=== PATIENT | female | born 1955 | race Caucasian/White ===

== ENCOUNTER → 2019-05-27 23:09 | Outpatient (CLI) | payer MEDICAID, SELFPAY ==
[2019-05-27 18:20] VITALS: BMI 30.1
[2019-05-27 23:15] LABS: Absolute Lymphocyte Count 2.09 X10^3/uL (0.83-4.51); Absolute Neutrophil Count 6.1 X10^3/uL (2.0-7.7); Basophil# 0.07 X10^3/uL; Basophil% 0.8 % (0-1); Eosinophil# 0.16 X10^3/uL; Eosinophils% 1.8 % (0-5); Hematocrit 47.5 % (37-47); Hemoglobin 15.4 g/dL (12.0-15.0); Lymphocyte # 2.09 X10^3/ul (4.0); Lymphocyte % 23.1 % (19-41); Mean Corp Hgb Conc 32.4 g/dL (32-36); Mean Corpuscular Hgb 30.6 pg (27.0-32.0); Mean Corpuscular Volume 94.2 fL (81-99); Mean Platelet Vol. 10.2 fl (6.2-12.0); Monocyte% 6.6 % (0-10); NRBC Flagged by Analyzer 0 % (0-5); Neutrophil % 67.5 % (47-70); Platelet Count 296 K/mm3 (150-450); RBC Distribution Width CV 13.3 % (11.6-14.6); RBC Distribution Width SD 46.5 fl (35.1-43.9); Red Blood Count 5.04 M/mm3 (4.2-5.4)
[2019-05-27 23:35] LABS: ALB/GLOB Ratio 1.3 RATIO (0.9-2.4); AST(SGOT) 14 U/L (15-37); Alanine Aminotransfer ALT/SGPT 27 U/L (13-56); Albumin, Serum 4.2 g/dL (3.2-5.0); Alkaline Phosphatase 104 U/L (45-117); Anion Gap 4 (5-15); BUN 24 mg/dL (7-18); BUN/Creat Ratio 27.1 RATIO (10-20); Calcium,Total 9.3 mg/dL (8.5-10.1); Chloride 108 mmol/L (98-107); Creatinine, Serum 0.89 mg/dL (0.55-1.02); EST Glomerular Filtration Rate 68 mL/min (>60); Est Glom Filt Rate - Afr Amer 82 mL/min (>60); Globulin 3.2 g/dL (2.2-4.2); Glucose 101 mg/dL (74-106); Magnesium 2.2 mg/dL (1.6-2.6); Potassium 4.4 mmol/L (3.5-5.1); Protein, Total 7.4 g/dL (6.4-8.2); Sodium Level 141 mmol/L (136-145); Thyroid Stim Hormone (TSH) 1.23 uIU/mL (0.358-3.74)
== END ==
PROVIDERS: Referring Provider Nurse Practitioner; Visit Provider Nurse Practitioner
DX: I49.8 Other specified cardiac arrhythmias (principal); I10 Essential (primary) hypertension
CPT/HCPCS: 80053; 83735; 84443; 84484; 85025; 86141

== ENCOUNTER → 2020-05-16 | Outpatient (CLI) | payer MEDICARE, SELFPAY ==
[2020-05-16 15:57] VITALS: BMI 31.8
[2020-05-16 21:37] LABS: Absolute Lymphocyte Count 2.28 X10^3/uL (0.83-4.51); Absolute Neutrophil Count 5.1 X10^3/uL (2.0-7.7); Basophil# 0.08 X10^3/uL; Eosinophil# 0.17 X10^3/uL; Eosinophils% 2.1 % (0-5); Hematocrit 46.4 % (37-47); Hemoglobin 15.1 g/dL (12.0-15.0); Lymphocyte # 2.28 X10^3/ul (4.0); Lymphocyte % 27.7 % (19-41); Mean Corp Hgb Conc 32.5 g/dL (32-36); Mean Corpuscular Hgb 30.6 pg (27.0-32.0); Mean Corpuscular Volume 94.1 fL (81-99); Mean Platelet Vol. 10.4 fl (6.2-12.0); Monocyte# 0.55 X10^3/uL; Monocyte% 6.7 % (0-10); NRBC Flagged by Analyzer 0 % (0-5); Neutrophil # 5.13 X10^3/uL (2.7-7.7); Neutrophil % 62.1 % (47-70); Platelet Count 311 K/mm3 (150-450); RBC Distribution Width CV 12.5 % (11.6-14.6); RBC Distribution Width SD 43.3 fl (35.1-43.9); Red Blood Count 4.93 M/mm3 (4.2-5.4); White Blood Count 8.2 K/mm3 (4.4-11.0)
[2020-05-16 22:07] LABS: ALB/GLOB Ratio 1.4 RATIO (0.9-2.4); AST(SGOT) 17 U/L (15-37); Alanine Aminotransfer ALT/SGPT 24 U/L (13-56); Albumin, Serum 4.3 g/dL (3.2-5.0); Alkaline Phosphatase 95 U/L (45-117); Anion Gap 6 (5-15); BUN 12 mg/dL (7-18); BUN/Creat Ratio 13.7 RATIO (10-20); Calcium,Total 9.2 mg/dL (8.5-10.1); Chloride 107 mmol/L (98-107); Cholesterol 149 mg/dL (200); Creatinine, Serum 0.88 mg/dL (0.55-1.02); EST Glomerular Filtration Rate 69 mL/min (>60); Est Glom Filt Rate - Afr Amer 83 mL/min (>60); Globulin 3.1 g/dL (2.2-4.2); Glucose 88 mg/dL (74-106); High Density Lipoprotein 57 mg/dL; Potassium 4.1 mmol/L (3.5-5.1); Protein, Total 7.4 g/dL (6.4-8.2); Sodium Level 140 mmol/L (136-145); Triglycerides 65 mg/dL; Very Low Density Lipoprotein 13 mg/dL (5-40)
== END | disposition home or self-care (01) ==
PROVIDERS: Referring Provider Nurse Practitioner; Visit Provider Nurse Practitioner
DX: I10 Essential (primary) hypertension (principal)
CPT/HCPCS: 80053; 80061; 85025

== ENCOUNTER → 2020-06-07 07:05 | Outpatient (CLI) | payer MEDICARE, SELFPAY ==
[2020-05-16 15:57] VITALS: BMI 31.8
[2020-05-31 12:59] VITALS: BMI 31.8
--- NOTE | 2020-06-07 07:09 | CT_ITS ---
STUDY: CT CHEST WITH CONTRAST REASON FOR EXAM: Female, 64 years old. BREAST CANCER STAGING. RIGHT LUMPECTOMY. RADIATION DOSAGE (If Supplied By Facility): CTDIvol = ( 14.65 ) mGy, DLP = ( 436.51 ) mGycm TECHNIQUE: Transaxial imaging was performed following intravenous administration of IV 100mL Isovue-300. Multiplanar coronal and sagittal images were reformatted. Individualized dose optimization techniques were used for this CT. COMPARISON: None. FINDINGS: Surgical clips are seen in the right axillary region. Postoperative changes are seen within the deep central portion of the right breast including but the history of prior lumpectomy. Small benign-appearing bilateral axillary lymph nodes. Mild degree of emphysematous changes. Minimal increased markings at the right lung base suggestive of past or atelectasis. There is no demonstrated pleural abnormality. Normal heart and pericardium. There are multiple small lymph nodes within the mediastinum, which are normal in size and morphology most compatible with reactive lymph hyperplasia. Normal hilar regions. Normal enhanced pulmonary arteries. Normal aorta arch and descending thoracic aorta. There are multi-level degenerative changes of the thoracic spine. Multiple cysts are seen in the liver of varying sizes. CT/Chest WITH Contrast IMPRESSION: Mild degree of right basilar atelectasis. Status post right lumpectomy and right axillary node dissection. Multiple hepatic cysts. Electronically Signed: Chandu Dean, at 12:59 EDT , Service support ,
[2020-06-07 07:35] LABS: Absolute Lymphocyte Count 1.73 X10^3/uL (0.83-4.51); Absolute Neutrophil Count 3.7 X10^3/uL (2.0-7.7); Basophil# 0.05 X10^3/uL; Basophil% 0.8 % (0-1); Eosinophil# 0.12 X10^3/uL; Hematocrit 48.8 % (37-47); Hemoglobin 15.6 g/dL (12.0-15.0); Lymphocyte # 1.73 X10^3/ul (4.0); Lymphocyte % 28.7 % (19-41); Mean Corpuscular Hgb 30.8 pg (27.0-32.0); Mean Corpuscular Volume 96.3 fL (81-99); Monocyte# 0.43 X10^3/uL; Monocyte% 7.1 % (0-10); NRBC Flagged by Analyzer 0 % (0-5); Neutrophil # 3.67 X10^3/uL (2.7-7.7); Neutrophil % 61.1 % (47-70); Platelet Count 279 K/mm3 (150-450); RBC Distribution Width CV 13.1 % (11.6-14.6); RBC Distribution Width SD 46.3 fl (35.1-43.9); Red Blood Count 5.07 M/mm3 (4.2-5.4)
[2020-06-07 07:49] LABS: ALB/GLOB Ratio 1.3 RATIO (0.9-2.4); AST(SGOT) 17 U/L (15-37); Alanine Aminotransfer ALT/SGPT 25 U/L (13-56); Alkaline Phosphatase 92 U/L (45-117); Anion Gap 4 (5-15); BUN 19 mg/dL (7-18); Calcium,Total 9.8 mg/dL (8.5-10.1); Chloride 109 mmol/L (98-107); Creatinine, Serum 0.95 mg/dL (0.55-1.02); EST Glomerular Filtration Rate 63 mL/min (>60); Est Glom Filt Rate - Afr Amer 76 mL/min (>60); Glucose 98 mg/dL (74-106); Potassium 4.5 mmol/L (3.5-5.1); Sodium Level 143 mmol/L (136-145)
[2020-06-07 15:15] LABS: Xtra Tube EP Lab EXTRA TUBE
== END ==
PROVIDERS: Internal Medicine Hematology & Oncology; PCP Nurse Practitioner; Referring Provider Student in an Organized Health Care Education/Training Program; Visit Provider Student in an Organized Health Care Education/Training Program
DX: C50.211 Malignant neoplasm of upper-inner quadrant of right female breast (principal)
CPT/HCPCS: 36415; 71260; 80053; 85025; Q9967

== ENCOUNTER → 2020-09-01 07:53 | Outpatient (CLI) | payer MEDICARE, MEDICAID, SELFPAY ==
[2020-05-31 12:59] VITALS: BMI 31.8
[2020-08-17 11:40] VITALS: BMI 32.2
[2020-08-31 09:16] VITALS: BMI 32.4
--- NOTE | 2020-09-01 08:02 | ECHODONC_ITS ---
Reason For Study: ARRHYTHMIA Procedure This was a 2D Doppler, Color Flow transthoracic echocardiogram. Myocardial strain analysis was performed in this exam to aid in the assessment of cardiac function. Exam performed in department. Left Ventricle Normal LV size. Left ventricular systolic function is normal. The estimated ejection fraction is 60 %. Stage 1 diastolic dysfunction. No regional wall motion abnormalities noted. Right Ventricle Normal RV size. Normal systolic function. Atria Normal left atrium. Normal right atrium. Mitral Valve Normal mitral valve. Tricuspid Valve Normal tricuspid valve. Mild tricuspid valve insufficiency. Pulmonary artery systolic pressure is 30 mmHg. Aortic Valve Normal aortic valve. Trisinus/trileaflet aortic valve. Pulmonic Valve Normal pulmonic valve. Great Vessels Normal aortic root. Pericardium/Pleural No pericardial effusion. MMode/2D Measurements & Calculations LVIDd: 5.2 cm IVSd: 0.82 cm Ao root diam: 3.5 cm LVIDs: 3.4 cm LVPWd: 0.88 cm RVDd: 2.8 cm FS: 34.0 % LAV(MOD-bp): 78.3 ml LA A4 area: 22.2 cm2 LA dimension(2D): 3.8 cm LAV(MOD-bp) Indexed: 42.2 ml/m2 LAV(MOD-sp2): 70.9 ml LAV(MOD-sp4): 70.2 ml RA A4 area: 15.3 cm2 Time Measurements MV dec time: 0.12 sec Doppler Measurements & Calculations MV E max evelio: 67.0 cm/sec Lat Peak E' Evelio: 10.6 cm/sec Med Peak E' Evelio: 7.3 cm/sec MV A max evelio: 83.4 cm/sec E/E' lat: 6.3 E/E' med: 9.2 MV E/A: 0.80 Ao V2 max: 134.7 cm/sec LV V1 max: 97.0 cm/sec PA V2 max: 122.9 cm/sec Ao max P.3 mmHg LV V1 max P.8 mmHg TR max evelio: 257.9 cm/sec TR max P.6 mmHg Interpretation Summary Normal LV size. Left ventricular systolic function is normal. The estimated ejection fraction is 60 %. Stage 1 diastolic dysfunction. The global longitudinal strain is normal. The global longitudinal strain = -19.7 % (normal). Ordering Physician: Nico Hook Referring Physician: Loan Dias Performed By: Denise Mueller RDCS, RVT
== END ==
PROVIDERS: PCP Nurse Practitioner; Referring Provider Internal Medicine Cardiovascular Disease; Visit Provider Internal Medicine Cardiovascular Disease
DX: I49.8 Other specified cardiac arrhythmias (principal); I49.49 Other premature depolarization; I10 Essential (primary) hypertension; C50.311 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 female breast
CPT/HCPCS: 93306; 93356

== ENCOUNTER 2020-09-07 10:24 | Observation (INO) | payer MEDICARE, MEDICAID, SELFPAY ==
[2020-05-31 12:59] VITALS: BMI 31.8
[2020-08-31 09:16] VITALS: BMI 32.4
[2020-09-07] VITALS (13 sets, daily range): BP systolic 114–183; BP diastolic 60–108; PULSE 82–102; RESP 10–22; TEMP 36.7–36.8; O2SAT 96–100; BMI 33.1; BMI 31.8; BMI 31.9
--- NOTE | 2020-09-07 10:28 | NURSING ---
NO OLD EKGS
--- NOTE | 2020-09-07 10:54 | EKG12_ITS ---
Test Reason : CP Blood Pressure : / mmHG Vent. Rate : 097 BPM Atrial Rate : 097 BPM P-R Int : 134 ms QRS Dur : 090 ms QT Int : 360 ms P-R-T Axes : 051 -37 042 degrees QTc Int : 457 ms Normal sinus rhythm Left axis deviation Abnormal ECG Confirmed by HARRY LEIVA, ROBIN ([id number]), editor city ALONSO VANEGAS ([id number]) on 09/08/2020 2:10:08 PM Referred By: GORGE Confirmed By:ROBIN MCDONALD MD
--- NOTE | 2020-09-07 10:54 | RAD_ITS ---
STUDY: X-RAY CHEST REASON FOR EXAM: Female, 64 years old. CHEST PRESSURE STARTED SATURDAY NIGHT, BREAST CA RIGHT SIDE TECHNIQUE: Single AP portable view of the chest. COMPARISON: None. FINDINGS: A left-sided port catheter is in situ with the tip at the junction of the superior vena cava and right atrium. EKG electrodes are seen. Surgical clips are seen overlying the right breast. The lungs are clear and expanded. There is no demonstrated pleural abnormality. Normal size heart. Normal mediastinum and sydni. Normal visualized pulmonary arteries. Normal visualized aortic arch and descending thoracic aorta. Normal visualized thoracic spine. Normal visualized ribs, clavicles, and shoulders. There is no demonstrated abnormality of the visualized soft tissue structures of the upper abdomen. RAD/Chest 1 View (Portable) IMPRESSION: No acute abnormality is seen. Electronically Signed: Chandu Dean MD at 12:06 EST , Service support ,
--- NOTE | 2020-09-07 10:55 | ED.DCSUM_ITS ---
- ER Visit Summary Date of Service: 09/07/20 Chief Complaint: Chest pain History of Present Illness: The patient is a 64 F who presents with chest pain that has been constant for the past 2 days. Patient states it feels like a pressure over her upper substernal area. Patient states it has been waxing and waning over the past 2 days. Patient states nothing makes it better or worse. Patient denies any nausea or vomiting. Patient does admit to occasional diaphoresis. Patient also admits to some mild cough and shortness of breath. Patient denies any fevers. Patient admits to some lightheadedness and palpitations. Patient states she does have a history of PVCs. Patient has a history of hypertension and right breast cancer. Patient denies any other PE or cardiac risk factors. Physical Examination: Vital signs are stable. Patient is afebrile. Patient is in no acute distress. Oral mucosa is pink and moist. Neck is supple. Trachea is midline. There is no JVD noted. Heart was regular rate and rhythm. Lungs are clear and equal bilaterally. Abdomen is soft. Bowel sounds are normal. There is no tenderness. There is no rebound or guarding noted. Skin is warm dry. Cranial nerves II through XII are intact. There are no focal motor or sensory deficits noted. Extremities are intact. There is no calf tenderness or edema. Test Results: EKG was obtained. On my interpretation, there is a normal sinus rhythm with a rate of 97. There are no acute ST or T wave changes. CBC and basic metabolic profile were obtained and were essentially within normal limits. Troponin was normal. D-dimer was normal. Portable 1 view chest x-ray was obtained. On my interpretation, lung julian are clear. There is normal cardiac silhouette. Bony thorax is normal. There is no acute process noted. Radiologist also interpreted the x-ray and agrees. Emergency Department Course and Treatment: Patient was given aspirin and sublingual nitroglycerin here. Patient had minimal relief with her sublingual n itroglycerin. Patient was given a dose of morphine. Patient has a HEART score of 4. Case was discussed with the hospitalist. Patient will be admitted to PCU for observation. Patient understood and was agreeable with the plan. All questions were answered. Disposition: Admit to hospital for observation Impression: 1. Chest pain This note was generated with MagMeation software. It may contain incorrect words, spelling, and punctuation that were not noted in review of the chart prior to signing ED Disposition - Plan for ED Patient: Disposition: Acute Care Hospital [facility] [place] Diagnosis: Chest pain Referrals: Loan Dias NP, CLOTHING SUPERVISOR-C [Primary Care Provider] -
[2020-09-07] MEDS: Aspirin 81 MG TAB.CHEW 324 MG PO (11:15)
[2020-09-07] MEDS: Nitroglycerin SL (ED/IMG/CATH) 0.4 MG TABLET SUBLINGUAL ×2 (11:28→11:41)
[2020-09-07 11:45] LABS: Hematocrit 35.9 % (37-47); Mean Corp Hgb Conc 33.4 g/dL (32-36); Mean Corpuscular Hgb 32.2 pg (27.0-32.0); Mean Corpuscular Volume 96.2 fL (81-99); Mean Platelet Vol. 9.4 fl (6.2-12.0); POSITIVE COUNT YES; POSITIVE MORPHOLOGY YES; Platelet Count 322 K/mm3 (150-450); RBC Distribution Width CV 14.9 % (11.6-14.6); RBC Distribution Width SD 51.8 fl (35.1-43.9); Red Blood Count 3.73 M/mm3 (4.2-5.4); White Blood Count 7.4 K/mm3 (4.4-11.0)
[2020-09-07 11:49] LABS: Differential Indicated MANUAL DIFF
[2020-09-07 11:53] LABS: D-Dimer Quantitative (DVT/PE) 0.45 FEU/ug/m (0.27-0.49)
[2020-09-07 12:02] LABS: Anion Gap 3 (5-15); BUN 19 mg/dL (7-18); BUN/Creat Ratio 23.1 RATIO (10-20); Chloride 111 mmol/L (98-107); Creatinine, Serum 0.82 mg/dL (0.55-1.02); EST Glomerular Filtration Rate 74 mL/min (>60); Est Glom Filt Rate - Afr Amer 90 mL/min (>60); Estimated Creatinine Clearance 56.58 ml/min; Glucose 90 mg/dL (74-106); Potassium 4.1 mmol/L (3.5-5.1); Sodium Level 142 mmol/L (136-145)
[2020-09-07 12:24] LABS: Eosinophil 1 % (0-5); Lymphocyte 15 % (19-41); Monocyte 6 % (0-10); Myelocyte 1 (0-0); Neutrophil-Segmented 76 % (47-70); Platelet Estimate ADEQUATE (ADEQ); Promyelocyte 1 (0-0); Red Cell Morphology NORM C+C NORMAL (NORM C&C); Total Cells Counted 100 (MANUAL DIFF)
[2020-09-07 12:25] LABS: Absolute Lymphocyte Count 1.11 X10^3/uL (0.83-4.51); Absolute Neutrophil Count 5.6 X10^3/uL (2.0-7.7); Lymphocyte # 1.11 X10^3/ul (4.0)
--- NOTE | 2020-09-07 13:20 | NURSING ---
PCU CP PAINTSIL
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
--- NOTE | 2020-09-07 13:47 | PCS.PANDOC ---
PANDEMIC DOCUMENTATION INITIATED: Date: 09/07/2020 Time: [id number]
[2020-09-07 15:00] LABS: AST(SGOT) 73 U/L (15-37); Alanine Aminotransfer ALT/SGPT 117 U/L (13-56); Albumin, Serum 3.6 g/dL (3.2-5.0); Alkaline Phosphatase 88 U/L (45-117); Bilirubin, Direct 0.09 mg/dL (0.00-0.30); Globulin 2.9 g/dL (2.2-4.2); Protein, Total 6.5 g/dL (6.4-8.2)
[2020-09-07] MEDS: 0.9% Saline Lock 10 ML Syringe IV (15:16)
[2020-09-07] MEDS: 0.9% Normal Saline 1,000 ML 100 ML IV ×2 (15:16→23:34)
--- NOTE | 2020-09-07 16:28 | EKG12_ITS ---
Test Reason : CHEST PAIN Blood Pressure : / mmHG Vent. Rate : 093 BPM Atrial Rate : 093 BPM P-R Int : 134 ms QRS Dur : 090 ms QT Int : 374 ms P-R-T Axes : 041 -37 033 degrees QTc Int : 465 ms Normal sinus rhythm Left axis deviation Abnormal ECG No previous ECGs available Confirmed by SERGIO LEIVA, KIT ([id number]), newspaper editor managing RICHARD HINSON ([id number]) on 09/19/2020 12:59:45 PM Referred By: TERESITA Confirmed By:SARAI HILL MD
[2020-09-07] MEDS: hydrOXYzine PAM 25 MG Capsule 50 MG PO (20:54)
[2020-09-08] VITALS (7 sets, daily range): BP systolic 122–130; BP diastolic 71–84; PULSE 76–106; RESP 17–18; TEMP 36.6–37.3; O2SAT 97–100
--- NOTE | 2020-09-08 05:00 | EKG12_ITS ---
Test Reason : AM Blood Pressure : / mmHG Vent. Rate : 080 BPM Atrial Rate : 080 BPM P-R Int : 150 ms QRS Dur : 092 ms QT Int : 404 ms P-R-T Axes : 041 -34 -09 degrees QTc Int : 465 ms Normal sinus rhythm Left axis deviation Nonspecific T wave abnormality Abnormal ECG When compared with ECG of 07-SEP-2020 10:27, MANUAL COMPARISON REQUIRED, DATA IS UNCONFIRMED Confirmed by HARRY LEIVA, ROBIN ([id number]), digital editor ALONSO VANEGAS ([id number]) on 09/14/2020 11:20:09 AM Referred By: TERESITA Confirmed By:ROBIN MCDONALD MD
[2020-09-08 06:10] LABS: Hematocrit 35.8 % (37-47); Hemoglobin 11.8 g/dL (12.0-15.0); Mean Corpuscular Hgb 32.2 pg (27.0-32.0); Mean Corpuscular Volume 97.8 fL (81-99); Mean Platelet Vol. 9.2 fl (6.2-12.0); POSITIVE COUNT YES; POSITIVE MORPHOLOGY YES; Platelet Count 293 K/mm3 (150-450); RBC Distribution Width CV 14.9 % (11.6-14.6); RBC Distribution Width SD 52.9 fl (35.1-43.9); Red Blood Count 3.66 M/mm3 (4.2-5.4); White Blood Count 5.4 K/mm3 (4.4-11.0)
[2020-09-08 06:16] LABS: Differential Indicated MANUAL DIFF
[2020-09-08 06:33] LABS: Total Cells Counted 100 (MANUAL DIFF)
[2020-09-08 06:37] LABS: Basophil 1 % (0-1); Eosinophil 2 % (0-5); Lymphocyte 18 % (19-41); Metamyelocyte 1 % (0-1); Monocyte 6 % (0-10); Myelocyte 2 (0-0); Neutrophil-Band 1 % (0-5); Neutrophil-Segmented 69 % (47-70); Platelet Estimate ADEQUATE (ADEQ)
[2020-09-08 06:38] LABS: Absolute Neutrophil Count 3.8 X10^3/uL (2.0-7.7); Neutrophil # 3.75 X10^3/uL (2.7-7.7); Red Cell Morphology NORM C+C NORMAL (NORM C&C)
[2020-09-08 06:39] LABS: Absolute Lymphocyte Count 0.96 X10^3/uL (0.83-4.51); Lymphocyte # 0.96 X10^3/ul (4.0)
[2020-09-08 06:43] LABS: ALB/GLOB Ratio 1.1 RATIO (0.9-2.4); AST(SGOT) 54 U/L (15-37); Alanine Aminotransfer ALT/SGPT 101 U/L (13-56); Albumin, Serum 3.1 g/dL (3.2-5.0); Alkaline Phosphatase 81 U/L (45-117); Anion Gap 5 (5-15); BUN 19 mg/dL (7-18); BUN/Creat Ratio 23.5 RATIO (10-20); Calcium,Total 8.5 mg/dL (8.5-10.1); Chloride 112 mmol/L (98-107); Creatinine, Serum 0.81 mg/dL (0.55-1.02); EST Glomerular Filtration Rate 75 mL/min (>60); Est Glom Filt Rate - Afr Amer 91 mL/min (>60); Estimated Creatinine Clearance 57.28 ml/min; Globulin 2.8 g/dL (2.2-4.2); Glucose 85 mg/dL (74-106); Potassium 4.1 mmol/L (3.5-5.1); Protein, Total 5.9 g/dL (6.4-8.2); Sodium Level 142 mmol/L (136-145)
[2020-09-08] MEDS: Lisinopril 10 MG Tablet PO (06:44)
[2020-09-08] MEDS: Pantoprazole Sodium 20 MG Tablet PO (06:44)
[2020-09-08] MEDS: Acetaminophen 325 MG Tablet 650 MG PO (10:00)
[2020-09-08 10:11] LABS: Pathologist Review Reviewed
[2020-09-08 10:14] LABS: Pathologist Review Reviewed
--- NOTE | 2020-09-08 13:25 | STRESSREP ---
Stress Test Report Pharmacologic myocardial perfusion stress test. 64-year-old lady with a history of chest pain. Stress protocol: Resting EKG demonstrates normal sinus rhythm with a rate of 90 bpm normal intervals are noted resting blood pressure is 144/80 mmHg. 0.4 mg of regadenoson was infused per usual protocol followed by rapid intravenous saline flush injection continuous EKG monitoring was performed. The maximum heart rate attained was 142 bpm which was 91% of max impacted heart rate the maximum workload was 1 metabolic equivalent. At rest there were no ST or T wave changes noted suggest ischemia at peak exercise nonspecific ST-T wave changes were noted with no meet the criteria for ischemia. No clinical angina was noted the test was terminated due to end of the protocol. Myocardial perfusion protocol. 11.3 mCi of technetium 99m sestamibi was injected at rest. 0.4 mg of regadenoson was infused per usual protocol. At peak infusion 30.0 mCi of technetium 99m sestamibi was injected stress images were obtained stress and rest images were reconstructed and compared in the short axis vertical long horizontal long axis. Gated images were also obtained Perfusion SPECT analysis: Review of the images demonstrate normal uptake of tracer noted in all areas of the myocardium the resting images similarly demonstrate normal uptake of tracer noted in all areas of the myocardium. No reversibility is noted suggest ischemia no previous infarct is noted. Gated SPECT analysis: The gated ejection fraction is 58%. Conclusion: Normal pharmacologic myocardial perfusion stress test. Preserved ejection fraction.
--- NOTE | 2020-09-08 13:36 | DCINST_ITS ---
- Discharge Diagnoses Current Active Problems: Current Active and Chronic Problems (Last Reviewed 08/31/20 @ 09:14 by Carin Carnes) Chest pain (Acute) Breast cancer of lower-inner quadrant of right female breast (Chronic) Essential (primary) hypertension (Chronic) You will use the following diet at home:: No restrictions Your food should be the consistency of: Regular Your liquids should be the consistency of: Regular/Thin Allergies/Adverse Reactions: Allergies adhesive tape Allergy (Intermediate, Verified 09/07/20 10:25) Hives oxycodone Allergy (Intermediate, Verified 09/07/20 10:25) Rash Medications to take at Discharge Lidocaine/Prilocaine [Lidocaine-Prilocaine Cream] 1 gm TP DAILY PRN PRN 30 Days #1 tube 06/13/20 Multivitamin/Iron/Folic Acid [Centrum Women Tablet] 1 ea PO DAILY 06/13/20 Ondansetron [Ondansetron Odt] 8 mg PO Q8H PRN PRN 10 Days #30 tab.rapdis 06/13/20 lisinopril 10 mg tablet 10 mg PO DAILY #90 tab 07/29/20 omeprazole magnesium 20 mg tablet,delayed release 20 mg PO DAILY 08/08/20 Hydroxyzine HCl 50 mg PO QHS 08/17/20 Triamcinolone 0.1% Ointment [Kenalog] 1 applic TOPICAL BID 08/17/20 Primary Care Physician: Loan Dias POOL MANAGER, POOL MANAGER-C [Primary Care Provider] - Within 2 Weeks Test Results: Test results from this visit will be discussed in further detail at your follow- up appointment, if applicable. Please Follow Up With: Antonia Escalante MD When: 09/13/2020, already scheduled. Proposed Discharge Date: 09/08/20
--- NOTE | 2020-09-08 13:38 | DS.PCM_ITS ---
Discharge Date and Diagnosis - Problem List Patient Problems: Active and Suspected Problems (Last Reviewed 08/31/20 @ 09:14 by Carin Carnes) Chest pain (Acute) Date of Admission: 09/07/20 Date of Discharge: 09/08/20 - Primary Discharge Diagnosis Acute Problems: Active Problems (Last Reviewed 08/31/20 @ 09:14 by Carin Carnes) Chest pain (Acute) - Secondary Discharge Diagnosis Chronic Problems: Chronic Problems (Last Reviewed 08/31/20 @ 09:14 by Carin Carnes) Breast cancer of lower-inner quadrant of right female breast (Chronic) Ventricular trigeminy (Chronic) Essential (primary) hypertension (Chronic) Hospital Course and Treatment Imaging Results: 09/08/20 05:55 Nuclear Stress Test - Chemical [NM] AM (NON MEDS) Operations: None Procedures: None Summary of Care Provided: The patient is a 64 year old F presents with midsternal chest pain that radiates to her back. Just persistent. Did not wax or wane. Presented to the emergency room for evaluation. Patient underwent a cardiac work-up with EKG, troponins and a stress test, all of which were negative. On exam, patient had no reproducible anterior chest wall tenderness but did have some slight back tenderness in the area of her complaints. Discussed with the patient that is not cardiac would not do any additional work-up in the hospital and reassurance provided to her. Though patient was stated that she is does continue to have persistent symptoms or if they do get worse and that may warrant further evaluation but no additional evaluation is needed at this time. [] Patient Problems: Active and Suspected Problems (Last Reviewed 08/31/20 @ 09:14 by Carin Carnes) Chest pain (Acute) - Physical Exam Vitals/I&O's: Vital Signs Temp Pulse Resp BP Pulse Ox 37.3 C 90 18 123/71 H 99 09/08/20 09:45 09/08/20 11:00 09/08/20 09:45 09/08/20 09:45 09/08/20 09:45 Oxygen Delivery Method Room Air Weight: 82.9 kg Body Mass Index (BMI) 31.8 Intake and Output for Last 24 Hours 09/06/20 09/07/20 09/08/20 23:59 23:59 23:59 Intake Total 1190 / 1190 625 / 625 Balance 1190 / 1190 / 625 General: Alert, No apparent distress HEENT: Atraumatic, Normocephalic Oral: Moist Mucosa, No Gingival or Mucosal Lesions/ Ulcerations Neck: No Nodes, Thyroid Normal Size and Texture Lungs: Clear to auscultation, Normal air movement, No rhonchi, No wheeze Cardiovascular: Regular rate, Regular Rhythm, Normal S1, Normal S2 Abdomen: Bowel Sounds Present, Soft, Non Tender, Non-Distended, No Hepato- splenomegaly Extremities: No edema, No Calf Tenderness Laboratory Results 09/07/20 11:25: Diff Path Review Reviewed 09/07/20 14:11: Total Bilirubin 0.40, Direct Bilirubin 0.09, AST 73 H, ALT 117 H , Alkaline Phosphatase 88, Troponin I < 0.015, Total Protein 6.5, Albumin 3.6, Globulin 2.9 09/07/20 18:07: Troponin I < 0.015 09/08/20 05:48: WBC 5.4, RBC 3.66 L, Hgb 11.8 L, Hct 35.8 L, MCV 97.8, MCH 32.2 H, MCHC 33.0, RDW Std Deviation 52.9 H, RDW Coeff of Richelle 14.9 H, Plt Count 293, MPV 9.2, Neut % (Auto) Not Reportable, Absolute Neuts (auto) 3.8, Absolute Lymphs (auto) 0.96, Total Counted 100, Neutrophils % (Manual) 69, Band Neutrophils % 1, Lymphocytes % (Manual) 18 L, Monocytes % (Manual) 6, Eosinophils % (Manual) 2, Basophils % (Manual) 1, Metamyelocytes % 1, Myelocytes % 2 H, Diff Path Review Reviewed, Platelet Estimate ADEQUATE, RBC Morphology NORM C+C 09/08/20 05:48: Sodium 142, Potassium 4.1, Chloride 112 H, Carbon Dioxide 25.0, Anion Gap 5, BUN 19 H, Creatinine 0.81, Estim Creat Clear Calc 57.28, Est GFR (MDRD) Af Amer 91, Est GFR (MDRD) Non-Af 75, BUN/Creatinine Ratio 23.5 H, Glucose 85, Calcium 8.5, Total Bilirubin 0.40, AST 54 H, ALT 101 H, Alkaline Phosphatase 81, Total Protein 5.9 L, Albumin 3.1 L, Globulin 2.8, Albumin/Globulin Ratio 1.1 Current Medications Acetaminophen (Acetaminophen 325 Mg Tablet) 650 mg PO Q4H PRN PRN PRN Reason: Pain 1-10 or Fever Last Admin: 09/08/20 10:00 Dose: 650 mg Documented by: Albuterol Sulfate (Albuterol 2.5 Mg/3 Ml Vial.Neb.) 2.5 mg INHALATION Q2H PRN PRN PRN Reason: SOB/Wheezing Enoxaparin Sodium (Enoxaparin 40 Mg/0.4 Ml Syringe) 40 mg SC DAILY [facility] Hydroxyzine Pamoate (Hydroxyzine Nancy 25 Mg Capsule) 50 mg PO QHS [facility] Last Admin: 09/07/20 20:54 Dose: 50 mg Documented by: Lisinopril (Lisinopril 10 Mg Tablet) 10 mg PO DAILY [facility] Last Admin: 09/08/20 06:44 Dose: 10 mg Documented by: Multivitamins/Minerals (Multivitamins,Ther W-Minerals Tablet) 1 tablet PO DAILY@0800 [facility] Last Admin: 09/08/20 06:48 Dose: Not Given Documented by: Nitroglycerin (Nitroglycerin (Inpatient Use) 0.4 Mg Tab.Subl) 0.4 mg SUBLINGUAL Q5M PRN PRN Reason: CARDIAC/CHEST PAIN Ondansetron HCl (Ondansetron 4 Mg/2 Ml Vial) 4 mg IV Q8H PRN PRN PRN Reason: NAUSEA/VOMITING Pantoprazole Sodium (Pantoprazole Sodium 20 Mg Tablet) 20 mg PO DAILY [facility] Last Admin: 09/08/20 06:44 Dose: 20 mg Documented by: Senna/Docusate Sodium (Senna/Docusate Sodium 1 Tablet) 2 tablet PO BID PRN PRN PRN Reason: Constipation Sodium Chloride (0.9% Saline Lock 10 Ml Syringe) 10 - 40 ml IV UD PRN PRN Reason: SALINE FLUSH Last Admin: 09/07/20 15:16 Dose: 10 ml Documented by: Discharge Diet: No Restrictions Home Medications: Medications to take at Discharge Lidocaine/Prilocaine [Lidocaine-Prilocaine Cream] 1 gm TP DAILY PRN PRN 30 Days #1 tube 06/13/20 Multivitamin/Iron/Folic Acid [Centrum Women Tablet] 1 ea PO DAILY 06/13/20 Ondansetron [Ondansetron Odt] 8 mg PO Q8H PRN PRN 10 Days #30 tab.rapdis 06/13/20 lisinopril 10 mg tablet 10 mg PO DAILY #90 tab 07/29/20 omeprazole magnesium 20 mg tablet,delayed release 20 mg PO DAILY 08/08/20 Hydroxyzine HCl 50 mg PO QHS 08/17/20 Triamcinolone 0.1% Ointment [Kenalog] 1 applic TOPICAL BID 08/17/20 Primary Care Physician: Loan Dias ADDICTIONS COUNSELOR, ADDICTIONS COUNSELOR-C [Primary Care Provider] - Within 2 Weeks Please Follow Up With: Antonia Escalante MD When: 09/13/2020, already scheduled. Disposition: Home Minutes spent on discharge:: 24 Patient Condition:: Good Medical Necessity - Tobacco Use Smoking Status: Former smoker Tobacco Use: Non-smoker Meaningful Use Info Meaningful Use Diagnoses (Choose all that apply): None applicable OBSV E&M: 26496 Observation care discharge
--- NOTE | 2020-09-08 14:10 | CASEMGMT ---
This RN ANNE to room with BARCENAS form at this time, explanation done-pt voices understanding, and signs BARCENAS form at this time. Original to chart and copy to pt at this time. Pt voices no further questions/concerns/needs at this time. SStaten BERNABE RODRÍGUEZ
[2020-09-08] MEDS: 0.9% Saline Lock 10 ML Syringe IV (14:38)
== END 2020-09-08 13:37 | disposition home or self-care (01) ==
LOC: ED 13:18 → PCU 13:27
PROVIDERS: Admitting Provider Internal Medicine; Emergency Provider Emergency Medicine; PCP Nurse Practitioner
DX: R07.89 Other chest pain (principal); R06.02 Shortness of breath; R42 Dizziness and giddiness; R00.2 Palpitations; I10 Essential (primary) hypertension; Z17.0 Estrogen receptor positive status [ER+]; C50.311 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 female breast; K21.9 Gastro-esophageal reflux disease without esophagitis; Z79.899 Other long term (current) drug therapy; E66.9 Obesity, unspecified; Z87.891 Personal history of nicotine dependence; Z68.33 Body mass index [BMI] 33.0-33.9, adult; R00.8 Other abnormalities of heart beat; R94.31 Abnormal electrocardiogram [ECG] [EKG]
CPT/HCPCS: 36415; 36591; 71045; 78452; 80048; 80053; 80076; 84484; 85025; 85379; 93005; 93017; 96360; 96361; 97802; 99218; 99251; 99285; A9500; J7030; A4216; G0378; G0463; J2785

== ENCOUNTER 2020-09-19 08:30 | Day surgery (SDC) | payer MEDICARE, MEDICAID, SELFPAY ==
[2020-09-09 20:01] VITALS: BMI 31.8
[2020-09-15 08:52] VITALS: BMI 32.8
[2020-09-16 11:11] VITALS: BMI 32.8
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
--- NOTE | 2020-09-19 10:20 | CL.D_ITS ---
Patient Name: BO JACOB PAT Study Date: 09/19/2020 Performing: Nico Hook MD Ht: 62.99 inches 160 cm : 1955 Wt: 185.19 lbs 84 kg Age: 64 Gender: female BSA: 1.87 PROCEDURE(S) PERFORMED NJ30-AYF/COR/LV CLINICAL PROFILE AND INDICATIONS Indications: Suspected CAD Heart Failure: None Stress/Imaging Date: 09/08/20ress Test with SPECT MPI: Negative CONCLUSIONS Normal coronary arteries Normal LV size, wall motion,and systolic function RECOMMENDATIONS Medical therapy DESCRIPTION OF PROCEDURE The patient arrived to the procedure lab. The risks and benefits of the procedure as well as a full d escription of our services here and current unavailability of surgical backup were fully explained to the patient and/or their significant other prior to the catheterization. The Timeout was completed, verifying the correct patient and procedure. The patient's procedural site was prepped and draped in the usual fashion. Local anesthetic was given subcutaneously to right radial region with Lidocaine 2% . Using a modified Seldinger technique, arterial access was obtained via the right radial artery, a 6 Fr sheath was inserted. Left Coronary Artery selective angiography was performed in multiple views u sing a 5 Fr. 4.0 [place] catheter. Right Coronary Artery selective angiography was then performed in mu ltiple views using a 5 Fr. 4.0 [place] catheter. Left Ventriculography was performed in CHAMBERLAIN projection using a 5 Fr. [place] catheter. LV to AO pullback pressures were then recorded.The arterial sheath was pulled and a TR Band was applied for hemostasis. 11cc of air CORONARY ANGIOGRAPHY DOMINANCE: Right Dominant LEFT HEART ASSESSMENT Left Ventricular Ejection Fraction: by LV Gram 60 % Normal LV wall motion Normal Left Ventricular systolic function Normal Left Ventricular systolic function LEFT MAIN: Angiographically normal LEFT ANTERIOR DESCENDING ARTERY: Angiographically normal CIRCUMFLEX ARTERY: Angiographically normal RIGHT CORONARY ARTERY: Angiographically normal COMPLICATIONS No Complications PROCEDURE MEDICATIONS Fentanyl 50 mcg IV Versed 1 mg IV Versed 1 mg IV Fentanyl 25 mcg IV Oxygen: 2 L/min via nasal cannula Heparin diluted in 23cc Heparinized saline. Patient given 10cc IA of this solution. 09/19/2020 09:53:1 8 Verapamil 2.5mg, Ntg 100mcgs, 2000 units of Heparin diluted in 23cc Heparinized saline. Patient give n 10cc IA of this solution. 09/19/2020 09:53:18 SUMMARY OF HEMODYNAMIC DATA Time AIR REST ECG 08:53:08 AO 139/88 (111) SA 09:56:34 LV 122/2, 8 10:01:44 LV 119/2, 8 10:01:51 LV 122/2, 11 10:02:35 LVp 118/3, 11 10:02:39 AOp 126/64 (91) 10:02:44 Signed By Nico Hook MD On 09/19/2020 10:19:56 AM Nico Hook MD
== END 2020-09-19 12:00 | disposition home or self-care (01) ==
PROVIDERS: PCP Nurse Practitioner; Referring Provider Internal Medicine Cardiovascular Disease; Visit Provider Internal Medicine Cardiovascular Disease
DX: R07.9 Chest pain, unspecified (principal); R00.8 Other abnormalities of heart beat; I10 Essential (primary) hypertension; C50.311 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 female breast; Z17.0 Estrogen receptor positive status [ER+]; K21.9 Gastro-esophageal reflux disease without esophagitis; E66.9 Obesity, unspecified; Z68.32 Body mass index [BMI] 32.0-32.9, adult; Z90.11 Acquired absence of right breast and nipple; Z79.899 Other long term (current) drug therapy; Z87.891 Personal history of nicotine dependence
CPT/HCPCS: 93458; 99152; 99153; J7040; Q9967; A4216; C1769; C1894

== ENCOUNTER → 2020-09-20 07:52 | Outpatient (CLI) | payer MEDICARE, MEDICAID, SELFPAY ==
[2020-09-09 20:01] VITALS: BMI 31.8
[2020-09-12 20:54] VITALS: BMI 32.4
[2020-09-16 11:11] VITALS: BMI 32.8
--- NOTE | 2020-09-20 08:24 | MRI_ITS ---
STUDY: BILATERAL BREAST MR WITHOUT AND WITH CONTRAST REASON FOR EXAM: Female, 64 years old. rt breast ca, evaluate for lymph node disease in IMN TECHNIQUE: Multi-sequence multi-echo imaging of both breasts was performed with a dedicated breast coil. T1-weighted and T2-weighted images were performed before the administration of contrast. T1-weighted images were also performed after the administration of IV 17 Dotarem without complications. COMPARISON: 04.22.20 Mammogram FINDINGS: RIGHT BREAST: The breast tissue is scattered fibroglandular densities with minimal background enhancement. There is artifact at the level of the 1 oclock position of the right breast correlating to an mack of prior surgery. There is postprocedural architectural distortion and area of scarring. LEFT BREAST: The breast tissue is scattered fibroglandular densities with minimal background enhancement. There are no abnormal enhancing masses or areas of non-mass enhancement in the left breast. There are no enlarged or abnormal lymph nodes. MRI/Breast Bilateral W/O and W IMPRESSION: Right breast post surgical changes. CATEGORY: BIRADS Category 2: Benign. A letter regarding these results will be sent to the patient by the facility within 30 days. Electronically Signed: Willie Love MD at 10:18 EST , Service support ,
[2020-09-20] MEDS: 0.9% Saline Lock 10 ML Syringe IV ×2 (08:45→09:39)
== END ==
PROVIDERS: PCP Nurse Practitioner; Referring Provider Student in an Organized Health Care Education/Training Program; Visit Provider Student in an Organized Health Care Education/Training Program
DX: C50.311 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 female breast (principal)
CPT/HCPCS: 77049; A9575; A4216; C8908

== ENCOUNTER → 2020-09-28 09:42 | Outpatient (CLI) | payer MEDICARE, SELFPAY ==
[2020-05-16 15:57] VITALS: BMI 31.8
[2020-05-31 12:59] VITALS: BMI 31.8
[2020-09-09 20:01] VITALS: BMI 31.8
[2020-09-26 09:01] VITALS: BMI 32.3
--- NOTE | 2020-09-28 09:46 | BD_ITS ---
STUDY: DUAL ENERGY X-RAY ABSORPTIOMETRY / DXA REASON FOR EXAM: Female, 64 years old. 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 COMPARISON: None. FINDINGS: Lumbar Spine (L1-L4): g/cm2 (1.066) / T-score (-0.9) / Z-score (0.7) Findings are suggestive of normal bone density with a low fracture risk. Increased thoracic kyphosis. Left Femur Total: g/cm2 (0.824) / T-score (-1.5) / Z-score (-0.2) Left Femoral Neck: g/cm2 (0.879) / T-score (-1.1) / Z-score (0.4) Right Femur Total: g/cm2 (0.800) / T-score (-1.7) / Z-score (-0.4) Right Femoral Neck: g/cm2 (0.808) / T-score (-1.7) / Z-score (-0.2) BD/Dexa Bone Density Study IMPRESSION: The patient is considered osteopenic as outlined below according to World Ed Organization (WHO) criteria with a moderate fracture risk. Reference Information: The T-score is the number of standard deviations above or below the standard which is normal for young adults at their peak bone mineral density. The World Health Organization (WHO) interprets the T-scores as follows: Above -1 Normal bone density Between -1 and -2.5 Osteopenia Equal to / or below -2.5 Osteoporosis As a practical clinical guideline, osteopenia may be graded as follows: Mild -1 through -1.5 Moderate -1.6 through -2.0 Severe -2.1 through -2.4 The Z-score is the number of standard deviations above or below age-matched controls. A Z-score of less than -1.5 would be considered abnormal. References: 1. NIH Osteoporosis and Related Bone Diseases www osteo.org 2. International Society for Clinical Densitometry www iscd.org 3. National Osteoporosis Foundation www nof.org Electronically Signed: Chandu Dean MD at 12:49 EST , Service support ,
== END ==
PROVIDERS: PCP Nurse Practitioner; Referring Provider Internal Medicine Hematology & Oncology; Visit Provider Internal Medicine Hematology & Oncology
DX: Z13.820 Encounter for screening for osteoporosis (principal); Z79.811 Long term (current) use of aromatase inhibitors
CPT/HCPCS: 77080; 77412

== ENCOUNTER → 2020-12-29 07:43 | Outpatient (CLI) | payer MEDICARE, MEDICAID, SELFPAY ==
[2020-09-09 20:01] VITALS: BMI 31.8
[2020-11-23 09:48] VITALS: BMI 33.1
--- NOTE | 2020-12-29 07:45 | ECHODONC_ITS ---
Reason For Study: Cardiomyopathy Procedure This was a 2D Doppler, Color Flow transthoracic echocardiogram. Myocardial strain analysis was performed in this exam to aid in the assessment of cardiac function. Exam performed in department. Left Ventricle Normal LV size. Left ventricular systolic function is normal. The estimated ejection fraction is 55 %. No regional wall motion abnormalities noted. Right Ventricle Normal RV size. Normal systolic function. Atria Normal left atrium. Normal right atrium. Mitral Valve Normal mitral valve. Mild (1+) eccentric mitral valve insufficiency. Tricuspid Valve Normal tricuspid valve. Mild tricuspid valve insufficiency. Aortic Valve Normal aortic valve. Trisinus/trileaflet aortic valve. Pulmonic Valve Normal pulmonic valve. Great Vessels Normal aortic root. The pulmonary artery is normal size. Normal inferior vena cava. Pericardium/Pleural No pericardial effusion. MMode/2D Measurements & Calculations LVIDd: 4.8 cm IVSd: 1.1 cm Ao root diam: 3.4 cm LVIDs: 2.9 cm LVPWd: 0.92 cm RVDd: 3.1 cm FS: 39.5 % LAV(MOD-bp): 58.5 ml EDV(MOD-sp4): 92.3 ml EDV(MOD-sp2): 63.9 ml LAV(MOD-bp) Indexed: 31.7 ml/m2 ESV(MOD-sp4): 41.7 ml ESV(MOD-sp2): 34.6 ml LAV(MOD-sp2): 49.5 ml EF(MOD-sp4): 54.8 % EF(MOD-sp2): 46.0 % LAV(MOD-sp4): 53.1 ml SV(MOD-sp4): 50.6 ml SV(MOD-sp2): 29.4 ml LA A4 area: 18.7 cm2 LA dimension(2D): 3.6 cm RA A4 area: 13.1 cm2 Doppler Measurements & Calculations MV E max evelio: 57.4 cm/sec Lat Peak E' Evelio: 7.8 cm/sec Med Peak E' Evelio: 5.4 cm/sec MV A max evelio: 68.4 cm/sec E/E' lat: 7.3 E/E' med: 10.6 MV E/A: 0.84 Ao V2 max: 132.5 cm/sec LV V1 max: 90.1 cm/sec PA V2 max: 98.0 cm/sec Ao max P.0 mmHg LV V1 max P.3 mmHg TR max evelio: 242.0 cm/sec TR max P.2 mmHg ECHO/ONC Echo Complete Interpretation Summary Normal LV size. Left ventricular systolic function is normal. The estimated ejection fraction is 55 %. The global longitudinal strain is normal. The global longitudinal strain = -17. 5 % (normal). Ordering Physician: Nico Hook Referring Physician: Loan Dias Performed By: Caridad Wilkins RDCS
== END ==
PROVIDERS: PCP Nurse Practitioner; Referring Provider Internal Medicine Cardiovascular Disease; Visit Provider Internal Medicine Cardiovascular Disease
DX: I49.49 Other premature depolarization (principal); I49.8 Other specified cardiac arrhythmias; I10 Essential (primary) hypertension; C50.311 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 female breast; Z17.0 Estrogen receptor positive status [ER+]; R07.9 Chest pain, unspecified; R06.02 Shortness of breath
CPT/HCPCS: 93306; 93356

== ENCOUNTER → 2021-02-15 13:44 | Outpatient (CLI) | payer MEDICARE, MEDICAID, SELFPAY ==
[2020-09-09 20:01] VITALS: BMI 31.8
[2021-02-15 09:26] VITALS: BMI 34.7
--- NOTE | 2021-02-15 13:47 | VDLE_ITS ---
Reason For Study: pain RIGHT GSV is normal. CFV is compressible, spontaneous, phasic, competent and demonstrates normal augmentation. FV is compressible, spontaneous, phasic, competent and demonstrates normal augmentation. POP V is compressible, spontaneous, phasic, competent and demonstrates normal augmentation. T/P Trunk is compressible. PTV is compressible. RT PerV is compressible. Procedure This is a venous duplex using B-mode, color flow and spectral Doppler. Exam performed in department. A preliminary report was called and/or faxed to Verónica Lopez @ [phone]. VL/Venous Duplex US, Unilateral Interpretation Summary There is no evidence of right lower extremity deep vein thrombosis. Right great saphenous vein appears patent and compressible segmentally. Ordering Physician: Verónica Lopez Referring Physician: Loan Dias Performed By: Denise Mueller RVT, RDCS and Student
== END ==
PROVIDERS: PCP Nurse Practitioner; Referring Provider Nurse Practitioner Family; Visit Provider Nurse Practitioner Family
DX: M79.604 Pain in right leg (principal)
CPT/HCPCS: 93971

== ENCOUNTER → 2021-02-27 13:23 | Outpatient (CLI) | payer MEDICARE, MEDICAID, SELFPAY ==
[2020-09-09 20:01] VITALS: BMI 31.8
[2020-11-23 09:48] VITALS: BMI 33.1
[2021-02-15 10:24] VITALS: BMI 34.7
--- NOTE | 2021-02-27 13:24 | MRI_ITS ---
STUDY: BILATERAL BREAST MR WITHOUT AND WITH CONTRAST REASON FOR EXAM: Female, 65 years old. Treated right breast cancer. Evaluate for internal mammary adenopathy. TECHNIQUE: Multi-sequence multi-echo imaging of both breasts was performed with a dedicated breast coil. T1-weighted and T2-weighted images were performed before the administration of contrast. T1-weighted images were also performed after the administration of 17 ml of Dotarem contrast intravenously without complications. COMPARISON: Prior breast MRI dated 09/20/2020. FINDINGS: RIGHT BREAST: The breast tissue is scattered fibroglandular densities with minimal background enhancement. Postsurgical changes of the medial aspect of the right breast with metallic artifact are noted. Some deformity and skin thickening is present. There are no abnormal enhancing masses or areas of non-mass enhancement in the right breast. LEFT BREAST: The breast tissue is scattered fibroglandular densities with minimal background enhancement. There are no abnormal enhancing masses or areas of non-mass enhancement in the left breast. There are no enlarged or abnormal lymph nodes. Specifically, no internal mammary lymph nodes are identified. There is no abnormality in the visualized regions of the chest or liver. MRI/Breast Bilateral W/O and W IMPRESSION: Postsurgical changes of the right breast. No other abnormality present. CATEGORY: BIRADS Category 2: Benign. A letter regarding these results will be sent to the patient by the facility within 30 days. Electronically Signed: Estevan Bean MD at 10:04 EDT , Service support ,
[2021-02-27] MEDS: 0.9% Saline Lock 10 ML Syringe IV (14:30)
== END ==
PROVIDERS: PCP Nurse Practitioner; Referring Provider Student in an Organized Health Care Education/Training Program; Visit Provider Student in an Organized Health Care Education/Training Program
DX: C50.311 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 female breast (principal)
CPT/HCPCS: 77049; A9575; C8908

== ENCOUNTER → 2021-03-27 13:19 | Outpatient (CLI) | payer MEDICARE, MEDICAID, SELFPAY ==
[2020-09-09 20:01] VITALS: BMI 31.8
[2021-03-08 10:11] VITALS: BMI 35.0
--- NOTE | 2021-03-27 13:25 | ECHOLONC_ITS ---
Reason For Study: HIGH RISK MEDS Procedure This was a limited 2D transthoracic echocardiogram. Exam performed in department. Left Ventricle Normal LV size. Left ventricular systolic function is normal. The estimated ejection fraction is 65 %. The global longitudinal strain = -17% (borderline). Unable to assess diastolic dysfunction. No regional wall motion abnormalities noted. Right Ventricle Normal RV size. Normal systolic function. Atria Normal left atrium. Normal right atrium. No doppler evidence for ASD. Mitral Valve There is no mitral annular calcification. Normal mitral valve. Tricuspid Valve Normal tricuspid valve. Mild tricuspid valve insufficiency. Right ventricular systolic pressure estimated to be 22 mmHg. Aortic Valve Trisinus/trileaflet aortic valve. Normal aortic valve. Pulmonic Valve The pulmonic valve is not well visualized. Great Vessels Normal sized aortic root. Pericardium/Pleural No pericardial effusion. MMode/2D Measurements & Calculations LVIDd: 5.0 cm IVSd: 0.88 cm Ao root diam: 3.6 cm LVIDs: 3.4 cm LVPWd: 0.90 cm FS: 32.4 % LAV(MOD-bp): 33.4 ml LA A4 area: 14.6 cm2 LA dimension(2D): 3.7 cm LAV(MOD-bp) Indexed: 17.7 ml/m2 LAV(MOD-sp2): 32.3 ml LAV(MOD-sp4): 32.9 ml RA A4 area: 11.8 cm2 Doppler Measurements & Calculations Lat Peak E' Evelio: 7.1 cm/sec Med Peak E' Evelio: 5.6 cm/sec TR max evelio: 216.5 cm/sec TR max P.7 mmHg ECHO/ONC Echo, Limited Study Interpretation Summary Left ventricular systolic function is normal. The estimated ejection fraction is 65 %. The global longitudinal strain = -17% (borderline). Mild tricuspid valve insufficiency. Right ventricular systolic pressure estimated to be 22 mmHg. Unable to assess diastolic dysfunction. Ordering Physician: Antonia Escalante Referring Physician: AWAIS RICK Performed By: Justyna Cornejo, RDCS, RVT
== END ==
PROVIDERS: PCP Nurse Practitioner; Referring Provider Internal Medicine Hematology & Oncology; Visit Provider Internal Medicine Hematology & Oncology
DX: Z79.899 Other long term (current) drug therapy (principal)
CPT/HCPCS: 93308; 93356

== ENCOUNTER 2021-04-08 09:06 | Emergency (ER) | payer MEDICARE, MEDICAID, SELFPAY ==
[2020-09-09 20:01] VITALS: BMI 31.8
[2021-04-08 09:09] VITALS: BP 144/84; PULSE 92; RESP 17; TEMP 36.8; O2SAT 96; BMI 37.6
--- NOTE | 2021-04-08 09:24 | RAD_ITS ---
STUDY: X-RAY CHEST REASON FOR EXAM: Female, 65 years old. Cough TECHNIQUE: Single AP portable view of the chest. COMPARISON: September 07, 2020 FINDINGS: Port on the left extends to the superior vena cava. There are monitoring devices. The lungs are clear and expanded. There is no demonstrated pleural abnormality. There is mild cardiac enlargement. Normal mediastinum and sydni. Normal visualized pulmonary arteries. Normal visualized aortic arch and descending thoracic aorta. Normal visualized thoracic spine. Normal visualized ribs, clavicles, and shoulders. There is no demonstrated abnormality of the visualized soft tissue structures of the upper abdomen. RAD/Chest 1 View (Portable) IMPRESSION: No focal infiltrate or edema. Electronically Signed: Rob Alvarado MD at 12:31 EDT , Service support ,
--- NOTE | 2021-04-08 09:24 | EKG12_ITS ---
Test Reason : FATIGUE Blood Pressure : / mmHG Vent. Rate : 086 BPM Atrial Rate : 086 BPM P-R Int : 146 ms QRS Dur : 092 ms QT Int : 404 ms P-R-T Axes : 050 -32 038 degrees QTc Int : 483 ms Normal sinus rhythm Left axis deviation Poor R wave progression Abnormal ECG Confirmed by DEJA LEIVA, JU ([id number]), index editor RICHARD HINSON ([id number]) on 04/12/2021 9:07:16 AM Referred By: TAMARA Confirmed By:JU SHORT MD
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
[2021-04-08 10:27] LABS: Absolute Lymphocyte Count 0.35 X10^3/uL (0.83-4.51); Absolute Neutrophil Count 3.8 X10^3/uL (2.0-7.7); Hematocrit 39.6 % (37-47); Hemoglobin 13.1 g/dL (12.0-15.0); Lymphocyte # 0.35 X10^3/ul (0.83-4.51); Lymphocyte % 7.7 % (19-41); Mean Corp Hgb Conc 33.1 g/dL (32-36); Mean Corpuscular Hgb 30.7 pg (27.0-32.0); Mean Corpuscular Volume 92.7 fL (81-99); Mean Platelet Vol. 9.3 fl (6.2-12.0); Monocyte# 0.41 X10^3/uL; Monocyte% 9.1 % (0-10); NRBC Flagged by Analyzer 0 % (0-5); Neutrophil # 3.75 X10^3/uL (2.7-7.7); Neutrophil % 82.8 % (47-70); POSITIVE DIFFERENTIAL YES; Platelet Count 184 K/mm3 (150-450); RBC Distribution Width CV 12.9 % (11.6-14.6); RBC Distribution Width SD 44.1 fl (35.1-43.9); Red Blood Count 4.27 M/mm3 (4.2-5.4); White Blood Count 4.5 K/mm3 (4.4-11.0)
[2021-04-08] MEDS: dexAMETHasone 10 MG/ML Vial 6 MG IV (10:30)
[2021-04-08 10:40] LABS: AST(SGOT) 17 U/L (15-37); Alanine Aminotransfer ALT/SGPT 25 U/L (13-56); Albumin, Serum 3.5 g/dL (3.2-5.0); Alkaline Phosphatase 96 U/L (45-117); Anion Gap 8 (5-15); BUN 14 mg/dL (7-18); BUN/Creat Ratio 15.5 RATIO (10-20); Calcium,Total 8.4 mg/dL (8.5-10.1); Chloride 104 mmol/L (98-107); EST Glomerular Filtration Rate 66 mL/min (>60); Est Glom Filt Rate - Afr Amer 80 mL/min (>60); Globulin 3.4 g/dL (2.2-4.2); Glucose 82 mg/dL (74-106); Protein, Total 6.9 g/dL (6.4-8.2); Sodium Level 137 mmol/L (136-145)
[2021-04-08 10:41] LABS: D-Dimer Quantitative (DVT/PE) 0.29 FEU/ug/m (0.27-0.49)
[2021-04-08 10:42] VITALS: BP 139/88; PULSE 83; RESP 16; TEMP 36.8; O2SAT 97
[2021-04-08 10:47] LABS: Lactic Acid 0.9 mmol/L (0.4-1.9)
[2021-04-08 10:54] LABS: Differential Indicated SCAN CRITERIA MET
[2021-04-08 10:55] LABS: Differential Comment SCANNED
[2021-04-08 12:56] VITALS: BP 117/70; PULSE 88; RESP 17; O2SAT 99
== END 2021-04-08 13:51 | disposition home or self-care (01) ==
PROVIDERS: Emergency Provider Emergency Medicine; PCP Nurse Practitioner
DX: U07.1 COVID-19 (principal); I10 Essential (primary) hypertension; K21.00 Gastro-esophageal reflux disease with esophagitis, without bleeding; E66.9 Obesity, unspecified; Z68.37 Body mass index [BMI] 37.0-37.9, adult; Z79.899 Other long term (current) drug therapy
CPT/HCPCS: 36591; 71045; 80053; 83605; 85025; 85379; 87040; 87426; 93005; 96374; 99285; A4216

== ENCOUNTER 2021-04-10 16:50 | Outpatient (CLI) | payer MEDICARE, MEDICAID, SELFPAY ==
[2020-09-09 20:01] VITALS: BMI 31.8
[2021-04-10] MEDS: 0.9% Saline Lock 10 ML Syringe IV ×2 (17:16→18:40)
[2021-04-10 17:18] VITALS: BP 135/84; PULSE 90; RESP 20; TEMP 37.1; O2SAT 95; BMI 34.0
[2021-04-10 17:55] VITALS: BP 135/73; PULSE 80; RESP 20; TEMP 36.8; O2SAT 93
[2021-04-10 18:55] VITALS: BP 131/71; PULSE 72; RESP 20; TEMP 36.7; O2SAT 92
== END 2021-04-10 19:05 | disposition home or self-care (01) ==
LOC: ICUOUT 16:51 → MS2 16:51
PROVIDERS: PCP Nurse Practitioner; Referring Provider Nurse Practitioner Acute Care; Visit Provider Nurse Practitioner Acute Care
DX: U07.1 COVID-19 (principal)
CPT/HCPCS: J7050; M0243; A4216; Q0244

== ENCOUNTER → 2021-06-23 07:36 | Outpatient (CLI) | payer MEDICARE, MEDICAID, SELFPAY ==
[2021-05-04 20:04] VITALS: BMI 31.8
[2021-06-23] MEDS: 0.9% Saline Lock 10 ML Syringe IV (08:15)
[2021-06-23 08:16] LABS: CREATININE FINGERSTICK < 0.6 mg/dL (0.55-1.02); EGFR FINGERSTICK > 60.0000 mL/min (>60)
--- NOTE | 2021-06-23 08:20 | CT_ITS ---
STUDY: CT CHEST WITH CONTRAST REASON FOR EXAM: Female, 65 years old. F/U ENLARGED LN AND RIGHT BREAST CANCER RADIATION DOSAGE (If Supplied By Facility): CTDIvol = ( 11.49 ) mGy, DLP = ( 450.43 ) mGycm TECHNIQUE: Transaxial imaging was performed following intravenous administration of IV 100mL Isovue-370. Multiplanar coronal and sagittal images were reformatted. Individualized dose optimization techniques were used for this CT. COMPARISON: Comparison is made with a prior examination in 06/07/2020. FINDINGS: A left-sided alexia catheter is seen with the tip in the superior vena cava. The patient is status post right lumpectomy with postoperative changes. Thickening of the skin of the right breast. Surgical clips are seen in the right axillary region. Stable small benign appearing bilateral axillary lymph nodes. Mild degree of emphysematous changes. No focal consolidation. No mass lesion is seen. Minimal linear scarring in the anterior aspect of the right lower lobe as well as at the lung bases. There is no demonstrated pleural abnormality. Normal heart and pericardium. There are multiple small lymph nodes within the mediastinum, which are normal in size and morphology most compatible with reactive lymph hyperplasia. Normal hilar regions. Normal enhanced pulmonary arteries. Normal aorta arch and descending thoracic aorta. There are multi-level degenerative changes of the thoracic spine. Stable multiple small cysts in the liver. CT/Chest WITH Contrast IMPRESSION: Stable examination. Electronically Signed: Chandu Dean MD at 14:55 EDT , Service support ,
== END ==
PROVIDERS: PCP Nurse Practitioner; Referring Provider Internal Medicine Hematology & Oncology; Visit Provider Internal Medicine Hematology & Oncology
DX: C50.311 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 female breast (principal)
CPT/HCPCS: 71260; Q9967; A4216

== ENCOUNTER 2021-07-20 10:48 | Emergency (ER) | payer MEDICARE, MEDICAID, SELFPAY ==
[2021-06-27 09:32] VITALS: BMI 31.8
[2021-07-20 10:48] VITALS: BP 152/102; PULSE 93; RESP 18; TEMP 36.1; O2SAT 100; BMI 33.8
--- NOTE | 2021-07-20 12:34 | CT_ITS ---
STUDY: CT LUMBAR SPINE WITHOUT CONTRAST REASON FOR EXAM: Female, 65 years old. Back pain. Right-sided sciatica. RADIATION DOSAGE (If Supplied By Facility): CTDIvol = ( 27.29 ) mGy, DLP = ( 854.80 ) mGycm TECHNIQUE: The patient was scanned in a multi detector CT scanner. High resolution transaxial imaging was performed. Images were obtained from L1 to S1 vertebra. Sagittal and coronal images were reconstructed. Individualized dose optimization techniques were used for this CT. COMPARISON: None FINDINGS: Normal lumbar lordosis. There is no substantial scoliosis. Normal vertebrae of the lumbar spine. L1-2: Normal endplates. Normal disc height and morphology. Normal bilateral facet joints. Normal central canal and bilateral lateral recesses. Normal bilateral intervertebral neural foramina. L2-3: Normal endplates. Normal disc height and morphology. Normal bilateral facet joints. Normal central canal and bilateral lateral recesses. Normal bilateral intervertebral neural foramina. L3-4: Normal endplates. Normal disc height and morphology. Normal bilateral facet joints. Normal central canal and bilateral lateral recesses. Normal bilateral intervertebral neural foramina. L4-5: Minimal anterior listhesis of L4 on L5 secondary to facet joint osteoarthritis and hypertrophy. Moderate degree of bilateral neural foraminal stenosis as well as a mild degree of central canal stenosis due to diffuse posterior disc bulge and hypertrophy of the ligamentum flavum. L5-S1: Normal endplates. Normal disc height and morphology. Normal bilateral facet joints. Normal central canal and bilateral lateral recesses. Normal bilateral intervertebral neural foramina. Normal visualized paraspinous soft tissue structures. CT/Spine Lumbar without Contrast IMPRESSION: Central and bilateral neural foraminal stenosis at the L4-L5 level caused by combination of a mild degree of anterior listhesis of L4 on L5 as well as hypertrophy of the facet joints and ligamentum flavum. Electronically Signed: Chandu Dean MD at 13:48 EST , Service support ,
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
[2021-07-20] MEDS: Morphine 4 MG/ML Syringe IV (13:06)
[2021-07-20] MEDS: Lidocaine 5% Patch 1 PATCH TOPICAL (13:09)
[2021-07-20 13:27] LABS: Absolute Lymphocyte Count 0.73 X10^3/uL (0.83-4.51); Absolute Neutrophil Count 6.2 X10^3/uL (2.0-7.7); Basophil# 0.05 X10^3/uL; Basophil% 0.7 % (0-1); Eosinophil# 0.01 X10^3/uL; Eosinophils% 0.1 % (0-5); Hematocrit 45.5 % (37-47); Hemoglobin 14.9 g/dL (12.0-15.0); Lymphocyte # 0.73 X10^3/ul (0.83-4.51); Lymphocyte % 10.1 % (19-41); Mean Corp Hgb Conc 32.7 g/dL (32-36); Mean Corpuscular Hgb 29.8 pg (27.0-32.0); Mean Platelet Vol. 9.4 fl (6.2-12.0); Monocyte# 0.16 X10^3/uL; Monocyte% 2.2 % (0-10); NRBC Flagged by Analyzer 0 % (0-5); Neutrophil # 6.23 X10^3/uL (2.7-7.7); Neutrophil % 86.5 % (47-70); Platelet Count 336 K/mm3 (150-450); RBC Distribution Width SD 43.5 fl (35.1-43.9); White Blood Count 7.2 K/mm3 (4.4-11.0)
[2021-07-20 13:44] LABS: ALB/GLOB Ratio 1.2 RATIO (0.9-2.4); AST(SGOT) 23 U/L (15-37); Alanine Aminotransfer ALT/SGPT 38 U/L (13-56); Albumin, Serum 4.2 g/dL (3.2-5.0); Alkaline Phosphatase 110 U/L (45-117); Anion Gap 8 (5-15); BUN 17 mg/dL (7-18); BUN/Creat Ratio 20.1 RATIO (10-20); Calcium,Total 9.8 mg/dL (8.5-10.1); Chloride 106 mmol/L (98-107); Creatinine, Serum 0.84 mg/dL (0.55-1.02); EST Glomerular Filtration Rate 71 mL/min (>60); Est Glom Filt Rate - Afr Amer 86 mL/min (>60); Estimated Creatinine Clearance 49.71 ml/min; Globulin 3.5 g/dL (2.2-4.2); Glucose 119 mg/dL (74-106); Potassium 4.1 mmol/L (3.5-5.1); Protein, Total 7.7 g/dL (6.4-8.2); Sodium Level 140 mmol/L (136-145)
[2021-07-20 14:15] VITALS: RESP 14
[2021-07-20 14:49] VITALS: BP 143/87; PULSE 86; RESP 16; O2SAT 97
[2021-07-20] MEDS: 0.9% Saline Lock 10 ML Syringe IV (14:58)
== END 2021-07-20 15:02 | disposition home or self-care (01) ==
PROVIDERS: Emergency Provider Emergency Medicine; PCP Nurse Practitioner
DX: M54.31 Sciatica, right side (principal); E66.9 Obesity, unspecified; I10 Essential (primary) hypertension; K21.9 Gastro-esophageal reflux disease without esophagitis; Z79.82 Long term (current) use of aspirin; Z79.899 Other long term (current) drug therapy; Z87.59 Personal history of other complications of pregnancy, childbirth and the puerperium
CPT/HCPCS: 36591; 72131; 80053; 85025; 96374; 96375; 99281; A4216

== ENCOUNTER → 2021-07-26 08:05 | Outpatient (CLI) | payer MEDICARE, MEDICAID, SELFPAY ==
[2021-06-27 09:32] VITALS: BMI 31.8
--- NOTE | 2021-07-26 08:07 | NM_ITS ---
CLINICAL: 65-year-old female with reported history of radiographic abnormalities involving the sacrum, right iliac bone. WHOLE BODY 99m Tc MDP RADIONUCLIDE BONE SCINTIGRAPHY COMPARISON: CT of the lumbar spine report 07/20/2021 FINDINGS: Following the intravenous administration of 24.8 mCi of 99m Tc MDP via the Mediport, whole body bone images reveal: 1. Increased radiopharmaceutical concentration is defined in the patellofemoral compartment of the left knee, left wrist, acromioclavicular compartments of both shoulders, fifth lumbar vertebra posteriorly on the left and right. 2. The remaining skeletal structures are scintigraphically unremarkable with normal-appearing renal images and urinary bladder activity identified. Asymmetric increased radiotracer distribution is defined in the greater trochanteric aspect of the right proximal femur posteriorly consistent with periostitis and/or trochanteric bursitis. NM/Bone Scan Whole Body IMPRESSION: 1. The increase in tracer distribution defined in the left knee, left wrist, bilateral shoulders, fifth lumbar vertebra is most consistent with degenerative arthritis. 2. Meticulous attention paid to the distribution of the sacrum and right iliac bone demonstrate no evidence of abnormal increased tracer uptake on the present examination. No typical scintigraphic evidence of diffuse axial skeletal metastatic disease is identified. Electronically Signed: Jose Rick DO at 12:33 EST Tel , Service support ,
[2021-07-26] MEDS: 0.9% Saline Lock 10 ML Syringe IV (08:29)
--- NOTE | 2021-07-26 12:26 | MRI_ITS ---
STUDY: MR Spine Lumbar W/O Contrast 07/26/2021 4:04 PM REASON FOR EXAM: Female, 65 years old. Back pain OSTEOPOROSIS, , BREAST CA TECHNIQUE: MR Spine Lumbar W/O Contrast Standardized fat and water weighted pulse sequences were obtained. COMPARISON: CT lumbar spine 07/20/2021 FINDINGS: T12-L1: Normal endplates. Normal disc height, hydration and morphology. Normal bilateral facet joints. Normal central canal and bilateral lateral recesses. Normal bilateral intervertebral neural foramina. Normal lumbar lordosis. There is no substantial scoliosis. Normal conus medullaris that terminates at the L1 L1-2: Loss of intervertebral disc height. There is endplate spondylosis of the vertebral body. Normal central canal and intervertebral neuroforamina. There is bilateral facet arthropathy. L2-3: Loss of intervertebral disc height. There is endplate spondylosis of the vertebral body. Normal central canal and intervertebral neuroforamina. There is bilateral facet arthropathy. L3-4: Normal endplates. Loss of intervertebral disc height. There is bilateral ligamentum flavum thickening. Normal bilateral facet joints. Normal central canal and bilateral lateral recesses. Normal bilateral intervertebral neural foramina. L4-5: Loss of intervertebral disc height. There is endplate spondylosis of the vertebral body. Narrowing of the left intervertebral neuroforamina. Compression of the left L4 nerve root. There is bilateral facet arthropathy. There is bilateral ligamentum flavum thickening. Narrowing of the lateral recess. Grade 1 anterolisthesis of L4 on L5. L5-S1: Normal endplates. Normal disc height and morphology. Normal central canal and intervertebral neuroforamina. There is bilateral ligamentum flavum thickening. There is bilateral facet arthropathy. Normal visualized sacral ala. Normal visualized paraspinous soft tissue structures. MRI/Spine Lumbar (Routine) IMPRESSION: Multilevel degenerative changes, as described above. Electronically Signed: Willie Love MD at 16:10 EST , Service support ,
== END ==
PROVIDERS: PCP Nurse Practitioner; Referring Provider Anesthesiology Pain Medicine; Visit Provider Anesthesiology Pain Medicine
DX: M80.08XA Age-related osteoporosis with current pathological fracture, vertebra(e), initial encounter for fracture (principal); C50.919 Malignant neoplasm of unspecified site of unspecified female breast
CPT/HCPCS: 72148; 78306; A9503

== ENCOUNTER → 2021-07-31 21:49 | Outpatient (CLI) | payer MEDICARE, MEDICAID, SELFPAY ==
[2021-06-27 09:32] VITALS: BMI 31.8
[2021-07-31 22:38] LABS: Cholesterol 185 mg/dL (200); High Density Lipoprotein 48 mg/dL; Triglycerides 130 mg/dL; Very Low Density Lipoprotein 26 mg/dL (5-40)
[2021-08-04 16:43] LABS: HPV Reflexed? NOT INDICATED
== END ==
PROVIDERS: PCP Nurse Practitioner; Visit Provider Nurse Practitioner
DX: Z01.419 Encounter for gynecological examination (general) (routine) without abnormal findings (principal); I10 Essential (primary) hypertension
CPT/HCPCS: 80061; 88175; G0145

== ENCOUNTER 2021-08-24 11:42 | Outpatient (CLI) | payer MEDICARE, SELFPAY ==
[2021-06-27 09:32] VITALS: BMI 31.8
--- NOTE | 2021-08-24 11:54 | RAD_ITS ---
STUDY: X-RAY - LUMBAR SPINE REASON FOR EXAM: Female, 65 years old. LOW BACK PAIN M54.59 TECHNIQUE: XR Spine Lumbar 2 or 3 Views COMPARISON: 07.16.21 FINDINGS: Normal lumbar lordosis. There is no substantial scoliosis. There is a grade 1 anterolisthesis of L5 L4 on L5. This measures 3 mm. There is diffuse demineralization with multi-level endplate spondylosis. Normal disc space heights. The soft tissue structures are unremarkable. RAD/Lumbar Spine 2 or 3 Views IMPRESSION: There are no acute findings. There is a grade 1 anterolisthesis of L5 L4 on L5. This measures 3 mm. Electronically Signed: Willie Love MD at 18:35 EST , Service support ,
== END 2021-08-24 23:59 | disposition short-term general hospital (02) ==
LOC: RAD.FUTURE 11:51
PROVIDERS: PCP Nurse Practitioner; Referring Provider Orthopaedic Surgery; Visit Provider Orthopaedic Surgery
DX: M54.59 Other low back pain (principal)
CPT/HCPCS: 72100

== ENCOUNTER 2021-10-26 07:29 | Outpatient (CLI) | payer MEDICARE, MEDICAID, SELFPAY ==
[2021-06-27 09:32] VITALS: BMI 31.8
--- NOTE | 2021-10-26 07:31 | BI_ITS ---
MAMMOGRAPHY - BILATERAL SCREENING REASON FOR EXAM: Female, 66 years old. Routine annual screening examination. PERTINENT HISTORY: Personal history of breast cancer. Prior right lumpectomy with chemotherapy and radiation. TECHNIQUE: Digital bilateral breast doris (3D mammographic acquisition) in the CC and MLO projections. 2-D mediolateral oblique (MLO) and craniocaudad (CC) views of both breasts were obtained. CAD: Full Field Digital Mammography with Computer Added Detection was performed. COMPARISON: Comparison is made with prior outside examination of 04/04/2020. FINDINGS: Breast Composition: There are scattered areas of fibroglandular density. There are no dominant masses or suspicious calcifications. Since prior examination, the previously seen nodular density in the central medial portion of the right breast as been excised. Postsurgical changes are seen. A port is seen in the left axillary region. No other significant abnormalities are identified. BI/SCRN MAMM (CAD)W/DORIS BILAT IMPRESSION: Status post right lumpectomy with postoperative changes. Yearly follow-up mammogram recommended. (A) ASSESSMENT CATEGORY: BIRADS Category 2: Benign. A letter regarding these results will be sent to the patient by the facility within 30 days. Approximately 10% of breast cancers are not detected by mammography. A normal mammogram should not delay biopsy of a clinically suspicious abnormality. [id number] Electronically Signed: Chandu Dean MD at 12:27 EST ,
--- NOTE | 2021-10-26 07:57 | CT_ITS ---
STUDY: CT CHEST WITH CONTRAST REASON FOR EXAM: Female, 66 years old. F/U RIGHT INTERNAL MAMMARY LYMPH NODE RADIATION DOSAGE (If Supplied By Facility): CTDIvol = ( 10.19 ) mGy, DLP = ( 466.86 ) mGycm TECHNIQUE: Transaxial imaging was performed following intravenous administration of IV 100mL [id number]-300. Individualized dose optimization techniques were used for this CT. COMPARISON: 06/23/2021 CT chest FINDINGS: The right breast and right axilla demonstrate surgical clips consistent with previous lumpectomy with parenchyma demonstrating a similar appearance compared to prior CT exam. The lungs are normal. There is no demonstrated pleural abnormality. Normal heart and pericardium. 7 mm minimally scattered paratracheal and aortopulmonary window nodes are present and similar compared to the previous CT exam. Normal hilar regions. Normal enhanced pulmonary arteries. Normal aorta arch and descending thoracic aorta. Normal osseous structures. Similar subcentimeter hypodensity within the right hepatic lobe and peripheral right hepatic lobe 2 cm cyst compared to prior. Subcentimeter scattered hypodensities within the left hepatic lobe are also noted and similar. CT/Chest WITH Contrast IMPRESSION: 1. Similar subcentimeter mediastinal and right axillary nodes compared to prior CT exam with no evidence of new lymphadenopathy. Otherwise no evidence of acute cardiopulmonary process. Recommend continued follow-up imaging to document continued stability given history. 2. Unchanged hypodensities within the liver parenchyma compared to prior. Electronically Signed: Melquiades Lynn DO at 17:28 EST ,
[2021-10-26] MEDS: 0.9% Saline Lock 10 ML Syringe IV (08:23)
== END 2021-10-26 23:59 | disposition home or self-care (01) ==
LOC: OPBI 07:29
PROVIDERS: PCP Nurse Practitioner; Referring Provider Internal Medicine Hematology & Oncology; Visit Provider Internal Medicine Hematology & Oncology
DX: Z12.31 Encounter for screening mammogram for malignant neoplasm of breast (principal); Z85.3 Personal history of malignant neoplasm of breast
CPT/HCPCS: 71260; 77063; 77067; Q9967

== ENCOUNTER → 2022-01-02 | Outpatient (CLI) | payer MEDICARE, MEDICAID, SELFPAY ==
[2021-06-27 09:32] VITALS: BMI 31.8
--- NOTE | 2022-01-02 10:40 | RAD_ITS ---
STUDY: X-RAY - LEFT KNEE REASON FOR EXAM: Female, 66 years old. L knee pain -- left knee only, confirmed over phone with Loan TECHNIQUE: 4 view(s) of the knee. COMPARISON: None. FINDINGS: Normal visualized distal femur. Normal visualized proximal tibia and fibula. Normal proximal tibiofibular articulation. There is mild degenerative arthrosis of the medial femorotibial compartment. There is mild degenerative arthrosis of the lateral femorotibial compartment. There is mild degenerative arthrosis of the patellofemoral articulation. There is a soft tissue prominence in the suprapatellar region suggesting a small volume joint effusion. The soft tissue structures are unremarkable. RAD/Knee 4 or More Views IMPRESSION: Degenerative arthrosis. Electronically Signed: Jose Roland MD at 15:30 EDT ,
== END | disposition home or self-care (01) ==
LOC: RAD 10:03
PROVIDERS: PCP Nurse Practitioner; Visit Provider Nurse Practitioner
DX: M25.562 Pain in left knee (principal)
CPT/HCPCS: 73564

== ENCOUNTER 2022-01-21 10:45 | Emergency (ER) | payer MEDICARE, MEDICAID, SELFPAY ==
[2021-06-27 09:32] VITALS: BMI 31.8
[2022-01-21 10:47] VITALS: BP 179/99; PULSE 95; RESP 18; TEMP 36.4; O2SAT 96; BMI 34.9
--- NOTE | 2022-01-21 11:01 | EKG12_ITS ---
Test Reason : HYPERTENSION Blood Pressure : / mmHG Vent. Rate : 070 BPM Atrial Rate : 070 BPM P-R Int : 154 ms QRS Dur : 086 ms QT Int : 402 ms P-R-T Axes : 035 -42 -01 degrees QTc Int : 434 ms Normal sinus rhythm Left axis deviation Nonspecific ST and T wave abnormality Poor R wave progression Abnormal ECG Confirmed by DEJA LEIVA, JU ([id number]), multimedia editor RICHARD HINSON ([id number]) on 01/25/2022 9:00:42 AM Referred By: SANDIE Confirmed By:JU SHORT MD
--- NOTE | 2022-01-21 11:01 | CT_ITS ---
STUDY: CT BRAIN WITHOUT CONTRAST REASON FOR EXAM: Female, 66 years old. Headache RADIATION DOSAGE (If Supplied By Facility): CTDIvol = ( 44.99 ) mGy, DLP = ( 812.98 ) mGycm TECHNIQUE: Transaxial CT imaging of the brain was performed without administration of intravenous contrast material. Individualized dose optimization techniques were used for this CT. COMPARISON: No relevant priors. FINDINGS: Normal soft tissue structures. Normal calvarium. Normal size ventricles and extra-axial spaces for the patient''s age. Normal white matter tracts of the cerebral hemispheres. Normal basal ganglia and thalami. Normal brainstem. Normal cerebellum. There is no intracranial hemorrhage. There are no findings of an acute ischemic infarction. There is a left maxillary mucosal retention cyst. CT/Brain/Head without Contrast IMPRESSION: Normal unenhanced CT scan of the brain. Electronically Signed: Barbara Krause MD at 12:09 EDT ,
[2022-01-21 11:11] VITALS: BP 165/85; PULSE 82; RESP 16; O2SAT 99
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
[2022-01-21] MEDS: Meclizine HCl 25 MG Tablet PO (11:31)
[2022-01-21 11:32] LABS: Absolute Lymphocyte Count 1.05 X10^3/uL (0.83-4.51); Absolute Neutrophil Count 3.7 X10^3/uL (2.0-7.7); Basophil# 0.05 X10^3/uL; Basophil% 0.9 % (0-1); Eosinophil# 0.11 X10^3/uL; Eosinophils% 2.1 % (0-5); Hematocrit 46.5 % (37-47); Hemoglobin 15.2 g/dL (12.0-15.0); Lymphocyte # 1.05 X10^3/ul (0.83-4.51); Lymphocyte % 19.8 % (19-41); Mean Corp Hgb Conc 32.7 g/dL (32-36); Mean Corpuscular Hgb 30.5 pg (27.0-32.0); Mean Corpuscular Volume 93.2 fL (81-99); Mean Platelet Vol. 9.4 fl (6.2-12.0); Monocyte# 0.41 X10^3/uL; Monocyte% 7.7 % (0-10); NRBC Flagged by Analyzer 0 % (0-5); Neutrophil # 3.67 X10^3/uL (2.7-7.7); Neutrophil % 69.1 % (47-70); Platelet Count 272 K/mm3 (150-450); RBC Distribution Width CV 12.5 % (11.6-14.6); RBC Distribution Width SD 43.1 fl (35.1-43.9); Red Blood Count 4.99 M/mm3 (4.2-5.4); White Blood Count 5.3 K/mm3 (4.4-11.0)
[2022-01-21] MEDS: Acetaminophen 500 MG Tablet 1000 MG PO (11:32)
[2022-01-21] MEDS: proMETHazine 25 MG/ML Syringe 12.5 MG IM (11:32)
--- NOTE | 2022-01-21 11:35 | RAD_ITS ---
STUDY: X-RAY CHEST REASON FOR EXAM: Female, 66 years old. Chest pain TECHNIQUE: Single AP portable view of the chest. COMPARISON: April 08, 2021 chest x-ray FINDINGS: The lungs are clear and expanded. There is no demonstrated pleural abnormality. Normal size heart. Normal mediastinum and sydni. Normal visualized pulmonary arteries. Normal visualized aortic arch and descending thoracic aorta. There are diffuse degenerative changes of the visualized thoracic spine. Normal visualized ribs, clavicles, and shoulders. There is no demonstrated abnormality of the visualized soft tissue structures of the upper abdomen. RAD/Chest 1 View (Portable) IMPRESSION: No demonstrated acute cardiopulmonary process. Electronically Signed: Barbara Krause MD at 11:47 EDT ,
[2022-01-21 11:53] LABS: Anion Gap 6 (5-15); BUN 15 mg/dL (7-18); Calcium,Total 9.6 mg/dL (8.5-10.1); Chloride 111 mmol/L (98-107); EST Glomerular Filtration Rate 59 mL/min (>60); Est Glom Filt Rate - Afr Amer 71 mL/min (>60); Estimated Creatinine Clearance 41.19 ml/min; Glucose 98 mg/dL (74-106); Potassium 3.8 mmol/L (3.5-5.1); Sodium Level 143 mmol/L (136-145); Troponin-I HS (w/2H Reflex) 4 pg/mL (3.0-54.0)
[2022-01-21 13:00] VITALS: BP 167/84; PULSE 74; RESP 21; O2SAT 98
[2022-01-21 13:29] LABS: Reflex Troponin-HS? (from REC) Y
[2022-01-21 14:00] LABS: Troponin-I HS 4 pg/mL (3.0-54.0)
[2022-01-21 14:33] VITALS: BP 168/86
== END 2022-01-21 14:39 | disposition home or self-care (01) ==
PROVIDERS: Emergency Provider Student in an Organized Health Care Education/Training Program; PCP Nurse Practitioner; Visit Provider Student in an Organized Health Care Education/Training Program
DX: I10 Essential (primary) hypertension (principal); R42 Dizziness and giddiness; R51.9 Headache, unspecified; E66.9 Obesity, unspecified; K21.9 Gastro-esophageal reflux disease without esophagitis; Z68.34 Body mass index [BMI] 34.0-34.9, adult; Z79.899 Other long term (current) drug therapy; Z86.16 Personal history of COVID-19
CPT/HCPCS: 70450; 71045; 80048; 84484; 85025; 93005; 96372; 99283; A4216

== ENCOUNTER 2022-05-21 07:34 | Day surgery (SDC) | payer MEDICARE, MEDICAID, SELFPAY ==
[2022-01-25 19:55] VITALS: BMI 31.8
[2022-05-21] VITALS (7 sets, daily range): BP systolic 114–138; BP diastolic 77–89; PULSE 67–84; RESP 16; TEMP 36.4–36.8; O2SAT 98–100; BMI 35.6
[2022-05-21] MEDS: Lactated Ringers 1,000 ML 15 ML IV (07:59)
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
--- NOTE | 2022-05-21 09:00 | COLBX_PTH ---
PATIENT: BO JACOB LOC: EN U#:[id number] AGE/SX: 66/F ROOM: RE05/21/[address]: Dr. Dia Tobin MD : 1955 BED: DIS: 05/21/2022 SPEC #: [id number] RECD: 05/21/22 13:35 STATUS: ISRA[place] RESarah #: [id number] TAQUERIA: 05/21/22 09:[address]: Dia Tobin DEPT: SURGICAL PATHOLOGY RECD BY: Eli Rhodes ENTERED: 05/21/22 13:36 SP TYPE: COLON BX OTHR DR: Loan Dias, LOCOMOTIVE LUBRICATING SYSTEMS CLERK-C Tissues: A - Cecum, NOS B - Ascending colon Procedures: Surgery Specimen Level IV HEADER OPERATION: Colonoscopy ? open access (MAC) PRE-OP DIAGNOSIS: Screening TISSUE SUBMITTED: A ? Cecum polyp, B ? Proximal ascending colon polyp (x2) MICROSCOPIC DIAGNOSIS A. Cecum polyp, biopsy: Tubular adenoma. B. Proximal ascending colon polyp x2, biopsy: Fragments of tubular adenoma. PHILLIP:faye 05/22/2022 MICROSCOPIC DESCRIPTION Slides are reviewed. GROSS DESCRIPTION A - Received in fixative is one container labeled with the patient's name and designated cecum polyp. The specimen consists of one irregular fragment of light soto soft tissue that measures 0.6 x 0.2 x 0.1 cm. The specimen is totally submitted in one cassette. B - Received in fixative is one container labeled with the patient's name and designated proximal ascending colon polyp x2. The specimen consists of multiple irregular fragments of light soto soft tissue that in aggregate measure 0.6 x 0.3 x 0.1 cm. The specimen is totally submitted in one cassette. / PHILLIP:faye 05/21/2022 TC:1 CPT: 27335 x2
--- NOTE | 2022-05-21 09:17 | OP.COLON_ITS ---
Patient Name: Juliet Monteiro Procedure Date: 05/21/2022 8:38 AM Date of : 1955 Age: 66 Procedure: Colonoscopy Indications: Screening for colorectal malignant neoplasm Providers: Dia Tobin MD Medicines: Monitored Anesthesia Care Patient Profile: This is a 66 year old female. Last Colonoscopy: none. The patient's first colonoscopy is today. Complications: No immediate complications. Procedure: Pre-Anesthesia Assessment: - Prior to the procedure, a History and Physical was performed, and patient medications and allergies were reviewed. The patient's tolerance of previous anesthesia was also reviewed. The risks and benefits of the procedure and the sedation options and risks were discussed with the patient. All questions were answered, and informed consent was obtained. Prior Anticoagulants: The patient has taken aspirin, last dose was 2 days prior to procedure. ASA Grade Assessment: Per anesthesia. After reviewing the risks and benefits, the patient was deemed in satisfactory condition to undergo the procedure. After I obtained informed consent, the scope was passed under direct vision. Throughout the procedure, the patient's blood pressure, pulse, and oxygen saturations were monitored continuously. The pediatric colonoscope was introduced through the anus and advanced to the terminal ileum. The colonoscopy was performed without difficulty. The patient tolerated the procedure well. The quality of the bowel preparation was good. Scope In: 8:46:52 AM Scope Withdrawal Time 0 hours 15 minutes 43 seconds Scope Out: 9:11:36 AM Total Procedure Duration Time 0 hours 24 minutes 44 seconds Findings: Hemorrhoids were found on perianal exam. Non-bleeding external and internal hemorrhoids were found. The hemorrhoids were small and Grade I (internal hemorrhoids that do not prolapse). Three sessile polyps were found in the proximal ascending colon and cecum. The polyps were less than 5 mm in size. These polyps were removed with a cold biopsy forceps. Resection and retrieval were complete. The terminal ileum appeared normal. The exam was otherwise without abnormality. Impression: - Hemorrhoids found on perianal exam. - Non-bleeding external and internal hemorrhoids. - Three less than 5 mm polyps in the proximal ascending colon and in the cecum, removed with a cold biopsy forceps. Resected and retrieved. - The examined portion of the ileum was normal. - The examination was otherwise normal. Recommendation: - Discharge patient to home. - Resume previous diet. - Continue present medications. - Await pathology results. - Repeat colonoscopy in 5 years for surveillance based on pathology results. Procedure Code(s): --- Professional --- 21199, PT, Colonoscopy, flexible; with biopsy, single or multiple Diagnosis Code(s): --- Professional --- Z12.11, Encounter for screening for malignant neoplasm of colon K64.0, First degree hemorrhoids D12.2, Benign neoplasm of ascending colon D12.0, Benign neoplasm of cecum CPT copyright 2017 [employer]. All rights reserved. The codes documented in this report are preliminary and upon telecommunications line mechanic review may be revised to meet current compliance requirements. MD Dia Velasco MD 05/21/2022 9:16:47 AM This report has been signed electronically. Number of Addenda: 0 Note Initiated On: 05/21/2022 8:38 AM
--- NOTE | 2022-05-21 09:18 | OP.CCLET_ITS ---
05/21/2022 Loan Dias NP [facility] [address] [place] [id number] Re : Colonoscopy procedure for Juliet Monteiro Dear Ms. Dias This procedure was performed on Saturday, May 21, 2022. My impressions and recommendations are as follows: Impressions : - Hemorrhoids found on perianal exam. - Non-bleeding external and internal hemorrhoids. - Three less than 5 mm polyps in the proximal ascending colon and in the cecum, removed with a cold biopsy forceps. Resected and retrieved. - The examined portion of the ileum was normal. - The examination was otherwise normal. Recommendations : - Discharge patient to home. - Resume previous diet. - Continue present medications. - Await pathology results. - Repeat colonoscopy in 5 years for surveillance based on pathology results. My findings are described in the full procedure note, which is enclosed. If I can be of further assistance, please feel free to contact me at Doctor phone number(s): , Work: . Sincerely, MD Dia Velasco MD 05/21/2022 9:16:47 AM This report has been signed electronically.
== END 2022-05-21 10:23 | disposition home or self-care (01) ==
LOC: EN 07:35 → AC 07:36
PROVIDERS: PCP Nurse Practitioner; Referring Provider Nurse Practitioner; Visit Provider Surgery
PROC: 0DJD8ZZ Inspection of Lower Intestinal Tract, Via Natural or Artificial Opening Endoscopic (ICD-10-PCS; CPT 45378; principal; 2022-05-21 08:55)
DX: Z12.11 Encounter for screening for malignant neoplasm of colon (principal); D12.0 Benign neoplasm of cecum; D12.2 Benign neoplasm of ascending colon; K64.0 First degree hemorrhoids; I10 Essential (primary) hypertension; K21.9 Gastro-esophageal reflux disease without esophagitis; E66.9 Obesity, unspecified; Z68.35 Body mass index [BMI] 35.0-35.9, adult; Z79.82 Long term (current) use of aspirin; Z79.899 Other long term (current) drug therapy; Z86.16 Personal history of COVID-19
CPT/HCPCS: 45380; 88305; J7120; J2405

== ENCOUNTER → 2022-10-31 | Outpatient (CLI) | payer MEDICARE, MEDICAID, SELFPAY ==
[2022-01-25 19:55] VITALS: BMI 31.8
--- NOTE | 2022-10-31 08:51 | BI_ITS ---
MAMMOGRAPHY - BILATERAL SCREENING 3-D TOMOSYNTHESIS REASON FOR EXAM: Female, 67 years old. Personal history of right lumpectomy PERTINENT HISTORY: Personal history of breast cancer.. TECHNIQUE: 2-D mammograms and 3-D Tomosynthesis of the breast (s) were performed. CAD was performed. COMPARISON: 10/26/2021 FINDINGS: The breast composition is composed of scattered fibroglandular density. Stable architectural distortion and postsurgical changes in the right breast. Scattered benign calcifications are seen. No dense spiculated masses or suspicious microcalcifications are identified. No architectural distortion is identified. There is no skin thickening or retraction. There has been no significant change since the prior study. BI/SCRN MAMM (CAD)W/DORIS BILAT IMPRESSION: No mammographic signs of malignancy. Routine yearly mammograms recommended. ASSESSMENT CATEGORY: BIRADS Category 2: Benign. A letter regarding these results will be sent to the patient by the facility within 30 days. FOLLOW UP RECOMMENDATION: Yearly follow up mammogram recommended. (A) Approximately 10% of breast cancers are not detected by mammography. A normal mammogram should not delay biopsy of a clinically suspicious abnormality. Electronically Signed: Phan Garcia MD at 10:01 EDT ,
--- NOTE | 2022-10-31 08:57 | BD_ITS ---
STUDY: DUAL ENERGY X-RAY ABSORPTIOMETRY / DXA REASON FOR EXAM: Female, 67 years old. SCREENING TECHNIQUE: Bone Mineral Density (BMD) measurements of lumbar spine and bilateral hips were obtained. COMPARISON: Comparison is made with prior study dated September 28, 2020. FINDINGS: Lumbar Spine (L1-L4): g/cm2 (0.959) / T-score (-0.8) / Z-score (1.2) Findings are suggestive of normal bone density with a low fracture risk. Left Femur Total: g/cm2 (0.844) / T-score (-0.8) / Z-score (0.6) Left Femoral Neck: g/cm2 (0.716) / T-score (-1.2) / Z-score (0.5) Right Femur Total: g/cm2 (0.791) / T-score (-1.2) / Z-score (0.2) Right Femoral Neck: g/cm2 (0.714) / T-score (-1.2) / Z-score (0.5) The T-Scores on the most recent prior examination were: Lumbar Spine (L1-L4): There has been improvement of bone density since the previous examination. Left Femur Total: which represents an improvement of 10.6%. Right Femur Total: which represents an improvement of 7%. BD/Dexa Bone Density Study IMPRESSION: The patient is considered osteopenic as outlined below according to World Ed Organization (WHO) criteria with a low fracture risk. There has been improvement of bone density since the previous examination. Reference Information: The T-score is the number of standard deviations above or below the standard which is normal for young adults at their peak bone mineral density. The World Health Organization (WHO) interprets the T-scores as follows: Above -1 Normal bone density Between -1 and -2.5 Osteopenia Equal to / or below -2.5 Osteoporosis As a practical clinical guideline, osteopenia may be graded as follows: Mild -1 through -1.5 Moderate -1.6 through -2.0 Severe -2.1 through -2.4 The Z-score is the number of standard deviations above or below age-matched controls. A Z-score of less than -1.5 would be considered abnormal. References: 1. NIH Osteoporosis and Related Bone Diseases www osteo.org 2. International Society for Clinical Densitometry www iscd.org 3. National Osteoporosis Foundation www nof.org Electronically Signed: Chandu Dean MD at 12:54 EDT ,
== END | disposition home or self-care (01) ==
LOC: OPBI 08:48
PROVIDERS: PCP Nurse Practitioner; Visit Provider Student in an Organized Health Care Education/Training Program
DX: Z12.31 Encounter for screening mammogram for malignant neoplasm of breast (principal); M85.851 Other specified disorders of bone density and structure, right thigh
CPT/HCPCS: 77063; 77067; 77080

== ENCOUNTER → 2023-01-15 | Outpatient (CLI) | payer MEDICARE, MEDICAID, SELFPAY ==
[2022-01-25 19:55] VITALS: BMI 31.8
--- NOTE | 2023-01-15 08:30 | ECHODONC_ITS ---
Version 2 Reason For Study: ANTINEOPLASTIC CHEMO Procedure This was a 2D Doppler, Color Flow transthoracic echocardiogram. Myocardial strain analysis was performed in this exam to aid in the assessment of cardiac function. Exam performed in department. Left Ventricle Normal LV size. Left ventricular systolic function is normal. The estimated ejection fraction is 61 %. Stage 1 diastolic dysfunction. No regional wall motion abnormalities noted. Right Ventricle Normal RV size. Normal systolic function. Atria Normal left atrium. Normal right atrium. Mitral Valve Normal mitral valve. Tricuspid Valve Normal tricuspid valve. Aortic Valve Trisinus/trileaflet aortic valve. Pulmonic Valve Normal pulmonic valve. Great Vessels Normal aortic root. The pulmonary artery is normal size. Inferior vena cava collapse with respiration. Pericardium/Pleural No pericardial effusion. MMode/2D Measurements & Calculations LVIDd: 4.7 cm IVSd: 0.92 cm Ao root diam: 3.2 cm LVIDs: 2.7 cm LVPWd: 1.0 cm RVDd: 2.1 cm FS: 42.3 % LAV(MOD-bp): 37.5 ml LA A4 area: 14.4 cm2 LA dimension(2D): 3.7 cm LAV(MOD-bp) Indexed: 20.1 ml/m2 LAV(MOD-sp2): 33.1 ml LAV(MOD-sp4): 40.7 ml RA A4 area: 10.4 cm2 Time Measurements MV dec time: 0.14 sec Doppler Measurements & Calculations MV E max evelio: 70.9 cm/sec Lat Peak E' Evelio: 11.8 cm/sec Med Peak E' Evelio: 5.7 cm/sec MV A max evelio: 74.4 cm/sec E/E' lat: 6.0 E/E' med: 12.4 MV E/A: 0.95 MV dec slope: 540.5 cm/sec2 Ao V2 max: 126.0 cm/sec LV V1 max: 79.2 cm/sec Ao max P.4 mmHg LV V1 max P.5 mmHg Ao V2 mean: 94.0 cm/sec LV V1 mean P.3 mmHg Ao mean P.8 mmHg LV V1 mean: 53.6 cm/sec Ao V2 VTI: 24.3 cm LV V1 VTI: 16.8 cm AV (velocity ratio): 0.69 PA V2 max: 110.0 cm/sec PA V2 mean: 75.7 cm/sec ECHO/ONC Echo Complete Interpretation Summary Normal LV size. Left ventricular systolic function is normal. The estimated ejection fraction is 61 %. Stage 1 diastolic dysfunction. The global longitudinal strain is borderline abnormal. The global longitudinal strain = -16.9% (abnormal). Ordering Physician: Nico Hook Referring Physician: Loan Dias Performed By: Ervin, Denise, RDCS, RVT
== END | disposition home or self-care (01) ==
LOC: CVS 08:29
PROVIDERS: PCP Nurse Practitioner; Referring Provider Internal Medicine Cardiovascular Disease; Visit Provider Internal Medicine Cardiovascular Disease
DX: I34.0 Nonrheumatic mitral (valve) insufficiency (principal)
CPT/HCPCS: 93306; 93356

== ENCOUNTER → 2023-02-26 | Outpatient (CLI) | payer MEDICARE, MEDICAID, SELFPAY ==
[2022-01-25 19:55] VITALS: BMI 31.8
--- NOTE | 2023-02-26 14:11 | US_ITS ---
STUDY: ULTRASOUND BREAST - LEFT REASON FOR EXAM: Female, 67 years old. Palpable lump left breast. TECHNIQUE: Axial and longitudinal images of the LEFT breast were performed with a high resolution ultrasound transducer. # OF IMAGES: 37 COMPARISON: Comparison is made with prior mammogram done earlier today. FINDINGS: LEFT Breast: The upper outer quadrant of the left breast was examined with ultrasound. No sonographic abnormalities seen. Incidental note is made of a cyst measuring 3 mm x 4 mm x 3 mm at the 9:00 position of the breast at 2 cm from the nipple. US/Breast Limited Unilateral IMPRESSION: 3 mm x 4 mm x 3 mm cyst at the 9:00 position of the breast at 2 cm from the nipple. No sonographic abnormality is seen in the upper outer quadrant of the breasts. ASSESSMENT CATEGORY: BIRADS Category 2: Benign. A letter regarding these results will be sent to the patient by the facility within 30 days. Electronically Signed: Chandu Dean MD at 15:42 EDT ,
--- NOTE | 2023-02-26 14:11 | BI_ITS ---
MAMMOGRAPHY - UNILATERAL DIAGNOSTIC: LEFT BREAST REASON FOR EXAM: Female, 67 years old. Left breast lump. PERTINENT HISTORY: Personal history of breast cancer. Prior right lumpectomy and radiation. TECHNIQUE: Digital unilateral breast aquiles (3D mammographic acquisition) in the CC and MLO projections. 2-D mediolateral oblique (MLO) and craniocaudad (CC) views of both breasts were obtained. CAD: Full Field Digital Mammography with Computer Added Detection was performed. COMPARISON: Comparison is made with prior study dated October 31, 2022. FINDINGS: Breast Composition: There are scattered areas of fibroglandular density. There are no dominant masses or suspicious calcifications. Stable small benign-appearing left axillary lymph nodes. No other significant abnormalities are identified. There has been no significant change since the prior study. BI/DIAG MAMM W/CAD, UNILAT IMPRESSION: Stable unilateral diagnostic mammogram. With the patient''s history of a left lower lung, targeted correlation with ultrasound is recommended. ASSESSMENT CATEGORY: BIRADS Category 0: Incomplete. Need additional imaging evaluation. A letter regarding these results will be sent to the patient by the facility within 30 days. Approximately 10% of breast cancers are not detected by mammography. A normal mammogram should not delay biopsy of a clinically suspicious abnormality. Electronically Signed: Chandu Dean MD at 15:37 EDT ,
== END | disposition home or self-care (01) ==
LOC: OPBI 14:10
PROVIDERS: PCP Nurse Practitioner; Referring Provider Nurse Practitioner Family; Visit Provider Nurse Practitioner Family
DX: C50.311 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 female breast (principal); Z17.0 Estrogen receptor positive status [ER+]; N60.02 Solitary cyst of left breast
CPT/HCPCS: 76642; 77061; 77065; G0279

== ENCOUNTER → 2023-03-14 | Outpatient (CLI) | payer MEDICARE, MEDICAID, SELFPAY ==
[2022-01-25 19:55] VITALS: BMI 31.8
--- NOTE | 2023-03-14 12:22 | MRI_ITS ---
STUDY: BILATERAL BREAST MR WITHOUT AND WITH CONTRAST REASON FOR EXAM: Female, 67 years old. Personal history of breast cancer. Breast pain on the left from the 9:00 position to the nipple. TECHNIQUE: Multi-sequence multi-echo imaging of both breasts was performed with a dedicated breast coil. T1-weighted and T2-weighted images were performed before the administration of contrast. T1-weighted images were also performed after the intravenous administration of 19 mL of Clariscan contrast. COMPARISON: Prior breast MR dated February 2021 and September 2020. Bilateral mammogram dated October 31, 2022. FINDINGS: RIGHT BREAST: The breast tissue is scattered fibroglandular densities with minimal background enhancement. Postsurgical changes of the medial aspect of the right breast with metallic artifact are noted. Some deformity and skin thickening is present. There are no abnormal enhancing masses or areas of non-mass enhancement in the right breast. LEFT BREAST: The breast tissue is scattered fibroglandular densities with minimal background enhancement. There are no abnormal enhancing masses or areas of non-mass enhancement in the left breast. No enlarged or abnormal lymph nodes. No abnormality in the visualized regions of the chest or liver. MRI/Breast Bilateral W/O and W IMPRESSION: Postsurgical changes of the right breast. No other abnormality present. CATEGORY: BIRADS Category 2: Benign. A letter regarding these results will be sent to the patient by the facility within 30 days. Electronically Signed: Estevan Bean MD at 15:49 EDT ,
[2023-03-14 12:51] LABS: CREATININE FINGERSTICK 1.2 mg/dL (0.55-1.02)
== END | disposition home or self-care (01) ==
PROVIDERS: PCP Nurse Practitioner; Referring Provider Surgery; Visit Provider Surgery
DX: C50.911 Malignant neoplasm of unspecified site of right female breast (principal); N63.20 Unspecified lump in the left breast, unspecified quadrant
CPT/HCPCS: 77049; A9575; A4216; C8908

== ENCOUNTER → 2023-07-29 | Outpatient (CLI) | payer MEDICARE, MEDICAID, SELFPAY ==
[2022-01-25 19:55] VITALS: BMI 31.8
[2023-07-29 23:06] LABS: Absolute Lymphocyte Count 2.14 X10^3/uL (0.83-4.51); Absolute Neutrophil Count 4.5 X10^3/uL (2.0-7.7); Basophil# 0.08 X10^3/uL; Eosinophil# 0.18 X10^3/uL; Eosinophils% 2.3 % (0-5); Hematocrit 49.5 % (37-47); Hemoglobin 16.2 g/dL (12.0-15.0); Lymphocyte # 2.14 X10^3/ul (0.83-4.51); Lymphocyte % 27.9 % (19-41); Mean Corp Hgb Conc 32.7 g/dL (32-36); Mean Corpuscular Hgb 30.6 pg (27.0-32.0); Mean Corpuscular Volume 93.6 fL (81-99); Mean Platelet Vol. 9.7 fl (6.2-12.0); Monocyte% 9.1 % (0-10); NRBC Flagged by Analyzer 0 % (0-5); Neutrophil # 4.52 X10^3/uL (2.7-7.7); Neutrophil % 59.2 % (47-70); Platelet Count 361 K/mm3 (150-450); RBC Distribution Width CV 13.2 % (11.6-14.6); RBC Distribution Width SD 45.1 fl (35.1-43.9); Red Blood Count 5.29 M/mm3 (4.2-5.4); White Blood Count 7.7 K/mm3 (4.4-11.0)
[2023-07-29 23:27] LABS: ALB/GLOB Ratio 1.3 RATIO (0.9-2.4); AST(SGOT) 33 U/L (15-37); Alanine Aminotransfer ALT/SGPT 60 U/L (13-56); Albumin, Serum 4.3 g/dL (3.2-5.0); Alkaline Phosphatase 131 U/L (45-117); Anion Gap 7 (5-15); BUN 14 mg/dL (7-18); BUN/Creat Ratio 13.9 RATIO (10-20); Calcium,Total 9.9 mg/dL (8.5-10.1); Chloride 105 mmol/L (98-107); Cholesterol 196 mg/dL (200); Creatinine, Serum 1.01 mg/dL (0.55-1.02); EST Glomerular Filtration Rate 58 mL/min (>60); Est Glom Filt Rate - Afr Amer 70 mL/min (>60); Globulin 3.4 g/dL (2.2-4.2); Glucose 98 mg/dL (74-106); High Density Lipoprotein 52 mg/dL; Potassium 3.8 mmol/L (3.5-5.1); Protein, Total 7.7 g/dL (6.4-8.2); Sodium Level 139 mmol/L (136-145); Thyroid Stim Hormone (TSH) 3.71 uIU/mL (0.358-3.74); Triglycerides 128 mg/dL; Very Low Density Lipoprotein 26 mg/dL (5-40)
== END | disposition home or self-care (01) ==
PROVIDERS: PCP Nurse Practitioner; Visit Provider Nurse Practitioner
DX: I49.8 Other specified cardiac arrhythmias (principal); I10 Essential (primary) hypertension; E78.5 Hyperlipidemia, unspecified
CPT/HCPCS: 80053; 80061; 84443; 85025

== ENCOUNTER → 2023-08-26 | Outpatient (CLI) | payer MEDICARE, MEDICAID, SELFPAY ==
[2022-01-25 19:55] VITALS: BMI 31.8
[2023-08-26 10:26] LABS: Anion Gap 5 (5-15); BUN 27 mg/dL (7-18); BUN/Creat Ratio 23.3 RATIO (10-20); Calcium,Total 9.7 mg/dL (8.5-10.1); Chloride 105 mmol/L (98-107); Creatinine, Serum 1.16 mg/dL (0.55-1.02); EST Glomerular Filtration Rate 49 mL/min (>60); Est Glom Filt Rate - Afr Amer 60 mL/min (>60); Glucose 83 mg/dL (74-106); Potassium 3.8 mmol/L (3.5-5.1); Sodium Level 140 mmol/L (136-145)
== END | disposition home or self-care (01) ==
LOC: LAB 08:57
PROVIDERS: PCP Nurse Practitioner; Visit Provider Physician Assistant Medical
DX: I10 Essential (primary) hypertension (principal)
CPT/HCPCS: 36415; 80048

== ENCOUNTER → 2023-09-20 | Outpatient (CLI) | payer MEDICARE, MEDICAID, SELFPAY ==
[2022-01-25 19:55] VITALS: BMI 31.8
--- NOTE | 2023-09-20 07:18 | MRI_ITS ---
STUDY: MRI LEFT KNEE REASON FOR EXAM: Female, 67 years old. Left knee pain, medial patella x 3 months. No known injury No surgery. History of breast cancer. TECHNIQUE: Standardized fat and water weighted pulse sequences were obtained in all 3 orthogonal planes. COMPARISON: Left knee radiographs dated 09/09/2023. FINDINGS: There is a partial radial tear of the posterior horn of the medial meniscus. There is mild degenerative arthrosis of the medial femorotibial compartment with joint space narrowing, tiny marginal osteophyte formation, and low-grade chondromalacia. Normal medial collateral ligamentous complex (MCL). Normal distal semimembranosus, gracilis and semitendinosus tendons. There is a horizontal tear of the lateral meniscus with a 1.9 cm multiseptated paralabral cyst at the lateral joint line. Normal hyaline cartilage of the lateral femorotibial compartment. There is mild osteoarthritic spur formation of the lateral knee compartment. Normal proximal tibiofibular articulation. Normal lateral collateral ( fibular ) ligament. Normal popliteus tendon. Normal biceps femoris tendon. Normal anterior cruciate ligament (ACL). Normal posterior cruciate ligament (PCL). There is a 1.7 cm septated ganglion cyst located between the ACL and PCL (sagittal T2 series 4 image 13). There is focal chondromalacia along the patellar apex with underlying subchondral marrow edema (axial T2 series 2 images 7-8). Congruent patellofemoral articulation. Normal medial and lateral patellar retinaculum. Normal quadriceps tendon. Normal patellar tendon. Normal Hoffa''s fat pad. There is a tiny joint effusion. There is a tiny popliteal cyst. There is mild prepatellar bursitis, with mild adjacent subcutaneous soft tissue edema. The otherwise visualized osseous structures are unremarkable. MRI/Lower Ext Joint Only (Routine) IMPRESSION: Partial radial tear of the posterior horn of the medial meniscus. Horizontal tear of the lateral meniscus with a 1.9 cm multiseptated paralabral cyst at the lateral joint line. Mild tricompartment degenerative arthrosis. 1.7 cm septated ganglion cyst located between the ACL and PCL. Tiny joint effusion with a tiny popliteal cyst. Mild prepatellar bursitis, with mild adjacent subcutaneous soft tissue edema. Electronically Signed: Hugh Hicks MD at 9:24 EST ,
== END | disposition home or self-care (01) ==
LOC: MRI 07:11
PROVIDERS: PCP Nurse Practitioner; Referring Provider Orthopaedic Surgery; Visit Provider Orthopaedic Surgery
DX: M23.007 Cystic meniscus, unspecified meniscus, left knee (principal); X58.XXXA Exposure to other specified factors, initial encounter
CPT/HCPCS: 73721

== ENCOUNTER → 2023-11-04 | Outpatient (CLI) | payer MEDICARE, MEDICAID, SELFPAY ==
[2022-01-25 19:55] VITALS: BMI 31.8
--- NOTE | 2023-11-04 13:13 | BI_ITS ---
MAMMOGRAPHY - BILATERAL SCREENING REASON FOR EXAM: Female, 68 years old. Routine annual screening examination. PERTINENT HISTORY: Personal history of breast cancer. Prior right lumpectomy and radiation treatment. TECHNIQUE: Digital bilateral breast doris (3D mammographic acquisition) in the CC and MLO projections. 2-D mediolateral oblique (MLO) and craniocaudad (CC) views of both breasts were obtained. CAD: Full Field Digital Mammography with Computer Added Detection was performed. COMPARISON: Comparison is made with prior study dated October 31, 2022 and February 26, 2023. FINDINGS: Breast Composition: The breasts are heterogeneously dense, which may obscure small masses. There are no dominant masses or suspicious calcifications. Once again, the patient is status post lumpectomy in the central medial portion of the right breast with postoperative scarring and breast deformity. Surgical clips are seen in the right axilla. No other significant abnormalities are identified. There has been no significant change since the prior study. BI/SCRN MAMM (CAD)W/DORIS BILAT IMPRESSION: Stable bilateral screening mammogram. Yearly follow-up mammogram recommended. (A) ASSESSMENT CATEGORY: BIRADS Category 2: Benign. A letter regarding these results will be sent to the patient by the facility within 30 days. Approximately 10% of breast cancers are not detected by mammography. A normal mammogram should not delay biopsy of a clinically suspicious abnormality. [id number] Electronically Signed: Chandu Dean MD at 14:51 EDT ,
== END | disposition home or self-care (01) ==
LOC: OPBI 13:13
PROVIDERS: PCP Nurse Practitioner; Referring Provider Internal Medicine Hematology & Oncology; Visit Provider Internal Medicine Hematology & Oncology
DX: Z12.31 Encounter for screening mammogram for malignant neoplasm of breast (principal); Z85.3 Personal history of malignant neoplasm of breast
CPT/HCPCS: 77063; 77067

== ENCOUNTER 2023-12-03 09:07 | Day surgery (SDC) | payer MEDICARE, MEDICAID, SELFPAY ==
[2022-01-25 19:55] VITALS: BMI 31.8
[2023-12-03] VITALS (16 sets, daily range): BP systolic 122–137; BP diastolic 67–88; PULSE 69–97; RESP 16–18; TEMP 36.2–36.9; O2SAT 92–100; BMI 34.3
[2023-12-03] MEDS: Lactated Ringers 1,000 ML 15 ML IV ×2 (09:36→13:09)
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
--- NOTE | 2023-12-03 10:45 | CYST_PTH ---
PATIENT: BO JACOB LOC: [facility] [place] U#:[id number] AGE/SX: 68/F ROOM: RE12/03/[address]: Dr. Raymond Lagos DO : 1955 BED: DIS: 12/03/2023 SPEC #: [id number] RECD: 12/03/23 13:12 STATUS: [place] RESarah #: [id number] TAQUERIA: 12/03/23 10:[address]: Raymond Lagos DEPT: SURGICAL PATHOLOGY RECD BY: Eli Rhodes ENTERED: 12/04/23 08:56 SP TYPE: Cyst OTHR DR: Dr. Ashley Luna MD Tissues: CYST Procedures: Surgery Specimen Level III HEADER OPERATION: Left knee partial medial and lateral meniscectomy, excision PRE-OP DIAGNOSIS: Cyst of anterior horn of lateral meniscus, Lateral meniscus tear, Knee joint cyst, left TISSUE SUBMITTED: Left knee synovial cyst MICROSCOPIC DIAGNOSIS Left knee synovial cyst, excision: Fragments of fibrocartilaginous and reactive synovial tissue. / 12/05/2023 MICROSCOPIC DESCRIPTION Slides are reviewed. GROSS DESCRIPTION Received in fixative is one container labeled with the patient's name and designated Left knee synovial cyst. The specimen consists of multiple irregular fragments of light soto soft tissue that in aggregate measure 2.5 x 0.6 x 0.1 cm. The specimen is totally submitted in one cassette. / 12/04/2023 TC:5 CPT:11071
[2023-12-03] MEDS: Cefazolin 2 GM in 0.9% Normal Saline (100mL Bag) 100 ML IV (10:55)
[2023-12-03] MEDS: Epinephrine (1 mg/ml) 1 MG/ML VIAL (11:11)
[2023-12-03] MEDS: Lidocaine 1%/Epi 1:200 (30ml) 30 ML AMPUL (11:30)
[2023-12-03] MEDS: Bupivacaine 0.5% PF 10 ML VIAL (11:30)
[2023-12-03] MEDS: MethylPREDNISolone Acetate 40 MG/ML Vial (11:30)
--- NOTE | 2023-12-03 11:41 | PCM.OP.BLANK ---
Operative Report Date of Procedure: 12/03/23 Preop diagnosis: Left knee medial lateral meniscus tear synovial cyst lateral knee and intercondylar notch Postoperative diagnosis: Same plus grade III chondromalacia throughout the knee worse in the patella and medial compartment Procedure: Left knee arthroscopy partial medial partial lateral meniscectomy excision of intercondylar synovial cyst Specimen: Synovial cyst Anesthesia: General Estimated blood loss: 5 mL Tourniquet time: 25 minutes 300 mmHg Complications: none Indication for procedure: 68-year-old female patient who has had ongoing knee pain despite conservative treatment as well history of breast cancer who had MRI evidence of intercondylar notch synovial cyst and anterior horn lateral meniscus synovial cyst that at times was very prominent however shrunk immediately preoperatively in addition to medial lateral meniscal tears the patient did wish to proceed with an elective arthroscopic surgery to attempt to alleviate the symptoms. Risk benefits and alternatives of the procedure were reviewed including risk of bleeding infection nerve artery tissue damage need for further surgery continued pain and expected postoperative course. Procedure: The patient was met in the preoperative holding area. The operative extremity was identified by both patient and physician and family and marked. Patient was brought back to the operating room on a wheeled cart and transferred to the operating table in the supine position. Anesthesia was started. A well-padded tourniquet was placed on the operative extremity. A lower extremity leg johnson was secured to the operative extremity. The contralateral extremity was well-padded and the end of the bed was flexed to 90 degrees. The patient was prepped and draped in the usual sterile fashion. A timeout was called to ensure the proper patient, procedure, and extremity were being contemplated. Palpation of the lateral cyst was very minimal at this point and not obvious. 0.5% Marcaine with epinephrine was injected into the planned incisional areas under the skin only. An Esmarch was used to exsanguinate the extremity and the tourniquet was inflated. An 11 blade scalpel was used to make a stab incision in the anterior lateral portal. The arthroscope was inserted into the intercondylar notch and inflow and outflow tubes were attached. Arthroscopic visualization began. The medial compartment was entered. An 18-gauge spinal needle was used to establish the placement for anterior medial portal. An 11 blade scalpel was used to make a stab incision. Blunt probe was inserted followed by a meniscal probe. There was an immediate notice of a degenerative appearance of the medial compartment there was grade III chondromalacia throughout as well as a radial tear of the posterior horn of the medial meniscus that was flipped superiorly this was excised there was also degenerative horizontal tearing in the posterior horn and root with use of arthroscopic shaver and a meniscal biting instrument a partial medial meniscectomy was performed the ACL was found to be intact, however adjacent to it was a soft synovial cyst which was excised and sent for pathology. The lateral compartment was entered there was noted to be horizontal tearing in the anterior horn and body of the lateral meniscus with use of arthroscopic shaver a partial lateral meniscectomy was performed The arthroscope was switched to the medial portal to complete the procedure. The medial and lateral gutters were inspected and were free of loose bodies. The patellofemoral joint was inspected had grade 3 cartilage wear throughout the apex and surrounding areas of the patella. There was good patellar tracking. The knee was thoroughly irrigated and drained. An intra-articular injection with 5 cc 0.5% Marcaine plain and 40 mg of Depo-Medrol was injected intra-articularly. The arthroscope was removed the portals were closed with 3-0 nylon arthroscopic stitches. Followed by Xeroform 4 x 4's ABDs web roll and an Tony wrap. The tourniquet was let down and the drapes were removed. All counts were correct. The patient was brought back to the PACU in stable condition.
--- NOTE | 2023-12-03 11:48 | DCINST_ITS ---
Discharge Instructions Diet Discharge Diet: No restrictions Dressing / Incision Call your doctor if you observe: Shortness of breath and Chest pain Additional Dressing/Incision Instructions:: Ice and elevate next 72 hours .keep dressing on clean and dry for 48 hours then may remove begin showering daily but do not submerge in tub or pool. After shower may apply Band-Aids . Encourage knee range of motion weightbearing as tolerated, use crutches until confident in knee then may discontinue. No strenuous activity. When not ambulating keep iced and elevated next 72 hours. Do not mix pain medication with recreational drugs or alcohol only take as prescribed can be addictive and abusive, call with any questions or concerns. Follow Up Care Please Follow Up With: Raymond Lagos DO When: 2 weeks Test Results: Test results from this visit will be discussed in further detail at your follow- up appointment, if applicable. Discharge Plan Admission Primary Reason for Your Visit: Left knee arthroscopy Attending Provider: Raymond Lagos Primary Care Provider: Ashley Luna Discharge Orders/Prescriptions Prescriptions: New hydrocodone-acetaminophen 5-325 mg tablet 1 - 2 tab PO Q4H PRN (Reason: pain) 5 Days Qty: 30 0RF Continued vitamin E 1,000 unit capsule 1,000 unit PO DAILY Qty: 30 5RF Rx Instructions: take 1 tab PO qd aspirin [Corky Low Dose Aspirin] 81 mg tablet,delayed release (DR/EC) 81 mg PO DAILY hydrochlorothiazide 25 mg tablet 25 mg PO DAILY Qty: 30 11RF eaxassqbujmo-mfhz-wyoso acid 1 EACH tablet 1 ea PO DAILY algeaCal 2 cap PO TID cholecalciferol (vitamin D3) [Vitamin D3] 125 mcg (5,000 unit) tablet 250 mcg PO DAILY zinc 50 mg tablet 50 mg PO DAILY mecobalamin (vitamin B12) 1,000 mcg tablet,disintegrating 1,000 mcg sublingual DAILY Rx Instructions: place tablet under tongue and allow to dissolve for at least30 secs before swallowing exemestane 25 mg tablet 25 mg PO DAILY Qty: 90 1RF losartan 100 mg tablet 100 mg PO QDAY Qty: 90 3RF Referrals / Follow Up: Ashley Luna MD [Primary Care Provider] - Disposition Disposition (needs filled in before D/C Order can be placed): Home, Self Care
== END 2023-12-03 16:06 | disposition home or self-care (01) ==
LOC: SDC 09:08 → AC 09:09
PROVIDERS: PCP Family Medicine; Referring Provider Family Medicine; Visit Provider Orthopaedic Surgery
PROC: (CPT 29870; principal; 2023-12-03 10:25)
DX: S83.282A Other tear of lateral meniscus, current injury, left knee, initial encounter (principal); S83.242A Other tear of medial meniscus, current injury, left knee, initial encounter; M23.042 Cystic meniscus, anterior horn of lateral meniscus, left knee; M25.862 Other specified joint disorders, left knee; M70.42 Prepatellar bursitis, left knee; M17.12 Unilateral primary osteoarthritis, left knee; M94.262 Chondromalacia, left knee; X58.XXXA Exposure to other specified factors, initial encounter; I10 Essential (primary) hypertension; E66.9 Obesity, unspecified; Z68.34 Body mass index [BMI] 34.0-34.9, adult; Z79.82 Long term (current) use of aspirin; Z79.899 Other long term (current) drug therapy; Z85.3 Personal history of malignant neoplasm of breast; Z86.16 Personal history of COVID-19
CPT/HCPCS: 29880; 01400; 88304; J7120; J2405

== ENCOUNTER 2023-12-12 12:25 | Emergency (ER) | payer MEDICARE, MEDICAID, SELFPAY ==
[2022-01-25 19:55] VITALS: BMI 31.8
[2023-12-12 12:25] VITALS: BP 147/87; PULSE 98; RESP 16; TEMP 36.6; O2SAT 99; BMI 34.2
--- NOTE | 2023-12-12 13:01 | EKG12_ITS ---
Test Reason : BACK PAIN/DIZZINESS Blood Pressure : / mmHG Vent. Rate : 074 BPM Atrial Rate : 074 BPM P-R Int : 152 ms QRS Dur : 104 ms QT Int : 414 ms P-R-T Axes : 045 -44 016 degrees QTc Int : 459 ms Normal sinus rhythm Left axis deviation Abnormal ECG Confirmed by SERGIO LEIVA, KIT ([id number]), school photograph editor XIANG FAIR ([id number]) on 12/16/2023 10:30:10 AM Referred By: Confirmed By:SARAI HILL MD
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
[2023-12-12] MEDS: 0.9% Normal Saline (1000mL) 1,000 ML 999 ML IV (13:23)
[2023-12-12] MEDS: Mag Hydrox/Al Hydrox/Simeth 30 ML UDC PO (13:23)
[2023-12-12 13:36] LABS: Absolute Lymphocyte Count 1.24 X10^3/uL (0.83-4.51); Absolute Neutrophil Count 4.8 X10^3/uL (2.0-7.7); Basophil# 0.08 X10^3/uL; Basophil% 1.1 % (0-1); Eosinophil# 0.21 X10^3/uL; Hematocrit 43.8 % (37-47); Hemoglobin 14.8 g/dL (12.0-15.0); Lymphocyte # 1.24 X10^3/ul (0.83-4.51); Lymphocyte % 17.5 % (19-41); Mean Corp Hgb Conc 33.8 g/dL (32-36); Mean Corpuscular Hgb 31.2 pg (27.0-32.0); Mean Corpuscular Volume 92.4 fL (81-99); Mean Platelet Vol. 9.5 fl (6.2-12.0); Monocyte% 9.9 % (0-10); NRBC Flagged by Analyzer 0 % (0-5); Neutrophil # 4.81 X10^3/uL (2.7-7.7); Neutrophil % 68.1 % (47-70); Platelet Count 268 K/mm3 (150-450); RBC Distribution Width CV 12.9 % (11.6-14.6); RBC Distribution Width SD 43.8 fl (35.1-43.9); Red Blood Count 4.74 M/mm3 (4.2-5.4); White Blood Count 7.1 K/mm3 (4.4-11.0)
--- NOTE | 2023-12-12 13:45 | RAD_ITS ---
STUDY: X-RAY CHEST REASON FOR EXAM: Female, 68 years old. Cough TECHNIQUE: Single AP portable view of the chest. COMPARISON: Comparison is made with prior study dated January 22, 2020 FINDINGS: EKG electrodes are seen. Surgical clips are seen in the right axilla. There is hyperinflation of the lungs consistent with chronic obstructive lung disease (COPD). Scattered calcified granulomas. There is no demonstrated pleural abnormality. Normal size heart. Normal mediastinum and sydni. Normal visualized pulmonary arteries. Normal visualized aortic arch and descending thoracic aorta. Normal visualized thoracic spine. Normal visualized ribs, clavicles, and shoulders. There is no demonstrated abnormality of the visualized soft tissue structures of the upper abdomen. RAD/Chest 1 View (Portable) IMPRESSION: Hyperinflation. Electronically Signed: Chandu Dean MD at 14:27 EDT ,
[2023-12-12 13:47] LABS: D-Dimer Quantitative (DVT/PE) 0.38 FEU/ug/m (0.27-0.49)
[2023-12-12 13:53] LABS: Anion Gap 8 (5-15); BUN 26 mg/dL (7-18); BUN/Creat Ratio 26.9 RATIO (10-20); Calcium,Total 9.2 mg/dL (8.5-10.1); Chloride 105 mmol/L (98-107); Creatinine, Serum 0.97 mg/dL (0.55-1.02); EST Glomerular Filtration Rate 61 mL/min (>60); Est Glom Filt Rate - Afr Amer 73 mL/min (>60); Estimated Creatinine Clearance 53.23 ml/min; Glucose 90 mg/dL (74-106); Potassium 3.7 mmol/L (3.5-5.1); Sodium Level 141 mmol/L (136-145); Troponin-I HS 4 pg/mL (3.0-54.0)
[2023-12-12 14:25] VITALS: BP 136/82; PULSE 74; RESP 16; O2SAT 98
[2023-12-12 15:09] VITALS: BP 138/74; PULSE 82; RESP 16; TEMP 36.7; O2SAT 99
== END 2023-12-12 15:10 | disposition home or self-care (01) ==
PROVIDERS: Nurse Practitioner; Emergency Provider Emergency Medicine; PCP Nurse Practitioner; Visit Provider Emergency Medicine
DX: M54.9 Dorsalgia, unspecified (principal); B34.9 Viral infection, unspecified; R05.9 Cough, unspecified; Z86.16 Personal history of COVID-19
CPT/HCPCS: 71045; 80048; 84484; 85025; 85379; 87631; 93005; 96360; 99284; J7030

== ENCOUNTER 2023-12-21 10:25 | Emergency (ER) | payer MEDICARE, MEDICAID, SELFPAY ==
[2022-01-25 19:55] VITALS: BMI 31.8
[2023-12-21 10:27] VITALS: BP 107/85; PULSE 60; RESP 14; TEMP 36.1; O2SAT 97; BMI 33.8
--- NOTE | 2023-12-21 10:37 | VDLE_ITS ---
Reason For Study: Left leg pain RIGHT LEFT CFV is compressible, spontaneous, phasic, GSV is normal. competent and demonstrates normal CFV is compressible, spontaneous, phasic, augmentation. competent, and demonstrates normal Procedure augmentation. This is a venous duplex using B-mode, color FV is compressible, spontaneous, phasic, flow and spectral Doppler. competent and demonstrates normal Exam performed portable in ED. augmentation. A preliminary report was called and/or faxed POP V is compressible, spontaneous, phasic, to Marjan KIDD. competent and demonstrates normal augmentation. T/P Trunk is compressible. PTV is compressible. LT PerV is compressible. VL/Venous Duplex US, Unilateral Interpretation Summary There is no evidence of left lower extremity deep vein thrombosis. Left great s aphenous vein appears patent and compressible segmentally. Normal flow patterns right common femoral vein Ordering Physician: Wu Augustine Referring Physician: Loan Dias Performed By: Annabel Garsia RVT
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
== END 2023-12-21 11:22 | disposition home or self-care (01) ==
LOC: ED 11:17
PROVIDERS: Emergency Provider Emergency Medicine; PCP Nurse Practitioner; Visit Provider Emergency Medicine
DX: M79.662 Pain in left lower leg (principal); I10 Essential (primary) hypertension; R60.9 Edema, unspecified; Z86.16 Personal history of COVID-19
CPT/HCPCS: 93971; 99282

== ENCOUNTER → 2024-03-30 | Outpatient (CLI) | payer MEDICARE, MEDICAID, SELFPAY ==
[2022-01-25 19:55] VITALS: BMI 31.8
--- NOTE | 2024-03-30 08:49 | US_ITS ---
STUDY: ULTRASOUND BREAST - RIGHT REASON FOR EXAM: Female, 68 years old. Right breast tenderness. Patient status post right lumpectomy with radiation and chemotherapy. TECHNIQUE: Axial and longitudinal images of the RIGHT breast were performed with a high resolution ultrasound transducer. # OF IMAGES: 41 COMPARISON: Comparison is made with the prior mammogram done earlier today as well as prior ultrasound of the left breast dated February 26, 2023. FINDINGS: RIGHT Breast: The upper medial aspect of the right breast was examined with ultrasound. There is a persistent hypoechoic irregular density at the site of the surgery measuring 1.8 cm x 2 cm x 1.5 cm. Surgical clips are seen adjacent to this finding suggestive of postoperative scarring at the lumpectomy site. US/Breast Limited Unilateral IMPRESSION: The upper inner quadrant of the right breast was examined with ultrasound. Findings suggestive of postoperative changes secondary to the lumpectomy. ASSESSMENT CATEGORY: BIRADS Category 2: Benign. A letter regarding these results will be sent to the patient by the facility within 30 days. Electronically Signed: Chandu Dean MD at 8:48 EDT ,
--- NOTE | 2024-03-30 08:49 | BI_ITS ---
MAMMOGRAPHY - UNILATERAL DIAGNOSTIC: RIGHT BREAST REASON FOR EXAM: Female, 68 years old. Prior right lumpectomy with chemotherapy and radiation therapy. Remote right excisional breast biopsy. Right breast pain. PERTINENT HISTORY: Personal history of breast cancer. TECHNIQUE: Digital unilateral breast aquiles (3D mammographic acquisition) in the CC and MLO projections. 2-D mediolateral oblique (MLO) and craniocaudad (CC) views of both breasts were obtained. CAD: Full Field Digital Mammography with Computer Added Detection was performed. COMPARISON: Comparison is made with prior study dated November 04, 2023. FINDINGS: Breast Composition: The breasts are heterogeneously dense, which may obscure small masses. There are no dominant masses or suspicious calcifications. Once again, the patient is status post lumpectomy in the slightly inferior medial aspect of the right breast with resultant postoperative scarring in the overlying skin thickening and deformity. There has been no change. Surgical clip is seen in the right axilla. No other significant abnormalities are identified. There has been no significant change since the prior study. BI/DIAG MAMM W/CAD, UNILAT IMPRESSION: Stable unilateral diagnostic mammogram. With the patient''s history of right breast pain, correlation with ultrasound is recommended. ASSESSMENT CATEGORY: BIRADS Category 0: Incomplete. Need additional imaging evaluation. A letter regarding these results will be sent to the patient by the facility within 30 days. Approximately 10% of breast cancers are not detected by mammography. A normal mammogram should not delay biopsy of a clinically suspicious abnormality. Electronically Signed: Chandu Dean MD at 9:49 EDT ,
== END | disposition home or self-care (01) ==
LOC: OPBI 08:48
PROVIDERS: PCP Nurse Practitioner; Referring Provider Nurse Practitioner Family; Visit Provider Nurse Practitioner Family
DX: N64.4 Mastodynia (principal)
CPT/HCPCS: 76642; 77061; 77065; G0279

== ENCOUNTER → 2024-04-09 | Outpatient (CLI) | payer MEDICARE, MEDICAID, SELFPAY ==
[2022-01-25 19:55] VITALS: BMI 31.8
--- NOTE | 2024-04-09 | BRBX_PTH ---
PATIENT: BO JACOB LOC: [facility] U#:[id number] AGE/SX: 68/F ROOM: RE04/09/[address]: Dr. Dia Tobin MD : 1955 BED: DIS: 04/09/2024 SPEC #: [id number] RECD: 04/09/24 14:39 STATUS: [place] RESarah #: [id number] TAQUERIA: 04/09/24 00:[address]: Dia Tobin DEPT: SURGICAL PATHOLOGY RECD BY: Cipriano Londono ENTERED: 04/10/24 07:45 SP TYPE: BREAST BX OTHR DR: Loan Dias, HEAD BOYS TENNIS COACH-C Tissues: Right breast, NOS Procedures: Surgery Specimen Level IV HEADER OPERATION: Core needle biopsy of right breast PRE-OP DIAGNOSIS: Right breast TISSUE SUBMITTED: Right breast tissue Ischemic Time: 1 minute Fixation Time: 29.5 hours MICROSCOPIC DIAGNOSIS Right breast, core biopsy: Benign hyalinized tissue with rare benign ductal elements. See comment. ARNOLD/ 04/13/2024 COMMENT Clinical correlation is suggested. Case has been reviewed in consultation with Dr. Foster who concurs with the above diagnosis. IDC:SJ MICROSCOPIC DESCRIPTION Slides are reviewed. GROSS DESCRIPTION Received in fixative is one container labeled with the patient's name and designated Right breast tissue. The specimen consists of multiple fragments of soto-yellow fibroadipose tissue measuring in aggregate 1.0 x 0.5 x 0.1cm. The entire specimen is submitted in one cassette. 04/10/2024 TC:5 CPT:82633
== END | disposition home or self-care (01) ==
PROVIDERS: PCP Nurse Practitioner; Referring Provider Surgery; Visit Provider Surgery
DX: D24.1 Benign neoplasm of right breast (principal)
CPT/HCPCS: 88305

== ENCOUNTER → 2024-06-19 | Outpatient (CLI) | payer MEDICARE, MEDICAID, SELFPAY ==
[2022-01-25 19:55] VITALS: BMI 31.8
--- NOTE | 2024-06-19 09:17 | BI_ITS ---
MAMMOGRAPHY - UNILATERAL DIAGNOSTIC: LEFT BREAST REASON FOR EXAM: Female, 68 years old. Left palpable breast lump. PERTINENT HISTORY: Personal history of breast cancer. Prior right lumpectomy and radiation. TECHNIQUE: Digital unilateral breast aquiles (3D mammographic acquisition) in the CC and MLO projections. 2-D mediolateral oblique (MLO) and craniocaudad (CC) views of both breasts were obtained. CAD: Full Field Digital Mammography with Computer Added Detection was performed. COMPARISON: Comparison is made with prior study dated November 04, 2023. FINDINGS: Breast Composition: There are scattered areas of fibroglandular density. There are no dominant masses or suspicious calcifications. Stable small fat-containing left axillary lymph nodes. No other significant abnormalities are identified. BI/DIAG MAMM W/CAD, UNILAT IMPRESSION: Stable unilateral diagnostic mammogram. With the patient''s history of a palpable lump in the left breast, correlation with ultrasound recommended. ASSESSMENT CATEGORY: BIRADS Category 0: Incomplete. Need additional imaging evaluation. A letter regarding these results will be sent to the patient by the facility within 30 days. Approximately 10% of breast cancers are not detected by mammography. A normal mammogram should not delay biopsy of a clinically suspicious abnormality. Electronically Signed: Chandu Dean MD at 10:15 EDT ,
--- NOTE | 2024-06-19 09:17 | US_ITS ---
STUDY: ULTRASOUND BREAST - LEFT REASON FOR EXAM: Female, 68 years old. Palpable lump at the 9:00 position of the breasts. TECHNIQUE: Axial and longitudinal images of the LEFT breast were performed with a high resolution ultrasound transducer. # OF IMAGES: 12 COMPARISON: Comparison is made with prior mammogram done earlier today as well as prior mammogram of the left breast dated February 26, 2023. FINDINGS: LEFT Breast: The palpable lump corresponds to a 8 mm x 15 mm x 6 mm echogenic nodule just deep to the skin surface. This most likely represents a lipoma. This is located at the 9:00 position of the breast at 6 cm from the nipple. US/Breast Limited Unilateral IMPRESSION: The palpable lump at the 9:00 position of the breast at 6 cm from the nipple corresponds to a 8 mm x 15 mm x 6 mm echogenic nodule most likely representing a lipoma. ASSESSMENT CATEGORY: BIRADS Category 2: Benign. A letter regarding these results will be sent to the patient by the facility within 30 days. Electronically Signed: Chandu Dean MD at 13:04 EDT ,
== END | disposition home or self-care (01) ==
LOC: OPBI 09:15
PROVIDERS: PCP Nurse Practitioner; Referring Provider Nurse Practitioner Family; Visit Provider Nurse Practitioner Family
DX: N63.20 Unspecified lump in the left breast, unspecified quadrant (principal); N64.4 Mastodynia
CPT/HCPCS: 76642; 77061; 77065; G0279

== ENCOUNTER → 2024-10-27 | Outpatient (CLI) | payer MEDICARE, MEDICAID, SELFPAY ==
[2022-01-25 19:55] VITALS: BMI 31.8
--- NOTE | 2024-10-27 12:27 | MRI_ITS ---
PROCEDURE: SPINE LUMBAR (ROUTINE) (MRISPL), 10/27/2024 REASON FOR EXAM: RADIULOPATHY TECHNIQUE: Multisequence multiplanar MR of the lumbar spine was performed without IV contrast. COMPARISON: 08/24/2021 FINDINGS: Vertebral body heights are preserved. T1 bright likely vertebral body hemangiomas within T11, L4 and L5. Few prominent Schmorl's nodes. Similar mild likely degenerative grade 1 anterolisthesis at L4-L5. Conus medullaris terminates normally at the L1 inferior endplate level. Crowding of the nerve roots of the cauda equina related to the below stenoses. L1-2: Mild diffuse disc bulging. Mild facet arthropathy. No significant spinal canal or foraminal stenosis. L2-3: Diffuse disc bulging with suspected tiny annular fissure in the right foraminal region. Ligamentum flavum hypertrophy. Facet arthropathy with a tiny synovial cyst posteriorly on the left. Minimal focal spinal canal stenosis. No significant foraminal stenosis.. L3-4: Diffuse disc bulging. Ligamentum flavum hypertrophy. Facet arthropathy. Moderate focal spinal canal stenosis with incomplete effacement of CSF. Mild bilateral foraminal stenoses. L4-5: Anterolisthesis as above with disc uncovering. Diffuse disc bulging with suspected tiny annular fissure in the left foraminal region. Ligamentum flavum hypertrophy. Facet arthropathy. Rqgpynyv-lb-brtslp focal spinal canal stenosis with virtually complete effacement of CSF. Narrowing of the bilateral lateral recesses. Mild/moderate bilateral foraminal stenoses. L5-S1: Mild diffuse disc bulging. Facet arthropathy. No significant focal spinal canal stenosis. Mild bilateral foraminal stenosis. Other: At least imaged three incompletely imaged right lobe hepatic lesions superiorly and inferiorly on the officer captain up to 2.5 cm, possibly cysts, but not well evaluated. Cervical and thoracic spondylosis not well evaluated. MRI/Spine Lumbar (Routine) IMPRESSION: 1. Multilevel spondylosis as above. Spinal canal stenoses up to rkbibznh-xz-uh megan at L4-L5. No high-grade foraminal stenosis identified. 2. Partially imaged lesions presumably reflect cysts but are incompletely vignesh cterized, up to at least 2.5 cm. Given reported history of malignancy, would recommend confirmation either with ultrasound or m [facility] hepatic protocol CT or MRI. If US is pursued, all three lesions would need to be visualized which may be difficult d ue to small size of the smaller lesions. Comparison with any available outside imaging may also be helpful. 3. Additional description as above. Reading Location: [id number]
== END | disposition home or self-care (01) ==
LOC: MRI 12:16
PROVIDERS: PCP Nurse Practitioner; Referring Provider Anesthesiology Pain Medicine; Visit Provider Anesthesiology Pain Medicine
DX: M54.16 Radiculopathy, lumbar region (principal)
CPT/HCPCS: 72148

== ENCOUNTER → 2024-10-31 | Outpatient (CLI) | payer MEDICARE, MEDICAID, SELFPAY ==
[2022-01-25 19:55] VITALS: BMI 31.8
--- NOTE | 2024-10-31 07:33 | US_ITS ---
PROCEDURE: ABDOMEN LIMITED REASON FOR EXAM: LIVER LESIONS COMPARISON: None FINDINGS: Liver: Grossly normal size and echotexture. 2 small hepatic cysts, largest measuring up to 1.3 cm. Gallbladder: No stones, sludge, wall thickening or tenderness. A couple of small gallbladder polyps, largest measuring up to 4 mm. Common bile duct: Normal measuring 4 mm. Pancreas: Visualized portions are sonographically unremarkable. Visualized portions of the right kidney are unremarkable. No right upper quadrant ascites. US/Abdomen Limited IMPRESSION: 1. 2 small hepatic cysts. 2. Small gallbladder polyps. Reading [facility]
== END | disposition home or self-care (01) ==
LOC: US 07:31
PROVIDERS: PCP Nurse Practitioner; Referring Provider Internal Medicine Hematology & Oncology; Visit Provider Internal Medicine Hematology & Oncology
DX: K76.9 Liver disease, unspecified (principal)
CPT/HCPCS: 76705

== ENCOUNTER → 2024-11-03 | Outpatient (CLI) | payer MEDICARE, MEDICAID, SELFPAY ==
[2022-01-25 19:55] VITALS: BMI 31.8
--- NOTE | 2024-11-03 08:47 | BI_ITS ---
PROCEDURE: SCRN MAMM (CAD)W/DORIS BILAT REASON FOR EXAM: F, Age 69 y/o, presents for annual screening mammogram. TECHNIQUE: Bilateral screening digital breast tomosynthesis with 2D and 3D images. Computer aided detection. COMPARISON: 06/19/2024, 03/30/2024, 10/31/2022, 11/04/2023 FINDINGS: There are scattered areas of fibroglandular density. There are stable postsurgical changes in the lower inner right breast at middle depth. No suspicious masses, areas of developing architectural distortion, or suspicious calcifications. BI/SCRN MAMM (CAD)W/DORIS BILAT IMPRESSION: There is no mammographic evidence of malignancy. BI-RADS 2: BENIGN. RECOMMEND ANNUAL MAMMOGRAPHIC SCREENING. Follow-up code: Routine Follow-up The patient will be notified of the results by letter. Reading Location: [id number]
--- NOTE | 2024-11-03 08:49 | BD_ITS ---
PROCEDURE: DEXA BONE DENSITY STUDY N/A REASON FOR EXAM: SCREENING FOR OSTEOPOROSIS F, age 69 y/o . TECHNIQUE: DEXA scan of the lumbar spine and both hips. COMPARISON: 10/31/2022 FINDINGS: T-SCORES Lumbar spine: 0.2 (BMD 1.074); Previously: -0.8 Left hip: -0.3 (BMD 0.906); Previously: -0.8 Right hip: -0.4 (BMD 0.893); Previously: -1.2 Left forearm: ( ); Previously: Right forearm: ( ); Previously: Right hip FRAX* Results: 10 Year Probability of Fracture: Hip Fracture(1): 0.5% Major Osteoporotic Fracture(2): 7.4% Left hip FRAX* Results: 10 Year Probability of Fracture: Hip Fracture(1): -0.8% Major Osteoporotic Fracture(2): 8.3% *FRAX is a trademark of the [employer]'s [place] for Metabolic Bone Disease, World Health Organization (WHO) Collaborating [place]. 1-The 10-year probability of fracture may be lower than reported if the patient has received treatment. 2-Major Osteoporotic Fracture: Clinical Spine, Forearm, Hip or Shoulder. The T-scores are also available for review on the [facility] PACS or by accessing the [facility] electronic medical record. BD/Dexa Bone Density Study IMPRESSION: Improving BMD of the lumbar spine and bilateral hips. Reading Location: [facility]
== END | disposition home or self-care (01) ==
LOC: OPBI 08:45
PROVIDERS: PCP Nurse Practitioner; Referring Provider Internal Medicine Hematology & Oncology; Visit Provider Internal Medicine Hematology & Oncology
DX: Z12.31 Encounter for screening mammogram for malignant neoplasm of breast (principal); Z78.0 Asymptomatic menopausal state
CPT/HCPCS: 77063; 77067; 77080

== ENCOUNTER 2025-04-04 01:03 | Emergency (ER) | payer MEDICARE, MEDICAID, SELFPAY ==
[2022-01-25 19:55] VITALS: BMI 31.8
[2025-04-04 01:05] VITALS: BP 156/85; PULSE 71; RESP 20; TEMP 36.1; O2SAT 95; BMI 36.1
[2025-04-04 01:31] LABS: Hematocrit 42.9 % (37-47); Hemoglobin 14.8 g/dL (12.0-15.0); Immature Granulocytes Count 0.040 X10^3/uL (0.0-0.0); Mean Corp Hgb Conc 34.5 g/dL (32-36); Mean Corpuscular Volume 93.3 fL (81-99); Mean Platelet Vol. 9.4 fl (6.2-12.0); NRBC Flagged by Analyzer 0 % (0-5); Platelet Count 255 K/mm3 (150-450); RBC Distribution Width CV 12.4 % (11.6-14.6); RBC Distribution Width SD 42.6 fl (35.1-43.9); Red Blood Count 4.60 M/mm3 (4.2-5.4); White Blood Count 7.3 K/mm3 (4.4-11.0)
--- NOTE | 2025-04-04 01:35 | RAD_ITS ---
PROCEDURE: CHEST 1 VIEW (PORTABLE) 04/04/2025 REASON FOR EXAM: CHEST PAIN TECHNIQUE: Frontal view of the chest. COMPARISON: None. FINDINGS: The lungs are expanded. There is no demonstrated parenchymal abnormality. There is no demonstrated pleural abnormality. Enlarged cardiac silhouette. Normal mediastinum and sydni. Normal visualized pulmonary arteries. Atheromatous plaques of the visualized aortic arch and descending thoracic aorta. Diffuse spondylosis of the visualized thoracic spine. Normal visualized ribs, clavicles. Degenerative joint disease. There is no demonstrated abnormality of the visualized soft tissue structures of the upper abdomen. RAD/Chest 1 View (Portable) IMPRESSION: No evidence for acute abnormality. Reading Location[facility]
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
--- OUTSIDE RECORDS SUMMARY | 2025-04-04 01:49 | XMS RPT_ITS | CCD ---
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 IgG IA Qn (S) <9.0 Normal <15.0 [facility] Comment on above: Order Comment: Anthonylizett green Type: BLOOD SPECIMENOrdering Facility: [facility] Address: [address] [place] [address] Result Comment: <15 GPL [id number] GPL Indeterminate>20 GPL PositiveThe following results were obtained with the Inova QUANTA Lite BRIELLE IgG III JHONNY. Cardiolipin IgG values obtained with the different manufacturers' assay methods may not be used interchangeably. The magnitude of the reported IgG levels cannot be correlated to an endpoint titer. Performed By: #### 5 076-5MIKEY CARDIM ####[facility] LABCLIA [id number] [facility] CENTERDESK [id number] [place] [address] [place] CARDIOLIPIN IGM ABSon 2023 Cardiolipin IgM IA Qn (S) <9.0 Normal <12.5 [facility] Comment on above: Order Comment: Speclizett green Type: BLOOD SPECIMENOrdering Facility: [facility] Address: [address] [place] [address] Result Comment: <12. 5 MPL Tdbxnbqt83.5-20 MPL Indeterminate>20 MPL PositiveThe following results were obtained with the Inova QUANTA Lite BRIELLE IgM III JHONNY. Cardiolipin IgM values obtained with the different manufacturers' assay methods may not be used interchangeably. The magnitude of the reported IgM levels cannot be correlated to an endpoint titer.??? Performed By: #### 5 076-5MIKEY CARDIM ####[facility] LABCLIA [id number] [facility]ereza [facility] [id number] STATES [place] CASE MANAGEMon 04-23-[address] [facility] CBC panel Auto (Bld)on 04-23 Erythrocyte distribution width (RBC) [Ratio] 12.7 % Normal 11.5-15.0 [facility] Comment on above: Order Comment: Speci men Type: BLOOD SPECIMENOrdering Facility: [facility] Address: [address] [place] [address] Performed By: #### 5 8410-2 ####[facility] LAB[facility]ATORYCLIA [id number] [address] STATES OF [facility] Hematocrit (Bld) [Volume fraction] 46.1 % High 36.0-46.0 [facility] Comment on above: Order Comment: Speci men Type: BLOOD SPECIMENOrdering Facility: [facility] Address: [address] [place] [address] Performed By: #### 5 8410-2 ####[facility]ATORYCLIA [id number] [address] [place] Hemoglobin (Bld) [Mass/Vol] 15.6 g/dL High 11.5-15.5 [facility] Comment on above: Order Comment: Speci men Type: BLOOD SPECIMENOrdering Facility: [facility] Address: [address] [place] [address] Performed By: #### 5 8410-2 ####[facility]ATORYCLIA [id number] [address] [place] MCH (RBC) [Entitic mass] 31.7 pg Normal 26.0-34.0 [facility] Comment on above: Order Comment: Speci men Type: BLOOD SPECIMENOrdering Facility: [facility] Address: [address] [place] [address] Performed By: #### 5 8410-2 ####[facility] LAB[facility]ATORYCLIA [id number] [address] [place] MCHC (RBC) [Mass/Vol] 33.8 g/dL Normal 30.5-36.0 [facility] Comment on above: Order Comment: Speci men Type: BLOOD SPECIMENOrdering Facility: [facility] Address: [address] [place] [address] Performed By: #### 5 8410-2 ####[facility] LAB[facility]ATORYCLIA [id number] [address] [place] MCV (RBC) [Entitic vol] 93.7 fL Normal 80.0-100.0 [facility] Comment on above: Order Comment: Speci men Type: BLOOD SPECIMENOrdering Facility: [facility] Address: [address] [place] [address] Performed By: #### 5 8410-2 ####[facility]ATORYCLIA [id number] [address] [place] Nucleated RBC (Bld) [#/Vol] 10*3/uL Normal <0.01 [facility] Comment on above: Order Comment: Speci men Type: BLOOD SPECIMENOrdering Facility: [facility] Address: [address] [place] [address] Performed By: #### 5 8410-2 ####[facility] LAB[facility]ATORYCLIA [id number] [address] [place] Platelet mean volume (Bld) [Entitic vol] 9.8 fL Normal 9.0-12.7 [facility] Comment on above: Order Comment: Speci men Type: BLOOD SPECIMENOrdering Facility: [facility] Address: [address] [place] [address] Performed By: #### 5 8410-2 ####[facility]ATORYCLIA [id number] [place] [address] [place] Platelets (Bld) [#/Vol] 307 10*3/uL Normal 150-400 [facility] Comment on above: Order Comment: Speci men Type: BLOOD SPECIMENOrdering Facility: [facility] Address: [address] [place] [address] Performed By: #### 5 8410-2 ####[facility]ATORYCLIA [id number] [place] [address] [place] RBC (Bld) [#/Vol] 4.92 10*6/uL Normal 3.90-5.20 [facility] Comment on above: Order Comment: Speci men Type: BLOOD SPECIMENOrdering Facility: [facility] Address: [address] [place] [address] Performed By: #### 5 8410-2 ####[facility]ATORYCLIA [id number] [address] [place] WBC (Bld) [#/Vol] 7.84 10*3/uL Normal 3.70-11.00 [facility] Comment on above: Order Comment: Speci men Type: BLOOD SPECIMENOrdering Facility: [facility] Address: [address] [place] [address] Performed By: #### 5 8410-2 ####[facility] LAB[facility]ATORYCLIA [id number] [address] [place] CNDSon 04-23-[address] [facility] COAG CORE PANEL BLDon 2023 aPTT Coag (PPP) [Time] 26.5 s Normal 23.0-32.4 [facility] Comment on above: Order Comment: Speci men Type: BLOOD SPECIMENOrdering Facility: [facility] Address: [address] [place] [address] Performed By: #### C ORPNL ####[facility] LABCLIA [id number] [address] [place] Fibrinogen Coag (PPP) [Mass/Vol] 456 mg/dL High 200-400 [facility] Comment on above: Order Comment: Speci men Type: BLOOD SPECIMENOrdering Facility: [facility] Address: [address] [place] [address] Result Comment: Izzy en Plasma AliquotSample checked for clot.Result rechecked. Performed By: #### C ORPNL ####[facility] LABCLIA [id number] [place] [address] [place] INR Coag (PPP) [Relative time] 1.0 {INR} Normal 0.9-1.3 [facility] Comment on above: Order Comment: Prince green Type: BLOOD SPECIMENOrdering Facility: [facility] Address: [address] [place] [address] Result Comment: Savanna min K Antagonist (VKA) Therapeutic Range: INR 2 to 3 (Target INR of 2.5)Note: For patients treated with VKA drugs, such as warfarin, the [place] [employer] 2012 Guideline recommends a therapeutic INR range of 2 to 3 (target INR of 2.5). This recommendation includes high-risk patients with antiphospholipid syndrome with previous arterial or venous thromboembolism, current-generation mechanical or bioprosthetic aortic heart valve replacement.Note: Patients with mechanical aortic valve replacement and additional risk factors for thromboembolic events (atrial fibrillation, previous thromboembolism, LV dysfunction, hypercoagulable conditions) or an older generation mechanical AVR (i.e., ball in-Cage) or any mechanical MVR should have a INR therapeutic range of 2.5 to 3.5 (target INR of 3).Tommy GH, et al. Chest 2012, 141:7S-47SNishimshruthi RA, et al. JAC 2017, 70: 252-289 Performed By: #### C ORPNL ####[facility] LABCLIA [id number] [place] [address] [place] PT Coag (PPP) [Time] 10.4 s Normal 9.7-13.0 [facility] Comment on above: Order Comment: Prince green Type: BLOOD SPECIMENOrdering Facility: [facility] Address: [address] [place] [address] Performed By: #### C ORPNL ####[facility] LABCLIA [id number] [place] [address] [place] CRP [facility] CRP [Mass/Vol] 0.3 mg/dL Normal <0.9 [facility] Comment on above: Order Comment: Prince green Type: BLOOD SPECIMENOrdering Facility: [facility] Address: [address] [place] [address] Performed By: #### 1 988-5 ####[facility] LABCLIA [id number] [place] [address] [place] Cardiolipin IgA Ser IA-aCnco n 04-23-2024 Cardiolipin IgA IA Qn (S) <9.0 Normal <12.0 [facility] Comment on above: Order Comment: Speci men Type: BLOOD SPECIMENOrdering Facility: [facility] Address: [address] [place] [address] Result Comment: <12 APL [id number] APL Indeterminate>20 APL PositiveThe following results were obtained with the Global GrindA Lite BRIELLE IgA III JHONNY. Cardiolipin IgA values obtained with the different manufacturers' assay methods may not be used interchangeably. The magnitude of the reported IgA levels cannot be correlated to an endpoint titer. Performed By: #### 5 076-5, SIENA JENSEN ####[facility] LABCLIA [id number] [address] [place] HYPERCOAG PANELon 04-23-2024 Activated protein C resistance Coag (PPP) [Time ratio] 2.37 Ratio Normal >1.96 [facility] Comment on above: Order Comment: Speci men Type: BLOOD SPECIMENOrdering Facility: [facility] Address: [address] [place] [address] Result Comment: The specimen was treated with ANTI-XA neutralizing reagents to remove heparin, low molecular weight heparin, and DOAC activity from the plasma. Performed By: #### H COAG ####[facility] LABCLIA [id number] [address] [place] ANTI XA HZ + DOAC <0.10 Normal <0.10 [facility] Comment on above: Order Comment: Speci men Type: BLOOD SPECIMENOrdering Facility: [facility] Address: [address] [place] [address] Performed By: #### H COAG ####[facility] LABCLIA [id number] [place] [address] [place] Antithrombin actual/normal Chromogenic method (PPP) [Rel catalytic activity/Vol] 134 % Normal 84-138 [facility] Comment on above: Order Comment: Speci men Type: BLOOD SPECIMENOrdering Facility: [facility] Address: [address] [place] [address] Performed By: #### H COAG ####[facility] LABIA [id number] [place] [address] [place] aPTT Coag (Bld) [Time] 26.6 s Normal 24.0-35.1 [facility] Comment on above: Order Comment: Speci men Type: BLOOD SPECIMENOrdering Facility: [facility] Address: [address] [place] [address] Performed By: #### H COAG ####[facility] [id number] [place] [address] [place] APTT SCRN HZ + DOAC 26.2 Normal 24.0-35.1 [facility] Comment on above: Order Comment: Speci men Type: BLOOD SPECIMENOrdering Facility: [facility] Address: [address] [place] [address] Performed By: #### H COAG ####[facility] [id number] [place] [address] [place] aPTT W excess hexagonal phase phospholipid Coag (PPP) [Time] 40.7 seconds Normal 34.0-51.8 [facility] Comment on above: Order Comment: Speci men Type: BLOOD SPECIMENOrdering Facility: [facility] Address: [address] [place] [address] Result Comment: The specimen was treated with ANTI-XA neutralizing reagents to remove heparin, low molecular weight heparin, and DOAC activity from the plasma. Performed By: #### H COAG ####[facility] LABIA [id number] [place] [address] [place] Coagulation factor VIII activity actual/normal Coag (PPP) [Relative time] 136 % Normal 50-173 [facility] Comment on above: Order Comment: Speci men Type: BLOOD SPECIMENOrdering Facility: [facility] Address: [address] [place] [address] Result Comment: The specimen was treated with ANTI-XA neutralizing reagents to remove heparin, low molecular weight heparin, and DOAC activity from the plasma. Performed By: #### H COAG ####[facility] LABIA [id number] [place] [address] [place] Coagulation factor X activated act Coag Qn (PPP) 0.10 High <0.10 [facility] Comment on above: Order Comment: Speci men Type: BLOOD SPECIMENOrdering Facility: [facility] Address: [address] [place] [address] Result Comment: This test was developed and its performance characteristics determined by [facility] [place] ([facility]). It has not been cleared or approved by the FDA. -[facility] is regulated under CLIA as qualified to perform high-complexity testing. This test is used for clinical purposes. It should not be regarded as investigational or for research. Performed By: #### H COAG ####[facility] CENTERIA [id number] [place] [address] [place] Delta dRVVT Coag (PPP) [Time diff] 0.6 delta seconds Normal <7.1 [facility] Comment on above: Order Comment: Speci men Type: BLOOD SPECIMENOrdering Facility: [facility] Address: [address] [place] [address] Result Comment: The specimen was treated with ANTI-XA neutralizing reagents to remove heparin, low molecular weight heparin, and DOAC activity from the plasma. Performed By: #### H COAG ####[facility] LABIA [id number] [place] [address] [place] dRVVT W excess hexagonal phase phospholipid actual/normal Coag (PPP) [Relative time] 40.0 seconds Normal 34.2-47.9 [facility] Comment on above: Order Comment: Speci men Type: BLOOD SPECIMENOrdering Facility: [facility] Address: [address] [place] [address] Result Comment: The specimen was treated with ANTI-XA neutralizing reagents to remove heparin, low molecular weight heparin, and DOAC activity from the plasma. Performed By: #### H COAG ####[facility] LABBAR[facility] [id number] [address] OF [facility] Protein C actual/normal Coag (PPP) [Relative time] 132 % Normal 76-147 [facility] Comment on above: Order Comment: Speci men Type: BLOOD SPECIMENOrdering Facility: [facility] Address: [address] [place] [address] Performed By: #### H COAG ####[facility] [id number] [address] STATES [facility] Protein S actual/normal Coag (PPP) [Relative time] 105 % Normal 59-152 [facility] Comment on above: Order Comment: Speci men Type: BLOOD SPECIMENOrdering Facility: [facility] Address: [address] [place] [address] Result Comment: The specimen was treated with ANTI-XA neutralizing reagents to remove heparin, low molecular weight heparin, and DOAC activity from the plasma. Performed By: #### H COAG ####[facility] [id number] [address] STATES OF [facility] Thrombin time Coag (PPP) [Time] <16.8 Normal <18.6 [facility] Comment on above: Order Comment: Speci [facility] Type: BLOOD SPECIMENOrdering Facility: [facility] Address: [address] [place] [address] Performed By: #### H COAG ####[facility] LABIA [id number] [address] [place] THROMBIN TIME HZ + DOAC 19.4 High <18.6 [facility] Comment on above: Order Comment: Speci men Type: BLOOD SPECIMENOrdering Facility: [facility] Address: [address] [place] [address] Performed By: #### H COAG ####[facility] LABCLIA [id number] [facility] CENTERDESK [address] [place] Magnesium SerPl-mCncon 04-23 Magnesium [Mass/Vol] 2.2 mg/dL Normal 1.7-2.3 [facility] Comment on above: Order Comment: Speci men Type: BLOOD SPECIMENOrdering Facility: [facility] Address: [address] [place] [address] Performed By: #### 2 4321-2, 80887-0 ####[facility] LABORATORYCLIA [id number] [place] [address] [place] NURSING PROGon 04-23-[address] [facility] PROTHROMBIN GENE PCRon 04-23 PROTHROMBIN GENE MUTATION Normal [facility] Comment on above: Order Comment: Speci men Type: BLOOD SPECIMENOrdering Facility: [facility] Address: [address] [place] [address] Result Comment: Prot hrombin Gene MutationLaboratory Accession Number: [id number]:NORMALInterpretation:The DNA sample is negative for the c.*97G>A variant (legacy nzmz84481U>A) in the 3' untranslated region of the Factor II (F2) gene.This result is not associated with an increased risk of thromboembolicdisease. Thromboembolic disease is a multifactorial disorder and othercauses are not excluded by this result.Methodology:Isolated Genomic DNA from the patient's blood specimen is evaluatedfor the c*97G>A (g.[id number]) variant of the F2 gene [RefSeqNM_[id number];GRCh38/hg38] by multiplex polymerase chain reaction(PCR) followed by melting curve analysis.Limitations:This assay is designed to detect the c.*97G>A (32015X>A) variant inthe F2 gene. Uncommon variants or single nucleotide polymorphisms mayaffect binding of probes and may rarely result in false negative,false positive or indeterminate results. This assay does not detectother disease-associated rare variants in F2 or other causes ofthromboembolic disease.Disclaimer:This test was developed and its performance characteristics determinedby [facility] [place] ([facility]). It has not been cleared or approved bythe FDA. [facility] is regulated under CLIA as certified to perform high-complexity testing. This test is used for clinical purposes. It shouldnot be regarded as investigational or for research.Testing and interpretation performed at [facility], [address] [place] [address]. [place] Number: [id number]:1) Inheritied Thrombophilias in . ACOG Practice Bulletin. No.197. [place] [employer]. ObseteGynecol 2018;132:e18-34.2) Garrett SR, Ivette FR, Anisha PH, and Rukhsana RICO. A commongenetic variation in the 3'-untranslated region of the prothrombingene is associated with elevated plasma prothrombin levels and anincrease in venous thrombosis. Blood 88:3698-703, 1995.3) Megan I, Ariel V, Marlon C, Debbie K. [id number]>T: 16 new cases, association with the 29084P>G polymorphism,and literature review. J Thromb Haemost. 2009;9:1585-7.As reviewed by Fawn Pritchett MD Performed By: #### P TGEN ####[facility] LIMSCLIA [id number] [facility] [id number] [place] [address] [place] Basic metabolic 2000 panelon 04-22-2024 Anion gap [Moles/Vol] 11 mmol/L Normal 8-15 [facility] Comment on above: Order Comment: Speci men Type: BLOOD SPECIMENOrdering Facility: [facility] Address: [address] [place] [address] Performed By: #### 2 4321-2, 39008-5 ####[facility] LABORATORYCLIA [id number] [place] [address] [place] Calcium [Mass/Vol] 8.8 mg/dL Normal 8.5-10.2 [facility] Comment on above: Order Comment: Speci men Type: BLOOD SPECIMENOrdering Facility: [facility] Address: [address] [place] [address] Performed By: #### 2 4321-2, ####[facility] LABORATORYCLIA [id number] [place] [address] [place] Chloride [Moles/Vol] 107 mmol/L Normal 98-107 [facility] Comment on above: Order Comment: Speci men Type: BLOOD SPECIMENOrdering Facility: [facility] Address: [address] [place] [address] Performed By: #### 2 4322, ####[facility] LABORATORYCLIA [id number] [address] STATES [place] CO2 [Moles/Vol] 22 mmol/L Normal 22-30 [facility] Comment on above: Order Comment: Speci men Type: BLOOD SPECIMENOrdering Facility: [facility] Address: [address] [place] [address] Performed By: #### 2 4320-2, ####[facility] LABORATORYCLIA [id number] [place] [address] [place] Creatinine [Mass/Vol] 0.80 mg/dL Normal 0.58-0.96 [facility] Comment on above: Order Comment: Speci men Type: BLOOD SPECIMENOrdering Facility: [facility] Address: [address] [place] [address] Performed By: #### 2 432-2, ####[facility] LABORATORYCLIA [id number] [address] Creatinine and Glomerular filtration rate.predicted panel (S/P/Bld) 80 mL/min/1.73m??? Normal >=60 [facility] Comment on above: Order Comment: Speci men Type: BLOOD SPECIMENOrdering Facility: [facility] Address: [address] [place] [address] Result Comment: Conchita mated Glomerular Filtration Rate (eGFR) is calculated using the 2020 CKD-EPI creatinine equation. This equation utilizes serum creatinine, sex, and age as parameters. The creatinine assay has traceable calibration to isotope dilution-mass spectrometry. Refer to KDIGO guidelines for clinical interpretation. In patients with unstable renal function, e.g. those with acute kidney injury, the eGFR may not accurately reflect actual GFR. Performed By: #### 2 4320-09, ####[facility] LABORATORYCLIA [id number] [place] [address] [place] Glucose [Mass/Vol] 84 mg/dL Normal 74-99 [facility] Comment on above: Order Comment: Prince green Type: BLOOD SPECIMENOrdering Facility: [facility] Address: [address] [place] [address] Result Comment: The [place] [employer] (ADA) provides guidance for cutoff values for fasting glucose and random glucose. The ADA defines fasting as no caloric intake for at least 8 hours. Fasting plasma glucose results between 100 to 125 mg/dL indicate increased risk for diabetes (prediabetes).Fasting plasma glucose results greater than or equal to 126 mg/dL meet the criteria for diagnosis of diabetes. In the absence of unequivocal hyperglycemia, results should be confirmed by repeat testing. In a patient with classic symptoms of hyperglycemia or hyperglycemic crisis, random plasma glucose results greater than or equal to 200 mg/dL meet the criteria for diagnosis of diabetes.Reference: Standards of Medical Care in Diabetes 2016, [place] [employer]. Diabetes Care. 2016.39(Suppl 1). Performed By: #### 2 4320-, ####[facility]ATORYCLIA [id number] [place] [id number] [place] Potassium [Moles/Vol] 3.7 mmol/L Normal 3.7-5.1 [facility] Comment on above: Order Comment: Prince green Type: BLOOD SPECIMENOrdering Facility: [facility] Address: [address] [place] [id number] Performed By: #### 2 4320-09, ####[facility]ATORYCLIA [id number] [place] [address] [place] Sodium [Moles/Vol] 140 mmol/L Normal 136-144 [facility] Comment on above: Order Comment: Speci men Type: BLOOD SPECIMENOrdering Facility: [facility] Address: [address] [place] [address] Performed By: #### 2 4321-2, 04777-0 ####[facility]ATORYCLIA [id number] [place] [id number] [place] Urea nitrogen [Mass/Vol] 17 mg/dL Normal 7-21 [facility] Comment on above: Order Comment: Speci men Type: BLOOD SPECIMENOrdering Facility: [facility] Address: [address] [place] [address] Performed By: #### 2 4321-2, ####[facility]ATORYCLIA [id number] [address] [place] CASE MANAGEMon 04-22-[address] [facility] CBC W Auto Differential pane l (Bld)on 04-22-2024 Basophils (Bld) [#/Vol] 0.05 10*3/uL Normal <0.11 [facility] Comment on above: Order Comment: Speci men Type: BLOOD SPECIMENOrdering Facility: [facility] Address: [address] [place] [address] Performed By: #### 5 7021-8 ####[facility]ATORYCLIA [id number] [address] [place] Basophils/100 WBC (Bld) 0.7 % Normal [facility] Comment on above: Order Comment: Speci men Type: BLOOD SPECIMENOrdering Facility: [facility] Address: [address] [place] [address] Performed By: #### 5 7021-8 ####[facility]ATORYCLIA [id number] [address] [place] Differential cell count method Nom (Bld) Auto Normal [facility] Comment on above: Order Comment: Speci men Type: BLOOD SPECIMENOrdering Facility: [facility] Address: [address] [place] [address] Performed By: #### 5 7021-8 ####[facility]ATORYCLIA [id number] [address] [place] Eosinophils (Bld) [#/Vol] 0.26 10*3/uL Normal <0.46 [facility] Comment on above: Order Comment: Speci men Type: BLOOD SPECIMENOrdering Facility: [facility] Address: [address] [place] [address] Performed By: #### 5 7021-8 ####[facility]ORYCLIA [id number] [address] Eosinophils/100 WBC (Bld) 3.6 % Normal [facility] Comment on above: Order Comment: Speci men Type: BLOOD SPECIMENOrdering Facility: [facility] Address: [address] [place] [address] Performed By: #### 5 7021-8 ####[facility]ATORYCLIA [id number] [address] Erythrocyte distribution width (RBC) [Ratio] 12.4 % Normal 11.5-15.0 [facility] Comment on above: Order Comment: Speci men Type: BLOOD SPECIMENOrdering Facility: [facility] Address: [address] [place] [address] Performed By: #### 5 7021-8 ####[facility]ATORYCLIA [id number] [address] Hematocrit (Bld) [Volume fraction] 42.0 % Normal 36.0-46.0 [facility] Comment on above: Order Comment: Speci men Type: BLOOD SPECIMENOrdering Facility: [facility] Address: [facility] [place] [address] Performed By: #### 5 7021-8 ####[facility]ORYCLIA [id number] [address] [place] Hemoglobin (Bld) [Mass/Vol] 14.3 g/dL Normal 11.5-15.5 [facility] Comment on above: Order Comment: Speci men Type: BLOOD SPECIMENOrdering Facility: [facility] Address: [address] [place] [address] Performed By: #### 5 7021-8 ####[facility]ATORYCLIA [id number] [place] [address] [place] Immature granulocytes (Bld) [#/Vol] 0.03 10*3/uL Normal <0.10 [facility] Comment on above: Order Comment: Speci men Type: BLOOD SPECIMENOrdering Facility: [facility] Address: [address] [place] [address] Performed By: #### 5 7021-8 ####[facility]ORATORYCLIA [id number] [place] [address] [place] Immature granulocytes/100 WBC (Bld) 0.4 % Normal [facility] Comment on above: Order Comment: Speci men Type: BLOOD SPECIMENOrdering Facility: [facility] Address: [address] [place] [address] Performed By: #### 5 7021-8 ####[facility]ORATORYCLIA [id number] [place] [address] [place] Lymphocytes (Bld) [#/Vol] 1.78 10*3/uL Normal 1.00-4.00 [facility] Comment on above: Order Comment: Speci men Type: BLOOD SPECIMENOrdering Facility: [facility] Address: [address] [place] [address] Performed By: #### 5 7021-8 ####[facility]ATORYCLIA [id number] [place] [address] [place] Lymphocytes/100 WBC (Bld) 24.9 % Normal [facility] Comment on above: Order Comment: Speci men Type: BLOOD SPECIMENOrdering Facility: [facility] Address: [address] [place] [address] Performed By: #### 5 7021-8 ####[facility]ATORYCLIA [id number] [address] MCH (RBC) [Entitic mass] 31.4 pg Normal 26.0-34.0 [facility] Comment on above: Order Comment: Speci men Type: BLOOD SPECIMENOrdering Facility: [facility] Address: [address] [place] [address] Performed By: #### 5 7021-8 ####[facility]ATORYCLIA [id number] [address] MCHC (RBC) [Mass/Vol] 34.0 g/dL Normal 30.5-36.0 [facility] Comment on above: Order Comment: Speci men Type: BLOOD SPECIMENOrdering Facility: [facility] Address: [address] [place] [address] Performed By: #### 5 7021-8 ####[facility]ATORYCLIA [id number] [address] MCV (RBC) [Entitic vol] 92.3 fL Normal 80.0-100.0 [facility] Comment on above: Order Comment: Speci men Type: BLOOD SPECIMENOrdering Facility: [facility] Address: [address] [place] [address] Performed By: #### 5 7021-8 ####[facility]ATORYCLIA [id number] [address] Monocytes (Bld) [#/Vol] 0.50 10*3/uL Normal <0.87 [facility] Comment on above: Order Comment: Speci men Type: BLOOD SPECIMENOrdering Facility: [facility] Address: [address] [place] [address] Performed By: #### 5 7021-8 ####[facility]ATORYCLIA [id number] [address] Monocytes/100 WBC (Bld) 7.0 % Normal [facility] Comment on above: Order Comment: Speci men Type: BLOOD SPECIMENOrdering Facility: [facility] Address: [address] [place] [address] Performed By: #### 5 7021-8 ####[facility]ORATORYCLIA [id number] [place] [address] [place] Neutrophils (Bld) [#/Vol] 4.54 10*3/uL Normal 1.45-7.50 [facility] Comment on above: Order Comment: Speci men Type: BLOOD SPECIMENOrdering Facility: [facility] Address: [facility] [place] [address] Performed By: #### 5 7021-8 ####[facility]ORATORYCLIA [id number] [place] [address] [place] Neutrophils/100 WBC (Bld) 63.4 % Normal [facility] Comment on above: Order Comment: Speci men Type: BLOOD SPECIMENOrdering Facility: [facility] Address: [address] [place] [address] Performed By: #### 5 7021-8 ####[facility]ATORYCLIA [id number] [place] [address] [place] Nucleated RBC (Bld) [#/Vol] 10*3/uL Normal <0.01 [facility] Comment on above: Order Comment: Speci men Type: BLOOD SPECIMENOrdering Facility: [facility] Address: [address] [place] [address] Performed By: #### 5 7021-8 ####[facility]ORATORYCLIA [id number] [address] [place] Nucleated RBC/100 WBC (Bld) [Ratio] 0.0 /[address] [facility] Comment on above: Order Comment: Speci men Type: BLOOD SPECIMENOrdering Facility: [facility] Address: [facility] [place] [address] Performed By: #### 5 7021-8 ####[facility]ORATORYCLIA [id number] [address] [place] Platelet mean volume (Bld) [Entitic vol] 9.6 fL Normal 9.0-12.7 [facility] Comment on above: Order Comment: Speci men Type: BLOOD SPECIMENOrdering Facility: [facility] Address: [address] [place] [address] Performed By: #### 5 7021-8 ####[facility]ATORYCLIA [id number] [address] STATES OF [facility] Platelets (Bld) [#/Vol] 274 10*3/uL Normal 150-400 [facility] Comment on above: Order Comment: Speci men Type: BLOOD SPECIMENOrdering Facility: [facility] Address: [address] [place] [address] Performed By: #### 5 7021-8 ####[facility]ATORYCLIA [id number] [place] [address] [place] RBC (Bld) [#/Vol] 4.55 10*6/uL Normal 3.90-5.20 [facility] Comment on above: Order Comment: Speci men Type: BLOOD SPECIMENOrdering Facility: [facility] Address: [address] [place] [address] Performed By: #### 5 7021-8 ####[facility]ATORYCLIA [id number] [address] [place] WBC (Bld) [#/Vol] 7.16 10*3/uL Normal 3.70-11.00 [facility] Comment on above: Order Comment: Speci men Type: BLOOD SPECIMENOrdering Facility: [facility] Address: [address] [place] [address] Performed By: #### 5 7021-8 ####[facility]ATORYCLIA [id number] [address] [place] CONSULT PROGon 04-22-[address] [facility] ECG COMPLETEon 04-22-[address] [facility] ECHO WITH AGITATED SALINE CO NTRASTon 04-22-2024 ECHO WITH AGITATED SALINE CONTRAST Normal [facility] Magnesium SerPl-mCncon 04-22 Magnesium [Mass/Vol] 2.0 mg/dL Normal 1.7-2.3 [facility] Comment on above: Order Comment: Speci men Type: BLOOD SPECIMENOrdering Facility: [facility] Address: [address] [place] [address] Performed By: #### 2 4321-2, 69477-3 ####[facility]ATORYCLIA [id number] [place] [address] [place] THERAPY NTon 04-22-[address] [facility] THERAPY NT Normal [facility] US DVT LOWER BILon US DVT LOWER TRACEE Normal [facility] ALLIED HEALTHon 04-21-[address] [facility] Basic metabolic 2000 panelon 04-21-2024 Anion gap [Moles/Vol] 14 mmol/L Normal 8-15 [facility] Comment on above: Order Comment: Speci men Type: BLOOD SPECIMENOrdering Facility: [facility] Address: [address] [place] [address] Performed By: #### 1 9123-9, 16468-8 ####[facility]ATORYCLIA [id number] [place] [address] [place] Calcium [Mass/Vol] 9.0 mg/dL Normal 8.5-10.2 [facility] Comment on above: Order Comment: Speci men Type: BLOOD SPECIMENOrdering Facility: [facility] Address: [address] [place] [address] Performed By: #### 1 9123-9, 03104-5 ####[facility]ATORYCLIA [id number] [place] [address] [place] Chloride [Moles/Vol] 106 mmol/L Normal 98-107 [facility] Comment on above: Order Comment: Speci men Type: BLOOD SPECIMENOrdering Facility: [facility] Address: [address] [place] [address] Performed By: #### 1 9123-9, 57199-5 ####[facility]ORYCLIA [id number] [place] [address] [place] CO2 [Moles/Vol] 21 mmol/L Low 22-30 [facility] Comment on above: Order Comment: Speci men Type: BLOOD SPECIMENOrdering Facility: [facility] Address: [address] [place] [address] Performed By: #### 1 9123-9, 38359-2 ####[facility]ATORYCLIA [id number] [place] [address] [place] Creatinine [Mass/Vol] 0.77 mg/dL Normal 0.58-0.96 [facility] Comment on above: Order Comment: Speci men Type: BLOOD SPECIMENOrdering Facility: [facility] Address: [address] [place] [address] Performed By: #### 1 9123-9, 54309-5 ####[facility]ATORYCLIA [id number] [address] OF [facility] Creatinine and Glomerular filtration rate.predicted panel (S/P/Bld) 84 mL/min/1.73m??? Normal >=60 [facility] Comment on above: Order Comment: Speci men Type: BLOOD SPECIMENOrdering Facility: [facility] Address: [address] [place] [address] Result Comment: Conchita mated Glomerular Filtration Rate (eGFR) is calculated using the 2020 CKD-EPI creatinine equation. This equation utilizes serum creatinine, sex, and age as parameters. The creatinine assay has traceable calibration to isotope dilution-mass spectrometry. Refer to KDIGO guidelines for clinical interpretation. In patients with unstable renal function, e.g. those with acute kidney injury, the eGFR may not accurately reflect actual GFR. Performed By: #### 1 9123-9, 21622-7 ####[facility]ATORYCLIA [id number] [place] [address] [place] Glucose [Mass/Vol] 91 mg/dL Normal 74-99 [facility] Comment on above: Order Comment: Speci men Type: BLOOD SPECIMENOrdering Facility: [facility] Address: [address] [place] [address] Result Comment: The [place] [employer] (ADA) provides guidance for cutoff values for fasting glucose and random glucose. The ADA defines fasting as no caloric intake for at least 8 hours. Fasting plasma glucose results between 100 to 125 mg/dL indicate increased risk for diabetes (prediabetes).Fasting plasma glucose results greater than or equal to 126 mg/dL meet the criteria for diagnosis of diabetes. In the absence of unequivocal hyperglycemia, results should be confirmed by repeat testing. In a patient with classic symptoms of hyperglycemia or hyperglycemic crisis, random plasma glucose results greater than or equal to 200 mg/dL meet the criteria for diagnosis of diabetes.Reference: Standards of Medical Care in Diabetes 2016, [place] [employer]. Diabetes Care. 2016.39(Suppl 1). Performed By: #### 1 9123-9, 56213-6 ####[facility]ATORYCLIA [id number] [place] [address] [place] Potassium [Moles/Vol] 3.9 mmol/L Normal 3.7-5.1 [facility] Comment on above: Order Comment: Speci men Type: BLOOD SPECIMENOrdering Facility: [facility] Address: [address] [place] [address] Performed By: #### 1 91239, 28987-2 ####[facility]ATORYCLIA [id number] [place] [address] [place] Sodium [Moles/Vol] 141 mmol/L Normal 136-144 [facility] Comment on above: Order Comment: Speci men Type: BLOOD SPECIMENOrdering Facility: [facility] Address: [address] [place] [address] Performed By: #### 1 91239, 74972-8 ####[facility]ATORYCLIA [id number] [place] [address] [place] Urea nitrogen [Mass/Vol] 16 mg/dL Normal 7-21 [facility] Comment on above: Order Comment: Speci men Type: BLOOD SPECIMENOrdering Facility: [facility] Address: [address] [place] [address] Performed By: #### 1 9123-9, 24480-8 ####[facility]ATORYCLIA [id number] [place] [address] [place] CASE MGT INIT SHIRLENEon 2023 CASE MGT INIT ASSES Normal [facility] CBC panel Auto (Bld)on 04-21 Erythrocyte distribution width (RBC) [Ratio] 12.5 % Normal 11.5-15.0 [facility] Comment on above: Order Comment: Speci men Type: BLOOD SPECIMENOrdering Facility: [facility] Address: [address] [place] [address] Performed By: #### 5 8410-2 ####[facility]ATORYCLIA [id number] [address] OF [facility] Hematocrit (Bld) [Volume fraction] 41.5 % Normal 36.0-46.0 [facility] Comment on above: Order Comment: Speci men Type: BLOOD SPECIMENOrdering Facility: [facility] Address: [address] [place] [address] Performed By: #### 5 8410-2 ####[facility]ATORYCLIA [id number] [address] OF [facility] Hemoglobin (Bld) [Mass/Vol] 13.9 g/dL Normal 11.5-15.5 [facility] Comment on above: Order Comment: Speci men Type: BLOOD SPECIMENOrdering Facility: [facility] Address: [address] [place] [address] Performed By: #### 5 8410-2 ####[facility]ORYCLIA [id number] [address] [place] MCH (RBC) [Entitic mass] 31.2 pg Normal 26.0-34.0 [facility] Comment on above: Order Comment: Speci men Type: BLOOD SPECIMENOrdering Facility: [facility] Address: [address] [place] [address] Performed By: #### 5 8410-2 ####[facility]ORYCLIA [id number] [address] [place] MCHC (RBC) [Mass/Vol] 33.5 g/dL Normal 30.5-36.0 [facility] Comment on above: Order Comment: Speci men Type: BLOOD SPECIMENOrdering Facility: [facility] Address: [address] [place] [address] Performed By: #### 5 8410-2 ####[facility]ORYCLIA [id number] [address] MCV (RBC) [Entitic vol] 93.0 fL Normal 80.0-100.0 [facility] Comment on above: Order Comment: Speci men Type: BLOOD SPECIMENOrdering Facility: [facility] Address: [address] [place] [address] Performed By: #### 5 8410-2 ####[facility]ORYCLIA [id number] [address] Nucleated RBC (Bld) [#/Vol] 10*3/uL Normal <0.01 [facility] Comment on above: Order Comment: Speci men Type: BLOOD SPECIMENOrdering Facility: [facility] Address: [address] [place] [address] Performed By: #### 5 8410-2 ####[facility]ATORYCLIA [id number] [address] STATES [facility] Platelet mean volume (Bld) [Entitic vol] 9.5 fL Normal 9.0-12.7 [facility] Comment on above: Order Comment: Speci men Type: BLOOD SPECIMENOrdering Facility: [facility] Address: [address] [place] [address] Performed By: #### 5 8410-2 ####[facility]ORYCLIA [id number] [address] Platelets (Bld) [#/Vol] 246 10*3/uL Normal 150-400 [facility] Comment on above: Order Comment: Speci men Type: BLOOD SPECIMENOrdering Facility: [facility] Address: [address] [place] [address] Performed By: #### 5 8410-2 ####[facility]ORYCLIA [id number] [address] [place] RBC (Bld) [#/Vol] 4.46 10*6/uL Normal 3.90-5.20 [facility] Comment on above: Order Comment: Speci men Type: BLOOD SPECIMENOrdering Facility: [facility] Address: [address] [place] [address] Performed By: #### 5 8410-2 ####[facility]ORYCLIA [id number] [place] [address] [place] [facility] WBC (Bld) [#/Vol] 7.57 10*3/uL Normal 3.70-11.00 [facility] Comment on above: Order Comment: Speci men Type: BLOOD SPECIMENOrdering Facility: [facility] Address: [address] [place] [address] Performed By: #### 5 8410-2 ####[facility]ORYCLIA [id number] [address] STATES OF [facility] CT BRAIN WO IVCONon 04-21-[address] BRAIN WO IVCON Normal [facility] ECG COMPLETEon 04-21-[address] [facility] HIGH SENSITIVITY TROPONIN To n 04-21-2024 Troponin T.cardiac High sensitivity method [Mass/Vol] 9 ng/L Normal <12 [facility] Comment on above: Order Comment: Speci men Type: BLOOD SPECIMENOrdering Facility: [facility] Address: [address] [place] [address] Performed By: #### H STNT ####[facility]ORYCLIA [id number] [address] [place] MRI BRAIN WO/W IVCONon 04-21 MRI BRAIN WO/W IVCON Normal [facility] Magnesium SerPl-mCncon 04-21 Magnesium [Mass/Vol] 2.0 mg/dL Normal 1.7-2.3 [facility] Comment on above: Order Comment: Speci men Type: BLOOD SPECIMENOrdering Facility: [facility] Address: [address] [place] [address] Performed By: #### 1 9123-9, 36654-8 ####[facility]ORYCLIA [id number] [address] [place] THERAPY NTon 04-21-[address] [facility] TSH SerPl-aCncon 04-21-2024 TSH Qn 1.910 m[IU]/L Normal 0.270-4.200 [facility] Comment on above: Order Comment: Speci men Type: BLOOD SPECIMENOrdering Facility: [facility] Address: [address] [place] [address] Performed By: #### 3 016-3 ####[facility]ATORYCLIA [id number] [place] [address] [place] Basic metabolic 2000 panelon 04-20-2024 Anion gap [Moles/Vol] 12 mmol/L Normal 8-15 [facility] Comment on above: Order Comment: Speci men Type: BLOOD SPECIMENOrdering Facility: [facility] Address: [address] [place] [address] Performed By: #### 1 9123-9, 28198-1, 2777-, 02023-9 ####[facility] [id number] [place] [address] [place] Calcium [Mass/Vol] 9.0 mg/dL Normal 8.5-10.2 [facility] Comment on above: Order Comment: Speci men Type: BLOOD SPECIMENOrdering Facility: [facility] Address: [address] [place] [address] Performed By: #### 1 9123-9, 15002-8, 2777-1, 56516-0 ####[facility]ATORYCLIA [id number] [address] [place] Chloride [Moles/Vol] 103 mmol/L Normal 98-107 [facility] Comment on above: Order Comment: Speci men Type: BLOOD SPECIMENOrdering Facility: [facility] Address: [address] [place] [address] Performed By: #### 1 9123-9, 66578-9, 2777-1, 91832-5 ####[facility]ATORYCLIA [id number] [place] [address] [place] CO2 [Moles/Vol] 24 mmol/L Normal 22-30 [facility] Comment on above: Order Comment: Speci peter Type: BLOOD SPECIMENOrdering Facility: [facility] Address: [address] [place] [address] Performed By: #### 1 9123-9, 19841-5, 27702-16, 90202-2 ####[facility]ITALIA [id number] [address] [place] Creatinine [Mass/Vol] 0.92 mg/dL Normal 0.58-0.96 [facility] Comment on above: Order Comment: Speci men Type: BLOOD SPECIMENOrdering Facility: [facility] Address: [address] [place] [address] Performed By: #### 1 9123-9, 97021-7, 2776-08, 44451-3 ####[facility] HOSPITALIA [id number] [address] Creatinine and Glomerular filtration rate.predicted panel (S/P/Bld) 68 mL/min/1.73m??? Normal >=60 [facility] Comment on above: Order Comment: Prince green Type: BLOOD SPECIMENOrdering Facility: [facility] Address: [address] [place] [address] Result Comment: Conchita mated Glomerular Filtration Rate (eGFR) is calculated using the 2020 CKD-EPI creatinine equation. This equation utilizes serum creatinine, sex, and age as parameters. The creatinine assay has traceable calibration to isotope dilution-mass spectrometry. Refer to KDIGO guidelines for clinical interpretation. In patients with unstable renal function, e.g. those with acute kidney injury, the eGFR may not accurately reflect actual GFR. Performed By: #### 1 9123-9, 03419-9, 27702-16, 50151-6 ####[facility]ITALIA [id number] [place] [id number] [place] Glucose [Mass/Vol] 94 mg/dL Normal 74-99 [facility] Comment on above: Order Comment: Speci men Type: BLOOD SPECIMENOrdering Facility: [facility] Address: [address] [place] [address] Result Comment: The [place] Diabetes Association (ADA) provides guidance for cutoff values for fasting glucose and random glucose. The ADA defines fasting as no caloric intake for at least 8 hours. Fasting plasma glucose results between 100 to 125 mg/dL indicate increased risk for diabetes (prediabetes).Fasting plasma glucose results greater than or equal to 126 mg/dL meet the criteria for diagnosis of diabetes. In the absence of unequivocal hyperglycemia, results should be confirmed by repeat testing. In a patient with classic symptoms of hyperglycemia or hyperglycemic crisis, random plasma glucose results greater than or equal to 200 mg/dL meet the criteria for diagnosis of diabetes.Reference: Standards of Medical Care in Diabetes 2016, [place] Diabetes Association. Diabetes Care. 2016.39(Suppl 1). Performed By: #### 1 9123-9, 21937-9, 2777-1, 59778-5 ####[facility]ATORYCLIA [id number] [place] [address] [place] Potassium [Moles/Vol] 3.6 mmol/L Low 3.7-5.1 [facility] Comment on above: Order Comment: Prince peter Type: BLOOD SPECIMENOrdering Facility: [facility] Address: [address] [place] [address] Performed By: #### 1 9123-9, 96856-7, 2777-1, 74085-9 ####[facility]ATORYCLIA [id number] [place] [address] [place] Sodium [Moles/Vol] 139 mmol/L Normal 136-144 [facility] Comment on above: Order Comment: Prince peter Type: BLOOD SPECIMENOrdering Facility: [facility] Address: [address] [place] [address] Performed By: #### 1 9123-9, 22364-6, 2777-1, 40482-1 ####[facility]ATORYCLIA [id number] [place] [address] [place] Urea nitrogen [Mass/Vol] 19 mg/dL Normal 7-21 [facility] Comment on above: Order Comment: Speci men Type: BLOOD SPECIMENOrdering Facility: [facility] Address: [address] [place] [address] Performed By: #### 1 9123-9, 23697-4, 2777-1, 99587-1 ####[facility]ATORYCLIA [id number] [address] STATES OF [facility] CBC panel Auto (Bld)on 04-20 Erythrocyte distribution width (RBC) [Ratio] 12.4 % Normal 11.5-15.0 [facility] Comment on above: Order Comment: Speci men Type: BLOOD SPECIMENOrdering Facility: [facility] Address: [address] [place] [address] Performed By: #### 5 8410-2 ####[facility]ORYCLIA [id number] [address] STATES OF [facility] Hematocrit (Bld) [Volume fraction] 40.2 % Normal 36.0-46.0 [facility] Comment on above: Order Comment: Speci men Type: BLOOD SPECIMENOrdering Facility: [facility] Address: [address] [place] [address] Performed By: #### 5 8410-2 ####[facility]ORYCLIA [id number] [address] [place] Hemoglobin (Bld) [Mass/Vol] 13.6 g/dL Normal 11.5-15.5 [facility] Comment on above: Order Comment: Speci men Type: BLOOD SPECIMENOrdering Facility: [facility] Address: [address] [place] [address] Performed By: #### 5 8410-2 ####[facility]ATORYCLIA [id number] [address] [place] MCH (RBC) [Entitic mass] 31.4 pg Normal 26.0-34.0 [facility] Comment on above: Order Comment: Speci men Type: BLOOD SPECIMENOrdering Facility: [facility] Address: [address] [place] [address] Performed By: #### 5 8410-2 ####[facility]ATORYCLIA [id number] [address] STATES [facility] MCHC (RBC) [Mass/Vol] 33.8 g/dL Normal 30.5-36.0 [facility] Comment on above: Order Comment: Speci men Type: BLOOD SPECIMENOrdering Facility: [facility] Address: [address] [place] [address] Performed By: #### 5 8410-2 ####[facility]ATORYCLIA [id number] [address] [place] MCV (RBC) [Entitic vol] 92.8 fL Normal 80.0-100.0 [facility] Comment on above: Order Comment: Speci men Type: BLOOD SPECIMENOrdering Facility: [facility] Address: [address] [place] [address] Performed By: #### 5 8410-2 ####[facility]ORYCLIA [id number] [address] Nucleated RBC (Bld) [#/Vol] 10*3/uL Normal <0.01 [facility] Comment on above: Order Comment: Speci men Type: BLOOD SPECIMENOrdering Facility: [facility] Address: [address] [place] [address] Performed By: #### 5 8410-2 ####[facility]ATORYCLIA [id number] [address] Platelet mean volume (Bld) [Entitic vol] 9.9 fL Normal 9.0-12.7 [facility] Comment on above: Order Comment: Speci men Type: BLOOD SPECIMENOrdering Facility: [facility] Address: [address] [place] [address] Performed By: #### 5 8410-2 ####[facility]ATORYCLIA [id number] [address] [place] Platelets (Bld) [#/Vol] 278 10*3/uL Normal 150-400 [facility] Comment on above: Order Comment: Speci men Type: BLOOD SPECIMENOrdering Facility: [facility] Address: [address] [place] [address] Performed By: #### 5 8410-2 ####[facility]ATORYCLIA [id number] [address] [place] RBC (Bld) [#/Vol] 4.33 10*6/uL Normal 3.90-5.20 [facility] Comment on above: Order Comment: Speci men Type: BLOOD SPECIMENOrdering Facility: [facility] Address: [address] [place] [address] Performed By: #### 5 8410-2 ####[facility]ATORYCLIA [id number] [address] [place] WBC (Bld) [#/Vol] 7.81 10*3/uL Normal 3.70-11.00 [facility] Comment on above: Order Comment: Speci men Type: BLOOD SPECIMENOrdering Facility: [facility] Address: [address] [place] [address] Performed By: #### 5 8410-2 ####[facility]ATORYCLIA [id number] [address] [place] CONSULTon 04-20-[address] [facility] CT BRAIN WO IVCONon 04-20-[address] BRAIN WO IVCON Normal [facility] HbA1c (Bld)on 04-20-2024 Average glucose Estimated from glycated hemoglobin (Bld) [Mass/Vol] 105 mg/dL Normal [facility] Comment on above: Order Comment: Speci men Type: BLOOD SPECIMENOrdering Facility: [facility] Address: [address] [place] [address] Result Comment: eAG: (Estimated average glucose) is a calculated value from HgbA1c and is operations representative of the average blood glucose level in the last 2-3 month period. Performed By: #### 5 5454-3 ####[facility] LABCLIA [id number] [facility] [id number] [address] [place] HbA1c (Bld) [Mass fraction] 5.3 % Normal 4.3-5.6 [facility] Comment on above: Order Comment: Speci men Type: BLOOD SPECIMENOrdering Facility: [facility] Address: [address] [place] [address] Result Comment: [place] Diabetes Association guidelines indicate that patients with HgbA1c in the range 5.7-6.4% are at increased risk for development of diabetes, and intervention by lifestyle modification may be beneficial. HgbA1c greater or equal to 6.5% is considered diagnostic of diabetes. Performed By: #### 5 5454-3 ####[facility] LABCLIA [id number] [facility] [id number] [place] [address] [place] Lipid 1996 panelon 4 Cholesterol [Mass/Vol] 129 mg/dL Normal <200 [facility] Comment on above: Order Comment: Speci men Type: BLOOD SPECIMENOrdering Facility: [facility] Address: [address] [place] [address] Result Comment: <200 mg/dL, Desirable 200-239 mg/dL, Borderline high>239 mg/dL, High Performed By: #### 1 9123-9, 44911-4, 2777-, 76085-6 ####[facility]ATORYCLIA [id number] [address] Cholesterol in HDL [Mass/Vol] 42 mg/dL Normal >39 [facility] Comment on above: Order Comment: Speci men Type: BLOOD SPECIMENOrdering Facility: [facility] Address: [address] [place] [address] Result Comment: 40-5 9 mg/dL, Acceptable>59 mg/dL, High: Negative risk factor for coronary heart disease<40 mg/dL, Low: Positive risk factor for coronary heart disease Performed By: #### 1 9123-9, 55121-4, 2777-1, 21908-9 ####[facility]ATORYCLIA [id number] [address] Cholesterol in LDL [Mass/Vol] 73 mg/dL Normal <100 [facility] Comment on above: Order Comment: Speci men Type: BLOOD SPECIMENOrdering Facility: [facility] Address: [address] [place] [address] Result Comment: <100 mg/dL, Optimal 100-129 mg/dL, Near optimal/above optimal 130-159 mg/dL, Borderline high 160-189 mg/dL, High>189 mg/dL, Very highSecondary prevention optimal LDL Cholesterol levels are recommended to be < 70 mg/dL Performed By: #### 1 9123-9, 80977-3, 2776-08, 33939-8 ####[facility]ATORYCLIA [id number] [place] [address] [place] Cholesterol in LDL/Cholesterol in HDL [Mass ratio] 1.74 {ratio} Normal <2.54 [facility] Comment on above: Order Comment: Speci men Type: BLOOD SPECIMENOrdering Facility: [facility] Address: [address] [place] [address] Result Comment: Yvette jones:1. National Cholesterol Education Program ATP III Guideline At-A-Glance Quick Desk Reference: National Heart, Lung, and Blood [place]. National Institutes of Health. 2001: NIH Publication No. 01-3305.2. An International Atherosclerosis Society position paper: global recommendations for the management of dyslipidemia: executive summary, Atherosclerosis. 2014: 232(2):410-413. Performed By: #### 1 9123-9, 19365-4, 2776-08, 91742-9 ####[facility]ATORYCLIA [id number] [place] [address] [place] Cholesterol in VLDL [Mass/Vol] 14 mg/dL Normal <30 [facility] Comment on above: Order Comment: Speci men Type: BLOOD SPECIMENOrdering Facility: [facility] Address: [address] [place] [address] Performed By: #### 1 9123-9, 65699-7, 2776-08, 44227-7 ####[facility]ORATORYCLIA [id number] [place] [address] [place] Cholesterol non HDL [Mass/Vol] 87 mg/dL Normal <130 [facility] Comment on above: Order Comment: Speci men Type: BLOOD SPECIMENOrdering Facility: [facility] Address: [address] [place] [address] Result Comment: <130 mg/dL, Optimal 130-159 mg/dL, Near optimal/above optimal 160-189 mg/dL, Borderline high 190-219 mg/dL, High>219 mg/dL, Very highSecondary prevention optimal non HDL Cholesterol levels are recommended to be <100 mg/dL Performed By: #### 1 9123-9, 44047-6, 277-, 01293-9 ####[facility]ATORYCLIA [id number] [address] Cholesterol.total/Chol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 all the way to [place] and then back just prior to 2020. Experienced an acute right lower back pain and right sided sciatica. Although she had similar but less severe episodes in the past, this by far was the worst she ever experienced. She was seen in [facility] emergency room and plain x-rays of the lumbosacral spine showed no acute fracture, mild degenerative changes, and possible right sacrum/iliac bone lesions. July 26, 2021 bone scan: IMPRESSION: 1. The increase in tracer distribution defined in the left knee, left wrist, bilateral shoulders, fifth lumbar vertebra is most consistent with degenerative arthritis. 2. Meticulous attention paid to the distribution of the sacrum and right iliac bone demonstrate no evidence of abnormal increased tracer uptake on the present examination. No typical scintigraphic evidence of diffuse axial skeletal metastatic disease is identified. Treatment summary: April 28, 2020 partial mastectomy with sentinel lymph node biopsy. June 15, 2020 -August 31, 2020: 12 weekly treatments with adjuvant Taxol Herceptin. September 21, 2020 March 29, 2021 adjuvant Herceptin. Treatment was discontinued when the patient became acutely ill with COVID-19 and had a protracted recovery. October-December 2020 adjuvant Arimidex, stopped due to musculoskeletal pains. January 2021 exemestane (better tolerated)- Adjuvant radiation: 4256 cGy of mixed 6 and 10 MV photons in 16 fractions to the right breast with a 3D conformal. A sequential boost consisting of 1000 cGy of mixed 6 and 10 MV photons in 5 fractions was delivered to the lumpectomy cavity with a 3D conformal technique. Date of First Treatment: 09/26/2020 Date of Last Treatment: 10/27/2020 Interval History The patient is presenting to clinic for a one week follow up to review diagnostic mammogram and right breast ultrasound obtained 03/30/2024 to address complaints of new right breast pain. She denies any changes to the pain since her last office visit exam. [facility] Medical History Wears glasses Marijuana use Ambulates with cane Dietary restriction Left breast lump ER+ (estrogen receptor positive status) Alcohol use Arthritis Easy bruising PONV (postoperative nausea and vomiting) Gastric reflux Non-smok (more content not included)... Normal [facility] Breast Limited Unilateralon 03-30-2024 Breast Limited Unilateral [facility] [address] [place], [place] [id number] Breast Limited Unilateral MR#: [id number] Acct: [id number] Name: BO MONTEIRO Rep #: [id number] : 1955 F 68 From: Chandu avery MD PCP: KEYA Reaves Status: [facility] CLI Study: Breast Limited Unilateral Date of Exam: Exam# [id number] Ordering Dr: Verónica Lopez NP [facility] -C [id number] STUDY: ULTRASOUND BREAST - RIGHT REASON FOR EXAM: Female, 68 years old. Right breast tenderness. Patient status post right lumpectomy with radiation and chemotherapy. TECHNIQUE: Axial and longitudinal images of the RIGHT breast were performed with a high resolution ultrasound transducer. # OF IMAGES: 41 COMPARISON: Comparison is made with the prior mammogram done earlier today as well as prior ultrasound of the left breast dated February 26, 2023. FINDINGS: RIGHT Breast: The upper medial aspect of the right breast was examined with ultrasound. There is a persistent hypoechoic irregular density at the site of the surgery measuring 1.8 cm x 2 cm x 1.5 cm. Surgical clips are seen adjacent to this finding suggestive of postoperative scarring at the lumpectomy site. US/Breast Limited Unilateral IMPRESSION: The upper inner quadrant of the right breast was examined with ultrasound. Findings suggestive of postoperative changes secondary to the lumpectomy. ASSESSMENT CATEGORY: BIRADS Category 2: Benign. A letter regarding these results will be sent to the patient by the facility within 30 days. Electronically Signed: Chandu Dean MD at 8:48 EDT , CC: KEYA Dias; KEYA Lopez Glass Melt Operator: Signed Normal [facility] DIAG MAMM W/CAD, UNILATon DIAG MAMM W/CAD, [facility] [address] [place] [address] DIAG MAMM W/CAD, UNIL MR#: [id number] Acct: [id number] Name: BO MONTEIRO Rep #: [id number] : 1955 F 68 From: Chandu avery MD PCP: KEYA Reaves Status: [facility] Study: DIAG MAMM W/CAD, UNILAT Date of Exam: 03/30/24 Exam# [id number] Ordering Dr: Verónica Lopez NP, NP [id number] MAMMOGRAPHY - UNILATERAL DIAGNOSTIC: RIGHT BREAST REASON FOR EXAM: Female, 68 years old. Prior right lumpectomy with chemotherapy and radiation therapy. Remote right excisional breast biopsy. Right breast pain. PERTINENT HISTORY: Personal history of breast cancer. TECHNIQUE: Digital unilateral breast aquiles (3D mammographic acquisition) in the CC and MLO projections. 2-D mediolateral oblique (MLO) and craniocaudad (CC) views of both breasts were obtained. CAD: Full Field Digital Mammography with Computer Added Detection was performed. COMPARISON: Comparison is made with prior study dated November 04, 2023. FINDINGS: Breast Composition: The breasts are heterogeneously dense, which may obscure small masses. There are no dominant masses or suspicious calcifications. Once again, the patient is status post lumpectomy in the slightly inferior medial aspect of the right breast with resultant postoperative scarring in the overlying skin thickening and deformity. There has been no change. Surgical clip is seen in the right axilla. No other significant abnormalities are identified. There has been no significant change since the prior study. BI/DIAG MAMM W/CAD, UNILAT IMPRESSION: Stable unilateral diagnostic mammogram. With the patient''s history of right breast pain, correlation with ultrasound is recommended. ASSESSMENT CATEGORY: BIRADS Category 0: Incomplete. Need additional imaging evaluation. A letter regarding these results will be sent to the patient by the facility within 30 days. Approximately 10% of breast cancers are not detected by mammography. A normal mammogram should not delay biopsy of a clinically suspicious abnormality. Electronically Signed: Chandu Dean MD at 9:49 EDT Reading Location ID and State: [address] [place] [address] , Service support , CC: KEYA Dias; KEYA Lopez Glass Melt Operator: Signed Normal [facility] Oncology Visit Reporton Oncology Visit Report [facility] [address] [place], [place] [address]all [facility] 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 After skipping 2019 screening mammographies she felt a painless lump in the right breast and a diagnostic mammogram followed by a biopsy confirmed malignancy. April 28, 2020 she underwent a partial mastectomy with sentinel lymph node biopsy. Her work-up and surgery were done at [facility], she was then seen by medical oncology at [facility] with the recommendation of an adjuvant course of chemo immune therapy (ACTH/TCH) . She then went for a second opinion at [facility] were adjuvant chemoradiotherapy (TH) again recommended. She eventually made the decision to receive her treatment at [facility] close to home. CT chest June 07, 2020:* FINDINGS: Surgical clips are seen in the right axillary region. Postoperative changes are seen within the deep central portion of the right breast including but the history of prior lumpectomy. Small benign-appearing bilateral axillary lymph nodes. Mild degree of emphysematous changes. Minimal increased markings at the right lung base suggestive of past or atelectasis. There is no demonstrated pleural abnormality. Normal heart and pericardium. There are multiple small lymph nodes within the mediastinum, which are normal in size and morphology most compatible with reactive lymph hyperplasia. Normal hilar regions. Normal enhanced pulmonary arteries. Normal aorta arch and descending thoracic aorta. There are multi-level degenerative changes of the thoracic spine. Multiple cysts are seen in the liver of varying sizes. IMPRESSION: Mild degree of right basilar atelectasis. Status post right lumpectomy and right axillary node dissection. Multiple hepatic cysts. *These images were reviewed with Drs. Kong and Theodore and a mildly subcentimeter right internal mammary lymph node was noted could not be further characterized. This node will be included in the adjuvant radiation field. Patient drove all the way to [place] and then back just prior to 2020. Experienced an acute right lower back pain and right sided sciatica. Although she had similar but less severe episodes in the past, this by far was the worst she ever experienced. She was seen in [facility] emergency room and plain x-rays of the lumbosacral spine showed no acute fracture, mild degenerative changes, and possible right sacrum/iliac bone lesions. July 26, 2021 bone scan: IMPRESSION: 1. The increase in tracer distribution defined in the left knee, left wrist, bilateral shoulders, fifth lumbar vertebra is most consistent with degenerative arthritis. 2. Meticulous attention paid to the distribution of the sacrum and right iliac bone demonstrate no evidence of abnormal increased tracer uptake on the present examination. No typical scintigraphic evidence of diffuse axial skeletal metastatic disease is identified. Treatment summary: April 28, 2020 partial mastectomy with sentinel lymph node biopsy. June 15, 2020 -August 31, 2020: 12 weekly treatments with adjuvant Taxol Herceptin. September 21, 2020 March 29, 2021 adjuvant Herceptin. Treatment was discontinued when the patient became acutely ill with COVID-19 and had a protracted recovery. October-December 2020 adjuvant Arimidex, stopped due to musculoskeletal pains. January 2021 exemestane (better tolerated)- Adjuvant radiation: 4256 cGy of mixed 6 and 10 MV photons in 16 fractions to the right breast with a 3D conformal. A sequential boost consisting of 1000 cGy of mixed 6 and 10 MV photons in 5 fractions was delivered to the lumpectomy cavity with a 3D conformal technique. Date of First Treatment: 09/26/2020 Date of Last Treatment: 10/27/2020 Interval History The patient is presenting to clinic for a planned 6 month follow up. She reports good tolerance and good adherence to exemestane at this time. Takes at HS. Concerns today include right breast pain. Reports tenderness associated with a lump in the right breast pain x several months. She has noted tenderness during bathing/dressing and incidentally when someone hugs me. Pain is not changing and lump has also not changed. + Joint stiffness, generalized and hot flashes. Tolerable. [facility] Medical History Wears glasses Marijuana use Ambulates (more content not included)... Normal [facility] Absolute lymphocyte countOrd ered By: Markos Chacon on 12-12-2023 Lymphocytes Auto (Unsp spec) [#/Vol] 1.24 10*3/uL 0.83-4.51 [facility] Automated lymphocyte count a s percentage of total leukocytesOrdered By: Markos Chacon on 12-12-2023 Lymphocytes/100 WBC Auto (Unsp spec) 17.5 % 19-41 [facility] Basophil percentageOrdered B y: Markos Chacon on 12-12-2023 Basophils/100 WBC (Bld) 1.1 % 0-1 [facility] Chloride [Moles/Vol] 105 mmol/L 98-107 [facility] Eosinophils/100 WBC (Bld) 3.0 % 0-5 [facility] Glucose [Mass/Vol] 90 mg/dL 74-106 [facility] Hemoglobin (Bld) [Mass/Vol] 14.8 g/dL 12.0-15.0 [facility] Monocytes/100 WBC (Bld) 9.9 % 0-10 [facility] Neutrophils (Bld) [#/Vol] 4.8 10*3/uL 2.0-7.7 [facility] Neutrophils/100 WBC (Bld) 68.1 % 47-70 [facility] Potassium [Moles/Vol] 3.7 mmol/L 3.5-5.1 [facility] Sodium [Moles/Vol] 141 mmol/L 136-145 [facility] WBC (Bld) [#/Vol] 7.1 10*3/uL 4.4-11.0 [facility] Determination of erythrocyte mean corpuscular volume (MCV)Ordered By: Markos Chacon on 12-12-2023 MCV (RBC) [Entitic vol] 92.4 fL 81-99 [facility] Erythrocyte distribution wid th ratioOrdered By: Markos Chacon on 12-12-2023 Erythrocyte distribution width (RBC) [Ratio] 12.9 % 11.6-14.6 [facility] Erythrocyte distribution wid th standard deviationOrdered By: Markos Chacon on 12-12-2023 Erythrocyte distribution width (RBC) [Entitic vol] 43.8 fL 35.1-43.9 [facility] Hematocrit Auto (Bld) [Volum e fraction]Ordered By: Markos Chacon on 12-12-2023 Hematocrit (Bld) [Volume fraction] 43.8 % 37-47 [facility] Immature granulocytes/100 WB C Auto (Bld)Ordered By: Markos Chacon on 12-12-2023 Immature granulocytes/100 WBC (Bld) 0.400 % 0.0-0.9 [facility] Comment on above: IG% - Immature Granu locytes (promyelocytes, myelocytes and metamyelocytes) > 1% indicates that a LEFT SHIFT is Present. Laboratory - Chemistry and C hemistry - challengeOrdered By: Markos Chacon on 12-12-2023 CO2 [Moles/Vol] 28.0 mmol/L 21.0-32.0 [facility] Urea nitrogen/Creatinine [Mass ratio] 26.9 mg/mg 10-20 [facility] Laboratory - Hematology and Cell countsOrdered By: Markos Chacon on 12-12-2023 MCH (RBC) [Entitic mass] 31.2 pg 27.0-32.0 [facility] MCHC (RBC) [Mass/Vol] 33.8 g/dL 32-36 [facility] Nucleated RBC/100 WBC (Bld) [Ratio] 0 % 0-5 [facility] Platelet mean volume (Bld) [Entitic vol] 9.5 fL 6.2-12.0 [facility] Platelets (Bld) [#/Vol] 268 10*3/uL 150-450 [facility] Laboratory - Microbiology an d Antimicrobial susceptibilityOrdered By: Markos Chacon on 12-12-2023 SARS-CoV-2 (COVID-19) RNA KRISTOFER+probe Ql (Unsp spec) [facility] No Panel InformationOrdered By: Markos Chacon on 12-12-2023 D-Dimer Quantitative (PE/DVT) 0.38 FEU/ug/m 0.27-0.49 [facility] Comment on above: NORMAL D-Dimer level (<0.50) indicates no DVT or PE. Estimated Creatinine Clearance Calc 53.23 ml/min [facility] Estimated GFR (MDRD) Amer 73 mL/min >60 [facility] Comment on above: GFR Calc Estimated GFR (MDRD) Non-Af Amer 61 mL/min >60 [facility] Comment on above: Non- GFR Calc Troponin I High Sensitivity 4 pg/mL 3.0-54.0 [facility] Comment on above: Please Note: New [place] t Units and Gender Specific Reference Ranges. For more information see Policy Stat Procedure [place] High Sensitivity Troponin (TNIH) and attachments. RBC Auto (Bld) [#/Vol]Ordere d By: Markos Chacon on 12-12-2023 RBC (Bld) [#/Vol] 4.74 10*6/uL 4.2-5.4 [facility] Serum or plasma calcium giovany urement (mass/volume)Ordered By: Markos Chacon on 12-12-2023 Calcium [Mass/Vol] 9.2 mg/dL 8.5-10.1 [facility] Serum or plasma creatinine m easurement (mass/volume)Ordered By: Markos Chacon on 12-12-2023 Creatinine [Mass/Vol] 0.97 mg/dL 0.55-1.02 [facility] Comment on above: The validity of the calculated GFR & GFRAA in patients over 70 years has not been determined. Clinical correlation is essential. Serum or plasma urea nitroge n measurement (mass/volume)Ordered By: Markos Chacon on 12-12-2023 Urea nitrogen [Mass/Vol] 26 mg/dL 7-18 [facility] Thin prep Papanicolaou smear with manual screeningOrdered By: Markos Chacon on 12-12-2023 Thin prep Papanicolaou smear with manual screening 8 5-15 [facility] Absolute lymphocyte countOrd ered By: Verónica Lopez on 09-23-2023 Lymphocytes Auto (Unsp spec) [#/Vol] 1.39 10*3/uL 0.83-4.51 [facility] Automated lymphocyte count a s percentage of total leukocytesOrdered By: Verónica Lopez on 09-23-2023 Lymphocytes/100 WBC Auto (Unsp spec) 20.7 % 19-41 [facility] Basophil percentageOrdered B y: Verónica Lopez on 09-23-2023 Basophils/100 WBC (Bld) 1.2 % 0-1 [facility] Bilirubin [Mass/Vol] 0.70 mg/dL 0.20-1.00 [facility] Comment on above: For patients on eltr ombopag therapy, use of Dimension [place] TBIL is not recommended. Chloride [Moles/Vol] 109 mmol/L 98-107 [facility] Eosinophils/100 WBC (Bld) 3.4 % 0-5 [facility] Glucose [Mass/Vol] 97 mg/dL 74-106 [facility] Hemoglobin (Bld) [Mass/Vol] 14.9 g/dL 12.0-15.0 [facility] Monocytes/100 WBC (Bld) 8.2 % 0-10 [facility] Neutrophils (Bld) [#/Vol] 4.4 10*3/uL 2.0-7.7 [facility] Neutrophils/100 WBC (Bld) 66.1 % 47-70 [facility] Potassium [Moles/Vol] 3.7 mmol/L 3.5-5.1 [facility] Protein [Mass/Vol] 7.5 g/dL 6.4-8.2 [facility] Sodium [Moles/Vol] 140 mmol/L 136-145 [facility] WBC (Bld) [#/Vol] 6.7 10*3/uL 4.4-11.0 [facility] Determination of erythrocyte mean corpuscular volume (MCV)Ordered By: Verónica Lopez on 09-23-2023 MCV (RBC) [Entitic vol] 92.2 fL 81-99 [facility] Erythrocyte distribution wid th ratioOrdered By: Verónica Lopez on 09-23-2023 Erythrocyte distribution width (RBC) [Ratio] 12.4 % 11.6-14.6 [facility] Erythrocyte distribution wid th standard deviationOrdered By: Verónica Lopez on 09-23-2023 Erythrocyte distribution width (RBC) [Entitic vol] 41.4 fL 35.1-43.9 [facility] Hematocrit Auto (Bld) [Volum e fraction]Ordered By: Verónica Lopez on 09-23-2023 Hematocrit (Bld) [Volume fraction] 44.7 % 37-47 [facility] Immature granulocytes/100 WB C Auto (Bld)Ordered By: Verónica Lopez on 09-23-2023 Immature granulocytes/100 WBC (Bld) 0.400 % 0.0-0.9 [facility] Comment on above: IG% - Immature Granu locytes (promyelocytes, myelocytes and metamyelocytes) > 1% indicates that a LEFT SHIFT is Present. Laboratory - Chemistry and C hemistry - challengeOrdered By: Verónica Lopez on 09-23-2023 Albumin/Globulin [Mass ratio] 1.1 {ratio} 0.9-2.4 [facility] ALP [Catalytic activity/Vol] 137 U/L 45-117 [facility] ALT [Catalytic activity/Vol] 29 U/L 13-56 [facility] CO2 [Moles/Vol] 27.0 mmol/L 21.0-32.0 [facility] Globulin (S) [Mass/Vol] 3.5 g/dL 2.2-4.2 [facility] Urea nitrogen/Creatinine [Mass ratio] 13.6 mg/mg 10-20 [facility] Laboratory - Hematology and Cell countsOrdered By: Verónica Lopez on 09-23-2023 MCH (RBC) [Entitic mass] 30.7 pg 27.0-32.0 [facility] MCHC (RBC) [Mass/Vol] 33.3 g/dL 32-36 [facility] Nucleated RBC/100 WBC (Bld) [Ratio] 0 % 0-5 [facility] Platelets (Bld) [#/Vol] 293 10*3/uL 150-450 [facility] No Panel InformationOrdered By: Verónica Lopez on 09-23-2023 Estimated Creatinine Clearance Calc 49.72 ml/min [facility] Estimated GFR (MDRD) Amer 58 mL/min >60 [facility] Comment on above: GFR Calc Estimated GFR (MDRD) Non-Af Amer 48 mL/min >60 [facility] Comment on above: Non- GFR Calc Platelet mean volume Doug-Ec ker (Bld) [Entitic vol]Ordered By: Verónica Lopez on 09-23-2023 Platelet mean volume (Bld) [Entitic vol] 9.7 fL 6.2-12.0 [facility] RBC Auto (Bld) [#/Vol]Ordere d By: Verónica Lopez on 09-23-2023 RBC (Bld) [#/Vol] 4.85 10*6/uL 4.2-5.4 [facility] Serum or plasma calcium giovany urement (mass/volume)Ordered By: Verónica Lopez on 09-23-2023 Calcium [Mass/Vol] 9.8 mg/dL 8.5-10.1 [facility] Serum or plasma creatinine m easurement (mass/volume)Ordered By: Verónica Lopez on 09-23-2023 Creatinine [Mass/Vol] 1.18 mg/dL 0.55-1.02 [facility] Comment on above: The validity of the calculated GFR & GFRAA in patients over 70 years has not been determined. Clinical correlation is essential. Serum or plasma urea nitroge n measurement (mass/volume)Ordered By: Verónica Lopez on 09-23-2023 Urea nitrogen [Mass/Vol] 16 mg/dL 7-18 [facility] Thin prep Papanicolaou smear with manual screeningOrdered By: Verónicaaruna Lopez on 09-23-2023 Thin prep Papanicolaou smear with manual screening 4.0 g/dL 3.2-5.0 [facility] Thin prep Papanicolaou smear with manual screening 16 U/L 15-37 [facility] Thin prep Papanicolaou smear with manual screening 4 5-15 [facility] Basophil percentageOrdered B y: Ashli Rosado on 08-26-2023 Chloride [Moles/Vol] 105 mmol/L 98-107 [facility] Glucose [Mass/Vol] 83 mg/dL 74-106 [facility] Potassium [Moles/Vol] 3.8 mmol/L 3.5-5.1 [facility] Sodium [Moles/Vol] 140 mmol/L 136-145 [facility] Laboratory - Chemistry and C hemistry - challengeOrdered By: Ashli Rosado on 08-26-2023 CO2 [Moles/Vol] 30.0 mmol/L 21.0-32.0 [facility] Urea nitrogen/Creatinine [Mass ratio] 23.3 mg/mg 10-20 [facility] No Panel InformationOrdered By: Ashli Rosado on 08-26-2023 Estimated GFR (MDRD) Amer 60 mL/min >60 [facility] Comment on above: GFR Calc Estimated GFR (MDRD) Non-Af Amer 49 mL/min >60 [facility] Comment on above: Non- GFR Calc Serum or plasma calcium giovany urement (mass/volume)Ordered By: Ashli Rosado on 08-26-2023 Calcium [Mass/Vol] 9.7 mg/dL 8.5-10.1 [facility] Serum or plasma creatinine m easurement (mass/volume)Ordered By: Ashli Rosado on 08-26-2023 Creatinine [Mass/Vol] 1.16 mg/dL 0.55-1.02 [facility] Comment on above: The validity of the calculated GFR & GFRAA in patients over 70 years has not been determined. Clinical correlation is essential. Serum or plasma urea nitroge n measurement (mass/volume)Ordered By: Ashli Rosado on 08-26-2023 Urea nitrogen [Mass/Vol] 27 mg/dL 7-18 [facility] Thin prep Papanicolaou smear with manual screeningOrdered By: Ashli Rosado on 08-26-2023 Thin prep Papanicolaou smear with manual screening 5 5-15 [facility] Absolute lymphocyte countOrd ered By: Loan Dias on 07-29-2023 Lymphocytes Auto (Unsp spec) [#/Vol] 2.14 10*3/uL 0.83-4.51 [facility] Basophil percentageOrdered B y: Loan Dias on 07-29-2023 Basophils/100 WBC (Bld) 1.0 % 0-1 [facility] Bilirubin [Mass/Vol] 0.60 mg/dL 0.20-1.00 [facility] Comment on above: For patients on eltr ombopag therapy, use of Dimension [place] TBIL is not recommended. Chloride [Moles/Vol] 105 mmol/L 98-107 [facility] Cholesterol [Mass/Vol] 196 mg/dL <200 [facility] Comment on above: <200 mg/dL Desirable 200-240 mg/dL Borderline >240 mg/dL High Risk Eosinophils/100 WBC (Bld) 2.3 % 0-5 [facility] Glucose [Mass/Vol] 98 mg/dL 74-106 [facility] Neutrophils (Bld) [#/Vol] 4.5 10*3/uL 2.0-7.7 [facility] Neutrophils/100 WBC (Bld) 59.2 % 47-70 [facility] Potassium [Moles/Vol] 3.8 mmol/L 3.5-5.1 [facility] Protein [Mass/Vol] 7.7 g/dL 6.4-8.2 [facility] Sodium [Moles/Vol] 139 mmol/L 136-145 [facility] Triglyceride [Mass/Vol] 128 mg/dL <199 [facility] Comment on above: The drugs N-Acetylcy steine and Metamizole may falsely depress this assay.Serum Triglycerides Reference Interval Normal <150 mg/dL Borderline high 150 - 199 mg/dL High 200 - 499 mg/dL Very High > or = 500 mg/dL WBC (Bld) [#/Vol] 7.7 10*3/uL 4.4-11.0 [facility] Blood erythrocytes count (nu mber/volume)Ordered By: Loan Dias on 07-29-2023 RBC (Bld) [#/Vol] 5.29 10*6/uL 4.2-5.4 [facility] Blood hemoglobin measurement (mass/volume)Ordered By: Loan Dias on 07-29-2023 Hemoglobin (Bld) [Mass/Vol] 16.2 g/dL 12.0-15.0 [facility] Blood lymphocytes/100 leukoc ytesOrdered By: Loan Dias on 07-29-2023 Lymphocytes/100 WBC (Bld) 27.9 % 19-41 [facility] Blood monocytes/100 leukocyt esOrdered By: Loan Dias on 07-29-2023 Monocytes/100 WBC (Bld) 9.1 % 0-10 [facility] Blood platelet mean volumeOr dered By: Loan Dias on 07-29-2023 Platelet mean volume (Bld) [Entitic vol] 9.7 fL 6.2-12.0 [facility] Determination of erythrocyte mean corpuscular volume (MCV)Ordered By: Loan Dias on 07-29-2023 MCV (RBC) [Entitic vol] 93.6 fL 81-99 [facility] Hematocrit Auto (Bld) [Volum e fraction]Ordered By: Loan Dias on 07-29-2023 Hematocrit (Bld) [Volume fraction] 49.5 % 37-47 [facility] Laboratory - Chemistry and C hemistry - challengeOrdered By: Loan Dias on 07-29-2023 ALP [Catalytic activity/Vol] 131 U/L 45-117 [facility] ALT [Catalytic activity/Vol] 60 U/L 13-56 [facility] CO2 [Moles/Vol] 27.0 mmol/L 21.0-32.0 [facility] Globulin (S) [Mass/Vol] 3.4 g/dL 2.2-4.2 [facility] Urea nitrogen/Creatinine [Mass ratio] 13.9 mg/mg 10-20 [facility] Laboratory - Hematology and Cell countsOrdered By: Loan Dias on 07-29-2023 Erythrocyte distribution width (RBC) [Entitic vol] 45.1 fL 35.1-43.9 [facility] Erythrocyte distribution width (RBC) [Ratio] 13.2 % 11.6-14.6 [facility] Immature granulocytes/100 WBC (Bld) 0.500 % 0.0-0.9 [facility] Comment on above: IG% - Immature Granu locytes (promyelocytes, myelocytes and metamyelocytes) > 1% indicates that a LEFT SHIFT is Present. MCH (RBC) [Entitic mass] 30.6 pg 27.0-32.0 [facility] Nucleated RBC/100 WBC (Bld) [Ratio] 0 % 0-5 [facility] MCHC Auto (RBC) [Mass/Vol]Or dered By: Loan Dias on 07-29-2023 MCHC (RBC) [Mass/Vol] 32.7 g/dL 32-36 [facility] No Panel InformationOrdered By: Loan Dias on 07-29-2023 Estimated GFR (MDRD) Amer 70 mL/min >60 [facility] Comment on above: GFR Calc Estimated GFR (MDRD) Non-Af Amer 58 mL/min >60 [facility] Comment on above: Non- GFR Calc Thyroid Stimulating Hormone (TSH) 3.71 uIU/mL 0.358-3.74 [facility] Platelets bldOrdered By: Cirilo Dias on 07-29-2023 Platelets (Bld) [#/Vol] 361 10*3/uL 150-450 [facility] Serum or plasma albumin giovany urement (mass/volume)Ordered By: Loan Dias on 07-29-2023 Albumin [Mass/Vol] 4.3 g/dL 3.2-5.0 [facility] Serum or plasma albumin/glob ulin mass ratioOrdered By: Loan Dias on 07-29-2023 Albumin/Globulin [Mass ratio] 1.3 {ratio} 0.9-2.4 [facility] Serum or plasma calcium giovany urement (mass/volume)Ordered By: Loan Dias on 07-29-2023 Calcium [Mass/Vol] 9.9 mg/dL 8.5-10.1 [facility] Serum or plasma cholesterol in HDL measurement (mass/volume)Ordered By: Loan Dias on 07-29-2023 Cholesterol in HDL [Mass/Vol] 52 mg/dL >40 [facility] Comment on above: The drugs N-Acetylcy steine and Metamizole may falsely depress this assay. Reference Range HDL <40 mg/dL Low HDL Cholesterol HDL >or= 60 mg/dL High HDL Cholesterol Serum or plasma cholesterol in VLDL measurement (mass/volume)Ordered By: Loan Dias on 07-29-2023 Cholesterol in VLDL [Mass/Vol] 26 mg/dL 5-40 [facility] Serum or plasma creatinine m easurement (mass/volume)Ordered By: Loan Dias on 07-29-2023 Creatinine [Mass/Vol] 1.01 mg/dL 0.55-1.02 [facility] Comment on above: The validity of the calculated GFR & GFRAA in patients over 70 years has not been determined. Clinical correlation is essential. Serum or plasma low density lipoprotein (LDL) cholesterol measurement (mass/volume)Ordered By: Loan Dias on 07-29-2023 Cholesterol in LDL [Mass/Vol] 118 mg/dL 0-130 [facility] Serum or plasma urea nitroge n measurement (mass/volume)Ordered By: Loan Dias on 07-29-2023 Urea nitrogen [Mass/Vol] 14 mg/dL 7-18 [facility] Thin prep Papanicolaou smear with manual screeningOrdered By: Loan Dias on 07-29-2023 Thin prep Papanicolaou smear with manual screening 33 U/L 15-37 [facility] Thin prep Papanicolaou smear with manual screening 7 5-15 [facility] Basophil percentageOrdered B y: Dia Tobin on 03-14-2023 Creatinine [Mass/Vol] 1.2 mg/dL 0.55-1.02 [facility] Laboratory - Chemistry and C hemistry - challengeOrdered By: Dia Tobin on 03-14-2023 GFR/1.73 sq M.predicted among non-blacks MDRD (S/P/Bld) [Vol rate/Area] 49.0000 mL/min/{1.73_m2} >60 [facility] Absolute lymphocyte countOrd ered By: Verónica Lopez on 11-05-2022 Lymphocytes Auto (Unsp spec) [#/Vol] 1.50 10*3/uL 0.83-4.51 [facility] Basophil percentageOrdered B y: Verónica Lopez on 11-05-2022 Basophils/100 WBC (Bld) 0.9 % 0-1 [facility] Bilirubin [Mass/Vol] 0.40 mg/dL 0.20-1.00 [facility] Comment on above: For patients on eltr ombopag therapy, use of Dimension [place] TBIL is not recommended. Chloride [Moles/Vol] 108 mmol/L 98-107 [facility] Eosinophils/100 WBC (Bld) 2.5 % 0-5 [facility] Glucose [Mass/Vol] 104 mg/dL 74-106 [facility] Comment on above: Fasting Glucose resu lt from 100 to 125 mg/dL suggests IMPAIRED HOMEOSTASIS per A.D.A. criteria. Neutrophils (Bld) [#/Vol] 4.5 10*3/uL 2.0-7.7 [facility] Neutrophils/100 WBC (Bld) 66.8 % 47-70 [facility] Potassium [Moles/Vol] 3.8 mmol/L 3.5-5.1 [facility] Protein [Mass/Vol] 7.4 g/dL 6.4-8.2 [facility] Sodium [Moles/Vol] 143 mmol/L 136-145 [facility] WBC (Bld) [#/Vol] 6.8 10*3/uL 4.4-11.0 [facility] Blood erythrocytes count (nu mber/volume)Ordered By: Verónica Lopez on 11-05-2022 RBC (Bld) [#/Vol] 5.04 10*6/uL 4.2-5.4 [facility] Blood hemoglobin measurement (mass/volume)Ordered By: Verónica Lopez on 11-05-2022 Hemoglobin (Bld) [Mass/Vol] 15.5 g/dL 12.0-15.0 [facility] Blood lymphocytes/100 leukoc ytesOrdered By: Verónica John on 11-05-2022 Lymphocytes/100 WBC (Bld) 22.2 % 19-41 [facility] Blood monocytes/100 leukocyt esOrdered By: Verónica Lopez on 11-05-2022 Monocytes/100 WBC (Bld) 7.0 % 0-10 [facility] Blood platelet mean volumeOr dered By: Verónica Lopez on 11-05-2022 Platelet mean volume (Bld) [Entitic vol] 9.3 fL 6.2-12.0 [facility] Determination of erythrocyte mean corpuscular volume (MCV)Ordered By: Verónica Lopez on 11-05-2022 MCV (RBC) [Entitic vol] 93.5 fL 81-99 [facility] Hematocrit Auto (Bld) [Volum e fraction]Ordered By: Verónica Lopez on 11-05-2022 Hematocrit (Bld) [Volume fraction] 47.1 % 37-47 [facility] Laboratory - Chemistry and C hemistry - challengeOrdered By: Verónica Lopez on 11-05-2022 ALP [Catalytic activity/Vol] 108 U/L 45-117 [facility] ALT [Catalytic activity/Vol] 26 U/L 13-56 [facility] CO2 [Moles/Vol] 28.0 mmol/L 21.0-32.0 [facility] Globulin (S) [Mass/Vol] 3.2 g/dL 2.2-4.2 [facility] Urea nitrogen/Creatinine [Mass ratio] 20.2 mg/mg 10-20 [facility] Laboratory - Hematology and Cell countsOrdered By: Verónica Lopez on 11-05-2022 Erythrocyte distribution width (RBC) [Entitic vol] 44.3 fL 35.1-43.9 [facility] Erythrocyte distribution width (RBC) [Ratio] 13.1 % 11.6-14.6 [facility] Immature granulocytes/100 WBC (Bld) 0.600 % 0.0-0.9 [facility] Comment on above: IG% - Immature Granu locytes (promyelocytes, myelocytes and metamyelocytes) > 1% indicates that a LEFT SHIFT is Present. MCH (RBC) [Entitic mass] 30.8 pg 27.0-32.0 [facility] Nucleated RBC/100 WBC (Bld) [Ratio] 0 % 0-5 [facility] MCHC Auto (RBC) [Mass/Vol]Or dered By: Verónica Lopez on 11-05-2022 MCHC (RBC) [Mass/Vol] 32.9 g/dL 32-36 [facility] No Panel InformationOrdered By: Verónica Lopez on 11-05-2022 Estimated Creatinine Clearance Calc 47.38 ml/min [facility] Estimated GFR (MDRD) Amer 76 mL/min >60 [facility] Comment on above: GFR Calc Estimated GFR (MDRD) Non-Af Amer 63 mL/min >60 [facility] Comment on above: Non- GFR Calc Platelets bldOrdered By: Erica Lopez on 11-05-2022 Platelets (Bld) [#/Vol] 318 10*3/uL 150-450 [facility] Serum or plasma albumin giovany urement (mass/volume)Ordered By: Verónica Lopez on 11-05-2022 Albumin [Mass/Vol] 4.2 g/dL 3.2-5.0 [facility] Serum or plasma albumin/glob ulin mass ratioOrdered By: Verónica Lopze on 11-05-2022 Albumin/Globulin [Mass ratio] 1.3 {ratio} 0.9-2.4 [facility] Serum or plasma calcium giovany urement (mass/volume)Ordered By: Verónica Lopez on 11-05-2022 Calcium [Mass/Vol] 9.6 mg/dL 8.5-10.1 [facility] Serum or plasma creatinine m easurement (mass/volume)Ordered By: Verónica Lopez on 11-05-2022 Creatinine [Mass/Vol] 0.94 mg/dL 0.55-1.02 [facility] Comment on above: The validity of the calculated GFR & GFRAA in patients over 70 years has not been determined. Clinical correlation is essential. Serum or plasma urea nitroge n measurement (mass/volume)Ordered By: Verónica Lopez on 11-05-2022 Urea nitrogen [Mass/Vol] 19 mg/dL 7-18 [facility] Thin prep Papanicolaou smear with manual screeningOrdered By: Verónica John on 11-05-2022 Thin prep Papanicolaou smear with manual screening 18 U/L 15-37 [facility] Thin prep Papanicolaou smear with manual screening 7 5-15 [facility] Absolute lymphocyte counton 04-25-2022 Lymphocytes Auto (Unsp spec) [#/Vol] 1.41 10*3/uL 0.83-4.51 [facility] Work Phone: [phone] Basophil percentageon 2021 Basophils/100 WBC (Bld) 1.0 % 0-1 [facility] Work Phone: [phone] Bilirubin [Mass/Vol] 0.40 mg/dL 0.20-1.00 [facility] Work Phone: [phone] Comment on above: For patients on eltr ombopag therapy, use of Dimension [place] TBIL is not recommended. Chloride [Moles/Vol] 110 mmol/L 98-107 [facility] Work Phone: Eosinophils/100 WBC (Bld) 3.6 % 0-5 [facility] Work Phone: Glucose [Mass/Vol] 93 mg/dL 74-106 [facility] Work Phone: Neutrophils (Bld) [#/Vol] 3.6 10*3/uL 2.0-7.7 [facility] Work Phone: Neutrophils/100 WBC (Bld) 62.0 % 47-70 [facility] Work Phone: Potassium [Moles/Vol] 4.0 mmol/L 3.5-5.1 [facility] Work Phone: Protein [Mass/Vol] 6.9 g/dL 6.4-8.2 [facility] Work Phone: Sodium [Moles/Vol] 145 mmol/L 136-145 [place] [facility] Work Phone: WBC (Bld) [#/Vol] 5.8 10*3/uL 4.4-11.0 [facility] Work Phone: Blood erythrocytes count (nu mber/volume)on 04-25-2022 RBC (Bld) [#/Vol] 4.52 10*6/uL 4.2-5.4 [facility] Work Phone: [phone] Blood hemoglobin measurement (mass/volume)on 04-25-2022 Hemoglobin (Bld) [Mass/Vol] 14.2 g/dL 12.0-15.0 [facility] Work Phone: Blood lymphocytes/100 leukoc yteson 04-25-2022 Lymphocytes/100 WBC (Bld) 24.3 % 19-41 [facility] Work Phone: Blood monocytes/100 leukocyt eson 04-25-2022 Monocytes/100 WBC (Bld) 8.1 % 0-10 [facility] Work Phone: Blood platelet mean volumeon 04-25-2022 Platelet mean volume (Bld) [Entitic vol] 9.2 fL 6.2-12.0 [facility] Work Phone: Determination of erythrocyte mean corpuscular volume (MCV)on 04-25-2022 MCV (RBC) [Entitic vol] 96.9 fL 81-99 [facility] Work Phone: Hematocrit Auto (Bld) [Volum e fraction]on 04-25-2022 Hematocrit (Bld) [Volume fraction] 43.8 % 37-47 [facility] Work Phone: Laboratory - Chemistry and C hemistry - challengeon 04-25-2022 ALP [Catalytic activity/Vol] 115 U/L 45-117 [facility] Work Phone: [phone] ALT [Catalytic activity/Vol] 29 U/L 13-56 [facility] Work Phone: [phone] CO2 [Moles/Vol] 31.0 mmol/L 21.0-32.0 [facility] Work Phone: [phone] Globulin (S) [Mass/Vol] 3.2 g/dL 2.2-4.2 [facility] Work Phone: [phone] Urea nitrogen/Creatinine [Mass ratio] 17.5 mg/mg 10-20 [facility] Work Phone: [phone] Laboratory - Hematology and Cell countson 04-25-2022 Erythrocyte distribution width (RBC) [Entitic vol] 47.6 fL 35.1-43.9 [facility] Work Phone: [phone] Erythrocyte distribution width (RBC) [Ratio] 13.3 % 11.6-14.6 [facility] Work Phone: [phone] Immature granulocytes/100 WBC (Bld) 1.000 % 0.0-0.9 [facility] Work Phone: [phone] Comment on above: IG% - Immature Granu locytes (promyelocytes, myelocytes and metamyelocytes) > 1% indicates that a LEFT SHIFT is Present. MCH (RBC) [Entitic mass] 31.4 pg 27.0-32.0 [facility] Work Phone: [phone] Nucleated RBC/100 WBC (Bld) [Ratio] 0 % 0-5 [facility] Work Phone: [phone] MCHC Auto (RBC) [Mass/Vol]on 04-25-2022 MCHC (RBC) [Mass/Vol] 32.4 g/dL 32-36 [facility] Work Phone: [phone] No Panel Informationon 04-25 Estimated Creatinine Clearance Calc 43.84 ml/min [facility] Work Phone: [phone] Estimated GFR (MDRD) Amer 69 mL/min >60 [facility] Work Phone: Comment on above: GFR Calc Estimated GFR (MDRD) Non-Af Amer 57 mL/min >60 [facility] Work Phone: Comment on above: Non- GFR Calc Platelets bldon 04-25-2022 Platelets (Bld) [#/Vol] 250 10*3/uL 150-450 [facility] Work Phone: Serum or plasma albumin giovany urement (mass/volume)on 04-25-2022 Albumin [Mass/Vol] 3.7 g/dL 3.2-5.0 [facility] Work Phone: Serum or plasma albumin/glob ulin mass ratioon 04-25-2022 Albumin/Globulin [Mass ratio] 1.2 {ratio} 0.9-2.4 [facility] Work Phone: Serum or plasma calcium giovany urement (mass/volume)on 04-25-2022 Calcium [Mass/Vol] 9.6 mg/dL 8.5-10.1 [facility] Work Phone: Serum or plasma creatinine m easurement (mass/volume)on 04-25-2022 Creatinine [Mass/Vol] 1.03 mg/dL 0.55-1.02 [facility] Work Phone: Comment on above: The validity of the calculated GFR & GFRAA in patients over 70 years has not been determined. Clinical correlation is essential. Serum or plasma urea nitroge n measurement (mass/volume)on 04-25-2022 Urea nitrogen [Mass/Vol] 18 mg/dL 7-18 [facility] Work Phone: Thin prep Papanicolaou smear with manual screeningon 04-25-2022 Thin prep Papanicolaou smear with manual screening 13 U/L 15-37 [facility] Work Phone: Thin prep Papanicolaou smear with manual screening 4 5-15 [facility] Work Phone: Absolute lymphocyte counton 01-21-2022 Lymphocytes Auto (Unsp spec) [#/Vol] 1.05 10*3/uL 0.83-4.51 [facility] Work Phone: Basophil percentageon 2021 Basophils/100 WBC (Bld) 0.9 % 0-1 [facility] Work Phone: Chloride [Moles/Vol] 111 mmol/L 98-107 [facility] Work [facility]: Eosinophils/100 WBC (Bld) 2.1 % 0-5 [facility] Work Phone: Glucose [Mass/Vol] 98 mg/dL 74-106 [facility] Work Phone: Neutrophils (Bld) [#/Vol] 3.7 10*3/uL 2.0-7.7 [facility] Work Phone: Neutrophils/100 WBC (Bld) 69.1 % 47-70 [facility] Work Phone: Potassium [Moles/Vol] 3.8 mmol/L 3.5-5.1 [facility] Work Phone: Sodium [Moles/Vol] 143 mmol/L 136-145 [facility] Work Phone: WBC (Bld) [#/Vol] 5.3 10*3/uL 4.4-11.0 [facility] Work Phone: Blood erythrocytes count (nu mber/volume)on 01-21-2022 RBC (Bld) [#/Vol] 4.99 10*6/uL 4.2-5.4 [facility] Work Phone: Blood hemoglobin measurement (mass/volume)on 01-21-2022 Hemoglobin (Bld) [Mass/Vol] 15.2 g/dL 12.0-15.0 [facility] Work Phone: Blood lymphocytes/100 leukoc yteson 01-21-2022 Lymphocytes/100 WBC (Bld) 19.8 % 19-41 [facility] Work Phone: Blood monocytes/100 leukocyt eson 01-21-2022 Monocytes/100 WBC (Bld) 7.7 % 0-10 [facility] Work Phone: Blood platelet mean volumeon 01-21-2022 Platelet mean volume (Bld) [Entitic vol] 9.4 fL 6.2-12.0 [facility] Work Phone: [phone] Determination of erythrocyte mean corpuscular volume (MCV)on 01-21-2022 MCV (RBC) [Entitic vol] 93.2 fL 81-99 [facility] Work Phone: Hematocrit Auto (Bld) [Volum e fraction]on 01-21-2022 Hematocrit (Bld) [Volume fraction] 46.5 % 37-47 [facility] Work Phone: [phone] Laboratory - Chemistry and C hemistry - challengeon 01-21-2022 CO2 [Moles/Vol] 26.0 mmol/L 21.0-32.0 [facility] Work Phone: [phone] Urea nitrogen/Creatinine [Mass ratio] 15.0 mg/mg 10-20 [facility] Work Phone: Laboratory - Hematology and Cell countson 01-21-2022 Erythrocyte distribution width (RBC) [Entitic vol] 43.1 fL 35.1-43.9 [facility] Work Phone: Erythrocyte distribution width (RBC) [Ratio] 12.5 % 11.6-14.6 [facility] Work Phone: [phone] Immature granulocytes/100 WBC (Bld) 0.400 % 0.0-0.9 [facility] Work Phone: Comment on above: IG% - Immature Granu locytes (promyelocytes, myelocytes and metamyelocytes) > 1% indicates that a LEFT SHIFT is Present. MCH (RBC) [Entitic mass] 30.5 pg 27.0-32.0 [facility] Work Phone: Nucleated RBC/100 WBC (Bld) [Ratio] 0 % 0-5 [facility] Work Phone: [phone] MCHC Auto (RBC) [Mass/Vol]on 01-21-2022 MCHC (RBC) [Mass/Vol] 32.7 g/dL 32-36 [facility] Work Phone: No Panel Informationon 01-21 Troponin I High Sensitivity 4 pg/mL 3.0-54.0 [facility] Work Phone: Comment on above: Please Note: New [place] t Units and Gender Specific Reference Ranges. For more information see Policy Stat Procedure [place] High Sensitivity Troponin (TNIH) and attachments. Estimated Creatinine Clearance Calc 41.19 ml/min [facility] Work Phone: Estimated GFR (MDRD) Amer 71 mL/min >60 [facility] Work Phone: Comment on above: GFR Calc Estimated GFR (MDRD) Non-Af Amer 59 mL/min >60 [facility] Work Phone: Comment on above: Non- GFR Calc Platelets bldon 01-21-2022 Platelets (Bld) [#/Vol] 272 10*3/uL 150-450 [facility] Work Phone: Serum or plasma calcium giovany urement (mass/volume)on 01-21-2022 Calcium [Mass/Vol] 9.6 mg/dL 8.5-10.1 [facility] Work Phone: Serum or plasma creatinine m easurement (mass/volume)on 01-21-2022 Creatinine [Mass/Vol] 1.00 mg/dL 0.55-1.02 [facility] Work Phone: Comment on above: The validity of the calculated GFR & GFRAA in patients over 70 years has not been determined. Clinical correlation is essential. Serum or plasma urea nitroge n measurement (mass/volume)on 01-21-2022 Urea nitrogen [Mass/Vol] 15 mg/dL 7-18 [facility] Work Phone: Thin prep Papanicolaou smear with manual screeningon 01-21-2022 Thin prep Papanicolaou smear with manual screening 6 5-15 [facility] Work Phone: Absolute lymphocyte counton 10-18-2021 Lymphocytes Auto (Unsp spec) [#/Vol] 1.17 10*3/uL 0.83-4.51 [facility] Work Phone: Basophil percentageon 2021 Basophils/100 WBC (Bld) 1.2 % 0-1 [facility] Work Phone: Bilirubin [Mass/Vol] 0.60 mg/dL 0.20-1.00 [facility] Work Phone: Comment on above: For patients on eltr ombopag therapy, use of Dimension [place] TBIL is not recommended. Chloride [Moles/Vol] 108 mmol/L 98-107 [facility] Work Phone: Eosinophils/100 WBC (Bld) 2.8 % 0-5 [facility] Work Phone: Glucose [Mass/Vol] 93 mg/dL 74-106 [facility] Work Phone: Neutrophils (Bld) [#/Vol] 3.1 10*3/uL 2.0-7.7 [facility] Work Phone: Neutrophils/100 WBC (Bld) 62.0 % 47-70 [facility] Work Phone: Potassium [Moles/Vol] 4.0 mmol/L 3.5-5.1 [facility] Work Phone: Protein [Mass/Vol] 6.7 g/dL 6.4-8.2 [facility] Work Phone: Sodium [Moles/Vol] 142 mmol/L 136-145 [facility] Work Phone: WBC (Bld) [#/Vol] 4.9 10*3/uL 4.4-11.0 [facility] Work Phone: Blood erythrocytes count (nu mber/volume)on 10-18-2021 RBC (Bld) [#/Vol] 4.59 10*6/uL 4.2-5.4 [facility] Work Phone: Blood hemoglobin measurement (mass/volume)on 10-18-2021 Hemoglobin (Bld) [Mass/Vol] 14.1 g/dL 12.0-15.0 [facility] Work Phone: Blood lymphocytes/100 leukoc yteson 10-18-2021 Lymphocytes/100 WBC (Bld) 23.8 % 19-41 [facility] Work Phone: Blood monocytes/100 leukocyt eson 10-18-2021 Monocytes/100 WBC (Bld) 9.8 % 0-10 [facility] Work Phone: Blood platelet mean volumeon 10-18-2021 Platelet mean volume (Bld) [Entitic vol] 9.1 fL 6.2-12.0 [facility] Work Phone: Determination of erythrocyte mean corpuscular volume (MCV)on 10-18-2021 MCV (RBC) [Entitic vol] 91.9 fL 81-99 [facility] Work Phone: [phone] Hematocrit Auto (Bld) [Volum e fraction]on 10-18-2021 Hematocrit (Bld) [Volume fraction] 42.2 % 37-47 [facility] Work Phone: Laboratory - Chemistry and C hemistry - challengeon 10-18-2021 ALP [Catalytic activity/Vol] 109 U/L 45-117 [facility] Work Phone: [phone] ALT [Catalytic activity/Vol] 26 U/L 13-56 [facility] Work Phone: [phone] CO2 [Moles/Vol] 27.0 mmol/L 21.0-32.0 [facility] Work Phone: [phone] Globulin (S) [Mass/Vol] 3.0 g/dL 2.2-4.2 [facility] Work Phone: [phone] Urea nitrogen/Creatinine [Mass ratio] 21.4 mg/mg 10-20 [facility] Work Phone: [phone] Laboratory - Hematology and Cell countson 10-18-2021 Erythrocyte distribution width (RBC) [Entitic vol] 46.1 fL 35.1-43.9 [facility] Work Phone: Erythrocyte distribution width (RBC) [Ratio] 13.6 % 11.6-14.6 [facility] Work Phone: Immature granulocytes/100 WBC (Bld) 0.400 % 0.0-0.9 [facility] Work Phone: Comment on above: IG% - Immature Granu locytes (promyelocytes, myelocytes and metamyelocytes) > 1% indicates that a LEFT SHIFT is Present. MCH (RBC) [Entitic mass] 30.7 pg 27.0-32.0 [facility] Work Phone: Nucleated RBC/100 WBC (Bld) [Ratio] 0 % 0-5 [facility] Work Phone: MCHC Auto (RBC) [Mass/Vol]on 10-18-2021 MCHC (RBC) [Mass/Vol] 33.4 g/dL 32-36 [facility] Work Phone: No Panel Informationon 10-18 Estimated Creatinine Clearance Calc 48.04 ml/min [facility] Work Phone: Estimated GFR (MDRD) Amer 77 mL/min >60 [facility] Work Phone: Comment on above: GFR Calc Estimated GFR (MDRD) Non-Af Amer 63 mL/min >60 [facility] Work Phone: Comment on above: Non- GFR Calc Platelets bldon 10-18-2021 Platelets (Bld) [#/Vol] 247 10*3/uL 150-450 [facility] Work Phone: Serum or plasma albumin giovany urement (mass/volume)on 10-18-2021 Albumin [Mass/Vol] 3.7 g/dL 3.2-5.0 [facility] Work Phone: Serum or plasma albumin/glob ulin mass ratioon 10-18-2021 Albumin/Globulin [Mass ratio] 1.2 {ratio} 0.9-2.4 [facility] Work Phone: Serum or plasma calcium giovany urement (mass/volume)on 10-18-2021 Calcium [Mass/Vol] 9.4 mg/dL 8.5-10.1 [facility] Work Phone: Serum or plasma creatinine m easurement (mass/volume)on 10-18-2021 Creatinine [Mass/Vol] 0.94 mg/dL 0.55-1.02 [facility] Work Phone: Comment on above: The validity of the calculated GFR & GFRAA in patients over 70 years has not been determined. Clinical correlation is essential. Serum or plasma urea nitroge n measurement (mass/volume)on 10-18-2021 Urea nitrogen [Mass/Vol] 20 mg/dL 7-18 [facility] Work Phone: Thin prep Papanicolaou smear with manual screeningon 10-18-2021 Thin prep Papanicolaou smear with manual screening 16 U/L 15-37 [facility] Work Phone: Thin prep Papanicolaou smear with manual screening 7 5-15 [facility] Work Phone: CBCon 04-24-2021 Absolute nRBC <0.01 Normal <0.01 [facility] Comment on above: Performed By: #### C RP, RFP, CBC, FERR #### [facility] [address] [place] [address] Erythrocyte distribution width (RBC) [Ratio] 13.3 % Normal 11.5-15.0 [facility] Comment on above: Performed By: #### C RP, RFP, CBC, FERR #### [facility] [address] [place] [address] Hematocrit (Bld) [Volume fraction] 37.7 % Normal 36.0-46.0 [facility] Comment on above: Performed By: #### C RP, RFP, CBC, FERR #### [facility] [address] [place] [address] Hemoglobin (Bld) [Mass/Vol] 12.5 g/dL Normal 11.5-15.5 [facility] Comment on above: Performed By: #### C RP, RFP, CBC, FERR #### [address] [place] [address] MCH 30.4 pG Normal 26.0-34.0 [facility] Comment on above: Performed By: #### C RP, RFP, CBC, FERR #### [address] [place] [address] MCHC (RBC) [Mass/Vol] 33.2 g/dL Normal 30.5-36.0 [facility] Comment on above: Performed By: #### C RP, RFP, CBC, FERR #### [address] [place] [address] MCV (RBC) [Entitic vol] 91.7 fL Normal 80.0-100.0 [facility] Comment on above: Performed By: #### C RP, RFP, CBC, FERR #### [address] [place] [address] Platelet mean volume (Bld) [Entitic vol] 9.5 fL Normal 9.0-12.7 [facility] Comment on above: Performed By: #### C RP, RFP, CBC, FERR #### [address] [place] [address] Platelets (Bld) [#/Vol] 402 10*3/uL High 150-400 [facility] Comment on above: Performed By: #### C RP, RFP, CBC, FERR #### [address] [place] [address] RBC (Bld) [#/Vol] 4.11 10*6/uL Normal 3.90-5.20 [facility] Comment on above: Performed By: #### C RP, RFP, CBC, FERR #### [facility] [address] [place] [address] WBC (Bld) [#/Vol] 7.66 10*3/uL Normal 3.70-11.00 [facility] Comment on above: Performed By: #### C RP, RFP, CBC, FERR #### [facility] [address] [place] [address] CNDSon 04-24-2021 CNDS HNO ID: [id number] Author: Ty Pulido MD Service: General Internal Medicine Author Type: Physician Type: Discharge Summary Filed: 04/24/2021 10:26 PM Note Text: DISCHARGE SUMMARY PATIENT NAME: Bo Monteiro Code Status: Not on file Highest Readmission Risk Score: 21 The 30 day readmissions risk score is derived from an internally validated risk model which evaluates patient level characteristics, utilization history, medication orders and lab results up until the day of discharge. Patients with a score of 40 or above are considered highest risk for readmission. Specific patient level drivers will be listed at the bottom of the summary. Admission Information Admission Information ADMIT DATE: 04/11/2021 DISCHARGE DATE: 04/24/2021 MY DOCTORS AND MEDICAL TEAM: My Main Hospital Doctor: Ty Pulido MD Primary Care Provider: Loan Dias APRN.[employer] My Medical Team Members: Treatment Team: Attending Provider: Ty Pulido MD Consulting: Rolo Oates MD Consulting: Ty Pulido MD MY CONDITION AT DISCHARGE: Stable REASON I WAS IN THE HOSPITAL: shortness of breath SUMMARY OF WHAT HAPPENED WHILE IN THE HOSPITAL: was admitted for severe viral pneumonia with associated acute respiratory failure with hypoxia, due to COVID. Was treated with dexamethasone and remdesivir and eventually was down to 2l/m, was discharged to 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) Pneumonia due to COVID-19 virus Mild protein-calorie malnutrition (HCC) Obesity, Class II, BMI 35-39.9 Acute respiratory failure with hypoxia (HCC) Resolved Problems: Asymptomatic PVCs OPERATIONS PERFORMED WHILE IN THE HOSPITAL: None IMPORTANT TEST/PROCEDURES: No procedures performed TEST RESULTS NOT AVAILABLE AT THIS TIME: No pending results Discharge Disposition Discharge Disposition: [facility] - Less than 30 Days Activity When You Leave the Hospital Resume pre-hospital activity Diet Instructions Resume your pre-hospital diet Follow Up Appointments Follow-Up Appointment When: In 2 weeks Patient/Parents to call for appointment?: Yes Loan L STEPHANIE Dias.[employer] [phone] [facility] [address] [place] [id number] PCP Requested Referral Additional Provider to Provider Information: Patient was admitted for severe viral pneumonia secondary to COVID-19 infection with resultant severe hypoxic respiratory failure. She was managed in the ICU with Decadron and remdesivir and later transferred to the floor, she was gradually weaned down on the oxygen and she required 2 L of nasal cannula at the time of discharge, eventually discharged [facility] Treatment Team: Attending Provider: Ty Pulido MD Consulting: Rolo Oates MD Consulting: Ty Pulido MD Transitions of Care Critical Issues: Discharged on 2 L nasal cannula oxygen LABS AND PROCEDURES PENDING AT DISCHARGE: No pending results. FOLLOW-UP APPOINTMENTS ALREADY SCHEDULED WITH A [facility] PROVIDER: No future appointments. ALLERGIES Allergen Reactions - Oxycodone-Acetamino* Rash - Tape [Adhesive Tape* Rash DISCHARGE MEDICATION: Discharge Medication List as of 04/24/2021 2:15 PM START taking these medications benzonatate (TESSALON PERLE) 100 mg capsule Take 1 capsule by mouth three times daily. Med Update ALPRAZolam (XANAX) 0.25 mg tablet Take 0.5 tablets by mouth three times daily as needed for anxiety for up to 7 days., Starting 04/24/2021 Med Update albuterol HFA (PROVENTIL HFA, VENTOLIN HFA) 90 mcg/actuation inhaler Inhale 2 Puffs as instructed every 4 hours as needed for wheezing/shortness of breath. Med Update, Long-term Generic or brand: dispense inhaler preferred by patient/insurance unless SINDI flag is selected. enoxaparin (LOVENOX) 40 mg/0.4 mL Inject 0.4 mL subcutaneously q 24 HR for 7 days. Med Update, Disp-2.8 mL, R-0 heparin 100 unit/mL injection Inject 5 mL intravenously as needed (Flush IVAD PRN prior to decannulation or every 30 days if not in use). Med Update traMADol (ULTRAM) 50 mg tablet Take 1 tablet by mouth every 6 hours as needed. Med Update OXYGEN, HOME THERAPY, 2 L/min by Nasal Cannula route continuous. Print RX, Disp-1 Each, R-0 Dx: 1. Pneumonia due to COVID-19 virus Wheel Chair aurelia For personal ambulation Print RX, Disp-1 Each, R-0 Dx: 1. Pneumonia due to COVID-19 virus CONTINUE these medications which have NOT CHANGED exemestane (AROMASIN) 25 mg tablet Take 25 mg by mouth once daily. Historical Med hydrOXYzine HCl (ATARAX) 25 mg tablet Take 25 mg by mouth at bedtime as needed for anxiety. Historical Med vitamin E, dl,tocopheryl acet, (VITAMIN E, DL, ACETATE,) 450 mg (1,000 unit) cap Take 1 Cap-Full by mouth once daily. Historical Med, Long-term pentoxifylline ER (TRENTAL) 400 mg CR tabl (more content not included)... [facility] CONSULT PROGon 04-24-2021 CONSULT PROG HNO ID: [id number] Author: Rosendo Landin V, MD Service: Infectious Disease Author Type: Physician Type: Consult Progress Note Filed: 04/24/2021 12:54 PM Note Text: INFECTIOUS DISEASES PROGRESS NOTE Subjective: mild cough, no sob, no fevers/chills Interval History AND Relevant Results: crp improved to 1.4 yesterday, no fevers, rpt covid-19 test yest still +ve, rmn on 2L NC Temp (24hrs), Av.6 ?C (97.9 ?F), Min:36.3 ?C (97.3 ?F), Max:36.9 ?C (98.4 ?F) WBC Date Value Ref Range Status 04/24/2021 7.66 3.70 - 11.00 k/uL Final 04/23/2021 6.60 3.70 - 11.00 k/uL Final Creatinine Date Value Ref Range Status 04/24/2021 0.76 0.58 - 0.96 mg/dL Final 04/23/2021 0.81 0.58 - 0.96 mg/dL Final VS: BP 100/80 Pulse 88 Temp 36.5 ?C (97.7 ?F) (Oral) Resp 16 Ht 154.9 cm (5' 1) Wt 90.2 kg (198 lb 13.7 oz) SpO2 98% BMI 37.57 kg/m? Answering questions appropriately, No acute distress Anicteric sclera No respiratory distress, clear to auscultation bilaterally on posterior lung exam Abdomen non-distended ASSESSMENT AND PLAN unvaccinated 65 YO lady with severe sepsis (POA) due to COVID infection with viral PNA S/P negative CTA for PE on 04/16 At risk for deterioration given her age AND breast CA Completed 1 wk of zosyn on 04/17 ,procal 04/18 improved Done with 10 days of dexa on 04/20 AND she has completed a 5 day course of remdesivir on 04/15 Ok for d/c from id standpoint on o2 as needed. Planned for rehab tx at 4PM today Will sign off. Please call with questions. Rosendo Landin MD [facility] Office #: Fax #: Date AND Time Signed: April 24, 2021 12:54 PM [facility] NURSING PROGon 04-24-2021 NURSING PROG HNO ID: [id number] Author: Shawnee Barrett RN Service: ? Author Type: Registered Nurse Type: Nursing Progress Note Filed: 04/24/2021 4:20 PM Note Text: Nursing Progress Note Patient Name: Bo Monteiro Patient Location: [id number] 2 Daily Note: 0730: Assuming care of pt. Pt is resting in bed, daughter is at bedside.Pt is AANDOx3, 2L NC in place. Monitor maintained: SR. Port to left chest dressing DANDI, blood return present. Assessment as charted. 1400: Dr. Pulido in to see pt-OK to D/C to [facility] today at 4pm 1500: Port deaccessed. Monitor removed. Pt dressed and belongings packed. 1615: Ambulance here with stretcher to transport pt. Chart copied and sent with pt-report called to [facility]. This note was completed by: Shawnee Barrett [facility] NURSING PROG HNO ID: [id number] Author: Cherelle Howe, RN Service: Nursing Author Type: Registered Nurse Type: Nursing Progress Note Filed: 04/24/2021 3:10 AM Note Text: Nursing Progress Note Patient Name: Bo Monteiro Patient Location: [id number] 2 Daily Note: 1929 Assumed care of patient, she is currently up independently. Aox3, 2L NC. Bed low and locked, side rails up x2, call negron within reach. Will continue to monitor patient. 2124 NPR charted, VSS, L. Chest port patent, flushed with blood return present. SR on telemetry, 95% on 2L NC. Patient given scheduled tessalon perle. PRN xanax given for anxiety and PRN robitussin given for cough. No other patient complaints at this time. 0015 Patient's daughter called stating she'd like to speak with patient and that it was urgent regarding her 's critical condition. I woke patient, and told her to return her daughter's call. This note was completed by: Cherelle Howe [facility] Renal Function Panelon 04-24 Albumin [Mass/Vol] 3.5 g/dL Low 4.0-4.9 [facility] Comment on above: Performed By: #### C RP, RFP, CBC, FERR #### [facility] [address] [place] [address] Anion gap [Moles/Vol] 7 mmol/L Normal 0-15 [facility] Comment on above: Performed By: #### C RP, RFP, CBC, FERR #### [address] [place] [address] Calcium [Mass/Vol] 8.8 mg/dL Normal 8.5-10.2 [facility] Comment on above: Result Comment: Felipe mmended reference range provided for this age range is published by the instrument lower in supervisor. Adult reference ranges have been verified. Performed By: #### C RP, RFP, CBC, FERR #### [address] [place] [address] Chloride [Moles/Vol] 105 mmol/L Normal 97-105 [facility] Comment on above: Performed By: #### C RP, RFP, CBC, FERR #### [address] [place] [address] CO2 [Moles/Vol] 25 mmol/L Normal 22-30 [facility] Comment on above: Performed By: #### C RP, RFP, CBC, FERR #### [address] [place] [address] Creatinine [Mass/Vol] 0.76 mg/dL Normal 0.58-0.96 [facility] Comment on above: Performed By: #### C RP, RFP, CBC, FERR #### [address] [place] [address] eGFR- Amer. >60 Normal >60 [facility] Comment on above: Performed By: #### C RP, RFP, CBC, FERR #### [address] [place] [address] eGFR-All Other Races >60 Normal >60 [facility] Comment on above: Result Comment: eGFR (Estimated GFR) Units of measure: mL/min/1.73 meters squared eGFR is derived from the reexpressed MDRD Study equation using the following parameters: serum creatinine, age, gender and race. The creatinine assay has been calibrated to be traceable to IDMS. An eGFR <60 mL/min/1.73m2 for >3 months is consistent with chronic kidney disease. Refer to KDOQI guidelines for clinical interpretation. In patients with unstable renal function, e.g. those with acute kidney injury, the eGFR may not accurately reflect actual GFR. Performed By: #### C RP, RFP, CBC, FERR #### [facility] [address] [facility] [place] [address] Glucose [Mass/Vol] 95 mg/dL Normal 74-99 [facility] Comment on above: Performed By: #### C RP, RFP, CBC, FERR #### [address] [place] [address] Phosphate [Mass/Vol] 2.6 mg/dL Normal 2.5-4.5 [facility] Comment on above: Performed By: #### C RP, RFP, CBC, FERR #### [address] [place] [address] Potassium [Moles/Vol] 3.6 mmol/L Low 3.7-5.1 [facility] Comment on above: Performed By: #### C RP, RFP, CBC, FERR #### [address] [place] [address] Sodium [Moles/Vol] 137 mmol/L Normal 136-144 [facility] Comment on above: Performed By: #### C RP, RFP, CBC, FERR #### [address] [place] [address] Urea nitrogen [Mass/Vol] 18 mg/dL Normal 7-21 [facility] Comment on above: Result Comment: Felipe mmended reference range provided for this age range is published by the instrument lower in supervisor. Adult reference ranges have been verified. Performed By: #### C RP, RFP, CBC, FERR #### [address] [place] [address] THERAPY NTon 04-24-2021 THERAPY NT HNO ID: [id number] Author: Aj Lara PTA Service: Physical Therapy Author Type: Cable Technician Type: Therapy (PT/OT/Speech/Resp) Filed: 04/24/2021 2:37 PM Note Text: Attestation signed by Ashwini Diallo PT at 04/25/2021 6:33 AM I reviewed and agree with the documentation corresponding to this therapy visit. SIGNATURE: Ashwini Diallo PT DATE: April 25, 2021 TIME: 6:33 AM PHYSICAL THERAPY MISSED VISIT SERVICE DATE: 04/24/2021 SERVICE TIME: 1435 to 1435 ROOM: [place] [address] Attempted Treatment. Patient not seen due to Sleeping. SIGNATURE: Aj Lara PTA PATIENT NAME: Bo Monteiro DATE: April 24, 2021 TIME: 2:35 PM Per RN pt resting, this AM and pt is being DCd today at 1600. [facility] THERAPY NT HNO ID: [id number] Author: Aj Lara PTA Service: Physical Therapy Author Type: Cable Technician Type: Therapy (PT/OT/Speech/Resp) Filed: 04/24/2021 8:12 AM Note Text: Attestation signed by Ashwini Diallo PT at 04/24/2021 9:24 AM I reviewed and agree with the documentation corresponding to this therapy visit. SIGNATURE: Ashwini Diallo PT DATE: April 24, 2021 TIME: 9:24 AM PHYSICAL THERAPY MISSED VISIT SERVICE DATE: 04/24/2021 SERVICE TIME: 0800 to 0800 ROOM: [place] [address] Attempted Treatment. Patient not seen due to Another service at bedside. SIGNATURE: Aj Lara PTA PATIENT NAME: Bo Monteiro DATE: April 24, 2021 TIME: 8:09 AM RN at bed side and asked that pt not be seen for PT at this time due to pts is in hospital and not doing well, pt on phone with Dr del rosario. Will check back in PM. Normal [facility] C-Reactive Proteinon 021 C-Reactive Protein 1.4 mg/dL High <0.9 [facility] Comment on above: Performed By: #### C RP, RFP, CBC, FERR #### [facility] [address] [facility]., [place] [id number] CBCon 04-23-2021 Absolute nRBC <0.01 Normal <0.01 [facility] Comment on above: Performed By: #### C RP, RFP, CBC, FERR #### [facility] [address] [place] [address] Erythrocyte distribution width (RBC) [Ratio] 13.3 % Normal 11.5-15.0 [facility] Comment on above: Performed By: #### C RP, RFP, CBC, FERR #### [facility] [address] [place] [address] Hematocrit (Bld) [Volume fraction] 36.4 % Normal 36.0-46.0 [facility] Comment on above: Performed By: #### C RP, RFP, CBC, FERR #### [address] [place] [address] Hemoglobin (Bld) [Mass/Vol] 12.1 g/dL Normal 11.5-15.5 [facility] Comment on above: Performed By: #### C RP, RFP, CBC, FERR #### [address] [place] [address] MCH 30.3 pG Normal 26.0-34.0 [facility] Comment on above: Performed By: #### C RP, RFP, CBC, FERR #### [address] [place] [address] MCHC (RBC) [Mass/Vol] 33.2 g/dL Normal 30.5-36.0 [facility] Comment on above: Performed By: #### C RP, RFP, CBC, FERR #### [address] [place] [address] MCV (RBC) [Entitic vol] 91.0 fL Normal 80.0-100.0 [facility] Comment on above: Performed By: #### C RP, RFP, CBC, FERR #### [address] [place] [address] Platelet mean volume (Bld) [Entitic vol] 9.3 fL Normal 9.0-12.7 [facility] Comment on above: Performed By: #### C RP, RFP, CBC, FERR #### [address] [place] [address] Platelets (Bld) [#/Vol] 434 10*3/uL High 150-400 [facility] Comment on above: Performed By: #### C RP, RFP, CBC, FERR #### [address] [place] [address] RBC (Bld) [#/Vol] 4.00 10*6/uL Normal 3.90-5.20 [facility] Comment on above: Performed By: #### C RP, RFP, CBC, FERR #### [facility] [address] [facility] [place] [address] WBC (Bld) [#/Vol] 6.60 10*3/uL Normal 3.70-11.00 [facility] Comment on above: Performed By: #### C RP, RFP, CBC, FERR #### [facility] [address] [address] CONSULT PROGon 04-23-2021 CONSULT PROG HNO ID: [id number] Author: Kishan Maharaj V, MD Service: Pulmonary Disease Author Type: Physician Type: Consult Progress Note Filed: 04/25/2021 8:06 AM Note Text: PULMONARY/CRITICAL CARE PROGRESS NOTES PATIENT NAME: Bo Monteiro SERVICE DATE: 04/23/2021 SERVICE TIME: 8:45 AM ASSESSMENT Acute hypoxic respiratory failure COVID-19 pneumonia - Completed 10-day course of Decadron on 04/20 - Completed 5-day course of Remdesivir on 04/17 - Lovenox ppx Suspected superimposed bacterial pneumonia - Completed course of Zosyn on 04/18 History of invasive ductal breast carcinoma - On chemotherapy PLANS - oxygen continues to improve - 96% on 2L NC - complete desaturation eval to assess oxygen need for home - completed decadron, remdesivir and zosyn -supportive care for patient - noted patients is in OSH ICU on vent and not doing well - pulmonary status improving - will see as needed SUBJECTIVE/ Interval HPI Pt is resting in bed, noted she was having a virtual meeting with the hospital where her is. Overall her pulmonary status has been improving. Pertinent negatives and positives were reviewed in HPI. All other systems were negative MAR reviewed for pertinent medications. MEDICATIONS: Current Facility-Administered Medications Medication Dose Route Frequency ondansetron 4 mg tab(s) (ZOFRAN) 4 mg ORAL q 6 H PRN Or ondansetron (PF) 4 mg injection (ZOFRAN) 4 mg INTRAVENOUS q 6 H PRN docusate sodium 100 mg cap(s) (COLACE) 100 mg ORAL BID PRN magnesium hydroxide 400 mg/5 mL 30 mL (MOM) 30 mL ORAL DAILY PRN enoxaparin 40 mg injection (LOVENOX) 40 mg SUBCUTANEOUS q 24 HR NaCl 0.9% iv flush bag 20 mL INTRAVENOUS PRN sodium chloride 0.9 % (flush) 3-5 mL (BD POSIFLUSH) 3-5 mL INTRAVENOUS q 12 H sodium chloride 0.9 % (flush) 10 mL (BD POSIFLUSH) 10 mL INTRAVENOUS q 12 H sodium chloride 0.9 % (flush) 20 mL (BD POSIFLUSH) 20 mL INTRAVENOUS PRN heparin 100 unit/mL 500 Units injection 5 mL INTRAVENOUS PRN exemestane 25 mg tab(s) (AROMASIN) 25 mg ORAL DAILY acetaminophen 1,000 mg tab(s) (TYLENOL) 1,000 mg ORAL q 8 H PRN albuterol HFA 90 mcg/actuation 2 Puff (PROVENTIL HFA, VENTOLIN HFA) 2 Puff INHALATION Q6H WHILE AWAKE albuterol HFA 90 mcg/actuation 2 Puff (PROVENTIL HFA, VENTOLIN HFA) 2 Puff INHALATION q 4 H PRN guaiFENesin-dextromethorpha n 100-10 mg/5 mL 10 mL oral liquid (ROBITUSSIN DM) 10 mL ORAL q 4 H PRN benzonatate 100 mg cap(s) (TESSALON PERLE) 100 mg ORAL TID traMADol 50 mg tab(s) (ULTRAM) 50 mg ORAL q 6 H PRN iv contrast (radiology procedure) INTRAVENOUS DIRECTED PRN calcium carbonate 750 mg chewable tab(s) (TUMS) 750 mg ORAL BID PRN ALPRAZolam 0.125 mg tab(s) (XANAX) 0.125 mg ORAL TID PRN pantoprazole DR 40 mg tab(s) (PROTONIX) 40 mg ORAL DAILY (6 AM) phenol 1 Regina (CHLORASEPTIC) 1 Regina MUCOUS MEMBRANE (TOPICAL MOUTH AND THROAT) q 2 H PRN sodium chloride 0.65 % 2 Regina (AYR, OCEAN) 2 Regina EACH NOSTRIL PRN OBJECTIVE VITAL SIGNS (last 24hrs min/max): Temp Av.7 ?C (98.1 ?F) Min: 36.6 ?C (97.9 ?F) Max: 37 ?C (98.6 ?F) Pulse Av Min: 74 Max: 84 No data recorded Cuff BP Min: 97/58 Max: 119/68 Vitals: BP 97/58 Pulse 82 Temp 36.7 ?C (98.1 ?F) (Oral) Resp 18 Ht 154.9 cm (5' 1) Wt 90.2 kg (198 lb 13.7 oz) SpO2 96% BMI 37.57 kg/m? PHYSICAL EXAM: Body mass index is 37.57 kg/m?. GENERAL: Obese, awake and alert, no distress, cooperative EYES: Negative for Discharge HENT: Atraumatic, no nasal discharge LUNGS: Breath Sounds diminished bilateral to auscultation, Negative chest wall tenderness. CARDIAC: RRR, normal S1 and S2; no LE edema ABDOMEN: Abdomen soft, non-tender NEURO: Alert and Oriented x 3, Ambulatory with Assistance SKIN: normal temperature, no rash on visual exam DATA: Diagnostic tests reviewed for today's visit: -Reviewed most recent radiology report(s). -CXR: see Epic for results Labs/Diagnostic Tests: Most Recent Labs reviewed. CBC, Coags, BMP, Mg, Phos Recent Labs 04/23/21 0610 04/22/21 0604/21/21 0500 WBC 6.60 7.94 9.21 HB 12.1 12.4 12.6 HCT 36.4 37.3 37.9 PLT 434* 452* 472* NA 140 140 139 K 3.7 3.5* 3.8 CHLOR 106* 105 106* CO2 25 25 26 BUN 18 19 20 CREAT 0.81 0.83 0.68 GLUC 91 90 94 CA 8.7 8.8 8.8 P 2.6 2.9 2.7 Liver Function, Amylase, AND Lipase Recent Labs 04/23/21 0610 04/22/21 0630 04/21/21 0500 ALB 3.2* 3.2* 3.4* Plan of care discussed with: Provider, RN, Patient. This note may have been partially generated using the Polar voice recognition system and there may be some incorrect words, spellings or punctuation that were not noted in review before signing. SIGNATURE: Pablo Deutsch PA-C DATE: April 23, 2021 TIME: 8:45 AM Phone/Pager - Supervising Staff Physician: Dr. Maharaj Attending Note I have personally performed a face to face assessment of the patient and have reveived the (more content not included)... Normal [facility] Expedited [id number] 04-23-20 21 SARS-CoV-2 (COVID-19) RNA KRISTOFER+probe Ql (Unsp spec) UPPER RESPIRATORY TRACT SWAB Normal [facility] Comment on above: Result Comment: Call ed to and read back by: Nicolasa Wilder RN [facility] 4 [facility] 04/23/21 1831 T Conn Performed By: #### C RP, RFP, CBC, FERR #### [facility] [address] [facility]., [place] [id number] SARS-CoV-2 (COVID-19) RNA KRISTOFER+probe Ql (Unsp spec) Positive for COVID19 (SARS CoV2) by RT-PCR or equivalent method. Critically abnormal Negative for COVID19 (SARS CoV2) by RT-PCR or equivalent method. [facility] Comment on above: Result Comment: If y our test results are positive, you have tested positive for the presence of the virus associated with COVID-19. This is a stressful time and if you are a [facility] patient, we will support you by closely monitoring your symptoms and providing supportive resources that can ease your recovery. Our team will call you regularly and have you enter your symptoms in MyChart, so that we can provide the best care possible. This test has been authorized by FDA under an Emergency Use Authorization (EUA). Performed By: #### C RP, RFP, CBC, FERR #### [facility] [address] [facility]., [place] [id number] Ferritinon 04-23-2021 Ferritin [Mass/Vol] 327.4 ng/mL High 14.7-205.1 [facility] Comment on above: Performed By: #### C RP, RFP, CBC, FERR #### [facility] [address] [place] [address] NURSING PROGon 04-23-2021 NURSING PROG HNO ID: [id number] Author: Derrek Wilder RN Service: ? Author Type: Registered Nurse Type: Nursing Progress Note Filed: 04/23/2021 6:39 PM Note Text: Nursing Progress Note Patient Name: Bo Monteiro Patient Location: [id number] 2 Daily Note: 0730 Assumed care pt stable will continue to monitor vitals. Bed in low locked position and call light within reach. 1130 Pt 89% on exertion on 2L NC 1150 Pt 90 % at rest on room air, Pt placed back on 2 L NC pt spo2 93% 1400 Pt and aiden request for pt to go to [facility] 1830 auto body technician Conn called lab value covid positive. Pt already known to have covid. This note was completed by: Derrek Wilder Normal [facility] Renal Function Panelon 04-23 Albumin [Mass/Vol] 3.2 g/dL Low 4.0-4.9 [facility] Comment on above: Performed By: #### C RP, RFP, CBC, FERR #### [facility] [address] [facility] [place] [address] Anion gap [Moles/Vol] 9 mmol/L Normal 0-15 [facility] Comment on above: Performed By: #### C RP, RFP, CBC, FERR #### [facility] [address] [facility] [place] [address] Calcium [Mass/Vol] 8.7 mg/dL Normal 8.5-10.2 [facility] Comment on above: Result Comment: Felipe mmended reference range provided for this age range is published by the instrument lower in supervisor. Adult reference ranges have been verified. Performed By: #### C RP, RFP, CBC, FERR #### [facility] [address] [facility] [place] [address] Chloride [Moles/Vol] 106 mmol/L High 97-105 [facility] Comment on above: Performed By: #### C RP, RFP, CBC, FERR #### [facility] [address] [facility] [place] [address] CO2 [Moles/Vol] 25 mmol/L Normal 22-30 [facility] Comment on above: Performed By: #### C RP, RFP, CBC, FERR #### [facility] [id number] [place] [address]., [place] [address] Creatinine [Mass/Vol] 0.81 mg/dL Normal 0.58-0.96 [facility] Comment on above: Performed By: #### C RP, RFP, CBC, FERR #### [facility] [address] [place] [address] eGFR- Amer. >60 Normal >60 [facility] Comment on above: Performed By: #### C RP, RFP, CBC, FERR #### [facility] [id number] [place] [address]., [place] [address] eGFR-All Other Races >60 Normal >60 [facility] Comment on above: Result Comment: eGFR (Estimated GFR) Units of measure: mL/min/1.73 meters squared eGFR is derived from the reexpressed MDRD Study equation using the following parameters: serum creatinine, age, gender and race. The creatinine assay has been calibrated to be traceable to IDMS. An eGFR <60 mL/min/1.73m2 for >3 months is consistent with chronic kidney disease. Refer to KDOQI guidelines for clinical interpretation. In patients with unstable renal function, e.g. those with acute kidney injury, the eGFR may not accurately reflect actual GFR. Performed By: #### C RP, RFP, CBC, FERR #### [facility] [address] [place] [address] Glucose [Mass/Vol] 91 mg/dL Normal 74-99 [facility] Comment on above: Performed By: #### C RP, RFP, CBC, FERR #### [facility] [address] [facility] [place] [address] Phosphate [Mass/Vol] 2.6 mg/dL Normal 2.5-4.5 [facility] Comment on above: Performed By: #### C RP, RFP, CBC, FERR #### [facility] [address] [facility] [place] [address] Potassium [Moles/Vol] 3.7 mmol/L Normal 3.7-5.1 [facility] Comment on above: Performed By: #### C RP, RFP, CBC, FERR #### [address] [place] [address] Sodium [Moles/Vol] 140 mmol/L Normal 136-144 [facility] Comment on above: Performed By: #### C RP, RFP, CBC, FERR #### [address] [place] [address] Urea nitrogen [Mass/Vol] 18 mg/dL Normal 7-21 [facility] Comment on above: Result Comment: Felipe mmended reference range provided for this age range is published by the instrument lower in supervisor. Adult reference ranges have been verified. Performed By: #### C RP, RFP, CBC, FERR #### [address] [place] [address] CBCon 04-22-2021 Absolute nRBC <0.01 Normal <0.01 [facility] Comment on above: Performed By: #### C RP, RFP, CBC, FERR #### [address] [place] [address] Erythrocyte distribution width (RBC) [Ratio] 13.2 % Normal 11.5-15.0 [facility] Comment on above: Performed By: #### C RP, RFP, CBC, FERR #### [address] [place] [address] Hematocrit (Bld) [Volume fraction] 37.3 % Normal 36.0-46.0 [facility] Comment on above: Performed By: #### C RP, RFP, CBC, FERR #### [address] [place] [address] Hemoglobin (Bld) [Mass/Vol] 12.4 g/dL Normal 11.5-15.5 [facility] Comment on above: Performed By: #### C RP, RFP, CBC, FERR #### [address] [place] [address] MCH 29.9 pG Normal 26.0-34.0 [facility] Comment on above: Performed By: #### C RP, RFP, CBC, FERR #### [address] [place] [address] MCHC (RBC) [Mass/Vol] 33.2 g/dL Normal 30.5-36.0 [facility] Comment on above: Performed By: #### C RP, RFP, CBC, FERR #### [address] [place] [address] MCV (RBC) [Entitic vol] 89.9 fL Normal 80.0-100.0 [facility] Comment on above: Performed By: #### C RP, RFP, CBC, FERR #### [address] [place] [address] Platelet mean volume (Bld) [Entitic vol] 9.3 fL Normal 9.0-12.7 [facility] Comment on above: Performed By: #### C RP, RFP, CBC, FERR #### [address] [place] [address] Platelets (Bld) [#/Vol] 452 10*3/uL High 150-400 [facility] Comment on above: Performed By: #### C RP, RFP, CBC, FERR #### [address] [place] [address] RBC (Bld) [#/Vol] 4.15 10*6/uL Normal 3.90-5.20 [facility] Comment on above: Performed By: #### C RP, RFP, CBC, FERR #### [facility] [address] [place] [address] WBC (Bld) [#/Vol] 7.94 10*3/uL Normal 3.70-11.00 [facility] Comment on above: Performed By: #### C RP, RFP, CBC, FERR #### [facility] [address] [place] [address] NURSING PROGon 04-22-2021 NURSING PROG HNO ID: [id number] Author: Ashley Aly RN Service: Nursing Author Type: Registered Nurse Type: Nursing Progress Note Filed: 04/22/2021 2:41 PM Note Text: Nursing Progress Note Patient Name: Bo Monteiro Patient Location: [id number] 2 Daily Note: Received report from date night caregiver RN. Pt laying in bed, awake, and comfortable. Assessment complete as in the NPR.Pt needs met. Possessions and call light in reach. No complaints of pain at this time. 0821: Pt given medication as ordered and tolerated well. Pt needs met. Possessions and call light in reach. 1147: AP on unit and in to see. Made aware patient requesting to be transferred to [facility], for patient hospitalized there. AP called [facility] for transfer. This note was completed by: Ashley Aly Normal [facility] NURSING PROG HNO ID: [id number] Author: Cherelle oHwe RN Service: Nursing Author Type: Registered Nurse Type: Nursing Progress Note Filed: 04/22/2021 4:34 AM Note Text: Nursing Progress Note Patient Name: Bo Monteiro Patient Location: [id number] Daily Note: 1930 Assumed care of patient, she is currently resting in bed. Pt is Aox3, 6L NC. Telemetry on and functioning. Bed low and locked, side rails up x3, call negron within reach. Will continue to monitor. 2100 NPR charted, VSS, IV flushed and patent. SR on telemetry, 98% on 6L NC. Patient given tessalon perle. PRN xanax given for anxiety, PRN robitussin given for cough, and PRN tramadol given for pain. 2300 Patient observed asleep. This note was completed by: Cherelle Howe Normal [facility] Renal Function Panelon 04-22 Albumin [Mass/Vol] 3.2 g/dL Low 4.0-4.9 [facility] Comment on above: Performed By: #### C RP, RFP, CBC, FERR #### [facility] [address] [facility] [place] [address] Anion gap [Moles/Vol] 10 mmol/L Normal 0-15 [facility] Comment on above: Performed By: #### C RP, RFP, CBC, FERR #### [facility] [address] [facility] [place] [address] Calcium [Mass/Vol] 8.8 mg/dL Normal 8.5-10.2 [facility] Comment on above: Result Comment: Felipe mmended reference range provided for this age range is published by the instrument lower in supervisor. Adult reference ranges have been verified. Performed By: #### C RP, RFP, CBC, FERR #### [facility] [address] [facility] [place] [address] Chloride [Moles/Vol] 105 mmol/L Normal 97-105 [facility] Comment on above: Performed By: #### C RP, RFP, CBC, FERR #### [address] [place] [address] CO2 [Moles/Vol] 25 mmol/L Normal 22-30 [facility] Comment on above: Performed By: #### C RP, RFP, CBC, FERR #### [address] [place] [address] Creatinine [Mass/Vol] 0.83 mg/dL Normal 0.58-0.96 [facility] Comment on above: Performed By: #### C RP, RFP, CBC, FERR #### [address] [place] [address] eGFR- Amer. >60 Normal >60 [facility] Comment on above: Performed By: #### C RP, RFP, CBC, FERR #### [address] [place] [address] eGFR-All Other Races >60 Normal >60 [facility] Comment on above: Result Comment: eGFR (Estimated GFR) Units of measure: mL/min/1.73 meters squared eGFR is derived from the reexpressed MDRD Study equation using the following parameters: serum creatinine, age, gender and race. The creatinine assay has been calibrated to be traceable to IDMS. An eGFR <60 mL/min/1.73m2 for >3 months is consistent with chronic kidney disease. Refer to KDOQI guidelines for clinical interpretation. In patients with unstable renal function, e.g. those with acute kidney injury, the eGFR may not accurately reflect actual GFR. Performed By: #### C RP, RFP, CBC, FERR #### [address] [place] [address] Glucose [Mass/Vol] 90 mg/dL Normal 74-99 [facility] Comment on above: Performed By: #### C RP, RFP, CBC, FERR #### [facility] [address] [place] [address] Phosphate [Mass/Vol] 2.9 mg/dL Normal 2.5-4.5 [facility] Comment on above: Performed By: #### C RP, RFP, CBC, FERR #### [facility] [address] [facility] [place] [address] Potassium [Moles/Vol] 3.5 mmol/L Low 3.7-5.1 [facility] Comment on above: Performed By: #### C RP, RFP, CBC, FERR #### [facility] [id number] [place] [address] [place] [address] Sodium [Moles/Vol] 140 mmol/L Normal 136-144 [facility] Comment on above: Performed By: #### C RP, RFP, CBC, FERR #### [address] [place] [address] Urea nitrogen [Mass/Vol] 19 mg/dL Normal 7-21 [facility] Comment on above: Result Comment: Felipe mmended reference range provided for this age range is published by the instrument lower in supervisor. Adult reference ranges have been verified. Performed By: #### C RP, RFP, CBC, FERR #### [address] [place] [address] C-Reactive Proteinon 021 C-Reactive Protein 2.1 mg/dL High <0.9 [facility] Comment on above: Performed By: #### R FP, FERR, CBC, CRP ####[facility] [place] [address] [place] [phone] CBCon 04-21-2021 Absolute nRBC <0.01 Normal <0.01 [facility] Comment on above: Performed By: #### R FP, FERR, CBC, CRP #### [address] [place] [address] Erythrocyte distribution width (RBC) [Ratio] 12.9 % Normal 11.5-15.0 [facility] Comment on above: Performed By: #### R FP, FERR, CBC, CRP #### [address] [place] [address] Hematocrit (Bld) [Volume fraction] 37.9 % Normal 36.0-46.0 [facility] Comment on above: Performed By: #### R FP, FERR, CBC, CRP #### [address] [place] [address] Hemoglobin (Bld) [Mass/Vol] 12.6 g/dL Normal 11.5-15.5 [facility] Comment on above: Performed By: #### R FP, FERR, CBC, CRP #### [address] [place] [address] MCH 30.1 pG Normal 26.0-34.0 [facility] Comment on above: Performed By: #### R FP, FERR, CBC, CRP #### [address] [place] [address] MCHC (RBC) [Mass/Vol] 33.2 g/dL Normal 30.5-36.0 [facility] Comment on above: Performed By: #### R FP, FERR, CBC, CRP #### [address] [place] [address] MCV (RBC) [Entitic vol] 90.7 fL Normal 80.0-100.0 [facility] Comment on above: Performed By: #### R FP, FERR, CBC, CRP #### [address] [place] [address] Platelet mean volume (Bld) [Entitic vol] 9.0 fL Normal 9.0-12.7 [facility] Comment on above: Performed By: #### R FP, FERR, CBC, CRP #### [address] [place] [address] Platelets (Bld) [#/Vol] 472 10*3/uL High 150-400 [facility] Comment on above: Performed By: #### R FP, FERR, CBC, CRP #### [facility] [address] [facility] [place] [address] RBC (Bld) [#/Vol] 4.18 10*6/uL Normal 3.90-5.20 [facility] Comment on above: Performed By: #### R FP, FERR, CBC, CRP #### [facility] [address] [place] [address] WBC (Bld) [#/Vol] 9.21 10*3/uL Normal 3.70-11.00 [facility] Comment on above: Performed By: #### R FP, FERR, CBC, CRP #### [facility] [address] [place] [address] CONSULT PROGon 04-21-2021 CONSULT PROG HNO ID: [id number] Author: Afsaneh Heard MD Service: Infectious Disease Author Type: Physician Type: Consult Progress Note Filed: 04/21/2021 9:23 AM Note Text: CONSULT PROGRESS NOTE Seen for COVID CONSULTING SERVICE: infectious disease ASSESSMENT AND PLAN unvaccinated 65 YO lady with severe sepsis (POA) due to COVID infection with?viral PNA S/P negative CTA for PE on 04/16 At risk for deterioration given her age AND breast CA Completed 1 wk of zosyn on 04/17 ,will improved repeat procal for presumed superimposed bacterial PNA Done with 10 days of ??dexa?on 04/20 AND??she has completed a 5 day course of remdesivir on 04/15 I will be off 04/22 thru 04/25,Dr Landin will be covering? SUBJECTIVE INTERVAL HPI: states feels better overall today OBJECTIVE PHYSICAL EXAM: Afebrile,down to 5 L NC seen from outside the room to help preserve PPE AND decrease risk of exposure in this pandemic Answering questions appropriately, No acute distress Anicteric sclera No respiratory distress abd-protuberant DATA: CRP better AFSANEH HEARD M.D [facility] [phone] [facility] Ferritinon 04-21-2021 Ferritin [Mass/Vol] 393.8 ng/mL High 14.7-205.1 [facility] Comment on above: Performed By: #### R FP, FERR, CBC, CRP ####[facility] [facility], [place] [phone] NURSING PROGon 04-21-2021 NURSING PROG HNO ID: [id number] Author: Radha Clements RN Service: ? Author Type: Registered Nurse Type: Nursing Progress Note Filed: 04/21/2021 3:45 PM Note Text: Nursing Progress Note Patient Name: Bo Monteiro Patient Location: [id number] 2 Daily Note: 0720 Receive bedside report from off going RN. Assumed care of patient. 0845 Patient seen by . will try to wean oxygen to 5L. 0850 Patient AANDO3. Medication given as schedule and assessment complete as chart. Oxygen 5L via NC. No sign of respiratory distress noted. Telemetry maintained in SR. External cathter in place draining yellow urine. Bed rails x3. Call light within reach. Will continue to monitor. 1130 Patient work with PT. Patient is able to sit on the bedside chair for 5 minutes. However, patient getting pain on her right middle upper back, sweat , and sob. PT and this RN put the patient back to bed. Continue to monitor at bedside. 1140 Patient resting in bed and states that I feels better and pain goes away. Patient resting in bed. Pulse ox is 95% on 5L. Will continue to monitor. 1421 Assist patient sit on the edge of the bed. At bedside with patient. Patient is doing good sitting so far. 1429 assist patient back to bed. Will continue to monitor. This note was completed by: Radha Clements [facility] NUTRITIONon 04-21-2021 NUTRITION HNO ID: [id number] Author: Rehana Garcia RD Service: Nutrition Therapy Author Type: Registered Dietitian Type: Nutrition Filed: 04/21/2021 12:10 PM Note Text: NUTRITION THERAPY PROGRESS NOTE SERVICE DATE: 04/21/2021 SERVICE TIME: 1000 Nutrition Assessment: Recommended Malnutrition Diagnosis: Mild Protein-Calorie Malnutrition (04/17/21 0858 : Phyllis Esqueda RD) Estimated kilocalorie needs: [id number] Calorie Calculation Method: 11-14 kcals/kg Estimated protein needs (grams): 96-120 Grams protein determined by: 2.0 - 2.5 g/kg;[place] body weight Care Plan: Continue current diet Supplements: Ensure Clear;Zone Perfect Bar Monitor and Evaluation: Meet greater than 75% of estimated needs;Monitor labs, I/Os, vital signs, weight;Monitor bowel function Interval History: patient appetite and intakes improving >75% past few days. Continue supplements. +bowel function, sometimes watery stools. Anthropometrics: Height: 154.9 cm (5' 1) Weight: 90.2 kg (198 lb 13.7 oz) Dosing Weight: 90.2 kg (198 lb 13.7 oz) Usual Weight: 84 kg (185 lb 3 oz) Body mass index is 37.57 kg/m?. Obese Intake History: Current Intake: Greater than 75% estimated energy needs Over: last few days Diet Orders (From admission, onward) Start Ordered 04/17/21 0830 DIET SUPPLEMENTS START NOW Question Answer Comment Supplement 1 ENSURE CLEAR MIXED MAY Supplement 1 Frequency 3. LUNCH Supplement 2 ZONE BAR OATMEAL CHOCOLATE CHUNK Supplement 2 Frequency 5. DINNER 04/17/21 0826 04/11/21 0600 DIET HEART HEALTHY START NOW Question: Heart Healthy Answer: 4 GM SODIUM (<200 MG CHOL / LOW SAT FAT) 04/11/21 0546 MNT Billing Type: Re-assess/15 min 2 units SIGNATURE: Rehana Garcia RD PATIENT NAME: Bo Monteiro DATE: April 21, 2021 TIME: 12:09 PM PAGER: [phone] [facility] Renal Function Panelon 04-21 Albumin [Mass/Vol] 3.4 g/dL Low 4.0-4.9 [facility] Comment on above: Performed By: #### R FP, FERR, CBC, CRP ####[place] [address] [facility] [facility] [place] [phone] Anion gap [Moles/Vol] 7 mmol/L Normal 0-15 [facility] Comment on above: Performed By: #### R FP, FERR, CBC, CRP ####[address] [place]., [place] [phone] Calcium [Mass/Vol] 8.8 mg/dL Normal 8.5-10.2 [facility] Comment on above: Result Comment: Felipe mmended reference range provided for this age range is published by the instrument lower in supervisor. Adult reference ranges have been verified. Performed By: #### R FP, FERR, CBC, CRP ####[place] [address] [address] [place]., [place] [phone] Chloride [Moles/Vol] 106 mmol/L High 97-105 [facility] Comment on above: Performed By: #### R FP, FERR, CBC, CRP ####[place] [address] [address] [facility] [place] [phone] CO2 [Moles/Vol] 26 mmol/L Normal 22-30 [facility] Comment on above: Performed By: #### R FP, FERR, CBC, CRP ####[place] [address] [address] [place] [phone] Creatinine [Mass/Vol] 0.68 mg/dL Normal 0.58-0.96 [facility] Comment on above: Performed By: #### R FP, FERR, CBC, CRP ####[place] [address] [facility] [place] [phone] eGFR- Amer. >60 Normal >60 [facility] Comment on above: Performed By: #### R FP, FERR, CBC, CRP ####[place] [address] [facility] [facility] [place] [phone] eGFR-All Other Races >60 Normal >60 [facility] Comment on above: Result Comment: eGFR (Estimated GFR) Units of measure: mL/min/1.73 meters squared eGFR is derived from the reexpressed MDRD Study equation using the following parameters: serum creatinine, age, gender and race. The creatinine assay has been calibrated to be traceable to IDMS. An eGFR <60 mL/min/1.73m2 for >3 months is consistent with chronic kidney disease. Refer to KDOQI guidelines for clinical interpretation. In patients with unstable renal function, e.g. those with acute kidney injury, the eGFR may not accurately reflect actual GFR. Performed By: #### R FP, FERR, CBC, CRP ####[address] [place] [phone] Glucose [Mass/Vol] 94 mg/dL Normal 74-99 [facility] Comment on above: Performed By: #### R FP, FERR, CBC, CRP ####[address] [place] [phone] Phosphate [Mass/Vol] 2.7 mg/dL Normal 2.5-4.5 [facility] Comment on above: Performed By: #### R FP, FERR, CBC, CRP ####[address] [place] [phone] Potassium [Moles/Vol] 3.8 mmol/L Normal 3.7-5.1 [facility] Comment on above: Performed By: #### R FP, FERR, CBC, CRP ####[address] [place] [phone] Sodium [Moles/Vol] 139 mmol/L Normal 136-144 [facility] Comment on above: Performed By: #### R FP, FERR, CBC, CRP ####[address] [place]., [place] [phone] Urea nitrogen [Mass/Vol] 20 mg/dL Normal 7-21 [facility] Comment on above: Result Comment: Felipe mmended reference range provided for this age range is published by the instrument lower in supervisor. Adult reference ranges have been verified. Performed By: #### R FP, FERR, CBC, CRP ####[facility] [place], [place] [phone] THERAPY NTon 04-21-2021 THERAPY NT HNO ID: [id number] Author: Stevo Fallon, PT Service: ? Author Type: Physical Therapist Type: Therapy (PT/OT/Speech/Resp) Filed: 04/21/2021 2:33 PM Note Text: Physical Therapy Re-Evaluation SERVICE DATE: 04/21/2021 SERVICE TIME: 1130 to 1215 ROOM: [place] [address] Recommended Discharge Disposition: Subacute/SNF Recommended Discharge Disposition Comments: Pt continues to demonstrate significant decline in functional endurance, strength and activity tolerance limiting patient's ability to perform ADLs and IADLs. Skilled PT in SNF setting to improve patient's functional endurance, strength and ability to perform ADLs and IADLs with increased independence. Potential for home going with Home PT pending improved oxygenation status and improved functional endurance and activity tolerance. Recommended Discharge Disposition Due to: Patient requires daily, facility-based rehabilitation from at least one discipline due to:;ADL impairment resulting in caregiver dependence;decline in functional status requiring daily skilled care Anticipated Discharge Needs: Undetermined Recommended Discharge Equipment: To Be Determined PT 6 Clicks Score: 17 Precautions/Activity Restrictions: Lines/Tubes/Drains;Fall Risk Precaution/Activity Restriction Comments: monitor SpO2 Isolation Type: Contact AND Droplet Precautions-Plus Eyewear Current Hospital Course: A 65 y/o female pt admitted for SOB.+COVID. Reason for Hospital Admission: COVID 19 Relevant Past Medical History: Breast Cancer- lumpectomy, still doing chemotherapy, hypertension, PVCs Response to Therapy Interventions: Good participation in activities, Low activity tolerance, Requires additional time to complete activities Continue skilled needs due to: Functional mobility/skill impairments, Continued monitoring of vital signs during mobility required Physical Therapy Problem List: Education Deficit;Safety Deficits;Decreased Strength;Functional Mobility Impairment;Balance Impaired Treatment Interventions: Education;Self Care / Home Management;Energy Conservation Training;Strengthening;Func tional Mobility Training;Balance Training Plan for next visit: Bed mobility, Gait training, Exercise instruction/handout, Standing Balance, Standing Tolerance, Sitting balance, Walker Training, Sit to Stand Transfers Home Environment Patient Lives With: Significant Other Assistance Available: 24 Hour Entry To Home: No Stairs Tub/Shower Type: accessible walk in shower with grab bar and shower chair Laundry: first floor laundry Equipment Owned: Cane;Standard Walker Prior Functional Level: Within Functional Limits Prior Functional Level Comments: Ind with ADLs, ambulation and IADLs Patient Report: pt pleasant and cooperative with PT this date. Per RN, pt okay to work with PT this date. Per pt, pt's spouse also COVID positive on ventilator at another hospital. My goal is to be able to see my . CURRENT FUNCTIONAL STATUS: Most recent performance Current Functional Mobility Assist Level Additional Information Rolling Supine to Sit Contact Guard Assistance Sit to Supine Contact Guard Assistance Scooting Contact Guard Assistance Sit to Stand Minimal Assistance;Additional Information Light min A for sit to stand with RW use from bedside. Pt reportin initial lightheadedness that resolved with sitting in room chair after bed to chair transfer. Stand to Sit Contact Guard Assistance Bed to Chair Minimal Assistance;Additional Information Bed To Chair Transfer Type: Stepping Bed To Chair Transfer Equipment: Wheeled Walker Min A for transfer and VCs/TCs for RW mangement for safety during bed to/from chair transfer. Pt observed to be diaphoretic after sitting in room chair for 5 minutes with pt reporting increased mid back and RUQ chest pain rated at 6/10. RN notified. Pt assisted from room chair to bed with resolution of symptoms and pain. RN present. Pt O2 sats decreased from 94% on 5 L to 87% after bed to chair transfer with pt reporting 8/10 shortness of breath after transfer using modified RPE scale. Pt education and performance of pursed lipped breathing technqiue throughout session. Toilet/Commode Gait Minimal Assistance (bed to/from chair transfers) Gait Device: Wheeled Walker Gait Distance (feet): 4 ft Stairs Curb Step Car Transfer Blank julian indicate activity not attempted General Deviations/Observations: Celi decreased;Difficulty changing direction/turning;Flexed trunk posture;Step length decreased Vital Signs Pre Assessment: SpO2, O2 Equipment, RPE/Modified Peña Scale Pre SpO2: 94 Pre O2 Equipment: Nasal Cannula Pre Oxygen Requirement: 5 L Pre RPE/Modified PEÑA Scale: 0-Nothing at all Intra Assessment 1: SpO2 Intra 1, Oxygen Equipment Intra 1, RPE/Modified Peña Scale Intra 1 (after bed to chair transfer with RW use) Intra SpO2 1: 87 Intra O2 Equipment 1: Nasal Cannula Intra Oxygen Requirement 1: 5 L (more content not included)... Normal [facility] CBCon 04-20-2021 Absolute nRBC <0.01 Normal <0.01 [facility] Comment on above: Performed By: #### C RP, RFP, CBC, FERR #### [address] [place] [address] Erythrocyte distribution width (RBC) [Ratio] 13.0 % Normal 11.5-15.0 [facility] Comment on above: Performed By: #### C RP, RFP, CBC, FERR #### [address] [place] [address] Hematocrit (Bld) [Volume fraction] 35.8 % Low 36.0-46.0 [facility] Comment on above: Performed By: #### C RP, RFP, CBC, FERR #### [address] [place] [address] Hemoglobin (Bld) [Mass/Vol] 12.0 g/dL Normal 11.5-15.5 [facility] Comment on above: Performed By: #### C RP, RFP, CBC, FERR #### [address] [place] [address] MCH 30.2 pG Normal 26.0-34.0 [facility] Comment on above: Performed By: #### C RP, RFP, CBC, FERR #### [address] [place] [address] MCHC (RBC) [Mass/Vol] 33.5 g/dL Normal 30.5-36.0 [facility] Comment on above: Performed By: #### C RP, RFP, CBC, FERR #### [address] [place] [address] MCV (RBC) [Entitic vol] 90.2 fL Normal 80.0-100.0 [facility] Comment on above: Performed By: #### C RP, RFP, CBC, FERR #### [address] [place] [address] Platelet mean volume (Bld) [Entitic vol] 8.9 fL Low 9.0-12.7 [facility] Comment on above: Performed By: #### C RP, RFP, CBC, FERR #### [address] [place] [address] Platelets (Bld) [#/Vol] 442 10*3/uL High 150-400 [facility] Comment on above: Performed By: #### C RP, RFP, CBC, FERR #### [address] [place] [address] RBC (Bld) [#/Vol] 3.97 10*6/uL Normal 3.90-5.20 [facility] Comment on above: Performed By: #### C RP, RFP, CBC, FERR #### [address] [place] [address] WBC (Bld) [#/Vol] 7.32 10*3/uL Normal 3.70-11.00 [facility] Comment on above: Performed By: #### C RP, RFP, CBC, FERR #### [address] [place] [address] CONSULT PROGon 04-20-2021 CONSULT PROG HNO ID: [id number] Author: Afsaneh Heard MD Service: Infectious Disease Author Type: Physician Type: Consult Progress Note Filed: 04/20/2021 10:33 AM Note Text: CONSULT PROGRESS NOTE Seen for COVID CONSULTING SERVICE: infectious disease ASSESSMENT AND PLAN unvaccinated 65 YO lady with severe sepsis (POA) due to COVID infection with?viral PNA Transferred back to ICU over the weekend with respiratory distress-S/P negative CTA for PE on 8/29 At risk for deterioration given her age AND breast CA Completed 1 wk of zosyn on 04/17 ,will improved repeat procal for presumed superimposed bacterial PNA Last day of ??dexa? AND??she has completed a 5 day course of remdesivir on 04/15 Will trend inflammatory markers AND continue supportive measures SUBJECTIVE INTERVAL HPI: states feels better overall today OBJECTIVE PHYSICAL EXAM: Afebrile,down to 6L NC seen from outside the room to help preserve PPE AND decrease risk of exposure in this pandemic Answering questions appropriately, No acute distress Anicteric sclera No respiratory distress abd-protuberant DATA: CRP better AFSANEH HEARD M.D [facility] [phone] [facility] NURSING PROGon 04-20-2021 NURSING PROG HNO ID: [id number] Author: Alondra Rivas RN Service: Nursing Author Type: Registered Nurse Type: Nursing Progress Note Filed: 04/20/2021 7:51 PM Note Text: Nursing Progress Note Patient Name: Bo Monteiro Patient Location: [id number] 2 Daily Note: 1930 Assumed care of patient. This note was completed by: Alondra Rivas [facility] NURSING PROG HNO ID: [id number] Author: Radha Clements RN Service: ? Author Type: Registered Nurse Type: Nursing Progress Note Filed: 04/20/2021 2:45 PM Note Text: Nursing Progress Note Patient Name: Bo Monteiro Patient Location: [id number] 2 Daily Note: 1350 Patient transfer to room 455-2 from ICU. Patient AANDOx3. Assessment complete as chart. Oxygen 5L via NC. No sing of respiratory distress noted. Telemetry maintained in SR. External catheter in place. No pain or c/o at this time. Bed rails upx3. Call light within reach. Will continue to monitor. [address] Pulido. This note was completed by: Radha Clements Normal [facility] Renal Function Panelon 04-20 Albumin [Mass/Vol] 3.2 g/dL Low 4.0-4.9 [facility] Comment on above: Performed By: #### C RP, RFP, CBC, FERR #### [facility] [address] [facility] [place] [address] Anion gap [Moles/Vol] 9 mmol/L Normal 0-15 [facility] Comment on above: Performed By: #### C RP, RFP, CBC, FERR #### [facility] [address] [facility] [place] [address] Calcium [Mass/Vol] 8.7 mg/dL Normal 8.5-10.2 [facility] Comment on above: Result Comment: Felipe mmended reference range provided for this age range is published by the instrument lower in supervisor. Adult reference ranges have been verified. Performed By: #### C RP, RFP, CBC, FERR #### [facility] [address] [facility] [place] [address] Chloride [Moles/Vol] 105 mmol/L Normal 97-105 [facility] Comment on above: Performed By: #### C RP, RFP, CBC, FERR #### [facility] [address] [facility] [place] [address] CO2 [Moles/Vol] 25 mmol/L Normal 22-30 [facility] Comment on above: Performed By: #### C RP, RFP, CBC, FERR #### [facility] [address] [facility] [place] [address] Creatinine [Mass/Vol] 0.80 mg/dL Normal 0.58-0.96 [facility] Comment on above: Performed By: #### C RP, RFP, CBC, FERR #### [facility] [address] [facility] [place] [address] eGFR- Amer. >60 Normal >60 [facility] Comment on above: Performed By: #### C RP, RFP, CBC, FERR #### [facility] [address] [facility] [place] [address] eGFR-All Other Races >60 Normal >60 [facility] Comment on above: Result Comment: eGFR (Estimated GFR) Units of measure: mL/min/1.73 meters squared eGFR is derived from the reexpressed MDRD Study equation using the following parameters: serum creatinine, age, gender and race. The creatinine assay has been calibrated to be traceable to IDMS. An eGFR <60 mL/min/1.73m2 for >3 months is consistent with chronic kidney disease. Refer to KDOQI guidelines for clinical interpretation. In patients with unstable renal function, e.g. those with acute kidney injury, the eGFR may not accurately reflect actual GFR. Performed By: #### C RP, RFP, CBC, FERR #### [facility] [address] [facility] [place] [address] Glucose [Mass/Vol] 85 mg/dL Normal 74-99 [facility] Comment on above: Performed By: #### C RP, RFP, CBC, FERR #### [facility] [address] [facility] [place] [address] Phosphate [Mass/Vol] 3.0 mg/dL Normal 2.5-4.5 [facility] Comment on above: Performed By: #### C RP, RFP, CBC, FERR #### [facility] [address] [facility] [place] [address] Potassium [Moles/Vol] 3.8 mmol/L Normal 3.7-5.1 [facility] Comment on above: Performed By: #### C RP, RFP, CBC, FERR #### [facility] [address] [facility]., [place] [id number] Sodium [Moles/Vol] 139 mmol/L Normal 136-144 [facility] Comment on above: Performed By: #### C RP, RFP, CBC, FERR #### [facility] [address] [facility] [place]., [place] [id number] Urea nitrogen [Mass/Vol] 18 mg/dL Normal 7-21 [facility] Comment on above: Result Comment: Felipe mmended reference range provided for this age range is published by the instrument lower in supervisor. Adult reference ranges have been verified. Performed By: #### C RP, RFP, CBC, FERR #### [facility] [address] [place] [address] C-Reactive Proteinon 021 C-Reactive Protein 3.7 mg/dL High <0.9 [facility] Comment on above: Performed By: #### C RP, RFP, CBC, FERR #### [facility] [address] [place] [address] CASE MANAGEMon 04-19-2021 CASE MANAGEM HNO ID: [id number] Author: Zehra Jones RN Service: Nursing Author Type: Registered Nurse Type: Care Mgt Progress Note Filed: 04/19/2021 12:37 PM Note Text: CARE MANAGEMENT PROGRESS NOTE SERVICE DATE: 04/19/2021 SERVICE TIME: 1230 LOS: 8 days Needs Prior to Discharge: To Be Determined Chart reviewed. Pt remains in ICU- back down to 6L NC. Provided pt's daughter Travis with list of LTACHs in the event it's appropriate, though at this time appears pt will be appropriate for SNF still. ? Noted DC planning has been for [facility]- sent updates. CM will continue to follow and assist with discharge planning. ? SIGNATURE: Zehra Jones RN PATIENT NAME: Bo Monteiro DATE: April 19, 2021 TIME: 12:35 PM PAGER/CONTACT #: - Normal [facility] CBCon 04-19-2021 Absolute nRBC <0.01 Normal <0.01 [facility] Comment on above: Performed By: #### C RP, RFP, CBC, FERR #### [address] [place] [address] Erythrocyte distribution width (RBC) [Ratio] 13.0 % Normal 11.5-15.0 [facility] Comment on above: Performed By: #### C RP, RFP, CBC, FERR #### [address] [place] [address] Hematocrit (Bld) [Volume fraction] 36.3 % Normal 36.0-46.0 [facility] Comment on above: Performed By: #### C RP, RFP, CBC, FERR #### [address] [place] [address] Hemoglobin (Bld) [Mass/Vol] 12.2 g/dL Normal 11.5-15.5 [facility] Comment on above: Performed By: #### C RP, RFP, CBC, FERR #### [address] [place] [address] MCH 29.9 pG Normal 26.0-34.0 [facility] Comment on above: Performed By: #### C RP, RFP, CBC, FERR #### [address] [place] [address] MCHC (RBC) [Mass/Vol] 33.6 g/dL Normal 30.5-36.0 [facility] Comment on above: Performed By: #### C RP, RFP, CBC, FERR #### [address] [place] [address] MCV (RBC) [Entitic vol] 89.0 fL Normal 80.0-100.0 [facility] Comment on above: Performed By: #### C RP, RFP, CBC, FERR #### [address] [place] [address] Platelet mean volume (Bld) [Entitic vol] 9.2 fL Normal 9.0-12.7 [facility] Comment on above: Performed By: #### C RP, RFP, CBC, FERR #### [facility] [address] [place] [address] Platelets (Bld) [#/Vol] 465 10*3/uL High 150-400 [facility] Comment on above: Performed By: #### C RP, RFP, CBC, FERR #### [address] [place] [address] RBC (Bld) [#/Vol] 4.08 10*6/uL Normal 3.90-5.20 [facility] Comment on above: Performed By: #### C RP, RFP, CBC, FERR #### [address] [place] [address] WBC (Bld) [#/Vol] 9.24 10*3/uL Normal 3.70-11.00 [facility] Comment on above: Performed By: #### C RP, RFP, CBC, FERR #### [address] [place] [address] CONSULTon 04-19-2021 CONSULT HNO ID: [id number] Author: Ty Pulido MD Service: General Internal Medicine Author Type: Physician Type: Consults Filed: 04/19/2021 9:27 PM Note Text: INTERNAL MEDICINE INITIAL CONSULT SERVICE DATE: 04/19/2021 SERVICE TIME: 11:30 AM REASON FOR CONSULT: Post ICU medical management REQUESTING PHYSICIAN: Dr. Moscoso PRIMARY CARE PHYSICIAN: Loan Disa APRN.[employer] Subjective HISTORY OF PRESENT ILLNESS: Ms. Monteiro is a 65 year old female who presents for shortness of breath due to viral pneumonia secondary to COVID-19 infection. Patient is unvaccinated. Initially patient was admitted to the medical floor and because of respiratory distress, was transferred to the ICU. Pulmonary embolism was ruled out. She was treated with 1 week of Zosyn follow-up presumed bacterial pneumonia because of high pro-Cooper Patient is currently much improved, she has finished remdesivir. She is on Decadron. She will finish this tomorrow. She is on 6 L of nasal cannula oxygen Patient is clearly somewhat depressed because her , who is also positive for COVID-19 is on a ventilator and his side of family have decided to make him comfort care PAST MEDICAL HISTORY Diagnosis Date - Arthritis - Breast cancer (HCC) 04/07/2020 - Ectopic fetus tube removed - Hypertension - Irregular heart beat PAST SURGICAL HISTORY Procedure Laterality Date - BREAST BIOPSY Right 04/05/2020 - BREAST LUMPECTOMY HX Right 04/22/2020 - SECTION HX x 3 - EXCISION OF CYST 1994 Right breast - IMPLANT CATH INSERTION (AG) 06/08/2020 FAMILY HISTORY Problem Relation Age of Onset - Hypertension Mother - Stroke Mother - Hypertension Maternal Grandmother - Stroke Maternal Grandmother - Emphysema Father - other (Lung Cancer) Father - Prostate Cancer Brother Social History Tobacco Use - Smoking status: Former Smoker Years: 1.00 Types: Cigarettes - Smokeless tobacco: Never Used - Tobacco comment: Pt smoked one pack weekly x 1 year. Vaping Use - Vaping Use: Never used Substance Use Topics - Alcohol use: Yes Alcohol/week: 12.0 standard drinks Types: 5 Glasses of Wine (5oz), 7 Glasses of wine per week - Drug use: No exemestane (AROMASIN) 25 mg tablet, Take 25 mg by mouth once daily., Disp: , Rfl: hydrOXYzine HCl (ATARAX) 25 mg tablet, Take 25 mg by mouth at bedtime as needed for anxiety., Disp: , Rfl: losartan (COZAAR) 50 mg tablet, Take 50 mg by mouth once daily., Disp: , Rfl: vitamin E, dl,tocopheryl acet, (VITAMIN E, DL, ACETATE,) 450 mg (1,000 unit) cap, Take 1 Cap-Full by mouth once daily., Disp: , Rfl: pentoxifylline ER (TRENTAL) 400 mg CR tablet, Take 400 mg by mouth three times daily with meals., Disp: , Rfl: amLODIPine (NORVASC) 5 mg tablet, Take 1 tablet by mouth once daily. (Patient taking differently: Take 2.5 mg by mouth once daily. ), Disp: 30 tablet, Rfl: 1 calcium carbonate/vitamin D3 (CALCIUM 600 + D ORAL), Take 1 tablet by mouth once daily. , Disp: , Rfl: aspirin 81 mg chewable tablet, aspirin 81 mg chewable tablet, Disp: , Rfl: Current Facility-Administered Medications Medication Dose Route Frequency - ondansetron 4 mg tab(s) (ZOFRAN) 4 mg ORAL q 6 H PRN Or - ondansetron (PF) 4 mg injection (ZOFRAN) 4 mg INTRAVENOUS q 6 H PRN - docusate sodium 100 mg cap(s) (COLACE) 100 mg ORAL BID PRN - magnesium hydroxide 400 mg/5 mL 30 mL (MOM) 30 mL ORAL DAILY PRN - enoxaparin 40 mg injection (LOVENOX) 40 mg SUBCUTANEOUS q 24 HR - NaCl 0.9% iv flush bag 20 mL INTRAVENOUS PRN - sodium chloride 0.9 % (flush) 3-5 mL (BD POSIFLUSH) 3-5 mL INTRAVENOUS q 12 H - sodium chloride 0.9 % (flush) 10 mL (BD POSIFLUSH) 10 mL INTRAVENOUS q 12 H - sodium chloride 0.9 % (flush) 20 mL (BD POSIFLUSH) 20 mL INTRAVENOUS PRN - heparin 100 unit/mL 500 Units injection 5 mL INTRAVENOUS PRN - exemestane 25 mg tab(s) (AROMASIN) 25 mg ORAL DAILY - acetaminophen 1,000 mg tab(s) (TYLENOL) 1,000 mg ORAL q 8 H PRN - albuterol HFA 90 mcg/actuation 2 Puff (PROVENTIL HFA, VENTOLIN HFA) 2 Puff INHALATION Q6H WHILE AWAKE - albuterol HFA 90 mcg/actuation 2 Puff (PROVENTIL HFA, VENTOLIN HFA) 2 Puff INHALATION q 4 H PRN - guaiFENesin-dextromethorpha n 100-10 mg/5 mL 10 mL oral liquid (ROBITUSSIN DM) 10 mL ORAL q 4 H PRN - benzonatate 100 mg cap(s) (TESSALON PERLE) 100 mg ORAL TID - traMADol 50 mg tab(s) (ULTRAM) 50 mg ORAL q 6 H PRN - dexAMETHasone 6 mg (DECADRON) 6 mg ORAL DAILY WITH BREAKFAST - iv contrast (radiology procedure) INTRAVENOUS DIRECTED PRN - calcium carbonate 750 mg chewable tab(s) (TUMS) 750 mg ORAL BID PRN - ALPRAZolam 0.125 mg tab(s) (XANAX) 0.125 mg ORAL TID PRN ALLERGIES Allergen Reactions - Oxycodone-Acetamino* Rash - Tape [Adhesive Tape* Rash COMPLETE REVIEW OF SYSTEMS: Minimal body aches No fever No loss of smell sensation Appetite is better No diarrhea No urinary symptoms Objective PHYSICAL EXAM: Patient Vitals for the past 2 (more content not included)... [facility] CONSULT PROGon 04-19-2021 CONSULT PROG HNO ID: [id number] Author: Afsaneh Heard MD Service: Infectious Disease Author Type: Physician Type: Consult Progress Note Filed: 04/19/2021 9:10 AM Note Text: CONSULT PROGRESS NOTE Seen for COVID CONSULTING SERVICE: infectious disease ASSESSMENT AND PLAN unvaccinated 65 YO lady with severe sepsis (POA) due to COVID infection with?viral PNA Transferred back to ICU over the weekend with respiratory distress-S/P negative CTA for PE on 04/16 At risk for deterioration given her age AND breast CA Completed 1 wk of zosyn on 04/17 ,will improved repeat procal for presumed superimposed bacterial PNA Continue ??dexa? thru 04/20 AND??she has completed a 5 day course of remdesivir on 04/15 Will trend inflammatory markers AND continue supportive measures SUBJECTIVE INTERVAL HPI: somnolent this morning,wanted to be left alone OBJECTIVE PHYSICAL EXAM: Afebrile,on 9L NC seen from outside the room to help preserve PPE AND decrease risk of exposure in this pandemic Answering questions appropriately, No acute distress Anicteric sclera No respiratory distress abd-protuberant DATA: CRP better AFSANEH HEARD M.D [facility] [phone] [facility] Ferritinon 04-19-2021 Ferritin [Mass/Vol] 402.7 ng/mL High 14.7-205.1 [facility] Comment on above: Performed By: #### C RP, RFP, CBC, FERR #### [facility] [address] [place] [address] NURSING PROGon 04-19-2021 NURSING PROG HNO ID: [id number] Author: Radha Gonzalez RN Service: ? Author Type: Registered Nurse Type: Nursing Progress Note Filed: 04/19/2021 7:36 PM Note Text: Nursing Progress Note Patient Name: Bo Monteiro Patient Location: -ICUA16/-ICUA-16 Daily Note: 1900 assumed care of pt This note was completed by: Radha Gonzalez [facility] NURSING PROG HNO ID: [id number] Author: Claudia Salas RN Service: ? Author Type: Registered Nurse Type: Nursing Progress Note Filed: 04/19/2021 11:27 AM Note Text: Nursing Progress Note Patient Name: Bo Monteiro Patient Location: [facility], [id number]/-ICUA-16 Daily Note: 0700 report from jyoti redd. 1130 dr. Moscoso at bedside, pt is transfer to telemetry This note was completed by: Claudia Salas [facility] Renal Function Panelon 04-19 Albumin [Mass/Vol] 3.3 g/dL Low 4.0-4.9 [facility] Comment on above: Performed By: #### C RP, RFP, CBC, FERR #### [facility] [address] [facility] [place] [address] Anion gap [Moles/Vol] 10 mmol/L Normal 0-15 [facility] Comment on above: Performed By: #### C RP, RFP, CBC, FERR #### [facility] [address] [facility] [place] [address] Calcium [Mass/Vol] 8.8 mg/dL Normal 8.5-10.2 [facility] Comment on above: Result Comment: Felipe mmended reference range provided for this age range is published by the instrument lower in supervisor. Adult reference ranges have been verified. Performed By: #### C RP, RFP, CBC, FERR #### [facility] [address] [facility] [place] [address] Chloride [Moles/Vol] 105 mmol/L Normal 97-105 [facility] Comment on above: Performed By: #### C RP, RFP, CBC, FERR #### [address] [place] [address] CO2 [Moles/Vol] 24 mmol/L Normal 22-30 [facility] Comment on above: Performed By: #### C RP, RFP, CBC, FERR #### [address] [place] [address] Creatinine [Mass/Vol] 0.78 mg/dL Normal 0.58-0.96 [facility] Comment on above: Performed By: #### C RP, RFP, CBC, FERR #### [address] [place] [address] eGFR- Amer. >60 Normal >60 [facility] Comment on above: Performed By: #### C RP, RFP, CBC, FERR #### [address] [place] [address] eGFR-All Other Races >60 Normal >60 [facility] Comment on above: Result Comment: eGFR (Estimated GFR) Units of measure: mL/min/1.73 meters squared eGFR is derived from the reexpressed MDRD Study equation using the following parameters: serum creatinine, age, gender and race. The creatinine assay has been calibrated to be traceable to IDMS. An eGFR <60 mL/min/1.73m2 for >3 months is consistent with chronic kidney disease. Refer to KDOQI guidelines for clinical interpretation. In patients with unstable renal function, e.g. those with acute kidney injury, the eGFR may not accurately reflect actual GFR. Performed By: #### C RP, RFP, CBC, FERR #### [address] [place] [address] Glucose [Mass/Vol] 74 mg/dL Normal 74-99 [facility] Comment on above: Performed By: #### C RP, RFP, CBC, FERR #### [address] [place] [address] Phosphate [Mass/Vol] 2.8 mg/dL Normal 2.5-4.5 [facility] Comment on above: Performed By: #### C RP, RFP, CBC, FERR #### [address] [place] [address] Potassium [Moles/Vol] 3.9 mmol/L Normal 3.7-5.1 [facility] Comment on above: Performed By: #### C RP, RFP, CBC, FERR #### [address] [place] [address] Sodium [Moles/Vol] 139 mmol/L Normal 136-144 [facility] Comment on above: Performed By: #### C RP, RFP, CBC, FERR #### [address] [place] [address] Urea nitrogen [Mass/Vol] 17 mg/dL Normal 7-21 [facility] Comment on above: Result Comment: Felipe mmended reference range provided for this age range is published by the instrument lower in supervisor. Adult reference ranges have been verified. Performed By: #### C RP, RFP, CBC, FERR #### [address] [place] [address] CBCon 04-18-2021 Absolute nRBC <0.01 Normal <0.01 [facility] Comment on above: Performed By: #### C RP, RFP, CBC, FERR #### [address] [place] [address] Erythrocyte distribution width (RBC) [Ratio] 12.7 % Normal 11.5-15.0 [facility] Comment on above: Performed By: #### C RP, RFP, CBC, FERR #### [address] [place] [address] Hematocrit (Bld) [Volume fraction] 35.7 % Low 36.0-46.0 [facility] Comment on above: Performed By: #### C RP, RFP, CBC, FERR #### [address] [place] [address] Hemoglobin (Bld) [Mass/Vol] 12.2 g/dL Normal 11.5-15.5 [facility] Comment on above: Performed By: #### C RP, RFP, CBC, FERR #### [address] [place] [address] MCH 30.3 pG Normal 26.0-34.0 [facility] Comment on above: Performed By: #### C RP, RFP, CBC, FERR #### [address] [place] [address] MCHC (RBC) [Mass/Vol] 34.2 g/dL Normal 30.5-36.0 [facility] Comment on above: Performed By: #### C RP, RFP, CBC, FERR #### [address] [place] [address] MCV (RBC) [Entitic vol] 88.6 fL Normal 80.0-100.0 [facility] Comment on above: Performed By: #### C RP, RFP, CBC, FERR #### [address] [place] [address] Platelet mean volume (Bld) [Entitic vol] 9.0 fL Normal 9.0-12.7 [facility] Comment on above: Performed By: #### C RP, RFP, CBC, FERR #### [address] [place] [address] Platelets (Bld) [#/Vol] 451 10*3/uL High 150-400 [facility] Comment on above: Performed By: #### C RP, RFP, CBC, FERR #### [facility] [address] [facility] [place] [address] RBC (Bld) [#/Vol] 4.03 10*6/uL Normal 3.90-5.20 [facility] Comment on above: Performed By: #### C RP, RFP, CBC, FERR #### [facility] [address] [place] [address] WBC (Bld) [#/Vol] 8.40 10*3/uL Normal 3.70-11.00 [facility] Comment on above: Performed By: #### C RP, RFP, CBC, FERR #### [facility] [address] [place] [address] CONSULT PROGon 04-18-2021 CONSULT PROG HNO ID: [id number] Author: Afsaneh Heard MD Service: Infectious Disease Author Type: Physician Type: Consult Progress Note Filed: 04/18/2021 9:59 AM Note Text: CONSULT PROGRESS NOTE Seen for COVID CONSULTING SERVICE: infectious disease ASSESSMENT AND PLAN unvaccinated 65 YO lady with severe sepsis (POA) due to COVID infection with?viral PNA Transferred back to ICU over the weekend with respiratory distress-S/P negative CTA for PE on 04/16 At risk for deterioration given her age AND breast CA Completed 1 wk of zosyn on 04/17 ,will improved repeat procal for presumed superimposed bacterial PNA Continue ??dexa? thru 04/20 AND??she has completed a 5 day course of remdesivir on 04/15 Will trend inflammatory markers AND continue supportive measures SUBJECTIVE INTERVAL HPI: Denies any fever or chills, states feels less SOB this am OBJECTIVE PHYSICAL EXAM: Afebrile,on 12 L NC seen from outside the room to help preserve PPE AND decrease risk of exposure in this pandemic Answering questions appropriately, No acute distress Anicteric sclera No respiratory distress abd-protuberant DATA: WBC NL AFSANEH HEARD M.D [facility] [phone] Normal [facility] Procalcitoninon 04-18-2021 Procalcitonin 0.13 ng/mL High <0.09 [facility] Comment on above: Result Comment: For a guided interpretation of test results, please visit the Change in Procalcitonin Calculator, [email or web address]. Performed By: #### C RP, RFP, CBC, FERR #### [address] [place] [address] Renal Function Panelon 04-18 Albumin [Mass/Vol] 3.3 g/dL Low 4.0-4.9 [facility] Comment on above: Performed By: #### C RP, RFP, CBC, FERR #### [address] [place] [address] Anion gap [Moles/Vol] 9 mmol/L Normal 0-15 [facility] Comment on above: Performed By: #### C RP, RFP, CBC, FERR #### [address] [place] [address] Calcium [Mass/Vol] 8.8 mg/dL Normal 8.5-10.2 [facility] Comment on above: Result Comment: Felipe mmended reference range provided for this age range is published by the instrument lower in supervisor. Adult reference ranges have been verified. Performed By: #### C RP, RFP, CBC, FERR #### [facility] [id number] [place] [address] [place] [address] Chloride [Moles/Vol] 105 mmol/L Normal 97-105 [facility] Comment on above: Performed By: #### C RP, RFP, CBC, FERR #### [address] [place] [address] CO2 [Moles/Vol] 27 mmol/L Normal 22-30 [facility] Comment on above: Performed By: #### C RP, RFP, CBC, FERR #### [address] [place] [address] Creatinine [Mass/Vol] 0.80 mg/dL Normal 0.58-0.96 [facility] Comment on above: Performed By: #### C RP, RFP, CBC, FERR #### [facility] [address] [facility] [place] [address] eGFR- Amer. >60 Normal >60 [facility] Comment on above: Performed By: #### C RP, RFP, CBC, FERR #### [facility] [address] [facility] [place] [address] eGFR-All Other Races >60 Normal >60 [facility] Comment on above: Result Comment: eGFR (Estimated GFR) Units of measure: mL/min/1.73 meters squared eGFR is derived from the reexpressed MDRD Study equation using the following parameters: serum creatinine, age, gender and race. The creatinine assay has been calibrated to be traceable to IDMS. An eGFR <60 mL/min/1.73m2 for >3 months is consistent with chronic kidney disease. Refer to KDOQI guidelines for clinical interpretation. In patients with unstable renal function, e.g. those with acute kidney injury, the eGFR may not accurately reflect actual GFR. Performed By: #### C RP, RFP, CBC, FERR #### [facility] [address] [facility] [place] [address] Glucose [Mass/Vol] 87 mg/dL Normal 74-99 [facility] Comment on above: Performed By: #### C RP, RFP, CBC, FERR #### [facility] [address] [place] [address] Phosphate [Mass/Vol] 2.6 mg/dL Normal 2.5-4.5 [facility] Comment on above: Performed By: #### C RP, RFP, CBC, FERR #### [facility] [address] [facility] [place] [address] Potassium [Moles/Vol] 4.1 mmol/L Normal 3.7-5.1 [facility] Comment on above: Performed By: #### C RP, RFP, CBC, FERR #### [facility] [address] [place] [address] Sodium [Moles/Vol] 141 mmol/L Normal 136-144 [facility] Comment on above: Performed By: #### C RP, RFP, CBC, FERR #### [facility] [address] [facility] [place] [address] Urea nitrogen [Mass/Vol] 17 mg/dL Normal 7-21 [facility] Comment on above: Result Comment: Felipe mmended reference range provided for this age range is published by the instrument lower in supervisor. Adult reference ranges have been verified. Performed By: #### C RP, RFP, CBC, FERR #### [facility] [address] [place] [address] C-Reactive Proteinon 021 C-Reactive Protein 7.0 mg/dL High <0.9 [facility] Comment on above: Performed By: #### C BC, RFP, CRP, FERR ####[facility] [facility]., [place] [phone] CASE MANAGEMon 04-17-2021 CASE MANAGEM HNO ID: [id number] Author: Zehra Jones RN Service: Nursing Author Type: Registered Nurse Type: Care Mgt Progress Note Filed: 04/17/2021 12:54 PM Note Text: CARE MANAGEMENT PROGRESS NOTE SERVICE DATE: 04/17/2021 SERVICE TIME: 1245 LOS: 6 days Needs Prior to Discharge: To Be Determined Chart reviewed. Pt was transferred to ICU on the weekend d/t increasing SOB. She is now in ICU on 13L NC. Noted DC planning has been for [facility]. CM will continue to follow and assist with discharge planning. SIGNATURE: Zehra Jones RN PATIENT NAME: Bo Monteiro DATE: April 17, 2021 TIME: 12:48 PM PAGER/CONTACT #: - Normal [facility] CBCon 04-17-2021 Absolute nRBC <0.01 Normal <0.01 [facility] Comment on above: Performed By: #### C BC, RFP, CRP, FERR ####[address] [place] [phone] Erythrocyte distribution width (RBC) [Ratio] 12.7 % Normal 11.5-15.0 [facility] Comment on above: Performed By: #### C BC, RFP, CRP, FERR ####[address] [phone] Hematocrit (Bld) [Volume fraction] 36.9 % Normal 36.0-46.0 [facility] Comment on above: Performed By: #### C BC, RFP, CRP, FERR ####[address] [place] [phone] Hemoglobin (Bld) [Mass/Vol] 12.2 g/dL Normal 11.5-15.5 [facility] Comment on above: Performed By: #### C BC, RFP, CRP, FERR ####[address] [place] [phone] MCH 30.0 pG Normal 26.0-34.0 [facility] Comment on above: Performed By: #### C BC, RFP, CRP, FERR ####[address] [place] [phone] MCHC (RBC) [Mass/Vol] 33.1 g/dL Normal 30.5-36.0 [facility] Comment on above: Performed By: #### C BC, RFP, CRP, FERR ####[address] [place] [phone] MCV (RBC) [Entitic vol] 90.7 fL Normal 80.0-100.0 [facility] Comment on above: Performed By: #### C BC, RFP, CRP, FERR ####[address] [place] [phone] Platelet mean volume (Bld) [Entitic vol] 9.1 fL Normal 9.0-12.7 [facility] Comment on above: Performed By: #### C BC, RFP, CRP, FERR ####[address] [place] [phone] Platelets (Bld) [#/Vol] 381 10*3/uL Normal 150-400 [facility] Comment on above: Performed By: #### C BC, RFP, CRP, FERR ####[address] [place] [phone] RBC (Bld) [#/Vol] 4.07 10*6/uL Normal 3.90-5.20 [facility] Comment on above: Performed By: #### C BC, RFP, CRP, FERR ####[address] [place] [phone] WBC (Bld) [#/Vol] 7.82 10*3/uL Normal 3.70-11.00 [facility] Comment on above: Performed By: #### C BC, RFP, CRP, FERR ####[address] [place] [phone] CONSULT PROGon 04-17-2021 CONSULT PROG HNO ID: [id number] Author: Afsaneh Heard MD Service: Infectious Disease Author Type: Physician Type: Consult Progress Note Filed: 04/17/2021 9:46 AM Note Text: CONSULT PROGRESS NOTE Seen for COVID CONSULTING SERVICE: infectious disease ASSESSMENT AND PLAN unvaccinated 65 YO lady with severe sepsis (POA) due to COVID infection with?viral PNA Transferred back to ICU over the weekend with respiratory distress-S/P negative CTA for PE on 04/16 At risk for deterioration given her age AND breast CA May have a superimposed bacterial PNA,procal around 7-staph nasal swab with MSSA Day # 7 of 7 of zosyn,will repeat procal in am Continue ??dexa? thru 04/20 AND??she has completed a 5 day course of remdesivir on 04/15 Will trend inflammatory markers AND continue supportive measures SUBJECTIVE INTERVAL HPI: Denies any fever or chills, states feels less SOB this am OBJECTIVE PHYSICAL EXAM: Afebrile,on 12 L NC seen from outside the room to help preserve PPE AND decrease risk of exposure in this pandemic Answering questions appropriately, No acute distress Anicteric sclera No respiratory distress abd-protuberant DATA: CRP higher today AFSANEH HEARD M.D ID consultants [phone] [facility] Ferritinon 04-17-2021 Ferritin [Mass/Vol] 495.8 ng/mL High 14.7-205.1 [facility] Comment on above: Performed By: #### C BC, RFP, CRP, FERR ####[facility] [place], [place] [phone] NURSING PROGon 04-17-2021 NURSING PROG HNO ID: [id number] Author: Claudia Salas RN Service: ? Author Type: Registered Nurse Type: Nursing Progress Note Filed: 04/17/2021 9:01 AM Note Text: Nursing Progress Note Patient Name: Bo Monteiro Patient Location: [place] [address]/[place] [address] Daily Note: 07 report indra redd rn 0830 oxygen to nc 13l This note was completed by: Claudia Salas [facility] NUTRITIONon 04-17-2021 NUTRITION HNO ID: [id number] Author: Phyllis Esqueda RD Service: Nutrition Therapy Author Type: Registered Dietitian Type: Nutrition Filed: 04/17/2021 9:02 AM Note Text: NUTRITION THERAPY INITIAL ASSESSMENT SERVICE DATE: 04/17/2021 SERVICE TIME: 0800 Nutrition Assessment: Recommended Malnutrition Diagnosis: Mild Protein-Calorie Malnutrition In the context of: Acute Illness or Injury Based on: Insufficient Energy Intake Nutrition Diagnosis: Problem: Suboptimal oral intake Related to: Anorexia As evidenced by: Patient/family self-report;Intake records Estimated kilocalorie needs: [id number] Calorie Calculation Method: 11-14 kcals/kg Estimated protein needs (grams): 96-120 Grams protein determined by: 2.0 - 2.5 g/kg;[place] body weight Care Plan: Continue current diet Supplements: Ensure Clear;Zone Perfect Bar Vitamins and Minerals: Multivitamin with minerals Labs: BMP;CBC;Magnesium;Phosphoru s Monitor and Evaluation: Meet greater than 75% of estimated needs;Monitor bowel function;Monitor fluid/electrolyte balance;Monitor labs, I/Os, vital signs, weight Discharge Recommendations: Diet Diet: To be determined HPI: 65 year old F admitted for SOB 2/ COVID PNA. 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 Intake History: Nutrition Intake Prior to Admission: Greater than 75% estimated energy needs greater than or equal to 3 months Current Intake: Less than 75% estimated energy needs Over: 7 days Diet Orders (From admission, onward) Start Ordered 04/17/21 0830 DIET SUPPLEMENTS START NOW Question Answer Comment Supplement 1 ENSURE CLEAR MIXED MAY Supplement 1 Frequency 3. LUNCH Supplement 2 ZONE BAR OATMEAL CHOCOLATE CHUNK Supplement 2 Frequency 5. DINNER 04/17/21 0826 04/11/21 0600 DIET HEART HEALTHY START NOW Question: Heart Healthy Answer: 4 GM SODIUM (<200 MG CHOL / LOW SAT FAT) 04/11/21 0546 Anthropometrics: Height: 154.9 cm (5' 1) Weight: 90.2 kg (198 lb 13.7 oz) Dosing Weight: 90.2 kg (198 lb 13.7 oz) Usual Weight: 84 kg (185 lb 3 oz) Body mass index is 37.57 kg/m?. Obese Physical Exam: Subcutaneous fat loss: No fat loss Muscle loss: No muscle loss Potential micronutrient deficiency: No deficiency identified Edema/Ascites: Generalized GI Symptoms: Anorexia;Diarrhea Functional Status: Unable to assess Potential Signs of Inflammation: Hyperglycemia;High CRP;Hypoalbuminemia;Critica lly ill;Imaging studies;Microbiologic cultures MNT Billing Type: Initial Assess/15 min 3 units SIGNATURE: Phyllis Esqueda RD PATIENT NAME: Bo Monteiro DATE: April 17, 2021 TIME: 9:01 AM PAGER: [phone] Normal [facility] Renal Function Panelon 04-17 Albumin [Mass/Vol] 3.2 g/dL Low 4.0-4.9 [facility] Comment on above: Performed By: #### C BC, RFP, CRP, FERR ####[place] [id number] [place] [place] [phone] Anion gap [Moles/Vol] 8 mmol/L Normal 0-15 [facility] Comment on above: Performed By: #### C BC, RFP, CRP, FERR ####[place] [address] [place] [phone] Calcium [Mass/Vol] 8.8 mg/dL Normal 8.5-10.2 [facility] Comment on above: Result Comment: Felipe mmended reference range provided for this age range is published by the instrument lower in supervisor. Adult reference ranges have been verified. Performed By: #### C BC, RFP, CRP, FERR ####[place] [address] [place]., [place] [phone] Chloride [Moles/Vol] 102 mmol/L Normal 97-105 [facility] Comment on above: Performed By: #### C BC, RFP, CRP, FERR ####[place] [address] [place]., [place] [phone] CO2 [Moles/Vol] 27 mmol/L Normal 22-30 [facility] Comment on above: Performed By: #### C BC, RFP, CRP, FERR ####[place] [address] [place]., [place] [phone] Creatinine [Mass/Vol] 0.89 mg/dL Normal 0.58-0.96 [facility] Comment on above: Performed By: #### C BC, RFP, CRP, FERR ####[place] [address] [place] [phone] eGFR- Amer. >60 Normal >60 [facility] Comment on above: Performed By: #### C BC, RFP, CRP, FERR ####[address] [place] [phone] eGFR-All Other Races >60 Normal >60 [facility] Comment on above: Result Comment: eGFR (Estimated GFR) Units of measure: mL/min/1.73 meters squared eGFR is derived from the reexpressed MDRD Study equation using the following parameters: serum creatinine, age, gender and race. The creatinine assay has been calibrated to be traceable to IDMS. An eGFR <60 mL/min/1.73m2 for >3 months is consistent with chronic kidney disease. Refer to KDOQI guidelines for clinical interpretation. In patients with unstable renal function, e.g. those with acute kidney injury, the eGFR may not accurately reflect actual GFR. Performed By: #### C BC, RFP, CRP, FERR ####[address] [place] [phone] Glucose [Mass/Vol] 83 mg/dL Normal 74-99 [facility] Comment on above: Performed By: #### C BC, RFP, CRP, FERR ####[address] [place] [phone] Phosphate [Mass/Vol] 2.4 mg/dL Low 2.5-4.5 [facility] Comment on above: Performed By: #### C BC, RFP, CRP, FERR ####[address] [place] [phone] Potassium [Moles/Vol] 3.5 mmol/L Low 3.7-5.1 [facility] Comment on above: Performed By: #### C BC, RFP, CRP, FERR ####[address] [place] [phone] Sodium [Moles/Vol] 137 mmol/L Normal 136-144 [facility] Comment on above: Performed By: #### C BC, RFP, CRP, FERR ####[facility] [facility]., [place] [phone] Urea nitrogen [Mass/Vol] 15 mg/dL Normal 7-21 [facility] Comment on above: Result Comment: Felipe mmended reference range provided for this age range is published by the instrument lower in supervisor. Adult reference ranges have been verified. Performed By: #### C BC, RFP, CRP, FERR ####[address] [place] [phone] THERAPY NTon 04-17-2021 THERAPY NT HNO ID: [id number] Author: Ashwini Diallo PT Service: Physical Therapy Author Type: Physical Therapist Type: Therapy (PT/OT/Speech/Resp) Filed: 04/17/2021 6:28 AM Note Text: PHYSICAL THERAPY MISSED VISIT SERVICE DATE: 04/17/2021 SERVICE TIME: 624 to 625 ROOM: [place] [address] Attempted Treatment. Patient not seen due to Illness. ICU transfer 04/15/2021 due to increasing shortness of breath, required venti-mask at 50%, now on hi-flow nasal cannula 12-15L with periods of desaturation noted in MD notes. Will hold PT this date due to deterioration and return for re-assessment as able. SIGNATURE: Ashwini Diallo, PT PATIENT NAME: Bo Monteiro DATE: April 17, 2021 TIME: 6:26 AM Normal [facility] CBCon 04-16-2021 Absolute nRBC <0.01 Normal <0.01 [facility] Comment on above: Performed By: #### C RP, RFP, CBC, FERR #### [facility] [address] [place] [address] Erythrocyte distribution width (RBC) [Ratio] 12.9 % Normal 11.5-15.0 [facility] Comment on above: Performed By: #### C RP, RFP, CBC, FERR #### [facility] [address] [place] [address] Hematocrit (Bld) [Volume fraction] 35.8 % Low 36.0-46.0 [facility] Comment on above: Performed By: #### C RP, RFP, CBC, FERR #### [address] [place] [address] Hemoglobin (Bld) [Mass/Vol] 12.0 g/dL Normal 11.5-15.5 [facility] Comment on above: Performed By: #### C RP, RFP, CBC, FERR #### [address] [place] [address] MCH 30.1 pG Normal 26.0-34.0 [facility] Comment on above: Performed By: #### C RP, RFP, CBC, FERR #### [address] [place] [address] MCHC (RBC) [Mass/Vol] 33.5 g/dL Normal 30.5-36.0 [facility] Comment on above: Performed By: #### C RP, RFP, CBC, FERR #### [address] [place] [address] MCV (RBC) [Entitic vol] 89.7 fL Normal 80.0-100.0 [facility] Comment on above: Performed By: #### C RP, RFP, CBC, FERR #### [address] [place] [address] Platelet mean volume (Bld) [Entitic vol] 9.1 fL Normal 9.0-12.7 [facility] Comment on above: Performed By: #### C RP, RFP, CBC, FERR #### [address] [place] [address] Platelets (Bld) [#/Vol] 363 10*3/uL Normal 150-400 [facility] Comment on above: Performed By: #### C RP, RFP, CBC, FERR #### [address] [place] [address] RBC (Bld) [#/Vol] 3.99 10*6/uL Normal 3.90-5.20 [facility] Comment on above: Performed By: #### C RP, RFP, CBC, FERR #### [facility] [address] [facility] [place] [address] WBC (Bld) [#/Vol] 7.31 10*3/uL Normal 3.70-11.00 [facility] Comment on above: Performed By: #### C RP, RFP, CBC, FERR #### [facility] [address] [facility] [place] [address] CONSULT PROGon 04-16-2021 CONSULT PROG HNO ID: [id number] Author: Monroe Stevens MD Service: Infectious Disease Author Type: Physician Type: Consult Progress Note Filed: 04/16/2021 11:53 AM Note Text: INFECTIOUS DISEASES PROGRESS NOTE Subjective: still with cough and sob, no fevers/chills, feels better. Afebrile Interval History AND Relevant Results: no fevers Temp (24hrs), Av.1 ?C (98.7 ?F), Min:37 ?C (98.6 ?F), Max:37.1 ?C (98.8 ?F) WBC Date Value Ref Range Status 04/16/2021 7.31 3.70 - 11.00 k/uL Final 04/11/2021 11.65 (H) 3.70 - 11.00 k/uL Final Creatinine Date Value Ref Range Status 04/16/2021 0.89 0.58 - 0.96 mg/dL Final 04/14/2021 1.08 (H) 0.58 - 0.96 mg/dL Final CRP down to 5.1 VS: BP 137/75 Pulse (!) 55 Temp 37.1 ?C (98.8 ?F) (Oral) Resp 18 Ht 154.9 cm (5' 1) Wt 90.2 kg (198 lb 13.7 oz) SpO2 93% BMI 37.57 kg/m? Answering questions appropriately, No acute distress, looks tired Anicteric sclera Normal S1+S2, No murmurs/gallops/rubs No respiratory distress, clear to auscultation bilaterally on limited anterior lung exam ASSESSMENT AND PLAN unvaccinated 65 YO lady with severe sepsis (POA) due to?COVID infection with?viral PNA Transferred out of ICU on 04/12 -S/P negative CTA for PE Needing 4 L VM this am-At risk for deterioration given her??age AND?breast CA May have a superimposed bacterial PNA,procal around 7-staph nasal swab with MSSA Will maintain zosyn - day 5 of 7 for now Continue dexa? thru 04/20 AND??day # 5 of 5 of remdesivir (monitor CrCl AND LFTs closely) Will trend inflammatory markers AND continue supportive measures Normal [facility] CT CHEST W IVCON PEon 2020 CT CHEST W IVCON PE * * *Final Report* * * DATE OF EXAM: Apr 16 2021 4:00PM [facility] 0540 - CT CHEST W IVCON PE / PROCEDURE REASON: Shortness of breath * * * * Physician Interpretation * * * * EXAMINATION: CHEST CT WITH CONTRAST (PULMONARY EMBOLISM PROTOCOL) CLINICAL HISTORY: Shortness of breath, PE suspected, intermediate prob, positive D-dimer Technique: Spiral CT acquisition of the chest from the thoracic inlet to the upper abdomen following IV contrast. Axial 1 and 3 mm thick slices plus coronal and sagittal reformatted images. MQ: CTCP_5 Contrast: 80 mL Omnipaque [address] Radiation dose: Integrated Dose-length product (DLP) for this visit = 260 mGy*cm CT Dose Reduction Employed: Automated exposure control(AEC) and iterative recon Comparison: 04/11/21 RESULT: Limitations: None. Evaluation for thromboembolic disease: Nondiagnostic regions of segmental and subsegmental pulmonary arteries - Right heart chambers: No thromboembolic disease. - Main pulmonary arteries: No thromboembolic disease. - Lobar pulmonary arteries: No thromboembolic disease. - Segmental pulmonary arteries: No thromboembolic disease. - Subsegmental pulmonary arteries: No thromboembolic disease. - Additional pulmonary artery findings: The main pulmonary artery is normal in caliber. Lines, tubes, and devices: Left chest port catheter tip at the cavoatrial junction. Lung parenchyma and airways: Persistent bilateral lung opacities, some areas more confluent/consolidative compared to prior. Pleural space: Interval new small left pleural effusion. Lower neck, lymph nodes, and mediastinum: The imaged thyroid gland is normal. Mediastinal and hilar lymph nodes, largest right hilum 1.2 cm short axis image 78 Heart, pericardium, and thoracic vessels: The thoracic aorta is normal in caliber. Right atrial enlargement. No coronary artery atherosclerotic calcifications are noted, although the study is not optimized for coronary assessment. No pericardial effusion or thickening. Bones and soft tissues: No destructive bone lesion. Degenerative changes. Upper abdomen: Hepatic cysts Respiratory Therapist (topogram) images: No additional findings. IMPRESSION: No CT evidence of pulmonary embolism. Nondiagnostic regions of segmental and subsegmental pulmonary arteries Persistent bilateral lung opacities, some areas more confluent/consolidative compared to prior. Interval new small left pleural effusion. Mild mediastinal/hilar adenopathy, likely reactive Glass Melt Operator: RODO Transcribe Date/Time: Apr 16 2021 5:17P Dictated by : GIOVANI HANLEY MD This examination was interpreted and the report reviewed and electronically signed by: GIOVANI HANLEY MD on Apr 16 2021 5:27PM EST [id number] [facility] NURSING PROGon 04-16-2021 NURSING PROG HNO ID: [id number] Author: Claudia Salas RN Service: ? Author Type: Registered Nurse Type: Nursing Progress Note Filed: 04/16/2021 7:53 AM Note Text: Nursing Progress Note Patient Name: [facility] Monteiro [facility] Daily Note: 0700 report from jyoti redd. Pt awake, alert, oriented. States had restful evening. This note was completed by: Claudia Salas [facility] NURSING PROG HNO ID: [id number] Author: Radha Gonzalez RN Service: ? Author Type: Registered Nurse Type: Nursing Progress Note Filed: 04/16/2021 2:50 AM Note Text: Nursing Progress Note Patient Name: Bo Monteiro Patient Location: -[facility]16/-[facility]-16 Daily Note: 0000 assumed care of pt, received report from Norah Baxter RN This note was completed by: Radha Gonzalez Normal [facility] Renal Function Panelon 04-16 Albumin [Mass/Vol] 3.1 g/dL Low 4.0-4.9 [facility] Comment on above: Performed By: #### C RP, RFP, CBC, FERR #### [facility] [address] [facility] [place] [address] Anion gap [Moles/Vol] 9 mmol/L Normal 0-15 [facility] Comment on above: Performed By: #### C RP, RFP, CBC, FERR #### [facility] [address] [facility] [place] [address] Calcium [Mass/Vol] 8.5 mg/dL Normal 8.5-10.2 [facility] Comment on above: Result Comment: Felipe mmended reference range provided for this age range is published by the instrument lower in supervisor. Adult reference ranges have been verified. Performed By: #### C RP, RFP, CBC, FERR #### [facility] [address] [facility] [place] [address] Chloride [Moles/Vol] 104 mmol/L Normal 97-105 [facility] Comment on above: Performed By: #### C RP, RFP, CBC, FERR #### [facility] [address] [facility] [place] [address] CO2 [Moles/Vol] 26 mmol/L Normal 22-30 [facility] Comment on above: Performed By: #### C RP, RFP, CBC, FERR #### [facility] [address] [facility] [place] [address] Creatinine [Mass/Vol] 0.89 mg/dL Normal 0.58-0.96 [facility] Comment on above: Performed By: #### C RP, RFP, CBC, FERR #### [facility] [address] [facility] [place] [address] eGFR- Amer. >60 Normal >60 [facility] Comment on above: Performed By: #### C RP, RFP, CBC, FERR #### [facility] [address] [facility] [place] [address] eGFR-All Other Races >60 Normal >60 [facility] Comment on above: Result Comment: eGFR (Estimated GFR) Units of measure: mL/min/1.73 meters squared eGFR is derived from the reexpressed MDRD Study equation using the following parameters: serum creatinine, age, gender and race. The creatinine assay has been calibrated to be traceable to IDMS. An eGFR <60 mL/min/1.73m2 for >3 months is consistent with chronic kidney disease. Refer to KDOQI guidelines for clinical interpretation. In patients with unstable renal function, e.g. those with acute kidney injury, the eGFR may not accurately reflect actual GFR. Performed By: #### C RP, RFP, CBC, FERR #### [facility] [address] [facility] [place] [address] Glucose [Mass/Vol] 80 mg/dL Normal 74-99 [facility] Comment on above: Performed By: #### C RP, RFP, CBC, FERR #### [facility] [address] [facility] [place] [address] Phosphate [Mass/Vol] 2.9 mg/dL Normal 2.5-4.5 [facility] Comment on above: Performed By: #### C RP, RFP, CBC, FERR #### [facility] [address] [facility] [place] [address] Potassium [Moles/Vol] 4.3 mmol/L Normal 3.7-5.1 [facility] Comment on above: Performed By: #### C RP, RFP, CBC, FERR #### [facility] [address] [place] [address] Sodium [Moles/Vol] 139 mmol/L Normal 136-144 [facility] Comment on above: Performed By: #### C RP, RFP, CBC, FERR #### [facility] [address] [facility] [place] [address] Urea nitrogen [Mass/Vol] 13 mg/dL Normal 7-21 [facility] Comment on above: Result Comment: Felipe mmended reference range provided for this age range is published by the instrument lower in supervisor. Adult reference ranges have been verified. Performed By: #### C RP, RFP, CBC, FERR #### [facility] [address] [place] [address] ALLIED HEALTHon 04-15-2021 [facility] HNO ID: [id number] Author: Megan Blanc RDMS Service: Radiology Author Type: Market Development Director Type: Allied Health Filed: 04/15/2021 5:09 PM Note Text: Radiology Service Progress Note PATIENT NAME: Bo Monteiro DATE OF SERVICE: April 15, 2021 TIME: 5:09 PM PATIENT IDENTITY VERIFICATION COMPLETED USING TWO (2) IDENTIFIERS: Name and Date of confirmed by patient verbally and Name and Date of confirmed by identification band. FALL SCREENING: Has the patient had 2 falls in the last year or 1 fall with injury or currently using an Ambulatory Assistive Device (Walker, Cane, Wheelchair, Crutches, etc.)? Inpatient: Screened on floor PATIENT GENDER DATA: Female. status: : No status: N/A PATIENT RELEVANT IMPLANT DATA REVIEWED: Not Applicable RADIOLOGY DEPARTMENT: Ultrasound PERIPHERAL IV DATA: Not applicable SIGNED BY: Megan Blanc RDMS April 15, 2021 5:09 PM Normal [facility] C-Reactive Proteinon 021 C-Reactive Protein 5.1 mg/dL High <0.9 [facility] Comment on above: Performed By: #### C RP #### [facility] [address] [place] [address] CONSULT PROGon 04-15-2021 CONSULT PROG HNO ID: [id number] Author: Monroe Stevens MD Service: Infectious Disease Author Type: Physician Type: Consult Progress Note Filed: 04/15/2021 10:45 AM Note Text: INFECTIOUS DISEASES PROGRESS NOTE Subjective: still with cough and sob, no fevers/chills, feels marginally Worse . Interval History AND Relevant Results: no fevers Temp (24hrs), Av.8 ?C (98.3 ?F), Min:36.7 ?C (98.1 ?F), Max:37.3 ?C (99.1 ?F) WBC Date Value Ref Range Status 04/11/2021 11.65 (H) 3.70 - 11.00 k/uL Final 04/11/2021 13.37 (H) 3.70 - 11.00 k/uL Final 06/10/2020 7.06 3.70 - 11.00 k/uL Final Creatinine Date Value Ref Range Status 04/14/2021 1.08 (H) 0.58 - 0.96 mg/dL Final 04/13/2021 1.04 (H) 0.58 - 0.96 mg/dL Final CRP down to 5.1 VS: BP 117/59 Pulse 74 Temp 37.3 ?C (99.1 ?F) (Oral) Resp 20 Ht 154.9 cm (5' 1) Wt 90.2 kg (198 lb 13.7 oz) SpO2 90% BMI 37.57 kg/m? Answering questions appropriately, No acute distress, looks tired Anicteric sclera Normal S1+S2, No murmurs/gallops/rubs No respiratory distress, clear to auscultation bilaterally on limited anterior lung exam ASSESSMENT AND PLAN unvaccinated 65 YO lady with severe sepsis (POA) due to?COVID infection with?viral PNA Transferred out of ICU on 04/12 -S/P negative CTA for PE Needing 4 L VM this am-At risk for deterioration given her??age AND?breast CA May have a superimposed bacterial PNA,procal around 7-staph nasal swab with MSSA Will maintain zosyn - day 5 of 7 for now Continue dexa? thru 04/20 AND??day # 5 of 5 of remdesivir (monitor CrCl AND LFTs closely) Will trend inflammatory markers AND continue supportive measures Normal [facility] D dimeron 04-15-2021 D dimer 1540 ng/mL FEU High <500 [facility] Comment on above: Result Comment: 500 ng/mL FEU is the D Dimer cutoff to exclude DVT (deep vein thrombosis) and PE (pulmonary embolism) in patients with a low pre test probability. Supplemental Comment: In patients over 50 years with a low pre test probability for DVT and/or PE, an age adjusted D dimer cutoff can be calculated as [age x 10] ng/mL FEU. For example, a patient of 88 years would have an age adjusted D dimer cutoff of 880 ng/mL FEU. For patients with a suspected DVT, a D dimer level below 500 ng/mL FEU has a negative predictive value of >98.9%, a sensitivity of >96.9% and a specificity of >35.7%. For patients with a suspected PE, a D dimer level below 500 ng/mL FEU has a negative predictive value of >98.5%, and a sensitivity of >96.5% and a specificity of >38.8%. Reference: Raine M, et al. RASHAUN 2014 311:1117 and Van Betty N, et al. Marcia Int Med 2016 165:253. Performed By: #### C RP, RFP, CBC, FERR #### [facility] [address] [place] [address] NURSING PROGon 04-15-2021 NURSING PROG HNO ID: [id number] Author: Claudia Salas, BERNABE Service: ? Author Type: Registered Nurse Type: Nursing Progress Note Filed: 04/15/2021 10:17 AM Note Text: Nursing Progress Note Patient Name: Bo Monteiro Patient [facility] [id number]/-ICUA-16 Daily Note: [place] increasing shortness of breath. Pt on 50 % venti mask, family at bedside. This note was completed by: Claudia Salas [facility] NURSING PROG HNO ID: [id number] Author: Akshat Julien RN Service: Nursing Author Type: Registered Nurse Type: Nursing Progress Note Filed: 04/15/2021 9:06 AM Note Text: AANDOx3 nausea and pain in chest from coughing, IV zofran given. Patient is SOB on exertion. 4L 92% sitting using accessory muscles. Another RN put patient on bed pain, desat in low 80's very SOB. Once patient off bed be 9L 89-90%, physician paged. Per physician venti mask at 50% and transfer patient to ICU. [facility] NURSING PROG HNO ID: [id number] Author: Jessie Martinez RN Service: Nursing Author Type: Registered Nurse Type: Nursing Progress Note Filed: 04/15/2021 7:58 AM Note Text: Nursing Progress Note Patient Name: Bo Monteiro Patient Location: [id number] 2 Daily Note: Patient vitals sustained on 3 liters of oxygen; continues with continent diarrhea. Slept well for majority of the night. No s/s ?Of respiratory distress. Medicated with zofran for nausea per request with effective results. ? This note was completed by: Jessie Martinez [facility] Procalcitoninon 04-15-2021 Procalcitonin 0.42 ng/mL High <0.09 [facility] Comment on above: Result Comment: For a guided interpretation of test results, please visit the Change in Procalcitonin Calculator, [email or web address]. Performed By: #### C RP, RFP, CBC, FERR #### [facility] [address] [place] [address] US DVT LOWER BILon US DVT LOWER TRACEE * * *Final Report* * * DATE OF EXAM: Apr 15 2021 5:08PM MMU 1005 - US DVT LOWER TRACEE / PROCEDURE REASON: Respiratory failure * * * * Physician Interpretation * * * * EXAMINATION: RIGHT AND LEFT LOWER EXTREMITY DEEP VENOUS ULTRASOUND WITH DOPPLER IMAGING CLINICAL HISTORY: Shortness of breath. TECHNIQUE: Grayscale with compression maneuvers, color Doppler and spectral Doppler imaging of the right and left proximal deep veins was performed. Grayscale with compression maneuvers of the right and left peroneal and posterior tibial veins was performed. The right and left great and small saphenous veins were evaluated at their insertion to the deep system. Images were obtained and stored in a permanent archive. MQ: [id number] COMPARISON: None RESULT: RIGHT LOWER EXTREMITY PROXIMAL DEEP VEINS Distal External Iliac, Common Femoral and Proximal Profunda Veins: Compression: Normal Doppler: Normal, spontaneous respirophasic flow. Normal response to augmentation. Femoral vein: Compression: Normal Doppler: Normal, spontaneous respirophasic flow. Normal response to augmentation. Popliteal vein: Compression: Normal Doppler: Normal, spontaneous respirophasic flow. Normal response to augmentation. CALF DEEP VEINS Peroneal veins: Normal compression. Posterior tibial veins: Normal compression. Gastrocnemius and Soleal veins: Not imaged. SUPERFICIAL VEINS Great saphenous: Patent and compressible at insertion into common femoral vein; not otherwise assessed. LEFT LOWER EXTREMITY PROXIMAL DEEP VEINS Distal External Iliac, Common Femoral and Proximal Profunda Veins: Compression: Normal Doppler: Normal, spontaneous respirophasic flow. Normal response to augmentation. Femoral vein: Compression: Normal Doppler: Normal, spontaneous respirophasic flow. Normal response to augmentation. Popliteal vein: Compression: Normal Doppler: Normal, spontaneous respirophasic flow. Normal response to augmentation. CALF DEEP VEINS Peroneal veins: Normal compression. Posterior tibial veins: Normal compression. Gastrocnemius and Soleal veins: Not imaged. SUPERFICIAL VEINS Great saphenous: Patent and compressible at insertion into common femoral vein; not otherwise assessed. IMPRESSION: Negative study for proximal DVT in the left and right lower extremities. Negative study for calf DVT in the left and right lower extremities. Negative study for superficial thrombophlebitis in the imaged segments of the left and right lower extremities. Glass Melt Operator: RODO Transcribe Date/Time: Apr 15 2021 9:15P Dictated by : MARISOL WOMACK MD This examination was interpreted and the report reviewed and electronically signed by: MARISOL WOMACK MD on Apr 15 2021 9:16PM EST [id number]ST 1V FRONTAL PORTon 0 04-15-2021 XR CHEST 1V FRONTAL PORT * * *Final Report* * * DATE OF EXAM: Apr 15 2021 10:09AM MMX 5376 - XR CHEST 1V FRONTAL PORT / PROCEDURE REASON: Acute respiratory illness * * * * Physician Interpretation * * * * EXAMINATION: CHEST RADIOGRAPH (PORTABLE SINGLE VIEW AP) Exam Date/Time: 04/15/2021 10:09 AM Clinical History: Acute respiratory illness Comparison: CT scan dated 04/11/2021, chest x-ray dated 06/08/2020 RESULT: LINES, TUBES, AND DEVICES: Left-sided port in satisfactory position. CARDIOMEDIASTINAL SILHOUETTE: The cardiac and mediastinal silhouettes appear unremarkable. LUNGS AND PLEURA: Bilateral multifocal infiltrates which are most pronounced at the lung bases and peripheral aspects of both lungs. No pleural effusion. No pulmonary vascular congestion. No pneumothorax identified. OTHER: N/A IMPRESSION: Bilateral multifocal infiltrates. Glass Melt Operator: [facility] HOSPITALMark Transcribe Date/Time: Apr 15 2021 10:38A Dictated by : PHYLLIS VASQUEZ MD This examination was interpreted and the report reviewed and electronically signed by: PHYLLIS VASQUEZ MD on Apr 15 2021 10:39AM EST [id number] CONSULT PROGon 04-14-2021 CONSULT PROG HNO ID: [id number] Author: Rosendo Landin V, MD Service: Infectious Disease Author Type: Physician Type: Consult Progress Note Filed: 04/14/2021 11:15 AM Note Text: INFECTIOUS DISEASES PROGRESS NOTE Subjective: still with cough and sob, no fevers/chills, feels marginally better Interval History AND Relevant Results: no fevers Temp (24hrs), Av.9 ?C (98.4 ?F), Min:36.5 ?C (97.7 ?F), Max:37 ?C (98.6 ?F) WBC Date Value Ref Range Status 04/11/2021 11.65 (H) 3.70 - 11.00 k/uL Final 04/11/2021 13.37 (H) 3.70 - 11.00 k/uL Final 06/10/2020 7.06 3.70 - 11.00 k/uL Final Creatinine Date Value Ref Range Status 04/14/2021 1.08 (H) 0.58 - 0.96 mg/dL Final 04/13/2021 1.04 (H) 0.58 - 0.96 mg/dL Final VS: BP 119/52 Pulse 63 Temp 37 ?C (98.6 ?F) (Oral) Resp 18 Ht 154.9 cm (5' 1) Wt 90.6 kg (199 lb 11.8 oz) SpO2 92% BMI 37.74 kg/m? Answering questions appropriately, No acute distress, looks tired Anicteric sclera Normal S1+S2, No murmurs/gallops/rubs No respiratory distress, clear to auscultation bilaterally on limited anterior lung exam ASSESSMENT AND PLAN unvaccinated 65 YO lady with severe sepsis (POA) due to?COVID infection with?viral PNA Transferred out of ICU on 04/12 -S/P negative CTA for PE Needing 3 L NC this am-At risk for deterioration given her??age AND?breast CA May have a superimposed bacterial PNA,procal around 7-staph nasal swab with MSSA Will maintain zosyn - day 4 of 7 for now Continue dexa? thru 04/20 AND??day # 4 of 5 of remdesivir (monitor CrCl AND LFTs closely) Will trend inflammatory markers AND continue supportive measures Dr. Stevens research and evaluation analyst this weekend. This patient will be seen PRN your call. Please call answering service at [phone] should you need to reach the physician research and evaluation analyst. Rosendo Landin MD [employer] Office #: Fax #: Date AND Time Signed: April 14, 2021 11:15 AM Normal [facility] Comp Metabolic Panelon 04-14 Albumin [Mass/Vol] 3.2 g/dL Low 4.0-4.9 [facility] Comment on above: Performed By: #### C RP, RFP, CBC, FERR #### [address] [place] [address] ALP [Catalytic activity/Vol] 62 U/L Normal 34-123 [facility] Comment on above: Performed By: #### C RP, RFP, CBC, FERR #### [address] [place] [address] ALT [Catalytic activity/Vol] 25 U/L Normal 0-33 [facility] Comment on above: Performed By: #### C RP, RFP, CBC, FERR #### [address] [place] [address] Anion gap [Moles/Vol] 8 mmol/L Normal 0-15 [facility] Comment on above: Performed By: #### C RP, RFP, CBC, FERR #### [address] [place] [address] AST [Catalytic activity/Vol] 35 U/L High 0-32 [facility] Comment on above: Performed By: #### C RP, RFP, CBC, FERR #### [address] [place] [address] Bilirubin [Mass/Vol] 0.3 mg/dL Normal 0.2-1.3 [facility] Comment on above: Performed By: #### C RP, RFP, CBC, FERR #### [address] [place] [address] Calcium [Mass/Vol] 8.9 mg/dL Normal 8.5-10.2 [facility] Comment on above: Result Comment: Felipe mmended reference range provided for this age range is published by the instrument lower in supervisor. Adult reference ranges have been verified. Performed By: #### C RP, RFP, CBC, FERR #### [address] [place] [address] Chloride [Moles/Vol] 104 mmol/L Normal 97-105 [facility] Comment on above: Performed By: #### C RP, RFP, CBC, FERR #### [facility] [address] [place] [address] CO2 [Moles/Vol] 28 mmol/L Normal 22-30 [facility] Comment on above: Performed By: #### C RP, RFP, CBC, FERR #### [address] [place] [address] Creatinine [Mass/Vol] 1.08 mg/dL High 0.58-0.96 [facility] Comment on above: Performed By: #### C RP, RFP, CBC, FERR #### [address] [place] [address] eGFR- Amer. >60 Normal >60 [facility] Comment on above: Performed By: #### C RP, RFP, CBC, FERR #### [address] [place] [address] eGFR-All Other Races 51 . Low >60 [facility] Comment on above: Result Comment: eGFR (Estimated GFR) Units of measure: mL/min/1.73 meters squared eGFR is derived from the reexpressed MDRD Study equation using the following parameters: serum creatinine, age, gender and race. The creatinine assay has been calibrated to be traceable to IDMS. An eGFR <60 mL/min/1.73m2 for >3 months is consistent with chronic kidney disease. Refer to KDOQI guidelines for clinical interpretation. In patients with unstable renal function, e.g. those with acute kidney injury, the eGFR may not accurately reflect actual GFR. Performed By: #### C RP, RFP, CBC, FERR #### [place] [id number] [place] [address] Glucose [Mass/Vol] 78 mg/dL Normal 74-99 [facility] Comment on above: Performed By: #### C RP, RFP, CBC, FERR #### [address] [place] [address] Potassium [Moles/Vol] 4.0 mmol/L Normal 3.7-5.1 [facility] Comment on above: Performed By: #### C RP, RFP, CBC, FERR #### [place] [id number] [facility] [place] [address] Protein [Mass/Vol] 6.1 g/dL Low 6.6-8.7 [facility] Comment on above: Performed By: #### C RP, RFP, CBC, FERR #### [address] [place] [address] Sodium [Moles/Vol] 140 mmol/L Normal 136-144 [facility] Comment on above: Performed By: #### C RP, RFP, CBC, FERR #### [address] [place] [address] Urea nitrogen [Mass/Vol] 24 mg/dL High 7-21 [facility] Comment on above: Result Comment: Felipe mmended reference range provided for this age range is published by the instrument lower in supervisor. Adult reference ranges have been verified. Performed By: #### C RP, RFP, CBC, FERR #### [address] [place] [address] Expedited [id number] 04-14-20 21 SARS-CoV-2 (COVID-19) RNA KRISTOFER+probe Ql (Unsp spec) UPPER RESPIRATORY TRACT SWAB Normal [facility] Comment on above: Result Comment: Call ed to and read back by: Mariusz Chandler RN [facility] 4 [facility] 04/14/21 1859 T Conn Performed By: #### E XCOVD ####[address] [place]., [place] [phone] SARS-CoV-2 (COVID-19) RNA KRISTOFER+probe Ql (Unsp spec) Positive for COVID19 (SARS CoV2) by RT-PCR or equivalent method. Critically abnormal Negative for COVID19 (SARS CoV2) by RT-PCR or equivalent method. [facility] Comment on above: Result Comment: If y our test results are positive, you have tested positive for the presence of the virus associated with COVID-19. This is a stressful time and if you are a [facility] patient, we will support you by closely monitoring your symptoms and providing supportive resources that can ease your recovery. Our team will call you regularly and have you enter your symptoms in MyChart, so that we can provide the best care possible. This test has been authorized by FDA under an Emergency Use Authorization (EUA). Performed By: #### E XCOVD ####[facility] [place], [place] [phone] NURSING PROGon 04-14-2021 NURSING PROG HNO ID: [id number] Author: Erika Chandler RN Service: ? Author Type: Registered Nurse Type: Nursing Progress Note Filed: 04/14/2021 3:34 PM Note Text: Nursing Progress Note Patient Name: Bo Monteiro Patient Location: [id number] 2 Daily Note: 0800: AOx3. Non prod cough, 4L NC. Lungs diminished. External cath wnl. SB-SR on telemetry. Call light within reach. 1530: Covid swab sent to lab. This note was completed by: Erika Chandler [facility] NURSING PROG HNO ID: [id number] Author: Jessie Martinez RN Service: Nursing Author Type: Registered Nurse Type: Nursing Progress Note Filed: 04/14/2021 6:58 AM Note Text: Nursing Progress Note Patient Name: Bo Monteiro Patient Location: [id number] 2 Daily Note: Patient vitals sustained on 3 liters of oxygen; continues with continent diarrhea. Slept well for majority of the night. No s/s Of respiratory distress. Medicated with zofran for nausea per request. ? This note was completed by: Jessie Martinez [facility] THERAPY NTon 04-14-2021 THERAPY NT HNO ID: [id number] Author: Destinee Hercules PTA Service: Physical Therapy Author Type: Cable Technician Type: Therapy (PT/OT/Speech/Resp) Filed: 04/14/2021 2:59 PM Note Text: Attestation signed by Radha Buck PT at 04/14/2021 3:40 PM I reviewed and agree with the documentation corresponding to this therapy visit. SIGNATURE: Radha Buck PT DATE: April 14, 2021 TIME: 3:40 PM PHYSICAL THERAPY MISSED VISIT SERVICE DATE: 04/14/2021 SERVICE TIME: 1430 to 1440 ROOM: [place] [address] Attempted Treatment. Patient not seen due to Declined. Fatigued after 2 out of town visitors and now requesting bed be d/t diarrhea from iv antibiotic . Pt placed on bed be with call button in reach. Nursing aware . SIGNATURE: Destinee Hercules PTA PATIENT NAME: Bo Monteiro DATE: April 14, 2021 TIME: 2:56 PM [facility] C-Reactive Proteinon 021 C-Reactive Protein 9.9 mg/dL High <0.9 [facility] Comment on above: Performed By: #### C RP ####[facility] [facility] [place] [phone] C-Reactive Protein 14.0 mg/dL High <0.9 [facility] Comment on above: Performed By: #### C MP, CRP #### [facility] [address] [place] [address] CONSULT PROGon 04-13-2021 CONSULT PROG HNO ID: [id number] Author: Afsaneh Heard MD Service: Infectious Disease Author Type: Physician Type: Consult Progress Note Filed: 04/13/2021 11:09 AM Note Text: CONSULT PROGRESS NOTE Seen for COVID CONSULTING SERVICE: infectious disease ASSESSMENT AND PLAN unvaccinated 65 YO lady with severe sepsis (POA) due to COVID infection with?viral PNA Transferred out of ICU on 04/12 -S/P negative CTA for PE Needing 3 L NC this am-At risk for deterioration given her age AND breast CA May have a superimposed bacterial PNA,procal around 7-staph nasal swab with MSSA Will maintain zosyn for now Continue ??dexa? thru 04/20 AND??day # 3 of 5 of remdesivir (monitor CrCl AND LFTs closely) Will trend inflammatory markers AND continue supportive measures I will be off 04/14 thru 04/16-Melly Stevens/Mushtaq will be covering SUBJECTIVE INTERVAL HPI: Denies any fever or chills, states feels less SOB this am OBJECTIVE PHYSICAL EXAM: Afebrile,on 3 L NC seen from outside the room to help preserve PPE AND decrease risk of exposure in this pandemic Answering questions appropriately, No acute distress Anicteric sclera No respiratory distress abd-protuberant DATA: CRP much improved AFSANEH HEARD M.D [employer] [facility] [phone] [facility] Comp Metabolic Panelon 04-13 Albumin [Mass/Vol] 3.3 g/dL Low 4.0-4.9 [facility] Comment on above: Performed By: #### C MP, CRP #### [facility] [address] [facility] [place] [address] ALP [Catalytic activity/Vol] 76 U/L Normal 34-123 [facility] Comment on above: Performed By: #### C MP, CRP #### [facility] [address] [facility] [place] [address] ALT [Catalytic activity/Vol] 28 U/L Normal 0-33 [facility] Comment on above: Performed By: #### C MP, CRP #### [facility] [address] [facility] [place] [address] Anion gap [Moles/Vol] 12 mmol/L Normal 0-15 [facility] Comment on above: Performed By: #### C MP, CRP #### [facility] [address] [facility] [place] [address] AST [Catalytic activity/Vol] 45 U/L High 0-32 [facility] Comment on above: Performed By: #### C MP, CRP #### [facility] [address] [facility] [place] [address] Bilirubin [Mass/Vol] 0.3 mg/dL Normal 0.2-1.3 [facility] Comment on above: Performed By: #### C MP, CRP #### [facility] [address] [facility] [place] [address] Calcium [Mass/Vol] 9.1 mg/dL Normal 8.5-10.2 [facility] Comment on above: Result Comment: Felipe mmended reference range provided for this age range is published by the instrument lower in supervisor. Adult reference ranges have been verified. Performed By: #### C MP, CRP #### [facility] [address] [facility] [place] [address] Chloride [Moles/Vol] 102 mmol/L Normal 97-105 [facility] Comment on above: Performed By: #### C MP, CRP #### [facility] [address] [facility] [place] [address] CO2 [Moles/Vol] 26 mmol/L Normal 22-30 [facility] Comment on above: Performed By: #### C MP, CRP #### [facility] [address] [facility] [place] [address] Creatinine [Mass/Vol] 1.04 mg/dL High 0.58-0.96 [facility] Comment on above: Performed By: #### C MP, CRP #### [facility] [address] [facility] [place] [address] eGFR- Amer. >60 Normal >60 [facility] Comment on above: Performed By: #### C MP, CRP #### [facility] [id number] [place] [address] [place] [address] eGFR-All Other Races 53 . Low >60 [facility] Comment on above: Result Comment: eGFR (Estimated GFR) Units of measure: mL/min/1.73 meters squared eGFR is derived from the reexpressed MDRD Study equation using the following parameters: serum creatinine, age, gender and race. The creatinine assay has been calibrated to be traceable to IDMS. An eGFR <60 mL/min/1.73m2 for >3 months is consistent with chronic kidney disease. Refer to KDOQI guidelines for clinical interpretation. In patients with unstable renal function, e.g. those with acute kidney injury, the eGFR may not accurately reflect actual GFR. Performed By: #### C MP, CRP #### [facility] [address] [facility] [place] [address] Glucose [Mass/Vol] 89 mg/dL Normal 74-99 [facility] Comment on above: Performed By: #### C MP, CRP #### [facility] [address] [facility] [place] [address] Potassium [Moles/Vol] 4.2 mmol/L Normal 3.7-5.1 [facility] Comment on above: Performed By: #### C MP, CRP #### [facility] [address] [facility] [place] [address] Protein [Mass/Vol] 6.6 g/dL Normal 6.6-8.7 [facility] Comment on above: Performed By: #### C MP, CRP #### [facility] [address] [facility] [place] [address] Sodium [Moles/Vol] 140 mmol/L Normal 136-144 [facility] Comment on above: Performed By: #### C MP, CRP #### [facility] [address] [facility] [place] [address] Urea nitrogen [Mass/Vol] 27 mg/dL High 7-21 [facility] Comment on above: Result Comment: Felipe mmended reference range provided for this age range is published by the instrument lower in supervisor. Adult reference ranges have been verified. Performed By: #### C MP, CRP #### [facility] [address] [facility] [place] [address] NURSING PROGon 04-13-2021 NURSING PROG HNO ID: [id number] Author: Erich Castro RN Service: Nursing Author Type: Registered Nurse Type: Nursing Progress Note Filed: 04/13/2021 4:29 PM Note Text: Nursing Progress Note Patient Name: Bo Monteiro Patient Location: [id number] 2 Daily Note:0730 Report obtained at this time Assessment completed, pt has no c/o at this time This note was completed by: Erich Castro [facility] NURSING PROG HNO ID: [id number] Author: Jessie Martinez RN Service: Nursing Author Type: Registered Nurse Type: Nursing Progress Note Filed: 04/13/2021 8:25 AM Note Text: Nursing Progress Note Patient Name: Bo Monteiro Patient Location: [id number] 2 Daily Note: Patient vitals sustained on 3 liters of oxygen; continues with continent diarrhea. Slept well for majority of the night. No s/s Of respiratory distress. This note was completed by: Jessie Martinez Normal [facility] C-Reactive Proteinon 021 C-Reactive Protein 27.1 mg/dL High <0.9 [facility] Comment on above: Performed By: #### C RP, RFP, CBC, FERR #### [facility] [address] [place] [address] CONSULT PROGon 04-12-2021 CONSULT PROG HNO ID: [id number] Author: Afsaneh Heard MD Service: Infectious Disease Author Type: Physician Type: Consult Progress Note Filed: 04/12/2021 8:31 AM Note Text: CONSULT PROGRESS NOTE Seen for COVID CONSULTING SERVICE: infectious disease ASSESSMENT AND PLAN unvaccinated 65 YO lady with severe sepsis (POA) due to COVID infection with?viral PNA Transferred to ICU with concerns about worsening respiratory failure-S/P negative CTA for PE Needing less Oxygen this am,a good sign,nwill hold off toci for now At risk for deterioration given her age AND breast CA May have a superimposed bacterial PNA-staph nasal swab with MSSA,stopped vanco Will maintain zosyn for now Continue ??dexa? thru 04/20 AND??day # 2 of 5 of remdesivir (monitor CrCl AND LFTs closely) Will trend inflammatory markers AND continue supportive measures SUBJECTIVE INTERVAL HPI: Denies any fever or chills, states feels dizzy this am AND does not feel any better Discussed with daughter @ bedside OBJECTIVE PHYSICAL EXAM: Afebrile,on 2 L NC seen from outside the room to help preserve PPE AND decrease risk of exposure in this pandemic Answering questions appropriately, No acute distress Anicteric sclera No respiratory distress abd-protuberant DATA: WBC 11 K AFSANEH HEARD M.D [facility] [phone] Normal [facility] Comp Metabolic Panelon 04-12 Albumin [Mass/Vol] 3.4 g/dL Low 4.0-4.9 [facility] Comment on above: Performed By: #### C RP, RFP, CBC, FERR #### [facility] [address] [facility] [place] [address] ALP [Catalytic activity/Vol] 69 U/L Normal 34-123 [facility] Comment on above: Performed By: #### C RP, RFP, CBC, FERR #### [facility] [address] [facility] [place] [address] ALT [Catalytic activity/Vol] 25 U/L Normal 0-33 [facility] Comment on above: Performed By: #### C RP, RFP, CBC, FERR #### [facility] [address] [facility] [place] [address] Anion gap [Moles/Vol] 12 mmol/L Normal 0-15 [facility] Comment on above: Performed By: #### C RP, RFP, CBC, FERR #### [facility] [address] [facility] [place] [address] AST [Catalytic activity/Vol] 41 U/L High 0-32 [facility] Comment on above: Performed By: #### C RP, RFP, CBC, FERR #### [facility] [address] [facility] [place] [address] Bilirubin [Mass/Vol] 0.2 mg/dL Normal 0.2-1.3 [facility] Comment on above: Performed By: #### C RP, RFP, CBC, FERR #### [facility] [address] [facility] [place] [address] Calcium [Mass/Vol] 8.6 mg/dL Normal 8.5-10.2 [facility] Comment on above: Result Comment: Felipe mmended reference range provided for this age range is published by the instrument lower in supervisor. Adult reference ranges have been verified. Performed By: #### C RP, RFP, CBC, FERR #### [facility] [address] [facility] [place] [address] Chloride [Moles/Vol] 100 mmol/L Normal 97-105 [facility] Comment on above: Performed By: #### C RP, RFP, CBC, FERR #### [address] [place] [address] CO2 [Moles/Vol] 25 mmol/L Normal 22-30 [facility] Comment on above: Performed By: #### C RP, RFP, CBC, FERR #### [address] [place] [address] Creatinine [Mass/Vol] 1.03 mg/dL High 0.58-0.96 [facility] Comment on above: Performed By: #### C RP, RFP, CBC, FERR #### [address] [place] [address] eGFR- Amer. >60 Normal >60 [facility] Comment on above: Performed By: #### C RP, RFP, CBC, FERR #### [address] [place] [address] eGFR-All Other Races 54 . Low >60 [facility] Comment on above: Result Comment: eGFR (Estimated GFR) Units of measure: mL/min/1.73 meters squared eGFR is derived from the reexpressed MDRD Study equation using the following parameters: serum creatinine, age, gender and race. The creatinine assay has been calibrated to be traceable to IDMS. An eGFR <60 mL/min/1.73m2 for >3 months is consistent with chronic kidney disease. Refer to KDOQI guidelines for clinical interpretation. In patients with unstable renal function, e.g. those with acute kidney injury, the eGFR may not accurately reflect actual GFR. Performed By: #### C RP, RFP, CBC, FERR #### [facility] [id number] [place] [address] [place] [address] Glucose [Mass/Vol] 142 mg/dL High 74-99 [facility] Comment on above: Performed By: #### C RP, RFP, CBC, FERR #### [address] [place] [address] Potassium [Moles/Vol] 4.2 mmol/L Normal 3.7-5.1 [facility] Comment on above: Performed By: #### C RP, RFP, CBC, FERR #### [address] [place] [address] Protein [Mass/Vol] 6.4 g/dL Low 6.6-8.7 [facility] Comment on above: Performed By: #### C RP, RFP, CBC, FERR #### [address] [place] [address] Sodium [Moles/Vol] 137 mmol/L Normal 136-144 [facility] Comment on above: Performed By: #### C RP, RFP, CBC, FERR #### [address] [place] [address] Urea nitrogen [Mass/Vol] 23 mg/dL High 7-21 [facility] Comment on above: Result Comment: Felipe mmended reference range provided for this age range is published by the instrument lower in supervisor. Adult reference ranges have been verified. Performed By: #### C RP, RFP, CBC, FERR #### [address] [place] [address] NURSING PROGon 04-12-2021 NURSING PROG HNO ID: [id number] Author: Ondina Mauricio RN Service: ? Author Type: Registered Nurse Type: Nursing Progress Note Filed: 04/12/2021 11:01 AM Note Text: Nursing Progress Note Patient Name: Bo Monteiro Patient Location: [id number] 2 Transfer Note: Patient transferred into room/unit 455-2 in stable condition. Actions taken: No futher actions taken at this time. Will continue to monitor and check with patient. This note was completed by: Ondina Mauricio [facility] NURSING PROG HNO ID: [id number] Author: Amber Ramirez, BERNABE Service: ? Author Type: Registered Nurse Type: Nursing Progress Note Filed: 04/12/2021 10:20 AM Note Text: Nursing Progress Note Patient Name: Bo Monteiro Patient Location: -[id number] Daily Note: 0715: assumed care of pt 0800: assessment as charted. Resting comfortably in bed. No s/s of distress, will continue to monitor. Daughter at bedside, updates given. 1015: report called to akshat Donnelly This note was completed by: Amber Ramirez [facility] Procalcitoninon 04-12-2021 Procalcitonin 6.99 ng/mL High <0.09 [facility] Comment on above: Result Comment: For a guided interpretation of test results, please visit the Change in Procalcitonin Calculator, [email or web address]. Performed By: #### C RP, RFP, CBC, FERR #### [facility] [address] [place] [address] THERAPY NTon 04-12-2021 THERAPY NT HNO ID: [id number] Author: Geeta Nazario, PT Service: Physical Therapy Author Type: Physical Therapist Type: Therapy (PT/OT/Speech/Resp) Filed: 04/12/2021 11:28 AM Note Text: Physical Therapy Evaluation SERVICE DATE: 04/12/2021 SERVICE TIME: 939 to 1029 ROOM: [place] [address] Recommended Discharge Disposition: Subacute/SNF Recommended Discharge Disposition Comments: Had a significant decline with ability to do ADLs and functional mobility.A high fall risk. Endurance is low and will need skilled therapy to help return close to or to PLOF and level of independence and function. Recommended Discharge Disposition Due to: Patient requires daily, facility-based rehabilitation from at least one discipline due to:;ADL impairment resulting in caregiver dependence;anticipate community discharge/previous community dweller;decline in functional status requiring daily skilled care Anticipated Discharge Needs: Undetermined Recommended Discharge Equipment: No equipment needs anticipated PT 6 Clicks Score: 13 Precautions/Activity Restrictions: Lines/Tubes/Drains;Other: See Comments (Monitor SPO2) Precaution/Activity Restriction Comments: COVID 19+ Isolation Type: Contact AND Droplet Precautions-Plus Eyewear Current Hospital Course: A 65 y/o female pt admitted for SOB.+COVID. Reason for Hospital Admission: COVID 19 Relevant Past Medical History: Breast Cancer- lumpectomy, still doing chemotherapy. Response to Therapy Interventions: Good participation in activities, Low activity tolerance, Requires additional time to complete activities Continue skilled needs due to: Continued monitoring of vital signs during mobility required, Functional mobility/skill impairments Physical Therapy Problem List: Education Deficit;Safety Deficits;Decreased Strength;Functional Mobility Impairment;Balance Impaired Treatment Interventions: Education;Strengthening;Fun ctional Mobility Training;Balance Training Plan for next visit: Bed mobility, Gait training, Exercise instruction/handout, Standing Balance, Standing Tolerance, Sitting balance, Walker Training Home Environment Patient Lives With: Significant Other Assistance Available: 24 Hour Entry To Home: No Stairs Tub/Shower Type: accessible walk in shower with grab bar and shower chair Laundry: first floor laundry Equipment Owned: Cane;Standard Walker Prior Functional Level: Within Functional Limits Prior Functional Level Comments: Ind with ADLs, ambulation and IADLs Patient Report: I have pain on my sides, more when I cough Vital Signs Pre Assessment: Heart Rate, SpO2 Pre Heart Rate: 69 Pre SpO2: 92 Intra Assessment 1: Heart Rate Intra 1, SpO2 Intra 1 Intra Heart Rate 1: 78 Intra SpO2 1: 89 Intra Assessment 2: Heart Rate Intra 2, SpO2 Intra 2 Intra Heart Rate 2: 76 Intra SpO2 2: 91 Post Assessment: Heart Rate Post, SpO2 Post Post Heart Rate: 71 Post SpO2: 90 CURRENT FUNCTIONAL STATUS: Most recent performance Current Functional Mobility Assist Level Additional Information Rolling Minimal Assistance Supine to Sit Minimal Assistance Sit to Supine Minimal Assistance Scooting Minimal Assistance Sit to Stand Moderate Assistance Stand to Sit Moderate Assistance Bed to Chair Toilet/Commode Gait Moderate Assistance Gait Device: Wheeled Walker Gait Distance (feet): 4 Stairs Curb Step Car Transfer Blank julian indicate activity not attempted General Deviations/Observations: Celi decreased;Flexed trunk posture;Step length decreased;UE weight bearing on assistive device excessive Range of Motion: WFL Strength: Strength Limitation Comments Strength Limitation Comments: Grossly 4-/5 Transitions: Need mod assist for the sit<.stand, Mod for ambulation and min assist for supine <>sit Balance: Static Sitting;Dynamic Sitting;Static Standing;Dynamic Standing Static Sitting Balance: Normal Patient able to maintain steady balance without handhold support Dynamic Sitting Balance: Normal Patient accepts maximal challenge and can shift weight easily within full range in all directions Static Standing Balance: Poor Patient requires handhold support and moderate to maximal assistance to maintain position Dynamic Standing Balance: Poor Patient unable to accept challenge or move without loss of balance Activity Tolerance: Sitting Activity;Standing Activity Sitting Activity: EOB sitting for assessment Sitting Activity Tolerance (in minutes): 15 Standing Activity: stood and took a few sidesteps with a RW Standing Activity Tolerance (in minutes): 3 JH-HLM: 5: Standing (1 or more minutes) Learning/Educational Needs: Functional Activities/Mobility;Plan of Care;Rehabilitation Techniques and Procedures;Safety Goals for Plan of Care: Patient /Caregiver Goals: Walk;Care For Self Goals: Patient will demonstrate progress with functional mobility to allow safe discharge to home with available support and/or ph (more content not included)... [facility] THERAPY NT HNO ID: [id number] Author: Alice Nava OT/Elijah Service: Occupational Therapy Author Type: Occupational Therapist Type: Therapy (PT/OT/Speech/Resp) Filed: 04/13/2021 2:12 PM Note Text: Occupational Therapy Evaluation SERVICE DATE: 04/12/2021 SERVICE TIME: 1045 to 1125 ROOM: [id number] Recommended Discharge Disposition: Subacute/SNF Recommended Discharge Disposition Due to: Patient requires daily, facility-based rehabilitation from at least one discipline due to:;decline in functional status requiring daily skilled care Anticipated Discharge Needs: Undetermined OT 6 Clicks Score: 18 Precautions/Activity Restrictions: Lines/Tubes/Drains;Other: See Comments (Monitor SPO2) Precaution/Activity Restriction Comments: COVID 19+ Isolation Type: Contact AND Droplet Precautions-Plus Eyewear Current Hospital Course: A 65 y/o female pt admitted for SOB.+COVID. Reason for Hospital Admission: COVID 19 Relevant Past Medical History: Breast Cancer- lumpectomy, still doing chemotherapy. Response to Therapy Interventions: Good participation in activities Continue skilled needs due to: Coping deficits, Functional impairment, Safety concerns Occupational Therapy Problem List: Education Deficit;Safety Deficits;Impaired Self Care;Decreased Strength;Functional Mobility Impairment;Balance Impaired Treatment Interventions: Education;Self Care / Home Management;Strengthening;Fu nctional Mobility Training;Cognitive Training Plan for next visit: Chair/commode transfer training, Energy conservation, Standing balance, Standing tolerance, Health management of chronic conditions Home Environment Patient Lives With: Significant Other Assistance Available: 24 Hour Entry To Home: No Stairs Tub/Shower Type: accessible walk in shower with grab bar and shower chair Laundry: first floor laundry Equipment Owned: Cane;Standard Walker Prior Functional Level: Within Functional Limits Prior Functional Level Comments: Ind with ADLs, ambulation and IADLs Patient Report: Not feeling well, c/o cough CURRENT FUNCTIONAL STATUS: Most recent performance Current Activities of Daily Living Assist Level Additional Information Feeding Supervision Grooming Set Up Bathing Upper Body Bathing Lower Body Dressing Upper Body Minimal Assistance Dressing Lower Body Moderate Assistance Toileting Functional Mobility Assist Level Additional Information Rolling Supine to Sit Supervision Sit to Supine Supervision Scooting Supervision Sit to Stand Minimal Assistance Stand to Sit Minimal Assistance Bed to Chair Toilet/Commode Shower Functional Mobility Blank julian indicate activity not attempted Balance: Static Sitting;Dynamic Sitting;Static Standing Static Sitting Balance: Good Patient able to maintain balance without handhold support, limited postural sway Dynamic Sitting Balance: Good Patient accepts moderate challenge, able to maintain balance while picking up object off floor Static Standing Balance: Fair Patient able to maintain balance with handhold support, may require occasional minimal assistance Learning/Educational Needs: Discharge Plan;Disease Process;Functional Activities/Mobility;Safety; Self Care Goals for Plan of Care: Patient /Caregiver Goals: Care For Self Goals: Patient will demonstrate progress to optimize self-care activities, cognitive and/or coping to maximize function upon discharge. Rehab Potential: Good Patient will be discontinued from Occupational Therapy when no further skilled needs are identified in this setting. PLAN: OT Frequency: 2 times per week Plan of Care developed with: Patient TREATMENT INTERVENTIONS: Therapy Diagnosis: Decreased activities of daily living (ADL) Interventions Provided: Evaluation;Therapeutic Activity (17299);Self Fci Management (40181) $ Evaluation-Low (66123) Billed Units: 1 unit Therapeutic Activity (01436) Treatment Minutes: 10 $ Therapeutic Activity (73766) Billed Units: 1 unit Self Fci Management (60844) Treatment Minutes: 15 $ Self Fci Management (39497) Billed Units: 1 unit Training AND education provided in: Activity adaption / compensatory strategies, Benefits of in-hospital mobility, Coping skills, Cognitive skills, Expected functional level, Discharge planning, Disease specific education The following therapeutic skills were used: Cues for sequencing/proper technique for activity, Cuing tactile, Cuing verbal, Movement facilitation Total Timed Code Treatment Minutes: 25 Total Treatment Time (minutes): 40 Please see discipline specific clinical documentation flowsheet for complete details for this therapy evaluation/treatment. SIGNATURE: Alice Nava OT/Elijah PATIENT NAME: Bo Monteiro DATE: April 13, 2021 TIME: 2:11 PM [facility] 04-11-2021 [facility] HNO ID: [id number] Author: Leslie Rodriguez Beauty Shop Manager Service: Infection Prevention Author Type: ? Type: Allied Health Filed: 04/11/2021 7:49 AM Note Text: ISOLATION NOTE Admission Date: 04/11/2021 Type of Isolation Recommended: Contact and Droplet Precautions Plus Eyewear (Cranberry Isolation Sign) Indication: COVID-19 ? Maintain Contact/Droplet and Eyewear isolation signage ? Remain in private room or cohort when deemed appropriate ? Don an N95 (or PAPR) prior to entering the patient room ? Avoid entering room during aerosol generating procedure when possible ? Restrict room access to essential personnel only ? Contact Infection Prevention prior to discontinuing precautions when criteria are met ? Limit transport and movement of the patient to medically necessary purposes Date Isolation Initiated: 04/11/2021 Anticipated Duration of Isolation: In consultation with Infection Prevention Type and Date of Positive Test(s): 04/06/2021 SIGNATURE: Leslie Rodriguez Beauty Shop Manager PATIENT NAME: Bo Monteiro DATE: April 11, 2021 TIME: 7:49 AM PAGER/CONTACT #: [phone] Infection Prevention after hours/weekend pager: [phone] Normal [facility] C-Reactive Proteinon 021 C-Reactive Protein 25.0 mg/dL High <0.9 [facility] Comment on above: Performed By: #### C RP, RFP, CBC, FERR #### [address] [place] [address] CBCon 04-11-2021 Absolute nRBC <0.01 Normal <0.01 [facility] Comment on above: Performed By: #### C RP, RFP, CBC, FERR #### [address] [place] [address] Erythrocyte distribution width (RBC) [Ratio] 13.2 % Normal 11.5-15.0 [facility] Comment on above: Performed By: #### C RP, RFP, CBC, FERR #### [address] [place] [address] Hematocrit (Bld) [Volume fraction] 35.6 % Low 36.0-46.0 [facility] Comment on above: Performed By: #### C RP, RFP, CBC, FERR #### [address] [place] [address] Hemoglobin (Bld) [Mass/Vol] 11.7 g/dL Normal 11.5-15.5 [facility] Comment on above: Performed By: #### C RP, RFP, CBC, FERR #### [address] [place] [address] MCH 30.2 pG Normal 26.0-34.0 [facility] Comment on above: Performed By: #### C RP, RFP, CBC, FERR #### [address] [place] [address] MCHC (RBC) [Mass/Vol] 32.9 g/dL Normal 30.5-36.0 [facility] Comment on above: Performed By: #### C RP, RFP, CBC, FERR #### [address] [place] [address] MCV (RBC) [Entitic vol] 91.8 fL Normal 80.0-100.0 [facility] Comment on above: Performed By: #### C RP, RFP, CBC, FERR #### [address] [place] [address] Platelet mean volume (Bld) [Entitic vol] 9.8 fL Normal 9.0-12.7 [facility] Comment on above: Performed By: #### C RP, RFP, CBC, FERR #### [address] [place] [address] Platelets (Bld) [#/Vol] 178 10*3/uL Normal 150-400 [facility] Comment on above: Performed By: #### C RP, RFP, CBC, FERR #### [address] [place] [address] RBC (Bld) [#/Vol] 3.88 10*6/uL Low 3.90-5.20 [facility] Comment on above: Performed By: #### C RP, RFP, CBC, FERR #### [address] [place] [address] WBC (Bld) [#/Vol] 11.65 10*3/uL High 3.70-11.00 [facility] Comment on above: Performed By: #### C RP, RFP, CBC, FERR #### [address] [place] [address] CONSULTon 04-11-2021 CONSULT HNO ID: [id number] Author: Cresencio Wylie RPh Service: Pharmacy Author Type: Pharmacist Type: Consults Filed: 04/11/2021 8:20 PM Note Text: PHARMACY VANCOMYCIN DOSING NOTE Patient Name: Bo Monteiro Admission Date: 04/11/2021 Date of Consult: 04/11/2021 Time of Consult: 8:18 PM Indication: Pneumonia Goal Range: 10-20 mcg/mL RECOMMENDATIONS/PLAN: Pharmacy consulted for vancomycin dosing for Bo Monteiro, a 65 year old, female who is being treated with vancomycin for pneumonia 1. Patient is currently ordered Vancomycin 1.5 g IV q12h. Today is day one of therapy. 2. No vancomycin level has been drawn for this dosing regimen. 3. The present dose of vancomycin is the recommended dosage for this patient at this time. Continue therapy as prescribed. 4. The next vancomycin level will be ordered for 5th day unless clinically indicated sooner. (Pharmacy will order) We will follow patient renal function, vancomycin levels and doses with you during the course of therapy. Additional recommendations will appear in follow up notes. If you have any questions, please contact pharmacy at [phone]. Age: [age] year old Allergies: ALLERGIES Allergen Reactions - Oxycodone-Acetamino* Rash - Tape [Adhesive Tape* Rash Last 3 Encounter Wt Readings: Date: Wt: 04/11/2021 90.6 kg (199 lb 11.8 oz) 04/10/2021 83.9 kg (185 lb) 06/10/2020 81.2 kg (179 lb) Last 1 Encounter Ht Readings: Date: Ht: 04/11/2021 154.9 cm (5' 1) CrCl: 51 mL/min Temp (24hrs), Av.2 ?C (99 ?F), Min:37.1 ?C (98.8 ?F), Max:37.3 ?C (99.1 ?F) - Current Temp: 37.1 ?C (98.8 ?F) Labs BUN (mg/dL) Date Value 04/11/2021 18 04/11/2021 19 06/10/2020 12 03/21/2018 15 Creatinine (mg/dL) Date Value 04/11/2021 1.10 (H) 04/11/2021 1.19 (H) 06/10/2020 0.84 03/21/2018 0.86 WBC (k/uL) Date Value 04/11/2021 11.65 (H) 04/11/2021 13.37 (H) 06/10/2020 7.06 03/21/2018 6.68 Vancomycin Levels: No results found for: GOMEZMAYLIN Cresencio Wylie [facility] Normal [facility] CONSULT HNO ID: [id number] Author: Afsaneh Heard MD Service: Infectious Disease Author Type: Physician Type: Consults Filed: 04/12/2021 7:44 AM Note Text: [facility] Consults ORIGINATOR: Carl Heard MD BO MONTEIRO ACCTNUM: [id number] SERVICE: ICU LOCATION: [place] [address] ATTENDING PHYSICIAN: Rolo Oates MD DATE OF SERVICE: 04/11/2021 TIME OF SERVICE: 10:05 AM REASON FOR REFERRAL: Severe COVID infection. HISTORY: This 65-year-old female with past medical history significant for breast cancer, who is currently on Aromasin, [facility] Center with concerns about worsening respiratory status. She apparently tested positive for COVID as did her , who is being treated for severe COVID. He is in respiratory failure at a local hospital. She was noted as having worsening hypoxia, was transferred to the ICU with concerns about impending respiratory failure. I am asked to see her regarding COVID-19 infection. PAST MEDICAL HISTORY: Significant for invasive ductal carcinoma of right breast, history of hypertension. PAST SURGICAL HISTORY: She has had a section, breast biopsy, and lumpectomy. MEDICATIONS: Medication-ward, currently she is on remdesivir and dexamethasone. SOCIAL HISTORY: She is an ex-smoker. FAMILY HISTORY: Her has severe COVID, in the ICU, intubated, in a local hospital in [place]. REVIEW OF SYSTEMS: As in History of Presenting Illness. Otherwise, all 14-system review is negative. PHYSICAL EXAMINATION: Vital Signs: Temperature of 99.1, pulse is 97, blood pressure 140/69. She went from 2 L to 6 L requirement of nasal cannula since this morning. HEENT: Atraumatic, normocephalic. There is no scleral icterus. Neck: There is no neck stiffness. Lungs: With decreased breath sounds bilaterally. Heart: Regular rate and rhythm. Abdomen: Obese, soft, nontender. She does have her chest wall MediPort. Extremities: There is no evidence for cellulitis in all 4 extremities. Urogenital: Shows no Meier catheter. Skin: There were no rashes. LABORATORY DATA: WBC count is 11,000, BUN 18, creatinine 1.1. IMPRESSION/RECOMMENDATION: The patient is a 65-year-old female with severe sepsis due to COVID-19 viral pneumonia with impending respiratory failure, at risk of deterioration given her age and history of breast cancer. I agree with transfer to the ICU. I will have a low threshold of offering her tocilizumab given her CRP of 25. This was discussed with the ICU attending and Infectious Disease pharmacy. If she winds up needing high-flow oxygen, we will offer her tocilizumab. Meanwhile, we will maintain remdesivir and dexamethasone. We will trend her inflammatory markers and continue to monitor her oxygenation status closely in the ICU. She is critically ill. She is to remain in ICU under close observation. This was discussed with the ICU attending. Thank you very much for the referral. Carl Heard MD HDJ:MedQ /[id number] [facility] CONSULT HNO ID: [id number] Author: Afsaneh Heard MD Service: Infectious Disease Author Type: Physician Type: Consults Filed: 04/11/2021 10:13 AM Note Text: Full consult dictated Unvaccinated 65 YO lady with severe sepsis (POA) due to COVID infection with viral PNA,in ICU with concerns about worsening respiratory failure-S/P negative CTA for PE At risk for deterioration given her age AND breast CA Discussed with ID pharmacy AND ICU attending ,will get a dose of toci if requires high flow Agree with dexa AND remdesivir (monitor CrCl AND LFTs closely) Doubt has superimposed bacterial PNA-check procal Will trend inflammatory markers AND continue supportive measures AFSANEH HEARD M.D [phone] April 11, 2021 10:05 AM Normal [facility] Comp Metabolic Panelon 04-11 Albumin [Mass/Vol] 3.5 g/dL Low 4.0-4.9 [facility] Comment on above: Performed By: #### C RP, RFP, CBC, FERR #### [facility] [address] [facility] [place] [address] ALP [Catalytic activity/Vol] 74 U/L Normal 34-123 [facility] Comment on above: Performed By: #### C RP, RFP, CBC, FERR #### [address] [place] [address] ALT [Catalytic activity/Vol] 24 U/L Normal 0-33 [facility] Comment on above: Performed By: #### C RP, RFP, CBC, FERR #### [address] [place] [address] Anion gap [Moles/Vol] 14 mmol/L Normal 0-15 [facility] Comment on above: Performed By: #### C RP, RFP, CBC, FERR #### [address] [place] [address] AST [Catalytic activity/Vol] 50 U/L High 0-32 [facility] Comment on above: Performed By: #### C RP, RFP, CBC, FERR #### [address] [place] [address] Bilirubin [Mass/Vol] 0.2 mg/dL Normal 0.2-1.3 [facility] Comment on above: Performed By: #### C RP, RFP, CBC, FERR #### [address] [place] [address] Calcium [Mass/Vol] 8.7 mg/dL Normal 8.5-10.2 [facility] Comment on above: Result Comment: Felipe mmended reference range provided for this age range is published by the instrument lower in supervisor. Adult reference ranges have been verified. Performed By: #### C RP, RFP, CBC, FERR #### [facility] [address] [facility] [place] [address] Chloride [Moles/Vol] 102 mmol/L Normal 97-105 [facility] Comment on above: Performed By: #### C RP, RFP, CBC, FERR #### [facility] [address] [facility] [place] [address] CO2 [Moles/Vol] 19 mmol/L Low 22-30 [facility] Comment on above: Performed By: #### C RP, RFP, CBC, FERR #### [place] [id number] [facility] [place] [address] Creatinine [Mass/Vol] 1.10 mg/dL High 0.58-0.96 [facility] Comment on above: Performed By: #### C RP, RFP, CBC, FERR #### [address] [place] [address] eGFR- Amer. >60 Normal >60 [facility] Comment on above: Performed By: #### C RP, RFP, CBC, FERR #### [address] [place] [address] eGFR-All Other Races 50 . Low >60 [facility] Comment on above: Result Comment: eGFR (Estimated GFR) Units of measure: mL/min/1.73 meters squared eGFR is derived from the reexpressed MDRD Study equation using the following parameters: serum creatinine, age, gender and race. The creatinine assay has been calibrated to be traceable to IDMS. An eGFR <60 mL/min/1.73m2 for >3 months is consistent with chronic kidney disease. Refer to KDOQI guidelines for clinical interpretation. In patients with unstable renal function, e.g. those with acute kidney injury, the eGFR may not accurately reflect actual GFR. Performed By: #### C RP, RFP, CBC, FERR #### [facility] [address] [facility] [place] [address] Glucose [Mass/Vol] 110 mg/dL High 74-99 [facility] Comment on above: Performed By: #### C RP, RFP, CBC, FERR #### [facility] [address] [facility] [place] [address] Potassium [Moles/Vol] 4.2 mmol/L Normal 3.7-5.1 [facility] Comment on above: Performed By: #### C RP, RFP, CBC, FERR #### [address] [place] [address] Protein [Mass/Vol] 6.4 g/dL Low 6.6-8.7 [facility] Comment on above: Performed By: #### C RP, RFP, CBC, FERR #### [address] [place] [address] Sodium [Moles/Vol] 135 mmol/L Low 136-144 [facility] Comment on above: Performed By: #### C RP, RFP, CBC, FERR #### [address] [place] [address] Urea nitrogen [Mass/Vol] 18 mg/dL Normal 7-21 [facility] Comment on above: Result Comment: Felipe mmended reference range provided for this age range is published by the instrument lower in supervisor. Adult reference ranges have been verified. Performed By: #### C RP, RFP, CBC, FERR #### [address] [place] [address] Ferritinon 04-11-2021 Ferritin [Mass/Vol] 500.0 ng/mL High 14.7-205.1 [facility] Comment on above: Performed By: #### C RP, RFP, CBC, FERR #### [address] [place] [address] HISTORY PHYSICALon HISTORY PHYSICAL HNO ID: [id number] Author: Gavin Gonzalez MD Service: Hospital Medicine Author Type: Physician Type: HANDP Filed: 04/11/2021 6:33 AM Note Text: DEPARTMENT OF HOSPITAL MEDICINE HISTORY AND PHYSICAL EXAMINATION PATIENT NAME: Bo Monteiro LENGTH OF STAY: 0 HOSPITAL ROOM: [id number] ; AGE: 2 1955; 65 year old ADMITTING PHYSICIAN: Sukumar Castellon MD DATE OF ADMISSION: No admission date for patient encounter. SERVICE - Hospital Medicine Patient admitted to hospitalist team. From 4:30pm-7:00am please page the Hospitalist Cross-cover: [phone] SUBJECTIVE PCP: Loan Dias APRN.[employer] CC: Shortness of breath HPI: Bo Monteiro is a 65 year old FEMALE with PMHx significant for ER/HI positive, HER2 positive invasive ductal carcinoma in 2020 the right breast, hypertension, PVCs. She presented with a chief complaint of shortness of breath and cough reports symptoms have been going on for almost a week and see testing COVID-19 on 04/06/21. Her had similar symptoms and was diagnosed with COVID-19 infection and he is currently admitted at [facility] in the ICU. She was prescribed oral Decadron outpatient she started taking a day prior to admission and also antibody infusion outpatient reports her symptoms continue to worsen and the pulse ox was close to 88% so she came to ED. She also reported chills and some low-grade fevers along with diffuse myalgias and decreased appetite, diarrhea In the ED he kept on 2 L oxygen by nasal cannula with saturation above 90% Labs revealed sodium 135, creatinine 1.19, AST 47 Lactate 1.3 high-sensitivity troponin 10?>11 D-dimer [address] PE: 1. ?Suboptimal timing of contrast bolus administration limits interpretation. ?No central or large vessel pulmonary embolism. 2. ?Bilateral subpleural groundglass opacities, consistent with viral pneumonitis. On arrival to [facility] O2 inc to 4-5 lit to keep her sat >90% Review of Systems GENERAL: ++ malaise , fevers, myalgia HEENT: Negative for frequent or significant headaches., No changes in hearing or vision, no nose bleeds or other nasal problems. NECK: Negative for pain and significant neck swelling RESPIRATORY: ++ cough, shortness of breath. CARDIOVASCULAR: Negative for chest pain, leg swelling or palpitations. GI: Decreased appetite, diarrhea : No history of dysuria, frequency or incontinence MUSCULOSKELETAL: Negative for joint pain or swelling, back pain or muscle pain. SKIN: Negative for rash, and itching. PSYCH: Negative for sleep disturbance, mood disorder and recent psychosocial stressors. HEMATOLOGY/LYMPHOLOGY Negative for prolonged bleeding, bruising easily or swollen nodes. ENDOCRINE: Negative for cold or heat intolerance, polyuria, polydipsia and goiter. NEURO: No history of headaches, syncope, paralysis, seizures or tremors All other reviewed and negative other than HPI. Past Medical History PAST MEDICAL HISTORY Diagnosis Date - Arthritis - Breast cancer (HCC) 04/07/2020 - Ectopic fetus tube removed - Hypertension - Irregular heart beat Past Surgical History PAST SURGICAL HISTORY Procedure Laterality Date - BREAST BIOPSY Right 04/05/2020 - BREAST LUMPECTOMY HX Right 04/22/2020 - SECTION HX x 3 - EXCISION OF CYST 1994 Right breast - IMPLANT CATH INSERTION (AG) 06/08/2020 Prior to Admission Medications amLODIPine (NORVASC) 5 mg tablet, Take 1 tablet by mouth once daily. (Patient taking differently: Take 2.5 mg by mouth once daily. ), Disp: 30 tablet, Rfl: 1 calcium carbonate/vitamin D3 (CALCIUM 600 + D ORAL), Take 1 tablet by mouth once daily. , Disp: , Rfl: aspirin 81 mg chewable tablet, aspirin 81 mg chewable tablet, Disp: , Rfl: Social History Social History Tobacco Use - Smoking status: Former Smoker Years: 1.00 Types: Cigarettes - Smokeless tobacco: Never Used - Tobacco comment: Pt smoked one pack weekly x 1 year. Vaping Use - Vaping Use: Never used Substance Use Topics - Alcohol use: Yes Alcohol/week: 12.0 standard drinks Types: 5 Glasses of Wine (5oz), 7 Glasses of wine per week - Drug use: No Family History FAMILY HISTORY Problem Relation Age of Onset - Hypertension Mother - Stroke Mother - Hypertension Maternal Grandmother - Stroke Maternal Grandmother - Emphysema Father - other (Lung Cancer) Father - Prostate Cancer Brother OBJECTIVE Physical Examination 04/11/21 0520 04/11/21 0558 BP: 128/67 Pulse: 97 Resp: 19 Temp: 37.2 ?C (99 ?F) TempSrc: Oral SpO2: 90% 93% Weight: 90.6 kg (199 lb 11.8 oz) Height: 154.9 cm (5' 1) Body mass index is 37.74 kg/m?. General: AANDOx3 , gets dyspneic w talking Neck: no LAD, no JVD Eyes: PERRLA, EOMI Lungs: decreased breath sounds Heart: RRR, normal S1 and S2, no murmurs, rubs or gallops , left chest mediport in place Abdomen: Soft, non-tender, non-diste (more content not included)... [facility] NURSING PROGon 04-11-2021 NURSING PROG HNO ID: [id number] Author: Jessie Martinez, RN Service: Nursing Author Type: Registered Nurse Type: Nursing Progress Note Filed: 04/11/2021 6:07 AM Note Text: Nursing Progress Note Patient Name: Bo Monteiro Patient Location: [id number] Daily Note: Patient admitted and assessed as charted; noted very short of breath on arrival ; currently on 5 liters of oxygen via NC to sustain POX at 92-93%. MD on site: MD aware of patient's medications she takes at home and will update the record to reflect thus. Patient states she also feels generally very weak at this point. This note was completed by: Jessie Martinez [facility] Procalcitoninon 04-11-2021 Procalcitonin 7.12 ng/mL High <0.09 [facility] Comment on above: Result Comment: For a guided interpretation of test results, please visit the Change in Procalcitonin Calculator, [email or web address]. Performed By: #### C RP, RFP, CBC, FERR #### [facility] [address] [place] [address] Staph aureus PCRon MRSA PCR Negative [facility] Comment on above: Performed By: #### C RP, RFP, CBC, FERR #### [facility] [address] [facility] [place] [address] S aureus Spec Source Nasal Normal [facility] Comment on above: Performed By: #### C RP, RFP, CBC, FERR #### [facility] [address] [facility] [place]., [place] [id number] Staph aureus PCR Positive Critically abnormal [facility] Comment on above: Performed By: #### C RP, RFP, CBC, FERR #### [facility] [address] [facility] [place] [address] Laboratory - Chemistry and C hemistry - challengeon 02-15-2021 Magnesium [Mass/Vol] 2.1 mg/dL 1.6-2.6 [facility] Basophil percentageon 2020 Basophil percentage 4.3 mg/dL 2.5-4.9 [facility] Trichomonas screening teston 01-25-2021 Phosphorus Level 4.3 mg/dL 2.5-4.9 [facility] ALLIED HEALTHon 06-10-2020 ALLIED HEALTH HNO ID: [id number] Author: GAVI Soto (Ct) Service: Radiology Author Type: Clinical Market Development Director Type: Allied Health Filed: 06/10/2020 4:12 PM Note Text: Radiology Service Progress Note DATE OF SERVICE: June 10, 2020 TIME: 4:12 PM PATIENT IDENTITY VERIFICATION COMPLETED USING TWO (2) STANDARD IDENTIFIERS: Name and Date of confirmed by patient verbally and Name and Date of confirmed by identification band. FALL SCREENING: Has the patient had 2 falls in the last year or 1 fall with injury or currently using an Ambulatory Assistive Device (Walker, Cane, Wheelchair, Crutches, etc.)? Emergency Room Patient: Screened in ED PATIENT GENDER DATA: Female. status: : No status: NO. PATIENT RELEVANT IMPLANT DATA REVIEWED: Not Applicable ALLERGIES: Reviewed and unchanged CONTRAST ALLERGY: NO. EXAM: CT -CONTRAST INDUCED NEPHROPATHY RISK FACTORS: Patient age > 60 years CREATININE: Creatinine Date Value Ref Range Status 06/10/2020 0.84 0.58 - 0.96 mg/dL Final 03/21/2018 0.86 0.58 - 0.96 mg/dL Final 03/20/2018 0.87 0.58 - 0.96 mg/dL Final eGFR-All Other Races Date Value Ref Range Status 06/10/2020 >60 . Final Comment: eGFR (Estimated GFR) Units of measure: mL/min/1.73 meters squared eGFR is derived from the reexpressed MDRD Study equation using the following parameters: serum creatinine, age, gender and race. The creatinine assay has been calibrated to be traceable to IDMS. An eGFR <60 mL/min/1.73m2 for >3 months is consistent with chronic kidney disease. Refer to KDOQI guidelines for clinical interpretation. In patients with unstable renal function, e.g. those with acute kidney injury, the eGFR may not accurately reflect actual GFR. eGFR- Date Value Ref Range Status 06/10/2020 >60 Final P.O.C.T. RESULTS: POC done: Yes, See Lab Tab June 10, 2020 TREATMENT: N/A PERIPHERAL IV DATA: Inpatient - refer to LDA documentation RADIOLOGY DEPARTMENT: CT; Exam(s) Completed: Brain , CTA Brain and CTA Neck SIGNATURE: Nicolle Rojas, CT PATIENT NAME: Bo Monteiro DATE: June 10, 2020 TIME: 4:12 PM Normal [facility] CBC and Differentialon 06-10 Abs Baso 0.05 k/uL Normal <0.11 [facility] Comment on above: Performed By: #### C NIURKA CBCDIF ####[facility] Armmbgeobo8423 [address] Abs [place] 0.42 k/uL Normal <0.87 [facility] Comment on above: Performed By: #### C NIURKA CBCDIF ####[facility] Xxjpeitbus5092 [address] Abs Neut 4.78 k/uL Normal 1.45-7.50 [facility] Comment on above: Performed By: #### C NIURKA CBCDIF ####[facility] Agpfuinhax4745 [address] Absolute nRBC <0.01 Normal <0.01 [facility] Comment on above: Performed By: #### C NIURKA CBCDIF ####[facility] [address] [place] [address] Basophils/100 WBC (Bld) 0.7 % [facility] Comment on above: Performed By: #### C MP, CBCDIF ####[facility] [address] [place] [address] DTYPE Auto Diff Normal [facility] Comment on above: Performed By: #### C MP, CBCDIF ####[facility] [address] [place] [address] Eosinophils (Bld) [#/Vol] 0.10 10*3/uL Normal <0.46 [facility] Comment on above: Performed By: #### C MP, CBCDIF ####[facility] [address] [place] [address] Eosinophils/100 WBC (Bld) 1.4 % [facility] Comment on above: Performed By: #### C MP, CBCDIF ####[place] [address] Erythrocyte distribution width (RBC) [Ratio] 13.2 % Normal 11.5-15.0 [facility] Comment on above: Performed By: #### C MP, CBCDIF ####[facility] [address] [place] [address] Hematocrit (Bld) [Volume fraction] 46.2 % High 36.0-46.0 [facility] Comment on above: Performed By: #### C MP, CBCDIF ####[facility] [address] [place] [address] Hemoglobin (Bld) [Mass/Vol] 15.0 g/dL Normal 11.5-15.5 [facility] Comment on above: Performed By: #### C MP, CBCDIF ####[facility] [address] [place] [address] Lymphocytes (Bld) [#/Vol] 1.71 10*3/uL Normal 1.00-4.00 [facility] Comment on above: Performed By: #### C MP, CBCDIF ####[facility] [address] [place] [address] Lymphocytes/100 WBC (Bld) 24.2 % Normal [facility] Comment on above: Performed By: #### C MP, CBCDIF ####[facility] [address] [place] [address] MCH (RBC) [Entitic mass] 30.6 pG Normal 26.0-34.0 [facility] Comment on above: Performed By: #### C MP, CBCDIF ####[facility] [address] [place] [address] MCHC (RBC) [Mass/Vol] 32.5 g/dL Normal 30.5-36.0 [facility] Comment on above: Performed By: #### C MP, CBCDIF ####[facility] [address] [place] [address] MCV (RBC) [Entitic vol] 94.3 fL Normal 80.0-100.0 [facility] Comment on above: Performed By: #### C NIURKA, CBCDIF ####[facility] [address] [place] [address] Monocytes/100 WBC (Bld) 5.9 % Normal [facility] Comment on above: Performed By: #### C NIURKA, CBCDIF ####[facility] [address] [place] [address] Neutrophils/100 WBC (Bld) 67.8 % Normal [facility] Comment on above: Performed By: #### C MP, CBCDIF ####[facility] [address] [place] [address] NRBCs 0.0 /100 WBC Normal 0 [facility] Comment on above: Performed By: #### C NIURKA, CBCDIF ####[facility] [address] [place] [address] Platelet mean volume (Bld) [Entitic vol] 9.8 fL Normal 9.0-12.7 [facility] Comment on above: Performed By: #### C MP, CBCDIF ####[facility] [address] [place] [address] Platelets (Bld) [#/Vol] 260 10*3/uL Normal 150-400 [facility] Comment on above: Performed By: #### C MP, CBCDIF ####[facility] [address] [place] [address] RBC (Bld) [#/Vol] 4.90 10*6/uL Normal 3.90-5.20 [facility] Comment on above: Performed By: #### C MP, CBCDIF ####[facility] Nnpfmewcug0139 [address] WBC (Bld) [#/Vol] 7.06 10*3/uL Normal 3.70-11.00 [facility] Comment on above: Performed By: #### C MP, CBCDIF ####[facility] Algktuxnoo8668 [address] BRAIN WO IVCONon 06-10-[address] BRAIN WO IVCON * * *Final Report* * * DATE OF EXAM: Jun 10 2020 4:11PM [facility] - CT BRAIN WO IVCON / PROCEDURE REASON: Headache, acute, normal neuro exam * * * * Physician Interpretation * * * * EXAMINATION: CTA HEAD W IVCON, CT BRAIN WO IVCON, CTA NECK W IVCON HISTORY: SAH suspected, initial exam HEADACHE TECHNIQUE: Routine CT of the brain without IV contrast. Next, spiral high resolution axial images were obtained through the head, neck and superior mediastinum following bolus administration of intravenous contrast for CT angiography. The data was subsequently post-processed utilizing 3D multi-planar reconstructions, 3D maximum intensity projections, and a tissue segmentation algorithm at a separate workstation under physician supervision. MQ: [id number]_3 Contrast: 80 mL Omnipaque 350 IV Dose-Length Product (DLP): 1475.94 mGy*cm. CT Dose Reduction Employed: Automated exposure control(AEC) and iterative recon COMPARISON: None. RESULT: BRAIN: Acute change: No evidence of an acute infarct or other acute parenchymal process. ASPECT Score = 10 Hemorrhage: No evidence of acute intracranial hemorrhage. ECASS hemorrhagic transformation score = Not Applicable Mass Lesion / Mass Effect: There is no evidence of an intracranial mass or extraaxial fluid collection. No significant mass effect. Chronic change: None apparent. Parenchyma: There is no significant volume loss. The brain parenchyma is otherwise within normal limits for age. Ventricles: The ventricles are within normal limits of size and configuration for age. Other: Small retention cyst the floor the left maxillary sinus. The visualized paranasal sinuses are otherwise grossly clear. The skull and visualized extracranial soft tissues are grossly normal. NECK: Respiratory Therapist (topogram) images: Unremarkable Postop: There is a left-sided Port-A-Cath. Soft tissues: The soft tissue planes are maintained throughout. No evidence of a soft tissue mass in the neck or superior mediastinum. No significant lymphadenopathy is seen. Spine: Alignment is normal. No significant degenerative changes are present. Lung apices: The visualized lung apices are clear. CT ARTERIOGRAM: Extracranial Circulation: Aortic Arch: Left vertebral artery originates directly off the aorta.. There is no significant stenosis in the proximal brachiocephalic vessels. Carotid Stenosis: Right Common: No significant stenosis. Right Internal Carotid Plaque: No significant plaque formation. Right Internal Carotid Stenosis (% by NASCET Criteria): 0 Left Common: No significant stenosis. Left Internal Carotid Plaque: No significant plaque formation. Left Internal Carotid Stenosis (% by NASCET Criteria): 0 Cervical Vertebral Arteries: Patency: Bilateral. Vertebral artery origins are patent bilaterally. Dominance: Bilateral Intracranial Circulation: Spot Sign Presence: Not Applicable Spot Sign Number: Not Applicable Anterior Circulation: Carotid siphons show minimal atherosclerotic calcifications. Caliber of both carotid siphons is normal. No evidence of aneurysm or focal stenosis. The anterior cerebral arteries and middle cerebral arteries are symmetric and normal in appearance without evidence for focal stenosis or aneurysmal dilatation. Vertebrobasilar Circulation: Intracranial vertebral arteries are patent and codominant. Basilar artery and posterior cerebral arteries are normal in caliber bilaterally. IMPRESSION: NORMAL NONCONTRAST CT BRAIN. NORMAL NECK AND INTRACRANIAL CTA. Glass Melt Operator: RODO Transcribe Date/Time: Jun 10 2020 4:16P Dictated by : ANGIE BARCENAS MD This examination was interpreted and the report reviewed and electronically signed by: ANGIE BARCENAS MD on Jun 10 2020 4:22PM EST [id number] [facility] CTA HEAD W IVCONon 0 CTA HEAD W IVCON * * *Final Report* * * DATE OF EXAM: Jun 10 2020 4:11PM [facility] 0022 - CTA HEAD W IVCON / PROCEDURE REASON: SAH suspected, initial exam * * * * Physician Interpretation * * * * EXAMINATION: CTA HEAD W IVCON, CT BRAIN WO IVCON, CTA NECK W IVCON HISTORY: SAH suspected, initial exam HEADACHE TECHNIQUE: Routine CT of the brain without IV contrast. Next, spiral high resolution axial images were obtained through the head, neck and superior mediastinum following bolus administration of intravenous contrast for CT angiography. The data was subsequently post-processed utilizing 3D multi-planar reconstructions, 3D maximum intensity projections, and a tissue segmentation algorithm at a separate workstation under physician supervision. MQ: CTABNPlus_3 Contrast: 80 mL Omnipaque 350 IV Dose-Length Product (DLP): 1475.94 mGy*cm. CT Dose Reduction Employed: Automated exposure control(AEC) and iterative recon COMPARISON: None. RESULT: BRAIN: Acute change: No evidence of an acute infarct or other acute parenchymal process. ASPECT Score = 10 Hemorrhage: No evidence of acute intracranial hemorrhage. ECASS hemorrhagic transformation score = Not Applicable Mass Lesion / Mass Effect: There is no evidence of an intracranial mass or extraaxial fluid collection. No significant mass effect. Chronic change: None apparent. Parenchyma: There is no significant volume loss. The brain parenchyma is otherwise within normal limits for age. Ventricles: The ventricles are within normal limits of size and configuration for age. Other: Small retention cyst the floor the left maxillary sinus. The visualized paranasal sinuses are otherwise grossly clear. The skull and visualized extracranial soft tissues are grossly normal. NECK: Respiratory Therapist (topogram) images: Unremarkable Postop: There is a left-sided Port-A-Cath. Soft tissues: The soft tissue planes are maintained throughout. No evidence of a soft tissue mass in the neck or superior mediastinum. No significant lymphadenopathy is seen. Spine: Alignment is normal. No significant degenerative changes are present. Lung apices: The visualized lung apices are clear. CT ARTERIOGRAM: Extracranial Circulation: Aortic Arch: Left vertebral artery originates directly off the aorta.. There is no significant stenosis in the proximal brachiocephalic vessels. Carotid Stenosis: Right Common: No significant stenosis. Right Internal Carotid Plaque: No significant plaque formation. Right Internal Carotid Stenosis (% by NASCET Criteria): 0 Left Common: No significant stenosis. Left Internal Carotid Plaque: No significant plaque formation. Left Internal Carotid Stenosis (% by NASCET Criteria): 0 Cervical Vertebral Arteries: Patency: Bilateral. Vertebral artery origins are patent bilaterally. Dominance: Bilateral Intracranial Circulation: Spot Sign Presence: Not Applicable Spot Sign Number: Not Applicable Anterior Circulation: Carotid siphons show minimal atherosclerotic calcifications. Caliber of both carotid siphons is normal. No evidence of aneurysm or focal stenosis. The anterior cerebral arteries and middle cerebral arteries are symmetric and normal in appearance without evidence for focal stenosis or aneurysmal dilatation. Vertebrobasilar Circulation: Intracranial vertebral arteries are patent and codominant. Basilar artery and posterior cerebral arteries are normal in caliber bilaterally. IMPRESSION: NORMAL NONCONTRAST CT BRAIN. NORMAL NECK AND INTRACRANIAL CTA. Glass Melt Operator: RODO Transcribe Date/Time: Jun 10 2020 4:16P Dictated by : ANGIE BARCENAS MD This examination was interpreted and the report reviewed and electronically signed by: ANGIE BARCENAS MD on Jun 10 2020 4:22PM EST [id number] [facility] CTA NECK W IVCONon 0 CTA NECK W IVCON * * *Final Report* * * DATE OF EXAM: Jun 10 2020 4:11PM [facility] 0024 - CTA NECK W IVCON / PROCEDURE REASON: SAH suspected, initial exam * * * * Physician Interpretation * * * * EXAMINATION: CTA HEAD W IVCON, CT BRAIN WO IVCON, CTA NECK W IVCON HISTORY: SAH suspected, initial exam HEADACHE TECHNIQUE: Routine CT of the brain without IV contrast. Next, spiral high resolution axial images were obtained through the head, neck and superior mediastinum following bolus administration of intravenous contrast for CT angiography. The data was subsequently post-processed utilizing 3D multi-planar reconstructions, 3D maximum intensity projections, and a tissue segmentation algorithm at a separate workstation under physician supervision. MQ: CTABNPlus_3 Contrast: 80 mL Omnipaque 350 IV Dose-Length Product (DLP): 1475.94 mGy*cm. CT Dose Reduction Employed: Automated exposure control(AEC) and iterative recon COMPARISON: None. RESULT: BRAIN: Acute change: No evidence of an acute infarct or other acute parenchymal process. ASPECT Score = 10 Hemorrhage: No evidence of acute intracranial hemorrhage. ECASS hemorrhagic transformation score = Not Applicable Mass Lesion / Mass Effect: There is no evidence of an intracranial mass or extraaxial fluid collection. No significant mass effect. Chronic change: None apparent. Parenchyma: There is no significant volume loss. The brain parenchyma is otherwise within normal limits for age. Ventricles: The ventricles are within normal limits of size and configuration for age. Other: Small retention cyst the floor the left maxillary sinus. The visualized paranasal sinuses are otherwise grossly clear. The skull and visualized extracranial soft tissues are grossly normal. NECK: Respiratory Therapist (topogram) images: Unremarkable Postop: There is a left-sided Port-A-Cath. Soft tissues: The soft tissue planes are maintained throughout. No evidence of a soft tissue mass in the neck or superior mediastinum. No significant lymphadenopathy is seen. Spine: Alignment is normal. No significant degenerative changes are present. Lung apices: The visualized lung apices are clear. CT ARTERIOGRAM: Extracranial Circulation: Aortic Arch: Left vertebral artery originates directly off the aorta.. There is no significant stenosis in the proximal brachiocephalic vessels. Carotid Stenosis: Right Common: No significant stenosis. Right Internal Carotid Plaque: No significant plaque formation. Right Internal Carotid Stenosis (% by NASCET Criteria): 0 Left Common: No significant stenosis. Left Internal Carotid Plaque: No significant plaque formation. Left Internal Carotid Stenosis (% by NASCET Criteria): 0 Cervical Vertebral Arteries: Patency: Bilateral. Vertebral artery origins are patent bilaterally. Dominance: Bilateral Intracranial Circulation: Spot Sign Presence: Not Applicable Spot Sign Number: Not Applicable Anterior Circulation: Carotid siphons show minimal atherosclerotic calcifications. Caliber of both carotid siphons is normal. No evidence of aneurysm or focal stenosis. The anterior cerebral arteries and middle cerebral arteries are symmetric and normal in appearance without evidence for focal stenosis or aneurysmal dilatation. Vertebrobasilar Circulation: Intracranial vertebral arteries are patent and codominant. Basilar artery and posterior cerebral arteries are normal in caliber bilaterally. IMPRESSION: NORMAL NONCONTRAST CT BRAIN. NORMAL NECK AND INTRACRANIAL CTA. Glass Melt Operator: RODO Transcribe Date/Time: Jun 10 2020 4:16P Dictated by : ANGIE BARCENAS MD This examination was interpreted and the report reviewed and electronically signed by: ANGIE BARCENAS MD on Jun 10 2020 4:22PM EST [id number] Normal [facility] Comp Metabolic Panelon 06-10 Albumin [Mass/Vol] 4.6 g/dL Normal 3.9-4.9 [facility] Comment on above: Performed By: #### C NIURKA CBCDIF ####[facility] Xbr[address]bcnq0840 [phone] ALP [Catalytic activity/Vol] 88 U/L Normal 34-123 [facility] Comment on above: Performed By: #### C NIURKA CBCDIF ####[facility] Rsirxezbpo0584 [phone] ALT [Catalytic activity/Vol] 13 U/L Normal 7-38 [facility] Comment on above: Performed By: #### C MP, CBCDIF ####[facility] [address] [place] [address] Anion gap [Moles/Vol] 12 mmol/L Normal 9-18 [facility] Comment on above: Performed By: #### C MP, CBCDIF ####[facility] [address] [place] [address] AST [Catalytic activity/Vol] 16 U/L Normal 13-35 [facility] Comment on above: Performed By: #### C MP, CBCDIF ####[facility] [address] [place] [address] Bilirubin [Mass/Vol] 0.6 mg/dL Normal 0.2-1.3 [facility] Comment on above: Performed By: #### C MP, CBCDIF ####[facility] [address] [place] [address] Calcium [Mass/Vol] 9.4 mg/dL Normal 8.5-10.2 [facility] Comment on above: Performed By: #### C MP, CBCDIF ####[facility] [address] [place] [address] Chloride [Moles/Vol] 106 mmol/L High 97-105 [facility] Comment on above: Performed By: #### C MP, CBCDIF ####[facility] [address] [place] [address] CO2 [Moles/Vol] 25 mmol/L Normal 22-30 [facility] Comment on above: Performed By: #### C MP, CBCDIF ####[facility] [address] [place] [address] Creatinine [Mass/Vol] 0.84 mg/dL Normal 0.58-0.96 [facility] Comment on above: Performed By: #### C MP, CBCDIF ####[facility] [address] [place] [address] eGFR- Amer. >60 Normal [facility] Comment on above: Performed By: #### C MP, CBCDIF ####[facility] W[address]xkiea3426 [address] GFR/1.73 sq M predicted among non-blacks MDRD (S/P/Bld) [Vol rate/Area] mL/min/{1.73_m2} Normal [facility] Comment on above: Result Comment: eGFR (Estimated GFR) Units of measure: mL/min/1.73 meters squared eGFR is derived from the reexpressed MDRD Study equation using the following parameters: serum creatinine, age, gender and race. The creatinine assay has been calibrated to be traceable to IDMS. An eGFR <60 mL/min/1.73m2 for >3 months is consistent with chronic kidney disease. Refer to KDOQI guidelines for clinical interpretation. In patients with unstable renal function, e.g. those with acute kidney injury, the eGFR may not accurately reflect actual GFR. Performed By: #### C NIURKA, CBCDIF ####[facility] [phone] Glucose [Mass/Vol] 91 mg/dL Normal 74-99 [facility] Comment on above: Result Comment: The [place] Diabetes Association (ADA) provides guidance for cutoff values for fasting glucose and random glucose. The ADA defines fasting as no caloric intake for at least 8 hours. Fasting plasma glucose results between 100 to 125 mg/dL indicate increased risk for diabetes (prediabetes). Fasting plasma glucose results greater than or equal to 126 mg/dL meet the criteria for diagnosis of diabetes. In the absence of unequivocal hyperglycemia, results should be confirmed by repeat testing. In a patient with classic symptoms of hyperglycemia or hyperglycemic crisis, random plasma glucose results greater than or equal to 200 mg/dL meet the criteria for diagnosis of diabetes. Reference: Standards of Medical Care in Diabetes 2016, [place] [employer] Association. Diabetes Care. 2016.39(Suppl 1). Performed By: #### C NIURKA, CBCDIF ####[facility] [address] [place] [phone] Potassium [Moles/Vol] 4.1 mmol/L Normal 3.7-5.1 [facility] Comment on above: Performed By: #### C NIURKA, CBCDIF ####[facility] [address] [place] [phone] Protein [Mass/Vol] 6.7 g/dL Normal 6.3-8.0 [facility] Comment on above: Performed By: #### C MP, CBCDIF ####[facility] Odiummorzl4199 [address]721[address]160 Sodium [Moles/Vol] 143 mmol/L Normal 136-144 [facility] Comment on above: Performed By: #### C MP, CBCDIF ####[facility] Bjc[address]imzmxr6428 [address]721[address]5160 Urea nitrogen [Mass/Vol] 12 mg/dL Normal 7-21 [facility] Comment on above: Performed By: #### C MP, CBCDIF ####[facility] Afke[address]uiwcy9314 [address]721[address]160 ED NOTEon 06-10-2020 ED NOTE HNO ID: [id number] Author: Catrina HendricksonRn) BERNABE [place] Service: ? Author Type: Registered Nurse Type: ED Notes Filed: 06/10/2020 4:46 PM Note Text: Discharged pt. with diagnosis of headache. Discharge and follow up instructions given. Pt. verbalized understanding of discharge instructions. Pt. has no further questions and/or concerns at this time. Heplock d/c'd. Pt. ambulates with steady gait. [facility] ED NOTE HNO ID: [id number] Author: Catrina Zavala) BERNABE [place] Service: ? Author Type: Registered Nurse Type: ED Notes Filed: 06/10/2020 3:42 PM Note Text: Pt placed on 1L NC per verbal order from Abelardo ROY. [facility] ED NOTE HNO ID: [id number] Author: Catrina Zavala) BERNABE [place] Service: ? Author Type: Registered Nurse Type: ED Notes Filed: 06/10/2020 2:31 PM Note Text: Assumed care of patient. Pt. comes to ED for headache. C/O headache x 2 days, occipital headache, does get some relief with stretching neck. Pt reports she was at IR for port placement 2 days ago and has had headache since. Neuro assessment WNL except headache. Speech is clear. Pt. is alert and oriented X 3. ABC's intact, respirations even and unlabored. Skin acyanotic, warm and dry. Denies CP/SOB, numbness/tingling, weak/dizzy, fever/chills, n/v/d. Will notify MD of any acute changes. Call light within reach, ID, allergy band on. Normal [facility] ED NOTE HNO ID: [id number] Author: Ann (Rn) BERNABE [place] Service: Nursing Author Type: Registered Nurse Type: ED Notes Filed: 06/10/2020 1:56 PM Note Text: Pt presents to ED with c/o occipital headache that started two days ago. She had a med port placed two days ago and has the headache since. She called PCP and they told her to take a dose of her norvasc and if it continued to go to the ER. She denies vision changes, balance problem, or weakness Normal [facility] ED PROV NOTEon 06-10-2020 ED PROV NOTE HNO ID: [id number] Author: Hans Reynolds Service: Emergency Medicine Author Type: Physician Type: ED Provider Notes Filed: 06/10/2020 7:31 PM Note Text: ED Provider Note Patient Name: Bo Monteiro SERVICE DATE: 06/10/20 History Patient presents with: Headache: 2 days 64-year-old female with a past medical history of breast cancer, hypertension, status post Port-A-Cath that was placed a couple days ago, presents to the ED today for headache over the last 2 days after having her procedure. Patient describes a dull 7 out of 1018 headache in the right side of her occipital region that has been constant throughout the last 2 days is now resolved despite taking Tylenol. Patient states that she never usually gets headaches. She denies any confusion, blurry vision, neck pain or stiffness, denies any fevers, chest pain or back pain, denies any abdominal pain. Denies any generalized weakness, slurred speech, blurry vision, or numbness in upper or lower extremities. She denies any other complaints. PAST MEDICAL HISTORY Diagnosis Date - Arthritis - Breast cancer (HCC) 04/07/2020 - Ectopic fetus tube removed - Hypertension - Irregular heart beat PAST SURGICAL HISTORY Procedure Laterality Date - BREAST BIOPSY Right 04/05/2020 - BREAST LUMPECTOMY HX Right 04/22/2020 - SECTION HX x 3 - EXCISION OF CYST 1994 Right breast - IMPLANT CATH INSERTION (AG) 06/08/2020 FAMILY HISTORY Problem Relation Age of Onset - Hypertension Mother - Stroke Mother - Hypertension Maternal Grandmother - Stroke Maternal Grandmother - Emphysema Father - other (Lung Cancer) Father - Prostate Cancer Brother Social History Tobacco Use - Smoking status: Former Smoker Years: 1.00 Types: Cigarettes - Smokeless tobacco: Never Used - Tobacco comment: Pt smoked one pack weekly x 1 year. Substance and Sexual Activity - Alcohol use: Yes Alcohol/week: 12.0 standard drinks Types: 5 Glasses of Wine (5oz), 7 Glasses of wine per week Frequency: 2-3 times a week Drinks per session: 3 or 4 - Drug use: No - Sexual activity: Not on file ALLERGIES Allergen Reactions - Oxycodone-Acetamino* Rash - Tape [Adhesive Tape* Rash Review of Systems Constitutional: Negative for chills and fever. HENT: Negative for drooling, ear discharge, hearing loss, mouth sores, postnasal drip, sneezing and voice change. Eyes: Negative for photophobia and visual disturbance. Respiratory: Negative for chest tightness, shortness of breath and wheezing. Cardiovascular: Negative for chest pain and palpitations. Gastrointestinal: Negative for abdominal distention, abdominal pain, anal bleeding, blood in stool, constipation, diarrhea, nausea, rectal pain and vomiting. Genitourinary: Negative for dysuria, flank pain, hematuria, pelvic pain, vaginal bleeding and vaginal discharge. Musculoskeletal: Negative for arthralgias, neck pain and neck stiffness. Skin: Negative for color change. Neurological: Positive for light-headedness and headaches. Negative for dizziness and numbness. Psychiatric/Behavioral: Negative for agitation and confusion. The patient is not hyperactive. Physical Exam BP 160/94 Pulse 81 Temp (Src) 97.7 (Temporal) Resp 18 Wt 179 lb (81.2kg) SpO2 99% O2 Therapy: Room Air, Liters: 1 Physical Exam Constitutional: Appearance: She is well-developed. HENT: Head: Normocephalic and atraumatic. Eyes: Conjunctiva/sclera: Conjunctivae normal. Neck: Musculoskeletal: Normal range of motion and neck supple. Cardiovascular: Rate and Rhythm: Normal rate and regular rhythm. Pulmonary: Effort: Pulmonary effort is normal. No respiratory distress. Breath sounds: Normal breath sounds. No wheezing. Abdominal: General: Bowel sounds are normal. Palpations: Abdomen is soft. Musculoskeletal: Normal range of motion. Skin: General: Skin is warm and dry. Neurological: General: No focal deficit present. Mental Status: She is alert and oriented to person, place, and time. GCS: GCS eye subscore is 4. GCS verbal subscore is 5. GCS motor subscore is 6. Comments: Patient is alert and oriented x 3. There is no focal neuro deficit noted on exam, affect is normal, speech is normal to rate and articulation, short-term and long-term memory are intact, PERRLA intact, no nystagmus, no ataxia or aphasia, sensation intact with upper and lower extremities, there is no weakness with upper and lower extremities bilaterally, 5/5 strength in both upper and lower extremities, [id number] intact, [id number]-[id number]-[id number] intact, rapid alternative movements intact. Psychiatric: Behavior: Behavior normal. Diagnostic Testing ED Labs Ordered and Reviewed COMP METABOLIC PANEL - Abnormal; Notable for the following components: Result Value Ref Range Chloride 106 (*) 97 - 105 mmol/L All other components within normal limits CBC + DIFF - Abnormal; Notable for the following components: Hematocrit 46.2 (*) 36.0 - 46.0 % All other components within normal limits CT BRAIN WO IVCON Final Result IMPRESSION: NORMAL NONCONTRAST CT BRAIN. NORMAL NECK AND INTRACRANIAL CTA. Glass Melt Operator: [facility] Transcribe Date/Time: Jun 10 2020 4:16P Dictated by : ANGIE BARCENAS MD This examination was interpreted and the report reviewed and electronically signed by: ANGIE BARCENAS MD on Jun 10 2020 4:22PM EST CTA HEAD W IVCON Final Result IMPRESSION: NORMAL NONCONTRAST CT BRAIN. NORMAL NECK AND INTRACRANIAL CTA. Glass Melt Operator: [facility] Transcribe Date/Time: Jun 10 2020 4:16P Dictated by : ANGIE BARCENAS MD This examination was interpreted and the report reviewed and electronically signed by: ANGIE BARCENAS MD on Jun 10 2020 4:22PM EST CTA NECK W IVCON Final Result IMPRESSION: NORMAL NONCONTRAST CT BRAIN. NORMAL NECK AND INTRACRANIAL CTA. Glass Melt Operator: [facility] Transcribe Date/Time: Jun 10 2020 4:16P Dictated by : ANGIE BARCENAS MD This examination was interpreted and the report reviewed and electronically signed by: ANGIE BARCENAS MD on Jun 10 2020 4:22PM EST Results for orders placed or performed during the hospital encounter of 06/10/20 COMP METABOLIC PANEL Result Value Ref Range Protein, Total 6.7 6.3 - 8.0 g/dL Albumin 4.6 3.9 - 4.9 g/dL Calcium 9.4 8.5 - 10.2 mg/dL Bilirubin, Total 0.6 0.2 - 1.3 mg/dL Alkaline Phosphatase 88 34 - 123 U/L AST 16 13 - 35 U/L Glucose 91 74 - 99 mg/dL BUN 12 7 - 21 mg/dL Creatinine 0.84 0.58 - 0.96 mg/dL Sodium 143 136 - 144 mmol/L Potassium 4.1 3.7 - 5.1 mmol/L Chloride 106 (H) 97 - 105 mmol/L CO2 25 22 - 30 mmol/L Anion Gap 12 9 - 18 mmol/L ALT 13 7 - 38 U/L eGFR- >60 eGFR-All Other Races >60 . CBC + DIFF Result Value Ref Range WBC 7.06 3.70 - 11.00 k/uL RBC 4.90 3.90 - 5.20 m/uL Hemoglobin 15.0 11.5 - 15.5 g/dL Hematocrit 46.2 (H) 36.0 - 46.0 % MCV 94.3 80.0 - 100.0 fL MCH 30.6 26.0 - 34.0 pG MCHC 32.5 30.5 - 36.0 g/dL RDW-CV 13.2 11.5 - 15.0 % Platelet Count 260 150 - 400 k/uL MPV 9.8 9.0 - 12.7 fL Neut% 67.8 % Abs Neut (ANC) 4.78 1.45 - 7.50 k/uL Lymph% 24.2 % Abs Lymph 1.71 1.00 - 4.00 k/uL Marinette% 5.9 % Abs Marinette 0.42 <0.87 k/uL Eosin% 1.4 % Abs Eosin 0.10 <0.46 k/uL Baso% 0.7 % Abs Baso 0.05 <0.11 k/uL Nucleated Reds 0.0 0 /100 WBC Absolute nRBC <0.01 <0.01 k/uL Diff Type Auto Diff Procedures ED Course / Clinical Impression Clinical Impressions as of Jun 10 1931 Headache disorder Essential hypertension (R51.9) Headache disorder (primary encounter diagnosis) Comment: acute Plan: Rest See pcp Home meds Return to ed if sx worsen (I10) Essential hypertension Comment: acute Plan: Rest See pcp Home meds Return to ed if sx worsen MDM / Disposition / Plan The medical record is reviewed.Triage note is reviewed and incorporated.The nursing note is reviewed and consistent with patient's history and physical exam findings. The vital signs were reviewed and the vital signs are : BP 161/94 Pulse (!) 93 Temp 36.5 ?C (97.7 ?F) (Temporal) Resp 16 Wt 81.2 kg (179 lb) SpO2 100% BMI 31.96 kg/m? This is a 64 year old female with a pmh of breast cancer who presents to the ED with a chief complaint of headache who is, afebrile , hemodynamically stable, in no acute distress patient whose symptoms are controlled in the ED with ivf, compazine and benadryl . The plan is to obtain labs, ct and cta. Based on patient's pmh, chief complaint and physical exam findings, differential diagnoses include but is not limited, stroke vs intracranial process, vs SAH, vs aneurysm vs migraine vs tension headache vs cluster headache. LABS Reveal : cbc and cmp within normal limits CT directly visualized by me and independently interpreted by radiologist showed : No acute process DIFFERENTIAL DIAGNOSES: : Based on patient's physical exam findings, clinical picture, lab results and imaging studies that were performed here today in the ED, at this time, the following differential diagnoses such as infection/anemia/electrolyt e imbalance is less likely due to unremarkable cbc and cmp. The following differential diagnosis such as intracranial process/SAH/aneurysm is less likely due to unremarkable ct and cta.The following differential diagnosis such as meningitis is less likely due to unremarkable exam , no fever, no neck pain or neck stiffness ASSESSMENT AND PLAN: 64-year-old female with a past medical history of hypertension, breast cancer, presents to the ED today for a headache over the last couple days. Vitals here today unremarkable, CBC and CMP unremarkable, headache cocktail given and patient felt slightly better and her headache improved from a 9 out of 10 to a 2 out of [address] and CTA of the brain unremarkable. At this time patient feels comfortable and would like to go home. She will follow-up closely with her PCP. Return if her symptoms worsen. DISCHARGE INSTRUCTIONS The patient has remained hemodynamically stable throughout the entire ED visit and is without objective evidence or laboratory findings for acute process requiring urgent intervention or hospitalization. The patient and/or family had all the tests and diagnosis explained to them and were given both verbal and written discharge instructions. I answered the patient's question as well as family to the best of my ability about the patient's symptoms. The patient is stable for discharge, and patient is instructed to follow up with pcp and educated to return to ed if symptoms worsen or starts to experience any new symptoms. I did educate the patient that at this time there is no indication for urgent intervention or hospitalization, however certain conditions or diagnosis sometimes take time to present, therefore if symptoms worsen, patient should presents back to the ED. Patient and family are agreeable with plan and are comfortable with the disposition. . At this time, based on the patient's history, physical exam findings, lab results and clinical picture , the most likely diagnosis is headache, htn Pt instructed to follow up with PCP in 1-2 days Discharge care instructions, medications, follow up instructions, and reasons to return to the ED immediately, such as worsening of symptoms or any new symptoms, were provided verbally and in writing to patient (patient guardian / operations representative), who verbalized understanding. The attending who evaluated and managed this patient was Dr. Reynolds. This note was partially generated using Polar voice recognition system, and there may be some incorrect words, spellings, and punctuation that were not noted in checking the note before saving SIGNATURE: SHAW Graham 06/10/20 7430 Attending Note: I have personally performed a [id number] assessment of the patient and have reviewed the PA note. My [place] findings include: History: A 64-year-old female who recently had a Port-A-Cath placed states that she woke up from her procedure with a headache in her right occipital region, she rates as a 7 out of 10, light makes it worse denies any numbness or weakness of her arms or legs denies balance or vision difficulty. Denies history of migraine headaches or previous similar headaches Physical exam Patient is sitting in a chair, alert no distress Heart regular rate and rhythm no murmurs rubs or gallops lungs are clear to auscultation bilaterally Cranial nerves are intact grasp equal and symmetric bilaterally strength 5/5 upper and lower extremity muscle groups sensation is intact all 4 extremities light touch gait is normal Romberg sign negative there is no pronator drift finger-nose testing normal bilaterally Assessment and plan: After receiving headache cocktail she is now feeling much better CT and CT angiograms are read by radiology as negative she will be discharged home instructed to follow-up with her primary care doctor return to ED for new or worse symptoms Hans Reynolds 06/10/20 193 [facility] ANES POSTPROC EVALon 020 ANES POSTPROC EVAL HNO ID: [id number] Author: Leo Velasquez Service: ? Author Type: Anesthesiologist Type: Anesthesia Postprocedure Evaluation Filed: 06/08/2020 4:16 PM Note Text: POST ANESTHESIA EVALUATION NOTE : 1955 Procedure Summary Date: 06/08/20 Room / Location: [place] OR06 / ME OR Anesthesia Start: 1024 Anesthesia Stop: 1114 Procedure: INSERTION CATHETER PORT-A-CATH WITH C-ARM (Left ) Diagnosis: History of right breast cancer Surgeons: Jose Haro Responsible Provider: Leo Velasquez Anesthesia Type: MAC ASA Status: 3 Anesthesia Type: MAC Last vitals Vitals Value Taken Time BP 149/80 06/08/20 1145 Temp 37.1 ?C (98.8 ?F) 06/08/20 1145 Pulse 72 06/08/20 1149 Resp 14 06/08/20 1149 SpO2 98 % 06/08/20 1149 Vitals shown include unvalidated device data. Post Anesthesia Patient Status Patient Evaluation: PACU. PACU/ICU Patient Condition: stable. Anticipated Disposition: phase 2 then home. Neurological Status: aware and responsive. Pulmonary Status: breathing comfortably on room air Airway Control: returned to baseline unsupported. Cardiovascular Status: stable. Pain Management: clinically adequate - multimodal analgesia pain management approach Postoperative Hydration: acceptable. Intraoperative Events: no significant anesthesia events Post Operative Nausea/Vomiting Status: Anesthetic Observations: no significant anesthetic observations Recommendation: continue current plan of care. SIGNATURE: Leo Velasquez MD PATIENT NAME: Bo Monteiro DATE: June 08, 2020 TIME: 4:16 PM CSN: [id number] [facility] ANES PRE-OPon 06-08-2020 ANES PRE-OP HNO ID: [id number] Author: Leo Velasquez Service: ? Author Type: Anesthesiologist Type: Anesthesia Preprocedure Evaluation Filed: 06/08/2020 9:21 AM Note Text: ANESTHESIOLOGY DAY OF SURGERY NOTE : 1955 Procedure(s) (LRB): INSERTION CATHETER PORT-A-CATH WITH C-ARM (Left) Surgeon(s): Jose Haro Estimated body mass index is 31.96 kg/m? as calculated from the following: Height as of this encounter: 159.4 cm (5' 2.75). Weight as of this encounter: 81.2 kg (179 lb). Most recent hematocrit and potassium results: Hematocrit 45.1 03/21/2018 Potassium 3.9 03/21/2018 Relevant Problems CARDIO (+) Asymptomatic PVCs (+) HTN (hypertension) I - PHYSICAL EVALUATION AIRWAY Patient intubated: No. Tracheostomy tube not present Mallampati: II. TM distance: >3 FB. Neck ROM: full ROM without neurological symptoms. Mouth opening: adequate. Additional exam findings: no II - ANESTHESIA PLAN ASA Score: 3 Anesthetic Plan: MAC NPO Status: adequate Monitoring plan: standard ASA. Postoperative analgesic plan: parenteral or oral opioids and multimodal analgesia. Anesthetic Risks, Benefits, Alternatives, Personnel Discussed. Consent obtained from: patient. Patient / Surrogate agrees to blood products: blood products not planned Significant changes in the patient condition since the History and Physical, not otherwise documented in primary service progress note: no. Vitals Value Taken Time BP 166/79 06/08/20 0822 Pulse Resp 20 06/08/20821 Temp 36.3 ?C (97.3 ?F) 06/08/20 0822 SpO2 98 % 06/08/20 0822 Facility-Administered Medications as of 06/08/2020 Medication Dose Route Frequency - lactated ringers infusion 30 mL/hr INTRAVENOUS CONTINUOUS - ceFAZolin iv piggyback 2 g in D5W (iso-osmotic) 100 mL (ANCEF) 2 g INTRAVENOUS Pre-Op Once Outpatient Medications as of 06/08/2020 Medication Sig - amLODIPine (NORVASC) 5 mg tablet Take 1 tablet by mouth once daily. (Patient taking differently: Take 2.5 mg by mouth once daily. ) - calcium carbonate/vitamin D3 (CALCIUM 600 + D ORAL) Take 1 tablet by mouth once daily. - aspirin 81 mg chewable tablet aspirin 81 mg chewable tablet I have interviewed and examined the patient. I have reviewed the medical record and/or the pre-anesthesia evaluation, pertinent labs, and test results. This contains updated information obtained within 48 hours of Surgery/Procedure. SIGNATURE: Leo Velasquez MD PATIENT NAME: Bo Monteiro DATE: June 08, 2020 TIME: 9:21 AM CSN: [id number] [facility] BRIEF OP NOTon 06-08-2020 BRIEF OP NOT HNO ID: [id number] Author: Jose Haro Service: General Surgery Author Type: Physician Type: Brief Op Note Filed: 06/08/2020 11:16 AM Note Text: BRIEF OPERATIVE NOTATION FOR SURGICAL PROCEDURE. Bo Monteiro 1955 [id number] female LOG ID: [id number] Surgery/Procedure Date: 06/08/2020 Incision/Procedure Start Time: 10:33 AM Incision Close/Procedure End Time: 11:03 AM Surgeon(s)/Proceduralist(s) and Refrigeration Houseman(s): Surgeon(s) and Role: * Jose Haro - Primary REFERRING PHYSICIAN: Outpatient DEPT: [facility] PROVIDER: Flor POS: [id number] ANESTHESIA: Monitored Anesthesia Care ASA CLASS: 3 - Severe DIAGNOSIS: right breast cancer PROCEDURE: left Subclavian portacath - [id number] and Fluoroscopic for vascular access - 43679-816-37 IVF: 700 EBL: 10 Specimens: ADDITIONAL DIAGNOSES: FINDINGS: COMPLICATIONS: None PMHx - PAST MEDICAL HISTORY Diagnosis Date - Arthritis - Breast cancer (HCC) 04/07/2020 - Ectopic fetus tube removed - Hypertension - Irregular heart beat COMORBIDITIES - Current Cancer Therapy Post Op Occurrences - None Wound Classification - Clean Operative note dictated in the dictation system. - [id number] Jose Haro MD [facility] HISTORY PHYSICALon 0 HISTORY PHYSICAL HNO ID: [id number] Author: Jose Haro Service: General Surgery Author Type: Physician Type: HANDP Filed: 06/08/2020 10:06 AM Note Text: HISTORY AND PHYSICAL ? Bo Monteiro 1955 ? ? REFERRING PHYSICIAN: ? CHIEF COMPLAINT: ? HPI: The patient is a 64 year old female with a diagnosis of right breast cancer. Bo is currently scheduled to undergo chemotherapy and needs vascular access for treatment. The patient denies a prior history of central venous access. ? The patient is left hand dominant. ? PAST MEDICAL HISTORY PAST MEDICAL HISTORY Diagnosis Date - Arthritis ? - Breast cancer (HCC) 04/07/2020 - Ectopic fetus ? ? tube removed - Hypertension ? - Irregular heart beat ? ? ? PAST SURGICAL HISTORY PAST SURGICAL HISTORY Procedure Laterality Date - BREAST BIOPSY Right 04/05/2020 - BREAST LUMPECTOMY HX Right 04/22/2020 - SECTION HX ? ? ? x 3 - EXCISION OF CYST ? 1994 ? Right breast ? ? ? CURRENT MEDICATIONS Current Outpatient Medications Medication Sig Dispense Refill - amLODIPine (NORVASC) 5 mg tablet Take 1 tablet by mouth once daily. (Patient taking differently: Take 2.5 mg by mouth once daily. ) 30 tablet 1 - calcium carbonate/vitamin D3 (CALCIUM 600 + D ORAL) Take 1 tablet by mouth once daily. ? ? ? - aspirin 81 mg chewable tablet aspirin 81 mg chewable tablet ? ? ? No current facility-administered medications for this visit. ? ? ALLERGIES: Oxycodone-Acetaminophen and Tape [Adhesive Tape-Silicones] ? PERSONAL HISTORY: SOCIAL HISTORY Social History ? Tobacco Use - Smoking status: Former Smoker ? ? Years: 1.00 ? ? Types: Cigarettes - Smokeless tobacco: Never Used - Tobacco comment: Pt smoked one pack weekly x 1 year. Substance Use Topics - Alcohol use: Yes ? ? Alcohol/week: 12.0 standard drinks ? ? Types: 5 Glasses of Wine (5oz), 7 Glasses of wine per week ? ? Frequency: 2-3 times a week ? ? Drinks per session: 3 or 4 - Drug use: No ? FAMILY HISTORY: FAMILY HISTORY FAMILY HISTORY Problem Relation Age of Onset - Hypertension Mother ? - Stroke Mother ? - Hypertension Maternal Grandmother ? - Stroke Maternal Grandmother ? - Emphysema Father ? - other (Lung Cancer) Father ? - Prostate Cancer Brother ? ? ? REVIEW OF SYSTEMS: ?General: ??The patient denies?fatigue, denies?weight loss, denies?weight gain, denies?feeling hot, and denies?feelings of cold. ?Eyes: ?The patient denies?glaucoma, NOTES?eye injury/surgery, does not wear?glasses or contacts. ?Ear/Nose/Throat: ?The patient denies?allergies, denies?hayfever, denies?ear infections, and denies?bloody noses. ?Cardiovascular: ?The patient denies?chest pain, denies?heart disease, denies?high blood pressure, denies?high cholesterol, and denies?poor circulation. ?Respiratory: ?The patient denies?tuberculosis, denies?pneumonia, denies?frequent cough, denies?shortness of breath, and denies?coughing up blood. ?Gastrointestinal: ?The patient denies?difficulty swallowing, denies?acid reflux, denies?ulcers, denies?jaundice/hepatitis, denies?gallbladder problems, denies?vomiting, denies?black or tarry stools, denies?hemorrhoids, denies?bleeding from rectum, denies?diverticulitis, denies?constipation, denies?diarrhea, denies?loss of stool control, and denies?hernias. ?Kidney/Bladder: ?The patient denies?kidney stones, denies?urine infections, and denies?bloody urine. ?Skin: ?The patient denies?a history of skin cancer, denies?bleeding/changing moles, and NOTES?a history of skin rash. ?Neurologic: ?The patient denies?a history of epilepsy/convulsions, denies?headaches, denies?head/spinal injuries, and denies?stroke/TIA. ?Psychiatric: ?The patient denies?psychiatric medications, denies?depression, and denies?voices. ?Endocrine: ?The patient denies?thyroid disorders, denies?diabetes, and denies?hormonal problems. ?Hematologic: ?The patient denies?a history of bruising, denies?bleeding, and denies?anemia. ?Infections: ?The patient NOTES?a history of measles and mumps, denies?rheumatic fever, and denies?sexually transmitted diseases. ?Musculoskeletal: ?The patient denies?back pain/injury, denies?back problems, denies?sciatica, denies knee/foot trouble, NOTES?arthritis, or denies?gout PHYSICAL EXAMINATION: ? General: The patient is 64 year old female, well nourished, well hydrated in no acute distress. The patient is oriented to time, place, and person. ? VITALS: Pulse 101, temperature 36.7 ?C (98.1 ?F), weight 81.2 kg (179 lb), SpO2 97 %. Body mass index is 31.96 kg/m?. ? HEENT: Normal cephalic, ataumatic, pupils are equally round, sclera are anicteric, mucous membranes are moist, oropharynx is clear. Neck has no masses, asymmetry or lymphadenopathy. Thyroid is unremarkable. ? Respiratory: Clear to auscultation and percussion. Normal respiratory excursion and pattern. ? Cardiac: Examination is regular rate and rhythm. ? Abdominal exam: Soft, nontender, with no palpable masses. No hepatosplenomegaly. No palpable hernias. ? Rectal exam: exam deferred ? Extremities: no clubbing, cyanosis or edema. No adenopathy. ? Other: ? ? LABORATORY VALUES: As Noted ? RADIOLOGIC STUDIES: As Noted ? Assessment IMPRESSION: Right breast cancer, need for IV access ? PLAN: I plan to perform a left sided port a cath placement. The planned surgical procedure was discussed extensively with the patient. The risks, benefits, anticipated outcomes and possible complications were mentioned. My staff has also explained the procedure in understandable terms and the patient was given the option to take printed material concerning the planned procedure. The patient had the opportunity to ask questions concerning the planned procedure. The patient freely consents to the planned procedure. ? Planned Procedure: left Subclavian portacath - 54382-332 and Fluoroscopic for vascular access - 72190-787-95 ? Patient Weight Last 1 Encounter Wt Readings: Date: Wt: 05/31/2020 81.2 kg (179 lb) ? Antibiotic: Ancef 2gm IVPB research and evaluation analyst to OR ? Planned Anesthetic: MAC with local ? I ??? plan to access the port at the time of surgery. ? The patient was offered a surgery/procedure at a [facility] facility. The surgeon/proceduralist and patient have discussed in detail the risk of exposure to and/or potential harm posed by the COVID-19 virus with having a surgery/procedure at this time versus the risk of? delaying the surgery/procedure. It is not possible to know either the risk of delaying the surgery or procedure or chance of getting an infection with perfect accuracy, but a joint decision was made between the patient and the surgeon/proceduralist ?to proceed at this time with the scheduled surgery/procedure as indicated on the consent form. ? ? ? Diagnoses: (Z85.3) History of right breast cancer (primary encounter diagnosis) ? __ Jose Haro MD [facility] OPERATIVE NOon 06-08-2020 OPERATIVE NO HNO ID: [id number] Author: Jose Haro Service: General Surgery Author Type: Physician Type: Operative Report Filed: 06/08/2020 1:08 PM Note Text: [facility] - Operative Report BO MONTEIRO : 1955 AGE: 64. SEX: F PATIENT TYPE: A HOSP SVC: [facility] LOCATION: [facility] ATTENDING PHYSICIAN: Jose Haro M.D. CSN NUMBER: [id number] DATE OF SURGERY/PROCEDURE: 06/08/2020 INCISION/PROCEDURE START TIME: 10:32 a.m. INCISION CLOSE/PROCEDURE END TIME: 11:03 a.m. PREOPERATIVE DIAGNOSIS: Right breast cancer, need for IV access. POSTOPERATIVE DIAGNOSIS: Left subclavian Port-A-Cath placement with fluoroscopy. SURGEON: Jose Haro M.D. FUR TRAPPER: SURGERY/PROCEDURE: Left subclavian portacath placement with fluoroscopy ANESTHESIA: Local MAC. LOG ID: [id number]. ANESTHESIOLOGIST: Leo Velasquez. ASA: 3. INTRAVENOUS FLUIDS: 700 mL. ESTIMATED BLOOD LOSS: 10 mL. URINE OUTPUT: No catheter. FINDINGS: As described above. SPECIMENS: None. DRAINS: None. COMPLICATIONS: None. DISPOSITION: Patient was taken to PACU in stable condition. IMPLANTS: PowerPort reference #[id number], lot #[id number], expires 06/18/2021. DESCRIPTION OF PROCEDURE: Patient's left chest was marked in the holding area. The patient concurred this with planned insertion site. She was brought to the operative suite. Sign-in was performed verifying patient, site, procedure, position, critical nursing information, VTE, and antibiotic prophylaxis. The patient received 2 g of Ancef and sequential compression devices placed. Following IV sedation, the left neck and chest were prepped and draped in usual fashion. Time- out was performed verifying patient, site, procedure, position. Local anesthetic was injected and a Seldinger was used to access the left subclavian vein on the 1st attempt. A guidewire was inserted to the SVC-RA region under fluoroscopic control. Following this, local anesthetic injected. Incision made a pocket for the port site. Next, the catheter tunneled from the port site to the wire site. Under fluoroscopic control introducer sheath and dilator inserted. Wire and dilator removed. Catheter fed the introducer sheath to the SVC-RA region and the introducer sheath was removed. There was good return of venous blood using flow of saline through the system. Fluoroscopy demonstrated good position of the tip of the catheter. The catheter was cut to length affixed to the port with a locking ring and secured the pocket with two 2-0 Prolene sutures. There was good return of venous blood using flow of saline through the system. Fluoroscopy demonstrated good positioning of system. Subcutaneous fat closed with 3-0 Vicryl sutures. Skin was closed with 4-0 Monocryl running interrupted subcuticular sutures. Steri-Strips were applied. Fluoroscopy demonstrated good positioning of the system. The port was again accessed. Good return of venous blood using flow of saline flushed with 3 mL of 100 unit/mL heparin. Dressing applied. The patient was taken to recovery with plans for postprocedure chest x-ray. Jose Haro M.D. RG:[id number] /[id number] [facility] XR CHEST 1V FRONTAL PORTon 1 XR CHEST 1V FRONTAL PORT * * *Final Report* * * DATE OF EXAM: Jun 08 2020 11:51AM MDX [id number] - XR CHEST 1V FRONTAL PORT / PROCEDURE REASON: Evaluate tube, line or lead position * * * * Physician Interpretation * * * * EXAMINATION: CHEST RADIOGRAPH (PORTABLE SINGLE VIEW AP) Exam Date/Time: 06/08/2020 11:51 AM CLINICAL HISTORY: Evaluate tube, line or lead position MQ: [id number] Comparison: 03/19/2018 RESULT: Lines, tubes, and devices: Right Mediport with distal tip in expected region of the caval atrial junction. Lungs and pleura: No pneumothorax, infiltrate or pleural effusion. Cardiomediastinal silhouette: Stable cardiomediastinal silhouette. IMPRESSION: Status post LEFT Mediport placement Glass Melt Operator: RODO Transcribe Date/Time: Jun 08 2020 12:06P Dictated by : JESSIE LOUIS MD This examination was interpreted and the report reviewed and electronically signed by: JESSIE LOUIS MD on Jun 08 2020 12:07PM EST [id number] [facility] HOSPon 05-31-2020 HOSP Patient:Emmy Monteiro MRN: Height:5' 2.75(1.594 m) Weight:179 lb (81.194 kg) Outpatient Medications as of 06/08/20: amLODIPine (NORVASC) 5 mg tablet calcium carbonate/vitamin D3 (CALCIUM 600 + D ORAL) aspirin 81 mg chewable tablet Admission/Clinic Administered Medications as of 06/08/20: lactated ringers infusion ceFAZolin iv piggyback 2 g in D5W (iso-osmotic) 100 mL (ANCEF) Problem List: HTN (hypertension) [I10] Asymptomatic PVCs [I49.3] Malignant neoplasm of upper-outer quadrant of right female breast (HCC) [C50.411] Allergies: Oxycodone-Acetaminophen Tape [Adhesive Tape-Silicones] Date Verified: 06/08/20 Lab Values No results within the last 30 days for the following basenames: K,HCT Progress Notes ([facility]): Estuardo Chaudhari 05/31/2020 3:48 PM Signed 06-08-2020 Port placement Progress Notes ([facility]): Raymond Byrne LPN 05/31/2020 3:04 PM Signed REVIEW OF SYSTEMS: General: The patient denies fatigue, denies weight loss, denies weight gain, denies feeling hot, and denies feelings of cold. Eyes: The patient denies glaucoma, NOTES eye injury/surgery, does not wear glasses or contacts. Ear/Nose/Throat: The patient denies allergies, denies hayfever, denies ear infections, and denies bloody noses. Cardiovascular: The patient denies chest pain, denies heart disease, denies high blood pressure, denies high cholesterol, and denies poor circulation. Respiratory: The patient denies tuberculosis, denies pneumonia, denies frequent cough, denies shortness of breath, and denies coughing up blood. Gastrointestinal: The patient denies difficulty swallowing, denies acid reflux, denies ulcers, denies jaundice/hepatitis, denies gallbladder problems, denies vomiting, denies black or tarry stools, denies hemorrhoids, denies bleeding from rectum, denies diverticulitis, denies constipation, denies diarrhea, denies loss of stool control, and denies hernias. Kidney/Bladder: The patient denies kidney stones, denies urine infections, and denies bloody urine. Skin: The patient denies a history of skin cancer, denies bleeding/changing moles, and NOTES a history of skin rash. Neurologic: The patient denies a history of epilepsy/convulsions, denies headaches, denies head/spinal injuries, and denies stroke/TIA. Psychiatric: The patient denies psychiatric medications, denies depression, and denies voices. Endocrine: The patient denies thyroid disorders, denies diabetes, and denies hormonal problems. Hematologic: The patient denies a history of bruising, denies bleeding, and denies anemia. Infections: The patient NOTES a history of measles and mumps, denies rheumatic fever, and denies sexually transmitted diseases. Musculoskeletal: The patient denies back pain/injury, denies back problems, denies sciatica, denies knee/foot trouble, NOTES arthritis, or denies gout Jose Haro MD 05/31/2020 6:40 PM Signed HISTORY AND PHYSICAL Bo Monteiro 1955 REFERRING PHYSICIAN: CHIEF COMPLAINT: HPI: The patient is a 64 year old female with a diagnosis of right breast cancer. Bo is currently scheduled to undergo chemotherapy and needs vascular access for treatment. The patient denies a prior history of central venous access. The patient is left hand dominant. PAST MEDICAL HISTORY Diagnosis Date - Arthritis - Breast cancer (HCC) 04/07/2020 - Ectopic fetus tube removed - Hypertension - Irregular heart beat PAST SURGICAL HISTORY Procedure Laterality Date - BREAST BIOPSY Right 04/05/2020 - BREAST LUMPECTOMY HX Right 04/22/2020 - SECTION HX x 3 - EXCISION OF CYST 1995 Right breast Current Outpatient Medications Medication Sig Dispense Refill - amLODIPine (NORVASC) 5 mg tablet Take 1 tablet by mouth once daily. (Patient taking differently: Take 2.5 mg by mouth once daily. ) 30 tablet 1 - calcium carbonate/vitamin D3 (CALCIUM 600 + D ORAL) Take 1 tablet by mouth once daily. - aspirin 81 mg chewable tablet aspirin 81 mg chewable tablet No current facility-administered medications for this visit. ALLERGIES: Oxycodone-Acetaminophen and Tape [Adhesive Tape-Silicones] PERSONAL HISTORY: Social History Tobacco Use - Smoking status: Former Smoker Years: 1.00 Types: Cigarettes - Smokeless tobacco: Never Used - Tobacco comment: Pt smoked one pack weekly x 1 year. Substance Use Topics - Alcohol use: Yes Alcohol/week: 12.0 standard drinks Types: 5 Glasses of Wine (5oz), 7 Glasses of wine per week Frequency: 2-3 times a week Drinks per session: 3 or 4 - Drug use: No FAMILY HISTORY: FAMILY HISTORY Problem Relation Age of Onset - Hypertension Mother - Stroke Mother - Hypertension Maternal Grandmother - Stroke Maternal Grandmother - Emphysema Father - other (Lung Cancer) Father - Prostate Cancer Brother REVIEW OF SYSTEMS: General: The patient denies fatigue, denies weight loss, denies weight gain, denies feeling hot, and denies feelings of cold. Eyes: The patient denies glaucoma, NOTES eye injury/surgery, does not wear glasses or contacts. Ear/Nose/Throat: The patient denies allergies, denies hayfever, denies ear infections, and denies bloody noses. Cardiovascular: The patient denies chest pain, denies heart disease, denies high blood pressure, denies high cholesterol, and denies poor circulation. Respiratory: The patient denies tuberculosis, denies pneumonia, denies frequent cough, denies shortness of breath, and denies coughing up blood. Gastrointestinal: The patient denies difficulty swallowing, denies acid reflux, denies ulcers, denies jaundice/hepatitis, denies gallbladder problems, denies vomiting, denies black or tarry stools, denies hemorrhoids, denies bleeding from rectum, denies diverticulitis, denies constipation, denies diarrhea, denies loss of stool control, and denies hernias. Kidney/Bladder: The patient denies kidney stones, denies urine infections, and denies bloody urine. Skin: The patient denies a history of skin cancer, denies bleeding/changing moles, and NOTES a history of skin rash. Neurologic: The patient denies a history of epilepsy/convulsions, denies headaches, denies head/spinal injuries, and denies stroke/TIA. Psychiatric: The patient denies psychiatric medications, denies depression, and denies voices. Endocrine: The patient denies thyroid disorders, denies diabetes, and denies hormonal problems. Hematologic: The patient denies a history of bruising, denies bleeding, and denies anemia. Infections: The patient NOTES a history of measles and mumps, denies rheumatic fever, and denies sexually transmitted diseases. Musculoskeletal: The patient denies back pain/injury, denies back problems, denies sciatica, denies knee/foot trouble, NOTES arthritis, or denies gout PHYSICAL EXAMINATION: General: The patient is 64 year old female, well nourished, well hydrated in no acute distress. The patient is oriented to time, place, and person. VITALS: Pulse 101, temperature 36.7 ?C (98.1 ?F), weight 81.2 kg (179 lb), SpO2 97 %. Body mass index is 31.96 kg/m?. HEENT: Normal cephalic, ataumatic, pupils are equally round, sclera are anicteric, mucous membranes are moist, oropharynx is clear. Neck has no masses, asymmetry or lymphadenopathy. Thyroid is unremarkable. Respiratory: Clear to auscultation and percussion. Normal respiratory excursion and pattern. Cardiac: Examination is regular rate and rhythm. Abdominal exam: Soft, nontender, with no palpable masses. No hepatosplenomegaly. No palpable hernias. Rectal exam: exam deferred Extremities: no clubbing, cyanosis or edema. No adenopathy. Other: LABORATORY VALUES: As Noted RADIOLOGIC STUDIES: As Noted Assessment IMPRESSION: Right breast cancer, need for IV access PLAN: I plan to perform a left sided port a cath placement. The planned surgical procedure was discussed extensively with the patient. The risks, benefits, anticipated outcomes and possible complications were mentioned. My staff has also explained the procedure in understandable terms and the patient was given the option to take printed material concerning the planned procedure. The patient had the opportunity to ask questions concerning the planned procedure. The patient freely consents to the planned procedure. Planned Procedure: left Subclavian portacath - [id number] and Fluoroscopic for vascular access - [id number] Patient Weight Last 1 Encounter Wt Readings: Date: Wt: 05/31/2020 81.2 kg (179 lb) Antibiotic: Ancef 2gm IVPB research and evaluation analyst to OR Planned Anesthetic: MAC with local I ??? plan to access the port at the time of surgery. The patient was offered a surgery/procedure at a [facility] facility. The surgeon/proceduralist and patient have discussed in detail the risk of exposure to and/or potential harm posed by the COVID-19 virus with having a surgery/procedure at this time versus the risk of delaying the surgery/procedure. It is not possible to know either the risk of delaying the surgery or procedure or chance of getting an infection with perfect accuracy, but a joint decision was made between the patient and the surgeon/proceduralist to proceed at this time with the scheduled surgery/procedure as indicated on the consent form. Diagnoses: (Z85.3) History of right breast cancer (primary encounter diagnosis) __ Jose Haro MD [facility] ALLIED HEALTHon 04-22-2020 ALLIED HEALTH HNO ID: [id number] Author: Basim HendricksonCt) GAVI Archer Service: Nuclear Medicine Author Type: Clinical Market Development Director Type: Allied Health Filed: 04/22/2020 11:06 AM Note Text: RADIOLOGY SERVICE PROGRESS NOTE SERVICE DATE: 04/22/2020 SERVICE TIME: 11:05 AM PATIENT IDENTITY VERIFICATION COMPLETED USING TWO (2) STANDARD IDENTIFIERS: Name and Date of confirmed by patient verbally and Name and Date of confirmed by identification band FALL SCREENING: Has the patient had 2 falls in the last year or 1 fall with injury or currently using an Ambulatory Assistive Device (Walker, Cane, Wheelchair, Crutches, etc.)? Inpatient: Screened on floor PATIENT GENDER DATA: .female : No ALLERGIES: Reviewed and unchanged MEDICATIONS REVIEWED: Not applicable PATIENT RELEVANT IMPLANT DATA REVIEWED: Not Applicable CREATININE: Creatinine Date Value Ref Range Status 03/21/2018 0.86 0.58 - 0.96 mg/dL Final 03/20/2018 0.87 0.58 - 0.96 mg/dL Final 03/19/2018 0.88 0.58 - 0.96 mg/dL Final eGFR-All Other Races Date Value Ref Range Status 03/21/2018 >60 . Final Comment: eGFR (Estimated GFR) Units of measure: mL/min/1.73 meters squared eGFR is derived from the reexpressed MDRD Study equation using the following parameters: serum creatinine, age, gender and race. The creatinine assay has been calibrated to be traceable to IDMS. An eGFR <60 mL/min/1.73m2 for >3 months is consistent with chronic kidney disease. Refer to KDOQI guidelines for clinical interpretation. In patients with unstable renal function, e.g. those with acute kidney injury, the eGFR may not accurately reflect actual GFR. eGFR- Date Value Ref Range Status 03/21/2018 >60 Final P.O.C.T. RESULTS: N/A April 22, [address] PERFORMED: No IV SITE: NM only - not applicable, oral or physician administered agents given to patient POST EXAM PIV STATUS: Not applicable PROCEDURE TYPE: NM INJECT: RT BREAST SENTINEL NODE INJ. 524 microcuries Tc99m SULFUR COLLOID . No other medications given.. ADMINISTRATION TIME: 09:42 PATIENT DISCHARGED TO: Patient taken to IP transport area for return to RNF/ICU/ED. A Diagnostic radioactive procedure has taken place, with no further precautions necessary other than routine body substance precautions. More information regarding radiation safety can be found using this link: [email or web address] SIGNATURE: GAVI Avila PATIENT NAME: Bo Monteiro DATE: April 22, 2020 TIME: 11:05 AM PAGER/CONTACT #: [facility] ANES POSTPROC EVALon 020 ANES POSTPROC EVAL HNO ID: [id number] Author: Raymond Rocha Service: ? Author Type: Anesthesiologist Type: Anesthesia Postprocedure Evaluation Filed: 04/22/2020 4:20 PM Note Text: POST ANESTHESIA EVALUATION NOTE : 1955 Procedure Summary Date: 04/22/20 Room / Location: HI OR / HI OR Anesthesia Start: 1242 Anesthesia Stop: 1419 Procedures: LUMPECTOMY BREAST (Right Breast) BIOPSY NODE SENTINEL AXILLARY (Right Breast) PLACEMENT OF BREAST LOCALIZATION DEVICE(S) PERCUTANEOUS; FIRST LESION, MAMMOGRAPHIC GUIDANCE (Right ) Diagnosis: Malignant neoplasm of upper-outer quadrant of right female breast, unspecified estrogen receptor status (HCC) Surgeons: Jose Haro Responsible Provider: Raymond Rocha Anesthesia Type: general ASA Status: 3 Anesthesia Type: general Last vitals Vitals Value Taken Time BP 131/67 04/22/20 1515 Temp 36.5 ?C (97.7 ?F) 04/22/20 1515 Pulse 76 04/22/20 1530 Resp 11 04/22/20 1530 SpO2 92 % 04/22/20 1530 Post Anesthesia Patient Status Patient Evaluation: PACU. PACU/ICU Patient Condition: stable. Anticipated Disposition: phase 2 then home. Neurological Status: aware and responsive. Pulmonary Status: breathing comfortably on room air Airway Control: returned to baseline unsupported. Cardiovascular Status: stable. Pain Management: clinically adequate - multimodal analgesia pain management approach Postoperative Hydration: acceptable. Intraoperative Events: no significant anesthesia events Post Operative Nausea/Vomiting Status: Anesthetic Observations: no significant anesthetic observations Recommendation: continue current plan of care. SIGNATURE: Raymond Rocha MD PATIENT NAME: Bo Monteiro DATE: April 22, 2020 TIME: 4:20 PM CSN: [id number] [facility] ANES PRE-OPon 04-22-2020 ANES PRE-OP HNO ID: [id number] Author: Raymond Rocha Service: ? Author Type: Anesthesiologist Type: Anesthesia Preprocedure Evaluation Filed: 04/22/2020 12:18 PM Note Text: ANESTHESIOLOGY DAY OF SURGERY NOTE : 1955 Procedure(s) (LRB): LUMPECTOMY BREAST (Right) BIOPSY NODE SENTINEL AXILLARY (Right) PLACEMENT OF BREAST LOCALIZATION DEVICE(S) PERCUTANEOUS; FIRST LESION, MAMMOGRAPHIC GUIDANCE (Right) Surgeon(s): Jose Haro Estimated body mass index is 32.59 kg/m? as calculated from the following: Height as of this encounter: 160 cm (5' 3). Weight as of this encounter: 83.5 kg (184 lb). Most recent hematocrit and potassium results: Hematocrit 45.1 03/21/2018 Potassium 3.9 03/21/2018 Relevant Problems CARDIO (+) Asymptomatic PVCs (+) HTN (hypertension) I - PHYSICAL EVALUATION AIRWAY Patient intubated: No. Mallampati: II. TM distance: >3 FB. Neck ROM: full ROM without neurological symptoms. Mouth opening: adequate. Short neck: no. Thick neck: no DENTAL Dental findings: teeth intact. Additional exam findings: no II - ANESTHESIA PLAN ASA Score: 3 Anesthetic Plan: general Airway type: LMA NPO Status: adequate Monitoring plan: Standard ASA. Postoperative analgesic plan: parenteral or oral opioids and multimodal analgesia. Anesthetic Risks, Benefits, Alternatives, Personnel Discussed. Consent obtained from: patient. Patient / Surrogate agrees to blood products: yes DNR status not reviewed with patient and/or family prior to surgery. Significant changes in the patient condition since the History and Physical, not otherwise documented in primary service progress note: no. Potential Anesthesia issues that may suggest increased risk of complications or contraindication to planned procedure: none. Vitals Value Taken Time BP 141/86 04/22/20 08 Pulse 80 04/22/20 08 Resp 16 04/22/20800 Temp 36.2 ?C (97.2 ?F) 04/22/20800 SpO2 99 % 04/22/20800 Facility-Administered Medications as of 04/22/2020 Medication Dose Route Frequency - lactated ringers infusion 30 mL/hr INTRAVENOUS CONTINUOUS - ceFAZolin iv piggyback 2 g in D5W (iso-osmotic) 100 mL (ANCEF) 2 g INTRAVENOUS Pre-Op Once - [COMPLETED] lidocaine 20 mg/mL (2 %) injection (XYLOCAINE) SUBCUTANEOUS PRN Outpatient Medications as of 04/22/2020 Medication Sig - amLODIPine (NORVASC) 5 mg tablet Take 1 tablet by mouth once daily. - calcium carbonate/vitamin D3 (CALCIUM 600 + D ORAL) Take by mouth. - aspirin 81 mg chewable tablet aspirin 81 mg chewable tablet I have interviewed and examined the patient. I have reviewed the medical record and/or the pre-anesthesia evaluation, pertinent labs, and test results. This contains updated information obtained within 48 hours of Surgery/Procedure. SIGNATURE: Raymond Rocha MD PATIENT NAME: Bo Monteiro DATE: April 22, 2020 TIME: 12:18 PM CSN: [id number] [facility] BRIEF OP NOTon 04-22-2020 BRIEF OP NOT HNO ID: [id number] Author: Jose Haro Service: General Surgery Author Type: Physician Type: Brief Op Note Filed: 04/22/2020 2:31 PM Note Text: BRIEF OPERATIVE NOTATION FOR SURGICAL PROCEDURE. Bo Monteiro 1955 [id number] female LOG ID: [id number] Surgery/Procedure Date: 04/22/2020 Incision/Procedure Start Time: 1:13 PM Incision Close/Procedure End Time: 2:09 PM Surgeon(s)/Proceduralist(s) and Refrigeration Houseman(s): Surgeon(s) and Role: * Jose Haro - Primary Registered Nurse Fiscal Assistant: Marisabel (Rn) BERNABE Cantrell REFERRING PHYSICIAN: Outpatient DEPT: [facility] PROVIDER: Flor POS: [id number] ANESTHESIA: General ASA CLASS: 3 - Severe DIAGNOSIS: right upper inner breast cancer PROCEDURE: right preoperative stereotactic guided needle placement - LUMPECTOMY, WITH SENTINEL LYMPH NODE BIOPSY, Radiotracter identification - [id number], [id number], [id number], [id number], [id number] IVF: 800 EBL: 25 Specimens: right axillary SLNBx, Right lumpectomy ADDITIONAL DIAGNOSES: FINDINGS: good radiographic margins COMPLICATIONS: None PMHx - PAST MEDICAL HISTORY Diagnosis Date - Arthritis - Breast cancer (HCC) 04/07/2020 - Ectopic fetus tube removed - Irregular heart beat COMORBIDITIES - None Post Op Occurrences - None Wound Classification - Clean Operative note dictated in the dictation system. - [id number] Jose Haro MD [facility] HISTORY PHYSICALon 0 HISTORY PHYSICAL HNO ID: [id number] Author: Jose Haro Service: General Surgery Author Type: Physician Type: HANDP Filed: 04/22/2020 12:24 PM Note Text: HISTORY AND PHYSICAL - BREAST CANCER ? Bo Monteiro 1955 April 11, 2020 ? ? REFERRING PHYSICIAN: Marisabel Cummings MD ? 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 HPI: Bo is a 64-year-old female with no family history of breast cancer. The patient had her previous mammogram proximally 2 years prior with no specific abnormalities. The patient is performing self breast exam when she noticed a mass on the inner right breast just superior medial to the nipple. ? The patient was referred for mammogram and ultrasound. She underwent diagnostic mammogram with right ultrasound of the breast on April 04, 2020 which demonstrated: ? IMPRESSION: INCOMPLETE: NEEDS ADDITIONAL IMAGING EVALUATION The new mass in the right breast is indeterminate. ?An ultrasound is recommended. ? LIMITED ULTRASOUND OF RIGHT BREAST AND AXILLA: 04/04/2020 RESULT: Comparison is made to exams dated: ?10/11/2017 mammogram and 10/24/2017 mammogram. Color flow and real-time ultrasound of the right breast 1 o'clock, and axilla regions were performed. ?Malave scale images of the real-time examination were reviewed. There is 1.6 cm x 1.4 cm x 1.6 cm irregular mass in the right breast at 1 o'clock 2 cm from the nipple. ?This irregular mass is hypoechoic. ?This correlates as palpated and with mammography findings. ?Color flow imaging demonstrates that there is no increase in vascularity. ? Normal appearing lymph nodes are seen in the right axilla. IMPRESSION: HIGHLY SUGGESTIVE OF MALIGNANCY - APPROPRIATE ACTION SHOULD BE TAKEN The 1.6 cm x 1.4 cm x 1.6 cm irregular mass in the right breast is highly suggestive of malignancy. ?An ultrasound guided biopsy is recommended. ? ? The patient went ultrasound-guided core biopsy on April 05, 2020 with follow-up diagnostic right mammogram demonstrating good positioning of the postbiopsy clip. Pathology demonstrated: ? FINAL DIAGNOSIS Right breast, 1 o'clock 2 cm FN, mass, ultrasound-guided needle core biopsy with ribbon clip placement: - Invasive ductal carcinoma, provisional Paige grade 3. ? RESULTS Estrogen Receptor (ER) ? ?Positive (>95%) ? ?Average stain intensity: ?strong ? ?Status of internal controls: ?Internal control cells absent ? ?External controls: ?Appropriately reactive Progesterone Receptor (PgR) ? ?Positive (90%) ? ?Average stain intensity: ?moderate to strong ? ?Status of internal controls: Internal control cells absent ? ?External controls: Appropriately reactive HER2 (ERBB2) IMMUNOHISTOCHEMISTRY ASSAY Interpretation: POSITIVE for HER2 (ERBB2) Expression Score: 3+ Percentage of cells with uniform intense complete membrane staining: ?75% (reported for 2+ and 3+ scores only) ? The patient was referred with a given diagnosis of invasive ductal carcinoma for discussion concerning her diagnosis and treatment planning. ? ? The patient is being seen by me today at the request of Loan Dias NP for my opinion and advice regarding right breast invasive adenocarcinoma. ? PAST MEDICAL HISTORY PAST MEDICAL HISTORY Diagnosis Date - Arthritis ? - Breast cancer (HCC) 04/07/2020 - Ectopic fetus ? ? tube removed - Irregular heart beat ? ? ? PAST SURGICAL HISTORY PAST SURGICAL HISTORY Procedure Laterality Date - SECTION HX ? ? ? x 3 - EXCISION OF CYST Right 1994 ? ? ? CURRENT MEDICATIONS Current Outpatient Medications Medication Sig Dispense Refill - amLODIPine (NORVASC) 5 mg tablet Take 1 tablet by mouth once daily. 30 tablet 1 - calcium carbonate/vitamin D3 (CALCIUM 600 + D ORAL) Take by mouth. ? ? - aspirin 81 mg chewable tablet aspirin 81 mg chewable tablet ? ? - prednisoLONE acetate (PRED FORTE, ECONOPRED PLUS) 1 % ophthalmic suspension Use 1 Drop in the left eye four times daily. For one week following surgery then taper as directed 1 Bottle 0 - moxifloxacin (VIGAMOX) 0.5 % ophthalmic solution Use 1 Drop in the right eye four times daily. For one week following surgery beginning the day before 1 Bottle 1 - prednisoLONE acetate (PRED FORTE, ECONOPRED PLUS) 1 % ophthalmic suspension Use 1 Drop in the right eye four times daily. For one week following surgery then taper as directed 1 Bottle 1 - ketorolac (ACULAR) 0.5 % ophthalmic solution Use 1 Drop in the right eye four times daily. For one week following surgery 1 Bottle 1 - meclizine (ANTIVERT) 25 mg tab Take 2 tablets by mouth twice daily. 30 tablet 0 - HYDROcodone-acetaminophen (NORCO) 5-325 mg per tablet Take 1 tablet by mouth every 6 hours as needed. 12 tablet 0 ? No current facility-administered medications for this visit. ? ? ALLERGIES: Tape [Adhesive Tape-Silicones] ? PERSONAL HISTORY: SOCIAL HISTORY Social History ? Tobacco Use - Smoking status: Former Smoker ? ? Types: Cigarettes - Smokeless tobacco: Never Used Substance Use Topics - Alcohol use: Yes ? ? Alcohol/week: 7.0 standard drinks ? ? Types: 7 Glasses of wine per week - Drug use: No ? FAMILY HISTORY: FAMILY HISTORY FAMILY HISTORY Problem Relation Age of Onset - Hypertension Mother ? - Stroke Mother ? - Hypertension Maternal Grandmother ? - Stroke Maternal Grandmother ? REVIEW OF SYSTEMS: General: The patient denies fatigue, denies weight loss, denies weight gain, denies feeling hot, and denies feelings of cold. Eyes: The patient denies glaucoma, NOTES eye injury/surgery, does not wear glasses or contacts. Ear/Nose/Throat: The patient denies allergies, denies hayfever, denies ear infections, and denies bloody noses. Cardiovascular: The patient denies chest pain, denies heart disease, denies high blood pressure, denies high cholesterol, and denies poor circulation. Respiratory: The patient denies tuberculosis, denies pneumonia, denies frequent cough, denies shortness of breath, and denies coughing up blood. Gastrointestinal: The patient denies difficulty swallowing, denies acid reflux, denies ulcers, denies jaundice/hepatitis, denies gallbladder problems, denies vomiting, denies black or tarry stools, denies hemorrhoids, denies bleeding from rectum, denies diverticulitis, denies constipation, denies diarrhea, denies loss of stool control, and denies hernias. Kidney/Bladder: The patient denies kidney stones, denies urine infections, and denies bloody urine. Skin: The patient denies a history of skin cancer, denies bleeding/changing moles, and NOTES a history of skin rash. Neurologic: The patient denies a history of epilepsy/convulsions, denies headaches, denies head/spinal injuries, and denies stroke/TIA. Psychiatric: The patient denies psychiatric medications, denies depression, and denies voices. Endocrine: The patient denies thyroid disorders, denies diabetes, and denies hormonal problems. Hematologic: The patient denies a history of bruising, denies bleeding, and denies anemia. Infections: The patient NOTES a history of measles and mumps, denies rheumatic fever, and denies sexually transmitted diseases. Musculoskeletal: The patient denies back pain/injury, denies back problems, denies sciatica, denies knee/foot trouble, NOTES arthritis, or denies gout PHYSICAL EXAMINATION: ? General: The patient is 64 year old female, well nourished, well hydrated in no acute distress. The patient is oriented to time, place, and person. ? VITALS: Blood pressure 136/85, pulse 97, height 160 cm (5' 3), weight 81.2 kg (179 lb). Body mass index is 31.71 kg/m?. ? HEENT: Normal cephalic, ataumatic, pupils are equally round, sclera are anicteric, mucous membranes are moist, oropharynx is clear. Neck has no masses, asymmetry or lymphadenopathy. Thyroid is unremarkable. ? Respiratory: Clear to auscultation and percussion. Normal respiratory excursion and pattern. ? Cardiac: Examination is regular rate and rhythm. ? Abdominal exam: Soft, nontender, with no palpable masses. No hepatosplenomegaly. No palpable hernias. ? Rectal exam: exam deferred Extremities: no clubbing, cyanosis or edema. No adenopathy. ? Breast: Visual inspection reveals no retractions, nipple inversion, or skin changes. Palpation of the right breast reveals the mass of concern at the 2 oclock position. The mass is partially to send reason size firm and irregular.. Palpation of the left breast reveals no dominant or suspicious masses, but multiple benign-feeling nodules. Axillary exam demonstrates no suspicious masses in either the left or right axilla. There is no nipple discharge expressed from either the left or right breast. ? LABORATORY VALUES: As Noted ? RADIOLOGIC STUDIES: As Noted ? Assessment IMPRESSION: BREAST CANCER - RIGHT - INVASIVE DUCTAL CARCINOMA ? PLAN: I plan to perform a right side needle localization biopsy/lumpectomy with sentinel lymph node biopsy with possible axillary dissection. The planned surgical procedure was discussed extensively with the patient. The risks, benefits, anticipated outcomes and possible complications and alternatives were discussed. My staff has also explained the procedure in understandable terms and the patient was given the option to take printed material concerning the planned procedure. The patient had the opportunity to ask questions concerning the planned procedure. The patient freely consents to the planned procedure. ? The patient was offered a surgery/procedure at a [facility]. The surgeon/proceduralist and patient have discussed in detail the risk of exposure to and/or potential harm posed by the COVID-19 virus with having a surgery/procedure at this time versus the risk of? delaying the surgery/procedure. It is not possible to know either the risk of delaying the surgery or procedure or chance of getting an infection with perfect accuracy, but a joint decision was made between the patient and the surgeon/proceduralist ?to proceed at this time with the scheduled surgery/procedure as indicated on the consent form. ? Anticipated Surgical Procedure/ CPT Code: right preoperative stereotactic guided needle placement - 15294 LUMPECTOMY, WITH SENTINEL LYMPH NODE BIOPSY, Radiotracter identification - [id number], [id number], [id number], [id number], [id number] ? Anticipated Anesthetic: General ? Patient weight: Blood pressure 136/85, pulse 97, height 160 cm (5' 3), weight 81.2 kg (179 lb). BMI: Body mass index is 31.71 kg/m?. ? Planned antibiotic: Ancef 2gm IVPB research and evaluation analyst to OR ? SCDs needed - Yes ? Refrigeration Houseman Needed - Yes ? Diagnoses: (C50.411) Malignant neoplasm of upper-outer quadrant of right female breast, unspecified estrogen receptor status (HCC) (primary encounter diagnosis) ? ? Return to Clinic: The patient is instructed to follow-up with me 1 week post operatively. ? __ Jose Haro MD [facility] DIAGNOSTIC RTon 04-22-20 20 [facility] DIAGNOSTIC RT * * *Final Report* * * DATE OF EXAM: Apr 22 2020 11:26AM [facility] [id number] - [facility] HOSPITAL DIAGNOSTIC RT / PROCEDURE REASON: s/p needle localization * * * * Physician Interpretation * * * * #[id number] - [facility] DIAGNOSTIC RT #[id number] - [facility] SURGICAL BREAST SPECIMEN RT UNILATERAL RIGHT DIGITAL DIAGNOSTIC MAMMOGRAM WITH CAD: 04/22/2020 HISTORY: S/P Needle Localization S/P Lumpectomy. RESULT: TECHNIQUE: The study was acquired using full field digital technology and interpreted from soft copy. Current study was also evaluated with a Computer Aided Detection (CAD). Comparison is made to exams dated: 04/05/2020 mammogram, [facility], 10/24/2017 mammogram, and 10/11/2017 mammogram. There are scattered fibroglandular elements in right breast. Mass and biopsy marker is seen in a mass in the medial right breast inferior to the level of the nipple line. Wire extends through the mass. IMPRESSION: POST PROCEDURE MAMMOGRAM FOR MARKER PLACEMENT Wire localization of a mass in the right breast. SPECIMEN: 04/22/2020 Correlation is made to exams dated: 04/05/2020 mammogram, 04/04/2020 mammogram - [facility], 10/24/2017 mammogram, and 10/11/2017 mammogram. RIGHT BREAST SPECIMEN RADIOGRAPH: Indication: Biopsy-proven carcinoma Result: A specimen submitted for radiography includes the mass noted on the preoperative imaging. IMPRESSION: SPECIMEN IMPRESSION: BIRADS 6 - Known malignancy. Completed excisional breast biopsy. Recommendation: Correlation with pathology result from biopsy specimen. Cindy villalobos/penrad:04/22/2020 16:35:05 Quill Picking Machine Operator(s): RT Yunior(R)(M), [facility] Mammogram BI-RADS: Post-procedure mammogram for marker placement Multiple national specialty organizations have released breast cancer screening guidelines for women at average risk for developing breast cancer - guidelines that are based on both evidence and opinion, yet differ on when to start and how often to screen for breast cancer. With representation from Breast Imaging, Internal Medicine, Women's Health, Family Medicine, and Medical/Surgical Oncology, the [facility] has carefully reviewed the data and reached the following consensus: 1) All women should engage in shared decision-making with their providers to decide when to start and how often to screen; 2) All women should have the opportunity to start screening mammography at age 40; 3) For women ages 45-55, we recommend annual screening mammograms; 4) For women ages 55 and over, we support both the transition from an annual to a biennial interval if this aligns more with patient's values and preferences, or continuation with annual screening; 5) All women should discuss with their providers when to stop screening mammograms. Glass Melt Operator: Charlene Transcribe Date/Time: Apr 22 2020 11:21A Dictated by : CINDY LONDONO MD This examination was interpreted and the report reviewed and electronically signed by: CINDY LONDONO MD on Apr 22 2020 4:35PM EST [id number] Normal [facility] SURGICAL BREAST SPECIMEN RTon 04-22-2020 [facility] SURGICAL BREAST SPECIMEN RT * * *Final Report* * * DATE OF EXAM: Apr 22 2020 1:56PM CHRIS 0639 - [facility] SURGICAL BREAST SPECIMEN RT / PROCEDURE REASON: s/p lumpectomy * * * * Physician Interpretation * * * * #[id number] - [facility] DIAGNOSTIC RT #[id number] - [facility] SURGICAL BREAST SPECIMEN RT UNILATERAL RIGHT DIGITAL DIAGNOSTIC MAMMOGRAM WITH CAD: 04/22/2020 HISTORY: S/P Needle Localization S/P Lumpectomy. RESULT: TECHNIQUE: The study was acquired using full field digital technology and interpreted from soft copy. Current study was also evaluated with a Computer Aided Detection (CAD). Comparison is made to exams dated: 04/05/2020 mammogram, 04/04/2020 mammogram - [facility], 10/24/2017 mammogram, and 10/11/2017 mammogram. There are scattered fibroglandular elements in right breast. Mass and biopsy marker is seen in a mass in the medial right breast inferior to the level of the nipple line. Wire extends through the mass. IMPRESSION: POST PROCEDURE MAMMOGRAM FOR MARKER PLACEMENT Wire localization of a mass in the right breast. SPECIMEN: 04/22/2020 Correlation is made to exams dated: 04/05/2020 mammogram, 04/04/2020 mammogram - [facility], 10/24/2017 mammogram, and 10/11/2017 mammogram. RIGHT BREAST SPECIMEN RADIOGRAPH: Indication: Biopsy-proven carcinoma Result: A specimen submitted for radiography includes the mass noted on the preoperative imaging. IMPRESSION: SPECIMEN IMPRESSION: BIRADS 6 - Known malignancy. Completed excisional breast biopsy. Recommendation: Correlation with pathology result from biopsy specimen. Cindy villalobos/charlene:04/22/2020 16:35:05 Quill Picking Machine Operator(s): RT Yunior(R)(M), [facility] Mammogram BI-RADS: Post-procedure mammogram for marker placement Multiple national specialty organizations have released breast cancer screening guidelines for women at average risk for developing breast cancer - guidelines that are based on both evidence and opinion, yet differ on when to start and how often to screen for breast cancer. With representation from Breast Imaging, Internal Medicine, Women's Health, Family Medicine, and Medical/Surgical Oncology, the [facility] has carefully reviewed the data and reached the following consensus: 1) All women should engage in shared decision-making with their providers to decide when to start and how often to screen; 2) All women should have the opportunity to start screening mammography at age 40; 3) For women ages 45-55, we recommend annual screening mammograms; 4) For women ages 55 and over, we support both the transition from an annual to a biennial interval if this aligns more with patient's values and preferences, or continuation with annual screening; 5) All women should discuss with their providers when to stop screening mammograms. Glass Melt Operator: Charlene Transcribe Date/Time: Apr 22 2020 11:21A Dictated by : CINDY LONDONO MD This examination was interpreted and the report reviewed and electronically signed by: CINDY LONDONO MD on Apr 22 2020 4:35PM EST [id number] [facility] US LOC BREAST RTon 04-22 [facility] US LOC BREAST RT * * *Final Report* * * DATE OF EXAM: Apr 22 2020 11:31AM TONI 0600 - [facility] US LOC BREAST RT / PROCEDURE REASON: RT BREAST LESION * * * * Physician Interpretation * * * * TECHNIQUE: [facility] US LOC BREAST RT COMPARISON: Mammogram from 04/05/2020 CLINICAL INDICATION: RT BREAST LESION PROCEDURE NOTE: After written informed consent for the procedure was obtained, the patient was placed in a supine position and the procedure site was localized with ultrasound. Timeout was then performed. After appropriate cleaning and draping, local lidocaine anesthesia was administered, and using ultrasound guidance needle localization was performed. A wire was placed just through a right breast mass at the 1:00 position approximately 2 cm from the nipple. A biopsy marker is seen just inferior to the wire. There are no immediate complications from the procedure. Patient tolerated the procedure well. On secondary review of the biopsy specimen, the marker is seen overlying the needle localization wire and is present in the post lumpectomy specimen. IMPRESSION: 1. Localization of a mass in the right breast. Glass Melt Operator: PSCB Transcribe Date/Time: Apr 22 2020 4:35P Dictated by : CINDY LONDONO MD This examination was interpreted and the report reviewed and electronically signed by: CINDY LONDONO MD on Apr 22 2020 4:42PM EST [id number] [facility] NM LYMPH NODE IMAGINGon Lymphocytes (Bld) [#/Vol] * * *Final Report* * * DATE OF EXAM: Apr 22 2020 10:30AM SIMON 0033 - [place] LYMPH NODE IMAGING / PROCEDURE REASON: C50.411-Malignant neoplasm of upper-outer quadrant of right female breast, unspe * * * * Physician Interpretation * * * * BREAST LYMPHOSCINTIGRAPHY CLINICAL HISTORY: breast cancer. TECHNIQUE: Patient was identified using two identifiers. Verification of the side of breast cancer was confirmed with the patient and performed in conjunction with the assisting technologist as well as EPIC documentation. Patient medications and drug allergies were reviewed. 524 microcuries of filtered technetium 99m sulfur colloid with lidocaine was injected by the radiologist in three aliquots around the right breast periareolar region. planar static images of the chest and axillae were obtained in multiple views including anterior, lateral and obliques. RESULT: Discrete foci of radiopharmaceutical accumulation are identified in right axillary region. There are a few bright foci of uptake and some milder foci in the right axillary region. The findings are consistent with sentinel lymph nodes right axillary region. IMPRESSION: SENTINEL LYMPH NODES IDENTIFIED, RIGHT AXILLARY REGION. Glass Melt Operator: PSCB Transcribe Date/Time: Apr 22 2020 11:19A Dictated by : PADMA JIMENEZ MD This examination was interpreted and the report reviewed and electronically signed by: PADMA JIMENEZ MD on Apr 22 2020 11:25AM EST [id number] Normal [facility] OPERATIVE NOon 04-22-2020 OPERATIVE NO HNO ID: [id number] Author: Jose Haro Service: General Surgery Author Type: Physician Type: Operative Report Filed: 04/25/2020 8:36 AM Note Text: [facility] - Operative Report CECILBO : 1955 AGE: 64. SEX: F PATIENT TYPE: A HOSP [facility] [place] [facility] LOCATION: [facility] ATTENDING PHYSICIAN: Jose Haro M.D. CSN NUMBER: [id number] DATE OF SURGERY/PROCEDURE: 04/22/2020 INCISION/PROCEDURE START TIME: 1:13 p.m. INCISION CLOSE/PROCEDURE END TIME: 2:09 p.m. PREOPERATIVE DIAGNOSIS: Right upper outer quadrant breast cancer. POSTOPERATIVE DIAGNOSIS: Successful sentinel lymph node biopsy and good radiographic margins at right upper inner quadrant lumpectomy site. SURGEON: Jose Haro M.D. FUR TRAPPER: KOBY House. SURGERY/PROCEDURE: Right preoperative stereotactic-guided needle placement, lumpectomy with sentinel lymph node biopsy using radiotracer and Lymphazurin Blue for node identification. ANESTHESIA: LMA. LOG ID: [id number]. ANESTHESIOLOGIST: Dr. Raymond Rocha. ASA: 3. INTRAVENOUS FLUIDS: 800 mL. ESTIMATED BLOOD LOSS: 25. URINE OUTPUT: No catheter. FINDINGS: As described above. SPECIMEN: [place] lymph nodes x2 nodes sent and lumpectomy specimen with a single tie suture marking the cranial aspect and a double tail suture marking the lateral aspect. DRAINS: None. COMPLICATIONS: None. The patient was taken to PACU in stable condition. DESCRIPTION OF PROCEDURE: Patient had radiotracer injected in the Nuclear Medicine department at the prescribed time and had ultrasound-guided wire localization with followup CC and true lateral mammograms obtained. Sign-in was performed verifying patient, site, procedure, position, critical nursing information, VTE, and antibiotic prophylaxis. Patient received 2 grams of Ancef, had sequential compression devices placed. The right breast was marked by the wire. The patient was brought back to the operative suite and following induction of LMA anesthesia, the right arm, right axilla, and right breast were prepped and draped in usual fashion. Prior to this, the Neoprobe was used to clear the axilla with the expected site of highest counts noted and 5 mL of 50:50 mixture of Lymphazurin blue and normal saline was injected in the stapes plexus and the breast massaged. Following this, the patient was prepped and draped in usual fashion. Time-out was performed verifying the patient, site, procedure, position. The Neoprobe was again used to clear the axilla and the site of highest count activity was marked and a transverse incision approximately 1.5 cm was made. Dissection was carried down to subcutaneous fat into the clavipectoral fascia. A blue lymphatic was identified. Using the Neoprobe, this was traced up and a clearly blue lymph node was identified. As dissection was continued, the area of about 2 x 2 centimeter of axillary tissue was excised. There was an obvious 2nd lymph node in this area. As the lymph node pack was removed, the blue lymph node counted 2000 counts. The 2nd lymph node counted approximately 500 counts. _ the axilla revealed no other counts greater than 150. At this point, we had good hemostasis. Subcutaneous fat closed with 3-0 Vicryl sutures. Skin was closed with 4-0 Monocryl running subcuticular suture. Next, attention was turned to the breast. Prior to prepping the patient, ultrasound was used to evaluate the location of the tumor wire and the tumor was noted to be at the 3 o'clock position. This was marked for the X and Y axis with the ultrasound probe. Given the location of the tumor, a curvilinear incision was marked down along the edge of the nipple-areolar complex. Local anesthetic injected and a curvilinear incision made. At this point, dissection was carried down. This was floated out superficially approximately 4 mm below the skin margin. Dissection carried out lateral to the marked site and dissection was carried out to where the wire entered the skin. The wire was brought up through the periareolar incision. With the mass being able to be palpated, a sphere of breast tissue was taken out medially, laterally, superiorly, and caudally and dissection was carried down almost to the clavipectoral fascia. The mass was mobile and able to be raised off this area with palpable good margin. Once the specimen was fully removed, the wire entered the specimen at approximately the 4 o'clock position. The single tie suture marked the cranial aspect, the double-J suture marked the lateral aspect. The specimen was oriented on the x-ray plate and sent for specimen radiograph. The cavity was irrigated with sterile water and there was good hemostasis. The margin of the cavity was marked with 4 deep medium clips, 4 superficial small clips. Subcutaneous breast closed with 3-0 Vicryl sutures. Skin was closed with 4-0 Monocryl subcu suture. Specimen radiograph returned as good radiographic margin _ was brought to recovery in stable condition. Marisabel Calvo was my EQUIPMENT INSTALLATION PROFESSIONAL. She assisted in retraction, visualization, identification of structures and to perform subcuticular closure. There were no surgeons or qualified residents available. Jose Haro M.D. RG:[id number] /[id number] Normal [facility] OPERATIVE NO HNO ID: [id number] Author: Jose Haro Service: General Surgery Author Type: Physician Type: Operative Report Filed: 04/26/2020 10:37 AM Note Text: [facility] - Operative Report BO MONTEIRO : 1955 AGE: 64. SEX: F PATIENT TYPE: A HOSP [facility] [place] LOCATION: [facility] ATTENDING PHYSICIAN: Jose Haro M.D. CSN NUMBER: [id number] DATE OF SURGERY/PROCEDURE: 04/22/2020 INCISION/PROCEDURE START TIME: 1:13 p.m. INCISION CLOSE/PROCEDURE END TIME: 2:09 p.m. PREOPERATIVE DIAGNOSIS: Right upper outer quadrant breast cancer. POSTOPERATIVE DIAGNOSIS: Successful sentinel lymph node biopsy and good radiographic margins at right upper inner quadrant lumpectomy site. SURGEON: Jose Haro M.D. FUR TRAPPER: Marisabel Cantrell RN SURGERY/PROCEDURE: Right preoperative stereotactic-guided needle placement, lumpectomy with sentinel lymph node biopsy using radiotracer and Lymphazurin Blue for node identification. ANESTHESIA: LMA. LOG ID: [id number]. ANESTHESIOLOGIST: Dr. Raymond Rocha. ASA: 3. INTRAVENOUS FLUIDS: 800 mL. ESTIMATED BLOOD LOSS: 25. URINE OUTPUT: No catheter. FINDINGS: As described above. SPECIMEN: [place] lymph nodes x2 nodes sent and lumpectomy specimen with a single tie suture marking the cranial aspect and a double tail suture marking the lateral aspect. DRAINS: None. COMPLICATIONS: None. The patient was taken to PACU in stable condition. DESCRIPTION OF PROCEDURE: Patient had radiotracer injected in the Nuclear Medicine department at the prescribed time and had ultrasound-guided wire localization with followup CC and true lateral mammograms obtained. Sign-in was performed verifying patient, site, procedure, position, critical nursing information, VTE, and antibiotic prophylaxis. Patient received 2 grams of Ancef, had sequential compression devices placed. The right breast was marked by the wire. The patient was brought back to the operative suite and following induction of LMA anesthesia, the right arm, right axilla, and right breast were prepped and draped in usual fashion. Prior to this, the Neoprobe was used to clear the axilla with the expected site of highest counts noted and 5 mL of 50:50 mixture of Lymphazurin blue and normal saline was injected in the stapes plexus and the breast massaged. Following this, the patient was prepped and draped in usual fashion. Time-out was performed verifying the patient, site, procedure, position. The Neoprobe was again used to clear the axilla and the site of highest count activity was marked and a transverse incision approximately 1.5 cm was made. Dissection was carried down to subcutaneous fat into the clavipectoral fascia. A blue lymphatic was identified. Using the Neoprobe, this was traced up and a clearly blue lymph node was identified. As dissection was continued, the area of about 2 x 2 centimeter of axillary tissue was excised. There was an obvious 2nd lymph node in this area. As the lymph node pack was removed, the blue lymph node counted 2000 counts. The 2nd lymph node counted approximately 500 counts. Evaluation of the axilla revealed no other counts greater than 150. At this point, we had good hemostasis. Subcutaneous fat closed with 3-0 Vicryl sutures. Skin was closed with 4-0 Monocryl running subcuticular suture. Next, attention was turned to the breast. Prior to prepping the patient, ultrasound was used to evaluate the location of the tumor relative to the wire and the tumor was noted to be at the 3 o'clock position. This was marked for the X and Y axis with the ultrasound probe. Given the location of the tumor, a curvilinear incision was marked down along the edge of the nipple-areolar complex. Local anesthetic injected and a curvilinear incision made. At this point, dissection was carried down. This was floated out superficially approximately 4 mm below the skin margin. Dissection carried out lateral to the marked site and dissection was carried out to where the wire entered the skin. The wire was brought up through the periareolar incision. With the mass being able to be palpated, a sphere of breast tissue was taken out medially, laterally, superiorly, and caudally and dissection was carried down almost to the clavipectoral fascia. The mass was mobile and able to be raised off this area with palpable good margin. Once the specimen was fully removed, the wire entered the specimen at approximately the 4 o'clock position. The single tie suture marked the cranial aspect, the double-J suture marked the lateral aspect. The specimen was oriented on the x-ray plate and sent for specimen radiograph. The cavity was irrigated with sterile water and there was good hemostasis. The margin of the cavity was marked with 4 deep medium clips, 4 superficial small clips. Subcutaneous breast closed with 3-0 Vicryl sutures. Skin was closed with 4-0 Monocryl subcu suture. Specimen radiograph returned as good radiographic margins. The patient was brought to recovery in stable condition. Marisabel Calvo was my EQUIPMENT INSTALLATION PROFESSIONAL. She assisted in retraction, visualization, identification of structures and to perform subcuticular closure. There were no surgeons or qualified residents available. Jose Haro M.D. RG:[id number] revised 04/26/2020 [facility] /[id number] [facility] PT EDon 04-22-2020 PT ED HNO ID: [id number] Author: Jocelyn HendricksonRnNoris Anne RN Service: ? Author Type: Registered Nurse Type: Patient Education Filed: 04/22/2020 3:53 PM Note Text: POST OP LEARNING RESPONSE INSTRUCTION PROVIDED TO: Patient and family member METHOD OF INSTRUCTION: Written instruction - handouts PATIENT / FAMILY RESPONSE: Verbalizes understanding of: POST-OPERATIVE INSTRUCTIONS-Correct actions to take to reduce postoperative complications FOLLOW-UP PLAN: Patient instructed to call with any further issues SUPPLEMENTAL MATERIAL: None REFERRAL (RECOMMENDATION): None Electronically Signed By: Jocelyn Anne RN In Department: [facility] SURGERY [facility] PT ED HNO ID: [id number] Author: Didier HendricksonRnNoris Campa RN Service: Nursing Author Type: Registered Nurse Type: Patient Education Filed: 04/22/2020 8:21 AM Note Text: PRE OP LEARNING ASSESSMENT PROCEDURE/SURGERY: SURGERY: READINESS TO LEARN COGNITIVE ABILITY: Alert and oriented MOTIVATION TO LEARN: Interested FAMILY SUPPORT: High - Very involved in pt care PATIENT LEARNS BEST BY: Verbal Instruction FACTORS AFFECTING LEARNING: None PHYSICAL LIMITATIONS AFFECTING LEARNING: None Electronically Signed By: Didier Campa RN In Department: [facility] SURGERY [facility] PT ED HNO ID: [id number] Author: Randa Rodríguez RN Service: Nursing Author Type: Registered Nurse Type: Patient Education Filed: 04/22/2020 7:40 AM Note Text: PRE OP LEARNING ASSESSMENT PROCEDURE/SURGERY: SURGERY: R breast Lumpectomy READINESS TO LEARN COGNITIVE ABILITY: Alert and oriented MOTIVATION TO LEARN: Interested FAMILY SUPPORT: High - Very involved in pt care PATIENT LEARNS BEST BY: Written Instruction - Hand-outs Verbal Instruction FACTORS AFFECTING LEARNING: None PHYSICAL LIMITATIONS AFFECTING LEARNING: None Electronically Signed By: Randa Buca, RN In Department: [facility] SURGERY Normal [facility] SURGICAL PATHOLOGYon 020 SURGICAL PATHOLOGY Specimen originated from [facility] Specimen #: [id number] Submitting Physician: Jose Haro M.D. FINAL DIAGNOSIS 1. Right axillary lymph node #1-2000 and #2-600, sentinel node biopsies (A) - Three lymph nodes, negative for metastatic malignancy (0/3). 2. Right breast mass, needle-localized lumpectomy (B) - Invasive ductal carcinoma, Paige Grade 3, measuring 1.8 cm in greatest dimension (please see synoptic report). - Ductal carcinoma in-situ, nuclear grade 3, solid type with comedonecrosis, microcalcifications and involvement of lobules. - Biopsy clip and biopsy site changes identified. EDK/rw 04/28/2020 [facility]NOPTIC REPORT OF [place] PATHOLOGIC FINDINGS RIGHT BREAST MASS: BREAST INVASIVE CARCINOMA WORKSHEET Part: A and B Procedure: Excision (less than total mastectomy) Specimen Laterality: Right Tumor size: Size of largest invasive carcinoma: Greatest dimension of largest focus of invasion >1 mm: 18 mm Tumor Focality: Single focus of invasive carcinoma Histologic Type of Invasive Carcinoma: Invasive carcinoma of no special type (ductal, not otherwise specified) Histologic Grade: Glandular (Acinar) / Tubular Differentiation: Score 3 Nuclear Pleomorphism: Score 3 Mitotic Rate: Score 3 Overall Grade: Grade III Ductal Carcinoma In Situ: Present Estimated size (extent) of DCIS is at least 20mm Architectural Patterns: Architectural Pattern:Solid DCIS Nuclear Grade: Grade III (high) DCIS Necrosis: Present, central (expansive comedo necrosis) Tumor Extension: Skin: Skin is not present Nipple: Not applicable, no nipple is present Skeletal muscle: No skeletal muscle is present Invasive Carcinoma Margins: Margins uninvolved by invasive carcinoma Distance from closest margin: 0.5 mm Closest margin: Inferior Distance of invasive carcinoma to superior margin: 1.4 mm DCIS Margins: Margins uninvolved by DCIS Specify (if <2mm) closest margin: 0.5 mm Closest margin: Superior Distance of DCIS to inferior margin: 1 mm Lymph Nodes: Uninvolved by tumor cells Total number of lymph nodes examined: 3 Number of sentinel lymph nodes examined: 3 Treatment Effect: No known presurgical therapy Lymph-Vascular Invasion: Present Pathologic Stage Classification (pTNM,AJCC 8th ed) TNM Descriptor(s): Not applicable Primary Tumor (Invasive Carcinoma) (pT): pT1c Regional Lymph Nodes (pN): Modifier: (sn): [place] node(s) evaluated Category (pN): pN0 Distant metastasis: Distant Metastasis (pM) Not applicable/Not confirmed pathologically in this case Estrogen & progesterone receptors: Previously performed and reported as follows: Estrogen receptor: Positive (>95%, strong) Progesterone receptor: Positive (90%, strong) Specimen number #: [id number] (HER2) ERBB2 Status: Previously performed and reported as follows: HER2:Positive (3+) Specimen number #: [id number] Immunology Teacher Tumor Block: Specify: B9 -- Farzana Mejia D.O. (Electronic Signature) SPECIMEN SUBMITTED A: RIGHT AXILLARY LYMPH NODES #1- 2000, #2- 600 B: RIGHT BREAST MASS CLINICAL DATA N.L. RIGHT BREAST LUMPECTOMY WITH SENTINEL NODE BIOPSY; RIGHT BREAST CANCER, LMP: NA GROSS DESCRIPTION A. Received in formalin is a soto-yellow segment of fibroadipose tissue. Upon sectioning, three nodules are identified ranging in size from 0.3 to 1.1 cm. The nodules are totally submitted as follows: A1 one nodule serially sectioned, A2 one nodule serially sectioned, A3 one nodule serially sectioned. Timmy 04/26/2020 B. Received in formalin in a Gio device is a soto-yellow segment of breast tissue measuring 6.0 cm medial laterally, 5.0 cm anteroposteriorly and 1.6 cm superior inferiorly. It weighs 39.9 grams. A needle localization wire is present within the specimen. The specimen is inked as follows: superior margin blue, inferior margin green, lateral margin red, medial margin orange, anterior margin purple, and posterior margin black. The specimen was sectioned to reveal a soto firm irregular shaped mass surrounding a ribbon shaped metal clip with the mass measuring 1.8 x 1.6 x 1.4 cm. The mass extends within 0.1 cm of the both the superior and inferior margins. No other gross lesions are identified. Immunology Teacher sections are submitted as follows: B1 slice 1 lateral margin, B2 slice 3 mass in relation to superior and inferior margin, B3 slice 4 posterior margin, B4 slice 4 mass in relation to superior and inferior margin, B5 slice 4 inferior margin, B6 slice 5 posterior margin, B7 slice 5 mass in relation to superior and inferior margin surrounding metal clip, B8 slice 5 inferior margin, B9 slice 6 mass in relation to superior and inferior margin, B10 slice 7 remainder of mass in relation to superior and inferior margin, B11 slice 11 medial margin. The time the specimen was removed from the patient was 13:50 hours on 04/22/20 and the time it is placed into formalin was 14:15 hours on 04/22/20. NIALL/simone 04/26/2020 [place] [address] Date of Report: 05/02/2020 Date of Procedure: 04/22/2020 Date of Receipt: 04/22/2020 Submitted by: Jose Haro M.D. Location: [facility] Diagnostic interpretation performed at [place] [address]. [place] Number: [id number] [facility] HISTORY PHYSICALon 0 HISTORY PHYSICAL HNO ID: [id number] Author: Lorna Witt Service: ? Author Type: Nurse Practitioner Type: HANDP Filed: 04/20/2020 9:23 AM Note Text: HISTORY AND PHYSICAL EXAMINATION SERVICE DATE: 04/20/2020 SERVICE TIME: 8:48 AM PRIMARY CARE PHYSICIAN: Loan Dias NP REASON FOR VISIT: Bo Monteiro is a 64 year old female who is scheduled for LUMPECTOMY BREAST, BIOPSY NODE SENTINEL AXILLARY,PLACEMENT OF BREAST LOCALIZATION DEVICE(S) PERCUTANEOUS; FIRST LESION, MAMMOGRAPHIC GUIDANCE, right at the request of Dr. Jose Haro for consultation. My final recommendation will be communicated back to the requesting physician by way of shared medical record or letter. The patient has the following: ACTIVE PROBLEM LIST Htn (Hypertension) Asymptomatic Pvcs Malignant Neoplasm of Upper-Outer Quadrant of Right Female Breast (Hcc) Subjective CHIEF COMPLAINT: Pre-Op Exam HPI: 64 year old female patient presents today with malignant neoplasm of upper outer quadrant of right female breast. Patient with palpable right breast mass that was found about a month ago. Since it was found she has experiences localized tenderness. She denies any nipple discharge or pain. She denies the use of any otc pain medication for management. Dx US and biopsy were completed which indicated IDC, provisional paige grade 3. She denies any family history of breast cancer. Denies any other cancer history, history of cancer metastasis, chemotherapy or radiation, change in her appetite or unintentional weight loss. PAST MEDICAL HISTORY Diagnosis Date - Arthritis - Breast cancer (HCC) 04/07/2020 - Ectopic fetus tube removed - Irregular heart beat PAST SURGICAL HISTORY Procedure Laterality Date - SECTION HX x 3 - EXCISION OF CYST Right 1994 FAMILY HISTORY Problem Relation Age of Onset - Hypertension Mother - Stroke Mother - Hypertension Maternal Grandmother - Stroke Maternal Grandmother SOCIAL HISTORY: Social History Tobacco Use - Smoking status: Former Smoker Years: 1.00 Types: Cigarettes - Smokeless tobacco: Never Used Substance Use Topics - Alcohol use: Yes Alcohol/week: 12.0 standard drinks Types: 7 Glasses of wine, 5 Glasses of Wine (5oz) per week Frequency: 2-3 times a week Drinks per session: 3 or 4 - Drug use: No Prior to Admission medications as of 04/20/20 0971 Medication Sig Last Dose Taking amLODIPine (NORVASC) 5 mg tablet Take 1 tablet by mouth once daily. Taking Yes calcium carbonate/vitamin D3 (CALCIUM 600 + D ORAL) Take by mouth. Taking Yes aspirin 81 mg chewable tablet aspirin 81 mg chewable tablet Taking Yes No medication comments found. ALLERGIES Allergen Reactions - Tape [Adhesive Tape* Rash REVIEW OF SYSTEMS: PAIN ASSESSMENT: General: No weight loss, malaise or fevers. Neuro: No history of TIA's, stroke, WAREHOUSE RECORD CLERK tumor, impaired sensorium, hemiplegia, paraplegia or quadraplegia. No neurological symptoms or problems. Respiratory:(+) Former cigarette smoker No history of current cough or dyspnea, or pneumonia in the past 6 weeks. No history of respiratory/pulmonary symptoms or problems. Cardiovascular: (+) Irregular HB- hx of PVC's, asymptomatic (+) HTN-controlled on Rx. No history of HLD, angina, CHF, IA, cardiac surgery or stent. Denies rest pain, gangrene or revascularization/amputatio n for PVD. No history of palpitations, syncope, DVT, PE or murmur. GI: No history of GI symptoms or problems. No history of esophageal varices, recent ascites, or ETOH greater than 2 drinks per day. : No history of dysuria, frequency or incontinence,, stones or chronic kidney disease, No difficulty urinating, nocturia > 1 time per night or hematuria HEDDLER TIER: Negative for abnormal vaginal bleeding, abnormal vaginal discharge. : Denies, No LMP recorded. Patient is postmenopausal. Endocrine: No history of diabetes. Has not taken steroids within the past 30 days. No history of endocrinological symptoms or problems. Hematology: No history of bleeding or clotting disorder. Pt is not taking anti-coagulation or platelet medications. No history of hematological symptoms or problems. Oncology: See HPI Psych: No history of psychiatric symptoms or problems. Musculoskeletal: Negative for joint pain or swelling, back pain or muscle pain. Skin: Negative for lesions, rash and itching. Objective PHYSICAL EXAM: VITALS: BP 144/89[repeat[ Pulse 87 Temp (Src) 97.6 (Tympanic) Resp 16 Ht 5' 3 (1.60m) Wt 184 lb (83.5kg) BMI 32.60 kg/(m2). General: Alert and oriented, No acute distress, Healthy appearance, Obese Skin: Normal color, no rash, no lesions. HEENT: EOM, pupils equal, round and reactive., No carotid bruits Cardiovascular: Normal S1 AND S2, no rubs, murmurs or gallops. No JVD. Pulse regular. Lungs: Normal breath sounds, no wheezes or crackles., No chest deformities or chest wall tenderness. Abdomen: Soft, non-tender, no rigidity., No masses or organomegaly., Positive bowel sounds Extremities: No deformity, no edema or tenderness, no joint swelling or clubbing. Neurological: Normal cognition and motor skills. Gait normal. No weakness or sensory deficit. Pulses: Carotid and radial pulses normal +2. Pedal pulses normal +2. Diagnostic tests reviewed for today's visit: Lab Value Units Date High Low HB No results within date range. HCT No results within date range. WBC No results within date range. PLT No results within date range. NA No results within date range. K No results within date range. GLUC No results within date range. BUN No results within date range. CREAT No results within date range. PTSEC No results within date range. INR No results within date range. APTT No results within date range. ALT No results within date range. AST No results within date range. TBILI No results within date range. TSH No results within date range. Lab Value Units Date High Low HCGQT No results within date range. UHCG No results within date range. HCG, BODY* No results within date range. Lab Value Units Date High Low ABORHD No results within date range. ABSCREEN No results within date range. Hemoglobin A1C (%) Date Value 03/19/2018 5.1 08/17/2015 5.1 Most recent labs- In Care Everywhere Most recent imaging Most recent EKG Assessment/Plan HTN (hypertension) Assessment: Controlled on Rx. Asymptomatic PVCs Assessment: Hx of PVC's, asymptomatic. Malignant neoplasm of upper-outer quadrant of right female breast (HCC) Assessment: Scheduled for lumpectomy 04/22/20. METS: Climb a flight of stairs or walk up a hill (5.50 METs) Patient denies any chest pain or undue shortness of breath with the above physical activity. ASA Class: 2 ANESTHESIA FINDINGS: Intubation History: No history of difficult intubation Significant Anesthesia Considerations: None Airway Exam: General: Normal appearance Mallampati Score is CLASS III ULBT: Class I - Lower incisors can bite the upper lip above the samantha line Neck: Normal appearance and function, Distance from hyoid to mentum during neck extension is at least 3 finger breaths Mouth: Normal tongue size and Mouth opening greater than 2 finger breaths Dentition: Intact Airway History: No history of difficult intubation STOP BANG Score: Criteria: Hypertension Age over 50 (64 year old) Score = 2 PLAN This patient is optimally prepared for surgery pending LABS and EKG. CONSULTS: Patient does not require consults for optimization at this time. The Following Tests/Procedures Have Been Initiated: Labs not indicated per PACC protocol, EKG not indicated per PACC protocol Planned Anesthetic: General Instructions Given to Patient: Instructions located in the after visit summary. Patient given verbal and written preop instructions and voices comprehension and compliance. SIGNATURE: Lorna Witt APRN.CNP PATIENT NAME: Bo Monteiro DATE: April 20, 2020 TIME: 8:48 AM PAGER/CONTACT #: [facility] NURSING PROGon 04-20-2020 NURSING PROG HNO ID: [id number] Author: Consuelo Mullins (Rn) BERNABE Rios Service: ? Author Type: Registered Nurse Type: Nursing Progress Note Filed: 04/20/2020 11:10 AM Note Text: PACC Nurse Progress Note History AND Physical: [facility] Visit Date: 04/20/2020 Original HANDP Date: 04/20/2020 ED visit Date: N/A Outside HANDP Scanned Date: N/A Labs Within Last 6 Months: Covid19 04/19/2020 - NEG Imaging Within Last 12 Months: See Epic for complete list of imaging Cardiac Testing: N/A Last Menstrual Period: LMP Date: not on record Postmenopausal >1yr: Yes S/P Hysterectomy: No Risk Assessment: N/A Anesthesia Review: N/A Narrative: N/A Pre-op Considerations: HTN - Controlled on Rx Hx of PVC's - asymptomatic Alcohol use - 12.0 standard drinks Chart Check: COMPLETED Consuelo Rios RN April 20, 2020 11:07 AM [facility] HOSPon 04-11-2020 HOSP Patient:Emmy Monteiro MRN: Height:5' 3(1.6 m) Weight:184 lb (83.462 kg) Outpatient Medications as of 04/22/20: amLODIPine (NORVASC) 5 mg tablet calcium carbonate/vitamin D3 (CALCIUM 600 + D ORAL) aspirin 81 mg chewable tablet Admission/Clinic Administered Medications as of 04/22/20: lactated ringers infusion ceFAZolin iv piggyback 2 g in D5W (iso-osmotic) 100 mL (ANCEF) Problem List: HTN (hypertension) [I10] Asymptomatic PVCs [I49.3] Malignant neoplasm of upper-outer quadrant of right female breast (HCC) [C50.411] Allergies: Tape [Adhesive Tape-Silicones] Date Verified: 04/22/20 Lab Values No results within the last 30 days for the following basenames: K,HCT Progress Notes ([facility]): Jose Haro MD 04/11/2020 6:06 PM Signed HISTORY AND PHYSICAL - BREAST CANCER Bo Monteiro 1955 April 11, 2020 REFERRING PHYSICIAN: Marisabel Cummings MD CHIEF COMPLAINT: BREAST CANCER - RIGHT - INVASIVE DUCTAL CARCINOMA HPI: Bo is a 64-year-old female with no family history of breast cancer. The patient had her previous mammogram proximally 2 years prior with no specific abnormalities. The patient is performing self breast exam when she noticed a mass on the inner right breast just superior medial to the nipple. The patient was referred for mammogram and ultrasound. She underwent diagnostic mammogram with right ultrasound of the breast on April 04, 2020 which demonstrated: IMPRESSION: INCOMPLETE: NEEDS ADDITIONAL IMAGING EVALUATION The new mass in the right breast is indeterminate. ?An ultrasound is recommended. LIMITED ULTRASOUND OF RIGHT BREAST AND AXILLA: 04/04/2020 RESULT: Comparison is made to exams dated: ?10/11/2017 mammogram and 10/24/2017 mammogram. Color flow and real-time ultrasound of the right breast 1 o'clock, and axilla regions were performed. ?Malave scale images of the real-time examination were reviewed. There is 1.6 cm x 1.4 cm x 1.6 cm irregular mass in the right breast at 1 o'clock 2 cm from the nipple. ?This irregular mass is hypoechoic. ?This correlates as palpated and with mammography findings. ?Color flow imaging demonstrates that there is no increase in vascularity. ? Normal appearing lymph nodes are seen in the right axilla. IMPRESSION: HIGHLY SUGGESTIVE OF MALIGNANCY - APPROPRIATE ACTION SHOULD BE TAKEN The 1.6 cm x 1.4 cm x 1.6 cm irregular mass in the right breast is highly suggestive of malignancy. ?An ultrasound guided biopsy is recommended. The patient went ultrasound-guided core biopsy on April 05, 2020 with follow-up diagnostic right mammogram demonstrating good positioning of the postbiopsy clip. Pathology demonstrated: FINAL DIAGNOSIS Right breast, 1 o'clock 2 cm FN, mass, ultrasound-guided needle core biopsy with ribbon clip placement: - Invasive ductal carcinoma, provisional Paige grade 3. RESULTS Estrogen Receptor (ER) ? ?Positive (>95%) ? ?Average stain intensity: ?strong ? ?Status of internal controls: ?Internal control cells absent ? ?External controls: ?Appropriately reactive Progesterone Receptor (PgR) ? ?Positive (90%) ? ?Average stain intensity: ?moderate to strong ? ?Status of internal controls: Internal control cells absent ? ?External controls: Appropriately reactive HER2 (ERBB2) IMMUNOHISTOCHEMISTRY ASSAY Interpretation: POSITIVE for HER2 (ERBB2) Expression Score: 3+ Percentage of cells with uniform intense complete membrane staining: ?75% (reported for 2+ and 3+ scores only) The patient was referred with a given diagnosis of invasive ductal carcinoma for discussion concerning her diagnosis and treatment planning. The patient is being seen by me today at the request of Loan Dias NP for my opinion and advice regarding right breast invasive adenocarcinoma. PAST MEDICAL HISTORY Diagnosis Date - Arthritis - Breast cancer (HCC) 04/07/2020 - Ectopic fetus tube removed - Irregular heart beat PAST SURGICAL HISTORY Procedure Laterality Date - SECTION HX x 3 - EXCISION OF CYST Right 1994 Current Outpatient Medications Medication Sig Dispense Refill - amLODIPine (NORVASC) 5 mg tablet Take 1 tablet by mouth once daily. 30 tablet 1 - calcium carbonate/vitamin D3 (CALCIUM 600 + D ORAL) Take by mouth. - aspirin 81 mg chewable tablet aspirin 81 mg chewable tablet - prednisoLONE acetate (PRED FORTE, ECONOPRED PLUS) 1 % ophthalmic suspension Use 1 Drop in the left eye four times daily. For one week following surgery then taper as directed 1 Bottle 0 - moxifloxacin (VIGAMOX) 0.5 % ophthalmic solution Use 1 Drop in the right eye four times daily. For one week following surgery beginning the day before 1 Bottle 1 - prednisoLONE acetate (PRED FORTE, ECONOPRED PLUS) 1 % ophthalmic suspension Use 1 Drop in the right eye four times daily. For one week following surgery then taper as directed 1 Bottle 1 - ketorolac (ACULAR) 0.5 % ophthalmic solution Use 1 Drop in the right eye four times daily. For one week following surgery 1 Bottle 1 - meclizine (ANTIVERT) 25 mg tab Take 2 tablets by mouth twice daily. 30 tablet 0 - HYDROcodone-acetaminophen (NORCO) 5-325 mg per tablet Take 1 tablet by mouth every 6 hours as needed. 12 tablet 0 No current facility-administered medications for this visit. ALLERGIES: Tape [Adhesive Tape-Silicones] PERSONAL HISTORY: Social History Tobacco Use - Smoking status: Former Smoker Types: Cigarettes - Smokeless tobacco: Never Used Substance Use Topics - Alcohol use: Yes Alcohol/week: 7.0 standard drinks Types: 7 Glasses of wine per week - Drug use: No FAMILY HISTORY: FAMILY HISTORY Problem Relation Age of Onset - Hypertension Mother - Stroke Mother - Hypertension Maternal Grandmother - Stroke Maternal Grandmother REVIEW OF SYSTEMS: General: The patient denies fatigue, denies weight loss, denies weight gain, denies feeling hot, and denies feelings of cold. Eyes: The patient denies glaucoma, NOTES eye injury/surgery, does not wear glasses or contacts. Ear/Nose/Throat: The patient denies allergies, denies hayfever, denies ear infections, and denies bloody noses. Cardiovascular: The patient denies chest pain, denies heart disease, denies high blood pressure, denies high cholesterol, and denies poor circulation. Respiratory: The patient denies tuberculosis, denies pneumonia, denies frequent cough, denies shortness of breath, and denies coughing up blood. Gastrointestinal: The patient denies difficulty swallowing, denies acid reflux, denies ulcers, denies jaundice/hepatitis, denies gallbladder problems, denies vomiting, denies black or tarry stools, denies hemorrhoids, denies bleeding from rectum, denies diverticulitis, denies constipation, denies diarrhea, denies loss of stool control, and denies hernias. Kidney/Bladder: The patient denies kidney stones, denies urine infections, and denies bloody urine. Skin: The patient denies a history of skin cancer, denies bleeding/changing moles, and NOTES a history of skin rash. Neurologic: The patient denies a history of epilepsy/convulsions, denies headaches, denies head/spinal injuries, and denies stroke/TIA. Psychiatric: The patient denies psychiatric medications, denies depression, and denies voices. Endocrine: The patient denies thyroid disorders, denies diabetes, and denies hormonal problems. Hematologic: The patient denies a history of bruising, denies bleeding, and denies anemia. Infections: The patient NOTES a history of measles and mumps, denies rheumatic fever, and denies sexually transmitted diseases. Musculoskeletal: The patient denies back pain/injury, denies back problems, denies sciatica, denies knee/foot trouble, NOTES arthritis, or denies gout PHYSICAL EXAMINATION: General: The patient is 64 year old female, well nourished, well hydrated in no acute distress. The patient is oriented to time, place, and person. VITALS: Blood pressure 136/85, pulse 97, height 160 cm (5' 3), weight 81.2 kg (179 lb). Body mass index is 31.71 kg/m?. HEENT: Normal cephalic, ataumatic, pupils are equally round, sclera are anicteric, mucous membranes are moist, oropharynx is clear. Neck has no masses, asymmetry or lymphadenopathy. Thyroid is unremarkable. Respiratory: Clear to auscultation and percussion. Normal respiratory excursion and pattern. Cardiac: Examination is regular rate and rhythm. Abdominal exam: Soft, nontender, with no palpable masses. No hepatosplenomegaly. No palpable hernias. Rectal exam: exam deferred Extremities: no clubbing, cyanosis or edema. No adenopathy. Breast: Visual inspection reveals no retractions, nipple inversion, or skin changes. Palpation of the right breast reveals the mass of concern at the 2 oclock position. The mass is partially to send reason size firm and irregular.. Palpation of the left breast reveals no dominant or suspicious masses, but multiple benign-feeling nodules. Axillary exam demonstrates no suspicious masses in either the left or right axilla. There is no nipple discharge expressed from either the left or right breast. LABORATORY VALUES: As Noted RADIOLOGIC STUDIES: As Noted Assessment IMPRESSION: BREAST CANCER - RIGHT - INVASIVE DUCTAL CARCINOMA PLAN: I plan to perform a right side needle localization biopsy/lumpectomy with sentinel lymph node biopsy with possible axillary dissection. The planned surgical procedure was discussed extensively with the patient. The risks, benefits, anticipated outcomes and possible complications and alternatives were discussed. My staff has also explained the procedure in understandable terms and the patient was given the option to take printed material concerning the planned procedure. The patient had the opportunity to ask questions concerning the planned procedure. The patient freely consents to the planned procedure. The patient was offered a surgery/procedure at a [facility]. The surgeon/proceduralist and patient have discussed in detail the risk of exposure to and/or potential harm posed by the COVID-19 virus with having a surgery/procedure at this time versus the risk of delaying the surgery/procedure. It is not possible to know either the risk of delaying the surgery or procedure or chance of getting an infection with perfect accuracy, but a joint decision was made between the patient and the surgeon/proceduralist to proceed at this time with the scheduled surgery/procedure as indicated on the consent form. Anticipated Surgical Procedure/ CPT Code: right preoperative stereotactic guided needle placement - 85443 LUMPECTOMY, WITH SENTINEL LYMPH NODE BIOPSY, Radiotracter identification - [id number], [id number], [id number], [id number], [id number] Anticipated Anesthetic: General Patient weight: Blood pressure 136/85, pulse 97, height 160 cm (5' 3), weight 81.2 kg (179 lb). BMI: Body mass index is 31.71 kg/m?. Planned antibiotic: Ancef 2gm IVPB research and evaluation analyst to OR SCDs needed - Yes Refrigeration Houseman Needed - Yes Diagnoses: (C50.411) Malignant neoplasm of upper-outer quadrant of right female breast, unspecified estrogen receptor status (HCC) (primary encounter diagnosis) Return to Clinic: The patient is instructed to follow-up with me 1 week post operatively. __ Jose Haro MD Previous Version Progress Notes ([facility]): Barbara Shultz RN 04/07/2020 3:10 PM Signed Call from Breast Center Coordinator Ursula Harmon at [facility] to request appointment with Dr Cummings for breast surgery consult. Dr Cummings is out of office from 04/08/20 to 04/27/20. May need to offer anther surgeon due to diagnosis of breast cancer. Message routed to [facility] to assist with calling patient to schedule appointment for Breast Surgery Consult Barbara Shultz RN 04/07/2020 4:19 PM Signed Phyllis Madden; [place] [facility] [address]; [facility] Surg Superintendent Track's Pool; Catrina Reeder 3 minutes ago (4:15 PM) Patient is scheduled for 04/11/[address] Haro Encounter closed. Normal [facility] DIAGNOSTIC RTon 04-05-20 [facility] DIAGNOSTIC RT * * *Final Report* * * * * * SEE BOTTOM OF REPORT FOR ADDENDED TEXT * * * DATE OF EXAM: Apr 05 2020 9:17AM CHRIS [id number] - [facility] DIAGNOSTIC RT / PROCEDURE REASON: RIGHT BREAST BIOPSY * * * * Physician Interpretation * * * * FINAL REPORT #[id number] - [facility] DIAGNOSTIC RT #[id number] - [facility] US BIOPSY BREAST RT ULTRASOUND GUIDED BIOPSY RIGHT BREAST WITH MARKING DEVICE INSERTED AND POST DIGITAL MAMMOGRAPHIC AND ULTRASOUND IMAGIN04/05/2020 HISTORY: R92.8-Abnormal Finding On Radiological Examination Of Breast Right Breast Biopsy. PATIENT CONSENT: A time-out was performed immediately prior to procedure start with the radiology team, correctly identifying the patient name, date of , procedure, anatomy (including marking of site and side), patient position, relevant diagnostic and radiology test results, safety precautions, and procedure-specific equipment needs. The procedure was explained to the patient including the risks, benefits and alternatives. Medications and allergies were also reviewed. The risks, including but not limited to infection and bleeding, were reviewed by the performing physician and the patient agreed to undergo the procedure. The radiologist and technologist were present throughout the entire procedure. Audible Time Out: 0857 Procedure Start: 858 Procedure End: 900 PROCEDURE: Correlation is made to exams dated: 04/04/2020 mammogram and 04/04/2020 ultrasound [facility]. An ultrasound guided biopsy using real-time ultrasound was performed for the concerning 1.6 cm x 1.4 cm x 1.6 cm solid mass located in the right breast at 1 o'clock posterior depth 2 cm from the nipple. This was described on the previous mammography and ultrasound reports. The skin was prepped in the usual manner. Local anesthetic was administered to the access site. A skin nanci was made in the breast. The abnormality was approached from the caudocranial aspect. An 18 gauge biopsy needle was placed adjacent to the abnormality under ultrasound guidance. Once the needle was documented to be in the correct location, a core was obtained using a BARD biopsy device. The patient received additional local anesthetic during the procedure. A ribbon clip was inserted into the biopsy cavity. A sterile dressing was applied to the access site. Post procedure digital mammographic and ultrasound imaging demonstrates the location device at the targeted area. The specimen was sent to the laboratory for pathological analysis. IMPRESSION: ULTRASOUND GUIDED BIOPSY MALIGNANT Ultrasound guided biopsy of the 1.6 cm x 1.4 cm x 1.6 cm solid mass in the right breast at 1 o'clock posterior depth 2 cm from the nipple was successful with no apparent post procedure complications. Pathology indicates malignant invasive ductal carcinoma (ID). Pathology results are concordant with mammography, ultrasound, and biopsy findings. UNILATERAL RIGHT DIGITAL DIAGNOSTIC MAMMOGRAM WITH CAD: 04/05/2020 RESULT: TECHNIQUE: The study was acquired using full field digital technology and interpreted from soft copy. Current study was also evaluated with a Computer Aided Detection (CAD). Comparison is made to exams dated: 04/04/2020 mammogram and 04/04/2020 ultrasound - [facility]. There are scattered fibroglandular elements in right breast. There is a marker clip in the appropriate position in the right breast at 1 o'clock middle depth 2 cm from the nipple. This is seen in additional views. This marker clip placement is at the biopsy site. IMPRESSION: POST PROCEDURE MAMMOGRAM FOR MARKER PLACEMENT There was a successful marker clip placement in the right breast middle depth. SUMMARY: The patient was notified of the pathology results by phone on 04.07.2020. Surgical consultation is recommended. The Breast Imaging Nurse Navigator will contact the patient with her appointment. Guy clifford/charlene:04/07/2020 15:00:42 copy to: GUY ARAYA, ph: [phone] Quill Picking Machine Operator(s): RT Jason(R)(M), [facility]; Caridad Ramey, [facility] Mammogram BI-RADS: Post-procedure mammogram for marker placement Multiple national specialty organizations have released breast cancer screening guidelines for women at average risk for developing breast cancer - guidelines that are based on both evidence and opinion, yet differ on when to start and how often to screen for breast cancer. With representation from Breast Imaging, Internal Medicine, Women's Health, Family Medicine, and Medical/Surgical Oncology, the [facility] has carefully reviewed the data and reached the following consensus: 1) All women should engage in shared decision-making with their providers to decide when to start and how often to screen; 2) All women should have the opportunity to start screening mammography at age 40; 3) For women ages 45-55, we recommend annual screening mammograms; 4) For women ages 55 and over, we support both the transition from an annual to a biennial interval if this aligns more with patient's values and preferences, or continuation with annual screening; 5) All women should discuss with their providers when to stop screening mammograms. Glass Melt Operator: Charlene Transcribe Date/Time: Apr 05 2020 8:39A Dictated by : GUY ARAYA MD This examination was interpreted and the report reviewed and electronically signed by: GUY ARAYA MD on Apr 05 2020 9:29AM EST This document has been addended by: GUY ARAYA MD on Apr 07 2020 3:00PM EST [id number] Normal [facility] US BIOPSY BREAST RTon [facility] US BIOPSY BREAST RT * * *Final Report* * * * * * SEE BOTTOM OF REPORT FOR ADDENDED TEXT * * * DATE OF EXAM: Apr 05 2020 9:09AM U [id number] - [facility] US BIOPSY BREAST RT / PROCEDURE REASON: R92.8-Abnormal finding on radiological examination of breast * * * * Physician Interpretation * * * * FINAL REPORT #[id number] - [facility] DIAGNOSTIC RT #[id number] - [facility] US BIOPSY BREAST RT ULTRASOUND GUIDED BIOPSY RIGHT BREAST WITH MARKING DEVICE INSERTED AND POST DIGITAL MAMMOGRAPHIC AND ULTRASOUND IMAGIN04/05/2020 HISTORY: R92.8-Abnormal Finding On Radiological Examination Of Breast Right Breast Biopsy. PATIENT CONSENT: A time-out was performed immediately prior to procedure start with the radiology team, correctly identifying the patient name, date of , procedure, anatomy (including marking of site and side), patient position, relevant diagnostic and radiology test results, safety precautions, and procedure-specific equipment needs. The procedure was explained to the patient including the risks, benefits and alternatives. Medications and allergies were also reviewed. The risks, including but not limited to infection and bleeding, were reviewed by the performing physician and the patient agreed to undergo the procedure. The radiologist and technologist were present throughout the entire procedure. Audible Time Out: 08 Procedure Start: 858 Procedure End: 900 PROCEDURE: Correlation is made to exams dated: 04/04/2020 mammogram and 04/04/2020 ultrasound - [facility]. An ultrasound guided biopsy using real-time ultrasound was performed for the concerning 1.6 cm x 1.4 cm x 1.6 cm solid mass located in the right breast at 1 o'clock posterior depth 2 cm from the nipple. This was described on the previous mammography and ultrasound reports. The skin was prepped in the usual manner. Local anesthetic was administered to the access site. A skin nanci was made in the breast. The abnormality was approached from the caudocranial aspect. An 18 gauge biopsy needle was placed adjacent to the abnormality under ultrasound guidance. Once the needle was documented to be in the correct location, a core was obtained using a BARD biopsy device. The patient received additional local anesthetic during the procedure. A ribbon clip was inserted into the biopsy cavity. A sterile dressing was applied to the access site. Post procedure digital mammographic and ultrasound imaging demonstrates the location device at the targeted area. The specimen was sent to the laboratory for pathological analysis. IMPRESSION: ULTRASOUND GUIDED BIOPSY MALIGNANT Ultrasound guided biopsy of the 1.6 cm x 1.4 cm x 1.6 cm solid mass in the right breast at 1 o'clock posterior depth 2 cm from the nipple was successful with no apparent post procedure complications. Pathology indicates malignant invasive ductal carcinoma (ID). Pathology results are concordant with mammography, ultrasound, and biopsy findings. UNILATERAL RIGHT DIGITAL DIAGNOSTIC MAMMOGRAM WITH CAD: 04/05/2020 RESULT: TECHNIQUE: The study was acquired using full field digital technology and interpreted from soft copy. Current study was also evaluated with a Computer Aided Detection (CAD). Comparison is made to exams dated: 04/04/2020 mammogram and 04/04/2020 ultrasound - [facility]. There are scattered fibroglandular elements in right breast. There is a marker clip in the appropriate position in the right breast at 1 o'clock middle depth 2 cm from the nipple. This is seen in additional views. This marker clip placement is at the biopsy site. IMPRESSION: POST PROCEDURE MAMMOGRAM FOR MARKER PLACEMENT There was a successful marker clip placement in the right breast middle depth. SUMMARY: The patient was notified of the pathology results by phone on 04.07.2020. Surgical consultation is recommended. The Breast Imaging Nurse Navigator will contact the patient with her appointment. Guy clifford/charlene:04/07/2020 15:00:42 copy to: GUY ARAYA, ph: [phone] Quill Picking Machine Operator(s): RT Jason(R)(M), [facility]; Caridad Ramey, [facility] Mammogram BI-RADS: Post-procedure mammogram for marker placement Multiple national specialty organizations have released breast cancer screening guidelines for women at average risk for developing breast cancer - guidelines that are based on both evidence and opinion, yet differ on when to start and how often to screen for breast cancer. With representation from Breast Imaging, Internal Medicine, Women's Health, Family Medicine, and Medical/Surgical Oncology, the [facility] has carefully reviewed the data and reached the following consensus: 1) All women should engage in shared decision-making with their providers to decide when to start and how often to screen; 2) All women should have the opportunity to start screening mammography at age 40; 3) For women ages 45-55, we recommend annual screening mammograms; 4) For women ages 55 and over, we support both the transition from an annual to a biennial interval if this aligns more with patient's values and preferences, or continuation with annual screening; 5) All women should discuss with their providers when to stop screening mammograms. Glass Melt Operator: Charlene Transcribe Date/Time: Apr 05 2020 8:39A Dictated by : GUY ARAYA MD This examination was interpreted and the report reviewed and electronically signed by: GUY ARAYA MD on Apr 05 2020 9:29AM EST This document has been addended by: GUY ARAYA MD on Apr 07 2020 3:00PM EST [id number] Normal [facility] SURGICAL PATHOLOGYon 020 SURGICAL PATHOLOGY ADDITIONAL PROCEDURES PRESENT Specimen originated from [facility] Specimen #: [id number] Submitting Physician: GUY ARAYA MD FINAL DIAGNOSIS Right breast, 1 o'clock 2 cm FN, mass, ultrasound-guided needle core biopsy with ribbon clip placement: - Invasive ductal carcinoma, provisional Paige grade 3. MKK/td 04/06/2020 COMMENT The invasive carcinoma measures 9 mm in greatest contiguous focus. Immunohistochemical stains p63 and SMMS show an absent myoepithelial cell investiture, supporting invasive carcinoma. Estrogen receptor, progesterone receptor, and HER2 analysis will follow in an addendum. Select pertinent slides reviewed with Dr. Olvin Mejia in concurrence of the presence of invasive carcinoma. Laboratory Developed Test (LDT) Disclaimer: Positive and negative controls stain appropriately. Performance characteristics of immunohistochemical, immunofluorescent and chromogenic in-situ hybridization tests have been determined by [facility]'s [facility] [place] ([facility]) in a manner consistent with CLIA requirements. One or more of these tests have not been cleared or approved by the FDA. [facility] is regulated under CLIA as qualified to perform high-complexity testing.These tests are used for clinical purposes. They should not be regarded as investigational or for research. Juan Rock DO (Electronic Signature) SPECIMEN SUBMITTED A: RIGHT BREAST MASS, 1:00, 2CMFN, RIBBON CLIP, BIOPSY ADDITIONAL PROCEDURE(S) BREAST MARKERS WITH HER2 (ERBB2) IHC Date Ordered: 04/07/2020 Date Reported: 04/07/2020 Procedure Results and Interpretation Breast Biomarkers Template RESULTS Estrogen Receptor (ER) Positive (>95%) Average stain intensity: strong Status of internal controls: Internal control cells absent External controls: Appropriately reactive Progesterone Receptor (PgR) Positive (90%) Average stain intensity: moderate to strong Status of internal controls: Internal control cells absent External controls: Appropriately reactive HER2 (ERBB2) IMMUNOHISTOCHEMISTRY ASSAY Interpretation: POSITIVE for HER2 (ERBB2) Expression Score: 3+ Percentage of cells with uniform intense complete membrane stainin% (reported for 2+ and 3+ scores only) Block Number: A1 Tissue Analyzed: Invasive carcinoma Specimen fixative: 10% neutral buffered formalin Length of fixation: >6 and <72 hours Cold ischemia time: < 1 hour Latest ASCO/CAP guidelines for fixation met: yes These results should be interpreted with caution if the above pre-analytical values do not meet the ASCO/CAP guidelines for tissue fixation and handling. Reference Range for Hormone Receptors: Staining of greater than or equal to 1% of the tumor cells is considered positive. Reference Ranges for HER2 (ERBB2) immunohistochemistry: Positive (3+): Complete, intense circumferential membrane staining in >10% of tumor cells Equivocal (2+): Weak to moderate complete membrane staining observed in >10% of tumor cells Negative (1+): Incomplete, faint membrane staining in >10% of tumor cells Negative (0): No staining or incomplete, faint membrane staining in 10% of tumor cells Consideration of follow-up testing for HER2 (ERBB2) status by fluorescence in situ hybridization (FISH) for all equivocal (2+) results is recommended and will be ordered as a reflex test if FISH was not a testing methodology already employed. METHODS Estrogen Receptor: Food and Drug Administration (FDA) cleared: [employer], [place], [place] Primary Antibody: SP1 Progesterone Receptor: FDA cleared: [employer], [place], [place] Primary Antibody: IE2 HER2 (ERBB2) by IHC: FDA cleared: [employer], [place], [place] Primary Antibody: 4B5 The hormone receptor tests were performed and reported according to Estrogen and Progesterone Receptor Testing in Breast Cancer: [place] Society of Clinical Oncology/College of Nauruan PathologistsGuidelineUpdate . Arch Pathol Lab Med.2020May;144(5):545-563. doi: 10.5858/arpa.[email or web address]-YV. [id number]. The hormone receptor assays have been internally validated on decalcified tissues. Estrogen and progesterone receptor results are valid if tissue was processed according to ASCO/CAP guidelines. Antibody and Detection System: [employer] anti-HER2 rabbit monoclonal antibody (clone 4B5), Ola anti-estrogen receptor rabbit monoclonal antibody (clone SP1) and Ola anti-progesterone receptor rabbit monoclonal antibody (clone IE2) detected with the [employer] iView Detection System (indirect biotin streptavidin detection); [employer], [place], [place]. Control slides: Cell line controls with high, equivocal, low and negative HER2 protein expression, along with known positive control tissue as well as the patient's tissue are evaluated for HER2 expression. A separate slide of the patient's tissue is similarly processed without antibody (negative control); slides were reviewed and showed appropriate staining. The HER2 immunohistochemistry assay was developed, validated, scored, and reported in accordance with the guidelines approved by the [place] Society of Clinical Oncologists and the College of [place] Pathologists. Zafar BERMUDEZ et al. Arch Pathol Lab Med. 2018;137(9) . The HER2 assay has not been validated on decalcified tissues. Results should be interpreted with caution given the possibility of false negative results on decalcified specimens. MKK/mkk 04/07/2020 Procedure Pathologist: Juan Rock DO Electronic Signature CLINICAL DATA R/O MALIGNANCY GROSS DESCRIPTION A. Received in formalin labeled as Right breast is one segment of cylindrical tissue measuring 1.0 x 0.2 x 0.1 cm, yellow-white and of a soft consistency. The specimen is removed from the patient at 9:00 on 04/05/2020. The specimen was placed in formalin at 9:00 on 04/05/2020. Totally submitted in formalin in one cassette. Fixative type: 10% neutral buffered formalin Length of fixation: 12 hours and 47 minutes Cold ischemia time: < 1 minute(s) Gross examination performed at [facility], [address] [place] [address] 04/05/2020 3:18:49 PM Date of Report: 04/07/2020 Date of Procedure: 04/05/2020 Date of Receipt: 04/05/2020 Submitted by: GUY ARAYA MD Location: [facility] Diagnostic interpretation performed at [facility], [address] [place] [address]. CLIA Number: [id number] [facility] DIAGNOSTIC BILon 020 [facility] DIAGNOSTIC TRACEE * * *Final Report* * * DATE OF EXAM: Apr 04 2020 8:29AM CHRIS 06 - [facility] DIAGNOSTIC TRACEE / PROCEDURE REASON: right breast mass * * * * Physician Interpretation * * * * #[id number] - [facility] DIAGNOSTIC TRACEE #[id number] - [facility] US BREAST LTD RT BILATERAL DIGITAL DIAGNOSTIC MAMMOGRAM WITH CAD: 04/04/2020 HISTORY: Right Breast Mass /SEE TECH NOTE /The patient is also due for her annual bilateral mammogram. Breast Mass. RESULT: TECHNIQUE: The study was acquired using full field digital technology and interpreted from soft copy. Current study was also evaluated with a Computer Aided Detection (CAD). Comparison is made to exams dated: 10/11/2017 mammogram and 10/24/2017 mammogram. There are scattered fibroglandular elements in both breasts. There are stable post operative findings in the right breast. There is a new mass in the right breast upper inner aspect. This correlates as palpated. No other significant masses, calcifications, or other findings are seen in either breast. IMPRESSION: INCOMPLETE: NEEDS ADDITIONAL IMAGING EVALUATION The new mass in the right breast is indeterminate. An ultrasound is recommended. LIMITED ULTRASOUND OF RIGHT BREAST AND AXILLA: 04/04/2020 RESULT: Comparison is made to exams dated: 10/11/2017 mammogram and 10/24/2017 mammogram. Color flow and real-time ultrasound of the right breast 1 o'clock, and axilla regions were performed. Malave scale images of the real-time examination were reviewed. There is 1.6 cm x 1.4 cm x 1.6 cm irregular mass in the right breast at 1 o'clock 2 cm from the nipple. This irregular mass is hypoechoic. This correlates as palpated and with mammography findings. Color flow imaging demonstrates that there is no increase in vascularity. Normal appearing lymph nodes are seen in the right axilla. IMPRESSION: HIGHLY SUGGESTIVE OF MALIGNANCY - APPROPRIATE ACTION SHOULD BE TAKEN The 1.6 cm x 1.4 cm x 1.6 cm irregular mass in the right breast is highly suggestive of malignancy. An ultrasound guided biopsy is recommended. SUMMARY: The results, images and biopsy procedure were discussed with the patient. Informed consent was obtained and the patient signed the consent form electronically. The patient made an appointment for the recommended biopsy before leaving the department. Andreia graf/charlene:04/04/2020 10:19:34 copy to: LOAN DIAS, ph: [phone] Multiple national specialty organizations have released breast cancer screening guidelines for women at average risk for developing breast cancer - guidelines that are based on both evidence and opinion, yet differ on when to start and how often to screen for breast cancer. With representation from Breast Imaging, Internal Medicine, Women's Health, Family Medicine, and Medical/Surgical Oncology, the [facility] has carefully reviewed the data and reached the following consensus: 1) All women should engage in shared decision-making with their providers to decide when to start and how often to screen; 2) All women should have the opportunity to start screening mammography at age 40; 3) For women ages 45-55, we recommend annual screening mammograms; 4) For women ages 55 and over, we support both the transition from an annual to a biennial interval if this aligns more with patient's values and preferences, or continuation with annual screening; 5) All women should discuss with their providers when to stop screening mammograms. Quill Picking Machine Operator(s): Shelley Bravo, RT(R)(M), [facility]; Caridad Ramey, [facility] OVERALL STUDY BIRADS: 5 Highly suggestive of malignancy - Appropriate action should be taken Glass Melt Operator: Charlene Transcribe Date/Time: Apr 04 2020 8:17A Dictated by : ANDREIA GREENWOOD MD This examination was interpreted and the report reviewed and electronically signed by: ANDREIA GREENWOOD MD on Apr 04 2020 10:19AM EST [id number] Normal [facility] US BREAST LTD RTon 04-04 [facility] US BREAST LTD RT * * *Final Report* * * DATE OF EXAM: Apr 04 2020 9:39AM MDU [id number] - [facility] US BREAST LTD RT / PROCEDURE REASON: breast mass * * * * Physician Interpretation * * * * #[id number] - [facility] DIAGNOSTIC TRACEE #[id number] - [facility] US BREAST LTD RT BILATERAL DIGITAL DIAGNOSTIC MAMMOGRAM WITH CAD: 04/04/2020 HISTORY: Right Breast Mass /SEE TECH NOTE /The patient is also due for her annual bilateral mammogram. Breast Mass. RESULT: TECHNIQUE: The study was acquired using full field digital technology and interpreted from soft copy. Current study was also evaluated with a Computer Aided Detection (CAD). Comparison is made to exams dated: 10/11/2017 mammogram and 10/24/2017 mammogram. There are scattered fibroglandular elements in both breasts. There are stable post operative findings in the right breast. There is a new mass in the right breast upper inner aspect. This correlates as palpated. No other significant masses, calcifications, or other findings are seen in either breast. IMPRESSION: INCOMPLETE: NEEDS ADDITIONAL IMAGING EVALUATION The new mass in the right breast is indeterminate. An ultrasound is recommended. LIMITED ULTRASOUND OF RIGHT BREAST AND AXILLA: 04/04/2020 RESULT: Comparison is made to exams dated: 10/11/2017 mammogram and 10/24/2017 mammogram. Color flow and real-time ultrasound of the right breast 1 o'clock, and axilla regions were performed. Malave scale images of the real-time examination were reviewed. There is 1.6 cm x 1.4 cm x 1.6 cm irregular mass in the right breast at 1 o'clock 2 cm from the nipple. This irregular mass is hypoechoic. This correlates as palpated and with mammography findings. Color flow imaging demonstrates that there is no increase in vascularity. Normal appearing lymph nodes are seen in the right axilla. IMPRESSION: HIGHLY SUGGESTIVE OF MALIGNANCY - APPROPRIATE ACTION SHOULD BE TAKEN The 1.6 cm x 1.4 cm x 1.6 cm irregular mass in the right breast is highly suggestive of malignancy. An ultrasound guided biopsy is recommended. SUMMARY: The results, images and biopsy procedure were discussed with the patient. Informed consent was obtained and the patient signed the consent form electronically. The patient made an appointment for the recommended biopsy before leaving the department. Andreia graf/charlene:04/04/2020 10:19:34 copy to: LOAN DIAS, ph: [phone] Multiple national specialty organizations have released breast cancer screening guidelines for women at average risk for developing breast cancer - guidelines that are based on both evidence and opinion, yet differ on when to start and how often to screen for breast cancer. With representation from Breast Imaging, Internal Medicine, Women's Health, Family Medicine, and Medical/Surgical Oncology, the [facility] has carefully reviewed the data and reached the following consensus: 1) All women should engage in shared decision-making with their providers to decide when to start and how often to screen; 2) All women should have the opportunity to start screening mammography at age 40; 3) For women ages 45-55, we recommend annual screening mammograms; 4) For women ages 55 and over, we support both the transition from an annual to a biennial interval if this aligns more with patient's values and preferences, or continuation with annual screening; 5) All women should discuss with their providers when to stop screening mammograms. Quill Picking Machine Operator(s): RT Yunior(R)(M)[facility]; Caridad RameyMercy Health Clermont Hospital OVERALL STUDY BIRADS: 5 Highly suggestive of malignancy - Appropriate action should be taken Glass Melt Operator: Charlene Transcribe Date/Time: Apr 04 2020 8:17A Dictated by : ANDREIA GREENWOOD MD This examination was interpreted and the report reviewed and electronically signed by: ANDREIA GREENWOOD MD on Apr 04 2020 10:19AM EST [id number] [facility] PROGRESSon 04-04-2020 PROGRESS HNO ID: [id number] Author: GAVI Mojica (Ct) Service: Radiology Author Type: Clinical Market Development Director Type: Progress Notes Filed: 04/04/2020 8:29 AM Note Text: Radiology Service Progress Note PATIENT NAME: Bo Monteiro DATE OF SERVICE: April 04, 2020 TIME: 8:29 AM PATIENT IDENTITY VERIFICATION COMPLETED USING TWO (2) IDENTIFIERS: Name and Date of confirmed by patient verbally and Name and Date of confirmed by identification band. FALL SCREENING: Has the patient had 2 falls in the last year or 1 fall with injury or currently using an Ambulatory Assistive Device (Walker, Cane, Wheelchair, Crutches, etc.)? No PATIENT GENDER DATA: Female. status: : No status: NO. PATIENT RELEVANT IMPLANT DATA REVIEWED: Not Applicable RADIOLOGY DEPARTMENT: Mammography PERIPHERAL IV DATA: Not applicable SIGNED BY: GAVI Mojica April 04, 2020 8:29 AM [facility] PROGRESS HNO ID: [id number] Author: GAVI De León (Ct) Service: Radiology Author Type: Clinical Market Development Director Type: Progress Notes Filed: 04/04/2020 9:42 AM Note Text: Radiology Service Progress Note PATIENT NAME: Bo Monteiro DATE OF SERVICE: April 04, 2020 TIME: 9:42 AM PATIENT IDENTITY VERIFICATION COMPLETED USING TWO (2) IDENTIFIERS: Name and Date of confirmed by patient verbally and Name and Date of confirmed by identification band. FALL SCREENING: Has the patient had 2 falls in the last year or 1 fall with injury or currently using an Ambulatory Assistive Device (Walker, Cane, Wheelchair, Crutches, etc.)? No PATIENT GENDER DATA: Female. status: : No status: NO. PATIENT RELEVANT IMPLANT DATA REVIEWED: Not Applicable RADIOLOGY DEPARTMENT: Ultrasound PERIPHERAL IV DATA: Not applicable SIGNED BY: Caridad GAVI Ramey April 04, 2020 9:42 AM [facility] CNTHERAPYon 05-03-2018 CNTHERAPY OT/PT/Speech Visit (PTMDRG) -------BO MONTEIRO ([id number]) 1955 FDate Time Provider Department05/03/18 8:45 AM ROSSY WILSON (PT) PTMDRGEncounter Number: [id number] Time Provider Department [place]05/03/2018 8:45 AM [id number] WILSON (P*PTMDRG [facility] for Visit: Physical Therapy [503]Primary Visit Diagnosis:Dizziness [R42]Allergies As of Date: 05/03/2018(No Known Allergies)Date Reviewed: 03/20/2018Reviewed by: Sony HendricksonRn) BERNABE Faulkner - Fully AssessedPrescriptions as of 05/03/2018 Sig: AMLODIPINE 5 MG TABLET Take 1 tablet by mouth once d* CALCIUM 600 + D ORAL Take by mouth. MECLIZINE 25 MG TABLET Take 2 tablets by mouth twice* ASPIRIN 81 MG CHEWABLE TABLET aspirin 81 mg chewable tablet HYDROCODONE 5 MG-ACETAMINOPHE* Take 1 tablet by mouth every *Progress Notes:Rossy Wilson PT 05/03/2018 9:27 AM AddendumEpisode Visit Count: 2Therapist That Will Oversee The Plan Of Care: rossy Spencetart of Care Date: 04/24/18Onset Date: 03/25/18Plan of Care Certification Date: 04/24/18REHABILITATION AND SPORTS THERAPYPHYSICAL THERAPY TREATMENT NOTEASSESSMENT: Pt notes much improved since last session, but still with minorsx's. was negative for re-test under VNG of left PC BPPV, but positive onright. Repositioned with Coral. Tolerated well. Essentially negative re-test.Gave for home if sx's persist. The patient will continue to benefit fromcontinued skilled physical therapy to re-test VNG as appropriate next session,have not cleared HC yet but no indication of involvement at this time. Stillwith undershoot with saccades to right, question if related to continued activeBPPV.PLAN FOR NEXT VISIT:Re-test VNG as appropriate next session. Have not yet assessed HS, but noindicators of involvement thus farSUBJECTIVE: Very little sx's at night when lays down, not like before. Verybrief, 2/10 intensity. Improving each night. Feels like this can be last visitas well is as doing.OBJECTIVE MEASURES WITH LEVEL OF FUNCTION:Special Tests - VestibularSpontaneous Nystagmus: Not presentGaze-hold nystagmus: NegativeSmooth pursuit: (undershoots x 1 to right)Right Norman-Halpike Comments: immediate brief minor R torsion with sx's ++ :retest no sx's, slight L beat tendencyLeft John-Halpike Comments: negative allTREATMENT:Self-Fci Management:1: vestibular anatomy and mechanism of operation, monitor sx's, POC, R Coral ifsx's persistSkilled Intervention: Skilled judgment in the selection of proper modificationfor activity of daily living/home management based on clinical presentation,deficits, and needs.Provided written instruction for activities of daily living techniques tofacilitate proper performance and compliance.Canalith Repositionin: Coral R PC x 1; retest with repeat Coral; issued for home if reoccursSkilled Intervention: Professional judgment was used to determine specifictreatment interventions based on assessment of symptoms. Physically assistedpatient through each step of repositioning. Verbal and tactile cues provided topatient to assist in moving between each position of maneuver in correctsequence. Patient education including handouts provided regarding selfrepostitioning techniques to be performed at home. Instructed patient in postrepositioning procedures including upright 3-4 hours.Billing:[place]: Self Care / Home Management (60226): 1:1 time: 10 minutes (1 unit:8-22 mins)Canalith Repositioning (51409) 1 unit (untimed)Total time: 30 minutesAyesha Luo Version ------ Normal [facility] PROGRESSon 05-03-2018 Protein mass conc HNO ID: [id number] thor: Rossy (Pt) ReuschService: (none)Author Type: Physical TherapistType: Progress NotesFiled: 05/03/2018 9:27 AMNote Text:Episode Visit Count: 2Therapist That Will Oversee The Plan Of Care: rossy velázquezuschStart of Care Date: 04/24/18Onset Date: 03/25/18Plan of Care Certification Date: 04/24/18REHABILITATION AND SPORTS THERAPYPHYSICAL THERAPY TREATMENT NOTEASSESSMENT: Pt notes much improved since last session, but still withminor sx's. was negative for re-test under VNG of left PC BPPV, butpositive on right. Repositioned with Coral. Tolerated well. Essentiallynegative re-test. Gave for home if sx's persist. The patient willcontinue to benefit from continued skilled physical therapy to re-test VNGas appropriate next session, have not cleared HC yet but no indication ofinvolvement at this time. Still with undershoot with saccades to right,question if related to continued active BPPV.PLAN FOR NEXT VISIT:Re-test VNG as appropriate next session. Have not yet assessed HS, but noindicators of involvement thus farSUBJECTIVE: Very little sx's at night when lays down, not like before.Very brief, 2/10 intensity. Improving each night. Feels like this can belast visit as well is as doing.OBJECTIVE MEASURES WITH LEVEL OF FUNCTION:Special Tests - VestibularSpontaneous Nystagmus: Not presentGaze-hold nystagmus: NegativeSmooth pursuit: (undershoots x 1 to right)Right Norman-Halpike Comments: immediate brief minor R torsion with sx's ++: retest no sx's, slight L beat tendencyLeft John-Halpike Comments: negative allTREATMENT:Self-Fci Management:1: vestibular anatomy and mechanism of operation, monitor sx's, POC, REpley if sx's persistSkilled Intervention: Skilled judgment in the selection of propermodification for activity of daily living/home management based onclinical presentation, deficits, and needs.Provided written instruction for activities of daily living techniques tofacilitate proper performance and compliance.Canalith Repositionin: Coral R PC x 1; retest with repeat Coral; issued for home if reoccursSkilled Intervention: Professional judgment was used to determinespecific treatment interventions based on assessment of symptoms.Physically assisted patient through each step of repositioning. Verbal andtactile cues provided to patient to assist in moving between each positionof maneuver in correct sequence. Patient education including handoutsprovided regarding self repostitioning techniques to be performed at home.Instructed patient in post repositioning procedures including upright 3-4hours.Billing:[place]: Self Care / Home Management (24109): 1:1 time: 10 minutes (1unit: 8-22 mins)Canalith Repositioning (34367) 1 unit (untimed)Total time: 30 minutesRossy Wilson PT [facility] CNTHERAPYon 04-24-2018 CNTHERAPY OT/PT/Speech Visit (PTMDRG) -------BO MONTEIRO ([id number]) 1955 FDate Time Provider Department04/24/18 1:45 PM ROSSY WILSON (PT) PTMDRGEncounter Number: [id number] Time Provider Department [place]04/24/2018 1:45 PM [id number] WILSON (P*PTMDRG [facility] for Visit: PT Julissa [467] Patient Education [91]Primary Visit Diagnosis:Dizziness [R42]Allergies As of Date: 04/24/2018(No Known Allergies)Date Reviewed: 03/20/2018Reviewed by: Sony Zavala) BERNABE Faulkner - Fully AssessedPrescriptions as of 04/24/2018 Sig: AMLODIPINE 5 MG TABLET Take 1 tablet by mouth once d* CALCIUM 600 + D ORAL Take by mouth. MECLIZINE 25 MG TABLET Take 2 tablets by mouth twice* ASPIRIN 81 MG CHEWABLE TABLET aspirin 81 mg chewable tablet HYDROCODONE 5 MG-ACETAMINOPHE* Take 1 tablet by mouth every *Progress Notes:Rossy Wilson, KLEBER 04/25/2018 12:57 PM SignedEpisode Visit Count: 1Therapist That Will Oversee The Plan Of Care: rossy Spencetart of Care Date: 04/24/18Onset Date: 03/25/18Plan of Care Certification Date: 04/24/18Patient Identified by Name and Date of : YesREHABILITATION AND SPORTS THERAPYPHYSICAL THERAPY EVALUATIONPLAN OF CARE:Assessment: Bo Monteiro presents with the chief complaint of dizziness.She presents with impairments of decreased positional tolerance. She waspositive for left head thrust, slight spontaneous right beat tendency under VNG,intermittently undershoots with saccades, and was positive for left PC BPPV.Repositioned with left Coral which pt tolerated well. Retest much improved butstill with minor sx's and nystagmus and repeated VIDEO EDITING INTERN and issued for home if sx'spersist. She may benefit from skilled therapy services to resolve dizziness.Prognosis: ExcellentExcellent due to: current objective clinical presentation;good overall healthstatus;good support system/ coping skillsGoals for Episode of Care: created on 04/24/18 through 06/24/18Patient will decrease DHI score to less than 5/100 (evaluation: 26/100).Patient will have negative positional testing for BPPV.Patient will report resolved dizziness and back to 90% or greater function.Planned Interventions, Frequency, and Duration: Current Frequency: 1x/weekDuration: 8 weeksTotal Number of Visits Planned: 8Planned Treatment Interventions: Therapeutic exercise;Neuromuscularre-ed ucation;Manual therapy;Therapeutic activities;Self-care homemanagement;Patient/Fami ly/Caregiver Education;Canalith Repositioning ManeuversPLAN FOR NEXT VISIT: RE-test VNG and clear addtional canals as appropriatePatient demonstrates good understanding of plan of care and treatment. Theabove goals and plan of care were discussed and agreed upon by patient/family.SUBJECTIVE: Bo Monteiro is a 62 year old female seen today for About 1month ago room spinning even at rest and double vision. Went to ED CT scan,diagnosed as vertigo and given valium and antivert. Sx's were getting worse, sawPCP BP incresea with movement.Referred to ED. EKG abnormal in hospital. EKGnormal there but BP high. Did have MRI. PCP did note L inner ear reddness. MRIsinus infection L facial. No dizziness at rest when upright. With head tiltedback L with extn, or lyaing down or turning to left side. Spinning dizzinesslasts 5-10 sec. Did have round of antibiotics with no change. Is being treatedfor HBP. Denies neurologic sx's and ear sx's. Minor KRAFT frontal and suboccipitalsince dizziness.Relevant HistoryMedical Conditions: (HBP)OBJECTIVE MEASURES WITH LEVEL OF FUNCTION:Cervical Spine AROMCervical AROM determined by: (Cervical AROM WNL)Special Tests - VestibularSpecial Tests: Oculomotor;Positional TestingSpontaneous Nystagmus: Present (VNG slight R beat tendency, fixates)Ocular ROM: WNLGaze-hold nystagmus: (VNG:intermit R gaze minor R beat)Smooth pursuit: Horizontal, Vertical and Diagonal all WNLSaccadic eye movements: (consistently undershoots x 1 )Head Thrusts: Left positiveHead Shake: (negative all)Left John-Halpike Comments: ++ L torsional immediate brief upbeating nystagmusEducation:Educatio nLearning Preferences: Demonstration;ExplanationBa rriers: NoneLearning/educational needs: Home exercise program;Plan of CareEducation Provided: Yes, see treatment interventions for education providedEducation Provided To: PatientEducation Mode/Type: Explanation/Discussion;Perf ormanceTREATMENT:Evaluation EvaluationSelf-Fci Management:1: eval findings, POC, HEP and parameters, Home VIDEO EDITING INTERN-writtent hand outs if sx'spersistSkilled Intervention: Skilled judgment in the selection of proper modificationfor activity of daily living/home management based on clinical presentation,deficits, and needs.Canalith Repositionin: Coral for L PC BPPV; retest much improved with sx's and nystagmus but stillslight noted, repeated CRTSkilled Intervention: Professional judgment was used to determine specifictreatment interventions based on assessment of symptoms. Physically assistedpatient through each step of repositioning. Verbal and tactile cues provided topatient to assist in moving between each position of maneuver in correctsequence. Patient education including handouts provided regarding selfrepostitioning techniques to be performed at home. Instructed patient in postrepositioning procedures including upright 3-4 hours.Billing:[place]: Evaluation - Moderate Complexity (92675)Self Care / Home Management (27069): 1:1 time: 8 minutes (1 unit: 8-22 mins)Canalith Repositioning (60181) 1 unit (untimed)Total time: 45 minutesRossy Wilson PT -Letter TextRehabilitation and Sports [address] [place], [place] [address]Jnjmtbpwdeb Line: fax Line: Fao Cover LetterDate: 04/25/2018 Time: 12:55 PMTo: Callie Damon MDFrom: Rossy Wilson, PTNumber of pages (including this page): Comments: Please sign and return to fax number: Conf identiality NoticeThe documents accompanying this telecopy transmission contain confidentialinformation, belonging to the sender, that is legally privileged. Thisinformation is prohibited from disclosing this information to any otherparty.If you are not the intended recipient, you are hereby notified that anydisclosure, copying, distribution, or action taken in reliance of thecontents of these documents is strictly prohibited. If you have receivedthis telecopy in error, please notify the sender immediately and then destroythese copies.Rehabilitation and Sports [address] GonzalesOhio State Health SystemcarlottaJACKSON[place]IL[place], [place] [address]Woeatgmxfdv Line: Fax Line: Date: 04/25/2018 PLAN OF CARE CERTIFICATIONTo: Callie Damon MDFrom: Therapist: Rossy Wlison PTRE: Patient Certification/Recertificati on Patient name: Bo Monteiro [facility] review of the attached rehabilitation plan of care and ORIGINALsignature are required in order to comply with Payor: [employer] [place] [facility] [employer] /Plan: [employer] [place] [employer] / Product Type: Medicaid / regulations.The identified Physical Therapy PLAN OF CARE for Bo Monteiro is asfollows:Dizziness (primary encounter diagnosis)PLAN OF CARE:Assessment: Bo Monteiro presents with the chief complaint of dizziness.She presents with impairments of decreased positional tolerance. She waspositive for left head thrust, slight spontaneous right beat tendency underVNG, intermittently undershoots with saccades, and was positive for left PCBPPV. Repositioned with left Coral which pt tolerated well. Retest muchimproved but still with minor sx's and nystagmus and repeated VIDEO EDITING INTERN and issuedfor home if sx's persist. She may benefit from skilled therapy services toresolve dizziness.Prognosis: ExcellentExcellent due to: current objective clinical presentation;good overall healthstatus;good support system/ coping skillsGoals for Episode of Care: created on 04/24/18 through 06/24/18Patient will decrease DHI score to less than 5/100 (evaluation: 26/100).Patient will have negative positional testing for BPPV.Patient will report resolved dizziness and back to 90% or greater function.Planned Interventions, Frequency, and Duration: Current Frequency: 1x/weekDuration: 8 weeksTotal Number of Visits Planned: 8Planned Treatment Interventions: Therapeutic exercise;Neuromuscularre-ed ucation;Manual therapy;Therapeutic activities;Self-care homemanagement;Patient/Fami ly/Caregiver Education;Canalith RepositioningManeuversPLAN FOR NEXT VISIT: RE-test VNG and clear addtional canals as appropriatePatient demonstrates good understanding of plan of care and treatment. Theabove goals and plan of care were discussed and agreed upon bypatient/family.Provider AttestationI have reviewed the treatment plan for Bo Monteiro, CCF# [id number] for theperiod of 04/25/2018 -- 06/23/18, established on 04/25/2018.Provider signature: ____ Date: Please return only this signature form to:ATTN:[facility] [address] [place] [id number]: [phone]: [phone] [facility] PROGRESSon 04-24-2018 Protein mass conc HNO ID: [id number] thor: Rossy (Kleber) ReuschService: (none)Author Type: Physical TherapistType: Progress NotesFiled: 04/25/2018 12:57 PMNote Text:Episode Visit Count: 1Therapist That Will Oversee The Plan Of Care: rossy sebastianhStart of Care Date: 04/24/18Onset Date: 03/25/18Plan of Care Certification Date: 04/24/18Patient Identified by Name and Date of : YesREHABILITATION AND SPORTS THERAPYPHYSICAL THERAPY EVALUATIONPLAN OF CARE:Assessment: Bo Monteiro presents with the chief complaint ofdizziness. She presents with impairments of decreased positionaltolerance. She was positive for left head thrust, slight spontaneous rightbeat tendency under VNG, intermittently undershoots with saccades, and waspositive for left PC BPPV. Repositioned with left Coral which pt toleratedwell. Retest much improved but still with minor sx's and nystagmus andrepeated VIDEO EDITING INTERN and issued for home if sx's persist. She may benefit fromskilled therapy services to resolve dizziness.Prognosis: ExcellentExcellent due to: current objective clinical presentation;good overallhealth status;good support system/ coping skillsGoals for Episode of Care: created on 04/24/18 through 06/24/18Patient will decrease DHI score to less than 5/100 (evaluation: 26/100).Patient will have negative positional testing for BPPV.Patient will report resolved dizziness and back to 90% or greaterfunction.Planned Interventions, Frequency, and Duration: Current Frequency:1x/weekDuration: 8 weeksTotal Number of Visits Planned: 8Planned Treatment Interventions: Therapeutic exercise;Neuromuscularre-ed ucation;Manual therapy;Therapeutic activities;Self-care homemanagement;Patient/Fami ly/Caregiver Education;Canalith RepositioningManeuversPLAN FOR NEXT VISIT: RE-test VNG and clear addtional canals as appropriatePatient demonstrates good understanding of plan of care and treatment.The above goals and plan of care were discussed and agreed upon bypatient/family.SUBJECTIVE : Bo Monteiro is a 62 year old female seen today for About1 month ago room spinning even at rest and double vision. Went to ED CTscan, diagnosed as vertigo and given valium and antivert. Sx's weregetting worse, saw PCP BP incresea with movement.Referred to ED. EKGabnormal in hospital. EKG normal there but BP high. Did have MRI. PCP didnote L inner ear reddness. MRI sinus infection L facial. No dizziness atrest when upright. With head tilted back L with extn, or lyaing down orturning to left side. Spinning dizziness lasts 5-10 sec. Did have roundof antibiotics with no change. Is being treated for HBP. Denies neurologicsx's and ear sx's. Minor KRAFT frontal and suboccipital since dizziness.Relevant HistoryMedical Conditions: (HBP)OBJECTIVE MEASURES WITH LEVEL OF FUNCTION:Cervical Spine AROMCervical AROM determined by: (Cervical AROM WNL)Special Tests - VestibularSpecial Tests: Oculomotor;Positional TestingSpontaneous Nystagmus: Present (VNG slight R beat tendency, fixates)Ocular ROM: WNLGaze-hold nystagmus: (VNG:intermit R gaze minor R beat)Smooth pursuit: Horizontal, Vertical and Diagonal all WNLSaccadic eye movements: (consistently undershoots x 1 )Head Thrusts: Left positiveHead Shake: (negative all)Left John-Halpike Comments: ++ L torsional immediate brief upbeatingnystagmusEducation :EducationLearning Preferences: Demonstration;ExplanationBa rriers: NoneLearning/educational needs: Home exercise program;Plan of CareEducation Provided: Yes, see treatment interventions for educationprovidedEducation Provided To: PatientEducation Mode/Type: Explanation/Discussion;Perf ormanceTREATMENT:Evaluation EvaluationSelf-Fci Management:1: eval findings, POC, HEP and parameters, Home VIDEO EDITING INTERN-writtent hand outs ifsx's persistSkilled Intervention: Skilled judgment in the selection of propermodification for activity of daily living/home management based onclinical presentation, deficits, and needs.Canalith Repositionin: Coral for L PC BPPV; retest much improved with sx's and nystagmus butstill slight noted, repeated CRTSkilled Intervention: Professional judgment was used to determinespecific treatment interventions based on assessment of symptoms.Physically assisted patient through each step of repositioning. Verbal andtactile cues provided to patient to assist in moving between each positionof maneuver in correct sequence. Patient education including handoutsprovided regarding self repostitioning techniques to be performed at home.Instructed patient in post repositioning procedures including upright 3-4hours.Billing:[place]: Evaluation - Moderate Complexity (33053)Self Care / Home Management (21151): 1:1 time: 8 minutes (1 unit: 8-22mins)Canalith Repositioning (68624) 1 unit (untimed)Total time: 45 minutesAllmyra Wilson, PT Normal [facility] Basic Metabolic Panlon 03-21 Anion gap 3 molar conc 13 mmol/L Normal 9-18 [facility] Comment on above: Performed By: #### C KEYSHA BMP, MG1 ####[facility] [address] [place] [address] Calcium mass conc 8.6 mg/dL Normal 8.5-10.2 [facility] Comment on above: Performed By: #### C BC BMP, MG1 ####[facility] [address] [place] [address] Chloride molar conc 106 mmol/L High 97-105 [facility] Comment on above: Performed By: #### C BC BMP, MG1 ####[facility] [address] [place] [address] CO2 molar conc 24 mmol/L Normal 22-30 [facility] Comment on above: Performed By: #### C BC BMP, MG1 ####[facility] [address] [place] [address] Creatinine mass conc 0.86 mg/dL Normal 0.58-0.96 [facility] Comment on above: Performed By: #### C BC BMP, MG1 ####[facility] [address] [place] [address] eGFR- Amer. >60 Normal [facility] Comment on above: Performed By: #### C BC BMP, MG1 ####[facility] [facility] [address] [place] [address] GFR/1.73 sq M predicted among non-blacks MDRD vol rate/area (S/P/Bld) mL/min/{1.73_m2} Normal [facility] Comment on above: Result Comment: eGFR (Estimated GFR) Units of measure: mL/min/1.73 meters squaredeGFR is derived from the reexpressed MDRD Study equation using the following parameters: serum creatinine, age, gender and race. The creatinine assay has been calibrated to be traceable to IDMS.An eGFR <60 mL/min/1.73m2 for >3 months is consistent with chronic kidney disease. Refer to KDOQI guidelines for clinical interpretation.In patients with unstable renal function, e.g. those with acute kidney injury, the eGFR may not accurately reflect actual GFR. Performed By: #### C ROSAURA CHOPRA MG1 ####[facility] [address] [place] [address] Glucose mass conc 94 mg/dL Normal 74-99 [facility] Comment on above: Result Comment: The [place] Diabetes Association (ADA) provides guidance for cutoff values for fasting glucose and random glucose. The ADA defines fasting as no caloric intake for at least 8 hours. Fasting plasma glucose results between 100 to 125 mg/dL indicate increased risk for diabetes (prediabetes).Fasting plasma glucose results greater than or equal to 126 mg/dL meet the criteria for diagnosis of diabetes. In the absence of unequivocal hyperglycemia, results should be confirmed by repeat testing. In a patient with classic symptoms of hyperglycemia or hyperglycemic crisis, random plasma glucose results greater than or equal to 200 mg/dL meet the criteria for diagnosis of diabetes.Reference: Standards of Medical Care in Diabetes 2016, [place] Diabetes Association. Diabetes Care. 2016.39(Suppl 1). Performed By: #### C ROSAURA CHOPRA, MG1 ####[facility] [address] [place] [id number] Potassium molar conc 3.9 mmol/L Normal 3.7-5.1 [facility] Comment on above: Performed By: #### C ROSAURA CHOPRA MG1 ####[facility] [address] [place] [address] Sodium molar conc 143 mmol/L Normal 136-144 [facility] Comment on above: Performed By: #### C ROSAURA CHOPRA, MG1 ####[facility] [address] [place] [address] Urea nitrogen mass conc 15 mg/dL Normal 7-21 [facility] Comment on above: Performed By: #### C BC, BMP, MG1 ####[facility] [address] [place] [address] CASE MANAGEMon 03-21-2018 CASE MANAGEM HNO ID: [id number] thor: Elisa Varela (Sw)Service: Care ManagementAuthor Type: Social WorkerType: Care Mgt Progress NoteFiled: 03/21/2018 10:15 AMNote Text:CARE MANAGEMENT PROGRESS NOTESERVICE DATE: 03/21/2018SERVICE TIME: 10:10 AM LOS: 0 daysPt remains with no skilled needs. PCP tasked. Family to transport. CM tofollow and support.SIGNATURE: SHAWN Workman PATIENT NAME: Bo MonteiroDATE: March 21, 2018 : 10:10 AM PAGER/CONTACT #: [phone] Normal [facility] CBCon 03-21-2018 Erythrocyte distribution width Auto Ratio (RBC) 13.5 % Normal 11.5-15.0 [facility] Comment on above: Performed By: #### C BC, BMP, MG1 ####[facility] [address] [place] [address] Hematocrit Auto Volume Fraction (Bld) 45.1 % Normal 36.0-46.0 [facility] Comment on above: Performed By: #### C BC, BMP, MG1 ####[facility] [address] [place] [address] Hemoglobin mass conc (Bld) 14.8 g/dL Normal 11.5-15.5 [facility] Comment on above: Performed By: #### C BC, BMP, MG1 ####[facility] [address] [place] [address] MCH Auto Entitic mass (RBC) 30.3 pG Normal 26.0-34.0 [facility] Comment on above: Performed By: #### C BC, BMP, MG1 ####[facility] [address] [place] [address] MCHC Auto mass conc (RBC) 32.8 g/dL Normal 30.5-36.0 [facility] Comment on above: Performed By: #### C BC, BMP, MG1 ####[facility] [address] [place] [address] MCV Auto Entitic volume (RBC) 92.4 fL Normal 80.0-100.0 [facility] Comment on above: Performed By: #### C BC, BMP, MG1 ####[facility] [address] [place] [address] Platelet mean volume Auto Entitic volume (Bld) 9.9 fL Normal 9.0-12.7 [facility] Comment on above: Performed By: #### C KEYSHA, BMP, MG1 ####[facility] [address] [place] [address] Platelets Auto #/vol (Bld) 238 10*3/uL Normal 150-400 [facility] Comment on above: Performed By: #### C KEYSHA, BMP, MG1 ####[facility] [address] [place] [address] RBC Auto #/vol (Bld) 4.88 10*6/uL Normal 3.90-5.20 [facility] Comment on above: Performed By: #### C KEYSHA, BMP, MG1 ####[facility] [address] [place] [address] WBC Auto #/vol (Bld) 6.68 10*3/uL Normal 3.70-11.00 [facility] Comment on above: Performed By: #### C KEYSHA, BMP, MG1 ####[facility] [address] [place] [address] CNCOon 03-21-2018 CNCO Letter TextAugust 2017Therteresa Eyudalo[address]453 [facility] [address]Tzoc Ms. Monteiro,The nurses and staff of [facility] hope this letter finds you feelingwell and progressing in your recovery. Our staff would like to thank you fortrusting and choosing us for your health care needs. It was an honor for usto provide your nursing care. We know that placing our Patients First andmaintaining a culture of continuous improvement each and every day, areessential to the success of our organization.I hope your stay with us has been positive. We want to hear from you. If youhave any comments, questions or concerns about your hospital stay, pleasefeel free to contact me, Jenna Plaza RN ([phone]) or email me at,[email or web address] hamiltony, you will receive a survey in the mail asking you to rate thecare you received while in the hospital. Please take the time to complete andsend back the survey, as it is essential to our continued success. Ipersonally review all the results and would appreciate your feedback.Thank you in advance for your participation and thank you [facility].Sincerely,Nurse Intake Rn: Jenna Plaza RN ([phone])[facility] Unit: [address] [place] [address] 03-21-2018 CN HNO ID: [id number] thor: Callie Jarvise: [facility] MedicineAuthor Type: PhysicianType: Discharge SummariesFiled: 03/21/2018 12:56 PMNote Text:DISCHARGE SUMMARYPATIENT NAME: Bo Monteiro ADMISSION DATE: 03/19/2018MRN: [id number] DISCHARGE DATE: 03/21/2018ATTENDING PHYSICIAN: Callie Byers FOR HOSPITALIZATION: dizzinessDIAGNOSIS: Active Problems: Dizziness Hypertensive urgency Hematuria, undiagnosed causeResolved Problems: * No resolved hospital problems. *OPERATIONS DURING HOSPITALIZATION: NonePROCEDURES DURING HOSPITALIZATION: No procedures performedHOSPITAL COURSE:Active Problems: Dizziness Overview: -ct head and MRI brain were negative. -pt complaining of episodic vertigo. -Norman halpike maneuver performed at bedside was positive. -Pt taught eppley maneuver by PT and given referral for outpatient PT Hypertensive urgency Overview: Will start the patient on amlodipine 5 mg . Follow up with PCP Hematuria, undiagnosed cause Overview: Pt did have one episode of pinkish urine while in thehospital and did have hgb, RBC and wbc and bacteria in her urine. However she was asymptomatic from it without any fevers or chills. Needs outpatient repeat urinalysis.Resolved Problems: * No resolved hospital problems. *LABS AND PROCEDURES PENDING AT DISCHARGE: No pending results.CONSULTING TEAMS DURING HOSPITALIZATION: Neurology: Dr JerniganPATIENT CONDITION AT DISCHARGE: StableDISCHARGE DISPOSITION: Home/Self CareDischarge Physical Exam:VITAL SIGNS: BP 138/71 Pulse 70 Temp 36.9 ?C (98.4 ?F) (Oral) Resp 18 Ht 160 cm (5' 3) Wt 83.7 kg (184 lb 8.4 oz) SpO2 95% BMI 32.69 kg/m?GENERAL: Alert, no distress, cooperativeLUNGS: Lungs clear to auscultation, Good diaphragmatic excursionCARDIAC: Normal S1 and S2; no rubs, murmurs, or gallopsABDOMEN: Abdomen soft, non-tender, BS normal, No masses or organomegalyEXTREMITIES: Extremities normal, no deformities, edema, clubbing or skindiscoloration. Good capillary refill., No ulcersNEURO: Grossly normal cognition, motor function, and cranial nervesIII-XIIINFORMATION PROVIDED TO PATIENT:you were admitted to the hospital with the complaint of Dizziness, you hada ct scan and an MRI with evaluation by a neurologist and no stroke wasfound. Your symptoms were due to high blood pressure and BPPV which is aninner ear problem. You were started on a medication for your BP and seenby physical therapy. You were taught excercises to help with yourDizziness and you were given referral for outpatient physical therapy aswell.You had one episode of pinkish urine which resolved on its own. You needto follow up with your PCP for your BP monitoring and a repeat urinalysis.OPERATIONS PERFORMED WHILE IN THE HOSPITAL: NoneIMPORTANT TEST/PROCEDURES:CT BRAIN:RESULT:?Post-operativ e change: ?None.?Acute change: ? No evidence of an acute infarct or other acute parenchymalprocess.?Hemorrh age: ? ?No evidence of acute intracranial hemorrhage.?Mass Lesion / Mass Effect: ? There is no evidence of an intracranial massorextraaxial fluid collection. ?No significant mass effect.?Chronic change: ? None apparent.?Parenchyma: ?There is no significant volume loss. ?The brain parenchyma isotherwise within normal limits for age.?Ventricles: ? The ventricles are within normal limits of size andconfigurationfor age.?Paranasal sinuses and skull base: ?The visualized paranasal?sinuses aregrosslyclear. ? ?The skull base and imaged soft tissues are unremarkable.???IMPRESSION: ??No acute intracranial abnormality.MRI BRAIN:IMPRESSION:No acute intracranial process. ?Overall unremarkable examinationDISCHARGE MEDICATION:Current Discharge Medication ListSTART taking these medicationsamLODIPine (NORVASC) 5 mgTake 5 mg by mouth once daily.Qty: 30 tablet Refills: 1CONTINUE these medications which have NOT CHANGEDcalcium carbonate/vitamin D3 (CALCIUM 600 + D ORAL)Take by mouth.meclizine (ANTIVERT) 50 mgTake 50 mg by mouth twice daily.Qty: 30 tablet Refills: 0aspirin 81 mg chewable tabletaspirin 81 mg chewable tabletHYDROcodone-acetamino phen (NORCO) 1 tabletTake 1 tablet by mouth every 6 hours as needed.Qty: 12 tablet Refills: 0STOP taking these medicationsdiazePAM (VALIUM) 5 mgComments:Reason for Stopping:FUTURE APPOINTMENTS:Follow Up with PCP: Loan Dias NPDischarge Information Row Name ED to Hosp-Admission (Current) from 03/19/2018 in [facility] Medical Follow-Up Appointment Specialty PCP Provider Name Loan Dias NP Address [address], [place] [address] Additonal Instructions Patient should bring the following to appointment:Picture ID, Insurance Card, Copay (if applicable), Medications/Med List.Please provide a minimum of 24 hours' notice forcancelations/reschedulin g. Please arrive 15 minutes prior to yourappointment.TIME OF CARE (Use first blank if not applicable): TIME OF CARE: DischargeManagement: I personally spent less than 30 minutes involved in thedischarge management of this patient.SIGNATURE: Callie Damon MD PATIENT NAME: Bo MonteiroDATE: March 21, 2018 : 12:35 PM PAGER/CONTACT #: [phone] Normal [facility] Magnesiumon 03-21-2018 Magnesium mass conc 2.1 mg/dL Normal 1.7-2.3 [facility] Comment on above: Performed By: #### C BC, BMP, MG1 ####[facility] [address] [place] [phone] NURSING PROGon 03-21-2018 Protein mass conc HNO ID: [id number] thor: Sony (Rn) THERESA Faulknerervice: (none)Author Type: Registered NurseType: Nursing Progress NoteFiled: 03/21/2018 6:47 AMNote Text: Nursing Progress NotePatient Name: Bo MonteiroMRN: [id number] [facility]0243/[id number]____ Daily Note:1900: Patient is resting in bed talking with family.2100: Pt is resting in bed with family, sinus on tele.2300: pt observed asleep.0100: Pt observed asleep.0300: Pt observed asleep.0500: Pt observed sleeping, sinus on tele.This note was completed by: Sony Faulkner RN [facility] THERAPY NTon 03-21-2018 THERAPY NT HNO ID: [id number] thor: Ruby (Pt) NaplesService: Physical TherapyAuthor Type: Physical TherapistType: Therapy (PT/OT/Speech/Resp)Filed: 03/21/2018 10:32 AMNote Text:Physical Therapy EvaluationSERVICE DATE: 03/21/2018SERVICE TIME: 0855 to 09ROOM: [id number] Discharge Disposition: Outpatient Physical TherapyRecommended Discharge Disposition Comments: vestibular rehab - patientmuch improved however still dizzyRecommended Discharge Equipment: No equipment needs anticipatedPT Recommendations to Nursing: Ambulate without device;To bathroom;Inhalls;Transfer to/from chair;OOB for Meals;With assist of 1 person (w gaitbelt)PT 6 Clicks Score: 24Precautions/Activity Restrictions: Fall RiskPrecaution/Activity Restriction Comments: standard precautionsASSESSMENT :Patient presents with dizziness, decreased activity tolerance anddecreased balance/safety with elevated fall risk. Patient + John HallpikeL and responds well with Coral maneuver however still slight dizziness andheadache. Patient ind with HEP to address at home however would highlyrecommend OP PT for further more detailed assessment and follow up.Patient CGA initially with mobility however much improved after treatmentwith progression to SBA/S. No additional acute PT indicated at this time.Patient Disposition at Start of Session: Supine in Bed;Call Negron in ReachPatient Disposition at End of Session: Supine in Bed;Call Negron in ReachTolerated Full SessionPhysical Therapy Problem List: Safety Deficits;Decreased ActivityTolerance;Decreased Strength;Functional Mobility Impairment;BalanceImpaired; Other: See Comment (dizziness)Patient /Caregiver Goals: Go HomeGoals for Plan of Care:Able to perform HEP with: Modified Independent (ind w HEP for dizzinessand visual scanning w handout)Transfer supine to/from sit with: Independent (to safely sit EOB withoutbed adjustments and w/o dizziness)Transfer sit to/from stand with: SupervisionAmbulate with: SupervisionDistance: 150 x 1Device: No DeviceGoal: Patient demonstrates good balance with functional progressin todecrease risk of fallsProgress Toward Goals: Progressing as expectedRehab Potential: GoodPLAN:Treatment Frequency (times per week): Discontinue Therapy ServicesReasons Therapy Services Discontinued: Goals met Current admissionTreatment Interventions: Education;Self Care / Home Management;EnergyConservati on Training;Strengthening;Func tional Mobility Training;BalanceTraining;Ne uromuscular Re-educationPlan of Care developed with: PatientTREATMENT INTERVENTIONS:Therapy Diagnosis: Reduced mobility-otherInterventions Provided: Evaluation;Therapeutic Activity (93273);CanalithRepositioni ng (50112)$ Evaluation-Low (18975) Billed Units: 1 unitTherapeutic Activity (64025) Treatment Minutes: 232 unitsSkilled Intervention(s): Instructed patient in sit to supine using safe,effective techniqueInstructed patient in supine to and from sit pushing with upperextremities to sit upInstruction in stand to sit technique with lower extremities touchingchair/bed and reaching back for surfaceInstruction in sit to and from stand technique with proper hand placementand body positioning at edge of bed/chairInstruction and review of HEP to address dizziness Coral L with handoutissued and visual exercises VOR 1.Education to continue with functional mobility and avoid restricting headand eye movement. Pause with change of positions with dizziness forsafety.Education of benefit of mobility to prevent decline and work towardsfunctional/home going goals.Education in use of call light to get up 100% of the timeEducation in discharge recommendation and rationale - OP PT, educationregarding current acute PT POC and anticipated OP progression andrationaleCanalith Repositioning (33985)$ Canalith Repositioning (69140) Billed Units: 1 unitSkilled Intervention(s): Professional judgment was used to determinespecific treatment interventions based on assessment of symptoms. Verbaland tactile cues provided to patient to assist in moving between eachposition of maneuver in correct sequence.Total Timed Code Treatment Minutes: 23Total Treatment Time (minutes): 55FUNCTIONAL G CODE:PT 6 Clicks Score: 24 (03/21/18 0855)Mobility: Walking and Moving Around Current Status (G8978): ()Mobility: Walking and Moving Around Goal Status (G8979): ()Mobility: Walking and Moving Around Discharge Status (G8980): ()Based on clinical assessment and the score on the 6 Clicks FunctionalAssessment Tool, the G code and corresponding severity modifiers aredocumented above.SUBJECTIVE:Current Hospital Course: Chart reviewed; Patient is a 62 year old female.Reason for Physical Therapy Consult : Patient presents 03/19/18 withdizziness and HTN. Patient admitted observation with admission Dx-dizziness. Patient referred to PT for progressive mobility protocolBPPV.Relevant Past Medical History: nonePatient Report: Patient agreeable to PT, cleared for mobility by nursing.Noted dizziness at rest and mobility at onset with very slight dizzinessafter treatment however noted KRAFT and patient calling nursing formedication.Home EnvironmentPatient Lives With: Significant OtherAssistance Available: 24 HourEntry To Home: No StairsNumber Of Stairs To Bed/Bath: 0 (first floor set up)Tub/Shower Type: accessible walk in shower with grab bar and shower chairLaundry: first floor laundryEquipment Owned: Standard WalkerPrior Functional Level: Within Functional Limits (ind w amb w/odevice,ADL/IADL,+drives, denies falls)OBJECTIVE: Range Of Motion: Within Functional LimitsStrength: Within Functional Limits ExceptRight Lower Extremity Strength Comments: hip flexion 4-/5, knee flexion 4to 4+/5, knee extension 4/5, ankle DF 4+/5Left Lower Extremity Strength Comments: hip flexion 4-/5, knee flexion 4to 4+/5, knee extension 4/5, ankle DF 4+/5CURRENT FUNCTIONAL STATUS:Current Functional Mobility Assist Level Additional InformationRolling IndependentSupine to Sit Contact Guard Assistance (HOB flat, no rail. reaches forexternal support w dizziness) CGA initially and during Coral (2 trials)however after Coral only required S.Sit to Supine Stand By Assistance (HOB flat, no rail)Scooting SupervisionSit to Stand Stand By Assistance (from lowered EOB without device)Stand to Sit Stand By Assistance (from lowered EOB without device)Bed to ChairToilet/CommodeGait Contact Guard Assistance (1st trial, SBA 2nd trial) Gait Device: None Gait Distance (feet): 150 x 22nd attempt after Coral maneuverStairs Other: See Comment (NA)Curb StepCar TransferGeneral Gait Deviations: Celi decreased;Other: See comment (guardedposture,1st attempt reaches for external support) *Gait belt donned prior to OOB activity and ambulationBalance: Static Sitting;Dynamic Sitting;Static Standing;Dynamic StandingStatic Sitting Balance: Modified IndependentDynamic Sitting Balance: IndependentStatic Standing Balance: SupervisionDynamic Standing Balance: Stand By AssistancePlease see discipline specific clinical documentation flowsheet forcomplete details for this therapy evaluation/treatment.SIGNAT URE: Ruby Leavitt PT PATIENT NAME: Bo TarangoTE: March 21, 2018 : 10:20 AM Normal [facility] Urinalysison 03-21-2018 Bilirubin, Urine Negative Normal Negative [facility] Comment on above: Performed By: #### U A, UAMIC ####[facility] [address] [place] [address] Clarity Clear Normal Clear [facility] Comment on above: Performed By: #### U A, UAMIC ####[facility] [address] [place] [phone] Color Yellow Normal Yellow [facility] Comment on above: Performed By: #### U A, UAMIC ####[facility] [address] Glucose Ql (U) Negative Normal Negative [facility] Comment on above: Performed By: #### U A, UAMIC ####[facility] [address] [place] [address] Hemoglobin/Blood,Ur Trace Critically abnormal Negative [facility] Comment on above: Performed By: #### U A, UAMIC ####[facility] [address] [place] [address] Ketones Ql (U) Negative Normal Negative [facility] Comment on above: Performed By: #### U A, UAMIC ####[facility] [address] [place] [address] Leukest Small Critically abnormal Negative [facility] Comment on above: Performed By: #### U A, UAMIC ####[facility] [address] [place] [address] Nitrites Negative Normal Negative [facility] Comment on above: Performed By: #### U A, UAMIC ####[facility] [address] [place] [address] pH 7.0 Normal 5.0-8.0 [facility] Comment on above: Performed By: #### U A, UAMIC ####[facility] [address] [place] [address] Protein, Urine Negative Normal Negative [facility] Comment on above: Performed By: #### U A, UAMIC ####[facility] [address] [place] [address] Specific Huger, Ur <=1.005 Normal 1.001-1.029 [facility] Comment on above: Performed By: #### U A, UAMIC ####[facility] [address] [place] [address] Urobilinogen 0.2 Normal 0.2-1.0 [facility] Comment on above: Performed By: #### U A, UAMIC ####[facility] [address] [place] [address] Urine Microscopic (FOR LAB U SE ONLY)on 03-21-2018 Bacteria Few Critically abnormal 0 [facility] Comment on above: Performed By: #### U A, UAMIC ####[facility] [address] [place] [address] Cast SEE COMMENT Normal 0 [facility] Comment on above: Result Comment: 0 Performed By: #### U A, UAMIC ####[facility] [address] [place] [address] Epithelial Cells SEE COMMENT Normal [facility] Comment on above: Result Comment: 0-5S quamous Epithelial Cells Performed By: #### U A UAMIC ####[facility] [address] [place] [address] INR Coag RelTime (Bld) 3-5 Criticall y abnormal 0-3 [facility] Comment on above: Performed By: #### U A, UAMIC ####[facility] [address] [place] [address] WBC 5-10 Critically abnormal 0-5 [facility] Comment on above: Performed By: #### U A UAMIC ####[facility] [address] [place] [address] Basic Metabolic Panlon 03-20 Anion gap 3 molar conc 12 mmol/L Normal 9-18 [facility] Comment on above: Performed By: #### C BC BMP, MG1 ####[facility] [address] [place] [address] Calcium mass conc 9.0 mg/dL Normal 8.5-10.2 [facility] Comment on above: Performed By: #### C BC, BMP, MG1 ####[facility] [address] [place] [address] Chloride molar conc 106 mmol/L High 97-105 [facility] Comment on above: Performed By: #### C BC, BMP, MG1 ####[facility] [address] [place] [address] CO2 molar conc 26 mmol/L Normal 22-30 [facility] Comment on above: Performed By: #### C BC, BMP, MG1 ####[facility] [address] [place] [address] Creatinine mass conc 0.87 mg/dL Normal 0.58-0.96 [facility] Comment on above: Performed By: #### C BC, BMP, MG1 ####[facility] [address] [place] [address] eGFR- Amer. >60 Normal [facility] Comment on above: Performed By: #### C BC, BMP, MG1 ####[facility] [address] [place] [address] GFR/1.73 sq M predicted among non-blacks MDRD vol rate/area (S/P/Bld) mL/min/{1.73_m2} Normal [facility] Comment on above: Result Comment: eGFR (Estimated GFR) Units of measure: mL/min/1.73 meters squaredeGFR is derived from the reexpressed MDRD Study equation using the following parameters: serum creatinine, age, gender and race. The creatinine assay has been calibrated to be traceable to IDMS.An eGFR <60 mL/min/1.73m2 for >3 months is consistent with chronic kidney disease. Refer to KDOQI guidelines for clinical interpretation.In patients with unstable renal function, e.g. those with acute kidney injury, the eGFR may not accurately reflect actual GFR. Performed By: #### C ROSAURA CHOPRA MG1 ####[facility] [address] [place] [address] Glucose mass conc 84 mg/dL Normal 74-99 [facility] Comment on above: Result Comment: The [place] Diabetes Association (ADA) provides guidance for cutoff values for fasting glucose and random glucose. The ADA defines fasting as no caloric intake for at least 8 hours. Fasting plasma glucose results between 100 to 125 mg/dL indicate increased risk for diabetes (prediabetes).Fasting plasma glucose results greater than or equal to 126 mg/dL meet the criteria for diagnosis of diabetes. In the absence of unequivocal hyperglycemia, results should be confirmed by repeat testing. In a patient with classic symptoms of hyperglycemia or hyperglycemic crisis, random plasma glucose results greater than or equal to 200 mg/dL meet the criteria for diagnosis of diabetes.Reference: Standards of Medical Care in Diabetes 2016, [place] Diabetes Association. Diabetes Care. 2016.39(Suppl 1). Performed By: #### C ROSAURA CHOPRA, MG1 ####[facility] Bydyktpumo6148 [address] Potassium molar conc 3.9 mmol/L Normal 3.7-5.1 [facility] Comment on above: Performed By: #### C ROSAURA CHOPRA, MG1 ####[facility] Eqcrvpakvm5875 [address] Sodium molar conc 144 mmol/L Normal 136-144 [facility] Comment on above: Performed By: #### C ROSAURA CHOPRA, MG1 ####[facility] [address] [place] [phone] Urea nitrogen mass conc 12 mg/dL Normal 7-21 [facility] Comment on above: Performed By: #### ROSAURA OLMEDO MG1 ####[facility] [address] [place] [address] CBCon 03-20-2018 Erythrocyte distribution width Auto Ratio (RBC) 13.5 % Normal 11.5-15.0 [facility] Comment on above: Performed By: #### ROSAURA OLMEDO MG1 ####[place] [address] Hematocrit Auto Volume Fraction (Bld) 44.6 % Normal 36.0-46.0 [facility] Comment on above: Performed By: #### ROSAURA OLMEDO MG1 ####[place] [address] Hemoglobin mass conc (Bld) 14.8 g/dL Normal 11.5-15.5 [facility] Comment on above: Performed By: #### ROSAURA OLMEDO MG1 ####[place] [address] MCH Auto Entitic mass (RBC) 30.9 pG Normal 26.0-34.0 [facility] Comment on above: Performed By: #### ROSAURA OLMEDO MG1 ####[place] [address] MCHC Auto mass conc (RBC) 33.2 g/dL Normal 30.5-36.0 [facility] Comment on above: Performed By: #### ROSAURA OLMEDO MG1 ####[place] [address] MCV Auto Entitic volume (RBC) 93.1 fL Normal 80.0-100.0 [facility] Comment on above: Performed By: #### ROSAURA OLMEDO MG1 ####[place] [address] Platelet mean volume Auto Entitic volume (Bld) 10.1 fL Normal 9.0-12.7 [facility] Comment on above: Performed By: #### ROSAURA OLMEDO, MG1 ####[place] [address] Platelets Auto #/vol (Bld) 220 10*3/uL Normal 150-400 [facility] Comment on above: Performed By: #### C ROSAURA CHOPRA, MG1 ####[facility] [address]xsf[address]mi[address] [place] [address] RBC Auto #/vol (Bld) 4.79 10*6/uL Normal 3.90-5.20 [facility] Comment on above: Performed By: #### C ROSAURA CHOPRA, MG1 ####[facility] [address] [place] [address] WBC Auto #/vol (Bld) 5.66 10*3/uL Normal 3.70-11.00 [facility] Comment on above: Performed By: #### C ROSAURA CHOPRA, MG1 ####[facility] [address] [place] [address] CONSULTon 03-20-2018 CONSULT HNO ID: [id number] thor: Rio Newmane: NeurologyAuthor Type: PhysicianType: ConsultsFiled: 03/20/2018 2:06 PMNote Text:NEUROLOGY CONSULT NOTEREFERRING PHYSICIAN: Raul ParkAccompanied by: SpouseCC: vertigoHxCC:62 year old otherwise healthy female who presents for evaluation ofvertigo. Patient noticing dizziness for the past 4-5 days. Describes assometimes spinning but other times feels fullness behind her eyes and likethe world is going in and out. Denies lightheadedness and presyncope.Definitely triggered by movement but sometimes happens when still. BPcheck at home was 160 systolic which is high for her. Presented to [facility], treated as vertigo, prescribed Ativert and Valium and sent home whichdid not help her symptoms, made her feel drowsy. Followed up with PCP whoperformed orthostatics that increased going from laying to standing. HadEKG. Send to [place] ED. Strong family history of stroke so concerned. BPin ED was 200s.Currently still with episodes of vertigo that last a few seconds. Nonausea or vomiting associated. Admits to intermittent episodes of diplopiawhich seem to be associated with taking Antivert.On further neurologic questioning, the patient denies new headaches, neckor back pain. No new focal weakness, numbness or paresthesias. Nodysarthria, dysphonia or dysphagia. No new imbalance, frequent falls orincoordination.RECENT LABS:Component Latest Ref Rng AND Units 03/19/2018 03/19/2018 03/19/2018 03/20/2018 4:59 PM 5:00 PM 5:57 PMWBC 3.70 - 11.00 k/uL 8.41 5.66RBC 3.90 - 5.20 m/uL 5.03 4.79Hemoglobin 11.5 - 15.5 g/dL 15.4 14.8Hematocrit 36.0 - 46.0 % 46.4 (H) 44.6MCV 80.0 - 100.0 fL 92.2 93.1MCH 26.0 - 34.0 pG 30.6 30.9MCHC 30.5 - 36.0 g/dL 33.2 33.2RDW-CV 11.5 - 15.0 % 13.5 13.5Platelet Count 150 - 400 k/uL 255 220MPV 9.0 - 12.7 fL 10.0 10.1Neut% % 62.3Abs Neut (ANC) 1.45 - 7.50 k/uL 5.24Lymph% % 25.2Abs Lymph 1.00 - 4.00 k/uL 2.12Mono% % 7.7Abs Marinette <0.87 k/uL 0.65Eosin% % 3.7Abs Eosin <0.46 k/uL 0.31Baso% % 1.1Abs Baso <0.11 k/uL 0.09Protein, Total 6.3 - 8.0 g/dL 7.3Albumin 3.9 - 4.9 g/dL 4.6Calcium 8.5 - 10.2 mg/dL 9.6 9.0Bilirubin, Total 0.2 - 1.3 mg/dL 0.4Alkaline Phosphatase 32 - 117 U/L 91AST 13 - 35 U/L 36 (H)Glucose 74 - 99 mg/dL 96 84BUN 7 - 21 mg/dL 13 12Creatinine 0.58 - 0.96 mg/dL 0.88 0.87Sodium 136 - 144 mmol/L 142 144Potassium 3.7 - 5.1 mmol/L 3.8 3.9Chloride 97 - 105 mmol/L 104 106 (H)CO2 22 - 30 mmol/L 26 26Anion Gap 9 - 18 mmol/L 12 12ALT 7 - 38 U/L 41 (H)eGFR- >60 >60eGFR-All Other Races . >60 >60Color Yellow Straw (A)Appearance (U) Clear ClearGlucose, Urine Negative mg/dL NegativeBilirubin, Urine Negative NegativeKetones, Urine Negative NegativeSpecific Huger, Ur 1.001 - 1.029 1.010Hemoglobin/Blood,Ur Negative NegativepH, Urine 5.0 - 8.0 7.0Protein, Urine Negative mg/dL NegativeUrobilinogen 0.2 - 1.0 0.2Nitrites Negative NegativeLeukest Negative Trace (A)Cholesterol, Total <200 mg/dL 148Triglyceride <150 mg/dL 72HDL Cholesterol >39 mg/dL 49LDL Cholesterol <100 mg/dL 85Non HDL Cholesterol <130 mg/dL 99Fasting Time hrs UnknownVLDL Cholesterol <30 mg/dL 14TC:HDL Ratio <5.10 3.02LDL:HDL Ratio <2.54 1.73WBC, Urine 0 - 5 /HPF 0-5RBC, Urine 0 - 3 /HPF 0-3Cast 0 /LPF SEE COMMENTEpithelial Cells /HPF SEE COMMENTCK 42 - 196 U/L 64MB <4.3 ng/mL 1.8CK MB % 0.0 - 4.0 % CK MB % not reported with CK <100 U/L.Hemoglobin A1C 4.3 - 5.6 % 5.1Estimated Average Glucose mg/dL 100TNT High Sensitivity <12 ng/L <6 <6Magnesium 1.7 - 2.3 mg/dL 2.3 2.2Glucose, Point of Care 74 - 99 mg/dL 88RECENT IMAGING/DIAGNOSTICS:--MRI Brain wo contrast (03/20/2018):negativePMH:PAST MEDICAL HISTORYDiagnosis Date- Ectopic fetus tube removedPSH:PAST SURGICAL HISTORYProcedure Laterality Date- SECTION HX x 4CURRENT MEDS:Current Facility-Administered Medications:amLODIPine 5 mg tab(s) (NORVASC) 5 mg ORAL DAILYaspirin 81 mg chewable tab(s) 81 mg ORAL DAILYmeclizine 25 mg tab(s) (ANTIVERT) 25 mg ORAL TID0.9% NaCl 3-5 mL 3-5 mL INTRAVENOUS q 12 Hondansetron orally disintegrating 4 mg tab(s) (ZOFRAN ODT) 4 mg ORAL q 6 HPRNOrondansetron (PF) 4 mg injection (ZOFRAN) 4 mg INTRAVENOUS q 6 H PRNacetaminophen 650 mg tab(s) (TYLENOL) 650 mg ORAL q 6 H PRNALLERGIES:ALLERGIESNo Known AllergiesFMH:FAMILY HISTORYProblem Relation Age of Onset- Hypertension Mother- Stroke Mother- Hypertension Maternal Grandmother- Stroke Maternal GrandmotherSOCIAL:Social History Marital status: Spouse name: Years of education: Number of children:Social History Main Topics Smoking status: Former Smoker Packs/day: 0.00 Years: 0.00 Types: Cigarettes Smokeless tobacco: Never Used Alcohol use: Yes 4.2 oz/week Glasses of wine: 7 per week Drug use: NoREVIEW OF SYSTEMS (In addition to HPI):GEN: No fever/chills.HEENT: No recent head trauma. No recent URI.NECK: No recent neck trauma.CARDIO: No chest pain. + palpitations.RESP: No SOB or ACOSTA. No cough.GI: No nausea. No vomiting.: No hesitancy. No frequency. No dysuria. No hematuria.MUSCULO: No myalgias. No arthralgias.NEURO: As per HPI.PSYCH: No depression. No anxiety.PHYSICAL EXAM:BP 145/84 Pulse 89 Temp 36.9 ?C (98.4 ?F) (Oral) Resp 20 Ht160 cm (5' 3) Wt 85.5 kg (188 lb 7.9 oz) SpO2 96% BMI 33.39kg/m?GEN: Alert. NAD. Normal affect. Cooperative.HEENT: No icterus. Normal mucosa.NECK/BACK: SuppleCV: RRR. No M/G/R/C. No carotid bruits.RESP: CTA b/l.EXT: No cyanosis. No edema. No erythema.SKIN: No rashes. No lesions.NEUROLOGICAL:MENTAL STATUS:Alert and oriented. Speech is fluent and spontaneous. Follows commandswell.CN:II: PERRLA.III, IV, : EOMI.V: Symmetric facial sensation to LT.VII: Face symmetric.VIII: Hearing symmetric. End gaze nystagmus worse with gaze to right morethan left. Moving to the side of the bed triggered nystagmus. John Hallpikereproduced symptoms but I did not appreciate nystagmus- worse with headturn to right than left. Brief.IX, X: Symmetric palatal rise.XI: Symmetric shoulder shrug.XII: Tongue midline with symmetric movements.MOTOR:RIGHT UE: LEFT UEDeltoid 5/5 Deltoid 5/5Biceps 5/5 Biceps 5/5WE 5/5 WE 5/5RIGHT LE: LEFT LE:HF 5/5 HF 5/5PF 5/5 PF 5/5DF 5/5 DF 5/5REFLEXES:Biceps: Left 2+; Right 2+, Triceps: Left 2+; Right 2+,Brachioradialis: Left 2+; Right 2+, Patellar: Left 2+; Right 2+ andAchilles: Left trace; Right trace.Plantar response flexor b/l. No clonus.SENSATION:LT intact and symmetric.CEREBELLAR:Normal F-N-F. Normal H-S. No dysmetria. No nystagmus.ASSESSMENT:62 year old female admitted with vertigo and elevated BP. Brain MRI isnegative for acute stroke. Clinical picture is most consistent withperipheral vertigo. Continue to gradually control the blood pressure. Willchange vertigo to prn since it does not help her feel better and she doesnot want to take it. May benefit from vestibular PT. No additionalneurological work-up needed.Rio Jernigan M.D.[facility] Neurological InstituteDepartment of NeurologyCenter for Regional NeurologyPager: [id number] 2017 Normal [facility] Lipid Panel, [place] 018 Cholesterol in HDL mass conc 49 mg/dL Normal >39 [facility] Comment on above: Result Comment: 40-5 9 mg/dL, Acceptable>59 mg/dL, High: Negative risk factor for coronary heart disease<40 mg/dL, Low: Positive risk factor for coronary heart disease Performed By: #### L IPB ####[facility] [address] [place], [place] [phone] Cholesterol in LDL mass conc 85 mg/dL Normal <100 [facility] Comment on above: Result Comment: <100 mg/dL, Optimal 100-129 mg/dL, Near optimal/above optimal 130-159 mg/dL, Borderline high 160-189 mg/dL, High>189 mg/dL, Very highSecondary prevention optimal LDL Cholesterol levels are recommended to be < 70 mg/dL Performed By: #### L IPB ####[place] [id number] [place], [place] [phone] Cholesterol mass conc 148 mg/dL Normal <200 [facility] Comment on above: Result Comment: <200 mg/dL, Desirable 200-239 mg/dL, Borderline high>239 mg/dL, High Performed By: #### L IPB ####[address] [phone] Fasting Time Unknown Normal [facility] Comment on above: Performed By: #### L IPB ####[address] [phone] LDL:HDL Ratio 1.73 Normal <2.54 [facility] Comment on above: Result Comment: Refe rence:1. National Cholesterol Education Program ATP III Guideline At-A-Glance Quick Desk Reference: National Heart, Lung, and Blood [place]. National Institutes of Health. 2001: NIH Publication No. 01-3305.2. An International Atherosclerosis Society position paper: global recommendations for the management of dyslipidemia: executive summary, Atherosclerosis. 2014: 232(2):410-413. Performed By: #### L IPB ####[address] [phone] Non HDL Cholesterol 99 mg/dL Normal <130 [facility] Comment on above: Result Comment: <130 mg/dL, Optimal 130-159 mg/dL, Near optimal/above optimal 160-189 mg/dL, Borderline high 190-219 mg/dL, High>219 mg/dL, Very highSecondary prevention optimal non HDL Cholesterol levels are recommended to be < 100 mg/dL Performed By: #### L IPB ####[address] [phone] TC:HDL Ratio 3.02 Normal <5.10 [facility] Comment on above: Performed By: #### L IPB ####[facility] [address] [place], [place] [phone] Triglyceride mass conc 72 mg/dL Normal <150 [facility] Comment on above: Result Comment: <150 mg/dL, Normal 150-199 mg/dL, Borderline high 200-499 mg/dL, High>499 mg/dL, Very high Performed By: #### L IPB ####[facility] [address] [place], [place] [phone] VLDL Cholesterol 14 mg/dL Normal <30 [facility] Comment on above: Performed By: #### L IPB ####[address] [phone] MRI BRAIN WO IVCONon 018 MRI BRAIN WO IVCON * * *Final Report* * *DATE OF EXAM: Mar 20 2018 11:31AM [facility] 0294 - MRI BRAIN WO IVCON / REASON: Headache and focal deficit or papilledema * * * * Physician Interpretation * * * * EXAMINATION: MRI BRAIN WO IVCONCLINICAL HISTORY: Headache and focal deficit or papilledema.TECHNIQUE: Routine noncontrast MRI protocol including diffusion images.MQ: [id number]: None.RESULT:Acute Change: There is no evidence of restricted diffusion to suggest an acute infarct.Hemorrhage: No evidence of prior parenchymal hemorrhage on the gradient echo images.Mass Lesion/ Mass Effect: No evidence of an intracranial mass or extra-axial fluid collection. No significant mass effect.Chronic Change: Single punctate focus of FLAIR hyperintensity present within the white matter of the left frontal lobe which is nonspecific. Brain parenchyma is otherwise normal in signal intensity and morphology.Parenchyma: No significant volume loss for age. The brain parenchyma is otherwise within normal limits of signal intensity and morphology.Ventricles: Normal caliber and morphology.Skull Base: Hypothalamic and pituitary region are grossly normal. Craniocervical junction is normal. No significant marrow replacement process.Vasculature: Major intracranial arterial structures, and dural venous sinuses show typical flow void, suggesting patency by spin echo criteria.Other: Mild mucosal thickening within the left maxillary sinus.IMPRESSION:No acute intracranial process. Overall unremarkable examination.Transcriptionis t: PSCB Transcribe Date/Time: Mar 20 2018 11:45ADictated by : ELOY JAMIL MDThigloria examination was interpreted and the report reviewed and electronically signed by: ELOY JAMIL MD on Mar 20 2018 11:53AM [id number] Normal [facility] Magnesiumon 03-20-2018 Magnesium mass conc 2.2 mg/dL Normal 1.7-2.3 [facility] Comment on above: Performed By: #### C BC, BMP, MG1 ####[facility] [address] [place] [phone] NURSING PROGon 03-20-2018 Protein mass conc HNO ID: [id number] thor: Elza HendricksonRn) Esme Romeroice: (none)Author Type: Registered NurseType: Nursing Progress NoteFiled: 03/20/2018 10:30 AMNote Text: Nursing Progress NotePatient Name: Bo GroveN: [id number] Location: [place] [address]/[id number]____ Daily Note:0735 RN assumed care of patient, patient resting in bed, assessmentcomplete, see NPR. Heart sounds regular, bowel sounds present, lung soundsclear, HR 83 SR on tele. IV patent, c/o dizziness, and a headache, lightsdimmed and repositioned.0856 Patient c/o headache and dizziness, medications given per OCT. HR 79SR on tele.1025 Report called to [employer] RN. Patient transferred in stable condition.This note was completed by: Elza Romero RN [facility] Protein mass conc HNO ID: [id number] thor: Ruth HendricksonRn) Esme Carreroice: (none)Author Type: Registered NurseType: Nursing Progress NoteFiled: 03/20/2018 5:10 AMNote Text: Nursing Progress NotePatient Name: Bo GroveN: [id number] Location: [place] [address]/[id number]____ Daily Note:2000 Pt arrive on unit. Family present with pt. No sign of acute distress.2130 Pt sitting up in bed. SR on tele. No sign of distress. Family hasmultiple family members [id number] Pt laying in bed. No sign of distress. Pt asking when VS will betaken. Explained hospital policies on observation pt's, VS, and plan ofcare. Pt verbalizes understanding.0100 Pt laying in bed on back, sleeping. No sign of acute distress. SR [id number] Pt laying in bed, sleeping. No sign of acute distress. SR on [id number] Pt laying in bed, sleeping. SR on teleThis note was completed by: Ruth Carrero RN [facility] PROGRESSon 03-20-2018 Protein mass conc HNO ID: [id number] thor: Callie Davis: Hospital MedicineAuthor Type: PhysicianType: Progress NotesFiled: 03/20/2018 2:23 PMNote Text:HOSPITAL MEDICINEPROGRESS NOTEName: Bo MonteiroMRN: [id number] DATE: 03/20/2018SERVICE TIME: 2:20 PMLOCATION / ROOM: [place] [address]/[address] ital Medicine/Primary Attending: Callie Damon MDNIGHT COVERAGE BETWEEN 5.30P-7.30APage [id number] AND PLANActive Hospital Problems Diagnosis- Dizziness -ct head and MRI brain were negative.-pt complaining of episodic vertigo.-John halpike maneuver performed at bedside was positive.-Will get physical therapy to see the patient for teaching the eppleymaneuver and further evaluation.-appreciate neurology .-meclizine not working for the patient and she does not want to try ahigher dose as that made her too sleepy.- Hypertensive urgency Will start the patient on amlodipine 5 mg and will titrate up if needed.SUBJECTIVEINTERVAL HPI:Still having episodes of dizziness which last for a few seconds, pt hasoccasional double vision with these episodes, she gets nauseous but novomiting.The episodes are severe enough up to the point where she has troublewalking.MEDICATIONS: ReviewedCurrent Facility-Administered Medications:amLODIPine 5 mg tab(s) (NORVASC) 5 mg ORAL DAILY Callie Hortonurana 5 mg at03/20/18 1257meclizine 25 mg tab(s) (ANTIVERT) 25 mg ORAL TID PRN Rio Ariannebyaspirin 81 mg chewable tab(s) 81 mg ORAL DAILY Breanna ([employer]) Pena 81 mgat 03/20/18 86099.9% NaCl 3-5 mL 3-5 mL INTRAVENOUS q 12 H Breanna ([employer] Acquisition [employer]) Pena 3 mL at03/20/18 0930ondansetron orally disintegrating 4 mg tab(s) (ZOFRAN ODT) 4 mg ORAL q 6 HPRN Breanna ([facility]) ReevesOrondansetron (PF) 4 mg injection (ZOFRAN) 4 mg INTRAVENOUS q 6 H PRNDestinee (Land Acquisition Manager) Reevesacetaminophen 650 mg tab(s) (TYLENOL) 650 mg ORAL q 6 H PRN Breanna ([facility])Pena 650 mg at 03/20/18 0932OBJECTIVEPHYSICAL EXAM: BP 145/84 Pulse 89 Temp (Src) 98.4 (Oral) Resp 20 Ht 5' 3 (1.60m) Wt 188 lb 7.9 oz (85.5kg) SpO2 96% BMI 33.40kg/(m2).GENERAL: Lying in bed and appears comfortable.SKIN: Skin color, texture, turgor normal. No rashes or lesions.EYES: PERRLA, EOMIOROPHARYNX: Lips, mucosa, and tongue normal. Teeth and gums normal.Oropharynx normal.NECK: No jugulovenous distention, No carotid bruits, Carotid pulse normalcontour, SuppleLUNGS: Lungs clear to auscultation, Good diaphragmatic excursionCARDIAC: Normal S1 and S2; no rubs, murmurs, or gallopsABDOMEN: Abdomen soft, non-tender, BS normal, No masses or organomegalyEXTREMITIES: Extremities normal, no deformities, edema, clubbing or skindiscoloration. Good capillary refill., No ulcersNEURO: Gait normal. Reflexes normal and symmetric. Sensation grosslyintact, Cranial nerves II-XII intact. john halpike manneuver performed atbedside and the patient experienced sever diziness along with nystagmus.PULSES: 2+ radial, 2+ carotidDATA:Diagnostic tests reviewed for today's visit:Most recent labsCBC:WBC 5.66 03/20/2018HGB 14.8 03/20/2018Hematocrit 44.6 03/20/2018Platelet Count 220 03/20/2018CMP:Sodium 144 03/20/2018Potassium 3.9 03/20/2018BUN 12 03/20/2018Creatinine 0.87 03/20/2018Glucose 84 03/20/2018Chloride 106 03/20/2018CO2 26 03/20/2018VTE Prophylaxis: Lovenox 40mg Sub Q DailyDisposition:Pending Pt evaluation.Plan of care discussed with: PatientSIGNATURE: Callie Damon, MDDATE: March 20, 2018TIME: 2:20 PM Normal [facility] Urinalysison 03-20-2018 Bilirubin, Urine Negative Normal Negative [facility] Comment on above: Performed By: #### U A, UAMIC ####[facility] [address] [place] [address] Clarity Clear Normal Clear [facility] Comment on above: Performed By: #### U A, UAMIC ####[facility] [address] [place] [address] Color Straw Critically abnormal Yellow [facility] Comment on above: Performed By: #### U A, UAMIC ####[facility] [address] [place] [address] Glucose Ql (U) Negative Normal Negative [facility] Comment on above: Performed By: #### U A, UAMIC ####[facility] [address] [place] [address] Hemoglobin/Blood,Ur Negative Normal Negative [facility] Comment on above: Performed By: #### U A, UAMIC ####[facility] [address] [place] [address] Ketones Ql (U) Negative Normal Negative [facility] Comment on above: Performed By: #### U A, UAMIC ####[facility] [address] [place] [address] Leukest Trace Critically abnormal Negative [facility] Comment on above: Performed By: #### U A, UAMIC ####[facility] [address]27 [place] [address] Nitrites Negative Normal Negative [facility] Comment on above: Performed By: #### U A, UAMIC ####[facility] [address] [place] [address] pH 7.0 Normal 5.0-8.0 [facility] Comment on above: Performed By: #### U A, UAMIC ####[facility] [address] [place] [address] Protein, Urine Negative Normal Negative [facility] Comment on above: Performed By: #### U A UAMIC ####[facility] [address] [place] [address] Specific Huger, Ur 1.010 Normal 1.001-1.029 [facility] Comment on above: Performed By: #### U A UAMIC ####[facility] [address] [place] [address] Urobilinogen 0.2 Normal 0.2-1.0 [facility] Comment on above: Performed By: #### U A, UAMIC ####[facility] [address] [place] [address] Urine Microscopic (FOR LAB U SE ONLY)on 03-20-2018 Cast SEE COMMENT Normal 0 [facility] Comment on above: Result Comment: 0 Performed By: #### U A, UAMIC ####[facility] [address] [place] [address] Epithelial Cells SEE COMMENT Normal [facility] Comment on above: Result Comment: 0-5S quamous Epithelial Cells Performed By: #### U A, UAMIC ####[facility] [address] [place] [address] INR Coag RelTime (Bld) 0-3 Normal 0-3 [facility] Comment on above: Performed By: #### U A, UAMIC ####[facility] [address] [place], [place] [phone] WBC 0-5 Normal 0-5 [facility] Comment on above: Performed By: #### U FRANNIE Valdovinos ####[facility] [address] [place] [phone] CASE MGT INIT Tamara 2017 CASE MGT INIT SHIRLENE HNO ID: [id number] thor: Barbara (Rn) THERESA Arroyoervice: (none)Author Type: Registered NurseType: Care Mgt Initial AssessmentFiled: 03/19/2018 7:03 PMNote Text:CARE MANAGEMENT: ASSESSMENT AND DISCHARGE PLANSERVICE DATE: 03/19/2018SERVICE TIME: 6:56 PMRN Video Games Mechanic met with patient at bedside in the emergency department.Introduction made and role of case management explained.Patient states she is agreeable to assessment questions.Assessment information provided by electronic medical record and patient.PRIMARY CARE PHYSICIAN: Loan Dias NP confirmedPhone: Qijulcn states she does not have any appointment scheduling preferencesADMISSION STATUS: EmergencyNeeds Prior to Discharge: To Be DeterminedMEDICAL:Patient/R epresentative Stated Goals:To have reduction in symptomsTo improve my functional statusTo return home to life as it wasHealth Insurance: [facility] and NoneHealth Issues Impacting Discharge Plan: Dizziness - HTNLast Admission Date: noneIs this Within the Past 30 days? NoAdvance Directive:Current Advance Directive: Health Care Power of Bulb Brander;Living WillIn Chart: NoHCPOA: Spouse Derrek Monteiro [phone] Literacy:1. How often do you need to have someone help you when you readinstructions, pamphlets, or other written material from your doctor orpharmacy? Never - 12. How confident are you filling out medical forms by yourself? Extremely- 1If Patient scores > 3 on either question, the following interventions wereput into place:Use of plain language and active listening with Patient and family, Teachback methods employed to ensure comprehension and Use concrete andspecific phrases, avoid medical jargonFUNCTIONAL AND COGNITIVE/BEHAVIORALPRIOR TO ADMISSION:Baseline Mental Status: Alert AND Oriented, Person, Place , Time andSituationFunctional Status: IndependentDoes Patient Currently Receive Any Community Services or Home Care? NoneEquipment Prior to Admission: NoneHas the Patient Been in a Mcfp Facility in the Past 30 days? NoSOCIAL:Living Arrangement: HomeLives With: SpouseFinancial Resources: N/APrimary Contact:Derrek MonteiroPhone: Puaxawzp: SpouseTravis HensleyPhone: Bjsiltae: DaughterSupportive: YesOther Important Patient Contacts: NoneCaregiver Assessment:Caregiver is ready, willing and able to meet the patient's needs asrecommended by the inter-professional team? No Caregiver NeededPatient's transition needs and plan for meeting these needs: Home/SelfCareDoes the patient have an acute stroke diagnosis, or has the patient had astroke during this admission? NoMedicaiton Adherence: Patient is unable to complete at this time due topatient states she does not take any [place] [facility] [place].Are you interested in bedside delivery of your medications? NoPharmacy Preference: [facility] in [facility] Concerns:In the Last Month, Have You had Trouble Getting Food? No trouble gettingfoodDuring the Last Month, Have You Worried Whether Your Food Would Run OutBefore You Had Enough Money to Buy More? NoIs the Patient Psychosocially Complex? NoASSESSMENT AND PLAN:Medical Needs: Dizziness - HTNPsychosocial Needs: NoneFREEDOM OF CHOICE EXPLAINED:N/APOTENTIAL TRANSITION PLANSDischarge Needs: To Be DeterminedHome/Self CareDischarge Transportation: Family to TransportPatient informed Care Management is available to aid in discharge planningneeds.Primary Care Physician: Loan Dias NP - [facility] Summary of Care to besent at discharge.SIGNATURE: Barbara Arroyo RN PATIENT NAME: Bo MonteiroDATE: March 19, 2018 : 6:56 PM PAGER/CONTACT #: [phone] Normal [facility] CBC and Differentialon 03-19 Abs Baso 0.09 k/uL Normal <0.11 [facility] Comment on above: Performed By: #### C BCDIF, CMP, MG1 ####[facility] [address] [place] [phone] Abs Marinette 0.65 k/uL Normal <0.87 [facility] Comment on above: Performed By: #### C BCDIF, CMP, MG1 ####[facility] [address] [place] [address] Abs Neut 5.24 k/uL Normal 1.45-7.50 [facility] Comment on above: Performed By: #### C BCDIF, CMP, MG1 ####[facility] [address] [place] [address] Basophils/100 WBC Auto (Bld) 1.1 % Normal [facility] Comment on above: Performed By: #### C BCDIF, CMP, MG1 ####[facility] [address] [place] [address] Eosinophils Auto #/vol (Bld) 0.31 10*3/uL Normal <0.46 [facility] Comment on above: Performed By: #### C BCDIF, CMP, MG1 ####[facility] [address] [place] [address] Eosinophils/100 WBC Auto (Bld) 3.7 % Normal [facility] Comment on above: Performed By: #### C BCDIF, CMP, MG1 ####[facility] [address] [place] [address] Erythrocyte distribution width Auto Ratio (RBC) 13.5 % Normal 11.5-15.0 [facility] Comment on above: Performed By: #### C BCDIF, CMP, MG1 ####[facility] [address] [place] [address] Hematocrit Auto Volume Fraction (Bld) 46.4 % High 36.0-46.0 [facility] Comment on above: Performed By: #### C BCDIF, CMP, MG1 ####[facility] [address] [place] [address] Hemoglobin mass conc (Bld) 15.4 g/dL Normal 11.5-15.5 [facility] Comment on above: Performed By: #### C BCDIF, CMP, MG1 ####[facility] [address] [place] [address] Lymphocytes Auto #/vol (Bld) 2.12 10*3/uL Normal 1.00-4.00 [facility] Comment on above: Performed By: #### C BCDIF, CMP, MG1 ####[facility] [address] [place] [address] Lymphocytes/100 WBC Auto (Bld) 25.2 % Normal [facility] Comment on above: Performed By: #### C BCDIF, CMP, MG1 ####[facility] [address] [place] [address] MCH Auto Entitic mass (RBC) 30.6 pG Normal 26.0-34.0 [facility] Comment on above: Performed By: #### C BCDIF, CMP, MG1 ####[facility] [address] [place] [address] MCHC Auto mass conc (RBC) 33.2 g/dL Normal 30.5-36.0 [facility] Comment on above: Performed By: #### C BCDIF, CMP, MG1 ####[place] [address] MCV Auto Entitic volume (RBC) 92.2 fL Normal 80.0-100.0 [facility] Comment on above: Performed By: #### C BCDIF, CMP, MG1 ####[facility] [address] [place] [address] Monocytes/100 WBC Auto (Bld) 7.7 % Normal [facility] Comment on above: Performed By: #### C BCDIF, CMP, MG1 ####[facility] [address] [place] [address] Neutrophils/100 WBC Auto (Bld) 62.3 % Normal [facility] Comment on above: Performed By: #### C BCDIF, CMP, MG1 ####[facility] [address] [place] [address] Platelet mean volume Auto Entitic volume (Bld) 10.0 fL Normal 9.0-12.7 [facility] Comment on above: Performed By: #### C BCDIF, CMP, MG1 ####[facility] [address] [place] [address] Platelets Auto #/vol (Bld) 255 10*3/uL Normal 150-400 [facility] Comment on above: Performed By: #### C BCDIF, CMP, MG1 ####[facility] [address] [place] [address] RBC Auto #/vol (Bld) 5.03 10*6/uL Normal 3.90-5.20 [facility] Comment on above: Performed By: #### C BCDIF, CMP, MG1 ####[facility] [address] [place] [address] WBC Auto #/vol (Bld) 8.41 10*3/uL Normal 3.70-11.00 [facility] Comment on above: Performed By: #### C BCDIF, CMP, MG1 ####[facility] [address] [place] [address] CK, Total and CKMBon 018 CK enzyme act/vol 64 U/L Normal 42-196 [facility] Comment on above: Performed By: #### C LIANA ####[facility] [address] [place] [address] CK MB % CK MB % not reported with CK <100 U/L. Normal 0.0-4.0 [facility] Comment on above: Performed By: #### C KCANNIKA ####[facility] [address] [place] [address] MB 1.8 ng/mL Normal <4.3 [facility] Comment on above: Performed By: #### C KCANNIKA ####[facility] [address] [place] [address] Comp Metabolic Panelon 03-19 Albumin mass conc 4.6 g/dL Normal 3.9-4.9 [facility] Comment on above: Performed By: #### C BCDIF, CMP, MG1 ####[facility] [address] [place] [address] ALP enzyme act/vol 91 U/L Normal 32-117 [facility] Comment on above: Performed By: #### C BCDIF, CMP, MG1 ####[facility] [address] [place] [address] ALT enzyme act/vol 41 U/L High 7-38 [facility] Comment on above: Performed By: #### C BCDIF, CMP, MG1 ####[facility] [address] [place] [address] Anion gap 3 molar conc 12 mmol/L Normal 9-18 [facility] Comment on above: Performed By: #### C BCDIF, CMP, MG1 ####[facility] [address] [place] [address] AST enzyme act/vol 36 U/L High 13-35 [facility] Comment on above: Performed By: #### C BCDIF, CMP, MG1 ####[facility] [address] [place] [address] Bilirubin mass conc 0.4 mg/dL Normal 0.2-1.3 [facility] Comment on above: Performed By: #### C BCDIF, CMP, MG1 ####[facility] [address] [place] [address] Calcium mass conc 9.6 mg/dL Normal 8.5-10.2 [facility] Comment on above: Performed By: #### C BCDIF, CMP, MG1 ####[facility] [address] [place] [address] Chloride molar conc 104 mmol/L Normal 97-105 [facility] Comment on above: Performed By: #### C BCDIF, CMP, MG1 ####[place] [address] CO2 molar conc 26 mmol/L Normal 22-30 [facility] Comment on above: Performed By: #### C BCDIF, CMP, MG1 ####[facility] [address] [place] [address] Creatinine mass conc 0.88 mg/dL Normal 0.58-0.96 [facility] Comment on above: Performed By: #### C BCDIF, CMP, MG1 ####[facility] [address] [place] [address] eGFR- Amer. >60 Normal [facility] Comment on above: Performed By: #### C BCDIF, CMP, MG1 ####[facility] [address] [place] [address] GFR/1.73 sq M predicted among non-blacks MDRD vol rate/area (S/P/Bld) mL/min/{1.73_m2} Normal [facility] Comment on above: Result Comment: eGFR (Estimated GFR) Units of measure: mL/min/1.73 meters squaredeGFR is derived from the reexpressed MDRD Study equation using the following parameters: serum creatinine, age, gender and race. The creatinine assay has been calibrated to be traceable to IDMS.An eGFR <60 mL/min/1.73m2 for >3 months is consistent with chronic kidney disease. Refer to KDOQI guidelines for clinical interpretation.In patients with unstable renal function, e.g. those with acute kidney injury, the eGFR may not accurately reflect actual GFR. Performed By: #### C RICK LOMAX, MG1 ####[facility] [address] [place] [address] Glucose mass conc 96 mg/dL Normal 74-99 [facility] Comment on above: Result Comment: The [place] Diabetes Association (ADA) provides guidance for cutoff values for fasting glucose and random glucose. The ADA defines fasting as no caloric intake for at least 8 hours. Fasting plasma glucose results between 100 to 125 mg/dL indicate increased risk for diabetes (prediabetes).Fasting plasma glucose results greater than or equal to 126 mg/dL meet the criteria for diagnosis of diabetes. In the absence of unequivocal hyperglycemia, results should be confirmed by repeat testing. In a patient with classic symptoms of hyperglycemia or hyperglycemic crisis, random plasma glucose results greater than or equal to 200 mg/dL meet the criteria for diagnosis of diabetes.Reference: Standards of Medical Care in Diabetes 2016, [place] Diabetes Association. Diabetes Care. 2016.39(Suppl 1). Performed By: #### C BCJIMMYFRICK, MG1 ####[facility] [address] [place] [id number] Potassium molar conc 3.8 mmol/L Normal 3.7-5.1 [facility] Comment on above: Performed By: #### C RICK LOMAX, MG1 ####[facility] [address] [place], [place] [address]60 Protein mass conc 7.3 g/dL Normal 6.3-8.0 [facility] Comment on above: Performed By: #### C BCDIFRICK, MG1 ####[facility] [address]pmgm[address]35 [address] Sodium molar conc 142 mmol/L Normal 136-144 [facility] Comment on above: Performed By: #### C BCDIF, CMP, MG1 ####[facility] [address] [place] [phone] Urea nitrogen mass conc 13 mg/dL Normal 7-21 [facility] Comment on above: Performed By: #### C BCDIF, CMP, MG1 ####[facility] S[phone] ED NOTEon 03-19-2018 ED NOTE HNO ID: [id number] Author: Annie HendricksonRn) BERNABE Mcmanus Service: (none) Author Type: Registered Nurse Type: ED Notes Filed: 03/19/2018 7:19 PM Note Text: pt updated on plan of care [facility] ED NOTE HNO ID: [id number] Author: Alondra (Rn) BERNABE Manzo Service: (none) Author Type: Registered Nurse Type: ED Notes Filed: 03/19/2018 6:27 PM Note Text: Ambulated to bathroom with assistance, continues to feel dizzy. [facility] ED NOTE HNO ID: [id number] Author: Alondra (Rn) BERNABE Manzo Service: (none) Author Type: Registered Nurse Type: ED Notes Filed: 03/19/2018 5:00 PM Note Text: XR at bedside [facility] ED NOTE HNO ID: [id number] thor: Alondra Zavala) THERESA Manzoervice: (none)Author Type: Registered NurseType: ED NotesFiled: 03/19/2018 4:59 PMNote Text: Pt to ED c/o dizziness that started past Saturday. Reports that she wasseen by [facility] on Saturday and diagnosed with vertigo, given Antivert andValium. Pt states the medication just makes her sleep. Pt woke up todayand felt a little better, but reports that as the day progressed she feltworse. Pt was seen in PCP office today and was sent to ED. Pt continuesto feel dizzy and needs assistance with ambulation. Pt has intermittentdouble vision, none at this time. [facility] ED NOTE HNO ID: [id number] thor: Basim Zavala) THERESA Gonzaleservice: (none)Author Type: Registered NurseType: ED NotesFiled: 03/19/2018 4:37 PMNote Text:Bed: ED-11Expected date:Expected time:Means of arrival:Comments:Cecil - sent by Loan Dias Dizzy [facility] ED NOTE HNO ID: [id number] Author: Ruby (Rn) BERNABE Walter Service: (none) Author Type: Registered Nurse Type: ED Notes Filed: 03/19/2018 4:36 PM Note Text: Patient presents to the ED from her PCP with positive orthostatics and dizziness. [facility] ED PROV NOTEon 03-19-2018 Protein mass conc HNO ID: [id number] thor: Heriberto Ballard III, MDService: (none)Author Type: PhysicianType: ED Provider NotesFiled: 03/19/2018 10:29 PMNote Text:ED Provider NotePatient Name: Bo MonteiroMRN: [id number] DATE: 03/19/18HistoryPatient presents with:DizzinessHypertension6 2-year-old female, otherwise healthy, presents with dizziness, andtingling to upper lip. She states she's been dizzy for 4 days. Diagnosedwith vertigo at [facility] 2 days ago with a normal scan and labs. She'sbeen on Valium and Antivert without relief. She followed up with hernurse practitioner today who was concerned that her orthostatic vitalswhich positive and a tingling in her lip. However the tingling in hisbilateral upper lip and she has no other neuro deficits. There is afamily history of CVA. The patient's never had a CVA or IA. She takesnothing for hypertension hyperlipidemia or diabetes. No chest pain orshortness of breath currently.History provided by: Patient and spousePAST MEDICAL HISTORYDiagnosis Date- Ectopic fetus tube removedPAST SURGICAL HISTORYProcedure Laterality Date- SECTION HX x 4Social HistorySocial History Main Topics- Smoking status: Former Smoker Types: Cigarettes- Smokeless tobacco: Never Used- Alcohol use 4.2 oz/week 7 Glasses of wine per week- Drug use: No- Sexual activity: Not on fileALLERGIESNo Known AllergiesReview of SystemsConstitutional: Negative for chills and fever.HENT: Negative.Eyes: Positive for visual disturbance (intermittent blurred vision, nonecurrently).Respiratory: Negative for shortness of breath.Cardiovascular: Negative. Negative for chest pain.Gastrointestinal: Negative for abdominal pain, diarrhea, nausea andvomiting.Endocrine: Negative.Genitourinary: Negative for difficulty urinating, dysuria and flank pain.Musculoskeletal: Negative for myalgias and neck pain.Skin: Negative for rash.Neurological: Positive for dizziness. Negative for syncope, weakness,light-headedness, numbness and headaches.Hematological: Negative.Psychiatric/Behavi oral: Negative.Physical ExamBP 180/82 Pulse 72 Temp (Src) 97.8 (Oral) Resp 20 Wt 180 lb(81.6kg)Physical ExamConstitutional: She is oriented to person, place, and time. She appearswell-developed and well-nourished. No distress.Well appearing female in NADHENT:Head: Normocephalic and atraumatic.Eyes: Conjunctivae and EOM are normal. Pupils are equal, round, andreactive to light.Neck: Normal range of motion.Cardiovascular: Normal rate, regular rhythm and normal heart sounds.Pulmonary/Chest: Effort normal and breath sounds normal. No respiratorydistress.Abdomin al: Soft. Bowel sounds are normal. There is no tenderness.Musculoskeletal: Normal range of motion.Neurological: She is alert and oriented to person, place, and time. Shehas normal strength. No cranial nerve deficit or sensory deficit. Shedisplays a negative Romberg sign. Coordination normal. GCS eye subscore is4. GCS verbal subscore is 5. GCS motor subscore is 6.Skin: Skin is warm and dry.Psychiatric: She has a normal mood and affect.Nursing note and vitals reviewed.Chest Pain PathwayHistory of Present Symptoms: Low RiskECG Findings: Non Ischemic ECGNumber of Risk Factors: 2Initial High Sensitivity Troponin: <12 ng/lDelta Troponin: <3 ng/lTotal Heart Score: 3Based on the above information, patient is at very low risk for a MajorAdverse Cardiac Event at 30 daysDiagnostic TestingED Labs Ordered and ReviewedCBC + DIFF - Abnormal; Notable for the following: Result Value Ref Range Hematocrit 46.4 (*) 36.0 - 46.0 % All other components within normal limitsCOMP METABOLIC PANEL - Abnormal; Notable for the following: AST 36 (*) 13 - 35 U/L ALT 41 (*) 7 - 38 U/L All other components within normal limitsHIGH SENSITIVITY TROPONIN THIGH SENSITIVITY TROPONIN TCK TOTAL AND CK-MBMAGNESIUM BLDProceduresED Course / Clinical ImpressionClinical Impressions as of Mar 19 2225DizzinessHypertensive urgencyMDM / Disposition / Plan Patient presents to the ED from her PCPs office for dizziness that's been4 days, seen at [facility] with a normal CT and labs however her dizziness isworsening despite being on Antivert and Valium. No chest pain. She doeshave a family history of CVA. She's having some tingling to her upper lipbilaterally as well as some intermittent blurred/double vision. Thepatient was given IV fluids. Her workup is benign. However she remainshypertensive and when she ambulates around she is still feeling dizzy.Concerned that she needs an MRI. She will be observed overnight.The patient was ADMITTED TO: tele.Case discussed with admitting physician, Dr. Carter.Condition at time of disposition: stableSIGNATURE: KIRILL Wolfe-Maria Elena Hutchinson (Emmanuel Potter03/19/18 1846Attending NoteI have personally performed a face to face assessment of the patient andhave reviewed the PA/LOWER IN SUPERVISOR note. My posada findings include:62-year-old female presents emergency Department with complaint ofdizziness for the past 4 days. She also complains of some tingling of herupper lip. On examination she is awake alert she has no focal numbness orweakness. On ambulation the patient continues to complain of unsteadinessand dizziness she will be placed in observation for further evaluation andtreatment.Other additions or changes: NoneSignature: AWA Snyderate: 03/19/2018Time: 10:28 Violetta Ballard III, MD03/19/182228 Normal [facility] EKGon 03-19-2018 Protein mass conc NAME : MADELINE MONTEIRO SEPID : [id number] : [id number] Gender : FemaleRace : CaucasianORD : [id number] Procedure Date : Mar 19 2018 16:56:37Edit Date : Mar 20 2018 12:54:26 Diagnosis:NORMAL SINUS RHYTHMPOSSIBLE LEFT ATRIAL ENLARGEMENTLEFT AXIS DEVIATIONABNORMAL ECGNO PREVIOUS ECGS AVAILABLEConfirmed by MARIAH DINH M.D. ([id number]) on 03/20/2018 12:54:20 PM Ventricular Rate : 69 BPMAtrial Rate : 69 BPMP-R Interval : 148 msQRS Duration : 86 msQ-T Interval : 416 msQTC Calculation(Bezet) : 445 msP Seaman : 33 degreesR Seaman : -30 degreesT Seaman : 12 degrees Test Reason : Dizziness Location : 1 : ER 11 Overread By : MARIAH DINH M.D.Edited By : ALLEGRA Vargas,MARIAHReferred By : ,Acquired by : Sean GREWAL [facility] HISTORY PHYSICALon HISTORY PHYSICAL HNO ID: [id number] thor: Matti Haqueervice: [facility] MedicineAuthor Type: PhysicianType: HANDPFiled: 03/19/2018 11:06 PMNote Text:HOSPITAL MEDICINEHISTORY AND PHYSICAL EXAMPATIENT NAME: oB MonteiroMRN: [id number] DATE: 03/19/2018SERVICE TIME: 6:54 PMPrimary Care Physician: Loan Dias NPNIGHT COVERAGEPage [phone] for any questions between 5.30p-7.30aASSESSMENT AND PLANActive Hospital Problems Diagnosis- Dizziness -dizziness for 4 days with intermittent blurred vision-continue antivert TID, valium made her drowsy-neuro consulted-tele monitoring-check A1C and lipid panel-BP control carefully-MRI in am-CT done 2 days ago at [facility] with no acute intracranial process- Hypertensive urgency SBP >200 in ED, clonidine given with improvement-tele monitoring-vital signs [id number] COMPLAINT: Dizziness and elevated BPHPI: This is a 62 year old female who presents with no PMH who presentswith dizziness and high blood pressure. She states she started to feeldizzy 4 days ago and her daughter (who is a nurse practitioner) took herBP and found it to be elevated so she went to [facility] to be evaluated andwas sent home on valium and antivert. She starts she didn't have muchrelief but it made her feel drowsy. She had a follow up with PCP bethanie and was found to still be dizzy and have elevated blood pressure.She has no hx of htn and does not take any medications at home except babyaspirin. Her PCP then sent her here for evaluation. Her BP is stillelevating, and she is still reporting dizziness and blurred vision. A CTof her brain was done 2 days ago at [facility] and found to be negative forany acute intracranial process. She states she had a negative stress testjust over 1 year ago for complaints of chest pressure. Denies any chestpain, sob, fever/chills, n/v/d, no lightheadedness just dizzy, no urinarysymptoms or swelling in legs.PAST MEDICAL HISTORY:PAST MEDICAL HISTORYDiagnosis Date- Ectopic fetus tube removedPAST SURGICAL HISTORY:PAST SURGICAL HISTORYProcedure Laterality Date- SECTION HX x 4FAMILY HISTORY:FAMILY HISTORYProblem Relation Age of Onset- Hypertension Mother- Stroke Mother- Hypertension Maternal Grandmother- Stroke Maternal GrandmotherSOCIAL HISTORY:Social HistorySubstance Use Topics- Smoking status: Former Smoker Types: Cigarettes- Smokeless tobacco: Never Used- Alcohol use 4.2 oz/week 7 Glasses of wine per weekMARITAL HISTORY: MarriedMEDICATIONS: ReviewedALLERGIES: ALLERGIESNo Known AllergiesREVIEW OF SYSTEM:PAIN ASSESSMENT: Negative for pain, history of chronic pain, or currenttreatment for a chronic pain condition.GENERAL: No weight loss, malaise or fevers.HEENT: Negative for frequent or significant headaches, No changes inhearing,no nose bleeds or other nasal problems, reports blurred visionNECK: Negative for lumps, goiter, pain and significant neck swellingRESPIRATORY: Negative for cough, hemoptysis, wheezing or shortness ofbreathCARDIOVASCULAR: Negative for chest pain, palpitations or leg swelling.Reports high blood pressure reading at homeGI: No nausea, vomiting, or diarrheaGU: No history of dysuria, frequency or incontinence.MUSCULOSKELETA L: Negative for joint pain or swelling, back pain or musclepain.SKIN: Negative for lesions, rash, and itching.PSYCH: Negative for sleep disturbance, mood disorder and recentpsychosocial stressors.HEMATOLOGY/LYMPHO LOGY: Negative for prolonged bleeding, bruising easily orswollen nodes.ENDOCRINE: Negative for cold or heat intolerance, polyuria, polydipsia andgoiter.NEURO: No history of headaches, syncope, paralysis, seizures or tremors,reports dizzinessOBJECTIVEPHYSICAL EXAM: BP 200/99 Pulse 80 Temp (Src) 97.8 (Oral) Resp 16 Wt 180 lb (81.6kg) SpO2 97%GENERAL: alert, no distress, cooperativeSKIN: Skin color, texture, turgor normal. No rashes or lesions.HEAD/SINUSES: No significant findings.EYES: PERRLA and EOMIOROPHARYNX: Lips, mucosa, and tongue normal. Teeth and gums normal.Oropharynx normal.NECK: no jugulovenous distention, no carotid bruits, carotid pulse normalcontour, suppleBACK: Back symmetric, Normal curvature, ROM normal, No CVAT.LUNGS: Lungs clear to auscultation. Good diaphragmatic excursion.CARDIAC: normal S1 and S2; no rubs, murmurs, or gallopsABDOMEN: Abdomen soft, non-tender. BS normal. No masses or organomegaly.EXTREMITIES: Extremities normal. No deformities, edema, clubbing or skindiscoloration. No ulcersNEURO: Reflexes normal and symmetric. Sensation grossly intact. Cranialnerves II-XII intact. Dizziness and blurred visionPULSES: 2+ radial, 2+ carotidDATA:Diagnostic tests reviewed for today's visit:Most recent labsMost recent imagingMost recent EKGCBC:WBC 8.41 03/19/2018HGB 15.4 03/19/2018Hematocrit 46.4 03/19/2018Platelet Count 255 03/19/2018CMP:Sodium 142 03/19/2018Potassium 3.8 03/19/2018BUN 13 03/19/2018Creatinine 0.88 03/19/2018Glucose 96 03/19/2018Chloride 104 03/19/2018CO2 26 03/19/2018VTE Prophylaxis: Early AmbulationDisposition: HomePlan of care discussed with: PatientSIGNATURE: Breanna Pena APRN.CNPDATE: March 19, 2018TIME: 6:54 PMADDENDUMPatient seen and eval. Reviewed orders and HANDP from [facility].Patient presented with symptoms of vertigo x4 days with diplopia. She alsoreported hypertension and her PCP noticed abnormal rhythm in EKG and askedpatient to go to ER.BP 171/79 Pulse 71 Temp 36.6 ?C (97.9 ?F) (Oral) Resp 18 Ht160 cm (5' 3) Wt 85.5 kg (188 lb 7.9 oz) SpO2 99% BMI 33.39kg/m?Exam was unremarkable, no focal deficits.No Afib in telemetryAssessment and Plan:MRI to r/o strokeIf negative for stroke, vestibular PT evalPermissive HTN for 24 hrs due to suspicion for strokeUse prn hydralazine/labetalol for BP >180/110DATA:Diagnostic tests reviewed for today's visit:Most recent labsCBC:WBC 8.41 03/19/2018HGB 15.4 03/19/2018Hematocrit 46.4 03/19/2018Platelet Count 255 03/19/2018CMP:Sodium 142 03/19/2018Potassium 3.8 03/19/2018BUN 13 03/19/2018Creatinine 0.88 03/19/2018Glucose 96 03/19/2018Chloride 104 03/19/2018CO2 26 03/19/2018Plan of care discussed with: Patient, daughter and sonSIGNATURE: Matti Aden, MDDATE: March 19, 2018TIME: 11:01 PM Normal [facility] Hemoglobin A1con 03-19-2018 Glucose mass conc 100 mg/dL Normal [facility] Comment on above: Result Comment: eAG: (Estimated average glucose) is a calculated value from HgbA1c and is operations representative of the average blood glucose level in the last 2-3 month period. Performed By: #### H BA1C ####[facility] [address] [place], [place] [phone] Hemoglobin A1c/Hemoglobin.total mass fraction (Bld) 5.1 % Normal 4.3-5.6 [facility] Comment on above: Performed By: #### H BA1C ####[facility] [address] [place], [place] [phone] High Sens Troponin Ton 03-19 High Sensitivity KACY <6 Normal <12 [facility] Comment on above: Result Comment: When assessing risk for acute coronary syndromes: In patients undergoing blood draw greater than or equal to 2 hours from symptom onset, with history of very low to moderate risk and non-ischemic ECG, an initial hs-Troponin T less than 12 ng/L AND a 1 hour delta hs-Troponin T less than 3 ng/L should be considered very low risk for 30 day MACE. Performed By: #### H STNT ####[facility] [address] [place] [address] High Sensitivity KACY <6 Normal <12 [facility] Comment on above: Result Comment: When assessing risk for acute coronary syndromes: In patients undergoing blood draw greater than or equal to 2 hours from symptom onset, with history of very low to moderate risk and non-ischemic ECG, an initial hs-Troponin T less than 12 ng/L AND a 1 hour delta hs-Troponin T less than 3 ng/L should be considered very low risk for 30 day MACE. Performed By: #### H STNT ####[facility] [address] [place] [address] Magnesiumon 03-19-2018 Magnesium mass conc 2.3 mg/dL Normal 1.7-2.3 [facility] Comment on above: Performed By: #### C BCDIF, CMP, MG1 ####[facility] [address] [place] [address] XR CHEST 1V FRONTAL PORTon 0 03-19-2018 Protein mass conc * * *Final Report* * *DATE OF EXAM: Mar 19 2018 5:07PM MDX [id number] - XR CHEST 1V FRONTAL PORT / REASON: Dizziness * * * * Physician Interpretation * * * * EXAMINATION: CHEST RADIOGRAPH (PORTABLE SINGLE VIEW AP)Exam Date/Time: 03/19/2018 5:07 PMClinical History: DizzinessMQ: [id number]: NoneRESULT:See impression.IMPRESSION:Lines , tubes, and devices: None.Lungs and pleura: No edema, infiltrates, pulmonary nodules or pleural effusions.Cardiomediastinal silhouette: Within normal limitsOther: .Glass Melt Operator: PSCB Transcribe Date/Time: Mar 19 2018 5:08PDictated by : MARIBEL LINDSEY MDThigloria examination was interpreted and the report reviewed and electronically signed by: MARIBEL LINDSEY MD on Mar 19 2018 5:08PM [id number] Normal [facility] CT HEAD W/O CONTRASTon 03-17 CT HEAD W/O CONTRAST Performed at [facility] APPROVED BY: Caleb Shanks MD EXAMINATION: CT HEAD W/O CONTRAST CLINICAL HISTORY: Vertigo TECHNIQUE: Serial axial images without IV contrast were obtained from the vertex to the foramen magnum.MQ: [id number]_3 CT Dose-Length Product (DLP): 772 mGy*cmCT Dose Reduction Employed: 5-no dose reduction technique was required COMPARISON: None. RESULT: Post-operative change: None. Acute change: No evidence of an acute infarct or other acute parenchymal process. Hemorrhage: No evidence of acute intracranial hemorrhage. Mass Lesion / Mass Effect: There is no evidence of an intracranial mass or extraaxial fluid collection. No significant mass effect. Chronic change: None apparent. Parenchyma: There is no significant volume loss. The brain parenchyma is otherwise within normal limits for age. Ventricles: The ventricles are within normal limits of size and configuration for age. Paranasal sinuses and skull base: The visualized paranasal sinuses are grossly clear. The skull base and imaged soft tissues are unremarkable. IMPRESSION: No acute intracranial abnormality. Normal [facility] Comprehensive Panelon 2017 Albumin mass conc 3.7 g/dL Normal 3.4-5.0 [facility] Comment on above: Performed By: #### L P14 ####[place] [address] ALP enzyme act/vol 99 U/L Normal 46-116 [facility] Comment on above: Performed By: #### L P14 ####[place] [address] ALT-SGPT Blood 47 U/L Normal 14-63 [facility] Comment on above: Performed By: #### L P14 ####[place] [address] Anion gap 3 molar conc 9 mmol/L Normal 8-20 [facility] Comment on above: Performed By: #### L P14 ####[place] [address] AST-SGOT Blood 24 U/L Normal 15-37 [facility] Comment on above: Performed By: #### L P14 ####[place] [address] Bilirubin Ql (U) 0.6 mg/dL Normal 0.2-1.0 [facility] Comment on above: Performed By: #### L P14 ####[facility] [place], [place] [address] Calcium mass conc 8.9 mg/dL Normal 8.5-10.1 [facility] Comment on above: Performed By: #### L P14 ####[facility] [place], [place] [address] Chloride molar conc 110 mmol/L High 98-107 [facility] Comment on above: Performed By: #### L P14 ####[place] [address] CO2 molar conc 28 mmol/L Normal 21-32 [facility] Comment on above: Performed By: #### L P14 ####[place] [address] Creatinine mass conc 0.84 mg/dL Normal 0.51-0.95 [facility] Comment on above: Performed By: #### L P14 ####[place] [address] Glucose mass conc 108 mg/dL High 70-99 [facility] Comment on above: Performed By: #### L P14 ####[place] [address] Potassium molar conc 3.8 mmol/L Normal 3.5-5.1 [facility] Comment on above: Performed By: #### L P14 ####[address] [address] Protein mass conc 6.9 g/dL Normal 6.4-8.2 [facility] Comment on above: Performed By: #### L P14 ####[place] [address] Sodium molar conc 143 mmol/L Normal 136-145 [facility] Comment on above: Performed By: #### L P14 ####[place] [address] Urea nitrogen mass conc (Bld) 19 mg/dL Normal 7-25 [facility] Comment on above: Performed By: #### L P14 ####[facility] [place], [place] [address] Urea nitrogen/Creatinine mass ratio 23 mg/mg High 10- [facility] Comment on above: Performed By: #### L P14 ####[address] [address] ED NOTEon 03-17-2018 ED NOTE HNO ID: [id number] Author: Maria Fernanda HendricksonRn) BERNABE Bolanos Service: (none) Author Type: Registered Nurse Type: ED Notes Filed: 03/17/2018 12:34 PM Note Text: Pt moving all extremities, speech clear No s/s of distress Normal [facility] ED NOTE HNO ID: [id number] thor: Maria Fernanda HendricksonRn) Esme Bolanosice: (none)Author Type: Registered NurseType: ED NotesFiled: 03/17/2018 12:29 PMNote Text:Dr Fong at bedsidePt resting quietlyStates Now I have a headache Reports 02/25Den improvement of dizzinessSpeech clear, moving all extremities, no s/s of distress Normal [facility] ED NOTE HNO ID: [id number] Author: Maria Fernanda HendricksonRn) BERNABE Bolanos Service: (none) Author Type: Registered Nurse Type: ED Notes Filed: 03/17/2018 11:40 AM Note Text: Patient returned to the Emergency Department. Normal [facility] ED NOTE HNO ID: [id number] Author: Maria Fernanda HendricksonRn) BERNABE Bolanos Service: (none) Author Type: Registered Nurse Type: ED Notes Filed: 03/17/2018 11:40 AM Note Text: Patient transported to radiology with Tech. Normal [facility] ED NOTE HNO ID: [id number] thor: Maria Fernanda Zavala) Esme Bolanosice: (none)Author Type: Registered NurseType: ED NotesFiled: 03/17/2018 12:03 PMNote Text: Patient informed: the name of medication, why we are giving it, possibleside effects, what they may expect to feel, and was offered a chance toask questions, prior to the administration of valium and zofran. Normal [facility] ED NOTE HNO ID: [id number] thor: Maria Fernanda Valdovinos (Rn) THERESA Bolanoservice: (none)Author Type: Registered NurseType: ED NotesFiled: 03/17/2018 10:57 AMNote Text:To ED bed 5 via hospital wheelchair, c/o dizziness since SaturdayNo s/s of distress, moving all extremities. Dr Fong at bedside Normal [facility] ED PROV NOTEon 03-17-2018 Protein mass conc HNO ID: [id number] thor: Markos Fong, MDService: Emergency MedicineAuthor Type: PhysicianType: ED Provider NotesFiled: 03/17/2018 12:11 PMNote Text:ED Provider NotePatient Name: Bo MonteiroMRN: [id number] DATE: 03/17/18HistoryPatient presents with:DizzinessHPIPatient presents with 2 days of vertigo. She describes brief paroxysmslasting a few seconds when she moves her head and resolved with nomovement and looking straight forward. This is quite positional innature, there are no vision changes. No chest pain shortness of breath noparesthesias no numbness or tingling.PAST MEDICAL HISTORYDiagnosis Date- Ectopic fetus tube removedPAST SURGICAL HISTORYProcedure Laterality Date- SECTION HX x 4No family history on file.Social HistorySocial History Main Topics- Smoking status: Former Smoker Types: Cigarettes- Smokeless tobacco: Never Used- Alcohol use 4.2 oz/week 7 Glasses of wine per week- Drug use: No- Sexual activity: Not on fileALLERGIESNo Known AllergiesReview of SystemsConstitutional: Negative for fever.HENT: Negative for drooling, postnasal drip, rhinorrhea and sinus pain.Eyes: Negative for visual disturbance.Respiratory: Negative for chest tightness and wheezing.Cardiovascular: Negative for chest pain.Gastrointestinal: Negative for abdominal pain.Genitourinary: Negative for dyspareunia and flank pain.Musculoskeletal: Negative for back pain and gait problem.Skin: Negative for color change and rash.Neurological: Positive for dizziness. Negative for tremors, seizures,syncope, facial asymmetry, weakness, light-headedness, numbness andheadaches.Psychiatric/Be havioral: Negative for confusion and decreasedconcentration.All other systems reviewed and are negative.Physical ExamBP 148/81 Pulse 92 Temp (Src) 98.5 (Temporal Artery) Resp 16 Ht 5'4 (1.63m) Wt 175 lb (79.4kg) SpO2 97% BMI 30.02 kg/(m2).Physical ExamConstitutional: She is oriented to person, place, and time. She appearswell-developed and well-nourished.HENT:Head: Normocephalic.Right Ear: External ear normal.Left Ear: External ear normal.Eyes: Pupils are equal, round, and reactive to light.Neck: Normal range of motion.Cardiovascular: Normal rate and regular rhythm.No murmur heard.Pulmonary/Chest: Effort normal and breath sounds normal. No respiratorydistress. She has no wheezes.Abdominal: Soft. Bowel sounds are normal. She exhibits no distension.Musculoskeletal: Normal range of motion. She exhibits no edema ordeformity.Neurological: She is alert and oriented to person, place, and time. Shedisplays normal reflexes. No cranial nerve deficit or sensory deficit. Sheexhibits normal muscle tone. Coordination normal.Patient has an NIH stroke scale of 0.she has normal cerebellar exam. She does have some horizontal nystagmusespecially to the left, she has compensating saccade especially on theleft.Skin: Skin is warm. Capillary refill takes less than 2 seconds. Noerythema.Psychiatric: She has a normal mood and affect.Diagnostic TestingED Labs Ordered and Reviewed - No data to displayProceduresED Course / Clinical ImpressionClinical Impressions as of Mar 17 1211Benign paroxysmal positional vertigo, unspecified lateralityMDM / Disposition / PlanMDMPatient's symptoms as well as physical exam are indicative of benignparoxysmal positional vertigo, was treated with Valium and Zofran. Herworkup was unremarkable there is no reason for a stroke workup inpatient.She'll be discharged in stable condition.SIGNATURE: Archie Mccracken MD03/17/18 1211 Normal [facility] Hemogram/Diffon 03-17-2018 Abs. Baso 0.05 thou/cmm Normal 0.00-0.08 [facility] Comment on above: Performed By: #### L CBCD ####[facility] [place], [place] [address] Abs. [place] 0.45 thou/cmm Normal 0.20-1.00 [facility] Comment on above: Performed By: #### L CBCD ####[address] [address] Abs. Neut (ANC) 4.06 thou/cmm Normal 3.00-5.67 [facility] Comment on above: Performed By: #### L CBCD ####[address] [address] Basophils/100 WBC Auto (Bld) 0.8 % Normal [facility] Comment on above: Performed By: #### L CBCD ####[address] [address] Eosinophils Auto #/vol (Bld) 0.24 thou/cmm Normal 0.00-0.41 [facility] Comment on above: Performed By: #### L CBCD ####[address] [address] Eosinophils/100 WBC Auto (Bld) 3.9 % Normal [facility] Comment on above: Performed By: #### L CBCD ####[address] [address] Erythrocyte distribution width Auto Ratio (RBC) 13.1 % Normal 11.5-15.9 [facility] Comment on above: Performed By: #### L CBCD ####[address] [address] Hematocrit Auto Volume Fraction (Bld) 45.2 % Normal 37.0-47.0 [facility] Comment on above: Performed By: #### L CBCD ####[address] [address] Hemoglobin mass conc (Bld) 14.9 g/dL Normal 12.0-16.0 [facility] Comment on above: Performed By: #### L CBCD ####[address] [address] Lymphocytes Auto #/vol (Bld) 1.40 thou/cmm Low 1.50-3.65 [facility] Comment on above: Performed By: #### L CBCD ####[address] [address] Lymphocytes/100 WBC Auto (Bld) 22.6 % Normal [facility] Comment on above: Performed By: #### L CBCD ####[address] [address] MCH Auto Entitic mass (RBC) 30.5 pg Normal 27.0-31.0 [facility] Comment on above: Performed By: #### L CBCD ####[address] [address] MCHC Auto mass conc (RBC) 33.0 % Normal 32.0-36.0 [facility] Comment on above: Performed By: #### L CBCD ####[address] [address] MCV Auto Entitic volume (RBC) 92.4 fL Normal 81.0-99.0 [facility] Comment on above: Performed By: #### L CBCD ####[address] [address] Monocytes/100 WBC Auto (Bld) 7.3 % Normal [facility] Comment on above: Performed By: #### L CBCD ####[address] [address] Platelet mean volume Auto Entitic volume (Bld) 10.1 fL Normal 7.1-10.5 [facility] Comment on above: Performed By: #### L CBCD ####[address] [address] Platelets Auto #/vol (Bld) 251 thou/cmm Normal 150-400 [facility] Comment on above: Performed By: #### L CBCD ####[address] [address] RBC Auto #/vol (Bld) 4.89 mil/cmm Normal 4.20-5.40 [facility] Comment on above: Performed By: #### L CBCD ####[facility] [place], [place] [address] Seg Neutrophil 65.4 % Normal [facility] Comment on above: Performed By: #### L CBCD ####[facility] [place], [place] [address] WBC Auto #/vol (Bld) 6.2 thou/cmm Normal 4.8-10.8 [facility] Comment on above: Performed By: #### L CBCD ####[facility] [place] [id number] MDRD eGFRon 03-17-2018 GFR/1.73 sq M predicted among non-blacks MDRD vol rate/area (S/P/Bld) mL/min/{1.73_m2} Normal >60mL/min/1 .73m2 [facility] Comment on above: Result Comment: If t he patient is , multiply the result by 1.210. Performed By: #### L GFR ####[place] [id number] CNCOon 10-24-2017 CNCO HNO ID: [id number] thor: Mammography CoordinatorService: (none)Author Type: PhysicianType: LetterFiled: 10/28/2017 11:32 PMNote Text:October 24, 2017 PID: [id number] [id number] [place], [place] [address]Inio Ms. Monteiro,Your recent breast imaging examination performed on 10/24/2017 showed anarea that we believe is probably benign (not cancer). You must have areferral/prescription from your physician when calling to schedule yourappointment. A six month follow-up is recommended to ensure your breasthealth. Please call to schedule an appointment for thesetests if you have not already done so.Early detection of cancer is very important. We also understandrecommendations regarding breast cancer screening are controversial.Please discuss with your primary care provider which strategy is best foryou and whether a mammogram is right for you.Your breast images and report will be kept on file here as part of yourpermanent medical record and are available for your continuing care.Thank you for allowing us to help in meeting your health care needs.Sincerely,Dr. Gomez [facility] (# mo Follow-up) [facility] CNCO HNO ID: [id number] thor: Mammography CoordinatorService: (none)Author Type: PhysicianType: LetterFiled: 10/28/2017 11:32 PMNote Text:October 24, 2017 PID: [id number] [id number] [place], [place] [address]Gwwo Ms. Monteiro,Your recent breast imaging examination performed on 10/24/2017 showed anarea that we believe is probably benign (not cancer). You must have areferral/prescription from your physician when calling to schedule yourappointment. A six month follow-up is recommended to ensure your breasthealth. Please call to schedule an appointment for thesetests if you have not already done so.Early detection of cancer is very important. We also understandrecommendations regarding breast cancer screening are controversial.Please discuss with your primary care provider which strategy is best foryou and whether a mammogram is right for you.Your breast images and report will be kept on file here as part of yourpermanent medical record and are available for your continuing care.Thank you for allowing us to help in meeting your health care needs.Sincerely,Dr. Gomez [facility] (# mo Follow-up) [facility] DIAGNOSTIC BILon 018 [facility] DIAGNOSTIC TRACEE * * *Final Report* * *DATE OF EXAM: Oct 24 2017 12:56PM CHRIS 0620 - [facility] DIAGNOSTIC TRACEE / REASON: breast mass n63 right * * * * Physician Interpretation * * * * #[id number] - [facility] DIAGNOSTIC BILBILATERAL DIGITAL DIAGNOSTIC MAMMOGRAM WITH CAD: 10/24/2017HISTORY: Breast Mass N63 Right /Bilateral Diagnostic Mammogram;Call Back/Abnormal Mammogram.RESULT:TECHNIQUE: The study was acquired using full field digital technology and interpreted from soft copy.Current study was also evaluated with a Computer Aided Detection (CAD).Comparison is made to exam dated: 10/11/2017 mammogram - [facility].The tissue of both breasts is predominantly fatty.Prior asymmetric density is no longer seen in the left breast.There is an asymmetry in the right breast at 11 o'clock posterior depth. There is a post surgical scar associated with the asymmetry.No other significant masses, calcifications, or other findings are seen in either breast.PROBABLY BENIGN - SHORT TERM INTERVAL FOLLOW-UP RECOMMENDEDThe asymmetry in the right breast is probably benign.#[id number] - [facility] [place] BREAST Talyst RTULTRASOUND OF RIGHT BREAST: 10/24/2017RESULT:Comparison is made to exam dated: 10/11/2017 mammogram - [facility].Ultrasound of the right breast was performed. Malave scale images of the real-time examination were reviewed.There is an area of fibroglandular tissue in the right breast upper outer aspect middle depth. This correlates with mammography findings. There is associated architectural distortion.IMPRESSION: PROBABLY BENIGN - SHORT TERM INTERVAL FOLLOW-UP RECOMMENDED - FOLLOW-UP RECOMMENDEDThe area of fibroglandular tissue in the right breast is probably benign.A follow-up right mammogram in 6 months is recommended to demonstrate stability.SUMMARY:Cannot be certain the mammographic findings and ultrasound finding correspond to same lesion. Therefore, 6 mo follow up recommended.Dimitri España/porfiriorad:10/24/2017 13:35:38Imaging Technologist: Shelley MINA(R)(M), [facility]: # Mo FU OVERALL STUDY BIRADS: 3 Probably benign finding - short term interval follow-up recommendedTranscriptionist : CharleneTranscribjasper Date/Time: Oct 24 2017 12:38PDictated by : Vini STUART examination was interpreted and the report reviewed and electronically signed by: DIMITRI BARRAZA DO on Oct 24 2017 1:35PM [id number] Normal [facility] US BREAST LTD RTon 10-24 [facility] US BREAST LTD RT * * *Final Report* * *DATE OF EXAM: Oct 24 2017 1:31PM TONI 0594 - [facility] [place] BREAST Talyst RT / REASON: ABNORMAL MAMMOGRAM * * * * Physician Interpretation * * * * #[id number] - [facility] DIAGNOSTIC BILBILATERAL DIGITAL DIAGNOSTIC MAMMOGRAM WITH CAD: 10/24/2017HISTORY: Breast Mass N63 Right /Bilateral Diagnostic Mammogram;Call Back/Abnormal Mammogram.RESULT:TECHNIQUE: The study was acquired using full field digital technology and interpreted from soft copy.Current study was also evaluated with a Computer Aided Detection (CAD).Comparison is made to exam dated: 10/11/2017 mammogram - [facility].The tissue of both breasts is predominantly fatty.Prior asymmetric density is no longer seen in the left breast.There is an asymmetry in the right breast at 11 o'clock posterior depth. There is a post surgical scar associated with the asymmetry.No other significant masses, calcifications, or other findings are seen in either breast.PROBABLY BENIGN - SHORT TERM INTERVAL FOLLOW-UP RECOMMENDEDThe asymmetry in the right breast is probably benign.#[id number] - [facility] US BREAST LTD RTULTRASOUND OF RIGHT BREAST: 10/24/2017RESULT:Comparison is made to exam dated: 10/11/2017 mammogram - [facility].Ultrasound of the right breast was performed. Malave scale images of the real-time examination were reviewed.There is an area of fibroglandular tissue in the right breast upper outer aspect middle depth. This correlates with mammography findings. There is associated architectural distortion.IMPRESSION: PROBABLY BENIGN - SHORT TERM INTERVAL FOLLOW-UP RECOMMENDED - FOLLOW-UP RECOMMENDEDThe area of fibroglandular tissue in the right breast is probably benign.A follow-up right mammogram in 6 months is recommended to demonstrate stability.SUMMARY:Cannot be certain the mammographic findings and ultrasound finding correspond to same lesion. Therefore, 6 mo follow up recommended.Dimitri España/charlene:10/24/2017 13:35:38Imaging Technologist: Shelley MINA(Jasbir)(Susanna), [facility]: # Mo FU OVERALL STUDY BIRADS: 3 Probably benign finding - short term interval follow-up recommendedTranscriptionist : CharleneTranscribe Date/Time: Oct 24 2017 12:38PDictated by : Vini STUART examination was interpreted and the report reviewed and electronically signed by: DIMITRI BARRAZA DO on Oct 24 2017 1:35PM [id number] Normal [facility] CNCOon 10-11-2017 CNCO HNO ID: [id number] thor: Mammography CoordinatorService: (none)Author Type: PhysicianType: LetterFiled: 2017 11:33 PMNote Text:October 11, 2017 PID: [id number] [place], [place] [address]Xapk Ms. Monteiro,Your recent breast imaging exam on 10/11/2017 showed a possible findingthat requires additional imaging studies for a complete evaluation. Mostsuch findings are probably benign (not cancer). You must have areferral/prescription from your physician when calling to schedule yourappointment. Please call to schedule an appointment forthese tests if you have not already done so.Your breast images and report will be kept on file here as part of yourpermanent medical record and are available for your continuing care.Thank you for allowing us to help in meeting your health care needs.Sincerely,Dr. BarrazaInterpreting [facility] ([facility]) [facility] SCREENINGon 10-11-2017 [facility] SCREENING * * *Final Report* * *DATE OF EXAM: Oct 11 2017 10:29AM CHRIS [id number] - [facility] SCREENING / REASON: Z12.39 SCREENING * * * * Physician Interpretation * * * * #[id number] - [facility] SCREENINGBILATERAL DIGITAL SCREENING MAMMOGRAM WITH CAD: 10/11/2017HISTORY: Z12.39 Screening /Screening Mammogram - patient reports NO symptoms/NEW BASELINE, LAST ABOUT 13 YRS AGO.RESULT:TECHNIQUE: The study was acquired using full field digital technology and interpreted from soft copy.Current study was also evaluated with a Computer Aided Detection (CAD).No prior exams were available for comparison.The tissue of both breasts is predominantly fatty.There is an asymmetry in the right breast at 11 o'clock middle depth.There is an asymmetry in the left breast posterior depth lateral region seen on the craniocaudal view only.No other significant masses or calcifications are seen in either breast.IMPRESSION: INCOMPLETE: NEEDS ADDITIONAL IMAGING EVALUATIONThe asymmetry in the right breast at 11 o'clock middle depth is indeterminate. Spot compression and lateral views as well as a possible ultrasound are recommended.The asymmetry in the left breast posterior depth lateral region seen on the craniocaudal view only is indeterminate. Exaggerated CC, spot compression, and lateral views as well as a possible ultrasound are recommended.Dimitri España/charlene:10/11/2017 12:57:42Imaging Technologist: Lisa Greco RT(R)(Susanna), [facility]letter sent: Additional Imaging NeededMammogram BI-RADS: 0 Incomplete: needs additional imaging evaluationTranscriptionist: Juan Date/Time: Oct 11 2017 10:18ADictated by : Vini STUART examination was interpreted and the report reviewed and electronically signed by: DIMITRI BARRAZA DO on Oct 11 2017 12:57PM [id number] Normal [facility] CHEST 2 VIEWSon 05-18-2017 Protein mass conc Performed at [facility] APPROVED BY: Tree Hernandez MD EXAMINATION: CHEST RADIOGRAPH (2 VIEW FRONTAL & LATERAL) Clinical History: Chest painM: XC2_3Comparison: 08/17/2015 RESULT: Lines, tubes, and devices: None. Lungs and pleura: Mild hyperinflation. No pneumonia, congestion or pleural effusion. Cardiomediastinal silhouette: Normal cardiomediastinal silhouette. Other: No acute bony abnormality. IMPRESSION: No acute radiographic abnormality. Normal [facility] ED NOTEon 05-18-2017 ED NOTE HNO ID: [id number] thor: Valeria (Rn) THERESA Mnuozervice: Emergency MedicineAuthor Type: Registered NurseType: ED NotesFiled: 05/18/2017 10:41 AMNote Text:Pt was leaning over a fence and felt a pop. Pt now having l rib pain thatis getting worse Normal [facility] ED PROV NOTEon 05-18-2017 Protein mass conc HNO ID: [id number] thor: DION Blairervice: Emergency MedicineAuthor Type: PhysicianType: ED Provider NotesFiled: 05/18/2017 11:53 AMNote Text:ED Provider NotePatient Name: Bo MonteiroMRN: [id number] DATE: 05/18/17HistoryPatient presents with:Rib InjuryPatient is a 61 year old female presenting with chest pain.History provided by: Kyrie PainPain location: L chestPain quality: dull and sharpPain quality: not aching, not burning, not crushing, not hot and nopressurePain quality comment: Bending over a fence 1 wk ago, felt pop still witthpain, no other CO NO CADPain radiates to: Does not radiateContext: movementRelieved by: None triedWorsened by: MovementAssociated symptoms: no abdominal pain, no AICD problem, no altered mentalstatus, no anorexia, no anxiety and no back painROS ALL NEGPAST MEDICAL HISTORYDiagnosis Date- Ectopic fetus tube removedPAST SURGICAL HISTORYProcedure Laterality Date- SECTION HX x 4No family history on file.Social HistorySocial History Main Topics- Smoking status: Former Smoker Types: Cigarettes- Smokeless tobacco: None- Alcohol use 4.2 oz/week 7 Glasses of wine per week- Drug use: No- Sexual activity: Not AskedALLERGIESNo Known AllergiesReview of SystemsCardiovascular: Positive for chest pain.Gastrointestinal: Negative for abdominal pain and anorexia.Musculoskeletal: Negative for back pain.Physical ExamBP 143/87 Pulse 72 Temp 98 Resp 18 Ht 5' 4 (1.63m) Wt 179 lb(81.2kg) SpO2 98% BMI 30.71 kg/(m2).Physical ExamConstitutional: She appears well-developed.HENT:Head: Normocephalic.Eyes: Pupils are equal, round, and reactive to light.Neck: Normal range of motion.Cardiovascular: Normal rate.Pulmonary/Chest: Effort normal. No respiratory distress. She has nowheezes. She has no rales. She exhibits tenderness.Abdominal: Soft.Musculoskeletal: Normal range of motion.Neurological: She is alert.Skin: Skin is warm.To palp left chest under breast no crepDiagnostic TestingED Labs Ordered and Reviewed - No data to displayProceduresMedical Decision Making / ED CourseED CourseXray negDW her possiblity of rib fxWill fu pcp, ED inc sx [place] painNo diagnosis found.PlanThe Patient was DISCHARGED: Counseled patient regarding suspecteddiagnosis AND need for follow-up. Discharged home with verbal and writteninstructions. They were instructed to return as needed for persistent orworsening symptoms or any new concerns.Condition at time of disposition: stableSIGNATURE: Tyrell Franco MD05/18/17 1153 Normal [facility] Vital Signs Date Time Vital Sign Value Performing Clinician Facility 07-25-2025 11:14-0400 Body height 154.94 cm Loan Dias P[employer] Work Phone: [facility] 03-12-2025 11:14-0400 Body mass index (BMI) [Ratio] 35.1 kg/m2 Loan Dias [employer] Work Phone: [facility] 03-12-2025 11:14-0400 Body weight 84.36 kg Loan Dias [employer] Work Phone: [facility] 03-12-2025 11:14-0400 Diastolic blood pressure 79 mm[Hg] Loan Dias [employer] Work Phone: [facility] 03-12-2025 11:14-0400 Heart rate 80 /min Loanaruna Dias [employer] Work Phone: [facility] 03-12-2025 11:14-0400 Respiratory rate 16 /min Loan Dias [employer] Work Phone: [facility] 03-12-2025 11:14-0400 Systolic blood pressure 113 mm[Hg] Loan Dias [employer] Work Phone: [facility] 03-10-2025 13:47-0400 Body height 154.94 cm Loan Dias [employer] Work Phone: [facility] 03-10-2025 13:47-0400 Body mass index (BMI) [Ratio] 34 kg/m2 Loanaruna Dias [employer] Work Phone: [facility] 03-10-2025 13:47-0400 Body weight 81.7 kg Loan Dias [employer] Work Phone: [facility] 03-10-2025 08:54-0400 Body height 154.9 cm Jarred Suh DPM Work Phone: [facility] 03-10-2025 08:54-0400 Body mass index (BMI) [Ratio] 33.63 kg/m2 Jarred Suh DPM Work Phone: [facility] 03-10-2025 08:54-0400 Body weight 80.74 kg Jarred Suh DPM Work Phone: [facility] 03-10-2025 08:54-0400 Respiratory rate 18 /min Jarred Suh DPM Work Phone: [facility] 12-14-2024 15:36-0400 Body mass index (BMI) [Ratio] 33.6 kg/m2 Loan Dias [employer] Work Phone: [facility] 12-14-2024 15:36-0400 Body temperature 96.7 [degF] Loan Dias [employer] Work Phone: [facility] 12-14-2024 15:36-0400 Body weight 80.73 kg Loan Dias [employer] Work Phone: [facility] 12-14-2024 15:36-0400 Diastolic blood pressure 84 mm[Hg] Loan Dias [employer] Work Phone: [facility] 12-14-2024 15:36-0400 Heart rate 63 /min Lona Dias [employer] Work Phone: [facility] 12-14-2024 15:36-0400 Respiratory rate 16 /min Loan Dias [employer] Work Phone: [facility] 12-14-2024 15:36-0400 SaO2% (BldA) [Mass fraction] 100 % Loan Dias [employer] Work Phone: [facility] 12-14-2024 15:36-0400 Systolic blood pressure 144 mm[Hg] Loan Dias [employer] Work Phone: [facility] 12-09-2024 11:01-0400 Body temperature 98.29 [degF] Nurse Pob Work Phone: [facility] 11-04-2024 14:42-0400 Body mass index (BMI) [Ratio] 31.18 kg/m2 Francisco Gorman MD Work Phone: [facility] 11-04-2024 14:42-0400 Body weight 74.84 kg Francisco Gorman MD Work Phone: [facility] 11-04-2024 14:42-0400 Diastolic blood pressure 87 mm[Hg] Francisco Gorman MD Work Phone: [facility] 11-04-2024 14:42-0400 Heart rate 76 /min Francisco Gorman MD Work Phone: [facility] 11-04-2024 14:42-0400 SaO2% (BldA) [Mass fraction] 98 % Francisco Gorman MD Work Phone: [facility] 11-04-2024 14:42-0400 Systolic blood pressure 143 mm[Hg] Francisco Gorman MD Work Phone: [facility] 10-28-2024 10:07-0400 Body mass index (BMI) [Ratio] 31.55 kg/m2 Smith Lopez MD Work Phone: [facility] 10-28-2024 10:07-0400 Body weight 75.75 kg Smith Lopez MD Work Phone: [facility] 10-28-2024 10:07-0400 Diastolic blood pressure 80 mm[Hg] Smith Lopez MD Work Phone: [facility] 10-28-2024 10:07-0400 Heart rate 73 /min Smith Lopez MD Work Phone: [facility] 10-28-2024 10:07-0400 SaO2% (BldA) [Mass fraction] 98 % Smith Lopez MD Work Phone: [facility] 10-28-2024 10:07-0400 Systolic blood pressure 138 mm[Hg] Smith Lopez MD Work Phone: [facility] 10-27-2024 14:34-0400 Body height 154.94 cm Loan Dias [employer] Work Phone: [facility] 10-27-2024 14:34-0400 Body mass index (BMI) [Ratio] 32.7 kg/m2 Loanaruna Dias [employer] Work Phone: [facility] 10-27-2024 14:34-0400 Body temperature 97.8 [degF] Loanaruna GarciaDias P[employer]-C Work Phone: [facility] 10-27-2024 14:34-0400 Body weight 78.52 kg Loanaruna Dias [employer] Work Phone: [facility] 10-27-2024 14:34-0400 Diastolic blood pressure 76 mm[Hg] Loan Dias [employer] Work Phone: [facility] 10-27-2024 14:34-0400 Heart rate 86 /min Loanaruna Dias [employer] Work Phone: [facility] 10-27-2024 14:34-0400 Respiratory rate 18 /min Loan Dias [employer] Work Phone: [facility] 10-27-2024 14:34-0400 SaO2% (BldA) [Mass fraction] 100 % Loanaruna Dias [employer] Work Phone: [facility] 10-27-2024 14:34-0400 Systolic blood pressure 174 mm[Hg] Loanaruna Dias [employer] Work Phone: [facility] 10-08-2024 17:44-0500 Body mass index (BMI) [Ratio] 32.3 kg/m2 Loanaruna Dias [employer] Work Phone: [facility] 10-08-2024 17:44-0500 Body temperature 97.7 [degF] Loan Dias [employer] Work Phone: [facility] 10-08-2024 17:44-0500 Body weight 77.56 kg Loanaruna Dias [employer] Work Phone: [facility] 10-08-2024 17:44-0500 Diastolic blood pressure 60 mm[Hg] Loan Dias [employer] Work Phone: [facility] 10-08-2024 17:44-0500 Heart rate 80 /min Loan Dias [employer] Work Phone: [facility] 10-08-2024 17:44-0500 Respiratory rate 18 /min Loan Dias [employer] Work Phone: [facility] 10-08-2024 17:44-0500 SaO2% (BldA) [Mass fraction] 98 % Loan Dias [employer] Work Phone: [facility] 10-08-2024 17:44-0500 Systolic blood pressure 140 mm[Hg] Loan Dias P[employer]-C Work Phone: [facility] 09-21-2024 10:29-0500 Body mass index (BMI) [Ratio] 32.9 kg/m2 Loan Dias [employer] Work Phone: [facility] 09-21-2024 10:29-0500 Body temperature 98.3 [degF] Loan Dias [employer] Work Phone: [facility] 09-21-2024 10:29-0500 Body weight 79.03 kg Loan Dias [employer] Work Phone: [facility] 09-21-2024 10:29-0500 Diastolic blood pressure 85 mm[Hg] Loan Dias [employer]-C Work Phone: [facility] 09-21-2024 10:29-0500 Heart rate 77 /min Loan Dias [employer] Work Phone: [facility] 09-21-2024 10:29-0500 Respiratory rate 18 /min Loan Dias [employer] Work Phone: [facility] 02-03-2025 10:29-0500 SaO2% (BldA) [Mass fraction] 98 % Loan Dias [employer]C Work Phone: [facility] 09-21-2024 10:29-0500 Systolic blood pressure 124 mm[Hg] Loan Dias P[employer]-C Work Phone: [facility] 09-10-2024 15:00-0500 Diastolic blood pressure 71 mm[Hg] Smith Lopez MD Work Phone: [facility] 09-10-2024 15:00-0500 Systolic blood pressure 121 mm[Hg] Smith Lopez MD Work Phone: [facility] 09-10-2024 14:30-0500 Heart rate 88 /min Smith Lopez MD Work Phone: [facility] 09-10-2024 14:30-0500 Respiratory rate 28 /min Smith Lopez MD Work Phone: [facility] 09-10-2024 14:30-0500 SaO2% (BldA) [Mass fraction] 97 % Smith Lopez MD Work Phone: [facility] 08-31-2024 09:07-0500 Body mass index (BMI) [Ratio] 33.5 kg/m2 Loan Dias [employer] Work Phone: [facility] 08-31-2024 09:07-0500 Body weight 80.45 kg Loan Dias [employer] Work Phone: [facility] 07-27-2024 10:20-0500 Body height 154.9 cm Ling Harding ASSISTANT GENERAL MANAGER.[employer] Work Phone: [facility] 07-27-2024 10:20-0500 Body mass index (BMI) [Ratio] 32.12 kg/m2 Ling Harding ASSISTANT GENERAL MANAGER.[employer] Work Phone: [facility] 07-27-2024 10:20-0500 Body weight 77.11 kg Ling Harding APRN.[employer] Work Phone: [facility] 07-27-2024 10:20-0500 Diastolic blood pressure 72 mm[Hg] Ling Harding ASSISTANT GENERAL MANAGER.[employer] Work Phone: [facility] 07-27-2024 10:20-0500 Heart rate 81 /min Ling Harding ASSISTANT GENERAL MANAGER.[employer] Work Phone: [facility] 07-27-2024 10:20-0500 Systolic blood pressure 125 mm[Hg] Ling Harding ASSISTANT GENERAL MANAGER.[employer] Work Phone: [facility] 06-24-2024 10:09-0500 Body height 154.9 cm Smith Lopez MD Work Phone: [facility] 06-24-2024 10:09-0500 Body mass index (BMI) [Ratio] 32.69 kg/m2 Smith Lopez MD Work Phone: [facility] 06-24-2024 10:09-0500 Body weight 78.47 kg Smith Lopez MD Work Phone: [facility] 06-24-2024 10:09-0500 Diastolic blood pressure 80 mm[Hg] Smith Lopez MD Work Phone: [facility] 06-24-2024 10:09-0500 Heart rate 92 /min Smith Lopez MD Work Phone: [facility] 06-24-2024 10:09-0500 Respiratory rate 18 /min Smith Lopez MD Work Phone: [facility] 06-24-2024 10:09-0500 SaO2% (BldA) [Mass fraction] 98 % Smith Lopez MD Work Phone: [facility] 06-24-2024 10:09-0500 Systolic blood pressure 120 mm[Hg] Smith Lopez MD Work Phone: [facility] 06-09-2024 13:23-0400 Body height 154.9 cm Ling Harding APRN.[employer] Work Phone: [facility] 06-09-2024 13:23-0400 Body mass index (BMI) [Ratio] 31.74 kg/m2 Ling Mikula ASSISTANT GENERAL MANAGER.[employer] Work Phone: [facility] 06-09-2024 13:23-0400 Body weight 76.2 kg Ling Mikula ASSISTANT GENERAL MANAGER.[employer] Work Phone: [facility] 06-09-2024 13:23-0400 Diastolic blood pressure 88 mm[Hg] Ling Mikula ASSISTANT GENERAL MANAGER.[employer] Work Phone: [facility] 06-09-2024 13:23-0400 Heart rate 82 /min Ling Mikula ASSISTANT GENERAL MANAGER.[employer] Work Phone: [facility] 06-09-2024 13:23-0400 Systolic blood pressure 150 mm[Hg] Ling Mikula ASSISTANT GENERAL MANAGER.[employer] Work Phone: [facility] 12-21-2023 10:27-0400 Body height 154.94 cm PULLER [employer]-C Loan Dias PULLER OUT Work Phone: [facility] 12-21-2023 10:27-0400 Body mass index (BMI) [Ratio] 33.8 kg/m2 [employer] Loan Dias P[employer]ER OUT Work Phone: [facility] 12-21-2023 10:27-0400 Body temperature 96.9 [degF] P[employer]ER [employer] Loan Dias PULLER OUT Work Phone: [facility] 12-21-2023 10:27-0400 Body weight 81.19 kg P[employer]ER [employer]-C Loan Dias PULLER OUT Work Phone: [facility] 12-21-2023 10:27-0400 Diastolic blood pressure 85 mm[Hg] PULLER [employer]-C Loan Dias PULLER OUT Work Phone: [facility] 12-21-2023 10:27-0400 Heart rate 60 /min P[employer] Loan Dias P[employer]ER OUT Work Phone: [facility] 12-21-2023 10:27-0400 Respiratory rate 14 /min [employer] Loan Dias P[employer]ER OUT Work Phone: [facility] 12-21-2023 10:27-0400 SaO2% (BldA) [Mass fraction] 97 % [employer] Loan Garciason PULLER OUT Work Phone: [facility] 12-21-2023 10:27-0400 Systolic blood pressure 107 mm[Hg] P[employer] Loan Garciason PULLER OUT Work Phone: [facility] 12-12-2023 15:09-0400 Body temperature 98.1 [degF] P[employer]-C Loan Garciason PULLER OUT Work Phone: [facility] 12-12-2023 15:09-0400 Diastolic blood pressure 74 mm[Hg] P[employer]ER [employer]-C Loan Dias P[employer]ER OUT Work Phone: [facility] 12-12-2023 15:09-0400 Heart rate 82 /min [employer] Loan Dias P[employer]ER OUT Work Phone: [facility] 12-12-2023 15:09-0400 Respiratory rate 16 /min P[employer] Loan Dias P[employer]ER OUT Work Phone: [facility] 12-12-2023 15:09-0400 SaO2% (BldA) [Mass fraction] 99 % P[employer] Loan Dias P[employer]ER OUT Work Phone: [facility] 12-12-2023 15:09-0400 Systolic blood pressure 138 mm[Hg] P[employer]ER [employer]-C Loan Dias PULLER OUT Work Phone: [facility] 12-12-2023 12:25-0400 Body height 154.94 cm P[employer]ER [employer]-C Loan Dias P[employer]ER OUT Work Phone: [facility] 12-12-2023 12:25-0400 Body mass index (BMI) [Ratio] 34.2 kg/m2 [employer] Loan Garciason PULLER OUT Work Phone: [facility] 12-12-2023 12:25-0400 Body weight 82.29 kg P[employer]ER [employer]-C Loan Dias P[employer]ER OUT Work Phone: [facility] 12-03-2023 16:05-0400 Body temperature 98.3 [degF] P[employer]ER [employer] Loan Dias P[employer]ER OUT Work Phone: [facility] 12-03-2023 16:05-0400 Diastolic blood pressure 75 mm[Hg] P[employer]ER [employer]-C Loan Dias P[employer]ER OUT Work Phone: [facility] 12-03-2023 16:05-0400 Heart rate 70 /min [employer] Loan Dias P[employer]ER OUT Work Phone: [facility] 12-03-2023 16:05-0400 Respiratory rate 16 /min P[employer] Loan Dias P[employer]ER OUT Work Phone: [facility] 12-03-2023 16:05-0400 SaO2% (BldA) [Mass fraction] 96 % P[employer] Loan Dias P[employer]ER OUT Work Phone: [facility] 12-03-2023 16:05-0400 Systolic blood pressure 132 mm[Hg] P[employer]ER [employer] Loan Dias P[employer]ER OUT Work Phone: [facility] 12-03-2023 14:30-0400 Inhaled oxygen flow rate 1 L/min [employer] Loan Dias P[employer]ER OUT Work Phone: [facility] 12-03-2023 09:37-0400 Body height 154.94 cm P[employer]ER [employer]-C Loan Dias P[employer]ER OUT Work Phone: [facility] 12-03-2023 09:37-0400 Body mass index (BMI) [Ratio] 34.3 kg/m2 [employer] Loan Dias P[employer]ER OUT Work Phone: [facility] 12-03-2023 09:37-0400 Body weight 82.5 kg P[employer]ER [employer]-C Loan Dias P[employer]ER OUT Work Phone: [facility] 11-04-2023 11:12-0400 Body height 154.94 cm P[employer]ER [employer]-C Loan Dias PULLER OUT Work Phone: [facility] 11-04-2023 11:12-0400 Body mass index (BMI) [Ratio] 35.3 kg/m2 [employer] Loan Dias P[employer]ER OUT Work Phone: [facility] 11-04-2023 11:12-0400 Body weight 84.82 kg P[employer]ER OUT-C Loan Dias P[employer]ER OUT Work Phone: [facility] 11-04-2023 11:12-0400 Diastolic blood pressure 77 mm[Hg] P[employer]ER [employer]-C Loan Dias P[employer]ER OUT Work Phone: [facility] 11-04-2023 11:12-0400 Heart rate 76 /min P[employer] Loan Dias P[employer]ER OUT Work Phone: [facility] 11-04-2023 11:12-0400 Respiratory rate 18 /min P[employer] Loan Dias P[employer]ER OUT Work Phone: [facility] 11-04-2023 11:12-0400 SaO2% (BldA) [Mass fraction] 100 % P[employer]ER [employer]-C Loan Dias P[employer]ER OUT Work Phone: [facility] 11-04-2023 11:12-0400 Systolic blood pressure 115 mm[Hg] P[employer]ER [employer]-C Loan Dias PULLER OUT Work Phone: [facility] 11-04-2023 08:58-0400 Body mass index (BMI) [Ratio] 35.3 kg/m2 [employer] Loan Dias P[employer]ER OUT Work Phone: [facility] 11-04-2023 08:58-0400 Body temperature 97.6 [degF] P[employer]ER [employer]-C Loan Dias PULLER OUT Work Phone: [facility] 11-04-2023 08:58-0400 Body weight 84.85 kg PULLER OUT-C Loan Dias PULLER OUT Work Phone: [facility] 11-04-2023 08:58-0400 Diastolic blood pressure 75 mm[Hg] P[employer]ER [employer]-C Loan Dias PULLER OUT Work Phone: [facility] 11-04-2023 08:58-0400 Heart rate 83 /min P[employer]ER [employer] Loan Dias P[employer]ER OUT Work Phone: [facility] 11-04-2023 08:58-0400 Respiratory rate 16 /min P[employer]ER [employer] Loan Garciason PULLER OUT Work Phone: [facility] 11-04-2023 08:58-0400 SaO2% (BldA) [Mass fraction] 97 % P[employer]ER [employer]-C Loan Dias P[employer]ER OUT Work Phone: [facility] 11-04-2023 08:58-0400 Systolic blood pressure 110 mm[Hg] PULLER [employer]-C Loan Dias P[employer]ER OUT Work Phone: [facility] 10-11-2023 17:46-0500 Body mass index (BMI) [Ratio] 36.2 kg/m2 P[employer] Loan Dias P[employer]ER OUT Work Phone: [facility] 10-11-2023 17:46-0500 Body temperature 97.5 [degF] P[employer]ER [employer]-C Loan Dias P[employer]ER OUT Work Phone: [facility] 10-11-2023 17:46-0500 Body weight 87.08 kg PULLER OUT-C Loan Dias PULLER OUT Work Phone: [facility] 10-11-2023 17:46-0500 Diastolic blood pressure 80 mm[Hg] P[employer]ER [employer]-C [employer] Work Phone: [facility] 10-11-2023 17:46-0500 Heart rate 76 /min [employer] Garciason [employer] Work Phone: [facility] 10-11-2023 17:46-0500 Respiratory rate 18 /min [employer] Work Phone: [facility] 10-11-2023 17:46-0500 SaO2% (BldA) [Mass fraction] 98 % [employer] Work Phone: [facility] 10-11-2023 17:46-0500 Systolic blood pressure 142 mm[Hg] [employer] Work Phone: [facility] 09-23-2023 10:37-0500 Body height 154.94 cm P[employer] Work Phone: [facility] 09-23-2023 10:37-0500 Body mass index (BMI) [Ratio] 36.7 kg/m2 [employer] Work Phone: [facility] 09-23-2023 10:37-0500 Body temperature 99.1 [degF] [employer] Work Phone: [facility] 09-23-2023 10:37-0500 Body weight 88.11 kg [employer] Work Phone: [facility] 09-23-2023 10:37-0500 Diastolic blood pressure 72 mm[Hg] [employer] Work Phone: [facility] 09-23-2023 10:37-0500 Heart rate 75 /min [employer] Work Phone: [facility] 09-23-2023 10:37-0500 Respiratory rate 18 /min P[employer] Work Phone: [facility] 09-23-2023 10:37-0500 SaO2% (BldA) [Mass fraction] 99 % [employer] Work Phone: [facility] 09-23-2023 10:37-0500 Systolic blood pressure 105 mm[Hg] [employer] Work Phone: [facility] 09-09-2023 10:18-0500 Body mass index (BMI) [Ratio] 37.3 kg/m2 [employer] Work Phone: [facility] 09-09-2023 10:18-0500 Body weight 89.58 kg P[employer]-C [employer] Work Phone: [facility] 08-06-2023 13:28-0500 Body height 154.94 cm [employer] Work Phone: [facility] 08-06-2023 13:28-0500 Body mass index (BMI) [Ratio] 38.1 kg/m2 [employer] Work Phone: [facility] 08-06-2023 13:28-0500 Body weight 91.62 kg [employer] Work Phone: [facility] 08-06-2023 13:28-0500 Diastolic blood pressure 82 mm[Hg] [employer] Work Phone: [facility] 08-06-2023 13:28-0500 Heart rate 79 /min [employer] Work Phone: [facility] 08-06-2023 13:28-0500 Respiratory rate 18 /min [employer] Work Phone: [facility] 08-06-2023 13:28-0500 SaO2% (BldA) [Mass fraction] 99 % [employer] Work Phone: [facility] 08-06-2023 13:28-0500 Systolic blood pressure 125 mm[Hg] P[employer] Work Phone: [facility] 07-29-2023 19:57-0500 Body height 154.94 cm [employer] Work Phone: [facility] 07-29-2023 19:57-0500 Body mass index (BMI) [Ratio] 38.5 kg/m2 [employer] Work Phone: [facility] 07-29-2023 19:57-0500 Body temperature 97.9 [degF] [employer] Work Phone: [facility] 07-29-2023 19:57-0500 Body weight 92.53 kg P[employer]-C [employer] Work Phone: [facility] 07-29-2023 19:57-0500 Diastolic blood pressure 90 mm[Hg] [employer] Work Phone: [facility] 07-29-2023 19:57-0500 Heart rate 79 /min [employer] Work Phone: [facility] 07-29-2023 19:57-0500 Respiratory rate 18 /min [employer] Work Phone: [facility] 07-29-2023 19:57-0500 SaO2% (BldA) [Mass fraction] 98 % [employer] Work Phone: [facility] 07-29-2023 19:57-0500 Systolic blood pressure 148 mm[Hg] [employer] Work Phone: [facility] 05-27-2023 10:24-0400 Body mass index (BMI) [Ratio] 39.1 kg/m2 [employer] Work Phone: [facility] 05-27-2023 10:24-0400 Body temperature 98.5 [degF] [employer] Work Phone: [facility] 05-27-2023 10:24-0400 Body weight 93.95 kg P[employer] Work Phone: [facility] 05-27-2023 10:24-0400 Diastolic blood pressure 85 mm[Hg] [employer] Work Phone: [facility] 05-27-2023 10:24-0400 Heart rate 72 /min [employer] Work Phone: [facility] 05-27-2023 10:24-0400 Respiratory rate 18 /min [employer] Work Phone: [facility] 05-27-2023 10:24-0400 SaO2% (BldA) [Mass fraction] 97 % [employer] Work Phone: [facility] 05-27-2023 10:24-0400 Systolic blood pressure 129 mm[Hg] P[employer]-C [employer] Work Phone: [facility] 05-06-2023 08:58-0400 Body mass index (BMI) [Ratio] 38.5 kg/m2 [employer] Work Phone: [phone])[phone] [place] [address] 05-06-2023 08:58-0400 Body temperature 97.4 [degF] [employer] Work Phone: [phone])[phone] [place] [address] 05-06-2023 08:58-0400 Body weight 92.61 kg [employer] Work Phone: [facility] 05-06-2023 08:58-0400 Diastolic blood pressure 89 mm[Hg] P[employer]ER OUT-C Loan Garciason P[employer]ER OUT Work Phone: [facility] 05-06-2023 08:58-0400 Heart rate 72 /min [employer] Work Phone: [facility] 05-06-2023 08:58-0400 Respiratory rate 18 /min P[employer]-C [employer] Garciason P[employer]ER [employer] Work Phone: [facility] 05-06-2023 08:58-0400 SaO2% (BldA) [Mass fraction] 98 % P[employer]-C [employer] Garciason P[employer]ER [employer] Work Phone: [facility] 05-06-2023 08:58-0400 Systolic blood pressure 133 mm[Hg] P[employer]-C [employer] Garciason P[employer]ER OUT Work Phone: [facility] 07-19-2023 10:07-0400 Body height 154.94 cm [employer] Work Phone: [facility] 03-06-2023 10:07-0400 Body mass index (BMI) [Ratio] 38.4 kg/m2 [employer] Work Phone: [facility] 03-06-2023 10:07-0400 Body weight 92.19 kg [employer] Work Phone: [facility] 03-06-2023 10:07-0400 Diastolic blood pressure 91 mm[Hg] [employer] Work Phone: [facility] 03-06-2023 10:07-0400 Heart rate 89 /min [employer] Work Phone: [facility] 03-06-2023 10:07-0400 Respiratory rate 18 /min [employer] Work Phone: [facility] 03-06-2023 10:07-0400 SaO2% (BldA) [Mass fraction] 98 % [employer] Work Phone: [facility] 03-06-2023 10:07-0400 Systolic blood pressure 159 mm[Hg] [employer] Work Phone: [facility] 02-28-2023 09:32-0400 Body height 154.94 cm [employer] Work Phone: [facility] 02-28-2023 09:32-0400 Body mass index (BMI) [Ratio] 38.7 kg/m2 [employer] Work Phone: [facility] 02-28-2023 09:32-0400 Body temperature 97.4 [degF] [employer] Work Phone: [facility] 02-28-2023 09:32-0400 Body weight 92.98 kg [employer] Work Phone: [facility] 02-28-2023 09:32-0400 Diastolic blood pressure 81 mm[Hg] [employer] Work Phone: [facility] 02-28-2023 09:32-0400 Heart rate 84 /min [employer] Work Phone: [facility] 02-28-2023 09:32-0400 Respiratory rate 16 /min [employer] Work Phone: [facility] 02-28-2023 09:32-0400 SaO2% (BldA) [Mass fraction] 98 % [employer] Work Phone: [facility] 02-28-2023 09:32-0400 Systolic blood pressure 124 mm[Hg] [employer] Work Phone: [facility] 02-20-2023 09:32-0400 Body mass index (BMI) [Ratio] 38.7 kg/m2 [employer] Work Phone: [facility] 02-20-2023 09:32-0400 Body temperature 98.1 [degF] [employer] Work Phone: [facility] 02-20-2023 09:32-0400 Body weight 93.04 kg [employer] Work Phone: [facility] 02-20-2023 09:32-0400 Diastolic blood pressure 88 mm[Hg] [employer] Work Phone: [facility] 02-20-2023 09:32-0400 Heart rate 91 /min [employer] Work Phone: [facility] 02-20-2023 09:32-0400 Respiratory rate 16 /min [employer] Work Phone: [facility] 02-20-2023 09:32-0400 SaO2% (BldA) [Mass fraction] 98 % [employer] Work Phone: [facility] 02-20-2023 09:32-0400 Systolic blood pressure 141 mm[Hg] [employer] Work Phone: [facility] 01-28-2023 10:50-0400 Body mass index (BMI) [Ratio] 38.6 kg/m2 [employer] Work Phone: [facility] 01-28-2023 10:50-0400 Body temperature 97.5 [degF] [employer] Work Phone: [facility] 01-28-2023 10:50-0400 Body weight 92.7 kg [employer] Work Phone: [facility] 01-28-2023 10:50-0400 Diastolic blood pressure 85 mm[Hg] [employer] Work Phone: [facility] 01-28-2023 10:50-0400 Heart rate 69 /min P[employer]ER OUT-C Loan Garciason P[employer]ER [employer] Work Phone: [facility] 01-28-2023 10:50-0400 Respiratory rate 18 /min [employer] Work Phone: [facility] 01-28-2023 10:50-0400 SaO2% (BldA) [Mass fraction] 99 % P[employer]-C [employer] Garciason P[employer]ER OUT Work Phone: [facility] 01-28-2023 10:50-0400 Systolic blood pressure 148 mm[Hg] P[employer] OUT-C [employer] Garciason P[employer]ER OUT Work Phone: [facility] 12-28-2022 11:50-0400 Body height 154.94 cm P[employer] Work Phone: [facility] 12-28-2022 11:50-0400 Diastolic blood pressure 90 mm[Hg] [employer] Work Phone: [facility] 12-28-2022 11:50-0400 Systolic blood pressure 130 mm[Hg] [employer] Work Phone: [facility] 12-28-2022 09:41-0400 Body temperature 98.5 [degF] [employer] Work Phone: [facility] 12-28-2022 09:41-0400 Body weight 92.07 kg [employer] Work Phone: [facility] 12-28-2022 09:41-0400 Heart rate 90 /min [employer] Work Phone: [phone] [place] [address] 12-28-2022 09:41-0400 Respiratory rate 18 /min [employer] Work Phone: [facility] 12-28-2022 09:41-0400 SaO2% (BldA) [Mass fraction] 100 % [employer] Work Phone: [facility] 11-05-2022 13:04-0400 Body mass index (BMI) [Ratio] 38 kg/m2 [employer] Work Phone: [facility] 11-05-2022 13:04-0400 Body weight 91.17 kg P[employer]ER OUT-C [employer] Garciason P[employer] OUT Work Phone: [facility] 11-05-2022 13:04-0400 Diastolic blood pressure 83 mm[Hg] P[employer]-C [employer] Garciason P[employer]ER [employer] Work Phone: [facility] 11-05-2022 13:04-0400 Respiratory rate 16 /min P[employer]-C [employer] Garciason P[employer] OUT Work Phone: [facility] 11-05-2022 13:04-0400 SaO2% (BldA) [Mass fraction] 98 % [employer] Work Phone: [facility] 11-05-2022 13:04-0400 Systolic blood pressure 128 mm[Hg] [employer] Work Phone: [facility] 11-01-2022 10:01-0400 Body height 154.94 cm [employer] Work Phone: [facility] 11-01-2022 10:01-0400 Body mass index (BMI) [Ratio] 35.9 kg/m2 [employer] Work Phone: [facility] 11-01-2022 10:01-0400 Body temperature 97.6 [degF] [employer] Work Phone: [facility] 11-01-2022 10:01-0400 Body weight 86.18 kg [employer] Work Phone: [facility] 11-01-2022 10:01-0400 Diastolic blood pressure 84 mm[Hg] [employer] Work Phone: [facility] 11-01-2022 10:01-0400 Heart rate 81 /min [employer] Work Phone: [facility] 11-01-2022 10:01-0400 Respiratory rate 16 /min [employer] Work Phone: [facility] 11-01-2022 10:01-0400 SaO2% (BldA) [Mass fraction] 97 % [employer] Work Phone: [facility] 11-01-2022 10:01-0400 Systolic blood pressure 133 mm[Hg] [employer] Work Phone: [facility] 07-25-2022 10:33-0500 Body mass index (BMI) [Ratio] 37 kg/m2 [employer] Work Phone: [facility] 07-25-2022 10:33-0500 Body temperature 98.3 [degF] [employer] Work Phone: [facility] 07-25-2022 10:33-0500 Body weight 88.9 kg [employer] Work Phone: [facility] 07-25-2022 10:33-0500 Diastolic blood pressure 82 mm[Hg] [employer] Work Phone: [facility] 07-25-2022 10:33-0500 Heart rate 79 /min [employer] Work Phone: [facility] 07-25-2022 10:33-0500 Respiratory rate 16 /min [employer] Work Phone: [facility] 07-25-2022 10:33-0500 SaO2% (BldA) [Mass fraction] 99 % [employer] Work Phone: [facility] 07-25-2022 10:33-0500 Systolic blood pressure 122 mm[Hg] [employer] Work Phone: [facility] 05-21-2022 09:36-0400 Body temperature 97.6 [degF] [employer] Work Phone: [facility] Work Phone: 05-21-2022 09:36-0400 Diastolic blood pressure 83 mm[Hg] [employer] Work Phone: [facility] Work Phone: 05-21-2022 09:36-0400 Heart rate 69 /min [employer] Work Phone: [facility] Work Phone: 05-21-2022 09:36-0400 Respiratory rate 16 /min [employer] Work Phone: [facility] Work Phone: 05-21-2022 09:36-0400 SaO2% (BldA) [Mass fraction] 100 % [employer] Work Phone: [facility] Work Phone: 05-21-2022 09:36-0400 Systolic blood pressure 130 mm[Hg] P[employer] Work Phone: [facility] Work Phone: 05-21-2022 07:49-0400 Body height 154.94 cm P[employer] Work Phone: [facility] Work Phone: 05-21-2022 07:49-0400 Body mass index (BMI) [Ratio] 35.6 kg/m2 [employer] Work Phone: [facility] Work Phone: 05-21-2022 07:49-0400 Body weight 85.54 kg P[employer] Work Phone: [facility] Work Phone: 04-25-2022 11:47-0400 Body mass index (BMI) [Ratio] 34.9 kg/m2 [employer] Work Phone: [facility] Work Phone: 04-25-2022 11:47-0400 Body weight 83.91 kg P[employer] Work Phone: [facility] Work Phone: 04-25-2022 08:30-0400 Body mass index (BMI) [Ratio] 35.6 kg/m2 [employer] Work Phone: [facility] Work Phone: 04-25-2022 08:30-0400 Body temperature 98 [degF] [employer] Work Phone: [facility] Work Phone: 04-25-2022 08:30-0400 Body weight 85.72 kg [employer] Work Phone: [facility] Work Phone: 04-25-2022 08:30-0400 Diastolic blood pressure 93 mm[Hg] [employer] Work Phone: [facility] Work Phone: 04-25-2022 08:30-0400 Heart rate 71 /min [employer] Work Phone: [facility] Work Phone: 04-25-2022 08:30-0400 Respiratory rate 18 /min [employer] Work Phone: [facility] Work Phone: 04-25-2022 08:30-0400 SaO2% (BldA) [Mass fraction] 97 % [employer] Work Phone: [facility] Work Phone: 04-25-2022 08:30-0400 Systolic blood pressure 146 mm[Hg] [employer] Work Phone: [facility] Work Phone: 02-05-2022 08:38-0400 Body mass index (BMI) [Ratio] 36.3 kg/m2 [employer] Work Phone: [facility] Work Phone: 02-05-2022 08:38-0400 Body temperature 97.7 [degF] [employer] Work Phone: [facility] Work Phone: 02-05-2022 08:38-0400 Body weight 87.17 kg P[employer] Work Phone: [facility] Work Phone: 02-05-2022 08:38-0400 Diastolic blood pressure 86 mm[Hg] [employer] Work Phone: [facility] Work Phone: 02-05-2022 08:38-0400 Heart rate 70 /min [employer] Work Phone: [facility] Work Phone: 02-05-2022 08:38-0400 Respiratory rate 16 /min [employer] Work Phone: [facility] Work Phone: 02-05-2022 08:38-0400 SaO2% (BldA) [Mass fraction] 100 % [employer] Work Phone: [facility] Work Phone: 02-05-2022 08:38-0400 Systolic blood pressure 138 mm[Hg] [employer] Work Phone: [facility] Work Phone: 01-29-2022 08:42-0400 Body mass index (BMI) [Ratio] 36.1 kg/m2 [employer] Work Phone: [facility] Work Phone: 01-29-2022 08:42-0400 Body weight 86.63 kg [employer] Work Phone: [facility] Work Phone: 01-25-2022 19:55-0400 Body mass index (BMI) [Ratio] 35.9 kg/m2 [employer] Work Phone: [facility] Work Phone: 01-25-2022 19:55-0400 Body temperature 97.7 [degF] [employer] Work Phone: [facility] Work Phone: 01-25-2022 19:55-0400 Body weight 86.18 kg [employer] Work Phone: [facility] Work Phone: 01-25-2022 19:55-0400 Diastolic blood pressure 70 mm[Hg] [employer] Work Phone: [facility] Work Phone: 01-25-2022 19:55-0400 Heart rate 118 /min [employer] Work Phone: [facility] Work Phone: 01-25-2022 19:55-0400 Respiratory rate 18 /min [employer] Work Phone: [facility] Work Phone: 01-25-2022 19:55-0400 SaO2% (BldA) [Mass fraction] 99 % [employer] Work Phone: [facility] Work Phone: 01-25-2022 19:55-0400 Systolic blood pressure 120 mm[Hg] [employer] Work Phone: [facility] Work Phone: 01-24-2022 12:54-0400 Body mass index (BMI) [Ratio] 35.9 kg/m2 [employer] Work Phone: [facility] Work Phone: 01-24-2022 12:54-0400 Body temperature 97.8 [degF] [employer] Work Phone: [facility] Work Phone: 01-24-2022 12:54-0400 Body weight 86.18 kg [employer] Work Phone: [facility] Work Phone: 01-24-2022 12:54-0400 Diastolic blood pressure 86 mm[Hg] [employer] Work Phone: [facility] Work Phone: 01-24-2022 12:54-0400 Heart rate 81 /min [employer] Work Phone: [facility] Work Phone: 01-24-2022 12:54-0400 Respiratory rate 15 /min [employer] Work Phone: [facility] Work Phone: 01-24-2022 12:54-0400 SaO2% (BldA) [Mass fraction] 96 % [employer] Work Phone: [facility] Work Phone: 01-24-2022 12:54-0400 Systolic blood pressure 122 mm[Hg] [employer] Work Phone: [facility] Work Phone: 01-23-2022 14:42-0400 Body mass index (BMI) [Ratio] 36.6 kg/m2 [employer] Work Phone: [facility] Work Phone: 01-23-2022 14:42-0400 Body temperature 97.7 [degF] [employer] Work Phone: [facility] Work Phone: 01-23-2022 14:42-0400 Body weight 87.99 kg [employer] Work Phone: [facility] Work Phone: 01-23-2022 14:42-0400 Diastolic blood pressure 84 mm[Hg] [employer] Work Phone: [facility] Work Phone: 01-23-2022 14:42-0400 Heart rate 90 /min [employer] Work Phone: [facility] Work Phone: 01-23-2022 14:42-0400 Respiratory rate 18 /min [employer] Work Phone: [facility] Work Phone: 01-23-2022 14:42-0400 SaO2% (BldA) [Mass fraction] 97 % [employer] Work Phone: [facility] Work Phone: 01-23-2022 14:42-0400 Systolic blood pressure 160 mm[Hg] [employer] Work Phone: [facility] Work Phone: 01-21-2022 14:33-0400 Diastolic blood pressure 86 mm[Hg] [employer] Work Phone: [facility] Work Phone: 01-21-2022 14:33-0400 Systolic blood pressure 168 mm[Hg] [employer] Work Phone: [facility] Work Phone: 01-21-2022 13:00-0400 Heart rate 74 /min [employer] Work Phone: [facility] Work Phone: 01-21-2022 13:00-0400 Respiratory rate 21 /min [employer] Work Phone: [facility] Work Phone: 01-21-2022 13:00-0400 SaO2% (BldA) [Mass fraction] 98 % P[employer]ER [employer] Garciason P[employer]ER [employer] Work Phone: [facility] Work Phone: 01-21-2022 10:47-0400 Body height 154.94 cm P[employer]ER OUT-C [employer] Garciason P[employer]ER [employer] Work Phone: [facility] Work Phone: 01-21-2022 10:47-0400 Body mass index (BMI) [Ratio] 34.9 kg/m2 [employer] Loan Arun [employer] Work Phone: [facility] Work Phone: 01-21-2022 10:47-0400 Body temperature 97.6 [degF] P[employer] Arun [employer]ER [employer] Work Phone: [facility] Work Phone: 01-21-2022 10:47-0400 Body weight 83.91 kg P[employer] Work Phone: [facility] Work Phone: 01-12-2022 08:25-0400 Body mass index (BMI) [Ratio] 36.2 kg/m2 P[employer] Garciason P[employer]ER [employer] Work Phone: [facility] Work Phone: 01-12-2022 08:25-0400 Body weight 87.08 kg P[employer] Work Phone: [facility] Work Phone: 01-12-2022 08:25-0400 Diastolic blood pressure 86 mm[Hg] [employer] Work Phone: [facility] Work Phone: 01-12-2022 08:25-0400 Heart rate 98 /min [employer] Work Phone: [facility] Work Phone: 01-12-2022 08:25-0400 Respiratory rate 16 /min [employer] Work Phone: [facility] Work Phone: 01-12-2022 08:25-0400 SaO2% (BldA) [Mass fraction] 99 % [employer] Work Phone: [facility] Work Phone: 01-12-2022 08:25-0400 Systolic blood pressure 125 mm[Hg] P[employer] Work Phone: [facility] Work Phone: 01-01-2022 16:02-0400 Body mass index (BMI) [Ratio] 36.4 kg/m2 PULLER OUT-C Loan iDas PULLER OUT Work Phone: [facility] Work Phone: 01-01-2022 16:02-0400 Body temperature 97.7 [degF] PULLER OUT-C Loan Dias PULLER OUT Work Phone: [facility] Work Phone: 01-01-2022 16:02-0400 Body weight 87.54 kg PULLER OUT-C Loan Dias PULLER OUT Work Phone: [facility] Work Phone: 01-01-2022 16:02-0400 Diastolic blood pressure 60 mm[Hg] PULLER OUT-C Loan Dias PULLER OUT Work Phone: [facility] Work Phone: 01-01-2022 16:02-0400 Heart rate 98 /min PULLER OUT-C Loan Dias PULLER OUT Work Phone: [facility] Work Phone: 01-01-2022 16:02-0400 Respiratory rate 18 /min PULLER OUT-C Loan Dias PULLER OUT Work Phone: [facility] Work Phone: 01-01-2022 16:02-0400 SaO2% (BldA) [Mass fraction] 97 % PULLER OUT-C Loan Dias PULLER OUT Work Phone: [facility] Work Phone: 01-01-2022 16:02-0400 Systolic blood pressure 130 mm[Hg] PULLER OUT-C Loan Dias PULLER OUT Work Phone: [facility] Work Phone: 12-01-2021 08:40-0400 Body mass index (BMI) [Ratio] 36.1 kg/m2 PULLER OUT-C Loan Dias PULLER OUT Work Phone: [facility] Work Phone: 12-01-2021 08:40-0400 Body temperature 97.6 [degF] PULLER OUT-C Loan Dias PULLER OUT Work Phone: [facility] Work Phone: 12-01-2021 08:40-0400 Body weight 86.74 kg PULLER OUT-C Loan Dias PULLER OUT Work Phone: [facility] Work Phone: 12-01-2021 08:40-0400 Diastolic blood pressure 88 mm[Hg] PULLER OUT-C Loan Dias PULLER OUT Work Phone: [facility] Work Phone: 12-01-2021 08:40-0400 Heart rate 83 /min PULLER OUT-C Loan Dias PULLER OUT Work Phone: [facility] Work Phone: 12-01-2021 08:40-0400 Respiratory rate 17 /min PULLER OUT-C Loan Dias PULLER OUT Work Phone: [facility] Work Phone: 12-01-2021 08:40-0400 SaO2% (BldA) [Mass fraction] 98 % PULLER OUT-C Loan Dias PULLER OUT Work Phone: [facility] Work Phone: 12-01-2021 08:40-0400 Systolic blood pressure 150 mm[Hg] PULLER OUT-C Loan Dias PULLER OUT Work Phone: [facility] Work Phone: 10-26-2021 08:23-0500 Body temperature 98.1 [degF] PULLER OUT-C Loan Dias PULLER OUT Work Phone: [facility] Work Phone: 10-26-2021 08:23-0500 Body weight 87.54 kg PULLER OUT-C Loan Dias PULLER OUT Work Phone: [facility] Work Phone: 10-26-2021 08:23-0500 Diastolic blood pressure 85 mm[Hg] PULLER OUT-C oLan Dias PULLER OUT Work Phone: [facility] Work Phone: 10-26-2021 08:23-0500 Heart rate 95 /min PULLER OUT-C Loan Dias PULLER OUT Work Phone: [facility] Work Phone: 10-26-2021 08:23-0500 Respiratory rate 14 /min PULLER OUT-C Loan Dias PULLER OUT Work Phone: [facility] Work Phone: 10-26-2021 08:23-0500 SaO2% (BldA) [Mass fraction] 99 % PULLER OUT-C Loan Dias PULLER OUT Work Phone: [facility] Work Phone: 10-26-2021 08:23-0500 Systolic blood pressure 140 mm[Hg] PULLER OUT-C Loan Dias PULLER OUT Work Phone: [facility] Work Phone: 10-18-2021 09:55-0500 Body mass index (BMI) [Ratio] 36.7 kg/m2 PULLER OUT-C Loan Dias PULLER OUT Work Phone: [facility] Work Phone: 10-18-2021 09:55-0500 Body temperature 98.1 [degF] PULLER OUT-C Loan Dias PULLER OUT Work Phone: [facility] Work Phone: 10-18-2021 09:55-0500 Body weight 88.11 kg PULLER OUT-C Loan Dias PULLER OUT Work Phone: [facility] Work Phone: 10-18-2021 09:55-0500 Diastolic blood pressure 96 mm[Hg] PULLER OUT-C Loan Dias PULLER OUT Work Phone: [facility] Work Phone: 10-18-2021 09:55-0500 Heart rate 80 /min PULLER OUT-C Loan Dias PULLER OUT Work Phone: [facility] Work Phone: 10-18-2021 09:55-0500 Respiratory rate 16 /min PULLER OUT-C Loan Dias PULLER OUT Work Phone: [facility] Work Phone: 10-18-2021 09:55-0500 SaO2% (BldA) [Mass fraction] 98 % PULLER OUT-C Loan Dias PULLER OUT Work Phone: [facility] Work Phone: 10-18-2021 09:55-0500 Systolic blood pressure 144 mm[Hg] PULLER OUT-C Loan Dias PULLER OUT Work Phone: [facility] Work Phone: 03-29-2021 13:14-0400 Diastolic blood pressure 91 mm[Hg] PULLER OUT-C Loan Dias PULLER OUT Work Phone: [facility] 03-29-2021 13:14-0400 Heart rate 82 /min PULLER OUT-C Loan Dias PULLER OUT Work Phone: [facility] 03-29-2021 13:14-0400 Respiratory rate 16 /min PULLER OUT-C Loan Dias PULLER OUT Work Phone: [facility] 03-29-2021 13:14-0400 SaO2% (BldA) [Mass fraction] 94 % PULLER OUT-C Loan Dias PULLER OUT Work Phone: [facility] 03-29-2021 13:14-0400 Systolic blood pressure 141 mm[Hg] PULLER OUT-C Loan Dias PULLER OUT Work Phone: [facility] 03-29-2021 10:04-0400 Body mass index (BMI) [Ratio] 35.1 kg/m2 PULLER OUT-C Loan Dias PULLER OUT Work Phone: [facility] 03-29-2021 10:04-0400 Body weight 89.98 kg PULLER OUT-C Loan Dias PULLER OUT Work Phone: [facility] 03-08-2021 13:07-0400 Body temperature 96.8 [degF] PULLER OUT-C Loan Dias PULLER OUT Work Phone: [facility] Encounters Encounter Date Encounter Type Care Provider Facility Start: 03-12-2025 End: 03-12-[address] Hossein Josue MD -[facility] Work Phone: Start: 03-12-2025 End: 03-12-2025 ambulatory Loan Dias PULLER OUT-C Work Phone: -[facility] Start: 03-10-2025 End: 03-10-[address] Raymond Lagos DO -[facility] Work Phone: Start: 03-10-2025 End: 03-10-2025 ambulatory Loan Dias PULLER OUT-C Work Phone: -[facility] Start: 03-10-2025 End: 03-10-2025 Patient encounter procedure Jarred Suh DPSusanna Work Phone: [facility] Comment on above: Plantar fasciitis of right foot (Primary Dx); Pain in right foot Start: 03-10-2025 End: 03-10-2025 ambulatory LOAN L DISA Facility:[facility] Start: 03-08-2025 End: 03-08-2025 Telephone encounter Ag Orth Work Phone: [facility] Start: 03-06-2025 End: 03-06-2025 Emergency department patient visit LOAN L DIAS Facility:[facility] Start: 12-29-2024 End: 12-29-2024 ambulatory Francisco Gorman MD Work Phone: [facility] Comment on above: temporary stop on [place] Start: 12-18-2024 End: 12-18-2024 Telephone encounter Francisco Gorman MD Work Phone: [facility] Comment on above: Cardiac Clearance Start: 12-14-[address] Donell Escalante MD -[facility] Start: 12-14-2024 End: 12-14-2024 Patient encounter procedure Verónica Lopez PULLER OUT- -[facility] Work Phone: Start: 12-14-2024 End: 12-14-2024 ambulatory Loan Dias PULLER OUT Facility:[facility] Start: 12-10-2024 End: 12-10-2024 ambulatory LOAN L DIAS Facility:[facility] Start: 12-09-2024 End: 12-09-2024 Nursing evaluation of patient and report Nurse Card Ag [facility] Work Phone: [facility] Comment on above: Implantable loop rec order present (Primary Dx) Start: 12-09-2024 End: 12-09-2024 ambulatory LOAN L DIAS Facility:[facility] Start: 11-25-2024 End: 11-25-2024 ambulatory FRANCISCO GORMAN Facility:[facility] Start: 11-06-2024 End: 11-06-2024 Telephone encounter Francisco Gorman MD Work Phone: [facility] Comment on above: Preparations For Pro cedures Start: 11-04-2024 End: 11-04-2024 Patient encounter procedure Francisco Gorman MD Work Phone: [facility] Comment on above: Paroxysmal atrial fi brillation (HCC) (Primary Dx); Sinus bradycardia Start: 11-04-2024 End: 11-04-2024 ambulatory FRANCISCO GORMAN Facility:[facility] Start: 11-03-2024 End: 11-03-2024 ambulatory Loan Dias PULLER OUT-C Work Phone: [facility] Work Phone: Start: 11-03-2024 End: 11-03-[address] Antonia Escalante MD -[facility] Work Phone: Start: 11-03-2024 End: 11-03-2024 ambulatory Loan Arun PULLER OUT Facility:[facility] Start: 10-31-2024 End: 10-31-2024 ambulatory Loan Dias PULLER OUT-C Work Phone: [facility] Work Phone: Start: 10-31-2024 End: 10-31-[address] Antonia Escalante MD -Ultrasound, [facility] Work Phone: Start: 10-31-2024 End: 10-31-2024 ambulatory Loan Arun PULLER OUT Facility:[facility] Start: 10-29-2024 End: 10-29-2024 Patient encounter procedure [facility] Provider [facility] Start: 10-28-2024 End: 10-28-2024 Patient encounter procedure Smith Lopez MD Work Phone: [facility] Comment on above: PFO (patent foramen ovale) (Primary Dx); Paroxysmal atrial fibrillation (HCC) Start: 10-28-2024 End: 10-28-2024 ambulatory SMITH LOPEZ Facility:[facility] Start: 10-27-2024 End: 10-27-[address] João Kong DO -[facility] Work Phone: Start: 10-27-2024 End: 10-27-2024 ambulatory João Kong Facility:[facility] Start: 10-27-2024 End: 10-27-2024 ambulatory Loan Dias PULLER OUT-C Work Phone: [facility] Work Phone: Start: 10-27-2024 End: 10-27-[address] Mariajose Barclay MD -[facility] Work Phone: Start: 10-27-2024 End: 10-27-2024 ambulatory Mariajose Barclay Facility:[facility] Start: 10-26-2024 End: 10-26-2024 Telephone encounter Smith Lopez MD Work Phone: [facility] Comment on above: Office Correspondent - O ther Start: 10-01-2024 End: 10-02-2024 Telephone encounter Christy Luna ASSISTANT GENERAL MANAGER.[employer] Work Phone: [facility] Start: 09-30-2024 End: 09-30-2024 Telephone encounter Vandana Goldstein ASSISTANT GENERAL MANAGER.[employer] Work Phone: [facility] Comment on above: Office Correspondent - O ther Appointment Start: 09-24-2024 End: 09-30-2024 Evaluation and management of inpatient FRANCISCO GORMAN Facility:[facility] Start: 09-23-2024 Emergency department patient visit LOAN Elijah DIAS Facility:[facility] Start: 09-22-2024 End: 09-22-2024 Emergency department patient visit LOANAruna DIAS Facility:[facility] Start: 09-22-2024 End: 09-23-2024 Telephone encounter Smith Lopez MD Work Phone: [facility] Comment on above: Appointment; Care Co ordinator - Other Start: 09-22-2024 End: 09-22-2024 Emergency department patient visit LOAN DIAS Facility:[facility] Start: 09-21-[address] Donell Escalante MD -[facility] Start: 09-21-2024 End: 09-21-2024 Patient encounter procedure Verónica Lopez PULLER OUT- -[facility] Work Phone: Start: 09-21-2024 End: 09-21-2024 ambulatory Loanaruna GarciaDias PULLER OUT Facility:[facility] Start: 09-10-2024 End: 09-10-2024 Orders Only Vandana Goldstein APRN.[employer] Work Phone: [facility] Comment on above: PFO (patent foramen ovale) [Q21.12] Start: 09-08-2024 End: 09-08-2024 ambulatory SMITHVANESSA GILBERT'N Facility:[facility] Start: 08-31-2024 End: 08-31-[address] Raymond Lagos DO [facility] Work Phone: Start: 08-31-2024 End: 08-31-2024 ambulatory Loan Dias NP Facility:[facility] Start: 08-17-2024 End: 09-03-2024 Telephone encounter Kishan Piedra MD Work Phone: [facility] Comment on above: Patient Question Start: 08-05-2024 End: 08-05-2024 ambulatory KISHAN PIEDRA Facility:[facility] Start: 07-28-2024 End: 07-28-2024 Telephone encounter Ag Card Work Phone: [facility] Comment on above: Preparations For Pro cedures Start: 07-27-2024 End: 07-27-2024 Patient encounter procedure Ling Harding APRN.[employer] Work Phone: NEUROLOGY Comment on above: 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); PFO (patent foramen ovale); Essential hypertension; Mixed hyperlipidemia Start: 07-27-2024 End: 07-27-2024 ambulatory LING HARDING Facility:[facility] Start: 07-23-2024 End: 07-23-2024 Orders Only Vandana Goldstein APRN.[employer] Work Phone: [facility] Comment on above: PFO (patent foramen ovale) (Primary Dx) Start: 07-22-2024 End: 07-26-2024 Telephone encounter Cecily Yin MD Work Phone: [facility] Comment on above: Patient Question Start: 07-20-2024 End: 07-20-2024 ambulatory CECILY YIN Facility:[facility] Start: 07-15-2024 End: 07-15-2024 Patient encounter procedure [facility] Provider [facility] Department Start: 07-08-2024 End: 07-08-2024 Telephone encounter Marleny Reyez MD Work Phone: [place] [facility] Comment on above: Modified [place] [facility] Start: 07-03-2024 End: 07-03-2024 ambulatory Dia [facility] Facility:[facility] Start: 06-30-2024 End: 06-30-2024 Patient encounter procedure [facility] Provider [facility] Department Start: 06-30-2024 End: 06-30-2024 Telephone encounter Smith Lopez MD Work Phone: [facility] Comment on above: Cardiac Clearance Start: 06-26-2024 End: 06-26-2024 Telephone encounter Ag Card Work Phone: [facility] Comment on above: Preparations For Pro cedures Start: 06-24-2024 End: 06-24-2024 Patient encounter procedure Smith Lopez MD Work Phone: [facility] Comment on above: PFO (patent foramen ovale) (Primary Dx) Start: 06-24-2024 End: 06-24-2024 ambulatory SMITH LOPEZ Facility[facility] Start: 06-19-2024 End: 06-19-2024 ambulatory Loan Dias PULLER OUT Facility:[facility] Start: 06-17-2024 End: 06-17-2024 ambulatory Verónica Lopez Facility:[facility] Start: 06-10-2024 End: 06-10-2024 Telephone encounter Lorna MIST[facility] CARDIA C TESTING Start: 06-09-2024 End: 06-09-2024 Patient encounter procedure Ling Harding APRN.[employer] Work Phone: Cerebrovascular Comment on above: 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); Essential hypertension; PFO (patent foramen ovale) Start: 06-09-2024 End: 06-09-2024 ambulatory LING HARDING [facility] Start: 05-08-2024 End: 05-08-2024 ambulatory Loan Dias PULLER OUT Facility:[facility] Start: 04-29-2024 End: 04-29-2024 Telephone encounter Marleny Reyez MD Work Phone: [place] [facility] Comment on above: Stroke discharge cooper lback Start: 04-27-2024 ambulatory [facility] Facility:[facility] Start: 04-22-2024 ambulatory [facility] Facilit y:[facility] Start: 04-19-2024 End: 04-23-2024 Evaluation and management of inpatient LOAN DIAS Facility:[facility] Start: 04-19-2024 End: 04-19-2024 Admission to same day surgery center Cruz Wilkins MD Work Phone: Neurosurgery Comment on above: 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) (Primary Dx) Start: 04-19-2024 End: 04-19-2024 Telemedicine consultation with patient Cruz Wilkins MD Work Phone: Neurosurgery Start: 04-09-2024 End: 04-09-2024 ambulatory [facility] Facility:[facility] Start: 04-09-2024 End: 04-09-2024 ambulatory [facility] Facility:[facility] Start: 04-02-2024 End: 04-02-2024 ambulatory Loan Dias PULLER OUT Facility:[facility] Start: 03-30-2024 End: 03-30-2024 ambulatory Loan Dias PULLER OUT Facility:[facility] Start: 03-25-2024 End: 03-25-2024 ambulatory Loan Dias PULLER OUT Facility:[facility] Start: 12-21-2023 End: 12-21-2023 Emergency department patient visit PULLER OUT-Jennifer Dias PULLER OUT Work Phone: [facility]-Emergency Department Work Phone: Start: 12-16-2023 End: 12-16-2023 Patient encounter procedure PULLER OUT-Jennifer Dias PULLER OUT Work Phone: [facility] Work Phone: Start: 12-12-2023 End: 12-12-2023 Emergency department patient visit PULLER OUT-Jennifer Dias PULLER OUT Work Phone: [facility]-Emergency Department Work Phone: Start: 12-03-2023 Non-patient / Non-visit PULLER OUT-Jennifer Dias PULLER OUT Work Phone: [facility] Start: 12-03-2023 End: 12-03-2023 Admission to same day surgery center PULLER OUT-Jennifer Dias PULLER OUT Work Phone: [facility]-Surgical Day Care Start: 12-03-2023 End: 12-03-2023 ambulatory PULLER OUT-Jennifer Dias PULLER OUT Work Phone: [facility] Work Phone: Start: 11-06-2023 End: 11-06-2023 Patient encounter procedure PULLER OUT-Jennifer Dias PULLER OUT Work Phone: [facility] Work Phone: Start: 11-04-2023 End: 11-04-2023 ambulatory PULLER OUT-C Loan Dias PULLER OUT Work Phone: [facility] Work Phone: Start: 11-04-2023 End: 11-04-2023 Patient encounter procedure PULLER OUT-Jennifer Dias PULLER OUT Work Phone: [facility]-Outpatient Breast Imaging Work Phone: Start: 11-04-2023 End: 11-04-2023 Patient encounter procedure PULLER OUT-C Loan Dias PULLER OUT Work Phone: [facility] Work Phone: Start: 11-04-2023 End: 11-04-2023 Patient encounter procedure PULLER OUT-Jennifer Dias PULLER OUT Work Phone: [facility] Work Phone: Start: 10-09-2023 End: 10-09-2023 Patient encounter procedure PULLER OUT-C Loan Dias PULLER OUT Work Phone: [facility] Work Phone: Start: 09-25-2023 End: 09-25-2023 Patient encounter procedure PULLER OUT-C Loan Dias PULLER OUT Work Phone: [facility] Work Phone: Start: 09-23-2023 Registered Recurring PULLER OUT-C Loan Dias PULLER OUT Work Phone: [facility] Oncology Start: 09-23-2023 End: 09-23-2023 Patient encounter procedure PULLER OUT-C Loan Dias PULLER OUT Work Phone: [facility] Work Phone: Start: 09-20-2023 End: 09-20-2023 ambulatory PULLER OUT-C Loan Dias PULLER OUT Work Phone: [facility] Work Phone: Start: 09-20-2023 End: 09-20-2023 Patient encounter procedure PULLER OUT-C Loan Dias PULLER OUT Work Phone: [facility] Work Phone: Start: 09-09-2023 End: 09-09-2023 Patient encounter procedure PULLER OUT-C Loan Dias PULLER OUT Work Phone: [facility] Work Phone: Start: 08-26-2023 End: 08-26-2023 ambulatory PULLER OUT-C Loan Dias PULLER OUT Work Phone: [facility] Work Phone: Start: 08-26-2023 End: 08-26-2023 Patient encounter procedure PULLER OUT-C Loan Dias PULLER OUT Work Phone: [facility]-Laboratory Work Phone: Start: 08-06-2023 End: 08-06-2023 Patient encounter procedure PULLER OUT-C Loan Dias PULLER OUT Work Phone: [facility] Work Phone: Start: 07-29-2023 End: 07-29-2023 ambulatory PULLER OUT-C Loan Dias PULLER OUT Work Phone: [facility] Work Phone: Start: 07-29-2023 End: 07-29-2023 Patient encounter procedure PULLER OUT-C Loan Dias PULLER OUT Work Phone: [facility]-Laboratory, Specimen Work Phone: Start: 05-27-2023 End: 05-27-2023 Patient encounter procedure PULLER OUT-C Loan Dias PULLER OUT Work Phone: [facility] Work Phone: Start: 05-15-2023 End: 05-15-2023 Patient encounter procedure PULLER OUT-C Loan Dias PULLER OUT Work Phone: [facility] Work Phone: Start: 05-06-2023 End: 05-06-2023 Patient encounter procedure PULLER OUT-C Loan Dias PULLER OUT Work Phone: [facility] Work Phone: Start: 03-14-2023 End: 03-14-2023 ambulatory PULLER OUT-C Loan Dias PULLER OUT Work Phone: [facility] Work Phone: Start: 03-14-2023 End: 03-14-2023 Patient encounter procedure PULLER OUT-C Loan Dias PULLER OUT Work Phone: [facility] Work Phone: Start: 03-06-2023 End: 03-06-2023 Patient encounter procedure PULLER OUT-Jennifer Dias PULLER OUT Work Phone: [facility] Work Phone: Start: 03-06-2023 End: 03-06-2023 Patient encounter procedure PULLER OUT-Jennifer Dias PULLER OUT Work Phone: [facility] Work Phone: Start: 02-28-2023 End: 02-28-2023 Patient encounter procedure PULLER OUT-Jennifer Dias PULLER OUT Work Phone: [facility] Work Phone: Start: 02-26-2023 End: 02-26-2023 ambulatory PULLER OUT-C Loan Dias PULLER OUT Work Phone: [facility] Work Phone: Start: 02-26-2023 End: 02-26-2023 Patient encounter procedure PULLER OUT-Jennifer Dias PULLER OUT Work Phone: [facility]-Outpatient Breast Imaging Work Phone: Start: 02-20-2023 End: 02-20-2023 Patient encounter procedure PULLER OUT-C Loan Dias PULLER OUT Work Phone: [facility] Work Phone: Start: 01-28-2023 End: 01-28-2023 Patient encounter procedure PULLER OUT-Jennifer Dias PULLER OUT Work Phone: [facility] Work Phone: Start: 01-15-2023 Non-patient / Non-visit PULLER OUT-C Tereza Dias PULLER OUT Work Phone: [facility] Start: 01-15-2023 End: 01-15-2023 ambulatory PULLER OUT-C Loan Dias PULLER OUT Work Phone: [facility] Work Phone: Start: 01-15-2023 End: 01-15-2023 Patient encounter procedure PULLER OUT-Jennifer Dias PULLER OUT Work Phone: [facility]-Cardiovascular Services Start: 12-28-2022 End: 12-28-2022 Patient encounter procedure PULLER OUT-Jennifer Dias PULLER OUT Work Phone: [facility] Start: 12-04-2022 Non-patient / Non-visit PULLER OUT-C Tereza Dias PULLER OUT Work Phone: [facility] Start: 11-05-2022 Registered Recurring PULLER OUT-Jennifer Dias PULLER OUT Work Phone: [facility] Oncology Start: 11-05-2022 End: 11-05-2022 Patient encounter procedure PULLER OUT-Jennifer Dias PULLER OUT Work Phone: [facility] Care Start: 11-01-2022 End: 11-01-2022 Patient encounter procedure PULLER OUT-Jennifer Dias PULLER OUT Work Phone: [facility] Start: 10-31-2022 End: 10-31-2022 ambulatory PULLER OUT-Jennifer Dias PULLER OUT Work Phone: [facility] Work Phone: Start: 10-31-2022 End: 10-31-2022 Patient encounter procedure PULLER OUT-Jennifer Dias PULLER OUT Work Phone: [facility]-Outpatient Breast Imaging Start: 07-25-2022 End: 07-25-2022 Patient encounter procedure PULLER OUT-Jennifer Dias PULLER OUT Work Phone: [facility] Start: 05-21-2022 Non-patient / Non-visit PULLER OUT-C Tereza Dias PULLER OUT Work Phone: [facility] Start: 05-21-2022 End: 05-21-2022 Admission to same day surgery center PULLER OUT-Jennifer Dias PULLER OUT Work Phone: [facility]-Endoscopy Start: 05-21-2022 End: 05-21-2022 ambulatory PULLER OUT-Jennifer Dias PULLER OUT Work Phone: [facility] Work Phone: Start: 04-26-2022 Non-patient / Non-visit PULLER OUT-C Tereza Dias PULLER OUT Work Phone: [facility] Start: 04-25-2022 Non-patient / Non-visit PULLER OUT-C Tereza Dias PULLER OUT Work Phone: [facility] Start: 04-25-2022 Registered Recurring PULLER OUT-Jennifer Dias PULLER OUT Work Phone: [facility] Start: 04-25-2022 End: 04-25-2022 Patient encounter procedure PULLER OUT-Jennifer Dias PULLER OUT Work Phone: [facility] Start: 02-16-2022 End: 02-16-2022 Patient encounter procedure PULLER OUT-Jennifer Dias PULLER OUT Work Phone: [facility] Start: 02-05-2022 End: 02-05-2022 Patient encounter procedure PULLER OUT-Jennifer Dias PULLER OUT Work Phone: [facility] Start: 01-29-2022 End: 01-29-2022 Patient encounter procedure PULLER OUT-Jennifer Dias PULLER OUT Work Phone: [facility] Start: 01-24-2022 End: 01-24-2022 Patient encounter procedure PULLER OUT-C Loan Dias PULLER OUT Work Phone: [facility] Start: 01-21-2022 End: 01-21-2022 Emergency department patient visit PULLER OUT-Jenniefr Dias PULLER OUT Work Phone: [facility]-Emergency Department Start: 01-12-2022 End: 01-12-2022 Patient encounter procedure PULLER OUT-Jennifer Dias PULLER OUT Work Phone: [facility] Start: 01-02-2022 End: 01-02-2022 Patient encounter procedure PULLER OUT-C Loan Dias PULLER OUT Work Phone: [facility]-Radiology, [facility] Start: 12-01-2021 End: 12-01-2021 Patient encounter procedure PULLER OUT-C Loan Dias PULLER OUT Work Phone: [facility] Start: 10-26-2021 End: 10-26-2021 Patient encounter procedure PULLER OUT-C Loan Dias PULLER OUT Work Phone: [facility] Start: 10-26-2021 End: 10-26-2021 Patient encounter procedure PULLER OUT-C Loan Dias PULLER OUT Work Phone: [facility]-Outpatient Breast Imaging Start: 10-18-2021 Registered Recurring PULLER OUT-C Loan Dias PULLER OUT Work Phone: [facility] Start: 10-18-2021 End: 10-18-2021 Patient encounter procedure PULLER OUT-C Loan Dias PULLER OUT Work Phone: [facility] Start: 07-31-2021 Patient encounter status PULLER OUT-Jennifer Dias PULLER OUT Work Phone: [facility] Start: 05-03-2018 End: 05-03-2018 Patient encounter ROSSY (PT) [facility] Start: 04-24-2018 End: 04-24-2018 Patient encounter ROSSY (PT) [facility] Start: 03-19-2018 End: 03-21-2018 Patient encounter [facility] Start: 10-24-2017 Patient encounter [facility] Start: 10-11-2017 Patient encounter [facility] Procedures Date Procedure Procedure Detail Performing Clinician Start: 12-14-2024 Estimated creatinine clearance Loan Dias PULLER OUT-C Work Phone: Start: 11-03-2024 Dual energy X-ray absorptiometry Loan Dias PULLER OUT-C Work Phone: Start: 11-03-2024 Screening mammography D maylin Dias PULLER OUT-C Work Phone: Start: 10-31-2024 Ultrasonography of abdomen Loan Dias PULLER OUT-C Work Phone: Start: 10-27-2024 MRI of lumbar spine Cirilo Dias PULLER OUT-C Work Phone: Start: 09-22-2024 Electrocardiogram SMITH LOPEZ Start: 09-21-2024 Measurement of renal function Loan Dias PULLER OUT-C Work Phone: Comment on above: GFR Calc Start: 09-10-2024 Echo tthrc r-t 2d w/wom-mode compl spec&colr d Vandana Goldstein ASSISTANT GENERAL MANAGER.[employer] Work Phone: Start: 09-10-2024 Echocardiography SMITH LOPEZ Start: 09-10-2024 LVEF ECHO Vandana Goldstein ASSISTANT GENERAL MANAGER.[employer] Work Phone: Start: 09-10-2024 Radiologic exam ches t single view Vandana Goldstein APRN.[employer] Work Phone: Start: 09-10-2024 Coagulation time activated Smith Lopez MD Work Phone: Start: 08-31-2024 X-ray of knee, four or more views Loan Dias PULLER OUT-C Work Phone: Start: 04-20-2024 Lipid 1996 panel - S wesley or Plasma Marleny Reyez MD Work Phone: Start: 04-19-2024 Electrocardiogram SMITH LOPEZ Start: 12-12-2023 SARS-CoV-2, Influenz a & RSV (PCR) PULLER OUT-C Loan Dias PULLER OUT Work Phone: Start: 12-12-2023 Plain chest X-ray PULLER OUT-C Loan Dias PULLER OUT Work Phone: Start: 12-03-2023 Arthroscopy of knee PULLER OUT- C Loan Dias PULLER OUT Work Phone: Start: 11-04-2023 Screening mammography N P-C Loan Garciason PULLER OUT Work Phone: Start: 09-20-2023 MRI of joint of lowe r extremity PULLER OUT-C Loan Garciason PULLER OUT Work Phone: Start: 09-09-2023 Radiologic examinati on of knee PULLER OUT-C Loanaruna GarciaDias PULLER OUT Work Phone: Start: 05-15-2023 Radiologic examinati on of knee PULLER OUT-C Loan Dias PULLER OUT Work Phone: Start: 03-14-2023 MRI of bilateral shyla asts with contrast PULLER OUT-C Loan Garciason PULLER OUT Work Phone: Start: 03-06-2023 Radiologic examinati on of knee PULLER OUT-C Loan Garciason PULLER OUT Work Phone: Start: 02-26-2023 Mammography PULLER OUT-C Loan Garciason PULLER OUT Work Phone: Start: 02-26-2023 Ultrasonography of breast PULLER OUT-C Loan Garciason PULLER OUT Work Phone: Start: 10-31-2022 Dual energy X-ray absorptiometry PULLER OUT-C Loan Garciason PULLER OUT Work Phone: Start: 10-31-2022 Screening mammography N P-C Loan Garciason PULLER OUT Work Phone: Start: 05-21-2022 Colonoscopy PULLER OUT-C Loan Garciason PULLER OUT Work Phone: Start: 01-21-2022 Plain chest X-ray PULLER OUT-C Loan Garciason PULLER OUT Work Phone: Start: 01-21-2022 CT of head without contrast PULLER OUT-C Loan Garciason PULLER OUT Work Phone: Start: 01-02-2022 Radiologic examinati on of knee PULLER OUT-C Loan Garciason PULLER OUT Work Phone: Start: 10-26-2021 CT of thorax with contrast PULLER OUT-C Loanaruna GarciaDias PULLER OUT Work Phone: Start: 10-26-2021 Screening mammography N P-C Loan Dias PULLER OUT Work Phone: Start: 01-25-2021 Trichomonas screening test Loan Garciason PULLER OUT-C Work Phone: Start: 03-20-2018 Lipid 1996 panel - S wesley or Plasma Cruz Wilkins MD Work Phone: History of operative procedure on knee S/P arthroscopic surgery of left knee PULLER OUT-C Loanaruna GarciaDias PULLER OUT Work Phone: Plan of Treatment Date Care Activity Detail Author Start: 09-26-2029 Urine microalbumin profile DTaP,Tdap,Td Vaccine (3 - Td or Tdap) [facility] Start: 04-20-2029 Lipid panel Lipid Screening [facility] Start: 09-30-2027 Diabetes Screening Diabetes Screening [facility] Start: 09-22-2027 Diabetes Screening Diabetes Screening [facility] Start: 09-08-2027 Diabetes Screening Diabetes Screening [facility] Start: 04-23-2027 Diabetes Screening Diabetes Screening [facility] Start: 04-19-2027 Diabetes Screening Diabetes Screening [facility] Start: 12-10-2025 End: 12-10-2025 Patient encounter procedure 12/10/2025 10:00 AM EDT Office Visit [facility] [address] [place] [address] Francisco Gorman MD [address] [place] [phone] 1 year follow up [facility] Comment on above: 1 year follow up Start: 07-27-2025 BP Controlled (<130/80) BP Controlled (<130/80) [facility] Start: 04-30-2025 End: 04-30-2025 Patient encounter procedure 04/30/2025 9:00 AM EDT Office Visit [facility] [address] [place] [address] Smith Lopez MD [address] [place] [phone] Return in about 6 months. [facility] [place] Comment on above: Return in about 6 months. Start: 04-19-2025 Influenza vaccination [facility] Start: 04-07-2025 End: 04-07-2025 Patient encounter procedure 04/07/2025 9:45 AM EDT Office Visit [facility] [address] [place] [address] Jarred Suh, GISELA [address] [place] [address] Follow up Right foot [facility] Comment on above: Follow up Right foot Start: 03-12-2025 Evaluation of diagnostic study results [facility] Start: 03-10-2025 End: 03-10-2025 Patient encounter procedure 03/10/2025 9:15 AM EDT Office Visit [facility] [address] [place] [address] Jarred Suh, GISELA [address] [place] [address] R foot/poss plantar fasciitis [facility] Comment on above: R foot/poss plantar fasciitis Start: 02-01-2025 End: 02-01-2025 Patient encounter procedure 02/01/2025 9:30 AM EDT Office Visit NEUROLOGY [address] [place], [place] [phone] Ling Harding APRN.[employer] [address] [place] [address] 6 month follow up NEUROLOGY Comment on above: 6 month follow up Start: 12-29-2024 End: 12-29-2024 Patient encounter procedure 12/29/2024 8:00 AM EDT [facility] [address] [place] [address] loop/sv/mdt/naif [facility] Comment on above: loop/sv/mdt/naif Start: 12-25-2024 End: 12-25-2024 Patient encounter procedure 12/25/2024 8:00 AM EDT Procedure [facility] [address] [place] [address] loop/sv/mdt/naif [facility] Comment on above: loop/sv/mdt/naif Start: 12-23-2024 End: 12-23-2024 Patient encounter procedure 12/23/2024 8:20 AM EDT Office Visit [facility] [address] [place] [address] Smith Lopez MD [address] [place] [address] Return in about 6 months (around 12/22/2024). [facility] Comment on above: Return in about 6 months (around ). Start: 12-07-2024 End: 12-07-2024 Patient encounter procedure 12/07/2024 10:00 AM EDT Office Visit [facility] [address] [place] [address] Francisco Gorman MD [address] [place] [phone] Hospital follow up; monitor results [facility] Comment on above: Hospital follow up; monitor results Start: 11-25-2024 End: 11-25-2024 Admission to same day surgery center 11/25/2024 8:00 AM EDT - 11/25/2024 9:40 AM EDT Surgery [facility] [address] [place] [address] Francisco Gorman MD [address] [place] [address] INSERTION SUBCUTANEIOUS CARDIAC RHYTHM MONITOR,INCL PROGRAMMNG [facility] Comment on above: INSERTION SUBCUTANEIOUS CARDIAC RHYTHM M ONITOR,INCL PROGRAMMNG Start: 11-25-2024 End: 11-25-2024 Insertion subq cardiac rhythm monitor w/prgrmg INSERTION SUBCUTANEIOUS CARDIAC RHYTHM MONITOR,INCL PROGRAMMNG Paroxysmal atrial fibrillation (HCC) Sinus bradycardia 11/25/2024 8:00 AM EDT [facility] Start: 11-25-2024 Subsequent hospital visit by physician 11/25/2024 8:00 AM EDT Hospital Encounter [facility] [place] [address] Francisco Gorman MD [address] [place] [phone] Paroxysmal atrial fibrillation (HCC) [I48.0], Sinus bradycardia [R00.1] [facility] Comment on above: Paroxysmal atrial fibrillation (HCC) [I4 8.0], Sinus bradycardia [R00.1] Start: 11-04-2024 End: 11-04-2024 Patient encounter procedure 11/04/2024 2:40 PM EDT Office Visit [facility] [place] [address] [place], [place] [phone] Francisco Gorman MD [address] [place] [address] Discuss montior results/PPM Implant [facility] Comment on above: Discuss montior results/PPM Implant Start: 10-28-2024 End: 10-28-2024 Patient encounter procedure [facility] Comment on above: 1mo PFO Closure follow up 1mo PFO Closure foll ow up/srs Start: 09-10-2024 End: 09-10-2024 Admission to same day surgery center 09/10/2024 12:00 PM EST - 09/10/2024 2:00 PM EST [facility] [address] [place] [address] Smith Lopez MD [address] [place], [place] [phone] PERCUTANEOUS TRANSCATHETER 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 [facility] Comment on above: PERCUTANEOUS TRANSCATHETER CLOSURE OF CO NGENITAL INTERATRIAL COMMUNICATION W/O IMPLANT Start: 09-10-2024 Subsequent hospital visit by physician 09/10/2024 12:00 PM EST Hospital Encounter [facility] [address] [place] [address] Smith Lopez MD [address] [place] [address] PFO (patent foramen ovale) [Q21.12] [facility] Comment on above: PFO (patent foramen ovale) [Q21.12] Start: 09-10-2024 End: 09-10-2024 Intracard echocard w/ther/dx ivntj incl img s&i [facility] Start: 09-10-2024 End: 09-10-2024 Prq tcat clsr cgen intratrl comunicaj w/implt [facility] Start: 08-19-2024 Advance Directive Discussion Advance Directive Discussion [facility] Start: 08-19-2024 Medicare Advantage Annual Wellness Visit Medicare Advantage Annual Wellness Visit [facility] Start: 08-05-2024 End: 08-05-2024 Admission to same day surgery center 08/05/2024 9:50 AM EST - 08/05/2024 10:55 AM EST Surgery [facility] [address] [place] [address] Kishan Piedra MD [address] [place], [place] [id number] ECHOCARDIOGRAM TRANSESOPHOGEAL, REAL TIME W/IMAGE DOCUMENT (2D) [facility] Comment on above: ECHOCARDIOGRAM TRANSESOPHOGEAL, REAL KRISS E W/IMAGE DOCUMENT (2D) Start: 08-05-2024 End: 08-05-2024 Echo transesophag r-t 2d w/prb img acquisj i&r ECHOCARDIOGRAM TRANSESOPHOGEAL, REAL TIME W/IMAGE DOCUMENT (2D) PFO (patent foramen ovale) 08/05/2024 9:50 AM EST [facility] Start: 08-05-2024 Subsequent hospital visit by physician [facility] Comment on above: Atrial fibrillation, unspecified type (H CC) [I48.91] Start: 07-27-2024 End: 07-27-2024 Patient encounter procedure 07/27/2024 10:30 AM EST Office Visit NEUROLOGY [address] [place], [place] [phone] Ling Harding, ASSISTANT GENERAL MANAGER.[employer] [address] [place] [address] 6 week follow up NEUROLOGY Comment on above: 6 week follow up Start: 07-20-2024 End: 07-20-2024 Admission to same day surgery center 07/20/2024 8:30 AM EST - 07/20/2024 9:30 AM EST Surgery [facility] [address] [place] [address] Cecily Yin MD [address] [place] [address] ECHOCARDIOGRAM TRANSESOPHOGEAL [facility] Comment on above: ECHOCARDIOGRAM TRANSESOPHOGEAL Start: 07-20-2024 End: 07-20-2024 Echo transesophag montr cardiac pump functj ECHOCARDIOGRAM TRANSESOPHOGEAL PFO (patent foramen ovale) 07/20/2024 8:30 AM EST [facility] Start: 07-20-2024 Subsequent hospital visit by physician 07/20/2024 8:30 AM EST Hospital Encounter [facility] [address] [place] [address] Cecily Yin MD [address] [place] [address] PFO (patent foramen ovale) [Q21.12] [facility] Comment on above: PFO (patent foramen ovale) [Q21.12] Start: 06-24-2024 End: 06-24-2024 Patient encounter procedure [facility] Comment on above: PFO PFO /sab Start: 06-09-2024 End: 06-09-2024 Patient encounter procedure 06/09/2024 1:30 PM EDT Office Visit [facility] [address] [place], [place] [phone] Ling Harding APRN.[employer] [address] [place] [address] Order [id number] [facility] Comment on above: Order [id number] Start: 04-19-2024 Covid-19 Vaccine ( season) Covid-19 Vaccine ( season) [facility] Start: 04-19-2024 Covid-19 Vaccine ( season) Covid-19 Vaccine () [facility] Start: 04-19-2024 Influenza vaccination Influenza Vaccine (#1) [facility] Start: 12-12-2023 [facility] Start: 12-12-2023 End: 12-12-2023 [facility] Start: 12-03-2023 Anes open/surg arthroscopic proc knee joint nos ANESTH KNEE JOINT SURGERY [facility] Start: 12-03-2023 Arthrs knee w/meniscectomy med&lat w/shaving KNEE ARTHROSCOPY/SURGERY [facility] Start: 12-03-2023 Patient discharge [facility] Start: 12-03-2023 Application of ice collar, cap or bag [facility] Start: 12-03-2023 Catheterization of vein [facility] Start: 12-03-2023 Elevation of affected extremity [facility] Start: 12-03-2023 Following clinical pathway protocol [facility] Start: 12-03-2023 Procedure discontinued [facility] Start: 12-03-2023 Provision of mobility device [facility] Start: 12-03-2023 Taking patient vital signs [facility] Start: 12-03-2023 Vital signs measurements [facility] Start: 12-03-2023 End: 12-03-2023 [facility] Start: 12-03-2023 Medication education [facility] Start: 08-19-2023 Advance Directive Discussion Advance Directive Discussion [facility] Start: 03-20-2023 Lipid panel Lipid Screening [facility] Start: 10-31-2022 Dual energy X-ray absorptiometry Dexa Bone Density Study [facility] Start: 10-31-2022 DXA Bone [Mass/Area] Bone density [facility] Start: 05-21-2022 Patient discharge [facility] Work Phone: Start: 01-24-2022 Patient referral [facility] Work Phone: Start: 01-21-2022 [facility] Work Phone: Start: 01-01-2022 Patient referral [facility] Work Phone: Start: 05-30-2021 Screening for malignant neoplasm of breast Mammogram Screening [facility] Start: 11-16-2020 Venous catheter care management [facility] Start: 09-09-2020 [facility] Start: 06-13-2020 [facility] Start: 2019 Pneumococcal Vaccine: 65+ (1 of 1 - PCV) Pneumococcal Vaccine: 65+ (1 of 1 - PCV) [facility] Start: 2019 Screening for osteoporosis Bone Density Screening [facility] Start: 2014 RSV Vaccine (1 - 1-dose 60+ series) RSV Vaccine (1 - 1-dose 60+ series) [facility] Start: 2014 RSV Vaccine (1 - Risk 60-74 years 1-dose series) RSV Vaccine (1 - Risk 60-74 years 1-dose series) [facility] Start: 2004 Pneumococcal Vaccine: 50+ (1 of 1 - PCV) Pneumococcal Vaccine: 50+ (1 of 1 - PCV) [facility] Start: 2004 Shingrix Vaccine (1 of 2) Shingrix Vaccine (1 of 2) [facility] Start: 1999 Screening for malignant neoplasm of colon [facility] Start: 1972 Annual PCP Team Chronic Disease Visit Annual PCP Team Chronic Disease Visit [facility] Start: 1972 BP Controlled (<130/80) BP Controlled (<130/80) [facility] Start: 1972 Depression Screening Depression Screening [facility] Start: 1972 Hepatitis C screening Hepatitis C Screening [facility] CBC W Auto Different ial panel - Blood [facility] Colonoscopy [facility] Work Phone: Comprehensive metabo lic 2000 panel - Serum or Plasma [facility] ECG B/O W INTERP (ME D OFFICE) ECG B/O W INTERP (MED OFFICE) ECG Routine PFO (patent foramen ovale) Ordered: 06/24/2024 [facility] Work Phone: Comment on above: Ordered: 06/24/2024 ECG B/O W INTERP (ME D OFFICE) ECG B/O W INTERP (MED OFFICE) ECG Routine Ordered: 11/04/2024 [facility] Work Phone: Comment on above: Ordered: 11/04/2024 Echo transesophag r- t 2d w/prb img acquisj i&r ECHOCARDIOGRAM TRANSESOPHOGEAL, REAL TIME W/IMAGE DOCUMENT (2D) PFO (patent foramen ovale) [facility] End: 06-24-2025 ECHO TRANSESOPHAGEAL ECHO TRANSESOPHAGEAL Cardiology Routine PFO (patent foramen ovale) 1 Occurrences starting 06/24/2024 until 06/24/2025 [facility] Comment on above: 1 Occurrences starting 06/24/2024 until 06/24/2025 End: 07-23-2025 ECHO TRANSESOPHAGEAL ECHO TRANSESOPHAGEAL Cardiology Routine PFO (patent foramen ovale) 1 Occurrences starting 07/23/2024 until 07/23/2025 [facility] Work Phone: Comment on above: 1 Occurrences starting 07/23/2024 until 07/23/2025 End: 07-26-2025 ECHO TRANSESOPHAGEAL ECHO TRANSESOPHAGEAL Cardiology Routine PFO (patent foramen ovale) 1 Occurrences starting 07/26/2024 until 07/26/2025 [facility] Work Phone: Comment on above: 1 Occurrences starting 07/26/2024 until 07/26/2025 End: 09-10-2024 ELECTROPHYSIOLOGY US ELECTROPHYSIOLOGY US BIC Routine One Time for 1 Occurrences starting 09/10/2024 until 09/10/2024 [facility] Work Phone: Comment on above: One Time for 1 Occurrences starting 08/20 until 09/10/2024 Insertion subq cardi ac rhythm monitor w/prgrmg INSERTION SUBCUTANEIOUS CARDIAC RHYTHM MONITOR,INCL PROGRAMMNG Paroxysmal atrial fibrillation (HCC) Sinus bradycardia [facility] MG Breast - bilatera l Diagnostic [facility] MG Breast - bilatera l Screening [facility] Patient Education [facility] Work Phone: Patient referral [facility] Work Phone: End: 09-10-2024 RIGHT HEART CATHETERIZATION RIGHT HEART CATHETERIZATION BIC Routine One Time for 1 Occurrences starting 09/10/2024 until 09/10/2024 [facility] Comment on above: One Time for 1 Occurrences starting 08/20 until 09/10/2024 [facility] [place] Immunization Date Immunization Notes Care Provider Tasha burton 08-27-2021 COVID-19 original vaccine, age 12+ yr, monovalent (PFIZER-BIONTECH - PURPLE TOP) Cruz Wilkins MD Work Phone: [facility] 06-19-2021 influenza, injectabl e, quadrivalent, preservative free PULLER OUT-C Loan Dias PULLER OUT Work Phone: [facility] 06-19-2021 influenza, seasonal, injectable PULLER OUT-C Loan Dias PULLER OUT Work Phone: [facility] 06-19-2021 influenza virus vaccine, unspecified formulation Cruz Wilkins MD Work Phone: [facility] 05-26-2020 influenza, injectabl e, quadrivalent, preservative free PULLER OUT-C Loan Dias PULLER OUT Work Phone: [facility] 05-26-2020 influenza, seasonal, injectable PULLER OUT-C Loan Dias PULLER OUT Work Phone: [facility] 05-26-2020 influenza, seasonal, injectable, preservative free Cruz Wilkins MD Work Phone: [facility] 09-26-2019 diphtheria, tetanus toxoids and acellular pertussis vaccine, unspecified formulation PULLER OUT-C Loan Dias PULLER OUT Work Phone: [facility] Work Phone: 09-26-2019 tetanus toxoid, reduced diphtheria toxoid, and acellular pertussis vaccine, adsorbed PULLER OUT-C Loan Dias PULLER OUT Work Phone: [facility] Payers Date Payer Category Payer Medicare (Managed Care) [employer] H[employer] [id number] 2023 Unknown [employer] [facility] S AND BLUE [facility] ANTHEM MEDICARE ADVANTAGE HMO [id number] 2023-Present [phone] [address] [place] [address] O [id number] 2023 Medicaid [id number] 2020 Medicaid [id number] 2020 Medicare [id number] 2020 Self-pay [id number] Medicare [id number] Medicare [employer]M MEDICARE SENIOR ADVANTA [id number] Unknown [id number] Unknown [id number] Unknown [id number]. 462 Unknown [id number] [id number]. 462 Unknown [id number] [id number]. 462 Unknown [id number] [id number]. 462 Unknown [id number] [id number]. 462 Unknown [id number]. 462 Unknown [id number]. 462 Unknown [id number] 2.840.1.295292.3.579.2. 462 Unknown [id number] 2.840.1.107506.3.579.2. 462 Unknown [id number] [id number]. 462 Unknown [id number] [id number]. 462 Unknown [id number]. 462 Unknown [id number] Unknown [id number] 462 Unknown [id number] 462 Unknown [id number] 462 Unknown [id number] 462 Unknown [id number] 462 Unknown [id number] 462 Unknown [id number] 462 Unknown [id number] 462 Social History Date Type Detail Facility Start: 01-21-2022 End: 05-15-2023 Tobacco smoking status MDIS Unknown if ever smoked [facility] Start: 09-07-2020 Occasional [facility] Start: 09-07-2020 None [facility] Start: 09-07-2020 Alone [facility] Start: 11-28-2020 Cigarettes [facility] Start: 1955 Sex Assigned At Female [facility] Start: 05-11-2020 End: 06-09-2024 Tobacco smoking status NHIS Ex-smoker [facility] History of tobacco use Current smoker [facility] History of tobacco use Cigarette Smoker C [facility] Start: 05-11-2020 End: 11-04-2024 Tobacco use and exposure Smokeless tobacco non-user [facility] Start: 07-16-2021 End: 07-27-2024 Alcoholic beverage intake Current drinker of alcohol (finding) [facility] Start: 07-24-2020 End: 07-16-2021 Alcoholic beverage intake [facility] Start: 06-10-2020 End: 07-24-2020 Alcohol Use Disorder Identification Test - Consumption [AUDIT-C] [facility] How often to you hav e a drink containing alcohol? 2-3 time sa week [facility] How many standard dr inks containing alcohol do you have on a typical day? 3 or 4 [facility] Frequency of Binge Drinking Not on file [facility] Start: 05-11-2020 End: 06-09-2024 Tobacco Comment Pt smoked one pack weekly x 1 year. [facility] Start: 04-25-2021 Alcohol Comment glass of wine every couple of days [facility] Start: 03-29-2020 Gender identity Identifies as female gender (finding) [facility] Has the [employer], [employer], oil, or water company threatened to shut off services in your home in past 12Mo No [facility] Work Phone: (I/We) worried ian monreal (my/our) food would run out before (I/we) got money to buy more. Never true [facility] Start: 06-24-2024 Alcohol Comment [facility] Start: 09-22-2024 End: 03-10-2025 Alcoholic beverage intake Ex-drinker (finding) [facility] Start: 12-21-2023 End: 11-04-2024 Tobacco smoking status NHIS Never smoked tobacco [facility] Start: 11-04-2024 Alcohol Comment none [facility] Start: 11-05-2024 End: 11-11-2024 Sex Female (finding) [facility] NEGATED: Highlighted row [facility] Medical Equipment Procedure Code Equipment Code Equipment Origin al Text Equipment Identifier Dates [place] [employer] M ri 8fr Plastic Polyurethane Implantable Infusion - [id number] Start: 06-08-2020 [place] [employer] FDA Start: 09-10-2024 [place] occ[employer] FDA Start: 09-10-2024 [place] occ[employer] FDA Start: 09-10-2024 [id number] Start: 11-25-2024 [place] occ[employer] FDA Start: 09-10-2024 [place] occ[employer] FDA Start: 09-10-2024 Goals Date Patient Goal Desired Activity /State Personal health goal Functional Status Date Assessment Result Facility 09-30-2024 Are you deaf, or do you have serious difficulty hearing No 09/30/2024 4:43 PM Trey Morley RN No [facility] 09-30-2024 Are you blind, or do you have serious difficulty seeing, even when wearing glasses No 09/30/2024 4:43 PM Trey Morley RN No [facility] 09-30-2024 Do you have serious difficulty walking or climbing stairs No 09/30/2024 4:43 PM Trey Morley RN No [facility] 09-30-2024 Do you have difficul ty dressing or bathing No 09/30/2024 4:43 PM Trey Morley RN No [facility] 09-30-2024 Because of a physica l, mental, or emotional condition, do you have difficulty doing errands alone such as visiting a physician's office or shopping No 09/30/2024 4:43 PM Trey Morley RN No [facility] Mental Status Date Assessment Result Facility 09-30-2024 Because of a physica l, mental, or emotional condition, do you have serious difficulty concentrating, remembering, or making decisions No 09/30/2024 4:43 PM Trey Morley RN No [facility] 12-12-2023 Cognitive function Level Of Cons ciousness Awake;Alert;Appropriate [facility] Work Phone: 12-03-2023 Cognitive function Level Of Cons ciousness Awake;Alert [facility] Work Phone: 12-03-2023 Cognitive function Voice/Name [facility] Work Phone: 05-21-2022 Cognitive function Voice/Name [facility] Work Phone: 01-21-2022 Cognitive function Level Of Cons ciousness Awake;Alert;Appropriate;Fol lows Commands [facility] Work Phone: Clinical Notes 04-11-2021 to 03-10-2025 Randa Hansen MA - 03/10/2025 9:53 AM EDJarred Hinkle DPM - 03/10/2025 9:13 AM EDTTelephone Encounter - Annie Johnson - 03/08/2025 10:48 AM EDT Note Date & Type Note Facility 03-10-2025 Note HNO ID: [id number] Author: RANDA HANSEN MA Service: ? Author Type: Sql Developer Dba Type: Progress Notes Filed: 03/11/2025 13:58 Note Text: PT fit for a Med Night Splint. PT advised on application and care of splint. [facility] 03-10-2025 History of Presen t illness Narrative PT fit for a Med Night Splint. PT advised on application and care of splint. CC: Right heel pain HPI: This 69 year old female presents complaining of pain in the right heel x 2 months. Denies trauma. Onset was gradual with worsening course until recently. Admits to increasing activity and her walking recently. Patient denies burning, numbness or tingling. Pain is moderate and rated as 7/10 after getting up in AM without improvement after prolonged WB. Denies any swelling or redness. Patient denies using inserts. Has been taking analgesics with some relief. Denies any other pedal complaints. PMH PAST MEDICAL HISTORY Diagnosis Date Arterial ischemic stroke (HCC) Arthritis Breast cancer (HCC) 04/07/2020 Ectopic fetus (HCC) tube removed HLD (hyperlipidemia) Hypertension Irregular heart beat PFO (patent foramen ovale) (HCC) MEDS Current Outpatient Medications Medication Sig Dispense Refill ascorbic acid, vitamin C, (VITAMIN C) 500 mg tablet Take 500 mg by mouth two times a day. dilTIAZem HCl 360 mg 24 hr capsule Take 1 capsule by mouth once daily. 90 capsule 3 apixaban (ELIQUIS) 5 mg tab(s) Take 1 tablet by mouth two times a day. 60 tablet 11 aspirin, enteric coated (ECOTRIN LOW STRENGTH) 81 mg EC tablet Take 1 tablet by mouth once daily. 90 tablet 3 acetaminophen (TYLENOL) 500 mg tablet Take 1,000 mg by mouth every 6 hours as needed for pain. cholecalciferol (VITAMIN D3) 1,000 unit tab tablet Take 1,000 Units by mouth once daily. exemestane (AROMASIN) 25 mg tablet Take 25 mg by mouth every evening. calcium carbonate/vitamin D3 (CALCIUM 600 + D ORAL) Take 1 tablet by mouth three times a day. colchicine 0.6 mg tablet Take 1 tablet by mouth once daily. [address] (PROTONIX) 20 mg tablet Take 1 tablet by mouth daily at 6 am. 30 tablet 3 prochlorperazine (COMPAZINE) 10 mg tablet Take 1 tablet by mouth every 6 hours as needed. 30 tablet 0 No current facility-administered medications for this visit. Allergies ALLERGIES Allergen Reactions Oxycodone-Acetamino* Rash Tape [Adhesive Tape* Rash Social History Tobacco Use Smoking status: Never Smokeless tobacco: Never Tobacco comments: Pt smoked one pack weekly x 1 year. Vaping Use Vaping status: Never Used Substance Use Topics Alcohol use: Not Currently Alcohol/week: 12.0 standard drinks of alcohol Types: 7 Glasses of wine, 5 Glasses of Wine (5oz) per week Comment: none Drug use: Not Currently Comment: No more gummies FAMILY HISTORY Problem Relation Age of Onset Hypertension Mother Stroke Mother Emphysema Father other (Lung Cancer) Father Prostate Cancer Brother Hypertension Maternal Grandmother Stroke Maternal Grandmother Stroke Maternal Aunt PAST SURGICAL HISTORY Procedure Laterality Date BREAST BIOPSY Right 04/05/2020 BREAST LUMPECTOMY HX Right 04/22/2020 SECTION HX x 3 EXCISION OF CYST 1994 Right breast IMPLANT CATH INSERTION (AG) 06/08/2020 KNEE SURGERY HX Left 11/2023 menicus tear TREAT ECTOPIC PREG,NON REMVAL REVIEW OF SYSTEMS PAIN ASSESSMENT: CURRENTLY HAVING PAIN; see HPI MSK: + as noted in HPI. Physical examination: On General Observation: Patient is a pleasant, cooperative, well developed 69 year old adult female. The patient is alert and oriented to time, place and person. Patient has normal affect and mood. Resp 18 Ht 154.9 cm (5' 1) Wt 80.7 kg (178 lb) BMI 33.63 kg/m Vascular: DP and PT pulses are palpable. CFT less than 3 seconds to all digits bilateral. Skin temperature is warm to warm from proximal to distal bilateral. Hair growth is noted. Mild edema to noted to right heel. No varicosities noted. Neuro: Light touch intact bilateral. Protective sensation intact at all pedal sites via [place] Zee 5.07 monofilament bilateral. Derm: Skin texture and turgor within normal limits. Toenails normal in appearance. Webspaces 1-4 clean, dry, intact bilateral. No rashes, subcutaneous nodules, or open lesions noted. No hyperkeratotic tissue. NO erythema Muscle strength is 5/5 for all instrinsic and extrinsic muscle groups. General foot morphology: ROM of the STJ and MTJ is full without pain or crepitus. Pain with palpation to the plantar medial aspect of the right heel at the insertion site of the central band of the plantar fascia. Positive erythema and effusion to the plantar right heel. Negative Tinel's sign with percussion of the posterior tibial nerve at the proximal and distal tarsal tunnel regions. No pain with palpation/compression to posterior calcaneal tuber. No signs of calcaneal stress fracture. No signs of Johnson's nerve entrapment. Negative straight leg raise test. No evidence of nodularity or fibromatosis. Last XR Foot - Impression Only XR FOOT GENERAL 3V AP/LAT/OBL RIGHT Exam End: 03/06/2025 7:22 PM (Final result) Impression: IMPRESSION: Prominent enthesophyte off the plantar aspect posterior calcaneal tuberosity. 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 ASSESSMENT: This is a 69 year old patient presenting with plantar fasciitis and equinus right foot PLAN: A comprehensive history and physical examination were preformed. The patient was educated on clinical and radiographic findings, diagnosis and treatment plans. Patient state that she understands all that has been explained and all questions were answered to her apparent satisfaction. -We discussed the etiology of the heel complaints as well as the plantar fasciitis treatment protocol. -Pt to to begin stretching, icing, and wearing appropriate shoes. No barefoot walking. -Demonstrated stretching exercises to the pt - dispensed literature. -Recommended using OTC arch supports, specifically purchasing Powersteps orthoses. Discussed usage guidelines. - Plantar fascial night splint was fit and dispensed in office today. Instructed patient on usage. - Continue rest, ice and elevation. - Will hold off on antiinflammatory medication at this time due to history. Will consider oral steroids vs injection if no improvement. Follow up in 4 weeks Evgeny Moscoso DPM, Pgy-3 I personally saw and evaluated the patient. I reviewed the resident's note. I agree with the resident's assessment and plan unless otherwise noted. Jarred Suh DPM, FACFAS documented in this encounter [facility] 03-10-2025 Note Kiko Mistry [facility] 03-08-2025 Telephone encounter Note I spoke with the patient and scheduled an appointment. Annie Johnson [facility] 03-08-2025 Miscellaneous Notes I spoke with the patient and scheduled an appointment. Annie Johnson ----- Message from Eddie Wilkerson sent at 03/08/2025 9:20 AM EDT ----- Regarding: Orthopedics / Foot: Plantar Fasciitis / Recent ED Visit Subject Line Format: Orthopedics / [Provider Name or Open & Body Part] / [Issue] Orthopedics / Foot: Plantar Fasciitis / Recent ED Visit Patient has been identified by name and Date of (Y/N): yes Patient: Bo Monteiro Date of : 1955 Previous Provider Seen: none Body Part(s) Identified: left foot Diagnosis/Reason For Visit: Plantar Fasciitis bone spur Reason for the call/escalation: er follow up If reason for call/escalation is discharge from ED/ER or Hospital, which facility was the patient seen at: [facility] Was an appointment scheduled (Y/N): no Person calling if other than patient: no Return call to if other than patient: no Best contact number: [phone] Thank you, Eddie Fritz March 08, 2025 9:20 AM documented in this encounter [facility] 03-08-2025 Telephone encounter Note ----- Message from Eddie Wilkerson sent at 03/08/2025 9:20 AM EDT ----- Regarding: Orthopedics / Foot: Plantar Fasciitis / Recent ED Visit Subject Line Format: Orthopedics / [Provider Name or Open & Body Part] / [Issue] Orthopedics / Foot: Plantar Fasciitis / Recent ED Visit Patient has been identified by name and Date of (Y/N): yes Patient: Bo Monteiro Date of : 1955 Previous Provider Seen: none Body Part(s) Identified: left foot Diagnosis/Reason For Visit: Plantar Fasciitis bone spur Reason for the call/escalation: er follow up If reason for call/escalation is discharge from ED/ER or Hospital, which facility was the patient seen at: [facility] Was an appointment scheduled (Y/N): no Person calling if other than patient: no Return call to if other than patient: no Best contact number: [phone] Thank you, Eddie Fritz March 08, 2025 9:20 AM [facility] 12-29-2024 Telephone encounter Note Telephone encounter regarding clearance was sent to Dr. Gorman. Mary Boothe RN [facility] 12-29-2024 Miscellaneous Notes Telephone encounter regarding clearance was sent to Dr. Gorman. Mary Boothe RN documented in this encounter [facility] 12-18-2024 Telephone encounter Note Clearance form to hold Eliquis received from Dr Alex ANDREW. Form placed in Dr. Gorman's door box. Yazmin Maravilla RN [facility] 12-18-2024 Miscellaneous Notes Clearance form to hold Eliquis received from Dr Alex ANDREW. Form placed in Dr. Gorman's door box. Yazmin Maravilla RN documented in this encounter [facility] 12-14-2024 Evaluation note Diagnosis Onset Date Resolution Breast cancer of lower-inner quadrant of right female breast chronic December 14, 2024 1:58pm Osteopenia chronic December 14 1:58pm Anxiety as acute reaction to gross stress acute December 14, 2024 2:15pm Encounter for chemotherapy management acute December 142024 2:15pm Encounter for education acute A pril 2024 2:15pm Rash acute December 14 2:15pm Urinary frequency acute November 182024 2:15pm Breast cancer of lower-inner quadrant of right female breast chronic December 14, 2024 2:15pm Osteopenia chronic December 14 2:15pm Chest pressure resolved November 2:15pm Drug rash resolved December 14 2:15pm Left knee DJD acute March 10, 2025 1:40pm [facility] Work Phone: [phone] [facility]04-23-2025 History of Present illness Narrative* Christy Luna APRN.CNP - 12/09/2024 4:02 PM EDT Reviewed, continue with current plan of care. Will have office staff arrange annual follow-up with Dr. Gorman or STEPHANIE. Christy Luna APRN.ARELY * Jeanna Pickens RN - 12/09/2024 10:49 AM EDT Lt breast incision well approximated and healing well. Very small amount of yellow bruising noted near device site. No redness, drainage, or hematoma noted. Pt denies pain, fever, or chills. Pt voices understanding that she may shower but not submerge in water. Pt encouraged to keep incision open to air. Pt discouraged from applying any ointments or lotions to incision. Pt will call our office should incision develop redness or drainage. Pt will call our office with new pain or fever. Jeanna Pickens RN [facility]03-21-2025 Telephone encounter Note* Telephone Encounter - Yazmin Maravilla RN - 11/06/2024 1:12 PM EDT Pt's name has been added to [facility] procedure board. Yazmin Maravilla RN [facility]03-21-2025 Miscellaneous Notes* Telephone Encounter - Yazmin Maravilla RN - 11/06/2024 1:12 PM EDT Pt's name has been added to [facility] procedure board. Yazmin Maravilla, RN * Telephone Encounter - Alondra Hauser - 11/06/2024 1:00 PM EDT Patient is scheduled for an ILR Implant on 11/[address] Gorman The hospital will call the day before between 2-5pm with your arrival time. Patient will go home same day. Local anesthetic only; no food, driving or medication restrictions needed. Spoke with Bo Monteiro on November 06, 2024. Informed of instructions as stated above. Patient verbalized understanding. Alondra Hauser [facility] Telephone encounter Note * Telephone Encounter - Alondra Hauser - 11/06/2024 1:00 PM EDT Patient is scheduled for an ILR Implant on 11/[address] Gorman The hospital will call the day before between 2-5pm with your arrival time. Patient will go home same day. Local anesthetic only; no food, driving or medication restrictions needed. Spoke with Bo Monteiro on November 06, 2024. Informed of instructions as stated above. Patient verbalized understanding. Alondra Hauser [facility]03-19-2025 [facility]03-19-2025 History of Present illness Narrative* Francisco Gorman MD - 11/04/2024 3:29 PM EDT Images from the original note were not included. Heart and Vascular [facility] SECTION OF CARDIAC PACING and ELECTROPHYSIOLOGY OUTPATIENT VISIT DATE November 04, 2024 OUTPATIENT VISIT TYPE ESTABLISHED PRIMARY CARE PHYSICIAN: Loan Dias (Debra) [address] [facility] [address] [place] [id number] HISTORY OF PRESENT ILLNESS: 69 year-old female with history of essential hypertension, cryptogenic CVA, found to have a large PFO, underwent percutaneous closure in August 2023 developed constant nonexertional retrosternal chest pain several days ago, was seen in the ER, was in normal sinus rhythm at the time, was discharged, continued having pain and then developed palpitation, return to the ER, and ECG demonstrated atrial fibrillation with RVR. The patient cardioverted and admitted to telemetry, started on oral anticoagulation. Her presentation was suggestive of pericarditis, and she was treated with oral colchicine.Throughout hospital stay she had several episodes of atrial fibrillation with markedly rapid ventric ular rate exceeding 200 beats a minute with spontaneous termination. She was started on oral amiodarone and eventually discharged with event monitor. Ms. Monteiro presents for an office visit. She continues experiencing sensation of heart jumping, although her Apple Watch does not report any rhythm abnormalities. Her ECG shows sinus rhythm. Eventmonitor demonstrated no recurrence of atrial fibrillation, however she had 32 pauses up to 4 and half seconds during the day and nighttime. She remains on oral anticoagulation and diltiazem. PAST MEDICAL HISTORY Diagnosis Date Arterial ischemic stroke (HCC) Arthritis Breast cancer (HCC) 04/07/2020 Ectopic fetus tube removed HLD (hyperlipidemia) Hypertension Irregular heart beat PFO (patent foramen ovale) MEDICATIONS: ascorbic acid, vitamin C, (VITAMIN C) 500 mg tablet Take 500 mg by mouth two times a day. dilTIAZem HCl 360 mg 24 hr capsule Take 1 capsule by mouth once daily. colchicine 0.6 mg tablet Take 1 tablet by mouth once daily. apixaban (ELIQUIS) 5 mg tab(s) Take 1 tablet by mouth two times a day. pantoprazole DR (PROTONIX) 20 mg tablet Take 1 tablet by mouth daily at 6 am. prochlorperazine (COMPAZINE) 10 mg tablet Take 1 tablet by mouth every 6 hours as needed. aspirin, enteric coated (ECOTRIN LOW STRENGTH) 81 mg EC tablet Take 1 tablet by mouth once daily. acetaminophen (TYLENOL) 500 mg tablet Take 1,000 mg by mouth every 6 hours as needed for pain. cholecalciferol (VITAMIN D3) 1,000 unit tab tablet Take 1,000 Units by mouth once daily. exemestane (AROMASIN) 25 mg tablet Take 25 mg by mouth every evening. calcium carbonate/vitamin D3 (CALCIUM 600 + D ORAL) Take 1 tablet by mouth three times a day. Review of Systems Constitutional: Negative for fatigue. Respiratory: Negative for shortness of breath. Cardiovascular: Positive for palpitations. Negative for chest pain. Neurological: Negative for syncope. Psychiatric/Behavioral: The patient is nervous/anxious. PHYSICAL EXAMINATION: BP 143/87 (BP Site: Left Arm, BP Position: Sitting, BP Cuff Size: Regular Adult) Pulse 76 Wt 165 lb (74.8 kg) SpO2 98% BMI 31.18 kg/m BP w/Orthostatic Vitals Date and Time Orthostatic BP Orthostatic Pulse BP Pulse BP Position BP Site BP Cuff Size 11/04/24 1442 -- -- 143/87 76 Sitting Left Arm Regular Adult Physical Exam Constitutional: Appearance: Normal appearance. HENT: Head: Normocephalic and atraumatic. Eyes: Conjunctiva/sclera: Conjunctivae normal. Cardiovascular: Rate and Rhythm: Normal rate and regular rhythm. Pulmonary: Effort: Pulmonary effort is normal. No respiratory distress. Breath sounds: No stridor. Skin: General: Skin is dry. Coloration: Skin is not pale. Neurological: Mental Status: She is alert and oriented to person, place, and time. Psychiatric: Mood and Affect: Mood normal. I have personally reviewed the Electrocardiogram. Assessment PLAN AND RECOMMENDATIONS: ASSESSMENT/PLAN: 1. Paroxysmal atrial fibrillation (HCC) - ICD9: 427.31, ICD10: I48.0 (primary diagnosis) Symptomatic, diagnosed shortly after percutaneous PFO closure procedure. Currently suppressed with amiodarone. Will discontinue amiodarone and arrange for subcutaneous loop recorder implantation for long-term rhythm monitoring. If atrial fibrillation recurrences continue, may require antiarrhythmictherapy, likely after implantation of a permanent pacemaker, given recurrent pauses noted on the monitor. Loop recorder will also assist in deciding whether [facility] anticoagulation is necessary - SURGICAL REQUEST - ELECTIVE (03/2020) 2. Sinus bradycardia - ICD9: 427.89, ICD10: R00.1 - SURGICAL REQUEST - ELECTIVE (03/2020) Francisco Gorman MD CONTACT INFORMATION: Francisco Gorman MD documented [facility] Radiology Diagnostic study note [facility] Imaging Services [address] [place], [place] [id number] Abdomen Limited MR#: [id number] Acct: [id number] Name: BO MONTEIRO Rep #: [id number] : 1955 F 69 From: Omar Perez DO PCP: KEYA Reaves Status: REG CLI Study:Abdomen Limited Date of Exam: 10/17 01/10 Exam# [id number] Ordering Dr: Antonia Escalante MD PROCEDURE: ABDOMEN LIMITED REASON FOR EXAM: LIVER LESIONS COMPARISON: None FINDINGS: Liver: Grossly normal size and echotexture. 2 small hepatic cysts, largest measuring up to 1.3 cm. Gallbladder: No stones, sludge, wall thickening or tenderness. A couple of small gallbladder polyps, largest measuring up to 4 mm. Common bile duct: Normal measuring 4 mm. Pancreas: Visualized portions are sonographically unremarkable. Visualized portions of the right kidney are unremarkable. No right upper quadrant ascites. US/Abdomen Limited IMPRESSION: 1. 2 small hepatic cysts. 2. Small gallbladder polyps. Reading Location: [facility] CC: KEYA Dias; Dr. Antonia Escalante MD ~ Glass Melt Operator: Signed [facility]03-12-2025 History of Present illness Narrative* Smith Lopez MD - 10/28/2024 10:20 AM EDT Chief Complaint: Patient presents with: CARD Follow Up 1 Month: Follow up to pfo Bo Monteiro is a 68 year old female with a known past medical history of hypertension, hyperlipidemia, questionable irregular heartbeat many years ago which was found to be PVCs, lacunar strokewhich was deemed to be cryptogenic in nature after full workup, PFO status post PFO closure on aspirin and Plavix at this time, now paroxysmal atrial fibrillation who presents for follow-up on her chronic cardiac issues. Since her closure device she has had episodes of atrial fibrillation which were documented and she has been admitted to the hospital multiple times for this. She had 1 complaint of chest discomfort which she states resolved with colchicine. In the hospital she was started on Cardizem and amiodarone with plans for tapering and loop recorder to be placed after for further monitoring. She had 1 syncopal episode since then and she is being seen by EP for this in addition to Nidhi-fib. The patient denies any complaints of chest pain or pressure. He denies any dyspnea, orthopnea, paroxysmal nocturnal dyspnea, denies any or leg swelling. She states she does feel the palpitations every once in a while. PAST MEDICAL HISTORY Diagnosis Date Arterial ischemic stroke (HCC) Arthritis Breast cancer (HCC) 04/07/2020 Ectopic fetus tube removed HLD (hyperlipidemia) Hypertension Irregular heart beat PFO (patent foramen ovale) PAST SURGICAL HISTORY Procedure Laterality Date BREAST BIOPSY Right 04/05/2020 BREAST LUMPECTOMY HX Right 04/22/2020 SECTION HX x 3 EXCISION OF CYST 1994 Right breast IMPLANT CATH INSERTION (AG) 06/08/2020 KNEE SURGERY HX Left 11/2023 menicus tear TREAT ECTOPIC PREG,NON REMVAL FAMILY HISTORY Problem Relation Age of Onset Hypertension Mother Stroke Mother Emphysema Father other (Lung Cancer) Father Prostate Cancer Brother Hypertension Maternal Grandmother Stroke Maternal Grandmother Stroke Maternal Aunt Social History Tobacco Use Smoking status: Former Types: Cigarettes Smokeless tobacco: Never Tobacco comments: Pt smoked one pack weekly x 1 year. Vaping Use Vaping status: Never Used Substance Use Topics Alcohol use: Not Currently Alcohol/week: 12.0 standard drinks of alcohol Types: 7 Glasses of wine, 5 Glasses of Wine (5oz) per week Comment: rately Drug use: Yes Types: Marijuana Comment: gummies as needed Current Outpatient Medications Medication Sig ascorbic acid, vitamin C, (VITAMIN C) 500 mg tablet Take 500 mg by mouth two times a day. dilTIAZem HCl 360 mg 24 hr capsule Take 1 capsule by mouth once daily. colchicine 0.6 mg tablet Take 1 tablet by mouth once daily. apixaban (ELIQUIS) 5 mg tab(s) Take 1 tablet by mouth two times a day. pantoprazole DR (PROTONIX) 20 mg tablet Take 1 tablet by mouth daily at 6 am. Amiodarone HCl 400 mg tablet Take 1 tablet by mouth once daily for 14 days, THEN 1/2 tablet once daily. prochlorperazine (COMPAZINE) 10 mg tablet Take 1 tablet by mouth every 6 hours as needed. aspirin, enteric coated (ECOTRIN LOW STRENGTH) 81 mg EC tablet Take 1 tablet by mouth once daily. acetaminophen (TYLENOL) 500 mg tablet Take 1,000 mg by mouth every 6 hours as needed for pain. cholecalciferol (VITAMIN D3) 1,000 unit tab tablet Take 1,000 Units by mouth once daily. exemestane (AROMASIN) 25 mg tablet Take 25 mg by mouth every evening. calcium carbonate/vitamin D3 (CALCIUM 600 + D ORAL) Take 1 tablet by mouth three times a day. sodium chloride 0.9 %, flush, (BD POSIFLUSH) syringe Inject 2-10 mL intravenously as directed. For Echo procedure (Patient not taking: Reported on 10/28/2024) sodium chloride 0.9 %, flush, (BD POSIFLUSH) syringe Inject 2-10 mL intravenously as directed. For Echo procedure (Patient not taking: Reported on 10/28/2024) sodium chloride 0.9 %, flush, (BD POSIFLUSH) syringe Inject 2-10 mL intravenously as directed. For Echo procedure (Patient not taking: Reported on 10/28/2024) Garlic 500 mg cap Take 1 capsule by mouth once daily. cyanocobalamin (VITAMIN B-12) 1,000 mcg tab Take 1,000 mcg by mouth once daily. (Patient not taking: Reported on 10/28/2024) vitamin E, dl,tocopheryl acet, (VITAMIN E, DL, ACETATE,) 450 mg (1,000 unit) cap Take 1 capsule by mouth once daily. (Patient not taking: Reported on 10/28/2024) No current facility-administered medications for this visit. ALLERGIES Allergen Reactions Oxycodone-Acetamino* Rash Tape [Adhesive Tape* Rash Cardiac Testing MRI brain 04/21/2024: IMPRESSION: 1. Small punctate acute to subacute infarct of RIGHT precentral gyrus. No hemorrhage or hemorrhagic transformation. 2. Chronic changes as detailed above. 3. No intracranial metastatic disease. CTA neck with IV contrast 04/21/2024: IMPRESSION: 1. No evidence of significant carotid or vertebral artery stenosis 2. No evidence of acute large vessel occlusion intracranially. No significant intracranial stenosis. 3. Suggestion of a left cerebellar pontine angle soft tissue lesion (versus artifact). This could be more completely characterized with MRI. Arterial blood flow was measured to detect acute large vessel occlusion by computer aided detection software: Not Performed. Concordance between software and imaging review: Not Applicable. Review of Systems: GENERAL: She has lost about 30 pounds in the past year intentionally HEENT: Negative for frequent or significant headaches NECK: Negative for goiter, pain or significant neck swelling RESPIRATORY: See HPI CARDIOVASCULAR: See HPI MUSCULOSKELETAL: Right sided weakness resolved Physical Examination:: BP 138/80 Pulse 73 Wt 167 lb (75.8kg) SpO2 98% General Appearance: Well appearing, alert, in no acute distress, well-hydrated, well nourished.. Skin: Skin color, texture, turgor normal, no suspicious rashes or lesions. Head: Normocephalic, no masses, lesions, tenderness or abnormalities. Eyes: Anicteric sclera. Pupils are equally round. Extraocular movements are intact. . Neck: Supple, no adenopathy; thyroid symmetric, normal size, no bruits. Lungs: Lungs clear to auscultation. No wheezing, rhonchi, rales.. Heart: regular rate and rhythm, no murmur, gallop or rub, normal, S1, S2, physiologic split Peripheral Pulses: Normal. ASSESSMENT/PLAN: 1. PFO (patent foramen ovale) - ICD9: 745.5, ICD10: Q21.12 (primary diagnosis) Status post 30 mm [place] cribriform septal occluder with good result. This was complicated by paroxysms of atrial fibrillation which somehow has been off and on for the past couple of months. Continue aspirin, Plavix 2. Paroxysmal atrial fibrillation (HCC) - ICD9: 427.31, ICD10: I48.0 I am unsure if this is due to PFO closure device versus de chantel atrial fibrillation. From closure device usually it is self-limiting yet it seems that her A-fib is relatively difficult to control. She is being followed by EP for this at this time. - DILTIAZEM CD 360 MG CAPSULE,EXTENDED RELEASE 24 HR - AMIODARONE 400 MG TABLET Follow-up in 6 months Smith Ayala MD Television Installer of Internal Medicine [facility] Interventional Cardiology [facility] Structural Heart Disease [address], [address] [place] [address] Facsimile: [phone] Email: [email or web address] documented in [facility] encounterCl[facility]25 [facility]03-10-2025 Telephone encounter Note* Telephone Encounter - Jeanna Pickens RN - 10/26/2024 11:51 AM EDT Mayo from {[facility] called in with abnormal Holter alert: Pt experienced fainting on 10/01 at 8:30 am. He will fax report and states it has been uploaded to portal. Jeanna Pickens RN [facility]03-10-2025 Miscellaneous Notes* Telephone Encounter - Jeanna Pickens RN - 10/26/2024 11:51 AM EDT Mayo from {[facility] called in with abnormal Holter alert: Pt experienced fainting on 10/01 at 8:30 am. He will fax report and states it has been uploaded to portal. Jeanna Pickens RN documented in this encounterCl[facility]02-14-2025 Telephone encounter Note * Telephone Encounter - Jeanna Pickens RN - 10/02/2024 10:30 AM EST Called and spoke with Travis to relay Maddison's recommendations. She states pt is taking amiodarone as specified by Maddison until she follows up with Dr. Gorman. She reports Bo is doing better this morning. Jeanna Pickens RN [facility]02-14-2025 Miscellaneous Notes* Telephone Encounter - Jeanna Pickens RN - 10/02/2024 10:30 AM EST Called and spoke with Travsi to relay Maddison's recommendations. She states pt is taking amiodarone as specified by Maddison until she follows up with Dr. Gorman. She reports Bo is doing better this morning. Jeanna Pickens RN * Telephone Encounter - Christy Luna APRN.CNP - 10/02/2024 10:25 AM EST Agree with the recommendations. She should be taking amiodarone 400 mg daily x 14 days (from hospital discharge) with subsequent reduction to 200 mg daily until she follows up with Dr. Gorman. Christy Luna APRN.ARELY * Telephone Encounter - Yazmin Maravilla RN - 10/02/2024 8:43 AM EST Spoke with Travis. She report pt did well all afternoon 10/01/24. She reports pt took her first doseof just the daily amiodarone 200 mg last night. She reports this morning pt reports wooziness, nausea and dizziness. She reports SBP 90s mmHg with HR 50s. She reports she will wait to give daily cardizem until BP and HR are higher. She is agreeable to take pt to ER if needed for syncope. Yazmin Maravilla RN * Telephone Encounter - Yazmin Maravilla RN - 10/02/2024 8:37 AM EST Images from the original note were not included. Shyam Acevedo APRN.[employer] You16 hours ago (4:22 PM) DL Covering for Maddison Luna CNP. Patient was discharged from the hospital 09/30/2024 on amiodarone 400 mg daily x 14 days to be followed by 200 mg daily thereafter in addition to diltiazem CD 360 mg dailyas well as Eliquis 5 mg twice daily. Patient was hooked up to 14-day extended satellite project site monitor. If patient has had syncopal or near syncopal episodes post discharge she should seek further evaluation in ED setting when these occur. She more than likely needs to remain on aforementioned meds as her A-fibwith RVR in hospital was considerably rapid at times greater than 200 bpm. Should she continue to experience episodes like this we would have to consider potentially lowering Cardizem CD dose. Thanks, Shyam Acevedo APRN.ARELY October 01, 2024 4:21 PM * Telephone Encounter - Yazmin Maravilla RN - 10/01/2024 1:30 PM EST Daughter Travis who is a nurse calls to report pt is feeling better. She reports by noon pt's HR back up to 70s bpm and BP 117/70 mmHg. She reports she gave her mother her diltiazem. She reports evenafter diltiazem HR remains in the 70s bpm. Yazmin Maravilla RN * Telephone Encounter - Grace Ag LPN - 10/01/2024 9:21 AM EST Bo C Cecil patient's daughter called i stated as of today at 8 am mom has had diarrhea, syncope with 45 heart rate) (was caught by daughter prior to hitting floor) B/P 94/70, 102/75 ( heart rate running 55-61) Patient's daughter holding Diltiazem until she gets better instruction,and because of mom's syncope. Grace Ag LPN October 01, 2024 9:33 AM documented in this encounterCl[facility]02-[facility]-2025 Telephone encounter Note * Telephone Encounter - Christy Luna APRN.CNP - 10/02/2024 10:25 AM EST Agree with the recommendations. She should be taking amiodarone 400 mg daily x 14 days (from hospital discharge) with subsequent reduction to 200 mg daily until she follows up with Dr. Gorman. Christy Luna APRN.ARELY [facility]02-14-2025 Telephone encounter Note* Telephone Encounter - Yazmin Maravilla RN - 10/02/2024 8:43 AM EST Spoke with Travis. She report pt did well all afternoon 10/01/24. She reports pt took her first doseof just the daily amiodarone 200 mg last night. She reports this morning pt reports wooziness, nausea and dizziness. She reports SBP 90s mmHg with HR 50s. She reports she will wait to give daily cardizem until BP and HR are higher. She is agreeable to take pt to ER if needed for syncope. Yazmin Maravilla RN [facility]02-14-2025 Telephone encounter Note* Telephone Encounter - Yazmin Maravilla RN - 10/02/2024 8:37 AM EST Images from the original note were not included. Shyam Acevedo, STEPHANIE.[employer] You16 hours ago (4:22 PM) DL Covering for Maddison Luna CNP. Patient was discharged from the hospital 09/30/2024 on amiodarone 400 mg daily x 14 days to be followed by 200 mg daily thereafter in addition to diltiazem CD 360 mg dailyas well as Eliquis 5 mg twice daily. Patient was hooked up to 14-day extended satellite project site monitor. If patient has had syncopal or near syncopal episodes post discharge she should seek further evaluation in ED setting when these occur. She more than likely needs to remain on aforementioned meds as her A-fibwith RVR in hospital was considerably rapid at times greater than 200 bpm. Should she continue to experience episodes like this we would have to consider potentially lowering Cardizem CD dose. Thanks, Shyam Acevedo APRN.ARELY October 01, 2024 4:21 PM [facility]02-13-20[facility] Telephone encounter Note* Telephone Encounter - Yazmin Maravilla RN - 10/01/2024 1:30 PM EST Daughter Travis who is a nurse calls to report pt is feeling better. She reports by noon pt's HR back up to 70s bpm and BP 117/70 mmHg. She reports she gave her mother her diltiazem. She reports evenafter diltiazem HR remains in the 70s bpm. Yazmin Maravilla RN [facility]02-13-2025 Telephone encounter Note* Telephone Encounter - Grace Ag LPN - 10/01/2024 9:21 AM EST Bo Jennifer Cecil patient's daughter called i stated as of today at 8 am mom has had diarrhea, syncope with 45 heart rate) (was caught by daughter prior to hitting floor) B/P 94/70, 102/75 ( heart rate running 55-61) Patient's daughter holding Diltiazem until she gets better instruction,and because of mom's syncope. Grace Ag LPN October 01, 2024 9:33 AM [facility]02-12-2025 [facility]02-12-2025 [facility]02-12-2025 [facility]02-12-2025 Telephone encounter Note* Telephone Encounter - Alondra Hauser - 09/30/2024 3:23 PM EST Follow up(s) scheduled. Patient to be notified upon discharge. Alondra Hauser [facility]02-12-2025 Miscellaneous Notes* Telephone Encounter - Alondra Hauser - 09/30/2024 3:23 PM EST Follow up(s) scheduled. Patient to be notified upon discharge. Alondra Hauser * Telephone Encounter - Christy Luna APRN.CNP - 09/30/2024 2:01 PM EST Please arrange follow-up with Dr. Gorman in about 2 months. Patient was seen for paroxysmal atrial fibrillation, placed on amiodarone in the setting of pericarditis, may need to consider loop recorder implantation. She will be discharged with 30-day event monitor will need results available for a ppointment. She may be discharged today. Thank you. Christy Luna APRN.CNP documented in this encounterCl[facility]02-12-2025 Telephone encounter Note * Telephone Encounter - Christy Luna APRN.CNP - 09/30/2024 2:01 PM EST Please arrange follow-up with Dr. Gorman in about 2 months. Patient was seen for paroxysmal atrial fibrillation, placed on amiodarone in the setting of pericarditis, may need to consider loop recorder implantation. She will be discharged with 30-day event monitor will need results available for a ppointment. She may be discharged today. Thank you. Christy Luna APRN.ARELY [facility]02-12-2025 Telephone encounter Note* Telephone Encounter - Lexa Lew - 09/30/2024 1:26 PM EST Spoke to patient and scheduled 1mo PFO Closure follow up for 10/28/24 at 10:20 AM. ThanksLexa [facility]02-12-2025 Miscellaneous Notes* Telephone Encounter - Lexa Lew - 09/30/2024 1:26 PM EST Spoke to patient and scheduled 1mo PFO Closure follow up for 10/28/24 at 10:20 AM. Lexa Alcocer * Telephone Encounter - Vandana Goldstein APRN.CNP - 09/30/2024 1:04 PM EST Please schedule patient to see Dr. Ayala in 1 month for PFO Closure follow up. Vandana Goldstein APRN.CNP documented in this encounterCl[facility]02-12-2025 Telephone encounter Note * Telephone Encounter - Vandana Goldstein APRN.CNP - 09/30/2024 1:04 PM EST Please schedule patient to see Dr. Ayala in 1 month for PFO Closure follow up. Vandana Goldstein APRN.CNP [facility]02[facility]02-10-2025 [facility]02-10-[address] [facility]02-10-2025 [facility] 09-27-2024 [facility]02-09-2025 [facility]02-09-2025 [facility]02-08-2025 [facility]02-08-2025 [facility]02-08-2025 [facility]02-08-2025 [facility]02-08-[address] [facility]02-08-2025 NoteHNO ID: [id number] Author: NOTE, INTERFACE, ? Service: ? Author Type: ? Type: Progress Notes Filed: 09/26/2024 02:48 Note Text: Epic Scheduled Downtime: 09/26/2024 1:00:00 AM to 09/26/2024 2:36:00 [facility]02-05-2025 Telephone encounter Note* Telephone Encounter - Ilda Easton LPN - 09/23/2024 4:21 PM EST Images from the original note were not included. Smith Lopez MD You5 minutes ago (4:16 PM) Talked to patient over the phone and addressed all of her concerns. Smith Alcocer [facility]02-05-2025 Miscellaneous Notes* Telephone Encounter - Ilda Easton LPN - 09/23/2024 4:21 PM EST Images from the original note were not included. Smith Lopez MD You5 minutes ago (4:16 PM) Talked to patient over the phone and addressed all of her concerns. Smith Alcocer * Telephone Encounter - Ilda Easton LPN - 09/23/2024 12:06 PM EST Ms. Monteiro is calling stating she went to the emergency room on 09/22/2024 to be evaluated. Patient was evaluated but is still experiencing chest pain with walking around her house. Patient is planning on going to [place] on 09/24/2024 and wants to make sure she is still able to go. Ilda Easton LPN * Telephone Encounter - Jeanna Pickens RN - 09/22/2024 5:02 PM EST Bo Jennifer Monteiro and daughter called in. She expressed frustration about not receiving a call backand not receiving any discharge paper work when she was discharged from procedure. Pt is in the ER.She would like to know what the activity guidelines are post procedure, and also if this CP is considered normal. Jeanna Pickens RN * Telephone Encounter - Mary Boothe RN - 09/22/2024 2:00 PM EST Pts daughter called the office. Daughter states that they called a squad and went to the ED. Daughter wanted Dr. Lopez to be aware. Mary Boothe, RN * Telephone Encounter - Ilda Easton LPN - 09/22/2024 11:12 AM EST Ms. Monteiro is calling in stating that she went to exercise by walking at a recreation center and made it less then 1/4 mile before her heart started to race and she felt dizziness, light-headedness and racing heart rate of 135 beats per minute. Patient states she did not receive any restriction based discharge paperwork but was curious if she should have at that time. Patient is also concerned this will affect her ability to travel to [place] on 09/24/2024 for 4 days. Patient is asking for instructions at this time based on symptoms. Ilda Easton LPN * Telephone Encounter - Ilda Easton LPN - 09/22/2024 9:25 AM EST Ms. Monteiro is calling in stating she was told to try to follow up with Dr. Lopez after 1 month from her PFO closure. Is patient to be scheduled for this follow up or the 6 month follow up from appointment on 06/24/2024. Ilda Easton LPN documented in this encounterCl[facility]02-[facility]-2025 Telephone encounter Note * Telephone Encounter - Ilda Easton LPN - 09/23/2024 12:06 PM EST Ms. Monteiro is calling stating she went to the emergency room on 09/22/2024 to be evaluated. Patient was evaluated but is still experiencing chest pain with walking around her house. Patient is planning on going to [place] on 09/24/2024 and wants to make sure she is still able to go. Ilda Easton LPN [facility]02-04-2025 Telephone encounter Note* Telephone Encounter - Jeanna Pickens RN - 09/22/2024 5:02 PM EST Bose Jennifer Monteiro and daughter called in. She expressed frustration about not receiving a call backand not receiving any discharge paper work when she was discharged from procedure. Pt is in the ER.She would like to know what the activity guidelines are post procedure, and also if this CP is considered normal. Jeanna Pickens RN [facility]02-04-2025 Telephone encounter Note* Telephone Encounter - Mary Boothe RN - 09/22/2024 2:00 PM EST Pts daughter called the office. Daughter states that they called a squad and went to the ED. Daughter wanted Dr. Lopez to be aware. Mary Boothe RN [facility]02-04-2025 Telephone encounter Note* Telephone Encounter - Ilda Easton LPN - 09/22/2024 11:12 AM EST Ms. Monteiro is calling in stating that she went to exercise by walking at a recreation center and made it less then 1/4 mile before her heart started to race and she felt dizziness, light-headedness and racing heart rate of 135 beats per minute. Patient states she did not receive any restriction based discharge paperwork but was curious if she should have at that time. Patient is also concerned this will affect her ability to travel to [place] on 09/24/2024 for 4 days. Patient is asking for instructions at this time based on symptoms. Ilda Easton LPN [facility]02-04-2025 Telephone encounter Note* Telephone Encounter - Ilda Easton LPN - 09/22/2024 9:25 AM EST Ms. Monteiro is calling in stating she was told to try to follow up with Dr. Lopez after 1 month from her PFO closure. Is patient to be scheduled for this follow up or the 6 month follow up from appointment on 06/24/2024. Ilda Easton LPN [facility]01-23-2025 Progress note* [facility] - Chantel Lynn RT(R) - 09/10/2024 1:20 PM EST Radiology Service Progress Note PATIENT NAME: Bo Monteiro DATE OF SERVICE: September 10, 2024 TIME: 1:21 PM PATIENT IDENTITY VERIFICATION COMPLETED USING TWO (2) IDENTIFIERS: Name and Date of confirmedby patient verbally and Name and Date of confirmed by identification band. FALL SCREENING: Has the patient had 2 falls in the last year or 1 fall with injury or currently using an Ambulatory Assistive Device (Walker, Cane, Wheelchair, Crutches, etc.)? Inpatient: Screened onssm rehab PATIENT GENDER DATA: Assigned female at . status: : No status:NO. PATIENT RELEVANT IMPLANT DATA REVIEWED: Not Applicable PATIENT PRESENTS WITH AN IMPLANTABLE OR ATTACHED WELDER ASSEMBLER: No RADIOLOGY DEPARTMENT: General X-ray: Exam(s) Completed: Chest X-Ray PERIPHERAL IV DATA: Not applicable SIGNED BY: RT Adriana(Jasbir) September 10, 2024 1:21 PM [facility]01-23-2025 Miscellaneous Notes* [facility] - Chantel Lynn RT(R) - 09/10/2024 1:20 PM EST Radiology Service Progress Note PATIENT NAME: Bo Monteiro DATE OF SERVICE: September 10, 2024 TIME: 1:21 PM PATIENT IDENTITY VERIFICATION COMPLETED USING TWO (2) IDENTIFIERS: Name and Date of confirmedby patient verbally and Name and Date of confirmed by identification band. FALL SCREENING: Has the patient had 2 falls in the last year or 1 fall with injury or currently using an Ambulatory Assistive Device (Walker, Cane, Wheelchair, Crutches, etc.)? Inpatient: Screened onssm rehab PATIENT GENDER DATA: Assigned female at . status: : No status:NO. PATIENT RELEVANT IMPLANT DATA REVIEWED: Not Applicable PATIENT PRESENTS WITH AN IMPLANTABLE OR ATTACHED WELDER ASSEMBLER: No RADIOLOGY DEPARTMENT: General X-ray: Exam(s) Completed: Chest X-Ray PERIPHERAL IV DATA: Not applicable SIGNED BY: RT Adriana(R) September 10, 2024 1:21 PM documented in this encounterCl[facility]01-[facility]25 Surgery Surgical operation note* Operative Report - Smith Lopez MD - 09/10/2024 11:06 AM EST PROCEDURE: Intracardiac Echocardiography PFO Closure with a 30mm [place] Cardioform septal occluder Name: Bo Monteiro Date: September 10, 2024 STAFF PHYSICIAN: Dr. Smith Ayala MD ACCESS: 11F RFV superior access, 11F RFV inferior Access DEVICE: 30mm [place] Cardioform septal occluder device DETAILS OF PROCEDURE: After yielding full informed consent including discussion of risks, benefits, and alternatives to this procedure, the patient was brought to the Cardiac Catheterization Lab. The patient was dressed and draped in the usual sterile fashion and 1% lidocaine used for local anesthesia for sheath placement. An 11 Fr long sheath was placed in the right femoral vein after preclosure with perclose x1 and an 11 Fr short sheath was placed in the right femoral vein after preclosure with perclose x1. Through the 11 Fr Long sheath, the AcuNAV ICE probe was advanced to the RA. Images were taken which showing positive PFO. Agitated saline demonstrated quick and brisk crossing into the left atrium. We administered full dose intravenous heparin for anticoagulation to an ACT > 250 sec. The atrial septum was crossed using a J wire and a 6 Fr MPA catheter. We exchanged for an Amplatz Extra stiffJ-tip wire. Images were taken which showing +PFO with long tunnel. A 30mm device was selected and deployed it in the PFO. ICE was used to confirm placement; this did not show any residual leak acrossthe interatrial septum. We confirmed no new pericardial effusion present after device with ICE. Fluoroscopic evaluation of the chest demonstrated no new pleural effusions. We then removed all equipment and closed the femoral vein access with a perclose proglide .The patient tolerated the procedure well. COMPLICATIONS: None HEMOSTASIS: Perclose IMPRESSION: Successful PFO closure PLAN: 1) Three months aspirin 81mg and Plavix 75mg daily 2) Five days Keflex antibiotic prophylaxis 3) TTE w/ bubble and CXR (PA / lateral) today 4) Follow-up one month with TTE w/ bubble and ECG prior 5) Dispo: tentative same-day discharge after echo if no issues with ambulation Smith Ayala MD Television Installer of Internal Medicine [facility] Interventional Cardiology [facility] [address], [address] [place] [address] Facsimile: [phone] Email: [email or web address] [facility]01-23-2025 Surgical operation note* Operative Report - Smith Lopez MD - 09/10/2024 11:06 AM EST PROCEDURE: Intracardiac Echocardiography PFO Closure with a 30mm [place] Cardioform septal occluder Name: Bo Monteiro Date: September 10, 2024 STAFF PHYSICIAN: Dr. Smith Ayala MD ACCESS: 11F RFV superior access, 11F RFV inferior Access DEVICE: 30mm [place] Cardioform septal occluder device DETAILS OF PROCEDURE: After yielding full informed consent including discussion of risks, benefits, and alternatives to this procedure, the patient was brought to the Cardiac Catheterization Lab. The patient was dressed and draped in the usual sterile fashion and 1% lidocaine used for local anesthesia for sheath placement. An 11 Fr long sheath was placed in the right femoral vein after preclosure with perclose x1 and an 11 Fr short sheath was placed in the right femoral vein after preclosure with perclose x1. Through the 11 Fr Long sheath, the AcuNAV ICE probe was advanced to the RA. Images were taken which showing positive PFO. Agitated saline demonstrated quick and brisk crossing into the left atrium. We administered full dose intravenous heparin for anticoagulation to an ACT > 250 sec. The atrial septum was crossed using a J wire and a 6 Fr MPA catheter. We exchanged for an Amplatz Extra stiffJ-tip wire. Images were taken which showing +PFO with long tunnel. A 30mm device was selected and deployed it in the PFO. ICE was used to confirm placement; this did not show any residual leak acrossthe interatrial septum. We confirmed no new pericardial effusion present after device with ICE. Fluoroscopic evaluation of the chest demonstrated no new pleural effusions. We then removed all equipment and closed the femoral vein access with a perclose proglide .The patient tolerated the procedure well. COMPLICATIONS: None HEMOSTASIS: Perclose IMPRESSION: Successful PFO closure PLAN: 1) Three months aspirin 81mg and Plavix 75mg daily 2) Five days Keflex antibiotic prophylaxis 3) TTE w/ bubble and CXR (PA / lateral) today 4) Follow-up one month with TTE w/ bubble and ECG prior 5) Dispo: tentative same-day discharge after echo if no issues with ambulation Smith Ayala MD Television Installer of Internal Medicine [facility] [place] [address] Facsimile: [phone] Email: [email or web address] documented [facility] Telephone encounter Note * Telephone Encounter - Jeanna Pickens RN - 09/01/2024 9:59 AM EST Bo Monteiro called in to inquire about next steps in scheduling the PFO procedure. She recalls from [facility] that she was told she would be a good candidate for procedure. Jeanna Pickens RN [facility]01-14-2025 Miscellaneous Notes* Telephone Encounter - Jeanna Pickens RN - 09/01/2024 9:59 AM EST Bo Monteiro called in to inquire about next steps in scheduling the PFO procedure. She recalls from [facility] that she was told she would be a good candidate for procedure. Jeanna Pickens, RN * Telephone Encounter - Grace Ag MA - 08/17/2024 1:03 PM EST Patient under the understanding she needs another produce, that will close the whole in her heart. She would like a call back with clarification , patient stated she is not clear what the surgery is called due to being sleepy after surgery on 08/05/24. Grace Ag MA documented [facility] Evaluation note* Diagnosis Onset Date Resolution Status Admit Date Left knee DJD acute August 9:02am Elevated alkaline phosphatas e level acute September 21 9:05am Breast cancer of lower-inner quadrant of right female breast chronic September 21 9:05am Osteopenia chronic September 21, 2024 9:05am Anxiety as acute reaction to gross stress acute September 21 9:15am Encounter for chemotherapy management acute September 21 9:15am Encounter for education acute F ebruary 2024 9:15am Rash acute September 21, 2024 9:15am Urinary frequency acute ua y 2024 9:15am Breast cancer of lower-inner quadrant of right female breast chronic September 21 9:15am Osteopenia chronic September 21, 2024 9:15am Chest pressure resolved September 212024 9:15am Drug rash resolved September 21, 2024 9:15am Insomnia acute October 08, 2024 5:06pm Paroxysmal A-fib acute October 08, 2024 5:06pm Multiple premature ventricular complexes suspected September 202024 5:06pm Breast cancer of lower-inner quadrant of right female breast chronic October 27, 2024 1:32pm [facility] Work Phone: [phone] 386-504712-30-2024 Telephone encounter Note* Telephone Encounter - Grace Ag MA - 08/17/2024 1:03 PM EST Patient under the understanding she needs another produce, that will close the whole in her heart. She would like a call back with clarification , patient stated she is not clear what the surgery is called due to being sleepy after surgery on 08/05/24. Grace Ag MA [facility]12-10-2024 Telephone encounter Note* Telephone Encounter - Alondra Hauser - 07/28/2024 8:55 AM EST Patient is scheduled for a BLACK on 08/05. The hospital will call the day before between 2-5pm with your arrival time. You should not eat or drink after midnight the day before the procedure. You will need a motor coach driver when released from the hospital. You should continue to take medications as prescribed the morning of the procedure with just a sip of water unless otherwise instructed. Spoke with Bo Monteiro on July 28, 2024. Informed of instructions as stated above. Patient verbalized understanding. Alondra Hauser [facility]12-10-2024 Miscellaneous Notes* Telephone Encounter - Alondra Hauser - 07/28/2024 8:55 AM EST Patient is scheduled for a BLACK on 08/05. The hospital will call the day before between 2-5pm with your arrival time. You should not eat or drink after midnight the day before the procedure. You will need a motor coach driver when released from the hospital. You should continue to take medications as prescribed the morning of the procedure with just a sip of water unless otherwise instructed. Spoke with oB Monteiro on July 28, 2024. Informed of instructions as stated above. Patient verbalized understanding. Alondra Hauser documented in this encounterCl[facility]12-09-2024 Instructions* Patient Instructions* Ling Harding APRN.ARELY - 07/27/2024 10:55 AM EST Images from the original note were not included. Regarding your visit with Nurse Practitioner Ling Harding today at the [facility] we discussed the following: IMPRESSION Subacute right MCA ischemic stroke status post IV thrombolytic administration with resolution of left hemiplegia 04/19/2024. Etiology unknown with concern for central source. Vessel imaging without evidence of significant intracranial or extracranial atherosclerosis. Echo demonstrates PFO of unclear significant, RoPE score 5. Cardiac event monitor unremarkable without evidence of atrial fibrillation. Patent foramen ovale, RoPE score 5 History of breast cancer Hypertension Blood pressure today: 125/72 Hyperlipidemia Most recent LDL: 73 PLAN Continue clopidogrel 75 mg daily Follow-up with cardiology for consideration of PFO closure. BLACK to be rescheduled with anesthesia. Optimization of stroke risk factors Blood pressure management: goal BP less than 130/80, continue antihypertensives as prescribed. Recommend home blood pressure monitoring twice daily. Notify primary care provider of elevated readings. Cholesterol control: goal LDL less than 70 Regular follow up with primary care doctor for health maintenance Assist ensuring blood pressure and cholesterol are at goal Screen and manage diabetes Lifestyle modification -- Establish goals Diet Regular exercise Establish weight goals with primary care doctor Reviewed signs and symptoms warranting emergent neurologic evaluation. Return to clinic in 6 months Ling Harding [facility] Nurse Practitioner [place], [place] [address] Office: [phone] Appointments: [phone] Stroke Signs and Symptoms: *Stroke is a medical emergency. Know the warning signs of stroke: Sudden numbness or weakness of the face, arm or leg, especially on one side of the body Sudden confusion, trouble speaking, or understanding Sudden trouble seeing in one eye, or both eyes Sudden trouble walking, dizziness, loss of balance, or coordination Sudden severe headache with no known cause *If you, or someone with you, has one or more of these signs, don't delay! Immediately call [phone], orthe emergency medical services (EMS) number so an ambulance can be sent for you. Also, check the time so that you will know when the symptoms first appeared. It is very important to take immediate action, every second counts. Medical treatment may be available if action is taken early enough. ~~~~~~~~~~~~~~~~~~~~~~~~~~~~~~~~~~~~~~~~~~~~~~~~~~~~~~~~~~~~~~~~~~~ General Guidelines to Help Reduce Risk of Recurrent Stroke Blood Pressure Management: Blood Pressure reduction is recommended for both prevention of recurrent stroke and prevention of other vascular events in persons who have had an ischemic stroke or TIA and are beyond the first 24 hours. Several lifestyle modifications have been associated with BP reduction and are a reasonable part of a comprehensive antihypertensive therapy. These modifications include: Salt restriction (less than 2 grams per day) Weight loss Consumption of a diet rich in fruits, vegetables, and low-fat products Regular aerobic physical activity Limited alcohol consumption Goal: Prehypertension (BP less than 130/80 mm Hg): - Perform annual BP screening and lifestyle modifications Hypertension: (BP greater than or equal to 130/80 mm Hg) - Combine medications with above lifestyle modifications to reach your goal blood pressure as defined above. - Monitor your blood pressure at home regularly to ensure you are reaching your goals Diabetes Mellitus: The goal for glycemic control should be individualized based on the risk for adverse events, patient characteristics and preferences, and, for most patients with diabetes, achieving a goal of HbA1c <=7% is recommended to reduce risk for microvascular complications.Treatment of diabetes should include glucose- lowering medications with proven cardiovascular benefit to reduce the risk for future major adverse cardiovascular events (eg, stroke, heart attack) Cholesterol and Lipid Management Statin (rosuvastatin or atorvastatin) therapy with intensive lipid-lowering effects is recommended to reduce risk of stroke and cardiovascular events among patient with ischemic stroke or TIA who have LDL cholesterol > 100 mg/dL, or evidence of atherosclerosis. A goal of LDL cholesterol < 70 mg/dL for stroke or TIA patients on lipid lowering therapy is recommended. Ezetimibe in combination with statin therapy to lower the LDL cholesterol < 70 mg/DL is recommended, if statin therapy alone is insufficient to attain this treatment target. For patients with ischemic stroke at very high risk, already taking maximally tolerated statin and ezetimibe and still have an LDL cholesterol > 70 mg/dL, it is reasonable to treat with a proprotein convertase subtilisin/kexin type 9 (PCSK9) inhibitor to prevent atherosclerotic cardiovascular orcerebrovascular events. In patients with ischemic stroke or TIA, with fasting triglycerides 135 to 499 mg/dL and LDL cholesterol of 41 to 100 mg/dL, on moderate- or high-intensity statin therapy, with HbA1c <10%, and with no history of pancreatitis, atrial fibrillation, or severe heart failure, treatment with icosapentethyl (IPE) 2 g twice a day is reasonable to reduce risk of recurrent stroke Diet: Reduced sodium and increased potassium intake; DASH-style diet rich in fruits and vegetables (https://www.nhlbi.nih.gov/education/aujc-xwswla-irjr) Consider Mediterranean diet supplemented with nuts Smoking and Tobacco Use: Strongly recommend smoking and tobacco use cessation to reduce risk of stroke. Counseling, nicotine products, and oral smoking cessation medications are effective for helping smokers quit and can be provided if needed. Alcohol Consumption: Patients with ischemic stroke or TIA who drink greater than or equal to 2 alcoholic drinks a day, should eliminate alcohol use or reduce their consumption of alcohol to less than equal to 1 alcohol drink per day to reduce stroke risk Exercise: In patients with stroke or TIA who are capable of physical activity, engaging in at least moderate-intensity aerobic activity for a minimum of 10 minutes 4 times a week or vigorous-intensity aerobic activity for a minimum of 20 minutes twice a week is indicated to lower the risk of recurrent stroke In patients with deficits after stroke that impair their ability to exercise, supervision of an exercise program by a health senior care provider such as a physical therapist or cardiac rehabilitation professional, in addition to routine rehabilitation, can be beneficial for secondary stroke prevention In individuals with stroke or TIA who sit for long periods of uninterrupted time during the day, itmay be reasonable to recommend breaking up sedentary time with intervals as short as 3 minutes of standing or light exercise every 30 minutes for their cardiovascular health Adapted from the [place] [employer]/[place] St[employer] Association: 2021 Guideline for the Prevention of Stroke in Patients With Stroke and Transient Ischemic Attack documented in this encounterCl[facility]12[facility]24 [facility]12-09-[facility]24 History of Present illness Narrative* Ling Harding APRN.CNP - 07/27/2024 10:09 AM EST [facility] Established Visit PCP: Loan Dias (Debra) [address] [facility] [address] [place] [address] CEREBROVASCULAR HISTORY oB Monteiro is a 68 year old female who presents for neurologic evaluation following hospitalization for acute ischemic stroke (04/19/2024-04/23/2024). Reason for Visit: ischemic stroke Date of Last Event: 04/19/2024 History of Event: HOSPITAL COURSE Patient was admitted for Acute ischemic stroke. 68 y/o female admitted for left sided weakness and was found to have an acute/subacute infarct of the right precentral gyrus. She was s/p TNK in the EDand admitted to the neuro ICU, she was later transferred to the S ECHO was obtained and she was found to have a PFO. DVT ultrasounds were negative for DVT. Neurology is recommending 21 days of aspirin and plavix, followed by plavix monotherapy. She was monitored on telemetry without evidence of atrial fibrillation. She will be discharge with an event monitor. Plan for follow up with neurology and interventional cardiology for evaluation for PFO closure. Of notes she did have some breast thickening and irritation at her recent biopsy site after TNK administration with concern for possible small hematoma, she will follow up with her outpatient breast surgery team on discharge. Antiplatelets/Anticoagulants: Aspirin and Clopidogrel Statins: Atorvastatin Residual Deficits: No residual deficits Current PT/OT/ST: None Current Living Situation: Home alone Current use of a mobility aid for walking/getting around: None Interval History: Presents to clinic today unaccompanied Left hand numbness noted when picking up her granddaughter, left arm weakness while driving, left leg weak when getting out of the vehicle. Symptoms improved around 4-5 hours after TNK administration. Symptoms recovered without residual effects. Denies focal neurologic symptoms She recently underwent attempted BLACK last week however unsuccessful due to apnea/gag reflex having to reschedule with anesthesia. History of breast cancer, right sided lumpectomy and chemotherapy 1 year. Notes she underwent biopsy of left breast lump that was found to be benign Left handedness PAST MEDICAL HISTORY Diagnosis Date Arterial ischemic stroke (HCC) Arthritis Breast cancer (HCC) 04/07/2020 Ectopic fetus tube removed HLD (hyperlipidemia) Hypertension Irregular heart beat PFO (patent foramen ovale) PAST SURGICAL HISTORY Procedure Laterality Date BREAST BIOPSY Right 04/05/2020 BREAST LUMPECTOMY HX Right 04/22/2020 SECTION HX x 3 EXCISION OF CYST 1994 Right breast IMPLANT CATH INSERTION (AG) 06/08/2020 KNEE SURGERY HX Left 11/2023 menicus tear TREAT ECTOPIC PREG,NON REMVAL FAMILY HISTORY Problem Relation Age of Onset Hypertension Mother Stroke Mother Emphysema Father other (Lung Cancer) Father Prostate Cancer Brother Hypertension Maternal Grandmother Stroke Maternal Grandmother Stroke Maternal Aunt Social History Tobacco Use Smoking status: Former Types: Cigarettes Smokeless tobacco: Never Tobacco comments: Pt smoked one pack weekly x 1 year. Vaping Use Vaping status: Never Used Substance Use Topics Alcohol use: Yes Alcohol/week: 12.0 standard drinks of alcohol Types: 7 Glasses of wine, 5 Glasses of Wine (5oz) per week Comment: rately Drug use: Yes Types: Marijuana Comment: gummies as needed MEDICATIONS Current Outpatient Medications Medication Sig sodium chloride 0.9 %, flush, (BD POSIFLUSH) syringe Inject 2-10 mL intravenously as directed. For Echo procedure sodium chloride 0.9 %, flush, (BD POSIFLUSH) syringe Inject 2-10 mL intravenously as directed. For Echo procedure sodium chloride 0.9 %, flush, (BD POSIFLUSH) syringe Inject 2-10 mL intravenously as directed. For Echo procedure hydroCHLOROthiazide 12.5 mg capsule Take 1 capsule by mouth once daily. clopidogrel (PLAVIX) 75 mg tablet 1 tablet by ORAL/FEEDING TUBE route once daily. acetaminophen (TYLENOL) 500 mg tablet Take 1,000 mg by mouth every 6 hours as needed for pain. Garlic 500 mg cap Take 1 capsule by mouth once daily. cyanocobalamin (VITAMIN B-12) 1,000 mcg tab Take 1,000 mcg by mouth once daily. cholecalciferol (VITAMIN D3) 1,000 unit tab tablet Take 1,000 Units by mouth once daily. exemestane (AROMASIN) 25 mg tablet Take 25 mg by mouth once daily. vitamin E, dl,tocopheryl acet, (VITAMIN E, DL, ACETATE,) 450 mg (1,000 unit) cap Take 1 capsule by mouth once daily. calcium carbonate/vitamin D3 (CALCIUM 600 + D ORAL) Take 1 tablet by mouth three times a day. No current facility-administered medications for this visit. ALLERGIES ALLERGIES Allergen Reactions Oxycodone-Acetamino* Rash Tape [Adhesive Tape* Rash PHYSICAL EXAMINATION BP 125/72 Pulse 81 Ht 154.9 cm (5' 1) Wt 77.1 kg (170 lb) BMI 32.12 kg/m General: Well-developed, well-nourished, in no acute distress. HEENT: Normocephalic, atraumatic. Sclerae anicteric. Lungs: Respirations even and unlabored, on room air. Extremities: No edema, cyanosis, or clubbing. Skin: No rash or ecchymoses. Neurological: Awake, alert, oriented to person, place, and time. Speech fluent, no dysarthria. Goodattention and insight into illness. Cranial Nerves: Pupils equal. Extraocular movements intact without nystagmus. Facial sensation and movements normal and symmetric. Tongue midline. Shoulder shrug symmetric. Motor: Normal bulk and tone. Strength 5/5 throughout. No pronator drift or tremor. Sensation: Grossly intact light touch. Coordination: [id number] without dysmetria bilaterally. Gait: Ambulates easily into the office without assistance. LABS Cholesterol: Cholesterol, Total (mg/dL) Date Value 04/20/2024 129 03/20/2018 148 LDL Cholesterol (mg/dL) Date Value 04/20/2024 73 03/20/2018 85 HDL Cholesterol (mg/dL) Date Value 04/20/2024 42 03/20/2018 49 Triglyceride (mg/dL) Date Value 04/20/2024 71 03/20/2018 72 Diabetes: Hemoglobin A1C (%) Date Value 04/20/2024 5.3 03/19/2018 5.1 IMAGING CARDIAC EVENT MONITOR (04/22/2024-05/23/2024): Sinus rhythm, sinus tachycardiac, PVCs. No evidence of atrial fibrillation/flutter reported. US DVT LOWER BILATERAL (04/23/2024): IMPRESSION: No sonographic evidence of deep venous thrombosis in either lower extremity. TRANSTHORACIC ECHOCARDIOGRAM (04/22/2024): CONCLUSIONS: - Technically difficult exam due to respiratory interference. - Exam indication: Stroke - The left ventricle is normal in size. There is no left ventricular hypertrophy. Left ventricular systolic function is normal. EF = 62 5% (2D biplane) Normal left ventricular diastolic function. - The right ventricle is normal in size. Right ventricular systolic function is normal. - There are no significant valvular abnormalities. - There is a patent foramen ovale as detected by agitated saline contrast. - Exam was compared with the prior CC echocardiographic exam performed on 05/24/2020 ([facility]). Positive agitated saline test on today's exam. MRI BRAIN WITHOUT CONTRAST (04/21/2024): IMPRESSION: 1. Small punctate acute to subacute infarct of RIGHT precentral gyrus. No hemorrhage or hemorrhagictransformation. 2. Chronic changes as detailed above. 3. No intracranial metastatic disease. CTA HEAD/NECK (04/19/2024): IMPRESSION: 1. No evidence of significant carotid or vertebral artery stenosis 2. No evidence of acute large vessel occlusion intracranially. No significant intracranial stenosis. 3. Suggestion of a left cerebellar pontine angle soft tissue lesion (versus artifact). This could be more completely characterized with MRI. Patient Entered Questionnaires 07/20/2024 06/02/2024 Health Status Change Since Last Visit Change No change Not applicable, this is my first visit PROMIS/NeuroQoL Score Percentiles 06/02/2024 09/02/2021 Physical Health Physical Function Percentile 38 10 Sleep Percentile 69 Fatigue Percentile 58 18* Pain Interference Percentile 24* 06/02/2024 09/02/2021 PROMIS SOCIAL ROLE SCORE Social Role Satisfaction Percentile 62 31 06/02/2024 Mental Health NeuroQol Cognitive Function Percentile 34 General Self-Efficacy Percentile 46 06/02/2024 09/02/2021 PROMIS Global Health Scale Physical Health Percentile 41 15 Mental Health Percentile 63 43 Percentiles provide an indication of how a patient's score ranks in relation to the [place] general population. > 31st percentile is within normal limits or better * < 31st percentile is at least SD worse than population, which may be clinically relevant < 16th percentile is at least 1 SD worse than population and warrants attention Descriptive Summary for PROMIS Physical Function T-score = 47 (Percentile 38) Little difficulty - Walk more than a mile (1.6 km). Little difficulty - Do chores such as vacuuming or yard work. Depression Screenin06/02/2024 PHQ-9 Score 7 Self-Harm Response Not at all PHQ-9 Scores: PHQ-9 Self-Harm (Item 9) Response: 0 - 9 No to Mild depression 0 - Not at all 10 - 14 Moderate depression 1 - Several Days > 15 Severe depression 2 - More than half the days 3 - Nearly every day 06/02/2024 Sleep Apnea Probability Score Probability (%) 33 (Sleep study not recommended) Stroke Mechanism and Scales Ischemic or TIA: Ischemic Stroke TOAST Mechanism (CCF-MODIFIED): Embolic Stroke of Unknown Source Modified [place] Score: Score: 0 IMPRESSION Subacute right MCA ischemic stroke status post IV thrombolytic administration with resolution of left hemiplegia 04/19/2024. Etiology unknown with concern for central source. Vessel imaging without evidence of significant intracranial or extracranial atherosclerosis. Echo demonstrates PFO of unclear significant, RoPE score 5. Cardiac event monitor unremarkable without evidence of atrial fibrillation. Patent foramen ovale, RoPE score 5 History of breast cancer Hypertension Blood pressure today: 125/72 Hyperlipidemia Most recent LDL: 73 PLAN Continue clopidogrel 75 mg daily Follow-up with cardiology for consideration of PFO closure. BLACK to be rescheduled with anesthesia. Optimization of stroke risk factors Blood pressure management: goal BP less than 130/80, continue antihypertensives as prescribed. Recommend home blood pressure monitoring twice daily. Notify primary care provider of elevated readings. Cholesterol control: goal LDL less than 70 Regular follow up with primary care doctor for health maintenance Assist ensuring blood pressure and cholesterol are at goal Screen and manage diabetes Lifestyle modification -- Establish goals Diet Regular exercise Establish weight goals with primary care doctor Reviewed signs and symptoms warranting emergent neurologic evaluation. Return to clinic in 6 months I spent a total of 22 minutes on the date of service which included preparing to see the patient, [id number] patient care, completing clinical documentation, obtaining and/or reviewing separately obtained history, performing a medically appropriate examination, counseling and educating the patient/family/caregiver, independently interpreting results (not separately reported), and communicating results to the patient/family/caregiver SIGNATURE Ling Harding APRN.[employer] 07/27/2024 documented [facility] Telephone encounter Note * Telephone Encounter - Yazmin Maravilla RN - 07/24/2024 8:53 AM EST Images from the original note were not included. Alondra Hauser; Cecily Yin MD; Smith Lopez MD; Alexis Porter RN (8:28 AM) EO She was scheduled 07/20. I didn't know that it was cancelled. Dr Ayala will have to reorder the TEEplease Cecily Yin MD You; Smith Lopez MD; Alondra Hauser; Alexis Porter RN2 days ago I have added Alondra and Reid here, they can take it further regarding scheduling BLACK with anesthesiaand will contact her with an available date. Thanks Cecily Yin MD, FACP, [facility] Cardiovascular Assembler TesterGuard Lieutenant411 directory assistance operator [facility] Pager: [phone] [facility]12-06-[facility]24 Miscellaneous Notes* Telephone Encounter - Yazmin Maravilla RN - 07/24/2024 8:53 AM EST Images from the original note were not included. Alondra Hauser; Cecily Yin MD; Smith Lopez MD; Alexis Porter RN (8:28 AM) EO She was scheduled 07/20. I didn't know that it was cancelled. Dr Ayala will have to reorder the TEEplease Cecily Yin MD You; Smith Lopez MD; Alondra Hauser; Alexis Porter RN2 days ago I have added Alondra and Reid here, they can take it further regarding scheduling BLACK with anesthesiaand will contact her with an available date. Thanks Cecily Yin MD, FACP, FAC Cardiovascular Assembler TesterGuard Lieutenant411 directory assistance operator [facility] Pager: [phone] * Telephone Encounter - Yazmin Maravilla RN - 07/22/2024 8:13 AM EST Pt asks if there is anything she should be doing to get BLACK with anesthesia scheduled? Yazmin Maravilla RN documented [facility]12[facility] Telephone encounter Note * Telephone Encounter - Yazmin Maravilla RN - 07/22/2024 8:13 AM EST Pt asks if there is anything she should be doing to get BLACK with anesthesia scheduled? Yazmin Maravilla RN [facility]11-20-2024 Telephone encounter Note* Telephone Encounter - Marjan Acosta RN - 07/08/2024 11:25 AM EST MODIFIED JOSE SCORE POST-DISCHARGE Telephone Visit Patient Name: Bo Monteiro Today's date: July 08, 2024 Date of discharge: April 23, 2024 Person giving information: Bo Monteiro. Relationship to patient: Self. Contact information: [phone] Contact attempt: #1 Patient discharge location: Home Patient current location: Home Presentation to ED or readmission after discharge: No Modified [place] Score: 90 days post discharge: 0 = No symptoms at all. Mortality: No oB states that she has no residual effects from the stroke whatsoever. She is driving and independent with all activities of daily living. Signature: Marjan Acosta RN July 08, 2024 11:25 AM [facility]11-20-[facility] Miscellaneous Notes* Telephone Encounter - Marjan Acosta RN - 07/08/2024 11:25 AM EST MODIFIED JOSE SCORE POST-DISCHARGE Telephone Visit Patient Name: Bo Monteiro Today's date: July 08, 2024 Date of discharge: April 23, 2024 Person giving information: Bo Monteiro. Relationship to patient: Self. Contact information: [phone] Contact attempt: #1 Patient discharge location: Home Patient current location: Home Presentation to ED or readmission after discharge: No Modified [place] Score: 90 days post discharge: 0 = No symptoms at all. Mortality: No Bo states that she has no residual effects from the stroke whatsoever. She is driving and independent with all activities of daily living. Signature: Marjan Acosta RN July 08, 2024 11:25 AM documented in this encounterCl[facility]11-12-2024 Telephone encounter Note * Telephone Encounter - Lisa Chau - 06/30/2024 3:44 PM EST Clearance scanned in from surgical associates placed in Dr. Diann hansen to be reviewed. Lisa Chau June 30, 2024 3:44 PM [facility] Miscellaneous Notes* Telephone Encounter - Lisa Chau - 06/30/2024 3:44 PM EST Clearance scanned in from surgical associates placed in Dr. Diann hansen to be reviewed. Lisa Chau June 30, 2024 3:44 PM documented in this encounterCl[facility]11-08-[facility]24 Telephone encounter Note * Telephone Encounter - Alondra Hauser - 06/26/2024 10:49 AM EST Patient is scheduled for a BLACK on 07/20. The hospital will call the day before between 2-5pm with your arrival time. You should not eat or drink after midnight the day before the procedure. You will need a motor coach driver when released from the hospital. You should continue to take medications as prescribed the morning of the procedure with just a sip of water unless otherwise instructed. Spoke with Bo Monteiro on June 26, 2024. Informed of instructions as stated above. Patientverbalized understanding. Alondra Hauser [facility]11-08-2024 Miscellaneous Notes* Telephone Encounter - Alondra Hauser - 06/26/2024 10:49 AM EST Patient is scheduled for a BLACK on 07/20. The hospital will call the day before between 2-5pm with your arrival time. You should not eat or drink after midnight the day before the procedure. You will need a motor coach driver when released from the hospital. You should continue to take medications as prescribed the morning of the procedure with just a sip of water unless otherwise instructed. Spoke with Bo Monteiro on June 26, 2024. Informed of instructions as stated above. Patientverbalized understanding. Alondra Hauser documented in this encounterCl[facility]11-06-2024 [facility] History of Present illness Narrative* Smith Lopez MD - 06/24/2024 10:51 AM EST Chief Complaint: Patient presents with: CARD New Patient Consult: PULLER OUT REF FOR PFO Bo Monteiro is a 68 year old female with a known past medical history of hypertension, hyperlipidemia, questionable irregular heartbeat many years ago which was found to be PVCs, who presented to the hospital 2 months ago with left-sided weakness and found to have a lacunar stroke. On furtherevaluation she had no carotid artery disease, no cerebrovascular disease, and she was put on a rhythm monitor for 30 days which showed no evidence for A-fib. Echocardiogram revealed an atrial level shunt which was presumed to be a PFO with clear bubbles crossing with no provocation. She is here forfurther evaluation of her PFO. She has been on Plavix therapy since her discharge from the hospital, she was treated with IV thrombolytics which resolved all of her signs and symptoms of stroke. CT scan showed no evidence for CVA but the MRI confirmed it. Angiography of the large head and neckvessels show no evidence for atherosclerosis. The patient denies any complaints of chest pain or pressure. He denies any dyspnea, orthopnea, paroxysmal nocturnal dyspnea, syncope or presyncope denies any palpitations or leg swelling. PAST MEDICAL HISTORY Diagnosis Date Arterial ischemic stroke (HCC) Arthritis Breast cancer (HCC) 04/07/2020 Ectopic fetus tube removed HLD (hyperlipidemia) Hypertension Irregular heart beat PFO (patent foramen ovale) PAST SURGICAL HISTORY Procedure Laterality Date BREAST BIOPSY Right 04/05/2020 BREAST LUMPECTOMY HX Right 04/22/2020 SECTION HX x 3 EXCISION OF CYST 1994 Right breast IMPLANT CATH INSERTION (AG) 06/08/2020 KNEE SURGERY HX Left 11/2023 menicus tear TREAT ECTOPIC PREG,NON REMVAL FAMILY HISTORY Problem Relation Age of Onset Hypertension Mother Stroke Mother Emphysema Father other (Lung Cancer) Father Prostate Cancer Brother Hypertension Maternal Grandmother Stroke Maternal Grandmother Stroke Maternal Aunt Social History Tobacco Use Smoking status: Former Types: Cigarettes Smokeless tobacco: Never Tobacco comments: Pt smoked one pack weekly x 1 year. Vaping Use Vaping status: Never Used Substance Use Topics Alcohol use: Yes Alcohol/week: 12.0 standard drinks of alcohol Types: 7 Glasses of wine, 5 Glasses of Wine (5oz) per week Comment: rately Drug use: Yes Types: Marijuana Comment: gummies as needed Current Outpatient Medications Medication Sig hydroCHLOROthiazide 12.5 mg capsule Take 1 capsule by mouth once daily. clopidogrel (PLAVIX) 75 mg tablet 1 tablet by ORAL/FEEDING TUBE route once daily. acetaminophen (TYLENOL) 500 mg tablet Take 1,000 mg by mouth every 6 hours as needed for pain. Garlic 500 mg cap Take 1 capsule by mouth once daily. cyanocobalamin (VITAMIN B-12) 1,000 mcg tab Take 1,000 mcg by mouth once daily. cholecalciferol (VITAMIN D3) 1,000 unit tab tablet Take 1,000 Units by mouth once daily. exemestane (AROMASIN) 25 mg tablet Take 25 mg by mouth once daily. vitamin E, dl,tocopheryl acet, (VITAMIN E, DL, ACETATE,) 450 mg (1,000 unit) cap Take 1 capsule by mouth once daily. calcium carbonate/vitamin D3 (CALCIUM 600 + D ORAL) Take 1 tablet by mouth three times a day. sodium chloride 0.9 %, flush, (BD POSIFLUSH) syringe Inject 2-10 mL intravenously as directed. For Echo procedure No current facility-administered medications for this visit. ALLERGIES Allergen Reactions Oxycodone-Acetamino* Rash Tape [Adhesive Tape* Rash Cardiac Testing MRI brain 04/21/2024: IMPRESSION: 1. Small punctate acute to subacute infarct of RIGHT precentral gyrus. No hemorrhage or hemorrhagic transformation. 2. Chronic changes as detailed above. 3. No intracranial metastatic disease. CTA neck with IV contrast 04/21/2024: IMPRESSION: 1. No evidence of significant carotid or vertebral artery stenosis 2. No evidence of acute large vessel occlusion intracranially. No significant intracranial stenosis. 3. Suggestion of a left cerebellar pontine angle soft tissue lesion (versus artifact). This could be more completely characterized with MRI. Arterial blood flow was measured to detect acute large vessel occlusion by computer aided detection software: Not Performed. Concordance between software and imaging review: Not Applicable. Review of Systems: GENERAL: She has lost about 30 pounds in the past year intentionally HEENT: Negative for frequent or significant headaches NECK: Negative for goiter, pain or significant neck swelling RESPIRATORY: See HPI CARDIOVASCULAR: See HPI MUSCULOSKELETAL: Right sided weakness resolved Physical Examination:: BP 120/80 Pulse 92 Resp 18 Ht 5' 1 (1.55m) Wt 173 lb (78.5kg) SpO2 98% BMI 32.70 kg/(m^2). General Appearance: Well appearing, alert, in no acute distress, well-hydrated, well nourished.. Skin: Skin color, texture, turgor normal, no suspicious rashes or lesions. Head: Normocephalic, no masses, lesions, tenderness or abnormalities. Eyes: Anicteric sclera. Pupils are equally round. Extraocular movements are intact. . Neck: Supple, no adenopathy; thyroid symmetric, normal size, no bruits. Lungs: Lungs clear to auscultation. No wheezing, rhonchi, rales.. Heart: regular rate and rhythm, no murmur, gallop or rub, normal, S1, S2, physiologic split Peripheral Pulses: Normal. ASSESSMENT/PLAN: 1. PFO (patent foramen ovale) - ICD9: 745.5, ICD10: Q21.12 She has an atrial level shunt which is presumed to be a PFO statistically. There are clear bubbles crossing on transthoracic echocardiogram. She has been evaluated for cerebrovascular disease which she does not have, a 30-day monitor was placed which showed no evidence for atrial fibrillation. At this point her stroke appears to be cryptogenic in nature and likely PFO related. She will need a transesophageal echocardiogram for further anatomical characterization of her PFO. She will need planning for PFO closure percutaneously. We will schedule this once all the results are available. Follow-up in 6 months Smith Ayala MD Television Installer of Internal Medicine [facility] of Interventional Cardiology Pony Trimmer of Structural Heart Disease [facility] [address], [address] [place], [place] [address] Facsimile: [phone] Email: [email or web address] documented in this encounterClinton [facility]11-06-2024 Nurse Note* Lashawn Hilliard MA - 06/24/2024 10:09 AM EST Patient denies any cardiac issues or symptoms. [facility]11-[facility] Nurse Note* Lashawn Hilliard MA - 06/24/2024 10:09 AM EST Patient denies any cardiac issues or symptoms. documented in this encounterCl[facility]10-22-2024 Instructions* Patient Instructions* Ling Harding APRN.CNP - 06/09/2024 2:08 PM EDT Images from the original note were not included. Regarding your visit with Nurse Practitioner Ling Harding today at the [facility] we discussed the following: PLAN Stop aspirin Continue clopidogrel (Plavix) daily. Refills sent to pharmacy Follow up with cardiology as planned. Consider long-term event monitor if PFO closure not indicated. Ling Harding CNP [facility] Nurse Practitioner [place], [place] [address] Office: [phone] Appointments: [phone] Stroke Signs and Symptoms: *Stroke is a medical emergency. Know the warning signs of stroke: Sudden numbness or weakness of the face, arm or leg, especially on one side of the body Sudden confusion, trouble speaking, or understanding Sudden trouble seeing in one eye, or both eyes Sudden trouble walking, dizziness, loss of balance, or coordination Sudden severe headache with no known cause *If you, or someone with you, has one or more of these signs, don't delay! Immediately call 911, [facility] emergency medical services (EMS) number so an ambulance can be sent for you. Also, check the time so that you will know when the symptoms first appeared. It is very important to take immediate action, every second counts. Medical treatment may be available if action is taken early enough. ~~~~~~~~~~~~~~~~~~~~~~~~~~~~~~~~~~~~~~~~~~~~~~~~~~~~~~~~~~~~~~~~~~~ General Guidelines to Help Reduce Risk of Recurrent Stroke Blood Pressure Management: Blood Pressure reduction is recommended for both prevention of recurrent stroke and prevention of other vascular events in persons who have had an ischemic stroke or TIA and are beyond the first 24 hours. Several lifestyle modifications have been associated with BP reduction and are a reasonable part of a comprehensive antihypertensive therapy. These modifications include: Salt restriction (less than 2 grams per day) Weight loss Consumption of a diet rich in fruits, vegetables, and low-fat products Regular aerobic physical activity Limited alcohol consumption Goal: Prehypertension (BP less than 130/80 mm Hg): - Perform annual BP screening and lifestyle modifications Hypertension: (BP greater than or equal to 130/80 mm Hg) - Combine medications with above lifestyle modifications to reach your goal blood pressure as defined above. - Monitor your blood pressure at home regularly to ensure you are reaching your goals Diabetes Mellitus: The goal for glycemic control should be individualized based on the risk for adverse events, patient characteristics and preferences, and, for most patients with diabetes, achieving a goal of HbA1c <=7% is recommended to reduce risk for microvascular complications.Treatment of diabetes should include glucose- lowering medications with proven cardiovascular benefit to reduce the risk for future major adverse cardiovascular events (eg, stroke, heart attack) Cholesterol and Lipid Management Statin (rosuvastatin or atorvastatin) therapy with intensive lipid-lowering effects is recommended to reduce risk of stroke and cardiovascular events among patient with ischemic stroke or TIA who have LDL cholesterol > 100 mg/dL, or evidence of atherosclerosis. A goal of LDL cholesterol < 70 mg/dL for stroke or TIA patients on lipid lowering therapy is recommended. Ezetimibe in combination with statin therapy to lower the LDL cholesterol < 70 mg/DL is recommended, if statin therapy alone is insufficient to attain this treatment target. For patients with ischemic stroke at very high risk, already taking maximally tolerated statin and ezetimibe and still have an LDL cholesterol > 70 mg/dL, it is reasonable to treat with a proprotein convertase subtilisin/kexin type 9 (PCSK9) inhibitor to prevent atherosclerotic cardiovascular orcerebrovascular events. In patients with ischemic stroke or TIA, with fasting triglycerides 135 to 499 mg/dL and LDL cholesterol of 41 to 100 mg/dL, on moderate- or high-intensity statin therapy, with HbA1c <10%, and with no history of pancreatitis, atrial fibrillation, or severe heart failure, treatment with icosapentethyl (IPE) 2 g twice a day is reasonable to reduce risk of recurrent stroke Diet: Reduced sodium and increased potassium intake; DASH-style diet rich in fruits and vegetables (https://www.nhlbi.nih.gov/education/axah-eeujyh-vhbq) Consider Mediterranean diet supplemented with nuts Smoking and Tobacco Use: Strongly recommend smoking and tobacco use cessation to reduce risk of stroke. Counseling, nicotine products, and oral smoking cessation medications are effective for helping smokers quit and can be provided if needed. Alcohol Consumption: Patients with ischemic stroke or TIA who drink greater than or equal to 2 alcoholic drinks a day, should eliminate alcohol use or reduce their consumption of alcohol to less than equal to 1 alcohol drink per day to reduce stroke risk Exercise: In patients with stroke or TIA who are capable of physical activity, engaging in at least moderate-intensity aerobic activity for a minimum of 10 minutes 4 times a week or vigorous-intensity aerobic activity for a minimum of 20 minutes twice a week is indicated to lower the risk of recurrent stroke In patients with deficits after stroke that impair their ability to exercise, supervision of an exercise program by a health senior care provider such as a physical therapist or cardiac rehabilitation professional, in addition to routine rehabilitation, can be beneficial for secondary stroke prevention In individuals with stroke or TIA who sit for long periods of uninterrupted time during the day, itmay be reasonable to recommend breaking up sedentary time with intervals as short as 3 minutes of standing or light exercise every 30 minutes for their cardiovascular health Adapted from the [place] [employer]/[place] Stroke Association: 2021 Guideline for the Prevention of Stroke in Patients With Stroke and Transient Ischemic Attack documented in this encounterClinton [facility]10-22-[facility]24 History of Present illness Narrative* Ling Harding APRN.CNP - 06/09/2024 1:30 PM EDT [facility] Established Visit PCP: Loan Dias (Debra) [address] [address] CEREBROVASCULAR HISTORY Bo Monteiro is a 68 year old female who presents for neurologic evaluation following recent hospitalization for acute ischemic stroke (04/19/2024-04/23/2024). Reason for Visit: ischemic stroke Date of Last Event: 04/19/2024 History of Event: HOSPITAL COURSE Patient was admitted for Acute ischemic stroke. 68 y/o female admitted for left sided weakness and was found to have an acute/subacute infarct of the right precentral gyrus. She was s/p TNK in the EDand admitted to the neuro ICU, she was later transferred to the [facility] ECHO was obtained and she was found to have a PFO. DVT ultrasounds were negative for DVT. Neurology is recommending 21 days of aspirin and plavix, followed by plavix monotherapy. She was monitored on telemetry without evidence of atrial fibrillation. She will be discharge with an event monitor. Plan for follow up with neurology and interventional cardiology for evaluation for PFO closure. Of notes she did have some breast thickening and irritation at her recent biopsy site after TNK administration with concern for possible small hematoma, she will follow up with her outpatient breast surgery team on discharge. Antiplatelets/Anticoagulants: Aspirin and Clopidogrel Statins: Atorvastatin Residual Deficits: No residual deficits Current PT/OT/ST: None Current Living Situation: Home alone Current use of a mobility aid for walking/getting around: None Interval History: Presents to clinic today accompanied by her daughter, Left hand numbness noted when picking up her granddaughter, left arm weakness while driving, left leg weak when getting out of the vehicle. Symptoms improved around 4-5 hours after TNK administration. Symptoms recovered without residual effects. Denies focal neurologic symptoms History of breast cancer, right sided lumpectomy and chemotherapy 1 year. Notes she underwent biopsy of left breast lump that was found to be benign Recent intentional weight loss, continues since discharge attributed to water aerobics. On hydrochlorothiazide for high blood pressure Left handedness PAST MEDICAL HISTORY Diagnosis Date Arterial ischemic stroke (HCC) Arthritis Breast cancer (HCC) 04/07/2020 Ectopic fetus tube removed HLD (hyperlipidemia) Hypertension Irregular heart beat PFO (patent foramen ovale) PAST SURGICAL HISTORY Procedure Laterality Date BREAST BIOPSY Right 04/05/2020 BREAST LUMPECTOMY HX Right 04/22/2020 SECTION HX x 3 EXCISION OF CYST 1994 Right breast IMPLANT CATH INSERTION (AG) 06/08/2020 TREAT ECTOPIC PREG,NON REMVAL FAMILY HISTORY Problem Relation Age of Onset Hypertension Mother Stroke Mother Hypertension Maternal Grandmother Stroke Maternal Grandmother Emphysema Father other (Lung Cancer) Father Prostate Cancer Brother Social History Tobacco Use Smoking status: Former Types: Cigarettes Smokeless tobacco: Never Tobacco comments: Pt smoked one pack weekly x 1 year. Vaping Use Vaping status: Never Used Substance Use Topics Alcohol use: Yes Alcohol/week: 12.0 standard drinks of alcohol Types: 5 Glasses of Wine (5oz), 7 Glasses of wine per week Comment: glass of wine every couple of days Drug use: No MEDICATIONS Current Outpatient Medications Medication Sig aspirin 81 mg chewable tablet 1 tablet by ORAL/FEEDING TUBE route once daily for 20 doses. clopidogrel (PLAVIX) 75 mg tablet 1 tablet by ORAL/FEEDING TUBE route once daily. atorvastatin (LIPITOR) 40 mg tablet 1 tablet by ORAL/FEEDING TUBE route daily at bedtime. acetaminophen (TYLENOL) 500 mg tablet Take 1,000 mg by mouth every 6 hours as needed for pain. Garlic 500 mg cap Take 1 capsule by mouth once daily. cyanocobalamin (VITAMIN B-12) 1,000 mcg tab Take 1,000 mcg by mouth once daily. cholecalciferol (VITAMIN D3) 1,000 unit tab tablet Take 1,000 Units by mouth once daily. exemestane (AROMASIN) 25 mg tablet Take 25 mg by mouth once daily. vitamin E, dl,tocopheryl acet, (VITAMIN E, DL, ACETATE,) 450 mg (1,000 unit) cap Take 1 capsule by mouth once daily. calcium carbonate/vitamin D3 (CALCIUM 600 + D ORAL) Take 1 tablet by mouth three times a day. No current facility-administered medications for this visit. ALLERGIES ALLERGIES Allergen Reactions Oxycodone-Acetamino* Rash Tape [Adhesive Tape* Rash PHYSICAL EXAMINATION BP 150/88 Pulse 82 Ht 154.9 cm (5' 1) Wt 76.2 kg (168 lb) BMI 31.74 kg/m General: Well-developed, well-nourished, in no acute distress. HEENT: Normocephalic, atraumatic. Sclerae anicteric. Lungs: Respirations even and unlabored, on room air. Extremities: No edema, cyanosis, or clubbing. Skin: No rash or ecchymoses. Neurological: Awake, alert, oriented to person, place, and time. Speech fluent, no dysarthria. Goodattention and insight into illness. Cranial Nerves: Pupils equal. Extraocular movements intact without nystagmus. Facial sensation and movements normal and symmetric. Tongue midline. Shoulder shrug symmetric. Motor: Normal bulk and tone. Strength 5/5 throughout. No pronator drift or tremor. Sensation: Grossly intact light touch. Coordination: [id number]-[id number] without dysmetria bilaterally. Gait: Ambulates easily into the office without assistance. LABS Cholesterol: Cholesterol, Total (mg/dL) Date Value 04/20/2024 129 03/20/2018 148 LDL Cholesterol (mg/dL) Date Value 04/20/2024 73 03/20/2018 85 HDL Cholesterol (mg/dL) Date Value 04/20/2024 42 03/20/2018 49 Triglyceride (mg/dL) Date Value 04/20/2024 71 03/20/2018 72 Diabetes: Hemoglobin A1C (%) Date Value 04/20/2024 5.3 03/19/2018 5.1 IMAGING CARDIAC EVENT MONITOR (04/22/2024-05/23/2024): Sinus rhythm, sinus tachycardiac, PVCs. No evidence of atrial fibrillation/flutter reported. US DVT LOWER BILATERAL (04/23/2024): IMPRESSION: No sonographic evidence of deep venous thrombosis in either lower extremity. TRANSTHORACIC ECHOCARDIOGRAM (04/22/2024): CONCLUSIONS: - Technically difficult exam due to respiratory interference. - Exam indication: Stroke - The left ventricle is normal in size. There is no left ventricular hypertrophy. Left ventricular systolic function is normal. EF = 62 5% (2D biplane) Normal left ventricular diastolic function. - The right ventricle is normal in size. Right ventricular systolic function is normal. - There are no significant valvular abnormalities. - There is a patent foramen ovale as detected by agitated saline contrast. - Exam was compared with the prior CC echocardiographic exam performed on 05/24/2020 ([facility]). Positive agitated saline test on today's exam. MRI BRAIN WITHOUT CONTRAST (04/21/2024): IMPRESSION: 1. Small punctate acute to subacute infarct of RIGHT precentral gyrus. No hemorrhage or hemorrhagictransformation. 2. Chronic changes as detailed above. 3. No intracranial metastatic disease. CTA HEAD/NECK (04/19/2024): IMPRESSION: 1. No evidence of significant carotid or vertebral artery stenosis 2. No evidence of acute large vessel occlusion intracranially. No significant intracranial stenosis. 3. Suggestion of a left cerebellar pontine angle soft tissue lesion (versus artifact). This could be more completely characterized with MRI. Patient Entered Questionnaires 06/02/2024 Health Status Change Since Last Visit Change Not applicable, this is my first visit PROMIS/NeuroQoL Score Percentiles 06/02/2024 09/02/2021 Physical Health Physical Function Percentile 38 10 Sleep Percentile 69 Fatigue Percentile 58 18* Pain Interference Percentile 24* 06/02/2024 09/02/2021 PROMIS SOCIAL ROLE SCORE Social Role Satisfaction Percentile 62 31 06/02/2024 Mental Health NeuroQol Cognitive Function Percentile 34 General Self-Efficacy Percentile 46 06/02/2024 09/02/2021 PROMIS Global Health Scale Physical Health Percentile 41 15 Mental Health Percentile 63 43 Percentiles provide an indication of how a patient's score ranks in relation to the [place] general population. > 31st percentile is within normal limits or better * < 31st percentile is at least SD worse than population, which may be clinically relevant < 16th percentile is at least 1 SD worse than population and warrants attention Descriptive Summary for PROMIS Physical Function T-score = 47 (Percentile 38) Little difficulty - Walk more than a mile (1.6 km). Little difficulty - Do chores such as vacuuming or yard work. Depression Screenin06/02/2024 PHQ-9 Score 7 Self-Harm Response Not at all PHQ-9 Scores: PHQ-9 Self-Harm (Item 9) Response: 0 - 9 No to Mild depression 0 - Not at all 10 - 14 Moderate depression 1 - Several Days > 15 Severe depression 2 - More than half the days 3 - Nearly every day 06/02/2024 Sleep Apnea Probability Score Probability (%) 33 (Sleep study not recommended) Stroke Mechanism and Scales Ischemic or TIA: Ischemic Stroke TOAST Mechanism (CCF-MODIFIED): Embolic Stroke of Unknown Source Modified [place] Score: Score: 0 IMPRESSION Subacute right MCA ischemic stroke status post IV thrombolytic administration with resolution of left hemiplegia. Etiology unknown with concern for central source. Vessel imaging without evidence of significant intracranial or extracranial atherosclerosis. Echo demonstrates PFO of unclear significant, RoPE score 5. Cardiac event monitor unremarkable without evidence of atrial fibrillation. Patent foramen ovale, RoPE score 5 History of breast cancer Hypertension Blood pressure today: 150/88 Hyperlipidemia Most recent LDL: 73 PLAN Continue clopidogrel 75 mg daily Follow-up with cardiology for consideration of PFO closure versus possible implanted loop recorder for concern of possible paroxysmal atrial fibrillation Optimization of stroke risk factors Blood pressure management: goal BP less than 130/80, continue antihypertensives as prescribed. Recommend home blood pressure monitoring twice daily. Notify primary care provider of elevated readings. Cholesterol control: goal LDL less than 70 Regular follow up with primary care doctor for health maintenance Assist ensuring blood pressure and cholesterol are at goal Screen and manage diabetes Lifestyle modification -- Establish goals Diet Regular exercise Establish weight goals with primary care doctor Reviewed signs and symptoms warranting emergent neurologic evaluation. Return to clinic in 6 weeks I spent a total of 24 minutes on the date of service which included preparing to see the patient, [id number] patient care, completing clinical documentation, obtaining and/or reviewing separately obtained history, performing a medically appropriate examination, counseling and educating the patient/family/caregiver, independently interpreting results (not separately reported), and communicating results to the patient/family/caregiver SIGNATURE Ling Harding APRN.CNP 06/09/2024 [facility]09-11-2024 Telephone encounter Note* Telephone Encounter - Marjan Acosta RN - 04/29/2024 1:16 PM EDT STROKE POST-DISCHARGE CALLBACK Telephone Visit Patient Name: Bo Monteiro Today's date: April 29, 2024 Date of discharge: April 23, 2024 Person giving information: Bo Monteiro. Relationship to patient: self. Contact information: [phone] Contact attempt: #1 Patient discharge location: home I spoke with Bo regarding her recent hospitalization for stroke. I reviewed the following areas of education: 1.Risk factors. I asked the patient about their stroke risk factors, and she knew about the PFO. I discussed that high blood pressure and obesity also increase stroke risk. I discussed the pathophysiology of ischemic stroke. I emphasized the risk for another stroke and the need to be sure these risk factors are controlled as much as possible. I also talked with her about the satellite project site monitor that she is wearing and how that is used to investigate for stroke etiology. 2.Signs and symptoms of stroke. I asked if the patient remembered being taught the symptoms of stroke. She could not list symptoms for me. I reviewed BE FAST and encouraged the use of 911 if new symptoms occur. 3.Medications. Bo is taking aspirin, Plavix and Lipitor. I discussed with her the actions of antiplatelets in stroke prevention. She is taking the Lipitor but is not sure if she wants to continue this as my cholesterol was good. She plans to continue taking it but will discuss with her primary care provider as well as her recycling coordinator. 4.Follow ups. Bo says she is seeing her primary care provider today, and has an appointment soon with her recycling coordinator. She also has an appointment to see Dr. Ayala about her PFO in June. She was not aware that an appointment had been scheduled for her with stroke neurology clinic. I provided her the details of the appointment, which she appreciated. She denies transportation needs. Signature: Marjan Acosta RN April 29, 2024 1:16 PM [facility] Miscellaneous Notes* Telephone Encounter - Marjan Acosta RN - 04/29/2024 1:16 PM EDT STROKE POST-DISCHARGE CALLBACK Telephone Visit Patient Name: Bo Monteiro Today's date: April 29, 2024 Date of discharge: April 23, 2024 Person giving information: Bo Monteiro. Relationship to patient: self. Contact information: [phone] Contact attempt: #1 Patient discharge location: home I spoke with Bo regarding her recent hospitalization for stroke. I reviewed the following areas of education: 1.Risk factors. I asked the patient about their stroke risk factors, and she knew about the PFO. I discussed that high blood pressure and obesity also increase stroke risk. I discussed the pathophysiology of ischemic stroke. I emphasized the risk for another stroke and the need to be sure these risk factors are controlled as much as possible. I also talked with her about the satellite project site monitor that she is wearing and how that is used to investigate for stroke etiology. 2.Signs and symptoms of stroke. I asked if the patient remembered being taught the symptoms of stroke. She could not list symptoms for me. I reviewed BE FAST and encouraged the use of 911 if new symptoms occur. 3.Medications. Bo is taking aspirin, Plavix and Lipitor. I discussed with her the actions of antiplatelets in stroke prevention. She is taking the Lipitor but is not sure if she wants to continue this as my cholesterol was good. She plans to continue taking it but will discuss with her primary care provider as well as her recycling coordinator. 4.Follow ups. Bo says she is seeing her primary care provider today, and has an appointment soon with her recycling coordinator. She also has an appointment to see Dr. Ayala about her PFO in June. She was not aware that an appointment had been scheduled for her with stroke neurology clinic. I provided her the details of the appointment, which she appreciated. She denies transportation needs. Signature: Marjan Acosta RN April 29, 2024 1:16 PM documented in [facility]09[facility]24 [facility]09-03-2024 [facility]09-03-2024 [facility]09-02-2024 [facility]09-02-2024 [facility]09-02-2024 [facility]09-01-2024 Note HNO ID: [id number] Author: CRUZ WILKINS MD Service: ? Author Type: Physician Type: Progress Notes Filed: 04/19/2024 15:50 Note Text: TELESTROKE DOCUMENTATION Name: Bo Monteiro : 1955 Referring Site: [facility] Referring Provider: Dr Garcia Last Known Well (Date/Time): 04/19/24 135 Neurologist Callback (Date/Time): 04/19/24 1510 Chief Complaint: Left sided weakness. HPI: 68 year old female,h/o HTN, breast CA. Head breast biopsy ~10 days ago that was benign. On aspirin. LKW 150pm, trying to reach for door and sudden L arm and leg weakness. In ED, awake alert, initial BP 165/90. NIHSS 4 for LUE and LLE weakness. On my interview, denies bleeding issues, biopsy ~10 days prior. Stroke Risk Factors Hypertension BP: 157/86 NIHSS Telestroke Type - Patient location (ED or Inpatient): ED - Video Site Reported NIHSS: 4 Neurologist Performed Total Score: 4 Arrival Date Telestroke Site: 04/19/24 Arrival Time Telestroke Site: 150 NIHSS Performed Date: 04/19/24 NIHSS Performed Time: 1512 LOC: 0 LOC Questions: 0 LOC Commands: 0 Best Gaze: 0 Visual: 0 Facial Palsy: 0 Motor Left Arm: 2 Motor Right Arm: 0 Motor Left Le Motor Right Le Limb Ataxia: 0 Sensory: 0 Best Language: 0 Dysarthria: 0 Extinction and Inattention: 0 Labs Glucose: 99 Platelets: 321 WBC: 8.62 Hemoglobin: 14.[address] Imaging reviewed, NO acute infarct/hemorrhage seen CTA Imaging reviewed, NO large vessel occlusion or severe stenosis seen Summary Suspected ACUTE ischemic stroke IV Thrombolysis Candidate Window: Last Known Well between 0-4.5 hours IV Thrombolysis Exclusion Criteria: Negative for ALL Exclusion Criteria IV Thrombolysis Additional Exclusion Criteria: Negative for ALL Additional Exclusion Criteria IV Thrombolysis Recommended: Yes, I have explained the reason(s) why I believe the patient is having an acute stroke that would benefit from IV Thrombolysis. I have explained the risks, benefits, and alternatives with the patient and/or the family members. All questions answered. Agreement to proceed with IV Thrombolysis treatment given by: Patient IV Thrombolysis Medication Given: Tenecteplase IV Thrombolysis Bolus (Date) 04/19/24 IV Thrombolysis Bolus (Time) 1521 LKW to IV Thrombolysis (minutes) 91 DOOR to IV Thrombolysis (minutes) 20 Neuro Callback to IV Thrombolysis (minutes) 11 NIHSS performed to IV Thrombolysis (minutes) 8 Potential Candidate for Endovascular Therapy: No - Negative for evidence of large vessel occlusion Disposition/Billing (Physician is not in the same physical location as the patient) The patient will remain at the referring institution for further evaluation and management Video: Minutes spent directly evaluating the patient via teleconferencing, reviewing pertinent diagnostic data, and coordinating care : 30 Video: Case complexity: Moderate More than 50 percent of the encounter was spent on coordinating care of the patient during a telestroke. Thank you for contacting the [facility]. I appreciate the opportunity for allowing me to participate in Bo Monteiro's care. Please feel free to contact me and/or the [facility] at any time if you have any further questions or need additional assistance. Cruz Wilkins MD April 19, 2024 3:28 [facility]09-01-2024 History of Present illness Narrative* Cruz Wilkins MD - 04/19/2024 3:10 PM EDT TELESTROKE DOCUMENTATION Name: Bo Monteiro : 1955 Referring Site: [facility] Referring Provider: Dr Jose Last Known Well (Date/Time): 04/19/24 1350 Neurologist Callback (Date/Time): 04/19/24 1510 Chief Complaint: Left sided weakness. HPI: 68 year old female,h/o HTN, breast CA. Head breast biopsy ~10 days ago that was benign. On aspirin. LKW 150pm, trying to reach for door and sudden L arm and leg weakness. In ED, awake alert, initial BP 165/90. NIHSS 4 for LUE and LLE weakness. On my interview, denies bleeding issues, biopsy ~10 days prior. Stroke Risk Factors Hypertension BP: 157/86 NIHSS Telestroke Type - Patient location (ED or Inpatient): ED - Video Site Reported NIHSS: 4 Neurologist Performed Total Score: 4 Arrival Date Telestroke Site: 04/19/24 Arrival Time Telestroke Site: 1501 NIHSS Performed Date: 04/19/24 NIHSS Performed Time: 151 LOC: 0 LOC Questions: 0 LOC Commands: 0 Best Gaze: 0 Visual: 0 Facial Palsy: 0 Motor Left Arm: 2 Motor Right Arm: 0 Motor Left Le Motor Right Le Limb Ataxia: 0 Sensory: 0 Best Language: 0 Dysarthria: 0 Extinction and Inattention: 0 Labs Glucose: 99 Platelets: 321 WBC: 8.62 Hemoglobin: 14.[address] Imaging reviewed, NO acute infarct/hemorrhage seen CTA Imaging reviewed, NO large vessel occlusion or severe stenosis seen Summary Suspected ACUTE ischemic stroke IV Thrombolysis Candidate Window: Last Known Well between 0-4.5 hours IV Thrombolysis Exclusion Criteria: Negative for ALL Exclusion Criteria IV Thrombolysis Additional Exclusion Criteria: Negative for ALL Additional Exclusion Criteria IV Thrombolysis Recommended: Yes, I have explained the reason(s) why I believe the patient is having an acute stroke that would benefit from IV Thrombolysis. I have explained the risks, benefits, andalternatives with the patient and/or the family members. All questions answered. Agreement to proceed with IV Thrombolysis treatment given by: Patient IV Thrombolysis Medication Given: Tenecteplase IV Thrombolysis Bolus (Date) 04/19/24 IV Thrombolysis Bolus (Time) 1521 LKW to IV Thrombolysis (minutes) 91 DOOR to IV Thrombolysis (minutes) 20 Neuro Callback to IV Thrombolysis (minutes) 11 NIHSS performed to IV Thrombolysis (minutes) 8 Potential Candidate for Endovascular Therapy: No - Negative for evidence of large vessel occlusion Disposition/Billing (Physician is not in the same physical location as the patient) The patient will remain at the referring institution for further evaluation and management Video: Minutes spent directly evaluating the patient via teleconferencing, reviewing pertinent diagnostic data, and coordinating care : 30 Video: Case complexity: Moderate More than 50 percent of the encounter was spent on coordinating care of the patient during a telestroke. Thank you for contacting the [facility]. I appreciate the opportunity for allowing me to participate in Bo Monteiro's care. Please feel free to contact me and/or the [facility] at any time if you have any further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 Type: Progress Notes Filed: 04/21/2021 5:17 PM Note Text: SUBJECTIVE Patient is still on 6 L of nasal cannula oxygen No chest pain or palpitations Body aches is better Appetite is still not good She has some nasal inflammation due to oxygen No diarrhea OBJECTIVE Blood pressure 115/75, pulse 73, temperature 36.7 ?C (98.1 ?F), temperature source Oral, resp. rate 18, height 154.9 cm (5' 1), weight 90.2 kg (198 lb 13.7 oz), SpO2 97 %. General: No distress lying in bed Mouth: Moist Legs: No peripheral edema Lungs: Reasonably clear anteriorly and posteriorly Cardiovascular: Regular rate and rhythm Abdomen: Soft nontender Neuro: Awake alert well oriented INVESTIGATIONS (most recent) CMP: Glucose 94 04/21/2021 BUN 20 04/21/2021 Creatinine 0.68 04/21/2021 Sodium 139 04/21/2021 Potassium 3.8 04/21/2021 Chloride 106 04/21/2021 CO2 26 04/21/2021 Protein, Total 6.1 04/14/2021 Albumin 3.4 04/21/2021 Calcium, Total 8.8 04/21/2021 Alkaline Phosphatase 62 04/14/2021 Bilirubin, Total 0.3 04/14/2021 AST 35 04/14/2021 ALT 25 04/14/2021 Hemoglobin (g/dL) Date Value 04/21/2021 12.6 Hematocrit (%) Date Value 04/21/2021 37.9 WBC (k/uL) Date Value 04/21/2021 9.21 Platelet Count (k/uL) Date Value 04/21/2021 472 ASSESSMENT 1. ?Viral pneumonia 2. ?Acute respiratory failure with hypoxia 3. ?COVID-19 infection 4. ?Hypertension 5. ?Mild protein calorie malnutrition 6. ?Personal history of breast cancer, diagnosed exactly 1 year ago, on exemestane ? PLAN PT and OT recommend [facility] facility We are waiting to try and see if he can bring down oxygen requirements and subsequently will consider [facility] facility She is finishing her Decadron course Reviewed all her medications Discussed with the nursing staff We will make attempts to wean down oxygen Plan of care discussed with: Provider, RN, Patient. This note was partially generated using a voice recognition software system and there may be some incorrect words, phrases, spellings or punctuation that were not noted in review before signing.[facility] 04-20-2021 NoteHNO ID: [id number] Author: Ty Pulido MD Service: General Internal Medicine Author Type: Physician Type: Progress Notes Filed: 04/20/2021 9:55 PM Note Text: SUBJECTIVE Patient transferred to a regular floor She is still on 6 L nasal cannula oxygen She still has a dry cough Body aches a little better Appetite is a little better She still gets out of breath on minimal exertion OBJECTIVE Blood pressure 112/57, pulse 69, temperature 36.9 ?C (98.5 ?F), temperature source Oral, resp. rate 20, height 154.9 cm (5' 1), weight 90.2 kg (198 lb 13.7 oz), SpO2 94 %. General: Mild obesity, no distress but speaks in relatively short sentences Mouth: Moist Neck: Supple, no clear JVD lymph nodes or thyromegaly Lower extremity: No peripheral edema, no calf tenderness Lungs: Relatively clear anteriorly and posteriorly Cardiovascular: Regular rate and rhythm Abdomen: Soft nontender nondistended Neuro: Awake alert oriented INVESTIGATIONS (most recent) CMP: Glucose 85 04/20/2021 BUN 18 04/20/2021 Creatinine 0.80 04/20/2021 Sodium 139 04/20/2021 Potassium 3.8 04/20/2021 Chloride 105 04/20/2021 CO2 25 04/20/2021 Protein, Total 6.1 04/14/2021 Albumin 3.2 04/20/2021 Calcium, Total 8.7 04/20/2021 Alkaline Phosphatase 62 04/14/2021 Bilirubin, Total 0.3 04/14/2021 AST 35 04/14/2021 ALT 25 04/14/2021 Hemoglobin (g/dL) Date Value 04/20/2021 12.0 Hematocrit (%) Date Value 04/20/2021 35.8 WBC (k/uL) Date Value 04/20/2021 7.32 Platelet Count (k/uL) Date Value 04/20/2021 442 ASSESSMENT 1. Viral pneumonia 2. Acute respiratory failure with hypoxia 3. COVID-19 infection 4. Hypertension 5. Mild protein calorie malnutrition 6. Personal history of breast cancer, diagnosed exactly 1 year ago, on exemestane PLAN We will continue to make attempts to wean down the oxygen PT and OT Reviewed all her medications Very likely patient will need rehab Discussed plans with the patient Plan of care discussed with: Provider, RN, Patient. This note was partially generated using a voice recognition software system and there may be some incorrect words, phrases, spellings or punctuation that were not noted in review before signing.[facility] 04-20-2021 NoteHNO ID: [id number] Author: Raymond Moscoso MD Service: Pulmonary Disease Author Type: Physician Type: Progress Notes Filed: 04/20/2021 9:51 AM Note Text: . Critical Care Consult Follow-up Note Patient Name: Bo Monteiro Date: April 20, 2021 Subjective: No issues overnight. MEDICATIONS: Current Facility-Administered Medications Medication Dose Route Frequency - ondansetron 4 mg tab(s) (ZOFRAN) 4 mg ORAL q 6 H PRN Or - ondansetron (PF) 4 mg injection (ZOFRAN) 4 mg INTRAVENOUS q 6 H PRN - docusate sodium 100 mg cap(s) (COLACE) 100 mg ORAL BID PRN - magnesium hydroxide 400 mg/5 mL 30 mL (MOM) 30 mL ORAL DAILY PRN - enoxaparin 40 mg injection (LOVENOX) 40 mg SUBCUTANEOUS q 24 HR - NaCl 0.9% iv flush bag 20 mL INTRAVENOUS PRN - sodium chloride 0.9 % (flush) 3-5 mL (BD POSIFLUSH) 3-5 mL INTRAVENOUS q 12 H - sodium chloride 0.9 % (flush) 10 mL (BD POSIFLUSH) 10 mL INTRAVENOUS q 12 H - sodium chloride 0.9 % (flush) 20 mL (BD POSIFLUSH) 20 mL INTRAVENOUS PRN - heparin 100 unit/mL 500 Units injection 5 mL INTRAVENOUS PRN - exemestane 25 mg tab(s) (AROMASIN) 25 mg ORAL DAILY - acetaminophen 1,000 mg tab(s) (TYLENOL) 1,000 mg ORAL q 8 H PRN - albuterol HFA 90 mcg/actuation 2 Puff (PROVENTIL HFA, VENTOLIN HFA) 2 Puff INHALATION Q6H WHILE AWAKE - albuterol HFA 90 mcg/actuation 2 Puff (PROVENTIL HFA, VENTOLIN HFA) 2 Puff INHALATION q 4 H PRN - guaiFENesin-dextromethorphan 100-10 mg/5 mL 10 mL oral liquid (ROBITUSSIN DM) 10 mL ORAL q 4 H PRN - benzonatate 100 mg cap(s) (TESSALON PERLE) 100 mg ORAL TID - traMADol 50 mg tab(s) (ULTRAM) 50 mg ORAL q 6 H PRN - iv contrast (radiology procedure) INTRAVENOUS DIRECTED PRN - calcium carbonate 750 mg chewable tab(s) (TUMS) 750 mg ORAL BID PRN - ALPRAZolam 0.125 mg tab(s) (XANAX) 0.125 mg ORAL TID PRN - pantoprazole DR 40 mg tab(s) (PROTONIX) 40 mg ORAL DAILY (6 AM) - phenol 1 Regina (CHLORASEPTIC) 1 Regina MUCOUS MEMBRANE (TOPICAL MOUTH AND THROAT) q 2 H PRN PHYSICAL EXAM: 04/20/21 0500 04/20/21 0600 04/20/21 0728 04/20/21 0800 BP: 119/86 Pulse: (!) 55 60 62 Resp: 16 16 16 Temp: 36.8 ?C (98.2 ?F) TempSrc: Oral SpO2: 97% 95% 95% Weight: Height: on 6L General- nad Eyes- eomi, perrl ENT- mmm, oropharynx clear CV- RRR Resp- clear to auscultation bilaterally anteriorly, shallow breaths Abd- +bs, soft, nt, nd Ext- no clubbing, cyanosis, or edema Neuro- moving all extremities, no focal deficits Psych- appropriate mood and affect I/O: Intake/Output Summary (Last 24 hours) at 04/20/2021 0942 Last data filed at 04/20/2021 0600 Gross per 24 hour Intake 970 ml Output 850 ml Net 120 ml Labs / Imaging / Diagnostic Studies: Recent Labs 04/20/21 0410 04/19/21 0519 04/18/21 0507 WBC 7.32 9.24 8.40 HB 12.0 12.2 12.2 HCT 35.8* 36.3 35.7* PLT 442* 465* 451* NA 139 139 141 K 3.8 3.9 4.1 CHLOR 105 105 105 CO2 25 24 27 CREAT 0.80 0.78 0.80 P 3.0 2.8 2.6 BUN 18 17 17 GLUC 85 74 87 ALB 3.2* 3.3* 3.3* CA 8.7 8.8 8.8 CRP -- 3.7* -- ASSESSMENT ? 1. Acute hypoxic respiratory failure - slowly improving 2. COVID19 pneumonia 3. Possible superimposed bacterial pneumonia - completed zosyn 04/18 4. Hx invasive ductal breast carcinoma (2019) - on chemo 5. Hypertension ? RECOMMENDATIONS ? ? Wean o2 for sats > 88%, will drop to 4L ? remdesivir completed, on decadron through tomorrow ? PT/OT ? Out of bed to chair ? Stable for transfer to [facility], Dr Pulido to assume care on the floor ? Updated daughter Travis on the phone Raymond Moscoso MD April 20, 2021 9:50 [facility]09-01-2021 NoteHNO ID: [id number] Author: Raymond Moscoso MD Service: Pulmonary Disease Author Type: Physician Type: Progress Notes Filed: 04/19/2021 12:06 PM Note Text: . Critical Care Consult Follow-up Note Patient Name: Bo Monteiro Date: April 19, 2021 Subjective: Breathing a little better. MEDICATIONS: Current Facility-Administered Medications Medication Dose Route Frequency - ondansetron 4 mg tab(s) (ZOFRAN) 4 mg ORAL q 6 H PRN Or - ondansetron (PF) 4 mg injection (ZOFRAN) 4 mg INTRAVENOUS q 6 H PRN - docusate sodium 100 mg cap(s) (COLACE) 100 mg ORAL BID PRN - magnesium hydroxide 400 mg/5 mL 30 mL (MOM) 30 mL ORAL DAILY PRN - enoxaparin 40 mg injection (LOVENOX) 40 mg SUBCUTANEOUS q 24 HR - NaCl 0.9% iv flush bag 20 mL INTRAVENOUS PRN - sodium chloride 0.9 % (flush) 3-5 mL (BD POSIFLUSH) 3-5 mL INTRAVENOUS q 12 H - sodium chloride 0.9 % (flush) 10 mL (BD POSIFLUSH) 10 mL INTRAVENOUS q 12 H - sodium chloride 0.9 % (flush) 20 mL (BD POSIFLUSH) 20 mL INTRAVENOUS PRN - heparin 100 unit/mL 500 Units injection 5 mL INTRAVENOUS PRN - exemestane 25 mg tab(s) (AROMASIN) 25 mg ORAL DAILY - acetaminophen 1,000 mg tab(s) (TYLENOL) 1,000 mg ORAL q 8 H PRN - albuterol HFA 90 mcg/actuation 2 Puff (PROVENTIL HFA, VENTOLIN HFA) 2 Puff INHALATION Q6H WHILE AWAKE - albuterol HFA 90 mcg/actuation 2 Puff (PROVENTIL HFA, VENTOLIN HFA) 2 Puff INHALATION q 4 H PRN - guaiFENesin-dextromethorphan 100-10 mg/5 mL 10 mL oral liquid (ROBITUSSIN DM) 10 mL ORAL q 4 H PRN - benzonatate 100 mg cap(s) (TESSALON PERLE) 100 mg ORAL TID - traMADol 50 mg tab(s) (ULTRAM) 50 mg ORAL q 6 H PRN - dexAMETHasone 6 mg (DECADRON) 6 mg ORAL DAILY WITH BREAKFAST - ALPRAZolam 0.125 mg tab(s) (XANAX) 0.125 mg ORAL BID PRN - iv contrast (radiology procedure) INTRAVENOUS DIRECTED PRN - calcium carbonate 750 mg chewable tab(s) (TUMS) 750 mg ORAL BID PRN PHYSICAL EXAM: 04/18/21 2000 04/19/21 0000 04/19/21 0600 04/19/21 0725 BP: 106/69 106/65 134/76 Pulse: 73 (!) 59 67 76 Resp: 13 19 13 18 Temp: 36.7 ?C (98.1 ?F) 36.7 ?C (98 ?F) TempSrc: Oral Oral SpO2: 93% 93% 95% 92% Weight: Height: on 8L General- nad Eyes- eomi, perrl ENT- mmm, oropharynx clear CV- RRR Resp- clear to auscultation bilaterally anteriorly, shallow breaths Abd- +bs, soft, nt, nd Ext- no clubbing, cyanosis, or edema Neuro- moving all extremities, no focal deficits Psych- appropriate mood and affect I/O: Intake/Output Summary (Last 24 hours) at 04/19/2021 1002 Last data filed at 04/18/2021 1826 Gross per 24 hour Intake ? Output 1000 ml Net -1000 ml Labs / Imaging / Diagnostic Studies: Recent Labs 04/19/21 0519 04/18/21 0507 04/17/21 0518 WBC 9.24 8.40 7.82 HB 12.2 12.2 12.2 HCT 36.3 35.7* 36.9 PLT 465* 451* 381 NA 139 141 137 K 3.9 4.1 3.5* CHLOR 105 105 102 CO2 24 27 27 CREAT 0.78 0.80 0.89 P 2.8 2.6 2.4* BUN 17 17 15 GLUC 74 87 83 ALB 3.3* 3.3* 3.2* CA 8.8 8.8 8.8 CRP 3.7* -- 7.0* ASSESSMENT ? 1. Acute hypoxic respiratory failure - improving 2. COVID19 pneumonia 3. Possible superimposed bacterial pneumonia - completed zosyn 04/18 4. Hx invasive ductal breast carcinoma (2019) - on chemo 5. Hypertension ? RECOMMENDATIONS ? ? Wean o2 for sats > 88%, will drop to 6L ? remdesivir completed, on decadron through 04/21 ? To chair, out of bed as able, PT/OT ? Stable for transfer to [facility], will consult Dr Pulido to assume care. We will see her tomorrow on the floor ? Updated daughter Travis on the phone Raymond Moscoso MD April 19, 2021 10:06 [facility]08-31-2021 NoteHNO ID: [id number] Author: Raymond Moscoso MD Service: Pulmonary Disease Author Type: Physician Type: Progress Notes Filed: 04/18/2021 9:20 AM Note Text: . Critical Care Consult Follow-up Note Patient Name: Bo C Mennell Date: April 18, 2021 Subjective: No issues overnight. MEDICATIONS: Current Facility-Administered Medications Medication Dose Route Frequency - ondansetron 4 mg tab(s) (ZOFRAN) 4 mg ORAL q 6 H PRN Or - ondansetron (PF) 4 mg injection (ZOFRAN) 4 mg INTRAVENOUS q 6 H PRN - docusate sodium 100 mg cap(s) (COLACE) 100 mg ORAL BID PRN - magnesium hydroxide 400 mg/5 mL 30 mL (MOM) 30 mL ORAL DAILY PRN - enoxaparin 40 mg injection (LOVENOX) 40 mg SUBCUTANEOUS q 24 HR - NaCl 0.9% iv flush bag 20 mL INTRAVENOUS PRN - sodium chloride 0.9 % (flush) 3-5 mL (BD POSIFLUSH) 3-5 mL INTRAVENOUS q 12 H - sodium chloride 0.9 % (flush) 10 mL (BD POSIFLUSH) 10 mL INTRAVENOUS q 12 H - sodium chloride 0.9 % (flush) 20 mL (BD POSIFLUSH) 20 mL INTRAVENOUS PRN - heparin 100 unit/mL 500 Units injection 5 mL INTRAVENOUS PRN - exemestane 25 mg tab(s) (AROMASIN) 25 mg ORAL DAILY - acetaminophen 1,000 mg tab(s) (TYLENOL) 1,000 mg ORAL q 8 H PRN - albuterol HFA 90 mcg/actuation 2 Puff (PROVENTIL HFA, VENTOLIN HFA) 2 Puff INHALATION Q6H WHILE AWAKE - albuterol HFA 90 mcg/actuation 2 Puff (PROVENTIL HFA, VENTOLIN HFA) 2 Puff INHALATION q 4 H PRN - guaiFENesin-dextromethorphan 100-10 mg/5 mL 10 mL oral liquid (ROBITUSSIN DM) 10 mL ORAL q 4 H PRN - benzonatate 100 mg cap(s) (TESSALON PERLE) 100 mg ORAL TID - traMADol 50 mg tab(s) (ULTRAM) 50 mg ORAL q 6 H PRN - dexAMETHasone 6 mg (DECADRON) 6 mg ORAL DAILY WITH BREAKFAST - ALPRAZolam 0.125 mg tab(s) (XANAX) 0.125 mg ORAL BID PRN - iv contrast (radiology procedure) INTRAVENOUS DIRECTED PRN - calcium carbonate 750 mg chewable tab(s) (TUMS) 750 mg ORAL BID PRN PHYSICAL EXAM: 04/18/21 0400 04/18/21 0500 04/18/21 0600 04/18/21 0746 BP: 116/67 132/82 126/77 Pulse: (!) 53 75 (!) 57 72 Resp: 15 23 16 14 Temp: 36.7 ?C (98 ?F) TempSrc: Oral SpO2: 96% 90% 96% 94% Weight: Height: on 13L General- no distress at rest Eyes- eomi, perrl ENT- mmm, oropharynx clear CV- RRR Resp- clear to auscultation bilaterally anteriorly, shallow breaths Abd- +bs, soft, nt, nd Ext- no clubbing, cyanosis, or edema Neuro- moving all extremities, no focal deficits Psych- appropriate mood and affect I/O: Intake/Output Summary (Last 24 hours) at 04/18/2021 0917 Last data filed at 04/18/2021 0600 Gross per 24 hour Intake 1210 ml Output 700 ml Net 510 ml Labs / Imaging / Diagnostic Studies: Recent Labs 04/18/21 0507 04/17/21 0518 04/16/21 0410 WBC 8.40 7.82 7.31 HB 12.2 12.2 12.0 HCT 35.7* 36.9 35.8* PLT 451* 381 363 NA 141 137 139 K 4.1 3.5* 4.3 CHLOR 105 102 104 CO2 27 27 26 CREAT 0.80 0.89 0.89 P 2.6 2.4* 2.9 BUN 17 15 13 GLUC 87 83 80 ALB 3.3* 3.2* 3.1* CA 8.8 8.8 8.5 CRP -- 7.0* -- ASSESSMENT ? 1. Acute hypoxic respiratory failure - very slowly improving 2. COVID19 pneumonia 3. Possible superimposed bacterial pneumonia - completed zosyn 04/18 4. Hx invasive ductal breast carcinoma (2019) - on chemo 5. Hypertension ? RECOMMENDATIONS ? ? Wean o2 for sats > 88%, will drop to 10L ? remdesivir completed, on decadron through 04/21 ? To chair, out of bed as able ? Continue ICU monitoring ? Updated daughter Travis on the phone Critical Care Time 33 minutes Raymond Moscoso MD April 18, 2021 9:19 [facility] NoteHNO ID: [id number] Author: Dina Manley APRN.[facility] Service: ? Author Type: Nurse Practitioner Type: Progress Notes Filed: 04/17/2021 1:54 PM Note Text: Clinical Indicators: 04/17/21 Nutrition Therapy Notes Nutrition Assessment: Recommended Malnutrition Diagnosis: Mild Protein-Calorie Malnutrition In the context of: Acute Illness or Injury Based on: Insufficient Energy Intake HPI: 65 year old F admitted for SOB 2/2 COVID PNA. 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 Intake History: Nutrition Intake Prior to Admission: Greater than 75% estimated energy needs greater than or equal to 3 months Current Intake: Less than 75% estimated energy needs Over: 7 days Physical Exam: Subcutaneous fat loss: No fat loss Muscle loss: No muscle loss Potential micronutrient deficiency: No deficiency identified Edema/Ascites: Generalized GI Symptoms: Anorexia; Diarrhea Functional Status: Unable to assess Potential Signs of Inflammation: Hyperglycemia; High CRP; Hypoalbuminemia; Critically ill; Imaging studies; Microbiologic cultures 04/11/21 Diet Order: Heart Healthy 04/17/21 Diet Supplement Order: Ensure clear and Zone bar oatmeal chocolate chunck 04/15/21 Nursing Doc Flowsheet IANDO % Meals Taken: 5% to 25% Please clarify the Patient's Nutritional Status Such As: Mild Protein Calorie Malnutrition Present on Admission x Mild Protein Calorie Malnutrition Not Present on Admission Clinically Unable to Determine Other, please specify Dina Manley APRN.[facility]08-30-2021 NoteHNO ID: [id number] Author: Raymond Moscoso MD Service: Pulmonary Disease Author Type: Physician Type: Progress Notes Filed: 04/17/2021 9:43 AM Note Text: . Critical Care Consult Follow-up Note Patient Name: Bo Monteiro Date: April 17, 2021 Subjective: Still anxious but no acute issues overnight. Desaturated on 12L. Feels like she can stake slightly deeper breaths. MEDICATIONS: Current Facility-Administered Medications Medication Dose Route Frequency - ondansetron 4 mg tab(s) (ZOFRAN) 4 mg ORAL q 6 H PRN Or - ondansetron (PF) 4 mg injection (ZOFRAN) 4 mg INTRAVENOUS q 6 H PRN - docusate sodium 100 mg cap(s) (COLACE) 100 mg ORAL BID PRN - magnesium hydroxide 400 mg/5 mL 30 mL (MOM) 30 mL ORAL DAILY PRN - enoxaparin 40 mg injection (LOVENOX) 40 mg SUBCUTANEOUS q 24 HR - NaCl 0.9% iv flush bag 20 mL INTRAVENOUS PRN - sodium chloride 0.9 % (flush) 3-5 mL (BD POSIFLUSH) 3-5 mL INTRAVENOUS q 12 H - sodium chloride 0.9 % (flush) 10 mL (BD POSIFLUSH) 10 mL INTRAVENOUS q 12 H - sodium chloride 0.9 % (flush) 20 mL (BD POSIFLUSH) 20 mL INTRAVENOUS PRN - heparin 100 unit/mL 500 Units injection 5 mL INTRAVENOUS PRN - exemestane 25 mg tab(s) (AROMASIN) 25 mg ORAL DAILY - acetaminophen 1,000 mg tab(s) (TYLENOL) 1,000 mg ORAL q 8 H PRN - piperacillin-tazobactam iv piggyback 3.375 g in dextrose (iso-osmotic) 50 mL (ZOSYN) 3.375 g INTRAVENOUS q 6 H - albuterol HFA 90 mcg/actuation 2 Puff (PROVENTIL HFA, VENTOLIN HFA) 2 Puff INHALATION Q6H WHILE AWAKE - albuterol HFA 90 mcg/actuation 2 Puff (PROVENTIL HFA, VENTOLIN HFA) 2 Puff INHALATION q 4 H PRN - guaiFENesin-dextromethorphan 100-10 mg/5 mL 10 mL oral liquid (ROBITUSSIN DM) 10 mL ORAL q 4 H PRN - benzonatate 100 mg cap(s) (TESSALON PERLE) 100 mg ORAL TID - traMADol 50 mg tab(s) (ULTRAM) 50 mg ORAL q 6 H PRN - dexAMETHasone 6 mg (DECADRON) 6 mg ORAL DAILY WITH BREAKFAST - ALPRAZolam 0.125 mg tab(s) (XANAX) 0.125 mg ORAL BID PRN - iv contrast (radiology procedure) INTRAVENOUS DIRECTED PRN PHYSICAL EXAM: 04/17/21 0500 04/17/21 0600 04/17/21 0800 04/17/21 0841 BP: 130/68 118/68 Pulse: (!) 59 (!) 53 (!) 59 Resp: 18 17 18 Temp: 36.9 ?C (98.4 ?F) TempSrc: Oral SpO2: 98% 98% 98% Weight: Height: on 13L General- nad, comfortable Eyes- eomi, perrl ENT- mmm, oropharynx clear CV- RRR Resp- clear to auscultation bilaterally anteriorly Abd- +bs, soft, nt, nd Ext- no clubbing, cyanosis, or edema Neuro- moving all extremities, no focal deficits Psych- appropriate mood and affect I/O: Intake/Output Summary (Last 24 hours) at 04/17/2021 09 Last data filed at 04/16/20211999 Gross per 24 hour Intake 750 ml Output 1500 ml Net -750 ml Labs / Imaging / Diagnostic Studies: Recent Labs 04/17/21 0518 04/16/21 0410 04/15/21 0635 WBC 7.82 7.31 -- HB 12.2 12.0 -- HCT 36.9 35.8* -- PLT 381 363 -- NA 137 139 -- K 3.5* 4.3 -- CHLOR 102 104 -- CO2 27 26 -- CREAT 0.89 0.89 -- P 2.4* 2.9 -- BUN 15 13 -- GLUC 83 80 -- ALB 3.2* 3.1* -- CA 8.8 8.5 -- CRP 7.0* -- 5.1* ASSESSMENT ? 1. Acute hypoxic respiratory failure 2. COVID19 pneumonia 3. Possible superimposed bacterial pneumonia 4. Hx invasive ductal breast carcinoma (2019) - on chemo 5. Hypertension ? RECOMMENDATIONS ? ? Wean o2 for sats > 88% ? remdesivir completed, on decadron. ? CRP < 7.5, not a candidate for anti IL-6 therapy and not intubtaed ? Zosyn per ID ? Will update daughter Travis on the phone Critical Care Time 30 minutes Raymond Moscoso MD April 17, 2021 9:27 [facility]08-29-2021 NoteHNO ID: [id number] Author: Ramirez Groves MD Service: Critical Care Author Type: Physician Type: Progress Notes Filed: 04/16/2021 12:27 PM Note Text: . Pulmonary AND Critical Care Medicine Follow-up Note Patient Name: Bo Monteiro SERVICE DATE: 04/16/2021 ASSESSMENT 1. Acute hypoxic respiratory failure 2. COVID19 pneumonia 3. Possible superimposed bacterial pneumonia 4. Hx invasive ductal breast carcinoma (2019) 5. Hypertension RECOMMENDATIONS ? Still had periods of significant desaturation; fio2 increased to 15L ? Gets coughing fits then desaturates ? Cough meds (tessalon / robitussin DM) ? Allergy to codeine ? Leg dopplers negative; ? dw pt daughter (Travis) - would go ahead and obtain a CT chest (PE study). She had this on 04/11 but given recent deterioration, worthwhile excluding again. ? On decadron (thru 04/20) ? remdesivir course completed ? Zosyn per ID ? Pt daughter also shared that pt's spouse is critically ill and deteriorating at [facility]. ICU Checklist Last Documented/Reviewed time: 04/16/2021 9:20 AM A= Assess, Prevent, Manage Pain Pain adequately controlled?: Yes C= Choice of Sedation and Analgesia RASS at Goal?: Yes B= Both Spontaneous Awakening and Breathing Trials Ventilator: None D= Delirium: Assess, Prevent and Manage ICU Delirium Status: CAM Negative - no action required Sleep adequate?: Yes Restraint Status: None E= Early Mobility/Excercise ICU Mobility: ICU Mobility-Pt Has Been Out of Bed: No - Specify F= Family Engagement and Empowerment ICU plan of care visit at bedside in last 24 hours: Yes, Provider, RN, Patient/ designee ICU Disposition: ICU Disposition- Is Patient Clinically Ready to Transfer to [facility] or SDU?: No Discharge Planning: To be determined Prevention: Line Status: None Meier Status: None Pressure Injury Status: None GI/Stress Ulcer Prophylaxis: None - not required Nutrition is at Goal: Advancing to goal VTE Prophylaxis: Chemoprophylaxis: Low Molecular Wt Heparin Mechanical Prophylaxis: No mechanical prophylaxis No Mechanical Prophylaxis Reason: Other - Specify Plan of care discussed with: Provider, RN, Patient. This patient has a high probability of sudden, clinically significant deterioration, which requires the highest level of physician preparedness to intervene urgently. I managed/supervised life or organ supporting interventions that required frequent physician assessment. I devoted my full attention to the direct care of this patient for the amount of time indicated below. Time I spent with family or surrogate(s) is included only if the patient was incapable of providing the necessary information or participating in medical decision making. Time devoted to teaching and to any procedures I billed separately is not included. Critical Care Documentation: The patient has the following organ/system impairment(s): Respiratory failure (Acute, with Hypoxemia) Time spent providing critical care services: 35 minutes excluding procedures. Ramirez Groves MD Pulmonary AND Critical Care Medicine [facility] [place] April 16, 2021 9:14 AM SUBJECTIVE INTERVAL HPI: Coughing fits then desats Presently at 15L MEDICATIONS: Current Facility-Administered Medications Medication Dose Route Frequency - ondansetron 4 mg tab(s) (ZOFRAN) 4 mg ORAL q 6 H PRN Or - ondansetron (PF) 4 mg injection (ZOFRAN) 4 mg INTRAVENOUS q 6 H PRN - docusate sodium 100 mg cap(s) (COLACE) 100 mg ORAL BID PRN - magnesium hydroxide 400 mg/5 mL 30 mL (MOM) 30 mL ORAL DAILY PRN - enoxaparin 40 mg injection (LOVENOX) 40 mg SUBCUTANEOUS q 24 HR - NaCl 0.9% iv flush bag 20 mL INTRAVENOUS PRN - sodium chloride 0.9 % (flush) 3-5 mL (BD POSIFLUSH) 3-5 mL INTRAVENOUS q 12 H - sodium chloride 0.9 % (flush) 10 mL (BD POSIFLUSH) 10 mL INTRAVENOUS q 12 H - sodium chloride 0.9 % (flush) 20 mL (BD POSIFLUSH) 20 mL INTRAVENOUS PRN - heparin 100 unit/mL 500 Units injection 5 mL INTRAVENOUS PRN - exemestane 25 mg tab(s) (AROMASIN) 25 mg ORAL DAILY - acetaminophen 1,000 mg tab(s) (TYLENOL) 1,000 mg ORAL q 8 H PRN - piperacillin-tazobactam iv piggyback 3.375 g in dextrose (iso-osmotic) 50 mL (ZOSYN) 3.375 g INTRAVENOUS q 6 H - albuterol HFA 90 mcg/actuation 2 Puff (PROVENTIL HFA, VENTOLIN HFA) 2 Puff INHALATION Q6H WHILE AWAKE - albuterol HFA 90 mcg/actuation 2 Puff (PROVENTIL HFA, VENTOLIN HFA) 2 Puff INHALATION q 4 H PRN - guaiFENesin-dextromethorphan 100-10 mg/5 mL 10 mL oral liquid (ROBITUSSIN DM) 10 mL ORAL q 4 H PRN - benzonatate 100 mg cap(s) (TESSALON PERLE) 100 mg ORAL TID - traMADol 50 mg tab(s) (ULTRAM) 50 mg ORAL q 6 H PRN - dexAMETHasone 6 mg (DECADRON) 6 (more content not included)...[facility]08-28-2021 NoteHNO ID: [id number] Author: Ramirez Groves MD Service: Critical Care Author Type: Physician Type: Progress Notes Filed: 04/15/2021 1:04 PM Note Text: . Pulmonary AND Critical Care Medicine Follow-up Note Patient Name: Bo Monteiro SERVICE DATE: 04/15/2021 ASSESSMENT 1. Acute hypoxic respiratory failure 2. COVID19 pneumonia 3. Possible superimposed bacterial pneumonia 4. Hx invasive ductal breast carcinoma (2020) 5. Hypertension RECOMMENDATIONS ? Stable on VM right now ? Transition to midflow once stable ? On decadron ? On zosyn ? Completed remdesivir ? Reviewed recent imaging ? Given acute change; would check for VTE (leg dopplers for now) ? Updated pt daughter at bedside; also updated other pt daughter (Travis) by phone. Questions answered ICU Checklist Last Documented/Reviewed time: 04/15/2021 1:03 PM A= Assess, Prevent, Manage Pain Pain adequately controlled?: Yes C= Choice of Sedation and Analgesia RASS at Goal?: Yes B= Both Spontaneous Awakening and Breathing Trials Ventilator: None D= Delirium: Assess, Prevent and Manage ICU Delirium Status: CAM Negative - no action required Sleep adequate?: Yes Restraint Status: None E= Early Mobility/Excercise ICU Mobility: ICU Mobility-Pt Has Been Out of Bed: No - Specify F= Family Engagement and Empowerment ICU plan of care visit at bedside in last 24 hours: Yes, Provider, RN, Patient/ designee ICU Disposition: ICU Disposition- Is Patient Clinically Ready to Transfer to RNF or SDU?: No Discharge Planning: To be determined Prevention: Line Status: None Meier Status: None Pressure Injury Status: None GI/Stress Ulcer Prophylaxis: None - not required Nutrition is at Goal: Advancing to goal VTE Prophylaxis: Chemoprophylaxis: Low Molecular Wt Heparin Mechanical Prophylaxis: No mechanical prophylaxis No Mechanical Prophylaxis Reason: Other - Specify Plan of care discussed with: Provider, RN, Patient. Daughter by phone This patient has a high probability of sudden, clinically significant deterioration, which requires the highest level of physician preparedness to intervene urgently. I managed/supervised life or organ supporting interventions that required frequent physician assessment. I devoted my full attention to the direct care of this patient for the amount of time indicated below. Time I spent with family or surrogate(s) is included only if the patient was incapable of providing the necessary information or participating in medical decision making. Time devoted to teaching and to any procedures I billed separately is not included. Critical Care Documentation: The patient has the following organ/system impairment(s): Respiratory failure (Acute) Time spent providing critical care services: 35 minutes excluding procedures. Ramirez Groves MD Pulmonary AND Critical Care Medicine [facility] [place] April 15, 2021 9:53 AM SUBJECTIVE INTERVAL HPI: Transferred to ICU urgently this AM after desaturation Was on bedpan MEDICATIONS: Current Facility-Administered Medications Medication Dose Route Frequency - ondansetron 4 mg tab(s) (ZOFRAN) 4 mg ORAL q 6 H PRN Or - ondansetron (PF) 4 mg injection (ZOFRAN) 4 mg INTRAVENOUS q 6 H PRN - docusate sodium 100 mg cap(s) (COLACE) 100 mg ORAL BID PRN - magnesium hydroxide 400 mg/5 mL 30 mL (MOM) 30 mL ORAL DAILY PRN - enoxaparin 40 mg injection (LOVENOX) 40 mg SUBCUTANEOUS q 24 HR - NaCl 0.9% iv flush bag 20 mL INTRAVENOUS PRN - sodium chloride 0.9 % (flush) 3-5 mL (BD POSIFLUSH) 3-5 mL INTRAVENOUS q 12 H - sodium chloride 0.9 % (flush) 10 mL (BD POSIFLUSH) 10 mL INTRAVENOUS q 12 H - sodium chloride 0.9 % (flush) 20 mL (BD POSIFLUSH) 20 mL INTRAVENOUS PRN - heparin 100 unit/mL 500 Units injection 5 mL INTRAVENOUS PRN - exemestane 25 mg tab(s) (AROMASIN) 25 mg ORAL DAILY - acetaminophen 1,000 mg tab(s) (TYLENOL) 1,000 mg ORAL q 8 H PRN - piperacillin-tazobactam iv piggyback 3.375 g in dextrose (iso-osmotic) 50 mL (ZOSYN) 3.375 g INTRAVENOUS q 6 H - melatonin 6 mg tab(s) 6 mg ORAL DAILY (8 PM) - albuterol HFA 90 mcg/actuation 2 Puff (PROVENTIL HFA, VENTOLIN HFA) 2 Puff INHALATION Q6H WHILE AWAKE - albuterol HFA 90 mcg/actuation 2 Puff (PROVENTIL HFA, VENTOLIN HFA) 2 Puff INHALATION q 4 H PRN - guaiFENesin-dextromethorphan 100-10 mg/5 mL 10 mL oral liquid (ROBITUSSIN DM) 10 mL ORAL q 4 H PRN - benzonatate 100 mg cap(s) (TESSALON PERLE) 100 mg ORAL TID - traMADol 50 mg tab(s) (ULTRAM) 50 mg ORAL q 6 H PRN - [START ON 04/16/2021] dexAMETHasone 6 mg (DECADRON) 6 mg ORAL DAILY WITH BREAKFAST - NaCl 0.9% 500 mL iv bolus 500 mL INTRAVENOUS ONCE OBJECTIVE PHYSICAL EXAM: Vital Sign (more content not included)...[facility]08-28-2021 NoteHNO ID: [id number] Author: Popeye Arzola MD Service: Hospital Medicine Author Type: Physician Type: Progress Notes Filed: 04/15/2021 9:32 AM Note Text: INTERNAL MEDICINE PROGRESS NOTE PATIENT NAME: Bo Monteiro DATE AND TIME OF SERVICE: April 15, 2021, 9:22 AM ATTENDING PHYSICIAN: Popeye Arzola MD INTERVAL HISTORY: Outpatient and hospital charts reviewed. Abrupt increase in O2 requirements this morning after minimal exertion. States she feels dizzy, but denies CP, palpitations, fever, chills. Back pain from cough. Nonbloody diarrhea persists. PHYSICAL EXAM: BP 117/59 Pulse 74 Temp 36.7 ?C (98.1 ?F) (Oral) Resp 20 Ht 154.9 cm (5' 1) Wt 90.6 kg (199 lb 11.8 oz) SpO2 90% BMI 37.74 kg/m? Intake/Output Summary (Last 24 hours) at 04/15/2021 0922 Last data filed at 04/15/2021 0258 Gross per 24 hour Intake ? Output 1600 ml Net -1600 ml Lungs: a few scattered rhonchi bilaterally Heart: regular, no gallop, no murmur Abdomen: normoactive bowel sounds, soft, nontender Extremities: no edema, no tenderness DATA: Recent Labs 04/14/21 0600 04/13/21 0555 NA 140 140 K 4.0 4.2 CHLOR 104 102 CO2 28 26 CREAT 1.08* 1.04* BUN 24* 27* GLUC 78 89 TPROT 6.1* 6.6 ALB 3.2* 3.3* CA 8.9 9.1 ALKPHOS 62 76 TBILI 0.3 0.3 AST 35* 45* ALT 25 28 MEDICATIONS: Current Facility-Administered Medications Medication Dose Route Frequency - ondansetron 4 mg tab(s) (ZOFRAN) 4 mg ORAL q 6 H PRN Or - ondansetron (PF) 4 mg injection (ZOFRAN) 4 mg INTRAVENOUS q 6 H PRN - docusate sodium 100 mg cap(s) (COLACE) 100 mg ORAL BID PRN - magnesium hydroxide 400 mg/5 mL 30 mL (MOM) 30 mL ORAL DAILY PRN - enoxaparin 40 mg injection (LOVENOX) 40 mg SUBCUTANEOUS q 24 HR - NaCl 0.9% iv flush bag 20 mL INTRAVENOUS PRN - sodium chloride 0.9 % (flush) 3-5 mL (BD POSIFLUSH) 3-5 mL INTRAVENOUS q 12 H - sodium chloride 0.9 % (flush) 10 mL (BD POSIFLUSH) 10 mL INTRAVENOUS q 12 H - sodium chloride 0.9 % (flush) 20 mL (BD POSIFLUSH) 20 mL INTRAVENOUS PRN - heparin 100 unit/mL 500 Units injection 5 mL INTRAVENOUS PRN - losartan 25 mg tab(s) (COZAAR) 25 mg ORAL DAILY - exemestane 25 mg tab(s) (AROMASIN) 25 mg ORAL DAILY - dexAMETHasone 6 mg (DECADRON) 6 mg ORAL DAILY - acetaminophen 1,000 mg tab(s) (TYLENOL) 1,000 mg ORAL q 8 H PRN - piperacillin-tazobactam iv piggyback 3.375 g in dextrose (iso-osmotic) 50 mL (ZOSYN) 3.375 g INTRAVENOUS q 6 H - guaiFENesin-dextromethorphan 100-10 mg/5 mL 10 mL oral liquid (ROBITUSSIN DM) 10 mL ORAL q 4 H PRN - melatonin 6 mg tab(s) 6 mg ORAL DAILY (8 PM) - albuterol HFA 90 mcg/actuation 2 Puff (PROVENTIL HFA, VENTOLIN HFA) 2 Puff INHALATION Q6H WHILE AWAKE - albuterol HFA 90 mcg/actuation 2 Puff (PROVENTIL HFA, VENTOLIN HFA) 2 Puff INHALATION q 4 H PRN ASSESSMENT AND PLAN: COVID-19 pneumonia Superimposed bacterial pneumonia Acute respiratory failure IDC right breast on aromasin - transfer to ICU - repeat CXR - no PE on 04/11 CT, consider repeat if no alternative explanation for increased O2 requirements - decadron day 5, remdesivir day 5 - zosyn day 5 - follow fluid status in view of ongoing GI losses; NSB ordered - her also had COVID-19 and is now on ventilator Plan of care discussed with: patient, her son, RN. Popeye Arzola MD April 15, 2021, 9:22 AM For patient issues: - days from 0700 to 1700 please page me at [phone]; - nights from 1700 to 0700 please page the Medical Vortex Operator at [phone] or the night coverage physician at [phone].[facility] 04-14-2021 NoteHNO ID: [id number] Author: Raisa Bueno RN Service: Care Management Author Type: Registered Nurse Type: Care Mgt Progress Note Filed: 04/14/2021 12:22 PM Note Text: CARE MANAGEMENT PROGRESS NOTE SERVICE DATE: 04/14/2021 SERVICE TIME: 0800 LOS: 3 days [place] of Choice Given: Yes Level of Care Discussed: [facility] Facility Provider List: (SNF choices reviewed with patient's daughter) Needs Prior to Discharge: Accepting Facility;To Be Determined;Bed Availability;Discharge Transportation Chart reviewed. Spoke with patient via room phone to discuss pt/ot evaluation: SNF. Patient agrees; aware snf choices limited due to +COVID. Call placed to patient's daughter to review snf choices as patient very sob(bedside RN notified) Preference: [facility]; referral sent. Facility can accept when patient medically stable on 4LNC O2 or less. Covid test within 72 hours of admission. Patient, Dr Castellon, bedside RN informed, VM left for patient's daughter to inform. SIGNATURE: Raisa Bueno RN PATIENT NAME: Bo Monteiro DATE: April 14, 2021 TIME: 12:13 PM PAGER/CONTACT #: [phone] NoteHNO ID: [id number] Author: Sukumar Castellon MD Service: ? Author Type: Physician Type: Progress Notes Filed: 04/14/2021 3:40 PM Note Text: INTERNAL MEDICINE PROGRESS NOTES Patient Name: Bo Monteiro DATE of SERVICE: 04/14/2021 TIME of SERVICE: 8:33 AM Attending Physician: Sukumar Castellon MD Interval HPI: Patient still with shortness of breath. PHYSICAL EXAM: BP 133/68 Pulse (!) 59 Temp 37 ?C (98.6 ?F) (Oral) Resp 18 Ht 154.9 cm (5' 1) Wt 90.6 kg (199 lb 11.8 oz) SpO2 93% BMI 37.74 kg/m? General appearance- alert and in no apparent distress Lungs- decreased basilar breath sounds Cardio- regular rate rhythm s1, s2, no murmur/gallop appreciated Abdomen- soft, non tender, non distended, bowel sounds positive Extremities- no edema, cyanosis, clubbing Neurologic- alert, oriented x3, CN II-XII intact Integument- warm, dry, intact Current Facility-Administered Medications Medication Dose Route Frequency - ondansetron 4 mg tab(s) (ZOFRAN) 4 mg ORAL q 6 H PRN Or - ondansetron (PF) 4 mg injection (ZOFRAN) 4 mg INTRAVENOUS q 6 H PRN - docusate sodium 100 mg cap(s) (COLACE) 100 mg ORAL BID PRN - magnesium hydroxide 400 mg/5 mL 30 mL (MOM) 30 mL ORAL DAILY PRN - enoxaparin 40 mg injection (LOVENOX) 40 mg SUBCUTANEOUS q 24 HR - NaCl 0.9% iv flush bag 20 mL INTRAVENOUS PRN - sodium chloride 0.9 % (flush) 3-5 mL (BD POSIFLUSH) 3-5 mL INTRAVENOUS q 12 H - remdesivir 100 mg in NaCl 0.9% 250 mL Vial-Mate/ADD-Ringling 100 mg INTRAVENOUS q 24 HR - sodium chloride 0.9 % (flush) 10 mL (BD POSIFLUSH) 10 mL INTRAVENOUS q 12 H - sodium chloride 0.9 % (flush) 20 mL (BD POSIFLUSH) 20 mL INTRAVENOUS PRN - heparin 100 unit/mL 500 Units injection 5 mL INTRAVENOUS PRN - losartan 25 mg tab(s) (COZAAR) 25 mg ORAL DAILY - exemestane 25 mg tab(s) (AROMASIN) 25 mg ORAL DAILY - dexAMETHasone 6 mg (DECADRON) 6 mg ORAL DAILY - acetaminophen 1,000 mg tab(s) (TYLENOL) 1,000 mg ORAL q 8 H PRN - piperacillin-tazobactam iv piggyback 3.375 g in dextrose (iso-osmotic) 50 mL (ZOSYN) 3.375 g INTRAVENOUS q 6 H - guaiFENesin-dextromethorphan 100-10 mg/5 mL 10 mL oral liquid (ROBITUSSIN DM) 10 mL ORAL q 4 H PRN - melatonin 6 mg tab(s) 6 mg ORAL DAILY (8 PM) DATA: Recent Labs 04/14/21 0600 04/13/21 1239 04/13/21 0555 04/12/21 0320 NA 140 -- 140 137 K 4.0 -- 4.2 4.2 CHLOR 104 -- 102 100 CO2 28 -- 26 25 CREAT 1.08* -- 1.04* 1.03* BUN 24* -- 27* 23* GLUC 78 -- 89 142* TPROT 6.1* -- 6.6 6.4* ALB 3.2* -- 3.3* 3.4* CA 8.9 -- 9.1 8.6 ALKPHOS 62 -- 76 69 TBILI 0.3 -- 0.3 0.2 AST 35* -- 45* 41* ALT 25 -- 28 25 CRP -- 9.9* 14.0* 27.1* Assessment/Plan: 1. Covid 19 pneumonia/Acute hypoxemic respiratory failure-?increasing oxygen requirements on admission necessitating transfer to ICU. Patient peaked on 6 liters nasal cannula currently on 4. CT chest 04/11/21 with bilateral ground glass opacities. -Decadron/Remdesivir day #4. -ID following. 2. Clinical bacterial pneumonia- elevated presenting procalcitonin. Zosyn day #4/7 per ID. Vancomycin discontinued with negative nasal MRSA screen. ? 3. Hx invasive ductal carcinoma right breast 2019- Aromasin daily. ? 4. Hypertension- cozaar ? 5.?DVT Prophylaxis- low molecular weight heparin. Above reviewed with the patients daughter Travis [phone] Arzola to assume care of patient as Attending physician effective 0700 04/15/21. SIGNATURE: Sukumar Castellon MD Date: 04/14/2021 Time: 8:33 AM Plan of care discussed with: Provider, RN, Patient. Total time caring/evaluating patient was 30 minutes.[place] [id number] NoteHNO ID: [id number] Author: Dina Manley APRN.[facility] Service: ? Author Type: Nurse Practitioner Type: Progress Notes Filed: 04/13/2021 6:38 PM Note Text: Clinical Indicators: 04/13/21 Current BMI: 37.74 kg/m 2 Last Wt: 90.6 kg (199 lb 11.8 oz) as of 04/11/2021 Height: 154.9 cm (5' 1) as of 04/11/2021 04/12/21 Infectious Disease Consult Notes ...obese... 04/11/21 HANDP ...COVID19 pneumonia...HTN...Acute hypoxic resp failure 04/12/21 Physical Therapy Notes Training AND education provided in: Positioning, Role of Physical Therapy, Benefits of in-hospital mobility, Bed mobility, Assistive device use, Patient Exercise/Therapy program support needs... 04/11/21 Diet Order: Heart Healthy 04/12/21 Diet Supplements Order: Ensure Enlive Please clarify if there is a Diagnosis Associated with the Above Clinical Indicators and Treatment Such As: Overweight x Obesity Clinically Unable to Determine Other, please specify Plan: Patient education regarding proper diet Patient education regarding exercise Nutrition consultation as needed Dina Manley APRN.[facility]08-26-2021 NoteHNO ID: [id number] Author: Sukumar Castellon MD Service: ? Author Type: Physician Type: Progress Notes Filed: 04/13/2021 8:02 AM Note Text: INTERNAL MEDICINE PROGRESS NOTES Patient Name: Bo Monteiro DATE of SERVICE: 04/13/2021 TIME of SERVICE: 8:01 AM Attending Physician: Sukumar Castellon MD Interval HPI: Patient with persistent shortness of breath stating my breathing is rough PHYSICAL EXAM: BP 128/66 Pulse (!) 52 Temp 36.9 ?C (98.4 ?F) (Oral) Resp 18 Ht 154.9 cm (5' 1) Wt 90.6 kg (199 lb 11.8 oz) SpO2 93% BMI 37.74 kg/m? General appearance- alert and in no apparent distress Lungs- decreased bilateral breath sounds Cardio- regular rate rhythm s1, s2, no murmur/gallop appreciated Abdomen- soft, non tender, non distended, bowel sounds positive Extremities- no edema, cyanosis, clubbing Neurologic- alert, oriented x3, CN II-XII intact Integument- warm, dry, intact Current Facility-Administered Medications Medication Dose Route Frequency - ondansetron 4 mg tab(s) (ZOFRAN) 4 mg ORAL q 6 H PRN Or - ondansetron (PF) 4 mg injection (ZOFRAN) 4 mg INTRAVENOUS q 6 H PRN - docusate sodium 100 mg cap(s) (COLACE) 100 mg ORAL BID PRN - magnesium hydroxide 400 mg/5 mL 30 mL (MOM) 30 mL ORAL DAILY PRN - enoxaparin 40 mg injection (LOVENOX) 40 mg SUBCUTANEOUS q 24 HR - NaCl 0.9% iv flush bag 20 mL INTRAVENOUS PRN - sodium chloride 0.9 % (flush) 3-5 mL (BD POSIFLUSH) 3-5 mL INTRAVENOUS q 12 H - remdesivir 100 mg in NaCl 0.9% 250 mL Vial-Mate/ADD-Ringling 100 mg INTRAVENOUS q 24 HR - sodium chloride 0.9 % (flush) 10 mL (BD POSIFLUSH) 10 mL INTRAVENOUS q 12 H - sodium chloride 0.9 % (flush) 20 mL (BD POSIFLUSH) 20 mL INTRAVENOUS PRN - heparin 100 unit/mL 500 Units injection 5 mL INTRAVENOUS PRN - losartan 25 mg tab(s) (COZAAR) 25 mg ORAL DAILY - exemestane 25 mg tab(s) (AROMASIN) 25 mg ORAL DAILY - dexAMETHasone 6 mg (DECADRON) 6 mg ORAL DAILY - acetaminophen 1,000 mg tab(s) (TYLENOL) 1,000 mg ORAL q 8 H PRN - piperacillin-tazobactam iv piggyback 3.375 g in dextrose (iso-osmotic) 50 mL (ZOSYN) 3.375 g INTRAVENOUS q 6 H - guaiFENesin-dextromethorphan 100-10 mg/5 mL 10 mL oral liquid (ROBITUSSIN DM) 10 mL ORAL q 4 H PRN - melatonin 6 mg tab(s) 6 mg ORAL DAILY (8 PM) DATA: Recent Labs 04/12/21 0320 04/11/21 0620 04/11/21 0047 WBC -- 11.65* 13.37* HB -- 11.7 12.3 HCT -- 35.6* 36.8 PLT -- 178 209 NA 137 135* 135* K 4.2 4.2 3.9 CHLOR 100 102 99 CO2 25 19* 18* CREAT 1.03* 1.10* 1.19* BUN 23* 18 19 GLUC 142* 110* 102* TPROT 6.4* 6.4* 6.7 ALB 3.4* 3.5* 3.9 MG -- -- 1.7 CA 8.6 8.7 8.8 ALKPHOS 69 74 77 TBILI 0.2 0.2 0.3 AST 41* 50* 47* ALT 25 24 24 CRP 27.1* 25.0* -- Assessment/Plan: 1. Covid 19 pneumonia/Acute hypoxemic respiratory failure- increasing oxygen requirements on admission necessitating transfer to ICU. Patient peaked on 6 liters nasal cannula currently on 3. CT chest 04/11/21 with bilateral ground glass opacities. -Decadron/Remdesivir day #3. -ID following. ? 2. Hx invasive ductal carcinoma right breast 2019- Aromasin daily. ? 3. Hypertension- cozaar ? 4.?DVT Prophylaxis- low molecular weight heparin. SIGNATURE: Sukumar Castellon MD Date: 04/13/2021 Time: 8:01 AM Plan of care discussed with: Provider, RN, Patient. 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 Last discharge within 30 days: No Advance Directive: Current Advance Directive: Health Care Power of Bulb Brander In Chart: No Chief Nurse Executive Attempted to Assist with AD Completion: Yes Action: Education Provided Health LiteracyHow often do you need to have someone help you when you read instructions, pamphlets, or other written material from your doctor or pharmacy? : 1 - Never Baseline Mental Status Prior to this Illness what was the patient's Baseline Mental Status?: Alert AND Oriented Prior to this illness, has anyone described the patient having any of the following behaviors?: Not Applicable Relationship of the informant to the patient:: Daughter Name of Informant: : Travis Functional Status: Independent Does Patient Currently Receive Any Community Services or Home Care?: None Equipment Prior to Admission: None Has the Patient Been in a [facility] Facility in the Past 30 days?: No SOCIAL: Living Arrangements: Home Lives With: Spouse Financial Resources: Retired;Employed Primary Contact: Extended Emergency Contact Information Primary Emergency Contact: Travis Hensley Mobile Relation: Daughter Secondary Emergency Contact: Derrek Monteiro Mobile Relation: Spouse Supportive Patient Contact:: Yes Contact Resources: Family Family Name/Phone: Daughter: Travis Caregiver AssessmentCaregiver is ready, willing and able to meet the patient's needs as recommended by the inter-professional team:: No Caregiver needed Does the patient have an acute stroke diagnosis, or has the patient had a stroke during this admission?: No Patient's transition needs and plan for meeting these needs: Patient will return home Patient's perception of need for this admission: n/a Are you interested in bedside delivery of your medications? Yes Is Patient Psychosocially Complex?: No ASSESSMENT AND PLAN: Medical Needs: Medical Needs: None Psychosocial Needs: Psychosocial Needs: None FREEDOM OF CHOICE EXPLAINED: [place] of Choice Given: No Reason Not Given: Unable to complete with this assessment - revisit POTENTIAL TRANSITION PLANS Home Patient in ICU; awaiting transfer back to [facility]. Spoke with patient's daughter Travis. Patient admitted yesterday from [place] due to SOB. Spouse in ICU on ventilator. 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 Per daughter, patient very independent. CM to follow for discharge needs. SIGNATURE: Raisa Bueno RN PATIENT NAME: Bo Monteiro DATE: April 12, 2021 TIME: 7:55 AM PAGER/CONTACT #: [phone] NoteHNO ID: [id number] Author: Sukumar Castellon MD Service: ? Author Type: Physician Type: Progress Notes Filed: 04/12/2021 6:21 AM Note Text: INTERNAL MEDICINE PROGRESS NOTES Patient Name: Bo Monteiro DATE of SERVICE: 04/12/2021 TIME of SERVICE: 6:19 AM Attending Physician: Rloo Oates MD Interval HPI: Patient feels her breathing is better than yesterday. PHYSICAL EXAM: BP 115/69 Pulse 63 Temp 36.7 ?C (98.1 ?F) (Axillary) Resp 22 Ht 154.9 cm (5' 1) Wt 90.6 kg (199 lb 11.8 oz) SpO2 92% BMI 37.74 kg/m? General appearance- alert and in no apparent distress Lungs- decreased bilateral breath sounds Cardio- regular rate rhythm s1, s2, no murmur/gallop appreciated Abdomen- soft, non tender, non distended, bowel sounds positive Extremities- no edema, cyanosis, clubbing Neurologic- alert, oriented x3, CN II-XII intact Integument- warm, dry, intact Current Facility-Administered Medications Medication Dose Route Frequency - ondansetron 4 mg tab(s) (ZOFRAN) 4 mg ORAL q 6 H PRN Or - ondansetron (PF) 4 mg injection (ZOFRAN) 4 mg INTRAVENOUS q 6 H PRN - docusate sodium 100 mg cap(s) (COLACE) 100 mg ORAL BID PRN - magnesium hydroxide 400 mg/5 mL 30 mL (MOM) 30 mL ORAL DAILY PRN - enoxaparin 40 mg injection (LOVENOX) 40 mg SUBCUTANEOUS q 24 HR - NaCl 0.9% iv flush bag 20 mL INTRAVENOUS PRN - sodium chloride 0.9 % (flush) 3-5 mL (BD POSIFLUSH) 3-5 mL INTRAVENOUS q 12 H - remdesivir 100 mg in NaCl 0.9% 250 mL Vial-Mate/ADD-Ringling 100 mg INTRAVENOUS q 24 HR - sodium chloride 0.9 % (flush) 10 mL (BD POSIFLUSH) 10 mL INTRAVENOUS q 12 H - sodium chloride 0.9 % (flush) 20 mL (BD POSIFLUSH) 20 mL INTRAVENOUS PRN - heparin 100 unit/mL 500 Units injection 5 mL INTRAVENOUS PRN - losartan 25 mg tab(s) (COZAAR) 25 mg ORAL DAILY - exemestane 25 mg tab(s) (AROMASIN) 25 mg ORAL DAILY - dexAMETHasone 6 mg (DECADRON) 6 mg ORAL DAILY - acetaminophen 1,000 mg tab(s) (TYLENOL) 1,000 mg ORAL q 8 H PRN - vancomycin dosing and monitoring per pharmacy OTHER As Directed - piperacillin-tazobactam iv piggyback 3.375 g in dextrose (iso-osmotic) 50 mL (ZOSYN) 3.375 g INTRAVENOUS q 6 H - vancomycin 1.5 g in D5W 250 mL (VANCOCIN) 1.5 g INTRAVENOUS q 12 HR - guaiFENesin-dextromethorphan 100-10 mg/5 mL 10 mL oral liquid (ROBITUSSIN DM) 10 mL ORAL q 4 H PRN - melatonin 6 mg tab(s) 6 mg ORAL DAILY (8 PM) DATA: Recent Labs 04/12/21 0320 04/11/21 0620 04/11/21 0047 WBC -- 11.65* 13.37* HB -- 11.7 12.3 HCT -- 35.6* 36.8 PLT -- 178 209 NA 137 135* 135* K 4.2 4.2 3.9 CHLOR 100 102 99 CO2 25 19* 18* CREAT 1.03* 1.10* 1.19* BUN 23* 18 19 GLUC 142* 110* 102* TPROT 6.4* 6.4* 6.7 ALB 3.4* 3.5* 3.9 MG -- -- 1.7 CA 8.6 8.7 8.8 ALKPHOS 69 74 77 TBILI 0.2 0.2 0.3 AST 41* 50* 47* ALT 25 24 24 CRP 27.1* 25.0* -- Assessment/Plan: 1. Covid 19 pneumonia/Acute hypoxemic respiratory failure- increasing oxygen requirements yesterday morning necessitated transfer to the ICU. Patient since with significant improvement and reduction of requirement to [address] chest 04/11/21 with bilateral ground glass opacities. Patient started on Decadron in the outpatient setting 04/10/21. -unvaccinated -transfer back to floor. ? 2. Hx invasive ductal carcinoma right breast 2019- Aromasin daily. ? 3. Hypertension- cozaar ? 4. DVT Prophylaxis- low molecular weight heparin. SIGNATURE: Sukumar Castellon MD Date: 04/12/2021 Time: 6:19 AM Plan of care discussed with: Provider, RN, Patient. Total time caring/evaluating patient was 30 minutes.[facility]08-24-2021 NoteHNO ID: [id number] Author: Yazmin Greene APRN.CNP Service: Critical Care Author Type: Nurse Practitioner Type: Progress Notes Filed: 04/11/2021 8:13 PM Note Text: INPATIENT PROGRESS NOTE * SERVICE DATE: 04/11/2021 SERVICE TIME: 1999 Patient transferred to ICU today for increasing O2 demands, COVID + procal came back 7, will start Vanc/Zosyn, send MRSA swab. Refer to ID for deescalating of Abx. SIGNATURE: Yazmin Greene APRN.CNP PATIENT NAME: Bo Monteiro DATE: April 11, 2021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 meniscus tear acute Cyst of anterior horn of lateral meniscus acute Lateral meniscus tear acute Breast cancer of lower-inner quadrant of right female breast chronic Essential (primary) hypertension chronic Cyst of anterior horn of lateral meniscus acute Knee joint cyst, left acute Lateral meniscus tear acute [facility] Work Phone: Evaluation note* Diagnosis Onset Date Resolution Status Meniscal cyst noneactive Breast cancer of lower-inner quadrant of right female breast chronic Osteopenia chronic Anxiety as acute reaction to gross stress acute Encounter for chemotherapy management acute Encounter for education acut e Rash acute Urinary frequency acute Breast cancer of lower-inner quadrant of right female breast chronic Osteopenia chronic Chest pressure resolved Drug rash resolved Cyst of anterior horn of lateral meniscus acute Lateral meniscus tear acute Left knee DJD acute Sciatica of left side acute Cyst of anterior horn of lateral meniscus acute History of breast cancer acu te Lateral meniscus tear acute Cyst of anterior horn of lateral meniscus acute Lateral meniscus tear acute Breast cancer of lower-inner quadrant of right female breast chronic Essential (primary) hypertension chronic Cyst of anterior horn of lateral meniscus acute Knee joint cyst, left acute Lateral meniscus tear acute Orthopedic aftercare noneact gemma [facility] Work Phone: Evaluation note* Diagnosis Preoperative examination- Primary Preoperative examination, unspecified Malignant neoplasm of upper-outer quadrant of right female breast, unspecified estrogen receptor status (HCC) Essential hypertension Unspecified essential hypertension Asymptomatic PVCs Other premature beats Stroke-like symptoms- Primary Other symptoms involving nervous and musculoskeletal systems Acute ischemic stroke (HCC) Unspecified cerebral artery occlusion with cerebral infarction Stroke-like symptoms Other symptoms involving nervous and musculoskeletal systems 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 HTN (hypertension) Unspecified essential hypertension Anxiety Anxiety state, unspecified Left-sided weakness Muscle weakness (generalized) Arterial ischemic stroke (HCC)- Primary Unspecified cerebral artery occlusion with cerebral infarction [facility] Preoperative examination- Primary Preoperative examination, unspecified Malignant neoplasm of upper-outer quadrant of right female breast, unspecified estrogen receptor status (HCC) Essential hypertension Unspecified essential hypertension Asymptomatic PVCs Other premature beats Stroke-like symptoms- Primary Other symptoms involving nervous and musculoskeletal systems Acute ischemic stroke (HCC) Unspecified cerebral artery occlusion with cerebral infarction Stroke-like symptoms Other symptoms involving nervous and musculoskeletal systems 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 HTN (hypertension) Unspecified essential hypertension Anxiety Anxiety state, unspecified Left-sided weakness Muscle weakness (generalized) Dizziness Dizziness and giddiness Stroke (cerebrum) (HCC) Unspecified cerebral artery occlusion with cerebral infarction Metabolic acidosis Acidosis Hypokalemia Hypopotassemia Obesity, Class I, BMI 30-34.9 Obesity, unspecified PFO (patent foramen ovale)- Primary Ostium secundum type atrial septal defect [facility] Diagnosis Preoperative examination- Primary Preoperative examination, unspecified Malignant neoplasm of upper-outer quadrant of right female breast, unspecified estrogen receptor status (HCC) Essential hypertension Unspecified essential hypertension Asymptomatic PVCs Other premature beats Stroke-like symptoms- Primary Other symptoms involving nervous and musculoskeletal systems Acute ischemic stroke (HCC) Unspecified cerebral artery occlusion with cerebral infarction Stroke-like symptoms Other symptoms involving nervous and musculoskeletal systems 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 HTN (hypertension) Unspecified essential hypertension Anxiety Anxiety state, unspecified Left-sided weakness Muscle weakness (generalized) Dizziness Dizziness and giddiness Stroke (cerebrum) (HCC) Unspecified cerebral artery occlusion with cerebral infarction Metabolic acidosis Acidosis Hypokalemia Hypopotassemia Obesity, Class I, BMI 30-34.9 Obesity, unspecified Cerebrovascular accident (CVA) due to 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)- Primary Essential hypertension Unspecified essential hypertension PFO (patent foramen ovale) Ostium secundum type atrial septal defect PFO (patent foramen ovale) Ostium secundum type atrial septal defect [facility] Diagnosis Preoperative examination- Primary Preoperative examination, unspecified Malignant neoplasm of upper-outer quadrant of right female breast, unspecified estrogen receptor status (HCC) Essential hypertension Unspecified essential hypertension Asymptomatic PVCs Other premature beats Stroke-like symptoms- Primary Other symptoms involving nervous and musculoskeletal systems Acute ischemic stroke (HCC) Unspecified cerebral artery occlusion with cerebral infarction Stroke-like symptoms Other symptoms involving nervous and musculoskeletal systems 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 HTN (hypertension) Unspecified essential hypertension Anxiety Anxiety state, unspecified Left-sided weakness Muscle weakness (generalized) Dizziness Dizziness and giddiness Stroke (cerebrum) (HCC) Unspecified cerebral artery occlusion with cerebral infarction Metabolic acidosis Acidosis Hypokalemia Hypopotassemia Obesity, Class I, BMI 30-34.9 Obesity, unspecified PFO (patent foramen ovale)- Primary Ostium secundum type atrial septal defect [facility] Diagnosis Preoperative examination- Primary Preoperative examination, unspecified Malignant neoplasm of upper-outer quadrant of right female breast, unspecified estrogen receptor status (HCC) Essential hypertension Unspecified essential hypertension Asymptomatic PVCs Other premature beats Stroke-like symptoms- Primary Other symptoms involving nervous and musculoskeletal systems Acute ischemic stroke (HCC) Unspecified cerebral artery occlusion with cerebral infarction Stroke-like symptoms Other symptoms involving nervous and musculoskeletal systems 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 HTN (hypertension) Unspecified essential hypertension Anxiety Anxiety state, unspecified Left-sided weakness Muscle weakness (generalized) Dizziness Dizziness and giddiness Stroke (cerebrum) (HCC) Unspecified cerebral artery occlusion with cerebral infarction Metabolic acidosis Acidosis Hypokalemia Hypopotassemia Obesity, Class I, BMI 30-34.9 Obesity, unspecified PFO (patent foramen ovale)- Primary Ostium secundum type atrial septal defect documented in this encounter [facility] note* Diagnosis Onset Date Resolution Status Breast cancer of lower-inner quadrant of right female breast chronic Left knee DJD acute Breast cancer of lower-inner quadrant of right female breast chronic Hyperlipidemia acute Essential (primary) hypertension chronic [facility] Work Phone: Evaluation note* Diagnosis Preoperative examination- Primary Preoperative examination, unspecified Malignant neoplasm of upper-outer quadrant of right female breast, unspecified estrogen receptor status (HCC) Essential hypertension Unspecified essential hypertension Asymptomatic PVCs Other premature beats Stroke-like symptoms- Primary Other symptoms involving nervous and musculoskeletal systems Acute ischemic stroke (HCC) Unspecified cerebral artery occlusion with cerebral infarction Stroke-like symptoms Other symptoms involving nervous and musculoskeletal systems 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 HTN (hypertension) Unspecified essential hypertension Anxiety Anxiety state, unspecified Left-sided weakness Muscle weakness (generalized) Dizziness Dizziness and giddiness Stroke (cerebrum) (HCC) Unspecified cerebral artery occlusion with cerebral infarction Metabolic acidosis Acidosis Hypokalemia Hypopotassemia Obesity, Class I, BMI 30-34.9 Obesity, unspecified Cerebrovascular accident (CVA) due to 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)- Primary PFO (patent foramen ovale) Ostium secundum type atrial septal defect Essential hypertension Unspecified essential hypertension Mixed hyperlipidemia PFO (patent foramen ovale) Ostium secundum type atrial septal defect documented in this encounter [facility] note* Diagnosis Preoperative examination- Primary Preoperative examination, unspecified Malignant neoplasm of upper-outer quadrant of right female breast, unspecified estrogen receptor status (HCC) Essential hypertension Unspecified essential hypertension Asymptomatic PVCs Other premature beats Stroke-like symptoms- Primary Other symptoms involving nervous and musculoskeletal systems Acute ischemic stroke (HCC) Unspecified cerebral artery occlusion with cerebral infarction Stroke-like symptoms Other symptoms involving nervous and musculoskeletal systems 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 HTN (hypertension) Unspecified essential hypertension Anxiety Anxiety state, unspecified Left-sided weakness Muscle weakness (generalized) Dizziness Dizziness and giddiness Stroke (cerebrum) (HCC) Unspecified cerebral artery occlusion with cerebral infarction Metabolic acidosis Acidosis Hypokalemia Hypopotassemia Obesity, Class I, BMI 30-34.9 Obesity, unspecified PFO (patent foramen ovale)- Primary Ostium secundum type atrial septal defect PFO (patent foramen ovale) Ostium secundum type atrial septal defect documented in this encounter [facility] note* Diagnosis Preoperative examination- Primary Preoperative examination, unspecified Malignant neoplasm of upper-outer quadrant of right female breast, unspecified estrogen receptor status (HCC) Essential hypertension Unspecified essential hypertension Asymptomatic PVCs Other premature beats Stroke-like symptoms- Primary Other symptoms involving nervous and musculoskeletal systems Acute ischemic stroke (HCC) Unspecified cerebral artery occlusion with cerebral infarction Stroke-like symptoms Other symptoms involving nervous and musculoskeletal systems 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 HTN (hypertension) Unspecified essential hypertension Anxiety Anxiety state, unspecified Left-sided weakness Muscle weakness (generalized) Dizziness Dizziness and giddiness Stroke (cerebrum) (HCC) Unspecified cerebral artery occlusion with cerebral infarction Metabolic acidosis Acidosis Hypokalemia Hypopotassemia Obesity, Class I, BMI 30-34.9 Obesity, unspecified PFO (patent foramen ovale) Ostium secundum type atrial septal defect documented in this encounter [facility] note* Diagnosis Preoperative examination- Primary Preoperative examination, unspecified Malignant neoplasm of upper-outer quadrant of right female breast, unspecified estrogen receptor status (HCC) Essential hypertension Unspecified essential hypertension Asymptomatic PVCs Other premature beats Stroke-like symptoms- Primary Other symptoms involving nervous and musculoskeletal systems Acute ischemic stroke (HCC) Unspecified cerebral artery occlusion with cerebral infarction Stroke-like symptoms Other symptoms involving nervous and musculoskeletal systems 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 HTN (hypertension) Unspecified essential hypertension Anxiety Anxiety state, unspecified Left-sided weakness Muscle weakness (generalized) Dizziness Dizziness and giddiness Stroke (cerebrum) (HCC) Unspecified cerebral artery occlusion with cerebral infarction Metabolic acidosis Acidosis Hypokalemia Hypopotassemia Obesity, Class I, BMI 30-34.9 Obesity, unspecified PFO (patent foramen ovale)- Primary Ostium secundum type atrial septal defect Paroxysmal atrial fibrillation (HCC) Atrial fibrillation documented in this encounter [facility] note* Diagnosis Preoperative examination- Primary Preoperative examination, unspecified Malignant neoplasm of upper-outer quadrant of right female breast, unspecified estrogen receptor status (HCC) Essential hypertension Unspecified essential hypertension Asymptomatic PVCs Other premature beats Stroke-like symptoms- Primary Other symptoms involving nervous and musculoskeletal systems Acute ischemic stroke (HCC) Unspecified cerebral artery occlusion with cerebral infarction Stroke-like symptoms Other symptoms involving nervous and musculoskeletal systems 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 HTN (hypertension) Unspecified essential hypertension Anxiety Anxiety state, unspecified Left-sided weakness Muscle weakness (generalized) Dizziness Dizziness and giddiness Stroke (cerebrum) (HCC) Unspecified cerebral artery occlusion with cerebral infarction Metabolic acidosis Acidosis Hypokalemia Hypopotassemia Obesity, Class I, BMI 30-34.9 Obesity, unspecified Paroxysmal atrial fibrillation (HCC)- Primary Atrial fibrillation Sinus bradycardia Other specified cardiac dysrhythmias documented in this encounter [facility] note* Diagnosis Preoperative examination- Primary Preoperative examination, unspecified Malignant neoplasm of upper-outer quadrant of right female breast, unspecified estrogen receptor status (HCC) Essential hypertension Unspecified essential hypertension Asymptomatic PVCs Other premature beats Stroke-like symptoms- Primary Other symptoms involving nervous and musculoskeletal systems Acute ischemic stroke (HCC) Unspecified cerebral artery occlusion with cerebral infarction Stroke-like symptoms Other symptoms involving nervous and musculoskeletal systems 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 HTN (hypertension) Unspecified essential hypertension Anxiety Anxiety state, unspecified Left-sided weakness Muscle weakness (generalized) Dizziness Dizziness and giddiness Stroke (cerebrum) (HCC) Unspecified cerebral artery occlusion with cerebral infarction Metabolic acidosis Acidosis Hypokalemia Hypopotassemia Obesity, Class I, BMI 30-34.9 Obesity, unspecified Implantable loop recorder present- Primary [facility] Diagnosis Preoperative examination- Primary Preoperative examination, unspecified Malignant neoplasm of upper-outer quadrant of right female breast, unspecified estrogen receptor status (HCC) Essential hypertension Unspecified essential hypertension Asymptomatic PVCs Other premature beats Stroke-like symptoms- Primary Other symptoms involving nervous and musculoskeletal systems Acute ischemic stroke (HCC) Unspecified cerebral artery occlusion with cerebral infarction Stroke-like symptoms Other symptoms involving nervous and musculoskeletal systems 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 HTN (hypertension) Unspecified essential hypertension Anxiety Anxiety state, unspecified Left-sided weakness Muscle weakness (generalized) Dizziness Dizziness and giddiness Stroke (cerebrum) (HCC) Unspecified cerebral artery occlusion with cerebral infarction Metabolic acidosis Acidosis Hypokalemia Hypopotassemia Obesity, Class I, BMI 30-34.9 Obesity, unspecified Plantar fasciitis of right foot- Primary Plantar fascial fibromatosis Pain in right foot Pain in limb [facility] Additional Instructions Please follow-up outpatient.[facility] Work Phone: Reason for referral (narrative)* Outpatient Procedure (Routine) - New Request Specialty Diagnoses / Procedures Referred By Contobey t [facility] Diagnoses PFO (patent foramen ovale) Procedures ECHO TRANSESOPHAGEAL ECHO TRANSESOPHAG R-T 2D W/PRB IMG ACQUSTONEY I&R John, MD Smith [address] [facility] [address] [place] [address] [facility] [place] [address] [place] [id number] Referral ID Status Reason Start Date Expiration Date Visits Requested Visits Authorized [id number] New Request Auto-Generat ed Referral 06/24/2024 06/24/2025 1 1 [facility] for referral (narrative)* Outpatient Procedure (Routine) - New Request Specialty Diagnoses / Procedures Referred By Contac t Referred To Contact [facility] [place] Diagnoses PFO (patent foramen ovale) Procedures ECHO TRANSESOPHAGEAL ECHO TRANSESOPHAG R-T 2D W/PRB IMG ACQUISJ I&R Vandana Goldstein APRN.CNP [address] [place] [address] [facility] [address] [address] Referral ID Status Reason Start Date Expiration Date Visits Requested Visits Authorized [id number] New Request Auto-Generat ed Referral 07/23/2024 07/23/2025 1 1 [facility] for referral (narrative)* Outpatient Procedure (Routine) - New Request Specialty Diagnoses / Procedures Referred By Contac t Referred To Contact [facility] [place] Diagnoses PFO (patent foramen ovale) Procedures ECHO TRANSESOPHAGEAL ECHO TRANSESOPHAG R-T 2D W/PRB IMG ACQUISCyril I&R John, MD Smith [address] [place] [address] [place] [address] [facility] [address] [address] Referral ID Status Reason Start Date Expiration Date Visits Requested Visits Authorized [id number] New Request Auto-Generat ed Referral 07/26/2024 07/26/2025 1 1 [facility] for referral (narrative)No reason for referral information [facility] Work Phone: Summary Purpose Family History No Family History Records Found Relationship Condition Age at Onset Recorded Date/T karla mother Cerebrovascular accident (CVA) Unknown Hypertension Unknown grandmother Cerebrovascular accident (CVA) Unknown aunt Cerebrovascular accident (CVA) Unknown father Chronic obstructive pulmonary disease Unk nown brother Malignant neoplasm of bone Unknown Malignant neoplasm of prostate Unknown Advance Directives No Advanced Directives Records Found Date Activated Date Inactivated Comments 09/24/2024 10:38 PM 09/30/2024 9:25 PM Question Answer Comments Full Code Order Discussed With: Patient Date Activated Date Inactivated Comments 04/19/2024 4:04 PM 04/23/2024 7:23 PM Question Answer Comments Full Code Order Discussed With: Patient Date Activated Date Inactivated Comments 09/24/2024 10:38 PM Date Activated Date Inactivated Comments 04/19/2024 4:04 PM 04/23/2024 7:23 PM Advance Directive Response Recorded Date/ Time Advance Directives on File No Augus 2020 10:33am Name of Medical Power of Bulb Brander Derrek Monteiro March 29, 2021 10:33am Advance Directives Yes June 27, 2021 10:32am Living Will Yes January 21, 2022 1 1:38am Power of Bulb Brander Yes January 21, 2022 11:38am Advance Directive Response Recorded Date/ Time Advance Directives on File No Marus 2020 10:33am Name of Medical Power of Bulb Brander Derrek Monteiro March 29, 2021 10:33am Name of Medical Power of Bulb Brander TRAVIS HENSLEY January 21, 2022 11:38am Name of Medical Power of Bulb Brander IZABELLA DGTR TAIWO TOPETEROSEMARIE May 16, 2022 2:56pm Advance Directives Yes January 25 7:55pm Living Will Yes May 16, 2022 2:56pm Power of Bulb Brander Yes April 2:56pm Advance Directive Response Recorded Date/ Time Advance Directives Yes January 25 7:55pm Living Will Yes May 16, 2022 2:56pm Power of Bulb Brander Yes April 2:56pm Advance Directive Response Recorded Date/ Time Advance Directives on File No Marus 2020 10:33am Name of Medical Power of Bulb Brander Derrek Monteiro March 29, 2021 10:33am Advance Directives Yes January 25 7:55pm Living Will Yes May 16, 2022 2:56pm Power of Bulb Brander Yes April 2:56pm Advance Directive Response Recorded Date/ Time Advance Directives Yes January 25 6:55pm Living Will Yes May 16, 2022 1:56pm Power of Bulb Brander Yes April 1:56pm Advance Directive Response Recorded Date/ Time Advance Directives on File No Augus t 2020 9:33am Name of Medical Power of Bulb Brander Derrek Monteiro March 29, 2021 9:33am Advance Directives Yes January 25 6:55pm Living Will Yes May 16, 2022 1:56pm Power of Bulb Brander Yes April 1:56pm Advance Directive Response Recorded Date/ Time Advance Directives on File No Augus t 2020 10:33am Name of Medical Power of Bulb Brander Derrek Monteiro March 29, 2021 10:33am Name of Medical Power of Bulb Brander IZABELLA DGRIVERA HENSLEY November 18, 2023 1:12pm Advance Directives Yes January 25 7:55pm Living Will Yes November 18, 2023 1:12pm Power of Bulb Brander Yes November 17 1:12pm Advance Directive Response Recorded Date/ Time Advance Directives on File No Augus t 2020 10:33am Name of Medical Power of Bulb Brander Derrek Monteiro March 29, 2021 10:33am Name of Medical Power of Bulb Brander IZABELLA DGRIVERA HENSLEY November 18, 2023 1:12pm Name of Medical Power of Bulb Brander Travis Hensley December 12, 2023 12:44pm Advance Directives Yes January 25 7:55pm Living Will Yes December 12, 2023 12:44pm Power of Bulb Brander Yes December 11 12:44pm Advance Directive Response Recorded Date/ Time Advance Directives on File No Augus t 2020 10:33am Name of Medical Power of Bulb Brander Derrek Monteiro March 29, 2021 10:33am Name of Medical Power of Bulb Brander IZABELLA DGRIVERA CASTAÑEDAI Jasper PELROSEMARIE November 18, 2023 1:12pm Name of Medical Power of Bulb Brander Travis Pelrosemarie December 12, 2023 12:44pm Name of Medical Power of Bulb Brander TRAVIS PELROSEMARIE December 21, 2023 10:32am Advance Directives Yes January 25 7:55pm Living Will Yes December 21, 2023 10 :32am Power of Bulb Brander Yes December 21, 2023 10:32am Date Activated Date Inactivated Comments 04/19/2024 4:04 PM Date Activated Date Inactivated Comments 04/19/2024 4:04 PM 04/23/2024 7:23 PM Question Answer Comments Full Code Order Discussed With: Patient Advance Directive Response Recorded Date/ Time Living Will Yes December 21, 2023 10 :32am Do you have a Healthcare Power of Bulb Brander? Yes December 21, 2023 10:32am Advance Directives on File No Augus 2020 10:33am Living Will Yes March 29 10:33am Do you have a Healthcare Power of Bulb Brander? Yes March 29, 2021 10:33am Name of Medical Power of Bulb Brander Derrek Monteiro March 29, 2021 10:33am Advance Directives Yes January 25 7:55pm Advance Directive Response Recorded Date/ Time Advance Directives on File No Augus t 2020 10:33am Living Will Yes March 29 10:33am Do you have a Healthcare Power of Bulb Brander? Yes March 29, 2021 10:33am Name of Medical Power of Bulb Brander Derrek Monteiro March 29, 2021 10:33am Advance Directives Yes January 25 7:55pm Procedure Findings Note HNO ID: [id number] Author: Cyril Rocha Service: ? Author Type: Anesthesiologist Type: Anesthesia Procedure Notes Filed: 04/22/2020 4:19 PM Note Text: ANESTHESIOLOGY PROCEDURE NOTE Airway General Information Procedure Start Time/Medication Administration: 04/22/2020 12:50 PM Procedure End Time: 04/22/2020 12:51 PM Patient location during procedure: OR Timeout Performed Pre-procedure: timeout performed Consent Obtained: Yes Patient identity confirmed: patient and arm band Staffing Anesthesiologist: Raymond Rocha LEAD GENERATOR: Deng Barlow Performed by: BRITTON Indications and Patient Condition Preoxygenated: yes Patient position: sniffing Manual In-Line Stabilization: Yes Difficult Mask: No Indications for airway management: anesthesia anesthesia circuit Method: asleep Airway Accessory: LMA Final Airway Details Final airway type: supraglottic airway Number of attempts at approach: 1 Final Supraglottic Airway: Size 4 Airway not difficult SIGNATURE: Deng Barlow APRN.LEAD GENERATOR PATIENT NAME: Ther (more content not included)... Chief Complaint and Reason for Visit Chief Complaint 3 MO - LABS ONC/HEM BREAST CANCER followup breast Port Removal Left knee pain 1 Y FU htn Reason for Visit Musculoskeletal pain Osteopenia Breast cancer of lower-inner quadrant of right female breast Anxiety as acute reaction to gross stress Encounter for chemotherapy management Encounter for education Osteopenia Rash Urinary frequency Breast cancer of lower-inner quadrant of right female breast Chest pressure Drug rash Breast cancer of lower-inner quadrant of right female breast Encounter for removal of tunneled central venous catheter (CVC) with port Knee pain, left Swelling of knee joint, left Essential (primary) hypertension Chief Complaint htn F/up hospital vist & medrefills & HTN 3 MO - NO LABS Cat bite/hand LEFT KNEE FLLOWUP BREAST left knee 3MO LABS ONC/HEM Amb Documentation Amb Documentation Reason for Visit Knee pain, left Essential (primary) hypertension Osteopenia Breast cancer of lower-inner quadrant of right female breast Cat bite of hand Infected cat bite Left knee DJD Pes anserinus bursitis of left knee Breast cancer of lower-inner quadrant of right female breast Left knee DJD Osteopenia Breast cancer of lower-inner quadrant of right female breast Anxiety as acute reaction to gross stress Encounter for chemotherapy management Encounter for education Osteopenia Rash Urinary frequency Breast cancer of lower-inner quadrant of right female breast Chest pressure Drug rash Screening for colon cancer Chief Complaint 3MO NO LABS SCREENING 5 month f/u Reason for Visit Breast cancer of low er-inner quadrant of right female breast Musculoskeletal pain Osteopenia Breast cancer of lower-inner quadrant of right female breast Chief Complaint SCREENING 5 month f/u 3 MO - NO LABS - REVIEW MAMM/DEXA ONC/HEM Amb Documentation 1 Y FU ANTINEOPLASTIC CHEMO Reason for Visit Breast cancer of low er-inner quadrant of right female breast Mastitis Breast cancer of lower-inner quadrant of right female breast Osteopenia Anxiety as acute reaction to gross stress Encounter for chemotherapy management Encounter for education Rash Urinary frequency Breast cancer of lower-inner quadrant of right female breast Osteopenia Chest pressure Drug rash Essential (primary) hypertension Chief Complaint 3 MO - NO LABS - REV IEW MAMM/DEXA ONC/HEM Amb Documentation 1 Y FU ANTINEOPLASTIC CHEMO 3MO NO LABS ACUTE-LUMP OM LEFT NIPPLE LEFT BREAST LUMP REVIEW MAMM/US Reason for Visit Mastitis Breast cancer of lower-inner quadrant of right female breast Osteopenia Anxiety as acute reaction to gross stress Encounter for chemotherapy management Encounter for education Rash Urinary frequency Breast cancer of lower-inner quadrant of right female breast Osteopenia Chest pressure Drug rash Essential (primary) hypertension Breast cancer of lower-inner quadrant of right female breast Musculoskeletal pain Osteopenia Breast cancer of lower-inner quadrant of right female breast Breast cancer of lower-inner quadrant of right female breast Chief Complaint Amb Documentation 1 Y FU ANTINEOPLASTIC CHEMO 3MO NO LABS ACUTE-LUMP OM LEFT NIPPLE LEFT BREAST LUMP REVIEW MAMM/US RIGHT KNEE room 2 L BREAST CYST BREAST CA Reason for Visit Essential (primary) hypertension Breast cancer of lower-inner quadrant of right female breast Musculoskeletal pain Osteopenia Breast cancer of lower-inner quadrant of right female breast Breast cancer of lower-inner quadrant of right female breast Right knee pain Left breast lump Chief Complaint 6 month f/u breast LEFT KNEE Room 3 4 MO - NO LABS Hypertension CARDIAC ONC PT HIGH BP OKAY PER MMM Reason for Visit Breast cancer of low er-inner quadrant of right female breast Left knee DJD Breast cancer of lower-inner quadrant of right female breast Hyperlipidemia Essential (primary) hypertension Essential (primary) hypertension Chief Complaint Hypertension CARDIAC ONC PT HIGH BP OKAY PER MMM LEFT KNEE room 3 PAIN LEFT KNEE 4 MO - LABS ONC/HEM LEFT KNEE Reason for Visit Hyperlipidemia Essential (primary) hypertension Essential (primary) hypertension Meniscal cyst Breast cancer of lower-inner quadrant of right female breast Osteopenia Anxiety as acute reaction to gross stress Encounter for chemotherapy management Encounter for education Rash Urinary frequency Breast cancer of lower-inner quadrant of right female breast Osteopenia Chest pressure Drug rash Cyst of anterior horn of lateral meniscus Lateral meniscus tear Left knee DJD Sciatica of left side Chief Complaint Hypertension CARDIAC ONC PT HIGH BP OKAY PER MMM LEFT KNEE room 3 PAIN LEFT KNEE 4 MO - LABS ONC/HEM LEFT KNEE LEFT KNEE L)knee pain 6 MONTH BREAST 3 M FU SCREENING left knee Reason for Visit Hyperlipidemia Essential (primary) hypertension Essential (primary) hypertension Meniscal cyst Breast cancer of lower-inner quadrant of right female breast Osteopenia Anxiety as acute reaction to gross stress Encounter for chemotherapy management Encounter for education Rash Urinary frequency Breast cancer of lower-inner quadrant of right female breast Osteopenia Chest pressure Drug rash Cyst of anterior horn of lateral meniscus Lateral meniscus tear Left knee DJD Sciatica of left side Cyst of anterior horn of lateral meniscus History of breast cancer Lateral meniscus tear Cyst of anterior horn of lateral meniscus Lateral meniscus tear Breast cancer of lower-inner quadrant of right female breast Essential (primary) hypertension Cyst of anterior horn of lateral meniscus Knee joint cyst, left Lateral meniscus tear Chief Complaint CARDIAC ONC PT HIGH BP OKAY PER MMM LEFT KNEE room 3 PAIN LEFT KNEE 4 MO - LABS ONC/HEM LEFT KNEE LEFT KNEE L)knee pain 6 MONTH BREAST 3 M FU SCREENING left knee Left knee partial medial and latera Left knee partial medial and latera Reason for Visit Essential (primary) hypertension Meniscal cyst Breast cancer of lower-inner quadrant of right female breast Osteopenia Anxiety as acute reaction to gross stress Encounter for chemotherapy management Encounter for education Rash Urinary frequency Breast cancer of lower-inner quadrant of right female breast Osteopenia Chest pressure Drug rash Cyst of anterior horn of lateral meniscus Lateral meniscus tear Left knee DJD Sciatica of left side Cyst of anterior horn of lateral meniscus History of breast cancer Lateral meniscus tear Cyst of anterior horn of lateral meniscus Lateral meniscus tear Breast cancer of lower-inner quadrant of right female breast Essential (primary) hypertension Cyst of anterior horn of lateral meniscus Knee joint cyst, left Lateral meniscus tear Chief Complaint LEFT KNEE room 3 PAIN LEFT KNEE 4 MO - LABS ONC/HEM LEFT KNEE LEFT KNEE L)knee pain 6 MONTH BREAST 3 M FU SCREENING left knee Left knee partial medial and latera Left knee partial medial and latera DIZZINESS Reason for Visit Meniscal cyst Breast cancer of lower-inner quadrant of right female breast Osteopenia Anxiety as acute reaction to gross stress Encounter for chemotherapy management Encounter for education Rash Urinary frequency Breast cancer of lower-inner quadrant of right female breast Osteopenia Chest pressure Drug rash Cyst of anterior horn of lateral meniscus Lateral meniscus tear Left knee DJD Sciatica of left side Cyst of anterior horn of lateral meniscus History of breast cancer Lateral meniscus tear Cyst of anterior horn of lateral meniscus Lateral meniscus tear Breast cancer of lower-inner quadrant of right female breast Essential (primary) hypertension Cyst of anterior horn of lateral meniscus Knee joint cyst, left Lateral meniscus tear Chief Complaint LEFT KNEE room 3 PAIN LEFT KNEE 4 MO - LABS ONC/HEM LEFT KNEE LEFT KNEE L)knee pain 6 MONTH BREAST 3 M FU SCREENING left knee Left knee partial medial and latera Left knee partial medial and latera DIZZINESS left knee LLE PAIN Reason for Visit Meniscal cyst Breast cancer of lower-inner quadrant of right female breast Osteopenia Anxiety as acute reaction to gross stress Encounter for chemotherapy management Encounter for education Rash Urinary frequency Breast cancer of lower-inner quadrant of right female breast Osteopenia Chest pressure Drug rash Cyst of anterior horn of lateral meniscus Lateral meniscus tear Left knee DJD Sciatica of left side Cyst of anterior horn of lateral meniscus History of breast cancer Lateral meniscus tear Cyst of anterior horn of lateral meniscus Lateral meniscus tear Breast cancer of lower-inner quadrant of right female breast Essential (primary) hypertension Cyst of anterior horn of lateral meniscus Knee joint cyst, left Lateral meniscus tear Orthopedic aftercare Chief Complaint 6 month f/u breast LEFT KNEE Room 3 4 MO - NO LABS Hypertension Reason for Visit Breast cancer of low er-inner quadrant of right female breast Left knee DJD Breast cancer of lower-inner quadrant of right female breast Hyperlipidemia Essential (primary) hypertension Chief Complaint Admit Date LEFT KNEE August 31, 2024 9 :02am Room 1 August 31, 2024 9 :17am 6MO LABS September 21, 2024 9 :05am ONC/HEM September 21, 2024 9 :15am medication refills & (EKG) September 5:06pm Radiculopathy, lumbar region October 27, 2024 12:15pm MISSED BREAST F/U October 27, 2024 1:3 2pm lesions on liver October 31, 2024 7:3 0am HX OF BREAST CA LEFT BREAST LUMP October [id number] 8:37am Reason for Visit Admit Date Left knee DJD August 31, 2024 9 :02am Elevated alkaline phosphatase level Febr [id number] 9:05am Breast cancer of lower-inner quadrant of right female breast September 21, 2024 9:05am Osteopenia September 21, 2024 9 :05am Anxiety as acute reaction to gross stres s September 21, 2024 9:15am Encounter for chemotherapy management Fe bru2024 9:15am Encounter for education September 21 9:15am Rash September 21, 2024 9 :15am Urinary frequency September 21, 2024 9 :15am Breast cancer of lower-inner quadrant of right female breast September 21, 2024 9:15am Osteopenia September 21, 2024 9 :15am Chest pressure September 21, 2024 9 :15am Drug rash September 21, 2024 9 :15am Insomnia October 08, 2024 5:06pm Paroxysmal A-fib October 08, 2024 5:06pm Multiple premature ventricular complexes October 08, 2024 5:06pm Breast cancer of lower-inner quadrant of right female breast October 27, 2024 1:32pm Chief Complaint Admit Date 12WKS LABS December 14, 2024 1:5 8pm ONC/HEM December 14, 2024 2:1 5pm LEFT KNEE March 10, 2025 1:40 pm Reason for Visit Admit Date Breast cancer of lower-inner quadrant of right female breast December 14, 2024 1:58pm Osteopenia December 14, 2024 1:5 8pm Anxiety as acute reaction to gross stres s December 14, 2024 2:15pm Encounter for chemotherapy management Ap ril 2024 2:15pm Encounter for education December 14, 2024 2:15pm Rash December 14, 2024 2:1 5pm Urinary frequency December 14, 2024 2:1 5pm Breast cancer of lower-inner quadrant of right female breast December 14, 2024 2:15pm Osteopenia December 14, 2024 2:1 5pm Chest pressure December 14, 2024 2:1 5pm Drug rash December 14, 2024 2:1 5pm Left knee DJD March 10, 2025 1:40 pm Chief Complaint Admit Date 12WKS LABS December 14, 2024 1:5 8pm ONC/HEM December 14, 2024 2:1 5pm LEFT KNEE March 10, 2025 1:40 pm ESTABLISH March 12, 2025 11:0 7am Additional Source Comments INFORMATION SOURCE (unrecogn ized section and content) DATE CREATED AUTHOR 03/17/2018 [facility] DATE CREATED AUTHOR AUTHOR'S ORGANIZ ATION 03/17/2018 [facility] DATE CREATED AUTHOR AUTHOR'S ORGANIZ ATION 05/30/2018 [facility] DATE CREATED AUTHOR AUTHOR'S ORGANIZ ATION 06/10/2020 [facility] DATE CREATED AUTHOR AUTHOR'S ORGANIZ ATION 04/25/2021 [facility] DATE CREATED AUTHOR AUTHOR'S ORGANIZ ATION 04/19/2024 [facility] DATE CREATED AUTHOR AUTHOR'S ORGANIZ ATION 03/11/2025 [facility] DATE CREATED AUTHOR AUTHOR'S ORGANIZ ATION 03/13/2025 [facility] Goals (unrecognized section and content) Goals may be documented in a n alternate sectionGoals may be documented in an alternate sectionGoals may be documented in an alternate sectionGoals may be documented in an alternate sectionGoals may be documented in an alternate sectionGoals may be documented in an alternate sectionGoals may be documented in an alternate sectionGoals may be documented in an alternate sectionGoals may be documented in an alternate sectionGoals may be documented in an alternate sectionGoals may be documented in an alternate sectionGoals may be documented in an alternate sectionGoals may be documented in an alternate sectionGoals may be documented in an alternate section Care Teams (unrecognized sec tion and content) Team Status: Active Member Role Status Dates Dr. Ashley Luna MD Primary Care Provider Active Team Status: Inactive Member Role Status Dates Loan Dias PULLER OUT, PULLER OUT-C Primary Care Provider Active Dr. João Kong DO Attending Provider Active Team Status: Inactive Member Role Status Dates [employer] PULLER OUT, PULLER OUT-C Primary Care Provider, Referr ing Provider Active Dr. Antonia Escalante MD Attending Provider Active Team Status: Inactive Member Role Status Dates Loan Di[employer] PULLER OUT, PULLER OUT-C Primary Care Provider, Referr ing Provider Active Ashli Rosado PA, PA Attending Provider Active Team Status: Inactive Member Role Status Dates [employer] Di[employer] PULLER OUT, PULLER OUT-C Primary Care Provider, Referr ing Provider Active Dr. Raymond Lagos DO Attending Provider Active Team Status: Inactive Member Role Status Dates Loan Di[employer] PULLER OUT, PULLER OUT-C Primary Care Provider Active Dr. Nico Hook MD Attending Provider Active Team Status: Active Member Role Status Dates Dr. Raymond Lagos DO Attending Provider, Other Prov ider Active Dr. Ashley Luna MD Primary Care Provider, Referrin g Provider Active Team Status: Inactive Member Role Status Dates Loan Dias NP, PULLER OUT-C Primary Care Pr ovider, Attending Provider, Referring Provider Active Team Status: Active Member Role Status Dates Dr. Antonia Escalante MD Attending Provider Active Dr. Yogesh Haque MD Referring Provider Active Dr. João Kong DO Other Provider Active [employer] PULLER OUT, PULLER OUT-C Primary Care Provider Active Team Status: Inactive Member Role Status Dates [employer] PULLER OUT, PULLER OUT-C Primary Care Provider Active Ashli Rosado PA, PA Attending Provider Active Team Status: Inactive Member Role Status Dates [employer] PULLER OUT, PULLER OUT-C Primary Care Provider Active Dr. Raymond Lagos DO Attending Provider, Referring Provider Active Team Status: Inactive Member Role Status Dates [employer] PULLER OUT, PULLER OUT-C Primary Care Provider Active Dr. Antonia Escalante MD Attending Provider, Referrin g Provider Active Team Status: Inactive Member Role Status Dates Dr. Raymond Lagos DO Attending Provider Active Dr. Ashley Luna MD Primary Care Provider, Referrin g Provider Active Team Status: Active Member Role Status Dates [employer] PULLER OUT, PULLER OUT-C Primary Care Provider Active Team Status: Inactive Member Role Status Dates Loan Di[employer] PULLER OUT, PULLER OUT-C Primary Care Provider, Referr ing Provider Active Dr. João Kong DO Attending Provider Active Team Status: Inactive Member Role Status Dates Loan Di[employer] PULLER OUT, PULLER OUT-C Primary Care Provider, Referr ing Provider Active Verónicaaruna Lopez PULLER OUT, PULLER OUT-C Attending Provider Active Team Status: Inactive Member Role Status Dates Loan Di[employer] PULLER OUT, PULLER OUT-C Primary Care Provider, Referr ing Provider Active Dr. Nico Hook MD Attending Provider Active Team Status: Active Member Role Status Dates Loan Di[employer] PULLER OUT, PULLER OUT-C Primary Care Provider Active Lisa Harper Attending Provider Active Team Status: Active Member Role Status Dates Loan Di[employer] PULLER OUT, PULLER OUT-C Primary Care Provider Active Dr. Nico Hook MD Attending Provider Active Team Status: Inactive Member Role Status Dates [employer] Di[employer] PULLER OUT, PULLER OUT-C Primary Care Provider Active Dr. Nico Hook MD Attending Provider, Referring Pro vider Active Team Status: Inactive Member Role Status Dates Loan Di[employer] PULLER OUT, PULLER OUT-C Primary Care Provider Active Verónica Lopez PULLER OUT, PULLER OUT-C Attending Provider, Referring Provider Active Team Status: Inactive Member Role Status Dates Loan Di[employer] PULLER OUT, PULLER OUT-C Primary Care Provider, Referr ing Provider Active Dr. Dia Tobin MD Attending Provider Active Team Status: Inactive Member Role Status Dates Loan Di[employer] PULLER OUT, PULLER OUT-C Primary Care Provider Active Dr. Dia Tobin MD Attending Provider, Referring Provider Active Team Status: Inactive Member Role Status Dates [employer] Di[employer] PULLER OUT, PULLER OUT-C Primary Care Provider, Attend ing Provider Active Team Status: Inactive Member Role Status Dates Loan Di[employer] PULLER OUT, PULLER OUT-C Primary Care Provider Active Dr. Matthew Fajardo MD Emergency Provider Active Team Status: Inactive Member Role Status Dates [employer] PULLER OUT, PULLER OUT-C Primary Care Provider Active Dr. Matthew Fajardo MD Attending Provider, Emergency Pro vider Active Team Status: Inactive Member Role Status Dates Loan Di[employer] PULLER OUT, PULLER OUT-C Primary Care Provider Active Dr. Wu Augustine MD Emergency Provider Active Supervisor [employer] Relationship Specialty Start Date End Date Loan Dias, ASSISTANT GENERAL MANAGER.[employer] [address] [facility] [phone] PCP - General Family Medicine 05/18/17 Supervisor [employer] Relationship Specialty Start Date End Date Loan Dias, ASSISTANT GENERAL MANAGER.[employer] [address] [place], [place] [phone] PCP - General Family Medicine 05/18/17 Supervisor [employer] Cle[employer] Relationship Specialty Start Date End Date Loan Dias, ASSISTANT GENERAL MANAGER.[employer] [address] [facility], [place] [phone] PCP - General Family Medicine 05/18/17 Supervisor [employer] Cleaning Relationship Specialty Start Date End Date Loan Dias, ASSISTANT GENERAL MANAGER.[employer] [address] [facility] [place] [address] PCP - General Family Medicine 05/18/17 Supervisor [employer] Cleaning Relationship Specialty Start Date End Date Loan Dias, ASSISTANT GENERAL MANAGER.[employer] [address] [place], [place] [phone] PCP - General Family Medicine 05/18/17 Supervisor [employer] Cleaning Relationship Specialty Start Date End Date Loan Dias, ASSISTANT GENERAL MANAGER.[employer] [address] [place], [place] [phone] PCP - General Family Medicine 05/18/17 Supervisor [employer] Cleaning Relationship Specialty Start Date End Date Loan Di[employer], ASSISTANT GENERAL MANAGER.[employer] [address] [place], [place] [phone] PCP - General Family Medicine 05/18/17 Supervisor Tank Cleaning Relationship Specialty Start Date End Date Loan Dias, ASSISTANT GENERAL MANAGER.[employer] [address] [place] [address] PCP - General Family Medicine 05/18/17 Supervisor Tank Cleaning Relationship Specialty Start Date End Date Loan Dias, ASSISTANT GENERAL MANAGER.[employer] [address] [place] [address] PCP - General Family Medicine 05/18/17 Supervisor Tank Cleaning Relationship Specialty Start Date End Date Loan Dias, ASSISTANT GENERAL MANAGER.[employer] [address] [place] [address] PCP - General Family Medicine 05/18/17 Supervisor Tank Cleaning Relationship Specialty Start Date End Date Loan Dias, ASSISTANT GENERAL MANAGER.[employer] [address] [facility] [place] [address] PCP - General Family Medicine 05/18/17 Supervisor Tank Cleaning Relationship Specialty Start Date End Date Loan Dias, ASSISTANT GENERAL MANAGER.[employer] [address] [facility] [place] [address] PCP - General Family Medicine 05/18/17 Supervisor Tank Cleaning Relationship Specialty Start Date End Date Loan Dias, ASSISTANT GENERAL MANAGER.[employer] [address] [place] [address] PCP - General Family Medicine 05/18/17 Supervisor Tank Cleaning Relationship Specialty Start Date End Date Loan Dias, ASSISTANT GENERAL MANAGER.[employer] [address] [place] [address] PCP - General Family Medicine 05/18/17 Supervisor Tank Cleaning Relationship Specialty Start Date End Date Loan Di[employer], ASSISTANT GENERAL MANAGER.[employer] [address] [place] [address] PCP - General Family Medicine 05/18/17 Supervisor Tank Cleaning Relationship Specialty Start Date End Date Loan Di[employer], ASSISTANT GENERAL MANAGER.[employer] [address] [place], [place] [phone] PCP - General Family Medicine 05/18/17 Supervisor [employer] Cleaning Relationship Specialty Start Date End Date Loan Di[employer], ASSISTANT GENERAL MANAGER.[employer] [address] [place], [place] [phone] PCP - General Family Medicine 05/18/17 Team Status: Inactive Member Role Status Dates Loan Di[employer] PULLER OUT, PULLER OUT-C Primary Care Provider Active Start: August 31, 2024 End: August 31, 2024 Loan [employer] PULLER OUT, PULLER OUT-C Referring Provider Active Start: August 31, 2024 End: August 31, 2024 Dr. Raymond Lagos DO Attending Provider Active Start: August 31, 2024 End: August 31, 2024 Team Status: Inactive Member Role Status Dates [employer] PULLER OUT, PULLER OUT-C Primary Care Provider Active Start: August 31, 2024 End: August 31, 2024 Dr. Nico Hook MD Attending Provider Active S tart: August 31, 2024 End: August 31, 2024 Team Status: Inactive Member Role Status Dates [employer] PULLER OUT, PULLER OUT-C Primary Care Provider Active Start: September 21, 2024 End: September 21, 2024 Loan Dias PULLER OUT, PULLER OUT-C Referring Provider Active Start: September 21, 2024 End: September 21, 2024 Verónica Lopez PULLER OUT, PULLER OUT-C Attending Provider Active Start: September 21, 2024 End: September 21, 2024 Team Status: Active Member Role Status Dates Dr. Antonia Escalante MD Attending Provider Active Start: September 21, 2024 Dr. Yogesh Haque MD Referring Provider Active Start: September 21, 2024 Dr. João Kong DO Other Provider Active Sta rt: September 21, 2024 [employer] PULLER OUT, PULLER OUT-C Primary Care Provider Active Start: September 21, 2024 Team Status: Inactive Member Role Status Dates [employer] PULLER OUT, PULLER OUT-C Primary Care Provider Active Start: October 08, 2024 End: October 08, 2024 Loan [employer] PULLER OUT, PULLER OUT-C Attending Provider Active Start: October 08, 2024 End: October 08, 2024 Loan Di[employer] PULLER OUT, PULLER OUT-C Referring Provider Active Start: October 08, 2024 End: October 08, 2024 Team Status: Inactive Member Role Status Dates Loan [employer] PULLER OUT, PULLER OUT-C Primary Care Provider Active Start: October 27, 2024 End: October 27, 2024 Dr. Mariajose Barclay MD Attending Provider Active Start: October 27, 2024 End: October 27, 2024 Dr. Mariajose Barclay MD Referring Provider Active Start: October 27, 2024 End: October 27, 2024 Team Status: Inactive Member Role Status Dates Loan Di[employer] PULLER OUT, PULLER OUT-C Primary Care Provider Active Start: October 27, 2024 End: October 27, 2024 Loan Dias PULLER OUT, PULLER OUT-C Referring Provider Active Start: October 27, 2024 End: October 27, 2024 Dr. João Kong DO Attending Provider Active Start: October 27, 2024 End: October 27, 2024 Team Status: Active Member Role Status Dates Loan Di[employer] PULLER OUT, PULLER OUT-C Primary Care Provider Active Start: October 31, 2024 Dr. Antonia Escalante MD Attending Provider Active Start: October 31, 2024 Dr. Antonia Escalante MD Referring Provider Active Start: October 31, 2024 Team Status: Active Member Role Status Dates Loan Di[employer] PULLER OUT, PULLER OUT-C Primary Care Provider Active Start: November 03, 2024 Dr. Antonia Escalante MD Attending Provider Active Start: November 03, 2024 Dr. Antonia Escalante MD Referring Provider Active Start: November 03, 2024 Team Status: Inactive Member Role Status Dates Loan Di[employer] PULLER OUT, PULLER OUT-C Primary Care Provider Active Start: October 31, 2024 End: October 31, 2024 Dr. Antonia Escalante MD Attending Provider Active Start: October 31, 2024 End: October 31, 2024 Dr. Antonia Escalante MD Referring Provider Active Start: October 31, 2024 End: October 31, 2024 Team Status: Inactive Member Role Status Dates Loan Di[employer] PULLER OUT, PULLER OUT-C Primary Care Provider Active Start: November 03, 2024 End: November 03, 2024 Dr. Antonia Escalante MD Attending Provider Active Start: November 03, 2024 End: November 03, 2024 Dr. Antonia Escalante MD Referring Provider Active Start: November 03, 2024 End: November 03, 2024 Supervisor [employer] Cle[employer] Relationship Specialty Start Date End Date Loan Dias, ASSISTANT GENERAL MANAGER.[employer] [address] [place] [id number] PCP - General Family Medicine 05/18/17 Supervisor [employer] Cle[employer] Relationship Specialty Start Date End Date Loan Dias, ASSISTANT GENERAL MANAGER.[employer] [address] [place] [address] PCP - General Family Medicine 05/18/17 Team Status: Active Member Role/Relationship Status Dates Loan Dias PULLER OUT, PULLER OUT-C Primary Care Provider Active Team Status: Inactive Member Role/Relationship Status Dates Loan Dias PULLER OUT, PULLER OUT-C Primary Care Provider Active Start: December 14, 2024 End: December 14, 2024 Loan Dias PULLER OUT, PULLER OUT-C Referring Provider Active Start: December 14, 2024 End: December 14, 2024 Verónica Lopez PULLER OUT, PULLER OUT-C Attending Provider Active Start: December 14, 2024 End: December 14, 2024 Team Status: Active Member Role/Relationship Status Dates Dr. Antonia Escalante MD Attending Provider Active Start: December 14, 2024 Dr. Yogesh Haque MD Referring Provider Active Start: December 14, 2024 Dr. João Kong DO Other Provider Active Sta rt: December 14, 2024 Loan Di[employer] PULLER OUT, PULLER OUT-C Primary Care Provider Active Start: December 14, 2024 Team Status: Inactive Member Role/Relationship Status Dates Loan Garciason PULLER OUT, PULLER OUT-C Primary Care Provider Active Start: March 10, 2025 End: March 10, 2025 Loan Dias PULLER OUT, PULLER OUT-C Referring Provider Active Start: March 10, 2025 End: March 10, 2025 Dr. Raymond Lagos DO Attending Provider Active Start: March 10, 2025 End: March 10, 2025 Team Status: Inactive Member Role/Relationship Status Dates Loan Di[employer] PULLER OUT, PULLER OUT-C Primary Care Provider Active Start: March 12, 2025 End: March 12, 2025 Loan Di[employer] PULLER OUT, PULLER OUT-C Referring Provider Active Start: March 12, 2025 End: March 12, 2025 Dr. Hossein Josue MD Attending Provider Active Start: March 12, 2025 End: March 12, 2025 Source Comments (unrecognize d section and content) In the event this informatio n is protected by the Federal Confidentiality of Alcohol and Drug Abuse Patient Records regulations: The Federal rules restrict any use of the information to criminally investigate or prosecute any alcohol or drug abuse patient.[facility] the event this information is protected by the Federal Confidentiality of Alcohol and Drug Abuse Patient Records regulations: The Federal rules restrict any use of the information to criminally investigate or prosecute any alcohol or drug abuse patient.[facility] Hospital[facility] the event this information is protected by the Federal Confidentiality of Alcohol and Drug Abuse Patient Records regulations: The Federal rules restrict any use of the information to criminally investigate or prosecute any alcohol or drug abuse patient.[facility] the event this information is protected by the Federal Confidentiality of Alcohol and Drug Abuse Patient Records regulations: The Federal rules restrict any use of the information to criminally investigate or prosecute any alcohol or drug abuse patient.[facility] Hospital[facility] the event this information is protected by the Federal Confidentiality of Alcohol and Drug Abuse Patient Records regulations: The Federal rules restrict any use of the information to criminally investigate or prosecute any alcohol or drug abuse patient.[facility] HospitalIn the event this information is protected by the Federal Confidentiality of Alcohol and Drug Abuse Patient Records regulations: The Federal rules restrict any use of the information to criminally investigate or prosecute any alcohol or drug abuse patient.[facility] HospitalIn the event this information is protected by the Federal Confidentiality of Alcohol and Drug Abuse Patient Records regulations: The Federal rules restrict any use of the information to criminally investigate or prosecute any alcohol or drug abuse patient.[facility] HospitalIn the event this information is protected by the Federal Confidentiality of Alcohol and Drug Abuse Patient Records regulations: The Federal rules restrict any use of the information to criminally investigate or prosecute any alcohol or drug abuse patient.[facility] HospitalIn the event this information is protected by the Federal Confidentiality of Alcohol and Drug Abuse Patient Records regulations: The Federal rules restrict any use of the information to criminally investigate or prosecute any alcohol or drug abuse patient.[facility] HospitalIn the event this information is protected by the Federal Confidentiality of Alcohol and Drug Abuse Patient Records regulations: The Federal rules restrict any use of the information to criminally investigate or prosecute any alcohol or drug abuse patient.[facility] HospitalIn the event this information is protected by the Federal Confidentiality of Alcohol and Drug Abuse Patient Records regulations: The Federal rules restrict any use of the information to criminally investigate or prosecute any alcohol or drug abuse patient.[facility] HospitalIn the event this information is protected by the Federal Confidentiality of Alcohol and Drug Abuse Patient Records regulations: The Federal rules restrict any use of the information to criminally investigate or prosecute any alcohol or drug abuse patient.[facility] HospitalIn the event this information is protected by the Federal Confidentiality of Alcohol and Drug Abuse Patient Records regulations: The Federal rules restrict any use of the information to criminally investigate or prosecute any alcohol or drug abuse patient.[facility] HospitalIn the event this information is protected by the Federal Confidentiality of Alcohol and Drug Abuse Patient Records regulations: The Federal rules restrict any use of the information to criminally investigate or prosecute any alcohol or drug abuse patient.[facility] HospitalIn the event this information is protected by the Federal Confidentiality of Alcohol and Drug Abuse Patient Records regulations: The Federal rules restrict any use of the information to criminally investigate or prosecute any alcohol or drug abuse patient.[facility] HospitalIn the event this information is protected by the Federal Confidentiality of Alcohol and Drug Abuse Patient Records regulations: The Federal rules restrict any use of the information to criminally investigate or prosecute any alcohol or drug abuse patient.[facility] HospitalIn the event this information is protected by the Federal Confidentiality of Alcohol and Drug Abuse Patient Records regulations: The Federal rules restrict any use of the information to criminally investigate or prosecute any alcohol or drug abuse patient.[facility] HospitalIn the event this information is protected by the Federal Confidentiality of Alcohol and Drug Abuse Patient Records regulations: The Federal rules restrict any use of the information to criminally investigate or prosecute any alcohol or drug abuse patient.[facility] HospitalIn the event this information is protected by the Federal Confidentiality of Alcohol and Drug Abuse Patient Records regulations: The Federal rules restrict any use of the information to criminally investigate or prosecute any alcohol or drug abuse patient.[facility] HospitalIn the event this information is protected by the Federal Confidentiality of Alcohol and Drug Abuse Patient Records regulations: The Federal rules restrict any use of the information to criminally investigate or prosecute any alcohol or drug abuse patient.[facility] HospitalIn the event this information is protected by the Federal Confidentiality of Alcohol and Drug Abuse Patient Records regulations: The Federal rules restrict any use of the information to criminally investigate or prosecute any alcohol or drug abuse patient.[facility] HospitalIn the event this information is protected by the Federal Confidentiality of Alcohol and Drug Abuse Patient Records regulations: The Federal rules restrict any use of the information to criminally investigate or prosecute any alcohol or drug abuse patient.[facility] HospitalIn the event this information is protected by the Federal Confidentiality of Alcohol and Drug Abuse Patient Records regulations: The Federal rules restrict any use of the information to criminally investigate or prosecute any alcohol or drug abuse patient.[facility] HospitalIn the event this information is protected by the Federal Confidentiality of Alcohol and Drug Abuse Patient Records regulations: The Federal rules restrict any use of the information to criminally investigate or prosecute any alcohol or drug abuse patient.[facility] HospitalIn the event this information is protected by the Federal Confidentiality of Alcohol and Drug Abuse Patient Records regulations: The Federal rules restrict any use of the information to criminally investigate or prosecute any alcohol or drug abuse patient.[facility] HospitalIn the event this information is protected by the Federal Confidentiality of Alcohol and Drug Abuse Patient Records regulations: The Federal rules restrict any use of the information to criminally investigate or prosecute any alcohol or drug abuse patient.[facility] HospitalIn the event this information is protected by the Federal Confidentiality of Alcohol and Drug Abuse Patient Records regulations: The Federal rules restrict any use of the information to criminally investigate or prosecute any alcohol or drug abuse patient.[facility] HospitalIn the event this information is protected by the Federal Confidentiality of Alcohol and Drug Abuse Patient Records regulations: The Federal rules restrict any use of the information to criminally investigate or prosecute any alcohol or drug abuse patient.[facility] HospitalIn the event this information is protected by the Federal Confidentiality of Alcohol and Drug Abuse Patient Records regulations: The Federal rules restrict any use of the information to criminally investigate or prosecute any alcohol or drug abuse patient.[facility] HospitalIn the event this information is protected by the Federal Confidentiality of Alcohol and Drug Abuse Patient Records regulations: The Federal rules restrict any use of the information to criminally investigate or prosecute any alcohol or drug abuse patient.[facility] HospitalIn the event this information is protected by the Federal Confidentiality of Alcohol and Drug Abuse Patient Records regulations: The Federal rules restrict any use of the information to criminally investigate or prosecute any alcohol or drug abuse patient.[facility] Reason for Visit (unrecogniz ed section and content) Reason Onset Date Comments Stroke discharge callback 04/29/2024 Reason Comments CARD New Patient Consult PULLER OUT REF FOR PFO Reason Comments Preparations For Procedures Reason Comments Hospital Discharge Reason Comments Cardiac Clearance Reason Onset Date Comments Modified [place] Score 07/08/2024 Reason Comments Patient Question Reason Comments Follow Up Specialty Diagnoses / Procedures Referred By Contact Referred To Contact Cerebrovascular / NEUROSURGERY Diagnoses 6 week follow up Procedures EST NI PATIENT Ling Harding APRN.[facility] [address] [place] [address] Ling Harding APRN.[facility] [address] [place] [address] Referral ID Status Reason Start Date Expiration Date Visits Re quested Visits Authorized [id number] Closed 07/27/2024 10/25/2024 1 1 Reason Comments Patient Question Specialty Diagnoses / Procedures Referred By Jennifer t Referred To Contact Diagnoses PFO (patent foramen ovale) PFO (patent foramen ovale) [Q21.12] Procedures PRQ TCAT CLSR CGEN INTRATRL COMUNICAJ W/IMPLT INTRACARD ECHOCARD W/THER/DX IVNTJ INCL IMG S&I PERCUTANEOUS TRANSCATHETER 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 INTRACARDIAC ECHOCARDIOGRAPHY DURING THERAPEUTIC/DIAGNOSTIC INTERVENTION W/ IMAGING SUPERVISION/INTERPRETATION [facility] [employer] [address] [place] [address] Referral ID Status Reason Start Date Expiration Date Visits Re quested Visits Authorized [id number] 1 1 Reason Comments Appointment Office Correspondent - Other Reason Comments Office Correspondent - Other Reason Onset Date Comments Appointment 09/30/2024 Reason Comments CARD Follow Up 1 Month Follow up to pfo Reason Comments Cardiology Follow Up - Generic Discuss m onitor results/ppm implant Reason Comments Wound Check Reason Comments New Pain Scheduled Active and Recently Administ ered Medications (unrecognized section and content) Medication Order 09/08/2024 09/09/2024 09/10/2024 ceFAZolin iv piggyback 1 g in D5W (iso-osmotic) 50 mL (ANCEF) (COMPLETED) 1 g, INTRAVENOUS, at 100 mL/hr, Administer over 30 Minutes, ONCE, 1 dose, On Frida 09/10/24 at 1000, Tube # 315 JOHNSON product = Refrigerate. B. Navarro DUPLEX product = Room Temp., Antimicrobial indication: Prophylaxis, Preprocedure 1100 (New Bag/Syring e/Bottle - Provider: Alice Santos RN) heparin 1,000 Units in D5W 250 mL 1,000 Units, INTRA-ARTERIAL, ONE TIME, 1 dose, Starting on Frida 09/10/24 at 1015, Until Sat09/11/24 at 0302, NOW (EMERGENT PROCEDURE) FOR FITNESS AND WELLNESS DIRECTOR USE ONLY, Intraprocedure heparin 3,000 Units in NaCl 0.9% 500 mL irrigation 3,000 Units, IRRIGATION, ONE TIME, 1 dose, Starting on Frida 09/10/24 at 1015, Until Sat09/11/24 at 0302, NOW (EMERGENT PROCEDURE) FOR FITNESS AND WELLNESS DIRECTOR USE ONLY For Irrigation Use Only, Intraprocedure PRN Medication Order 09/08/2024 09/09/2024 09/10/2024 fentaNYL 50 mcg/mL injection (SUBLIMAZE) (COMPLETED) INTRAVENOUS, X (OR/PROCEDURE) PRN, Starting on Frida 09/10/24 at 1123, Until Frida 09/10/24 at 1150, Intraprocedure 1123 (Given - Provid er: Alice Santos RN)1140 (Given - Provider: Alice Santos RN)1150 (Given - Provider: Alice Santos RN) heparin 1,000 unit/mL injection (COMPLETED) X (OR/PROCEDURE) PRN, Starting on Frida 09/10/24 at 1137, Until Frida 09/10/24 at 1137, Intraprocedure 1137 (Given - Provid er: Alice Santos RN) midazolam (PF) injection (VERSED) (COMPLETED) INTRAVENOUS, X (OR/PROCEDURE) PRN, Starting on Frida 09/10/24 at 1123, Until Frida 09/10/24 at 1150, Intraprocedure 1123 (Given - Provid er: Alice Santos RN)1140 (Given - Provider: Alice Santos RN)1150 (Given - Provider: Alice Santos RN) NaCl 0.9% iv flush bag 20 mL, INTRAVENOUS, NEEDED, Starting on Frida 09/10/24 at 1254, Until Sat09/11/24 at 0302, See admin instructions, If no compatible primary is already running, infuse NaCl 0.9% as primary to flush tubing after non-chemotherapy, non-immunotherapy intermittent infusions. Administer at the same rate as intermittent infusion. Select the Flush Bag file on smart pump. perflutren lipid microspheres 1.1 mg/mL 1.3 mL injection (DEFINITY)(Linked Group 1) 1.3 mL, INTRAVENOUS, DIRECTED NEEDED, 1 dose, Starting on Frida 09/10/24 at 1254, Until Sat09/11/24 at 0302, Per Protocol - for use during ECHO procedure only, Perflutren must be activated prior to administration. Once activated: 1. Diluted IV Bolus: Dilute 1.3 mL of Definity with 8.7 mL of preservative-free saline 2. Undiluted IV Bolus: Administer undiluted Definity followed by a preservative-free 10 mL saline flush. sodium chloride 0.9 % (flush) 2-10 mL (BD POSIFLUSH)(Linked Group 1) 2-10 mL, INTRAVENOUS, DIRECTED NEEDED, 1 dose, Starting on Frida 09/10/24 at 1254, Until Sat09/11/24 at 0302, Per Protocol - for use during ECHO procedure only Linked Groups Order Group 1: ECHO (COMPLETED) ONCE, On Frida 09/10/24 at 1300, For 1 occurrence, Routine And sodium chloride 0.9 % (flush) 2-10 mL (BD POSIFLUSH)Jump to med 2-10 mL, INTRAVENOUS, DIRECTED NEEDED, 1 dose, Starting on Frida 09/10/24 at 1254, Until Sat09/11/24 at 0302, Per Protocol - for use during ECHO procedure only And perflutren lipid microspheres 1.1 mg/mL 1.3 mL injection (DEFINITY)Jump to med 1.3 mL, INTRAVENOUS, DIRECTED NEEDED, 1 dose, Starting on Frida 09/10/24 at 1254, Until 09/11/24 at 0302, Per Protocol - for use during ECHO procedure only, Perflutren must be activated prior to administration. Once activated: 1. Diluted IV Bolus: Dilute 1.3 mL of Definity with 8.7 mL of preservative-free saline 2. Undiluted IV Bolus: Administer undiluted Definity followed by a preservative-free 10 mL saline flush. FOR RECORDS PERTAINING TO PATIENTS WHO ARE OR HAVE BEEN ENROLLED IN A CHEMICAL DEPENDENCY/SUBSTANCEABUSE PROGRAM, SOME INFORMATION MAY BE OMITTED. This clinical summary was aggregated from multiple sources. Caution should be exercised in using it in the provision of clinical care. This summary normalizes information from multiple sources, and as a consequence, information in this document may materially change the coding, format and clinical context of patient data. In addition, data may be omitted in some cases. CLINICAL DECISIONS SHOULD BE BASED ON THE PRIMARY CLINICAL RECORDS. [employer] [facility]. provides no warranty or guarantee of the accuracy or completeness of information in this document.
[2025-04-04 01:52] LABS: Anion Gap 14 (5-15); BUN 18 mg/dL (4-19); BUN/Creat Ratio 20.6 RATIO (10-20); Calcium,Total 9.6 mg/dL (7.6-11.0); Carbon Dioxide 24.3 mmol/L (21.0-32.0); Chloride 105 mmol/L (98-108); Estimated Creatinine Clearance 59.54 ml/min (50-250); Glucose 103 mg/dL (70-99); Potassium 3.7 mmol/L (3.3-5.1); Troponin T High Sensitivity 8 ng/L (<=14)
[2025-04-04 02:00] VITALS: BP 127/90; PULSE 73; RESP 20; O2SAT 95
[2025-04-04 03:00] VITALS: BP 129/90; PULSE 69; RESP 17; O2SAT 98
[2025-04-04 03:51] LABS: Troponin T High Sens 2 HR 8 ng/L (<=14)
[2025-04-04 03:57] VITALS: BP 129/90; PULSE 70; RESP 12; TEMP 36.6; O2SAT 96
== END 2025-04-04 04:12 | disposition home or self-care (01) ==
PROVIDERS: Emergency Provider Emergency Medicine; PCP Nurse Practitioner; Visit Provider Emergency Medicine
DX: R07.89 Other chest pain (principal); I47.9 Paroxysmal tachycardia, unspecified; I48.0 Paroxysmal atrial fibrillation; I10 Essential (primary) hypertension; Z79.01 Long term (current) use of anticoagulants; Z85.3 Personal history of malignant neoplasm of breast; Z79.82 Long term (current) use of aspirin; K21.9 Gastro-esophageal reflux disease without esophagitis; Z79.899 Other long term (current) drug therapy
CPT/HCPCS: 71045; 80048; 84484; 85025; 93005; 99285; A4216

== ENCOUNTER → 2025-05-11 | Outpatient (CLI) | payer MEDICARE, MEDICAID, SELFPAY ==
[2022-01-25 19:55] VITALS: BMI 31.8
--- OUTSIDE RECORDS SUMMARY | 2025-05-11 05:56 | XMS RPT_ITS | CCD ---
Author Organization [facility] Care Team Providers Care Employee Benefits Specialist Name Role Phone DIAS, LOAN L Unavailable Unavailable DIAS, LOAN L Unavailable Unavailable DIAS, LOAN L Unavailable Unavailable KHAYATA, MOHAMED Unavailable Unavailable ANDREA, RAVKIRAN (RES) Unavailable Unavaila ble RIO BARR Unavailable Unavailable REMELANY ROSSY (PT) Unavailable Unavailable ANDREA, RAVKIRAN (RES) Unavailable Unavaila ble RECARMELAH ROSSY (PT) Unavailable Unavailable ANDREA, RAVKIRAN (RES) Unavailable Unavaila ble Dias DRAWING TENDER, DRAWING TENDER-C Loan Primary Care Provider Arun DRAWING TENDER, DRAWING TENDER-C Loan Referring Provider [phone] Dr. Antonia Escalante Attending Provider Dr. João Kong Attending Provider [phone] Dominick Villalpando Attending Provider [phone] Dr. Antonia Escalante Referring Provider Dr. Nico Hook Attending Provider Arun DRAWING TENDER, DRAWING TENDER-C Loan Primary Care Provider Arun DRAWING TENDER, DRAWING TENDER-C Loan Referring Provider [phone] John DRAWING TENDER, DRAWING TENDER-C Verónica Attending Provider [phone] Dr. Raymond Lagos Attending Provider [phone] João Kong Attending Provider Gilma Hickey Attending Provider Unavailable Dr. Dia Tobin Attending Provider Dr. Dia Tobin Other Provider Arun DRAWING TENDER, DRAWING TENDER-C Loan Primary Care Provider Dias DRAWING TENDER, DRAWING TENDER-C Loan Referring Provider Dr. Antonia Escalante Attending Provider Dr. João Kong Attending Provider Dias DRAWING TENDER, DRAWING TENDER-C Loan Primary Care Provider Dias DRAWING TENDER, DRAWING TENDER-C Loan Referring Provider John DRAWING TENDER, DRAWING TENDER-C Verónica Attending Provider Lisa Harper [facility] Attending Provider Dias DRAWING TENDER, DRAWING TENDER-C Lona Primary Care Provider Dias DRAWING TENDER, DRAWING TENDER-C Loan Referring Provider Dr. Antonia Escalante Attending Provider Dias DRAWING TENDER, DRAWING TENDER-C Loan Primary Care Provider Dias DRAWING TENDER, DRAWING TENDER-C Loan Referring Provider John DRAWING TENDER, DRAWING TENDER-C Verónica Attending Provider Dr. Raymond Lagos Attending Provider Dr. Dia Tobin Attending Provider Dias DRAWING TENDER, DRAWING TENDER-C Loan Primary Care Provider Dr. João Kong Attending Provider Dias DRAWING TENDER, DRAWING TENDER-C Loan Referring Provider Dr. Raymond Lagos Attending Provider Dr. Nico Hook Attending Provider John DRAWING TENDER, DRAWING TENDER-C Verónica Attending Provider Ashlee ROY, KIRILL Mullins Attending Provider Dias DRAWING TENDER, DRAWING TENDER-C Loan Primary Care Provider Dias DRAWING TENDER, DRAWING TENDER-C Loan Referring Provider Dr. Raymond Lagos Attending Provider Dr. Nico Hook Attending Provider Dr. Antonia Escalante Attending Provider Arun DRAWING TENDER, DRAWING TENDER-C Loan Primary Care Provider Dias DRAWING TENDER, DRAWING TENDER-C Loan Referring Provider Ashlee ROY, PA Ashli Mullins Attending Provider Dr. Raymond Lagos Attending Provider Dr. Nico Hook Attending Provider Dr. Antonia Escalante Attending Provider Dr. João Kong Attending Provider Dr. Raymond Lagos Other Provider Dr. Ashley Luna Primary Care Provider Dr. Ashley Luna Referring Provider Arun DRAWING TENDER, DRAWING TENDER-C Loan Primary Care Provider Idas DRAWING TENDER, DRAWING TENDER-C Loan Referring Provider Ashlee ROY, PA Ashli Mullins Attending Provider Arun ARTIST BLACKSMITH.SERVICE ORDER TAKER, Loan L Primary Care Provide r Dias DRAWING TENDER-C, Loan Primary Care Provider Arun DRAWING TENDER-C, Loan Referring Provider Dr. Raymond Lagos DO Attending Provider Dr. Nico Hook MD Attending Provider John DRAWING TENDER-C, Verónica Attending Provider Dr. Antonia Escalante MD Attending Provider Dr. Yogesh Haque MD Referring Provider Dr. João Kong DO Other Provider Arun DRAWING TENDER-C, Loan Attending Provider Dr. Mariajose Barclay MD Attending Provider Deny LEIVA, Dr. Billy Referring Provider Luann BRITTON, Dr. Moyer Attending Provider Ava LEIVA, Dr. Knight Referring Provider Dias DRAWING TENDER-C, Loan Primary Care Provider Arun DRAWING TENDER-C, Loan Referring Provider John DRAWING TENDER-C, Verónica Attending Provider Ava LEIVA, Dr. Knight Attending Provider Shabnam LEIVA, Dr. Zuñiga Referring Provider Dr. João Kong DO Other Provider Dr. Raymond Lagos DO Attending Provider Joselo LEIVA, Dr. Catalan Attending Provider Saloni LEIVA, Dr. Rivas Emergency Provider Dominick DRAWING TENDER-C, Radha Attending Provider DIAS, LOAN L Primary Care Unavailable VITEBSKIY, FRANCISCO ALEKSANDROVICH Referring Unavailable VITEBSKLizettY, FRANCISCO ALEKSANDROVICH Attending Unavailable VITEBSKIY, FRANCISCO ALEKSANDROVICH Admitting Unavailable VITEBSKIY, FRANCISCO ALEKSANDROVICH Consulting Unavailable AKIKO CRANE Attending Unavailable DIAS, LOAN L Primary Care Unavailable JESS CAST Referring Unavailable ICKES II, CAMI Admitting Unavailable DIAS, LOAN L Primary Care Unavailable KISHAN PIEDRA Referring Unavailable KISHAN PIEDRA Attending Unavailable CUTKISHAN SARMIENTO Admitting Unavailable DIAS, LOAN L Primary Care Unavailable YOKASTA ALVES Attending Unavailable MARLENY REYEZ Consulting Unavailable DAYANA CUELLAR Admitting Unavailable DIAS, LOAN L Primary Care Unavailable DIAS, LOAN L Primary Care Unavailable ANNAMARIA, YASSAR Referring Unavailable ANNAMARIA, YASSAR Attending Unavailable ANNAMARIA, YASSAR Admitting Unavailable DIAS, LOAN L Primary Care Unavailable MIKULA, LING Referring Unavailable MIKULA, LING Attending Unavailable DIAS, LOAN L Primary Care Unavailable DIAS, LOAN L Primary Care Unavailable JARRED SUH Attending Unavailabl e DIAS, LOAN L Primary Care Unavailable JARRED SUH Attending Unavailabl e CONKLE-LAGROURANDA Alvares Attending Unavaila ble DIAS, LOAN L Primary Care Unavailable DIAS, LOAN L Primary Care Unavailable DIAS, LOAN L Primary Care Unavailable KANAA'N, SMITH Referring Unavailable KANAA'N, SMITH Attending Unavailable KANAA'N, SMITH Admitting Unavailable DIAS, LOAN L Primary Care Unavailable SELF Referring Unavailable KANAA'N, SMITH Attending Unavailable DIAS, LOAN L Primary Care Unavailable FRANCISCO GORMAN Attending Unavailable CONKLE-LAGROUXRANDA Attending Unavaila ble DIAS, LOAN L Primary Care Unavailable DIAS, LOAN L Primary Care Unavailable KANAA'N, SMITH Referring Unavailable DIAS, LOAN L Primary Care Unavailable DIAS, LOAN L Primary Care Unavailable LING HARDING Attending Unavailable DIAS, LOAN L Primary Care Unavailable KANAA'N, SMITH Attending Unavailable Dias DRAWING TENDER-C, Loan Primary Care Provider Dias DRAWING TENDER-C, Loan Referring Provider [phone] Dr. Rob Guallpa MD Attending Provider Dias DRAWING TENDER-C, Loan Attending Provider Dr. Nico Hook MD Attending Provider João Kong Attending Unavailable Dias DRAWING TENDER, Loan Primary Care Unavailable Dias DRAWING TENDER, Loan Referring Unavailable John DRAWING TENDER, Verónica Attending Unavailable Dias DRAWING TENDER, Loan Primary Care Unavailable Dias DRAWING TENDER, Loan Referring Unavailable Dias DRAWING TENDER, Loan Primary Care Unavailable Nico Hook Attending Unavailable Dias DRAWING TENDER, Loan Primary Care Unavailable Dias DRAWING TENDER, Loan Referring Unavailable Ashli Raza Attending Unavail able Dias DRAWING TENDER, Loan Primary Care Unavailable Dias DRAWING TENDER, Loan Referring Unavailable Raymond Lagos Attending Unavailable Hossein Josue Attending Unavailable Dias DRAWING TENDER, Loan Primary Care Unavailable Dias DRAWING TENDER, Loan Referring Unavailable Dias DRAWING TENDER, Loan Primary Care Unavailable John DRAWING TENDER, Verónica Attending Unavailable Dias DRAWING TENDER, Loan Referring Unavailable Dias DRAWING TENDER, Loan Primary Care Unavailable Radha Tan Attending Unavailable John DRAWING TENDER, Verónica Attending Unavailable Dias DRAWING TENDER, Loan Primary Care Unavailable John DRAWING TENDER, Verónica Referring Unavailable Dia Tobin Attending Unavailable Dias DRAWING TENDER, Loan Primary Care Unavailable Dias DRAWING TENDER, Loan Referring Unavailable Dias DRAWING TENDER, Loan Primary Care Unavailable Isckarus, Mansour Referring Unavailable Isckarus, Mansour Attending Unavailable Dias DRAWING TENDER, Loan Primary Care Unavailable Isckarus, Mansour Referring Unavailable Isckarus, Mansour Attending Unavailable Dias DRAWING TENDER, Loan Primary Care Unavailable Deny Ayman Referring Unavailable Basallizett Ayman Attending Unavailable Dias DRAWING TENDER, Loan Primary Care Unavailable Rob Guallpa Attending Unavailable Dias DRAWING TENDER, Loan Primary Care Unavailable Ashlee PA, Ashli M Referring Unavail able Ashlee PA, Ashli M Attending Unavail able Dias DRAWING TENDER, Loan Primary Care Unavailable Ashlee PA, Ashli M Referring Unavail able Ashlee ROY, Ashli M Attending Unavail able João Kong Unavailable Dias DRAWING TENDER, Loan Primary Care Unavailable Isckarus, Mansour Attending Unavailable Yogesh Haque Referring Unavailable Dias DRAWING TENDER, Loan Primary Care Unavailable Dias DRAWING TENDER, Loan Referring Unavailable Raymond Lagos Attending Unavailable Dias DRAWING TENDER, Loan Primary Care Unavailable Nico Hook Attending Unavailable John DRAWING TENDER, Verónica Attending Unavailable Dias DRAWING TENDER, Loan Primary Care Unavailable Dias DRAWING TENDER, Loan Referring Unavailable Allergies Allergy Classification Reported Allergen(s) Allergy Type Date of Onset Reaction(s) Facility (20 sources) Adhesive Tape; Translations: [adhesive tape] Allergy to substance 2 Hives [facility] (20 sources) anastrozole Drug Allergy 2 joint pain, anxiety, hot flashes [facility] (20 sources) oxyCODONE Drug Allergy 2 [facility] (4 sources) Acetaminophen Drug Allergy 4 [facility] (4 sources) HYDROcodone Drug Allergy 4 [facility] (20 sources) Acetaminophen / oxyCODONE; Translations: [OXYCODONE-ACETAM INOPHEN] Drug Allergy 0 [facility] (20 sources) Adhesive Tape-Silicones; Translations: [ADHESIVE TAPE-SILICONES] Drug Allergy 0 [facility] (1 source) Acetaminophen Drug Allergy 5 [facility] (1 source) anastrozole Drug Allergy 5 [facility] (1 source) HYDROcodone Drug Allergy 5 [facility] (1 source) oxyCODONE Drug Allergy 5 [facility] Medications Current Medications Medication Drug Class(es) Dates Sig (Normalized) Sig (Original) apixaban 5 mg oral tablet (20 sources) Factor Xa Inhibitor Start: 09-30-2024 End: 10-23-2025 take 1 tablet by mouth twice daily Apixaban (Eliquis) 5 mg tablet Active 5 mg PO TWICE A DAY October 08, 2024 1:00am ascorbic acid 500 mg oral tablet (10 sources) Vitamin C take 1 tablet by mouth twice daily ascorbic acid, vitamin C, (VITAMIN C) 500 mg tablet Take 500 mg by mouth two times a day. Active aspirin 81 mg delayed release oral tablet (20 sources) Platelet Aggregation Inhibitor, Nonsteroidal Anti-inflammatory Drug Start: 04-24-2024 End: 06-09-2024 take 1 tablet by mouth once daily aspirin 81 mg chewable tablet 1 tablet by ORAL/FEEDING TUBE route once daily for 20 doses. 20 tablet 04/24/2024 06/09/2024 Discontinued (Course of therapy completed) Start: 07-18-2021 End: 04-08-2025 Aspirin (Corky Low Dose Aspi rin) 81 mg tablet,delayed release (DR/EC) Discontinued 81 mg PO DAILY July 18, 2021 1:00am April 08, 2025 9:27am End: 09-10-2024 take 81 mg by mouth once aspirin (ASPIR-81 ORAL) Take 81 mg by mouth one time only. 09/10/2024 Discontinued (Course of therapy completed) aspirin 81 mg ch ewable tablet aspirin 81 mg chewable tablet Suspended calcium acetate 667 mg oral tablet (5 sources) Start: 03-10-2025 take 1 tablet by mouth once Calcium Acetate 667 mg tablet Active 667 mg PO ONCE March 10, 2025 12:00am calcium ascorbate 500 mg oral tablet (5 sources) Start: 03-10-2025 take 1 tablet by mouth once daily Ascorbate Calcium (Vitamin C) 500 mg tablet Active 500 mg PO daily March 10, 2025 12:00am calcium carbonate 1250 mg / cholecalciferol 600 unt oral tablet (10 sources) Vitamin D Start: 09-26-2020 take 1 tablet by mouth once daily Calcium Carbonate-Vitamin D3 Active 1 TABLET PO DAILY September 26, 2020 1:00am Calcium Carbonate / vitamin D3 (20 sources) take 1 tablet by mouth three times daily calcium carbonate/vitamin D3 (CALCIUM 600 + D ORAL) Take 1 tablet by mouth three times a day. Suspended take 1 tablet by jeanine th three times daily calcium carbonate/vitamin D3 (CALCIUM 60 0 + D ORAL) Take 1 tablet by mouth three times a day. Active take 1 tablet by mouth once carl y calcium carbonate/vitamin D3 (CALCIUM 600 + D ORAL) Take 1 tablet by mouth once daily. Suspended cholecalciferol 0.125 mg oral tablet (20 sources) Vitamin D Start: 11-18-2023 take 1 tablet by mouth once daily Cholecalciferol (Vitamin D3) (Vitamin D3) 125 mcg (5,000 unit) tablet Active 250 ug PO DAILY November 18, 2023 12:00am take 1 tablet by mouth once carl y cholecalciferol (VITAMIN D3) 1,000 unit tab tablet Take 1,000 Units by mouth once daily. Active hydrOXYzine hydrochloride 10 mg oral tablet (20 sources) Antihistamine Start: 04-29-2024 take 1 tablet by mouth three to four times daily as needed for anxiety Hydroxyzine Hcl 10 mg tablet Active 10 mg PO 3 to 4 times per day as needed for anxiety 90 3 April 29, 2024 12:00am Start: 01-01-2022 End: 12-03-2023 take 1 tablet by mouth at bedtime as needed for sleep Hydroxyzine Hcl 25 mg tablet Discontinued 25 mg PO AT BEDTIME as needed for Sleep May 16, 2022 2:54pm December 03, 2023 9:34am Start: 08-17-2020 End: 09-30-2020 take 2 tablets by mouth at bedtime Hydroxyzine Hcl 25 MG tablet Discontinued 50 mg PO AT BEDTIME August 17, 2020 1:00am September 30, 2020 9:04pm Rash Start: 08-17-2020 End: 02-12-2021 take 50 mg by mouth at bedtime Hydroxyzine Hcl Discont inued 50 MG PO AT BEDTIME August 17, 2020 1:00am September 30, 2020 9:04pm meclizine hydrochloride 25 mg oral tablet (20 sources) Antiemetic Start: 01-21-2022 take 25 mg by mouth three times daily Meclizine Active 25 MG PO THREE TIMES A DAY January 21, 2022 2:27pm Start: 03-19-2018 End: 05-26-2019 take 2 tablets by mouth three times daily Meclizine 25 mg tablet,chewable Discontinued 50 mg PO THREE TIMES A DAY March 19, 2018 12:00am May 26, 2019 5:47pm Start: 03-19-2018 End: 05-26-2019 take 50 mg by mouth three times daily Meclizine Discontinued 50 MG PO THREE TIMES A DAY March 19, 2018 12:00am May 26, 2019 5:47pm Nibeqiiuoldo-Pwbc-Tnaze Acid (13 sources) Start: 06-13-2020 Multivitamin-I joelle-Folic Acid Active 1 EACH PO DAILY June 13, 2020 11:01am Start: 06-13-2020 Multivitamin-I joelle-Folic Acid Active 1 EACH PO DAILY June 12, 2020 11:00pm Start: 06-13-2020 Multivitamin-I joelle-Folic Acid Active 1 EACH PO DAILY June 13, 2020 12:00am prochlorperazine 10 mg oral tablet (12 sources) Phenothiazine Start: 09-30-2024 take 1 tablet by mouth every six hours as needed prochlorperazine (COMPAZINE) 10 mg tablet Take 1 tablet by mouth every 6 hours as needed. 30 tablet 09/30/2024 5:53 PM EST 09/30/2024 Active Completed/Discontinued Medications Medication Drug Class(es) Dates Sig (Normalized) Sig (Original) acetaminophen 325 mg oral tablet (20 sources) Start: 04-26-2021 take 2 tablets by mouth every six hours as needed acetaminophen (TYLENOL) 325 mg tablet Take 2 tablets by mouth every 6 hours as needed (mild pain (1-3)). 04/26/2021 Suspended take 2 tablets by mo uth every six hours as needed acetaminophen (TYLENOL) 500 mg tablet Ta ke 1,000 mg by mouth every 6 hours as needed for pain. Active acetaminophen 325 mg / HYDROcodone bitartrate 5 mg oral tablet (20 sources) Opioid Agonist Start: 12-03-2023 End: 12-16-2023 Hydrocodone-Acetaminophen 5- 325 mg tablet Discontinued 1 - 2 {tbl} PO Q4H as needed for pain 30 5 0 December 03, 2023 December 16, 2023 7:58am Other acute postprocedural pain Other acute postprocedural pain Start: 12-03-2023 End: 12-16-2023 take 1 tablet by mouth every four hours Hydrocodone-Acetaminophen Discontinued 1 - 2 TABLET PO Q4H 30 5 December 03, 2023 December 16, 2023 7:58am Start: 07-20-2021 End: 10-18-2021 Hydrocodone-Acetaminophen (N orco) 5-325 mg Tablet Discontinued 1 {tbl} PO TWICE A DAY as needed for Pain July 20, 2021 1:00am October 18, 2021 11:54am [id number] 200 actuat albuterol 0.09 mg/actuat metered dose inhaler (1 source) beta2-Adrenergic Agonist Start: 04-24-2021 take 2 puff(s) by inhalation every four hours as needed for wheezing albuterol HFA (PROVENTIL HFA, VENTOLIN HFA) 90 mcg/actuation inhaler Inhale 2 Puffs as instructed every 4 hours as needed for wheezing/shortness of breath. 04/24/2021 Suspended algeaCal (11 sources) Start: 11-18-2023 End: 10-08-2024 algeaCal Discontinued 2 NMA PO THREE TIMES A DAY November 18, 2023 12:00am October 08, 2024 6:49pm Start: 11-18-2023 take 2 capsules by m outh three times daily algeaCal Active 2 CAP PO THREE TIMES A DAY November 18, 2023 12:00am amiodarone hydrochloride 400 mg oral tablet (15 sources) Antiarrhythmic Start: 09-30-2024 End: 02-09-2025 take 1 tablet by mouth once daily Amiodarone 400 mg tablet Discontinued 400 mg PO daily October 08, 2024 1:00am December 14, 2024 3:34pm amLODIPine 2.5 mg oral tablet (20 sources) Dihydropyridine Calcium Channel Lamont Start: 08-30-2023 End: 09-23-2023 take 1 tablet by mouth once daily Amlodipine 2.5 mg tablet Discontinued 2.5 mg PO DAILY 90 3 August 30, 2023 1:00am September 23, 2023 11:42am Start: 07-29-2023 End: 08-30-2023 take 1 tablet by mouth once daily Amlodipine 5 mg tablet Discontinued 5 mg PO DAILY 90 0 July 29, 2023 1:00am August 30, 2023 1:21pm Start: 04-21-2019 End: 07-29-2020 take 1 tablet by mouth once daily Amlodipine 2.5 mg tablet Discontinued 2.5 mg PO DAILY 90 May 16, 2020 3:59pm July 29, 2020 10:46am Start: 03-25-2018 End: 05-26-2019 take 1 tablet by mouth once daily Amlodipine 5 mg tablet Discontinued 5 mg PO daily 30 12 March 25, 2018 8:16pm May 26, 2019 5:46pm amoxicillin 875 mg oral tablet (20 sources) Penicillin-class Antibacterial Start: 03-25-2018 End: 05-26-2019 take 1 tablet by mouth twice daily Amoxicillin 875 mg tablet Discontinued 875 mg PO TWICE A DAY 20 0 March 25, 2018 12:00am May 26, 2019 5:47pm amoxicillin 875 mg / clavulanate 125 mg oral tablet (20 sources) Penicillin-class Antibacterial Start: 01-25-2022 End: 01-29-2022 Amoxicillin-Pot Clavulanate 875-125 mg tablet Discontinued 1 {tbl} PO TWICE A DAY 20 0 January 25, 2022 12:00am January 29, 2022 8:43am Start: 01-25-2022 End: 01-29-2022 take 1 tablet by mouth twice daily Amoxicillin-Pot Clavulanate Discontinued 1 TABLET PO TWICE A DAY January 25, 2022 12:00am January 29, 2022 8:43am anastrozole 1 mg oral tablet (20 sources) Aromatase Inhibitor Start: 09-26-2020 End: 01-13-2021 take 1 tablet by mouth once daily Anastrozole 1 MG tablet Discontinued 1 mg PO DAILY 90 90 October 18, 2020 1:41pm January 13, 2021 9:59am 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 30 tablet 1 04/23/2024 06/09/2024 Discontinued (Course of therapy completed) benzonatate 100 mg oral capsule (1 source) Non-narcotic Antitussive Start: 04-26-2021 take 1 capsule by mouth three times daily benzonatate (TESSALON PERLE) 100 mg capsule Take 1 capsule by mouth three times daily. 42 capsule 04/26/2021 Suspended 30 ml bupivacaine hydrochloride 5 mg/ml injection (2 sources) Amide Local Anesthetic Start: 04-07-2025 End: 04-07-2025 BUPivacaine (PF) 0.5 % (5 mg/mL) 2 mL injection Start: 04-07-2025 End: 04-07-2025 2 mL, Injection - FOR ORTHO USE ONLY, ONCE, 1 dose, Starting on Sat04/07/25 at 1327, Until Sat04/07/25 at 1327 ceFAZolin 1000 mg injection (1 source) Cephalosporin Antibacterial Start: 09-10-2024 End: 09-10-2024 1 g, INTRAVENOUS, at 100 mL/hr, Administer over 30 Minutes, ONCE, 1 dose, On Frida 09/10/24 at 1000, Tube # 315 GIPSON product = Refrigerate. B. Navarro DUPLEX product = Room Temp., Antimicrobial indication: Prophylaxis, Preprocedure cephalexin 500 mg oral capsule (20 sources) Cephalosporin Antibacterial Start: 09-10-2024 End: 09-30-2024 take 1 capsule by mouth twice daily cephALEXin (KEFLEX) 500 mg capsule Take 1 capsule by mouth two times a day. 14 capsule 09/10/2024 09/30/2024 Discontinued Start: 11-01-2022 End: 11-06-2022 take 1 tablet by mouth four times daily Cephalexin 500 mg capsule Discontinued 500 mg PO .qid 20 5 0 November 01, 2022 12:00am November 05, 2022 12:00am November 06, 2022 12:05am Mastitis Mastitis without abscess take one tab PO four times per day clonazePAM 0.5 mg oral tablet (20 sources) Benzodiazepine Start: 10-08-2024 End: 04-13-2025 take 1 tablet by mouth twice daily Clonazepam 0.5 mg tablet Discontinued 0.5 mg PO TWICE A DAY 60 5 October 09, 2024 1:15pm March 10, 2025 1:51pm clopidogrel 75 mg oral tablet (20 sources) [id number] Platelet Inhibitor Start: 04-29-2024 End: 10-08-2024 take 1 tablet by mouth once daily Clopidogrel (Plavix) 75 mg tablet Discontinued 75 mg PO daily April 29, 2024 12:00am October 08, 2024 6:49pm Start: 04-24-2024 End: 06-09-2025 take 1 tablet by mouth once daily clopidogrel (PLAVIX) 75 mg tablet 1 tablet by ORAL/FEEDING TUBE route once daily. 90 tablet 3 06/09/2024 09/30/2024 Discontinued colchicine 0.6 mg oral tablet (20 sources) Start: 10-01-2024 End: 03-10-2025 take 1 tablet by mouth once daily Colchicine 0.6 mg tablet Discontinued 0.6 mg PO daily October 08, 2024 1:00am March 10, 2025 1:50pm cyclobenzaprine hydrochloride 10 mg oral tablet (20 sources) Muscle Relaxant Start: 07-18-2021 End: 10-18-2021 take 1 tablet by mouth three times daily Cyclobenzaprine 10 mg tablet Discontinued 10 mg PO THREE TIMES A DAY July 18, 2021 1:00am October 18, 2021 11:54am Start: 07-16-2021 take 1 tablet by [facility] every eight hours as needed cyclobenzaprine (FLEXERIL) 10 mg tablet Take 1 tablet by mouth every 8 hours as needed for muscle spasm (or pain). 14 tablet 07/16/2021 Suspended dexamethasone 6 mg oral tablet (20 sources) Corticosteroid Start: 04-08-2021 End: 05-05-2021 take 1 tablet by mouth once daily Dexamethasone (Decadron) 6 mg tablet Discontinued 6 mg PO DAILY 9 April 08, 2021 12:00am May 05, 2021 3:49pm dextromethorphan hydrobromide 2 mg/ml / guaiFENesin 20 mg/ml oral solution (1 source) Uncompetitive M-zopuyt-Y-aspartat e Receptor Antagonist, Sigma-1 Agonist Start: 04-26-2021 take 10 mL by mouth every four hours as needed guaiFENesin-dextro methorphan (ROBITUSSIN DM) 100-10 mg/5 mL syrup Take 10 mL by mouth every 4 hours as needed for cough. 236 mL 04/26/2021 Suspended diazePAM 5 mg oral tablet (20 sources) Benzodiazepine Start: 03-19-2018 End: 05-26-2019 Diazepam 5 mg tablet Discontinued 5 mg PO 2 to 3 times per day as needed March 19, 2018 12:00am May 26, 2019 5:47pm 24 hr dilTIAZem hydrochloride 180 mg extended release oral capsule (20 sources) Calcium Channel Lamont Start: 04-09-2025 End: 04-14-2025 take 1 capsule by mouth twice daily, then take 1 capsule by mouth every twenty-four hours Diltiazem Hcl (Cardizem Cd) 180 mg capsule,extended release 24hr Discontinued 180 mg PO TWICE A DAY 90 April 09, 2025 3:14pm April 14, 2025 2:57pm Start: 03-12-2025 End: 04-09-2025 take 1 capsule by mouth once daily, then take 1 capsule by mouth every twenty-four hours Diltiazem Hcl (Cardizem Cd) 180 mg capsule,extended release 24hr Discontinued 180 mg PO daily 90 March 12, 2025 12:00am April 09, 2025 3:14pm Start: 10-01-2024 End: 10-23-2025 take 1 capsule by mouth once daily in the morning, then take 1 capsule by mouth every twenty-four hours Diltiazem Hcl (Cardizem Cd) 360 mg capsule,extended release 24hr Discontinued 360 mg PO EVERY MORNING October 08, 2024 1:00am March 12, 2025 12:19pm docusate sodium 100 mg oral capsule (1 source) Start: 04-26-2021 take 1 capsule by mouth every twelve hours as needed docusate sodium (COLACE) 100 mg capsule Take 1 capsule by mouth twice daily as needed (constipation). 04/26/2021 Suspended exemestane 25 mg oral tablet (20 sources) Aromatase Inhibitor Start: 08-20-2023 End: 12-02-2023 take 1 tablet by mouth once daily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 sources) Acute left otitis media; Translations: [Otitis media, unspecified, left ear] 07-28-2020 Episodic [place]-; endo-; and myocarditis; cardiomyopathy (except that caused by tuberculosis or sexually transmitted disease) (20 sources) Acute pericarditis; Translations: [Acute pericarditis, unspecified] Onset: 09-26-2024 09-26-2024 Episodic Residual codes; unclassified (19 sources) Estrogen receptor positive tumor; Translations: [Estrogen receptor positive status [ER+]] 09-04-2022 Episodic Residual codes; unclassified (9 sources) Dependent edema; Translations: [Edema, unspecified] 12-21-2023 Episodic Residual codes; unclassified (8 sources) Insomnia; Translations: [Insomnia, unspecified] 10-09-2024 Episodic Unclassified (1 source) Hypertensive urgency; Translations: [Hypertensive urgency] Onset: 03-21-2018 Unclassified (1 source) Unspecified lump in unspecified breast; Translations: [Unspecified lump in unspecified breast] Onset: 10-24-2017 Unclassified (8 sources) Radiation-induced disorder; 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] 03-02-2021 Unclassified (5 sources) Radiation injury; 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] 03-02-2021 Unclassified (8 sources) Radiation fibrosis 03-02-2021 Unclassified (1 source) PFO (patent foramen ovale); Translations: [PFO (patent foramen ovale)] Onset: 09-10-2024 Unclassified (1 source) Other pericardial effusion (noninflammatory); Translations: [Other pericardial effusion (noninflammatory)] Onset: 05-05-2025 Urinary tract infections (20 sources) Cystitis; Translations: [Cystitis, unspecified without hematuria] 08-10-2020 Episodic Viral infection (20 sources) Disease caused by 2019-nCoV; Translations: [COVID-19] Onset: 03-19-2021 01-11-2022 Episodic Past or Other Problems Problem Classification Problem Date Documented Da te Episodic/Chronic Cardiac dysrhythmias (3 sources) Sinus bradycardia; Translations: [Bradycardia, unspecified] Onset: 11-25-2024 11-04-2024 Episodic Fluid and electrolyte disorders (20 sources) Metabolic acidosis; Translations: [Metabolic acidosis] Onset: 04-20-2024 04-20-2024 Episodic Hypertension with complications and secondary hypertension (20 sources) Hypertensive urgency ; Translations: [Hypertensive urgency] Onset: 03-19-2018 Resolved: 04-20-2020 04-20-2020 Chronic Malaise and fatigue (20 sources) Asthenia; Translations: [Weakness] Onset: 04-24-2021 04-24-2021 Episodic Nonmalignant breast conditions (20 sources) Mastodynia; Translations: [Pain of right breast] Onset: 07-09-2024 02-15-2021 Episodic Other aftercare (20 sources) Follow-up status; Translations: [Encounter for other specified aftercare] Onset: 04-24-2021 04-24-2021 Episodic Other connective tissue disease (20 sources) Neurological symptom; Translations: [Unspecified symptoms and signs involving the nervous system] Onset: 04-19-2024 04-19-2024 Episodic Other connective tissue disease (1 source) Unspecified symptoms and signs involving the nervous system; Translations: [Stroke-like symptoms] Onset: 04-20-2024 Episodic Other injuries and conditions due to external causes (2 sources) Radiation injury; Translations: [Radiation sickness, unspecified, initial encounter] Onset: 04-26-2021 04-26-2021 Episodic Other injuries and conditions due to external causes (20 sources) Radiation sickness, unspecified, initial encounter; Translations: [Effects of radiation, unspecified] Onset: 04-26-2021 04-26-2021 Episodic Residual codes; unclassified (14 sources) Other specified personal risk factors, not elsewhere classified; Translations: [Other specified personal history presenting hazards to health] Onset: 09-30-2024 09-30-2024 Episodic Residual codes; unclassified (1 source) Estrogen receptor positive status [ER+]; Translations: [Estrogen receptor positive status [ER+]] Onset: 12-14-2024 Episodic Respiratory failure; insufficiency; arrest (adult) (20 sources) Acute respiratory failure; Translations: [Acute respiratory failure with hypoxia] Onset: 04-24-2021 04-24-2021 Episodic Spondylosis; intervertebral disc disorders; other back problems (20 sources) Sciatica; Translations: [Sciatica, right side] Onset: 11-05-2024 07-20-2021 Episodic Unclassified (20 sources) Encounter for other screening for malignant neoplasm of breast; Translations: [Patient encounter status] Onset: 10-11-2017 Episodic Results Test Name Value Interpretation Reference Range Facility Gastroenterology Visit Repor ton 04-08-2025 Gastroenterology Visit Report [facility]enterology [address] [place] [address] OFFICE VISIT Date of Service: 04/08/25 MR#: [id number] Acct: [id number] Name: BO JACOB Rep #: [id number] : 1955 Provider: KEYA caro Age/Sex: 69/F Location: [facility] – [place] Status: Signed Intake Vital Signs 04/04/25 01:05 04/08/25 09:29 Height 5 ft 1 in 5 ft 1 in Weight: 183 lb BMI 34.5 BP 129/83 H Blood Pressure Location Lt brachial Position Sitting Pulse 85 Pulse Oximetry (%) 98 Intake Visit Reasons: Hospital FU Chief Complaint: HFU- chest pain Manager Wireless Required: No Accompanied by: Self Is patient in pain?: No Allergies adhesive tape Allergy (Intermediate, Verified 04/08/25 09:27) Hives oxycodone Allergy (Intermediate, Verified 04/08/25 09:27) Rash anastrozole Adverse Reaction (Severe, Verified 04/08/25 09:27) joint pain, anxiety, hot flashes Medications ???Medication ???Instructions ???Recorded ???Confirmed ???Type cholecalciferol (vitamin D3) 125 250 mcg PO DAILY 11/18/23 04/08/25 History mcg (5,000 unit) tablet (Vitamin D3) hydroxyzine HCl 10 mg tablet 10 mg PO TID-QID PRN anxiety #90 0 04/29/24 04/08/25 Rx tabs apixaban 5 mg tablet (Eliquis) 5 mg PO BID 10/08/24 04/08/25 Hist ory pantoprazole 20 mg tablet,delayed 20 mg PO QDAY #90 tabs 10/28/24 0 04/08/25 Rx release (Protonix) exemestane 25 mg tablet 25 mg PO DAILY #90 TABLETS 5 04/08/25 Rx ascorbate calcium (vitamin C) 500 500 mg PO QDAY 03/10/25 04/04/25 History mg tablet calcium acetate 667 mg tablet 667 mg PO ONCE 03/10/25 04/08/25 H istory clonazepam 0.5 mg tablet 0.5 mg PO BID PRN anxiety 03/10/25 04/08/25 History diltiazem HCl 180 mg 180 mg PO BID #90 caps 04/09/25 R x capsule,extended release 24 hr (Cardizem CD) Have you fallen in the past year?: No PFSH Medical History Pericardial effusion Atrial fibrillation with RVR Acute pericarditis Chest pain Paroxysmal A-fib Use of aromatase inhibitors Screening for osteoporosis Elevated alkaline phosphatase level History of transesophageal echocardiography (BLACK) PFO (patent foramen ovale) Wears glasses Marijuana [...] History of ectopic Esophageal reflux Surgical History History of surgical closure of patent foramen ovale (PFO) S/P lateral meniscus repair of left knee [...] 1-2 times per week duration: 15-30 minutes/day frankie/scientologist: Non-Hinduism/Independ ent seatbelt use: always do you feel safe at home: Yes HPI HPI Chief Complaint: HFU- chest pain Details: BO JACOB, is a 69 F who presents to the office today for - pressure in chest, radiates up into throat and through to her back - seen in ER this past 04/03/2025 - reports [place] was rule-out in ED - h/o CVA 04/19/2024 - PFO repair August 2024 then September 2024 she developed A. Fib and the same chest pressure, pericarditis started on cardizem, ami (more content not included)... Normal [facility] Additional Injections: R casandra ntar fasciaon 04-07-2025 Angeli Jarred Renata mandujano DPSusanna 04/07/2025 2:52 PM Additional Injections: R plantar fascia for plantar fasciitis injection 04/07/2025 1:27 PM The procedure site was prepped in the usual sterile fashion. Site: R plantar fascia Medications: 40 mg methylPREDNISolone acetate 40 mg/mL Anesthetics: 2 mL BUPivacaine (PF) 0.5 % (5 mg/mL) Outcome: tolerated well, no immediate complications Post-injection instructions were reviewed with the patient and the patient voiced understanding of these instructions. Informed Consent Consent Obtained: Verbal [place] Protocol SIGN IN Patient/Surrogate Stated/Verified: Patient name TIME OUT Correct side/site marked and visible. Medications required for procedure verified. SIGN OUT The post-procedure POC has been communicated to the patient or surrogate. [facility] CNOVon 04-07-2025 CNOV Normal [facility] Absolute lymphocyte countOrd ered By: Rob Guallpa on 04-04-2025 Lymphocytes Auto (Unsp spec) [#/Vol] 2.15 10*3/uL 0.83-4.51 [facility] Absolute neutrophil countOrd ered By: Rob Guallpa on 04-04-2025 Neutrophils (Bld) [#/Vol] 4.2 10*3/uL 2.0-7.7 [facility] Anion gap in Serum or Plasma Ordered By: Rob Guallpa on 04-04-2025 Anion gap [Moles/Vol] 14 mmol/L - [facility] Automated lymphocyte count a s percentage of total leukocytesOrdered By: Rob Guallpa on 04-04-2025 Lymphocytes/100 WBC Auto (Unsp spec) 29.4 % - [facility] BUN/creatinine ratioOrdered By: Rob Guallpa on 04-04-2025 Urea nitrogen/Creatinine [Mass ratio] 20.6 mg/mg High 10- [facility] Basic Metabolic Profile (BMP )on 04-04-2025 BUN/CRE 20.6 RATIO High 10-20 [facility] Comment on above: Performed By: #### L 501.4021, L100.0100, L500.2500 ####[facility] [address] [place], [address] Calcium [Mass/Vol] 9.6 mg/dL Normal 7.6-11.0 [facility] Comment on above: Performed By: #### L 501.4021, L100.0100, L500.2500 ####[facility] [address] [place], [address] Chloride [Moles/Vol] 105 mmol/L Normal 98-108 [facility] Comment on above: Performed By: #### L 501.4021, L100.0100, L500.2500 ####[facility] [address] [place], [address] CO2 [Moles/Vol] 24.3 mmol/L Normal 21.0-32.0 [facility] Comment on above: Performed By: #### L 501.4021, L100.0100, L500.2500 ####[facility] [address] [place], [address] Creatinine [Mass/Vol] 0.88 mg/dL Normal 0.70-1.20 [facility] Comment on above: Performed By: #### L 501.4021, L100.0100, L500.2500 ####[facility] [address] [place], [address] ECRCL 59.54 ml/min Normal 50-250 [facility] Comment on above: Performed By: #### L 501.4021, L100.0100, L500.2500 ####[facility] [address] [place], [address] GAP 14 Normal 5-15 [facility] Comment on above: Performed By: #### L 501.4021, L100.0100, L500.2500 ####[facility] [address] [place], [address] GFR/1.73 sq M.predicted among non-blacks MDRD (S/P/Bld) [Vol rate/Area] 71 mL/min/{1.73_m2} Normal >60 [facility] Comment on above: Result Comment: mL/m in/1.73m2 CKD-EPI Creatinine Equation (2020) Performed By: #### L 501.4021, L100.0100, L500.2500 ####[facility] [address] [place], [address] Glucose [Mass/Vol] 103 mg/dL High 70-99 [facility] Comment on above: Performed By: #### L 501.4021, L100.0100, L500.2500 ####[facility] [address] [place], [address] Potassium [Moles/Vol] 3.7 mmol/L Normal 3.3-5.1 [facility] Comment on above: Performed By: #### L 501.4021, L100.0100, L500.2500 ####[facility] [address] [place], [address] Sodium [Moles/Vol] 143 mmol/L Normal 133-145 [facility] Comment on above: Performed By: #### L 501.4021, L100.0100, L500.2500 ####[facility] [address] [place], [address] Urea nitrogen [Mass/Vol] 18 mg/dL Normal 4-19 [facility] Comment on above: Performed By: #### L 501.4021, L100.0100, L500.2500 ####[facility] [address] [place], [address] Basophil percentageOrdered B y: Rob Guallpa on 04-04-2025 Basophils/100 WBC (Bld) 1.1 % High 0-1 [facility] CBC W/Diff, Automatedon 03-19 Absolute Lymph 2.15 X10 3/uL Normal 0.83-4.51 [facility] Comment on above: Performed By: #### L 501.4021, L100.0100, L500.2500 ####[facility] [address] [place], [address] Absolute Neut 4.2 X10 3/uL Normal 2.0-7.7 [facility] Comment on above: Performed By: #### L 501.4021, L100.0100, L500.2500 ####[facility] [address] [place], [address] Basophils/100 WBC (Bld) 1.1 % High 0-1 [facility] Comment on above: Performed By: #### L 501.4021, L100.0100, L500.2500 ####[facility] [address] [place], [address] Eosinophils/100 WBC (Bld) 4.5 % Normal 0-5 [facility] Comment on above: Performed By: #### L 501.4021, L100.0100, L500.2500 ####[facility] [address] [place], [address] Erythrocyte distribution width (RBC) [Ratio] 12.4 % Normal 11.6-14.6 [facility] Comment on above: Performed By: #### L 501.4021, L100.0100, L500.2500 ####[facility] [address] [place], [address] Hematocrit (Bld) [Volume fraction] 42.9 % Normal 37-47 [facility] Comment on above: Performed By: #### L 501.4021, L100.0100, L500.2500 ####[facility] [address] [place], [address] Hemoglobin (Bld) [Mass/Vol] 14.8 g/dL Normal 12.0-15.0 [facility] Comment on above: Performed By: #### L 501.4021, L100.0100, L500.2500 ####[facility] [address] [place], [address] IG% 0.500 Normal 0.0-0.9 [facility] Comment on above: Result Comment: IG% - Immature Granulocytes (promyelocytes, myelocytes and metamyelocytes) > 1% indicates that a LEFT SHIFT is Present. Performed By: #### L 501.4021, L100.0100, L500.2500 ####[facility] [address] [place], [address] Lymphocytes/100 WBC (Bld) 29.4 % Normal 19-41 [facility] Comment on above: Performed By: #### L 501.4021, L100.0100, L500.2500 ####[facility] [address] [place], [address] MCH (RBC) [Entitic mass] 32.2 pg High 27.0-32.0 [facility] Comment on above: Performed By: #### L 501.4021, L100.0100, L500.2500 ####[facility] [address] [place], [address] MCHC (RBC) [Mass/Vol] 34.5 g/dL Normal 32-36 [facility] Comment on above: Performed By: #### L 501.4021, L100.0100, L500.2500 ####[facility] [address] [place], [address] MCV (RBC) [Entitic vol] 93.3 fL Normal 81-99 [facility] Comment on above: Performed By: #### L 501.4021, L100.0100, L500.2500 ####[facility] [address] [place], [address] Monocytes/100 WBC (Bld) 6.6 % Normal 0-10 [facility] Comment on above: Performed By: #### L 501.4021, L100.0100, L500.2500 ####[facility] [address] [place], [address] Neutrophils/100 WBC (Bld) 57.9 % Normal 47-70 [facility] Comment on above: Performed By: #### L 501.4021, L100.0100, L500.2500 ####[facility] [address] [place], [address] Nucleated RBC (Bld) [#/Vol] 0 10*3/uL Normal 0-5 [facility] Comment on above: Performed By: #### L 501.4021, L100.0100, L500.2500 ####[facility] [address] [place], [address] Platelet mean volume (Bld) [Entitic vol] 9.4 fL Normal 6.2-12.0 [facility] Comment on above: Performed By: #### L 501.4021, L100.0100, L500.2500 ####[facility] [address] [place], [address] Platelets (Bld) [#/Vol] 255 10*3/uL Normal 150-450 [facility] Comment on above: Performed By: #### L 501.4021, L100.0100, L500.2500 ####[facility] [address] [place], [address] RBC (Bld) [#/Vol] 4.60 10*6/uL Normal 4.2-5.4 [facility] Comment on above: Performed By: #### L 501.4021, L100.0100, L500.2500 ####[facility] [address] [place], [address] RDW SD 42.6 fl Normal 35.1-43.9 [facility] Comment on above: Performed By: #### L 501.4021, L100.0100, L500.2500 ####[facility] [address] [place], [address] WBC (Bld) [#/Vol] 7.3 10*3/uL Normal 4.4-11.0 [facility] Comment on above: Performed By: #### L 501.4021, L100.0100, L500.2500 ####[facility] [address] [place], [address] Carbon dioxide, total [Moles /volume] in Central venous bloodOrdered By: Rob Guallpa on 04-04-2025 CO2 [Moles/Vol] 24.3 mmol/L 21.0-32.0 [facility] Chest 1 View (Portable)on Chest 1 View (Portable) [facility] Imaging Services [address] [place] [address] Chest 1 View (Portable) MR#: [id number] Acct: [id number] Name: BO JACOB Rep #: [id number] : 1955 F 69 From: Consuelo connell MD PCP: KEYA Reaves Status: DEP ER Study: Chest 1 View (Portable) Date of Exam: 04/04/25 Exam# [id number] Ordering Dr: Rob Guallpa MD PROCEDURE: CHEST 1 VIEW (PORTABLE) 04/04/2025 REASON FOR EXAM: CHEST PAIN TECHNIQUE: Frontal view of the chest. COMPARISON: None. FINDINGS: The lungs are expanded. There is no demonstrated parenchymal abnormality. There is no demonstrated pleural abnormality. Enlarged cardiac silhouette. Normal mediastinum and sydni. Normal visualized pulmonary arteries. Atheromatous plaques of the visualized aortic arch and descending thoracic aorta. Diffuse spondylosis of the visualized thoracic spine. Normal visualized ribs, clavicles. Degenerative joint disease. There is no demonstrated abnormality of the visualized soft tissue structures of the upper abdomen. RAD/Chest 1 View (Portable) IMPRESSION: No evidence for acute abnormality. Reading Location: [place] [address] CC: DRAWING TENDER-C Loan Dias; Dr. Rob Guallpa MD Home Attendant: Signed Normal [facility] Chloride assayOrdered By: Laxmi Guallpa on 04-04-2025 Chloride [Moles/Vol] 105 mmol/L 98-108 [facility] Emergency Department Summary on 04-04-2025 Emergency Department Summary [facility] Medical Records Department [address] [place] [address] Emergency Department Summary 04/04/25 MR#: [id number] Acct: [id number] Name: BO JACOB Rep #: [id number] : 1955 69 From: Rob Guallpa MD PCP: KEYA Reaves Status:REG ER Location: ED HPI History of Present Illness Chief Complaint: Chest Pain Informant: patient and family Narrative Narrative: 69-year-old female presenting with substernal chest pressure that has basically been there all day this past day. Not worse with exertion, nonpleuritic. Leaning forward makes it feel better, so she tries to sleep that way when she gets this. The last time she had it was 3 days ago, she was driving, she felt like her heart was racing and her watch told her that her heart rate was in the 120s, but then it all resolved together after half an hour or more. Today she has felt her heart racing a little bit, but not like it did that day. She does not feel like that right now. She states at times the discomfort has radiated into her upper back or her neck like it is right now the latter. Earlier she tried a clonazepam but it did not help. She also tried drinking some Mylanta but it did not do anything. She denies any nausea, vomiting, abdominal pain. No leg pain or swelling. She is anticoagulated on Eliquis because of having A-fib with RVR earlier in the year which was thought to be due to pericarditis which the patient had about a week after PFO closure in August, which was found because she had a stroke at the end of last year. She had a cardioversion out of A-fib in September, she had a couple of bouts of paroxysmal A-fib after that but no other episodes that she knows of although she does not know the cause of her heart rate going up to the 120s on occasion. She does have a loop recorder device and follows with cardiology here at the [place] [facility]. She states her spearer thinks that the pressure she has been having has been chronic pericarditis. [facility] Medical History Pericardial effusion Atrial fibrillation with RVR Acute pericarditis Chest pain Paroxysmal A-fib Use of aromatase inhibitors Screening for osteoporosis Elevated alkaline phosphatase level History of transesophageal echocardiography (BLACK) PFO (patent foramen ovale) Wears glasses Marijuana [...] Ventricular trigeminy History of ectopic Esophageal reflux Home Medications ???Medication ???Instructions ???Recorded ???Last Taken ???Type aspirin 81 mg tablet,delayed 81 mg PO DAILY 07/18/21 11/28/23 H istory release (Corky Low Dose Aspirin) cholecalciferol (vitamin D3) 125 250 mcg PO DAILY 11/18/23 12/02/23 History mcg (5,000 unit) tablet (Vitamin D3) hydroxyzine HCl 10 mg tablet 10 mg PO TID-QID PRN anxiety #90 0 04/29/24 Unknown Rx tabs apixaban 5 mg tablet (Eliquis) 5 mg PO BID 10/08/24 Unknown Histo ry pantoprazole 20 mg tablet,delayed 20 mg PO QDAY #90 tabs 10/28/24 U nknown Rx release (Protonix) exemestane 25 mg tablet 25 mg PO DAILY #90 TABLETS 5 Unknown Rx ascorbate calcium (vitamin C) 500 500 mg PO QDAY 03/10/25 Unknown H istory mg tablet calcium acetate 667 mg tablet 667 mg PO ONCE 03/10/25 Unknown Hi story clonazepam 0.5 mg tablet 0.5 mg PO BID PRN anxiety 03/10/25 Unknown History diltiazem HCl 180 mg 180 mg PO QDAY #90 caps 03/12/25 U nknown Rx capsule,extended release 24 hr (Cardizem CD) Allergy/AdvReac Type Severity Reaction Status Date / Time adhesive tape Allergy Intermediate Hives Verified 04/04/25 01:04 oxycodone Allergy Intermediate Rash Verified 04/04/25 01:04 anastrozole AdvReac Severe joint Verified 04/04/25 01:04 pain, anxiety, hot flashes Family History Mother CVA (cerebral vascular accident) Hypertension Grandmother CVA (cerebral vascular accident) Aunt CVA (cerebral vascular accident) Father COPD (chronic obstructive pulmonary disease) Bro (more content not included)... Normal [facility] Eosinophil percentageOrdered By: Rob Guallpa on 04-04-2025 Eosinophils/100 WBC (Bld) 4.5 % 0-5 [facility] Erythrocyte distribution wid th ratioOrdered By: Rob Guallpa on 04-04-2025 Erythrocyte distribution width (RBC) [Ratio] 12.4 % 11.6-14.6 [facility] Erythrocyte distribution wid th standard deviationOrdered By: Rob Guallpa on 04-04-2025 Erythrocyte distribution width (RBC) [Ratio] 42.6 fl 35.1-43.9 [facility] Glomerular filtration rate ( GFR) estimation/1.73 sq m using serum, plasma, or whole bOrdered By: Rob Guallpa on 04-04-2025 GFR/1.73 sq M.predicted among non-blacks MDRD (S/P/Bld) [Vol rate/Area] 71 mL/min/{1.73_m2} >60 [facility] Comment on above: mL/min/1.73m2 CKD-EP I Creatinine Equation (2020) Hematocrit Auto (Bld) [Volum e fraction]Ordered By: Rob Guallpa on 04-04-2025 Hematocrit (Bld) [Volume fraction] 42.9 % 37-47 [facility] Hemoglobin measurementOrdere d By: Rob Guallpa on 04-04-2025 Hemoglobin (Bld) [Mass/Vol] 14.8 g/dL 12.0-15.0 [facility] Immature granulocytes/100 WB C Auto (Bld)Ordered By: Rob Guallpa on 04-04-2025 Immature granulocytes/100 WBC (Bld) 0.500 % 0.0-0.9 [facility] [facility] Comment on above: IG% - Immature Granu locytes (promyelocytes, myelocytes and metamyelocytes) > 1% indicates that a LEFT SHIFT is Present. L501.4021on 04-04-2025 Trop T High Sen 8 ng/L Normal <=14 [facility] Comment on above: Performed By: #### L 501.4021, L100.0100, L500.2500 ####[facility] [address] [place], [place], [id number] MCV (mean corpuscular volume ) determinationOrdered By: Rob Guallpa on 04-04-2025 MCV (RBC) [Entitic vol] 93.3 fL 81-99 [facility] Mean corpuscular hemoglobin (MCH) determinationOrdered By: Rob Guallpa on 04-04-2025 MCH (RBC) [Entitic mass] 32.2 pg High 27.0-32.0 [facility] Mean corpuscular hemoglobin concentration (MCHC) determinationOrdered By: Rob Guallpa on 04-04-2025 MCHC (RBC) [Mass/Vol] 34.5 g/dL 32-36 [facility] Mean platelet volume determi nationOrdered By: Rob Guallpa on 04-04-2025 Platelet mean volume (Bld) [Entitic vol] 9.4 fL 6.2-12.0 [facility] Monocyte percentageOrdered B y: Rob Guallpa on 04-04-2025 Monocytes/100 WBC (Bld) 6.6 % 0-10 [facility] Neutrophil percentageOrdered By: Rob Guallpa on 04-04-2025 Neutrophils/100 WBC (Bld) 57.9 % 47-70 [facility] Nucleated red blood cell per centageOrdered By: Rob Guallpa on 04-04-2025 Nucleated RBC/100 WBC (Bld) [Ratio] 0 % 0-5 [facility] Platelet countOrdered By: Laxmi Guallpa on 04-04-2025 Platelets (Bld) [#/Vol] 255 10*3/uL 150-450 [facility] Potassium measurement (mass/ volume)Ordered By: Rob Guallpa on 04-04-2025 Potassium (Unsp spec) [Mass/Vol] 3.7 mmol/L 3.3-5.1 [facility] RBC Auto (Bld) [#/Vol]Ordere d By: Rob Guallpa on 04-04-2025 RBC (Bld) [#/Vol] 4.60 10*6/uL 4.2-5.4 [facility] Serum creatinine measurement (mass/volume)Ordered By: Rob Guallpa on 04-04-2025 Creatinine [Mass/Vol] 0.88 mg/dL 0.70-1.20 [facility] Serum glucose measurement (m ass/volume)Ordered By: Rob Guallpa on 04-04-2025 Glucose [Mass/Vol] 103 mg/dL High 70-99 [facility] Serum or plasma calcium giovany urement (mass/volume)Ordered By: Rob Guallpa on 04-04-2025 Calcium [Mass/Vol] 9.6 mg/dL 7.6-11.0 [facility] Serum or plasma urea nitroge n measurement (mass/volume)Ordered By: Rob Guallpa on 04-04-2025 Urea nitrogen [Mass/Vol] 18 mg/dL 4-19 [facility] Sodium levelOrdered By: Michael Guallpa on 04-04-2025 Sodium [Moles/Vol] 143 mmol/L 133-145 [facility] Troponin T HS 2 HRon 025 Trop T High Sen 8 ng/L Normal <=14 [facility] Comment on above: Performed By: #### L 499.0042 ####[facility] [address] [place], [address] Troponin T HS 4 HRon 025 Trop T High Sen Normal <=14 [facility] Comment on above: Result Comment: Canc elled via OM: Order cancelled - Patient discharged Performed By: #### L 499.0043 ####[facility] [address] [place], [address] Troponin T.cardiac [Mass/vol ume] in Serum or Plasma by High sensitivity methodOrdered By: Rob Guallpa on 04-04-2025 Troponin T.cardiac High sensitivity method [Mass/Vol] 8 ng/L <14 [facility] Troponin T.cardiac High sensitivity method [Mass/Vol] 8 ng/L <14 [facility] White blood cell (WBC) count Ordered By: Rob Guallpa on 04-04-2025 WBC (Bld) [#/Vol] 7.3 10*3/uL 4.4-11.0 [facility] Cardiology Visit Reporton Cardiology Visit Report [facility] [address] [place], [place] [address] OFFICE VISIT Date of Service: 03/12/25 MR#: [id number] Acct: [id number] Name: OB JACOB Rep #: [id number] : 1955 Provider: Dr. Hossein gould MD Age/Sex: 69/F [place] [facility] [place]: Signed HPI HPI History of Present Illness Surgical H P: No Details: # HISTORY OF PRESENT ILLNESS The patient presents for evaluation and ongoing management of paroxysmal atrial fibrillation. She is a 69-year-old female with a history of hypertension, hyperlipidemia, premature ventricular contractions (PVCs), paroxysmal atrial fibrillation, prior cerebrovascular accident (CVA), and right breast cancer (stage Ia), status post right partial mastectomy on April 28, 2020. She underwent patent foramen ovale (PFO) closure at the [facility] on September 10, 2024. Her atrial fibrillation is suspected to be secondary to pericarditis following the PFO closure. The patient reports a history of recurrent atrial fibrillation episodes following her PFO closure, with initial presentation to the emergency department on September 23 for tachycardia with heart rates in the 180s, followed by a repeat presentation on September 24 requiring cardioversion. She was subsequently started on Eliquis, amiodarone, and colchicine for management of atrial fibrillation and pericarditis. She is also maintained on diltiazem. The patient has a loop recorder in place for ongoing rhythm monitoring. She reports being off amiodarone for approximately two months and is currently being monitored for recurrence of atrial fibrillation off antiarrhythmic therapy. She notes some stiffness and orthostatic symptoms upon standing, which may be related to medication adjustments or evolving clinical status. Additional patient data: Echocardiogram performed on September 25, 2024, demonstrated a left ventricular ejection fraction of 62% with normal valve function and no evidence of intracardiac shunting. Problem list: - Paroxysmal atrial fibrillation, possibly secondary to pericarditis following PFO closure on February 08, 2025 - Hypertension - Hyperlipidemia - PVCs - History of CVA - Right breast cancer, status post partial mastectomy (April 28, 2020) Current medications include Eliquis, amiodarone, colchicine, and diltiazem. # REVIEW OF SYSTEMS CARDIOVASCULAR: Chest pain negative, Palpitations negative, Edema negative, Pain while walking negative NEUROLOGICAL: Dizziness positive, Extremity weakness negative, Extremity numbness negative, Headaches negative, Seizures negative, Tremors negative MUSCULOSKELETAL: Joint pain negative, Joint swelling negative, Back pain negative, Neck pain negative INTEGUMENTARY: Breast lump negative, Breast discharge negative, Rash negative, Hives negative, Mole changes negative, Skin lesion negative CONSTITUTIONAL: Fatigue negative, Fever negative, Chills negative, Weight gain negative, Weight loss negative # PHYSICAL EXAMINATION GENERAL APPEARANCE: The patient is alert, oriented, and converses appropriately with normal speech. She is ambulatory and in no acute distress. Physical appearance is consistent with stated age. LUNGS: Respirations are unlabored. No use of accessory muscles is observed. Lungs are clear to auscultation bilaterally without rales, wheezes, or rhonchi. CARDIAC: Regular rate and rhythm on auscultation. No murmurs, rubs, or gallops are appreciated. No peripheral edema is observed. NEUROLOGICAL: Speech is fluent and appropriate. The patient is alert and oriented. No focal neurological deficits are observed during the encounter. PSYCHIATRIC: Mood and affect are appropriate. Behavior is cooperative and engaged throughout the examination. Twelve-lead EKG in the office today shows sinus rhythm at 74 bpm. There is left axis deviation. # ASSESSMENT AND PLAN Problem: Paroxysmal Atrial Fibrillation, status post PFO closure and pericarditis Posada Scores: CHADS-VASc = 5 (age >65 = 1, female = 1, hypertension = 1, prior CVA = 2) Assessment: The patient is a 69-year-old female with paroxysmal atrial fibrillation (AF) that developed following PFO closure and pericarditis in August 2024. Her arrhythmia was initially managed with amiodarone, Eliquis (apixaban), colchicine, and diltiazem. She has been off amiodarone prior and off colchicine for approximately two months and remains in sinus rhythm as monitored by an implantable loop recorder. There have been no documented recurrences of AF since discontinuation of antiarrhythmic therapy. Her CHADS-VASc score is 5, indicating a high risk for thromboembolic events and supporting continued anticoagulation. The etiology of her AF appears to be secondary to post-surgical pericarditis, which may be reversible; however, the risk of recurr (more content not included)... Normal [facility] CNOVon 03-10-2025 CNOV Normal [facility] Orthopedic Visit Reporton Orthopedic Visit Report [facility] [address] [place] [address] OFFICE VISIT Date of Service: 03/10/25 MR#: [id number] Acct: [id number] Name: BO JACOB Rep #: [id number] : 1955 Provider: Dr. Raymond jaimes DO Age/Sex: 69/F Location: [facility] [place] Status: Signed Intake Vital Signs 12/14/24 15:38 03/10/25 13:47 Height 5 ft 1 in 5 ft 1 in Weight: 180 lb 2 oz BMI 34.0 Intake Visit Reasons: LEFT KNEE Chief Complaint: Left Knee Pain Accompanied by: Self Is patient in pain?: Yes Pain scale (1-10): 3 Allergies adhesive tape Allergy (Intermediate, Verified 03/10/25 13:49) Hives oxycodone Allergy (Intermediate, Verified 03/10/25 13:49) Rash anastrozole Adverse Reaction (Severe, Verified 03/10/25 13:49) joint pain, anxiety, hot flashes Medications ???Medication ???Instructions ???Recorded ???Confirmed ???Type aspirin 81 mg tablet,delayed 81 mg PO DAILY 07/18/21 03/10/25 H istory release (Corky Low Dose Aspirin) cholecalciferol (vitamin D3) 125 250 mcg PO DAILY 11/18/23 03/10/25 History mcg (5,000 unit) tablet (Vitamin D3) hydroxyzine HCl 10 mg tablet 10 mg PO TID-QID PRN anxiety #90 0 04/29/24 03/10/25 Rx tabs apixaban 5 mg tablet (Eliquis) 5 mg PO BID 10/08/24 03/10/25 Hist ory diltiazem HCl 360 mg 360 mg PO QAM 10/08/24 03/10/25 Hi story capsule,extended release 24 hr (Cardizem CD) pantoprazole 20 mg tablet,delayed 20 mg PO QDAY #90 tabs 10/28/24 0 03/10/25 Rx release (Protonix) exemestane 25 mg tablet 25 mg PO DAILY #90 TABLETS 5 03/10/25 Rx ascorbate calcium (vitamin C) 500 500 mg PO QDAY 03/10/25 03/10/25 History mg tablet calcium acetate 667 mg tablet 667 mg PO ONCE 03/10/25 03/10/25 H istory clonazepam 0.5 mg tablet 0.5 mg PO BID PRN 03/10/25 Histor y Have you fallen in the past year?: No PFSH Medical History Pericardial effusion Atrial fibrillation with RVR Acute pericarditis Chest pain Paroxysmal A-fib Use of aromatase inhibitors Screening for osteoporosis Elevated alkaline phosphatase level History of transesophageal echocardiography (BLACK) PFO (patent foramen ovale) Wears glasses Marijuana [...] History of ectopic Esophageal reflux Surgical History History of surgical closure of patent foramen ovale (PFO) S/P lateral meniscus repair of left knee [...] 1-2 times per week duration: 15-30 minutes/day 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 Raymond Lagos, DO 03/10/25 0849. Part of today???s visit was documented by Anastacia Martell ATC, acting as scribe. BO JACOB is a 69 year old F here today for left knee pain. Patient states the knee tends to bother her when she is up and moving more. She states it will be achy at night when she is sleeping. S (more content not included)... Normal [facility] 03-08-2025 [facility] 03-06-2025 [facility] Normal [facility] ED NOTEon 03-06-2025 ED NOTE Normal [facility] ED NOTE Normal [facility] ED NOTE HNO ID: [id number] Author: RIO CARRANZA, RN Service: ? Author Type: Registered Nurse Type: ED Notes Filed: 03/06/2025 19:03 Note Text: Report to aruna hernandez rn Normal [facility] ED NOTE HNO ID: [id number] Author: RIO CARRANZA, BERNABE Service: ? Author Type: Registered Nurse Type: ED Notes Filed: 03/06/2025 18:55 Note Text: Dr merida at bedside for exam Normal [facility] ED NOTE HNO ID: [id number] Author: RIO CARRANZA, RN Service: ? Author Type: Registered Nurse Type: ED Notes Filed: 03/06/2025 18:53 Note Text: Pt having pain in her r heel for a few weeks, pt denies any known injury. Pain is worse with weightbearing Normal [facility] ED PROV NOTEon 03-06-2025 ED PROV NOTE Normal [facility] XR CALCANEUS 2V AXIAL/LAT RT on 03-06-2025 XR CALCANEUS 2V AXIAL/LAT RT Normal [facility] XR FOOT 3V AP/LAT/OBL RTon 0 03-06-2025 XR FOOT 3V AP/LAT/OBL RT Normal [facility] CNPNon 12-18-2024 CNPN Normal [facility] Absolute lymphocyte countOrd ered By: Verónica Lopez on 12-14-2024 Lymphocytes Auto (Unsp spec) [#/Vol] 1.73 10*3/uL 0.83-4.51 [facility] Absolute neutrophil countOrd ered By: Verónica Lopez on 12-14-2024 Neutrophils (Bld) [#/Vol] 4.6 10*3/uL 2.0-7.7 [facility] Anion gap in Serum or Plasma Ordered By: Verónica Lopez on 12-14-2024 Anion gap [Moles/Vol] 11 mmol/L 5-15 [facility] Automated lymphocyte count a s percentage of total leukocytesOrdered By: Verónica Lopez on 12-14-2024 Lymphocytes/100 WBC Auto (Unsp spec) 24.7 % 19-41 [facility] BUN/creatinine ratioOrdered By: Verónica Lopez on 12-14-2024 Urea nitrogen/Creatinine [Mass ratio] 17.8 mg/mg 10-20 [facility] Basophil percentageOrdered B y: Verónica Lopez on 12-14-2024 Basophils/100 WBC (Bld) 1.1 % High 0-1 [facility] Bilirubin, totalOrdered By: Verónica Lopez on 12-14-2024 Bilirubin [Mass/Vol] 0.23 mg/dL 0.00-1.30 [facility] CBC W/Diff, Automatedon 11-18 Absolute Lymph 1.73 X10 3/uL Normal 0.83-4.51 [facility] Comment on above: Performed By: #### L 100.0100, L500.4050 ####[facility] [address] [place], [address] Absolute Neut 4.6 X10 3/uL Normal 2.0-7.7 [facility] Comment on above: Performed By: #### L 100.0100, L500.4050 ####[facility] [address] [place], [address] Basophils/100 WBC (Bld) 1.1 % High 0-1 [facility] Comment on above: Performed By: #### L 100.0100, L500.4050 ####[facility] [address] [place], [address] Eosinophils/100 WBC (Bld) 2.4 % Normal 0-5 [facility] Comment on above: Performed By: #### L 100.0100, L500.4050 ####[facility] [address] [place], [address] Erythrocyte distribution width (RBC) [Ratio] 13.1 % Normal 11.6-14.6 [facility] Comment on above: Performed By: #### L 100.0100, L500.4050 ####[facility] [address] [place], [address] Hematocrit (Bld) [Volume fraction] 43.6 % Normal 37-47 [facility] Comment on above: Performed By: #### L 100.0100, L500.4050 ####[facility] [address] [place], [address] Hemoglobin (Bld) [Mass/Vol] 14.7 g/dL Normal 12.0-15.0 [facility] Comment on above: Performed By: #### L 100.0100, L500.4050 ####[facility] [address] [place], [address] IG% 0.300 Normal 0.0-0.9 [facility] Comment on above: Result Comment: IG% - Immature Granulocytes (promyelocytes, myelocytes and metamyelocytes) > 1% indicates that a LEFT SHIFT is Present. Performed By: #### L 100.0100, L500.4050 ####[facility] [address] [place], [address] Lymphocytes/100 WBC (Bld) 24.7 % Normal 19-41 [facility] Comment on above: Performed By: #### L 100.0100, L500.4050 ####[facility] [address] [place], [address] MCH (RBC) [Entitic mass] 31.8 pg Normal 27.0-32.0 [facility] Comment on above: Performed By: #### L 100.0100, L500.4050 ####[facility] [address] [place], [address] MCHC (RBC) [Mass/Vol] 33.7 g/dL Normal 32-36 [facility] Comment on above: Performed By: #### L 100.0100, L500.4050 ####[facility] [address] [place], [address] MCV (RBC) [Entitic vol] 94.4 fL Normal 81-99 [facility] Comment on above: Performed By: #### L 100.0100, L500.4050 ####[facility] [address] [place], [address] Monocytes/100 WBC (Bld) 5.8 % Normal 0-10 [facility] Comment on above: Performed By: #### L 100.0100, L500.4050 ####[facility] [address] [place], [address] Neutrophils/100 WBC (Bld) 65.7 % Normal 47-70 [facility] Comment on above: Performed By: #### L 100.0100, L500.4050 ####[facility] [address] [place], [address] Nucleated RBC (Bld) [#/Vol] 0 10*3/uL Normal 0-5 [facility] Comment on above: Performed By: #### L 100.0100, L500.4050 ####[facility] [address] [place], [address] Platelet mean volume (Bld) [Entitic vol] 9.6 fL Normal 6.2-12.0 [facility] Comment on above: Performed By: #### L 100.0100, L500.4050 ####[facility] [address] [place], [address] Platelets (Bld) [#/Vol] 278 10*3/uL Normal 150-450 [facility] Comment on above: Performed By: #### L 100.0100, L500.4050 ####[facility] [address] [place], [address] RBC (Bld) [#/Vol] 4.62 10*6/uL Normal 4.2-5.4 [facility] Comment on above: Performed By: #### L 100.0100, L500.4050 ####[facility] [address] [place], [address] RDW SD 44.8 fl High 35.1-43.9 [facility] Comment on above: Performed By: #### L 100.0100, L500.4050 ####[facility] [address] [place], [address] WBC (Bld) [#/Vol] 7.0 10*3/uL Normal 4.4-11.0 [facility] Comment on above: Performed By: #### L 100.0100, L500.4050 ####[facility] [address] [place], [address] Carbon dioxide, total [Moles /volume] in Central venous bloodOrdered By: Verónica Lopez on 12-14-2024 CO2 [Moles/Vol] 25.0 mmol/L 21.0-32.0 [facility] Chloride assayOrdered By: Alexx Lopez on 12-14-2024 Chloride [Moles/Vol] 106 mmol/L 98-108 [facility] Comprehensive Metabolic Prof ilon 12-14-2024 Albumin [Mass/Vol] 4.5 g/dL Normal 3.4-4.8 [facility] Comment on above: Performed By: #### L 100.0100, L500.4050 ####[facility] [address] [place], [address] Albumin/Globulin [Mass ratio] 2.2 {ratio} Normal 0.9-2.4 [facility] Comment on above: Performed By: #### L 100.0100, L500.4050 ####[facility] [address] [place], [address] ALK PHOS 115 U/L High 35-104 [facility] Comment on above: Performed By: #### L 100.0100, L500.4050 ####[facility] [address] [place], [address] ALT [Catalytic activity/Vol] 15 U/L Normal <=34 [facility] Comment on above: Performed By: #### L 100.0100, L500.4050 ####[facility] [address] [place], [address] AST [Catalytic activity/Vol] 19 U/L Normal <=31 [facility] Comment on above: Performed By: #### L 100.0100, L500.4050 ####[facility] [address] [place], [address] Bilirubin [Mass/Vol] 0.23 mg/dL Normal 0.00-1.30 [facility] Comment on above: Performed By: #### L 100.0100, L500.4050 ####[facility] [address] [place], [address] BUN/CRE 17.8 RATIO Normal 10-20 [facility] Comment on above: Performed By: #### L 100.0100, L500.4050 ####[facility] [address] [place], [address] Calcium [Mass/Vol] 9.8 mg/dL Normal 7.6-11.0 [facility] Comment on above: Performed By: #### L 100.0100, L500.4050 ####[facility] [address] [place], [address] Chloride [Moles/Vol] 106 mmol/L Normal 98-108 [facility] Comment on above: Performed By: #### L 100.0100, L500.4050 ####[facility] [address] [place], [address] CO2 [Moles/Vol] 25.0 mmol/L Normal 21.0-32.0 [facility] Comment on above: Performed By: #### L 100.0100, L500.4050 ####[facility] [address] [place], [address] Creatinine [Mass/Vol] 1.06 mg/dL Normal 0.70-1.20 [facility] Comment on above: Performed By: #### L 100.0100, L500.4050 ####[facility] [address] [place], [address] ECRCL 49.00 ml/min Low 50-250 [facility] Comment on above: Performed By: #### L 100.0100, L500.4050 ####[facility] [address] [place], [address] GAP 11 Normal 5-15 [facility] Comment on above: Performed By: #### L 100.0100, L500.4050 ####[facility] [address] [place], [address] GFR/1.73 sq M.predicted among non-blacks MDRD (S/P/Bld) [Vol rate/Area] 57 mL/min/{1.73_m2} Low >60 [facility] Comment on above: Result Comment: mL/m in/1.73m2 CKD-EPI Creatinine Equation (2020) Performed By: #### L 100.0100, L500.4050 ####[facility] [address] [place], [address] Globulin (S) [Mass/Vol] 2.1 g/dL Low 2.2-4.2 [facility] Comment on above: Performed By: #### L 100.0100, L500.4050 ####[facility] [address] [place], [address] Glucose [Mass/Vol] 99 mg/dL Normal 70-99 [facility] Comment on above: Performed By: #### L 100.0100, L500.4050 ####[facility] [address] [place], [address] Potassium [Moles/Vol] 3.9 mmol/L Normal 3.3-5.1 [facility] Comment on above: Performed By: #### L 100.0100, L500.4050 ####[facility] [address] [place], [address] Sodium [Moles/Vol] 142 mmol/L Normal 133-145 [facility] Comment on above: Performed By: #### L 100.0100, L500.4050 ####[facility] [address] [place], [address] T PROT 6.6 g/dL Normal 5.9-8.4 [facility] Comment on above: Performed By: #### L 100.0100, L500.4050 ####[facility] [address] [place], [address] Urea nitrogen [Mass/Vol] 19 mg/dL Normal 4-19 [facility] Comment on above: Performed By: #### L 100.0100, L500.4050 ####[facility] [address] [place], [address] Eosinophil percentageOrdered By: Verónica Lopez on 12-14-2024 Eosinophils/100 WBC (Bld) 2.4 % 0-5 [facility] Erythrocyte distribution wid th ratioOrdered By: Verónica Lopez on 12-14-2024 Erythrocyte distribution width (RBC) [Ratio] 13.1 % 11.6-14.6 [facility] Erythrocyte distribution wid th standard deviationOrdered By: Verónica Lopez on 12-14-2024 Erythrocyte distribution width (RBC) [Ratio] 44.8 fl High 35.1-43.9 [facility] Glomerular filtration rate ( GFR) estimation/1.73 sq m using serum, plasma, or whole bOrdered By: Verónica Lopez on 12-14-2024 GFR/1.73 sq M.predicted among non-blacks MDRD (S/P/Bld) [Vol rate/Area] 57 mL/min/{1.73_m2} Low >60 [facility] Comment on above: mL/min/1.73m2 CKD-EP I Creatinine Equation (2020) Hematocrit Auto (Bld) [Volum e fraction]Ordered By: Verónica Lopez on 12-14-2024 Hematocrit (Bld) [Volume fraction] 43.6 % 37-47 [facility] Hemoglobin measurementOrdere d By: Verónica Lopez on 12-14-2024 Hemoglobin (Bld) [Mass/Vol] 14.7 g/dL 12.0-15.0 [facility] Immature granulocytes/100 WB C Auto (Bld)Ordered By: Verónica Lopez on 12-14-2024 Immature granulocytes/100 WBC (Bld) 0.300 % 0.0-0.9 [facility] Comment on above: IG% - Immature Granu locytes (promyelocytes, myelocytes and metamyelocytes) > 1% indicates that a LEFT SHIFT is Present. Laboratory - Chemistry and C hemistry - challengeOrdered By: Verónica Lopez on 12-14-2024 AST [Catalytic activity/Vol] 19 U/L <32 [facility] MCV (mean corpuscular volume ) determinationOrdered By: Verónica Lopez 12-14-2024 MCV (RBC) [Entitic vol] 94.4 fL 81-99 [facility] Mean corpuscular hemoglobin (MCH) determinationOrdered By: Verónica Lopez 12-14-2024 MCH (RBC) [Entitic mass] 31.8 pg 27.0-32.0 [facility] Mean corpuscular hemoglobin concentration (MCHC) determinationOrdered By: Verónica Lopez 12-14-2024 MCHC (RBC) [Mass/Vol] 33.7 g/dL 32-36 [facility] Mean platelet volume determi nationOrdered By: Verónica Lopez 12-14-2024 Platelet mean volume (Bld) [Entitic vol] 9.6 fL 6.2-12.0 [facility] Monocyte percentageOrdered B y: Verónica Lopez on 12-14-2024 Monocytes/100 WBC (Bld) 5.8 % 0-10 [facility] Neutrophil percentageOrdered By: Verónica Lopez on 12-14-2024 Neutrophils/100 WBC (Bld) 65.7 % 47-70 [facility] Nucleated red blood cell per centageOrdered By: Verónica Lopez on 12-14-2024 Nucleated RBC/100 WBC (Bld) [Ratio] 0 % 0-5 [facility] Oncology Visit Reporton 11-18 Oncology Visit Report [facility] [place] [address] [place] [address] OFFICE VISIT Date of Service: 12/14/24 1533 MR#: [id number] Acct: [id number] Name: BO JACOB Rep #: [id number] : 1955 From: Verónica Lopez DRAWING TENDER DRAWING TENDER -C Age/Sex: 69/F Location: [facility] [place] Status: Signed HPI Subjective Date of Service 12/14/24 Chief Complaint h/o breast cancer on endocrine therapy History of Present Illness 69-year-old with stage IA (T1c, N0, M0) G3, ER positive, ME positive, 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 After skipping 2019 screening mammographies she felt a painless lump in the right breast and a diagnostic mammogram followed by a biopsy confirmed malignancy. April 28, 2020 she underwent a partial mastectomy with sentinel lymph node biopsy. Her work-up and surgery were done at [facility], she was then seen by medical oncology at [facility] with the recommendation of an adjuvant course of chemo immune therapy (ACTH/TCH) . She then went for a second opinion at [facility] were adjuvant chemoradiotherapy (TH) again recommended. She eventually made the decision to receive her treatment at [facility] close to home. CT chest June 07, [...] field. Patient drove all the way to [place] and then back just prior to 2020. Experienced an acute right lower back pain and right sided sciatica. Although she had similar but less severe episodes in the past, this by far was the worst she ever experienced. She was seen in [facility] emergency room and plain x-rays of [...] hyalinized tissue with rare benign ductal elements June Diagnostic mammogram US/Breast Limited Unilateral IMPRESSION: The palpable lump at the 9:00 position of the breast at 6 cm from the nipple corresponds to a 8 mm x 15 mm x 6 mm echogenic nodule most likely representing a lipoma. ASSESSMENT CATEGORY: BIRADS Category 2: Benign. Treatment summar (more content not included)... Normal [facility] Platelet countOrdered By: Alexx Lopez on 12-14-2024 Platelets (Bld) [#/Vol] 278 10*3/uL 150-450 [facility] Potassium measurement (mass/ volume)Ordered By: Verónica Lopez on 12-14-2024 Potassium (Unsp spec) [Mass/Vol] 3.9 mmol/L 3.3-5.1 [facility] RBC Auto (Bld) [#/Vol]Ordere d By: Verónica Lopez on 12-14-2024 RBC (Bld) [#/Vol] 4.62 10*6/uL 4.2-5.4 [facility] Serum creatinine measurement (mass/volume)Ordered By: Verónica Lopez on 12-14-2024 Creatinine [Mass/Vol] 1.06 mg/dL 0.70-1.20 [facility] Serum globulin measurementOr dered By: Verónica Lopez on 12-14-2024 Globulin (S) [Mass/Vol] 2.1 g/dL Low 2.2-4.2 [facility] Serum glucose measurement (m ass/volume)Ordered By: Verónica Lopez on 12-14-2024 Glucose [Mass/Vol] 99 mg/dL 70-99 [facility] Serum or plasma alanine torres otransferase (ALT) measurementOrdered By: Verónica Lopez on 12-14-2024 ALT [Catalytic activity/Vol] 15 U/L <35 [facility] Serum or plasma albumin giovany urement (mass/volume)Ordered By: Verónica Lopez on 12-14-2024 Albumin [Mass/Vol] 4.5 g/dL 3.4-4.8 [facility] Serum or plasma albumin/glob ulin mass ratioOrdered By: Verónica Lopez on 12-14-2024 Albumin/Globulin [Mass ratio] 2.2 {ratio} 0.9-2.4 [facility] Serum or plasma alkaline semaj sphatase measurementOrdered By: Verónica Lopez on 12-14-2024 ALP [Catalytic activity/Vol] 115 U/L High 35-104 [facility] Serum or plasma calcium giovany urement (mass/volume)Ordered By: Verónica Lopez on 12-14-2024 Calcium [Mass/Vol] 9.8 mg/dL 7.6-11.0 [facility] Serum or plasma urea nitroge n measurement (mass/volume)Ordered By: Verónica Lopez on 12-14-2024 Urea nitrogen [Mass/Vol] 19 mg/dL 4-19 [facility] Sodium levelOrdered By: Verónica Lopez on 12-14-2024 Sodium [Moles/Vol] 142 mmol/L 133-145 [facility] Total proteinOrdered By: Erica Lopez on 12-14-2024 Protein [Mass/Vol] 6.6 g/dL 5.9-8.4 [facility] White blood cell (WBC) count Ordered By: Verónica Lopez on 12-14-2024 WBC (Bld) [#/Vol] 7.0 10*3/uL 4.4-11.0 [facility] CNNURSEon 12-09-2024 CNNURSE [facility] CNPNon 12-09-2024 CNPN [facility] CNPNon 11-06-2024 CNPN [facility] CNOVon 11-04-2024 CNOV [facility] Bone density reportOrdered B y: Jessie Sara on 11-03-2024 Study report Skeletal system DXA [facility] Imaging Services [address] [place], [place] [address] Dexa Bone Density Study MR#: [id number] Acct: [id number] Name: BO JACOBILE Rep #: [id number] : 1955 F 69 From: Christina Melo MD PCP: KEYA Reaves Status: REG CLI Study:Dexa Bone Density Study Date of Exam: 11/03/24 Exam# [id number] Ordering Dr: Verónica Flores NP PROCEDURE: DEXA BONE DENSITY STUDY N/A REASON FOR EXAM: SCREENING FOR OSTEOPOROSIS F, age 69 y/o . TECHNIQUE: DEXA scan of the lumbar spine and both hips. COMPARISON: 10/31/2022 FINDINGS: T-SCORES Lumbar spine: 0.2 (BMD 1.074); Previously: -0.8 Left hip: -0.3 (BMD 0.906); Previously: -0.8 Right hip: -0.4 (BMD 0.893); Previously: -1.2 Left forearm: ( ); Previously: Right forearm: ( ); Previously: Right hip FRAX* Results: 10 Year Probability of Fracture: Hip Fracture(1): 0.5% Major Osteoporotic Fracture(2): 7.4% Left hip FRAX* Results: 10 Year Probability of Fracture: Hip Fracture(1): -0.8% Major Osteoporotic Fracture(2): 8.3% *FRAX is a trademark of the [employer]'s [place] for Metabolic Bone Disease, World Health Organization (WHO) Collaborating [place]. 1-The 10-year probability of fracture may be lower than reported if the patient has received treatment. 2-Major Osteoporotic Fracture: Clinical Spine, Forearm, Hip or Shoulder. The T-scores are also available for review on the [facility] PACS or by accessing the [facility] electronic medical record. BD/Dexa Bone Density Study IMPRESSION: Improving BMD of the lumbar spine and bilateral hips. Reading Location: [facility] CC: KEYA Dias; KEYA Lopez ~ Home Attendant: Signed [facility] Breast imaging reportOrdered By: Sherine Gómez on 11-03-2024 Study report [facility] Imaging Services [address] [place], [place] [id number] SCRN MAMM (CAD)W/AQUILES BILAT MR#: [id number] Acct: [id number] Name: BO JACOB Rep #: [id number] : 1955 F 69 From: Myesha Gómez MD PCP: KEYA Reaves Status: REG CLI Study:SCRN MAMM (CAD)W/AQUILES BILAT Date of Exa m: 11/03/24 Exam# [id number] Ordering Dr: Verónica Flores NP PROCEDURE: SCRN MAMM (CAD)W/AQUILES BILAT REASON FOR EXAM: F, Age 69 y/o, presents for annual screening mammogram. TECHNIQUE: Bilateral screening digital breast tomosynthesis with 2D and 3D images. Computeraided detection. COMPARISON: 06/19/2024, 03/30/2024, 10/31/2022, 11/04/2023 FINDINGS: There are scattered areas of fibroglandular density. There are stable postsurgical changes in the lower inner right breast at middle depth. No suspicious masses, areas of developing architectural distortion, or suspicious calcifications. BI/SCRN MAMM (CAD)W/AQUILES BILAT IMPRESSION: There is no mammographic evidence of malignancy. BI-RADS 2: BENIGN. RECOMMEND ANNUAL MAMMOGRAPHIC SCREENING. Follow-up code: Routine Follow-up The patient will be notified of the results by letter. Reading Location: [facility] CC: KEYA Dias; KEYA Lopez ~ Home Attendant: Signed [facility] Dexa Bone Density Studyon Dexa Bone Density Study [facility] Imaging Services [address] [place] [address] Dexa Bone Density Study MR#: [id number] Acct: [id number] Name: BO JACOB Rep #: [id number] : 1955 F 69 From: Jessie Melo MD PCP: KEYA Reaves Status: REG CLI Study: Dexa Bone Density Study Date of Exam: 11/03/24 Exam# [id number] Ordering Dr: Verónica Loepz NP, NP PROCEDURE: DEXA BONE DENSITY STUDY N/A REASON FOR EXAM: SCREENING FOR OSTEOPOROSIS F, age 69 y/o . TECHNIQUE: DEXA scan of the lumbar spine and both hips. COMPARISON: 10/31/2022 FINDINGS: T-SCORES Lumbar spine: 0.2 (BMD 1.074); Previously: -0.8 Left hip: -0.3 (BMD 0.906); Previously: -0.8 Right hip: -0.4 (BMD 0.893); Previously: -1.2 Left forearm: ( ); Previously: Right forearm: ( ); Previously: Right hip FRAX* Results: 10 Year Probability of Fracture: Hip Fracture(1): 0.5% Major Osteoporotic Fracture(2): 7.4% Left hip FRAX* Results: 10 Year Probability of Fracture: Hip Fracture(1): -0.8% Major Osteoporotic Fracture(2): 8.3% *FRAX is a trademark of the [employer]'s [place] for Metabolic Bone Disease, World Health Organization (WHO) Collaborating [place]. 1-The 10-year probability of fracture may be lower than reported if the patient has received treatment. 2-Major Osteoporotic Fracture: Clinical Spine, Forearm, Hip or Shoulder. The T-scores are also available for review on the [facility] PACS or by accessing the [facility] electronic medical record. BD/Dexa Bone Density Study IMPRESSION: Improving BMD of the lumbar spine and bilateral hips. Reading Location: [facility] CC: KEYA Dias; KEYA Lopez Home Attendant: Signed Normal [facility] SCRN MAMM (CAD)W/AQUILES BILATo n 11-03-2024 SCRN MAMM (CAD)W/AQUILES BILAT [facility] Imaging Services [address] [place] [address] SCRN MAMM (CAD)W/AQUILES BILAT MR#: [id number] Acct: [id number] Name: BO JACOB Rep #: [id number] : 1955 F 69 From: Sherine Gómez MD PCP: KEYA Reaves Status: REG CLI Study: SCRN MAMM (CAD)W/AQUILES BILAT Date of Exam: 10/17 04/12 Exam# [id number] Ordering Dr: Verónica Lopez NP, NP PROCEDURE: SCRN MAMM (CAD)W/AQUILES BILAT REASON FOR EXAM: F, Age 69 y/o, presents for annual screening mammogram. TECHNIQUE: Bilateral screening digital breast tomosynthesis with 2D and 3D images. Computer aided detection. COMPARISON: 06/19/2024, 03/30/2024, 10/31/2022, 11/04/2023 FINDINGS: There are scattered areas of fibroglandular density. There are stable postsurgical changes in the lower inner right breast at middle depth. No suspicious masses, areas of developing architectural distortion, or suspicious calcifications. BI/SCRN MAMM (CAD)W/AQUILES BILAT IMPRESSION: There is no mammographic evidence of malignancy. BI-RADS 2: BENIGN. RECOMMEND ANNUAL MAMMOGRAPHIC SCREENING. Follow-up code: Routine Follow-up The patient will be notified of the results by letter. Reading Location: [id number] CC: KEYA Dias; KEYA Lopez Home Attendant: Signed Normal [facility] Abdomen Limitedon 10-31-2024 Abdomen Limited [facility] Imaging Services [address] [place], [place] [id number] Abdomen Limited MR#: [id number] Acct: [id number] Name: BO JACOB Rep #: [id number] : 1955 F 69 From: Paulo Wilkerson PCP: KEYA Reaves Status: REG CLI Study: Abdomen Limited Date of Exam: 10/31/24 Exam# [id number] Ordering Dr: Antonia Escalante MD PROCEDURE: ABDOMEN [...] Small gallbladder polyps. Reading Location: [facility] CC: DRAWING TENDER-Jennifer Dias; Dr. Antonia Escalante MD Home Attendant: Signed Normal [facility] CNOVon 10-28-2024 CNOV [facility] Magnetic resonance imaging r eportOrdered By: Jessie Cardenas on 10-28-2024 Study report [facility] Imaging Services [address] [place] [address] Spine Lumbar (Routine) MR#: [id number] Acct: [id number] Name: BO JACOB Rep #: [id number] : 1955 F 69 From: Christina Cardenas MD PCP: KEYA Reaves Status: REG CLI Study:Spine Lumbar (Routine) Date of Exam: 10/27/24 Exam# [id number] Ordering Dr: Aruna Barclay MD PROCEDURE: SPINE LUMBAR (ROUTINE) (MRISPL), 10/27/2024 REASON FOR EXAM: RADIULOPATHY TECHNIQUE: Multisequence multiplanar MR of the lumbar spine was performed without IV contrast. COMPARISON: 08/24/2021 FINDINGS: Vertebral body heights are preserved. T1 bright likely vertebral body hemangiomas within T11, L4 and L5. Few prominent Schmorl's nodes. Similar mild likely degenerative grade 1 anterolisthesis at L4-L5. Conus medullaris terminates normally at the L1 inferior endplate level. Crowdingof the nerve roots of the cauda equina related to the below stenoses. L1-2: Mild diffuse disc bulging. Mild facet arthropathy. No significant spinalcanal or foraminal stenosis. L2-3: Diffuse disc bulging with suspected tiny annular fissure in the right foraminal region. Ligamentum flavum hypertrophy. Facet arthropathy with a tiny synovial cyst posteriorly on the left. Minimal focal spinal canal stenosis. No significant foraminal stenosis.. L3-4: Diffuse disc bulging. Ligamentum flavum hypertrophy. Facet arthropathy. Moderate focal spinal canal stenosis with incomplete effacement of CSF. Mild bilateral foraminal stenoses. L4-5: Anterolisthesis as above with disc uncovering. Diffuse disc bulging with suspected tiny annular fissure in the left foraminal region. Ligamentum flavum hypertrophy. Facet arthropathy. Lmskmexr-kl-dxinjb focal spinal canal stenosis with virtually complete effacement of CSF. Narrowing of the bilateral lateral recesses. Mild/moderate bilateral foraminal stenoses. L5-S1: Mild diffuse disc bulging. Facet arthropathy. No significant focal spinal canal stenosis. Mild bilateral foraminal stenosis. Other: At least imaged three incompletely imaged right lobe hepatic lesions superiorly and inferiorly on the joint special operations up to 2.5 cm, possibly cysts, but not well evaluated. Cervical and thoracic spondylosis not well evaluated. MRI/Spine Lumbar (Routine) IMPRESSION: 1. Multilevel spondylosis as above. Spinal canal stenoses up to [id number]-cf-hdpgyo at L4-L5. No high-grade foraminal stenosis identified. 2. Partially imaged lesions presumably reflect cysts but are incompletely characterized, up to at least 2.5 cm. Given reported history of malignancy, would recommend confirmation either with ultrasound or multiphase hepatic protocol CT or MRI. If US is pursued, all three lesions would need to be visualized which may be difficult due to small size of the smaller lesions. Comparison with any available outside imaging may also be helpful. 3. Additional description as above. Reading Location: [id number] CC: KEYA Dias; Dr. Mariajose Barclay MD ~ Home Attendant: Signed [facility] Radiation Oncology Visiton 0 10-27-2024 Radiation Oncology Visit [facility] [place] [address] OFFICE VISIT Date of Service: 10/27/24 1430 MR#: [id number] Acct: [id number] Name: BO JACOB Rep #: [id number] : 1955 From: João Kong DO Age/Sex: 69/F Location: [facility] [place] [facility] Status: Signed Intake Vital Signs 10/08/24 17:44 10/27/24 14:34 Height 5 ft 1 in 5 ft 1 in Weight: 173 lb 2 oz BMI 32.7 BP 174/76 H Blood Pressure Location Lt brachial Position Sitting Respiration 18 Pulse 86 Pulse Source Monitor Temp 97.8 F Temperature Source Temporal Artery Pulse Oximetry (%) 100 Oxygen Delivery Method room air Intake Visit Reasons: MISSED BREAST F/U Accompanied by: Self Is patient in pain?: No Allergies acetaminophen (From [place]) Allergy (Intermediate, Verified 10/27/24 14:32) Rash adhesive tape Allergy (Intermediate, Verified 10/27/24 14:32) Hives hydrocodone (From [place]) Allergy (Intermediate, Verified 10/27/24 14:32) Rash oxycodone Allergy (Intermediate, Verified 10/27/24 14:32) Rash anastrozole Adverse Reaction (Severe, Verified 10/27/24 14:32) joint pain, anxiety, hot flashes Medications ???Medication ???Instructions ???Recorded ???Confirmed ???Type aspirin 81 mg tablet,delayed 81 mg PO DAILY 07/18/21 10/27/24 H istory release (Corky Low Dose Aspirin) cholecalciferol (vitamin D3) 125 250 mcg PO DAILY 11/18/23 10/27/24 History mcg (5,000 unit) tablet (Vitamin D3) hydroxyzine HCl 10 mg tablet 10 mg PO TID-QID PRN anxiety #90 0 04/29/24 10/27/24 Rx tabs exemestane 25 mg tablet 25 mg PO DAILY #90 TABLETS 5 10/27/24 Rx amiodarone 400 mg tablet 400 mg PO QDAY 10/08/24 10/27/24 H istory apixaban 5 mg tablet (Eliquis) 5 mg PO BID 10/08/24 10/27/24 Hist ory colchicine 0.6 mg tablet 0.6 mg PO QDAY 10/08/24 10/27/24 H istory diltiazem HCl 360 mg 360 mg PO QAM 10/08/24 10/27/24 Hi story capsule,extended release 24 hr (Cardizem CD) pantoprazole 20 mg tablet,delayed 20 mg PO QDAY 10/08/24 10/27/24 H istory release (Protonix) clonazepam 0.5 mg tablet 0.5 mg PO BID #60 tabs 10/09/24 Rx Have you fallen in the past year?: No PFSH PFSH Medical History Paroxysmal A-fib Use of aromatase inhibitors Screening for osteoporosis Elevated alkaline phosphatase level History of transesophageal echocardiography (BLACK) PFO (patent foramen ovale) Wears glasses Marijuana [...] 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6 mg tablet 0.6 mg PO QDAY 10/08/24 Unknown Hi story diltiazem HCl 360 mg 360 mg PO QAM 10/08/24 Unknown His tory capsule,extended release 24 hr (Cardizem CD) pantoprazole 20 mg tablet,delayed 20 mg PO QDAY 10/08/24 Unknown Hi story release (Protonix) clonazepam 0.5 mg tablet 0.5 mg PO BID #60 tabs 10/09/24 Un known Rx Allergy/AdvReac Type Severity Reaction Status Date / Time acetaminophen (From [place]) Allergy Intermediate Rash Verified 10/27/24 14:32 adhesive tape Allergy Intermediate Hives Verified 10/27/24 14:32 hydrocodone (From [place]) Allergy Intermediate Rash Verified 10/27/24 14:32 oxycodone Allergy Intermediate Rash Verified 10/27/24 14:32 anastrozole AdvReac Severe joint Verified 10/27/24 14:32 pain, anxiety, hot flashes Famil (more content not included)... Normal [facility] Spine Lumbar (Routine)on Spine Lumbar (Routine) [facility] Imaging Services [facility] [place] [address] Spine Lumbar (Routine) MR#: [id number] Acct: [id number] Name: BO JACOB Rep #: [id number] : 1955 F 69 From: Jessie Cardenas MD PCP: KEYA Reaves Status: REG CLI Study: Spine Lumbar (Routine) Date of Exam: 10/27/24 Exam# [id number] Ordering Dr: Mariajose Barclay MD PROCEDURE: SPINE LUMBAR (ROUTINE) (MRISPL), 10/27/2024 REASON FOR EXAM: RADIULOPATHY TECHNIQUE: Multisequence multiplanar MR of the lumbar spine was performed without IV contrast. COMPARISON: 08/24/2021 FINDINGS: Vertebral body heights are preserved. T1 bright likely vertebral body hemangiomas within T11, L4 and L5. Few prominent Schmorl's nodes. Similar mild likely degenerative grade 1 anterolisthesis at L4-L5. Conus medullaris terminates normally at the L1 inferior endplate level. Crowding of the nerve roots of the cauda equina related to the below stenoses. L1-2: Mild diffuse disc bulging. Mild facet arthropathy. No significant spinal canal or foraminal stenosis. L2-3: Diffuse disc bulging with suspected tiny annular fissure in the right foraminal region. Ligamentum flavum hypertrophy. Facet arthropathy with a tiny synovial cyst posteriorly on the left. Minimal focal spinal canal stenosis. No significant foraminal stenosis.. L3-4: Diffuse disc bulging. Ligamentum flavum hypertrophy. Facet arthropathy. Moderate focal spinal canal stenosis with incomplete effacement of CSF. Mild bilateral foraminal stenoses. L4-5: Anterolisthesis as above with disc uncovering. Diffuse disc bulging with suspected tiny annular fissure in the left foraminal region. Ligamentum flavum hypertrophy. Facet arthropathy. Kcpmqnvp-xx-zpjvcy focal spinal canal stenosis with virtually complete effacement of CSF. Narrowing of the bilateral lateral recesses. Mild/moderate bilateral foraminal stenoses. L5-S1: Mild diffuse disc bulging. Facet arthropathy. No significant focal spinal canal stenosis. Mild bilateral foraminal stenosis. Other: At least imaged three incompletely imaged right lobe hepatic lesions superiorly and inferiorly on the joint special operations up to 2.5 cm, possibly cysts, but not well evaluated. Cervical and thoracic spondylosis not well evaluated. MRI/Spine Lumbar (Routine) IMPRESSION: 1. Multilevel spondylosis as above. Spinal canal stenoses up to pdwohnuo-zu-kpedtd at L4-L5. No high-grade foraminal stenosis identified. 2. Partially imaged lesions presumably reflect cysts but are incompletely characterized, up to at least 2.5 cm. Given reported history of malignancy, would recommend confirmation either with ultrasound or multiphase hepatic protocol CT or MRI. If US is pursued, all three lesions would need to be visualized which may be difficult due to small size of the smaller lesions. Comparison with any available outside imaging may also be helpful. 3. Additional description as above. Reading Location: [id number] CC: KEYA Dias; Dr. Mariajose Barclay MD Home Attendant: Signed [facility] 10-26-2024 [facility] Normal [facility] 10-01-2024 [facility] Basic metabolic 2000 panelon 09-30-2024 Anion gap [Moles/Vol] 10 mmol/L Normal 8-15 [facility] Comment on above: Order Comment: Speci men Type: BLOOD SPECIMENOrdering Facility: [facility] Address: [address] [place] [address] Performed By: #### 2 [id number] ####[facility] GENERAL LABORATORYCLIA [id number] [place] [address] [place] Calcium [Mass/Vol] 8.1 mg/dL Low 8.5-10.2 [facility] Comment on above: Order Comment: Speci men Type: BLOOD SPECIMENOrdering Facility: [facility] Address: [address] [place] [address] Performed By: #### 2 4321-2 ####[facility] LABORATORYCLIA [id number] [place] [address] [place] Chloride [Moles/Vol] 107 mmol/L Normal 98-107 [facility] Comment on above: Order Comment: Speci men Type: BLOOD SPECIMENOrdering Facility: [facility] Address: [address] [place] [address] Performed By: #### 2 4321-2 ####[facility] LABORATORYCLIA [id number] [address] [place] CO2 [Moles/Vol] 20 mmol/L Low 22-30 [facility] Comment on above: Order Comment: Speci men Type: BLOOD SPECIMENOrdering Facility: [facility] Address: [address] [place] [address] Performed By: #### 2 4321-2 ####[facility] LABORATORYCLIA [id number] [place] [address] [place] Creatinine [Mass/Vol] 0.85 mg/dL Normal 0.58-0.96 [facility] Comment on above: Order Comment: Speci men Type: BLOOD SPECIMENOrdering Facility: [facility] Address: [address] [place] [address] Performed By: #### 2 4321-2 ####[facility] LABORATORYCLIA [id number] [place] [address] [place] Creatinine and Glomerular filtration rate.predicted panel (S/P/Bld) 74 mL/min/1.73m??? Normal >=60 [facility] Comment on above: Order Comment: Prince omer Type: BLOOD SPECIMENOrdering Facility: [facility] Address: [address] [place] [address] Result Comment: Conchita mated Glomerular Filtration Rate [...] reflect actual GFR. Performed By: #### 2 4321-2 ####[facility] LABORATORYCLIA [id number] [place] [address] [place] Glucose [Mass/Vol] 129 mg/dL High 74-99 [facility] Comment on above: Order Comment: Prince omer Type: BLOOD SPECIMENOrdering Facility: [facility] Address: [address] [place] [address] Result Comment: The [employer] (ADA) provides guidance for cutoff [...] Standards of Medical Care in Diabetes 2016, [employer]. Diabetes Care. 2016.39(Suppl 1). Performed By: #### 2 4321-2 ####[facility] LABORATORYCLIA [id number] [place] [id number] [place] Potassium [Moles/Vol] 3.7 mmol/L Normal 3.7-5.1 [facility] Comment on above: Order Comment: Prince omer Type: BLOOD SPECIMENOrdering Facility: [facility] Address: [address] [place] [address] Performed By: #### 2 4321-2 ####[facility] LABORATORYCLIA [id number] [place] [address] [place] Sodium [Moles/Vol] 137 mmol/L Normal 136-144 [facility] Comment on above: Order Comment: Speci men Type: BLOOD SPECIMENOrdering Facility: [facility] Address: [address] [place] [address] Performed By: #### 2 4321-2 ####[facility] LABORATORYCLIA [id number] [place] [address] [place] Urea nitrogen [Mass/Vol] 14 mg/dL Normal 7-21 [facility] Comment on above: Order Comment: Speci men Type: BLOOD SPECIMENOrdering Facility: [facility] Address: [address] [place] [address] Performed By: #### 2 4321-2 ####[facility] LABORATORYCLIA [id number] [place] [address] [place] Anion gap [Moles/Vol] 11 mmol/L Normal 8-15 [facility] Comment on above: Order Comment: Speci men Type: BLOOD SPECIMENOrdering Facility: [facility] Address: [address] [place] [address] Performed By: #### 2 4321-2 ####[facility] LABORATORYCLIA [id number] [place] [address] [place] Calcium [Mass/Vol] 9.2 mg/dL Normal 8.5-10.2 [facility] Comment on above: Order Comment: Speci men Type: BLOOD SPECIMENOrdering Facility: [facility] Address: [address] [place] [address] Performed By: #### 2 4321-2 ####[facility] LABORATORYCLIA [id number] [place] [address] [place] Chloride [Moles/Vol] 97 mmol/L Low 98-107 [facility] Comment on above: Order Comment: Speci men Type: BLOOD SPECIMENOrdering Facility: [facility] Address: [address] [place] [address] Performed By: #### 2 4321-2 ####[facility] LABORATORYCLIA [id number] [place] [id number] [place] CO2 [Moles/Vol] 21 mmol/L Low 22-30 [facility] Comment on above: Order Comment: Speci men Type: BLOOD SPECIMENOrdering Facility: [facility] Address: [address] [place] [address] Performed By: #### 2 4321-2 ####[facility] LABORATORYCLIA [id number] [address] [place] [facility] Creatinine [Mass/Vol] 0.94 mg/dL Normal 0.58-0.96 [facility] Comment on above: Order Comment: Speci men Type: BLOOD SPECIMENOrdering Facility: [facility] Address: [address] [place] [address] Performed By: #### 2 4321-2 ####[facility] LABORATORYCLIA [id number] [address] Creatinine and Glomerular filtration rate.predicted panel (S/P/Bld) 66 mL/min/1.73m??? Normal >=60 [facility] Comment on above: Order Comment: Speci men Type: BLOOD SPECIMENOrdering Facility: [facility] Address: [address] [place] [address] Result Comment: Conchita mated Glomerular Filtration Rate [...] reflect actual GFR. Performed By: #### 2 4321-2 ####[facility] LABORATORYCLIA [id number] [address] [place] Glucose [Mass/Vol] 97 mg/dL Normal 74-99 [facility] Comment on above: Order Comment: Speci men Type: BLOOD SPECIMENOrdering Facility: [facility] Address: [address] [place] [address] Result Comment: The [employer] Diabetes [employer] (ADA) provides guidance for cutoff [...] Standards of Medical Care in Diabetes 2016, [employer]. Diabetes Care. 2016.39(Suppl 1). Performed By: #### 2 4321-2 ####[facility] LABORATORYCLIA [id number] [place] [address] [place] Potassium [Moles/Vol] 3.7 mmol/L Normal 3.7-5.1 [facility] Comment on above: Order Comment: Prince peter Type: BLOOD SPECIMENOrdering Facility: [facility] Address: [address] [place] [address] Performed By: #### 2 4321-2 ####[facility] LABORATORYCLIA [id number] [place] [address] [place] Sodium [Moles/Vol] 129 mmol/L Low 136-144 [facility] Comment on above: Order Comment: Anthonyi men Type: BLOOD SPECIMENOrdering Facility: [facility] Address: [address] [place] [address] Performed By: #### 2 4321-2 ####[facility] LABORATORYCLIA [id number] [place] [address] [place] Urea nitrogen [Mass/Vol] 18 mg/dL Normal 7-21 [facility] Comment on above: Order Comment: Anthonyi men Type: BLOOD SPECIMENOrdering Facility: [facility] Address: [address] [place] [address] Performed By: #### 2 4321-2 ####[facility] LABORATORYCLIA [id number] [place] [address] [place] CASE MANAGEMon 09-30-2024 CASE MANAGEM Normal [facility] CASE MANAGEM Normal [facility] CNDSon 09-30-2024 CNDS Normal [facility] CNPNon 09-30-2024 CNPN Normal [facility] CONSULT PROGon 09-30-2024 CONSULT PROG Normal [facility] CONSULT PROG Normal [facility] THERAPY NTon 09-30-2024 THERAPY NT Normal [facility] THERAPY NT Normal [facility] CBC W Auto Differential pane l (Bld)on 09-29-2024 Basophils (Bld) [#/Vol] 0.05 10*3/uL Normal <0.11 [facility] Comment on above: Order Comment: Speci men Type: BLOOD SPECIMENOrdering Facility: [facility] Address: [address] [place] [address] Performed By: #### 5 7021-8 ####[facility] LABORATORYCLIA [id number] [address] [place] Basophils/100 WBC (Bld) 0.8 % Normal [facility] Comment on above: Order Comment: Speci men Type: BLOOD SPECIMENOrdering Facility: [facility] Address: [address] [place] [address] Performed By: #### 5 7021-8 ####[facility] LABORATORYCLIA [id number] [address] [place] Differential cell count method Nom (Bld) Auto Normal [facility] Comment on above: Order Comment: Speci men Type: BLOOD SPECIMENOrdering Facility: [facility] Address: [address] [place] [address] Performed By: #### 5 7021-8 ####[facility] LABORATORYCLIA [id number] [place] [address] [place] Eosinophils (Bld) [#/Vol] 0.23 10*3/uL Normal <0.46 [facility] Comment on above: Order Comment: Speci men Type: BLOOD SPECIMENOrdering Facility: [facility] Address: [address] [place] [address] Performed By: #### 5 7021-8 ####[facility] LABORATORYCLIA [id number] [address] [place] Eosinophils/100 WBC (Bld) 3.8 % Normal [facility] Comment on above: Order Comment: Speci men Type: BLOOD SPECIMENOrdering Facility: [facility] Address: [address] [place] [address] Performed By: #### 5 7021-8 ####[facility] LABORATORYCLIA [id number] [address] [place] Erythrocyte distribution width (RBC) [Ratio] 12.4 % Normal 11.5-15.0 [facility] Comment on above: Order Comment: Speci men Type: BLOOD SPECIMENOrdering Facility: [facility] Address: [address] [place] [address] Performed By: #### 5 7021-8 ####[facility] LABORATORYCLIA [id number] [address] STATES [facility] Hematocrit (Bld) [Volume fraction] 43.3 % Normal 36.0-46.0 [facility] Comment on above: Order Comment: Speci men Type: BLOOD SPECIMENOrdering Facility: [facility] Address: [address] [place] [address] Performed By: #### 5 7021-8 ####[facility] LABORATORYCLIA [id number] [address] [place] Hemoglobin (Bld) [Mass/Vol] 14.9 g/dL Normal 11.5-15.5 [facility] Comment on above: Order Comment: Speci men Type: BLOOD SPECIMENOrdering Facility: [facility] Address: [address] [place] [address] Performed By: #### 5 7021-8 ####[facility] LABORATORYCLIA [id number] [place] [address] [place] Immature granulocytes (Bld) [#/Vol] 0.04 10*3/uL Normal <0.10 [facility] Comment on above: Order Comment: Speci men Type: BLOOD SPECIMENOrdering Facility: [facility] Address: [address] [place] [address] Performed By: #### 5 7021-8 ####[facility] LABORATORYCLIA [id number] [address] [place] Immature granulocytes/100 WBC (Bld) 0.7 % Normal [facility] Comment on above: Order Comment: Speci men Type: BLOOD SPECIMENOrdering Facility: [facility] Address: [address] [place] [address] Performed By: #### 5 7021-8 ####[facility] LABORATORYCLIA [id number] [address] [place] Lymphocytes (Bld) [#/Vol] 1.10 10*3/uL Normal 1.00-4.00 [facility] Comment on above: Order Comment: Speci men Type: BLOOD SPECIMENOrdering Facility: [facility] Address: [address] [place] [address] Performed By: #### 5 7021-8 ####[facility] LABORATORYCLIA [id number] [address] Lymphocytes/100 WBC (Bld) 18.4 % Normal [facility] Comment on above: Order Comment: Speci men Type: BLOOD SPECIMENOrdering Facility: [facility] Address: [address] [place] [address] Performed By: #### 5 7021-8 ####[facility] LABORATORYCLIA [id number] [place] [address] [place] MCH (RBC) [Entitic mass] 30.9 pg Normal 26.0-34.0 [facility] Comment on above: Order Comment: Speci men Type: BLOOD SPECIMENOrdering Facility: [facility] Address: [address] [place] [address] Performed By: #### 5 7021-8 ####[facility] LABORATORYCLIA [id number] [address] [place] [facility] MCHC (RBC) [Mass/Vol] 34.4 g/dL Normal 30.5-36.0 [facility] Comment on above: Order Comment: Speci men Type: BLOOD SPECIMENOrdering Facility: [facility] Address: [address] [place] [address] Performed By: #### 5 7021-8 ####[facility] LABORATORYCLIA [id number] [address] OF [facility] MCV (RBC) [Entitic vol] 89.8 fL Normal 80.0-100.0 [facility] Comment on above: Order Comment: Speci men Type: BLOOD SPECIMENOrdering Facility: [facility] Address: [address] [place] [address] Performed By: #### 5 7021-8 ####[facility] LABORATORYCLIA [id number] [address] [place] Monocytes (Bld) [#/Vol] 0.56 10*3/uL Normal <0.87 [facility] Comment on above: Order Comment: Speci men Type: BLOOD SPECIMENOrdering Facility: [facility] Address: [address] [place] [address] Performed By: #### 5 7021-8 ####[facility] LABORATORYCLIA [id number] [address] STATES [facility] Monocytes/100 WBC (Bld) 9.4 % Normal [facility] Comment on above: Order Comment: Speci men Type: BLOOD SPECIMENOrdering Facility: [facility] Address: [address] [place] [address] Performed By: #### 5 7021-8 ####[facility] LABORATORYCLIA [id number] [address] [place] Neutrophils (Bld) [#/Vol] 4.00 10*3/uL Normal 1.45-7.50 [facility] Comment on above: Order Comment: Speci men Type: BLOOD SPECIMENOrdering Facility: [facility] Address: [address] [place] [address] Performed By: #### 5 7021-8 ####[facility] LABORATORYCLIA [id number] [address] Neutrophils/100 WBC (Bld) 66.9 % Normal [facility] Comment on above: Order Comment: Speci men Type: BLOOD SPECIMENOrdering Facility: [facility] Address: [address] [place] [address] Performed By: #### 5 7021-8 ####[facility] LABORATORYCLIA [id number] [address] [place] Nucleated RBC (Bld) [#/Vol] 10*3/uL Normal <0.01 [facility] Comment on above: Order Comment: Speci men Type: BLOOD SPECIMENOrdering Facility: [facility] Address: [address] [place] [address] Performed By: #### 5 7021-8 ####[facility] LABORATORYCLIA [id number] [address] [place] Nucleated RBC/100 WBC (Bld) [Ratio] 0.0 /100 WBC Normal [facility] Comment on above: Order Comment: Speci men Type: BLOOD SPECIMENOrdering Facility: [facility] Address: [address] [place] [address] Performed By: #### 5 7021-8 ####[facility] LABORATORYCLIA [id number] [address] [place] Platelet mean volume (Bld) [Entitic vol] 9.6 fL Normal 9.0-12.7 [facility] Comment on above: Order Comment: Speci men Type: BLOOD SPECIMENOrdering Facility: [facility] Address: [address] [place] [address] Performed By: #### 5 7021-8 ####[facility]ORATORYCLIA [id number] [place] [address] [place] Platelets (Bld) [#/Vol] 278 10*3/uL Normal 150-400 [facility] Comment on above: Order Comment: Speci men Type: BLOOD SPECIMENOrdering Facility: [facility] Address: [address] [place] [address] Performed By: #### 5 7021-8 ####[facility] LABORATORYCLIA [id number] [address] OF [facility] RBC (Bld) [#/Vol] 4.82 10*6/uL Normal 3.90-5.20 [facility] Comment on above: Order Comment: Speci men Type: BLOOD SPECIMENOrdering Facility: [facility] Address: [address] [place] [address] Performed By: #### 5 7021-8 ####[facility] LABORATORYCLIA [id number] [address] OF [facility] WBC (Bld) [#/Vol] 5.98 10*3/uL Normal 3.70-11.00 [facility] Comment on above: Order Comment: Speci men Type: BLOOD SPECIMENOrdering Facility: [facility] Address: [address] [place] [address] Performed By: #### 5 7021-8 ####[facility] LABORATORYCLIA [id number] [address] Comprehensive metabolic 2000 panelon 09-29-2024 Albumin [Mass/Vol] 4.0 g/dL Normal 3.9-4.9 [facility] Comment on above: Order Comment: Speci men Type: BLOOD SPECIMENOrdering Facility: [facility] Address: [address] [place] [address] Performed By: #### 2 4323-8 ####[facility] LABORATORYCLIA [id number] [address] [place] [facility] ALP [Catalytic activity/Vol] 127 U/L High 34-123 [facility] Comment on above: Order Comment: Speci men Type: BLOOD SPECIMENOrdering Facility: [facility] Address: [address] [place] [address] Performed By: #### 2 4323-8 ####[facility] LABORATORYCLIA [id number] [place] [address] [place] ALT With P-5'-P [Catalytic activity/Vol] 31 U/L Normal 7-38 [facility] Comment on above: Order Comment: Speci men Type: BLOOD SPECIMENOrdering Facility: [facility] Address: [address] [place] [address] Performed By: #### 2 4323-8 ####[facility] LABORATORYCLIA [id number] [place] [address] [place] Anion gap [Moles/Vol] 11 mmol/L Normal 8-15 [facility] Comment on above: Order Comment: Speci men Type: BLOOD SPECIMENOrdering Facility: [facility] Address: [address] [place] [address] Performed By: #### 2 4323-8 ####[facility] LABORATORYCLIA [id number] [place] [address] [place] AST With P-5'-P [Catalytic activity/Vol] 22 U/L Normal 13-35 [facility] Comment on above: Order Comment: Speci men Type: BLOOD SPECIMENOrdering Facility: [facility] Address: [address] [place] [address] Performed By: #### 2 4323-8 ####[facility] LABORATORYCLIA [id number] [place] [address] [place] Bilirubin [Mass/Vol] 0.6 mg/dL Normal 0.2-1.3 [facility] Comment on above: Order Comment: Speci men Type: BLOOD SPECIMENOrdering Facility: [facility] Address: [address] [place] [address] Performed By: #### 2 4323-8 ####[facility] LABORATORYCLIA [id number] [address] [place] Calcium [Mass/Vol] 9.1 mg/dL Normal 8.5-10.2 [facility] Comment on above: Order Comment: Speci men Type: BLOOD SPECIMENOrdering Facility: [facility] Address: [address] [place] [address] Performed By: #### 2 4323-8 ####[facility] LABORATORYCLIA [id number] [address] [place] Chloride [Moles/Vol] 101 mmol/L Normal 98-107 [facility] Comment on above: Order Comment: Speci men Type: BLOOD SPECIMENOrdering Facility: [facility] Address: [address] [place] [address] Performed By: #### 2 4323-8 ####[facility] LABORATORYCLIA [id number] [address] OF [facility] CO2 [Moles/Vol] 23 mmol/L Normal 22-30 [facility] Comment on above: Order Comment: Speci men Type: BLOOD SPECIMENOrdering Facility: [facility] Address: [address] [place] [address] Performed By: #### 2 4323-8 ####[facility] LABORATORYCLIA [id number] [address] OF [facility] Creatinine [Mass/Vol] 0.93 mg/dL Normal 0.58-0.96 [facility] Comment on above: Order Comment: Speci men Type: BLOOD SPECIMENOrdering Facility: [facility] Address: [address] [place] [address] Performed By: #### 2 4323-8 ####[facility] LABORATORYCLIA [id number] [address] Creatinine and Glomerular filtration rate.predicted panel (S/P/Bld) 67 mL/min/1.73m??? Normal >=60 [facility] Comment on above: Order Comment: Speci men Type: BLOOD SPECIMENOrdering Facility: [facility] Address: [address] [place] [address] Result Comment: Conchita mated Glomerular Filtration Rate [...] reflect actual GFR. Performed By: #### 2 4323-8 ####[facility] LABORATORYCLIA [id number] [place] [address] [place] Glucose [Mass/Vol] 94 mg/dL Normal 74-99 [facility] Comment on above: Order Comment: Prince pteer Type: BLOOD SPECIMENOrdering Facility: [facility] Address: [address] [place] [address] Result Comment: The [employer] (ADA) provides guidance for cutoff [...] Standards of Medical Care in Diabetes 2016, [employer]. Diabetes Care. 2016.39(Suppl 1). Performed By: #### 2 4323-8 ####[facility] LABORATORYCLIA [id number] [place] [address] [place] Potassium [Moles/Vol] 4.3 mmol/L Normal 3.7-5.1 [facility] Comment on above: Order Comment: Prince peter Type: BLOOD SPECIMENOrdering Facility: [facility] Address: [address] [place] [address] Performed By: #### 2 4323-8 ####[facility] LABORATORYCLIA [id number] [place] [id number] [place] Protein [Mass/Vol] 6.1 g/dL Low 6.3-8.0 [facility] Comment on above: Order Comment: Prince peter Type: BLOOD SPECIMENOrdering Facility: [facility] Address: [address] [place] [address] Performed By: #### 2 4323-8 ####[facility] LABORATORYCLIA [id number] [place] [address] [place] Sodium [Moles/Vol] 135 mmol/L Low 136-144 [facility] Comment on above: Order Comment: Speci men Type: BLOOD SPECIMENOrdering Facility: [facility] Address: [address] [place] [address] Performed By: #### 2 4323-8 ####[facility] LABORATORYCLIA [id number] [place] [id number] [place] Urea nitrogen [Mass/Vol] 22 mg/dL High 7-21 [facility] Comment on above: Order Comment: Speci men Type: BLOOD SPECIMENOrdering Facility: [facility] Address: [address] [place] [address] Performed By: #### 2 4323-8 ####[facility] LABORATORYCLIA [id number] [place] [address] [place] Basic metabolic 2000 panelon 09-28-2024 Anion gap [Moles/Vol] 14 mmol/L Normal 8-15 [facility] Comment on above: Order Comment: Speci men Type: BLOOD SPECIMENOrdering Facility: [facility] Address: [address] [place] [address] Performed By: #### 1 9123-9, 49523-3, 2777-1 ####[facility] LABORATORYCLIA [id number] [place] [address] [place] Calcium [Mass/Vol] 9.9 mg/dL Normal 8.5-10.2 [facility] Comment on above: Order Comment: Speci men Type: BLOOD SPECIMENOrdering Facility: [facility] Address: [address] [place] [address] Performed By: #### 1 9123-9, 82809-0, 2777-1 ####[facility] LABORATORYCLIA [id number] [place] [id number] [place] Chloride [Moles/Vol] 96 mmol/L Low 98-107 [facility] Comment on above: Order Comment: Speci men Type: BLOOD SPECIMENOrdering Facility: [facility] Address: [address] [place], [place] [id number] Performed By: #### 1 9123-9, 47938-0, 2776-08 ####[facility]ITALCLIA [id number] [address] CO2 [Moles/Vol] 23 mmol/L Normal 22-30 [facility] Comment on above: Order Comment: Speci men Type: BLOOD SPECIMENOrdering Facility: [facility] Address: [address] [place] [address] Performed By: #### 1 9123-9, 87735-1, 2776-08 ####[facility] [id number] [address] Creatinine [Mass/Vol] 0.90 mg/dL Normal 0.58-0.96 [facility] Comment on above: Order Comment: Speci men Type: BLOOD SPECIMENOrdering Facility: [facility] Address: [address] [place] [address] Performed By: #### 1 9123-9, 15351-6, 2776-08 ####[facility] [id number] [address] Creatinine and Glomerular filtration rate.predicted panel (S/P/Bld) 69 mL/min/1.73m??? Normal >=60 [facility] Comment on above: Order Comment: Speci men Type: BLOOD SPECIMENOrdering Facility: [facility] Address: [address] [place] [address] Result Comment: Conchita mated Glomerular Filtration Rate [...] actual GFR. Performed By: #### 1 9123-9, 02192-3, 2776- ####[facility] [id number] [place] [address] [place] Glucose [Mass/Vol] 121 mg/dL High 74-99 [facility] Comment on above: Order Comment: Speclizett men Type: BLOOD SPECIMENOrdering Facility: [facility] Address: [address] [place] [address] Result Comment: The [employer] Diabetes Association (ADA) provides guidance for cutoff [...] Standards of Medical Care in Diabetes 2016, [employer]. Diabetes Care. 2016.39(Suppl 1). Performed By: #### 1 9123-9, 71679-2, 2776-08 ####[facility] LABORATORYCLIA [id number] [place] [address] [place] Potassium [Moles/Vol] 4.0 mmol/L Normal 3.7-5.1 [facility] Comment on above: Order Comment: Prince omer Type: BLOOD SPECIMENOrdering Facility: [facility] Address: [address] [place] [address] Performed By: #### 1 9123-9, 00099-7, 2776-08 ####[facility] LABORATORYCLIA [id number] [place] [address] [place] Sodium [Moles/Vol] 133 mmol/L Low 136-144 [facility] Comment on above: Order Comment: Prince omer Type: BLOOD SPECIMENOrdering Facility: [facility] Address: [address] [place] [address] Performed By: #### 1 9123-9, 22073-7, 2776-08 ####[facility] LABORATORYCLIA [id number] [place] [address] [place] Urea nitrogen [Mass/Vol] 17 mg/dL Normal 7-21 [facility] Comment on above: Order Comment: Speci men Type: BLOOD SPECIMENOrdering Facility: [facility] Address: [address] [place] [address] Performed By: #### 1 9123-9, 25398-0, 2777-1 ####[facility] LABORATORYCLIA [id number] [address] [place] CASE MANAGEMon 09-28-2024 CASE MANAGEM Normal [facility] CBC W Auto Differential pane l (Bld)on 09-28-2024 Basophils (Bld) [#/Vol] 0.05 10*3/uL Normal <0.11 [facility] Comment on above: Order Comment: Speci men Type: BLOOD SPECIMENOrdering Facility: [facility] Address: [address] [place] [address] Performed By: #### 5 7021-8 ####[facility] LABORATORYCLIA [id number] [address] [place] Basophils/100 WBC (Bld) 0.8 % Normal [facility] Comment on above: Order Comment: Speci men Type: BLOOD SPECIMENOrdering Facility: [facility] Address: [address] [place] [address] Performed By: #### 5 7021-8 ####[facility] LABORATORYCLIA [id number] [address] [place] Differential cell count method Nom (Bld) Auto Normal [facility] Comment on above: Order Comment: Speci men Type: BLOOD SPECIMENOrdering Facility: [facility] Address: [address] [place] [address] Performed By: #### 5 7021-8 ####[facility] LABORATORYCLIA [id number] [place] [address] [place] Eosinophils (Bld) [#/Vol] 0.22 10*3/uL Normal <0.46 [facility] Comment on above: Order Comment: Speci men Type: BLOOD SPECIMENOrdering Facility: [facility] Address: [address] [place] [address] Performed By: #### 5 7021-8 ####[facility] LABORATORYCLIA [id number] [address] [place] Eosinophils/100 WBC (Bld) 3.4 % Normal [facility] Comment on above: Order Comment: Speci men Type: BLOOD SPECIMENOrdering Facility: [facility] Address: [address] [place] [address] Performed By: #### 5 7021-8 ####[facility] LABORATORYCLIA [id number] [address] [place] Erythrocyte distribution width (RBC) [Ratio] 12.1 % Normal 11.5-15.0 [facility] Comment on above: Order Comment: Speci men Type: BLOOD SPECIMENOrdering Facility: [facility] Address: [address] [place] [address] Performed By: #### 5 7021-8 ####[facility] LABORATORYCLIA [id number] [address] [place] Hematocrit (Bld) [Volume fraction] 46.4 % High 36.0-46.0 [facility] Comment on above: Order Comment: Speci men Type: BLOOD SPECIMENOrdering Facility: [facility] Address: [address] [place] [address] Performed By: #### 5 7021-8 ####[facility] LABORATORYCLIA [id number] [address] [place] Hemoglobin (Bld) [Mass/Vol] 16.1 g/dL High 11.5-15.5 [facility] Comment on above: Order Comment: Speci men Type: BLOOD SPECIMENOrdering Facility: [facility] Address: [address] [place] [address] Performed By: #### 5 7021-8 ####[facility] LABORATORYCLIA [id number] [address] [place] Immature granulocytes (Bld) [#/Vol] 0.04 10*3/uL Normal <0.10 [facility] Comment on above: Order Comment: Speci men Type: BLOOD SPECIMENOrdering Facility: [facility] Address: [address] [place] [address] Performed By: #### 5 7021-8 ####[facility] LABORATORYCLIA [id number] [address] [place] Immature granulocytes/100 WBC (Bld) 0.6 % Normal [facility] Comment on above: Order Comment: Speci men Type: BLOOD SPECIMENOrdering Facility: [facility] Address: [address] [place] [address] Performed By: #### 5 7021-8 ####[facility] LABORATORYCLIA [id number] [place] [address] [place] Lymphocytes (Bld) [#/Vol] 1.77 10*3/uL Normal 1.00-4.00 [facility] Comment on above: Order Comment: Speci men Type: BLOOD SPECIMENOrdering Facility: [facility] Address: [address] [place] [address] Performed By: #### 5 7021-8 ####[facility] LABORATORYCLIA [id number] [address] STATES [facility] Lymphocytes/100 WBC (Bld) 27.1 % Normal [facility] Comment on above: Order Comment: Speci men Type: BLOOD SPECIMENOrdering Facility: [facility] Address: [address] [place] [address] Performed By: #### 5 7021-8 ####[facility] LABORATORYCLIA [id number] [place] [address] [place] MCH (RBC) [Entitic mass] 31.6 pg Normal 26.0-34.0 [facility] Comment on above: Order Comment: Speci men Type: BLOOD SPECIMENOrdering Facility: [facility] Address: [address] [place] [address] Performed By: #### 5 7021-8 ####[facility] LABORATORYCLIA [id number] [address] [place] MCHC (RBC) [Mass/Vol] 34.7 g/dL Normal 30.5-36.0 [facility] Comment on above: Order Comment: Speci men Type: BLOOD SPECIMENOrdering Facility: [facility] Address: [address] [place] [address] Performed By: #### 5 7021-8 ####[facility] LABORATORYCLIA [id number] [address] [place] MCV (RBC) [Entitic vol] 91.0 fL Normal 80.0-100.0 [facility] Comment on above: Order Comment: Speci men Type: BLOOD SPECIMENOrdering Facility: [facility] Address: [address] [place] [address] Performed By: #### 5 7021-8 ####[facility] LABORATORYCLIA [id number] [address] [place] Monocytes (Bld) [#/Vol] 0.51 10*3/uL Normal <0.87 [facility] Comment on above: Order Comment: Speci men Type: BLOOD SPECIMENOrdering Facility: [facility] Address: [address] [place] [address] Performed By: #### 5 7021-8 ####[facility] LABORATORYCLIA [id number] [address] Monocytes/100 WBC (Bld) 7.8 % Normal [facility] Comment on above: Order Comment: Speci men Type: BLOOD SPECIMENOrdering Facility: [facility] Address: [address] [place] [address] Performed By: #### 5 7021-8 ####[facility] LABORATORYCLIA [id number] [place] [address] [place] Neutrophils (Bld) [#/Vol] 3.94 10*3/uL Normal 1.45-7.50 [facility] Comment on above: Order Comment: Speci men Type: BLOOD SPECIMENOrdering Facility: [facility] Address: [address] [place] [address] Performed By: #### 5 7021-8 ####[facility]ORATORYCLIA [id number] [address] Neutrophils/100 WBC (Bld) 60.3 % Normal [facility] Comment on above: Order Comment: Speci men Type: BLOOD SPECIMENOrdering Facility: [facility] Address: [address] [place] [address] Performed By: #### 5 7021-8 ####[facility]ORATORYCLIA [id number] [address] [place] Nucleated RBC (Bld) [#/Vol] 10*3/uL Normal <0.01 [facility] Comment on above: Order Comment: Speci men Type: BLOOD SPECIMENOrdering Facility: [facility] Address: [address] [place] [address] Performed By: #### 5 7021-8 ####[facility] LABORATORYCLIA [id number] [address] Nucleated RBC/100 WBC (Bld) [Ratio] 0.0 /100 WBC Normal [facility] Comment on above: Order Comment: Speci men Type: BLOOD SPECIMENOrdering Facility: [facility] Address: [address] [place] [address] Performed By: #### 5 7021-8 ####[facility] LABORATORYCLIA [id number] [address] [place] Platelet mean volume (Bld) [Entitic vol] 9.5 fL Normal 9.0-12.7 [facility] Comment on above: Order Comment: Speci men Type: BLOOD SPECIMENOrdering Facility: [facility] Address: [address] [place] [address] Performed By: #### 5 7021-8 ####[facility] LABORATORYCLIA [id number] [address] [place] Platelets (Bld) [#/Vol] 298 10*3/uL Normal 150-400 [facility] Comment on above: Order Comment: Speci men Type: BLOOD SPECIMENOrdering Facility: [facility] Address: [address] [place], [place] [address] Performed By: #### 5 7021-8 ####[facility] LABORATORYCLIA [id number] [address] OF [facility] RBC (Bld) [#/Vol] 5.10 10*6/uL Normal 3.90-5.20 [facility] Comment on above: Order Comment: Speci men Type: BLOOD SPECIMENOrdering Facility: [facility] Address: [address] [place] [address] Performed By: #### 5 7021-8 ####[facility] LABORATORYCLIA [id number] [address] OF [facility] WBC (Bld) [#/Vol] 6.53 10*3/uL Normal 3.70-11.00 [facility] Comment on above: Order Comment: Speci men Type: BLOOD SPECIMENOrdering Facility: [facility] Address: [address] [place] [address] Performed By: #### 5 7021-8 ####[facility] LABORATORYCLIA [id number] [address] Comprehensive metabolic 2000 panelon 09-28-2024 Albumin [Mass/Vol] 4.3 g/dL Normal 3.9-4.9 [facility] Comment on above: Order Comment: Speci men Type: BLOOD SPECIMENOrdering Facility: [facility] Address: [address] [place] [address] Performed By: #### 2 4323-8, 09415-2 ####[facility] LABORATORYCLIA [id number] [address] ALP [Catalytic activity/Vol] 138 U/L High 34-123 [facility] Comment on above: Order Comment: Speci men Type: BLOOD SPECIMENOrdering Facility: [facility] Address: [address] [place] [address] Performed By: #### 2 4323-8, 16300-3 ####[facility] LABORATORYCLIA [id number] [place] [id number] [place] ALT With P-5'-P [Catalytic activity/Vol] 36 U/L Normal 7-38 [facility] Comment on above: Order Comment: Speci men Type: BLOOD SPECIMENOrdering Facility: [facility] Address: [address] [place] [address] Performed By: #### 2 432-8, ####[facility] LABORATORYCLIA [id number] [place] [id number] [place] Anion gap [Moles/Vol] 11 mmol/L Normal 8-15 [facility] Comment on above: Order Comment: Speci men Type: BLOOD SPECIMENOrdering Facility: [facility] Address: [address] [place] [address] Performed By: #### 2 4323-03, ####[facility] LABORATORYCLIA [id number] [place] [address] [place] AST With P-5'-P [Catalytic activity/Vol] 35 U/L Normal 13-35 [facility] Comment on above: Order Comment: Speci men Type: BLOOD SPECIMENOrdering Facility: [facility] Address: [address] [place] [address] Performed By: #### 2 4323-03, ####[facility] LABORATORYCLIA [id number] [place] [address] [place] Bilirubin [Mass/Vol] 0.7 mg/dL Normal 0.2-1.3 [facility] Comment on above: Order Comment: Speci men Type: BLOOD SPECIMENOrdering Facility: [facility] Address: [address] [place] [address] Performed By: #### 2 4323-8, ####[facility] LABORATORYCLIA [id number] [place] [address] [place] Calcium [Mass/Vol] 9.3 mg/dL Normal 8.5-10.2 [facility] Comment on above: Order Comment: Speci men Type: BLOOD SPECIMENOrdering Facility: [facility] Address: [address] [place] [address] Performed By: #### 2 4323-8, ####[facility] LABORATORYCLIA [id number] [place] [address] [place] Chloride [Moles/Vol] 97 mmol/L Low 98-107 [facility] Comment on above: Order Comment: Speci men Type: BLOOD SPECIMENOrdering Facility: [facility] Address: [address] [place] [address] Performed By: #### 2 4323-8, ####[facility] LABORATORYCLIA [id number] [place] [id number] [place] CO2 [Moles/Vol] 23 mmol/L Normal 22-30 [facility] Comment on above: Order Comment: Speci men Type: BLOOD SPECIMENOrdering Facility: [facility] Address: [address] [place] [address] Performed By: #### 2 4323-8, ####[facility] LABORATORYCLIA [id number] [address] OF [facility] Creatinine [Mass/Vol] 0.84 mg/dL Normal 0.58-0.96 [facility] Comment on above: Order Comment: Speci men Type: BLOOD SPECIMENOrdering Facility: [facility] Address: [address] [place] [address] Performed By: #### 2 4323-8, 55724-1 ####[facility] LABORATORYCLIA [id number] [address] Creatinine and Glomerular filtration rate.predicted panel (S/P/Bld) 75 mL/min/1.73m??? Normal >=60 [facility] Comment on above: Order Comment: Speci men Type: BLOOD SPECIMENOrdering Facility: [facility] Address: [address] [place] [address] Result Comment: Conchita mated Glomerular Filtration Rate [...] reflect actual GFR. Performed By: #### 2 4323-8, ####[facility] LABORATORYCLIA [id number] [place] [address] [place] Glucose [Mass/Vol] 101 mg/dL High 74-99 [facility] Comment on above: Order Comment: Prince omer Type: BLOOD SPECIMENOrdering Facility: [facility] Address: [address] [place] [address] Result Comment: The [employer] Diabetes [employer] (ADA) provides guidance for cutoff [...] Standards of Medical Care in Diabetes 2016, [employer]. Diabetes Care. 2016.39(Suppl 1). Performed By: #### 2 4323-8, ####[facility] LABORATORYCLIA [id number] [place] [address] [place] Potassium [Moles/Vol] 4.0 mmol/L Normal 3.7-5.1 [facility] Comment on above: Order Comment: Prince omer Type: BLOOD SPECIMENOrdering Facility: [facility] Address: [address] [place] [address] Performed By: #### 2 4323-8, ####[facility] LABORATORYCLIA [id number] [place] [address] [place] Protein [Mass/Vol] 6.7 g/dL Normal 6.3-8.0 [facility] Comment on above: Order Comment: Prince omer Type: BLOOD SPECIMENOrdering Facility: [facility] Address: [address] [place] [address] Performed By: #### 2 4323-8, 65503-0 ####[facility] LABORATORYCLIA [id number] [place] [address] [place] Sodium [Moles/Vol] 131 mmol/L Low 136-144 [facility] Comment on above: Order Comment: Speci men Type: BLOOD SPECIMENOrdering Facility: [facility] Address: [address] [place] [address] Performed By: #### 2 4323-8, ####[facility] LABORATORYCLIA [id number] [place] [address] [place] Urea nitrogen [Mass/Vol] 18 mg/dL Normal 7-21 [facility] Comment on above: Order Comment: Speci men Type: BLOOD SPECIMENOrdering Facility: [facility] Address: [address] [place] [address] Performed By: #### 2 4328, ####[facility] LABORATORYCLIA [id number] [place] [address] [place] ECG COMPLETEon 09-28-2024 ECG COMPLETE Normal [facility] ECG COMPLETE Normal [facility] ECHO LIMITEDon 09-28-2024 ECHO LIMITED Normal [facility] HIGH SENSITIVITY TROPONIN To n 09-28-2024 Troponin T.cardiac High sensitivity method [Mass/Vol] 7 ng/L Normal <12 [facility] Comment on above: Order Comment: Speci men Type: BLOOD SPECIMENOrdering Facility: [facility] Address: [address] [place] [address] Performed By: #### H STNT ####[facility] LABORATORYCLIA [id number] [place] [address] [place] Magnesium SerPl-mCncon 09-28 Magnesium [Mass/Vol] 2.1 mg/dL Normal 1.7-2.3 [facility] Comment on above: Order Comment: Speci men Type: BLOOD SPECIMENOrdering Facility: [facility] Address: [address] [place] [address] Performed By: #### 1 9123-9, 91147-7, 277-1 ####[facility] LABORATORYCLIA [id number] [place] [address] [place] Magnesium [Mass/Vol] 2.1 mg/dL Normal 1.7-2.3 [facility] Comment on above: Order Comment: Speci men Type: BLOOD SPECIMENOrdering Facility: [facility] Address: [address] [place], [place] [address] Performed By: #### 2 4323-8, ####[facility] LABORATORYCLIA [id number] [place] [address] [place] NURSING PROGon 09-28-2024 NURSING PROG Normal [facility] PT EDon 09-28-2024 PT ED Normal [facility] Phosphate SerPl-mCncon 09-28 Phosphate [Mass/Vol] 3.0 mg/dL Normal 2.7-4.8 [facility] Comment on above: Order Comment: Speci men Type: BLOOD SPECIMENOrdering Facility: [facility] Address: [address] [place], [place] [address] Performed By: #### 1 9123-9, 35427-0, 2776-08 ####[facility] LABORATORYCLIA [id number] [place] [id number] [place] Basic metabolic 2000 panelon 09-27-2024 Anion gap [Moles/Vol] 11 mmol/L Normal 8-15 [facility] Comment on above: Order Comment: Speci men Type: BLOOD SPECIMENOrdering Facility: [facility] Address: [address] [place], [place] [address] Performed By: #### 2 4321-2, 65174-2, 2776-08 ####[facility] LABORATORYCLIA [id number] [address] [place] Calcium [Mass/Vol] 10.0 mg/dL Normal 8.5-10.2 [facility] Comment on above: Order Comment: Speci men Type: BLOOD SPECIMENOrdering Facility: [facility] Address: [address] [place] [id number] Performed By: #### 2 4321-2, , 2776-08 ####[facility] LABORATORYCLIA [id number] [place] [address] [place] Chloride [Moles/Vol] 100 mmol/L Normal 98-107 [facility] Comment on above: Order Comment: Speci men Type: BLOOD SPECIMENOrdering Facility: [facility] Address: [address] [place] [address] Performed By: #### 2 4321-2, , 2776-08 ####[facility] LABORATORYCLIA [id number] [place] [id number] [place] CO2 [Moles/Vol] 23 mmol/L Normal 22-30 [facility] Comment on above: Order Comment: Speci men Type: BLOOD SPECIMENOrdering Facility: [facility] Address: [address] [place] [address] Performed By: #### 2 4321-2, , 2776-08 ####[facility] LABORATORYCLIA [id number] [place] [id number] [place] Creatinine [Mass/Vol] 0.95 mg/dL Normal 0.58-0.96 [facility] Comment on above: Order Comment: Speci men Type: BLOOD SPECIMENOrdering Facility: [facility] Address: [address] [place] [address] Performed By: #### 2 4321-2, , 2776-08 ####[facility] LABORATORYCLIA [id number] [place] [id number] [facility] Creatinine and Glomerular filtration rate.predicted panel (S/P/Bld) 65 mL/min/1.73m??? Normal >=60 [facility] Comment on above: Order Comment: Speci men Type: BLOOD SPECIMENOrdering Facility: [facility] Address: [address] [place] [address] Result Comment: Conchita mated Glomerular Filtration Rate [...] reflect actual GFR. Performed By: #### 2 4321-2, , 2776-08 ####[facility] LABORATORYCLIA [id number] [place] [address] [place] Glucose [Mass/Vol] 146 mg/dL High 74-99 [facility] Comment on above: Order Comment: Prince omer Type: BLOOD SPECIMENOrdering Facility: [facility] Address: [address] [place] [address] Result Comment: The [employer] (ADA) provides guidance for cutoff [...] Standards of Medical Care in Diabetes 2016, [employer]. Diabetes Care. 2016.39(Suppl 1). Performed By: #### 2 4321-2, , 2776-08 ####[facility] LABORATORYCLIA [id number] [place] [id number] [place] Potassium [Moles/Vol] 3.8 mmol/L Normal 3.7-5.1 [facility] Comment on above: Order Comment: Prince omer Type: BLOOD SPECIMENOrdering Facility: [facility] Address: [address] [place] [id number] Performed By: #### 2 4321-2, , 2776-08 ####[facility] LABORATORYCLIA [id number] [place] [address] [place] Sodium [Moles/Vol] 134 mmol/L Low 136-144 [facility] Comment on above: Order Comment: Speci men Type: BLOOD SPECIMENOrdering Facility: [facility] Address: [address] [place] [address] Performed By: #### 2 4321-2, , 2776-08 ####[facility] LABORATORYCLIA [id number] [address] STATES OF [facility] Urea nitrogen [Mass/Vol] 18 mg/dL Normal 7-21 [facility] Comment on above: Order Comment: Speci men Type: BLOOD SPECIMENOrdering Facility: [facility] Address: [address] [place] [address] Performed By: #### 2 4321-2, , 2776-08 ####[facility] LABORATORYCLIA [id number] [place] CBC panel Auto (Bld)on 09-27 Erythrocyte distribution width (RBC) [Ratio] 12.5 % Normal 11.5-15.0 [facility] Comment on above: Order Comment: Speci men Type: BLOOD SPECIMENOrdering Facility: [facility] Address: [address] [place] [address] Performed By: #### 5 8410-2 ####[facility] LABORATORYCLIA [id number] [address] [place] Hematocrit (Bld) [Volume fraction] 48.6 % High 36.0-46.0 [facility] Comment on above: Order Comment: Speci men Type: BLOOD SPECIMENOrdering Facility: [facility] Address: [address] [place] [address] Performed By: #### 5 8410-2 ####[facility] LABORATORYCLIA [id number] [address] [place] Hemoglobin (Bld) [Mass/Vol] 16.5 g/dL High 11.5-15.5 [facility] Comment on above: Order Comment: Speci men Type: BLOOD SPECIMENOrdering Facility: [facility] Address: [address] [place] [address] Performed By: #### 5 8410-2 ####[facility] LABORATORYCLIA [id number] [address] MCH (RBC) [Entitic mass] 30.8 pg Normal 26.0-34.0 [facility] Comment on above: Order Comment: Speci men Type: BLOOD SPECIMENOrdering Facility: [facility] Address: [address] [place] [address] Performed By: #### 5 8410-2 ####[facility] LABORATORYCLIA [id number] [address] [place] MCHC (RBC) [Mass/Vol] 34.0 g/dL Normal 30.5-36.0 [facility] Comment on above: Order Comment: Speci men Type: BLOOD SPECIMENOrdering Facility: [facility] Address: [address] [place] [address] Performed By: #### 5 8410-2 ####[facility] LABORATORYCLIA [id number] [address] MCV (RBC) [Entitic vol] 90.7 fL Normal 80.0-100.0 [facility] Comment on above: Order Comment: Speci men Type: BLOOD SPECIMENOrdering Facility: [facility] Address: [address] [place] [address] Performed By: #### 5 8410-2 ####[facility] LABORATORYCLIA [id number] [address] Nucleated RBC (Bld) [#/Vol] 10*3/uL Normal <0.01 [facility] Comment on above: Order Comment: Speci men Type: BLOOD SPECIMENOrdering Facility: [facility] Address: [address] [place] [address] Performed By: #### 5 8410-2 ####[facility] LABORATORYCLIA [id number] [address] [place] Platelet mean volume (Bld) [Entitic vol] 9.7 fL Normal 9.0-12.7 [facility] Comment on above: Order Comment: Speci men Type: BLOOD SPECIMENOrdering Facility: [facility] Address: [address] [place] [address] Performed By: #### 5 8410-2 ####[facility] LABORATORYCLIA [id number] [address] OF [facility] Platelets (Bld) [#/Vol] 305 10*3/uL Normal 150-400 [facility] Comment on above: Order Comment: Speci men Type: BLOOD SPECIMENOrdering Facility: [facility] Address: [address] [place] [address] Performed By: #### 5 8410-2 ####[facility] LABORATORYCLIA [id number] [place] [address] [place] RBC (Bld) [#/Vol] 5.36 10*6/uL High 3.90-5.20 [facility] Comment on above: Order Comment: Speci men Type: BLOOD SPECIMENOrdering Facility: [facility] Address: [address] [place] [address] Performed By: #### 5 8410-2 ####[facility] LABORATORYCLIA [id number] [address] OF [facility] WBC (Bld) [#/Vol] 6.03 10*3/uL Normal 3.70-11.00 [facility] Comment on above: Order Comment: Speci men Type: BLOOD SPECIMENOrdering Facility: [facility] Address: [address] [place] [address] Performed By: #### 5 8410-2 ####[facility] LABORATORYCLIA [id number] [address] [place] CONSULTon 09-27-2024 CONSULT Normal [facility] ECG COMPLETEon 09-27-2024 ECG COMPLETE Normal [facility] ECG COMPLETE Normal [facility] HIGH SENSITIVITY TROPONIN To n 09-27-2024 Troponin T.cardiac High sensitivity method [Mass/Vol] 8 ng/L Normal <12 [facility] Comment on above: Order Comment: Speci men Type: BLOOD SPECIMENOrdering Facility: [facility] Address: [address] [place] [address] Performed By: #### H STNT ####[facility] LABORATORYCLIA [id number] [place] [address] [place] [facility] Magnesium SerPl-mCncon 09-27 Magnesium [Mass/Vol] 2.0 mg/dL Normal 1.7-2.3 [facility] Comment on above: Order Comment: Speci men Type: BLOOD SPECIMENOrdering Facility: [facility] Address: [address] [place] [address] Performed By: #### 2 4321-2, , 27702-16 ####[facility] LABORATORYCLIA [id number] [address] [place] [facility] Phosphate SerPl-mCncon 09-27 Phosphate [Mass/Vol] 3.3 mg/dL Normal 2.7-4.8 [facility] Comment on above: Order Comment: Speci men Type: BLOOD SPECIMENOrdering Facility: [facility] Address: [address] [place] [address] Performed By: #### 2 4321-2, , 27702-16 ####[facility] LABORATORYCLIA [id number] [place] [address] [place] XR CHEST 1V FRONTALon 2024 XR CHEST 1V FRONTAL Normal [facility] ECG COMPLETEon 09-26-2024 ECG COMPLETE Normal [facility] HIGH SENSITIVITY TROPONIN To n 09-26-2024 Troponin T.cardiac High sensitivity method [Mass/Vol] 7 ng/L Normal <12 [facility] Comment on above: Order Comment: Speci men Type: BLOOD SPECIMENOrdering Facility: [facility] Address: [address] [place] [address] Performed By: #### H STNT ####[facility] LABORATORYCLIA [id number] [place] [address] [place] Magnesium SerPl-mCncon 09-26 Magnesium [Mass/Vol] 2.1 mg/dL Normal 1.7-2.3 [facility] Comment on above: Order Comment: Speci men Type: BLOOD SPECIMENOrdering Facility: [facility] Address: [address] [place] [address] Performed By: #### 2 4362-6, ####[facility] LABORATORYCLIA [id number] [place] [address] [place] Renal function 2000 panelon 09-26-2024 Albumin [Mass/Vol] 4.0 g/dL Normal 3.9-4.9 [facility] Comment on above: Order Comment: Speci men Type: BLOOD SPECIMENOrdering Facility: [facility] Address: [address] [place] [address] Performed By: #### 2 4362-6, ####[facility] LABORATORYCLIA [id number] [place] [address] [place] Anion gap [Moles/Vol] 11 mmol/L Normal 8-15 [facility] Comment on above: Order Comment: Speci men Type: BLOOD SPECIMENOrdering Facility: [facility] Address: [address] [place] [address] Performed By: #### 2 4362-6, ####[facility] LABORATORYCLIA [id number] [place] [address] [place] Calcium [Mass/Vol] 9.3 mg/dL Normal 8.5-10.2 [facility] Comment on above: Order Comment: Speci men Type: BLOOD SPECIMENOrdering Facility: [facility] Address: [address] [place] [address] Performed By: #### 2 4362-6, ####[facility] LABORATORYCLIA [id number] [place] [address] [place] Chloride [Moles/Vol] 104 mmol/L Normal 98-107 [facility] Comment on above: Order Comment: Speci men Type: BLOOD SPECIMENOrdering Facility: [facility] Address: [address] [place] [address] Performed By: #### 2 4362-6, ####[facility] LABORATORYCLIA [id number] [place] [id number] [place] CO2 [Moles/Vol] 22 mmol/L Normal 22-30 [facility] Comment on above: Order Comment: Speci men Type: BLOOD SPECIMENOrdering Facility: [facility] Address: [address] [place] [address] Performed By: #### 2 4362-6, ####[facility] LABORATORYCLIA [id number] [address] [place] Creatinine [Mass/Vol] 0.85 mg/dL Normal 0.58-0.96 [facility] Comment on above: Order Comment: Speci men Type: BLOOD SPECIMENOrdering Facility: [facility] Address: [address] [place] [address] Performed By: #### 2 436-6, ####[facility]ITALCL[facility] [id number] [address] Creatinine and Glomerular filtration rate.predicted panel (S/P/Bld) 74 mL/min/1.73m??? Normal >=60 [facility] Comment on above: Order Comment: Speci men Type: BLOOD SPECIMENOrdering Facility: [facility] Address: [address] [place] [address] Result Comment: Conchita mated Glomerular Filtration Rate [...] reflect actual GFR. Performed By: #### 2 4362-6, ####[facility] LABORATORYCLIA [id number] [place] [id number] [place] Glucose [Mass/Vol] 92 mg/dL Normal 74-99 [facility] Comment on above: Order Comment: Speci men Type: BLOOD SPECIMENOrdering Facility: [facility] Address: [address] [place] [address] Result Comment: The [employer] (ADA) provides guidance for cutoff [...] Standards of Medical Care in Diabetes 2016, [employer]. Diabetes Care. 2016.39(Suppl 1). Performed By: #### 2 4362-6, ####[facility] LABORATORYCLIA [id number] [place] [address] [place] Phosphate [Mass/Vol] 3.7 mg/dL Normal 2.7-4.8 [facility] Comment on above: Order Comment: [place] Type: BLOOD SPECIMENOrdering Facility: [facility] Address: [address] [place] [address] Performed By: #### 2 436-, ####[facility] LABORATORYCLIA [id number] [place] [address] [place] Potassium [Moles/Vol] 4.1 mmol/L Normal 3.7-5.1 [facility] Comment on above: Order Comment: Speci men Type: BLOOD SPECIMENOrdering Facility: [facility] Address: [address] [place] [address] Performed By: #### 2 436-, ####[facility] LABORATORYCLIA [id number] [place] [address] [place] Sodium [Moles/Vol] 137 mmol/L Normal 136-144 [facility] Comment on above: Order Comment: Speci men Type: BLOOD SPECIMENOrdering Facility: [facility] Address: [address] [place] [address] Performed By: #### 2 4362-6, 16267-0 ####[facility] LABORATORYCLIA [id number] [place] [address] [place] Urea nitrogen [Mass/Vol] 12 mg/dL Normal 7-21 [facility] Comment on above: Order Comment: Speci men Type: BLOOD SPECIMENOrdering Facility: [facility] Address: [address] [place] [address] Performed By: #### 2 4362-6, ####[facility] LABORATORYCLIA [id number] [place] [address] [place] XR CHEST 2V FRONTAL/LATon XR CHEST 2V FRONTAL/LAT Normal [facility] CASE MGT INIT ASSESon 2024 CASE MGT INIT ASSES Normal [facility] CBC panel Auto (Bld)on 09-25 Erythrocyte distribution width (RBC) [Ratio] 12.8 % Normal 11.5-15.0 [facility] Comment on above: Order Comment: Speci men Type: BLOOD SPECIMENOrdering Facility: [facility] Address: [address] [place] [address] Performed By: #### 5 8410-2 ####[facility] LABORATORYCLIA [id number] [address] [place] Hematocrit (Bld) [Volume fraction] 41.9 % Normal 36.0-46.0 [facility] Comment on above: Order Comment: Speci men Type: BLOOD SPECIMENOrdering Facility: [facility] Address: [address] [place] [address] Performed By: #### 5 8410-2 ####[facility] LABORATORYCLIA [id number] [place] [id number] [place] Hemoglobin (Bld) [Mass/Vol] 14.4 g/dL Normal 11.5-15.5 [facility] Comment on above: Order Comment: Speci men Type: BLOOD SPECIMENOrdering Facility: [facility] Address: [address] [place], [place] [id number] Performed By: #### 5 8410-2 ####[facility] LABORATORYCLIA [id number] [address] MCH (RBC) [Entitic mass] 31.9 pg Normal 26.0-34.0 [facility] Comment on above: Order Comment: Speci men Type: BLOOD SPECIMENOrdering Facility: [facility] Address: [address] [place] [address] Performed By: #### 5 8410-2 ####[facility] LABORATORYCLIA [id number] [address] [place] MCHC (RBC) [Mass/Vol] 34.4 g/dL Normal 30.5-36.0 [facility] Comment on above: Order Comment: Speci men Type: BLOOD SPECIMENOrdering Facility: [facility] Address: [address] [place] [address] Performed By: #### 5 8410-2 ####[facility] LABORATORYCLIA [id number] [address] STATES [facility] MCV (RBC) [Entitic vol] 92.9 fL Normal 80.0-100.0 [facility] Comment on above: Order Comment: Speci men Type: BLOOD SPECIMENOrdering Facility: [facility] Address: [address] [place] [address] Performed By: #### 5 8410-2 ####[facility] LABORATORYCLIA [id number] [address] Nucleated RBC (Bld) [#/Vol] 10*3/uL Normal <0.01 [facility] Comment on above: Order Comment: Speci men Type: BLOOD SPECIMENOrdering Facility: [facility] Address: [address] [place] [address] Performed By: #### 5 8410-2 ####[facility] LABORATORYCLIA [id number] [address] [place] Platelet mean volume (Bld) [Entitic vol] 9.8 fL Normal 9.0-12.7 [facility] Comment on above: Order Comment: Speci men Type: BLOOD SPECIMENOrdering Facility: [facility] Address: [address] [place] [address] Performed By: #### 5 8410-2 ####[facility] LABORATORYCLIA [id number] [address] STATES [place] [facility] Platelets (Bld) [#/Vol] 257 10*3/uL Normal 150-400 [facility] Comment on above: Order Comment: Speci men Type: BLOOD SPECIMENOrdering Facility: [facility] Address: [address] [place] [address] Performed By: #### 5 8410-2 ####[facility] LABORATORYCLIA [id number] [place] [address] [place] RBC (Bld) [#/Vol] 4.51 10*6/uL Normal 3.90-5.20 [facility] Comment on above: Order Comment: Speci men Type: BLOOD SPECIMENOrdering Facility: [facility] Address: [address] [place] [address] Performed By: #### 5 8410-2 ####[facility] LABORATORYCLIA [id number] [address] WBC (Bld) [#/Vol] 5.53 10*3/uL Normal 3.70-11.00 [facility] Comment on above: Order Comment: Speci men Type: BLOOD SPECIMENOrdering Facility: [facility] Address: [address] [place] [address] Performed By: #### 5 8410-2 ####[facility] LABORATORYCLIA [id number] [address] [place] CONSULT PROGon 09-25-2024 CONSULT PROG Normal [facility] CRP SerPl-mCncon 09-25-2024 CRP [Mass/Vol] 0.5 mg/dL Normal <0.9 [facility] Comment on above: Order Comment: Speci men Type: BLOOD SPECIMENOrdering Facility: [facility] Address: [address] [place] [address] Performed By: #### 1 988-5, 67814-1, 6-3, 09306-0 ####[facility] LABORATORYCLIA [id number] [place] [id number] [place] ECG COMPLETEon 09-25-2024 ECG COMPLETE Normal [facility] ECHO WITH AGITATED SALINE CO NTRASTon 09-25-2024 ECHO WITH AGITATED SALINE CONTRAST Normal [facility] ESR Westergren method (Bld) [Velocity]on 09-25-2024 ESR (Bld) [Velocity] 8 mm/h Normal 0-20 [facility] Comment on above: Order Comment: Speci men Type: BLOOD SPECIMENOrdering Facility: [facility] Address: [address] [place] [address] Performed By: #### 4 537-7 ####[facility] LABCLIA [id number] [address] [place] HIGH SENSITIVITY TROPONIN To n 09-25-2024 Troponin T.cardiac High sensitivity method [Mass/Vol] 9 ng/L Normal <12 [facility] Comment on above: Order Comment: Speci men Type: BLOOD SPECIMENOrdering Facility: [facility] Address: [address] [place] [address] Performed By: #### H STNT ####[facility] LABORATORYCLIA [id number] [place] [address] [place] Magnesium SerPl-mCncon 09-25 Magnesium [Mass/Vol] 2.2 mg/dL Normal 1.7-2.3 [facility] Comment on above: Order Comment: Speci men Type: BLOOD SPECIMENOrdering Facility: [facility] Address: [address] [place] [address] Performed By: #### 1 988-5, 94918-6, 3015-3, 09153-4 ####[facility] LABORATORYCLIA [id number] [place] [address] [place] NURSING PROGon 09-25-2024 NURSING PROG Normal [facility] Renal function 2000 panelon 09-25-2024 Albumin [Mass/Vol] 4.1 g/dL Normal 3.9-4.9 [facility] Comment on above: Order Comment: Speci men Type: BLOOD SPECIMENOrdering Facility: [facility] Address: [address] [place] [address] Performed By: #### 1 988-5, 21162-3, 3016-3, 46460-5 ####[facility] LABORATORYCLIA [id number] [place] [address] [place] Anion gap [Moles/Vol] 11 mmol/L Normal 8-15 [facility] Comment on above: Order Comment: Speci men Type: BLOOD SPECIMENOrdering Facility: [facility] Address: [address] [place] [address] Performed By: #### 1 988-5, 11275-2, 3016-3, 60832-3 ####[facility] LABORATORYCLIA [id number] [place] [address] [place] Calcium [Mass/Vol] 9.4 mg/dL Normal 8.5-10.2 [facility] Comment on above: Order Comment: Speci men Type: BLOOD SPECIMENOrdering Facility: [facility] Address: [address] [place] [address] Performed By: #### 1 988-5, 02604-5, 3016-3, 52389-5 ####[facility] LABORATORYCLIA [id number] [place] [address] [place] Chloride [Moles/Vol] 107 mmol/L Normal 98-107 [facility] Comment on above: Order Comment: Speci men Type: BLOOD SPECIMENOrdering Facility: [facility] Address: [address] [place] [address] Performed By: #### 1 988-5, 22337-1, 3016-3, 16032-1 ####[facility] LABORATORYCLIA [id number] [place] [address] [place] CO2 [Moles/Vol] 23 mmol/L Normal 22-30 [facility] Comment on above: Order Comment: Speci men Type: BLOOD SPECIMENOrdering Facility: [facility] Address: [address] [place] [address] Performed By: #### 1 988-5, 54428-8, 3016-3, 67747-9 ####[facility] LABORATORYCLIA [id number] [place] [address] [place] Creatinine [Mass/Vol] 0.79 mg/dL Normal 0.58-0.96 [facility] Comment on above: Order Comment: Speci men Type: BLOOD SPECIMENOrdering Facility: [facility] Address: [address] [place] [address] Performed By: #### 1 988-5, 91773-1, 6-3, 49743-1 ####[facility]ITALCL[facility] [id number] [address] STATES [facility] Creatinine and Glomerular filtration rate.predicted panel (S/P/Bld) 81 mL/min/1.73m??? Normal >=60 [facility] Comment on above: Order Comment: Speci men Type: BLOOD SPECIMENOrdering Facility: [facility] Address: [address] [place] [address] Result Comment: Conchita mated Glomerular Filtration Rate [...] reflect actual GFR. Performed By: #### 1 988-5, 81766-3, 6-3, 78092-5 ####[facility] LABORATORYCLIA [id number] [place] [id number] [place] Glucose [Mass/Vol] 94 mg/dL Normal 74-99 [facility] Comment on above: Order Comment: Speci men Type: BLOOD SPECIMENOrdering Facility: [facility] Address: [address] [place] [address] Result Comment: The [place] [employer] (ADA) provides guidance for cutoff [...] Standards of Medical Care in Diabetes 2016, [employer]. Diabetes Care. 2016.39(Suppl 1). Performed By: #### 1 988-5, 89336-7, 6-3, 87311-8 ####[facility] LABORATORYCLIA [id number] [place] [address] [place] Phosphate [Mass/Vol] 3.3 mg/dL Normal 2.7-4.8 [facility] Comment on above: Order Comment: Speci men Type: BLOOD SPECIMENOrdering Facility: [facility] Address: [address] [place] [address] Performed By: #### 1 988-5, 80645-9, 6-3, 22363-0 ####[facility] LABORATORYCLIA [id number] [place] [address] [place] Potassium [Moles/Vol] 3.8 mmol/L Normal 3.7-5.1 [facility] Comment on above: Order Comment: Speci men Type: BLOOD SPECIMENOrdering Facility: [facility] Address: [address] [place] [address] Performed By: #### 1 988-5, 43777-6, 6-3, 69116-8 ####[facility] LABORATORYCLIA [id number] [place] [address] [place] Sodium [Moles/Vol] 141 mmol/L Normal 136-144 [facility] Comment on above: Order Comment: Speci men Type: BLOOD SPECIMENOrdering Facility: [facility] Address: [address] [place] [address] Performed By: #### 1 988-5, 18665-3, 3016-3, 24187-0 ####[facility] LABORATORYCLIA [id number] [address] Urea nitrogen [Mass/Vol] 13 mg/dL Normal 7-21 [facility] Comment on above: Order Comment: Speci men Type: BLOOD SPECIMENOrdering Facility: [facility] Address: [address] [place] [address] Performed By: #### 1 988-5, 40503-5, 3016-3, 54501-7 ####[facility] LABORATORYCLIA [id number] [address] OF [facility] TSH SerPl-aCncon 09-25-2024 TSH Qn 2.230 m[IU]/L Normal 0.270-4.200 [facility] Comment on above: Order Comment: Speci men Type: BLOOD SPECIMENOrdering Facility: [facility] Address: [address] [place] [address] Performed By: #### 1 988-5, 28197-8, 3016-3, 50548-1 ####[facility] LABORATORYCLIA [id number] [address] [place] aPTT PPPon 09-25-2024 aPTT Coag (PPP) [Time] 58.2 s High 23.0-32.4 [facility] Comment on above: Order Comment: Speci men Type: BLOOD SPECIMENOrdering Facility: [facility] Address: [facility] [place] [address] Performed By: #### 1 4979-9 ####[facility] LABORATORYCLIA [id number] [address] aPTT Coag (PPP) [Time] 63.4 s High 23.0-32.4 [facility] Comment on above: Order Comment: Speci men Type: BLOOD SPECIMENOrdering Facility: [facility] Address: [address] [place] [address] Performed By: #### 1 4979-9 ####[facility] LABORATORYCLIA [id number] [address] [place] [facility] CBC panel Auto (Bld)on 09-24 Erythrocyte distribution width (RBC) [Ratio] 12.5 % Normal 11.5-15.0 [facility] Comment on above: Order Comment: Speci men Type: BLOOD SPECIMENOrdering Facility: [facility] Address: [address] [place] [address] Performed By: #### 5 8410-2 ####[facility] LABORATORYCLIA [id number] [address] Hematocrit (Bld) [Volume fraction] 40.1 % Normal 36.0-46.0 [facility] Comment on above: Order Comment: Speci men Type: BLOOD SPECIMENOrdering Facility: [facility] Address: [address] [place] [address] Performed By: #### 5 8410-2 ####[facility] LABORATORYCLIA [id number] [address] Hemoglobin (Bld) [Mass/Vol] 13.6 g/dL Normal 11.5-15.5 [facility] Comment on above: Order Comment: Speci men Type: BLOOD SPECIMENOrdering Facility: [facility] Address: [address] [place] [address] Performed By: #### 5 8410-2 ####[facility] LABORATORYCLIA [id number] [place] [facility] MCH (RBC) [Entitic mass] 31.6 pg Normal 26.0-34.0 [facility] Comment on above: Order Comment: Speci men Type: BLOOD SPECIMENOrdering Facility: [facility] Address: [address] [place] [address] Performed By: #### 5 8410-2 ####[facility] LABORATORYCLIA [id number] [address] [place] MCHC (RBC) [Mass/Vol] 33.9 g/dL Normal 30.5-36.0 [facility] Comment on above: Order Comment: Speci men Type: BLOOD SPECIMENOrdering Facility: [facility] Address: [address] [place] [address] Performed By: #### 5 8410-2 ####[facility] LABORATORYCLIA [id number] [address] [place] [facility] MCV (RBC) [Entitic vol] 93.0 fL Normal 80.0-100.0 [facility] Comment on above: Order Comment: Speci men Type: BLOOD SPECIMENOrdering Facility: [facility] Address: [address] [place] [address] Performed By: #### 5 8410-2 ####[facility] LABORATORYCLIA [id number] [place] Nucleated RBC (Bld) [#/Vol] 10*3/uL Normal <0.01 [facility] Comment on above: Order Comment: Speci men Type: BLOOD SPECIMENOrdering Facility: [facility] Address: [address] [place] [address] Performed By: #### 5 8410-2 ####[facility] LABORATORYCLIA [id number] [address] [place] Platelet mean volume (Bld) [Entitic vol] 9.5 fL Normal 9.0-12.7 [facility] Comment on above: Order Comment: Speci men Type: BLOOD SPECIMENOrdering Facility: [facility] Address: [address] [place] [address] Performed By: #### 5 8410-2 ####[facility] LABORATORYCLIA [id number] [address] [place] Platelets (Bld) [#/Vol] 249 10*3/uL Normal 150-400 [facility] Comment on above: Order Comment: Speci men Type: BLOOD SPECIMENOrdering Facility: [facility] Address: [address] [place] [address] Performed By: #### 5 8410-2 ####[facility] LABORATORYCLIA [id number] [address] [place] RBC (Bld) [#/Vol] 4.31 10*6/uL Normal 3.90-5.20 [facility] Comment on above: Order Comment: Speci men Type: BLOOD SPECIMENOrdering Facility: [facility] Address: [address] [place] [address] Performed By: #### 5 8410-2 ####[facility] LABORATORYCLIA [id number] [place] [address] [place] WBC (Bld) [#/Vol] 6.52 10*3/uL Normal 3.70-11.00 [facility] Comment on above: Order Comment: Speci men Type: BLOOD SPECIMENOrdering Facility: [facility] Address: [address] [place] [address] Performed By: #### 5 8410-2 ####[facility] LABORATORYCLIA [id number] [address] [place] Erythrocyte distribution width (RBC) [Ratio] 12.3 % Normal 11.5-15.0 [facility] Comment on above: Order Comment: Speci men Type: BLOOD SPECIMENOrdering Facility: [facility] Address: [address] [place] [address] Performed By: #### 5 8410-2 ####[facility] [place] LABCLIA [id number] [place], [place] [address] [place] [address] [place] Hematocrit (Bld) [Volume fraction] 45.0 % Normal 36.0-46.0 [facility] Comment on above: Order Comment: Speci men Type: BLOOD SPECIMENOrdering Facility: [facility] Address: [address] [place] [address] Performed By: #### 5 8410-2 ####[facility] [place] LABCLIA [id number] [address] [place] Hemoglobin (Bld) [Mass/Vol] 14.8 g/dL Normal 11.5-15.5 [facility] Comment on above: Order Comment: Speci men Type: BLOOD SPECIMENOrdering Facility: [facility] Address: [address] [place] [address] Performed By: #### 5 8410-2 ####[facility] [place] LABCLIA [id number] [place] [address] [facility] MCH (RBC) [Entitic mass] 30.5 pg Normal 26.0-34.0 [facility] Comment on above: Order Comment: Speci men Type: BLOOD SPECIMENOrdering Facility: [facility] Address: [address] [place] [address] Performed By: #### 5 8410-2 ####[facility] LABCLIA [id number] [place] [address] [facility] MCHC (RBC) [Mass/Vol] 32.9 g/dL Normal 30.5-36.0 [facility] Comment on above: Order Comment: Speci men Type: BLOOD SPECIMENOrdering Facility: [facility] Address: [address] [place] [address] Performed By: #### 5 8410-2 ####[facility] LABCLIA [id number] [place] [address] [place] [facility] MCV (RBC) [Entitic vol] 92.6 fL Normal 80.0-100.0 [facility] Comment on above: Order Comment: Speci men Type: BLOOD SPECIMENOrdering Facility: [facility] Address: [address] [place] [address] Performed By: #### 5 8410-2 ####[facility] LABCLIA [id number] [place] [address] [place] [facility] Platelet mean volume (Bld) [Entitic vol] 9.4 fL Normal 9.0-12.7 [facility] Comment on above: Order Comment: Speci men Type: BLOOD SPECIMENOrdering Facility: [facility] Address: [address] [place] [address] Performed By: #### 5 8410-2 ####[facility] LABCLIA [id number] [place] [address] [facility] Platelets (Bld) [#/Vol] 294 10*3/uL Normal 150-400 [facility] Comment on above: Order Comment: Speci men Type: BLOOD SPECIMENOrdering Facility: [facility] Address: [address] [place] [address] Performed By: #### 5 8410-2 ####[facility] [place] LABCLIA [id number] [place] [address] [place] RBC (Bld) [#/Vol] 4.86 10*6/uL Normal 3.90-5.20 [facility] Comment on above: Order Comment: Speci men Type: BLOOD SPECIMENOrdering Facility: [facility] Address: [address] [place] [address] Performed By: #### 5 8410-2 ####[facility] LABCLIA [id number] [place] [address] [facility] WBC (Bld) [#/Vol] 8.41 10*3/uL Normal 3.70-11.00 [facility] Comment on above: Order Comment: Speci men Type: BLOOD SPECIMENOrdering Facility: [facility] Address: [address] [place] [address] Performed By: #### 5 8410-2 ####[facility] [place] LABCLIA [id number] [place] [address] [facility] ECG COMPLETEon 09-24-2024 ECG COMPLETE Normal [facility] ECG COMPLETE Normal [facility] ED NOTEon 09-24-2024 ED NOTE HNO ID: [id number] Author: DEVANTE HERNANDEZ RN Service: Emergency Medicine Author Type: Registered Nurse Type: ED Notes Filed: 09/24/2024 20:29 Note Text: [facility] present at bedside. Report given to transfer team. Normal [facility] ED NOTE HNO ID: [id number] Author: DEVANTE HERNANDEZ RN Service: Emergency Medicine Author Type: Registered Nurse Type: ED Notes Filed: 09/24/2024 19:24 Note Text: Change of shift report received from Rio O., RN. I assumed patient care at this time. Normal [facility] ED NOTE Normal [facility] ED NOTE HNO ID: [id number] Author: RIO CARRANZA RN Service: ? Author Type: Registered Nurse Type: ED Notes Filed: 09/24/2024 19:08 Note Text: Report to aruna hernandez rn. [facility] ED NOTE HNO ID: [id number] Author: RIO CARRANZA RN Service: ? Author Type: Registered Nurse Type: ED Notes Filed: 09/24/2024 19:01 Note Text: Attempted to call report to [facility], nurses are in report at this time and unable to take report on pt [facility] ED NOTE HNO ID: [id number] Author: RIO CARRANZA RN Service: ? Author Type: Registered Nurse Type: ED Notes Filed: 09/24/2024 18:47 Note Text: Meal tray delivered to pt [facility] ED NOTE HNO ID: [id number] Author: RIO CARRANZA RN Service: ? Author Type: Registered Nurse Type: ED Notes Filed: 09/24/2024 18:35 Note Text: Meal tray ordered for pt [facility] ED NOTE HNO ID: [id number] Author: RIO CARRANZA RN Service: ? Author Type: Registered Nurse Type: ED Notes Filed: 09/24/2024 17:42 Note Text: Pt states pain is better, but is still having chest pressure [facility] ED NOTE Normal [facility] ED NOTE HNO ID: [id number] Author: ?, ?, ? Service: Emergency Medicine Author Type: ? Type: ED Notes Filed: 09/24/2024 17:11 Note Text: Pt states that her pain has not improved after the first nitro was given [facility] ED NOTE HNO ID: [id number] Author: ?, ?, ? Service: Emergency Medicine Author Type: ? Type: ED Notes Filed: 09/24/2024 17:11 Note Text: Patient states her pain is a 4/10. She states that it feels like a pressure in her chest. First nitro given [facility] ED NOTE HNO ID: [id number] Author: ?, ?, ? Service: Emergency Medicine Author Type: ? Type: ED Notes Filed: 09/24/2024 17:03 Note Text: Dr. Almodovar at bedside [facility] ED NOTE HNO ID: [id number] Author: ?, ?, ? Service: Emergency Medicine Author Type: ? Type: ED Notes Filed: 09/24/2024 16:52 Note Text: Pt complains a 4/[address] Almodovar made aware. EKG ordered. [facility] ED NOTE HNO ID: [id number] Author: RIO CARRANZA RN Service: ? Author Type: Registered Nurse Type: ED Notes Filed: 09/24/2024 14:05 Note Text: Per dr almodovar ptt was redrawn [facility] ED NOTE HNO ID: [id number] Author: RIO CARRANZA RN Service: ? Author Type: Registered Nurse Type: ED Notes Filed: 09/24/2024 12:18 Note Text: Meal tray ordered for pt [facility] ED NOTE HNO ID: [id number] Author: RIO CARRANZA RN Service: ? Author Type: Registered Nurse Type: ED Notes Filed: 09/24/2024 07:34 Note Text: Received report from mikala gutierres rn. Pt resting in bed at this time, breakfast tray given to pt. [facility] ED NOTE HNO ID: [id number] Author: RIO ALMEIDA RN Service: Emergency Medicine Author Type: Registered Nurse Type: ED Notes Filed: 09/24/2024 06:13 Note Text: Patient up to bsc. CP gone. Patient states she feels better. [facility] ED NOTE HNO ID: [id number] Author: RIO ALMEIDA RN Service: Emergency Medicine Author Type: Registered Nurse Type: ED Notes Filed: 09/24/2024 00:55 Note Text: Patient converted to NSR with rate of 99 [facility] ED NOTE HNO ID: [id number] Author: RIO ALMEIDA RN Service: Emergency Medicine Author Type: Registered Nurse Type: ED Notes Filed: 09/24/2024 00:52 Note Text: Patient cardioverted at 200 joules Normal [facility] ED NOTE HNO ID: [id number] Author: RIO ALMEIDA, BERNABE Service: Emergency Medicine Author Type: Registered Nurse Type: ED Notes Filed: 09/24/2024 00:45 Note Text: Consent form signed for cardioversion. Respiratory at bedside. Normal [facility] ED PROV NOTEon 09-24-2024 ED PROV NOTE Normal [facility] HIGH SENSITIVITY TROPONIN To n 09-24-2024 Troponin T.cardiac High sensitivity method [Mass/Vol] 12 ng/L High <12 [facility] Comment on above: Order Comment: Prince omer Type: BLOOD SPECIMENOrdering Facility: [facility] Address: [address] [place] [address] Performed By: #### H STNT ####[facility] LABCLIA [id number] [address] Troponin T.cardiac High sensitivity method [Mass/Vol] 19 ng/L High <12 [facility] Comment on above: Order Comment: Prince omer Type: BLOOD SPECIMENOrdering Facility: [facility] Address: [address] [place] [address] Performed By: #### H STNT ####[facility] LOD LABCLIA [id number] [place] [address] [facility] HISTORY PHYSICALon HISTORY PHYSICAL Normal [facility] PT panel Coag (PPP)on 2024 INR Coag (PPP) [Relative time] 1.0 {INR} Normal 0.9-1.3 [facility] Comment on above: Order Comment: Prince omer Type: BLOOD SPECIMENOrdering Facility: [facility] Address: [address] [place] [address] Result Comment: [place] min K Antagonist (VKA) Therapeutic Range: INR 2 to 3 (Target INR of 2.5)Note: For patients treated with VKA drugs, such as warfarin, the [employer] 2012 Guideline recommends [...] al. Chest 2012, 141:7S-47SNishimshruthi RA, et al. [facility] 2017, 70: 252-289 Performed By: #### 3 4528-0, 93085-9 ####[facility]ITAL[facility] [id number] [address] [place] [facility] PT Coag (PPP) [Time] 11.0 s Normal 9.7-13.0 [facility] Comment on above: Order Comment: Prince omer Type: BLOOD SPECIMENOrdering Facility: [facility] Address: [address] [place] [address] Performed By: #### 3 4528-0, 46907-4 ####[facility] LABORATORYCLIA [id number] INR Coag (PPP) [Relative time] 1.0 {INR} Normal 0.9-1.3 [facility] Comment on above: Order Comment: Prince omer Type: BLOOD SPECIMENOrdering Facility: [facility] Address: [address] [place] [address] Result Comment: [place] min K Antagonist (VKA) Therapeutic Range: INR 2 to 3 (Target INR of 2.5)Note: For patients treated with VKA drugs, such as warfarin, the [employer] 2012 Guideline recommends [...] 2.5 to 3.5 (target INR of 3).Tommy ADAME et ronni. Chest 2012, 141:7S-47SFransisca SCHMITZ, et al. [facility] 2017, 70: 252-289 Performed By: #### 3 4528-0, 88630-8 ####[facility] LABCLIA [id number] [place] [address] [facility] PT Coag (PPP) [Time] 10.5 s Normal <13.1 [facility] Comment on above: Order Comment: Prince omer Type: BLOOD SPECIMENOrdering Facility: [facility] Address: [address] [place] [address] Performed By: #### 3 4528-0, 12280-9 ####[facility]PRO[facility] [id number] [place] [address] [facility] INR Coag (PPP) [Relative time] 1.0 {INR} Normal 0.9-1.3 [facility] Comment on above: Order Comment: Prince omer Type: BLOOD SPECIMENOrdering Facility: [facility] Address: [address] [place] [address] Result Comment: [place] min K Antagonist (VKA) Therapeutic Range: INR 2 to 3 (Target INR of 2.5)Note: For patients treated with VKA drugs, such as warfarin, the [employer] 2012 Guideline recommends [...] of 2.5 to 3.5 (target INR of 3).tiffany Doyle. Chest 2012, 141:7S-47SFransisca SCHMITZ et al. [facility] 2017, 70: 252-289 Performed By: #### 1 4979-9, 80765-3 ####[facility] LABCLIA [id number] [place] [address] [facility] PT Coag (PPP) [Time] 10.5 s Normal <13.1 [facility] Comment on above: Order Comment: Speci men Type: BLOOD SPECIMENOrdering Facility: [facility] Address: [address] [place] [address] Performed By: #### 1 4979-9, 02227-7 ####[facility] LABCLIA [id number] [place] [address] [facility] aPTT PPPon 09-24-2024 aPTT Coag (PPP) [Time] 36.1 s High 23.0-32.4 [facility] Comment on above: Order Comment: Speci men Type: BLOOD SPECIMENOrdering Facility: [facility] Address: [address] [place] [address] Performed By: #### 3 4528-0, 25630-3 ####[facility] LABORATORYCLIA [id number] [place], [place] [address] [place] [address] aPTT Coag (PPP) [Time] 39.8 s High 23.0-32.4 [facility] Comment on above: Order Comment: Speci men Type: BLOOD SPECIMENOrdering Facility: [facility] Address: [address] [place] [address] Performed By: #### 1 4979-9 ####[facility] LABCLIA [id number] [place] [address] [facility] aPTT Coag (PPP) [Time] 27.6 s Normal 23.0-32.4 [facility] Comment on above: Order Comment: Speci men Type: BLOOD SPECIMENOrdering Facility: [facility] Address: [address] [place] [address] Performed By: #### 1 4979-9 ####[facility] [place] LABCLIA [id number] [place] [address] [facility] aPTT Coag (PPP) [Time] 93.7 s High 23.0-32.4 [facility] Comment on above: Order Comment: Speci men Type: BLOOD SPECIMENOrdering Facility: [facility] Address: [address] [place], [place] [address] Performed By: #### 3 4528-0, 82341-4 ####[facility] LABCLIA [id number] [place] [address] [facility] aPTT Coag (PPP) [Time] 23.6 s Normal 23.0-32.4 [facility] Comment on above: Order Comment: Speci men Type: BLOOD SPECIMENOrdering Facility: [facility] Address: [address] [place], [place] [address] Performed By: #### 1 4979-9, 02796-3 ####[facility] [id number] [place] [address] [facility] ALK Phos Isoenzymeon 05-2 025 ALK PHOS, S 164 IU/L High 44-121 [facility] Comment on above: Order Comment: PLEAS E ADD TO BLOOD IN THE LAB. THANK YOU!! Performed By: #### L 3250.0100 ####[facility] [address] [place], [place], [address] BONE FRACTION 49 Normal 14-68 [facility] Comment on above: Order Comment: PLEAS E ADD TO BLOOD IN THE LAB. THANK YOU!! Performed By: #### L 3250.0100 ####[facility] [address] [place], [place], [id number] INTESTINAL FRAC 8 Normal 0-18 [facility] Comment on above: Order Comment: PLEAS E ADD TO BLOOD IN THE LAB. THANK YOU!! Result Comment: Perf ormed at: - [facility] [address] [id number] [place] Supervisor: Aj Lopez PhD, Phone: [phone] Performed By: #### L 3250.0100 ####[facility] [address] [place], [place], [address] LIVER FRACTION 43 Normal 18-85 [facility] Comment on above: Order Comment: BRYANNA Hutchinson ADD TO BLOOD IN THE LAB. THANK YOU!! Performed By: #### L 3250.0100 ####[facility] [address] [place], [place], [id number] CBC W Auto Differential pane l (Bld)on 09-23-2024 Basophils (Bld) [#/Vol] 0.06 10*3/uL Normal <0.11 [facility] Comment on above: Order Comment: Speci men Type: BLOOD SPECIMENOrdering Facility: [facility] Address: [address] [place] [address] Performed By: #### 5 7021-8 ####[facility] [place] LABCLIA [id number] [place] [address] [place] Basophils/100 WBC (Bld) 0.8 % Normal [facility] Comment on above: Order Comment: Speci men Type: BLOOD SPECIMENOrdering Facility: [facility] Address: [address] [place] [address] Performed By: #### 5 7021-8 ####[facility] LABCLIA [id number] [place] [address] [place] Differential cell count method Nom (Bld) Auto Normal [facility] Comment on above: Order Comment: Speci men Type: BLOOD SPECIMENOrdering Facility: [facility] Address: [address] [place] [address] Performed By: #### 5 7021-8 ####[facility] LABCLIA [id number] [place] [address] [place] Eosinophils (Bld) [#/Vol] 0.31 10*3/uL Normal <0.46 [facility] Comment on above: Order Comment: Speci men Type: BLOOD SPECIMENOrdering Facility: [facility] Address: [address] [place] [address] Performed By: #### 5 7021-8 ####[facility] LABCLIA [id number] [facility] [place] [address] [place] Eosinophils/100 WBC (Bld) 3.9 % Normal [facility] Comment on above: Order Comment: Speci men Type: BLOOD SPECIMENOrdering Facility: [facility] Address: [address] [place] [address] Performed By: #### 5 7021-8 ####[facility] LABCLIA [id number] [place] [address] [place] Erythrocyte distribution width (RBC) [Ratio] 12.4 % Normal 11.5-15.0 [facility] Comment on above: Order Comment: Speci men Type: BLOOD SPECIMENOrdering Facility: [facility] Address: [address] [place] [address] Performed By: #### 5 7021-8 ####[facility] LABCLIA [id number] [facility] [place] [address] [place] Hematocrit (Bld) [Volume fraction] 48.1 % High 36.0-46.0 [facility] Comment on above: Order Comment: Speci men Type: BLOOD SPECIMENOrdering Facility: [facility] Address: [address] [place] [address] Performed By: #### 5 7021-8 ####[facility] LABCLIA [id number] [facility] [place] [address] [place] Hemoglobin (Bld) [Mass/Vol] 15.7 g/dL High 11.5-15.5 [facility] Comment on above: Order Comment: Speci men Type: BLOOD SPECIMENOrdering Facility: [facility] Address: [address] [place] [address] Performed By: #### 5 7021-8 ####[facility] LABCLIA [id number] [facility] [place] [address] [place] Immature granulocytes (Bld) [#/Vol] 10*3/uL Normal <0.10 [facility] Comment on above: Order Comment: Speci men Type: BLOOD SPECIMENOrdering Facility: [facility] Address: [address] [place] [address] Performed By: #### 5 7021-8 ####[facility] LABCLIA [id number] [place] [address] [place] [facility] Immature granulocytes/100 WBC (Bld) 0.1 % Normal [facility] Comment on above: Order Comment: Speci men Type: BLOOD SPECIMENOrdering Facility: [facility] Address: [address] [place] [address] Performed By: #### 5 7021-8 ####[facility] LABCLIA [id number] [place] [address] [place] Lymphocytes (Bld) [#/Vol] 2.65 10*3/uL Normal 1.00-4.00 [facility] Comment on above: Order Comment: Speci men Type: BLOOD SPECIMENOrdering Facility: [facility] Address: [address] [place] [address] Performed By: #### 5 7021-8 ####[facility] LABCLIA [id number] [place] [id number] [place] [facility] Lymphocytes/100 WBC (Bld) 33.2 % Normal [facility] Comment on above: Order Comment: Speci men Type: BLOOD SPECIMENOrdering Facility: [facility] Address: [address] [place] [address] Performed By: #### 5 7021-8 ####[facility] LABCLIA [id number] [place] [address] [place] MCH (RBC) [Entitic mass] 30.5 pg Normal 26.0-34.0 [facility] Comment on above: Order Comment: Speci men Type: BLOOD SPECIMENOrdering Facility: [facility] Address: [address] [place] [address] Performed By: #### 5 7021-8 ####[facility] LABCLIA [id number] [place] [address] [place] MCHC (RBC) [Mass/Vol] 32.6 g/dL Normal 30.5-36.0 [facility] Comment on above: Order Comment: Speci men Type: BLOOD SPECIMENOrdering Facility: [facility] Address: [address] [place] [address] Performed By: #### 5 7021-8 ####[facility] LABCLIA [id number] [place] [address] [place] MCV (RBC) [Entitic vol] 93.4 fL Normal 80.0-100.0 [facility] Comment on above: Order Comment: Speci men Type: BLOOD SPECIMENOrdering Facility: [facility] Address: [address] [place] [address] Performed By: #### 5 7021-8 ####[facility] LABCLIA [id number] [place] [address] [place] Monocytes (Bld) [#/Vol] 0.73 10*3/uL Normal <0.87 [facility] Comment on above: Order Comment: Speci men Type: BLOOD SPECIMENOrdering Facility: [facility] Address: [address] [place] [address] Performed By: #### 5 7021-8 ####[facility] LABCLIA [id number] [place] [address] [facility] Monocytes/100 WBC (Bld) 9.2 % Normal [facility] Comment on above: Order Comment: Speci men Type: BLOOD SPECIMENOrdering Facility: [facility] Address: [address] [place] [address] Performed By: #### 5 7021-8 ####[facility] LABCLIA [id number] [place] [address] [place] Neutrophils (Bld) [#/Vol] 4.21 10*3/uL Normal 1.45-7.50 [facility] Comment on above: Order Comment: Speci men Type: BLOOD SPECIMENOrdering Facility: [facility] Address: [address] [place] [address] Performed By: #### 5 7021-8 ####[facility] LABCLIA [id number] [place] [address] [place] Neutrophils/100 WBC (Bld) 52.8 % Normal [facility] Comment on above: Order Comment: Speci men Type: BLOOD SPECIMENOrdering Facility: [facility] Address: [address] [place] [address] Performed By: #### 5 7021-8 ####[facility] LABCLIA [id number] [place] [address] [facility] [place] Nucleated RBC (Bld) [#/Vol] Normal [facility] Comment on above: Order Comment: Speci men Type: BLOOD SPECIMENOrdering Facility: [facility] Address: [address] [place] [address] Performed By: #### 5 7021-8 ####[facility] LABCLIA [id number] [place] [address] [place] Nucleated RBC/100 WBC (Bld) [Ratio] Normal [facility] Comment on above: Order Comment: Speci men Type: BLOOD SPECIMENOrdering Facility: [facility] Address: [address] [place] [address] Performed By: #### 5 7021-8 ####[facility] LABCLIA [id number] [place] [address] [place] Platelet mean volume (Bld) [Entitic vol] 9.4 fL Normal 9.0-12.7 [facility] Comment on above: Order Comment: Speci men Type: BLOOD SPECIMENOrdering Facility: [facility] Address: [address] [place] [address] Performed By: #### 5 7021-8 ####[facility] LABCLIA [id number] [place] [address] [place] Platelets (Bld) [#/Vol] 334 10*3/uL Normal 150-400 [facility] Comment on above: Order Comment: Speci men Type: BLOOD SPECIMENOrdering Facility: [facility] Address: [address] [place] [address] Performed By: #### 5 7021-8 ####[facility] LABCLIA [id number] [place] [address] [facility] RBC (Bld) [#/Vol] 5.15 10*6/uL Normal 3.90-5.20 [facility] Comment on above: Order Comment: Speci men Type: BLOOD SPECIMENOrdering Facility: [facility] Address: [address] [place] [address] Performed By: #### 5 7021-8 ####[facility] LABCLIA [id number] [place] [address] [facility] WBC (Bld) [#/Vol] 7.97 10*3/uL Normal 3.70-11.00 [facility] Comment on above: Order Comment: Speci men Type: BLOOD SPECIMENOrdering Facility: [facility] Address: [address] [place] [address] Performed By: #### 5 7021-8 ####[facility] LABCLIA [id number] [place] [address] [facility] Comprehensive metabolic 2000 panelon 09-23-2024 Albumin [Mass/Vol] 4.3 g/dL Normal 3.9-4.9 [facility] Comment on above: Order Comment: Speci men Type: BLOOD SPECIMENOrdering Facility: [facility] Address: [address] [place] [address] Performed By: #### 1 9123-9, 79223-3 ####[facility] LABCLIA [id number] [place] [address] [facility] ALP [Catalytic activity/Vol] 163 U/L High 34-123 [facility] Comment on above: Order Comment: Speci men Type: BLOOD SPECIMENOrdering Facility: [facility] Address: [address] [place] [address] Performed By: #### 1 23-9, 35977-0 ####[facility] LABCLIA [id number] [place] [address] [place] ALT With P-5'-P [Catalytic activity/Vol] 13 U/L Normal 7-38 [facility] Comment on above: Order Comment: Speci men Type: BLOOD SPECIMENOrdering Facility: [facility] Address: [address] [place] [address] Performed By: #### 1 23-9, 10450-4 ####[facility] LABCLIA [id number] [place] [address] [place] Anion gap [Moles/Vol] 13 mmol/L Normal 8-15 [facility] Comment on above: Order Comment: Speci men Type: BLOOD SPECIMENOrdering Facility: [facility] Address: [address] [place], [place] [address] Performed By: #### 1 9, 82110-1 ####[facility] LABCLIA [id number] [place] [address] [place] AST With P-5'-P [Catalytic activity/Vol] 13 U/L Normal 13-35 [facility] Comment on above: Order Comment: Speci men Type: BLOOD SPECIMENOrdering Facility: [facility] Address: [address] [place] [address] Performed By: #### 1 23-9, 95853-0 ####[facility] LABCLIA [id number] [place] [address] [place] Bilirubin [Mass/Vol] 0.3 mg/dL Normal 0.2-1.3 [facility] Comment on above: Order Comment: Speci men Type: BLOOD SPECIMENOrdering Facility: [facility] Address: [address] [place] [address] Performed By: #### 1 23-9, 74915-5 ####[facility] LABCLIA [id number] [place] [address] [place] Calcium [Mass/Vol] 10.3 mg/dL High 8.5-10.2 [facility] Comment on above: Order Comment: Speci men Type: BLOOD SPECIMENOrdering Facility: [facility] Address: [address] [place] [address] Performed By: #### 1 9123-9, 46540-9 ####[facility] LABCLIA [id number] [place] [address] [place] Chloride [Moles/Vol] 100 mmol/L Normal 98-107 [facility] Comment on above: Order Comment: Speci men Type: BLOOD SPECIMENOrdering Facility: [facility] Address: [address] [place] [address] Performed By: #### 1 9123-9, ####[facility] LABCLIA [id number] [place] [address] [place] CO2 [Moles/Vol] 26 mmol/L Normal 22-30 [facility] Comment on above: Order Comment: Speci men Type: BLOOD SPECIMENOrdering Facility: [facility] Address: [address] [place] [address] Performed By: #### 1 9123-9, 62755-1 ####[facility] LABCLIA [id number] [place] [address] [place] Creatinine [Mass/Vol] 0.85 mg/dL Normal 0.58-0.96 [facility] Comment on above: Order Comment: Speci men Type: BLOOD SPECIMENOrdering Facility: [facility] Address: [address] [place] [address] Performed By: #### 1 9123-9, 75046-6 ####[facility] LABCLIA [id number] [place] [address] [facility] [place] Creatinine and Glomerular filtration rate.predicted panel (S/P/Bld) 74 mL/min/1.73m??? Normal >=60 [facility] Comment on above: Order Comment: Speci men Type: BLOOD SPECIMENOrdering Facility: [facility] Address: [address] [place] [address] Result Comment: Conchita mated Glomerular Filtration Rate [...] actual GFR. Performed By: #### 1 9123-9, 58375-3 ####[facility] LABIA [id number] [place] [address] [place] Glucose [Mass/Vol] 124 mg/dL High 74-99 [facility] Comment on above: Order Comment: Prince omer Type: BLOOD SPECIMENOrdering Facility: [facility] Address: [address] [place] [address] Result Comment: The [employer] Diabetes Association (ADA) provides guidance for cutoff [...] Standards of Medical Care in Diabetes 2016, [employer]. Diabetes Care. 2016.39(Suppl 1). Performed By: #### 1 9123-9, 11928-1 ####[facility] LABIA [id number] [place] [address] [place] Potassium [Moles/Vol] 3.6 mmol/L Low 3.7-5.1 [facility] Comment on above: Order Comment: [place] omer Type: BLOOD SPECIMENOrdering Facility: [facility] Address: [address] [place] [place] [id number] Performed By: #### 1 9123-9, 81867-7 ####[facility] LABCLIA [id number] [facility] [place] [address] [place] Protein [Mass/Vol] 6.8 g/dL Normal 6.3-8.0 [facility] Comment on above: Order Comment: Speci men Type: BLOOD SPECIMENOrdering Facility: [facility] Address: [address] [place] [address] Performed By: #### 1 9123-9, 77605-2 ####[facility] LABCLIA [id number] [facility] [place] [address] [place] Sodium [Moles/Vol] 139 mmol/L Normal 136-144 [facility] Comment on above: Order Comment: Speci men Type: BLOOD SPECIMENOrdering Facility: [facility] Address: [address] [place] [address] Performed By: #### 1 9123-9, 26344-0 ####[facility] LABCLIA [id number] [place] [address] [place] Urea nitrogen [Mass/Vol] 20 mg/dL Normal 7-21 [facility] Comment on above: Order Comment: Speci men Type: BLOOD SPECIMENOrdering Facility: [facility] Address: [address] [place] [address] Performed By: #### 1 9123-9, 50034-5 ####[facility] LABCLIA [id number] [place] [address] [place] ECG COMPLETEon 09-23-2024 ECG COMPLETE Normal [facility] ED NOTEon 09-23-2024 ED NOTE HNO ID: [id number] Author: RIO ALMEIDA, BERNABE Service: Emergency Medicine Author Type: Registered Nurse Type: ED Notes Filed: 09/23/2024 22:49 Note Text: Patient c/o unable to catch breath 2liters n/c applied. Daughter at bedside. Normal [facility] ED PROV NOTEon 09-23-2024 ED PROV NOTE Normal [facility] Magnesium SerPl-mCncon 09-23 Magnesium [Mass/Vol] 2.0 mg/dL Normal 1.7-2.3 [facility] Comment on above: Order Comment: Speci men Type: BLOOD SPECIMENOrdering Facility: [facility] Address: [address] [place] [address] Performed By: #### 1 9123-9, 71282-2 ####[facility] LABCLIA [id number] [place] [address] [place] XR CHEST 1V FRONTALon 2024 XR CHEST 1V FRONTAL Normal [facility] Basic metabolic 2000 panelon 09-22-2024 Anion gap [Moles/Vol] 14 mmol/L Normal 8-15 [facility] Comment on above: Order Comment: Speci men Type: BLOOD SPECIMENOrdering Facility: [facility] Address: [address] [place] [address] Performed By: #### 2 4321-2, ####[facility]ORATORYCLIA [id number] [place] [address] [place] Calcium [Mass/Vol] 9.8 mg/dL Normal 8.5-10.2 [facility] Comment on above: Order Comment: Speci men Type: BLOOD SPECIMENOrdering Facility: [facility] Address: [address] [place] [address] Performed By: #### 2 4321-2, ####[facility]OR[facility]ORYCLIA [id number] [place] [address] [place] Chloride [Moles/Vol] 99 mmol/L Normal 98-107 [facility] Comment on above: Order Comment: Speci men Type: BLOOD SPECIMENOrdering Facility: [facility] Address: [address] [place] [address] Performed By: #### 2 4321-2, ####[facility]ORATORYCLIA [id number] [place] [address] [place] CO2 [Moles/Vol] 23 mmol/L Normal 22-30 [facility] Comment on above: Order Comment: Speci men Type: BLOOD SPECIMENOrdering Facility: [facility] Address: [address] [place] [address] Performed By: #### 2 4321-, ####[facility]ITAL[facility] [id number] [place] [id number] [place] [facility] Creatinine [Mass/Vol] 0.85 mg/dL Normal 0.58-0.96 [facility] Comment on above: Order Comment: Speci men Type: BLOOD SPECIMENOrdering Facility: [facility] Address: [address] [place] [address] Performed By: #### 2 432-2, ####[facility] [id number] [address] Creatinine and Glomerular filtration rate.predicted panel (S/P/Bld) 74 mL/min/1.73m??? Normal >=60 [facility] Comment on above: Order Comment: [place] men Type: BLOOD SPECIMENOrdering Facility: [facility] Address: [address] [place] [address] Result Comment: Conchita mated Glomerular Filtration Rate [...] reflect actual GFR. Performed By: #### 2 4321-, ####[facility] LABORATORYIA [id number] [place] [id number] [place] Glucose [Mass/Vol] 97 mg/dL Normal 74-99 [facility] Comment on above: Order Comment: Anthonylizett peter Type: BLOOD SPECIMENOrdering Facility: [facility] Address: [address] [place] [address] Result Comment: The [employer] Diabetes Association (ADA) provides guidance for cutoff [...] Standards of Medical Care in Diabetes 2016, [employer]. Diabetes Care. 2016.39(Suppl 1). Performed By: #### 2 4320-09, ####[facility] LABORATORYCLIA [id number] [place] [address] [place] Potassium [Moles/Vol] 3.6 mmol/L Low 3.7-5.1 [facility] Comment on above: Order Comment: [place] omer Type: BLOOD SPECIMENOrdering Facility: [facility] Address: [address] [place] [address] Performed By: #### 2 4320-09, ####[facility] [id number] [address] [place] [facility] Sodium [Moles/Vol] 136 mmol/L Normal 136-144 [facility] Comment on above: Order Comment: [place] omer Type: BLOOD SPECIMENOrdering Facility: [facility] Address: [address] [place] [address] Performed By: #### 2 4320-09, ####[facility] LABORATORYCLIA [id number] [address] [place] [facility] Urea nitrogen [Mass/Vol] 23 mg/dL High 7-21 [facility] Comment on above: Order Comment: [place] omer Type: BLOOD SPECIMENOrdering Facility: [facility] Address: [address] [place] [address] Performed By: #### 2 4320-09, ####[facility] LABORATORYCLIA [id number] [place] [address] [place] CBC W Auto Differential pane l (Bld)on 09-22-2024 Basophils (Bld) [#/Vol] 0.06 10*3/uL Normal <0.11 [facility] Comment on above: Order Comment: Speci men Type: BLOOD SPECIMENOrdering Facility: [facility] Address: [address] [place] [address] Performed By: #### 5 7021-8 ####[facility]ORYCLIA [id number] [address] STATES [facility] Basophils/100 WBC (Bld) 0.8 % Normal [facility] Comment on above: Order Comment: Speci men Type: BLOOD SPECIMENOrdering Facility: [facility] Address: [address] [place] [address] Performed By: #### 5 7021-8 ####[facility]ORYCLIA [id number] [address] Differential cell count method Nom (Bld) Auto Normal [facility] Comment on above: Order Comment: Speci men Type: BLOOD SPECIMENOrdering Facility: [facility] Address: [address] [place] [address] Performed By: #### 5 7021-8 ####[facility]ORYCLIA [id number] [address] [place] Eosinophils (Bld) [#/Vol] 0.12 10*3/uL Normal <0.46 [facility] Comment on above: Order Comment: Speci men Type: BLOOD SPECIMENOrdering Facility: [facility] Address: [address] [place] [address] Performed By: #### 5 7021-8 ####[facility]ORATORYCLIA [id number] [address] STATES [facility] Eosinophils/100 WBC (Bld) 1.7 % Normal [facility] Comment on above: Order Comment: Speci men Type: BLOOD SPECIMENOrdering Facility: [facility] Address: [address] [place] [address] Performed By: #### 5 7021-8 ####[facility]ORATORYCLIA [id number] [place] [address] [place] Erythrocyte distribution width (RBC) [Ratio] 12.3 % Normal 11.5-15.0 [facility] Comment on above: Order Comment: Speci men Type: BLOOD SPECIMENOrdering Facility: [facility] Address: [address] [place] [address] Performed By: #### 5 7021-8 ####[facility]ORYCLIA [id number] [address] [place] Hematocrit (Bld) [Volume fraction] 44.3 % Normal 36.0-46.0 [facility] Comment on above: Order Comment: Speci men Type: BLOOD SPECIMENOrdering Facility: [facility] Address: [address] [place] [address] Performed By: #### 5 7021-8 ####[facility] LABORATORYCLIA [id number] [address] [place] Hemoglobin (Bld) [Mass/Vol] 14.9 g/dL Normal 11.5-15.5 [facility] Comment on above: Order Comment: Speci men Type: BLOOD SPECIMENOrdering Facility: [facility] Address: [address] [place] [address] Performed By: #### 5 7021-8 ####[facility] LABORATORYCLIA [id number] [address] [place] Immature granulocytes (Bld) [#/Vol] 10*3/uL Normal <0.10 [facility] Comment on above: Order Comment: Speci men Type: BLOOD SPECIMENOrdering Facility: [facility] Address: [address] [place] [address] Performed By: #### 5 7021-8 ####[facility]ORYCLIA [id number] [address] [place] Immature granulocytes/100 WBC (Bld) 0.3 % Normal [facility] Comment on above: Order Comment: Speci men Type: BLOOD SPECIMENOrdering Facility: [facility] Address: [address] [place] [address] Performed By: #### 5 7021-8 ####[facility]ORATORYCLIA [id number] [address] [place] Lymphocytes (Bld) [#/Vol] 1.29 10*3/uL Normal 1.00-4.00 [facility] Comment on above: Order Comment: Speci men Type: BLOOD SPECIMENOrdering Facility: [facility] Address: [address] [place] [address] Performed By: #### 5 7021-8 ####[facility] LABORATORYCLIA [id number] [address] Lymphocytes/100 WBC (Bld) 18.2 % Normal [facility] Comment on above: Order Comment: Speci men Type: BLOOD SPECIMENOrdering Facility: [facility] Address: [address] [place] [address] Performed By: #### 5 7021-8 ####[facility] LABORATORYCLIA [id number] [address] [place] MCH (RBC) [Entitic mass] 31.1 pg Normal 26.0-34.0 [facility] Comment on above: Order Comment: Speci men Type: BLOOD SPECIMENOrdering Facility: [facility] Address: [address] [place] [address] Performed By: #### 5 7021-8 ####[facility] LABORATORYCLIA [id number] [address] [place] MCHC (RBC) [Mass/Vol] 33.6 g/dL Normal 30.5-36.0 [facility] Comment on above: Order Comment: Speci men Type: BLOOD SPECIMENOrdering Facility: [facility] Address: [address] [place] [address] Performed By: #### 5 7021-8 ####[facility] LABORATORYCLIA [id number] [address] MCV (RBC) [Entitic vol] 92.5 fL Normal 80.0-100.0 [facility] Comment on above: Order Comment: Speci men Type: BLOOD SPECIMENOrdering Facility: [facility] Address: [address] [place] [address] Performed By: #### 5 7021-8 ####[facility]ORATORYCLIA [id number] [place] [address] [place] Monocytes (Bld) [#/Vol] 0.41 10*3/uL Normal <0.87 [facility] Comment on above: Order Comment: Speci men Type: BLOOD SPECIMENOrdering Facility: [facility] Address: [address] [place] [address] Performed By: #### 5 7021-8 ####[facility]OR[facility]ORYCLIA [id number] [address] [place] Monocytes/100 WBC (Bld) 5.8 % Normal [facility] Comment on above: Order Comment: Speci men Type: BLOOD SPECIMENOrdering Facility: [facility] Address: [address] [place] [address] Performed By: #### 5 7021-8 ####[facility]ORATORYCLIA [id number] [address] [place] Neutrophils (Bld) [#/Vol] 5.20 10*3/uL Normal 1.45-7.50 [facility] Comment on above: Order Comment: Speci men Type: BLOOD SPECIMENOrdering Facility: [facility] Address: [address] [place] [address] Performed By: #### 5 7021-8 ####[facility]ORATORYCLIA [id number] [address] [place] Neutrophils/100 WBC (Bld) 73.2 % Normal [facility] Comment on above: Order Comment: Speci men Type: BLOOD SPECIMENOrdering Facility: [facility] Address: [address] [place] [address] Performed By: #### 5 7021-8 ####[facility]ORATORYCLIA [id number] [place] [address] [place] Nucleated RBC (Bld) [#/Vol] 10*3/uL Normal <0.01 [facility] Comment on above: Order Comment: Speci men Type: BLOOD SPECIMENOrdering Facility: [facility] Address: [address] [place] [address] Performed By: #### 5 7021-8 ####[facility] LABORATORYCLIA [id number] [address] [place] Nucleated RBC/100 WBC (Bld) [Ratio] 0.0 /100 WBC Normal [facility] Comment on above: Order Comment: Speci men Type: BLOOD SPECIMENOrdering Facility: [facility] Address: [address] [place] [address] Performed By: #### 5 7021-8 ####[facility] LABORATORYCLIA [id number] [place] [address] [place] Platelet mean volume (Bld) [Entitic vol] 9.4 fL Normal 9.0-12.7 [facility] Comment on above: Order Comment: Speci men Type: BLOOD SPECIMENOrdering Facility: [facility] Address: [address] [place] [address] Performed By: #### 5 7021-8 ####[facility] LABORATORYCLIA [id number] [place] [address] [place] Platelets (Bld) [#/Vol] 283 10*3/uL Normal 150-400 [facility] Comment on above: Order Comment: Speci men Type: BLOOD SPECIMENOrdering Facility: [facility] Address: [address] [place] [address] Performed By: #### 5 7021-8 ####[facility] LABORATORYCLIA [id number] [place] [address] [place] RBC (Bld) [#/Vol] 4.79 10*6/uL Normal 3.90-5.20 [facility] Comment on above: Order Comment: Speci men Type: BLOOD SPECIMENOrdering Facility: [facility] Address: [address] [place] [address] Performed By: #### 5 7021-8 ####[facility] LABORATORYCLIA [id number] [address] [place] WBC (Bld) [#/Vol] 7.10 10*3/uL Normal 3.70-11.00 [facility] Comment on above: Order Comment: Speci men Type: BLOOD SPECIMENOrdering Facility: [facility] Address: [address] [place] [address] Performed By: #### 5 7021-8 ####[facility] LABORATORYCLIA [id number] [address] [place] CNPNon 09-22-2024 CNPN Normal [facility] CTA CHEST (NON GATED) W IVCO N PEon 09-22-2024 CTA CHEST (NON GATED) W IVCON PE Normal [facility] D dimer FEU PPP-mCncon 09-22 Fibrin D-dimer FEU (PPP) [Mass/Vol] 530 ng/mL FEU High <500 [facility] Comment on above: Order Comment: Speci men Type: BLOOD SPECIMENOrdering Facility: [facility] Address: [address] [place] [address] Performed By: #### 4 8065-7 ####[facility] LODI LABCLIA [id number] [place], [place] [id number] [place] [address] [place] ECG COMPLETEon 09-22-2024 ECG COMPLETE Normal [facility] ED NOTEon 09-22-2024 ED NOTE Normal [facility] ED NOTE Normal [facility] ED PROV NOTEon 09-22-2024 ED PROV NOTE Normal [facility] ED Triage Noteon 09-22-2024 ED Triage Note Normal [facility] Fibrin D-dimer FEU (PPP) [Ma ss/Vol]on 09-22-2024 D DIMER AGE-RELATED CUTOFF 690 ng/mL FEU Normal [facility] Comment on above: Order Comment: Speci men Type: BLOOD SPECIMENOrdering Facility: [facility] Address: [address] [place] [address] Performed By: #### 4 8065-7 ####[facility] [place] LABCLIA [id number] [place] [address] [place] HIGH SENSITIVITY TROPONIN To n 09-22-2024 Troponin T.cardiac High sensitivity method [Mass/Vol] 6 ng/L Normal <12 [facility] Comment on above: Order Comment: Speci men Type: BLOOD SPECIMENOrdering Facility: [facility] Address: [address] [place] [address] Performed By: #### H STNT ####[facility] LAB[facility] [id number] [address] HIGH SENSITIVITY TROPONIN T (INITIAL)on 09-22-2024 Troponin T.cardiac High sensitivity method [Mass/Vol] <6 Normal <12 [facility] Comment on above: Order Comment: Speci men Type: BLOOD SPECIMENOrdering Facility: [facility] Address: [address] [place] [address] Performed By: #### L [id number] ####[facility] [id number] [address] HIGH SENSITIVITY TROPONIN T (SECOND)on 09-22-2024 Troponin T.cardiac High sensitivity method [Mass/Vol] 7 ng/L Normal <12 [facility] Comment on above: Order Comment: Speci men Type: BLOOD SPECIMENOrdering Facility: [facility] Address: [address] [place] [address] Performed By: #### L [id number] ####[facility] LABORATORYCLIA [id number] [address] Magnesium SerPl-mCncon 09-22 Magnesium [Mass/Vol] 2.1 mg/dL Normal 1.7-2.3 [facility] Comment on above: Order Comment: Speci men Type: BLOOD SPECIMENOrdering Facility: [facility] Address: [address] [place] [address] Performed By: #### 2 4321-2, 54164-8 ####[facility] LABORATORYCLIA [id number] [address] [place] NT-proBNP SerPl-mCncon 09-22 Natriuretic peptide.B prohormone N-Terminal [Mass/Vol] 171 pg/mL High <125 [facility] Comment on above: Order Comment: Speci men Type: BLOOD SPECIMENOrdering Facility: [facility] Address: [place] [address] Performed By: #### 3 3762-6 ####[facility] [place] LABCLIA [id number] [place] [address] [place] XR CHEST 2V FRONTAL/LATon XR CHEST 2V FRONTAL/LAT Normal [facility] ALP Bone [Catalytic fraction ]Ordered By: Verónica Lopez on 09-21-2024 Alkaline Phosphatase Iso-Bone 49 % 14-68 [facility] ALP Intest [Catalytic fracti on]Ordered By: Verónica Lopez on 09-21-2024 Alkaline Phosphatase Iso-Intestine 8 % 0-18 [facility] Comment on above: Performed at: [address] [id number] Director: Aj Lopez PhD, Phone: [phone] ALP Liver [Catalytic fractio n]Ordered By: Verónica Lopez on 09-21-2024 Alkaline Phosphatase Iso-Liver 43 % 18-85 [facility] Absolute neutrophil countOrd ered By: Verónica Lopez on 09-21-2024 Neutrophils (Bld) [#/Vol] 4.8 10*3/uL 2.0-7.7 [facility] Albumin to globulin ratioOrd ered By: Verónica Lopez on 09-21-2024 Albumin/Globulin [Mass ratio] 1.3 {ratio} 0.9-2.4 [facility] Alkaline phosphatase, serumO rdered By: Verónica Lopez on 09-21-2024 Alkaline Phosphatase Isoenzymes 164 IU/L High 44-121 [facility] ALP [Catalytic activity/Vol] 164 U/L High 44-121 [facility] Basophil percentageOrdered B y: Verónica Lopez on 09-21-2024 Basophils/100 WBC (Bld) 0.9 % 0-1 [facility] Bilirubin, totalOrdered By: Verónica Lopez on 09-21-2024 Bilirubin [Mass/Vol] 0.60 mg/dL 0.20-1.00 [facility] Comment on above: For patients on eltr ombopag therapy, use of Dimension Mccammon TBIL is not recommended. Blood urea nitrogen (BUN)/cr eatinine ratioOrdered By: Verónica Lopez on 09-21-2024 Urea nitrogen/Creatinine [Mass ratio] 16.4 mg/mg 10-20 [facility] CBC W/Diff, Automatedon Absolute Lymph 1.32 X10 3/uL Normal 0.83-4.51 [facility] Comment on above: Performed By: #### L 100.0100, L500.4050 ####[facility] [address] [place], [address] Absolute Neut 4.8 X10 3/uL Normal 2.0-7.7 [facility] Comment on above: Performed By: #### L 100.0100, L500.4050 ####[facility] [address] [place], [address] Basophils/100 WBC (Bld) 0.9 % Normal 0-1 [facility] Comment on above: Performed By: #### L 100.0100, L500.4050 ####[facility] [address] [place], [address] Eosinophils/100 WBC (Bld) 2.8 % Normal 0-5 [facility] Comment on above: Performed By: #### L 100.0100, L500.4050 ####[facility] [address] [place], [address] Erythrocyte distribution width (RBC) [Ratio] 12.4 % Normal 11.6-14.6 [facility] Comment on above: Performed By: #### L 100.0100, L500.4050 ####[facility] [address] [place], [address] Hematocrit (Bld) [Volume fraction] 44.5 % Normal 37-47 [facility] Comment on above: Performed By: #### L 100.0100, L500.4050 ####[facility] [address] [place], [address] Hemoglobin (Bld) [Mass/Vol] 14.7 g/dL Normal 12.0-15.0 [facility] Comment on above: Performed By: #### L 100.0100, L500.4050 ####[facility] [address] [place], [address] IG% 0.300 Normal 0.0-0.9 [facility] Comment on above: Result Comment: IG% - Immature Granulocytes (promyelocytes, myelocytes and metamyelocytes) > 1% indicates that a LEFT SHIFT is Present. Performed By: #### L 100.0100, L500.4050 ####[facility] [address] [place], [address] Lymphocytes/100 WBC (Bld) 19.3 % Normal 19-41 [facility] Comment on above: Performed By: #### L 100.0100, L500.4050 ####[facility] [address] [place], [address] MCH (RBC) [Entitic mass] 30.8 pg Normal 27.0-32.0 [facility] Comment on above: Performed By: #### L 100.0100, L500.4050 ####[facility] [address] [place], [address] MCHC (RBC) [Mass/Vol] 33.0 g/dL Normal 32-36 [facility] Comment on above: Performed By: #### L 100.0100, L500.4050 ####[facility] [address] [place], [address] MCV (RBC) [Entitic vol] 93.1 fL Normal 81-99 [facility] Comment on above: Performed By: #### L 100.0100, L500.4050 ####[facility] [address] [place], [address] Monocytes/100 WBC (Bld) 6.3 % Normal 0-10 [facility] Comment on above: Performed By: #### L 100.0100, L500.4050 ####[facility] [address] [place], [address] Neutrophils/100 WBC (Bld) 70.4 % High 47-70 [facility] Comment on above: Performed By: #### L 100.0100, L500.4050 ####[facility] [address] [place], [address] Nucleated RBC (Bld) [#/Vol] 0 10*3/uL Normal 0-5 [facility] Comment on above: Performed By: #### L 100.0100, L500.4050 ####[facility] [address] [place], [address] Platelet mean volume (Bld) [Entitic vol] 9.3 fL Normal 6.2-12.0 [facility] Comment on above: Performed By: #### L 100.0100, L500.4050 ####[facility] [address] [place], [address] Platelets (Bld) [#/Vol] 303 10*3/uL Normal 150-450 [facility] Comment on above: Performed By: #### L 100.0100, L500.4050 ####[facility] [address] [place], [address] RBC (Bld) [#/Vol] 4.78 10*6/uL Normal 4.2-5.4 [facility] Comment on above: Performed By: #### L 100.0100, L500.4050 ####[facility] [address] [place], [address] RDW SD 42.9 fl Normal 35.1-43.9 [facility] Comment on above: Performed By: #### L 100.0100, L500.4050 ####[facility] [address] [place], [address] WBC (Bld) [#/Vol] 6.8 10*3/uL Normal 4.4-11.0 [facility] Comment on above: Performed By: #### L 100.0100, L500.4050 ####[facility] [address] [place], [address] Carbon dioxide measurementOr dered By: Verónica Lopez on 09-21-2024 CO2 [Moles/Vol] 28.0 mmol/L 21.0-32.0 [facility] Chloride measurementOrdered By: Verónica Lopez on 09-21-2024 Chloride [Moles/Vol] 106 mmol/L 98-107 [facility] Comprehensive Metabolic Prof ilon 09-21-2024 Albumin [Mass/Vol] 3.9 g/dL Normal 3.2-5.0 [facility] Comment on above: Performed By: #### L 100.0100, L500.4050 ####[facility] [address] [place], [address] Albumin/Globulin [Mass ratio] 1.3 {ratio} Normal 0.9-2.4 [facility] Comment on above: Performed By: #### L 100.0100, L500.4050 ####[facility] [address] [place], [address] ALK P 152 U/L High 45-117 [facility] Comment on above: Performed By: #### L 100.0100, L500.4050 ####[facility] [address] [place], [address] ALT [Catalytic activity/Vol] 23 U/L Normal 13-56 [facility] Comment on above: Performed By: #### L 100.0100, L500.4050 ####[facility] [address] [place], [address] AST [Catalytic activity/Vol] 13 U/L Low 15-37 [facility] Comment on above: Performed By: #### L 100.0100, L500.4050 ####[facility] [address] [place], [address] Bilirubin [Mass/Vol] 0.60 mg/dL Normal 0.20-1.00 [facility] Comment on above: Result Comment: For patients on eltrombopag therapy, use of Dimension Mccammon TBIL is not recommended. Performed By: #### L 100.0100, L500.4050 ####[facility] [address] [place], [address] BUN/CRE 16.4 RATIO Normal 10-20 [facility] Comment on above: Performed By: #### L 100.0100, L500.4050 ####[facility] [address] [place], [address] CA,Total 9.4 mg/dL Normal 8.5-10.1 [facility] Comment on above: Performed By: #### L 100.0100, L500.4050 ####[facility] [address] [place], [address] Chloride [Moles/Vol] 106 mmol/L Normal 98-107 [facility] Comment on above: Performed By: #### L 100.0100, L500.4050 ####[facility] [address] [place], [address] CO2 [Moles/Vol] 28.0 mmol/L Normal 21.0-32.0 [facility] Comment on above: Performed By: #### L 100.0100, L500.4050 ####[facility] [address] [place], [address] Creatinine [Mass/Vol] 0.91 mg/dL Normal 0.55-1.02 [facility] Comment on above: Result Comment: The validity of the calculated GFR GFRAA in patients over 70 years has not been determined. Clinical correlation is essential. Performed By: #### L 100.0100, L500.4050 ####[facility] [address] [place], [address] ECRCL 58.26 ml/min Normal [facility] Comment on above: Performed By: #### L 100.0100, L500.4050 ####[facility] [address] [place], [address] EST GFR - AA 78 mL/min Normal >60 [facility] Comment on above: Result Comment: Afri can Welsh GFR Calc Performed By: #### L 100.0100, L500.4050 ####[facility] [address] [place], [address] GAP 6 Normal 5-15 [facility] Comment on above: Performed By: #### L 100.0100, L500.4050 ####[facility] [address] [place], [address] GFR/1.73 sq M.predicted among non-blacks MDRD (S/P/Bld) [Vol rate/Area] 65 mL/min/{1.73_m2} Normal >60 [facility] Comment on above: Result Comment: Non- GFR Calc Performed By: #### L 100.0100, L500.4050 ####[facility] [address] [place], [address] Globulin (S) [Mass/Vol] 3.1 g/dL Normal 2.2-4.2 [facility] Comment on above: Performed By: #### L 100.0100, L500.4050 ####[facility] [address] [place], [address] Glucose [Mass/Vol] 65 mg/dL Low 74-106 [facility] Comment on above: Performed By: #### L 100.0100, L500.4050 ####[facility] [address] [place], [address] Potassium [Moles/Vol] 3.4 mmol/L Low 3.5-5.1 [facility] Comment on above: Performed By: #### L 100.0100, L500.4050 ####[facility] [address] [place], [address] Sodium [Moles/Vol] 140 mmol/L Normal 136-145 [facility] Comment on above: Performed By: #### L 100.0100, L500.4050 ####[facility] [address] [place], [address] T PROT 7.0 g/dL Normal 6.4-8.2 [facility] Comment on above: Performed By: #### L 100.0100, L500.4050 ####[facility] [address] [place], [address] Urea nitrogen [Mass/Vol] 15 mg/dL Normal 7-18 [facility] Comment on above: Performed By: #### L 100.0100, L500.4050 ####[facility] [address] [place], [address] Eosinophil percentageOrdered By: Verónica Lopez on 09-21-2024 Eosinophils/100 WBC (Bld) 2.8 % 0-5 [facility] Erythrocyte distribution wid th ratioOrdered By: Verónica John on 09-21-2024 Erythrocyte distribution width (RBC) [Ratio] 12.4 % 11.6-14.6 [facility] Erythrocyte distribution wid th standard deviationOrdered By: Verónica John on 09-21-2024 Erythrocyte distribution width (RBC) [Entitic vol] 42.9 fL 35.1-43.9 [facility] Estimated glomerular filtrat ion rate (GFR) AmericanOrdered By: Verónica Lopez on 09-21-2024 Estimated GFR (MDRD) Amer 78 mL/min >60 [facility] Comment on above: GFR Calc Estimation of creatinine marielena aranceOrdered By: Verónica Lopez on 09-21-2024 Estimated Creatinine Clearance Calc 58.26 ml/min [facility] Glomerular filtration rate ( GFR) estimationOrdered By: Verónica Lopez on 09-21-2024 Estimated GFR (MDRD) Non-Af Amer 65 mL/min >60 [facility] Comment on above: Non- GFR Calc Glucose measurementOrdered B y: Verónica Lopez on 09-21-2024 Glucose [Mass/Vol] 65 mg/dL Low 74-106 [facility] Hematocrit Auto (Bld) [Volum e fraction]Ordered By: Verónica Lopez on 09-21-2024 Hematocrit (Bld) [Volume fraction] 44.5 % 37-47 [facility] Hemoglobin measurementOrdere d By: Verónica Lopez on 09-21-2024 Hemoglobin (Bld) [Mass/Vol] 14.7 g/dL 12.0-15.0 [facility] Immature granulocytes/100 WB C Auto (Bld)Ordered By: Verónica Lopez on 09-21-2024 Immature granulocytes/100 WBC (Bld) 0.300 % 0.0-0.9 [facility] Comment on above: IG% - Immature Granu locytes (promyelocytes, myelocytes and metamyelocytes) > 1% indicates that a LEFT SHIFT is Present. Laboratory - Chemistry and C hemistry - challengeOrdered By: Verónica Lopez on 09-21-2024 AST [Catalytic activity/Vol] 13 U/L Low 15-37 [facility] Lymphocytes Auto (Unsp spec) [#/Vol]Ordered By: Verónica Lopez on 09-21-2024 Lymphocytes (Bld) [#/Vol] 1.32 10*3/uL 0.83-4.51 [facility] Lymphocytes/100 WBC Auto (Un sp spec)Ordered By: Verónica Lopez on 09-21-2024 Lymphocytes/100 WBC (Bld) 19.3 % 19-41 [facility] MCV (mean corpuscular volume ) determinationOrdered By: Verónica Lopez on 09-21-2024 MCV (RBC) [Entitic vol] 93.1 fL 81-99 [facility] Mean corpuscular hemoglobin (MCH) determinationOrdered By: Verónica Lopez on 09-21-2024 MCH (RBC) [Entitic mass] 30.8 pg 27.0-32.0 [facility] Mean corpuscular hemoglobin concentration (MCHC) determinationOrdered By: Verónica Lopez on 09-21-2024 MCHC (RBC) [Mass/Vol] 33.0 g/dL 32-36 [facility] Mean platelet volume determi nationOrdered By: Verónica Lopez on 09-21-2024 Platelet mean volume (Bld) [Entitic vol] 9.3 fL 6.2-12.0 [facility] Monocyte percentageOrdered B y: Verónica Lopez on 09-21-2024 Monocytes/100 WBC (Bld) 6.3 % 0-10 [facility] Neutrophil percentageOrdered By: Verónica Lopez on 09-21-2024 Neutrophils/100 WBC (Bld) 70.4 % High 47-70 [facility] Nucleated red blood cell per centageOrdered By: Verónica Lopez on 09-21-2024 Nucleated RBC/100 WBC (Bld) [Ratio] 0 % 0-5 [facility] Oncology Visit Reporton 02 Oncology Visit Report [facility] [place] [facility] [address] [place] [address] OFFICE VISIT Date of Service: 09/21/24 1029 MR#: [id number] Acct: [id number] Name: BO JACOB Rep #: [id number] : 1955 From: Verónica CohenC Age/Sex: 68/F Location: [facility] [place] [facility] Status: Signed HPI Subjective Date of Service 09/21/24 Chief Complaint h/o breast cancer on endocrine therapy History of Present Illness Patient presented at age 68-year-old with stage IA (T1c, N0, M0) G3, ER positive, ME positive, 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 After skipping 2019 screening mammographies she felt a painless lump in the right breast and a diagnostic mammogram followed by a biopsy confirmed malignancy. April 28, 2020 she underwent a partial mastectomy with sentinel lymph node biopsy. Her work-up and surgery were done at [facility], she was then seen by medical oncology at [facility] with the recommendation of an adjuvant course of chemo immune therapy (ACTH/TCH) . She then went for a second opinion at [facility] were adjuvant chemoradiotherapy (TH) again recommended. She eventually made the decision to receive her treatment at [facility] close to home. CT chest June 07, [...] field. Patient drove all the way to [place] and then back just prior to 2020. Experienced an acute right lower back pain and right sided sciatica. Although she had similar but less severe episodes in the past, this by far was the worst she ever experienced. She was seen in [facility] emergency room and plain x-rays of [...] hyalinized tissue with rare benign ductal elements June Diagnostic mammogram US/Breast Limited Unilateral IMPRESSION: The palpable lump at the 9:00 position of the breast at 6 cm from the nipple corresponds to a 8 mm x 15 mm x 6 mm echogenic nodule most likely representing a lipoma. ASSESSMENT CATEGORY: BIRADS Category 2: Benig (more content not included)... Normal [facility] Platelet countOrdered By: Alexx Lopez on 09-21-2024 Platelets (Bld) [#/Vol] 303 10*3/uL 150-450 [facility] Potassium measurementOrdered By: Verónica Lopez on 09-21-2024 Potassium [Moles/Vol] 3.4 mmol/L Low 3.5-5.1 [facility] RBC Auto (Bld) [#/Vol]Ordere d By: Verónica Lopez on 09-21-2024 RBC (Bld) [#/Vol] 4.78 10*6/uL 4.2-5.4 [facility] Serum anion gap measurementO rdered By: Verónica Lopez on 09-21-2024 Anion gap [Moles/Vol] 6 mmol/L 5-15 [facility] Serum globulin measurementOr dered By: Verónica Lopez on 09-21-2024 Globulin (S) [Mass/Vol] 3.1 g/dL 2.2-4.2 [facility] Serum or plasma alanine torres otransferase (ALT) measurementOrdered By: Verónica Lopez on 09-21-2024 ALT [Catalytic activity/Vol] 23 U/L 13-56 [facility] Serum or plasma albumin giovany urement (mass/volume)Ordered By: Verónica Lopez on 09-21-2024 Albumin [Mass/Vol] 3.9 g/dL 3.2-5.0 [facility] Serum or plasma alkaline semaj sphatase measurementOrdered By: Verónica Lopez on 09-21-2024 ALP [Catalytic activity/Vol] 152 U/L High 45-117 [facility] Serum or plasma bone alkalin e phosphatase/total alkaline phosphatase ratio (catalyticOrdered By: Verónica Lopez on 09-21-2024 ALP Bone [Catalytic fraction] 49 % 14-68 [facility] Serum or plasma calcium giovany urement (mass/volume)Ordered By: Verónica Lopez on 09-21-2024 Calcium [Mass/Vol] 9.4 mg/dL 8.5-10.1 [facility] Serum or plasma creatinine m easurement (mass/volume)Ordered By: Verónica Lopez on 09-21-2024 Creatinine [Mass/Vol] 0.91 mg/dL 0.55-1.02 [facility] Comment on above: The validity of the calculated GFR & GFRAA in patients over 70 years has not been determined. Clinical correlation is essential. Serum or plasma intestinal a lkaline phosphatase/total alkaline phosphatase ratio (catOrdered By: Verónica Lopez on 09-21-2024 ALP Intest [Catalytic fraction] 8 % 0-18 [facility] Comment on above: Performed at: [address] [id number] Director: Aj Lopez PhD, Phone: [phone] Serum or plasma liver alkali ne phosphatase/total alkaline phosphatase ratio (catalytiOrdered By: Verónica Lopez on 09-21-2024 ALP Liver [Catalytic fraction] 43 % 18-85 [facility] Serum or plasma urea nitroge n measurement (mass/volume)Ordered By: Verónica Lopez on 09-21-2024 Urea nitrogen [Mass/Vol] 15 mg/dL 7-18 [facility] Sodium levelOrdered By: Verónica Lopez on 09-21-2024 Sodium [Moles/Vol] 140 mmol/L 136-145 [facility] Total proteinOrdered By: Erica Lopez on 09-21-2024 Protein [Mass/Vol] 7.0 g/dL 6.4-8.2 [facility] White blood cell (WBC) count Ordered By: Verónica Lopez on 09-21-2024 WBC (Bld) [#/Vol] 6.8 10*3/uL 4.4-11.0 [facility] ACTIVATED CLOTTING TIME, POC (AK,MH,MR)on 09-10-2024 Activated Clotting Time (POCT) 262 Abnormal [facility] Interpretation and review of laboratory results Abnormal [facility] Meter ID:[id number] Location:[facility] [employer], [address] [place] [address], [id number] [place] [address] POINT OF CARE [facility] ALLIED HEALTHon 09-10-2024 [facility] Normal [facility] ECHOon 09-10-2024 CONCLUSIONS: - Technically difficult exam due to suboptimal positioning and post op. - Exam indication: Re-evaluation to guide therapy in known adult CHD - The left ventricle is normal in size. Left ventricular systolic function is normal. EF = 63 5% (2D biplane) - Agitated saline study performed on clips# (-23). No obvious shunt seen. - Exam was compared with the prior echocardiographic exam performed on 08/05/2024. (BLACK). No obvious shunt seen. Trivial -1+ TR seen on today's study. * * * Final * * * [facility] Echocardiography Report: Transthoracic Echo [facility] Date of service: 09/10/2024 1:27:26 [facility] Ordering physician: VANDANA GOLDSTEIN Indication: Re-evaluation to guide therapy in known adult CHD Technologist: Kishan Grant Interpreting physician: Festus Morataya MD PATIENT: Name: MRS. BO JACOB : 1955 Age: 68 years Gender: F Height: 154.90 cm BSA: 1.81 m Weight: 76.20 kg BMI: 31.8 kg/m Heart rate 68 bpm Technically difficult exam due to suboptimal positioning and post op. Color Doppler was utilized to interrogate the cardiac valves assessed and spectral Doppler was utilized to determine the flow velocities and pressure gradients reported in this exam. MEASUREMENTS: Value Indexed Normal LV ID (diastole) 4.6 cm (2D) 2.54 cm/m LV ID (systole) 3.0 cm (2D) 1.63 cm/m IVS, leaflet tips 1.0 cm (2D) Posterior wall thickness 1.1 cm (2D) Left ventricular mass 175 g (2D) 96 g/m LV stroke volume 44 ml (2D biplane) LV end diastolic volume 70 ml (2D biplane) 38.9 ml/m 29<=EDVi<62 LV end systolic volume 26 ml (2D biplane) 14.5 ml/m Ejection Fraction 63 % (2D biplane) EF > 54 FINDINGS: LEFT VENTRICLE The left ventricle is normal in size. Left ventricular systolic function is normal. Wall Motion: All scored segments are normal. RIGHT VENTRICLE Estimated right ventricular systolic pressure is 19 mmHg consistent with normal pulmonary artery pressures. Estimated right atrial pressure is 3 mmHg based on IVC assessment. RIGHT ATRIUM Inferior Vena Cava: The inferior vena cava appears normal measuring 1.6 cm. The vessel decreases greater than 50 percent with inspiration. TRICUSPID VALVE There is trace (trace - 1+) tricuspid valve regurgitation. There is no thickening. AORTIC VALVE The aortic valve cusps are structurally normal. Tricuspid aortic valve. PULMONARY ARTERIES The pulmonary arteries are unseen or not interrogated. INTERATRIAL SEPTUM There is no evidence of intracardiac shunting as detected by agitated saline contrast with valsalva and Doppler. PERICARDIUM There is no pericardial effusion. [facility] LVEF ECHOon 09-10-2024 LV Ejection Fraction 63 % [facility] Comment on above: (2D biplane) EF > 54 An LV Ejection Fraction of > 50% is normal No Panel Informationon 09-10 [facility] OPERATIVE NOon 09-10-2024 OPERATIVE NO Normal [facility] XR CHEST 1V FRONTAL PORTon 0 09-10-2024 XR CHEST 1V FRONTAL PORT Normal [facility] XR Chest Single viewon 09-10 IMPRESSION: No acute process. Home Attendant: RODO Transcribe Date/Time: Sep 10 2024 1:25P Dictated by : KATLIN RAHMAN MD This examination was interpreted and the report reviewed and electronically signed by: KATLIN RAHMAN MD on Sep 10 2024 1:27PM EST [email or web address] * * *Final Report* * * DATE OF EXAM: Sep 10 2024 1:22PM [id number] - XR CHEST 1V FRONTAL PORT / PROCEDURE REASON: Post-operative/post-procedu re assessment * * * * Physician Interpretation * * * * EXAMINATION: CHEST RADIOGRAPH (PORTABLE SINGLE VIEW AP) Exam Date/Time: 09/10/2024 1:22 PM CLINICAL HISTORY: Post-operative/post-procedu re assessment MQ: XCPR_5 Comparison: 04/15/2021 RESULT: Lines, tubes, and devices: Atrial septal occlusive device. Lungs and pleura: The lungs are clear of active infiltrates. No visible pneumothorax or pleural effusion. Cardiomediastinal silhouette: Stable cardiomediastinal silhouette. Other: . [facility] Provider, [facility] - 09/10/2024 * * *Final Report* * * DATE OF EXAM: Sep 10 2024 1:22PM [id number] - XR CHEST 1V FRONTAL PORT / PROCEDURE REASON: Post-operative/post-procedu re assessment * * * * Physician Interpretation * * * * EXAMINATION: CHEST RADIOGRAPH (PORTABLE SINGLE VIEW AP) Exam Date/Time: 09/10/2024 1:22 PM CLINICAL HISTORY: Post-operative/post-procedu re assessment MQ: XCPR_5 Comparison: 04/15/2021 RESULT: Lines, tubes, and devices: Atrial septal occlusive device. Lungs and pleura: The lungs are clear of active infiltrates. No visible pneumothorax or pleural effusion. Cardiomediastinal silhouette: Stable cardiomediastinal silhouette. Other: . IMPRESSION IMPRESSION: No acute process. Home Attendant: RODO Transcribe Date/Time: Sep 10 2024 1:25P Dictated by : KATLIN RAHMAN MD This examination was interpreted and the report reviewed and electronically signed by: KATLIN RAHMAN MD on Sep 10 2024 1:27PM EST [facility] Radiology Study observation (narrative) [facility] XR Chest Single viewOrdered By: Ccf Provider on 09-10-2024 [facility] Basic metabolic 2000 panelon 09-08-2024 Anion gap [Moles/Vol] 11 mmol/L Normal 8-15 [facility] Comment on above: Order Comment: Speci men Type: BLOOD SPECIMENOrdering Facility: [facility] Address: [address] [place] [address] Performed By: #### 2 4321-2 ####[facility] LABCLIA [id number] [place] [address] [place] Calcium [Mass/Vol] 10.2 mg/dL Normal 8.5-10.2 [facility] Comment on above: Order Comment: Speci men Type: BLOOD SPECIMENOrdering Facility: [facility] Address: [address] [place] [address] Performed By: #### 2 4321-2 ####[facility] LABCLIA [id number] [place] [address] [place] Chloride [Moles/Vol] 100 mmol/L Normal 98-107 [facility] Comment on above: Order Comment: Speci men Type: BLOOD SPECIMENOrdering Facility: [facility] Address: [address] [place] [address] Performed By: #### 2 4321-2 ####[facility] LABCLIA [id number] [place] [address] [place] CO2 [Moles/Vol] 29 mmol/L Normal 22-30 [facility] Comment on above: Order Comment: Speci men Type: BLOOD SPECIMENOrdering Facility: [facility] Address: [address] [place] [address] Performed By: #### 2 4321-2 ####[facility] LABCLIA [id number] [place] [address] [place] Creatinine [Mass/Vol] 0.95 mg/dL Normal 0.58-0.96 [facility] Comment on above: Order Comment: Prince omer Type: BLOOD SPECIMENOrdering Facility: [facility] Address: [address] [place] [address] Performed By: #### 2 4321-2 ####[facility] LABIA [id number] [place] [address] [facility] Creatinine and Glomerular filtration rate.predicted panel (S/P/Bld) 65 mL/min/1.73m??? Normal >=60 [facility] Comment on above: Order Comment: Prince omer Type: BLOOD SPECIMENOrdering Facility: [facility] Address: [address] [place] [address] Result Comment: Conchita mated Glomerular Filtration Rate [...] reflect actual GFR. Performed By: #### 2 4321-2 ####[facility] LABIA [id number] [place] [address] [place] Glucose [Mass/Vol] 88 mg/dL Normal 74-99 [facility] Comment on above: Order Comment: Prince omer Type: BLOOD SPECIMENOrdering Facility: [facility] Address: [address] [place] [address] Result Comment: The [place] Diabetes Association (ADA) provides guidance for cutoff [...] Standards of Medical Care in Diabetes 2016, [place] Diabetes Association. Diabetes Care. 2016.39(Suppl 1). Performed By: #### 2 4321-2 ####[facility] LABCLIA [id number] [place] [address] [place] Potassium [Moles/Vol] 4.6 mmol/L Normal 3.7-5.1 [facility] Comment on above: Order Comment: Prince omer Type: BLOOD SPECIMENOrdering Facility: [facility] Address: [address] [place] [address] Performed By: #### 2 4321-2 ####[facility] LABCLIA [id number] [place] [address] [place] Sodium [Moles/Vol] 140 mmol/L Normal 136-144 [facility] Comment on above: Order Comment: Prince omer Type: BLOOD SPECIMENOrdering Facility: [facility] Address: [address] [place] [address] Performed By: #### 2 4321-2 ####[facility] LABCLIA [id number] [place] [address] [place] Urea nitrogen [Mass/Vol] 24 mg/dL High - [facility] Comment on above: Order Comment: Prince omer Type: BLOOD SPECIMENOrdering Facility: [facility] Address: [address] [place] [address] Performed By: #### 2 4321-2 ####[facility] LABCLIA [id number] [place] [address] [place] CBC panel Auto (Bld)on 09-08 Erythrocyte distribution width (RBC) [Ratio] 12.1 % Normal 11.5-15.0 [facility] Comment on above: Order Comment: Prince omer Type: BLOOD SPECIMENOrdering Facility: [facility] Address: [address] [place] [address] Performed By: #### 5 8410-2 ####[facility] LABCLIA [id number] [place] [address] [place] [facility] Hematocrit (Bld) [Volume fraction] 49.7 % High 36.0-46.0 [facility] Comment on above: Order Comment: Speci men Type: BLOOD SPECIMENOrdering Facility: [facility] Address: [address] [place] [address] Performed By: #### 5 8410-2 ####[facility] LABCLIA [id number] [place] [address] [facility] Hemoglobin (Bld) [Mass/Vol] 16.2 g/dL High 11.5-15.5 [facility] Comment on above: Order Comment: Speci men Type: BLOOD SPECIMENOrdering Facility: [facility] Address: [address] [place] [address] Performed By: #### 5 8410-2 ####[facility] LABCLIA [id number] [place] [address] [place] MCH (RBC) [Entitic mass] 30.6 pg Normal 26.0-34.0 [facility] Comment on above: Order Comment: Speci men Type: BLOOD SPECIMENOrdering Facility: [facility] Address: [address] [place] [address] Performed By: #### 5 8410-2 ####[facility] LABCLIA [id number] [place] [address] [place] MCHC (RBC) [Mass/Vol] 32.6 g/dL Normal 30.5-36.0 [facility] Comment on above: Order Comment: Speci men Type: BLOOD SPECIMENOrdering Facility: [facility] Address: [address] [place] [address] Performed By: #### 5 8410-2 ####[facility] LABCLIA [id number] [place] [address] [place] MCV (RBC) [Entitic vol] 93.8 fL Normal 80.0-100.0 [facility] Comment on above: Order Comment: Speci men Type: BLOOD SPECIMENOrdering Facility: [facility] Address: [address] [place] [address] Performed By: #### 5 8410-2 ####[facility] LABCLIA [id number] [facility] [place] [address] [place] Platelet mean volume (Bld) [Entitic vol] 9.5 fL Normal 9.0-12.7 [facility] Comment on above: Order Comment: Speci men Type: BLOOD SPECIMENOrdering Facility: [facility] Address: [address] [place] [address] Performed By: #### 5 8410-2 ####[facility] LABCLIA [id number] [place] [address] [place] Platelets (Bld) [#/Vol] 323 10*3/uL Normal 150-400 [facility] Comment on above: Order Comment: Speci men Type: BLOOD SPECIMENOrdering Facility: [facility] Address: [address] [place] [address] Performed By: #### 5 8410-2 ####[facility] LABCLIA [id number] [place] [address] [place] RBC (Bld) [#/Vol] 5.30 10*6/uL High 3.90-5.20 [facility] Comment on above: Order Comment: Speci men Type: BLOOD SPECIMENOrdering Facility: [facility] Address: [address] [place] [address] Performed By: #### 5 8410-2 ####[facility] LABCLIA [id number] [facility] [place] [address] [place] WBC (Bld) [#/Vol] 8.14 10*3/uL Normal 3.70-11.00 [facility] Comment on above: Order Comment: Speci men Type: BLOOD SPECIMENOrdering Facility: [facility] Address: [address] [place] [address] Performed By: #### 5 8410-2 ####[facility] LABCLIA [id number] [place] [address] [facility] Knee 4 or More Viewson 08-31 Knee 4 or More Views [facility] [address] [place] [address] Knee 4 or More Views MR#: [id number] Acct: [id number] Name: BO JACOB Rep #: [id number] : 1955 F 68 From: Hugh Hicks MD PCP: KEYA Reaves Status: DEP AMB Study: Knee 4 or More Views Date of Exam: 08/31/24 Exam# [id number] Ordering Dr: Raymond Lagos DO [id number] STUDY: X-RAY - LEFT KNEE REASON FOR EXAM: Female, 68 years old. Pain. TECHNIQUE: 4 views of the left knee. COMPARISON: Left knee radiographs dated 09/09/2023. FINDINGS: Normal visualized distal femur. Normal visualized proximal tibia and fibula. Normal proximal tibiofibular articulation. There is no demonstrated fracture. There is unchanged mild degenerative arthrosis of the medial femorotibial compartment. There is is unchanged mild degenerative arthrosis of the lateral femorotibial compartment. There is unchanged mild degenerative arthrosis of the patellofemoral articulation. There is a small joint effusion. The soft tissue structures are unremarkable. RAD/Knee 4 or More Views IMPRESSION: Unchanged mild tricompartment degenerative arthrosis. Small joint effusion. Electronically Signed: Hugh Hicks MD at 14:00 EST Reading Location ID and State: [facility] / [place] , Service support , CC: KEYA Dias; Dr. Raymond Lagos DO Home Attendant: Signed Normal [facility] Orthopedic Visit Reporton Orthopedic Visit Report [facility] [address] [place] [address] OFFICE VISIT Date of Service: 08/31/24 MR#: [id number] Acct: [id number] Name: BO JACOB Rep #: [id number] : 1955 Provider: Dr. Raymond jaimes DO Age/Sex: 68/F Location: [facility] Status: Signed Intake Vital Signs 06/17/24 15:54 08/31/24 09:07 Height 5 ft 1 in 5 ft 1 in Weight: 177 lb 6 oz BMI 33.5 Intake Visit Reasons: LEFT KNEE Chief Complaint: Left Knee Pain Accompanied by: Self Is patient in pain?: Yes Pain scale (1-10): 2 Allergies acetaminophen (From [place]) Allergy (Intermediate, Verified 08/31/24 09:08) Rash adhesive tape Allergy (Intermediate, Verified 08/31/24 09:08) Hives hydrocodone (From [place]) Allergy (Intermediate, Verified 08/31/24 09:08) Rash oxycodone Allergy (Intermediate, Verified 08/31/24 09:08) Rash anastrozole Adverse Reaction (Severe, Verified 08/31/24 09:08) joint pain, anxiety, hot flashes Medications ???Medication ???Instructions ???Recorded ???Confirmed ???Type multivitamin-ferrous 1 ea PO DAILY vitamin 06/13/20 08/31/24 History fumarate-folic acid 18 mg-400 mcg tablet vitamin E 670 mg (1,000 unit) 1,000 unit PO DAILY radiation 03/02/21 08/31/24 Rx capsule fibrosis #30 caps aspirin 81 mg tablet,delayed 81 mg PO DAILY 07/18/21 08/31/24 History release (Corky Low Dose Aspirin) algeaCal 2 cap PO TID 11/18/23 08/31/24 History cholecalciferol (vitamin D3) 125 250 mcg PO DAILY 11/18/23 08/31/24 History mcg (5,000 unit) tablet (Vitamin D3) mecobalamin (vitamin B12) 1,000 1,000 mcg sublingual DAILY 11/18/23 08/31/24 History mcg disintegrating tablet,sublingual zinc 50 mg tablet 50 mg PO DAILY 11/18/23 08/31/24 History clopidogrel 75 mg tablet (Plavix) 75 mg PO QDAY 04/29/24 08/31/24 History hydroxyzine HCl 10 mg tablet 10 mg PO TID-QID PRN anxiety #90 04/29/24 08/31/24 Rx tabs hydrochlorothiazide 25 mg tablet 25 mg PO DAILY #90 TABLETS 07/13/24 08/31/24 Rx exemestane 25 mg tablet 25 mg PO DAILY #90 TABLETS 08/26/24 08/31/24 Rx Have you fallen in the past year?: No PFSH Medical History (Updated 08/31/24 @ 09:10 by Anastacia Meneses) History of transesophageal echocardiography (BLACK) PFO (patent foramen ovale) Wears glasses Marijuana [...] 1-2 times per week duration: 15-30 minutes/day 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 Raymond Lagos, DO 08/31/24 0800. Part of today???s visit was documented by Anastacia Martell ATC, acting as scribe. BO JACOB is a 68 year old F here today for left knee. To recall patient was last seen 12/16/2023 which was 2 weeks after her knee arthroscopy (dos 12/03/23 )s/p Left knee arthroscopy partial medial part (more content not included)... Normal [facility] 08-17-2024 CNPN Normal [facility] ANES POSTPROC EVALon 024 ANES POSTPROC EVAL Normal [facility] ANES PRE-OPon 08-05-2024 ANES PRE-OP Normal [facility] BRIEF OP NOTon 08-05-2024 BRIEF OP NOT Normal [facility] ECHO TRANSESOPHAGEALon 08-05 ECHO TRANSESOPHAGEAL Normal [facility] 07-28-2024 CNPN Normal [facility] CNOVon 07-27-2024 CNOV Normal [facility] 07-22-2024 CNPN Normal [facility] BRIEF OP NOTon 07-20-2024 BRIEF OP NOT Normal [facility] 07-08-2024 CNPN Normal [facility] Surgery Visit Reporton 07-03 Surgery Visit Report [facility] [address] [place] [address] OFFICE VISIT Date of Service: 07/03/24 MR#: [id number] Acct: [id number] Name: BO JACOB Rep #: [id number] : 1955 Provider: Dr. Dia shepherd MD Age/Sex: 68/F Location: [facility] Status: Signed Intake Vital Signs 06/17/24 15:54 Height 5 ft 1 in Weight: 175 lb 5 oz BMI 33.1 BP 124/82 H Blood Pressure Location Lt brachial Position Sitting Respiration 16 Pulse 82 Pulse Source Monitor Temp 99.0 F Pulse Oximetry (%) 100 Oxygen Delivery Method room air Intake Visit Reasons: LEFT BREAST MASS Chief Complaint: left breast mass Is patient in pain?: No Allergies acetaminophen (From [place]) Allergy (Intermediate, Verified 07/03/24 14:22) Rash adhesive tape Allergy (Intermediate, Verified 07/03/24 14:22) Hives hydrocodone (From [place]) Allergy (Intermediate, Verified 07/03/24 14:22) Rash oxycodone Allergy (Intermediate, Verified 07/03/24 14:22) Rash anastrozole Adverse Reaction (Severe, Verified 07/03/24 14:22) joint pain, anxiety, hot flashes Medications ???Medication ???Instructions ???Recorded ???Confirmed ???Type multivitamin-ferrous 1 ea PO DAILY vitamin 06/13/20 07/03/24 History fumarate-folic acid 18 mg-400 mcg tablet vitamin E 670 mg (1,000 unit) 1,000 unit PO DAILY radiation 03/02/21 07/03/24 Rx capsule fibrosis #30 caps aspirin 81 mg tablet,delayed 81 mg PO DAILY 07/18/21 07/03/24 History release (Corky Low Dose Aspirin) algeaCal 2 cap PO TID 11/18/23 07/03/24 History cholecalciferol (vitamin D3) 125 250 mcg PO DAILY 11/18/23 07/03/24 History mcg (5,000 unit) tablet (Vitamin D3) mecobalamin (vitamin B12) 1,000 1,000 mcg sublingual DAILY 11/18/23 07/03/24 History mcg disintegrating tablet,sublingual zinc 50 mg tablet 50 mg PO DAILY 11/18/23 07/03/24 History clopidogrel 75 mg tablet (Plavix) 75 mg PO QDAY 04/29/24 07/03/24 History hydroxyzine HCl 10 mg tablet 10 mg PO TID-QID PRN anxiety #90 04/29/24 07/03/24 Rx tabs hydrochlorothiazide 25 mg tablet 12.5 mg PO DAILY PRN 05/08/24 07/03/24 History exemestane 25 mg tablet 25 mg PO DAILY #90 TABLETS 05/18/24 07/03/24 Rx Have you fallen in the past year?: No Subjective Details: 68-year-old female presents due to abnormal breast ultrasound. Patient states that she noticed a breast lump about 3 weeks ago and did see her oncologist and had MRI and ultrasound done. then ultrasound was ordered due to the history of feeling a lump. Patient had a stable unilateral diagnostic mammogram. Ultrasound was ordered which showed a palpable lump at 9 o'clock position of the breast at 6 cm from the nipple corresponds to the 8 mm x 50 mm x 6 mm echogenic nodule most likely representing a lipoma. Given a BI-RADS 2. Patient denies trauma to her breast but does state that since she has been on the Plavix due to her stroke and PFO she has had bruising just from scratching. Objective Details: Left breast 9:00 6 cm from nipple more fullness in this area not obvious discrete nodule, bedside ultrasound does show the echogenic nodule but is less regular with margins on bedside ultrasound patient did also have resolving ecchymosis to her left breast at about 4:00 which also had an echogenic nodule seen. Coding Level of Care Code Off vis,est,level 3 Diagnoses Left breast lump N63.20 [facility] Medical History PFO (patent foramen ovale) Wears [...] removal of cyst Previous section Family History ... Normal [facility] CNPNon 06-30-2024 CNPN Normal [facility] CNPNon 06-26-2024 CNPN Normal [facility] CNOVon 06-24-2024 CNOV Normal [facility] Breast Limited Unilateralon 06-19-2024 Breast Limited Unilateral [facility] Services [address] [place] [address] Breast Limited Unilateral MR#: [id number] Acct: [id number] Name: BO JACOB Rep #: [id number] : 1955 F 68 From: Chandu avery MD PCP: KEYA Reaves Status: [facility] Study: Breast Limited Unilateral Date of Exam: Exam# [id number] Ordering Dr: Verónica Lopez NP DRAWING TENDER -C [id number] STUDY: ULTRASOUND BREAST - LEFT REASON FOR EXAM: Female, 68 years old. Palpable lump at the 9:00 position of the breasts. TECHNIQUE: Axial and longitudinal images of the LEFT breast were performed with a high resolution ultrasound transducer. # OF IMAGES: 12 COMPARISON: Comparison is made with prior mammogram done earlier today as well as prior mammogram of the left breast dated February 26, 2023. FINDINGS: LEFT Breast: The palpable lump corresponds to a 8 mm x 15 mm x 6 mm echogenic nodule just deep to the skin surface. This most likely represents a lipoma. This is located at [...] Signed: Chandu Dean MD at 13:04 EDT Reading Location ID and State: [facility] / [place] , Service support , CC: KEYA Dias; KEYA Lopez Home Attendant: Signed Normal [facility] DIAG MAMM W/CAD, UNILATon DIAG MAMM W/CAD, [facility] Imaging Services [address] [place], [place] [address] DIAG MAMM W/CAD, UNILAT MR#: [id number] Acct: [id number] Name: BO JACOB Rep #: [id number] : 1955 F 68 From: Chandu aveyr MD PCP: KEYA Reaves Status: REG CL Study: DIAG MAMM W/CAD, UNILAT Date of Exam: 06/19/24 Exam# [id number] Ordering Dr: Verónica Lopez NP, NP [id number] MAMMOGRAPHY - UNILATERAL DIAGNOSTIC: LEFT BREAST REASON [...] Signed: Chandu Dean MD at 10:15 EDT Reading Location ID and State: [facility] / [place] , Service support , CC: KEYA Dias; KEYA Lopez Home Attendant: Signed Normal [facility] Oncology Visit Reporton 05-21 Oncology Visit Report [facility] [address] 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 After skipping 2019 screening mammographies she felt a painless lump in the right breast and a diagnostic mammogram followed by a biopsy confirmed malignancy. April 28, 2020 she underwent a partial mastectomy with sentinel lymph node biopsy. Her work-up and surgery were done at [facility], she was then seen by medical oncology at [facility] with the recommendation of an adjuvant course of chemo immune therapy (ACTH/TCH) . She then went for a second opinion at [facility] were adjuvant chemoradiotherapy (TH) again recommended. She eventually made the decision to receive her treatment at [facility] close to home. CT chest June 07, [...] field. Patient drove all the way to [place] and then back just prior to 2020. Experienced an acute right lower back pain and right sided sciatica. Although she had similar but less severe episodes in the past, this by far was the worst she ever experienced. She was seen in [facility] emergency room and plain x-rays of [...] with COV (more content not included)... Normal [facility] CNPNon 06-10-2024 CNPN Normal [facility] CNOVon 06-09-2024 CNOV Normal [facility] Cardiology Visit Reporton Cardiology Visit Report [facility] [address] [place] [address] OFFICE VISIT Date of Service: 05/08/24 MR#: [id number] Acct: [id number] Name: BO JACOB Rep #: [id number] : 1955 Provider: KIRILL Turcios Age/Sex: 68/F Location: [facility] [place] [facility] Status: Signed [facility] History of Present Illness Details: Gisselle Jacob 68 year-old lady with a history of [...] acute ischemic stroke. She was admitted to [facility] with left-sided weakness and was found [...] she has an appointment with neurology at [facility]. She also tells me that she [...] Oximetry (%) 98 Intake Visit Reasons: S/P [facility] 04/23 Manager [employer] Required: No Is patient in pain?: No Allergies acetaminophen (From [place]) Allergy (Intermediate, Verified 05/08/24 09:44) Rash adhesive tape Allergy (Intermediate, Verified 05/08/24 09:44) Hives hydrocodone (From [place]) Allergy (Intermediate, Verified 05/08/24 09:44) Rash oxycodone [...] of ect (more content not included)... Normal [facility] CNPNon 04-29-2024 CNPN Normal [facility] Basic metabolic 2000 panelon 04-23-2024 Anion gap [Moles/Vol] 9 mmol/L Normal 8-15 [facility] Comment on above: Order Comment: Speci men Type: BLOOD SPECIMENOrdering Facility: [facility] Address: [address] [place] [address] Performed By: #### 2 4320-09, ####[facility] LABORATORYCLIA [id number] [place] [address] [place] Calcium [Mass/Vol] 9.5 mg/dL Normal 8.5-10.2 [facility] Comment on above: Order Comment: Speci men Type: BLOOD SPECIMENOrdering Facility: [facility] Address: [address] [place] [address] Performed By: #### 2 4320-09, ####[facility] LABORATORYCLIA [id number] [place] [address] [place] Chloride [Moles/Vol] 104 mmol/L Normal 98-107 [facility] Comment on above: Order Comment: Speci men Type: BLOOD SPECIMENOrdering Facility: [facility] Address: [address] [place] [address] Performed By: #### 2 4320-09, ####[facility] LABORATORYCLIA [id number] STATES OF [facility] CO2 [Moles/Vol] 25 mmol/L Normal 22-30 [facility] Comment on above: Order Comment: Speci men Type: BLOOD SPECIMENOrdering Facility: [facility] Address: [address] [place] [address] Performed By: #### 2 4321-2, ####[facility] LABORATORYCLIA [id number] [address] [place] [facility] Creatinine [Mass/Vol] 0.87 mg/dL Normal 0.58-0.96 [facility] Comment on above: Order Comment: Speci men Type: BLOOD SPECIMENOrdering Facility: [facility] Address: [address] [place] [address] Performed By: #### 2 4321-2, ####[facility] LABORATORYCLIA [id number] [address] Creatinine and Glomerular filtration rate.predicted panel (S/P/Bld) 72 mL/min/1.73m??? Normal >=60 [facility] Comment on above: Order Comment: Speci men Type: BLOOD SPECIMENOrdering Facility: [facility] Address: [address] [place] [address] Result Comment: Conchita mated Glomerular Filtration Rate [...] reflect actual GFR. Performed By: #### 2 4321-2, ####[facility] LABORATORYCLIA [id number] [address] STATES [place] [facility] Glucose [Mass/Vol] 91 mg/dL Normal 74-99 [facility] Comment on above: Order Comment: Speci men Type: BLOOD SPECIMENOrdering Facility: [facility] Address: [address] [place] [address] Result Comment: The [place] Diabetes [employer] (ADA) provides guidance for cutoff [...] Standards of Medical Care in Diabetes 2016, [place] [employer]. Diabetes Care. 2016.39(Suppl 1). Performed By: #### 2 4320-09, ####[facility] LABORATORYCLIA [id number] [place] [address] [place] Potassium [Moles/Vol] Normal [facility] Comment on above: Order Comment: Prince omer Type: BLOOD SPECIMENOrdering Facility: [facility] Address: [address] [place] [address] Result Comment: Unab le to assay due to interference from hemolysis. Suggest reorder as clinically indicated. Performed By: #### 2 4320-09, ####[facility] LABORATORYCLIA [id number] [place] [address] [place] Sodium [Moles/Vol] 138 mmol/L Normal 136-144 [facility] Comment on above: Order Comment: Prince omer Type: BLOOD SPECIMENOrdering Facility: [facility] Address: [address] [place] [address] Performed By: #### 2 4320-09, ####[facility] LABORATORYCLIA [id number] [place] [address] [place] Urea nitrogen [Mass/Vol] 17 mg/dL Normal 7-21 [facility] Comment on above: Order Comment: Prince omer Type: BLOOD SPECIMENOrdering Facility: [facility] Address: [address] [place] [address] Performed By: #### 2 4320-09, ####[facility] LABORATORYCLIA [id number] [place] [address] [place] CARDIOLIPIN IGG ABSon 2023 Cardiolipin IgG IA Qn (S) <9.0 Normal <15.0 [facility] Comment on above: Order Comment: Speci men Type: BLOOD SPECIMENOrdering Facility: [facility] Address: [address] [place] [address] Result Comment: <15 GPL [id number] GPL Indeterminate>20 GPL PositiveThe following results were obtained with the [employer] QUANTA Lite BRIELLE IgG III JHONNY. Cardiolipin IgG values obtained with the different manufacturers' assay methods may not be used interchangeably. The magnitude of the reported IgG levels cannot be correlated to an endpoint titer. Performed By: #### 5 076-5MIKEY CARDIM ####[facility] LABCLIA [id number] [address] CARDIOLIPIN IGM ABSon 2023 Cardiolipin IgM IA Qn (S) <9.0 Normal <12.5 [facility] Comment on above: Order Comment: Speci [facility] Type: BLOOD SPECIMENOrdering Facility: [facility] Address: [address] [place] [address] Result Comment: <12. 5 MPL Evwddral76.5-20 MPL Indeterminate>20 MPL PositiveThe following results were obtained with the [employer] QUANTA Lite BRIELLE IgM III JHONNY. Cardiolipin IgM values obtained with the different manufacturers' assay methods may not be used interchangeably. The magnitude of the reported IgM levels cannot be correlated to an endpoint titer.??? Performed By: #### 5 076-5MIKEY CARDIM ####[facility] LABCLIA [id number] [place] [address] [place] CASE MANAGEMon 04-23-2024 CASE MANAGEM Normal [facility] CBC panel Auto (Bld)on 04-23 Erythrocyte distribution width (RBC) [Ratio] 12.7 % Normal 11.5-15.0 [facility] Comment on above: Order Comment: Speci men Type: BLOOD SPECIMENOrdering Facility: [facility] Address: [address] [place] [address] Performed By: #### 5 8410-2 ####[facility] LABORATORYCLIA [id number] [address] Hematocrit (Bld) [Volume fraction] 46.1 % High 36.0-46.0 [facility] Comment on above: Order Comment: Speci men Type: BLOOD SPECIMENOrdering Facility: [facility] Address: [address] [place] [address] Performed By: #### 5 8410-2 ####[facility] LABORATORYCLIA [id number] [address] OF [facility] Hemoglobin (Bld) [Mass/Vol] 15.6 g/dL High 11.5-15.5 [facility] Comment on above: Order Comment: Speci men Type: BLOOD SPECIMENOrdering Facility: [facility] Address: [address] [place] [address] Performed By: #### 5 8410-2 ####[facility] LABORATORYCLIA [id number] [address] [place] [facility] MCH (RBC) [Entitic mass] 31.7 pg Normal 26.0-34.0 [facility] Comment on above: Order Comment: Speci men Type: BLOOD SPECIMENOrdering Facility: [facility] Address: [address] [place] [address] Performed By: #### 5 8410-2 ####[facility] LABORATORYCLIA [id number] [address] [place] MCHC (RBC) [Mass/Vol] 33.8 g/dL Normal 30.5-36.0 [facility] Comment on above: Order Comment: Speci men Type: BLOOD SPECIMENOrdering Facility: [facility] Address: [address] [place] [address] Performed By: #### 5 8410-2 ####[facility] LABORATORYCLIA [id number] [place] [address] [place] MCV (RBC) [Entitic vol] 93.7 fL Normal 80.0-100.0 [facility] Comment on above: Order Comment: Speci men Type: BLOOD SPECIMENOrdering Facility: [facility] Address: [address] [place] [address] Performed By: #### 5 8410-2 ####[facility] LABORATORYCLIA [id number] [place] [address] [place] Nucleated RBC (Bld) [#/Vol] 10*3/uL Normal <0.01 [facility] Comment on above: Order Comment: Speci men Type: BLOOD SPECIMENOrdering Facility: [facility] Address: [address] [place] [address] Performed By: #### 5 8410-2 ####[facility] LABORATORYCLIA [id number] [address] [place] Platelet mean volume (Bld) [Entitic vol] 9.8 fL Normal 9.0-12.7 [facility] Comment on above: Order Comment: Speci men Type: BLOOD SPECIMENOrdering Facility: [facility] Address: [address] [place] [address] Performed By: #### 5 8410-2 ####[facility] LABORATORYCLIA [id number] [address] [place] Platelets (Bld) [#/Vol] 307 10*3/uL Normal 150-400 [facility] Comment on above: Order Comment: Speci men Type: BLOOD SPECIMENOrdering Facility: [facility] Address: [address] [place] [address] Performed By: #### 5 8410-2 ####[facility] LABORATORYCLIA [id number] [place] [address] [place] RBC (Bld) [#/Vol] 4.92 10*6/uL Normal 3.90-5.20 [facility] Comment on above: Order Comment: Speci men Type: BLOOD SPECIMENOrdering Facility: [facility] Address: [address] [place] [address] Performed By: #### 5 8410-2 ####[facility] LABORATORYCLIA [id number] [place] [address] [place] WBC (Bld) [#/Vol] 7.84 10*3/uL Normal 3.70-11.00 [facility] Comment on above: Order Comment: Speci men Type: BLOOD SPECIMENOrdering Facility: [facility] Address: [address] [place] [address] Performed By: #### 5 8410-2 ####[facility] LABORATORYCLIA [id number] [place] [id number] [place] CNDSon 04-23-2024 CNDS Normal [facility] COAG CORE PANEL BLDon 2023 aPTT Coag (PPP) [Time] 26.5 s Normal 23.0-32.4 [facility] Comment on above: Order Comment: Speci men Type: BLOOD SPECIMENOrdering Facility: [facility] Address: [address] [place] [address] Performed By: #### C ORPNL ####[facility] LABCLIA [id number] [place] [address] [place] Fibrinogen Coag (PPP) [Mass/Vol] 456 mg/dL High 200-400 [facility] Comment on above: Order Comment: Speci men Type: BLOOD SPECIMENOrdering Facility: [facility] Address: [address] [place] [address] Result Comment: Izzy en Plasma AliquotSample checked for clot.Result rechecked. Performed By: #### C ORPNL ####[facility] LABCLIA [id number] [place] [address] [place] INR Coag (PPP) [Relative time] 1.0 {INR} Normal 0.9-1.3 [facility] Comment on above: Order Comment: Speci men Type: BLOOD SPECIMENOrdering Facility: [facility] Address: [address] [place] [address] Result Comment: [place] min K Antagonist (VKA) Therapeutic Range: INR 2 to 3 (Target INR of 2.5)Note: For patients treated with VKA drugs, such as warfarin, the [employer] 2012 Guideline recommends [...] of 3).Tommy GH, et al. Chest 2012, 141:7S-47SNishimura RA, et al. [facility] 2017, 70: 252-289 Performed By: #### C ORPNL ####[facility] LABCLIA [id number] [place] [address] [place] PT Coag (PPP) [Time] 10.4 s Normal 9.7-13.0 [facility] Comment on above: Order Comment: Speci men Type: BLOOD SPECIMENOrdering Facility: [facility] Address: [address] [place] [address] Performed By: #### C ORPNL ####[facility] LABIA [id number] [place] [address] [place] CRP SerPl-mCncon 04-23-2024 CRP [Mass/Vol] 0.3 mg/dL Normal <0.9 [facility] Comment on above: Order Comment: Speci men Type: BLOOD SPECIMENOrdering Facility: [facility] Address: [address] [place] [address] Performed By: #### 1 988-5 ####[facility] LABCLIA [id number] [place] [address] [place] Cardiolipin IgA Ser IA-aCnco n 04-23-2024 Cardiolipin IgA IA Qn (S) <9.0 Normal <12.0 [facility] Comment on above: Order Comment: Speci peter Type: BLOOD SPECIMENOrdering Facility: [facility] Address: [address] [place] [address] Result Comment: <12 APL [id number] APL Indeterminate>20 APL PositiveThe following results were obtained with the [employer]Q QUANTA Lite BRIELLE IgA III JHONNY. Cardiolipin IgA values obtained with the different manufacturers' assay methods may not be used interchangeably. The magnitude of the reported IgA levels cannot be correlated to an endpoint titer. Performed By: #### 5 076-5, SIENA JENSEN ####[facility] LABIA [id number] [place] HYPERCOAG PANELon 04-23-2024 Activated protein C resistance Coag (PPP) [Time ratio] 2.37 Ratio Normal >1.96 [facility] Comment on above: Order Comment: Speci peter Type: BLOOD SPECIMENOrdering Facility: [facility] Address: [address] [place] [address] Result Comment: The specimen was treated with ANTI-XA neutralizing reagents to remove heparin, low molecular weight heparin, and DOAC activity from the plasma. Performed By: #### H COAG ####[facility] LABCLIA [id number] [address] [place] ANTI XA HZ + DOAC <0.10 Normal <0.10 [facility] Comment on above: Order Comment: Speci [facility] Type: BLOOD SPECIMENOrdering Facility: [facility] Address: [address] [place] [address] Performed By: #### H COAG ####[facility] LABIA [id number] [place] [address] [place] Antithrombin actual/normal Chromogenic method (PPP) [Rel catalytic activity/Vol] 134 % Normal 84-138 [facility] Comment on above: Order Comment: Speci peter Type: BLOOD SPECIMENOrdering Facility: [facility] Address: [address] [place] [address] Performed By: #### H COAG ####[facility] LABPRO[facility] [id number] [place] [address] [place] aPTT Coag (Bld) [Time] 26.6 s Normal 24.0-35.1 [facility] Comment on above: Order Comment: Speci men Type: BLOOD SPECIMENOrdering Facility: [facility] Address: [address] [place] [address] Performed By: #### H COAG ####[facility] [id number] [place] [address] [place] APTT SCRN HZ + DOAC 26.2 Normal 24.0-35.1 [facility] Comment on above: Order Comment: Speci men Type: BLOOD SPECIMENOrdering Facility: [facility] Address: [address] [place] [address] Performed By: #### H COAG ####[facility] [id number] [place] [address] [place] aPTT W excess hexagonal phase phospholipid Coag (PPP) [Time] 40.7 seconds Normal 34.0-51.8 [facility] Comment on above: Order Comment: Speci men Type: BLOOD SPECIMENOrdering Facility: [facility] Address: [address] [place] [address] Result Comment: The specimen was treated with ANTI-XA neutralizing reagents to remove heparin, low molecular weight heparin, and DOAC activity from the plasma. Performed By: #### H COAG ####[facility] [id number] [place] [address] [place] Coagulation factor VIII activity actual/normal Coag (PPP) [Relative time] 136 % Normal 50-173 [facility] Comment on above: Order Comment: Speci men Type: BLOOD SPECIMENOrdering Facility: [facility] Address: [address] [place] [address] Result Comment: The specimen was treated with ANTI-XA neutralizing reagents to remove heparin, low molecular weight heparin, and DOAC activity from the plasma. Performed By: #### H COAG ####[facility] LABIA [id number] [place] [address] [place] Coagulation factor X activated act Coag Qn (PPP) 0.10 High <0.10 [facility] Comment on above: Order Comment: Prince omer Type: BLOOD SPECIMENOrdering Facility: [facility] Address: [address] [place] [address] Result Comment: This test was developed and its performance characteristics determined by [facility] [place] ([facility]). It has not been cleared or approved by the FDA. -[facility] is regulated under CLIA as qualified to perform high-complexity testing. This test is used for clinical purposes. It should not be regarded as investigational or for research. Performed By: #### H COAG ####[facility] [id number] [place] [address] [place] Delta dRVVT Coag (PPP) [Time diff] 0.6 delta seconds Normal <7.1 [facility] Comment on above: Order Comment: Prince omer Type: BLOOD SPECIMENOrdering Facility: [facility] Address: [address] [place] [address] Result Comment: The specimen was treated with ANTI-XA neutralizing reagents to remove heparin, low molecular weight heparin, and DOAC activity from the plasma. Performed By: #### H COAG ####[facility] [id number] [place] [address] [place] dRVVT W excess hexagonal phase phospholipid actual/normal Coag (PPP) [Relative time] 40.0 seconds Normal 34.2-47.9 [facility] Comment on above: Order Comment: Prince omer Type: BLOOD SPECIMENOrdering Facility: [facility] Address: [address] [place] [address] Result Comment: The specimen was treated with ANTI-XA neutralizing reagents to remove heparin, low molecular weight heparin, and DOAC activity from the plasma. Performed By: #### H COAG ####[facility] LABIA [id number] [address] [place] Protein C actual/normal Coag (PPP) [Relative time] 132 % Normal 76-147 [facility] Comment on above: Order Comment: Speci men Type: BLOOD SPECIMENOrdering Facility: [facility] Address: [address] [place] [address] Performed By: #### H COAG ####[facility] LABIA [id number] [place] [address] [place] Protein S actual/normal Coag (PPP) [Relative time] 105 % Normal 59-152 [facility] Comment on above: Order Comment: Speci men Type: BLOOD SPECIMENOrdering Facility: [facility] Address: [address] [place] [address] Result Comment: The specimen was treated with ANTI-XA neutralizing reagents to remove heparin, low molecular weight heparin, and DOAC activity from the plasma. Performed By: #### H COAG ####[facility] LABIA [id number] [address] [place] Thrombin time Coag (PPP) [Time] <16.8 Normal <18.6 [facility] Comment on above: Order Comment: Speci men Type: BLOOD SPECIMENOrdering Facility: [facility] Address: [address] [place] [address] Performed By: #### H COAG ####[facility] LABIA [id number] [address] [place] THROMBIN TIME HZ + DOAC 19.4 High <18.6 [facility] Comment on above: Order Comment: Speci men Type: BLOOD SPECIMENOrdering Facility: [facility] Address: [address] [place] [address] Performed By: #### H COAG ####[facility] LABIA [id number] [address] [place] [address] [place] Magnesium SerPl-mCncon 04-23 Magnesium [Mass/Vol] 2.2 mg/dL Normal 1.7-2.3 [facility] Comment on above: Order Comment: Speci men Type: BLOOD SPECIMENOrdering Facility: [facility] Address: [address] [place] [address] Performed By: #### 2 4321-2, 35308-7 ####[facility] LABORATORYCLIA [id number] [place] [address] [place] NURSING PROGon 04-23-2024 NURSING PROG Normal [facility] PROTHROMBIN GENE PCRon 04-23 PROTHROMBIN GENE MUTATION Normal [facility] Comment on above: Order Comment: Speci men Type: BLOOD SPECIMENOrdering Facility: [facility] Address: [address] [place] [address] Result Comment: Prot hrombin Gene MutationLaboratory Accession Number: [id number]:NORMALInterpretation:The DNA sample is negative for the c.*97G>A variant (legacy ypqv99972P>A) in the 3' untranslated region of the Factor II (F2) gene.This result is not associated with an increased risk of thromboembolicdisease. Thromboembolic disease is a multifactorial disorder and othercauses are not excluded by this result.Methodology:Isolated Genomic DNA from the patient's blood specimen is evaluatedfor the c*97G>A (g.34251579) variant of the F2 gene [RefSeqNM_[id number];GRCh38/hg38] by multiplex polymerase chain reaction(PCR) followed by melting curve analysis.Limitations:This assay is designed to detect the c.*97G>A (10325D>A) variant inthe F2 gene. Uncommon variants or single nucleotide polymorphisms mayaffect binding of probes and may rarely result in false negative,false positive or indeterminate results. This assay does not detectother disease-associated rare variants in F2 or other causes ofthromboembolic disease.Disclaimer:This test was developed and its performance characteristics determinedby [facility]'s [facility] [place] ([facility]). It has not been cleared or approved bythe FDA. [facility] is regulated under CLIA as certified to perform high-complexity testing. This test is used for clinical purposes. It shouldnot be regarded as investigational or for research.Testing and interpretation performed at [facility], [address] [place] [address]. CLIA Number: [id number]:1) Inheritied Thrombophilias in . ACOG Practice Bulletin. No.197. [employer]. ObseteGynecol 2018;132:e18-34.2) Garrett SR, Ivette FR, Anisha PH, and Rukhsana RICO. A commongenetic variation in the 3'-untranslated region of the prothrombingene is associated with elevated plasma prothrombin levels and anincrease in venous thrombosis. Blood 88:3698-703, 1995.3) Megan I, Ariel V, Marlon C, Debbie K. [id number]>T: 16 new cases, association with the 48623P>G polymorphism,and literature review. J Thromb Haemost. 2009;9:1585-7.As reviewed by Fawn Pritchett MD Performed By: #### P TGEN ####[facility] [id number] [place] [address] [place] Basic metabolic 2000 panelon 04-22-2024 Anion gap [Moles/Vol] 11 mmol/L Normal 8-15 [facility] Comment on above: Order Comment: Speci men Type: BLOOD SPECIMENOrdering Facility: [facility] [facility] Address: [address] [place] [address] Performed By: #### 2 4321-2, ####[facility] LABORATORYCLIA [id number] [place] [address] [place] Calcium [Mass/Vol] 8.8 mg/dL Normal 8.5-10.2 [facility] Comment on above: Order Comment: Speci men Type: BLOOD SPECIMENOrdering Facility: [facility] Address: [address] [place] [address] Performed By: #### 2 4322, ####[facility] LABORATORYCLIA [id number] [place], [place] [id number] [place] [address] [place] Chloride [Moles/Vol] 107 mmol/L Normal 98-107 [facility] Comment on above: Order Comment: Speci men Type: BLOOD SPECIMENOrdering Facility: [facility] Address: [address] [place] [address] Performed By: #### 2 2, ####[facility] LABORATORYCLIA [id number] [place] [id number] [facility] CO2 [Moles/Vol] 22 mmol/L Normal 22-30 [facility] Comment on above: Order Comment: Speci men Type: BLOOD SPECIMENOrdering Facility: [facility] Address: [address] [place] [address] Performed By: #### 2 4320-09, ####[facility] LABORATORYCLIA [id number] [address] Creatinine [Mass/Vol] 0.80 mg/dL Normal 0.58-0.96 [facility] Comment on above: Order Comment: Speci men Type: BLOOD SPECIMENOrdering Facility: [facility] Address: [address] [place] [address] Performed By: #### 2 4320-09, ####[facility] LABORATORYCLIA [id number] [address] Creatinine and Glomerular filtration rate.predicted panel (S/P/Bld) 80 mL/min/1.73m??? Normal >=60 [facility] Comment on above: Order Comment: Speci men Type: BLOOD SPECIMENOrdering Facility: [facility] Address: [address] [place] [address] Result Comment: Conchita mated Glomerular Filtration Rate [...] reflect actual GFR. Performed By: #### 2 43208-20, ####[facility] LABORATORYCLIA [id number] [place] [address] [place] Glucose [Mass/Vol] 84 mg/dL Normal 74-99 [facility] Comment on above: Order Comment: Speci men Type: BLOOD SPECIMENOrdering Facility: [facility] Address: [address] [place] [address] Result Comment: The [employer] (ADA) provides guidance for cutoff [...] Standards of Medical Care in Diabetes 2016, [employer]. Diabetes Care. 2016.39(Suppl 1). Performed By: #### 2 43208-20, ####[facility] LABORATORYCLIA [id number] [place] [address] [place] Potassium [Moles/Vol] 3.7 mmol/L Normal 3.7-5.1 [facility] Comment on above: Order Comment: Speci men Type: BLOOD SPECIMENOrdering Facility: [facility] Address: [address] [place] [address] Performed By: #### 2 43208-20, ####[facility] LABORATORYCLIA [id number] [place] [id number] [place] Sodium [Moles/Vol] 140 mmol/L Normal 136-144 [facility] Comment on above: Order Comment: Anthonyi men Type: BLOOD SPECIMENOrdering Facility: [facility] Address: [address] [place] [address] Performed By: #### 2 432-2, 82824-9 ####[facility] LABORATORYCLIA [id number] [place] [address] [place] Urea nitrogen [Mass/Vol] 17 mg/dL Normal 7-21 [facility] Comment on above: Order Comment: Speci men Type: BLOOD SPECIMENOrdering Facility: [facility] Address: [address] [place] [address] Performed By: #### 2 432-2, ####[facility] LABORATORYCLIA [id number] [place] [address] [place] CASE MANAGEMon 04-22-2024 CASE MANAGEM Normal [facility] CBC W Auto Differential pane l (Bld)on 04-22-2024 Basophils (Bld) [#/Vol] 0.05 10*3/uL Normal <0.11 [facility] Comment on above: Order Comment: Speci men Type: BLOOD SPECIMENOrdering Facility: [facility] Address: [address] [place] [address] Performed By: #### 5 7021-8 ####[facility] LABORATORYCLIA [id number] [address] [place] Basophils/100 WBC (Bld) 0.7 % Normal [facility] Comment on above: Order Comment: Speci men Type: BLOOD SPECIMENOrdering Facility: [facility] Address: [address] [place] [address] Performed By: #### 5 7021-8 ####[facility] LABORATORYCLIA [id number] [address] [place] Differential cell count method Nom (Bld) Auto Normal [facility] Comment on above: Order Comment: Speci men Type: BLOOD SPECIMENOrdering Facility: [facility] Address: [address] [place] [address] Performed By: #### 5 7021-8 ####[facility] LABORATORYCLIA [id number] [place] [address] [place] Eosinophils (Bld) [#/Vol] 0.26 10*3/uL Normal <0.46 [facility] Comment on above: Order Comment: Speci men Type: BLOOD SPECIMENOrdering Facility: [facility] Address: [address] [place] [address] Performed By: #### 5 7021-8 ####[facility] LABORATORYCLIA [id number] [address] [place] Eosinophils/100 WBC (Bld) 3.6 % Normal [facility] Comment on above: Order Comment: Speci men Type: BLOOD SPECIMENOrdering Facility: [facility] Address: [address] [place] [address] Performed By: #### 5 7021-8 ####[facility] LABORATORYCLIA [id number] [address] [place] Erythrocyte distribution width (RBC) [Ratio] 12.4 % Normal 11.5-15.0 [facility] Comment on above: Order Comment: Speci men Type: BLOOD SPECIMENOrdering Facility: [facility] Address: [address] [place] [address] Performed By: #### 5 7021-8 ####[facility] LABORATORYCLIA [id number] [address] [place] Hematocrit (Bld) [Volume fraction] 42.0 % Normal 36.0-46.0 [facility] Comment on above: Order Comment: Speci men Type: BLOOD SPECIMENOrdering Facility: [facility] Address: [address] [place] [address] Performed By: #### 5 7021-8 ####[facility] LABORATORYCLIA [id number] [address] [place] Hemoglobin (Bld) [Mass/Vol] 14.3 g/dL Normal 11.5-15.5 [facility] Comment on above: Order Comment: Speci men Type: BLOOD SPECIMENOrdering Facility: [facility] Address: [address] [place] [address] Performed By: #### 5 7021-8 ####[facility] LABORATORYCLIA [id number] [address] Immature granulocytes (Bld) [#/Vol] 0.03 10*3/uL Normal <0.10 [facility] Comment on above: Order Comment: Speci men Type: BLOOD SPECIMENOrdering Facility: [facility] Address: [address] [place] [address] Performed By: #### 5 7021-8 ####[facility] LABORATORYCLIA [id number] [address] STATES [facility] Immature granulocytes/100 WBC (Bld) 0.4 % Normal [facility] Comment on above: Order Comment: Speci men Type: BLOOD SPECIMENOrdering Facility: [facility] Address: [address] [place] [address] Performed By: #### 5 7021-8 ####[facility] LABORATORYCLIA [id number] [address] [place] Lymphocytes (Bld) [#/Vol] 1.78 10*3/uL Normal 1.00-4.00 [facility] Comment on above: Order Comment: Speci men Type: BLOOD SPECIMENOrdering Facility: [facility] Address: [address] [place] [address] Performed By: #### 5 7021-8 ####[facility] LABORATORYCLIA [id number] [address] Lymphocytes/100 WBC (Bld) 24.9 % Normal [facility] Comment on above: Order Comment: Speci men Type: BLOOD SPECIMENOrdering Facility: [facility] Address: [address] [place] [address] Performed By: #### 5 7021-8 ####[facility] LABORATORYCLIA [id number] [address] [place] MCH (RBC) [Entitic mass] 31.4 pg Normal 26.0-34.0 [facility] Comment on above: Order Comment: Speci men Type: BLOOD SPECIMENOrdering Facility: [facility] Address: [address] [place] [address] Performed By: #### 5 7021-8 ####[facility] LABORATORYCLIA [id number] [address] [place] MCHC (RBC) [Mass/Vol] 34.0 g/dL Normal 30.5-36.0 [facility] Comment on above: Order Comment: Speci men Type: BLOOD SPECIMENOrdering Facility: [facility] Address: [address] [place] [address] Performed By: #### 5 7021-8 ####[facility] LABORATORYCLIA [id number] [address] [place] MCV (RBC) [Entitic vol] 92.3 fL Normal 80.0-100.0 [facility] Comment on above: Order Comment: Speci men Type: BLOOD SPECIMENOrdering Facility: [facility] Address: [address] [place] [address] Performed By: #### 5 7021-8 ####[facility] LABORATORYCLIA [id number] [address] STATES [facility] Monocytes (Bld) [#/Vol] 0.50 10*3/uL Normal <0.87 [facility] Comment on above: Order Comment: Speci men Type: BLOOD SPECIMENOrdering Facility: [facility] Address: [address] [place] [address] Performed By: #### 5 7021-8 ####[facility] LABORATORYCLIA [id number] [address] Monocytes/100 WBC (Bld) 7.0 % Normal [facility] Comment on above: Order Comment: Speci men Type: BLOOD SPECIMENOrdering Facility: [facility] Address: [address] [place] [address] Performed By: #### 5 7021-8 ####[facility] LABORATORYCLIA [id number] [address] [place] Neutrophils (Bld) [#/Vol] 4.54 10*3/uL Normal 1.45-7.50 [facility] Comment on above: Order Comment: Speci men Type: BLOOD SPECIMENOrdering Facility: [facility] Address: [address] [place] [address] Performed By: #### 5 7021-8 ####[facility] LABORATORYCLIA [id number] [address] Neutrophils/100 WBC (Bld) 63.4 % Normal [facility] Comment on above: Order Comment: Speci men Type: BLOOD SPECIMENOrdering Facility: [facility] Address: [address] [place] [address] Performed By: #### 5 7021-8 ####[facility] LABORATORYCLIA [id number] [address] [place] Nucleated RBC (Bld) [#/Vol] 10*3/uL Normal <0.01 [facility] Comment on above: Order Comment: Speci men Type: BLOOD SPECIMENOrdering Facility: [facility] Address: [address] [place] [address] Performed By: #### 5 7021-8 ####[facility] LABORATORYCLIA [id number] [address] [place] Nucleated RBC/100 WBC (Bld) [Ratio] 0.0 /100 WBC Normal [facility] Comment on above: Order Comment: Speci men Type: BLOOD SPECIMENOrdering Facility: [facility] Address: [address] [place] [address] Performed By: #### 5 7021-8 ####[facility] LABORATORYCLIA [id number] [place] [address] [place] Platelet mean volume (Bld) [Entitic vol] 9.6 fL Normal 9.0-12.7 [facility] Comment on above: Order Comment: Speci men Type: BLOOD SPECIMENOrdering Facility: [facility] Address: [address] [place] [address] Performed By: #### 5 7021-8 ####[facility] LABORATORYCLIA [id number] [place] [address] [place] Platelets (Bld) [#/Vol] 274 10*3/uL Normal 150-400 [facility] Comment on above: Order Comment: Speci men Type: BLOOD SPECIMENOrdering Facility: [facility] Address: [address] [place] [address] Performed By: #### 5 7021-8 ####[facility] LABORATORYCLIA [id number] [address] [place] [facility] RBC (Bld) [#/Vol] 4.55 10*6/uL Normal 3.90-5.20 [facility] Comment on above: Order Comment: Speci men Type: BLOOD SPECIMENOrdering Facility: [facility] Address: [address] [place] [address] Performed By: #### 5 7021-8 ####[facility] LABORATORYCLIA [id number] [address] WBC (Bld) [#/Vol] 7.16 10*3/uL Normal 3.70-11.00 [facility] Comment on above: Order Comment: Speci men Type: BLOOD SPECIMENOrdering Facility: [facility] Address: [address] [place] [address] Performed By: #### 5 7021-8 ####[facility] LABORATORYCLIA [id number] [address] CONSULT PROGon 04-22-2024 CONSULT PROG Normal [facility] ECG COMPLETEon 04-22-2024 ECG COMPLETE Normal [facility] ECHO WITH AGITATED SALINE CO NTRASTon 04-22-2024 ECHO WITH AGITATED SALINE CONTRAST Normal [facility] Magnesium SerPl-mCncon 04-22 Magnesium [Mass/Vol] 2.0 mg/dL Normal 1.7-2.3 [facility] Comment on above: Order Comment: Speci men Type: BLOOD SPECIMENOrdering Facility: [facility] Address: [address] [place] [address] Performed By: #### 2 4321-2, 69377-2 ####[facility] LABORATORYCLIA [id number] [address] [place] THERAPY NTon 04-22-2024 THERAPY NT Normal [facility] THERAPY NT Normal [facility] US DVT LOWER BILon US DVT LOWER TRACEE Normal [facility] ALLIED HEALTHon 04-21-2024 ALLIED HEALTH Normal [facility] Basic metabolic 2000 panelon 04-21-2024 Anion gap [Moles/Vol] 14 mmol/L Normal 8-15 [facility] Comment on above: Order Comment: Speci men Type: BLOOD SPECIMENOrdering Facility: [facility] Address: [address] [place] [address] Performed By: #### 2 432-2, ####[facility] LABORATORYCLIA [id number] [place] [address] [place] Calcium [Mass/Vol] 9.0 mg/dL Normal 8.5-10.2 [facility] Comment on above: Order Comment: Speci men Type: BLOOD SPECIMENOrdering Facility: [facility] Address: [address] [place] [address] Performed By: #### 2 2, ####[facility] LABORATORYCLIA [id number] [place] [address] [place] Chloride [Moles/Vol] 106 mmol/L Normal 98-107 [facility] Comment on above: Order Comment: Speci men Type: BLOOD SPECIMENOrdering Facility: [facility] Address: [address] [place] [address] Performed By: #### 2 4320-09, ####[facility] LABORATORYCLIA [id number] [place] [id number] [place] CO2 [Moles/Vol] 21 mmol/L Low 22-30 [facility] Comment on above: Order Comment: Speci men Type: BLOOD SPECIMENOrdering Facility: [facility] Address: [address] [place] [address] Performed By: #### 2 4320-2, ####[facility] LABORATORYCLIA [id number] [place] [address] [place] Creatinine [Mass/Vol] 0.77 mg/dL Normal 0.58-0.96 [facility] Comment on above: Order Comment: Prince omer Type: BLOOD SPECIMENOrdering Facility: [facility] Address: [address] [place] [address] Performed By: #### 2 4321-2, ####[facility] LABORATORYCLIA [id number] [place] [id number] [facility] Creatinine and Glomerular filtration rate.predicted panel (S/P/Bld) 84 mL/min/1.73m??? Normal >=60 [facility] Comment on above: Order Comment: Prince omer Type: BLOOD SPECIMENOrdering Facility: [facility] Address: [address] [place] [address] Result Comment: Conchita mated Glomerular Filtration Rate [...] reflect actual GFR. Performed By: #### 2 4321-, ####[facility] LABORATORYCLIA [id number] [address] [place] Glucose [Mass/Vol] 91 mg/dL Normal 74-99 [facility] Comment on above: Order Comment: Prince omer Type: BLOOD SPECIMENOrdering Facility: [facility] Address: [address] [place] [address] Result Comment: The [employer] (ADA) provides guidance for cutoff [...] Standards of Medical Care in Diabetes 2016, [employer]. Diabetes Care. 2016.39(Suppl 1). Performed By: #### 2 432-2, ####[facility] LABORATORYCLIA [id number] [place] [address] [place] Potassium [Moles/Vol] 3.9 mmol/L Normal 3.7-5.1 [facility] Comment on above: Order Comment: Speci men Type: BLOOD SPECIMENOrdering Facility: [facility] Address: [address] [place] [address] Performed By: #### 2 4322, ####[facility] LABORATORYCLIA [id number] [address] [place] Sodium [Moles/Vol] 141 mmol/L Normal 136-144 [facility] Comment on above: Order Comment: Speci men Type: BLOOD SPECIMENOrdering Facility: [facility] Address: [address] [place] [address] Performed By: #### 2 43208-20, ####[facility] LABORATORYCLIA [id number] [address] STATES [facility] Urea nitrogen [Mass/Vol] 16 mg/dL Normal 7-21 [facility] Comment on above: Order Comment: Speci men Type: BLOOD SPECIMENOrdering Facility: [facility] Address: [address] [place] [address] Performed By: #### 2 4320-09, ####[facility] LABORATORYCLIA [id number] [place] [address] [place] CASE MGT INIT ASSESon 2023 CASE MGT INIT ASSES Normal [facility] CBC panel Auto (Bld)on 04-21 Erythrocyte distribution width (RBC) [Ratio] 12.5 % Normal 11.5-15.0 [facility] Comment on above: Order Comment: Speci men Type: BLOOD SPECIMENOrdering Facility: [facility] Address: [address] [place] [address] Performed By: #### 5 8410-2 ####[facility] LABORATORYCLIA [id number] [address] Hematocrit (Bld) [Volume fraction] 41.5 % Normal 36.0-46.0 [facility] Comment on above: Order Comment: Speci men Type: BLOOD SPECIMENOrdering Facility: [facility] Address: [address] [place] [address] Performed By: #### 5 8410-2 ####[facility] LABORATORYCLIA [id number] [address] OF [facility] Hemoglobin (Bld) [Mass/Vol] 13.9 g/dL Normal 11.5-15.5 [facility] Comment on above: Order Comment: Speci men Type: BLOOD SPECIMENOrdering Facility: [facility] Address: [address] [place] [address] Performed By: #### 5 8410-2 ####[facility] LABORATORYCLIA [id number] [address] [place] [facility] MCH (RBC) [Entitic mass] 31.2 pg Normal 26.0-34.0 [facility] Comment on above: Order Comment: Speci men Type: BLOOD SPECIMENOrdering Facility: [facility] Address: [address] [place] [address] Performed By: #### 5 8410-2 ####[facility] LABORATORYCLIA [id number] [address] [place] MCHC (RBC) [Mass/Vol] 33.5 g/dL Normal 30.5-36.0 [facility] Comment on above: Order Comment: Speci men Type: BLOOD SPECIMENOrdering Facility: [facility] Address: [address] [place] [address] Performed By: #### 5 8410-2 ####[facility] LABORATORYCLIA [id number] [address] [place] MCV (RBC) [Entitic vol] 93.0 fL Normal 80.0-100.0 [facility] Comment on above: Order Comment: Speci men Type: BLOOD SPECIMENOrdering Facility: [facility] Address: [address] [place] [address] Performed By: #### 5 8410-2 ####[facility] LABORATORYCLIA [id number] [place] [address] [place] Nucleated RBC (Bld) [#/Vol] 10*3/uL Normal <0.01 [facility] Comment on above: Order Comment: Speci men Type: BLOOD SPECIMENOrdering Facility: [facility] Address: [address] [place] [address] Performed By: #### 5 8410-2 ####[facility] LABORATORYCLIA [id number] [place] [address] [place] Platelet mean volume (Bld) [Entitic vol] 9.5 fL Normal 9.0-12.7 [facility] Comment on above: Order Comment: Speci men Type: BLOOD SPECIMENOrdering Facility: [facility] Address: [address] [place] [address] Performed By: #### 5 8410-2 ####[facility] LABORATORYCLIA [id number] [place] [address] [place] Platelets (Bld) [#/Vol] 246 10*3/uL Normal 150-400 [facility] Comment on above: Order Comment: Speci men Type: BLOOD SPECIMENOrdering Facility: [facility] Address: [address] [place] [address] Performed By: #### 5 8410-2 ####[facility] LABORATORYCLIA [id number] [place] [address] [place] RBC (Bld) [#/Vol] 4.46 10*6/uL Normal 3.90-5.20 [facility] Comment on above: Order Comment: Speci men Type: BLOOD SPECIMENOrdering Facility: [facility] Address: [address] [place] [address] Performed By: #### 5 8410-2 ####[facility] LABORATORYCLIA [id number] [address] [place] WBC (Bld) [#/Vol] 7.57 10*3/uL Normal 3.70-11.00 [facility] Comment on above: Order Comment: Speci men Type: BLOOD SPECIMENOrdering Facility: [facility] Address: [address] [place] [address] Performed By: #### 5 8410-2 ####[facility] LABORATORYCLIA [id number] [address] [place] BRAIN WO IVCONon 04-21-[address] BRAIN WO IVCON Normal [facility] ECG COMPLETEon 04-21-2024 ECG COMPLETE Normal [facility] HIGH SENSITIVITY TROPONIN To n 04-21-2024 Troponin T.cardiac High sensitivity method [Mass/Vol] 9 ng/L Normal <12 [facility] Comment on above: Order Comment: Speci men Type: BLOOD SPECIMENOrdering Facility: [facility] Address: [address] [place] [address] Performed By: #### H STNT ####[facility] LABORATORYCLIA [id number] [address] [place] MRI BRAIN WO/W IVCONon 04-21 MRI BRAIN WO/W IVCON Normal [facility] Magnesium SerPl-mCncon 04-21 Magnesium [Mass/Vol] 2.0 mg/dL Normal 1.7-2.3 [facility] Comment on above: Order Comment: Speci men Type: BLOOD SPECIMENOrdering Facility: [facility] Address: [address] [place] [address] Performed By: #### 2 4321-2, 76840-1 ####[facility] LABORATORYCLIA [id number] [address] [place] THERAPY NTon 04-21-2024 THERAPY NT Normal [facility] TSH SerPl-aCncon 04-21-2024 TSH Qn 1.910 m[IU]/L Normal 0.270-4.200 [facility] Comment on above: Order Comment: Speci men Type: BLOOD SPECIMENOrdering Facility: [facility] Address: [address] [place] [address] Performed By: #### 3 016-3 ####[facility] LABORATORYCLIA [id number] [place] [id number] [place] Basic metabolic 2000 panelon 04-20-2024 Anion gap [Moles/Vol] 12 mmol/L Normal 8-15 [facility] Comment on above: Order Comment: Speci men Type: BLOOD SPECIMENOrdering Facility: [facility] Address: [address] [place] [address] Performed By: #### 2 4321-2, 15348-0, 277-1, 46782-6 ####[facility] LABORATORYCLIA [id number] [address] [place] Calcium [Mass/Vol] 9.0 mg/dL Normal 8.5-10.2 [facility] Comment on above: Order Comment: Speci men Type: BLOOD SPECIMENOrdering Facility: [facility] Address: [address] [place] [address] Performed By: #### 2 4321-2, 94307-4, 2776-1, 53397-2 ####[facility] LABORATORYCLIA [id number] [place] [address] [place] Chloride [Moles/Vol] 103 mmol/L Normal 98-107 [facility] Comment on above: Order Comment: Speci men Type: BLOOD SPECIMENOrdering Facility: [facility] Address: [address] [place] [address] Performed By: #### 2 4321-2, 89688-3, 7-1, 72580-1 ####[facility] LABORATORYCLIA [id number] [place] [id number] [place] CO2 [Moles/Vol] 24 mmol/L Normal 22-30 [facility] Comment on above: Order Comment: Speci men Type: BLOOD SPECIMENOrdering Facility: [facility] Address: [address] [place] [address] Performed By: #### 2 4321-2, , 2776-08, ####[facility]ITALIA [id number] [place] [id number] [place] [facility] Creatinine [Mass/Vol] 0.92 mg/dL Normal 0.58-0.96 [facility] Comment on above: Order Comment: Prince omer Type: BLOOD SPECIMENOrdering Facility: [facility] Address: [address] [place] [address] Performed By: #### 2 4321-2, , 2776-08, ####[facility]ITALIA [id number] [place] [id number] [facility] Creatinine and Glomerular filtration rate.predicted panel (S/P/Bld) 68 mL/min/1.73m??? Normal >=60 [facility] Comment on above: Order Comment: Prince omer Type: BLOOD SPECIMENOrdering Facility: [facility] Address: [address] [place] [address] Result Comment: Conchita mated Glomerular Filtration Rate [...] reflect actual GFR. Performed By: #### 2 4321-2, , 2776-08, ####[facility]ITALIA [id number] [place] [id number] [facility] Glucose [Mass/Vol] 94 mg/dL Normal 74-99 [facility] Comment on above: Order Comment: Speci peter Type: BLOOD SPECIMENOrdering Facility: [facility] Address: [address] [place] [address] Result Comment: The [place] Diabetes Association (ADA) provides guidance for cutoff [...] Standards of Medical Care in Diabetes 2016, [place] Diabetes Association. Diabetes Care. 2016.39(Suppl 1). Performed By: #### 2 4321-2, , 2776-08, 18243-5 ####[facility] LABORATORYCLIA [id number] [place] [address] [place] Potassium [Moles/Vol] 3.6 mmol/L Low 3.7-5.1 [facility] Comment on above: Order Comment: Prince omer Type: BLOOD SPECIMENOrdering Facility: [facility] Address: [address] [place] [address] Performed By: #### 2 432-2, , 2776-08, 29459-2 ####[facility]PITALCLIA [id number] [place] [address] [place] Sodium [Moles/Vol] 139 mmol/L Normal 136-144 [facility] Comment on above: Order Comment: Prince omer Type: BLOOD SPECIMENOrdering Facility: [facility] Address: [address] [place] [address] Performed By: #### 2 4321-2, , 2776-08, 26026-0 ####[facility] LABORATORYCLIA [id number] [address] [place] Urea nitrogen [Mass/Vol] 19 mg/dL Normal 7-21 [facility] Comment on above: Order Comment: Prince omer Type: BLOOD SPECIMENOrdering Facility: [facility] Address: [address] [place] [address] Performed By: #### 2 4321-2, , 2776-, 55791-6 ####[facility] LABORATORYCLIA [id number] [place] [address] [place] CBC panel Auto (Bld)on 04-20 Erythrocyte distribution width (RBC) [Ratio] 12.4 % Normal 11.5-15.0 [facility] Comment on above: Order Comment: Speci men Type: BLOOD SPECIMENOrdering Facility: [facility] Address: [address] [place] [address] Performed By: #### 5 8410-2 ####[facility] LABORATORYCLIA [id number] [address] OF [facility] Hematocrit (Bld) [Volume fraction] 40.2 % Normal 36.0-46.0 [facility] Comment on above: Order Comment: Speci men Type: BLOOD SPECIMENOrdering Facility: [facility] Address: [address] [place] [address] Performed By: #### 5 8410-2 ####[facility] LABORATORYCLIA [id number] [address] Hemoglobin (Bld) [Mass/Vol] 13.6 g/dL Normal 11.5-15.5 [facility] Comment on above: Order Comment: Speci men Type: BLOOD SPECIMENOrdering Facility: [facility] Address: [address] [place] [address] Performed By: #### 5 8410-2 ####[facility] LABORATORYCLIA [id number] [address] [place] MCH (RBC) [Entitic mass] 31.4 pg Normal 26.0-34.0 [facility] Comment on above: Order Comment: Speci men Type: BLOOD SPECIMENOrdering Facility: [facility] Address: [address] [place] [address] Performed By: #### 5 8410-2 ####[facility] LABORATORYCLIA [id number] [address] [place] MCHC (RBC) [Mass/Vol] 33.8 g/dL Normal 30.5-36.0 [facility] Comment on above: Order Comment: Speci men Type: BLOOD SPECIMENOrdering Facility: [facility] Address: [address] [place] [address] Performed By: #### 5 8410-2 ####[facility] LABORATORYCLIA [id number] [address] OF [facility] MCV (RBC) [Entitic vol] 92.8 fL Normal 80.0-100.0 [facility] Comment on above: Order Comment: Speci men Type: BLOOD SPECIMENOrdering Facility: [facility] Address: [facility] [place] [address] Performed By: #### 5 8410-2 ####[facility] LABORATORYCLIA [id number] [address] [place] Nucleated RBC (Bld) [#/Vol] 10*3/uL Normal <0.01 [facility] Comment on above: Order Comment: Speci men Type: BLOOD SPECIMENOrdering Facility: [facility] Address: [address] [place] [address] Performed By: #### 5 8410-2 ####[facility] LABORATORYCLIA [id number] [address] [place] Platelet mean volume (Bld) [Entitic vol] 9.9 fL Normal 9.0-12.7 [facility] Comment on above: Order Comment: Speci men Type: BLOOD SPECIMENOrdering Facility: [facility] Address: [address] [place] [address] Performed By: #### 5 8410-2 ####[facility] LABORATORYCLIA [id number] [address] [place] Platelets (Bld) [#/Vol] 278 10*3/uL Normal 150-400 [facility] Comment on above: Order Comment: Speci men Type: BLOOD SPECIMENOrdering Facility: [facility] Address: [facility] [place] [address] Performed By: #### 5 8410-2 ####[facility] LABORATORYCLIA [id number] [address] [place] RBC (Bld) [#/Vol] 4.33 10*6/uL Normal 3.90-5.20 [facility] Comment on above: Order Comment: Speclizett omer Type: BLOOD SPECIMENOrdering Facility: [facility] Address: [address] [place] [address] Performed By: #### 5 8410-2 ####[facility] LABORATORYCLIA [id number] [place] [address] [place] WBC (Bld) [#/Vol] 7.81 10*3/uL Normal 3.70-11.00 [facility] Comment on above: Order Comment: Speci men Type: BLOOD SPECIMENOrdering Facility: [facility] Address: [address] [place] [address] Performed By: #### 5 8410-2 ####[facility] LABORATORYCLIA [id number] [place] [id number] [place] CONSULTon 04-20-2024 CONSULT Normal [facility] CT BRAIN WO IVCONon 04-20-[address] BRAIN WO IVCON Normal [facility] HbA1c (Bld)on 04-20-2024 Average glucose Estimated from glycated hemoglobin (Bld) [Mass/Vol] 105 mg/dL Normal [facility] Comment on above: Order Comment: Anthonylizett [facility] Type: BLOOD SPECIMENOrdering Facility: [facility] Address: [address] [place] [address] Result Comment: eAG: (Estimated average glucose) is a calculated value from HgbA1c and is franchise sales representative of the average blood glucose level in the last 2-3 month period. Performed By: #### 5 5454-3 ####[facility] LABCLIA [id number] [facility] [place]38[place] [address] [place] HbA1c (Bld) [Mass fraction] 5.3 % Normal 4.3-5.6 [facility] Comment on above: Order Comment: Prince [facility] Type: BLOOD SPECIMENOrdering Facility: [facility] Address: [address] [place] [address] Result Comment: Amer ican Diabetes Association guidelines indicate that patients with HgbA1c in the range 5.7-6.4% are at increased risk for development of diabetes, and intervention by lifestyle modification may be beneficial. HgbA1c greater or equal to 6.5% is considered diagnostic of diabetes. Performed By: #### 5 5454-3 ####[facility] LABCLIA [id number] [facility] Y87QHINRIZMZ[place] [address] [place] Lipid 1996 panelon 4 Cholesterol [Mass/Vol] 129 mg/dL Normal <200 [facility] Comment on above: Order Comment: Speci men Type: BLOOD SPECIMENOrdering Facility: [facility] Address: [address] [place] [address] Result Comment: <200 mg/dL, Desirable 200-239 mg/dL, Borderline high>239 mg/dL, High Performed By: #### 2 4321-2, 67270-7, 2776-08, 00937-6 ####[facility] LABORATORYCLIA [id number] [address] [place] Cholesterol in HDL [Mass/Vol] 42 mg/dL Normal >39 [facility] Comment on above: Order Comment: Speci men Type: BLOOD SPECIMENOrdering Facility: [facility] Address: [address] [place] [address] Result Comment: 40-5 9 mg/dL, Acceptable>59 mg/dL, High: Negative risk factor for coronary heart disease<40 mg/dL, Low: Positive risk factor for coronary heart disease Performed By: #### 2 4321-2, , 2776-08, 36692-7 ####[facility] LABORATORYCLIA [id number] [address] OF [facility] Cholesterol in LDL [Mass/Vol] 73 mg/dL Normal <100 [facility] Comment on above: Order Comment: Speci men Type: BLOOD SPECIMENOrdering Facility: [facility] Address: [address] [place] [address] Result Comment: <100 mg/dL, Optimal 100-129 mg/dL, Near optimal/above optimal 130-159 mg/dL, Borderline high 160-189 mg/dL, High>189 mg/dL, Very highSecondary prevention optimal LDL Cholesterol levels are recommended to be < 70 mg/dL Performed By: #### 2 4321-2, 34285-7, 2777-1, 47961-7 ####[facility] LABORATORYCLIA [id number] [address] Cholesterol in LDL/Cholesterol in HDL [Mass ratio] 1.74 {ratio} Normal <2.54 [facility] Comment on above: Order Comment: Speci men Type: BLOOD SPECIMENOrdering Facility: [facility] Address: [address] [place] [address] Result Comment: Refe rence:1. National Cholesterol Education Program ATP III Guideline At-A-Glance Quick Desk Reference: National Heart, Lung, and Blood [place]. National Institutes of Health. 2001: NIH Publication No. 01-3305.2. An International Atherosclerosis Society position paper: global recommendations for the management of dyslipidemia: executive summary, Atherosclerosis. 2014: 232(2):410-413. Performed By: #### 2 4321-2, 87276-0, 2777-, 36047-3 ####[facility]ITALCLIA [id number] [address] Cholesterol in VLDL [Mass/Vol] 14 mg/dL Normal <30 [facility] Comment on above: Order Comment: Speci men Type: BLOOD SPECIMENOrdering Facility: [facility] Address: [address] [place] [address] Performed By: #### 2 4321-2, 56381-3, 277-, 58725-0 ####[facility] LABORATORYCLIA [id number] [address] OF [facility] Cholesterol non HDL [Mass/Vol] 87 mg/dL Normal <130 [facility] Comment on above: Order Comment: Speci men Type: BLOOD SPECIMENOrdering Facility: [facility] Address: [address] [place] [address] Result Comment: <130 mg/dL, Optimal 130-159 mg/dL, Near optimal/above optimal 160-189 mg/dL, Borderline high 190-219 mg/dL, High>219 mg/dL, Very highSecondary prevention optimal non HDL Cholesterol levels are recommended to be <100 mg/dL Performed By: #### 2 4321-2, 66940-1, 2777-1, 20721-3 ####[facility] LABORATORYCLIA [id number] [address] Cholesterol.total/Chol esterol in HDL [Mass ratio] 3.07 {ratio} Normal <5.10 [facility] Comment on above: Order Comment: Speci men Type: BLOOD SPECIMENOrdering Facility: [facility] Address: [address] [place] [address] Performed By: #### 2 4321-2, 41709-9, 2777-1, 99444-7 ####[facility] LABORATORYCLIA [id number] [address] FASTING TIME 8 hrs Normal [facility] Comment on above: Order Comment: Speci men Type: BLOOD SPECIMENOrdering Facility: [facility] Address: [address] [place] [address] Performed By: #### 2 4321-2, 51365-0, 2776-1, 14947-2 ####[facility] LABORATORYCLIA [id number] [address] Triglyceride [Mass/Vol] 71 mg/dL Normal <150 [facility] Comment on above: Order Comment: Speci men Type: BLOOD SPECIMENOrdering Facility: [facility] Address: [address] [place] [address] Result Comment: <150 mg/dL, Normal 150-199 mg/dL, Borderline high 200-499 mg/dL, High>499 mg/dL, Very high Performed By: #### 2 4321-2, 86674-4, 2777-1, 49673-6 ####[facility] LABORATORYCLIA [id number] [address] [place] Magnesium SerPl-mCncon 04-20 Magnesium [Mass/Vol] 2.0 mg/dL Normal 1.7-2.3 [facility] Comment on above: Order Comment: Speci men Type: BLOOD SPECIMENOrdering Facility: [facility] Address: [address] [place] [address] Performed By: #### 2 4321-2, 52933-3, 2776-08, 33942-5 ####[facility] LABORATORYCLIA [id number] [place] [address] [facility] NURSING PROGon 04-20-2024 NURSING PROG Normal [facility] Phosphate SerPl-mCncon 04-20 Phosphate [Mass/Vol] 4.1 mg/dL Normal 2.7-4.8 [facility] Comment on above: Order Comment: Speci men Type: BLOOD SPECIMENOrdering Facility: [facility] Address: [facility] [place] [address] Performed By: #### 2 4321-2, , 2776-08, 01985-4 ####[facility] LABORATORYCLIA [id number] [address] [place] [facility] Basic metabolic 2000 panelon 04-19-2024 Anion gap [Moles/Vol] 16 mmol/L High 8-15 [facility] Comment on above: Order Comment: Speci men Type: BLOOD SPECIMENOrdering Facility: [facility] Address: [facility] [place] [address] Performed By: #### 2 4321-2, 91356-2, , 2776-08 ####[facility] LABORATORYCLIA [id number] [address] [place] Calcium [Mass/Vol] 9.4 mg/dL Normal 8.5-10.2 [facility] Comment on above: Order Comment: Speci men Type: BLOOD SPECIMENOrdering Facility: [facility] Address: [address] [place], [place] [address] [address] Performed By: #### 2 4321-2, 10087-6, , 2776-08 ####[facility] LABORATORYCLIA [id number] [place] [id number] [place] Chloride [Moles/Vol] 100 mmol/L Normal 98-107 [facility] Comment on above: Order Comment: Speci men Type: BLOOD SPECIMENOrdering Facility: [facility] Address: [address] [place] [address] Performed By: #### 2 4321-2, 38873-3, , 2776-08 ####[facility] LABORATORYCLIA [id number] [address] [place] [facility] CO2 [Moles/Vol] 24 mmol/L Normal 22-30 [facility] Comment on above: Order Comment: Speci men Type: BLOOD SPECIMENOrdering Facility: [facility] Address: [address] [place], [place] [address] Performed By: #### 2 4321-2, 94004-7, , 2776-08 ####[facility] LABORATORYCLIA [id number] [address] Creatinine [Mass/Vol] 0.92 mg/dL Normal 0.58-0.96 [facility] Comment on above: Order Comment: Speci men Type: BLOOD SPECIMENOrdering Facility: [facility] Address: [address] [place] [address] Performed By: #### 2 4321-2, 43143-6, , 2776-08 ####[facility] LABORATORYCLIA [id number] [address] Creatinine and Glomerular filtration rate.predicted panel (S/P/Bld) 68 mL/min/1.73m??? Normal >=60 [facility] Comment on above: Order Comment: Speclizett omer Type: BLOOD SPECIMENOrdering Facility: [facility] Address: [address] [place] [address] Result Comment: Conchita mated Glomerular Filtration Rate [...] reflect actual GFR. Performed By: #### 2 4321-2, 79271-7, 09645-0, 2776- ####[facility] LABORATORYCLIA [id number] [place] [address] [place] Glucose [Mass/Vol] 102 mg/dL High 74-99 [facility] Comment on above: Order Comment: Speci men Type: BLOOD SPECIMENOrdering Facility: [facility] Address: [address] [place] [address] Result Comment: The [place] Diabetes Association (ADA) provides guidance for cutoff [...] Standards of Medical Care in Diabetes 2016, [place] Diabetes Association. Diabetes Care. 2016.39(Suppl 1). Performed By: #### 2 4321-2, 83703-9, , 2776-08 ####[facility] LABORATORYCLIA [id number] [place] [address] [place] Potassium [Moles/Vol] 3.9 mmol/L Normal 3.7-5.1 [facility] Comment on above: Order Comment: Speci men Type: BLOOD SPECIMENOrdering Facility: [facility] Address: [address] [place] [address] Performed By: #### 2 4321-2, 34545-4, 68758-3, 2776- ####[facility] LABORATORYCLIA [id number] [place] [id number] [place] Sodium [Moles/Vol] 140 mmol/L Normal 136-144 [facility] Comment on above: Order Comment: Speci men Type: BLOOD SPECIMENOrdering Facility: [facility] Address: [address] [place] [address] Performed By: #### 2 4321-2, 05763-3, 67928-5, 2777-1 ####[facility] LABORATORYCLIA [id number] [place] [address] [place] [facility] Urea nitrogen [Mass/Vol] 19 mg/dL Normal 7-21 [facility] Comment on above: Order Comment: Speci men Type: BLOOD SPECIMENOrdering Facility: [facility] Address: [address] [place] [address] Performed By: #### 2 4321-2, 11693-5, 17739-1, 277- ####[facility] LABORATORYCLIA [id number] [address] [place] [facility] CBC panel Auto (Bld)on 04-19 Erythrocyte distribution width (RBC) [Ratio] 12.5 % Normal 11.5-15.0 [facility] Comment on above: Order Comment: Speci men Type: BLOOD SPECIMENOrdering Facility: [facility] Address: [address] [place] [address] Performed By: #### 5 8410-2 ####[facility] LABORATORYCLIA [id number] [address] [place] [facility] Hematocrit (Bld) [Volume fraction] 43.1 % Normal 36.0-46.0 [facility] Comment on above: Order Comment: Speci men Type: BLOOD SPECIMENOrdering Facility: [facility] Address: [address] [place] [address] Performed By: #### 5 8410-2 ####[facility] LABORATORYCLIA [id number] [address] [place] Hemoglobin (Bld) [Mass/Vol] 14.9 g/dL Normal 11.5-15.5 [facility] Comment on above: Order Comment: Speci men Type: BLOOD SPECIMENOrdering Facility: [facility] Address: [address] [place] [address] Performed By: #### 5 8410-2 ####[facility] LABORATORYCLIA [id number] [address] [place] MCH (RBC) [Entitic mass] 31.6 pg Normal 26.0-34.0 [facility] Comment on above: Order Comment: Speci men Type: BLOOD SPECIMENOrdering Facility: [facility] Address: [address] [place] [address] Performed By: #### 5 8410-2 ####[facility] LABORATORYCLIA [id number] [address] [place] MCHC (RBC) [Mass/Vol] 34.6 g/dL Normal 30.5-36.0 [facility] Comment on above: Order Comment: Speci men Type: BLOOD SPECIMENOrdering Facility: [facility] Address: [address] [place] [address] Performed By: #### 5 8410-2 ####[facility] LABORATORYCLIA [id number] [address] [place] MCV (RBC) [Entitic vol] 91.3 fL Normal 80.0-100.0 [facility] Comment on above: Order Comment: Speci men Type: BLOOD SPECIMENOrdering Facility: [facility] Address: [address] [place] [address] Performed By: #### 5 8410-2 ####[facility] LABORATORYCLIA [id number] [address] [place] Nucleated RBC (Bld) [#/Vol] 10*3/uL Normal <0.01 [facility] Comment on above: Order Comment: Speci men Type: BLOOD SPECIMENOrdering Facility: [facility] Address: [address] [place] [address] Performed By: #### 5 8410-2 ####[facility] LABORATORYCLIA [id number] [address] [place] Platelet mean volume (Bld) [Entitic vol] 9.3 fL Normal 9.0-12.7 [facility] Comment on above: Order Comment: Speci men Type: BLOOD SPECIMENOrdering Facility: [facility] Address: [address] [place] [address] Performed By: #### 5 8410-2 ####[facility] LABORATORYCLIA [id number] [place] [address] [place] Platelets (Bld) [#/Vol] 321 10*3/uL Normal 150-400 [facility] Comment on above: Order Comment: Speci men Type: BLOOD SPECIMENOrdering Facility: [facility] Address: [address] [place] [address] Performed By: #### 5 8410-2 ####[facility] LABORATORYCLIA [id number] [place] [address] [place] RBC (Bld) [#/Vol] 4.72 10*6/uL Normal 3.90-5.20 [facility] Comment on above: Order Comment: Speci men Type: BLOOD SPECIMENOrdering Facility: [facility] Address: [address] [place] [address] Performed By: #### 5 8410-2 ####[facility] LABORATORYCLIA [id number] [address] OF [facility] WBC (Bld) [#/Vol] 8.62 10*3/uL Normal 3.70-11.00 [facility] Comment on above: Order Comment: Speci men Type: BLOOD SPECIMENOrdering Facility: [facility] Address: [address] [place] [address] Performed By: #### 5 8410-2 ####[facility] LABORATORYCLIA [id number] [address] [place] BRAIN ATTACK WO IVCONon 0 04-19-2024 CT BRAIN ATTACK WO IVCON Invalid Interpretation Code [facility] CT BRAIN WO IVCONon 04-19-[address] BRAIN WO IVCON Normal [facility] CTA HEAD W IVCONon 4 CTA HEAD W IVCON Normal [facility] CTA NECK W IVCONon 4 CTA NECK W IVCON Normal [facility] ED NOTEon 04-19-2024 ED NOTE HNO ID: [id number] Author: SONYA VILA RN Service: Emergency Medicine Author Type: Registered Nurse Type: ED Notes Filed: 04/19/2024 16:36 Note Text: Dr Shen notified that patient's BP has dropped to 100/80; see orders. Normal [facility] ED NOTE HNO ID: [id number] Author: SONYA VILA RN Service: Emergency Medicine Author Type: Registered Nurse Type: ED Notes Filed: 04/19/2024 16:32 Note Text: Pt c/o sudden onset dizziness; Lisa Petit, DRAWING TENDER at beside and aware; see orders. Normal [facility] ED NOTE HNO ID: [id number] Author: SONYA VILA RN Service: Emergency Medicine Author Type: Registered Nurse Type: ED Notes Filed: 04/19/2024 15:34 Note Text: 20 mg TNK given IV at this time. Normal [facility] ED NOTE Normal [facility] ED NOTE Normal [facility] ED PROV NOTEon 04-19-2024 ED PROV NOTE Normal [facility] ED PROV NOTE Normal [facility] HIGH SENSITIVITY TROPONIN To n 04-19-2024 Troponin T.cardiac High sensitivity method [Mass/Vol] 8 ng/L Normal <12 [facility] Comment on above: Order Comment: Speci men Type: BLOOD SPECIMENOrdering Facility: [facility] Address: [address] [place] [address] Performed By: #### H STNT ####[facility] LABORATORYCLIA [id number] [address] STATES OF [facility] HISTORY PHYSICALon HISTORY PHYSICAL Normal [facility] Hepatic function 2000 panelo n 04-19-2024 Albumin [Mass/Vol] 4.3 g/dL Normal 3.9-4.9 [facility] Comment on above: Order Comment: Speci peter Type: BLOOD SPECIMENOrdering Facility: [facility] Address: [address] [place] [address] Performed By: #### 2 4321-2, 69771-6, 83590-7, 2777-1 ####[facility] LABORATORYCLIA [id number] [address] ALP [Catalytic activity/Vol] 132 U/L High 34-123 [facility] Comment on above: Order Comment: Speci men Type: BLOOD SPECIMENOrdering Facility: [facility] Address: [address] [place] [address] Performed By: #### 2 4321-2, 00381-4, , 2776-08 ####[facility] LABORATORYCLIA [id number] [address] STATES OF [facility] ALT With P-5'-P [Catalytic activity/Vol] 24 U/L Normal 7-38 [facility] Comment on above: Order Comment: Speci men Type: BLOOD SPECIMENOrdering Facility: [facility] Address: [address] [place] [address] Performed By: #### 2 4321-2, 82949-0, , 2776-08 ####[facility] LABORATORYCLIA [id number] [address] OF [facility] AST With P-5'-P [Catalytic activity/Vol] 23 U/L Normal 13-35 [facility] Comment on above: Order Comment: Speci men Type: BLOOD SPECIMENOrdering Facility: [facility] Address: [address] [place] [address] Performed By: #### 2 4321-2, 56938-4, , 2776-08 ####[facility] LABORATORYCLIA [id number] [address] [place] Bilirubin [Mass/Vol] 0.5 mg/dL Normal 0.2-1.3 [facility] Comment on above: Order Comment: Speci men Type: BLOOD SPECIMENOrdering Facility: [facility] Address: [address] [place] [address] Performed By: #### 2 4321-2, 07456-6, , 2776-08 ####[facility] LABORATORYCLIA [id number] [address] Bilirubin.conjugated [Mass/Vol] mg/dL Normal <0.2 [facility] Comment on above: Order Comment: Speci peter Type: BLOOD SPECIMENOrdering Facility: [facility] Address: [address] [place] [address] Performed By: #### 2 4321-2, 78168-0, , 2776-08 ####[facility] LABORATORYCLIA [id number] [place] [address] [place] Protein [Mass/Vol] 6.6 g/dL Normal 6.3-8.0 [facility] Comment on above: Order Comment: Prince peter Type: BLOOD SPECIMENOrdering Facility: [facility] Address: [address] [place], [place] [address] Performed By: #### 2 4321-2, 60934-2, , 2776-08 ####[facility] LABORATORYCLIA [id number] [address] [place] Magnesium SerPl-mCncon 04-19 Magnesium [Mass/Vol] 2.1 mg/dL Normal 1.7-2.3 [facility] Comment on above: Order Comment: Prince peter Type: BLOOD SPECIMENOrdering Facility: [facility] Address: [address] [place] [address] Performed By: #### 2 4321-2, 87085-3, , 2776-08 ####[facility] LABORATORYCLIA [id number] [address] [place] PT panel Coag (PPP)on 2023 INR Coag (PPP) [Relative time] 1.0 {INR} Normal 0.9-1.3 [facility] Comment on above: Order Comment: [facility] Type: BLOOD SPECIMENOrdering Facility: [facility] Address: [address] [place] [address] Result Comment: [place] min K Antagonist (VKA) Therapeutic Range: INR 2 to 3 (Target INR of 2.5)Note: For patients treated with VKA drugs, such as warfarin, the [employer] 2012 Guideline recommends [...] of 3).Tommy GH, et al. Chest 2012, 141:7S-47SNishimura RA, et al. [facility] 2017, 70: 252-289 Performed By: #### 3 4528-0, 97936-0 ####[facility] LABORATORYCLIA [id number] [place] [address] [place] PT Coag (PPP) [Time] 10.3 s Normal 9.7-13.0 [facility] Comment on above: Order Comment: Speci men Type: BLOOD SPECIMENOrdering Facility: [facility] Address: [address] [place] [address] Performed By: #### 3 4528-0, 54733-0 ####[facility] LABORATORYCLIA [id number] [place] [address] [place] Phosphate SerPl-mCncon 04-19 Phosphate [Mass/Vol] 3.1 mg/dL Normal 2.7-4.8 [facility] Comment on above: Order Comment: Speci men Type: BLOOD SPECIMENOrdering Facility: [facility] Address: [address] [place] [address] Performed By: #### 2 4321-2, 54393-9, 16117-0, 2777-1 ####[facility] LABORATORYCLIA [id number] [place] [address] [place] STAPHYLOCOCCUS AUREUS AND MR SA SCREEN, PCR, NASALon 04-19-2024 S. aureus and MRSA panel KRISTOFER+probe (Nose) Methicillin-SUSCEPTIBLE Staphylococcus aureus Detected Abnormal Not Detected [facility] Comment on above: Order Comment: Speci men Type: SWABOrdering Facility: [facility] Address: [address] [place] [address] [place] [address] Performed By: #### S APCR ####[facility] LABORATORYCLIA [id number] [place] [id number] [place] aPTT PPPon 04-19-2024 aPTT Coag (PPP) [Time] 24.2 s Normal 23.0-32.4 [facility] Comment on above: Order Comment: Speci men Type: BLOOD SPECIMENOrdering Facility: [facility] Address: [address] [place] [address] Performed By: #### 3 4528-0, 63380-4 ####[facility] LABORATORYCLIA [id number] [address] [place] Absolute lymphocyte countOrd ered By: Markos Chacon on 12-12-2023 Lymphocytes Auto (Unsp spec) [#/Vol] 1.24 10*3/uL 0.83-4.51 [facility] Automated lymphocyte count a s percentage of total leukocytesOrdered By: Markos Chacon on 12-12-2023 Lymphocytes/100 WBC Auto (Unsp spec) 17.5 % 19-41 [facility] Basophil percentageOrdered B y: Markos Chacon on 12-12-2023 Basophils/100 WBC (Bld) 1.1 % 0-1 [facility] Chloride [Moles/Vol] 105 mmol/L 98-107 [facility] Eosinophils/100 WBC (Bld) 3.0 % 0-5 [facility] Glucose [Mass/Vol] 90 mg/dL 74-106 [facility] Hemoglobin (Bld) [Mass/Vol] 14.8 g/dL 12.0-15.0 [facility] Monocytes/100 WBC (Bld) 9.9 % 0-10 [facility] Neutrophils (Bld) [#/Vol] 4.8 10*3/uL 2.0-7.7 [facility] Neutrophils/100 WBC (Bld) 68.1 % 47-70 [facility] Potassium [Moles/Vol] 3.7 mmol/L 3.5-5.1 [facility] Sodium [Moles/Vol] 141 mmol/L 136-145 [facility] WBC (Bld) [#/Vol] 7.1 10*3/uL 4.4-11.0 [facility] Determination of erythrocyte mean corpuscular volume (MCV)Ordered By: Markos Chacon on 12-12-2023 MCV (RBC) [Entitic vol] 92.4 fL 81-99 [facility] Erythrocyte distribution wid th ratioOrdered By: Markos Chacon on 12-12-2023 Erythrocyte distribution width (RBC) [Ratio] 12.9 % 11.6-14.6 [facility] Erythrocyte distribution wid th standard deviationOrdered By: Markos Chacon on 12-12-2023 Erythrocyte distribution width (RBC) [Entitic vol] 43.8 fL 35.1-43.9 [facility] Hematocrit Auto (Bld) [Volum e fraction]Ordered By: Markos Chacon on 12-12-2023 Hematocrit (Bld) [Volume fraction] 43.8 % 37-47 [facility] Immature granulocytes/100 WB C Auto (Bld)Ordered By: Markos Chacon on 12-12-2023 Immature granulocytes/100 WBC (Bld) 0.400 % 0.0-0.9 [facility] Comment on above: IG% - Immature Granu locytes (promyelocytes, myelocytes and metamyelocytes) > 1% indicates that a LEFT SHIFT is Present. Laboratory - Chemistry and C hemistry - challengeOrdered By: Markos Chacon on 12-12-2023 CO2 [Moles/Vol] 28.0 mmol/L 21.0-32.0 [facility] Urea nitrogen/Creatinine [Mass ratio] 26.9 mg/mg 10-20 [facility] Laboratory - Hematology and Cell countsOrdered By: Markos Chacon on 12-12-2023 MCH (RBC) [Entitic mass] 31.2 pg 27.0-32.0 [facility] MCHC (RBC) [Mass/Vol] 33.8 g/dL 32-36 [facility] Nucleated RBC/100 WBC (Bld) [Ratio] 0 % 0-5 [facility] Platelet mean volume (Bld) [Entitic vol] 9.5 fL 6.2-12.0 [facility] Platelets (Bld) [#/Vol] 268 10*3/uL 150-450 [facility] Laboratory - Microbiology an d Antimicrobial susceptibilityOrdered By: Markos Chacon on 12-12-2023 SARS-CoV-2 (COVID-19) RNA KRISTOFER+probe Ql (Unsp spec) [facility] No Panel InformationOrdered By: Markos Chacon on 12-12-2023 D-Dimer Quantitative (PE/DVT) 0.38 FEU/ug/m 0.27-0.49 [facility] Comment on above: NORMAL D-Dimer level (<0.50) indicates no DVT or PE. Estimated Creatinine Clearance Calc 53.23 ml/min [facility] Estimated GFR (MDRD) Amer 73 mL/min >60 [facility] Comment on above: GFR Calc Estimated GFR (MDRD) Non-Af Amer 61 mL/min >60 [facility] Comment on above: Non- GFR Calc Troponin I High Sensitivity 4 pg/mL 3.0-54.0 [facility] Comment on above: Please Note: New Macy t Units and Gender Specific Reference Ranges. For more information see Policy Stat Procedure Mccammon High Sensitivity Troponin (TNIH) and attachments. RBC Auto (Bld) [#/Vol]Ordere d By: Markos Chacon on 12-12-2023 RBC (Bld) [#/Vol] 4.74 10*6/uL 4.2-5.4 [facility] Serum or plasma calcium giovany urement (mass/volume)Ordered By: Markos Chacon on 12-12-2023 Calcium [Mass/Vol] 9.2 mg/dL 8.5-10.1 [facility] Serum or plasma creatinine m easurement (mass/volume)Ordered By: Markos Chacon on 12-12-2023 Creatinine [Mass/Vol] 0.97 mg/dL 0.55-1.02 [facility] Comment on above: The validity of the calculated GFR & GFRAA in patients over 70 years has not been determined. Clinical correlation is essential. Serum or plasma urea nitroge n measurement (mass/volume)Ordered By: Markos Chacon on 12-12-2023 Urea nitrogen [Mass/Vol] 26 mg/dL 7-18 [facility] Thin prep Papanicolaou smear with manual screeningOrdered By: Markos Chacon on 12-12-2023 Thin prep Papanicolaou smear with manual screening 8 5-15 [facility] Absolute lymphocyte countOrd ered By: Verónica Lopez on 09-23-2023 Lymphocytes Auto (Unsp spec) [#/Vol] 1.39 10*3/uL 0.83-4.51 [facility] Automated lymphocyte count a s percentage of total leukocytesOrdered By: Verónica Lopez on 09-23-2023 Lymphocytes/100 WBC Auto (Unsp spec) 20.7 % 19-41 [facility] Basophil percentageOrdered B y: Verónica Lopez on 09-23-2023 Basophils/100 WBC (Bld) 1.2 % 0-1 [facility] Bilirubin [Mass/Vol] 0.70 mg/dL 0.20-1.00 [facility] Comment on above: For patients on eltr ombopag therapy, use of Dimension Mccammon TBIL is not recommended. Chloride [Moles/Vol] 109 mmol/L 98-107 [facility] Eosinophils/100 WBC (Bld) 3.4 % 0-5 [facility] Glucose [Mass/Vol] 97 mg/dL 74-106 [facility] Hemoglobin (Bld) [Mass/Vol] 14.9 g/dL 12.0-15.0 [facility] Monocytes/100 WBC (Bld) 8.2 % 0-10 [facility] Neutrophils (Bld) [#/Vol] 4.4 10*3/uL 2.0-7.7 [facility] Neutrophils/100 WBC (Bld) 66.1 % 47-70 [facility] Potassium [Moles/Vol] 3.7 mmol/L 3.5-5.1 [facility] Protein [Mass/Vol] 7.5 g/dL 6.4-8.2 [facility] Sodium [Moles/Vol] 140 mmol/L 136-145 [facility] WBC (Bld) [#/Vol] 6.7 10*3/uL 4.4-11.0 [facility] Determination of erythrocyte mean corpuscular volume (MCV)Ordered By: Verónica Lopez on 09-23-2023 MCV (RBC) [Entitic vol] 92.2 fL 81-99 [facility] Erythrocyte distribution wid th ratioOrdered By: Verónica Lopez on 09-23-2023 Erythrocyte distribution width (RBC) [Ratio] 12.4 % 11.6-14.6 [facility] Erythrocyte distribution wid th standard deviationOrdered By: Verónica Lopez on 09-23-2023 Erythrocyte distribution width (RBC) [Entitic vol] 41.4 fL 35.1-43.9 [facility] Hematocrit Auto (Bld) [Volum e fraction]Ordered By: Verónica Lopez on 09-23-2023 Hematocrit (Bld) [Volume fraction] 44.7 % 37-47 [facility] Immature granulocytes/100 WB C Auto (Bld)Ordered By: Verónica Lopez on 09-23-2023 Immature granulocytes/100 WBC (Bld) 0.400 % 0.0-0.9 [facility] Comment on above: IG% - Immature Granu locytes (promyelocytes, myelocytes and metamyelocytes) > 1% indicates that a LEFT SHIFT is Present. Laboratory - Chemistry and C hemistry - challengeOrdered By: Verónica Lopez on 09-23-2023 Albumin/Globulin [Mass ratio] 1.1 {ratio} 0.9-2.4 [facility] ALP [Catalytic activity/Vol] 137 U/L 45-117 [facility] ALT [Catalytic activity/Vol] 29 U/L 13-56 [facility] CO2 [Moles/Vol] 27.0 mmol/L 21.0-32.0 [facility] Globulin (S) [Mass/Vol] 3.5 g/dL 2.2-4.2 [facility] Urea nitrogen/Creatinine [Mass ratio] 13.6 mg/mg 10-20 [facility] Laboratory - Hematology and Cell countsOrdered By: Verónica Lopez on 09-23-2023 MCH (RBC) [Entitic mass] 30.7 pg 27.0-32.0 [facility] MCHC (RBC) [Mass/Vol] 33.3 g/dL 32-36 [facility] Nucleated RBC/100 WBC (Bld) [Ratio] 0 % 0-5 [facility] Platelets (Bld) [#/Vol] 293 10*3/uL 150-450 [facility] No Panel InformationOrdered By: Verónica Lopez on 09-23-2023 Estimated Creatinine Clearance Calc 49.72 ml/min [facility] Estimated GFR (MDRD) Amer 58 mL/min >60 [facility] Comment on above: GFR Calc Estimated GFR (MDRD) Non-Af Amer 48 mL/min >60 [facility] Comment on above: Non- GFR Calc Platelet mean volume Doug-Ec ker (Bld) [Entitic vol]Ordered By: Verónica Lopez on 09-23-2023 Platelet mean volume (Bld) [Entitic vol] 9.7 fL 6.2-12.0 [facility] RBC Auto (Bld) [#/Vol]Ordere d By: Verónica Lopez on 09-23-2023 RBC (Bld) [#/Vol] 4.85 10*6/uL 4.2-5.4 [facility] Serum or plasma calcium giovany urement (mass/volume)Ordered By: Verónica Lopez on 09-23-2023 Calcium [Mass/Vol] 9.8 mg/dL 8.5-10.1 [facility] Serum or plasma creatinine m easurement (mass/volume)Ordered By: Verónica Lopez on 09-23-2023 Creatinine [Mass/Vol] 1.18 mg/dL 0.55-1.02 [facility] Comment on above: The validity of the calculated GFR & GFRAA in patients over 70 years has not been determined. Clinical correlation is essential. Serum or plasma urea nitroge n measurement (mass/volume)Ordered By: Verónica Lopez on 09-23-2023 Urea nitrogen [Mass/Vol] 16 mg/dL 7-18 [facility] Thin prep Papanicolaou smear with manual screeningOrdered By: Verónica Lopez on 09-23-2023 Thin prep Papanicolaou smear with manual screening 4.0 g/dL 3.2-5.0 [facility] Thin prep Papanicolaou smear with manual screening 16 U/L 15-37 [facility] Thin prep Papanicolaou smear with manual screening 4 5-15 [facility] Basophil percentageOrdered B y: Ashli Rosado on 08-26-2023 Chloride [Moles/Vol] 105 mmol/L 98-107 [facility] Glucose [Mass/Vol] 83 mg/dL 74-106 [facility] Potassium [Moles/Vol] 3.8 mmol/L 3.5-5.1 [facility] Sodium [Moles/Vol] 140 mmol/L 136-145 [facility] Laboratory - Chemistry and C hemistry - challengeOrdered By: Ashli Rosado on 08-26-2023 CO2 [Moles/Vol] 30.0 mmol/L 21.0-32.0 [facility] Urea nitrogen/Creatinine [Mass ratio] 23.3 mg/mg 10-20 [facility] No Panel InformationOrdered By: Ashli Rosado on 08-26-2023 Estimated GFR (MDRD) Amer 60 mL/min >60 [facility] Comment on above: GFR Calc Estimated GFR (MDRD) Non-Af Amer 49 mL/min >60 [facility] Comment on above: Non- GFR Calc Serum or plasma calcium giovany urement (mass/volume)Ordered By: Ashli Rosado on 08-26-2023 Calcium [Mass/Vol] 9.7 mg/dL 8.5-10.1 [facility] Serum or plasma creatinine m easurement (mass/volume)Ordered By: Ashli Rosado on 08-26-2023 Creatinine [Mass/Vol] 1.16 mg/dL 0.55-1.02 [facility] Comment on above: The validity of the calculated GFR & GFRAA in patients over 70 years has not been determined. Clinical correlation is essential. Serum or plasma urea nitroge n measurement (mass/volume)Ordered By: Aslhi Rosado on 08-26-2023 Urea nitrogen [Mass/Vol] 27 mg/dL 7-18 [facility] Thin prep Papanicolaou smear with manual screeningOrdered By: Ashli Rosado on 08-26-2023 Thin prep Papanicolaou smear with manual screening 5 5-15 [facility] Absolute lymphocyte countOrd ered By: Loan Dias on 07-29-2023 Lymphocytes Auto (Unsp spec) [#/Vol] 2.14 10*3/uL 0.83-4.51 [facility] Basophil percentageOrdered B y: Loan Dias on 07-29-2023 Basophils/100 WBC (Bld) 1.0 % 0-1 [facility] Bilirubin [Mass/Vol] 0.60 mg/dL 0.20-1.00 [facility] Comment on above: For patients on eltr ombopag therapy, use of Dimension Mccammon TBIL is not recommended. Chloride [Moles/Vol] 105 mmol/L 98-107 [facility] Cholesterol [Mass/Vol] 196 mg/dL <200 [facility] Comment on above: <200 mg/dL Desirable 200-240 mg/dL Borderline >240 mg/dL High Risk Eosinophils/100 WBC (Bld) 2.3 % 0-5 [facility] Glucose [Mass/Vol] 98 mg/dL 74-106 [facility] Neutrophils (Bld) [#/Vol] 4.5 10*3/uL 2.0-7.7 [facility] Neutrophils/100 WBC (Bld) 59.2 % 47-70 [facility] Potassium [Moles/Vol] 3.8 mmol/L 3.5-5.1 [facility] Protein [Mass/Vol] 7.7 g/dL 6.4-8.2 [facility] Sodium [Moles/Vol] 139 mmol/L 136-145 [facility] Triglyceride [Mass/Vol] 128 mg/dL <199 [facility] Comment on above: The drugs N-Acetylcy steine and Metamizole may falsely depress this assay.Serum Triglycerides Reference Interval Normal <150 mg/dL Borderline high 150 - 199 mg/dL High 200 - 499 mg/dL Very High > or = 500 mg/dL WBC (Bld) [#/Vol] 7.7 10*3/uL 4.4-11.0 [facility] Blood erythrocytes count (nu mber/volume)Ordered By: Loan Dias on 07-29-2023 RBC (Bld) [#/Vol] 5.29 10*6/uL 4.2-5.4 [facility] Blood hemoglobin measurement (mass/volume)Ordered By: Loan Dias on 07-29-2023 Hemoglobin (Bld) [Mass/Vol] 16.2 g/dL 12.0-15.0 [facility] Blood lymphocytes/100 leukoc ytesOrdered By: Loan Dias on 07-29-2023 Lymphocytes/100 WBC (Bld) 27.9 % 19-41 [facility] Blood monocytes/100 leukocyt esOrdered By: Loan Dias on 07-29-2023 Monocytes/100 WBC (Bld) 9.1 % 0-10 [facility] Blood platelet mean volumeOr dered By: Loan iDas on 07-29-2023 Platelet mean volume (Bld) [Entitic vol] 9.7 fL 6.2-12.0 [facility] Determination of erythrocyte mean corpuscular volume (MCV)Ordered By: Loan Dias on 07-29-2023 MCV (RBC) [Entitic vol] 93.6 fL 81-99 [facility] Hematocrit Auto (Bld) [Volum e fraction]Ordered By: Loan Dias on 07-29-2023 Hematocrit (Bld) [Volume fraction] 49.5 % 37-47 [facility] Laboratory - Chemistry and C hemistry - challengeOrdered By: Loan Dias on 07-29-2023 ALP [Catalytic activity/Vol] 131 U/L 45-117 [facility] ALT [Catalytic activity/Vol] 60 U/L 13-56 [facility] CO2 [Moles/Vol] 27.0 mmol/L 21.0-32.0 [facility] Globulin (S) [Mass/Vol] 3.4 g/dL 2.2-4.2 [facility] Urea nitrogen/Creatinine [Mass ratio] 13.9 mg/mg 10-20 [facility] Laboratory - Hematology and Cell countsOrdered By: Loan Dias on 07-29-2023 Erythrocyte distribution width (RBC) [Entitic vol] 45.1 fL 35.1-43.9 [facility] Erythrocyte distribution width (RBC) [Ratio] 13.2 % 11.6-14.6 [facility] Immature granulocytes/100 WBC (Bld) 0.500 % 0.0-0.9 [facility] Comment on above: IG% - Immature Granu locytes (promyelocytes, myelocytes and metamyelocytes) > 1% indicates that a LEFT SHIFT is Present. MCH (RBC) [Entitic mass] 30.6 pg 27.0-32.0 [facility] Nucleated RBC/100 WBC (Bld) [Ratio] 0 % 0-5 [facility] ([facility]) [Mass/Vol]Or dered By: Loan Dias on 07-29-2023 MCHC (RBC) [Mass/Vol] 32.7 g/dL 32-36 [facility] No Panel InformationOrdered By: Loan Dias on 07-29-2023 Estimated GFR (MDRD) Amer 70 mL/min >60 [facility] Comment on above: GFR Calc Estimated GFR (MDRD) Non-Af Amer 58 mL/min >60 [facility] Comment on above: Non- GFR Calc Thyroid Stimulating Hormone (TSH) 3.71 uIU/mL 0.358-3.74 [facility] Platelets bldOrdered By: Cirilo Dias on 07-29-2023 Platelets (Bld) [#/Vol] 361 10*3/uL 150-450 [facility] Serum or plasma albumin giovany urement (mass/volume)Ordered By: Loan Dias on 07-29-2023 Albumin [Mass/Vol] 4.3 g/dL 3.2-5.0 [facility] Serum or plasma albumin/glob ulin mass ratioOrdered By: Loan Dias on 07-29-2023 Albumin/Globulin [Mass ratio] 1.3 {ratio} 0.9-2.4 [facility] Serum or plasma calcium giovany urement (mass/volume)Ordered By: Loan Dias on 07-29-2023 Calcium [Mass/Vol] 9.9 mg/dL 8.5-10.1 [facility] Serum or plasma cholesterol in HDL measurement (mass/volume)Ordered By: Loan Dias on 07-29-2023 Cholesterol in HDL [Mass/Vol] 52 mg/dL >40 [facility] Comment on above: The drugs N-Acetylcy steine and Metamizole may falsely depress this assay. Reference Range HDL <40 mg/dL Low HDL Cholesterol HDL >or= 60 mg/dL High HDL Cholesterol Serum or plasma cholesterol in VLDL measurement (mass/volume)Ordered By: Loan Dias on 07-29-2023 Cholesterol in VLDL [Mass/Vol] 26 mg/dL 5-40 [facility] Serum or plasma creatinine m easurement (mass/volume)Ordered By: Loan Dias on 07-29-2023 Creatinine [Mass/Vol] 1.01 mg/dL 0.55-1.02 [facility] Comment on above: The validity of the calculated GFR & GFRAA in patients over 70 years has not been determined. Clinical correlation is essential. Serum or plasma low density lipoprotein (LDL) cholesterol measurement (mass/volume)Ordered By: Loan Dias on 07-29-2023 Cholesterol in LDL [Mass/Vol] 118 mg/dL 0-130 [facility] Serum or plasma urea nitroge n measurement (mass/volume)Ordered By: Loan Dias on 07-29-2023 Urea nitrogen [Mass/Vol] 14 mg/dL 7-18 [facility] Thin prep Papanicolaou smear with manual screeningOrdered By: Loan Dias on 07-29-2023 Thin prep Papanicolaou smear with manual screening 33 U/L 15-37 [facility] Thin prep Papanicolaou smear with manual screening 7 5-15 [facility] Basophil percentageOrdered B y: Dia Tobin on 03-14-2023 Creatinine [Mass/Vol] 1.2 mg/dL 0.55-1.02 [facility] Laboratory - Chemistry and C hemistry - challengeOrdered By: Dia Tobin on 03-14-2023 GFR/1.73 sq M.predicted among non-blacks MDRD (S/P/Bld) [Vol rate/Area] 49.0000 mL/min/{1.73_m2} >60 [facility] Absolute lymphocyte countOrd ered By: Verónica Lopez on 11-05-2022 Lymphocytes Auto (Unsp spec) [#/Vol] 1.50 10*3/uL 0.83-4.51 [facility] Basophil percentageOrdered B y: Verónica Lopez on 11-05-2022 Basophils/100 WBC (Bld) 0.9 % 0-1 [facility] Bilirubin [Mass/Vol] 0.40 mg/dL 0.20-1.00 [facility] Comment on above: For patients on eltr ombopag therapy, use of Dimension Mccammon TBIL is not recommended. Chloride [Moles/Vol] 108 mmol/L 98-107 [facility] Eosinophils/100 WBC (Bld) 2.5 % 0-5 [facility] Glucose [Mass/Vol] 104 mg/dL 74-106 [facility] Comment on above: Fasting Glucose resu lt from 100 to 125 mg/dL suggests IMPAIRED HOMEOSTASIS per A.D.A. criteria. Neutrophils (Bld) [#/Vol] 4.5 10*3/uL 2.0-7.7 [facility] Neutrophils/100 WBC (Bld) 66.8 % 47-70 [facility] Potassium [Moles/Vol] 3.8 mmol/L 3.5-5.1 [facility] Protein [Mass/Vol] 7.4 g/dL 6.4-8.2 [facility] Sodium [Moles/Vol] 143 mmol/L 136-145 [facility] WBC (Bld) [#/Vol] 6.8 10*3/uL 4.4-11.0 [facility] Blood erythrocytes count (nu mber/volume)Ordered By: Verónica Lopez on 11-05-2022 RBC (Bld) [#/Vol] 5.04 10*6/uL 4.2-5.4 [facility] Blood hemoglobin measurement (mass/volume)Ordered By: Verónica Lopez on 11-05-2022 Hemoglobin (Bld) [Mass/Vol] 15.5 g/dL 12.0-15.0 [facility] Blood lymphocytes/100 leukoc ytesOrdered By: Verónica Lopez on 11-05-2022 Lymphocytes/100 WBC (Bld) 22.2 % 19-41 [facility] Blood monocytes/100 leukocyt esOrdered By: Verónica Lopez on 11-05-2022 Monocytes/100 WBC (Bld) 7.0 % 0-10 [facility] Blood platelet mean volumeOr dered By: Verónica Lopez on 11-05-2022 Platelet mean volume (Bld) [Entitic vol] 9.3 fL 6.2-12.0 [facility] Determination of erythrocyte mean corpuscular volume (MCV)Ordered By: Verónica Lopez on 11-05-2022 MCV (RBC) [Entitic vol] 93.5 fL 81-99 [facility] Hematocrit Auto (Bld) [Volum e fraction]Ordered By: Verónica Lopez on 11-05-2022 Hematocrit (Bld) [Volume fraction] 47.1 % 37-47 [facility] Laboratory - Chemistry and C hemistry - challengeOrdered By: Verónica Lopez on 11-05-2022 ALP [Catalytic activity/Vol] 108 U/L 45-117 [facility] ALT [Catalytic activity/Vol] 26 U/L 13-56 [facility] CO2 [Moles/Vol] 28.0 mmol/L 21.0-32.0 [facility] Globulin (S) [Mass/Vol] 3.2 g/dL 2.2-4.2 [facility] Urea nitrogen/Creatinine [Mass ratio] 20.2 mg/mg 10-20 [facility] Laboratory - Hematology and Cell countsOrdered By: Verónica Lopez on 11-05-2022 Erythrocyte distribution width (RBC) [Entitic vol] 44.3 fL 35.1-43.9 [facility] Erythrocyte distribution width (RBC) [Ratio] 13.1 % 11.6-14.6 [facility] Immature granulocytes/100 WBC (Bld) 0.600 % 0.0-0.9 [facility] Comment on above: IG% - Immature Granu locytes (promyelocytes, myelocytes and metamyelocytes) > 1% indicates that a LEFT SHIFT is Present. MCH (RBC) [Entitic mass] 30.8 pg 27.0-32.0 [facility] Nucleated RBC/100 WBC (Bld) [Ratio] 0 % 0-5 [facility] MCHC Auto (RBC) [Mass/Vol]Or dered By: Verónica Lopez on 11-05-2022 MCHC (RBC) [Mass/Vol] 32.9 g/dL 32-36 [facility] No Panel InformationOrdered By: Verónica Lopez on 11-05-2022 Estimated Creatinine Clearance Calc 47.38 ml/min [facility] Estimated GFR (MDRD) Amer 76 mL/min >60 [facility] Comment on above: GFR Calc Estimated GFR (MDRD) Non-Af Amer 63 mL/min >60 [facility] Comment on above: Non- GFR Calc Platelets bldOrdered By: Erica Lopez on 11-05-2022 Platelets (Bld) [#/Vol] 318 10*3/uL 150-450 [facility] Serum or plasma albumin giovany urement (mass/volume)Ordered By: Verónica Lopez on 11-05-2022 Albumin [Mass/Vol] 4.2 g/dL 3.2-5.0 [facility] Serum or plasma albumin/glob ulin mass ratioOrdered By: Verónica Lopez on 11-05-2022 Albumin/Globulin [Mass ratio] 1.3 {ratio} 0.9-2.4 [facility] Serum or plasma calcium giovany urement (mass/volume)Ordered By: Verónica Lopez on 11-05-2022 Calcium [Mass/Vol] 9.6 mg/dL 8.5-10.1 [facility] Serum or plasma creatinine m easurement (mass/volume)Ordered By: Verónica Lopez on 11-05-2022 Creatinine [Mass/Vol] 0.94 mg/dL 0.55-1.02 [facility] Comment on above: The validity of the calculated GFR & GFRAA in patients over 70 years has not been determined. Clinical correlation is essential. Serum or plasma urea nitroge n measurement (mass/volume)Ordered By: Verónica Lopez on 11-05-2022 Urea nitrogen [Mass/Vol] 19 mg/dL 7-18 [facility] Thin prep Papanicolaou smear with manual screeningOrdered By: Verónica Lopez on 11-05-2022 Thin prep Papanicolaou smear with manual screening 18 U/L 15-37 [facility] Thin prep Papanicolaou smear with manual screening 7 5-15 [facility] Absolute lymphocyte counton 04-25-2022 Lymphocytes Auto (Unsp spec) [#/Vol] 1.41 10*3/uL 0.83-4.51 [facility] Work Phone: Basophil percentageon 2021 Basophils/100 WBC (Bld) 1.0 % 0-1 [facility] Work Phone: Bilirubin [Mass/Vol] 0.40 mg/dL 0.20-1.00 [facility] Work Phone: Comment on above: For patients on eltr ombopag therapy, use of Dimension Mccammon TBIL is not recommended. Chloride [Moles/Vol] 110 mmol/L 98-107 [facility] Work [facility]: Eosinophils/100 WBC (Bld) 3.6 % 0-5 [facility] Work Phone: Glucose [Mass/Vol] 93 mg/dL 74-106 [facility] Work Phone: Neutrophils (Bld) [#/Vol] 3.6 10*3/uL 2.0-7.7 [facility] Work Phone: Neutrophils/100 WBC (Bld) 62.0 % 47-70 [facility] Work Phone: Potassium [Moles/Vol] 4.0 mmol/L 3.5-5.1 [facility]: Protein [Mass/Vol] 6.9 g/dL 6.4-8.2 [facility] Work Phone: Sodium [Moles/Vol] 145 mmol/L 136-145 [facility] Work Phone: WBC (Bld) [#/Vol] 5.8 10*3/uL 4.4-11.0 [facility] Work Phone: Blood erythrocytes count (nu mber/volume)on 04-25-2022 RBC (Bld) [#/Vol] 4.52 10*6/uL 4.2-5.4 [facility] Work Phone: Blood hemoglobin measurement (mass/volume)on 04-25-2022 Hemoglobin (Bld) [Mass/Vol] 14.2 g/dL 12.0-15.0 [facility] Work Phone: Blood lymphocytes/100 leukoc yteson 04-25-2022 Lymphocytes/100 WBC (Bld) 24.3 % 19-41 [facility] Work Phone: Blood monocytes/100 leukocyt eson 04-25-2022 Monocytes/100 WBC (Bld) 8.1 % 0-10 [facility] Work Phone: [phone] Blood platelet mean volumeon 04-25-2022 Platelet mean volume (Bld) [Entitic vol] 9.2 fL 6.2-12.0 [facility] Work Phone: [phone] Determination of erythrocyte mean corpuscular volume (MCV)on 04-25-2022 MCV (RBC) [Entitic vol] 96.9 fL 81-99 [facility] Work Phone: Hematocrit Auto (Bld) [Volum e fraction]on 04-25-2022 Hematocrit (Bld) [Volume fraction] 43.8 % 37-47 [facility] Work Phone: [phone] Laboratory - Chemistry and C hemistry - challengeon 04-25-2022 ALP [Catalytic activity/Vol] 115 U/L 45-117 [facility] Work Phone: ALT [Catalytic activity/Vol] 29 U/L 13-56 [facility] Work Phone: CO2 [Moles/Vol] 31.0 mmol/L 21.0-32.0 [facility] Work Phone: [phone] Globulin (S) [Mass/Vol] 3.2 g/dL 2.2-4.2 [facility] Work Phone: [phone] Urea nitrogen/Creatinine [Mass ratio] 17.5 mg/mg 10-20 [facility] Work Phone: [phone] Laboratory - Hematology and Cell countson 04-25-2022 Erythrocyte distribution width (RBC) [Entitic vol] 47.6 fL 35.1-43.9 [facility] Work Phone: [phone] Erythrocyte distribution width (RBC) [Ratio] 13.3 % 11.6-14.6 [facility] Work Phone: Immature granulocytes/100 WBC (Bld) 1.000 % 0.0-0.9 [facility] Work Phone: [phone] Comment on above: IG% - Immature Granu locytes (promyelocytes, myelocytes and metamyelocytes) > 1% indicates that a LEFT SHIFT is Present. MCH (RBC) [Entitic mass] 31.4 pg 27.0-32.0 [facility] Work Phone: Nucleated RBC/100 WBC (Bld) [Ratio] 0 % 0-5 [facility] Work Phone: MCHC Auto (RBC) [Mass/Vol]on 04-25-2022 MCHC (RBC) [Mass/Vol] 32.4 g/dL 32-36 [facility] Work Phone: No Panel Informationon 04-25 Estimated Creatinine Clearance Calc 43.84 ml/min [facility] Work Phone: Estimated GFR (MDRD) Amer 69 mL/min >60 [facility] Work Phone: Comment on above: GFR Calc Estimated GFR (MDRD) Non-Af Amer 57 mL/min >60 [facility] Work Phone: Comment on above: Non- GFR Calc Platelets bldon 04-25-2022 Platelets (Bld) [#/Vol] 250 10*3/uL 150-450 [facility] Work Phone: Serum or plasma albumin giovany urement (mass/volume)on 04-25-2022 Albumin [Mass/Vol] 3.7 g/dL 3.2-5.0 [facility] Work Phone: Serum or plasma albumin/glob ulin mass ratioon 04-25-2022 Albumin/Globulin [Mass ratio] 1.2 {ratio} 0.9-2.4 [facility] Work Phone: Serum or plasma calcium giovany urement (mass/volume)on 04-25-2022 Calcium [Mass/Vol] 9.6 mg/dL 8.5-10.1 [facility] Work Phone: Serum or plasma creatinine m easurement (mass/volume)on 04-25-2022 Creatinine [Mass/Vol] 1.03 mg/dL 0.55-1.02 [facility] Work Phone: [phone] Comment on above: The validity of the calculated GFR & GFRAA in patients over 70 years has not been determined. Clinical correlation is essential. Serum or plasma urea nitroge n measurement (mass/volume)on 04-25-2022 Urea nitrogen [Mass/Vol] 18 mg/dL 7-18 [facility] Work Phone: Thin prep Papanicolaou smear with manual screeningon 04-25-2022 Thin prep Papanicolaou smear with manual screening 13 U/L 15-37 [facility] Work Phone: Thin prep Papanicolaou smear with manual screening 4 5-15 [facility] Work Phone: Absolute lymphocyte counton 01-21-2022 Lymphocytes Auto (Unsp spec) [#/Vol] 1.05 10*3/uL 0.83-4.51 [facility] Work Phone: Basophil percentageon 2021 Basophils/100 WBC (Bld) 0.9 % 0-1 [facility] Work Phone: Chloride [Moles/Vol] 111 mmol/L 98-107 [facility] Work Phone: Eosinophils/100 WBC (Bld) 2.1 % 0-5 [facility] Work Phone: Glucose [Mass/Vol] 98 mg/dL 74-106 [facility] Work Phone: Neutrophils (Bld) [#/Vol] 3.7 10*3/uL 2.0-7.7 [facility] Work Phone: Neutrophils/100 WBC (Bld) 69.1 % 47-70 [facility] Work Phone: Potassium [Moles/Vol] 3.8 mmol/L 3.5-5.1 [facility] Work Phone: Sodium [Moles/Vol] 143 mmol/L 136-145 [facility] Work Phone: WBC (Bld) [#/Vol] 5.3 10*3/uL 4.4-11.0 [facility] Work Phone: Blood erythrocytes count (nu mber/volume)on 01-21-2022 RBC (Bld) [#/Vol] 4.99 10*6/uL 4.2-5.4 [facility] Work Phone: Blood hemoglobin measurement (mass/volume)on 01-21-2022 Hemoglobin (Bld) [Mass/Vol] 15.2 g/dL 12.0-15.0 [facility] Work Phone: Blood lymphocytes/100 leukoc yteson 01-21-2022 Lymphocytes/100 WBC (Bld) 19.8 % 19-41 [facility] Work Phone: Blood monocytes/100 leukocyt eson 01-21-2022 Monocytes/100 WBC (Bld) 7.7 % 0-10 [facility] Work Phone: Blood platelet mean volumeon 01-21-2022 Platelet mean volume (Bld) [Entitic vol] 9.4 fL 6.2-12.0 [facility] Work Phone: Determination of erythrocyte mean corpuscular volume (MCV)on 01-21-2022 MCV (RBC) [Entitic vol] 93.2 fL 81-99 [facility] Work Phone: Hematocrit Auto (Bld) [Volum e fraction]on 01-21-2022 Hematocrit (Bld) [Volume fraction] 46.5 % 37-47 [facility] Work Phone: Laboratory - Chemistry and C hemistry - challengeon 01-21-2022 CO2 [Moles/Vol] 26.0 mmol/L 21.0-32.0 [facility] Work Phone: Urea nitrogen/Creatinine [Mass ratio] 15.0 mg/mg 10-20 [facility] Work Phone: Laboratory - Hematology and Cell countson 01-21-2022 Erythrocyte distribution width (RBC) [Entitic vol] 43.1 fL 35.1-43.9 [facility] Work Phone: Erythrocyte distribution width (RBC) [Ratio] 12.5 % 11.6-14.6 [facility] Work Phone: Immature granulocytes/100 WBC (Bld) 0.400 % 0.0-0.9 [facility] Work Phone: Comment on above: IG% - Immature Granu locytes (promyelocytes, myelocytes and metamyelocytes) > 1% indicates that a LEFT SHIFT is Present. MCH (RBC) [Entitic mass] 30.5 pg 27.0-32.0 [facility] Work Phone: Nucleated RBC/100 WBC (Bld) [Ratio] 0 % 0-5 [facility] Work Phone: MCHC Auto (RBC) [Mass/Vol]on 01-21-2022 MCHC (RBC) [Mass/Vol] 32.7 g/dL 32-36 [facility] Work Phone: No Panel Informationon 01-21 Troponin I High Sensitivity 4 pg/mL 3.0-54.0 [facility] Work Phone: Comment on above: Please Note: New Macy t Units and Gender Specific Reference Ranges. For more information see Policy Stat Procedure Mccammon High Sensitivity Troponin (TNIH) and attachments. Estimated Creatinine Clearance Calc 41.19 ml/min [facility] Work Phone: Estimated GFR (MDRD) Amer 71 mL/min >60 [facility] Work Phone: Comment on above: GFR Calc Estimated GFR (MDRD) Non-Af Amer 59 mL/min >60 [facility] Work Phone: Comment on above: Non- GFR Calc Platelets bldon 01-21-2022 Platelets (Bld) [#/Vol] 272 10*3/uL 150-450 [facility] Work Phone: Serum or plasma calcium giovany urement (mass/volume)on 01-21-2022 Calcium [Mass/Vol] 9.6 mg/dL 8.5-10.1 [facility] Work Phone: Serum or plasma creatinine m easurement (mass/volume)on 01-21-2022 Creatinine [Mass/Vol] 1.00 mg/dL 0.55-1.02 [facility] Work Phone: Comment on above: The validity of the calculated GFR & GFRAA in patients over 70 years has not been determined. Clinical correlation is essential. Serum or plasma urea nitroge n measurement (mass/volume)on 01-21-2022 Urea nitrogen [Mass/Vol] 15 mg/dL 7-18 [facility] Work Phone: Thin prep Papanicolaou smear with manual screeningon 01-21-2022 Thin prep Papanicolaou smear with manual screening 6 5-15 [facility] Work Phone: [phone] Absolute lymphocyte counton 10-18-2021 Lymphocytes Auto (Unsp spec) [#/Vol] 1.17 10*3/uL 0.83-4.51 [facility] Work Phone: [phone] Basophil percentageon 2021 Basophils/100 WBC (Bld) 1.2 % 0-1 [facility] Work Phone: [phone] Bilirubin [Mass/Vol] 0.60 mg/dL 0.20-1.00 [facility] Work Phone: Comment on above: For patients on eltr ombopag therapy, use of Dimension Mccammon TBIL is not recommended. Chloride [Moles/Vol] 108 mmol/L 98-107 [facility] Work Phone: Eosinophils/100 WBC (Bld) 2.8 % 0-5 [facility] Work Phone: [phone] Glucose [Mass/Vol] 93 mg/dL 74-106 [facility] Work Phone: Neutrophils (Bld) [#/Vol] 3.1 10*3/uL 2.0-7.7 [facility] Work Phone: Neutrophils/100 WBC (Bld) 62.0 % 47-70 [facility] Work Phone: [phone] Potassium [Moles/Vol] 4.0 mmol/L 3.5-5.1 [facility] Work Phone: Protein [Mass/Vol] 6.7 g/dL 6.4-8.2 [facility] Work Phone: Sodium [Moles/Vol] 142 mmol/L 136-145 [facility] Work Phone: WBC (Bld) [#/Vol] 4.9 10*3/uL 4.4-11.0 [facility] Work Phone: Blood erythrocytes count (nu mber/volume)on 10-18-2021 RBC (Bld) [#/Vol] 4.59 10*6/uL 4.2-5.4 [facility] Work Phone: [phone] Blood hemoglobin measurement (mass/volume)on 10-18-2021 Hemoglobin (Bld) [Mass/Vol] 14.1 g/dL 12.0-15.0 [facility] Work Phone: Blood lymphocytes/100 leukoc yteson 10-18-2021 Lymphocytes/100 WBC (Bld) 23.8 % 19-41 [facility] Work Phone: Blood monocytes/100 leukocyt eson 10-18-2021 Monocytes/100 WBC (Bld) 9.8 % 0-10 [facility] Work Phone: Blood platelet mean volumeon 10-18-2021 Platelet mean volume (Bld) [Entitic vol] 9.1 fL 6.2-12.0 [facility] Work Phone: Determination of erythrocyte mean corpuscular volume (MCV)on 10-18-2021 MCV (RBC) [Entitic vol] 91.9 fL 81-99 [facility] Work Phone: Hematocrit Auto (Bld) [Volum e fraction]on 10-18-2021 Hematocrit (Bld) [Volume fraction] 42.2 % 37-47 [facility] Work Phone: [phone] Laboratory - Chemistry and C hemistry - challengeon 10-18-2021 ALP [Catalytic activity/Vol] 109 U/L 45-117 [facility] Work Phone: ALT [Catalytic activity/Vol] 26 U/L 13-56 [facility] Work Phone: CO2 [Moles/Vol] 27.0 mmol/L 21.0-32.0 [facility] Work Phone: [phone] Globulin (S) [Mass/Vol] 3.0 g/dL 2.2-4.2 [facility] Work Phone: [phone] Urea nitrogen/Creatinine [Mass ratio] 21.4 mg/mg 10-20 [facility] Work Phone: [phone] Laboratory - Hematology and Cell countson 10-18-2021 Erythrocyte distribution width (RBC) [Entitic vol] 46.1 fL 35.1-43.9 [facility] Work Phone: [phone] Erythrocyte distribution width (RBC) [Ratio] 13.6 % 11.6-14.6 [facility] Work Phone: [phone] Immature granulocytes/100 WBC (Bld) 0.400 % 0.0-0.9 [facility] Work Phone: [phone] Comment on above: IG% - Immature Granu locytes (promyelocytes, myelocytes and metamyelocytes) > 1% indicates that a LEFT SHIFT is Present. MCH (RBC) [Entitic mass] 30.7 pg 27.0-32.0 [facility] Work Phone: [phone] Nucleated RBC/100 WBC (Bld) [Ratio] 0 % 0-5 [facility] Work Phone: [phone] MCHC Auto (RBC) [Mass/Vol]on 10-18-2021 MCHC (RBC) [Mass/Vol] 33.4 g/dL 32-36 [facility] Work Phone: [phone] No Panel Informationon 10-18 Estimated Creatinine Clearance Calc 48.04 ml/min [facility] Work Phone: [phone] Estimated GFR (MDRD) Amer 77 mL/min >60 [facility] Work Phone: Comment on above: GFR Calc Estimated GFR (MDRD) Non-Af Amer 63 mL/min >60 [facility] Work Phone: Comment on above: Non- GFR Calc Platelets bldon 10-18-2021 Platelets (Bld) [#/Vol] 247 10*3/uL 150-450 [facility] Work Phone: Serum or plasma albumin giovany urement (mass/volume)on 10-18-2021 Albumin [Mass/Vol] 3.7 g/dL 3.2-5.0 [facility] Work Phone: Serum or plasma albumin/glob ulin mass ratioon 10-18-2021 Albumin/Globulin [Mass ratio] 1.2 {ratio} 0.9-2.4 [facility] Work Phone: Serum or plasma calcium giovany urement (mass/volume)on 10-18-2021 Calcium [Mass/Vol] 9.4 mg/dL 8.5-10.1 [facility] Work Phone: Serum or plasma creatinine m easurement (mass/volume)on 10-18-2021 Creatinine [Mass/Vol] 0.94 mg/dL 0.55-1.02 [facility] Work Phone: Comment on above: The validity of the calculated GFR & GFRAA in patients over 70 years has not been determined. Clinical correlation is essential. Serum or plasma urea nitroge n measurement (mass/volume)on 10-18-2021 Urea nitrogen [Mass/Vol] 20 mg/dL 7-18 [facility] Work Phone: Thin prep Papanicolaou smear with manual screeningon 10-18-2021 Thin prep Papanicolaou smear with manual screening 16 U/L 15-37 [facility] Work Phone: Thin prep Papanicolaou smear with manual screening 7 5-15 [facility] Work Phone: CBCon 04-24-2021 Absolute nRBC <0.01 Normal <0.01 [facility] Comment on above: Performed By: #### C RP, RFP, CBC, FERR #### [address] [place] [address] Erythrocyte distribution width (RBC) [Ratio] 13.3 % Normal 11.5-15.0 [facility] Comment on above: Performed By: #### C RP, RFP, CBC, FERR #### [address] [place] [address] Hematocrit (Bld) [Volume fraction] 37.7 % Normal 36.0-46.0 [facility] Comment on above: Performed By: #### C RP, RFP, CBC, FERR #### [address] [place] [address] Hemoglobin (Bld) [Mass/Vol] 12.5 g/dL Normal 11.5-15.5 [facility] Comment on above: Performed By: #### C RP, RFP, CBC, FERR #### [address] [place] [address] MCH 30.4 pG Normal 26.0-34.0 [facility] Comment on above: Performed By: #### C RP, RFP, CBC, FERR #### [address] [place] [address] MCHC (RBC) [Mass/Vol] 33.2 g/dL Normal 30.5-36.0 [facility] Comment on above: Performed By: #### C RP, RFP, CBC, FERR #### [address] [place] [address] MCV (RBC) [Entitic vol] 91.7 fL Normal 80.0-100.0 [facility] Comment on above: Performed By: #### C RP, RFP, CBC, FERR #### [address] [place] [address] Platelet mean volume (Bld) [Entitic vol] 9.5 fL Normal 9.0-12.7 [facility] Comment on above: Performed By: #### C RP, RFP, CBC, FERR #### [facility] [address] [place] [address] Platelets (Bld) [#/Vol] 402 10*3/uL High 150-400 [facility] Comment on above: Performed By: #### C RP, RFP, CBC, FERR #### [address] [place] [address] RBC (Bld) [#/Vol] 4.11 10*6/uL Normal 3.90-5.20 [facility] Comment on above: Performed By: #### C RP, RFP, CBC, FERR #### [facility] [address] [place] [address] WBC (Bld) [#/Vol] 7.66 10*3/uL Normal 3.70-11.00 [facility] Comment on above: Performed By: #### C RP, RFP, CBC, FERR #### [address] [place] [address] CNDSon 04-24-2021 CNDS HNO ID: [id number] Author: Ty Pulido MD Service: General Internal Medicine Author Type: Physician Type: Discharge Summary Filed: 04/24/2021 10:26 PM Note Text: DISCHARGE SUMMARY PATIENT NAME: Bo Jacob Code Status: Not on file Highest Readmission [...] Pulido MD Primary Care Provider: Loan Dias APRN.SERVICE ORDER TAKER My Medical Team Members: Treatment Team: Attending [...] was down to 2l/m, was discharged to SNF OTHER PROBLEMS/DIAGNOSIS: Active Problems: HTN (hypertension) Malignant [...] No pending results Discharge Disposition Discharge Disposition: Intermediate Facility - Less than 30 Days Activity When You Leave the Hospital Resume pre-hospital activity Diet Instructions Resume your pre-hospital diet Follow Up Appointments Follow-Up Appointment When: In 2 weeks Patient/Parents to call for appointment?: Yes Loan Dias APRN.SERVICE ORDER TAKER [phone] [address] [address] PCP Requested Referral Additional Provider to Provider [...] the time of discharge, eventually discharged to [facility] Treatment Team: Attending Provider: Ty Pulido MD Consulting: Rolo Oates MD Consulting: Ty Pulido MD Transitions of Care Critical Issues: Discharged on 2 L nasal cannula oxygen LABS AND PROCEDURES PENDING AT DISCHARGE: No pending results. FOLLOW-UP APPOINTMENTS [facility] SCH[facility]: No future appointments. ALLERGIES Allergen [...] mg CR tabl (more content not included)... [facility] CONSULT PROGon 04-24-2021 CONSULT PROG HNO ID: [id number] Author: Rosendo Landin V, MD Service: Infectious [...] Time Signed: April 24, 2021 12:54 PM [facility] NURSING PROGon 04-24-2021 NURSING PROG HNO ID: [id number] Author: Shawnee Barrett RN Service: ? Author Type: Registered Nurse Type: Nursing Progress Note Filed: 04/24/2021 4:20 PM Note Text: Nursing Progress Note Patient Name: Bo Jacob Patient Location: [id number] 2 Daily Note: 0730: Assuming care of pt. Pt is resting in bed, daughter is at bedside.Pt is AANDOx3, 2L NC in place. Monitor maintained: SR. Port to left chest dressing DANDI, blood return present. Assessment as charted. 1400: Dr. Pulido in to see pt-OK to D/C to [facility] today at 4pm 1500: Port deaccessed. Monitor removed. Pt dressed and belongings packed. 1615: Ambulance here with stretcher to transport pt. Chart copied and sent with pt-report called to [facility]. This note was completed by: Shawnee Barrett [facility] NURSING PROG HNO ID: [id number] Author: Cherelle Howe, BERNABE Service: Nursing Author Type: Registered Nurse Type: Nursing Progress Note Filed: 04/24/2021 3:10 AM Note Text: Nursing Progress Note Patient Name: Bo Jacob Patient Location: [id number] 2 Daily Note: 1929 Assumed care of patient, she is currently up independently. Aox3, 2L NC. Bed low and locked, side rails up x2, call bella within reach. Will continue to monitor patient. 2124 NPR charted, VSS, L. Chest port patent, flushed with blood return present. SR on telemetry, 95% on 2L NC. Patient given scheduled tessalon perle. PRN xanax given for anxiety and PRN robitussin given for cough. No other patient complaints at this time. 14 Patient's daughter called stating she'd like to speak with patient and that it was urgent regarding her 's critical condition. I woke patient, and told her to return her daughter's call. This note was completed by: Cherelle Howe Normal [facility] Renal Function Panelon 04-24 Albumin [Mass/Vol] 3.5 g/dL Low 4.0-4.9 [facility] Comment on above: Performed By: #### C RP, RFP, CBC, FERR #### [facility] [address] [facility] [place] [address] Anion gap [Moles/Vol] 7 mmol/L Normal 0-15 Mar [facility] Comment on above: Performed By: #### C RP, RFP, CBC, FERR #### [place] [address] [facility] [place] [address] Calcium [Mass/Vol] 8.8 mg/dL Normal 8.5-10.2 [facility] Comment on above: Result Comment: Felipe mmended reference range provided for this age range is published by the instrument union carpenter. Adult reference ranges have been verified. Performed By: #### C RP, RFP, CBC, FERR #### [facility] [address] [facility] [place] [address] Chloride [Moles/Vol] 105 mmol/L Normal 97-105 [facility] Comment on above: Performed By: #### C RP, RFP, CBC, FERR #### [facility] [address] [facility] [place] [address] CO2 [Moles/Vol] 25 mmol/L Normal 22-30 [facility] Comment on above: Performed By: #### C RP, RFP, CBC, FERR #### [place] [address] [facility] [place] [address] Creatinine [Mass/Vol] 0.76 mg/dL Normal 0.58-0.96 Mar [facility] Comment on above: Performed By: #### C RP, RFP, CBC, FERR #### [address] [place] [address] eGFR- Amer. >60 Normal >60 [facility] Comment on above: Performed By: #### C RP, RFP, CBC, FERR #### [address] [place] [address] eGFR-All Other Races >60 Normal >60 [facility] Comment on above: Result Comment: eGFR (Estimated [...] #### C RP, RFP, CBC, FERR #### [address] [place] [address] Glucose [Mass/Vol] 95 mg/dL Normal 74-99 [facility] Comment on above: Performed By: #### C RP, RFP, CBC, FERR #### [address] [place] [address] Phosphate [Mass/Vol] 2.6 mg/dL Normal 2.5-4.5 [facility] Comment on above: Performed By: #### C RP, RFP, CBC, FERR #### [address] [place] [address] Potassium [Moles/Vol] 3.6 mmol/L Low 3.7-5.1 [facility] Comment on above: Performed By: #### C RP, RFP, CBC, FERR #### [address] [place] [address] Sodium [Moles/Vol] 137 mmol/L Normal 136-144 [facility] Comment on above: Performed By: #### C RP, RFP, CBC, FERR #### [facility] [address] [place] [address] Urea nitrogen [Mass/Vol] 18 mg/dL Normal 7-21 [facility] Comment on above: Result Comment: Felipe mmended reference range provided for this age range is published by the instrument union carpenter. Adult reference ranges have been verified. Performed By: #### C RP, RFP, CBC, FERR #### [facility] [address] [place] [address] THERAPY NTon 04-24-2021 THERAPY NT HNO ID: [id number] Author: Aj Lara PTA Service: Physical Therapy Author Type: General Service Officer Type: Therapy (PT/OT/Speech/Resp) Filed: 04/24/2021 2:37 PM Note Text: Attestation signed by Ashwini Diallo PT at 04/25/2021 6:33 AM I reviewed and agree with the documentation corresponding to this therapy visit. SIGNATURE: Ashwini Diallo PT DATE: April 25, 2021 TIME: 6:33 AM PHYSICAL THERAPY MISSED VISIT SERVICE DATE: 04/24/2021 SERVICE TIME: 1435 to 1435 ROOM: [place] [address] Attempted Treatment. Patient not seen due to Sleeping. SIGNATURE: Aj Lara PTA PATIENT NAME: Bo Jacob DATE: April 24, 2021 TIME: 2:35 PM Per RN pt resting, this AM and pt is being DCd today at 1600. [facility] THERAPY NT HNO ID: [id number] Author: Aj Lara PTA Service: Physical Therapy Author Type: General Service Officer Type: Therapy (PT/OT/Speech/Resp) Filed: 04/24/2021 8:12 AM Note Text: Attestation signed by Ashwini Diallo PT at 04/24/2021 9:24 AM I reviewed and agree with the documentation corresponding to this therapy visit. SIGNATURE: Ashwini Diallo PT DATE: April 24, 2021 TIME: 9:24 AM PHYSICAL THERAPY MISSED VISIT SERVICE DATE: 04/24/2021 SERVICE TIME: 0800 to 0800 ROOM: [place] [address] Attempted Treatment. Patient not seen due to Another service at bedside. SIGNATURE: Aj Lara PTA PATIENT NAME: Bo Jacob DATE: April 24, 2021 TIME: 8:09 AM RN at bed side and asked that pt not be seen for PT at this time due to pts is in hospital and not doing well, pt on phone with Dr del rosario. Will check back in PM. [facility] C-Reactive Proteinon 021 C-Reactive Protein 1.4 mg/dL High <0.9 [facility] Comment on above: Performed By: #### C RP, RFP, CBC, FERR #### [facility] [address] [facility] [place] [address] CBCon 04-23-2021 Absolute nRBC <0.01 Normal <0.01 [facility] Comment on above: Performed By: #### C RP, RFP, CBC, FERR #### [address] [place] [address] Erythrocyte distribution width (RBC) [Ratio] 13.3 % Normal 11.5-15.0 [facility] Comment on above: Performed By: #### C RP, RFP, CBC, FERR #### [address] [place] [address] Hematocrit (Bld) [Volume fraction] 36.4 % Normal 36.0-46.0 [facility] Comment on above: Performed By: #### C RP, RFP, CBC, FERR #### [address] [place] [address] Hemoglobin (Bld) [Mass/Vol] 12.1 g/dL Normal 11.5-15.5 [facility] Comment on above: Performed By: #### C RP, RFP, CBC, FERR #### [address] [place] [address] MCH 30.3 pG Normal 26.0-34.0 [facility] Comment on above: Performed By: #### C RP, RFP, CBC, FERR #### [address] [place] [address] MCHC (RBC) [Mass/Vol] 33.2 g/dL Normal 30.5-36.0 [facility] Comment on above: Performed By: #### C RP, RFP, CBC, FERR #### [address] [place] [address] MCV (RBC) [Entitic vol] 91.0 fL Normal 80.0-100.0 [facility] Comment on above: Performed By: #### C RP, RFP, CBC, FERR #### [address] [place] [address] Platelet mean volume (Bld) [Entitic vol] 9.3 fL Normal 9.0-12.7 [facility] Comment on above: Performed By: #### C RP, RFP, CBC, FERR #### [address] [place] [address] Platelets (Bld) [#/Vol] 434 10*3/uL High 150-400 [facility] Comment on above: Performed By: #### C RP, RFP, CBC, FERR #### [address] [place] [address] RBC (Bld) [#/Vol] 4.00 10*6/uL Normal 3.90-5.20 [facility] Comment on above: Performed By: #### C RP, RFP, CBC, FERR #### [address] [place] [address] WBC (Bld) [#/Vol] 6.60 10*3/uL Normal 3.70-11.00 [facility] Comment on above: Performed By: #### C RP, RFP, CBC, FERR #### [address] [place] [address] CONSULT PROGon 04-23-2021 CONSULT PROG HNO ID: [id number] Author: Kishan Maharaj V, MD Service: Pulmonary Disease Author Type: Physician Type: Consult Progress Note Filed: 04/25/2021 8:06 AM Note Text: PULMONARY/CRITICAL CARE PROGRESS NOTES PATIENT NAME: Bo Jacob SERVICE DATE: 04/23/2021 SERVICE TIME: 8:45 AM [...] mg ORAL DAILY (6 AM) phenol 1 [place] (CHLORASEPTIC) 1 [place] MUCOUS MEMBRANE (TOPICAL MOUTH AND THROAT) q 2 H PRN sodium chloride 0.65 % 2 [place] (AYR, OCEAN) 2 [place] EACH NOSTRIL PRN OBJECTIVE VITAL SIGNS (last [...] Mg, Phos Recent Labs 04/23/21 0610 04/22/21 0630 04/21/21 0500 WBC 6.60 7.94 9.21 HB 12.1 [...] may have been partially generated using the [employer] voice recognition system and there may be some incorrect words, spellings or punctuation that were not noted in review before signing. SIGNATURE: Pablo Deutsch PA-C DATE: April 23, 2021 TIME: 8:45 AM Phone/Pager - Supervising Staff Physician: Dr. Maharaj Attending Note I have personally performed a face to face assessment of the patient and have reveived the (more content not included)... Normal [facility] Expedited [id number] 04-23-20 21 SARS-CoV-2 (COVID-19) RNA KRISTOFER+probe Ql (Unsp spec) UPPER RESPIRATORY TRACT SWAB Normal [facility] Comment on above: Result Comment: Call ed to and read back by: Nicolasa Wilder RN [address] 04/23/21 1831 T Conn Performed By: #### C RP, RFP, CBC, FERR #### [facility] [address] [place] [id number] SARS-CoV-2 (COVID-19) RNA KRISTOFER+probe Ql (Unsp spec) Positive for COVID19 (SARS CoV2) by RT-PCR or equivalent method. Critically abnormal Negative for COVID19 (SARS CoV2) by RT-PCR or equivalent method. [facility] Comment on above: Result Comment: If y our test results are positive, you have tested positive for the presence of the virus associated with COVID-19. This is a stressful time and if you are a [facility] patient, we will support you by [...] #### C RP, RFP, CBC, FERR #### [facility] [address] [place] [address] Ferritinon 04-23-2021 Ferritin [Mass/Vol] 327.4 ng/mL High 14.7-205.1 [facility] Comment on above: Performed By: #### C RP, RFP, CBC, FERR #### [facility] [address] [facility] [place] [address] NURSING PROGon 04-23-2021 NURSING PROG HNO ID: [id number] Author: Derrek Wilder RN Service: ? Author Type: Registered Nurse Type: Nursing Progress Note Filed: 04/23/2021 6:39 PM Note Text: Nursing Progress Note Patient Name: Bo Jacob Patient Location: [id number] 2 Daily Note: 0730 Assumed care pt stable will continue to monitor vitals. Bed in low locked position and call light within reach. 1130 Pt 89% on exertion on 2L NC 1150 Pt 90 % at rest on room air, Pt placed back on 2 L NC pt spo2 93% 1400 Pt and aiden request for pt to go to [facility] 1830 microwave radio technician Conn called lab value covid positive. Pt already known to have covid. This note was completed by: Derrek Wilder Normal [facility] Renal Function Panelon 04-23 Albumin [Mass/Vol] 3.2 g/dL Low 4.0-4.9 [facility] Comment on above: Performed By: #### C RP, RFP, CBC, FERR #### [place] [address] [place] [address] Anion gap [Moles/Vol] 9 mmol/L Normal 0-15 [facility] Comment on above: Performed By: #### C RP, RFP, CBC, FERR #### [address] [place] [address] Calcium [Mass/Vol] 8.7 mg/dL Normal 8.5-10.2 [facility] Comment on above: Result Comment: Felipe mmended reference range provided for this age range is published by the instrument union carpenter. Adult reference ranges have been verified. Performed By: #### C RP, RFP, CBC, FERR #### [address] [place] [address] Chloride [Moles/Vol] 106 mmol/L High 97-105 [facility] Comment on above: Performed By: #### C RP, RFP, CBC, FERR #### [address] [place] [address] CO2 [Moles/Vol] 25 mmol/L Normal 22-30 [facility] Comment on above: Performed By: #### C RP, RFP, CBC, FERR #### [address] [place] [address] Creatinine [Mass/Vol] 0.81 mg/dL Normal 0.58-0.96 [facility] Comment on above: Performed By: #### C RP, RFP, CBC, FERR #### [address] [place] [address] eGFR- Amer. >60 Normal >60 [facility] Comment on above: Performed By: #### C RP, RFP, CBC, FERR #### [address] [place] [address] eGFR-All Other Races >60 Normal >60 [facility] Comment on above: Result Comment: eGFR (Estimated GFR) Units of measure: mL/min/1.73 meters squared eGFR is derived from the reexpressed MDRD Study equation using the following parameters: serum creatinine, age, gender and race. The creatinine assay has been calibrated to be traceable to IDWA. An eGFR <60 mL/min/1.73m2 for >3 months is consistent with chronic kidney disease. Refer to KDOQI guidelines for clinical interpretation. In patients with unstable renal function, e.g. those with acute kidney injury, the eGFR may not accurately reflect actual GFR. Performed By: #### C RP, RFP, CBC, FERR #### [address] [place] [address] Glucose [Mass/Vol] 91 mg/dL Normal 74-99 [facility] Comment on above: Performed By: #### C RP, RFP, CBC, FERR #### [address] [place] [address] Phosphate [Mass/Vol] 2.6 mg/dL Normal 2.5-4.5 [facility] Comment on above: Performed By: #### C RP, RFP, CBC, FERR #### [address] [place] [address] Potassium [Moles/Vol] 3.7 mmol/L Normal 3.7-5.1 [facility] Comment on above: Performed By: #### C RP, RFP, CBC, FERR #### [address] [place] [address] Sodium [Moles/Vol] 140 mmol/L Normal 136-144 [facility] Comment on above: Performed By: #### C RP, RFP, CBC, FERR #### [address] [place] [address] Urea nitrogen [Mass/Vol] 18 mg/dL Normal 7-21 [facility] Comment on above: Result Comment: Felipe mmended reference range provided for this age range is published by the instrument union carpenter. Adult reference ranges have been verified. Performed By: #### C RP, RFP, CBC, FERR #### [address] [place] [address] CBCon 04-22-2021 Absolute nRBC <0.01 Normal <0.01 [facility] Comment on above: Performed By: #### C RP, RFP, CBC, FERR #### [address] [place] [address] Erythrocyte distribution width (RBC) [Ratio] 13.2 % Normal 11.5-15.0 [facility] Comment on above: Performed By: #### C RP, RFP, CBC, FERR #### [address] [place] [address] Hematocrit (Bld) [Volume fraction] 37.3 % Normal 36.0-46.0 [facility] Comment on above: Performed By: #### C RP, RFP, CBC, FERR #### [address] [place] [address] Hemoglobin (Bld) [Mass/Vol] 12.4 g/dL Normal 11.5-15.5 [facility] Comment on above: Performed By: #### C RP, RFP, CBC, FERR #### [address] [place] [address] MCH 29.9 pG Normal 26.0-34.0 [facility] Comment on above: Performed By: #### C RP, RFP, CBC, FERR #### [address] [place] [address] MCHC (RBC) [Mass/Vol] 33.2 g/dL Normal 30.5-36.0 [facility] Comment on above: Performed By: #### C RP, RFP, CBC, FERR #### [address] [place] [address] MCV (RBC) [Entitic vol] 89.9 fL Normal 80.0-100.0 [facility] Comment on above: Performed By: #### C RP, RFP, CBC, FERR #### [address] [place] [address] Platelet mean volume (Bld) [Entitic vol] 9.3 fL Normal 9.0-12.7 [facility] Comment on above: Performed By: #### C RP, RFP, CBC, FERR #### [address] [place] [address] Platelets (Bld) [#/Vol] 452 10*3/uL High 150-400 [facility] Comment on above: Performed By: #### C RP, RFP, CBC, FERR #### [address] [place] [address] RBC (Bld) [#/Vol] 4.15 10*6/uL Normal 3.90-5.20 [facility] Comment on above: Performed By: #### C RP, RFP, CBC, FERR #### [address] [place] [address] WBC (Bld) [#/Vol] 7.94 10*3/uL Normal 3.70-11.00 [facility] Comment on above: Performed By: #### C RP, RFP, CBC, FERR #### [address] [place] [address] NURSING PROGon 04-22-2021 NURSING PROG HNO ID: [id number] Author: Ashley Aly, BERNABE Service: Nursing Author Type: Registered Nurse Type: Nursing Progress Note Filed: 04/22/2021 2:41 PM Note Text: Nursing Progress Note Patient Name: Bo Jacob Patient Location: [id number] 2 Daily Note: Received report from director of search engine optimization RN. Pt laying in bed, awake, and comfortable. Assessment complete as in the NPR.Pt needs met. Possessions and call light in reach. No complaints of pain at this time. 0821: Pt given medication as ordered and tolerated well. Pt needs met. Possessions and call light in reach. 1147: AP on unit and in to see. Made aware patient requesting to be transferred to [facility], for patient hospitalized there. AP called [facility] for transfer. This note was completed by: Ashley Aly [facility] NURSING PROG HNO ID: [id number] Author: Cherelle Howe RN Service: Nursing Author Type: Registered Nurse Type: Nursing Progress Note Filed: 04/22/2021 4:34 AM Note Text: Nursing Progress Note Patient Name: Bo Jacob Patient Location: [place] [id number] 2 Daily Note: 1930 Assumed care of patient, she is currently resting in bed. Pt is Aox3, 6L NC. Telemetry on and functioning. Bed low and locked, side rails up x3, call bella within reach. Will continue to monitor. 2100 NPR charted, VSS, IV flushed and patent. SR on telemetry, 98% on 6L NC. Patient given tessalon perle. PRN xanax given for anxiety, PRN robitussin given for cough, and PRN tramadol given for pain. 2300 Patient observed asleep. This note was completed by: Cherelle Howe [facility] Renal Function Panelon 04-22 Albumin [Mass/Vol] 3.2 g/dL Low 4.0-4.9 [facility] Comment on above: Performed By: #### C RP, RFP, CBC, FERR #### [facility] [address] [place] [address] Anion gap [Moles/Vol] 10 mmol/L Normal 0-15 Mar [facility] Comment on above: Performed By: #### C RP, RFP, CBC, FERR #### [address] [place] [address] Calcium [Mass/Vol] 8.8 mg/dL Normal 8.5-10.2 [facility] Comment on above: Result Comment: Felipe mmended reference range provided for this age range is published by the instrument union carpenter. Adult reference ranges have been verified. Performed By: #### C RP, RFP, CBC, FERR #### [address] [place] [address] Chloride [Moles/Vol] 105 mmol/L Normal 97-105 [facility] Comment on above: Performed By: #### C RP, RFP, CBC, FERR #### [address] [place] [address] CO2 [Moles/Vol] 25 mmol/L Normal 22-30 [facility] Comment on above: Performed By: #### C RP, RFP, CBC, FERR #### [address] [place] [address] Creatinine [Mass/Vol] 0.83 mg/dL Normal 0.58-0.96 [facility] Comment on above: Performed By: #### C RP, RFP, CBC, FERR #### [address] [place] [address] eGFR- Amer. >60 Normal >60 [facility] Comment on above: Performed By: #### C RP, RFP, CBC, FERR #### [address] [place] [address] eGFR-All Other Races >60 Normal >60 [facility] Comment on above: Result Comment: eGFR (Estimated GFR) Units of measure: mL/min/1.73 meters squared eGFR is derived from the reexpressed MDRD Study equation using the following parameters: serum creatinine, age, gender and race. The creatinine assay has been calibrated to be traceable to IDWA. An eGFR <60 mL/min/1.73m2 for >3 months is consistent with chronic kidney disease. Refer to KDOQI guidelines for clinical interpretation. In patients with unstable renal function, e.g. those with acute kidney injury, the eGFR may not accurately reflect actual GFR. Performed By: #### C RP, RFP, CBC, FERR #### [address] [place] [address] Glucose [Mass/Vol] 90 mg/dL Normal 74-99 [facility] Comment on above: Performed By: #### C RP, RFP, CBC, FERR #### [address] [place] [address] Phosphate [Mass/Vol] 2.9 mg/dL Normal 2.5-4.5 [facility] Comment on above: Performed By: #### C RP, RFP, CBC, FERR #### [address] [place] [address] Potassium [Moles/Vol] 3.5 mmol/L Low 3.7-5.1 [facility] Comment on above: Performed By: #### C RP, RFP, CBC, FERR #### [address] [place] [address] Sodium [Moles/Vol] 140 mmol/L Normal 136-144 [facility] Comment on above: Performed By: #### C RP, RFP, CBC, FERR #### [address] [place] [address] Urea nitrogen [Mass/Vol] 19 mg/dL Normal 7-21 [facility] Comment on above: Result Comment: Felipe mmended reference range provided for this age range is published by the instrument union carpenter. Adult reference ranges have been verified. Performed By: #### C RP, RFP, CBC, FERR #### [address] [place] [address] C-Reactive Proteinon 021 C-Reactive Protein 2.1 mg/dL High <0.9 [facility] Comment on above: Performed By: #### R FP, FERR, CBC, CRP ####[address] [place]., [place] [phone] CBCon 04-21-2021 Absolute nRBC <0.01 Normal <0.01 [facility] Comment on above: Performed By: #### R FP, FERR, CBC, CRP #### [address] [place] [address] Erythrocyte distribution width (RBC) [Ratio] 12.9 % Normal 11.5-15.0 [facility] Comment on above: Performed By: #### R FP, FERR, CBC, CRP #### [address] [place] [address] Hematocrit (Bld) [Volume fraction] 37.9 % Normal 36.0-46.0 [facility] Comment on above: Performed By: #### R FP, FERR, CBC, CRP #### [address] [place] [address] Hemoglobin (Bld) [Mass/Vol] 12.6 g/dL Normal 11.5-15.5 [facility] Comment on above: Performed By: #### R FP, FERR, CBC, CRP #### [address] [place] [address] MCH 30.1 pG Normal 26.0-34.0 [facility] Comment on above: Performed By: #### R FP, FERR, CBC, CRP #### [address] [place] [address] MCHC (RBC) [Mass/Vol] 33.2 g/dL Normal 30.5-36.0 [facility] Comment on above: Performed By: #### R FP, FERR, CBC, CRP #### [address] [place] [address] MCV (RBC) [Entitic vol] 90.7 fL Normal 80.0-100.0 [facility] Comment on above: Performed By: #### R FP, FERR, CBC, CRP #### [address] [place] [address] Platelet mean volume (Bld) [Entitic vol] 9.0 fL Normal 9.0-12.7 [facility] Comment on above: Performed By: #### R FP, FERR, CBC, CRP #### [address] [place] [address] Platelets (Bld) [#/Vol] 472 10*3/uL High 150-400 [facility] Comment on above: Performed By: #### R FP, FERR, CBC, CRP #### [address] [place] [address] RBC (Bld) [#/Vol] 4.18 10*6/uL Normal 3.90-5.20 [facility] Comment on above: Performed By: #### R FP, FERR, CBC, CRP #### [address] [place] [address] WBC (Bld) [#/Vol] 9.21 10*3/uL Normal 3.70-11.00 [facility] Comment on above: Performed By: #### R FP, FERR, CBC, CRP #### [address] [place] [address] CONSULT PROGon 04-21-2021 CONSULT PROG HNO ID: [id number] Author: Afsaneh Heard MD Service: Infectious Disease [...] CRP better AFSANEH HEARD M.D ID consultants [phone] [facility] Ferritinon 04-21-2021 Ferritin [Mass/Vol] 393.8 ng/mL High 14.7-205.1 [facility] Comment on above: Performed By: #### R FP, FERR, CBC, CRP ####[facility] [place], [place] [phone] NURSING PROGon 04-21-2021 NURSING PROG HNO ID: [id number] Author: Radha Clements RN Service: ? Author Type: Registered Nurse Type: Nursing Progress Note Filed: 04/21/2021 3:45 PM Note Text: Nursing Progress Note Patient Name: Bo Jacob Patient Location: [id number] 2 Daily Note: 07 Receive bedside report from off going RN. [...] This note was completed by: Radha Clements [facility] NUTRITIONon 04-21-2021 NUTRITION HNO ID: [id number] Author: Rehana Garcia RD Service: Nutrition Therapy Author Type: Registered Dietitian Type: Nutrition Filed: 04/21/2021 12:10 PM Note Text: NUTRITION THERAPY PROGRESS NOTE SERVICE DATE: 04/21/2021 SERVICE TIME: 1000 Nutrition Assessment: Recommended Malnutrition Diagnosis: Mild Protein-Calorie Malnutrition (04/17/21 0858 : Phyllis Esqueda RD) Estimated kilocalorie needs: 8319-3186 Calorie Calculation Method: 11-14 kcals/kg Estimated protein needs (grams): 96-120 Grams protein determined by: 2.0 - 2.5 g/kg;[place] body weight Care Plan: Continue current diet [...] SIGNATURE: Rehana Garcia RD PATIENT NAME: Bo Jacob DATE: April 21, 2021 TIME: 12:09 PM PAGER: [phone] Normal [facility] Renal Function Panelon 04-21 Albumin [Mass/Vol] 3.4 g/dL Low 4.0-4.9 [facility] Comment on above: Performed By: #### R FP, FERR, CBC, CRP ####[place] [address] [employer] [place]., [place] [phone] Anion gap [Moles/Vol] 7 mmol/L Normal 0-15 Mar [facility] Comment on above: Performed By: #### R FP, FERR, CBC, CRP ####[place] [address] [address] [facility] [place] [phone] Calcium [Mass/Vol] 8.8 mg/dL Normal 8.5-10.2 [facility] Comment on above: Result Comment: Felipe mmended reference range provided for this age range is published by the instrument union carpenter. Adult reference ranges have been verified. Performed By: #### R FP, FERR, CBC, CRP ####[place] [id number] [facility] [place] [phone] Chloride [Moles/Vol] 106 mmol/L High 97-105 [facility] Comment on above: Performed By: #### R FP, FERR, CBC, CRP ####[place] [address] [facility] [place]., [place] [phone] CO2 [Moles/Vol] 26 mmol/L Normal 22-30 [facility] Comment on above: Performed By: #### R FP, FERR, CBC, CRP ####[address] [place] [phone] Creatinine [Mass/Vol] 0.68 mg/dL Normal 0.58-0.96 [facility] Comment on above: Performed By: #### R FP, FERR, CBC, CRP ####[address] [place] [phone] eGFR- Amer. >60 Normal >60 [facility] Comment on above: Performed By: #### R FP, FERR, CBC, CRP ####[address] [place] [phone] eGFR-All Other Races >60 Normal >60 [facility] Comment on above: Result Comment: eGFR (Estimated [...] By: #### R FP, FERR, CBC, CRP ####[address] [place] [phone] Glucose [Mass/Vol] 94 mg/dL Normal 74-99 [facility] Comment on above: Performed By: #### R FP, FERR, CBC, CRP ####[address] [place] [phone] Phosphate [Mass/Vol] 2.7 mg/dL Normal 2.5-4.5 [facility] Comment on above: Performed By: #### R FP, FERR, CBC, CRP ####[address] [place] [phone] Potassium [Moles/Vol] 3.8 mmol/L Normal 3.7-5.1 [facility] Comment on above: Performed By: #### R FP, FERR, CBC, CRP ####[facility] [employer] [place] [phone] Sodium [Moles/Vol] 139 mmol/L Normal 136-144 [facility] Comment on above: Performed By: #### R FP, FERR, CBC, CRP ####[facility] [facility] [place]., [place] [phone] Urea nitrogen [Mass/Vol] 20 mg/dL Normal 7-21 [facility] Comment on above: Result Comment: Felipe mmended reference range provided for this age range is published by the instrument union carpenter. Adult reference ranges have been verified. Performed By: #### R FP, FERR, CBC, CRP ####[facility] [facility] [place]., [place] [phone] THERAPY NTon 04-21-2021 THERAPY NT HNO ID: [id number] Author: Stevo Fallon, PT Service: ? Author Type: Physical Therapist Type: Therapy (PT/OT/Speech/Resp) Filed: 04/21/2021 2:33 PM Note Text: Physical Therapy Re-Evaluation SERVICE DATE: 04/21/2021 SERVICE TIME: 1130 to 1215 ROOM: [place] [address] Recommended Discharge Disposition: Subacute/SNF Recommended Discharge Disposition [...] 5 L (more content not included)... Normal [facility] CBCon 04-20-2021 Absolute nRBC <0.01 Normal <0.01 [facility] Comment on above: Performed By: #### C RP, RFP, CBC, FERR #### [address], [place] [address] Erythrocyte distribution width (RBC) [Ratio] 13.0 % Normal 11.5-15.0 [facility] Comment on above: Performed By: #### C RP, RFP, CBC, FERR #### [address] [place] [address] Hematocrit (Bld) [Volume fraction] 35.8 % Low 36.0-46.0 [facility] Comment on above: Performed By: #### C RP, RFP, CBC, FERR #### [address] [place] [address] Hemoglobin (Bld) [Mass/Vol] 12.0 g/dL Normal 11.5-15.5 [facility] Comment on above: Performed By: #### C RP, RFP, CBC, FERR #### [address] [place] [address] MCH 30.2 pG Normal 26.0-34.0 [facility] Comment on above: Performed By: #### C RP, RFP, CBC, FERR #### [address] [place] [address] MCHC (RBC) [Mass/Vol] 33.5 g/dL Normal 30.5-36.0 [facility] Comment on above: Performed By: #### C RP, RFP, CBC, FERR #### [address] [place] [address] MCV (RBC) [Entitic vol] 90.2 fL Normal 80.0-100.0 [facility] Comment on above: Performed By: #### C RP, RFP, CBC, FERR #### [address] [place] [address] Platelet mean volume (Bld) [Entitic vol] 8.9 fL Low 9.0-12.7 [facility] Comment on above: Performed By: #### C RP, RFP, CBC, FERR #### [address] [place] [address] Platelets (Bld) [#/Vol] 442 10*3/uL High 150-400 [facility] Comment on above: Performed By: #### C RP, RFP, CBC, FERR #### [address] [place] [address] RBC (Bld) [#/Vol] 3.97 10*6/uL Normal 3.90-5.20 [facility] Comment on above: Performed By: #### C RP, RFP, CBC, FERR #### [address] [place] [address] WBC (Bld) [#/Vol] 7.32 10*3/uL Normal 3.70-11.00 [facility] Comment on above: Performed By: #### C RP, RFP, CBC, FERR #### [facility] [address] [place], [place] [phone] CONSULT PROGon 04-20-2021 CONSULT PROG HNO ID: [id number] Author: Afsaneh Heard MD Service: Infectious Disease [...] CRP better AFSANEH HEARD M.D ID consultants [phone] [facility] NURSING PROGon 04-20-2021 NURSING PROG HNO ID: [id number] Author: Alondra Rivas RN Service: Nursing Author Type: Registered Nurse Type: Nursing Progress Note Filed: 04/20/2021 7:51 PM Note Text: Nursing Progress Note Patient Name: Bo Jacob Patient Location: [id number] 2 Daily Note: 1930 Assumed care of patient. This note was completed by: Alondra Rivas [facility] NURSING PROG HNO ID: [id number] Author: Radha Clements RN Service: ? Author Type: Registered Nurse Type: Nursing Progress Note Filed: 04/20/2021 2:45 PM Note Text: Nursing Progress Note Patient Name: Bo Jacob Patient Location: [place] [id number] 2 Daily Note: 1350 Patient transfer to room [facility]-2 from ICU. Patient AANDOx3. Assessment complete as chart. Oxygen 5L via NC. No sing of respiratory distress noted. Telemetry maintained in SR. External catheter in place. No pain or c/o at this time. Bed rails upx3. Call light within reach. Will continue to monitor. [address] Pulido. This note was completed by: Radha Clements [facility] Renal Function Panelon 04-20 Albumin [Mass/Vol] 3.2 g/dL Low 4.0-4.9 [facility] Comment on above: Performed By: #### C RP, RFP, CBC, FERR #### [facility] [address] [place] [address] Anion gap [Moles/Vol] 9 mmol/L Normal 0-15 [facility] Comment on above: Performed By: #### C RP, RFP, CBC, FERR #### [facility] [address] [place] [address] Calcium [Mass/Vol] 8.7 mg/dL Normal 8.5-10.2 [facility] Comment on above: Result Comment: Felipe mmended reference range provided for this age range is published by the instrument union carpenter. Adult reference ranges have been verified. Performed By: #### C RP, RFP, CBC, FERR #### [facility] [address] [facility] [place] [address] Chloride [Moles/Vol] 105 mmol/L Normal 97-105 [facility] Comment on above: Performed By: #### C RP, RFP, CBC, FERR #### [facility] [address] [facility] [place] [address] CO2 [Moles/Vol] 25 mmol/L Normal 22-30 [facility] Comment on above: Performed By: #### C RP, RFP, CBC, FERR #### [facility] [address] [place] [address] [place] [address] Creatinine [Mass/Vol] 0.80 mg/dL Normal 0.58-0.96 [facility] Comment on above: Performed By: #### C RP, RFP, CBC, FERR #### [address] [place] [address] eGFR- Amer. >60 Normal >60 [facility] Comment on above: Performed By: #### C RP, RFP, CBC, FERR #### [facility] [phone] [place] [address]., [place] [address] eGFR-All Other Races >60 Normal >60 [facility] Comment on above: Result Comment: eGFR (Estimated [...] #### C RP, RFP, CBC, FERR #### [facility] [address] [facility] [place] [address] Glucose [Mass/Vol] 85 mg/dL Normal 74-99 [facility] Comment on above: Performed By: #### C RP, RFP, CBC, FERR #### [address] [place] [address] Phosphate [Mass/Vol] 3.0 mg/dL Normal 2.5-4.5 [facility] Comment on above: Performed By: #### C RP, RFP, CBC, FERR #### [address] [place] [address] Potassium [Moles/Vol] 3.8 mmol/L Normal 3.7-5.1 [facility] Comment on above: Performed By: #### C RP, RFP, CBC, FERR #### [address] [place] [address] Sodium [Moles/Vol] 139 mmol/L Normal 136-144 [facility] Comment on above: Performed By: #### C RP, RFP, CBC, FERR #### [address] [place] [address] Urea nitrogen [Mass/Vol] 18 mg/dL Normal 7-21 [facility] Comment on above: Result Comment: Felipe mmended reference range provided for this age range is published by the instrument union carpenter. Adult reference ranges have been verified. Performed By: #### C RP, RFP, CBC, FERR #### [address] [place] [address] C-Reactive Proteinon 021 C-Reactive Protein 3.7 mg/dL High <0.9 [facility] Comment on above: Performed By: #### C RP, RFP, CBC, FERR #### [address] [place] [address] CASE MANAGEMon 04-19-2021 CASE MANAGEM HNO ID: [id number] Author: Zehra Jones RN Service: Nursing Author [...] ? Noted DC planning has been for [facility]- sent updates. CM will continue to follow and assist with discharge planning. ? SIGNATURE: Zehra Jones RN PATIENT NAME: Bo Jacob DATE: April 19, 2021 TIME: 12:35 PM PAGER/CONTACT #: - Normal [facility] CBCon 04-19-2021 Absolute nRBC <0.01 Normal <0.01 [facility] Comment on above: Performed By: #### C RP, RFP, CBC, FERR #### [address] [place] [address] Erythrocyte distribution width (RBC) [Ratio] 13.0 % Normal 11.5-15.0 [facility] Comment on above: Performed By: #### C RP, RFP, CBC, FERR #### [address] Hematocrit (Bld) [Volume fraction] 36.3 % Normal 36.0-46.0 [facility] Comment on above: Performed By: #### C RP, RFP, CBC, FERR #### [phone] Hemoglobin (Bld) [Mass/Vol] 12.2 g/dL Normal 11.5-15.5 [facility] Comment on above: Performed By: #### C RP, RFP, CBC, FERR #### [address] [place] [address] MCH 29.9 pG Normal 26.0-34.0 [facility] Comment on above: Performed By: #### C RP, RFP, CBC, FERR #### [facility] [address] [place] [address] MCHC (RBC) [Mass/Vol] 33.6 g/dL Normal 30.5-36.0 [facility] Comment on above: Performed By: #### C RP, RFP, CBC, FERR #### [address] [place] [address] MCV (RBC) [Entitic vol] 89.0 fL Normal 80.0-100.0 [facility] Comment on above: Performed By: #### C RP, RFP, CBC, FERR #### [address] [place] [address] Platelet mean volume (Bld) [Entitic vol] 9.2 fL Normal 9.0-12.7 [facility] Comment on above: Performed By: #### C RP, RFP, CBC, FERR #### [address] [place] [address] Platelets (Bld) [#/Vol] 465 10*3/uL High 150-400 [facility] Comment on above: Performed By: #### C RP, RFP, CBC, FERR #### [address] [place] [address] RBC (Bld) [#/Vol] 4.08 10*6/uL Normal 3.90-5.20 [facility] Comment on above: Performed By: #### C RP, RFP, CBC, FERR #### [address] [place] [address] WBC (Bld) [#/Vol] 9.24 10*3/uL Normal 3.70-11.00 [facility] Comment on above: Performed By: #### C RP, RFP, CBC, FERR #### [address] [place] [address] CONSULTon 04-19-2021 CONSULT HNO ID: [id number] Author: Ty Pulido MD Service: General Internal Medicine Author Type: Physician Type: Consults Filed: 04/19/2021 9:27 PM Note Text: INTERNAL MEDICINE INITIAL CONSULT SERVICE DATE: 04/19/2021 SERVICE TIME: 11:30 AM REASON FOR CONSULT: Post ICU medical management REQUESTING PHYSICIAN: Dr. Moscoso PRIMARY CARE PHYSICIAN: Loan Dias APRN.SERVICE ORDER TAKER Subjective HISTORY OF PRESENT ILLNESS: Ms. Jacob is a 65 year old female who [...] - EXCISION OF CYST 1995 Right breast - IMPLANT CATH INSERTION (AG) [...] the past 2 (more content not included)... [facility] CONSULT PROGon 04-19-2021 CONSULT PROG HNO ID: [id number] Author: Afsaneh Heard MD Service: Infectious Disease [...] CRP better AFSANEH HEARD M.D ID consultants [phone] [facility] Ferritinon 04-19-2021 Ferritin [Mass/Vol] 402.7 ng/mL High 14.7-205.1 [facility] Comment on above: Performed By: #### C RP, RFP, CBC, FERR #### [facility] [address] [place] [address] NURSING PROGon 04-19-2021 NURSING PROG HNO ID: [id number] Author: Radha Gonzalez RN Service: ? Author Type: Registered Nurse Type: Nursing Progress Note Filed: 04/19/2021 7:36 PM Note Text: Nursing Progress Note Patient Name: Bo Jacob Patient Location: -ICUA16/-ICUA-16 Daily Note: 1900 assumed care of pt This note was completed by: Radha Gonzalez [facility] NURSING PROG HNO ID: [id number] Author: Claudia Salas RN Service: ? Author Type: Registered Nurse Type: Nursing Progress Note Filed: 04/19/2021 11:27 AM Note Text: Nursing Progress Note Patient Name: Bo Jacob Patient Location: -ICUA16/-ICUA-16 Daily Note: 0700 report from jyoti malcolm 1[address] dr. Moscoso at bedside, pt is transfer to telemetry This note was completed by: Claudia Salas Normal [facility] Renal Function Panelon 04-19 Albumin [Mass/Vol] 3.3 g/dL Low 4.0-4.9 [facility] Comment on above: Performed By: #### C RP, RFP, CBC, FERR #### [facility] [address] [facility] [place] [address] Anion gap [Moles/Vol] 10 mmol/L Normal 0-15 [facility] Comment on above: Performed By: #### C RP, RFP, CBC, FERR #### [address] [place] [address] Calcium [Mass/Vol] 8.8 mg/dL Normal 8.5-10.2 [facility] Comment on above: Result Comment: Felipe mmended reference range provided for this age range is published by the instrument union carpenter. Adult reference ranges have been verified. Performed By: #### C RP, RFP, CBC, FERR #### [address] [place] [address] Chloride [Moles/Vol] 105 mmol/L Normal 97-105 [facility] Comment on above: Performed By: #### C RP, RFP, CBC, FERR #### [address] [place] [address] CO2 [Moles/Vol] 24 mmol/L Normal 22-30 [facility] Comment on above: Performed By: #### C RP, RFP, CBC, FERR #### [address] [place] [address] Creatinine [Mass/Vol] 0.78 mg/dL Normal 0.58-0.96 [facility] Comment on above: Performed By: #### C RP, RFP, CBC, FERR #### [address] [place] [address] eGFR- Amer. >60 Normal >60 [facility] Comment on above: Performed By: #### C RP, RFP, CBC, FERR #### [facility] [address] [facility] [place] [address] eGFR-All Other Races >60 Normal >60 [facility] Comment on above: Result Comment: eGFR (Estimated [...] #### C RP, RFP, CBC, FERR #### [address] [place] [address] Glucose [Mass/Vol] 74 mg/dL Normal 74-99 [facility] Comment on above: Performed By: #### C RP, RFP, CBC, FERR #### [address] [place] [address] Phosphate [Mass/Vol] 2.8 mg/dL Normal 2.5-4.5 [facility] Comment on above: Performed By: #### C RP, RFP, CBC, FERR #### [place] [address] [facility] [place] [address] Potassium [Moles/Vol] 3.9 mmol/L Normal 3.7-5.1 [facility] Comment on above: Performed By: #### C RP, RFP, CBC, FERR #### [address] [place] [address] Sodium [Moles/Vol] 139 mmol/L Normal 136-144 [facility] Comment on above: Performed By: #### C RP, RFP, CBC, FERR #### [address] [place] [address] Urea nitrogen [Mass/Vol] 17 mg/dL Normal 7-21 [facility] Comment on above: Result Comment: Felipe mmended reference range provided for this age range is published by the instrument union carpenter. Adult reference ranges have been verified. Performed By: #### C RP, RFP, CBC, FERR #### [address] [place] [address] CBCon 04-18-2021 Absolute nRBC <0.01 Normal <0.01 [facility] Comment on above: Performed By: #### C RP, RFP, CBC, FERR #### [address] [place] [address] Erythrocyte distribution width (RBC) [Ratio] 12.7 % Normal 11.5-15.0 [facility] Comment on above: Performed By: #### C RP, RFP, CBC, FERR #### [address] [place] [address] Hematocrit (Bld) [Volume fraction] 35.7 % Low 36.0-46.0 [facility] Comment on above: Performed By: #### C RP, RFP, CBC, FERR #### [address] [place] [address] Hemoglobin (Bld) [Mass/Vol] 12.2 g/dL Normal 11.5-15.5 [facility] Comment on above: Performed By: #### C RP, RFP, CBC, FERR #### [address] [place] [address] MCH 30.3 pG Normal 26.0-34.0 [facility] Comment on above: Performed By: #### C RP, RFP, CBC, FERR #### [address] [place] [address] MCHC (RBC) [Mass/Vol] 34.2 g/dL Normal 30.5-36.0 [facility] Comment on above: Performed By: #### C RP, RFP, CBC, FERR #### [address] [place] [address] MCV (RBC) [Entitic vol] 88.6 fL Normal 80.0-100.0 [facility] Comment on above: Performed By: #### C RP, RFP, CBC, FERR #### [address] [place] [address] Platelet mean volume (Bld) [Entitic vol] 9.0 fL Normal 9.0-12.7 [facility] Comment on above: Performed By: #### C RP, RFP, CBC, FERR #### [address] [place] [address] Platelets (Bld) [#/Vol] 451 10*3/uL High 150-400 [facility] Comment on above: Performed By: #### C RP, RFP, CBC, FERR #### [address] [place] [address] RBC (Bld) [#/Vol] 4.03 10*6/uL Normal 3.90-5.20 [facility] Comment on above: Performed By: #### C RP, RFP, CBC, FERR #### [address] [place] [address] WBC (Bld) [#/Vol] 8.40 10*3/uL Normal 3.70-11.00 [facility] Comment on above: Performed By: #### C RP, RFP, CBC, FERR #### [address] [place] [address] CONSULT PROGon 04-18-2021 CONSULT PROG HNO ID: [id number] Author: Afsaneh Heard MD Service: Infectious Disease [...] WBC NL AFSANEH HEARD M.D ID consultants [phone] Normal [facility] Procalcitoninon 04-18-2021 Procalcitonin 0.13 ng/mL High <0.09 [facility] Comment on above: Result Comment: For a guided interpretation of test results, please visit the Change in Procalcitonin Calculator, [email or web address]. Performed By: #### C RP, RFP, CBC, FERR #### [facility] [address] [place] [address] Renal Function Panelon 04-18 Albumin [Mass/Vol] 3.3 g/dL Low 4.0-4.9 [facility] Comment on above: Performed By: #### C RP, RFP, CBC, FERR #### [facility] [address] [place] [address] Anion gap [Moles/Vol] 9 mmol/L Normal 0-15 [facility] Comment on above: Performed By: #### C RP, RFP, CBC, FERR #### [facility] [address] [place] [address] Calcium [Mass/Vol] 8.8 mg/dL Normal 8.5-10.2 [facility] Comment on above: Result Comment: Felipe mmended reference range provided for this age range is published by the instrument union carpenter. Adult reference ranges have been verified. Performed By: #### C RP, RFP, CBC, FERR #### [address] [place] [address] Chloride [Moles/Vol] 105 mmol/L Normal 97-105 [facility] Comment on above: Performed By: #### C RP, RFP, CBC, FERR #### [address] [place] [address] CO2 [Moles/Vol] 27 mmol/L Normal 22-30 [facility] Comment on above: Performed By: #### C RP, RFP, CBC, FERR #### [address] [place] [address] Creatinine [Mass/Vol] 0.80 mg/dL Normal 0.58-0.96 [facility] Comment on above: Performed By: #### C RP, RFP, CBC, FERR #### [address] [place] [address] eGFR- Amer. >60 Normal >60 [facility] Comment on above: Performed By: #### C RP, RFP, CBC, FERR #### [address] [place] [address] eGFR-All Other Races >60 Normal >60 [facility] Comment on above: Result Comment: eGFR (Estimated [...] #### C RP, RFP, CBC, FERR #### [address] [place] [address] Glucose [Mass/Vol] 87 mg/dL Normal 74-99 [facility] Comment on above: Performed By: #### C RP, RFP, CBC, FERR #### [address] [place] [address] Phosphate [Mass/Vol] 2.6 mg/dL Normal 2.5-4.5 [facility] Comment on above: Performed By: #### C RP, RFP, CBC, FERR #### [address] [place] [address] Potassium [Moles/Vol] 4.1 mmol/L Normal 3.7-5.1 [facility] Comment on above: Performed By: #### C RP, RFP, CBC, FERR #### [address] [place] [address] Sodium [Moles/Vol] 141 mmol/L Normal 136-144 [facility] Comment on above: Performed By: #### C RP, RFP, CBC, FERR #### [address] [place] [address] Urea nitrogen [Mass/Vol] 17 mg/dL Normal 7-21 [facility] Comment on above: Result Comment: Felipe mmended reference range provided for this age range is published by the instrument union carpenter. Adult reference ranges have been verified. Performed By: #### C RP, RFP, CBC, FERR #### [address] [place] [address] C-Reactive Proteinon 021 C-Reactive Protein 7.0 mg/dL High <0.9 [facility] Comment on above: Performed By: #### C BC, RFP, CRP, FERR ####[address] [place]., [place] [phone] CASE MANAGEMon 04-17-2021 CASE MANAGEM HNO ID: [id number] Author: Zehra Jones RN Service: Nursing Author [...] [place]. Noted DC planning has been for [facility]. CM will continue to follow and assist with discharge planning. SIGNATURE: Zehra Jones RN PATIENT NAME: Bo Jacob DATE: April 17, 2021 TIME: 12:48 PM PAGER/CONTACT #: - Normal [facility] CBCon 04-17-2021 Absolute nRBC <0.01 Normal <0.01 [facility] Comment on above: Performed By: #### C BC, RFP, CRP, FERR ####[address], [phone] Erythrocyte distribution width (RBC) [Ratio] 12.7 % Normal 11.5-15.0 [facility] Comment on above: Performed By: #### C BC, RFP, CRP, FERR ####[address], [phone] Hematocrit (Bld) [Volume fraction] 36.9 % Normal 36.0-46.0 [facility] Comment on above: Performed By: #### C BC, RFP, CRP, FERR ####[address], [phone] Hemoglobin (Bld) [Mass/Vol] 12.2 g/dL Normal 11.5-15.5 [facility] Comment on above: Performed By: #### C BC, RFP, CRP, FERR ####[address], [phone] MCH 30.0 pG Normal 26.0-34.0 [facility] Comment on above: Performed By: #### C BC, RFP, CRP, FERR ####[address] [place] [phone] MCHC (RBC) [Mass/Vol] 33.1 g/dL Normal 30.5-36.0 [facility] Comment on above: Performed By: #### C BC, RFP, CRP, FERR ####[address] [place] [phone] MCV (RBC) [Entitic vol] 90.7 fL Normal 80.0-100.0 [facility] Comment on above: Performed By: #### C BC, RFP, CRP, FERR ####[address] [place] [phone] Platelet mean volume (Bld) [Entitic vol] 9.1 fL Normal 9.0-12.7 [facility] Comment on above: Performed By: #### C BC, RFP, CRP, FERR ####[address] [place] [phone] Platelets (Bld) [#/Vol] 381 10*3/uL Normal 150-400 [facility] Comment on above: Performed By: #### C BC, RFP, CRP, FERR ####[address] [place] [phone] RBC (Bld) [#/Vol] 4.07 10*6/uL Normal 3.90-5.20 [facility] Comment on above: Performed By: #### C BC, RFP, CRP, FERR ####[address] [place] [phone] WBC (Bld) [#/Vol] 7.82 10*3/uL Normal 3.70-11.00 [facility] Comment on above: Performed By: #### C BC, RFP, CRP, FERR ####[address] [place]., [place] [phone] CONSULT PROGon 04-17-2021 CONSULT PROG HNO ID: [id number] Author: Afsaneh Heard MD Service: Infectious Disease [...] higher today AFSANEH HEARD M.D [facility] [phone] [facility] Ferritinon 04-17-2021 Ferritin [Mass/Vol] 495.8 ng/mL High 14.7-205.1 [facility] Comment on above: Performed By: #### C BC, RFP, CRP, FERR ####[facility] [place], [place] [phone] NURSING PROGon 04-17-2021 NURSING PROG HNO ID: [id number] Author: Claudia Salas RN Service: ? Author Type: Registered Nurse Type: Nursing Progress Note Filed: 04/17/2021 9:01 AM Note Text: Nursing Progress Note Patient Name: Bo Jacob Patient [facility] [place] [id number][facility] Daily Note: 699 report indra redd rn 0830 oxygen to nc 13l This note was completed by: Claudia Valdovinos [facility] NUTRITIONon 04-17-2021 NUTRITION HNO ID: [id number] Author: Phyllis Esqueda RD Service: Nutrition Therapy Author Type: Registered Dietitian Type: Nutrition Filed: 04/17/2021 9:02 AM Note Text: NUTRITION THERAPY INITIAL ASSESSMENT SERVICE DATE: 04/17/2021 SERVICE TIME: 799 Nutrition Assessment: Recommended Malnutrition Diagnosis: Mild Protein-Calorie Malnutrition In the context of: Acute Illness or Injury Based on: Insufficient Energy Intake Nutrition Diagnosis: Problem: Suboptimal oral intake Related to: Anorexia As evidenced by: Patient/family self-report;Intake records Estimated kilocalorie needs: 8285-1931 Calorie Calculation Method: 11-14 kcals/kg Estimated protein needs (grams): 96-120 Grams protein determined by: 2.0 - 2.5 g/kg;[place] body weight Care Plan: Continue current diet Supplements: Ensure Clear;Zone Perfect Bar Vitamins and Minerals: Multivitamin with minerals Labs: BMP;CBC;Magnesium;Phosphoru s Monitor and Evaluation: Meet greater than 75% of estimated needs;Monitor bowel function;Monitor fluid/electrolyte balance;Monitor labs, I/Os, vital signs, weight Discharge Recommendations: Diet Diet: To be determined HPI: 65 year old F admitted for SOB 2/2 COVID PNA. PMHx significant for ER/ME positive, HER2 positive invasive ductal carcinoma in [...] SIGNATURE: Phyllis Esqueda RD PATIENT NAME: Bo Jacob DATE: April 17, 2021 TIME: 9:01 AM PAGER: [phone] Normal [facility] Renal Function Panelon 04-17 Albumin [Mass/Vol] 3.2 g/dL Low 4.0-4.9 [facility] Comment on above: Performed By: #### C BC, RFP, CRP, FERR ####[facility] [facility] [place]., [place] [phone] Anion gap [Moles/Vol] 8 mmol/L Normal 0-15 [facility] Comment on above: Performed By: #### C BC, RFP, CRP, FERR ####[facility] [facility] [place]., [place] [phone] Calcium [Mass/Vol] 8.8 mg/dL Normal 8.5-10.2 [facility] Comment on above: Result Comment: Felipe mmended reference range provided for this age range is published by the instrument union carpenter. Adult reference ranges have been verified. Performed By: #### C BC, RFP, CRP, FERR ####[facility] [facility] [place]., [place] [phone] Chloride [Moles/Vol] 102 mmol/L Normal 97-105 [facility] Comment on above: Performed By: #### C BC, RFP, CRP, FERR ####[address] [place]., [place] [phone] CO2 [Moles/Vol] 27 mmol/L Normal 22-30 [facility] Comment on above: Performed By: #### C BC, RFP, CRP, FERR ####[address] [place]., [place] [phone] Creatinine [Mass/Vol] 0.89 mg/dL Normal 0.58-0.96 [facility] Comment on above: Performed By: #### C BC, RFP, CRP, FERR ####[address] [place]., [place] [phone] eGFR- Amer. >60 Normal >60 [facility] Comment on above: Performed By: #### C BC, RFP, CRP, FERR ####[address] [place]., [place] [phone] eGFR-All Other Races >60 Normal >60 [facility] Comment on above: Result Comment: eGFR (Estimated [...] By: #### C BC, RFP, CRP, FERR ####[address] [place]., [place] [phone] Glucose [Mass/Vol] 83 mg/dL Normal 74-99 [facility] Comment on above: Performed By: #### C BC, RFP, CRP, FERR ####[address] [place]., [place] [phone] Phosphate [Mass/Vol] 2.4 mg/dL Low 2.5-4.5 [facility] Comment on above: Performed By: #### C BC, RFP, CRP, FERR ####[facility] [facility] [place]., [place] [phone] Potassium [Moles/Vol] 3.5 mmol/L Low 3.7-5.1 [facility] Comment on above: Performed By: #### C BC, RFP, CRP, FERR ####[address] [place]., [place] [phone] Sodium [Moles/Vol] 137 mmol/L Normal 136-144 [facility] Comment on above: Performed By: #### C BC, RFP, CRP, FERR ####[address] [place]., [place] [phone] Urea nitrogen [Mass/Vol] 15 mg/dL Normal 7-21 [facility] Comment on above: Result Comment: Felipe mmended reference range provided for this age range is published by the instrument union carpenter. Adult reference ranges have been verified. Performed By: #### C BC, RFP, CRP, FERR ####[address] [place]., [place] [phone] THERAPY NTon 04-17-2021 THERAPY NT HNO ID: [id number] Author: Ashwini Diallo PT Service: Physical Therapy Author Type: Physical Therapist Type: Therapy (PT/OT/Speech/Resp) Filed: 04/17/2021 6:28 AM Note Text: PHYSICAL THERAPY MISSED VISIT SERVICE DATE: 04/17/2021 SERVICE TIME: 624 to 625 ROOM: [place] [address] Attempted Treatment. Patient not seen due to Illness. ICU transfer 04/15/2021 due to increasing shortness of breath, required venti-mask at 50%, now on hi-flow nasal cannula 12-15L with periods of desaturation noted in MD notes. Will hold PT this date due to deterioration and return for re-assessment as able. SIGNATURE: Ashwini Diallo PT PATIENT NAME: Bo Jacob DATE: April 17, 2021 TIME: 6:26 AM Normal [facility] CBCon 04-16-2021 Absolute nRBC <0.01 Normal <0.01 [facility] Comment on above: Performed By: #### C RP, RFP, CBC, FERR #### [address] [place] [address] Erythrocyte distribution width (RBC) [Ratio] 12.9 % Normal 11.5-15.0 [facility] Comment on above: Performed By: #### C RP, RFP, CBC, FERR #### [address] [place] [address] Hematocrit (Bld) [Volume fraction] 35.8 % Low 36.0-46.0 [facility] Comment on above: Performed By: #### C RP, RFP, CBC, FERR #### [address] [place] [address] Hemoglobin (Bld) [Mass/Vol] 12.0 g/dL Normal 11.5-15.5 [facility] Comment on above: Performed By: #### C RP, RFP, CBC, FERR #### [address] [place] [address] MCH 30.1 pG Normal 26.0-34.0 [facility] Comment on above: Performed By: #### C RP, RFP, CBC, FERR #### [address] [place] [address] MCHC (RBC) [Mass/Vol] 33.5 g/dL Normal 30.5-36.0 [facility] Comment on above: Performed By: #### C RP, RFP, CBC, FERR #### [address] [place] [address] MCV (RBC) [Entitic vol] 89.7 fL Normal 80.0-100.0 [facility] Comment on above: Performed By: #### C RP, RFP, CBC, FERR #### [address] [place] [address] Platelet mean volume (Bld) [Entitic vol] 9.1 fL Normal 9.0-12.7 [facility] Comment on above: Performed By: #### C RP, RFP, CBC, FERR #### [address] [place] [address] Platelets (Bld) [#/Vol] 363 10*3/uL Normal 150-400 [facility] Comment on above: Performed By: #### C RP, RFP, CBC, FERR #### [address] [place] [address] RBC (Bld) [#/Vol] 3.99 10*6/uL Normal 3.90-5.20 [facility] Comment on above: Performed By: #### C RP, RFP, CBC, FERR #### [address] [place] [address] WBC (Bld) [#/Vol] 7.31 10*3/uL Normal 3.70-11.00 [facility] Comment on above: Performed By: #### C RP, RFP, CBC, FERR #### [address] [place] [address] CONSULT PROGon 04-16-2021 CONSULT PROG HNO ID: [id number] Author: Monroe Stevens MD Service: Infectious Disease [...] trend inflammatory markers AND continue supportive measures [facility] CT CHEST W IVCON PEon 2020 CT CHEST W IVCON PE * * *Final Report* * * DATE OF EXAM: Apr 16 2021 4:00PM [facility] 0540 - CT CHEST W IVCON PE [...] lesion. Degenerative changes. Upper abdomen: Hepatic cysts Industrial Relations Analyst (topogram) images: No additional findings. IMPRESSION: No CT evidence of pulmonary embolism. Nondiagnostic regions of segmental and subsegmental pulmonary arteries Persistent bilateral lung opacities, some areas more confluent/consolidative compared to prior. Interval new small left pleural effusion. Mild mediastinal/hilar adenopathy, likely reactive Home Attendant: RODO Transcribe Date/Time: Apr 16 2021 5:17P Dictated by : GIOVANI HANLEY MD This examination was interpreted and the report reviewed and electronically signed by: GIOVANI HANLEY MD on Apr 16 2021 5:27PM EST [id number] [facility] NURSING PROGon 04-16-2021 NURSING PROG HNO ID: [id number] Author: Claudia Salas RN Service: ? Author Type: Registered Nurse Type: Nursing Progress Note Filed: 04/16/2021 7:53 AM Note Text: Nursing Progress Note Patient Name: Bo Jacob Patient Location: [facility]16 Daily Note: 0700 report from jyoti redd. Pt awake, alert, oriented. States had restful evening. This note was completed by: Claudia Salas [facility] NURSING PROG HNO ID: [id number] Author: Radha Gonzalez RN Service: ? Author Type: Registered Nurse Type: Nursing Progress Note Filed: 04/16/2021 2:50 AM Note Text: Nursing Progress Note Patient Name: Bo Jacob Patient Location: [facility]-16 Daily Note: 0000 assumed care of pt, received report from Norah Baxter RN This note was completed by: Radha Gonzalez [facility] Renal Function Panelon 04-16 Albumin [Mass/Vol] 3.1 g/dL Low 4.0-4.9 [facility] Comment on above: Performed By: #### C RP, RFP, CBC, FERR #### [facility] [address] [facility] [place] [address] Anion gap [Moles/Vol] 9 mmol/L Normal 0-15 [facility] Comment on above: Performed By: #### C RP, RFP, CBC, FERR #### [facility] [address] [facility] [place] [address] Calcium [Mass/Vol] 8.5 mg/dL Normal 8.5-10.2 [facility] Comment on above: Result Comment: Felipe mmended reference range provided for this age range is published by the instrument union carpenter. Adult reference ranges have been verified. Performed By: #### C RP, RFP, CBC, FERR #### [address] [place] [address] Chloride [Moles/Vol] 104 mmol/L Normal 97-105 [facility] Comment on above: Performed By: #### C RP, RFP, CBC, FERR #### [address] [place] [address] CO2 [Moles/Vol] 26 mmol/L Normal 22-30 [facility] Comment on above: Performed By: #### C RP, RFP, CBC, FERR #### [address] [place] [address] Creatinine [Mass/Vol] 0.89 mg/dL Normal 0.58-0.96 [facility] Comment on above: Performed By: #### C RP, RFP, CBC, FERR #### [address] [place] [address] eGFR- Amer. >60 Normal >60 [facility] Comment on above: Performed By: #### C RP, RFP, CBC, FERR #### [address] [place] [address] eGFR-All Other Races >60 Normal >60 [facility] Comment on above: Result Comment: eGFR (Estimated [...] #### C RP, RFP, CBC, FERR #### [address] [place] [address] Glucose [Mass/Vol] 80 mg/dL Normal 74-99 [facility] Comment on above: Performed By: #### C RP, RFP, CBC, FERR #### [address] [place] [address] Phosphate [Mass/Vol] 2.9 mg/dL Normal 2.5-4.5 [facility] Comment on above: Performed By: #### C RP, RFP, CBC, FERR #### [address] [place] [address] Potassium [Moles/Vol] 4.3 mmol/L Normal 3.7-5.1 [facility] Comment on above: Performed By: #### C RP, RFP, CBC, FERR #### [address] [place] [address] Sodium [Moles/Vol] 139 mmol/L Normal 136-144 [facility] Comment on above: Performed By: #### C RP, RFP, CBC, FERR #### [address] [place] [address] Urea nitrogen [Mass/Vol] 13 mg/dL Normal 7-21 [facility] Comment on above: Result Comment: Felipe mmended reference range provided for this age range is published by the instrument union carpenter. Adult reference ranges have been verified. Performed By: #### C RP, RFP, CBC, FERR #### [address] [place] [address] ALLIED HEALTHon 04-15-2021 [facility]IED [facility] HNO ID: [id number] Author: Megan Blanc RDMS Service: Radiology Author Type: Maint Mechanic Type: Allied Health Filed: 04/15/2021 5:09 PM Note Text: Radiology Service Progress Note PATIENT NAME: Bo Jacob DATE OF SERVICE: April 15, 2021 TIME: [...] RDMS April 15, 2021 5:09 PM Normal [facility] C-Reactive Proteinon 021 C-Reactive Protein 5.1 mg/dL High <0.9 [facility] Comment on above: Performed By: #### C RP #### [facility] [address] [place] [address] CONSULT PROGon 04-15-2021 CONSULT PROG HNO ID: [id number] Author: Monroe Stevens MD Service: Infectious Disease [...] Will maintain zosyn - day 5 of for now Continue dexa? thru 04/20 AND??day # 5 of 5 of remdesivir (monitor CrCl AND LFTs closely) Will trend inflammatory markers AND continue supportive measures Normal [facility] D dimeron 04-15-2021 D dimer 1540 ng/mL FEU High <500 [facility] Comment on above: Result Comment: 500 ng/mL [...] #### C RP, RFP, CBC, FERR #### [facility] [address] [place] [address] NURSING PROGon 04-15-2021 NURSING PROG HNO ID: [id number] Author: Claudia Salas RN Service: ? Author Type: Registered Nurse Type: Nursing Progress Note Filed: 04/15/2021 10:17 AM Note Text: Nursing Progress Note Patient Name: Bo Jacob [facility] Daily Note: [place]5 [place]ness [place] breath. Pt on 50 % venti mask, family at bedside. This note was completed by: Claudia Salas [facility] NURSING PROG HNO ID: [id number] Author: Akshat Julien RN Service: Nursing Author [...] at 50% and transfer patient to ICU. [facility] NURSING PROG HNO ID: [id number] Author: Jessie Martinez RN Service: Nursing Author Type: Registered Nurse Type: Nursing Progress Note Filed: 04/15/2021 7:58 AM Note Text: Nursing Progress Note Patient Name: Bo Jacob Patient Location: [id number] 2 Daily Note: Patient vitals sustained on 3 liters of oxygen; continues with continent diarrhea. Slept well for majority of the night. No s/s ?Of respiratory distress. Medicated with zofran for nausea per request with effective results. ? This note was completed by: Jessie Martinez Normal [facility] Procalcitoninon 04-15-2021 Procalcitonin 0.42 ng/mL High <0.09 [facility] Comment on above: Result Comment: For a guided interpretation of test results, please visit the Change in Procalcitonin Calculator, [email or web address]. Performed By: #### C RP, RFP, CBC, FERR #### [facility] [address] [facility] [place] [address] US DVT LOWER BILon US DVT LOWER [...] of the left and right lower extremities. Home Attendant: RODO Transcribe Date/Time: Apr 15 2021 9:15P Dictated by : MARISOL WOMACK MD This examination was interpreted and the report reviewed and electronically signed by: MARISOL WOMACK MD on Apr 15 2021 9:16PM EST [id number] [facility] XR CHEST 1V FRONTAL PORTon 0 [...] identified. OTHER: N/A IMPRESSION: Bilateral multifocal infiltrates. Home Attendant: RODO Transcribe Date/Time: Apr 15 2021 10:38A Dictated by : PHYLLIS VASQUEZ MD This examination was interpreted and the report reviewed and electronically signed by: PHYLLIS VASQUEZ MD on Apr 15 2021 10:39AM EST [id number] [facility] CONSULT PROGon 04-14-2021 CONSULT PROG HNO ID: [id number] Author: Rosendo Landin V, MD Service: Infectious [...] markers AND continue supportive measures Dr. Stevens home improvement contractor this weekend. This patient will be seen PRN your call. Please call answering service at [phone] should you need to reach the physician home improvement contractor. Rosendo Landin MD [employer] [facility] Office #: Fax #: Date AND Time Signed: April 14, 2021 11:15 AM Normal [facility] Comp Metabolic Panelon 04-14 Albumin [Mass/Vol] 3.2 g/dL Low 4.0-4.9 [facility] Comment on above: Performed By: #### C RP, RFP, CBC, FERR #### [facility] [address] [facility] [place] [address] ALP [Catalytic activity/Vol] 62 U/L Normal 34-123 [facility] Comment on above: Performed By: #### C RP, RFP, CBC, FERR #### [facility] [address] [place] [address] ALT [Catalytic activity/Vol] 25 U/L Normal 0-33 [facility] Comment on above: Performed By: #### C RP, RFP, CBC, FERR #### [facility] [address] [facility] [place] [address] Anion gap [Moles/Vol] 8 mmol/L Normal 0-15 [facility] Comment on above: Performed By: #### C RP, RFP, CBC, FERR #### [facility] [address] [facility] [place] [address] AST [Catalytic activity/Vol] 35 U/L High 0-32 [facility] Comment on above: Performed By: #### C RP, RFP, CBC, FERR #### [facility] [address] [facility] [place] [address] Bilirubin [Mass/Vol] 0.3 mg/dL Normal 0.2-1.3 [facility] Comment on above: Performed By: #### C RP, RFP, CBC, FERR #### [address] [place] [address] Calcium [Mass/Vol] 8.9 mg/dL Normal 8.5-10.2 [facility] Comment on above: Result Comment: Felipe mmended reference range provided for this age range is published by the instrument union carpenter. Adult reference ranges have been verified. Performed By: #### C RP, RFP, CBC, FERR #### [address] [place] [address] Chloride [Moles/Vol] 104 mmol/L Normal 97-105 [facility] Comment on above: Performed By: #### C RP, RFP, CBC, FERR #### [address] [place] [address] CO2 [Moles/Vol] 28 mmol/L Normal 22-30 [facility] Comment on above: Performed By: #### C RP, RFP, CBC, FERR #### [address] [place] [address] Creatinine [Mass/Vol] 1.08 mg/dL High 0.58-0.96 [facility] Comment on above: Performed By: #### C RP, RFP, CBC, FERR #### [address] [place] [address] eGFR- Amer. >60 Normal >60 [facility] Comment on above: Performed By: #### C RP, RFP, CBC, FERR #### [address] [place] [address] eGFR-All Other Races 51 . Low >60 [facility] Comment on above: Result Comment: eGFR (Estimated GFR) Units of measure: mL/min/1.73 meters squared eGFR is derived from the reexpressed MDRD Study equation using the following parameters: serum creatinine, age, gender and race. The creatinine assay has been calibrated to be traceable to IDWA. An eGFR <60 mL/min/1.73m2 for >3 months is consistent with chronic kidney disease. Refer to KDOQI guidelines for clinical interpretation. In patients with unstable renal function, e.g. those with acute kidney injury, the eGFR may not accurately reflect actual GFR. Performed By: #### C RP, RFP, CBC, FERR #### [address] [place] [address] Glucose [Mass/Vol] 78 mg/dL Normal 74-99 [facility] Comment on above: Performed By: #### C RP, RFP, CBC, FERR #### [address] [place] [address] Potassium [Moles/Vol] 4.0 mmol/L Normal 3.7-5.1 [facility] Comment on above: Performed By: #### C RP, RFP, CBC, FERR #### [address] [place] [address] Protein [Mass/Vol] 6.1 g/dL Low 6.6-8.7 [facility] Comment on above: Performed By: #### C RP, RFP, CBC, FERR #### [address] [place] [address] Sodium [Moles/Vol] 140 mmol/L Normal 136-144 [facility] Comment on above: Performed By: #### C RP, RFP, CBC, FERR #### [address] [place] [address] Urea nitrogen [Mass/Vol] 24 mg/dL High 7-21 [facility] Comment on above: Result Comment: Felipe mmended reference range provided for this age range is published by the instrument union carpenter. Adult reference ranges have been verified. Performed By: #### C RP, RFP, CBC, FERR #### [address] [place] [address] Expedited [id number] 04-14-20 SARS-CoV-2 (COVID-19) RNA KRISTOFER+probe Ql (Unsp spec) UPPER RESPIRATORY TRACT SWAB Normal [facility] Comment on above: Result Comment: Call ed to and read back by: Mariusz Chandler RN [facility] 4 [facility] 04/14/21 18[address] [facility] Performed By: #### E XCOVD ####[facility] [facility], [place] [phone] SARS-CoV-2 (COVID-19) RNA KRISTOFER+probe Ql (Unsp spec) Positive for COVID19 (SARS CoV2) by RT-PCR or equivalent method. Critically abnormal Negative for COVID19 (SARS CoV2) by RT-PCR or equivalent method. [facility] Comment on above: Result Comment: If y our test results are positive, you have tested positive for the presence of the virus associated with COVID-19. This is a stressful time and if you are a [facility] patient, we will support you by closely monitoring your symptoms and providing supportive resources that can ease your recovery. Our team will call you regularly and have you enter your symptoms in MyChart, so that we can provide the best care possible. This test has been authorized by FDA under an Emergency Use Authorization (EUA). Performed By: #### E XCOVD ####[facility] [facility], [place] [phone] NURSING PROGon 04-14-2021 NURSING PROG HNO ID: [id number] Author: Erika Chandler RN Service: ? Author Type: Registered Nurse Type: Nursing Progress Note Filed: 04/14/2021 3:34 PM Note Text: Nursing Progress Note Patient Name: Bo Jacob Patient Location: [id number] 2 Daily Note: 0800: AOx3. Non prod cough, 4L NC. Lungs diminished. External cath wnl. SB-SR on telemetry. Call light within reach. 1530: Covid swab sent to lab. This note was completed by: Erika Chandler [facility] NURSING PROG HNO ID: [id number] Author: Jessie Martinez RN Service: Nursing Author Type: Registered Nurse Type: Nursing Progress Note Filed: 04/14/2021 6:58 AM Note Text: Nursing Progress Note Patient Name: Bo Jacob Patient Location: [id number] 2 Daily Note: Patient vitals sustained on 3 liters of oxygen; continues with continent diarrhea. Slept well for majority of the night. No s/s Of respiratory distress. Medicated with zofran for nausea per request. ? This note was completed by: Jessie Martinez [facility] THERAPY NTon 04-14-2021 THERAPY NT HNO ID: [id number] Author: Destinee Hercules PTA Service: Physical Therapy Author Type: General Service Officer Type: Therapy (PT/OT/Speech/Resp) Filed: 04/14/2021 2:59 PM Note Text: Attestation signed by Radha Buck PT at 04/14/2021 3:40 PM I reviewed and agree with the documentation corresponding to this therapy visit. SIGNATURE: Radha Buck PT DATE: April 14, 2021 TIME: 3:40 PM PHYSICAL THERAPY MISSED VISIT SERVICE DATE: 04/14/2021 SERVICE TIME: 1430 to 1440 ROOM: [place] [address] Attempted Treatment. Patient not seen due to Declined. Fatigued after 2 out of town visitors and now requesting bed be d/t diarrhea from iv antibiotic . Pt placed on bed be with call button in reach. Nursing aware . SIGNATURE: Destinee Hercules PTA PATIENT NAME: Bo Jacob DATE: April 14, 2021 TIME: 2:56 PM Normal [facility] C-Reactive Proteinon 021 C-Reactive Protein 9.9 mg/dL High <0.9 [facility] Comment on above: Performed By: #### C RP ####[facility] [facility], [place] [phone] C-Reactive Protein 14.0 mg/dL High <0.9 [facility] Comment on above: Performed By: #### C MP, CRP #### [facility] [address] [place] [address] CONSULT PROGon 04-13-2021 CONSULT PROG HNO ID: [id number] Author: Afsaneh Heard MD Service: Infectious Disease [...] much improved AFSANEH HEARD M.D ID consultants [phone] Normal [facility] Comp Metabolic Panelon 04-13 Albumin [Mass/Vol] 3.3 g/dL Low 4.0-4.9 [facility] Comment on above: Performed By: #### C MP, CRP #### [facility] [address] [facility] [place] [address] ALP [Catalytic activity/Vol] 76 U/L Normal 34-123 [facility] Comment on above: Performed By: #### C MP, CRP #### [facility] [address] [facility] [place] [address] ALT [Catalytic activity/Vol] 28 U/L Normal 0-33 [facility] Comment on above: Performed By: #### C MP, CRP #### [facility] [address] [facility] [place] [address] Anion gap [Moles/Vol] 12 mmol/L Normal 0-15 [facility] Comment on above: Performed By: #### C MP, CRP #### [facility] [address] [facility] [place] [address] AST [Catalytic activity/Vol] 45 U/L High 0-32 [facility] Comment on above: Performed By: #### C MP, CRP #### [facility] [address] [facility] [place] [address] Bilirubin [Mass/Vol] 0.3 mg/dL Normal 0.2-1.3 [facility] Comment on above: Performed By: #### C MP, CRP #### [facility] [address] [facility] [place] [address] Calcium [Mass/Vol] 9.1 mg/dL Normal 8.5-10.2 [facility] Comment on above: Result Comment: Felipe mmended reference range provided for this age range is published by the instrument union carpenter. Adult reference ranges have been verified. Performed By: #### C MP, CRP #### [facility] [address] [facility] [place] [address] Chloride [Moles/Vol] 102 mmol/L Normal 97-105 [facility] Comment on above: Performed By: #### C MP, CRP #### [address] [place] [address] CO2 [Moles/Vol] 26 mmol/L Normal 22-30 [facility] Comment on above: Performed By: #### C MP, CRP #### [facility] [address] [facility] [place] [address] Creatinine [Mass/Vol] 1.04 mg/dL High 0.58-0.96 [facility] Comment on above: Performed By: #### C MP, CRP #### [facility] [address] [facility] [place] [address] eGFR- Amer. >60 Normal >60 [facility] Comment on above: Performed By: #### C MP, CRP #### [address] [place] [address] eGFR-All Other Races 53 . Low >60 [facility] Comment on above: Result Comment: eGFR (Estimated [...] Performed By: #### C MP, CRP #### [address] [place] [address] Glucose [Mass/Vol] 89 mg/dL Normal 74-99 [facility] Comment on above: Performed By: #### C MP, CRP #### [address] [place] [address] Potassium [Moles/Vol] 4.2 mmol/L Normal 3.7-5.1 [facility] Comment on above: Performed By: #### C MP, CRP #### [address] [place] [address] Protein [Mass/Vol] 6.6 g/dL Normal 6.6-8.7 [facility] Comment on above: Performed By: #### C MP, CRP #### [address] [place] [address] Sodium [Moles/Vol] 140 mmol/L Normal 136-144 [facility] Comment on above: Performed By: #### C MP, CRP #### [address] [place] [address] Urea nitrogen [Mass/Vol] 27 mg/dL High 7-21 [facility] Comment on above: Result Comment: Felipe mmended reference range provided for this age range is published by the instrument union carpenter. Adult reference ranges have been verified. Performed By: #### C MP, CRP #### [address] [place] [address] NURSING PROGon 04-13-2021 NURSING PROG HNO ID: [id number] Author: Erich Castro RN Service: Nursing Author Type: Registered Nurse Type: Nursing Progress Note Filed: 04/13/2021 4:29 PM Note Text: Nursing Progress Note Patient Name: Bo C Mennell Patient Location: [id number] 2 Daily Note:0730 Report obtained at this time Assessment completed, pt has no c/o at this time This note was completed by: Erich [facility] NURSING PROG HNO ID: [id number] Author: Jessie Martinez RN Service: Nursing Author Type: Registered Nurse Type: Nursing Progress Note Filed: 04/13/2021 8:25 AM Note Text: Nursing Progress Note Patient Name: Bo Jacob Patient Location: [id number] 2 Daily Note: Patient vitals sustained on 3 liters of oxygen; continues with continent diarrhea. Slept well for majority of the night. No s/s Of respiratory distress. This note was completed by: Jessie Martinez [facility] C-Reactive Proteinon 021 C-Reactive Protein 27.1 mg/dL High <0.9 [facility] Comment on above: Performed By: #### C RP, RFP, CBC, FERR #### [facility] [address] [place] [address] CONSULT PROGon 04-12-2021 CONSULT PROG HNO ID: [id number] Author: Afsaneh Heard MD Service: Infectious Disease [...] 11 K AFSANEH HEARD M.D ID consultants [phone] Normal [facility] Comp Metabolic Panelon 04-12 Albumin [Mass/Vol] 3.4 g/dL Low 4.0-4.9 [facility] Comment on above: Performed By: #### C RP, RFP, CBC, FERR #### [facility] [address] [place] [address] ALP [Catalytic activity/Vol] 69 U/L Normal 34-123 [facility] Comment on above: Performed By: #### C RP, RFP, CBC, FERR #### [facility] [address] [place] [address] ALT [Catalytic activity/Vol] 25 U/L Normal 0-33 [facility] Comment on above: Performed By: #### C RP, RFP, CBC, FERR #### [facility] [address] [place] [address] Anion gap [Moles/Vol] 12 mmol/L Normal 0-15 [facility] Comment on above: Performed By: #### C RP, RFP, CBC, FERR #### [facility] [address] [facility] [place] [address] AST [Catalytic activity/Vol] 41 U/L High 0-32 [facility] Comment on above: Performed By: #### C RP, RFP, CBC, FERR #### [facility] [address] [facility] [place] [address] Bilirubin [Mass/Vol] 0.2 mg/dL Normal 0.2-1.3 [facility] Comment on above: Performed By: #### C RP, RFP, CBC, FERR #### [address] [place] [address] Calcium [Mass/Vol] 8.6 mg/dL Normal 8.5-10.2 [facility] Comment on above: Result Comment: Felipe mmended reference range provided for this age range is published by the instrument union carpenter. Adult reference ranges have been verified. Performed By: #### C RP, RFP, CBC, FERR #### [address] [place] [address] Chloride [Moles/Vol] 100 mmol/L Normal 97-105 [facility] Comment on above: Performed By: #### C RP, RFP, CBC, FERR #### [address] [place] [address] CO2 [Moles/Vol] 25 mmol/L Normal 22-30 [facility] Comment on above: Performed By: #### C RP, RFP, CBC, FERR #### [facility] [address] [facility] [place] [address] Creatinine [Mass/Vol] 1.03 mg/dL High 0.58-0.96 [facility] Comment on above: Performed By: #### C RP, RFP, CBC, FERR #### [facility] [address] [facility] [place] [address] eGFR- Amer. >60 Normal >60 [facility] Comment on above: Performed By: #### C RP, RFP, CBC, FERR #### [address] [place] [address] eGFR-All Other Races 54 . Low >60 [facility] Comment on above: Result Comment: eGFR (Estimated [...] #### C RP, RFP, CBC, FERR #### [address] [place] [address] Glucose [Mass/Vol] 142 mg/dL High 74-99 [facility] Comment on above: Performed By: #### C RP, RFP, CBC, FERR #### [address] [place] [address] Potassium [Moles/Vol] 4.2 mmol/L Normal 3.7-5.1 [facility] Comment on above: Performed By: #### C RP, RFP, CBC, FERR #### [address] [place] [address] Protein [Mass/Vol] 6.4 g/dL Low 6.6-8.7 [facility] Comment on above: Performed By: #### C RP, RFP, CBC, FERR #### [address] [place] [address] Sodium [Moles/Vol] 137 mmol/L Normal 136-144 [facility] Comment on above: Performed By: #### C RP, RFP, CBC, FERR #### [address] [place] [address] Urea nitrogen [Mass/Vol] 23 mg/dL High 7-21 [facility] Comment on above: Result Comment: Felipe mmended reference range provided for this age range is published by the instrument union carpenter. Adult reference ranges have been verified. Performed By: #### C RP, RFP, CBC, FERR #### [facility] [address] [place] [address] NURSING PROGon 04-12-2021 NURSING PROG HNO ID: [id number] Author: Ondina Mauricio RN Service: ? Author Type: Registered Nurse Type: Nursing Progress Note Filed: 04/12/2021 11:01 AM Note Text: Nursing Progress Note Patient Name: Bo Jacob Patient Location: [id number] 2 Transfer Note: Patient transferred into room/unit 455-2 in stable condition. Actions taken: No futher actions taken at this time. Will continue to monitor and check with patient. This note was completed by: Ondina Mauricio [facility] NURSING PROG HNO ID: [id number] Author: Amber Ramirez RN Service: ? Author Type: Registered Nurse Type: Nursing Progress Note Filed: 04/12/2021 10:20 AM Note Text: Nursing Progress Note Patient Name: Bo Jacob [facility] Daily Note: 0715: assumed care of pt 0800: assessment as charted. Resting comfortably in bed. No s/s of distress, will continue to monitor. Daughter at bedside, updates given. 1015: report called to akshat Andrzej This note was completed by: Amber Ramirez Normal [facility] Procalcitoninon 04-12-2021 Procalcitonin 6.99 ng/mL High <0.09 [facility] Comment on above: Result Comment: For a guided interpretation of test results, please visit the Change in Procalcitonin Calculator, [email or web address]. Performed By: #### C RP, RFP, CBC, FERR #### [facility] [address] [facility] [place] [address] THERAPY NTon 04-12-2021 THERAPY NT HNO ID: [id number] Author: Geeta Nazario, PT Service: Physical Therapy Author Type: Physical Therapist Type: Therapy (PT/OT/Speech/Resp) Filed: 04/12/2021 11:28 AM Note Text: Physical Therapy Evaluation SERVICE DATE: 04/12/2021 SERVICE TIME: 0940 to 1030 ROOM: [place] [address] Recommended Discharge Disposition: Subacute/SNF Recommended Discharge Disposition [...] support and/or ph (more content not included)... [facility] THERAPY NT HNO ID: [id number] Author: Alice Nava, OT/L Service: Occupational Therapy Author Type: Occupational Therapist Type: Therapy (PT/OT/Speech/Resp) Filed: 04/13/2021 2:12 PM Note Text: Occupational Therapy Evaluation SERVICE DATE: 04/12/2021 SERVICE TIME: 1045 to 1125 ROOM: [place] [address] Recommended Discharge Disposition: Subacute/SNF Recommended Discharge Disposition [...] daily living (ADL) Interventions Provided: Evaluation;Therapeutic Activity (50731);Self Intermediate Management (74404) $ Evaluation-Low (67957) Billed Units: 1 unit Therapeutic Activity (52409) Treatment Minutes: 10 $ Therapeutic Activity (17517) Billed Units: 1 unit Self Intermediate Management (07257) Treatment Minutes: 15 $ Self Intermediate Management (19738) Billed Units: 1 unit Training AND education [...] for this therapy evaluation/treatment. SIGNATURE: Alice Nava OT/L PATIENT NAME: Bo Jacob DATE: April 13, 2021 TIME: 2:11 PM [facility] ALLIED HEALTHon 04-11-2021 ALLIED HEALTH HNO ID: [id number] Author: Leslie Rodriguez Unit Coordinator Service: Infection Prevention Author Type: ? Type: [...] of Positive Test(s): 04/06/2021 SIGNATURE: Leslie Rodriguez Unit Coordinator PATIENT NAME: Bo Jacob DATE: April 11, 2021 TIME: 7:49 AM PAGER/CONTACT #: [phone] Infection Prevention after hours/weekend pager: [phone] [facility] C-Reactive Proteinon 021 C-Reactive Protein 25.0 mg/dL High <0.9 [facility] Comment on above: Performed By: #### C RP, RFP, CBC, FERR #### [place] [address] [facility], [place] [address] CBCon 04-11-2021 Absolute nRBC <0.01 Normal <0.01 [facility] Comment on above: Performed By: #### C RP, RFP, CBC, FERR #### [place] [address] [facility], [place] [address] Erythrocyte distribution width (RBC) [Ratio] 13.2 % Normal 11.5-15.0 [facility] Comment on above: Performed By: #### C RP, RFP, CBC, FERR #### [place] [address] [place] [address] Hematocrit (Bld) [Volume fraction] 35.6 % Low 36.0-46.0 [facility] Comment on above: Performed By: #### C RP, RFP, CBC, FERR #### [address] [place] [address] Hemoglobin (Bld) [Mass/Vol] 11.7 g/dL Normal 11.5-15.5 [facility] Comment on above: Performed By: #### C RP, RFP, CBC, FERR #### [address] [place] [address] MCH 30.2 pG Normal 26.0-34.0 [facility] Comment on above: Performed By: #### C RP, RFP, CBC, FERR #### [address] [place] [address] MCHC (RBC) [Mass/Vol] 32.9 g/dL Normal 30.5-36.0 [facility] Comment on above: Performed By: #### C RP, RFP, CBC, FERR #### [address] [place] [address] MCV (RBC) [Entitic vol] 91.8 fL Normal 80.0-100.0 [facility] Comment on above: Performed By: #### C RP, RFP, CBC, FERR #### [address] [place] [address] Platelet mean volume (Bld) [Entitic vol] 9.8 fL Normal 9.0-12.7 [facility] Comment on above: Performed By: #### C RP, RFP, CBC, FERR #### [address] [place] [address] Platelets (Bld) [#/Vol] 178 10*3/uL Normal 150-400 [facility] Comment on above: Performed By: #### C RP, RFP, CBC, FERR #### [facility] [address] [facility] [place] [address] RBC (Bld) [#/Vol] 3.88 10*6/uL Low 3.90-5.20 [facility] Comment on above: Performed By: #### C RP, RFP, CBC, FERR #### [facility] [address] [facility] [place] [address] WBC (Bld) [#/Vol] 11.65 10*3/uL High 3.70-11.00 [facility] Comment on above: Performed By: #### C RP, RFP, CBC, FERR #### [facility] [address] [place] [address] CONSULTon 04-11-2021 CONSULT HNO ID: [id number] Author: Cresencio Wylie RPh Service: Pharmacy Author Type: Pharmacist Type: Consults Filed: 04/11/2021 8:20 PM Note Text: PHARMACY VANCOMYCIN DOSING NOTE Patient Name: Bo Jacob Admission Date: 04/11/2021 Date of Consult: 04/11/2021 Time of Consult: 8:18 PM Indication: Pneumonia Goal Range: 10-20 mcg/mL RECOMMENDATIONS/PLAN: Pharmacy consulted for vancomycin dosing for Bo Jacob, a 65 year old, female who is [...] have any questions, please contact pharmacy at [phone]. Age: [age] year old Allergies: ALLERGIES Allergen [...] 6.68 Vancomycin Levels: No results found for: MICHAEL Wylie [facility] Normal [facility] CONSULT HNO ID: [id number] Author: Afsaneh Heard MD Service: Infectious Disease Author Type: Physician Type: Consults Filed: 04/12/2021 7:44 AM Note Text: [facility] Consults ORIGINATOR: MD CECIL Lopez THERESE C ACCTNUM: [id number] SERVICE: ICU LOCATION: [place] [address] ATTENDING PHYSICIAN: Rolo Oates MD DATE OF SERVICE: 04/11/2021 TIME OF SERVICE: 10:05 AM REASON FOR REFERRAL: Severe COVID infection. HISTORY: This 65-year-old female with past medical history significant for breast cancer, who is currently on Aromasin, who presented to [facility] with concerns about worsening respiratory status. She [...] ICU, intubated, in a local hospital in [place]. REVIEW OF SYSTEMS: As in History of [...] Thank you very much for the referral. MD RASHIDA LopezJ:MedSarah /[id number] [facility] CONSULT HNO ID: [id number] Author: Afsaneh Heard MD Service: Infectious Disease [...] AND continue supportive measures AFSANEH HEARD M.D [phone] April 11, 2021 10:05 AM [facility] Comp Metabolic Panelon 04-11 Albumin [Mass/Vol] 3.5 g/dL Low 4.0-4.9 [facility] Comment on above: Performed By: #### C RP, RFP, CBC, FERR #### [facility] [address] [facility] [place] [address] ALP [Catalytic activity/Vol] 74 U/L Normal 34-123 [facility] Comment on above: Performed By: #### C RP, RFP, CBC, FERR #### [facility] [address] [facility] [place] [address] ALT [Catalytic activity/Vol] 24 U/L Normal 0-33 [facility] Comment on above: Performed By: #### C RP, RFP, CBC, FERR #### [facility] [address] [facility] [place] [address] Anion gap [Moles/Vol] 14 mmol/L Normal 0-15 [facility] Comment on above: Performed By: #### C RP, RFP, CBC, FERR #### [facility] [address] [facility] [place] [address] AST [Catalytic activity/Vol] 50 U/L High 0-32 [facility] Comment on above: Performed By: #### C RP, RFP, CBC, FERR #### [address] [place] [address] Bilirubin [Mass/Vol] 0.2 mg/dL Normal 0.2-1.3 [facility] Comment on above: Performed By: #### C RP, RFP, CBC, FERR #### [address] [place] [address] Calcium [Mass/Vol] 8.7 mg/dL Normal 8.5-10.2 [facility] Comment on above: Result Comment: Felipe mmended reference range provided for this age range is published by the instrument union carpenter. Adult reference ranges have been verified. Performed By: #### C RP, RFP, CBC, FERR #### [address] [place] [address] Chloride [Moles/Vol] 102 mmol/L Normal 97-105 [facility] Comment on above: Performed By: #### C RP, RFP, CBC, FERR #### [address] [place] [address] CO2 [Moles/Vol] 19 mmol/L Low 22-30 [facility] Comment on above: Performed By: #### C RP, RFP, CBC, FERR #### [address] [place] [address] Creatinine [Mass/Vol] 1.10 mg/dL High 0.58-0.96 [facility] Comment on above: Performed By: #### C RP, RFP, CBC, FERR #### [address] [place] [address] eGFR- Amer. >60 Normal >60 [facility] Comment on above: Performed By: #### C RP, RFP, CBC, FERR #### [address] [place] [address] eGFR-All Other Races 50 . Low >60 [facility] Comment on above: Result Comment: eGFR (Estimated [...] #### C RP, RFP, CBC, FERR #### [address] [place] [address] Glucose [Mass/Vol] 110 mg/dL High 74-99 [facility] Comment on above: Performed By: #### C RP, RFP, CBC, FERR #### [address] [place] [address] Potassium [Moles/Vol] 4.2 mmol/L Normal 3.7-5.1 [facility] Comment on above: Performed By: #### C RP, RFP, CBC, FERR #### [address] [place] [address] Protein [Mass/Vol] 6.4 g/dL Low 6.6-8.7 [facility] Comment on above: Performed By: #### C RP, RFP, CBC, FERR #### [address] [place] [address] Sodium [Moles/Vol] 135 mmol/L Low 136-144 [facility] Comment on above: Performed By: #### C RP, RFP, CBC, FERR #### [address] [place] [address] Urea nitrogen [Mass/Vol] 18 mg/dL Normal 7-21 [facility] Comment on above: Result Comment: Felipe mmended reference range provided for this age range is published by the instrument union carpenter. Adult reference ranges have been verified. Performed By: #### C RP, RFP, CBC, FERR #### [facility] [address] [facility] [address] Ferritinon 04-11-2021 Ferritin [Mass/Vol] 500.0 ng/mL High 14.7-205.1 [facility] Comment on above: Performed By: #### C RP, RFP, CBC, FERR #### [facility] [address] [facility] [place] [address] HISTORY PHYSICALon HISTORY PHYSICAL HNO ID: [id number] Author: Gavin Gonzalez MD Service: Hospital Medicine Author Type: Physician Type: HANDP Filed: 04/11/2021 6:33 AM Note Text: DEPARTMENT OF HOSPITAL MEDICINE HISTORY AND PHYSICAL EXAMINATION PATIENT NAME: oB Jacob LENGTH OF STAY: 0 HOSPITAL ROOM: [place] [address]/[place] [address]* ; AGE: 2 1955; 65 year old ADMITTING PHYSICIAN: Sukumar Castellon MD DATE OF ADMISSION: No admission date for patient encounter. SERVICE - Hospital Medicine Patient admitted to hospitalist team. 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 She presented with a chief complaint of shortness of breath and cough reports symptoms have been going on for almost a week and see testing COVID-19 on 04/06/21. Her had similar symptoms and was diagnosed with COVID-19 infection and he is currently admitted at [facility] in the ICU. She was prescribed oral [...] consistent with viral pneumonitis. On arrival to [facility] O2 inc to 4-5 lit to keep [...] Soft, non-tender, non-diste (more content not included)... [facility] NURSING PROGon 04-11-2021 NURSING PROG HNO ID: [id number] Author: Jessie Martinez RN Service: Nursing Author Type: Registered Nurse Type: Nursing Progress Note Filed: 04/11/2021 6:07 AM Note Text: Nursing Progress Note Patient Name: Bo Jacob Patient Location: [id number] 2 Daily Note: Patient admitted and assessed [...] This note was completed by: Jessie Martinez [facility] Procalcitoninon 04-11-2021 Procalcitonin 7.12 ng/mL High <0.09 [facility] Comment on above: Result Comment: For a guided interpretation of test results, please visit the Change in Procalcitonin Calculator, [email or web address]. Performed By: #### C RP, RFP, CBC, FERR #### [facility] [address] [place] [address] Staph aureus PCRon 1 MRSA PCR Negative [facility] Comment on above: Performed By: #### C RP, RFP, CBC, FERR #### [facility] [address] [place] [address] S aureus Spec Source Nasal [facility] Comment on above: Performed By: #### C RP, RFP, CBC, FERR #### [facility] [address] [facility] [place] [address] Staph aureus PCR Positive Critically abnormal [facility] Comment on above: Performed By: #### C RP, RFP, CBC, FERR #### [facility] [address] [facility] [place] [address] Laboratory - Chemistry and C hemistry - challengeon 02-15-2021 Magnesium [Mass/Vol] 2.1 mg/dL 1.6-2.6 [facility] Basophil percentageon 2020 Basophil percentage 4.3 mg/dL 2.5-4.9 [facility] Trichomonas screening teston 01-25-2021 Phosphorus Level 4.3 mg/dL 2.5-4.9 [facility] ALLIED HEALTHon 06-10-2020 ALLIED HEALTH HNO ID: [id number] Author: Nicolle (Ct) Patch, CT Service: Radiology Author Type: Clinical Maint Mechanic Type: Allied Health Filed: 06/10/2020 4:12 PM [...] SIGNATURE: Nicolle Rojas, CT PATIENT NAME: Bo Jacob DATE: June 10, 2020 TIME: 4:12 PM Normal [facility] CBC and Differentialon 06-10 Abs Baso 0.05 k/uL Normal <0.11 [facility] Comment on above: Performed By: #### C MP, CBCDIF ####[facility] [address] [place] [address] Abs Worth 0.42 k/uL Normal <0.87 [facility] Comment on above: Performed By: #### C MP, CBCDIF ####[facility] [address] [place] [address] Abs Neut 4.78 k/uL Normal 1.45-7.50 [facility] Comment on above: Performed By: #### C MP, CBCDIF ####[facility] [address] [place] [address] Absolute nRBC <0.01 Normal <0.01 [facility] Comment on above: Performed By: #### C MP, CBCDIF ####[place] [address] Basophils/100 WBC (Bld) 0.7 % Normal [facility] Comment on above: Performed By: #### C MP, CBCDIF ####[place] [address] DTYPE Auto Diff Normal [facility] Comment on above: Performed By: #### C MP, CBCDIF ####[place] [address] Eosinophils (Bld) [#/Vol] 0.10 10*3/uL Normal <0.46 [facility] Comment on above: Performed By: #### C MP, CBCDIF ####[place] [address] Eosinophils/100 WBC (Bld) 1.4 % Normal [facility] Comment on above: Performed By: #### C MP, CBCDIF ####[place] [address] Erythrocyte distribution width (RBC) [Ratio] 13.2 % Normal 11.5-15.0 [facility] Comment on above: Performed By: #### C MP, CBCDIF ####[place] [address] Hematocrit (Bld) [Volume fraction] 46.2 % High 36.0-46.0 [facility] Comment on above: Performed By: #### C MP, CBCDIF ####[facility] [address] [place] [address] Hemoglobin (Bld) [Mass/Vol] 15.0 g/dL Normal 11.5-15.5 [facility] Comment on above: Performed By: #### C MP, CBCDIF ####[facility] [address] [place], [place] [id number] Lymphocytes (Bld) [#/Vol] 1.71 10*3/uL Normal 1.00-4.00 [facility] Comment on above: Performed By: #### C MP, CBCDIF ####[facility] [address] [place] [address] Lymphocytes/100 WBC (Bld) 24.2 % Normal [facility] Comment on above: Performed By: #### C NIURKA, CBCDIF ####[facility] [address] [place] [address] MCH (RBC) [Entitic mass] 30.6 pG Normal 26.0-34.0 [facility] Comment on above: Performed By: #### C MP, CBCDIF ####[facility] [address] [place] [address] MCHC (RBC) [Mass/Vol] 32.5 g/dL Normal 30.5-36.0 [facility] Comment on above: Performed By: #### C MP, CBCDIF ####[facility] [address] [place], [place] [id number] MCV (RBC) [Entitic vol] 94.3 fL Normal 80.0-100.0 [facility] Comment on above: Performed By: #### C MP, CBCDIF ####[facility] [address] [place], [place] [id number] Monocytes/100 WBC (Bld) 5.9 % Normal [facility] Comment on above: Performed By: #### C MP, CBCDIF ####[facility] [address] [place], [place] [id number] Neutrophils/100 WBC (Bld) 67.8 % Normal [facility] Comment on above: Performed By: #### C NIURKA, CBCDIF ####[facility] [address] [place], [place] [id number] NRBCs 0.0 /100 WBC Normal 0 [facility] Comment on above: Performed By: #### C MP, CBCDIF ####[facility] [address] [place] [address] Platelet mean volume (Bld) [Entitic vol] 9.8 fL Normal 9.0-12.7 [facility] Comment on above: Performed By: #### C MP, CBCDIF ####[facility] [address] [place] [address] Platelets (Bld) [#/Vol] 260 10*3/uL Normal 150-400 [facility] Comment on above: Performed By: #### C MP, CBCDIF ####[facility] [address] [place] [address] RBC (Bld) [#/Vol] 4.90 10*6/uL Normal 3.90-5.20 [facility] Comment on above: Performed By: #### C MP, CBCDIF ####[facility] [address] [place] [address] WBC (Bld) [#/Vol] 7.06 10*3/uL Normal 3.70-11.00 [facility] Comment on above: Performed By: #### C NIURKA, CBCDIF ####[facility] [address] [place] [address] CT BRAIN WO IVCONon 06-10-20 CT BRAIN WO IVCON * * *Final Report* * * DATE OF EXAM: Jun 10 2020 4:11PM [facility] 0504 - CT BRAIN WO IVCON / [...] extracranial soft tissues are grossly normal. NECK: Industrial Relations Analyst (topogram) images: Unremarkable Postop: There is a [...] CT BRAIN. NORMAL NECK AND INTRACRANIAL CTA. Home Attendant: RODO Transcribe Date/Time: Jun 10 2020 4:16P Dictated by : ANGIE BARCENAS MD This examination was interpreted and the report reviewed and electronically signed by: ANGIE BARCENAS MD on Jun 10 2020 4:22PM EST [id number] [facility] CTA HEAD W IVCONon 0 CTA HEAD W IVCON * * *Final Report* * * DATE OF EXAM: Jun 10 2020 4:11PM [facility] 0022 - CTA HEAD W IVCON / [...] extracranial soft tissues are grossly normal. NECK: Industrial Relations Analyst (topogram) images: Unremarkable Postop: There is a [...] CT BRAIN. NORMAL NECK AND INTRACRANIAL CTA. Home Attendant: RODO Transcribe Date/Time: Jun 10 2020 4:16P Dictated by : ANGIE BARCENAS MD This examination was interpreted and the report reviewed and electronically signed by: ANGIE BARCENAS MD on Jun 10 2020 4:22PM EST [id number] [facility] CTA NECK W IVCONon 0 CTA NECK W IVCON * * *Final Report* * * DATE OF EXAM: Jun 10 2020 4:11PM [facility] 0024 - CTA NECK W IVCON / [...] extracranial soft tissues are grossly normal. NECK: Industrial Relations Analyst (topogram) images: Unremarkable Postop: There is a [...] CT BRAIN. NORMAL NECK AND INTRACRANIAL CTA. Home Attendant: RODO Transcribe Date/Time: Jun 10 2020 4:16P Dictated by : ANGIE BRACENAS MD This examination was interpreted and the report reviewed and electronically signed by: ANGIE BARCENAS MD on Jun 10 2020 4:22PM EST [id number] Normal [facility] Comp Metabolic Panelon 06-10 Albumin [Mass/Vol] 4.6 g/dL Normal 3.9-4.9 [facility] Comment on above: Performed By: #### C NIURKA CBCDIF ####[facility] [address] [place] [address] ALP [Catalytic activity/Vol] 88 U/L Normal 34-123 [facility] Comment on above: Performed By: #### C NIURKA CBCDIF ####[facility] [address] [place] [address] ALT [Catalytic activity/Vol] 13 U/L Normal 7-38 [facility] Comment on above: Performed By: #### C NIURKA, CBCDIF ####[facility] [address] [place] [address] Anion gap [Moles/Vol] 12 mmol/L Normal 9-18 [facility] Comment on above: Performed By: #### C NIURKA, CBCDIF ####[facility] [address] [place] [address] AST [Catalytic activity/Vol] 16 U/L Normal 13-35 [facility] Comment on above: Performed By: #### C NIURKA, CBCDIF ####[facility] [address] [place] [address] Bilirubin [Mass/Vol] 0.6 mg/dL Normal 0.2-1.3 [facility] Comment on above: Performed By: #### C NIURKA, CBCDIF ####[facility] [address] [place] [address] Calcium [Mass/Vol] 9.4 mg/dL Normal 8.5-10.2 [facility] Comment on above: Performed By: #### C NIURKA, CBCDIF ####[facility] [address] [place] [address] Chloride [Moles/Vol] 106 mmol/L High 97-105 [facility] Comment on above: Performed By: #### C NIURKA, CBCDIF ####[facility] [address] CO2 [Moles/Vol] 25 mmol/L Normal 22-30 [facility] Comment on above: Performed By: #### C NIURKA, CBCDIF ####[facility] [address] [place] [address] Creatinine [Mass/Vol] 0.84 mg/dL Normal 0.58-0.96 [facility] Comment on above: Performed By: #### C NIURKA, CBCDIF ####[facility] [address] [place] [address] eGFR- Amer. >60 Normal [facility] Comment on above: Performed By: #### C NIURKA, CBCDIF ####[facility] [address] [place] [id number] GFR/1.73 sq M predicted among non-blacks MDRD (S/P/Bld) [Vol rate/Area] mL/min/{1.73_m2} Normal [facility] Comment on above: Result Comment: eGFR (Estimated [...] actual GFR. Performed By: #### C MP, CBCDIF ####[facility] [address] [place] [address] Glucose [Mass/Vol] 91 mg/dL Normal 74-99 [facility] Comment on above: Result Comment: The [place] Diabetes Association (ADA) provides guidance for cutoff [...] Standards of Medical Care in Diabetes 2016, [place] Diabetes Association. Diabetes Care. 2016.39(Suppl 1). Performed By: #### C MP, CBCDIF ####[facility] [address] [place] [phone] Potassium [Moles/Vol] 4.1 mmol/L Normal 3.7-5.1 [facility] Comment on above: Performed By: #### C MP, CBCDIF ####[facility] [address] [place] [address] Protein [Mass/Vol] 6.7 g/dL Normal 6.3-8.0 [facility] Comment on above: Performed By: #### C MP, CBCDIF ####[facility] [address] [place] [phone] Sodium [Moles/Vol] 143 mmol/L Normal 136-144 [facility] Comment on above: Performed By: #### C MP, CBCDIF ####[facility] [address] [place] [address] Urea nitrogen [Mass/Vol] 12 mg/dL Normal 7-21 [facility] Comment on above: Performed By: #### C NIURKA, CBCDIF ####[facility] [address] [place] [address] ED NOTEon 06-10-2020 ED NOTE HNO ID: [id number] Author: Catrina (Rn) BERNABE Stockton Service: ? Author Type: Registered Nurse Type: ED Notes Filed: 06/10/2020 4:46 PM Note Text: Discharged pt. with diagnosis of headache. Discharge and follow up instructions given. Pt. verbalized understanding of discharge instructions. Pt. has no further questions and/or concerns at this time. Heplock d/c'd. Pt. ambulates with steady gait. Normal [facility] ED NOTE HNO ID: [id number] Author: Catrina Zavala) BERNABE Stock[place] Service: ? Author Type: Registered Nurse Type: ED Notes Filed: 06/10/2020 3:42 PM Note Text: Pt placed on 1L NC per verbal order from Abelardo ROY. [facility] ED NOTE HNO ID: [id number] Author: Catrina (Rn) BERNABE [place] Service: ? Author Type: Registered [...] light within reach, ID, allergy band on. [facility] ED NOTE HNO ID: [id number] Author: Ann (Rn) BERNABE Ward Service: Nursing [...] denies vision changes, balance problem, or weakness [facility] ED PROV NOTEon 06-10-2020 ED PROV NOTE HNO ID: [id number] Author: Hans Reynolds Service: Emergency Medicine Author Type: Physician Type: ED Provider Notes Filed: 06/10/2020 7:31 PM Note Text: ED Provider Note Patient Name: Bo Jacob SERVICE DATE: 06/10/20 History Patient presents with: [...] strength in both upper and lower extremities, whrtii-cf-hjqf intact, trzk-wd-whqj intact, rapid alternative movements intact. Psychiatric: Behavior: [...] CT BRAIN. NORMAL NECK AND INTRACRANIAL CTA. Home Attendant: RODO Transcribe Date/Time: Jun 10 2020 4:16P Dictated by : ANGIE BARCENAS MD This examination was interpreted and the report reviewed and electronically signed by: ANGIE BARCENAS MD on Jun 10 2020 4:22PM EST CTA HEAD W IVCON Final Result IMPRESSION: NORMAL NONCONTRAST CT BRAIN. NORMAL NECK AND INTRACRANIAL CTA. Home Attendant: PSCMark Transcribe Date/Time: Jun 10 2020 4:16P Dictated by : ANGIE BARCENAS MD This examination was interpreted and the report reviewed and electronically signed by: ANGIE BARCENAS MD on Jun 10 2020 4:22PM EST CTA NECK W IVCON Final Result IMPRESSION: NORMAL NONCONTRAST CT BRAIN. NORMAL NECK AND INTRACRANIAL CTA. Home Attendant: PSC Transcribe Date/Time: Jun 10 2020 4:16P Dictated [...] Abs Lymph 1.71 1.00 - 4.00 k/uL Worth% 5.9 % Abs Worth 0.42 <0.87 k/uL Eosin% 1.4 % Abs [...] in writing to patient (patient guardian / franchise sales representative), who verbalized understanding. The attending who evaluated and managed this patient was Dr. Reynolds. This note was partially generated using Flipiture voice recognition system, and there may be some incorrect words, spellings, and punctuation that were not noted in checking the note before saving SIGNATURE: SHAW Graham 06/10/20 4467 Attending Note: I have personally performed a lmhy-rt-cevl assessment of the patient and have reviewed [...] new or worse symptoms Hans Reynolds 06/10/20 1931 [facility] ANES POSTPROC EVALon 020 ANES POSTPROC EVAL HNO ID: [id number] Author: Leo Velasquez Service: ? Author Type: Anesthesiologist Type: Anesthesia Postprocedure Evaluation Filed: 06/08/2020 4:16 PM Note Text: POST ANESTHESIA EVALUATION NOTE : 1955 Procedure Summary Date: 06/08/20 Room / Location: [place] OR / [place] OR Anesthesia Start: 1024 Anesthesia Stop: 1114 [...] SIGNATURE: Leo Velasquez MD PATIENT NAME: Bo Jacob DATE: June 08, 2020 TIME: 4:16 PM CSN: [id number] [facility] ANES PRE-OPon 06-08-2020 ANES PRE-OP HNO ID: [id number] Author: Leo Velasquez Service: ? Author Type: [...] BP 166/79 06/08/20 0822 Pulse Resp 20 06/08/20 0822 Temp 36.3 ?C (97.3 ?F) 06/08/20 08 SpO2 98 % 06/08/20821 Facility-Administered Medications as of 06/08/2020 Medication Dose [...] SIGNATURE: Leo Velasquez MD PATIENT NAME: Bo Jacob DATE: June 08, 2020 TIME: 9:21 AM CSN: [id number] [facility] BRIEF OP NOTon 06-08-2020 BRIEF OP NOT HNO ID: [id number] Author: Jose Haro Service: General Surgery Author Type: Physician Type: Brief Op Note Filed: 06/08/2020 11:16 AM Note Text: BRIEF OPERATIVE NOTATION FOR SURGICAL PROCEDURE. Bo Jacob 1955 [id number] female LOG ID: [id number] Surgery/Procedure Date: 06/08/2020 Incision/Procedure Start Time: 10:33 AM Incision Close/Procedure End Time: 11:03 AM Surgeon(s)/Proceduralist(s) and Fast Food Delivery Driver(s): Surgeon(s) and Role: * Jose Haro - Primary REFERRING PHYSICIAN: Outpatient DEPT: [place] PROVIDER: Flor POS: [id number] ANESTHESIA: Monitored Anesthesia Care ASA CLASS: 3 - Severe DIAGNOSIS: right breast cancer PROCEDURE: left Subclavian portacath - 25178-319 and Fluoroscopic for vascular access - 81544-776-84 IVF: 700 EBL: 10 Specimens: ADDITIONAL DIAGNOSES: FINDINGS: COMPLICATIONS: None PMHx - PAST MEDICAL HISTORY Diagnosis Date - Arthritis - Breast cancer (HCC) 04/07/2020 - Ectopic fetus tube removed - Hypertension - Irregular heart beat COMORBIDITIES - Current Cancer Therapy Post Op Occurrences - None Wound Classification - Clean Operative note dictated in the dictation system. - [id number] Jose Haro MD [facility] HISTORY PHYSICALon 0 HISTORY PHYSICAL HNO ID: [id number] Author: Jose Haro Service: General Surgery Author Type: Physician Type: HANDP Filed: 06/08/2020 10:06 AM Note Text: HISTORY AND PHYSICAL ? Bo Jennifer Jacob 1955 ? ? REFERRING PHYSICIAN: ? CHIEF [...] ? Planned Procedure: left Subclavian portacath - 03345-787 and Fluoroscopic for vascular access - 71440-937-84 ? Patient Weight Last 1 Encounter Wt Readings: Date: Wt: 05/31/2020 81.2 kg (179 lb) ? Antibiotic: Ancef 2gm IVPB home improvement contractor to OR ? Planned Anesthetic: MAC with local ? I ??? plan to access the port at the time of surgery. ? The patient was offered a surgery/procedure at a [facility] facility. The surgeon/proceduralist and patient have [...] encounter diagnosis) ? __ Jose Haro MD [facility] OPERATIVE NOon 06-08-2020 OPERATIVE NO HNO ID: [id number] Author: Jose Haro Service: General Surgery Author Type: Physician Type: Operative Report Filed: 06/08/2020 1:08 PM Note Text: [facility] - Operative Report BO JCAOB : 1955 AGE: 64. SEX: F PATIENT TYPE: A HOSP C: [facility] LOCATION: [facility] ATTENDING PHYSICIAN: Jose Haro M.D. CSN NUMBER: [id number] DATE OF SURGERY/PROCEDURE: 06/08/2020 INCISION/PROCEDURE START TIME: 10:32 a.m. INCISION CLOSE/PROCEDURE END TIME: 11:03 a.m. PREOPERATIVE DIAGNOSIS: Right breast cancer, need for IV access. POSTOPERATIVE DIAGNOSIS: Left subclavian Port-A-Cath placement with fluoroscopy. SURGEON: Jose Haro M.D. UNHAIRING INSPECTOR: SURGERY/PROCEDURE: Left subclavian portacath placement with fluoroscopy ANESTHESIA: Local MAC. LOG ID: [id number]. ANESTHESIOLOGIST: Leo Velasquez. ASA: 3. INTRAVENOUS FLUIDS: 700 mL. ESTIMATED BLOOD LOSS: 10 mL. URINE OUTPUT: No catheter. FINDINGS: As described above. SPECIMENS: None. DRAINS: None. COMPLICATIONS: None. DISPOSITION: Patient was taken to PACU in stable condition. IMPLANTS: PowerPort reference #[id number], lot #[id number], expires 06/18/2021. DESCRIPTION OF PROCEDURE: Patient's left [...] for postprocedure chest x-ray. Jose Haro M.D. RG:[id number] /[id number] Normal [facility] XR CHEST 1V FRONTAL PORTon 1 [...] silhouette. IMPRESSION: Status post LEFT Mediport placement Home Attendant: RODO Transcribe Date/Time: Jun 08 2020 12:06P Dictated by : JESSIE LOUIS MD This examination was interpreted and the report reviewed and electronically signed by: JESSIE LOUIS MD on Jun 08 2020 12:07PM EST [id number] [facility] HOSPon 05-31-2020 HOSP Patient:Emmy Jacob MRN: Height:5' 2.75(1.594 m) Weight:179 lb (81.194 [...] for the following basenames: K,HCT Progress Notes ([facility]): Estuardo Chaudhari 05/31/2020 3:48 PM Signed 06-08-2020 Port placement Progress Notes ([facility]): Raymond Byrne SHIELA 05/31/2020 3:04 PM Signed REVIEW OF SYSTEMS: [...] 6:40 PM Signed HISTORY AND PHYSICAL Bo Jacob 1955 REFERRING PHYSICIAN: CHIEF COMPLAINT: HPI: The [...] procedure. Planned Procedure: left Subclavian portacath - 34074-006 and Fluoroscopic for vascular access - 57239-773-56 Patient Weight Last 1 Encounter Wt Readings: Date: Wt: 05/31/2020 81.2 kg (179 lb) Antibiotic: Ancef 2gm IVPB home improvement contractor to OR Planned Anesthetic: MAC with local I ??? plan to access the port at the time of surgery. The patient was offered a surgery/procedure at a [facility] facility. The surgeon/proceduralist and patient have [...] (primary encounter diagnosis) __ Jose Haro MD [facility] ALLIED HEALTH 04-22-2020 ALLIED HEALTH HNO ID: [id number] Author: GAVI Avila (Ct) Service: Nuclear Medicine Author Type: Clinical Maint Mechanic Type: Allied Health Filed: 04/22/2020 11:06 AM [...] to IP transport area for return to [facility]/ICU/ED. A Diagnostic radioactive procedure has taken place, with no further precautions necessary other than routine body substance precautions. More information regarding radiation safety can be found using this link: [email or web address]%[email or web address] %[email or web address] f SIGNATURE: GAVI Avila PATIENT NAME: Bo Jacob DATE: April 22, 2020 TIME: 11:05 AM PAGER/CONTACT #: [facility] ANES POSTPROC EVALon 020 ANES POSTPROC EVAL HNO ID: [id number] Author: Raymond Rocha Service: ? Author Type: Anesthesiologist Type: Anesthesia Postprocedure Evaluation Filed: 04/22/2020 4:20 PM Note Text: POST ANESTHESIA EVALUATION NOTE : 1955 Procedure Summary Date: 04/22/20 Room / Location: [place] OR04 / [place] Anesthesia Start: 1242 Anesthesia Stop: 1419 [...] SIGNATURE: Raymond Rocha MD PATIENT NAME: Bo Jacob DATE: April 22, 2020 TIME: 4:20 PM CSN: [id number] [facility] ANES PRE-OPon 04-22-2020 ANES PRE-OP HNO ID: [id number] Author: Raymond Rocha Service: ? Author Type: [...] Vitals Value Taken Time BP 141/86 04/22/20 0801 Pulse 80 04/22/20 0801 Resp 16 04/22/20 0801 Temp 36.2 ?C (97.2 ?F) 04/22/20 0801 SpO2 99 % 04/22/20 0801 Facility-Administered Medications as of 04/22/2020 Medication Dose [...] SIGNATURE: Raymond Rocha MD PATIENT NAME: Bo Jacob DATE: April 22, 2020 TIME: 12:18 PM CSN: [id number] [facility] BRIEF OP NOTon 04-22-2020 BRIEF OP NOT HNO ID: [id number] Author: Jose Haro Service: General Surgery Author Type: Physician Type: Brief Op Note Filed: 04/22/2020 2:31 PM Note Text: BRIEF OPERATIVE NOTATION FOR SURGICAL PROCEDURE. Bo Jacob 1955 [id number] female LOG ID: [id number] Surgery/Procedure Date: 04/22/2020 Incision/Procedure Start Time: 1:13 PM Incision Close/Procedure End Time: 2:09 PM Surgeon(s)/Proceduralist(s) and Fast Food Delivery Driver(s): Surgeon(s) and Role: * Jose Haro - Primary Registered Nurse Instructional Design Specialist: Marisabel (Rn) BERNABE Cantrell REFERRING PHYSICIAN: Outpatient DEPT: W[facility] PROVIDER: [facility] POS: [id number] ANESTHESIA: General ASA CLASS: 3 - Severe DIAGNOSIS: right upper inner breast cancer PROCEDURE: right preoperative stereotactic guided needle placement - 18191 LUMPECTOMY, WITH SENTINEL LYMPH NODE BIOPSY, Radiotracter identification - [id number], [id number], 46578-?, [id number], [id number], [id number] IVF: 800 EBL: 25 Specimens: right axillary SLNBx, Right lumpectomy ADDITIONAL DIAGNOSES: FINDINGS: good radiographic margins COMPLICATIONS: None PMHx - PAST MEDICAL HISTORY Diagnosis Date - Arthritis - Breast cancer (HCC) 04/07/2020 - Ectopic fetus tube removed - Irregular heart beat COMORBIDITIES - None Post Op Occurrences - None Wound Classification - Clean Operative note dictated in the dictation system. - [id number] Jose Haro MD [facility] HISTORY PHYSICALon 0 HISTORY PHYSICAL HNO ID: [id number] Author: Jose Haro Service: General Surgery Author Type: Physician Type: HANDP Filed: 04/22/2020 12:24 PM Note Text: HISTORY AND PHYSICAL - BREAST CANCER ? Bo Jacob 1955 April 11, 2020 ? ? REFERRING [...] clip placement: - Invasive ductal carcinoma, provisional [place] grade 3. ? RESULTS Estrogen Receptor (ER) [...] patient was offered a surgery/procedure at a [facility]. The surgeon/proceduralist and patient have discussed [...] right preoperative stereotactic guided needle placement - 46397 LUMPECTOMY, WITH SENTINEL LYMPH NODE BIOPSY, Radiotracter identification - [id number], [id number], 35843-?, 09375, [id number], [id number] ? Anticipated Anesthetic: General ? Patient weight: Blood pressure 136/85, pulse 97, height 160 cm (5' 3), weight 81.2 kg (179 lb). BMI: Body mass index is 31.71 kg/m?. ? Planned antibiotic: Ancef 2gm IVPB home improvement contractor to [place] ? SCDs needed - Yes ? Fast Food Delivery Driver Needed - Yes ? Diagnoses: (C50.411) Malignant neoplasm of upper-outer quadrant of right female breast, unspecified estrogen receptor status (HCC) (primary encounter diagnosis) ? ? Return to Clinic: The patient is instructed to follow-up with me 1 week post operatively. ? __ Jose Haro MD [facility] DIAGNOSTIC RTon 04-22-20 20 [facility] DIAGNOSTIC RT * * *Final Report* * * DATE OF EXAM: Apr 22 2020 11:26AM CHRIS 0626 - [facility] DIAGNOSTIC RT / PROCEDURE REASON: s/p needle localization * * * * Physician Interpretation * * * * #[id number] - [facility] DIAGNOSTIC RT #[id number] - [facility] SURGICAL BREAST SPECIMEN RT UNILATERAL RIGHT DIGITAL DIAGNOSTIC MAMMOGRAM WITH CAD: 04/22/2020 HISTORY: S/P Needle Localization S/P Lumpectomy. RESULT: TECHNIQUE: The study was acquired using full field digital technology and interpreted from soft copy. Current study was also evaluated with a Computer Aided Detection (CAD). Comparison is made to exams dated: 04/05/2020 mammogram, 04/04/2020 mammogram - [facility], 10/24/2017 mammogram, and 10/11/2017 mammogram. There are [...] exams dated: 04/05/2020 mammogram, 04/04/2020 mammogram - [facility], 10/24/2017 mammogram, and 10/11/2017 mammogram. RIGHT BREAST SPECIMEN RADIOGRAPH: Indication: Biopsy-proven carcinoma Result: A specimen submitted for radiography includes the mass noted on the preoperative imaging. IMPRESSION: SPECIMEN IMPRESSION: BIRADS 6 - Known malignancy. Completed excisional breast biopsy. Recommendation: Correlation with pathology result from biopsy specimen. Cindy villalobos/charlene:04/22/2020 16:35:05 Permastone Installer(s): RT Yunior(R)(M), [facility] Mammogram BI-RADS: Post-procedure mammogram for marker placement [...] Health, Family Medicine, and Medical/Surgical Oncology, the [facility] has carefully reviewed the data and [...] their providers when to stop screening mammograms. Home Attendant: Charlene Transcribe Date/Time: Apr 22 2020 11:21A Dictated by : CINDY LONDONO MD This examination was interpreted and the report reviewed and electronically signed by: CINDY LONDONO MD on Apr 22 2020 4:35PM EST [id number] Normal [facility] SURGICAL BREAST SPECIMEN RTon 04-22-2020 [facility] SURGICAL BREAST SPECIMEN RT * * *Final Report* * * DATE OF EXAM: Apr 22 2020 1:56PM CHRIS 0639 - [facility] SURGICAL BREAST SPECIMEN RT / PROCEDURE REASON: s/p lumpectomy * * * * Physician Interpretation * * * * #[id number] - [facility] DIAGNOSTIC RT #[id number] - [facility] SURGICAL BREAST SPECIMEN RT UNILATERAL RIGHT DIGITAL DIAGNOSTIC MAMMOGRAM WITH CAD: 04/22/2020 HISTORY: S/P Needle Localization S/P Lumpectomy. RESULT: TECHNIQUE: The study was acquired using full field digital technology and interpreted from soft copy. Current study was also evaluated with a Computer Aided Detection (CAD). Comparison is made to exams dated: 04/05/2020 mammogram, 04/04/2020 mammogram - [facility], 10/24/2017 mammogram, and 10/11/2017 mammogram. There are [...] exams dated: 04/05/2020 mammogram, 04/04/2020 mammogram - [facility], 10/24/2017 mammogram, and 10/11/2017 mammogram. RIGHT BREAST SPECIMEN RADIOGRAPH: Indication: Biopsy-proven carcinoma Result: A specimen submitted for radiography includes the mass noted on the preoperative imaging. IMPRESSION: SPECIMEN IMPRESSION: BIRADS 6 - Known malignancy. Completed excisional breast biopsy. Recommendation: Correlation with pathology result from biopsy specimen. Cindy villalobos/charlene:04/22/2020 16:35:05 Permastone Installer(s): Shelley Bravo RT(R)(M), [facility] Mammogram BI-RADS: Post-procedure mammogram for marker placement [...] Health, Family Medicine, and Medical/Surgical Oncology, the [facility] has carefully reviewed the data and [...] their providers when to stop screening mammograms. Home Attendant: Charlene Transcribe Date/Time: Apr 22 2020 11:21A Dictated by : CINDY LONDONO MD This examination was interpreted and the report reviewed and electronically signed by: CINDY LONDONO MD on Apr 22 2020 4:35PM EST [id number] [facility] US LOC BREAST RTon 04-22 [facility] US LOC BREAST RT * * *Final Report* * * DATE OF EXAM: Apr 22 2020 11:31AM TONI 0600 - [facility] US LOC BREAST RT / PROCEDURE REASON: RT BREAST LESION * * * * Physician Interpretation * * * * TECHNIQUE: [facility] US LOC BREAST RT COMPARISON: Mammogram from [...] of a mass in the right breast. Home Attendant: RODO Transcribe Date/Time: Apr 22 2020 4:35P Dictated by : CINDY LONDONO MD This examination was interpreted and the report reviewed and electronically signed by: CINDY LONDONO MD on Apr 22 2020 4:42PM EST [id number] [facility] NM LYMPH NODE IMAGINGon Lymphocytes (Bld) [...] SENTINEL LYMPH NODES IDENTIFIED, RIGHT AXILLARY REGION. Home Attendant: PSCB Transcribe Date/Time: Apr 22 2020 11:19A Dictated by : PADMA JIMENEZ MD This examination was interpreted and the report reviewed and electronically signed by: PADMA JIMENEZ MD on Apr 22 2020 11:25AM EST [id number] [facility] OPERATIVE NOon 04-22-2020 OPERATIVE NO HNO ID: [id number] Author: Jose Haro Service: General Surgery Author Type: Physician Type: Operative Report Filed: 04/25/2020 8:36 AM Note Text: [facility] - Operative Report MADELINE JACOBSE Rodriguez : 1955 AGE: 64. SEX: F PATIENT TYPE: A HOSP SVC: GENS LOCATION: [facility] ATTENDING PHYSICIAN: Jose Haro M.D. CSN NUMBER: [id number] DATE OF SURGERY/PROCEDURE: 04/22/2020 INCISION/PROCEDURE START TIME: 1:13 p.m. INCISION CLOSE/PROCEDURE END TIME: 2:09 p.m. PREOPERATIVE DIAGNOSIS: Right upper outer quadrant breast cancer. POSTOPERATIVE DIAGNOSIS: Successful sentinel lymph node biopsy and good radiographic margins at right upper inner quadrant lumpectomy site. SURGEON: Jose Haro M.D. UNHAIRING INSPECTOR: KOBY House. SURGERY/PROCEDURE: Right preoperative stereotactic-guided needle placement, lumpectomy with sentinel lymph node biopsy using radiotracer and Lymphazurin Blue for node identification. ANESTHESIA: LMA. LOG ID: [id number]. ANESTHESIOLOGIST: Dr. Raymond Rocha. ASA: 3. INTRAVENOUS FLUIDS: 800 mL. ESTIMATED BLOOD LOSS: 25. URINE OUTPUT: No catheter. FINDINGS: As described above. SPECIMEN: [place] lymph nodes x2 nodes sent and lumpectomy [...] in stable condition. Marisabel Calvo was my BRAKE LINING CURER. She assisted in retraction, visualization, identification of structures and to perform subcuticular closure. There were no surgeons or qualified residents available. Jose Haro M.D. RG:[id number] /[id number] Normal [facility] OPERATIVE NO HNO ID: [id number] Author: Jose Haro Service: General Surgery Author Type: Physician Type: Operative Report Filed: 04/26/2020 10:37 AM Note Text: [facility] - Operative Report BO JACOB : 1955 AGE: 64. SEX: F PATIENT TYPE: A HOSP SV: [facility] LOCATION: [facility] ATTENDING PHYSICIAN: Jose Haro M.D. CSN NUMBER: [id number] DATE OF SURGERY/PROCEDURE: 04/22/2020 INCISION/PROCEDURE START TIME: 1:13 p.m. INCISION CLOSE/PROCEDURE END TIME: 2:09 p.m. PREOPERATIVE DIAGNOSIS: Right upper outer quadrant breast cancer. POSTOPERATIVE DIAGNOSIS: Successful sentinel lymph node biopsy and good radiographic margins at right upper inner quadrant lumpectomy site. SURGEON: Jose Haro M.D. UNHAIRING INSPECTOR: Marisabel Cantrell RN SURGERY/PROCEDURE: Right preoperative stereotactic-guided needle placement, lumpectomy with sentinel lymph node biopsy using radiotracer and Lymphazurin Blue for node identification. ANESTHESIA: LMA. LOG ID: [id number]. ANESTHESIOLOGIST: Dr. Raymond Rocha. ASA: 3. INTRAVENOUS FLUIDS: 800 mL. ESTIMATED BLOOD LOSS: 25. URINE OUTPUT: No catheter. FINDINGS: As described above. SPECIMEN: [place] lymph nodes x2 nodes sent and lumpectomy [...] brought to recovery in stable condition. Marisabel Samuelsbrittanyjocelin was my BRAKE LINING CURER. She assisted in retraction, visualization, identification of structures and to perform subcuticular closure. There were no surgeons or qualified residents available. Jose Haro M.D. RG:[id number] revised 04/26/2020 [facility] [place] /[id number] [facility] PT EDon 04-22-2020 PT ED HNO ID: [id number] Author: Jocelyn Anne RN Service: ? Author Type: Registered [...] Signed By: Jocelyn Anne RN In Department: [facility] SURGERY [facility] PT ED HNO ID: [id number] Author: Didier Campa RN Service: Nursing Author Type: Registered [...] Signed By: Didier Campa RN In Department: [facility] SURGERY [facility] PT ED HNO ID: [id number] Author: Randa (Rn) Anne RN Service: Nursing Author Type: Registered Nurse [...] AFFECTING LEARNING: None Electronically Signed By: Randa Rodríguez RN In Department: [facility] SURGERY [facility] SURGICAL PATHOLOGYon 020 SURGICAL PATHOLOGY Specimen originated from [facility] Specimen #: [id number] Submitting Physician: Jose Haro M.D. FINAL DIAGNOSIS 1. Right axillary lymph node #1-2000 and #2-600, sentinel node biopsies (A) - Three lymph nodes, negative for metastatic malignancy (0/3). 2. 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, measuring 1.8 cm in greatest [...] pT1c Regional Lymph Nodes (pN): Modifier: (sn): [place] node(s) evaluated Category (pN): pN0 Distant metastasis: Distant Metastasis (pM) Not applicable/Not confirmed pathologically in this case Estrogen & progesterone receptors: Previously performed and reported as follows: Estrogen receptor: Positive (>95%, strong) Progesterone receptor: Positive (90%, strong) Specimen number #: [id number] (HER2) ERBB2 Status: Previously performed and reported as follows: HER2:Positive (3+) Specimen number #: [id number] Still Worker Helper Tumor Block: Specify: B9 -- Farzana Mejia [...] margins. No other gross lesions are identified. Still Worker Helper sections are submitted as follows: B1 slice [...] into formalin was 14:15 hours on 04/22/20. Murphy 04/26/2020 Gross examination performed at [facility], [address] [place], [place] [address] [id number] Date of Report: 05/02/2020 Date of Procedure: 04/22/2020 Date of Receipt: 04/22/2020 Submitted by: Jose Haro M.D. Location: [facility] Diagnostic interpretation performed at [facility], [address] [place] [address]. CLIA Number: [id number] [facility] HISTORY PHYSICALon 0 HISTORY PHYSICAL HNO ID: [id number] Author: Lorna (Kd Witt Service: ? Author Type: Nurse Practitioner Type: HANDP Filed: 04/20/2020 9:23 AM Note Text: HISTORY AND PHYSICAL EXAMINATION SERVICE DATE: 04/20/2020 SERVICE TIME: 8:48 AM PRIMARY CARE PHYSICIAN: Loan Dias NP REASON FOR VISIT: Bo Jacob is a 64 year old female who [...] Prior to Admission medications as of 04/20/20 0915 Medication Sig Last Dose Taking amLODIPine (NORVASC) [...] fevers. Neuro: No history of TIA's, stroke, PSYCHIATRIC SECURITY NURSE tumor, impaired sensorium, hemiplegia, paraplegia or quadraplegia. No neurological symptoms or problems. Respiratory:(+) Former cigarette smoker No history of current cough or dyspnea, or pneumonia in the past 6 weeks. No history of respiratory/pulmonary symptoms or problems. Cardiovascular: (+) Irregular HB- hx of PVC's, asymptomatic (+) HTN-controlled on Rx. No history of HLD, angina, CHF, [place], cardiac surgery or stent. 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 SIGNATURE: Lorna Witt APRN.ARELY PATIENT NAME: Bo Jacob DATE: April 20, 2020 TIME: 8:48 AM PAGER/CONTACT #: [facility] NURSING PROGon 04-20-2020 NURSING PROG HNO ID: [id number] Author: Consuelo Mullins (Rn) BERNABE Rios Service: [...] Rios RN April 20, 2020 11:07 AM [facility] HOSPon 04-11-2020 HOSP Patient:Emmy Jacob MRN: Height:5' 3(1.6 m) Weight:184 lb (83.462 [...] for the following basenames: K,HCT Progress Notes ([facility]): Jose Haro MD 04/11/2020 6:06 PM Signed HISTORY AND PHYSICAL - BREAST CANCER Bo Jacob 1955 April 11, 2020 REFERRING PHYSICIAN: Marisabel [...] patient was offered a surgery/procedure at a [facility]. The surgeon/proceduralist and patient have discussed [...] right preoperative stereotactic guided needle placement - 64053 LUMPECTOMY, WITH SENTINEL LYMPH NODE BIOPSY, Radiotracter identification - [id number], [id number], [id number] [id number], [id number], [id number] Anticipated Anesthetic: General Patient weight: Blood pressure 136/85, pulse 97, height 160 cm (5' 3), weight 81.2 kg (179 lb). BMI: Body mass index is 31.71 kg/m?. Planned antibiotic: Ancef 2gm IVPB home improvement contractor to [place] SCDs needed - Yes Fast Food Delivery Driver Needed - Yes Diagnoses: (C50.411) Malignant neoplasm of upper-outer quadrant of right female breast, unspecified estrogen receptor status (HCC) (primary encounter diagnosis) Return to Clinic: The patient is instructed to follow-up with me 1 week post operatively. __ Jose Haro MD Previous Version Progress Notes ([facility]): Barbara Shultz RN 04/07/2020 3:10 PM Signed Call from Breast Center Coordinator Ursula Harmon at [facility] to request appointment with Dr Cummings for breast surgery consult. Dr Cummings is out of office from 04/08/20 to 04/27/20. May need to offer anther surgeon due to diagnosis of breast cancer. Message routed to [facility] to assist with calling patient to schedule appointment for Breast Surgery Consult Barbara Shultz RN 04/07/2020 4:19 PM Signed Phyllis Wise You; Edna Mob Oa Pool 6th Floor; Edna Gen Surg Adjunct Psychology Instructor's Pool; Catrina Reeder 3 minutes ago (4:15 PM) Patient is scheduled for 04/11/[address] Haro Encounter closed. Normal [facility] DIAGNOSTIC RTon 04-05-20 [facility] DIAGNOSTIC RT * * *Final Report* * * * * * SEE BOTTOM OF REPORT FOR ADDENDED TEXT * * * DATE OF EXAM: Apr 05 2020 9:17AM CHRIS 0626 - [facility] DIAGNOSTIC RT / PROCEDURE REASON: RIGHT BREAST BIOPSY * * * * Physician Interpretation * * * * FINAL REPORT #[id number] - [facility] DIAGNOSTIC RT #[id number] - [facility] US BIOPSY BREAST RT ULTRASOUND GUIDED BIOPSY [...] procedure. Audible Time Out: 0857 Procedure Start: 0859 Procedure End: 900 PROCEDURE: Correlation is made to exams dated: 04/04/2020 mammogram and 04/04/2020 ultrasound - [facility]. An ultrasound guided biopsy using real-time ultrasound [...] dated: 04/04/2020 mammogram and 04/04/2020 ultrasound - [facility]. There are scattered fibroglandular elements in right [...] 15:00:42 copy to: GUY ARAYA, ph: [phone] Permastone Installer(s): RT Jason(R)(M), [facility]; Caridad Ramey, [facility] Mammogram BI-RADS: Post-procedure mammogram for marker placement [...] Health, Family Medicine, and Medical/Surgical Oncology, the [facility] has carefully reviewed the data and [...] their providers when to stop screening mammograms. Home Attendant: Charlene Transcribe Date/Time: Apr 05 2020 8:39A Dictated by : GUY ARAYA MD This examination was interpreted and the report reviewed and electronically signed by: GUY ARAYA MD on Apr 05 2020 9:29AM EST This document has been addended by: GUY ARAYA MD on Apr 07 2020 3:00PM EST [id number] Normal [facility] US BIOPSY BREAST RTon [facility] US BIOPSY BREAST RT * * *Final Report* * * * * * SEE BOTTOM OF REPORT FOR ADDENDED TEXT * * * DATE OF EXAM: Apr 05 2020 9:09AM U 0598 - [facility] US BIOPSY BREAST RT / PROCEDURE REASON: R92.8-Abnormal finding on radiological examination of breast * * * * Physician Interpretation * * * * FINAL REPORT #[id number] - [facility] DIAGNOSTIC RT #[id number] - [facility] US BIOPSY BREAST RT ULTRASOUND GUIDED BIOPSY [...] procedure. Audible Time Out: 0857 Procedure Start: 59 Procedure End: 900 PROCEDURE: Correlation is made to exams dated: 04/04/2020 mammogram and 04/04/2020 [facility]. An ultrasound guided biopsy using real-time [...] to exams dated: 04/04/2020 mammogram and 04/04/2020 [facility]. There are scattered fibroglandular elements in [...] 15:00:42 copy to: GUY ARAYA, ph: [phone] Permastone Installer(s): Lori Bueno RT(R)(M), [facility]; Caridad Ramey, [facility] Mammogram BI-RADS: Post-procedure mammogram for marker placement [...] Health, Family Medicine, and Medical/Surgical Oncology, the [facility] has carefully reviewed the data and [...] their providers when to stop screening mammograms. Home Attendant: Charlene Transcribe Date/Time: Apr 05 2020 8:39A Dictated by : GUY ARAYA MD This examination was interpreted and the report reviewed and electronically signed by: GUY ARAYA MD on Apr 05 2020 9:29AM EST This document has been addended by: GUY ARAYA MD on Apr 07 2020 3:00PM EST [id number] Normal [facility] SURGICAL PATHOLOGYon 020 SURGICAL PATHOLOGY ADDITIONAL PROCEDURES PRESENT Specimen originated from [facility] Specimen #: [id number] Submitting Physician: GUY ARAYA MD FINAL DIAGNOSIS [...] in-situ hybridization tests have been determined by [facility] Medicine [place] ([facility]) in a manner consistent with CLIA requirements. One or more of these tests have not been cleared or approved by the FDA. [facility] is regulated under CLIA as qualified to [...] Receptor: Food and Drug Administration (FDA) cleared: [employer], [place], [place] Primary Antibody: SP1 Progesterone Receptor: FDA cleared: [employer], [place], [place] Primary Antibody: IE2 HER2 (ERBB2) by IHC: FDA cleared: [employer], [place], [place] Primary Antibody: 4B5 The hormone receptor tests were performed and reported according to Estrogen and Progesterone Receptor Testing in Breast Cancer: [place] Society of Clinical Oncology/College of Welsh PathologistsGuidelineUpdate . Arch Pathol Lab Med.2020May;144(5):545-563. doi: 10.5858/arpa.0346-5584-NA. Wjef5560Nkg 13. The hormone receptor assays have been internally validated on decalcified tissues. Estrogen and progesterone receptor results are valid if tissue was processed according to ASCO/CAP guidelines. Antibody and Detection System: [employer] Pathway anti-HER2 rabbit monoclonal antibody (clone 4B5), [place] anti-estrogen receptor rabbit monoclonal antibody (clone SP1) and [place] anti-progesterone receptor rabbit monoclonal antibody (clone IE2) detected with the [place] [place] [employer] iView Detection System (indirect biotin streptavidin detection); [employer], [place], [place]. Control slides: Cell line controls with [...] accordance with the guidelines approved by the [place] Society of Clinical Oncologists and the College of [place] Pathologists. Zafar BERMUDEZ et al. Arch Pathol [...] < 1 minute(s) Gross examination performed at [facility], [address] [place], [place] [id number] EJL 04/05/2020 3:18:49 PM Date of Report: 04/07/2020 Date of Procedure: 04/05/2020 Date of Receipt: 04/05/2020 Submitted by: GUY ARAYA MD Location: [facility] Diagnostic interpretation performed at [facility], [facility] Jose Calixto, [facility] [address]. CLIA Number: [id number] Normal [facility] DIAGNOSTIC BILon 020 [facility] DIAGNOSTIC TRACEE * * *Final Report* * * DATE OF EXAM: Apr 04 2020 8:29AM W 0620 - [facility] DIAGNOSTIC TRACEE / PROCEDURE REASON: right breast mass * * * * Physician Interpretation * * * * #[id number] - [facility] DIAGNOSTIC TRACEE #[id number] - [facility] US BREAST LTD RT BILATERAL DIGITAL DIAGNOSTIC [...] Health, Family Medicine, and Medical/Surgical Oncology, the [facility] has carefully reviewed the data and [...] their providers when to stop screening mammograms. Permastone Installer(s): Shelley Bravo RT(R)(M), [facility]; Caridad Ramey, [facility] OVERALL STUDY BIRADS: 5 Highly suggestive of malignancy - Appropriate action should be taken Home Attendant: Charlene Transcribe Date/Time: Apr 04 2020 8:17A Dictated by : ANDREIA GREENWOOD MD This examination was interpreted and the report reviewed and electronically signed by: ANDREIA GREENWOOD MD on Apr 04 2020 10:19AM EST [id number] Normal [facility] US BREAST LTD RTon 04-04 [facility] US BREAST LTD RT * * *Final Report* * * DATE OF EXAM: Apr 04 2020 9:39AM TONI 0594 - [facility] US BREAST LTD RT / PROCEDURE REASON: breast mass * * * * Physician Interpretation * * * * #[id number] - [facility] DIAGNOSTIC TRACEE #[id number] - DEISY US BREAST LTD RT BILATERAL DIGITAL DIAGNOSTIC [...] Health, Family Medicine, and Medical/Surgical Oncology, the [facility] has carefully reviewed the data and [...] their providers when to stop screening mammograms. Permastone Installer(s): RT Yunior(R)(M), [facility]; Caridad Ramey, [facility] OVERALL STUDY BIRADS: 5 Highly suggestive of malignancy - Appropriate action should be taken Home Attendant: Charlene Transcribe Date/Time: Apr 04 2020 8:17A Dictated by : ANDREIA GREENWOOD MD This examination was interpreted and the report reviewed and electronically signed by: ANDREIA GREENWOOD MD on Apr 04 2020 10:19AM EST [id number] [facility] PROGRESSon 04-04-2020 PROGRESS HNO ID: [id number] Author: GAVI Mojica (Ct) Service: Radiology Author Type: Clinical Maint Mechanic Type: Progress Notes Filed: 04/04/2020 8:29 AM Note Text: Radiology Service Progress Note PATIENT NAME: Bo Jacob DATE OF SERVICE: April 04, 2020 TIME: [...] GAVI Mojica April 04, 2020 8:29 AM [facility] PROGRESS HNO ID: [id number] Author: Caridad Kwon) GAVI Ramey Service: Radiology Author Type: Clinical Maint Mechanic Type: Progress Notes Filed: 04/04/2020 9:42 AM Note Text: Radiology Service Progress Note PATIENT NAME: Bo Jacob DATE OF SERVICE: April 04, 2020 TIME: [...] IV DATA: Not applicable SIGNED BY: GAVI De León April 04, 2020 9:42 AM [facility] CNTHERAPYon 05-03-2018 CNTHERAPY OT/PT/Speech Visit (PTMDRG) -------BO JACOB ([id number]) 1955 [facility] Time Provider Department05/03/18 8:45 AM ROSSY WILSON (PT) PTMDRGEncounter Number: [id number] Time Provider Department [place]05/03/2018 8:45 AM [id number] WILSON (P*PTMDRG [facility] for Visit: Physical Therapy [503]Primary Visit Diagnosis:Dizziness [R42]Allergies As of Date: 05/03/2018(No Known Allergies)Date Reviewed: 03/20/2018Reviewed by: Sony Zavala) [...] tablet by mouth every *Progress Notes:Rossy Wilson, PT 05/03/2018 9:27 AM AddendumEpisode Visit Count: 2Therapist That Will Oversee The Plan Of Care: rossy velázquezcarmelahStart of Care Date: 04/24/18Onset Date: 03/25/18Plan of [...] NegativeSmooth pursuit: (undershoots x 1 to right)Right John-Halpike Comments: immediate brief minor R torsion with sx's ++ :retest no sx's, slight L beat tendencyLeft John-Halpike Comments: negative allTREATMENT:Self-Intermediate Management:1: vestibular anatomy and mechanism of operation, [...] 3-4 hours.Billing:Nevaeh: Self Care / Home Management (77085): 1:1 time: 10 minutes (1 unit:8-22 mins)Canalith Repositioning (69811) 1 unit (untimed)Total time: 30 minutesAyesha Luo Version ------ Normal [facility] PROGRESSon 05-03-2018 Protein mass conc HNO ID: [id number] thor: Rossy (Pt) ReuschService: (none)Author Type: Physical [...] NegativeSmooth pursuit: (undershoots x 1 to right)Right John-Halpike Comments: immediate brief minor R torsion with sx's ++: retest no sx's, slight L beat tendencyLeft Clinton-Halpike Comments: negative allTREATMENT:Self-Intermediate Management:1: vestibular anatomy and mechanism of operation, [...] patient in post repositioning procedures including upright 3-4hours.Billing:Edna: Self Care / Home Management (86662): 1:1 time: 10 minutes (1unit: 8-22 mins)Canalith Repositioning (11026) 1 unit (untimed)Total time: 30 minutesRossy Wilson PT [facility] CNTHERAPYon 04-24-2018 CNTHERAPY OT/PT/Speech Visit (PTMDRG) -------BO JACOB ([id number]) 1955 FDate Time Provider Department04/24/18 1:45 PM ROSSY WILSON (PT) PTMDRGEncounter Number: [id number] Time Provider Department [place]04/24/2018 1:45 PM [id number] WILSON (P*PTMDRG [facility] CReason for Visit: PT Eval [747] Patient Education [91]Primary Visit Diagnosis:Dizziness [R42]Allergies As [...] by mouth every *Progress Notes:Rossy Wilson PT 04/25/2018 12:57 PM SignedEpisode Visit Count: 1Therapist That Will Oversee The Plan Of Care: rossy Spencetart of Care Date: 04/24/18Onset Date: 03/25/18Plan of Care Certification Date: 04/24/18Patient Identified by Name and Date of : YesREHABILITATION AND SPORTS THERAPYPHYSICAL THERAPY EVALUATIONPLAN OF CARE:Assessment: Bo Jacob presents with the chief complaint of dizziness.She presents with impairments of decreased positional tolerance. She waspositive for left head thrust, slight spontaneous right beat tendency under VNG,intermittently undershoots with saccades, and was positive for left PC BPPV.Repositioned with left Coral which pt tolerated well. Retest much improved butstill with minor sx's and nystagmus and repeated RN BURN and issued for home if sx'spersist. She [...] discussed and agreed upon by patient/family.SUBJECTIVE: Bo Jacob is a 62 year old female seen [...] providedEducation Provided To: PatientEducation Mode/Type: Explanation/Discussion;Perf ormanceTREATMENT:Evaluation EvaluationSelf-Intermediate Management:1: eval findings, POC, HEP and parameters, Home RN BURN-writtent hand outs if sx'spersistSkilled Intervention: Skilled judgment [...] in postrepositioning procedures including upright 3-4 hours.Billing:Nevaeh: Evaluation - Moderate Complexity (36430)Self Care / Home Management (73748): 1:1 time: 8 minutes (1 unit: 8-22 mins)Canalith Repositioning (54073) 1 unit (untimed)Total time: 45 minutesRossy Wilson PT -Letter TextRehabilitation and Sports [address] [place], [place] [address]Zfktsznxkby Line: fax Line: fax Cover LetterDate: 04/25/2018 Time: 12:55 PMTo: Callie [...] immediately and then destroythese copies.[facility] [address] [place] [address]Lsqyzqtaarc Line: Fax Line: Date: 04/25/2018 PLAN OF CARE CERTIFICATIONTo: Callie Damon MDFrom: Therapist: GOYO LuoE: Patient Certification/Recertificati on Patient name: Bo Jacob [facility] review of the attached rehabilitation plan of care and ORIGINALsignature are required in order to comply with Payor: [facility] MEDICA[facility] /Plan: [facility] MEDICA[facility] / Product Type: Medicaid / regulations.The identified Physical Therapy PLAN OF CARE for Bo Jacob is asfollows:Dizziness (primary encounter diagnosis)PLAN OF CARE:Assessment: Bo Jacob presents with the chief complaint of dizziness.She presents with impairments of decreased positional tolerance. She waspositive for left head thrust, slight spontaneous right beat tendency underVNG, intermittently undershoots with saccades, and was positive for left PCBPPV. Repositioned with left Coral which pt tolerated well. Retest muchimproved but still with minor sx's and nystagmus and repeated RN BURN and issuedfor home if sx's persist. She may benefit from skilled therapy services toresolve dizziness.Prognosis: ExcellentExcellent due to: current objective clinical presentation;good overall healthstatus;good support system/ coping skillsGoals for Episode of Care: created on 04/24/18 through 06/24/18Patient will decrease DHI score to less than 5/100 (evaluation: 26100).Patient will have negative positional testing for BPPV.Patient [...] have reviewed the treatment plan for Bo Jacob, CCF# [id number] for theperiod of 04/25/2018 -- 06/23/18, established on 04/25/2018.Provider signature: ____ Date: Please return only this signature form to:ATTN:[facility] [address] [place] [address]Mxdd: [phone]: [phone] [facility] PROGRESSon 04-24-2018 Protein mass conc HNO ID: [id number] thor: Rossy (Pt) ReuschService: (none)Author Type: Physical TherapistType: Progress NotesFiled: 04/25/2018 12:57 PMNote Text:Episode Visit Count: 1Therapist That Will Oversee The Plan Of Care: rossy velázquezuschStart of Care Date: 04/24/18Onset Date: 03/25/18Plan of Care Certification Date: 04/24/18Patient Identified by Name and Date of : YesREHABILITATION AND SPORTS THERAPYPHYSICAL THERAPY EVALUATIONPLAN OF CARE:Assessment: Bo Jacob presents with the chief complaint ofdizziness. She presents with impairments of decreased positionaltolerance. She was positive for left head thrust, slight spontaneous rightbeat tendency under VNG, intermittently undershoots with saccades, and waspositive for left PC BPPV. Repositioned with left Coral which pt toleratedwell. Retest much improved but still with minor sx's and nystagmus andrepeated RN BURN and issued for home if sx's persist. She may benefit fromskilled therapy services to resolve dizziness.Prognosis: ExcellentExcellent due to: current objective clinical presentation;good overallhealth status;good support system/ coping skillsGoals for Episode of Care: created on 04/24/18 through 06/24/18Patient will decrease DHI score to less than 5/100 (evaluation: 26100).Patient will have negative positional testing for BPPV.Patient [...] discussed and agreed upon bypatient/family.SUBJECTIVE : Bo Jacob is a 62 year old female seen [...] educationprovidedEducation Provided To: PatientEducation Mode/Type: Explanation/Discussion;Perf ormanceTREATMENT:Evaluation EvaluationSelf-Intermediate Management:1: eval findings, POC, HEP and parameters, Home RN BURN-writtent hand outs ifsx's persistSkilled Intervention: Skilled judgment [...] patient in post repositioning procedures including upright 3-4hours.Billing:Edna: Evaluation - Moderate Complexity (78325)Self Care / Home Management (01953): 1:1 time: 8 minutes (1 unit: 8-22mins)Canalith Repositioning (57594) 1 unit (untimed)Total time: 45 minutesAllmyra Wilson, PT Normal [facility] Basic Metabolic Panlon 03-21 Anion gap 3 molar conc 13 mmol/L Normal 9-18 [facility] Comment on above: Performed By: #### C BC, BMP, MG1 ####[facility] [address] [place] [phone] Calcium mass conc 8.6 mg/dL Normal 8.5-10.2 [facility] Comment on above: Performed By: #### C BC, BMP, MG1 ####[facility] [address] [place] [phone] Chloride molar conc 106 mmol/L High 97-105 [facility] Comment on above: Performed By: #### C BC, BMP, MG1 ####[facility] [address] [place] [phone] CO2 molar conc 24 mmol/L Normal 22-30 [facility] Comment on above: Performed By: #### C ROSAURA CHOPRA, MG1 ####[facility] [address] [place] [address] Creatinine mass conc 0.86 mg/dL Normal 0.58-0.96 [facility] Comment on above: Performed By: #### C KEYSHA, BMP, MG1 ####[facility] [address] [place] [address] eGFR- Amer. >60 Normal [facility] Comment on above: Performed By: #### C KEYSHA, BMP, MG1 ####[facility] [address] [place] [address] GFR/1.73 sq M predicted among non-blacks MDRD vol rate/area (S/P/Bld) mL/min/{1.73_m2} Normal [facility] Comment on above: Result Comment: eGFR (Estimated [...] actual GFR. Performed By: #### C ROSAURA CHOPRA, MG1 ####[facility] [address] [place] [address] Glucose mass conc 94 mg/dL Normal 74-99 [facility] Comment on above: Result Comment: The [place] Diabetes Association (ADA) provides guidance for cutoff [...] Standards of Medical Care in Diabetes 2016, [place] [employer]. Diabetes Care. 2016.39(Suppl 1). Performed By: #### C ROSAURA CHOPRA MG1 ####[facility] [address] [place] [address] Potassium molar conc 3.9 mmol/L Normal 3.7-5.1 [facility] Comment on above: Performed By: #### C ROSAURA CHOPRA, MG1 ####[facility] [address] [place] [address] Sodium molar conc 143 mmol/L Normal 136-144 [facility] Comment on above: Performed By: #### C ROSAURA CHOPRA, MG1 ####[facility] [address] [place] [address] Urea nitrogen mass conc 15 mg/dL Normal 7-21 [facility] Comment on above: Performed By: #### ROSAURA OLMEDO MG1 ####[facility] [address] [place] [address] CASE MANAGEMon 03-21-2018 CASE MANAGEM HNO ID: [id number] thor: Elisa Varela (Sw)Serkwabenae: Care ManagementAuthor Type: Social WorkerType: Care Mgt Progress NoteFiled: 03/21/2018 10:15 AMNote Text:CARE MANAGEMENT PROGRESS NOTESERVICE DATE: 03/21/2018SERVICE TIME: 10:10 AM LOS: 0 daysPt remains with no skilled needs. PCP tasked. Family to transport. tofollow and support.SIGNATURE: SHAWN Workman PATIENT NAME: Bo JacobDATE: March 21, 2018 : 10:10 AM PAGER/CONTACT #: [phone] Normal [facility] CBCon 03-21-2018 Erythrocyte distribution width Auto Ratio (RBC) 13.5 % Normal 11.5-15.0 [facility] Comment on above: Performed By: #### C ROSAURA CHOPRA, MG1 ####[facility] [address] [place] [address] Hematocrit Auto Volume Fraction (Bld) 45.1 % Normal 36.0-46.0 [facility] Comment on above: Performed By: #### C ROSAURA CHOPRA, MG1 ####[facility] [address] [place] [address] Hemoglobin mass conc (Bld) 14.8 g/dL Normal 11.5-15.5 [facility] Comment on above: Performed By: #### C ROSAURA CHOPRA, MG1 ####[facility] [address] [place] [address] MCH Auto Entitic mass (RBC) 30.3 pG Normal 26.0-34.0 [facility] Comment on above: Performed By: #### C ROSAURA CHOPRA, MG1 ####[facility] [address] [place] [address] MCHC Auto mass conc (RBC) 32.8 g/dL Normal 30.5-36.0 [facility] Comment on above: Performed By: #### ROSAURA OLMEDO, MG1 ####[facility] [address] [place] [address] MCV Auto Entitic volume (RBC) 92.4 fL Normal 80.0-100.0 [facility] Comment on above: Performed By: #### C ROSAURA CHOPRA, MG1 ####[facility] [address] [place] [address] Platelet mean volume Auto Entitic volume (Bld) 9.9 fL Normal 9.0-12.7 [facility] Comment on above: Performed By: #### ROSAURA OLMEDO, MG1 ####[facility] [address] [place] [address] Platelets Auto #/vol (Bld) 238 10*3/uL Normal 150-400 [facility] Comment on above: Performed By: #### C ROSAURA CHOPRA, MG1 ####[facility] [address] [place] [address] RBC Auto #/vol (Bld) 4.88 10*6/uL Normal 3.90-5.20 [facility] Comment on above: Performed By: #### ROSAURA OLMEDO, MG1 ####[facility] [address] [place] [address] WBC Auto #/vol (Bld) 6.68 10*3/uL Normal 3.70-11.00 [facility] Comment on above: Performed By: #### C KEYSHA BMP, MG1 ####[facility] [address] [place] [phone] CNCOon 03-21-2018 CNCO Letter Lesa 2017Bo Jacob[address] [facility] [address]Uoem Ms. Jacob,The nurses and staff of [facility] hope this letter finds you feelingwell and [...] free to contact me, Jenna Plaza RN ([phone]) or email me at,[email or web address] lly, you will receive a survey in the mail asking you to rate thecare you received while in the hospital. Please take the time to complete andsend back the survey, as it is essential to our continued success. Ipersonally review all the results and would appreciate your feedback.Thank you in advance for your participation and thank you for [facility].Sincerely,Nurse [employer] Lead: Jenna Plaza RN ([phone])[facility] Unit: [address] [place] [address] 03-21-2018 CN HNO ID: [id number] thor: Callie Jarvise: [facility] MedicineAuthor Type: PhysicianType: Discharge SummariesFiled: 03/21/2018 12:56 PMNote Text:DISCHARGE SUMMARYPATIENT NAME: Bo Jacob ADMISSION DATE: 03/19/2018MRN: [id number] DISCHARGE DATE: 03/21/2018ATTENDING PHYSICIAN: Callie Byers FOR HOSPITALIZATION: dizzinessDIAGNOSIS: Active Problems: Dizziness Hypertensive urgency Hematuria, undiagnosed causeResolved Problems: * No resolved hospital problems. *OPERATIONS DURING HOSPITALIZATION: NonePROCEDURES DURING HOSPITALIZATION: No procedures performedHOSPITAL COURSE:Active Problems: Dizziness Overview: -ct head and MRI brain were negative. -pt complaining of episodic vertigo. -Clinton halpike maneuver performed at bedside was positive. [...] pending results.CONSULTING TEAMS DURING HOSPITALIZATION: Neurology: Dr BarrPATIENT CONDITION AT DISCHARGE: StableDISCHARGE DISPOSITION: Home/Self CareDischarge [...] ED to Hosp-Admission (Current) from 03/19/2018 in [facility] Medical Follow-Up Appointment Specialty PCP Provider Name Loan Dias NP Address [address], [facility] [address] Additonal Instructions Patient should bring the following [...] patient.SIGNATURE: Callie Damon MD PATIENT NAME: Bo JacobDATE: March 21, 2018 : 12:35 PM PAGER/CONTACT #: [phone] [facility] Magnesiumon 03-21-2018 Magnesium mass conc 2.1 mg/dL Normal 1.7-2.3 [facility] Comment on above: Performed By: #### C BC, BMP, MG1 ####[facility] [address] [place] [phone] NURSING PROGon 03-21-2018 Protein mass conc HNO ID: [id number] thor: Sony (Rn) Kaushik, RNService: (none)Author Type: Registered NurseType: Nursing Progress NoteFiled: 03/21/2018 6:47 AMNote Text: Nursing Progress NotePatient Name: Bo JacobMRN: [id number] Location: [place] [address]/[id number]____ Daily Note:1900: Patient is resting in bed talking with family.2100: Pt is resting in bed with family, sinus on tele.2300: pt observed asleep.0100: Pt observed asleep.0300: Pt observed asleep.0500: Pt observed sleeping, sinus on tele.This note was completed by: Sony Faulkner, RN [facility] THERAPY NTon 03-21-2018 THERAPY NT HNO ID: [id number] thor: Ruby (Pt) NaplesService: Physical TherapyAuthor Type: Physical TherapistType: Therapy (PT/OT/Speech/Resp)Filed: 03/21/2018 10:32 AMNote Text:Physical Therapy EvaluationSERVICE DATE: 03/21/2018SERVICE TIME: 0855 to 0952ROOM: [id number] Discharge Disposition: Outpatient Physical TherapyRecommended Discharge Disposition Comments: vestibular rehab - patientmuch improved however still dizzyRecommended Discharge Equipment: No equipment needs anticipatedPT Recommendations to Nursing: Ambulate without device;To bathroom;Inhalls;Transfer to/from chair;OOB for Meals;With assist of 1 person (lata gaitbelt)PT 6 Clicks Score: 24Precautions/Activity Restrictions: Fall RiskPrecaution/Activity Restriction Comments: standard precautionsASSESSMENT :Patient presents with dizziness, decreased activity tolerance anddecreased balance/safety with elevated fall risk. Patient + Clinton HallpikeL and responds well with Coral maneuver however still slight dizziness andheadache. Patient ind with HEP to address at home however would highlyrecommend OP PT for further more detailed assessment and follow up.Patient CGA initially with mobility however much improved after treatmentwith progression to SBA/S. No additional acute PT indicated at this time.Patient Disposition at Start of Session: Supine in Bed;Call Bella in ReachPatient Disposition at End of Session: Supine in Bed;Call Bella in ReachTolerated Full SessionPhysical Therapy Problem List: [...] INTERVENTIONS:Therapy Diagnosis: Reduced mobility-otherInterventions Provided: Evaluation;Therapeutic Activity (24858);CanalithRepositioni ng (93517)$ Evaluation-Low (70119) Billed Units: 1 unitTherapeutic Activity (10352) Treatment Minutes: 232 unitsSkilled Intervention(s): Instructed patient [...] POC and anticipated OP progression andrationaleCanalith Repositioning (06029)$ Canalith Repositioning (76902) Billed Units: 1 unitSkilled Intervention(s): Professional judgment [...] URE: Ruby Leavitt PT PATIENT NAME: Bo JacobDATE: March 21, 2018 : 10:20 AM [facility] Urinalysison 03-21-2018 Bilirubin, Urine Negative Normal Negative [facility] Comment on above: Performed By: #### U A, UAMIC ####[facility] [address] [place] [address] Clarity Clear Normal Clear [facility] Comment on above: Performed By: #### U A, UAMIC ####[facility] [address] [place] [address] Color Yellow Normal Yellow [facility] Comment on above: Performed By: #### U A, UAMIC ####[facility] [address] [place] [address] Glucose Ql (U) Negative Normal Negative [facility] Comment on above: Performed By: #### U A, UAMIC ####[facility] [address] [place] [address] Hemoglobin/Blood,Ur Trace Critically abnormal Negative [facility] Comment on above: Performed By: #### U A, UAMIC ####[facility] [address] [place] [address] Ketones Ql (U) Negative Normal Negative [facility] Comment on above: Performed By: #### U A, UAMIC ####[facility] [address] [place] [address] Leukest Small Critically abnormal Negative [facility] Comment on above: Performed By: #### U A, UAMIC ####[facility] [address] [place] [address] Nitrites Negative Normal Negative [facility] Comment on above: Performed By: #### U A, UAMIC ####[facility] [address] [place] [address] pH 7.0 Normal 5.0-8.0 [facility] Comment on above: Performed By: #### U A, UAMIC ####[facility] [address] [place] [address] Protein, Urine Negative Normal [facility] Comment on above: Performed By: #### U A, UAMIC ####[facility] [address] [place] [address] Specific [place], Ur <=1.005 Normal 1.001-1.029 [facility] Comment on above: Performed By: #### U A, UAMIC ####[facility] [address] [place] [address] Urobilinogen 0.2 Normal 0.2-1.0 [facility] Comment on above: Performed By: #### U A, UAMIC ####[facility] [address] [place] [address] Urine Microscopic (FOR LAB U SE ONLY)on 03-21-2018 Bacteria Few Critically abnormal 0 [facility] Comment on above: Performed By: #### U A, UAMIC ####[facility] [address] [place] [address] Cast SEE COMMENT Normal 0 [facility] Comment on above: Result Comment: 0 Performed By: #### U A, UAMIC ####[facility] [address] [place] [address] Epithelial Cells SEE COMMENT Normal [facility] Comment on above: Result Comment: 0-5S quamous Epithelial Cells Performed By: #### U A, UAMIC ####[facility] [address] [place] [address] INR Coag RelTime (Bld) 3-5 Criticall y abnormal 0-3 [facility] Comment on above: Performed By: #### U A, UAMIC ####[facility] [address] [place] [address] WBC 5-10 Critically abnormal 0-5 [facility] Comment on above: Performed By: #### U A, UAMIC ####[facility] [address] [place] [address] Basic Metabolic Panlon 03-20 Anion gap 3 molar conc 12 mmol/L Normal 9-18 [facility] Comment on above: Performed By: #### C BC, BMP, MG1 ####[facility] [address] [place] [address] Calcium mass conc 9.0 mg/dL Normal 8.5-10.2 [facility] Comment on above: Performed By: #### C BC, BMP, MG1 ####[facility] [address] [place] [address] Chloride molar conc 106 mmol/L High 97-105 [facility] Comment on above: Performed By: #### C BC, BMP, MG1 ####[facility] [address] [place] [address] CO2 molar conc 26 mmol/L Normal 22-30 [facility] Comment on above: Performed By: #### C ROSAURA CHOPRA, MG1 ####[facility] [address] [place] [address] Creatinine mass conc 0.87 mg/dL Normal 0.58-0.96 [facility] Comment on above: Performed By: #### C ROSAURA CHOPRA, MG1 ####[facility] [address] [place] [address] eGFR- Amer. >60 Normal [facility] Comment on above: Performed By: #### C ROSAURA CHOPRA, MG1 ####[facility] [address] [place] [address] GFR/1.73 sq M predicted among non-blacks MDRD vol rate/area (S/P/Bld) mL/min/{1.73_m2} Normal [facility] Comment on above: Result Comment: eGFR (Estimated [...] actual GFR. Performed By: #### C ROSAURA CHOPRA, MG1 ####[facility] [address] [place] [address] Glucose mass conc 84 mg/dL Normal 74-99 [facility] Comment on above: Result Comment: The [place] Diabetes Association (ADA) provides guidance for cutoff [...] Standards of Medical Care in Diabetes 2016, [place] [employer]. Diabetes Care. 2016.39(Suppl 1). Performed By: #### C ROSAURA CHOPRA MG1 ####[facility] [address] [place] [address] Potassium molar conc 3.9 mmol/L Normal 3.7-5.1 [facility] Comment on above: Performed By: #### C ROSAURA CHOPRA MG1 ####[place] [address] Sodium molar conc 144 mmol/L Normal 136-144 [facility] Comment on above: Performed By: #### C ROSAURA CHOPRA MG1 ####[place] [address] Urea nitrogen mass conc 12 mg/dL Normal 7-21 [facility] Comment on above: Performed By: #### C ROSAURA CHOPRA MG1 ####[place] [address] CBCon 03-20-2018 Erythrocyte distribution width Auto Ratio (RBC) 13.5 % Normal 11.5-15.0 [facility] Comment on above: Performed By: #### C ROSAURA CHOPRA MG1 ####[place] [address] Hematocrit Auto Volume Fraction (Bld) 44.6 % Normal 36.0-46.0 [facility] Comment on above: Performed By: #### C ROSAURA CHOPRA, MG1 ####[place] [address] Hemoglobin mass conc (Bld) 14.8 g/dL Normal 11.5-15.5 [facility] Comment on above: Performed By: #### C ROSAURA CHOPRA, MG1 ####[place] [address] MCH Auto Entitic mass (RBC) 30.9 pG Normal 26.0-34.0 [facility] Comment on above: Performed By: #### C ROSAURA CHOPRA, MG1 ####[place] [address] MCHC Auto mass conc (RBC) 33.2 g/dL Normal 30.5-36.0 [facility] Comment on above: Performed By: #### ROSAURA OLMEDO, MG1 ####[facility] [address] [place] [address] MCV Auto Entitic volume (RBC) 93.1 fL Normal 80.0-100.0 [facility] Comment on above: Performed By: #### ROSAURA OLMEDO, MG1 ####[facility] [address] [place] [address] Platelet mean volume Auto Entitic volume (Bld) 10.1 fL Normal 9.0-12.7 [facility] Comment on above: Performed By: #### ROSAURA OLMEDO, MG1 ####[facility] [address] [place] [address] Platelets Auto #/vol (Bld) 220 10*3/uL Normal 150-400 [facility] Comment on above: Performed By: #### ROSAURA OLMEDO, MG1 ####[facility] [address] [place] [address] RBC Auto #/vol (Bld) 4.79 10*6/uL Normal 3.90-5.20 [facility] [place] [facility] Comment on above: Performed By: #### ROSAURA OLMEDO, MG1 ####[facility] [address] [place] [address] WBC Auto #/vol (Bld) 5.66 10*3/uL Normal 3.70-11.00 [facility] [place] [facility] Comment on above: Performed By: #### ROSAURA OLMEDO, MG1 ####[facility] [address] [place] [address] CONSULTon 03-20-2018 CONSULT HNO ID: [id number] thor: [place]: NeurologyAuthor Type: PhysicianType: ConsultsFiled: 03/20/2018 2:06 PMNote [...] which is high for her. Presented to [facility], treated as vertigo, prescribed Ativert and Valium and sent home whichdid not help her symptoms, made her feel drowsy. Followed up with PCP whoperformed orthostatics that increased going from laying to standing. HadEKG. Send to [place] ED. Strong family history of stroke so [...] 1.00 - 4.00 k/uL 2.12Mono% % 7.7Abs Worth <0.87 k/uL 0.65Eosin% % 3.7Abs Eosin <0.46 [...] NegativeBilirubin, Urine Negative NegativeKetones, Urine Negative NegativeSpecific [place], Ur 1.001 - 1.029 1.010Hemoglobin/Blood,Ur Negative NegativepH, [...] wine: 7 per week Drug use: NoREVIEW MongoS[employer] SYSTEMS (In addition to HPI):GEN: No fever/chills.HEENT: [...] the side of the bed triggered nystagmus. Clinton Hallpikereproduced symptoms but I did not appreciate [...] from vestibular PT. No additionalneurological work-up needed.Rio Barr M.D.[facility] InstituteDepartment of NeurologyCenter for Regional NeurologyPager: [phone] 2017 Normal [facility] Lipid Panel, [place] 018 Cholesterol in HDL mass conc 49 mg/dL Normal >39 [facility] Comment on above: Result Comment: 40-5 9 mg/dL, Acceptable>59 mg/dL, High: Negative risk factor for coronary heart disease<40 mg/dL, Low: Positive risk factor for coronary heart disease Performed By: #### L IPB ####[address] [phone] Cholesterol in LDL mass conc 85 mg/dL Normal <100 [facility] Comment on above: Result Comment: <100 mg/dL, Optimal 100-129 mg/dL, Near optimal/above optimal 130-159 mg/dL, Borderline high 160-189 mg/dL, High>189 mg/dL, Very highSecondary prevention optimal LDL Cholesterol levels are recommended to be < 70 mg/dL Performed By: #### L IPB ####[facility] [place], [place] [phone] Cholesterol mass conc 148 mg/dL Normal <200 [facility] Comment on above: Result Comment: <200 mg/dL, Desirable 200-239 mg/dL, Borderline high>239 mg/dL, High Performed By: #### L IPB ####[facility] [address] [place], [place] [phone] Fasting Time Unknown Normal [facility] Comment on above: Performed By: #### L IPB ####[address] [phone] LDL:HDL Ratio 1.73 Normal <2.54 [facility] Comment on above: Result Comment: Refe rence:1. National Cholesterol Education Program ATP III Guideline At-A-Glance Quick Desk Reference: National Heart, Lung, and Blood [place]. National Institutes of Health. 2001: NIH Publication No. 01-3305.2. An International Atherosclerosis Society position paper: global recommendations for the management of dyslipidemia: executive summary, Atherosclerosis. 2014: 232(2):410-413. Performed By: #### L IPB ####[address] [phone] Non HDL Cholesterol 99 mg/dL Normal <130 [facility] Comment on above: Result Comment: <130 mg/dL, Optimal 130-159 mg/dL, Near optimal/above optimal 160-189 mg/dL, Borderline high 190-219 mg/dL, High>219 mg/dL, Very highSecondary prevention optimal non HDL Cholesterol levels are recommended to be < 100 mg/dL Performed By: #### L IPB ####[address] [phone] TC:HDL Ratio 3.02 Normal <5.10 [facility] Comment on above: Performed By: #### L IPB ####[address] [phone] Triglyceride mass conc 72 mg/dL Normal <150 [facility] Comment on above: Result Comment: <150 mg/dL, Normal 150-199 mg/dL, Borderline high 200-499 mg/dL, High>499 mg/dL, Very high Performed By: #### L IPB ####[address] [phone] VLDL Cholesterol 14 mg/dL Normal <30 [facility] Comment on above: Performed By: #### L IPB ####[address] [phone] MRI BRAIN WO IVCONon 018 MRI BRAIN WO IVCON * * *Final Report* * *DATE OF EXAM: Mar 20 2018 11:31AM [facility] 0294 - MRI BRAIN WO IVCON [...] 20 2018 11:45ADictated by : ELOY JAMIL MDThis examination was interpreted and the report reviewed and electronically signed by: ELOY JAMIL MD on Mar 20 2018 11:53AM [id number] Normal [facility] Magnesiumon 03-20-2018 Magnesium mass conc 2.2 mg/dL Normal 1.7-2.3 [facility] Comment on above: Performed By: #### C BC, BMP, MG1 ####[facility] [address] [place] [phone] NURSING PROGon 03-20-2018 Protein mass conc HNO ID: [id number] thor: Elza (Rn) THERESA Romeroervice: (none)Author Type: Registered NurseType: Nursing Progress NoteFiled: 03/20/2018 10:30 AMNote Text: Nursing Progress NotePatient Name: Bo JacobMRN: [id number] Location: [facility]19/[id number]____ Daily Note:0735 RN assumed care of patient, patient resting in bed, assessmentcomplete, see NPR. Heart sounds regular, bowel sounds present, lung soundsclear, HR 83 SR on tele. IV patent, c/o dizziness, and a headache, lightsdimmed and repositioned.0856 Patient c/o headache and dizziness, medications given per OCT. HR 79SR on tele.1025 Report called to [address] [place] RN. Patient transferred in stable condition.This note was completed by: Elza Romero RN [facility] Protein mass conc HNO ID: [id number] thor: Ruth (Rn) Alise, RNService: (none)Author Type: Registered NurseType: Nursing Progress NoteFiled: 03/20/2018 5:10 AMNote Text: Nursing Progress NotePatient Name: Bo JacobMRN: [id number] Location: [place] [address]____ Daily Note:2000 Pt arrive on unit. Family present with pt. No sign of acute distress.2130 Pt sitting up in bed. SR on tele. No sign of distress. Family hasmultiple family members [id number] Pt laying in bed. No sign of distress. Pt asking when VS will betaken. Explained hospital policies on observation pt's, VS, and plan ofcare. Pt verbalizes understanding.0100 Pt laying in bed on back, sleeping. No sign of acute distress. SR [id number] Pt laying in bed, sleeping. No sign of acute distress. SR on [id number] Pt laying in bed, sleeping. SR on teleThis note was completed by: Ruth Carrero RN [facility] PROGRESSon 03-20-2018 Protein mass conc HNO ID: [id number] thor: Callie Jarvise: Hospital MedicineAuthor Type: PhysicianType: Progress NotesFiled: 03/20/2018 2:23 PMNote Text:HOSPITAL MEDICINEPROGRESS NOTEName: Bo JacobMRN: [id number] DATE: 03/20/2018SERVICE TIME: 2:20 PMLOCATION / ROOM: [place] [address]/[address] Medicine/Primary Attending: Callie Damon MDNIGHT COVERAGE BETWEEN 5.30P-7.30APage [id number] AND PLANActive Hospital Problems Diagnosis- Dizziness -ct head and MRI brain were negative.-pt complaining of episodic vertigo.-Clinton halpike maneuver performed at bedside was positive.-Will get physical therapy to see the patient for teaching the [facility] state hospitalmaneuver and further evaluation.-appreciate neurology .-meclizine not working [...] tab(s) (NORVASC) 5 mg ORAL DAILY Callie Damon 5 mg at03/20/18 1257meclizine 25 mg tab(s) (ANTIVERT) 25 mg ORAL TID PRN Rio Barraspirin 81 mg chewable tab(s) 81 mg ORAL DAILY Breanna ([facility]) Pena 81 mgat 03/20/18 57490.9% NaCl 3-5 mL 3-5 mL INTRAVENOUS q 12 H Breanna ([facility]) Pena 3 mL at03/20/18 0930ondansetron orally disintegrating 4 mg tab(s) (ZOFRAN ODT) 4 mg ORAL q 6 HPRN Breanna ([facility]) ReevesOrondansetron (PF) 4 mg injection (ZOFRAN) 4 mg INTRAVENOUS q 6 H PRNDestinee ([employer]) Reevesacetaminophen 650 mg tab(s) (TYLENOL) 650 mg ORAL q 6 H PRN Breanna ([facility])Pena 650 mg at 03/20/18 0932OBJECTIVEPHYSICAL EXAM: BP [...] evaluation.Plan of care discussed with: PatientSIGNATURE: Callie Damon MDDATE: March 20, 2018TIME: 2:20 PM Normal [facility] Urinalysison 03-20-2018 Bilirubin, Urine Negative Normal Negative [facility] Comment on above: Performed By: #### U A UAVIVIANA ####[facility] [address] [place], [place] [phone] Clarity Clear Normal Clear [facility] Comment on above: Performed By: #### U A, UAMIC ####[facility] [address] [place] [address] Color Straw Critically abnormal Yellow [facility] Comment on above: Performed By: #### U A, UAMIC ####[facility] Frdvrcplbe8928 [place] [address] Glucose Ql (U) Negative Normal Negative [facility] Comment on above: Performed By: #### U A, UAMIC ####[facility] [address] [place] [address] Hemoglobin/Blood,Ur Negative Normal Negative [facility] Comment on above: Performed By: #### U A, UAMIC ####[facility] [address] [place] [address] Ketones Ql (U) Negative Normal Negative [facility] Comment on above: Performed By: #### U A, UAMIC ####[facility] Ajpro[address] [place] [address] Leukest Trace Critically abnormal Negative [facility] Comment on above: Performed By: #### U A, UAMIC ####[facility] [address] [place] [address] Nitrites Negative Normal Negative [facility] Comment on above: Performed By: #### U A, UAMIC ####[facility] [address] [place] [address] pH 7.0 Normal 5.0-8.0 [facility] Comment on above: Performed By: #### U A, UAMIC ####[facility] [address] [place] [address] Protein, Urine Negative Normal [facility] Comment on above: Performed By: #### U A, UAMIC ####[facility] [address] [place] [address] Specific [place], Ur 1.010 Normal 1.001-1.029 [facility] Comment on above: Performed By: #### U A, UAMIC ####[facility] [address] [place] [address] Urobilinogen 0.2 Normal 0.2-1.0 [facility] Comment on above: Performed By: #### U A, UAMIC ####[facility] Uooeeprcdl2519 [address] Urine Microscopic (FOR LAB U SE ONLY)on 03-20-2018 Cast SEE COMMENT Normal 0 [facility] Comment on above: Result Comment: 0 Performed By: #### U A, UAMIC ####[facility] Gcldrtfnlb8438 [address] Epithelial Cells SEE COMMENT Normal [facility] Comment on above: Result Comment: 0-5S quamous Epithelial Cells Performed By: #### U A, UAMIC ####[facility] Kstjsoxlqn0893 [address] INR Coag RelTime (Bld) 0-3 Normal 0-3 [facility] [place] [facility] Comment on above: Performed By: #### U A, UAMIC ####[facility] [address] [place] [address] WBC 0-5 Normal 0-5 [facility] Comment on above: Performed By: #### U A, UAMIC ####[facility] Jjrvxxgwhi5426 [address] CASE MGT INIT ASSESon 2017 CASE MGT INIT ASSBETTY HNO ID: [id number] thor: Barbara (Rn) THERESA Arroyoervice: (none)Author Type: Registered NurseType: Care Mgt Initial AssessmentFiled: 03/19/2018 7:03 PMNote Text:CARE MANAGEMENT: ASSESSMENT AND DISCHARGE PLANSERVICE DATE: 03/19/2018SERVICE TIME: 6:56 PMRN Grounds And Nursery Specialist met with patient at bedside in the emergency department.Introduction made and role of case management explained.Patient states she is agreeable to assessment questions.Assessment information provided by electronic medical record and patient.PRIMARY CARE PHYSICIAN: Loan Dias NP confirmedPhone: Uaszcjk states she does not have any appointment scheduling preferencesADMISSION STATUS: EmergencyNeeds Prior to Discharge: To Be DeterminedMEDICAL:Patient/R epresentative Stated Goals:To have reduction in symptomsTo improve my functional statusTo return home to life as it wasHealth Insurance: [employer] MEDICAID and NoneHealth Issues Impacting Discharge Plan: Dizziness - HTNLast Admission Date: noneIs this Within the Past 30 days? NoAdvance Directive:Current Advance Directive: Health Care Power of Vice President Financial;Vitor Gomes Chart: NoHCPOA: Spouse Derrek Jacob [phone] Literacy:1. How often do you need to [...] Admission: NoneHas the Patient Been in a Intermediate Facility in the Past 30 days? NoSOCIAL:Living Arrangement: HomeLives With: SpouseFinancial Resources: N/APrimary Contact:Derrek JacobPhone: [place]pee: SpouseTravis HensleyPhone: Mexonitp: DaughterSupportive: YesOther Important Patient Contacts: NoneCaregiver Assessment:Caregiver [...] topatient states she does not take any medical terminologist prescription medication.Are you interested in bedside delivery of your medications? NoPharmacy Preference: [facility] Concerns:In the Last Month, Have You [...] planningneeds.Primary Care Physician: Loan Dias NP - [facility] Summary of Care to edie at discharge.SIGNATURE: Barbara Arroyo RN PATIENT NAME: Bo JacobDATE: March 19, 2018 : 6:56 PM PAGER/CONTACT #: [phone] Normal [facility] CBC and Differentialon 03-19 Abs Baso 0.09 k/uL Normal <0.11 [facility] Comment on above: Performed By: #### C BCDIF, CMP, MG1 ####[facility] [address] [place] [address] Abs Worth 0.65 k/uL Normal <0.87 [facility] Comment on above: Performed By: #### C BCDIF, CMP, MG1 ####[facility] [address] [place] [address] Abs Neut 5.24 k/uL Normal 1.45-7.50 [facility] Comment on above: Performed By: #### C BCDIF, CMP, MG1 ####[facility] Cpttifjnth4276 [address] Basophils/100 WBC Auto (Bld) 1.1 % Normal [facility] Comment on above: Performed By: #### C BCDIF, CMP, MG1 ####[facility] [address] [place] [address] Eosinophils Auto #/vol (Bld) 0.31 10*3/uL Normal <0.46 [facility] Comment on above: Performed By: #### C BCDIF, CMP, MG1 ####[facility] [address] [place] [address] Eosinophils/100 WBC Auto (Bld) 3.7 % Normal [facility] Comment on above: Performed By: #### C BCDIF, CMP, MG1 ####[facility] [address] [place] [address] Erythrocyte distribution width Auto Ratio (RBC) 13.5 % Normal 11.5-15.0 [facility] Comment on above: Performed By: #### C BCDIF, CMP, MG1 ####[facility] [address] [place] [address] Hematocrit Auto Volume Fraction (Bld) 46.4 % High 36.0-46.0 [facility] Comment on above: Performed By: #### C BCKHADAR CMP, MG1 ####[facility] [address] [place] [address] Hemoglobin mass conc (Bld) 15.4 g/dL Normal 11.5-15.5 [facility] Comment on above: Performed By: #### C BCKHADAR CMP, MG1 ####[facility] [address] [place] [address] Lymphocytes Auto #/vol (Bld) 2.12 10*3/uL Normal 1.00-4.00 [facility] Comment on above: Performed By: #### C BCKHADAR CMP, MG1 ####[place] [address] Lymphocytes/100 WBC Auto (Bld) 25.2 % Normal [facility] Comment on above: Performed By: #### C BCDIF CMP, MG1 ####[facility] [address] [place] [address] MCH Auto Entitic mass (RBC) 30.6 pG Normal 26.0-34.0 [facility] Comment on above: Performed By: #### C BCJIMMYF CMP, MG1 ####[place] [address] MCHC Auto mass conc (RBC) 33.2 g/dL Normal 30.5-36.0 [facility] Comment on above: Performed By: #### C BCDIF CMP, MG1 ####[facility] [address] [place] [address] MCV Auto Entitic volume (RBC) 92.2 fL Normal 80.0-100.0 [facility] Comment on above: Performed By: #### C BCDIF, CMP, MG1 ####[facility] [address] [place], [place] [id number] Monocytes/100 WBC Auto (Bld) 7.7 % Normal [facility] Comment on above: Performed By: #### C BCDIF CMP, MG1 ####[facility] [address] [place] [address] Neutrophils/100 WBC Auto (Bld) 62.3 % Normal [facility] Comment on above: Performed By: #### C BCDIF, CMP, MG1 ####[facility] [address] [place] [address] Platelet mean volume Auto Entitic volume (Bld) 10.0 fL Normal 9.0-12.7 [facility] Comment on above: Performed By: #### C BCDIF, CMP, MG1 ####[facility] [address] [place] [address] Platelets Auto #/vol (Bld) 255 10*3/uL Normal 150-400 [facility] Comment on above: Performed By: #### C BCDIF, CMP, MG1 ####[place] [address] RBC Auto #/vol (Bld) 5.03 10*6/uL Normal 3.90-5.20 [facility] [place] [facility] Comment on above: Performed By: #### C BCDIF, CMP, MG1 ####[facility] [address] [place] [address] WBC Auto #/vol (Bld) 8.41 10*3/uL Normal 3.70-11.00 [facility] [place] [facility] Comment on above: Performed By: #### C BCDIF, CMP, MG1 ####[facility] [address] [place] [address] CK, Total and CKMBon 018 CK enzyme act/vol 64 U/L Normal 42-196 [facility] Comment on above: Performed By: #### C KCANNIKA ####[facility] [address] [place] [address] CK MB % CK MB % not reported with CK <100 U/L. Normal 0.0-4.0 [facility] Comment on above: Performed By: #### C KCLENNYB ####[place] [address] MB 1.8 ng/mL Normal <4.3 [facility] Comment on above: Performed By: #### C KCLENNYB ####[facility] [address] [place] [address] Comp Metabolic Panelon 03-19 Albumin mass conc 4.6 g/dL Normal 3.9-4.9 [facility] Comment on above: Performed By: #### C BCDIF, CMP, MG1 ####[place] [address] ALP enzyme act/vol 91 U/L Normal 32-117 [facility] Comment on above: Performed By: #### C BCDIF, CMP, MG1 ####[facility] [address] [place] [address] ALT enzyme act/vol 41 U/L High 7-38 [facility] Comment on above: Performed By: #### C BCDIF, CMP, MG1 ####[place] [address] Anion gap 3 molar conc 12 mmol/L Normal 9-18 [facility] Comment on above: Performed By: #### C BCDIF, CMP, MG1 ####[place] [address] AST enzyme act/vol 36 U/L High 13-35 [facility] Comment on above: Performed By: #### C BCDIF, CMP, MG1 ####[place] [address] Bilirubin mass conc 0.4 mg/dL Normal 0.2-1.3 [facility] Comment on above: Performed By: #### C BCDIF, CMP, MG1 ####[place] [address] Calcium mass conc 9.6 mg/dL Normal 8.5-10.2 [facility] Comment on above: Performed By: #### C BCDIF, CMP, MG1 ####[place] [address] Chloride molar conc 104 mmol/L Normal 97-105 [facility] Comment on above: Performed By: #### C BCDIF, CMP, MG1 ####[facility] [address] [place] [address] CO2 molar conc 26 mmol/L Normal 22-30 [facility] Comment on above: Performed By: #### C BCDIF, CMP, MG1 ####[facility] [address] [place] [address] Creatinine mass conc 0.88 mg/dL Normal 0.58-0.96 [facility] Comment on above: Performed By: #### C BCDIF, CMP, MG1 ####[facility] [address] [place] [address] eGFR- Amer. >60 Normal [facility] Comment on above: Performed By: #### C BCDIF, CMP, MG1 ####[facility] [address] [place] [id number] GFR/1.73 sq M predicted among non-blacks MDRD vol rate/area (S/P/Bld) mL/min/{1.73_m2} Normal [facility] Comment on above: Result Comment: eGFR (Estimated [...] reflect actual GFR. Performed By: #### C BCDIF, CMP, MG1 ####[facility] Oxatfmeqkh3999 [address] Glucose mass conc 96 mg/dL Normal 74-99 [facility] Comment on above: Result Comment: The [place] Diabetes Association (ADA) provides guidance for cutoff [...] Standards of Medical Care in Diabetes 2016, [place] Diabetes Association. Diabetes Care. 2016.39(Suppl 1). Performed By: #### C BCDIF, CMP, MG1 ####[facility] [address] [place] [address] Potassium molar conc 3.8 mmol/L Normal 3.7-5.1 [facility] Comment on above: Performed By: #### C BCDIF, CMP, MG1 ####[facility] [address]2452 [place] [address] Protein mass conc 7.3 g/dL Normal 6.3-8.0 [facility] Comment on above: Performed By: #### C BCDIF, CMP, MG1 ####[facility] [address] [place] [address] Sodium molar conc 142 mmol/L Normal 136-144 [facility] Comment on above: Performed By: #### C BCDIF, CMP, MG1 ####[facility] [address] [place] [address] Urea nitrogen mass conc 13 mg/dL Normal 7-21 [facility] Comment on above: Performed By: #### C BCDIF, CMP, MG1 ####[facility] [address] [place] [address] ED NOTEon 03-19-2018 ED NOTE HNO ID: [id number] Author: Annie HendricksonRn) BERNABE Mcmanus Service: (none) Author Type: Registered Nurse Type: ED Notes Filed: 03/19/2018 7:19 PM Note Text: pt updated on plan of care [facility] ED NOTE HNO ID: [id number] Author: Alondra (Rn) Anais, BERNABE Service: (none) Author Type: Registered Nurse Type: ED Notes Filed: 03/19/2018 6:27 PM Note Text: Ambulated to bathroom with assistance, continues to feel dizzy. [facility] ED NOTE HNO ID: [id number] Author: Alondra HendricksonRn) Anais, RN Service: (none) Author Type: Registered Nurse Type: ED Notes Filed: 03/19/2018 5:00 PM Note Text: XR at bedside [facility] ED NOTE HNO ID: [id number] thor: Alondra (Rn) Esme Manzoice: (none)Author Type: Registered NurseType: ED NotesFiled: 03/19/2018 4:59 PMNote Text: Pt to ED c/o dizziness that started past Saturday. Reports that she wasseen by [facility] on Saturday and diagnosed with vertigo, [...] has intermittentdouble vision, none at this time. [facility] ED NOTE HNO ID: [id number] thor: Basim (Rn) Esme Gonzalesice: (none)Author Type: Registered NurseType: ED NotesFiled: 03/19/2018 4:37 PMNote Text:Bed: ED-11Expected date:Expected time:Means of arrival:Comments:Cecil - sent by Loan Dias Dizzy [facility] ED NOTE HNO ID: [id number] Author: Ruby (Rn) BERNABE Walter Service: (none) Author Type: Registered Nurse Type: ED Notes Filed: 03/19/2018 4:36 PM Note Text: Patient presents to the ED from her PCP with positive orthostatics and dizziness. [facility] ED PROV NOTEon 03-19-2018 Protein mass conc HNO ID: [id number] thor: DION Snyder IIIervice: (none)Author Type: PhysicianType: ED Provider NotesFiled: 03/19/2018 10:29 PMNote Text:ED Provider NotePatient Name: Bo JacobMRN: [id number] DATE: 03/19/18HistoryPatient presents with:DizzinessHypertension6 2-year-old female, otherwise healthy, presents with dizziness, andtingling to upper lip. She states she's been dizzy for 4 days. Diagnosedwith vertigo at [facility] 2 days ago with a normal [...] The patient's never had a CVA or [place]. She takesnothing for hypertension hyperlipidemia or diabetes. [...] for dizziness that's been4 days, seen at [facility] with a normal CT and labs however [...] time of disposition: stableSIGNATURE: KIRILL Wolfe-Maria Elena Potter (Pa)03/19/18 1846Attending NoteI have personally performed a face to face assessment of the patient andhave reviewed the PA/SLOT AMBASSADOR note. My posada findings include:62-year-old female presents emergency Department with complaint ofdizziness for the past 4 days. She also complains of some tingling of herupper lip. On examination she is awake alert she has no focal numbness orweakness. On ambulation the patient continues to complain of unsteadinessand dizziness she will be placed in observation for further evaluation andtreatment.Other additions or changes: NoneSignature: Heriberto Ballard, MDDate: 03/19/2018Time: 10:28 PMStepanna Ballard III, 03/19/182228 [facility] EKGon 03-19-2018 Protein mass conc NAME : MADELINE JACOB SEPID : [id number] : 1955 Gender : FemaleRace : CaucasianORD : [id number] Procedure Date : Mar 19 2018 16:56:37Edit Date : Mar 20 2018 12:54:26 Diagnosis:NORMAL SINUS RHYTHMPOSSIBLE LEFT ATRIAL ENLARGEMENTLEFT AXIS DEVIATIONABNORMAL ECGNO PREVIOUS ECGS AVAILABLEConfirmed by MARIAH DINH M.D. ([id number]) on 03/20/2018 12:54:20 PM Ventricular Rate : 69 BPMAtrial Rate : 69 BPMP-R Interval : 148 msQRS Duration : 86 msQ-T Interval : 416 msQTC Calculation(Bezet) : 445 msP [place] : 33 degreesR [place] : -30 degreesT [place] : 12 degrees Test Reason : Dizziness Location : 1 : ER 11 Overread By : MARIAH DINH M.D.Edited By : MARIAH DINH M.D.Referred By : ,Acquired by : , [facility] HISTORY PHYSICALon HISTORY PHYSICAL HNO ID: [id number] thor: Matti Haqueervice: [facility] MedicineAuthor Type: PhysicianType: HANDPFiled: 03/19/2018 11:06 PMNote Text:HOSPITAL MEDICINEHISTORY AND PHYSICAL EXAMPATIENT NAME: Bo JacobMRN: [id number] DATE: 03/19/2018SERVICE TIME: 6:54 PMPrimary Care Physician: Loan Dias, NPNIGHT COVERAGEPage [phone] for any questions between 5.30p-7.30aASSESSMENT AND PLANActive Hospital Problems Diagnosis- Dizziness -dizziness for 4 days with intermittent blurred vision-continue antivert TID, valium made her drowsy-neuro consulted-tele monitoring-check A1C and lipid panel-BP control carefully-MRI in am-CT done 2 days ago at [facility] with no acute intracranial process- Hypertensive urgency SBP >200 in ED, clonidine given with improvement-tele monitoring-vital signs [id number] COMPLAINT: Dizziness and elevated BPHPI: This is a 62 year old female who presents with no PMH who presentswith dizziness and high blood pressure. She states she started to feeldizzy 4 days ago and her daughter (who is a nurse practitioner) took herBP and found it to be elevated so she went to [facility] ED to be evaluated andwas sent home [...] brain was done 2 days ago at [place] [facility] and found to be negative forany [...] and eval. Reviewed orders and HANDP from DRAWING TENDER.Patient presented with symptoms of vertigo x4 days [...] care discussed with: Patient, daughter and sonSIGNATURE: Mattimikala Aden MDDATE: March 19, 2018TIME: 11:01 PM [facility] Hemoglobin A1con 03-19-2018 Glucose mass conc 100 mg/dL [facility] Comment on above: Result Comment: eAG: (Estimated average glucose) is a calculated value from HgbA1c and is franchise sales representative of the average blood glucose level in the last 2-3 month period. Performed By: #### H BA1C ####[facility] [place], [place] [phone] Hemoglobin A1c/Hemoglobin.total mass fraction (Bld) 5.1 % Normal 4.3-5.6 [facility] Comment on above: Performed By: #### H BA1C ####[facility] [place], [place] [phone] High Sens Troponin Ton 03-19 High Sensitivity KACY <6 Normal <12 [facility] Comment on above: Result Comment: When assessing [...] day MACE. Performed By: #### H STNT ####[facility] [address] [place], [place] [id number] High Sensitivity KACY <6 Normal <12 [facility] Comment on above: Result Comment: When assessing [...] day MACE. Performed By: #### H STNT ####[facility] [address] [place] [phone] Magnesiumon 03-19-2018 Magnesium mass conc 2.3 mg/dL Normal 1.7-2.3 [facility] Comment on above: Performed By: #### C BCDIF, CMP, MG1 ####[facility] [address] [place] [address] XR CHEST 1V FRONTAL PORTon 0 03-19-2018 [...] or pleural effusions.Cardiomediastinal silhouette: Within normal limitsOther: .Home Attendant: PSCB Transcribe Date/Time: Mar 19 2018 5:08PDictated by : MARIBEL LINDSEY MDThigloria examination was interpreted and the report reviewed and electronically signed by: MARIBEL LINDSEY MD on Mar 19 2018 5:08PM [id number] [facility] CT HEAD W/O CONTRASTon 03-17 CT HEAD W/O CONTRAST Performed at [facility] APPROVED BY: Caleb Shanks MD [...] unremarkable. IMPRESSION: No acute intracranial abnormality. Normal [facility] Comprehensive Panelon 2017 Albumin mass conc 3.7 g/dL Normal 3.4-5.0 [facility] Comment on above: Performed By: #### L P14 ####[address] [address] ALP enzyme act/vol 99 U/L Normal 46-116 [facility] Comment on above: Performed By: #### L P14 ####[facility] [place], [place] [address] ALT-SGPT Blood 47 U/L Normal 14-63 [facility] Comment on above: Performed By: #### L P14 ####[address] [address] Anion gap 3 molar conc 9 mmol/L Normal 8-20 [facility] Comment on above: Performed By: #### L P14 ####[place] [address] AST-SGOT Blood 24 U/L Normal 15-37 [facility] Comment on above: Performed By: #### L P14 ####[place] [address] Bilirubin Ql (U) 0.6 mg/dL Normal 0.2-1.0 [facility] Comment on above: Performed By: #### L P14 ####[place] [address] Calcium mass conc 8.9 mg/dL Normal 8.5-10.1 [facility] Comment on above: Performed By: #### L P14 ####[place] [address] Chloride molar conc 110 mmol/L High 98-107 [facility] Comment on above: Performed By: #### L P14 ####[place] [address] CO2 molar conc 28 mmol/L Normal 21-32 [facility] Comment on above: Performed By: #### L P14 ####[address] [address] Creatinine mass conc 0.84 mg/dL Normal 0.51-0.95 [facility] Comment on above: Performed By: #### L P14 ####[place] [address] Glucose mass conc 108 mg/dL High 70-99 [facility] Comment on above: Performed By: #### L P14 ####[place] [address] Potassium molar conc 3.8 mmol/L Normal 3.5-5.1 [facility] Comment on above: Performed By: #### L P14 ####[facility] [place], [place] [address] Protein mass conc 6.9 g/dL Normal 6.4-8.2 [facility] Comment on above: Performed By: #### L P14 ####[facility] [place], [place] [address] Sodium molar conc 143 mmol/L Normal 136-145 [facility] Comment on above: Performed By: #### L P14 ####[facility] [place], [place] [address] Urea nitrogen mass conc (Bld) 19 mg/dL Normal 7-25 [facility] Comment on above: Performed By: #### L P14 ####[facility] [place] [address] Urea nitrogen/Creatinine mass ratio 23 mg/mg High 10-20 [facility] Comment on above: Performed By: #### L P14 ####[facility] [place], [place] [address] ED NOTEon 03-17-2018 ED NOTE HNO ID: [id number] Author: Maria Fernanda HendricksonRn) BERNABE Bolanos Service: (none) Author Type: Registered Nurse Type: ED Notes Filed: 03/17/2018 12:34 PM Note Text: Pt moving all extremities, speech clear No s/s of distress Normal [facility] ED NOTE HNO ID: [id number] thor: Maria Fernanda Valdovinos (Rn) THERESA Bolanoservice: (none)Author Type: Registered NurseType: ED NotesFiled: 03/17/2018 12:29 PMNote Text:Dr Fong at bedsidePt resting quietlyStates Now I have a headache Reports 02/25Den improvement of dizzinessSpeech clear, moving all extremities, no s/s of distress Normal [facility] ED NOTE HNO ID: [id number] Author: Maria Fernanda HendricksonRn) BERNABE Bolanos Service: (none) Author Type: Registered Nurse Type: ED Notes Filed: 03/17/2018 11:40 AM Note Text: Patient returned to the Emergency Department. Normal [facility] ED NOTE HNO ID: [id number] Author: Maria Fernanda Valdovinos (Rn) BERNABE Bolanos Service: (none) Author Type: Registered Nurse Type: ED Notes Filed: 03/17/2018 11:40 AM Note Text: Patient transported to radiology with Tech. [facility] ED NOTE HNO ID: [id number] thor: Maria Fernanda Valdovinos (Rn) THERESA Bolanoservice: (none)Author Type: Registered NurseType: ED NotesFiled: 03/17/2018 12:03 PMNote Text: Patient informed: the name of medication, why we are giving it, possibleside effects, what they may expect to feel, and was offered a chance toask questions, prior to the administration of valium and zofran. [facility] ED NOTE HNO ID: [id number] thor: Maria Fernanda Zavala) Esme Bolanosice: (none)Author Type: Registered NurseType: ED NotesFiled: 03/17/2018 10:57 AMNote Text:To ED bed 5 via hospital wheelchair, c/o dizziness since SaturdayNo s/s of distress, moving all extremities. Dr Fong at bedside [facility] ED PROV NOTEon 03-17-2018 Protein mass conc HNO ID: [id number] thor: DION Ramirezervice: Emergency MedicineAuthor Type: PhysicianType: ED Provider NotesFiled: 03/17/2018 12:11 PMNote Text:ED Provider NotePatient Name: Bo JacobMRN: [id number] DATE: 03/17/18HistoryPatient presents with:DizzinessHPIPatient presents with 2 [...] stable condition.SIGNATURE: Archie Mccracken MD03/17/18 1211 Normal [facility] Hemogram/Diffon 03-17-2018 Abs. Baso 0.05 thou/cmm Normal 0.00-0.08 [facility] Comment on above: Performed By: #### L CBCD ####[address] [address] Abs. Worth 0.45 thou/cmm Normal 0.20-1.00 [facility] Comment on above: Performed By: #### L CBCD ####[address] [address] Abs. Neut (ANC) 4.06 thou/cmm Normal 3.00-5.67 [facility] Comment on above: Performed By: #### L CBCD ####[address] [address] Basophils/100 WBC Auto (Bld) 0.8 % Normal [facility] Comment on above: Performed By: #### L CBCD ####[address] [address] Eosinophils Auto #/vol (Bld) 0.24 thou/cmm Normal 0.00-0.41 [facility] Comment on above: Performed By: #### L CBCD ####[address] [address] Eosinophils/100 WBC Auto (Bld) 3.9 % Normal [facility] Comment on above: Performed By: #### L CBCD ####[address] [address] Erythrocyte distribution width Auto Ratio (RBC) 13.1 % Normal 11.5-15.9 [facility] Comment on above: Performed By: #### L CBCD ####[address] [address] Hematocrit Auto Volume Fraction (Bld) 45.2 % Normal 37.0-47.0 [facility] Comment on above: Performed By: #### L CBCD ####[address] [address] Hemoglobin mass conc (Bld) 14.9 g/dL Normal 12.0-16.0 [facility] Comment on above: Performed By: #### L CBCD ####[address] [address] Lymphocytes Auto #/vol (Bld) 1.40 thou/cmm Low 1.50-3.65 [facility] Comment on above: Performed By: #### L CBCD ####[address] [address] Lymphocytes/100 WBC Auto (Bld) 22.6 % Normal [facility] Comment on above: Performed By: #### L CBCD ####[address] [address] MCH Auto Entitic mass (RBC) 30.5 pg Normal 27.0-31.0 [facility] Comment on above: Performed By: #### L CBCD ####[address] [address] MCHC Auto mass conc (RBC) 33.0 % Normal 32.0-36.0 [facility] Comment on above: Performed By: #### L CBCD ####[address] [address] MCV Auto Entitic volume (RBC) 92.4 fL Normal 81.0-99.0 [facility] Comment on above: Performed By: #### L CBCD ####[address] [address] Monocytes/100 WBC Auto (Bld) 7.3 % Normal [facility] Comment on above: Performed By: #### L CBCD ####[facility] [place] [address] Platelet mean volume Auto Entitic volume (Bld) 10.1 fL Normal 7.1-10.5 [facility] Comment on above: Performed By: #### L CBCD ####[place] [address] Platelets Auto #/vol (Bld) 251 thou/cmm Normal 150-400 [facility] Comment on above: Performed By: #### L CBCD ####[place] [address] RBC Auto #/vol (Bld) 4.89 mil/cmm Normal 4.20-5.40 [facility] Comment on above: Performed By: #### L CBCD ####[place] [address] Seg Neutrophil 65.4 % Normal [facility] Comment on above: Performed By: #### L CBCD ####[place] [address] WBC Auto #/vol (Bld) 6.2 thou/cmm Normal 4.8-10.8 [facility] Comment on above: Performed By: #### L CBCD ####[place] [address] MDRD eGFRon 03-17-2018 GFR/1.73 sq M predicted among non-blacks MDRD vol rate/area (S/P/Bld) mL/min/{1.73_m2} Normal >60mL/min/1 .73m2 [facility] Comment on above: Result Comment: If t he patient is , multiply the result by 1.210. Performed By: #### L GFR ####[place] [address] CNCOon 10-24-2017 CNCO HNO ID: [id number] thor: Mammography CoordinatorService: (none)Author Type: PhysicianType: LetterFiled: 10/28/2017 11:32 PMNote Text:October 24, 2017 PID: [id number] [id number] [place], [place] [address]Cjhq Ms. Jacob,Your recent breast imaging examination performed on 10/24/2017 [...] in meeting your health care needs.Sincerely,Dr. Gomez [facility] (# mo Follow[facility]up) [facility] H[facility]: [id number] thor: Mammography CoordinatorService: (none)Author Type: PhysicianType: LetterFiled: 10/28/2017 11:32 PMNote Text:October 24, 2017 PID: [id number] [place], [place] [address]Okvt Ms. Jacob,Your recent breast imaging examination performed on 10/24/2017 [...] in meeting your health care needs.Sincerely,Dr. Gomez [facility] (# mo Follow-up) [facility] DEISY DIAGNOSTIC BILon 018 [facility] DIAGNOSTIC TRACEE * * *Final Report* * *DATE OF EXAM: Oct 24 2017 12:56PM CHRIS 0620 - [facility] DIAGNOSTIC TRACEE / REASON: breast mass n63 right * * * * Physician Interpretation * * * * #[id number] - [facility] DIAGNOSTIC BILBILATERAL DIGITAL DIAGNOSTIC MAMMOGRAM WITH CAD: 10/24/2017HISTORY: Breast Mass N63 Right /Bilateral Diagnostic Mammogram;Call Back/Abnormal Mammogram.RESULT:TECHNIQUE: The study was acquired using full field digital technology and interpreted from soft copy.Current study was also evaluated with a Computer Aided Detection (CAD).Comparison is made to exam dated: 10/11/2017 mammogram - [facility].The tissue of both breasts is predominantly fatty.Prior [...] asymmetry in the right breast is probably benign.#[id number] - [facility] US BREAST LTD RTULTRASOUND OF RIGHT BREAST: 10/24/2017RESULT:Comparison is made to exam dated: 10/11/2017 mammogram - [facility].Ultrasound of the right breast was performed. Malave [...] follow up recommended.Dimitri España/charlene:10/24/2017 13:35:38Imaging Technologist: Shelley CARLOS)(Susanna), [facility] Centerletter sent: # Mo FU OVERALL STUDY BIRADS: 3 Probably benign finding - short term interval follow-up recommendedTranscriptionist : CharleneTranscribe Date/Time: Oct 24 2017 12:38PDictated by : RICKEY STUARThis examination was interpreted and the report reviewed and electronically signed by: DIMITRI GODDARD DO on Oct 24 2017 1:35PM [id number] Normal [facility] US BREAST LTD RTon 10-24 [facility] US BREAST LTD RT * * *Final Report* * *DATE OF EXAM: Oct 24 2017 1:31PM MDU 0594 - [facility] / REASON: ABNORMAL MAMMOGRAM * * * * Physician Interpretation * * * * #[id number] - [facility] DIAGNOSTIC BILBILATERAL DIGITAL DIAGNOSTIC MAMMOGRAM WITH CAD: 10/24/2017HISTORY: Breast Mass N63 Right /Bilateral Diagnostic Mammogram;Call Back/Abnormal Mammogram.RESULT:TECHNIQUE: The study was acquired using full field digital technology and interpreted from soft copy.Current study was also evaluated with a Computer Aided Detection (CAD).Comparison is made to exam dated: 10/11/2017 [facility].The tissue of both breasts is predominantly fatty.Prior [...] asymmetry in the right breast is probably benign.[facility][id number] - [facility]: 10/24/2017RESULT:Comparison is made to exam dated: [facility] the right breast was performed. [...] follow up recommended.Dimitri España/charlene:10/24/2017 13:35:38Imaging Technologist: Shelley CARLOS)(Susanna), [facility] Centerletter sent: # Mo FU OVERALL STUDY BIRADS: 3 Probably benign finding - short term interval follow-up recommendedTranscriptionist : Juan Date/Time: Oct 24 2017 12:38PDictated by : Vini STUART examination was interpreted and the report reviewed and electronically signed by: DIMITRI GODDARD DO on Oct 24 2017 1:35PM [id number] [facility] CNCOon 10-11-2017 CNCO HNO ID: [id number] thor: Mammography CoordinatorService: (none)Author Type: PhysicianType: LetterFiled: 2017 11:33 PMNote Text:October 11, 2017 PID: [id number] [place], [place] [address]Gyau Ms. Jacob,Your recent breast imaging exam on 10/11/2017 showed [...] help in meeting your health care needs.Sincerely,Dr. GoddardInterpreting [facility] (Additional imaging) Normal [facility] SCREENINGon 10-11-2017 [facility] SCREENING * * *Final Report* * *DATE OF EXAM: Oct 11 2017 10:29AM CHRIS 0581 - [facility] SCREENING / REASON: Z12.39 SCREENING * * * * Physician Interpretation * * * * #[id number] - [facility] SCREENINGBILATERAL DIGITAL SCREENING MAMMOGRAM WITH CAD: 10/11/2017HISTORY: [...] ultrasound are recommended.Dimitri España/charlene:10/11/2017 12:57:42Imaging Technologist: Lisa HERNANDEZ (R)), [facility] Centerletter sent: Additional Imaging NeededMammogram BI-RADS: 0 Incomplete: needs additional imaging evaluationTranscriptionist: CharleneTranscribjasper Date/Time: Oct 11 2017 10:18ADictated by : Vini STUART examination was interpreted and the report reviewed and electronically signed by: DIMITRI GODDARD DO on Oct 11 2017 12:57PM [id number] Normal [facility] CHEST 2 VIEWSon 05-18-2017 Protein mass conc Performed at [facility] APPROVED BY: Tree Hernandez MD EXAMINATION: CHEST RADIOGRAPH (2 VIEW FRONTAL & LATERAL) Clinical History: Chest painM: XC2_3Comparison: 08/17/2015 RESULT: Lines, tubes, and devices: None. Lungs and pleura: Mild hyperinflation. No pneumonia, congestion or pleural effusion. Cardiomediastinal silhouette: Normal cardiomediastinal silhouette. Other: No acute bony abnormality. IMPRESSION: No acute radiographic abnormality. Normal [facility] ED NOTEon 05-18-2017 ED NOTE HNO ID: [id number] thor: Valeria (Rn) THERESA Munozervice: Emergency MedicineAuthor Type: Registered NurseType: ED NotesFiled: 05/18/2017 10:41 AMNote Text:Pt was leaning over a fence and felt a pop. Pt now having l rib pain thatis getting worse Normal [facility] ED PROV NOTEon 05-18-2017 Protein mass conc HNO ID: [id number] thor: Emy Salgado, DIONervice: Emergency MedicineAuthor Type: PhysicianType: ED Provider NotesFiled: 05/18/2017 11:53 AMNote Text:ED Provider NotePatient Name: Bo JacobMRN: [id number] DATE: 05/18/17HistoryPatient presents with:Rib InjuryPatient is a 61 year old female presenting with chest pain.History provided by: PatientChessonali PainPain location: L chestPain quality: dull and [...] rib fxWill fu pcp, ED inc sx Yermo painNo diagnosis found.PlanThe Patient was DISCHARGED: Counseled patient regarding suspecteddiagnosis AND need for follow-up. Discharged home with verbal and writteninstructions. They were instructed to return as needed for persistent orworsening symptoms or any new concerns.Condition at time of disposition: stableSIGNATURE: Tyrell Franco MD05/18/17 1153 Normal [facility] Vital Signs Date Time Vital Sign Value Performing Clinician Facility 04-13-2025 15:12-0400 Body height 154.94 cm Loan Dias DRAWING TENDER-C Work Phone: [facility] 04-13-2025 15:12-0400 Body mass index (BMI) [Ratio] 34.5 kg/m2 Loan Dias DRAWING TENDER-C Work Phone: [facility] 04-13-2025 15:12-0400 Body temperature 97.5 [degF] Loan Dias DRAWING TENDER-C Work Phone: [facility] 04-13-2025 15:12-0400 Body weight 83 kg Loan Dias DRAWING TENDER-C Work Phone: [facility] 04-13-2025 15:12-0400 Diastolic blood pressure 60 mm[Hg] Loan Dias DRAWING TENDER-C Work Phone: [facility] 04-13-2025 15:12-0400 Heart rate 106 /min Loan Dias DRAWING TENDER-C Work Phone: [facility] 04-13-2025 15:12-0400 Respiratory rate 18 /min Loan Dias DRAWING TENDER-C Work Phone: [facility] 04-13-2025 15:12-0400 SaO2% (BldA) [Mass fraction] 98 % Loan Dias DRAWING TENDER-C Work Phone: [facility] 04-13-2025 15:12-0400 Systolic blood pressure 120 mm[Hg] Loanaruna Dias DRAWING TENDER-C Work Phone: [facility] 04-08-2025 09:29-0400 Body height 154.94 cm Loan Dias DRAWING TENDER-C Work Phone: [facility] 04-08-2025 09:29-0400 Body mass index (BMI) [Ratio] 34.5 kg/m2 Loanaruna Dias DRAWING TENDER-C Work Phone: [facility] 04-08-2025 09:29-0400 Body weight 83 kg Loan Dias DRAWING TENDER-C Work Phone: [facility] 04-08-2025 09:29-0400 Diastolic blood pressure 83 mm[Hg] Loan Dias DRAWING TENDER-C Work Phone: [facility] 04-08-2025 09:29-0400 Heart rate 85 /min Loanaruna Dias DRAWING TENDER-C Work Phone: [facility] 04-08-2025 09:29-0400 SaO2% (BldA) [Mass fraction] 98 % Loan Dias DRAWING TENDER-C Work Phone: [facility] 04-08-2025 09:29-0400 Systolic blood pressure 129 mm[Hg] Loan Dias DRAWING TENDER-C Work Phone: [facility] 04-04-2025 03:57-0400 Body temperature 98 [degF] Loan Dias DRAWING TENDER-C Work Phone: [facility] 04-04-2025 03:57-0400 Diastolic blood pressure 90 mm[Hg] Loan Dias DRAWING TENDER-C Work Phone: [facility] 04-04-2025 03:57-0400 Heart rate 70 /min Loan Dias DRAWING TENDER-C Work Phone: [phone])330-2025[address] [place] [address] 04-04-2025 03:57-0400 Respiratory rate 12 /min Loanaruna Dias DRAWING TENDER-C Work Phone: [facility] 04-04-2025 03:57-0400 SaO2% (BldA) [Mass fraction] 96 % Loan Dias DRAWING TENDER-C Work Phone: [facility] 04-04-2025 03:57-0400 Systolic blood pressure 129 mm[Hg] Loanaruna Dias DRAWING TENDER-C Work Phone: [phone] [place] [address] 04-04-2025 01:05-0400 Body height 154.94 cm Loanaruna Dias DRAWING TENDER-C Work Phone: [phone])481-8394[address] [place] [address] 04-04-2025 01:05-0400 Body mass index (BMI) [Ratio] 36.1 kg/m2 Loanaruna Dias DRAWING TENDER-C Work Phone: 4([phone])[phone] [place] [address] 04-04-2025 01:05-0400 Body weight 86.8 kg Loanaruna Dias DRAWING TENDER-C Work Phone: [phone] [place] [address] 03-12-2025 11:14-0400 Body height 154.94 cm Loanaruna Dias DRAWING TENDER-C Work Phone: 5([phone] [place] [address] 03-12-2025 11:14-0400 Body mass index (BMI) [Ratio] 35.1 kg/m2 Loanaruna Dias DRAWING TENDER-C Work Phone: [facility] 03-12-2025 11:14-0400 Body weight 84.36 kg Loanaruna Dias DRAWING TENDER-C Work Phone: [phone])[phone] [place] [address] 03-12-2025 11:14-0400 Diastolic blood pressure 79 mm[Hg] Loan Dias DRAWING TENDER-C Work Phone: [phone])[phone] [place] [address] 03-12-2025 11:14-0400 Heart rate 80 /min Loanaruna Dias DRAWING TENDER-C Work Phone: [phone])[phone] [place] [address] 03-12-2025 11:14-0400 Respiratory rate 16 /min Loanaruna Dias DRAWING TENDER-C Work Phone: [facility] 03-12-2025 11:14-0400 Systolic blood pressure 113 mm[Hg] Loan Dias DRAWING TENDER-C Work Phone: [facility] 03-10-2025 13:47-0400 Body height 154.94 cm Loan Dias DRAWING TENDER-C Work Phone: [facility] 03-10-2025 13:47-0400 Body mass index (BMI) [Ratio] 34 kg/m2 Loan Dias DRAWING TENDER-C Work Phone: [facility] 03-10-2025 13:47-0400 Body weight 81.7 kg Loan Dias DRAWING TENDER-C Work Phone: [facility] 03-10-2025 08:54-0400 Body height 154.9 cm Jarred Angeli DPM Work Phone: [facility] 03-10-2025 08:54-0400 Body mass index (BMI) [Ratio] 33.63 kg/m2 Jarred Angeli DPM Work Phone: [facility] 03-10-2025 08:54-0400 Body weight 80.74 kg Jarred Angeli DPM Work Phone: [facility] 03-10-2025 08:54-0400 Respiratory rate 18 /min Jarred Angeli DPM Work Phone: [facility] 12-14-2024 15:36-0400 Body mass index (BMI) [Ratio] 33.6 kg/m2 Loan Dias DRAWING TENDER-C Work Phone: [facility] 12-14-2024 15:36-0400 Body temperature 96.7 [degF] Loan Dias DRAWING TENDER-C Work Phone: [facility] 12-14-2024 15:36-0400 Body weight 80.73 kg Loan Dias DRAWING TENDER-C Work Phone: [facility] 12-14-2024 15:36-0400 Diastolic blood pressure 84 mm[Hg] Loanaruna GalloDias DRAWING TENDER-C Work Phone: [facility] 12-14-2024 15:36-0400 Heart rate 63 /min Loanaruna GalloDias DRAWING TENDER-C Work Phone: [facility] 12-14-2024 15:36-0400 Respiratory rate 16 /min Loanaruna GalloDias DRAWING TENDER-C Work Phone: [facility] 12-14-2024 15:36-0400 SaO2% (BldA) [Mass fraction] 100 % Loanaruna GalloDias DRAWING TENDER-C Work Phone: [facility] 12-14-2024 15:36-0400 Systolic blood pressure 144 mm[Hg] Loan Dias DRAWING TENDER-C Work Phone: [facility] 12-09-2024 11:01-0400 Body temperature 98.29 [degF] Nurse Pob Work Phone: [facility] 11-04-2024 14:42-0400 Body mass index (BMI) [Ratio] 31.18 kg/m2 Francisco Gorman MD Work Phone: [facility] 11-04-2024 14:42-0400 Body weight 74.84 kg Francisco Gorman MD Work Phone: [facility] 11-04-2024 14:42-0400 Diastolic blood pressure 87 mm[Hg] Francisco Gorman MD Work Phone: [facility] 11-04-2024 14:42-0400 Heart rate 76 /min Francisco Gorman MD Work Phone: [facility] 11-04-2024 14:42-0400 SaO2% (BldA) [Mass fraction] 98 % Francisco Gorman MD Work Phone: [facility] 11-04-2024 14:42-0400 Systolic blood pressure 143 mm[Hg] Francisco Gorman MD Work Phone: [facility] 10-28-2024 10:07-0400 Body mass index (BMI) [Ratio] 31.55 kg/m2 Smith Lopez MD Work Phone: [facility] 10-28-2024 10:07-0400 Body weight 75.75 kg Smith Lopez MD Work Phone: [facility] 10-28-2024 10:07-0400 Diastolic blood pressure 80 mm[Hg] Smith Lopez MD Work Phone: [facility] 10-28-2024 10:07-0400 Heart rate 73 /min Smith Lopez MD Work Phone: [facility] 10-28-2024 10:07-0400 SaO2% (BldA) [Mass fraction] 98 % Smith Lopez MD Work Phone: [facility] 10-28-2024 10:07-0400 Systolic blood pressure 138 mm[Hg] Smith Lopez MD Work Phone: [facility] 10-27-2024 14:34-0400 Body height 154.94 cm Loan Dias DRAWING TENDER-C Work Phone: [facility] 10-27-2024 14:34-0400 Body mass index (BMI) [Ratio] 32.7 kg/m2 Loan Dias DRAWING TENDER-C Work Phone: [facility] 10-27-2024 14:34-0400 Body temperature 97.8 [degF] Loan Dias DRAWING TENDER-C Work Phone: [facility] 10-27-2024 14:34-0400 Body weight 78.52 kg Loan Dias DRAWING TENDER-C Work Phone: [facility] 10-27-2024 14:34-0400 Diastolic blood pressure 76 mm[Hg] Loan Dias DRAWING TENDER-C Work Phone: [facility] 10-27-2024 14:34-0400 Heart rate 86 /min Loan Dias DRAWING TENDER-C Work Phone: [facility] 10-27-2024 14:34-0400 Respiratory rate 18 /min Loan Dias DRAWING TENDER-C Work Phone: [facility] 10-27-2024 14:34-0400 SaO2% (BldA) [Mass fraction] 100 % Loan Dias DRAWING TENDER-C Work Phone: [facility] 10-27-2024 14:34-0400 Systolic blood pressure 174 mm[Hg] Loan Dias DRAWING TENDER-C Work Phone: [facility] 10-08-2024 17:44-0500 Body mass index (BMI) [Ratio] 32.3 kg/m2 Loan Dias DRAWING TENDER-C Work Phone: [facility] 10-08-2024 17:44-0500 Body temperature 97.7 [degF] Loan Dias DRAWING TENDER-C Work Phone: [facility] 10-08-2024 17:44-0500 Body weight 77.56 kg Loan Dias DRAWING TENDER-C Work Phone: [facility] 10-08-2024 17:44-0500 Diastolic blood pressure 60 mm[Hg] Loan Dias DRAWING TENDER-C Work Phone: [facility] 10-08-2024 17:44-0500 Heart rate 80 /min Loan Dias DRAWING TENDER-C Work Phone: [facility] 10-08-2024 17:44-0500 Respiratory rate 18 /min Loan Dias DRAWING TENDER-C Work Phone: [facility] 10-08-2024 17:44-0500 SaO2% (BldA) [Mass fraction] 98 % Loan Dias DRAWING TENDER-C Work Phone: [facility] 10-08-2024 17:44-0500 Systolic blood pressure 140 mm[Hg] Loan Dias DRAWING TENDER-C Work Phone: [facility] 09-21-2024 10:29-0500 Body mass index (BMI) [Ratio] 32.9 kg/m2 Loan Dias DRAWING TENDER-C Work Phone: [facility] 09-21-2024 10:29-0500 Body temperature 98.3 [degF] Loan Dias DRAWING TENDER-C Work Phone: [facility] 09-21-2024 10:29-0500 Body weight 79.03 kg Loan Dias DRAWING TENDER-C Work Phone: [facility] 09-21-2024 10:29-0500 Diastolic blood pressure 85 mm[Hg] Loan Dias DRAWING TENDER-C Work Phone: [facility] 09-21-2024 10:29-0500 Heart rate 77 /min Loan Dias DRAWING TENDER-C Work Phone: [facility] 09-21-2024 10:29-0500 Respiratory rate 18 /min Loan Dias DRAWING TENDER-C Work Phone: [facility] 09-21-2024 10:29-0500 SaO2% (BldA) [Mass fraction] 98 % Loan Dias DRAWING TENDER-C Work Phone: [facility] 09-21-2024 10:29-0500 Systolic blood pressure 124 mm[Hg] Loan Dias DRAWING TENDER-C Work Phone: [facility] 09-10-2024 15:00-0500 Diastolic blood pressure 71 mm[Hg] Smith Lopez MD Work Phone: [facility] 09-10-2024 15:00-0500 Systolic blood pressure 121 mm[Hg] Smith Lopez MD Work Phone: [facility] 09-10-2024 14:30-0500 Heart rate 88 /min Smith Lopez MD Work Phone: [facility] 09-10-2024 14:30-0500 Respiratory rate 28 /min Smith Lopez MD Work Phone: [facility] 09-10-2024 14:30-0500 SaO2% (BldA) [Mass fraction] 97 % Smith Lopez MD Work Phone: [facility] 08-31-2024 09:07-0500 Body mass index (BMI) [Ratio] 33.5 kg/m2 Loan Dias DRAWING TENDER-C Work Phone: [facility] 08-31-2024 09:07-0500 Body weight 80.45 kg Loan Dias DRAWING TENDER-C Work Phone: [facility] 07-27-2024 10:20-0500 Body height 154.9 cm Ling Mikula ARTIST BLACKSMITH.SERVICE ORDER TAKER Work Phone: [facility] 07-27-2024 10:20-0500 Body mass index (BMI) [Ratio] 32.12 kg/m2 Ling Mikula ARTIST BLACKSMITH.SERVICE ORDER TAKER Work Phone: [facility] 07-27-2024 10:20-0500 Body weight 77.11 kg Ling Mikula ARTIST BLACKSMITH.SERVICE ORDER TAKER Work Phone: [facility] 07-27-2024 10:20-0500 Diastolic blood pressure 72 mm[Hg] Ling Mikula ARTIST BLACKSMITH.SERVICE ORDER TAKER Work Phone: [facility] 07-27-2024 10:20-0500 Heart rate 81 /min Ling Mikula ARTIST BLACKSMITH.SERVICE ORDER TAKER Work Phone: [facility] 07-27-2024 10:20-0500 Systolic blood pressure 125 mm[Hg] Ling Mikula ARTIST BLACKSMITH.SERVICE ORDER TAKER Work Phone: [facility] 06-24-2024 10:09-0500 Body height 154.9 cm Smith Lopez MD Work Phone: [facility] 06-24-2024 10:09-0500 Body mass index (BMI) [Ratio] 32.69 kg/m2 Smith Lopez MD Work Phone: [facility] 06-24-2024 10:09-0500 Body weight 78.47 kg Smith Lopez MD Work Phone: [facility] 06-24-2024 10:09-0500 Diastolic blood pressure 80 mm[Hg] Smith Lopez MD Work Phone: [facility] 06-24-2024 10:09-0500 Heart rate 92 /min Smith Lopez MD Work Phone: [facility] 06-24-2024 10:09-0500 Respiratory rate 18 /min Smith Lopez MD Work Phone: [facility] 06-24-2024 10:09-0500 SaO2% (BldA) [Mass fraction] 98 % Smith Lopez MD Work Phone: [facility] 06-24-2024 10:09-0500 Systolic blood pressure 120 mm[Hg] Smith Lopez MD Work Phone: [facility] 06-09-2024 13:23-0400 Body height 154.9 cm Ling Mikula ARTIST BLACKSMITH.SERVICE ORDER TAKER Work Phone: [facility] 06-09-2024 13:23-0400 Body mass index (BMI) [Ratio] 31.74 kg/m2 Ling Mikula ARTIST BLACKSMITH.SERVICE ORDER TAKER Work Phone: [facility] 06-09-2024 13:23-0400 Body weight 76.2 kg Ling Mikula ARTIST BLACKSMITH.SERVICE ORDER TAKER Work Phone: [facility] 06-09-2024 13:23-0400 Diastolic blood pressure 88 mm[Hg] Ling Mikula ARTIST BLACKSMITH.SERVICE ORDER TAKER Work Phone: [facility] 06-09-2024 13:23-0400 Heart rate 82 /min Ling Mikula ARTIST BLACKSMITH.SERVICE ORDER TAKER Work Phone: [facility] 06-09-2024 13:23-0400 Systolic blood pressure 150 mm[Hg] Ling Mikula ARTIST BLACKSMITH.SERVICE ORDER TAKER Work Phone: [facility] 12-21-2023 10:27-0400 Body height 154.94 cm DRAWING TENDER-C Loan Dias DRAWING TENDER Work Phone: [facility] 12-21-2023 10:27-0400 Body mass index (BMI) [Ratio] 33.8 kg/m2 DRAWING TENDER-C Loan Galloson DRAWING TENDER Work Phone: [facility] 12-21-2023 10:27-0400 Body temperature 96.9 [degF] DRAWING TENDER-C Loan Dias DRAWING TENDER Work Phone: [facility] 12-21-2023 10:27-0400 Body weight 81.19 kg DRAWING TENDER-C Loan Dias DRAWING TENDER Work Phone: [facility] 12-21-2023 10:27-0400 Diastolic blood pressure 85 mm[Hg] DRAWING TENDER-C Loan Galloson DRAWING TENDER Work Phone: [facility] 12-21-2023 10:27-0400 Heart rate 60 /min DRAWING TENDER-C Loan Dias DRAWING TENDER Work Phone: [facility] 12-21-2023 10:27-0400 Respiratory rate 14 /min DRAWING TENDER-C Loan Dias DRAWING TENDER Work Phone: [facility] 12-21-2023 10:27-0400 SaO2% (BldA) [Mass fraction] 97 % DRAWING TENDER-C Loan Dias DRAWING TENDER Work Phone: [facility] 12-21-2023 10:27-0400 Systolic blood pressure 107 mm[Hg] DRAWING TENDER-C Loan Galloson DRAWING TENDER Work Phone: [facility] 12-12-2023 15:09-0400 Body temperature 98.1 [degF] DRAWING TENDER-C Loan Galloson DRAWING TENDER Work Phone: [facility] 12-12-2023 15:09-0400 Diastolic blood pressure 74 mm[Hg] DRAWING TENDER-C Loan Dias DRAWING TENDER Work Phone: [facility] 12-12-2023 15:09-0400 Heart rate 82 /min DRAWING TENDER-C Loan Galloson DRAWING TENDER Work Phone: [facility] 12-12-2023 15:09-0400 Respiratory rate 16 /min DRAWING TENDER-C Loan Dias DRAWING TENDER Work Phone: [facility] 12-12-2023 15:09-0400 SaO2% (BldA) [Mass fraction] 99 % DRAWING TENDER-C Loan Dias DRAWING TENDER Work Phone: [facility] 12-12-2023 15:09-0400 Systolic blood pressure 138 mm[Hg] DRAWING TENDER-C Loan Dias DRAWING TENDER Work Phone: [facility] 12-12-2023 12:25-0400 Body height 154.94 cm DRAWING TENDER-C Loan Dias DRAWING TENDER Work Phone: [facility] 12-12-2023 12:25-0400 Body mass index (BMI) [Ratio] 34.2 kg/m2 DRAWING TENDER-C Loan Dias DRAWING TENDER Work Phone: [facility] 12-12-2023 12:25-0400 Body weight 82.29 kg DRAWING TENDER-C Loan Dias DRAWING TENDER Work Phone: [facility] 12-03-2023 16:05-0400 Body temperature 98.3 [degF] DRAWING TENDER-C Loan Dias DRAWING TENDER Work Phone: [facility] 12-03-2023 16:05-0400 Diastolic blood pressure 75 mm[Hg] DRAWING TENDER-C Loan Dias DRAWING TENDER Work Phone: [facility] 12-03-2023 16:05-0400 Heart rate 70 /min DRAWING TENDER-C Loan Dias DRAWING TENDER Work Phone: [facility] 12-03-2023 16:05-0400 Respiratory rate 16 /min DRAWING TENDER-C Loan Dias DRAWING TENDER Work Phone: [facility] 12-03-2023 16:05-0400 SaO2% (BldA) [Mass fraction] 96 % DRAWING TENDER-C Loan Dias DRAWING TENDER Work Phone: 8([phone] [place] [address] 12-03-2023 16:05-0400 Systolic blood pressure 132 mm[Hg] DRAWING TENDER-C Loan Dias DRAWING TENDER Work Phone: [facility] 12-03-2023 14:30-0400 Inhaled oxygen flow rate 1 L/min DRAWING TENDER-C Loan Dias DRAWING TENDER Work Phone: [facility] 12-03-2023 09:37-0400 Body height 154.94 cm DRAWING TENDER-C Loan Dias DRAWING TENDER Work Phone: [facility] 12-03-2023 09:37-0400 Body mass index (BMI) [Ratio] 34.3 kg/m2 DRAWING TENDER-C Loan Dias DRAWING TENDER Work Phone: 1(047)[phone] [place] [address] 12-03-2023 09:37-0400 Body weight 82.5 kg DRAWING TENDER-C Loan Dias DRAWING TENDER Work Phone: [facility] 11-04-2023 11:12-0400 Body height 154.94 cm DRAWING TENDER-C Loan Dias DRAWING TENDER Work Phone: [facility] 11-04-2023 11:12-0400 Body mass index (BMI) [Ratio] 35.3 kg/m2 DRAWING TENDER-C Loan Galloson DRAWING TENDER Work Phone: [facility] 11-04-2023 11:12-0400 Body weight 84.82 kg DRAWING TENDER-C Loan Dias DRAWING TENDER Work Phone: [facility] 11-04-2023 11:12-0400 Diastolic blood pressure 77 mm[Hg] DRAWING TENDER-C Loan Dias DRAWING TENDER Work Phone: [facility] 11-04-2023 11:12-0400 Heart rate 76 /min DRAWING TENDER-C Loan Galloson DRAWING TENDER Work Phone: [facility] 11-04-2023 11:12-0400 Respiratory rate 18 /min DRAWING TENDER-C Loan Dias DRAWING TENDER Work Phone: [facility] 11-04-2023 11:12-0400 SaO2% (BldA) [Mass fraction] 100 % DRAWING TENDER-C Loan Dias DRAWING TENDER Work Phone: [facility] 11-04-2023 11:12-0400 Systolic blood pressure 115 mm[Hg] DRAWING TENDER-C Loan Galloson DRAWING TENDER Work Phone: [facility] 11-04-2023 08:58-0400 Body mass index (BMI) [Ratio] 35.3 kg/m2 DRAWING TENDER-C Loan Dias DRAWING TENDER Work Phone: [facility] 11-04-2023 08:58-0400 Body temperature 97.6 [degF] DRAWING TENDER-C Loan Dias DRAWING TENDER Work Phone: [facility] 11-04-2023 08:58-0400 Body weight 84.85 kg DRAWING TENDER-C Loan Dias DRAWING TENDER Work Phone: [facility] 11-04-2023 08:58-0400 Diastolic blood pressure 75 mm[Hg] DRAWING TENDER-C Loan Dias DRAWING TENDER Work Phone: [facility] 11-04-2023 08:58-0400 Heart rate 83 /min DRAWING TENDER-C Loan Dias DRAWING TENDER Work Phone: [facility] 11-04-2023 08:58-0400 Respiratory rate 16 /min DRAWING TENDER-C Loan Dias DRAWING TENDER Work Phone: [facility] 11-04-2023 08:58-0400 SaO2% (BldA) [Mass fraction] 97 % DRAWING TENDER-C Loan Galloson DRAWING TENDER Work Phone: [facility] 11-04-2023 08:58-0400 Systolic blood pressure 110 mm[Hg] DRAWING TENDER-C Loan Galloson DRAWING TENDER Work Phone: [facility] 10-11-2023 17:46-0500 Body mass index (BMI) [Ratio] 36.2 kg/m2 DRAWING TENDER-C Loan Galloson DRAWING TENDER Work Phone: [facility] 10-11-2023 17:46-0500 Body temperature 97.5 [degF] DRAWING TENDER-C Loan Dias DRAWING TENDER Work Phone: [facility] 10-11-2023 17:46-0500 Body weight 87.08 kg DRAWING TENDER-C Loan Dias DRAWING TENDER Work Phone: [facility] 10-11-2023 17:46-0500 Diastolic blood pressure 80 mm[Hg] DRAWING TENDER-C Loan Dias DRAWING TENDER Work Phone: [facility] 10-11-2023 17:46-0500 Heart rate 76 /min DRAWING TENDER-C Loan Dias DRAWING TENDER Work Phone: [facility] 10-11-2023 17:46-0500 Respiratory rate 18 /min DRAWING TENDER-C Loan Dias DRAWING TENDER Work Phone: [facility] 10-11-2023 17:46-0500 SaO2% (BldA) [Mass fraction] 98 % DRAWING TENDER-C Loan Dias DRAWING TENDER Work Phone: [facility] 10-11-2023 17:46-0500 Systolic blood pressure 142 mm[Hg] DRAWING TENDER-C Loan Dias DRAWING TENDER Work Phone: [facility] 09-23-2023 10:37-0500 Body height 154.94 cm DRAWING TENDER-C Loan Dias DRAWING TENDER Work Phone: [facility] 09-23-2023 10:37-0500 Body mass index (BMI) [Ratio] 36.7 kg/m2 DRAWING TENDER-C Loan Dias DRAWING TENDER Work Phone: [facility] 09-23-2023 10:37-0500 Body temperature 99.1 [degF] DRAWING TENDER-C Loan Dias DRAWING TENDER Work Phone: [facility] 09-23-2023 10:37-0500 Body weight 88.11 kg DRAWING TENDER-C Loan Dias DRAWING TENDER Work Phone: [facility] 09-23-2023 10:37-0500 Diastolic blood pressure 72 mm[Hg] DRAWING TENDER-C Loan Dias DRAWING TENDER Work Phone: [facility] 09-23-2023 10:37-0500 Heart rate 75 /min DRAWING TENDER-C Loan Dias DRAWING TENDER Work Phone: [facility] 09-23-2023 10:37-0500 Respiratory rate 18 /min DRAWING TENDER-C Loan Dias DRAWING TENDER Work Phone: [facility] 09-23-2023 10:37-0500 SaO2% (BldA) [Mass fraction] 99 % DRAWING TENDER-C Loan Dias DRAWING TENDER Work Phone: [facility] 09-23-2023 10:37-0500 Systolic blood pressure 105 mm[Hg] DRAWING TENDER-C Loan Dias DRAWING TENDER Work Phone: [facility] 09-09-2023 10:18-0500 Body mass index (BMI) [Ratio] 37.3 kg/m2 DRAWING TENDER-C Loan Dias DRAWING TENDER Work Phone: 5(177)[phone] [place] [address] 09-09-2023 10:18-0500 Body weight 89.58 kg DRAWING TENDER-C Loan Dias DRAWING TENDER Work Phone: [facility] 08-06-2023 13:28-0500 Body height 154.94 cm DRAWING TENDER-C Loan Dias DRAWING TENDER Work Phone: [facility] 08-06-2023 13:28-0500 Body mass index (BMI) [Ratio] 38.1 kg/m2 DRAWING TENDER-C Loan Dias DRAWING TENDER Work Phone: [facility] 08-06-2023 13:28-0500 Body weight 91.62 kg DRAWING TENDER-C Loan Dias DRAWING TENDER Work Phone: [facility] 08-06-2023 13:28-0500 Diastolic blood pressure 82 mm[Hg] DRAWING TENDER-C Loan Dias DRAWING TENDER Work Phone: [facility] 08-06-2023 13:28-0500 Heart rate 79 /min DRAWING TENDER-C Loan Dias DRAWING TENDER Work Phone: 4([phone] [place] [address] 08-06-2023 13:28-0500 Respiratory rate 18 /min DRAWING TENDER-C Loan Dias DRAWING TENDER Work Phone: [facility] 08-06-2023 13:28-0500 SaO2% (BldA) [Mass fraction] 99 % DRAWING TENDER-C Loan Dias DRAWING TENDER Work Phone: [facility] 08-06-2023 13:28-0500 Systolic blood pressure 125 mm[Hg] DRAWING TENDER-C Loan Dias DRAWING TENDER Work Phone: [facility] 07-29-2023 19:57-0500 Body height 154.94 cm DRAWING TENDER-C Loan Dias DRAWING TENDER Work Phone: [facility] 07-29-2023 19:57-0500 Body mass index (BMI) [Ratio] 38.5 kg/m2 DRAWING TENDER-C Loan Dias DRAWING TENDER Work Phone: [facility] 07-29-2023 19:57-0500 Body temperature 97.9 [degF] DRAWING TENDER-C Loan Dias DRAWING TENDER Work Phone: [facility] 07-29-2023 19:57-0500 Body weight 92.53 kg DRAWING TENDER-C Loan Dias DRAWING TENDER Work Phone: [facility] 07-29-2023 19:57-0500 Diastolic blood pressure 90 mm[Hg] DRAWING TENDER-C Loan Dias DRAWING TENDER Work Phone: [facility] 07-29-2023 19:57-0500 Heart rate 79 /min DRAWING TENDER-C Loan Dias DRAWING TENDER Work Phone: [facility] 07-29-2023 19:57-0500 Respiratory rate 18 /min DRAWING TENDER-C Loan Dias DRAWING TENDER Work Phone: [facility] 07-29-2023 19:57-0500 SaO2% (BldA) [Mass fraction] 98 % DRAWING TENDER-C Loan Dias DRAWING TENDER Work Phone: [facility] 07-29-2023 19:57-0500 Systolic blood pressure 148 mm[Hg] DRAWING TENDER-C Loan Dias DRAWING TENDER Work Phone: [facility] 05-27-2023 10:24-0400 Body mass index (BMI) [Ratio] 39.1 kg/m2 DRAWING TENDER-C Loan Dias DRAWING TENDER Work Phone: [facility] 05-27-2023 10:24-0400 Body temperature 98.5 [degF] DRAWING TENDER-C Loan Galloson DRAWING TENDER Work Phone: [facility] 05-27-2023 10:24-0400 Body weight 93.95 kg DRAWING TENDER-C Loan Dias DRAWING TENDER Work Phone: [facility] 05-27-2023 10:24-0400 Diastolic blood pressure 85 mm[Hg] DRAWING TENDER-C Loan Galloson DRAWING TENDER Work Phone: [facility] 05-27-2023 10:24-0400 Heart rate 72 /min DRAWING TENDER-C Loan Dias DRAWING TENDER Work Phone: [facility] 05-27-2023 10:24-0400 Respiratory rate 18 /min DRAWING TENDER-C Loan Dias DRAWING TENDER Work Phone: [facility] 05-27-2023 10:24-0400 SaO2% (BldA) [Mass fraction] 97 % DRAWING TENDER-C Loan Dias DRAWING TENDER Work Phone: [facility] 05-27-2023 10:24-0400 Systolic blood pressure 129 mm[Hg] DRAWING TENDER-C Loan Galloson DRAWING TENDER Work Phone: [facility] 05-06-2023 08:58-0400 Body mass index (BMI) [Ratio] 38.5 kg/m2 DRAWING TENDER-C Loan Dias DRAWING TENDER Work Phone: [facility] 05-06-2023 08:58-0400 Body temperature 97.4 [degF] DRAWING TENDER-C Loan Galloson DRAWING TENDER Work Phone: [facility] 05-06-2023 08:58-0400 Body weight 92.61 kg DRAWING TENDER-C Loan Dias DRAWING TENDER Work Phone: [facility] 05-06-2023 08:58-0400 Diastolic blood pressure 89 mm[Hg] DRAWING TENDER-C Loan Dias DRAWING TENDER Work Phone: [facility] 05-06-2023 08:58-0400 Heart rate 72 /min DRAWING TENDER-C Loan Dias DRAWING TENDER Work Phone: [facility] 05-06-2023 08:58-0400 Respiratory rate 18 /min DRAWING TENDER-C Loan Dias DRAWING TENDER Work Phone: [facility] 05-06-2023 08:58-0400 SaO2% (BldA) [Mass fraction] 98 % DRAWING TENDER-C Loan Dias DRAWING TENDER Work Phone: [facility] 05-06-2023 08:58-0400 Systolic blood pressure 133 mm[Hg] DRAWING TENDER-C Loan Dias DRAWING TENDER Work Phone: [facility] 03-06-2023 10:07-0400 Body height 154.94 cm DRAWING TENDER-C Loan Dias DRAWING TENDER Work Phone: [facility] 03-06-2023 10:07-0400 Body mass index (BMI) [Ratio] 38.4 kg/m2 DRAWING TENDER-C Loan Galloson DRAWING TENDER Work Phone: [facility] 03-06-2023 10:07-0400 Body weight 92.19 kg DRAWING TENDER-C Loan Galloson DRAWING TENDER Work Phone: [facility] 03-06-2023 10:07-0400 Diastolic blood pressure 91 mm[Hg] DRAWING TENDER-C Loan Dias DRAWING TENDER Work Phone: [facility] 03-06-2023 10:07-0400 Heart rate 89 /min DRAWING TENDER-C Loan Dias DRAWING TENDER Work Phone: [facility] 03-06-2023 10:07-0400 Respiratory rate 18 /min DRAWING TENDER-C Loan Dias DRAWING TENDER Work Phone: [facility] 03-06-2023 10:07-0400 SaO2% (BldA) [Mass fraction] 98 % DRAWING TENDER-C Loan Dias DRAWING TENDER Work Phone: [facility] 03-06-2023 10:07-0400 Systolic blood pressure 159 mm[Hg] DRAWING TENDER-C Loan Dias DRAWING TENDER Work Phone: [facility] 02-28-2023 09:32-0400 Body height 154.94 cm DRAWING TENDER-C Loan Dias DRAWING TENDER Work Phone: [facility] 02-28-2023 09:32-0400 Body mass index (BMI) [Ratio] 38.7 kg/m2 DRAWING TENDER-C Loan Dias DRAWING TENDER Work Phone: 1(755)[phone] [place] [address] 02-28-2023 09:32-0400 Body temperature 97.4 [degF] DRAWING TENDER-C Loan Dias DRAWING TENDER Work Phone: [phone] [place] [address] 02-28-2023 09:32-0400 Body weight 92.98 kg DRAWING TENDER-C Loan Dias DRAWING TENDER Work Phone: [phone])[phone] [place] [address] 02-28-2023 09:32-0400 Diastolic blood pressure 81 mm[Hg] DRAWING TENDER-C Loan Dias DRAWING TENDER Work Phone: [facility] 02-28-2023 09:32-0400 Heart rate 84 /min DRAWING TENDER-C Loan Dias DRAWING TENDER Work Phone: [facility] 02-28-2023 09:32-0400 Respiratory rate 16 /min DRAWING TENDER-C Loan Dias DRAWING TENDER Work Phone: [facility] 02-28-2023 09:32-0400 SaO2% (BldA) [Mass fraction] 98 % DRAWING TENDER-C Loan Dias DRAWING TENDER Work Phone: [facility] 02-28-2023 09:32-0400 Systolic blood pressure 124 mm[Hg] DRAWING TENDER-C Loan Dias DRAWING TENDER Work Phone: [phone] [place] [address] 02-20-2023 09:32-0400 Body mass index (BMI) [Ratio] 38.7 kg/m2 DRAWING TENDER-C Loan Dias DRAWING TENDER Work Phone: [facility] 02-20-2023 09:32-0400 Body temperature 98.1 [degF] DRAWING TENDER-C Loan Dias DRAWING TENDER Work Phone: [facility] 02-20-2023 09:32-0400 Body weight 93.04 kg DRAWING TENDER-C Loan Dias DRAWING TENDER Work Phone: [facility] 02-20-2023 09:32-0400 Diastolic blood pressure 88 mm[Hg] DRAWING TENDER-C Loan Dias DRAWING TENDER Work Phone: [facility] 02-20-2023 09:32-0400 Heart rate 91 /min DRAWING TENDER-C Loan Dias DRAWING TENDER Work Phone: [facility] 02-20-2023 09:32-0400 Respiratory rate 16 /min DRAWING TENDER-C Loan Dias DRAWING TENDER Work Phone: [facility] 02-20-2023 09:32-0400 SaO2% (BldA) [Mass fraction] 98 % DRAWING TENDER-C Loan Dias DRAWING TENDER Work Phone: [facility] 02-20-2023 09:32-0400 Systolic blood pressure 141 mm[Hg] DRAWING TENDER-C Loan Dias DRAWING TENDER Work Phone: [facility] 01-28-2023 10:50-0400 Body mass index (BMI) [Ratio] 38.6 kg/m2 DRAWING TENDER-C Loan Dias DRAWING TENDER Work Phone: [facility] 01-28-2023 10:50-0400 Body temperature 97.5 [degF] DRAWING TENDER-C Loan Galloson DRAWING TENDER Work Phone: [facility] 01-28-2023 10:50-0400 Body weight 92.7 kg DRAWING TENDER-C Loan Dias DRAWING TENDER Work Phone: [facility] 01-28-2023 10:50-0400 Diastolic blood pressure 85 mm[Hg] DRAWING TENDER-C Loan Dias DRAWING TENDER Work Phone: [facility] 01-28-2023 10:50-0400 Heart rate 69 /min DRAWING TENDER-C Loan Dias DRAWING TENDER Work Phone: [facility] 01-28-2023 10:50-0400 Respiratory rate 18 /min DRAWING TENDER-C Loan Dias DRAWING TENDER Work Phone: [facility] 01-28-2023 10:50-0400 SaO2% (BldA) [Mass fraction] 99 % DRAWING TENDER-C Loan Dias DRAWING TENDER Work Phone: [facility] 01-28-2023 10:50-0400 Systolic blood pressure 148 mm[Hg] DRAWING TENDER-C Loan Dias DRAWING TENDER Work Phone: [phone] [place] [address] 12-28-2022 11:50-0400 Body height 154.94 cm DRAWING TENDER-C Loan Dias DRAWING TENDER Work Phone: [phone] [place] [address] 12-28-2022 11:50-0400 Diastolic blood pressure 90 mm[Hg] DRAWING TENDER-C Loan Dias DRAWING TENDER Work Phone: [facility] 12-28-2022 11:50-0400 Systolic blood pressure 130 mm[Hg] DRAWING TENDER-C Loan Dias DRAWING TENDER Work Phone: [facility] 12-28-2022 09:41-0400 Body temperature 98.5 [degF] DRAWING TENDER-C Loan Dias DRAWING TENDER Work Phone: [facility] 12-28-2022 09:41-0400 Body weight 92.07 kg DRAWING TENDER-C Loan Dias DRAWING TENDER Work Phone: [facility] 12-28-2022 09:41-0400 Heart rate 90 /min DRAWING TENDER-C Loan Dias DRAWING TENDER Work Phone: [facility] 12-28-2022 09:41-0400 Respiratory rate 18 /min DRAWING TENDER-C Loan Dias DRAWING TENDER Work Phone: [facility] 12-28-2022 09:41-0400 SaO2% (BldA) [Mass fraction] 100 % DRAWING TENDER-C Loan Dias DRAWING TENDER Work Phone: [facility] 11-05-2022 13:04-0400 Body mass index (BMI) [Ratio] 38 kg/m2 DRAWING TENDER-C Loan Dias DRAWING TENDER Work Phone: [facility] 11-05-2022 13:04-0400 Body weight 91.17 kg DRAWING TENDER-C Loan Dias DRAWING TENDER Work Phone: [facility] 11-05-2022 13:04-0400 Diastolic blood pressure 83 mm[Hg] DRAWING TENDER-C Loan Dias DRAWING TENDER Work Phone: [facility] 11-05-2022 13:04-0400 Respiratory rate 16 /min DRAWING TENDER-C Loan Dias DRAWING TENDER Work Phone: [facility] 11-05-2022 13:04-0400 SaO2% (BldA) [Mass fraction] 98 % DRAWING TENDER-C Loan Dias DRAWING TENDER Work Phone: [facility] 11-05-2022 13:04-0400 Systolic blood pressure 128 mm[Hg] DRAWING TENDER-C Loan Dias DRAWING TENDER Work Phone: [facility] 11-01-2022 10:01-0400 Body height 154.94 cm DRAWING TENDER-C Loan Dias DRAWING TENDER Work Phone: [facility] 11-01-2022 10:01-0400 Body mass index (BMI) [Ratio] 35.9 kg/m2 DRAWING TENDER-C Loan Dias DRAWING TENDER Work Phone: [facility] 11-01-2022 10:01-0400 Body temperature 97.6 [degF] DRAWING TENDER-C Loan Dias DRAWING TENDER Work Phone: [facility] 11-01-2022 10:01-0400 Body weight 86.18 kg DRAWING TENDER-C Loan Dias DRAWING TENDER Work Phone: [facility] 11-01-2022 10:01-0400 Diastolic blood pressure 84 mm[Hg] DRAWING TENDER-C Loan Dias DRAWING TENDER Work Phone: [facility] 11-01-2022 10:01-0400 Heart rate 81 /min DRAWING TENDER-C Loan Dias DRAWING TENDER Work Phone: [facility] 11-01-2022 10:01-0400 Respiratory rate 16 /min DRAWING TENDER-C Loan Dias DRAWING TENDER Work Phone: [facility] 11-01-2022 10:01-0400 SaO2% (BldA) [Mass fraction] 97 % DRAWING TENDER-C Loan Dias DRAWING TENDER Work Phone: [facility] 11-01-2022 10:01-0400 Systolic blood pressure 133 mm[Hg] DRAWING TENDER-C Loan Dias DRAWING TENDER Work Phone: [facility] 07-25-2022 10:33-0500 Body mass index (BMI) [Ratio] 37 kg/m2 DRAWING TENDER-C Loan Dias DRAWING TENDER Work Phone: [facility] 07-25-2022 10:33-0500 Body temperature 98.3 [degF] DRAWING TENDER-C Loan Dias DRAWING TENDER Work Phone: [facility] 07-25-2022 10:33-0500 Body weight 88.9 kg DRAWING TENDER-C Loan Dias DRAWING TENDER Work Phone: [facility] 07-25-2022 10:33-0500 Diastolic blood pressure 82 mm[Hg] DRAWING TENDER-C Loan Dias DRAWING TENDER Work Phone: [facility] 07-25-2022 10:33-0500 Heart rate 79 /min DRAWING TENDER-C Loan Galloson DRAWING TENDER Work Phone: [facility] 07-25-2022 10:33-0500 Respiratory rate 16 /min DRAWING TENDER-C Loan Dias DRAWING TENDER Work Phone: [facility] 07-25-2022 10:33-0500 SaO2% (BldA) [Mass fraction] 99 % DRAWING TENDER-C Loan Dias DRAWING TENDER Work Phone: [facility] 07-25-2022 10:33-0500 Systolic blood pressure 122 mm[Hg] DRAWING TENDER-C Loan Dias DRAWING TENDER Work Phone: [facility] 05-21-2022 09:36-0400 Body temperature 97.6 [degF] DRAWING TENDER-C Loan Dias DRAWING TENDER Work Phone: [facility] Work Phone: 05-21-2022 09:36-0400 Diastolic blood pressure 83 mm[Hg] DRAWING TENDER-C Loan Dias DRAWING TENDER Work Phone: [facility] Work Phone: 05-21-2022 09:36-0400 Heart rate 69 /min DRAWING TENDER-C Loan Dias DRAWING TENDER Work Phone: [facility] Work Phone: 05-21-2022 09:36-0400 Respiratory rate 16 /min DRAWING TENDER-C Loan Dias DRAWING TENDER Work Phone: [facility] Work Phone: 05-21-2022 09:36-0400 SaO2% (BldA) [Mass fraction] 100 % DRAWING TENDER-C Loan Dias DRAWING TENDER Work Phone: [facility] Work Phone: 05-21-2022 09:36-0400 Systolic blood pressure 130 mm[Hg] DRAWING TENDER-C Loan Dias DRAWING TENDER Work Phone: [facility] Work Phone: 05-21-2022 07:49-0400 Body height 154.94 cm DRAWING TENDER-C Loan Dias DRAWING TENDER Work Phone: [facility] Work Phone: 05-21-2022 07:49-0400 Body mass index (BMI) [Ratio] 35.6 kg/m2 DRAWING TENDER-C Loan Dias DRAWING TENDER Work Phone: [facility] Work Phone: 05-21-2022 07:49-0400 Body weight 85.54 kg DRAWING TENDER-C Loan Dias DRAWING TENDER Work Phone: [facility] Work Phone: 04-25-2022 11:47-0400 Body mass index (BMI) [Ratio] 34.9 kg/m2 DRAWING TENDER-C Loan Dias DRAWING TENDER Work Phone: [facility] Work Phone: 04-25-2022 11:47-0400 Body weight 83.91 kg DRAWING TENDER-C Loan Dias DRAWING TENDER Work Phone: [facility] Work Phone: 04-25-2022 08:30-0400 Body mass index (BMI) [Ratio] 35.6 kg/m2 DRAWING TENDER-C Loan Dias DRAWING TENDER Work Phone: [facility] Work Phone: 04-25-2022 08:30-0400 Body temperature 98 [degF] DRAWING TENDER-C Loan Dias DRAWING TENDER Work Phone: [facility] Work Phone: 04-25-2022 08:30-0400 Body weight 85.72 kg DRAWING TENDER-C Loan Dias DRAWING TENDER Work Phone: [facility] Work Phone: 04-25-2022 08:30-0400 Diastolic blood pressure 93 mm[Hg] DRAWING TENDER-C Loan Dias DRAWING TENDER Work Phone: [facility] Work Phone: 04-25-2022 08:30-0400 Heart rate 71 /min DRAWING TENDER-C Loan Dias DRAWING TENDER Work Phone: [facility] Work Phone: 04-25-2022 08:30-0400 Respiratory rate 18 /min DRAWING TENDER-C Loan Dias DRAWING TENDER Work Phone: [facility] Work Phone: 04-25-2022 08:30-0400 SaO2% (BldA) [Mass fraction] 97 % DRAWING TENDER-C Loan Dias DRAWING TENDER Work Phone: [facility] Work Phone: 04-25-2022 08:30-0400 Systolic blood pressure 146 mm[Hg] DRAWING TENDER-C Loan Dias DRAWING TENDER Work Phone: [facility] Work Phone: 02-05-2022 08:38-0400 Body mass index (BMI) [Ratio] 36.3 kg/m2 DRAWING TENDER-C Loan Dias DRAWING TENDER Work Phone: [facility] Work Phone: 02-05-2022 08:38-0400 Body temperature 97.7 [degF] DRAWING TENDER-C Loan Dias DRAWING TENDER Work Phone: [facility] Work Phone: 02-05-2022 08:38-0400 Body weight 87.17 kg DRAWING TENDER-C Loan Arun DRAWING TENDER Work Phone: [facility] Work Phone: 02-05-2022 08:38-0400 Diastolic blood pressure 86 mm[Hg] DRAWING TENDER-C Loan Dias DRAWING TENDER Work Phone: [facility] Work Phone: 02-05-2022 08:38-0400 Heart rate 70 /min DRAWING TENDER-C Loan Dias DRAWING TENDER Work Phone: [facility] Work Phone: 02-05-2022 08:38-0400 Respiratory rate 16 /min DRAWING TENDER-C Loan Dias DRAWING TENDER Work Phone: [facility] Work Phone: 02-05-2022 08:38-0400 SaO2% (BldA) [Mass fraction] 100 % DRAWING TENDER-C Loan Dias DRAWING TENDER Work Phone: [facility] Work Phone: 02-05-2022 08:38-0400 Systolic blood pressure 138 mm[Hg] DRAWING TENDER-C Loan Dias DRAWING TENDER Work Phone: [facility] Work Phone: 01-29-2022 08:42-0400 Body mass index (BMI) [Ratio] 36.1 kg/m2 DRAWING TENDER-C Loan Dias DRAWING TENDER Work Phone: [facility] Work Phone: 01-29-2022 08:42-0400 Body weight 86.63 kg DRAWING TENDER-C Loan Dias DRAWING TENDER Work Phone: [facility] Work Phone: 01-25-2022 19:55-0400 Body mass index (BMI) [Ratio] 35.9 kg/m2 DRAWING TENDER-C Loan Dias DRAWING TENDER Work Phone: [facility] Work Phone: 01-25-2022 19:55-0400 Body temperature 97.7 [degF] DRAWING TENDER-C Loan Dias DRAWING TENDER Work Phone: [facility] Work Phone: 01-25-2022 19:55-0400 Body weight 86.18 kg DRAWING TENDER-C Loan Dias DRAWING TENDER Work Phone: [facility] Work Phone: 01-25-2022 19:55-0400 Diastolic blood pressure 70 mm[Hg] DRAWING TENDER-C Loan Dias DRAWING TENDER Work Phone: [facility] Work Phone: 01-25-2022 19:55-0400 Heart rate 118 /min DRAWING TENDER-C Loan Dias DRAWING TENDER Work Phone: [facility] Work Phone: 01-25-2022 19:55-0400 Respiratory rate 18 /min DRAWING TENDER-C Loan Dias DRAWING TENDER Work Phone: [facility] Work Phone: 01-25-2022 19:55-0400 SaO2% (BldA) [Mass fraction] 99 % DRAWING TENDER-C Loan Arun DRAWING TENDER Work Phone: [facility] Work Phone: 01-25-2022 19:55-0400 Systolic blood pressure 120 mm[Hg] DRAWING TENDER-C Loan Dias DRAWING TENDER Work Phone: [facility] Work Phone: 01-24-2022 12:54-0400 Body mass index (BMI) [Ratio] 35.9 kg/m2 DRAWING TENDER-C Loan Dias DRAWING TENDER Work Phone: [facility] Work Phone: 01-24-2022 12:54-0400 Body temperature 97.8 [degF] DRAWING TENDER-C Loan Dias DRAWING TENDER Work Phone: [facility] Work Phone: 01-24-2022 12:54-0400 Body weight 86.18 kg DRAWING TENDER-C Loan Dias DRAWING TENDER Work Phone: [facility] Work Phone: 01-24-2022 12:54-0400 Diastolic blood pressure 86 mm[Hg] DRAWING TENDER-C Loan Dias DRAWING TENDER Work Phone: [facility] Work Phone: 01-24-2022 12:54-0400 Heart rate 81 /min DRAWING TENDER-C Loan Dias DRAWING TENDER Work Phone: [facility] Work Phone: 01-24-2022 12:54-0400 Respiratory rate 15 /min DRAWING TENDER-C Loan Dias DRAWING TENDER Work Phone: [facility] Work Phone: 01-24-2022 12:54-0400 SaO2% (BldA) [Mass fraction] 96 % DRAWING TENDER-C Loan Dias DRAWING TENDER Work Phone: [facility] Work Phone: 01-24-2022 12:54-0400 Systolic blood pressure 122 mm[Hg] DRAWING TENDER-C Loan Arun DRAWING TENDER Work Phone: [facility] Work Phone: 01-23-2022 14:42-0400 Body mass index (BMI) [Ratio] 36.6 kg/m2 DRAWING TENDER-C Loan Dias DRAWING TENDER Work Phone: [facility] Work Phone: 01-23-2022 14:42-0400 Body temperature 97.7 [degF] DRAWING TENDER-C Loan Dias DRAWING TENDER Work Phone: [facility] Work Phone: 01-23-2022 14:42-0400 Body weight 87.99 kg DRAWING TENDER-C Loan Dias DRAWING TENDER Work Phone: [facility] Work Phone: 01-23-2022 14:42-0400 Diastolic blood pressure 84 mm[Hg] DRAWING TENDER-C Loan Dias DRAWING TENDER Work Phone: [facility] Work Phone: 01-23-2022 14:42-0400 Heart rate 90 /min DRAWING TENDER-C Loan Dias DRAWING TENDER Work Phone: [facility] Work Phone: 01-23-2022 14:42-0400 Respiratory rate 18 /min DRAWING TENDER-C Loan Dias DRAWING TENDER Work Phone: [facility] Work Phone: 01-23-2022 14:42-0400 SaO2% (BldA) [Mass fraction] 97 % DRAWING TENDER-C Loan Dias DRAWING TENDER Work Phone: [facility] Work Phone: 01-23-2022 14:42-0400 Systolic blood pressure 160 mm[Hg] DRAWING TENDER-C Loan Dias DRAWING TENDER Work Phone: [facility] Work Phone: 01-21-2022 14:33-0400 Diastolic blood pressure 86 mm[Hg] DRAWING TENDER-C Loan Arun DRAWING TENDER Work Phone: [facility] Work Phone: 01-21-2022 14:33-0400 Systolic blood pressure 168 mm[Hg] DRAWING TENDER-C Loan Dias DRAWING TENDER Work Phone: [facility] Work Phone: 01-21-2022 13:00-0400 Heart rate 74 /min DRAWING TENDER-C Loan Dias DRAWING TENDER Work Phone: [facility] Work Phone: 01-21-2022 13:00-0400 Respiratory rate 21 /min DRAWING TENDER-C Loan Dias DRAWING TENDER Work Phone: [facility] Work Phone: 01-21-2022 13:00-0400 SaO2% (BldA) [Mass fraction] 98 % DRAWING TENDER-C Loan Dias DRAWING TENDER Work Phone: [facility] Work Phone: 01-21-2022 10:47-0400 Body height 154.94 cm DRAWING TENDER-C Loan Dias DRAWING TENDER Work Phone: [facility] Work Phone: 01-21-2022 10:47-0400 Body mass index (BMI) [Ratio] 34.9 kg/m2 DRAWING TENDER-C Loan Dias DRAWING TENDER Work Phone: [facility] Work Phone: 01-21-2022 10:47-0400 Body temperature 97.6 [degF] DRAWING TENDER-C Loan Dias DRAWING TENDER Work Phone: [facility] Work Phone: 01-21-2022 10:47-0400 Body weight 83.91 kg DRAWING TENDER-C Loan Arun DRAWING TENDER Work Phone: [facility] Work Phone: 01-12-2022 08:25-0400 Body mass index (BMI) [Ratio] 36.2 kg/m2 DRAWING TENDER-C Loan Arun DRAWING TENDER Work Phone: [facility] Work Phone: 01-12-2022 08:25-0400 Body weight 87.08 kg DRAWING TENDER-C Loan Dias DRAWING TENDER Work Phone: [facility] Work Phone: 01-12-2022 08:25-0400 Diastolic blood pressure 86 mm[Hg] DRAWING TENDER-C Loan Arun DRAWING TENDER Work Phone: [facility] Work Phone: 01-12-2022 08:25-0400 Heart rate 98 /min DRAWING TENDER-C Loan Dias DRAWING TENDER Work Phone: [facility] Work Phone: 01-12-2022 08:25-0400 Respiratory rate 16 /min DRAWING TENDER-C Loan Dias DRAWING TENDER Work Phone: [facility] Work Phone: 01-12-2022 08:25-0400 SaO2% (BldA) [Mass fraction] 99 % DRAWING TENDER-C Loan Dias DRAWING TENDER Work Phone: [facility] Work Phone: 01-12-2022 08:25-0400 Systolic blood pressure 125 mm[Hg] DRAWING TENDER-C Loan Dias DRAWING TENDER Work Phone: [facility] Work Phone: 01-01-2022 16:02-0400 Body mass index (BMI) [Ratio] 36.4 kg/m2 DRAWING TENDER-C Loan Dias DRAWING TENDER Work Phone: [facility] Work Phone: 01-01-2022 16:02-0400 Body temperature 97.7 [degF] DRAWING TENDER-C Loan Dias DRAWING TENDER Work Phone: [facility] Work Phone: 01-01-2022 16:02-0400 Body weight 87.54 kg DRAWING TENDER-C Loan Dias DRAWING TENDER Work Phone: [facility] Work Phone: 01-01-2022 16:02-0400 Diastolic blood pressure 60 mm[Hg] DRAWING TENDER-C Loan Arun DRAWING TENDER Work Phone: [facility] Work Phone: 01-01-2022 16:02-0400 Heart rate 98 /min DRAWING TENDER-C Loan Dias DRAWING TENDER Work Phone: [facility] Work Phone: 01-01-2022 16:02-0400 Respiratory rate 18 /min DRAWING TENDER-C Loan Dias DRAWING TENDER Work Phone: [facility] Work Phone: 01-01-2022 16:02-0400 SaO2% (BldA) [Mass fraction] 97 % DRAWING TENDER-C Loan Dias DRAWING TENDER Work Phone: [facility] Work Phone: 01-01-2022 16:02-0400 Systolic blood pressure 130 mm[Hg] DRAWING TENDER-C Loan Dias DRAWING TENDER Work Phone: [facility] Work Phone: 12-01-2021 08:40-0400 Body mass index (BMI) [Ratio] 36.1 kg/m2 DRAWING TENDER-C Loan Dias DRAWING TENDER Work Phone: [facility] Work Phone: 12-01-2021 08:40-0400 Body temperature 97.6 [degF] DRAWING TENDER-C Loan Dias DRAWING TENDER Work Phone: [facility] Work Phone: 12-01-2021 08:40-0400 Body weight 86.74 kg DRAWING TENDER-C Loan Dias DRAWING TENDER Work Phone: [facility] Work Phone: 12-01-2021 08:40-0400 Diastolic blood pressure 88 mm[Hg] DRAWING TENDER-C [employer] Dias DRAWING TENDER Work Phone: [facility] Work Phone: 12-01-2021 08:40-0400 Heart rate 83 /min DRAWING TENDER-C [employer] Dias DRAWING TENDER Work Phone: [facility] Work Phone: 12-01-2021 08:40-0400 Respiratory rate 17 /min DRAWING TENDER-C Loan Dias DRAWING TENDER Work Phone: [facility] Work Phone: 12-01-2021 08:40-0400 SaO2% (BldA) [Mass fraction] 98 % DRAWING TENDER-C Loan Dias DRAWING TENDER Work Phone: [facility] Work Phone: 12-01-2021 08:40-0400 Systolic blood pressure 150 mm[Hg] DRAWING TENDER-C Loan Dias DRAWING TENDER Work Phone: [facility] Work Phone: 10-26-2021 08:23-0500 Body temperature 98.1 [degF] DRAWING TENDER-C Loan Dias DRAWING TENDER Work Phone: [facility] Work Phone: 10-26-2021 08:23-0500 Body weight 87.54 kg DRAWING TENDER-C Loan Dias DRAWING TENDER Work Phone: [facility] Work Phone: 10-26-2021 08:23-0500 Diastolic blood pressure 85 mm[Hg] DRAWING TENDER-C [employer] Dias DRAWING TENDER Work Phone: [facility] Work Phone: 10-26-2021 08:23-0500 Heart rate 95 /min DRAWING TENDER-C [employer] Dias DRAWING TENDER Work Phone: [facility] Work Phone: 10-26-2021 08:23-0500 Respiratory rate 14 /min DRAWING TENDER-C Loan Dias DRAWING TENDER Work Phone: [facility] Work Phone: 10-26-2021 08:23-0500 SaO2% (BldA) [Mass fraction] 99 % DRAWING TENDER-C Loan Dias DRAWING TENDER Work Phone: [facility] Work Phone: 10-26-2021 08:23-0500 Systolic blood pressure 140 mm[Hg] DRAWING TENDER-C Loan Dias DRAWING TENDER Work Phone: [facility] Work Phone: 10-18-2021 09:55-0500 Body mass index (BMI) [Ratio] 36.7 kg/m2 DRAWING TENDER-C [employer] Dias DRAWING TENDER Work Phone: [facility] Work Phone: 10-18-2021 09:55-0500 Body temperature 98.1 [degF] DRAWING TENDER-C Loan Dias DRAWING TENDER Work Phone: [facility] Work Phone: 10-18-2021 09:55-0500 Body weight 88.11 kg DRAWING TENDER-C Loan Dias DRAWING TENDER Work Phone: [facility] Work Phone: 10-18-2021 09:55-0500 Diastolic blood pressure 96 mm[Hg] DRAWING TENDER-C [employer] Dias DRAWING TENDER Work Phone: [facility] Work Phone: 10-18-2021 09:55-0500 Heart rate 80 /min DRAWING TENDER-C Loan Dias DRAWING TENDER Work Phone: [facility] [facility] Work Phone: 10-18-2021 09:55-0500 Respiratory rate 16 /min DRAWING TENDER-C Loan Dias DRAWING TENDER Work Phone: [facility] Work Phone: 10-18-2021 09:55-0500 SaO2% (BldA) [Mass fraction] 98 % DRAWING TENDER-C Loan Dias DRAWING TENDER Work Phone: [facility] Work Phone: 10-18-2021 09:55-0500 Systolic blood pressure 144 mm[Hg] DRAWING TENDER-C Loan Dias DRAWING TENDER Work Phone: [facility] Work Phone: 03-29-2021 13:14-0400 Diastolic blood pressure 91 mm[Hg] DRAWING TENDER-C Loan Dias DRAWING TENDER Work Phone: [facility] 03-29-2021 13:14-0400 Heart rate 82 /min DRAWING TENDER-C Loan Dias DRAWING TENDER Work Phone: [facility] 03-29-2021 13:14-0400 Respiratory rate 16 /min DRAWING TENDER-C Loan Dias DRAWING TENDER Work Phone: [facility] 03-29-2021 13:14-0400 SaO2% (BldA) [Mass fraction] 94 % DRAWING TENDER-C Loan Dias DRAWING TENDER Work Phone: [facility] 03-29-2021 13:14-0400 Systolic blood pressure 141 mm[Hg] DRAWING TENDER-C Loan Dias DRAWING TENDER Work Phone: [facility] 03-29-2021 10:04-0400 Body mass index (BMI) [Ratio] 35.1 kg/m2 DRAWING TENDER-C Loan Galloson DRAWING TENDER Work Phone: [facility] 03-29-2021 10:04-0400 Body weight 89.98 kg DRAWING TENDER-C Loan Galloson DRAWING TENDER Work Phone: [facility] 03-08-2021 13:07-0400 Body temperature 96.8 [degF] DRAWING TENDER-C Loan Dias DRAWING TENDER Work Phone: [phone] [place] [address] Encounters Encounter Date Encounter Type Care Provider Facility Start: 05-11-2025 ambulatory Loan Arun DRAWING TENDER Faci lity:[facility] Start: 04-24-2025 End: 04-24-2025 ambulatory Loan Dias DRAWING TENDER-C Work Phone: -[facility] Start: 04-24-2025 End: 04-24-[address] Nico Hook MD -[facility] Work Phone: Start: 04-08-2025 End: 04-08-2025 Patient encounter procedure Radha Tan DRAWING TENDER-C -[facility] Work Phone: Start: 04-08-2025 End: 04-08-2025 ambulatory Loan Arun DRAWING TENDER-C Work Phone: -[facility] Start: 04-07-2025 End: 04-07-2025 Patient encounter procedure Jarred Suh DPM Work Phone: [facility] Comment on above: Plantar fasciitis of right foot (Primary Dx); Equinus contracture of right ankle Start: 04-07-2025 End: 04-07-2025 ambulatory LOAN DIAS Facility:[facility] Start: 04-04-2025 End: 04-04-2025 Emergency department patient visit Loan Arun DRAWING TENDER-C Work Phone: -Emergency Department Work Phone: Start: 03-12-2025 End: 03-12-[address] Hossein Josue MD -[facility] Work Phone: Start: 03-12-2025 End: 03-12-2025 ambulatory Loan Dias DRAWING TENDER-C Work Phone: -[facility] Start: 03-10-2025 End: 03-10-[address] Raymond Lagos DO -[facility] Work Phone: Start: 03-10-2025 End: 03-10-2025 ambulatory Loan Dias DRAWING TENDER-C Work Phone: -[facility] Start: 03-10-2025 End: 03-10-2025 Patient encounter procedure Jarred Markos Angeli DPM Work Phone: [facility] Comment on above: Plantar fasciitis of right foot (Primary Dx); Pain in right foot Start: 03-10-2025 End: 03-10-2025 ambulatory LOAN L DIAS Facility[facility] Start: 03-08-2025 End: 03-08-2025 Telephone encounter Ag Orth Work Phone: [facility] Start: 03-06-2025 End: 03-06-2025 [facility] Start: 12-29-2024 End: 12-29-2024 ambulatory Francisco Gorman MD Work Phone: [facility] Comment on above: temporary stop on [place] Start: 12-18-2024 End: 12-18-2024 Telephone encounter Francisco Gorman MD Work Phone: [facility] Comment on above: Cardiac Clearance Start: 12-14-[address] Donell Escalante MD -[facility] Start: 12-14-2024 End: 12-14-2024 Patient encounter procedure Verónica Lopez DRAWING TENDER-C -[facility] Work Phone: Start: 12-14-2024 End: 12-14-2024 ambulatory Verónica Lopez DRAWING TENDER Facility:[facility] Start: 12-10-2024 End: 12-10-2024 ambulatory LOAN L DIAS [facility] Start: 12-09-2024 End: 12-09-2024 Nursing evaluation of patient and report Nurse Card Ag [facility] Work Phone: [facility] Comment on above: Implantable loop rec order present (Primary Dx) Start: 12-09-2024 End: 12-09-2024 ambulatory LOAN L DIAS Facility:[facility] Start: 11-25-2024 End: 11-25-2024 ambulatory LOAN L DIAS [facility] Start: 11-06-2024 End: 11-06-2024 Telephone encounter Francisco Gorman MD Work Phone: [facility] Comment on above: Preparations For Pro cedures Start: 11-04-2024 End: 11-04-2024 Patient encounter procedure Francisco Gorman MD Work Phone: [facility] Comment on above: Paroxysmal atrial fi brillation (HCC) (Primary Dx); Sinus bradycardia Start: 11-04-2024 End: 11-04-2024 ambulatory LOAN L DIAS Facility:[facility] Start: 11-03-2024 End: 11-03-2024 ambulatory Loan Dias DRAWING TENDER-C Work Phone: [facility] Work Phone: Start: 11-03-2024 End: 11-03-[address] Antonia Escalante MD -Outpatient [facility] Imaging Work Phone: Start: 11-03-2024 End: 11-03-2024 ambulatory Loan Dias DRAWING TENDER Facility:[facility] Start: 10-31-2024 End: 10-31-2024 ambulatory Loan Dias DRAWING TENDER-C Work Phone: [facility] Work Phone: Start: 10-31-2024 End: 10-31-[address] Antonia Escalante MD -Ultrasound, [facility] Work Phone: Start: 10-31-2024 End: 10-31-2024 ambulatory Lona Dias DRAWING TENDER Facility:[facility] Start: 10-29-2024 End: 10-29-2024 Patient encounter procedure [facility] Start: 10-28-2024 End: 10-28-2024 Patient encounter procedure Smith Lopez MD Work Phone: [facility] Comment on above: PFO (patent foramen ovale) (Primary Dx); Paroxysmal atrial fibrillation (HCC) Start: 10-28-2024 End: 10-28-2024 ambulatory LOAN DIAS Facility:[facility] Start: 10-27-2024 End: 10-27-[address] João Kong [facility] Work Phone: Start: 10-27-2024 End: 10-27-2024 ambulatory João Kong Facility:[facility] Start: 10-27-2024 End: 10-27-2024 ambulatory Loan Dias DRAWING TENDER-C Work Phone: [facility] Work Phone: Start: 10-27-2024 End: 10-27-[address] Mariajose Barclay MD -[facility] Work Phone: Start: 10-27-2024 End: 10-27-2024 ambulatory Loan Dias DRAWING TENDER Facility:[facility] Start: 10-26-2024 End: 10-26-2024 Telephone encounter Smith Lopez MD Work Phone: [facility] [place] Comment on above: International Accounting Manager - O ther Start: 10-01-2024 End: 10-02-2024 Telephone encounter Christy Luna APRN.SERVICE ORDER TAKER Work Phone: [facility] Start: 09-30-2024 End: 09-30-2024 Telephone encounter Vandana Goldstein APRN.SERVICE ORDER TAKER Work Phone: [facility] Comment on above: International Accounting Manager - O ther Appointment Start: 09-24-2024 End: 09-30-2024 Evaluation and management of inpatient FRANCISCO GORMAN Facility:[facility] Start: 09-23-2024 Emergency department patient visit LOAN DIAS Facility:[facility] Start: 09-22-2024 End: 09-22-2024 Emergency department patient visit RANDA MEEK Facility:[facility] Start: 09-22-2024 End: 09-23-2024 Telephone encounter Smith Lpoez MD Work Phone: [facility] Comment on above: Appointment; Care Co ordinator - Other Start: 09-22-2024 End: 09-22-2024 Emergency department patient visit LOAN Elijah GALLODIAS Facility:[facility] Start: 09-21-[address] Donell Escalante MD -[facility] Start: 09-21-2024 End: 09-21-2024 Patient encounter procedure Verónica Lopez DRAWING TENDER-[facility] Work Phone: Start: 09-21-2024 End: 09-21-2024 ambulatory Verónica Lopez DRAWING TENDER Facility:[facility] Start: 09-10-2024 End: 09-10-2024 Orders Only Vandana Goldstein APRN.SERVICE ORDER TAKER Work Phone: [facility] Comment on above: PFO (patent foramen ovale) [Q21.12] Start: 09-08-2024 End: 09-08-2024 ambulatory LOAN DIAS [facility] Start: 08-31-2024 End: 08-31-[address] Raymond Lagos DO -[facility] Work Phone: Start: 08-31-2024 End: 08-31-2024 ambulatory Loan Dias DRAWING TENDER Facility:[facility] Start: 08-17-2024 End: 09-03-2024 Telephone encounter Kishan Piedra MD Work Phone: [facility] Comment on above: Patient Question Start: 08-05-2024 End: 08-05-2024 ambulatory LOAN Elijah GALLODIAS Facility[facility] Start: 07-28-2024 End: 07-28-2024 Telephone encounter Ag Card Work Phone: [facility] Comment on above: Preparations For Pro cedures Start: 07-27-2024 End: 07-27-2024 Patient encounter procedure Ling Harding APRN.SERVICE ORDER TAKER Work Phone: NEUROLOGY Comment on above: 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); PFO (patent foramen ovale); Essential hypertension; Mixed hyperlipidemia Start: 07-27-2024 End: 07-27-2024 ambulatory LOAN L DIAS Facility[facility] Start: 07-23-2024 End: 07-23-2024 Orders Only Vandana Goldstein APRN.SERVICE ORDER TAKER Work Phone: [facility] Comment on above: PFO (patent foramen ovale) (Primary Dx) Start: 07-22-2024 End: 07-26-2024 Telephone encounter Cecily Guerrero MD Work Phone: [facility] Comment on above: Patient Question Start: 07-20-2024 End: 07-20-2024 ambulatory LOAN L DIAS Facility:[facility] Start: 07-15-2024 End: 07-15-2024 Patient encounter procedure [facility] Start: 07-08-2024 End: 07-08-2024 Telephone encounter Marleny Reyez MD Work Phone: [place] [facility] Comment on above: Modified [place] [facility] Start: 07-03-2024 End: 07-03-2024 ambulatory Dia Robotham Facility:[facility] Start: 06-30-2024 End: 06-30-2024 Patient encounter procedure [facility] Start: 06-30-2024 End: 06-30-2024 Telephone encounter Smith Lopez MD Work Phone: [facility] Comment on above: Cardiac Clearance Start: 06-26-2024 End: 06-26-2024 Telephone encounter Ag Card Work Phone: [facility] Comment on above: Preparations For Pro cedures Start: 06-24-2024 End: 06-24-2024 Patient encounter procedure Smith Lopez MD Work Phone: [facility] Comment on above: PFO (patent foramen ovale) (Primary Dx) Start: 06-24-2024 End: 06-24-2024 ambulatory LOAN L DIAS [facility] Start: 06-19-2024 End: 06-19-2024 ambulatory Verónica Lopez NP Facility:[facility] Start: 06-17-2024 End: 06-17-2024 ambulatory Loan Dias DRAWING TENDER Facility:[facility] Start: 06-10-2024 End: 06-10-2024 Telephone encounter Lorna Grant [facility] CARDIA C TESTING Start: 06-09-2024 End: 06-09-2024 Patient encounter procedure Ling Glen ARREOLASERVICE ORDER TAKER Work Phone: Cerebrovascular Comment on above: 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 Start: 05-08-2024 End: 05-08-2024 ambulatory Loan Dias DRAWING TENDER Facility:[facility] Start: 04-29-2024 End: 04-29-2024 Telephone encounter Marleny Reyez MD Work Phone: [place] [facility] Comment on above: [facility] Start: 04-19-2024 End: 04-23-2024 Evaluation and management of inpatient YOKASTA ALVES Facility:[facility] Start: 04-19-2024 End: 04-19-2024 Admission to same day surgery center Cruz Wilkins MD Work Phone: Neurosurgery Comment on above: 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) (Primary Dx) Start: 04-19-2024 End: 04-19-2024 Telemedicine consultation with patient Cruz Wilkins MD Work Phone: Neurosurgery Start: 12-21-2023 End: 12-21-2023 Emergency department patient visit DRAWING TENDER-Jennifer Dias DRAWING TENDER Work Phone: [facility]-Emergency Department Work Phone: Start: 12-16-2023 End: 12-16-2023 Patient encounter procedure DRAWING TENDEROh Dias DRAWING TENDER Work Phone: [facility] Work Phone: Start: 12-12-2023 End: 12-12-2023 Emergency department patient visit DRAWING TENDER-Jennifer Dias DRAWING TENDER Work Phone: [facility]-Emergency Department Work Phone: Start: 12-03-2023 Non-patient / Non-visit DRAWING TENDER-Jennifer Dias DRAWING TENDER Work Phone: [facility] Start: 12-03-2023 End: 12-03-2023 Admission to same day surgery center DRAWING TENDER-Jennifer Disa DRAWING TENDER Work Phone: [facility]-Surgical Day Care Start: 12-03-2023 End: 12-03-2023 ambulatory DRAWING TENDER-C Loan Dias DRAWING TENDER Work Phone: [facility] Work Phone: Start: 11-06-2023 End: 11-06-2023 Patient encounter procedure DRAWING TENDER-Jennifer Dias DRAWING TENDER Work Phone: [facility] Work Phone: Start: 11-04-2023 End: 11-04-2023 ambulatory DRAWING TENDER-Jennifer Dias DRAWING TENDER Work Phone: [facility] Work Phone: Start: 11-04-2023 End: 11-04-2023 Patient encounter procedure DRAWING TENDER-Jennifer Dias DRAWING TENDER Work Phone: [facility]-Outpatient Breast Imaging Work Phone: Start: 11-04-2023 End: 11-04-2023 Patient encounter procedure DRAWING TENDER-Jennifer Dias DRAWING TENDER Work Phone: [facility] Work Phone: Start: 11-04-2023 End: 11-04-2023 Patient encounter procedure DRAWING TENDER-Jennifer Dias DRAWING TENDER Work Phone: [facility] Work Phone: Start: 10-09-2023 End: 10-09-2023 Patient encounter procedure DRAWING TENDER-Jennifer Dias DRAWING TENDER Work Phone: [facility] Work Phone: Start: 09-25-2023 End: 09-25-2023 Patient encounter procedure DRAWING TENDER-C Loan Dias DRAWING TENDER Work Phone: [facility] Work Phone: Start: 09-23-2023 Registered Recurring DRAWING TENDER-C Loan Dias DRAWING TENDER Work Phone: [facility] Start: 09-23-2023 End: 09-23-2023 Patient encounter procedure DRAWING TENDER-C Loan Dias DRAWING TENDER Work Phone: [facility] Work Phone: Start: 09-20-2023 End: 09-20-2023 ambulatory DRAWING TENDER-C Loan Dias DRAWING TENDER Work Phone: [facility] Work Phone: Start: 09-20-2023 End: 09-20-2023 Patient encounter procedure DRAWING TENDER-C Loan Dias DRAWING TENDER Work Phone: [facility] Work Phone: Start: 09-09-2023 End: 09-09-2023 Patient encounter procedure DRAWING TENDER-C Loan Dias DRAWING TENDER Work Phone: [facility] Work Phone: Start: 08-26-2023 End: 08-26-2023 ambulatory DRAWING TENDER-C Loan Dias DRAWING TENDER Work Phone: [facility] Work Phone: Start: 08-26-2023 End: 08-26-2023 Patient encounter procedure DRAWING TENDER-C Loan Dias DRAWING TENDER Work Phone: [facility]-Laboratory Work Phone: Start: 08-06-2023 End: 08-06-2023 Patient encounter procedure DRAWING TENDER-C Loan Dias DRAWING TENDER Work Phone: [facility] Work Phone: Start: 07-29-2023 End: 07-29-2023 ambulatory DRAWING TENDER-C Loan Dias DRAWING TENDER Work Phone: [facility] Work Phone: Start: 07-29-2023 End: 07-29-2023 Patient encounter procedure DRAWING TENDER-C Loan Dias DRAWING TENDER Work Phone: [facility]-Laboratory, Specimen Work Phone: Start: 05-27-2023 End: 05-27-2023 Patient encounter procedure DRAWING TENDER-C Loan Dias DRAWING TENDER Work Phone: [facility] Work Phone: Start: 05-15-2023 End: 05-15-2023 Patient encounter procedure DRAWING TENDER-C Loan Dias DRAWING TENDER Work Phone: [facility] Work Phone: Start: 05-06-2023 End: 05-06-2023 Patient encounter procedure DRAWING TENDER-C Loan Dias DRAWING TENDER Work Phone: [facility] Work Phone: Start: 03-14-2023 End: 03-14-2023 ambulatory DRAWING TENDER-C Loan Dias DRAWING TENDER Work Phone: [facility] Work Phone: Start: 03-14-2023 End: 03-14-2023 Patient encounter procedure DRAWING TENDER-C Loan Dias DRAWING TENDER Work Phone: [facility] Work Phone: Start: 03-06-2023 End: 03-06-2023 Patient encounter procedure DRAWING TENDER-C Loan Dias DRAWING TENDER Work Phone: [facility] Work Phone: Start: 03-06-2023 End: 03-06-2023 Patient encounter procedure DRAWING TENDER-C Loan Dias DRAWING TENDER Work Phone: [facility] Work Phone: Start: 02-28-2023 End: 02-28-2023 Patient encounter procedure DRAWING TENDER-Jennifer Dias DRAWING TENDER Work Phone: [facility] Work Phone: Start: 02-26-2023 End: 02-26-2023 ambulatory DRAWING TENDER-C Loan Dias DRAWING TENDER Work Phone: [facility] Work Phone: Start: 02-26-2023 End: 02-26-2023 Patient encounter procedure DRAWING TENDER-Jennifer Dias DRAWING TENDER Work Phone: [facility]-Outpatient Breast Imaging Work Phone: Start: 02-20-2023 End: 02-20-2023 Patient encounter procedure DRAWING TENDER-Jennifer Dias DRAWING TENDER Work Phone: [facility] Work Phone: Start: 01-28-2023 End: 01-28-2023 Patient encounter procedure DRAWING TENDER-Jennifer Dias DRAWING TENDER Work Phone: [facility] Work Phone: Start: 01-15-2023 Non-patient / Non-visit DRAWING TENDER-C Tereza Dias DRAWING TENDER Work Phone: [facility] Start: 01-15-2023 End: 01-15-2023 ambulatory DRAWING TENDER-C Loan Dias DRAWING TENDER Work Phone: [facility] Work Phone: Start: 01-15-2023 End: 01-15-2023 Patient encounter procedure DRAWING TENDER-Jennifer Dias DRAWING TENDER Work Phone: [facility]-Cardiovascular Services Start: 12-28-2022 End: 12-28-2022 Patient encounter procedure DRAWING TENDER-Jennifer Dias DRAWING TENDER Work Phone: [facility] Start: 12-04-2022 Non-patient / Non-visit DRAWING TENDER-C Tereza Dias DRAWING TENDER Work Phone: [facility] Start: 11-05-2022 Registered Recurring DRAWING TENDER-Jennifer Dias DRAWING TENDER Work Phone: [facility] Oncology Start: 11-05-2022 End: 11-05-2022 Patient encounter procedure DRAWING TENDER-Jennifer Dias DRAWING TENDER Work Phone: [facility] Cancer Care Start: 11-01-2022 End: 11-01-2022 Patient encounter procedure DRAWING TENDER-Jennifer Dias DRAWING TENDER Work Phone: [facility] Care Start: 10-31-2022 End: 10-31-2022 ambulatory DRAWING TENDER-Jennifer Dias DRAWING TENDER Work Phone: [facility] Work Phone: Start: 10-31-2022 End: 10-31-2022 Patient encounter procedure DRAWING TENDER-Jennifer Dias DRAWING TENDER Work Phone: [facility]-Outpatient Breast Imaging Start: 07-25-2022 End: 07-25-2022 Patient encounter procedure DRAWING TENDER-Jennifer Dias DRAWING TENDER Work Phone: [facility] Care Start: 05-21-2022 Non-patient / Non-visit DRAWING TENDER-C Tereza Dias DRAWING TENDER Work Phone: [facility] Start: 05-21-2022 End: 05-21-2022 Admission to same day surgery center DRAWING TENDER-Jennifer Dias DRAWING TENDER Work Phone: [facility]-Endoscopy Start: 05-21-2022 End: 05-21-2022 ambulatory DRAWING TENDER-C Loan Dias DRAWING TENDER Work Phone: [facility] Work Phone: Start: 04-26-2022 Non-patient / Non-visit DRAWING TENDER-C Tereza Dias DRAWING TENDER Work Phone: [facility] Start: 04-25-2022 Non-patient / Non-visit DRAWING TENDER-Jennifer Dias DRAWING TENDER Work Phone: [facility] Start: 04-25-2022 Registered Recurring DRAWING TENDER-Jennifer Dias DRAWING TENDER Work Phone: [facility] Oncology Start: 04-25-2022 End: 04-25-2022 Patient encounter procedure DRAWING TENDER-Jennifer Dias DRAWING TENDER Work Phone: [facility] Start: 02-16-2022 End: 02-16-2022 Patient encounter procedure DRAWING TENDER-Jennifer Dias DRAWING TENDER Work Phone: [facility] Start: 02-05-2022 End: 02-05-2022 Patient encounter procedure DRAWING TENDER-Jennifer Dias DRAWING TENDER Work Phone: [facility] Start: 01-29-2022 End: 01-29-2022 Patient encounter procedure DRAWING TENDER-Jennifer Dias DRAWING TENDER Work Phone: [facility] Start: 01-24-2022 End: 01-24-2022 Patient encounter procedure DRAWING TENDER-Jennifer Dias DRAWING TENDER Work Phone: [facility] Start: 01-21-2022 End: 01-21-2022 Emergency department patient visit DRAWING TENDER-Jennifer Dias DRAWING TENDER Work Phone: [facility]-Emergency Department Start: 01-12-2022 End: 01-12-2022 Patient encounter procedure DRAWING TENDER-Jennifer Dias DRAWING TENDER Work Phone: [facility] Start: 01-02-2022 End: 01-02-2022 Patient encounter procedure DRAWING TENDER-Jennifer Dias DRAWING TENDER Work Phone: [facility] Start: 12-01-2021 End: 12-01-2021 Patient encounter procedure DRAWING TENDER-C Loan Galloson DRAWING TENDER Work Phone: [facility] Start: 10-26-2021 End: 10-26-2021 Patient encounter procedure DRAWING TENDER-C Loan Galloson DRAWING TENDER Work Phone: [facility] Start: 10-26-2021 End: 10-26-2021 Patient encounter procedure DRAWING TENDER-C Loanaruna GalloDias DRAWING TENDER Work Phone: [facility]-Outpatient Breast Imaging Start: 10-18-2021 Registered Recurring DRAWING TENDER-C Loanaruna GalloDias DRAWING TENDER Work Phone: [facility] Oncology Start: 10-18-2021 End: 10-18-2021 Patient encounter procedure DRAWING TENDER-C Loan Galloson DRAWING TENDER Work Phone: [facility] Start: 07-31-2021 Patient encounter status DRAWING TENDER-C Loanaruna GalloDias DRAWING TENDER Work Phone: [facility] Start: 05-03-2018 End: 05-03-2018 Patient encounter INGOMAR (PT) [facility] Start: 04-24-2018 End: 04-24-2018 Patient encounter INGOMAR (PT) [facility] Start: 03-19-2018 End: 03-21-2018 Patient encounter [facility] Start: 10-24-2017 Patient encounter [facility] Start: 10-11-2017 Patient encounter [facility] Procedures Date Procedure Procedure Detail Performing Clinician Start: 04-07-2025 Injection 1 tendon sheath/ligament aponeurosis Jarred GARCIAM Work Phone: Start: 04-04-2025 Plain chest X-ray Loan Dias DRAWING TENDER-C Work Phone: Start: 04-04-2025 Estimated creatinine clearance Loan Arun DRAWING TENDER-C Work Phone: Start: 12-14-2024 Estimated creatinine clearance Loan Dias DRAWING TENDER-C Work Phone: Start: 11-03-2024 Dual energy X-ray absorptiometry Loan Dias DRAWING TENDER-C Work Phone: Start: 11-03-2024 Screening mammography D kae Dias DRAWING TENDER-C Work Phone: Start: 10-31-2024 Ultrasonography of abdomen Loan Dias DRAWING TENDER-C Work Phone: Start: 10-27-2024 MRI of lumbar spine Cirilo Dias DRAWING TENDER-C Work Phone: Start: 09-22-2024 Electrocardiogram LOAN DIAS Start: 09-21-2024 Measurement of renal function Loan Dias DRAWING TENDER-C Work Phone: Comment on above: GFR Calc Start: 09-10-2024 Echo tthrc r-t 2d w/wom-mode compl spec&colr d Vandana Goldstein ARTIST BLACKSMITH.SERVICE ORDER TAKER Work Phone: Start: 09-10-2024 Echocardiography LOAN R SHARIFON Start: 09-10-2024 LVEF ECHO Vandana Goldstein ARTIST BLACKSMITH.SERVICE ORDER TAKER Work Phone: Start: 09-10-2024 Radiologic exam ches t single view Vandana Goldstein ARTIST BLACKSMITH.SERVICE ORDER TAKER Work Phone: Start: 09-10-2024 Coagulation time activated Smith Lopez MD Work Phone: Start: 08-31-2024 X-ray of knee, four or more views Loanaruna GalloDias DRAWING TENDER-C Work Phone: Start: 04-20-2024 Lipid 1996 panel - S wesley or Plasma Marleny Reyez MD Work Phone: Start: 04-19-2024 Electrocardiogram LOANAruna GALLODIAS Start: 12-12-2023 SARS-CoV-2, Influenz a & RSV (PCR) DRAWING TENDER-C Loanaruna GalloDias DRAWING TENDER Work Phone: Start: 12-12-2023 Plain chest X-ray DRAWING TENDER-C Loan Arun DRAWING TENDER Work Phone: Start: 12-03-2023 Arthroscopy of knee DRAWING TENDER- C Loan Dias DRAWING TENDER Work Phone: Start: 11-04-2023 Screening mammography N P-C Loan Dias DRAWING TENDER Work Phone: Start: 09-20-2023 MRI of joint of lowe r extremity DRAWING TENDER-C Loan Dias DRAWING TENDER Work Phone: Start: 09-09-2023 Radiologic examinati on of knee DRAWING TENDER-C Loan Dias DRAWING TENDER Work Phone: Start: 05-15-2023 Radiologic examinati on of knee DRAWING TENDER-C Loan Dias DRAWING TENDER Work Phone: Start: 03-14-2023 MRI of bilateral shyla asts with contrast DRAWING TENDER-C Loan Dias DRAWING TENDER Work Phone: Start: 03-06-2023 Radiologic examinati on of knee DRAWING TENDER-C Loan Dias DRAWING TENDER Work Phone: Start: 02-26-2023 Mammography DRAWING TENDER-C Loan Dias DRAWING TENDER Work Phone: Start: 02-26-2023 Ultrasonography of breast DRAWING TENDER-C Loan Dias DRAWING TENDER Work Phone: Start: 10-31-2022 Dual energy X-ray absorptiometry DRAWING TENDER-C Loan Dias DRAWING TENDER Work Phone: Start: 10-31-2022 Screening mammography N P-C Loan Dias DRAWING TENDER Work Phone: Start: 05-21-2022 Colonoscopy DRAWING TENDER-C Loan Dias DRAWING TENDER Work Phone: Start: 01-21-2022 Plain chest X-ray DRAWING TENDER-C Loan Dias DRAWING TENDER Work Phone: Start: 01-21-2022 CT of head without contrast DRAWING TENDER-C Loan Dias DRAWING TENDER Work Phone: Start: 01-02-2022 Radiologic examinati on of knee DRAWING TENDER-C Loan Glaloson DRAWING TENDER Work Phone: Start: 10-26-2021 CT of thorax with contrast DRAWING TENDER-C Loan Dias DRAWING TENDER Work Phone: Start: 10-26-2021 Screening mammography N P-C Loan Dias DRAWING TENDER Work Phone: Start: 01-25-2021 Trichomonas screening test Loan Dias DRAWING TENDER-C Work Phone: Start: 03-20-2018 Lipid 1996 panel - S wesley or Plasma Cruz Wilkins MD Work Phone: History of operative procedure on knee S/P arthroscopic surgery of left knee DRAWING TENDER-C Loan Dias DRAWING TENDER Work Phone: Plan of Treatment Date Care Activity Detail Author Start: 09-26-2029 Urine microalbumin profile DTaP,Tdap,Td Vaccine (3 - Td or Tdap) [facility] Start: 04-20-2029 Lipid panel Lipid Screening [facility] Start: 09-30-2027 Diabetes Screening Diabetes Screening [facility] Start: 09-22-2027 Diabetes Screening Diabetes Screening [facility] Start: 09-08-2027 Diabetes Screening Diabetes Screening [facility] Start: 04-23-2027 Diabetes Screening Diabetes Screening [facility] Start: 04-19-2027 Diabetes Screening Diabetes Screening [facility] Start: 12-10-2025 End: 12-10-2025 Patient encounter procedure 12/10/2025 10:00 AM EDT Office Visit [facility] [address] [place] [address] Francisco Gorman MD [address] [place] [address] 1 year follow up [facility] Comment on above: 1 year follow up Start: 07-27-2025 BP Controlled (<130/80) BP Controlled (<130/80) [facility] Start: 05-12-2025 End: 05-12-2025 Patient encounter procedure 05/12/2025 9:45 AM EDT Office Visit [facility] [address] [place], [place] [id number] Jarred Suh DPM [address] [place] [address] Follow up Right foot [facility] Comment on above: Follow up Right foot Start: 04-30-2025 End: 04-30-2025 Patient encounter procedure 04/30/2025 9:00 AM EDT Office Visit [facility] [address] [place] [address] Smith Lopez MD [address] [place] [address] Return in about 6 months. kh [facility] Comment on above: Return in about 6 months. Start: 04-19-2025 Influenza vaccination [facility] Start: 04-07-2025 End: 04-07-2025 Patient encounter procedure 04/07/2025 9:45 AM EDT Office Visit [facility] [address] [place] [address] Jarred Suh DPM [address] [place] [address] Follow up Right foot [facility] Comment on above: Follow up Right foot Start: 04-04-2025 [facility] Start: 04-04-2025 Plain chest X-ray Chest 1 View (Portable) [facility] Start: 04-04-2025 XR Chest Single view [facility] Start: 04-04-2025 End: 04-04-2025 [facility] Start: 03-12-2025 Evaluation of diagnostic study results [facility] Start: 03-10-2025 End: 03-10-2025 Patient encounter procedure 03/10/2025 9:15 AM EDT Office Visit [facility] [address] [place] [address] Jarred Suh DPM [address] [place] [address] R foot/poss plantar fasciitis [facility] Comment on above: R foot/poss plantar fasciitis Start: 02-01-2025 End: 02-01-2025 Patient encounter procedure 02/01/2025 9:30 AM EDT Office Visit NEUROLOGY [address] [place] [address] Ling Harding APRN.SERVICE ORDER TAKER [address] [place] [address] 6 month follow up NEUROLOGY Comment on above: 6 month follow up Start: 12-29-2024 End: 12-29-2024 Patient encounter procedure 12/29/2024 8:00 AM EDT Procedure [facility] [address] [place] [address] loop/sv/mdt/naif [facility] Comment on above: loop/sv/mdt/naif Start: 12-25-2024 End: 12-25-2024 Patient encounter procedure 12/25/2024 8:00 AM EDT Procedure [facility] [address] [place] [address] loop/sv/mdt/naif [facility] Comment on above: loop/sv/mdt/naif Start: 12-23-2024 End: 12-23-2024 Patient encounter procedure 12/23/2024 8:20 AM EDT Office Visit [facility] [address] [place] [address] Smith Lopez MD [address] [place] [address] Return in about 6 months (around 12/22/2024). [facility] Comment on above: Return in about 6 months (around ). Start: 12-07-2024 End: 12-07-2024 Patient encounter procedure 12/07/2024 10:00 AM EDT Office Visit [facility] [address] [place] [address] Francisco Gorman MD [address] [place] [id number] Hospital follow up; monitor results [facility] Comment on above: Hospital follow up; monitor results Start: 11-25-2024 End: 11-25-2024 Admission to same day surgery center 11/25/2024 8:00 AM EDT - 11/25/2024 9:40 AM EDT [facility] [address] [place] [address] Francisco Gorman MD [address] [place] [phone] (Fax) INSERTION SUBCUTANEIOUS CARDIAC RHYTHM MONITOR,INCL PROGRAMMNG [facility] [...] EDT Hospital Encounter [facility] [address] [place] [address] Francisco Gorman MD [address] [place] [phone] (Fax) Paroxysmal atrial fibrillation (HCC) [I48.0], Sinus bradycardia [R00.1] [facility] Comment on above: Paroxysmal atrial fibrillation (HCC) [I4 8.0], Sinus bradycardia [R00.1] Start: 11-04-2024 End: 11-04-2024 Patient encounter procedure 11/04/2024 2:40 PM EDT Office Visit [facility] [address] [place], [place] [id number] Francisco Gorman MD [address] [place] [phone] (Fax) Discuss montior results/PPM Implant [facility] Comment on above: Discuss montior results/PPM Implant Start: 10-28-2024 End: 10-28-2024 Patient encounter procedure [facility] Comment on above: 1mo PFO Closure follow up 1mo PFO Closure foll ow up/srs Start: 09-10-2024 End: 09-10-2024 Admission to same day surgery center 09/10/2024 12:00 PM EST - 09/10/2024 2:00 PM EST Surgery [facility] [address] [place] [address] Smith Lopez MD [address] [place] [address] PERCUTANEOUS TRANSCATHETER 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 [facility] Comment on above: PERCUTANEOUS TRANSCATHETER CLOSURE OF CO NGENITAL INTERATRIAL COMMUNICATION W/O IMPLANT Start: 09-10-2024 Subsequent hospital visit by physician 09/10/2024 12:00 PM EST Hospital Encounter [facility] [address] [place] [address] Smith Lopez MD [address] [place] [address] PFO (patent foramen ovale) [Q21.12] [facility] Comment on above: PFO (patent foramen ovale) [Q21.12] Start: 09-10-2024 End: 09-10-2024 Intracard echocard w/ther/dx ivntj incl img s&i [facility] Start: 09-10-2024 End: 09-10-2024 Prq tcat clsr cgen intratrl comunicaj w/implt [facility] Start: 08-19-2024 Advance Directive Discussion Advance Directive Discussion [facility] Start: 08-19-2024 Medicare Advantage Annual Wellness Visit Medicare Advantage Annual Wellness Visit [facility] Start: 08-05-2024 End: 08-05-2024 Admission to same day surgery center 08/05/2024 9:50 AM EST - 08/05/2024 10:55 AM EST [facility] [address] [place] [address] Kishan Piedra MD [address] [place] [address] ECHOCARDIOGRAM TRANSESOPHOGEAL, REAL TIME W/IMAGE DOCUMENT (2D) [...] Office Visit NEUROLOGY [address] [id number] Ling Harding APRN.SERVICE ORDER TAKER [address] [place] [address] 6 week follow up NEUROLOGY Comment on above: 6 week follow up Start: 07-20-2024 End: 07-20-2024 Admission to same day surgery center 07/20/2024 8:30 AM EST - 07/20/2024 9:30 AM EST Surgery [facility] [address] [place] [address] Cecily Guerrero MD [address] [place] [address] (Fax) ECHOCARDIOGRAM TRANSESOPHOGEAL [facility] Comment on above: ECHOCARDIOGRAM TRANSESOPHOGEAL Start: 07-20-2024 End: 07-20-2024 Echo transesophag montr cardiac pump functj ECHOCARDIOGRAM TRANSESOPHOGEAL PFO (patent foramen ovale) 07/20/2024 8:30 AM EST [facility] Start: 07-20-2024 Subsequent hospital visit by physician 07/20/2024 8:30 AM EST Hospital Encounter [facility] [address] [place] [address] Cecily Guerrero MD [address] [place] [address] PFO (patent foramen ovale) [Q21.12] [facility] Comment on above: PFO (patent foramen ovale) [Q21.12] Start: 06-24-2024 End: 06-24-2024 Patient encounter procedure [facility] Comment on above: PFO PFO /sab Start: 06-09-2024 End: 06-09-2024 Patient encounter procedure 06/09/2024 1:30 PM EDT Office Visit [facility] [address] [place] [address] Ling Harding APRN.SERVICE ORDER TAKER [address] [place] [address] Order [id number] [facility] Comment on above: Order [id number] Start: 04-19-2024 Covid-19 Vaccine ( season) Covid-19 Vaccine ( season) [facility] Start: 04-19-2024 Covid-19 Vaccine ( season) Covid-19 Vaccine ( season) [facility] Start: 04-19-2024 Influenza vaccination Influenza Vaccine (#1) [facility] Start: 12-12-2023 [facility] Start: 12-12-2023 End: 12-12-2023 [facility] Start: 12-03-2023 Anes open/surg arthroscopic proc knee joint nos ANESTH KNEE JOINT SURGERY [facility] Start: 12-03-2023 Arthrs knee w/meniscectomy med&lat w/shaving KNEE ARTHROSCOPY/SURGERY [facility] Start: 12-03-2023 Patient discharge [facility] Start: 12-03-2023 Application of ice collar, cap or bag [facility] Start: 12-03-2023 Catheterization of vein [facility] Start: 12-03-2023 Elevation of affected extremity [facility] Start: 12-03-2023 Following clinical pathway protocol [facility] Start: 12-03-2023 Procedure discontinued [facility] Start: 12-03-2023 Provision of mobility device [facility] Start: 12-03-2023 Taking patient vital signs [facility] Start: 12-03-2023 Vital signs measurements [facility] Start: 12-03-2023 End: 12-03-2023 [facility] Start: 12-03-2023 Medication education [facility] Start: 08-19-2023 Advance Directive Discussion Advance Directive Discussion [facility] Start: 03-20-2023 Lipid panel Lipid Screening [facility] Start: 10-31-2022 Dual energy X-ray absorptiometry Dexa Bone Density Study [facility] Start: 10-31-2022 DXA Bone [Mass/Area] Bone density [facility] Start: 05-21-2022 Patient discharge [facility] Work Phone: Start: 01-24-2022 Patient referral [facility] Work Phone: Start: 01-21-2022 [facility] Work Phone: Start: 01-01-2022 Patient referral [facility] Work Phone: Start: 05-30-2021 Screening for malignant neoplasm of breast Mammogram Screening [facility] Start: 11-16-2020 Venous catheter care management [facility] Start: 09-09-2020 [facility] Start: 06-13-2020 [facility] Start: 2019 Pneumococcal Vaccine: 65+ (1 of 1 - PCV) Pneumococcal Vaccine: 65+ (1 of 1 - PCV) [facility] Start: 2019 Screening for osteoporosis Bone Density Screening [facility] Start: 2014 RSV Vaccine (1 - 1-dose 60+ series) RSV Vaccine (1 - 1-dose 60+ series) [facility] Start: 2014 RSV Vaccine (1 - Risk 60-74 years 1-dose series) RSV Vaccine (1 - Risk 60-74 years 1-dose series) [facility] Start: 2004 Pneumococcal Vaccine: 50+ (1 of 1 - PCV) Pneumococcal Vaccine: 50+ (1 of 1 - PCV) [facility] Start: 2004 Shingrix Vaccine (1 of 2) Shingrix Vaccine (1 of 2) [facility] Start: 1999 Screening for malignant neoplasm of colon [facility] Start: 1973 Pneumococcal Vaccine: 50+ (1 of 2 - PCV) Pneumococcal Vaccine: 50+ (1 of 2 - PCV) [facility] Start: 1973 Shingrix Vaccine (1 of 2) Shingrix Vaccine (1 of 2) [facility] Start: 1972 Annual PCP Team Chronic Disease Visit Annual PCP Team Chronic Disease Visit [facility] Start: 1972 BP Controlled (<130/80) BP Controlled (<130/80) [facility] Start: 1972 Depression Screening Depression Screening [facility] Start: 1972 Hepatitis C screening Hepatitis C Screening [facility] CBC W Auto Different ial panel - Blood [facility] Colonoscopy [facility] Work Phone: Comprehensive metabo lic 2000 panel - Serum or Plasma [facility] ECG B/O W INTERP (ME D OFFICE) ECG B/O W INTERP (MED OFFICE) ECG Routine PFO (patent foramen ovale) Ordered: 06/24/2024 [facility] Work Phone: Comment on above: Ordered: 06/24/2024 ECG B/O W INTERP (ME D OFFICE) ECG B/O W INTERP (MED OFFICE) ECG Routine Ordered: 11/04/2024 [facility] Work Phone: Comment on above: Ordered: 11/04/2024 Echo transesophag r- t 2d w/prb img acquisj i&r ECHOCARDIOGRAM TRANSESOPHOGEAL, REAL TIME W/IMAGE DOCUMENT (2D) PFO (patent foramen ovale) [facility] End: 06-24-2025 ECHO TRANSESOPHAGEAL ECHO TRANSESOPHAGEAL Cardiology Routine PFO (patent foramen ovale) 1 Occurrences starting 06/24/2024 until 06/24/2025 [facility] Comment on above: 1 Occurrences starting 06/24/2024 until 06/24/2025 End: 07-23-2025 ECHO TRANSESOPHAGEAL ECHO TRANSESOPHAGEAL Cardiology Routine PFO (patent foramen ovale) 1 Occurrences starting 07/23/2024 until 07/23/2025 [facility] Work Phone: Comment on above: 1 Occurrences starting 07/23/2024 until 07/23/2025 End: 07-26-2025 ECHO TRANSESOPHAGEAL ECHO TRANSESOPHAGEAL Cardiology Routine PFO (patent foramen ovale) 1 Occurrences starting 07/26/2024 until 07/26/2025 [facility] Work Phone: Comment on above: 1 Occurrences starting 07/26/2024 until 07/26/2025 End: 09-10-2024 ELECTROPHYSIOLOGY US ELECTROPHYSIOLOGY US BIC Routine One Time for 1 Occurrences starting 09/10/2024 until 09/10/2024 [facility] Work Phone: Comment on above: One Time for 1 Occurrences starting 08/20 until 09/10/2024 Insertion subq cardi ac rhythm monitor w/prgrmg INSERTION SUBCUTANEIOUS CARDIAC RHYTHM MONITOR,INCL PROGRAMMNG Paroxysmal atrial fibrillation (HCC) Sinus bradycardia [facility] Breast - bilatera l Diagnostic [facility] MG Breast - bilatera l Screening [facility] Patient Education [facility] Work Phone: Patient referral [facility] Work Phone: End: 09-10-2024 RIGHT HEART CATHETERIZATION RIGHT HEART CATHETERIZATION BIC Routine One Time for 1 Occurrences starting 09/10/2024 until 09/10/2024 [facility] Comment on above: One Time for 1 Occurrences starting 08/20 until 09/10/2024 [facility] Immunizations Immunization Date Immunization Notes Care Provider Tasha burton 08-27-2021 COVID-19 original vaccine, age 12+ yr, monovalent ([employer] - PURPLE TOP) Cruz Wilkins MD Work Phone: [facility] 06-19-2021 influenza, injectabl e, quadrivalent, preservative free DRAWING TENDER-C Loan Dias DRAWING TENDER Work Phone: [facility] 06-19-2021 influenza, seasonal, injectable DRAWING TENDER-C Loan Dias DRAWING TENDER Work Phone: [facility] 06-19-2021 influenza virus vaccine, unspecified formulation Cruz Wilkins MD Work Phone: [facility] 05-26-2020 influenza, injectabl e, quadrivalent, preservative free DRAWING TENDER-C Loan Dias DRAWING TENDER Work Phone: [facility] 05-26-2020 influenza, seasonal, injectable DRAWING TENDER-C Loan Dias DRAWING TENDER Work Phone: [facility] 05-26-2020 influenza, seasonal, injectable, preservative free Cruz Wilkins MD Work Phone: [facility] 09-26-2019 diphtheria, tetanus toxoids and acellular pertussis vaccine, unspecified formulation DRAWING TENDER-C Loan Dias DRAWING TENDER Work Phone: [facility] Work Phone: 09-26-2019 tetanus toxoid, reduced diphtheria toxoid, and acellular pertussis vaccine, adsorbed DRAWING TENDER-Jennifer Dias DRAWING TENDER Work Phone: [facility] Payers Date Payer Category Payer Medicare (Managed Care) [facility] Member Subscriber Plan / Payer (Effective 2023-Present) Name: Bo Jacob Relation to Subscriber: Self Name: Bo Jacob Payer ID: [id number] (NAIC) Group ID: [id number] Type: HMO Address: [address] [place] [id number] 2023 Unknown [facility] [employer] ADVANTAGE HMO [id number] 2023-Present [phone] [address] [place] [address] O [id number] 2023 Medicaid [id number] 2020 Medicaid [id number] 2020 Medicare [id number] 2020 Self-pay [id number] Medicare [id number] Medicare ANTHEM MEDICARE SENIOR ADVANTA [id number] Unknown [id number] Unknown [id number]. 462 Unknown [id number] [id number]. 462 Unknown [id number] [id number]. 462 Unknown [id number] [id number]. 462 Unknown [id number] [id number]. 462 Unknown [id number] [id number]. 462 Unknown [id number] 2.16840.1.351943.3.579.2. 462 Unknown [id number] 2.16840.1.260380.3.579.2. 462 Unknown [id number] 2.16840.1.891083.3.579.2. 462 Unknown [id number] 2.16840.1.926494.3.579.2. 462 Unknown [id number] 2.16840.1.534084.3.579.2. 462 Unknown [id number] 2.16840.1.820239.3.579.2. 462 Unknown [id number] [id number]. 462 Unknown [id number] 2.840.1.710097.3.579.2. 462 Unknown [id number] 2.16840.1.558882.3.579.2. 462 Unknown [id number] [id number]. 462 Unknown [id number] 2.840.1.073705.3.579.2. 462 Unknown [id number] [id number]. 462 Unknown [id number] [id number]. 462 Unknown [id number] [id number]. 462 Social History Date Type Detail Facility Start: 01-21-2022 End: 05-15-2023 Tobacco smoking status [facility] Unknown if ever smoked [facility] Start: 09-07-2020 Occasional [facility] Start: 09-07-2020 None [facility] Start: 09-07-2020 Alone [facility] Start: 11-28-2020 Cigarettes [facility] Start: 1955 Sex Assigned At Female [facility] Start: 05-11-2020 End: 06-09-2024 Tobacco smoking status PAIS Ex-smoker [facility] History of tobacco use Current smoker [facility] History of tobacco use Cigarette Smoker C [facility] Start: 05-11-2020 End: 11-04-2024 Tobacco use and exposure Smokeless tobacco non-user [facility] Start: 07-16-2021 End: 07-27-2024 Alcoholic beverage intake Current drinker of alcohol (finding) [facility] Start: 07-24-2020 End: 07-16-2021 Alcoholic beverage intake [facility] Start: 06-10-2020 End: 07-24-2020 Alcohol Use Disorder Identification Test - Consumption [AUDIT-C] [facility] How often to you hav e a drink containing alcohol? 2-3 time sa week [facility] How many standard dr inks containing alcohol do you have on a typical day? 3 or 4 [facility] Start: 07-20-2012 Frequency of Binge Drinking Not on file [facility] Start: 05-11-2020 End: 06-09-2024 Tobacco Comment Pt smoked one pack weekly x 1 year. [facility] Start: 04-25-2021 Alcohol Comment glass of wine every couple of days [facility] Start: 03-29-2020 Gender identity Identifies as female gender (finding) [facility] Has the [employer] [place], [employer], or water Moat threatened to shut off services in your home in past 12Mo No [facility] Work Phone: (I/We) worried ian er (my/our) food would run out before (I/we) got money to buy more. Never true [facility] Start: 06-24-2024 Alcohol Comment rately [facility] Start: 09-22-2024 End: 04-07-2025 Alcoholic beverage intake Ex-drinker (finding) [facility] Start: 11-04-2024 End: 04-12-2025 Tobacco smoking status NHIS Never smoked tobacco [facility] Start: 11-04-2024 Alcohol Comment none [facility] Start: 11-05-2024 End: 11-11-2024 Sex Female (finding) [facility] NEGATED: Highlighted row [facility] Medical Equipment Procedure Code Equipment Code Equipment Origin al Text Equipment Identifier Dates [place] M ri 8fr Plastic Polyurethane Implantable Infusion - [id number] Start: 06-08-2020 [place] occcluder FDA Start: 09-10-2024 [place] occcluder FDA Start: 09-10-2024 [place] occcluder FDA Start: 09-10-2024 [id number] Start: 11-25-2024 [place] occcluder FDA Start: 09-10-2024 [place] occcluder FDA Start: 09-10-2024 [place] occcluder FDA Start: 09-10-2024 [place] occcluder FDA Start: 09-10-2024 [place] occcluder FDA Start: 09-10-2024 Goals Date Patient Goal Desired Activity /State Personal health goal Functional Status Date Assessment Result Facility 09-30-2024 Are you deaf, or do you have serious difficulty hearing No 09/30/2024 4:43 PM Trey Morley RN No [facility] 09-30-2024 Are you blind, or do you have serious difficulty seeing, even when wearing glasses No 09/30/2024 4:43 PM Trey Morley RN No [facility] 09-30-2024 Do you have serious difficulty walking or climbing stairs No 09/30/2024 4:43 PM Trey Morley RN No [facility] 09-30-2024 Do you have difficul ty dressing or bathing No 09/30/2024 4:43 PM Trey Morley RN No [facility] 09-30-2024 Because of a physica l, mental, or emotional condition, do you have difficulty doing errands alone such as visiting a physician's office or shopping No 09/30/2024 4:43 PM Trey Morley RN No [facility] Mental Status Date Assessment Result Facility 04-04-2025 Cognitive function Voice/Name [facility] Work Phone: 09-30-2024 Because of a physica l, mental, or emotional condition, do you have serious difficulty concentrating, remembering, or making decisions No 09/30/2024 4:43 PM Trey Morley RN No [facility] 12-12-2023 Cognitive function Level Of Cons ciousness Awake;Alert;Appropriate [facility] Work Phone: 12-03-2023 Cognitive function Level Of Cons ciousness Awake;Alert [facility] Work Phone: 12-03-2023 Cognitive function Voice/Name [facility] Work Phone: 05-21-2022 Cognitive function Voice/Name [facility] Work Phone: 01-21-2022 Cognitive function Level Of Cons ciousness Awake;Alert;Appropriate;Fol lows Commands [facility] Work Phone: Clinical Notes 04-11-2021 to 04-07-2025 Sariah Palomo LPN - 04/07/2025 10:06 AM EDTGjuliusJarred GISELA Burrows - 04/07/2025 9:54 AM EDT Note Date & Type Note Facility 04-07-2025 Note [facility] 04-07-2025 History of Present illness Narrative Prepared 3 cc syringe with 2 cc bupivacaine and 1 cc depo medrol with 25 gauge needle and gave to MD for injection - Sariah Palomo LPN Associated Order(s): Additional Injections: R plantar fascia Post-Procedure Diagnose(s): Plantar fasciitis of right foot CC: Right heel pain HPI: This 69 year old female presents with follow up of pain in the right heel. Rates pain 5/10 today. States she has continuous sharp, stabbing pain. She has some improvement when wearing her shoes with powerstep inserts. Admits to icing, elevation, wearing the night splint and stretching. She states she stretches throughout the day. Has been taking analgesics with some relief. She is currently taking Eliquis twice daily. Denies any other pedal complaints. PMH PAST [...] 1 capsule by mouth once daily. (Patient taking differently: Take 180 mg by mouth once daily.) 90 capsule 3 apixaban (ELIQUIS) 5 mg tab(s) Take 1 tablet by mouth two times a day. [address] (PROTONIX) 20 mg tablet Take 1 tablet by mouth daily at 6 am. 30 tablet 3 aspirin, enteric coated (ECOTRIN LOW STRENGTH) 81 [...] by mouth once daily. 30 tablet 3 prochlorperazine (COMPAZINE) 10 mg [...] person. Patient has normal affect and mood. There were no vitals taken for this visit. Vascular: DP and PT pulses are palpable. CFT less than 3 seconds to all digits bilateral. Skin temperature is warm to warm from proximal to distal bilateral. Hair growth is noted. Mild edema to noted to right heel. No varicosities noted. Neuro: Light touch intact bilateral. Protective sensation intact at all pedal sites via Mcbain Zee 5.07 monofilament bilateral. Derm: Skin texture [...] of calcaneal stress fracture. No signs of Gipson's nerve entrapment. Negative straight leg raise test. No evidence of nodularity or fibromatosis. ASSESSMENT: This is a 69 year old patient presenting with plantar fasciitis and equinus, right foot PLAN: A comprehensive history and physical examination were preformed. The patient was educated on clinical and radiographic findings, diagnosis and treatment plans. Patient state that she understands all that has been explained and all questions were answered to her apparent satisfaction. -We discussed the etiology of the heel complaints as well as the plantar fasciitis treatment protocol. - Continue to stretching, icing, and wearing appropriate shoes. No barefoot walking. - Continue wearing Powersteps - Continue wearing the night splint - Continue rest, ice and elevation. - Offered her a cortisone injection today. Reviewed risks benefits potential side effects of cortisone injection for plantar fasciitis. Patient understands all it has been explained to them and would like to proceed. See procedure note below Follow up in 4 weeks Scribe Attestation: By signing my name below, I, Swati Mcdowell MA, attest that this documentation has been prepared under the direction and in the presence of Jarred Suh DPM. Electronically Signed: Swati Mcdowell MA, Scribjasper. April 07, 2025 10:08 AM. Additional Injections: R plantar fascia for plantar fasciitis injection 04/07/2025 1:27 PM The procedure site was prepped in the usual sterile fashion. Site: R plantar fascia Medications: 40 mg methylPREDNISolone acetate 40 mg/mL Anesthetics: 2 mL BUPivacaine (PF) 0.5 % (5 mg/mL) Outcome: tolerated well, no immediate complications Post-injection instructions were reviewed with the patient and the patient voiced understanding of these instructions. Informed Consent Consent Obtained: Verbal [place] Protocol SIGN IN Patient/Surrogate Stated/Verified: Patient name TIME OUT Correct side/site marked and visible. Medications required for procedure verified. SIGN OUT The post-procedure POC has been communicated to the patient or surrogate. Clinician Attestation Statement: The information in this document, created by the er medical technician for me, accurately reflects the services I personally performed and the decisions made by me. I have reviewed and approved this document for accuracy. Jarred Suh DPM, FACFAS documented in this encounter [facility] 04-07-2025 Note [facility] 04-04-2025 Discharge summary [facility] 03-10-2025 Evaluation note Diagnosis Onset Date Resolution Left knee DJD acute March 10, 2025 1:40pm Acute pericarditis acute February 172024 11:07am Atrial fibrillation with RVR acute March 12, 2025 11:07am Chest pain acute April 08, 2 025 9:19am Anxiety acute April 13, 2 025 3:02pm Essential (primary) hypertension chronic April 13 3:02pm [facility] Work Phone: 1(899) 660-301207-23-2025 NoteHNO ID: [id number] Author: RANDA OLEARY MA Service: ? Author Type: Sack Lifter Type: Progress Notes Filed: 03/11/2025 13:58 Note Text: PT fit for a Med Night Splint. PT advised on application and care of splint. [facility]07-23-2025 History of Present illness Narrative* Randa Oleary MA - 03/10/2025 9:53 AM EDT PT fit for a Med Night Splint. PT advised on application and care of splint. * Jarred Suh DPM - 03/10/2025 9:13 AM EDT CC: Right heel pain HPI: This 69 [...] mouth every 6 hours as needed. 30 tablet0 No current facility-administered medications for this visit. [...] Hair growth is noted. Mild edema to notedto right heel. No varicosities noted. Neuro: Light touch intact bilateral. Protective sensation intact at all pedal sites via Mcbain Zee 5.07 monofilament bilateral. Derm: Skin texture [...] of calcaneal stress fracture. No signs of Gipson's nerve entrapment. Negative straight leg raise test. No evidence of nodularity or fibromatosis. Last XR Foot - Impression Only XR FOOT GENERAL 3V AP/LAT/OBL RIGHT Exam End: 03/06/2025 7:22 PM (Final result) Impression: IMPRESSION: Prominent enthesophyte off the plantar aspect posterior calcaneal tuberosity. Home Attendant: RODO ... ASSESSMENT: This is a 69 [...] Jarred Suh DPM, FACFAS documented in [facility] encounterWhite [facility]25 [facility]07-21-2025 Telephone encounter Note* Telephone Encounter - Annie Gipson - 03/08/2025 10:48 AM EDT I spoke with the patient and scheduled an appointment. Annie Gipson [facility]07-21-2025 Miscellaneous Notes* Telephone Encounter - Annie Gipson - 03/08/2025 10:48 AM EDT I spoke with the patient and scheduled an appointment. Annie Gipson * Telephone Encounter - Annie Gipson - 03/08/2025 9:36 AM EDT ----- Message from Eddie Wilkerson sent at 03/08/2025 9:20 AM EDT ----- Regarding: Orthopedics / Foot: Plantar Fasciitis / Recent ED Visit Subject Line Format: Orthopedics / [Provider Name or Open & Body Part] / [Issue] Orthopedics / Foot: Plantar Fasciitis / Recent ED Visit Patient has been identified by name and Date of (Y/N): yes Patient: Bo Jacob Date of : 1955 Previous Provider Seen: none Body Part(s) Identified: left foot Diagnosis/Reason For Visit: Plantar Fasciitis bone spur Reason for the call/escalation: er follow up If reason for call/escalation is discharge from ED/ER or Hospital, which facility was the patient seen at: [facility] Was an appointment scheduled (Y/N): no Person calling if other than patient: no Return call to if other than patient: no Best contact number: [phone] Thank you, Eddie Fritz March 08, 2025 9:20 AM documented in this encounterWhite Hospital07-21-2025 Telephone encounter Note * Telephone Encounter - Annie Gipson - 03/08/2025 9:36 AM EDT ----- Message from Eddie Wilkerson sent at 03/08/2025 9:20 AM EDT ----- Regarding: Orthopedics / Foot: Plantar Fasciitis / Recent ED Visit Subject Line Format: Orthopedics / [Provider Name or Open & Body Part] / [Issue] Orthopedics / Foot: Plantar Fasciitis / Recent ED Visit Patient has been identified by name and Date of (Y/N): yes Patient: Bo Jacob Date of : 1955 Previous Provider Seen: none Body Part(s) Identified: left foot Diagnosis/Reason For Visit: Plantar Fasciitis bone spur Reason for the call/escalation: er follow up If reason for call/escalation is discharge from ED/ER or Hospital, which facility was the patient seen at: [facility] Was an appointment scheduled (Y/N): no Person calling if other than patient: no Return call to if other than patient: no Best contact number: [phone] Thank you, Eddie Fritz March 08, 2025 9:20 AM [facility]05-13-2025 Telephone encounter Note* Telephone Encounter - Mary Boothe RN - 12/29/2024 11:13 AM EDT Telephone encounter regarding clearance was sent to Dr. Gorman. Mary Boothe RN [facility]05-13-2025 Miscellaneous Notes* Telephone Encounter - Mary Boothe RN - 12/29/2024 11:13 AM EDT Telephone encounter regarding clearance was sent to Dr. Gorman. Mary Boothe RN documented in this encounterWhite Hospital05-02-2025 Telephone encounter Note * Telephone Encounter - Yazmin Maravilla RN - 12/18/2024 7:55 AM EDT Clearance form to hold Eliquis received from Dr Alex ANDREW. Form placed in Dr. Gorman's door box. Yazmin Maravilla RN [facility]05-02-2025 Miscellaneous Notes* Telephone Encounter - Yazmin Maravilla RN - 12/18/2024 7:55 AM EDT Clearance form to hold Eliquis received from Dr Alex ANDREW. Form placed in Dr. Gorman's door box. 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 breast chronic December 14, 2024 1:58pm Osteopenia chronic December 14 1:58pm Anxiety as acute reaction to gross stress acute December 14, 2024 2:15pm Encounter for chemotherapy management acute December 14, 2024 2:15pm Encounter for education acute A pril 2024 2:15pm Rash acute December 14 2:15pm Urinary frequency acute November 182024 2:15pm Breast cancer of lower-inner quadrant of right female breast chronic December 14, 2024 2:15pm Osteopenia chronic December 14 2:15pm Chest pressure resolved November 2:15pm Drug rash resolved December 14 2:15pm Left knee DJD acute March 10, 2025 1:40pm [facility] [employer] Work Phone: [phone]) 252-1419518590-24-3434 Evaluation note* Diagnosis Onset Date Resolution Status Admit Date Breast cancer of lower-inner quadrant of right female breast chronic December 14, 2024 1:58pm Osteopenia chronic December 14 1:58pm Anxiety as acute reaction to gross stress acute December 14, 2024 2:15pm Encounter for chemotherapy management acute December 14, 2024 2:15pm Encounter for education acute A pril 2024 2:15pm Rash acute December 14 2:15pm Urinary frequency acute November 182024 2:15pm Breast cancer of lower-inner quadrant of right female breast chronic December 14, 2024 2:15pm Osteopenia chronic December 14 2:15pm Chest pressure resolved November 2:15pm Drug rash resolved December 14 2:15pm Left knee DJD acute March 10, 2025 1:40pm Acute pericarditis acute February 172024 11:07am Atrial fibrillation with RVR acute March 12, 2025 11:07am [facility] Work Phone: 1(597) 679-716604-23-2025 [facility]04-23-2025 History of Present illness Narrative* Christy Luna APRN.CNP - 12/09/2024 4:02 PM EDT Reviewed, continue with current plan of care. Will have office staff arrange annual follow-up with Dr. Gorman or STEPHANIE. Christy Luna APRN.SERVICE ORDER TAKER * Jeanna Pickens RN - 12/09/2024 10:49 [...] fever. Jeanna Pickens RN documented in this encounterWhite Hospital04-23-2025 [facility]03-21-2025 Telephone encounter Note* Telephone Encounter - Yazmin Maravilla RN - 11/06/2024 1:12 PM EDT Pt's name has been added to [facility] procedure board. Yazmin Maravilla RN [facility]03-21-2025 Miscellaneous Notes* Telephone Encounter - Yazmin Maravilla RN - 11/06/2024 1:12 PM EDT Pt's name has been added to [facility] procedure board. Yazmin Maravilla RN * Telephone Encounter - Alondra Hauser - 11/06/2024 1:00 PM EDT Patient is scheduled for an ILR Implant on 11/[address] Gorman The hospital will call the day before between 2-5pm with your arrival time. Patient will go home same day. Local anesthetic only; no food, driving or medication restrictions needed. Spoke with Bo Jacob on November 06, 2024. Informed of instructions as stated above. Patient verbalized understanding. Alondra Hauser documented in this encounterWhite Hospital03-21-2025 Telephone encounter Note * Telephone Encounter - Alondra Hauser - 11/06/2024 1:00 PM EDT Patient is scheduled for an ILR Implant on 11/[address] Gorman The hospital will call the day before between 2-5pm with your arrival time. Patient will go home same day. Local anesthetic only; no food, driving or medication restrictions needed. Spoke with Bo Jacob on November 06, 2024. Informed of instructions as stated above. Patient verbalized understanding. Alondra Hauser [facility]03-19-[address]25 [facility]03-19-2025 History of Present illness Narrative* Francisco Gorman MD - 11/04/2024 3:29 PM EDT Images from the original note were not included. Heart and Vascular [place] [facility] SECTION OF CARDIAC PACING and ELECTROPHYSIOLOGY OUTPATIENT VISIT DATE November 04, 2024 OUTPATIENT VISIT TYPE ESTABLISHED PRIMARY CARE PHYSICIAN: Loan Dias (Debra) [address] [facility] [address] [place] [id number] HISTORY OF PRESENT ILLNESS: 69 year-old female [...] and eventually discharged with event monitor. Ms. Jacob presents for an office visit. She continues [...] recorder will also assist in deciding whether medical terminologist anticoagulation is necessary - SURGICAL REQUEST - ELECTIVE (03/2020) 2. Sinus bradycardia - ICD9: 427.89, ICD10: R00.1 - SURGICAL REQUEST - ELECTIVE (03/2020) Francisco Gorman MD CONTACT INFORMATION: Francisco Gorman MD documented in this encounterWhite Hospital03-15-2025 Radiology Diagnostic study note [facility] Imaging Services [address] [place] [address] Abdomen Limited MR#: [id number] Acct: [id number] Name: BO JACOB Rep #: [id number] : 1955 F 69 From: Omar Perez DO PCP: KEYA Reaves Status: REG CLI Study:Abdomen Limited Date of Exam: 10/17 01/10 Exam# [id number] Ordering Dr: Antonia Escalante MD PROCEDURE: ABDOMEN [...] KEYA Dias; Dr. 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 This [...] MG TABLET Follow-up in 6 months Smith Tidwell MD [employer] Leather Setter of Internal Medicine [facility] Regional Section of Interventional Cardiology Project Lead of Structural Heart Disease [address], [address] [place] [id number] Facsimile: [phone] Email: [email or web address] documented in this encounterWhite Hospital03-12-2025 [facility]03-10-2025 Telephone encounter Note* Telephone Encounter - Jeanna Pickens RN - 10/26/2024 11:51 AM EDT Mayo from {[facility] called in with abnormal Holter alert: Pt experienced fainting on 10/01 at 8:30 am. He will fax report and states it has been uploaded to portal. Jeanna Pickens RN [facility]03-10-2025 Miscellaneous Notes* Telephone Encounter - Jeanna Pickens RN - 10/26/2024 11:51 AM EDT Mayo from {[facility] called in with abnormal Holter alert: Pt experienced fainting on 10/01 at 8:30 am. He will fax report and states it has been uploaded to portal. Jeanna Pickens RN documented in this encounterWhite Hospital02-14-2025 Telephone encounter Note * Telephone Encounter - Jeanna Pickens RN - 10/02/2024 10:30 AM EST Called and spoke with Travis to relay Maddison's recommendations. She states pt is taking amiodarone as specified by Maddison until she follows up with Dr. Gorman. She reports Bo is doing better this morning. Jeanna Pickens RN [facility]02-14-2025 Miscellaneous Notes* Telephone Encounter - Jeanna [...] original note were not included. Shyam Acevedo APRN.SERVICE ORDER TAKER You16 hours ago (4:22 PM) DL Covering for Maddison Luna CNP. Patient was discharged from the hospital 09/30/2024 on amiodarone 400 mg daily x 14 days to be followed by 200 mg daily thereafter in addition to diltiazem CD 360 mg dailyas well as Eliquis 5 mg twice daily. Patient was hooked up to 14-day extended monitor technician. If patient has had syncopal or near [...] 01, 2024 9:33 AM documented in this encounterWhite Hospital02-14-2025 Telephone encounter Note * Telephone Encounter - Christy Luna APRN.ARELY - 10/02/2024 10:25 AM EST Agree with the recommendations. She should be taking amiodarone 400 mg daily x 14 days (from hospital discharge) with subsequent reduction to 200 mg daily until she follows up with Dr. Gorman. Christy Luna APRN.ARELY [facility]02-14-2025 Telephone encounter Note* Telephone Encounter - Yazmin [...] if needed for syncope. Yazmin Maravilla RN [facility]02-14-2025 Telephone encounter Note* Telephone Encounter - Yazmin Maravilla RN - 10/02/2024 8:37 AM EST Images from the original note were not included. Shyam Acevedo APRN.SERVICE ORDER TAKER You16 hours ago (4:22 PM) DL Covering for Maddison Luna CNP. Patient was discharged from the hospital 09/30/2024 on amiodarone 400 mg daily x 14 days to be followed by 200 mg daily thereafter in addition to diltiazem CD 360 mg dailyas well as Eliquis 5 mg twice daily. Patient was hooked up to 14-day extended monitor technician. If patient has had syncopal or near [...] Acevedo APRN.ARELY October 01, 2024 4:21 PM [facility]02-13-2025 Telephone encounter Note* Telephone Encounter - Yazmin Maravilla RN - 10/01/2024 1:30 PM EST Daughter Travis who is a nurse calls to report pt is feeling better. She reports by noon pt's HR back up to 70s bpm and BP 117/70 mmHg. She reports she gave her mother her diltiazem. She reports evenafter diltiazem HR remains in the 70s bpm. Yazmin Maravilla, RN [facility]02-13-2025 Telephone encounter Note* Telephone Encounter - [...] Ag LPN October 01, 2024 9:33 AM [facility]02-12-[facility]25 [facility]02-12-2025 [facility]02-12-[facility]25 [facility]02-12-2025 Telephone encounter Note* Telephone Encounter - Alondra Hauser - 09/30/2024 3:23 PM EST Follow up(s) scheduled. Patient to be notified upon discharge. Alondra Hauser [facility]02-12-2025 Miscellaneous Notes* Telephone Encounter - Alondra [...] discharged today. Thank you. Christy Luna APRN.ARELY documented in this encounterWhite Hospital02-12-2025 Telephone encounter Note * Telephone Encounter [...] discharged today. Thank you. Christy Luna APRN.CNP [facility]02-12-2025 Telephone encounter Note* Telephone Encounter - Lexa Lew - 09/30/2024 1:26 PM EST Spoke to patient and scheduled 1mo PFO Closure follow up for 10/28/24 at 10:20 AM. Lexa Alcocer [facility]02-12-2025 Miscellaneous Notes* Telephone Encounter - Lexa Lew - 09/30/2024 1:26 PM EST Spoke to patient and scheduled 1mo PFO Closure follow up for 10/28/24 at 10:20 AM. Lexa Alcocer * Telephone Encounter - Vandana Goldstein APRN.CNP - 09/30/2024 1:04 PM EST Please schedule patient to see Dr. Tidwell in 1 month for PFO Closure follow up. Vandana Goldstein APRN.CNP documented in this encounterWhite Hospital02-12-2025 Telephone encounter Note * Telephone Encounter - Vandana Goldstein APRN.CNP - 09/30/2024 1:04 PM EST Please schedule patient to see Dr. Tidwell in 1 month for PFO Closure follow up. Vandana Goldstein APRN.CNP [facility]02-10-2025 [facility]02-10-2025 Note [facility]02-10-2025 [facility] 09-27-2024 [facility]02-09-2025 [facility]02-09-2025 [facility]02-08-2025 [facility]02-08-[facility]02-08-2025 [facility]02-08-2025 [facility]02-08-2025 Note [facility]02-08-2025 NoteHNO ID: [id number] Author: NOTE, INTERFACE, ? Service: ? Author Type: ? Type: Progress Notes Filed: 09/26/2024 02:48 Note Text: Epic Scheduled Downtime: 09/26/2024 1:00:00 AM to 09/26/2024 2:36:00 [facility]02-05-2025 Telephone encounter Note* Telephone Encounter - Ilda Easton LPN - 09/23/2024 4:21 PM EST Images from the original note were not included. Smith Lopez MD You5 minutes ago (4:16 PM) Talked to patient over the phone and addressed all of her concerns. Smith Alcocer [facility]02-05-2025 Miscellaneous Notes* Telephone Encounter - Ilda Easton LPN - 09/23/2024 4:21 PM EST Images from the original note were not included. Smith Lopez MD You5 minutes ago (4:16 PM) Talked to patient over the phone and addressed all of her concerns. Smith Alcocer * Telephone Encounter - Ilda Easton LPN - 09/23/2024 12:06 PM EST Ms. Jacob is calling stating she went to the emergency room on 09/22/2024 to be evaluated. Patient was evaluated but is still experiencing chest pain with walking around her house. Patient is planning on going to [place] on 09/24/2024 and wants to make sure she is still able to go. Ilda Easton LPN * Telephone Encounter - Jeanna Pickens RN - 09/22/2024 5:02 PM EST Bo Jennifer Jacob and daughter called in. She expressed frustration [...] LPN - 09/22/2024 11:12 AM EST Ms. Jacob is calling in stating that she went [...] will affect her ability to travel to [place] on 09/24/2024 for 4 days. Patient is asking for instructions at this time based on symptoms. Ilda Easton LPN * Telephone Encounter - Ilda Easton LPN - 09/22/2024 9:25 AM EST Ms. Jacob is calling in stating she was told to try to follow up with Dr. Lopez after 1 month from her PFO closure. Is patient to be scheduled for this follow up or the 6 month follow up from appointment on 06/24/2024. Ilda Easton LPN documented in this encounterWhite Hospital02-05-2025 Telephone encounter Note * Telephone Encounter - Ilda Easton LPN - 09/23/2024 12:06 PM EST Ms. Jacob is calling stating she went to the emergency room on 09/22/2024 to be evaluated. Patient was evaluated but is still experiencing chest pain with walking around her house. Patient is planning on going to [place] on 09/24/2024 and wants to make sure she is still able to go. Ilda Easton LPN [facility]02-04-2025 Telephone encounter Note* Telephone Encounter - Jeanna Pickens RN - 09/22/2024 5:02 PM EST Bo Jacob and daughter called in. She expressed frustration about not receiving a call backand not receiving any discharge paper work when she was discharged from procedure. Pt is in the ER.She would like to know what the activity guidelines are post procedure, and also if this CP is considered normal. Jeanna Pickens RN [facility]02-04-2025 Telephone encounter Note* Telephone Encounter - Mary Boothe RN - 09/22/2024 2:00 PM EST Pts daughter called the office. Daughter states that they called a squad and went to the ED. Daughter wanted Dr. Lopez to be aware. Mary Boothe RN [facility]02-04-2025 Telephone encounter Note* Telephone Encounter - Ilda Easton LPN - 09/22/2024 11:12 AM EST Ms. Jacob is calling in stating that she went [...] will affect her ability to travel to [place] on 09/24/2024 for 4 days. Patient is asking for instructions at this time based on symptoms. Ilda Easton LPN [facility]02-04-2025 Telephone encounter Note* Telephone Encounter - Ilda Easton LPN - 09/22/2024 9:25 AM EST Ms. Jacob is calling in stating she was told to try to follow up with Dr. Lopez after 1 month from her PFO closure. Is patient to be scheduled for this follow up or the 6 month follow up from appointment on 06/24/2024. Ilda Easton LPN [facility]01-23-2025 Progress note* [facility] - Chantel Lynn RT(R) - 09/10/2024 1:20 PM EST Radiology Service Progress Note PATIENT NAME: Bo Jacob DATE OF SERVICE: September 10, 2024 TIME: [...] (Walker, Cane, Wheelchair, Crutches, etc.)? [facility] GENDER DATA: Assigned female at . status: : No status:NO. PATIENT RELEVANT IMPLANT DATA REVIEWED: Not Applicable PATIENT PRESENTS WITH AN IMPLANTABLE OR ATTACHED VENTURE CAPITAL ANALYST: No RADIOLOGY DEPARTMENT: General X-ray: Exam(s) Completed: Chest X-Ray PERIPHERAL IV DATA: Not applicable SIGNED BY: RT Adriana(Jasbir) September 10, 2024 1:21 PM [facility]01-23-2025 Miscellaneous Notes* [facility] - Chantel Lynn RT(R) - 09/10/2024 1:20 PM EST Radiology Service Progress Note PATIENT NAME: Bo Jacob DATE OF SERVICE: September 10, 2024 TIME: [...] (Walker, Cane, Wheelchair, Crutches, etc.)? [facility] PATIENT GENDER DATA: Assigned female at . status: : No status:NO. PATIENT RELEVANT IMPLANT DATA REVIEWED: Not Applicable PATIENT PRESENTS WITH AN IMPLANTABLE OR ATTACHED VENTURE CAPITAL ANALYST: No RADIOLOGY DEPARTMENT: General X-ray: Exam(s) Completed: Chest X-Ray PERIPHERAL IV DATA: Not applicable SIGNED BY: RT Adriana(R) September 10, 2024 1:21 PM documented in this encounterWhite Hospital01-23-2025 Surgery Surgical operation note* Operative Report - Smith Lopez MD - 09/10/2024 11:06 AM EST PROCEDURE: Intracardiac Echocardiography PFO Closure with a 30mm Columbia Cardioform septal occluder Name: Bo Jacob Date: September 10, 2024 STAFF PHYSICIAN: Dr. Smith Tidwell MD ACCESS: 11F RFV superior access, 11F RFV inferior Access DEVICE: 30mm Columbia Cardioform septal occluder device DETAILS OF PROCEDURE: [...] echo if no issues with ambulation Smith Tidwell MD Blue Leather Setter of Internal Medicine [facility] Section of Interventional Cardiology Project Lead of Structural Heart Disease [address], [address] [place] [address] Facsimile: [phone] Email: [email or web address] [facility]01-[facility] Surgical operation note* Operative Report - Smith Lopez MD - 09/10/2024 11:06 AM EST PROCEDURE: Intracardiac Echocardiography PFO Closure with a 30mm Columbia Cardioform septal occluder Name: Bo Jacob Date: September 10, 2024 STAFF PHYSICIAN: Dr. Smith Tidwell MD ACCESS: 11F RFV superior access, 11F RFV inferior Access DEVICE: 30mm Columbia Cardioform septal occluder device DETAILS OF PROCEDURE: [...] echo if no issues with ambulation Smith Tidwell MD Blue Leather Setter of Internal Medicine [facility] Section of Interventional Cardiology Project Lead of Structural Heart Disease [place] [address] Facsimile: [phone] Email: [email or web address] documented in this encounterWhite Hospital01-14-2025 Telephone encounter Note * Telephone Encounter - Jeanna Pickens RN - 09/01/2024 9:59 AM EST Bo Jacob called in to inquire about next steps in scheduling the PFO procedure. She recalls from [facility] that she was told she would be a good candidate for procedure. Jeanna Pickens RN [facility]01-14-2025 Miscellaneous Notes* Telephone Encounter - Jeanna Pickens RN - 09/01/2024 9:59 AM EST Bo Jacob called in to inquire about next steps in scheduling the PFO procedure. She recalls from [facility] that she was told she would be a good candidate for procedure. Jeanna Pickens RN * Telephone Encounter - Grace Ag MA - 08/17/2024 1:03 PM EST Patient under the understanding she needs another produce, that will close the whole in her heart. She would like a call back with clarification , patient stated she is not clear what the surgery is called due to being sleepy after surgery on 08/05/24. Grace Ag MA documented in this encounterWhite Hospital01-13-2025 Evaluation note* Diagnosis Onset Date Resolution [...] September 21, 2024 9:15am Urinary frequency acute Februar y 2024 9:15am Breast cancer of lower-inner [...] right female breast chronic [facility] Work Phone: [phone] Telephone encounter Note* Telephone Encounter - Grace Ag MA - 08/17/2024 1:03 PM EST Patient under the understanding she needs another produce, that will close the whole in her heart. She would like a call back with clarification , patient stated she is not clear what the surgery is called due to being sleepy after surgery on 08/05/24. Grace Ag MA [facility]12-10-2024 Telephone encounter Note* Telephone Encounter - Alondra Hauser - 07/28/2024 8:55 AM EST Patient is scheduled for a BLACK on 08/05. The hospital will call the day before between 2-5pm with your arrival time. You should not eat or drink after midnight the day before the procedure. You will need a equipment driver when released from the hospital. You should continue to take medications as prescribed the morning of the procedure with just a sip of water unless otherwise instructed. Spoke with Bo Jacob on July 28, 2024. Informed of instructions as stated above. Patient verbalized understanding. Alondra Hauser [facility]12-10-2024 Miscellaneous Notes* Telephone Encounter - Alondra Hauser - 07/28/2024 8:55 AM EST Patient is scheduled for a BLACK on 08/05. The hospital will call the day before between 2-5pm with your arrival time. You should not eat or drink after midnight the day before the procedure. You will need a equipment driver when released from the hospital. You should continue to take medications as prescribed the morning of the procedure with just a sip of water unless otherwise instructed. Spoke with Bo Jacob on July 28, 2024. Informed of instructions as stated above. Patient verbalized understanding. Alondra Hauser documented in this encounterWhite Hospital12-09-2024 Instructions* Patient Instructions* Mikula, Ling, ARTIST BLACKSMITH.ARELY - 07/27/2024 10:55 AM EST Images from the original note were not included. Regarding your visit with Nurse Practitioner Ling Harding today at the [facility] we discussed the following: [...] to clinic in 6 months Ling Harding CNP [facility] Nurse Practitioner [place], [place] [address] Office: [phone] Appointments: [phone] Stroke Signs and Symptoms: *Stroke is a [...] of these signs, don't delay! Immediately call 151, orthe emergency medical services (EMS) number so [...] DASH-style diet rich in fruits and vegetables (https://www.nhlbi.nih.gov/education/apjh-gkaghh-snmz) Consider Mediterranean diet supplemented with nuts Smoking [...] of an exercise program by a health palliative care nurse such as a physical therapist or cardiac [...] for their cardiovascular health Adapted from the [place] Heart Association/Welsh Stroke Association: 2021 Guideline for the Prevention of Stroke in Patients With Stroke and Transient Ischemic Attack documented in this encounterWhite Hospital12-09-2024 [facility]12-09-2024 History of Present illness Narrative* Ling Harding APRN.CNP - 07/27/2024 10:09 AM EST [facility] Established Visit PCP: Loan Magana) [address] [facility] [address] [place] [address] CEREBROVASCULAR HISTORY Bo Jacob is a 68 year old female who [...] tremor. Sensation: Grossly intact light touch. Coordination: Aheutj-ak-vshl without dysmetria bilaterally. Gait: Ambulates easily into [...] (CCF-MODIFIED): Embolic Stroke of Unknown Source Modified Cumby Score: Score: 0 IMPRESSION Subacute right MCA [...] which included preparing to see the patient, aona-gb-biog patient care, completing clinical documentation, obtaining and/or reviewing separately obtained history, performing a medically appropriate examination, counseling and educating the patient/family/caregiver, independently interpreting results (not separately reported), and communicating results to the patient/family/caregiver SIGNATURE Ling Harding APRN.ARELY 07/27/2024 documented in this encounterWhite Hospital12-06-2024 Telephone encounter Note * Telephone Encounter - Yazmin Maravilla RN - 07/24/2024 8:53 AM EST Images from the original note were not included. Alondra Hauser; Cecily Guerrero MD; Smith Lopez MD; Alexis Porter RN (8:28 AM) EO She was scheduled 07/20. I didn't know that it was cancelled. Dr Tidwell will have to reorder the TEEplease Cecily Guerrero MD You; Smith Lopez MD; Alondra Hauser; Alexis Porter RN2 days ago I have added Alondra and Reid here, they can take it further regarding scheduling BLACK with anesthesiaand will contact her with an available date. Thanks Cecily Guerrero MD, FACP, FAC Cardiovascular Airborne Sensor SpecialistReceiving Clerkelectrical engineering director [facility] Pager: [phone] [facility]12-06-2024 Miscellaneous Notes* Telephone Encounter - Yazmin Maravilla RN - 07/24/2024 8:53 AM EST Images from the original note were not included. Alondra Hauser; Cecily Guerrero MD; Smith Lopez MD; Alexis Porter RN (8:28 AM) EO She was scheduled 07/20. I didn't know that it was cancelled. Dr Tidwell will have to reorder the TEEplease Cecily Guerrero MD You; Smith Lopez MD; Alondra Hauser; Alexis Porter RN2 days ago I have added Alondra and Reid here, they can take it further regarding scheduling BLACK with anesthesiaand will contact her with an available date. Thanks Cecily Guerrero MD, FACP, FAC Cardiovascular Airborne Sensor SpecialistReceiving Clerkelectrical engineering director [facility] Pager: [phone] * Telephone Encounter - Yazmin Maravilla RN - 07/22/2024 8:13 AM EST Pt asks if there is anything she should be doing to get BLACK with anesthesia scheduled? Yazmin Maravilla RN documented in this encounterWhite Hospital12-04-2024 Telephone encounter Note * Telephone Encounter - Yazmin Maravilla RN - 07/22/2024 8:13 AM EST Pt asks if there is anything she should be doing to get BLACK with anesthesia scheduled? Yazmin Maravilla RN [facility]11-20-2024 Telephone encounter Note* Telephone Encounter - Marjan Acosta RN - 07/08/2024 11:25 AM EST MODIFIED JOSE SCORE POST-DISCHARGE Telephone Visit Patient Name: Bo Jacob Today's date: July 08, 2024 Date of discharge: April 23, 2024 Person giving information: Bo Jacob. Relationship to patient: Self. Contact information: [phone] Contact attempt: #1 Patient discharge location: Home Patient current location: Home Presentation to ED or readmission after discharge: No Modified Cumby Score: 90 days post discharge: 0 = No symptoms at all. Mortality: No Bo states that she has no residual effects from the stroke whatsoever. She is driving and independent with all activities of daily living. Signature: Marjan Acosta RN July 08, 2024 11:25 AM [facility]11-20-2024 Miscellaneous Notes* Telephone Encounter - Marjan Acosta RN - 07/08/2024 11:25 AM EST MODIFIED JOSE SCORE POST-DISCHARGE Telephone Visit Patient Name: Bo Jacob Today's date: July 08, 2024 Date of discharge: April 23, 2024 Person giving information: Bo Jacob. Relationship to patient: Self. Contact information: [phone] Contact attempt: #1 Patient discharge location: Home Patient current location: Home Presentation to ED or readmission after discharge: No Modified Cumby Score: 90 days post discharge: 0 = No symptoms at all. Mortality: No Bo states that she has no residual effects from the stroke whatsoever. She is driving and independent with all activities of daily living. Signature: Marjan Acosta RN July 08, 2024 11:25 AM documented in this encounterWhite Hospital11-12-2024 Telephone encounter Note * Telephone Encounter - Lisa Chau - 06/30/2024 3:44 PM EST Clearance scanned in from surgical associates placed in Dr. Diann hansen to be reviewed. Lisa Chau June 30, 2024 3:44 PM [facility]11-12-2024 Miscellaneous Notes* Telephone Encounter - Lisa Chau - 06/30/2024 3:44 PM EST Clearance scanned in from surgical associates placed in Dr. Diann hansen to be reviewed. Lisa Chau June 30, 2024 3:44 PM documented in this encounterWhite Hospital11-08-2024 Telephone encounter Note * Telephone Encounter - Alondra Hauser - 06/26/2024 10:49 AM EST Patient is scheduled for a BLACK on 07/20. The hospital will call the day before between 2-5pm with your arrival time. You should not eat or drink after midnight the day before the procedure. You will need a equipment driver when released from the hospital. You should continue to take medications as prescribed the morning of the procedure with just a sip of water unless otherwise instructed. Spoke with Bo Jacob on June 26, 2024. Informed of instructions as stated above. Patientverbalized understanding. Alondra Hauser [facility]11-08-2024 Miscellaneous Notes* Telephone Encounter - Alondra Hauser - 06/26/2024 10:49 AM EST Patient is scheduled for a BLACK on 07/20. The hospital will call the day before between 2-5pm with your arrival time. You should not eat or drink after midnight the day before the procedure. You will need a equipment driver when released from the hospital. You should continue to take medications as prescribed the morning of the procedure with just a sip of water unless otherwise instructed. Spoke with Bo Jacob on June 26, 2024. Informed of instructions as stated above. Patientverbalized understanding. Alondra Hauser documented in this encounterWhite Hospital11-06-[address]24 [facility]11-06-2024 History of Present illness Narrative* Smith Lopez MD - 06/24/2024 10:51 AM EST Chief Complaint: Patient presents with: CARD New Patient Consult: DRAWING TENDER REF FOR PFO Bo Jacob is a 68 year old female with [...] are available. Follow-up in 6 months Smith Tidwell MD Blue Leather Setter of Internal Medicine [facility] Section of Interventional Cardiology Project Lead of Structural Heart Disease [address], [address] [place], [place] [address] Facsimile: [phone] Email: [email or web address] documented in this encounterWhite Hospital11-06-2024 Nurse Note* Lashawn Hilliard MA - 06/24/2024 10:09 AM EST Patient denies any cardiac issues or symptoms. [facility]11-06-[facility] Nurse Note* Lashawn Hilliard MA - 06/24/2024 10:09 AM EST Patient denies any cardiac issues or symptoms. documented in this encounterWhite Hospital10-22-2024 Instructions* Patient Instructions* Ling Harding APRN.CNP - 06/09/2024 2:08 PM EDT Images from the original note were not included. Regarding your visit with Nurse Practitioner Ling Harding today at the [facility] we discussed the following: PLAN Stop aspirin Continue clopidogrel (Plavix) daily. Refills sent to pharmacy Follow up with cardiology as planned. Consider long-term event monitor if PFO closure not indicated. Ling Harding CNP [facility] Center Nurse Practitioner [place], [place] [address] Office: [phone] Appointments: [phone] Stroke Signs and Symptoms: *Stroke is a [...] these signs, don't delay! Immediately call 911, orthe emergency medical services (EMS) number so [...] DASH-style diet rich in fruits and vegetables (https://www.nhlbi.nih.gov/education/tvxf-enfmnv-qcic) Consider Mediterranean diet supplemented with nuts Smoking [...] of an exercise program by a health palliative care nurse such as a physical therapist or cardiac [...] for their cardiovascular health Adapted from the [place] Heart Association/Welsh Stroke Association: 2021 Guideline for the Prevention of Stroke in Patients With Stroke and Transient Ischemic Attack documented in this encounterWhite Hospital10-22-2024 History of Present illness Narrative* Ling Harding APRN.CNP - 06/09/2024 1:30 PM EDT [facility] Established Visit PCP: Loan Dias (Debra) [address] [address] CEREBROVASCULAR HISTORY Bo Jacob is a 68 year old female who [...] ICU, she was later transferred to the [facility] ECHO was obtained and she was found [...] tremor. Sensation: Grossly intact light touch. Coordination: Bumvio-ti-leuh without dysmetria bilaterally. Gait: Ambulates easily into [...] (CCF-MODIFIED): Embolic Stroke of Unknown Source Modified Jose Score: Score: 0 IMPRESSION Subacute right MCA [...] which included preparing to see the patient, hafm-ox-ovjh patient care, completing clinical documentation, obtaining and/or reviewing separately obtained history, performing a medically appropriate examination, counseling and educating the patient/family/caregiver, independently interpreting results (not separately reported), and communicating results to the patient/family/caregiver SIGNATURE Ling Harding APRN.ARELY 06/09/2024 documented in this encounterWhite Hospital10-22-2024 [facility]09-11-2024 Telephone encounter Note* Telephone Encounter - Marjan Acosta RN - 04/29/2024 1:16 PM EDT STROKE POST-DISCHARGE CALLBACK Telephone Visit Patient Name: Bo Jacob Today's date: April 29, 2024 Date of discharge: April 23, 2024 Person giving information: Bo Jacob. Relationship to patient: self. Contact information: [phone] Contact attempt: #1 Patient discharge location: home [...] I also talked with her about the color television console monitor that she is wearing and how [...] primary care provider as well as her spearer. 4.Follow ups. Bo says she is seeing her primary care provider today, and has an appointment soon with her spearer. She also has an appointment to see Dr. Tidwell about her PFO in June. She was not aware that an appointment had been scheduled for her with stroke neurology clinic. I provided her the details of the appointment, which she appreciated. She denies transportation needs. Signature: Marjan Acosta RN April 29, 2024 1:16 PM [facility]09-11-2024 Miscellaneous Notes* Telephone Encounter - Marjan Acosta RN - 04/29/2024 1:16 PM EDT STROKE POST-DISCHARGE CALLBACK Telephone Visit Patient Name: Bo Jacob Today's date: April 29, 2024 Date of discharge: April 23, 2024 Person giving information: Bo Jacob. Relationship to patient: self. Contact information: [phone] Contact attempt: #1 Patient discharge location: home [...] I also talked with her about the color television console monitor that she is wearing and how [...] primary care provider as well as her spearer. 4.Follow ups. Bo says she is seeing her primary care provider today, and has an appointment soon with her spearer. She also has an appointment to see Dr. Tidwell about her PFO in June. She was not aware that an appointment had been scheduled for her with stroke neurology clinic. I provided her the details of the appointment, which she appreciated. She denies transportation needs. Signature: Marjan Acosta RN April 29, 2024 1:16 PM documented in this encounterWhite Hospital09-04-[address]24 [facility]09-03-2024 [facility]09-03-2024 [facility]09-02-2024 [facility]09-02-2024 [facility]09-02-2024 [facility]09-01-2024 Note HNO ID: [id number] Author: CRUZ WILKINS MD Service: ? Author Type: Physician Type: Progress Notes Filed: 04/19/2024 15:50 Note Text: TELESTROKE DOCUMENTATION Name: Bo Jacob : 1955 Referring Site: [facility] Referring Provider: Dr Garcia Last Known Well (Date/Time): 04/19/24 1350 Neurologist [...] a telestroke. Thank you for contacting the [facility]. I appreciate the opportunity for allowing me to participate in Bo Jennifer Jacob's care. Please feel free to contact me and/or the [facility] at any time if you have any further questions or need additional assistance. Cruz Wilkins MD April 19, 2024 3:28 [facility]09-01-2024 History of Present illness Narrative* Cruz Wilikns MD - 04/19/2024 3:10 PM EDT TELESTROKE DOCUMENTATION Name: Bo Jacob : 1955 Referring Site: [facility] Referring Provider: Dr Jose Last Known Well [...] a telestroke. Thank you for contacting the [facility]. I appreciate the opportunity for allowing me to participate in Bo Jacob's care. Please feel free to contact me and/or the [facility] at any time if you have any further questions or need additional assistance. Cruz Wilkins MD April 19, 2024 3:28 PM documented in this encounterWhite Hospital04-16-2024 Discharge summary Author Raymond Lagos [facility] December 03, 2023 11:52am Note Date/Time December 03, 2023 11: 48am [facility] Medical Records Department [address] [place] [address] Instructions for Home/Discharge Instructions 12/03/23 1148 MR#: [id number] Acct: [id number] Name: BO JACOB Rep #:[id number] : 1955 68 From: Raymond Lagos DO PCP: Dr. Ashley Luna MD Status:[facility] Discharge Instructions Diet Discharge Diet: No restrictions [...] 25 mg PO DAILY Qty: 30 11RF qmphrwmajxmp-lcgf-trgyu acid 1 EACH tablet 1 ea PO [...] 12/03/23 1152<Electronically signed by Raymond Lagos DO>Raymond Gonzalezfiona BRITTON CC: Dr. Ashley Luna MD ~ Signed [facility] Work Phone: 1(359) 760-720804-16-2024 History and physical note Author Raymond [facility] December 03, 2023 9:57am Note Date/Time December 03, 2023 9:5 7am [facility] Medical Records Department [address] [place] [address] History & Physical Exam 12/03/23 0956 MR#: [id number] Acct: [id number] Name: BO JACOB Rep #:[id number] : 1955 68 From: Raymond Lagos DO PCP: Dr. Ashley Luna MD Status:REG [facility] [facility]02-1 History and Physical Date of Admission: 12/03/23 [facility] [address] [place] [address] OFFICE VISIT Date of Service: 11/06/23 MR#: [id number] Acct: [id number] Name: BO JACOB Rep #: [id number] : 1955 Provider: Dr. Raymond Lagos DO Age/Sex: 68/F Location: [facility] [place] Status: Signed Intake Vital Signs 09/23/2409:37 11/03/2410:12 [...] .COMPLEX #90 tabs 08/20/23 [Rx Confirmed 11/06/23] PFSH Medical History Alcohol use Arthritis Breast cancer [...] 1-2 times per week duration: 15-30 minutes/day frankie/scientologist: Non-Hinduism/Independent seatbelt use: always do you feel safe at home: Yes HPI left knee Details: This documentation accurately reflects the service provided and the decisions made by me, Dr. Raymond Lagos, DO 11/06/23 2670. Part of today?s visit was documented by [ ], acting as scribe. BO JACOB is a 68 year old F here [...] answered. Patient in agreement of plan. 11/06/23 08 <Electronically signed by Raymond Lagos DO> Date [...] excising it now that it is smaller. 12/03/23956 <Electronically signed by Raymond Lagos DO> Cosigner Signature (if applicable): CC: Dr. Raymond Lagos DO; Dr. Ashley Luna MD~ Signed [facility] Work Phone: [phone] Procedure [facility] 04-24-2021 NoteHNO ID: [id number] Author: Marisabel Kurtz RN Service: Care Management Author Type: Registered Nurse Type: Care Mgt Progress Note Filed: 04/24/2021 2:59 PM Note Text: CARE MANAGEMENT DISCHARGE NOTE SERVICE DATE: 04/24/2021 SERVICE TIME:2:57pm LOS: 13 days Admission Date: 04/11/2021 DISCHARGE ARRANGEMENT (list agency and phone number) Discharge Arrangement: long term facility Was an expedited discharge program used?: No Provider Name: [facility] Phone: [phone] CAREGIVER ASSESSMENT: HANDOFF COMMUNICATION: Handoff to: Primary Care Physician Primary Care Physician Name/Phone: routed TRANSPORTATION ARRANGEMENTS: Transportation Arrangements: Ambulance/[facility] Agency and Phone #:: [facility] [phone] Date of Trip: 04/24/21 Time of Trip: 1600 Type of Service: BLS Non-emergency Is Patient Medicaid Pending?: No Discussion of financial coverage occurred with: 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 Final dc order, avs dc summary, updated chart sent via [employer]. Facility willing to accept. Patient and dtr aware, no concerns voiced. Bedside rn will call report. SIGNATURE: Marisabel Kurtz RN PATIENT NAME: Bo Jacob DATE: April 24, 2021 TIME: 2:57 PM PAGER/CONTACT #: [phone] NoteHNO ID: [id number] Author: JUAN Bolivar Service: Care Management Author Type: Coating And Embossing Unit Operator Type: Care Mgt Progress Note Filed: 04/23/2021 4:20 PM Note Text: CARE MANAGEMENT PROGRESS NOTE SERVICE DATE: 04/23/2021 SERVICE TIME: 4:19 PM LOS: 12 days Needs Prior to Discharge: Ready for Discharge Pt and family have discussed dc plan and the final choice is to transfer to [facility]. If pt stable for dc on 04/23 pt can be transported at 4:00. Cm will follow SIGNATURE: JUAN Bolivar PATIENT NAME: Bo Jacob DATE: April 23, 2021 TIME: 4:18 PM PAGER/CONTACT #: [phone] NoteHNO ID: [id number] Author: Ty Pulido MD Service: General Internal Medicine Author Type: Physician Type: Progress Notes Filed: 04/23/2021 5:18 PM Note Text: SUBJECTIVE Patient is down to 2 L on nasal cannula oxygen Daughter is at the bedside Patient is very eager to go back to [facility] does not have any beds Cough is [...] will have to consider rehab at the [facility] In any case we decided that the chances of patient going in meeting her in the ICU is very low given that she is positive and he is in the ICU Everyone is in agreement with this plan I discussed with the social service liaison Plan of care discussed with: Provider, RN, Patient and Family/Significant Other: Daughter. This note was partially generated using a voice recognition software system and there may be some incorrect words, phrases, spellings or punctuation that were not noted in review before signing.[facility] 04-22-2021 NoteHNO ID: [id number] Author: Ty Pulido MD Service: General Internal [...] hospital and spoke to the nursing supervisor speech and later spoke to the social service liaison I had to conversation with the social service liaison who tells me that the transition care unit/rehab does not have any beds. In the acute unit, the hospitalist was not willing to consider transfer and they are also very short on beds This message was conveyed to the patient We will continue to wean down the oxygen I will discussed with the social service liaison about possibly transferring her to the [facility] Plan of care discussed with: Provider, RN, Patient. This note was partially generated using a voice recognition software system and there may be some incorrect words, phrases, spellings or punctuation that were not noted in review before signing.[facility] 04-21-2021 NoteHNO ID: [id number] Author: Raymond Carmona PA-C Service: Pulmonary Disease Author Type: Physician Fast Food Delivery Driver Type: Progress Notes Filed: 04/21/2021 12:51 PM Note Text: Attestation signed by Ramirez Groves MD at 04/21/2021 1:57 PM Attending Note I have personally performed a face to face assessment of the patient and have reviewed the KIRILL/BAR note. My posada findings include: Subjective: Feels [...] - Spiritual care consult INTERVAL EVENTS Miss Jacob is in bed. States that she's had a rough morning and is trying to cope with her who is intubated d/t COVID pneumonia at another hospital. She would like to talk to a button breaker if possible. Otherwise, she feels like she [...] ORAL DAILY (6 AM) - phenol 1 [place] (CHLORASEPTIC) 1 [place] MUCOUS MEMBRANE (TOPICAL MOUTH AND THROAT) q 2 H PRN - sodium chloride 0.65 % 2 [place] (AYR, OCEAN) 2 [place] EACH NOSTRIL PRN EXAM BP 115/75 Pulse [...] hours) at 04/21/2021 1243 (more content not included)...[facility]09-03-2021 NoteHNO ID: [id number] Author: Ty Pulido MD Service: General Internal [...] exemestane ? PLAN PT and OT recommend [facility] We are waiting to try and see if he can bring down oxygen requirements and subsequently will consider [facility] She is finishing her Decadron course Reviewed all her medications Discussed with the nursing staff We will make attempts to wean down oxygen Plan of care discussed with: Provider, RN, Patient. This note was partially generated using a voice recognition software system and there may be some incorrect words, phrases, spellings or punctuation that were not noted in review before signing.[facility] 04-20-2021 NoteHNO ID: [id number] Author: Ty Pulido MD Service: General Internal [...] that were not noted in review before signing.[facility] 04-20-2021 NoteHNO ID: [id number] Author: Raymond Moscsoo MD Service: Pulmonary Disease Author Type: Physician Type: Progress Notes Filed: 04/20/2021 9:51 AM Note Text: . Critical Care Consult Follow-up Note Patient Name: Bo Jacob Date: April 20, 2021 Subjective: No issues [...] ORAL DAILY (6 AM) - phenol 1 [place] (CHLORASEPTIC) 1 [place] MUCOUS MEMBRANE (TOPICAL MOUTH AND THROAT) q [...] to chair ? Stable for transfer to [facility], Dr Pulido to assume care on the floor ? Updated daughter Travis on the phone Raymond Moscoso MD April 20, 2021 9:50 [facility]09-01-2021 NoteHNO ID: [id number] Author: Raymond Moscoso MD Service: Pulmonary Disease Author Type: Physician Type: Progress Notes Filed: 04/19/2021 12:06 PM Note Text: . Critical Care Consult Follow-up Note Patient Name: Bo Jacob Date: April 19, 2021 Subjective: Breathing a [...] able, PT/OT ? Stable for transfer to [facility], will consult Dr Pulido to assume care. We will see her tomorrow on the floor ? Updated daughter Travis on the phone Raymond Moscoso MD April 19, 2021 10:06 [facility]08-31-2021 NoteHNO ID: [id number] Author: Raymond Moscoso MD Service: Pulmonary Disease Author Type: Physician Type: Progress Notes Filed: 04/18/2021 9:20 AM Note Text: . Critical Care Consult Follow-up Note Patient Name: Bo Jacob Date: April 18, 2021 Subjective: No issues [...] Raymond Moscoso MD April 18, 2021 9:19 [facility]21 NoteHNO ID: [id number] Author: Dina Manley APRN.[facility] Service: ? Author Type: Nurse Practitioner Type: Progress Notes Filed: 04/17/2021 1:54 PM Note Text: Clinical Indicators: 04/17/21 Nutrition Therapy Notes Nutrition Assessment: Recommended Malnutrition Diagnosis: Mild Protein-Calorie Malnutrition In the context of: Acute Illness or Injury Based on: Insufficient Energy Intake HPI: 65 year old F admitted for SOB / COVID PNA. PMHx significant for ER/ME positive, HER2 positive invasive ductal carcinoma in [...] to Determine Other, please specify Dina Manley APRN.[facility]08-30-2021 NoteHNO ID: [id number] Author: Raymond Moscoso MD Service: Pulmonary Disease Author Type: Physician Type: Progress Notes Filed: 04/17/2021 9:43 AM Note Text: . Critical Care Consult Follow-up Note Patient Name: Bo Jacob Date: April 17, 2021 Subjective: Still anxious [...] Raymond Moscoso MD April 17, 2021 9:27 [facility]08-29-2021 NoteHNO ID: [id number] Author: Ramirez Groves MD Service: Critical Care Author Type: Physician Type: Progress Notes Filed: 04/16/2021 12:27 PM Note Text: . Pulmonary AND Critical Care Medicine Follow-up Note Patient Name: Bo Jacob SERVICE DATE: 04/16/2021 ASSESSMENT 1. Acute hypoxic [...] spouse is critically ill and deteriorating at [place] ICU. ICU Checklist Last Documented/Reviewed time: 04/16/2021 [...] Is Patient Clinically Ready to Transfer to [facility] or SDU?: No Discharge Planning: To [...] Groves MD Pulmonary AND Critical Care Medicine [facility] [place] April 16, 2021 9:14 AM SUBJECTIVE INTERVAL [...] 6 mg (DECADRON) 6 (more content not included)...[facility]08-28-2021 NoteHNO ID: [id number] Author: Ramirez Groves MD Service: Critical Care Author Type: Physician Type: Progress Notes Filed: 04/15/2021 1:04 PM Note Text: . Pulmonary AND Critical Care Medicine Follow-up Note Patient Name: Bo Jacob SERVICE DATE: 04/15/2021 ASSESSMENT 1. Acute hypoxic [...] Groves MD Pulmonary AND Critical Care Medicine [facility] [place] April 15, 2021 9:53 AM SUBJECTIVE INTERVAL [...] PHYSICAL EXAM: Vital Sign (more content not included)...[facility]08-28-2021 NoteHNO ID: [id number] Author: Popeye Arzola MD Service: Hospital Medicine Author Type: Physician Type: Progress Notes Filed: 04/15/2021 9:32 AM Note Text: INTERNAL MEDICINE PROGRESS NOTE PATIENT NAME: Bo Jacob DATE AND TIME OF SERVICE: April 15, [...] 0700 to 1700 please page me at [phone]; - nights from 1700 to 0700 please page the Medical Wind Tunnel Technician at [phone] or the night coverage physician at [phone].[facility] 04-14-2021 NoteHNO ID: [id number] Author: Raisa Bueno RN Service: Care Management Author Type: Registered Nurse Type: Care Mgt Progress Note Filed: 04/14/2021 12:22 PM Note Text: CARE MANAGEMENT PROGRESS NOTE SERVICE DATE: 04/14/2021 SERVICE TIME: 0800 LOS: 3 days [place] of Choice Given: Yes Level of Care Discussed: Intermediate Facility Provider List: (SNF choices reviewed with patient's daughter) Needs Prior to Discharge: Accepting Facility;To Be Determined;Bed Availability;Discharge Transportation Chart reviewed. Spoke with patient via room phone to discuss pt/ot evaluation: SNF. Patient agrees; aware snf choices limited due to +COVID. Call placed to patient's daughter to review snf choices as patient very sob(bedside RN notified) Preference: [facility]; referral sent. Facility can accept when patient medically stable on 4LNC O2 or less. Covid test within 72 hours of admission. Patient, Dr Castellon, bedside RN informed, VM left for patient's daughter to inform. SIGNATURE: Raisa Bueno RN PATIENT NAME: Bo Jacob DATE: April 14, 2021 TIME: 12:13 PM PAGER/CONTACT #: [phone] NoteHNO ID: [id number] Author: Sukumar Castellon MD Service: ? Author Type: Physician Type: Progress Notes Filed: 04/14/2021 3:40 PM Note Text: INTERNAL MEDICINE PROGRESS NOTES Patient Name: Bo Jacob DATE of SERVICE: 04/14/2021 TIME of SERVICE: [...] 100 mg in NaCl 0.9% 250 mL Vial-Mate/ADD-Ronda 100 mg INTRAVENOUS q 24 HR - [...] bacterial pneumonia- elevated presenting procalcitonin. Zosyn day #4/ per ID. Vancomycin discontinued with negative nasal MRSA screen. ? 3. Hx invasive ductal carcinoma right breast 2019- Aromasin daily. ? 4. Hypertension- cozaar ? 5.?DVT Prophylaxis- low molecular weight heparin. Above reviewed with the patients daughter Travis [phone] Arzola to assume care of patient as Attending physician effective 0700 04/15/21. SIGNATURE: Sukumar Castellon MD Date: 04/14/2021 Time: 8:33 AM Plan of care discussed with: Provider, RN, Patient. Total time caring/evaluating patient was 30 minutes.[facility]08-26-2021 NoteHNO ID: [id number] Author: Dina Manley APRN.[facility] Service: ? Author Type: Nurse Practitioner [...] exercise Nutrition consultation as needed Dina Manley APRN.[facility]08-26-2021 NoteHNO ID: [id number] Author: Sukumar Castellon MD Service: ? Author Type: Physician Type: Progress Notes Filed: 04/13/2021 8:02 AM Note Text: INTERNAL MEDICINE PROGRESS NOTES Patient Name: Bo Jacob DATE of SERVICE: 04/13/2021 TIME of SERVICE: [...] 100 mg in NaCl 0.9% 250 mL Vial-Mate/ADD-Ronda 100 mg INTRAVENOUS q 24 HR - [...] Patient. 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 Last discharge within 30 days: No Advance Directive: Current Advance Directive: Health Care Power of Vice President Financial In Chart: No Heel Pricker Attempted to Assist with AD Completion: Yes [...] None Has the Patient Been in a Intermediate Facility in the Past 30 days?: No SOCIAL: Living Arrangements: Home Lives With: Spouse Financial Resources: Retired;Employed Primary Contact: Extended Emergency Contact Information Primary Emergency Contact: Travis Hensley Mobile Relation: Daughter Secondary Emergency Contact: Derrek Jacob Mobile Relation: Spouse Supportive Patient Contact:: Yes [...] Psychosocial Needs: None FREEDOM OF CHOICE EXPLAINED: [place] of Choice Given: No Reason Not Given: Unable to complete with this assessment - revisit POTENTIAL TRANSITION PLANS Home Patient in ICU; awaiting transfer back to [facility]. Spoke with patient's daughter Travis. Patient admitted yesterday from [facility] due to SOB. Spouse in ICU on ventilator. [place]; baby sits grandchildren services tech. Per daughter, patient very independent. CM to follow for discharge needs. SIGNATURE: Raisa Bueno RN PATIENT NAME: Bo Jacob DATE: April 12, 2021 TIME: 7:55 AM PAGER/CONTACT #: [phone] NoteHNO ID: [id number] Author: Sukumar Castellon MD Service: ? Author Type: Physician Type: Progress Notes Filed: 04/12/2021 6:21 AM Note Text: INTERNAL MEDICINE PROGRESS NOTES Patient Name: Bo Jacob DATE of SERVICE: 04/12/2021 TIME of SERVICE: 6:19 AM Attending Physician: Rolo Oates MD Interval HPI: Patient feels her [...] 100 mg in NaCl 0.9% 250 mL Vial-Mate/ADD-Ronda 100 mg INTRAVENOUS q 24 HR - [...] Patient. Total time caring/evaluating patient was 30 minutes.[facility]08-24-2021 NoteHNO ID: [id number] Author: Yazmin Greene APRN.CNP Service: Critical Care [...] SIGNATURE: Yazmin Greene APRN.CNP PATIENT NAME: Bo Jacob DATE: April 11, 2021 TIME: 8:09 [facility]08-24-2021 NoteHNO ID: [id number] Author: Rolo Oates MD Service: Pulmonary Disease [...] in the 24 hours ending 04/11/21 1007 NIB FINISHER (Renal Replacement Therapy): None Can Patient Receive [...] SIGNATURE: Rolo Oates MD PATIENT NAME: Bo Jacob DATE: April 11, 2021 TIME: 10:07 AM [...] Signature: Rolo Oates Date: 04/11/2021 Time: 10:09 AM[facility]-2021 NoteHNO ID: [id number] Author: Akshat Julien RN Service: Nursing Author Type: Registered Nurse Type: Nursing Progress Note Filed: 04/15/2021 9:04 AM Note Text: AANDOx3 10 back and chest pain from coughing. Gave report to FLIGHT DATA TECHNICIAN, patient transferred.[facility]08-24-2021 NoteHNO ID: [id number] Author: Sukumar Castellon MD Service: ? Author Type: Physician Type: Progress Notes Filed: 04/11/2021 7:34 AM Note Text: INTERNAL MEDICINE PROGRESS NOTES Patient Name: Bo Jacob DATE of SERVICE: 04/11/2021 TIME of SERVICE: [...] 100 mg in NaCl 0.9% 250 mL Vial-Mate/ADD-Ronda 100 mg INTRAVENOUS q 24 HR - [...] Patient. Total time caring/evaluating patient was 30 minutes.[facility] Author Wu Augustine [facility] December 21, 2023 11:14am Note Date/Time December 21, 2023 10:44a m [facility] Medical Records Department [address] [place] [address] Emergency Department Summary 12/21/23 MR#: [id number] Acct: [id number] Name: BO JACOB Rep #:[id number] : 1955 68 From: Wu Augustine MD [...] Prior similar symptoms: No Recent [facility] Medical History Alcohol use Ambulates with cane [...] Reaction Status Date / Time acetaminophen [From [place]] Allergy Intermediate Rash Verified 12/21/23 10:27 adhesive tape Allergy Intermediate Hives Verified 12/21/23 10:26 hydrocodone [From [place]] Allergy Intermediate Rash Verified 12/21/23 10:27 oxycodone [...] 1-2 times per week duration: 15-30 minutes/day frankie/scientologist: Non-Hinduism/Independent seatbelt use: always do you feel safe [...] 25 mg PO DAILY Qty: 30 11RF kojiahfvcfnk-rmzp-oribb acid 1 EACH tablet 1 ea PO [...] Staff] - As Needed Loan Dias NP, DRAWING TENDER-C [Primary Care Provider] - As Needed Disposition Disposition: Home, Self Care What to do if you have Problems For any increased pain, shortness of breath, bleeding, nausea or vomiting, chestpain, or any unexpected problems, contact your Primary Care Provider. Call [facility] ([phone]) or report to the closest Emergency Room. Call 911 if necessary. 12/21/23 1114 <Electronically signed by Wu Augustine MD> Cosigner Signature (if applicable): CC: KEYA Dias ~ Signed [facility] Work Phone: Discharge summary Author Rob Guallpa [facility] Note Date/Time April 04, 2025 4: 01am [facility] Medical Records Department [address] [place] [address] Emergency Department Summary 04/04/25 MR#: [id number] Acct: [id number] Name: BO JACOB Rep #:[id number] : 1955 69 From: Rob Guallpa MD PCP: KEYA Reaves Status:REG ER Location: ED HPI History of Present Illness Chief Complaint: Chest Pain Informant: patient and family Narrative Narrative: 69-year-old female presenting with substernal chest pressure that has basically been there all day this past day. Not worse with exertion, nonpleuritic. Leaning forward makes it feel better, so she tries to sleep that way when she getsthis. The last time she had it was 3 days ago, she was driving, she felt like her heart was racing and her watch told her that her heart rate was in the 120s,but then it all resolved together after half an hour or more. Today she has felt her heart racing a little bit, but not like it did that day. She does not feel like that right now. She states at times the discomfort has radiated into her upper back or her neck like it is right now the latter. Earlier she tried aclonazepam but it did not help. She also tried drinking some Mylanta but it didnot do anything. She denies any nausea, vomiting, abdominal pain. No leg pain or swelling. She is anticoagulated on Eliquis because of having A-fib with RVR earlier in the year which was thought to be due to pericarditis which the patient had about a week after PFO closure in August, which was found because she had a stroke at the end of last year. She had a cardioversion out of A-fib in September, she had a couple of bouts of paroxysmal A-fib after that but no other episodes that she knows of although she does not know the cause of her heart rate going up to the 120s on occasion. She does have a loop recorder device and follows with cardiology here at the [facility]. She states her spearer thinks that the pressure she has been having has been chronic pericarditis. [facility] Medical History Pericardial effusion Atrial fibrillation with RVR Acute pericarditis Chest pain Paroxysmal A-fib Use of aromatase inhibitors Screening for osteoporosis Elevated alkaline phosphatase level History of transesophageal echocardiography (BLACK) PFO (patent foramen ovale) Wears glasses Marijuana [...] Ventricular trigeminy History of ectopic Esophageal reflux Home Medications ?Medication ?Instructions ?Recorded ?Last Taken ?Type aspirin 81 mg tablet,delayed 81 mg PO DAILY 07/18/21 0 11/28/23 History release (Corky Low Dose Aspirin) cholecalciferol (vitamin D3) 125 250 mcg PO DAILY 09/1112/02/23 History mcg (5,000 unit) tablet (Vitamin D3) hydroxyzine HCl 10 mg tablet 10 mg PO TID-QID PRN anxi ety #90 04/29/24 Unknown Rx tabs apixaban 5 mg tablet (Eliquis) 5 mg PO BID 10/08/24 Un known History pantoprazole 20 mg tablet,delayed 20 mg PO QDAY #90 ta bs 10/28/24 Unknown Rx release (Protonix) exemestane 25 mg tablet 25 mg PO DAILY #90 TABLETS 0 12/14/24 Unknown Rx ascorbate calcium (vitamin C) 500 500 mg PO QDAY 03/10 Unknown History mg tablet calcium acetate 667 mg tablet 667 mg PO ONCE 03/10/25 Unknown History clonazepam 0.5 mg tablet 0.5 mg PO BID PRN anxiety Unknown History diltiazem HCl 180 mg 180 mg PO QDAY #90 caps 02/17 01/10 Unknown Rx capsule,extended release 24 hr (Cardizem CD) Allergy/AdvReac Type Severity Reaction Status Date / Time adhesive tape Allergy Intermediate Hives Verified 04/04/25 01:04 oxycodone Allergy Intermediate Rash Verified 04/04/25 01:04 anastrozole AdvReac Severe joint Verified 04/04/25 01:04 pain, anxiety, hot flashes Family History Mother CVA (cerebral vascular accident) Hypertension Grandmother CVA (cerebral vascular accident) Aunt CVA (cerebral vascular accident) Father COPD (chronic obstructive pulmonary disease) Brother Bone cancer Prostate cancer Surgical History H/O removal of cyst History of colonoscopy History of left heart catheterization (09/19/20) History of lumpectomy of right breast (04/28/20) History of removal of Port-a-Cath History of surgical closure of patent foramen ovale (PFO) History of tonsillectomy and adenoidectomy Previous section [...] 1-2 times per week duration: 15-30 minutes/day frankie/scientologist: Non-Hinduism/Independent seatbelt use: always do you feel safe at home: Yes ROS ROS ED Constitutional Constitutional ED: Denies chills or fever(s) Eyes Eyes: Denies change in vision or diplopia ENT ENT ED: Denies rhinorrhea or sore throat Cardiovascular Cardiovascular: Reports as per HPI and chest pain; Denies leg edema or syncope Respiratory/Chest Respiratory/Chest: Denies cough or dyspnea Gastrointestinal Gastrointestinal: Denies abdominal pain, diarrhea, nausea or vomiting Genitourinary Genitourinary ED: Denies dysuria or hematuria Musculoskeletal Musculoskeletal: Denies back pain or neck pain Integumentary Denies abscess or rash Neurologic Neurologic: Denies headache(s), paresthesias or weakness Psychiatric Psychiatric: Denies suicidal thoughts EXAM Physical Exam Const Vital Signs: 04/04/25 01:05 04/04/25 01:12 04/04/25 02:00 Temperature 97 F L Temperature Source Oral Pulse Rate 71 73 Respiratory Rate 20 H 20 H Blood Pressure 156/85 H 127/90 H Blood Pressure Mean 108 102 Pulse Ox 95 95 Oxygen Delivery Method Room Air Room Air 04/04/25 03:00 Temperature Temperature Source Pulse Rate 69 Respiratory Rate 17 Blood Pressure 129/90 H Blood Pressure Mean 103 Pulse Ox 98 Oxygen Delivery Method Room Air Positive well nourished and well developed General Appearance ED: well developed and NAD HEENT Reports moist mucous membranes normocephalic and atraumatic Eyes PERRL and EOMs intact bilaterally Neck full ROM and supple Resp normal respiratory effort and clear to auscultation bilaterally Cardio regular rate, regular rhythm and no murmurs Peripheral Pulses: pulses 2+ throughout GI non-tender and non-distended Auscultation: normoactive bowel sounds Palpation: soft Back/Spine no CVA tenderness General Back: other FROM Extremity normal to inspection General Extremety ED: Negative for edema, pulses abnormal or tenderness General Extremity: Negative for edema or pulses abnormal Neuro oriented x3, CN's II-XII intact bilaterally and no sensory deficits noted Sensorium / Orientation: awake and alert Motor Exam: strength 5/5 throughout Psych mental status grossly normal Skin no rashes or lesions noted and no wounds Heart Score History: Slightly/Non-Suspicious ECG: Normal Age: >/= 65 years Risk Factors: 1 or 2 Risk Factors Troponin: </= Normal Limit Score: 3 MDM MDM MDM Narrative Medical decision making narrative: Patient's EKG is unremarkable while she is having pressure. Given she has been told possible esophageal spasm in the past is causing this, and may be related to dysrhythmias and/or pericarditis, we did try a dose of Levsin/hyoscyamine to see if that would help, I did not make a big difference but on reevaluation she states although the pressure is present it is mild. Nonpleuritic. I do not think she needs to be worked up for pulmonary embolus here given her lack of hypoxemia or pleuritic discomfort, and the fact that she is already chronically anticoagulated. Furthermore she states when she leans forward it feels better. 1 view chest x-ray is unremarkable, but this in the EKG lack of findings do not rule out the possibility of pericarditis although admittedly her presentation isatypical for that. One could consider steroid treatment, but before subjecting her to prednisone, going to have her follow-up with cardiology first since most of the time these episodes do not last very long and it may resolve on its own soon. She has 2 sequential troponin measurements that are both in the single digits and unchanged, for a delta of 0 and the rest of her workup is unremarkable, ruling out acute coronary syndrome at this time. Stable for discharge and close outpatient follow-up with cardiology, she has a loop recorder so they may be able to extract information about her episodes of tachycardia, none of which occurred while she was here on the monitor. Lab Data Attestation: I reviewed the patient's lab results. Labs: Laboratory Results - last 24 hr 04/04/25 04/04/25 01:25 03:29 WBC 7.3 RBC 4.60 Hgb 14.8 Hct 42.9 MCV 93.3 MCH 32.2 H MCHC 34.5 RDW Std Deviation 42.6 RDW Coeff of Richelle 12.4 Plt Count 255 MPV 9.4 Immature Gran % (Auto) 0.500 Neut % (Auto) 57.9 Lymph % (Auto) 29.4 Worth % (Auto) 6.6 Eos % (Auto) 4.5 Baso % (Auto) 1.1 H Absolute Neuts (auto) 4.2 Absolute Lymphs (auto) 2.15 Nucleated RBC % 0 Sodium 143 Potassium 3.7 Chloride 105 Carbon Dioxide 24.3 Anion Gap 14 BUN 18 Creatinine 0.88 Estim Creat Clear Calc 59.54 Est GFR (MDRD) Non-Af 71 BUN/Creatinine Ratio 20.6 H Glucose 103 H Calcium 9.6 Troponin T High Sens 8 Troponin T Hi Sens 2 Hr 8 Rhythm Strip Rhythm Strip: Sinus Rhythm Rate: 70 Ectopy: None EKG Initial EKG: Attestation: I personally reviewed and interpreted this EKG as follows: Interpretation: Sinus Rhythm, No Acute Injury Pattern and LAFB Comments: otherwise nml EKG Prior EKG tracings: available for review Prior: Unchanged Discharge Plan Triage Chief Complaint: Chest Pain ED Provider: Rob Guallpa Dx/Rx/DC Orders Clinical Impression: Chest pressure, Paroxysmal tachycardia, unspecified, Anticoagulated on apixaban Instructions: ED Chest Pain, Uncertain Cause Prescriptions: No Action aspirin [Corky Low Dose Aspirin] 81 mg tablet,delayed release (DR/EC) 81 mg PO DAILY exemestane 25 mg tablet 25 mg PO DAILY Qty: 90 1RF diltiazem HCl [Cardizem CD] 180 mg capsule,extended release 24hr 180 mg PO QDAY Qty: 90 1RF ascorbate calcium (vitamin C) 500 mg tablet 500 mg PO QDAY calcium acetate 667 mg tablet 667 mg PO ONCE clonazepam 0.5 mg tablet 0.5 mg PO BID PRN (Reason: anxiety) hydroxyzine HCl 10 mg tablet 10 mg PO TID-QID PRN (Reason: anxiety) Qty: 90 3RF Eliquis 5 mg tablet 5 mg PO BID cholecalciferol (vitamin D3) [Vitamin D3] 125 mcg (5,000 unit) tablet 250 mcg PO DAILY pantoprazole [Protonix] 20 mg tablet,delayed release (DR/EC) 20 mg PO QDAY Qty: 90 3RF Primary Care Provider: Loan Dias NP Referrals: Hossein Josue MD [Med Staff - Active Staff] - As soon as possible Loan Dias NP, DRAWING TENDER-C [Primary Care Provider] - Print Language: Colombian Disposition Disposition: Home, Self Care What to do if you have Problems For any increased pain, shortness of breath, bleeding, nausea or vomiting, chestpain, or any unexpected problems, contact your Primary Care Provider. Call [facility] ([phone]) or report to the closest Emergency Room. Call 911 if necessary. 04/04/25 0401 <Electronically signed by Rob Guallpa MD> Cosigner Signature (if applicable): CC: KEYA Dias ~ Signed [facility] Work Phone: Evaluation note* Diagnosis Onset [...] joint, left acute Essential (primary) hypertension chronic [facility] Work Phone: Evaluation note* Diagnosis Onset [...] resolved Screening for colon cancer a cute [facility] Work Phone: Evaluation note* Diagnosis Onset Date Resolution Status Breast cancer of lower-inner quadrant of right female breast chronic Musculoskeletal pain chronic Osteopenia chronic Breast cancer of lower-inner quadrant of right female breast chronic [facility] Work Phone: Evaluation note* Diagnosis Onset [...] Drug rash resolved Essential (primary) hypertension chronic [facility] Work Phone: Evaluation note* Diagnosis Onset [...] lower-inner quadrant of right female breast chronic [facility] Work Phone: Evaluation note* Diagnosis Onset Date Resolution Status Essential (primary) hypertension chronic Breast cancer of lower-inner quadrant of right female breast chronic Musculoskeletal pain chronic Osteopenia chronic Breast cancer of lower-inner quadrant of right female breast chronic Breast cancer of lower-inner quadrant of right female breast chronic Right knee pain noneactive Left breast lump acute [facility] Work Phone: Evaluation note* Diagnosis Onset Date Resolution Status Breast cancer of lower-inner quadrant of right female breast chronic Left knee DJD acute Breast cancer of lower-inner quadrant of right female breast chronic Hyperlipidemia acute Essential (primary) hypertension chronic Essential (primary) hypertension chronic [facility] Work Phone: Evaluation note* Diagnosis Onset [...] DJD acute Sciatica of left side acute [facility] Work Phone: Evaluation note* Diagnosis Onset [...] cyst, left acute Lateral meniscus tear acute [facility] Work Phone: Evaluation note* Diagnosis Onset [...] cyst, left acute Lateral meniscus tear acute [facility] Work Phone: Evaluation note* Diagnosis Onset [...] cyst, left acute Lateral meniscus tear acute [facility] Work Phone: Evaluation note* Diagnosis Onset [...] meniscus tear acute Orthopedic aftercare noneact gemma [facility] Work Phone: Evaluation note* Diagnosis Preoperative [...] with cerebral [facility] Pre[facility] examination- Primary Preoperative [...] [facility] septal [facility] Diagnosis Preoperative examination- Primary Preoperative examination, [...] atrial septal defect documented in this encounter [facility] note* Diagnosis Preoperative examination- Primary Preoperative [...] atrial septal defect documented in this encounter [facility] note* Diagnosis Preoperative examination- Primary Preoperative [...] atrial septal defect documented in this encounter [facility] note* Diagnosis Onset Date Resolution Status Breast cancer of lower-inner quadrant of right female breast chronic Left knee DJD acute Breast cancer of lower-inner quadrant of right female breast chronic Hyperlipidemia acute Essential (primary) hypertension chronic [facility] Work Phone: Evaluation note* Diagnosis Preoperative [...] atrial septal defect documented in this encounter [facility] note* Diagnosis Preoperative examination- Primary Preoperative [...] atrial septal [facility] Diagnosis Preoperative examination- Primary Preoperative examination, [...] atrial septal defect [facility] Diagnosis Preoperative examination- Primary Preoperative examination, [...] (HCC) Atrial fibrillation [facility] Diagnosis Preoperative examination- Primary Preoperative examination, [...] specified cardiac dysrhythmias [facility] Diagnosis Preoperative examination- Primary Preoperative examination, [...] recorder present- [facility] Pre[facility] examination- Primary Preoperative examination, [...] Pain in limb documented in this encounter [facility] note* Diagnosis Preoperative examination- Primary Preoperative [...] of right foot- Primary Plantar fascial fibromatosis Equinus contracture of right ankle documented in this encounter [facility] Discharge instructions Additional Instructions Please follow-up outpatient.[facility] Work Phone: Reason for referral (narrative)* Outpatient Procedure (Routine) - New Request Specialty Diagnoses / Procedures Referred By Contac t [facility] Diagnoses PFO (patent foramen ovale) Procedures ECHO TRANSESOPHAGEAL ECHO TRANSESOPHAG R-T 2D W/PRB IMG SONAM I&R Smith Lopez MD [address] [place] [address] [facility] [place] [address] [place] [address] Referral ID Status Reason Start Date Expiration Date Visits Requested Visits Authorized [id number] New Request Auto-Generat ed Referral 06/24/2024 06/24/2025 1 1 [facility] for referral (narrative)* Outpatient Procedure (Routine) - New Request Specialty Diagnoses / Procedures Referred By Contac t Ref[facility] Diagnoses PFO (patent foramen ovale) Procedures ECHO TRANSESOPHAGEAL ECHO TRANSESOPHAG R-T 2D W/PRB IMG ACQUISJ I&R Vandana Goldstein APRN.CNP [address] [place] [address] [facility] [place] [address] [place] [address] Referral ID Status Reason Start Date Expiration Date Visits Requested Visits Authorized [id number] New Request Auto-Generat ed Referral 07/23/2024 07/23/2025 1 1 [facility] for referral (narrative)* Outpatient Procedure (Routine) - New Request Specialty Diagnoses / Procedures Referred By Contac t Referred To Contact [facility] Diagnoses PFO (patent foramen ovale) Procedures ECHO TRANSESOPHAGEAL ECHO TRANSESOPHAG R-T 2D W/PRB IMG ACQUISCyril I&R Smith Lopez MD [address] [place] [address] [facility] [place] [address] [place] [address] Referral ID Status Reason Start Date Expiration Date Visits Requested Visits Authorized [id number] New Request Auto-Generat ed Referral 07/26/2024 07/26/2025 1 1 [facility] for referral (narrative)No reason for referral [facility]: Summary Purpose Family History No [...] Date/ Time Advance Directives on File No 2020 10:33am Name of Medical Power of Vice President Financial Derrek Jacob March 29, 2021 10:33am Advance Directives Yes June 27, 2021 10:32am Living Will Yes January 21, 2022 1 1:38am Power of Vice President Financial Yes January 21, 2022 11:38am Advance Directive Response Recorded Date/ Time Advance Directives on File No 2020 10:33am Name of Medical Power of Vice President Financial Derrek Jacob March 29, 2021 10:33am Name of Medical Power of Vice President Financial TRAVIS HENSLEY January 21, 2022 11:38am Name of Medical Power of Vice President Financial [facility] TAIWO EHNSLEY May 16, 2022 2:56pm Advance Directives Yes January 25 7:55pm Living Will Yes May 16, 2022 2:56pm Power of Vice President Financial Yes April 2:56pm Advance Directive Response Recorded Date/ Time Advance Directives Yes January 25 7:55pm Living Will Yes May 16, 2022 2:56pm Power of Vice President Financial Yes April 2:56pm Advance Directive Response Recorded Date/ Time Advance Directives on File No Augus t 11th, 2021 10:33am Name of Medical Power of Vice President Financial Derrek Jacob March 29, 2021 10:33am Advance Directives Yes January 25 7:55pm Living Will Yes May 16, 2022 2:56pm Power of Vice President Financial Yes April 2:56pm Advance Directive Response Recorded Date/ Time Advance Directives Yes January 25 6:55pm Living Will Yes May 16, 2022 1:56pm Power of Vice President Financial Yes April 1:56pm Advance Directive Response Recorded Date/ Time Advance Directives on File No Augus t 2020 9:33am Name of Medical Power of Vice President Financial Derrek Jacob March 29, 2021 9:33am Advance Directives Yes January 25 6:55pm Living Will Yes May 16, 2022 1:56pm Power of Vice President Financial Yes April 1:56pm Advance Directive Response Recorded Date/ Time Advance Directives on File No Augus t 2020 10:33am Name of Medical Power of Vice President Financial Derrek Jacob March 29, 2021 10:33am Name of Medical Power of Vice President Financial IZABELLA CASTAÑEDAI Jasper AYDEN November 18, 2023 1:12pm Advance Directives Yes January 25 7:55pm Living Will Yes November 18, 2023 1:12pm Power of Vice President Financial Yes November 17 1:12pm Advance Directive Response Recorded Date/ Time Advance Directives on File No Augus t 2020 10:33am Name of Medical Power of Vice President Financial Derrek Jacob March 29, 2021 10:33am Name of Medical Power of Vice President Financial MARIOA MOISES CASTAÑEDAI Jasper PELROSEMARIE November 18, 2023 1:12pm Name of Medical Power of Vice President Financial Travis Hensley December 12, 2023 12:44pm Advance Directives Yes January 25 7:55pm Living Will Yes December 12, 2023 12:44pm Power of Vice President Financial Yes December 11 12:44pm Advance Directive Response Recorded Date/ Time Advance Directives on File No Augus t 2020 10:33am Name of Medical Power of Vice President Financial Derrek Jacob March 29, 2021 10:33am Name of Medical Power of Vice President Financial POA DGTR TAIWO HENSLEY November 18, 2023 1:12pm Name of Medical Power of Vice President Financial Travis Hensley December 12, 2023 12:44pm Name of Medical Power of Vice President Financial TRAVIS HENSLEY December 21, 2023 10:32am Advance Directives Yes January 25 7:55pm Living Will Yes December 21, 2023 10 :32am Power of Vice President Financial Yes December 21, 2023 10:32am Date Activated Date Inactivated Comments 04/19/2024 4:04 PM Date Activated Date Inactivated Comments 04/19/2024 4:04 PM 04/23/2024 7:23 PM Question Answer Comments Full Code Order Discussed With: Patient Advance Directive Response Recorded Date/ Time Living Will Yes December 21, 2023 10 :32am Do you have a Healthcare Power of Vice President Financial? Yes December 21, 2023 10:32am Advance Directives on File No Augus t 2020 10:33am Living Will Yes March 29 10:33am Do you have a Healthcare Power of Vice President Financial? Yes March 29, 2021 10:33am Name of Medical Power of Vice President Financial Derrek Jacob March 29, 2021 10:33am Advance Directives Yes January 25 7:55pm Advance Directive Response Recorded Date/ Time Advance Directives on File No Augus t 2020 10:33am Living Will Yes March 29 10:33am Do you have a Healthcare Power of Vice President Financial? Yes March 29, 2021 10:33am Name of Medical Power of Vice President Financial Derrekobdulio Omerdino March 29, 2021 10:33am Advance Directives Yes January 25 7:55pm Advance Directive Response Recorded Date/ Time Advance Directives on File No Augus t 2020 10:33am Living Will Yes March 29 10:33am Do you have a Healthcare Power of Vice President Financial? Yes March 29, 2021 10:33am Name of Medical Power of Vice President Financial Derrek Jacob March 29, 2021 10:33am Do you have a Healthcare Power of Vice President Financial? Yes April 04, 2025 1:05am Advance Directives Yes January 25 7:55pm Advance Directive Response Recorded Date/ Time Do you have a Healthcare Power of Vice President Financial? Yes April 04, 2025 1:05am Advance Directives Yes January 25 7:55pm Procedure Findings Note HNO ID: [id number] Author: Cyril Rocha Service: ? Author Type: Anesthesiologist Type: Anesthesia Procedure Notes Filed: 04/22/2020 4:19 PM Note Text: ANESTHESIOLOGY PROCEDURE NOTE Airway General Information Procedure Start Time/Medication Administration: 04/22/2020 12:50 PM Procedure End Time: 04/22/2020 12:51 PM Patient location during procedure: OR Timeout Performed Pre-procedure: timeout performed Consent Obtained: Yes Patient identity confirmed: patient and arm band Staffing Anesthesiologist: Raymond Rocha MILITARY PILOT: Deng Barlow Performed by: BRITTON Indications and Patient Condition Preoxygenated: yes Patient position: sniffing Manual In-Line Stabilization: Yes Difficult Mask: No Indications for airway management: anesthesia anesthesia circuit Method: asleep Airway Accessory: LMA Final Airway Details Final airway type: supraglottic airway Number of attempts at approach: 1 Final Supraglottic Airway: Size 4 Airway not difficult SIGNATURE: Deng Barolw APRN.MILITARY PILOT PATIENT NAME: Ther (more content not included)... [...] pm ESTABLISH March 12, 2025 11:0 7am Chief Complaint Admit Date 12WKS LABS December 14, 2024 1:5 8pm ONC/HEM December 14, 2024 2:1 5pm LEFT KNEE March 10, 2025 1:40 pm ESTABLISH March 12, 2025 11:0 7am chest pressure April 04, 2025 1: 03am Reason for Visit Admit Date Breast cancer of lower-inner quadrant of right female breast December 14, 2024 1:58pm Osteopenia December 14, 2024 1:5 8pm Anxiety as acute reaction to gross stres s December 14, 2024 2:15pm Encounter for chemotherapy management Ap 2024 2:15pm Encounter for education December 14, 2024 2:15pm Rash December 14, 2024 2:1 5pm Urinary frequency December 14, 2024 2:1 5pm Breast cancer of lower-inner quadrant of right female breast December 14, 2024 2:15pm Osteopenia December 14, 2024 2:1 5pm Chest pressure December 14, 2024 2:1 5pm Drug rash December 14, 2024 2:1 5pm Left knee DJD March 10, 2025 1:40 pm Acute pericarditis March 12, 2025 11:0 7am Atrial fibrillation with RVR March 12, 2025 11:07am Chief Complaint Admit Date 12WKS LABS December 14, 2024 1:5 8pm ONC/HEM December 14, 2024 2:1 5pm LEFT KNEE March 10, 2025 1:40 pm ESTABLISH March 12, 2025 11:0 7am chest pressure April 04, 2025 1: 03am Hospital April 08, 2025 9: 19am Chief Complaint Admit Date LEFT KNEE March 10, 2025 1:40 pm ESTABLISH March 12, 2025 11:0 7am chest pressure April 04, 2025 1: 03am Hospital April 08, 2025 9: 19am medication refills April 13, 2025 3: 02pm Pacer Check Remote April 24, 2025 12:42pm Reason for Visit Admit Date Left knee DJD March 10, 2025 1:40 pm Acute pericarditis March 12, 2025 11:0 7am Atrial fibrillation with RVR March 12, 2025 11:07am Chest pain April 08, 2025 9: 19am Anxiety April 13, 2025 3: 02pm Essential (primary) hypertension April 13, 2025 3:02pm Additional Source Comments INFORMATION SOURCE (unrecogn ized section and content) DATE CREATED AUTHOR [facility] DATE CREATED AUTHOR AUTHOR'S ORGANIZ ATION 03/17/2018 [facility] DATE CREATED AUTHOR AUTHOR'S ORGANIZ ATION 05/30/2018 [facility] DATE CREATED AUTHOR AUTHOR'S ORGANIZ ATION 06/10/2020 [facility] DATE CREATED AUTHOR AUTHOR'S ORGANIZ ATION 04/25/2021 [facility] DATE CREATED AUTHOR AUTHOR'S ORGANIZ ATION 04/19/2024 [facility] DATE CREATED AUTHOR AUTHOR'S ORGANIZ ATION [facility] DATE CREATED AUTHOR AUTHOR'S ORGANIZ ATION 05/06/2025 [facility] Goals (unrecognized section and content) Goals may [...] Inactive Member Role Status Dates Loan Dias DRAWING TENDER, DRAWING TENDER-C Primary Care Provider Active Dr. João Kong DO Attending Provider Active Team Status: Inactive Member Role Status Dates Loan Dias DRAWING TENDER, DRAWING TENDER-C Primary Care Provider, Referr ing Provider Active Dr. Antonia Escalante MD Attending Provider Active Team Status: Inactive Member Role Status Dates Loan Dias DRAWING TENDER, DRAWING TENDER-C Primary Care Provider, Referr ing Provider Active Ashli Rosado PA, PA Attending Provider Active Team Status: Inactive Member Role Status Dates Loan Dias DRAWING TENDER, DRAWING TENDER-C Primary Care Provider, Referr ing Provider Active Dr. Raymond Lagos DO Attending Provider Active Team Status: Inactive Member Role Status Dates Loan Dias DRAWING TENDER, DRAWING TENDER-C Primary Care Provider Active Dr. Nico Hook MD Attending Provider Active Team Status: Active Member Role Status Dates Dr. Raymond Lagos DO Attending Provider, Other Prov ider Active Dr. Ashley Luna MD Primary Care Provider, Referrin g Provider Active Team Status: Inactive Member Role Status Dates Loan Dias DRAWING TENDER, DRAWING TENDER-C Primary Care Pr ovider, Attending Provider, Referring Provider Active Team Status: Active Member Role Status Dates Dr. Antonia Escalante MD Attending Provider Active Dr. Yogesh Haque MD Referring Provider Active Dr. João Kong DO Other Provider Active Loan Dias DRAWING TENDER, DRAWING TENDER-C Primary Care Provider Active Team Status: Inactive Member Role Status Dates Loan Dias DRAWING TENDER, DRAWING TENDER-C Primary Care Provider Active Ashli Rosado PA, PA Attending Provider Active Team Status: Inactive Member Role Status Dates Loan Dias DRAWING TENDER, DRAWING TENDER-C Primary Care Provider Active Dr. Raymond Lagos DO Attending Provider, Referring Provider Active Team Status: Inactive Member Role Status Dates Loan Dias DRAWING TENDER, DRAWING TENDER-C Primary Care Provider Active Dr. Antonia Escalante MD Attending Provider, Referrin g Provider Active Team Status: Inactive Member Role Status Dates Dr. Raymond Lagos DO Attending Provider Active Dr. Ashley Luna MD Primary Care Provider, Referrin g Provider Active Team Status: Active Member Role Status Dates Loan Dias DRAWING TENDER, DRAWING TENDER-C Primary Care Provider Active Team Status: Inactive Member Role Status Dates Loan Dias DRAWING TENDER, DRAWING TENDER-C Primary Care Provider, Referr ing Provider Active Dr. João Kong DO Attending Provider Active Team Status: Inactive Member Role Status Dates Loan Dias DRAWING TENDER, DRAWING TENDER-C Primary Care Provider, Referr ing Provider Active Verónica Lopez DRAWING TENDER, DRAWING TENDER-C Attending Provider Active Team Status: Inactive Member Role Status Dates Loan Dias DRAWING TENDER, DRAWING TENDER-C Primary Care Provider, Referr ing Provider Active Dr. Nico Hook MD Attending Provider Active Team Status: Active Member Role Status Dates Loan Dias DRAWING TENDER, DRAWING TENDER-C Primary Care Provider Active Lisa Harper Attending Provider Active Team Status: Active Member Role Status Dates Loan Dias DRAWING TENDER, DRAWING TENDER-C Primary Care Provider Active Dr. Nico Hook MD Attending Provider Active Team Status: Inactive Member Role Status Dates Loan Dias DRAWING TENDER, DRAWING TENDER-C Primary Care Provider Active Dr. Nico Hook MD Attending Provider, Referring Pro vider Active Team Status: Inactive Member Role Status Dates Loan Dias DRAWING TENDER, DRAWING TENDER-C Primary Care Provider Active Verónica Lopez DRAWING TENDER, DRAWING TENDER-C Attending Provider, Referring Provider Active Team Status: Inactive Member Role Status Dates Loan Dias DRAWING TENDER, DRAWING TENDER-C Primary Care Provider, Referr ing Provider Active Dr. Dia Tobin MD Attending Provider Active Team Status: Inactive Member Role Status Dates Loan Dias DRAWING TENDER, DRAWING TENDER-C Primary Care Provider Active Dr. Dia Tobin MD Attending Provider, Referring Provider Active Team Status: Inactive Member Role Status Dates Loan Dias DRAWING TENDER, DRAWING TENDER-C Primary Care Provider, Attend ing Provider Active Team Status: Inactive Member Role Status Dates Loan Dias DRAWING TENDER, DRAWING TENDER-C Primary Care Provider Active Dr. Matthew Fajardo MD Emergency Provider Active Team Status: Inactive Member Role Status Dates Loan Dias DRAWING TENDER, DRAWING TENDER-C Primary Care Provider Active Dr. Matthew Fajardo MD Attending Provider, Emergency Pro vider Active Team Status: Inactive Member Role Status Dates Loan Dias DRAWING TENDER, DRAWING TENDER-C Primary Care Provider Active Dr. Wu Augustine MD Emergency Provider Active Employee Benefits Specialist Relationship Specialty Start Date End Date Loan Dias ARTIST BLACKSMITH.SERVICE ORDER TAKER [address] [place] [address] PCP - General Family Medicine 05/18/17 Employee Benefits Specialist Relationship Specialty Start Date End Date Loan Dias ARTIST BLACKSMITH.SERVICE ORDER TAKER [address] [place] [address] PCP - General Family Medicine 05/18/17 Employee Benefits Specialist Relationship Specialty Start Date End Date Loan Dias, ARTIST BLACKSMITH.SERVICE ORDER TAKER [address] [place], [place] [id number] PCP - General Family Medicine 05/18/17 Employee Benefits Specialist Relationship Specialty Start Date End Date Loan Dias, ARTIST BLACKSMITH.SERVICE ORDER TAKER [address] [place], [place] [phone] PCP - General Family Medicine 05/18/17 Employee Benefits Specialist Relationship Specialty Start Date End Date Loan Dias, ARTIST BLACKSMITH.SERVICE ORDER TAKER [address] [place] [address] PCP - General Family Medicine 05/18/17 Employee Benefits Specialist Relationship Specialty Start Date End Date Loan Dias, ARTIST BLACKSMITH.SERVICE ORDER TAKER [address] [place] [address] PCP - General Family Medicine 05/18/17 Employee Benefits Specialist Relationship Specialty Start Date End Date Loan Dias, ARTIST BLACKSMITH.SERVICE ORDER TAKER [address] [place] [address] PCP - General Family Medicine 05/18/17 Employee Benefits Specialist Relationship Specialty Start Date End Date Loan Dias, ARTIST BLACKSMITH.SERVICE ORDER TAKER [address] [place] [address] PCP - General Family Medicine 05/18/17 Employee Benefits Specialist Relationship Specialty Start Date End Date Loan Dias, ARTIST BLACKSMITH.SERVICE ORDER TAKER [address] [place] [address] PCP - General Family Medicine 05/18/17 Employee Benefits Specialist Relationship Specialty Start Date End Date Loan Dias, ARTIST BLACKSMITH.SERVICE ORDER TAKER [address] [place] [address] PCP - General Family Medicine 05/18/17 Employee Benefits Specialist Relationship Specialty Start Date End Date Loan Dias, ARTIST BLACKSMITH.SERVICE ORDER TAKER [address] [place] [address] PCP - General Family Medicine 05/18/17 Employee Benefits Specialist Relationship Specialty Start Date End Date Loan Dias, ARTIST BLACKSMITH.SERVICE ORDER TAKER [address] [place] [address] PCP - General Family Medicine 05/18/17 Employee Benefits Specialist Relationship Specialty Start Date End Date Loan Dias, ARTIST BLACKSMITH.SERVICE ORDER TAKER [address] [place] [address] PCP - General Family Medicine 05/18/17 Employee Benefits Specialist Relationship Specialty Start Date End Date Loan Dias, ARTIST BLACKSMITH.SERVICE ORDER TAKER [address] [place] [address] PCP - General Family Medicine 05/18/17 Employee Benefits Specialist Relationship Specialty Start Date End Date Loan Dias, ARTIST BLACKSMITH.SERVICE ORDER TAKER [address] [place] [address] PCP - General Family Medicine 05/18/17 Employee Benefits Specialist Relationship Specialty Start Date End Date Loan Dias, ARTIST BLACKSMITH.SERVICE ORDER TAKER [address] [place] [address] PCP - General Family Medicine 05/18/17 Employee Benefits Specialist Relationship Specialty Start Date End Date Loan Dias, ARTIST BLACKSMITH.SERVICE ORDER TAKER [address] [place] [address] PCP - General Family Medicine 05/18/17 Team Status: Inactive Member Role Status Dates Loan Dias DRAWING TENDER, DRAWING TENDER-C Primary Care Provider Active Start: August 31, 2024 End: August 31, 2024 Loan Dias DRAWING TENDER, DRAWING TENDER-C Referring Provider Active Start: August 31, 2024 End: August 31, 2024 Dr. Raymond Lagos DO Attending Provider Active Start: August 31, 2024 End: August 31, 2024 Team Status: Inactive Member Role Status Dates Loan Dias DRAWING TENDER, DRAWING TENDER-C Primary Care Provider Active Start: August 31, 2024 End: August 31, 2024 Dr. Nico Hook MD Attending Provider Active S tart: August 31, 2024 End: August 31, 2024 Team Status: Inactive Member Role Status Dates Loanaruna Dias DRAWING TENDER, DRAWING TENDER-C Primary Care Provider Active Start: September 21, 2024 End: September 21, 2024 Loan Dias DRAWING TENDER, DRAWING TENDER-C Referring Provider Active Start: September 21, 2024 End: September 21, 2024 Verónica Lopez DRAWING TENDER, DRAWING TENDER-C Attending Provider Active Start: September 21, 2024 End: September 21, 2024 Team Status: Active Member Role Status Dates Dr. Antonia Escalante MD Attending Provider Active Start: September 21, 2024 Dr. Yogesh Haque MD Referring Provider Active Start: September 21, 2024 Dr. João Kong DO Other Provider Active Sta rt: September 21, 2024 Loan Dias DRAWING TENDER, DRAWING TENDER-C Primary Care Provider Active Start: September 21, 2024 Team Status: Inactive Member Role Status Dates Loan Arun DRAWING TENDER, DRAWING TENDER-C Primary Care Provider Active Start: October 08, 2024 End: October 08, 2024 Loan Dias DRAWING TENDER, DRAWING TENDER-C Attending Provider Active Start: October 08, 2024 End: October 08, 2024 Loan Dias DRAWING TENDER, DRAWING TENDER-C Referring Provider Active Start: October 08, 2024 End: October 08, 2024 Team Status: Inactive Member Role Status Dates Loan Dias DRAWING TENDER, DRAWING TENDER-C Primary Care Provider Active Start: October 27, 2024 End: October 27, 2024 Dr. Mariajose Barclay MD Attending Provider Active Start: October 27, 2024 End: October 27, 2024 Dr. Mariajose Barclay MD Referring Provider Active Start: October 27, 2024 End: October 27, 2024 Team Status: Inactive Member Role Status Dates Loan Dias DRAWING TENDER, DRAWING TENDER-C Primary Care Provider Active Start: October 27, 2024 End: October 27, 2024 Loan Dias DRAWING TENDER, DRAWING TENDER-C Referring Provider Active Start: October 27, 2024 End: October 27, 2024 Dr. João Kong DO Attending Provider Active Start: October 27, 2024 End: October 27, 2024 Team Status: Active Member Role Status Dates Loan Dias DRAWING TENDER, DRAWING TENDER-C Primary Care Provider Active Start: October 31, 2024 Dr. Antonia Escalante MD Attending Provider Active Start: October 31, 2024 Dr. Antonia Escalante MD Referring Provider Active Start: October 31, 2024 Team Status: Active Member Role Status Dates Loan Dias DRAWING TENDER, DRAWING TENDER-C Primary Care Provider Active Start: November 03, 2024 Dr. Antonia Escalante MD Attending Provider Active Start: November 03, 2024 Dr. Antonia Escalante MD Referring Provider Active Start: November 03, 2024 Team Status: Inactive Member Role Status Dates Loan Dias DRAWING TENDER, DRAWING TENDER-C Primary Care Provider Active Start: October 31, 2024 End: October 31, 2024 Dr. Antonia Escalante MD Attending Provider Active Start: October 31, 2024 End: October 31, 2024 Dr. Antonia Escalante MD Referring Provider Active Start: October 31, 2024 End: October 31, 2024 Team Status: Inactive Member Role Status Dates Loan Dias DRAWING TENDER, DRAWING TENDER-C Primary Care Provider Active Start: November 03, 2024 End: November 03, 2024 Dr. Antonia Escalante MD Attending Provider Active Start: November 03, 2024 End: November 03, 2024 Dr. Antonia Escalnate MD Referring Provider Active Start: November 03, 2024 End: November 03, 2024 Employee Benefits Specialist Relationship Specialty Start Date End Date Loan Dias APRN.SERVICE ORDER TAKER [address] [address] PCP - General Family Medicine 05/18/17 Employee Benefits Specialist Relationship Specialty Start Date End Date Loan Dias APRN.CNP [address] [facility] [address] [place] [address] PCP - General Family Medicine 05/18/17 Team Status: Active Member Role/Relationship Status Dates Loan Dias DRAWING TENDER, DRAWING TENDER-C Primary Care Provider Active Team Status: Inactive Member Role/Relationship Status Dates Loan Dias DRAWING TENDER, DRAWING TENDER-C Primary Care Provider Active Start: December 14, 2024 End: December 14, 2024 Loan Dias DRAWING TENDER, DRAWING TENDER-C Referring Provider Active Start: December 14, 2024 End: December 14, 2024 Verónica Lopez DRAWING TENDER, DRAWING TENDER-C Attending Provider Active Start: December 14, 2024 End: December 14, 2024 Team Status: Active Member Role/Relationship Status Dates Dr. Antonia Escalante MD Attending Provider Active Start: December 14, 2024 Dr. Yogesh Haque MD Referring Provider Active Start: December 14, 2024 Dr. João Kong DO Other Provider Active Sta rt: December 14, 2024 Loan Dias DRAWING TENDER, DRAWING TENDER-C Primary Care Provider Active Start: December 14, 2024 Team Status: Inactive Member Role/Relationship Status Dates Loan Dias DRAWING TENDER, DRAWING TENDER-C Primary Care Provider Active Start: March 10, 2025 End: March 10, 2025 Loan Dias DRAWING TENDER, DRAWING TENDER-C Referring Provider Active Start: March 10, 2025 End: March 10, 2025 Dr. Raymond Lagos DO Attending Provider Active Start: March 10, 2025 End: March 10, 2025 Team Status: Inactive Member Role/Relationship Status Dates Loan Dias DRAWING TENDER, DRAWING TENDER-C Primary Care Provider Active Start: March 12, 2025 End: March 12, 2025 Loan Dias DRAWING TENDER, DRAWING TENDER-C Referring Provider Active Start: March 12, 2025 End: March 12, 2025 Dr. Hossein Josue MD Attending Provider Active Start: March 12, 2025 End: March 12, 2025 Team Status: Inactive Member Role/Relationship Status Dates Loan Dias DRAWING TENDER, DRAWING TENDER-C Primary Care Provider Active Start: April 04, 2025 End: April 04, 2025 Dr. oRb Guallpa MD Emergency Provider Active Start: April 04, 2025 End: April 04, 2025 Employee Benefits Specialist Relationship Specialty Start Date End Date Loan Dias APRN.SERVICE ORDER TAKER [address] [address] PCP - General Family Medicine 05/18/17 Team Status: Inactive Member Role/Relationship Status Dates Loan Dias DRAWING TENDER, DRAWING TENDER-C Primary Care Provider Active Start: April 08, 2025 End: April 08, 2025 Loan Dias DRAWING TENDER, DRAWING TENDER-C Referring Provider Active Start: April 08, 2025 End: April 08, 2025 Radha Tan NP-C Attending Provider Active Start: April 08, 2025 End: April 08, 2025 Team Status: Inactive Member Role/Relationship Status Dates Loan Dias DRAWING TENDER, DRAWING TENDER-C Primary Care Provider Active Start: March 10, 2025 End: March 10, 2025 Loan Dias DRAWING TENDER, DRAWING TENDER-C Referring Provider Active Start: March 10, 2025 End: March 10, 2025 Dr. Raymond Lagos DO Attending Provider Active Start: March 10, 2025 End: March 10, 2025 Team Status: Inactive Member Role/Relationship Status Dates Loan Dias DRAWING TENDER, DRAWING TENDER-C Primary Care Provider Active Start: March 12, 2025 End: March 12, 2025 Loan Dias DRAWING TENDER, DRAWING TENDER-C Referring Provider Active Start: March 12, 2025 End: March 12, 2025 Dr. Hossein Josue MD Attending Provider Active Start: March 12, 2025 End: March 12, 2025 Team Status: Inactive Member Role/Relationship Status Dates Loan Dias DRAWING TENDER, DRAWING TENDER-C Primary Care Provider Active Start: April 04, 2025 End: April 04, 2025 Dr. Rob Guallpa MD Attending Provider Active Start: April 04, 2025 End: April 04, 2025 Dr. Rob Guallpa MD Emergency Provider Active Start: April 04, 2025 End: April 04, 2025 Team Status: Inactive Member Role/Relationship Status Dates Loan Dias DRAWING TENDER, DRAWING TENDER-C Primary Care Provider Active Start: April 08, 2025 End: April 08, 2025 Loan Dias DRAWING TENDER, DRAWING TENDER-C Referring Provider Active Start: April 08, 2025 End: April 08, 2025 Radha Tan DRAWING TENDER-C Attending Provider Active Start: April 08, 2025 End: April 08, 2025 Team Status: Inactive Member Role/Relationship Status Dates Loan Dias DRAWING TENDER, DRAWING TENDER-C Primary Care Provider Active Start: April 13, 2025 End: April 13, 2025 Loan Dias DRAWING TENDER, DRAWING TENDER-C Attending Provider Active Start: April 13, 2025 End: April 13, 2025 Loan Dias DRAWING TENDER, DRAWING TENDER-C Referring Provider Active Start: April 13, 2025 End: April 13, 2025 Team Status: Inactive Member Role/Relationship Status Dates Loan Dias DRAWING TENDER, DRAWING TENDER-C Primary Care Provider Active Start: April 24, 2025 End: April 24, 2025 Dr. Nico Hook MD Attending Provider Active S tart: April 24, 2025 End: April 24, 2025 Source Comments (unrecognize d section and content) In the event this informatio n is protected by the Federal Confidentiality of Alcohol and Drug Abuse Patient Records regulations: The Federal rules restrict any use of the information to criminally investigate or prosecute any alcohol or drug abuse patient.[facility] the event this information is protected by the Federal Confidentiality of Alcohol and Drug Abuse Patient Records regulations: The Federal rules restrict any use of the information to criminally investigate or prosecute any alcohol or drug abuse patient.[facility] HospitalIn the event this information is protected by the Federal Confidentiality of Alcohol and Drug Abuse Patient Records regulations: The Federal rules restrict any use of the information to criminally investigate or prosecute any alcohol or drug abuse patient.[facility]In the event this information is protected by the Federal Confidentiality of Alcohol and Drug Abuse Patient Records regulations: The Federal rules restrict any use of the information to criminally investigate or prosecute any alcohol or drug abuse patient.[facility] HospitalIn the event this information is protected by the Federal Confidentiality of Alcohol and Drug Abuse Patient Records regulations: The Federal rules restrict any use of the information to criminally investigate or prosecute any alcohol or drug abuse patient.[facility] HospitalIn the event this information is protected by the Federal Confidentiality of Alcohol and Drug Abuse Patient Records regulations: The Federal rules restrict any use of the information to criminally investigate or prosecute any alcohol or drug abuse patient.[facility] HospitalIn the event this information is protected by the Federal Confidentiality of Alcohol and Drug Abuse Patient Records regulations: The Federal rules restrict any use of the information to criminally investigate or prosecute any alcohol or drug abuse patient.[facility] HospitalIn the event this information is protected by the Federal Confidentiality of Alcohol and Drug Abuse Patient Records regulations: The Federal rules restrict any use of the information to criminally investigate or prosecute any alcohol or drug abuse patient.[facility] HospitalIn the event this information is protected by the Federal Confidentiality of Alcohol and Drug Abuse Patient Records regulations: The Federal rules restrict any use of the information to criminally investigate or prosecute any alcohol or drug abuse patient.[facility] HospitalIn the event this information is protected by the Federal Confidentiality of Alcohol and Drug Abuse Patient Records regulations: The Federal rules restrict any use of the information to criminally investigate or prosecute any alcohol or drug abuse patient.[facility] HospitalIn the event this information is protected by the Federal Confidentiality of Alcohol and Drug Abuse Patient Records regulations: The Federal rules restrict any use of the information to criminally investigate or prosecute any alcohol or drug abuse patient.[facility] HospitalIn the event this information is protected by the Federal Confidentiality of Alcohol and Drug Abuse Patient Records regulations: The Federal rules restrict any use of the information to criminally investigate or prosecute any alcohol or drug abuse patient.[facility] HospitalIn the event this information is protected by the Federal Confidentiality of Alcohol and Drug Abuse Patient Records regulations: The Federal rules restrict any use of the information to criminally investigate or prosecute any alcohol or drug abuse patient.[facility] HospitalIn the event this information is protected by the Federal Confidentiality of Alcohol and Drug Abuse Patient Records regulations: The Federal rules restrict any use of the information to criminally investigate or prosecute any alcohol or drug abuse patient.[facility] HospitalIn the event this information is protected by the Federal Confidentiality of Alcohol and Drug Abuse Patient Records regulations: The Federal rules restrict any use of the information to criminally investigate or prosecute any alcohol or drug abuse patient.[facility] HospitalIn the event this information is protected by the Federal Confidentiality of Alcohol and Drug Abuse Patient Records regulations: The Federal rules restrict any use of the information to criminally investigate or prosecute any alcohol or drug abuse patient.[facility] HospitalIn the event this information is protected by the Federal Confidentiality of Alcohol and Drug Abuse Patient Records regulations: The Federal rules restrict any use of the information to criminally investigate or prosecute any alcohol or drug abuse patient.[facility] HospitalIn the event this information is protected by the Federal Confidentiality of Alcohol and Drug Abuse Patient Records regulations: The Federal rules restrict any use of the information to criminally investigate or prosecute any alcohol or drug abuse patient.[facility] HospitalIn the event this information is protected by the Federal Confidentiality of Alcohol and Drug Abuse Patient Records regulations: The Federal rules restrict any use of the information to criminally investigate or prosecute any alcohol or drug abuse patient.[facility] HospitalIn the event this information is protected by the Federal Confidentiality of Alcohol and Drug Abuse Patient Records regulations: The Federal rules restrict any use of the information to criminally investigate or prosecute any alcohol or drug abuse patient.[facility] HospitalIn the event this information is protected by the Federal Confidentiality of Alcohol and Drug Abuse Patient Records regulations: The Federal rules restrict any use of the information to criminally investigate or prosecute any alcohol or drug abuse patient.[facility] HospitalIn the event this information is protected by the Federal Confidentiality of Alcohol and Drug Abuse Patient Records regulations: The Federal rules restrict any use of the information to criminally investigate or prosecute any alcohol or drug abuse patient.[facility] HospitalIn the event this information is protected by the Federal Confidentiality of Alcohol and Drug Abuse Patient Records regulations: The Federal rules restrict any use of the information to criminally investigate or prosecute any alcohol or drug abuse patient.[facility] HospitalIn the event this information is protected by the Federal Confidentiality of Alcohol and Drug Abuse Patient Records regulations: The Federal rules restrict any use of the information to criminally investigate or prosecute any alcohol or drug abuse patient.[facility] HospitalIn the event this information is protected by the Federal Confidentiality of Alcohol and Drug Abuse Patient Records regulations: The Federal rules restrict any use of the information to criminally investigate or prosecute any alcohol or drug abuse patient.[facility] HospitalIn the event this information is protected by the Federal Confidentiality of Alcohol and Drug Abuse Patient Records regulations: The Federal rules restrict any use of the information to criminally investigate or prosecute any alcohol or drug abuse patient.[facility] HospitalIn the event this information is protected by the Federal Confidentiality of Alcohol and Drug Abuse Patient Records regulations: The Federal rules restrict any use of the information to criminally investigate or prosecute any alcohol or drug abuse patient.[facility] HospitalIn the event this information is protected by the Federal Confidentiality of Alcohol and Drug Abuse Patient Records regulations: The Federal rules restrict any use of the information to criminally investigate or prosecute any alcohol or drug abuse patient.[facility] HospitalIn the event this information is protected by the Federal Confidentiality of Alcohol and Drug Abuse Patient Records regulations: The Federal rules restrict any use of the information to criminally investigate or prosecute any alcohol or drug abuse patient.[facility] HospitalIn the event this information is protected by the Federal Confidentiality of Alcohol and Drug Abuse Patient Records regulations: The Federal rules restrict any use of the information to criminally investigate or prosecute any alcohol or drug abuse patient.[facility] HospitalIn the event this information is protected by the Federal Confidentiality of Alcohol and Drug Abuse Patient Records regulations: The Federal rules restrict any use of the information to criminally investigate or prosecute any alcohol or drug abuse patient.[facility] HospitalIn the event this information is protected by the Federal Confidentiality of Alcohol and Drug Abuse Patient Records regulations: The Federal rules restrict any use of the information to criminally investigate or prosecute any alcohol or drug abuse patient.[facility] Reason for Visit (unrecogniz ed section and content) Reason Onset Date Comments Stroke discharge callback 04/29/2024 Reason Comments CARD New Patient Consult DRAWING TENDER REF FOR PFO Reason Comments Preparations For Procedures Reason Comments Hospital Discharge Reason Comments Cardiac Clearance Reason Onset Date Comments Modified [place] Score 07/08/2024 Reason Comments Patient Question Reason Comments Follow Up Specialty Diagnoses / Procedures Referred By Contact Referred To Contact Cerebrovascular / NEUROSURGERY Diagnoses 6 week follow up Procedures EST NI PATIENT Ling Harding APRN.SERVICE ORDER TAKER [address] [place] [address] CarlitosLing smith APRN.SERVICE ORDER TAKER [id number] [place] [address] Referral ID Status Reason Start Date Expiration Date Visits Re quested Visits Authorized [id number] Closed 07/27/2024 10/25/2024 1 1 Reason Comments Patient Question Specialty Diagnoses / Procedures Referred By Contac t Referred To Contact Diagnoses PFO (patent foramen ovale) PFO (patent foramen ovale) [Q21.12] Procedures PRQ TCAT CLSR CGEN INTRATRL COMUNICAJ W/IMPLT INTRACARD ECHOCARD W/THER/DX IVNTJ INCL IMG S&I PERCUTANEOUS TRANSCATHETER 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 INTRACARDIAC ECHOCARDIOGRAPHY DURING THERAPEUTIC/DIAGNOSTIC INTERVENTION W/ IMAGING SUPERVISION/INTERPRETATION [address] [place] [address] Referral ID Status Reason Start Date Expiration Date Visits Re quested Visits Authorized [id number] 1 Reason Comments Appointment International Accounting Manager - Other Reason Comments International Accounting Manager - Other Reason Onset Date Comments Appointment 09/30/2024 Reason Comments CARD Follow Up 1 Month Follow up to pfo Reason Comments Cardiology Follow Up - Generic Discuss m onitor results/ppm implant Reason Comments Wound Check Reason Comments New Pain Reason Comments Established Patient Follow Up Pain Scheduled Active and Recently Administ ered Medications (unrecognized section and content) Medication Order 09/08/2024 09/09/2024 09/10/2024 ceFAZolin iv piggyback 1 g in D5W (iso-osmotic) 50 mL (ANCEF) (COMPLETED) 1 g, INTRAVENOUS, at 100 mL/hr, Administer over 30 Minutes, ONCE, 1 dose, On Frida 09/10/24 at 1000, Tube # 315 GIPSON product = Refrigerate. B. Navarro DUPLEX product = Room Temp., Antimicrobial indication: Prophylaxis, Preprocedure 1100 (New Bag/Syring e/Bottle - Provider: Alice Santos RN) heparin 1,000 Units in D5W 250 mL 1,000 Units, INTRA-ARTERIAL, ONE TIME, 1 dose, Starting on Frida 09/10/24 at 1015, Until Sat09/11/24 at 0302, NOW (EMERGENT PROCEDURE) FOR SUPERVISOR LANDSCAPE USE ONLY, Intraprocedure heparin 3,000 Units in NaCl 0.9% 500 mL irrigation 3,000 Units, IRRIGATION, ONE TIME, 1 dose, Starting on Frida 09/10/24 at 1015, Until Sat09/11/24 at 0302, NOW (EMERGENT PROCEDURE) FOR SUPERVISOR LANDSCAPE USE ONLY For Irrigation Use Only, Intraprocedure [...] BE BASED ON THE PRIMARY CLINICAL RECORDS. [facility] [employer] [facility]. provides no warranty or guarantee of the accuracy or completeness of information in this document.
--- OUTSIDE RECORDS SUMMARY | 2025-05-11 05:56 | XMS RPT_ITS | CCD ---
Author Organization [facility] Care Team Providers Care Quill Picking Machine Operator Name Role Phone DIAS, LOAN L Unavailable Unavailable DIAS, LOAN L Unavailable Unavailable DIAS, LOAN L Unavailable Unavailable KHAYATA, MOHAMED Unavailable Unavailable ANDREA, RAVKIRAN (RES) Unavailable Unavaila ble RIO BARR Unavailable Unavailable REMELANY ROSSY (PT) Unavailable Unavailable ANDREA, RAVKIRAN (RES) Unavailable Unavaila ble RECARMELAH ROSSY (PT) Unavailable Unavailable ANDREA, RAVKIRAN (RES) Unavailable Unavaila ble Dias SENIOR QUALITY ASSURANCE ENGINEER, SENIOR QUALITY ASSURANCE ENGINEER-C Loan Primary Care Provider Arun SENIOR QUALITY ASSURANCE ENGINEER, SENIOR QUALITY ASSURANCE ENGINEER-C Loan Referring Provider Dr. Antonia Escalante Attending Provider Dr. João Kong Attending Provider [phone] Dominick Villalpando Attending Provider Dr. Antonia Escalante Referring Provider Dr. Nico Hoko Attending Provider Arun SENIOR QUALITY ASSURANCE ENGINEER, SENIOR QUALITY ASSURANCE ENGINEER-C Loan Primary Care Provider Arun SENIOR QUALITY ASSURANCE ENGINEER, SENIOR QUALITY ASSURANCE ENGINEER-C Loan Referring Provider John SENIOR QUALITY ASSURANCE ENGINEER, SENIOR QUALITY ASSURANCE ENGINEER-C Verónica Attending Provider [phone] Dr. Raymond Lagos Attending Provider [phone] João Kong Attending Provider Gilma Hickey Attending Provider Unavailable Dr. Dia Tobin Attending Provider Dr. Dai Tobin Other Provider Arun SENIOR QUALITY ASSURANCE ENGINEER, SENIOR QUALITY ASSURANCE ENGINEER-C Loan Primary Care Provider Dias SENIOR QUALITY ASSURANCE ENGINEER, SENIOR QUALITY ASSURANCE ENGINEER-C Loan Referring Provider Dr. Antonia Escalante Attending Provider Dr. João Kong Attending Provider Dias SENIOR QUALITY ASSURANCE ENGINEER, SENIOR QUALITY ASSURANCE ENGINEER-C Loan Primary Care Provider Dias SENIOR QUALITY ASSURANCE ENGINEER, SENIOR QUALITY ASSURANCE ENGINEER-C Loan Referring Provider John SENIOR QUALITY ASSURANCE ENGINEER, SENIOR QUALITY ASSURANCE ENGINEER-C Verónica Attending Provider Lisa Harper [facility] Attending Provider Dias SENIOR QUALITY ASSURANCE ENGINEER, SENIOR QUALITY ASSURANCE ENGINEER-C Loan Primary Care Provider Dias SENIOR QUALITY ASSURANCE ENGINEER, SENIOR QUALITY ASSURANCE ENGINEER-C Loan Referring Provider Dr. Antonia Escalante Attending Provider Dias SENIOR QUALITY ASSURANCE ENGINEER, SENIOR QUALITY ASSURANCE ENGINEER-C Loan Primary Care Provider Dias SENIOR QUALITY ASSURANCE ENGINEER, SENIOR QUALITY ASSURANCE ENGINEER-C Loan Referring Provider John SENIOR QUALITY ASSURANCE ENGINEER, SENIOR QUALITY ASSURANCE ENGINEER-C Verónica Attending Provider Dr. Raymond Lagos Attending Provider Dr. Dia Tobin Attending Provider Dias SENIOR QUALITY ASSURANCE ENGINEER, SENIOR QUALITY ASSURANCE ENGINEER-C Loan Primary Care Provider Dr. João Kong Attending Provider Dias SENIOR QUALITY ASSURANCE ENGINEER, SENIOR QUALITY ASSURANCE ENGINEER-C Loan Referring Provider Dr. Raymond Lagos Attending Provider Dr. Nico Hook Attending Provider John SENIOR QUALITY ASSURANCE ENGINEER, SENIOR QUALITY ASSURANCE ENGINEER-C Verónica Attending Provider Ashlee ROY, KIRILL Mullins Attending Provider Dias SENIOR QUALITY ASSURANCE ENGINEER, SENIOR QUALITY ASSURANCE ENGINEER-C Loan Primary Care Provider Dias SENIOR QUALITY ASSURANCE ENGINEER, SENIOR QUALITY ASSURANCE ENGINEER-C Loan Referring Provider Dr. Raymond Lagos Attending Provider Dr. Nico Hook Attending Provider Dr. Antonia Escalante Attending Provider Arun SENIOR QUALITY ASSURANCE ENGINEER, SENIOR QUALITY ASSURANCE ENGINEER-C Loan Primary Care Provider Dias SENIOR QUALITY ASSURANCE ENGINEER, SENIOR QUALITY ASSURANCE ENGINEER-C Loan Referring Provider Ashlee ROY, PA Ashli Mullins Attending Provider Dr. Raymond Lagos Attending Provider Dr. Nico Hook Attending Provider Dr. Antonia Escalante Attending Provider Dr. João Kong Attending Provider Dr. Raymond Lagos Other Provider Dr. Ashley Luna Primary Care Provider Dr. Ashley Luna Referring Provider Arun SENIOR QUALITY ASSURANCE ENGINEER, SENIOR QUALITY ASSURANCE ENGINEER-C Loan Primary Care Provider Dias SENIOR QUALITY ASSURANCE ENGINEER, SENIOR QUALITY ASSURANCE ENGINEER-C Loan Referring Provider Ashlee ROY, PA Ashli Mullins Attending Provider Arun JEWELRY JOBBER.DRAW PRESS OPERATOR, Loan L Primary Care Provide r Dias SENIOR QUALITY ASSURANCE ENGINEER-C, Loan Primary Care Provider Arun SENIOR QUALITY ASSURANCE ENGINEER-C, Loan Referring Provider Dr. Raymond Lagos DO Attending Provider Dr. Nico Hook MD Attending Provider John SENIOR QUALITY ASSURANCE ENGINEER-C, Verónica Attending Provider Dr. Antonia Escalante MD Attending Provider Dr. Yogesh Haque MD Referring Provider Dr. João Kong DO Other Provider Arun SENIOR QUALITY ASSURANCE ENGINEER-C, Loan Attending Provider Dr. Mariajose Barclay MD Attending Provider Deny LEIVA, Dr. Billy Referring Provider Luann BRITTON, Dr. Moyer Attending Provider Ava LEIVA, Dr. Knight Referring Provider Dias SENIOR QUALITY ASSURANCE ENGINEER-C, Loan Primary Care Provider Arun SENIOR QUALITY ASSURANCE ENGINEER-C, Loan Referring Provider John SENIOR QUALITY ASSURANCE ENGINEER-C, Verónica Attending Provider Ava LEIVA, Dr. Knight Attending Provider Shabnam LEIVA, Dr. Zuñiga Referring Provider Dr. João Kong DO Other Provider Dr. Raymond Lagos DO Attending Provider Joselo LEIVA, Dr. Catalan Attending Provider Saloni LEIVA, Dr. Rivas Emergency Provider Dominick SENIOR QUALITY ASSURANCE ENGINEER-C, Radha Attending Provider DIAS, LOAN L Primary [...] Unavailable DIAS, LOAN L Primary Care Unavailable DAIS, LOAN L Primary Care Unavailable KANAA'N, SMITH [...] Care Unavailable KANAA'N, SMITH Attending Unavailable Dias SENIOR QUALITY ASSURANCE ENGINEER-C, Loan Primary Care Provider [phone] Dias SENIOR QUALITY ASSURANCE ENGINEER-C, Loan Referring Provider [phone] Dr. Rob Guallpa MD Attending Provider Dias SENIOR QUALITY ASSURANCE ENGINEER-C, Loan Attending Provider Dr. Nico Hook MD Attending Provider [phone] João Kong Attending Unavailable Dias SENIOR QUALITY ASSURANCE ENGINEER, Loan Primary Care Unavailable Dias SENIOR QUALITY ASSURANCE ENGINEER, Loan Referring Unavailable John SENIOR QUALITY ASSURANCE ENGINEER, Verónica Attending Unavailable Dias SENIOR QUALITY ASSURANCE ENGINEER, Loan Primary Care Unavailable Dias SENIOR QUALITY ASSURANCE ENGINEER, Loan Referring Unavailable Dias SENIOR QUALITY ASSURANCE ENGINEER, Loan Primary Care Unavailable Nico Hook Attending Unavailable Dias SENIOR QUALITY ASSURANCE ENGINEER, Loan Primary Care Unavailable Dias SENIOR QUALITY ASSURANCE ENGINEER, Loan Referring Unavailable Ashli Raza Attending Unavail able Dias SENIOR QUALITY ASSURANCE ENGINEER, Loan Primary Care Unavailable Dias SENIOR QUALITY ASSURANCE ENGINEER, Loan Referring Unavailable Raymond Lagos Attending Unavailable Hossein Josue Attending Unavailable Dias SENIOR QUALITY ASSURANCE ENGINEER, Loan Primary Care Unavailable Dias SENIOR QUALITY ASSURANCE ENGINEER, Loan Referring Unavailable Dias SENIOR QUALITY ASSURANCE ENGINEER, Loan Primary Care Unavailable John SENIOR QUALITY ASSURANCE ENGINEER, Verónica Attending Unavailable Dias SENIOR QUALITY ASSURANCE ENGINEER, Loan Referring Unavailable Dias SENIOR QUALITY ASSURANCE ENGINEER, Loan Primary Care Unavailable Radha Tan Attending Unavailable John SENIOR QUALITY ASSURANCE ENGINEER, Verónica Attending Unavailable Dias SENIOR QUALITY ASSURANCE ENGINEER, Loan Primary Care Unavailable John SENIOR QUALITY ASSURANCE ENGINEER, Verónica Referring Unavailable Dia Tobin Attending Unavailable Dias SENIOR QUALITY ASSURANCE ENGINEER, Loan Primary Care Unavailable Dias SENIOR QUALITY ASSURANCE ENGINEER, Loan Referring Unavailable Dias SENIOR QUALITY ASSURANCE ENGINEER, Loan Primary Care Unavailable Isckarus, Mansour Referring Unavailable Isckarus, Mansour Attending Unavailable Dias SENIOR QUALITY ASSURANCE ENGINEER, Loan Primary Care Unavailable Isckarus, Mansour Referring Unavailable Isckarus, Mansour Attending Unavailable Dias SENIOR QUALITY ASSURANCE ENGINEER, Loan Primary Care Unavailable Deny Ayman Referring Unavailable Basallizett Ayman Attending Unavailable Dias SENIOR QUALITY ASSURANCE ENGINEER, Loan Primary Care Unavailable Rob Guallpa Attending Unavailable Dias SENIOR QUALITY ASSURANCE ENGINEER, Loan Primary Care Unavailable Ashlee PA, Ashli M Referring Unavail able Ashlee PA, Ashli M Attending Unavail able Dias SENIOR QUALITY ASSURANCE ENGINEER, Loan Primary Care Unavailable Ashlee PA, Ashli M Referring Unavail able Ashlee ROY, Ashli M Attending Unavail able João Kong Unavailable Dias SENIOR QUALITY ASSURANCE ENGINEER, Loan Primary Care Unavailable Isckarus, Mansour Attending Unavailable Yogesh Haque Referring Unavailable Dias SENIOR QUALITY ASSURANCE ENGINEER, Loan Primary Care Unavailable Dias SENIOR QUALITY ASSURANCE ENGINEER, Loan Referring Unavailable Raymond Lagos Attending Unavailable Dias SENIOR QUALITY ASSURANCE ENGINEER, Loan Primary Care Unavailable Nico Hook Attending Unavailable John SENIOR QUALITY ASSURANCE ENGINEER, Verónica Attending Unavailable Dias SENIOR QUALITY ASSURANCE ENGINEER, Loan Primary Care Unavailable Dias SENIOR QUALITY ASSURANCE ENGINEER, Loan Referring Unavailable Allergies Allergy Classification Reported Allergen(s) Allergy Type Date of Onset Reaction(s) Facility (20 sources) Adhesive Tape; Translations: [adhesive tape] Allergy to substance 2 Hives [facility] (20 sources) anastrozole Drug Allergy 2 joint pain, anxiety, hot flashes [facility] (20 sources) oxyCODONE Drug Allergy 2 [facility] (4 sources) Acetaminophen Drug Allergy 4 [facility] (4 sources) HYDROcodone Drug Allergy 4 [facility] (20 sources) Acetaminophen / oxyCODONE; Translations: [OXYCODONE-ACETAM INOPHEN] Drug Allergy 0 [facility] (20 sources) Adhesive Tape-Silicones; Translations: [ADHESIVE TAPE-SILICONES] Drug Allergy 0 Rash [facility] (1 source) Acetaminophen Drug Allergy 5 [facility] (1 source) anastrozole Drug Allergy 5 [facility] (1 source) HYDROcodone Drug Allergy 5 [facility] Repository (1 source) oxyCODONE Drug Allergy 5 [facility] Repository Medications Current Medications Medication Drug Class(es) [...] 19, 2018 12:00am May 26, 2019 5:47pm Ojhloawdmbwn-Woqc-Srzim Acid (13 sources) Start: 06-13-2020 Multivitamin-I joelle-Folic [...] 20, 2021 1:00am October 18, 2021 11:54am [id number] 200 actuat albuterol 0.09 mg/actuat metered dose [...] 11:54am Start: 07-16-2021 take 1 tablet by [facility] every eight hours as needed cyclobenzaprine [...] 20 mg/ml oral solution (1 source) Uncompetitive E-gwhexn-K-aspartat e Receptor Antagonist, Sigma-1 Agonist Start: 04-26-2021 [...] 09/11/24 at 0302, NOW (EMERGENT PROCEDURE) FOR VIDEO PRODUCER USE ONLY, Intraprocedure heparin 3,000 Units in NaCl 0.9% 500 mL irrigation (1 source) Start: 09-10-2024 End: 09-11-2024 3,000 Units, IRRIGATION, ONE TIME, 1 dose, Starting on Frida 09/10/24 at 1015, Until Sat09/11/24 at 0302, NOW (EMERGENT PROCEDURE) FOR VIDEO PRODUCER USE ONLY For Irrigation Use Only, Intraprocedure [...] tablet (8 sources) Start: 06-13-2020 End: 10-08-2024 Mvmoymccviex-Jpkn-Dy lic Acid 1 EACH tablet Discontinued 1 NMA PO DAILY June 13, 2020 12:00am October 08, 2024 6:50pm vitamin Start: 06-13-2020 End: 10-08-2024 Bmpiornziyfu-Vkjf-Rumot Acid 1 EACH tablet Discontinued 1 NMA [...] release oral tablet (20 sources) Blood Viscosity Medical Safety Director Start: 03-03-2021 End: 05-24-2021 take 1 tablet [...] lumpectomy, rad, chemo in 2019- surgery at [facility] Cancer of breast (20 sources) History of [...] (8 sources) Prophylactic aromatase inhibitors given; Translations: [barrel lapper (current) use of aromatase inhibitors] 09-21-2024 Episodic Other aftercare (3 sources) Anticoagulant effect; Translations: [senior care (current) use of anticoagulants] 04-04-2025 Episodic Other aftercare (1 source) barrel lapper (current) use of aromatase inhibitors; Translations: [senior care (current) use of aromatase inhibitors] Onset: 04-23-2025 [...] including parasitic (20 sources) Post-viral disorder; 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 [address] OFFICE VISIT Date of Service: 04/08/25 MR#: [id number] Acct: [id number] Name: BO JACOB Rep #: [id number] : 1955 Provider: KEYA caro Age/Sex: 69/F [place] [facility] [place]: [place]igned Intake Vital Signs 04/04/25 01:05 04/08/25 09:29 Height 5 ft 1 in 5 ft 1 in Weight: 183 lb BMI 34.5 BP 129/83 H Blood Pressure Location Lt brachial Position Sitting Pulse 85 Pulse Oximetry (%) 98 Intake Visit Reasons: Hospital FU Chief Complaint: HFU- chest pain Telecommunicator Required: No Accompanied by: Self Is patient [...] 1-2 times per week duration: 15-30 minutes/day frankie/buddhist: Non-Nondenominational/Independ ent seatbelt use: always do you feel safe at home: Yes HPI HPI Chief Complaint: HFU- chest pain Details: BO JACOB, is a 69 F who presents to the office today for - pressure in chest, radiates up into throat and through to her back - seen in ER this past 04/03/2025 - reports MA was rule-out in ED - h/o CVA 04/19/2024 - PFO repair August 2024 then September 2024 she developed A. Fib and the same chest pressure, pericarditis started on cardizem, ami (more content not included)... Normal [facility] Additional Injections: R casandra ntar fasciaon 04-07-2025 [...] these instructions. Informed Consent Consent Obtained: Verbal [place] Protocol SIGN IN Patient/Surrogate Stated/Verified: Patient name TIME OUT Correct side/site marked and visible. Medications required for procedure verified. SIGN OUT The post-procedure POC has been communicated to the patient or surrogate. [facility] CNOVon 04-07-2025 CNOV Normal [facility] Absolute lymphocyte countOrd ered By: Rob Guallpa on 04-04-2025 Lymphocytes Auto (Unsp spec) [#/Vol] 2.15 10*3/uL 0.83-4.51 [facility] Absolute neutrophil countOrd ered By: Rob Guallpa on 04-04-2025 Neutrophils (Bld) [#/Vol] 4.2 10*3/uL 2.0-7.7 [facility] Anion gap in Serum or Plasma Ordered By: Rob Guallpa on 04-04-2025 Anion gap [Moles/Vol] 14 mmol/L - [facility] Automated lymphocyte count a s percentage of total leukocytesOrdered By: Rob Guallpa on 04-04-2025 Lymphocytes/100 WBC Auto (Unsp spec) 29.4 % - [facility] BUN/creatinine ratioOrdered By: Rob Guallpa on 04-04-2025 Urea nitrogen/Creatinine [Mass ratio] 20.6 mg/mg High 10- [facility] Basic Metabolic Profile (BMP )on 04-04-2025 BUN/CRE 20.6 RATIO High 10-20 [facility] Comment on above: Performed By: #### L 501.4021, L100.0100, L500.2500 ####[facility] [address] [place], [address] Calcium [Mass/Vol] 9.6 mg/dL Normal 7.6-11.0 [facility] Comment on above: Performed By: #### L 501.4021, L100.0100, L500.2500 ####[facility] [address] [place], [address] Chloride [Moles/Vol] 105 mmol/L Normal 98-108 [facility] Comment on above: Performed By: #### L 501.4021, L100.0100, L500.2500 ####[facility] [address] [place], [address] CO2 [Moles/Vol] 24.3 mmol/L Normal 21.0-32.0 [facility] Comment on above: Performed By: #### L 501.4021, L100.0100, L500.2500 ####[facility] [address] [place], [address] Creatinine [Mass/Vol] 0.88 mg/dL Normal 0.70-1.20 [facility] Comment on above: Performed By: #### L 501.4021, L100.0100, L500.2500 ####[facility] [address] [place], [address] ECRCL 59.54 ml/min Normal 50-250 [facility] Comment on above: Performed By: #### L 501.4021, L100.0100, L500.2500 ####[facility] [address] [place], [address] GAP 14 Normal 5-15 [facility] Comment on above: Performed By: #### L 501.4021, L100.0100, L500.2500 ####[facility] [address] [place], [address] GFR/1.73 sq M.predicted among non-blacks MDRD (S/P/Bld) [Vol rate/Area] 71 mL/min/{1.73_m2} Normal >60 [facility] Comment on above: Result Comment: mL/m in/1.73m2 CKD-EPI Creatinine Equation (2020) Performed By: #### L 501.4021, L100.0100, L500.2500 ####[facility] [address] [place], [address] Glucose [Mass/Vol] 103 mg/dL High 70-99 [facility] Comment on above: Performed By: #### L 501.4021, L100.0100, L500.2500 ####[facility] [address] [place], [address] Potassium [Moles/Vol] 3.7 mmol/L Normal 3.3-5.1 [facility] Comment on above: Performed By: #### L 501.4021, L100.0100, L500.2500 ####[facility] [address] [place], [address] Sodium [Moles/Vol] 143 mmol/L Normal 133-145 [facility] Comment on above: Performed By: #### L 501.4021, L100.0100, L500.2500 ####[facility] [address] [place], [address] Urea nitrogen [Mass/Vol] 18 mg/dL Normal 4-19 [facility] Comment on above: Performed By: #### L 501.4021, L100.0100, L500.2500 ####[facility] [address] [place], [address] Basophil percentageOrdered B y: Rob Guallpa on 04-04-2025 Basophils/100 WBC (Bld) 1.1 % High 0-1 [facility] CBC W/Diff, Automatedon 03-19 Absolute Lymph 2.15 X10 3/uL Normal 0.83-4.51 [facility] Comment on above: Performed By: #### L 501.4021, L100.0100, L500.2500 ####[facility] [address] [place], [address] Absolute Neut 4.2 X10 3/uL Normal 2.0-7.7 [facility] Comment on above: Performed By: #### L 501.4021, L100.0100, L500.2500 ####[facility] [address] [place], [address] Basophils/100 WBC (Bld) 1.1 % High 0-1 [facility] Comment on above: Performed By: #### L 501.4021, L100.0100, L500.2500 ####[facility] [address] [place], [address] Eosinophils/100 WBC (Bld) 4.5 % Normal 0-5 [facility] Comment on above: Performed By: #### L 501.4021, L100.0100, L500.2500 ####[facility] [address] [place], [address] Erythrocyte distribution width (RBC) [Ratio] 12.4 % Normal 11.6-14.6 [facility] Comment on above: Performed By: #### L 501.4021, L100.0100, L500.2500 ####[facility] [address] [place], [address] Hematocrit (Bld) [Volume fraction] 42.9 % Normal 37-47 [facility] Comment on above: Performed By: #### L 501.4021, L100.0100, L500.2500 ####[facility] [address] [place], [address] Hemoglobin (Bld) [Mass/Vol] 14.8 g/dL Normal 12.0-15.0 [facility] Comment on above: Performed By: #### L 501.4021, L100.0100, L500.2500 ####[facility] [address] [place], [address] IG% 0.500 Normal 0.0-0.9 [facility] Comment on above: Result Comment: IG% - Immature Granulocytes (promyelocytes, myelocytes and metamyelocytes) > 1% indicates that a LEFT SHIFT is Present. Performed By: #### L 501.4021, L100.0100, L500.2500 ####[facility] [address] [place], [address] Lymphocytes/100 WBC (Bld) 29.4 % Normal 19-41 [facility] Comment on above: Performed By: #### L 501.4021, L100.0100, L500.2500 ####[facility] [address] [place], [address] MCH (RBC) [Entitic mass] 32.2 pg High 27.0-32.0 [facility] Comment on above: Performed By: #### L 501.4021, L100.0100, L500.2500 ####[facility] [address] [place], [address] MCHC (RBC) [Mass/Vol] 34.5 g/dL Normal 32-36 [facility] Comment on above: Performed By: #### L 501.4021, L100.0100, L500.2500 ####[facility] [address] [place], [address] MCV (RBC) [Entitic vol] 93.3 fL Normal 81-99 [facility] Comment on above: Performed By: #### L 501.4021, L100.0100, L500.2500 ####[facility] [address] [place], [address] Monocytes/100 WBC (Bld) 6.6 % Normal 0-10 [facility] Comment on above: Performed By: #### L 501.4021, L100.0100, L500.2500 ####[facility] [address] [place], [address] Neutrophils/100 WBC (Bld) 57.9 % Normal 47-70 [facility] Comment on above: Performed By: #### L 501.4021, L100.0100, L500.2500 ####[facility] [address] [place], [address] Nucleated RBC (Bld) [#/Vol] 0 10*3/uL Normal 0-5 [facility] Comment on above: Performed By: #### L 501.4021, L100.0100, L500.2500 ####[facility] [address] [place], [address] Platelet mean volume (Bld) [Entitic vol] 9.4 fL Normal 6.2-12.0 [facility] Comment on above: Performed By: #### L 501.4021, L100.0100, L500.2500 ####[facility] [address] [place], [address] Platelets (Bld) [#/Vol] 255 10*3/uL Normal 150-450 [facility] Comment on above: Performed By: #### L 501.4021, L100.0100, L500.2500 ####[facility] [facility] [address] [place], [address] RBC (Bld) [#/Vol] 4.60 10*6/uL Normal 4.2-5.4 [facility] Comment on above: Performed By: #### L 501.4021, L100.0100, L500.2500 ####[facility] [address] [place], [address] RDW SD 42.6 fl Normal 35.1-43.9 [facility] Comment on above: Performed By: #### L 501.4021, L100.0100, L500.2500 ####[facility] [address] [place], [address] WBC (Bld) [#/Vol] 7.3 10*3/uL Normal 4.4-11.0 [facility] Comment on above: Performed By: #### L 501.4021, L100.0100, L500.2500 ####[facility] [address] [place], [address] Carbon dioxide, total [Moles /volume] in Central venous bloodOrdered By: Rob Guallpa on 04-04-2025 CO2 [Moles/Vol] 24.3 mmol/L 21.0-32.0 [facility] Chest 1 View (Portable)on Chest 1 View (Portable) [facility] Imaging Services [address] [place] [address] Chest 1 View (Portable) MR#: [id number] Acct: [id number] Name: BO JACOB Rep #: [id number] : 1955 F 69 From: Consuelo connell MD PCP: KEAY Reaves Status: DEP ER Study: Chest 1 View (Portable) Date of Exam: 04/04/25 Exam# [id number] Ordering Dr: Rob Guallpa MD PROCEDURE: CHEST [...] No evidence for acute abnormality. Reading Location: [place] [address] CC: SENIOR QUALITY ASSURANCE ENGINEER-C Loan Dias; Dr. Rob Guallpa MD Emergency Specialist: Signed Normal [facility] Chloride assayOrdered By: Laxmi Guallpa on 04-04-2025 Chloride [Moles/Vol] 105 mmol/L 98-108 [facility] Emergency Department Summary on 04-04-2025 Emergency Department Summary [facility] Medical Records Department [address] [place] [address] Emergency Department Summary 04/04/25 MR#: [id number] Acct: [id number] Name: BO JACOB Rep #: [id number] : 1955 69 From: Rob Guallpa MD [...] and follows with cardiology here at the [place] [facility]. She states her operation supervisor thinks that the pressure she has been having has been chronic pericarditis. [facility] Medical History Pericardial effusion Atrial fibrillation with [...] disease) Bro (more content not included)... Normal [facility] Eosinophil percentageOrdered By: Rob Guallpa on 04-04-2025 Eosinophils/100 WBC (Bld) 4.5 % 0-5 [facility] Erythrocyte distribution wid th ratioOrdered By: Rob Guallpa on 04-04-2025 Erythrocyte distribution width (RBC) [Ratio] 12.4 % 11.6-14.6 [facility] Erythrocyte distribution wid th standard deviationOrdered By: Rob Guallpa on 04-04-2025 Erythrocyte distribution width (RBC) [Ratio] 42.6 fl 35.1-43.9 [facility] Glomerular filtration rate ( GFR) estimation/1.73 sq m using serum, plasma, or whole bOrdered By: Rob Guallpa on 04-04-2025 GFR/1.73 sq M.predicted among non-blacks MDRD (S/P/Bld) [Vol rate/Area] 71 mL/min/{1.73_m2} >60 [facility] Comment on above: mL/min/1.73m2 CKD-EP I Creatinine Equation (2020) Hematocrit Auto (Bld) [Volum e fraction]Ordered By: Rob Guallpa on 04-04-2025 Hematocrit (Bld) [Volume fraction] 42.9 % 37-47 [facility] Hemoglobin measurementOrdere d By: Rob Guallpa on 04-04-2025 Hemoglobin (Bld) [Mass/Vol] 14.8 g/dL 12.0-15.0 [facility] Immature granulocytes/100 WB C Auto (Bld)Ordered By: Rob Guallpa on 04-04-2025 Immature granulocytes/100 WBC (Bld) 0.500 % 0.0-0.9 [facility] Comment on above: IG% - Immature Granu locytes (promyelocytes, myelocytes and metamyelocytes) > 1% indicates that a LEFT SHIFT is Present. L501.4021on 04-04-2025 Trop T High Sen 8 ng/L Normal <=14 [facility] Comment on above: Performed By: #### L 501.4021, L100.0100, L500.2500 ####[facility] [address] [place], [place], [id number] MCV (mean corpuscular volume ) determinationOrdered By: Rob Guallpa on 04-04-2025 MCV (RBC) [Entitic vol] 93.3 fL 81-99 [facility] Mean corpuscular hemoglobin (MCH) determinationOrdered By: Rob Guallpa on 04-04-2025 MCH (RBC) [Entitic mass] 32.2 pg High 27.0-32.0 [facility] Mean corpuscular hemoglobin concentration (MCHC) determinationOrdered By: Rob Guallpa on 04-04-2025 MCHC (RBC) [Mass/Vol] 34.5 g/dL 32-36 [facility] Mean platelet volume determi nationOrdered By: Rob Guallpa on 04-04-2025 Platelet mean volume (Bld) [Entitic vol] 9.4 fL 6.2-12.0 [facility] Monocyte percentageOrdered B y: Rob Guallpa on 04-04-2025 Monocytes/100 WBC (Bld) 6.6 % 0-10 [facility] Neutrophil percentageOrdered By: Rob Guallpa on 04-04-2025 Neutrophils/100 WBC (Bld) 57.9 % 47-70 [facility] Nucleated red blood cell per centageOrdered By: Rob Guallpa on 04-04-2025 Nucleated RBC/100 WBC (Bld) [Ratio] 0 % 0-5 [facility] Platelet countOrdered By: Laxmi Guallpa on 04-04-2025 Platelets (Bld) [#/Vol] 255 10*3/uL 150-450 [facility] Potassium measurement (mass/ volume)Ordered By: Rob Guallpa on 04-04-2025 Potassium (Unsp spec) [Mass/Vol] 3.7 mmol/L 3.3-5.1 [facility] RBC Auto (Bld) [#/Vol]Ordere d By: Rob Guallpa on 04-04-2025 RBC (Bld) [#/Vol] 4.60 10*6/uL 4.2-5.4 [facility] Serum creatinine measurement (mass/volume)Ordered By: Rob Guallpa on 04-04-2025 Creatinine [Mass/Vol] 0.88 mg/dL 0.70-1.20 [facility] Serum glucose measurement (m ass/volume)Ordered By: Rob Guallpa on 04-04-2025 Glucose [Mass/Vol] 103 mg/dL High 70-99 [facility] Serum or plasma calcium giovany urement (mass/volume)Ordered By: Rob Guallpa on 04-04-2025 Calcium [Mass/Vol] 9.6 mg/dL 7.6-11.0 [facility] Serum or plasma urea nitroge n measurement (mass/volume)Ordered By: Rob Guallpa on 04-04-2025 Urea nitrogen [Mass/Vol] 18 mg/dL 4-19 [facility] Sodium levelOrdered By: Michael Guallpa on 04-04-2025 Sodium [Moles/Vol] 143 mmol/L 133-145 [facility] Troponin T HS 2 HRon 025 Trop T High Sen 8 ng/L Normal <=14 [facility] Comment on above: Performed By: #### L 499.0042 ####[facility] [address] [place], [address] Troponin T HS 4 HRon 025 Trop T High Sen Normal <=14 [facility] Comment on above: Result Comment: Canc elled via OM: Order cancelled - Patient discharged Performed By: #### L 499.0043 ####[facility] [address] [place], [address] Troponin T.cardiac [Mass/vol ume] in Serum or Plasma by High sensitivity methodOrdered By: Rob Guallpa on 04-04-2025 Troponin T.cardiac High sensitivity method [Mass/Vol] 8 ng/L <14 [facility] Troponin T.cardiac High sensitivity method [Mass/Vol] 8 ng/L <14 [facility] White blood cell (WBC) count Ordered By: Rob Guallpa on 04-04-2025 WBC (Bld) [#/Vol] 7.3 10*3/uL 4.4-11.0 [facility] Cardiology Visit Reporton Cardiology Visit Report [facility] [address] [place], [place] [address] OFFICE VISIT Date of Service: 03/12/25 MR#: [id number] Acct: [id number] Name: BO JACOB Rep #: [id number] : 1955 Provider: Dr. Hossein gould MD Age/Sex: 69/F Location: [facility] Status: Signed HPI HPI History of Present [...] patent foramen ovale (PFO) closure at the [facility] on September 10, 2024. Her atrial [...] of recurr (more content not included)... Normal [facility] CNOVon 03-10-2025 CNOV Normal [facility] Orthopedic Visit Reporton Orthopedic Visit Report [facility] [address] [place] [address] OFFICE VISIT Date of Service: 03/10/25 MR#: [id number] Acct: [id number] Name: BO JACOB Rep #: [id number] : 1955 Provider: Dr. Raymond jaimes DO Age/Sex: 69/F Location: [facility] [place] Status: Signed Intake Vital Signs 12/14/24 15:38 [...] 1-2 times per week duration: 15-30 minutes/day frankie/buddhist: Non-Nondenominational/Independ ent seatbelt use: always do you feel [...] sleeping. S (more content not included)... Normal [facility] 03-08-2025 [facility] 03-06-2025 [facility] Normal [facility] ED NOTEon 03-06-2025 ED NOTE Normal [facility] ED NOTE Normal [facility] ED NOTE HNO ID: [id number] Author: RIO CARRANZA, RN Service: ? Author Type: Registered Nurse Type: ED Notes Filed: 03/06/2025 19:03 Note Text: Report to aruna hernandez rn Normal [facility] ED NOTE HNO ID: [id number] Author: RIO CARRANZA, BERNABE Service: ? Author Type: Registered Nurse Type: ED Notes Filed: 03/06/2025 18:55 Note Text: Dr merida at bedside for exam Normal [facility] ED NOTE HNO ID: [id number] Author: RIO CARRANZA, RN Service: ? Author Type: Registered Nurse Type: ED Notes Filed: 03/06/2025 18:53 Note Text: Pt having pain in her r heel for a few weeks, pt denies any known injury. Pain is worse with weightbearing Normal [facility] ED PROV NOTEon 03-06-2025 ED PROV NOTE Normal [facility] XR CALCANEUS 2V AXIAL/LAT RT on 03-06-2025 XR CALCANEUS 2V AXIAL/LAT RT Normal [facility] XR FOOT 3V AP/LAT/OBL RTon 0 03-06-2025 XR FOOT 3V AP/LAT/OBL RT Normal [facility] CNPNon 12-18-2024 CNPN Normal [facility] Absolute lymphocyte countOrd ered By: Verónica Lopez on 12-14-2024 Lymphocytes Auto (Unsp spec) [#/Vol] 1.73 10*3/uL 0.83-4.51 [facility] Absolute neutrophil countOrd ered By: Verónica Lopez on 12-14-2024 Neutrophils (Bld) [#/Vol] 4.6 10*3/uL 2.0-7.7 [facility] Anion gap in Serum or Plasma Ordered By: Verónica Lopez on 12-14-2024 Anion gap [Moles/Vol] 11 mmol/L 5-15 [facility] Automated lymphocyte count a s percentage of total leukocytesOrdered By: Verónica Lopez on 12-14-2024 Lymphocytes/100 WBC Auto (Unsp spec) 24.7 % 19-41 [facility] BUN/creatinine ratioOrdered By: Verónica Lopez on 12-14-2024 Urea nitrogen/Creatinine [Mass ratio] 17.8 mg/mg 10-20 [facility] Basophil percentageOrdered B y: Verónica Lopez on 12-14-2024 Basophils/100 WBC (Bld) 1.1 % High 0-1 [facility] Bilirubin, totalOrdered By: Verónica Lopez on 12-14-2024 Bilirubin [Mass/Vol] 0.23 mg/dL 0.00-1.30 [facility] CBC W/Diff, Automatedon 11-18 Absolute Lymph 1.73 X10 3/uL Normal 0.83-4.51 [facility] Comment on above: Performed By: #### L 100.0100, L500.4050 ####[facility] [address] [place], [address] Absolute Neut 4.6 X10 3/uL Normal 2.0-7.7 [facility] Comment on above: Performed By: #### L 100.0100, L500.4050 ####[facility] [address] [place], [address] Basophils/100 WBC (Bld) 1.1 % High 0-1 [facility] Comment on above: Performed By: #### L 100.0100, L500.4050 ####[facility] [address] [place], [address] Eosinophils/100 WBC (Bld) 2.4 % Normal 0-5 [facility] Comment on above: Performed By: #### L 100.0100, L500.4050 ####[facility] [address] [place], [address] Erythrocyte distribution width (RBC) [Ratio] 13.1 % Normal 11.6-14.6 [facility] Comment on above: Performed By: #### L 100.0100, L500.4050 ####[facility] [address] [place], [address] Hematocrit (Bld) [Volume fraction] 43.6 % Normal 37-47 [facility] Comment on above: Performed By: #### L 100.0100, L500.4050 ####[facility] [address] [place], [address] Hemoglobin (Bld) [Mass/Vol] 14.7 g/dL Normal 12.0-15.0 [facility] Comment on above: Performed By: #### L 100.0100, L500.4050 ####[facility] [address] [place], [address] IG% 0.300 Normal 0.0-0.9 [facility] Comment on above: Result Comment: IG% - Immature Granulocytes (promyelocytes, myelocytes and metamyelocytes) > 1% indicates that a LEFT SHIFT is Present. Performed By: #### L 100.0100, L500.4050 ####[facility] [address] [place], [address] Lymphocytes/100 WBC (Bld) 24.7 % Normal 19-41 [facility] Comment on above: Performed By: #### L 100.0100, L500.4050 ####[facility] [address] [place], [address] MCH (RBC) [Entitic mass] 31.8 pg Normal 27.0-32.0 [facility] Comment on above: Performed By: #### L 100.0100, L500.4050 ####[facility] [address] [place], [address] MCHC (RBC) [Mass/Vol] 33.7 g/dL Normal 32-36 [facility] Comment on above: Performed By: #### L 100.0100, L500.4050 ####[facility] [address] [place], [address] MCV (RBC) [Entitic vol] 94.4 fL Normal 81-99 [facility] Comment on above: Performed By: #### L 100.0100, L500.4050 ####[facility] [address] [place], [address] Monocytes/100 WBC (Bld) 5.8 % Normal 0-10 [facility] Comment on above: Performed By: #### L 100.0100, L500.4050 ####[facility] [address] [place], [address] Neutrophils/100 WBC (Bld) 65.7 % Normal 47-70 [facility] Comment on above: Performed By: #### L 100.0100, L500.4050 ####[facility] [address] [place], [address] Nucleated RBC (Bld) [#/Vol] 0 10*3/uL Normal 0-5 [facility] Comment on above: Performed By: #### L 100.0100, L500.4050 ####[facility] [address] [place], [address] Platelet mean volume (Bld) [Entitic vol] 9.6 fL Normal 6.2-12.0 [facility] Comment on above: Performed By: #### L 100.0100, L500.4050 ####[facility] [address] [place], [address] Platelets (Bld) [#/Vol] 278 10*3/uL Normal 150-450 [facility] Comment on above: Performed By: #### L 100.0100, L500.4050 ####[facility] [address] [place], [address] RBC (Bld) [#/Vol] 4.62 10*6/uL Normal 4.2-5.4 [facility] Comment on above: Performed By: #### L 100.0100, L500.4050 ####[facility] [address] [place], [address] RDW SD 44.8 fl High 35.1-43.9 [facility] Comment on above: Performed By: #### L 100.0100, L500.4050 ####[facility] [address] [place], [address] WBC (Bld) [#/Vol] 7.0 10*3/uL Normal 4.4-11.0 [facility] Comment on above: Performed By: #### L 100.0100, L500.4050 ####[facility] [address] [place], [address] Carbon dioxide, total [Moles /volume] in Central venous bloodOrdered By: Verónica Lopez on 12-14-2024 CO2 [Moles/Vol] 25.0 mmol/L 21.0-32.0 [facility] Chloride assayOrdered By: Alexx Lopez on 12-14-2024 Chloride [Moles/Vol] 106 mmol/L 98-108 [facility] Comprehensive Metabolic Prof ilon 12-14-2024 Albumin [Mass/Vol] 4.5 g/dL Normal 3.4-4.8 [facility] Comment on above: Performed By: #### L 100.0100, L500.4050 ####[facility] [address] [place], [address] Albumin/Globulin [Mass ratio] 2.2 {ratio} Normal 0.9-2.4 [facility] Comment on above: Performed By: #### L 100.0100, L500.4050 ####[facility] [address] [place], [address] ALK PHOS 115 U/L High 35-104 [facility] Comment on above: Performed By: #### L 100.0100, L500.4050 ####[facility] [address] [place], [address] ALT [Catalytic activity/Vol] 15 U/L Normal <=34 [facility] Comment on above: Performed By: #### L 100.0100, L500.4050 ####[facility] [address] [place], [address] AST [Catalytic activity/Vol] 19 U/L Normal <=31 [facility] Comment on above: Performed By: #### L 100.0100, L500.4050 ####[facility] [address] [place], [address] Bilirubin [Mass/Vol] 0.23 mg/dL Normal 0.00-1.30 [facility] Comment on above: Performed By: #### L 100.0100, L500.4050 ####[facility] [address] [place], [address] BUN/CRE 17.8 RATIO Normal 10-20 [facility] Comment on above: Performed By: #### L 100.0100, L500.4050 ####[facility] [address] [place], [address] Calcium [Mass/Vol] 9.8 mg/dL Normal 7.6-11.0 [facility] Comment on above: Performed By: #### L 100.0100, L500.4050 ####[facility] [address] [place], [address] Chloride [Moles/Vol] 106 mmol/L Normal 98-108 [facility] Comment on above: Performed By: #### L 100.0100, L500.4050 ####[facility] [address] [place], [address] CO2 [Moles/Vol] 25.0 mmol/L Normal 21.0-32.0 [facility] Comment on above: Performed By: #### L 100.0100, L500.4050 ####[facility] [address] [place], [address] Creatinine [Mass/Vol] 1.06 mg/dL Normal 0.70-1.20 [facility] Comment on above: Performed By: #### L 100.0100, L500.4050 ####[facility] [address] [place], [address] ECRCL 49.00 ml/min Low 50-250 [facility] Comment on above: Performed By: #### L 100.0100, L500.4050 ####[facility] [address] [place], [address] GAP 11 Normal 5-15 [facility] Comment on above: Performed By: #### L 100.0100, L500.4050 ####[facility] [address] [place], [address] GFR/1.73 sq M.predicted among non-blacks MDRD (S/P/Bld) [Vol rate/Area] 57 mL/min/{1.73_m2} Low >60 [facility] Comment on above: Result Comment: mL/m in/1.73m2 CKD-EPI Creatinine Equation (2020) Performed By: #### L 100.0100, L500.4050 ####[facility] [address] [place], [address] Globulin (S) [Mass/Vol] 2.1 g/dL Low 2.2-4.2 [facility] Comment on above: Performed By: #### L 100.0100, L500.4050 ####[facility] [address] [place], [address] Glucose [Mass/Vol] 99 mg/dL Normal 70-99 [facility] Comment on above: Performed By: #### L 100.0100, L500.4050 ####[facility] [address] [place], [address] Potassium [Moles/Vol] 3.9 mmol/L Normal 3.3-5.1 [facility] Comment on above: Performed By: #### L 100.0100, L500.4050 ####[facility] [address] [place], [address] Sodium [Moles/Vol] 142 mmol/L Normal 133-145 [facility] Comment on above: Performed By: #### L 100.0100, L500.4050 ####[facility] [address] [place], [address] T PROT 6.6 g/dL Normal 5.9-8.4 [facility] Comment on above: Performed By: #### L 100.0100, L500.4050 ####[facility] [address] [place], [address] Urea nitrogen [Mass/Vol] 19 mg/dL Normal 4-19 [facility] Comment on above: Performed By: #### L 100.0100, L500.4050 ####[facility] [address] [place], [address] Eosinophil percentageOrdered By: Verónica Lopez on 12-14-2024 Eosinophils/100 WBC (Bld) 2.4 % 0-5 [facility] Erythrocyte distribution wid th ratioOrdered By: Verónica Lopez on 12-14-2024 Erythrocyte distribution width (RBC) [Ratio] 13.1 % 11.6-14.6 [facility] Erythrocyte distribution wid th standard deviationOrdered By: Verónica Lopez on 12-14-2024 Erythrocyte distribution width (RBC) [Ratio] 44.8 fl High 35.1-43.9 [facility] [facility] [place] Glomerular filtration rate ( GFR) estimation/1.73 sq m using serum, plasma, or whole bOrdered By: Verónica Loepz on 12-14-2024 GFR/1.73 sq M.predicted among non-blacks MDRD (S/P/Bld) [Vol rate/Area] 57 mL/min/{1.73_m2} Low >60 [facility] [place] Comment on above: mL/min/1.73m2 CKD-EP I Creatinine Equation (2020) Hematocrit Auto (Bld) [Volum e fraction]Ordered By: Verónica Lopez on 12-14-2024 Hematocrit (Bld) [Volume fraction] 43.6 % 37-47 [facility] [place] Hemoglobin measurementOrdere d By: Verónica Lopez on 12-14-2024 Hemoglobin (Bld) [Mass/Vol] 14.7 g/dL 12.0-15.0 [facility] [place] Immature granulocytes/100 WB C Auto (Bld)Ordered By: Verónica Lopez on 12-14-2024 Immature granulocytes/100 WBC (Bld) 0.300 % 0.0-0.9 [facility] [place] Comment on above: IG% - Immature Granu locytes (promyelocytes, myelocytes and metamyelocytes) > 1% indicates that a LEFT SHIFT is Present. Laboratory - Chemistry and C hemistry - challengeOrdered By: Verónica Lopez on 12-14-2024 AST [Catalytic activity/Vol] 19 U/L <32 [facility] [place] MCV (mean corpuscular volume ) determinationOrdered By: Verónica Lopez 12-14-2024 MCV (RBC) [Entitic vol] 94.4 fL 81-99 [facility] [place] Mean corpuscular hemoglobin (MCH) determinationOrdered By: Verónica Lopez 12-14-2024 MCH (RBC) [Entitic mass] 31.8 pg 27.0-32.0 [facility] [place] Mean corpuscular hemoglobin concentration (MCHC) determinationOrdered By: Verónica Lopez 12-14-2024 MCHC (RBC) [Mass/Vol] 33.7 g/dL 32-36 [facility] Mean platelet volume determi nationOrdered By: Verónica Lopez 12-14-2024 Platelet mean volume (Bld) [Entitic vol] 9.6 fL 6.2-12.0 [facility] [place] Monocyte percentageOrdered B y: Verónica Lopez on 12-14-2024 Monocytes/100 WBC (Bld) 5.8 % 0-10 [facility] [place] Neutrophil percentageOrdered By: Verónica Lopez on 12-14-2024 Neutrophils/100 WBC (Bld) 65.7 % 47-70 [facility] [place] Nucleated red blood cell per centageOrdered By: Verónica Lopez on 12-14-2024 Nucleated RBC/100 WBC (Bld) [Ratio] 0 % 0-5 [facility] [place] Oncology Visit Reporton 11-18 Oncology Visit Report [facility] [place] [address] [place] [address] OFFICE VISIT Date of Service: 12/14/24 1533 MR#: [id number] Acct: [id number] Name: BO JACOB Rep #: [id number] : 1955 From: Verónica Lopez SENIOR QUALITY ASSURANCE ENGINEER SENIOR QUALITY ASSURANCE ENGINEER -C Age/Sex: 69/F Location: [facility] Status: Signed HPI Subjective Date of Service 12/14/24 Chief Complaint h/o breast cancer on endocrine therapy History of Present Illness 69-year-old with stage IA (T1c, N0, M0) G3, ER positive, IA positive, 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 After skipping 2019 screening mammographies she felt a painless lump in the right breast and a diagnostic mammogram followed by a biopsy confirmed malignancy. April 28, 2020 she underwent a partial mastectomy with sentinel lymph node biopsy. Her work-up and surgery were done at [facility], she was then seen by medical oncology at [facility] with the recommendation of an adjuvant course of chemo immune therapy (ACTH/TCH) . She then went for a second opinion at [facility] were adjuvant chemoradiotherapy (TH) again recommended. She eventually made the decision to receive her treatment at [facility] close to home. CT chest June [...] she ever experienced. She was seen in [facility] emergency room and plain x-rays of the [...] Treatment summar (more content not included)... Normal [facility] [place] Platelet countOrdered By: Alexx Lopez on 12-14-2024 Platelets (Bld) [#/Vol] 278 10*3/uL 150-450 [facility] [place] Potassium measurement (mass/ volume)Ordered By: Verónica Lopez on 12-14-2024 Potassium (Unsp spec) [Mass/Vol] 3.9 mmol/L 3.3-5.1 [facility] [place] RBC Auto (Bld) [#/Vol]Ordere d By: Verónica Lopez on 12-14-2024 RBC (Bld) [#/Vol] 4.62 10*6/uL 4.2-5.4 [facility] Serum creatinine measurement (mass/volume)Ordered By: Verónica Lopez on 12-14-2024 Creatinine [Mass/Vol] 1.06 mg/dL 0.70-1.20 [facility] Serum globulin measurementOr dered By: Verónica Lopez on 12-14-2024 Globulin (S) [Mass/Vol] 2.1 g/dL Low 2.2-4.2 [facility] [place] Serum glucose measurement (m ass/volume)Ordered By: Verónica Lopez on 12-14-2024 Glucose [Mass/Vol] 99 mg/dL 70-99 [facility] Serum or plasma alanine torres otransferase (ALT) measurementOrdered By: Verónica Lopez on 12-14-2024 ALT [Catalytic activity/Vol] 15 U/L <35 [facility] [place] Serum or plasma albumin giovany urement (mass/volume)Ordered By: Verónica Lopez on 12-14-2024 Albumin [Mass/Vol] 4.5 g/dL 3.4-4.8 [facility] Serum or plasma albumin/glob ulin mass ratioOrdered By: Verónica Lopez on 12-14-2024 Albumin/Globulin [Mass ratio] 2.2 {ratio} 0.9-2.4 [facility] [place] Serum or plasma alkaline semaj sphatase measurementOrdered By: Verónica Lopez on 12-14-2024 ALP [Catalytic activity/Vol] 115 U/L High 35-104 [facility] [place] Serum or plasma calcium giovany urement (mass/volume)Ordered By: Verónica Lopez on 12-14-2024 Calcium [Mass/Vol] 9.8 mg/dL 7.6-11.0 [facility] Serum or plasma urea nitroge n measurement (mass/volume)Ordered By: Verónica Lopez on 12-14-2024 Urea nitrogen [Mass/Vol] 19 mg/dL 4-19 [facility] [place] Sodium levelOrdered By: Verónica Lopez on 12-14-2024 Sodium [Moles/Vol] 142 mmol/L 133-145 [facility] Total proteinOrdered By: Erica Lopez on 12-14-2024 Protein [Mass/Vol] 6.6 g/dL 5.9-8.4 [facility] White blood cell (WBC) count Ordered By: Verónica Lopez on 12-14-2024 WBC (Bld) [#/Vol] 7.0 10*3/uL 4.4-11.0 [facility] CNNURSEon 12-09-2024 CNNURSE Normal [facility] CNPNon 12-09-2024 CNPN Normal [facility] CNPNon 11-06-2024 CNPN Normal [facility] CNOVon 11-04-2024 CNOV Normal [facility] Bone density reportOrdered B y: Jessie Sara on 11-03-2024 Study report Skeletal system DXA [facility] Imaging Services [address] [place], [place] [address] Dexa Bone Density Study MR#: [id number] Acct: [id number] Name: BO JACOBILE Rep #: [id number] : 1955 F 69 From: Christina Melo MD PCP: KEYA Reaves Status: REG CLI Study:Dexa Bone Density Study Date of Exam: 11/03/24 Exam# [id number] Ordering Dr: Verónica Flores NP PROCEDURE: DEXA [...] is a trademark of the [employer]'s [place] for Metabolic Bone Disease, World Health Organization (WHO) Collaborating [place]. 1-The 10-year probability of fracture may be lower than reported if the patient has received treatment. 2-Major Osteoporotic Fracture: Clinical Spine, Forearm, Hip or Shoulder. The T-scores are also available for review on the [facility] PACS or by accessing the [facility] electronic medical record. BD/Dexa Bone Density Study IMPRESSION: Improving BMD of the lumbar spine and bilateral hips. Reading Location: [facility] CC: KEYA Dias; KEYA Lopez ~ Emergency Specialist: Signed [facility] [place] Breast imaging reportOrdered By: Sherine Gómez on 11-03-2024 Study report [facility] Imaging Services [address] [place], [place] [id number] SCRN MAMM (CAD)W/AQUILES BILAT MR#: [id number] Acct: [id number] Name: BO JACOB Rep #: [id number] : 1955 F 69 From: Myesha Gómez MD PCP: KEYA Reaves Status: REG CLI Study:SCRN MAMM (CAD)W/AQUILES BILAT Date of Exa m: 11/03/24 Exam# [id number] Ordering Dr: Verónica Flores NP PROCEDURE: SCRN [...] architectural distortion, or suspicious calcifications. BI/SCRN MAMM (CAD)W/QAUILES BILAT IMPRESSION: There is no mammographic evidence of malignancy. BI-RADS 2: BENIGN. RECOMMEND ANNUAL MAMMOGRAPHIC SCREENING. Follow-up code: Routine Follow-up The patient will be notified of the results by letter. Reading Location: [facility] CC: KEYA Dias; KEYA Lopez ~ Emergency Specialist: Signed [facility] [place] Dexa Bone Density Studyon Dexa Bone Density Study [facility] Imaging Services [address] [place] [address] Dexa Bone Density Study MR#: [id number] Acct: [id number] Name: BO JACOB Rep #: [id number] : 1955 F 69 From: Jessie Melo MD PCP: KEYA Reaves Status: REG CLI Study: Dexa Bone Density Study Date of Exam: 11/03/24 Exam# [id number] Ordering Dr: Verónica Lopez NP, NP PROCEDURE: DEXA BONE DENSITY STUDY [...] is a trademark of the [employer] [place] for Metabolic Bone Disease, World Health Organization (WHO) Collaborating [place]. 1-The 10-year probability of fracture may be lower than reported if the patient has received treatment. 2-Major Osteoporotic Fracture: Clinical Spine, Forearm, Hip or Shoulder. The T-scores are also available for review on the [facility] PACS or by accessing the [facility] electronic medical record. BD/Dexa Bone Density Study IMPRESSION: Improving BMD of the lumbar spine and bilateral hips. Reading Location: [facility] CC: KEYA Dias; KEYA Lopez Emergency Specialist: Signed Normal [facility] [place] SCRN MAMM (CAD)W/AQUILES BILATo n 11-03-2024 SCRN MAMM (CAD)W/AQUILES BILAT [facility] Imaging Services [address] [place] [address] SCRN MAMM (CAD)W/AQUILES BILAT MR#: [id number] Acct: [id number] Name: BO JACOB Rep #: [id number] : 1955 F 69 From: Sherine Gómez MD PCP: KEYA Reaves Status: REG CLI Study: SCRN MAMM (CAD)W/AQUILES BILAT Date of Exam: 10/17 04/12 Exam# [id number] Ordering Dr: Verónica Lopez NP, NP PROCEDURE: [...] of the results by letter. Reading Location: [id number] CC: KEYA Dias; KEYA Lopez Emergency Specialist: Signed Normal [facility] [place] Abdomen Limitedon 10-31-2024 Abdomen Limited [facility] Imaging Services [address] [place], [place] [address] Abdomen Limited MR#: [id number] Acct: [id number] Name: BO JACOB Rep #: [id number] : 1955 F 69 From: Paulo Wilkerson PCP: KEYA Reaves Status: REG CLI Study: Abdomen Limited Date of Exam: 10/31/24 Exam# [id number] Ordering Dr: Antonia Escalante MD PROCEDURE: ABDOMEN [...] Small gallbladder polyps. Reading Location: [facility] CC: SENIOR QUALITY ASSURANCE ENGINEER-Jennifer Dias; Dr. Antonia Escalante MD Emergency Specialist: Signed Normal [facility] [place] CNOVon 10-28-2024 CNOV Normal [facility] Magnetic resonance imaging r eportOrdered By: Jessie Cardenas on 10-28-2024 Study report [facility] Imaging Services [address] [place] [address] Spine Lumbar (Routine) MR#: [id number] Acct: [id number] Name: BO JACOB Rep #: [id number] : 1955 F 69 From: Christina Cardenas MD PCP: KEYA Reaves Status: REG CLI Study:Spine Lumbar (Routine) Date of Exam: 10/27/24 Exam# [id number] Ordering Dr: Aruna Barclay MD PROCEDURE: SPINE [...] foraminal region. Ligamentum flavum hypertrophy. Facet arthropathy. Djmeimjv-uq-ewfwef focal spinal canal stenosis with virtually complete effacement of CSF. Narrowing of the bilateral lateral recesses. Mild/moderate bilateral foraminal stenoses. L5-S1: Mild diffuse disc bulging. Facet arthropathy. No significant focal spinal canal stenosis. Mild bilateral foraminal stenosis. Other: At least imaged three incompletely imaged right lobe hepatic lesions superiorly and inferiorly on the supervisor stripping up to 2.5 cm, possibly cysts, but not well evaluated. Cervical and thoracic spondylosis not well evaluated. MRI/Spine Lumbar (Routine) IMPRESSION: 1. Multilevel spondylosis as above. Spinal canal stenoses up to fdbddyuo-lt-qprgql at L4-L5. No high-grade foraminal stenosis identified. [...] 3. Additional description as above. Reading Location: [id number] CC: KEYA Dias; Dr. Mariajose Barclay MD ~ Emergency Specialist: Signed [facility] [place] Radiation Oncology Visiton 0 10-27-2024 Radiation Oncology Visit [facility] [place] [address] OFFICE VISIT Date of Service: 10/27/24 1430 MR#: [id number] Acct: [id number] Name: BO JACOB Rep #: [id number] : 1955 From: João Kong DO Age/Sex: 69/F Location: [facility] Status: Signed Intake Vital Signs 10/08/24 17:44 [...] patient in pain?: No Allergies acetaminophen (From [place]) Allergy (Intermediate, Verified 10/27/24 14:32) Rash adhesive tape Allergy (Intermediate, Verified 10/27/24 14:32) Hives hydrocodone (From [place]) Allergy (Intermediate, Verified 10/27/24 14:32) Rash oxycodone [...] Reaction Status Date / Time acetaminophen (From [place]) Allergy Intermediate Rash Verified 10/27/24 14:32 adhesive tape Allergy Intermediate Hives Verified 10/27/24 14:32 hydrocodone (From [place]) Allergy Intermediate Rash Verified 10/27/24 14:32 oxycodone Allergy Intermediate Rash Verified 10/27/24 14:32 anastrozole AdvReac Severe joint Verified 10/27/24 14:32 pain, anxiety, hot flashes Famil (more content not included)... Normal [facility] [place] Spine Lumbar (Routine)on Spine Lumbar (Routine) [facility] Imaging Services [facility] [place] [address] Spine Lumbar (Routine) MR#: [id number] Acct: [id number] Name: BO JACOB Rep #: [id number] : 1955 F 69 From: Jessie Cardenas MD PCP: KEYA Reaves Status: REG CLI Study: Spine Lumbar (Routine) Date of Exam: 10/27/24 Exam# [id number] Ordering Dr: Mariajose Barclay MD PROCEDURE: SPINE [...] foraminal region. Ligamentum flavum hypertrophy. Facet arthropathy. Qrndtniz-vn-acdzae focal spinal canal stenosis with virtually complete effacement of CSF. Narrowing of the bilateral lateral recesses. Mild/moderate bilateral foraminal stenoses. L5-S1: Mild diffuse disc bulging. Facet arthropathy. No significant focal spinal canal stenosis. Mild bilateral foraminal stenosis. Other: At least imaged three incompletely imaged right lobe hepatic lesions superiorly and inferiorly on the supervisor stripping up to 2.5 cm, possibly cysts, but not well evaluated. Cervical and thoracic spondylosis not well evaluated. MRI/Spine Lumbar (Routine) IMPRESSION: 1. Multilevel spondylosis as above. Spinal canal stenoses up to jwqajkmc-qh-wnnknu at L4-L5. No high-grade foraminal stenosis identified. [...] 3. Additional description as above. Reading Location: [id number] CC: KEYA Dias; Dr. Mariajose Barclay MD Emergency Specialist: Signed [facility] 10-26-2024 [facility] Normal [facility] 10-01-2024 [facility] Basic metabolic 2000 panelon 09-30-2024 Anion gap [Moles/Vol] 10 mmol/L Normal 8-15 [facility] Comment on above: Order Comment: Speci men Type: BLOOD SPECIMENOrdering Facility: [facility] Address: [address] [place] [address] Performed By: #### 2 4321-2 ####[facility] LABORATORYCLIA [id number] [place] [address] [place] Calcium [Mass/Vol] 8.1 mg/dL Low 8.5-10.2 [facility] Comment on above: Order Comment: Speci men Type: BLOOD SPECIMENOrdering Facility: [facility] Address: [address] [place] [address] Performed By: #### 2 4321-2 ####[facility] LABORATORYCLIA [id number] [place] [address] [place] Chloride [Moles/Vol] 107 mmol/L Normal 98-107 [facility] Comment on above: Order Comment: Speci men Type: BLOOD SPECIMENOrdering Facility: [facility] Address: [address] [place] [address] Performed By: #### 2 4321-2 ####[facility] LABORATORYCLIA [id number] [address] [place] CO2 [Moles/Vol] 20 mmol/L Low 22-30 [facility] Comment on above: Order Comment: Speci men Type: BLOOD SPECIMENOrdering Facility: [facility] Address: [address] [place] [address] Performed By: #### 2 4321-2 ####[facility] LABORATORYCLIA [id number] [place] [address] [place] Creatinine [Mass/Vol] 0.85 mg/dL Normal 0.58-0.96 [facility] Comment on above: Order Comment: Speci men Type: BLOOD SPECIMENOrdering Facility: [facility] Address: [address] [place] [address] Performed By: #### 2 4321-2 ####[facility]ORATORYCLIA [id number] [place] [address] [place] Creatinine and Glomerular filtration rate.predicted panel (S/P/Bld) 74 mL/min/1.73m??? Normal >=60 [facility] Comment on above: Order Comment: Prince omer Type: BLOOD SPECIMENOrdering Facility: [facility] Address: [address] [place] [address] Result Comment: Conchita mated Glomerular Filtration Rate [...] actual GFR. Performed By: #### 2 4321-2 ####[facility] LABORATORYCLIA [id number] [place] [address] [place] Glucose [Mass/Vol] 129 mg/dL High 74-99 [facility] Comment on above: Order Comment: Prince omer Type: BLOOD SPECIMENOrdering Facility: [facility] Address: [address] [place] [address] Result Comment: The [place] Diabetes Association (ADA) provides guidance for cutoff [...] Standards of Medical Care in Diabetes 2016, [place] [employer] Association. Diabetes Care. 2016.39(Suppl 1). Performed By: #### 2 4321-2 ####[facility] LABORATORYCLIA [id number] [place] [id number] [place] Potassium [Moles/Vol] 3.7 mmol/L Normal 3.7-5.1 [facility] Comment on above: Order Comment: Prince omer Type: BLOOD SPECIMENOrdering Facility: [facility] Address: [address] [place] [address] Performed By: #### 2 4321-2 ####[facility]ORATORYCLIA [id number] [place] [address] [place] Sodium [Moles/Vol] 137 mmol/L Normal 136-144 [facility] Comment on above: Order Comment: Speci men Type: BLOOD SPECIMENOrdering Facility: [facility] Address: [address] [place] [address] Performed By: #### 2 4321-2 ####[facility] LABORATORYCLIA [id number] [place] [address] [place] Urea nitrogen [Mass/Vol] 14 mg/dL Normal 7-21 [facility] Comment on above: Order Comment: Speci men Type: BLOOD SPECIMENOrdering Facility: [facility] Address: [address] [place] [address] Performed By: #### 2 4321-2 ####[facility] LABORATORYCLIA [id number] [place] [address] [place] Anion gap [Moles/Vol] 11 mmol/L Normal 8-15 [facility] Comment on above: Order Comment: Speci men Type: BLOOD SPECIMENOrdering Facility: [facility] Address: [address] [place] [address] Performed By: #### 2 4321-2 ####[facility] LABORATORYCLIA [id number] [place] [address] [place] Calcium [Mass/Vol] 9.2 mg/dL Normal 8.5-10.2 [facility] Comment on above: Order Comment: Speci men Type: BLOOD SPECIMENOrdering Facility: [facility] Address: [address] [place] [address] Performed By: #### 2 4321-2 ####[facility]ORATORYCLIA [id number] [place] [address] [place] Chloride [Moles/Vol] 97 mmol/L Low 98-107 [facility] Comment on above: Order Comment: Speci men Type: BLOOD SPECIMENOrdering Facility: [facility] Address: [address] [place] [address] Performed By: #### 2 4321-2 ####[facility] LABORATORYCLIA [id number] [place] [id number] [place] CO2 [Moles/Vol] 21 mmol/L Low 22-30 [facility] Comment on above: Order Comment: Speci men Type: BLOOD SPECIMENOrdering Facility: [facility] Address: [address] [place] [address] Performed By: #### 2 4321-2 ####[facility] LABORATORYCLIA [id number] [address] STATES OF [facility] Creatinine [Mass/Vol] 0.94 mg/dL Normal 0.58-0.96 [facility] Comment on above: Order Comment: Speci men Type: BLOOD SPECIMENOrdering Facility: [facility] Address: [address] [place] [address] Performed By: #### 2 4321-2 ####[facility] LABORATORYCLIA [id number] [address] Creatinine and Glomerular filtration rate.predicted panel (S/P/Bld) 66 mL/min/1.73m??? Normal >=60 [facility] Comment on above: Order Comment: Speci men Type: BLOOD SPECIMENOrdering Facility: [facility] Address: [address] [place] [address] Result Comment: Conchita mated Glomerular Filtration Rate [...] actual GFR. Performed By: #### 2 4321-2 ####[facility] LABORATORYCLIA [id number] [address] [place] Glucose [Mass/Vol] 97 mg/dL Normal 74-99 [facility] Comment on above: Order Comment: Speci men Type: BLOOD SPECIMENOrdering Facility: [facility] Address: [address] [place] [address] Result Comment: The [place] Diabetes Association (ADA) provides guidance for cutoff [...] Standards of Medical Care in Diabetes 2016, [place] Diabetes Association. Diabetes Care. 2016.39(Suppl 1). Performed By: #### 2 4321-2 ####[facility] LABORATORYCLIA [id number] [place] [address] [place] Potassium [Moles/Vol] 3.7 mmol/L Normal 3.7-5.1 [facility] Comment on above: Order Comment: Prince peter Type: BLOOD SPECIMENOrdering Facility: [facility] Address: [address] [place] [address] Performed By: #### 2 4321-2 ####[facility] LABORATORYCLIA [id number] [place] [address] [place] Sodium [Moles/Vol] 129 mmol/L Low 136-144 [facility] Comment on above: Order Comment: Anthonyi men Type: BLOOD SPECIMENOrdering Facility: [facility] Address: [address] [place] [address] Performed By: #### 2 4321-2 ####[facility] LABORATORYCLIA [id number] [place] [address] [place] Urea nitrogen [Mass/Vol] 18 mg/dL Normal 7-21 [facility] Comment on above: Order Comment: Anthonyi men Type: BLOOD SPECIMENOrdering Facility: [facility] Address: [address] [place] [address] Performed By: #### 2 4321-2 ####[facility] LABORATORYCLIA [id number] [place] [address] [place] CASE MANAGEMon 09-30-2024 CASE MANAGEM Normal [facility] CASE MANAGEM Normal [facility] CNDSon 09-30-2024 CNDS Normal [facility] CNPNon 09-30-2024 CNPN Normal [facility] CONSULT PROGon 09-30-2024 CONSULT PROG Normal [facility] CONSULT PROG Normal [facility] THERAPY NTon 09-30-2024 THERAPY NT Normal [facility] THERAPY NT Normal [facility] CBC W Auto Differential pane l (Bld)on 09-29-2024 Basophils (Bld) [#/Vol] 0.05 10*3/uL Normal <0.11 [facility] Comment on above: Order Comment: Speci men Type: BLOOD SPECIMENOrdering Facility: [facility] Address: [address] [place] [address] Performed By: #### 5 7021-8 ####[facility] LABORATORYCLIA [id number] [address] [place] Basophils/100 WBC (Bld) 0.8 % Normal [facility] Comment on above: Order Comment: Speci men Type: BLOOD SPECIMENOrdering Facility: [facility] Address: [address] [place] [address] Performed By: #### 5 7021-8 ####[facility] LABORATORYCLIA [id number] [address] [place] Differential cell count method Nom (Bld) Auto Normal [facility] Comment on above: Order Comment: Speci men Type: BLOOD SPECIMENOrdering Facility: [facility] Address: [address] [place] [address] Performed By: #### 5 7021-8 ####[facility]ORATORYCLIA [id number] [place] [address] [place] Eosinophils (Bld) [#/Vol] 0.23 10*3/uL Normal <0.46 [facility] Comment on above: Order Comment: Speci men Type: BLOOD SPECIMENOrdering Facility: [facility] Address: [address] [place] [address] Performed By: #### 5 7021-8 ####[facility] LABORATORYCLIA [id number] [address] [place] Eosinophils/100 WBC (Bld) 3.8 % Normal [facility] Comment on above: Order Comment: Speci men Type: BLOOD SPECIMENOrdering Facility: [facility] Address: [address] [place] [address] Performed By: #### 5 7021-8 ####[facility] LABORATORYCLIA [id number] [address] [place] Erythrocyte distribution width (RBC) [Ratio] 12.4 % Normal 11.5-15.0 [facility] Comment on above: Order Comment: Speci men Type: BLOOD SPECIMENOrdering Facility: [facility] Address: [address] [place] [address] Performed By: #### 5 7021-8 ####[facility] LABORATORYCLIA [id number] [address] STATES [facility] Hematocrit (Bld) [Volume fraction] 43.3 % Normal 36.0-46.0 [facility] Comment on above: Order Comment: Speci men Type: BLOOD SPECIMENOrdering Facility: [facility] Address: [address] [place] [address] Performed By: #### 5 7021-8 ####[facility] LABORATORYCLIA [id number] [address] [place] Hemoglobin (Bld) [Mass/Vol] 14.9 g/dL Normal 11.5-15.5 [facility] Comment on above: Order Comment: Speci men Type: BLOOD SPECIMENOrdering Facility: [facility] Address: [address] [place] [address] Performed By: #### 5 7021-8 ####[facility] LABORATORYCLIA [id number] [place] [address] [place] Immature granulocytes (Bld) [#/Vol] 0.04 10*3/uL Normal <0.10 [facility] Comment on above: Order Comment: Speci men Type: BLOOD SPECIMENOrdering Facility: [facility] Address: [address] [place] [address] Performed By: #### 5 7021-8 ####[facility] LABORATORYCLIA [id number] [address] [place] Immature granulocytes/100 WBC (Bld) 0.7 % Normal [facility] Comment on above: Order Comment: Speci men Type: BLOOD SPECIMENOrdering Facility: [facility] Address: [address] [place] [address] Performed By: #### 5 7021-8 ####[facility] LABORATORYCLIA [id number] [address] [place] Lymphocytes (Bld) [#/Vol] 1.10 10*3/uL Normal 1.00-4.00 [facility] Comment on above: Order Comment: Speci men Type: BLOOD SPECIMENOrdering Facility: [facility] Address: [address] [place] [address] Performed By: #### 5 7021-8 ####[facility] LABORATORYCLIA [id number] [address] Lymphocytes/100 WBC (Bld) 18.4 % Normal [facility] Comment on above: Order Comment: Speci men Type: BLOOD SPECIMENOrdering Facility: [facility] Address: [address] [place] [address] Performed By: #### 5 7021-8 ####[facility]ORATORYCLIA [id number] [place] [address] [place] MCH (RBC) [Entitic mass] 30.9 pg Normal 26.0-34.0 [facility] Comment on above: Order Comment: Speci men Type: BLOOD SPECIMENOrdering Facility: [facility] Address: [address] [place] [address] Performed By: #### 5 7021-8 ####[facility]ORATORYCLIA [id number] [address] STATES OF [facility] MCHC (RBC) [Mass/Vol] 34.4 g/dL Normal 30.5-36.0 [facility] Comment on above: Order Comment: Speci men Type: BLOOD SPECIMENOrdering Facility: [facility] Address: [address] [place] [address] Performed By: #### 5 7021-8 ####[facility] LABORATORYCLIA [id number] [address] OF [facility] MCV (RBC) [Entitic vol] 89.8 fL Normal 80.0-100.0 [facility] Comment on above: Order Comment: Speci men Type: BLOOD SPECIMENOrdering Facility: [facility] Address: [address] [place] [address] Performed By: #### 5 7021-8 ####[facility] LABORATORYCLIA [id number] [address] [place] Monocytes (Bld) [#/Vol] 0.56 10*3/uL Normal <0.87 [facility] Comment on above: Order Comment: Speci men Type: BLOOD SPECIMENOrdering Facility: [facility] Address: [address] [place] [address] Performed By: #### 5 7021-8 ####[facility] LABORATORYCLIA [id number] [address] STATES [facility] Monocytes/100 WBC (Bld) 9.4 % Normal [facility] Comment on above: Order Comment: Speci men Type: BLOOD SPECIMENOrdering Facility: [facility] Address: [address] [place] [address] Performed By: #### 5 7021-8 ####[facility] LABORATORYCLIA [id number] [address] [place] Neutrophils (Bld) [#/Vol] 4.00 10*3/uL Normal 1.45-7.50 [facility] Comment on above: Order Comment: Speci men Type: BLOOD SPECIMENOrdering Facility: [facility] Address: [address] [place] [address] Performed By: #### 5 7021-8 ####[facility]ORATORYCLIA [id number] [address] Neutrophils/100 WBC (Bld) 66.9 % Normal [facility] Comment on above: Order Comment: Speci men Type: BLOOD SPECIMENOrdering Facility: [facility] Address: [address] [place] [address] Performed By: #### 5 7021-8 ####[facility] LABORATORYCLIA [id number] [address] [place] Nucleated RBC (Bld) [#/Vol] 10*3/uL Normal <0.01 [facility] Comment on above: Order Comment: Speci men Type: BLOOD SPECIMENOrdering Facility: [facility] Address: [address] [place] [address] Performed By: #### 5 7021-8 ####[facility] LABORATORYCLIA [id number] [address] [place] Nucleated RBC/100 WBC (Bld) [Ratio] 0.0 /100 WBC Normal [facility] Comment on above: Order Comment: Speci men Type: BLOOD SPECIMENOrdering Facility: [facility] Address: [address] [place] [address] Performed By: #### 5 7021-8 ####[facility] LABORATORYCLIA [id number] [address] [place] Platelet mean volume (Bld) [Entitic vol] 9.6 fL Normal 9.0-12.7 [facility] Comment on above: Order Comment: Speci men Type: BLOOD SPECIMENOrdering Facility: [facility] Address: [address] [place] [address] Performed By: #### 5 7021-8 ####[facility]ORATORYCLIA [id number] [place] [address] [place] Platelets (Bld) [#/Vol] 278 10*3/uL Normal 150-400 [facility] Comment on above: Order Comment: Speci men Type: BLOOD SPECIMENOrdering Facility: [facility] Address: [address] [place] [address] Performed By: #### 5 7021-8 ####[facility] LABORATORYCLIA [id number] [address] OF [facility] RBC (Bld) [#/Vol] 4.82 10*6/uL Normal 3.90-5.20 [facility] Comment on above: Order Comment: Speci men Type: BLOOD SPECIMENOrdering Facility: [facility] Address: [address] [place] [address] Performed By: #### 5 7021-8 ####[facility] LABORATORYCLIA [id number] [address] OF [facility] WBC (Bld) [#/Vol] 5.98 10*3/uL Normal 3.70-11.00 [facility] Comment on above: Order Comment: Speci men Type: BLOOD SPECIMENOrdering Facility: [facility] Address: [address] [place] [address] Performed By: #### 5 7021-8 ####[facility] LABORATORYCLIA [id number] [address] Comprehensive metabolic 2000 panelon 09-29-2024 Albumin [Mass/Vol] 4.0 g/dL Normal 3.9-4.9 [facility] Comment on above: Order Comment: Speci men Type: BLOOD SPECIMENOrdering Facility: [facility] Address: [address] [place] [address] Performed By: #### 2 4323-8 ####[facility] LABORATORYCLIA [id number] [address] STATES OF [facility] ALP [Catalytic activity/Vol] 127 U/L High 34-123 [facility] Comment on above: Order Comment: Speci men Type: BLOOD SPECIMENOrdering Facility: [facility] Address: [address] [place] [address] Performed By: #### 2 4323-8 ####[facility] LABORATORYCLIA [id number] [place] [address] [place] ALT With P-5'-P [Catalytic activity/Vol] 31 U/L Normal 7-38 [facility] Comment on above: Order Comment: Speci men Type: BLOOD SPECIMENOrdering Facility: [facility] Address: [address] [place] [address] Performed By: #### 2 4323-8 ####[facility] LABORATORYCLIA [id number] [place] [address] [place] Anion gap [Moles/Vol] 11 mmol/L Normal 8-15 [facility] Comment on above: Order Comment: Speci men Type: BLOOD SPECIMENOrdering Facility: [facility] Address: [address] [place] [address] Performed By: #### 2 4323-8 ####[facility] LABORATORYCLIA [id number] [place] [address] [place] AST With P-5'-P [Catalytic activity/Vol] 22 U/L Normal 13-35 [facility] Comment on above: Order Comment: Speci men Type: BLOOD SPECIMENOrdering Facility: [facility] Address: [address] [place] [address] Performed By: #### 2 4323-8 ####[facility] LABORATORYCLIA [id number] [place] [address] [place] Bilirubin [Mass/Vol] 0.6 mg/dL Normal 0.2-1.3 [facility] Comment on above: Order Comment: Speci men Type: BLOOD SPECIMENOrdering Facility: [facility] Address: [address] [place] [address] Performed By: #### 2 4323-8 ####[facility] LABORATORYCLIA [id number] [address] [place] Calcium [Mass/Vol] 9.1 mg/dL Normal 8.5-10.2 [facility] Comment on above: Order Comment: Speci men Type: BLOOD SPECIMENOrdering Facility: [facility] Address: [address] [place] [address] Performed By: #### 2 4323-8 ####[facility] LABORATORYCLIA [id number] [address] [place] Chloride [Moles/Vol] 101 mmol/L Normal 98-107 [facility] Comment on above: Order Comment: Speci men Type: BLOOD SPECIMENOrdering Facility: [facility] Address: [address] [place] [address] Performed By: #### 2 4323-8 ####[facility] LABORATORYCLIA [id number] [address] OF [facility] CO2 [Moles/Vol] 23 mmol/L Normal 22-30 [facility] Comment on above: Order Comment: Speci men Type: BLOOD SPECIMENOrdering Facility: [facility] Address: [address] [place] [address] Performed By: #### 2 4323-8 ####[facility] LABORATORYCLIA [id number] [address] OF [facility] Creatinine [Mass/Vol] 0.93 mg/dL Normal 0.58-0.96 [facility] Comment on above: Order Comment: Speci men Type: BLOOD SPECIMENOrdering Facility: [facility] Address: [address] [place] [address] Performed By: #### 2 4323-8 ####[facility] LABORATORYCLIA [id number] [address] Creatinine and Glomerular filtration rate.predicted panel (S/P/Bld) 67 mL/min/1.73m??? Normal >=60 [facility] Comment on above: Order Comment: Speci men Type: BLOOD SPECIMENOrdering Facility: [facility] Address: [address] [place] [address] Result Comment: Conchita mated Glomerular Filtration Rate [...] actual GFR. Performed By: #### 2 4323-8 ####[facility] LABORATORYCLIA [id number] [place] [address] [place] Glucose [Mass/Vol] 94 mg/dL Normal 74-99 [facility] Comment on above: Order Comment: Prince peter Type: BLOOD SPECIMENOrdering Facility: [facility] Address: [address] [place] [address] Result Comment: The [place] [employer] (ADA) provides guidance for cutoff [...] Standards of Medical Care in Diabetes 2016, [place] [employer]. Diabetes Care. 2016.39(Suppl 1). Performed By: #### 2 4323-8 ####[facility] LABORATORYCLIA [id number] [place] [address] [place] Potassium [Moles/Vol] 4.3 mmol/L Normal 3.7-5.1 [facility] Comment on above: Order Comment: Prince peter Type: BLOOD SPECIMENOrdering Facility: [facility] Address: [address] [place] [address] Performed By: #### 2 4323-8 ####[facility] LABORATORYCLIA [id number] [place] [id number] [place] Protein [Mass/Vol] 6.1 g/dL Low 6.3-8.0 [facility] Comment on above: Order Comment: Prince peter Type: BLOOD SPECIMENOrdering Facility: [facility] Address: [address] [place] [address] Performed By: #### 2 4323-8 ####[facility] LABORATORYCLIA [id number] [place] [address] [place] Sodium [Moles/Vol] 135 mmol/L Low 136-144 [facility] Comment on above: Order Comment: Speci men Type: BLOOD SPECIMENOrdering Facility: [facility] Address: [address] [place] [address] Performed By: #### 2 4323-8 ####[facility] LABORATORYCLIA [id number] [place] [id number] [place] Urea nitrogen [Mass/Vol] 22 mg/dL High 7-21 [facility] Comment on above: Order Comment: Speci men Type: BLOOD SPECIMENOrdering Facility: [facility] Address: [address] [place] [address] Performed By: #### 2 4323-8 ####[facility] LABORATORYCLIA [id number] [place] [address] [place] Basic metabolic 2000 panelon 09-28-2024 Anion gap [Moles/Vol] 14 mmol/L Normal 8-15 [facility] Comment on above: Order Comment: Speci men Type: BLOOD SPECIMENOrdering Facility: [facility] Address: [address] [place] [address] Performed By: #### 1 9123-9, 60524-1, 2777-1 ####[facility] LABORATORYCLIA [id number] [place] [address] [place] Calcium [Mass/Vol] 9.9 mg/dL Normal 8.5-10.2 [facility] Comment on above: Order Comment: Speci men Type: BLOOD SPECIMENOrdering Facility: [facility] Address: [address] [place] [address] Performed By: #### 1 9123-9, 94955-7, 2777-1 ####[facility] LABORATORYCLIA [id number] [place] [id number] [place] Chloride [Moles/Vol] 96 mmol/L Low 98-107 [facility] Comment on above: Order Comment: Speci men Type: BLOOD SPECIMENOrdering Facility: [facility] Address: [address] [place], [place] [address] Performed By: #### 1 9123-9, 79245-0, 2776-08 ####[facility]PITALCLIA [id number] [address] CO2 [Moles/Vol] 23 mmol/L Normal 22-30 [facility] Comment on above: Order Comment: Speci men Type: BLOOD SPECIMENOrdering Facility: [facility] Address: [address] [place] [address] Performed By: #### 1 9123-9, 89547-7, 2776-08 ####[facility] HOSPITALIA [id number] [address] Creatinine [Mass/Vol] 0.90 mg/dL Normal 0.58-0.96 [facility] Comment on above: Order Comment: Speci men Type: BLOOD SPECIMENOrdering Facility: [facility] Address: [address] [place] [address] Performed By: #### 1 9123-9, 92355-8, 2776-08 ####[facility] HOSPITALIA [id number] [address] Creatinine and Glomerular filtration rate.predicted panel (S/P/Bld) 69 mL/min/1.73m??? Normal >=60 [facility] Comment on above: Order Comment: Speci men Type: BLOOD SPECIMENOrdering Facility: [facility] Address: [address] [place] [address] Result Comment: Conchita mated Glomerular Filtration Rate [...] actual GFR. Performed By: #### 1 9123-9, 57155-0, 2776- ####[facility] HOSPITALIA [id number] [place] [address] [place] Glucose [Mass/Vol] 121 mg/dL High 74-99 [facility] Comment on above: Order Comment: [place] men Type: BLOOD SPECIMENOrdering Facility: [facility] Address: [address] [place] [address] Result Comment: The [place] Diabetes [employer] (ADA) provides guidance for cutoff [...] Standards of Medical Care in Diabetes 2016, [place] [employer]. Diabetes Care. 2016.39(Suppl 1). Performed By: #### 1 9123-9, 90353-5, 2776-08 ####[facility] LABORATORYCLIA [id number] [place] [address] [place] Potassium [Moles/Vol] 4.0 mmol/L Normal 3.7-5.1 [facility] Comment on above: Order Comment: Prince omer Type: BLOOD SPECIMENOrdering Facility: [facility] Address: [address] [place] [address] Performed By: #### 1 9123-9, 04872-9, 2776-08 ####[facility] LABORATORYCLIA [id number] [place] [address] [place] Sodium [Moles/Vol] 133 mmol/L Low 136-144 [facility] Comment on above: Order Comment: Prince omer Type: BLOOD SPECIMENOrdering Facility: [facility] Address: [address] [place] [address] Performed By: #### 1 9123-9, 83024-4, 2776-08 ####[facility] LABORATORYCLIA [id number] [place] [address] [place] Urea nitrogen [Mass/Vol] 17 mg/dL Normal 7-21 [facility] Comment on above: Order Comment: Speci men Type: BLOOD SPECIMENOrdering Facility: [facility] Address: [address] [place] [address] Performed By: #### 1 9123-9, 83557-4, 2777-1 ####[facility] LABORATORYCLIA [id number] [address] [place] CASE MANAGEMon 09-28-2024 CASE MANAGEM Normal [facility] CBC W Auto Differential pane l (Bld)on 09-28-2024 Basophils (Bld) [#/Vol] 0.05 10*3/uL Normal <0.11 [facility] Comment on above: Order Comment: Speci men Type: BLOOD SPECIMENOrdering Facility: [facility] Address: [address] [place] [address] Performed By: #### 5 7021-8 ####[facility] LABORATORYCLIA [id number] [address] [place] Basophils/100 WBC (Bld) 0.8 % Normal [facility] Comment on above: Order Comment: Speci men Type: BLOOD SPECIMENOrdering Facility: [facility] Address: [address] [place] [address] Performed By: #### 5 7021-8 ####[facility] LABORATORYCLIA [id number] [address] [place] Differential cell count method Nom (Bld) Auto Normal [facility] Comment on above: Order Comment: Speci men Type: BLOOD SPECIMENOrdering Facility: [facility] Address: [address] [place] [address] Performed By: #### 5 7021-8 ####[facility] LABORATORYCLIA [id number] [place] [address] [place] Eosinophils (Bld) [#/Vol] 0.22 10*3/uL Normal <0.46 [facility] Comment on above: Order Comment: Speci men Type: BLOOD SPECIMENOrdering Facility: [facility] Address: [address] [place] [address] Performed By: #### 5 7021-8 ####[facility] LABORATORYCLIA [id number] [address] [place] Eosinophils/100 WBC (Bld) 3.4 % Normal [facility] Comment on above: Order Comment: Speci men Type: BLOOD SPECIMENOrdering Facility: [facility] Address: [address] [place] [address] Performed By: #### 5 7021-8 ####[facility] LABORATORYCLIA [id number] [address] [place] Erythrocyte distribution width (RBC) [Ratio] 12.1 % Normal 11.5-15.0 [facility] Comment on above: Order Comment: Speci men Type: BLOOD SPECIMENOrdering Facility: [facility] Address: [address] [place] [address] Performed By: #### 5 7021-8 ####[facility] LABORATORYCLIA [id number] [address] [place] Hematocrit (Bld) [Volume fraction] 46.4 % High 36.0-46.0 [facility] Comment on above: Order Comment: Speci men Type: BLOOD SPECIMENOrdering Facility: [facility] Address: [address] [place] [address] Performed By: #### 5 7021-8 ####[facility] LABORATORYCLIA [id number] [address] [place] Hemoglobin (Bld) [Mass/Vol] 16.1 g/dL High 11.5-15.5 [facility] Comment on above: Order Comment: Speci men Type: BLOOD SPECIMENOrdering Facility: [facility] Address: [address] [place] [address] Performed By: #### 5 7021-8 ####[facility] LABORATORYCLIA [id number] [address] [place] Immature granulocytes (Bld) [#/Vol] 0.04 10*3/uL Normal <0.10 [facility] Comment on above: Order Comment: Speci men Type: BLOOD SPECIMENOrdering Facility: [facility] Address: [address] [place] [address] Performed By: #### 5 7021-8 ####[facility] LABORATORYCLIA [id number] [address] [place] Immature granulocytes/100 WBC (Bld) 0.6 % Normal [facility] Comment on above: Order Comment: Speci men Type: BLOOD SPECIMENOrdering Facility: [facility] Address: [address] [place] [address] Performed By: #### 5 7021-8 ####[facility] LABORATORYCLIA [id number] [place] [address] [place] Lymphocytes (Bld) [#/Vol] 1.77 10*3/uL Normal 1.00-4.00 [facility] Comment on above: Order Comment: Speci men Type: BLOOD SPECIMENOrdering Facility: [facility] Address: [address] [place] [address] Performed By: #### 5 7021-8 ####[facility] LABORATORYCLIA [id number] [address] STATES [facility] Lymphocytes/100 WBC (Bld) 27.1 % Normal [facility] Comment on above: Order Comment: Speci men Type: BLOOD SPECIMENOrdering Facility: [facility] Address: [address] [place] [address] Performed By: #### 5 7021-8 ####[facility] LABORATORYCLIA [id number] [place] [address] [place] MCH (RBC) [Entitic mass] 31.6 pg Normal 26.0-34.0 [facility] Comment on above: Order Comment: Speci men Type: BLOOD SPECIMENOrdering Facility: [facility] Address: [address] [place] [address] Performed By: #### 5 7021-8 ####[facility] LABORATORYCLIA [id number] [address] [place] MCHC (RBC) [Mass/Vol] 34.7 g/dL Normal 30.5-36.0 [facility] Comment on above: Order Comment: Speci men Type: BLOOD SPECIMENOrdering Facility: [facility] Address: [address] [place] [address] Performed By: #### 5 7021-8 ####[facility] LABORATORYCLIA [id number] [address] [place] MCV (RBC) [Entitic vol] 91.0 fL Normal 80.0-100.0 [facility] Comment on above: Order Comment: Speci men Type: BLOOD SPECIMENOrdering Facility: [facility] Address: [address] [place] [address] Performed By: #### 5 7021-8 ####[facility] LABORATORYCLIA [id number] [address] [place] Monocytes (Bld) [#/Vol] 0.51 10*3/uL Normal <0.87 [facility] Comment on above: Order Comment: Speci men Type: BLOOD SPECIMENOrdering Facility: [facility] Address: [address] [place] [address] Performed By: #### 5 7021-8 ####[facility] LABORATORYCLIA [id number] [address] Monocytes/100 WBC (Bld) 7.8 % Normal [facility] Comment on above: Order Comment: Speci men Type: BLOOD SPECIMENOrdering Facility: [facility] Address: [address] [place] [address] Performed By: #### 5 7021-8 ####[facility] LABORATORYCLIA [id number] [place] [address] [place] [place] Neutrophils (Bld) [#/Vol] 3.94 10*3/uL Normal 1.45-7.50 [facility] Comment on above: Order Comment: Speci men Type: BLOOD SPECIMENOrdering Facility: [facility] Address: [address] [place] [address] Performed By: #### 5 7021-8 ####[facility]ORATORYCLIA [id number] [address] Neutrophils/100 WBC (Bld) 60.3 % Normal [facility] Comment on above: Order Comment: Speci men Type: BLOOD SPECIMENOrdering Facility: [facility] Address: [address] [place] [address] Performed By: #### 5 7021-8 ####[facility]ORATORYCLIA [id number] [address] [place] Nucleated RBC (Bld) [#/Vol] 10*3/uL Normal <0.01 [facility] Comment on above: Order Comment: Speci men Type: BLOOD SPECIMENOrdering Facility: [facility] Address: [address] [place] [address] Performed By: #### 5 7021-8 ####[facility]ORATORYCLIA [id number] [address] Nucleated RBC/100 WBC (Bld) [Ratio] 0.0 /100 WBC Normal [facility] Comment on above: Order Comment: Speci men Type: BLOOD SPECIMENOrdering Facility: [facility] Address: [address] [place] [address] Performed By: #### 5 7021-8 ####[facility] LABORATORYCLIA [id number] [address] OF [place] Platelet mean volume (Bld) [Entitic vol] 9.5 fL Normal 9.0-12.7 [facility] Comment on above: Order Comment: Speci men Type: BLOOD SPECIMENOrdering Facility: [facility] Address: [address] [place] [address] Performed By: #### 5 7021-8 ####[facility] LABORATORYCLIA [id number] [address] [place] Platelets (Bld) [#/Vol] 298 10*3/uL Normal 150-400 [facility] Comment on above: Order Comment: Speci men Type: BLOOD SPECIMENOrdering Facility: [facility] Address: [address] [place], [place] [address] Performed By: #### 5 7021-8 ####[facility] LABORATORYCLIA [id number] [address] OF [facility] RBC (Bld) [#/Vol] 5.10 10*6/uL Normal 3.90-5.20 [facility] Comment on above: Order Comment: Speci men Type: BLOOD SPECIMENOrdering Facility: [facility] Address: [address] [place] [address] Performed By: #### 5 7021-8 ####[facility] LABORATORYCLIA [id number] [address] OF [facility] WBC (Bld) [#/Vol] 6.53 10*3/uL Normal 3.70-11.00 [facility] Comment on above: Order Comment: Speci men Type: BLOOD SPECIMENOrdering Facility: [facility] Address: [address] [place] [address] Performed By: #### 5 7021-8 ####[facility] LABORATORYCLIA [id number] [address] Comprehensive metabolic 2000 panelon 09-28-2024 Albumin [Mass/Vol] 4.3 g/dL Normal 3.9-4.9 [facility] Comment on above: Order Comment: Speci men Type: BLOOD SPECIMENOrdering Facility: [facility] Address: [address] [place] [address] Performed By: #### 2 4323-8, 50767-7 ####[facility]ORATORYCLIA [id number] [address] ALP [Catalytic activity/Vol] 138 U/L High 34-123 [facility] Comment on above: Order Comment: Speci men Type: BLOOD SPECIMENOrdering Facility: [facility] Address: [address] [place] [address] Performed By: #### 2 4323-8, 82182-4 ####[facility] LABORATORYCLIA [id number] [place] [id number] [place] ALT With P-5'-P [Catalytic activity/Vol] 36 U/L Normal 7-38 [facility] Comment on above: Order Comment: Speci men Type: BLOOD SPECIMENOrdering Facility: [facility] Address: [address] [place] [address] Performed By: #### 2 432-8, ####[facility] LABORATORYCLIA [id number] [place] [id number] [place] Anion gap [Moles/Vol] 11 mmol/L Normal 8-15 [facility] Comment on above: Order Comment: Speci men Type: BLOOD SPECIMENOrdering Facility: [facility] Address: [address] [place] [address] Performed By: #### 2 4323-03, ####[facility] LABORATORYCLIA [id number] [place] [address] [place] AST With P-5'-P [Catalytic activity/Vol] 35 U/L Normal 13-35 [facility] Comment on above: Order Comment: Speci men Type: BLOOD SPECIMENOrdering Facility: [facility] Address: [address] [place] [address] Performed By: #### 2 4323-03, ####[facility] LABORATORYCLIA [id number] [place] [address] [place] Bilirubin [Mass/Vol] 0.7 mg/dL Normal 0.2-1.3 [facility] Comment on above: Order Comment: Speci men Type: BLOOD SPECIMENOrdering Facility: [facility] Address: [address] [place] [address] Performed By: #### 2 4323-8, ####[facility] LABORATORYCLIA [id number] [place] [address] [place] Calcium [Mass/Vol] 9.3 mg/dL Normal 8.5-10.2 [facility] Comment on above: Order Comment: Speci men Type: BLOOD SPECIMENOrdering Facility: [facility] Address: [address] [place] [address] Performed By: #### 2 4323-8, ####[facility] LABORATORYCLIA [id number] [place] [address] [place] Chloride [Moles/Vol] 97 mmol/L Low 98-107 [facility] Comment on above: Order Comment: Speci men Type: BLOOD SPECIMENOrdering Facility: [facility] Address: [address] [place] [address] Performed By: #### 2 4323-8, ####[facility] LABORATORYCLIA [id number] [place] [id number] [place] CO2 [Moles/Vol] 23 mmol/L Normal 22-30 [facility] Comment on above: Order Comment: Speci men Type: BLOOD SPECIMENOrdering Facility: [facility] Address: [address] [place] [address] Performed By: #### 2 4323-8, ####[facility]ORATORYCLIA [id number] [address] OF [facility] Creatinine [Mass/Vol] 0.84 mg/dL Normal 0.58-0.96 [facility] Comment on above: Order Comment: Speci men Type: BLOOD SPECIMENOrdering Facility: [facility] Address: [address] [place] [address] Performed By: #### 2 4323-8, 56700-6 ####[facility] LABORATORYCLIA [id number] [address] Creatinine and Glomerular filtration rate.predicted panel (S/P/Bld) 75 mL/min/1.73m??? Normal >=60 [facility] Comment on above: Order Comment: Speci men Type: BLOOD SPECIMENOrdering Facility: [facility] Address: [address] [place] [address] Result Comment: Conchita mated Glomerular Filtration Rate [...] actual GFR. Performed By: #### 2 4323-8, ####[facility] LABORATORYCLIA [id number] [place] [address] [place] Glucose [Mass/Vol] 101 mg/dL High 74-99 [facility] Comment on above: Order Comment: [place] o[place] Type: BLOOD SPECIMENOrdering Facility: [facility] Address: [address] [place] [address] Result Comment: The [place] Diabetes Association (ADA) provides guidance for cutoff [...] Standards of Medical Care in Diabetes 2016, [place] [employer]. Diabetes Care. 2016.39(Suppl 1). Performed By: #### 2 4323-8, ####[facility] LABORATORYCLIA [id number] [place] [address] [place] Potassium [Moles/Vol] 4.0 mmol/L Normal 3.7-5.1 [facility] Comment on above: Order Comment: [place] o[place] Type: BLOOD SPECIMENOrdering Facility: [facility] Address: [address] [place] [address] Performed By: #### 2 4323-8, ####[facility] LABORATORYCLIA [id number] [place] [address] [place] Protein [Mass/Vol] 6.7 g/dL Normal 6.3-8.0 [facility] Comment on above: Order Comment: [place] o[place] Type: BLOOD SPECIMENOrdering Facility: [facility] Address: [address] [place] [address] Performed By: #### 2 4323-8, 27819-8 ####[facility] LABORATORYCLIA [id number] [place] [address] [place] Sodium [Moles/Vol] 131 mmol/L Low 136-144 [facility] Comment on above: Order Comment: Speci men Type: BLOOD SPECIMENOrdering Facility: [facility] Address: [address] [place] [address] Performed By: #### 2 4323-8, ####[facility]ORATORYCLIA [id number] [place] [address] [place] Urea nitrogen [Mass/Vol] 18 mg/dL Normal 7-21 [facility] Comment on above: Order Comment: Speci men Type: BLOOD SPECIMENOrdering Facility: [facility] Address: [address] [place] [address] Performed By: #### 2 4328, ####[facility] LABORATORYCLIA [id number] [place] [address] [place] ECG COMPLETEon 09-28-2024 ECG COMPLETE Normal [facility] ECG COMPLETE Normal [facility] ECHO LIMITEDon 09-28-2024 ECHO LIMITED Normal [facility] HIGH SENSITIVITY TROPONIN To n 09-28-2024 Troponin T.cardiac High sensitivity method [Mass/Vol] 7 ng/L Normal <12 [facility] Comment on above: Order Comment: Speci men Type: BLOOD SPECIMENOrdering Facility: [facility] Address: [address] [place] [address] Performed By: #### H STNT ####[facility] LABORATORYCLIA [id number] [place] [address] [place] Magnesium SerPl-mCncon 09-28 Magnesium [Mass/Vol] 2.1 mg/dL Normal 1.7-2.3 [facility] Comment on above: Order Comment: Speci men Type: BLOOD SPECIMENOrdering Facility: [facility] Address: [address] [place] [address] Performed By: #### 1 9123-9, 56738-4, 277-1 ####[facility] LABORATORYCLIA [id number] [place] [address] [place] Magnesium [Mass/Vol] 2.1 mg/dL Normal 1.7-2.3 [facility] Comment on above: Order Comment: Speci men Type: BLOOD SPECIMENOrdering Facility: [facility] Address: [address] [place], [place] [address] Performed By: #### 2 4323-8, ####[facility] LABORATORYCLIA [id number] [place] [address] [place] NURSING PROGon 09-28-2024 NURSING PROG Normal [facility] PT EDon 09-28-2024 PT ED Normal [facility] Phosphate SerPl-mCncon 09-28 Phosphate [Mass/Vol] 3.0 mg/dL Normal 2.7-4.8 [facility] Comment on above: Order Comment: Speci men Type: BLOOD SPECIMENOrdering Facility: [facility] Address: [address] [place], [place] [address] Performed By: #### 1 9123-9, 47000-3, 2776-08 ####[facility] LABORATORYCLIA [id number] [place] [id number] [place] Basic metabolic 2000 panelon 09-27-2024 Anion gap [Moles/Vol] 11 mmol/L Normal 8-15 [facility] Comment on above: Order Comment: Speci men Type: BLOOD SPECIMENOrdering Facility: [facility] Address: [address] [place], [place] [address] Performed By: #### 2 4321-2, 84622-8, 2776-08 ####[facility] LABORATORYCLIA [id number] [address] [place] Calcium [Mass/Vol] 10.0 mg/dL Normal 8.5-10.2 [facility] Comment on above: Order Comment: Speci men Type: BLOOD SPECIMENOrdering Facility: [facility] Address: [address] [place] [id number] Performed By: #### 2 4321-2, , 2776-08 ####[facility] LABORATORYCLIA [id number] [place] [address] [place] Chloride [Moles/Vol] 100 mmol/L Normal 98-107 [facility] Comment on above: Order Comment: Speci men Type: BLOOD SPECIMENOrdering Facility: [facility] Address: [address] [place] [address] Performed By: #### 2 4321-2, , 2776-08 ####[facility] LABORATORYCLIA [id number] [place] [id number] [place] CO2 [Moles/Vol] 23 mmol/L Normal 22-30 [facility] Comment on above: Order Comment: Speci men Type: BLOOD SPECIMENOrdering Facility: [facility] Address: [address] [place] [address] Performed By: #### 2 4321-2, , 2776-08 ####[facility] LABORATORYCLIA [id number] [place] [id number] [place] Creatinine [Mass/Vol] 0.95 mg/dL Normal 0.58-0.96 [facility] Comment on above: Order Comment: Speci men Type: BLOOD SPECIMENOrdering Facility: [facility] Address: [address] [place] [address] Performed By: #### 2 4321-2, , 2776-08 ####[facility] LABORATORYCLIA [id number] [place] [id number] [facility] Creatinine and Glomerular filtration rate.predicted panel (S/P/Bld) 65 mL/min/1.73m??? Normal >=60 [facility] Comment on above: Order Comment: Speci men Type: BLOOD SPECIMENOrdering Facility: [facility] Address: [address] [place] [address] Result Comment: Conchita mated Glomerular Filtration Rate [...] Performed By: #### 2 4321-2, , 2776-08 ####[facility] LABORATORYCLIA [id number] [place] [address] [place] Glucose [Mass/Vol] 146 mg/dL High 74-99 [facility] Comment on above: Order Comment: [place] o[place] Type: BLOOD SPECIMENOrdering Facility: [facility] Address: [address] [place] [address] Result Comment: The [place] Diabetes Association (ADA) provides guidance for cutoff [...] Standards of Medical Care in Diabetes 2016, [place] [employer]. Diabetes Care. 2016.39(Suppl 1). Performed By: #### 2 4321-2, , 2776-08 ####[facility] LABORATORYCLIA [id number] [place] [id number] [place] Potassium [Moles/Vol] 3.8 mmol/L Normal 3.7-5.1 [facility] Comment on above: Order Comment: Prince omer Type: BLOOD SPECIMENOrdering Facility: [facility] Address: [address] [place] [id number] Performed By: #### 2 4321-2, , 2776-08 ####[facility] LABORATORYCLIA [id number] [place] [address] [place] Sodium [Moles/Vol] 134 mmol/L Low 136-144 [facility] Comment on above: Order Comment: Speci men Type: BLOOD SPECIMENOrdering Facility: [facility] Address: [address] [place] [address] Performed By: #### 2 4321-2, , 2776-08 ####[facility] LABORATORYCLIA [id number] [address] STATES OF [facility] Urea nitrogen [Mass/Vol] 18 mg/dL Normal 7-21 [facility] Comment on above: Order Comment: Speci men Type: BLOOD SPECIMENOrdering Facility: [facility] Address: [address] [place] [address] Performed By: #### 2 4321-2, , 2776-08 ####[facility] LABORATORYCLIA [id number] [address] [place] CBC panel Auto (Bld)on 09-27 Erythrocyte distribution width (RBC) [Ratio] 12.5 % Normal 11.5-15.0 [facility] Comment on above: Order Comment: Speci men Type: BLOOD SPECIMENOrdering Facility: [facility] Address: [address] [place] [address] Performed By: #### 5 8410-2 ####[facility] LABORATORYCLIA [id number] [address] [place] Hematocrit (Bld) [Volume fraction] 48.6 % High 36.0-46.0 [facility] Comment on above: Order Comment: Speci men Type: BLOOD SPECIMENOrdering Facility: [facility] Address: [address] [place] [address] Performed By: #### 5 8410-2 ####[facility] LABORATORYCLIA [id number] [address] [place] Hemoglobin (Bld) [Mass/Vol] 16.5 g/dL High 11.5-15.5 [facility] Comment on above: Order Comment: Speci men Type: BLOOD SPECIMENOrdering Facility: [facility] Address: [address] [place] [address] Performed By: #### 5 8410-2 ####[facility] LABORATORYCLIA [id number] [address] MCH (RBC) [Entitic mass] 30.8 pg Normal 26.0-34.0 [facility] Comment on above: Order Comment: Speci men Type: BLOOD SPECIMENOrdering Facility: [facility] Address: [address] [place] [address] Performed By: #### 5 8410-2 ####[facility] LABORATORYCLIA [id number] [address] OF [place] MCHC (RBC) [Mass/Vol] 34.0 g/dL Normal 30.5-36.0 [facility] Comment on above: Order Comment: Speci men Type: BLOOD SPECIMENOrdering Facility: [facility] Address: [address] [place] [address] Performed By: #### 5 8410-2 ####[facility] LABORATORYCLIA [id number] [address] MCV (RBC) [Entitic vol] 90.7 fL Normal 80.0-100.0 [facility] Comment on above: Order Comment: Speci men Type: BLOOD SPECIMENOrdering Facility: [facility] Address: [address] [place] [address] Performed By: #### 5 8410-2 ####[facility] LABORATORYCLIA [id number] [address] Nucleated RBC (Bld) [#/Vol] 10*3/uL Normal <0.01 [facility] Comment on above: Order Comment: Speci men Type: BLOOD SPECIMENOrdering Facility: [facility] Address: [address] [place] [address] Performed By: #### 5 8410-2 ####[facility] LABORATORYCLIA [id number] [address] OF [place] Platelet mean volume (Bld) [Entitic vol] 9.7 fL Normal 9.0-12.7 [facility] Comment on above: Order Comment: Speci men Type: BLOOD SPECIMENOrdering Facility: [facility] Address: [address] [place] [address] Performed By: #### 5 8410-2 ####[facility] LABORATORYCLIA [id number] [address] OF [facility] Platelets (Bld) [#/Vol] 305 10*3/uL Normal 150-400 [facility] Comment on above: Order Comment: Speci men Type: BLOOD SPECIMENOrdering Facility: [facility] Address: [address] [place] [address] Performed By: #### 5 8410-2 ####[facility] LABORATORYCLIA [id number] [place] [address] [place] RBC (Bld) [#/Vol] 5.36 10*6/uL High 3.90-5.20 [facility] Comment on above: Order Comment: Speci men Type: BLOOD SPECIMENOrdering Facility: [facility] Address: [address] [place] [address] Performed By: #### 5 8410-2 ####[facility] LABORATORYCLIA [id number] [address] OF [facility] WBC (Bld) [#/Vol] 6.03 10*3/uL Normal 3.70-11.00 [facility] Comment on above: Order Comment: Speci men Type: BLOOD SPECIMENOrdering Facility: [facility] Address: [address] [place] [address] Performed By: #### 5 8410-2 ####[facility] LABORATORYCLIA [id number] [address] [place] CONSULTon 09-27-2024 CONSULT Normal [facility] ECG COMPLETEon 09-27-2024 ECG COMPLETE Normal [facility] ECG COMPLETE Normal [facility] HIGH SENSITIVITY TROPONIN To n 09-27-2024 Troponin T.cardiac High sensitivity method [Mass/Vol] 8 ng/L Normal <12 [facility] Comment on above: Order Comment: Speci men Type: BLOOD SPECIMENOrdering Facility: [facility] Address: [address] [place] [address] Performed By: #### H STNT ####[facility] LABORATORYCLIA [id number] [place] [address] [place] [facility] Magnesium SerPl-mCncon 09-27 Magnesium [Mass/Vol] 2.0 mg/dL Normal 1.7-2.3 [facility] Comment on above: Order Comment: Speci men Type: BLOOD SPECIMENOrdering Facility: [facility] Address: [address] [place] [address] Performed By: #### 2 4321-2, , 27702-16 ####[facility] LABORATORYCLIA [id number] [address] STATES OF [facility] Phosphate SerPl-mCncon 09-27 Phosphate [Mass/Vol] 3.3 mg/dL Normal 2.7-4.8 [facility] Comment on above: Order Comment: Speci men Type: BLOOD SPECIMENOrdering Facility: [facility] Address: [address] [place] [address] Performed By: #### 2 4321-2, , 27702-16 ####[facility] LABORATORYCLIA [id number] [place] [address] [place] XR CHEST 1V FRONTALon 2024 XR CHEST 1V FRONTAL Normal [facility] ECG COMPLETEon 09-26-2024 ECG COMPLETE Normal [facility] HIGH SENSITIVITY TROPONIN To n 09-26-2024 Troponin T.cardiac High sensitivity method [Mass/Vol] 7 ng/L Normal <12 [facility] Comment on above: Order Comment: Speci men Type: BLOOD SPECIMENOrdering Facility: [facility] Address: [address] [place] [address] Performed By: #### H STNT ####[facility] LABORATORYCLIA [id number] [place] [address] [place] Magnesium SerPl-mCncon 09-26 Magnesium [Mass/Vol] 2.1 mg/dL Normal 1.7-2.3 [facility] Comment on above: Order Comment: Speci men Type: BLOOD SPECIMENOrdering Facility: [facility] Address: [address] [place] [address] Performed By: #### 2 4362-6, ####[facility] LABORATORYCLIA [id number] [place] [address] [place] Renal function 2000 panelon 09-26-2024 Albumin [Mass/Vol] 4.0 g/dL Normal 3.9-4.9 [facility] Comment on above: Order Comment: Speci men Type: BLOOD SPECIMENOrdering Facility: [facility] Address: [address] [place] [address] Performed By: #### 2 4362-6, ####[facility] LABORATORYCLIA [id number] [place] [address] [place] Anion gap [Moles/Vol] 11 mmol/L Normal 8-15 [facility] Comment on above: Order Comment: Speci men Type: BLOOD SPECIMENOrdering Facility: [facility] Address: [address] [place] [address] Performed By: #### 2 4362-6, ####[facility] LABORATORYCLIA [id number] [place] [address] [place] Calcium [Mass/Vol] 9.3 mg/dL Normal 8.5-10.2 [facility] Comment on above: Order Comment: Speci men Type: BLOOD SPECIMENOrdering Facility: [facility] Address: [address] [place] [address] Performed By: #### 2 4362-6, ####[facility] LABORATORYCLIA [id number] [place] [address] [place] Chloride [Moles/Vol] 104 mmol/L Normal 98-107 [facility] Comment on above: Order Comment: Speci men Type: BLOOD SPECIMENOrdering Facility: [facility] Address: [address] [place] [address] Performed By: #### 2 4362-6, ####[facility] LABORATORYCLIA [id number] [place] [id number] [place] CO2 [Moles/Vol] 22 mmol/L Normal 22-30 [facility] Comment on above: Order Comment: Speci men Type: BLOOD SPECIMENOrdering Facility: [facility] Address: [address] [place] [address] Performed By: #### 2 4362-6, ####[facility] LABORATORYCLIA [id number] [address] [place] Creatinine [Mass/Vol] 0.85 mg/dL Normal 0.58-0.96 [facility] Comment on above: Order Comment: Speci men Type: BLOOD SPECIMENOrdering Facility: [facility] Address: [address] [place] [address] Performed By: #### 2 436-6, ####[facility]ITALCLIA [id number] [address] Creatinine and Glomerular filtration rate.predicted panel (S/P/Bld) 74 mL/min/1.73m??? Normal >=60 [facility] Comment on above: Order Comment: Speci men Type: BLOOD SPECIMENOrdering Facility: [facility] Address: [address] [place] [address] Result Comment: Conchita mated Glomerular Filtration Rate [...] actual GFR. Performed By: #### 2 4362-6, ####[facility] LABORATORYCLIA [id number] [place] [id number] [place] Glucose [Mass/Vol] 92 mg/dL Normal 74-99 [facility] Comment on above: Order Comment: Speci men Type: BLOOD SPECIMENOrdering Facility: [facility] Address: [address] [place] [address] Result Comment: The [place] [employer] (ADA) provides guidance for cutoff [...] Standards of Medical Care in Diabetes 2016, [place] [employer]. Diabetes Care. 2016.39(Suppl 1). Performed By: #### 2 4362-6, ####[facility] LABORATORYCLIA [id number] [place] [address] [place] Phosphate [Mass/Vol] 3.7 mg/dL Normal 2.7-4.8 [facility] Comment on above: Order Comment: [place] Type: BLOOD SPECIMENOrdering Facility: [facility] Address: [address] [place] [address] Performed By: #### 2 436-, ####[facility] LABORATORYCLIA [id number] [place] [address] [place] Potassium [Moles/Vol] 4.1 mmol/L Normal 3.7-5.1 [facility] Comment on above: Order Comment: Speci men Type: BLOOD SPECIMENOrdering Facility: [facility] Address: [address] [place] [address] Performed By: #### 2 436-, ####[facility] LABORATORYCLIA [id number] [place] [address] [place] Sodium [Moles/Vol] 137 mmol/L Normal 136-144 [facility] Comment on above: Order Comment: Speci men Type: BLOOD SPECIMENOrdering Facility: [facility] Address: [address] [place] [address] Performed By: #### 2 4362-6, 15608-5 ####[facility] LABORATORYCLIA [id number] [place] [address] [place] Urea nitrogen [Mass/Vol] 12 mg/dL Normal 7-21 [facility] Comment on above: Order Comment: Speci men Type: BLOOD SPECIMENOrdering Facility: [facility] Address: [address] [place] [address] Performed By: #### 2 4362-6, ####[facility] LABORATORYCLIA [id number] [place] [address] [place] XR CHEST 2V FRONTAL/LATon XR CHEST 2V FRONTAL/LAT Normal [facility] CASE MGT INIT ASSESon 2024 CASE MGT INIT ASSES Normal [facility] CBC panel Auto (Bld)on 09-25 Erythrocyte distribution width (RBC) [Ratio] 12.8 % Normal 11.5-15.0 [facility] Comment on above: Order Comment: Speci men Type: BLOOD SPECIMENOrdering Facility: [facility] Address: [address] [place] [address] Performed By: #### 5 8410-2 ####[facility] LABORATORYCLIA [id number] [address] [place] Hematocrit (Bld) [Volume fraction] 41.9 % Normal 36.0-46.0 [facility] Comment on above: Order Comment: Speci men Type: BLOOD SPECIMENOrdering Facility: [facility] Address: [address] [place] [address] Performed By: #### 5 8410-2 ####[facility] LABORATORYCLIA [id number] [place] [id number] [place] Hemoglobin (Bld) [Mass/Vol] 14.4 g/dL Normal 11.5-15.5 [facility] Comment on above: Order Comment: Speci men Type: BLOOD SPECIMENOrdering Facility: [facility] Address: [address] [place], [place] [address] Performed By: #### 5 8410-2 ####[facility] LABORATORYCLIA [id number] [address] MCH (RBC) [Entitic mass] 31.9 pg Normal 26.0-34.0 [facility] Comment on above: Order Comment: Speci men Type: BLOOD SPECIMENOrdering Facility: [facility] Address: [address] [place] [address] Performed By: #### 5 8410-2 ####[facility] LABORATORYCLIA [id number] [address] [place] MCHC (RBC) [Mass/Vol] 34.4 g/dL Normal 30.5-36.0 [facility] Comment on above: Order Comment: Speci men Type: BLOOD SPECIMENOrdering Facility: [facility] Address: [address] [place] [address] Performed By: #### 5 8410-2 ####[facility] LABORATORYCLIA [id number] [address] STATES [facility] MCV (RBC) [Entitic vol] 92.9 fL Normal 80.0-100.0 [facility] Comment on above: Order Comment: Speci men Type: BLOOD SPECIMENOrdering Facility: [facility] Address: [address] [place] [address] Performed By: #### 5 8410-2 ####[facility] LABORATORYCLIA [id number] [address] Nucleated RBC (Bld) [#/Vol] 10*3/uL Normal <0.01 [facility] Comment on above: Order Comment: Speci men Type: BLOOD SPECIMENOrdering Facility: [facility] Address: [address] [place] [address] Performed By: #### 5 8410-2 ####[facility] LABORATORYCLIA [id number] [address] [place] Platelet mean volume (Bld) [Entitic vol] 9.8 fL Normal 9.0-12.7 [facility] Comment on above: Order Comment: Speci men Type: BLOOD SPECIMENOrdering Facility: [facility] Address: [address] [place] [address] Performed By: #### 5 8410-2 ####[facility] LABORATORYCLIA [id number] [address] STATES OF [facility] Platelets (Bld) [#/Vol] 257 10*3/uL Normal 150-400 [facility] Comment on above: Order Comment: Speci men Type: BLOOD SPECIMENOrdering Facility: [facility] Address: [address] [place] [address] Performed By: #### 5 8410-2 ####[facility] LABORATORYCLIA [id number] [place] [address] [place] RBC (Bld) [#/Vol] 4.51 10*6/uL Normal 3.90-5.20 [facility] Comment on above: Order Comment: Speci men Type: BLOOD SPECIMENOrdering Facility: [facility] Address: [address] [place] [address] Performed By: #### 5 8410-2 ####[facility] LABORATORYCLIA [id number] [address] WBC (Bld) [#/Vol] 5.53 10*3/uL Normal 3.70-11.00 [facility] Comment on above: Order Comment: Speci men Type: BLOOD SPECIMENOrdering Facility: [facility] Address: [address] [place] [address] Performed By: #### 5 8410-2 ####[facility] LABORATORYCLIA [id number] [address] [place] CONSULT PROGon 09-25-2024 CONSULT PROG Normal [facility] CRP SerPl-mCncon 09-25-2024 CRP [Mass/Vol] 0.5 mg/dL Normal <0.9 [facility] Comment on above: Order Comment: Speci men Type: BLOOD SPECIMENOrdering Facility: [facility] Address: [address] [place] [address] Performed By: #### 1 988-5, 15492-9, 6-3, 77109-7 ####[facility] LABORATORYCLIA [id number] [place] [id number] [place] ECG COMPLETEon 09-25-2024 ECG COMPLETE Normal [facility] ECHO WITH AGITATED SALINE CO NTRASTon 09-25-2024 ECHO WITH AGITATED SALINE CONTRAST Normal [facility] ESR Westergren method (Bld) [Velocity]on 09-25-2024 ESR (Bld) [Velocity] 8 mm/h Normal 0-20 [facility] Comment on above: Order Comment: Speci men Type: BLOOD SPECIMENOrdering Facility: [facility] Address: [address] [place] [address] Performed By: #### 4 537-7 ####[facility] LABCLIA [id number] [address] [place] HIGH SENSITIVITY TROPONIN To n 09-25-2024 Troponin T.cardiac High sensitivity method [Mass/Vol] 9 ng/L Normal <12 [facility] Comment on above: Order Comment: Speci men Type: BLOOD SPECIMENOrdering Facility: [facility] Address: [address] [place] [address] Performed By: #### H STNT ####[facility] LABORATORYCLIA [id number] [place] [address] [place] Magnesium SerPl-mCncon 09-25 Magnesium [Mass/Vol] 2.2 mg/dL Normal 1.7-2.3 [facility] Comment on above: Order Comment: Speci men Type: BLOOD SPECIMENOrdering Facility: [facility] Address: [address] [place] [address] Performed By: #### 1 988-5, 41152-7, 3015-3, 59692-5 ####[facility] LABORATORYCLIA [id number] [place] [address] [place] NURSING PROGon 09-25-2024 NURSING PROG Normal [facility] Renal function 2000 panelon 09-25-2024 Albumin [Mass/Vol] 4.1 g/dL Normal 3.9-4.9 [facility] Comment on above: Order Comment: Speci men Type: BLOOD SPECIMENOrdering Facility: [facility] Address: [address] [place] [address] Performed By: #### 1 988-5, 05700-2, 3016-3, 20753-7 ####[facility] LABORATORYCLIA [id number] [place] [address] [place] Anion gap [Moles/Vol] 11 mmol/L Normal 8-15 [facility] Comment on above: Order Comment: Speci men Type: BLOOD SPECIMENOrdering Facility: [facility] Address: [address] [place] [address] Performed By: #### 1 988-5, 64213-8, 3016-3, 37360-5 ####[facility] LABORATORYCLIA [id number] [place] [address] [place] Calcium [Mass/Vol] 9.4 mg/dL Normal 8.5-10.2 [facility] Comment on above: Order Comment: Speci men Type: BLOOD SPECIMENOrdering Facility: [facility] Address: [address] [place] [address] Performed By: #### 1 988-5, 38055-3, 3016-3, 29627-6 ####[facility] LABORATORYCLIA [id number] [place] [address] [place] Chloride [Moles/Vol] 107 mmol/L Normal 98-107 [facility] Comment on above: Order Comment: Speci men Type: BLOOD SPECIMENOrdering Facility: [facility] Address: [address] [place] [address] Performed By: #### 1 988-5, 87478-4, 3016-3, 83731-3 ####[facility] LABORATORYCLIA [id number] [place] [address] [place] CO2 [Moles/Vol] 23 mmol/L Normal 22-30 [facility] Comment on above: Order Comment: Speci men Type: BLOOD SPECIMENOrdering Facility: [facility] Address: [address] [place] [address] Performed By: #### 1 988-5, 46123-3, 3016-3, 47134-4 ####[facility] LABORATORYCLIA [id number] [place] [address] [place] Creatinine [Mass/Vol] 0.79 mg/dL Normal 0.58-0.96 [facility] Comment on above: Order Comment: Speci men Type: BLOOD SPECIMENOrdering Facility: [facility] Address: [address] [place] [address] Performed By: #### 1 988-5, 42991-3, 6-3, 96414-4 ####[facility]PITALCLIA [id number] [address] STATES OF [facility] Creatinine and Glomerular filtration rate.predicted panel (S/P/Bld) 81 mL/min/1.73m??? Normal >=60 [facility] Comment on above: Order Comment: Speci men Type: BLOOD SPECIMENOrdering Facility: [facility] Address: [address] [place] [address] Result Comment: Conchita mated Glomerular Filtration Rate [...] actual GFR. Performed By: #### 1 988-5, 25780-8, 6-3, 38272-9 ####[facility] LABORATORYCLIA [id number] [place] [id number] [place] Glucose [Mass/Vol] 94 mg/dL Normal 74-99 [facility] Comment on above: Order Comment: Speci men Type: BLOOD SPECIMENOrdering Facility: [facility] Address: [address] [place] [address] Result Comment: The [place] [employer] (ADA) provides guidance for cutoff [...] Standards of Medical Care in Diabetes 2016, [place] [employer]. Diabetes Care. 2016.39(Suppl 1). Performed By: #### 1 988-5, 06001-1, 6-3, 12105-5 ####[facility] LABORATORYCLIA [id number] [place] [address] [place] Phosphate [Mass/Vol] 3.3 mg/dL Normal 2.7-4.8 [facility] Comment on above: Order Comment: Speci men Type: BLOOD SPECIMENOrdering Facility: [facility] Address: [address] [place] [address] Performed By: #### 1 988-5, 43869-8, 6-3, 88463-6 ####[facility] LABORATORYCLIA [id number] [place] [address] [place] Potassium [Moles/Vol] 3.8 mmol/L Normal 3.7-5.1 [facility] Comment on above: Order Comment: Speci men Type: BLOOD SPECIMENOrdering Facility: [facility] Address: [address] [place] [address] Performed By: #### 1 988-5, 48927-7, 6-3, 57104-5 ####[facility] LABORATORYCLIA [id number] [place] [address] [place] Sodium [Moles/Vol] 141 mmol/L Normal 136-144 [facility] Comment on above: Order Comment: Speci men Type: BLOOD SPECIMENOrdering Facility: [facility] Address: [address] [place] [address] Performed By: #### 1 988-5, 39045-4, 3016-3, 85486-7 ####[facility] LABORATORYCLIA [id number] [address] Urea nitrogen [Mass/Vol] 13 mg/dL Normal 7-21 [facility] Comment on above: Order Comment: Speci men Type: BLOOD SPECIMENOrdering Facility: [facility] Address: [address] [place] [address] Performed By: #### 1 988-5, 17946-2, 3016-3, 24503-5 ####[facility] LABORATORYCLIA [id number] [address] OF [facility] TSH SerPl-aCncon 09-25-2024 TSH Qn 2.230 m[IU]/L Normal 0.270-4.200 [facility] Comment on above: Order Comment: Speci men Type: BLOOD SPECIMENOrdering Facility: [facility] Address: [address] [place] [address] Performed By: #### 1 988-5, 46200-0, 3016-3, 73510-6 ####[facility] LABORATORYCLIA [id number] [address] [place] aPTT PPPon 09-25-2024 aPTT Coag (PPP) [Time] 58.2 s High 23.0-32.4 [facility] Comment on above: Order Comment: Speci men Type: BLOOD SPECIMENOrdering Facility: [facility] Address: [facility] [place] [address] Performed By: #### 1 4979-9 ####[facility] LABORATORYCLIA [id number] [address] aPTT Coag (PPP) [Time] 63.4 s High 23.0-32.4 [facility] Comment on above: Order Comment: Speci men Type: BLOOD SPECIMENOrdering Facility: [facility] Address: [address] [place] [address] Performed By: #### 1 4979-9 ####[facility] LABORATORYCLIA [id number] [address] STATES OF [facility] CBC panel Auto (Bld)on 09-24 Erythrocyte distribution width (RBC) [Ratio] 12.5 % Normal 11.5-15.0 [facility] Comment on above: Order Comment: Speci men Type: BLOOD SPECIMENOrdering Facility: [facility] Address: [address] [place] [address] Performed By: #### 5 8410-2 ####[facility] LABORATORYCLIA [id number] [address] Hematocrit (Bld) [Volume fraction] 40.1 % Normal 36.0-46.0 [facility] Comment on above: Order Comment: Speci men Type: BLOOD SPECIMENOrdering Facility: [facility] Address: [address] [place] [address] Performed By: #### 5 8410-2 ####[facility] LABORATORYCLIA [id number] [address] Hemoglobin (Bld) [Mass/Vol] 13.6 g/dL Normal 11.5-15.5 [facility] Comment on above: Order Comment: Speci men Type: BLOOD SPECIMENOrdering Facility: [facility] Address: [address] [place] [address] Performed By: #### 5 8410-2 ####[facility] LABORATORYCLIA [id number] [address] STATES [facility] MCH (RBC) [Entitic mass] 31.6 pg Normal 26.0-34.0 [facility] Comment on above: Order Comment: Speci men Type: BLOOD SPECIMENOrdering Facility: [facility] Address: [address] [place] [address] Performed By: #### 5 8410-2 ####[facility] LABORATORYCLIA [id number] [address] [place] MCHC (RBC) [Mass/Vol] 33.9 g/dL Normal 30.5-36.0 [facility] Comment on above: Order Comment: Speci men Type: BLOOD SPECIMENOrdering Facility: [facility] Address: [address] [place] [address] Performed By: #### 5 8410-2 ####[facility] LABORATORYCLIA [id number] [address] STATES OF [facility] MCV (RBC) [Entitic vol] 93.0 fL Normal 80.0-100.0 [facility] Comment on above: Order Comment: Speci men Type: BLOOD SPECIMENOrdering Facility: [facility] Address: [address] [place] [address] Performed By: #### 5 8410-2 ####[facility] LABORATORYCLIA [id number] [address] [place] Nucleated RBC (Bld) [#/Vol] 10*3/uL Normal <0.01 [facility] Comment on above: Order Comment: Speci men Type: BLOOD SPECIMENOrdering Facility: [facility] Address: [address] [place] [address] Performed By: #### 5 8410-2 ####[facility] LABORATORYCLIA [id number] [address] [place] Platelet mean volume (Bld) [Entitic vol] 9.5 fL Normal 9.0-12.7 [facility] Comment on above: Order Comment: Speci men Type: BLOOD SPECIMENOrdering Facility: [facility] Address: [address] [place] [address] Performed By: #### 5 8410-2 ####[facility] LABORATORYCLIA [id number] [address] [place] Platelets (Bld) [#/Vol] 249 10*3/uL Normal 150-400 [facility] Comment on above: Order Comment: Speci men Type: BLOOD SPECIMENOrdering Facility: [facility] Address: [address] [place] [address] Performed By: #### 5 8410-2 ####[facility] LABORATORYCLIA [id number] [address] [place] RBC (Bld) [#/Vol] 4.31 10*6/uL Normal 3.90-5.20 [facility] Comment on above: Order Comment: Speci men Type: BLOOD SPECIMENOrdering Facility: [facility] Address: [address] [place] [address] Performed By: #### 5 8410-2 ####[facility] LABORATORYCLIA [id number] [place] [address] [place] WBC (Bld) [#/Vol] 6.52 10*3/uL Normal 3.70-11.00 [facility] Comment on above: Order Comment: Speci men Type: BLOOD SPECIMENOrdering Facility: [facility] Address: [address] [place] [address] Performed By: #### 5 8410-2 ####[facility] LABORATORYCLIA [id number] [address] [place] Erythrocyte distribution width (RBC) [Ratio] 12.3 % Normal 11.5-15.0 [facility] Comment on above: Order Comment: Speci men Type: BLOOD SPECIMENOrdering Facility: [facility] Address: [address] [place] [address] Performed By: #### 5 8410-2 ####[facility] LABCLIA [id number] [place], [place] [address] [place] [address] [place] Hematocrit (Bld) [Volume fraction] 45.0 % Normal 36.0-46.0 [facility] Comment on above: Order Comment: Speci men Type: BLOOD SPECIMENOrdering Facility: [facility] Address: [address] [place] [address] Performed By: #### 5 8410-2 ####[facility] LABCLIA [id number] [address] [place] Hemoglobin (Bld) [Mass/Vol] 14.8 g/dL Normal 11.5-15.5 [facility] Comment on above: Order Comment: Speci men Type: BLOOD SPECIMENOrdering Facility: [facility] Address: [address] [place] [address] Performed By: #### 5 8410-2 ####[facility] LABCLIA [id number] [place] [address] [facility] MCH (RBC) [Entitic mass] 30.5 pg Normal 26.0-34.0 [facility] Comment on above: Order Comment: Speci men Type: BLOOD SPECIMENOrdering Facility: [facility] Address: [address] [place] [address] Performed By: #### 5 8410-2 ####[facility] LABCLIA [id number] [place] [address] [facility] MCHC (RBC) [Mass/Vol] 32.9 g/dL Normal 30.5-36.0 [facility] Comment on above: Order Comment: Speci men Type: BLOOD SPECIMENOrdering Facility: [facility] Address: [address] [place] [address] Performed By: #### 5 8410-2 ####[facility] LABCLIA [id number] [facility] [place] [address] [place] [facility] MCV (RBC) [Entitic vol] 92.6 fL Normal 80.0-100.0 [facility] Comment on above: Order Comment: Speci men Type: BLOOD SPECIMENOrdering Facility: [facility] Address: [address] [place] [address] Performed By: #### 5 8410-2 ####[facility] LABCLIA [id number] [facility] [place] [address] [place] [facility] Platelet mean volume (Bld) [Entitic vol] 9.4 fL Normal 9.0-12.7 [facility] Comment on above: Order Comment: Speci men Type: BLOOD SPECIMENOrdering Facility: [facility] Address: [address] [place] [address] Performed By: #### 5 8410-2 ####[facility] LABCLIA [id number] [facility] [place] [address] [facility] Platelets (Bld) [#/Vol] 294 10*3/uL Normal 150-400 [facility] Comment on above: Order Comment: Speci men Type: BLOOD SPECIMENOrdering Facility: [facility] Address: [address] [place] [address] Performed By: #### 5 8410-2 ####[facility] LABCLIA [id number] [place] [address] [place] RBC (Bld) [#/Vol] 4.86 10*6/uL Normal 3.90-5.20 [facility] Comment on above: Order Comment: Speci men Type: BLOOD SPECIMENOrdering Facility: [facility] Address: [address] [place] [address] Performed By: #### 5 8410-2 ####[facility] LABCLIA [id number] [place] [address] [facility] WBC (Bld) [#/Vol] 8.41 10*3/uL Normal 3.70-11.00 [facility] Comment on above: Order Comment: Speci men Type: BLOOD SPECIMENOrdering Facility: [facility] Address: [address] [place] [address] Performed By: #### 5 8410-2 ####[facility] LABCLIA [id number] [place] [address] [facility] ECG COMPLETEon 09-24-2024 ECG COMPLETE Normal [facility] ECG COMPLETE Normal [facility] ED NOTEon 09-24-2024 ED NOTE HNO ID: [id number] Author: DEVANTE HERNANDEZ RN Service: Emergency Medicine Author Type: Registered Nurse Type: ED Notes Filed: 09/24/2024 20:29 Note Text: [facility] present at bedside. Report given to transfer team. Normal [facility] ED NOTE HNO ID: [id number] Author: DEVANTE HERNANDEZ RN Service: Emergency Medicine Author Type: Registered Nurse Type: ED Notes Filed: 09/24/2024 19:24 Note Text: Change of shift report received from Rio O., RN. I assumed patient care at this time. Normal [facility] ED NOTE Normal [facility] ED NOTE HNO ID: [id number] Author: RIO CARRANZA RN Service: ? Author Type: Registered Nurse Type: ED Notes Filed: 09/24/2024 19:08 Note Text: Report to aruna hernandez rn. [facility] ED NOTE HNO ID: [id number] Author: RIO CARRANZA RN Service: ? Author Type: Registered Nurse Type: ED Notes Filed: 09/24/2024 19:01 Note Text: Attempted to call report to [facility], nurses are in report at this time and unable to take report on pt [facility] ED NOTE HNO ID: [id number] Author: RIO CARRANZA RN Service: ? Author Type: Registered Nurse Type: ED Notes Filed: 09/24/2024 18:47 Note Text: Meal tray delivered to pt [facility] ED NOTE HNO ID: [id number] Author: RIO CARRANZA RN Service: ? Author Type: Registered Nurse Type: ED Notes Filed: 09/24/2024 18:35 Note Text: Meal tray ordered for pt [facility] ED NOTE HNO ID: [id number] Author: RIO CARRANZA RN Service: ? Author Type: Registered Nurse Type: ED Notes Filed: 09/24/2024 17:42 Note Text: Pt states pain is better, but is still having chest pressure [facility] ED NOTE Normal [facility] ED NOTE HNO ID: [id number] Author: ?, ?, ? Service: Emergency Medicine Author Type: ? Type: ED Notes Filed: 09/24/2024 17:11 Note Text: Pt states that her pain has not improved after the first nitro was given [facility] ED NOTE HNO ID: [id number] Author: ?, ?, ? Service: Emergency Medicine Author Type: ? Type: ED Notes Filed: 09/24/2024 17:11 Note Text: Patient states her pain is a 4/10. She states that it feels like a pressure in her chest. First nitro given [facility] ED NOTE HNO ID: [id number] Author: ?, ?, ? Service: Emergency Medicine Author Type: ? Type: ED Notes Filed: 09/24/2024 17:03 Note Text: Dr. Almodovar at bedside [facility] ED NOTE HNO ID: [id number] Author: ?, ?, ? Service: Emergency Medicine Author Type: ? Type: ED Notes Filed: 09/24/2024 16:52 Note Text: Pt complains a 4/[address] Almodovar made aware. EKG ordered. [facility] ED NOTE HNO ID: [id number] Author: RIO CARRANZA RN Service: ? Author Type: Registered Nurse Type: ED Notes Filed: 09/24/2024 14:05 Note Text: Per dr almodovar ptt was redrawn [facility] ED NOTE HNO ID: [id number] Author: RIO CRARANZA RN Service: ? Author Type: Registered Nurse Type: ED Notes Filed: 09/24/2024 12:18 Note Text: Meal tray ordered for pt [facility] ED NOTE HNO ID: [id number] Author: RIO CARRANZA RN Service: ? Author Type: Registered Nurse Type: ED Notes Filed: 09/24/2024 07:34 Note Text: Received report from mikala gutierres rn. Pt resting in bed at this time, breakfast tray given to pt. [facility] ED NOTE HNO ID: [id number] Author: RIO ALMEIDA RN Service: Emergency Medicine Author Type: Registered Nurse Type: ED Notes Filed: 09/24/2024 06:13 Note Text: Patient up to bsc. CP gone. Patient states she feels better. [facility] ED NOTE HNO ID: [id number] Author: RIO ALMEIDA RN Service: Emergency Medicine Author Type: Registered Nurse Type: ED Notes Filed: 09/24/2024 00:55 Note Text: Patient converted to NSR with rate of 99 [facility] ED NOTE HNO ID: [id number] Author: RIO ALMEIDA RN Service: Emergency Medicine Author Type: Registered Nurse Type: ED Notes Filed: 09/24/2024 00:52 Note Text: Patient cardioverted at 200 joules Normal [facility] ED NOTE HNO ID: [id number] Author: RIO ALMEIDA, BERNABE Service: Emergency Medicine Author Type: Registered Nurse Type: ED Notes Filed: 09/24/2024 00:45 Note Text: Consent form signed for cardioversion. Respiratory at bedside. Normal [facility] ED PROV NOTEon 09-24-2024 ED PROV NOTE Normal [facility] HIGH SENSITIVITY TROPONIN To n 09-24-2024 Troponin T.cardiac High sensitivity method [Mass/Vol] 12 ng/L High <12 [facility] Comment on above: Order Comment: Prince omer Type: BLOOD SPECIMENOrdering Facility: [facility] Address: [address] [place] [address] Performed By: #### H STNT ####[facility] LABCLIA [id number] [address] Troponin T.cardiac High sensitivity method [Mass/Vol] 19 ng/L High <12 [facility] Comment on above: Order Comment: Prince omer Type: BLOOD SPECIMENOrdering Facility: [facility] Address: [address] [place] [address] Performed By: #### H STNT ####[facility] LABCLIA [id number] [place] [address] [facility] HISTORY PHYSICALon HISTORY PHYSICAL Normal [facility] PT panel Coag (PPP)on 2024 INR Coag (PPP) [Relative time] 1.0 {INR} Normal 0.9-1.3 [facility] Comment on above: Order Comment: Prince omer Type: BLOOD SPECIMENOrdering Facility: [facility] Address: [address] [place] [address] Result Comment: [place] min K Antagonist (VKA) Therapeutic Range: INR 2 to 3 (Target INR of 2.5)Note: For patients treated with VKA drugs, such as warfarin, the [employer] 2012 Guideline recommends [...] al. Chest 2012, 141:7S-47SNishimshruthi RA, et al. [facility] 2017, 70: 252-289 Performed By: #### 3 4528-0, 90253-2 ####[facility]ITAL[facility] [id number] [address] [facility] PT Coag (PPP) [Time] 11.0 s Normal 9.7-13.0 [facility] Comment on above: Order Comment: Pricne omer Type: BLOOD SPECIMENOrdering Facility: [facility] Address: [address] [place] [address] Performed By: #### 3 4528-0, 29675-5 ####[facility] LABORATORYCLIA [id number] INR Coag (PPP) [Relative time] 1.0 {INR} Normal 0.9-1.3 [facility] Comment on above: Order Comment: Prince omer Type: BLOOD SPECIMENOrdering Facility: [facility] Address: [address] [place] [address] Result Comment: [place] min K Antagonist (VKA) Therapeutic Range: INR 2 to 3 (Target INR of 2.5)Note: For patients treated with VKA drugs, such as warfarin, the [employer] 2012 Guideline recommends [...] ronni. Chest 2012, 141:7S-47SFransisca SCHMITZ, et al. [facility] 2017, 70: 252-289 Performed By: #### 3 4528-0, 82580-7 ####[facility] LABCLIA [id number] [place] [address] [facility] PT Coag (PPP) [Time] 10.5 s Normal <13.1 [facility] Comment on above: Order Comment: Prince omer Type: BLOOD SPECIMENOrdering Facility: [facility] Address: [address] [place] [address] Performed By: #### 3 4528-0, 41265-5 ####[facility]SOU[facility] [id number] [place] [address] [facility] INR Coag (PPP) [Relative time] 1.0 {INR} Normal 0.9-1.3 [facility] Comment on above: Order Comment: Prince omer Type: BLOOD SPECIMENOrdering Facility: [facility] Address: [address] [place] [address] Result Comment: [place] min K Antagonist (VKA) Therapeutic Range: INR 2 to 3 (Target INR of 2.5)Note: For patients treated with VKA drugs, such as warfarin, the [employer] 2012 Guideline recommends [...] Doyle. Chest 2012, 141:7S-47SFransisca SCHMITZ et al. [facility] 2017, 70: 252-289 Performed By: #### 1 4979-9, 25426-5 ####[facility] LABCLIA [id number] [place] [address] [facility] PT Coag (PPP) [Time] 10.5 s Normal <13.1 [facility] Comment on above: Order Comment: Speci men Type: BLOOD SPECIMENOrdering Facility: [facility] Address: [address] [place] [address] Performed By: #### 1 4979-9, 84366-5 ####[facility] LABCLIA [id number] [place] [address] [facility] aPTT PPPon 09-24-2024 aPTT Coag (PPP) [Time] 36.1 s High 23.0-32.4 [facility] Comment on above: Order Comment: Speci men Type: BLOOD SPECIMENOrdering Facility: [facility] Address: [address] [place] [address] Performed By: #### 3 4528-0, 38836-8 ####[facility] LABORATORYCLIA [id number] [place], [place] [address] [place] [address] aPTT Coag (PPP) [Time] 39.8 s High 23.0-32.4 [facility] Comment on above: Order Comment: Speci men Type: BLOOD SPECIMENOrdering Facility: [facility] Address: [address] [place] [address] Performed By: #### 1 4979-9 ####[facility] LABCLIA [id number] [place] [address] [facility] aPTT Coag (PPP) [Time] 27.6 s Normal 23.0-32.4 [facility] Comment on above: Order Comment: Speci men Type: BLOOD SPECIMENOrdering Facility: [facility] Address: [address] [place] [address] Performed By: #### 1 4979-9 ####[facility] LABCLIA [id number] [place] [address] [facility] aPTT Coag (PPP) [Time] 93.7 s High 23.0-32.4 [facility] Comment on above: Order Comment: Speci men Type: BLOOD SPECIMENOrdering Facility: [facility] Address: [address] [place], [place] [address] Performed By: #### 3 4528-0, 12360-9 ####[facility] LABCLIA [id number] [place] [address] [facility] aPTT Coag (PPP) [Time] 23.6 s Normal 23.0-32.4 [facility] Comment on above: Order Comment: Speci men Type: BLOOD SPECIMENOrdering Facility: [facility] Address: [address] [place], [place] [address] Performed By: #### 1 4979-9, 56556-5 ####[facility] LABSOU[facility]WE[facility] [id number] [place] [address] [facility] ALK Phos Isoenzymeon 05-2 025 ALK PHOS, S 164 IU/L High 44-121 [facility] Comment on above: Order Comment: PLEAS E ADD TO BLOOD IN THE LAB. THANK YOU!! Performed By: #### L 3250.0100 ####[facility] [address] [place], [place], [address] BONE FRACTION 49 Normal 14-68 [facility] Comment on above: Order Comment: PLEAS E ADD TO BLOOD IN THE LAB. THANK YOU!! Performed By: #### L 3250.0100 ####[facility] [address] [place], [place], [id number] INTESTINAL FRAC 8 Normal 0-18 [facility] Comment on above: Order Comment: PLEAS E ADD TO BLOOD IN THE LAB. THANK YOU!! Result Comment: Perf ormed at: - [facility] [address] [id number] Storage Facility Rental Clerk: Aj Lopez PhD, Phone: [phone] Performed By: #### L 3250.0100 ####[facility] [address] [place], [place], [address] LIVER FRACTION 43 Normal 18-85 [facility] Comment on above: Order Comment: BRYANNA Hutchinson ADD TO BLOOD IN THE LAB. THANK YOU!! Performed By: #### L 3250.0100 ####[facility] [address] [place], [place], [phone] CBC W Auto Differential pane l (Bld)on 09-23-2024 Basophils (Bld) [#/Vol] 0.06 10*3/uL Normal <0.11 [facility] Comment on above: Order Comment: Speci men Type: BLOOD SPECIMENOrdering Facility: [facility] Address: [address] [place] [address] Performed By: #### 5 7021-8 ####[facility] LABCLIA [id number] [place] [address] [place] Basophils/100 WBC (Bld) 0.8 % Normal [facility] Comment on above: Order Comment: Speci men Type: BLOOD SPECIMENOrdering Facility: [facility] Address: [address] [place] [address] Performed By: #### 5 7021-8 ####[facility] LABCLIA [id number] [place] [address] [place] Differential cell count method Nom (Bld) Auto Normal [facility] Comment on above: Order Comment: Speci men Type: BLOOD SPECIMENOrdering Facility: [facility] Address: [address] [place] [address] Performed By: #### 5 7021-8 ####[facility] LABCLIA [id number] [place] [address] [place] Eosinophils (Bld) [#/Vol] 0.31 10*3/uL Normal <0.46 [facility] Comment on above: Order Comment: Speci men Type: BLOOD SPECIMENOrdering Facility: [facility] Address: [address] [place] [address] Performed By: #### 5 7021-8 ####[facility] LABCLIA [id number] [facility] [place] [address] [place] Eosinophils/100 WBC (Bld) 3.9 % Normal [facility] Comment on above: Order Comment: Speci men Type: BLOOD SPECIMENOrdering Facility: [facility] Address: [address] [place] [address] Performed By: #### 5 7021-8 ####[facility] LABCLIA [id number] [facility] [place] [address] [place] Erythrocyte distribution width (RBC) [Ratio] 12.4 % Normal 11.5-15.0 [facility] Comment on above: Order Comment: Speci men Type: BLOOD SPECIMENOrdering Facility: [facility] Address: [address] [place] [address] Performed By: #### 5 7021-8 ####[facility] LABCLIA [id number] [facility] [place] [address] [place] Hematocrit (Bld) [Volume fraction] 48.1 % High 36.0-46.0 [facility] Comment on above: Order Comment: Speci men Type: BLOOD SPECIMENOrdering Facility: [facility] Address: [address] [place] [address] Performed By: #### 5 7021-8 ####[facility] LABCLIA [id number] [facility] [place] [address] [place] Hemoglobin (Bld) [Mass/Vol] 15.7 g/dL High 11.5-15.5 [facility] Comment on above: Order Comment: Speci men Type: BLOOD SPECIMENOrdering Facility: [facility] Address: [address] [place] [address] Performed By: #### 5 7021-8 ####[facility] LABCLIA [id number] [facility] [place] [address] [place] Immature granulocytes (Bld) [#/Vol] 10*3/uL Normal <0.10 [facility] Comment on above: Order Comment: Speci men Type: BLOOD SPECIMENOrdering Facility: [facility] Address: [address] [place] [address] Performed By: #### 5 7021-8 ####[facility] LABCLIA [id number] [place] [address] [place] [facility] Immature granulocytes/100 WBC (Bld) 0.1 % Normal [facility] Comment on above: Order Comment: Speci men Type: BLOOD SPECIMENOrdering Facility: [facility] Address: [address] [place] [address] Performed By: #### 5 7021-8 ####[facility] LABCLIA [id number] [place] [address] [place] Lymphocytes (Bld) [#/Vol] 2.65 10*3/uL Normal 1.00-4.00 [facility] Comment on above: Order Comment: Speci men Type: BLOOD SPECIMENOrdering Facility: [facility] Address: [address] [place] [address] Performed By: #### 5 7021-8 ####[facility] LABCLIA [id number] [place] [id number] [place] [facility] Lymphocytes/100 WBC (Bld) 33.2 % Normal [facility] Comment on above: Order Comment: Speci men Type: BLOOD SPECIMENOrdering Facility: [facility] Address: [address] [place] [address] Performed By: #### 5 7021-8 ####[facility] LABCLIA [id number] [place] [address] [place] MCH (RBC) [Entitic mass] 30.5 pg Normal 26.0-34.0 [facility] Comment on above: Order Comment: Speci men Type: BLOOD SPECIMENOrdering Facility: [facility] Address: [address] [place] [address] Performed By: #### 5 7021-8 ####[facility] LABCLIA [id number] [facility] [place] [address] [place] MCHC (RBC) [Mass/Vol] 32.6 g/dL Normal 30.5-36.0 [facility] Comment on above: Order Comment: Speci men Type: BLOOD SPECIMENOrdering Facility: [facility] Address: [address] [place] [address] Performed By: #### 5 7021-8 ####[facility] LABCLIA [id number] [place] [address] [place] MCV (RBC) [Entitic vol] 93.4 fL Normal 80.0-100.0 [facility] Comment on above: Order Comment: Speci men Type: BLOOD SPECIMENOrdering Facility: [facility] Address: [address] [place] [address] Performed By: #### 5 7021-8 ####[facility] LABCLIA [id number] [place] [address] [place] Monocytes (Bld) [#/Vol] 0.73 10*3/uL Normal <0.87 [facility] Comment on above: Order Comment: Speci men Type: BLOOD SPECIMENOrdering Facility: [facility] Address: [address] [place] [address] Performed By: #### 5 7021-8 ####[facility] LABCLIA [id number] [place] [address] [facility] Monocytes/100 WBC (Bld) 9.2 % Normal [facility] Comment on above: Order Comment: Speci men Type: BLOOD SPECIMENOrdering Facility: [facility] Address: [address] [place] [address] Performed By: #### 5 7021-8 ####[facility] LABCLIA [id number] [place] [address] [place] Neutrophils (Bld) [#/Vol] 4.21 10*3/uL Normal 1.45-7.50 [facility] Comment on above: Order Comment: Speci men Type: BLOOD SPECIMENOrdering Facility: [facility] Address: [address] [place] [address] Performed By: #### 5 7021-8 ####[facility] LABCLIA [id number] [place] [address] [place] Neutrophils/100 WBC (Bld) 52.8 % Normal [facility] Comment on above: Order Comment: Speci men Type: BLOOD SPECIMENOrdering Facility: [facility] Address: [address] [place] [address] Performed By: #### 5 7021-8 ####[facility] LABCLIA [id number] [place] [facility] [place] [address] [facility] [place] Nucleated RBC (Bld) [#/Vol] Normal [facility] Comment on above: Order Comment: Speci men Type: BLOOD SPECIMENOrdering Facility: [facility] Address: [address] [place] [address] Performed By: #### 5 7021-8 ####[facility] LABCLIA [id number] [place] [facility] [place] [address] [place] Nucleated RBC/100 WBC (Bld) [Ratio] Normal [facility] Comment on above: Order Comment: Speci men Type: BLOOD SPECIMENOrdering Facility: [facility] Address: [address] [place] [address] Performed By: #### 5 7021-8 ####[facility] LABCLIA [id number] [place] [address] [place] Platelet mean volume (Bld) [Entitic vol] 9.4 fL Normal 9.0-12.7 [facility] Comment on above: Order Comment: Speci men Type: BLOOD SPECIMENOrdering Facility: [facility] Address: [address] [place] [address] Performed By: #### 5 7021-8 ####[facility] LABCLIA [id number] [place] [address] [place] Platelets (Bld) [#/Vol] 334 10*3/uL Normal 150-400 [facility] Comment on above: Order Comment: Speci men Type: BLOOD SPECIMENOrdering Facility: [facility] Address: [address] [place] [address] Performed By: #### 5 7021-8 ####[facility] LABCLIA [id number] [place] [address] [facility] RBC (Bld) [#/Vol] 5.15 10*6/uL Normal 3.90-5.20 [facility] Comment on above: Order Comment: Speci men Type: BLOOD SPECIMENOrdering Facility: [facility] Address: [address] [place] [address] Performed By: #### 5 7021-8 ####[facility] LABCLIA [id number] [place] [address] [facility] WBC (Bld) [#/Vol] 7.97 10*3/uL Normal 3.70-11.00 [facility] Comment on above: Order Comment: Speci men Type: BLOOD SPECIMENOrdering Facility: [facility] Address: [address] [place] [address] Performed By: #### 5 7021-8 ####[facility] LABCLIA [id number] [place] [address] [facility] Comprehensive metabolic 2000 panelon 09-23-2024 Albumin [Mass/Vol] 4.3 g/dL Normal 3.9-4.9 [facility] Comment on above: Order Comment: Speci men Type: BLOOD SPECIMENOrdering Facility: [facility] Address: [address] [place] [address] Performed By: #### 1 9123-9, 27602-5 ####[facility] LABCLIA [id number] [place] [address] [facility] ALP [Catalytic activity/Vol] 163 U/L High 34-123 [facility] Comment on above: Order Comment: Speci men Type: BLOOD SPECIMENOrdering Facility: [facility] Address: [address] [place] [address] Performed By: #### 1 23-9, 30407-1 ####[facility] LABCLIA [id number] [place] [address] [place] ALT With P-5'-P [Catalytic activity/Vol] 13 U/L Normal 7-38 [facility] Comment on above: Order Comment: Speci men Type: BLOOD SPECIMENOrdering Facility: [facility] Address: [address] [place] [address] Performed By: #### 1 23-9, 02281-2 ####[facility] LABCLIA [id number] [place] [address] [place] Anion gap [Moles/Vol] 13 mmol/L Normal 8-15 [facility] Comment on above: Order Comment: Speci men Type: BLOOD SPECIMENOrdering Facility: [facility] Address: [address] [place], [place] [address] Performed By: #### 1 9, 14214-3 ####[facility] LABCLIA [id number] [place] [facility] [place] [address] [place] AST With P-5'-P [Catalytic activity/Vol] 13 U/L Normal 13-35 [facility] Comment on above: Order Comment: Speci men Type: BLOOD SPECIMENOrdering Facility: [facility] Address: [address] [place] [address] Performed By: #### 1 23-9, 14317-2 ####[facility] LABCLIA [id number] [place] [facility] [place] [address] [place] Bilirubin [Mass/Vol] 0.3 mg/dL Normal 0.2-1.3 [facility] Comment on above: Order Comment: Speci men Type: BLOOD SPECIMENOrdering Facility: [facility] Address: [address] [place] [address] Performed By: #### 1 23-9, 13982-6 ####[facility] LABCLIA [id number] [facility] [place] [address] [place] Calcium [Mass/Vol] 10.3 mg/dL High 8.5-10.2 [facility] Comment on above: Order Comment: Speci men Type: BLOOD SPECIMENOrdering Facility: [facility] Address: [address] [place] [address] Performed By: #### 1 9123-9, 27365-6 ####[facility] LABCLIA [id number] [facility] [place] [address] [place] Chloride [Moles/Vol] 100 mmol/L Normal 98-107 [facility] Comment on above: Order Comment: Speci men Type: BLOOD SPECIMENOrdering Facility: [facility] Address: [address] [place] [address] Performed By: #### 1 9123-9, ####[facility] LABCLIA [id number] [place] [address] [place] CO2 [Moles/Vol] 26 mmol/L Normal 22-30 [facility] Comment on above: Order Comment: Speci men Type: BLOOD SPECIMENOrdering Facility: [facility] Address: [address] [place] [address] Performed By: #### 1 9123-9, 45591-3 ####[facility] LABCLIA [id number] [place] [address] [place] Creatinine [Mass/Vol] 0.85 mg/dL Normal 0.58-0.96 [facility] Comment on above: Order Comment: Speci men Type: BLOOD SPECIMENOrdering Facility: [facility] Address: [address] [place] [address] Performed By: #### 1 9123-9, 46652-8 ####[facility] LABCLIA [id number] [place] [address] [facility] Creatinine and Glomerular filtration rate.predicted panel (S/P/Bld) 74 mL/min/1.73m??? Normal >=60 [facility] Comment on above: Order Comment: Speci men Type: BLOOD SPECIMENOrdering Facility: [facility] Address: [address] [place] [address] Result Comment: Conchita mated Glomerular Filtration Rate [...] actual GFR. Performed By: #### 1 9123-9, 88168-7 ####[facility] LABIA [id number] [place] [address] [place] Glucose [Mass/Vol] 124 mg/dL High 74-99 [facility] Comment on above: Order Comment: Prince omer Type: BLOOD SPECIMENOrdering Facility: [facility] Address: [address] [place] [address] Result Comment: The [place] Diabetes Association (ADA) provides guidance for cutoff [...] Standards of Medical Care in Diabetes 2016, [place] [employer]. Diabetes Care. 2016.39(Suppl 1). Performed By: #### 1 9123-9, 26251-3 ####[facility] LABIA [id number] [place] [address] [place] Potassium [Moles/Vol] 3.6 mmol/L Low 3.7-5.1 [facility] Comment on above: Order Comment: Prince omer Type: BLOOD SPECIMENOrdering Facility: [facility] Address: [address] [place] [id number] Performed By: #### 1 9123-9, 21481-4 ####[facility] LABCLIA [id number] [facility] [place] [address] [place] Protein [Mass/Vol] 6.8 g/dL Normal 6.3-8.0 [facility] Comment on above: Order Comment: Speci men Type: BLOOD SPECIMENOrdering Facility: [facility] Address: [address] [place] [address] Performed By: #### 1 9123-9, 70208-7 ####[facility] LABCLIA [id number] [facility] [place] [address] [place] Sodium [Moles/Vol] 139 mmol/L Normal 136-144 [facility] Comment on above: Order Comment: Speci men Type: BLOOD SPECIMENOrdering Facility: [facility] Address: [address] [place] [address] Performed By: #### 1 9123-9, 37445-0 ####[facility] LABCLIA [id number] [facility] [place] [address] [place] Urea nitrogen [Mass/Vol] 20 mg/dL Normal 7-21 [facility] Comment on above: Order Comment: Speci men Type: BLOOD SPECIMENOrdering Facility: [facility] Address: [address] [place] [address] Performed By: #### 1 9123-9, 42085-0 ####[facility] LABCLIA [id number] [facility] [place] [address] [place] ECG COMPLETEon 09-23-2024 ECG COMPLETE Normal [facility] ED NOTEon 09-23-2024 ED NOTE HNO ID: [id number] Author: RIO ALMEIDA, BERNABE Service: Emergency Medicine Author Type: Registered Nurse Type: ED Notes Filed: 09/23/2024 22:49 Note Text: Patient c/o unable to catch breath 2liters n/c applied. Daughter at bedside. Normal [facility] ED PROV NOTEon 09-23-2024 ED PROV NOTE Normal [facility] Magnesium SerPl-mCncon 09-23 Magnesium [Mass/Vol] 2.0 mg/dL Normal 1.7-2.3 [facility] Comment on above: Order Comment: Speci men Type: BLOOD SPECIMENOrdering Facility: [facility] Address: [address] [place] [address] Performed By: #### 1 9123-9, 15439-2 ####[facility] LABCLIA [id number] [place] [address] [place] XR CHEST 1V FRONTALon 2024 XR CHEST 1V FRONTAL Normal [facility] Basic metabolic 2000 panelon 09-22-2024 Anion gap [Moles/Vol] 14 mmol/L Normal 8-15 [facility] Comment on above: Order Comment: Speci men Type: BLOOD SPECIMENOrdering Facility: [facility] Address: [address] [place] [address] Performed By: #### 2 4321-2, ####[facility]ORATORYCLIA [id number] [place] [address] [place] Calcium [Mass/Vol] 9.8 mg/dL Normal 8.5-10.2 [facility] Comment on above: Order Comment: Speci men Type: BLOOD SPECIMENOrdering Facility: [facility] Address: [address] [place] [address] Performed By: #### 2 4321-2, ####[facility]ORATORYCLIA [id number] [place] [address] [place] Chloride [Moles/Vol] 99 mmol/L Normal 98-107 [facility] Comment on above: Order Comment: Speci men Type: BLOOD SPECIMENOrdering Facility: [facility] Address: [address] [place] [address] Performed By: #### 2 4321-2, ####[facility]ORATORYCLIA [id number] [place] [address] [place] CO2 [Moles/Vol] 23 mmol/L Normal 22-30 [facility] Comment on above: Order Comment: Speci men Type: BLOOD SPECIMENOrdering Facility: [facility] Address: [address] [place] [address] Performed By: #### 2 4321-, ####[facility]PITALCLIA [id number] [place] [id number] [place] [facility] Creatinine [Mass/Vol] 0.85 mg/dL Normal 0.58-0.96 [facility] Comment on above: Order Comment: Speci men Type: BLOOD SPECIMENOrdering Facility: [facility] Address: [address] [place] [address] Performed By: #### 2 432-2, ####[facility] HOSPITALIA [id number] [address] Creatinine and Glomerular filtration rate.predicted panel (S/P/Bld) 74 mL/min/1.73m??? Normal >=60 [facility] Comment on above: Order Comment: Prince men Type: BLOOD SPECIMENOrdering Facility: [facility] Address: [address] [place] [address] Result Comment: Conchita mated Glomerular Filtration Rate [...] actual GFR. Performed By: #### 2 4321-, ####[facility] LABORATORYIA [id number] [place] [id number] [place] Glucose [Mass/Vol] 97 mg/dL Normal 74-99 [facility] Comment on above: Order Comment: Anthonylizett peter Type: BLOOD SPECIMENOrdering Facility: [facility] Address: [address] [place] [address] Result Comment: The [place] Diabetes Association (ADA) provides guidance for cutoff [...] Standards of Medical Care in Diabetes 2016, [place] [employer]. Diabetes Care. 2016.39(Suppl 1). Performed By: #### 2 4320-09, ####[facility] LABORATORYCLIA [id number] [place] [address] [place] Potassium [Moles/Vol] 3.6 mmol/L Low 3.7-5.1 [facility] Comment on above: Order Comment: Prince omer Type: BLOOD SPECIMENOrdering Facility: [facility] Address: [address] [place] [address] Performed By: #### 2 4320-09, ####[facility] HOSPITALIA [id number] [address] STATES OF [facility] Sodium [Moles/Vol] 136 mmol/L Normal 136-144 [facility] Comment on above: Order Comment: Prince omer Type: BLOOD SPECIMENOrdering Facility: [facility] Address: [address] [place] [address] Performed By: #### 2 4320-09, ####[facility] LABORATORYCLIA [id number] [address] STATES OF [facility] Urea nitrogen [Mass/Vol] 23 mg/dL High 7-21 [facility] Comment on above: Order Comment: Prince omer Type: BLOOD SPECIMENOrdering Facility: [facility] Address: [address] [place] [address] Performed By: #### 2 4320-09, ####[facility] LABORATORYCLIA [id number] [place] [address] [place] CBC W Auto Differential pane l (Bld)on 09-22-2024 Basophils (Bld) [#/Vol] 0.06 10*3/uL Normal <0.11 [facility] Comment on above: Order Comment: Speci men Type: BLOOD SPECIMENOrdering Facility: [facility] Address: [address] [place] [address] Performed By: #### 5 7021-8 ####[facility]ORATORYCLIA [id number] [address] STATES [facility] Basophils/100 WBC (Bld) 0.8 % Normal [facility] Comment on above: Order Comment: Speci men Type: BLOOD SPECIMENOrdering Facility: [facility] Address: [address] [place] [address] Performed By: #### 5 7021-8 ####[facility]ORATORYCLIA [id number] [address] Differential cell count method Nom (Bld) Auto Normal [facility] Comment on above: Order Comment: Speci men Type: BLOOD SPECIMENOrdering Facility: [facility] Address: [address] [place] [address] Performed By: #### 5 7021-8 ####[facility]ORATORYCLIA [id number] [address] [place] Eosinophils (Bld) [#/Vol] 0.12 10*3/uL Normal <0.46 [facility] Comment on above: Order Comment: Speci men Type: BLOOD SPECIMENOrdering Facility: [facility] Address: [address] [place] [address] Performed By: #### 5 7021-8 ####[facility]ORATORYCLIA [id number] [address] STATES [facility] Eosinophils/100 WBC (Bld) 1.7 % Normal [facility] Comment on above: Order Comment: Speci men Type: BLOOD SPECIMENOrdering Facility: [facility] Address: [address] [place] [address] Performed By: #### 5 7021-8 ####[facility]ORATORYCLIA [id number] [place] [address] [place] Erythrocyte distribution width (RBC) [Ratio] 12.3 % Normal 11.5-15.0 [facility] Comment on above: Order Comment: Speci men Type: BLOOD SPECIMENOrdering Facility: [facility] Address: [address] [place] [address] Performed By: #### 5 7021-8 ####[facility]ORATORYCLIA [id number] [address] [place] Hematocrit (Bld) [Volume fraction] 44.3 % Normal 36.0-46.0 [facility] Comment on above: Order Comment: Speci men Type: BLOOD SPECIMENOrdering Facility: [facility] Address: [address] [place] [address] Performed By: #### 5 7021-8 ####[facility] LABORATORYCLIA [id number] [address] [place] Hemoglobin (Bld) [Mass/Vol] 14.9 g/dL Normal 11.5-15.5 [facility] Comment on above: Order Comment: Speci men Type: BLOOD SPECIMENOrdering Facility: [facility] Address: [address] [place] [address] Performed By: #### 5 7021-8 ####[facility] LABORATORYCLIA [id number] [address] OF [place] Immature granulocytes (Bld) [#/Vol] 10*3/uL Normal <0.10 [facility] Comment on above: Order Comment: Speci men Type: BLOOD SPECIMENOrdering Facility: [facility] Address: [address] [place] [address] Performed By: #### 5 7021-8 ####[facility]ORATORYCLIA [id number] [address] [place] Immature granulocytes/100 WBC (Bld) 0.3 % Normal [facility] Comment on above: Order Comment: Speci men Type: BLOOD SPECIMENOrdering Facility: [facility] Address: [address] [place] [address] Performed By: #### 5 7021-8 ####[facility]ORATORYCLIA [id number] [address] [place] Lymphocytes (Bld) [#/Vol] 1.29 10*3/uL Normal 1.00-4.00 [facility] Comment on above: Order Comment: Speci men Type: BLOOD SPECIMENOrdering Facility: [facility] Address: [address] [place] [address] Performed By: #### 5 7021-8 ####[facility] LABORATORYCLIA [id number] [address] Lymphocytes/100 WBC (Bld) 18.2 % Normal [facility] Comment on above: Order Comment: Speci men Type: BLOOD SPECIMENOrdering Facility: [facility] Address: [address] [place] [address] Performed By: #### 5 7021-8 ####[facility] LABORATORYCLIA [id number] [address] [place] MCH (RBC) [Entitic mass] 31.1 pg Normal 26.0-34.0 [facility] Comment on above: Order Comment: Speci men Type: BLOOD SPECIMENOrdering Facility: [facility] Address: [address] [place] [address] Performed By: #### 5 7021-8 ####[facility] LABORATORYCLIA [id number] [address] [place] MCHC (RBC) [Mass/Vol] 33.6 g/dL Normal 30.5-36.0 [facility] Comment on above: Order Comment: Speci men Type: BLOOD SPECIMENOrdering Facility: [facility] Address: [address] [place] [address] Performed By: #### 5 7021-8 ####[facility] LABORATORYCLIA [id number] [address] MCV (RBC) [Entitic vol] 92.5 fL Normal 80.0-100.0 [facility] Comment on above: Order Comment: Speci men Type: BLOOD SPECIMENOrdering Facility: [facility] Address: [address] [place] [address] Performed By: #### 5 7021-8 ####[facility]ORATORYCLIA [id number] [place] [address] [place] Monocytes (Bld) [#/Vol] 0.41 10*3/uL Normal <0.87 [facility] Comment on above: Order Comment: Speci men Type: BLOOD SPECIMENOrdering Facility: [facility] Address: [address] [place] [address] Performed By: #### 5 7021-8 ####[facility]ORATORYCLIA [id number] [address] [place] Monocytes/100 WBC (Bld) 5.8 % Normal [facility] Comment on above: Order Comment: Speci men Type: BLOOD SPECIMENOrdering Facility: [facility] Address: [address] [place] [address] Performed By: #### 5 7021-8 ####[facility]ATORYCLIA [id number] [address] [place] Neutrophils (Bld) [#/Vol] 5.20 10*3/uL Normal 1.45-7.50 [facility] Comment on above: Order Comment: Speci men Type: BLOOD SPECIMENOrdering Facility: [facility] Address: [address] [place] [address] Performed By: #### 5 7021-8 ####[facility]ORATORYCLIA [id number] [address] [place] Neutrophils/100 WBC (Bld) 73.2 % Normal [facility] Comment on above: Order Comment: Speci men Type: BLOOD SPECIMENOrdering Facility: [facility] Address: [address] [place] [address] Performed By: #### 5 7021-8 ####[facility]ORATORYCLIA [id number] [place] [address] [place] Nucleated RBC (Bld) [#/Vol] 10*3/uL Normal <0.01 [facility] Comment on above: Order Comment: Speci men Type: BLOOD SPECIMENOrdering Facility: [facility] Address: [address] [place] [address] Performed By: #### 5 7021-8 ####[facility] LABORATORYCLIA [id number] [address] [place] Nucleated RBC/100 WBC (Bld) [Ratio] 0.0 /100 WBC Normal [facility] Comment on above: Order Comment: Speci men Type: BLOOD SPECIMENOrdering Facility: [facility] Address: [address] [place] [address] Performed By: #### 5 7021-8 ####[facility] LABORATORYCLIA [id number] [place] [address] [place] Platelet mean volume (Bld) [Entitic vol] 9.4 fL Normal 9.0-12.7 [facility] Comment on above: Order Comment: Speci men Type: BLOOD SPECIMENOrdering Facility: [facility] Address: [address] [place] [address] Performed By: #### 5 7021-8 ####[facility] LABORATORYCLIA [id number] [place] [address] [place] Platelets (Bld) [#/Vol] 283 10*3/uL Normal 150-400 [facility] Comment on above: Order Comment: Speci men Type: BLOOD SPECIMENOrdering Facility: [facility] Address: [address] [place] [address] Performed By: #### 5 7021-8 ####[facility] LABORATORYCLIA [id number] [place] [address] [place] RBC (Bld) [#/Vol] 4.79 10*6/uL Normal 3.90-5.20 [facility] Comment on above: Order Comment: Speci men Type: BLOOD SPECIMENOrdering Facility: [facility] Address: [address] [place] [address] Performed By: #### 5 7021-8 ####[facility] LABORATORYCLIA [id number] [address] OF [place] WBC (Bld) [#/Vol] 7.10 10*3/uL Normal 3.70-11.00 [facility] Comment on above: Order Comment: Speci men Type: BLOOD SPECIMENOrdering Facility: [facility] Address: [address] [place] [address] Performed By: #### 5 7021-8 ####[facility] LABORATORYCLIA [id number] [address] [place] CNPNon 09-22-2024 CNPN Normal [facility] CTA CHEST (NON GATED) W IVCO N PEon 09-22-2024 CTA CHEST (NON GATED) W IVCON PE Normal [facility] D dimer FEU PPP-mCncon 09-22 Fibrin D-dimer FEU (PPP) [Mass/Vol] 530 ng/mL FEU High <500 [facility] Comment on above: Order Comment: Speci men Type: BLOOD SPECIMENOrdering Facility: [facility] Address: [address] [place] [address] Performed By: #### 4 8065-7 ####[facility] LABCLIA [id number] [place], [place] [address] [place] [address] [place] ECG COMPLETEon 09-22-2024 ECG COMPLETE Normal [facility] ED NOTEon 09-22-2024 ED NOTE Normal [facility] ED NOTE Normal [facility] ED PROV NOTEon 09-22-2024 ED PROV NOTE Normal [facility] ED Triage Noteon 09-22-2024 ED Triage Note Normal [facility] Fibrin D-dimer FEU (PPP) [Ma ss/Vol]on 09-22-2024 D DIMER AGE-RELATED CUTOFF 690 ng/mL FEU Normal [facility] Comment on above: Order Comment: Speci men Type: BLOOD SPECIMENOrdering Facility: [facility] Address: [address] [place] [address] Performed By: #### 4 8065-7 ####[facility] LABCLIA [id number] [place] [address] [place] HIGH SENSITIVITY TROPONIN To n 09-22-2024 Troponin T.cardiac High sensitivity method [Mass/Vol] 6 ng/L Normal <12 [facility] Comment on above: Order Comment: Speci men Type: BLOOD SPECIMENOrdering Facility: [facility] Address: [address] [place] [address] Performed By: #### H STNT ####[facility] LABCLIA [id number] [address] HIGH SENSITIVITY TROPONIN T (INITIAL)on 09-22-2024 Troponin T.cardiac High sensitivity method [Mass/Vol] <6 Normal <12 [facility] Comment on above: Order Comment: Speci men Type: BLOOD SPECIMENOrdering Facility: [facility] Address: [address] [place] [address] Performed By: #### L [id number] ####[facility]ITALCLIA [id number] [address] HIGH SENSITIVITY TROPONIN T (SECOND)on 09-22-2024 Troponin T.cardiac High sensitivity method [Mass/Vol] 7 ng/L Normal <12 [facility] Comment on above: Order Comment: Speci men Type: BLOOD SPECIMENOrdering Facility: [facility] Address: [address] [place] [address] Performed By: #### L [id number] ####[facility] LABORATORYCLIA [id number] [address] Magnesium SerPl-mCncon 09-22 Magnesium [Mass/Vol] 2.1 mg/dL Normal 1.7-2.3 [facility] Comment on above: Order Comment: Speci men Type: BLOOD SPECIMENOrdering Facility: [facility] Address: [address] [place] [address] Performed By: #### 2 4321-2, 69472-5 ####[facility] LABORATORYCLIA [id number] [address] [place] NT-proBNP SerPl-mCncon 09-22 Natriuretic peptide.B prohormone N-Terminal [Mass/Vol] 171 pg/mL High <125 [facility] Comment on above: Order Comment: Speci men Type: BLOOD SPECIMENOrdering Facility: [facility] Address: [place] [address] Performed By: #### 3 3762-6 ####[facility] LABCLIA [id number] [place] [address] [place] XR CHEST 2V FRONTAL/LATon XR CHEST 2V FRONTAL/LAT Normal [facility] ALP Bone [Catalytic fraction ]Ordered By: Verónica Lopez on 09-21-2024 Alkaline Phosphatase Iso-Bone 49 % 14-68 [facility] ALP Intest [Catalytic fracti on]Ordered By: Verónica Lopez on 09-21-2024 Alkaline Phosphatase Iso-Intestine 8 % 0-18 [facility] Comment on above: Performed at: [address] [id number] Director: Aj Lopez PhD, Phone: [phone] ALP Liver [Catalytic fractio n]Ordered By: Verónica Lopez on 09-21-2024 Alkaline Phosphatase Iso-Liver 43 % 18-85 [facility] Absolute neutrophil countOrd ered By: Verónica Lopez on 09-21-2024 Neutrophils (Bld) [#/Vol] 4.8 10*3/uL 2.0-7.7 [facility] Albumin to globulin ratioOrd ered By: Verónica Lopez on 09-21-2024 Albumin/Globulin [Mass ratio] 1.3 {ratio} 0.9-2.4 [facility] Alkaline phosphatase, serumO rdered By: Verónica Lopez on 09-21-2024 Alkaline Phosphatase Isoenzymes 164 IU/L High 44-121 [facility] ALP [Catalytic activity/Vol] 164 U/L High 44-121 [facility] Basophil percentageOrdered B y: Verónica Lopez on 09-21-2024 Basophils/100 WBC (Bld) 0.9 % 0-1 [facility] Bilirubin, totalOrdered By: Verónica Lopez on 09-21-2024 Bilirubin [Mass/Vol] 0.60 mg/dL 0.20-1.00 [facility] Comment on above: For patients on eltr ombopag therapy, use of Dimension Morenci TBIL is not recommended. Blood urea nitrogen (BUN)/cr eatinine ratioOrdered By: Verónica Lopez on 09-21-2024 Urea nitrogen/Creatinine [Mass ratio] 16.4 mg/mg 10-20 [facility] CBC W/Diff, Automatedon Absolute Lymph 1.32 X10 3/uL Normal 0.83-4.51 [facility] Comment on above: Performed By: #### L 100.0100, L500.4050 ####[facility] [address] [place], [address] Absolute Neut 4.8 X10 3/uL Normal 2.0-7.7 [facility] Comment on above: Performed By: #### L 100.0100, L500.4050 ####[facility] [address] [place], [address] Basophils/100 WBC (Bld) 0.9 % Normal 0-1 [facility] Comment on above: Performed By: #### L 100.0100, L500.4050 ####[facility] [address] [place], [address] Eosinophils/100 WBC (Bld) 2.8 % Normal 0-5 [facility] Comment on above: Performed By: #### L 100.0100, L500.4050 ####[facility] [address] [place], [address] Erythrocyte distribution width (RBC) [Ratio] 12.4 % Normal 11.6-14.6 [facility] Comment on above: Performed By: #### L 100.0100, L500.4050 ####[facility] [address] [place], [address] Hematocrit (Bld) [Volume fraction] 44.5 % Normal 37-47 [facility] Comment on above: Performed By: #### L 100.0100, L500.4050 ####[facility] [address] [place], [address] Hemoglobin (Bld) [Mass/Vol] 14.7 g/dL Normal 12.0-15.0 [facility] Comment on above: Performed By: #### L 100.0100, L500.4050 ####[facility] [address] [place], [address] IG% 0.300 Normal 0.0-0.9 [facility] Comment on above: Result Comment: IG% - Immature Granulocytes (promyelocytes, myelocytes and metamyelocytes) > 1% indicates that a LEFT SHIFT is Present. Performed By: #### L 100.0100, L500.4050 ####[facility] [address] [place], [address] Lymphocytes/100 WBC (Bld) 19.3 % Normal 19-41 [facility] Comment on above: Performed By: #### L 100.0100, L500.4050 ####[facility] [address] [place], [address] MCH (RBC) [Entitic mass] 30.8 pg Normal 27.0-32.0 [facility] Comment on above: Performed By: #### L 100.0100, L500.4050 ####[facility] [address] [place], [address] MCHC (RBC) [Mass/Vol] 33.0 g/dL Normal 32-36 [facility] Comment on above: Performed By: #### L 100.0100, L500.4050 ####[facility] [address] [place], [address] MCV (RBC) [Entitic vol] 93.1 fL Normal 81-99 [facility] Comment on above: Performed By: #### L 100.0100, L500.4050 ####[facility] [address] [place], [address] Monocytes/100 WBC (Bld) 6.3 % Normal 0-10 [facility] Comment on above: Performed By: #### L 100.0100, L500.4050 ####[facility] [address] [place], [address] Neutrophils/100 WBC (Bld) 70.4 % High 47-70 [facility] Comment on above: Performed By: #### L 100.0100, L500.4050 ####[facility] [address] [place], [address] Nucleated RBC (Bld) [#/Vol] 0 10*3/uL Normal 0-5 [facility] Comment on above: Performed By: #### L 100.0100, L500.4050 ####[facility] [address] [place], [address] Platelet mean volume (Bld) [Entitic vol] 9.3 fL Normal 6.2-12.0 [facility] Comment on above: Performed By: #### L 100.0100, L500.4050 ####[facility] [address] [place], [address] Platelets (Bld) [#/Vol] 303 10*3/uL Normal 150-450 [facility] Comment on above: Performed By: #### L 100.0100, L500.4050 ####[facility] [address] [place], [address] RBC (Bld) [#/Vol] 4.78 10*6/uL Normal 4.2-5.4 [facility] Comment on above: Performed By: #### L 100.0100, L500.4050 ####[facility] [address] [place], [address] RDW SD 42.9 fl Normal 35.1-43.9 [facility] Comment on above: Performed By: #### L 100.0100, L500.4050 ####[facility] [address] [place], [address] WBC (Bld) [#/Vol] 6.8 10*3/uL Normal 4.4-11.0 [facility] Comment on above: Performed By: #### L 100.0100, L500.4050 ####[facility] [address] [place], [address] Carbon dioxide measurementOr dered By: Verónica Lopez on 09-21-2024 CO2 [Moles/Vol] 28.0 mmol/L 21.0-32.0 [facility] Chloride measurementOrdered By: Verónica Lopez on 09-21-2024 Chloride [Moles/Vol] 106 mmol/L 98-107 [facility] Comprehensive Metabolic Prof ilon 09-21-2024 Albumin [Mass/Vol] 3.9 g/dL Normal 3.2-5.0 [facility] Comment on above: Performed By: #### L 100.0100, L500.4050 ####[facility] [address] [place], [address] Albumin/Globulin [Mass ratio] 1.3 {ratio} Normal 0.9-2.4 [facility] Comment on above: Performed By: #### L 100.0100, L500.4050 ####[facility] [address] [place], [address] ALK P 152 U/L High 45-117 [facility] Comment on above: Performed By: #### L 100.0100, L500.4050 ####[facility] [address] [place], [address] ALT [Catalytic activity/Vol] 23 U/L Normal 13-56 [facility] Comment on above: Performed By: #### L 100.0100, L500.4050 ####[facility] [address] [place], [address] AST [Catalytic activity/Vol] 13 U/L Low 15-37 [facility] Comment on above: Performed By: #### L 100.0100, L500.4050 ####[facility] [address] [place], [address] Bilirubin [Mass/Vol] 0.60 mg/dL Normal 0.20-1.00 [facility] Comment on above: Result Comment: For patients on eltrombopag therapy, use of Dimension Morenci TBIL is not recommended. Performed By: #### L 100.0100, L500.4050 ####[facility] [address] [place], [address] BUN/CRE 16.4 RATIO Normal 10-20 [facility] Comment on above: Performed By: #### L 100.0100, L500.4050 ####[facility] [address] [place], [address] CA,Total 9.4 mg/dL Normal 8.5-10.1 [facility] Comment on above: Performed By: #### L 100.0100, L500.4050 ####[facility] [address] [place], [address] Chloride [Moles/Vol] 106 mmol/L Normal 98-107 [facility] Comment on above: Performed By: #### L 100.0100, L500.4050 ####[facility] [address] [place], [address] CO2 [Moles/Vol] 28.0 mmol/L Normal 21.0-32.0 [facility] Comment on above: Performed By: #### L 100.0100, L500.4050 ####[facility] [address] [place], [address] Creatinine [Mass/Vol] 0.91 mg/dL Normal 0.55-1.02 [facility] Comment on above: Result Comment: The validity of the calculated GFR GFRAA in patients over 70 years has not been determined. Clinical correlation is essential. Performed By: #### L 100.0100, L500.4050 ####[facility] [address] [place], [address] ECRCL 58.26 ml/min Normal [facility] Comment on above: Performed By: #### L 100.0100, L500.4050 ####[facility] [address] [place], [address] EST GFR - AA 78 mL/min Normal >60 [facility] Comment on above: Result Comment: Afri can Dominican GFR Calc Performed By: #### L 100.0100, L500.4050 ####[facility] [address] [place], [address] GAP 6 Normal 5-15 [facility] Comment on above: Performed By: #### L 100.0100, L500.4050 ####[facility] [address] [place], [address] GFR/1.73 sq M.predicted among non-blacks MDRD (S/P/Bld) [Vol rate/Area] 65 mL/min/{1.73_m2} Normal >60 [facility] Comment on above: Result Comment: Non- GFR Calc Performed By: #### L 100.0100, L500.4050 ####[facility] [address] [place], [address] Globulin (S) [Mass/Vol] 3.1 g/dL Normal 2.2-4.2 [facility] Comment on above: Performed By: #### L 100.0100, L500.4050 ####[facility] [address] [place], [address] Glucose [Mass/Vol] 65 mg/dL Low 74-106 [facility] Comment on above: Performed By: #### L 100.0100, L500.4050 ####[facility] [address] [place], [address] Potassium [Moles/Vol] 3.4 mmol/L Low 3.5-5.1 [facility] Comment on above: Performed By: #### L 100.0100, L500.4050 ####[facility] [address] [place], [address] Sodium [Moles/Vol] 140 mmol/L Normal 136-145 [facility] Comment on above: Performed By: #### L 100.0100, L500.4050 ####[facility] [address] [place], [address] T PROT 7.0 g/dL Normal 6.4-8.2 [facility] Comment on above: Performed By: #### L 100.0100, L500.4050 ####[facility] [address] [place], [address] Urea nitrogen [Mass/Vol] 15 mg/dL Normal 7-18 [facility] Comment on above: Performed By: #### L 100.0100, L500.4050 ####[facility] [address] [place], [address] Eosinophil percentageOrdered By: Verónica Lopez on 09-21-2024 Eosinophils/100 WBC (Bld) 2.8 % 0-5 [facility] Erythrocyte distribution wid th ratioOrdered By: Verónica John on 09-21-2024 Erythrocyte distribution width (RBC) [Ratio] 12.4 % 11.6-14.6 [facility] Erythrocyte distribution wid th standard deviationOrdered By: Verónica John on 09-21-2024 Erythrocyte distribution width (RBC) [Entitic vol] 42.9 fL 35.1-43.9 [facility] Estimated glomerular filtrat ion rate (GFR) AmericanOrdered By: Verónica Lopez on 09-21-2024 Estimated GFR (MDRD) Amer 78 mL/min >60 [facility] Comment on above: GFR Calc Estimation of creatinine marielena aranceOrdered By: Verónica Lopez on 09-21-2024 Estimated Creatinine Clearance Calc 58.26 ml/min [facility] Glomerular filtration rate ( GFR) estimationOrdered By: Verónica Lopez on 09-21-2024 Estimated GFR (MDRD) Non-Af Amer 65 mL/min >60 [facility] Comment on above: Non- GFR Calc Glucose measurementOrdered B y: Verónica Lopez on 09-21-2024 Glucose [Mass/Vol] 65 mg/dL Low 74-106 [facility] Hematocrit Auto (Bld) [Volum e fraction]Ordered By: Verónica Lopez on 09-21-2024 Hematocrit (Bld) [Volume fraction] 44.5 % 37-47 [facility] Hemoglobin measurementOrdere d By: Verónica Lopez on 09-21-2024 Hemoglobin (Bld) [Mass/Vol] 14.7 g/dL 12.0-15.0 [facility] Immature granulocytes/100 WB C Auto (Bld)Ordered By: Verónica Lopez on 09-21-2024 Immature granulocytes/100 WBC (Bld) 0.300 % 0.0-0.9 [facility] Comment on above: IG% - Immature Granu locytes (promyelocytes, myelocytes and metamyelocytes) > 1% indicates that a LEFT SHIFT is Present. Laboratory - Chemistry and C hemistry - challengeOrdered By: Verónica Lopez on 09-21-2024 AST [Catalytic activity/Vol] 13 U/L Low 15-37 [facility] Lymphocytes Auto (Unsp spec) [#/Vol]Ordered By: Verónica Lopez on 09-21-2024 Lymphocytes (Bld) [#/Vol] 1.32 10*3/uL 0.83-4.51 [facility] Lymphocytes/100 WBC Auto (Un sp spec)Ordered By: Verónica Lopez on 09-21-2024 Lymphocytes/100 WBC (Bld) 19.3 % 19-41 [facility] MCV (mean corpuscular volume ) determinationOrdered By: Verónica Lopez on 09-21-2024 MCV (RBC) [Entitic vol] 93.1 fL 81-99 [facility] Mean corpuscular hemoglobin (MCH) determinationOrdered By: Verónica Lopez on 09-21-2024 MCH (RBC) [Entitic mass] 30.8 pg 27.0-32.0 [facility] Mean corpuscular hemoglobin concentration (MCHC) determinationOrdered By: Verónica Lopez on 09-21-2024 MCHC (RBC) [Mass/Vol] 33.0 g/dL 32-36 [facility] Mean platelet volume determi nationOrdered By: Verónica Lopez on 09-21-2024 Platelet mean volume (Bld) [Entitic vol] 9.3 fL 6.2-12.0 [facility] Monocyte percentageOrdered B y: Verónica Lopez on 09-21-2024 Monocytes/100 WBC (Bld) 6.3 % 0-10 [facility] Neutrophil percentageOrdered By: Verónica Lopez on 09-21-2024 Neutrophils/100 WBC (Bld) 70.4 % High 47-70 [facility] Nucleated red blood cell per centageOrdered By: Verónica Lopez on 09-21-2024 Nucleated RBC/100 WBC (Bld) [Ratio] 0 % 0-5 [facility] Oncology Visit Reporton 02 Oncology Visit Report [facility] [place] [facility] [address] [place] [address] OFFICE VISIT Date of Service: 09/21/24 1029 MR#: [id number] Acct: [id number] Name: BO JACOB Rep #: [id number] : 1955 From: Verónica CohenC Age/Sex: 68/F Location: [facility] Status: Signed HPI Subjective Date of Service 09/21/24 Chief Complaint h/o breast cancer on endocrine therapy History of Present Illness Patient presented at age 68-year-old with stage IA (T1c, N0, M0) G3, ER positive, IA positive, 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 After skipping 2019 screening mammographies she felt a painless lump in the right breast and a diagnostic mammogram followed by a biopsy confirmed malignancy. April 28, 2020 she underwent a partial mastectomy with sentinel lymph node biopsy. Her work-up and surgery were done at [facility], she was then seen by medical oncology at [facility] with the recommendation of an adjuvant course of chemo immune therapy (ACTH/TCH) . She then went for a second opinion at [facility] were adjuvant chemoradiotherapy (TH) again recommended. She eventually made the decision to receive her treatment at [facility] close to home. CT chest June [...] she ever experienced. She was seen in [facility] emergency room and plain x-rays of the [...] 2: Benig (more content not included)... Normal [facility] Platelet countOrdered By: Alexx Lopez on 09-21-2024 Platelets (Bld) [#/Vol] 303 10*3/uL 150-450 [facility] Potassium measurementOrdered By: Verónica Lopez on 09-21-2024 Potassium [Moles/Vol] 3.4 mmol/L Low 3.5-5.1 [facility] RBC Auto (Bld) [#/Vol]Ordere d By: Verónica Lopez on 09-21-2024 RBC (Bld) [#/Vol] 4.78 10*6/uL 4.2-5.4 [facility] Serum anion gap measurementO rdered By: Verónica Lopez on 09-21-2024 Anion gap [Moles/Vol] 6 mmol/L 5-15 [facility] Serum globulin measurementOr dered By: Verónica Lopez on 09-21-2024 Globulin (S) [Mass/Vol] 3.1 g/dL 2.2-4.2 [facility] Serum or plasma alanine torres otransferase (ALT) measurementOrdered By: Verónica Lopez on 09-21-2024 ALT [Catalytic activity/Vol] 23 U/L 13-56 [facility] Serum or plasma albumin giovany urement (mass/volume)Ordered By: Verónica Lopez on 09-21-2024 Albumin [Mass/Vol] 3.9 g/dL 3.2-5.0 [facility] Serum or plasma alkaline semaj sphatase measurementOrdered By: Verónica Lopez on 09-21-2024 ALP [Catalytic activity/Vol] 152 U/L High 45-117 [facility] Serum or plasma bone alkalin e phosphatase/total alkaline phosphatase ratio (catalyticOrdered By: Verónica Lopez on 09-21-2024 ALP Bone [Catalytic fraction] 49 % 14-68 [facility] Serum or plasma calcium giovany urement (mass/volume)Ordered By: Verónica Lopez on 09-21-2024 Calcium [Mass/Vol] 9.4 mg/dL 8.5-10.1 [facility] Serum or plasma creatinine m easurement (mass/volume)Ordered By: Verónica Lopez on 09-21-2024 Creatinine [Mass/Vol] 0.91 mg/dL 0.55-1.02 [facility] Comment on above: The validity of the calculated GFR & GFRAA in patients over 70 years has not been determined. Clinical correlation is essential. Serum or plasma intestinal a lkaline phosphatase/total alkaline phosphatase ratio (catOrdered By: Verónica Lopez on 09-21-2024 ALP Intest [Catalytic fraction] 8 % 0-18 [facility] Comment on above: Performed at: [address] [id number] Director: Aj Lopez PhD, Phone: [phone] Serum or plasma liver alkali ne phosphatase/total alkaline phosphatase ratio (catalytiOrdered By: Verónica Lopez on 09-21-2024 ALP Liver [Catalytic fraction] 43 % 18-85 [facility] Serum or plasma urea nitroge n measurement (mass/volume)Ordered By: Verónica Lopez on 09-21-2024 Urea nitrogen [Mass/Vol] 15 mg/dL 7-18 [facility] Sodium levelOrdered By: Verónica Lopez on 09-21-2024 Sodium [Moles/Vol] 140 mmol/L 136-145 [facility] Total proteinOrdered By: Erica Lopez on 09-21-2024 Protein [Mass/Vol] 7.0 g/dL 6.4-8.2 [facility] White blood cell (WBC) count Ordered By: Verónica Lopez on 09-21-2024 WBC (Bld) [#/Vol] 6.8 10*3/uL 4.4-11.0 [facility] ACTIVATED CLOTTING TIME, POC (AK,MH,MR)on 09-10-2024 Activated Clotting Time (POCT) 262 Abnormal [facility] Interpretation and review of laboratory results Abnormal [facility] Meter ID:[id number] Location:[facility] [employer], [address] [place] [address], [id number] [place] [address] POINT OF CARE [facility] ALLIED HEALTHon 09-10-2024 [facility] HEALTH Normal [facility] ECHOon 09-10-2024 CONCLUSIONS: - Technically difficult exam [...] [facility] Echocardiography Report: Transthoracic Echo [facility] Date of service: 09/10/2024 1:27:26 PM [facility] Ordering physician: VANDANA GOLDSTEIN Indication: Re-evaluation [...] ECHOon 09-10-2024 LV Ejection Fraction 63 % [facility] Comment on above: (2D biplane) EF > 54 An LV Ejection Fraction of > 50% is normal No Panel Informationon 09-10 [facility] OPERATIVE NOon 09-10-2024 OPERATIVE NO Normal [facility] XR CHEST 1V FRONTAL PORTon 0 09-10-2024 XR CHEST 1V FRONTAL PORT Normal [facility] XR Chest Single viewon 09-10 IMPRESSION: No acute process. Emergency Specialist: RODO Transcribe Date/Time: Sep 10 2024 1:25P Dictated by : KATLIN RAHMAN MD This examination was interpreted and the report reviewed and electronically signed by: KATLIN RAHMAN MD on Sep 10 2024 1:27PM EST [facility] * * *Final Report* * [...] Cardiomediastinal silhouette: Stable cardiomediastinal silhouette. Other: . [employer] RADIOLOGY SYNGO Provider, [facility] - 09/10/2024 * * *Final Report* [...] Other: . IMPRESSION IMPRESSION: No acute process. Emergency Specialist: RODO Transcribe Date/Time: Sep 10 2024 1:25P Dictated by : KATLIN RAHMAN MD This examination was interpreted and the report reviewed and electronically signed by: KATILN RAHMAN MD on Sep 10 2024 1:27PM EST [facility] Radiology Study observation (narrative) [facility] XR Chest Single viewOrdered By: Ccf Provider on 09-10-2024 [facility] Basic metabolic 2000 panelon 09-08-2024 Anion gap [Moles/Vol] 11 mmol/L Normal 8-15 [facility] Comment on above: Order Comment: Speci men Type: BLOOD SPECIMENOrdering Facility: [facility] Address: [address] [place] [address] Performed By: #### 2 4321-2 ####[facility] LABCLIA [id number] [place] [address] [place] Calcium [Mass/Vol] 10.2 mg/dL Normal 8.5-10.2 [facility] Comment on above: Order Comment: Speci men Type: BLOOD SPECIMENOrdering Facility: [facility] Address: [address] [place] [address] Performed By: #### 2 4321-2 ####[facility] LABCLIA [id number] [place] [address] [place] Chloride [Moles/Vol] 100 mmol/L Normal 98-107 [facility] Comment on above: Order Comment: Speci men Type: BLOOD SPECIMENOrdering Facility: [facility] Address: [address] [place] [address] Performed By: #### 2 4321-2 ####[facility] LABCLIA [id number] [place] [address] [place] CO2 [Moles/Vol] 29 mmol/L Normal 22-30 [facility] Comment on above: Order Comment: Speci men Type: BLOOD SPECIMENOrdering Facility: [facility] Address: [address] [place] [address] Performed By: #### 2 4321-2 ####[facility] LABCLIA [id number] [place] [address] [place] Creatinine [Mass/Vol] 0.95 mg/dL Normal 0.58-0.96 [facility] Comment on above: Order Comment: Prince omer Type: BLOOD SPECIMENOrdering Facility: [facility] Address: [address] [place] [address] Performed By: #### 2 4321-2 ####[facility] LABIA [id number] [place] [address] [facility] Creatinine and Glomerular filtration rate.predicted panel (S/P/Bld) 65 mL/min/1.73m??? Normal >=60 [facility] Comment on above: Order Comment: Prince omer Type: BLOOD SPECIMENOrdering Facility: [facility] Address: [address] [place] [address] Result Comment: Conchita mated Glomerular Filtration Rate [...] actual GFR. Performed By: #### 2 4321-2 ####[facility] LABIA [id number] [place] [address] [place] Glucose [Mass/Vol] 88 mg/dL Normal 74-99 [facility] Comment on above: Order Comment: Prince omer Type: BLOOD SPECIMENOrdering Facility: [facility] Address: [address] [place] [address] Result Comment: The [place] Diabetes Association (ADA) provides guidance for cutoff [...] Standards of Medical Care in Diabetes 2016, [place] Diabetes Association. Diabetes Care. 2016.39(Suppl 1). Performed By: #### 2 4321-2 ####[facility]rsI LABCLIA [id number] [place] [address] [place] Potassium [Moles/Vol] 4.6 mmol/L Normal 3.7-5.1 [facility] Comment on above: Order Comment: Prince omer Type: BLOOD SPECIMENOrdering Facility: [facility] Address: [address] [place] [address] Performed By: #### 2 4321-2 ####[facility] [employer] LABCLIA [id number] [place] [address] [place] Sodium [Moles/Vol] 140 mmol/L Normal 136-144 [facility] Comment on above: Order Comment: Prince omer Type: BLOOD SPECIMENOrdering Facility: [facility] Address: [address] [place] [address] Performed By: #### 2 4321-2 ####[facility] LABCLIA [id number] [place] [address] [place] Urea nitrogen [Mass/Vol] 24 mg/dL High - [facility] Comment on above: Order Comment: Prince omer Type: BLOOD SPECIMENOrdering Facility: [facility] Address: [address] [place] [address] Performed By: #### 2 4321-2 ####[facility] LABCLIA [id number] [place] [address] [place] CBC panel Auto (Bld)on 09-08 Erythrocyte distribution width (RBC) [Ratio] 12.1 % Normal 11.5-15.0 [facility] Comment on above: Order Comment: Prince omer Type: BLOOD SPECIMENOrdering Facility: [facility] Address: [address] [place] [address] Performed By: #### 5 8410-2 ####[facility] LABCLIA [id number] [facility] [place] [address] [place] [facility] Hematocrit (Bld) [Volume fraction] 49.7 % High 36.0-46.0 [facility] Comment on above: Order Comment: Speci men Type: BLOOD SPECIMENOrdering Facility: [facility] Address: [address] [place] [address] Performed By: #### 5 8410-2 ####[facility] LABCLIA [id number] [facility] [place] [address] [facility] Hemoglobin (Bld) [Mass/Vol] 16.2 g/dL High 11.5-15.5 [facility] Comment on above: Order Comment: Speci men Type: BLOOD SPECIMENOrdering Facility: [facility] Address: [address] [place] [address] Performed By: #### 5 8410-2 ####[facility] LABCLIA [id number] [facility] [place] [address] [place] MCH (RBC) [Entitic mass] 30.6 pg Normal 26.0-34.0 [facility] Comment on above: Order Comment: Speci men Type: BLOOD SPECIMENOrdering Facility: [facility] Address: [address] [place] [address] Performed By: #### 5 8410-2 ####[facility] LABCLIA [id number] [facility] [place] [address] [place] MCHC (RBC) [Mass/Vol] 32.6 g/dL Normal 30.5-36.0 [facility] Comment on above: Order Comment: Speci men Type: BLOOD SPECIMENOrdering Facility: [facility] Address: [address] [place] [address] Performed By: #### 5 8410-2 ####[facility] LABCLIA [id number] [facility] [place] [address] [place] MCV (RBC) [Entitic vol] 93.8 fL Normal 80.0-100.0 [facility] Comment on above: Order Comment: Speci men Type: BLOOD SPECIMENOrdering Facility: [facility] Address: [address] [place] [address] Performed By: #### 5 8410-2 ####[facility] LABCLIA [id number] [facility] [address] [place] Platelet mean volume (Bld) [Entitic vol] 9.5 fL Normal 9.0-12.7 [facility] Comment on above: Order Comment: Speci men Type: BLOOD SPECIMENOrdering Facility: [facility] Address: [address] [place] [address] Performed By: #### 5 8410-2 ####[facility] LABCLIA [id number] [facility] [place] [address] [place] Platelets (Bld) [#/Vol] 323 10*3/uL Normal 150-400 [facility] Comment on above: Order Comment: Speci men Type: BLOOD SPECIMENOrdering Facility: [facility] Address: [address] [place] [address] Performed By: #### 5 8410-2 ####[facility] LABCLIA [id number] [facility] [place] [address] [place] RBC (Bld) [#/Vol] 5.30 10*6/uL High 3.90-5.20 [facility] Comment on above: Order Comment: Speci men Type: BLOOD SPECIMENOrdering Facility: [facility] Address: [address] [place] [address] Performed By: #### 5 8410-2 ####[facility] LABCLIA [id number] [facility] [place] [address] [place] WBC (Bld) [#/Vol] 8.14 10*3/uL Normal 3.70-11.00 [facility] Comment on above: Order Comment: Speci men Type: BLOOD SPECIMENOrdering Facility: [facility] Address: [address] [place] [address] Performed By: #### 5 8410-2 ####[facility] LABCLIA [id number] [place] [address] [facility] Knee 4 or More Viewson 08-31 Knee 4 or More Views [facility] [address] [place] [address] Knee 4 or More Views MR#: [id number] Acct: [id number] Name: BO JACOB Rep #: [id number] : 1955 F 68 From: Hugh Hicks MD PCP: KEYA Reaves Status: DEP AMB Study: Knee 4 or More Views Date of Exam: 08/31/24 Exam# [id number] Ordering Dr: Raymnod Lagos DO [id number] STUDY: X-RAY - LEFT KNEE REASON FOR [...] 14:00 EST Reading Location ID and State: [facility] / [place] , Service support , CC: KYEA Dias; Dr. Raymond Lagos DO Emergency Specialist: Signed Normal [facility] Orthopedic Visit Reporton Orthopedic Visit Report [facility] [address] [place] [address] OFFICE VISIT Date of Service: 08/31/24 MR#: [id number] Acct: [id number] Name: BO JACOB Rep #: [id number] : 1955 Provider: Dr. Raymond jaimes DO Age/Sex: 68/F Location: [facility] Status: Signed Intake Vital Signs 06/17/24 15:54 08/31/24 09:07 Height 5 ft 1 in 5 ft 1 in Weight: 177 lb 6 oz BMI 33.5 Intake Visit Reasons: LEFT KNEE Chief Complaint: Left Knee Pain Accompanied by: Self Is patient in pain?: Yes Pain scale (1-10): 2 Allergies acetaminophen (From [place]) Allergy (Intermediate, Verified 08/31/24 09:08) Rash adhesive tape Allergy (Intermediate, Verified 08/31/24 09:08) Hives hydrocodone (From [place]) Allergy (Intermediate, Verified 08/31/24 09:08) Rash oxycodone [...] 1-2 times per week duration: 15-30 minutes/day frankie/buddhist: Non-Nondenominational/Independ ent seatbelt use: always do you feel [...] medial part (more content not included)... Normal [facility] 08-17-2024 CNPN Normal [facility] ANES POSTPROC EVALon 024 ANES POSTPROC EVAL Normal [facility] ANES PRE-OPon 08-05-2024 ANES PRE-OP Normal [facility] BRIEF OP NOTon 08-05-2024 BRIEF OP NOT Normal [facility] ECHO TRANSESOPHAGEALon 08-05 ECHO TRANSESOPHAGEAL Normal [facility] 07-28-2024 CNPN Normal [facility] CNOVon 07-27-2024 CNOV Normal [facility] 07-22-2024 CNPN Normal [facility] BRIEF OP NOTon 07-20-2024 BRIEF OP NOT Normal [facility] 07-08-2024 CNPN Normal [facility] Surgery Visit Reporton 07-03 Surgery Visit Report [facility] [address] [place] [address] OFFICE VISIT Date of Service: 07/03/24 MR#: [id number] Acct: [id number] Name: BO JACOB Rep #: [id number] : 1955 Provider: Dr. Dia shepherd MD Age/Sex: 68/F Location: [facility] Status: Signed Intake Vital Signs 06/17/24 15:54 [...] patient in pain?: No Allergies acetaminophen (From [place]) Allergy (Intermediate, Verified 07/03/24 14:22) Rash adhesive tape Allergy (Intermediate, Verified 07/03/24 14:22) Hives hydrocodone (From [place]) Allergy (Intermediate, Verified 07/03/24 14:22) Rash oxycodone [...] vis,est,level 3 Diagnoses Left breast lump N63.20 [facility] Medical History PFO (patent foramen ovale) Wears [...] cyst Previous section Family History ... Normal [facility] CNPNon 06-30-2024 CNPN Normal [facility] CNPNon 06-26-2024 CNPN Normal [facility] CNOVon 06-24-2024 CNOV Normal [facility] Breast Limited Unilateralon 06-19-2024 Breast Limited Unilateral [facility] [address] [place] [address] Breast Limited Unilateral MR#: [id number] Acct: [id number] Name: BO JACOB Rep #: [id number] : 1955 F 68 From: Cahndu avery MD PCP: KEYA Reaves Status: [facility] Study: Breast Limited Unilateral Date of Exam: Exam# [id number] Ordering Dr: Verónica Lopez NP SENIOR QUALITY ASSURANCE ENGINEER -C [id number] STUDY: ULTRASOUND BREAST - LEFT REASON FOR [...] 13:04 EDT Reading Location ID and State: [facility] / [place] , Service support , CC: KEYA Dias; KEYA Lopez Emergency Specialist: Signed Normal [facility] DIAG MAMM W/CAD, UNILATon DIAG MAMM W/CAD, [facility] Imaging Services [address] [place], [place] [address] DIAG MAMM W/CAD, UNILAT MR#: [id number] Acct: [id number] Name: BO JACOB Rep #: [id number] : 1955 F 68 From: Chandu avery MD PCP: KEYA Reaves Status: REG CL Study: DIAG MAMM W/CAD, UNILAT Date of Exam: 06/19/24 Exam# [id number] Ordering Dr: Verónica Lopez NP, NP [id number] MAMMOGRAPHY - UNILATERAL DIAGNOSTIC: LEFT BREAST REASON [...] 10:15 EDT Reading Location ID and State: [facility] / [place] , Service support , CC: KEYA Dias; KEYA Lopez Emergency Specialist: Signed Normal [facility] Oncology Visit Reporton 05-21 Oncology Visit Report [facility] [address] 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 After skipping 2019 screening mammographies she felt a painless lump in the right breast and a diagnostic mammogram followed by a biopsy confirmed malignancy. April 28, 2020 she underwent a partial mastectomy with sentinel lymph node biopsy. Her work-up and surgery were done at [facility], she was then seen by medical oncology at [facility] with the recommendation of an adjuvant course of chemo immune therapy (ACTH/TCH) . She then went for a second opinion at [facility] were adjuvant chemoradiotherapy (TH) again recommended. She eventually made the decision to receive her treatment at [facility] close to home. CT chest June [...] she ever experienced. She was seen in [facility] emergency room and plain x-rays of the [...] with COV (more content not included)... Normal [facility] CNPNon 06-10-2024 CNPN Normal [facility] CNOVon 06-09-2024 CNOV Normal [facility] Cardiology Visit Reporton Cardiology Visit Report [facility] [address] [place] [address] OFFICE VISIT Date of Service: 05/08/24 MR#: [id number] Acct: [id number] Name: BO JACOB Rep #: [id number] : 1955 Provider: KIRILL Turcios Age/Sex: 68/F Location: [facility] Status: Signed [facility] History of Present Illness Details: Gisselle Jacob [...] acute ischemic stroke. She was admitted to [facility] with left-sided weakness and was found to [...] she has an appointment with neurology at [facility]. She also tells me that she has [...] Oximetry (%) 98 Intake Visit Reasons: S/P [facility] 04/23 Telecommunicator Required: No Is patient in pain?: No Allergies acetaminophen (From [place]) Allergy (Intermediate, Verified 05/08/24 09:44) Rash adhesive tape Allergy (Intermediate, Verified 05/08/24 09:44) Hives hydrocodone (From [place]) Allergy (Intermediate, Verified 05/08/24 09:44) Rash oxycodone [...] of ect (more content not included)... Normal [facility] CNPNon 04-29-2024 CNPN Normal [facility] Basic metabolic 2000 panelon 04-23-2024 Anion gap [Moles/Vol] 9 mmol/L Normal 8-15 [facility] Comment on above: Order Comment: Speci men Type: BLOOD SPECIMENOrdering Facility: [facility] Address: [address] [place] [address] Performed By: #### 2 4320-09, ####[facility] LABORATORYCLIA [id number] [place] [address] [place] Calcium [Mass/Vol] 9.5 mg/dL Normal 8.5-10.2 [facility] Comment on above: Order Comment: Speci men Type: BLOOD SPECIMENOrdering Facility: [facility] Address: [address] [place] [address] Performed By: #### 2 4320-09, ####[facility] LABORATORYCLIA [id number] [place] [address] [place] Chloride [Moles/Vol] 104 mmol/L Normal 98-107 [facility] Comment on above: Order Comment: Speci men Type: BLOOD SPECIMENOrdering Facility: [facility] Address: [address] [place] [address] Performed By: #### 2 4320-09, ####[facility] LABORATORYCLIA [id number] [address] STATES OF [facility] CO2 [Moles/Vol] 25 mmol/L Normal 22-30 [facility] Comment on above: Order Comment: Speci men Type: BLOOD SPECIMENOrdering Facility: [facility] Address: [address] [place] [address] Performed By: #### 2 4321-2, ####[facility] LABORATORYCLIA [id number] [address] STATES OF [facility] Creatinine [Mass/Vol] 0.87 mg/dL Normal 0.58-0.96 [facility] Comment on above: Order Comment: Speci men Type: BLOOD SPECIMENOrdering Facility: [facility] Address: [address] [place] [address] Performed By: #### 2 4321-2, ####[facility] LABORATORYCLIA [id number] Creatinine and Glomerular filtration rate.predicted panel (S/P/Bld) 72 mL/min/1.73m??? Normal >=60 [facility] Comment on above: Order Comment: Speci men Type: BLOOD SPECIMENOrdering Facility: [facility] Address: [address] [place] [address] Result Comment: Conchita mated Glomerular Filtration Rate [...] actual GFR. Performed By: #### 2 4321-2, ####[facility] LABORATORYCLIA [id number] [address] STATES OF [facility] Glucose [Mass/Vol] 91 mg/dL Normal 74-99 [facility] Comment on above: Order Comment: Speci men Type: BLOOD SPECIMENOrdering Facility: [facility] Address: [address] [place] [address] Result Comment: The [place] Diabetes Association (ADA) provides guidance for cutoff [...] Standards of Medical Care in Diabetes 2016, [place] Diabetes Association. Diabetes Care. 2016.39(Suppl 1). Performed By: #### 2 4320-09, ####[facility] LABORATORYCLIA [id number] [place] [address] [place] Potassium [Moles/Vol] Normal [facility] Comment on above: Order Comment: Prince omer Type: BLOOD SPECIMENOrdering Facility: [facility] Address: [address] [place] [address] Result Comment: Unab le to assay due to interference from hemolysis. Suggest reorder as clinically indicated. Performed By: #### 2 4320-09, ####[facility] LABORATORYCLIA [id number] [place] [address] [place] Sodium [Moles/Vol] 138 mmol/L Normal 136-144 [facility] Comment on above: Order Comment: Prince omer Type: BLOOD SPECIMENOrdering Facility: [facility] Address: [address] [place] [address] Performed By: #### 2 4320-09, ####[facility] LABORATORYCLIA [id number] [place] [address] [place] Urea nitrogen [Mass/Vol] 17 mg/dL Normal 7-21 [facility] Comment on above: Order Comment: Prince omer Type: BLOOD SPECIMENOrdering Facility: [facility] Address: [address] [place] [address] Performed By: #### 2 4320-09, ####[facility] LABORATORYCLIA [id number] [place] [address] [place] CARDIOLIPIN IGG ABSon 2023 Cardiolipin IgG IA Qn (S) <9.0 Normal <15.0 [facility] Comment on above: Order Comment: Speci men Type: BLOOD SPECIMENOrdering Facility: [facility] Address: [address] [place] [address] Result Comment: <15 GPL [id number] GPL Indeterminate>20 GPL PositiveThe following results were obtained with the [employer] QUANTA Lite BRIELLE IgG III JHONNY. Cardiolipin IgG values obtained with the different manufacturers' assay methods may not be used interchangeably. The magnitude of the reported IgG levels cannot be correlated to an endpoint titer. Performed By: #### 5 076-5MIKEY CARDIM ####[facility] LABCLIA [id number] [address] CARDIOLIPIN IGM ABSon 2023 Cardiolipin IgM IA Qn (S) <9.0 Normal <12.5 [facility] Comment on above: Order Comment: Speci [facility] Type: BLOOD SPECIMENOrdering Facility: [facility] Address: [address] [place] [address] Result Comment: <12. 5 MPL Ngvdfqni99.5-20 MPL Indeterminate>20 MPL PositiveThe following results were obtained with the [employer] QUANTA Lite BRIELLE IgM III JHONNY. Cardiolipin IgM values obtained with the different manufacturers' assay methods may not be used interchangeably. The magnitude of the reported IgM levels cannot be correlated to an endpoint titer.??? Performed By: #### 5 076-5MIKEY CARDIM ####[facility] LABCLIA [id number] [place] [address] [place] CASE MANAGEMon 04-23-2024 CASE MANAGEM Normal [facility] CBC panel Auto (Bld)on 04-23 Erythrocyte distribution width (RBC) [Ratio] 12.7 % Normal 11.5-15.0 [facility] Comment on above: Order Comment: Speci men Type: BLOOD SPECIMENOrdering Facility: [facility] Address: [address] [place] [address] Performed By: #### 5 8410-2 ####[facility] LABORATORYCLIA [id number] [address] Hematocrit (Bld) [Volume fraction] 46.1 % High 36.0-46.0 [facility] Comment on above: Order Comment: Speci men Type: BLOOD SPECIMENOrdering Facility: [facility] Address: [address] [place] [address] Performed By: #### 5 8410-2 ####[facility] LABORATORYCLIA [id number] OF [facility] Hemoglobin (Bld) [Mass/Vol] 15.6 g/dL High 11.5-15.5 [facility] Comment on above: Order Comment: Speci men Type: BLOOD SPECIMENOrdering Facility: [facility] Address: [address] [place] [address] Performed By: #### 5 8410-2 ####[facility] LABORATORYCLIA [id number] [address] STATES OF [facility] MCH (RBC) [Entitic mass] 31.7 pg Normal 26.0-34.0 [facility] Comment on above: Order Comment: Speci men Type: BLOOD SPECIMENOrdering Facility: [facility] Address: [address] [place] [address] Performed By: #### 5 8410-2 ####[facility] LABORATORYCLIA [id number] [address] [place] MCHC (RBC) [Mass/Vol] 33.8 g/dL Normal 30.5-36.0 [facility] Comment on above: Order Comment: Speci men Type: BLOOD SPECIMENOrdering Facility: [facility] Address: [address] [place] [address] Performed By: #### 5 8410-2 ####[facility] LABORATORYCLIA [id number] [place] [address] [place] MCV (RBC) [Entitic vol] 93.7 fL Normal 80.0-100.0 [facility] Comment on above: Order Comment: Speci men Type: BLOOD SPECIMENOrdering Facility: [facility] Address: [address] [place] [address] Performed By: #### 5 8410-2 ####[facility] LABORATORYCLIA [id number] [place] [address] [place] Nucleated RBC (Bld) [#/Vol] 10*3/uL Normal <0.01 [facility] Comment on above: Order Comment: Speci men Type: BLOOD SPECIMENOrdering Facility: [facility] Address: [address] [place] [address] Performed By: #### 5 8410-2 ####[facility] LABORATORYCLIA [id number] [address] [place] Platelet mean volume (Bld) [Entitic vol] 9.8 fL Normal 9.0-12.7 [facility] Comment on above: Order Comment: Speci men Type: BLOOD SPECIMENOrdering Facility: [facility] Address: [address] [place] [address] Performed By: #### 5 8410-2 ####[facility] LABORATORYCLIA [id number] [address] [place] Platelets (Bld) [#/Vol] 307 10*3/uL Normal 150-400 [facility] Comment on above: Order Comment: Speci men Type: BLOOD SPECIMENOrdering Facility: [facility] Address: [address] [place] [address] Performed By: #### 5 8410-2 ####[facility] LABORATORYCLIA [id number] [place] [address] [place] RBC (Bld) [#/Vol] 4.92 10*6/uL Normal 3.90-5.20 [facility] Comment on above: Order Comment: Speci men Type: BLOOD SPECIMENOrdering Facility: [facility] Address: [address] [place] [address] Performed By: #### 5 8410-2 ####[facility] LABORATORYCLIA [id number] [place] [address] [place] WBC (Bld) [#/Vol] 7.84 10*3/uL Normal 3.70-11.00 [facility] Comment on above: Order Comment: Speci men Type: BLOOD SPECIMENOrdering Facility: [facility] Address: [address] [place] [address] Performed By: #### 5 8410-2 ####[facility] LABORATORYCLIA [id number] [place] [id number] [place] CNDSon 04-23-2024 CNDS Normal [facility] COAG CORE PANEL BLDon 2023 aPTT Coag (PPP) [Time] 26.5 s Normal 23.0-32.4 [facility] Comment on above: Order Comment: Speci men Type: BLOOD SPECIMENOrdering Facility: [facility] Address: [address] [place] [address] Performed By: #### C ORPNL ####[facility] LABCLIA [id number] [place] [address] [place] Fibrinogen Coag (PPP) [Mass/Vol] 456 mg/dL High 200-400 [facility] Comment on above: Order Comment: Speci men Type: BLOOD SPECIMENOrdering Facility: [facility] Address: [address] [place] [address] Result Comment: Izzy en Plasma AliquotSample checked for clot.Result rechecked. Performed By: #### C ORPNL ####[facility] LABCLIA [id number] [place] [address] [place] INR Coag (PPP) [Relative time] 1.0 {INR} Normal 0.9-1.3 [facility] Comment on above: Order Comment: Speci men Type: BLOOD SPECIMENOrdering Facility: [facility] Address: [address] [place] [address] Result Comment: [place] min K Antagonist (VKA) Therapeutic Range: INR 2 to 3 (Target INR of 2.5)Note: For patients treated with VKA drugs, such as warfarin, the [place] [employer] 2012 Guideline recommends [...] al. Chest 2012, 141:7S-47SNishimura RA, et al. [facility] 2017, 70: 252-289 Performed By: #### C ORPNL ####[facility] LABCLIA [id number] [place] [address] [place] PT Coag (PPP) [Time] 10.4 s Normal 9.7-13.0 [facility] Comment on above: Order Comment: Speci men Type: BLOOD SPECIMENOrdering Facility: [facility] Address: [address] [place] [address] Performed By: #### C ORPNL ####[facility] LABIA [id number] [place] [address] [place] CRP SerPl-mCncon 04-23-2024 CRP [Mass/Vol] 0.3 mg/dL Normal <0.9 [facility] Comment on above: Order Comment: Speci men Type: BLOOD SPECIMENOrdering Facility: [facility] Address: [address] [place] [address] Performed By: #### 1 988-5 ####[facility] LABCLIA [id number] [place] [address] [place] Cardiolipin IgA Ser IA-aCnco n 04-23-2024 Cardiolipin IgA IA Qn (S) <9.0 Normal <12.0 [facility] Comment on above: Order Comment: Speci peter Type: BLOOD SPECIMENOrdering Facility: [facility] Address: [address] [place] [address] Result Comment: <12 APL Gwnnxyly28-80 APL Indeterminate>20 APL PositiveThe following results were obtained with the [employer] QUANTA Lite BRIELLE IgA III JHONNY. Cardiolipin IgA values obtained with the different manufacturers' assay methods may not be used interchangeably. The magnitude of the reported IgA levels cannot be correlated to an endpoint titer. Performed By: #### 5 076-5, SIENA JENSEN ####[facility] LABIA [id number] [address] OF [place] HYPERCOAG PANELon 04-23-2024 Activated protein C resistance Coag (PPP) [Time ratio] 2.37 Ratio Normal >1.96 [facility] Comment on above: Order Comment: Speci peter Type: BLOOD SPECIMENOrdering Facility: [facility] Address: [address] [place] [address] Result Comment: The specimen was treated with ANTI-XA neutralizing reagents to remove heparin, low molecular weight heparin, and DOAC activity from the plasma. Performed By: #### H COAG ####[facility] LABCLIA [id number] [place] ANTI XA HZ + DOAC <0.10 Normal <0.10 [facility] Comment on above: Order Comment: Speci [facility] Type: BLOOD SPECIMENOrdering Facility: [facility] Address: [address] [place] [address] Performed By: #### H COAG ####[facility] LABIA [id number] [place] [address] [place] Antithrombin actual/normal Chromogenic method (PPP) [Rel catalytic activity/Vol] 134 % Normal 84-138 [facility] Comment on above: Order Comment: Speci peter Type: BLOOD SPECIMENOrdering Facility: [facility] Address: [address] [place] [address] Performed By: #### H COAG ####[facility] LABSOUTHWEST[facility] [id number] [place] [address] [place] aPTT Coag (Bld) [Time] 26.6 s Normal 24.0-35.1 [facility] Comment on above: Order Comment: Speci men Type: BLOOD SPECIMENOrdering Facility: [facility] Address: [address] [place] [address] Performed By: #### H COAG ####[facility] [id number] [place] [address] [place] APTT SCRN HZ + DOAC 26.2 Normal 24.0-35.1 [facility] Comment on above: Order Comment: Speci men Type: BLOOD SPECIMENOrdering Facility: [facility] Address: [address] [place] [address] Performed By: #### H COAG ####[facility] [id number] [place] [address] [place] aPTT W excess hexagonal phase phospholipid Coag (PPP) [Time] 40.7 seconds Normal 34.0-51.8 [facility] Comment on above: Order Comment: Speci men Type: BLOOD SPECIMENOrdering Facility: [facility] Address: [address] [place] [address] Result Comment: The specimen was treated with ANTI-XA neutralizing reagents to remove heparin, low molecular weight heparin, and DOAC activity from the plasma. Performed By: #### H COAG ####[facility] [id number] [place] [address] [place] Coagulation factor VIII activity actual/normal Coag (PPP) [Relative time] 136 % Normal 50-173 [facility] Comment on above: Order Comment: Speci men Type: BLOOD SPECIMENOrdering Facility: [facility] Address: [address] [place] [address] Result Comment: The specimen was treated with ANTI-XA neutralizing reagents to remove heparin, low molecular weight heparin, and DOAC activity from the plasma. Performed By: #### H COAG ####[facility] [id number] [place] [address] [place] Coagulation factor X activated act Coag Qn (PPP) 0.10 High <0.10 [facility] Comment on above: Order Comment: Prince omer Type: BLOOD SPECIMENOrdering Facility: [facility] Address: [address] [place] [address] Result Comment: This test was developed and its performance characteristics determined by [facility]'s [facility] Pathology and Laboratory Medicine [place] ([facility]). It has not been cleared or approved by the FDA. -[facility] is regulated under CLIA as qualified to perform high-complexity testing. This test is used for clinical purposes. It should not be regarded as investigational or for research. Performed By: #### H COAG ####[facility] [id number] [place] [address] [place] Delta dRVVT Coag (PPP) [Time diff] 0.6 delta seconds Normal <7.1 [facility] Comment on above: Order Comment: Prince omer Type: BLOOD SPECIMENOrdering Facility: [facility] Address: [address] [place] [address] Result Comment: The specimen was treated with ANTI-XA neutralizing reagents to remove heparin, low molecular weight heparin, and DOAC activity from the plasma. Performed By: #### H COAG ####[facility] [id number] [place] [address] [place] dRVVT W excess hexagonal phase phospholipid actual/normal Coag (PPP) [Relative time] 40.0 seconds Normal 34.2-47.9 [facility] Comment on above: Order Comment: Prince omer Type: BLOOD SPECIMENOrdering Facility: [facility] Address: [address] [place] [address] Result Comment: The specimen was treated with ANTI-XA neutralizing reagents to remove heparin, low molecular weight heparin, and DOAC activity from the plasma. Performed By: #### H COAG ####[facility] [id number] [address] [place] Protein C actual/normal Coag (PPP) [Relative time] 132 % Normal 76-147 [facility] Comment on above: Order Comment: Speci men Type: BLOOD SPECIMENOrdering Facility: [facility] Address: [address] [place] [address] Performed By: #### H COAG ####[facility] [id number] [place] [address] [place] Protein S actual/normal Coag (PPP) [Relative time] 105 % Normal 59-152 [facility] Comment on above: Order Comment: Speci men Type: BLOOD SPECIMENOrdering Facility: [facility] Address: [address] [place] [address] Result Comment: The specimen was treated with ANTI-XA neutralizing reagents to remove heparin, low molecular weight heparin, and DOAC activity from the plasma. Performed By: #### H COAG ####[facility] [id number] [address] [place] Thrombin time Coag (PPP) [Time] <16.8 Normal <18.6 [facility] Comment on above: Order Comment: Speci men Type: BLOOD SPECIMENOrdering Facility: [facility] Address: [address] [place] [address] Performed By: #### H COAG ####[facility] [id number] [address] [place] THROMBIN TIME HZ + DOAC 19.4 High <18.6 [facility] Comment on above: Order Comment: Speci men Type: BLOOD SPECIMENOrdering Facility: [facility] Address: [address] [place] [address] Performed By: #### H COAG ####[facility] [id number] [address] [place] [address] [place] Magnesium SerPl-mCncon 04-23 Magnesium [Mass/Vol] 2.2 mg/dL Normal 1.7-2.3 [facility] Comment on above: Order Comment: Speci men Type: BLOOD SPECIMENOrdering Facility: [facility] Address: [address] [place] [address] Performed By: #### 2 4321-2, 42943-1 ####[facility] LABORATORYCLIA [id number] [place] [address] [place] NURSING PROGon 04-23-2024 NURSING PROG Normal [facility] PROTHROMBIN GENE PCRon 04-23 PROTHROMBIN GENE MUTATION Normal [facility] Comment on above: Order Comment: Speci men Type: BLOOD SPECIMENOrdering Facility: [facility] Address: [address] [place] [address] Result Comment: Prot hrombin Gene MutationLaboratory Accession Number: [id number]:NORMALInterpretation:The DNA sample is negative for the c.*97G>A variant (legacy ujwf61157N>A) in the 3' untranslated region of the Factor II (F2) gene.This result is not associated with an increased risk of thromboembolicdisease. Thromboembolic disease is a multifactorial disorder and othercauses are not excluded by this result.Methodology:Isolated Genomic DNA from the patient's blood specimen is evaluatedfor the c*97G>A (g.12790885) variant of the F2 gene [RefSeqNM_[id number];GRCh38/hg38] by multiplex polymerase chain reaction(PCR) followed by melting curve analysis.Limitations:This assay is designed to detect the c.*97G>A (71742E>A) variant inthe F2 gene. Uncommon variants or single nucleotide polymorphisms mayaffect binding of probes and may rarely result in false negative,false positive or indeterminate results. This assay does not detectother disease-associated rare variants in F2 or other causes ofthromboembolic disease.Disclaimer:This test was developed and its performance characteristics determinedby [facility]'s Paulo [facility]inth[facility] Pathology [facility] LaboratoryMedicine [place] ([facility]). It has not been cleared or approved bythe FDA. [facility] is regulated under CLIA as certified to perform high-complexity testing. This test is used for clinical purposes. It shouldnot be regarded as investigational or for research.Testing and interpretation performed at [facility], [address] [place] [address]. CLIA Number: [id number]:1) Inheritied Thrombophilias in . ACOG Practice Bulletin. No.197. [place] [employer]. ObseteGynecol 2018;132:e18-34.2) Garrett SR, Ivette FR, Anisha PH, and Rukhsana RICO. A commongenetic variation in the 3'-untranslated region of the prothrombingene is associated with elevated plasma prothrombin levels and anincrease in venous thrombosis. Blood 88:3698-703, 1995.3) Megan I, Ariel V, Marlon C, Debbie K. Bekivolomag06878R>T: 16 new cases, association with the 03385T>G polymorphism,and literature review. J Thromb Haemost. 2009;9:1585-7.As reviewed by Fawn Pritchett MD Performed By: #### P TGEN ####[facility] [id number] [place] [address] [place] Basic metabolic 2000 panelon 04-22-2024 Anion gap [Moles/Vol] 11 mmol/L Normal 8-15 [facility] Comment on above: Order Comment: Speci men Type: BLOOD SPECIMENOrdering Facility: [facility] Address: [address] [place] [address] Performed By: #### 2 4321-2, ####[facility] LABORATORYCLIA [id number] [place] [address] [place] Calcium [Mass/Vol] 8.8 mg/dL Normal 8.5-10.2 [facility] Comment on above: Order Comment: Speci men Type: BLOOD SPECIMENOrdering Facility: [facility] Address: [address] [place] [address] Performed By: #### 2 4322, ####[facility] LABORATORYCLIA [id number] [place], [place] [address] [place] [address] [place] Chloride [Moles/Vol] 107 mmol/L Normal 98-107 [facility] Comment on above: Order Comment: Speci men Type: BLOOD SPECIMENOrdering Facility: [facility] Address: [address] [place] [address] Performed By: #### 2 2, ####[facility] LABORATORYCLIA [id number] [place] [id number] [facility] CO2 [Moles/Vol] 22 mmol/L Normal 22-30 [facility] Comment on above: Order Comment: Speci men Type: BLOOD SPECIMENOrdering Facility: [facility] Address: [address] [place] [address] Performed By: #### 2 4320-09, ####[facility] LABORATORYCLIA [id number] [address] Creatinine [Mass/Vol] 0.80 mg/dL Normal 0.58-0.96 [facility] Comment on above: Order Comment: Speci men Type: BLOOD SPECIMENOrdering Facility: [facility] Address: [address] [place] [address] Performed By: #### 2 4320-09, ####[facility] LABORATORYCLIA [id number] [address] Creatinine and Glomerular filtration rate.predicted panel (S/P/Bld) 80 mL/min/1.73m??? Normal >=60 [facility] Comment on above: Order Comment: Speci men Type: BLOOD SPECIMENOrdering Facility: [facility] Address: [address] [place] [address] Result Comment: Conchita mated Glomerular Filtration Rate [...] actual GFR. Performed By: #### 2 43208-20, ####[facility] LABORATORYCLIA [id number] [place] [address] [place] Glucose [Mass/Vol] 84 mg/dL Normal 74-99 [facility] Comment on above: Order Comment: Speci men Type: BLOOD SPECIMENOrdering Facility: [facility] Address: [address] [place] [address] Result Comment: The [place] [employer] Association (ADA) provides guidance for cutoff [...] Standards of Medical Care in Diabetes 2016, [place] [employer]. Diabetes Care. 2016.39(Suppl 1). Performed By: #### 2 43208-20, ####[facility] LABORATORYCLIA [id number] [place] [address] [place] Potassium [Moles/Vol] 3.7 mmol/L Normal 3.7-5.1 [facility] Comment on above: Order Comment: Speci men Type: BLOOD SPECIMENOrdering Facility: [facility] Address: [address] [place] [address] Performed By: #### 2 43208-20, ####[facility] LABORATORYCLIA [id number] [place] [id number] [place] Sodium [Moles/Vol] 140 mmol/L Normal 136-144 [facility] Comment on above: Order Comment: Anthonyi men Type: BLOOD SPECIMENOrdering Facility: [facility] Address: [address] [place] [address] Performed By: #### 2 432-2, 64594-1 ####[facility] LABORATORYCLIA [id number] [place] [address] [place] Urea nitrogen [Mass/Vol] 17 mg/dL Normal 7-21 [facility] Comment on above: Order Comment: Speci men Type: BLOOD SPECIMENOrdering Facility: [facility] Address: [address] [place] [address] Performed By: #### 2 432-2, ####[facility] LABORATORYCLIA [id number] [place] [address] [place] CASE MANAGEMon 04-22-2024 CASE MANAGEM Normal [facility] CBC W Auto Differential pane l (Bld)on 04-22-2024 Basophils (Bld) [#/Vol] 0.05 10*3/uL Normal <0.11 [facility] Comment on above: Order Comment: Speci men Type: BLOOD SPECIMENOrdering Facility: [facility] Address: [address] [place] [address] Performed By: #### 5 7021-8 ####[facility] LABORATORYCLIA [id number] [address] [place] Basophils/100 WBC (Bld) 0.7 % Normal [facility] Comment on above: Order Comment: Speci men Type: BLOOD SPECIMENOrdering Facility: [facility] Address: [address] [place] [address] Performed By: #### 5 7021-8 ####[facility] LABORATORYCLIA [id number] [address] [place] Differential cell count method Nom (Bld) Auto Normal [facility] Comment on above: Order Comment: Speci men Type: BLOOD SPECIMENOrdering Facility: [facility] Address: [address] [place] [address] Performed By: #### 5 7021-8 ####[facility] LABORATORYCLIA [id number] [place] [address] [place] Eosinophils (Bld) [#/Vol] 0.26 10*3/uL Normal <0.46 [facility] Comment on above: Order Comment: Speci men Type: BLOOD SPECIMENOrdering Facility: [facility] Address: [address] [place] [address] Performed By: #### 5 7021-8 ####[facility] LABORATORYCLIA [id number] [address] [place] Eosinophils/100 WBC (Bld) 3.6 % Normal [facility] Comment on above: Order Comment: Speci men Type: BLOOD SPECIMENOrdering Facility: [facility] Address: [address] [place] [address] Performed By: #### 5 7021-8 ####[facility] LABORATORYCLIA [id number] [address] [place] Erythrocyte distribution width (RBC) [Ratio] 12.4 % Normal 11.5-15.0 [facility] Comment on above: Order Comment: Speci men Type: BLOOD SPECIMENOrdering Facility: [facility] Address: [address] [place] [address] Performed By: #### 5 7021-8 ####[facility] LABORATORYCLIA [id number] [address] [place] Hematocrit (Bld) [Volume fraction] 42.0 % Normal 36.0-46.0 [facility] Comment on above: Order Comment: Speci men Type: BLOOD SPECIMENOrdering Facility: [facility] Address: [address] [place] [address] Performed By: #### 5 7021-8 ####[facility] LABORATORYCLIA [id number] [address] [place] Hemoglobin (Bld) [Mass/Vol] 14.3 g/dL Normal 11.5-15.5 [facility] Comment on above: Order Comment: Speci men Type: BLOOD SPECIMENOrdering Facility: [facility] Address: [address] [place] [address] Performed By: #### 5 7021-8 ####[facility] LABORATORYCLIA [id number] [address] Immature granulocytes (Bld) [#/Vol] 0.03 10*3/uL Normal <0.10 [facility] Comment on above: Order Comment: Speci men Type: BLOOD SPECIMENOrdering Facility: [facility] Address: [address] [place] [address] Performed By: #### 5 7021-8 ####[facility] LABORATORYCLIA [id number] [address] STATES [facility] Immature granulocytes/100 WBC (Bld) 0.4 % Normal [facility] Comment on above: Order Comment: Speci men Type: BLOOD SPECIMENOrdering Facility: [facility] Address: [address] [place] [address] Performed By: #### 5 7021-8 ####[facility] LABORATORYCLIA [id number] [address] [place] Lymphocytes (Bld) [#/Vol] 1.78 10*3/uL Normal 1.00-4.00 [facility] Comment on above: Order Comment: Speci men Type: BLOOD SPECIMENOrdering Facility: [facility] Address: [address] [place] [address] Performed By: #### 5 7021-8 ####[facility] LABORATORYCLIA [id number] [address] Lymphocytes/100 WBC (Bld) 24.9 % Normal [facility] Comment on above: Order Comment: Speci men Type: BLOOD SPECIMENOrdering Facility: [facility] Address: [address] [place] [address] Performed By: #### 5 7021-8 ####[facility] LABORATORYCLIA [id number] [address] [place] MCH (RBC) [Entitic mass] 31.4 pg Normal 26.0-34.0 [facility] Comment on above: Order Comment: Speci men Type: BLOOD SPECIMENOrdering Facility: [facility] Address: [address] [place] [address] Performed By: #### 5 7021-8 ####[facility] LABORATORYCLIA [id number] [address] [place] MCHC (RBC) [Mass/Vol] 34.0 g/dL Normal 30.5-36.0 [facility] Comment on above: Order Comment: Speci men Type: BLOOD SPECIMENOrdering Facility: [facility] Address: [address] [place] [address] Performed By: #### 5 7021-8 ####[facility] LABORATORYCLIA [id number] [address] [place] MCV (RBC) [Entitic vol] 92.3 fL Normal 80.0-100.0 [facility] Comment on above: Order Comment: Speci men Type: BLOOD SPECIMENOrdering Facility: [facility] Address: [address] [place] [address] Performed By: #### 5 7021-8 ####[facility] LABORATORYCLIA [id number] [address] STATES OF [facility] Monocytes (Bld) [#/Vol] 0.50 10*3/uL Normal <0.87 [facility] Comment on above: Order Comment: Speci men Type: BLOOD SPECIMENOrdering Facility: [facility] Address: [address] [place] [address] Performed By: #### 5 7021-8 ####[facility] LABORATORYCLIA [id number] [address] Monocytes/100 WBC (Bld) 7.0 % Normal [facility] Comment on above: Order Comment: Speci men Type: BLOOD SPECIMENOrdering Facility: [facility] Address: [address] [place] [address] Performed By: #### 5 7021-8 ####[facility] LABORATORYCLIA [id number] [address] [place] Neutrophils (Bld) [#/Vol] 4.54 10*3/uL Normal 1.45-7.50 [facility] Comment on above: Order Comment: Speci men Type: BLOOD SPECIMENOrdering Facility: [facility] Address: [address] [place] [address] Performed By: #### 5 7021-8 ####[facility] LABORATORYCLIA [id number] [address] Neutrophils/100 WBC (Bld) 63.4 % Normal [facility] Comment on above: Order Comment: Speci men Type: BLOOD SPECIMENOrdering Facility: [facility] Address: [address] [place] [address] Performed By: #### 5 7021-8 ####[facility] LABORATORYCLIA [id number] [address] [place] Nucleated RBC (Bld) [#/Vol] 10*3/uL Normal <0.01 [facility] Comment on above: Order Comment: Speci men Type: BLOOD SPECIMENOrdering Facility: [facility] Address: [address] [place] [address] Performed By: #### 5 7021-8 ####[facility] LABORATORYCLIA [id number] [address] [place] Nucleated RBC/100 WBC (Bld) [Ratio] 0.0 /100 WBC Normal [facility] Comment on above: Order Comment: Speci men Type: BLOOD SPECIMENOrdering Facility: [facility] Address: [address] [place] [address] Performed By: #### 5 7021-8 ####[facility] LABORATORYCLIA [id number] [place] [address] [place] Platelet mean volume (Bld) [Entitic vol] 9.6 fL Normal 9.0-12.7 [facility] Comment on above: Order Comment: Speci men Type: BLOOD SPECIMENOrdering Facility: [facility] Address: [address] [place] [address] Performed By: #### 5 7021-8 ####[facility] LABORATORYCLIA [id number] [place] [address] [place] Platelets (Bld) [#/Vol] 274 10*3/uL Normal 150-400 [facility] Comment on above: Order Comment: Speci men Type: BLOOD SPECIMENOrdering Facility: [facility] Address: [address] [place] [address] Performed By: #### 5 7021-8 ####[facility] LABORATORYCLIA [id number] [address] STATES OF [facility] RBC (Bld) [#/Vol] 4.55 10*6/uL Normal 3.90-5.20 [facility] Comment on above: Order Comment: Speci men Type: BLOOD SPECIMENOrdering Facility: [facility] Address: [address] [place] [address] Performed By: #### 5 7021-8 ####[facility] LABORATORYCLIA [id number] [address] WBC (Bld) [#/Vol] 7.16 10*3/uL Normal 3.70-11.00 [facility] Comment on above: Order Comment: Speci men Type: BLOOD SPECIMENOrdering Facility: [facility] Address: [address] [place] [address] Performed By: #### 5 7021-8 ####[facility] LABORATORYCLIA [id number] [address] CONSULT PROGon 04-22-2024 CONSULT PROG Normal [facility] ECG COMPLETEon 04-22-2024 ECG COMPLETE Normal [facility] ECHO WITH AGITATED SALINE CO NTRASTon 04-22-2024 ECHO WITH AGITATED SALINE CONTRAST Normal [facility] Magnesium SerPl-mCncon 04-22 Magnesium [Mass/Vol] 2.0 mg/dL Normal 1.7-2.3 [facility] Comment on above: Order Comment: Speci men Type: BLOOD SPECIMENOrdering Facility: [facility] Address: [address] [place] [address] Performed By: #### 2 4321-2, 05024-4 ####[facility] LABORATORYCLIA [id number] [address] [place] THERAPY NTon 04-22-2024 THERAPY NT Normal [facility] THERAPY NT Normal [facility] US DVT LOWER BILon US DVT LOWER TRACEE Normal [facility] ALLIED HEALTHon 04-21-2024 ALLIED HEALTH Normal [facility] Basic metabolic 2000 panelon 04-21-2024 Anion gap [Moles/Vol] 14 mmol/L Normal 8-15 [facility] Comment on above: Order Comment: Speci men Type: BLOOD SPECIMENOrdering Facility: [facility] Address: [address] [place] [address] Performed By: #### 2 432-2, ####[facility] LABORATORYCLIA [id number] [place] [address] [place] Calcium [Mass/Vol] 9.0 mg/dL Normal 8.5-10.2 [facility] Comment on above: Order Comment: Speci men Type: BLOOD SPECIMENOrdering Facility: [facility] Address: [address] [place] [address] Performed By: #### 2 2, ####[facility] LABORATORYCLIA [id number] [place] [address] [place] Chloride [Moles/Vol] 106 mmol/L Normal 98-107 [facility] Comment on above: Order Comment: Speci men Type: BLOOD SPECIMENOrdering Facility: [facility] Address: [address] [place] [address] Performed By: #### 2 4320-09, ####[facility] LABORATORYCLIA [id number] [place] [id number] [place] CO2 [Moles/Vol] 21 mmol/L Low 22-30 [facility] Comment on above: Order Comment: Speci men Type: BLOOD SPECIMENOrdering Facility: [facility] Address: [address] [place] [address] Performed By: #### 2 4320-2, ####[facility] LABORATORYCLIA [id number] [place] [address] [place] Creatinine [Mass/Vol] 0.77 mg/dL Normal 0.58-0.96 [facility] Comment on above: Order Comment: Prince omer Type: BLOOD SPECIMENOrdering Facility: [facility] Address: [address] [place] [address] Performed By: #### 2 4321-2, ####[facility] LABORATORYCLIA [id number] [place] [id number] [facility] Creatinine and Glomerular filtration rate.predicted panel (S/P/Bld) 84 mL/min/1.73m??? Normal >=60 [facility] Comment on above: Order Comment: Prince omer Type: BLOOD SPECIMENOrdering Facility: [facility] Address: [address] [place] [address] Result Comment: Conchita mated Glomerular Filtration Rate [...] actual GFR. Performed By: #### 2 4321-, ####[facility] LABORATORYCLIA [id number] [address] [place] Glucose [Mass/Vol] 91 mg/dL Normal 74-99 [facility] Comment on above: Order Comment: Prince omer Type: BLOOD SPECIMENOrdering Facility: [facility] Address: [address] [place] [address] Result Comment: The [place] Diabetes Association (ADA) provides guidance for cutoff [...] Standards of Medical Care in Diabetes 2016, [place] [employer]. Diabetes Care. 2016.39(Suppl 1). Performed By: #### 2 432-2, ####[facility] LABORATORYCLIA [id number] [place] [address] [place] Potassium [Moles/Vol] 3.9 mmol/L Normal 3.7-5.1 [facility] Comment on above: Order Comment: Speci men Type: BLOOD SPECIMENOrdering Facility: [facility] Address: [address] [place] [address] Performed By: #### 2 4322, ####[facility] LABORATORYCLIA [id number] [address] [place] Sodium [Moles/Vol] 141 mmol/L Normal 136-144 [facility] Comment on above: Order Comment: Speci men Type: BLOOD SPECIMENOrdering Facility: [facility] Address: [address] [place] [address] Performed By: #### 2 43208-20, ####[facility] LABORATORYCLIA [id number] [address] STATES OF [facility] Urea nitrogen [Mass/Vol] 16 mg/dL Normal 7-21 [facility] Comment on above: Order Comment: Speci men Type: BLOOD SPECIMENOrdering Facility: [facility] Address: [address] [place] [address] Performed By: #### 2 4320-09, ####[facility] LABORATORYCLIA [id number] [place] [address] [place] CASE MGT INIT ASSESon 2023 CASE MGT INIT ASSES Normal [facility] CBC panel Auto (Bld)on 04-21 Erythrocyte distribution width (RBC) [Ratio] 12.5 % Normal 11.5-15.0 [facility] Comment on above: Order Comment: Speci men Type: BLOOD SPECIMENOrdering Facility: [facility] Address: [address] [place] [address] Performed By: #### 5 8410-2 ####[facility] LABORATORYCLIA [id number] [address] Hematocrit (Bld) [Volume fraction] 41.5 % Normal 36.0-46.0 [facility] Comment on above: Order Comment: Speci men Type: BLOOD SPECIMENOrdering Facility: [facility] Address: [address] [place] [address] Performed By: #### 5 8410-2 ####[facility] LABORATORYCLIA [id number] [address] OF [facility] Hemoglobin (Bld) [Mass/Vol] 13.9 g/dL Normal 11.5-15.5 [facility] Comment on above: Order Comment: Speci men Type: BLOOD SPECIMENOrdering Facility: [facility] Address: [address] [place] [address] Performed By: #### 5 8410-2 ####[facility] LABORATORYCLIA [id number] [address] STATES OF [facility] MCH (RBC) [Entitic mass] 31.2 pg Normal 26.0-34.0 [facility] Comment on above: Order Comment: Speci men Type: BLOOD SPECIMENOrdering Facility: [facility] Address: [address] [place] [address] Performed By: #### 5 8410-2 ####[facility] LABORATORYCLIA [id number] [address] [place] MCHC (RBC) [Mass/Vol] 33.5 g/dL Normal 30.5-36.0 [facility] Comment on above: Order Comment: Speci men Type: BLOOD SPECIMENOrdering Facility: [facility] Address: [address] [place] [address] Performed By: #### 5 8410-2 ####[facility] LABORATORYCLIA [id number] [address] [place] MCV (RBC) [Entitic vol] 93.0 fL Normal 80.0-100.0 [facility] Comment on above: Order Comment: Speci men Type: BLOOD SPECIMENOrdering Facility: [facility] Address: [address] [place] [address] Performed By: #### 5 8410-2 ####[facility] LABORATORYCLIA [id number] [place] [address] [place] Nucleated RBC (Bld) [#/Vol] 10*3/uL Normal <0.01 [facility] Comment on above: Order Comment: Speci men Type: BLOOD SPECIMENOrdering Facility: [facility] Address: [address] [place] [address] Performed By: #### 5 8410-2 ####[facility] LABORATORYCLIA [id number] [place] [address] [place] Platelet mean volume (Bld) [Entitic vol] 9.5 fL Normal 9.0-12.7 [facility] Comment on above: Order Comment: Speci men Type: BLOOD SPECIMENOrdering Facility: [facility] Address: [address] [place] [address] Performed By: #### 5 8410-2 ####[facility] LABORATORYCLIA [id number] [place] [address] [place] Platelets (Bld) [#/Vol] 246 10*3/uL Normal 150-400 [facility] Comment on above: Order Comment: Speci men Type: BLOOD SPECIMENOrdering Facility: [facility] Address: [address] [place] [address] Performed By: #### 5 8410-2 ####[facility] LABORATORYCLIA [id number] [place] [address] [place] RBC (Bld) [#/Vol] 4.46 10*6/uL Normal 3.90-5.20 [facility] Comment on above: Order Comment: Speci men Type: BLOOD SPECIMENOrdering Facility: [facility] Address: [address] [place] [address] Performed By: #### 5 8410-2 ####[facility] LABORATORYCLIA [id number] [address] [place] WBC (Bld) [#/Vol] 7.57 10*3/uL Normal 3.70-11.00 [facility] Comment on above: Order Comment: Speci men Type: BLOOD SPECIMENOrdering Facility: [facility] Address: [address] [place] [address] Performed By: #### 5 8410-2 ####[facility] LABORATORYCLIA [id number] [address] [place] CT BRAIN WO IVCONon 04-21-[address] BRAIN WO IVCON Normal [facility] ECG COMPLETEon 04-21-2024 ECG COMPLETE Normal [facility] HIGH SENSITIVITY TROPONIN To n 04-21-2024 Troponin T.cardiac High sensitivity method [Mass/Vol] 9 ng/L Normal <12 [facility] Comment on above: Order Comment: Speci men Type: BLOOD SPECIMENOrdering Facility: [facility] Address: [address] [place] [address] Performed By: #### H STNT ####[facility] LABORATORYCLIA [id number] [address] [place] MRI BRAIN WO/W IVCONon 04-21 MRI BRAIN WO/W IVCON Normal [facility] Magnesium SerPl-mCncon 04-21 Magnesium [Mass/Vol] 2.0 mg/dL Normal 1.7-2.3 [facility] Comment on above: Order Comment: Speci men Type: BLOOD SPECIMENOrdering Facility: [facility] Address: [address] [place] [address] Performed By: #### 2 4321-2, 44614-3 ####[facility] LABORATORYCLIA [id number] [address] [place] THERAPY NTon 04-21-2024 THERAPY NT Normal [facility] TSH SerPl-aCncon 04-21-2024 TSH Qn 1.910 m[IU]/L Normal 0.270-4.200 [facility] Comment on above: Order Comment: Speci men Type: BLOOD SPECIMENOrdering Facility: [facility] Address: [address] [place] [address] Performed By: #### 3 016-3 ####[facility] LABORATORYCLIA [id number] [place] [id number] [place] Basic metabolic 2000 panelon 04-20-2024 Anion gap [Moles/Vol] 12 mmol/L Normal 8-15 [facility] Comment on above: Order Comment: Speci men Type: BLOOD SPECIMENOrdering Facility: [facility] Address: [address] [place] [address] Performed By: #### 2 4321-2, 27986-0, 277-1, 07568-0 ####[facility] LABORATORYCLIA [id number] [address] [place] Calcium [Mass/Vol] 9.0 mg/dL Normal 8.5-10.2 [facility] Comment on above: Order Comment: Speci men Type: BLOOD SPECIMENOrdering Facility: [facility] Address: [address] [place] [address] Performed By: #### 2 4321-2, 20200-3, 2776-1, 81950-1 ####[facility] LABORATORYCLIA [id number] [place] [address] [place] Chloride [Moles/Vol] 103 mmol/L Normal 98-107 [facility] Comment on above: Order Comment: Speci men Type: BLOOD SPECIMENOrdering Facility: [facility] Address: [address] [place] [address] Performed By: #### 2 4321-2, 72440-6, 7-1, 44499-9 ####[facility] LABORATORYCLIA [id number] [place] [id number] [place] CO2 [Moles/Vol] 24 mmol/L Normal 22-30 [facility] Comment on above: Order Comment: Speci men Type: BLOOD SPECIMENOrdering Facility: [facility] Address: [address] [place] [address] Performed By: #### 2 4321-2, , 2776-08, ####[facility] HOSPITALIA [id number] [place] [id number] [place] OF [facility] Creatinine [Mass/Vol] 0.92 mg/dL Normal 0.58-0.96 [facility] Comment on above: Order Comment: Prince omer Type: BLOOD SPECIMENOrdering Facility: [facility] Address: [address] [place] [address] Performed By: #### 2 4321-2, , 2776-08, ####[facility] HOSPITALIA [id number] [place] [id number] [facility] Creatinine and Glomerular filtration rate.predicted panel (S/P/Bld) 68 mL/min/1.73m??? Normal >=60 [facility] Comment on above: Order Comment: Prince omer Type: BLOOD SPECIMENOrdering Facility: [facility] Address: [address] [place] [address] Result Comment: Conchita mated Glomerular Filtration Rate [...] Performed By: #### 2 4321-2, , 2776-08, ####[facility] HOSPITALIA [id number] [place] [id number] [facility] Glucose [Mass/Vol] 94 mg/dL Normal 74-99 [facility] Comment on above: Order Comment: Speci peter Type: BLOOD SPECIMENOrdering Facility: [facility] Address: [address] [place] [address] Result Comment: The [place] Diabetes Association (ADA) provides guidance for cutoff [...] Standards of Medical Care in Diabetes 2016, [place] Diabetes Association. Diabetes Care. 2016.39(Suppl 1). Performed By: #### 2 4321-2, , 2776-08, 85246-0 ####[facility] LABORATORYCLIA [id number] [place] [address] [place] Potassium [Moles/Vol] 3.6 mmol/L Low 3.7-5.1 [facility] Comment on above: Order Comment: Prince omer Type: BLOOD SPECIMENOrdering Facility: [facility] Address: [address] [place] [address] Performed By: #### 2 432-2, , 2776-08, 67027-3 ####[facility]OSPITALCLIA [id number] [place] [address] [place] Sodium [Moles/Vol] 139 mmol/L Normal 136-144 [facility] Comment on above: Order Comment: Prince omer Type: BLOOD SPECIMENOrdering Facility: [facility] Address: [address] [place] [address] Performed By: #### 2 4321-2, , 2776-08, 39185-5 ####[facility] LABORATORYCLIA [id number] [address] [place] Urea nitrogen [Mass/Vol] 19 mg/dL Normal 7-21 [facility] Comment on above: Order Comment: Prince omer Type: BLOOD SPECIMENOrdering Facility: [facility] Address: [address] [place] [address] Performed By: #### 2 4321-2, , 2776-, 39064-9 ####[facility] LABORATORYCLIA [id number] [place] [address] [place] CBC panel Auto (Bld)on 04-20 Erythrocyte distribution width (RBC) [Ratio] 12.4 % Normal 11.5-15.0 [facility] Comment on above: Order Comment: Speci men Type: BLOOD SPECIMENOrdering Facility: [facility] Address: [address] [place] [address] Performed By: #### 5 8410-2 ####[facility] LABORATORYCLIA [id number] [address] OF [facility] Hematocrit (Bld) [Volume fraction] 40.2 % Normal 36.0-46.0 [facility] Comment on above: Order Comment: Speci men Type: BLOOD SPECIMENOrdering Facility: [facility] Address: [address] [place] [address] Performed By: #### 5 8410-2 ####[facility] LABORATORYCLIA [id number] [address] Hemoglobin (Bld) [Mass/Vol] 13.6 g/dL Normal 11.5-15.5 [facility] Comment on above: Order Comment: Speci men Type: BLOOD SPECIMENOrdering Facility: [facility] Address: [address] [place] [address] Performed By: #### 5 8410-2 ####[facility] LABORATORYCLIA [id number] [address] [place] MCH (RBC) [Entitic mass] 31.4 pg Normal 26.0-34.0 [facility] Comment on above: Order Comment: Speci men Type: BLOOD SPECIMENOrdering Facility: [facility] Address: [address] [place] [address] Performed By: #### 5 8410-2 ####[facility] LABORATORYCLIA [id number] [address] [place] MCHC (RBC) [Mass/Vol] 33.8 g/dL Normal 30.5-36.0 [facility] Comment on above: Order Comment: Speci men Type: BLOOD SPECIMENOrdering Facility: [facility] Address: [address] [place] [address] Performed By: #### 5 8410-2 ####[facility] LABORATORYCLIA [id number] [address] OF [facility] MCV (RBC) [Entitic vol] 92.8 fL Normal 80.0-100.0 [facility] Comment on above: Order Comment: Speci men Type: BLOOD SPECIMENOrdering Facility: [facility] Address: [facility] [place] [address] Performed By: #### 5 8410-2 ####[facility] LABORATORYCLIA [id number] [address] [place] Nucleated RBC (Bld) [#/Vol] 10*3/uL Normal <0.01 [facility] Comment on above: Order Comment: Speci men Type: BLOOD SPECIMENOrdering Facility: [facility] Address: [address] [place] [address] Performed By: #### 5 8410-2 ####[facility] LABORATORYCLIA [id number] [address] [place] Platelet mean volume (Bld) [Entitic vol] 9.9 fL Normal 9.0-12.7 [facility] Comment on above: Order Comment: Speci men Type: BLOOD SPECIMENOrdering Facility: [facility] Address: [address] [place] [address] Performed By: #### 5 8410-2 ####[facility] LABORATORYCLIA [id number] [address] [place] Platelets (Bld) [#/Vol] 278 10*3/uL Normal 150-400 [facility] Comment on above: Order Comment: Speci men Type: BLOOD SPECIMENOrdering Facility: [facility] Address: [facility] [place] [address] Performed By: #### 5 8410-2 ####[facility] LABORATORYCLIA [id number] [address] [place] RBC (Bld) [#/Vol] 4.33 10*6/uL Normal 3.90-5.20 [facility] Comment on above: Order Comment: Speclizett omer Type: BLOOD SPECIMENOrdering Facility: [facility] Address: [address] [place] [address] Performed By: #### 5 8410-2 ####[facility] LABORATORYCLIA [id number] [place] [address] [place] WBC (Bld) [#/Vol] 7.81 10*3/uL Normal 3.70-11.00 [facility] Comment on above: Order Comment: Speci men Type: BLOOD SPECIMENOrdering Facility: [facility] Address: [address] [place] [address] Performed By: #### 5 8410-2 ####[facility] LABORATORYCLIA [id number] [place] [id number] [place] CONSULTon 04-20-2024 CONSULT Normal [facility] CT BRAIN WO IVCONon 04-20-[address] BRAIN WO IVCON Normal [facility] HbA1c (Bld)on 04-20-2024 Average glucose Estimated from glycated hemoglobin (Bld) [Mass/Vol] 105 mg/dL Normal [facility] Comment on above: Order Comment: [facility] Type: BLOOD SPECIMENOrdering Facility: [facility] Address: [address] [place] [address] Result Comment: eAG: (Estimated average glucose) is a calculated value from HgbA1c and is distribution sales representative of the average blood glucose level in the last 2-3 month period. Performed By: #### 5 5454-3 ####[facility] LABCLIA [id number] [facility] [place] [address] [place] HbA1c (Bld) [Mass fraction] 5.3 % Normal 4.3-5.6 [facility] Comment on above: Order Comment: [facility] Type: BLOOD SPECIMENOrdering Facility: [facility] Address: [address] [place] [address] Result Comment: Amer [place] Diabetes Association guidelines indicate that patients with HgbA1c in the range 5.7-6.4% are at increased risk for development of diabetes, and intervention by lifestyle modification may be beneficial. HgbA1c greater or equal to 6.5% is considered diagnostic of diabetes. Performed By: #### 5 5454-3 ####[facility] LABCLIA [id number] [facility] [place]QMQJ[place]OTE[place], [place] [address] [place] Lipid 1996 panelon 4 Cholesterol [Mass/Vol] 129 mg/dL Normal <200 [facility] Comment on above: Order Comment: Speci men Type: BLOOD SPECIMENOrdering Facility: [facility] Address: [address] [place] [address] Result Comment: <200 mg/dL, Desirable 200-239 mg/dL, Borderline high>239 mg/dL, High Performed By: #### 2 4321-2, 53486-5, 2776-08, 11563-5 ####[facility] LABORATORYCLIA [id number] [address] [place] Cholesterol in HDL [Mass/Vol] 42 mg/dL Normal >39 [facility] Comment on above: Order Comment: Speci men Type: BLOOD SPECIMENOrdering Facility: [facility] Address: [address] [place] [address] Result Comment: 40-5 9 mg/dL, Acceptable>59 mg/dL, High: Negative risk factor for coronary heart disease<40 mg/dL, Low: Positive risk factor for coronary heart disease Performed By: #### 2 4321-2, , 2776-08, 74327-6 ####[facility] LABORATORYCLIA [id number] [address] OF [facility] Cholesterol in LDL [Mass/Vol] 73 mg/dL Normal <100 [facility] Comment on above: Order Comment: Speci men Type: BLOOD SPECIMENOrdering Facility: [facility] Address: [address] [place] [address] Result Comment: <100 mg/dL, Optimal 100-129 mg/dL, Near optimal/above optimal 130-159 mg/dL, Borderline high 160-189 mg/dL, High>189 mg/dL, Very highSecondary prevention optimal LDL Cholesterol levels are recommended to be < 70 mg/dL Performed By: #### 2 4321-2, 62729-4, 2777-1, 05707-5 ####[facility] LABORATORYCLIA [id number] [address] Cholesterol in LDL/Cholesterol in HDL [Mass ratio] 1.74 {ratio} Normal <2.54 [facility] Comment on above: Order Comment: Speci men Type: BLOOD SPECIMENOrdering Facility: [facility] Address: [address] [place] [address] Result Comment: Refe rence:1. National Cholesterol Education Program ATP III Guideline At-A-Glance Quick Desk Reference: National Heart, Lung, and Blood [place]. National Institutes of Health. 2001: NIH Publication No. 01-3305.2. An International Atherosclerosis Society position paper: global recommendations for the management of dyslipidemia: executive summary, Atherosclerosis. 2014: 232(2):410-413. Performed By: #### 2 4321-2, 82850-2, 2777-, 47190-9 ####[facility]PITALCLIA [id number] [address] Cholesterol in VLDL [Mass/Vol] 14 mg/dL Normal <30 [facility] Comment on above: Order Comment: Speci men Type: BLOOD SPECIMENOrdering Facility: [facility] Address: [address] [place] [address] Performed By: #### 2 4321-2, 34318-0, 277-, 27958-8 ####[facility] LABORATORYCLIA [id number] [address] OF [facility] Cholesterol non HDL [Mass/Vol] 87 mg/dL Normal <130 [facility] Comment on above: Order Comment: Speci men Type: BLOOD SPECIMENOrdering Facility: [facility] Address: [address] [place] [address] Result Comment: <130 mg/dL, Optimal 130-159 mg/dL, Near optimal/above optimal 160-189 mg/dL, Borderline high 190-219 mg/dL, High>219 mg/dL, Very highSecondary prevention optimal non HDL Cholesterol levels are recommended to be <100 mg/dL Performed By: #### 2 4321-2, 32481-6, 2777-1, 01378-5 ####[facility] LABORATORYCLIA [id number] [address] Cholesterol.total/Chol esterol in HDL [Mass ratio] 3.07 {ratio} Normal <5.10 [facility] Comment on above: Order Comment: Speci men Type: BLOOD SPECIMENOrdering Facility: [facility] Address: [address] [place] [address] Performed By: #### 2 4321-2, 74708-1, 2777-1, 05593-6 ####[facility] LABORATORYCLIA [id number] [address] FASTING TIME 8 hrs Normal [facility] Comment on above: Order Comment: Speci men Type: BLOOD SPECIMENOrdering Facility: [facility] Address: [address] [place] [address] Performed By: #### 2 4321-2, 87411-2, 2776-1, 56668-8 ####[facility] LABORATORYCLIA [id number] [address] Triglyceride [Mass/Vol] 71 mg/dL Normal <150 [facility] Comment on above: Order Comment: Speci men Type: BLOOD SPECIMENOrdering Facility: [facility] Address: [address] [place] [address] Result Comment: <150 mg/dL, Normal 150-199 mg/dL, Borderline high 200-499 mg/dL, High>499 mg/dL, Very high Performed By: #### 2 4321-2, 01253-8, 2777-1, 21307-2 ####[facility] LABORATORYCLIA [id number] [address] [place] Magnesium SerPl-mCncon 04-20 Magnesium [Mass/Vol] 2.0 mg/dL Normal 1.7-2.3 [facility] Comment on above: Order Comment: Speci men Type: BLOOD SPECIMENOrdering Facility: [facility] Address: [address] [place] [address] Performed By: #### 2 4321-2, 01284-3, 2776-08, 96079-6 ####[facility] LABORATORYCLIA [id number] [place] [address] [facility] NURSING PROGon 04-20-2024 NURSING PROG Normal [facility] Phosphate SerPl-mCncon 04-20 Phosphate [Mass/Vol] 4.1 mg/dL Normal 2.7-4.8 [facility] Comment on above: Order Comment: Speci men Type: BLOOD SPECIMENOrdering Facility: [facility] Address: [facility] [place] [address] Performed By: #### 2 4321-2, , 2776-08, 15027-9 ####[facility] LABORATORYCLIA [id number] [address] STATES OF [facility] Basic metabolic 2000 panelon 04-19-2024 Anion gap [Moles/Vol] 16 mmol/L High 8-15 [facility] Comment on above: Order Comment: Speci men Type: BLOOD SPECIMENOrdering Facility: [facility] Address: [facility] [place] [address] Performed By: #### 2 4321-2, 49909-4, , 2776-08 ####[facility] LABORATORYCLIA [id number] [address] [place] Calcium [Mass/Vol] 9.4 mg/dL Normal 8.5-10.2 [facility] Comment on above: Order Comment: Speci men Type: BLOOD SPECIMENOrdering Facility: [facility] Address: [address] [place], [place] [address] [address] Performed By: #### 2 4321-2, 97375-9, , 2776-08 ####[facility] LABORATORYCLIA [id number] [place] [id number] [place] Chloride [Moles/Vol] 100 mmol/L Normal 98-107 [facility] Comment on above: Order Comment: Speci men Type: BLOOD SPECIMENOrdering Facility: [facility] Address: [address] [place] [address] Performed By: #### 2 4321-2, 89311-4, , 2776-08 ####[facility] LABORATORYCLIA [id number] [address] STATES OF [facility] CO2 [Moles/Vol] 24 mmol/L Normal 22-30 [facility] Comment on above: Order Comment: Speci men Type: BLOOD SPECIMENOrdering Facility: [facility] Address: [address] [place], [place] [address] Performed By: #### 2 4321-2, 35433-5, , 2776-08 ####[facility] LABORATORYCLIA [id number] [address] Creatinine [Mass/Vol] 0.92 mg/dL Normal 0.58-0.96 [facility] Comment on above: Order Comment: Speci men Type: BLOOD SPECIMENOrdering Facility: [facility] Address: [address] [place] [address] Performed By: #### 2 4321-2, 76096-8, , 2776-08 ####[facility] LABORATORYCLIA [id number] [address] Creatinine and Glomerular filtration rate.predicted panel (S/P/Bld) 68 mL/min/1.73m??? Normal >=60 [facility] Comment on above: Order Comment: Spe[place]iz[place] omer Type: BLOOD SPECIMENOrdering Facility: [facility] Address: [address] [place] [address] Result Comment: Conchita mated Glomerular Filtration Rate [...] actual GFR. Performed By: #### 2 4321-2, 92007-0, 74890-3, 2776- ####[facility] LABORATORYCLIA [id number] [place] [address] [place] Glucose [Mass/Vol] 102 mg/dL High 74-99 [facility] Comment on above: Order Comment: Speci men Type: BLOOD SPECIMENOrdering Facility: [facility] Address: [address] [place] [address] Result Comment: The [place] Diabetes Association (ADA) provides guidance for cutoff [...] Standards of Medical Care in Diabetes 2016, [place] Diabetes Association. Diabetes Care. 2016.39(Suppl 1). Performed By: #### 2 4321-2, 81281-7, , 2776-08 ####[facility] LABORATORYCLIA [id number] [place] [address] [place] Potassium [Moles/Vol] 3.9 mmol/L Normal 3.7-5.1 [facility] Comment on above: Order Comment: Speci men Type: BLOOD SPECIMENOrdering Facility: [facility] Address: [address] [place] [address] Performed By: #### 2 4321-2, 85602-6, 72692-3, 2776- ####[facility] LABORATORYCLIA [id number] [place] [id number] [place] Sodium [Moles/Vol] 140 mmol/L Normal 136-144 [facility] Comment on above: Order Comment: Speci men Type: BLOOD SPECIMENOrdering Facility: [facility] Address: [address] [place] [address] Performed By: #### 2 4321-2, 37866-9, 76067-0, 2777-1 ####[facility] LABORATORYCLIA [id number] [place] [address] [place] [facility] Urea nitrogen [Mass/Vol] 19 mg/dL Normal 7-21 [facility] Comment on above: Order Comment: Speci men Type: BLOOD SPECIMENOrdering Facility: [facility] Address: [address] [place] [address] Performed By: #### 2 4321-2, 97159-6, 68041-1, 277- ####[facility] LABORATORYCLIA [id number] [address] [place] OF [facility] CBC panel Auto (Bld)on 04-19 Erythrocyte distribution width (RBC) [Ratio] 12.5 % Normal 11.5-15.0 [facility] Comment on above: Order Comment: Speci men Type: BLOOD SPECIMENOrdering Facility: [facility] Address: [address] [place] [address] Performed By: #### 5 8410-2 ####[facility] LABORATORYCLIA [id number] [address] STATES OF [facility] Hematocrit (Bld) [Volume fraction] 43.1 % Normal 36.0-46.0 [facility] Comment on above: Order Comment: Speci men Type: BLOOD SPECIMENOrdering Facility: [facility] Address: [address] [place] [address] Performed By: #### 5 8410-2 ####[facility] LABORATORYCLIA [id number] [address] [place] Hemoglobin (Bld) [Mass/Vol] 14.9 g/dL Normal 11.5-15.5 [facility] Comment on above: Order Comment: Speci men Type: BLOOD SPECIMENOrdering Facility: [facility] Address: [address] [place] [address] Performed By: #### 5 8410-2 ####[facility] LABORATORYCLIA [id number] [address] [place] MCH (RBC) [Entitic mass] 31.6 pg Normal 26.0-34.0 [facility] Comment on above: Order Comment: Speci men Type: BLOOD SPECIMENOrdering Facility: [facility] Address: [address] [place] [address] Performed By: #### 5 8410-2 ####[facility] LABORATORYCLIA [id number] [address] [place] MCHC (RBC) [Mass/Vol] 34.6 g/dL Normal 30.5-36.0 [facility] Comment on above: Order Comment: Speci men Type: BLOOD SPECIMENOrdering Facility: [facility] Address: [address] [place] [address] Performed By: #### 5 8410-2 ####[facility] LABORATORYCLIA [id number] [address] [place] MCV (RBC) [Entitic vol] 91.3 fL Normal 80.0-100.0 [facility] Comment on above: Order Comment: Speci men Type: BLOOD SPECIMENOrdering Facility: [facility] Address: [address] [place] [address] Performed By: #### 5 8410-2 ####[facility] LABORATORYCLIA [id number] [address] [place] Nucleated RBC (Bld) [#/Vol] 10*3/uL Normal <0.01 [facility] Comment on above: Order Comment: Speci men Type: BLOOD SPECIMENOrdering Facility: [facility] Address: [address] [place] [address] Performed By: #### 5 8410-2 ####[facility] LABORATORYCLIA [id number] [address] [place] Platelet mean volume (Bld) [Entitic vol] 9.3 fL Normal 9.0-12.7 [facility] Comment on above: Order Comment: Speci men Type: BLOOD SPECIMENOrdering Facility: [facility] Address: [address] [place] [address] Performed By: #### 5 8410-2 ####[facility] LABORATORYCLIA [id number] [place] [address] [place] Platelets (Bld) [#/Vol] 321 10*3/uL Normal 150-400 [facility] Comment on above: Order Comment: Speci men Type: BLOOD SPECIMENOrdering Facility: [facility] Address: [address] [place] [address] Performed By: #### 5 8410-2 ####[facility] LABORATORYCLIA [id number] [place] [address] [place] RBC (Bld) [#/Vol] 4.72 10*6/uL Normal 3.90-5.20 [facility] Comment on above: Order Comment: Speci men Type: BLOOD SPECIMENOrdering Facility: [facility] Address: [address] [place] [address] Performed By: #### 5 8410-2 ####[facility] LABORATORYCLIA [id number] [address] OF [facility] WBC (Bld) [#/Vol] 8.62 10*3/uL Normal 3.70-11.00 [facility] Comment on above: Order Comment: Speci men Type: BLOOD SPECIMENOrdering Facility: [facility] Address: [address] [place] [address] Performed By: #### 5 8410-2 ####[facility] LABORATORYCLIA [id number] [address] [place] BRAIN ATTACK WO IVCONon 0 04-19-2024 CT BRAIN ATTACK WO IVCON Invalid Interpretation Code [facility] CT BRAIN WO IVCONon 04-19-[address] BRAIN WO IVCON Normal [facility] CTA HEAD W IVCONon 4 CTA HEAD W IVCON Normal [facility] CTA NECK W IVCONon 4 CTA NECK W IVCON Normal [facility] ED NOTEon 04-19-2024 ED NOTE HNO ID: [id number] Author: SONYA VILA RN Service: Emergency Medicine Author Type: Registered Nurse Type: ED Notes Filed: 04/19/2024 16:36 Note Text: Dr Shen notified that patient's BP has dropped to 100/80; see orders. Normal [facility] ED NOTE HNO ID: [id number] Author: SONYA VILA RN Service: Emergency Medicine Author Type: Registered Nurse Type: ED Notes Filed: 04/19/2024 16:32 Note Text: Pt c/o sudden onset dizziness; Lisa Petit, SENIOR QUALITY ASSURANCE ENGINEER at beside and aware; see orders. Normal [facility] ED NOTE HNO ID: [id number] Author: SONYA VILA RN Service: Emergency Medicine Author Type: Registered Nurse Type: ED Notes Filed: 04/19/2024 15:34 Note Text: 20 mg TNK given IV at this time. Normal [facility] ED NOTE Normal [facility] ED NOTE Normal [facility] ED PROV NOTEon 04-19-2024 ED PROV NOTE Normal [facility] ED PROV NOTE Normal [facility] HIGH SENSITIVITY TROPONIN To n 04-19-2024 Troponin T.cardiac High sensitivity method [Mass/Vol] 8 ng/L Normal <12 [facility] Comment on above: Order Comment: Speci men Type: BLOOD SPECIMENOrdering Facility: [facility] Address: [address] [place] [address] Performed By: #### H STNT ####[facility] LABORATORYCLIA [id number] [address] STATES OF [facility] HISTORY PHYSICALon HISTORY PHYSICAL Normal [facility] Hepatic function 2000 panelo n 04-19-2024 Albumin [Mass/Vol] 4.3 g/dL Normal 3.9-4.9 [facility] Comment on above: Order Comment: Speci peter Type: BLOOD SPECIMENOrdering Facility: [facility] Address: [address] [place] [address] Performed By: #### 2 4321-2, 70221-0, 93113-0, 2777-1 ####[facility] LABORATORYCLIA [id number] [address] ALP [Catalytic activity/Vol] 132 U/L High 34-123 [facility] Comment on above: Order Comment: Speci men Type: BLOOD SPECIMENOrdering Facility: [facility] Address: [address] [place] [address] Performed By: #### 2 4321-2, 73329-5, , 2776-08 ####[facility] LABORATORYCLIA [id number] [address] [place] [facility] ALT With P-5'-P [Catalytic activity/Vol] 24 U/L Normal 7-38 [facility] Comment on above: Order Comment: Speci men Type: BLOOD SPECIMENOrdering Facility: [facility] Address: [address] [place] [address] Performed By: #### 2 4321-2, 87729-6, , 2776-08 ####[facility] LABORATORYCLIA [id number] [address] OF [facility] AST With P-5'-P [Catalytic activity/Vol] 23 U/L Normal 13-35 [facility] Comment on above: Order Comment: Speci men Type: BLOOD SPECIMENOrdering Facility: [facility] Address: [address] [place] [address] Performed By: #### 2 4321-2, 00269-4, , 2776-08 ####[facility] LABORATORYCLIA [id number] [address] [place] Bilirubin [Mass/Vol] 0.5 mg/dL Normal 0.2-1.3 [facility] Comment on above: Order Comment: Speci men Type: BLOOD SPECIMENOrdering Facility: [facility] Address: [address] [place] [address] Performed By: #### 2 4321-2, 83724-9, , 2776-08 ####[facility] LABORATORYCLIA [id number] [address] Bilirubin.conjugated [Mass/Vol] mg/dL Normal <0.2 [facility] Comment on above: Order Comment: Speci peter Type: BLOOD SPECIMENOrdering Facility: [facility] Address: [address] [place] [address] Performed By: #### 2 4321-2, 19241-4, , 2776-08 ####[facility] LABORATORYCLIA [id number] [place] [address] [place] Protein [Mass/Vol] 6.6 g/dL Normal 6.3-8.0 [facility] Comment on above: Order Comment: Prince peter Type: BLOOD SPECIMENOrdering Facility: [facility] Address: [address] [place], [place] [address] Performed By: #### 2 4321-2, 47902-9, , 2776-08 ####[facility] LABORATORYCLIA [id number] [address] [place] Magnesium SerPl-mCncon 04-19 Magnesium [Mass/Vol] 2.1 mg/dL Normal 1.7-2.3 [facility] Comment on above: Order Comment: Prince peter Type: BLOOD SPECIMENOrdering Facility: [facility] Address: [address] [place] [address] Performed By: #### 2 4321-2, 90016-9, , 2776-08 ####[facility] LABORATORYCLIA [id number] [address] [place] PT panel Coag (PPP)on 2023 INR Coag (PPP) [Relative time] 1.0 {INR} Normal 0.9-1.3 [facility] Comment on above: Order Comment: [facility] Type: BLOOD SPECIMENOrdering Facility: [facility] Address: [address] [place] [address] Result Comment: [place] min K Antagonist (VKA) Therapeutic Range: INR 2 to 3 (Target INR of 2.5)Note: For patients treated with VKA drugs, such as warfarin, the [employer] 2012 Guideline recommends [...] al. Chest 2012, 141:7S-47SNishimura RA, et al. [facility] 2017, 70: 252-289 Performed By: #### 3 4528-0, 42945-5 ####[facility] LABORATORYCLIA [id number] [place] [address] [place] PT Coag (PPP) [Time] 10.3 s Normal 9.7-13.0 [facility] Comment on above: Order Comment: Speci men Type: BLOOD SPECIMENOrdering Facility: [facility] Address: [address] [place] [address] Performed By: #### 3 4528-0, 50330-1 ####[facility] LABORATORYCLIA [id number] [place] [address] [place] Phosphate SerPl-mCncon 04-19 Phosphate [Mass/Vol] 3.1 mg/dL Normal 2.7-4.8 [facility] Comment on above: Order Comment: Speci men Type: BLOOD SPECIMENOrdering Facility: [facility] Address: [address] [place] [address] Performed By: #### 2 4321-2, 75530-0, 27789-5, 2777-1 ####[facility] LABORATORYCLIA [id number] [place] [address] [place] STAPHYLOCOCCUS AUREUS AND MR SA SCREEN, PCR, NASALon 04-19-2024 S. aureus and MRSA panel KRISTOFER+probe (Nose) Methicillin-SUSCEPTIBLE Staphylococcus aureus Detected Abnormal Not Detected [facility] Comment on above: Order Comment: Speci men Type: SWABOrdering Facility: [facility] Address: [address] [place] [address] [place] [address] Performed By: #### S APCR ####[facility] LABORATORYCLIA [id number] [place] [id number] [place] aPTT PPPon 04-19-2024 aPTT Coag (PPP) [Time] 24.2 s Normal 23.0-32.4 [facility] Comment on above: Order Comment: Speci men Type: BLOOD SPECIMENOrdering Facility: [facility] Address: [address] [place] [address] Performed By: #### 3 4528-0, 88474-5 ####[facility] LABORATORYCLIA [id number] [address] [place] Absolute lymphocyte countOrd ered By: Markos Chacon on 12-12-2023 Lymphocytes Auto (Unsp spec) [#/Vol] 1.24 10*3/uL 0.83-4.51 [facility] Automated lymphocyte count a s percentage of total leukocytesOrdered By: Markos Chacon on 12-12-2023 Lymphocytes/100 WBC Auto (Unsp spec) 17.5 % 19-41 [facility] Basophil percentageOrdered B y: Markos Chacon on 12-12-2023 Basophils/100 WBC (Bld) 1.1 % 0-1 [facility] Chloride [Moles/Vol] 105 mmol/L 98-107 [facility] Eosinophils/100 WBC (Bld) 3.0 % 0-5 [facility] Glucose [Mass/Vol] 90 mg/dL 74-106 [facility] Hemoglobin (Bld) [Mass/Vol] 14.8 g/dL 12.0-15.0 [facility] Monocytes/100 WBC (Bld) 9.9 % 0-10 [facility] Neutrophils (Bld) [#/Vol] 4.8 10*3/uL 2.0-7.7 [facility] Neutrophils/100 WBC (Bld) 68.1 % 47-70 [facility] Potassium [Moles/Vol] 3.7 mmol/L 3.5-5.1 [facility] Sodium [Moles/Vol] 141 mmol/L 136-145 [facility] WBC (Bld) [#/Vol] 7.1 10*3/uL 4.4-11.0 [facility] Determination of erythrocyte mean corpuscular volume (MCV)Ordered By: Markos Chacon on 12-12-2023 MCV (RBC) [Entitic vol] 92.4 fL 81-99 [facility] Erythrocyte distribution wid th ratioOrdered By: Markos Chacon on 12-12-2023 Erythrocyte distribution width (RBC) [Ratio] 12.9 % 11.6-14.6 [facility] Erythrocyte distribution wid th standard deviationOrdered By: Markos Chacon on 12-12-2023 Erythrocyte distribution width (RBC) [Entitic vol] 43.8 fL 35.1-43.9 [facility] Hematocrit Auto (Bld) [Volum e fraction]Ordered By: Markos Chacon on 12-12-2023 Hematocrit (Bld) [Volume fraction] 43.8 % 37-47 [facility] Immature granulocytes/100 WB C Auto (Bld)Ordered By: Markos Chacon on 12-12-2023 Immature granulocytes/100 WBC (Bld) 0.400 % 0.0-0.9 [facility] Comment on above: IG% - Immature Granu locytes (promyelocytes, myelocytes and metamyelocytes) > 1% indicates that a LEFT SHIFT is Present. Laboratory - Chemistry and C hemistry - challengeOrdered By: Markos Chacon on 12-12-2023 CO2 [Moles/Vol] 28.0 mmol/L 21.0-32.0 [facility] Urea nitrogen/Creatinine [Mass ratio] 26.9 mg/mg 10-20 [facility] Laboratory - Hematology and Cell countsOrdered By: Markos Chacon on 12-12-2023 MCH (RBC) [Entitic mass] 31.2 pg 27.0-32.0 [facility] MCHC (RBC) [Mass/Vol] 33.8 g/dL 32-36 [facility] Nucleated RBC/100 WBC (Bld) [Ratio] 0 % 0-5 [facility] Platelet mean volume (Bld) [Entitic vol] 9.5 fL 6.2-12.0 [facility] Platelets (Bld) [#/Vol] 268 10*3/uL 150-450 [facility] Laboratory - Microbiology an d Antimicrobial susceptibilityOrdered By: Markos Chacon on 12-12-2023 SARS-CoV-2 (COVID-19) RNA KRISTOFER+probe Ql (Unsp spec) [facility] No Panel InformationOrdered By: Markos Chacon on 12-12-2023 D-Dimer Quantitative (PE/DVT) 0.38 FEU/ug/m 0.27-0.49 [facility] Comment on above: NORMAL D-Dimer level (<0.50) indicates no DVT or PE. Estimated Creatinine Clearance Calc 53.23 ml/min [facility] Estimated GFR (MDRD) Amer 73 mL/min >60 [facility] Comment on above: GFR Calc Estimated GFR (MDRD) Non-Af Amer 61 mL/min >60 [facility] Comment on above: Non- GFR Calc Troponin I High Sensitivity 4 pg/mL 3.0-54.0 [facility] Comment on above: Please Note: New [place] t Units and Gender Specific Reference Ranges. For more information see Policy Stat Procedure [place] High Sensitivity Troponin (TNIH) and attachments. RBC Auto (Bld) [#/Vol]Ordere d By: Markos Chacon on 12-12-2023 RBC (Bld) [#/Vol] 4.74 10*6/uL 4.2-5.4 [facility] Serum or plasma calcium giovany urement (mass/volume)Ordered By: Markos Chacon on 12-12-2023 Calcium [Mass/Vol] 9.2 mg/dL 8.5-10.1 [facility] Serum or plasma creatinine m easurement (mass/volume)Ordered By: Markos Chacon on 12-12-2023 Creatinine [Mass/Vol] 0.97 mg/dL 0.55-1.02 [facility] Comment on above: The validity of the calculated GFR & GFRAA in patients over 70 years has not been determined. Clinical correlation is essential. Serum or plasma urea nitroge n measurement (mass/volume)Ordered By: Markos Chacon on 12-12-2023 Urea nitrogen [Mass/Vol] 26 mg/dL 7-18 [facility] Thin prep Papanicolaou smear with manual screeningOrdered By: Markos Chacon on 12-12-2023 Thin prep Papanicolaou smear with manual screening 8 5-15 [facility] Absolute lymphocyte countOrd ered By: Verónica Lopez on 09-23-2023 Lymphocytes Auto (Unsp spec) [#/Vol] 1.39 10*3/uL 0.83-4.51 [facility] Automated lymphocyte count a s percentage of total leukocytesOrdered By: Verónica Lopez on 09-23-2023 Lymphocytes/100 WBC Auto (Unsp spec) 20.7 % 19-41 [facility] Basophil percentageOrdered B y: Verónica Lopez on 09-23-2023 Basophils/100 WBC (Bld) 1.2 % 0-1 [facility] Bilirubin [Mass/Vol] 0.70 mg/dL 0.20-1.00 [facility] Comment on above: For patients on eltr ombopag therapy, use of Dimension [place] TBIL is not recommended. Chloride [Moles/Vol] 109 mmol/L 98-107 [facility] Eosinophils/100 WBC (Bld) 3.4 % 0-5 [facility] Glucose [Mass/Vol] 97 mg/dL 74-106 [facility] Hemoglobin (Bld) [Mass/Vol] 14.9 g/dL 12.0-15.0 [facility] Monocytes/100 WBC (Bld) 8.2 % 0-10 [facility] Neutrophils (Bld) [#/Vol] 4.4 10*3/uL 2.0-7.7 [facility] Neutrophils/100 WBC (Bld) 66.1 % 47-70 [facility] Potassium [Moles/Vol] 3.7 mmol/L 3.5-5.1 [facility] Protein [Mass/Vol] 7.5 g/dL 6.4-8.2 [facility] Sodium [Moles/Vol] 140 mmol/L 136-145 [facility] WBC (Bld) [#/Vol] 6.7 10*3/uL 4.4-11.0 [facility] Determination of erythrocyte mean corpuscular volume (MCV)Ordered By: Verónica Lopez on 09-23-2023 MCV (RBC) [Entitic vol] 92.2 fL 81-99 [facility] Erythrocyte distribution wid th ratioOrdered By: Verónica Lopez on 09-23-2023 Erythrocyte distribution width (RBC) [Ratio] 12.4 % 11.6-14.6 [facility] Erythrocyte distribution wid th standard deviationOrdered By: Verónica Lopez on 09-23-2023 Erythrocyte distribution width (RBC) [Entitic vol] 41.4 fL 35.1-43.9 [facility] Hematocrit Auto (Bld) [Volum e fraction]Ordered By: Verónica Lopez on 09-23-2023 Hematocrit (Bld) [Volume fraction] 44.7 % 37-47 [facility] Immature granulocytes/100 WB C Auto (Bld)Ordered By: Verónica Lopez on 09-23-2023 Immature granulocytes/100 WBC (Bld) 0.400 % 0.0-0.9 [facility] Comment on above: IG% - Immature Granu locytes (promyelocytes, myelocytes and metamyelocytes) > 1% indicates that a LEFT SHIFT is Present. Laboratory - Chemistry and C hemistry - challengeOrdered By: Verónica Lopez on 09-23-2023 Albumin/Globulin [Mass ratio] 1.1 {ratio} 0.9-2.4 [facility] ALP [Catalytic activity/Vol] 137 U/L 45-117 [facility] ALT [Catalytic activity/Vol] 29 U/L 13-56 [facility] CO2 [Moles/Vol] 27.0 mmol/L 21.0-32.0 [facility] Globulin (S) [Mass/Vol] 3.5 g/dL 2.2-4.2 [facility] Urea nitrogen/Creatinine [Mass ratio] 13.6 mg/mg 10-20 [facility] Laboratory - Hematology and Cell countsOrdered By: Verónica Lopez on 09-23-2023 MCH (RBC) [Entitic mass] 30.7 pg 27.0-32.0 [facility] MCHC (RBC) [Mass/Vol] 33.3 g/dL 32-36 [facility] Nucleated RBC/100 WBC (Bld) [Ratio] 0 % 0-5 [facility] Platelets (Bld) [#/Vol] 293 10*3/uL 150-450 [facility] No Panel InformationOrdered By: Verónica Lopez on 09-23-2023 Estimated Creatinine Clearance Calc 49.72 ml/min [facility] Estimated GFR (MDRD) Amer 58 mL/min >60 [facility] Comment on above: GFR Calc Estimated GFR (MDRD) Non-Af Amer 48 mL/min >60 [facility] Comment on above: Non- GFR Calc Platelet mean volume Doug-Ec ker (Bld) [Entitic vol]Ordered By: Verónica Lopez on 09-23-2023 Platelet mean volume (Bld) [Entitic vol] 9.7 fL 6.2-12.0 [facility] RBC Auto (Bld) [#/Vol]Ordere d By: Verónica Lopez on 09-23-2023 RBC (Bld) [#/Vol] 4.85 10*6/uL 4.2-5.4 [facility] Serum or plasma calcium giovayn urement (mass/volume)Ordered By: Verónica Lopez on 09-23-2023 Calcium [Mass/Vol] 9.8 mg/dL 8.5-10.1 [facility] Serum or plasma creatinine m easurement (mass/volume)Ordered By: Verónica Lopez on 09-23-2023 Creatinine [Mass/Vol] 1.18 mg/dL 0.55-1.02 [facility] Comment on above: The validity of the calculated GFR & GFRAA in patients over 70 years has not been determined. Clinical correlation is essential. Serum or plasma urea nitroge n measurement (mass/volume)Ordered By: Verónica Lopez on 09-23-2023 Urea nitrogen [Mass/Vol] 16 mg/dL 7-18 [facility] Thin prep Papanicolaou smear with manual screeningOrdered By: Verónica Lopez on 09-23-2023 Thin prep Papanicolaou smear with manual screening 4.0 g/dL 3.2-5.0 [facility] Thin prep Papanicolaou smear with manual screening 16 U/L 15-37 [facility] Thin prep Papanicolaou smear with manual screening 4 5-15 [facility] Basophil percentageOrdered B y: Ashli Rosado on 08-26-2023 Chloride [Moles/Vol] 105 mmol/L 98-107 [facility] Glucose [Mass/Vol] 83 mg/dL 74-106 [facility] Potassium [Moles/Vol] 3.8 mmol/L 3.5-5.1 [facility] Sodium [Moles/Vol] 140 mmol/L 136-145 [facility] Laboratory - Chemistry and C hemistry - challengeOrdered By: Ashli Rosado on 08-26-2023 CO2 [Moles/Vol] 30.0 mmol/L 21.0-32.0 [facility] Urea nitrogen/Creatinine [Mass ratio] 23.3 mg/mg 10-20 [facility] No Panel InformationOrdered By: Ashli Rosado on 08-26-2023 Estimated GFR (MDRD) Amer 60 mL/min >60 [facility] Comment on above: GFR Calc Estimated GFR (MDRD) Non-Af Amer 49 mL/min >60 [facility] Comment on above: Non- GFR Calc Serum or plasma calcium giovany urement (mass/volume)Ordered By: Ashli Rosado on 08-26-2023 Calcium [Mass/Vol] 9.7 mg/dL 8.5-10.1 [facility] Serum or plasma creatinine m easurement (mass/volume)Ordered By: Ashli Rosado on 08-26-2023 Creatinine [Mass/Vol] 1.16 mg/dL 0.55-1.02 [facility] Comment on above: The validity of the calculated GFR & GFRAA in patients over 70 years has not been determined. Clinical correlation is essential. Serum or plasma urea nitroge n measurement (mass/volume)Ordered By: Ashli Rosado on 08-26-2023 Urea nitrogen [Mass/Vol] 27 mg/dL 7-18 [facility] [place] Thin prep Papanicolaou smear with manual screeningOrdered By: Ashli Rosado on 08-26-2023 Thin prep Papanicolaou smear with manual screening 5 5-15 [facility] [place] Absolute lymphocyte countOrd ered By: Loan Dias on 07-29-2023 Lymphocytes Auto (Unsp spec) [#/Vol] 2.14 10*3/uL 0.83-4.51 [facility] [place] Basophil percentageOrdered B y: Loan Dias on 07-29-2023 Basophils/100 WBC (Bld) 1.0 % 0-1 [facility] [place] Bilirubin [Mass/Vol] 0.60 mg/dL 0.20-1.00 [facility] Comment on above: For patients on eltr ombopag therapy, use of Dimension [place] TBIL is not recommended. Chloride [Moles/Vol] 105 mmol/L 98-107 [facility] Cholesterol [Mass/Vol] 196 mg/dL <200 [facility] Comment on above: <200 mg/dL Desirable 200-240 mg/dL Borderline >240 mg/dL High Risk Eosinophils/100 WBC (Bld) 2.3 % 0-5 [facility] [place] Glucose [Mass/Vol] 98 mg/dL 74-106 [facility] Neutrophils (Bld) [#/Vol] 4.5 10*3/uL 2.0-7.7 [facility] [place] Neutrophils/100 WBC (Bld) 59.2 % 47-70 [facility] [place] Potassium [Moles/Vol] 3.8 mmol/L 3.5-5.1 [facility] Protein [Mass/Vol] 7.7 g/dL 6.4-8.2 [facility] Sodium [Moles/Vol] 139 mmol/L 136-145 [facility] Triglyceride [Mass/Vol] 128 mg/dL <199 [facility] [place] Comment on above: The drugs N-Acetylcy steine and Metamizole may falsely depress this assay.Serum Triglycerides Reference Interval Normal <150 mg/dL Borderline high 150 - 199 mg/dL High 200 - 499 mg/dL Very High > or = 500 mg/dL WBC (Bld) [#/Vol] 7.7 10*3/uL 4.4-11.0 [facility] Blood erythrocytes count (nu mber/volume)Ordered By: Loan Dias on 07-29-2023 RBC (Bld) [#/Vol] 5.29 10*6/uL 4.2-5.4 [facility] Blood hemoglobin measurement (mass/volume)Ordered By: Loan Dias on 07-29-2023 Hemoglobin (Bld) [Mass/Vol] 16.2 g/dL 12.0-15.0 [facility] [place] Blood lymphocytes/100 leukoc ytesOrdered By: Loan Dias on 07-29-2023 Lymphocytes/100 WBC (Bld) 27.9 % 19-41 [facility] [place] Blood monocytes/100 leukocyt esOrdered By: Loan Dias on 07-29-2023 Monocytes/100 WBC (Bld) 9.1 % 0-10 [facility] [place] Blood platelet mean volumeOr dered By: Loan Dias on 07-29-2023 Platelet mean volume (Bld) [Entitic vol] 9.7 fL 6.2-12.0 [facility] [place] Determination of erythrocyte mean corpuscular volume (MCV)Ordered By: Loan Dias on 07-29-2023 MCV (RBC) [Entitic vol] 93.6 fL 81-99 [facility] [place] Hematocrit Auto (Bld) [Volum e fraction]Ordered By: Loan Dias on 07-29-2023 Hematocrit (Bld) [Volume fraction] 49.5 % 37-47 [facility] [place] Laboratory - Chemistry and C hemistry - challengeOrdered By: Loan Dias on 07-29-2023 ALP [Catalytic activity/Vol] 131 U/L 45-117 [facility] [place] ALT [Catalytic activity/Vol] 60 U/L 13-56 [facility] [place] CO2 [Moles/Vol] 27.0 mmol/L 21.0-32.0 [facility] [place] Globulin (S) [Mass/Vol] 3.4 g/dL 2.2-4.2 [facility] [place] Urea nitrogen/Creatinine [Mass ratio] 13.9 mg/mg 10-20 [facility] [place] Laboratory - Hematology and Cell countsOrdered By: Loan Dias on 07-29-2023 Erythrocyte distribution width (RBC) [Entitic vol] 45.1 fL 35.1-43.9 [facility] [place] Erythrocyte distribution width (RBC) [Ratio] 13.2 % 11.6-14.6 [facility] [place] Immature granulocytes/100 WBC (Bld) 0.500 % 0.0-0.9 [facility] [place] Comment on above: IG% - Immature Granu locytes (promyelocytes, myelocytes and metamyelocytes) > 1% indicates that a LEFT SHIFT is Present. MCH (RBC) [Entitic mass] 30.6 pg 27.0-32.0 [facility] [place] Nucleated RBC/100 W[facility] (Bld) [Ratio] 0 [facility] [Mass/Vol]Or dered By: Loan Dias on 07-29-2023 MCHC (RBC) [Mass/Vol] 32.7 g/dL 32-36 [facility] No Panel InformationOrdered By: Loan Dias on 07-29-2023 Estimated GFR (MDRD) Amer 70 mL/min >60 [facility] [place] Comment on above: GFR Calc Estimated GFR (MDRD) Non-Af Amer 58 mL/min >60 [facility] [place] Comment on above: Non- GFR Calc Thyroid Stimulating Hormone (TSH) 3.71 uIU/mL 0.358-3.74 [facility] [place] Platelets bldOrdered By: Cirilo Dias on 07-29-2023 Platelets (Bld) [#/Vol] 361 10*3/uL 150-450 [facility] [place] Serum or plasma albumin giovany urement (mass/volume)Ordered By: Loan Dais on 07-29-2023 Albumin [Mass/Vol] 4.3 g/dL 3.2-5.0 [facility] Serum or plasma albumin/glob ulin mass ratioOrdered By: Loan Dias on 07-29-2023 Albumin/Globulin [Mass ratio] 1.3 {ratio} 0.9-2.4 [facility] [place] Serum or plasma calcium giovany urement (mass/volume)Ordered By: Loan Dias on 07-29-2023 Calcium [Mass/Vol] 9.9 mg/dL 8.5-10.1 [facility] Serum or plasma cholesterol in HDL measurement (mass/volume)Ordered By: Loan Disa on 07-29-2023 Cholesterol in HDL [Mass/Vol] 52 mg/dL >40 [facility] [place] Comment on above: The drugs N-Acetylcy steine and Metamizole may falsely depress this assay. Reference Range HDL <40 mg/dL Low HDL Cholesterol HDL >or= 60 mg/dL High HDL Cholesterol Serum or plasma cholesterol in VLDL measurement (mass/volume)Ordered By: Loan Dias on 07-29-2023 Cholesterol in VLDL [Mass/Vol] 26 mg/dL 5-40 [facility] [place] Serum or plasma creatinine m easurement (mass/volume)Ordered By: Loan Dias on 07-29-2023 Creatinine [Mass/Vol] 1.01 mg/dL 0.55-1.02 [facility] Comment on above: The validity of the calculated GFR & GFRAA in patients over 70 years has not been determined. Clinical correlation is essential. Serum or plasma low density lipoprotein (LDL) cholesterol measurement (mass/volume)Ordered By: Loan Dias on 07-29-2023 Cholesterol in LDL [Mass/Vol] 118 mg/dL 0-130 [facility] [place] Serum or plasma urea nitroge n measurement (mass/volume)Ordered By: Loan Dias on 07-29-2023 Urea nitrogen [Mass/Vol] 14 mg/dL 7-18 [facility] [place] Thin prep Papanicolaou smear with manual screeningOrdered By: Loan Dias on 07-29-2023 Thin prep Papanicolaou smear with manual screening 33 U/L 15-37 [facility] [place] Thin prep Papanicolaou smear with manual screening 7 5-15 [facility] [place] Basophil percentageOrdered B y: Dia Tobin on 03-14-2023 Creatinine [Mass/Vol] 1.2 mg/dL 0.55-1.02 [facility] Laboratory - Chemistry and C hemistry - challengeOrdered By: Dia Tobin on 03-14-2023 GFR/1.73 sq M.predicted among non-blacks MDRD (S/P/Bld) [Vol rate/Area] 49.0000 mL/min/{1.73_m2} >60 [facility] [place] Absolute lymphocyte countOrd ered By: Verónica Lopez on 11-05-2022 Lymphocytes Auto (Unsp spec) [#/Vol] 1.50 10*3/uL 0.83-4.51 [facility] [place] Basophil percentageOrdered B y: Verónica Lopez on 11-05-2022 Basophils/100 WBC (Bld) 0.9 % 0-1 [facility] [place] Bilirubin [Mass/Vol] 0.40 mg/dL 0.20-1.00 [facility] Comment on above: For patients on eltr ombopag therapy, use of Dimension [place] TBIL is not recommended. Chloride [Moles/Vol] 108 mmol/L 98-107 [facility] Eosinophils/100 WBC (Bld) 2.5 % 0-5 [facility] [place] Glucose [Mass/Vol] 104 mg/dL 74-106 [facility] Comment on above: Fasting Glucose resu lt from 100 to 125 mg/dL suggests IMPAIRED HOMEOSTASIS per A.D.A. criteria. Neutrophils (Bld) [#/Vol] 4.5 10*3/uL 2.0-7.7 [facility] [place] Neutrophils/100 WBC (Bld) 66.8 % 47-70 [facility] [place] Potassium [Moles/Vol] 3.8 mmol/L 3.5-5.1 [facility] Protein [Mass/Vol] 7.4 g/dL 6.4-8.2 [facility] Sodium [Moles/Vol] 143 mmol/L 136-145 [facility] WBC (Bld) [#/Vol] 6.8 10*3/uL 4.4-11.0 [facility] Blood erythrocytes count (nu mber/volume)Ordered By: Verónica Lopez on 11-05-2022 RBC (Bld) [#/Vol] 5.04 10*6/uL 4.2-5.4 [facility] Blood hemoglobin measurement (mass/volume)Ordered By: Verónica Lopez on 11-05-2022 Hemoglobin (Bld) [Mass/Vol] 15.5 g/dL 12.0-15.0 [facility] [place] Blood lymphocytes/100 leukoc ytesOrdered By: Verónica Lopez on 11-05-2022 Lymphocytes/100 WBC (Bld) 22.2 % 19-41 [facility] [place] Blood monocytes/100 leukocyt esOrdered By: Verónica Lopez on 11-05-2022 Monocytes/100 WBC (Bld) 7.0 % 0-10 [facility] [place] Blood platelet mean volumeOr dered By: Verónica Lopez on 11-05-2022 Platelet mean volume (Bld) [Entitic vol] 9.3 fL 6.2-12.0 [facility] [place] Determination of erythrocyte mean corpuscular volume (MCV)Ordered By: Verónica Lopez on 11-05-2022 MCV (RBC) [Entitic vol] 93.5 fL 81-99 [facility] [place] Hematocrit Auto (Bld) [Volum e fraction]Ordered By: Verónica Lopez on 11-05-2022 Hematocrit (Bld) [Volume fraction] 47.1 % 37-47 [facility] [place] Laboratory - Chemistry and C hemistry - challengeOrdered By: Verónica Lopez on 11-05-2022 ALP [Catalytic activity/Vol] 108 U/L 45-117 [facility] [place] ALT [Catalytic activity/Vol] 26 U/L 13-56 [facility] [place] CO2 [Moles/Vol] 28.0 mmol/L 21.0-32.0 [facility] [place] Globulin (S) [Mass/Vol] 3.2 g/dL 2.2-4.2 [facility] [place] Urea nitrogen/Creatinine [Mass ratio] 20.2 mg/mg 10-20 [facility] [place] Laboratory - Hematology and Cell countsOrdered By: Verónica Lopez on 11-05-2022 Erythrocyte distribution width (RBC) [Entitic vol] 44.3 fL 35.1-43.9 [facility] [place] Erythrocyte distribution width (RBC) [Ratio] 13.1 % 11.6-14.6 [facility] [place] Immature granulocytes/100 WBC (Bld) 0.600 % 0.0-0.9 [facility] [place] Comment on above: IG% - Immature Granu locytes (promyelocytes, myelocytes and metamyelocytes) > 1% indicates that a LEFT SHIFT is Present. MCH (RBC) [Entitic mass] 30.8 pg 27.0-32.0 [facility] [place] Nucleated RBC/100 WBC (Bld) [Ratio] 0 % 0-5 [facility] [place] MCHC Auto (RBC) [Mass/Vol]Or dered By: Verónica Lopez on 11-05-2022 MCHC (RBC) [Mass/Vol] 32.9 g/dL 32-36 [facility] No Panel InformationOrdered By: Verónica Lopez on 11-05-2022 Estimated Creatinine Clearance Calc 47.38 ml/min [facility] [place] Estimated GFR (MDRD) Amer 76 mL/min >60 [facility] [place] Comment on above: GFR Calc Estimated GFR (MDRD) Non-Af Amer 63 mL/min >60 [facility] [place] Comment on above: Non- GFR Calc Platelets bldOrdered By: Erica Lopez on 11-05-2022 Platelets (Bld) [#/Vol] 318 10*3/uL 150-450 [facility] [place] Serum or plasma albumin giovany urement (mass/volume)Ordered By: Verónica Lopez on 11-05-2022 Albumin [Mass/Vol] 4.2 g/dL 3.2-5.0 [facility] Serum or plasma albumin/glob ulin mass ratioOrdered By: Verónica Lopez on 11-05-2022 Albumin/Globulin [Mass ratio] 1.3 {ratio} 0.9-2.4 [facility] [place] Serum or plasma calcium giovany urement (mass/volume)Ordered By: Verónica Lopez on 11-05-2022 Calcium [Mass/Vol] 9.6 mg/dL 8.5-10.1 [facility] Serum or plasma creatinine m easurement (mass/volume)Ordered By: Verónica Lopez on 11-05-2022 Creatinine [Mass/Vol] 0.94 mg/dL 0.55-1.02 [facility] Comment on above: The validity of the calculated GFR & GFRAA in patients over 70 years has not been determined. Clinical correlation is essential. Serum or plasma urea nitroge n measurement (mass/volume)Ordered By: Verónica Lopez on 11-05-2022 Urea nitrogen [Mass/Vol] 19 mg/dL 7-18 [facility] [place] Thin prep Papanicolaou smear with manual screeningOrdered By: Verónica Lopez on 11-05-2022 Thin prep Papanicolaou smear with manual screening 18 U/L 15-37 [facility] [place] Thin prep Papanicolaou smear with manual screening 7 5-15 [facility] [place] Absolute lymphocyte counton 04-25-2022 Lymphocytes Auto (Unsp spec) [#/Vol] 1.41 10*3/uL 0.83-4.51 [facility] [place] Work Phone: Basophil percentageon 2021 Basophils/100 WBC (Bld) 1.0 % 0-1 [facility] [place] Work Phone: Bilirubin [Mass/Vol] 0.40 mg/dL 0.20-1.00 [facility] Work Phone: Comment on above: For patients on eltr ombopag therapy, use of Dimension [place] TBIL is not recommended. Chloride [Moles/Vol] 110 mmol/L 98-107 [facility]: Eosinophils/100 WBC (Bld) 3.6 % 0-5 [facility] [place] Work Phone: Glucose [Mass/Vol] 93 mg/dL 74-106 [facility] Work Phone: Neutrophils (Bld) [#/Vol] 3.6 10*3/uL 2.0-7.7 [facility] [place] Work Phone: Neutrophils/100 WBC (Bld) 62.0 % 47-70 [facility] [place] Work Phone: Potassium [Moles/Vol] 4.0 mmol/L 3.5-5.1 [facility] Work Phone: Protein [Mass/Vol] 6.9 g/dL 6.4-8.2 [facility] Work [facility]: Sodium [Moles/Vol] 145 mmol/L 136-145 [facility] Work Phone: WBC (Bld) [#/Vol] 5.8 10*3/uL 4.4-11.0 [facility] Work Phone: Blood erythrocytes count (nu mber/volume)on 04-25-2022 RBC (Bld) [#/Vol] 4.52 10*6/uL 4.2-5.4 [facility] Work Phone: Blood hemoglobin measurement (mass/volume)on 04-25-2022 Hemoglobin (Bld) [Mass/Vol] 14.2 g/dL 12.0-15.0 [facility] [place] Work Phone: Blood lymphocytes/100 leukoc yteson 04-25-2022 Lymphocytes/100 WBC (Bld) 24.3 % 19-41 [facility] [place] Work Phone: Blood monocytes/100 leukocyt eson 04-25-2022 Monocytes/100 WBC (Bld) 8.1 % 0-10 [facility] [place] Work Phone: [phone] Blood platelet mean volumeon 04-25-2022 Platelet mean volume (Bld) [Entitic vol] 9.2 fL 6.2-12.0 [facility] [place] Work Phone: [phone] Determination of erythrocyte mean corpuscular volume (MCV)on 04-25-2022 MCV (RBC) [Entitic vol] 96.9 fL 81-99 [facility] [place] Work Phone: Hematocrit Auto (Bld) [Volum e fraction]on 04-25-2022 Hematocrit (Bld) [Volume fraction] 43.8 % 37-47 [facility] [place] Work Phone: [phone] Laboratory - Chemistry and C hemistry - challengeon 04-25-2022 ALP [Catalytic activity/Vol] 115 U/L 45-117 [facility] [place] Work Phone: ALT [Catalytic activity/Vol] 29 U/L 13-56 [facility] [place] Work Phone: CO2 [Moles/Vol] 31.0 mmol/L 21.0-32.0 [facility] [place] Work Phone: [phone] Globulin (S) [Mass/Vol] 3.2 g/dL 2.2-4.2 [facility] [place] Work Phone: [phone] Urea nitrogen/Creatinine [Mass ratio] 17.5 mg/mg 10-20 [facility] [place] Work Phone: [phone] Laboratory - Hematology and Cell countson 04-25-2022 Erythrocyte distribution width (RBC) [Entitic vol] 47.6 fL 35.1-43.9 [facility] [place] Work Phone: [phone] Erythrocyte distribution width (RBC) [Ratio] 13.3 % 11.6-14.6 [facility] [place] Work Phone: Immature granulocytes/100 WBC (Bld) 1.000 % 0.0-0.9 [facility] [place] Work Phone: [phone] Comment on above: IG% - Immature Granu locytes (promyelocytes, myelocytes and metamyelocytes) > 1% indicates that a LEFT SHIFT is Present. MCH (RBC) [Entitic mass] 31.4 pg 27.0-32.0 [facility] [place] Work Phone: Nucleated RBC/100 WBC (Bld) [Ratio] 0 % 0-5 [facility] [place] Work Phone: MCHC Auto (RBC) [Mass/Vol]on 04-25-2022 MCHC (RBC) [Mass/Vol] 32.4 g/dL 32-36 [facility] Work Phone: No Panel Informationon 04-25 Estimated Creatinine Clearance Calc 43.84 ml/min [facility] [place] Work Phone: Estimated GFR (MDRD) Amer 69 mL/min >60 [facility] [place] Work Phone: Comment on above: GFR Calc Estimated GFR (MDRD) Non-Af Amer 57 mL/min >60 [facility] [place] Work Phone: Comment on above: Non- GFR Calc Platelets bldon 04-25-2022 Platelets (Bld) [#/Vol] 250 10*3/uL 150-450 [facility] [place] Work Phone: Serum or plasma albumin giovany urement (mass/volume)on 04-25-2022 Albumin [Mass/Vol] 3.7 g/dL 3.2-5.0 [facility] Work Phone: Serum or plasma albumin/glob ulin mass ratioon 04-25-2022 Albumin/Globulin [Mass ratio] 1.2 {ratio} 0.9-2.4 [facility] [place] Work Phone: Serum or plasma calcium giovany urement (mass/volume)on 04-25-2022 Calcium [Mass/Vol] 9.6 mg/dL 8.5-10.1 [facility] Work Phone: Serum or plasma creatinine m easurement (mass/volume)on 04-25-2022 Creatinine [Mass/Vol] 1.03 mg/dL 0.55-1.02 [facility] Work Phone: [phone] Comment on above: The validity of the calculated GFR & GFRAA in patients over 70 years has not been determined. Clinical correlation is essential. Serum or plasma urea nitroge n measurement (mass/volume)on 04-25-2022 Urea nitrogen [Mass/Vol] 18 mg/dL 7-18 [facility] [place] Work Phone: Thin prep Papanicolaou smear with manual screeningon 04-25-2022 Thin prep Papanicolaou smear with manual screening 13 U/L 15-37 [facility] [place] Work Phone: Thin prep Papanicolaou smear with manual screening 4 5-15 [facility] [place] Work Phone: Absolute lymphocyte counton 01-21-2022 Lymphocytes Auto (Unsp spec) [#/Vol] 1.05 10*3/uL 0.83-4.51 [facility] [place] Work Phone: Basophil percentageon 2021 Basophils/100 WBC (Bld) 0.9 % 0-1 [facility] [place] Work Phone: Chloride [Moles/Vol] 111 mmol/L 98-107 [facility] Work Phone: Eosinophils/100 WBC (Bld) 2.1 % 0-5 [facility] [place] Work Phone: Glucose [Mass/Vol] 98 mg/dL 74-106 [facility] Work Phone: Neutrophils (Bld) [#/Vol] 3.7 10*3/uL 2.0-7.7 [facility] [place] Work Phone: Neutrophils/100 WBC (Bld) 69.1 % 47-70 [facility] [place] Work Phone: Potassium [Moles/Vol] 3.8 mmol/L 3.5-5.1 [facility] Work Phone: Sodium [Moles/Vol] 143 mmol/L 136-145 [facility] Work Phone: WBC (Bld) [#/Vol] 5.3 10*3/uL 4.4-11.0 [facility] Work Phone: Blood erythrocytes count (nu mber/volume)on 01-21-2022 RBC (Bld) [#/Vol] 4.99 10*6/uL 4.2-5.4 [facility] Work Phone: Blood hemoglobin measurement (mass/volume)on 01-21-2022 Hemoglobin (Bld) [Mass/Vol] 15.2 g/dL 12.0-15.0 [facility] [place] Work Phone: Blood lymphocytes/100 leukoc yteson 01-21-2022 Lymphocytes/100 WBC (Bld) 19.8 % 19-41 [facility] [place] Work Phone: Blood monocytes/100 leukocyt eson 01-21-2022 Monocytes/100 WBC (Bld) 7.7 % 0-10 [facility] [place] Work Phone: Blood platelet mean volumeon 01-21-2022 Platelet mean volume (Bld) [Entitic vol] 9.4 fL 6.2-12.0 [facility] [place] Work Phone: Determination of erythrocyte mean corpuscular volume (MCV)on 01-21-2022 MCV (RBC) [Entitic vol] 93.2 fL 81-99 [facility] [place] Work Phone: Hematocrit Auto (Bld) [Volum e fraction]on 01-21-2022 Hematocrit (Bld) [Volume fraction] 46.5 % 37-47 [facility] [place] Work Phone: Laboratory - Chemistry and C hemistry - challengeon 01-21-2022 CO2 [Moles/Vol] 26.0 mmol/L 21.0-32.0 [facility] [place] Work Phone: Urea nitrogen/Creatinine [Mass ratio] 15.0 mg/mg 10-20 [facility] [place] Work Phone: Laboratory - Hematology and Cell countson 01-21-2022 Erythrocyte distribution width (RBC) [Entitic vol] 43.1 fL 35.1-43.9 [facility] [place] Work Phone: Erythrocyte distribution width (RBC) [Ratio] 12.5 % 11.6-14.6 [facility] [place] Work Phone: Immature granulocytes/100 WBC (Bld) 0.400 % 0.0-0.9 [facility] [place] Work Phone: Comment on above: IG% - Immature Granu locytes (promyelocytes, myelocytes and metamyelocytes) > 1% indicates that a LEFT SHIFT is Present. MCH (RBC) [Entitic mass] 30.5 pg 27.0-32.0 [facility] [place] Work Phone: Nucleated RBC/100 WBC (Bld) [Ratio] 0 % 0-5 [facility] [place] Work Phone: MCHC Auto (RBC) [Mass/Vol]on 01-21-2022 MCHC (RBC) [Mass/Vol] 32.7 g/dL 32-36 [facility] Work Phone: No Panel Informationon 01-21 Troponin I High Sensitivity 4 pg/mL 3.0-54.0 [facility] [place] Work Phone: Comment on above: Please Note: New Macy t Units and Gender Specific Reference Ranges. For more information see Policy Stat Procedure [place] High Sensitivity Troponin (TNIH) and attachments. Estimated Creatinine Clearance Calc 41.19 ml/min [facility] [place] Work Phone: Estimated GFR (MDRD) Amer 71 mL/min >60 [facility] [place] Work Phone: Comment on above: GFR Calc Estimated GFR (MDRD) Non-Af Amer 59 mL/min >60 [facility] [place] Work Phone: Comment on above: Non- GFR Calc Platelets bldon 01-21-2022 Platelets (Bld) [#/Vol] 272 10*3/uL 150-450 [facility] [place] Work Phone: Serum or plasma calcium giovany urement (mass/volume)on 01-21-2022 Calcium [Mass/Vol] 9.6 mg/dL 8.5-10.1 [facility] Work Phone: Serum or plasma creatinine m easurement (mass/volume)on 01-21-2022 Creatinine [Mass/Vol] 1.00 mg/dL 0.55-1.02 [facility] Work Phone: Comment on above: The validity of the calculated GFR & GFRAA in patients over 70 years has not been determined. Clinical correlation is essential. Serum or plasma urea nitroge n measurement (mass/volume)on 01-21-2022 Urea nitrogen [Mass/Vol] 15 mg/dL 7-18 [facility] [place] Work Phone: Thin prep Papanicolaou smear with manual screeningon 01-21-2022 Thin prep Papanicolaou smear with manual screening 6 5-15 [facility] [place] Work Phone: [phone] Absolute lymphocyte counton 10-18-2021 Lymphocytes Auto (Unsp spec) [#/Vol] 1.17 10*3/uL 0.83-4.51 [facility] [place] Work Phone: [phone] Basophil percentageon 2021 Basophils/100 WBC (Bld) 1.2 % 0-1 [facility] [place] Work Phone: [phone] Bilirubin [Mass/Vol] 0.60 mg/dL 0.20-1.00 [facility] Work Phone: Comment on above: For patients on eltr ombopag therapy, use of Dimension [place] TBIL is not recommended. Chloride [Moles/Vol] 108 mmol/L 98-107 [facility] Work Phone: Eosinophils/100 WBC (Bld) 2.8 % 0-5 [facility] [place] Work Phone: [phone] Glucose [Mass/Vol] 93 mg/dL 74-106 [facility] Work Phone: Neutrophils (Bld) [#/Vol] 3.1 10*3/uL 2.0-7.7 [facility] [place] Work Phone: Neutrophils/100 WBC (Bld) 62.0 % 47-70 [facility] [place] Work Phone: [phone] Potassium [Moles/Vol] 4.0 mmol/L 3.5-5.[address] Work Phone: Protein [Mass/Vol] 6.7 g/dL 6.4-8.2 [facility]: Sodium [Moles/Vol] 142 mmol/L 136-145 [facility] Work Phone: WBC (Bld) [#/Vol] 4.9 10*3/uL 4.4-11.0 [facility] Work Phone: Blood erythrocytes count (nu mber/volume)on 10-18-2021 RBC (Bld) [#/Vol] 4.59 10*6/uL 4.2-5.4 [facility] Work Phone: [phone] Blood hemoglobin measurement (mass/volume)on 10-18-2021 Hemoglobin (Bld) [Mass/Vol] 14.1 g/dL 12.0-15.0 [facility] [place] Work Phone: Blood lymphocytes/100 leukoc yteson 10-18-2021 Lymphocytes/100 WBC (Bld) 23.8 % 19-41 [facility] [place] Work Phone: Blood monocytes/100 leukocyt eson 10-18-2021 Monocytes/100 WBC (Bld) 9.8 % 0-10 [facility] [place] Work Phone: Blood platelet mean volumeon 10-18-2021 Platelet mean volume (Bld) [Entitic vol] 9.1 fL 6.2-12.0 [facility] [place] Work Phone: Determination of erythrocyte mean corpuscular volume (MCV)on 10-18-2021 MCV (RBC) [Entitic vol] 91.9 fL 81-99 [facility] [place] Work Phone: Hematocrit Auto (Bld) [Volum e fraction]on 10-18-2021 Hematocrit (Bld) [Volume fraction] 42.2 % 37-47 [facility] [place] Work Phone: [phone] Laboratory - Chemistry and C hemistry - challengeon 10-18-2021 ALP [Catalytic activity/Vol] 109 U/L 45-117 [facility] [place] Work Phone: ALT [Catalytic activity/Vol] 26 U/L 13-56 [facility] [place] Work Phone: CO2 [Moles/Vol] 27.0 mmol/L 21.0-32.0 [facility] [place] Work Phone: [phone] Globulin (S) [Mass/Vol] 3.0 g/dL 2.2-4.2 [facility] [place] Work Phone: [phone] Urea nitrogen/Creatinine [Mass ratio] 21.4 mg/mg 10-20 [facility] [place] Work Phone: [phone] Laboratory - Hematology and Cell countson 10-18-2021 Erythrocyte distribution width (RBC) [Entitic vol] 46.1 fL 35.1-43.9 [facility] [place] Work Phone: [phone] Erythrocyte distribution width (RBC) [Ratio] 13.6 % 11.6-14.6 [facility] [place] Work Phone: [phone] Immature granulocytes/100 WBC (Bld) 0.400 % 0.0-0.9 [facility] [place] Work Phone: [phone] Comment on above: IG% - Immature Granu locytes (promyelocytes, myelocytes and metamyelocytes) > 1% indicates that a LEFT SHIFT is Present. MCH (RBC) [Entitic mass] 30.7 pg 27.0-32.0 [facility] [place] Work Phone: [phone] Nucleated RBC/100 WBC (Bld) [Ratio] 0 % 0-5 [facility] [place] Work Phone: [phone] MCHC Auto (RBC) [Mass/Vol]on 10-18-2021 MCHC (RBC) [Mass/Vol] 33.4 g/dL 32-36 [facility] Work Phone: [phone] No Panel Informationon 10-18 Estimated Creatinine Clearance Calc 48.04 ml/min [facility] [place] Work Phone: [phone] Estimated GFR (MDRD) Amer 77 mL/min >60 [facility] [place] Work Phone: Comment on above: GFR Calc Estimated GFR (MDRD) Non-Af Amer 63 mL/min >60 [facility] [place] Work Phone: Comment on above: Non- GFR Calc Platelets bldon 10-18-2021 Platelets (Bld) [#/Vol] 247 10*3/uL 150-450 [facility] [place] Work Phone: Serum or plasma albumin giovany urement (mass/volume)on 10-18-2021 Albumin [Mass/Vol] 3.7 g/dL 3.2-5.0 [facility] Work Phone: Serum or plasma albumin/glob ulin mass ratioon 10-18-2021 Albumin/Globulin [Mass ratio] 1.2 {ratio} 0.9-2.4 [facility] [place] Work Phone: Serum or plasma calcium giovany urement (mass/volume)on 10-18-2021 Calcium [Mass/Vol] 9.4 mg/dL 8.5-10.1 [facility] Work Phone: Serum or plasma creatinine m easurement (mass/volume)on 10-18-2021 Creatinine [Mass/Vol] 0.94 mg/dL 0.55-1.02 [facility] Work Phone: Comment on above: The validity of the calculated GFR & GFRAA in patients over 70 years has not been determined. Clinical correlation is essential. Serum or plasma urea nitroge n measurement (mass/volume)on 10-18-2021 Urea nitrogen [Mass/Vol] 20 mg/dL 7-18 [facility] [place] Work Phone: Thin prep Papanicolaou smear with manual screeningon 10-18-2021 Thin prep Papanicolaou smear with manual screening 16 U/L 15-37 [facility] [place] Work Phone: Thin prep Papanicolaou smear with manual screening 7 5-15 [facility] [place] Work Phone: CBCon 04-24-2021 Absolute nRBC <0.01 Normal <0.01 [facility] Comment on above: Performed By: #### C RP, RFP, CBC, FERR #### [address] [place] [address] Erythrocyte distribution width (RBC) [Ratio] 13.3 % Normal 11.5-15.0 [facility] Comment on above: Performed By: #### C RP, RFP, CBC, FERR #### [address] [place] [address] Hematocrit (Bld) [Volume fraction] 37.7 % Normal 36.0-46.0 [facility] Comment on above: Performed By: #### C RP, RFP, CBC, FERR #### [address] [place] [address] Hemoglobin (Bld) [Mass/Vol] 12.5 g/dL Normal 11.5-15.5 [facility] Comment on above: Performed By: #### C RP, RFP, CBC, FERR #### [address] [place] [address] MCH 30.4 pG Normal 26.0-34.0 [facility] Comment on above: Performed By: #### C RP, RFP, CBC, FERR #### [address] [place] [address] MCHC (RBC) [Mass/Vol] 33.2 g/dL Normal 30.5-36.0 [facility] Comment on above: Performed By: #### C RP, RFP, CBC, FERR #### [address] [place] [address] MCV (RBC) [Entitic vol] 91.7 fL Normal 80.0-100.0 [facility] Comment on above: Performed By: #### C RP, RFP, CBC, FERR #### [address] [place] [address] Platelet mean volume (Bld) [Entitic vol] 9.5 fL Normal 9.0-12.7 [facility] Comment on above: Performed By: #### C RP, RFP, CBC, FERR #### [facility] [address] [facility] [place] [address] Platelets (Bld) [#/Vol] 402 10*3/uL High 150-400 [facility] Comment on above: Performed By: #### C RP, RFP, CBC, FERR #### [address] [place] [address] RBC (Bld) [#/Vol] 4.11 10*6/uL Normal 3.90-5.20 [facility] Comment on above: Performed By: #### C RP, RFP, CBC, FERR #### [facility] [address] [facility] [place] [address] WBC (Bld) [#/Vol] 7.66 10*3/uL Normal 3.70-11.00 [facility] Comment on above: Performed By: #### C RP, RFP, CBC, FERR #### [address] [place] [address] CNDSon 04-24-2021 CNDS HNO ID: [id number] Author: Ty Pulido MD Service: General Internal [...] Pulido MD Primary Care Provider: Loan Dias APRN.DRAW PRESS OPERATOR My Medical Team Members: Treatment Team: Attending [...] No pending results Discharge Disposition Discharge Disposition: [facility] Facility - Less than 30 Days Activity When You Leave the Hospital Resume pre-hospital activity Diet Instructions Resume your pre-hospital diet Follow Up Appointments Follow-Up Appointment When: In 2 weeks Patient/Parents to call for appointment?: Yes Loan Dias APRN.DRAW PRESS OPERATOR [phone] [address] [place] [address] PCP Requested Referral Additional Provider to Provider [...] the time of discharge, eventually discharged to [facility] facility Treatment Team: Attending Provider: Ty Pulido MD Consulting: Rolo Oates MD Consulting: Ty Pulido MD Transitions of Care Critical Issues: Discharged on 2 L nasal cannula oxygen LABS AND PROCEDURES PENDING AT DISCHARGE: No pending results. FOLLOW-UP APPOINTMENTS ALREADY SCHEDULED WITH A [facility] PROVIDER: No future appointments. ALLERGIES Allergen [...] tabl (more content not included)... [facility] CONSULT PROGon 04-24-2021 CONSULT PROG HNO ID: [id number] Author: Rosendo Landin V, MD Service: Infectious [...] April 24, 2021 12:54 PM [facility] NURSING PROGon 04-24-2021 NURSING PROG HNO ID: [id number] Author: Shawnee Barrett RN Service: ? Author Type: Registered Nurse Type: Nursing Progress Note Filed: 04/24/2021 4:20 PM Note Text: Nursing Progress Note Patient Name: Bo Jacob Patient Location: [id number] Daily Note: 0730: Assuming care of pt. Pt is resting in bed, daughter is at bedside.Pt is AANDOx3, 2L NC in place. Monitor maintained: SR. Port to left chest dressing DANDI, blood return present. Assessment as charted. 1400: Dr. Pulido in to see pt-OK to D/C to [facility] today at 4pm 1500: Port deaccessed. Monitor removed. Pt dressed and belongings packed. 1615: Ambulance here with stretcher to transport pt. Chart copied and sent with pt-report called to [facility]. This note was completed by: Shawnee Barrett [facility] NURSING PROG HNO ID: [id number] Author: Cherelle Howe, BERNABE Service: Nursing Author Type: Registered Nurse Type: Nursing Progress Note Filed: 04/24/2021 3:10 AM Note Text: Nursing Progress Note Patient Name: Bo Jacob Patient Location: [id number] 2 Daily Note: 1929 Assumed care of [...] note was completed by: Cherelle Howe Normal [facility] Renal Function Panelon 04-24 Albumin [Mass/Vol] 3.5 g/dL Low 4.0-4.[address] [facility] Comment on above: Performed By: #### C RP, RFP, CBC, FERR #### [facility] [address] [place] [address] Anion gap [Moles/Vol] 7 mmol/L Normal 0-15 Mar [facility] Comment on above: Performed By: #### C RP, RFP, CBC, FERR #### [place] [id number] [place] [address] Calcium [Mass/Vol] 8.8 mg/dL Normal 8.5-10.[address] [facility] Comment on above: Result Comment: Felipe mmended reference range provided for this age range is published by the instrument solar applications development engineer. Adult reference ranges have been verified. Performed By: #### C RP, RFP, CBC, FERR #### [facility] [address] [place] [address] Chloride [Moles/Vol] 105 mmol/L Normal 97-105 [facility] Comment on above: Performed By: #### C RP, RFP, CBC, FERR #### [facility] [address] [place] [address] CO2 [Moles/Vol] 25 mmol/L Normal 22-30 [facility] Comment on above: Performed By: #### C RP, RFP, CBC, FERR #### [place] [id number] [place] [address] Creatinine [Mass/Vol] 0.76 mg/dL Normal 0.58-0.96 Mar [facility] Comment on above: Performed By: #### C RP, RFP, CBC, FERR #### [address] [place] [address] eGFR- Amer. >60 Normal >[address] [facility] Comment on above: Performed By: #### C RP, RFP, CBC, FERR #### [address] [place] [address] eGFR-All Other Races >60 Normal >60 [facility] Comment on above: Result Comment: [...] #### C RP, RFP, CBC, FERR #### [address] [place] [address] Glucose [Mass/Vol] 95 mg/dL Normal 74-[address] [facility] Comment on above: Performed By: #### C RP, RFP, CBC, FERR #### [address] [place] [address] Phosphate [Mass/Vol] 2.6 mg/dL Normal 2.5-4.5 [facility] Comment on above: Performed By: #### C RP, RFP, CBC, FERR #### [address] [place] [address] Potassium [Moles/Vol] 3.6 mmol/L Low 3.7-5.1 [facility] Comment on above: Performed By: #### C RP, RFP, CBC, FERR #### [address] [place] [address] Sodium [Moles/Vol] 137 mmol/L Normal 136-[address] [facility] Comment on above: Performed By: #### C RP, RFP, CBC, FERR #### [facility] [address] [facility] [place] [address] Urea nitrogen [Mass/Vol] 18 mg/dL Normal 7-21 [facility] Comment on above: Result Comment: Felipe mmended reference range provided for this age range is published by the instrument solar applications development engineer. Adult reference ranges have been verified. Performed By: #### C RP, RFP, CBC, FERR #### [facility] [address] [place] [address] THERAPY NTon 04-24-2021 THERAPY NT HNO ID: [id number] Author: Aj Lara PTA Service: Physical Therapy Author Type: Food Service Team Member Type: Therapy (PT/OT/Speech/Resp) Filed: 04/24/2021 2:37 PM Note Text: Attestation signed by Ashwini Diallo PT at 04/25/2021 6:33 AM I reviewed and agree with the documentation corresponding to this therapy visit. SIGNATURE: Ashwini Diallo PT DATE: April 25, 2021 TIME: 6:33 AM PHYSICAL THERAPY MISSED VISIT SERVICE DATE: 04/24/2021 SERVICE TIME: 1435 to 1435 ROOM: [place] [address] Attempted Treatment. Patient not seen due to Sleeping. SIGNATURE: Aj Lara PTA PATIENT NAME: Bo Jacob DATE: April 24, 2021 TIME: 2:35 PM Per RN pt resting, this AM and pt is being DCd today at 1600. [facility] THERAPY NT HNO ID: [id number] Author: Aj Lara PTA Service: Physical Therapy Author Type: Food Service Team Member Type: Therapy (PT/OT/Speech/Resp) Filed: 04/24/2021 8:12 AM Note Text: Attestation signed by Ashwini Diallo PT at 04/24/2021 9:24 AM I reviewed and agree with the documentation corresponding to this therapy visit. SIGNATURE: Ashwini Diallo PT DATE: April 24, 2021 TIME: 9:24 AM PHYSICAL THERAPY MISSED VISIT SERVICE DATE: 04/24/2021 SERVICE TIME: 0800 to 0800 ROOM: [place] [address] Attempted Treatment. Patient not seen due to [...] del rosario. Will check back in PM. [facility] C-Reactive Proteinon 021 C-Reactive Protein 1.4 mg/dL High <0.[address] [facility] Comment on above: Performed By: #### C RP, RFP, CBC, FERR #### [facility] [address] [facility] [place] [address] CBCon 04-23-2021 Absolute nRBC <0.01 Normal <0.01 [facility] Comment on above: Performed By: #### C RP, RFP, CBC, FERR #### [address] [place] [address] Erythrocyte distribution width (RBC) [Ratio] 13.3 % Normal 11.5-15.0 [facility] Comment on above: Performed By: #### C RP, RFP, CBC, FERR #### [address] [place] [address] Hematocrit (Bld) [Volume fraction] 36.4 % Normal 36.0-46.0 [facility] Comment on above: Performed By: #### C RP, RFP, CBC, FERR #### [address] [place] [address] Hemoglobin (Bld) [Mass/Vol] 12.1 g/dL Normal 11.5-15.5 [facility] Comment on above: Performed By: #### C RP, RFP, CBC, FERR #### [address] [place] [address] MCH 30.3 pG Normal 26.0-34.0 [facility] Comment on above: Performed By: #### C RP, RFP, CBC, FERR #### [address] [place] [address] MCHC (RBC) [Mass/Vol] 33.2 g/dL Normal 30.5-36.0 [facility] Comment on above: Performed By: #### C RP, RFP, CBC, FERR #### [address] [place] [address] MCV (RBC) [Entitic vol] 91.0 fL Normal 80.0-100.0 [facility] Comment on above: Performed By: #### C RP, RFP, CBC, FERR #### [address] [place] [address] Platelet mean volume (Bld) [Entitic vol] 9.3 fL Normal 9.0-12.7 [facility] Comment on above: Performed By: #### C RP, RFP, CBC, FERR #### [address] [place] [address] Platelets (Bld) [#/Vol] 434 10*3/uL High 150-400 [facility] Comment on above: Performed By: #### C RP, RFP, CBC, FERR #### [address] [place] [address] RBC (Bld) [#/Vol] 4.00 10*6/uL Normal 3.90-5.20 [facility] Comment on above: Performed By: #### C RP, RFP, CBC, FERR #### [address] [place] [address] WBC (Bld) [#/Vol] 6.60 10*3/uL Normal 3.70-11.00 [facility] Comment on above: Performed By: #### C RP, RFP, CBC, FERR #### [address] [place] [address] CONSULT PROGon 04-23-2021 CONSULT PROG HNO ID: [id number] Author: Kishan Maharaj V, MD Service: Pulmonary [...] mg ORAL DAILY (6 AM) phenol 1 Daisy (CHLORASEPTIC) 1 Daisy MUCOUS MEMBRANE (TOPICAL MOUTH AND THROAT) q 2 H PRN sodium chloride 0.65 % 2 Daisy (AYR, OCEAN) 2 Daisy EACH NOSTRIL PRN OBJECTIVE VITAL SIGNS (last [...] may have been partially generated using the LocAsian voice recognition system and there may be some incorrect words, spellings or punctuation that were not noted in review before signing. SIGNATURE: Pablo Deutsch PA-C DATE: April 23, 2021 TIME: 8:45 AM Phone/Pager - Supervising Staff Physician: Dr. Maharaj Attending Note I have personally performed a face to face assessment of the patient and have reveived the (more content not included)... Normal [facility] Expedited [id number] 04-23-20 21 SARS-CoV-2 (COVID-19) RNA KRISTOFER+probe Ql (Unsp spec) UPPER RESPIRATORY TRACT SWAB Normal [facility] Comment on above: Result Comment: Call ed to and read back by: Nicolasa Wilder RN [address] 04/23/21 1831 T Conn Performed By: #### C RP, RFP, CBC, FERR #### [facility] [address] [place] [id number] SARS-CoV-2 (COVID-19) RNA KRISTOFER+probe Ql (Unsp spec) Positive for COVID19 (SARS CoV2) by RT-PCR or equivalent method. Critically abnormal Negative for COVID19 (SARS CoV2) by RT-PCR or equivalent method. [facility] Comment on above: Result Comment: If y our test results are positive, you have tested positive for the presence of the virus associated with COVID-19. This is a stressful time and if you are a [facility] patient, we will support you by [...] #### C RP, RFP, CBC, FERR #### [facility] [address] [place] [address] Ferritinon 04-23-2021 Ferritin [Mass/Vol] 327.4 ng/mL High 14.7-205.1 [facility] Comment on above: Performed By: #### C RP, RFP, CBC, FERR #### [facility] [address] [place] [address] NURSING PROGon 04-23-2021 NURSING PROG HNO ID: [id number] Author: Derrek Wilder RN Service: ? Author Type: Registered Nurse Type: Nursing Progress Note Filed: 04/23/2021 6:39 PM Note Text: Nursing Progress Note Patient Name: Bo Jacob Patient Location: [id number] Daily Note: 0730 Assumed care pt stable will continue to monitor vitals. Bed in low locked position and call light within reach. 1130 Pt 89% on exertion on 2L NC 1150 Pt 90 % at rest on room air, Pt placed back on 2 L NC pt spo2 93% 1400 Pt and aiden request for pt to go to [facility] 1830 eeg technician Conn called lab value covid positive. Pt already known to have covid. This note was completed by: Derrek Wilder Normal [facility] Renal Function Panelon 04-23 Albumin [Mass/Vol] 3.2 g/dL Low 4.0-4.[address] [facility] Comment on above: Performed By: #### C RP, RFP, CBC, FERR #### [place] [address] [place] [address] Anion gap [Moles/Vol] 9 mmol/L Normal 0-15 [facility] Comment on above: Performed By: #### C RP, RFP, CBC, FERR #### [address] [place] [address] Calcium [Mass/Vol] 8.7 mg/dL Normal 8.5-10.[address] [facility] Comment on above: Result Comment: Felipe mmended reference range provided for this age range is published by the instrument solar applications development engineer. Adult reference ranges have been verified. Performed By: #### C RP, RFP, CBC, FERR #### [address] [place] [address] Chloride [Moles/Vol] 106 mmol/L High 97-105 [facility] Comment on above: Performed By: #### C RP, RFP, CBC, FERR #### [address] [place] [address] CO2 [Moles/Vol] 25 mmol/L Normal 22-30 [facility] Comment on above: Performed By: #### C RP, RFP, CBC, FERR #### [address] [place] [address] Creatinine [Mass/Vol] 0.81 mg/dL Normal 0.58-0.96 [facility] Comment on above: Performed By: #### C RP, RFP, CBC, FERR #### [address] [place] [address] eGFR- Amer. >60 Normal >[address] [facility] Comment on above: Performed By: #### C RP, RFP, CBC, FERR #### [address] [place] [address] eGFR-All Other Races >60 Normal >60 [facility] Comment on above: Result Comment: eGFR (Estimated GFR) Units of measure: mL/min/1.73 meters squared eGFR is derived from the reexpressed MDRD Study equation using the following parameters: serum creatinine, age, gender and race. The creatinine assay has been calibrated to be traceable to IDNC. An eGFR <60 mL/min/1.73m2 for >3 months is consistent with chronic kidney disease. Refer to KDOQI guidelines for clinical interpretation. In patients with unstable renal function, e.g. those with acute kidney injury, the eGFR may not accurately reflect actual GFR. Performed By: #### C RP, RFP, CBC, FERR #### [address] [place] [address] Glucose [Mass/Vol] 91 mg/dL Normal 74-[address] [facility] Comment on above: Performed By: #### C RP, RFP, CBC, FERR #### [address] [place] [address] Phosphate [Mass/Vol] 2.6 mg/dL Normal 2.5-4.5 [facility] Comment on above: Performed By: #### C RP, RFP, CBC, FERR #### [address] [place] [address] Potassium [Moles/Vol] 3.7 mmol/L Normal 3.7-5.1 [facility] Comment on above: Performed By: #### C RP, RFP, CBC, FERR #### [address] [place] [address] Sodium [Moles/Vol] 140 mmol/L Normal 136-[address] [facility] Comment on above: Performed By: #### C RP, RFP, CBC, FERR #### [address] [place] [address] Urea nitrogen [Mass/Vol] 18 mg/dL Normal 7-21 [facility] Comment on above: Result Comment: Felipe mmended reference range provided for this age range is published by the instrument solar applications development engineer. Adult reference ranges have been verified. Performed By: #### C RP, RFP, CBC, FERR #### [address] [place] [address] CBCon 04-22-2021 Absolute nRBC <0.01 Normal <0.01 [facility] Comment on above: Performed By: #### C RP, RFP, CBC, FERR #### [address] [place] [address] Erythrocyte distribution width (RBC) [Ratio] 13.2 % Normal 11.5-15.0 [facility] Comment on above: Performed By: #### C RP, RFP, CBC, FERR #### [address] [place] [address] Hematocrit (Bld) [Volume fraction] 37.3 % Normal 36.0-46.0 [facility] Comment on above: Performed By: #### C RP, RFP, CBC, FERR #### [address] [place] [address] Hemoglobin (Bld) [Mass/Vol] 12.4 g/dL Normal 11.5-15.5 [facility] Comment on above: Performed By: #### C RP, RFP, CBC, FERR #### [address] [place] [address] MCH 29.9 pG Normal 26.0-34.0 [facility] Comment on above: Performed By: #### C RP, RFP, CBC, FERR #### [address] [place] [address] MCHC (RBC) [Mass/Vol] 33.2 g/dL Normal 30.5-36.0 [facility] Comment on above: Performed By: #### C RP, RFP, CBC, FERR #### [address] [place] [address] MCV (RBC) [Entitic vol] 89.9 fL Normal 80.0-100.0 [facility] Comment on above: Performed By: #### C RP, RFP, CBC, FERR #### [address] [place] [address] Platelet mean volume (Bld) [Entitic vol] 9.3 fL Normal 9.0-12.7 [facility] Comment on above: Performed By: #### C RP, RFP, CBC, FERR #### [address] [place] [address] Platelets (Bld) [#/Vol] 452 10*3/uL High 150-400 [facility] Comment on above: Performed By: #### C RP, RFP, CBC, FERR #### [address] [place] [address] RBC (Bld) [#/Vol] 4.15 10*6/uL Normal 3.90-5.20 [facility] Comment on above: Performed By: #### C RP, RFP, CBC, FERR #### [address] [place] [address] WBC (Bld) [#/Vol] 7.94 10*3/uL Normal 3.70-11.00 [facility] Comment on above: Performed By: #### C RP, RFP, CBC, FERR #### [address] [place] [address] NURSING PROGon 04-22-2021 NURSING PROG HNO ID: [id number] Author: Ashley Aly, BERNABE Service: Nursing Author Type: Registered Nurse Type: Nursing Progress Note Filed: 04/22/2021 2:41 PM Note Text: Nursing Progress Note Patient Name: Bo Jacob Patient Location: [id number] 2 Daily Note: Received report from pole shaver RN. Pt laying in bed, awake, and comfortable. Assessment complete as in the NPR.Pt needs met. Possessions and call light in reach. No complaints of pain at this time. 0821: Pt given medication as ordered and tolerated well. Pt needs met. Possessions and call light in reach. 1147: AP on unit and in to see. Made aware patient requesting to be transferred to [facility], for patient hospitalized there. AP called [facility] for transfer. This note was completed by: Ashley Aly [facility] NURSING PROG HNO ID: [id number] Author: Cherelle Howe RN Service: Nursing Author Type: Registered Nurse Type: Nursing Progress Note Filed: 04/22/2021 4:34 AM Note Text: Nursing Progress Note Patient Name: Bo Jacob Patient Location: [place] [id number] 2 Daily Note: 1930 Assumed care of [...] was completed by: Cherelle Howe [facility] Renal Function Panelon 04-22 Albumin [Mass/Vol] 3.2 g/dL Low 4.0-4.[address] [facility] Comment on above: Performed By: #### C RP, RFP, CBC, FERR #### [facility] [address] [place] [address] Anion gap [Moles/Vol] 10 mmol/L Normal 0-15 Mar [facility] Comment on above: Performed By: #### C RP, RFP, CBC, FERR #### [address] [place] [address] Calcium [Mass/Vol] 8.8 mg/dL Normal 8.5-10.[address] [facility] Comment on above: Result Comment: Felipe mmended reference range provided for this age range is published by the instrument solar applications development engineer. Adult reference ranges have been verified. Performed By: #### C RP, RFP, CBC, FERR #### [address] [place] [address] Chloride [Moles/Vol] 105 mmol/L Normal 97-105 [facility] Comment on above: Performed By: #### C RP, RFP, CBC, FERR #### [address] [place] [address] CO2 [Moles/Vol] 25 mmol/L Normal 22-30 [facility] Comment on above: Performed By: #### C RP, RFP, CBC, FERR #### [address] [place] [address] Creatinine [Mass/Vol] 0.83 mg/dL Normal 0.58-0.96 [facility] Comment on above: Performed By: #### C RP, RFP, CBC, FERR #### [address] [place] [address] eGFR- Amer. >60 Normal >[address] [facility] Comment on above: Performed By: #### C RP, RFP, CBC, FERR #### [address] [place] [address] eGFR-All Other Races >60 Normal >60 [facility] Comment on above: Result Comment: eGFR (Estimated GFR) Units of measure: mL/min/1.73 meters squared eGFR is derived from the reexpressed MDRD Study equation using the following parameters: serum creatinine, age, gender and race. The creatinine assay has been calibrated to be traceable to IDNC. An eGFR <60 mL/min/1.73m2 for >3 months is consistent with chronic kidney disease. Refer to KDOQI guidelines for clinical interpretation. In patients with unstable renal function, e.g. those with acute kidney injury, the eGFR may not accurately reflect actual GFR. Performed By: #### C RP, RFP, CBC, FERR #### [address] [place] [address] Glucose [Mass/Vol] 90 mg/dL Normal 74-[address] [facility] Comment on above: Performed By: #### C RP, RFP, CBC, FERR #### [address] [place] [address] Phosphate [Mass/Vol] 2.9 mg/dL Normal 2.5-4.5 [facility] Comment on above: Performed By: #### C RP, RFP, CBC, FERR #### [address] [place] [address] Potassium [Moles/Vol] 3.5 mmol/L Low 3.7-5.1 [facility] Comment on above: Performed By: #### C RP, RFP, CBC, FERR #### [address] [place] [address] Sodium [Moles/Vol] 140 mmol/L Normal 136-[address] [facility] Comment on above: Performed By: #### C RP, RFP, CBC, FERR #### [address] [place] [address] Urea nitrogen [Mass/Vol] 19 mg/dL Normal 7-21 [facility] Comment on above: Result Comment: Felipe mmended reference range provided for this age range is published by the instrument solar applications development engineer. Adult reference ranges have been verified. Performed By: #### C RP, RFP, CBC, FERR #### [address] [place] [address] C-Reactive Proteinon 021 C-Reactive Protein 2.1 mg/dL High <0.[address] [facility] Comment on above: Performed By: #### R FP, FERR, CBC, CRP ####[address] [place]., [place] [phone] CBCon 04-21-2021 Absolute nRBC <0.01 Normal <0.01 [facility] Comment on above: Performed By: #### R FP, FERR, CBC, CRP #### [address] [place] [address] Erythrocyte distribution width (RBC) [Ratio] 12.9 % Normal 11.5-15.0 [facility] Comment on above: Performed By: #### R FP, FERR, CBC, CRP #### [address] [place] [address] Hematocrit (Bld) [Volume fraction] 37.9 % Normal 36.0-46.0 [facility] Comment on above: Performed By: #### R FP, FERR, CBC, CRP #### [address] [place] [address] Hemoglobin (Bld) [Mass/Vol] 12.6 g/dL Normal 11.5-15.5 [facility] Comment on above: Performed By: #### R FP, FERR, CBC, CRP #### [address] [place] [address] MCH 30.1 pG Normal 26.0-34.0 [facility] Comment on above: Performed By: #### R FP, FERR, CBC, CRP #### [address] [place] [address] MCHC (RBC) [Mass/Vol] 33.2 g/dL Normal 30.5-36.0 [facility] Comment on above: Performed By: #### R FP, FERR, CBC, CRP #### [address] [place] [address] MCV (RBC) [Entitic vol] 90.7 fL Normal 80.0-100.0 [facility] Comment on above: Performed By: #### R FP, FERR, CBC, CRP #### [address] [place] [address] Platelet mean volume (Bld) [Entitic vol] 9.0 fL Normal 9.0-12.7 [facility] Comment on above: Performed By: #### R FP, FERR, CBC, CRP #### [address] [place] [address] Platelets (Bld) [#/Vol] 472 10*3/uL High 150-400 [facility] Comment on above: Performed By: #### R FP, FERR, CBC, CRP #### [address] [place] [address] RBC (Bld) [#/Vol] 4.18 10*6/uL Normal 3.90-5.20 [facility] Comment on above: Performed By: #### R FP, FERR, CBC, CRP #### [address] [place] [address] WBC (Bld) [#/Vol] 9.21 10*3/uL Normal 3.70-11.00 [facility] Comment on above: Performed By: #### R FP, FERR, CBC, CRP #### [address] [place] [address] CONSULT PROGon 04-21-2021 CONSULT PROG HNO ID: [id number] Author: Afsaneh Heard MD Service: Infectious Disease [...] CRP better AFSANEH HEARD M.D ID consultants [phone] [facility] Ferritinon 04-21-2021 Ferritin [Mass/Vol] 393.8 ng/mL High 14.7-205.1 [facility] Comment on above: Performed By: #### R FP, FERR, CBC, CRP ####[facility] [place], [place] [phone] NURSING PROGon 04-21-2021 NURSING PROG HNO ID: [id number] Author: Radha Clements RN Service: ? Author Type: Registered Nurse Type: Nursing Progress Note Filed: 04/21/2021 3:45 PM Note Text: Nursing Progress Note Patient Name: Bo Jacob Patient Location: [id number] 2 Daily Note: 07 Receive bedside report [...] was completed by: Radha Clements [facility] NUTRITIONon 04-21-2021 NUTRITION HNO ID: [id number] Author: Rehana Garcia RD Service: Nutrition Therapy Author Type: Registered Dietitian Type: Nutrition Filed: 04/21/2021 12:10 PM Note Text: NUTRITION THERAPY PROGRESS NOTE SERVICE DATE: 04/21/2021 SERVICE TIME: 1000 Nutrition Assessment: Recommended Malnutrition Diagnosis: Mild Protein-Calorie Malnutrition (04/17/21 0858 : Phyllis Esqueda RD) Estimated kilocalorie needs: 4285-6332 Calorie Calculation Method: 11-14 kcals/kg Estimated protein needs (grams): 96-120 Grams protein determined by: 2.0 - 2.5 g/kg;Dresher body weight Care Plan: Continue current diet [...] April 21, 2021 TIME: 12:09 PM PAGER: [phone] Normal [facility] Renal Function Panelon 04-21 Albumin [Mass/Vol] 3.4 g/dL Low 4.0-4.[address] [facility] Comment on above: Performed By: #### R FP, FERR, CBC, CRP ####[place] [address] [employer] [place] [phone] Anion gap [Moles/Vol] 7 mmol/L Normal 0-15 Mar [facility] Comment on above: Performed By: #### R FP, FERR, CBC, CRP ####[place] [address] [address] [facility] [place] [phone] Calcium [Mass/Vol] 8.8 mg/dL Normal 8.5-10.[address] [facility] Comment on above: Result Comment: Felipe mmended reference range provided for this age range is published by the instrument solar applications development engineer. Adult reference ranges have been verified. Performed By: #### R FP, FERR, CBC, CRP ####[place] [id number] [facility] [place] [phone] Chloride [Moles/Vol] 106 mmol/L High 97-105 [facility] Comment on above: Performed By: #### R FP, FERR, CBC, CRP ####[place] [address] [facility] [place] [phone] CO2 [Moles/Vol] 26 mmol/L Normal 22-30 [facility] Comment on above: Performed By: #### R FP, FERR, CBC, CRP ####[address] [place] [phone] Creatinine [Mass/Vol] 0.68 mg/dL Normal 0.58-0.96 [facility] Comment on above: Performed By: #### R FP, FERR, CBC, CRP ####[address] [place] [phone] eGFR- Amer. >60 Normal >[address] [facility] Comment on above: Performed By: #### R FP, FERR, CBC, CRP ####[address] [place] [phone] eGFR-All Other Races >60 Normal >60 [facility] Comment on above: Result Comment: [...] By: #### R FP, FERR, CBC, CRP ####[address] [place] [phone] Glucose [Mass/Vol] 94 mg/dL Normal 74-[address] [facility] Comment on above: Performed By: #### R FP, FERR, CBC, CRP ####[address] [place] [phone] Phosphate [Mass/Vol] 2.7 mg/dL Normal 2.5-4.5 [facility] Comment on above: Performed By: #### R FP, FERR, CBC, CRP ####[address] [place] [phone] Potassium [Moles/Vol] 3.8 mmol/L Normal 3.7-5.1 [facility] Comment on above: Performed By: #### R FP, FERR, CBC, CRP ####[facility] [place] [phone] Sodium [Moles/Vol] 139 mmol/L Normal 136-[address] [facility] Comment on above: Performed By: #### R FP, FERR, CBC, CRP ####[facility] [facility] [place]., [place] [phone] Urea nitrogen [Mass/Vol] 20 mg/dL Normal 7-21 [facility] Comment on above: Result Comment: Felipe mmended reference range provided for this age range is published by the instrument solar applications development engineer. Adult reference ranges have been verified. Performed By: #### R FP, FERR, CBC, CRP ####[facility] [facility] [place]., [place] [phone] THERAPY NTon 04-21-2021 THERAPY NT HNO ID: [id number] Author: Stevo Fallon, PT Service: ? Author Type: Physical Therapist Type: Therapy (PT/OT/Speech/Resp) Filed: 04/21/2021 2:33 PM Note Text: Physical Therapy Re-Evaluation SERVICE DATE: 04/21/2021 SERVICE TIME: 1130 to 1215 ROOM: [place] [address] Recommended Discharge Disposition: Subacute/SNF Recommended Discharge Disposition [...] 5 L (more content not included)... Normal [facility] CBCon 04-20-2021 Absolute nRBC <0.01 Normal <0.01 [facility] Comment on above: Performed By: #### C RP, RFP, CBC, FERR #### [address], [place] [address] Erythrocyte distribution width (RBC) [Ratio] 13.0 % Normal 11.5-15.0 [facility] Comment on above: Performed By: #### C RP, RFP, CBC, FERR #### [address] [place] [address] Hematocrit (Bld) [Volume fraction] 35.8 % Low 36.0-46.0 [facility] Comment on above: Performed By: #### C RP, RFP, CBC, FERR #### [address] [place] [address] Hemoglobin (Bld) [Mass/Vol] 12.0 g/dL Normal 11.5-15.5 [facility] Comment on above: Performed By: #### C RP, RFP, CBC, FERR #### [address] [place] [address] MCH 30.2 pG Normal 26.0-34.0 [facility] Comment on above: Performed By: #### C RP, RFP, CBC, FERR #### [address] [place] [address] MCHC (RBC) [Mass/Vol] 33.5 g/dL Normal 30.5-36.0 [facility] Comment on above: Performed By: #### C RP, RFP, CBC, FERR #### [address] [place] [address] MCV (RBC) [Entitic vol] 90.2 fL Normal 80.0-100.0 [facility] Comment on above: Performed By: #### C RP, RFP, CBC, FERR #### [address] [place] [address] Platelet mean volume (Bld) [Entitic vol] 8.9 fL Low 9.0-12.7 [facility] Comment on above: Performed By: #### C RP, RFP, CBC, FERR #### [address] [place] [address] Platelets (Bld) [#/Vol] 442 10*3/uL High 150-400 [facility] Comment on above: Performed By: #### C RP, RFP, CBC, FERR #### [address] [place] [address] RBC (Bld) [#/Vol] 3.97 10*6/uL Normal 3.90-5.20 [facility] Comment on above: Performed By: #### C RP, RFP, CBC, FERR #### [address] [place] [address] WBC (Bld) [#/Vol] 7.32 10*3/uL Normal 3.70-11.00 [facility] Comment on above: Performed By: #### C RP, RFP, CBC, FERR #### [facility] [address] [place], [place] [phone] CONSULT PROGon 04-20-2021 CONSULT PROG HNO ID: [id number] Author: Afsaneh Heard MD Service: Infectious Disease [...] CRP better AFSANEH HEARD M.D ID consultants [phone] [facility] NURSING PROGon 04-20-2021 NURSING PROG HNO ID: [id number] Author: Alondra Rivas RN Service: Nursing Author Type: Registered Nurse Type: Nursing Progress Note Filed: 04/20/2021 7:51 PM Note Text: Nursing Progress Note Patient Name: Bo Jacob Patient Location: [id number] 2 Daily Note: 1930 Assumed care of patient. This note was completed by: Alondra Rivas [facility] NURSING PROG HNO ID: [id number] Author: Radha Clements RN Service: ? Author Type: Registered Nurse Type: Nursing Progress Note Filed: 04/20/2021 2:45 PM Note Text: Nursing Progress Note Patient Name: Bo Jacob Patient Location: [place] [address]/[id number] 2 Daily Note: 1350 Patient transfer to room [facility]-2 from ICU. Patient AANDOx3. Assessment complete as chart. Oxygen 5L via NC. No sing of respiratory distress noted. Telemetry maintained in SR. External catheter in place. No pain or c/o at this time. Bed rails upx3. Call light within reach. Will continue to monitor. [address] Pulido. This note was completed by: Radha Clements [facility] Renal Function Panelon 04-20 Albumin [Mass/Vol] 3.2 g/dL Low 4.0-4.[address] [facility] Comment on above: Performed By: #### C RP, RFP, CBC, FERR #### [facility] [address] [place] [address] Anion gap [Moles/Vol] 9 mmol/L Normal 0-15 [facility] Comment on above: Performed By: #### C RP, RFP, CBC, FERR #### [facility] [address] [place] [address] Calcium [Mass/Vol] 8.7 mg/dL Normal 8.5-10.[address] [facility] Comment on above: Result Comment: Felipe mmended reference range provided for this age range is published by the instrument solar applications development engineer. Adult reference ranges have been verified. Performed By: #### C RP, RFP, CBC, FERR #### [facility] [address] [place] [address] Chloride [Moles/Vol] 105 mmol/L Normal 97-105 [facility] Comment on above: Performed By: #### C RP, RFP, CBC, FERR #### [facility] [address] [place] [address] CO2 [Moles/Vol] 25 mmol/L Normal 22-30 [facility] Comment on above: Performed By: #### C RP, RFP, CBC, FERR #### [facility] [phone] [place] [address] [place] [address] Creatinine [Mass/Vol] 0.80 mg/dL Normal 0.58-0.96 [facility] Comment on above: Performed By: #### C RP, RFP, CBC, FERR #### [address] [place] [address] eGFR- Amer. >60 Normal >[address] [facility] Comment on above: Performed By: #### C RP, RFP, CBC, FERR #### [facility] [phone] [place] [address]., [place] [address] eGFR-All Other Races >60 Normal >60 [facility] Comment on above: Result Comment: [...] #### C RP, RFP, CBC, FERR #### [facility] [address] [place] [address] Glucose [Mass/Vol] 85 mg/dL Normal 74-[address] [facility] Comment on above: Performed By: #### C RP, RFP, CBC, FERR #### [address] [place] [address] Phosphate [Mass/Vol] 3.0 mg/dL Normal 2.5-4.5 [facility] Comment on above: Performed By: #### C RP, RFP, CBC, FERR #### [address] [place] [address] Potassium [Moles/Vol] 3.8 mmol/L Normal 3.7-5.1 [facility] Comment on above: Performed By: #### C RP, RFP, CBC, FERR #### [address] [place] [address] Sodium [Moles/Vol] 139 mmol/L Normal 136-[address] [facility] Comment on above: Performed By: #### C RP, RFP, CBC, FERR #### [address] [place] [address] Urea nitrogen [Mass/Vol] 18 mg/dL Normal 7-21 [facility] Comment on above: Result Comment: Felipe mmended reference range provided for this age range is published by the instrument solar applications development engineer. Adult reference ranges have been verified. Performed By: #### C RP, RFP, CBC, FERR #### [address] [place] [address] C-Reactive Proteinon 021 C-Reactive Protein 3.7 mg/dL High <0.[address] [facility] Comment on above: Performed By: #### C RP, RFP, CBC, FERR #### [address] [place] [address] CASE MANAGEMon 04-19-2021 CASE MANAGEM HNO ID: [id number] Author: Zehra Jones RN Service: Nursing Author [...] Noted DC planning has been for [facility]- sent updates. CM will continue to follow and assist with discharge planning. ? SIGNATURE: Zehra Jones RN PATIENT NAME: Bo Jacob DATE: April 19, 2021 TIME: 12:35 PM PAGER/CONTACT #: - Normal [facility] CBCon 04-19-2021 Absolute nRBC <0.01 Normal <0.01 [facility] Comment on above: Performed By: #### C RP, RFP, CBC, FERR #### [address] [place] [address] Erythrocyte distribution width (RBC) [Ratio] 13.0 % Normal 11.5-15.0 [facility] Comment on above: Performed By: #### C RP, RFP, CBC, FERR #### [address] Hematocrit (Bld) [Volume fraction] 36.3 % Normal 36.0-46.0 [facility] Comment on above: Performed By: #### C RP, RFP, CBC, FERR #### [phone] Hemoglobin (Bld) [Mass/Vol] 12.2 g/dL Normal 11.5-15.5 [facility] Comment on above: Performed By: #### C RP, RFP, CBC, FERR #### [address] [place] [address] MCH 29.9 pG Normal 26.0-34.0 [facility] Comment on above: Performed By: #### C RP, RFP, CBC, FERR #### [facility] [address] [place] [address] MCHC (RBC) [Mass/Vol] 33.6 g/dL Normal 30.5-36.0 [facility] Comment on above: Performed By: #### C RP, RFP, CBC, FERR #### [address] [place] [address] MCV (RBC) [Entitic vol] 89.0 fL Normal 80.0-100.0 [facility] [facility] Comment on above: Performed By: #### C RP, RFP, CBC, FERR #### [address] [place] [address] Platelet mean volume (Bld) [Entitic vol] 9.2 fL Normal 9.0-12.7 [facility] Comment on above: Performed By: #### C RP, RFP, CBC, FERR #### [address] [place] [address] Platelets (Bld) [#/Vol] 465 10*3/uL High 150-400 [facility] Comment on above: Performed By: #### C RP, RFP, CBC, FERR #### [address] [place] [address] RBC (Bld) [#/Vol] 4.08 10*6/uL Normal 3.90-5.20 [facility] Comment on above: Performed By: #### C RP, RFP, CBC, FERR #### [address] [place] [address] WBC (Bld) [#/Vol] 9.24 10*3/uL Normal 3.70-11.00 [facility] Comment on above: Performed By: #### C RP, RFP, CBC, FERR #### [address] [place] [address] CONSULTon 04-19-2021 CONSULT HNO ID: [id number] Author: Ty Pulido MD Service: General Internal Medicine Author Type: Physician Type: Consults Filed: 04/19/2021 9:27 PM Note Text: INTERNAL MEDICINE INITIAL CONSULT SERVICE DATE: 04/19/2021 SERVICE TIME: 11:30 AM REASON FOR CONSULT: Post ICU medical management REQUESTING PHYSICIAN: Dr. Moscoso PRIMARY CARE PHYSICIAN: Loan Dias APRN.DRAW PRESS OPERATOR Subjective HISTORY OF PRESENT ILLNESS: Ms. Jacob [...] 2 (more content not included)... [facility] CONSULT PROGon 04-19-2021 CONSULT PROG HNO ID: [id number] Author: Afsaneh Heard MD Service: Infectious Disease [...] CRP better AFSANEH HEARD M.D ID consultants [phone] [facility] Ferritinon 04-19-2021 Ferritin [Mass/Vol] 402.7 ng/mL High 14.7-205.1 [facility] Comment on above: Performed By: #### C RP, RFP, CBC, FERR #### [facility] [address] [place] [address] NURSING PROGon 04-19-2021 NURSING PROG HNO ID: [id number] Author: Radha Gonzalez RN Service: ? Author Type: Registered Nurse Type: Nursing Progress Note Filed: 04/19/2021 7:36 PM Note Text: Nursing Progress Note Patient Name: Bo Jacob Patient Location: -ICUA16/-ICUA-16 Daily Note: 1900 assumed care of pt This note was completed by: Radha Gonzalez [facility] NURSING PROG HNO ID: [id number] Author: Claudia Salas RN Service: ? Author Type: Registered Nurse Type: Nursing Progress Note Filed: 04/19/2021 11:27 AM Note Text: Nursing Progress Note Patient Name: Bo Jacob Patient Location: -ICUA16/-ICUA-16 Daily Note: 0700 report from jyoti malcolm 1130 dr. Moscoso at bedside, pt is transfer to telemetry This note was completed by: Claudia Salas Normal [facility] Renal Function Panelon 04-19 Albumin [Mass/Vol] 3.3 g/dL Low 4.0-4.[address] [facility] Comment on above: Performed By: #### C RP, RFP, CBC, FERR #### [facility] [address] [place] [address] Anion gap [Moles/Vol] 10 mmol/L Normal 0-15 [facility] Comment on above: Performed By: #### C RP, RFP, CBC, FERR #### [address] [place] [address] Calcium [Mass/Vol] 8.8 mg/dL Normal 8.5-10.[address] [facility] Comment on above: Result Comment: Fleipe mmended reference range provided for this age range is published by the instrument solar applications development engineer. Adult reference ranges have been verified. Performed By: #### C RP, RFP, CBC, FERR #### [address] [place] [address] Chloride [Moles/Vol] 105 mmol/L Normal 97-105 [facility] Comment on above: Performed By: #### C RP, RFP, CBC, FERR #### [address] [place] [address] CO2 [Moles/Vol] 24 mmol/L Normal 22-30 [facility] Comment on above: Performed By: #### C RP, RFP, CBC, FERR #### [address] [place] [address] Creatinine [Mass/Vol] 0.78 mg/dL Normal 0.58-0.96 [facility] Comment on above: Performed By: #### C RP, RFP, CBC, FERR #### [address] [place] [address] eGFR- Amer. >60 Normal >[address] [facility] Comment on above: Performed By: #### C RP, RFP, CBC, FERR #### [facility] [address] [place] [address] eGFR-All Other Races >60 Normal >60 [facility] Comment on above: Result Comment: [...] #### C RP, RFP, CBC, FERR #### [address] [place] [address] Glucose [Mass/Vol] 74 mg/dL Normal 74-[address] [facility] Comment on above: Performed By: #### C RP, RFP, CBC, FERR #### [address] [place] [address] Phosphate [Mass/Vol] 2.8 mg/dL Normal 2.5-4.5 [facility] Comment on above: Performed By: #### C RP, RFP, CBC, FERR #### [place] [id number] [place] [address] Potassium [Moles/Vol] 3.9 mmol/L Normal 3.7-5.1 [facility] Comment on above: Performed By: #### C RP, RFP, CBC, FERR #### [address] [place] [address] Sodium [Moles/Vol] 139 mmol/L Normal 136-[address] [facility] Comment on above: Performed By: #### C RP, RFP, CBC, FERR #### [address] [place] [address] Urea nitrogen [Mass/Vol] 17 mg/dL Normal 7-21 [facility] Comment on above: Result Comment: Felipe mmended reference range provided for this age range is published by the instrument solar applications development engineer. Adult reference ranges have been verified. Performed By: #### C RP, RFP, CBC, FERR #### [address] [place] [address] CBCon 04-18-2021 Absolute nRBC <0.01 Normal <0.01 [facility] Comment on above: Performed By: #### C RP, RFP, CBC, FERR #### [address] [place] [address] Erythrocyte distribution width (RBC) [Ratio] 12.7 % Normal 11.5-15.0 [facility] Comment on above: Performed By: #### C RP, RFP, CBC, FERR #### [address] [place] [address] Hematocrit (Bld) [Volume fraction] 35.7 % Low 36.0-46.0 [facility] Comment on above: Performed By: #### C RP, RFP, CBC, FERR #### [address] [place] [address] Hemoglobin (Bld) [Mass/Vol] 12.2 g/dL Normal 11.5-15.5 [facility] Comment on above: Performed By: #### C RP, RFP, CBC, FERR #### [address] [place] [address] MCH 30.3 pG Normal 26.0-34.0 [facility] Comment on above: Performed By: #### C RP, RFP, CBC, FERR #### [address] [place] [address] MCHC (RBC) [Mass/Vol] 34.2 g/dL Normal 30.5-36.0 [facility] Comment on above: Performed By: #### C RP, RFP, CBC, FERR #### [address] [place] [address] MCV (RBC) [Entitic vol] 88.6 fL Normal 80.0-100.0 [facility] Comment on above: Performed By: #### C RP, RFP, CBC, FERR #### [address] [place] [address] Platelet mean volume (Bld) [Entitic vol] 9.0 fL Normal 9.0-12.7 [facility] Comment on above: Performed By: #### C RP, RFP, CBC, FERR #### [address] [place] [address] Platelets (Bld) [#/Vol] 451 10*3/uL High 150-400 [facility] Comment on above: Performed By: #### C RP, RFP, CBC, FERR #### [address] [place] [address] RBC (Bld) [#/Vol] 4.03 10*6/uL Normal 3.90-5.20 [facility] Comment on above: Performed By: #### C RP, RFP, CBC, FERR #### [address] [place] [address] WBC (Bld) [#/Vol] 8.40 10*3/uL Normal 3.70-11.00 [facility] Comment on above: Performed By: #### C RP, RFP, CBC, FERR #### [address] [place] [address] CONSULT PROGon 04-18-2021 CONSULT PROG HNO ID: [id number] Author: Afsaneh Heard MD Service: Infectious Disease [...] WBC NL AFSANEH HEARD M.D ID consultants [phone] Normal [facility] Procalcitoninon 04-18-2021 Procalcitonin 0.13 ng/mL High <0.09 [facility] Comment on above: Result Comment: For a guided interpretation of test results, please visit the Change in Procalcitonin Calculator, [email or web address]. Performed By: #### C RP, RFP, CBC, FERR #### [facility] [address] [facility] [place] [address] Renal Function Panelon 04-18 Albumin [Mass/Vol] 3.3 g/dL Low 4.0-4.[address] [facility] Comment on above: Performed By: #### C RP, RFP, CBC, FERR #### [facility] [address] [facility] [place] [address] Anion gap [Moles/Vol] 9 mmol/L Normal 0-15 [facility] Comment on above: Performed By: #### C RP, RFP, CBC, FERR #### [facility] [address] [facility] [place] [address] Calcium [Mass/Vol] 8.8 mg/dL Normal 8.5-10.[address] [facility] Comment on above: Result Comment: Felipe mmended reference range provided for this age range is published by the instrument solar applications development engineer. Adult reference ranges have been verified. Performed By: #### C RP, RFP, CBC, FERR #### [address] [place] [address] Chloride [Moles/Vol] 105 mmol/L Normal 97-105 [facility] Comment on above: Performed By: #### C RP, RFP, CBC, FERR #### [address] [place] [address] CO2 [Moles/Vol] 27 mmol/L Normal 22-30 [facility] Comment on above: Performed By: #### C RP, RFP, CBC, FERR #### [address] [place] [address] Creatinine [Mass/Vol] 0.80 mg/dL Normal 0.58-0.96 [facility] Comment on above: Performed By: #### C RP, RFP, CBC, FERR #### [address] [place] [address] eGFR- Amer. >60 Normal >[address] [facility] Comment on above: Performed By: #### C RP, RFP, CBC, FERR #### [address] [place] [address] eGFR-All Other Races >60 Normal >60 [facility] Comment on above: Result Comment: [...] #### C RP, RFP, CBC, FERR #### [address] [place] [address] Glucose [Mass/Vol] 87 mg/dL Normal 74-[address] [facility] Comment on above: Performed By: #### C RP, RFP, CBC, FERR #### [address] [place] [address] Phosphate [Mass/Vol] 2.6 mg/dL Normal 2.5-4.5 [facility] Comment on above: Performed By: #### C RP, RFP, CBC, FERR #### [address] [place] [address] Potassium [Moles/Vol] 4.1 mmol/L Normal 3.7-5.1 [facility] Comment on above: Performed By: #### C RP, RFP, CBC, FERR #### [address] [place] [address] Sodium [Moles/Vol] 141 mmol/L Normal 136-[address] [facility] Comment on above: Performed By: #### C RP, RFP, CBC, FERR #### [address] [place] [address] Urea nitrogen [Mass/Vol] 17 mg/dL Normal 7-21 [facility] Comment on above: Result Comment: Felipe mmended reference range provided for this age range is published by the instrument solar applications development engineer. Adult reference ranges have been verified. Performed By: #### C RP, RFP, CBC, FERR #### [address] [place] [address] C-Reactive Proteinon 021 C-Reactive Protein 7.0 mg/dL High <0.[address] [facility] Comment on above: Performed By: #### C BC, RFP, CRP, FERR ####[address] [place]., [place] [phone] CASE MANAGEMon 04-17-2021 CASE MANAGEM HNO ID: [id number] Author: Zehra Jones RN Service: Nursing Author [...] [place]. Noted DC planning has been for [facility]. CM will continue to follow and assist with discharge planning. SIGNATURE: Zehra Jones RN PATIENT NAME: Bo Jacob DATE: April 17, 2021 TIME: 12:48 PM PAGER/CONTACT #: - Normal [facility] CBCon 04-17-2021 Absolute nRBC <0.01 Normal <0.01 [facility] Comment on above: Performed By: #### C BC, RFP, CRP, FERR ####[address], [phone] Erythrocyte distribution width (RBC) [Ratio] 12.7 % Normal 11.5-15.0 [facility] Comment on above: Performed By: #### C BC, RFP, CRP, FERR ####[address], [phone] Hematocrit (Bld) [Volume fraction] 36.9 % Normal 36.0-46.0 [facility] Comment on above: Performed By: #### C BC, RFP, CRP, FERR ####[address], [phone] Hemoglobin (Bld) [Mass/Vol] 12.2 g/dL Normal 11.5-15.5 [facility] Comment on above: Performed By: #### C BC, RFP, CRP, FERR ####[address], [phone] MCH 30.0 pG Normal 26.0-34.0 [facility] Comment on above: Performed By: #### C BC, RFP, CRP, FERR ####[address] [place] [phone] MCHC (RBC) [Mass/Vol] 33.1 g/dL Normal 30.5-36.0 [facility] Comment on above: Performed By: #### C BC, RFP, CRP, FERR ####[address] [place] [phone] MCV (RBC) [Entitic vol] 90.7 fL Normal 80.0-100.0 [facility] Comment on above: Performed By: #### C BC, RFP, CRP, FERR ####[address] [place] [phone] Platelet mean volume (Bld) [Entitic vol] 9.1 fL Normal 9.0-12.7 [facility] Comment on above: Performed By: #### C BC, RFP, CRP, FERR ####[address] [place] [phone] Platelets (Bld) [#/Vol] 381 10*3/uL Normal 150-400 [facility] Comment on above: Performed By: #### C BC, RFP, CRP, FERR ####[address] [place] [phone] RBC (Bld) [#/Vol] 4.07 10*6/uL Normal 3.90-5.20 [facility] Comment on above: Performed By: #### C BC, RFP, CRP, FERR ####[address] [place] [phone] WBC (Bld) [#/Vol] 7.82 10*3/uL Normal 3.70-11.00 [facility] Comment on above: Performed By: #### C BC, RFP, CRP, FERR ####[address] [place]., [place] [phone] CONSULT PROGon 04-17-2021 CONSULT PROG HNO ID: [id number] Author: Afsaneh Heard MD Service: Infectious Disease [...] higher today AFSANEH HEARD M.D ID consultants [phone] [facility] Ferritinon 04-17-2021 Ferritin [Mass/Vol] 495.8 ng/mL High 14.7-205.1 [facility] Comment on above: Performed By: #### C BC, RFP, CRP, FERR ####[facility] [place], [place] [phone] NURSING PROGon 04-17-2021 NURSING PROG HNO ID: [id number] Author: Claudia Salas RN Service: ? Author Type: Registered Nurse Type: Nursing Progress Note Filed: 04/17/2021 9:01 AM Note Text: Nursing Progress Note Patient Name: Bo Jacob Patient [facility] [place] [id number][facility] Daily Note: 699 report indra redd rn 0830 oxygen to nc 13l This note was completed by: Claudia Valdovinos [facility] NUTRITIONon 04-17-2021 NUTRITION HNO ID: [id number] Author: Phyllis Esqueda RD Service: Nutrition Therapy [...] by: Patient/family self-report;Intake records Estimated kilocalorie needs: 0502-4680 Calorie Calculation Method: 11-14 kcals/kg Estimated protein needs (grams): 96-120 Grams protein determined by: 2.0 - 2.5 g/kg;Dresher body weight Care Plan: Continue current diet Supplements: Ensure Clear;Zone Perfect Bar Vitamins and Minerals: Multivitamin with minerals Labs: BMP;CBC;Magnesium;Phosphoru s Monitor and Evaluation: Meet greater than 75% of estimated needs;Monitor bowel function;Monitor fluid/electrolyte balance;Monitor labs, I/Os, vital signs, weight Discharge Recommendations: Diet Diet: To be determined HPI: 65 year old F admitted for SOB 2/2 COVID PNA. PMHx significant for ER/IA positive, HER2 positive invasive ductal carcinoma in [...] April 17, 2021 TIME: 9:01 AM PAGER: [phone] Normal [facility] Renal Function Panelon 04-17 Albumin [Mass/Vol] 3.2 g/dL Low 4.0-4.[address] [facility] Comment on above: Performed By: #### C BC, RFP, CRP, FERR ####[facility] [facility] [place] [place] [phone] Anion gap [Moles/Vol] 8 mmol/L Normal 0-15 [facility] Comment on above: Performed By: #### C BC, RFP, CRP, FERR ####[facility] [facility] [place] [place] [phone] Calcium [Mass/Vol] 8.8 mg/dL Normal 8.5-10.[address] [facility] Comment on above: Result Comment: Felipe mmended reference range provided for this age range is published by the instrument solar applications development engineer. Adult reference ranges have been verified. Performed By: #### C BC, RFP, CRP, FERR ####[facility] [facility] [place] [place] [phone] Chloride [Moles/Vol] 102 mmol/L Normal 97-105 [facility] Comment on above: Performed By: #### C BC, RFP, CRP, FERR ####[address] [place]., [place] [phone] CO2 [Moles/Vol] 27 mmol/L Normal 22-30 [facility] Comment on above: Performed By: #### C BC, RFP, CRP, FERR ####[address] [place]., [place] [phone] Creatinine [Mass/Vol] 0.89 mg/dL Normal 0.58-0.96 [facility] Comment on above: Performed By: #### C BC, RFP, CRP, FERR ####[address] [place]., [place] [phone] eGFR- Amer. >60 Normal >[address] [facility] Comment on above: Performed By: #### C BC, RFP, CRP, FERR ####[address] [place]., [place] [phone] eGFR-All Other Races >60 Normal >60 [facility] Comment on above: Result Comment: [...] By: #### C BC, RFP, CRP, FERR ####[address] [place]., [place] [phone] Glucose [Mass/Vol] 83 mg/dL Normal 74-[address] [facility] Comment on above: Performed By: #### C BC, RFP, CRP, FERR ####[address] [place]., [place] [phone] Phosphate [Mass/Vol] 2.4 mg/dL Low 2.5-4.5 [facility] Comment on above: Performed By: #### C BC, RFP, CRP, FERR ####[facility] [facility] [place]., [place] [phone] Potassium [Moles/Vol] 3.5 mmol/L Low 3.7-5.1 [facility] Comment on above: Performed By: #### C BC, RFP, CRP, FERR ####[address] [place]., [place] [phone] Sodium [Moles/Vol] 137 mmol/L Normal 136-[address] [facility] Comment on above: Performed By: #### C BC, RFP, CRP, FERR ####[address] [place]., [place] [phone] Urea nitrogen [Mass/Vol] 15 mg/dL Normal 7-21 [facility] Comment on above: Result Comment: Felipe mmended reference range provided for this age range is published by the instrument solar applications development engineer. Adult reference ranges have been verified. Performed By: #### C BC, RFP, CRP, FERR ####[address] [place]., [place] [phone] THERAPY NTon 04-17-2021 THERAPY NT HNO ID: [id number] Author: Ashwini Diallo PT Service: Physical Therapy Author Type: Physical Therapist Type: Therapy (PT/OT/Speech/Resp) Filed: 04/17/2021 6:28 AM Note Text: PHYSICAL THERAPY MISSED VISIT SERVICE DATE: 04/17/2021 SERVICE TIME: 624 to 625 ROOM: [place] [address] Attempted Treatment. Patient not seen due to [...] April 17, 2021 TIME: 6:26 AM Normal [facility] CBCon 04-16-2021 Absolute nRBC <0.01 Normal <0.01 [facility] Comment on above: Performed By: #### C RP, RFP, CBC, FERR #### [address] [place] [address] Erythrocyte distribution width (RBC) [Ratio] 12.9 % Normal 11.5-15.0 [facility] Comment on above: Performed By: #### C RP, RFP, CBC, FERR #### [address] [place] [address] Hematocrit (Bld) [Volume fraction] 35.8 % Low 36.0-46.0 [facility] Comment on above: Performed By: #### C RP, RFP, CBC, FERR #### [address] [place] [address] Hemoglobin (Bld) [Mass/Vol] 12.0 g/dL Normal 11.5-15.5 [facility] Comment on above: Performed By: #### C RP, RFP, CBC, FERR #### [address] [place] [address] MCH 30.1 pG Normal 26.0-34.0 [facility] Comment on above: Performed By: #### C RP, RFP, CBC, FERR #### [address] [place] [address] MCHC (RBC) [Mass/Vol] 33.5 g/dL Normal 30.5-36.0 [facility] Comment on above: Performed By: #### C RP, RFP, CBC, FERR #### [address] [place] [address] MCV (RBC) [Entitic vol] 89.7 fL Normal 80.0-100.0 [facility] Comment on above: Performed By: #### C RP, RFP, CBC, FERR #### [address] [place] [address] Platelet mean volume (Bld) [Entitic vol] 9.1 fL Normal 9.0-12.7 [facility] Comment on above: Performed By: #### C RP, RFP, CBC, FERR #### [address] [place] [address] Platelets (Bld) [#/Vol] 363 10*3/uL Normal 150-400 [facility] Comment on above: Performed By: #### C RP, RFP, CBC, FERR #### [address] [place] [address] RBC (Bld) [#/Vol] 3.99 10*6/uL Normal 3.90-5.20 [facility] Comment on above: Performed By: #### C RP, RFP, CBC, FERR #### [address] [place] [address] WBC (Bld) [#/Vol] 7.31 10*3/uL Normal 3.70-11.00 [facility] Comment on above: Performed By: #### C RP, RFP, CBC, FERR #### [address] [place] [address] CONSULT PROGon 04-16-2021 CONSULT PROG HNO ID: [id number] Author: Monroe Stevens MD Service: Infectious Disease [...] trend inflammatory markers AND continue supportive measures [facility] CT CHEST W IVCON PEon 2020 CT CHEST W IVCON PE * * *Final Report* * * DATE OF EXAM: Apr 16 2021 4:00PM [facility] 0540 - CT CHEST W IVCON [...] lesion. Degenerative changes. Upper abdomen: Hepatic cysts Marine Electrician Apprentice (topogram) images: No additional findings. IMPRESSION: No CT evidence of pulmonary embolism. Nondiagnostic regions of segmental and subsegmental pulmonary arteries Persistent bilateral lung opacities, some areas more confluent/consolidative compared to prior. Interval new small left pleural effusion. Mild mediastinal/hilar adenopathy, likely reactive Emergency Specialist: RODO Transcribe Date/Time: Apr 16 2021 5:17P Dictated by : GIOVANI HANLEY MD This examination was interpreted and the report reviewed and electronically signed by: GIOVANI HANLEY MD on Apr 16 2021 5:27PM EST [id number] [facility] NURSING PROGon 04-16-2021 NURSING PROG HNO ID: [id number] Author: Claudia Salas RN Service: ? Author Type: Registered Nurse Type: Nursing Progress Note Filed: 04/16/2021 7:53 AM Note Text: Nursing Progress Note Patient Name: Bo Jacob Patient Location: [facility]-ICUA16/COURTNEY-ICUA-16 Daily Note: 0700 report from jyoti redd. Pt awake, alert, oriented. States had restful evening. This note was completed by: Claudia Salas [facility] NURSING PROG HNO ID: [id number] Author: Radha Gonzalez RN Service: ? Author Type: Registered Nurse Type: Nursing Progress Note Filed: 04/16/2021 2:50 AM Note Text: Nursing Progress Note Patient Name: Bo Jacob Patient Location: [place]-ICUA16/SHANICEICUA-16 Daily Note: 0000 assumed care of pt, received report from Norah Baxter RN This note was completed by: Radha Gonzalez [facility] Renal Function Panelon 04-16 Albumin [Mass/Vol] 3.1 g/dL Low 4.0-4.[address] [facility] Comment on above: Performed By: #### C RP, RFP, CBC, FERR #### [facility] [address] [place] [facility] [place] [address] Anion gap [Moles/Vol] 9 mmol/L Normal 0-15 [facility] Comment on above: Performed By: #### C RP, RFP, CBC, FERR #### [facility] [address] [facility] [place] [address] Calcium [Mass/Vol] 8.5 mg/dL Normal 8.5-10.[address] [facility] Comment on above: Result Comment: Felipe mmended reference range provided for this age range is published by the instrument solar applications development engineer. Adult reference ranges have been verified. Performed By: #### C RP, RFP, CBC, FERR #### [address] [place] [address] Chloride [Moles/Vol] 104 mmol/L Normal 97-105 [facility] Comment on above: Performed By: #### C RP, RFP, CBC, FERR #### [address] [place] [address] CO2 [Moles/Vol] 26 mmol/L Normal 22-30 [facility] Comment on above: Performed By: #### C RP, RFP, CBC, FERR #### [address] [place] [address] Creatinine [Mass/Vol] 0.89 mg/dL Normal 0.58-0.96 [facility] Comment on above: Performed By: #### C RP, RFP, CBC, FERR #### [address] [place] [address] eGFR- Amer. >60 Normal >[address] [facility] Comment on above: Performed By: #### C RP, RFP, CBC, FERR #### [address] [place] [address] eGFR-All Other Races >60 Normal >60 [facility] Comment on above: Result Comment: [...] #### C RP, RFP, CBC, FERR #### [address] [place] [address] Glucose [Mass/Vol] 80 mg/dL Normal 74-[address] [facility] Comment on above: Performed By: #### C RP, RFP, CBC, FERR #### [address] [place] [address] Phosphate [Mass/Vol] 2.9 mg/dL Normal 2.5-4.5 [facility] Comment on above: Performed By: #### C RP, RFP, CBC, FERR #### [address] [place] [address] Potassium [Moles/Vol] 4.3 mmol/L Normal 3.7-5.1 [facility] Comment on above: Performed By: #### C RP, RFP, CBC, FERR #### [address] [place] [address] Sodium [Moles/Vol] 139 mmol/L Normal 136-[address] [facility] Comment on above: Performed By: #### C RP, RFP, CBC, FERR #### [address] [place] [address] Urea nitrogen [Mass/Vol] 13 mg/dL Normal 7-21 [facility] Comment on above: Result Comment: Felipe mmended reference range provided for this age range is published by the instrument solar applications development engineer. Adult reference ranges have been verified. Performed By: #### C RP, RFP, CBC, FERR #### [address] [place] [address] ALLIED HEALTHon 04-15-2021 ALLIED HEALTH HNO ID: [id number] Author: Megan Blanc RDMS Service: Radiology Author Type: Stage Set Up Worker Type: Allied Health Filed: 04/15/2021 5:09 PM [...] RDMS April 15, 2021 5:09 PM Normal [facility] C-Reactive Proteinon 021 C-Reactive Protein 5.1 mg/dL High <0.[address] [facility] Comment on above: Performed By: #### C RP #### [facility] [address] [place] [address] CONSULT PROGon 04-15-2021 CONSULT PROG HNO ID: [id number] Author: Monroe Stevens MD Service: Infectious Disease [...] inflammatory markers AND continue supportive measures Normal [facility] D dimeron 04-15-2021 D dimer 1540 ng/mL FEU High <500 [facility] Comment on above: Result Comment: 500 [...] #### C RP, RFP, CBC, FERR #### [facility] [address] [place] [address] NURSING PROGon 04-15-2021 NURSING PROG HNO ID: [id number] Author: Claudia Salas RN Service: ? Author Type: Registered Nurse Type: Nursing Progress Note Filed: 04/15/2021 10:17 AM Note Text: Nursing Progress Note Patient Name: Bo Jacob [facility] Daily Note: 1015 [place] shortness of breath. Pt on 50 % venti mask, family at bedside. This note was completed by: Claudia Salas [facility] NURSING PROG HNO ID: [id number] Author: Akshat Julien RN Service: Nursing Author [...] and transfer patient to ICU. [facility] NURSING PROG HNO ID: [id number] Author: Jessie Martinez RN Service: Nursing Author Type: Registered Nurse Type: Nursing Progress Note Filed: 04/15/2021 7:58 AM Note Text: Nursing Progress Note Patient Name: Bo Jacob Patient Location: [id number] 2 Daily Note: Patient vitals sustained on 3 liters of oxygen; continues with continent diarrhea. Slept well for majority of the night. No s/s ?Of respiratory distress. Medicated with zofran for nausea per request with effective results. ? This note was completed by: Jessie Martinez Normal [facility] Procalcitoninon 04-15-2021 Procalcitonin 0.42 ng/mL High <0.09 [facility] Comment on above: Result Comment: For a guided interpretation of test results, please visit the Change in Procalcitonin Calculator, [email or web address]. Performed By: #### C RP, RFP, CBC, FERR #### [facility] [address] [place] [address] US DVT LOWER BILon US DVT LOWER [...] of the left and right lower extremities. Emergency Specialist: RODO Transcribe Date/Time: Apr 15 2021 9:15P Dictated by : MARISOL WOMACK MD This examination was interpreted and the report reviewed and electronically signed by: MARISOL WOMACK MD on Apr 15 2021 9:16PM EST [id number] [facility] XR CHEST 1V FRONTAL PORTon 0 04-15-2021 [...] identified. OTHER: N/A IMPRESSION: Bilateral multifocal infiltrates. Emergency Specialist: RODO Transcribe Date/Time: Apr 15 2021 10:38A Dictated by : PHYLLIS VASQUEZ MD This examination was interpreted and the report reviewed and electronically signed by: PHYLLIS VASQUEZ MD on Apr 15 2021 10:39AM EST [id number] [facility] CONSULT PROGon 04-14-2021 CONSULT PROG HNO ID: [id number] Author: Rosendo Landin V, MD Service: Infectious [...] markers AND continue supportive measures Dr. Stevens space systems operations craftsman this weekend. This patient will be seen PRN your call. Please call answering service at [phone] should you need to reach the physician space systems operations craftsman. Rosendo Landin MD [facility] Office #: Fax #: Date AND Time Signed: April 14, 2021 11:15 AM Normal [facility] Comp Metabolic Panelon 04-14 Albumin [Mass/Vol] 3.2 g/dL Low 4.0-4.[address] [facility] Comment on above: Performed By: #### C RP, RFP, CBC, FERR #### [facility] [address] [place] [address] ALP [Catalytic activity/Vol] 62 U/L Normal 34-123 [facility] Comment on above: Performed By: #### C RP, RFP, CBC, FERR #### [facility] [address] [facility] [place] [address] ALT [Catalytic activity/Vol] 25 U/L Normal 0-33 [facility] Comment on above: Performed By: #### C RP, RFP, CBC, FERR #### [facility] [address] [place] [address] Anion gap [Moles/Vol] 8 mmol/L Normal 0-15 [facility] Comment on above: Performed By: #### C RP, RFP, CBC, FERR #### [facility] [address] [place] [address] AST [Catalytic activity/Vol] 35 U/L High 0-32 [facility] Comment on above: Performed By: #### C RP, RFP, CBC, FERR #### [facility] [address] [place] [address] Bilirubin [Mass/Vol] 0.3 mg/dL Normal 0.2-1.3 [facility] Comment on above: Performed By: #### C RP, RFP, CBC, FERR #### [address] [place] [address] Calcium [Mass/Vol] 8.9 mg/dL Normal 8.5-10.[address] [facility] Comment on above: Result Comment: Felipe mmended reference range provided for this age range is published by the instrument solar applications development engineer. Adult reference ranges have been verified. Performed By: #### C RP, RFP, CBC, FERR #### [address] [place] [address] Chloride [Moles/Vol] 104 mmol/L Normal 97-105 [facility] Comment on above: Performed By: #### C RP, RFP, CBC, FERR #### [address] [place] [address] CO2 [Moles/Vol] 28 mmol/L Normal 22-30 [facility] Comment on above: Performed By: #### C RP, RFP, CBC, FERR #### [address] [place] [address] Creatinine [Mass/Vol] 1.08 mg/dL High 0.58-0.96 [facility] Comment on above: Performed By: #### C RP, RFP, CBC, FERR #### [address] [place] [address] eGFR- Amer. >60 Normal >[address] [facility] Comment on above: Performed By: #### C RP, RFP, CBC, FERR #### [address] [place] [address] eGFR-All Other Races 51 . Low >60 [facility] Comment on above: Result Comment: eGFR (Estimated GFR) Units of measure: mL/min/1.73 meters squared eGFR is derived from the reexpressed MDRD Study equation using the following parameters: serum creatinine, age, gender and race. The creatinine assay has been calibrated to be traceable to [employer]. An eGFR <60 mL/min/1.73m2 for >3 months is consistent with chronic kidney disease. Refer to KDOQI guidelines for clinical interpretation. In patients with unstable renal function, e.g. those with acute kidney injury, the eGFR may not accurately reflect actual GFR. Performed By: #### C RP, RFP, CBC, FERR #### [address] [place] [address] Glucose [Mass/Vol] 78 mg/dL Normal 74-[address] [facility] Comment on above: Performed By: #### C RP, RFP, CBC, FERR #### [address] [place] [address] Potassium [Moles/Vol] 4.0 mmol/L Normal 3.7-5.1 [facility] Comment on above: Performed By: #### C RP, RFP, CBC, FERR #### [address] [place] [address] Protein [Mass/Vol] 6.1 g/dL Low 6.6-8.[address] [facility] Comment on above: Performed By: #### C RP, RFP, CBC, FERR #### [address] [place] [address] Sodium [Moles/Vol] 140 mmol/L Normal 136-[address] [facility] Comment on above: Performed By: #### C RP, RFP, CBC, FERR #### [address] [place] [address] Urea nitrogen [Mass/Vol] 24 mg/dL High 7-21 [facility] Comment on above: Result Comment: Felipe mmended reference range provided for this age range is published by the instrument solar applications development engineer. Adult reference ranges have been verified. Performed By: #### C RP, RFP, CBC, FERR #### [address] [place] [address] Expedited [id number] 04-14-20 SARS-CoV-2 (COVID-19) RNA KRISTOFER+probe Ql (Unsp spec) UPPER RESPIRATORY TRACT SWAB Normal [facility] Comment on above: Result Comment: Call ed to and read back by: Mariusz Chandler RN [facility] [address] [facility] 04/14/21 [address] [facility] Performed By: #### E XCOVD ####[facility] [facility], [place] [phone] SARS-CoV-2 (COVID-19) RNA KRISTOFER+probe Ql (Unsp spec) Positive for COVID19 (SARS CoV2) by RT-PCR or equivalent method. Critically abnormal Negative for COVID19 (SARS CoV2) by RT-PCR or equivalent method. [facility] Comment on above: Result Comment: If y our test results are positive, you have tested positive for the presence of the virus associated with COVID-19. This is a stressful time and if you are a [facility] patient, we will support you by closely monitoring your symptoms and providing supportive resources that can ease your recovery. Our team will call you regularly and have you enter your symptoms in MyChart, so that we can provide the best care possible. This test has been authorized by FDA under an Emergency Use Authorization (EUA). Performed By: #### E XCOVD ####[facility] [facility], [place] [phone] NURSING PROGon 04-14-2021 NURSING PROG HNO ID: [id number] Author: Erika Chandler RN Service: ? Author Type: Registered Nurse Type: Nursing Progress Note Filed: 04/14/2021 3:34 PM Note Text: Nursing Progress Note Patient Name: Bo Jacob Patient Location: [id number] 2 Daily Note: 0800: AOx3. Non prod cough, 4L NC. Lungs diminished. External cath wnl. SB-SR on telemetry. Call light within reach. 1530: Covid swab sent to lab. This note was completed by: Erika Chandler [facility] NURSING PROG HNO ID: [id number] Author: Jessie Martinez RN Service: Nursing Author Type: Registered Nurse Type: Nursing Progress Note Filed: 04/14/2021 6:58 AM Note Text: Nursing Progress Note Patient Name: Bo Jacob Patient Location: [id number] 2 Daily Note: Patient vitals sustained on 3 liters of oxygen; continues with continent diarrhea. Slept well for majority of the night. No s/s Of respiratory distress. Medicated with zofran for nausea per request. ? This note was completed by: Jessie Martinez [facility] THERAPY NTon 04-14-2021 THERAPY NT HNO ID: [id number] Author: Destinee Hercules PTA Service: Physical Therapy Author Type: Food Service Team Member Type: Therapy (PT/OT/Speech/Resp) Filed: 04/14/2021 2:59 PM Note Text: Attestation signed by Radha Buck PT at 04/14/2021 3:40 PM I reviewed and agree with the documentation corresponding to this therapy visit. SIGNATURE: Radha Buck PT DATE: April 14, 2021 TIME: 3:40 PM PHYSICAL THERAPY MISSED VISIT SERVICE DATE: 04/14/2021 SERVICE TIME: 1430 to 1440 ROOM: [place] [address] Attempted Treatment. Patient not seen due to Declined. Fatigued after 2 out of town visitors and now requesting bed be d/t diarrhea from iv antibiotic . Pt placed on bed be with call button in reach. Nursing aware . SIGNATURE: Destinee Hercules PTA PATIENT NAME: Bo Jacob DATE: April 14, 2021 TIME: 2:56 PM Normal [facility] C-Reactive Proteinon 021 C-Reactive Protein 9.9 mg/dL High <0.[address] [facility] Comment on above: Performed By: #### C RP ####[facility] [facility], [place] [phone] C-Reactive Protein 14.0 mg/dL High <0.[address] [facility] Comment on above: Performed By: #### C MP, CRP #### [facility] [address] [place] [address] CONSULT PROGon 04-13-2021 CONSULT PROG HNO ID: [id number] Author: Afsaneh Heard MD Service: Infectious Disease [...] much improved AFSANEH HEARD M.D [facility] [phone] Normal [facility] Comp Metabolic Panelon 04-13 Albumin [Mass/Vol] 3.3 g/dL Low 4.0-4.[address] [facility] Comment on above: Performed By: #### C MP, CRP #### [facility] [address] [place] [address] ALP [Catalytic activity/Vol] 76 U/L Normal 34-123 [facility] Comment on above: Performed By: #### C MP, CRP #### [facility] [address] [place] [address] ALT [Catalytic activity/Vol] 28 U/L Normal 0-33 [facility] Comment on above: Performed By: #### C MP, CRP #### [facility] [address] [place] [address] Anion gap [Moles/Vol] 12 mmol/L Normal 0-15 [facility] Comment on above: Performed By: #### C MP, CRP #### [facility] [address] [place] [address] AST [Catalytic activity/Vol] 45 U/L High 0-32 [facility] Comment on above: Performed By: #### C MP, CRP #### [facility] [address] [place] [address] Bilirubin [Mass/Vol] 0.3 mg/dL Normal 0.2-1.3 [facility] Comment on above: Performed By: #### C MP, CRP #### [facility] [address] [place] [address] Calcium [Mass/Vol] 9.1 mg/dL Normal 8.5-10.[address] [facility] Comment on above: Result Comment: Felipe mmended reference range provided for this age range is published by the instrument solar applications development engineer. Adult reference ranges have been verified. Performed By: #### C MP, CRP #### [facility] [address] [place] [address] Chloride [Moles/Vol] 102 mmol/L Normal 97-105 [facility] Comment on above: Performed By: #### C MP, CRP #### [address] [place] [address] CO2 [Moles/Vol] 26 mmol/L Normal 22-30 [facility] Comment on above: Performed By: #### C MP, CRP #### [facility] [address] [place] [address] Creatinine [Mass/Vol] 1.04 mg/dL High 0.58-0.96 [facility] Comment on above: Performed By: #### C MP, CRP #### [facility] [address] [place] [address] eGFR- Amer. >60 Normal >[address] [facility] Comment on above: Performed By: #### C MP, CRP #### [address] [place] [address] eGFR-All Other Races 53 . Low >60 [facility] Comment on above: Result Comment: [...] Performed By: #### C MP, CRP #### [address] [place] [address] Glucose [Mass/Vol] 89 mg/dL Normal 74-[address] [facility] Comment on above: Performed By: #### C MP, CRP #### [address] [place] [address] Potassium [Moles/Vol] 4.2 mmol/L Normal 3.7-5.1 [facility] Comment on above: Performed By: #### C MP, CRP #### [address] [place] [address] Protein [Mass/Vol] 6.6 g/dL Normal 6.6-8.[address] [facility] Comment on above: Performed By: #### C MP, CRP #### [address] [place] [address] Sodium [Moles/Vol] 140 mmol/L Normal 136-[address] [facility] Comment on above: Performed By: #### C MP, CRP #### [address] [place] [address] Urea nitrogen [Mass/Vol] 27 mg/dL High 7-21 [facility] Comment on above: Result Comment: Felipe mmended reference range provided for this age range is published by the instrument solar applications development engineer. Adult reference ranges have been verified. Performed By: #### C MP, CRP #### [address] [place] [address] NURSING PROGon 04-13-2021 NURSING PROG HNO ID: [id number] Author: Erich Castro RN Service: Nursing Author Type: Registered Nurse Type: Nursing Progress Note Filed: 04/13/2021 4:29 PM Note Text: Nursing Progress Note Patient Name: Bo C Mennell Patient Location: [id number] 2 Daily Note:0730 Report obtained at this time Assessment completed, pt has no c/o at this time This note was completed by: Erich [facility] NURSING PROG HNO ID: [id number] Author: Jessie Martinez RN Service: Nursing Author Type: Registered Nurse Type: Nursing Progress Note Filed: 04/13/2021 8:25 AM Note Text: Nursing Progress Note Patient Name: Bo Jacob Patient Location: [id number] 2 Daily Note: Patient vitals sustained on 3 liters of oxygen; continues with continent diarrhea. Slept well for majority of the night. No s/s Of respiratory distress. This note was completed by: Jessie Martinez [facility] C-Reactive Proteinon 021 C-Reactive Protein 27.1 mg/dL High <0.[address] [facility] Comment on above: Performed By: #### C RP, RFP, CBC, FERR #### [facility] [address] [place] [address] CONSULT PROGon 04-12-2021 CONSULT PROG HNO ID: [id number] Author: Afsaneh Heard MD Service: Infectious Disease [...] 11 K AFSANEH HEARD M.D [facility] [phone] Normal [facility] Comp Metabolic Panelon 04-12 Albumin [Mass/Vol] 3.4 g/dL Low 4.0-4.[address] [facility] Comment on above: Performed By: #### C RP, RFP, CBC, FERR #### [facility] [address] [facility] [place] [address] ALP [Catalytic activity/Vol] 69 U/L Normal 34-123 [facility] Comment on above: Performed By: #### C RP, RFP, CBC, FERR #### [facility] [address] [place] [address] ALT [Catalytic activity/Vol] 25 U/L Normal 0-33 [facility] Comment on above: Performed By: #### C RP, RFP, CBC, FERR #### [facility] [address] [place] [address] Anion gap [Moles/Vol] 12 mmol/L Normal 0-15 [facility] Comment on above: Performed By: #### C RP, RFP, CBC, FERR #### [facility] [address] [place] [address] AST [Catalytic activity/Vol] 41 U/L High 0-32 [facility] Comment on above: Performed By: #### C RP, RFP, CBC, FERR #### [facility] [address] [place] [address] Bilirubin [Mass/Vol] 0.2 mg/dL Normal 0.2-1.3 [facility] Comment on above: Performed By: #### C RP, RFP, CBC, FERR #### [address] [place] [address] Calcium [Mass/Vol] 8.6 mg/dL Normal 8.5-10.[address] [facility] Comment on above: Result Comment: Felipe mmended reference range provided for this age range is published by the instrument solar applications development engineer. Adult reference ranges have been verified. Performed By: #### C RP, RFP, CBC, FERR #### [address] [place] [address] Chloride [Moles/Vol] 100 mmol/L Normal 97-105 [facility] Comment on above: Performed By: #### C RP, RFP, CBC, FERR #### [address] [place] [address] CO2 [Moles/Vol] 25 mmol/L Normal 22-30 [facility] Comment on above: Performed By: #### C RP, RFP, CBC, FERR #### [facility] [address] [place] [address] Creatinine [Mass/Vol] 1.03 mg/dL High 0.58-0.96 [facility] Comment on above: Performed By: #### C RP, RFP, CBC, FERR #### [facility] [address] [place] [address] eGFR- Amer. >60 Normal >[address] [facility] Comment on above: Performed By: #### C RP, RFP, CBC, FERR #### [address] [place] [address] eGFR-All Other Races 54 . Low >60 [facility] Comment on above: Result Comment: [...] #### C RP, RFP, CBC, FERR #### [address] [place] [address] Glucose [Mass/Vol] 142 mg/dL High 74-[address] [facility] Comment on above: Performed By: #### C RP, RFP, CBC, FERR #### [address] [place] [address] Potassium [Moles/Vol] 4.2 mmol/L Normal 3.7-5.1 [facility] Comment on above: Performed By: #### C RP, RFP, CBC, FERR #### [address] [place] [address] Protein [Mass/Vol] 6.4 g/dL Low 6.6-8.[address] [facility] Comment on above: Performed By: #### C RP, RFP, CBC, FERR #### [address] [place] [address] Sodium [Moles/Vol] 137 mmol/L Normal 136-[address] [facility] Comment on above: Performed By: #### C RP, RFP, CBC, FERR #### [address] [place] [address] Urea nitrogen [Mass/Vol] 23 mg/dL High 7-21 [facility] Comment on above: Result Comment: Felipe mmended reference range provided for this age range is published by the instrument solar applications development engineer. Adult reference ranges have been verified. Performed By: #### C RP, RFP, CBC, FERR #### [facility] [address] [place] [address] NURSING PROGon 04-12-2021 NURSING PROG HNO ID: [id number] Author: Ondina Mauricio RN Service: ? Author Type: Registered Nurse Type: Nursing Progress Note Filed: 04/12/2021 11:01 AM Note Text: Nursing Progress Note Patient Name: Bo Jacob Patient Location: [id number] 2 Transfer Note: Patient transferred into room/unit 455-2 in stable condition. Actions taken: No futher actions taken at this time. Will continue to monitor and check with patient. This note was completed by: Ondina Mauricio [facility] NURSING PROG HNO ID: [id number] Author: Amber Ramirez RN Service: ? Author Type: Registered Nurse Type: Nursing Progress Note Filed: 04/12/2021 10:20 AM Note Text: Nursing Progress Note Patient Name: Bo Jacob [facility] Daily Note: 0715: assumed care of pt 0800: assessment as charted. Resting comfortably in bed. No s/s of distress, will continue to monitor. Daughter at bedside, updates given. 1015: report called to akshat Andrzej This note was completed by: Amber Ramirez Normal [facility] Procalcitoninon 04-12-2021 Procalcitonin 6.99 ng/mL High <0.09 [facility] Comment on above: Result Comment: For a guided interpretation of test results, please visit the Change in Procalcitonin Calculator, [email or web address]. Performed By: #### C RP, RFP, CBC, FERR #### [facility] [address] [place] [address] THERAPY NTon 04-12-2021 THERAPY NT HNO ID: [id number] Author: Geeta Nazario, PT Service: Physical Therapy Author Type: Physical Therapist Type: Therapy (PT/OT/Speech/Resp) Filed: 04/12/2021 11:28 AM Note Text: Physical Therapy Evaluation SERVICE DATE: 04/12/2021 SERVICE TIME: 0940 to 1030 ROOM: [place] [address] Recommended Discharge Disposition: Subacute/SNF Recommended Discharge Disposition [...] ph (more content not included)... [facility] THERAPY NT HNO ID: [id number] Author: Alice Nava, OT/L Service: Occupational Therapy Author Type: Occupational Therapist Type: Therapy (PT/OT/Speech/Resp) Filed: 04/13/2021 2:12 PM Note Text: Occupational Therapy Evaluation SERVICE DATE: 04/12/2021 SERVICE TIME: 1045 to 1125 ROOM: [place] [address] Recommended Discharge Disposition: Subacute/SNF Recommended Discharge Disposition [...] daily living (ADL) Interventions Provided: Evaluation;Therapeutic Activity (83159);Self Senior Care Management (75226) $ Evaluation-Low (47261) Billed Units: 1 unit Therapeutic Activity (15435) Treatment Minutes: 10 $ Therapeutic Activity (62180) Billed Units: 1 unit Self Senior Care Management (77202) Treatment Minutes: 15 $ Self Senior Care Management (33043) Billed Units: 1 unit Training AND education [...] DATE: April 13, 2021 TIME: 2:11 PM [facility] ALLIED HEALTHon 04-11-2021 ALLIED HEALTH HNO ID: [id number] Author: Leslie Rodriguez Extension Work Instructor Service: Infection Prevention Author Type: ? Type: [...] of Positive Test(s): 04/06/2021 SIGNATURE: Leslie Rodriguez Extension Work Instructor PATIENT NAME: Bo Jacob DATE: April 11, 2021 TIME: 7:49 AM PAGER/CONTACT #: [phone] Infection Prevention after hours/weekend pager: [phone] [facility] C-Reactive Proteinon 021 C-Reactive Protein 25.0 mg/dL High <0.[address] [facility] Comment on above: Performed By: #### C RP, RFP, CBC, FERR #### [place] [id number] [facility], [place] [address] CBCon 04-11-2021 Absolute nRBC <0.01 Normal <0.01 [facility] Comment on above: Performed By: #### C RP, RFP, CBC, FERR #### [place] [id number] [facility], [place] [address] Erythrocyte distribution width (RBC) [Ratio] 13.2 % Normal 11.5-15.0 [facility] Comment on above: Performed By: #### C RP, RFP, CBC, FERR #### [place] [id number] [facility] [address] Hematocrit (Bld) [Volume fraction] 35.6 % Low 36.0-46.0 [facility] Comment on above: Performed By: #### C RP, RFP, CBC, FERR #### [address] [place] [address] Hemoglobin (Bld) [Mass/Vol] 11.7 g/dL Normal 11.5-15.5 [facility] Comment on above: Performed By: #### C RP, RFP, CBC, FERR #### [address] [place] [address] MCH 30.2 pG Normal 26.0-34.0 [facility] Comment on above: Performed By: #### C RP, RFP, CBC, FERR #### [address] [place] [address] MCHC (RBC) [Mass/Vol] 32.9 g/dL Normal 30.5-36.0 [facility] Comment on above: Performed By: #### C RP, RFP, CBC, FERR #### [address] [place] [address] MCV (RBC) [Entitic vol] 91.8 fL Normal 80.0-100.0 [facility] Comment on above: Performed By: #### C RP, RFP, CBC, FERR #### [address] [place] [address] Platelet mean volume (Bld) [Entitic vol] 9.8 fL Normal 9.0-12.7 [facility] Comment on above: Performed By: #### C RP, RFP, CBC, FERR #### [address] [place] [address] Platelets (Bld) [#/Vol] 178 10*3/uL Normal 150-400 [facility] Comment on above: Performed By: #### C RP, RFP, CBC, FERR #### [facility] [address] [place] [address] RBC (Bld) [#/Vol] 3.88 10*6/uL Low 3.90-5.20 [facility] Comment on above: Performed By: #### C RP, RFP, CBC, FERR #### [facility] [address] [place] [address] WBC (Bld) [#/Vol] 11.65 10*3/uL High 3.70-11.00 [facility] Comment on above: Performed By: #### C RP, RFP, CBC, FERR #### [facility] [address] [facility] [place] [address] CONSULTon 04-11-2021 CONSULT HNO ID: [id number] Author: Cresencio Wylie RPh Service: Pharmacy Author [...] have any questions, please contact pharmacy at [phone]. Age: [age] year old Allergies: ALLERGIES Allergen [...] Levels: No results found for: MICHAEL Wylie [facility] Normal [facility] CONSULT HNO ID: [id number] Author: Afsaneh Heard MD Service: Infectious Disease Author Type: Physician Type: Consults Filed: 04/12/2021 7:44 AM Note Text: [facility] Consults ORIGINATOR: MD CECIL Lopez THERESE C ACCTNUM: [id number] SERVICE: ICU LOCATION: [place] [address] ATTENDING PHYSICIAN: Rolo Oates MD DATE OF SERVICE: 04/11/2021 TIME OF SERVICE: 10:05 AM REASON FOR REFERRAL: Severe COVID infection. HISTORY: This 65-year-old female with past medical history significant for breast cancer, who is currently on Aromasin, who presented to [facility] with concerns about worsening respiratory status. [...] ICU, intubated, in a local hospital in [place]. REVIEW OF SYSTEMS: As in History of [...] much for the referral. MD RASHIDA LopezJ:MedSarah /[id number] [facility] CONSULT HNO ID: [id number] Author: Afsaneh Heard MD Service: Infectious Disease [...] AND continue supportive measures AFSANEH HEARD M.D [phone] April 11, 2021 10:05 AM [facility] Comp Metabolic Panelon 04-11 Albumin [Mass/Vol] 3.5 g/dL Low 4.0-4.[address] [facility] Comment on above: Performed By: #### C RP, RFP, CBC, FERR #### [facility] [address] [place] [address] ALP [Catalytic activity/Vol] 74 U/L Normal 34-123 [facility] Comment on above: Performed By: #### C RP, RFP, CBC, FERR #### [facility] [address] [place] [address] ALT [Catalytic activity/Vol] 24 U/L Normal 0-33 [facility] Comment on above: Performed By: #### C RP, RFP, CBC, FERR #### [facility] [address] [place] [address] Anion gap [Moles/Vol] 14 mmol/L Normal 0-15 [facility] Comment on above: Performed By: #### C RP, RFP, CBC, FERR #### [facility] [address] [place] [address] AST [Catalytic activity/Vol] 50 U/L High 0-32 [facility] Comment on above: Performed By: #### C RP, RFP, CBC, FERR #### [address] [place] [address] Bilirubin [Mass/Vol] 0.2 mg/dL Normal 0.2-1.3 [facility] Comment on above: Performed By: #### C RP, RFP, CBC, FERR #### [address] [place] [address] Calcium [Mass/Vol] 8.7 mg/dL Normal 8.5-10.[address] [facility] Comment on above: Result Comment: Felipe mmended reference range provided for this age range is published by the instrument solar applications development engineer. Adult reference ranges have been verified. Performed By: #### C RP, RFP, CBC, FERR #### [address] [place] [address] Chloride [Moles/Vol] 102 mmol/L Normal 97-105 [facility] Comment on above: Performed By: #### C RP, RFP, CBC, FERR #### [address] [place] [address] CO2 [Moles/Vol] 19 mmol/L Low 22-30 [facility] Comment on above: Performed By: #### C RP, RFP, CBC, FERR #### [address] [place] [address] Creatinine [Mass/Vol] 1.10 mg/dL High 0.58-0.96 [facility] Comment on above: Performed By: #### C RP, RFP, CBC, FERR #### [address] [place] [address] eGFR- Amer. >60 Normal >[address] [facility] Comment on above: Performed By: #### C RP, RFP, CBC, FERR #### [address] [place] [address] eGFR-All Other Races 50 . Low >60 [facility] Comment on above: Result Comment: [...] #### C RP, RFP, CBC, FERR #### [address] [place] [address] Glucose [Mass/Vol] 110 mg/dL High 74-[address] [facility] Comment on above: Performed By: #### C RP, RFP, CBC, FERR #### [address] [place] [address] Potassium [Moles/Vol] 4.2 mmol/L Normal 3.7-5.1 [facility] Comment on above: Performed By: #### C RP, RFP, CBC, FERR #### [address] [place] [address] Protein [Mass/Vol] 6.4 g/dL Low 6.6-8.[address] [facility] Comment on above: Performed By: #### C RP, RFP, CBC, FERR #### [address] [place] [address] Sodium [Moles/Vol] 135 mmol/L Low 136-[address] [facility] Comment on above: Performed By: #### C RP, RFP, CBC, FERR #### [address] [place] [address] Urea nitrogen [Mass/Vol] 18 mg/dL Normal 7-21 [facility] Comment on above: Result Comment: Felipe mmended reference range provided for this age range is published by the instrument solar applications development engineer. Adult reference ranges have been verified. Performed By: #### C RP, RFP, CBC, FERR #### [facility] [address] [place] [address] Ferritinon 04-11-2021 Ferritin [Mass/Vol] 500.0 ng/mL High 14.7-205.1 [facility] Comment on above: Performed By: #### C RP, RFP, CBC, FERR #### [facility] [address] [place] [address] HISTORY PHYSICALon HISTORY PHYSICAL HNO ID: [id number] Author: Gavin Gonzalez MD Service: Hospital Medicine Author Type: Physician Type: HANDP Filed: 04/11/2021 6:33 AM Note Text: DEPARTMENT OF HOSPITAL MEDICINE HISTORY AND PHYSICAL EXAMINATION PATIENT NAME: Bo Jacob LENGTH OF STAY: 0 HOSPITAL ROOM: [place] [address]/[place] [address]* ; AGE: 2 1955; 65 year old ADMITTING PHYSICIAN: Sukumar Castellon MD DATE OF ADMISSION: No admission date for patient encounter. SERVICE - Hospital Medicine Patient admitted to hospitalist team. 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 She presented with a chief complaint of shortness of breath and cough reports symptoms have been going on for almost a week and see testing COVID-19 on 04/06/21. Her had similar symptoms and was diagnosed with COVID-19 infection and he is currently admitted at [facility] in the ICU. [...] consistent with viral pneumonitis. On arrival to [facility] O2 inc to 4-5 lit to [...] non-diste (more content not included)... [facility] NURSING PROGon 04-11-2021 NURSING PROG HNO ID: [id number] Author: Jessie Martinez RN Service: Nursing Author Type: Registered Nurse Type: Nursing Progress Note Filed: 04/11/2021 6:07 AM Note Text: Nursing Progress Note Patient Name: Bo Jacob Patient Location: [id number] Daily Note: Patient admitted and assessed [...] was completed by: Jessie Martinez [facility] Procalcitoninon 04-11-2021 Procalcitonin 7.12 ng/mL High <0.09 [facility] Comment on above: Result Comment: For a guided interpretation of test results, please visit the Change in Procalcitonin Calculator, [email or web address]. Performed By: #### C RP, RFP, CBC, FERR #### [facility] [address] [facility] [place] [address] Staph aureus PCRon 1 MRSA PCR Negative [facility] Comment on above: Performed By: #### C RP, RFP, CBC, FERR #### [facility] [address] [facility] [place] [address] S aureus Spec Source Nasal [facility] Comment on above: Performed By: #### C RP, RFP, CBC, FERR #### [facility] [address] [place] [address] Staph aureus PCR Positive Critically abnormal [facility] Comment on above: Performed By: #### C RP, RFP, CBC, FERR #### [facility] [address] [place] [address] Laboratory - Chemistry and C hemistry - challengeon 02-15-2021 Magnesium [Mass/Vol] 2.1 mg/dL 1.6-2.6 [facility] Basophil percentageon 2020 Basophil percentage 4.3 mg/dL 2.5-4.9 [facility] Trichomonas screening teston 01-25-2021 Phosphorus Level 4.3 mg/dL 2.5-4.9 [facility] ALLIED HEALTHon 06-10-2020 ALLIED HEALTH HNO ID: [id number] Author: Nicolle (Ct) Patch, CT Service: Radiology Author Type: Clinical Stage Set Up Worker Type: Allied Health Filed: 06/10/2020 4:12 PM [...] June 10, 2020 TIME: 4:12 PM Normal [facility] CBC and Differentialon 06-10 Abs Baso 0.05 k/uL Normal <0.11 [facility] Comment on above: Performed By: #### C MP, CBCDIF ####[facility] [address] [place] [address] Abs [place] 0.42 k/uL Normal <0.87 [facility] Comment on above: Performed By: #### C MP, CBCDIF ####[facility] [address] [place] [address] Abs Neut 4.78 k/uL Normal 1.45-7.50 [facility] Comment on above: Performed By: #### C MP, CBCDIF ####[facility] [address] [place] [address] Absolute nRBC <0.01 Normal <0.01 [facility] Comment on above: Performed By: #### C MP, CBCDIF ####[place] [address] Basophils/100 WBC (Bld) 0.7 % Normal [facility] Comment on above: Performed By: #### C MP, CBCDIF ####[place] [address] DTYPE Auto Diff Normal [facility] Comment on above: Performed By: #### C MP, CBCDIF ####[place] [address] Eosinophils (Bld) [#/Vol] 0.10 10*3/uL Normal <0.46 [facility] Comment on above: Performed By: #### C MP, CBCDIF ####[place] [address] Eosinophils/100 WBC (Bld) 1.4 % Normal [facility] Comment on above: Performed By: #### C MP, CBCDIF ####[place] [address] Erythrocyte distribution width (RBC) [Ratio] 13.2 % Normal 11.5-15.0 [facility] Comment on above: Performed By: #### C MP, CBCDIF ####[place] [address] Hematocrit (Bld) [Volume fraction] 46.2 % High 36.0-46.0 [facility] Comment on above: Performed By: #### C MP, CBCDIF ####[facility] [address] [place] [address] Hemoglobin (Bld) [Mass/Vol] 15.0 g/dL Normal 11.5-15.5 [facility] Comment on above: Performed By: #### C MP, CBCDIF ####[facility] [address] [place], [place] [id number] Lymphocytes (Bld) [#/Vol] 1.71 10*3/uL Normal 1.00-4.00 [facility] Comment on above: Performed By: #### C MP, CBCDIF ####[facility] [address] [place] [address] Lymphocytes/100 WBC (Bld) 24.2 % Normal [facility] Comment on above: Performed By: #### C NIURKA, CBCDIF ####[facility] [address] [place] [address] MCH (RBC) [Entitic mass] 30.6 pG Normal 26.0-34.0 [facility] Comment on above: Performed By: #### C MP, CBCDIF ####[facility] [address] [place] [address] MCHC (RBC) [Mass/Vol] 32.5 g/dL Normal 30.5-36.0 [facility] Comment on above: Performed By: #### C MP, CBCDIF ####[facility] [address] [place], [place] [id number] MCV (RBC) [Entitic vol] 94.3 fL Normal 80.0-100.0 [facility] Comment on above: Performed By: #### C MP, CBCDIF ####[facility] [address] [place], [place] [id number] Monocytes/100 WBC (Bld) 5.9 % Normal [facility] Comment on above: Performed By: #### C MP, CBCDIF ####[facility] [address] [place], [place] [phone] Neutrophils/100 WBC (Bld) 67.8 % Normal [facility] Comment on above: Performed By: #### C NIURKA, CBCDIF ####[facility] [address] [place], [place] [phone] NRBCs 0.0 /100 WBC Normal 0 [facility] Comment on above: Performed By: #### C MP, CBCDIF ####[facility] [address] [place] [address] Platelet mean volume (Bld) [Entitic vol] 9.8 fL Normal 9.0-12.7 [facility] Comment on above: Performed By: #### C MP, CBCDIF ####[facility] [address] [place] [address] Platelets (Bld) [#/Vol] 260 10*3/uL Normal 150-400 [facility] Comment on above: Performed By: #### C MP, CBCDIF ####[facility] [address] [place] [address] RBC (Bld) [#/Vol] 4.90 10*6/uL Normal 3.90-5.20 [facility] Comment on above: Performed By: #### C MP, CBCDIF ####[facility] [address] [place] [address] WBC (Bld) [#/Vol] 7.06 10*3/uL Normal 3.70-11.00 [facility] Comment on above: Performed By: #### C NIURKA, CBCDIF ####[facility] [address] [place] [address] CT BRAIN WO IVCONon 06-10-20 CT BRAIN WO IVCON * * *Final Report* * * DATE OF EXAM: Jun 10 2020 4:11PM [facility] [place] [place] [address] - CT BRAIN WO IVCON / [...] extracranial soft tissues are grossly normal. NECK: Marine Electrician Apprentice (topogram) images: Unremarkable Postop: There is a [...] CT BRAIN. NORMAL NECK AND INTRACRANIAL CTA. Emergency Specialist: RODO Transcribe Date/Time: Jun 10 2020 4:16P Dictated by : ANGIE BARCENAS MD This examination was interpreted and the report reviewed and electronically signed by: ANGIE BARCENAS MD on Jun 10 2020 4:22PM EST [id number] [facility] CTA HEAD W IVCONon 0 CTA HEAD W IVCON * * *Final Report* * * DATE OF EXAM: Jun 10 2020 4:11PM [facility] [place] [place] 0022 - CTA HEAD W IVCON / [...] extracranial soft tissues are grossly normal. NECK: Marine Electrician Apprentice (topogram) images: Unremarkable Postop: There is a [...] CT BRAIN. NORMAL NECK AND INTRACRANIAL CTA. Emergency Specialist: RODO Transcribe Date/Time: Jun 10 2020 4:16P Dictated by : ANGIE BARCENAS MD This examination was interpreted and the report reviewed and electronically signed by: ANGIE BARCENAS MD on Jun 10 2020 4:22PM EST [id number] [facility] CTA NECK W IVCONon 0 CTA NECK W IVCON * * *Final Report* * * DATE OF EXAM: Jun 10 2020 4:11PM [facility] [place] [place] 0024 - CTA NECK W IVCON / [...] extracranial soft tissues are grossly normal. NECK: Marine Electrician Apprentice (topogram) images: Unremarkable Postop: There is a [...] CT BRAIN. NORMAL NECK AND INTRACRANIAL CTA. Emergency Specialist: RODO Transcribe Date/Time: Jun 10 2020 4:16P Dictated by : ANGIE BARCENAS MD This examination was interpreted and the report reviewed and electronically signed by: ANGIE BARCENAS MD on Jun 10 2020 4:22PM EST [id number] Normal [facility] Comp Metabolic Panelon 06-10 Albumin [Mass/Vol] 4.6 g/dL Normal 3.9-4.9 [facility] Comment on above: Performed By: #### C NIURKA CBCDIF ####[facility] [address] [place] [address] ALP [Catalytic activity/Vol] 88 U/L Normal 34-123 [facility] Comment on above: Performed By: #### C NIURKA CBCDIF ####[facility] [address] [place] [address] ALT [Catalytic activity/Vol] 13 U/L Normal 7-38 [facility] Comment on above: Performed By: #### C NIURKA, CBCDIF ####[facility] [address] [place] [address] Anion gap [Moles/Vol] 12 mmol/L Normal 9-18 [facility] Comment on above: Performed By: #### C NIURKA, CBCDIF ####[facility] [address] [place] [address] AST [Catalytic activity/Vol] 16 U/L Normal 13-35 [facility] Comment on above: Performed By: #### C NIURKA, CBCDIF ####[facility] [address] [place] [address] Bilirubin [Mass/Vol] 0.6 mg/dL Normal 0.2-1.3 [facility] Comment on above: Performed By: #### C NIURKA, CBCDIF ####[facility] [address] [place] [address] Calcium [Mass/Vol] 9.4 mg/dL Normal 8.5-10.2 [facility] Comment on above: Performed By: #### C NIURKA, CBCDIF ####[facility] [address] [place] [address] Chloride [Moles/Vol] 106 mmol/L High 97-105 [facility] Comment on above: Performed By: #### C NIURKA, CBCDIF ####[facility] [address] CO2 [Moles/Vol] 25 mmol/L Normal 22-30 [facility] Comment on above: Performed By: #### C NIURKA, CBCDIF ####[facility] [address] [place] [address] Creatinine [Mass/Vol] 0.84 mg/dL Normal 0.58-0.96 [facility] Comment on above: Performed By: #### C NIURKA, CBCDIF ####[facility] [address] [place] [address] eGFR- Amer. >60 Normal [facility] Comment on above: Performed By: #### C NIURKA, CBCDIF ####[facility] [address] [place] [id number] GFR/1.73 sq M predicted among non-blacks MDRD (S/P/Bld) [Vol rate/Area] mL/min/{1.73_m2} Normal [facility] Comment on above: Result Comment: [...] GFR. Performed By: #### C MP, CBCDIF ####[facility] [address] [place] [address] Glucose [Mass/Vol] 91 mg/dL Normal 74-99 [facility] Comment on above: Result Comment: The [place] Diabetes Association (ADA) provides guidance for cutoff [...] Standards of Medical Care in Diabetes 2016, [place] [employer]. Diabetes Care. 2016.39(Suppl 1). Performed By: #### C MP, CBCDIF ####[facility] [address] [place] [phone] Potassium [Moles/Vol] 4.1 mmol/L Normal 3.7-5.1 [facility] Comment on above: Performed By: #### C MP, CBCDIF ####[facility] [address] [place] [address] Protein [Mass/Vol] 6.7 g/dL Normal 6.3-8.0 [facility] Comment on above: Performed By: #### C MP, CBCDIF ####[facility] [address] [place] [phone] Sodium [Moles/Vol] 143 mmol/L Normal 136-144 [facility] Comment on above: Performed By: #### C MP, CBCDIF ####[facility] [address] [place] [address] Urea nitrogen [Mass/Vol] 12 mg/dL Normal 7-21 [facility] Comment on above: Performed By: #### C NIURKA, CBCDIF ####[facility] [address] [place] [address] ED NOTEon 06-10-2020 ED NOTE HNO ID: [id number] Author: Catrina (Rn) BERNABE [place] Service: ? Author Type: Registered Nurse Type: ED Notes Filed: 06/10/2020 4:46 PM Note Text: Discharged pt. with diagnosis of headache. Discharge and follow up instructions given. Pt. verbalized understanding of discharge instructions. Pt. has no further questions and/or concerns at this time. He[place]ock d/c'd. Pt. ambulates with steady gait. Normal [facility] ED NOTE HNO ID: [id number] Author: Catrina Zavala) BERNABE Stockton Service: ? Author Type: Registered Nurse Type: ED Notes Filed: 06/10/2020 3:42 PM Note Text: Pt placed on 1L NC per verbal order from Abelardo ROY. [facility] ED NOTE HNO ID: [id number] Author: Catrina (Rn) BERNABE [place] Service: ? [...] light within reach, ID, allergy band on. [facility] ED NOTE HNO ID: [id number] Author: Ann (Rn) BERNABE Ward Service: Nursing [...] denies vision changes, balance problem, or weakness [facility] ED PROV NOTEon 06-10-2020 ED PROV NOTE HNO ID: [id number] Author: Hans Reynolds Service: Emergency Medicine Author [...] strength in both upper and lower extremities, dsblty-af-nfkb intact, uwyk-cc-qyik intact, rapid alternative movements intact. Psychiatric: Behavior: [...] CT BRAIN. NORMAL NECK AND INTRACRANIAL CTA. Emergency Specialist: RODO Transcribe Date/Time: Jun 10 2020 4:16P Dictated by : ANGIE BARCENAS MD This examination was interpreted and the report reviewed and electronically signed by: ANGIE BARCENAS MD on Jun 10 2020 4:22PM EST CTA HEAD W IVCON Final Result IMPRESSION: NORMAL NONCONTRAST CT BRAIN. NORMAL NECK AND INTRACRANIAL CTA. Emergency Specialist: PSCMark Transcribe Date/Time: Jun 10 2020 4:16P Dictated by : ANGIE BARCENAS MD This examination was interpreted and the report reviewed and electronically signed by: ANGIE BARCENAS MD on Jun 10 2020 4:22PM EST CTA NECK W IVCON Final Result IMPRESSION: NORMAL NONCONTRAST CT BRAIN. NORMAL NECK AND INTRACRANIAL CTA. Emergency Specialist: PSC Transcribe Date/Time: Jun 10 2020 4:16P [...] Abs Lymph 1.71 1.00 - 4.00 k/uL [place]% 5.9 % Abs [place] 0.42 <0.87 k/uL [place]% 1.4 % Abs [...] in writing to patient (patient guardian / distribution sales representative), who verbalized understanding. The attending who evaluated and managed this patient was Dr. Reynolds. This note was partially generated using LocAsian voice recognition system, and there may be some incorrect words, spellings, and punctuation that were not noted in checking the note before saving SIGNATURE: SHAW Graham 06/10/20 [id number] Attending Note: I have personally performed a qymk-lu-qexz assessment of the patient and have reviewed [...] or worse symptoms Hans Reynolds 06/10/20 1931 [facility] ANES POSTPROC EVALon 020 ANES POSTPROC EVAL HNO ID: [id number] Author: Leo Velasquez Service: ? Author Type: Anesthesiologist Type: Anesthesia Postprocedure Evaluation Filed: 06/08/2020 4:16 PM Note Text: POST ANESTHESIA EVALUATION NOTE : 1955 Procedure Summary Date: 06/08/20 Room / Location: AL OR / AL OR Anesthesia Start: 1024 Anesthesia Stop: 1114 [...] June 08, 2020 TIME: 4:16 PM CSN: [id number] [facility] ANES PRE-OPon 06-08-2020 ANES PRE-OP HNO ID: [id number] Author: Leo Velasquez Service: ? Author Type: [...] June 08, 2020 TIME: 9:21 AM CSN: [id number] [facility] BRIEF OP NOTon 06-08-2020 BRIEF OP NOT HNO ID: [id number] Author: Jose Haro Service: General Surgery Author Type: Physician Type: Brief Op Note Filed: 06/08/2020 11:16 AM Note Text: BRIEF OPERATIVE NOTATION FOR SURGICAL PROCEDURE. Bo Jacob 1955 [id number] female LOG ID: [id number] Surgery/Procedure Date: 06/08/2020 Incision/Procedure Start Time: 10:33 AM Incision Close/Procedure End Time: 11:03 AM Surgeon(s)/Proceduralist(s) and Metal Base Blocker(s): Surgeon(s) and Role: * Jose Haro - Primary REFERRING PHYSICIAN: Outpatient DEPT: BY[facility] PROVIDER: Flor POS: [id number] ANESTHESIA: Monitored Anesthesia Care ASA CLASS: 3 - Severe DIAGNOSIS: right breast cancer PROCEDURE: left Subclavian portacath - 62211-563 and Fluoroscopic for vascular access - 52342-573-30 IVF: 700 EBL: 10 Specimens: ADDITIONAL DIAGNOSES: FINDINGS: COMPLICATIONS: None PMHx - PAST MEDICAL HISTORY Diagnosis Date - Arthritis - Breast cancer (HCC) 04/07/2020 - Ectopic fetus tube removed - Hypertension - Irregular heart beat COMORBIDITIES - Current Cancer Therapy Post Op Occurrences - None Wound Classification - Clean Operative note dictated in the dictation system. - [id number] Jose Haro MD [facility] HISTORY PHYSICALon 0 HISTORY PHYSICAL HNO ID: [id number] Author: Jose Haro Service: General Surgery Author [...] ? Planned Procedure: left Subclavian portacath - 66508-772 and Fluoroscopic for vascular access - 48846-953-49 ? Patient Weight Last 1 Encounter Wt Readings: Date: Wt: 05/31/2020 81.2 kg (179 lb) ? Antibiotic: Ancef 2gm IVPB space systems operations craftsman to OR ? Planned Anesthetic: MAC with local ? I ??? plan to access the port at the time of surgery. ? The patient was offered a surgery/procedure at a [facility] facility. The surgeon/proceduralist and patient have [...] encounter diagnosis) ? __ Jose Haro MD [facility] OPERATIVE NOon 06-08-2020 OPERATIVE NO HNO ID: [id number] Author: Jose Haro Service: General Surgery Author Type: Physician Type: Operative Report Filed: 06/08/2020 1:08 PM Note Text: [facility] - Operative Report BO JACOB : 1955 AGE: 64. SEX: F PATIENT TYPE: A HOSP C: [facility] LOCATION: [facility] ATTENDING PHYSICIAN: Jose Haro M.D. CSN NUMBER: [id number] DATE OF SURGERY/PROCEDURE: 06/08/2020 INCISION/PROCEDURE START TIME: 10:32 a.m. INCISION CLOSE/PROCEDURE END TIME: 11:03 a.m. PREOPERATIVE DIAGNOSIS: Right breast cancer, need for IV access. POSTOPERATIVE DIAGNOSIS: Left subclavian Port-A-Cath placement with fluoroscopy. SURGEON: Jose Haro M.D. MARRIAGE COUNSELOR: SURGERY/PROCEDURE: Left subclavian portacath placement with fluoroscopy ANESTHESIA: Local MAC. LOG ID: [id number]. ANESTHESIOLOGIST: Leo Velasquez. ASA: 3. INTRAVENOUS FLUIDS: 700 mL. ESTIMATED BLOOD LOSS: 10 mL. URINE OUTPUT: No catheter. FINDINGS: As described above. SPECIMENS: None. DRAINS: None. COMPLICATIONS: None. DISPOSITION: Patient was taken to PACU in stable condition. IMPLANTS: PowerPort reference #[id number], lot #[id number], expires 06/18/2021. DESCRIPTION OF PROCEDURE: Patient's left [...] for postprocedure chest x-ray. Jose Haro M.D. RG:[id number] /[id number] Normal [facility] XR CHEST 1V FRONTAL [...] silhouette. IMPRESSION: Status post LEFT Mediport placement Emergency Specialist: RODO Transcribe Date/Time: Jun 08 2020 12:06P Dictated by : JESSIE LOUIS MD This examination was interpreted and the report reviewed and electronically signed by: JESSIE LOUIS MD on Jun 08 2020 12:07PM EST [id number] [facility] HOSPon 05-31-2020 HOSP Patient:Emmy Jacob MRN: Height:5' [...] for the following basenames: K,HCT Progress Notes ([facility]): Estuardo Chaudhari 05/31/2020 3:48 PM Signed 06-08-2020 Port placement Progress Notes ([facility]): Raymond Byrne SHIELA 05/31/2020 [...] procedure. Planned Procedure: left Subclavian portacath - 57004-242 and Fluoroscopic for vascular access - 81282-933-32 Patient Weight Last 1 Encounter Wt Readings: Date: Wt: 05/31/2020 81.2 kg (179 lb) Antibiotic: Ancef 2gm IVPB space systems operations craftsman to OR Planned Anesthetic: MAC with local I ??? plan to access the port at the time of surgery. The patient was offered a surgery/procedure at a [facility] facility. The surgeon/proceduralist and patient have [...] (primary encounter diagnosis) __ Jose Haro MD [facility] ALLIED HEALTH 04-22-2020 ALLIED HEALTH HNO ID: [id number] Author: GAVI Avila (Ct) Service: Nuclear Medicine Author Type: Clinical Stage Set Up Worker Type: Allied Health Filed: 04/22/2020 11:06 AM [...] to IP transport area for return to [facility]/ICU/ED. A Diagnostic radioactive procedure has taken place, with no further precautions necessary other than routine body substance precautions. More information regarding radiation safety can be found using this link: [email or web address] %[email or web address] f SIGNATURE: GAVI Avila PATIENT NAME: Bo Jacob DATE: April 22, 2020 TIME: 11:05 AM PAGER/CONTACT #: [facility] ANES POSTPROC EVALon 020 ANES POSTPROC EVAL HNO ID: [id number] Author: Raymond Rocha Service: ? Author Type: Anesthesiologist Type: Anesthesia Postprocedure Evaluation Filed: 04/22/2020 4:20 PM Note Text: POST ANESTHESIA EVALUATION NOTE : 1955 Procedure Summary Date: 04/22/20 Room / Location: AL OR04 / AL OR Anesthesia Start: 1242 Anesthesia Stop: 1419 [...] April 22, 2020 TIME: 4:20 PM CSN: [id number] [facility] ANES PRE-OPon 04-22-2020 ANES PRE-OP HNO ID: [id number] Author: Raymond Rocha Service: ? Author Type: [...] April 22, 2020 TIME: 12:18 PM CSN: [id number] [facility] BRIEF OP NOTon 04-22-2020 BRIEF OP NOT HNO ID: [id number] Author: Jose Haro Service: General Surgery Author Type: Physician Type: Brief Op Note Filed: 04/22/2020 2:31 PM Note Text: BRIEF OPERATIVE NOTATION FOR SURGICAL PROCEDURE. Bo Jacob 1955 [id number] female LOG ID: [id number] Surgery/Procedure Date: 04/22/2020 Incision/Procedure Start Time: 1:13 PM Incision Close/Procedure End Time: 2:09 PM Surgeon(s)/Proceduralist(s) and Metal Base Blocker(s): Surgeon(s) and Role: * Jose Haro - Primary Registered Nurse Gate Services Supervisor: Marisabel (Rn) BERNABE Cantrell REFERRING PHYSICIAN: Outpatient DEPT: WQ PROVIDER: [facility] POS: [id number] ANESTHESIA: General ASA CLASS: 3 - Severe DIAGNOSIS: right upper inner breast cancer PROCEDURE: right preoperative stereotactic guided needle placement - 29146 LUMPECTOMY, WITH SENTINEL LYMPH NODE BIOPSY, Radiotracter identification - [id number], 07535-800-84, 95253-?, 60196, 49572-729, 11613 IVF: 800 EBL: 25 Specimens: right axillary SLNBx, Right lumpectomy ADDITIONAL DIAGNOSES: FINDINGS: good radiographic margins COMPLICATIONS: None PMHx - PAST MEDICAL HISTORY Diagnosis Date - Arthritis - Breast cancer (HCC) 04/07/2020 - Ectopic fetus tube removed - Irregular heart beat COMORBIDITIES - None Post Op Occurrences - None Wound Classification - Clean Operative note dictated in the dictation system. 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 ? RESULTS Estrogen Receptor (ER) [...] [facility] The surgeon/proceduralist and patient have discussed [...] right preoperative stereotactic guided needle placement - 03691 LUMPECTOMY, WITH SENTINEL LYMPH NODE BIOPSY, Radiotracter identification - [id number], 47477-674-09, 22515-?, 58364, 82051-016, 17448 ? Anticipated Anesthetic: General ? Patient weight: Blood pressure 136/85, pulse 97, height 160 cm (5' 3), weight 81.2 kg (179 lb). BMI: Body mass index is 31.71 kg/m?. ? Planned antibiotic: Ancef 2gm IVPB space systems operations craftsman to OR ? SCDs needed - Yes ? Metal Base Blocker Needed - Yes ? Diagnoses: (C50.411) Malignant neoplasm of upper-outer quadrant of right female breast, unspecified estrogen receptor status (HCC) (primary encounter diagnosis) ? ? Return to Clinic: The patient is instructed to follow-up with me 1 week post operatively. ? __ Jose Haro MD [facility] DIAGNOSTIC RTon 04-22-20 20 [facility] DIAGNOSTIC RT * * *Final Report* * * DATE OF EXAM: Apr 22 2020 11:26AM CHRIS 0626 - [facility] DIAGNOSTIC RT / PROCEDURE REASON: s/p needle localization * * * * Physician Interpretation * * * * #[id number] - [facility] DIAGNOSTIC RT #[id number] - [facility] SURGICAL BREAST SPECIMEN RT UNILATERAL RIGHT DIGITAL DIAGNOSTIC MAMMOGRAM WITH CAD: 04/22/2020 HISTORY: S/P Needle Localization S/P Lumpectomy. RESULT: TECHNIQUE: The study was acquired using full field digital technology and interpreted from soft copy. Current study was also evaluated with a Computer Aided Detection (CAD). Comparison is made to exams dated: 04/05/2020 mammogram, 04/04/2020 mammogram - [facility], 10/24/2017 mammogram, and 10/11/2017 mammogram. There [...] exams dated: 04/05/2020 mammogram, 04/04/2020 mammogram - [facility], 10/24/2017 mammogram, and 10/11/2017 mammogram. RIGHT BREAST SPECIMEN RADIOGRAPH: Indication: Biopsy-proven carcinoma Result: A specimen submitted for radiography includes the mass noted on the preoperative imaging. IMPRESSION: SPECIMEN IMPRESSION: BIRADS 6 - Known malignancy. Completed excisional breast biopsy. Recommendation: Correlation with pathology result from biopsy specimen. Cindy villalobos/charlene:04/22/2020 16:35:05 Pipe Tester(s): RT Yunior(R)(M), [facility] Mammogram BI-RADS: Post-procedure mammogram for marker [...] Health, Family Medicine, and Medical/Surgical Oncology, the [facility] has carefully reviewed the data and [...] their providers when to stop screening mammograms. Emergency Specialist: Charlene Transcribe Date/Time: Apr 22 2020 11:21A Dictated by : CINDY LONDONO MD This examination was interpreted and the report reviewed and electronically signed by: CINDY LONDONO MD on Apr 22 2020 4:35PM EST [id number] Normal [facility] SURGICAL BREAST SPECIMEN RTon 04-22-2020 [facility] SURGICAL BREAST SPECIMEN RT * * *Final Report* * * DATE OF EXAM: Apr 22 2020 1:56PM CHRIS 0639 - [facility] SURGICAL BREAST SPECIMEN RT / PROCEDURE REASON: s/p lumpectomy * * * * Physician Interpretation * * * * #[id number] - [facility] DIAGNOSTIC RT #[id number] - [facility] SURGICAL BREAST SPECIMEN RT UNILATERAL RIGHT DIGITAL DIAGNOSTIC MAMMOGRAM WITH CAD: 04/22/2020 HISTORY: S/P Needle Localization S/P Lumpectomy. RESULT: TECHNIQUE: The study was acquired using full field digital technology and interpreted from soft copy. Current study was also evaluated with a Computer Aided Detection (CAD). Comparison is made to exams dated: 04/05/2020 mammogram, 04/04/2020 mammogram - [facility], 10/24/2017 mammogram, and 10/11/2017 mammogram. There [...] exams dated: 04/05/2020 mammogram, 04/04/2020 mammogram - [facility], 10/24/2017 mammogram, and 10/11/2017 mammogram. RIGHT BREAST SPECIMEN RADIOGRAPH: Indication: Biopsy-proven carcinoma Result: A specimen submitted for radiography includes the mass noted on the preoperative imaging. IMPRESSION: SPECIMEN IMPRESSION: BIRADS 6 - Known malignancy. Completed excisional breast biopsy. Recommendation: Correlation with pathology result from biopsy specimen. Cindy villalobos/charlene:04/22/2020 16:35:05 Pipe Tester(s): Shelley Bravo RT(R)(M), [facility] Mammogram BI-RADS: Post-procedure mammogram for marker [...] Health, Family Medicine, and Medical/Surgical Oncology, the [facility] has carefully reviewed the data and [...] their providers when to stop screening mammograms. Emergency Specialist: Charlene Transcribe Date/Time: Apr 22 2020 11:21A Dictated by : CINDY LONDONO MD This examination was interpreted and the report reviewed and electronically signed by: CINDY LONDONO MD on Apr 22 2020 4:35PM EST [id number] [facility] US LOC BREAST RTon 04-22 [facility] US LOC BREAST RT * * *Final Report* * * DATE OF EXAM: Apr 22 2020 11:31AM TONI 0600 - [facility] US LOC BREAST RT / PROCEDURE REASON: RT BREAST LESION * * * * Physician Interpretation * * * * TECHNIQUE: [facility] US LOC BREAST RT COMPARISON: Mammogram from [...] of a mass in the right breast. Emergency Specialist: RODO Transcribe Date/Time: Apr 22 2020 4:35P Dictated by : CINDY LONDONO MD This examination was interpreted and the report reviewed and electronically signed by: CINDY LONDONO MD on Apr 22 2020 4:42PM EST [id number] [facility] NM LYMPH NODE IMAGINGon Lymphocytes (Bld) [#/Vol] [...] SENTINEL LYMPH NODES IDENTIFIED, RIGHT AXILLARY REGION. Emergency Specialist: PSCB Transcribe Date/Time: Apr 22 2020 11:19A Dictated by : PADMA JIMENEZ MD This examination was interpreted and the report reviewed and electronically signed by: PADMA JIMENEZ MD on Apr 22 2020 11:25AM EST [id number] [facility] OPERATIVE NOon 04-22-2020 OPERATIVE NO HNO ID: [id number] Author: Jose Haro Service: General Surgery Author Type: Physician Type: Operative Report Filed: 04/25/2020 8:36 AM Note Text: [facility] - Operative Report MADELINE JACOBSE Rodriguez : 1955 AGE: 64. SEX: F PATIENT TYPE: A HOSP SVC: GENS LOCATION: [facility] ATTENDING PHYSICIAN: Jose Haro M.D. CSN NUMBER: [id number] DATE OF SURGERY/PROCEDURE: 04/22/2020 INCISION/PROCEDURE START TIME: 1:13 p.m. INCISION CLOSE/PROCEDURE END TIME: 2:09 p.m. PREOPERATIVE DIAGNOSIS: Right upper outer quadrant breast cancer. POSTOPERATIVE DIAGNOSIS: Successful sentinel lymph node biopsy and good radiographic margins at right upper inner quadrant lumpectomy site. SURGEON: Jose Haro M.D. MARRIAGE COUNSELOR: KOBY House. SURGERY/PROCEDURE: Right preoperative stereotactic-guided needle placement, lumpectomy with sentinel lymph node biopsy using radiotracer and Lymphazurin Blue for node identification. ANESTHESIA: LMA. LOG ID: [id number]. ANESTHESIOLOGIST: Dr. Raymond Rocha. ASA: 3. INTRAVENOUS FLUIDS: 800 mL. ESTIMATED BLOOD LOSS: 25. URINE OUTPUT: No catheter. FINDINGS: As described above. SPECIMEN: [place] lymph nodes x2 nodes sent and lumpectomy [...] in stable condition. Marisabel Calvo was my HAND METHOD LASTING MACHINE OPERATOR. She assisted in retraction, visualization, identification of structures and to perform subcuticular closure. There were no surgeons or qualified residents available. Jose Haro M.D. RG:[id number] /[id number] Normal [facility] OPERATIVE NO HNO ID: [id number] Author: Jose Haro Service: General Surgery Author Type: Physician Type: Operative Report Filed: 04/26/2020 10:37 AM Note Text: [facility] - Operative Report BO JACOB : 1955 AGE: 64. SEX: F PATIENT TYPE: A HOSP SV: [facility] LOCATION: [facility] ATTENDING PHYSICIAN: Jose Haro M.D. CSN NUMBER: [id number] DATE OF SURGERY/PROCEDURE: 04/22/2020 INCISION/PROCEDURE START TIME: 1:13 p.m. INCISION CLOSE/PROCEDURE END TIME: 2:09 p.m. PREOPERATIVE DIAGNOSIS: Right upper outer quadrant breast cancer. POSTOPERATIVE DIAGNOSIS: Successful sentinel lymph node biopsy and good radiographic margins at right upper inner quadrant lumpectomy site. SURGEON: Jose Haro M.D. MARRIAGE COUNSELOR: Marisabel Cantrell RN SURGERY/PROCEDURE: Right preoperative stereotactic-guided needle placement, lumpectomy with sentinel lymph node biopsy using radiotracer and Lymphazurin Blue for node identification. ANESTHESIA: LMA. LOG ID: [id number]. ANESTHESIOLOGIST: Dr. Raymond Rocha. ASA: 3. INTRAVENOUS FLUIDS: 800 mL. ESTIMATED BLOOD LOSS: 25. URINE OUTPUT: No catheter. FINDINGS: As described above. SPECIMEN: [place] lymph nodes x2 nodes sent and lumpectomy [...] in stable condition. Marisabel Samuelsbrittanyjocelin was my HAND METHOD LASTING MACHINE OPERATOR. She assisted in retraction, visualization, identification of structures and to perform subcuticular closure. There were no surgeons or qualified residents available. Jose Haro M.D. RG:[id number] revised 04/26/2020 [facility] /[id number] [facility] PT EDon 04-22-2020 PT ED HNO ID: [id number] Author: Jocelyn Anne RN Service: ? Author [...] Signed By: Jocelyn Anne RN In Department: [facility] SURGERY [facility] PT ED HNO ID: [id number] Author: Didier Campa RN Service: Nursing Author [...] Signed By: Didier Campa RN In Department: [facility] SURGERY [facility] PT ED HNO ID: [id number] Author: Randa (Rn) Anne RN Service: Nursing [...] Signed By: Randa Rodríguez RN In Department: [facility] SURGERY [facility] SURGICAL PATHOLOGYon 020 SURGICAL PATHOLOGY Specimen originated from [facility] Specimen #: [id number] Submitting Physician: Jose Haro M.D. FINAL DIAGNOSIS 1. Right axillary lymph node #1-2000 and #2-600, sentinel node biopsies (A) - Three lymph nodes, negative for metastatic malignancy (0/3). 2. 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, measuring 1.8 cm in greatest [...] pT1c Regional Lymph Nodes (pN): Modifier: (sn): [place] node(s) evaluated Category (pN): pN0 Distant metastasis: Distant Metastasis (pM) Not applicable/Not confirmed pathologically in this case Estrogen & progesterone receptors: Previously performed and reported as follows: Estrogen receptor: Positive (>95%, strong) Progesterone receptor: Positive (90%, strong) Specimen number #: [id number] (HER2) ERBB2 Status: Previously performed and reported as follows: HER2:Positive (3+) Specimen number #: [id number] Livestock Rancher Tumor Block: Specify: B9 -- Farzana Mejia [...] margins. No other gross lesions are identified. Livestock Rancher sections are submitted as follows: B1 slice [...] 04/22/20. Murphy 04/26/2020 Gross examination performed at [facility], [address] [place], [place] [address] [id number] Date of Report: 05/02/2020 Date of Procedure: 04/22/2020 Date of Receipt: 04/22/2020 Submitted by: Jose Haro M.D. Location: [facility] Diagnostic interpretation performed at [facility], [address] [place] [address]. CLIA Number: [id number] [facility] HISTORY PHYSICALon 0 HISTORY PHYSICAL HNO ID: [id number] Author: Lorna (Kd Witt Service: ? Author [...] fevers. Neuro: No history of TIA's, stroke, MULTI CARE TECHNICIAN tumor, impaired sensorium, hemiplegia, paraplegia or quadraplegia. No neurological symptoms or problems. Respiratory:(+) Former cigarette smoker No history of current cough or dyspnea, or pneumonia in the past 6 weeks. No history of respiratory/pulmonary symptoms or problems. Cardiovascular: (+) Irregular HB- hx of PVC's, asymptomatic (+) HTN-controlled on Rx. No history of HLD, angina, CHF, MA, cardiac surgery or stent. Denies rest pain, [...] > 1 time per night or hematuria RESOURCING CONSULTANT: Negative for abnormal vaginal bleeding, abnormal vaginal [...] 20, 2020 TIME: 8:48 AM PAGER/CONTACT #: [facility] NURSING PROGon 04-20-2020 NURSING PROG HNO ID: [id number] Author: Consuelo Mullins (Rn) BERNABE Rios Service: [...] Rios RN April 20, 2020 11:07 AM [facility] HOSPon 04-11-2020 HOSP Patient:Emmy Jacob MRN: Height:5' [...] for the following basenames: K,HCT Progress Notes ([facility]): Jose Haro MD 04/11/2020 6:06 PM [...] [facility]. The surgeon/proceduralist and patient have discussed [...] right preoperative stereotactic guided needle placement - 43358 LUMPECTOMY, WITH SENTINEL LYMPH NODE BIOPSY, Radiotracter identification - [id number], [id number], 62805-?, 27628, 23587-639, [id number] Anticipated Anesthetic: General Patient weight: Blood pressure 136/85, pulse 97, height 160 cm (5' 3), weight 81.2 kg (179 lb). BMI: Body mass index is 31.71 kg/m?. Planned antibiotic: Ancef 2gm IVPB space systems operations craftsman to OR SCDs needed - Yes Metal Base Blocker Needed - Yes Diagnoses: (C50.411) Malignant neoplasm of upper-outer quadrant of right female breast, unspecified estrogen receptor status (HCC) (primary encounter diagnosis) Return to Clinic: The patient is instructed to follow-up with me 1 week post operatively. __ Jose Haro MD Previous Version Progress Notes ([facility]): Barbara Shultz RN 04/07/2020 3:10 PM Signed Call from Breast Center Coordinator Ursula Harmon at [facility] to request appointment with Dr Cummings for breast surgery consult. Dr Cummings is out of office from 04/08/20 to 04/27/20. May need to offer anther surgeon due to diagnosis of breast cancer. Message routed to [facility] to assist with calling patient to schedule appointment for Breast Surgery Consult Barbara Shultz RN 04/07/2020 4:19 PM Signed Phyllis Wise You; [place] [facility] Pool 6th Floor; [place] [facility] [employer] [employer] Worker's Pool; Catrina Reeder 3 minutes ago (4:15 PM) Patient is scheduled for 04/11/[address] Haro Encounter closed. Normal [facility] DIAGNOSTIC RTon 04-05-20 [facility] DIAGNOSTIC RT * * *Final Report* * * * * * SEE BOTTOM OF REPORT FOR ADDENDED TEXT * * * DATE OF EXAM: Apr 05 2020 9:17AM CHRIS 0626 - [facility] DIAGNOSTIC RT / PROCEDURE REASON: RIGHT BREAST BIOPSY * * * * Physician Interpretation * * * * FINAL REPORT #[id number] - [facility] DIAGNOSTIC RT #[id number] - [facility] US BIOPSY BREAST RT ULTRASOUND GUIDED BIOPSY [...] dated: 04/04/2020 mammogram and 04/04/2020 ultrasound - [facility]. An ultrasound guided biopsy using real-time [...] dated: 04/04/2020 mammogram and 04/04/2020 ultrasound - [facility]. There are scattered fibroglandular elements in [...] 15:00:42 copy to: GUY ARAYA, ph: [phone] Pipe Tester(s): RT Jason(R)(M), [facility]; Caridad Ramey, [facility] Mammogram BI-RADS: Post-procedure mammogram for marker [...] Health, Family Medicine, and Medical/Surgical Oncology, the [facility] has carefully reviewed the data and [...] their providers when to stop screening mammograms. Emergency Specialist: Charlene Transcribe Date/Time: Apr 05 2020 8:39A Dictated by : GUY ARAYA MD This examination was interpreted and the report reviewed and electronically signed by: GUY ARAYA MD on Apr 05 2020 9:29AM EST This document has been addended by: GUY ARAYA MD on Apr 07 2020 3:00PM EST [id number] Normal [facility] US BIOPSY BREAST RTon [facility] US BIOPSY BREAST RT * * *Final Report* * * * * * SEE BOTTOM OF REPORT FOR ADDENDED TEXT * * * DATE OF EXAM: Apr 05 2020 9:09AM U 0598 - [facility] US BIOPSY BREAST RT / PROCEDURE REASON: R92.8-Abnormal finding on radiological examination of breast * * * * Physician Interpretation * * * * FINAL REPORT #[id number] - [facility] DIAGNOSTIC RT #[id number] - [facility] US BIOPSY BREAST RT ULTRASOUND GUIDED BIOPSY [...] exams dated: 04/04/2020 mammogram and 04/04/2020 [facility]. An ultrasound guided biopsy using [...] exams dated: 04/04/2020 mammogram and 04/04/2020 [facility]. There are scattered fibroglandular elements [...] 15:00:42 copy to: GUY ARAYA, ph: [phone] Pipe Tester(s): Lori Bueno RT(R)(M), [facility]; Caridad Ramey, [facility] Mammogram BI-RADS: Post-procedure mammogram for marker [...] Health, Family Medicine, and Medical/Surgical Oncology, the [facility] has carefully reviewed the data and [...] their providers when to stop screening mammograms. Emergency Specialist: Charlene Transcribe Date/Time: Apr 05 2020 8:39A Dictated by : GUY ARAYA MD This examination was interpreted and the report reviewed and electronically signed by: GUY ARAYA MD on Apr 05 2020 9:29AM EST This document has been addended by: GUY ARAYA MD on Apr 07 2020 3:00PM EST [id number] Normal [facility] SURGICAL PATHOLOGYon 020 SURGICAL PATHOLOGY ADDITIONAL PROCEDURES PRESENT Specimen originated from [facility] Specimen #: [id number] Submitting Physician: GUY ARAYA MD FINAL DIAGNOSIS [...] in-situ hybridization tests have been determined by [facility]'s [facility] Laboratory Medicine [place] ([facility]) in a manner consistent with CLIA requirements. One or more of these tests have not been cleared or approved by the FDA. [facility] is regulated under CLIA as qualified to perform high-complexity testing.These tests are used for clinical purposes. They should not be regarded as investigational or for research. Juan oRck DO (Electronic Signature) SPECIMEN SUBMITTED A: RIGHT [...] Receptor: Food and Drug Administration (FDA) cleared: [employer], [place], [place] Primary Antibody: SP1 Progesterone Receptor: FDA cleared: [employer], [place], [place] Primary Antibody: IE2 HER2 (ERBB2) by IHC: FDA cleared: [employer], [place], [place] Primary Antibody: 4B5 The hormone receptor tests were performed and reported according to Estrogen and Progesterone Receptor Testing in Breast Cancer: [place] Society of Clinical Oncology/College of Dominican PathologistsGuidelineUpdate . Arch Pathol Lab Med.2020May;144(5):545-563. doi: 10.5858/arpa.2839-5867-ZT. [id number] 13. The hormone receptor assays have been internally validated on decalcified tissues. Estrogen and progesterone receptor results are valid if tissue was processed according to ASCO/CAP guidelines. Antibody and Detection System: [employer] anti-HER2 rabbit monoclonal antibody (clone 4B5), [employer] anti-estrogen receptor rabbit monoclonal antibody (clone SP1) and [employer] anti-progesterone receptor rabbit monoclonal antibody (clone IE2) detected with the [employer] iView Detection System (indirect biotin streptavidin detection); [employer], [place], [place]. Control slides: Cell line controls with [...] accordance with the guidelines approved by the [place] Society of Clinical Oncologists and the College of [place] Pathologists. Zafar BERMUDEZ et al. Arch Pathol [...] < 1 minute(s) Gross examination performed at [facility], [address] [place], [place] [address] EJL 04/05/2020 3:18:49 PM Date of Report: 04/07/2020 Date of Procedure: 04/05/2020 Date of Receipt: 04/05/2020 Submitted by: GUY ARAYA MD Location: [facility] Diagnostic interpretation performed at [facility], [facility]0 Jose Calixto, [facility] [address]. CLIA Number: [id number] Normal [facility] DIAGNOSTIC BILon 020 [facility] DIAGNOSTIC TRACEE * * *Final Report* * * DATE OF EXAM: Apr 04 2020 8:29AM W 0620 - [facility] DIAGNOSTIC TRACEE / PROCEDURE REASON: right breast mass * * * * Physician Interpretation * * * * #[id number] - [facility] DIAGNOSTIC TRACEE #[id number] - [facility] US BREAST LTD RT BILATERAL DIGITAL DIAGNOSTIC [...] Health, Family Medicine, and Medical/Surgical Oncology, the [facility] has carefully reviewed the data and [...] their providers when to stop screening mammograms. Pipe Tester(s): Shelley Bravo RT(R)(M), [facility]; Caridad Ramey, [facility] OVERALL STUDY BIRADS: 5 Highly suggestive of malignancy - Appropriate action should be taken Emergency Specialist: Charlene Transcribe Date/Time: Apr 04 2020 8:17A Dictated by : ANDREIA GREENWOOD MD This examination was interpreted and the report reviewed and electronically signed by: ANDREIA GREENWOOD MD on Apr 04 2020 10:19AM EST [id number] Normal [facility] US BREAST LTD RTon 04-04 [facility] US BREAST LTD RT * * *Final Report* * * DATE OF EXAM: Apr 04 2020 9:39AM TONI 0594 - [facility] US BREAST LTD RT / PROCEDURE REASON: breast mass * * * * Physician Interpretation * * * * #[id number] - [facility] DIAGNOSTIC TRACEE #[id number] - DEISY US BREAST LTD RT BILATERAL [...] Health, Family Medicine, and Medical/Surgical Oncology, the [facility] has carefully reviewed the data and [...] their providers when to stop screening mammograms. Pipe Tester(s): RT Yunior(R)(M), [facility]; Caridad Ramey, [facility] OVERALL STUDY BIRADS: 5 Highly suggestive of malignancy - Appropriate action should be taken Emergency Specialist: Charlene Transcribe Date/Time: Apr 04 2020 8:17A Dictated by : ANDREIA GREENWOOD MD This examination was interpreted and the report reviewed and electronically signed by: ANDREIA GREENWOOD MD on Apr 04 2020 10:19AM EST [id number] [facility] PROGRESSon 04-04-2020 PROGRESS HNO ID: [id number] Author: GAVI Mojica (Ct) Service: Radiology Author Type: Clinical Stage Set Up Worker Type: Progress Notes Filed: 04/04/2020 8:29 AM [...] GAVI Mojica April 04, 2020 8:29 AM [facility] PROGRESS HNO ID: [id number] Author: Caridad Kwon) GAVI Ramey Service: Radiology Author Type: Clinical Stage Set Up Worker Type: Progress Notes Filed: 04/04/2020 9:42 AM [...] De León April 04, 2020 9:42 AM [facility] CNTHERAPYon 05-03-2018 CNTHERAPY OT/PT/Speech Visit (PTMDRG) -------BO JACOB ([id number]) 1955 [facility] Time Provider Department05/03/18 8:45 AM ROSSY WILSON (PT) PTMDRGEncounter Number: [id number] Time Provider Department Coulters05/03/2018 8:45 AM [id number] WILSON (P*PTMDRG [facility] for Visit: Physical Therapy [503]Primary [...] slight L beat tendencyLeft John-Halpike Comments: negative allTREATMENT:Self-Senior Care Management:1: vestibular anatomy and mechanism of operation, [...] 3-4 hours.Billing:[place]: Self Care / Home Management (67567): 1:1 time: 10 minutes (1 unit:8-22 mins)Canalith Repositioning (41889) 1 unit (untimed)Total time: 30 minutesAyesha Luo Version ------ Normal [facility] PROGRESSon 05-03-2018 Protein mass conc HNO ID: [id number] thor: Rossy (Pt) ReuschService: (none)Author Type: Physical TherapistType: Progress NotesFiled: 05/03/2018 9:27 AMNote Text:Episode Visit Count: 2Therapist That Will Oversee The Plan Of Care: orssy sebastianhStart of Care Date: 04/24/18Onset Date: 03/25/18Plan [...] retest no sx's, slight L beat tendencyLeft [place]-Halpike Comments: negative allTREATMENT:Self-Senior Care Management:1: vestibular anatomy and mechanism of operation, [...] patient in post repositioning procedures including upright 3-4hours.Billing:[place]: Self Care / Home Management (09228): 1:1 time: 10 minutes (1unit: 8-22 mins)Canalith Repositioning (36694) 1 unit (untimed)Total time: 30 minutesRossy Wilson PT [facility] CNTHERAPYon 04-24-2018 CNTHERAPY OT/PT/Speech Visit (PTMDRG) -------BO JACOB ([id number]) 1955 FDate Time Provider Department04/24/18 1:45 PM ROSSY WILSON (PT) PTMDRGEncounter Number: [id number] Time Provider Department Coulters04/24/2018 1:45 PM [id number] WILSON (P*PTMDRG [facility] CReason for Visit: PT Eval [747] [...] with minor sx's and nystagmus and repeated ENGINEERING PROGRAM ANALYST and issued for home if sx'spersist. She [...] providedEducation Provided To: PatientEducation Mode/Type: Explanation/Discussion;Perf ormanceTREATMENT:Evaluation EvaluationSelf-Senior Care Management:1: eval findings, POC, HEP and parameters, Home ENGINEERING PROGRAM ANALYST-writtent hand outs if sx'spersistSkilled Intervention: Skilled judgment [...] upright 3-4 hours.Billing:[place]: Evaluation - Moderate Complexity (85703)Self Care / Home Management (63077): 1:1 time: 8 minutes (1 unit: 8-22 mins)Canalith Repositioning (02473) 1 unit (untimed)Total time: 45 minutesRossy Wilson PT -Letter TextRehabilitation and Sports [address] [place], [place] [address]Cksodthqzux Line: fax Line: fax Cover LetterDate: 04/25/2018 [...] immediately and then destroythese copies.[facility] [address] [place] [place] [address]Ffwjrmtlrof Line: Fax Line: Date: 04/25/2018 PLAN OF CARE CERTIFICATIONTo: Callie Damon MDFrom: Therapist: GOYO LuoE: Patient Certification/Recertificati on Patient name: Bo Jacob [facility] review of the attached rehabilitation plan of care and ORIGINALsignature are required in order to comply with Payor: [facility] MEDICAID /Plan: [facility] MEDICAID / Product Type: Medicaid / regulations.The [...] with minor sx's and nystagmus and repeated ENGINEERING PROGRAM ANALYST and issuedfor home if sx's persist. She [...] the treatment plan for Bo Jacob, CCF# [id number] for theperiod of 04/25/2018 -- 06/23/18, established on 04/25/2018.Provider signature: ____ Date: Please return only this signature form to:ATTN:[facility] [address] [place] [address]Fvtf: [phone]: [phone] [facility] PROGRESSon 04-24-2018 Protein mass conc HNO ID: [id number] thor: Rossy (Pt) ReuschService: (none)Author Type: Physical [...] still with minor sx's and nystagmus andrepeated ENGINEERING PROGRAM ANALYST and issued for home if sx's persist. [...] educationprovidedEducation Provided To: PatientEducation Mode/Type: Explanation/Discussion;Perf ormanceTREATMENT:Evaluation EvaluationSelf-Senior Care Management:1: eval findings, POC, HEP and parameters, Home ENGINEERING PROGRAM ANALYST-writtent hand outs ifsx's persistSkilled Intervention: Skilled judgment [...] patient in post repositioning procedures including upright 3-4hours.Billing:[place]: Evaluation - Moderate Complexity (86320)Self Care / Home Management (17394): 1:1 time: 8 minutes (1 unit: 8-22mins)Canalith Repositioning (66924) 1 unit (untimed)Total time: 45 minutesAllmyra Wilson, PT Normal [facility] Basic Metabolic Panlon 03-21 Anion gap 3 molar conc 13 mmol/L Normal 9-18 [facility] Comment on above: Performed By: #### C BC, BMP, MG1 ####[facility] [address] [place] [phone] Calcium mass conc 8.6 mg/dL Normal 8.5-10.2 [facility] Comment on above: Performed By: #### C BC, BMP, MG1 ####[facility] [address] [place] [phone] Chloride molar conc 106 mmol/L High 97-105 [facility] Comment on above: Performed By: #### C BC, BMP, MG1 ####[facility] [address] [place] [phone] CO2 molar conc 24 mmol/L Normal 22-30 [facility] Comment on above: Performed By: #### C ROSAURA CHOPRA, MG1 ####[facility] [address] [place] [address] Creatinine mass conc 0.86 mg/dL Normal 0.58-0.96 [facility] Comment on above: Performed By: #### C KEYSHA, BMP, MG1 ####[facility] [address] [place] [address] eGFR- Amer. >60 Normal [facility] Comment on above: Performed By: #### C KEYSHA, BMP, MG1 ####[facility] [address] [place] [address] GFR/1.73 sq M predicted among non-blacks MDRD vol rate/area (S/P/Bld) mL/min/{1.73_m2} Normal [facility] Comment on above: Result Comment: [...] Performed By: #### C ROSAURA CHOPRA, MG1 ####[facility] [address] [place] [address] Glucose mass conc 94 mg/dL Normal 74-99 [facility] Comment on above: Result Comment: The [place] Diabetes Association (ADA) provides guidance for cutoff [...] Standards of Medical Care in Diabetes 2016, [place] Diabetes Association. Diabetes Care. 2016.39(Suppl 1). Performed By: #### C ROSAURA CHOPRA MG1 ####[facility] [address] [place] [address] Potassium molar conc 3.9 mmol/L Normal 3.7-5.1 [facility] Comment on above: Performed By: #### C ROSAURA CHOPRA, MG1 ####[facility] [address] [place] [address] Sodium molar conc 143 mmol/L Normal 136-144 [facility] Comment on above: Performed By: #### C ROSAURA CHOPRA, MG1 ####[facility] [address] [place] [address] Urea nitrogen mass conc 15 mg/dL Normal 7-21 [facility] Comment on above: Performed By: #### ROSAURA OLMEDO MG1 ####[facility] [address] [place] [address] CASE MANAGEMon 03-21-2018 CASE MANAGEM HNO ID: [id number] thor: Elisa Varela (Sw)Serkwabenae: Care ManagementAuthor Type: Social WorkerType: Care Mgt Progress NoteFiled: 03/21/2018 10:15 AMNote Text:CARE MANAGEMENT PROGRESS NOTESERVICE DATE: 03/21/2018SERVICE TIME: 10:10 AM LOS: 0 daysPt remains with no skilled needs. PCP tasked. Family to transport. tofollow and support.SIGNATURE: HSAWN Workman PATIENT NAME: Bo JacobDATE: March 21, 2018 : 10:10 AM PAGER/CONTACT #: [phone] Normal [facility] CBCon 03-21-2018 Erythrocyte distribution width Auto Ratio (RBC) 13.5 % Normal 11.5-15.0 [facility] Comment on above: Performed By: #### C ROSAURA CHOPRA, MG1 ####[facility] [address] [place] [address] Hematocrit Auto Volume Fraction (Bld) 45.1 % Normal 36.0-46.0 [facility] Comment on above: Performed By: #### C ROSAURA CHOPRA, MG1 ####[facility] [address] [place] [address] Hemoglobin mass conc (Bld) 14.8 g/dL Normal 11.5-15.5 [facility] Comment on above: Performed By: #### C ROSAURA CHOPRA, MG1 ####[facility] [address] [place] [address] MCH Auto Entitic mass (RBC) 30.3 pG Normal 26.0-34.0 [facility] Comment on above: Performed By: #### C ROSAURA CHOPRA, MG1 ####[facility] [address] [place] [address] MCHC Auto mass conc (RBC) 32.8 g/dL Normal 30.5-36.0 [facility] Comment on above: Performed By: #### ROSAURA OLMEDO, MG1 ####[facility] [address] [place] [address] MCV Auto Entitic volume (RBC) 92.4 fL Normal 80.0-100.0 [facility] Comment on above: Performed By: #### C ROSAURA CHOPRA, MG1 ####[facility] [address] [place] [address] Platelet mean volume Auto Entitic volume (Bld) 9.9 fL Normal 9.0-12.7 [facility] Comment on above: Performed By: #### ROSAURA OLMEDO, MG1 ####[facility] [address] [place] [address] Platelets Auto #/vol (Bld) 238 10*3/uL Normal 150-400 [facility] Comment on above: Performed By: #### C ROSAURA CHOPRA, MG1 ####[facility] [address] [place] [address] RBC Auto #/vol (Bld) 4.88 10*6/uL Normal 3.90-5.20 [facility] Comment on above: Performed By: #### ROSAURA OLMEDO, MG1 ####[facility] [address] [place] [address] WBC Auto #/vol (Bld) 6.68 10*3/uL Normal 3.70-11.00 [facility] Comment on above: Performed By: #### C KEYSHA BMP, MG1 ####[facility] [address] [place] [phone] CNCOon 03-21-2018 CNCO Letter Lesa 2017Bo Jacob[address] [address] [facility] [address]Xzos Ms. Jacob,The nurses and staff of [facility] hope this letter finds you feelingwell [...] hospital stay, pleasefeel free to contact me, Jnena Plaza RN ([phone]) or email me at,[email or web address] lly, you will receive a survey in the mail asking you to rate thecare you received while in the hospital. Please take the time to complete andsend back the survey, as it is essential to our continued success. Ipersonally review all the results and would appreciate your feedback.Thank you in advance for your participation and thank [facility].Sincerely,Nurse Cushion Former: Jenna Plaza RN ([phone])[facility] Unit: [address] [place] [address] 03-21-2018 CN HNO ID: [id number] thor: Callie Jarvise: [facility] MedicineAuthor Type: PhysicianType: Discharge SummariesFiled: 03/21/2018 12:56 PMNote Text:DISCHARGE SUMMARYPATIENT NAME: Bo Jacob ADMISSION DATE: 03/19/2018MRN: [id number] DISCHARGE DATE: 03/21/2018ATTENDING PHYSICIAN: Callie Byers FOR HOSPITALIZATION: dizzinessDIAGNOSIS: Active Problems: Dizziness Hypertensive urgency Hematuria, undiagnosed causeResolved Problems: * No resolved hospital problems. *OPERATIONS DURING HOSPITALIZATION: NonePROCEDURES DURING HOSPITALIZATION: No procedures performedHOSPITAL COURSE:Active Problems: Dizziness Overview: -ct head and MRI brain were negative. -pt complaining of episodic vertigo. -Hilo halpike maneuver performed at bedside was positive. [...] ED to Hosp-Admission (Current) from 03/19/2018 in [facility] Medical Follow-Up Appointment Specialty PCP Provider Name Loan Dias NP Address [address], [facility] [address] Additonal Instructions Patient should bring the following [...] 21, 2018 : 12:35 PM PAGER/CONTACT #: [phone] [facility] Magnesiumon 03-21-2018 Magnesium mass conc 2.1 mg/dL Normal 1.7-2.3 [facility] Comment on above: Performed By: #### C BC, BMP, MG1 ####[facility] [address] [place] [phone] NURSING PROGon 03-21-2018 Protein mass conc HNO ID: [id number] thor: Sony (Rn) Kaushik, RNService: (none)Author Type: Registered NurseType: Nursing Progress NoteFiled: 03/21/2018 6:47 AMNote Text: Nursing Progress NotePatient Name: Bo JacobMRN: [id number] Location: [place] [address]/[id number]____ Daily Note:1900: Patient is resting in bed talking with family.2100: Pt is resting in bed with family, sinus on tele.2300: pt observed asleep.0100: Pt observed asleep.0300: Pt observed asleep.0500: Pt observed sleeping, sinus on tele.This note was completed by: Sony Faulkner, RN [facility] THERAPY NTon 03-21-2018 THERAPY NT HNO ID: [id number] thor: Ruby (Pt) NaplesService: Physical TherapyAuthor Type: Physical TherapistType: Therapy (PT/OT/Speech/Resp)Filed: 03/21/2018 10:32 AMNote Text:Physical Therapy EvaluationSERVICE DATE: 03/21/2018SERVICE TIME: 0855 to 0952ROOM: [id number] Discharge Disposition: Outpatient Physical TherapyRecommended Discharge Disposition [...] balance/safety with elevated fall risk. Patient + Hilo HallpikeL and responds well with Coral maneuver [...] INTERVENTIONS:Therapy Diagnosis: Reduced mobility-otherInterventions Provided: Evaluation;Therapeutic Activity (93146);CanalithRepositioni ng (83638)$ Evaluation-Low (09424) Billed Units: 1 unitTherapeutic Activity (87373) Treatment Minutes: 232 unitsSkilled Intervention(s): Instructed patient [...] POC and anticipated OP progression andrationaleCanalith Repositioning (51749)$ Canalith Repositioning (22608) Billed Units: 1 unitSkilled Intervention(s): Professional judgment [...] JacobDATE: March 21, 2018 : 10:20 AM [facility] Urinalysison 03-21-2018 Bilirubin, Urine Negative Normal Negative [facility] Comment on above: Performed By: #### U A, UAMIC ####[facility] [address] [place] [address] Clarity Clear Normal Clear [facility] Comment on above: Performed By: #### U A, UAMIC ####[facility] [address] [place] [address] Color Yellow Normal Yellow [facility] Comment on above: Performed By: #### U A, UAMIC ####[facility] [address] [place] [address] Glucose Ql (U) Negative Normal Negative [facility] Comment on above: Performed By: #### U A, UAMIC ####[facility] [address] [place] [address] Hemoglobin/Blood,Ur Trace Critically abnormal Negative [facility] Comment on above: Performed By: #### U A, UAMIC ####[facility] [address] [place] [address] Ketones Ql (U) Negative Normal Negative [facility] Comment on above: Performed By: #### U A, UAMIC ####[facility] [address] [place] [address] Leukest Small Critically abnormal Negative [facility] Comment on above: Performed By: #### U A, UAMIC ####[facility] [address] [place] [address] Nitrites Negative Normal Negative [facility] Comment on above: Performed By: #### U A, UAMIC ####[facility] [address] [place] [address] pH 7.0 Normal 5.0-8.0 [facility] Comment on above: Performed By: #### U A, UAMIC ####[facility] [address] [place] [address] Protein, Urine Negative Normal [facility] Comment on above: Performed By: #### U A, UAMIC ####[facility] [address] [place] [address] Specific [place], Ur <=1.005 Normal 1.001-1.029 [facility] Comment on above: Performed By: #### U A, UAMIC ####[facility] [address] [place] [address] Urobilinogen 0.2 Normal 0.2-1.0 [facility] Comment on above: Performed By: #### U A, UAMIC ####[facility] Rlzt[address] [place] [address] Urine Microscopic (FOR LAB U SE ONLY)on 03-21-2018 Bacteria Few Critically abnormal 0 [facility] Comment on above: Performed By: #### U A, UAMIC ####[facility] [address]uz[address] [place] [address] Cast SEE COMMENT Normal 0 [facility] Comment on above: Result Comment: 0 Performed By: #### U A, UAMIC ####[facility] [address] [place] [address] Epithelial Cells SEE COMMENT Normal [facility] Comment on above: Result Comment: 0-5S quamous Epithelial Cells Performed By: #### U A, UAMIC ####[facility] [address] [place] [address] INR Coag RelTime (Bld) 3-5 Criticall y abnormal 0-3 [facility] Comment on above: Performed By: #### U A, UAMIC ####[facility] [address] [place] [address] WBC 5-10 Critically abnormal 0-5 [facility] Comment on above: Performed By: #### U A, UAMIC ####[facility] [address] [place] [address] Basic Metabolic Panlon 03-20 Anion gap 3 molar conc 12 mmol/L Normal 9-18 [facility] Comment on above: Performed By: #### C BC, BMP, MG1 ####[facility] Ygmoas[address] [place] [address] Calcium mass conc 9.0 mg/dL Normal 8.5-10.2 [facility] Comment on above: Performed By: #### C BC, BMP, MG1 ####[facility] [address] [place] [address] Chloride molar conc 106 mmol/L High 97-105 [facility] Comment on above: Performed By: #### C BC, BMP, MG1 ####[facility] [address]ed6[address] [place] [address] CO2 molar conc 26 mmol/L Normal 22-30 [facility] Comment on above: Performed By: #### C ROSAURA CHOPRA, MG1 ####[facility] [address] [place] [address] Creatinine mass conc 0.87 mg/dL Normal 0.58-0.96 [facility] Comment on above: Performed By: #### C ROSAURA CHOPRA, MG1 ####[facility] [address]uvv[address]if[address] [place] [address] eGFR- Amer. >60 Normal [facility] Comment on above: Performed By: #### C ROSAURA CHOPRA, MG1 ####[facility] T[address]bli[address] [place] [address] GFR/1.73 sq M predicted among non-blacks MDRD vol rate/area (S/P/Bld) mL/min/{1.73_m2} Normal [facility] Comment on above: Result Comment: [...] Performed By: #### C ROSAURA CHOPRA, MG1 ####[facility] [address] [place] [address] Glucose mass conc 84 mg/dL Normal 74-99 [facility] Comment on above: Result Comment: The [place] Diabetes Association (ADA) provides guidance for cutoff [...] Standards of Medical Care in Diabetes 2016, [place] Diabetes Association. Diabetes Care. 2016.39(Suppl 1). Performed By: #### C ROSAURA CHOPRA MG1 ####[facility] [address] [place] [address] Potassium molar conc 3.9 mmol/L Normal 3.7-5.1 [facility] Comment on above: Performed By: #### C ROSAURA CHOPRA MG1 ####[place] [address] Sodium molar conc 144 mmol/L Normal 136-144 [facility] Comment on above: Performed By: #### C ROSAURA CHOPRA MG1 ####[place] [address] Urea nitrogen mass conc 12 mg/dL Normal 7-21 [facility] Comment on above: Performed By: #### C ROSAURA CHOPRA MG1 ####[place] [address] CBCon 03-20-2018 Erythrocyte distribution width Auto Ratio (RBC) 13.5 % Normal 11.5-15.0 [facility] Comment on above: Performed By: #### C ROSAURA CHOPRA MG1 ####[place] [address] Hematocrit Auto Volume Fraction (Bld) 44.6 % Normal 36.0-46.0 [facility] Comment on above: Performed By: #### C ROSAURA CHOPRA, MG1 ####[place] [address] Hemoglobin mass conc (Bld) 14.8 g/dL Normal 11.5-15.5 [facility] Comment on above: Performed By: #### C ROSAURA CHOPRA, MG1 ####[place] [address] MCH Auto Entitic mass (RBC) 30.9 pG Normal 26.0-34.0 [facility] Comment on above: Performed By: #### C ROSAURA CHOPRA, MG1 ####[place] [address] MCHC Auto mass conc (RBC) 33.2 g/dL Normal 30.5-36.0 [facility] Comment on above: Performed By: #### ROSAURA OLMEDO, MG1 ####[facility] [address]fll[address] [place] [address] MCV Auto Entitic volume (RBC) 93.1 fL Normal 80.0-100.0 [facility] Comment on above: Performed By: #### ROSAURA OLMEDO, MG1 ####[facility] [address] [place] [address] Platelet mean volume Auto Entitic volume (Bld) 10.1 fL Normal 9.0-12.7 [facility] Comment on above: Performed By: #### ROSAURA OLMEDO, MG1 ####[facility] [address] [place] [address] Platelets Auto #/vol (Bld) 220 10*3/uL Normal 150-400 [facility] Comment on above: Performed By: #### ROSAURA OLMEDO, MG1 ####[facility] [address] [place] [address] RBC Auto #/vol (Bld) 4.79 10*6/uL Normal 3.90-5.20 [facility] Comment on above: Performed By: #### ROSAURA OLMEDO, MG1 ####[facility] [address]38[address] [place] [address] WBC Auto #/vol (Bld) 5.66 10*3/uL Normal 3.70-11.00 [facility] Comment on above: Performed By: #### ROSAURA OLMEDO, MG1 ####[facility] [address] [place] [address] CONSULTon 03-20-2018 CONSULT HNO ID: [id number] thor: [place]: NeurologyAuthor Type: PhysicianType: [...] which is high for her. Presented to [facility], treated as vertigo, prescribed Ativert and Valium and sent home whichdid not help her symptoms, made her feel drowsy. Followed up with PCP whoperformed orthostatics that increased going from laying to standing. HadEKG. Send to [place]. Strong family history of stroke so [...] 1.00 - 4.00 k/uL 2.12Mono% % 7.7Abs [place] <0.87 k/uL 0.65Eosin% % 3.7Abs Eosin <0.46 [...] NegativeBilirubin, Urine Negative NegativeKetones, Urine Negative NegativeSpecific [place], Ur 1.001 - 1.029 1.010Hemoglobin/Blood,Ur Negative NegativepH, [...] wine: 7 per week Drug use: NoREVIEW [facility] (In addition to HPI):GEN: No fever/chills.HEENT: [...] the side of the bed triggered nystagmus. Hilo Hallpikereproduced symptoms but I did not appreciate [...] vestibular PT. No additionalneurological work-up needed.Rio Barr M.D.[facility] Neurological InstituteDepartment of NeurologyCenter for Regional NeurologyPager: [phone] 2017 Normal [facility] Lipid Panel, [place] 018 Cholesterol in HDL mass conc 49 mg/dL Normal >39 [facility] Comment on above: Result Comment: 40-5 9 mg/dL, Acceptable>59 mg/dL, High: Negative risk factor for coronary heart disease<40 mg/dL, Low: Positive risk factor for coronary heart disease Performed By: #### L IPB ####[address] [phone] Cholesterol in LDL mass conc 85 mg/dL Normal <100 [facility] Comment on above: Result Comment: <100 mg/dL, Optimal 100-129 mg/dL, Near optimal/above optimal 130-159 mg/dL, Borderline high 160-189 mg/dL, High>189 mg/dL, Very highSecondary prevention optimal LDL Cholesterol levels are recommended to be < 70 mg/dL Performed By: #### L IPB ####[facility] [place], [place] [phone] Cholesterol mass conc 148 mg/dL Normal <200 [facility] Comment on above: Result Comment: <200 mg/dL, Desirable 200-239 mg/dL, Borderline high>239 mg/dL, High Performed By: #### L IPB ####[facility] [address] [place], [place] [phone] Fasting Time Unknown Normal [facility] Comment on above: Performed By: #### L IPB ####[address] [phone] LDL:HDL Ratio 1.73 Normal <2.54 [facility] Comment on above: Result Comment: Refe rence:1. National Cholesterol Education Program ATP III Guideline At-A-Glance Quick Desk Reference: National Heart, Lung, and Blood [place]. National Institutes of Health. 2001: NIH Publication No. 01-3305.2. An International Atherosclerosis Society position paper: global recommendations for the management of dyslipidemia: executive summary, Atherosclerosis. 2014: 232(2):410-413. Performed By: #### L IPB ####[address] [phone] Non HDL Cholesterol 99 mg/dL Normal <130 [facility] Comment on above: Result Comment: <130 mg/dL, Optimal 130-159 mg/dL, Near optimal/above optimal 160-189 mg/dL, Borderline high 190-219 mg/dL, High>219 mg/dL, Very highSecondary prevention optimal non HDL Cholesterol levels are recommended to be < 100 mg/dL Performed By: #### L IPB ####[address] [phone] TC:HDL Ratio 3.02 Normal <5.10 [facility] Comment on above: Performed By: #### L IPB ####[address] [phone] Triglyceride mass conc 72 mg/dL Normal <150 [facility] Comment on above: Result Comment: <150 mg/dL, Normal 150-199 mg/dL, Borderline high 200-499 mg/dL, High>499 mg/dL, Very high Performed By: #### L IPB ####[address] [phone] VLDL Cholesterol 14 mg/dL Normal <30 [facility] Comment on above: Performed By: #### L IPB ####[address] [phone] MRI BRAIN WO IVCONon 018 MRI BRAIN WO IVCON * * *Final Report* * *DATE OF EXAM: Mar 20 2018 11:31AM [facility] 0294 - MRI BRAIN WO IVCON / [...] JAMIL MD on Mar 20 2018 11:53AM [id number] Normal [facility] Magnesiumon 03-20-2018 Magnesium mass conc 2.2 mg/dL Normal 1.7-2.3 [facility] Comment on above: Performed By: #### C BC, BMP, MG1 ####[facility] [address] [place] [phone] NURSING PROGon 03-20-2018 Protein mass conc HNO ID: [id number] thor: Elza (Rn) THERESA Romeroervice: (none)Author Type: Registered NurseType: Nursing Progress NoteFiled: 03/20/2018 10:30 AMNote Text: Nursing Progress NotePatient Name: Bo JacobMRN: [id number] [id number]____ Daily Note:0735 RN assumed care of patient, patient resting in bed, assessmentcomplete, see NPR. Heart sounds regular, bowel sounds present, lung soundsclear, HR 83 SR on tele. IV patent, c/o dizziness, and a headache, lightsdimmed and repositioned.0856 Patient c/o headache and dizziness, medications given per OCT. HR 79SR on tele.1025 Report called to 2 Kell RN. Patient transferred in stable condition.This note was completed by: Elza Romero RN [facility] Protein mass conc HNO ID: [id number] thor: Ruth (Rn) Alise, RNService: (none)Author Type: Registered NurseType: Nursing Progress NoteFiled: 03/20/2018 5:10 AMNote Text: Nursing Progress NotePatient Name: Bo JacobMRN: [id number] Location: [place] [address]____ Daily Note:2000 Pt arrive on unit. Family present with pt. No sign of acute distress.2130 Pt sitting up in bed. SR on tele. No sign of distress. Family hasmultiple family members [id number] Pt laying in bed. No sign of distress. Pt asking when VS will betaken. Explained hospital policies on observation pt's, VS, and plan ofcare. Pt verbalizes understanding.0100 Pt laying in bed on back, sleeping. No sign of acute distress. SR [id number] Pt laying in bed, sleeping. No sign of acute distress. SR on [id number] Pt laying in bed, sleeping. SR on teleThis note was completed by: Ruth Carrero RN [facility] PROGRESSon 03-20-2018 Protein mass conc HNO ID: [id number] thor: Callie Jarvise: Hospital MedicineAuthor Type: PhysicianType: Progress NotesFiled: 03/20/2018 2:23 PMNote Text:HOSPITAL MEDICINEPROGRESS NOTEName: Bo JacobMRN: [id number] DATE: 03/20/2018SERVICE TIME: 2:20 PMLOCATION / ROOM: [place] [address]/[address] Medicine/Primary Attending: Callie Damon MDNIGHT COVERAGE BETWEEN 5.30P-7.30APage 39302JQPTRAVGHM AND PLANActive Hospital Problems Diagnosis- Dizziness -ct head and MRI brain were negative.-pt complaining of episodic vertigo.-Hilo halpike maneuver performed at bedside was positive.-Will get physical therapy to see the patient for teaching the [facility] hospitalmaneuver and further evaluation.-appreciate neurology .-meclizine not [...] chewable tab(s) 81 mg ORAL DAILY [facility] ([facility]) Pena 81 mgat 03/20/18 92854.9% NaCl 3-5 mL 3-5 mL INTRAVENOUS q 12 H [facility] ([facility]) Pena 3 mL at03/20/18 0930ondansetron orally disintegrating 4 mg tab(s) (ZOFRAN ODT) 4 mg ORAL q 6 HPRN [facility] ([facility]) ReevesOrondansetron (PF) 4 mg injection (ZOFRAN) 4 mg INTRAVENOUS q 6 H PRNDestinee ([employer]) Reevesacetaminophen 650 mg tab(s) (TYLENOL) 650 mg ORAL q 6 H PRN Breanna ([facility])Pena 650 mg at 03/20/18 0932OBJECTIVEPHYSICAL EXAM: BP [...] MDDATE: March 20, 2018TIME: 2:20 PM Normal [facility] Urinalysison 03-20-2018 Bilirubin, Urine Negative Normal Negative [facility] Comment on above: Performed By: #### U A UAVIVIANA ####[facility] [address] [place], [place] [phone] Clarity Clear Normal Clear [facility] Comment on above: Performed By: #### U A, UAMIC ####[facility] [address] [place] [address] Color Straw Critically abnormal Yellow [facility] Comment on above: Performed By: #### U A, UAMIC ####[facility] [address]rs[address] [place] [address] Glucose Ql (U) Negative Normal Negative [facility] Comment on above: Performed By: #### U A, UAMIC ####[facility] [address] [place] [address] Hemoglobin/Blood,Ur Negative Normal Negative [facility] Comment on above: Performed By: #### U A, UAMIC ####[facility] [address] [place] [address] Ketones Ql (U) Negative Normal Negative [facility] Comment on above: Performed By: #### U A, UAMIC ####[facility] [address] [place] [address] Leukest Trace Critically abnormal Negative [facility] Comment on above: Performed By: #### U A, UAMIC ####[facility] [address] [place] [address] Nitrites Negative Normal Negative [facility] Comment on above: Performed By: #### U A, UAMIC ####[facility] [address] [place] [address] pH 7.0 Normal 5.0-8.0 [facility] Comment on above: Performed By: #### U A, UAMIC ####[facility] [address] [place] [address] Protein, Urine Negative Normal [facility] Comment on above: Performed By: #### U A, UAMIC ####[facility] [address]iswvbvjz[address] [place] [address] Specific [place], Ur 1.010 Normal 1.001-1.029 [facility] Comment on above: Performed By: #### U A, UAMIC ####[facility] [address] [place] [address] Urobilinogen 0.2 Normal 0.2-1.0 [facility] Comment on above: Performed By: #### U A, UAMIC ####[facility] Shelzykjcv3667 [address] Urine Microscopic (FOR LAB U SE ONLY)on 03-20-2018 Cast SEE COMMENT Normal 0 [facility] Comment on above: Result Comment: 0 Performed By: #### U A, UAMIC ####[facility] Zmrdhbtuxr9153 [address] Epithelial Cells SEE COMMENT Normal [facility] Comment on above: Result Comment: 0-5S quamous Epithelial Cells Performed By: #### U A, UAMIC ####[facility] Hhtefdjimc0645 [address] INR Coag RelTime (Bld) 0-3 Normal 0-3 [facility] Comment on above: Performed By: #### U A, UAMIC ####[facility] [address] [place] [address] WBC 0-5 Normal 0-5 [facility] Comment on above: Performed By: #### U A, UAMIC ####[facility] Uaguuvxnqq7235 [address] CASE MGT INIT ASSESon 2017 CASE MGT INIT ASSBETTY HNO ID: [id number] thor: Barbara (Rn) THERESA Arroyoervice: (none)Author Type: Registered NurseType: Care Mgt Initial AssessmentFiled: 03/19/2018 7:03 PMNote Text:CARE MANAGEMENT: ASSESSMENT AND DISCHARGE PLANSERVICE DATE: 03/19/2018SERVICE TIME: 6:56 PMRN Maintenance Mechanic Supervisor met with patient at bedside in the emergency department.Introduction made and role of case management explained.Patient states she is agreeable to assessment questions.Assessment information provided by electronic medical record and patient.PRIMARY CARE PHYSICIAN: Loan Dias NP confirmedPhone: Wifcvjt states she does not have any appointment [...] Directive:Current Advance Directive: Health Care Power of Fire Control Technician G;Vitor Gomes Chart: NoHCPOA: Spouse Derrek Jacob [phone] Literacy:1. How often do you need to [...] Admission: NoneHas the Patient Been in a [facility] in the Past 30 days? NoSOCIAL:Living Arrangement: HomeLives With: SpouseFinancial Resources: N/APrimary Contact:Derrek JacobPhone: Fgblmzlu: SpouseTravis HensleyPhone: Aznyzmjd: DaughterSupportive: YesOther Important Patient Contacts: NoneCaregiver Assessment:Caregiver [...] topatient states she does not take any telecommunicator prescription medication.Are you interested in bedside delivery of your medications? NoPharmacy Preference: [facility] in [facility] Concerns:In the Last Month, Have You had [...] planningneeds.Primary Care Physician: Loan Dias NP - [facility] Summary of Care to edie at discharge.SIGNATURE: Barbara Arryoo RN PATIENT NAME: Bo JacobDATE: March 19, 2018 : 6:56 PM PAGER/CONTACT #: [phone] Normal [facility] CBC and Differentialon 03-19 Abs Baso 0.09 k/uL Normal <0.11 [facility] Comment on above: Performed By: #### C BCDIF, CMP, MG1 ####[facility] [address] [place] [address] Abs [place] 0.65 k/uL Normal <0.87 [facility] Comment on above: Performed By: #### C BCDIF, CMP, MG1 ####[facility] [address] [place] [address] Abs Neut 5.24 k/uL Normal 1.45-7.50 [facility] Comment on above: Performed By: #### C BCDIF, CMP, MG1 ####[facility] [address]uyfvdfnbz0174 [address] Basophils/100 WBC Auto (Bld) 1.1 % Normal [facility] Comment on above: Performed By: #### C BCDIF, CMP, MG1 ####[facility] [address] [place] [address] Eosinophils Auto #/vol (Bld) 0.31 10*3/uL Normal <0.46 [facility] Comment on above: Performed By: #### C BCDIF, CMP, MG1 ####[facility] [address] [place] [address] Eosinophils/100 WBC Auto (Bld) 3.7 % Normal [facility] Comment on above: Performed By: #### C BCDIF, CMP, MG1 ####[facility] [address] [place] [address] Erythrocyte distribution width Auto Ratio (RBC) 13.5 % Normal 11.5-15.0 [facility] Comment on above: Performed By: #### C BCDIF, CMP, MG1 ####[facility] [address] [place] [address] Hematocrit Auto Volume Fraction (Bld) 46.4 % High 36.0-46.0 [facility] Comment on above: Performed By: #### C BCKHADAR CMP, MG1 ####[facility] [address] [place] [address] Hemoglobin mass conc (Bld) 15.4 g/dL Normal 11.5-15.5 [facility] Comment on above: Performed By: #### C BCKHADAR CMP, MG1 ####[facility] [address] [place] [address] Lymphocytes Auto #/vol (Bld) 2.12 10*3/uL Normal 1.00-4.00 [facility] Comment on above: Performed By: #### C BCKHADAR CMP, MG1 ####[place] [address] Lymphocytes/100 WBC Auto (Bld) 25.2 % Normal [facility] Comment on above: Performed By: #### C BCDIF CMP, MG1 ####[facility] [address] [place] [address] MCH Auto Entitic mass (RBC) 30.6 pG Normal 26.0-34.0 [facility] Comment on above: Performed By: #### C BCJIMMYF CMP, MG1 ####[place] [address] MCHC Auto mass conc (RBC) 33.2 g/dL Normal 30.5-36.0 [facility] Comment on above: Performed By: #### C BCDIF CMP, MG1 ####[facility] [address] [place] [address] MCV Auto Entitic volume (RBC) 92.2 fL Normal 80.0-100.0 [facility] Comment on above: Performed By: #### C BCDIF, CMP, MG1 ####[facility] Sm[address] [place], [place] [id number] Monocytes/100 WBC Auto (Bld) 7.7 % Normal [facility] Comment on above: Performed By: #### C BCDIF CMP, MG1 ####[facility] [address] [place] [address] Neutrophils/100 WBC Auto (Bld) 62.3 % Normal [facility] Comment on above: Performed By: #### C BCDIF, CMP, MG1 ####[facility] [address] [place] [address] Platelet mean volume Auto Entitic volume (Bld) 10.0 fL Normal 9.0-12.7 [facility] Comment on above: Performed By: #### C BCDIF, CMP, MG1 ####[facility] [address] [place] [address] Platelets Auto #/vol (Bld) 255 10*3/uL Normal 150-400 [facility] Comment on above: Performed By: #### C BCDIF, CMP, MG1 ####[place] [address] RBC Auto #/vol (Bld) 5.03 10*6/uL Normal 3.90-5.20 [facility] Comment on above: Performed By: #### C BCDIF, CMP, MG1 ####[facility] [facility] [address] [place] [address] WBC Auto #/vol (Bld) 8.41 10*3/uL Normal 3.70-11.00 [facility] Comment on above: Performed By: #### C BCDIF, CMP, MG1 ####[facility] [address] [place] [address] CK, Total and CKMBon 018 CK enzyme act/vol 64 U/L Normal 42-196 [facility] Comment on above: Performed By: #### C KCANNIKA ####[facility] [address] [place] [address] CK MB % CK MB % not reported with CK <100 U/L. Normal 0.0-4.0 [facility] Comment on above: Performed By: #### C KCLENNYB ####[place] [address] MB 1.8 ng/mL Normal <4.3 [facility] Comment on above: Performed By: #### C KCLENNYB ####[facility] [address] [place] [address] Comp Metabolic Panelon 03-19 Albumin mass conc 4.6 g/dL Normal 3.9-4.9 [facility] Comment on above: Performed By: #### C BCDIF, CMP, MG1 ####[place] [address] ALP enzyme act/vol 91 U/L Normal 32-117 [facility] Comment on above: Performed By: #### C BCDIF, CMP, MG1 ####[facility] [address] [place] [address] ALT enzyme act/vol 41 U/L High 7-38 [facility] Comment on above: Performed By: #### C BCDIF, CMP, MG1 ####[place] [address] Anion gap 3 molar conc 12 mmol/L Normal 9-18 [facility] Comment on above: Performed By: #### C BCDIF, CMP, MG1 ####[place] [address] AST enzyme act/vol 36 U/L High 13-35 [facility] Comment on above: Performed By: #### C BCDIF, CMP, MG1 ####[place] [address] Bilirubin mass conc 0.4 mg/dL Normal 0.2-1.3 [facility] Comment on above: Performed By: #### C BCDIF, CMP, MG1 ####[place] [address] Calcium mass conc 9.6 mg/dL Normal 8.5-10.2 [facility] Comment on above: Performed By: #### C BCDIF, CMP, MG1 ####[place] [address] Chloride molar conc 104 mmol/L Normal 97-105 [facility] Comment on above: Performed By: #### C BCDIF, CMP, MG1 ####[facility] [address] [place] [address] CO2 molar conc 26 mmol/L Normal 22-30 [facility] Comment on above: Performed By: #### C BCDIF, CMP, MG1 ####[facility] [address] [place] [phone] Creatinine mass conc 0.88 mg/dL Normal 0.58-0.96 [facility] Comment on above: Performed By: #### C BCDIF, CMP, MG1 ####[facility] [address] [place] [phone] eGFR- Amer. >60 Normal [facility] Comment on above: Performed By: #### C BCDIF, CMP, MG1 ####[facility] [address] [place] [phone] GFR/1.73 sq M predicted among non-blacks MDRD vol rate/area (S/P/Bld) mL/min/{1.73_m2} Normal [facility] Comment on above: Result Comment: [...] Performed By: #### C BCDIF, CMP, MG1 ####[facility] [address] Glucose mass conc 96 mg/dL Normal 74-99 [facility] Comment on above: Result Comment: The [place] Diabetes Association (ADA) provides guidance for cutoff [...] Standards of Medical Care in Diabetes 2016, [place] [employer]. Diabetes Care. 2016.39(Suppl 1). Performed By: #### C BCDIF, CMP, MG1 ####[facility] [address] [place] [address] Potassium molar conc 3.8 mmol/L Normal 3.7-5.1 [facility] Comment on above: Performed By: #### C BCDIF, CMP, MG1 ####[facility] [address] [place] [address] Protein mass conc 7.3 g/dL Normal 6.3-8.0 [facility] Comment on above: Performed By: #### C BCDIF, CMP, MG1 ####[facility] [address] [place] [address] Sodium molar conc 142 mmol/L Normal 136-144 [facility] Comment on above: Performed By: #### C BCDIF, CMP, MG1 ####[facility] [address] [place] [address] Urea nitrogen mass conc 13 mg/dL Normal 7-21 [facility] Comment on above: Performed By: #### C BCDIF, CMP, MG1 ####[facility] [address] [place] [address] ED NOTEon 03-19-2018 ED NOTE HNO ID: [id number] Author: Annie HendricksonRn) BERNABE Mcmanus Service: (none) Author Type: Registered Nurse Type: ED Notes Filed: 03/19/2018 7:19 PM Note Text: pt updated on plan of care [facility] ED NOTE HNO ID: [id number] Author: Alondra (Rn) Anais, BERNABE Service: (none) Author Type: Registered Nurse Type: ED Notes Filed: 03/19/2018 6:27 PM Note Text: Ambulated to bathroom with assistance, continues to feel dizzy. [facility] ED NOTE HNO ID: [id number] Author: Alondra HendricksonRn) Anais, RN Service: (none) Author Type: Registered Nurse Type: ED Notes Filed: 03/19/2018 5:00 PM Note Text: XR at bedside [facility] ED NOTE HNO ID: [id number] thor: Alondra (Rn) Esme Manzoice: (none)Author Type: Registered NurseType: ED NotesFiled: 03/19/2018 4:59 PMNote Text: Pt to ED c/o dizziness that started past Saturday. Reports that she wasseen by [facility] on Saturday and diagnosed with vertigo, [...] has intermittentdouble vision, none at this time. [facility] ED NOTE HNO ID: [id number] thor: Basim (Rn) Esme Gonzalesice: (none)Author Type: Registered NurseType: ED NotesFiled: 03/19/2018 4:37 PMNote Text:Bed: ED-11Expected date:Expected time:Means of arrival:Comments:Cecil - sent by Loan Dias Dizzy [facility] ED NOTE HNO ID: [id number] Author: Ruby (Rn) BERNABE Walter Service: (none) Author Type: Registered Nurse Type: ED Notes Filed: 03/19/2018 4:36 PM Note Text: Patient presents to the ED from her PCP with positive orthostatics and dizziness. [facility] ED PROV NOTEon 03-19-2018 Protein mass conc HNO ID: [id number] thor: DION Snyder IIIervice: (none)Author Type: PhysicianType: ED Provider NotesFiled: 03/19/2018 10:29 PMNote Text:ED Provider NotePatient Name: Bo JacobMRN: [id number] DATE: 03/19/18HistoryPatient presents with:DizzinessHypertension6 2-year-old female, otherwise healthy, presents with dizziness, andtingling to upper lip. She states she's been dizzy for 4 days. Diagnosedwith vertigo at [facility] 2 days ago with a normal [...] The patient's never had a CVA or MA. She takesnothing for hypertension hyperlipidemia or diabetes. [...] for dizziness that's been4 days, seen at [place] with a normal CT and labs however [...] assessment of the patient andhave reviewed the PA/TIEING MACHINE OPERATOR note. My posada findings include:62-year-old female presents [...] MDDate: 03/19/2018Time: 10:28 PMStepanna Ballard III, 03/19/182228 [facility] EKGon 03-19-2018 Protein mass conc NAME : MADELINE JACOB SEPID : [id number] : 1955 Gender : FemaleRace : CaucasianORD : [id number] Procedure Date : Mar 19 2018 16:56:37Edit Date : Mar 20 2018 12:54:26 Diagnosis:NORMAL SINUS RHYTHMPOSSIBLE LEFT ATRIAL ENLARGEMENTLEFT AXIS DEVIATIONABNORMAL ECGNO PREVIOUS ECGS AVAILABLEConfirmed by MARIAH DINH M.D. ([id number]) on 03/20/2018 12:54:20 PM Ventricular Rate : 69 BPMAtrial Rate : 69 BPMP-R Interval : 148 msQRS Duration : 86 msQ-T Interval : 416 msQTC Calculation(Bezet) : 445 msP [place] : 33 degreesR [place] : -30 degreesT [place] : 12 degrees Test Reason : Dizziness Location : 1 : ER 11 Overread By : MARIAH DINH M.D.Edited By : MARIAH DINH M.D.Referred By : ,Acquired by : , [facility] HISTORY PHYSICALon HISTORY PHYSICAL HNO ID: [id number] thor: Matti Haqueervice: [facility] MedicineAuthor Type: PhysicianType: HANDPFiled: 03/19/2018 11:06 PMNote Text:HOSPITAL MEDICINEHISTORY AND PHYSICAL EXAMPATIENT NAME: Bo JacobMRN: [id number] DATE: 03/19/2018SERVICE TIME: 6:54 PMPrimary Care Physician: Loan Dias, NPNIGHT COVERAGEPage [phone] for any questions between 5.30p-7.30aASSESSMENT AND PLANActive Hospital Problems Diagnosis- Dizziness -dizziness for 4 days with intermittent blurred vision-continue antivert TID, valium made her drowsy-neuro consulted-tele monitoring-check A1C and lipid panel-BP control carefully-MRI in am-CT done 2 days ago at [place] with no acute intracranial process- Hypertensive urgency SBP >200 in ED, clonidine given with improvement-tele monitoring-vital signs [id number] COMPLAINT: Dizziness and elevated BPHPI: This is a 62 year old female who presents with no PMH who presentswith dizziness and high blood pressure. She states she started to feeldizzy 4 days ago and her daughter (who is a nurse practitioner) took herBP and found it to be elevated so she went to [place] ED to be evaluated andwas sent home [...] brain was done 2 days ago at [place] [facility] and found to be negative forany [...] and eval. Reviewed orders and HANDP from SENIOR QUALITY ASSURANCE ENGINEER.Patient presented with symptoms of vertigo x4 days [...] Aden MDDATE: March 19, 2018TIME: 11:01 PM [facility] Hemoglobin A1con 03-19-2018 Glucose mass conc 100 mg/dL [facility] Comment on above: Result Comment: eAG: (Estimated average glucose) is a calculated value from HgbA1c and is distribution sales representative of the average blood glucose level in the last 2-3 month period. Performed By: #### H BA1C ####[facility] [place], [place] [phone] Hemoglobin A1c/Hemoglobin.total mass fraction (Bld) 5.1 % Normal 4.3-5.6 [facility] Comment on above: Performed By: #### H BA1C ####[facility] [place], [place] [phone] High Sens Troponin Ton 03-19 High Sensitivity KACY <6 Normal <12 [facility] Comment on above: Result Comment: When [...] day MACE. Performed By: #### H STNT ####[facility] [address] [place], [place] [id number] High Sensitivity KACY <6 Normal <12 [facility] Comment on above: Result Comment: When [...] day MACE. Performed By: #### H STNT ####[facility] [address] [place] [phone] Magnesiumon 03-19-2018 Magnesium mass conc 2.3 mg/dL Normal 1.7-2.3 [facility] Comment on above: Performed By: #### C BCDIF, CMP, MG1 ####[facility] [address] [place] [address] XR CHEST 1V FRONTAL PORTon 0 03-19-2018 [...] or pleural effusions.Cardiomediastinal silhouette: Within normal limitsOther: .Emergency Specialist: PSCB Transcribe Date/Time: Mar 19 2018 5:08PDictated by : MARIBEL LINDSEY MDThigloria examination was interpreted and the report reviewed and electronically signed by: MARIBEL LINDSEY MD on Mar 19 2018 5:08PM [id number] [facility] CT HEAD W/O CONTRASTon 03-17 CT HEAD W/O CONTRAST Performed at [facility] APPROVED BY: Caleb Shanks MD EXAMINATION: CT [...] unremarkable. IMPRESSION: No acute intracranial abnormality. Normal [facility] Comprehensive Panelon 2017 Albumin mass conc 3.7 g/dL Normal 3.4-5.0 [facility] Comment on above: Performed By: #### L P14 ####[address] [address] ALP enzyme act/vol 99 U/L Normal 46-116 [facility] Comment on above: Performed By: #### L P14 ####[facility] [place], [place] [address] ALT-SGPT Blood 47 U/L Normal 14-63 [facility] Comment on above: Performed By: #### L P14 ####[address] [address] Anion gap 3 molar conc 9 mmol/L Normal 8-20 [facility] Comment on above: Performed By: #### L P14 ####[place] [address] AST-SGOT Blood 24 U/L Normal 15-37 [facility] Comment on above: Performed By: #### L P14 ####[place] [address] Bilirubin Ql (U) 0.6 mg/dL Normal 0.2-1.0 [facility] Comment on above: Performed By: #### L P14 ####[place] [address] Calcium mass conc 8.9 mg/dL Normal 8.5-10.1 [facility] Comment on above: Performed By: #### L P14 ####[place] [address] Chloride molar conc 110 mmol/L High 98-107 [facility] Comment on above: Performed By: #### L P14 ####[place] [address] CO2 molar conc 28 mmol/L Normal 21-32 [facility] Comment on above: Performed By: #### L P14 ####[address] [address] Creatinine mass conc 0.84 mg/dL Normal 0.51-0.95 [facility] Comment on above: Performed By: #### L P14 ####[place] [address] Glucose mass conc 108 mg/dL High 70-99 [facility] Comment on above: Performed By: #### L P14 ####[place] [address] Potassium molar conc 3.8 mmol/L Normal 3.5-5.1 [facility] Comment on above: Performed By: #### L P14 ####[facility] [place], [place] [address] Protein mass conc 6.9 g/dL Normal 6.4-8.2 [facility] Comment on above: Performed By: #### L P14 ####[facility] [place], [place] [address] Sodium molar conc 143 mmol/L Normal 136-145 [facility] Comment on above: Performed By: #### L P14 ####[facility] [place], [place] [address] Urea nitrogen mass conc (Bld) 19 mg/dL Normal 7-25 [facility] Comment on above: Performed By: #### L P14 ####[facility] [place] [address] Urea nitrogen/Creatinine mass ratio 23 mg/mg High 10-20 [facility] Comment on above: Performed By: #### L P14 ####[facility] [place], [place] [address] ED NOTEon 03-17-2018 ED NOTE HNO ID: [id number] Author: Maria Fernanda HendricksonRn) BERNABE Bolanos Service: (none) Author Type: Registered Nurse Type: ED Notes Filed: 03/17/2018 12:34 PM Note Text: Pt moving all extremities, speech clear No s/s of distress [facility] ED NOTE HNO ID: [id number] thor: Maria Fernanda Valdovinos (Rn) THERESA Bolanoservice: (none)Author Type: Registered NurseType: ED NotesFiled: 03/17/2018 12:29 PMNote Text:Dr Fong at bedsidePt resting quietlyStates Now I have a headache Reports 02/25Den improvement of dizzinessSpeech clear, moving all extremities, no s/s of distress [facility] ED NOTE HNO ID: [id number] Author: Maria Fernanda HendricksonRn) BERNABE Bolanos Service: (none) Author Type: Registered Nurse Type: ED Notes Filed: 03/17/2018 11:40 AM Note Text: Patient returned to the Emergency Department. [facility] ED NOTE HNO ID: [id number] Author: Maria Fernanda Valdovinos (Rn) BERNABE Bolanos Service: (none) Author Type: Registered Nurse Type: ED Notes Filed: 03/17/2018 11:40 AM Note Text: Patient transported to radiology with Tech. [facility] ED NOTE HNO ID: [id number] thor: Maria Fernanda Valdovinos (Rn) THERESA Bolanoservice: (none)Author Type: Registered NurseType: ED NotesFiled: 03/17/2018 12:03 PMNote Text: Patient informed: the name of medication, why we are giving it, possibleside effects, what they may expect to feel, and was offered a chance toask questions, prior to the administration of valium and zofran. [facility] ED NOTE HNO ID: [id number] thor: Maria Fernanda Zavala) Esme Bolanosice: (none)Author Type: Registered NurseType: ED NotesFiled: 03/17/2018 10:57 AMNote Text:To ED bed 5 via hospital wheelchair, c/o dizziness since SaturdayNo s/s of distress, moving all extremities. Dr Fong at bedside [facility] ED PROV NOTEon 03-17-2018 Protein mass conc HNO ID: [id number] thor: DION Ramirezervice: Emergency MedicineAuthor Type: PhysicianType: ED Provider NotesFiled: 03/17/2018 12:11 PMNote Text:ED Provider NotePatient Name: Bo JacobMRN: [id number] DATE: 03/17/18HistoryPatient presents with:DizzinessHPIPatient presents with 2 [...] stable condition.SIGNATURE: Archie Mccracken MD03/17/18 1211 [facility] Hemogram/Diffon 03-17-2018 Abs. Baso 0.05 thou/cmm Normal 0.00-0.08 [facility] Comment on above: Performed By: #### L CBCD ####[address] [address] Abs. [place] 0.45 thou/cmm Normal 0.20-1.00 [facility] Comment on above: Performed By: #### L CBCD ####[address] [address] Abs. Neut (ANC) 4.06 thou/cmm Normal 3.00-5.67 [facility] Comment on above: Performed By: #### L CBCD ####[address] [address] Basophils/100 WBC Auto (Bld) 0.8 % Normal [facility] Comment on above: Performed By: #### L CBCD ####[address] [address] Eosinophils Auto #/vol (Bld) 0.24 thou/cmm Normal 0.00-0.41 [facility] Comment on above: Performed By: #### L CBCD ####[address] [address] Eosinophils/100 WBC Auto (Bld) 3.9 % Normal [facility] Comment on above: Performed By: #### L CBCD ####[address] [address] Erythrocyte distribution width Auto Ratio (RBC) 13.1 % Normal 11.5-15.9 [facility] Comment on above: Performed By: #### L CBCD ####[address] [address] Hematocrit Auto Volume Fraction (Bld) 45.2 % Normal 37.0-47.0 [facility] Comment on above: Performed By: #### L CBCD ####[address] [address] Hemoglobin mass conc (Bld) 14.9 g/dL Normal 12.0-16.0 [facility] Comment on above: Performed By: #### L CBCD ####[address] [address] Lymphocytes Auto #/vol (Bld) 1.40 thou/cmm Low 1.50-3.65 [facility] Comment on above: Performed By: #### L CBCD ####[address] [address] Lymphocytes/100 WBC Auto (Bld) 22.6 % Normal [facility] Comment on above: Performed By: #### L CBCD ####[address] [address] MCH Auto Entitic mass (RBC) 30.5 pg Normal 27.0-31.0 [facility] Comment on above: Performed By: #### L CBCD ####[address] [address] MCHC Auto mass conc (RBC) 33.0 % Normal 32.0-36.0 [facility] Comment on above: Performed By: #### L CBCD ####[address] [address] MCV Auto Entitic volume (RBC) 92.4 fL Normal 81.0-99.0 [facility] Comment on above: Performed By: #### L CBCD ####[address] [address] Monocytes/100 WBC Auto (Bld) 7.3 % Normal [facility] Comment on above: Performed By: #### L CBCD ####[facility] [place] [address] Platelet mean volume Auto Entitic volume (Bld) 10.1 fL Normal 7.1-10.5 [facility] Comment on above: Performed By: #### L CBCD ####[place] [address] Platelets Auto #/vol (Bld) 251 thou/cmm Normal 150-400 [facility] Comment on above: Performed By: #### L CBCD ####[place] [address] RBC Auto #/vol (Bld) 4.89 mil/cmm Normal 4.20-5.40 [facility] Comment on above: Performed By: #### L CBCD ####[place] [address] Seg Neutrophil 65.4 % Normal [facility] Comment on above: Performed By: #### L CBCD ####[place] [address] WBC Auto #/vol (Bld) 6.2 thou/cmm Normal 4.8-10.8 [facility] Comment on above: Performed By: #### L CBCD ####[place] [address] MDRD eGFRon 03-17-2018 GFR/1.73 sq M predicted among non-blacks MDRD vol rate/area (S/P/Bld) mL/min/{1.73_m2} Normal >60mL/min/[address] [facility] Comment on above: Result Comment: If t he patient is , multiply the result by 1.210. Performed By: #### L GFR ####[place] [address] CNCOon 10-24-2017 [facility] HNO ID: [id number] thor: Mammography CoordinatorService: (none)Author Type: PhysicianType: LetterFiled: 10/28/2017 11:32 PMNote Text:October 24, 2017 PID: [id number] [id number] [place], [place] [address]Iayl Ms. Jacob,Your recent breast imaging examination performed [...] in meeting your health care needs.Sincerely,Dr. Gomez [facility] (# mo Follow-up) [facility] H[facility]: [id number] thor: Mammography CoordinatorService: (none)Author Type: PhysicianType: LetterFiled: 10/28/2017 11:32 PMNote Text:October 24, 2017 PID: [id number] [place], [place] [address]Ghwc Ms. Jacob,Your recent breast imaging examination performed [...] in meeting your health care needs.Sincerely,Dr. Gomez [facility] (# mo Follow-up) [facility] DEISY DIAGNOSTIC BILon 018 [facility] DIAGNOSTIC TRACEE * * *Final Report* * *DATE OF EXAM: Oct 24 2017 12:56PM CHRIS 0620 - [facility] DIAGNOSTIC TRACEE / REASON: breast mass n63 right * * * * Physician Interpretation * * * * #[id number] - [facility] DIAGNOSTIC BILBILATERAL DIGITAL DIAGNOSTIC MAMMOGRAM WITH CAD: 10/24/2017HISTORY: Breast Mass N63 Right /Bilateral Diagnostic Mammogram;Call Back/Abnormal Mammogram.RESULT:TECHNIQUE: The study was acquired using full field digital technology and interpreted from soft copy.Current study was also evaluated with a Computer Aided Detection (CAD).Comparison is made to exam dated: 10/11/2017 mammogram - [facility].The tissue of both breasts is predominantly [...] asymmetry in the right breast is probably benign.#[id number] - [facility] US BREAST LTD RTULTRASOUND OF RIGHT BREAST: 10/24/2017RESULT:Comparison is made to exam dated: 10/11/2017 mammogram - [facility].Ultrasound of the right breast was performed. [...] up recommended.Dimitri España/charlene:10/24/2017 13:35:38Imaging Technologist: Shelley CARLOS)(Susanna), [facility] Hospitalletter sent: # Mo FU OVERALL STUDY BIRADS: 3 Probably benign finding - short term interval follow-up recommendedTranscriptionist : CharleneTranscribe Date/Time: Oct 24 2017 12:38PDictated by : RICKEY STUARThis examination was interpreted and the report reviewed and electronically signed by: DIMITRI GODDARD DO on Oct 24 2017 1:35PM [id number] Normal [facility] US BREAST LTD RTon 10-24 [facility] US BREAST LTD RT * * *Final Report* * *DATE OF EXAM: Oct 24 2017 1:31PM MDU 0594 - [facility] BREAST LTD RT / REASON: ABNORMAL MAMMOGRAM * * * * Physician Interpretation * * * * #[id number] - [facility] DIAGNOSTIC BILBILATERAL DIGITAL DIAGNOSTIC MAMMOGRAM WITH CAD: 10/24/2017HISTORY: Breast Mass N63 Right /Bilateral Diagnostic Mammogram;Call Back/Abnormal Mammogram.RESULT:TECHNIQUE: The study was acquired using full field digital technology and interpreted from soft copy.Current study was also evaluated with a Computer Aided Detection (CAD).Comparison is made to exam dated: 10/11/2017 [facility].The tissue of both breasts is predominantly fatty.Prior [...] asymmetry in the right breast is probably benign.#[id number] - [facility] BREAST [facility] RTULTRASOUND OF RIGHT BREAST: 10/24/2017RESULT:Comparison is made to exam dated: [facility] the right breast was [...] up recommended.Dimitri España/charlene:10/24/2017 13:35:38Imaging Technologist: Shelley CARLOS)(Susanna), [facility] Hospitalletter sent: # Mo FU OVERALL STUDY BIRADS: 3 Probably benign finding - short term interval follow-up recommendedTranscriptionist : Juan Date/Time: Oct 24 2017 12:38PDictated by : Vini STUART examination was interpreted and the report reviewed and electronically signed by: DIMITRI GODDARD DO on Oct 24 2017 1:35PM [id number] [facility] CNCOon 10-11-2017 [facility] HNO ID: [id number] thor: Mammography CoordinatorService: (none)Author Type: PhysicianType: LetterFiled: 2017 11:33 PMNote Text:October 11, 2017 PID: [id number] [place], [place] [address]Szag Ms. Jacob,Your recent breast imaging exam on [...] in meeting your health care needs.Sincerely,Dr. GoddardInterpreting [facility] ([facility]) Normal [facility] SCREENINGon 10-11-2017 [facility] SCREENING * * *Final Report* * *DATE OF EXAM: Oct 11 2017 10:29AM CHRIS 0581 - [facility] SCREENING / REASON: Z12.39 SCREENING * * * * Physician Interpretation * * * * #[id number] - [facility] SCREENINGBILATERAL DIGITAL SCREENING MAMMOGRAM WITH CAD: 10/11/2017HISTORY: [...] recommended.Dimitri España/charlene:10/11/2017 12:57:42Imaging Technologist: Lisa HERNANDEZ (R)), [facility] Hospitalletter sent: Additional Imaging NeededMammogram BI-RADS: 0 Incomplete: needs additional imaging evaluationTranscriptionist: CharleneTranscribjasper Date/Time: Oct 11 2017 10:18ADictated by : Vini STUART examination was interpreted and the report reviewed and electronically signed by: DIMITRI GODDARD DO on Oct 11 2017 12:57PM [id number] Normal [facility] CHEST 2 VIEWSon 05-18-2017 Protein mass conc Performed at [facility] APPROVED BY: Tree Hernandez MD [...] ED NOTEon 05-18-2017 ED NOTE HNO ID: [id number] thor: Valeria (Rn) THERESA Munozervice: Emergency MedicineAuthor Type: Registered NurseType: ED NotesFiled: 05/18/2017 10:41 AMNote Text:Pt was leaning over a fence and felt a pop. Pt now having l rib pain thatis getting worse [facility] ED PROV NOTEon 05-18-2017 Protein mass conc HNO ID: [id number] thor: Emy Salgado, DIONervice: Emergency MedicineAuthor Type: PhysicianType: ED Provider NotesFiled: 05/18/2017 11:53 AMNote Text:ED Provider NotePatient Name: Bo JacobMRN: [id number] DATE: 05/18/17HistoryPatient presents with:Rib InjuryPatient is a [...] rib fxWill fu pcp, ED inc sx [place] painNo diagnosis found.PlanThe Patient was DISCHARGED: Counseled patient regarding suspecteddiagnosis AND need for follow-up. Discharged home with verbal and writteninstructions. They were instructed to return as needed for persistent orworsening symptoms or any new concerns.Condition at time of disposition: stableSIGNATURE: Tyrell Franco MD05/18/17 1153 [facility] Vital Signs Date Time Vital Sign Value Performing Clinician Facility 04-13-2025 15:12-0400 Body height 154.94 cm Loan Dias SENIOR QUALITY ASSURANCE ENGINEER-C Work Phone: [facility] [place] 04-13-2025 15:12-0400 Body mass index (BMI) [Ratio] 34.5 kg/m2 Loan Dias SENIOR QUALITY ASSURANCE ENGINEER-C Work Phone: [facility] [place] 04-13-2025 15:12-0400 Body temperature 97.5 [degF] Loan Dias SENIOR QUALITY ASSURANCE ENGINEER-C Work Phone: [facility] [place] 04-13-2025 15:12-0400 Body weight 83 kg Loan Dias SENIOR QUALITY ASSURANCE ENGINEER-C Work Phone: [facility] [place] 04-13-2025 15:12-0400 Diastolic blood pressure 60 mm[Hg] Laon Dias SENIOR QUALITY ASSURANCE ENGINEER-C Work Phone: [facility] [place] 04-13-2025 15:12-0400 Heart rate 106 /min Loan Dias SENIOR QUALITY ASSURANCE ENGINEER-C Work Phone: [facility] [place] 04-13-2025 15:12-0400 Respiratory rate 18 /min Loan Dias SENIOR QUALITY ASSURANCE ENGINEER-C Work Phone: [facility] [place] 04-13-2025 15:12-0400 SaO2% (BldA) [Mass fraction] 98 % Loan Dias SENIOR QUALITY ASSURANCE ENGINEER-C Work Phone: [facility] [place] 04-13-2025 15:12-0400 Systolic blood pressure 120 mm[Hg] Loanaruna Dias SENIOR QUALITY ASSURANCE ENGINEER-C Work Phone: [facility] [place] 04-08-2025 09:29-0400 Body height 154.94 cm Loan Dias SENIOR QUALITY ASSURANCE ENGINEER-C Work Phone: [facility] [place] 04-08-2025 09:29-0400 Body mass index (BMI) [Ratio] 34.5 kg/m2 Loanaruna Dias SENIOR QUALITY ASSURANCE ENGINEER-C Work Phone: [facility] [place] 04-08-2025 09:29-0400 Body weight 83 kg Loan Dias SENIOR QUALITY ASSURANCE ENGINEER-C Work Phone: [facility] [place] 04-08-2025 09:29-0400 Diastolic blood pressure 83 mm[Hg] Loan Dias SENIOR QUALITY ASSURANCE ENGINEER-C Work Phone: [facility] [place] 04-08-2025 09:29-0400 Heart rate 85 /min Loanaruna Dias SENIOR QUALITY ASSURANCE ENGINEER-C Work Phone: [facility] [place] 04-08-2025 09:29-0400 SaO2% (BldA) [Mass fraction] 98 % Loan Dias SENIOR QUALITY ASSURANCE ENGINEER-C Work Phone: [facility] [place] 04-08-2025 09:29-0400 Systolic blood pressure 129 mm[Hg] Loan Dias SENIOR QUALITY ASSURANCE ENGINEER-C Work Phone: [facility] [place] 04-04-2025 03:57-0400 Body temperature 98 [degF] Loan Dias SENIOR QUALITY ASSURANCE ENGINEER-C Work Phone: [facility] [place] 04-04-2025 03:57-0400 Diastolic blood pressure 90 mm[Hg] Loan Dias SENIOR QUALITY ASSURANCE ENGINEER-C Work Phone: [facility] [place] 04-04-2025 03:57-0400 Heart rate 70 /min Loan iDas SENIOR QUALITY ASSURANCE ENGINEER-C Work Phone: [phone] [place] [address] 04-04-2025 03:57-0400 Respiratory rate 12 /min Loanaruna Dias SENIOR QUALITY ASSURANCE ENGINEER-C Work Phone: [facility] [place] 04-04-2025 03:57-0400 SaO2% (BldA) [Mass fraction] 96 % Loan Dias SENIOR QUALITY ASSURANCE ENGINEER-C Work Phone: [facility] [place] 04-04-2025 03:57-0400 Systolic blood pressure 129 mm[Hg] Loanaruna Dias SENIOR QUALITY ASSURANCE ENGINEER-C Work Phone: [phone](054)376-291832 [place] [address] 04-04-2025 01:05-0400 Body height 154.94 cm Loanaruna Dias SENIOR QUALITY ASSURANCE ENGINEER-C Work Phone: [phone] [place] [address] 04-04-2025 01:05-0400 Body mass index (BMI) [Ratio] 36.1 kg/m2 Loanaruna Dias SENIOR QUALITY ASSURANCE ENGINEER-C Work Phone: 5(547)055-655232 [place] [address] 04-04-2025 01:05-0400 Body weight 86.8 kg Loanaruna Dias SENIOR QUALITY ASSURANCE ENGINEER-C Work Phone: 4(671)[phone] [place] [address] 03-12-2025 11:14-0400 Body height 154.94 cm Loanaruna Dias SENIOR QUALITY ASSURANCE ENGINEER-C Work Phone: 5(081)[phone] [place] [address] 03-12-2025 11:14-0400 Body mass index (BMI) [Ratio] 35.1 kg/m2 Loanaruna Dias SENIOR QUALITY ASSURANCE ENGINEER-C Work Phone: [facility] [place] 03-12-2025 11:14-0400 Body weight 84.36 kg Loanaruna Dias SENIOR QUALITY ASSURANCE ENGINEER-C Work Phone: [phone](364)174-576132 [place] [address] 03-12-2025 11:14-0400 Diastolic blood pressure 79 mm[Hg] Loan Dias SENIOR QUALITY ASSURANCE ENGINEER-C Work Phone: 3(350)469-307032 [place] [address] 03-12-2025 11:14-0400 Heart rate 80 /min Loanaruna Dias SENIOR QUALITY ASSURANCE ENGINEER-C Work Phone: [phone](842)523-783832 [place] [address] 03-12-2025 11:14-0400 Respiratory rate 16 /min Loanaruna Dias SENIOR QUALITY ASSURANCE ENGINEER-C Work Phone: [facility] [place] 03-12-2025 11:14-0400 Systolic blood pressure 113 mm[Hg] Loan Dias SENIOR QUALITY ASSURANCE ENGINEER-C Work Phone: [facility] [place] 03-10-2025 13:47-0400 Body height 154.94 cm Loan Dias SENIOR QUALITY ASSURANCE ENGINEER-C Work Phone: [facility] [place] 03-10-2025 13:47-0400 Body mass index (BMI) [Ratio] 34 kg/m2 Loan Dias SENIOR QUALITY ASSURANCE ENGINEER-C Work Phone: [facility] [place] 03-10-2025 13:47-0400 Body weight 81.7 kg Loan Dias SENIOR QUALITY ASSURANCE ENGINEER-C Work Phone: [facility] [place] 03-10-2025 08:54-0400 Body height 154.9 cm Jarred Angeli DPM Work Phone: [facility] 03-10-2025 08:54-0400 Body mass index (BMI) [Ratio] 33.63 kg/m2 Jarred Angeli DPM Work Phone: [facility] 03-10-2025 08:54-0400 Body weight 80.74 kg Jarred Angeli DPM Work Phone: [facility] 03-10-2025 08:54-0400 Respiratory rate 18 /min Jarred Angeli DPM Work Phone: [facility] 12-14-2024 15:36-0400 Body mass index (BMI) [Ratio] 33.6 kg/m2 Loan Dias SENIOR QUALITY ASSURANCE ENGINEER-C Work Phone: [facility] [place] 12-14-2024 15:36-0400 Body temperature 96.7 [degF] Loan Dias SENIOR QUALITY ASSURANCE ENGINEER-C Work Phone: [facility] [place] 12-14-2024 15:36-0400 Body weight 80.73 kg Loan Dias SENIOR QUALITY ASSURANCE ENGINEER-C Work Phone: [facility] [place] 12-14-2024 15:36-0400 Diastolic blood pressure 84 mm[Hg] Loanaruna GalloDias SENIOR QUALITY ASSURANCE ENGINEER-C Work Phone: [facility] [place] 12-14-2024 15:36-0400 Heart rate 63 /min Loanaruna GalloDias SENIOR QUALITY ASSURANCE ENGINEER-C Work Phone: [facility] [place] 12-14-2024 15:36-0400 Respiratory rate 16 /min Loanaruna GalloDias SENIOR QUALITY ASSURANCE ENGINEER-C Work Phone: [facility] [place] 12-14-2024 15:36-0400 SaO2% (BldA) [Mass fraction] 100 % Loanaruna GalloDias SENIOR QUALITY ASSURANCE ENGINEER-C Work Phone: [facility] [place] 12-14-2024 15:36-0400 Systolic blood pressure 144 mm[Hg] Loan Dias SENIOR QUALITY ASSURANCE ENGINEER-C Work Phone: [facility] [place] 12-09-2024 11:01-0400 Body temperature 98.29 [degF] Nurse Pob Work Phone: [facility] 11-04-2024 14:42-0400 Body mass index (BMI) [Ratio] 31.18 kg/m2 Francisco Gorman MD Work Phone: [facility] 11-04-2024 14:42-0400 Body weight 74.84 kg Francisco Gorman MD Work Phone: [facility] 11-04-2024 14:42-0400 Diastolic blood pressure 87 mm[Hg] Francisco Groman MD Work Phone: [facility] 11-04-2024 14:42-0400 Heart rate 76 /min Francisco Gorman MD Work Phone: [facility] 11-04-2024 14:42-0400 SaO2% (BldA) [Mass fraction] 98 % Francisco Gorman MD Work Phone: [facility] 11-04-2024 14:42-0400 Systolic blood pressure 143 mm[Hg] Francisco Gorman MD Work Phone: [facility] 10-28-2024 10:07-0400 Body mass index (BMI) [Ratio] 31.55 kg/m2 Smith Lopez MD Work Phone: [facility] 10-28-2024 10:07-0400 Body weight 75.75 kg Smith Lopez MD Work Phone: [facility] 10-28-2024 10:07-0400 Diastolic blood pressure 80 mm[Hg] Smith Lopez MD Work Phone: [facility] 10-28-2024 10:07-0400 Heart rate 73 /min Smith Lopez MD Work Phone: [facility] 10-28-2024 10:07-0400 SaO2% (BldA) [Mass fraction] 98 % Smith Lopez MD Work Phone: [facility] 10-28-2024 10:07-0400 Systolic blood pressure 138 mm[Hg] Smith Lopez MD Work Phone: [facility] 10-27-2024 14:34-0400 Body height 154.94 cm Loan Dias SENIOR QUALITY ASSURANCE ENGINEER-C Work Phone: [facility] [place] 10-27-2024 14:34-0400 Body mass index (BMI) [Ratio] 32.7 kg/m2 Loan Dias SENIOR QUALITY ASSURANCE ENGINEER-C Work Phone: [facility] [place] 10-27-2024 14:34-0400 Body temperature 97.8 [degF] Loan Dias SENIOR QUALITY ASSURANCE ENGINEER-C Work Phone: [facility] [place] 10-27-2024 14:34-0400 Body weight 78.52 kg Loan Dias SENIOR QUALITY ASSURANCE ENGINEER-C Work Phone: [facility] [place] 10-27-2024 14:34-0400 Diastolic blood pressure 76 mm[Hg] Loan Dias SENIOR QUALITY ASSURANCE ENGINEER-C Work Phone: [facility] [place] 10-27-2024 14:34-0400 Heart rate 86 /min Loan Dias SENIOR QUALITY ASSURANCE ENGINEER-C Work Phone: [facility] [place] 10-27-2024 14:34-0400 Respiratory rate 18 /min Loan Dias SENIOR QUALITY ASSURANCE ENGINEER-C Work Phone: [facility] [place] 10-27-2024 14:34-0400 SaO2% (BldA) [Mass fraction] 100 % Loan Dias SENIOR QUALITY ASSURANCE ENGINEER-C Work Phone: [facility] [place] 10-27-2024 14:34-0400 Systolic blood pressure 174 mm[Hg] Loan Dias SENIOR QUALITY ASSURANCE ENGINEER-C Work Phone: [facility] [place] 10-08-2024 17:44-0500 Body mass index (BMI) [Ratio] 32.3 kg/m2 Loan Dias SENIOR QUALITY ASSURANCE ENGINEER-C Work Phone: [facility] [place] 10-08-2024 17:44-0500 Body temperature 97.7 [degF] Loan Dias SENIOR QUALITY ASSURANCE ENGINEER-C Work Phone: [facility] [place] 10-08-2024 17:44-0500 Body weight 77.56 kg Loan Dias SENIOR QUALITY ASSURANCE ENGINEER-C Work Phone: [facility] [place] 10-08-2024 17:44-0500 Diastolic blood pressure 60 mm[Hg] Loan Dias SENIOR QUALITY ASSURANCE ENGINEER-C Work Phone: [facility] [place] 10-08-2024 17:44-0500 Heart rate 80 /min Loan Dias SENIOR QUALITY ASSURANCE ENGINEER-C Work Phone: [facility] [place] 10-08-2024 17:44-0500 Respiratory rate 18 /min Loan Dias SENIOR QUALITY ASSURANCE ENGINEER-C Work Phone: [facility] [place] 10-08-2024 17:44-0500 SaO2% (BldA) [Mass fraction] 98 % Loan Dias SENIOR QUALITY ASSURANCE ENGINEER-C Work Phone: [facility] [place] 10-08-2024 17:44-0500 Systolic blood pressure 140 mm[Hg] Loan Dias SENIOR QUALITY ASSURANCE ENGINEER-C Work Phone: [facility] [place] 09-21-2024 10:29-0500 Body mass index (BMI) [Ratio] 32.9 kg/m2 Loan Dias SENIOR QUALITY ASSURANCE ENGINEER-C Work Phone: [facility] [place] 09-21-2024 10:29-0500 Body temperature 98.3 [degF] Loan Dias SENIOR QUALITY ASSURANCE ENGINEER-C Work Phone: [facility] [place] 09-21-2024 10:29-0500 Body weight 79.03 kg Loan Dias SENIOR QUALITY ASSURANCE ENGINEER-C Work Phone: [facility] [place] 09-21-2024 10:29-0500 Diastolic blood pressure 85 mm[Hg] Loan Dias SENIOR QUALITY ASSURANCE ENGINEER-C Work Phone: [facility] [place] 09-21-2024 10:29-0500 Heart rate 77 /min Loan Dias SENIOR QUALITY ASSURANCE ENGINEER-C Work Phone: [facility] [place] 09-21-2024 10:29-0500 Respiratory rate 18 /min Loan Dias SENIOR QUALITY ASSURANCE ENGINEER-C Work Phone: [facility] [place] 09-21-2024 10:29-0500 SaO2% (BldA) [Mass fraction] 98 % Loan Dias SENIOR QUALITY ASSURANCE ENGINEER-C Work Phone: [facility] [place] 09-21-2024 10:29-0500 Systolic blood pressure 124 mm[Hg] Loan Dias SENIOR QUALITY ASSURANCE ENGINEER-C Work Phone: [facility] [place] 09-10-2024 15:00-0500 Diastolic blood pressure 71 mm[Hg] Smith Lopez MD Work Phone: [facility] 09-10-2024 15:00-0500 Systolic blood pressure 121 mm[Hg] Smith Lopez MD Work Phone: [facility] 09-10-2024 14:30-0500 Heart rate 88 /min Smith Lopez MD Work Phone: [facility] 09-10-2024 14:30-0500 Respiratory rate 28 /min Smith Lopez MD Work Phone: [facility] 09-10-2024 14:30-0500 SaO2% (BldA) [Mass fraction] 97 % Smith Lopez MD Work Phone: [facility] 08-31-2024 09:07-0500 Body mass index (BMI) [Ratio] 33.5 kg/m2 Loan Dias SENIOR QUALITY ASSURANCE ENGINEER-C Work Phone: [facility] [place] 08-31-2024 09:07-0500 Body weight 80.45 kg Loan Dias SENIOR QUALITY ASSURANCE ENGINEER-C Work Phone: [facility] [place] 07-27-2024 10:20-0500 Body height 154.9 cm Ilng Mikula JEWELRY JOBBER.DRAW PRESS OPERATOR Work Phone: [facility] 07-27-2024 10:20-0500 Body mass index (BMI) [Ratio] 32.12 kg/m2 Ling Mikula JEWELRY JOBBER.DRAW PRESS OPERATOR Work Phone: [facility] 07-27-2024 10:20-0500 Body weight 77.11 kg Ling Mikula JEWELRY JOBBER.DRAW PRESS OPERATOR Work Phone: [facility] 07-27-2024 10:20-0500 Diastolic blood pressure 72 mm[Hg] Ling Mikula JEWELRY JOBBER.DRAW PRESS OPERATOR Work Phone: [facility] 07-27-2024 10:20-0500 Heart rate 81 /min Ling Mikula JEWELRY JOBBER.DRAW PRESS OPERATOR Work Phone: [facility] 07-27-2024 10:20-0500 Systolic blood pressure 125 mm[Hg] Ling Mikula JEWELRY JOBBER.DRAW PRESS OPERATOR Work Phone: [facility] 06-24-2024 10:09-0500 Body height 154.9 cm Smith Lopez MD Work Phone: [facility] 06-24-2024 10:09-0500 Body mass index (BMI) [Ratio] 32.69 kg/m2 Smith Lopez MD Work Phone: [facility] 06-24-2024 10:09-0500 Body weight 78.47 kg Smith Lopez MD Work Phone: [facility] 06-24-2024 10:09-0500 Diastolic blood pressure 80 mm[Hg] Smith Lopez MD Work Phone: [facility] 06-24-2024 10:09-0500 Heart rate 92 /min Smith Lopez MD Work Phone: [facility] 06-24-2024 10:09-0500 Respiratory rate 18 /min Smith Lopez MD Work Phone: [facility] 06-24-2024 10:09-0500 SaO2% (BldA) [Mass fraction] 98 % Smith Lopez MD Work Phone: [facility] 06-24-2024 10:09-0500 Systolic blood pressure 120 mm[Hg] Smith Lopez MD Work Phone: [facility] 06-09-2024 13:23-0400 Body height 154.9 cm Ling Mikula JEWELRY JOBBER.DRAW PRESS OPERATOR Work Phone: [facility] 06-09-2024 13:23-0400 Body mass index (BMI) [Ratio] 31.74 kg/m2 Ling Mikula JEWELRY JOBBER.DRAW PRESS OPERATOR Work Phone: [facility] 06-09-2024 13:23-0400 Body weight 76.2 kg Ling Mikula JEWELRY JOBBER.DRAW PRESS OPERATOR Work Phone: [facility] 06-09-2024 13:23-0400 Diastolic blood pressure 88 mm[Hg] Ling Mikula JEWELRY JOBBER.DRAW PRESS OPERATOR Work Phone: [facility] 06-09-2024 13:23-0400 Heart rate 82 /min Ling Mikula JEWELRY JOBBER.DRAW PRESS OPERATOR Work Phone: [facility] 06-09-2024 13:23-0400 Systolic blood pressure 150 mm[Hg] Ling Mikula JEWELRY JOBBER.DRAW PRESS OPERATOR Work Phone: [facility] 12-21-2023 10:27-0400 Body height 154.94 cm SENIOR QUALITY ASSURANCE ENGINEER-C Loan Dias SENIOR QUALITY ASSURANCE ENGINEER Work Phone: [facility] [place] 12-21-2023 10:27-0400 Body mass index (BMI) [Ratio] 33.8 kg/m2 SENIOR QUALITY ASSURANCE ENGINEER-C Loan Galloson SENIOR QUALITY ASSURANCE ENGINEER Work Phone: [facility] [place] 12-21-2023 10:27-0400 Body temperature 96.9 [degF] SENIOR QUALITY ASSURANCE ENGINEER-C Loan Dias SENIOR QUALITY ASSURANCE ENGINEER Work Phone: [facility] [place] 12-21-2023 10:27-0400 Body weight 81.19 kg SENIOR QUALITY ASSURANCE ENGINEER-C Loan Dias SENIOR QUALITY ASSURANCE ENGINEER Work Phone: [facility] [place] 12-21-2023 10:27-0400 Diastolic blood pressure 85 mm[Hg] SENIOR QUALITY ASSURANCE ENGINEER-C Loan Galloson SENIOR QUALITY ASSURANCE ENGINEER Work Phone: [facility] [place] 12-21-2023 10:27-0400 Heart rate 60 /min SENIOR QUALITY ASSURANCE ENGINEER-C Loan Dias SENIOR QUALITY ASSURANCE ENGINEER Work Phone: [facility] [place] 12-21-2023 10:27-0400 Respiratory rate 14 /min SENIOR QUALITY ASSURANCE ENGINEER-C Loan Dias SENIOR QUALITY ASSURANCE ENGINEER Work Phone: [facility] [place] 12-21-2023 10:27-0400 SaO2% (BldA) [Mass fraction] 97 % SENIOR QUALITY ASSURANCE ENGINEER-C Loan Dias SENIOR QUALITY ASSURANCE ENGINEER Work Phone: [facility] [place] 12-21-2023 10:27-0400 Systolic blood pressure 107 mm[Hg] SENIOR QUALITY ASSURANCE ENGINEER-C Loan Galloson SENIOR QUALITY ASSURANCE ENGINEER Work Phone: [facility] [place] 12-12-2023 15:09-0400 Body temperature 98.1 [degF] SENIOR QUALITY ASSURANCE ENGINEER-C Loan Galloson SENIOR QUALITY ASSURANCE ENGINEER Work Phone: [facility] [place] 12-12-2023 15:09-0400 Diastolic blood pressure 74 mm[Hg] SENIOR QUALITY ASSURANCE ENGINEER-C Loan Dias SENIOR QUALITY ASSURANCE ENGINEER Work Phone: [facility] [place] 12-12-2023 15:09-0400 Heart rate 82 /min SENIOR QUALITY ASSURANCE ENGINEER-C Loan Galloson SENIOR QUALITY ASSURANCE ENGINEER Work Phone: [facility] [place] 12-12-2023 15:09-0400 Respiratory rate 16 /min SENIOR QUALITY ASSURANCE ENGINEER-C Loan Dias SENIOR QUALITY ASSURANCE ENGINEER Work Phone: [facility] [place] 12-12-2023 15:09-0400 SaO2% (BldA) [Mass fraction] 99 % SENIOR QUALITY ASSURANCE ENGINEER-C Loan Dias SENIOR QUALITY ASSURANCE ENGINEER Work Phone: [facility] [place] 12-12-2023 15:09-0400 Systolic blood pressure 138 mm[Hg] SENIOR QUALITY ASSURANCE ENGINEER-C Loan Dias SENIOR QUALITY ASSURANCE ENGINEER Work Phone: [facility] [place] 12-12-2023 12:25-0400 Body height 154.94 cm SENIOR QUALITY ASSURANCE ENGINEER-C Loan Dias SENIOR QUALITY ASSURANCE ENGINEER Work Phone: [facility] [place] 12-12-2023 12:25-0400 Body mass index (BMI) [Ratio] 34.2 kg/m2 SENIOR QUALITY ASSURANCE ENGINEER-C Loan Dias SENIOR QUALITY ASSURANCE ENGINEER Work Phone: [facility] [place] 12-12-2023 12:25-0400 Body weight 82.29 kg SENIOR QUALITY ASSURANCE ENGINEER-C Loan Dias SENIOR QUALITY ASSURANCE ENGINEER Work Phone: [facility] [place] 12-03-2023 16:05-0400 Body temperature 98.3 [degF] SENIOR QUALITY ASSURANCE ENGINEER-C Loan Dias SENIOR QUALITY ASSURANCE ENGINEER Work Phone: [facility] [place] 12-03-2023 16:05-0400 Diastolic blood pressure 75 mm[Hg] SENIOR QUALITY ASSURANCE ENGINEER-C Loan Dias SENIOR QUALITY ASSURANCE ENGINEER Work Phone: [facility] [place] 12-03-2023 16:05-0400 Heart rate 70 /min SENIOR QUALITY ASSURANCE ENGINEER-C Loan Dias SENIOR QUALITY ASSURANCE ENGINEER Work Phone: [facility] [place] 12-03-2023 16:05-0400 Respiratory rate 16 /min SENIOR QUALITY ASSURANCE ENGINEER-C Loan Dias SENIOR QUALITY ASSURANCE ENGINEER Work Phone: [facility] [place] 12-03-2023 16:05-0400 SaO2% (BldA) [Mass fraction] 96 % SENIOR QUALITY ASSURANCE ENGINEER-C Loan Dias SENIOR QUALITY ASSURANCE ENGINEER Work Phone: 5(346)290-[address] [place] [address] 12-03-2023 16:05-0400 Systolic blood pressure 132 mm[Hg] SENIOR QUALITY ASSURANCE ENGINEER-C Loan Dias SENIOR QUALITY ASSURANCE ENGINEER Work Phone: [facility] [place] 12-03-2023 14:30-0400 Inhaled oxygen flow rate 1 L/min SENIOR QUALITY ASSURANCE ENGINEER-C Loan Dias SENIOR QUALITY ASSURANCE ENGINEER Work Phone: [facility] [place] 12-03-2023 09:37-0400 Body height 154.94 cm SENIOR QUALITY ASSURANCE ENGINEER-C Loan Dias SENIOR QUALITY ASSURANCE ENGINEER Work Phone: [facility] [place] 12-03-2023 09:37-0400 Body mass index (BMI) [Ratio] 34.3 kg/m2 SENIOR QUALITY ASSURANCE ENGINEER-C Loan Dias SENIOR QUALITY ASSURANCE ENGINEER Work Phone: [phone] [place] [address] 12-03-2023 09:37-0400 Body weight 82.5 kg SENIOR QUALITY ASSURANCE ENGINEER-C Loan Dias SENIOR QUALITY ASSURANCE ENGINEER Work Phone: [facility] [place] 11-04-2023 11:12-0400 Body height 154.94 cm SENIOR QUALITY ASSURANCE ENGINEER-C Loan Dias SENIOR QUALITY ASSURANCE ENGINEER Work Phone: [facility] [place] 11-04-2023 11:12-0400 Body mass index (BMI) [Ratio] 35.3 kg/m2 SENIOR QUALITY ASSURANCE ENGINEER-C Loan Galloson SENIOR QUALITY ASSURANCE ENGINEER Work Phone: [facility] [place] 11-04-2023 11:12-0400 Body weight 84.82 kg SENIOR QUALITY ASSURANCE ENGINEER-C Loan Dias SENIOR QUALITY ASSURANCE ENGINEER Work Phone: [facility] [place] 11-04-2023 11:12-0400 Diastolic blood pressure 77 mm[Hg] SENIOR QUALITY ASSURANCE ENGINEER-C Loan Dias SENIOR QUALITY ASSURANCE ENGINEER Work Phone: [facility] [place] 11-04-2023 11:12-0400 Heart rate 76 /min SENIOR QUALITY ASSURANCE ENGINEER-C Loan Galloson SENIOR QUALITY ASSURANCE ENGINEER Work Phone: [facility] [place] 11-04-2023 11:12-0400 Respiratory rate 18 /min SENIOR QUALITY ASSURANCE ENGINEER-C Loan Dias SENIOR QUALITY ASSURANCE ENGINEER Work Phone: [facility] [place] 11-04-2023 11:12-0400 SaO2% (BldA) [Mass fraction] 100 % SENIOR QUALITY ASSURANCE ENGINEER-C Loan Dias SENIOR QUALITY ASSURANCE ENGINEER Work Phone: [facility] [place] 11-04-2023 11:12-0400 Systolic blood pressure 115 mm[Hg] SENIOR QUALITY ASSURANCE ENGINEER-C Loan Galloson SENIOR QUALITY ASSURANCE ENGINEER Work Phone: [facility] [place] 11-04-2023 08:58-0400 Body mass index (BMI) [Ratio] 35.3 kg/m2 SENIOR QUALITY ASSURANCE ENGINEER-C Loan Dias SENIOR QUALITY ASSURANCE ENGINEER Work Phone: [facility] [place] 11-04-2023 08:58-0400 Body temperature 97.6 [degF] SENIOR QUALITY ASSURANCE ENGINEER-C Loan Dias SENIOR QUALITY ASSURANCE ENGINEER Work Phone: [facility] [place] 11-04-2023 08:58-0400 Body weight 84.85 kg SENIOR QUALITY ASSURANCE ENGINEER-C Loan Dias SENIOR QUALITY ASSURANCE ENGINEER Work Phone: [facility] [place] 11-04-2023 08:58-0400 Diastolic blood pressure 75 mm[Hg] SENIOR QUALITY ASSURANCE ENGINEER-C Loan Dias SENIOR QUALITY ASSURANCE ENGINEER Work Phone: [facility] [place] 11-04-2023 08:58-0400 Heart rate 83 /min SENIOR QUALITY ASSURANCE ENGINEER-C Loan Dias SENIOR QUALITY ASSURANCE ENGINEER Work Phone: [facility] [place] 11-04-2023 08:58-0400 Respiratory rate 16 /min SENIOR QUALITY ASSURANCE ENGINEER-C Loan Dias SENIOR QUALITY ASSURANCE ENGINEER Work Phone: [facility] [place] 11-04-2023 08:58-0400 SaO2% (BldA) [Mass fraction] 97 % SENIOR QUALITY ASSURANCE ENGINEER-C Loan Galloson SENIOR QUALITY ASSURANCE ENGINEER Work Phone: [facility] [place] 11-04-2023 08:58-0400 Systolic blood pressure 110 mm[Hg] SENIOR QUALITY ASSURANCE ENGINEER-C Loan Galloson SENIOR QUALITY ASSURANCE ENGINEER Work Phone: [facility] [place] 10-11-2023 17:46-0500 Body mass index (BMI) [Ratio] 36.2 kg/m2 SENIOR QUALITY ASSURANCE ENGINEER-C Loan Galloson SENIOR QUALITY ASSURANCE ENGINEER Work Phone: [facility] [place] 10-11-2023 17:46-0500 Body temperature 97.5 [degF] SENIOR QUALITY ASSURANCE ENGINEER-C Loan Dias SENIOR QUALITY ASSURANCE ENGINEER Work Phone: [facility] [place] 10-11-2023 17:46-0500 Body weight 87.08 kg SENIOR QUALITY ASSURANCE ENGINEER-C Loan Dias SENIOR QUALITY ASSURANCE ENGINEER Work Phone: [facility] [place] 10-11-2023 17:46-0500 Diastolic blood pressure 80 mm[Hg] SENIOR QUALITY ASSURANCE ENGINEER-C Laon Dias SENIOR QUALITY ASSURANCE ENGINEER Work Phone: [facility] [place] 10-11-2023 17:46-0500 Heart rate 76 /min SENIOR QUALITY ASSURANCE ENGINEER-C Loan Dias SENIOR QUALITY ASSURANCE ENGINEER Work Phone: [facility] [place] 10-11-2023 17:46-0500 Respiratory rate 18 /min SENIOR QUALITY ASSURANCE ENGINEER-C Loan Dias SENIOR QUALITY ASSURANCE ENGINEER Work Phone: [facility] [place] 10-11-2023 17:46-0500 SaO2% (BldA) [Mass fraction] 98 % SENIOR QUALITY ASSURANCE ENGINEER-C Loan Dias SENIOR QUALITY ASSURANCE ENGINEER Work Phone: [facility] [place] 10-11-2023 17:46-0500 Systolic blood pressure 142 mm[Hg] SENIOR QUALITY ASSURANCE ENGINEER-C Loan Dias SENIOR QUALITY ASSURANCE ENGINEER Work Phone: [facility] [place] 09-23-2023 10:37-0500 Body height 154.94 cm SENIOR QUALITY ASSURANCE ENGINEER-C Loan Dias SENIOR QUALITY ASSURANCE ENGINEER Work Phone: [facility] [place] 09-23-2023 10:37-0500 Body mass index (BMI) [Ratio] 36.7 kg/m2 SENIOR QUALITY ASSURANCE ENGINEER-C Loan Dias SENIOR QUALITY ASSURANCE ENGINEER Work Phone: [facility] [place] 09-23-2023 10:37-0500 Body temperature 99.1 [degF] SENIOR QUALITY ASSURANCE ENGINEER-C Loan Dias SENIOR QUALITY ASSURANCE ENGINEER Work Phone: [facility] [place] 09-23-2023 10:37-0500 Body weight 88.11 kg SENIOR QUALITY ASSURANCE ENGINEER-C Loan Dias SENIOR QUALITY ASSURANCE ENGINEER Work Phone: [facility] [place] 09-23-2023 10:37-0500 Diastolic blood pressure 72 mm[Hg] SENIOR QUALITY ASSURANCE ENGINEER-C Loan Dias SENIOR QUALITY ASSURANCE ENGINEER Work Phone: [facility] [place] 09-23-2023 10:37-0500 Heart rate 75 /min SENIOR QUALITY ASSURANCE ENGINEER-C Loan Dias SENIOR QUALITY ASSURANCE ENGINEER Work Phone: [facility] [place] 09-23-2023 10:37-0500 Respiratory rate 18 /min SENIOR QUALITY ASSURANCE ENGINEER-C Loan Dias SENIOR QUALITY ASSURANCE ENGINEER Work Phone: [facility] [place] 09-23-2023 10:37-0500 SaO2% (BldA) [Mass fraction] 99 % SENIOR QUALITY ASSURANCE ENGINEER-C Loan Dias SENIOR QUALITY ASSURANCE ENGINEER Work Phone: [facility] [place] 09-23-2023 10:37-0500 Systolic blood pressure 105 mm[Hg] SENIOR QUALITY ASSURANCE ENGINEER-C Loan Dias SENIOR QUALITY ASSURANCE ENGINEER Work Phone: [facility] [place] 09-09-2023 10:18-0500 Body mass index (BMI) [Ratio] 37.3 kg/m2 SENIOR QUALITY ASSURANCE ENGINEER-C Loan Dias SENIOR QUALITY ASSURANCE ENGINEER Work Phone: [phone] [place] [address] 09-09-2023 10:18-0500 Body weight 89.58 kg SENIOR QUALITY ASSURANCE ENGINEER-C Loan Dias SENIOR QUALITY ASSURANCE ENGINEER Work Phone: [facility] [place] 08-06-2023 13:28-0500 Body height 154.94 cm SENIOR QUALITY ASSURANCE ENGINEER-C Loan Dias SENIOR QUALITY ASSURANCE ENGINEER Work Phone: [facility] [place] 08-06-2023 13:28-0500 Body mass index (BMI) [Ratio] 38.1 kg/m2 SENIOR QUALITY ASSURANCE ENGINEER-C Loan Dias SENIOR QUALITY ASSURANCE ENGINEER Work Phone: [facility] [place] 08-06-2023 13:28-0500 Body weight 91.62 kg SENIOR QUALITY ASSURANCE ENGINEER-C Loan Dias SENIOR QUALITY ASSURANCE ENGINEER Work Phone: [facility] [place] 08-06-2023 13:28-0500 Diastolic blood pressure 82 mm[Hg] SENIOR QUALITY ASSURANCE ENGINEER-C Loan Dias SENIOR QUALITY ASSURANCE ENGINEER Work Phone: [facility] [place] 08-06-2023 13:28-0500 Heart rate 79 /min SENIOR QUALITY ASSURANCE ENGINEER-C Loan Dias SENIOR QUALITY ASSURANCE ENGINEER Work Phone: [phone] [place] [address] 08-06-2023 13:28-0500 Respiratory rate 18 /min SENIOR QUALITY ASSURANCE ENGINEER-C Loan Dias SENIOR QUALITY ASSURANCE ENGINEER Work Phone: [facility] [place] 08-06-2023 13:28-0500 SaO2% (BldA) [Mass fraction] 99 % SENIOR QUALITY ASSURANCE ENGINEER-C Loan Dias SENIOR QUALITY ASSURANCE ENGINEER Work Phone: [facility] [place] 08-06-2023 13:28-0500 Systolic blood pressure 125 mm[Hg] SENIOR QUALITY ASSURANCE ENGINEER-C Loan Dias SENIOR QUALITY ASSURANCE ENGINEER Work Phone: [facility] [place] 07-29-2023 19:57-0500 Body height 154.94 cm SENIOR QUALITY ASSURANCE ENGINEER-C Loan Dias SENIOR QUALITY ASSURANCE ENGINEER Work Phone: [facility] [place] 07-29-2023 19:57-0500 Body mass index (BMI) [Ratio] 38.5 kg/m2 SENIOR QUALITY ASSURANCE ENGINEER-C Loan Dias SENIOR QUALITY ASSURANCE ENGINEER Work Phone: [facility] [place] 07-29-2023 19:57-0500 Body temperature 97.9 [degF] SENIOR QUALITY ASSURANCE ENGINEER-C Loan Dias SENIOR QUALITY ASSURANCE ENGINEER Work Phone: [facility] [place] 07-29-2023 19:57-0500 Body weight 92.53 kg SENIOR QUALITY ASSURANCE ENGINEER-C Loan Dias SENIOR QUALITY ASSURANCE ENGINEER Work Phone: [facility] [place] 07-29-2023 19:57-0500 Diastolic blood pressure 90 mm[Hg] SENIOR QUALITY ASSURANCE ENGINEER-C Loan Dias SENIOR QUALITY ASSURANCE ENGINEER Work Phone: [facility] [place] 07-29-2023 19:57-0500 Heart rate 79 /min SENIOR QUALITY ASSURANCE ENGINEER-C Loan Dias SENIOR QUALITY ASSURANCE ENGINEER Work Phone: [facility] [place] 07-29-2023 19:57-0500 Respiratory rate 18 /min SENIOR QUALITY ASSURANCE ENGINEER-C Loan Dias SENIOR QUALITY ASSURANCE ENGINEER Work Phone: [facility] [place] 07-29-2023 19:57-0500 SaO2% (BldA) [Mass fraction] 98 % SENIOR QUALITY ASSURANCE ENGINEER-C Loan Dias SENIOR QUALITY ASSURANCE ENGINEER Work Phone: [facility] [place] 07-29-2023 19:57-0500 Systolic blood pressure 148 mm[Hg] SENIOR QUALITY ASSURANCE ENGINEER-C Loan Dias SENIOR QUALITY ASSURANCE ENGINEER Work Phone: [facility] [place] 05-27-2023 10:24-0400 Body mass index (BMI) [Ratio] 39.1 kg/m2 SENIOR QUALITY ASSURANCE ENGINEER-C Loan Dias SENIOR QUALITY ASSURANCE ENGINEER Work Phone: [facility] [place] 05-27-2023 10:24-0400 Body temperature 98.5 [degF] SENIOR QUALITY ASSURANCE ENGINEER-C Loan Galloson SENIOR QUALITY ASSURANCE ENGINEER Work Phone: [facility] [place] 05-27-2023 10:24-0400 Body weight 93.95 kg SENIOR QUALITY ASSURANCE ENGINEER-C Loan Dias SENIOR QUALITY ASSURANCE ENGINEER Work Phone: [facility] [place] 05-27-2023 10:24-0400 Diastolic blood pressure 85 mm[Hg] SENIOR QUALITY ASSURANCE ENGINEER-C Loan Galloson SENIOR QUALITY ASSURANCE ENGINEER Work Phone: [facility] [place] 05-27-2023 10:24-0400 Heart rate 72 /min SENIOR QUALITY ASSURANCE ENGINEER-C Loan Dias SENIOR QUALITY ASSURANCE ENGINEER Work Phone: [facility] [place] 05-27-2023 10:24-0400 Respiratory rate 18 /min SENIOR QUALITY ASSURANCE ENGINEER-C Loan Dias SENIOR QUALITY ASSURANCE ENGINEER Work Phone: [facility] [place] 05-27-2023 10:24-0400 SaO2% (BldA) [Mass fraction] 97 % SENIOR QUALITY ASSURANCE ENGINEER-C Loan Dias SENIOR QUALITY ASSURANCE ENGINEER Work Phone: [facility] [place] 05-27-2023 10:24-0400 Systolic blood pressure 129 mm[Hg] SENIOR QUALITY ASSURANCE ENGINEER-C Loan Galloson SENIOR QUALITY ASSURANCE ENGINEER Work Phone: [facility] [place] 05-06-2023 08:58-0400 Body mass index (BMI) [Ratio] 38.5 kg/m2 SENIOR QUALITY ASSURANCE ENGINEER-C Loan Dias SENIOR QUALITY ASSURANCE ENGINEER Work Phone: [facility] [place] 05-06-2023 08:58-0400 Body temperature 97.4 [degF] SENIOR QUALITY ASSURANCE ENGINEER-C Loan Galloson SENIOR QUALITY ASSURANCE ENGINEER Work Phone: [facility] [place] 05-06-2023 08:58-0400 Body weight 92.61 kg SENIOR QUALITY ASSURANCE ENGINEER-C Loan Dias SENIOR QUALITY ASSURANCE ENGINEER Work Phone: [facility] [place] 05-06-2023 08:58-0400 Diastolic blood pressure 89 mm[Hg] SENIOR QUALITY ASSURANCE ENGINEER-C Loan Dias SENIOR QUALITY ASSURANCE ENGINEER Work Phone: [facility] [place] 05-06-2023 08:58-0400 Heart rate 72 /min SENIOR QUALITY ASSURANCE ENGINEER-C Loan Dias SENIOR QUALITY ASSURANCE ENGINEER Work Phone: [facility] [place] 05-06-2023 08:58-0400 Respiratory rate 18 /min SENIOR QUALITY ASSURANCE ENGINEER-C Loan Dias SENIOR QUALITY ASSURANCE ENGINEER Work Phone: [facility] [place] 05-06-2023 08:58-0400 SaO2% (BldA) [Mass fraction] 98 % SENIOR QUALITY ASSURANCE ENGINEER-C Loan Dias SENIOR QUALITY ASSURANCE ENGINEER Work Phone: [facility] [place] 05-06-2023 08:58-0400 Systolic blood pressure 133 mm[Hg] SENIOR QUALITY ASSURANCE ENGINEER-C Loan Dias SENIOR QUALITY ASSURANCE ENGINEER Work Phone: [facility] [place] 03-06-2023 10:07-0400 Body height 154.94 cm SENIOR QUALITY ASSURANCE ENGINEER-C Loan Dias SENIOR QUALITY ASSURANCE ENGINEER Work Phone: [facility] [place] 03-06-2023 10:07-0400 Body mass index (BMI) [Ratio] 38.4 kg/m2 SENIOR QUALITY ASSURANCE ENGINEER-C Loan Galloson SENIOR QUALITY ASSURANCE ENGINEER Work Phone: [facility] [place] 03-06-2023 10:07-0400 Body weight 92.19 kg SENIOR QUALITY ASSURANCE ENGINEER-C Loan Galloson SENIOR QUALITY ASSURANCE ENGINEER Work Phone: [facility] [place] 03-06-2023 10:07-0400 Diastolic blood pressure 91 mm[Hg] SENIOR QUALITY ASSURANCE ENGINEER-C Loan Dias SENIOR QUALITY ASSURANCE ENGINEER Work Phone: [facility] [place] 03-06-2023 10:07-0400 Heart rate 89 /min SENIOR QUALITY ASSURANCE ENGINEER-C Loan Dias SENIOR QUALITY ASSURANCE ENGINEER Work Phone: [facility] [place] 03-06-2023 10:07-0400 Respiratory rate 18 /min SENIOR QUALITY ASSURANCE ENGINEER-C Loan Dias SENIOR QUALITY ASSURANCE ENGINEER Work Phone: [facility] [place] 03-06-2023 10:07-0400 SaO2% (BldA) [Mass fraction] 98 % SENIOR QUALITY ASSURANCE ENGINEER-C Loan Dias SENIOR QUALITY ASSURANCE ENGINEER Work Phone: [facility] [place] 03-06-2023 10:07-0400 Systolic blood pressure 159 mm[Hg] SENIOR QUALITY ASSURANCE ENGINEER-C Loan Dias SENIOR QUALITY ASSURANCE ENGINEER Work Phone: [facility] [place] 02-28-2023 09:32-0400 Body height 154.94 cm SENIOR QUALITY ASSURANCE ENGINEER-C Loan Dias SENIOR QUALITY ASSURANCE ENGINEER Work Phone: [facility] [place] 02-28-2023 09:32-0400 Body mass index (BMI) [Ratio] 38.7 kg/m2 SENIOR QUALITY ASSURANCE ENGINEER-C Loan Dias SENIOR QUALITY ASSURANCE ENGINEER Work Phone: [phone] [place] [address] 02-28-2023 09:32-0400 Body temperature 97.4 [degF] SENIOR QUALITY ASSURANCE ENGINEER-C Loan Dias SENIOR QUALITY ASSURANCE ENGINEER Work Phone: [phone] [place] [address] 02-28-2023 09:32-0400 Body weight 92.98 kg SENIOR QUALITY ASSURANCE ENGINEER-C Loan Dias SENIOR QUALITY ASSURANCE ENGINEER Work Phone: [phone] [place] [address] 02-28-2023 09:32-0400 Diastolic blood pressure 81 mm[Hg] SENIOR QUALITY ASSURANCE ENGINEER-C Loan Dias SENIOR QUALITY ASSURANCE ENGINEER Work Phone: [facility] [place] 02-28-2023 09:32-0400 Heart rate 84 /min SENIOR QUALITY ASSURANCE ENGINEER-C Loan Dias SENIOR QUALITY ASSURANCE ENGINEER Work Phone: [facility] [place] 02-28-2023 09:32-0400 Respiratory rate 16 /min SENIOR QUALITY ASSURANCE ENGINEER-C Loan Dias SENIOR QUALITY ASSURANCE ENGINEER Work Phone: [facility] [place] 02-28-2023 09:32-0400 SaO2% (BldA) [Mass fraction] 98 % SENIOR QUALITY ASSURANCE ENGINEER-C Loan Dias SENIOR QUALITY ASSURANCE ENGINEER Work Phone: [facility] [place] 02-28-2023 09:32-0400 Systolic blood pressure 124 mm[Hg] SENIOR QUALITY ASSURANCE ENGINEER-C Loan Dias SENIOR QUALITY ASSURANCE ENGINEER Work Phone: [phone] [place] [address] 02-20-2023 09:32-0400 Body mass index (BMI) [Ratio] 38.7 kg/m2 SENIOR QUALITY ASSURANCE ENGINEER-C Loan Dias SENIOR QUALITY ASSURANCE ENGINEER Work Phone: [facility] [place] 02-20-2023 09:32-0400 Body temperature 98.1 [degF] SENIOR QUALITY ASSURANCE ENGINEER-C Loan Dias SENIOR QUALITY ASSURANCE ENGINEER Work Phone: [facility] [place] 02-20-2023 09:32-0400 Body weight 93.04 kg SENIOR QUALITY ASSURANCE ENGINEER-C Loan Dias SENIOR QUALITY ASSURANCE ENGINEER Work Phone: [facility] [place] 02-20-2023 09:32-0400 Diastolic blood pressure 88 mm[Hg] SENIOR QUALITY ASSURANCE ENGINEER-C Loan Dias SENIOR QUALITY ASSURANCE ENGINEER Work Phone: [facility] [place] 02-20-2023 09:32-0400 Heart rate 91 /min SENIOR QUALITY ASSURANCE ENGINEER-C Loan Dias SENIOR QUALITY ASSURANCE ENGINEER Work Phone: [facility] [place] 02-20-2023 09:32-0400 Respiratory rate 16 /min SENIOR QUALITY ASSURANCE ENGINEER-C Loan Dias SENIOR QUALITY ASSURANCE ENGINEER Work Phone: [facility] [place] 02-20-2023 09:32-0400 SaO2% (BldA) [Mass fraction] 98 % SENIOR QUALITY ASSURANCE ENGINEER-C Loan Dias SENIOR QUALITY ASSURANCE ENGINEER Work Phone: [facility] [place] 02-20-2023 09:32-0400 Systolic blood pressure 141 mm[Hg] SENIOR QUALITY ASSURANCE ENGINEER-C Loan Dias SENIOR QUALITY ASSURANCE ENGINEER Work Phone: [facility] [place] 01-28-2023 10:50-0400 Body mass index (BMI) [Ratio] 38.6 kg/m2 SENIOR QUALITY ASSURANCE ENGINEER-C Loan Dias SENIOR QUALITY ASSURANCE ENGINEER Work Phone: [facility] [place] 01-28-2023 10:50-0400 Body temperature 97.5 [degF] SENIOR QUALITY ASSURANCE ENGINEER-C Loan Galloson SENIOR QUALITY ASSURANCE ENGINEER Work Phone: [facility] [place] 01-28-2023 10:50-0400 Body weight 92.7 kg SENIOR QUALITY ASSURANCE ENGINEER-C Loan Dias SENIOR QUALITY ASSURANCE ENGINEER Work Phone: [facility] [place] 01-28-2023 10:50-0400 Diastolic blood pressure 85 mm[Hg] SENIOR QUALITY ASSURANCE ENGINEER-C Loan Dias SENIOR QUALITY ASSURANCE ENGINEER Work Phone: [facility] [place] 01-28-2023 10:50-0400 Heart rate 69 /min SENIOR QUALITY ASSURANCE ENGINEER-C Loan Dias SENIOR QUALITY ASSURANCE ENGINEER Work Phone: [facility] [place] 01-28-2023 10:50-0400 Respiratory rate 18 /min SENIOR QUALITY ASSURANCE ENGINEER-C Loan Dias SENIOR QUALITY ASSURANCE ENGINEER Work Phone: [facility] [place] 01-28-2023 10:50-0400 SaO2% (BldA) [Mass fraction] 99 % SENIOR QUALITY ASSURANCE ENGINEER-C Loan Dias SENIOR QUALITY ASSURANCE ENGINEER Work Phone: [facility] [place] 01-28-2023 10:50-0400 Systolic blood pressure 148 mm[Hg] SENIOR QUALITY ASSURANCE ENGINEER-C Loan Dias SENIOR QUALITY ASSURANCE ENGINEER Work Phone: [phone] [place] [address] 12-28-2022 11:50-0400 Body height 154.94 cm SENIOR QUALITY ASSURANCE ENGINEER-C Loan Dias SENIOR QUALITY ASSURANCE ENGINEER Work Phone: [phone] [place] [address] 12-28-2022 11:50-0400 Diastolic blood pressure 90 mm[Hg] SENIOR QUALITY ASSURANCE ENGINEER-C Loan Dias SENIOR QUALITY ASSURANCE ENGINEER Work Phone: [facility] [place] 12-28-2022 11:50-0400 Systolic blood pressure 130 mm[Hg] SENIOR QUALITY ASSURANCE ENGINEER-C Loan Dias SENIOR QUALITY ASSURANCE ENGINEER Work Phone: [facility] [place] 12-28-2022 09:41-0400 Body temperature 98.5 [degF] SENIOR QUALITY ASSURANCE ENGINEER-C Loan Dias SENIOR QUALITY ASSURANCE ENGINEER Work Phone: [facility] [place] 12-28-2022 09:41-0400 Body weight 92.07 kg SENIOR QUALITY ASSURANCE ENGINEER-C Loan Dias SENIOR QUALITY ASSURANCE ENGINEER Work Phone: [facility] [place] 12-28-2022 09:41-0400 Heart rate 90 /min SENIOR QUALITY ASSURANCE ENGINEER-C Loan Dias SENIOR QUALITY ASSURANCE ENGINEER Work Phone: [facility] [place] 12-28-2022 09:41-0400 Respiratory rate 18 /min SENIOR QUALITY ASSURANCE ENGINEER-C Loan Dias SENIOR QUALITY ASSURANCE ENGINEER Work Phone: [facility] [place] 12-28-2022 09:41-0400 SaO2% (BldA) [Mass fraction] 100 % SENIOR QUALITY ASSURANCE ENGINEER-C Loan Dias SENIOR QUALITY ASSURANCE ENGINEER Work Phone: [facility] [place] 11-05-2022 13:04-0400 Body mass index (BMI) [Ratio] 38 kg/m2 SENIOR QUALITY ASSURANCE ENGINEER-C Loan Dias SENIOR QUALITY ASSURANCE ENGINEER Work Phone: [facility] [place] 11-05-2022 13:04-0400 Body weight 91.17 kg SENIOR QUALITY ASSURANCE ENGINEER-C Loan Dias SENIOR QUALITY ASSURANCE ENGINEER Work Phone: [facility] [place] 11-05-2022 13:04-0400 Diastolic blood pressure 83 mm[Hg] SENIOR QUALITY ASSURANCE ENGINEER-C Loan Dias SENIOR QUALITY ASSURANCE ENGINEER Work Phone: [facility] [place] 11-05-2022 13:04-0400 Respiratory rate 16 /min SENIOR QUALITY ASSURANCE ENGINEER-C Loan Dias SENIOR QUALITY ASSURANCE ENGINEER Work Phone: [facility] [place] 11-05-2022 13:04-0400 SaO2% (BldA) [Mass fraction] 98 % SENIOR QUALITY ASSURANCE ENGINEER-C Loan Dias SENIOR QUALITY ASSURANCE ENGINEER Work Phone: [facility] [place] 11-05-2022 13:04-0400 Systolic blood pressure 128 mm[Hg] SENIOR QUALITY ASSURANCE ENGINEER-C Loan Dias SENIOR QUALITY ASSURANCE ENGINEER Work Phone: [facility] [place] 11-01-2022 10:01-0400 Body height 154.94 cm SENIOR QUALITY ASSURANCE ENGINEER-C Loan Dias SENIOR QUALITY ASSURANCE ENGINEER Work Phone: [facility] [place] 11-01-2022 10:01-0400 Body mass index (BMI) [Ratio] 35.9 kg/m2 SENIOR QUALITY ASSURANCE ENGINEER-C Loan Dias SENIOR QUALITY ASSURANCE ENGINEER Work Phone: [facility] [place] 11-01-2022 10:01-0400 Body temperature 97.6 [degF] SENIOR QUALITY ASSURANCE ENGINEER-C Loan Dias SENIOR QUALITY ASSURANCE ENGINEER Work Phone: [facility] [place] 11-01-2022 10:01-0400 Body weight 86.18 kg SENIOR QUALITY ASSURANCE ENGINEER-C Loan Dias SENIOR QUALITY ASSURANCE ENGINEER Work Phone: [facility] [place] 11-01-2022 10:01-0400 Diastolic blood pressure 84 mm[Hg] SENIOR QUALITY ASSURANCE ENGINEER-C Loan Dias SENIOR QUALITY ASSURANCE ENGINEER Work Phone: [facility] [place] 11-01-2022 10:01-0400 Heart rate 81 /min SENIOR QUALITY ASSURANCE ENGINEER-C Loan Dias SENIOR QUALITY ASSURANCE ENGINEER Work Phone: [facility] [place] 11-01-2022 10:01-0400 Respiratory rate 16 /min SENIOR QUALITY ASSURANCE ENGINEER-C Loan Dias SENIOR QUALITY ASSURANCE ENGINEER Work Phone: [facility] [place] 11-01-2022 10:01-0400 SaO2% (BldA) [Mass fraction] 97 % SENIOR QUALITY ASSURANCE ENGINEER-C Loan Dias SENIOR QUALITY ASSURANCE ENGINEER Work Phone: [facility] [place] 11-01-2022 10:01-0400 Systolic blood pressure 133 mm[Hg] SENIOR QUALITY ASSURANCE ENGINEER-C Loan Dias SENIOR QUALITY ASSURANCE ENGINEER Work Phone: [facility] [place] 07-25-2022 10:33-0500 Body mass index (BMI) [Ratio] 37 kg/m2 SENIOR QUALITY ASSURANCE ENGINEER-C Loan Dias SENIOR QUALITY ASSURANCE ENGINEER Work Phone: [facility] [place] 07-25-2022 10:33-0500 Body temperature 98.3 [degF] SENIOR QUALITY ASSURANCE ENGINEER-C Loan Dias SENIOR QUALITY ASSURANCE ENGINEER Work Phone: [facility] [place] 07-25-2022 10:33-0500 Body weight 88.9 kg SENIOR QUALITY ASSURANCE ENGINEER-C Loan Dias SENIOR QUALITY ASSURANCE ENGINEER Work Phone: [facility] [place] 07-25-2022 10:33-0500 Diastolic blood pressure 82 mm[Hg] SENIOR QUALITY ASSURANCE ENGINEER-C Loan Dais SENIOR QUALITY ASSURANCE ENGINEER Work Phone: [facility] [place] 07-25-2022 10:33-0500 Heart rate 79 /min SENIOR QUALITY ASSURANCE ENGINEER-C Loan Galloson SENIOR QUALITY ASSURANCE ENGINEER Work Phone: [facility] [place] 07-25-2022 10:33-0500 Respiratory rate 16 /min SENIOR QUALITY ASSURANCE ENGINEER-C Loan Dias SENIOR QUALITY ASSURANCE ENGINEER Work Phone: [facility] [place] 07-25-2022 10:33-0500 SaO2% (BldA) [Mass fraction] 99 % SENIOR QUALITY ASSURANCE ENGINEER-C Loan Dias SENIOR QUALITY ASSURANCE ENGINEER Work Phone: [facility] [place] 07-25-2022 10:33-0500 Systolic blood pressure 122 mm[Hg] SENIOR QUALITY ASSURANCE ENGINEER-C Loan Dias SENIOR QUALITY ASSURANCE ENGINEER Work Phone: [facility] [place] 05-21-2022 09:36-0400 Body temperature 97.6 [degF] SENIOR QUALITY ASSURANCE ENGINEER-C Loan Dias SENIOR QUALITY ASSURANCE ENGINEER Work Phone: [facility] [place] Work Phone: 05-21-2022 09:36-0400 Diastolic blood pressure 83 mm[Hg] SENIOR QUALITY ASSURANCE ENGINEER-C Loan Dias SENIOR QUALITY ASSURANCE ENGINEER Work Phone: [facility] [place] Work Phone: 05-21-2022 09:36-0400 Heart rate 69 /min SENIOR QUALITY ASSURANCE ENGINEER-C Loan Dias SENIOR QUALITY ASSURANCE ENGINEER Work Phone: [facility] [place] Work Phone: 05-21-2022 09:36-0400 Respiratory rate 16 /min SENIOR QUALITY ASSURANCE ENGINEER-C Loan Dias SENIOR QUALITY ASSURANCE ENGINEER Work Phone: [facility] [place] Work Phone: 05-21-2022 09:36-0400 SaO2% (BldA) [Mass fraction] 100 % SENIOR QUALITY ASSURANCE ENGINEER-C Loan Dias SENIOR QUALITY ASSURANCE ENGINEER Work Phone: [facility] [place] Work Phone: 05-21-2022 09:36-0400 Systolic blood pressure 130 mm[Hg] SENIOR QUALITY ASSURANCE ENGINEER-C Loan Dias SENIOR QUALITY ASSURANCE ENGINEER Work Phone: [facility] [place] Work Phone: 05-21-2022 07:49-0400 Body height 154.94 cm SENIOR QUALITY ASSURANCE ENGINEER-C Loan Dias SENIOR QUALITY ASSURANCE ENGINEER Work Phone: [facility] [place] Work Phone: 05-21-2022 07:49-0400 Body mass index (BMI) [Ratio] 35.6 kg/m2 SENIOR QUALITY ASSURANCE ENGINEER-C Loan Dias SENIOR QUALITY ASSURANCE ENGINEER Work Phone: [facility] [place] Work Phone: 05-21-2022 07:49-0400 Body weight 85.54 kg SENIOR QUALITY ASSURANCE ENGINEER-C Loan Dias SENIOR QUALITY ASSURANCE ENGINEER Work Phone: [facility] [place] Work Phone: 04-25-2022 11:47-0400 Body mass index (BMI) [Ratio] 34.9 kg/m2 SENIOR QUALITY ASSURANCE ENGINEER-C Loan Dias SENIOR QUALITY ASSURANCE ENGINEER Work Phone: [facility] [place] Work Phone: 04-25-2022 11:47-0400 Body weight 83.91 kg SENIOR QUALITY ASSURANCE ENGINEER-C Loan Dias SENIOR QUALITY ASSURANCE ENGINEER Work Phone: [facility] [place] Work Phone: 04-25-2022 08:30-0400 Body mass index (BMI) [Ratio] 35.6 kg/m2 SENIOR QUALITY ASSURANCE ENGINEER-C Loan Dias SENIOR QUALITY ASSURANCE ENGINEER Work Phone: [facility] [place] Work Phone: 04-25-2022 08:30-0400 Body temperature 98 [degF] SENIOR QUALITY ASSURANCE ENGINEER-C Loan Dias SENIOR QUALITY ASSURANCE ENGINEER Work Phone: [facility] [place] Work Phone: 04-25-2022 08:30-0400 Body weight 85.72 kg SENIOR QUALITY ASSURANCE ENGINEER-C Loan Dias SENIOR QUALITY ASSURANCE ENGINEER Work Phone: [facility] [place] Work Phone: 04-25-2022 08:30-0400 Diastolic blood pressure 93 mm[Hg] SENIOR QUALITY ASSURANCE ENGINEER-C Loan Dias SENIOR QUALITY ASSURANCE ENGINEER Work Phone: [facility] [place] Work Phone: 04-25-2022 08:30-0400 Heart rate 71 /min SENIOR QUALITY ASSURANCE ENGINEER-C Loan Dias SENIOR QUALITY ASSURANCE ENGINEER Work Phone: [facility] [place] Work Phone: 04-25-2022 08:30-0400 Respiratory rate 18 /min SENIOR QUALITY ASSURANCE ENGINEER-C Loan Dias SENIOR QUALITY ASSURANCE ENGINEER Work Phone: [facility] [place] Work Phone: 04-25-2022 08:30-0400 SaO2% (BldA) [Mass fraction] 97 % SENIOR QUALITY ASSURANCE ENGINEER-C Loan Dias SENIOR QUALITY ASSURANCE ENGINEER Work Phone: [facility] [place] Work Phone: 04-25-2022 08:30-0400 Systolic blood pressure 146 mm[Hg] SENIOR QUALITY ASSURANCE ENGINEER-C Loan Dias SENIOR QUALITY ASSURANCE ENGINEER Work Phone: [facility] [place] Work Phone: 02-05-2022 08:38-0400 Body mass index (BMI) [Ratio] 36.3 kg/m2 SENIOR QUALITY ASSURANCE ENGINEER-C Loan Dias SENIOR QUALITY ASSURANCE ENGINEER Work Phone: [facility] [place] Work Phone: 02-05-2022 08:38-0400 Body temperature 97.7 [degF] SENIOR QUALITY ASSURANCE ENGINEER-C Loan Dias SENIOR QUALITY ASSURANCE ENGINEER Work Phone: [facility] [place] Work Phone: 02-05-2022 08:38-0400 Body weight 87.17 kg SENIOR QUALITY ASSURANCE ENGINEER-C Loan Arun SENIOR QUALITY ASSURANCE ENGINEER Work Phone: [facility] [place] Work Phone: 02-05-2022 08:38-0400 Diastolic blood pressure 86 mm[Hg] SENIOR QUALITY ASSURANCE ENGINEER-C Loan Dias SENIOR QUALITY ASSURANCE ENGINEER Work Phone: [facility] [place] Work Phone: 02-05-2022 08:38-0400 Heart rate 70 /min SENIOR QUALITY ASSURANCE ENGINEER-C Loan Dias SENIOR QUALITY ASSURANCE ENGINEER Work Phone: [facility] [place] Work Phone: 02-05-2022 08:38-0400 Respiratory rate 16 /min SENIOR QUALITY ASSURANCE ENGINEER-C Loan Dias SENIOR QUALITY ASSURANCE ENGINEER Work Phone: [facility] [place] Work Phone: 02-05-2022 08:38-0400 SaO2% (BldA) [Mass fraction] 100 % SENIOR QUALITY ASSURANCE ENGINEER-C Loan Dias SENIOR QUALITY ASSURANCE ENGINEER Work Phone: [facility] [place] Work Phone: 02-05-2022 08:38-0400 Systolic blood pressure 138 mm[Hg] SENIOR QUALITY ASSURANCE ENGINEER-C Loan Dias SENIOR QUALITY ASSURANCE ENGINEER Work Phone: [facility] [place] Work Phone: 01-29-2022 08:42-0400 Body mass index (BMI) [Ratio] 36.1 kg/m2 SENIOR QUALITY ASSURANCE ENGINEER-C Loan Dias SENIOR QUALITY ASSURANCE ENGINEER Work Phone: [facility] [place] Work Phone: 01-29-2022 08:42-0400 Body weight 86.63 kg SENIOR QUALITY ASSURANCE ENGINEER-C Loan Dias SENIOR QUALITY ASSURANCE ENGINEER Work Phone: [facility] [place] Work Phone: 01-25-2022 19:55-0400 Body mass index (BMI) [Ratio] 35.9 kg/m2 SENIOR QUALITY ASSURANCE ENGINEER-C Loan Dias SENIOR QUALITY ASSURANCE ENGINEER Work Phone: [facility] [place] Work Phone: 01-25-2022 19:55-0400 Body temperature 97.7 [degF] SENIOR QUALITY ASSURANCE ENGINEER-C Loan Dias SENIOR QUALITY ASSURANCE ENGINEER Work Phone: [facility] [place] Work Phone: 01-25-2022 19:55-0400 Body weight 86.18 kg SENIOR QUALITY ASSURANCE ENGINEER-C Loan Dias SENIOR QUALITY ASSURANCE ENGINEER Work Phone: [facility] [place] Work Phone: 01-25-2022 19:55-0400 Diastolic blood pressure 70 mm[Hg] SENIOR QUALITY ASSURANCE ENGINEER-C Loan Dias SENIOR QUALITY ASSURANCE ENGINEER Work Phone: [facility] [place] Work Phone: 01-25-2022 19:55-0400 Heart rate 118 /min SENIOR QUALITY ASSURANCE ENGINEER-C Loan Dias SENIOR QUALITY ASSURANCE ENGINEER Work Phone: [facility] [place] Work Phone: 01-25-2022 19:55-0400 Respiratory rate 18 /min SENIOR QUALITY ASSURANCE ENGINEER-C Loan Dias SENIOR QUALITY ASSURANCE ENGINEER Work Phone: [facility] [place] Work Phone: 01-25-2022 19:55-0400 SaO2% (BldA) [Mass fraction] 99 % SENIOR QUALITY ASSURANCE ENGINEER-C Loan Arun SENIOR QUALITY ASSURANCE ENGINEER Work Phone: [facility] [place] Work Phone: 01-25-2022 19:55-0400 Systolic blood pressure 120 mm[Hg] SENIOR QUALITY ASSURANCE ENGINEER-C Loan Dias SENIOR QUALITY ASSURANCE ENGINEER Work Phone: [facility] [place] Work Phone: 01-24-2022 12:54-0400 Body mass index (BMI) [Ratio] 35.9 kg/m2 SENIOR QUALITY ASSURANCE ENGINEER-C Loan Dias SENIOR QUALITY ASSURANCE ENGINEER Work Phone: [facility] [place] Work Phone: 01-24-2022 12:54-0400 Body temperature 97.8 [degF] SENIOR QUALITY ASSURANCE ENGINEER-C Loan Dias SENIOR QUALITY ASSURANCE ENGINEER Work Phone: [facility] [place] Work Phone: 01-24-2022 12:54-0400 Body weight 86.18 kg SENIOR QUALITY ASSURANCE ENGINEER-C Loan Dias SENIOR QUALITY ASSURANCE ENGINEER Work Phone: [facility] [place] Work Phone: 01-24-2022 12:54-0400 Diastolic blood pressure 86 mm[Hg] SENIOR QUALITY ASSURANCE ENGINEER-C Loan Dias SENIOR QUALITY ASSURANCE ENGINEER Work Phone: [facility] [place] Work Phone: 01-24-2022 12:54-0400 Heart rate 81 /min SENIOR QUALITY ASSURANCE ENGINEER-C Loan Dias SENIOR QUALITY ASSURANCE ENGINEER Work Phone: [facility] [place] Work Phone: 01-24-2022 12:54-0400 Respiratory rate 15 /min SENIOR QUALITY ASSURANCE ENGINEER-C Loan Dias SENIOR QUALITY ASSURANCE ENGINEER Work Phone: [facility] [place] Work Phone: 01-24-2022 12:54-0400 SaO2% (BldA) [Mass fraction] 96 % SENIOR QUALITY ASSURANCE ENGINEER-C Loan Dias SENIOR QUALITY ASSURANCE ENGINEER Work Phone: [facility] [place] Work Phone: 01-24-2022 12:54-0400 Systolic blood pressure 122 mm[Hg] SENIOR QUALITY ASSURANCE ENGINEER-C Loan Arun SENIOR QUALITY ASSURANCE ENGINEER Work Phone: [facility] [place] Work Phone: 01-23-2022 14:42-0400 Body mass index (BMI) [Ratio] 36.6 kg/m2 SENIOR QUALITY ASSURANCE ENGINEER-C Loan Dias SENIOR QUALITY ASSURANCE ENGINEER Work Phone: [facility] [place] Work Phone: 01-23-2022 14:42-0400 Body temperature 97.7 [degF] SENIOR QUALITY ASSURANCE ENGINEER-C Loan Dias SENIOR QUALITY ASSURANCE ENGINEER Work Phone: [facility] [place] Work Phone: 01-23-2022 14:42-0400 Body weight 87.99 kg SENIOR QUALITY ASSURANCE ENGINEER-C Loan Dias SENIOR QUALITY ASSURANCE ENGINEER Work Phone: [facility] [place] Work Phone: 01-23-2022 14:42-0400 Diastolic blood pressure 84 mm[Hg] SENIOR QUALITY ASSURANCE ENGINEER-C Loan Dias SENIOR QUALITY ASSURANCE ENGINEER Work Phone: [facility] [place] Work Phone: 01-23-2022 14:42-0400 Heart rate 90 /min SENIOR QUALITY ASSURANCE ENGINEER-C Loan Dias SENIOR QUALITY ASSURANCE ENGINEER Work Phone: [facility] [place] Work Phone: 01-23-2022 14:42-0400 Respiratory rate 18 /min SENIOR QUALITY ASSURANCE ENGINEER-C Loan Dias SENIOR QUALITY ASSURANCE ENGINEER Work Phone: [facility] [place] Work Phone: 01-23-2022 14:42-0400 SaO2% (BldA) [Mass fraction] 97 % SENIOR QUALITY ASSURANCE ENGINEER-C Loan Dias SENIOR QUALITY ASSURANCE ENGINEER Work Phone: [facility] [place] Work Phone: 01-23-2022 14:42-0400 Systolic blood pressure 160 mm[Hg] SENIOR QUALITY ASSURANCE ENGINEER-C Loan Dias SENIOR QUALITY ASSURANCE ENGINEER Work Phone: [facility] [place] Work Phone: 01-21-2022 14:33-0400 Diastolic blood pressure 86 mm[Hg] SENIOR QUALITY ASSURANCE ENGINEER-C Loan Arun SENIOR QUALITY ASSURANCE ENGINEER Work Phone: [facility] [place] Work Phone: 01-21-2022 14:33-0400 Systolic blood pressure 168 mm[Hg] SENIOR QUALITY ASSURANCE ENGINEER-C Loan Dias SENIOR QUALITY ASSURANCE ENGINEER Work Phone: [facility] [place] Work Phone: 01-21-2022 13:00-0400 Heart rate 74 /min SENIOR QUALITY ASSURANCE ENGINEER-C Loan Dias SENIOR QUALITY ASSURANCE ENGINEER Work Phone: [facility] [place] Work Phone: 01-21-2022 13:00-0400 Respiratory rate 21 /min SENIOR QUALITY ASSURANCE ENGINEER-C Loan Dias SENIOR QUALITY ASSURANCE ENGINEER Work Phone: [facility] [place] Work Phone: 01-21-2022 13:00-0400 SaO2% (BldA) [Mass fraction] 98 % SENIOR QUALITY ASSURANCE ENGINEER-C Loan Dias SENIOR QUALITY ASSURANCE ENGINEER Work Phone: [facility] [place] Work Phone: 01-21-2022 10:47-0400 Body height 154.94 cm SENIOR QUALITY ASSURANCE ENGINEER-C Loan Dias SENIOR QUALITY ASSURANCE ENGINEER Work Phone: [facility] [place] Work Phone: 01-21-2022 10:47-0400 Body mass index (BMI) [Ratio] 34.9 kg/m2 SENIOR QUALITY ASSURANCE ENGINEER-C Loan Dias SENIOR QUALITY ASSURANCE ENGINEER Work Phone: [facility] [place] Work Phone: 01-21-2022 10:47-0400 Body temperature 97.6 [degF] SENIOR QUALITY ASSURANCE ENGINEER-C Loan Dias SENIOR QUALITY ASSURANCE ENGINEER Work Phone: [facility] [place] Work Phone: 01-21-2022 10:47-0400 Body weight 83.91 kg SENIOR QUALITY ASSURANCE ENGINEER-C Loan Arun SENIOR QUALITY ASSURANCE ENGINEER Work Phone: [facility] [place] Work Phone: 01-12-2022 08:25-0400 Body mass index (BMI) [Ratio] 36.2 kg/m2 SENIOR QUALITY ASSURANCE ENGINEER-C Loan Arun SENIOR QUALITY ASSURANCE ENGINEER Work Phone: [facility] [place] Work Phone: 01-12-2022 08:25-0400 Body weight 87.08 kg SENIOR QUALITY ASSURANCE ENGINEER-C Loan Dias SENIOR QUALITY ASSURANCE ENGINEER Work Phone: [facility] [place] Work Phone: 01-12-2022 08:25-0400 Diastolic blood pressure 86 mm[Hg] SENIOR QUALITY ASSURANCE ENGINEER-C Loan Arun SENIOR QUALITY ASSURANCE ENGINEER Work Phone: [facility] [place] Work Phone: 01-12-2022 08:25-0400 Heart rate 98 /min SENIOR QUALITY ASSURANCE ENGINEER-C Loan Dias SENIOR QUALITY ASSURANCE ENGINEER Work Phone: [facility] [place] Work Phone: 01-12-2022 08:25-0400 Respiratory rate 16 /min SENIOR QUALITY ASSURANCE ENGINEER-C Loan Dias SENIOR QUALITY ASSURANCE ENGINEER Work Phone: [facility] [place] Work Phone: 01-12-2022 08:25-0400 SaO2% (BldA) [Mass fraction] 99 % SENIOR QUALITY ASSURANCE ENGINEER-C Loan Dias SENIOR QUALITY ASSURANCE ENGINEER Work Phone: [facility] [place] Work Phone: 01-12-2022 08:25-0400 Systolic blood pressure 125 mm[Hg] SENIOR QUALITY ASSURANCE ENGINEER-C Loan Dias SENIOR QUALITY ASSURANCE ENGINEER Work Phone: [facility] [place] Work Phone: 01-01-2022 16:02-0400 Body mass index (BMI) [Ratio] 36.4 kg/m2 SENIOR QUALITY ASSURANCE ENGINEER-C Loan Dias SENIOR QUALITY ASSURANCE ENGINEER Work Phone: [facility] [place] Work Phone: 01-01-2022 16:02-0400 Body temperature 97.7 [degF] SENIOR QUALITY ASSURANCE ENGINEER-C Loan Dias SENIOR QUALITY ASSURANCE ENGINEER Work Phone: [facility] [place] Work Phone: 01-01-2022 16:02-0400 Body weight 87.54 kg SENIOR QUALITY ASSURANCE ENGINEER-C Loan Dias SENIOR QUALITY ASSURANCE ENGINEER Work Phone: [facility] [place] Work Phone: 01-01-2022 16:02-0400 Diastolic blood pressure 60 mm[Hg] SENIOR QUALITY ASSURANCE ENGINEER-C Loan Arun SENIOR QUALITY ASSURANCE ENGINEER Work Phone: [facility] [place] Work Phone: 01-01-2022 16:02-0400 Heart rate 98 /min SENIOR QUALITY ASSURANCE ENGINEER-C Loan Dias SENIOR QUALITY ASSURANCE ENGINEER Work Phone: [facility] [place] Work Phone: 01-01-2022 16:02-0400 Respiratory rate 18 /min SENIOR QUALITY ASSURANCE ENGINEER-C Loan Dias SENIOR QUALITY ASSURANCE ENGINEER Work Phone: [facility] [place] Work Phone: 01-01-2022 16:02-0400 SaO2% (BldA) [Mass fraction] 97 % SENIOR QUALITY ASSURANCE ENGINEER-C Loan Dias SENIOR QUALITY ASSURANCE ENGINEER Work Phone: [facility] [place] Work Phone: 01-01-2022 16:02-0400 Systolic blood pressure 130 mm[Hg] SENIOR QUALITY ASSURANCE ENGINEER-C Loan Dias SENIOR QUALITY ASSURANCE ENGINEER Work Phone: [facility] [place] Work Phone: 12-01-2021 08:40-0400 Body mass index (BMI) [Ratio] 36.1 kg/m2 SENIOR QUALITY ASSURANCE ENGINEER-C Loan Dias SENIOR QUALITY ASSURANCE ENGINEER Work Phone: [facility] [place] Work Phone: 12-01-2021 08:40-0400 Body temperature 97.6 [degF] SENIOR QUALITY ASSURANCE ENGINEER-C Loan Dias SENIOR QUALITY ASSURANCE ENGINEER Work Phone: [facility] [place] Work Phone: 12-01-2021 08:40-0400 Body weight 86.74 kg SENIOR QUALITY ASSURANCE ENGINEER-C Loan Dias SENIOR QUALITY ASSURANCE ENGINEER Work Phone: [facility] [place] Work Phone: 12-01-2021 08:40-0400 Diastolic blood pressure 88 mm[Hg] SENIOR QUALITY ASSURANCE ENGINEER-C Loan Dias SENIOR QUALITY ASSURANCE ENGINEER Work Phone: [facility] [place] Work Phone: 12-01-2021 08:40-0400 Heart rate 83 /min SENIOR QUALITY ASSURANCE ENGINEER-C Loan Dias SENIOR QUALITY ASSURANCE ENGINEER Work Phone: [facility] [place] Work Phone: 12-01-2021 08:40-0400 Respiratory rate 17 /min SENIOR QUALITY ASSURANCE ENGINEER-C Loan Dias SENIOR QUALITY ASSURANCE ENGINEER Work Phone: [facility] [place] Work Phone: 12-01-2021 08:40-0400 SaO2% (BldA) [Mass fraction] 98 % SENIOR QUALITY ASSURANCE ENGINEER-C Loan Dias SENIOR QUALITY ASSURANCE ENGINEER Work Phone: [facility] [place] Work Phone: 12-01-2021 08:40-0400 Systolic blood pressure 150 mm[Hg] SENIOR QUALITY ASSURANCE ENGINEER-C Loan Dias SENIOR QUALITY ASSURANCE ENGINEER Work Phone: [facility] [place] Work Phone: 10-26-2021 08:23-0500 Body temperature 98.1 [degF] SENIOR QUALITY ASSURANCE ENGINEER-C Loan iDas SENIOR QUALITY ASSURANCE ENGINEER Work Phone: [facility] [place] Work Phone: 10-26-2021 08:23-0500 Body weight 87.54 kg SENIOR QUALITY ASSURANCE ENGINEER-C Loan Dias SENIOR QUALITY ASSURANCE ENGINEER Work Phone: [facility] [place] Work Phone: 10-26-2021 08:23-0500 Diastolic blood pressure 85 mm[Hg] SENIOR QUALITY ASSURANCE ENGINEER-C Loan Dias SENIOR QUALITY ASSURANCE ENGINEER Work Phone: [facility] [place] Work Phone: 10-26-2021 08:23-0500 Heart rate 95 /min SENIOR QUALITY ASSURANCE ENGINEER-C Loan Dias SENIOR QUALITY ASSURANCE ENGINEER Work Phone: [facility] [facility] [place] Work Phone: 10-26-2021 08:23-0500 Respiratory rate 14 /min SENIOR QUALITY ASSURANCE ENGINEER-C Loan Dias SENIOR QUALITY ASSURANCE ENGINEER Work Phone: [facility] [place] Work Phone: 10-26-2021 08:23-0500 SaO2% (BldA) [Mass fraction] 99 % SENIOR QUALITY ASSURANCE ENGINEER-C Loan Dias SENIOR QUALITY ASSURANCE ENGINEER Work Phone: [facility] [place] Work Phone: 10-26-2021 08:23-0500 Systolic blood pressure 140 mm[Hg] SENIOR QUALITY ASSURANCE ENGINEER-C Loan Dias SENIOR QUALITY ASSURANCE ENGINEER Work Phone: [facility] [place] Work Phone: 10-18-2021 09:55-0500 Body mass index (BMI) [Ratio] 36.7 kg/m2 SENIOR QUALITY ASSURANCE ENGINEER-C Loan Dias SENIOR QUALITY ASSURANCE ENGINEER Work Phone: [facility] [place] Work Phone: 10-18-2021 09:55-0500 Body temperature 98.1 [degF] SENIOR QUALITY ASSURANCE ENGINEER-C Loan Dias SENIOR QUALITY ASSURANCE ENGINEER Work Phone: [facility] [place] Work Phone: 10-18-2021 09:55-0500 Body weight 88.11 kg SENIOR QUALITY ASSURANCE ENGINEER-C Loan Dias SENIOR QUALITY ASSURANCE ENGINEER Work Phone: [facility] [place] Work Phone: 10-18-2021 09:55-0500 Diastolic blood pressure 96 mm[Hg] SENIOR QUALITY ASSURANCE ENGINEER-C Loan Dias SENIOR QUALITY ASSURANCE ENGINEER Work Phone: [facility] [place] Work Phone: 10-18-2021 09:55-0500 Heart rate 80 /min SENIOR QUALITY ASSURANCE ENGINEER-C Loan Dias SENIOR QUALITY ASSURANCE ENGINEER Work Phone: [facility] [place] Work Phone: 10-18-2021 09:55-0500 Respiratory rate 16 /min SENIOR QUALITY ASSURANCE ENGINEER-C Loan Dias SENIOR QUALITY ASSURANCE ENGINEER Work Phone: [facility] [place] Work Phone: 10-18-2021 09:55-0500 SaO2% (BldA) [Mass fraction] 98 % SENIOR QUALITY ASSURANCE ENGINEER-C Loan Dias SENIOR QUALITY ASSURANCE ENGINEER Work Phone: [facility] [place] Work Phone: 10-18-2021 09:55-0500 Systolic blood pressure 144 mm[Hg] SENIOR QUALITY ASSURANCE ENGINEER-C Loan Dias SENIOR QUALITY ASSURANCE ENGINEER Work Phone: [facility] [place] Work Phone: 03-29-2021 13:14-0400 Diastolic blood pressure 91 mm[Hg] SENIOR QUALITY ASSURANCE ENGINEER-C Loan Dias SENIOR QUALITY ASSURANCE ENGINEER Work Phone: [facility] [place] 03-29-2021 13:14-0400 Heart rate 82 /min SENIOR QUALITY ASSURANCE ENGINEER-C Loan Dias SENIOR QUALITY ASSURANCE ENGINEER Work Phone: [facility] [place] 03-29-2021 13:14-0400 Respiratory rate 16 /min SENIOR QUALITY ASSURANCE ENGINEER-C Loan Dias SENIOR QUALITY ASSURANCE ENGINEER Work Phone: [facility] [place] 03-29-2021 13:14-0400 SaO2% (BldA) [Mass fraction] 94 % SENIOR QUALITY ASSURANCE ENGINEER-C Loan Dias SENIOR QUALITY ASSURANCE ENGINEER Work Phone: [facility] [place] 03-29-2021 13:14-0400 Systolic blood pressure 141 mm[Hg] SENIOR QUALITY ASSURANCE ENGINEER-C Loan Dias SENIOR QUALITY ASSURANCE ENGINEER Work Phone: [facility] [place] 03-29-2021 10:04-0400 Body mass index (BMI) [Ratio] 35.1 kg/m2 SENIOR QUALITY ASSURANCE ENGINEER-C Loan Galloson SENIOR QUALITY ASSURANCE ENGINEER Work Phone: [facility] [place] 03-29-2021 10:04-0400 Body weight 89.98 kg SENIOR QUALITY ASSURANCE ENGINEER-C Loan Galloson SENIOR QUALITY ASSURANCE ENGINEER Work Phone: [facility] [place] 03-08-2021 13:07-0400 Body temperature 96.8 [degF] SENIOR QUALITY ASSURANCE ENGINEER-C Loan Dias SENIOR QUALITY ASSURANCE ENGINEER Work Phone: [phone] [place] [address] Encounters Encounter Date Encounter Type Care Provider Facility Start: 05-11-2025 ambulatory Loan Arun SENIOR QUALITY ASSURANCE ENGINEER Faci lity:[facility] [place] Start: 04-24-2025 End: 04-24-2025 ambulatory Loan Dias SENIOR QUALITY ASSURANCE ENGINEER-C Work Phone: -[facility] Start: 04-24-2025 End: 04-24-[address] Nico Hook MD -[facility] Work Phone: Start: 04-08-2025 End: 04-08-2025 Patient encounter procedure Radha Tan SENIOR QUALITY ASSURANCE ENGINEER-C -[facility] Work Phone: Start: 04-08-2025 End: 04-08-2025 ambulatory Loan Arun SENIOR QUALITY ASSURANCE ENGINEER-C Work Phone: -[facility] Start: 04-07-2025 End: 04-07-2025 Patient encounter procedure Jarred Suh DPM Work Phone: [facility] Comment on above: Plantar fasciitis of right foot (Primary Dx); Equinus contracture of right ankle Start: 04-07-2025 End: 04-07-2025 ambulatory LOAN DIAS [facility] Start: 04-04-2025 End: 04-04-2025 Emergency department patient visit Loan Arun SENIOR QUALITY ASSURANCE ENGINEER-C Work Phone: -Emergency Department Work Phone: Start: 03-12-2025 End: 03-12-[address] Hossein Josue MD -[facility] Work Phone: Start: 03-12-2025 End: 03-12-2025 ambulatory Loan Dias SENIOR QUALITY ASSURANCE ENGINEER-C Work Phone: -[facility] Start: 03-10-2025 End: 03-10-[address] Raymond Lagos DO -[facility] Work Phone: Start: 03-10-2025 End: 03-10-2025 ambulatory Loan Dias SENIOR QUALITY ASSURANCE ENGINEER-C Work Phone: -[facility] Start: 03-10-2025 End: 03-10-2025 Patient encounter procedure Jarred Markos Angeli DPM Work Phone: [facility] Comment on above: Plantar fasciitis of right foot (Primary Dx); Pain in right foot Start: 03-10-2025 End: 03-10-2025 ambulatory LOAN L DIAS Facility:[facility] Start: 03-08-2025 End: 03-08-2025 Telephone encounter Ag Orth Work Phone: [facility] Start: 03-06-2025 End: 03-06-2025 [facility] Start: 12-29-2024 End: 12-29-2024 ambulatory Francisco Gorman MD Work Phone: [facility] Comment on above: temporary stop on [address] Start: 12-18-2024 End: 12-18-2024 Telephone encounter Francisco Gorman MD Work Phone: [facility] Comment on above: Cardiac Clearance Start: 12-14-[address] Donell Escalante MD -[facility] Start: 12-14-2024 End: 12-14-2024 Patient encounter procedure Verónica Lopez SENIOR QUALITY ASSURANCE ENGINEER-C -[facility] Work Phone: Start: 12-14-2024 End: 12-14-2024 ambulatory Verónica Lopez SENIOR QUALITY ASSURANCE ENGINEER Facility:[facility] Start: 12-10-2024 End: 12-10-2024 ambulatory LOAN L IDAS Facility[facility] Start: 12-09-2024 End: 12-09-2024 Nursing evaluation of patient and report Nurse Card [facility] Work Phone: [facility] Comment on above: Implantable loop rec order present (Primary Dx) Start: 12-09-2024 End: 12-09-2024 ambulatory LOAN L DIAS Facility:[facility] Start: 11-25-2024 End: 11-25-2024 ambulatory LOAN L DIAS Facility:[facility] Start: 11-06-2024 End: 11-06-2024 Telephone encounter Francisco Gorman MD Work Phone: [facility] Comment on above: Preparations For Pro cedures Start: 11-04-2024 End: 11-04-2024 Patient encounter procedure Francisoc Gorman MD Work Phone: [facility] Comment on above: Paroxysmal atrial fi brillation (HCC) (Primary Dx); Sinus bradycardia Start: 11-04-2024 End: 11-04-2024 ambulatory LOAN L DIAS Facility:[facility] Start: 11-03-2024 End: 11-03-2024 ambulatory Loan Dias SENIOR QUALITY ASSURANCE ENGINEER-C Work Phone: [facility] [place] Work Phone: Start: 11-03-2024 End: 11-03-[address] Antonia Escalante MD -[facility]patient [facility] Work Phone: Start: 11-03-2024 End: 11-03-2024 ambulatory Loan Dias SENIOR QUALITY ASSURANCE ENGINEER Facility:[facility] [place] Start: 10-31-2024 End: 10-31-2024 ambulatory Loan Dias SENIOR QUALITY ASSURANCE ENGINEER-C Work Phone: [facility] [place] Work Phone: Start: 10-31-2024 End: 10-31-[address] Antonia Escalante MD -Ultrasound, [facility] Work Phone: Start: 10-31-2024 End: 10-31-2024 ambulatory Loan Dias SENIOR QUALITY ASSURANCE ENGINEER Facility:[facility] [place] Start: 10-29-2024 End: 10-29-2024 Patient encounter procedure Ccf Provider [facility] Department Start: 10-28-2024 End: 10-28-2024 Patient encounter procedure Smith Lopez MD Work Phone: [facility] Comment on above: PFO (patent foramen ovale) (Primary Dx); Paroxysmal atrial fibrillation (HCC) Start: 10-28-2024 End: 10-28-2024 ambulatory LOAN DIAS Facility[place] [place] Start: 10-27-2024 End: 10-27-[address] João Kong [facility] Work Phone: Start: 10-27-2024 End: 10-27-2024 ambulatory João Kong Facility:[facility] Start: 10-27-2024 End: 10-27-2024 ambulatory Loan Dias SENIOR QUALITY ASSURANCE ENGINEER-C Work Phone: [facility] [place] Work Phone: Start: 10-27-2024 End: 10-27-[address] 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 Start: 10-01-2024 End: 10-02-2024 Telephone encounter Christy Luna APRN.DRAW PRESS OPERATOR Work Phone: [facility] [place] Start: 09-30-2024 End: 09-30-2024 Telephone encounter Vandana Goldstein APRN.DRAW PRESS OPERATOR Work Phone: [facility] Comment on above: Aircraft Mechanic Armament - O ther Appointment Start: 09-24-2024 End: 09-30-2024 Evaluation and management of inpatient FRANCISCO GORMAN Facility:[facility] Start: 09-23-2024 Emergency department patient visit LOAN DIAS Facility:[facility] Start: 09-22-2024 End: 09-22-2024 Emergency department patient visit RANDA MEEK Facility:[facility] Start: 09-22-2024 End: 09-23-2024 Telephone encounter Smith Lopez MD Work Phone: [facility] [place] Comment on above: Appointment; Care Co ordinator - Other Start: 09-22-2024 End: 09-22-2024 Emergency department patient visit LOAN Elijah GALLODIAS Facility:[facility] Start: 09-21-[address] Donell Escalante MD -[facility] Start: 09-21-2024 End: 09-21-2024 Patient encounter procedure Verónica Lopez SENIOR QUALITY ASSURANCE ENGINEER-[facility] Work Phone: Start: 09-21-2024 End: 09-21-2024 ambulatory Verónica Lopez SENIOR QUALITY ASSURANCE ENGINEER Facility:[facility] Start: 09-10-2024 End: 09-10-2024 Orders Only Vandana Goldstein APRN.DRAW PRESS OPERATOR Work Phone: [facility] Comment on above: PFO (patent foramen ovale) [Q21.12] Start: 09-08-2024 End: 09-08-2024 ambulatory LOAN DIAS Facility:[facility] Start: 08-31-2024 End: 08-31-[address] Raymond Lagos DO -[facility] Work Phone: Start: 08-31-2024 End: 08-31-2024 ambulatory Loan Dias SENIOR QUALITY ASSURANCE ENGINEER Facility:[facility] Start: 08-17-2024 End: 09-03-2024 Telephone encounter Kishan Piedra MD Work Phone: [facility] Comment on above: Patient Question Start: 08-05-2024 End: 08-05-2024 ambulatory LOAN Elijah GALLODIAS Facility[facility] Start: 07-28-2024 End: 07-28-2024 Telephone encounter Ag Card Work Phone: [facility] Comment on above: Preparations For Pro cedures Start: 07-27-2024 End: 07-27-2024 Patient encounter procedure Ling Harding APRN.DRAW PRESS OPERATOR Work Phone: NEUROLOGY Comment on above: 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); PFO (patent foramen ovale); Essential hypertension; Mixed hyperlipidemia Start: 07-27-2024 End: 07-27-2024 ambulatory LOAN L DIAS Facility[facility] Start: 07-23-2024 End: 07-23-2024 Orders Only Vandana Goldstein APRN.DRAW PRESS OPERATOR Work Phone: [facility] Comment on above: PFO (patent foramen ovale) (Primary Dx) Start: 07-22-2024 End: 07-26-2024 Telephone encounter Cecily Guerrero MD Work Phone: [facility] Comment on above: Patient Question Start: 07-20-2024 End: 07-20-2024 ambulatory LOAN L DIAS Facility[facility] Start: 07-15-2024 End: 07-15-2024 Patient encounter procedure Ccf Provider [facility] Department Start: 07-08-2024 End: 07-08-2024 Telephone encounter Marleny Reyez MD Work Phone: [place] [facility] Comment on above: Modified [place] Start: 07-03-2024 End: 07-03-2024 ambulatory Dia Robotham Facility:[facility] Start: 06-30-2024 End: 06-30-2024 Patient encounter procedure Ccf Provider [facility] Department Start: 06-30-2024 End: 06-30-2024 Telephone encounter Smith Lopez MD Work Phone: [facility] Comment on above: Cardiac Clearance Start: 06-26-2024 End: 06-26-2024 Telephone encounter Ag Card Work Phone: [facility] Comment on above: Preparations For Pro cedures Start: 06-24-2024 End: 06-24-2024 Patient encounter procedure Smith Lopez MD Work Phone: [facility] Comment on above: PFO (patent foramen ovale) (Primary Dx) Start: 06-24-2024 End: 06-24-2024 ambulatory LOAN L DIAS [facility] Start: 06-19-2024 End: 06-19-2024 ambulatory Verónica Lopez NP Facility:[facility] [place] Start: 06-17-2024 End: 06-17-2024 ambulatory Loan Dias SENIOR QUALITY ASSURANCE ENGINEER Facility:[facility] Start: 06-10-2024 End: 06-10-2024 Telephone encounter Lorna Grant [facility] TEST[facility] Start: 06-09-2024 End: 06-09-2024 Patient encounter procedure Ling Glen ARREOLADRAW PRESS OPERATOR Work Phone: Cerebrovascular Comment on above: 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 [place] Start: 05-08-2024 End: 05-08-2024 ambulatory Loan Dias SENIOR QUALITY ASSURANCE ENGINEER Facility:[facility] Start: 04-29-2024 End: 04-29-2024 Telephone encounter Marleny Reyez MD Work Phone: [place] [facility] Comment on above: 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) (Primary Dx) Start: 04-19-2024 End: 04-19-2024 Telemedicine consultation with patient Cruz Wilkins MD Work Phone: Neurosurgery Start: 12-21-2023 End: 12-21-2023 Emergency department patient visit SENIOR QUALITY ASSURANCE ENGINEER-Jennifer Dias SENIOR QUALITY ASSURANCE ENGINEER Work Phone: [facility] [place]-Emergency Department Work Phone: Start: 12-16-2023 End: 12-16-2023 Patient encounter procedure SENIOR QUALITY ASSURANCE ENGINEEROh Dias SENIOR QUALITY ASSURANCE ENGINEER Work Phone: [facility] Work Phone: Start: 12-12-2023 End: 12-12-2023 Emergency department patient visit SENIOR QUALITY ASSURANCE ENGINEER-Jennifer Dias SENIOR QUALITY ASSURANCE ENGINEER Work Phone: [facility] [place]-Emergency Department Work Phone: Start: 12-03-2023 Non-patient / Non-visit SENIOR QUALITY ASSURANCE ENGINEER-Jennifer Dias SENIOR QUALITY ASSURANCE ENGINEER Work Phone: [facility] Start: 12-03-2023 End: 12-03-2023 Admission to same day surgery center SENIOR QUALITY ASSURANCE ENGINEER-Jennifer Dias SENIOR QUALITY ASSURANCE ENGINEER Work Phone: [facility] [place]-Surgical Day Care Start: 12-03-2023 End: 12-03-2023 ambulatory SENIOR QUALITY ASSURANCE ENGINEER-C Loan Dias SENIOR QUALITY ASSURANCE ENGINEER Work Phone: [facility] [place] Work Phone: Start: 11-06-2023 End: 11-06-2023 Patient encounter procedure SENIOR QUALITY ASSURANCE ENGINEER-Jennifer Dias SENIOR QUALITY ASSURANCE ENGINEER Work Phone: [facility] Work Phone: Start: 11-04-2023 End: 11-04-2023 ambulatory SENIOR QUALITY ASSURANCE ENGINEER-Jennifer Dias SENIOR QUALITY ASSURANCE ENGINEER Work Phone: [facility] [place] Work Phone: Start: 11-04-2023 End: 11-04-2023 Patient encounter procedure SENIOR QUALITY ASSURANCE ENGINEER-Jennifer Dias SENIOR QUALITY ASSURANCE ENGINEER Work Phone: [facility] [place]-Outpatient Breast Imaging Work Phone: Start: 11-04-2023 End: 11-04-2023 Patient encounter procedure SENIOR QUALITY ASSURANCE ENGINEER-Jennifer Dias SENIOR QUALITY ASSURANCE ENGINEER Work Phone: [facility] Work Phone: Start: 11-04-2023 End: 11-04-2023 Patient encounter procedure SENIOR QUALITY ASSURANCE ENGINEER-Jennifer Dias SENIOR QUALITY ASSURANCE ENGINEER Work Phone: [facility] Work Phone: Start: 10-09-2023 End: 10-09-2023 Patient encounter procedure SENIOR QUALITY ASSURANCE ENGINEER-Jennifer Dias SENIOR QUALITY ASSURANCE ENGINEER Work Phone: [facility] Work Phone: Start: 09-25-2023 End: 09-25-2023 Patient encounter procedure SENIOR QUALITY ASSURANCE ENGINEER-C Loan Dias SENIOR QUALITY ASSURANCE ENGINEER Work Phone: [facility] Work Phone: Start: 09-23-2023 Registered Recurring SENIOR QUALITY ASSURANCE ENGINEER-C Loan Dias SENIOR QUALITY ASSURANCE ENGINEER Work Phone: [facility] Start: 09-23-2023 End: 09-23-2023 Patient encounter procedure SENIOR QUALITY ASSURANCE ENGINEER-C Loan Dias SENIOR QUALITY ASSURANCE ENGINEER Work Phone: [facility] Work Phone: Start: 09-20-2023 End: 09-20-2023 ambulatory SENIOR QUALITY ASSURANCE ENGINEER-C Loan Dias SENIOR QUALITY ASSURANCE ENGINEER Work Phone: [facility] [place] Work Phone: Start: 09-20-2023 End: 09-20-2023 Patient encounter procedure SENIOR QUALITY ASSURANCE ENGINEER-C Loan Dias SENIOR QUALITY ASSURANCE ENGINEER Work Phone: [facility] Work Phone: Start: 09-09-2023 End: 09-09-2023 Patient encounter procedure SENIOR QUALITY ASSURANCE ENGINEER-C Loan Dias SENIOR QUALITY ASSURANCE ENGINEER Work Phone: [facility] Work Phone: Start: 08-26-2023 End: 08-26-2023 ambulatory SENIOR QUALITY ASSURANCE ENGINEER-C Loan Dias SENIOR QUALITY ASSURANCE ENGINEER Work Phone: [facility] [place] Work Phone: Start: 08-26-2023 End: 08-26-2023 Patient encounter procedure SENIOR QUALITY ASSURANCE ENGINEER-C Loan Dias SENIOR QUALITY ASSURANCE ENGINEER Work Phone: [facility] [place]-Laboratory Work Phone: Start: 08-06-2023 End: 08-06-2023 Patient encounter procedure SENIOR QUALITY ASSURANCE ENGINEER-C Loan Dias SENIOR QUALITY ASSURANCE ENGINEER Work Phone: [facility] Work Phone: Start: 07-29-2023 End: 07-29-2023 ambulatory SENIOR QUALITY ASSURANCE ENGINEER-C Loan Dias SENIOR QUALITY ASSURANCE ENGINEER Work Phone: [facility] [place] Work Phone: Start: 07-29-2023 End: 07-29-2023 Patient encounter procedure SENIOR QUALITY ASSURANCE ENGINEER-C Loan Dias SENIOR QUALITY ASSURANCE ENGINEER Work Phone: [facility] [place]-Laboratory, Specimen Work Phone: Start: 05-27-2023 End: 05-27-2023 Patient encounter procedure SENIOR QUALITY ASSURANCE ENGINEER-C Loan Dias SENIOR QUALITY ASSURANCE ENGINEER Work Phone: [facility] Work Phone: Start: 05-15-2023 End: 05-15-2023 Patient encounter procedure SENIOR QUALITY ASSURANCE ENGINEER-C Loan Dias SENIOR QUALITY ASSURANCE ENGINEER Work Phone: [facility] Work Phone: Start: 05-06-2023 End: 05-06-2023 Patient encounter procedure SENIOR QUALITY ASSURANCE ENGINEER-C Loan Dias SENIOR QUALITY ASSURANCE ENGINEER Work Phone: [facility] Work Phone: Start: 03-14-2023 End: 03-14-2023 ambulatory SENIOR QUALITY ASSURANCE ENGINEER-C Loan Dias SENIOR QUALITY ASSURANCE ENGINEER Work Phone: [facility] [place] Work Phone: Start: 03-14-2023 End: 03-14-2023 Patient encounter procedure SENIOR QUALITY ASSURANCE ENGINEER-C Loan Dias SENIOR QUALITY ASSURANCE ENGINEER Work Phone: [facility] Work Phone: Start: 03-06-2023 End: 03-06-2023 Patient encounter procedure SENIOR QUALITY ASSURANCE ENGINEER-C Loan Dias SENIOR QUALITY ASSURANCE ENGINEER Work Phone: [facility] Work Phone: Start: 03-06-2023 End: 03-06-2023 Patient encounter procedure SENIOR QUALITY ASSURANCE ENGINEER-C Loan Dias SENIOR QUALITY ASSURANCE ENGINEER Work Phone: [facility] Work Phone: Start: 02-28-2023 End: 02-28-2023 Patient encounter procedure SENIOR QUALITY ASSURANCE ENGINEER-Jennifer Dias SENIOR QUALITY ASSURANCE ENGINEER Work Phone: [facility] Work Phone: Start: 02-26-2023 End: 02-26-2023 ambulatory SENIOR QUALITY ASSURANCE ENGINEER-C Lona Dias SENIOR QUALITY ASSURANCE ENGINEER Work Phone: [facility] [place] Work Phone: Start: 02-26-2023 End: 02-26-2023 Patient encounter procedure SENIOR QUALITY ASSURANCE ENGINEER-Jennifer Dias SENIOR QUALITY ASSURANCE ENGINEER Work Phone: [facility] [place]-Outpatient Breast Imaging Work Phone: Start: 02-20-2023 End: 02-20-2023 Patient encounter procedure SENIOR QUALITY ASSURANCE ENGINEER-Jennifer Dias SENIOR QUALITY ASSURANCE ENGINEER Work Phone: [facility] Work Phone: Start: 01-28-2023 End: 01-28-2023 Patient encounter procedure SENIOR QUALITY ASSURANCE ENGINEER-Jennifer Dias SENIOR QUALITY ASSURANCE ENGINEER Work Phone: [facility] [facility] Work Phone: Start: 01-15-2023 Non-patient / Non-visit SENIOR QUALITY ASSURANCE ENGINEER-C Tereza Dias SENIOR QUALITY ASSURANCE ENGINEER Work Phone: [facility] Start: 01-15-2023 End: 01-15-2023 ambulatory SENIOR QUALITY ASSURANCE ENGINEER-C Loan Dias SENIOR QUALITY ASSURANCE ENGINEER Work Phone: [facility] Work Phone: Start: 01-15-2023 End: 01-15-2023 Patient encounter procedure SENIOR QUALITY ASSURANCE ENGINEER-Jennifer Dias SENIOR QUALITY ASSURANCE ENGINEER Work Phone: [facility]-Cardiovascular Services Start: 12-28-2022 End: 12-28-2022 Patient encounter procedure SENIOR QUALITY ASSURANCE ENGINEER-Jennifer Dias SENIOR QUALITY ASSURANCE ENGINEER Work Phone: [facility] Start: 12-04-2022 Non-patient / Non-visit SENIOR QUALITY ASSURANCE ENGINEER-C Tereza Dias SENIOR QUALITY ASSURANCE ENGINEER Work Phone: [facility] Start: 11-05-2022 Registered Recurring SENIOR QUALITY ASSURANCE ENGINEER-Jennifer Dias SENIOR QUALITY ASSURANCE ENGINEER Work Phone: [facility] Start: 11-05-2022 End: 11-05-2022 Patient encounter procedure SENIOR QUALITY ASSURANCE ENGINEER-Jennifer Dias SENIOR QUALITY ASSURANCE ENGINEER Work Phone: [facility] Start: 11-01-2022 End: 11-01-2022 Patient encounter procedure SENIOR QUALITY ASSURANCE ENGINEER-Jennifer Dias SENIOR QUALITY ASSURANCE ENGINEER Work Phone: [facility] Start: 10-31-2022 End: 10-31-2022 ambulatory SENIOR QUALITY ASSURANCE ENGINEER-Jennifer Dias SENIOR QUALITY ASSURANCE ENGINEER Work Phone: [facility] Work Phone: Start: 10-31-2022 End: 10-31-2022 Patient encounter procedure SENIOR QUALITY ASSURANCE ENGINEER-Jennifer Dias SENIOR QUALITY ASSURANCE ENGINEER Work Phone: [facility]-Outpatient Breast Imaging Start: 07-25-2022 End: 07-25-2022 Patient encounter procedure SENIOR QUALITY ASSURANCE ENGINEER-Jennifer Dias SENIOR QUALITY ASSURANCE ENGINEER Work Phone: [facility] Start: 05-21-2022 Non-patient / Non-visit SENIOR QUALITY ASSURANCE ENGINEER-C Tereza Dias SENIOR QUALITY ASSURANCE ENGINEER Work Phone: [facility] Start: 05-21-2022 End: 05-21-2022 Admission to same day surgery center SENIOR QUALITY ASSURANCE ENGINEER-Jennifer Dias SENIOR QUALITY ASSURANCE ENGINEER Work Phone: [facility]-Endoscopy Start: 05-21-2022 End: 05-21-2022 ambulatory SENIOR QUALITY ASSURANCE ENGINEER-C Loan Dias SENIOR QUALITY ASSURANCE ENGINEER Work Phone: [facility] Work Phone: Start: 04-26-2022 Non-patient / Non-visit SENIOR QUALITY ASSURANCE ENGINEER-C Tereza Dias SENIOR QUALITY ASSURANCE ENGINEER Work Phone: [facility] Start: 04-25-2022 Non-patient / Non-visit SENIOR QUALITY ASSURANCE ENGINEER-Jennifer Dias SENIOR QUALITY ASSURANCE ENGINEER Work Phone: [facility] Start: 04-25-2022 Registered Recurring SENIOR QUALITY ASSURANCE ENGINEER-Jennifer Dias SENIOR QUALITY ASSURANCE ENGINEER Work Phone: [facility] Start: 04-25-2022 End: 04-25-2022 Patient encounter procedure SENIOR QUALITY ASSURANCE ENGINEER-Jennifer Dias SENIOR QUALITY ASSURANCE ENGINEER Work Phone: [facility] Start: 02-16-2022 End: 02-16-2022 Patient encounter procedure SENIOR QUALITY ASSURANCE ENGINEER-Jennfier Dias SENIOR QUALITY ASSURANCE ENGINEER Work Phone: [facility] Start: 02-05-2022 End: 02-05-2022 Patient encounter procedure SENIOR QUALITY ASSURANCE ENGINEER-Jennifer Dias SENIOR QUALITY ASSURANCE ENGINEER Work Phone: [facility] Start: 01-29-2022 End: 01-29-2022 Patient encounter procedure SENIOR QUALITY ASSURANCE ENGINEER-Jennifer Dais SENIOR QUALITY ASSURANCE ENGINEER Work Phone: [facility] Start: 01-24-2022 End: 01-24-2022 Patient encounter procedure SENIOR QUALITY ASSURANCE ENGINEER-Jennifer Dias SENIOR QUALITY ASSURANCE ENGINEER Work Phone: [facility] Start: 01-21-2022 End: 01-21-2022 Emergency department patient visit SENIOR QUALITY ASSURANCE ENGINEER-Jennifer Dias SENIOR QUALITY ASSURANCE ENGINEER Work Phone: [facility]-Emergency Department Start: 01-12-2022 End: 01-12-2022 Patient encounter procedure SENIOR QUALITY ASSURANCE ENGINEER-Jenniefr Dias SENIOR QUALITY ASSURANCE ENGINEER Work Phone: [facility] Start: 01-02-2022 End: 01-02-2022 Patient encounter procedure SENIOR QUALITY ASSURANCE ENGINEER-Jennifer Dias SENIOR QUALITY ASSURANCE ENGINEER Work Phone: [facility] Start: 12-01-2021 End: 12-01-2021 Patient encounter procedure SENIOR QUALITY ASSURANCE ENGINEER-C Loan Galloson SENIOR QUALITY ASSURANCE ENGINEER Work Phone: [facility] Start: 10-26-2021 End: 10-26-2021 Patient encounter procedure SENIOR QUALITY ASSURANCE ENGINEER-C Loan Galloson SENIOR QUALITY ASSURANCE ENGINEER Work Phone: [facility] Start: 10-26-2021 End: 10-26-2021 Patient encounter procedure SENIOR QUALITY ASSURANCE ENGINEER-C Loanaruna GalloDias SENIOR QUALITY ASSURANCE ENGINEER Work Phone: [facility]-Outpatient Breast Imaging Start: 10-18-2021 Registered Recurring SENIOR QUALITY ASSURANCE ENGINEER-C Loanaruna GalloDias SENIOR QUALITY ASSURANCE ENGINEER Work Phone: [facility] Start: 10-18-2021 End: 10-18-2021 Patient encounter procedure SENIOR QUALITY ASSURANCE ENGINEER-C Loan Galloson SENIOR QUALITY ASSURANCE ENGINEER Work Phone: [facility] Start: 07-31-2021 Patient encounter status SENIOR QUALITY ASSURANCE ENGINEER-C Loanaruna GalloDias SENIOR QUALITY ASSURANCE ENGINEER Work Phone: [facility] Start: 05-03-2018 End: 05-03-2018 Patient encounter [place] [facility] Start: 04-24-2018 End: 04-24-2018 Patient encounter [place] [facility] Start: 03-19-2018 End: 03-21-2018 Patient encounter [facility] Start: 10-24-2017 Patient encounter [facility] Start: 10-11-2017 Patient encounter [facility] Procedures Date Procedure Procedure Detail Performing Clinician Start: 04-07-2025 Injection 1 tendon sheath/ligament aponeurosis Jarred GARCIAM Work Phone: Start: 04-04-2025 Plain chest X-ray Loan Dias SENIOR QUALITY ASSURANCE ENGINEER-C Work Phone: Start: 04-04-2025 Estimated creatinine clearance Loan Arun SENIOR QUALITY ASSURANCE ENGINEER-C Work Phone: Start: 12-14-2024 Estimated creatinine clearance Loan Dias SENIOR QUALITY ASSURANCE ENGINEER-C Work Phone: Start: 11-03-2024 Dual energy X-ray absorptiometry Loan Dias SENIOR QUALITY ASSURANCE ENGINEER-C Work Phone: Start: 11-03-2024 Screening mammography D kae Dias SENIOR QUALITY ASSURANCE ENGINEER-C Work Phone: Start: 10-31-2024 Ultrasonography of abdomen Loan Dias SENIOR QUALITY ASSURANCE ENGINEER-C Work Phone: Start: 10-27-2024 MRI of lumbar spine Cirilo Dias SENIOR QUALITY ASSURANCE ENGINEER-C Work Phone: Start: 09-22-2024 Electrocardiogram LOAN DIAS Start: 09-21-2024 Measurement of renal function Loan Dias SENIOR QUALITY ASSURANCE ENGINEER-C Work Phone: Comment on above: GFR Calc Start: 09-10-2024 Echo tthrc r-t 2d w/wom-mode compl spec&colr d Vandana Goldstein JEWELRY JOBBER.DRAW PRESS OPERATOR Work Phone: Start: 09-10-2024 Echocardiography LOAN R SHARIFON Start: 09-10-2024 LVEF ECHO Vandana Goldstein JEWELRY JOBBER.DRAW PRESS OPERATOR Work Phone: Start: 09-10-2024 Radiologic exam ches t single view Vandana Goldstein JEWELRY JOBBER.DRAW PRESS OPERATOR Work Phone: Start: 09-10-2024 Coagulation time activated Smith Lopez MD Work Phone: Start: 08-31-2024 X-ray of knee, four or more views Loanaruna GalloDias SENIOR QUALITY ASSURANCE ENGINEER-C Work Phone: Start: 04-20-2024 Lipid 1996 panel - S wesley or Plasma Marleny Reyez MD Work Phone: Start: 04-19-2024 Electrocardiogram LOANAruna GALLODIAS Start: 12-12-2023 SARS-CoV-2, Influenz a & RSV (PCR) SENIOR QUALITY ASSURANCE ENGINEER-C Loanaruna aGlloDias SENIOR QUALITY ASSURANCE ENGINEER Work Phone: Start: 12-12-2023 Plain chest X-ray SENIOR QUALITY ASSURANCE ENGINEER-C Loan Arun SENIOR QUALITY ASSURANCE ENGINEER Work Phone: Start: 12-03-2023 Arthroscopy of knee SENIOR QUALITY ASSURANCE ENGINEER- C Loan Dias SENIOR QUALITY ASSURANCE ENGINEER Work Phone: Start: 11-04-2023 Screening mammography N P-C Loan Dias SENIOR QUALITY ASSURANCE ENGINEER Work Phone: Start: 09-20-2023 MRI of joint of lowe r extremity SENIOR QUALITY ASSURANCE ENGINEER-C Loan Dias SENIOR QUALITY ASSURANCE ENGINEER Work Phone: Start: 09-09-2023 Radiologic examinati on of knee SENIOR QUALITY ASSURANCE ENGINEER-C Loan Dias SENIOR QUALITY ASSURANCE ENGINEER Work Phone: Start: 05-15-2023 Radiologic examinati on of knee SENIOR QUALITY ASSURANCE ENGINEER-C Loan Dias SENIOR QUALITY ASSURANCE ENGINEER Work Phone: Start: 03-14-2023 MRI of bilateral shyla asts with contrast SENIOR QUALITY ASSURANCE ENGINEER-C Loan Dias SENIOR QUALITY ASSURANCE ENGINEER Work Phone: Start: 03-06-2023 Radiologic examinati on of knee SENIOR QUALITY ASSURANCE ENGINEER-C Loan Dias SENIOR QUALITY ASSURANCE ENGINEER Work Phone: Start: 02-26-2023 Mammography SENIOR QUALITY ASSURANCE ENGINEER-C Loan Dias SENIOR QUALITY ASSURANCE ENGINEER Work Phone: Start: 02-26-2023 Ultrasonography of breast SENIOR QUALITY ASSURANCE ENGINEER-C Loan Dias SENIOR QUALITY ASSURANCE ENGINEER Work Phone: Start: 10-31-2022 Dual energy X-ray absorptiometry SENIOR QUALITY ASSURANCE ENGINEER-C Loan Dias SENIOR QUALITY ASSURANCE ENGINEER Work Phone: Start: 10-31-2022 Screening mammography N P-C Loan Dias SENIOR QUALITY ASSURANCE ENGINEER Work Phone: Start: 05-21-2022 Colonoscopy SENIOR QUALITY ASSURANCE ENGINEER-C Loan Dias SENIOR QUALITY ASSURANCE ENGINEER Work Phone: Start: 01-21-2022 Plain chest X-ray SENIOR QUALITY ASSURANCE ENGINEER-C Loan Dias SENIOR QUALITY ASSURANCE ENGINEER Work Phone: Start: 01-21-2022 CT of head without contrast SENIOR QUALITY ASSURANCE ENGINEER-C Loan Dais SENIOR QUALITY ASSURANCE ENGINEER Work Phone: Start: 01-02-2022 Radiologic examinati on of knee SENIOR QUALITY ASSURANCE ENGINEER-C Loan Galloson SENIOR QUALITY ASSURANCE ENGINEER Work Phone: Start: 10-26-2021 CT of thorax with contrast SENIOR QUALITY ASSURANCE ENGINEER-C Loan Dias SENIOR QUALITY ASSURANCE ENGINEER Work Phone: Start: 10-26-2021 Screening mammography N P-C Loan Dias SENIOR QUALITY ASSURANCE ENGINEER Work Phone: Start: 01-25-2021 Trichomonas screening test Loan Dias SENIOR QUALITY ASSURANCE ENGINEER-C Work Phone: Start: 03-20-2018 Lipid 1996 panel - S wesley or Plasma Cruz Wilkins MD Work Phone: History of operative procedure on knee S/P arthroscopic surgery of left knee SENIOR QUALITY ASSURANCE ENGINEER-C Loan Dias SENIOR QUALITY ASSURANCE ENGINEER Work Phone: Plan of Treatment Date Care Activity Detail Author Start: 09-26-2029 Urine microalbumin profile DTaP,Tdap,Td Vaccine (3 - Td or Tdap) [facility] Start: 04-20-2029 Lipid panel Lipid Screening [facility] Start: 09-30-2027 Diabetes Screening Diabetes Screening [facility] Start: 09-22-2027 Diabetes Screening Diabetes Screening [facility] Start: 09-08-2027 Diabetes Screening Diabetes Screening [facility] Start: 04-23-2027 Diabetes Screening Diabetes Screening [facility] Start: 04-19-2027 Diabetes Screening Diabetes Screening [facility] Start: 12-10-2025 End: 12-10-2025 Patient encounter procedure 12/10/2025 10:00 AM EDT Office Visit [facility] [address] [place] [address] Francisco Gorman MD [address] [place] [address] 1 year follow up [facility] Comment on above: 1 year follow up Start: 07-27-2025 BP Controlled (<130/80) BP Controlled (<130/80) [facility] Start: 05-12-2025 End: 05-12-2025 Patient encounter procedure 05/12/2025 9:45 AM EDT Office Visit [facility] [address] [place], [place] [id number] Jarred Suh DPM [address] [place] [address] Follow up Right foot [facility] Comment on above: Follow up Right foot Start: 04-30-2025 End: 04-30-2025 Patient encounter procedure 04/30/2025 9:00 AM EDT Office Visit [facility] [address] [place] [address] Smith Lopez MD [address] [place] [address] Return in about 6 months. kh [facility] Comment on above: Return in about 6 months. Start: 04-19-2025 Influenza vaccination [facility] Start: 04-07-2025 End: 04-07-2025 Patient encounter procedure 04/07/2025 9:45 AM EDT Office Visit [facility] [address] [place] [address] Jarred Suh DPM [address] [place] [address] Follow up Right foot [facility] Comment on above: Follow up Right foot Start: 04-04-2025 [facility] Start: 04-04-2025 Plain chest X-ray Chest 1 View (Portable) [facility] Start: 04-04-2025 XR Chest Single view [facility] Start: 04-04-2025 End: 04-04-2025 [facility] Start: 03-12-2025 Evaluation of diagnostic study results [facility] Start: 03-10-2025 End: 03-10-2025 Patient encounter procedure 03/10/2025 9:15 AM EDT Office Visit [facility] [address] [place] [address] Jarred Suh DPM [address] [place] [address] R foot/poss plantar fasciitis [facility] Comment on above: R foot/poss plantar fasciitis Start: 02-01-2025 End: 02-01-2025 Patient encounter procedure 02/01/2025 9:30 AM EDT Office Visit NEUROLOGY [address] [place] [address] Ling Harding APRN.DRAW PRESS OPERATOR [address] [place] [address] 6 month follow up NEUROLOGY Comment on above: 6 month follow up Start: 12-29-2024 End: 12-29-2024 Patient encounter procedure 12/29/2024 8:00 AM EDT Procedure [facility] [address] [place] [address] loop/sv/mdt/naif [facility] Comment on above: loop/sv/mdt/naif Start: 12-25-2024 End: 12-25-2024 Patient encounter procedure 12/25/2024 8:00 AM EDT Procedure [facility] [address] [place] [address] loop/sv/mdt/naif [facility] Comment on above: loop/sv/mdt/naif Start: 12-23-2024 End: 12-23-2024 Patient encounter procedure 12/23/2024 8:20 AM EDT Office Visit [facility] [address] [place] [address] Smith Lopez MD [address] [place] [address] Return in about 6 months (around 12/22/2024). [facility] Comment on above: Return in about 6 months (around ). Start: 12-07-2024 End: 12-07-2024 Patient encounter procedure 12/07/2024 10:00 AM EDT Office Visit [facility] [address] [place] [address] Francisco Gorman MD [address] [place] [id number] Hospital follow up; monitor results [facility] Comment on above: Hospital follow up; monitor results Start: 11-25-2024 End: 11-25-2024 Admission to same day surgery center 11/25/2024 8:00 AM EDT - 11/25/2024 9:40 AM EDT [facility] [address] [place] [address] Francisco Gorman MD [address] [place] [phone] (Fax) INSERTION SUBCUTANEIOUS CARDIAC RHYTHM MONITOR,INCL [...] EDT Hospital Encounter [facility] [address] [place] [address] Francisco Gorman MD [address] [place] [phone] (Fax) Paroxysmal atrial fibrillation (HCC) [I48.0], Sinus bradycardia [R00.1] [facility] Comment on above: Paroxysmal atrial fibrillation (HCC) [I4 8.0], Sinus bradycardia [R00.1] Start: 11-04-2024 End: 11-04-2024 Patient encounter procedure 11/04/2024 2:40 PM EDT Office Visit [facility] [address] [place], [place] [id number] Francisco Gorman MD [address] [place] [phone] (Fax) Discuss montior results/PPM Implant [facility] Comment on above: Discuss montior results/PPM Implant Start: 10-28-2024 End: 10-28-2024 Patient encounter procedure [facility] Comment on above: 1mo PFO Closure follow up 1mo PFO Closure foll ow up/srs Start: 09-10-2024 End: 09-10-2024 Admission to same day surgery center 09/10/2024 12:00 PM EST - 09/10/2024 2:00 PM EST [facility] [address] [place] [address] Smith Lopez MD [address] [place] [address] PERCUTANEOUS TRANSCATHETER 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 [facility] Comment on above: PERCUTANEOUS TRANSCATHETER CLOSURE OF CO NGENITAL INTERATRIAL COMMUNICATION W/O IMPLANT Start: 09-10-2024 Subsequent hospital visit by physician 09/10/2024 12:00 PM EST Hospital Encounter [facility] [address] [place] [address] Smith Lopez MD [address] [place] [address] PFO (patent foramen ovale) [Q21.12] [facility] Comment on above: PFO (patent foramen ovale) [Q21.12] Start: 09-10-2024 End: 09-10-2024 Intracard echocard w/ther/dx ivntj incl img s&i [facility] Start: 09-10-2024 End: 09-10-2024 Prq tcat clsr cgen intratrl comunicaj w/implt [facility] Start: 08-19-2024 Advance Directive Discussion Advance Directive Discussion [facility] Start: 08-19-2024 Medicare Advantage Annual Wellness Visit Medicare Advantage Annual Wellness Visit [facility] Start: 08-05-2024 End: 08-05-2024 Admission to same day surgery center 08/05/2024 9:50 AM EST - 08/05/2024 10:55 AM EST [facility] [address] [place] [address] Kishan Piedra MD [address] [place] [address] ECHOCARDIOGRAM TRANSESOPHOGEAL, REAL TIME W/IMAGE DOCUMENT (2D) [...] Office Visit NEUROLOGY [address] [phone] Ling Harding APRN.DRAW PRESS OPERATOR [address] [place] [address] 6 week follow up NEUROLOGY Comment on above: 6 week follow up Start: 07-20-2024 End: 07-20-2024 Admission to same day surgery center 07/20/2024 8:30 AM EST - 07/20/2024 9:30 AM EST Surgery [facility] [address] [place] [address] Cecily Guerrero MD [address] [place] [address] (Fax) ECHOCARDIOGRAM TRANSESOPHOGEAL [facility] Comment on above: ECHOCARDIOGRAM TRANSESOPHOGEAL Start: 07-20-2024 End: 07-20-2024 Echo transesophag montr cardiac pump functj ECHOCARDIOGRAM TRANSESOPHOGEAL PFO (patent foramen ovale) 07/20/2024 8:30 AM EST [facility] Start: 07-20-2024 Subsequent hospital visit by physician 07/20/2024 8:30 AM EST Hospital Encounter [facility] [address] [place] [address] Cecily Guerrero MD [address] [place] [address] PFO (patent foramen ovale) [Q21.12] [facility] Comment on above: PFO (patent foramen ovale) [Q21.12] Start: 06-24-2024 End: 06-24-2024 Patient encounter procedure [facility] Comment on above: PFO PFO /sab Start: 06-09-2024 End: 06-09-2024 Patient encounter procedure 06/09/2024 1:30 PM EDT Office Visit [facility] [address] [place] [address] Ling Harding APRN.DRAW PRESS OPERATOR [address] [place] [address] Order [id number] [facility] Comment on above: Order [id number] Start: 04-19-2024 Covid-19 Vaccine ( season) Covid-19 Vaccine ( season) [facility] Start: 04-19-2024 Covid-19 Vaccine ( season) Covid-19 Vaccine ( season) [facility] Start: 04-19-2024 Influenza vaccination Influenza Vaccine (#1) [facility] Start: 12-12-2023 [facility] Start: 12-12-2023 End: 12-12-2023 [facility] Start: 12-03-2023 Anes open/surg arthroscopic proc knee joint nos ANESTH KNEE JOINT SURGERY [facility] Start: 12-03-2023 Arthrs knee w/meniscectomy med&lat w/shaving KNEE ARTHROSCOPY/SURGERY [facility] Start: 12-03-2023 Patient discharge [facility] Start: 12-03-2023 Application of ice collar, cap or bag [facility] Start: 12-03-2023 Catheterization of vein [facility] Start: 12-03-2023 Elevation of affected extremity [facility] Start: 12-03-2023 Following clinical pathway protocol [facility] Start: 12-03-2023 Procedure discontinued [facility] Start: 12-03-2023 Provision of mobility device [facility] Start: 12-03-2023 Taking patient vital signs [facility] Start: 12-03-2023 Vital signs measurements [facility] Start: 12-03-2023 End: 12-03-2023 [facility] Start: 12-03-2023 Medication education [facility] Start: 08-19-2023 Advance Directive Discussion Advance Directive Discussion [facility] Start: 03-20-2023 Lipid panel Lipid Screening [facility] Start: 10-31-2022 Dual energy X-ray absorptiometry Dexa Bone Density Study [facility] Start: 10-31-2022 DXA Bone [Mass/Area] Bone density [facility] Start: 05-21-2022 Patient discharge [facility] Work Phone: Start: 01-24-2022 Patient referral [facility] Work Phone: Start: 01-21-2022 [facility] Work Phone: Start: 01-01-2022 Patient referral [facility] Work Phone: Start: 05-30-2021 Screening for malignant neoplasm of breast Mammogram Screening [facility] Start: 11-16-2020 Venous catheter care management [facility] Start: 09-09-2020 [facility] Start: 06-13-2020 [facility] Start: 2019 Pneumococcal Vaccine: 65+ (1 of 1 - PCV) Pneumococcal Vaccine: 65+ (1 of 1 - PCV) [facility] Start: 2019 Screening for osteoporosis Bone Density Screening [facility] Start: 2014 RSV Vaccine (1 - 1-dose 60+ series) RSV Vaccine (1 - 1-dose 60+ series) [facility] Start: 2014 RSV Vaccine (1 - Risk 60-74 years 1-dose series) RSV Vaccine (1 - Risk 60-74 years 1-dose series) [facility] Start: 2004 Pneumococcal Vaccine: 50+ (1 of 1 - PCV) Pneumococcal Vaccine: 50+ (1 of 1 - PCV) [facility] Start: 2004 Shingrix Vaccine (1 of 2) Shingrix Vaccine (1 of 2) [facility] Start: 1999 Screening for malignant neoplasm of colon [facility] Start: 1973 Pneumococcal Vaccine: 50+ (1 of 2 - PCV) Pneumococcal Vaccine: 50+ (1 of 2 - PCV) [facility] Start: 1973 Shingrix Vaccine (1 of 2) Shingrix Vaccine (1 of 2) [facility] Start: 1972 Annual PCP Team Chronic Disease Visit Annual PCP Team Chronic Disease Visit [facility] Start: 1972 BP Controlled (<130/80) BP Controlled (<130/80) [facility] Start: 1972 Depression Screening Depression Screening [facility] Start: 1972 Hepatitis C screening Hepatitis C Screening [facility] CBC W Auto Different ial panel - Blood [facility] Colonoscopy [facility] Work Phone: Comprehensive metabo lic 2000 panel - Serum or Plasma [facility] ECG B/O W INTERP (ME D OFFICE) ECG B/O W INTERP (MED OFFICE) ECG Routine PFO (patent foramen ovale) Ordered: 06/24/2024 [facility] Work Phone: Comment on above: Ordered: 06/24/2024 ECG B/O W INTERP (ME D OFFICE) ECG B/O W INTERP (MED OFFICE) ECG Routine Ordered: 11/04/2024 [facility] Work Phone: Comment on above: Ordered: 11/04/2024 Echo transesophag r- t 2d w/prb img acquisj i&r ECHOCARDIOGRAM TRANSESOPHOGEAL, REAL TIME W/IMAGE DOCUMENT (2D) PFO (patent foramen ovale) [place] EP LAB End: 06-24-2025 ECHO TRANSESOPHAGEAL ECHO TRANSESOPHAGEAL Cardiology Routine PFO (patent foramen ovale) 1 Occurrences starting 06/24/2024 until 06/24/2025 [facility] Comment on above: 1 Occurrences starting 06/24/2024 until 06/24/2025 End: 07-23-2025 ECHO TRANSESOPHAGEAL ECHO TRANSESOPHAGEAL Cardiology Routine PFO (patent foramen ovale) 1 Occurrences starting 07/23/2024 until 07/23/2025 [facility] Work Phone: Comment on above: 1 Occurrences starting 07/23/2024 until 07/23/2025 End: 07-26-2025 ECHO TRANSESOPHAGEAL ECHO TRANSESOPHAGEAL Cardiology Routine PFO (patent foramen ovale) 1 Occurrences starting 07/26/2024 until 07/26/2025 [facility] Work Phone: Comment on above: 1 Occurrences starting 07/26/2024 until 07/26/2025 End: 09-10-2024 ELECTROPHYSIOLOGY US ELECTROPHYSIOLOGY US BIC Routine One Time for 1 Occurrences starting 09/10/2024 until 09/10/2024 [facility] Work Phone: Comment on above: One Time for 1 Occurrences starting 08/20 until 09/10/2024 Insertion subq cardi ac rhythm monitor w/prgrmg INSERTION SUBCUTANEIOUS CARDIAC RHYTHM MONITOR,INCL PROGRAMMNG Paroxysmal atrial fibrillation (HCC) Sinus bradycardia [facility] EP LAB MG Breast - bilatera l Diagnostic [facility] MG Breast - bilatera l Screening [facility] Patient Education [facility] Work Phone: Patient referral [facility] Work Phone: End: 09-10-2024 RIGHT HEART CATHETERIZATION RIGHT HEART CATHETERIZATION BIC Routine One Time for 1 Occurrences starting 09/10/2024 until 09/10/2024 [facility] Comment on above: One Time for 1 Occurrences starting 08/20 until 09/10/2024 [facility] Immunizations Immunization Date Immunization Notes Care Provider Tasha burton 08-27-2021 COVID-19 original vaccine, age 12+ yr, monovalent ([employer] - PURPLE TOP) Cruz Wilkins MD Work Phone: [facility] 06-19-2021 influenza, injectabl e, quadrivalent, preservative free SENIOR QUALITY ASSURANCE ENGINEER-C Loan Dias SENIOR QUALITY ASSURANCE ENGINEER Work Phone: [facility] 06-19-2021 influenza, seasonal, injectable SENIOR QUALITY ASSURANCE ENGINEER-C Loan Dias SENIOR QUALITY ASSURANCE ENGINEER Work Phone: [facility] 06-19-2021 influenza virus vaccine, unspecified formulation Cruz Wilkins MD Work Phone: [facility] 05-26-2020 influenza, injectabl e, quadrivalent, preservative free SENIOR QUALITY ASSURANCE ENGINEER-C Loan Dias SENIOR QUALITY ASSURANCE ENGINEER Work Phone: [facility] 05-26-2020 influenza, seasonal, injectable SENIOR QUALITY ASSURANCE ENGINEER-C Loan Dias SENIOR QUALITY ASSURANCE ENGINEER Work Phone: [facility] 05-26-2020 influenza, seasonal, injectable, preservative free Cruz Wilkins MD Work Phone: [facility] 09-26-2019 diphtheria, tetanus toxoids and acellular pertussis vaccine, unspecified formulation SENIOR QUALITY ASSURANCE ENGINEER-C Loan Dias SENIOR QUALITY ASSURANCE ENGINEER Work Phone: [facility] Work Phone: 09-26-2019 tetanus toxoid, reduced diphtheria toxoid, and acellular pertussis vaccine, adsorbed SENIOR QUALITY ASSURANCE ENGINEER-Jennifer Dias SENIOR QUALITY ASSURANCE ENGINEER Work Phone: [facility] Payers Date Payer Category Payer Medicare (Managed Care) [facility] Member Subscriber Plan / Payer (Effective 2023-Present) Name: Bo Jacob Relation to Subscriber: Self Name: Bo Jacob Payer ID: [id number] (NAIC) Group ID: [id number] Type: HMO Address: [address] [place] [id number] 2023 Unknown CHACE GARNER [facility] MEDICARE ADVANTAGE HMO [id number] 2023-Present [phone] [address] [place] [address] O [id number] 2023 Medicaid [id number] 2020 Medicaid [id number] 2020 Medicare [id number] 2020 Self-pay [id number] Medicare [id number] Medicare ANTHEM MEDICARE SENIOR ADVANTA [id number] Unknown [id number] Unknown [id number]. 462 Unknown [id number] [id number]. 462 Unknown [id number] 2.16840.1.208103.3.579.2. 462 Unknown [id number] 2.16840.1.391802.3.579.2. 462 Unknown [id number] 2.16840.1.039935.3.579.2. 462 Unknown [id number] 2.16840.1.936326.3.579.2. 462 Unknown [id number] 2.16840.1.807560.3.579.2. 462 Unknown [id number] 2.16840.1.061185.3.579.2. 462 Unknown [id number] 2.16840.1.403295.3.579.2. 462 Unknown [id number] 2.16840.1.187768.3.579.2. 462 Unknown [id number] 2.16840.1.283146.3.579.2. 462 Unknown [id number] 2.16840.1.646592.3.579.2. 462 Unknown [id number] 2.16.840.1.416282.3.579.2. 462 Unknown [id number] 2.840.1.455116.3.579.2. 462 Unknown [id number] 2.16840.1.339219.3.579.2. 462 Unknown [id number] 2.16840.1.919251.3.579.2. 462 Unknown [id number] 2.840.1.082634.3.579.2. 462 Unknown [id number] 2.16840.1.148583.3.579.2. 462 Unknown [id number] 2.0.1.441371.3.579.2. 462 Unknown [id number] [id number]. 462 Social History Date Type Detail Facility Start: 01-21-2022 End: 05-15-2023 Tobacco smoking status [facility] Unknown if ever smoked [facility] Start: 09-07-[address] [facility] Start: 09-07-[address] [facility] Start: 09-07-[address] [facility] Start: 11-28-[address] [facility] Start: 1955 Sex Assigned At Female W [facility] Start: 05-11-2020 End: 06-09-2024 Tobacco smoking status MSIS Ex-smoker [facility] History of tobacco use Current smoker [facility] History of tobacco use Cigarette Smoker [facility] Start: 05-11-2020 End: 11-04-2024 Tobacco use and exposure Smokeless tobacco non-user [facility] Start: 07-16-2021 End: 07-27-2024 Alcoholic beverage intake Current drinker of alcohol (finding) [facility] Start: 07-24-2020 End: 07-16-2021 Alcoholic beverage intake [facility] Start: 06-10-2020 End: 07-24-2020 Alcohol Use Disorder Identification Test - Consumption [AUDIT-C] [facility] How often to you hav e a drink containing alcohol? 2-3 time sa week [facility] How many standard dr inks containing alcohol do you have on a typical day? 3 or 4 [facility] Start: 07-20-2012 Frequency of Binge Drinking Not on file [facility] Start: 05-11-2020 End: 06-09-2024 Tobacco Comment Pt smoked one pack weekly x 1 year. [facility] Start: 04-25-2021 Alcohol Comment glass of wine every couple of days [facility] Start: 03-29-2020 Gender identity Identifies as female gender (finding) [facility] Has the panOpen, Sarsys, or water [employer] threatened to shut off services in your home in past 12Mo No [facility] Work Phone: (I/We) worried ian er (my/our) food would run out before (I/we) got money to buy more. Never true [facility] Start: 06-24-2024 Alcohol Comment rately [facility] Start: 09-22-2024 End: 04-07-2025 Alcoholic beverage intake Ex-drinker (finding) [facility] Start: 11-04-2024 End: 04-12-2025 Tobacco smoking status NHIS Never smoked tobacco [facility] Start: 11-04-2024 Alcohol Comment none [facility] Start: 11-05-2024 End: 11-11-2024 Sex Female (finding) [facility] NEGATED: Highlighted row [facility] Medical Equipment Procedure Code Equipment Code Equipment Origin al Text Equipment Identifier Dates [place] M ri 8fr Plastic Polyurethane Implantable Infusion - [id number] Start: 06-08-2020 [place] occcluder FDA Start: 09-10-2024 [place] occcluder FDA Start: 09-10-2024 [place] occcluder FDA Start: 09-10-2024 [id number] Start: 11-25-2024 [place] occcluder FDA Start: 09-10-2024 [place] occcluder FDA Start: 09-10-2024 [place] occcluder FDA Start: 09-10-2024 [place] occcluder FDA Start: 09-10-2024 [place] occcluder FDA Start: 09-10-2024 Goals Date Patient Goal Desired Activity /State Personal health goal Functional Status Date Assessment Result Facility 09-30-2024 Are you deaf, or do you have serious difficulty hearing No 09/30/2024 4:43 PM Trey Morley RN No [facility] 09-30-2024 Are you blind, or do you have serious difficulty seeing, even when wearing glasses No 09/30/2024 4:43 PM Trey Morley RN No [facility] 09-30-2024 Do you have serious difficulty walking or climbing stairs No 09/30/2024 4:43 PM Trey Morley RN No [facility] 09-30-2024 Do you have difficul ty dressing or bathing No 09/30/2024 4:43 PM Trey Morley RN No [facility] 09-30-2024 Because of a physica l, mental, or emotional condition, do you have difficulty doing errands alone such as visiting a physician's office or shopping No 09/30/2024 4:43 PM Trey Morley RN No [facility] Mental Status Date Assessment Result Facility 04-04-2025 Cognitive function Voice/Name [facility] Work Phone: 09-30-2024 Because of a physica l, mental, or emotional condition, do you have serious difficulty concentrating, remembering, or making decisions No 09/30/2024 4:43 PM Trey Morley RN No [facility] 12-12-2023 Cognitive function Level Of Cons ciousness Awake;Alert;Appropriate [facility] Work Phone: 12-03-2023 Cognitive function Level Of Cons ciousness Awake;Alert [facility] Work Phone: 12-03-2023 Cognitive function Voice/Name [facility] Work Phone: 05-21-2022 Cognitive function Voice/Name [facility] Work Phone: 01-21-2022 Cognitive function Level Of Cons ciousness Awake;Alert;Appropriate;Fol lows Commands [facility] Work Phone: Clinical Notes 04-11-2021 to 04-07-2025 Sariah Palomo LPN - 04/07/2025 10:06 AM EDTGjuliusJarred GISELA Burrows - 04/07/2025 9:54 AM EDT Note Date & Type Note Facility 04-07-2025 Note [facility] 04-07-2025 History of Present illness Narrative Prepared [...] sensation intact at all pedal sites via [place] Zee 5.07 monofilament bilateral. Derm: Skin texture [...] these instructions. Informed Consent Consent Obtained: Verbal [place] Protocol SIGN IN Patient/Surrogate Stated/Verified: Patient name TIME OUT Correct side/site marked and visible. Medications required for procedure verified. SIGN OUT The post-procedure POC has been communicated to the patient or surrogate. Clinician Attestation Statement: The information in this document, created by the medical orderly for me, accurately reflects the services I personally performed and the decisions made by me. I have reviewed and approved this document for accuracy. Jarred Suh DPM, FACFAS documented in this encounter [facility] 04-07-2025 Note [facility] 04-04-2025 Discharge summary [facility] 03-10-2025 Evaluation note Diagnosis Onset Date Resolution Left knee DJD acute March 10, 2025 1:40pm Acute pericarditis acute February 172024 11:07am Atrial fibrillation with RVR acute March 12, 2025 11:07am Chest pain acute April 08, 2 025 9:19am Anxiety acute April 13, 2 025 3:02pm Essential (primary) hypertension chronic April 13 3:02pm [facility] Work Phone: 1(220) 552-937707-23-2025 NoteHNO ID: [id number] Author: RANDA OLEARY MA Service: ? Author Type: [place]eterie Table Assembler Type: Progress Notes Filed: 03/11/2025 13:58 Note Text: PT fit for a Med Night Splint. PT advised on application and care of splint. [facility]07-23-2025 History of Present illness Narrative* Randa Oleary [...] sensation intact at all pedal sites via [place] Zee 5.07 monofilament bilateral. Derm: Skin texture [...] off the plantar aspect posterior calcaneal tuberosity. Emergency Specialist: RODO ... ASSESSMENT: This is a 69 [...] Jarred Suh DPM, FACFAS documented in [facility]07[facility]25 [facility]25 Telephone encounter Note* Telephone Encounter - Annie Gipson - 03/08/2025 10:48 AM EDT I spoke with the patient and scheduled an appointment. Annie Gipson [facility]07-21-2025 Miscellaneous Notes* Telephone Encounter - Annie [...] which facility was the patient seen at: [facility] Was an appointment scheduled (Y/N): no Person calling if other than patient: no Return call to if other than patient: no Best contact number: [phone] Thank you, Eddie Fritz March 08, 2025 9:20 AM documented in [facility] encounterOhio [facility]2025 Telephone encounter Note * Telephone Encounter [...] which facility was the patient seen at: [facility] Was an appointment scheduled (Y/N): no Person calling if other than patient: no Return call to if other than patient: no Best contact number: [phone] Thank you, Eddie Fritz March 08, 2025 9:20 AM [facility]05-13-2025 Telephone encounter Note* Telephone Encounter - Mary Boothe RN - 12/29/2024 11:13 AM EDT Telephone encounter regarding clearance was sent to Dr. Gorman. Mary Boothe RN [facility]05-13-2025 Miscellaneous Notes* Telephone Encounter - Mary Boothe RN - 12/29/2024 11:13 AM EDT Telephone encounter regarding clearance was sent to Dr. Gorman. Mary Boothe RN documented in this encounterOhio [facility]05-02-2025 Telephone encounter Note * Telephone Encounter - Yazmin Maravilla RN - 12/18/2024 7:55 AM EDT Clearance form to hold Eliquis received from Dr Alex ANDREW. Form placed in Dr. Gorman's door box. Yazmin Maravilla RN [facility]05-02-2025 Miscellaneous Notes* Telephone Encounter - Yazmin Maravilla RN - 12/18/2024 7:55 AM EDT Clearance form to hold Eliquis received from Dr Alex ANDREW. Form placed in Dr. Gorman's door box. Yazmin Maravilla, RN documented in this encounterOhio [facility] Hospital04-28-2025 Evaluation note* Diagnosis Onset Date Resolution [...] knee DJD acute March 10, 2025 1:40pm [facility] [employer] Work Phone: 1(384) [phone] Evaluation note* Diagnosis Onset Date Resolution Status [...] with RVR acute March 12, 2025 11:07am [facility] Work Phone: 1(141) 344-700504-23-2025 [facility]04-23-2025 History of Present illness Narrative* Christy Luna APRN.CNP - 12/09/2024 4:02 PM EDT Reviewed, continue with current plan of care. Will have office staff arrange annual follow-up with Dr. Gorman or STEPHANIE. Christy Luna APRN.DRAW PRESS OPERATOR * Jeanna Pickens RN - 12/09/2024 10:49 [...] fever. Jeanna Pickens RN documented in this encounterOhio [facility] Hospital04-23-2025 [facility]03-21-2025 Telephone encounter Note* Telephone Encounter - Yazmin Maravilla RN - 11/06/2024 1:12 PM EDT Pt's name has been added to hollis procedure board. Yazmin Maravilla RN [facility]03-21-2025 Miscellaneous Notes* Telephone Encounter - Yazmin [...] verbalized understanding. Alondra Hauser documented in this encounterOhio [facility] Hospital03-21-2025 Telephone encounter Note * Telephone Encounter [...] stated above. Patient verbalized understanding. Alondra Hauser [facility]03-19-2025 [facility]03-19-2025 History of Present illness Narrative* Francisco Gorman MD - 11/04/2024 3:29 PM EDT Images from the original note were not included. [facility] SECTION OF CARDIAC PACING and ELECTROPHYSIOLOGY OUTPATIENT VISIT DATE November 04, 2024 OUTPATIENT VISIT TYPE ESTABLISHED PRIMARY CARE PHYSICIAN: Loan Dias (Debra) [address] [facility] [address] [place] [address] HISTORY OF PRESENT ILLNESS: 69 year-old female [...] recorder will also assist in deciding whether telecommunicator anticoagulation is necessary - SURGICAL REQUEST - ELECTIVE (03/2020) 2. Sinus bradycardia - ICD9: 427.89, ICD10: R00.1 - SURGICAL REQUEST - ELECTIVE (03/2020) Francisco Gorman MD CONTACT INFORMATION: Francisco Gorman MD documented in this encounterOhio [facility] Hospital03-15-2025 Radiology Diagnostic study note [facility] Imaging Services [address] [place] [address] Abdomen Limited MR#: [id number] Acct: [id number] Name: BO JACOB Rep #: [id number] : 1955 F 69 From: Omar Perez DO PCP: KEYA Reaves Status: REG CLI Study:Abdomen Limited Date of Exam: 10/17 01/10 Exam# [id number] Ordering Dr: Antonia Escalante MD PROCEDURE: ABDOMEN [...] KEYA Dias; Dr. 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 This [...] Follow-up in 6 months Smith Tidwell MD Adult Basic Education Teacher of Internal Medicine [facility] Regional Section of Interventional Cardiology Check Out Clerk of Structural Heart Disease [address], [address] [place] [id number] Facsimile: [phone] Email: [email or web address] documented in this encounterOhio State East Hospital03-12-2025 [facility]03-10-2025 Telephone encounter Note* Telephone Encounter - Jeanna Pickens RN - 10/26/2024 11:51 AM EDT Mayo from {[facility] called in with abnormal Holter alert: Pt experienced fainting on 10/01 at 8:30 am. He will fax report and states it has been uploaded to portal. Jeanna Pickens RN [facility]03-10-2025 Miscellaneous Notes* Telephone Encounter - Jeanna Pickens RN - 10/26/2024 11:51 AM EDT Mayo from {[facility] called in with abnormal Holter alert: Pt experienced fainting on 10/01 at 8:30 am. He will fax report and states it has been uploaded to portal. Jeanna Pickens RN documented in this encounterOhio State [facility] Hospital02-14-2025 Telephone encounter Note * Telephone Encounter - Jeanna Pickens RN - 10/02/2024 10:30 AM EST Called and spoke with Travis to relay Maddison's recommendations. She states pt is taking amiodarone as specified by Maddison until she follows up with Dr. Gorman. She reports Bo is doing better this morning. Jeanna Pickens RN [facility]02-14-2025 Miscellaneous Notes* Telephone Encounter - Jeanna [...] original note were not included. Shyam Acevedo APRN.DRAW PRESS OPERATOR You16 hours ago (4:22 PM) DL Covering for Maddison Luna CNP. Patient was discharged from the hospital 09/30/2024 on amiodarone 400 mg daily x 14 days to be followed by 200 mg daily thereafter in addition to diltiazem CD 360 mg dailyas well as Eliquis 5 mg twice daily. Patient was hooked up to 14-day extended telephone collector. If patient has had syncopal or near [...] 01, 2024 9:33 AM documented in this encounterOhio State East Hospital02-14-2025 Telephone encounter Note * Telephone Encounter - Christy Luna APRN.ARELY - 10/02/2024 10:25 AM EST Agree with the recommendations. She should be taking amiodarone 400 mg daily x 14 days (from hospital discharge) with subsequent reduction to 200 mg daily until she follows up with Dr. Gorman. Christy Luna APRN.ARELY [facility]02-14-2025 Telephone encounter Note* Telephone Encounter - Yazmin [...] for syncope. Yazmin Maravilla RN [facility]02-14-2025 Telephone encounter Note* Telephone Encounter - Yazmin Maravilla RN - 10/02/2024 8:37 AM EST Images from the original note were not included. Shyam Acevedo APRN.DRAW PRESS OPERATOR You16 hours ago (4:22 PM) DL Covering for Maddison Luna CNP. Patient was discharged from the hospital 09/30/2024 on amiodarone 400 mg daily x 14 days to be followed by 200 mg daily thereafter in addition to diltiazem CD 360 mg dailyas well as Eliquis 5 mg twice daily. Patient was hooked up to 14-day extended telephone collector. If patient has had syncopal or near [...] October 01, 2024 4:21 PM [facility]02-13-2025 Telephone encounter Note* Telephone Encounter - Yazmin Maravilla RN - 10/01/2024 1:30 PM EST Daughter Travis who is a nurse calls to report pt is feeling better. She reports by noon pt's HR back up to 70s bpm and BP 117/70 mmHg. She reports she gave her mother her diltiazem. She reports evenafter diltiazem HR remains in the 70s bpm. Yazmin Maravilla, RN [facility]02-13-2025 Telephone encounter Note* Telephone Encounter - [...] Ag LPN October 01, 2024 9:33 AM [facility]02-12-2025 [facility]02-12-2025 [facility]02-12-2025 [facility]02-12-2025 Telephone encounter Note* Telephone Encounter - Alondra Hauser - 09/30/2024 3:23 PM EST Follow up(s) scheduled. Patient to be notified upon discharge. Alondra Hauser [facility]02-12-2025 Miscellaneous Notes* Telephone Encounter - Alondra [...] you. Christy Luna APRN.ARELY documented in this encounterOhio State East Hospital02-12-2025 Telephone encounter Note * Telephone Encounter [...] discharged today. Thank you. Christy Luna APRN.CNP [facility]02-12-2025 Telephone encounter Note* Telephone Encounter - Lexa Lew - 09/30/2024 1:26 PM EST Spoke to patient and scheduled 1mo PFO Closure follow up for 10/28/24 at 10:20 AM. Lexa Alcocer [facility]02-12-2025 Miscellaneous Notes* Telephone Encounter - Lexa Lew - 09/30/2024 1:26 PM EST Spoke to patient and scheduled 1mo PFO Closure follow up for 10/28/24 at 10:20 AM. Lexa Alcocer * Telephone Encounter - Vandana Goldstein APRN.CNP - 09/30/2024 1:04 PM EST Please schedule patient to see Dr. Tidwell in 1 month for PFO Closure follow up. Vandana Goldstein APRN.CNP documented in this encounterOhio State East Hospital02-12-2025 Telephone encounter Note * Telephone Encounter - Vandana Goldstein APRN.CNP - 09/30/2024 1:04 PM EST Please schedule patient to see Dr. Tidwell in 1 month for PFO Closure follow up. Vandana Goldstein APRN.CNP [facility]02-11-2025 [facility]2025 Note [facility]02-10-2025 [facility] 09-27-2024 [facility]2025 [facility]09[facility]2025 [facility]08[facility]2025 [facility]25 [facility]08[facility]2025 [facility]08-2025 [facility]-08-2025 Note [facility]02-08-2025 NoteHNO ID: [id number] Author: NOTE, INTERFACE, ? Service: ? Author Type: ? Type: Progress Notes Filed: 09/26/2024 02:48 Note Text: Epic Scheduled Downtime: 09/26/2024 1:00:00 AM to 09/26/2024 2:36:00 [facility] Telephone encounter Note* Telephone Encounter - Ilda Easton LPN - 09/23/2024 4:21 PM EST Images from the original note were not included. Smith Lopez MD You5 minutes ago (4:16 PM) Talked to patient over the phone and addressed all of her concerns. Smith Alcocer [facility]02-05-2025 Miscellaneous Notes* Telephone Encounter - Ilda [...] house. Patient is planning on going to [place] on 09/24/2024 and wants to make sure [...] will affect her ability to travel to [place] on 09/24/2024 for 4 days. Patient is [...] 06/24/2024. Ilda Easton LPN documented in this encounterOhio State [facility] Hospital02-05-2025 Telephone encounter Note * Telephone Encounter - Ilda Easton LPN - 09/23/2024 12:06 PM EST Ms. Jacob is calling stating she went to the emergency room on 09/22/2024 to be evaluated. Patient was evaluated but is still experiencing chest pain with walking around her house. Patient is planning on going to [place] on 09/24/2024 and wants to make sure she is still able to go. Ilda Easton LPN [facility]02-04-2025 Telephone encounter Note* Telephone Encounter - Jeanna [...] considered normal. Jeanna Pickens RN [facility]02-04-2025 Telephone encounter Note* Telephone Encounter - Mary Boothe RN - 09/22/2024 2:00 PM EST Pts daughter called the office. Daughter states that they called a squad and went to the ED. Daughter wanted Dr. Lopez to be aware. Mary Boothe RN [facility]02-04-2025 Telephone encounter Note* Telephone Encounter - Ilda [...] will affect her ability to travel to [place] on 09/24/2024 for 4 days. Patient is asking for instructions at this time based on symptoms. Ilda Easton LPN [facility]02-04-2025 Telephone encounter Note* Telephone Encounter - Ilda Easton LPN - 09/22/2024 9:25 AM EST Ms. Jacob is calling in stating she was told to try to follow up with Dr. Lopez after 1 month from her PFO closure. Is patient to be scheduled for this follow up or the 6 month follow up from appointment on 06/24/2024. Ilda Easton LPN [facility]01-23-2025 Progress note* Allied Health - Chantel Lynn [...] (Walker, Cane, Wheelchair, Crutches, etc.)? [facility]patient[facility] PATIENT GENDER DATA: Assigned female at . status: : No status:NO. PATIENT RELEVANT IMPLANT DATA REVIEWED: Not Applicable PATIENT PRESENTS WITH AN IMPLANTABLE OR ATTACHED MOISTURE METER OPERATOR: No RADIOLOGY DEPARTMENT: General X-ray: Exam(s) Completed: Chest X-Ray PERIPHERAL IV DATA: Not applicable SIGNED BY: RT Adriana(Jasbir) September 10, 2024 1:21 PM [facility]01-23-2025 Miscellaneous Notes* Allied Health - Chantel Lynn [...] (Walker, Cane, Wheelchair, Crutches, etc.)? Inpatient: [facility] PATIENT GENDER DATA: Assigned female at . status: : No status:NO. PATIENT RELEVANT IMPLANT DATA REVIEWED: Not Applicable PATIENT PRESENTS WITH AN IMPLANTABLE OR ATTACHED MOISTURE METER OPERATOR: No RADIOLOGY DEPARTMENT: General X-ray: Exam(s) Completed: Chest X-Ray PERIPHERAL IV DATA: Not applicable SIGNED BY: RT Adriana(R) September 10, 2024 1:21 PM documented in this encounterOhio State East Hospital01-23-2025 Surgery Surgical operation note* Operative Report - Smith Lopez MD - 09/10/2024 11:06 AM EST PROCEDURE: Intracardiac Echocardiography PFO Closure with a 30mm [place] Cardioform septal occluder Name: Bo Jacob Date: September 10, 2024 STAFF PHYSICIAN: Dr. Smith Tidwell MD ACCESS: 11F RFV superior access, 11F RFV inferior Access DEVICE: 30mm [place] Cardioform septal occluder device DETAILS OF PROCEDURE: [...] no issues with ambulation Smith Tidwell MD Adult Basic Education Teacher of Internal Medicine [facility] Section of Interventional Cardiology Check Out Clerk of Structural Heart Disease [address], [address] [place] [address] Facsimile: [phone] Email: [email or web address] [facility]01-23-2025 Surgical operation note* Operative Report - Smith Lopez MD - 09/10/2024 11:06 AM EST PROCEDURE: Intracardiac Echocardiography PFO Closure with a 30mm [place] Cardioform septal occluder Name: Bo Jacob Date: September 10, 2024 STAFF PHYSICIAN: Dr. Smith Tidwell MD ACCESS: 11F RFV superior access, 11F RFV inferior Access DEVICE: 30mm [place] Cardioform septal occluder device DETAILS OF PROCEDURE: [...] no issues with ambulation Smith Tidwell MD Adult Basic Education Teacher of Internal Medicine [facility] Section of Interventional Cardiology Check Out Clerk of Structural Heart Disease [place] [address] Facsimile: [phone] Email: [email or web address] documented in this encounterOhio State East Hospital01-14-2025 Telephone encounter Note * Telephone Encounter - Jeanna Pickens RN - 09/01/2024 9:59 AM EST Bo Jacob called in to inquire about next steps in scheduling the PFO procedure. She recalls from [facility] that she was told she would be a good candidate for procedure. Jeanna Pickens RN [facility]01-14-2025 Miscellaneous Notes* Telephone Encounter - Jeanna [...] 08/05/24. Grace Ag MA documented in this encounterOhio State East Hospital01-13-2025 Evaluation note* Diagnosis Onset Date Resolution [...] right female breast chronic [facility] Phone: [phone] Telephone encounter Note* Telephone Encounter - Grace Ag MA - 08/17/2024 1:03 PM EST Patient under the understanding she needs another produce, that will close the whole in her heart. She would like a call back with clarification , patient stated she is not clear what the surgery is called due to being sleepy after surgery on 08/05/24. Grace Ag MA [facility]12-10-2024 Telephone encounter Note* Telephone Encounter - Alondra Hauser - 07/28/2024 8:55 AM EST Patient is scheduled for a BLACK on 08/05. The hospital will call the day before between 2-5pm with your arrival time. You should not eat or drink after midnight the day before the procedure. You will need a retail delivery driver when released from the hospital. You should continue to take medications as prescribed the morning of the procedure with just a sip of water unless otherwise instructed. Spoke with Bo Jacob on July 28, 2024. Informed of instructions as stated above. Patient verbalized understanding. Alondra Hauser [facility]12-10-2024 Miscellaneous Notes* Telephone Encounter - Alondra Hauser - 07/28/2024 8:55 AM EST Patient is scheduled for a BLACK on 08/05. The hospital will call the day before between 2-5pm with your arrival time. You should not eat or drink after midnight the day before the procedure. You will need a retail delivery driver when released from the hospital. You should continue to take medications as prescribed the morning of the procedure with just a sip of water unless otherwise instructed. Spoke with Bo Jacob on July 28, 2024. Informed of instructions as stated above. Patient verbalized understanding. Alondra Hauser documented in this encounterOhio State East Hospital12-09-2024 Instructions* Patient Instructions* Mikula, Ling, JEWELRY JOBBER.ARELY - 07/27/2024 10:55 AM EST Images from the original note were not included. Regarding your visit with Nurse Practitioner Ling Harding today at the [facility] we discussed the following: [...] Ling Harding CNP [facility]erebro[facility] Center Nurse Practitioner [place], [place] [address] Office: [phone] Appointments: [phone] Stroke Signs and Symptoms: *Stroke is a [...] of these signs, don't delay! Immediately call [phone], orthe emergency medical services (EMS) number so [...] DASH-style diet rich in fruits and vegetables (https://www.nhlbi.nih.gov/education/qrjz-aevwbq-khhs) Consider Mediterranean diet supplemented with nuts Smoking [...] of an exercise program by a health personal care worker such as a physical therapist or cardiac [...] for their cardiovascular health Adapted from the [place] Heart Association/[place]ominican Stroke Association: 2021 Guideline for the Prevention of Stroke in Patients With Stroke and Transient Ischemic Attack documented in this encounterOhio State East Hospital12-09-2024 [facility]2024 History of Present illness Narrative* Ling Harding APRN.CNP - 07/27/2024 10:09 AM EST [facility] Established Visit PCP: Loan Magana) [address] [facility] [address] [place] [address] CEREBROVASCULAR HISTORY Bo Jacob is a 68 [...] tremor. Sensation: Grossly intact light touch. Coordination: Exdztr-zo-dnjy without dysmetria bilaterally. Gait: Ambulates easily into [...] (CCF-MODIFIED): Embolic Stroke of Unknown Source Modified [place] Score: Score: 0 IMPRESSION Subacute right MCA [...] which included preparing to see the patient, ljxv-fq-lvgj patient care, completing clinical documentation, obtaining and/or reviewing separately obtained history, performing a medically appropriate examination, counseling and educating the patient/family/caregiver, independently interpreting results (not separately reported), and communicating results to the patient/family/caregiver SIGNATURE Ling Harding APRN.ARELY 07/27/2024 documented in this encounterOhio State East Hospital12-06-2024 Telephone encounter Note * Telephone Encounter [...] Thanks Cecily Guerrero MD, FACP, FAC Cardiovascular Java Software ArchitectAppeals Coordinatoroxidized finish plater [facility] Pager: [phone] [facility]12-06-2024 Miscellaneous Notes* Telephone Encounter - Yazmin [...] Thanks Cecily Guerrero MD, FACP, FAC Cardiovascular Java Software ArchitectAppeals Coordinatoroxidized finish plater [facility] Pager: [phone] * Telephone Encounter - Yazmin Maravilla RN - 07/22/2024 8:13 AM EST Pt asks if there is anything she should be doing to get BLACK with anesthesia scheduled? Yazmin Maravilla RN documented in this encounterOhio State East Hospital12-04-2024 Telephone encounter Note * Telephone Encounter - Yazmin Maravilla RN - 07/22/2024 8:13 AM EST Pt asks if there is anything she should be doing to get BLACK with anesthesia scheduled? Yazmin Maravilla RN [facility]11-20-2024 Telephone encounter Note* Telephone Encounter - Marjan Acosta RN - 07/08/2024 11:25 AM EST MODIFIED JOSE SCORE POST-DISCHARGE Telephone Visit Patient Name: Bo Jacob Today's date: July 08, 2024 Date of discharge: April 23, 2024 Person giving information: Bo Jacob. Relationship to patient: Self. Contact information: [phone] Contact attempt: #1 Patient discharge location: Home Patient current location: Home Presentation to ED or readmission after discharge: No Modified [place] Score: 90 days post discharge: 0 = No symptoms at all. Mortality: No Bo states that she has no residual effects from the stroke whatsoever. She is driving and independent with all activities of daily living. Signature: Marjan Acosta RN July 08, 2024 11:25 AM [facility]11-20-2024 Miscellaneous Notes* Telephone Encounter - Marjan Acosta RN - 07/08/2024 11:25 AM EST MODIFIED JOSE SCORE POST-DISCHARGE Telephone Visit Patient Name: Bo Jacob Today's date: July 08, 2024 Date of discharge: April 23, 2024 Person giving information: Bo Jacob. Relationship to patient: Self. Contact information: [phone] Contact attempt: #1 Patient discharge location: Home Patient current location: Home Presentation to ED or readmission after discharge: No Modified [place] Score: 90 days post discharge: 0 = No symptoms at all. Mortality: No Bo states that she has no residual effects from the stroke whatsoever. She is driving and independent with all activities of daily living. Signature: Marjan Acosta RN July 08, 2024 11:25 AM documented in this encounterOhio State East Hospital11-12-2024 Telephone encounter Note * Telephone Encounter - Lisa Chau - 06/30/2024 3:44 PM EST Clearance scanned in from surgical associates placed in Dr. Diann hansen to be reviewed. Lisa Chau June 30, 2024 3:44 PM [facility]11-12-2024 Miscellaneous Notes* Telephone Encounter - Lisa Chau - 06/30/2024 3:44 PM EST Clearance scanned in from surgical associates placed in Dr. Diann hansen to be reviewed. Lisa Chau June 30, 2024 3:44 PM documented in this encounterOhio State East Hospital11-08-2024 Telephone encounter Note * Telephone Encounter - Alondra Hauser - 06/26/2024 10:49 AM EST Patient is scheduled for a BLACK on 07/20. The hospital will call the day before between 2-5pm with your arrival time. You should not eat or drink after midnight the day before the procedure. You will need a retail delivery driver when released from the hospital. You should continue to take medications as prescribed the morning of the procedure with just a sip of water unless otherwise instructed. Spoke with Bo Jacob on June 26, 2024. Informed of instructions as stated above. Patientverbalized understanding. Alondra Hauser [facility]11-08-2024 Miscellaneous Notes* Telephone Encounter - Alondra Hauser - 06/26/2024 10:49 AM EST Patient is scheduled for a BLACK on 07/20. The hospital will call the day before between 2-5pm with your arrival time. You should not eat or drink after midnight the day before the procedure. You will need a retail delivery driver when released from the hospital. You should continue to take medications as prescribed the morning of the procedure with just a sip of water unless otherwise instructed. Spoke with Bo Jacob on June 26, 2024. Informed of instructions as stated above. Patientverbalized understanding. Alondra Hauser documented in this encounterOhio State East Hospital11-06-2024 [facility]-06-2024 History of Present illness Narrative* Smith Lopez MD - 06/24/2024 10:51 AM EST Chief Complaint: Patient presents with: CARD New Patient Consult: SENIOR QUALITY ASSURANCE ENGINEER REF FOR PFO Bo Jacob is a [...] Follow-up in 6 months Smith Tidwell MD Adult Basic Education Teacher of Internal Medicine [facility] Section of Interventional Cardiology Check Out Clerk of Structural Heart Disease [address], [address] [place], [place] [address] Facsimile: [phone] Email: [email or web address] documented in this encounterOhio State East Hospital11-06-2024 Nurse Note* Lashawn Hilliard MA - 06/24/2024 10:09 AM EST Patient denies any cardiac issues or symptoms. [facility]11-06-2024 Nurse Note* Lashawn Hilliard MA - 06/24/2024 10:09 AM EST Patient denies any cardiac issues or symptoms. documented in this encounterOhio State East Hospital10-22-2024 Instructions* Patient Instructions* Ling Harding APRN.CNP - 06/09/2024 2:08 PM EDT Images from the original note were not included. Regarding your visit with Nurse Practitioner Ling Harding today at the [facility] we discussed the following: PLAN Stop aspirin Continue clopidogrel (Plavix) daily. Refills sent to pharmacy Follow up with cardiology as planned. Consider long-term event monitor if PFO closure not indicated. Ling Harding CNP [facility]bro[facility] Center Nurse Practitioner [place], [place] [address] Office: [phone] Appointments: [phone] Stroke Signs and Symptoms: *Stroke is a [...] DASH-style diet rich in fruits and vegetables (https://www.nhlbi.nih.gov/education/donv-ctktop-iidn) Consider Mediterranean diet supplemented with nuts Smoking [...] of an exercise program by a health personal care worker such as a physical therapist or cardiac [...] for their cardiovascular health Adapted from the [place] Heart Association/Dominican Stroke Association: 2021 Guideline for the Prevention of Stroke in Patients With Stroke and Transient Ischemic Attack documented in this encounterOhio State East Hospital10-22-2024 History of Present illness Narrative* Ling Harding APRN.CNP - 06/09/2024 1:30 PM EDT [facility] Established Visit PCP: Loan Dias (Debra) [address] [address] CEREBROVASCULAR HISTORY Bo Jacob is a 68 [...] ICU, she was later transferred to the [facility] ECHO was obtained and she was found [...] tremor. Sensation: Grossly intact light touch. Coordination: Ahznrj-nj-tvti without dysmetria bilaterally. Gait: Ambulates easily into [...] which included preparing to see the patient, olpc-bo-hgzc patient care, completing clinical documentation, obtaining and/or reviewing separately obtained history, performing a medically appropriate examination, counseling and educating the patient/family/caregiver, independently interpreting results (not separately reported), and communicating results to the patient/family/caregiver SIGNATURE Ling Harding APRN.ARELY 06/09/2024 documented in this encounterOhio State East Hospital10-22-2024 [facility]09-11-2024 Telephone encounter Note* Telephone Encounter - Marjan Acosta RN - 04/29/2024 1:16 PM EDT STROKE POST-DISCHARGE CALLBACK Telephone Visit Patient Name: oB Jacob Today's date: April 29, 2024 Date of discharge: April 23, 2024 Person giving information: Bo Jacob. Relationship to patient: self. Contact information: [phone] Contact attempt: #1 Patient discharge location: home [...] I also talked with her about the converting supervisor that she is wearing and how that [...] primary care provider as well as her operation supervisor. 4.Follow ups. Bo says she is seeing her primary care provider today, and has an appointment soon with her operation supervisor. She also has an appointment to see Dr. Tidwell about her PFO in June. She was not aware that an appointment had been scheduled for her with stroke neurology clinic. I provided her the details of the appointment, which she appreciated. She denies transportation needs. Signature: Marjan Acosta RN April 29, 2024 1:16 PM [facility]09-11-2024 Miscellaneous Notes* Telephone Encounter - Marjan Acosta RN - 04/29/2024 1:16 PM EDT STROKE POST-DISCHARGE CALLBACK Telephone Visit Patient Name: Bo Jacob Today's date: April 29, 2024 Date of discharge: April 23, 2024 Person giving information: Bo Jacob. Relationship to patient: self. Contact information: [phone] Contact attempt: #1 Patient discharge location: home [...] I also talked with her about the converting supervisor that she is wearing and how that [...] primary care provider as well as her operation supervisor. 4.Follow ups. Bo says she is seeing her primary care provider today, and has an appointment soon with her operation supervisor. She also has an appointment to see Dr. Tidwell about her PFO in June. She was not aware that an appointment had been scheduled for her with stroke neurology clinic. I provided her the details of the appointment, which she appreciated. She denies transportation needs. Signature: Marjan Acosta RN April 29, 2024 1:16 PM documented in this encounterOhio State East Hospital09-04-2024 [facility]09-03-2024 [facility]2024 [facility]-2024 [facility]2024 [facility]2024 [facility]2024 Note HNO ID: [id number] Author: CRUZ WILKINS MD Service: ? Author Type: Physician Type: Progress Notes Filed: 04/19/2024 15:50 Note Text: TELESTROKE DOCUMENTATION Name: Bo Jacob : 1955 Referring Site: [facility] Referring Provider: Dr Garcia Last Known [...] a telestroke. Thank you for contacting the [facility]. I appreciate the opportunity for allowing me to participate in Bo Jennifer Jacob's care. Please feel free to contact me and/or the [facility] at any time if you have any further questions or need additional assistance. Cruz Wilkins MD April 19, 2024 3:28 [facility]09-01-2024 History of Present illness Narrative* Cruz Wilkins MD - 04/19/2024 3:10 PM EDT TELESTROKE DOCUMENTATION Name: Bo Jacob : 1955 Referring Site: [facility] Referring Provider: Dr Jose Last Known [...] a telestroke. Thank you for contacting the [facility]. I appreciate the opportunity for allowing me to participate in Bo Jacob's care. Please feel free to contact me and/or the [facility] at any time if you have any further questions or need additional assistance. Cruz Wilkins MD April 19, 2024 3:28 PM documented in this encounterOhio State East Hospital04-16-2024 Discharge summary Author Raymond Lagos [facility] December 03, 2023 11:52am Note Date/Time December 03, 2023 11: 48am [facility] Medical Records Department [address] [place] [address] Instructions for Home/Discharge Instructions 12/03/23 1148 MR#: [id number] Acct: [id number] Name: BO JACOB Rep #:[id number] : 1955 68 From: Raymond Lagos DO PCP: Dr. Ashley Luna MD Status:REG [facility] Discharge Instructions Diet Discharge Diet: No restrictions [...] 25 mg PO DAILY Qty: 30 11RF pwmhqsjogirg-bfri-shczb acid 1 EACH tablet 1 ea PO [...] CC: Dr. Ashley Luna MD ~ Signed [facility] Work Phone: [phone] History and physical note Author Raymond [facility] December 03, 2023 9:57am Note Date/Time December 03, 2023 9:5 7am [facility] Medical Records Department [address] [place] [address] History & Physical Exam 12/03/23 0956 MR#: [id number] Acct: [id number] Name: BO JACOB Rep #:[id number] : 1955 68 From: Raymond Lagos DO PCP: Dr. Ashley Luna MD Status:REG [facility] Location: [facility]-1 History and Physical Date of Admission: 12/03/23 [facility] [address] [place] [address] OFFICE VISIT Date of Service: 11/06/23 MR#: [id number] Acct: [id number] Name: BO JACOB Rep #: [id number] : 1955 Provider: Dr. Raymond Lagos DO Age/Sex: 68/F Location: [facility] Status: Signed Intake Vital Signs 09/23/2409:37 11/03/2410:12 [...] 1-2 times per week duration: 15-30 minutes/day frankie/buddhist: Non-Nondenominational/Independent seatbelt use: always do you feel safe at home: Yes HPI left knee Details: This documentation accurately reflects the service provided and the decisions made by me, Dr. Raymond Lagos, DO 11/06/23 9483. Part of today?s visit was documented by [...] Lagos DO; Dr. Ashley Luna MD~ Signed [facility] Work Phone: [phone] 562-162904-16-2024 Procedure [facility] 04-24-2021 NoteHNO ID: [id number] Author: Marisabel Kurtz RN Service: Care Management Author Type: Registered Nurse Type: Care Mgt Progress Note Filed: 04/24/2021 2:59 PM Note Text: CARE MANAGEMENT DISCHARGE NOTE SERVICE DATE: 04/24/2021 SERVICE TIME:2:57pm LOS: 13 days Admission Date: 04/11/2021 DISCHARGE ARRANGEMENT (list agency and phone number) Discharge Arrangement: [facility] facility Was an expedited discharge program used?: No Provider Name: [facility] Phone: [phone] CAREGIVER ASSESSMENT: HANDOFF COMMUNICATION: Handoff to: Primary Care Physician Primary Care Physician Name/Phone: routed TRANSPORTATION ARRANGEMENTS: Transportation Arrangements: Ambulance/[facility] and Phone #:: [facility] [phone] Date of Trip: 04/24/21 Time of Trip: 1600 Type of Service: BLS Non-emergency Is Patient Medicaid Pending?: No Discussion of financial coverage occurred with: Patient Hand Twister Location: [facility] Destination: [facility] Financial Care Management Responsibility: None ADDITIONAL CONTACT RESOURCES:avs dc summary Written discharge today per foc [facility] via cot 2L mmt at 4pm. Final dc order, avs dc summary, updated chart sent via [employer]. Facility willing to accept. Patient and dtr aware, no concerns voiced. Bedside rn will call report. SIGNATURE: Marisabel Kurtz RN PATIENT NAME: Bo Jacob DATE: April 24, 2021 TIME: 2:57 PM PAGER/CONTACT #: [phone] NoteHNO ID: [id number] Author: JUAN Bolivar Service: Care Management Author Type: Phys Assistant Type: Care Mgt Progress Note Filed: 04/23/2021 4:20 PM Note Text: CARE MANAGEMENT PROGRESS NOTE SERVICE DATE: 04/23/2021 SERVICE TIME: 4:19 PM LOS: 12 days Needs Prior to Discharge: Ready for Discharge Pt and family have discussed dc plan and the final choice is to transfer to [facility]. If pt stable for dc on 04/23 pt can be transported at 4:00. Cm will follow SIGNATURE: JUAN Bolivar PATIENT NAME: Bo Jacob DATE: April 23, 2021 TIME: 4:18 PM PAGER/CONTACT #: [phone] NoteHNO ID: [id number] Author: Ty Pulido MD Service: General Internal Medicine Author Type: Physician Type: Progress Notes Filed: 04/23/2021 5:18 PM Note Text: SUBJECTIVE Patient is down to 2 L on nasal cannula oxygen Daughter is at the bedside Patient is very eager to go back to [facility] does not have any beds Cough is [...] will have to consider rehab at the [facility] In any case we decided that the chances of patient going in meeting her in the ICU is very low given that she is positive and he is in the ICU Everyone is in agreement with this plan I discussed with the hospice social worker Plan of care discussed with: Provider, RN, Patient and Family/Significant Other: Daughter. This note was partially generated using a voice recognition software system and there may be some incorrect words, phrases, spellings or punctuation that were not noted in review before signing.[facility] 04-22-2021 NoteHNO ID: [id number] Author: Ty Pulido MD Service: General Internal [...] the hospital and spoke to the nursing quarry supervisor dimension stone and later spoke to the hospice social worker I had to conversation with the hospice social worker who tells me that the transition care unit/rehab does not have any beds. In the acute unit, the hospitalist was not willing to consider transfer and they are also very short on beds This message was conveyed to the patient We will continue to wean down the oxygen I will discussed with the hospice social worker about possibly transferring her to the [place] [facility] Plan of care discussed with: Provider, RN, Patient. This note was partially generated using a voice recognition software system and there may be some incorrect words, phrases, spellings or punctuation that were not noted in review before signing.[facility] 04-21-2021 NoteHNO ID: [id number] Author: Raymond Carmona PA-C Service: Pulmonary Disease Author Type: Physician Metal Base Blocker Type: Progress Notes Filed: 04/21/2021 12:51 PM [...] She would like to talk to a shell fisherman if possible. Otherwise, she feels like she [...] ORAL DAILY (6 AM) - phenol 1 Daisy (CHLORASEPTIC) 1 Daisy MUCOUS MEMBRANE (TOPICAL MOUTH AND THROAT) q 2 H PRN - sodium chloride 0.65 % 2 Daisy (AYR, OCEAN) 2 Daisy EACH NOSTRIL PRN EXAM BP 115/75 Pulse [...] hours) at 04/21/2021 1243 (more content not included)...[facility]09-03-2021 NoteHNO ID: [id number] Author: Ty Pulido MD Service: General Internal [...] exemestane ? PLAN PT and OT recommend [facility]ci facility We are waiting to try and see if he can bring down oxygen requirements and subsequently will consider [facility] facility She is finishing her Decadron course Reviewed all her medications Discussed with the nursing staff We will make attempts to wean down oxygen Plan of care discussed with: Provider, RN, Patient. This note was partially generated using a voice recognition software system and there may be some incorrect words, phrases, spellings or punctuation that were not noted in review before signing.[facility] 04-20-2021 NoteHNO ID: [id number] Author: Ty Pulido MD Service: General Internal [...] that were not noted in review before signing.[facility] 04-20-2021 NoteHNO ID: [id number] Author: Raymond Moscoso MD Service: Pulmonary Disease [...] ORAL DAILY (6 AM) - phenol 1 Daisy (CHLORASEPTIC) 1 Daisy MUCOUS MEMBRANE (TOPICAL MOUTH AND THROAT) q [...] to chair ? Stable for transfer to [facility], Dr Pulido to assume care on the floor ? Updated daughter Travis on the phone Raymond Moscoso MD April 20, 2021 9:50 [facility]09-01-2021 NoteHNO ID: [id number] Author: Raymond Moscoso MD Service: Pulmonary Disease [...] able, PT/OT ? Stable for transfer to [facility], will consult Dr Pulido to assume care. We will see her tomorrow on the floor ? Updated daughter Travis on the phone Raymond Moscoso MD April 19, 2021 10:06 [facility]08-31-2021 NoteHNO ID: [id number] Author: Raymond Moscoso MD Service: Pulmonary Disease [...] Raymond Moscoso MD April 18, 2021 9:19 AM[facility]-2021 NoteHNO ID: [id number] Author: Dina Manley APRN.[facility] Service: ? Author Type: Nurse Practitioner Type: Progress Notes Filed: 04/17/2021 1:54 PM Note Text: Clinical Indicators: 04/17/21 Nutrition Therapy Notes Nutrition Assessment: Recommended Malnutrition Diagnosis: Mild Protein-Calorie Malnutrition In the context of: Acute Illness or Injury Based on: Insufficient Energy Intake HPI: 65 year old F admitted for SOB / COVID PNA. PMHx significant for ER/IA positive, HER2 positive invasive ductal carcinoma in [...] to Determine Other, please specify Dina Manley APRN.[facility]08-30-2021 NoteHNO ID: [id number] Author: Raymond Moscoso MD Service: Pulmonary Disease [...] Raymond Moscoso MD April 17, 2021 9:27 [facility]08-29-2021 NoteHNO ID: [id number] Author: Ramirez Groves MD Service: Critical Care [...] spouse is critically ill and deteriorating at agency ICU. ICU Checklist Last Documented/Reviewed time: 04/16/2021 [...] Is Patient Clinically Ready to Transfer to [facility] or SDU?: No Discharge Planning: To be [...] Groves MD Pulmonary AND Critical Care Medicine [facility] [place] April 16, 2021 9:14 AM SUBJECTIVE INTERVAL [...] 6 mg (DECADRON) 6 (more content not included)...[facility]08-28-2021 NoteHNO ID: [id number] Author: Ramirez Groves MD Service: Critical Care [...] Groves MD Pulmonary AND Critical Care Medicine [facility] [place] April 15, 2021 9:53 AM SUBJECTIVE INTERVAL [...] PHYSICAL EXAM: Vital Sign (more content not included)...[facility]08-28-2021 NoteHNO ID: [id number] Author: Popeye Arzola MD Service: Hospital Medicine [...] 0700 to 1700 please page me at [phone]; - nights from 1700 to 0700 please page the Medical Head Waiter/Waitress Banquet at [phone] or the night coverage physician at [phone].[facility] 04-14-2021 NoteHNO ID: [id number] Author: Raisa Bueno RN Service: Care Management Author Type: Registered Nurse Type: Care Mgt Progress Note Filed: 04/14/2021 12:22 PM Note Text: CARE MANAGEMENT PROGRESS NOTE SERVICE DATE: 04/14/2021 SERVICE TIME: 0800 LOS: 3 days [place] of Choice Given: Yes Level of Care Discussed: [facility] Facility Provider List: (SNF choices reviewed with patient's daughter) Needs Prior to Discharge: Accepting Facility;To Be Determined;Bed Availability;Discharge Transportation Chart reviewed. Spoke with patient via room phone to discuss pt/ot evaluation: SNF. Patient agrees; aware snf choices limited due to +COVID. Call placed to patient's daughter to review snf choices as patient very sob(bedside RN notified) Preference: [facility]; referral sent. Facility can accept when patient medically stable on 4LNC O2 or less. Covid test within 72 hours of admission. Patient, Dr Castellon, bedside RN informed, VM left for patient's daughter to inform. SIGNATURE: Raisa Bueno RN PATIENT NAME: Bo Jacob DATE: April 14, 2021 TIME: 12:13 PM PAGER/CONTACT #: [phone] NoteHNO ID: [id number] Author: Sukumar Castellon MD Service: ? Author [...] 100 mg in NaCl 0.9% 250 mL Vial-Mate/ADD-Scroggins 100 mg INTRAVENOUS q 24 HR - [...] Above reviewed with the patients daughter Travis [phone] Arzola to assume care of patient as Attending physician effective 0700 04/15/21. SIGNATURE: Sukumar Castellon MD Date: 04/14/2021 Time: 8:33 AM Plan of care discussed with: Provider, RN, Patient. Total time caring/evaluating patient was 30 minutes.[facility]08-26-2021 NoteHNO ID: [id number] Author: Dina Manley APRN.[facility] Service: ? Author Type: Nurse Practitioner Type: [...] exercise Nutrition consultation as needed Dina Manley APRN.[facility]08-26-2021 NoteHNO ID: [id number] Author: Sukumar Castellon MD Service: ? Author [...] 100 mg in NaCl 0.9% 250 mL Vial-Mate/ADD-Scroggins 100 mg INTRAVENOUS q 24 HR - [...] Patient. Total time caring/evaluating patient was 30 minutes.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 Last discharge within 30 days: No Advance Directive: Current Advance Directive: Health Care Power of Fire Control Technician G In Chart: No Hydraulic Bull Riveter Operator Attempted to Assist with AD Completion: Yes [...] None Has the Patient Been in a [facility] Facility in the Past 30 days?: No [...] Psychosocial Needs: None FREEDOM OF CHOICE EXPLAINED: [place] of Choice Given: No Reason Not Given: Unable to complete with this assessment - revisit POTENTIAL TRANSITION PLANS Home Patient in ICU; awaiting transfer back to [facility]. Spoke with patient's daughter Travis. Patient admitted yesterday from [place] due to SOB. Spouse in ICU on ventilator. 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 Per daughter, patient very independent. CM to follow for discharge needs. SIGNATURE: Raisa Bueno RN PATIENT NAME: Bo Jacob DATE: April 12, 2021 TIME: 7:55 AM PAGER/CONTACT #: [phone] NoteHNO ID: [id number] Author: Sukumar Castellon MD Service: ? Author [...] 100 mg in NaCl 0.9% 250 mL Vial-Mate/ADD-Scroggins 100 mg INTRAVENOUS q 24 HR - [...] Patient. Total time caring/evaluating patient was 30 minutes.[facility]08-24-2021 NoteHNO ID: [id number] Author: Yazmin Greene APRN.CNP Service: Critical Care [...] Jacob DATE: April 11, 2021 TIME: 8:09 [facility]08-24-2021 NoteHNO ID: [id number] Author: Rolo Oates MD Service: Pulmonary Disease [...] in the 24 hours ending 04/11/21 1007 VACUUM SYSTEM TESTER (Renal Replacement Therapy): None Can Patient Receive [...] Signature: Rolo Oates Date: 04/11/2021 Time: 10:09 AM[facility]-24-2021 NoteHNO ID: [id number] Author: Akshat Julien RN Service: Nursing Author Type: Registered Nurse Type: Nursing Progress Note Filed: 04/15/2021 9:04 AM Note Text: AANDOx3 10 back and chest pain from coughing. Gave report to RESEARCH SUPPORT SPECIALIST, patient transferred.[facility]08-24-2021 NoteHNO ID: [id number] Author: Sukumar Castellon MD Service: ? Author [...] 100 mg in NaCl 0.9% 250 mL Vial-Mate/ADD-Scroggins 100 mg INTRAVENOUS q 24 HR - [...] Patient. Total time caring/evaluating patient was 30 minutes.[facility] Center[facility] summary Author Wu Augustine [facility] December 21, 2023 11:14am Note Date/Time December 21, 2023 10:44a m [facility] Medical Records Department [address] [place] [address] Emergency Department Summary 12/21/23 MR#: [id number] Acct: [id number] Name: BO JACOB Rep #:[id number] : 1955 68 From: Wu Augustine MD [...] Prior similar symptoms: No Recent [facility] Medical History Alcohol use Ambulates with cane [...] Reaction Status Date / Time acetaminophen [From [place]] Allergy Intermediate Rash Verified 12/21/23 10:27 adhesive tape Allergy Intermediate Hives Verified 12/21/23 10:26 hydrocodone [From [place]] Allergy Intermediate Rash Verified 12/21/23 10:27 oxycodone [...] 1-2 times per week duration: 15-30 minutes/day frankie/buddhist: Non-Nondenominational/Independent seatbelt use: always do you feel safe [...] 25 mg PO DAILY Qty: 30 11RF pqxjrusfkgkc-qzao-rgrev acid 1 EACH tablet 1 ea PO [...] Staff] - As Needed Loan Dias NP, SENIOR QUALITY ASSURANCE ENGINEER-C [Primary Care Provider] - As Needed Disposition Disposition: Home, Self Care What to do if you have Problems For any increased pain, shortness of breath, bleeding, nausea or vomiting, chestpain, or any unexpected problems, contact your Primary Care Provider. Call [facility] ([phone]) or report to the closest Emergency Room. Call 911 if necessary. 12/21/23 1114 <Electronically signed by Wu Augustine MD> Cosigner Signature (if applicable): CC: KEYA Dias ~ Signed [facility] Work Phone: Discharge summary Author Rob Guallpa [facility] Note Date/Time April 04, 2025 4: 01am [facility] Medical Records Department [address] [place] [address] Emergency Department Summary 04/04/25 MR#: [id number] Acct: [id number] Name: BO JACOB Rep #:[id number] : 1955 69 From: Rob Guallpa MD [...] and follows with cardiology here at the [place]. She states her operation supervisor thinks that the pressure she has been having has been chronic pericarditis. [facility] Medical History Pericardial effusion Atrial fibrillation with [...] 1-2 times per week duration: 15-30 minutes/day frankie/buddhist: Non-Nondenominational/Independent seatbelt use: always do you feel safe [...] % (Auto) 57.9 Lymph % (Auto) 29.4 [place] % (Auto) 6.6 Eos % (Auto) 4.5 [...] As soon as possible Loan Dias NP, SENIOR QUALITY ASSURANCE ENGINEER-C [Primary Care Provider] - Print Language: Paraguayan Disposition Disposition: Home, Self Care What to do if you have Problems For any increased pain, shortness of breath, bleeding, nausea or vomiting, chestpain, or any unexpected problems, contact your Primary Care Provider. Call [facility] ([phone]) or report to the closest Emergency Room. Call 911 if necessary. 04/04/25 0401 <Electronically signed by Rob Guallpa MD> Cosigner Signature (if applicable): CC: KEYA Dias ~ Signed [facility] Work Phone: Evaluation note* Diagnosis Onset Date [...] joint, left acute Essential (primary) hypertension chronic [facility] Work Phone: Evaluation note* Diagnosis Onset Date [...] resolved Screening for colon cancer a cute [facility] Work Phone: Evaluation note* Diagnosis Onset Date Resolution Status Breast cancer of lower-inner quadrant of right female breast chronic Musculoskeletal pain chronic Osteopenia chronic Breast cancer of lower-inner quadrant of right female breast chronic [facility] Work Phone: Evaluation note* Diagnosis Onset Date [...] Drug rash resolved Essential (primary) hypertension chronic [facility] Work Phone: Evaluation note* Diagnosis Onset Date [...] lower-inner quadrant of right female breast chronic [facility] Work Phone: Evaluation note* Diagnosis Onset Date Resolution Status Essential (primary) hypertension chronic Breast cancer of lower-inner quadrant of right female breast chronic Musculoskeletal pain chronic Osteopenia chronic Breast cancer of lower-inner quadrant of right female breast chronic Breast cancer of lower-inner quadrant of right female breast chronic Right knee pain noneactive Left breast lump acute [facility] Work Phone: Evaluation note* Diagnosis Onset Date Resolution Status Breast cancer of lower-inner quadrant of right female breast chronic Left knee DJD acute Breast cancer of lower-inner quadrant of right female breast chronic Hyperlipidemia acute Essential (primary) hypertension chronic Essential (primary) hypertension chronic [facility] Work Phone: Evaluation note* Diagnosis Onset Date [...] DJD acute Sciatica of left side acute [facility] Work Phone: Evaluation note* Diagnosis Onset Date [...] cyst, left acute Lateral meniscus tear acute [facility] Work Phone: Evaluation note* Diagnosis Onset Date [...] cyst, left acute Lateral meniscus tear acute [facility] Work Phone: Evaluation note* Diagnosis Onset Date [...] cyst, left acute Lateral meniscus tear acute [facility] Work Phone: Evaluation note* Diagnosis Onset Date [...] meniscus tear acute Orthopedic aftercare noneact gemma [facility] Work Phone: Evaluation note* Diagnosis Preoperative examination- [...] with cerebral infarction [facility] Preoperative examination- Primary Preoperative [...] atrial septal defect [facility] Diagnosis Preoperative examination- Primary Preoperative examination, [...] atrial septal defect documented in this encounter [facility] note* Diagnosis Preoperative examination- Primary Preoperative examination, [...] atrial septal defect documented in this encounter [facility] note* Diagnosis Preoperative examination- Primary Preoperative examination, [...] atrial septal defect documented in this encounter [facility] note* Diagnosis Onset Date Resolution Status Breast cancer of lower-inner quadrant of right female breast chronic Left knee DJD acute Breast cancer of lower-inner quadrant of right female breast chronic Hyperlipidemia acute Essential (primary) hypertension chronic [facility] Work Phone: Evaluation note* Diagnosis Preoperative examination- [...] atrial septal defect documented in this encounter [facility] note* Diagnosis Preoperative examination- Primary Preoperative examination, [...] atrial septal defect [facility] Diagnosis Preoperative examination- Primary Preoperative examination, [...] atrial septal defect [facility] Diagnosis Preoperative examination- Primary Preoperative examination, [...] (HCC) Atrial fibrillation [facility] Diagnosis Preoperative examination- Primary Preoperative examination, [...] specified cardiac dysrhythmias [facility] Diagnosis Preoperative examination- Primary Preoperative examination, [...] Pain in limb documented in this encounter [facility] note* Diagnosis Preoperative examination- Primary Preoperative examination, [...] of right ankle documented in this encounter [facility] Discharge instructions Additional Instructions Please follow-up outpatient.[facility] Work Phone: Reason for referral (narrative)* Outpatient Procedure (Routine) - New Request Specialty Diagnoses / Procedures Referred By Contac t [facility] Diagnoses PFO (patent foramen ovale) Procedures ECHO TRANSESOPHAGEAL ECHO TRANSESOPHAG R-T 2D W/PRB IMG SONAM I&R Smith Lopez MD [address] [place] [address] [facility] [place] [address] [place] [address] Referral ID Status Reason Start Date Expiration Date Visits Requested Visits Authorized [id number] New Request Auto-Generat ed Referral 06/24/2024 06/24/2025 [address] [facility] for referral (narrative)* Outpatient Procedure (Routine) - New Request Specialty Diagnoses / Procedures Referred By Contac t Referred [facility] Diagnoses PFO (patent foramen ovale) Procedures ECHO TRANSESOPHAGEAL ECHO TRANSESOPHAG R-T 2D W/PRB IMG ACQUISJ I&R Vandana Goldstein APRN.CNP [address] [place] [address] [facility] [place] [address] [place] [address] Referral ID Status Reason Start Date Expiration Date Visits Requested Visits Authorized [id number] New Request Auto-Generat ed Referral 07/23/2024 07/23/2025 1 1 [facility] for referral (narrative)* Outpatient Procedure (Routine) - New Request Specialty Diagnoses / Procedures Referred By Contac t Referred To Contact [facility] Diagnoses PFO (patent foramen ovale) Procedures ECHO TRANSESOPHAGEAL ECHO TRANSESOPHAG R-T 2D W/PRB IMG ACQUISCyril I&R Smith Lopez MD [address] [place] [address] [facility] [place] [address] [place] [address] Referral ID Status Reason Start Date Expiration Date Visits Requested Visits Authorized [id number] New Request Auto-Generat ed Referral 07/26/2024 07/26/2025 1 1 [facility] for referral (narrative)No reason for referral information [facility]WAv[facility] Work Phone: Summary Purpose Family History [...] 2020 10:33am Name of Medical Power of Fire Control Technician G Derrek Jacob March 29, 2021 10:33am Advance Directives Yes June 27, 2021 10:32am Living Will Yes January 21, 2022 1 1:38am Power of Fire Control Technician G Yes January 21, 2022 11:38am Advance Directive Response Recorded Date/ Time Advance Directives on File No 2020 10:33am Name of Medical Power of Fire Control Technician G Derrek Jacob March 29, 2021 10:33am Name of Medical Power of Fire Control Technician G TRAVIS HENSLEY January 21, 2022 11:38am Name of [facility] Control [facility] May 16, 2022 2:56pm Advance Directives Yes January 25 7:55pm Living Will Yes May 16, 2022 2:56pm Power of Fire Control Technician G Yes April 2:56pm Advance Directive Response Recorded Date/ Time Advance Directives Yes January 25 7:55pm Living Will Yes May 16, 2022 2:56pm Power of Fire Control Technician G Yes April 2:56pm Advance Directive Response Recorded Date/ Time Advance Directives on File No Augus t 11th, 2021 10:33am Name of Medical Power of Fire Control Technician G Derrek Jacob March 29, 2021 10:33am Advance Directives Yes January 25 7:55pm Living Will Yes May 16, 2022 2:56pm Power of Fire Control Technician G Yes April 2:56pm Advance Directive Response Recorded Date/ Time Advance Directives Yes January 25 6:55pm Living Will Yes May 16, 2022 1:56pm Power of Fire Control Technician G Yes April 1:56pm Advance Directive Response Recorded Date/ Time Advance Directives on File No Augus t 2020 9:33am Name of Medical Power of Fire Control Technician G Derrek Jacob March 29, 2021 9:33am Advance Directives Yes January 25 6:55pm Living Will Yes May 16, 2022 1:56pm Power of Fire Control Technician G Yes April 1:56pm Advance Directive Response Recorded Date/ Time Advance Directives on File No Augus t 2020 10:33am Name of Medical Power of Fire Control Technician G Derrek Jacob March 29, 2021 10:33am Name of Medical Power of Fire Control Technician G IZABELLA CASTAÑEDAI Jasper AYDEN November 18, 2023 1:12pm Advance Directives Yes January 25 7:55pm Living Will Yes November 18, 2023 1:12pm Power of Fire Control Technician G Yes November 17 1:12pm Advance Directive Response Recorded Date/ Time Advance Directives on File No Augus t 2020 10:33am Name of Medical Power of Fire Control Technician G Derrek Jacob March 29, 2021 10:33am Name of Medical Power of Fire Control Technician G MARIOA MOISES CASTAÑEDAI Jasper PELROSEMARIE November 18, 2023 1:12pm Name of Medical Power of Fire Control Technician G Travis Hensley December 12, 2023 12:44pm Advance Directives Yes January 25 7:55pm Living Will Yes December 12, 2023 12:44pm Power of Fire Control Technician G Yes December 11 12:44pm Advance Directive Response Recorded Date/ Time Advance Directives on File No Augus t 2020 10:33am Name of Medical Power of Fire Control Technician G Derrek Jacob March 29, 2021 10:33am Name of Medical Power of Fire Control Technician G POA [facility] TAIWO HENSLEY November 18, 2023 1:12pm Name of Medical Power of Fire Control Technician G Travis Hensley December 12, 2023 12:44pm Name of Medical Power of Fire Control Technician G TRAVIS HENSLEY December 21, 2023 10:32am Advance Directives Yes January 25 7:55pm Living Will Yes December 21, 2023 10 :32am Power of Fire Control Technician G Yes December 21, 2023 10:32am Date Activated Date Inactivated Comments 04/19/2024 4:04 PM Date Activated Date Inactivated Comments 04/19/2024 4:04 PM 04/23/2024 7:23 PM Question Answer Comments Full Code Order Discussed With: Patient Advance Directive Response Recorded Date/ Time Living Will Yes December 21, 2023 10 :32am Do you have a Healthcare Power of Fire Control Technician G? Yes December 21, 2023 10:32am Advance Directives on File No Augus t 2020 10:33am Living Will Yes March 29 10:33am Do you have a Healthcare Power of Fire Control Technician G? Yes March 29, 2021 10:33am Name of Medical Power of Fire Control Technician G Derrek Jacob March 29, 2021 10:33am Advance Directives Yes January 25 7:55pm Advance Directive Response Recorded Date/ Time Advance Directives on File No Augus t 2020 10:33am Living Will Yes March 29 10:33am Do you have a Healthcare Power of Fire Control Technician G? Yes March 29, 2021 10:33am Name of Medical Power of Fire Control Technician G Derrekobdulio Omerdino March 29, 2021 10:33am Advance Directives Yes January 25 7:55pm Advance Directive Response Recorded Date/ Time Advance Directives on File No Augus t 2020 10:33am Living Will Yes March 29 10:33am Do you have a Healthcare Power of Fire Control Technician G? Yes March 29, 2021 10:33am Name of Medical Power of Fire Control Technician G Derrek Jacob March 29, 2021 10:33am Do you have a Healthcare Power of Fire Control Technician G? Yes April 04, 2025 1:05am Advance Directives Yes January 25 7:55pm Advance Directive Response Recorded Date/ Time Do you have a Healthcare Power of Fire Control Technician G? Yes April 04, 2025 1:05am Advance Directives Yes January 25 7:55pm Procedure Findings Note HNO ID: [id number] Author: Cyril Rocha Service: ? Author Type: Anesthesiologist Type: Anesthesia Procedure Notes Filed: 04/22/2020 4:19 PM Note Text: ANESTHESIOLOGY PROCEDURE NOTE Airway General Information Procedure Start Time/Medication Administration: 04/22/2020 12:50 PM Procedure End Time: 04/22/2020 12:51 PM Patient location during procedure: OR Timeout Performed Pre-procedure: timeout performed Consent Obtained: Yes Patient identity confirmed: patient and arm band Staffing Anesthesiologist: Raymond Rocha SANDWICH MACHINE OPERATOR: Deng Barlow Performed by: BRITTON Indications and Patient Condition Preoxygenated: yes Patient position: sniffing Manual In-Line Stabilization: Yes Difficult Mask: No Indications for airway management: anesthesia anesthesia circuit Method: asleep Airway Accessory: LMA Final Airway Details Final airway type: supraglottic airway Number of attempts at approach: 1 Final Supraglottic Airway: Size 4 Airway not difficult SIGNATURE: Deng Barlow APRN.SANDWICH MACHINE OPERATOR PATIENT NAME: Ther (more content not included)... [...] section and content) DATE CREATED AUTHOR 03/17/2018 [facility] DATE CREATED AUTHOR AUTHOR'S ORGANIZ ATION 03/17/2018 [facility] DATE CREATED AUTHOR AUTHOR'S ORGANIZ ATION 05/30/2018 [facility] DATE CREATED AUTHOR AUTHOR'S ORGANIZ ATION 06/10/2020 [facility] DATE CREATED AUTHOR AUTHOR'S ORGANIZ ATION 04/25/2021 [facility] DATE CREATED AUTHOR AUTHOR'S ORGANIZ ATION 04/19/2024 [facility] DATE CREATED AUTHOR AUTHOR'S ORGANIZ ATION 04/08/[facility] DATE CREATED AUTHOR AUTHOR'S ORGANIZ ATION 05/06/2025 [facility] Goals (unrecognized section and content) Goals may [...] Inactive Member Role Status Dates Loan Dias SENIOR QUALITY ASSURANCE ENGINEER, SENIOR QUALITY ASSURANCE ENGINEER-C Primary Care Provider Active Dr. João Kong DO Attending Provider Active Team Status: Inactive Member Role Status Dates [employer] Di[employer] SENIOR QUALITY ASSURANCE ENGINEER, SENIOR QUALITY ASSURANCE ENGINEER-C Primary Care Provider, Referr ing Provider Active Dr. Antonia Escalante MD Attending Provider Active Team Status: Inactive Member Role Status Dates [employer] Di[employer] SENIOR QUALITY ASSURANCE ENGINEER, SENIOR QUALITY ASSURANCE ENGINEER-C Primary Care Provider, Referr ing Provider Active Ashli Rosado PA, PA Attending Provider Active Team Status: Inactive Member Role Status Dates Loan Dias SENIOR QUALITY ASSURANCE ENGINEER, SENIOR QUALITY ASSURANCE ENGINEER-C Primary Care Provider, Referr ing Provider Active Dr. Raymond Lagos DO Attending Provider Active Team Status: Inactive Member Role Status Dates Loan Di[employer] SENIOR QUALITY ASSURANCE ENGINEER, SENIOR QUALITY ASSURANCE ENGINEER-C Primary Care Provider Active Dr. Nico Hook MD Attending Provider Active Team Status: Active Member Role Status Dates Dr. Raymond Lagos DO Attending Provider, Other Prov ider Active Dr. Ashley Luna MD Primary Care Provider, Referrin g Provider Active Team Status: Inactive Member Role Status Dates [employer] SENIOR QUALITY ASSURANCE ENGINEER, SENIOR QUALITY ASSURANCE ENGINEER-C Primary Care Pr ovider, Attending Provider, Referring Provider Active Team Status: Active Member Role Status Dates Dr. Antonia Escalante MD Attending Provider Active Dr. Yogesh Haque MD Referring Provider Active Dr. João Kong DO Other Provider Active [employer] SENIOR QUALITY ASSURANCE ENGINEER, SENIOR QUALITY ASSURANCE ENGINEER-C Primary Care Provider Active Team Status: Inactive Member Role Status Dates [employer] Di[employer] SENIOR QUALITY ASSURANCE ENGINEER, SENIOR QUALITY ASSURANCE ENGINEER-C Primary Care Provider Active Ahsli Rosado PA, PA Attending Provider Active Team Status: Inactive Member Role Status Dates [employer] SENIOR QUALITY ASSURANCE ENGINEER, SENIOR QUALITY ASSURANCE ENGINEER-C Primary Care Provider Active Dr. Raymond Lagos DO Attending Provider, Referring Provider Active Team Status: Inactive Member Role Status Dates [employer] SENIOR QUALITY ASSURANCE ENGINEER, SENIOR QUALITY ASSURANCE ENGINEER-C Primary Care Provider Active Dr. Antonia Escalante MD Attending Provider, Referrin g Provider Active Team Status: Inactive Member Role Status Dates Dr. Raymond Lagos DO Attending Provider Active Dr. Ashley Luna MD Primary Care Provider, Referrin g Provider Active Team Status: Active Member Role Status Dates [employer] SENIOR QUALITY ASSURANCE ENGINEER, SENIOR QUALITY ASSURANCE ENGINEER-C Primary Care Provider Active Team Status: Inactive Member Role Status Dates [employer] SENIOR QUALITY ASSURANCE ENGINEER, SENIOR QUALITY ASSURANCE ENGINEER-C Primary Care Provider, Referr ing Provider Active Dr. João Kong DO Attending Provider Active Team Status: Inactive Member Role Status Dates [employer] Di[employer] SENIOR QUALITY ASSURANCE ENGINEER, SENIOR QUALITY ASSURANCE ENGINEER-C Primary Care Provider, Referr ing Provider Active Verónica Lopez SENIOR QUALITY ASSURANCE ENGINEER, SENIOR QUALITY ASSURANCE ENGINEER-C Attending Provider Active Team Status: Inactive Member Role Status Dates [employer] Di[employer] SENIOR QUALITY ASSURANCE ENGINEER, SENIOR QUALITY ASSURANCE ENGINEER-C Primary Care Provider, Referr ing Provider Active Dr. Nico Hook MD Attending Provider Active Team Status: Active Member Role Status Dates [employer] Di[employer] SENIOR QUALITY ASSURANCE ENGINEER, SENIOR QUALITY ASSURANCE ENGINEER-C Primary Care Provider Active Lisa Harper Attending Provider Active Team Status: Active Member Role Status Dates Loan Di[employer] SENIOR QUALITY ASSURANCE ENGINEER, SENIOR QUALITY ASSURANCE ENGINEER-C Primary Care Provider Active Dr. Nico Hook MD Attending Provider Active Team Status: Inactive Member Role Status Dates [employer] Di[employer] SENIOR QUALITY ASSURANCE ENGINEER, SENIOR QUALITY ASSURANCE ENGINEER-C Primary Care Provider Active Dr. Nico Hook MD Attending Provider, Referring Pro vider Active Team Status: Inactive Member Role Status Dates Loan Dias SENIOR QUALITY ASSURANCE ENGINEER, SENIOR QUALITY ASSURANCE ENGINEER-C Primary Care Provider Active Verónica Lopez SENIOR QUALITY ASSURANCE ENGINEER, SENIOR QUALITY ASSURANCE ENGINEER-C Attending Provider, Referring Provider Active Team Status: Inactive Member Role Status Dates [employer] Di[employer] SENIOR QUALITY ASSURANCE ENGINEER, SENIOR QUALITY ASSURANCE ENGINEER-C Primary Care Provider, Referr ing Provider Active Dr. Dia Tobin MD Attending Provider Active Team Status: Inactive Member Role Status Dates [employer] Dias SENIOR QUALITY ASSURANCE ENGINEER, SENIOR QUALITY ASSURANCE ENGINEER-C Primary Care Provider Active Dr. Dia Tobin MD Attending Provider, Referring Provider Active Team Status: Inactive Member Role Status Dates [employer] SENIOR QUALITY ASSURANCE ENGINEER, SENIOR QUALITY ASSURANCE ENGINEER-C Primary Care Provider, Attend ing Provider Active Team Status: Inactive Member Role Status Dates [employer] SENIOR QUALITY ASSURANCE ENGINEER, SENIOR QUALITY ASSURANCE ENGINEER-C Primary Care Provider Active Dr. Matthew Fajardo MD Emergency Provider Active Team Status: Inactive Member Role Status Dates [employer] SENIOR QUALITY ASSURANCE ENGINEER, SENIOR QUALITY ASSURANCE ENGINEER-C Primary Care Provider Active Dr. Matthew Fajardo MD Attending Provider, Emergency Pro vider Active Team Status: Inactive Member Role Status Dates [employer] SENIOR QUALITY ASSURANCE ENGINEER, SENIOR QUALITY ASSURANCE ENGINEER-C Primary Care Provider Active Dr. Wu Augustine MD Emergency Provider Active Quill Picking Machine Operator Relationship Specialty Start Date End Date Loan Dias JEWELRY JOBBER.DRAW PRESS OPERATOR [address] [place] [address] PCP - General Family Medicine 05/18/17 Quill Picking Machine Operator Relationship Specialty Start Date End Date Loan Dias JEWELRY JOBBER.DRAW PRESS OPERATOR [address] [place] [address] PCP - General Family Medicine 05/18/17 Quill Picking Machine Operator Relationship Specialty Start Date End Date Loan Dias, JEWELRY JOBBER.DRAW PRESS OPERATOR [address] [place], [place] [id number] PCP - General Family Medicine 05/18/17 Quill Picking Machine Operator Relationship Specialty Start Date End Date Loan Dias, JEWELRY JOBBER.DRAW PRESS OPERATOR [address] [place], [place] [id number] [phone] PCP - General Family Medicine 05/18/17 Quill Picking Machine Operator Relationship Specialty Start Date End Date Loan Dias, JEWELRY JOBBER.DRAW PRESS OPERATOR [address] [place] [address] PCP - General Family Medicine 05/18/17 Quill Picking Machine Operator Relationship Specialty Start Date End Date Loan Dias, JEWELRY JOBBER.DRAW PRESS OPERATOR [address] [place] [address] PCP - General Family Medicine 05/18/17 Quill Picking Machine Operator Relationship Specialty Start Date End Date Loan Dias, JEWELRY JOBBER.DRAW PRESS OPERATOR [address] [place] [address] PCP - General Family Medicine 05/18/17 Quill Picking Machine Operator Relationship Specialty Start Date End Date Loan Dias, JEWELRY JOBBER.DRAW PRESS OPERATOR [address] [place] [address] PCP - General Family Medicine 05/18/17 Quill Picking Machine Operator Relationship Specialty Start Date End Date Loan Dias, JEWELRY JOBBER.DRAW PRESS OPERATOR [address] [place] [address] PCP - General Family Medicine 05/18/17 Quill Picking Machine Operator Relationship Specialty Start Date End Date Loan Dias, JEWELRY JOBBER.DRAW PRESS OPERATOR [address] [place] [address] PCP - General Family Medicine 05/18/17 Quill Picking Machine Operator Relationship Specialty Start Date End Date Loan Dias, JEWELRY JOBBER.DRAW PRESS OPERATOR [address] [place] [address] PCP - General Family Medicine 05/18/17 Quill Picking Machine Operator Relationship Specialty Start Date End Date Loan Dias, JEWELRY JOBBER.DRAW PRESS OPERATOR [address] [place] [address] PCP - General Family Medicine 05/18/17 Quill Picking Machine Operator Relationship Specialty Start Date End Date Loan Dias, JEWELRY JOBBER.DRAW PRESS OPERATOR [address] [place] [address] PCP - General Family Medicine 05/18/17 Quill Picking Machine Operator Relationship Specialty Start Date End Date Loan Dias, JEWELRY JOBBER.DRAW PRESS OPERATOR [address] [place] [address] PCP - General Family Medicine 05/18/17 Quill Picking Machine Operator Relationship Specialty Start Date End Date Loan Dias, JEWELRY JOBBER.DRAW PRESS OPERATOR [address] [place] [address] PCP - General Family Medicine 05/18/17 Quill Picking Machine Operator Relationship Specialty Start Date End Date Loan Dias, JEWELRY JOBBER.DRAW PRESS OPERATOR [address] [place] [address] PCP - General Family Medicine 05/18/17 Quill Picking Machine Operator Relationship Specialty Start Date End Date Loan Di[employer], JEWELRY JOBBER.DRAW PRESS OPERATOR [address] [place] [address] PCP - General Family Medicine 05/18/17 Team Status: Inactive Member Role Status Dates [employer] Di[employer] SENIOR QUALITY ASSURANCE ENGINEER, SENIOR QUALITY ASSURANCE ENGINEER-C Primary Care Provider Active Start: August 31, 2024 End: August 31, 2024 Loan Dias SENIOR QUALITY ASSURANCE ENGINEER, SENIOR QUALITY ASSURANCE ENGINEER-C Referring Provider Active Start: August 31, 2024 End: August 31, 2024 Dr. Raymond Lagos DO Attending Provider Active Start: August 31, 2024 End: August 31, 2024 Team Status: Inactive Member Role Status Dates Loan iDas SENIOR QUALITY ASSURANCE ENGINEER, SENIOR QUALITY ASSURANCE ENGINEER-C Primary Care Provider Active Start: August 31, 2024 End: August 31, 2024 Dr. Nico Hook MD Attending Provider Active S tart: August 31, 2024 End: August 31, 2024 Team Status: Inactive Member Role Status Dates Loanaruna Dias SENIOR QUALITY ASSURANCE ENGINEER, SENIOR QUALITY ASSURANCE ENGINEER-C Primary Care Provider Active Start: September 21, 2024 End: September 21, 2024 Loan Dias SENIOR QUALITY ASSURANCE ENGINEER, SENIOR QUALITY ASSURANCE ENGINEER-C Referring Provider Active Start: September 21, 2024 End: September 21, 2024 Verónica Lopez SENIOR QUALITY ASSURANCE ENGINEER, SENIOR QUALITY ASSURANCE ENGINEER-C Attending Provider Active Start: September 21, 2024 End: September 21, 2024 Team Status: Active Member Role Status Dates Dr. Antonia Escalante MD Attending Provider Active Start: September 21, 2024 Dr. Yogesh Haque MD Referring Provider Active Start: September 21, 2024 Dr. João Kong DO Other Provider Active Sta rt: September 21, 2024 [employer] Di[employer] SENIOR QUALITY ASSURANCE ENGINEER, SENIOR QUALITY ASSURANCE ENGINEER-C Primary Care Provider Active Start: September 21, 2024 Team Status: Inactive Member Role Status Dates Loan Arun SENIOR QUALITY ASSURANCE ENGINEER, SENIOR QUALITY ASSURANCE ENGINEER-C Primary Care Provider Active Start: October 08, 2024 End: October 08, 2024 Loan Dias SENIOR QUALITY ASSURANCE ENGINEER, SENIOR QUALITY ASSURANCE ENGINEER-C Attending Provider Active Start: October 08, 2024 End: October 08, 2024 Loan Dias SENIOR QUALITY ASSURANCE ENGINEER, SENIOR QUALITY ASSURANCE ENGINEER-C Referring Provider Active Start: October 08, 2024 End: October 08, 2024 Team Status: Inactive Member Role Status Dates [employer] Dias SENIOR QUALITY ASSURANCE ENGINEER, SENIOR QUALITY ASSURANCE ENGINEER-C Primary Care Provider Active Start: October 27, 2024 End: October 27, 2024 Dr. Mariajose Barclay MD Attending Provider Active Start: October 27, 2024 End: October 27, 2024 Dr. Mariajose Barclay MD Referring Provider Active Start: October 27, 2024 End: October 27, 2024 Team Status: Inactive Member Role Status Dates [employer] Dias SENIOR QUALITY ASSURANCE ENGINEER, SENIOR QUALITY ASSURANCE ENGINEER-C Primary Care Provider Active Start: October 27, 2024 End: October 27, 2024 Loan Dias SENIOR QUALITY ASSURANCE ENGINEER, SENIOR QUALITY ASSURANCE ENGINEER-C Referring Provider Active Start: October 27, 2024 End: October 27, 2024 Dr. João Kong DO Attending Provider Active Start: October 27, 2024 End: October 27, 2024 Team Status: Active Member Role Status Dates [employer] Di[employer] SENIOR QUALITY ASSURANCE ENGINEER, SENIOR QUALITY ASSURANCE ENGINEER-C Primary Care Provider Active Start: October 31, 2024 Dr. Antonia Escalante MD Attending Provider Active Start: October 31, 2024 Dr. Antonia Escalante MD Referring Provider Active Start: October 31, 2024 Team Status: Active Member Role Status Dates [employer] Dias SENIOR QUALITY ASSURANCE ENGINEER, SENIOR QUALITY ASSURANCE ENGINEER-C Primary Care Provider Active Start: November 03, 2024 Dr. Antonia Escalante MD Attending Provider Active Start: November 03, 2024 Dr. Antonia Escalante MD Referring Provider Active Start: November 03, 2024 Team Status: Inactive Member Role Status Dates [employer] Di[employer] SENIOR QUALITY ASSURANCE ENGINEER, SENIOR QUALITY ASSURANCE ENGINEER-C Primary Care Provider Active Start: October 31, 2024 End: October 31, 2024 Dr. Antonia Escalante MD Attending Provider Active Start: October 31, 2024 End: October 31, 2024 Dr. Antonia Escalante MD Referring Provider Active Start: October 31, 2024 End: October 31, 2024 Team Status: Inactive Member Role Status Dates [employer] SENIOR QUALITY ASSURANCE ENGINEER, SENIOR QUALITY ASSURANCE ENGINEER-C Primary Care Provider Active Start: November 03, 2024 End: November 03, 2024 Dr. Antonia Escalante MD Attending Provider Active Start: November 03, 2024 End: November 03, 2024 Dr. Antonia Escalante MD Referring Provider Active Start: November 03, 2024 End: November 03, 2024 Quill Picking Machine Operator Relationship Specialty Start Date End Date Loan Dias APRN.DRAW PRESS OPERATOR [address] [address] PCP - General Family Medicine 05/18/17 Quill Picking Machine Operator Relationship Specialty Start Date End Date Loan Dias APRN.CNP [address] [facility] [address] [place] [address] PCP - General Family Medicine 05/18/17 Team Status: Active Member Role/Relationship Status Dates [employer] Di[employer] SENIOR QUALITY ASSURANCE ENGINEER, SENIOR QUALITY ASSURANCE ENGINEER-C Primary Care Provider Active Team Status: Inactive Member Role/Relationship Status Dates [employer] Di[employer] SENIOR QUALITY ASSURANCE ENGINEER, SENIOR QUALITY ASSURANCE ENGINEER-C Primary Care Provider Active Start: December 14, 2024 End: December 14, 2024 Loan Dias SENIOR QUALITY ASSURANCE ENGINEER, SENIOR QUALITY ASSURANCE ENGINEER-C Referring Provider Active Start: December 14, 2024 End: December 14, 2024 Verónica Lopez SENIOR QUALITY ASSURANCE ENGINEER, SENIOR QUALITY ASSURANCE ENGINEER-C Attending Provider Active Start: December 14, 2024 End: December 14, 2024 Team Status: Active Member Role/Relationship Status Dates Dr. Antonia Escalante MD Attending Provider Active Start: December 14, 2024 Dr. Yogesh Haque MD Referring Provider Active Start: December 14, 2024 Dr. João Kong DO Other Provider Active Sta rt: December 14, 2024 [employer] Dias SENIOR QUALITY ASSURANCE ENGINEER, SENIOR QUALITY ASSURANCE ENGINEER-C Primary Care Provider Active Start: December 14, 2024 Team Status: Inactive Member Role/Relationship Status Dates [employer] Di[employer] SENIOR QUALITY ASSURANCE ENGINEER, SENIOR QUALITY ASSURANCE ENGINEER-C Primary Care Provider Active Start: March 10, 2025 End: March 10, 2025 Loan Dias SENIOR QUALITY ASSURANCE ENGINEER, SENIOR QUALITY ASSURANCE ENGINEER-C Referring Provider Active Start: March 10, 2025 End: March 10, 2025 Dr. Raymond Lagos DO Attending Provider Active Start: March 10, 2025 End: March 10, 2025 Team Status: Inactive Member Role/Relationship Status Dates [employer] Dias SENIOR QUALITY ASSURANCE ENGINEER, SENIOR QUALITY ASSURANCE ENGINEER-C Primary Care Provider Active Start: March 12, 2025 End: March 12, 2025 Loan Dias SENIOR QUALITY ASSURANCE ENGINEER, SENIOR QUALITY ASSURANCE ENGINEER-C Referring Provider Active Start: March 12, 2025 End: March 12, 2025 Dr. Hossein Josue MD Attending Provider Active Start: March 12, 2025 End: March 12, 2025 Team Status: Inactive Member Role/Relationship Status Dates [employer] Dias SENIOR QUALITY ASSURANCE ENGINEER, SENIOR QUALITY ASSURANCE ENGINEER-C Primary Care Provider Active Start: April 04, 2025 End: April 04, 2025 Dr. Rob Guallpa MD Emergency Provider Active Start: April 04, 2025 End: April 04, 2025 Quill Picking Machine Operator Relationship Specialty Start Date End Date Loan Dias APRN.DRAW PRESS OPERATOR [address] [address] PCP - General Family Medicine 05/18/17 Team Status: Inactive Member Role/Relationship Status Dates Loan Dias SENIOR QUALITY ASSURANCE ENGINEER, SENIOR QUALITY ASSURANCE ENGINEER-C Primary Care Provider Active Start: April 08, 2025 End: April 08, 2025 Loan Dias SENIOR QUALITY ASSURANCE ENGINEER, SENIOR QUALITY ASSURANCE ENGINEER-C Referring Provider Active Start: April 08, 2025 End: April 08, 2025 Radha Tan NP-C Attending Provider Active Start: April 08, 2025 End: April 08, 2025 Team Status: Inactive Member Role/Relationship Status Dates Loan Dias SENIOR QUALITY ASSURANCE ENGINEER, SENIOR QUALITY ASSURANCE ENGINEER-C Primary Care Provider Active Start: March 10, 2025 End: March 10, 2025 Loan Dias SENIOR QUALITY ASSURANCE ENGINEER, SENIOR QUALITY ASSURANCE ENGINEER-C Referring Provider Active Start: March 10, 2025 End: March 10, 2025 Dr. Raymond Lagos DO Attending Provider Active Start: March 10, 2025 End: March 10, 2025 Team Status: Inactive Member Role/Relationship Status Dates Loan Dias SENIOR QUALITY ASSURANCE ENGINEER, SENIOR QUALITY ASSURANCE ENGINEER-C Primary Care Provider Active Start: March 12, 2025 End: March 12, 2025 Loan Dias SENIOR QUALITY ASSURANCE ENGINEER, SENIOR QUALITY ASSURANCE ENGINEER-C Referring Provider Active Start: March 12, 2025 End: March 12, 2025 Dr. Hossein Josue MD Attending Provider Active Start: March 12, 2025 End: March 12, 2025 Team Status: Inactive Member Role/Relationship Status Dates Loan Dias SENIOR QUALITY ASSURANCE ENGINEER, SENIOR QUALITY ASSURANCE ENGINEER-C Primary Care Provider Active Start: April 04, 2025 End: April 04, 2025 Dr. Rob Guallpa MD Attending Provider Active Start: April 04, 2025 End: April 04, 2025 Dr. Rob Guallpa MD Emergency Provider Active Start: April 04, 2025 End: April 04, 2025 Team Status: Inactive Member Role/Relationship Status Dates Loan Dias SENIOR QUALITY ASSURANCE ENGINEER, SENIOR QUALITY ASSURANCE ENGINEER-C Primary Care Provider Active Start: April 08, 2025 End: April 08, 2025 Loan Dias SENIOR QUALITY ASSURANCE ENGINEER, SENIOR QUALITY ASSURANCE ENGINEER-C Referring Provider Active Start: April 08, 2025 End: April 08, 2025 Radha Tan SENIOR QUALITY ASSURANCE ENGINEER-C Attending Provider Active Start: April 08, 2025 End: April 08, 2025 Team Status: Inactive Member Role/Relationship Status Dates Loan Dias SENIOR QUALITY ASSURANCE ENGINEER, SENIOR QUALITY ASSURANCE ENGINEER-C Primary Care Provider Active Start: April 13, 2025 End: April 13, 2025 Loan Dias SENIOR QUALITY ASSURANCE ENGINEER, SENIOR QUALITY ASSURANCE ENGINEER-C Attending Provider Active Start: April 13, 2025 End: April 13, 2025 Loan Dias SENIOR QUALITY ASSURANCE ENGINEER, SENIOR QUALITY ASSURANCE ENGINEER-C Referring Provider Active Start: April 13, 2025 End: April 13, 2025 Team Status: Inactive Member Role/Relationship Status Dates Loan Dias SENIOR QUALITY ASSURANCE ENGINEER, SENIOR QUALITY ASSURANCE ENGINEER-C Primary Care Provider Active Start: April 24, [...] or prosecute any alcohol or drug abuse patient.[facility] the event this information is protected by the Federal Confidentiality of Alcohol and Drug Abuse Patient Records regulations: The Federal rules restrict any use of the information to criminally investigate or prosecute any alcohol or drug abuse patient.[facility] HospitalIn the event this information is protected by the Federal Confidentiality of Alcohol and Drug Abuse Patient Records regulations: The Federal rules restrict any use of the information to criminally investigate or prosecute any alcohol or drug abuse patient.[facility]In the event this information is protected by the Federal Confidentiality of Alcohol and Drug Abuse Patient Records regulations: The Federal rules restrict any use of the information to criminally investigate or prosecute any alcohol or drug abuse patient.[facility] HospitalIn the event this information is protected by the Federal Confidentiality of Alcohol and Drug Abuse Patient Records regulations: The Federal rules restrict any use of the information to criminally investigate or prosecute any alcohol or drug abuse patient.[facility] HospitalIn the event this information is protected by the Federal Confidentiality of Alcohol and Drug Abuse Patient Records regulations: The Federal rules restrict any use of the information to criminally investigate or prosecute any alcohol or drug abuse patient.[facility] HospitalIn the event this information is protected by the Federal Confidentiality of Alcohol and Drug Abuse Patient Records regulations: The Federal rules restrict any use of the information to criminally investigate or prosecute any alcohol or drug abuse patient.[facility] HospitalIn the event this information is protected by the Federal Confidentiality of Alcohol and Drug Abuse Patient Records regulations: The Federal rules restrict any use of the information to criminally investigate or prosecute any alcohol or drug abuse patient.[facility] HospitalIn the event this information is protected by the Federal Confidentiality of Alcohol and Drug Abuse Patient Records regulations: The Federal rules restrict any use of the information to criminally investigate or prosecute any alcohol or drug abuse patient.[facility] HospitalIn the event this information is protected by the Federal Confidentiality of Alcohol and Drug Abuse Patient Records regulations: The Federal rules restrict any use of the information to criminally investigate or prosecute any alcohol or drug abuse patient.[facility] HospitalIn the event this information is protected by the Federal Confidentiality of Alcohol and Drug Abuse Patient Records regulations: The Federal rules restrict any use of the information to criminally investigate or prosecute any alcohol or drug abuse patient.[facility] HospitalIn the event this information is protected by the Federal Confidentiality of Alcohol and Drug Abuse Patient Records regulations: The Federal rules restrict any use of the information to criminally investigate or prosecute any alcohol or drug abuse patient.[facility] HospitalIn the event this information is protected by the Federal Confidentiality of Alcohol and Drug Abuse Patient Records regulations: The Federal rules restrict any use of the information to criminally investigate or prosecute any alcohol or drug abuse patient.[facility] HospitalIn the event this information is protected by the Federal Confidentiality of Alcohol and Drug Abuse Patient Records regulations: The Federal rules restrict any use of the information to criminally investigate or prosecute any alcohol or drug abuse patient.[facility] HospitalIn the event this information is protected by the Federal Confidentiality of Alcohol and Drug Abuse Patient Records regulations: The Federal rules restrict any use of the information to criminally investigate or prosecute any alcohol or drug abuse patient.[facility] HospitalIn the event this information is protected by the Federal Confidentiality of Alcohol and Drug Abuse Patient Records regulations: The Federal rules restrict any use of the information to criminally investigate or prosecute any alcohol or drug abuse patient.[facility] HospitalIn the event this information is protected by the Federal Confidentiality of Alcohol and Drug Abuse Patient Records regulations: The Federal rules restrict any use of the information to criminally investigate or prosecute any alcohol or drug abuse patient.[facility] HospitalIn the event this information is protected by the Federal Confidentiality of Alcohol and Drug Abuse Patient Records regulations: The Federal rules restrict any use of the information to criminally investigate or prosecute any alcohol or drug abuse patient.[facility] HospitalIn the event this information is protected by the Federal Confidentiality of Alcohol and Drug Abuse Patient Records regulations: The Federal rules restrict any use of the information to criminally investigate or prosecute any alcohol or drug abuse patient.[facility] HospitalIn the event this information is protected by the Federal Confidentiality of Alcohol and Drug Abuse Patient Records regulations: The Federal rules restrict any use of the information to criminally investigate or prosecute any alcohol or drug abuse patient.[facility] HospitalIn the event this information is protected by the Federal Confidentiality of Alcohol and Drug Abuse Patient Records regulations: The Federal rules restrict any use of the information to criminally investigate or prosecute any alcohol or drug abuse patient.[facility] HospitalIn the event this information is protected by the Federal Confidentiality of Alcohol and Drug Abuse Patient Records regulations: The Federal rules restrict any use of the information to criminally investigate or prosecute any alcohol or drug abuse patient.[facility] HospitalIn the event this information is protected by the Federal Confidentiality of Alcohol and Drug Abuse Patient Records regulations: The Federal rules restrict any use of the information to criminally investigate or prosecute any alcohol or drug abuse patient.[facility] HospitalIn the event this information is protected by the Federal Confidentiality of Alcohol and Drug Abuse Patient Records regulations: The Federal rules restrict any use of the information to criminally investigate or prosecute any alcohol or drug abuse patient.[facility] HospitalIn the event this information is protected by the Federal Confidentiality of Alcohol and Drug Abuse Patient Records regulations: The Federal rules restrict any use of the information to criminally investigate or prosecute any alcohol or drug abuse patient.[facility] HospitalIn the event this information is protected by the Federal Confidentiality of Alcohol and Drug Abuse Patient Records regulations: The Federal rules restrict any use of the information to criminally investigate or prosecute any alcohol or drug abuse patient.[facility] HospitalIn the event this information is protected by the Federal Confidentiality of Alcohol and Drug Abuse Patient Records regulations: The Federal rules restrict any use of the information to criminally investigate or prosecute any alcohol or drug abuse patient.[facility] HospitalIn the event this information is protected by the Federal Confidentiality of Alcohol and Drug Abuse Patient Records regulations: The Federal rules restrict any use of the information to criminally investigate or prosecute any alcohol or drug abuse patient.[facility] HospitalIn the event this information is protected by the Federal Confidentiality of Alcohol and Drug Abuse Patient Records regulations: The Federal rules restrict any use of the information to criminally investigate or prosecute any alcohol or drug abuse patient.[facility] HospitalIn the event this information is protected by the Federal Confidentiality of Alcohol and Drug Abuse Patient Records regulations: The Federal rules restrict any use of the information to criminally investigate or prosecute any alcohol or drug abuse patient.[facility] HospitalIn the event this information is protected by the Federal Confidentiality of Alcohol and Drug Abuse Patient Records regulations: The Federal rules restrict any use of the information to criminally investigate or prosecute any alcohol or drug abuse patient.[facility] HospitalIn the event this information is protected by the Federal Confidentiality of Alcohol and Drug Abuse Patient Records regulations: The Federal rules restrict any use of the information to criminally investigate or prosecute any alcohol or drug abuse patient.[facility] Reason for Visit (unrecogniz ed section and content) Reason Onset Date Comments Stroke discharge callback 04/29/2024 Reason Comments CARD 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 REF FOR PFO Reason Comments Preparations For Procedures Reason Comments Hospital Discharge Reason Comments Cardiac Clearance Reason Onset Date Comments Modified [place] Score 07/08/2024 Reason Comments Patient Question Reason Comments Follow Up Specialty Diagnoses / Procedures Referred By Contact Referred To Contact Cerebrovascular / NEUROSURGERY Diagnoses 6 week follow up Procedures EST NI PATIENT Ling Harding APRN.DRAW PRESS OPERATOR [address] [place] [address] CarlitosLing smith APRN.DRAW PRESS OPERATOR [address] [place] [address] Referral ID Status Reason Start Date Expiration Date Visits Re quested Visits Authorized [id number] Closed 07/27/2024 10/25/2024 1 1 Reason Comments Patient Question Specialty Diagnoses / Procedures Referred By Contac t Referred To Contact Diagnoses PFO (patent foramen ovale) PFO (patent foramen ovale) [Q21.12] Procedures PRQ TCAT CLSR CGEN INTRATRL COMUNICAJ W/IMPLT INTRACARD ECHOCARD W/THER/DX IVNTJ INCL IMG S&I PERCUTANEOUS TRANSCATHETER 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 INTRACARDIAC ECHOCARDIOGRAPHY DURING THERAPEUTIC/DIAGNOSTIC INTERVENTION W/ IMAGING SUPERVISION/INTERPRETATION [facility] [employer] [address] [place] [address] Referral ID Status Reason Start Date Expiration Date Visits Re quested Visits Authorized [id number] 1 1 Reason Comments Appointment Aircraft Mechanic Armament - Other Reason Comments Aircraft Mechanic Armament - Other Reason Onset Date Comments Appointment [...] Sat09/11/24 at 0302, NOW (EMERGENT PROCEDURE) FOR VIDEO PRODUCER USE ONLY, Intraprocedure heparin 3,000 Units in NaCl 0.9% 500 mL irrigation 3,000 Units, IRRIGATION, ONE TIME, 1 dose, Starting on Frida 09/10/24 at 1015, Until Sat09/11/24 at 0302, NOW (EMERGENT PROCEDURE) FOR VIDEO PRODUCER USE ONLY For Irrigation Use Only, Intraprocedure [...] BE BASED ON THE PRIMARY CLINICAL RECORDS. [facility] [employer] [facility]. provides no warranty or guarantee of the accuracy or completeness of information in this document.
--- NOTE | 2025-05-11 06:00 | ECHOD_ITS ---
Reason For Study Reason For Study: Chest Pain Procedure This was a 2D Doppler, Color Flow transthoracic echocardiogram. Exam performed in department. Left Ventricle Normal LV size. Left ventricular systolic function is normal. The left ventricular ejection fraction is 65 %. Stage 1 diastolic dysfunction. No regional wall motion abnormalities noted. Right Ventricle Normal RV size. Normal systolic function. Atria Normal left atrium. Normal right atrium. Mitral Valve Normal mitral valve. Mild (1+) mitral valve insufficiency. Tricuspid Valve Normal tricuspid valve. Mild tricuspid valve insufficiency. Pulmonary artery systolic pressure is 21 mmHg. Aortic Valve Normal aortic valve. Trisinus/trileaflet aortic valve. Pulmonic Valve Normal pulmonic valve. Great Vessels Normal aortic root. The pulmonary artery is normal size. Inferior vena cava collapse with respiration. Pericardium/Pleural No pericardial effusion. MMode/2D Measurements & Calculations LVIDd: 4.9 cm IVSd: 1.2 cm Ao root diam: 3.3 cm LVIDs: 3.0 cm LVPWd: 0.94 cm RVDd: 2.9 cm FS: 38.9 % LAV(MOD-bp): 32.8 ml LVAd ap4: 23.3 cm2 SV(MOD-sp4): 35.8 ml LAV(MOD-bp) Indexed: 18.2 ml/m2 LVLd ap4: 7.5 cm SI(MOD-sp4): 19.9 ml/m2 LAV(MOD-sp2): 30.0 ml EDV(MOD-sp4): 58.7 ml LAV(MOD-sp4): 33.3 ml EDV(sp4-el): 61.5 ml LVAs ap4: 12.9 cm2 LVLs ap4: 6.7 cm ESV(MOD-sp4): 22.9 ml ESV(sp4-el): 21.1 ml EF(MOD-sp4): 61.0 % EF(sp4-el): 65.7 % SV(sp4-el): 40.5 ml LA A4 area: 13.4 cm2 LA dimension(2D): 3.6 cm RA A4 area: 12.2 cm2 TAPSE: 2.0 cm Time Measurements MV dec time: 0.19 sec Doppler Measurements & Calculations MV E max evelio: 52.8 cm/sec Lat Peak E' Evelio: 7.4 cm/sec Med Peak E' Evelio: 6.0 cm/sec MV A max evelio: 73.1 cm/sec E/E' lat: 7.1 E/E' med: 8.8 MV E/A: 0.72 MV V2 max: 82.2 cm/sec MV P1/2t max evelio: 53.5 cm/sec Ao V2 max: 120.7 cm/sec MV max P.7 mmHg MV P1/2t: 61.2 msec Ao max P.8 mmHg MV V2 mean: 44.5 cm/sec Ao V2 mean: 86.9 cm/sec MV mean P.94 mmHg MV dec slope: 256.2 cm/sec2 Ao mean P.4 mmHg MV V2 VTI: 16.6 cm MVA(P1/2t): 3.6 cm2 Ao V2 VTI: 27.5 cm AV (velocity ratio): 0.70 LV V1 max: 79.6 cm/sec PA V2 max: 84.6 cm/sec TR max evelio: 210.6 cm/sec LV V1 max P.5 mmHg PA V2 mean: 58.2 cm/sec TR max P.0 mmHg LV V1 mean P.4 mmHg LV V1 mean: 57.1 cm/sec LV V1 VTI: 19.2 cm ECHO/Echo Complete Interpretation Summary Normal LV size. Left ventricular systolic function is normal. The left ventricular ejection fraction is 65 %. Stage 1 diastolic dysfunction. Ordering Physician: Ashli Rosado Referring Physician: Ashli Rosado Performed By: Amrit Sibley RCS
--- NOTE | 2025-05-11 20:21 | STRESSREP ---
Stress Test Report Exercise myocardial perfusion stress test. 69-year-old lady with a history of chest pain and pericardial effusion. Stress protocol: Resting EKG demonstrates normal sinus rhythm with a rate of 65 bpm resting blood pressure is 142/88 mmHg. The patient exercised according to the regular Erik protocol for a total duration of 3 minutes and 45 seconds attaining a maximum heart rate of 150 bpm which was 100% of maximum predicted heart rate; the maximum workload was 6.4 metabolic equivalents. At rest there were no ST or T wave changes noted to suggest ischemia and at peak exercise upsloping ST changes only were noted which did not meet the criteria for ischemia. No clinical angina was noted the test was terminated due to the target heart rate being achieved/fatigue. The peak blood pressure was 178/90 mmHg. Rate-pressure product was 23,000. Myocardial perfusion protocol. 11.9 mCi of technetium 99m sestamibi was injected at rest. The patient exercised according to regular Reik protocol for total duration of 3 minutes and 45 seconds and at peak exercise 35.6 mCi of technetium 99m sestamibi was injected stress images were obtained stress and rest images were reconstructed in comparing the short axis vertical long and horizontal long axis. Gated images were also obtained. Perfusion SPECT analysis: Review of the stress images demonstrate normal uptake of tracer noted in all areas of the myocardium. The resting images similarly demonstrate normal uptake of tracer noted in all areas of the myocardium. No areas of reversibility are noted to suggest ischemia no previous infarct was noted. Gated SPECT analysis: The gated ejection fraction is 72%. Conclusion: Normal exercise myocardial perfusion stress test at a moderate workload.
== END | disposition home or self-care (01) ==
LOC: CVS 05:52
PROVIDERS: PCP Nurse Practitioner; Referring Provider Physician Assistant Medical; Visit Provider Physician Assistant Medical
DX: R07.9 Chest pain, unspecified (principal); I31.39 Other pericardial effusion (noninflammatory)
CPT/HCPCS: 78452; 93017; 93306; A9500; A4216

== ENCOUNTER → 2025-06-22 | Outpatient (CLI) | payer MEDICARE, MEDICAID, SELFPAY ==
[2022-01-25 19:55] VITALS: BMI 31.8
--- NOTE | 2025-06-22 12:51 | CT_ITS ---
PROCEDURE: CT/Chest WITH Contrast
== END | disposition home or self-care (01) ==
LOC: CT 12:48
PROVIDERS: PCP Nurse Practitioner; Referring Provider Nurse Practitioner Family; Visit Provider Nurse Practitioner Family
DX: R07.9 Chest pain, unspecified (principal); C50.311 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 female breast; Z17.0 Estrogen receptor positive status [ER+]
CPT/HCPCS: 71260; Q9967

== ENCOUNTER 2025-06-24 10:09 | Day surgery (SDC) | payer MEDICARE, MEDICAID, SELFPAY ==
[2022-01-25 19:55] VITALS: BMI 31.8
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
[2025-06-24] VITALS (8 sets, daily range): BP systolic 105–155; BP diastolic 81–98; PULSE 71–86; RESP 16; TEMP 36.6–37.2; O2SAT 95–98; BMI 34.4
[2025-06-24] MEDS: Lactated Ringers 1,000 ML 15 ML IV (10:32)
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
--- NOTE | 2025-06-24 11:15 | EGD_PTH ---
PATIENT: BO JACOB LOC: EN U#:[id number] AGE/SX: 69/F ROOM: RE06/24/[address]: Dr. Vern Lott DO : 1955 BED: DIS: 06/24/2025 SPEC #: [id number] RECD: 06/24/25 12:15 STATUS: [place] LAINE #: [id number] TAQUERIA: 06/24/25 11:[address]: Vern Lott DEPT: SURGICAL PATHOLOGY RECD BY: Dani Whiteside ENTERED: 06/24/25 13:53 SP TYPE: EGD BIOPSY EDUARDO DR: Loan Dias, [employer] Tissues: A - Esophagus, NOS B - Gastric mucous membrane C - Duodenum, NOS Procedures: Surgery Specimen Level IV HEADER OPERATION: EGD, biopsy PRE-OP DIAGNOSIS: Chest pain, esophageal reflux TISSUE SUBMITTED: A- Distal esophagus biopsy, B- Gastric body biopsy, C- Duodenum biopsy MICROSCOPIC DIAGNOSIS A. Distal esophagus, biopsy: - Squamous mucosa with no specific pathologic change; negative for eosinophils. - Columnar mucosa with features of reactive gastropathy; negative for goblet cell metaplasia. B. Gastric body, biopsy: - Oxyntic mucosa with features of reactive gastropathy. - Negative for Helicobacter-like organisms (H&E). C. Duodenum, biopsy: - Normal villous architecture with no specific pathologic change. - Negative for increased intraepithelial lymphocytes. MICROSCOPIC DESCRIPTION Slides are reviewed. GROSS DESCRIPTION A. Received in fixative is one container labeled with the patient's name and designated "Distal esophagus biopsy." The specimen consists of two irregular fragments of soto tissue, each measuring 0.4 cm. The specimen is totally submitted in one cassette. B. Received in fixative is one container labeled with the patient's name and designated "Gastric body biopsy." The specimen consists of one irregular fragment of soto tissue that measures 0.4 cm. The specimen is totally submitted in one cassette. C. Received in fixative is one container labeled with the patient's name and designated "Duodenum biopsy." The specimen consists of one irregular fragment of soto tissue that measures 0.6 cm. The specimen is totally submitted in one cassette. MT 06/24/2025 CPT:94697x0
--- NOTE | 2025-06-24 12:06 | PCM.POST.ANE ---
Anesthesia: Postop Eval I Current Vital Signs Temperature: 98.9 F Pulse Rate: 85 Blood Pressure: 105/90 Respiratory Rate: 16 Pulse Ox: 98 Oxygen Delivery Method: Room Air Assessment Airway patent: Yes Spontaneous unlabored respirations: Yes Mental status: Awake and Calm nausea: No Vomiting: No Anesthesia Complication: No Fluid Hydration Crystalloid volume administer (ml): 400 Total IV fluid infused: 400 Progress Note Anesthesia document: Postop Eval 1 completed: Yes
--- NOTE | 2025-06-24 12:09 | OP.EGD_ITS ---
Patient Name: Juliet Monteiro Procedure Date: 06/24/2025 11:32 AM Date of : 1955 Age: 69 Procedure: Upper GI endoscopy Indications: Functional Dyspepsia, Failure to respond to medical treatment, Unexplained chest pain, Chest pain (non cardiac) Providers: Vern Lott DO Referring MD: Loan Dias NP Medicines: Monitored Anesthesia Care Patient Profile: This is a 69 year old female. Refer to note in patient chart for documentation of history and physical. Patient has symptoms of acute epigastric abdominal pain, chronic chest pain and chronic nausea. Complications: No immediate complications. Procedure: Pre-Anesthesia Assessment: - Prior to the procedure, a History and Physical was performed, and patient medications and allergies were reviewed. The patient is competent. The risks and benefits of the procedure and the sedation options and risks were discussed with the patient. All questions were answered and informed consent was obtained. Patient identification and proposed procedure were verified by the physician in the pre-procedure area. Mental Status Examination: alert and oriented. Airway Examination: normal oropharyngeal airway and neck mobility. Respiratory Examination: clear to auscultation. CV Examination: normal. Prophylactic Antibiotics: The patient does not require prophylactic antibiotics. Prior Anticoagulants: The patient has taken no anticoagulant or antiplatelet agents except for NSAID medication. ASA Grade Assessment: II - A patient with mild systemic disease. After reviewing the risks and benefits, the patient was deemed in satisfactory condition to undergo the procedure. The anesthesia plan was to use monitored anesthesia care (MAC). Immediately prior to administration of medications, the patient was re-assessed for adequacy to receive sedatives. The heart rate, respiratory rate, oxygen saturations, blood pressure, adequacy of pulmonary ventilation, and response to care were monitored throughout the procedure. The physical status of the patient was re-assessed after the procedure. After obtaining informed consent, the endoscope was passed under direct vision. Throughout the procedure, the patient's blood pressure, pulse, and oxygen saturations were monitored continuously. The Endoscope was introduced through the mouth, and advanced to the third part of the duodenum. Small bowel enteroscopy was deemed necessary. The upper GI endoscopy was accomplished without difficulty. The patient tolerated the procedure well. Scope In: 11:48:16 AM Scope Out: 11:53:01 AM Total Procedure Duration Time 0 hours 4 minutes 45 seconds Findings: Abnormal motility was noted in the lower third of the esophagus. The cricopharyngeus was normal. There are extra peristaltic waves in the esophageal body. The distal esophagus/lower esophageal sphincter is spastic, but gives up passage to the endoscope. Secondary peristaltic waves are noted. Biopsies were taken with a cold forceps for histology. Patchy mildly erythematous mucosa without bleeding was found in the gastric body. Biopsies were taken with a cold forceps for histology. Biopsies were taken with a cold forceps for Helicobacter pylori testing. No gross lesions were noted in the entire examined duodenum. Biopsies were taken with a cold forceps for histology. Verification of patient identification for the specimen was done. Estimated blood loss was minimal. Impression: - Abnormal esophageal motility. Biopsied. - Erythematous mucosa in the gastric body. Biopsied. - No gross lesions in the entire examined duodenum. Biopsied. Recommendation: - Discharge patient to home. - Resume previous diet. - Continue present medications. - Await pathology results. - Esophageal manometry Procedure Code(s): --- Professional --- 02172, Small intestinal endoscopy, enteroscopy beyond second portion of duodenum, not including ileum; with biopsy, single or multiple CPT copyright 2021 [employer]. All rights reserved. The codes documented in this report are preliminary and upon tool carrier review may be revised to meet current compliance requirements. Vern Lott DO 06/24/2025 12:09:27 PM This report has been signed electronically. Number of Addenda: 0 Note Initiated On: 06/24/2025 11:32 AM
--- NOTE | 2025-06-24 12:10 | OP.PROVAT_ITS ---
06/24/2025 Loan Dias NP [facility] [address] [address] Re : Upper GI endoscopy procedure for Juliet Monteiro Dear Ms. Dias This procedure was performed on June. My impressions and recommendations are as follows: Impressions : - Abnormal esophageal motility. Biopsied. - Erythematous mucosa in the gastric body. Biopsied. - No gross lesions in the entire examined duodenum. Biopsied. Recommendations : - Discharge patient to home. - Resume previous diet. - Continue present medications. - Await pathology results. - Esophageal manometry My findings are described in the full procedure note, which is enclosed. If I can be of further assistance, please feel free to contact me at . Sincerely, Vern Lott, 06/24/2025 12:09:27 PM This report has been signed electronically.
--- NOTE | 2025-06-24 15:14 | PCM.POSTANE2 ---
Anesthesia Postop Eval I Sum Postop Eval Completion status Anesthesia document: Postop Eval 1 completed: Yes Anesthesia Postop Eval I Summary Anesthesia Postop Eval I Summary: Anesthesia Postop Eval I: Assessment Summary Airway patent Yes 06/24/25 12:07 [email or web address] Spontaneous unlabored Yes 06/24/25 12:07 [email or web address] respirations Mental status Awake,Calm 06/24/25 12:07 [email or web address] nausea No 06/24/25 12:07 [email or web address] Vomiting No 06/24/25 12:07 [email or web address] Anesthesia Postop Eval I: Fluid Summary Crystalloid volume administer 400 06/24/25 12:07 [email or web address] (ml) Colloids volume administered ( ml) Blood Product volume administered (ml) Total IV fluid infused 400 06/24/25 12:07 [email or web address] Anesthesia Postop Eval I: Summary Notes Anesthesia Complication No 06/24/25 12:07 [email or web address] Anesthesia Complication Comment: Post-operative progress note Anesthesia: Postop Eval II Evaluation Mental status: Awake Pain Level: 0 nausea: No Vomiting: No Complications Anesthesia Complication: No
== END 2025-06-24 12:43 | disposition home or self-care (01) ==
LOC: EN 10:10 → AC 10:12
PROVIDERS: PCP Nurse Practitioner; Referring Provider Nurse Practitioner; Visit Provider Internal Medicine Gastroenterology
DX: R10.9 Unspecified abdominal pain (principal); I48.0 Paroxysmal atrial fibrillation; K21.9 Gastro-esophageal reflux disease without esophagitis; F41.9 Anxiety disorder, unspecified; I10 Essential (primary) hypertension; Z85.3 Personal history of malignant neoplasm of breast; Z92.3 Personal history of irradiation; Z79.01 Long term (current) use of anticoagulants; Z79.899 Other long term (current) drug therapy; Z79.82 Long term (current) use of aspirin; R19.4 Change in bowel habit; R07.9 Chest pain, unspecified; K30 Functional dyspepsia; K31.89 Other diseases of stomach and duodenum
CPT/HCPCS: 44361; 88305; J2405

== ENCOUNTER 2025-07-09 07:11 | Day surgery (SDC) | payer MEDICARE, MEDICAID, SELFPAY ==
[2022-01-25 19:55] VITALS: BMI 31.8
[2025-07-09] MEDS: Lidocaine Jelly 2% 20 ML Syringe (URO-JET) 1 APPLIC (07:27)
--- OUTSIDE RECORDS SUMMARY | 2025-07-09 07:30 | XMS RPT_ITS | CCD ---
Author Organization [facility] CliniSyms Care Team Providers Care Polish Compounder Name Role Phone DIAS, LOAN L Unavailable Unavailable DIAS, LOAN L Unavailable Unavailable DIAS, LOAN L Unavailable Unavailable KHAYATA, MOHAMED Unavailable Unavailable ANDREA, RAVKIRAN (RES) Unavailable Unavaila ble RIO BARR Unavailable Unavailable REUSCH ROSSY (PT) Unavailable Unavailable ANDREA, RAVKIRAN (RES) Unavailable Unavaila ble REUSCH ROSSY (PT) Unavailable Unavailable ANDREA, RAVKIRAN (RES) Unavailable Unavaila ble Dias COMMAND AND CONTROL SPECIALIST, COMMAND AND CONTROL SPECIALIST-C Loan Primary Care Provider Arun COMMAND AND CONTROL SPECIALIST, COMMAND AND CONTROL SPECIALIST-C Loan Referring Provider Dr. Antonia Escalante Attending Provider Dr. João Kong Attending Provider [phone] Dominick Villalpando Attending Provider Dr. Antonia Escalante Referring Provider Dr. Nico Hook Attending Provider Arun COMMAND AND CONTROL SPECIALIST, COMMAND AND CONTROL SPECIALIST-C Loan Primary Care Provider Arun COMMAND AND CONTROL SPECIALIST, COMMAND AND CONTROL SPECIALIST-C Loan Referring Provider John COMMAND AND CONTROL SPECIALIST, COMMAND AND CONTROL SPECIALIST-C Verónica Attending Provider [phone] Dr. Raymond Lagos Attending Provider [phone] João Kong Attending Provider Gilma Hickey Attending Provider Unavailable Dr. Dia Tobin Attending Provider Dr. Dia Tobin Other Provider Arun COMMAND AND CONTROL SPECIALIST, COMMAND AND CONTROL SPECIALIST-C Loan Primary Care Provider Dias COMMAND AND CONTROL SPECIALIST, COMMAND AND CONTROL SPECIALIST-C Loan Referring Provider Dr. Antonia Escalante Attending Provider Dr. João Kong Attending Provider Dias COMMAND AND CONTROL SPECIALIST, COMMAND AND CONTROL SPECIALIST-C Loan Primary Care Provider Dias COMMAND AND CONTROL SPECIALIST, COMMAND AND CONTROL SPECIALIST-C Loan Referring Provider John COMMAND AND CONTROL SPECIALIST, COMMAND AND CONTROL SPECIALIST-C Verónica Attending Provider Lisa Harper Attending Provider UnavailDr. Nico Lincoln Attending Provider Dias COMMAND AND CONTROL SPECIALIST, COMMAND AND CONTROL SPECIALIST-C Loan Primary Care Provider Dias COMMAND AND CONTROL SPECIALIST, COMMAND AND CONTROL SPECIALIST-C Loan Referring Provider Dr. Antonia Escalante Attending Provider Dias COMMAND AND CONTROL SPECIALIST, COMMAND AND CONTROL SPECIALIST-C Loan Primary Care Provider Dias COMMAND AND CONTROL SPECIALIST, COMMAND AND CONTROL SPECIALIST-C Loan Referring Provider John COMMAND AND CONTROL SPECIALIST, COMMAND AND CONTROL SPECIALIST-C Verónica Attending Provider Dr. Raymond Lagos Attending Provider Dr. Dia Tobin Attending Provider Dias COMMAND AND CONTROL SPECIALIST, COMMAND AND CONTROL SPECIALIST-C Loan Primary Care Provider Dr. João Kong Attending Provider Dias COMMAND AND CONTROL SPECIALIST, COMMAND AND CONTROL SPECIALIST-C Loan Referring Provider Dr. Raymond Lagos Attending Provider Dr. Nico Hook Attending Provider John COMMAND AND CONTROL SPECIALIST, COMMAND AND CONTROL SPECIALIST-C Verónica Attending Provider Ashlee ROY, KIRILL Mullins Attending Provider Dias COMMAND AND CONTROL SPECIALIST, COMMAND AND CONTROL SPECIALIST-C Loan Primary Care Provider Dias COMMAND AND CONTROL SPECIALIST, COMMAND AND CONTROL SPECIALIST-C Loan Referring Provider Dr. Raymond Lagos Attending Provider Dr. Nico Hook Attending Provider Dr. Antonia Escalante Attending Provider Arun COMMAND AND CONTROL SPECIALIST, COMMAND AND CONTROL SPECIALIST-C Loan Primary Care Provider Dias COMMAND AND CONTROL SPECIALIST, COMMAND AND CONTROL SPECIALIST-C Loan Referring Provider Ashlee ROY, PA Ashli Mullins Attending Provider Dr. aRymond Lagos Attending Provider Dr. Nico Hook Attending Provider Dr. Antonia Escalante Attending Provider Dr. João Kong Attending Provider Dr. Raymond Lagos Other Provider Dr. Ashley Luna Primary Care Provider Dr. Ashley Luna Referring Provider Arun COMMAND AND CONTROL SPECIALIST, COMMAND AND CONTROL SPECIALIST-C Loan Primary Care Provider Dias COMMAND AND CONTROL SPECIALIST, COMMAND AND CONTROL SPECIALIST-C Loan Referring Provider Ashlee ROY, PA Ashli Mullins Attending Provider Arun [employer], Loan L Primary Care Provide r Dias COMMAND AND CONTROL SPECIALIST-C, Loan Primary Care Provider Arun COMMAND AND CONTROL SPECIALIST-C, Loan Referring Provider Dr. Raymond Lagos DO Attending Provider Dr. Nico Hook MD Attending Provider John COMMAND AND CONTROL SPECIALIST-C, Verónica Attending Provider Dr. Antonia Escalante MD Attending Provider Dr. Yogesh Haque MD Referring Provider Dr. João Kong DO Other Provider Arun COMMAND AND CONTROL SPECIALIST-C, Loan Attending Provider Dr. Mariajose Barclay MD Attending Provider Dr. Mariajose Barclay MD Referring Provider Dr. João Kong DO Attending Provider Ava LEIVA, Dr. Knight Referring Provider Dias COMMAND AND CONTROL SPECIALIST-C, Loan Primary Care Provider Dias COMMAND AND CONTROL SPECIALIST-C, Loan Referring Provider John COMMAND AND CONTROL SPECIALIST-C, Verónica Attending Provider Ava LEIVA, Dr. Knight Attending Provider Dr. Yogesh Haque MD Referring Provider Dr. João Kong DO Other Provider Dr. Raymond Lagos DO Attending Provider Joselo LEIVA, Dr. Catalan Attending Provider [phone] Saloni LEIVA, Dr. Rivas Emergency Provider Dominick COMMAND AND CONTROL SPECIALIST-C, Radha Attending Provider Dias COMMAND AND CONTROL SPECIALIST-C, Loan Primary Care Provider Dias COMMAND AND CONTROL SPECIALIST-C, Loan Referring Provider Dr. Rob Guallpa MD Attending Provider Dias COMMAND AND CONTROL SPECIALIST-C, Loan Attending Provider Miladys LEIVA, Dr. Walsh Attending Provider [phone] DIAS, LOAN L Primary Care Unavailable JARRED SUH Attending Unavailabl e DIAS, LOAN L Primary Care Unavailable VITEBSKIY, FRANCISCO ALEKSANDROVICH Referring Unavailable VITEBSKLizettY, FRANCISCO MAGDALENEH Attending Unavailable VITEBSKIY, FRANCISCO ALEKSANDROVICH Admitting Unavailable DIAS, LOAN L Primary Care Unavailable ANNAMARIA, YASSAR Referring Unavailable ANNAMARIA, YASSAR Attending Unavailable ANNAMARIA, YASSAR Admitting Unavailable DIAS, LOAN L Primary Care Unavailable JARRED SUH Attending Unavailabl e DIAS, LOAN L Primary Care Unavailable KISHAN PIEDRA Referring Unavailable KISHAN PIEDRA Attending Unavailable KISHAN PIEDRA Admitting Unavailable DIAS, LOAN L Primary Care Unavailable DIAS, LOAN L Primary Care Unavailable DIAS, LOAN L Primary Care Unavailable FRANCISCO GORMAN Consulting Unavailable AKIKO CRANE Attending Unavailable DIAS, LOAN L Primary Care Unavailable JESS CAST Referring Unavailable YUE II, CAMI Admitting Unavailable DIAS, LOAN L Primary Care Unavailable JARRED SUH Attending Unavailabl e CONKLE-LAGROUX, RANDA Attending Unavaila ble DIAS, LOAN L Primary Care Unavailable DIAS, LOAN L Primary Care Unavailable SELF Referring Unavailable KANAA'N, SMITH Attending Unavailable DIAS, LOAN L Primary Care Unavailable FRANCISCO GORMAN Attending Unavailable DIAS, LOAN L Primary Care Unavailable KANAA'N, SMITH Referring Unavailable KANAA'N, SMITH Attending Unavailable KANAA'N, SMITH Admitting Unavailable DIAS, LOAN L Primary Care Unavailable LING HARDING Attending Unavailable CONKLE-LAGROUX, RANDA Attending Unavaila ble DIAS, LOAN L Primary Care Unavailable DIAS, LOAN L Primary Care Unavailable KANAA'N, SMITH Referring Unavailable DIAS, LOAN L Primary Care Unavailable DIAS, LOAN L Primary Care Unavailable KANAA'N, SMITH Attending Unavailable DIAS, LOAN L Primary Care Unavailable MIKLING VANN M Referring Unavailable MIKULALING M Attending Unavailable Dias COMMAND AND CONTROL SPECIALIST-C, Loan Primary Care Physician [phone] Dr. Raymond Lagos DO Attending Physician Dr. Hossein Josue MD Attending Physician Dr. Rob Guallpa MD Attending Physician Dr. Rob Guallpa MD Emergency Department [facility] Dominick COMMAND AND CONTROL SPECIALIST-CRadha Attending Physician Arun COMMAND AND CONTROL SPECIALIST-C, Loan Attending Physician Dr. Nico Hook MD Attending Physician Ashli Raza Attending Physician Ashli Raza Referring Provider John COMMAND AND CONTROL SPECIALIST-C, Verónica Attending Physician Ava LEIVA, Dr. Knight Attending Physician Dr. Yogesh Haque MD Referring Provider Luann BRITTON, Dr. Moyer Nurse Practitioner John COMMAND AND CONTROL SPECIALIST-C, Verónica Nurse Practitioner Dr. João Kong DO Attending Physician Dias COMMAND AND CONTROL SPECIALIST, Loan Primary Care Unavailable Nico Hook Attending Unavailable Dias COMMAND AND CONTROL SPECIALIST, Loan Referring Unavailable João Kong Attending Unavailable Dias COMMAND AND CONTROL SPECIALIST, Loan Primary Care Unavailable Dias COMMAND AND CONTROL SPECIALIST, Loan Referring Unavailable John COMMAND AND CONTROL SPECIALIST, Verónica Attending Unavailable Dias COMMAND AND CONTROL SPECIALIST, Loan Primary Care Unavailable Dias COMMAND AND CONTROL SPECIALIST, Loan Referring Unavailable Dia Tobin Attending Unavailable Dias COMMAND AND CONTROL SPECIALIST, Loan Primary Care Unavailable Dias COMMAND AND CONTROL SPECIALIST, Loan Primary Care Unavailable John COMMAND AND CONTROL SPECIALIST, Verónica Referring Unavailable John COMMAND AND CONTROL SPECIALIST, Verónica Attending Unavailable Dias COMMAND AND CONTROL SPECIALIST, Loan Primary Care Unavailable Antonia Escalante Attending Unavailable Isckarus, Mansour Referring Unavailable Dias COMMAND AND CONTROL SPECIALIST, Loan Primary Care Unavailable João Kong Attending Unavailable John COMMAND AND CONTROL SPECIALIST, Verónica Attending Unavailable Dias COMMAND AND CONTROL SPECIALIST, Loan Referring Unavailable Dias COMMAND AND CONTROL SPECIALIST, Loan Primary Care Unavailable Radha Tan Attending Unavailable Dias COMMAND AND CONTROL SPECIALIST, Loan Referring Unavailable Dias COMMAND AND CONTROL SPECIALIST, Loan Primary Care Unavailable Dias COMMAND AND CONTROL SPECIALIST, Loan Primary Care Unavailable Nico Hook Attending Unavailable Dias COMMAND AND CONTROL SPECIALIST, Loan Primary Care Unavailable Isckarus, Mansour Referring Unavailable IscBeena armendarizour Attending Unavailable Dias COMMAND AND CONTROL SPECIALIST, Loan Primary Care Unavailable Ashli Raza Referring Unavail able Ashli Raza Attending Unavail able Mariajose Barclay Attending Unavailable Dias COMMAND AND CONTROL SPECIALIST, Loan Primary Care Unavailable Mariajose Barclay Referring Unavailable Dias COMMAND AND CONTROL SPECIALIST, Loan Primary Care Unavailable John COMMAND AND CONTROL SPECIALIST, Verónica Attending Unavailable John COMMAND AND CONTROL SPECIALIST, Verónica Referring Unavailable Dias COMMAND AND CONTROL SPECIALIST, Loan Primary Care Unavailable Rob Guallpa Attending Unavailable Radha Tan Attending Unavailable Dias COMMAND AND CONTROL SPECIALIST, Loan Primary Care Unavailable Dias COMMAND AND CONTROL SPECIALIST, Loan Referring Unavailable Hossein Josue Attending Unavailable Dias COMMAND AND CONTROL SPECIALIST, Loan Primary Care Unavailable Dias COMMAND AND CONTROL SPECIALIST, Loan Referring Unavailable Dias COMMAND AND CONTROL SPECIALIST, Loan Referring Unavailable Vern Lott Attending Unavailable Dias COMMAND AND CONTROL SPECIALIST, Loan Primary Care Unavailable Dias COMMAND AND CONTROL SPECIALIST, Loan Primary Care Unavailable Ashlee ROY, Ashli Mullins Referring Unavail able Ashli Raza Attending Unavail able João Kong Consulting Unavailable Dias COMMAND AND CONTROL SPECIALIST, Loan Primary Care Unavailable Antonia Escalante Attending Unavailable Yogesh Haque Referring Unavailable John COMMAND AND CONTROL SPECIALIST, Verónica Consulting Unavailable Dias COMMAND AND CONTROL SPECIALIST, Loan Primary Care Unavailable Vern Lott Attending Unavailable Dias COMMAND AND CONTROL SPECIALIST, Loan Primary Care Unavailable Dias COMMAND AND CONTROL SPECIALIST, Loan Referring Unavailable Raymond Lagos Attending Unavailable John COMMAND AND CONTROL SPECIALIST, Verónica Attending Unavailable Dias COMMAND AND CONTROL SPECIALIST, Loan Primary Care Unavailable Dias COMMAND AND CONTROL SPECIALIST, Loan Referring Unavailable Dias COMMAND AND CONTROL SPECIALIST, Loan Primary Care Unavailable Nico Hook Attending Unavailable Dias COMMAND AND CONTROL SPECIALIST, Loan Primary Care Unavailable Dias COMMAND AND CONTROL SPECIALIST, Loan Referring Unavailable Hossein Josue Attending Unavailable Dias COMMAND AND CONTROL SPECIALIST, Loan Primary Care Unavailable Nico Hook Attending Unavailable Dias COMMAND AND CONTROL SPECIALIST, Loan Primary Care Unavailable Dias COMMAND AND CONTROL SPECIALIST, Loan Referring Unavailable Vern Lott Attending Unavailable FriendVern Consulting Unavailable Dias COMMAND AND CONTROL SPECIALIST, Loan Referring Unavailable Dias COMMAND AND CONTROL SPECIALIST, Loan Primary Care Unavailable Raymond Lagos Attending Unavailable Dias COMMAND AND CONTROL SPECIALIST-C, Loan Primary Care Physician Dias COMMAND AND CONTROL SPECIALIST-C, Loan Referring Provider Dr. Raymond Lagos DO Attending Physician Dr. Hossein Josue MD Attending Physician Dr. Rob Guallpa MD Attending Physician Dr. Rob Guallpa MD Emergency Department [facility] Dominick COMMAND AND CONTROL SPECIALIST-CRadha Attending Physician Dias COMMAND AND CONTROL SPECIALIST-C, Loan Attending Physician Dr. Nico Hook MD Attending Physician [phone] Ashli Raza Attending Physician Ashli Raza Referring Provider John LOYOLA-C, Verónica Attending Physician Ava LEIVA, Dr. Knight Attending Physician Shabnam LEIVA, Dr. Zuñiga Referring Provider [phone] Luann BRITTON, Dr. Moyer Nurse Practitioner John LOYOLA-C, Verónica Nurse Practitioner Dr. João Kong DO Attending Physician John LOYOLA-C, Verónica Referring Provider Kaylie BRITTON, Dr. Porras Attending Physician Kaylie BRITTON, Dr. Porras Nurse Practitioner Allergies Allergy Classification Reported Allergen(s) Allergy Type Date of Onset Reaction(s) Facility (20 sources) Adhesive Tape; Translations: [adhesive tape] Allergy to substance 2 Hives [facility] (20 sources) anastrozole Drug Allergy 2 joint pain, anxiety, hot flashes [facility] (20 sources) oxyCODONE Drug Allergy 2 [facility] (4 sources) Acetaminophen Drug Allergy 4 [facility] (4 sources) HYDROcodone Drug Allergy 4 [facility] (20 sources) Acetaminophen / oxyCODONE; Translations: [OXYCODONE-ACETAM INOPHEN] Drug Allergy 0 [facility] (20 sources) Adhesive Tape-Silicones; Translations: [ADHESIVE TAPE-SILICONES] Drug Allergy 0 [facility] (1 source) Acetaminophen Drug Allergy 5 [facility] (1 source) anastrozole Drug Allergy 5 [facility] (1 source) HYDROcodone Drug Allergy 5 [facility] (1 source) oxyCODONE Drug Allergy 5 [facility] Medications Current Medications Medication Drug Class(es) Dates Sig (Normalized) Sig (Original) apixaban 5 mg oral tablet (20 sources) Factor Xa Inhibitor Start: 09-30-2024 End: 10-23-2025 take 1 tablet by mouth twice daily Apixaban (Eliquis) 5 mg tablet Discontinued 5 mg PO TWICE A DAY October 08, 2024 12:00am June 25, 2025 9:43am ascorbic acid 500 mg oral tablet (10 sources) Vitamin C take 1 tablet by mouth twice daily ascorbic acid, vitamin C, (VITAMIN C) 500 mg tablet Take 500 mg by mouth two times a day. Active aspirin 81 mg delayed release oral tablet (20 sources) Platelet Aggregation Inhibitor, Nonsteroidal Anti-inflammatory Drug Start: 06-18-2025 take 1 tablet by mouth once daily Start: 04-24-2024 End: 06-09-2024 take 1 tablet by mouth once daily aspirin 81 mg chewable tablet 1 tablet by ORAL/FEEDING TUBE route once daily for 20 doses. 20 tablet 04/24/2024 06/09/2024 Discontinued (Course of therapy completed) Start: 07-18-2021 End: 04-08-2025 Aspirin (Corky Low Dose Aspi rin) 81 mg tablet,delayed release (DR/EC) Discontinued 81 mg PO DAILY July 18, 2021 12:00am April 08, 2025 8:27am End: 09-10-2024 take 81 mg by mouth once aspirin (ASPIR-81 ORAL) Take 81 mg by mouth one time only. 09/10/2024 Discontinued (Course of therapy completed) aspirin 81 mg ch ewable tablet aspirin 81 mg chewable tablet Suspended calcium acetate 667 mg oral tablet (8 sources) Start: 03-10-2025 take 1 tablet by mouth once calcium ascorbate 500 mg oral tablet (8 sources) Start: 03-10-2025 take 1 tablet by mouth once daily calcium carbonate 1250 mg / cholecalciferol 600 [...] mouth once daily. Suspended cholecalciferol 0.125 mg ora l tablet (20 sources) Vitamin D Start: 11-18-2023 take 1 tablet by jeanine th once daily take 1 tablet by mouth once carl y cholecalciferol (VITAMIN D3) 1,000 unit tab tablet Take 1,000 Units by mouth once daily. Active 24 hr dilTIAZem hydrochloride 180 mg extended release oral capsule (20 sources) Calcium Channel Lamont Start: 06-25-2025 take 1 capsule by mouth once daily, then take 1 capsule by mouth every twenty-four hours Start: 04-09-2025 End: 04-14-2025 take 1 capsule by mouth twice daily, then take 1 capsule by mouth every twenty-four hours Diltiazem Hcl (Cardizem Cd) 180 mg capsule,extended release 24hr Discontinued 180 mg PO TWICE A DAY April 09, 2025 2:14pm April 14, 2025 1:57pm Start: 03-12-2025 End: 04-09-2025 take 1 capsule by mouth once daily, then take 1 capsule by mouth every twenty-four hours Diltiazem Hcl (Cardizem Cd) 180 mg capsule,extended release 24hr Discontinued 180 mg PO daily 90 March 11, 2025 11:00pm April 09, 2025 2:14pm Start: 10-01-2024 End: 10-23-2025 take 1 capsule by mouth once daily in the morning, then take 1 capsule by mouth every twenty-four hours Diltiazem Hcl (Cardizem Cd) 360 mg capsule,extended release 24hr Discontinued 360 mg PO EVERY MORNING October 08, 2024 12:00am March 12, 2025 11:19am meclizine hydrochloride 25 mg oral tablet (20 sources) Antiemetic Start: 01-21-2022 take 25 mg by mouth three times daily Meclizine Active 25 MG PO THREE TIMES A DAY January 21, 2022 2:27pm Start: 03-19-2018 End: 05-26-2019 take 2 tablets by mouth three times daily Meclizine 25 mg tablet,chewable Discontinued 50 mg PO THREE TIMES A DAY March 18, 2018 11:00pm May 26, 2019 4:47pm Start: 03-19-2018 End: 05-26-2019 take 50 mg by mouth three times daily Meclizine Discontinued 50 MG PO THREE TIMES A DAY March 19, 2018 12:00am May 26, 2019 5:47pm Jiaudyuqpexn-Cyxz-Icxzu Acid (13 sources) Start: 06-13-2020 Multivitamin-I joelle-Folic Acid Active 1 EACH PO DAILY June 13, 2020 11:01am Start: 06-13-2020 Multivitamin-I joelle-Folic Acid Active 1 EACH PO DAILY June 12, 2020 11:00pm Start: 06-13-2020 Multivitamin-I joelle-Folic Acid Active 1 EACH PO DAILY June 13, 2020 12:00am pantoprazole 40 mg delayed r elease oral tablet (20 sources) Proton Pump Inhibitor Start: 06-03-2025 Start: 06-03-2025 Start: 10-01-2024 End: 06-03-2025 take 1 tablet by mouth once daily Pantoprazole (Protonix) 20 mg tablet,delayed release (DR/EC) Discontinued 20 mg PO daily 90 3 October 28, 2024 7:44pm June 03, 2025 7:03am Start: 04-27-2021 take 1 tablet by jeanine th once daily, then take 6 tablets by mouth in the morning pantoprazole DR (PROTONIX) 40 mg tablet Take 1 tablet by mouth DAILY (6 AM). 30 tablet 04/27/2021 Suspended prochlorperazine 10 mg oral tablet (12 sources) [...] 04/26/2021 Suspended take 2 tablets by mo [facility] every six hours as needed acetaminophen (TYLENOL) [...] 0 December 03, 2023 December 16, 2023 6:58am Other acute postprocedural pain Other acute postprocedural pain Start: 12-03-2023 End: 12-16-2023 take 1 tablet by mouth every four hours Hydrocodone-Acetaminophen Discontinued 1 - 2 TABLET PO Q4H 30 5 December 03, 2023 December 16, 2023 7:58am Start: 07-20-2021 End: 10-18-2021 Hydrocodone-Acetaminophen (N orco) 5-325 mg Tablet Discontinued 1 {tbl} PO TWICE A DAY as needed for Pain July 20, 2021 12:00am October 18, 2021 10:54am [id number] actuat albuterol 0.09 mg/actuat metered dose inhaler (1 source) beta2-Adrenergic Agonist Start: 04-24-2021 take 2 puff(s) by inhalation every four hours as needed for wheezing albuterol HFA (PROVENTIL HFA, VENTOLIN HFA) 90 mcg/actuation inhaler Inhale 2 Puffs as instructed every 4 hours as needed for wheezing/shortness of breath. 04/24/2021 Suspended algeaCal (14 sources) Start: 11-18-2023 End: 10-08-2024 algeaCal Discontinued 2 NMA PO THREE TIMES A DAY November 17, 2023 11:00pm October 08, 2024 5:49pm Start: 11-18-2023 End: 10-08-2024 algeaCal Discontinued 2 NMA PO THREE TIMES A DAY November 18, 2023 12:00am October 08, 2024 6:49pm Start: 11-18-2023 take 2 capsules by m outh three times daily algeaCal Active 2 CAP PO THREE TIMES A DAY November 18, 2023 12:00am amiodarone hydrochloride 400 mg oral tablet (18 sources) Antiarrhythmic Start: 09-30-2024 End: 02-09-2025 take 1 tablet by mouth once daily Amiodarone 400 mg tablet Discontinued 400 mg PO daily October 08, 2024 12:00am December 14, 2024 2:34pm amLODIPine 2.5 mg oral tablet (20 sources) Dihydropyridine Calcium Channel Lamont Start: 08-30-2023 End: 09-23-2023 take 1 tablet by mouth once daily Amlodipine 2.5 mg tablet Discontinued 2.5 mg PO DAILY 90 3 August 30, 2023 12:00am September 23, 2023 10:42am Start: 07-29-2023 End: 08-30-2023 take 1 tablet by mouth once daily Amlodipine 5 mg tablet Discontinued 5 mg PO DAILY 90 0 July 29, 2023 12:00am August 30, 2023 12:21pm Start: 04-21-2019 End: 07-29-2020 take 1 tablet by mouth once daily Amlodipine 2.5 mg tablet Discontinued 2.5 mg PO DAILY 90 May 16, 2020 2:59pm July 29, 2020 9:46am Start: 03-25-2018 End: 05-26-2019 take 1 tablet by mouth once daily Amlodipine 5 mg tablet Discontinued 5 mg PO daily 30 March 25, 2018 7:16pm May 26, 2019 4:46pm amoxicillin 875 mg oral tablet (20 sources) Penicillin-class Antibacterial Start: 03-25-2018 End: 05-26-2019 take 1 tablet by mouth twice daily Amoxicillin 875 mg tablet Discontinued 875 mg PO TWICE A DAY 20 March 24, 2018 11:00pm May 26, 2019 4:47pm amoxicillin 875 mg / clavulanate 125 mg oral tablet (20 sources) Penicillin-class Antibacterial Start: 01-25-2022 End: 01-29-2022 Amoxicillin-Pot Clavulanate 875-125 mg tablet Discontinued 1 {tbl} PO TWICE A DAY January 24, 2022 11:00pm January 29, 2022 7:43am Start: 01-25-2022 End: 01-29-2022 take 1 tablet by mouth twice daily Amoxicillin-Pot Clavulanate Discontinued 1 TABLET PO TWICE A DAY January 25, 2022 12:00am January 29, 2022 8:43am anastrozole 1 mg oral tablet (20 sources) Aromatase Inhibitor Start: 09-26-2020 End: 01-13-2021 take 1 tablet by mouth once daily Anastrozole 1 MG tablet Discontinued 1 mg PO DAILY 90 90 1 October 18, 2020 12:41pm January 13, 2021 8:59am 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 [...] USE ONLY, ONCE, 1 dose, Starting on 04/07/25 at 1327, Until Sat04/07/25 at 1327 ceFAZolin [...] 500 mg PO .qid 20 5 0 October 31, 2022 11:00pm November 04, 2022 11:00pm November 05, 2022 11:05pm Mastitis Mastitis without abscess take one tab PO four times per day clonazePAM 0.5 mg oral tablet (20 sources) Benzodiazepine Start: 10-08-2024 End: 04-13-2025 take 1 tablet by mouth twice daily Clonazepam 0.5 mg tablet Discontinued 0.5 mg PO TWICE A DAY 60 5 October 09, 2024 12:15pm March 10, 2025 12:51pm clopidogrel 75 mg oral tablet (20 sources) [id number] Platelet Inhibitor Start: 04-29-2024 End: 10-08-2024 take 1 tablet by mouth once daily Clopidogrel (Plavix) 75 mg tablet Discontinued 75 mg PO daily April 28, 2024 11:00pm October 08, 2024 5:49pm Start: 04-24-2024 End: 06-09-2025 take 1 tablet by mouth once daily clopidogrel (PLAVIX) 75 mg tablet 1 tablet by ORAL/FEEDING TUBE route once daily. 90 tablet 3 06/09/2024 09/30/2024 Discontinued colchicine 0.6 mg oral tablet (20 sources) Start: 10-01-2024 End: 03-10-2025 take 1 tablet by mouth once daily Colchicine 0.6 mg tablet Discontinued 0.6 mg PO daily October 08, 2024 12:00am March 10, 2025 12:50pm cyclobenzaprine hydrochloride 10 mg oral tablet (20 sources) Muscle Relaxant Start: 07-18-2021 End: 10-18-2021 take 1 tablet by mouth three times daily Cyclobenzaprine 10 mg tablet Discontinued 10 mg PO THREE TIMES A DAY July 18, 2021 12:00am October 18, 2021 10:54am Start: 07-16-2021 take 1 tablet by jeanine every eight hours as needed cyclobenzaprine (FLEXERIL) 10 mg tablet Take 1 tablet by mouth every 8 hours as needed for muscle spasm (or pain). 14 tablet 07/16/2021 Suspended dexamethasone 6 mg oral tablet (20 sources) Corticosteroid Start: 04-08-2021 End: 05-05-2021 take 1 tablet by mouth once daily Dexamethasone (Decadron) 6 mg tablet Discontinued 6 mg PO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 partial mastectomy on April 28, 2020. She underwent patent foramen ovale (PFO) closure at the [facility] on September 10, 2024, after which postprocedural atrial fibrillation was recorded. Her atrial fibrillation is suspected to be secondary to pericarditis following the PFO closure. The patient reports no current symptoms of palpitations, chest pain, or dyspnea. She notes a history of intermittent chest pressure, which was previously attributed to gastrointestinal causes and has been partially responsive to adjustments in her antihypertensive regimen and the addition of proton pump inhibitor therapy. She denies any recent episodes of irregular heart rhythm or syncope. There are no reported symptoms suggestive of recurrent atrial fibrillation. Additional patient data: She has an implantable loop recorder (Kili, implanted November 25, 2024). The last device interrogation on May 24, 2025, showed no evidence of atrial fibrillation. She is currently being monitored with regular device downloads. Echocardiogram performed on September 25, 2024, demonstrated a left ventricular ejection fraction of 62% with normal valve function and no evidence of intracardiac shunting. Problem list includes paroxysmal atrial fibrillation (possibly secondary to pericarditis following PFO closure on February 08, 2025, with no atrial fibrillation detected by subsequent monitoring), hypertension, hyperlipidemia, PVCs, history of CVA, and right breast cancer status post partial mastectomy (April 28, 2020). Current medications include Eliquis and diltiazem. Her CHADS-VASc score is 5. No atrial fibrillation has been detected by loop recorder as of the most recent device check on May 24, 2025. Review of systems: CONSTITUTIONAL: Fatigue negative, Fever negative, Chills negative, Weight gain negative, Weight loss negative HEENT: Hearing loss negative, Sinus pressure negative, Visual changes negative RESPIRATORY: Cough negative, Shortness of breath negative, Wheezing negative CARDIOVASCULAR: Chest pain positive (pressure in chest, improved but still present), Pain while walking negative, Edema negative, Palpitations negative GASTROINTESTINAL: Abdominal pain negative, Blood in stool negative, Constipation negative, Diarrhea negative, Heartburn negative, Loss of appetite negative, Nausea negative, Vomiting negative NEUROLOGICAL: Dizziness negative, Extremity numbness negative, Extremity weakness negative, Headaches negative, Seizures negative, Tremors negative PSYCHIATRIC: Anxiety positive (mild, related to monitoring and reassurance), Depression negative INTEGUMENTARY: Breast discharge negative, Breast lump negative, Hives negative, Mole changes negative, Rash negative, Skin lesion negative MUSCULOSKELETAL: Back pain negative, Joint pain negative, Joint swelling negative, Neck pain negative HEMATOLOGIC: Easily bleeds negative, Easily bruises negative, Lymphedema negative, Issues with blood clots negative IMMUNOLOGIC: Food allergies negative, Seasonal allergies negative Physical exam: GENERAL APPEARANCE: The patient is alert, oriented, and converses fluently with appropriate responses. She is well- groomed and in no acute distress. No visible discomfort or abnormal movements are noted. LUNGS: Inspection reveals normal respiratory effort without use of accessory muscles. Auscultation demonstrates clear breath sounds bilaterally without rales, wheezes, or rhonchi. CARDIAC: Auscultation reveals a regular rate and rhythm without murmurs, rubs, or gallops. No peripheral edema is observed. NEUROLOGICAL: Speech is fluent and coherent. The patient is alert and fully oriented. No gross motor or coordination deficits are observed. PSYCHIATRIC: Mood and affect are appropriate. Behavior is cooperative and engaged throughout the encounter. Intake Vital Signs 06/03/25 07:58 06/15/25 09:32 06/24/25 10:28 06/25/25 09:18 Height 5 ft 1 in 5 ft 1 in 5 ft 1 in 5 ft 1 in Weight: 180 lb BMI 34.0 BP 155/91 H Blood Pressure Location Lt brachial Position Sitting Respiration 16 Pulse 73 Pulse Source Monitor Intake Visit Reasons: 3 M FU/ (more content not included)... Normal [facility] EGD Reporton 06-24-2025 EGD Report [facility] Medical Records Department [address] [place] [address] EGD Report MR#: [id number] Acct: [id number] Name: BO JACOB Rep #: [id number] : 1955 69 From: Vern Friend DO PCP: Loan Dias NP-C Status:REG [facility] Patient Name: Bo Mennell Procedure Date: 06/24/2025 11:32 AM Date of : 1955 Age: 69 Procedure: Upper GI endoscopy Indications: Functional Dyspepsia, Failure to respond to medical treatment, Unexplained chest pain, Chest pain (non cardiac) Providers: Vern Lott DO Referring MD: Loan Dias NP Medicines: Monitored Anesthesia Care Patient Profile: This is a 69 year old female. Refer to note in patient chart for documentation of history and physical. Patient has symptoms of acute epigastric abdominal pain, chronic chest pain and chronic nausea. Complications: No immediate complications. Procedure: Pre-Anesthesia Assessment: - Prior to the procedure, a History and Physical was performed, and patient medications and allergies were reviewed. The patient is competent. The risks and benefits of the procedure and the sedation options and risks were discussed with the patient. All questions were answered and informed consent was obtained. Patient identification and proposed procedure were verified by the physician in the pre-procedure area. Mental Status Examination: alert and oriented. Airway Examination: normal oropharyngeal airway and neck mobility. Respiratory Examination: clear to auscultation. CV Examination: normal. Prophylactic Antibiotics: The patient does not require prophylactic antibiotics. Prior Anticoagulants: The patient has taken no anticoagulant or antiplatelet agents except for NSAID medication. ASA Grade Assessment: II - A patient with mild systemic disease. After reviewing the risks and benefits, the patient was deemed in satisfactory condition to undergo the procedure. The anesthesia plan was to use monitored anesthesia care (MAC). Immediately prior to administration of medications, the patient was re-assessed for adequacy to receive sedatives. The heart rate, respiratory rate, oxygen saturations, blood pressure, adequacy of pulmonary ventilation, and response to care were monitored throughout the procedure. The physical status of the patient was re-assessed after the procedure. After obtaining informed consent, the endoscope was passed under direct vision. Throughout the procedure, the patient's blood pressure, pulse, and oxygen saturations were monitored continuously. The Endoscope was introduced through the mouth, and advanced to the third part of the duodenum. Small bowel enteroscopy was deemed necessary. The upper GI endoscopy was accomplished without difficulty. The patient tolerated the procedure well. Scope In: 11:48:16 AM Scope Out: 11:53:01 AM Total Procedure Duration Time 0 hours 4 minutes 45 seconds Findings: Abnormal motility was noted in the lower third of the esophagus. The cricopharyngeus was normal. There are extra peristaltic waves in the esophageal body. The distal esophagus/lower esophageal sphincter is spastic, but gives up passage to the endoscope. Secondary peristaltic waves are noted. Biopsies were taken with a cold forceps for histology. Patchy mildly erythematous mucosa without bleeding was found in the gastric body. Biopsies were taken with a cold forceps for histology. Biopsies were taken with a cold forceps for Helicobacter pylori testing. No gross lesions were noted in the entire examined duodenum. Biopsies were taken with a cold forceps for histology. Verification of patient identification for the specimen was done. Estimated blood loss was minimal. Impression: - Abnormal esophageal motility. Biopsied. - Erythematous mucosa in the gastric body. Biopsied. - No gross lesions in the entire examined duodenum. Biopsied. Recommendation: - Discharge patient to home. - Resume previous diet. - Continue present medications. - Await pathology results. - Esophageal manometry Procedure Code(s): --- Professional --- 28831, Small intestinal endoscopy, enteroscopy beyond second portion of duodenum, not including ileum; with biopsy, single or multiple CPT copyright 2021 [employer]. All rights reserved. The codes documented in this report are preliminary and upon ruby software developer review may be revised to meet current compliance requirements. Vern Lott DO 06/24/2025 12:09:27 PM This report has been signed electronically. Number of Addenda: 0 Note Initiated On: 06/24/2025 11:32 AM 06/24/25 1209 Date Vern Quintana Signature: Date (if indicated) CC: KEYA Dias; Vern Lott, (more content not included)... Normal [facility] MR/OP.Les 06-24-2025 MR/OP.[facility] Medical Records Department [address] [facility] [place] [address] Provation Physician Letter MR#: [id number] Acct: [id number] Name: BO JACOB Rep #: [id number] : 1955 69 From: Vern Lott DO PCP: KEYA Reaves Status:REG [facility] 06/24/2025 Loan Dias NP After Hours [address] [address] Re : Upper GI endoscopy procedure for Bo Jacob Dear Ms. Dias This procedure was performed on June. My impressions and recommendations are as follows: Impressions : - Abnormal esophageal motility. Biopsied. - Erythematous mucosa in the gastric body. Biopsied. - No gross lesions in the entire examined duodenum. Biopsied. Recommendations : - Discharge patient to home. - Resume previous diet. - Continue present medications. - Await pathology results. - Esophageal manometry My findings are described in the full procedure note, which is enclosed. If I can be of further assistance, please feel free to contact me at . Sincerely, Vern Lott DO 06/24/2025 12:09:27 PM This report has been signed electronically. 06/24/25 1209 Date Vern Lott DO Cosigner Signature: Date (if indicated) CC: COMMAND AND CONTROL SPECIALIST-C Loan Dias; Vern Lott DO Date Dictated: 06/24/25 1132 Date Transcribed: Memory Care Program Resident: AMINAH Signed [facility] Medical Records Department [address] [place] [address] Anesthesia Postop Eval I 06/24/25 1206 MR#: [id number] Acct: [id number] Name: BO JACOB Rep #: [id number] : 1955 69 From: Estevan Carrero PCP: RITU ReavesC Status:[facility] Y Race: C Location: [place] [address] Anesthesia: Postop Eval I Current Vital Signs Temperature: 98.9 F Pulse Rate: 85 Blood Pressure: 105/90 Respiratory Rate: 16 Pulse Ox: 98 Oxygen Delivery Method: Room Air Assessment Airway patent: Yes Spontaneous unlabored respirations: Yes Mental status: Awake and Calm nausea: No Vomiting: No Anesthesia Complication: No Fluid Hydration Crystalloid volume administer (ml): 400 Total IV fluid infused: 400 Progress Note Anesthesia document: Postop Eval 1 completed: Yes 06/24/25 1207 Date Estevan Vicenteignjocelin Signature: Date CC: Signed Normal [facility] MR/OWOFCODW8nd 06-24-2025 [facility] Medical Records Department [address] [place] [address] Anesthesia Postop Eval II 06/24/25 1514 MR#: [id number] Acct: [id number] Name: BO JACOB Rep #: [id number] : 1955 69 From: Abiel Addison MD PCP: KEYA Reaves Status:[facility] Y Race: C Location: [place] Anesthesia Postop Eval I Sum Postop Eval Completion status Anesthesia document: Postop Eval 1 completed: Yes Anesthesia Postop Eval I Summary Anesthesia Postop Eval I Summary: Anesthesia Postop Eval I: Assessment Summary Airway patent Yes 06/24/25 12:07 [email or web address] Spontaneous unlabored Yes 06/24/25 12:07 [email or web address] respirations Mental status Awake,Calm 06/24/25 12:07 [email or web address] nausea No 06/24/25 12:07 [email or web address] Vomiting No 06/24/25 12:07 [email or web address] Anesthesia Postop Eval I: Fluid Summary Crystalloid volume administer 400 06/24/25 12:07 [email or web address] (ml) Colloids volume administered ( ml) Blood Product volume administered (ml) Total IV fluid infused 400 06/24/25 12:07 [email or web address] Anesthesia Postop Eval I: Summary Notes Anesthesia Complication No 06/24/25 12:07 [email or web address] Anesthesia Complication Comment: Post-operative progress note Anesthesia: Postop Eval II Evaluation Mental status: Awake Pain Level: 0 nausea: No Vomiting: No Complications Anesthesia Complication: No 06/24/25 1514 Date Abiel Addison MD Cosigner Signature: Date CC: Signed Normal [facility] Chest WITH Contraston 2024 Chest WITH Contrast [facility] Imaging Services [address] [place] [id number] Chest WITH Contrast MR#: [id number] Acct: [id number] Name: BO JACOB Rep #: [id number] : 1955 F 69 From: Chip Zhang MD PCP: Loan Dias COMMAND AND CONTROL SPECIALIST-C Status: REG CLI Study: Chest WITH Contrast Date of Exam: 06/22/25 Exam# [id number] Ordering Dr: Verónica Lopez NP COMMAND AND CONTROL SPECIALIST -C PROCEDURE: CHEST WITH CONTRAST 06/22/2025 REASON FOR EXAM: MIDSTERNAL CHEST PAIN ONGOING;H/O BREAST CANCER TECHNIQUE: Procedure Code: CTCHW Modality: CT Procedure: CHEST WITH CONTRAST Coronal and Sagittal reconstruction series were provided. CONTRAST: Isovue 370 VOLUME: 67 mL One or more dose reduction techniques were used (e.g., Automated exposure control, adjustment of the mA and/or kV according to patient size, use of iterative reconstruction technique). RADIATION DOSE SUMMARY: CTDlvol: 30 mGy DLP: 421 mGycm COMPARISON: April 04, 2025 FINDINGS: Hardware: None Lymph nodes: None appear enlarged Heart and Vasculature: Loop recorder overlying the left breast. Mildly enlarged. No pericardial effusion. Interatrial baffle is in place. Coronary arteries are unremarkable. Mild atherosclerosis of the aorta. Timing and quality of the contrast bolus is diagnostic for pulmonary embolus. No acute or chronic pulmonary embolus seen. Lungs and Airways: No consolidation, mass or worrisome nodule. Pleura: No pleural effusion or pneumothorax Upper Abdomen: Benign cysts in the liver with the largest in segment 4 measuring 2.4 x 1.7 cm. Bones: Degenerative changes of the thoracic spine. Post biopsy changes right breast with surgical clips CT/Chest WITH Contrast IMPRESSION: 1. Mild cardiac enlargement. Loop recorder in place. Interatrial baffle in place. No evidence of acute or chronic pulmonary embolus. Unremarkable coronary arteries. 2. Lungs are clear. 3. Benign liver cysts. No follow-up required. 4. Posttreatment/post biopsy changes right breast. Reading Location: [id number] CC: KEYA Dias; KEYA Lopez Memory Care Program Resident: Signed [facility] MR/PATDeo 06-18-2025 MR/PAT.[facility] Medical Records Department [address] [place] [id number] PAT - Anesthesia 06/18/25 1444 MR#: [id number] Acct: [id number] Name: BO JACOB Rep #: [id number] : 1955 69 From: Blaine Clarke MD PCP: KEYA Reaves Status:PRE [facility] Y Race: C Location: EN Pre-Assessment Diagnosis/Proposed Procedure Planned Operative Procedure(s): EGD Anesthesia History Anesthesia History - scooper: Anesthesia History - scooper Hx Hospitalization Yes: 2-25 a-fib 06/18/25 13:59 Any Problems With Anesthesia No 06/18/25 13:59 Cholinesterase deficiency No 06/18/25 13:59 You/Your Family Experience No 06/18/25 13:59 fever (hyperthermia) with Relationship Recent Exposure to Contagious No 12/03/23 09:37 Disease Does patient have nerve No 06/18/25 13:59 stimulator Patient instructed to have device shut off --Does patient have Pacemaker or ICD? When Was Last Pacemaker Check QUESTION #4 FULL TEXT: You/Your Family Experience fever (hyperthermia) with Anesthesia Last Oral Intake Last Oral intake: Last Oral Intake NPO since Meds taken in AM with sips of water? Meds patient instructed to take am of surgery PONV PONV - scooper: PONV - scooper Female Yes 06/18/25 13:59 HX of Motion Sickness No 06/18/25 13:59 HX of N/V After Surgery No 06/18/25 13:59 Non-Smoker Yes 06/18/25 13:59 Duration of Surgery greater No 06/18/25 13:59 than 60 minutes Number of Risk Factors 2 06/18/25 13:59 PONV Score Moderate Risk 06/18/25 13:59 Height Weight Height Weight: Anesthesia: Height Weight Height 5 ft 1 in 06/09/25 14:19 Respiratory Assessment Respiratory Assessment - scooper: Respiratory Tract Infection Hx - scooper Hx Respiratory Tract Infection No 06/18/25 13:59 STOP Sleep Apnea STOP Sleep Apnea - scooper: STOP Sleep Apnea - scooper Hx Hypertension Yes 06/18/25 13:59 Hx Sleep Apnea No 06/18/25 13:59 CPAP BIPAP Do you snore loudly (louder No 06/18/25 13:59 than talking or can be heard Do you often feel tired/ No 06/18/25 13:59 fatigued/ sleepy during daytime? Has anyone observed you stop No 06/18/25 13:59 breathing during sleep? STOP Results Negative 06/18/25 13:59 QUESTION #5 FULL TEXT : Do you snore loudly (louder than talking or can be heard through closed doors)? 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 Specify any problems Hx of Preganancy in last 3 No 06/18/25 13:59 Months Nurse Filling Out Transfusion GISELE 06/18/25 13:59 Questions: Date: 06/18/25 06/18/25 13:59 Time: 14:02 06/18/25 13:59 Patient unable to answer at this time (ie. confused, unrespo /Reproduction History /Reproductive History - scooper: /Reproductive Hx- scooper Hx Now No 06/18/25 13:59 Gestational Age (in weeks): EDC: Hx Hx Para Hx Section SAB No 06/18/25 13:59 PFSH Medical History (Updated 06/18/25 @ 13:59 by Ashley Vargas) Screening for breast cancer Lumbar spine pain Pericardial effusion Atrial fibrillation with RVR Acute pericarditis Chest pain Paroxysmal A-fib Use of aromatase inhibitors Screening for osteoporosis Elevated alkaline phosphatase level History of transesophageal echocardiography (BLACK) PFO (patent foramen ovale) Wears glasses Marijuana use Dietary restriction Left breast lump ER+ (estrogen [...] Right leg pain Musculoskeletal pain Obesity Multiple alexey (more content not included)... Normal [facility] Radiation Oncology Visiton 1 Radiation Oncology Visit [facility] [address] [place] [address] OFFICE VISIT Date of Service: 06/15/25926 MR#: [id number] Acct: [id number] Name: BO JACOB Rep #: [id number] : 1955 From: João Kong DO Age/Sex: 69/F [place] [facility] [place] Status: Signed Intake Vital Signs 10/27/24 14:34 06/09/25 14:19 06/15/25 09:32 Height 5 ft 1 in 5 ft 1 in 5 ft 1 in Weight: 183 lb 5 oz BMI 34.6 BP 138/87 H Blood Pressure Location Lt brachial Position Sitting Respiration 16 Pulse 84 Pulse Source Monitor Temp 97.7 F L Temperature Source Temporal Artery Pulse Oximetry (%) 98 Oxygen Delivery Method room air Intake Is patient in pain?: Yes (chest) Pain scale (1-10): 4 Allergies adhesive tape Allergy (Intermediate, Verified 06/15/25 09:30) Hives oxycodone Allergy (Intermediate, Verified 06/15/25 09:30) Rash anastrozole Adverse Reaction (Severe, Verified 06/15/25 09:30) joint pain, anxiety, hot flashes Medications ???Medication ???Instructions ???Recorded ???Confirmed ???Type cholecalciferol (vitamin D3) 125 250 mcg PO DAILY 11/18/23 06/15/25 History mcg (5,000 unit) tablet (Vitamin D3) apixaban 5 mg tablet (Eliquis) 5 mg PO BID 10/08/24 06/15/25 Hist ory exemestane 25 mg tablet 25 mg PO DAILY #90 TABLETS 5 06/15/25 Rx ascorbate calcium (vitamin C) 500 500 mg PO QDAY 03/10/25 06/15/25 History mg tablet calcium acetate 667 mg tablet 667 mg PO ONCE 03/10/25 06/15/25 H istory clonazepam 0.5 mg tablet 0.5 mg PO BID PRN anxiety #60 tabs 04/13/25 06/15/25 Rx diltiazem HCl 360 mg 360 mg PO QAM this dose was 06/15/25 History capsule,extended release 24 hr resumed by PCP 04/13/25 (Cardizem CD) pantoprazole 40 mg tablet,delayed 40 mg PO QDAY #90 tabs 06/03/25 1 Rx release Have you fallen in the past year?: No Central Venous Access Central Venous Access: No PFSH PFSH Medical History Lumbar spine pain Pericardial effusion Atrial fibrillation with RVR Acute [...] Medications ???Medication ???Instructions ???Recorded ???Last Taken ???Type cholecalciferol (vitamin D3) 125 250 mcg PO DAILY 11/18/23 12/02/23 History mcg (5,000 unit) tablet (Vitamin D3) apixaban 5 mg tablet (Eliquis) 5 mg PO BID 10/08/24 Unknown Histo ry exemestane 25 mg tablet 25 mg PO DAILY #90 TABLETS 5 Unknown Rx ascorbate calcium (vitamin C) 500 500 mg PO QDAY 03/10/25 Unknown H istory mg tablet calcium acetate 667 mg tablet 667 mg PO ONCE 03/10/25 Unknown Hi story clonazepam 0.5 mg tablet 0.5 mg PO BID PRN anxiety #60 tabs 04/13/25 Unknown Rx diltiazem HCl 360 mg 360 mg PO QAM this dose was Unknown History capsule,extended release 24 hr resumed by PCP 04/13/25 (Mary BAKER) pantoprazole 40 mg tablet,delayed 40 mg PO QDAY #90 tabs 06/03/25 U nknown Rx release Allergy/AdvReac Type Severity Reaction Status Date / Time adhesive tape Allergy Intermediate Hives Verified 06/15/25 09:30 oxycodone Allergy Intermediate Rash Verified 06/15/25 09:30 anastrozole AdvReac Severe joint Verified 06/15/25 09:30 pain, anxiety, hot flashes Family History Mother CVA (cerebral vascular accident) Hypertension Grandmother CVA (cerebral vascular accident) Aunt CVA (cerebral vascular accident) Father COPD (chronic obstructive pulmonary disease) Brother Bone cancer Prostate cancer Surgical History History of surgical closure of patent foramen ovale (PFO) S/P lateral meniscus repair of (more content not included)... Normal [facility] Absolute lymphocyte countOrd ered By: [facility]25 Lymphocytes Auto (Unsp spec) [#/Vol] 1.46 10*3/uL 0.83-4.51 [facility] Absolute neutrophil countOrd ered By: [facility] Ava on 06-09-2025 Neutrophils (Bld) [#/Vol] 4.4 10*3/uL 2.0-7.7 [facility] Anion gap in Serum or Plasma Ordered By: [facility] on 06-09-2025 Anion gap [Moles/Vol] 12 mmol/L 5-15 [facility] Automated lymphocyte count a s percentage of total leukocytesOrdered By: [facility] on 06-09-2025 Lymphocytes/100 WBC Auto (Unsp spec) 22.1 % - [facility] BUN/creatinine ratioOrdered By: [facility] Ava on 06-09-2025 Urea nitrogen/Creatinine [Mass ratio] 13.2 mg/mg 10- [facility] Basophil percentageOrdered B y: [facility] on 06-09-2025 Basophils/100 WBC (Bld) 0.9 % 0-1 [facility] Bilirubin, totalOrdered By: [facility] on 06-09-2025 Bilirubin [Mass/Vol] 0.60 mg/dL 0.00-1.30 [facility] CBC W/Diff, Automatedon 05-20 Absolute Lymph 1.46 X10 3/uL Normal 0.83-4.51 [facility] Comment on above: Performed By: #### L 100.0100, L500.4050 ####[facility] [id number] [place], [address] Absolute Neut 4.4 X10 3/uL Normal 2.0-7.7 [facility] Comment on above: Performed By: #### L 100.0100, L500.4050 ####[facility] [address] [place], [address] Basophils/100 WBC (Bld) 0.9 % Normal 0-1 [facility] Comment on above: Performed By: #### L 100.0100, L500.4050 ####[facility] [address] [place], [address] Eosinophils/100 WBC (Bld) 3.6 % Normal 0-5 [facility] Comment on above: Performed By: #### L 100.0100, L500.4050 ####[facility] [address] [place], [address] Erythrocyte distribution width (RBC) [Ratio] 12.4 % Normal 11.6-14.6 [facility] Comment on above: Performed By: #### L 100.0100, L500.4050 ####[facility] [address] [place], [address] Hematocrit (Bld) [Volume fraction] 48.2 % High 37-47 [facility] Comment on above: Performed By: #### L 100.0100, L500.4050 ####[facility] [address] [place], [address] Hemoglobin (Bld) [Mass/Vol] 16.2 g/dL High 12.0-15.0 [facility] Comment on above: Performed By: #### L 100.0100, L500.4050 ####[facility] [address] [place], [address] IG% 0.500 Normal 0.0-0.9 [facility] Comment on above: Result Comment: IG% - Immature Granulocytes (promyelocytes, myelocytes and metamyelocytes) > 1% indicates that a LEFT SHIFT is Present. Performed By: #### L 100.0100, L500.4050 ####[facility] [address] [place], [address] Lymphocytes/100 WBC (Bld) 22.1 % Normal 19-41 [facility] Comment on above: Performed By: #### L 100.0100, L500.4050 ####[facility] [address] [place], [address] MCH (RBC) [Entitic mass] 32.0 pg Normal 27.0-32.0 [facility] Comment on above: Performed By: #### L 100.0100, L500.4050 ####[facility] [address] [place], [address] MCHC (RBC) [Mass/Vol] 33.6 g/dL Normal 32-36 [facility] Comment on above: Performed By: #### L 100.0100, L500.4050 ####[facility] [address] [place], [address] MCV (RBC) [Entitic vol] 95.3 fL Normal 81-99 [facility] Comment on above: Performed By: #### L 100.0100, L500.4050 ####[facility] [address] [place], [address] Monocytes/100 WBC (Bld) 7.1 % Normal 0-10 [facility] Comment on above: Performed By: #### L 100.0100, L500.4050 ####[facility] [address] [place], [address] Neutrophils/100 WBC (Bld) 65.8 % Normal 47-70 [facility] Comment on above: Performed By: #### L 100.0100, L500.4050 ####[facility] [address] [place], [address] Nucleated RBC (Bld) [#/Vol] 0 10*3/uL Normal 0-5 [facility] Comment on above: Performed By: #### L 100.0100, L500.4050 ####[facility] [address] [place], [address] Platelet mean volume (Bld) [Entitic vol] 9.0 fL Normal 6.2-12.0 [facility] Comment on above: Performed By: #### L 100.0100, L500.4050 ####[facility] [address] [place], [address] Platelets (Bld) [#/Vol] 293 10*3/uL Normal 150-450 [facility] Comment on above: Performed By: #### L 100.0100, L500.4050 ####[facility] [address] [place], [address] RBC (Bld) [#/Vol] 5.06 10*6/uL Normal 4.2-5.4 [facility] Comment on above: Performed By: #### L 100.0100, L500.4050 ####[facility] [address] [place], [address] RDW SD 43.3 fl Normal 35.1-43.9 [facility] Comment on above: Performed By: #### L 100.0100, L500.4050 ####[facility] [address] [place], [address] WBC (Bld) [#/Vol] 6.6 10*3/uL Normal 4.4-11.0 [facility] Comment on above: Performed By: #### L 100.0100, L500.4050 ####[facility] [address] [place], [address] Carbon dioxide, total [Moles /volume] in Central venous bloodOrdered By: Beenajavier Escalante on 06-09-2025 CO2 [Moles/Vol] 25.3 mmol/L 21.0-32.0 [facility] Chloride assayOrdered By: Lety miryam Ava on 06-09-2025 Chloride [Moles/Vol] 103 mmol/L 98-108 [facility] Comprehensive Metabolic Prof ilon 06-09-2025 Albumin [Mass/Vol] 4.6 g/dL Normal 3.4-4.8 [facility] Comment on above: Performed By: #### L 100.0100, L500.4050 ####[facility] [address] [place], [address] Albumin/Globulin [Mass ratio] 2.0 {ratio} Normal 0.9-2.4 [facility] Comment on above: Performed By: #### L 100.0100, L500.4050 ####[facility] [address] [place], [address] ALK PHOS 126 U/L High 35-104 [facility] Comment on above: Performed By: #### L 100.0100, L500.4050 ####[facility] [address] [place], [address] ALT [Catalytic activity/Vol] 22 U/L Normal <=34 [facility] Comment on above: Performed By: #### L 100.0100, L500.4050 ####[facility] [address] [place], [address] AST [Catalytic activity/Vol] 20 U/L Normal <=31 [facility] Comment on above: Performed By: #### L 100.0100, L500.4050 ####[facility] [address] [place], [address] Bilirubin [Mass/Vol] 0.60 mg/dL Normal 0.00-1.30 [facility] Comment on above: Performed By: #### L 100.0100, L500.4050 ####[facility] [address] [place], [address] BUN/CRE 13.2 RATIO Normal 10-20 [facility] Comment on above: Performed By: #### L 100.0100, L500.4050 ####[facility] [address] [place], [address] Calcium [Mass/Vol] 9.6 mg/dL Normal 7.6-11.0 [facility] Comment on above: Performed By: #### L 100.0100, L500.4050 ####[facility] [address] [place], [address] Chloride [Moles/Vol] 103 mmol/L Normal 98-108 [facility] Comment on above: Performed By: #### L 100.0100, L500.4050 ####[facility] [address] [place], [address] CO2 [Moles/Vol] 25.3 mmol/L Normal 21.0-32.0 [facility] Comment on above: Performed By: #### L 100.0100, L500.4050 ####[facility] [address] [place], [address] Creatinine [Mass/Vol] 1.13 mg/dL Normal 0.70-1.20 [facility] Comment on above: Performed By: #### L 100.0100, L500.4050 ####[facility] [address] [place], [address] ECRCL 46.61 ml/min Low 50-250 [facility] Comment on above: Performed By: #### L 100.0100, L500.4050 ####[facility] [address] [place], [address] GAP 12 Normal 5-15 [facility] Comment on above: Performed By: #### L 100.0100, L500.4050 ####[facility] [address] [place], [address] GFR/1.73 sq M.predicted among non-blacks MDRD (S/P/Bld) [Vol rate/Area] 52 mL/min/{1.73_m2} Low >60 [facility] Comment on above: Result Comment: mL/m in/1.73m2 CKD-EPI Creatinine Equation (2020) Performed By: #### L 100.0100, L500.4050 ####[facility] [address] [place], [address] Globulin (S) [Mass/Vol] 2.3 g/dL Normal 2.2-4.2 [facility] Comment on above: Performed By: #### L 100.0100, L500.4050 ####[facility] [address] [place], [address] Glucose [Mass/Vol] 100 mg/dL High 70-99 [facility] Comment on above: Performed By: #### L 100.0100, L500.4050 ####[facility] [address] [place], [address] Potassium [Moles/Vol] 4.0 mmol/L Normal 3.3-5.1 [facility] Comment on above: Performed By: #### L 100.0100, L500.4050 ####[facility] [address] [place], [address] Sodium [Moles/Vol] 140 mmol/L Normal 133-145 [facility] Comment on above: Performed By: #### L 100.0100, L500.4050 ####[facility] [address] [place], [address] T PROT 6.9 g/dL Normal 5.9-8.4 [facility] Comment on above: Performed By: #### L 100.0100, L500.4050 ####[facility] [address] [place], [place], [address] Urea nitrogen [Mass/Vol] 15 mg/dL Normal 4-19 [facility] Comment on above: Performed By: #### L 100.0100, L500.4050 ####[facility] [address] [place], [place], [address] Eosinophil percentageOrdered By: Antonia Escalante on 06-09-2025 Eosinophils/100 WBC (Bld) 3.6 % 0-5 [facility] Erythrocyte distribution wid th ratioOrdered By: Antonia Escalante on 06-09-2025 Erythrocyte distribution width (RBC) [Ratio] 12.4 % 11.6-14.6 [facility] Erythrocyte distribution wid th standard deviationOrdered By: Antonia Escalante on 06-09-2025 Erythrocyte distribution width (RBC) [Ratio] 43.3 fl 35.1-43.9 [facility] Glomerular filtration rate ( GFR) estimation/1.73 sq m using serum, plasma, or whole bOrdered By: Antonia Escalante on 06-09-2025 GFR/1.73 sq M.predicted among non-blacks MDRD (S/P/Bld) [Vol rate/Area] 52 mL/min/{1.73_m2} Low >60 [facility] Comment on above: mL/min/1.73m2 CKD-EP I Creatinine Equation (2020) Hematocrit Auto (Bld) [Volum e fraction]Ordered By: Antonia Escalante on 06-09-2025 Hematocrit (Bld) [Volume fraction] 48.2 % High 37-47 [facility] Hemoglobin measurementOrdere d By: Antonia Escalante on 06-09-2025 Hemoglobin (Bld) [Mass/Vol] 16.2 g/dL High 12.0-15.0 [facility] Immature granulocytes/100 WB C Auto (Bld)Ordered By: Antonia Escalante on 06-09-2025 Immature granulocytes/100 WBC (Bld) 0.500 % 0.0-0.9 [facility] Comment on above: IG% - Immature Granu locytes (promyelocytes, myelocytes and metamyelocytes) > 1% indicates that a LEFT SHIFT is Present. L/S Spine Min 4 Viewson 05-20 L/S Spine Min 4 Views [facility] Imaging Services [address] [place], [place] [address] L/S Spine Min 4 Views MR#: [id number] Acct: [id number] Name: BO JACOB Rep #: [id number] : 1955 F 69 From: Phan Garcia MD PCP: KEYA Reaves Status: REG RCR Study: L/S Spine Min 4 Views Date of Exam: 06/09/25 Exam# [id number] Ordering Dr: Verónica Lopez NP, NP PROCEDURE: L/S SPINE MIN 4 VIEWS 06/09/2025 REASON FOR EXAM: BACK PAIN AFTER TWISTING INJURY TECHNIQUE: Procedure Code: RADSPLS Modality: DX Procedure: L/S SPINE MIN 4 VIEWS COMPARISON: None FINDINGS: There is anatomic alignment of the lumbar spine without fracture, pars defect, or spondylolisthesis. Mild disc space narrowing throughout the lumbar spine with sclerotic endplate changes and small anterior spurs. No suspicious calcifications RAD/L/S Spine Min 4 Views IMPRESSION: Mild, age consistent degenerative changes, no acute findings Reading Location: [id number] CC: KEYA Dias; KEYA Lopez [facility] Resident: Signed Normal [facility] Laboratory - Chemistry and C hemistry - challengeOrdered By: Antonia Escalante on 06-09-2025 AST [Catalytic activity/Vol] 20 U/L <32 [facility] MCV (mean corpuscular volume ) determinationOrdered By: Antonia Escalante on 06-09-2025 MCV (RBC) [Entitic vol] 95.3 fL 81-99 [facility] Mean corpuscular hemoglobin (MCH) determinationOrdered By: Antonia Escalante on 06-09-2025 MCH (RBC) [Entitic mass] 32.0 pg 27.0-32.0 [facility] Mean corpuscular hemoglobin concentration (MCHC) determinationOrdered By: Beenajavier Escalante on 06-09-2025 MCHC (RBC) [Mass/Vol] 33.6 g/dL 32-36 [facility] Mean platelet volume determi nationOrdered By: [facility] Ava on 06-09-2025 Platelet mean volume (Bld) [Entitic vol] 9.0 fL 6.2-12.0 [facility] Monocyte percentageOrdered B y: [facility] Ava on 06-09-2025 Monocytes/100 WBC (Bld) 7.1 % 0-10 [facility] Neutrophil percentageOrdered By: [facility] on 06-09-2025 Neutrophils/100 WBC (Bld) 65.8 % 47-70 [facility] Nucleated red blood cell per centageOrdered By: [facility] Ava on 06-09-2025 Nucleated RBC/100 WBC (Bld) [Ratio] 0 % 0-5 [facility] Oncology Visit Reporton 05-20 Oncology Visit Report [facility] [place] [facility] [address] [place] [address] OFFICE VISIT Date of Service: 06/09/25 1407 MR#: [id number] Acct: [id number] Name: BO JACOB Rep #: [id number] : 1955 From: Verónica Lopez NP [employer]IST -C Age/Sex: 69/F Location: [facility] [place] Status: Signed HPI Subjective Date of Service 06/09/25 Chief Complaint Breast cancer on treatment History of Present Illness 69-year-old with stage IA (T1c, N0, M0) G3, ER positive, WI positive, 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 After skipping 2018 screening mammographies she felt a painless lump in the right breast and a diagnostic mammogram followed by a biopsy confirmed malignancy. April 28, 2020 she underwent a partial mastectomy with sentinel lymph node biopsy. Her work-up and surgery were done at [facility], she was then seen by medical oncology at [facility] with the recommendation of an adjuvant course of chemo immune therapy (ACTH/TCH) . [facility] (TH) again recommended. She eventually made the decision to receive her treatment at [facility] network close to home. CT chest June [...] field. Patient drove all the way to [place] and then back just prior to [facility]2020. Experienced an acute right lower back pain and right sided sciatica. Although she had similar but less severe episodes in the past, this by far was the worst she ever experienced. She was seen in [facility] emergency room and plain x-rays [...] ASSESSMENT CATEGORY: BIRADS Category 2: Benign. Treatment summary: Septemb (more content not included)... Normal [facility] Platelet countOrdered By: Lety Escalante on 06-09-2025 Platelets (Bld) [#/Vol] 293 10*3/uL 150-450 [facility] Potassium measurement (mass/ volume)Ordered By: Antonia Escalante on 06-09-2025 Potassium (Unsp spec) [Mass/Vol] 4.0 mmol/L 3.3-5.1 [facility] RBC Auto (Bld) [#/Vol]Ordere d By: Antonia Escalante on 06-09-2025 RBC (Bld) [#/Vol] 5.06 10*6/uL 4.2-5.4 [facility] Serum creatinine measurement (mass/volume)Ordered By: Antonia Escalante on 06-09-2025 Creatinine [Mass/Vol] 1.13 mg/dL 0.70-1.20 [facility] Serum globulin measurementOr dered By: Antonia Escalante on 06-09-2025 Globulin (S) [Mass/Vol] 2.3 g/dL 2.2-4.2 [facility] Serum glucose measurement (m ass/volume)Ordered By: Antonia Escalante on 06-09-2025 Glucose [Mass/Vol] 100 mg/dL High 70-99 [facility] Serum or plasma alanine torres otransferase (ALT) measurementOrdered By: Antonia Escalante on 06-09-2025 ALT [Catalytic activity/Vol] 22 U/L <35 [facility] Serum or plasma albumin giovany urement (mass/volume)Ordered By: Antonia Escalante on 06-09-2025 Albumin [Mass/Vol] 4.6 g/dL 3.4-4.8 [facility] Serum or plasma albumin/glob ulin mass ratioOrdered By: Antonia Escalante on 06-09-2025 Albumin/Globulin [Mass ratio] 2.0 {ratio} 0.9-2.4 [facility] Serum or plasma alkaline semaj sphatase measurementOrdered By: Antonia Escalante on 06-09-2025 ALP [Catalytic activity/Vol] 126 U/L High 35-104 [facility] Serum or plasma calcium giovany urement (mass/volume)Ordered By: Antonia Escalante on 06-09-2025 Calcium [Mass/Vol] 9.6 mg/dL 7.6-11.0 [facility] Serum or plasma urea nitroge n measurement (mass/volume)Ordered By: Antonia Escalante on 06-09-2025 Urea nitrogen [Mass/Vol] 15 mg/dL 4-19 [facility] Sodium levelOrdered By: Beena Escalante on 06-09-2025 Sodium [Moles/Vol] 140 mmol/L 133-145 [facility] Total proteinOrdered By: Jose Escalante on 06-09-2025 Protein [Mass/Vol] 6.9 g/dL 5.9-8.4 [facility] White blood cell (WBC) count Ordered By: Antonia Escalante on 06-09-2025 WBC (Bld) [#/Vol] 6.6 10*3/uL 4.4-11.0 [facility] Gastroenterology Visit Repor ton 06-03-2025 Gastroenterology Visit Report [facility] [address] [place] [address] OFFICE VISIT Date of Service: 06/03/25 MR#: [id number] Acct: [id number] Name: BO JACOB Rep #: [id number] : 1955 Provider: KEYA caro Age/Sex: 69/F Location[facility] Status: Signed Intake Vital Signs 04/13/25 15:12 06/03/25 07:58 Height 5 ft 1 in 5 ft 1 in Weight: 183 lb 181 lb 6 oz BMI 34.5 34.2 BP 120/60 142/91 H Blood Pressure Location Rt brachial Position Sitting Respiration 18 16 Pulse 106 H 78 Pulse Source Doppler Temp 97.5 F L 97.8 F Temp Source Temporal Pulse Oximetry (%) 98 98 Oxygen Delivery Method room air room air Intake Visit Reasons: CHEST PRESSURE -HEART CHECKED OUT OKAY Chief Complaint: chest pain Evs Manager Required: No Accompanied by: Self Is patient in pain?: No Allergies adhesive tape Allergy (Intermediate, Verified 06/03/25 07:57) Hives oxycodone Allergy (Intermediate, Verified 06/03/25 07:57) Rash anastrozole Adverse Reaction (Severe, Verified 06/03/25 07:57) joint pain, anxiety, hot flashes Medications ???Medication ???Instructions ???Recorded ???Confirmed ???Type cholecalciferol (vitamin D3) 125 250 mcg PO DAILY 11/18/23 06/03/25 History mcg (5,000 unit) tablet (Vitamin D3) hydroxyzine HCl 10 mg tablet 10 mg PO TID-QID PRN anxiety #90 0 04/29/24 06/03/25 Rx tabs apixaban 5 mg tablet (Eliquis) 5 mg PO BID 10/08/24 06/03/25 Hist ory exemestane 25 mg tablet 25 mg PO DAILY #90 TABLETS 5 06/03/25 Rx ascorbate calcium (vitamin C) 500 500 mg PO QDAY 03/10/25 06/03/25 History mg tablet calcium acetate 667 mg tablet 667 mg PO ONCE 03/10/25 06/03/25 H istory clonazepam 0.5 mg tablet 0.5 mg PO BID PRN anxiety #60 tabs 08/26/25 10/16/25 Rx diltiazem HCl 360 mg 360 mg PO QAM this dose was 06/03/25 History capsule,extended release 24 hr resumed by PCP 04/13/25 (Cardizem CD) pantoprazole 40 mg tablet,delayed 40 mg PO QDAY #90 tabs 06/03/25 1 Rx release Have you fallen in the past year?: No PFSH Medical History (Updated 06/03/25 @ 08:12 by Radha Tan [employer] CONTROL SPECIALIST-C) Pericardial effusion Atrial fibrillation with RVR Acute [...] 1-2 times per week duration: 15-30 minutes/day frankie/worship: Non-Jainism/Independ ent seatbelt use: always do you feel safe at home: Yes HPI HPI Chief Complaint: chest pain Details: OV 04/12/2025 The patient is a 69-year-old female with a history of atrial fibrillation secondary to PFO closure and pericarditis, now prese (more content not included)... Normal [facility] CNOVon 05-12-2025 CNOV Normal [facility] Echo Completeon 05-11-2025 Echo Complete [facility] [address] [place] [address] Echo Complete 05/11/25 0836 MR#: [id number] Acct: [id number] Name: BO JACOB Rep #: [id number] : 1955 69 From: Nico Hook MD Attending Dr: KIRILL Childs Status: REG [facility] Ordering Dr: Ashli Rosado Date: 04/20 11/10 Location: [facility] Sex: F C Admitted: Reason For Study Reason For Study: Chest Pain Procedure This was a 2D Doppler, Color Flow transthoracic echocardiogram. Exam performed in department. Left Ventricle Normal LV size. Left ventricular systolic function is normal. The left ventricular ejection fraction is 65 %. Stage 1 diastolic dysfunction. No regional wall motion abnormalities noted. Right Ventricle Normal RV size. Normal systolic function. Atria Normal left atrium. Normal right atrium. Mitral Valve Normal mitral valve. Mild (1+) mitral valve insufficiency. Tricuspid Valve Normal tricuspid valve. Mild tricuspid valve insufficiency. Pulmonary artery systolic pressure is 21 mmHg. Aortic Valve Normal aortic valve. Trisinus/trileaflet aortic valve. Pulmonic Valve Normal pulmonic valve. Great Vessels Normal aortic root. The pulmonary artery is normal size. Inferior vena cava collapse with respiration. Pericardium/Pleural No pericardial effusion. MMode/2D Measurements Calculations LVIDd: 4.9 cm IVSd: 1.2 cm Ao root diam: 3.3 cm LVIDs: 3.0 cm LVPWd: 0.94 cm RVDd: 2.9 cm FS: 38.9 % LAV(MOD-bp): 32.8 ml LVAd ap4: 23.3 cm2 SV(MOD-sp4): 35.8 ml LAV(MOD-bp) Indexed: 18.2 ml/m2 LVLd ap4: 7.5 cm SI(MOD-sp4): 19.9 ml/m2 LAV(MOD-sp2): 30.0 ml EDV(MOD-sp4): 58.7 ml LAV(MOD-sp4): 33.3 ml EDV(sp4-el): 61.5 ml LVAs ap4: 12.9 cm2 LVLs ap4: 6.7 cm ESV(MOD-sp4): 22.9 ml ESV(sp4-el): 21.1 ml EF(MOD-sp4): 61.0 % EF(sp4-el): 65.7 % SV(sp4-el): 40.5 ml LA A4 area: 13.4 cm2 LA dimension(2D): 3.6 cm RA A4 area: 12.2 cm2 TAPSE: 2.0 cm Time Measurements MV dec time: 0.19 sec Doppler Measurements Calculations MV E max sunita: 52.8 cm/sec Lat Peak E' Sunita: 7.4 cm/sec Med Peak E' Sunita: 6.0 cm/sec MV A max sunita: 73.1 cm/sec E/E' lat: 7.1 E/E' med: 8.8 MV E/A: 0.72 MV V2 max: 82.2 cm/sec MV P1/2t max sunita: 53.5 cm/sec Ao V2 max: 120.7 cm/sec MV max P.7 mmHg MV P1/2t: 61.2 msec Ao max P.8 mmHg MV V2 mean: 44.5 cm/sec Ao V2 mean: 86.9 cm/sec MV mean P.94 mmHg MV dec slope: 256.2 cm/sec2 Ao mean P.4 mmHg MV V2 VTI: 16.6 cm MVA(P1/2t): 3.6 cm2 Ao V2 VTI: 27.5 cm AV (velocity ratio): 0.70 LV V1 max: 79.6 cm/sec PA V2 max: 84.6 cm/sec TR max sunita: 210.6 cm/sec LV V1 max P.5 mmHg PA V2 mean: 58.2 cm/sec TR max P.0 mmHg LV V1 mean P.4 mmHg LV V1 mean: 57.1 cm/sec LV V1 VTI: 19.2 cm ECHO/Echo Complete Interpretation Summary Normal LV size. Left ventricular systolic function is normal. The left ventricular ejection fraction is 65 %. Stage 1 diastolic dysfunction. Ordering Physician: Ashli Rosado Referring Physician: Ashli Rosado Performed By: Amrit Sibley RCS 05/11/25 1457 Date Nico Hook MD CC: KEYA Dias; KIRILL Childs Date Dictated: 05/11/2536 Date Transcribed: 05/11/251456 Memory Care Program Resident: Signed Normal [facility] Stress Reporton 05-11-2025 Stress Report [facility] [address] [place] [address] MR#: [id number] Acct: [id number] Name: BO JACOB Rep #: [id number] : 1955 69 From: Nico Hook MD Primary Care: KEYA Reaves Status: REG CLI Referring Dr: Ashli Rosado PA Sex: F C Stress Test Report Exercise myocardial perfusion stress test. 69-year-old lady with a history of chest pain and pericardial effusion. Stress protocol: Resting EKG demonstrates normal sinus rhythm with a rate of 65 bpm resting blood pressure is 142/88 mmHg. The patient exercised according to the regular Erik protocol for a total duration of 3 minutes and 45 seconds attaining a maximum heart rate of 150 bpm which was 100% of maximum predicted heart rate; the maximum workload was 6.4 metabolic equivalents. At rest there were no ST or T wave changes noted to suggest ischemia and at peak exercise upsloping ST changes only were noted which did not meet the criteria for ischemia. No clinical angina was noted the test was terminated due to the target heart rate being achieved/fatigue. The peak blood pressure was 178/90 mmHg. Rate-pressure product was 23,000. Myocardial perfusion protocol. 11.9 mCi of technetium 99m sestamibi was injected at rest. The patient exercised according to regular Erik protocol for total duration of 3 minutes and 45 seconds and at peak exercise 35.6 mCi of technetium 99m sestamibi was injected stress images were obtained stress and rest images were reconstructed in comparing the short axis vertical long and horizontal long axis. Gated images were also obtained. Perfusion SPECT analysis: Review of the stress images demonstrate normal uptake of tracer noted in all areas of the myocardium. The resting images similarly demonstrate normal uptake of tracer noted in all areas of the myocardium. No areas of reversibility are noted to suggest ischemia no previous infarct was noted. Gated SPECT analysis: The gated ejection fraction is 72%. Conclusion: Normal exercise myocardial perfusion stress test at a moderate workload. 05/11/252022 Date Nico Hook MD CC: KEYA Dias; KIRILL Childs Date Dictated: 05/11/252020 Date Transcribed: 05/11/252020 Memory Care Program Resident: [place] Signed Normal [facility] Gastroenterology Visit Repor ton 04-08-2025 Gastroenterology Visit Report [facility] Gastroenterology [address] [place] [address] OFFICE VISIT Date of Service: 04/08/25 MR#: [id number] Acct: [id number] Name: MADELINE JACOBSE VALENZUELA Rep #: [id number] : 1955 Provider: KEYA caro Age/Sex: 69/F [place] [facility] [place] Status: Signed Intake Vital Signs 04/04/25 01:05 04/08/25 09:29 Height 5 ft 1 in 5 ft 1 in Weight: 183 lb BMI 34.5 BP 129/83 H Blood Pressure Location Lt brachial Position Sitting Pulse 85 Pulse Oximetry (%) 98 Intake Visit Reasons: Hospital FU Chief Complaint: HFU- chest pain Evs Manager Required: No Accompanied by: Self Is patient [...] 1-2 times per week duration: 15-30 minutes/day frankie/worship: Non-Jainism/Independ ent seatbelt use: always do you feel safe at home: Yes HPI HPI Chief Complaint: HFU- chest pain Details: BO JACOB, is a 69 F who presents to the office today for - pressure in chest, radiates up into throat and through to her back - seen in ER this past 04/03/2025 - reports MO was rule-out in ED - h/o CVA 04/19/2024 - PFO repair August 2024 then September 2024 she developed A. Fib and the same chest pressure, pericarditis started on cardizem, ami (more content not included)... Normal [facility] Additional Injections: R casandra ntar fasciaon 04-07-2025 Jarred Suh DPSusanna 04/07/2025 2:52 PM Additional Injections: R [...] these instructions. Informed Consent Consent Obtained: Verbal [place] Protocol SIGN IN Patient/Surrogate Stated/Verified: Patient name TIME OUT Correct side/site marked and visible. Medications required for procedure verified. SIGN OUT The post-procedure POC has been communicated to the patient or surrogate. [facility] CNOVon 04-07-2025 CNOV Normal [facility] Absolute lymphocyte countOrd ered By: Rob Guallpa on 04-04-2025 Lymphocytes Auto (Unsp spec) [#/Vol] 2.15 10*3/uL 0.83-4.51 [facility] Absolute neutrophil countOrd ered By: Rob Guallpa on 04-04-2025 Neutrophils (Bld) [#/Vol] 4.2 10*3/uL 2.0-7.7 [facility] Anion gap in Serum or Plasma Ordered By: Rob Guallpa on 04-04-2025 Anion gap [Moles/Vol] 14 mmol/L 5-15 [facility] Automated lymphocyte count a s percentage of total leukocytesOrdered By: Rob Guallpa on 04-04-2025 Lymphocytes/100 WBC Auto (Unsp spec) 29.4 % 19-41 [facility] BUN/creatinine ratioOrdered By: Rob Guallpa on 04-04-2025 Urea nitrogen/Creatinine [Mass ratio] 20.6 mg/mg High - [facility] Basic Metabolic Profile (BMP )on 04-04-2025 BUN/CRE 20.6 RATIO High - [facility] Comment on above: Performed By: #### L 500.2500, L100.0100, L501.4021 ####[facility] [address] [place], [address] Calcium [Mass/Vol] 9.6 mg/dL Normal 7.6-11.0 [facility] Comment on above: Performed By: #### L 500.2500, L100.0100, L501.4021 ####[facility] [address] [place], [address] Chloride [Moles/Vol] 105 mmol/L Normal 98-108 [facility] Comment on above: Performed By: #### L 500.2500, L100.0100, L501.4021 ####[facility] [address] [place], [address] CO2 [Moles/Vol] 24.3 mmol/L Normal 21.0-32.0 [facility] Comment on above: Performed By: #### L 500.2500, L100.0100, L501.4021 ####[facility] [address] [place], [address] Creatinine [Mass/Vol] 0.88 mg/dL Normal 0.70-1.20 [facility] Comment on above: Performed By: #### L 500.2500, L100.0100, L501.4021 ####[facility] [address] [place], [address] ECRCL 59.54 ml/min Normal 50-250 [facility] Comment on above: Performed By: #### L 500.2500, L100.0100, L501.4021 ####[facility] [address] [place], [address] GAP 14 Normal 5-15 [facility] Comment on above: Performed By: #### L 500.2500, L100.0100, L501.4021 ####[facility] [address] [place], [address] GFR/1.73 sq M.predicted among non-blacks MDRD (S/P/Bld) [Vol rate/Area] 71 mL/min/{1.73_m2} Normal >60 [facility] Comment on above: Result Comment: mL/m in/1.73m2 CKD-EPI Creatinine Equation (2020) Performed By: #### L 500.2500, L100.0100, L501.4021 ####[facility] [address] [place], [address] Glucose [Mass/Vol] 103 mg/dL High 70-99 [facility] Comment on above: Performed By: #### L 500.2500, L100.0100, L501.4021 ####[facility] [address] [place], [address] Potassium [Moles/Vol] 3.7 mmol/L Normal 3.3-5.1 [facility] Comment on above: Performed By: #### L 500.2500, L100.0100, L501.4021 ####[facility] [address] [place], [address] Sodium [Moles/Vol] 143 mmol/L Normal 133-145 [facility] Comment on above: Performed By: #### L 500.2500, L100.0100, L501.4021 ####[facility] [address] [place], [address] Urea nitrogen [Mass/Vol] 18 mg/dL Normal 4-19 [facility] Comment on above: Performed By: #### L 500.2500, L100.0100, L501.4021 ####[facility] [address] [place], [address] Basophil percentageOrdered B y: Rob Guallpa on 04-04-2025 Basophils/100 WBC (Bld) 1.1 % High 0-1 [facility] CBC W/Diff, Automatedon 03-19 Absolute Lymph 2.15 X10 3/uL Normal 0.83-4.51 [facility] Comment on above: Performed By: #### L 500.2500, L100.0100, L501.4021 ####[facility] [address] [place], [address] Absolute Neut 4.2 X10 3/uL Normal 2.0-7.7 [facility] Comment on above: Performed By: #### L 500.2500, L100.0100, L501.4021 ####[facility] [address] [place], [address] Basophils/100 WBC (Bld) 1.1 % High 0-1 [facility] Comment on above: Performed By: #### L 500.2500, L100.0100, L501.4021 ####[facility] [address] [place], [address] Eosinophils/100 WBC (Bld) 4.5 % Normal 0-5 [facility] Comment on above: Performed By: #### L 500.2500, L100.0100, L501.4021 ####[facility] [address] [place], [address] Erythrocyte distribution width (RBC) [Ratio] 12.4 % Normal 11.6-14.6 [facility] Comment on above: Performed By: #### L 500.2500, L100.0100, L501.4021 ####[facility] [address] [place], [address] Hematocrit (Bld) [Volume fraction] 42.9 % Normal 37-47 [facility] Comment on above: Performed By: #### L 500.2500, L100.0100, L501.4021 ####[facility] [address] [place], [address] Hemoglobin (Bld) [Mass/Vol] 14.8 g/dL Normal 12.0-15.0 [facility] Comment on above: Performed By: #### L 500.2500, L100.0100, L501.4021 ####[facility] [address] [place], [address] IG% 0.500 Normal 0.0-0.9 [facility] Comment on above: Result Comment: IG% - Immature Granulocytes (promyelocytes, myelocytes and metamyelocytes) > 1% indicates that a LEFT SHIFT is Present. Performed By: #### L 500.2500, L100.0100, L501.4021 ####[facility] [address] [place], [address] Lymphocytes/100 WBC (Bld) 29.4 % Normal 19-41 [facility] Comment on above: Performed By: #### L 500.2500, L100.0100, L501.4021 ####[facility] [address] [place], [address] MCH (RBC) [Entitic mass] 32.2 pg High 27.0-32.0 [facility] Comment on above: Performed By: #### L 500.2500, L100.0100, L501.4021 ####[facility] [address] [place], [address] MCHC (RBC) [Mass/Vol] 34.5 g/dL Normal 32-36 [facility] Comment on above: Performed By: #### L 500.2500, L100.0100, L501.4021 ####[facility] [address] [place], [address] MCV (RBC) [Entitic vol] 93.3 fL Normal 81-99 [facility] Comment on above: Performed By: #### L 500.2500, L100.0100, L501.4021 ####[facility] [address] [place], [address] Monocytes/100 WBC (Bld) 6.6 % Normal 0-10 [facility] Comment on above: Performed By: #### L 500.2500, L100.0100, L501.4021 ####[facility] [address] [place], [address] Neutrophils/100 WBC (Bld) 57.9 % Normal 47-70 [facility] Comment on above: Performed By: #### L 500.2500, L100.0100, L501.4021 ####[facility] [address] [place], [address] Nucleated RBC (Bld) [#/Vol] 0 10*3/uL Normal 0-5 [facility] Comment on above: Performed By: #### L 500.2500, L100.0100, L501.4021 ####[facility] [address] [place], [address] Platelet mean volume (Bld) [Entitic vol] 9.4 fL Normal 6.2-12.0 [facility] Comment on above: Performed By: #### L 500.2500, L100.0100, L501.4021 ####[facility] [address] [place], [address] Platelets (Bld) [#/Vol] 255 10*3/uL Normal 150-450 [facility] Comment on above: Performed By: #### L 500.2500, L100.0100, L501.4021 ####[facility] [address] [place], [address] RBC (Bld) [#/Vol] 4.60 10*6/uL Normal 4.2-5.4 [facility] Comment on above: Performed By: #### L 500.2500, L100.0100, L501.4021 ####[facility] [address] [place], [address] RDW SD 42.6 fl Normal 35.1-43.9 [facility] Comment on above: Performed By: #### L 500.2500, L100.0100, L501.4021 ####[facility] [address] [place], [address] WBC (Bld) [#/Vol] 7.3 10*3/uL Normal 4.4-11.0 [facility] Comment on above: Performed By: #### L 500.2500, L100.0100, L501.4021 ####[facility] [address] [place], [address] Carbon dioxide, total [Moles /volume] in Central venous bloodOrdered By: Rob Guallpa on 04-04-2025 CO2 [Moles/Vol] 24.3 mmol/L 21.0-32.0 [facility] Chest 1 View (Portable)on Chest 1 View (Portable) [facility] Imaging Services [address] [place] [address] Chest 1 View (Portable) MR#: [id number] Acct: [id number] Name: BO JACOB Rep #: [id number] : 1955 F 69 From: Consuelo connell MD PCP: KEYA Reaves Status: DEP ER Study: Chest 1 View (Portable) Date of Exam: 04/04/25 Exam# [id number] Ordering Dr: Rob Guallpa MD PROCEDURE: CHEST [...] No evidence for acute abnormality. Reading Location: [place] [address] CC: KEYA Dias; Dr. Rob Guallpa MD Memory Care Program Resident: Signed Normal [facility] Chloride assayOrdered By: Laxmi Guallpa on 04-04-2025 Chloride [Moles/Vol] 105 mmol/L 98-108 [facility] Emergency Department Summary on 04-04-2025 Emergency Department Summary [facility] Medical Records Department [address] [place] [address] Emergency Department Summary 04/04/25 MR#: [id number] Acct: [id number] Name: BO JACOB Rep #: [id number] : 1955 69 From: Rob Guallpa MD [...] and follows with cardiology here at the [place] [facility]. She states her cuff slitter thinks that the pressure she has been having has been chronic pericarditis. [facility] Medical History Pericardial effusion Atrial fibrillation [...] PO DAILY 07/18/21 11/28/23 H istory release (Croky Low Dose Aspirin) cholecalciferol (vitamin D3) 125 [...] disease) Bro (more content not included)... Normal [facility] Eosinophil percentageOrdered By: Rob Guallpa on 04-04-2025 Eosinophils/100 WBC (Bld) 4.5 % 0-5 [facility] Erythrocyte distribution wid th ratioOrdered By: Rob Guallpa on 04-04-2025 Erythrocyte distribution width (RBC) [Ratio] 12.4 % 11.6-14.6 [facility] Erythrocyte distribution wid th standard deviationOrdered By: Rob Guallpa on 04-04-2025 Erythrocyte distribution width (RBC) [Ratio] 42.6 fl 35.1-43.9 [facility] Glomerular filtration rate ( GFR) estimation/1.73 sq m using serum, plasma, or whole bOrdered By: Rob Guallpa on 04-04-2025 GFR/1.73 sq M.predicted among non-blacks MDRD (S/P/Bld) [Vol rate/Area] 71 mL/min/{1.73_m2} >60 [facility] Comment on above: mL/min/1.73m2 CKD-EP I Creatinine Equation (2020) Hematocrit Auto (Bld) [Volum e fraction]Ordered By: Rob Guallpa on 04-04-2025 Hematocrit (Bld) [Volume fraction] 42.9 % 37-47 [facility] Hemoglobin measurementOrdere d By: Rob Guallpa on 04-04-2025 Hemoglobin (Bld) [Mass/Vol] 14.8 g/dL 12.0-15.0 [facility] Immature granulocytes/100 WB C Auto (Bld)Ordered By: Rob Guallpa on 04-04-2025 Immature granulocytes/100 WBC (Bld) 0.500 % 0.0-0.9 [facility] Comment on above: IG% - Immature Granu locytes (promyelocytes, myelocytes and metamyelocytes) > 1% indicates that a LEFT SHIFT is Present. L501.4021on 04-04-2025 Trop T High Sen 8 ng/L Normal <=14 [facility] Comment on above: Performed By: #### L 500.2500, L100.0100, L501.4021 ####[facility] [address] [place], [address] MCV (mean corpuscular volume ) determinationOrdered By: Rob Guallpa on 04-04-2025 MCV (RBC) [Entitic vol] 93.3 fL 81-99 [facility] Mean corpuscular hemoglobin (MCH) determinationOrdered By: Rob Guallpa on 04-04-2025 MCH (RBC) [Entitic mass] 32.2 pg High 27.0-32.0 [facility] Mean corpuscular hemoglobin concentration (MCHC) determinationOrdered By: Rob Guallpa on 04-04-2025 MCHC (RBC) [Mass/Vol] 34.5 g/dL 32-36 [facility] Mean platelet volume determi nationOrdered By: Rob Guallpa on 04-04-2025 Platelet mean volume (Bld) [Entitic vol] 9.4 fL 6.2-12.0 [facility] Monocyte percentageOrdered B y: Rob Guallpa on 04-04-2025 Monocytes/100 WBC (Bld) 6.6 % 0-10 [facility] Neutrophil percentageOrdered By: Rob Guallpa on 04-04-2025 Neutrophils/100 WBC (Bld) 57.9 % 47-70 [facility] Nucleated red blood cell per centageOrdered By: Rob Guallpa on 04-04-2025 Nucleated RBC/100 WBC (Bld) [Ratio] 0 % 0-5 [facility] Platelet countOrdered By: Laxmi Guallpa on 04-04-2025 Platelets (Bld) [#/Vol] 255 10*3/uL 150-450 [facility] Potassium measurement (mass/ volume)Ordered By: Rob Guallpa on 04-04-2025 Potassium (Unsp spec) [Mass/Vol] 3.7 mmol/L 3.3-5.1 [facility] RBC Auto (Bld) [#/Vol]Ordere d By: Rob Guallpa on 04-04-2025 RBC (Bld) [#/Vol] 4.60 10*6/uL 4.2-5.4 [facility] Serum creatinine measurement (mass/volume)Ordered By: Rob Guallpa on 04-04-2025 Creatinine [Mass/Vol] 0.88 mg/dL 0.70-1.20 [facility] Serum glucose measurement (m ass/volume)Ordered By: Rob Guallpa on 04-04-2025 Glucose [Mass/Vol] 103 mg/dL High 70-99 [facility] Serum or plasma calcium giovany urement (mass/volume)Ordered By: Rob Guallpa on 04-04-2025 Calcium [Mass/Vol] 9.6 mg/dL 7.6-11.0 [facility] Serum or plasma urea nitroge n measurement (mass/volume)Ordered By: Rob Guallpa on 04-04-2025 Urea nitrogen [Mass/Vol] 18 mg/dL 4-19 [facility] Sodium levelOrdered By: Michael Guallpa on 04-04-2025 Sodium [Moles/Vol] 143 mmol/L 133-145 [facility] Troponin T HS 2 HRon 025 Trop T High Sen 8 ng/L Normal <=14 [facility] Comment on above: Performed By: #### L 499.0042 #### [facility] Laboratory [address] [place], [address] Troponin T HS 4 HRon 025 Trop T High Sen Normal <=14 [facility] Comment on above: Result Comment: Canc elled via OM: Order cancelled - Patient discharged Performed By: #### L 499.0043 ####[facility] [address] [place], [address] Troponin T.cardiac [Mass/vol ume] in Serum or Plasma by High sensitivity methodOrdered By: Rob Guallpa on 04-04-2025 Troponin T.cardiac High sensitivity method [Mass/Vol] 8 ng/L <14 [facility] Troponin T.cardiac High sensitivity method [Mass/Vol] 8 ng/L <14 [facility] White blood cell (WBC) count Ordered By: Rob Guallpa on 04-04-2025 WBC (Bld) [#/Vol] 7.3 10*3/uL 4.4-11.0 [facility] Cardiology Visit Reporton Cardiology Visit Report [facility] [address] [place], [place] [address] OFFICE VISIT Date of Service: 03/12/25 MR#: [id number] Acct: [id number] Name: BO JACOB Rep #: [id number] : 1955 Provider: Dr. Hossein gould MD Age/Sex: 69/F Location[place] [facility] [place] Status: Signed HPI HPI History of Present [...] patent foramen ovale (PFO) closure at the [facility] on September 10, 2024. Her atrial [...] of recurr (more content not included)... Normal [facility] CNOVon 03-10-2025 CNOV Normal [facility] Orthopedic Visit Reporton Orthopedic Visit Report [facility] [address] [place] [address] OFFICE VISIT Date of Service: 03/10/25 MR#: [id number] Acct: [id number] Name: BO JACOB Rep #: [id number] : 1955 Provider: Dr. Raymond jaimes DO Age/Sex: 69/F Location[place] [facility] [place] Status: Signed Intake Vital Signs 12/14/24 15:38 [...] 1-2 times per week duration: 15-30 minutes/day frankie/worship: Non-Jainism/Independ ent seatbelt use: always do you feel [...] sleeping. S (more content not included)... Normal [facility] CNPNon 03-08-2025 CNPN Normal [facility] ALLIED HEALTHon 03-06-2025 ALLIED HEALTH Normal [facility] ED NOTEon 03-06-2025 ED NOTE Normal [facility] ED NOTE Normal [facility] ED NOTE HNO ID: [id number] Author: RIO CARRANZA, BERNABE Service: ? Author Type: Registered Nurse Type: ED Notes Filed: 03/06/2025 19:03 Note Text: Report to aruna hernandez rn Normal [facility] ED NOTE HNO ID: [id number] Author: RIO CARRANZA, BERNABE Service: ? Author Type: Registered Nurse Type: ED Notes Filed: 03/06/2025 18:55 Note Text: Dr merida at bedside for exam Normal [facility] ED NOTE HNO ID: [id number] Author: RIO CARRANZA, BERNABE Service: ? Author Type: Registered Nurse Type: ED Notes Filed: 03/06/2025 18:53 Note Text: Pt having pain in her r heel for a few weeks, pt denies any known injury. Pain is worse with weightbearing Normal [facility] ED PROV NOTEon 03-06-2025 ED PROV NOTE Normal [facility] XR CALCANEUS 2V AXIAL/LAT RT on 03-06-2025 XR CALCANEUS 2V AXIAL/LAT RT Normal [facility] XR FOOT 3V AP/LAT/OBL RTon 0 03-06-2025 XR FOOT 3V AP/LAT/OBL RT Normal [facility] CNPNon 12-18-2024 CNPN Normal [facility] Absolute lymphocyte countOrd ered By: Verónica Lopez on 12-14-2024 Lymphocytes Auto (Unsp spec) [#/Vol] 1.73 10*3/uL 0.83-4.51 [facility] Absolute neutrophil countOrd ered By: Verónica Lopez on 12-14-2024 Neutrophils (Bld) [#/Vol] 4.6 10*3/uL 2.0-7.7 [facility] Anion gap in Serum or Plasma Ordered By: Verónica Lopez on 12-14-2024 Anion gap [Moles/Vol] 11 mmol/L 5-15 [facility] Automated lymphocyte count a s percentage of total leukocytesOrdered By: Verónica Lopez on 12-14-2024 Lymphocytes/100 WBC Auto (Unsp spec) 24.7 % 19- [facility] BUN/creatinine ratioOrdered By: Verónica Lopez on 12-14-2024 Urea nitrogen/Creatinine [Mass ratio] 17.8 mg/mg 10- [facility] Basophil percentageOrdered B y: Verónica Lpoez on 12-14-2024 Basophils/100 WBC (Bld) 1.1 % High 0-1 [facility] Bilirubin, totalOrdered By: Verónica Lopez on 12-14-2024 Bilirubin [Mass/Vol] 0.23 mg/dL 0.00-1.30 [facility] CBC W/Diff, Automatedon 11-18 Absolute Lymph 1.73 X10 3/uL Normal 0.83-4.51 [facility] Comment on above: Performed By: #### L 100.0100, L500.4050 #### [facility] [address] [place], [address] Absolute Neut 4.6 X10 3/uL Normal 2.0-7.7 [facility] Comment on above: Performed By: #### L 100.0100, L500.4050 #### [facility] [address] [place], [address] Basophils/100 WBC (Bld) 1.1 % High 0-1 [facility] Comment on above: Performed By: #### L 100.0100, L500.4050 #### [facility] [address] [facility] [place], [address] Eosinophils/100 WBC (Bld) 2.4 % Normal 0-5 [facility] Comment on above: Performed By: #### L 100.0100, L500.4050 #### [facility] [address] [place], [address] Erythrocyte distribution width (RBC) [Ratio] 13.1 % Normal 11.6-14.6 [facility] Comment on above: Performed By: #### L 100.0100, L500.4050 #### [facility] [address] [place], [address] Hematocrit (Bld) [Volume fraction] 43.6 % Normal 37-47 [facility] Comment on above: Performed By: #### L 100.0100, L500.4050 #### [facility] [address] [place], [address] Hemoglobin (Bld) [Mass/Vol] 14.7 g/dL Normal 12.0-15.0 [facility] Comment on above: Performed By: #### L 100.0100, L500.4050 #### [facility] [address] [place], [address] IG% 0.300 Normal 0.0-0.9 [facility] Comment on above: Result Comment: IG% - Immature Granulocytes (promyelocytes, myelocytes and metamyelocytes) > 1% indicates that a LEFT SHIFT is Present. Performed By: #### L 100.0100, L500.4050 #### [facility] [address] [place], [address] Lymphocytes/100 WBC (Bld) 24.7 % Normal 19-41 [facility] Comment on above: Performed By: #### L 100.0100, L500.4050 #### [facility] [address] [place], [address] MCH (RBC) [Entitic mass] 31.8 pg Normal 27.0-32.0 [facility] Comment on above: Performed By: #### L 100.0100, L500.4050 #### [facility] [address] [place], [address] MCHC (RBC) [Mass/Vol] 33.7 g/dL Normal 32-36 [facility] Comment on above: Performed By: #### L 100.0100, L500.4050 #### [facility] [address] [place], [address] MCV (RBC) [Entitic vol] 94.4 fL Normal 81-99 [facility] Comment on above: Performed By: #### L 100.0100, L500.4050 #### [facility] [address] [place], [address] Monocytes/100 WBC (Bld) 5.8 % Normal 0-10 [facility] Comment on above: Performed By: #### L 100.0100, L500.4050 #### [facility] [address] [place], [address] Neutrophils/100 WBC (Bld) 65.7 % Normal 47-70 [facility] Comment on above: Performed By: #### L 100.0100, L500.4050 #### [facility] [address] [place], [address] Nucleated RBC (Bld) [#/Vol] 0 10*3/uL Normal 0-5 [facility] Comment on above: Performed By: #### L 100.0100, L500.4050 #### [facility] [address] [place], [address] Platelet mean volume (Bld) [Entitic vol] 9.6 fL Normal 6.2-12.0 [facility] Comment on above: Performed By: #### L 100.0100, L500.4050 #### [facility] [address] [place], [address] Platelets (Bld) [#/Vol] 278 10*3/uL Normal 150-450 [facility] Comment on above: Performed By: #### L 100.0100, L500.4050 #### [facility] [address] [place], [address] RBC (Bld) [#/Vol] 4.62 10*6/uL Normal 4.2-5.4 [facility] Comment on above: Performed By: #### L 100.0100, L500.4050 #### [facility] [address] [place], [address] RDW SD 44.8 fl High 35.1-43.9 [facility] Comment on above: Performed By: #### L 100.0100, L500.4050 #### [facility] [address] [place], [address] WBC (Bld) [#/Vol] 7.0 10*3/uL Normal 4.4-11.0 [facility] Comment on above: Performed By: #### L 100.0100, L500.4050 #### [facility] [address] [place], [address] Carbon dioxide, total [Moles /volume] in Central venous bloodOrdered By: Verónica Lopez on 12-14-2024 CO2 [Moles/Vol] 25.0 mmol/L 21.0-32.0 [facility] Chloride assayOrdered By: Alexx Lopez on 12-14-2024 Chloride [Moles/Vol] 106 mmol/L 98-108 [facility] Comprehensive Metabolic Prof ilon 12-14-2024 Albumin [Mass/Vol] 4.5 g/dL Normal 3.4-4.8 [facility] Comment on above: Performed By: #### L 100.0100, L500.4050 #### [facility] [address] [place], [address] Albumin/Globulin [Mass ratio] 2.2 {ratio} Normal 0.9-2.4 [facility] Comment on above: Performed By: #### L 100.0100, L500.4050 #### [facility] [address] [place], [address] ALK PHOS 115 U/L High 35-104 [facility] Comment on above: Performed By: #### L 100.0100, L500.4050 #### [facility] [address] [place], [address] ALT [Catalytic activity/Vol] 15 U/L Normal <=34 [facility] Comment on above: Performed By: #### L 100.0100, L500.4050 #### [facility] [address] [place], [address] AST [Catalytic activity/Vol] 19 U/L Normal <=31 [facility] Comment on above: Performed By: #### L 100.0100, L500.4050 #### [facility] [address] [place], [address] Bilirubin [Mass/Vol] 0.23 mg/dL Normal 0.00-1.30 [facility] Comment on above: Performed By: #### L 100.0100, L500.4050 #### [facility] [address] [place], [address] BUN/CRE 17.8 RATIO Normal 10-20 [facility] Comment on above: Performed By: #### L 100.0100, L500.4050 #### [facility] [address] [place], [address] Calcium [Mass/Vol] 9.8 mg/dL Normal 7.6-11.0 [facility] Comment on above: Performed By: #### L 100.0100, L500.4050 #### [facility] [address] [place], [address] Chloride [Moles/Vol] 106 mmol/L Normal 98-108 [facility] Comment on above: Performed By: #### L 100.0100, L500.4050 #### [facility] [address] [place], [address] CO2 [Moles/Vol] 25.0 mmol/L Normal 21.0-32.0 [facility] Comment on above: Performed By: #### L 100.0100, L500.4050 #### [facility] [address] [place], [address] Creatinine [Mass/Vol] 1.06 mg/dL Normal 0.70-1.20 [facility] Comment on above: Performed By: #### L 100.0100, L500.4050 #### [facility] [address] [place], [address] ECRCL 49.00 ml/min Low 50-250 [facility] Comment on above: Performed By: #### L 100.0100, L500.4050 #### [facility] [address] [place], [address] GAP 11 Normal 5-15 [facility] Comment on above: Performed By: #### L 100.0100, L500.4050 #### [facility] [address] [place], [address] GFR/1.73 sq M.predicted among non-blacks MDRD (S/P/Bld) [Vol rate/Area] 57 mL/min/{1.73_m2} Low >60 [facility] Comment on above: Result Comment: mL/m in/1.73m2 CKD-EPI Creatinine Equation (2020) Performed By: #### L 100.0100, L500.4050 #### [facility] [address] [place], [address] Globulin (S) [Mass/Vol] 2.1 g/dL Low 2.2-4.2 [facility] Comment on above: Performed By: #### L 100.0100, L500.4050 #### [facility] [address] [place], [address] Glucose [Mass/Vol] 99 mg/dL Normal 70-99 [facility] Comment on above: Performed By: #### L 100.0100, L500.4050 #### [facility] [address] [place], [address] Potassium [Moles/Vol] 3.9 mmol/L Normal 3.3-5.1 [facility] Comment on above: Performed By: #### L 100.0100, L500.4050 #### [facility] [address] [place], [address] Sodium [Moles/Vol] 142 mmol/L Normal 133-145 [facility] Comment on above: Performed By: #### L 100.0100, L500.4050 #### [facility] [address] [place], [address] T PROT 6.6 g/dL Normal 5.9-8.4 [facility] Comment on above: Performed By: #### L 100.0100, L500.4050 #### [facility] [address] [place], [address] Urea nitrogen [Mass/Vol] 19 mg/dL Normal 4-19 [facility] Comment on above: Performed By: #### L 100.0100, L500.4050 #### [facility] [address] [place], [address] Eosinophil percentageOrdered By: Verónica Lopez on 12-14-2024 Eosinophils/100 WBC (Bld) 2.4 % 0-5 [facility] Erythrocyte distribution wid th ratioOrdered By: Verónica Lopez on 12-14-2024 Erythrocyte distribution width (RBC) [Ratio] 13.1 % 11.6-14.6 [facility] Erythrocyte distribution wid th standard deviationOrdered By: Verónica Lopez on 12-14-2024 Erythrocyte distribution width (RBC) [Ratio] 44.8 fl High 35.1-43.9 [facility] Glomerular filtration rate ( GFR) estimation/1.73 sq m using serum, plasma, or whole bOrdered By: Verónica Lopez on 12-14-2024 GFR/1.73 sq M.predicted among non-blacks MDRD (S/P/Bld) [Vol rate/Area] 57 mL/min/{1.73_m2} Low >60 [facility] Comment on above: mL/min/1.73m2 CKD-EP I Creatinine Equation (2020) Hematocrit Auto (Bld) [Volum e fraction]Ordered By: Verónica Lopez on 12-14-2024 Hematocrit (Bld) [Volume fraction] 43.6 % 37-47 [facility] Hemoglobin measurementOrdere d By: Verónica Lopez on 12-14-2024 Hemoglobin (Bld) [Mass/Vol] 14.7 g/dL 12.0-15.0 [facility] Immature granulocytes/100 WB C Auto (Bld)Ordered By: Verónica Lopez 12-14-2024 Immature granulocytes/100 WBC (Bld) 0.300 % 0.0-0.9 [facility] Comment on above: IG% - Immature Granu locytes (promyelocytes, myelocytes and metamyelocytes) > 1% indicates that a LEFT SHIFT is Present. Laboratory - Chemistry and C hemistry - challengeOrdered By: Verónica Lopez on 12-14-2024 AST [Catalytic activity/Vol] 19 U/L <32 [facility] MCV (mean corpuscular volume ) determinationOrdered By: Verónica Lopez 12-14-2024 MCV (RBC) [Entitic vol] 94.4 fL 81-99 [facility] Mean corpuscular hemoglobin (MCH) determinationOrdered By: Verónica Lopez 12-14-2024 MCH (RBC) [Entitic mass] 31.8 pg 27.0-32.0 [facility] Mean corpuscular hemoglobin concentration (MCHC) determinationOrdered By: Verónica Lopez 12-14-2024 MCHC (RBC) [Mass/Vol] 33.7 g/dL 32-36 [facility] Mean platelet volume determi nationOrdered By: Verónica Lopez on 12-14-2024 Platelet mean volume (Bld) [Entitic vol] 9.6 fL 6.2-12.0 [facility] Monocyte percentageOrdered B y: Verónica Lopez on 12-14-2024 Monocytes/100 WBC (Bld) 5.8 % 0-10 [facility] Neutrophil percentageOrdered By: Verónica Lopez on 12-14-2024 Neutrophils/100 WBC (Bld) 65.7 % 47-70 [facility] Nucleated red blood cell per centageOrdered By: Verónica Lopez on 12-14-2024 Nucleated RBC/100 WBC (Bld) [Ratio] 0 % 0-5 [facility] Oncology Visit Reporton 11-18 Oncology Visit Report [facility] [place] [facility] [address] [address] OFFICE VISIT Date of Service: 12/14/24 1533 MR#: [id number] Acct: [id number] Name: BO JACOB Rep #: [id number] : 1955 From: Verónica Lopez NP COMMAND AND CONTROL SPECIALIST -C Age/Sex: 69/F [place] [facility] [place] Status: Signed HPI Subjective Date of Service 12/14/24 Chief Complaint h/o breast cancer on endocrine therapy History of Present Illness 69-year-old with stage IA (T1c, N0, M0) G3, ER positive, WI positive, 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 After skipping 2018 screening mammographies she felt a painless lump in the right breast and a diagnostic mammogram followed by a biopsy confirmed malignancy. April 28, 2020 she underwent a partial mastectomy with sentinel lymph node biopsy. Her work-up and surgery were done at [facility], she was then seen by medical oncology at [facility] with the recommendation of an adjuvant course of chemo immune therapy (ACTH/TCH) . She then went for a second opinion at [facility] were adjuvant chemoradiotherapy (TH) again recommended. She eventually made the decision to receive her treatment at [facility] close to home. CT chest June [...] field. Patient drove all the way to [place] and then back just prior to [facility]2020. Experienced an acute right lower back pain and right sided sciatica. Although she had similar but less severe episodes in the past, this by far was the worst she ever experienced. She was seen in [facility] emergency room and plain x-rays [...] Treatment summar (more content not included)... Normal [facility] Platelet countOrdered By: Alexx Lopez on 12-14-2024 Platelets (Bld) [#/Vol] 278 10*3/uL 150-450 [facility] Potassium measurement (mass/ volume)Ordered By: Verónica Lopez on 12-14-2024 Potassium (Unsp spec) [Mass/Vol] 3.9 mmol/L 3.3-5.1 [facility] RBC Auto (Bld) [#/Vol]Ordere d By: Verónica Lopez on 12-14-2024 RBC (Bld) [#/Vol] 4.62 10*6/uL 4.2-5.4 [facility] Serum creatinine measurement (mass/volume)Ordered By: Verónica Lopez on 12-14-2024 Creatinine [Mass/Vol] 1.06 mg/dL 0.70-1.20 [facility] Serum globulin measurementOr dered By: Verónica Lopez on 12-14-2024 Globulin (S) [Mass/Vol] 2.1 g/dL Low 2.2-4.2 [facility] Serum glucose measurement (m ass/volume)Ordered By: Verónica Lopez on 12-14-2024 Glucose [Mass/Vol] 99 mg/dL 70-99 [facility] Serum or plasma alanine torres otransferase (ALT) measurementOrdered By: Verónica Lopez on 12-14-2024 ALT [Catalytic activity/Vol] 15 U/L <35 [facility] Serum or plasma albumin giovany urement (mass/volume)Ordered By: Veórnica Lopez on 12-14-2024 Albumin [Mass/Vol] 4.5 g/dL 3.4-4.8 [facility] Serum or plasma albumin/glob ulin mass ratioOrdered By: Verónica Lopez on 12-14-2024 Albumin/Globulin [Mass ratio] 2.2 {ratio} 0.9-2.4 [facility] Serum or plasma alkaline semaj sphatase measurementOrdered By: Verónica Lopez on 12-14-2024 ALP [Catalytic activity/Vol] 115 U/L High 35-104 [facility] Serum or plasma calcium giovany urement (mass/volume)Ordered By: Verónica Lopez on 12-14-2024 Calcium [Mass/Vol] 9.8 mg/dL 7.6-11.0 [facility] Serum or plasma urea nitroge n measurement (mass/volume)Ordered By: Verónica Lopez on 12-14-2024 Urea nitrogen [Mass/Vol] 19 mg/dL 4-19 [facility] Sodium levelOrdered By: Verónica Lopez on 12-14-2024 Sodium [Moles/Vol] 142 mmol/L 133-145 [facility] Total proteinOrdered By: Erica Lopez on 12-14-2024 Protein [Mass/Vol] 6.6 g/dL 5.9-8.4 [facility] White blood cell (WBC) count Ordered By: Verónica Lopez on 12-14-2024 WBC (Bld) [#/Vol] 7.0 10*3/uL 4.4-11.0 [facility] CNNURSEon 12-09-2024 CNNURSE [facility] CNPNon 12-09-2024 CNPN [facility] CNPNon 11-06-2024 CNPN [facility] CNOVon 11-04-2024 CNOV [facility] Bone density reportOrdered B y: Jessie Melo on 11-03-2024 Study report Skeletal system DXA [facility] Imaging Services [address] [place] [address] Dexa Bone Density Study MR#: [id number] Acct: [id number] Name: BO JACOB Rep #: [id number] : 1955 F 69 From: Christina Melo MD PCP: KEYA Reaves Status: REG CLI Study:Dexa Bone Density Study Date of Exam: 11/03/24 Exam# [id number] Ordering Dr: Verónica Flores NP PROCEDURE: DEXA [...] is a trademark of the [employer]'s [place] for Metabolic Bone Disease, World Health Organization (WHO) Collaborating [place]. 1-The 10-year probability of fracture may be lower than reported if the patient has received treatment. 2-Major Osteoporotic Fracture: Clinical Spine, Forearm, Hip or Shoulder. The T-scores are also available for review on the [facility] PACS or by accessing the [facility] electronic medical record. BD/Dexa Bone Density Study IMPRESSION: Improving BMD of the lumbar spine and bilateral hips. Reading Location: [facility] CC: KEYA Dias; KEYA Lopez ~ Memory Care Program Resident: Signed [facility] Breast imaging reportOrdered By: Sherine Gómez on 11-03-2024 Study report [facility] Imaging Services [address] [place] [address] SCRN MAMM (CAD)W/DORIS BILAT MR#: [id number] Acct: [id number] Name: BO JACOB Rep #: [id number] : 1955 F 69 From: Myesha Gómez MD PCP: KEYA Reaves Status: REG CLI Study:SCRN MAMM (CAD)W/DORIS BILAT Date of Exa m: 11/03/24 Exam# [id number] Ordering Dr: Verónica Flores NP PROCEDURE: SCRN MAMM (CAD)W/DORIS BILAT REASON FOR EXAM: F, Age 69 [...] architectural distortion, or suspicious calcifications. BI/SCRN MAMM (CAD)W/DORIS BILAT IMPRESSION: There is no mammographic evidence of malignancy. BI-RADS 2: BENIGN. RECOMMEND ANNUAL MAMMOGRAPHIC SCREENING. Follow-up code: Routine Follow-up The patient will be notified of the results by letter. Reading Location: [facility] CC: KEYA Dias; KEYA Lopez ~ Memory Care Program Resident: Signed [facility] Dexa Bone Density Studyon Dexa Bone Density Study [facility] Imaging Services [address] [place] [address] Dexa Bone Density Study MR#: [id number] Acct: [id number] Name: BO JACOB Rep #: [id number] : 1955 F 69 From: Jessie Melo MD PCP: KEYA Reaves Status: REG CLI Study: Dexa Bone Density Study Date of Exam: 11/03/24 Exam# [id number] Ordering Dr: Verónica Lopez NP, NP PROCEDURE: [...] is a trademark of the [employer] [place] for Metabolic Bone Disease, World Health Organization (WHO) Collaborating [place]. 1-The 10-year probability of fracture may be lower than reported if the patient has received treatment. 2-Major Osteoporotic Fracture: Clinical Spine, Forearm, Hip or Shoulder. The T-scores are also available for review on the [facility] PACS or by accessing the [facility] electronic medical record. BD/Dexa Bone Density Study IMPRESSION: Improving BMD of the lumbar spine and bilateral hips. Reading Location: [facility] CC: KEYA Dias; KEYA Lopez Memory Care Program Resident: Signed Normal [facility] SCRN MAMM (CAD)W/DORIS BILATo n 11-03-2024 SCRN MAMM (CAD)W/DORIS BILAT [facility] Imaging Services [address] [place] [address] SCRN MAMM (CAD)W/DORIS BILAT MR#: [id number] Acct: [id number] Name: BO JACOB Rep #: [id number] : 1955 F 69 From: Sherine Gómez MD PCP: KEYA Reaves Status: REG CLI Study: SCRN MAMM (CAD)W/DORIS BILAT Date of Exam: 10/17 04/12 Exam# [id number] Ordering Dr: Verónica Lopez NP COMMAND AND CONTROL SPECIALIST -Jennifer PROCEDURE: SCRN MAMM (CAD)W/DORIS BILAT REASON FOR EXAM: F, Age 69 [...] architectural distortion, or suspicious calcifications. BI/SCRN MAMM (CAD)W/DORIS BILAT IMPRESSION: There is no mammographic evidence of malignancy. BI-RADS 2: BENIGN. RECOMMEND ANNUAL MAMMOGRAPHIC SCREENING. Follow-up code: Routine Follow-up The patient will be notified of the results by letter. Reading Location: [id number] CC: KEYA Dias; KEYA Lopez Memory Care Program Resident: Signed Normal [facility] Abdomen Limitedon 10-31-2024 Abdomen Limited [facility] Imaging Services [address] [place] [address] Abdomen Limited MR#: [id number] Acct: [id number] Name: BO JACOB Rep #: [id number] : 1955 F 69 From: Paulo Wilkerson PCP: KEYA Reaves Status: REG CLI Study: Abdomen Limited Date of Exam: 10/31/24 Exam# [id number] Ordering Dr: Antonia Escalante MD PROCEDURE: ABDOMEN [...] Small gallbladder polyps. Reading Location: [facility] CC: COMMAND AND CONTROL SPECIALIST-C Loan Dias; Dr. Antonia Escalante MD Memory Care Program Resident: Signed Normal [facility] CNOVon 10-28-2024 CNOV Normal [facility] Magnetic resonance imaging r eportOrdered By: Jessie Cardenas on 10-28-2024 Study report [facility] Imaging Services [address], [place] [address] Spine Lumbar (Routine) MR#: [id number] Acct: [id number] Name: BO JACOB Rep #: [id number] : 1955 F 69 From: Christina Cardenas MD PCP: KEYA Reaves Status: REG CLI Study:Spine Lumbar (Routine) Date of Exam: 10/27/24 Exam# [id number] Ordering Dr: Aruna Barclay MD PROCEDURE: SPINE [...] foraminal region. Ligamentum flavum hypertrophy. Facet arthropathy. Fehvphjz-al-dbvute focal spinal canal stenosis with virtually complete effacement of CSF. Narrowing of the bilateral lateral recesses. Mild/moderate bilateral foraminal stenoses. L5-S1: Mild diffuse disc bulging. Facet arthropathy. No significant focal spinal canal stenosis. Mild bilateral foraminal stenosis. Other: At least imaged three incompletely imaged right lobe hepatic lesions superiorly and inferiorly on the clinic coordinator up to 2.5 cm, possibly cysts, but not well evaluated. Cervical and thoracic spondylosis not well evaluated. MRI/Spine Lumbar (Routine) IMPRESSION: 1. Multilevel spondylosis as above. Spinal canal stenoses up to tvrhxkxx-uu-ggtlhm at L4-L5. No high-grade foraminal stenosis identified. [...] 3. Additional description as above. Reading Location: [id number] CC: KEYA Dias; Dr. Mariajose Barclay MD ~ Memory Care Program Resident: Signed [facility] Radiation Oncology Visiton 0 10-27-2024 Radiation Oncology Visit [facility] [address] [place] [address] OFFICE VISIT Date of Service: 10/27/24 1430 MR#: [id number] Acct: [id number] Name: BO JACOB Rep #: [id number] : 1955 From: João Kong DO Age/Sex: 69/F Location: [facility] Status: Signed Intake Vital Signs 10/08/24 17:44 [...] patient in pain?: No Allergies acetaminophen (From [place]) Allergy (Intermediate, Verified 10/27/24 14:32) Rash adhesive tape Allergy (Intermediate, Verified 10/27/24 14:32) Hives hydrocodone (From [place]) Allergy (Intermediate, Verified 10/27/24 14:32) Rash oxycodone [...] Reaction Status Date / Time acetaminophen (From [facility]) Allergy Intermediate Rash Verified 10/27/24 14:32 adhesive tape Allergy Intermediate Hives Verified 10/27/24 14:32 hydrocodone (From [place]) Allergy Intermediate Rash Verified 10/27/24 14:32 oxycodone Allergy Intermediate Rash Verified 10/27/24 14:32 anastrozole AdvReac Severe joint Verified 10/27/24 14:32 pain, anxiety, hot flashes Famil (more content not included)... Normal [facility] Spine Lumbar (Routine)on Spine Lumbar (Routine) [facility] Imaging Services [address] [place] [id number] Spine Lumbar (Routine) MR#: [id number] Acct: [id number] Name: BO JACOB Rep #: [id number] : 1955 F 69 From: Jessie Cardenas MD PCP: KEYA Reaves Status: REG CLI Study: Spine Lumbar (Routine) Date of Exam: 10/27/24 Exam# [id number] Ordering Dr: Mariajose Barclay MD PROCEDURE: SPINE [...] foraminal region. Ligamentum flavum hypertrophy. Facet arthropathy. Ldicdfkm-wr-bimfmt focal spinal canal stenosis with virtually complete effacement of CSF. Narrowing of the bilateral lateral recesses. Mild/moderate bilateral foraminal stenoses. L5-S1: Mild diffuse disc bulging. Facet arthropathy. No significant focal spinal canal stenosis. Mild bilateral foraminal stenosis. Other: At least imaged three incompletely imaged right lobe hepatic lesions superiorly and inferiorly on the clinic coordinator up to 2.5 cm, possibly cysts, but not well evaluated. Cervical and thoracic spondylosis not well evaluated. MRI/Spine Lumbar (Routine) IMPRESSION: 1. Multilevel spondylosis as above. Spinal canal stenoses up to okoethqz-rh-hmhysw at L4-L5. No high-grade foraminal stenosis identified. [...] 3. Additional description as above. Reading Location: [id number] CC: KEYA Dias; Dr. Mariajose Barclay MD Memory Care Program Resident: Signed Normal [facility] 10-26-[address] [facility] 2000 panelon 09-30-2024 Anion gap [Moles/Vol] 10 mmol/L Normal 8-15 [facility] Comment on above: Order Comment: Speci men Type: BLOOD SPECIMENOrdering Facility: [facility] Address: [address] [place] [address] Performed By: #### 2 4321-2 ####[facility] LABORATORYCLIA [id number] [place] [address] [place] Calcium [Mass/Vol] 8.1 mg/dL Low 8.5-10.2 [facility] Comment on above: Order Comment: Speci men Type: BLOOD SPECIMENOrdering Facility: [facility] Address: [address] [place] [address] Performed By: #### 2 4321-2 ####[facility]ORATORYCLIA [id number] [place] [address] [place] Chloride [Moles/Vol] 107 mmol/L Normal 98-107 [facility] Comment on above: Order Comment: Speci men Type: BLOOD SPECIMENOrdering Facility: [facility] Address: [address] [place] [address] Performed By: #### 2 4321-2 ####[facility]ORATORYCLIA [id number] [place] [address] [place] CO2 [Moles/Vol] 20 mmol/L Low 22-30 [facility] Comment on above: Order Comment: Speci men Type: BLOOD SPECIMENOrdering Facility: [facility] Address: [address] [place] [address] Performed By: #### 2 4321-2 ####[facility]ORATORYCLIA [id number] [place] [address] [place] Creatinine [Mass/Vol] 0.85 mg/dL Normal 0.58-0.96 [facility] Comment on above: Order Comment: Speci men Type: BLOOD SPECIMENOrdering Facility: [facility] Address: [address] [place] [address] Performed By: #### 2 4321-2 ####[facility]IST HOSPITALSIA [id number] [address] [place] Creatinine and Glomerular filtration rate.predicted panel (S/P/Bld) 74 mL/min/1.73m??? Normal >=60 [facility] Comment on above: Order Comment: Prince men Type: BLOOD SPECIMENOrdering Facility: [facility] Address: [address] [place] [address] Result Comment: Conchita mated Glomerular Filtration Rate [...] actual GFR. Performed By: #### 2 4321-2 ####[facility]IST HOSPITALSIA [id number] [place] [address] [place] Glucose [Mass/Vol] 129 mg/dL High 74-99 [facility] Comment on above: Order Comment: Prince omer Type: BLOOD SPECIMENOrdering Facility: [facility] Address: [address] [place] [address] Result Comment: The [place] [employer] (ADA) provides guidance for cutoff [...] Standards of Medical Care in Diabetes 2016, [employer]. Diabetes Care. 2016.39(Suppl 1). Performed By: #### 2 4321-2 ####[facility]ORATORYCLIA [id number] [place] [address] [place] Potassium [Moles/Vol] 3.7 mmol/L Normal 3.7-5.1 [facility] Comment on above: Order Comment: Speci men Type: BLOOD SPECIMENOrdering Facility: [facility] Address: [address] [place] [address] Performed By: #### 2 4321-2 ####[facility]ORATORYCLIA [id number] [place] [address] [place] Sodium [Moles/Vol] 137 mmol/L Normal 136-144 [facility] Comment on above: Order Comment: Speci men Type: BLOOD SPECIMENOrdering Facility: [facility] Address: [address] [place] [address] Performed By: #### 2 4321-2 ####[facility]ORATORYCLIA [id number] [place] [address] [place] Urea nitrogen [Mass/Vol] 14 mg/dL Normal 7-21 [facility] Comment on above: Order Comment: Speci men Type: BLOOD SPECIMENOrdering Facility: [facility] Address: [address] [place] [address] Performed By: #### 2 4321-2 ####[facility]ORATORYCLIA [id number] [place] [address] [place] Anion gap [Moles/Vol] 11 mmol/L Normal 8-15 [facility] Comment on above: Order Comment: Speci men Type: BLOOD SPECIMENOrdering Facility: [facility] Address: [address] [place] [address] Performed By: #### 2 4321-2 ####[facility]ORATORYCLIA [id number] [place] [address] [place] Calcium [Mass/Vol] 9.2 mg/dL Normal 8.5-10.2 [facility] Comment on above: Order Comment: Speci men Type: BLOOD SPECIMENOrdering Facility: [facility] Address: [address] [place] [address] Performed By: #### 2 4321-2 ####[facility]ORATORYCLIA [id number] [address] [place] Chloride [Moles/Vol] 97 mmol/L Low 98-107 [facility] Comment on above: Order Comment: Speci men Type: BLOOD SPECIMENOrdering Facility: [facility] Address: [address] [place] [address] Performed By: #### 2 4321-2 ####[facility]ORATORYCLIA [id number] [address] [facility] CO2 [Moles/Vol] 21 mmol/L Low 22-30 [facility] Comment on above: Order Comment: Speci men Type: BLOOD SPECIMENOrdering Facility: [facility] Address: [address] [place] [address] Performed By: #### 2 4321-2 ####[facility]ORATORYCLIA [id number] [address] [facility] Creatinine [Mass/Vol] 0.94 mg/dL Normal 0.58-0.96 [facility] Comment on above: Order Comment: Speci men Type: BLOOD SPECIMENOrdering Facility: [facility] Address: [address] [place] [address] Performed By: #### 2 4321-2 ####[facility]ORATORYCLIA [id number] [address] Creatinine and Glomerular filtration rate.predicted panel (S/P/Bld) 66 mL/min/1.73m??? Normal >=60 [facility] Comment on above: Order Comment: Speci men Type: BLOOD SPECIMENOrdering Facility: [facility] Address: [address] [place] [address] Result Comment: Conchita mated Glomerular Filtration Rate [...] actual GFR. Performed By: #### 2 4321-2 ####[facility]ORATORYCLIA [id number] [place] [address] [place] Glucose [Mass/Vol] 97 mg/dL Normal 74-99 [facility] Comment on above: Order Comment: Speci men Type: BLOOD SPECIMENOrdering Facility: [facility] Address: [address] [place] [address] Result Comment: The [place] Diabetes Association (ADA) provides guidance for cutoff [...] Standards of Medical Care in Diabetes 2016, [place]. Diabetes Care. 2016.39(Suppl 1). Performed By: #### 2 4321-2 ####[facility]ORATORYCLIA [id number] [place] [address] [place] Potassium [Moles/Vol] 3.7 mmol/L Normal 3.7-5.1 [facility] Comment on above: Order Comment: Speci men Type: BLOOD SPECIMENOrdering Facility: [facility] Address: [address] [place] [address] Performed By: #### 2 4321-2 ####[facility] LABORATORYCLIA [id number] [place] [id number] [place] Sodium [Moles/Vol] 129 mmol/L Low 136-144 [facility] Comment on above: Order Comment: Speci men Type: BLOOD SPECIMENOrdering Facility: [facility] Address: [address] [id number] Performed By: #### 2 4321-2 ####[facility]ORATORYCLIA [id number] [place] [address] [place] Urea nitrogen [Mass/Vol] 18 mg/dL Normal 7-21 [facility] Comment on above: Order Comment: Speci men Type: BLOOD SPECIMENOrdering Facility: [facility] Address: [address] [place] [address] Performed By: #### 2 4321-2 ####[facility]ORATORYCLIA [id number] [place] [address] [place] CASE MANAGEMon 09-30-2024 CASE MANAGEM Normal [facility] CASE MANAGEM Normal [facility] CNDSon 09-30-2024 CNDS Normal [facility] CNPNon 09-30-2024 CNPN Normal [facility] CONSULT PROGon 09-30-2024 CONSULT PROG Normal [facility] CONSULT PROG Normal [facility] THERAPY NTon 09-30-2024 THERAPY NT Normal [facility] THERAPY NT Normal [facility] CBC W Auto Differential pane l (Bld)on 09-29-2024 Basophils (Bld) [#/Vol] 0.05 10*3/uL Normal <0.11 [facility] Comment on above: Order Comment: Speci men Type: BLOOD SPECIMENOrdering Facility: [facility] Address: [address] [place] [address] Performed By: #### 5 7021-8 ####[facility]ORATORYCLIA [id number] [address] [place] Basophils/100 WBC (Bld) 0.8 % Normal [facility] Comment on above: Order Comment: Speci men Type: BLOOD SPECIMENOrdering Facility: [facility] Address: [address] [place] [address] Performed By: #### 5 7021-8 ####[facility]ORATORYCLIA [id number] [place] [address] [place] Differential cell count method Nom (Bld) Auto Normal [facility] Comment on above: Order Comment: Speci men Type: BLOOD SPECIMENOrdering Facility: [facility] Address: [address] [place] [address] Performed By: #### 5 7021-8 ####[facility]ORATORYCLIA [id number] [address] [place] Eosinophils (Bld) [#/Vol] 0.23 10*3/uL Normal <0.46 [facility] Comment on above: Order Comment: Speci men Type: BLOOD SPECIMENOrdering Facility: [facility] Address: [address] [place] [address] Performed By: #### 5 7021-8 ####[facility] LABORATORYCLIA [id number] [address] [place] Eosinophils/100 WBC (Bld) 3.8 % Normal [facility] Comment on above: Order Comment: Speci men Type: BLOOD SPECIMENOrdering Facility: [facility] Address: [address] [place] [address] Performed By: #### 5 7021-8 ####[facility]ORATORYCLIA [id number] [address] [place] [facility] Erythrocyte distribution width (RBC) [Ratio] 12.4 % Normal 11.5-15.0 [facility] Comment on above: Order Comment: Speci men Type: BLOOD SPECIMENOrdering Facility: [facility] Address: [address] [place] [address] Performed By: #### 5 7021-8 ####[facility]ORATORYCLIA [id number] [address] [place] Hematocrit (Bld) [Volume fraction] 43.3 % Normal 36.0-46.0 [facility] Comment on above: Order Comment: Speci men Type: BLOOD SPECIMENOrdering Facility: [facility] Address: [address] [place] [address] Performed By: #### 5 7021-8 ####[facility]ORATORYCLIA [id number] [address] [place] Hemoglobin (Bld) [Mass/Vol] 14.9 g/dL Normal 11.5-15.5 [facility] Comment on above: Order Comment: Speci men Type: BLOOD SPECIMENOrdering Facility: [facility] Address: [address] [place] [address] Performed By: #### 5 7021-8 ####[facility]ORATORYCLIA [id number] [address] [place] Immature granulocytes (Bld) [#/Vol] 0.04 10*3/uL Normal <0.10 [facility] Comment on above: Order Comment: Speci men Type: BLOOD SPECIMENOrdering Facility: [facility] Address: [address] [place] [address] Performed By: #### 5 7021-8 ####[facility]ORATORYCLIA [id number] [address] Immature granulocytes/100 WBC (Bld) 0.7 % Normal [facility] Comment on above: Order Comment: Speci men Type: BLOOD SPECIMENOrdering Facility: [facility] Address: [address] [place] [address] Performed By: #### 5 7021-8 ####[facility]ORATORYCLIA [id number] [address] [place] Lymphocytes (Bld) [#/Vol] 1.10 10*3/uL Normal 1.00-4.00 [facility] Comment on above: Order Comment: Speci men Type: BLOOD SPECIMENOrdering Facility: [facility] Address: [address] [place] [address] Performed By: #### 5 7021-8 ####[facility]ORATORYCLIA [id number] [address] Lymphocytes/100 WBC (Bld) 18.4 % Normal [facility] Comment on above: Order Comment: Speci men Type: BLOOD SPECIMENOrdering Facility: [facility] Address: [address] [place] [address] Performed By: #### 5 7021-8 ####[facility]ORATORYCLIA [id number] [address] [place] MCH (RBC) [Entitic mass] 30.9 pg Normal 26.0-34.0 [facility] Comment on above: Order Comment: Speci men Type: BLOOD SPECIMENOrdering Facility: [facility] Address: [address] [place] [address] Performed By: #### 5 7021-8 ####[facility]ORATORYCLIA [id number] [address] STATES OF [facility] MCHC (RBC) [Mass/Vol] 34.4 g/dL Normal 30.5-36.0 [facility] Comment on above: Order Comment: Speci men Type: BLOOD SPECIMENOrdering Facility: [facility] Address: [address] [place] [address] Performed By: #### 5 7021-8 ####[facility]ORATORYCLIA [id number] [address] MCV (RBC) [Entitic vol] 89.8 fL Normal 80.0-100.0 [facility] Comment on above: Order Comment: Speci men Type: BLOOD SPECIMENOrdering Facility: [facility] Address: [address] [place] [address] Performed By: #### 5 7021-8 ####[facility]ORATORYCLIA [id number] [address] Monocytes (Bld) [#/Vol] 0.56 10*3/uL Normal <0.87 [facility] Comment on above: Order Comment: Speci men Type: BLOOD SPECIMENOrdering Facility: [facility] Address: [address] [place] [address] Performed By: #### 5 7021-8 ####[facility]ORATORYCLIA [id number] [address] Monocytes/100 WBC (Bld) 9.4 % Normal [facility] Comment on above: Order Comment: Speci men Type: BLOOD SPECIMENOrdering Facility: [facility] Address: [address] [place] [address] Performed By: #### 5 7021-8 ####[facility]ORATORYCLIA [id number] [place] [address] [place] Neutrophils (Bld) [#/Vol] 4.00 10*3/uL Normal 1.45-7.50 [facility] Comment on above: Order Comment: Speci men Type: BLOOD SPECIMENOrdering Facility: [facility] Address: [address] [place] [address] Performed By: #### 5 7021-8 ####[facility]ORATORYCLIA [id number] [place] [address] [place] Neutrophils/100 WBC (Bld) 66.9 % Normal [facility] Comment on above: Order Comment: Speci men Type: BLOOD SPECIMENOrdering Facility: [facility] Address: [address] [place] [address] Performed By: #### 5 7021-8 ####[facility]ORATORYCLIA [id number] [address] [place] Nucleated RBC (Bld) [#/Vol] 10*3/uL Normal <0.01 [facility] Comment on above: Order Comment: Speci men Type: BLOOD SPECIMENOrdering Facility: [facility] Address: [address] [place] [address] Performed By: #### 5 7021-8 ####[facility]ORATORYCLIA [id number] [address] [place] Nucleated RBC/100 WBC (Bld) [Ratio] 0.0 /100 WBC Normal [facility] Comment on above: Order Comment: Speci men Type: BLOOD SPECIMENOrdering Facility: [facility] Address: [address] [place] [address] Performed By: #### 5 7021-8 ####[facility]ORATORYCLIA [id number] [address] [place] Platelet mean volume (Bld) [Entitic vol] 9.6 fL Normal 9.0-12.7 [facility] Comment on above: Order Comment: Speci men Type: BLOOD SPECIMENOrdering Facility: [facility] Address: [address] [place] [address] Performed By: #### 5 7021-8 ####[facility]ORATORYCLIA [id number] [place] [address] [place] Platelets (Bld) [#/Vol] 278 10*3/uL Normal 150-400 [facility] Comment on above: Order Comment: Speci men Type: BLOOD SPECIMENOrdering Facility: [facility] Address: [address] [place] [address] Performed By: #### 5 7021-8 ####[facility]ORATORYCLIA [id number] [place] [address] [place] RBC (Bld) [#/Vol] 4.82 10*6/uL Normal 3.90-5.20 [facility] Comment on above: Order Comment: Speci men Type: BLOOD SPECIMENOrdering Facility: [facility] Address: [address] [place] [address] Performed By: #### 5 7021-8 ####[facility]ORATORYCLIA [id number] [address] WBC (Bld) [#/Vol] 5.98 10*3/uL Normal 3.70-11.00 [facility] Comment on above: Order Comment: Speci men Type: BLOOD SPECIMENOrdering Facility: [facility] Address: [address] [place] [address] Performed By: #### 5 7021-8 ####[facility]ORATORYCLIA [id number] [place] [id number] [facility] [place] Comprehensive metabolic 2000 panelon 09-29-2024 Albumin [Mass/Vol] 4.0 g/dL Normal 3.9-4.9 [facility] Comment on above: Order Comment: Speci men Type: BLOOD SPECIMENOrdering Facility: [facility] Address: [address] [place] [address] Performed By: #### 2 4323-8 ####[facility]ORATORYCLIA [id number] [address] [place] ALP [Catalytic activity/Vol] 127 U/L High 34-123 [facility] Comment on above: Order Comment: Speci men Type: BLOOD SPECIMENOrdering Facility: [facility] Address: [address] [place] [address] Performed By: #### 2 4323-8 ####[facility] LABORATORYCLIA [id number] [place] [address] [place] ALT With P-5'-P [Catalytic activity/Vol] 31 U/L Normal 7-38 [facility] Comment on above: Order Comment: Speci men Type: BLOOD SPECIMENOrdering Facility: [facility] Address: [address] [place] [address] Performed By: #### 2 4323-8 ####[facility]ORATORYCLIA [id number] [address] [place] Anion gap [Moles/Vol] 11 mmol/L Normal 8-15 [facility] Comment on above: Order Comment: Speci men Type: BLOOD SPECIMENOrdering Facility: [facility] Address: [address] [place] [address] Performed By: #### 2 4323-8 ####[facility]ORATORYCLIA [id number] [address] [place] AST With P-5'-P [Catalytic activity/Vol] 22 U/L Normal 13-35 [facility] Comment on above: Order Comment: Speci men Type: BLOOD SPECIMENOrdering Facility: [facility] Address: [address] [place] [address] Performed By: #### 2 4323-8 ####[facility] LABORATORYCLIA [id number] [place] [address] [place] Bilirubin [Mass/Vol] 0.6 mg/dL Normal 0.2-1.3 [facility] Comment on above: Order Comment: Speci men Type: BLOOD SPECIMENOrdering Facility: [facility] Address: [address] [place] [address] Performed By: #### 2 4323-8 ####[facility]ORATORYCLIA [id number] [place] [address] [place] Calcium [Mass/Vol] 9.1 mg/dL Normal 8.5-10.2 [facility] Comment on above: Order Comment: Speci men Type: BLOOD SPECIMENOrdering Facility: [facility] Address: [address] [place] [address] Performed By: #### 2 4323-8 ####[facility]ORATORYCLIA [id number] [place] [address] [place] Chloride [Moles/Vol] 101 mmol/L Normal 98-107 [facility] Comment on above: Order Comment: Speci men Type: BLOOD SPECIMENOrdering Facility: [facility] Address: [address] [place] [address] Performed By: #### 2 4323-8 ####[facility]ORATORYCLIA [id number] [place] [address] [place] CO2 [Moles/Vol] 23 mmol/L Normal 22-30 [facility] Comment on above: Order Comment: Speci men Type: BLOOD SPECIMENOrdering Facility: [facility] Address: [address] [place] [address] Performed By: #### 2 4323-8 ####[facility]ORATORYCLIA [id number] [place] [address] [place] Creatinine [Mass/Vol] 0.93 mg/dL Normal 0.58-0.96 [facility] Comment on above: Order Comment: Speci men Type: BLOOD SPECIMENOrdering Facility: [facility] Address: [address] [place] [address] Performed By: #### 2 4323-8 ####[facility]ORATORYCLIA [id number] [address] [place] Creatinine and Glomerular filtration rate.predicted panel (S/P/Bld) 67 mL/min/1.73m??? Normal >=60 [facility] Comment on above: Order Comment: Speci men Type: BLOOD SPECIMENOrdering Facility: [facility] Address: [address] [place] [address] Result Comment: Conchita mated Glomerular Filtration Rate [...] actual GFR. Performed By: #### 2 4323-8 ####[facility]ORATORYCLIA [id number] [place] [address] [place] Glucose [Mass/Vol] 94 mg/dL Normal 74-99 [facility] Comment on above: Order Comment: Prince omer Type: BLOOD SPECIMENOrdering Facility: [facility] Address: [address] [place] [id number] Result Comment: The [place] (ADA) provides guidance for cutoff [...] Standards of Medical Care in Diabetes 2016, [employer]. Diabetes Care. 2016.39(Suppl 1). Performed By: #### 2 4323-8 ####[facility]ORATORYCLIA [id number] [place] [address] [place] Potassium [Moles/Vol] 4.3 mmol/L Normal 3.7-5.1 [facility] Comment on above: Order Comment: Prince omer Type: BLOOD SPECIMENOrdering Facility: [facility] Address: [address] [place] [address] Performed By: #### 2 4323-8 ####[facility]ORATORYCLIA [id number] [place] [address] [place] Protein [Mass/Vol] 6.1 g/dL Low 6.3-8.0 [facility] Comment on above: Order Comment: Speci men Type: BLOOD SPECIMENOrdering Facility: [facility] Address: [address] [place] [address] Performed By: #### 2 4323-8 ####[facility]ORATORYCLIA [id number] [place] [address] [place] Sodium [Moles/Vol] 135 mmol/L Low 136-144 [facility] Comment on above: Order Comment: Speci men Type: BLOOD SPECIMENOrdering Facility: [facility] Address: [address] [place] [address] Performed By: #### 2 4323-8 ####[facility]ORATORYCLIA [id number] [place] [address] [place] Urea nitrogen [Mass/Vol] 22 mg/dL High 7-21 [facility] Comment on above: Order Comment: Speci men Type: BLOOD SPECIMENOrdering Facility: [facility] Address: [address] [place] [address] Performed By: #### 2 4323-8 ####[facility]ORATORYCLIA [id number] [place] [address] [place] Basic metabolic 2000 panelon 09-28-2024 Anion gap [Moles/Vol] 14 mmol/L Normal 8-15 [facility] Comment on above: Order Comment: Speci men Type: BLOOD SPECIMENOrdering Facility: [facility] Address: [address] [place] [address] Performed By: #### 1 9123-9, 66367-3, 277- ####[facility]ORATORYCLIA [id number] [place] [address] [place] Calcium [Mass/Vol] 9.9 mg/dL Normal 8.5-10.2 [facility] Comment on above: Order Comment: Speci men Type: BLOOD SPECIMENOrdering Facility: [facility] Address: [address] [place] [address] Performed By: #### 1 9123-9, 12411-7, 2777-1 ####[facility]ORATORYCLIA [id number] [address] [place] Chloride [Moles/Vol] 96 mmol/L Low 98-107 [facility] Comment on above: Order Comment: Speci men Type: BLOOD SPECIMENOrdering Facility: [facility] Address: [address] [place] [address] Performed By: #### 1 9123-9, 50325-5, 2777-1 ####[facility]ORATORYCLIA [id number] [address] STATES OF [facility] CO2 [Moles/Vol] 23 mmol/L Normal 22-30 [facility] Comment on above: Order Comment: Speci men Type: BLOOD SPECIMENOrdering Facility: [facility] Address: [address] [place] [address] Performed By: #### 1 9123-9, 82584-1, 2777-1 ####[facility]ORATORYCLIA [id number] [address] Creatinine [Mass/Vol] 0.90 mg/dL Normal 0.58-0.96 [facility] Comment on above: Order Comment: Speci men Type: BLOOD SPECIMENOrdering Facility: [facility] Address: [address] [place] [address] Performed By: #### 1 9123-9, 13466-7, 2777-1 ####[facility]ORATORYCLIA [id number] [address] Creatinine and Glomerular filtration rate.predicted panel (S/P/Bld) 69 mL/min/1.73m??? Normal >=60 [facility] Comment on above: Order Comment: Speci men Type: BLOOD SPECIMENOrdering Facility: [facility] Address: [address] [place] [address] Result Comment: Conchita mated Glomerular Filtration Rate [...] actual GFR. Performed By: #### 1 9123-9, 92108-2, 2776-08 ####[facility]ITALCLIA [id number] [place] [address] [place] Glucose [Mass/Vol] 121 mg/dL High 74-99 [facility] Comment on above: Order Comment: Prince omer Type: BLOOD SPECIMENOrdering Facility: [facility] Address: [address] [place] [address] Result Comment: The [place] Diabetes [employer] (ADA) provides guidance for cutoff [...] Standards of Medical Care in Diabetes 2016, [employer]. Diabetes Care. 2016.39(Suppl 1). Performed By: #### 1 9123-9, 07055-2, 2776-08 ####[facility] HOSPITALCLIA [id number] [place] [address] [place] Potassium [Moles/Vol] 4.0 mmol/L Normal 3.7-5.1 [facility] Comment on above: Order Comment: Prince omer Type: BLOOD SPECIMENOrdering Facility: [facility] Address: [address] [place] [address] Performed By: #### 1 9123-9, 85441-1, 2776-08 ####[facility]ORATORYIA [id number] [place] [address] [place] Sodium [Moles/Vol] 133 mmol/L Low 136-144 [facility] Comment on above: Order Comment: Prince omer Type: BLOOD SPECIMENOrdering Facility: [facility] Address: [address] [place] [address] Performed By: #### 1 9123-9, 70152-6, 2777-1 ####[facility]ORATORYCLIA [id number] [address] [place] Urea nitrogen [Mass/Vol] 17 mg/dL Normal 7-21 [facility] Comment on above: Order Comment: Speci men Type: BLOOD SPECIMENOrdering Facility: [facility] Address: [address] [place] [address] Performed By: #### 1 9123-9, 36404-6, 277- ####[facility]ORATORYCLIA [id number] [address] [place] CASE MANAGEMon 09-28-2024 CASE MANAGEM Normal [facility] CBC W Auto Differential pane l (Bld)on 09-28-2024 Basophils (Bld) [#/Vol] 0.05 10*3/uL Normal <0.11 [facility] Comment on above: Order Comment: Speci men Type: BLOOD SPECIMENOrdering Facility: [facility] Address: [address] [place] [address] Performed By: #### 5 7021-8 ####[facility]ATORYCLIA [id number] [address] [place] Basophils/100 WBC (Bld) 0.8 % Normal [facility] Comment on above: Order Comment: Speci men Type: BLOOD SPECIMENOrdering Facility: [facility] Address: [address] [place] [address] Performed By: #### 5 7021-8 ####[facility]ATORYCLIA [id number] [address] [place] Differential cell count method Nom (Bld) Auto Normal [facility] Comment on above: Order Comment: Speci men Type: BLOOD SPECIMENOrdering Facility: [facility] Address: [address] [place] [address] Performed By: #### 5 7021-8 ####[facility]ATORYCLIA [id number] [place] [address] [place] Eosinophils (Bld) [#/Vol] 0.22 10*3/uL Normal <0.46 [facility] Comment on above: Order Comment: Speci men Type: BLOOD SPECIMENOrdering Facility: [facility] Address: [address] [place] [address] Performed By: #### 5 7021-8 ####[facility]ATORYCLIA [id number] [address] Eosinophils/100 WBC (Bld) 3.4 % Normal [facility] Comment on above: Order Comment: Speci men Type: BLOOD SPECIMENOrdering Facility: [facility] Address: [address] [place] [address] Performed By: #### 5 7021-8 ####[facility]ORATORYCLIA [id number] [address] Erythrocyte distribution width (RBC) [Ratio] 12.1 % Normal 11.5-15.0 [facility] Comment on above: Order Comment: Speci men Type: BLOOD SPECIMENOrdering Facility: [facility] Address: [address] [place] [address] Performed By: #### 5 7021-8 ####[facility]ATORYCLIA [id number] [address] Hematocrit (Bld) [Volume fraction] 46.4 % High 36.0-46.0 [facility] Comment on above: Order Comment: Speci men Type: BLOOD SPECIMENOrdering Facility: [facility] Address: [address] [place] [address] Performed By: #### 5 7021-8 ####[facility]ATORYCLIA [id number] [address] [place] Hemoglobin (Bld) [Mass/Vol] 16.1 g/dL High 11.5-15.5 [facility] Comment on above: Order Comment: Speci men Type: BLOOD SPECIMENOrdering Facility: [facility] Address: [address] [place] [address] Performed By: #### 5 7021-8 ####[facility]ATORYCLIA [id number] [address] [place] Immature granulocytes (Bld) [#/Vol] 0.04 10*3/uL Normal <0.10 [facility] Comment on above: Order Comment: Speci men Type: BLOOD SPECIMENOrdering Facility: [facility] Address: [address] [place] [address] Performed By: #### 5 7021-8 ####[facility]ORATORYCLIA [id number] [address] STATES OF [facility] Immature granulocytes/100 WBC (Bld) 0.6 % Normal [facility] Comment on above: Order Comment: Speci men Type: BLOOD SPECIMENOrdering Facility: [facility] Address: [address] [place] [address] Performed By: #### 5 7021-8 ####[facility]ATORYCLIA [id number] [address] [place] Lymphocytes (Bld) [#/Vol] 1.77 10*3/uL Normal 1.00-4.00 [facility] Comment on above: Order Comment: Speci men Type: BLOOD SPECIMENOrdering Facility: [facility] Address: [address] [place] [address] Performed By: #### 5 7021-8 ####[facility]ORATORYCLIA [id number] [address] [place] Lymphocytes/100 WBC (Bld) 27.1 % Normal [facility] Comment on above: Order Comment: Speci men Type: BLOOD SPECIMENOrdering Facility: [facility] Address: [address] [place] [address] Performed By: #### 5 7021-8 ####[facility]ORATORYCLIA [id number] [place] [address] [place] MCH (RBC) [Entitic mass] 31.6 pg Normal 26.0-34.0 [facility] Comment on above: Order Comment: Speci men Type: BLOOD SPECIMENOrdering Facility: [facility] Address: [address] [place] [address] Performed By: #### 5 7021-8 ####[facility]ATORYCLIA [id number] [address] [place] MCHC (RBC) [Mass/Vol] 34.7 g/dL Normal 30.5-36.0 [facility] Comment on above: Order Comment: Speci men Type: BLOOD SPECIMENOrdering Facility: [facility] Address: [address] [place] [address] Performed By: #### 5 7021-8 ####[facility]ATORYCLIA [id number] [address] [place] MCV (RBC) [Entitic vol] 91.0 fL Normal 80.0-100.0 [facility] Comment on above: Order Comment: Speci men Type: BLOOD SPECIMENOrdering Facility: [facility] Address: [address] [place] [address] Performed By: #### 5 7021-8 ####[facility]ATORYCLIA [id number] [address] [place] Monocytes (Bld) [#/Vol] 0.51 10*3/uL Normal <0.87 [facility] Comment on above: Order Comment: Speci men Type: BLOOD SPECIMENOrdering Facility: [facility] Address: [address] [place] [address] Performed By: #### 5 7021-8 ####[facility]ATORYCLIA [id number] [address] Monocytes/100 WBC (Bld) 7.8 % Normal [facility] Comment on above: Order Comment: Speci men Type: BLOOD SPECIMENOrdering Facility: [facility] Address: [address] [place] [address] Performed By: #### 5 7021-8 ####[facility]ATORYCLIA [id number] [address] [place] Neutrophils (Bld) [#/Vol] 3.94 10*3/uL Normal 1.45-7.50 [facility] Comment on above: Order Comment: Speci men Type: BLOOD SPECIMENOrdering Facility: [facility] Address: [address] [place] [address] Performed By: #### 5 7021-8 ####[facility]ATORYCLIA [id number] [address] Neutrophils/100 WBC (Bld) 60.3 % Normal [facility] Comment on above: Order Comment: Speci men Type: BLOOD SPECIMENOrdering Facility: [facility] Address: [address] [place] [address] Performed By: #### 5 7021-8 ####[facility]ATORYCLIA [id number] [address] Nucleated RBC (Bld) [#/Vol] 10*3/uL Normal <0.01 [facility] Comment on above: Order Comment: Speci men Type: BLOOD SPECIMENOrdering Facility: [facility] Address: [address] [place] [address] Performed By: #### 5 7021-8 ####[facility]ATORYCLIA [id number] [address] Nucleated RBC/100 WBC (Bld) [Ratio] 0.0 /100 WBC Normal [facility] Comment on above: Order Comment: Speci men Type: BLOOD SPECIMENOrdering Facility: [facility] Address: [address] [place] [address] Performed By: #### 5 7021-8 ####[facility]ATORYCLIA [id number] [address] Platelet mean volume (Bld) [Entitic vol] 9.5 fL Normal 9.0-12.7 [facility] Comment on above: Order Comment: Speci men Type: BLOOD SPECIMENOrdering Facility: [facility] Address: [address] [place] [address] Performed By: #### 5 7021-8 ####[facility]ATORYCLIA [id number] [address] Platelets (Bld) [#/Vol] 298 10*3/uL Normal 150-400 [facility] Comment on above: Order Comment: Speci men Type: BLOOD SPECIMENOrdering Facility: [facility] Address: [address] [place] [address] Performed By: #### 5 7021-8 ####[facility]ATORYCLIA [id number] [address] STATES OF [facility] RBC (Bld) [#/Vol] 5.10 10*6/uL Normal 3.90-5.20 [facility] Comment on above: Order Comment: Speci men Type: BLOOD SPECIMENOrdering Facility: [facility] Address: [address] [place] [address] Performed By: #### 5 7021-8 ####[facility]ATORYCLIA [id number] [address] STATES OF [facility] WBC (Bld) [#/Vol] 6.53 10*3/uL Normal 3.70-11.00 [facility] Comment on above: Order Comment: Speci men Type: BLOOD SPECIMENOrdering Facility: [facility] Address: [address] [place] [address] Performed By: #### 5 7021-8 ####[facility]ORATORYCLIA [id number] [address] OF [facility] Comprehensive metabolic 2000 panelon 09-28-2024 Albumin [Mass/Vol] 4.3 g/dL Normal 3.9-4.9 [facility] Comment on above: Order Comment: Speci men Type: BLOOD SPECIMENOrdering Facility: [facility] Address: [address] [place] [address] Performed By: #### 2 4323-8, 76541-7 ####[facility]ATORYCLIA [id number] [address] ALP [Catalytic activity/Vol] 138 U/L High 34-123 [facility] Comment on above: Order Comment: Speci men Type: BLOOD SPECIMENOrdering Facility: [facility] Address: [address] [place] [address] Performed By: #### 2 432-8, ####[facility]ORATORYCLIA [id number] [place] [address] [place] ALT With P-5'-P [Catalytic activity/Vol] 36 U/L Normal 7-38 [facility] Comment on above: Order Comment: Speci men Type: BLOOD SPECIMENOrdering Facility: [facility] Address: [address] [place] [address] Performed By: #### 2 4323-03, ####[facility]ATORYCLIA [id number] [address] [place] Anion gap [Moles/Vol] 11 mmol/L Normal 8-15 [facility] Comment on above: Order Comment: Speci men Type: BLOOD SPECIMENOrdering Facility: [facility] Address: [address] [place] [address] Performed By: #### 2 4323-03, ####[facility]ORYCLIA [id number] [address] [place] AST With P-5'-P [Catalytic activity/Vol] 35 U/L Normal 13-35 [facility] Comment on above: Order Comment: Speci men Type: BLOOD SPECIMENOrdering Facility: [facility] Address: [address] [place] [address] Performed By: #### 2 4323-03, ####[facility]ATORYCLIA [id number] [place] [address] [place] Bilirubin [Mass/Vol] 0.7 mg/dL Normal 0.2-1.3 [facility] Comment on above: Order Comment: Speci men Type: BLOOD SPECIMENOrdering Facility: [facility] Address: [address] [place] [address] Performed By: #### 2 4328, ####[facility]ATORYCLIA [id number] [place] [address] [place] Calcium [Mass/Vol] 9.3 mg/dL Normal 8.5-10.2 [facility] Comment on above: Order Comment: Speci men Type: BLOOD SPECIMENOrdering Facility: [facility] Address: [address] [place] [address] Performed By: #### 2 432-8, ####[facility]ORATORYCLIA [id number] [place] [id number] [place] Chloride [Moles/Vol] 97 mmol/L Low 98-107 [facility] Comment on above: Order Comment: Speci men Type: BLOOD SPECIMENOrdering Facility: [facility] Address: [address] [place] [address] Performed By: #### 2 4328, ####[facility]ATORYCLIA [id number] [place] [address] [place] CO2 [Moles/Vol] 23 mmol/L Normal 22-30 [facility] Comment on above: Order Comment: Speci men Type: BLOOD SPECIMENOrdering Facility: [facility] Address: [address] [place] [address] Performed By: #### 2 4323-03, ####[facility]ATORYCLIA [id number] [address] [place] Creatinine [Mass/Vol] 0.84 mg/dL Normal 0.58-0.96 [facility] Comment on above: Order Comment: Speci men Type: BLOOD SPECIMENOrdering Facility: [facility] Address: [address] [place] [address] Performed By: #### 2 4328, ####[facility]ATORYCLIA [id number] [address] [place] Creatinine and Glomerular filtration rate.predicted panel (S/P/Bld) 75 mL/min/1.73m??? Normal >=60 [facility] Comment on above: Order Comment: Speci men Type: BLOOD SPECIMENOrdering Facility: [facility] Address: [address] [place] [address] Result Comment: Conchita mated Glomerular Filtration Rate [...] actual GFR. Performed By: #### 2 4323-8, 71898-5 ####[facility]ATORYCLIA [id number] [place] [address] [place] Glucose [Mass/Vol] 101 mg/dL High 74-99 [facility] Comment on above: Order Comment: Prince omer Type: BLOOD SPECIMENOrdering Facility: [facility] Address: [address] [place] [address] Result Comment: The [place] Diabetes [employer] (ADA) provides guidance for cutoff [...] Standards of Medical Care in Diabetes 2016, [employer]. Diabetes Care. 2016.39(Suppl 1). Performed By: #### 2 4323-8, ####[facility]ATORYCLIA [id number] [place] [id number] [place] Potassium [Moles/Vol] 4.0 mmol/L Normal 3.7-5.1 [facility] Comment on above: Order Comment: Prince omer Type: BLOOD SPECIMENOrdering Facility: [facility] Address: [address] [place] [id number] Performed By: #### 2 4323-8, ####[facility]ATORYCLIA [id number] [place] [address] [place] Protein [Mass/Vol] 6.7 g/dL Normal 6.3-8.0 [facility] Comment on above: Order Comment: Speci men Type: BLOOD SPECIMENOrdering Facility: [facility] Address: [address] [place] [address] Performed By: #### 2 4323-8, 88190-1 ####[facility]ATORYCLIA [id number] [place] [address] [place] Sodium [Moles/Vol] 131 mmol/L Low 136-144 [facility] Comment on above: Order Comment: Speci men Type: BLOOD SPECIMENOrdering Facility: [facility] Address: [address] [place] [address] Performed By: #### 2 4323-8, 70938-5 ####[facility]ATORYCLIA [id number] [place] [address] [place] Urea nitrogen [Mass/Vol] 18 mg/dL Normal 7-21 [facility] Comment on above: Order Comment: Speci men Type: BLOOD SPECIMENOrdering Facility: [facility] Address: [address] [place] [address] Performed By: #### 2 4323-8, ####[facility]ATORYCLIA [id number] [place] [address] [place] ECG COMPLETEon 09-28-2024 ECG COMPLETE Normal [facility] ECG COMPLETE Normal [facility] ECHO LIMITEDon 09-28-2024 ECHO LIMITED Normal [facility] HIGH SENSITIVITY TROPONIN To n 09-28-2024 Troponin T.cardiac High sensitivity method [Mass/Vol] 7 ng/L Normal <12 [facility] Comment on above: Order Comment: Speci men Type: BLOOD SPECIMENOrdering Facility: [facility] Address: [address] [place] [address] Performed By: #### H STNT ####[facility]ATORYCLIA [id number] [place] [address] [place] Magnesium SerPl-mCncon 09-28 Magnesium [Mass/Vol] 2.1 mg/dL Normal 1.7-2.3 [facility] Comment on above: Order Comment: Speci men Type: BLOOD SPECIMENOrdering Facility: [facility] Address: [address] [place] [address] Performed By: #### 1 9123-9, 66571-7, 2776- ####[facility]ORATORYCLIA [id number] [place], [place] [id number] [place] [address] [place] [facility] Magnesium [Mass/Vol] 2.1 mg/dL Normal 1.7-2.3 [facility] Comment on above: Order Comment: Speci men Type: BLOOD SPECIMENOrdering Facility: [facility] Address: [address] [place] [address] Performed By: #### 2 4323-8, ####[facility]ATORYCLIA [id number] [address] [place] NURSING PROGon 09-28-2024 NURSING PROG Normal [facility] PT EDon 09-28-2024 PT ED Normal [facility] Phosphate SerPl-mCncon 09-28 Phosphate [Mass/Vol] 3.0 mg/dL Normal 2.7-4.8 [facility] Comment on above: Order Comment: Speci men Type: BLOOD SPECIMENOrdering Facility: [facility] Address: [address] [place] [address] Performed By: #### 1 9123-9, 15574-9, 2776-08 ####[facility]ORATORYCLIA [id number] [place] [id number] [place] Basic metabolic 2000 panelon 09-27-2024 Anion gap [Moles/Vol] 11 mmol/L Normal 8-15 [facility] Comment on above: Order Comment: Speci men Type: BLOOD SPECIMENOrdering Facility: [facility] Address: [address] [place] [address] Performed By: #### 2 4321-2, 87022-1, 2776-08 ####[facility]ORATORYCLIA [id number] [place] [id number] [place] Calcium [Mass/Vol] 10.0 mg/dL Normal 8.5-10.2 [facility] Comment on above: Order Comment: Speci men Type: BLOOD SPECIMENOrdering Facility: [facility] Address: [address] [place] [address] Performed By: #### 2 4321-2, , 2776-08 ####[facility] LABORATORYCLIA [id number] [place] [address] [place] Chloride [Moles/Vol] 100 mmol/L Normal 98-107 [facility] Comment on above: Order Comment: Speci men Type: BLOOD SPECIMENOrdering Facility: [facility] Address: [address] [place] [address] Performed By: #### 2 4321-2, , 2776-08 ####[facility]ORATORYCLIA [id number] [place] [address] [place] CO2 [Moles/Vol] 23 mmol/L Normal 22-30 [facility] Comment on above: Order Comment: Speci men Type: BLOOD SPECIMENOrdering Facility: [facility] Address: [address] [place] [address] Performed By: #### 2 4321-2, , 2776-08 ####[facility]ORATORYCLIA [id number] [place] [address] [place] Creatinine [Mass/Vol] 0.95 mg/dL Normal 0.58-0.96 [facility] Comment on above: Order Comment: Speci men Type: BLOOD SPECIMENOrdering Facility: [facility] Address: [address] [place] [address] Performed By: #### 2 4321-2, , 2776-08 ####[facility]ORATORYCLIA [id number] [address] [place] Creatinine and Glomerular filtration rate.predicted panel (S/P/Bld) 65 mL/min/1.73m??? Normal >=60 [facility] Comment on above: Order Comment: Prince omer Type: BLOOD SPECIMENOrdering Facility: [facility] Address: [address] [id number] Result Comment: Conchita mated Glomerular Filtration Rate [...] Performed By: #### 2 4321-2, , 2776-08 ####[facility]ORATORYCLIA [id number] [place] [id number] [place] Glucose [Mass/Vol] 146 mg/dL High 74-99 [facility] Comment on above: Order Comment: Prince omer Type: BLOOD SPECIMENOrdering Facility: [facility] Address: [address] [place] [address] Result Comment: The [place] (ADA) provides guidance for cutoff [...] Standards of Medical Care in Diabetes 2016, [employer]. Diabetes Care. 2016.39(Suppl 1). Performed By: #### 2 4321-2, , 2776-08 ####[facility]ORATORYCLIA [id number] [place] [id number] [place] Potassium [Moles/Vol] 3.8 mmol/L Normal 3.7-5.1 [facility] Comment on above: Order Comment: Prince omer Type: BLOOD SPECIMENOrdering Facility: [facility] Address: [address] [place] [address] Performed By: #### 2 4321-2, , 1 ####[facility]ORATORYCLIA [id number] [place] [id number] [place] Sodium [Moles/Vol] 134 mmol/L Low 136-144 [facility] Comment on above: Order Comment: Speci men Type: BLOOD SPECIMENOrdering Facility: [facility] Address: [address] [place] [address] Performed By: #### 2 4321-2, , 2776-08 ####[facility]ORATORYCLIA [id number] [place] [id number] [place] Urea nitrogen [Mass/Vol] 18 mg/dL Normal 7-21 [facility] Comment on above: Order Comment: Speci men Type: BLOOD SPECIMENOrdering Facility: [facility] Address: [address] [place] [address] Performed By: #### 2 4321-2, , 2776-08 ####[facility]ORATORYCLIA [id number] [address] [place] CBC panel Auto (Bld)on 09-27 Erythrocyte distribution width (RBC) [Ratio] 12.5 % Normal 11.5-15.0 [facility] Comment on above: Order Comment: Speci men Type: BLOOD SPECIMENOrdering Facility: [facility] Address: [address] [place] [address] Performed By: #### 5 8410-2 ####[facility]ORATORYCLIA [id number] [address] [place] Hematocrit (Bld) [Volume fraction] 48.6 % High 36.0-46.0 [facility] Comment on above: Order Comment: Speci men Type: BLOOD SPECIMENOrdering Facility: [facility] Address: [address] [place] [address] Performed By: #### 5 8410-2 ####[facility]ORATORYCLIA [id number] [address] [place] Hemoglobin (Bld) [Mass/Vol] 16.5 g/dL High 11.5-15.5 [facility] Comment on above: Order Comment: Speci men Type: BLOOD SPECIMENOrdering Facility: [facility] Address: [address] [place] [address] Performed By: #### 5 8410-2 ####[facility]ORATORYCLIA [id number] [address] STATES OF [facility] MCH (RBC) [Entitic mass] 30.8 pg Normal 26.0-34.0 [facility] Comment on above: Order Comment: Speci men Type: BLOOD SPECIMENOrdering Facility: [facility] Address: [address] [place] [address] Performed By: #### 5 8410-2 ####[facility]ATORYCLIA [id number] [address] STATES OF [facility] MCHC (RBC) [Mass/Vol] 34.0 g/dL Normal 30.5-36.0 [facility] Comment on above: Order Comment: Speci men Type: BLOOD SPECIMENOrdering Facility: [facility] Address: [address] [place] [address] Performed By: #### 5 8410-2 ####[facility]ORATORYCLIA [id number] [address] MCV (RBC) [Entitic vol] 90.7 fL Normal 80.0-100.0 [facility] Comment on above: Order Comment: Speci men Type: BLOOD SPECIMENOrdering Facility: [facility] Address: [address] [place] [address] Performed By: #### 5 8410-2 ####[facility]ORATORYCLIA [id number] [address] Nucleated RBC (Bld) [#/Vol] 10*3/uL Normal <0.01 [facility] Comment on above: Order Comment: Speci men Type: BLOOD SPECIMENOrdering Facility: [facility] Address: [address] [place] [address] Performed By: #### 5 8410-2 ####[facility]ORATORYCLIA [id number] [address] [place] Platelet mean volume (Bld) [Entitic vol] 9.7 fL Normal 9.0-12.7 [facility] Comment on above: Order Comment: Speci men Type: BLOOD SPECIMENOrdering Facility: [facility] Address: [address] [place] [address] Performed By: #### 5 8410-2 ####[facility]ORATORYCLIA [id number] [place] [address] [place] Platelets (Bld) [#/Vol] 305 10*3/uL Normal 150-400 [facility] Comment on above: Order Comment: Speci men Type: BLOOD SPECIMENOrdering Facility: [facility] Address: [address] [place] [address] Performed By: #### 5 8410-2 ####[facility]ORATORYCLIA [id number] [place] [address] [place] RBC (Bld) [#/Vol] 5.36 10*6/uL High 3.90-5.20 [facility] Comment on above: Order Comment: Speci men Type: BLOOD SPECIMENOrdering Facility: [facility] Address: [address] [place] [address] Performed By: #### 5 8410-2 ####[facility]ORATORYCLIA [id number] [address] [place] WBC (Bld) [#/Vol] 6.03 10*3/uL Normal 3.70-11.00 [facility] Comment on above: Order Comment: Speci men Type: BLOOD SPECIMENOrdering Facility: [facility] Address: [address] [place] [address] Performed By: #### 5 8410-2 ####[facility]ORATORYCLIA [id number] [address] [place] CONSULTon 09-27-2024 CONSULT Normal [facility] ECG COMPLETEon 09-27-2024 ECG COMPLETE Normal [facility] ECG COMPLETE Normal [facility] HIGH SENSITIVITY TROPONIN To n 09-27-2024 Troponin T.cardiac High sensitivity method [Mass/Vol] 8 ng/L Normal <12 [facility] Comment on above: Order Comment: Speci men Type: BLOOD SPECIMENOrdering Facility: [facility] Address: [address] [place] [address] Performed By: #### H STNT ####[facility]ORATORYCLIA [id number] [place] [address] [place] Magnesium SerPl-mCncon 09-27 Magnesium [Mass/Vol] 2.0 mg/dL Normal 1.7-2.3 [facility] Comment on above: Order Comment: Speci men Type: BLOOD SPECIMENOrdering Facility: [facility] Address: [address] [place] [address] Performed By: #### 2 4321-2, , 2776-08 ####[facility]ATORYCLIA [id number] [place] [address] [place] Phosphate SerPl-mCncon 09-27 Phosphate [Mass/Vol] 3.3 mg/dL Normal 2.7-4.8 [facility] Comment on above: Order Comment: Speci men Type: BLOOD SPECIMENOrdering Facility: [facility] Address: [address] [place] [address] Performed By: #### 2 4321-2, , 2776-08 ####[facility]ORATORYCLIA [id number] [place] [address] [place] XR CHEST 1V FRONTALon 2024 XR CHEST 1V FRONTAL Normal [facility] ECG COMPLETEon 09-26-2024 ECG COMPLETE Normal [facility] HIGH SENSITIVITY TROPONIN To n 09-26-2024 Troponin T.cardiac High sensitivity method [Mass/Vol] 7 ng/L Normal <12 [facility] Comment on above: Order Comment: Speci men Type: BLOOD SPECIMENOrdering Facility: [facility] Address: [address] [place] [address] Performed By: #### H STNT ####[facility]ATORYCLIA [id number] [place] [address] [place] Magnesium SerPl-mCncon 09-26 Magnesium [Mass/Vol] 2.1 mg/dL Normal 1.7-2.3 [facility] Comment on above: Order Comment: Speci men Type: BLOOD SPECIMENOrdering Facility: [facility] Address: [address] [place] [address] Performed By: #### 1 9123-9, 46652-4 ####[facility]ATORYCLIA [id number] [place] [address] [place] Renal function 2000 panelon 09-26-2024 Albumin [Mass/Vol] 4.0 g/dL Normal 3.9-4.9 [facility] Comment on above: Order Comment: Speci men Type: BLOOD SPECIMENOrdering Facility: [facility] Address: [address] [place] [address] Performed By: #### 1 9123-9, 58609-6 ####[facility]ATORYCLIA [id number] [place] [address] [place] Anion gap [Moles/Vol] 11 mmol/L Normal 8-15 [facility] Comment on above: Order Comment: Speci men Type: BLOOD SPECIMENOrdering Facility: [facility] Address: [address] [place] [address] Performed By: #### 1 9123-9, 37315-1 ####[facility]ATORYCLIA [id number] [place] [address] [place] Calcium [Mass/Vol] 9.3 mg/dL Normal 8.5-10.2 [facility] Comment on above: Order Comment: Speci men Type: BLOOD SPECIMENOrdering Facility: [facility] Address: [address] [place] [address] Performed By: #### 1 9123-9, 23416-3 ####[facility]ATORYCLIA [id number] [place] [address] [place] Chloride [Moles/Vol] 104 mmol/L Normal 98-107 [facility] Comment on above: Order Comment: Speci men Type: BLOOD SPECIMENOrdering Facility: [facility] Address: [address] [place] [address] Performed By: #### 1 9123-9, 91664-1 ####[facility]ATORYCLIA [id number] [address] OF [facility] CO2 [Moles/Vol] 22 mmol/L Normal 22-30 [facility] Comment on above: Order Comment: Speci men Type: BLOOD SPECIMENOrdering Facility: [facility] Address: [address] [place] [address] Performed By: #### 1 9123-9, 99612-4 ####[facility]ATORYCLIA [id number] [address] OF [facility] Creatinine [Mass/Vol] 0.85 mg/dL Normal 0.58-0.96 [facility] Comment on above: Order Comment: Speci men Type: BLOOD SPECIMENOrdering Facility: [facility] Address: [address] [place] [address] Performed By: #### 1 9123-9, 47010-4 ####[facility]ATORYCLIA [id number] [address] Creatinine and Glomerular filtration rate.predicted panel (S/P/Bld) 74 mL/min/1.73m??? Normal >=60 [facility] Comment on above: Order Comment: Speci men Type: BLOOD SPECIMENOrdering Facility: [facility] Address: [address] [place] [address] Result Comment: Conchita mated Glomerular Filtration Rate [...] actual GFR. Performed By: #### 1 9123-9, 37406-0 ####[facility]PITALCLIA [id number] [place] [address] [place] Glucose [Mass/Vol] 92 mg/dL Normal 74-99 [facility] Comment on above: Order Comment: Speci men Type: BLOOD SPECIMENOrdering Facility: [facility] Address: [address] [place] [address] Result Comment: The [employer] Diabetes [employer] (ADA) provides guidance for cutoff [...] Standards of Medical Care in Diabetes 2016, [employer]. Diabetes Care. 2016.39(Suppl 1). Performed By: #### 1 9123-9, 22679-5 ####[facility] HOSPITALSIA [id number] [place] [id number] [place] Phosphate [Mass/Vol] 3.7 mg/dL Normal 2.7-4.8 [facility] Comment on above: Order Comment: Speci men Type: BLOOD SPECIMENOrdering Facility: [facility] Address: [address] [place] [address] Performed By: #### 1 9123-9, 20270-9 ####[facility] HOSPITALSIA [id number] [place] [address] [place] Potassium [Moles/Vol] 4.1 mmol/L Normal 3.7-5.1 [facility] Comment on above: Order Comment: Speci men Type: BLOOD SPECIMENOrdering Facility: [facility] Address: [address] [place] [address] Performed By: #### 1 9123-9, 85692-7 ####[facility]ORATORYCLIA [id number] [address] [place] Sodium [Moles/Vol] 137 mmol/L Normal 136-144 [facility] Comment on above: Order Comment: Speci men Type: BLOOD SPECIMENOrdering Facility: [facility] Address: [address] [place] [address] Performed By: #### 1 9123-9, 23333-6 ####[facility]ORATORYCLIA [id number] [place] [address] [place] Urea nitrogen [Mass/Vol] 12 mg/dL Normal 7-21 [facility] Comment on above: Order Comment: Speci men Type: BLOOD SPECIMENOrdering Facility: [facility] Address: [address] [place] [address] Performed By: #### 1 9123-9, 28294-3 ####[facility]ORATORYCLIA [id number] [address] [place] XR CHEST 2V FRONTAL/LATon XR CHEST 2V FRONTAL/LAT Normal [facility] CASE MGT INIT ASSESon 2024 CASE MGT INIT ASSES Normal [facility] CBC panel Auto (Bld)on 09-25 Erythrocyte distribution width (RBC) [Ratio] 12.8 % Normal 11.5-15.0 [facility] Comment on above: Order Comment: Speci men Type: BLOOD SPECIMENOrdering Facility: [facility] Address: [address] [place] [address] Performed By: #### 5 8410-2 ####[facility]ORATORYCLIA [id number] [address] [place] Hematocrit (Bld) [Volume fraction] 41.9 % Normal 36.0-46.0 [facility] Comment on above: Order Comment: Speci men Type: BLOOD SPECIMENOrdering Facility: [facility] Address: [address] [place] [address] Performed By: #### 5 8410-2 ####[facility]ORATORYCLIA [id number] [place] [address] [place] Hemoglobin (Bld) [Mass/Vol] 14.4 g/dL Normal 11.5-15.5 [facility] Comment on above: Order Comment: Speci men Type: BLOOD SPECIMENOrdering Facility: [facility] Address: [address] [place] [address] Performed By: #### 5 8410-2 ####[facility]ORATORYCLIA [id number] [address] STATES OF [facility] MCH (RBC) [Entitic mass] 31.9 pg Normal 26.0-34.0 [facility] Comment on above: Order Comment: Speci men Type: BLOOD SPECIMENOrdering Facility: [facility] Address: [address] [place] [address] Performed By: #### 5 8410-2 ####[facility]ORATORYCLIA [id number] [address] [place] MCHC (RBC) [Mass/Vol] 34.4 g/dL Normal 30.5-36.0 [facility] Comment on above: Order Comment: Speci men Type: BLOOD SPECIMENOrdering Facility: [facility] Address: [address] [place] [address] Performed By: #### 5 8410-2 ####[facility]ORATORYCLIA [id number] [address] STATES OF [facility] MCV (RBC) [Entitic vol] 92.9 fL Normal 80.0-100.0 [facility] Comment on above: Order Comment: Speci men Type: BLOOD SPECIMENOrdering Facility: [facility] Address: [address] [place] [address] Performed By: #### 5 8410-2 ####[facility]ORATORYCLIA [id number] [address] Nucleated RBC (Bld) [#/Vol] 10*3/uL Normal <0.01 [facility] Comment on above: Order Comment: Speci men Type: BLOOD SPECIMENOrdering Facility: [facility] Address: [address] [place] [address] Performed By: #### 5 8410-2 ####[facility]ORATORYCLIA [id number] [place] [address] [place] Platelet mean volume (Bld) [Entitic vol] 9.8 fL Normal 9.0-12.7 [facility] Comment on above: Order Comment: Speci men Type: BLOOD SPECIMENOrdering Facility: [facility] Address: [address] [place] [address] Performed By: #### 5 8410-2 ####[facility]ORATORYCLIA [id number] [place] [address] [place] Platelets (Bld) [#/Vol] 257 10*3/uL Normal 150-400 [facility] Comment on above: Order Comment: Speci men Type: BLOOD SPECIMENOrdering Facility: [facility] Address: [address] [place] [address] Performed By: #### 5 8410-2 ####[facility]ORATORYCLIA [id number] [place] [address] [place] RBC (Bld) [#/Vol] 4.51 10*6/uL Normal 3.90-5.20 [facility] Comment on above: Order Comment: Speci men Type: BLOOD SPECIMENOrdering Facility: [facility] Address: [address] [place] [address] Performed By: #### 5 8410-2 ####[facility]ORATORYCLIA [id number] [place] [address] [place] WBC (Bld) [#/Vol] 5.53 10*3/uL Normal 3.70-11.00 [facility] Comment on above: Order Comment: Speci men Type: BLOOD SPECIMENOrdering Facility: [facility] Address: [address] [place] [address] Performed By: #### 5 8410-2 ####[facility]ORATORYCLIA [id number] [address] [place] CONSULT PROGon 09-25-2024 CONSULT PROG Normal [facility] CRP SerPl-mCncon 09-25-2024 CRP [Mass/Vol] 0.5 mg/dL Normal <0.9 [facility] Comment on above: Order Comment: Speci men Type: BLOOD SPECIMENOrdering Facility: [facility] Address: [address] [place] [address] Performed By: #### 1 988-5, 37188-1, 51918-8, 3016-3 ####[facility]ORATORYCLIA [id number] [place] [address] [place] ECG COMPLETEon 09-25-2024 ECG COMPLETE Normal [facility] ECHO WITH AGITATED SALINE CO NTRASTon 09-25-2024 ECHO WITH AGITATED SALINE CONTRAST Normal [facility] ESR Westergren method (Bld) [Velocity]on 09-25-2024 ESR (Bld) [Velocity] 8 mm/h Normal 0-20 [facility] Comment on above: Order Comment: Speci men Type: BLOOD SPECIMENOrdering Facility: [facility] Address: [address] [place] [address] Performed By: #### 4 537-7 ####[facility] LABCLIA [id number] [facility] [id number] [place] [address] [place] HIGH SENSITIVITY TROPONIN To n 09-25-2024 Troponin T.cardiac High sensitivity method [Mass/Vol] 9 ng/L Normal <12 [facility] Comment on above: Order Comment: Speci men Type: BLOOD SPECIMENOrdering Facility: [facility] Address: [address] [place] [address] Performed By: #### H STNT ####[facility]ORATORYCLIA [id number] [place] [id number] [place] Magnesium SerPl-mCncon 09-25 Magnesium [Mass/Vol] 2.2 mg/dL Normal 1.7-2.3 [facility] Comment on above: Order Comment: Speci men Type: BLOOD SPECIMENOrdering Facility: [facility] Address: [address] [place] [address] Performed By: #### 1 988-5, 40907-1, 91288-2, 6-3 ####[facility]ORATORYCLIA [id number] [place] [address] [place] NURSING PROGon 09-25-2024 NURSING PROG Normal [facility] Renal function 2000 panelon 09-25-2024 Albumin [Mass/Vol] 4.1 g/dL Normal 3.9-4.9 [facility] Comment on above: Order Comment: Speci men Type: BLOOD SPECIMENOrdering Facility: [facility] Address: [address] [place] [address] Performed By: #### 1 988-5, 88635-1, 76244-5, 6-3 ####[facility]ORATORYCLIA [id number] [address] [place] Anion gap [Moles/Vol] 11 mmol/L Normal 8-15 [facility] Comment on above: Order Comment: Speci men Type: BLOOD SPECIMENOrdering Facility: [facility] Address: [address] [place] [address] Performed By: #### 1 988-5, 67803-0, 60938-0, 6-3 ####[facility]ORATORYCLIA [id number] [place] [address] [place] Calcium [Mass/Vol] 9.4 mg/dL Normal 8.5-10.2 [facility] Comment on above: Order Comment: Speci men Type: BLOOD SPECIMENOrdering Facility: [facility] Address: [address] [place] [address] Performed By: #### 1 988-5, 61906-0, 93376-2, 3016-3 ####[facility]ORATORYCLIA [id number] [place] [id number] [place] Chloride [Moles/Vol] 107 mmol/L Normal 98-107 [facility] Comment on above: Order Comment: Speci men Type: BLOOD SPECIMENOrdering Facility: [facility] Address: [address] [place] [address] Performed By: #### 1 988-5, 30195-5, 88324-5, 6-3 ####[facility]PITALCLIA [id number] [place] [address] [place] CO2 [Moles/Vol] 23 mmol/L Normal 22-30 [facility] Comment on above: Order Comment: Speci men Type: BLOOD SPECIMENOrdering Facility: [facility] Address: [address] [place] [address] Performed By: #### 1 988-5, , 59861-8, 6-3 ####[facility]ITALCLIA [id number] [place] [address] [place] Creatinine [Mass/Vol] 0.79 mg/dL Normal 0.58-0.96 [facility] Comment on above: Order Comment: Speci men Type: BLOOD SPECIMENOrdering Facility: [facility] Address: [address] [place] [address] Performed By: #### 1 988-5, , 91754-5, 6-3 ####[facility] HOSPITALSIA [id number] [place] [id number] [place] [facility] Creatinine and Glomerular filtration rate.predicted panel (S/P/Bld) 81 mL/min/1.73m??? Normal >=60 [facility] Comment on above: Order Comment: Speci [facility] Type: BLOOD SPECIMENOrdering Facility: [facility] Address: [address] [place] [address] Result Comment: Conchita mated Glomerular Filtration Rate [...] actual GFR. Performed By: #### 1 988-5, 36812-2, 58087-1, 3016-3 ####[facility]ORATORYCLIA [id number] [place] [address] [place] Glucose [Mass/Vol] 94 mg/dL Normal 74-99 [facility] Comment on above: Order Comment: Speclizett omer Type: BLOOD SPECIMENOrdering Facility: [facility] Address: [address] [place] [address] Result Comment: The [place] Diabetes Association (ADA) provides guidance for cutoff [...] Standards of Medical Care in Diabetes 2016, [employer]. Diabetes Care. 2016.39(Suppl 1). Performed By: #### 1 988-5, 21413-7, 96406-2, 3016-3 ####[facility]ORATORYCLIA [id number] [place] [address] [place] Phosphate [Mass/Vol] 3.3 mg/dL Normal 2.7-4.8 [facility] Comment on above: Order Comment: Prince omer Type: BLOOD SPECIMENOrdering Facility: [facility] Address: [address] [place] [address] Performed By: #### 1 988-5, 83468-0, 60066-6, 3016-3 ####[facility]ATORYCLIA [id number] [place] [address] [place] Potassium [Moles/Vol] 3.8 mmol/L Normal 3.7-5.1 [facility] Comment on above: Order Comment: Prince omer Type: BLOOD SPECIMENOrdering Facility: [facility] Address: [address] [place] [address] Performed By: #### 1 988-5, 93093-7, 71280-8, 3016-3 ####[facility]ORATORYCLIA [id number] [place] [address] Sodium [Moles/Vol] 141 mmol/L Normal 136-144 [facility] Comment on above: Order Comment: Speci men Type: BLOOD SPECIMENOrdering Facility: [facility] Address: [address] [place] [address] Performed By: #### 1 988-5, 87771-8, 15228-7, 3016-3 ####[facility]ATORYCLIA [id number] [address] STATES [facility] Urea nitrogen [Mass/Vol] 13 mg/dL Normal 7-21 [facility] Comment on above: Order Comment: Speci men Type: BLOOD SPECIMENOrdering Facility: [facility] Address: [address] [place] [address] Performed By: #### 1 988-5, 16609-3, 13994-0, 3016-3 ####[facility]ATORYCLIA [id number] [address] TSH SerPl-aCncon 09-25-2024 TSH Qn 2.230 m[IU]/L Normal 0.270-4.200 [facility] Comment on above: Order Comment: Speci men Type: BLOOD SPECIMENOrdering Facility: [facility] Address: [address] [place] [address] Performed By: #### 1 988-5, 05101-3, 99521-6, 3016-3 ####[facility]ATORYCLIA [id number] [place] [address] [place] aPTT PPPon 09-25-2024 aPTT Coag (PPP) [Time] 58.2 s High 23.0-32.4 [facility] Comment on above: Order Comment: Speci men Type: BLOOD SPECIMENOrdering Facility: [facility] Address: [address] [place] [address] Performed By: #### 1 4979-9 ####[facility]ORATORYCLIA [id number] [place] [id number] [facility] aPTT Coag (PPP) [Time] 63.4 s High 23.0-32.4 [facility] Comment on above: Order Comment: Speci men Type: BLOOD SPECIMENOrdering Facility: [facility] Address: [address] [place] [address] Performed By: #### 1 4979-9 ####[facility]ORATORYCLIA [id number] [address] [place] CBC panel Auto (Bld)on 09-24 Erythrocyte distribution width (RBC) [Ratio] 12.5 % Normal 11.5-15.0 [facility] Comment on above: Order Comment: Speci men Type: BLOOD SPECIMENOrdering Facility: [facility] Address: [address] [place] [address] Performed By: #### 5 8410-2 ####[facility]ATORYCLIA [id number] [address] STATES [facility] Hematocrit (Bld) [Volume fraction] 40.1 % Normal 36.0-46.0 [facility] Comment on above: Order Comment: Speci men Type: BLOOD SPECIMENOrdering Facility: [facility] Address: [address] [place] [address] Performed By: #### 5 8410-2 ####[facility]ATORYCLIA [id number] [address] [place] Hemoglobin (Bld) [Mass/Vol] 13.6 g/dL Normal 11.5-15.5 [facility] Comment on above: Order Comment: Speci men Type: BLOOD SPECIMENOrdering Facility: [facility] Address: [address] [place] [address] Performed By: #### 5 8410-2 ####[facility]ATORYCLIA [id number] [address] [place] MCH (RBC) [Entitic mass] 31.6 pg Normal 26.0-34.0 [facility] Comment on above: Order Comment: Speci men Type: BLOOD SPECIMENOrdering Facility: [facility] Address: [address] [place] [address] Performed By: #### 5 8410-2 ####[facility]ATORYCLIA [id number] [address] [place] [facility] MCHC (RBC) [Mass/Vol] 33.9 g/dL Normal 30.5-36.0 [facility] Comment on above: Order Comment: Speci men Type: BLOOD SPECIMENOrdering Facility: [facility] Address: [address] [place] [address] Performed By: #### 5 8410-2 ####[facility]ATORYCLIA [id number] [address] [place] MCV (RBC) [Entitic vol] 93.0 fL Normal 80.0-100.0 [facility] Comment on above: Order Comment: Speci men Type: BLOOD SPECIMENOrdering Facility: [facility] Address: [address] [place] [address] Performed By: #### 5 8410-2 ####[facility]ORATORYCLIA [id number] [address] Nucleated RBC (Bld) [#/Vol] 10*3/uL Normal <0.01 [facility] Comment on above: Order Comment: Speci men Type: BLOOD SPECIMENOrdering Facility: [facility] Address: [address] [place] [address] Performed By: #### 5 8410-2 ####[facility]ATORYCLIA [id number] [address] [place] Platelet mean volume (Bld) [Entitic vol] 9.5 fL Normal 9.0-12.7 [facility] Comment on above: Order Comment: Speci men Type: BLOOD SPECIMENOrdering Facility: [facility] Address: [address] [place] [address] Performed By: #### 5 8410-2 ####[facility]ATORYCLIA [id number] [address] [place] Platelets (Bld) [#/Vol] 249 10*3/uL Normal 150-400 [facility] Comment on above: Order Comment: Speci men Type: BLOOD SPECIMENOrdering Facility: [facility] Address: [address] [place] [address] Performed By: #### 5 8410-2 ####[facility]ATORYCLIA [id number] [address] RBC (Bld) [#/Vol] 4.31 10*6/uL Normal 3.90-5.20 [facility] Comment on above: Order Comment: Speci men Type: BLOOD SPECIMENOrdering Facility: [facility] Address: [address] [place] [address] Performed By: #### 5 8410-2 ####[facility]ATORYCLIA [id number] [address] [place] WBC (Bld) [#/Vol] 6.52 10*3/uL Normal 3.70-11.00 [facility] Comment on above: Order Comment: Speci men Type: BLOOD SPECIMENOrdering Facility: [facility] Address: [address] [place] [address] Performed By: #### 5 8410-2 ####[facility]ATORYCLIA [id number] [address] Erythrocyte distribution width (RBC) [Ratio] 12.3 % Normal 11.5-15.0 [facility] Comment on above: Order Comment: Speci men Type: BLOOD SPECIMENOrdering Facility: [facility] Address: [address] [place] [address] Performed By: #### 5 8410-2 ####[facility] LABCLIA [id number] [place], [place] [id number] [place] [address] Hematocrit (Bld) [Volume fraction] 45.0 % Normal 36.0-46.0 [facility] Comment on above: Order Comment: Speci men Type: BLOOD SPECIMENOrdering Facility: [facility] Address: [address] [place] [address] Performed By: #### 5 8410-2 ####[facility] LABCLIA [id number] [place] [address] [facility] Hemoglobin (Bld) [Mass/Vol] 14.8 g/dL Normal 11.5-15.5 [facility] Comment on above: Order Comment: Speci men Type: BLOOD SPECIMENOrdering Facility: [facility] Address: [address] [place] [address] Performed By: #### 5 8410-2 ####[facility] LABCLIA [id number] [place] [address] [place] MCH (RBC) [Entitic mass] 30.5 pg Normal 26.0-34.0 [facility] Comment on above: Order Comment: Speci men Type: BLOOD SPECIMENOrdering Facility: [facility] Address: [address] [place] [address] Performed By: #### 5 8410-2 ####[facility] LABCLIA [id number] [address] MCHC (RBC) [Mass/Vol] 32.9 g/dL Normal 30.5-36.0 [facility] Comment on above: Order Comment: Speci men Type: BLOOD SPECIMENOrdering Facility: [facility] Address: [address] [place] [address] Performed By: #### 5 8410-2 ####[facility] LABCLIA [id number] [place] [address] [place] MCV (RBC) [Entitic vol] 92.6 fL Normal 80.0-100.0 [facility] Comment on above: Order Comment: Speci men Type: BLOOD SPECIMENOrdering Facility: [facility] Address: [address] [place] [address] Performed By: #### 5 8410-2 ####[facility] LABCLIA [id number] [address] Platelet mean volume (Bld) [Entitic vol] 9.4 fL Normal 9.0-12.7 [facility] Comment on above: Order Comment: Speci men Type: BLOOD SPECIMENOrdering Facility: [facility] Address: [address] [place] [address] Performed By: #### 5 8410-2 ####[facility] LABCLIA [id number] [place] [address] [facility] Platelets (Bld) [#/Vol] 294 10*3/uL Normal 150-400 [facility] Comment on above: Order Comment: Speci men Type: BLOOD SPECIMENOrdering Facility: [facility] Address: [address] [place] [address] Performed By: #### 5 8410-2 ####[facility] LABCLIA [id number] [facility] [place] [address] [facility] [place] RBC (Bld) [#/Vol] 4.86 10*6/uL Normal 3.90-5.20 [facility] Comment on above: Order Comment: Speci men Type: BLOOD SPECIMENOrdering Facility: [facility] Address: [address] [place] [address] Performed By: #### 5 8410-2 ####[facility] LABCLIA [id number] [place] [address] [place] WBC (Bld) [#/Vol] 8.41 10*3/uL Normal 3.70-11.00 [facility] Comment on above: Order Comment: Speci men Type: BLOOD SPECIMENOrdering Facility: [facility] Address: [address] [place] [address] Performed By: #### 5 8410-2 ####[facility] LABCLIA [id number] [place] [address] [facility] [place] ECG COMPLETEon 09-24-2024 ECG COMPLETE Normal [facility] ECG COMPLETE Normal [facility] ED NOTEon 09-24-2024 ED NOTE HNO ID: [id number] Author: DEVANTE HERNANDEZ, RN Service: Emergency Medicine Author Type: Registered Nurse Type: ED Notes Filed: 09/24/2024 20:29 Note Text: [facility] present at bedside. Report given to transfer team. Normal [facility] ED NOTE HNO ID: [id number] Author: DEVANTE HERNANDEZ RN Service: Emergency Medicine Author Type: Registered Nurse Type: ED Notes Filed: 09/24/2024 19:24 Note Text: Change of shift report received from Rio Rocha RN. I assumed patient care at this time. Normal [facility] ED NOTE Normal [facility] ED NOTE HNO ID: [id number] Author: RIO CARRANZA RN Service: ? Author Type: Registered Nurse Type: ED Notes Filed: 09/24/2024 19:08 Note Text: Report to aruna hernandez rn. [facility] ED NOTE HNO ID: [id number] Author: RIO CARRANZA RN Service: ? Author Type: Registered Nurse Type: ED Notes Filed: 09/24/2024 19:01 Note Text: Attempted to call report to [facility], nurses are in report at this time and unable to take report on pt [facility] ED NOTE HNO ID: [id number] Author: RIO CARRANZA RN Service: ? Author Type: Registered Nurse Type: ED Notes Filed: 09/24/2024 18:47 Note Text: Meal tray delivered to pt [facility] ED NOTE HNO ID: [id number] Author: RIO CARRANZA RN Service: ? Author Type: Registered Nurse Type: ED Notes Filed: 09/24/2024 18:35 Note Text: Meal tray ordered for pt [facility] ED NOTE HNO ID: [id number] Author: RIO CARRANZA RN Service: ? Author Type: Registered Nurse Type: ED Notes Filed: 09/24/2024 17:42 Note Text: Pt states pain is better, but is still having chest pressure [facility] ED NOTE [facility] ED NOTE HNO ID: [id number] Author: ?, ?, ? Service: Emergency Medicine Author Type: ? Type: ED Notes Filed: 09/24/2024 17:11 Note Text: Pt states that her pain has not improved after the first nitro was given [facility] ED NOTE HNO ID: [id number] Author: ?, ?, ? Service: Emergency Medicine Author Type: ? Type: ED Notes Filed: 09/24/2024 17:11 Note Text: Patient states her pain is a 4/10. She states that it feels like a pressure in her chest. First nitro given [facility] ED NOTE HNO ID: [id number] Author: ?, ?, ? Service: Emergency Medicine Author Type: ? Type: ED Notes Filed: 09/24/2024 17:03 Note Text: Dr. Almodovar at bedside [facility] ED NOTE HNO ID: [id number] Author: ?, ?, ? Service: Emergency Medicine Author Type: ? Type: ED Notes Filed: 09/24/2024 16:52 Note Text: Pt complains a 4/[address] Almodovar made aware. EKG ordered. [facility] ED NOTE HNO ID: [id number] Author: RIO CARRANZA RN Service: ? Author Type: Registered Nurse Type: ED Notes Filed: 09/24/2024 14:05 Note Text: Per dr almodovar ptt was redrawn [facility] ED NOTE HNO ID: [id number] Author: RIO CARRANZA RN Service: ? Author Type: Registered Nurse Type: ED Notes Filed: 09/24/2024 12:18 Note Text: Meal tray ordered for pt [facility] ED NOTE HNO ID: [id number] Author: RIO CARRANZA RN Service: ? Author Type: Registered Nurse Type: ED Notes Filed: 09/24/2024 07:34 Note Text: Received report from mikala gutierres rn. Pt resting in bed at this time, breakfast tray given to pt. [facility] ED NOTE HNO ID: [id number] Author: RIO ALMEIDA RN Service: Emergency Medicine Author Type: Registered Nurse Type: ED Notes Filed: 09/24/2024 06:13 Note Text: Patient up to bsc. CP gone. Patient states she feels better. [facility] ED NOTE HNO ID: [id number] Author: RIO ALMEIDA RN Service: Emergency Medicine Author Type: Registered Nurse Type: ED Notes Filed: 09/24/2024 00:55 Note Text: Patient converted to NSR with rate of 99 Normal [facility] ED NOTE HNO ID: [id number] Author: RIO ALMEIDA RN Service: Emergency Medicine Author Type: Registered Nurse Type: ED Notes Filed: 09/24/2024 00:52 Note Text: Patient cardioverted at 200 joules Normal [facility] ED NOTE HNO ID: [id number] Author: RIO ALMEIDA RN Service: Emergency Medicine Author Type: Registered Nurse Type: ED Notes Filed: 09/24/2024 00:45 Note Text: Consent form signed for cardioversion. Respiratory at bedside. Normal [facility] ED PROV NOTEon 09-24-2024 ED PROV NOTE Normal [facility] HIGH SENSITIVITY TROPONIN To n 09-24-2024 Troponin T.cardiac High sensitivity method [Mass/Vol] 12 ng/L High <12 [facility] Comment on above: Order Comment: Prince omer Type: BLOOD SPECIMENOrdering Facility: [facility] Address: [address] [place] [address] Performed By: #### H STNT ####[facility] LABCLIA [id number] [address] Troponin T.cardiac High sensitivity method [Mass/Vol] 19 ng/L High <12 [facility] Comment on above: Order Comment: Prince omer Type: BLOOD SPECIMENOrdering Facility: [facility] Address: [address] [place] [address] Performed By: #### H STNT ####[facility] LABCLIA [id number] [place] [address] [facility] HISTORY PHYSICALon HISTORY PHYSICAL Normal [facility] PT panel Coag (PPP)on 2024 INR Coag (PPP) [Relative time] 1.0 {INR} Normal 0.9-1.3 [facility] Comment on above: Order Comment: Prince omer Type: BLOOD SPECIMENOrdering Facility: [facility] Address: [address] [place] [address] Result Comment: [place] min K Antagonist (VKA) Therapeutic Range: INR 2 to 3 (Target INR of 2.5)Note: For patients treated with VKA drugs, such as warfarin, the [place] 2012 Guideline recommends [...] al. Chest 2012, 141:7S-47SNishsharonda RA, et al. [facility] 2017, 70: 252-289 Performed By: #### 3 4528-0, 33307-7 ####[facility]ATORYCLIA [id number] [address] [place] [facility] PT Coag (PPP) [Time] 11.0 s Normal 9.7-13.0 [facility] Comment on above: Order Comment: Prince omer Type: BLOOD SPECIMENOrdering Facility: [facility] Address: [address] [place] [address] Performed By: #### 3 4528-0, 70268-4 ####[facility]ORATORYCLIA [id number] [address] OF [facility] INR Coag (PPP) [Relative time] 1.0 {INR} Normal 0.9-1.3 [facility] Comment on above: Order Comment: Prince omer Type: BLOOD SPECIMENOrdering Facility: [facility] Address: [address] [place] [address] Result Comment: [place] min K Antagonist (VKA) Therapeutic Range: INR 2 to 3 (Target INR of 2.5)Note: For patients treated with VKA drugs, such as warfarin, the [employer] 2012 Guideline recommends [...] al. Chest 2012, 141:7S-47SNishimura RA, et al. [facility] 2017, 70: 252-289 Performed By: #### 1 4979-9, 08934-3 ####[facility] [id number] [place] [address] [place] [facility] PT Coag (PPP) [Time] 10.5 s Normal <13.1 [facility] Comment on above: Order Comment: Prince omer Type: BLOOD SPECIMENOrdering Facility: [facility] Address: [address] [place] [address] Performed By: #### 1 4979-9, 28528-8 ####[facility]ISQBuy [id number] [place] [address] [facility] INR Coag (PPP) [Relative time] 1.0 {INR} Normal 0.9-1.3 [facility] Comment on above: Order Comment: Prince omer Type: BLOOD SPECIMENOrdering Facility: [facility] Address: [address] [place] [address] Result Comment: [place] min K Antagonist (VKA) Therapeutic Range: INR 2 to 3 (Target INR of 2.5)Note: For patients treated with VKA drugs, such as warfarin, the [employer] 2012 Guideline recommends [...] al. Chest 2012, 141:7S-47SNishimura RA, et al. [facility] 2017, 70: 252-289 Performed By: #### 3 4528-0, 50239-7 ####[facility] LABCLIA [id number] [place] [address] [place] [facility] PT Coag (PPP) [Time] 10.5 s Normal <13.1 [facility] Comment on above: Order Comment: Speci men Type: BLOOD SPECIMENOrdering Facility: [facility] Address: [address] [place] [address] Performed By: #### 3 4528-0, 02878-1 ####[facility] LABCLIA [id number] [place] [address] [place] aPTT PPPon 09-24-2024 aPTT Coag (PPP) [Time] 36.1 s High 23.0-32.4 [facility] Comment on above: Order Comment: Prince omer Type: BLOOD SPECIMENOrdering Facility: [facility] Address: [address] [place] [address] Performed By: #### 3 4528-0, 49961-1 ####[facility] LABORATORYCLIA [id number] [place] [address] [place] [facility] aPTT Coag (PPP) [Time] 39.8 s High 23.0-32.4 [facility] Comment on above: Order Comment: Speci men Type: BLOOD SPECIMENOrdering Facility: [facility] Address: [address] [place] [address] Performed By: #### 1 4979-9 ####[facility] LABCLIA [id number] [place] [address] [place] [facility] aPTT Coag (PPP) [Time] 27.6 s Normal 23.0-32.4 [facility] Comment on above: Order Comment: Speci men Type: BLOOD SPECIMENOrdering Facility: [facility] Address: [address] [place] [address] Performed By: #### 1 4979-9 ####[facility] LABCLIA [id number] [place] [address] [place] [facility] aPTT Coag (PPP) [Time] 93.7 s High 23.0-32.4 [facility] Comment on above: Order Comment: Speci men Type: BLOOD SPECIMENOrdering Facility: [facility] Address: [address] [place], [place] [address] Performed By: #### 1 4979-9, 29160-1 ####[facility] LABCLIA [id number] [place] [address] [facility] aPTT Coag (PPP) [Time] 23.6 s Normal 23.0-32.4 [facility] Comment on above: Order Comment: Speci men Type: BLOOD SPECIMENOrdering Facility: [facility] Address: [address] [place], [place] [address] Performed By: #### 3 4528-0, 56518-4 ####[facility] LABCLIA [id number] [place] [address] [facility] ALK Phos Isoenzymeon 025 ALK PHOS, S 164 IU/L High 44-121 [facility] Comment on above: Order Comment: PLEAS E ADD TO BLOOD IN THE LAB. THANK YOU!! Performed By: #### L 3250.0100 #### [facility] [address] [place], [address] BONE FRACTION 49 Normal 14-68 [facility] Comment on above: Order Comment: PLEAS E ADD TO BLOOD IN THE LAB. THANK YOU!! Performed By: #### L 3250.0100 #### [facility] [address] [place], [address] INTESTINAL FRAC 8 Normal 0-18 [facility] Comment on above: Order Comment: PLEAS E ADD TO BLOOD IN THE LAB. THANK YOU!! Result Comment: Perf ormed at: - [facility] [address] [id number] Customs Examiner: Aj Lopez PhD, Phone: [phone] Performed By: #### L 3250.0100 #### [facility] [address] [place], [place], [id number] LIVER FRACTION 43 Normal 18-85 [facility] Comment on above: Order Comment: PLEAS E ADD TO BLOOD IN THE LAB. THANK YOU!! Performed By: #### L 3250.0100 #### [facility] [address] [place], [place], [id number] CBC W Auto Differential pane l (Bld)on 09-23-2024 Basophils (Bld) [#/Vol] 0.06 10*3/uL Normal <0.11 [facility] Comment on above: Order Comment: Speci men Type: BLOOD SPECIMENOrdering Facility: [facility] Address: [address] [place] [address] Performed By: #### 5 7021-8 ####[facility] LABCLIA [id number] [place] [address] [place] Basophils/100 WBC (Bld) 0.8 % Normal [facility] Comment on above: Order Comment: Speci men Type: BLOOD SPECIMENOrdering Facility: [facility] Address: [address] [place] [address] Performed By: #### 5 7021-8 ####[facility] LABCLIA [id number] [place] [address] [place] Differential cell count method Nom (Bld) Auto Normal [facility] Comment on above: Order Comment: Speci men Type: BLOOD SPECIMENOrdering Facility: [facility] Address: [facility] [place] [address] Performed By: #### 5 7021-8 ####[facility] LABCLIA [id number] [place] [address] [place] Eosinophils (Bld) [#/Vol] 0.31 10*3/uL Normal <0.46 [facility] Comment on above: Order Comment: Speci men Type: BLOOD SPECIMENOrdering Facility: [facility] Address: [address] [place] [address] Performed By: #### 5 7021-8 ####[facility] LABCLIA [id number] [facility] [place] [address] [place] Eosinophils/100 WBC (Bld) 3.9 % Normal [facility] Comment on above: Order Comment: Speci men Type: BLOOD SPECIMENOrdering Facility: [facility] Address: [address] [place] [address] Performed By: #### 5 7021-8 ####[facility] LABCLIA [id number] [place] [address] [place] Erythrocyte distribution width (RBC) [Ratio] 12.4 % Normal 11.5-15.0 [facility] Comment on above: Order Comment: Speci men Type: BLOOD SPECIMENOrdering Facility: [facility] Address: [address] [place] [address] Performed By: #### 5 7021-8 ####[facility] LABCLIA [id number] [place] [address] [place] Hematocrit (Bld) [Volume fraction] 48.1 % High 36.0-46.0 [facility] Comment on above: Order Comment: Speci men Type: BLOOD SPECIMENOrdering Facility: [facility] Address: [address] [place] [address] Performed By: #### 5 7021-8 ####[facility] LABCLIA [id number] [place] [address] [place] Hemoglobin (Bld) [Mass/Vol] 15.7 g/dL High 11.5-15.5 [facility] Comment on above: Order Comment: Speci men Type: BLOOD SPECIMENOrdering Facility: [facility] Address: [address] [place] [address] Performed By: #### 5 7021-8 ####[facility] LABCLIA [id number] [facility] [place] [address] [place] Immature granulocytes (Bld) [#/Vol] 10*3/uL Normal <0.10 [facility] Comment on above: Order Comment: Speci men Type: BLOOD SPECIMENOrdering Facility: [facility] Address: [address] [place] [address] Performed By: #### 5 7021-8 ####[facility] LABCLIA [id number] [place] [address] [place] Immature granulocytes/100 WBC (Bld) 0.1 % Normal [facility] Comment on above: Order Comment: Speci men Type: BLOOD SPECIMENOrdering Facility: [facility] Address: [address] [place] [address] Performed By: #### 5 7021-8 ####[facility] LABCLIA [id number] [place] [address] [place] Lymphocytes (Bld) [#/Vol] 2.65 10*3/uL Normal 1.00-4.00 [facility] Comment on above: Order Comment: Speci men Type: BLOOD SPECIMENOrdering Facility: [facility] Address: [address] [place] [address] Performed By: #### 5 7021-8 ####[facility] LABCLIA [id number] [place] [address] [place] Lymphocytes/100 WBC (Bld) 33.2 % Normal [facility] Comment on above: Order Comment: Speci men Type: BLOOD SPECIMENOrdering Facility: [facility] Address: [address] [place] [address] Performed By: #### 5 7021-8 ####[facility] LABCLIA [id number] [place] [address] [place] MCH (RBC) [Entitic mass] 30.5 pg Normal 26.0-34.0 [facility] Comment on above: Order Comment: Speci men Type: BLOOD SPECIMENOrdering Facility: [facility] Address: [address] [place] [address] Performed By: #### 5 7021-8 ####[facility] LABCLIA [id number] [place] [address] [place] MCHC (RBC) [Mass/Vol] 32.6 g/dL Normal 30.5-36.0 [facility] Comment on above: Order Comment: Speci men Type: BLOOD SPECIMENOrdering Facility: [facility] Address: [address] [place] [address] Performed By: #### 5 7021-8 ####[facility] LABCLIA [id number] [place], [place] [id number] [place] [address] [place] MCV (RBC) [Entitic vol] 93.4 fL Normal 80.0-100.0 [facility] Comment on above: Order Comment: Speci men Type: BLOOD SPECIMENOrdering Facility: [facility] Address: [address] [place] [address] Performed By: #### 5 7021-8 ####[facility] LABCLIA [id number] [address] [place] Monocytes (Bld) [#/Vol] 0.73 10*3/uL Normal <0.87 [facility] Comment on above: Order Comment: Speci men Type: BLOOD SPECIMENOrdering Facility: [facility] Address: [address] [place] [address] Performed By: #### 5 7021-8 ####[facility] LABCLIA [id number] [place] [address] [facility] Monocytes/100 WBC (Bld) 9.2 % Normal [facility] Comment on above: Order Comment: Speci men Type: BLOOD SPECIMENOrdering Facility: [facility] Address: [address] [place] [address] Performed By: #### 5 7021-8 ####[facility] LABCLIA [id number] [place] [address] [place] Neutrophils (Bld) [#/Vol] 4.21 10*3/uL Normal 1.45-7.50 [facility] Comment on above: Order Comment: Speci men Type: BLOOD SPECIMENOrdering Facility: [facility] Address: [address] [place] [address] Performed By: #### 5 7021-8 ####[facility] LABCLIA [id number] [place] [address] [place] Neutrophils/100 WBC (Bld) 52.8 % Normal [facility] Comment on above: Order Comment: Speci men Type: BLOOD SPECIMENOrdering Facility: [facility] Address: [address] [place] [address] Performed By: #### 5 7021-8 ####[facility] LABCLIA [id number] [facility] [place] [address] [place] Nucleated RBC (Bld) [#/Vol] Normal [facility] Comment on above: Order Comment: Speci men Type: BLOOD SPECIMENOrdering Facility: [facility] Address: [address] [place] [address] Performed By: #### 5 7021-8 ####[facility] LABCLIA [id number] [place] [address] [place] Nucleated RBC/100 WBC (Bld) [Ratio] Normal [facility] Comment on above: Order Comment: Speci men Type: BLOOD SPECIMENOrdering Facility: [facility] Address: [address] [place] [address] Performed By: #### 5 7021-8 ####[facility] LABCLIA [id number] [facility] [address] [place] Platelet mean volume (Bld) [Entitic vol] 9.4 fL Normal 9.0-12.7 [facility] Comment on above: Order Comment: Speci men Type: BLOOD SPECIMENOrdering Facility: [facility] Address: [address] [place] [address] Performed By: #### 5 7021-8 ####[facility] LABCLIA [id number] [facility] [place] [address] [facility] Platelets (Bld) [#/Vol] 334 10*3/uL Normal 150-400 [facility] Comment on above: Order Comment: Speci men Type: BLOOD SPECIMENOrdering Facility: [facility] Address: [address] [place] [address] Performed By: #### 5 7021-8 ####[facility] LABCLIA [id number] [place] [address] [facility] RBC (Bld) [#/Vol] 5.15 10*6/uL Normal 3.90-5.20 [facility] Comment on above: Order Comment: Speci men Type: BLOOD SPECIMENOrdering Facility: [facility] Address: [address] [place] [address] Performed By: #### 5 7021-8 ####[facility] LABCLIA [id number] [place] [address] [facility] WBC (Bld) [#/Vol] 7.97 10*3/uL Normal 3.70-11.00 [facility] Comment on above: Order Comment: Speci men Type: BLOOD SPECIMENOrdering Facility: [facility] Address: [address] [place] [address] Performed By: #### 5 7021-8 ####[facility] LABCLIA [id number] [place] [address] [facility] Comprehensive metabolic 2000 panelon 09-23-2024 Albumin [Mass/Vol] 4.3 g/dL Normal 3.9-4.9 [facility] Comment on above: Order Comment: Speci men Type: BLOOD SPECIMENOrdering Facility: [facility] Address: [address] [place] [address] Performed By: #### 1 9123-9, 73587-7 ####[facility] LABCLIA [id number] [facility] [place] [address] [place] ALP [Catalytic activity/Vol] 163 U/L High 34-123 [facility] Comment on above: Order Comment: Speci men Type: BLOOD SPECIMENOrdering Facility: [facility] Address: [address] [place] [address] Performed By: #### 1 9123-9, 58142-0 ####[facility] LABCLIA [id number] [facility] [place] [address] [place] ALT With P-5'-P [Catalytic activity/Vol] 13 U/L Normal 7-38 [facility] Comment on above: Order Comment: Speci men Type: BLOOD SPECIMENOrdering Facility: [facility] Address: [address] [place] [address] Performed By: #### 1 9123-9, 54372-9 ####[facility] LABCLIA [id number] [place] [address] [place] Anion gap [Moles/Vol] 13 mmol/L Normal 8-15 [facility] Comment on above: Order Comment: Speci men Type: BLOOD SPECIMENOrdering Facility: [facility] Address: [address] [place] [address] Performed By: #### 1 23-9, 95435-2 ####[facility] LABCLIA [id number] [place] [address] [place] AST With P-5'-P [Catalytic activity/Vol] 13 U/L Normal 13-35 [facility] Comment on above: Order Comment: Speci men Type: BLOOD SPECIMENOrdering Facility: [facility] Address: [address] [place] [address] Performed By: #### 1 9123-9, 65246-3 ####[facility] LABCLIA [id number] [place] [address] [place] Bilirubin [Mass/Vol] 0.3 mg/dL Normal 0.2-1.3 [facility] Comment on above: Order Comment: Speci men Type: BLOOD SPECIMENOrdering Facility: [facility] Address: [address] [place] [address] Performed By: #### 1 9123-9, 38083-7 ####[facility] LABCLIA [id number] [place] [address] [place] Calcium [Mass/Vol] 10.3 mg/dL High 8.5-10.2 [facility] Comment on above: Order Comment: Speci men Type: BLOOD SPECIMENOrdering Facility: [facility] Address: [address] [place] [address] Performed By: #### 1 9122-9, 98888-8 ####[facility] LABCLIA [id number] [facility] [place] [address] [place] Chloride [Moles/Vol] 100 mmol/L Normal 98-107 [facility] Comment on above: Order Comment: Speci men Type: BLOOD SPECIMENOrdering Facility: [facility] Address: [address] [place] [address] Performed By: #### 1 23-9, 56058-4 ####[facility] LABCLIA [id number] [place] [address] [place] CO2 [Moles/Vol] 26 mmol/L Normal 22-30 [facility] Comment on above: Order Comment: Speci men Type: BLOOD SPECIMENOrdering Facility: [facility] Address: [address] [place] [address] Performed By: #### 1 23-9, 60331-5 ####[facility] LABCLIA [id number] [place] [address] [place] Creatinine [Mass/Vol] 0.85 mg/dL Normal 0.58-0.96 [facility] Comment on above: Order Comment: Speci men Type: BLOOD SPECIMENOrdering Facility: [facility] Address: [address] [place], [place] [address] Performed By: #### 1 9123-9, 30606-4 ####[facility] LABCLIA [id number] [place] [address] [place] Creatinine and Glomerular filtration rate.predicted panel (S/P/Bld) 74 mL/min/1.73m??? Normal >=60 [facility] Comment on above: Order Comment: Prince omer Type: BLOOD SPECIMENOrdering Facility: [facility] Address: [address] [place] [address] Result Comment: Conchita mated Glomerular Filtration Rate [...] actual GFR. Performed By: #### 1 9123-9, 43123-4 ####[facility] LABCLIA [id number] [place] [address] [place] Glucose [Mass/Vol] 124 mg/dL High 74-99 [facility] Comment on above: Order Comment: Prince omer Type: BLOOD SPECIMENOrdering Facility: [facility] Address: [address] [place] [address] Result Comment: The [place] Diabetes [employer] (ADA) provides guidance for cutoff [...] Standards of Medical Care in Diabetes 2016, [employer]. Diabetes Care. 2016.39(Suppl 1). Performed By: #### 1 9123-9, 84179-4 ####[facility] LABCLIA [id number] [place] [address] [place] Potassium [Moles/Vol] 3.6 mmol/L Low 3.7-5.1 [facility] Comment on above: Order Comment: Speci men Type: BLOOD SPECIMENOrdering Facility: [facility] Address: [address] [place] [address] Performed By: #### 1 9123-9, 16509-9 ####[facility] LABCLIA [id number] [facility] [place] [address] [place] Protein [Mass/Vol] 6.8 g/dL Normal 6.3-8.0 [facility] Comment on above: Order Comment: Speci men Type: BLOOD SPECIMENOrdering Facility: [facility] Address: [address] [place] [address] Performed By: #### 1 9123-9, 44703-2 ####[facility] LABCLIA [id number] [place] [address] [place] Sodium [Moles/Vol] 139 mmol/L Normal 136-144 [facility] Comment on above: Order Comment: Speci men Type: BLOOD SPECIMENOrdering Facility: [facility] Address: [address] [place] [address] Performed By: #### 1 9123-9, 86476-8 ####[facility] LABCLIA [id number] [place] [address] [place] Urea nitrogen [Mass/Vol] 20 mg/dL Normal 7-21 [facility] Comment on above: Order Comment: Speci men Type: BLOOD SPECIMENOrdering Facility: [facility] Address: [address] [place] [address] Performed By: #### 1 9123-9, ####[facility] LABCLIA [id number] [place] [address] [place] ECG COMPLETEon 09-23-2024 ECG COMPLETE Normal [facility] ED NOTEon 09-23-2024 ED NOTE HNO ID: [id number] Author: RIO ALMEIDA RN Service: Emergency Medicine Author Type: Registered Nurse Type: ED Notes Filed: 09/23/2024 22:49 Note Text: Patient c/o unable to catch breath 2liters n/c applied. Daughter at bedside. Normal [facility] ED PROV NOTEon 09-23-2024 ED PROV NOTE Normal [facility] Magnesium SerPl-mCncon 09-23 Magnesium [Mass/Vol] 2.0 mg/dL Normal 1.7-2.3 [facility] Comment on above: Order Comment: Speci men Type: BLOOD SPECIMENOrdering Facility: [facility] Address: [address] [place] [address] Performed By: #### 1 9123-9, 58672-8 ####[facility] LABCLIA [id number] [place] [address] [place] XR CHEST 1V FRONTALon 2024 XR CHEST 1V FRONTAL Normal [facility] Basic metabolic 2000 panelon 09-22-2024 Anion gap [Moles/Vol] 14 mmol/L Normal 8-15 [facility] Comment on above: Order Comment: Speci men Type: BLOOD SPECIMENOrdering Facility: [facility] Address: [address] [place] [address] Performed By: #### 2 4321-2, ####[facility]ORYCLIA [id number] [place] [address] [place] Calcium [Mass/Vol] 9.8 mg/dL Normal 8.5-10.2 [facility] Comment on above: Order Comment: Speci men Type: BLOOD SPECIMENOrdering Facility: [facility] Address: [address] [place] [address] Performed By: #### 2 4321-2, ####[facility] LABORATORYCLIA [id number] [place] [address] [place] Chloride [Moles/Vol] 99 mmol/L Normal 98-107 [facility] Comment on above: Order Comment: Speci men Type: BLOOD SPECIMENOrdering Facility: [facility] Address: [address] [place] [address] Performed By: #### 2 4321- ####[facility] LABORATORYCLIA [id number] [place] [id number] [place] CO2 [Moles/Vol] 23 mmol/L Normal 22-30 [facility] Comment on above: Order Comment: Speci men Type: BLOOD SPECIMENOrdering Facility: [facility] Address: [address] [place] [address] Performed By: #### 2 43208-20, ####[facility] LABORATORYCLIA [id number] [place] [id number] [place] [facility] Creatinine [Mass/Vol] 0.85 mg/dL Normal 0.58-0.96 [facility] Comment on above: Order Comment: Speci men Type: BLOOD SPECIMENOrdering Facility: [facility] Address: [address] [place] [address] Performed By: #### 2 4320-09, ####[facility] [id number] [address] Creatinine and Glomerular filtration rate.predicted panel (S/P/Bld) 74 mL/min/1.73m??? Normal >=60 [facility] Comment on above: Order Comment: Speci men Type: BLOOD SPECIMENOrdering Facility: [facility] Address: [address] [place] [address] Result Comment: Conchita mated Glomerular Filtration Rate [...] actual GFR. Performed By: #### 2 43208-20, ####[facility]ORATORYCLIA [id number] [place] [id number] [place] Glucose [Mass/Vol] 97 mg/dL Normal 74-99 [facility] Comment on above: Order Comment: Speci men Type: BLOOD SPECIMENOrdering Facility: [facility] Address: [address] [place] [id number] Result Comment: The [place] Diabetes Association (ADA) provides guidance for cutoff [...] Standards of Medical Care in Diabetes 2016, [employer]. Diabetes Care. 2016.39(Suppl 1). Performed By: #### 2 4320-09, ####[facility]ORATORYCLIA [id number] [place] [address] [place] Potassium [Moles/Vol] 3.6 mmol/L Low 3.7-5.1 [facility] Comment on above: Order Comment: Speci men Type: BLOOD SPECIMENOrdering Facility: [facility] Address: [address] [place] [address] Performed By: #### 2 4320-09, ####[facility]ORATORYCLIA [id number] [place] [address] [place] Sodium [Moles/Vol] 136 mmol/L Normal 136-144 [facility] Comment on above: Order Comment: Speci men Type: BLOOD SPECIMENOrdering Facility: [facility] Address: [address] [place] [id number] Performed By: #### 2 4320-09, ####[facility]ATORYCLIA [id number] [place] [address] [place] Urea nitrogen [Mass/Vol] 23 mg/dL High 7-21 [facility] Comment on above: Order Comment: Speci men Type: BLOOD SPECIMENOrdering Facility: [facility] Address: [address] [place] [id number] Performed By: #### 2 4320-09, ####[facility] LABORATORYCLIA [id number] [place] [address] [place] CBC W Auto Differential pane l (Bld)on 09-22-2024 Basophils (Bld) [#/Vol] 0.06 10*3/uL Normal <0.11 [facility] Comment on above: Order Comment: Speci men Type: BLOOD SPECIMENOrdering Facility: [facility] Address: [address] [place] [address] Performed By: #### 5 7021-8 ####[facility] LABORATORYCLIA [id number] [address] [place] Basophils/100 WBC (Bld) 0.8 % Normal [facility] Comment on above: Order Comment: Speci men Type: BLOOD SPECIMENOrdering Facility: [facility] Address: [address] [place] [address] Performed By: #### 5 7021-8 ####[facility] LABORATORYCLIA [id number] [address] [place] Differential cell count method Nom (Bld) Auto Normal [facility] Comment on above: Order Comment: Speci men Type: BLOOD SPECIMENOrdering Facility: [facility] Address: [address] [place] [address] Performed By: #### 5 7021-8 ####[facility] LABORATORYCLIA [id number] [place] [address] [place] Eosinophils (Bld) [#/Vol] 0.12 10*3/uL Normal <0.46 [facility] Comment on above: Order Comment: Speci men Type: BLOOD SPECIMENOrdering Facility: [facility] Address: [address] [place] [address] Performed By: #### 5 7021-8 ####[facility] LABORATORYCLIA [id number] [address] [place] Eosinophils/100 WBC (Bld) 1.7 % Normal [facility] Comment on above: Order Comment: Speci men Type: BLOOD SPECIMENOrdering Facility: [facility] Address: [address] [place] [address] Performed By: #### 5 7021-8 ####[facility] LABORATORYCLIA [id number] [address] [place] Erythrocyte distribution width (RBC) [Ratio] 12.3 % Normal 11.5-15.0 [facility] Comment on above: Order Comment: Speci men Type: BLOOD SPECIMENOrdering Facility: [facility] Address: [address] [place] [address] Performed By: #### 5 7021-8 ####[facility] LABORATORYCLIA [id number] [address] [place] Hematocrit (Bld) [Volume fraction] 44.3 % Normal 36.0-46.0 [facility] Comment on above: Order Comment: Speci men Type: BLOOD SPECIMENOrdering Facility: [facility] Address: [address] [place] [address] Performed By: #### 5 7021-8 ####[facility] LABORATORYCLIA [id number] [address] [place] Hemoglobin (Bld) [Mass/Vol] 14.9 g/dL Normal 11.5-15.5 [facility] Comment on above: Order Comment: Speci men Type: BLOOD SPECIMENOrdering Facility: [facility] Address: [address] [place] [address] Performed By: #### 5 7021-8 ####[facility] LABORATORYCLIA [id number] [address] [place] Immature granulocytes (Bld) [#/Vol] 10*3/uL Normal <0.10 [facility] Comment on above: Order Comment: Speci men Type: BLOOD SPECIMENOrdering Facility: [facility] Address: [address] [place] [address] Performed By: #### 5 7021-8 ####[facility] LABORATORYCLIA [id number] [address] [place] Immature granulocytes/100 WBC (Bld) 0.3 % Normal [facility] Comment on above: Order Comment: Speci men Type: BLOOD SPECIMENOrdering Facility: [facility] Address: [address] [place] [address] Performed By: #### 5 7021-8 ####[facility] LABORATORYCLIA [id number] [address] [place] Lymphocytes (Bld) [#/Vol] 1.29 10*3/uL Normal 1.00-4.00 [facility] Comment on above: Order Comment: Speci men Type: BLOOD SPECIMENOrdering Facility: [facility] Address: [address] [place] [address] Performed By: #### 5 7021-8 ####[facility] LABORATORYCLIA [id number] [address] Lymphocytes/100 WBC (Bld) 18.2 % Normal [facility] Comment on above: Order Comment: Speci men Type: BLOOD SPECIMENOrdering Facility: [facility] Address: [address] [place] [address] Performed By: #### 5 7021-8 ####[facility] LABORATORYCLIA [id number] [address] [place] MCH (RBC) [Entitic mass] 31.1 pg Normal 26.0-34.0 [facility] Comment on above: Order Comment: Speci men Type: BLOOD SPECIMENOrdering Facility: [facility] Address: [address] [place] [address] Performed By: #### 5 7021-8 ####[facility] LABORATORYCLIA [id number] [address] [place] MCHC (RBC) [Mass/Vol] 33.6 g/dL Normal 30.5-36.0 [facility] Comment on above: Order Comment: Speci men Type: BLOOD SPECIMENOrdering Facility: [facility] Address: [address] [place] [address] Performed By: #### 5 7021-8 ####[facility] LABORATORYCLIA [id number] [address] [place] MCV (RBC) [Entitic vol] 92.5 fL Normal 80.0-100.0 [facility] Comment on above: Order Comment: Speci men Type: BLOOD SPECIMENOrdering Facility: [facility] Address: [address] [place] [address] Performed By: #### 5 7021-8 ####[facility] LABORATORYCLIA [id number] [place] [address] [place] Monocytes (Bld) [#/Vol] 0.41 10*3/uL Normal <0.87 [facility] Comment on above: Order Comment: Speci men Type: BLOOD SPECIMENOrdering Facility: [facility] Address: [address] [place] [address] Performed By: #### 5 7021-8 ####[facility] LABORATORYCLIA [id number] [address] [place] Monocytes/100 WBC (Bld) 5.8 % Normal [facility] Comment on above: Order Comment: Speci men Type: BLOOD SPECIMENOrdering Facility: [facility] Address: [address] [place] [address] Performed By: #### 5 7021-8 ####[facility] LABORATORYCLIA [id number] [address] [place] Neutrophils (Bld) [#/Vol] 5.20 10*3/uL Normal 1.45-7.50 [facility] Comment on above: Order Comment: Speci men Type: BLOOD SPECIMENOrdering Facility: [facility] Address: [address] [place] [address] Performed By: #### 5 7021-8 ####[facility] LABORATORYCLIA [id number] [address] [place] Neutrophils/100 WBC (Bld) 73.2 % Normal [facility] Comment on above: Order Comment: Speci men Type: BLOOD SPECIMENOrdering Facility: [facility] Address: [address] [place] [address] Performed By: #### 5 7021-8 ####[facility] LABORATORYCLIA [id number] [place] [address] [place] Nucleated RBC (Bld) [#/Vol] 10*3/uL Normal <0.01 [facility] Comment on above: Order Comment: Speci men Type: BLOOD SPECIMENOrdering Facility: [facility] Address: [address] [place] [address] Performed By: #### 5 7021-8 ####[facility] LABORATORYCLIA [id number] [place] [address] [place] Nucleated RBC/100 WBC (Bld) [Ratio] 0.0 /100 WBC Normal [facility] Comment on above: Order Comment: Speci men Type: BLOOD SPECIMENOrdering Facility: [facility] Address: [address] [place] [address] Performed By: #### 5 7021-8 ####[facility] LABORATORYCLIA [id number] [place] [address] [place] Platelet mean volume (Bld) [Entitic vol] 9.4 fL Normal 9.0-12.7 [facility] Comment on above: Order Comment: Speci men Type: BLOOD SPECIMENOrdering Facility: [facility] Address: [address] [place] [address] Performed By: #### 5 7021-8 ####[facility] LABORATORYCLIA [id number] [place] [address] [place] Platelets (Bld) [#/Vol] 283 10*3/uL Normal 150-400 [facility] Comment on above: Order Comment: Speci men Type: BLOOD SPECIMENOrdering Facility: [facility] Address: [address] [place] [address] Performed By: #### 5 7021-8 ####[facility] LABORATORYCLIA [id number] [place] [address] [place] RBC (Bld) [#/Vol] 4.79 10*6/uL Normal 3.90-5.20 [facility] Comment on above: Order Comment: Speci men Type: BLOOD SPECIMENOrdering Facility: [facility] Address: [address] [place] [address] Performed By: #### 5 7021-8 ####[facility] LABORATORYCLIA [id number] [address] WBC (Bld) [#/Vol] 7.10 10*3/uL Normal 3.70-11.00 [facility] Comment on above: Order Comment: Speci men Type: BLOOD SPECIMENOrdering Facility: [facility] Address: [address] [place] [address] Performed By: #### 5 7021-8 ####[facility] LABORATORYCLIA [id number] [place] [id number] [facility] [place] CNPNon 09-22-2024 CNPN Normal [facility] CTA CHEST (NON GATED) W IVCO N PEon 09-22-2024 CTA CHEST (NON GATED) W IVCON PE Normal [facility] D dimer FEU PPP-mCncon 09-22 Fibrin D-dimer FEU (PPP) [Mass/Vol] 530 ng/mL FEU High <500 [facility] Comment on above: Order Comment: Speci men Type: BLOOD SPECIMENOrdering Facility: [facility] Address: [address] [place] [address] Performed By: #### 4 8065-7 ####[facility] LABCLIA [id number] [place], [place] [id number] [place] [address] [place] ECG COMPLETEon 09-22-2024 ECG COMPLETE Normal [facility] ED NOTEon 09-22-2024 ED NOTE Normal [facility] ED NOTE Normal [facility] ED PROV NOTEon 09-22-2024 ED PROV NOTE Normal [facility] ED Triage Noteon 09-22-2024 ED Triage Note Normal [facility] Fibrin D-dimer FEU (PPP) [Ma ss/Vol]on 09-22-2024 D DIMER AGE-RELATED CUTOFF 690 ng/mL FEU Normal [facility] Comment on above: Order Comment: Speci men Type: BLOOD SPECIMENOrdering Facility: [facility] Address: [address] [place] [address] Performed By: #### 4 8065-7 ####[facility] LABCLIA [id number] [place] [id number] [facility] HIGH SENSITIVITY TROPONIN To n 09-22-2024 Troponin T.cardiac High sensitivity method [Mass/Vol] 6 ng/L Normal <12 [facility] Comment on above: Order Comment: Speci men Type: BLOOD SPECIMENOrdering Facility: [facility] Address: [address] [place] [address] Performed By: #### H STNT ####[facility] LABCLIA [id number] [place] [id number] [facility] HIGH SENSITIVITY TROPONIN T (INITIAL)on 09-22-2024 Troponin T.cardiac High sensitivity method [Mass/Vol] <6 Normal <12 [facility] Comment on above: Order Comment: Speci men Type: BLOOD SPECIMENOrdering Facility: [facility] Address: [address] [place] [address] Performed By: #### L [id number] ####[facility] LABORATORYCLIA [id number] [address] HIGH SENSITIVITY TROPONIN T (SECOND)on 09-22-2024 Troponin T.cardiac High sensitivity method [Mass/Vol] 7 ng/L Normal <12 [facility] Comment on above: Order Comment: Speci men Type: BLOOD SPECIMENOrdering Facility: [facility] Address: [address] [place] [address] Performed By: #### L [id number] ####[facility] LABORATORYCLIA [id number] [place] [id number] [facility] Magnesium SerPl-mCncon 09-22 Magnesium [Mass/Vol] 2.1 mg/dL Normal 1.7-2.3 [facility] Comment on above: Order Comment: Speci men Type: BLOOD SPECIMENOrdering Facility: [facility] Address: [address] [place] [address] Performed By: #### 2 4321-2, 58905-0 ####[facility] LABORATORYCLIA [id number] [place] [address] [place] NT-proBNP [facility]-mCncon 09-22 Natriuretic peptide.B prohormone N-Terminal [Mass/Vol] 171 pg/mL High <125 [facility] Comment on above: Order Comment: Speci men Type: BLOOD SPECIMENOrdering Facility: [facility] Address: [address] [place] [address] [place] [address] Performed By: #### 3 3762-6 ####[facility] LABCLIA [id number] [place] [address] [place] XR CHEST 2V FRONTAL/LATon XR CHEST 2V FRONTAL/LAT Normal [facility] ALP Bone [Catalytic fraction ]Ordered By: Verónica Lopez on 09-21-2024 Alkaline Phosphatase Iso-Bone 49 % 14-68 [facility] ALP Intest [Catalytic fracti on]Ordered By: Verónica Lopez on 09-21-2024 Alkaline Phosphatase Iso-Intestine 8 % 0-18 [facility] Comment on above: Performed at: [place] [id number] Director: Aj Lopez PhD, Phone: [phone] ALP Liver [Catalytic fractio n]Ordered By: Verónica Lopez on 09-21-2024 Alkaline Phosphatase Iso-Liver 43 % 18-85 [facility] Absolute neutrophil countOrd ered By: Verónica Lopez on 09-21-2024 Neutrophils (Bld) [#/Vol] 4.8 10*3/uL 2.0-7.7 [facility] Albumin to globulin ratioOrd ered By: Verónica Lopez on 09-21-2024 Albumin/Globulin [Mass ratio] 1.3 {ratio} 0.9-2.4 [facility] Alkaline phosphatase, serumO rdered By: Verónica Lopez on 09-21-2024 Alkaline Phosphatase Isoenzymes 164 IU/L High 44-121 [facility] ALP [Catalytic activity/Vol] 164 U/L High 44-121 [facility] Basophil percentageOrdered B y: Verónica Lopez on 09-21-2024 Basophils/100 WBC (Bld) 0.9 % 0-1 [facility] Bilirubin, totalOrdered By: Verónica Lopez on 09-21-2024 Bilirubin [Mass/Vol] 0.60 mg/dL 0.20-1.00 [facility] Comment on above: For patients on eltr ombopag therapy, use of Dimension [place] TBIL is not recommended. Blood urea nitrogen (BUN)/cr eatinine ratioOrdered By: Verónica Lopez on 09-21-2024 Urea nitrogen/Creatinine [Mass ratio] 16.4 mg/mg 10-20 [facility] CBC W/Diff, Automatedon Absolute Lymph 1.32 X10 3/uL Normal 0.83-4.51 [facility] Comment on above: Performed By: #### L 500.4050, L100.0100 #### [facility] Laboratory [address] [place], [address] Absolute Neut 4.8 X10 3/uL Normal 2.0-7.7 [facility] Comment on above: Performed By: #### L 500.4050, L100.0100 #### [facility] [address] [place], [address] Basophils/100 WBC (Bld) 0.9 % Normal 0-1 [facility] Comment on above: Performed By: #### L 500.4050, L100.0100 #### [facility] [address] [place], [address] Eosinophils/100 WBC (Bld) 2.8 % Normal 0-5 [facility] Comment on above: Performed By: #### L 500.4050, L100.0100 #### [facility] [address] [place], [address] Erythrocyte distribution width (RBC) [Ratio] 12.4 % Normal 11.6-14.6 [facility] Comment on above: Performed By: #### L 500.4050, L100.0100 #### [facility] [address] [place], [address] Hematocrit (Bld) [Volume fraction] 44.5 % Normal 37-47 [facility] Comment on above: Performed By: #### L 500.4050, L100.0100 #### [facility] [address] [place], [address] Hemoglobin (Bld) [Mass/Vol] 14.7 g/dL Normal 12.0-15.0 [facility] Comment on above: Performed By: #### L 500.4050, L100.0100 #### [facility] [address] [place], [address] IG% 0.300 Normal 0.0-0.9 [facility] Comment on above: Result Comment: IG% - Immature Granulocytes (promyelocytes, myelocytes and metamyelocytes) > 1% indicates that a LEFT SHIFT is Present. Performed By: #### L 500.4050, L100.0100 #### [facility] [address] [place], [address] Lymphocytes/100 WBC (Bld) 19.3 % Normal 19-41 [facility] Comment on above: Performed By: #### L 500.4050, L100.0100 #### [facility] [address] [place], [address] MCH (RBC) [Entitic mass] 30.8 pg Normal 27.0-32.0 [facility] Comment on above: Performed By: #### L 500.4050, L100.0100 #### [facility] [address] [place], [address] MCHC (RBC) [Mass/Vol] 33.0 g/dL Normal 32-36 [facility] Comment on above: Performed By: #### L 500.4050, L100.0100 #### [facility] [address] [place], [address] MCV (RBC) [Entitic vol] 93.1 fL Normal 81-99 [facility] Comment on above: Performed By: #### L 500.4050, L100.0100 #### [facility] [address] [place], [address] Monocytes/100 WBC (Bld) 6.3 % Normal 0-10 [facility] Comment on above: Performed By: #### L 500.4050, L100.0100 #### [facility] [address] [place], [address] Neutrophils/100 WBC (Bld) 70.4 % High 47-70 [facility] Comment on above: Performed By: #### L 500.4050, L100.0100 #### [facility] [address] [place], [address] Nucleated RBC (Bld) [#/Vol] 0 10*3/uL Normal 0-5 [facility] Comment on above: Performed By: #### L 500.4050, L100.0100 #### [facility] [address] [place], [address] Platelet mean volume (Bld) [Entitic vol] 9.3 fL Normal 6.2-12.0 [facility] Comment on above: Performed By: #### L 500.4050, L100.0100 #### [facility] [address] [place], [address] Platelets (Bld) [#/Vol] 303 10*3/uL Normal 150-450 [facility] Comment on above: Performed By: #### L 500.4050, L100.0100 #### [facility] [address] [place], [address] RBC (Bld) [#/Vol] 4.78 10*6/uL Normal 4.2-5.4 [facility] Comment on above: Performed By: #### L 500.4050, L100.0100 #### [facility] [address] [place], [address] RDW SD 42.9 fl Normal 35.1-43.9 [facility] Comment on above: Performed By: #### L 500.4050, L100.0100 #### [facility] [address] [place], [address] WBC (Bld) [#/Vol] 6.8 10*3/uL Normal 4.4-11.0 [facility] Comment on above: Performed By: #### L 500.4050, L100.0100 #### [facility] [address] [place], [address] Carbon dioxide measurementOr dered By: Verónica Lopez on 09-21-2024 CO2 [Moles/Vol] 28.0 mmol/L 21.0-32.0 [facility] Chloride measurementOrdered By: Verónica Lopez on 09-21-2024 Chloride [Moles/Vol] 106 mmol/L 98-107 [facility] Comprehensive Metabolic Prof ilon 09-21-2024 Albumin [Mass/Vol] 3.9 g/dL Normal 3.2-5.0 [facility] Comment on above: Performed By: #### L 500.4050, L100.0100 ####[facility] [address] [place], [address] Albumin/Globulin [Mass ratio] 1.3 {ratio} Normal 0.9-2.4 [facility] Comment on above: Performed By: #### L 500.4050, L100.0100 ####[facility] [address] [place], [address] ALK P 152 U/L High 45-117 [facility] Comment on above: Performed By: #### L 500.4050, L100.0100 ####[facility] [address] [place], [address] ALT [Catalytic activity/Vol] 23 U/L Normal 13-56 [facility] Comment on above: Performed By: #### L 500.4050, L100.0100 ####[facility] [address] [place], [address] AST [Catalytic activity/Vol] 13 U/L Low 15-37 [facility] Comment on above: Performed By: #### L 500.4050, L100.0100 ####[facility] [address] [place], [address] Bilirubin [Mass/Vol] 0.60 mg/dL Normal 0.20-1.00 [facility] Comment on above: Result Comment: For patients on eltrombopag therapy, use of Dimension [place] TBIL is not recommended. Performed By: #### L 500.4050, L100.0100 ####[facility] [address] [place], [address] BUN/CRE 16.4 RATIO Normal 10-20 [facility] Comment on above: Performed By: #### L 500.4050, L100.0100 ####[facility] [address] [place], [address] CA,Total 9.4 mg/dL Normal 8.5-10.1 [facility] Comment on above: Performed By: #### L 500.4050, L100.0100 ####[facility] [address] [place], [address] Chloride [Moles/Vol] 106 mmol/L Normal 98-107 [facility] Comment on above: Performed By: #### L 500.4050, L100.0100 ####[facility] [address] [place], [address] CO2 [Moles/Vol] 28.0 mmol/L Normal 21.0-32.0 [facility] Comment on above: Performed By: #### L 500.4050, L100.0100 ####[facility] [address] [place], [address] Creatinine [Mass/Vol] 0.91 mg/dL Normal 0.55-1.02 [facility] Comment on above: Result Comment: The validity of the calculated GFR GFRAA in patients over 70 years has not been determined. Clinical correlation is essential. Performed By: #### L 500.4050, L100.0100 ####[facility] [address] [place], [address] ECRCL 58.26 ml/min Normal [facility] Comment on above: Performed By: #### L 500.4050, L100.0100 ####[facility] [address] [place], [address] EST GFR - AA 78 mL/min Normal >60 [facility] Comment on above: Result Comment: Afri can Cymraes GFR Calc Performed By: #### L 500.4050, L100.0100 ####[facility] [address] [place], [address] GAP 6 Normal 5-15 [facility] Comment on above: Performed By: #### L 500.4050, L100.0100 ####[facility] [address] [place], [address] GFR/1.73 sq M.predicted among non-blacks MDRD (S/P/Bld) [Vol rate/Area] 65 mL/min/{1.73_m2} Normal >60 [facility] Comment on above: Result Comment: Non- GFR Calc Performed By: #### L 500.4050, L100.0100 ####[facility] [address] [place], [address] Globulin (S) [Mass/Vol] 3.1 g/dL Normal 2.2-4.2 [facility] Comment on above: Performed By: #### L 500.4050, L100.0100 ####[facility] [address] [place], [address] Glucose [Mass/Vol] 65 mg/dL Low 74-106 [facility] Comment on above: Performed By: #### L 500.4050, L100.0100 ####[facility] [address] [place], [address] Potassium [Moles/Vol] 3.4 mmol/L Low 3.5-5.1 [facility] Comment on above: Performed By: #### L 500.4050, L100.0100 ####[facility] [address] [place], [address] Sodium [Moles/Vol] 140 mmol/L Normal 136-145 [facility] Comment on above: Performed By: #### L 500.4050, L100.0100 ####[facility] [address] [place], [address] T PROT 7.0 g/dL Normal 6.4-8.2 [facility] Comment on above: Performed By: #### L 500.4050, L100.0100 ####[facility] [address] [place], [address] Urea nitrogen [Mass/Vol] 15 mg/dL Normal 7-18 [facility] Comment on above: Performed By: #### L 500.4050, L100.0100 ####[facility] [address] [place], [address] Eosinophil percentageOrdered By: Verónica Lopez on 09-21-2024 Eosinophils/100 WBC (Bld) 2.8 % 0-5 [facility] Erythrocyte distribution wid th ratioOrdered By: Verónica Lopez on 09-21-2024 Erythrocyte distribution width (RBC) [Ratio] 12.4 % 11.6-14.6 [facility] Erythrocyte distribution wid th standard deviationOrdered By: Verónica Lopez on 09-21-2024 Erythrocyte distribution width (RBC) [Entitic vol] 42.9 fL 35.1-43.9 [facility] Estimated glomerular filtrat ion rate (GFR) AmericanOrdered By: Verónica Lopez on 09-21-2024 Estimated GFR (MDRD) Amer 78 mL/min >60 [facility] Comment on above: GFR Calc Estimation of creatinine marielena aranceOrdered By: Verónica Lopez on 09-21-2024 Estimated Creatinine Clearance Calc 58.26 ml/min [facility] Glomerular filtration rate ( GFR) estimationOrdered By: Verónica Lopez on 09-21-2024 Estimated GFR (MDRD) Non-Af Amer 65 mL/min >60 [facility] Comment on above: Non- GFR Calc Glucose measurementOrdered B y: Verónica Lopez on 09-21-2024 Glucose [Mass/Vol] 65 mg/dL Low 74-106 [facility] Hematocrit Auto (Bld) [Volum e fraction]Ordered By: Verónica Lopez on 09-21-2024 Hematocrit (Bld) [Volume fraction] 44.5 % 37-47 [facility] Hemoglobin measurementOrdere d By: Verónica Lopez on 09-21-2024 Hemoglobin (Bld) [Mass/Vol] 14.7 g/dL 12.0-15.0 [facility] Immature granulocytes/100 WB C Auto (Bld)Ordered By: Verónica Lopez on 09-21-2024 Immature granulocytes/100 WBC (Bld) 0.300 % 0.0-0.9 [facility] Comment on above: IG% - Immature Granu locytes (promyelocytes, myelocytes and metamyelocytes) > 1% indicates that a LEFT SHIFT is Present. Laboratory - Chemistry and C hemistry - challengeOrdered By: Verónica Lopez on 09-21-2024 AST [Catalytic activity/Vol] 13 U/L Low 15-37 [facility] Lymphocytes Auto (Unsp spec) [#/Vol]Ordered By: Verónica Lopez on 09-21-2024 Lymphocytes (Bld) [#/Vol] 1.32 10*3/uL 0.83-4.51 [facility] Lymphocytes/100 WBC Auto (Un sp spec)Ordered By: Verónica Lopez on 09-21-2024 Lymphocytes/100 WBC (Bld) 19.3 % 19-41 [facility] MCV (mean corpuscular volume ) determinationOrdered By: Verónica Lopez on 09-21-2024 MCV (RBC) [Entitic vol] 93.1 fL 81-99 [facility] Mean corpuscular hemoglobin (MCH) determinationOrdered By: Verónica Lopez on 09-21-2024 MCH (RBC) [Entitic mass] 30.8 pg 27.0-32.0 [facility] Mean corpuscular hemoglobin concentration (MCHC) determinationOrdered By: Verónica Lopez on 09-21-2024 MCHC (RBC) [Mass/Vol] 33.0 g/dL 32-36 [facility] Mean platelet volume determi nationOrdered By: Verónica Lopez on 09-21-2024 Platelet mean volume (Bld) [Entitic vol] 9.3 fL 6.2-12.0 [facility] Monocyte percentageOrdered B y: Verónica Lopez on 09-21-2024 Monocytes/100 WBC (Bld) 6.3 % 0-10 [facility] Neutrophil percentageOrdered By: Verónica Lopez on 09-21-2024 Neutrophils/100 WBC (Bld) 70.4 % High 47-70 [facility] Nucleated red blood cell per centageOrdered By: Verónica Lopez on 09-21-2024 Nucleated RBC/100 WBC (Bld) [Ratio] 0 % 0-5 [facility] Oncology Visit Reporton 02 Oncology Visit Report [facility] [address] [place] [address] OFFICE VISIT Date of Service: 09/21/24 1029 MR#: [id number] Acct: [id number] Name: BO JACOB Rep #: [id number] : 1955 From: Verónica Lopez NP [employer] SPECIALIST -C Age/Sex: 68/F [place] [facility] Status: Signed HPI Subjective Date of Service 09/21/24 Chief Complaint h/o breast cancer on endocrine therapy History of Present Illness Patient presented at age 68-year-old with stage IA (T1c, N0, M0) G3, ER positive, WI positive, 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 After skipping 2019 screening mammographies she felt a painless lump in the right breast and a diagnostic mammogram followed by a biopsy confirmed malignancy. April 28, 2020 she underwent a partial mastectomy with sentinel lymph node biopsy. Her work-up and surgery were done at [facility], she was then seen by medical oncology at [facility] with the recommendation of an adjuvant course of chemo immune therapy (ACTH/TCH) . She then went for a second opinion at [facility] were adjuvant chemoradiotherapy (TH) again recommended. She eventually made the decision to receive her treatment at [facility] close to home. CT chest June [...] field. Patient drove all the way to [place] and then back just prior to 2020. Experienced an acute right lower back pain and right sided sciatica. Although she had similar but less severe episodes in the past, this by far was the worst she ever experienced. She was seen in [facility] emergency room and plain x-rays [...] 2: Benig (more content not included)... Normal [facility] Platelet countOrdered By: Alexx Lopez on 09-21-2024 Platelets (Bld) [#/Vol] 303 10*3/uL 150-450 [facility] Potassium measurementOrdered By: Verónica Lopez on 09-21-2024 Potassium [Moles/Vol] 3.4 mmol/L Low 3.5-5.1 [facility] RBC Auto (Bld) [#/Vol]Ordere d By: Verónica Lopez on 09-21-2024 RBC (Bld) [#/Vol] 4.78 10*6/uL 4.2-5.4 [facility] Serum anion gap measurementO rdered By: Verónica Lopez on 09-21-2024 Anion gap [Moles/Vol] 6 mmol/L 5-15 [facility] Serum globulin measurementOr dered By: Verónica Lopez on 09-21-2024 Globulin (S) [Mass/Vol] 3.1 g/dL 2.2-4.2 [facility] Serum or plasma alanine torres otransferase (ALT) measurementOrdered By: Verónica Lopez on 09-21-2024 ALT [Catalytic activity/Vol] 23 U/L 13-56 [facility] Serum or plasma albumin giovany urement (mass/volume)Ordered By: Verónica Lopez on 09-21-2024 Albumin [Mass/Vol] 3.9 g/dL 3.2-5.0 [facility] Serum or plasma alkaline semaj sphatase measurementOrdered By: Verónica Lopez on 09-21-2024 ALP [Catalytic activity/Vol] 152 U/L High 45-117 [facility] Serum or plasma bone alkalin e phosphatase/total alkaline phosphatase ratio (catalyticOrdered By: Verónica Lopez on 09-21-2024 ALP Bone [Catalytic fraction] 49 % 14-68 [facility] Serum or plasma calcium giovany urement (mass/volume)Ordered By: Verónica Lopez on 09-21-2024 Calcium [Mass/Vol] 9.4 mg/dL 8.5-10.1 [facility] Serum or plasma creatinine m easurement (mass/volume)Ordered By: Verónica Lopez on 09-21-2024 Creatinine [Mass/Vol] 0.91 mg/dL 0.55-1.02 [facility] Comment on above: The validity of the calculated GFR & GFRAA in patients over 70 years has not been determined. Clinical correlation is essential. Serum or plasma intestinal a lkaline phosphatase/total alkaline phosphatase ratio (catOrdered By: Verónica Lopez on 09-21-2024 ALP Intest [Catalytic fraction] 8 % 0-18 [facility] Comment on above: Performed at: - [id number] [place], [place] [id number] Director: Aj Lopez PhD, Phone: [phone] Serum or plasma liver alkali ne phosphatase/total alkaline phosphatase ratio (catalytiOrdered By: Verónica Lopez on 09-21-2024 ALP Liver [Catalytic fraction] 43 % 18- [facility] Serum or plasma urea nitroge n measurement (mass/volume)Ordered By: Verónica Lopez on 09-21-2024 Urea nitrogen [Mass/Vol] 15 mg/dL 7-18 [facility] Sodium levelOrdered By: Verónica Lopez on 09-21-2024 Sodium [Moles/Vol] 140 mmol/L 136-145 [facility] Total proteinOrdered By: Erica Lopez on 09-21-2024 Protein [Mass/Vol] 7.0 g/dL 6.4-8.2 [facility] White blood cell (WBC) count Ordered By: Verónica Lopez on 09-21-2024 WBC (Bld) [#/Vol] 6.8 10*3/uL 4.4-11.0 [facility] ACTIVATED CLOTTING TIME, POC (AK,MH,MR)on 09-10-2024 Activated Clotting Time (POCT) 262 Abnormal [facility] Interpretation and review of laboratory results Abnormal [facility] Meter ID:[id number] Location:[facility] [employer], [address] [place] [address], [address] [place] [address] POINT OF CARE [facility] ALLIED HEALTHon 09-10-2024 ALLIED HEALTH Normal [facility] ECHOon 09-10-2024 CONCLUSIONS: - Technically difficult exam due to suboptimal positioning and post op. - Exam indication: Re-evaluation to guide therapy in known adult CHD - The left ventricle is normal in size. Left ventricular systolic function is normal. EF = 63 5% (2D biplane) - Agitated saline study performed on clips# (). No obvious shunt seen. - Exam was compared with the prior echocardiographic exam performed on 08/05/2024. (BLACK). No obvious shunt seen. Trivial -1+ TR seen on today's study. * * * Final * * * [facility] Echocardiography Report: Transthoracic Echo [facility] Date of service: 09/10/2024 1:27:26 PM [facility] Ordering physician: VANDANA GOLDSTEIN Indication: Re-evaluation to [...] ECHOon 09-10-2024 LV Ejection Fraction 63 % [facility] Comment on above: (2D biplane) EF > 54 An LV Ejection Fraction of > 50% is normal No Panel Informationon 09-10 [facility] OPERATIVE NOon 09-10-2024 OPERATIVE NO Normal [facility] XR CHEST 1V FRONTAL PORTon 0 09-10-2024 XR CHEST 1V FRONTAL PORT Normal [facility] XR Chest Single viewon 09-10 IMPRESSION: No acute process. Memory Care Program Resident: [facility] Transcribe Date/Time: Sep 10 2024 1:25P Dictated by : KATLIN RAHMAN MD This examination was interpreted and the report reviewed and electronically signed by: KATLIN RAHMAN MD on Sep 10 2024 1:27PM EST [facility] CP[facility]O * * *Final Report* * * DATE [...] Cardiomediastinal silhouette: Stable cardiomediastinal silhouette. Other: . [facility] SYNGO Provider, [facility] Imagtx g [place] - 09/10/2024 * * *Final Report* * [...] Other: . IMPRESSION IMPRESSION: No acute process. Memory Care Program Resident: RODO Transcribe Date/Time: Sep 10 2024 1:25P Dictated by : KATLIN RAHMAN MD This examination was interpreted and the report reviewed and electronically signed by: KATLIN RAHMAN MD on Sep 10 2024 1:27PM EST [facility] Radiology Study observation (narrative) [facility] XR Chest Single viewOrdered By: Ccf Provider on 09-10-2024 [facility] Basic metabolic 2000 panelon 09-08-2024 Anion gap [Moles/Vol] 11 mmol/L Normal 8-15 [facility] Comment on above: Order Comment: Speclizett omer Type: BLOOD SPECIMENOrdering Facility: [facility] Address: [address] [place] [address] Performed By: #### 2 4321-2 ####[facility] LABCLIA [id number] [place] [address] [place] Calcium [Mass/Vol] 10.2 mg/dL Normal 8.5-10.2 [facility] Comment on above: Order Comment: Prince omer Type: BLOOD SPECIMENOrdering Facility: [facility] Address: [address] [place] [address] Performed By: #### 2 4321-2 ####[facility] LABCLIA [id number] [place] [address] [place] Chloride [Moles/Vol] 100 mmol/L Normal 98-107 [facility] Comment on above: Order Comment: Prince omer Type: BLOOD SPECIMENOrdering Facility: [facility] Address: [address] [place] [address] Performed By: #### 2 4321-2 ####[facility] LABCLIA [id number] [place] [address] [place] CO2 [Moles/Vol] 29 mmol/L Normal 22-30 [facility] Comment on above: Order Comment: Speci men Type: BLOOD SPECIMENOrdering Facility: [facility] Address: [address] [place] [address] Performed By: #### 2 4321-2 ####[facility] LABCLIA [id number] [place] [address] [place] Creatinine [Mass/Vol] 0.95 mg/dL Normal 0.58-0.96 [facility] Comment on above: Order Comment: Speci men Type: BLOOD SPECIMENOrdering Facility: [facility] Address: [address] [place] [address] Performed By: #### 2 4321-2 ####[facility] LABCLIA [id number] [place] [address] [facility] Creatinine and Glomerular filtration rate.predicted panel (S/P/Bld) 65 mL/min/1.73m??? Normal >=60 [facility] Comment on above: Order Comment: Speci men Type: BLOOD SPECIMENOrdering Facility: [facility] Address: [address] [place] [address] Result Comment: Conchita mated Glomerular Filtration Rate [...] actual GFR. Performed By: #### 2 4321-2 ####[facility] LABCLIA [id number] [place] [address] [place] Glucose [Mass/Vol] 88 mg/dL Normal 74-99 [facility] Comment on above: Order Comment: Prince omer Type: BLOOD SPECIMENOrdering Facility: [facility] Address: [address] [place] [address] Result Comment: The [place] Diabetes Association (ADA) provides guidance for cutoff [...] Standards of Medical Care in Diabetes 2016, [employer] Association. Diabetes Care. 2016.39(Suppl 1). Performed By: #### 2 4321-2 ####[facility] LABCLIA [id number] [place] [address] [place] Potassium [Moles/Vol] 4.6 mmol/L Normal 3.7-5.1 [facility] Comment on above: Order Comment: Prince omer Type: BLOOD SPECIMENOrdering Facility: [facility] Address: [address] [place] [address] Performed By: #### 2 4321-2 ####[facility] LABCLIA [id number] [place] [address] [place] Sodium [Moles/Vol] 140 mmol/L Normal 136-144 [facility] Comment on above: Order Comment: Prince omer Type: BLOOD SPECIMENOrdering Facility: [facility] Address: [address] [place] [address] Performed By: #### 2 4321-2 ####[facility] LABCLIA [id number] [place] [address] [place] Urea nitrogen [Mass/Vol] 24 mg/dL High - [facility] Comment on above: Order Comment: Prince omer Type: BLOOD SPECIMENOrdering Facility: [facility] Address: [address] [place] [address] Performed By: #### 2 4321-2 ####[facility] LABCLIA [id number] [place] [address] [place] CBC panel Auto (Bld)on 09-08 Erythrocyte distribution width (RBC) [Ratio] 12.1 % Normal 11.5-15.0 [facility] Comment on above: Order Comment: Speci men Type: BLOOD SPECIMENOrdering Facility: [facility] Address: [address] [place] [address] Performed By: #### 5 8410-2 ####[facility] LABCLIA [id number] [place] [address] [facility] Hematocrit (Bld) [Volume fraction] 49.7 % High 36.0-46.0 [facility] Comment on above: Order Comment: Speci men Type: BLOOD SPECIMENOrdering Facility: [facility] Address: [address] [place] [address] Performed By: #### 5 8410-2 ####[facility] LABCLIA [id number] [place] [address] [facility] Hemoglobin (Bld) [Mass/Vol] 16.2 g/dL High 11.5-15.5 [facility] Comment on above: Order Comment: Speci men Type: BLOOD SPECIMENOrdering Facility: [facility] Address: [address] [place] [address] Performed By: #### 5 8410-2 ####[facility] LABCLIA [id number] [place] [address] [place] MCH (RBC) [Entitic mass] 30.6 pg Normal 26.0-34.0 [facility] Comment on above: Order Comment: Speci men Type: BLOOD SPECIMENOrdering Facility: [facility] Address: [address] [place] [address] Performed By: #### 5 8410-2 ####[facility] LABCLIA [id number] [place] [address] [place] MCHC (RBC) [Mass/Vol] 32.6 g/dL Normal 30.5-36.0 [facility] Comment on above: Order Comment: Speci men Type: BLOOD SPECIMENOrdering Facility: [facility] Address: [address] [place] [address] Performed By: #### 5 8410-2 ####[facility] LABCLIA [id number] [place] [address] [place] MCV (RBC) [Entitic vol] 93.8 fL Normal 80.0-100.0 [facility] Comment on above: Order Comment: Speci men Type: BLOOD SPECIMENOrdering Facility: [facility] Address: [address] [place] [address] Performed By: #### 5 8410-2 ####[facility] LABCLIA [id number] [place] [address] [place] Platelet mean volume (Bld) [Entitic vol] 9.5 fL Normal 9.0-12.7 [facility] Comment on above: Order Comment: Speci men Type: BLOOD SPECIMENOrdering Facility: [facility] Address: [address] [place] [address] Performed By: #### 5 8410-2 ####[facility] LABCLIA [id number] [facility] [place] [address] [place] Platelets (Bld) [#/Vol] 323 10*3/uL Normal 150-400 [facility] Comment on above: Order Comment: Speci men Type: BLOOD SPECIMENOrdering Facility: [facility] Address: [address] [place] [address] Performed By: #### 5 8410-2 ####[facility] LABCLIA [id number] [facility] [place] [address] [place] RBC (Bld) [#/Vol] 5.30 10*6/uL High 3.90-5.20 [facility] Comment on above: Order Comment: Speci men Type: BLOOD SPECIMENOrdering Facility: [facility] Address: [address] [place] [address] Performed By: #### 5 8410-2 ####[facility] LABCLIA [id number] [place] [address] [place] WBC (Bld) [#/Vol] 8.14 10*3/uL Normal 3.70-11.00 [facility] Comment on above: Order Comment: Prince omer Type: BLOOD SPECIMENOrdering Facility: [facility] Address: [address] [place] [address] Performed By: #### 5 8410-2 ####[facility] LABCLLANA [id number] [facility] [place] [address] [facility] Knee 4 or More Viewson 08-31 Knee 4 or More Views [facility] [address] [place] [address] Knee 4 or More Views MR#: [id number] Acct: [id number] Name: BO JACOB Rep #: [id number] : 1955 F 68 From: Hugh Hicks MD PCP: KEYA Reaves Status: DEP AMB Study: Knee 4 or More Views Date of Exam: 08/31/24 Exam# [id number] Ordering Dr: Raymond Lagos DO [id number] STUDY: X-RAY - LEFT KNEE REASON FOR [...] Signed: Hugh Hicks MD at 14:00 EST , CC: KEYA Dias; Dr. Raymond Lagos DO Memory Care Program Resident: Signed Normal [facility] Orthopedic Visit Reporton Orthopedic Visit Report [facility] [address] [place] [address] OFFICE VISIT Date of Service: 08/31/24 MR#: [id number] Acct: [id number] Name: BO JACOB Rep #: [id number] : 1955 Provider: Dr. Raymond jaimes DO Age/Sex: 68/F Location[place] [facility] Status: Signed Intake Vital Signs 06/17/24 15:54 08/31/24 09:07 Height 5 ft 1 in 5 ft 1 in Weight: 177 lb 6 oz BMI 33.5 Intake Visit Reasons: LEFT KNEE Chief Complaint: Left Knee Pain Accompanied by: Self Is patient in pain?: Yes Pain scale (1-10): 2 Allergies acetaminophen (From [place]) Allergy (Intermediate, Verified 08/31/24 09:08) Rash adhesive tape Allergy (Intermediate, Verified 08/31/24 09:08) Hives hydrocodone (From [place]) Allergy (Intermediate, Verified 08/31/24 09:08) Rash oxycodone [...] 1-2 times per week duration: 15-30 minutes/day frankie/worship: Non-Jainism/Independ ent seatbelt use: always do you feel [...] medial part (more content not included)... Normal [facility] CNPNon 08-17-2024 CNPN Normal [facility] ANES POSTPROC EVALon 024 ANES POSTPROC EVAL Normal [facility] ANES PRE-OPon 08-05-2024 ANES PRE-OP Normal [facility] BRIEF OP NOTon 08-05-2024 BRIEF OP NOT Normal [facility] ECHO TRANSESOPHAGEALon 08-05 ECHO TRANSESOPHAGEAL Normal [facility] CNPNon 07-28-2024 CNPN Normal [facility] CNOVon 07-27-2024 CNOV Normal [facility] CNPNon 07-22-2024 CNPN Normal [facility] BRIEF OP NOTon 07-20-2024 BRIEF OP NOT Normal [facility] CNPNon 07-08-2024 CNPN Normal [facility] Surgery Visit Reporton 07-03 Surgery Visit Report [facility] [address] [place] [address] OFFICE VISIT Date of Service: 07/03/24 MR#: [id number] Acct: [id number] Name: BO JACOB Rep #: [id number] : 1955 Provider: Dr. Dia shepherd MD Age/Sex: 68/F Location: [facility] Status: Signed Intake Vital Signs 06/17/24 15:54 [...] patient in pain?: No Allergies acetaminophen (From [place]) Allergy (Intermediate, Verified 07/03/24 14:22) Rash adhesive tape Allergy (Intermediate, Verified 07/03/24 14:22) Hives hydrocodone (From [place]) Allergy (Intermediate, Verified 07/03/24 14:22) Rash oxycodone [...] vis,est,level 3 Diagnoses Left breast lump N63.20 [facility] Medical History PFO (patent foramen ovale) Wears [...] cyst Previous section Family History ... Normal [facility] 06-30-2024 [facility] 06-26-2024 [facility] [facility] [facility]24 [facility] Absolute lymphocyte countOrd ered By: Markos Chacon on 12-12-2023 Lymphocytes Auto (Unsp spec) [#/Vol] 1.24 10*3/uL 0.83-4.51 [facility] Automated lymphocyte count a s percentage of total leukocytesOrdered By: Markos Chacon on 12-12-2023 Lymphocytes/100 WBC Auto (Unsp spec) 17.5 % 19-41 [facility] Basophil percentageOrdered B y: Markos Chacon on 12-12-2023 Basophils/100 WBC (Bld) 1.1 % 0-1 [facility] Chloride [Moles/Vol] 105 mmol/L 98-[address] [facility] [address] [facility] Eosinophils/100 WBC (Bld) 3.0 % 0-5 [facility] Glucose [Mass/Vol] 90 mg/dL 74-106 [facility] Hemoglobin (Bld) [Mass/Vol] 14.8 g/dL 12.0-15.0 [facility] Monocytes/100 WBC (Bld) 9.9 % 0-10 [facility] Neutrophils (Bld) [#/Vol] 4.8 10*3/uL 2.0-7.7 [facility] Neutrophils/100 WBC (Bld) 68.1 % 47-70 [facility] Potassium [Moles/Vol] 3.7 mmol/L 3.5-5.1 [facility] Sodium [Moles/Vol] 141 mmol/L 136-145 [facility] WBC (Bld) [#/Vol] 7.1 10*3/uL 4.4-11.0 [facility] Determination of erythrocyte mean corpuscular volume (MCV)Ordered By: Markos Chacon on 12-12-2023 MCV (RBC) [Entitic vol] 92.4 fL 81-99 [facility] Erythrocyte distribution wid th ratioOrdered By: Markos Chacon on 12-12-2023 Erythrocyte distribution width (RBC) [Ratio] 12.9 % 11.6-14.6 [facility] Erythrocyte distribution wid th standard deviationOrdered By: Markos Chacon on 12-12-2023 Erythrocyte distribution width (RBC) [Entitic vol] 43.8 fL 35.1-43.9 [facility] Hematocrit Auto (Bld) [Volum e fraction]Ordered By: Markos Chacon on 12-12-2023 Hematocrit (Bld) [Volume fraction] 43.8 % 37-47 [facility] Immature granulocytes/100 WB C Auto (Bld)Ordered By: Markos Chacon on 12-12-2023 Immature granulocytes/100 WBC (Bld) 0.400 % 0.0-0.9 [facility] Comment on above: IG% - Immature Granu locytes (promyelocytes, myelocytes and metamyelocytes) > 1% indicates that a LEFT SHIFT is Present. Laboratory - Chemistry and C hemistry - challengeOrdered By: Markos Chacon on 12-12-2023 CO2 [Moles/Vol] 28.0 mmol/L 21.0-32.0 [facility] Urea nitrogen/Creatinine [Mass ratio] 26.9 mg/mg 10-20 [facility] Laboratory - Hematology and Cell countsOrdered By: Markos Chacon on 12-12-2023 MCH (RBC) [Entitic mass] 31.2 pg 27.0-32.0 [facility] MCHC (RBC) [Mass/Vol] 33.8 g/dL 32-36 [facility] Nucleated RBC/100 WBC (Bld) [Ratio] 0 % 0-5 [facility] Platelet mean volume (Bld) [Entitic vol] 9.5 fL 6.2-12.0 [facility] Platelets (Bld) [#/Vol] 268 10*3/uL 150-450 [facility] Laboratory - Microbiology an d Antimicrobial susceptibilityOrdered By: Markos Chacon on 12-12-2023 SARS-CoV-2 (COVID-19) RNA KRISTOFER+probe Ql (Unsp spec) [facility] No Panel InformationOrdered By: Markos Chacon on 12-12-2023 D-Dimer Quantitative (PE/DVT) 0.38 FEU/ug/m 0.27-0.49 [facility] Comment on above: NORMAL D-Dimer level (<0.50) indicates no DVT or PE. Estimated Creatinine Clearance Calc 53.23 ml/min [facility] Estimated GFR (MDRD) Amer 73 mL/min >60 [facility] Comment on above: GFR Calc Estimated GFR (MDRD) Non-Af Amer 61 mL/min >60 [facility] Comment on above: Non- GFR Calc Troponin I High Sensitivity 4 pg/mL 3.0-54.0 [facility] Comment on above: Please Note: New Macy t Units and Gender Specific Reference Ranges. For more information see Policy Stat Procedure [place] High Sensitivity Troponin (TNIH) and attachments. RBC Auto (Bld) [#/Vol]Ordere d By: Markos Chacon on 12-12-2023 RBC (Bld) [#/Vol] 4.74 10*6/uL 4.2-5.4 [facility] Serum or plasma calcium giovany urement (mass/volume)Ordered By: Markos Chacon on 12-12-2023 Calcium [Mass/Vol] 9.2 mg/dL 8.5-10.1 [facility] Serum or plasma creatinine m easurement (mass/volume)Ordered By: Markos Chacon on 12-12-2023 Creatinine [Mass/Vol] 0.97 mg/dL 0.55-1.02 [facility] Comment on above: The validity of the calculated GFR & GFRAA in patients over 70 years has not been determined. Clinical correlation is essential. Serum or plasma urea nitroge n measurement (mass/volume)Ordered By: Markos Chacon on 12-12-2023 Urea nitrogen [Mass/Vol] 26 mg/dL 7-18 [facility] Thin prep Papanicolaou smear with manual screeningOrdered By: Markos Chacon on 12-12-2023 Thin prep Papanicolaou smear with manual screening 8 5-15 [facility] Absolute lymphocyte countOrd ered By: Verónica Lopez on 09-23-2023 Lymphocytes Auto (Unsp spec) [#/Vol] 1.39 10*3/uL 0.83-4.51 [facility] Automated lymphocyte count a s percentage of total leukocytesOrdered By: Verónica Lopez on 09-23-2023 Lymphocytes/100 WBC Auto (Unsp spec) 20.7 % 19-41 [facility] Basophil percentageOrdered B y: Verónica Lopez on 09-23-2023 Basophils/100 WBC (Bld) 1.2 % 0-1 [facility] Bilirubin [Mass/Vol] 0.70 mg/dL 0.20-1.00 [facility] Comment on above: For patients on eltr ombopag therapy, use of Dimension [place] TBIL is not recommended. Chloride [Moles/Vol] 109 mmol/L 98-107 [facility] Eosinophils/100 WBC (Bld) 3.4 % 0-5 [facility] Glucose [Mass/Vol] 97 mg/dL 74-106 [facility] Hemoglobin (Bld) [Mass/Vol] 14.9 g/dL 12.0-15.0 [facility] Monocytes/100 WBC (Bld) 8.2 % 0-10 [facility] Neutrophils (Bld) [#/Vol] 4.4 10*3/uL 2.0-7.7 [facility] Neutrophils/100 WBC (Bld) 66.1 % 47-70 [facility] Potassium [Moles/Vol] 3.7 mmol/L 3.5-5.1 [facility] Protein [Mass/Vol] 7.5 g/dL 6.4-8.2 [facility] Sodium [Moles/Vol] 140 mmol/L 136-145 [facility] WBC (Bld) [#/Vol] 6.7 10*3/uL 4.4-11.0 [facility] Determination of erythrocyte mean corpuscular volume (MCV)Ordered By: Verónica Lopez on 09-23-2023 MCV (RBC) [Entitic vol] 92.2 fL 81-99 [facility] Erythrocyte distribution wid th ratioOrdered By: [facility] on [facility]-2023 Erythrocyte distribution width (RBC) [Ratio] 12.4 % 11.6-14.6 [facility] Erythrocyte distribution wid th standard deviationOrdered By: [facility] on 09-23-2023 Erythrocyte distribution width (RBC) [Entitic vol] 41.4 fL 35.1-43.9 [facility] Hematocrit Auto (Bld) [Volum e fraction]Ordered By: [facility] on 09-23-2023 Hematocrit (Bld) [Volume fraction] 44.7 % 37-47 [facility] Immature granulocytes/100 WB C Auto (Bld)Ordered By: [facility] on 09-23-2023 Immature granulocytes/100 WBC (Bld) 0.400 % 0.0-0.9 [facility] Comment on above: IG% - Immature Granu locytes (promyelocytes, myelocytes and metamyelocytes) > 1% indicates that a LEFT SHIFT is Present. Laboratory - Chemistry and C hemistry - challengeOrdered By: [facility] on 09-23-2023 Albumin/Globulin [Mass ratio] 1.1 {ratio} 0.9-2.4 [facility] ALP [Catalytic activity/Vol] 137 U/L 45-117 [facility] ALT [Catalytic activity/Vol] 29 U/L 13-56 [facility] CO2 [Moles/Vol] 27.0 mmol/L 21.0-32.0 [facility] Globulin (S) [Mass/Vol] 3.5 g/dL 2.2-4.2 [facility] Urea nitrogen/Creatinine [Mass ratio] 13.6 mg/mg 10-20 [facility] Laboratory - Hematology and Cell countsOrdered By: [facility] on 09-23-2023 MCH (RBC) [Entitic mass] 30.7 pg 27.0-32.0 [facility] MCHC (RBC) [Mass/Vol] 33.3 g/dL 32-36 [facility] Nucleated RBC/100 WBC (Bld) [Ratio] 0 % 0-5 [facility] Platelets (Bld) [#/Vol] 293 10*3/uL 150-450 [facility] No Panel InformationOrdered By: Verónica Lopez on 09-23-2023 Estimated Creatinine Clearance Calc 49.72 ml/min [facility] Estimated GFR (MDRD) Amer 58 mL/min >60 [facility] Comment on above: GFR Calc Estimated GFR (MDRD) Non-Af Amer 48 mL/min >60 [facility] Comment on above: Non- GFR Calc Platelet mean volume Doug-Ec ker (Bld) [Entitic vol]Ordered By: Verónica Lopez on 09-23-2023 Platelet mean volume (Bld) [Entitic vol] 9.7 fL 6.2-12.0 [facility] RBC Auto (Bld) [#/Vol]Ordere d By: Verónica Lopez on 09-23-2023 RBC (Bld) [#/Vol] 4.85 10*6/uL 4.2-5.4 [facility] Serum or plasma calcium giovany urement (mass/volume)Ordered By: Verónica Lopez on 09-23-2023 Calcium [Mass/Vol] 9.8 mg/dL 8.5-10.1 [facility] Serum or plasma creatinine m easurement (mass/volume)Ordered By: Verónica Lopez on 09-23-2023 Creatinine [Mass/Vol] 1.18 mg/dL 0.55-1.02 [facility] Comment on above: The validity of the calculated GFR & GFRAA in patients over 70 years has not been determined. Clinical correlation is essential. Serum or plasma urea nitroge n measurement (mass/volume)Ordered By: Verónica Lopez on 09-23-2023 Urea nitrogen [Mass/Vol] 16 mg/dL 7-18 [facility] Thin prep Papanicolaou smear with manual screeningOrdered By: Verónica Lopez on 09-23-2023 Thin prep Papanicolaou smear with manual screening 4.0 g/dL 3.2-5.0 [facility] Thin prep Papanicolaou smear with manual screening 16 U/L 15-37 [facility] Thin prep Papanicolaou smear with manual screening 4 5-15 [facility] Basophil percentageOrdered B y: Ashli Rosado on 08-26-2023 Chloride [Moles/Vol] 105 mmol/L 98-107 [facility] Glucose [Mass/Vol] 83 mg/dL 74-106 [facility] Potassium [Moles/Vol] 3.8 mmol/L 3.5-5.1 [facility] Sodium [Moles/Vol] 140 mmol/L 136-145 [facility] Laboratory - Chemistry and C hemistry - challengeOrdered By: Ashli Rosado on 08-26-2023 CO2 [Moles/Vol] 30.0 mmol/L 21.0-32.0 [facility] Urea nitrogen/Creatinine [Mass ratio] 23.3 mg/mg 10-20 [facility] No Panel InformationOrdered By: Ashli Rosado on 08-26-2023 Estimated GFR (MDRD) Amer 60 mL/min >60 [facility] Comment on above: GFR Calc Estimated GFR (MDRD) Non-Af Amer 49 mL/min >60 [facility] Comment on above: Non- GFR Calc Serum or plasma calcium giovany urement (mass/volume)Ordered By: Ashli Rosado on 08-26-2023 Calcium [Mass/Vol] 9.7 mg/dL 8.5-10.1 [facility] Serum or plasma creatinine m easurement (mass/volume)Ordered By: Ashli Rosado on 08-26-2023 Creatinine [Mass/Vol] 1.16 mg/dL 0.55-1.02 [facility] Comment on above: The validity of the calculated GFR & GFRAA in patients over 70 years has not been determined. Clinical correlation is essential. Serum or plasma urea nitroge n measurement (mass/volume)Ordered By: Ashli Rosado on 08-26-2023 Urea nitrogen [Mass/Vol] 27 mg/dL 7-18 [facility] Thin prep Papanicolaou smear with manual screeningOrdered By: Ashli Rosado on 08-26-2023 Thin prep Papanicolaou smear with manual screening 5 5-15 [facility] Absolute lymphocyte countOrd ered By: Loan Dias on 07-29-2023 Lymphocytes Auto (Unsp spec) [#/Vol] 2.14 10*3/uL 0.83-4.51 [facility] Basophil percentageOrdered B y: Loan Dias on 07-29-2023 Basophils/100 WBC (Bld) 1.0 % 0-1 [facility] Bilirubin [Mass/Vol] 0.60 mg/dL 0.20-1.00 [facility] Comment on above: For patients on eltr ombopag therapy, use of Dimension [place] TBIL is not recommended. Chloride [Moles/Vol] 105 mmol/L 98-107 [facility] Cholesterol [Mass/Vol] 196 mg/dL <200 [facility] Comment on above: <200 mg/dL Desirable 200-240 mg/dL Borderline >240 mg/dL High Risk Eosinophils/100 WBC (Bld) 2.3 % 0-5 [facility] Glucose [Mass/Vol] 98 mg/dL 74-106 [facility] Neutrophils (Bld) [#/Vol] 4.5 10*3/uL 2.0-7.7 [facility] Neutrophils/100 WBC (Bld) 59.2 % 47-70 [facility] Potassium [Moles/Vol] 3.8 mmol/L 3.5-5.1 [facility] Protein [Mass/Vol] 7.7 g/dL 6.4-8.2 [facility] Sodium [Moles/Vol] 139 mmol/L 136-145 [facility] Triglyceride [Mass/Vol] 128 mg/dL <199 [facility] Comment on above: The drugs N-Acetylcy steine and Metamizole may falsely depress this assay.Serum Triglycerides Reference Interval Normal <150 mg/dL Borderline high 150 - 199 mg/dL High 200 - 499 mg/dL Very High > or = 500 mg/dL WBC (Bld) [#/Vol] 7.7 10*3/uL 4.4-11.0 [facility] Blood erythrocytes count (nu mber/volume)Ordered By: Loan Dias on 07-29-2023 RBC (Bld) [#/Vol] 5.29 10*6/uL 4.2-5.4 [facility] Blood hemoglobin measurement (mass/volume)Ordered By: Loan Dias on 07-29-2023 Hemoglobin (Bld) [Mass/Vol] 16.2 g/dL 12.0-15.0 [facility] Blood lymphocytes/100 leukoc ytesOrdered By: Loan Dias on 07-29-2023 Lymphocytes/100 WBC (Bld) 27.9 % 19-41 [facility] Blood monocytes/100 leukocyt esOrdered By: Loan Dias on 07-29-2023 Monocytes/100 WBC (Bld) 9.1 % 0-10 [facility] Blood platelet mean volumeOr dered By: Loan Dias on 07-29-2023 Platelet mean volume (Bld) [Entitic vol] 9.7 fL 6.2-12.0 [facility] Determination of erythrocyte mean corpuscular volume (MCV)Ordered By: Loan Dias on 07-29-2023 MCV (RBC) [Entitic vol] 93.6 fL 81-99 [facility] Hematocrit Auto (Bld) [Volum e fraction]Ordered By: Loan Dias on 07-29-2023 Hematocrit (Bld) [Volume fraction] 49.5 % 37-47 [facility] Laboratory - Chemistry and C hemistry - challengeOrdered By: Loan Dias on 07-29-2023 ALP [Catalytic activity/Vol] 131 U/L 45-117 [facility] ALT [Catalytic activity/Vol] 60 U/L 13-56 [facility] CO2 [Moles/Vol] 27.0 mmol/L 21.0-32.0 [facility] Globulin (S) [Mass/Vol] 3.4 g/dL 2.2-4.2 [facility] Urea nitrogen/Creatinine [Mass ratio] 13.9 mg/mg 10-20 [facility] Laboratory - Hematology and Cell countsOrdered By: Loan Dias on 07-29-2023 Erythrocyte distribution width (RBC) [Entitic vol] 45.1 fL 35.1-43.9 [facility] Erythrocyte distribution width (RBC) [Ratio] 13.2 % 11.6-14.6 [facility] Immature granulocytes/100 WBC (Bld) 0.500 % 0.0-0.9 [facility] Comment on above: IG% - Immature Granu locytes (promyelocytes, myelocytes and metamyelocytes) > 1% indicates that a LEFT SHIFT is Present. MCH (RBC) [Entitic mass] 30.6 pg 27.0-32.0 [facility] Nucleated RBC/100 WBC (Bld) [Ratio] 0 % 0-5 [facility] MCHC Auto (RBC) [Mass/Vol]Or dered By: Loan Dias on 07-29-2023 MCHC (RBC) [Mass/Vol] 32.7 g/dL 32-36 [facility] No Panel InformationOrdered By: Loan Dias on 07-29-2023 Estimated GFR (MDRD) Amer 70 mL/min >60 [facility] Comment on above: GFR Calc Estimated GFR (MDRD) Non-Af Amer 58 mL/min >60 [facility] Comment on above: Non- GFR Calc Thyroid Stimulating Hormone (TSH) 3.71 uIU/mL 0.358-3.74 [facility] Platelets bldOrdered By: Cirilo Dias on 07-29-2023 Platelets (Bld) [#/Vol] 361 10*3/uL 150-450 [facility] Serum or plasma albumin giovany urement (mass/volume)Ordered By: Loan Dias on 07-29-2023 Albumin [Mass/Vol] 4.3 g/dL 3.2-5.0 [facility] Serum or plasma albumin/glob ulin mass ratioOrdered By: Loan Dias on 07-29-2023 Albumin/Globulin [Mass ratio] 1.3 {ratio} 0.9-2.4 [facility] Serum or plasma calcium giovany urement (mass/volume)Ordered By: Loan Dias on 07-29-2023 Calcium [Mass/Vol] 9.9 mg/dL 8.5-10.1 [facility] Serum or plasma cholesterol in HDL measurement (mass/volume)Ordered By: Loan Dias on 07-29-2023 Cholesterol in HDL [Mass/Vol] 52 mg/dL >40 [facility] Comment on above: The drugs N-Acetylcy steine and Metamizole may falsely depress this assay. Reference Range HDL <40 mg/dL Low HDL Cholesterol HDL >or= 60 mg/dL High HDL Cholesterol Serum or plasma cholesterol in VLDL measurement (mass/volume)Ordered By: Loan Dias on 07-29-2023 Cholesterol in VLDL [Mass/Vol] 26 mg/dL 5-40 [facility] Serum or plasma creatinine m easurement (mass/volume)Ordered By: Loan Dias on 07-29-2023 Creatinine [Mass/Vol] 1.01 mg/dL 0.55-1.02 [facility] Comment on above: The validity of the calculated GFR & GFRAA in patients over 70 years has not been determined. Clinical correlation is essential. Serum or plasma low density lipoprotein (LDL) cholesterol measurement (mass/volume)Ordered By: Loan Dias on 07-29-2023 Cholesterol in LDL [Mass/Vol] 118 mg/dL 0-130 [facility] Serum or plasma urea nitroge n measurement (mass/volume)Ordered By: Loan Dias on 07-29-2023 Urea nitrogen [Mass/Vol] 14 mg/dL 7-18 [facility] Thin prep Papanicolaou smear with manual screeningOrdered By: Lona Dias on 07-29-2023 Thin prep Papanicolaou smear with manual screening 33 U/L 15-37 [facility] Thin prep Papanicolaou smear with manual screening 7 5-15 [facility] Basophil percentageOrdered B y: Dia Tobin on 03-14-2023 Creatinine [Mass/Vol] 1.2 mg/dL 0.55-1.02 [facility] Laboratory - Chemistry and C hemistry - challengeOrdered By: Dia Tobin on 03-14-2023 GFR/1.73 sq M.predicted among non-blacks MDRD (S/P/Bld) [Vol rate/Area] 49.0000 mL/min/{1.73_m2} >60 [facility] Absolute lymphocyte countOrd ered By: Verónica Lopez on 11-05-2022 Lymphocytes Auto (Unsp spec) [#/Vol] 1.50 10*3/uL 0.83-4.51 [facility] Basophil percentageOrdered B y: Verónica Lopez on 11-05-2022 Basophils/100 WBC (Bld) 0.9 % 0-1 [facility] Bilirubin [Mass/Vol] 0.40 mg/dL 0.20-1.00 [facility] Comment on above: For patients on eltr ombopag therapy, use of Dimension [place] TBIL is not recommended. Chloride [Moles/Vol] 108 mmol/L 98-107 [facility] Eosinophils/100 WBC (Bld) 2.5 % 0-5 [facility] Glucose [Mass/Vol] 104 mg/dL 74-106 [facility] Comment on above: Fasting Glucose resu lt from 100 to 125 mg/dL suggests IMPAIRED HOMEOSTASIS per A.D.A. criteria. Neutrophils (Bld) [#/Vol] 4.5 10*3/uL 2.0-7.7 [facility] Neutrophils/100 WBC (Bld) 66.8 % 47-70 [facility] Potassium [Moles/Vol] 3.8 mmol/L 3.5-5.1 [facility] Protein [Mass/Vol] 7.4 g/dL 6.4-8.2 [facility] Sodium [Moles/Vol] 143 mmol/L 136-145 [facility] WBC (Bld) [#/Vol] 6.8 10*3/uL 4.4-11.0 [facility] Blood erythrocytes count (nu mber/volume)Ordered By: Verónica Lopez on 11-05-2022 RBC (Bld) [#/Vol] 5.04 10*6/uL 4.2-5.4 [facility] Blood hemoglobin measurement (mass/volume)Ordered By: Verónica Lopez on 11-05-2022 Hemoglobin (Bld) [Mass/Vol] 15.5 g/dL 12.0-15.0 [facility] Blood lymphocytes/100 leukoc ytesOrdered By: Verónica Lopez on 11-05-2022 Lymphocytes/100 WBC (Bld) 22.2 % 19-41 [facility] Blood monocytes/100 leukocyt esOrdered By: Verónica Lopez on 11-05-2022 Monocytes/100 WBC (Bld) 7.0 % 0-10 [facility] Blood platelet mean volumeOr dered By: Verónica Lopez on 11-05-2022 Platelet mean volume (Bld) [Entitic vol] 9.3 fL 6.2-12.0 [facility] Determination of erythrocyte mean corpuscular volume (MCV)Ordered By: Verónica Lopez on 11-05-2022 MCV (RBC) [Entitic vol] 93.5 fL 81-99 [facility] Hematocrit Auto (Bld) [Volum e fraction]Ordered By: Verónica Lopez on 11-05-2022 Hematocrit (Bld) [Volume fraction] 47.1 % 37-47 [facility] Laboratory - Chemistry and C hemistry - challengeOrdered By: Verónica Lopze on 11-05-2022 ALP [Catalytic activity/Vol] 108 U/L 45-117 [facility] ALT [Catalytic activity/Vol] 26 U/L 13-56 [facility] CO2 [Moles/Vol] 28.0 mmol/L 21.0-32.0 [facility] Globulin (S) [Mass/Vol] 3.2 g/dL 2.2-4.2 [facility] Urea nitrogen/Creatinine [Mass ratio] 20.2 mg/mg 10-20 [facility] Laboratory - Hematology and Cell countsOrdered By: Verónica Lopez on 11-05-2022 Erythrocyte distribution width (RBC) [Entitic vol] 44.3 fL 35.1-43.9 [facility] Erythrocyte distribution width (RBC) [Ratio] 13.1 % 11.6-14.6 [facility] Immature granulocytes/100 WBC (Bld) 0.600 % 0.0-0.9 [facility] Comment on above: IG% - Immature Granu locytes (promyelocytes, myelocytes and metamyelocytes) > 1% indicates that a LEFT SHIFT is Present. MCH (RBC) [Entitic mass] 30.8 pg 27.0-32.0 [facility] Nucleated RBC/100 WBC (Bld) [Ratio] 0 % 0-5 [facility] MCHC Auto (RBC) [Mass/Vol]Or dered By: Verónica Lopez on 11-05-2022 MCHC (RBC) [Mass/Vol] 32.9 g/dL 32-36 [facility] No Panel InformationOrdered By: Verónica Lopez on 11-05-2022 Estimated Creatinine Clearance Calc 47.38 ml/min [facility] Estimated GFR (MDRD) Amer 76 mL/min >60 [facility] Comment on above: GFR Calc Estimated GFR (MDRD) Non-Af Amer 63 mL/min >60 [facility] Comment on above: Non- GFR Calc Platelets bldOrdered By: Erica Lopez on 11-05-2022 Platelets (Bld) [#/Vol] 318 10*3/uL 150-450 [facility] Serum or plasma albumin giovany urement (mass/volume)Ordered By: Verónica Lopez on 11-05-2022 Albumin [Mass/Vol] 4.2 g/dL 3.2-5.0 [facility] Serum or plasma albumin/glob ulin mass ratioOrdered By: Verónica Lopez on 11-05-2022 Albumin/Globulin [Mass ratio] 1.3 {ratio} 0.9-2.4 [facility] Serum or plasma calcium giovany urement (mass/volume)Ordered By: Vernóica Lopez on 11-05-2022 Calcium [Mass/Vol] 9.6 mg/dL 8.5-10.1 [facility] Serum or plasma creatinine m easurement (mass/volume)Ordered By: Verónica Lopez on 11-05-2022 Creatinine [Mass/Vol] 0.94 mg/dL 0.55-1.02 [facility] Comment on above: The validity of the calculated GFR & GFRAA in patients over 70 years has not been determined. Clinical correlation is essential. Serum or plasma urea nitroge n measurement (mass/volume)Ordered By: Verónica Lopez on 11-05-2022 Urea nitrogen [Mass/Vol] 19 mg/dL 7-18 [facility] Thin prep Papanicolaou smear with manual screeningOrdered By: Verónica Lopez on 11-05-2022 Thin prep Papanicolaou smear with manual screening 18 U/L 15-37 [facility] Thin prep Papanicolaou smear with manual screening 7 5-15 [facility] Absolute lymphocyte counton 04-25-2022 Lymphocytes Auto (Unsp spec) [#/Vol] 1.41 10*3/uL 0.83-4.51 [facility] Work Phone: Basophil percentageon 2021 Basophils/100 WBC (Bld) 1.0 % 0-1 [facility] Work Phone: Bilirubin [Mass/Vol] 0.40 mg/dL 0.20-1.00 [facility] Work Phone: Comment on above: For patients on eltr ombopag therapy, use of Dimension [place] TBIL is not recommended. Chloride [Moles/Vol] 110 mmol/L 98-107 [facility] Work Phone: Eosinophils/100 WBC (Bld) 3.6 % 0-5 [facility] Work Phone: Glucose [Mass/Vol] 93 mg/dL 74-106 [facility] Work Phone: Neutrophils (Bld) [#/Vol] 3.6 10*3/uL 2.0-7.7 [facility] Work Phone: Neutrophils/100 WBC (Bld) 62.0 % 47-70 [facility] Work Phone: Potassium [Moles/Vol] 4.0 mmol/L 3.5-5.1 [facility] Work Phone: Protein [Mass/Vol] 6.9 g/dL 6.4-8.2 [facility] Work Phone: Sodium [Moles/Vol] 145 mmol/L 136-145 [facility] Work Phone: WBC (Bld) [#/Vol] 5.8 10*3/uL 4.4-11.0 [facility] Work Phone: Blood erythrocytes count (nu mber/volume)on 04-25-2022 RBC (Bld) [#/Vol] 4.52 10*6/uL 4.2-5.4 [facility] Work Phone: Blood hemoglobin measurement (mass/volume)on 04-25-2022 Hemoglobin (Bld) [Mass/Vol] 14.2 g/dL 12.0-15.0 [facility] Work Phone: Blood lymphocytes/100 leukoc yteson 04-25-2022 Lymphocytes/100 WBC (Bld) 24.3 % 19-41 [facility] Work Phone: Blood monocytes/100 leukocyt eson 04-25-2022 Monocytes/100 WBC (Bld) 8.1 % 0-10 [facility] Work Phone: Blood platelet mean volumeon 04-25-2022 Platelet mean volume (Bld) [Entitic vol] 9.2 fL 6.2-12.0 [facility] Work Phone: [phone] Determination of erythrocyte mean corpuscular volume (MCV)on 04-25-2022 MCV (RBC) [Entitic vol] 96.9 fL 81-99 [facility] Work Phone: [phone] Hematocrit Auto (Bld) [Volum e fraction]on 04-25-2022 Hematocrit (Bld) [Volume fraction] 43.8 % 37-47 [facility] Work Phone: [phone] Laboratory - Chemistry and C hemistry - challengeon 04-25-2022 ALP [Catalytic activity/Vol] 115 U/L 45-117 [facility] Work Phone: ALT [Catalytic activity/Vol] 29 U/L 13-56 [facility] Work Phone: [phone] CO2 [Moles/Vol] 31.0 mmol/L 21.0-32.0 [facility] Work Phone: [phone] Globulin (S) [Mass/Vol] 3.2 g/dL 2.2-4.2 [facility] Work Phone: [phone] Urea nitrogen/Creatinine [Mass ratio] 17.5 mg/mg 10-20 [facility] Work Phone: Laboratory - Hematology and Cell countson 04-25-2022 Erythrocyte distribution width (RBC) [Entitic vol] 47.6 fL 35.1-43.9 [facility] Work Phone: [phone] Erythrocyte distribution width (RBC) [Ratio] 13.3 % 11.6-14.6 [facility] Work Phone: Immature granulocytes/100 WBC (Bld) 1.000 % 0.0-0.9 [facility] Work Phone: Comment on above: IG% - Immature Granu locytes (promyelocytes, myelocytes and metamyelocytes) > 1% indicates that a LEFT SHIFT is Present. MCH (RBC) [Entitic mass] 31.4 pg 27.0-32.0 [facility] Work Phone: Nucleated RBC/100 WBC (Bld) [Ratio] 0 % 0-5 [facility] Work Phone: MCHC Auto (RBC) [Mass/Vol]on 04-25-2022 MCHC (RBC) [Mass/Vol] 32.4 g/dL 32-36 [facility] Work Phone: No Panel Informationon 04-25 Estimated Creatinine Clearance Calc 43.84 ml/min [facility] Work Phone: Estimated GFR (MDRD) Amer 69 mL/min >60 [facility] Work Phone: Comment on above: GFR Calc Estimated GFR (MDRD) Non-Af Amer 57 mL/min >60 [facility] Work Phone: Comment on above: Non- GFR Calc Platelets bldon 04-25-2022 Platelets (Bld) [#/Vol] 250 10*3/uL 150-450 [facility] Work Phone: Serum or plasma albumin giovany urement (mass/volume)on 04-25-2022 Albumin [Mass/Vol] 3.7 g/dL 3.2-5.0 [facility] Work Phone: Serum or plasma albumin/glob ulin mass ratioon 04-25-2022 Albumin/Globulin [Mass ratio] 1.2 {ratio} 0.9-2.4 [facility] Work Phone: Serum or plasma calcium giovany urement (mass/volume)on 09-07-2022 Calcium [Mass/Vol] 9.6 mg/dL 8.5-10.1 [facility] Work Phone: [phone] Serum or plasma creatinine m easurement (mass/volume)on 04-25-2022 Creatinine [Mass/Vol] 1.03 mg/dL 0.55-1.02 [facility] Work Phone: [phone] Comment on above: The validity of the calculated GFR & GFRAA in patients over 70 years has not been determined. Clinical correlation is essential. Serum or plasma urea nitroge n measurement (mass/volume)on 04-25-2022 Urea nitrogen [Mass/Vol] 18 mg/dL 7-18 [facility] Work Phone: [phone] Thin prep Papanicolaou smear with manual screeningon 04-25-2022 Thin prep Papanicolaou smear with manual screening 13 U/L 15-37 [facility] Work Phone: [phone] Thin prep Papanicolaou smear with manual screening 4 5-15 [facility] Work Phone: [phone] Absolute lymphocyte counton 01-21-2022 Lymphocytes Auto (Unsp spec) [#/Vol] 1.05 10*3/uL 0.83-4.51 [facility] Work Phone: Basophil percentageon 2021 Basophils/100 WBC (Bld) 0.9 % 0-1 [facility] Work Phone: Chloride [Moles/Vol] 111 mmol/L 98-107 [facility] Work Phone: Eosinophils/100 WBC (Bld) 2.1 % 0-5 [facility] Work Phone: Glucose [Mass/Vol] 98 mg/dL 74-106 [facility] Work Phone: Neutrophils (Bld) [#/Vol] 3.7 10*3/uL 2.0-7.7 [facility] Work Phone: Neutrophils/100 WBC (Bld) 69.1 % 47-70 [facility] Work Phone: Potassium [Moles/Vol] 3.8 mmol/L 3.5-5.1 [facility] Work Phone: Sodium [Moles/Vol] 143 mmol/L 136-145 [facility] Work Phone: WBC (Bld) [#/Vol] 5.3 10*3/uL 4.4-11.0 [facility] Work Phone: Blood erythrocytes count (nu mber/volume)on 01-21-2022 RBC (Bld) [#/Vol] 4.99 10*6/uL 4.2-5.4 [facility] Work Phone: [phone] Blood hemoglobin measurement (mass/volume)on 01-21-2022 Hemoglobin (Bld) [Mass/Vol] 15.2 g/dL 12.0-15.0 [facility] Work Phone: Blood lymphocytes/100 leukoc yteson 01-21-2022 Lymphocytes/100 WBC (Bld) 19.8 % 19-41 [facility] Work Phone: Blood monocytes/100 leukocyt eson 01-21-2022 Monocytes/100 WBC (Bld) 7.7 % 0-10 [facility] Work Phone: Blood platelet mean volumeon 01-21-2022 Platelet mean volume (Bld) [Entitic vol] 9.4 fL 6.2-12.0 [facility] Work Phone: [phone] Determination of erythrocyte mean corpuscular volume (MCV)on 01-21-2022 MCV (RBC) [Entitic vol] 93.2 fL 81-99 [facility] Work Phone: Hematocrit Auto (Bld) [Volum e fraction]on 01-21-2022 Hematocrit (Bld) [Volume fraction] 46.5 % 37-47 [facility] Work Phone: Laboratory - Chemistry and C hemistry - challengeon 01-21-2022 CO2 [Moles/Vol] 26.0 mmol/L 21.0-32.0 [facility] Work Phone: [phone] Urea nitrogen/Creatinine [Mass ratio] 15.0 mg/mg 10-20 [facility] Work Phone: Laboratory - Hematology and Cell countson 01-21-2022 Erythrocyte distribution width (RBC) [Entitic vol] 43.1 fL 35.1-43.9 [facility] Work Phone: Erythrocyte distribution width (RBC) [Ratio] 12.5 % 11.6-14.6 [facility] Work Phone: Immature granulocytes/100 WBC (Bld) 0.400 % 0.0-0.9 [facility] Work Phone: Comment on above: IG% - Immature Granu locytes (promyelocytes, myelocytes and metamyelocytes) > 1% indicates that a LEFT SHIFT is Present. MCH (RBC) [Entitic mass] 30.5 pg 27.0-32.0 [facility] Work Phone: Nucleated RBC/100 WBC (Bld) [Ratio] 0 % 0-5 [facility] Work Phone: MCHC Auto (RBC) [Mass/Vol]on 01-21-2022 MCHC (RBC) [Mass/Vol] 32.7 g/dL 32-36 [facility] Work Phone: No Panel Informationon 01-21 Troponin I High Sensitivity 4 pg/mL 3.0-54.0 [facility] Work Phone: Comment on above: Please Note: New Macy t Units and Gender Specific Reference Ranges. For more information see Policy Stat Procedure [place] High Sensitivity Troponin (TNIH) and attachments. Estimated Creatinine Clearance Calc 41.19 ml/min [facility] Work Phone: Estimated GFR (MDRD) Amer 71 mL/min >60 [facility] Work Phone: Comment on above: GFR Calc Estimated GFR (MDRD) Non-Af Amer 59 mL/min >60 [facility] Work Phone: Comment on above: Non- GFR Calc Platelets bldon 01-21-2022 Platelets (Bld) [#/Vol] 272 10*3/uL 150-450 [facility] Work Phone: Serum or plasma calcium giovany urement (mass/volume)on 01-21-2022 Calcium [Mass/Vol] 9.6 mg/dL 8.5-10.1 [facility] Work Phone: Serum or plasma creatinine m easurement (mass/volume)on 01-21-2022 Creatinine [Mass/Vol] 1.00 mg/dL 0.55-1.02 [facility] Work Phone: Comment on above: The validity of the calculated GFR & GFRAA in patients over 70 years has not been determined. Clinical correlation is essential. Serum or plasma urea nitroge n measurement (mass/volume)on 01-21-2022 Urea nitrogen [Mass/Vol] 15 mg/dL 7-18 [facility] Work Phone: Thin prep Papanicolaou smear with manual screeningon 01-21-2022 Thin prep Papanicolaou smear with manual screening 6 5-15 [facility] Work Phone: Absolute lymphocyte counton 10-18-2021 Lymphocytes Auto (Unsp spec) [#/Vol] 1.17 10*3/uL 0.83-4.51 [facility] Work Phone: Basophil percentageon 2021 Basophils/100 WBC (Bld) 1.2 % 0-1 [facility] Work Phone: Bilirubin [Mass/Vol] 0.60 mg/dL 0.20-1.00 [facility] Work Phone: Comment on above: For patients on eltr ombopag therapy, use of Dimension [place] TBIL is not recommended. Chloride [Moles/Vol] 108 mmol/L 98-107 [facility] Work Phone: [phone] Eosinophils/100 WBC (Bld) 2.8 % 0-5 [facility] Work Phone: Glucose [Mass/Vol] 93 mg/dL 74-106 [facility] Work Phone: Neutrophils (Bld) [#/Vol] 3.1 10*3/uL 2.0-7.7 [facility] Work Phone: Neutrophils/100 WBC (Bld) 62.0 % 47-70 [facility] Work Phone: Potassium [Moles/Vol] 4.0 mmol/L 3.5-5.1 [facility]: Protein [Mass/Vol] 6.7 g/dL 6.4-8.2 [facility] Work Phone: Sodium [Moles/Vol] 142 mmol/L 136-145 [facility] Work Phone: WBC (Bld) [#/Vol] 4.9 10*3/uL 4.4-11.0 [facility] Work Phone: Blood erythrocytes count (nu mber/volume)on 10-18-2021 RBC (Bld) [#/Vol] 4.59 10*6/uL 4.2-5.4 [facility] Work Phone: Blood hemoglobin measurement (mass/volume)on 10-18-2021 Hemoglobin (Bld) [Mass/Vol] 14.1 g/dL 12.0-15.0 [facility] Work Phone: Blood lymphocytes/100 leukoc yteson 10-18-2021 Lymphocytes/100 WBC (Bld) 23.8 % 19-41 [facility] Work Phone: Blood monocytes/100 leukocyt eson 10-18-2021 Monocytes/100 WBC (Bld) 9.8 % 0-10 [facility] Work Phone: Blood platelet mean volumeon 10-18-2021 Platelet mean volume (Bld) [Entitic vol] 9.1 fL 6.2-12.0 [facility] Work Phone: Determination of erythrocyte mean corpuscular volume (MCV)on 10-18-2021 MCV (RBC) [Entitic vol] 91.9 fL 81-99 [facility] Work Phone: [phone] Hematocrit Auto (Bld) [Volum e fraction]on 10-18-2021 Hematocrit (Bld) [Volume fraction] 42.2 % 37-47 [facility] Work Phone: [phone] Laboratory - Chemistry and C hemistry - challengeon 10-18-2021 ALP [Catalytic activity/Vol] 109 U/L 45-117 [facility] Work Phone: [phone] ALT [Catalytic activity/Vol] 26 U/L 13-56 [facility] Work Phone: CO2 [Moles/Vol] 27.0 mmol/L 21.0-32.0 [facility] Work Phone: [phone] Globulin (S) [Mass/Vol] 3.0 g/dL 2.2-4.2 [facility] Work Phone: [phone] Urea nitrogen/Creatinine [Mass ratio] 21.4 mg/mg 10-20 [facility] Work Phone: [phone] Laboratory - Hematology and Cell countson 10-18-2021 Erythrocyte distribution width (RBC) [Entitic vol] 46.1 fL 35.1-43.9 [facility] Work Phone: [phone] Erythrocyte distribution width (RBC) [Ratio] 13.6 % 11.6-14.6 [facility] Work Phone: [phone] Immature granulocytes/100 WBC (Bld) 0.400 % 0.0-0.9 [facility] Work Phone: [phone] Comment on above: IG% - Immature Granu locytes (promyelocytes, myelocytes and metamyelocytes) > 1% indicates that a LEFT SHIFT is Present. MCH (RBC) [Entitic mass] 30.7 pg 27.0-32.0 [facility] Work Phone: [phone] Nucleated RBC/100 WBC (Bld) [Ratio] 0 % 0-5 [facility] Work Phone: [phone] MCHC Auto (RBC) [Mass/Vol]on 10-18-2021 MCHC (RBC) [Mass/Vol] 33.4 g/dL 32-36 [facility] Work [facility]: No Panel Informationon 10-18 Estimated Creatinine Clearance Calc 48.04 ml/min [facility] Work Phone: Estimated GFR (MDRD) Amer 77 mL/min >60 [facility] Work Phone: Comment on above: GFR Calc Estimated GFR (MDRD) Non-Af Amer 63 mL/min >60 [facility] Work Phone: Comment on above: Non- GFR Calc Platelets bldon 10-18-2021 Platelets (Bld) [#/Vol] 247 10*3/uL 150-450 [facility] Work Phone: Serum or plasma albumin giovany urement (mass/volume)on 10-18-2021 Albumin [Mass/Vol] 3.7 g/dL 3.2-5.0 [facility] Work Phone: Serum or plasma albumin/glob ulin mass ratioon 10-18-2021 Albumin/Globulin [Mass ratio] 1.2 {ratio} 0.9-2.4 [facility] Work Phone: Serum or plasma calcium giovany urement (mass/volume)on 10-18-2021 Calcium [Mass/Vol] 9.4 mg/dL 8.5-10.1 [facility] Work Phone: Serum or plasma creatinine m easurement (mass/volume)on 10-18-2021 Creatinine [Mass/Vol] 0.94 mg/dL 0.55-1.02 [facility] Work Phone: Comment on above: The validity of the calculated GFR & GFRAA in patients over 70 years has not been determined. Clinical correlation is essential. Serum or plasma urea nitroge n measurement (mass/volume)on 10-18-2021 Urea nitrogen [Mass/Vol] 20 mg/dL 7-18 [facility] Work Phone: Thin prep Papanicolaou smear with manual screeningon 10-18-2021 Thin prep Papanicolaou smear with manual screening 16 U/L 15-37 [facility] Work Phone: Thin prep Papanicolaou smear with manual screening 12-31 [facility] Work Phone: CBCon 04-24-2021 Absolute nRBC <0.01 Normal <0.01 [facility] Comment on above: Performed By: #### C RP, RFP, CBC, FERR #### [address] [place] [address] Erythrocyte distribution width (RBC) [Ratio] 13.3 % Normal 11.5-15.0 [facility] Comment on above: Performed By: #### C RP, RFP, CBC, FERR #### [address] [place] [address] Hematocrit (Bld) [Volume fraction] 37.7 % Normal 36.0-46.0 [facility] Comment on above: Performed By: #### C RP, RFP, CBC, FERR #### [address] [place] [address] Hemoglobin (Bld) [Mass/Vol] 12.5 g/dL Normal 11.5-15.5 [facility] Comment on above: Performed By: #### C RP, RFP, CBC, FERR #### [address] [place] [address] MCH 30.4 pG Normal 26.0-34.0 [facility] Comment on above: Performed By: #### C RP, RFP, CBC, FERR #### [address] [place] [address] MCHC (RBC) [Mass/Vol] 33.2 g/dL Normal 30.5-36.0 [facility] Comment on above: Performed By: #### C RP, RFP, CBC, FERR #### [address] [place] [address] MCV (RBC) [Entitic vol] 91.7 fL Normal 80.0-100.0 [facility] Comment on above: Performed By: #### C RP, RFP, CBC, FERR #### [address] [place] [address] Platelet mean volume (Bld) [Entitic vol] 9.5 fL Normal 9.0-12.7 [facility] Comment on above: Performed By: #### C RP, RFP, CBC, FERR #### [address] [place] [address] Platelets (Bld) [#/Vol] 402 10*3/uL High 150-400 [facility] Comment on above: Performed By: #### C RP, RFP, CBC, FERR #### [address] [place] [address] RBC (Bld) [#/Vol] 4.11 10*6/uL Normal 3.90-5.20 [facility] Comment on above: Performed By: #### C RP, RFP, CBC, FERR #### [address] [place] [address] WBC (Bld) [#/Vol] 7.66 10*3/uL Normal 3.70-11.00 [facility] Comment on above: Performed By: #### C RP, RFP, CBC, FERR #### [address] [place] [address] CNDSon 04-24-2021 DS HNO ID: [id number] Author: Ty Pulido MD Service: General Internal [...] Pulido MD Primary Care Provider: Loan Dias APRN.CNP My Medical Team Members: Treatment Team: Attending [...] No pending results Discharge Disposition Discharge Disposition: Alf Facility - Less than 30 Days Activity When You Leave the Hospital Resume pre-hospital activity Diet Instructions Resume your pre-hospital diet Follow Up Appointments Follow-Up Appointment When: In 2 weeks Patient/Parents to call for appointment?: Yes Loan Dias APRN.[facility] [phone] [address] [phone] PCP Requested Referral Additional Provider to Provider [...] the time of discharge, [facility] Treatment Team: Attending Provider: Ty Pulido MD Consulting: Rolo Oates MD Consulting: Ty Pulido MD Transitions of Care Critical Issues: Discharged on 2 L nasal cannula oxygen LABS AND PROCEDURES PENDING AT DISCHARGE: No pending results. FOLLOW-UP APPOINTMENTS ALREADY SCHEDULED WITH A [facility] PROVIDER: No future appointments. ALLERGIES Allergen Reactions [...] mg CR tabl (more content not included)... [facility] CONSULT PROGobecki 04-24-2021 CONSULT PROG HNO ID: [id number] Author: Rosendo Landin V, MD Service: Infectious [...] Time Signed: April 24, 2021 12:54 PM [facility] NURSING PROGon 04-24-2021 NURSING PROG HNO ID: [id number] Author: Shawnee Barrett RN Service: ? Author Type: Registered Nurse Type: Nursing Progress Note Filed: 04/24/2021 4:20 PM Note Text: Nursing Progress Note Patient Name: Bo Jacob Patient Location: [id number] 2 Daily Note: 729: Assuming care of pt. Pt is resting in bed, daughter is at bedside.Pt is AANDOx3, 2L NC in place. Monitor maintained: SR. Port to left chest dressing DANDI, blood return present. Assessment as charted. 1400: Dr. Pulido in to see pt-OK to D/C to [facility] today at 4pm 1500: Port deaccessed. Monitor removed. Pt dressed and belongings packed. 1615: Ambulance here with stretcher to transport pt. Chart copied and sent with pt-report called to [facility]. This note was completed by: Shawnee Barrett [facility] NURSING PROG HNO ID: [id number] Author: Cherelle Howe RN Service: Nursing Author Type: Registered Nurse Type: Nursing Progress Note Filed: 04/24/2021 3:10 AM Note Text: Nursing Progress Note Patient Name: Bo Jacob Patient Location: [id number] 2 Daily Note: 1929 Assumed care of [...] No other patient complaints at this time. 5 Patient's daughter called stating she'd like to speak with patient and that it was urgent regarding her 's critical condition. I woke patient, and told her to return her daughter's call. This note was completed by: Cherelle Howe Normal [facility] Renal Function Panelon 04-24 Albumin [Mass/Vol] 3.5 g/dL Low 4.0-4.9 [facility] Comment on above: Performed By: #### C RP, RFP, CBC, FERR #### [facility] [address] [facility] [place] [address] Anion gap [Moles/Vol] 7 mmol/L Normal 0-15 [facility] Comment on above: Performed By: #### C RP, RFP, CBC, FERR #### [facility] [address] [facility] [place] [address] Calcium [Mass/Vol] 8.8 mg/dL Normal 8.5-10.2 [facility] Comment on above: Result Comment: Felipe mmended reference range provided for this age range is published by the instrument adjunct writing instructor. Adult reference ranges have been verified. Performed By: #### C RP, RFP, CBC, FERR #### [facility] [address] [facility] [place] [address] Chloride [Moles/Vol] 105 mmol/L Normal 97-105 [facility] Comment on above: Performed By: #### C RP, RFP, CBC, FERR #### [facility] [address] [facility] [place] [address] CO2 [Moles/Vol] 25 mmol/L Normal 22-30 [facility] Comment on above: Performed By: #### C RP, RFP, CBC, FERR #### [facility] [address] [facility] [place] [address] Creatinine [Mass/Vol] 0.76 mg/dL Normal 0.58-0.96 [facility] Comment on above: Performed By: #### C RP, RFP, CBC, FERR #### [facility] [address] [facility] [place] [address] eGFR- Amer. >60 Normal >60 [facility] Comment on above: Performed By: #### C RP, RFP, CBC, FERR #### [facility] [address] [facility] [place] [address] eGFR-All Other Races >60 Normal >60 [facility] Comment on above: Result Comment: eGFR [...] #### C RP, RFP, CBC, FERR #### [facility] [address] [facility] [place] [address] Glucose [Mass/Vol] 95 mg/dL Normal 74-99 [facility] Comment on above: Performed By: #### C RP, RFP, CBC, FERR #### [facility] [address] [facility] [place] [address] Phosphate [Mass/Vol] 2.6 mg/dL Normal 2.5-4.5 [facility] Comment on above: Performed By: #### C RP, RFP, CBC, FERR #### [facility] [address] [facility] [place] [address] Potassium [Moles/Vol] 3.6 mmol/L Low 3.7-5.1 [facility] Comment on above: Performed By: #### C RP, RFP, CBC, FERR #### [facility] [address] [facility] [place] [address] Sodium [Moles/Vol] 137 mmol/L Normal 136-144 [facility] Comment on above: Performed By: #### C RP, RFP, CBC, FERR #### [facility] [address] [facility] [place] [address] Urea nitrogen [Mass/Vol] 18 mg/dL Normal 7-21 [facility] Comment on above: Result Comment: Felipe mmended reference range provided for this age range is published by the instrument adjunct writing instructor. Adult reference ranges have been verified. Performed By: #### C RP, RFP, CBC, FERR #### [facility] [address] [facility] [place] [address] THERAPY NTon 04-24-2021 THERAPY NT HNO ID: [id number] Author: Aj Lara PTA Service: Physical Therapy Author Type: Tumblers Supervisor Type: Therapy (PT/OT/Speech/Resp) Filed: 04/24/2021 2:37 PM Note Text: Attestation signed by Ashwini Diallo, PT at 04/25/2021 6:33 AM I reviewed and agree with the documentation corresponding to this therapy visit. SIGNATURE: Ashwini Diallo, PT DATE: April 25, 2021 TIME: 6:33 AM PHYSICAL THERAPY MISSED VISIT SERVICE DATE: 04/24/2021 SERVICE TIME: 1435 to 1435 ROOM: [id number]-1868-02 Attempted Treatment. Patient not seen due to Sleeping. SIGNATURE: Aj Lara PTA PATIENT NAME: Bo Jacob DATE: April 24, 2021 TIME: 2:35 PM Per RN pt resting, this AM and pt is being DCd today at 1600. [facility] THERAPY NT HNO ID: [id number] Author: Aj Lara PTA Service: Physical Therapy Author Type: Tumblers Supervisor Type: Therapy (PT/OT/Speech/Resp) Filed: 04/24/2021 8:12 AM Note Text: Attestation signed by Ashwini Diallo PT at 04/24/2021 9:24 AM I reviewed and agree with the documentation corresponding to this therapy visit. SIGNATURE: Ashwini Diallo, PT DATE: April 24, 2021 TIME: 9:24 AM PHYSICAL THERAPY MISSED VISIT SERVICE DATE: 04/24/2021 SERVICE TIME: 0800 to 0800 ROOM: [id number] Attempted Treatment. Patient not seen due to Another service at bedside. SIGNATURE: Aj Lara PTA PATIENT NAME: Bo Jacob DATE: April 24, 2021 TIME: 8:09 AM RN at bed side and asked that pt not be seen for PT at this time due to pts is in hospital and not doing well, pt on phone with Dr now. Will check back in PM. Normal [facility] C-Reactive Proteinon 021 C-Reactive Protein 1.4 mg/dL High <0.9 [facility] Comment on above: Performed By: #### C RP, RFP, CBC, FERR #### [address] [place] [address] CBCon 04-23-2021 Absolute nRBC <0.01 Normal <0.01 [facility] Comment on above: Performed By: #### C RP, RFP, CBC, FERR #### [address] [place] [address] Erythrocyte distribution width (RBC) [Ratio] 13.3 % Normal 11.5-15.0 [facility] Comment on above: Performed By: #### C RP, RFP, CBC, FERR #### [address] [place] [address] Hematocrit (Bld) [Volume fraction] 36.4 % Normal 36.0-46.0 [facility] Comment on above: Performed By: #### C RP, RFP, CBC, FERR #### [address] [place] [address] Hemoglobin (Bld) [Mass/Vol] 12.1 g/dL Normal 11.5-15.5 [facility] Comment on above: Performed By: #### C RP, RFP, CBC, FERR #### [address] [place] [address] MCH 30.3 pG Normal 26.0-34.0 [facility] Comment on above: Performed By: #### C RP, RFP, CBC, FERR #### [address] [place] [address] MCHC (RBC) [Mass/Vol] 33.2 g/dL Normal 30.5-36.0 [facility] Comment on above: Performed By: #### C RP, RFP, CBC, FERR #### [address] [place] [address] MCV (RBC) [Entitic vol] 91.0 fL Normal 80.0-100.0 [facility] Comment on above: Performed By: #### C RP, RFP, CBC, FERR #### [address] [place] [address] Platelet mean volume (Bld) [Entitic vol] 9.3 fL Normal 9.0-12.7 [facility] Comment on above: Performed By: #### C RP, RFP, CBC, FERR #### [address] [place] [address] Platelets (Bld) [#/Vol] 434 10*3/uL High 150-400 [facility] Comment on above: Performed By: #### C RP, RFP, CBC, FERR #### [address] [place] [address] RBC (Bld) [#/Vol] 4.00 10*6/uL Normal 3.90-5.20 [facility] Comment on above: Performed By: #### C RP, RFP, CBC, FERR #### [address] [place] [address] WBC (Bld) [#/Vol] 6.60 10*3/uL Normal 3.70-11.00 [facility] Comment on above: Performed By: #### C RP, RFP, CBC, FERR #### [address] [place] [address] CONSULT PROGon 04-23-2021 CONSULT PROG HNO ID: [id number] Author: Kishan Maharaj V, MD Service: Pulmonary [...] mg ORAL DAILY (6 AM) phenol 1 [facility] (CHLORASEPTIC) 1 [facility] MUCOUS MEMBRANE (TOPICAL MOUTH AND THROAT) q 2 H PRN sodium chloride 0.65 % 2 [facility] (AYR, OCEAN) 2 [facility] EACH NOSTRIL PRN OBJECTIVE VITAL SIGNS (last [...] -Reviewed most recent radiology report(s). -CXR: see [facility] for results Labs/Diagnostic Tests: Most Recent Labs [...] Function, Amylase, AND Lipase Recent Labs 04/23/21 0604/22/21 0630 04/21/21 0500 ALB 3.2* 3.2* 3.4* Plan of care discussed with: Provider, RN, Patient. This note may have been partially generated using the [employer] voice recognition system and there may be some incorrect words, spellings or punctuation that were not noted in review before signing. SIGNATURE: Pablo Deutsch PA-C DATE: April 23, 2021 TIME: 8:45 AM Phone/Pager - Supervising Staff Physician: Dr. Maharaj Attending Note I have personally performed a face to face assessment of the patient and have reveived the (more content not included)... Normal [facility] Expedited [id number] 04-23-20 21 SARS-CoV-2 (COVID-19) RNA KRISTOFER+probe Ql (Unsp spec) UPPER RESPIRATORY TRACT SWAB Normal [facility] Comment on above: Result Comment: Call ed to and read back by: Nicolasa Wilder RN [facility] 4 [facility] 04/23/21 1831 T Conn Performed By: #### C RP, RFP, CBC, FERR #### [facility] [address] [place] [address] SARS-CoV-2 (COVID-19) RNA KRISTOFER+probe Ql (Unsp spec) Positive for COVID19 (SARS CoV2) by RT-PCR or equivalent method. Critically abnormal Negative for COVID19 (SARS CoV2) by RT-PCR or equivalent method. [facility] Comment on above: Result Comment: If y our test results are positive, you have tested positive for the presence of the virus associated with COVID-19. This is a stressful time and if you are a [facility] patient, we will support you by [...] #### C RP, RFP, CBC, FERR #### [facility] [address] [facility] [address] Ferritinon 04-23-2021 Ferritin [Mass/Vol] 327.4 ng/mL High 14.7-205.1 [facility] Comment on above: Performed By: #### C RP, RFP, CBC, FERR #### [facility] [address] [facility] [place] [address] NURSING PROGon 04-23-2021 NURSING PROG HNO ID: [id number] Author: Derrek Wilder RN Service: ? Author Type: Registered Nurse Type: Nursing Progress Note Filed: 04/23/2021 6:39 PM Note Text: Nursing Progress Note Patient Name: Bo Jacob Patient Location: [id number] 2 Daily Note: 0730 Assumed care pt stable will continue to monitor vitals. Bed in low locked position and call light within reach. 1130 Pt 89% on exertion on 2L NC 1150 Pt 90 % at rest on room air, Pt placed back on 2 L NC pt spo2 93% 1400 Pt and aiden request for pt to go to [facility] 1830 e d tech Conn called lab value covid positive. Pt already known to have covid. This note was completed by: Derrek Wilder Normal [facility] Renal Function Panelon 04-23 Albumin [Mass/Vol] 3.2 g/dL Low 4.0-4.9 [facility] Comment on above: Performed By: #### C RP, RFP, CBC, FERR #### [facility] [address] [facility] [place] [address] Anion gap [Moles/Vol] 9 mmol/L Normal 0-15 [facility] Comment on above: Performed By: #### C RP, RFP, CBC, FERR #### [address] [place] [address] Calcium [Mass/Vol] 8.7 mg/dL Normal 8.5-10.2 [facility] Comment on above: Result Comment: Felipe mmended reference range provided for this age range is published by the instrument adjunct writing instructor. Adult reference ranges have been verified. Performed By: #### C RP, RFP, CBC, FERR #### [address] [place] [address] Chloride [Moles/Vol] 106 mmol/L High 97-105 [facility] Comment on above: Performed By: #### C RP, RFP, CBC, FERR #### [address] [place] [address] CO2 [Moles/Vol] 25 mmol/L Normal 22-30 [facility] Comment on above: Performed By: #### C RP, RFP, CBC, FERR #### [address] [place] [address] Creatinine [Mass/Vol] 0.81 mg/dL Normal 0.58-0.96 [facility] Comment on above: Performed By: #### C RP, RFP, CBC, FERR #### [address] [place] [address] eGFR- Amer. >60 Normal >60 [facility] Comment on above: Performed By: #### C RP, RFP, CBC, FERR #### [facility] [address] [facility] [place] [address] eGFR-All Other Races >60 Normal >60 [facility] Comment on above: Result Comment: eGFR [...] #### C RP, RFP, CBC, FERR #### [address] [place] [address] Glucose [Mass/Vol] 91 mg/dL Normal 74-99 [facility] Comment on above: Performed By: #### C RP, RFP, CBC, FERR #### [address] [place] [address] Phosphate [Mass/Vol] 2.6 mg/dL Normal 2.5-4.5 [facility] Comment on above: Performed By: #### C RP, RFP, CBC, FERR #### [place] [id number] [facility] [place] [address] Potassium [Moles/Vol] 3.7 mmol/L Normal 3.7-5.1 [facility] Comment on above: Performed By: #### C RP, RFP, CBC, FERR #### [address] [place] [address] Sodium [Moles/Vol] 140 mmol/L Normal 136-144 [facility] Comment on above: Performed By: #### C RP, RFP, CBC, FERR #### [address] [place] [address] Urea nitrogen [Mass/Vol] 18 mg/dL Normal 7-21 [facility] Comment on above: Result Comment: Felipe mmended reference range provided for this age range is published by the instrument adjunct writing instructor. Adult reference ranges have been verified. Performed By: #### C RP, RFP, CBC, FERR #### [address] [place] [address] CBCon 04-22-2021 Absolute nRBC <0.01 Normal <0.01 [facility] Comment on above: Performed By: #### C RP, RFP, CBC, FERR #### [address] [place] [address] Erythrocyte distribution width (RBC) [Ratio] 13.2 % Normal 11.5-15.0 [facility] Comment on above: Performed By: #### C RP, RFP, CBC, FERR #### [address] [place] [address] Hematocrit (Bld) [Volume fraction] 37.3 % Normal 36.0-46.0 [facility] Comment on above: Performed By: #### C RP, RFP, CBC, FERR #### [address] [place] [address] Hemoglobin (Bld) [Mass/Vol] 12.4 g/dL Normal 11.5-15.5 [facility] Comment on above: Performed By: #### C RP, RFP, CBC, FERR #### [address] [place] [address] MCH 29.9 pG Normal 26.0-34.0 [facility] Comment on above: Performed By: #### C RP, RFP, CBC, FERR #### [address] [place] [address] MCHC (RBC) [Mass/Vol] 33.2 g/dL Normal 30.5-36.0 [facility] Comment on above: Performed By: #### C RP, RFP, CBC, FERR #### [address] [place] [address] MCV (RBC) [Entitic vol] 89.9 fL Normal 80.0-100.0 [facility] Comment on above: Performed By: #### C RP, RFP, CBC, FERR #### [address] [place] [address] Platelet mean volume (Bld) [Entitic vol] 9.3 fL Normal 9.0-12.7 [facility] Comment on above: Performed By: #### C RP, RFP, CBC, FERR #### [address] [place] [address] Platelets (Bld) [#/Vol] 452 10*3/uL High 150-400 [facility] Comment on above: Performed By: #### C RP, RFP, CBC, FERR #### [address] [place] [address] RBC (Bld) [#/Vol] 4.15 10*6/uL Normal 3.90-5.20 [facility] Comment on above: Performed By: #### C RP, RFP, CBC, FERR #### [address] [place] [address] WBC (Bld) [#/Vol] 7.94 10*3/uL Normal 3.70-11.00 [facility] Comment on above: Performed By: #### C RP, RFP, CBC, FERR #### [address] [place] [address] NURSING PROGon 04-22-2021 NURSING PROG HNO ID: [id number] Author: Ashley Aly, RN Service: Nursing Author Type: Registered Nurse Type: Nursing Progress Note Filed: 04/22/2021 2:41 PM Note Text: Nursing Progress Note Patient Name: Bo Jacob Patient Location: [place] [address]/[id number] 2 Daily Note: Received report from assistant casino shift manager RN. Pt laying in bed, awake, and comfortable. Assessment complete as in the NPR.Pt needs met. Possessions and call light in reach. No complaints of pain at this time. 0821: Pt given medication as ordered and tolerated well. Pt needs met. Possessions and call light in reach. 1147: AP on unit and in to see. Made aware patient requesting to be transferred to [facility], for patient hospitalized there. AP called [facility] for transfer. This note was completed by: Ashley Aly [facility] NURSING PROG HNO ID: [id number] Author: Cherelle Howe RN Service: Nursing Author Type: Registered Nurse Type: Nursing Progress Note Filed: 04/22/2021 4:34 AM Note Text: Nursing Progress Note Patient Name: Bo Jacob Patient Location: [id number] 2 Daily Note: 1930 Assumed care of [...] This note was completed by: Cherelle Howe [facility] Renal Function Panelon 04-22 Albumin [Mass/Vol] 3.2 g/dL Low 4.0-4.9 [facility] Comment on above: Performed By: #### C RP, RFP, CBC, FERR #### [address] [place] [address] Anion gap [Moles/Vol] 10 mmol/L Normal 0-15 [facility] Comment on above: Performed By: #### C RP, RFP, CBC, FERR #### [address] [place] [address] Calcium [Mass/Vol] 8.8 mg/dL Normal 8.5-10.2 [facility] Comment on above: Result Comment: Felipe mmended reference range provided for this age range is published by the instrument adjunct writing instructor. Adult reference ranges have been verified. Performed By: #### C RP, RFP, CBC, FERR #### [address] [place] [address] Chloride [Moles/Vol] 105 mmol/L Normal 97-105 [facility] Comment on above: Performed By: #### C RP, RFP, CBC, FERR #### [address] [place] [address] CO2 [Moles/Vol] 25 mmol/L Normal 22-30 [facility] Comment on above: Performed By: #### C RP, RFP, CBC, FERR #### [address] [place] [address] Creatinine [Mass/Vol] 0.83 mg/dL Normal 0.58-0.96 [facility] Comment on above: Performed By: #### C RP, RFP, CBC, FERR #### [address] [place] [address] eGFR- Amer. >60 Normal >60 [facility] Comment on above: Performed By: #### C RP, RFP, CBC, FERR #### [place] [address] [facility] [place] [address] eGFR-All Other Races >60 Normal >60 [facility] Comment on above: Result Comment: eGFR [...] #### C RP, RFP, CBC, FERR #### [address] [place] [address] Glucose [Mass/Vol] 90 mg/dL Normal 74-99 [facility] Comment on above: Performed By: #### C RP, RFP, CBC, FERR #### [address] [place] [address] Phosphate [Mass/Vol] 2.9 mg/dL Normal 2.5-4.5 [facility] Comment on above: Performed By: #### C RP, RFP, CBC, FERR #### [address] [place] [address] Potassium [Moles/Vol] 3.5 mmol/L Low 3.7-5.1 [facility] Comment on above: Performed By: #### C RP, RFP, CBC, FERR #### [address] [place] [address] Sodium [Moles/Vol] 140 mmol/L Normal 136-144 [facility] Comment on above: Performed By: #### C RP, RFP, CBC, FERR #### [address] [place] [address] Urea nitrogen [Mass/Vol] 19 mg/dL Normal 7-21 [facility] Comment on above: Result Comment: Felipe mmended reference range provided for this age range is published by the instrument adjunct writing instructor. Adult reference ranges have been verified. Performed By: #### C RP, RFP, CBC, FERR #### [address] [place] [address] C-Reactive Proteinon 021 C-Reactive Protein 2.1 mg/dL High <0.9 [facility] Comment on above: Performed By: #### R FP, FERR, CBC, CRP ####[address] [place] [phone] CBCon 04-21-2021 Absolute nRBC <0.01 Normal <0.01 [facility] Comment on above: Performed By: #### R FP, FERR, CBC, CRP #### [address] [place] [address] Erythrocyte distribution width (RBC) [Ratio] 12.9 % Normal 11.5-15.0 [facility] Comment on above: Performed By: #### R FP, FERR, CBC, CRP #### [address] [place] [address] Hematocrit (Bld) [Volume fraction] 37.9 % Normal 36.0-46.0 [facility] Comment on above: Performed By: #### R FP, FERR, CBC, CRP #### [address] [place] [address] Hemoglobin (Bld) [Mass/Vol] 12.6 g/dL Normal 11.5-15.5 [facility] Comment on above: Performed By: #### R FP, FERR, CBC, CRP #### [address] [place] [address] MCH 30.1 pG Normal 26.0-34.0 [facility] Comment on above: Performed By: #### R FP, FERR, CBC, CRP #### [address] [place] [address] MCHC (RBC) [Mass/Vol] 33.2 g/dL Normal 30.5-36.0 [facility] Comment on above: Performed By: #### R FP, FERR, CBC, CRP #### [address] [place] [address] MCV (RBC) [Entitic vol] 90.7 fL Normal 80.0-100.0 [facility] Comment on above: Performed By: #### R FP, FERR, CBC, CRP #### [address] [place] [address] Platelet mean volume (Bld) [Entitic vol] 9.0 fL Normal 9.0-12.7 [facility] Comment on above: Performed By: #### R FP, FERR, CBC, CRP #### [address] [place] [address] Platelets (Bld) [#/Vol] 472 10*3/uL High 150-400 [facility] Comment on above: Performed By: #### R FP, FERR, CBC, CRP #### [address] [place] [address] RBC (Bld) [#/Vol] 4.18 10*6/uL Normal 3.90-5.20 [facility] Comment on above: Performed By: #### R FP, FERR, CBC, CRP #### [address] [place] [address] WBC (Bld) [#/Vol] 9.21 10*3/uL Normal 3.70-11.00 [facility] Comment on above: Performed By: #### R FP, FERR, CBC, CRP #### [address] [place] [address] CONSULT PROGon 04-21-2021 CONSULT PROG HNO ID: [id number] Author: Afsaneh Heard MD Service: Infectious Disease [...] CRP better AFSANEH HEARD M.D ID consultants [phone] [facility] Ferritinon 04-21-2021 Ferritin [Mass/Vol] 393.8 ng/mL High 14.7-205.1 [facility] Comment on above: Performed By: #### R FP, FERR, CBC, CRP ####[facility] [place], [place] [phone] NURSING PROGon 04-21-2021 NURSING PROG HNO ID: [id number] Author: Radha Clements RN Service: ? Author Type: Registered Nurse Type: Nursing Progress Note Filed: 04/21/2021 3:45 PM Note Text: Nursing Progress Note Patient Name: Bo Jacob Patient Location: [id number] 2 Daily Note: 0720 Receive bedside report [...] This note was completed by: Radha Clements [facility] NUTRITIONon 04-21-2021 NUTRITION HNO ID: [id number] Author: Rehana Garcia RD Service: Nutrition Therapy Author Type: Registered Dietitian Type: Nutrition Filed: 04/21/2021 12:10 PM Note Text: NUTRITION THERAPY PROGRESS NOTE SERVICE DATE: 04/21/2021 SERVICE TIME: 1000 Nutrition Assessment: Recommended Malnutrition Diagnosis: Mild Protein-Calorie Malnutrition (04/17/21 0858 : Phyllis Esqueda RD) Estimated kilocalorie needs: 4315-4827 Calorie Calculation Method: 11-14 kcals/kg Estimated protein needs (grams): 96-120 Grams protein determined by: 2.0 - 2.5 g/kg;[place] body weight Care Plan: Continue current diet [...] April 21, 2021 TIME: 12:09 PM PAGER: [phone] Normal [facility] Renal Function Panelon 04-21 Albumin [Mass/Vol] 3.4 g/dL Low 4.0-4.9 [facility] Comment on above: Performed By: #### R FP, FERR, CBC, CRP ####[address] [place] [phone] Anion gap [Moles/Vol] 7 mmol/L Normal 0-15 [facility] Comment on above: Performed By: #### R FP, FERR, CBC, CRP ####[address] [place]., [place] [phone] Calcium [Mass/Vol] 8.8 mg/dL Normal 8.5-10.2 [facility] Comment on above: Result Comment: Felipe mmended reference range provided for this age range is published by the instrument adjunct writing instructor. Adult reference ranges have been verified. Performed By: #### R FP, FERR, CBC, CRP ####[place] [address] [facility] [place]., [place] [phone] Chloride [Moles/Vol] 106 mmol/L High 97-105 [facility] Comment on above: Performed By: #### R FP, FERR, CBC, CRP ####[address] [place] [phone] CO2 [Moles/Vol] 26 mmol/L Normal 22-30 [facility] Comment on above: Performed By: #### R FP, FERR, CBC, CRP ####[address] [place] [phone] Creatinine [Mass/Vol] 0.68 mg/dL Normal 0.58-0.96 [facility] Comment on above: Performed By: #### R FP, FERR, CBC, CRP ####[address] [place] [phone] eGFR- Amer. >60 Normal >60 [facility] Comment on above: Performed By: #### R FP, FERR, CBC, CRP ####[address] [place] [phone] eGFR-All Other Races >60 Normal >60 [facility] Comment on above: Result Comment: eGFR [...] By: #### R FP, FERR, CBC, CRP ####[address] [place] [phone] Glucose [Mass/Vol] 94 mg/dL Normal 74-99 [facility] Comment on above: Performed By: #### R FP, FERR, CBC, CRP ####[address] [place] [phone] Phosphate [Mass/Vol] 2.7 mg/dL Normal 2.5-4.5 [facility] Comment on above: Performed By: #### R FP, FERR, CBC, CRP ####[facility] [place]., [place] [phone] Potassium [Moles/Vol] 3.8 mmol/L Normal 3.7-5.1 [facility] Comment on above: Performed By: #### R FP, FERR, CBC, CRP ####[facility] [facility] [place] [phone] Sodium [Moles/Vol] 139 mmol/L Normal 136-144 [facility] Comment on above: Performed By: #### R FP, FERR, CBC, CRP ####[facility] [facility] [place] [phone] Urea nitrogen [Mass/Vol] 20 mg/dL Normal 7-21 [facility] Comment on above: Result Comment: Felipe mmended reference range provided for this age range is published by the instrument adjunct writing instructor. Adult reference ranges have been verified. Performed By: #### R FP, FERR, CBC, CRP ####[facility] [facility] [place] [phone] THERAPY NTon 04-21-2021 THERAPY NT HNO ID: [id number] Author: Stevo Fallon PT Service: ? Author Type: Physical Therapist Type: Therapy (PT/OT/Speech/Resp) Filed: 04/21/2021 2:33 PM Note Text: Physical Therapy Re-Evaluation SERVICE DATE: 04/21/2021 SERVICE TIME: 1130 to 1215 ROOM: [place] [address] Recommended Discharge Disposition: Subacute/SNF Recommended Discharge Disposition [...] 5 L (more content not included)... Normal [facility] CBCon 04-20-2021 Absolute nRBC <0.01 Normal <0.01 [facility] Comment on above: Performed By: #### C RP, RFP, CBC, FERR #### [facility] [address] [facility], [place] [address] Erythrocyte distribution width (RBC) [Ratio] 13.0 % Normal 11.5-15.0 [facility] Comment on above: Performed By: #### C RP, RFP, CBC, FERR #### [facility] [address] [facility], [place] [address] Hematocrit (Bld) [Volume fraction] 35.8 % Low 36.0-46.0 [facility] Comment on above: Performed By: #### C RP, RFP, CBC, FERR #### [address] [place] [address] Hemoglobin (Bld) [Mass/Vol] 12.0 g/dL Normal 11.5-15.5 [facility] Comment on above: Performed By: #### C RP, RFP, CBC, FERR #### [address] [place] [address] MCH 30.2 pG Normal 26.0-34.0 [facility] Comment on above: Performed By: #### C RP, RFP, CBC, FERR #### [address] [place] [address] MCHC (RBC) [Mass/Vol] 33.5 g/dL Normal 30.5-36.0 [facility] Comment on above: Performed By: #### C RP, RFP, CBC, FERR #### [address] [place] [address] MCV (RBC) [Entitic vol] 90.2 fL Normal 80.0-100.0 [facility] Comment on above: Performed By: #### C RP, RFP, CBC, FERR #### [address] [place] [address] Platelet mean volume (Bld) [Entitic vol] 8.9 fL Low 9.0-12.7 [facility] Comment on above: Performed By: #### C RP, RFP, CBC, FERR #### [address] [place] [address] Platelets (Bld) [#/Vol] 442 10*3/uL High 150-400 [facility] Comment on above: Performed By: #### C RP, RFP, CBC, FERR #### [address] [place] [address] RBC (Bld) [#/Vol] 3.97 10*6/uL Normal 3.90-5.20 [facility] Comment on above: Performed By: #### C RP, RFP, CBC, FERR #### [facility] [address] [facility]., [place] [id number] WBC (Bld) [#/Vol] 7.32 10*3/uL Normal 3.70-11.00 [facility] Comment on above: Performed By: #### C RP, RFP, CBC, FERR #### [facility] [address] [facility] [place] [address] CONSULT PROGon 04-20-2021 CONSULT PROG HNO ID: [id number] Author: Afsaneh Heard MD Service: Infectious Disease [...] CRP better AFSANEH HEARD M.D ID consultants [phone] [facility] NURSING PROGon 04-20-2021 NURSING PROG HNO ID: [id number] Author: Alondra Rivas RN Service: Nursing Author Type: Registered Nurse Type: Nursing Progress Note Filed: 04/20/2021 7:51 PM Note Text: Nursing Progress Note Patient Name: Bo Jacob Patient Location: [id number] Daily Note: 1930 Assumed care of patient. This note was completed by: Alondra Rivas [facility] NURSING PROG HNO ID: [id number] Author: Radha Clements, RN Service: ? Author Type: Registered Nurse Type: Nursing Progress Note Filed: 04/20/2021 2:45 PM Note Text: Nursing Progress Note Patient Name: Bo Jacob Patient Location: [id number] 2 Daily Note: 1350 Patient transfer to room [facility]-2 from ICU. Patient AANDOx3. Assessment complete as chart. Oxygen 5L via NC. No sing of respiratory distress noted. Telemetry maintained in SR. External catheter in place. No pain or c/o at this time. Bed rails upx3. Call light within reach. Will continue to monitor. [address] Pulido. This note was completed by: Radha Clements [facility] Renal Function Panelon 04-20 Albumin [Mass/Vol] 3.2 g/dL Low 4.0-4.9 [facility] Comment on above: Performed By: #### C RP, RFP, CBC, FERR #### [facility] [address] [facility]., [place] [id number] Anion gap [Moles/Vol] 9 mmol/L Normal 0-15 [facility] Comment on above: Performed By: #### C RP, RFP, CBC, FERR #### [facility] [address] [facility] [address] Calcium [Mass/Vol] 8.7 mg/dL Normal 8.5-10.2 [facility] Comment on above: Result Comment: Felipe mmended reference range provided for this age range is published by the instrument adjunct writing instructor. Adult reference ranges have been verified. Performed By: #### C RP, RFP, CBC, FERR #### [facility] [id number] [place] [address] [place] [address] Chloride [Moles/Vol] 105 mmol/L Normal 97-105 [facility] Comment on above: Performed By: #### C RP, RFP, CBC, FERR #### [address] [place] [address] CO2 [Moles/Vol] 25 mmol/L Normal 22-30 [facility] Comment on above: Performed By: #### C RP, RFP, CBC, FERR #### [address] [place] [address] Creatinine [Mass/Vol] 0.80 mg/dL Normal 0.58-0.96 [facility] Comment on above: Performed By: #### C RP, RFP, CBC, FERR #### [address] [place] [address] eGFR- Amer. >60 Normal >60 [facility] Comment on above: Performed By: #### C RP, RFP, CBC, FERR #### [address] [place] [address] eGFR-All Other Races >60 Normal >60 [facility] Comment on above: Result Comment: eGFR [...] #### C RP, RFP, CBC, FERR #### [address] [place] [address] Glucose [Mass/Vol] 85 mg/dL Normal 74-99 [facility] Comment on above: Performed By: #### C RP, RFP, CBC, FERR #### [address] [place] [address] Phosphate [Mass/Vol] 3.0 mg/dL Normal 2.5-4.5 [facility] Comment on above: Performed By: #### C RP, RFP, CBC, FERR #### [address] [place] [address] Potassium [Moles/Vol] 3.8 mmol/L Normal 3.7-5.1 [facility] Comment on above: Performed By: #### C RP, RFP, CBC, FERR #### [address] [place] [address] Sodium [Moles/Vol] 139 mmol/L Normal 136-144 [facility] Comment on above: Performed By: #### C RP, RFP, CBC, FERR #### [address] [place] [address] Urea nitrogen [Mass/Vol] 18 mg/dL Normal 7-21 [facility] Comment on above: Result Comment: Felipe mmended reference range provided for this age range is published by the instrument adjunct writing instructor. Adult reference ranges have been verified. Performed By: #### C RP, RFP, CBC, FERR #### [address] [place] [address] C-Reactive Proteinon 021 C-Reactive Protein 3.7 mg/dL High <0.9 [facility] Comment on above: Performed By: #### C RP, RFP, CBC, FERR #### [address] [place] [address] CASE MANAGEMon 04-19-2021 CASE MANAGEM HNO ID: [id number] Author: Zehra Jones RN Service: Nursing Author [...] ? Noted DC planning has been for [facility]- sent updates. CM will continue to follow and assist with discharge planning. ? SIGNATURE: Zehra Jones RN PATIENT NAME: Bo Jacob DATE: April 19, 2021 TIME: 12:35 PM PAGER/CONTACT #: - Normal [facility] CBCon 04-19-2021 Absolute nRBC <0.01 Normal <0.01 [facility] Comment on above: Performed By: #### C RP, RFP, CBC, FERR #### [place] [id number] [facility] [place] [address] Erythrocyte distribution width (RBC) [Ratio] 13.0 % Normal 11.5-15.0 [facility] Comment on above: Performed By: #### C RP, RFP, CBC, FERR #### [address] [place] [address] Hematocrit (Bld) [Volume fraction] 36.3 % Normal 36.0-46.0 [facility] Comment on above: Performed By: #### C RP, RFP, CBC, FERR #### [address] [place] [address] Hemoglobin (Bld) [Mass/Vol] 12.2 g/dL Normal 11.5-15.5 [facility] Comment on above: Performed By: #### C RP, RFP, CBC, FERR #### [address] [place] [address] MCH 29.9 pG Normal 26.0-34.0 [facility] Comment on above: Performed By: #### C RP, RFP, CBC, FERR #### [address] [place] [address] MCHC (RBC) [Mass/Vol] 33.6 g/dL Normal 30.5-36.0 [facility] Comment on above: Performed By: #### C RP, RFP, CBC, FERR #### [address] [place] [address] MCV (RBC) [Entitic vol] 89.0 fL Normal 80.0-100.0 [facility] Comment on above: Performed By: #### C RP, RFP, CBC, FERR #### [address] [place] [address] Platelet mean volume (Bld) [Entitic vol] 9.2 fL Normal 9.0-12.7 [facility] Comment on above: Performed By: #### C RP, RFP, CBC, FERR #### [address] [place] [address] Platelets (Bld) [#/Vol] 465 10*3/uL High 150-400 [facility] Comment on above: Performed By: #### C RP, RFP, CBC, FERR #### [address] [place] [address] RBC (Bld) [#/Vol] 4.08 10*6/uL Normal 3.90-5.20 [facility] Comment on above: Performed By: #### C RP, RFP, CBC, FERR #### [address] [place] [address] WBC (Bld) [#/Vol] 9.24 10*3/uL Normal 3.70-11.00 [facility] Comment on above: Performed By: #### C RP, RFP, CBC, FERR #### [facility] [address] [place] [address] CONSULTon 04-19-2021 CONSULT HNO ID: [id number] Author: Ty Pulido MD Service: General Internal Medicine Author Type: Physician Type: Consults Filed: 04/19/2021 9:27 PM Note Text: INTERNAL MEDICINE INITIAL CONSULT SERVICE DATE: 04/19/2021 SERVICE TIME: 11:30 AM REASON FOR CONSULT: Post ICU medical management REQUESTING PHYSICIAN: Dr. Moscoso PRIMARY CARE PHYSICIAN: Loan Dias APRN.CNP Subjective HISTORY OF PRESENT ILLNESS: Ms. Jacob [...] the past 2 (more content not included)... [facility] CONSULT PROGon 04-19-2021 CONSULT PROG HNO ID: [id number] Author: Afsaneh Heard MD Service: Infectious Disease [...] CRP better AFSANEH HEARD M.D ID consultants [phone] [facility] Ferritinon 04-19-2021 Ferritin [Mass/Vol] 402.7 ng/mL High 14.7-205.1 [facility] Comment on above: Performed By: #### C RP, RFP, CBC, FERR #### [facility] [address] [place] [address] NURSING PROGon 04-19-2021 NURSING PROG HNO ID: [id number] Author: Radha Gonzalez RN Service: ? Author Type: Registered Nurse Type: Nursing Progress Note Filed: 04/19/2021 7:36 PM Note Text: Nursing Progress Note Patient Name: Bo Jacob Patient Location: [facility] Daily Note: 1900 assumed care of pt This note was completed by: Radha Gonzalez [facility] NURSING PROG HNO ID: [id number] Author: Claudia Salas RN Service: ? Author Type: Registered Nurse Type: Nursing Progress Note Filed: 04/19/2021 11:27 AM Note Text: Nursing Progress Note Patient Name: Bo Jacob Patient Location: ICUA1/-ICUA16 Daily Note: 0700 report from jyoti malcolm 113Malena Moscoso at bedside, pt is transfer to telemetry This note was completed by: Claudia Salas Normal [facility] Renal Function Panelon 04-19 Albumin [Mass/Vol] 3.3 g/dL Low 4.0-4.9 [facility] Comment on above: Performed By: #### C RP, RFP, CBC, FERR #### [facility] [address] [facility] [place] [address] Anion gap [Moles/Vol] 10 mmol/L Normal 0-15 [facility] Comment on above: Performed By: #### C RP, RFP, CBC, FERR #### [facility] [address] [facility] [place] [address] Calcium [Mass/Vol] 8.8 mg/dL Normal 8.5-10.2 [facility] Comment on above: Result Comment: Felipe mmended reference range provided for this age range is published by the instrument adjunct writing instructor. Adult reference ranges have been verified. Performed By: #### C RP, RFP, CBC, FERR #### [facility] [address] [facility] [place] [address] Chloride [Moles/Vol] 105 mmol/L Normal 97-105 [facility] Comment on above: Performed By: #### C RP, RFP, CBC, FERR #### [facility] [address] [facility] [place] [address] CO2 [Moles/Vol] 24 mmol/L Normal 22-30 [facility] Comment on above: Performed By: #### C RP, RFP, CBC, FERR #### [facility] [address] [facility] [place] [address] Creatinine [Mass/Vol] 0.78 mg/dL Normal 0.58-0.96 [facility] Comment on above: Performed By: #### C RP, RFP, CBC, FERR #### [facility] [address] [facility] [place] [address] eGFR- Amer. >60 Normal >60 [facility] Comment on above: Performed By: #### C RP, RFP, CBC, FERR #### [facility] [address] [facility] [place] [address] eGFR-All Other Races >60 Normal >60 [facility] Comment on above: Result Comment: eGFR [...] #### C RP, RFP, CBC, FERR #### [facility] [address] [facility] [place] [address] Glucose [Mass/Vol] 74 mg/dL Normal 74-99 [facility] Comment on above: Performed By: #### C RP, RFP, CBC, FERR #### [facility] [address] [facility] [place] [address] Phosphate [Mass/Vol] 2.8 mg/dL Normal 2.5-4.5 [facility] Comment on above: Performed By: #### C RP, RFP, CBC, FERR #### [facility] [address] [facility] [place] [address] Potassium [Moles/Vol] 3.9 mmol/L Normal 3.7-5.1 [facility] Comment on above: Performed By: #### C RP, RFP, CBC, FERR #### [facility] [address] [facility] [place] [address] Sodium [Moles/Vol] 139 mmol/L Normal 136-144 [facility] Comment on above: Performed By: #### C RP, RFP, CBC, FERR #### [address] [place] [facility] Urea nitrogen [Mass/Vol] 17 mg/dL Normal 7-21 [facility] Comment on above: Result Comment: Felipe mmended reference range provided for this age range is published by the instrument adjunct writing instructor. Adult reference ranges have been verified. Performed By: #### C RP, RFP, CBC, FERR #### [address] [place] [address] CBCon 04-18-2021 Absolute nRBC <0.01 Normal <0.01 [facility] Comment on above: Performed By: #### C RP, RFP, CBC, FERR #### [address] [place] [address] Erythrocyte distribution width (RBC) [Ratio] 12.7 % Normal 11.5-15.0 [facility] Comment on above: Performed By: #### C RP, RFP, CBC, FERR #### [address] [place] [address] Hematocrit (Bld) [Volume fraction] 35.7 % Low 36.0-46.0 [facility] Comment on above: Performed By: #### C RP, RFP, CBC, FERR #### [address] [place] [address] Hemoglobin (Bld) [Mass/Vol] 12.2 g/dL Normal 11.5-15.5 [facility] Comment on above: Performed By: #### C RP, RFP, CBC, FERR #### [address] [place] [address] MCH 30.3 pG Normal 26.0-34.0 [facility] Comment on above: Performed By: #### C RP, RFP, CBC, FERR #### [address] [place] [address] MCHC (RBC) [Mass/Vol] 34.2 g/dL Normal 30.5-36.0 [facility] Comment on above: Performed By: #### C RP, RFP, CBC, FERR #### [address] [place] [address] MCV (RBC) [Entitic vol] 88.6 fL Normal 80.0-100.0 [facility] Comment on above: Performed By: #### C RP, RFP, CBC, FERR #### [address] [place] [address] Platelet mean volume (Bld) [Entitic vol] 9.0 fL Normal 9.0-12.7 [facility] Comment on above: Performed By: #### C RP, RFP, CBC, FERR #### [address] [place] [address] Platelets (Bld) [#/Vol] 451 10*3/uL High 150-400 [facility] Comment on above: Performed By: #### C RP, RFP, CBC, FERR #### [address] [place] [address] RBC (Bld) [#/Vol] 4.03 10*6/uL Normal 3.90-5.20 [facility] Comment on above: Performed By: #### C RP, RFP, CBC, FERR #### [address] [place] [address] WBC (Bld) [#/Vol] 8.40 10*3/uL Normal 3.70-11.00 [facility] Comment on above: Performed By: #### C RP, RFP, CBC, FERR #### [address] [place] [address] CONSULT PROGon 04-18-2021 CONSULT PROG HNO ID: [id number] Author: Afsaneh Heard MD Service: Infectious Disease [...] WBC NL AFSANEH HEARD M.D ID consultants [phone] Normal [facility] Procalcitoninon 04-18-2021 Procalcitonin 0.13 ng/mL High <0.09 [facility] Comment on above: Result Comment: For a guided interpretation of test results, please visit the Change in Procalcitonin Calculator, [email or web address]. Performed By: #### C RP, RFP, CBC, FERR #### [facility] [address] [facility] [place] [address] Renal Function Panelon 04-18 Albumin [Mass/Vol] 3.3 g/dL Low 4.0-4.9 [facility] Comment on above: Performed By: #### C RP, RFP, CBC, FERR #### [facility] [address] [place] [address] Anion gap [Moles/Vol] 9 mmol/L Normal 0-15 [facility] Comment on above: Performed By: #### C RP, RFP, CBC, FERR #### [address] [place] [address] Calcium [Mass/Vol] 8.8 mg/dL Normal 8.5-10.2 [facility] Comment on above: Result Comment: Felipe mmended reference range provided for this age range is published by the instrument adjunct writing instructor. Adult reference ranges have been verified. Performed By: #### C RP, RFP, CBC, FERR #### [address] [place] [address] Chloride [Moles/Vol] 105 mmol/L Normal 97-105 [facility] Comment on above: Performed By: #### C RP, RFP, CBC, FERR #### [address] [place] [address] CO2 [Moles/Vol] 27 mmol/L Normal 22-30 [facility] Comment on above: Performed By: #### C RP, RFP, CBC, FERR #### [address] [place] [address] Creatinine [Mass/Vol] 0.80 mg/dL Normal 0.58-0.96 [facility] Comment on above: Performed By: #### C RP, RFP, CBC, FERR #### [address] [place] [address] eGFR- Amer. >60 Normal >60 [facility] Comment on above: Performed By: #### C RP, RFP, CBC, FERR #### [address] [place] [address] eGFR-All Other Races >60 Normal >60 [facility] Comment on above: Result Comment: eGFR [...] #### C RP, RFP, CBC, FERR #### [facility] [address] [facility] [place] [address] Glucose [Mass/Vol] 87 mg/dL Normal 74-99 [facility] Comment on above: Performed By: #### C RP, RFP, CBC, FERR #### [address] [place] [address] Phosphate [Mass/Vol] 2.6 mg/dL Normal 2.5-4.5 [facility] Comment on above: Performed By: #### C RP, RFP, CBC, FERR #### [address] [place] [address] Potassium [Moles/Vol] 4.1 mmol/L Normal 3.7-5.1 [facility] Comment on above: Performed By: #### C RP, RFP, CBC, FERR #### [address] [place] [address] Sodium [Moles/Vol] 141 mmol/L Normal 136-144 [facility] Comment on above: Performed By: #### C RP, RFP, CBC, FERR #### [address] [place] [address] Urea nitrogen [Mass/Vol] 17 mg/dL Normal 7-21 [facility] Comment on above: Result Comment: Felipe mmended reference range provided for this age range is published by the instrument adjunct writing instructor. Adult reference ranges have been verified. Performed By: #### C RP, RFP, CBC, FERR #### [address] [place] [address] C-Reactive Proteinon 0830-2 021 C-Reactive Protein 7.0 mg/dL High <0.9 [facility] Comment on above: Performed By: #### C BC, RFP, CRP, FERR ####[address], [place] [phone] CASE MANAGEMon 04-17-2021 CASE MANAGEM HNO ID: [id number] Author: Zehra Jones RN Service: Nursing Author [...] [place]. Noted DC planning has been for [facility]. CM will continue to follow and assist with discharge planning. SIGNATURE: Zehra Jones RN PATIENT NAME: Bo Jacob DATE: April 17, 2021 TIME: 12:48 PM PAGER/CONTACT #: - Normal [facility] CBCon 04-17-2021 Absolute nRBC <0.01 Normal <0.01 [facility] Comment on above: Performed By: #### C BC, RFP, CRP, FERR ####[address], [place] [phone] Erythrocyte distribution width (RBC) [Ratio] 12.7 % Normal 11.5-15.0 [facility] Comment on above: Performed By: #### C BC, RFP, CRP, FERR ####[address], [place] [phone] Hematocrit (Bld) [Volume fraction] 36.9 % Normal 36.0-46.0 [facility] Comment on above: Performed By: #### C BC, RFP, CRP, FERR ####[address], [place] [phone] Hemoglobin (Bld) [Mass/Vol] 12.2 g/dL Normal 11.5-15.5 [facility] Comment on above: Performed By: #### C BC, RFP, CRP, FERR ####[address] [place] [phone] MCH 30.0 pG Normal 26.0-34.0 [facility] Comment on above: Performed By: #### C BC, RFP, CRP, FERR ####[address] [place] [phone] MCHC (RBC) [Mass/Vol] 33.1 g/dL Normal 30.5-36.0 [facility] Comment on above: Performed By: #### C BC, RFP, CRP, FERR ####[address] [place] [phone] MCV (RBC) [Entitic vol] 90.7 fL Normal 80.0-100.0 [facility] Comment on above: Performed By: #### C BC, RFP, CRP, FERR ####[address] [place] [phone] Platelet mean volume (Bld) [Entitic vol] 9.1 fL Normal 9.0-12.7 [facility] Comment on above: Performed By: #### C BC, RFP, CRP, FERR ####[address] [place] [phone] Platelets (Bld) [#/Vol] 381 10*3/uL Normal 150-400 [facility] Comment on above: Performed By: #### C BC, RFP, CRP, FERR ####[address] [place] [phone] RBC (Bld) [#/Vol] 4.07 10*6/uL Normal 3.90-5.20 [facility] Comment on above: Performed By: #### C BC, RFP, CRP, FERR ####[address] [place]., [place] [phone] WBC (Bld) [#/Vol] 7.82 10*3/uL Normal 3.70-11.00 [facility] Comment on above: Performed By: #### C BC, RFP, CRP, FERR ####[facility] [place], [place] [phone] CONSULT PROGon 04-17-2021 CONSULT PROG HNO ID: [id number] Author: Afsaneh Heard MD Service: Infectious Disease [...] swab with MSSA Day # 7 of zosyn,will repeat procal in am [...] higher today AFSANEH HEARD M.D ID consultants [phone] Normal [facility] Ferritinon 04-17-2021 Ferritin [Mass/Vol] 495.8 ng/mL High 14.7-205.1 [facility] Comment on above: Performed By: #### C BC, RFP, CRP, FERR ####[facility] [place], [place] [phone] NURSING PROGon 04-17-2021 NURSING PROG HNO ID: [id number] Author: Claudia Salas RN Service: ? Author Type: Registered Nurse Type: Nursing Progress Note Filed: 04/17/2021 9:01 AM Note Text: Nursing Progress Note Patient Name: Bo Jacob [facility] Daily Note: 699 report indra rn rn 0830 oxygen to nc 13l This note was completed by: Claudia A [facility] NUTRITIONon 04-17-2021 NUTRITION HNO ID: [id number] Author: Phyllis Esqueda RD Service: Nutrition Therapy [...] by: Patient/family self-report;Intake records Estimated kilocalorie needs: 5888-9603 Calorie Calculation Method: 11-14 kcals/kg Estimated protein needs (grams): 96-120 Grams protein determined by: 2.0 - 2.5 g/kg;[place] body weight Care Plan: Continue current diet Supplements: Ensure Clear;Zone Perfect Bar Vitamins and Minerals: Multivitamin with minerals Labs: BMP;CBC;Magnesium;Phosphoru s Monitor and Evaluation: Meet greater than 75% of estimated needs;Monitor bowel function;Monitor fluid/electrolyte balance;Monitor labs, I/Os, vital signs, weight Discharge Recommendations: Diet Diet: To be determined HPI: 65 year old F admitted for SOB 2/2 COVID PNA. PMHx significant for ER/WI positive, HER2 positive invasive ductal carcinoma in [...] April 17, 2021 TIME: 9:01 AM PAGER: [phone] Normal [facility] Renal Function Panelon 04-17 Albumin [Mass/Vol] 3.2 g/dL Low 4.0-4.9 [facility] Comment on above: Performed By: #### C BC, RFP, CRP, FERR ####[facility] [facility]., [place] [phone] Anion gap [Moles/Vol] 8 mmol/L Normal 0-15 [facility] Comment on above: Performed By: #### C BC, RFP, CRP, FERR ####[facility] [facility]., [place] [phone] Calcium [Mass/Vol] 8.8 mg/dL Normal 8.5-10.2 [facility] Comment on above: Result Comment: Felipe mmended reference range provided for this age range is published by the instrument adjunct writing instructor. Adult reference ranges have been verified. Performed By: #### C BC, RFP, CRP, FERR ####[address] [place] [phone] Chloride [Moles/Vol] 102 mmol/L Normal 97-105 [facility] Comment on above: Performed By: #### C BC, RFP, CRP, FERR ####[address] [place] [phone] CO2 [Moles/Vol] 27 mmol/L Normal 22-30 [facility] Comment on above: Performed By: #### C BC, RFP, CRP, FERR ####[address] [place] [phone] Creatinine [Mass/Vol] 0.89 mg/dL Normal 0.58-0.96 [facility] Comment on above: Performed By: #### C BC, RFP, CRP, FERR ####[address] [place] [phone] eGFR- Amer. >60 Normal >60 [facility] Comment on above: Performed By: #### C BC, RFP, CRP, FERR ####[address] [place] [phone] eGFR-All Other Races >60 Normal >60 [facility] Comment on above: Result Comment: eGFR [...] By: #### C BC, RFP, CRP, FERR ####[address] [place] [phone] Glucose [Mass/Vol] 83 mg/dL Normal 74-99 [facility] Comment on above: Performed By: #### C BC, RFP, CRP, FERR ####[address] [place]., [place] [phone] Phosphate [Mass/Vol] 2.4 mg/dL Low 2.5-4.5 [facility] Comment on above: Performed By: #### C BC, RFP, CRP, FERR ####[address] [place]., [place] [phone] Potassium [Moles/Vol] 3.5 mmol/L Low 3.7-5.1 [facility] Comment on above: Performed By: #### C BC, RFP, CRP, FERR ####[address] [place]., [place] [phone] Sodium [Moles/Vol] 137 mmol/L Normal 136-144 [facility] Comment on above: Performed By: #### C BC, RFP, CRP, FERR ####[address] [place]., [place] [phone] Urea nitrogen [Mass/Vol] 15 mg/dL Normal 7-21 [facility] Comment on above: Result Comment: Felipe mmended reference range provided for this age range is published by the instrument adjunct writing instructor. Adult reference ranges have been verified. Performed By: #### C BC, RFP, CRP, FERR ####[address] [place]., [place] [phone] THERAPY NTon 04-17-2021 THERAPY NT HNO ID: [id number] Author: Ashwini Diallo, JAX Service: Physical Therapy Author Type: Physical Therapist Type: Therapy (PT/OT/Speech/Resp) Filed: 04/17/2021 6:28 AM Note Text: PHYSICAL THERAPY MISSED VISIT SERVICE DATE: 04/17/2021 SERVICE TIME: 624 to 625 ROOM: [place] [address] Attempted Treatment. Patient not seen due to Illness. ICU transfer 04/15/2021 due to increasing shortness of breath, required venti-mask at 50%, now on hi-flow nasal cannula 12-15L with periods of desaturation noted in MD notes. Will hold PT this date due to deterioration and return for re-assessment as able. SIGNATURE: Ashwini Diallo, PT PATIENT NAME: Bo Jacob DATE: April 17, 2021 TIME: 6:26 AM Normal [facility] CBCon 04-16-2021 Absolute nRBC <0.01 Normal <0.01 [facility] Comment on above: Performed By: #### C RP, RFP, CBC, FERR #### [address] [place] [address] Erythrocyte distribution width (RBC) [Ratio] 12.9 % Normal 11.5-15.0 [facility] Comment on above: Performed By: #### C RP, RFP, CBC, FERR #### [address] [place] [address] Hematocrit (Bld) [Volume fraction] 35.8 % Low 36.0-46.0 [facility] Comment on above: Performed By: #### C RP, RFP, CBC, FERR #### [address] [place] [address] Hemoglobin (Bld) [Mass/Vol] 12.0 g/dL Normal 11.5-15.5 [facility] Comment on above: Performed By: #### C RP, RFP, CBC, FERR #### [address] [place] [address] MCH 30.1 pG Normal 26.0-34.0 [facility] Comment on above: Performed By: #### C RP, RFP, CBC, FERR #### [address] [place] [address] MCHC (RBC) [Mass/Vol] 33.5 g/dL Normal 30.5-36.0 [facility] Comment on above: Performed By: #### C RP, RFP, CBC, FERR #### [address] [place] [address] MCV (RBC) [Entitic vol] 89.7 fL Normal 80.0-100.0 [facility] Comment on above: Performed By: #### C RP, RFP, CBC, FERR #### [address] [place] [address] Platelet mean volume (Bld) [Entitic vol] 9.1 fL Normal 9.0-12.7 [facility] Comment on above: Performed By: #### C RP, RFP, CBC, FERR #### [address] [place] [address] Platelets (Bld) [#/Vol] 363 10*3/uL Normal 150-400 [facility] Comment on above: Performed By: #### C RP, RFP, CBC, FERR #### [address] [place] [address] RBC (Bld) [#/Vol] 3.99 10*6/uL Normal 3.90-5.20 [facility] Comment on above: Performed By: #### C RP, RFP, CBC, FERR #### [address] [place] [address] WBC (Bld) [#/Vol] 7.31 10*3/uL Normal 3.70-11.00 [facility] Comment on above: Performed By: #### C RP, RFP, CBC, FERR #### [address] [place] [address] CONSULT PROGon 04-16-2021 CONSULT PROG HNO ID: [id number] Author: Monroe Stevens MD Service: Infectious Disease [...] inflammatory markers AND continue supportive measures Normal [facility] CT CHEST W IVCON PEon 2020 CT CHEST W IVCON PE * * *Final Report* * * DATE OF EXAM: Apr 16 2021 4:00PM [facility] 0540 - CT CHEST W IVCON PE [...] lesion. Degenerative changes. Upper abdomen: Hepatic cysts Diagnostic Technician (topogram) images: No additional findings. IMPRESSION: No CT evidence of pulmonary embolism. Nondiagnostic regions of segmental and subsegmental pulmonary arteries Persistent bilateral lung opacities, some areas more confluent/consolidative compared to prior. Interval new small left pleural effusion. Mild mediastinal/hilar adenopathy, likely reactive Memory Care Program Resident: RODO Transcribe Date/Time: Apr 16 2021 5:17P Dictated by : GIOVANI HANLEY MD This examination was interpreted and the report reviewed and electronically signed by: GIOVANI HANLEY MD on Apr 16 2021 5:27PM EST [id number] [facility] NURSING PROGon 04-16-2021 NURSING PROG HNO ID: [id number] Author: Claudia Salas RN Service: ? Author Type: Registered Nurse Type: Nursing Progress Note Filed: 04/16/2021 7:53 AM Note Text: Nursing Progress Note Patient Name: Bo Jacob [facility] Daily Note: 0700 report from jyoti redd. Pt awake, alert, oriented. States had restful evening. This note was completed by: Claudia Salas [facility] NURSING PROG HNO ID: [id number] Author: Radha Gonzalez RN Service: ? Author Type: Registered Nurse Type: Nursing Progress Note Filed: 04/16/2021 2:50 AM Note Text: Nursing Progress Note Patient Name: Bo Jacob [facility] Daily Note: 0000 assumed care of pt, received report from Norah Baxter RN This note was completed by: Radha Gonzalez [facility] Renal Function Panelon 04-16 Albumin [Mass/Vol] 3.1 g/dL Low 4.0-4.9 [facility] Comment on above: Performed By: #### C RP, RFP, CBC, FERR #### [facility] [address] [place] [address] Anion gap [Moles/Vol] 9 mmol/L Normal 0-15 [facility] Comment on above: Performed By: #### C RP, RFP, CBC, FERR #### [place] [phone] [facility] [place] [address] Calcium [Mass/Vol] 8.5 mg/dL Normal 8.5-10.2 [facility] Comment on above: Result Comment: Felipe mmended reference range provided for this age range is published by the instrument adjunct writing instructor. Adult reference ranges have been verified. Performed By: #### C RP, RFP, CBC, FERR #### [address] [place] [address] Chloride [Moles/Vol] 104 mmol/L Normal 97-105 [facility] Comment on above: Performed By: #### C RP, RFP, CBC, FERR #### [address] [place] [address] CO2 [Moles/Vol] 26 mmol/L Normal 22-30 [facility] Comment on above: Performed By: #### C RP, RFP, CBC, FERR #### [address] [place] [address] Creatinine [Mass/Vol] 0.89 mg/dL Normal 0.58-0.96 [facility] Comment on above: Performed By: #### C RP, RFP, CBC, FERR #### [address] [place] [address] eGFR- Amer. >60 Normal >60 [facility] Comment on above: Performed By: #### C RP, RFP, CBC, FERR #### [address] [place] [address] eGFR-All Other Races >60 Normal >60 [facility] Comment on above: Result Comment: eGFR [...] #### C RP, RFP, CBC, FERR #### [address] [place] [address] Glucose [Mass/Vol] 80 mg/dL Normal 74-99 [facility] Comment on above: Performed By: #### C RP, RFP, CBC, FERR #### [address] [place] [address] Phosphate [Mass/Vol] 2.9 mg/dL Normal 2.5-4.5 [facility] Comment on above: Performed By: #### C RP, RFP, CBC, FERR #### [address] [place] [address] Potassium [Moles/Vol] 4.3 mmol/L Normal 3.7-5.1 [facility] Comment on above: Performed By: #### C RP, RFP, CBC, FERR #### [address] [place] [address] Sodium [Moles/Vol] 139 mmol/L Normal 136-144 [facility] Comment on above: Performed By: #### C RP, RFP, CBC, FERR #### [address] [place] [address] Urea nitrogen [Mass/Vol] 13 mg/dL Normal 7-21 [facility] Comment on above: Result Comment: Felipe mmended reference range provided for this age range is published by the instrument adjunct writing instructor. Adult reference ranges have been verified. Performed By: #### C RP, RFP, CBC, FERR #### [address] [place] [address] ALLIED HEALTHon 04-15-2021 [facility] HEALTH HNO ID: [id number] Author: Megan Blanc RDMS Service: Radiology Author Type: Tubing Drier Type: Allied Health Filed: 04/15/2021 5:09 PM [...] RDMS April 15, 2021 5:09 PM Normal [facility] C-Reactive Proteinon 021 C-Reactive Protein 5.1 mg/dL High <0.9 [facility] Comment on above: Performed By: #### C RP #### [facility] [address] [place] [address] CONSULT PROGon 04-15-2021 CONSULT PROG HNO ID: [id number] Author: Monroe Stevens MD Service: Infectious Disease [...] inflammatory markers AND continue supportive measures Normal [facility] D dimeron 04-15-2021 D dimer 1540 ng/mL FEU High <500 [facility] Comment on above: Result Comment: 500 [...] #### C RP, RFP, CBC, FERR #### [facility] [address] [place], [place] [id number] NURSING PROGon 04-15-2021 NURSING PROG HNO ID: [id number] Author: Claudia Salas RN Service: ? Author Type: Registered Nurse Type: Nursing Progress Note Filed: 04/15/2021 10:17 AM Note Text: Nursing Progress Note Patient Name: Bo Jacob Patient [facility] [place] [address] Daily Note: 1015 pt admitted [place] with increasing shortness of breath. Pt on 50 % venti mask, family at bedside. This note was completed by: Claudia Salas [facility] NURSING PROG HNO ID: [id number] Author: Akshat Julien RN Service: Nursing Author [...] at 50% and transfer patient to ICU. [facility] NURSING PROG HNO ID: [id number] Author: Jessie Martinez RN Service: Nursing Author Type: Registered Nurse Type: Nursing Progress Note Filed: 04/15/2021 7:58 AM Note Text: Nursing Progress Note Patient Name: Bo Jacob Patient Location: [id number] 2 Daily Note: Patient vitals sustained on 3 liters of oxygen; continues with continent diarrhea. Slept well for majority of the night. No s/s ?Of respiratory distress. Medicated with zofran for nausea per request with effective results. ? This note was completed by: Jessie Martinez Normal [facility] Procalcitoninon 04-15-2021 Procalcitonin 0.42 ng/mL High <0.09 [facility] Comment on above: Result Comment: For a guided interpretation of test results, please visit the Change in Procalcitonin Calculator, [email or web address]. Performed By: #### C RP, RFP, CBC, FERR #### [facility] [address] [place], [place] [id number] US DVT LOWER BILon 1 US DVT LOWER TRACEE * * *Final [...] of the left and right lower extremities. Memory Care Program Resident: PSCB Transcribe Date/Time: Apr 15 2021 9:15P Dictated by : MARISOL WOMACK MD This examination was interpreted and the report reviewed and electronically signed by: MARISOL WOMACK MD on Apr 15 2021 9:16PM EST [id number] [facility] XR CHEST 1V FRONTAL PORTon 0 [...] identified. OTHER: N/A IMPRESSION: Bilateral multifocal infiltrates. Memory Care Program Resident: RODO Transcribe Date/Time: Apr 15 2021 10:38A Dictated by : PHYLLIS VASQUEZ MD This examination was interpreted and the report reviewed and electronically signed by: PHYLLIS VASQUEZ MD on Apr 15 2021 10:39AM EST [id number] [facility] CONSULT PROGon 04-14-2021 CONSULT PROG HNO ID: [id number] Author: Rosendo Landin V, MD Service: Infectious [...] markers AND continue supportive measures Dr. Stevens irrigation laborer this weekend. This patient will be seen PRN your call. Please call answering service at [phone] should you need to reach the physician irrigation laborer. Rosendo Landin MD [facility] Office #: Fax #: Date AND Time Signed: April 14, 2021 11:15 AM Normal [facility] Comp Metabolic Panelon 04-14 Albumin [Mass/Vol] 3.2 g/dL Low 4.0-4.9 [facility] Comment on above: Performed By: #### C RP, RFP, CBC, FERR #### [facility] [address] [facility] [place] [address] ALP [Catalytic activity/Vol] 62 U/L Normal 34-123 [facility] Comment on above: Performed By: #### C RP, RFP, CBC, FERR #### [facility] [address] [facility] [place] [address] ALT [Catalytic activity/Vol] 25 U/L Normal 0-33 [facility] Comment on above: Performed By: #### C RP, RFP, CBC, FERR #### [facility] [address] [facility] [place] [address] Anion gap [Moles/Vol] 8 mmol/L Normal 0-15 [facility] Comment on above: Performed By: #### C RP, RFP, CBC, FERR #### [facility] [address] [place] [address] AST [Catalytic activity/Vol] 35 U/L High 0-32 [facility] Comment on above: Performed By: #### C RP, RFP, CBC, FERR #### [facility] [address] [facility] [place] [address] Bilirubin [Mass/Vol] 0.3 mg/dL Normal 0.2-1.3 [facility] Comment on above: Performed By: #### C RP, RFP, CBC, FERR #### [address] [place] [address] Calcium [Mass/Vol] 8.9 mg/dL Normal 8.5-10.2 [facility] Comment on above: Result Comment: Felipe mmended reference range provided for this age range is published by the instrument adjunct writing instructor. Adult reference ranges have been verified. Performed By: #### C RP, RFP, CBC, FERR #### [address] [place] [address] Chloride [Moles/Vol] 104 mmol/L Normal 97-105 [facility] Comment on above: Performed By: #### C RP, RFP, CBC, FERR #### [address] [place] [address] CO2 [Moles/Vol] 28 mmol/L Normal 22-30 [facility] Comment on above: Performed By: #### C RP, RFP, CBC, FERR #### [facility] [id number] [place] [address] [place] [address] Creatinine [Mass/Vol] 1.08 mg/dL High 0.58-0.96 [facility] Comment on above: Performed By: #### C RP, RFP, CBC, FERR #### [facility] [id number] [place] [address] [place] [address] eGFR- Amer. >60 Normal >60 [facility] Comment on above: Performed By: #### C RP, RFP, CBC, FERR #### [place] [address] [facility] [place] [address] eGFR-All Other Races 51 . Low >60 [facility] Comment on above: Result Comment: eGFR [...] #### C RP, RFP, CBC, FERR #### [address] [place] [address] Glucose [Mass/Vol] 78 mg/dL Normal 74-99 [facility] Comment on above: Performed By: #### C RP, RFP, CBC, FERR #### [address] [place] [address] Potassium [Moles/Vol] 4.0 mmol/L Normal 3.7-5.1 [facility] Comment on above: Performed By: #### C RP, RFP, CBC, FERR #### [address] [place] [address] Protein [Mass/Vol] 6.1 g/dL Low 6.6-8.7 [facility] Comment on above: Performed By: #### C RP, RFP, CBC, FERR #### [address] [place] [address] Sodium [Moles/Vol] 140 mmol/L Normal 136-144 [facility] Comment on above: Performed By: #### C RP, RFP, CBC, FERR #### [address] [place] [address] Urea nitrogen [Mass/Vol] 24 mg/dL High 7-21 [facility] Comment on above: Result Comment: Felipe mmended reference range provided for this age range is published by the instrument adjunct writing instructor. Adult reference ranges have been verified. Performed By: #### C RP, RFP, CBC, FERR #### [facility] [address] [facility] [place] [address] Expedited [id number] 04-14-20 21 SARS-CoV-2 (COVID-19) RNA KRISTOFER+probe Ql (Unsp spec) UPPER RESPIRATORY TRACT SWAB Normal [facility] Comment on above: Result Comment: Call ed to and read back by: Mariusz Chandler RN [facility] 4 [facility] 04/14/21 1859 T Conn Performed By: #### E XCOVD ####[facility] [facility]., [place] [phone] SARS-CoV-2 (COVID-19) RNA KRISTOFER+probe Ql (Unsp spec) Positive for COVID19 (SARS CoV2) by RT-PCR or equivalent method. Critically abnormal Negative for COVID19 (SARS CoV2) by RT-PCR or equivalent method. [facility] Comment on above: Result Comment: If y our test results are positive, you have tested positive for the presence of the virus associated with COVID-19. This is a stressful time and if you are a [facility] patient, we will support you by closely monitoring your symptoms and providing supportive resources that can ease your recovery. Our team will call you regularly and have you enter your symptoms in MyChart, so that we can provide the best care possible. This test has been authorized by FDA under an Emergency Use Authorization (EUA). Performed By: #### E XCOVD ####[facility] [facility]., [place] [phone] NURSING PROGon 04-14-2021 NURSING PROG HNO ID: [id number] Author: Erika Chandler RN Service: ? Author Type: Registered Nurse Type: Nursing Progress Note Filed: 04/14/2021 3:34 PM Note Text: Nursing Progress Note Patient Name: Bo Jacob Patient Location: [place] [address]/[id number] 2 Daily Note: 0800: AOx3. Non prod cough, 4L NC. Lungs diminished. External cath wnl. SB-SR on telemetry. Call light within reach. 1530: Covid swab sent to lab. This note was completed by: Erika Chandler [facility] NURSING PROG HNO ID: [id number] Author: Jessie Martinez RN Service: Nursing Author Type: Registered Nurse Type: Nursing Progress Note Filed: 04/14/2021 6:58 AM Note Text: Nursing Progress Note Patient Name: Bo Jacob Patient Location: [id number] 2 Daily Note: Patient vitals sustained on 3 liters of oxygen; continues with continent diarrhea. Slept well for majority of the night. No s/s Of respiratory distress. Medicated with zofran for nausea per request. ? This note was completed by: Jessie Martinez [facility] THERAPY NTon 04-14-2021 THERAPY NT HNO ID: [id number] Author: Destinee Hercules PTA Service: Physical Therapy Author Type: Tumblers Supervisor Type: Therapy (PT/OT/Speech/Resp) Filed: 04/14/2021 2:59 PM Note Text: Attestation signed by Radha Buck PT at 04/14/2021 3:40 PM I reviewed and agree with the documentation corresponding to this therapy visit. SIGNATURE: Radha Buck, PT DATE: April 14, 2021 TIME: 3:40 PM PHYSICAL THERAPY MISSED VISIT SERVICE DATE: 04/14/2021 SERVICE TIME: 1430 to 1440 ROOM: [place] [address] Attempted Treatment. Patient not seen due to Declined. Fatigued after 2 out of town visitors and now requesting bed be d/t diarrhea from iv antibiotic . Pt placed on bed be with call button in reach. Nursing aware . SIGNATURE: Destinee Hercules PTA PATIENT NAME: Bo Jacob DATE: April 14, 2021 TIME: 2:56 PM Normal [facility] C-Reactive Proteinon 021 C-Reactive Protein 9.9 mg/dL High <0.9 [facility] Comment on above: Performed By: #### C RP ####[facility] [place], [place] [phone] C-Reactive Protein 14.0 mg/dL High <0.9 [facility] Comment on above: Performed By: #### C MP, CRP #### [facility] [address] [place] [address] CONSULT PROGon 04-13-2021 CONSULT PROG HNO ID: [id number] Author: Afsaneh Heard MD Service: Infectious Disease [...] much improved AFSANEH HEARD M.D [facility] [phone] [facility] Comp Metabolic Panelon 04-13 Albumin [Mass/Vol] 3.3 g/dL Low 4.0-4.9 [facility] Comment on above: Performed By: #### C MP, CRP #### [facility] [address] [facility] [place] [address] ALP [Catalytic activity/Vol] 76 U/L Normal 34-123 [facility] Comment on above: Performed By: #### C MP, CRP #### [facility] [address] [facility] [place] [address] ALT [Catalytic activity/Vol] 28 U/L Normal 0-33 [facility] Comment on above: Performed By: #### C MP, CRP #### [facility] [address] [facility] [place] [address] Anion gap [Moles/Vol] 12 mmol/L Normal 0-15 [facility] Comment on above: Performed By: #### C MP, CRP #### [facility] [address] [facility] [place] [address] AST [Catalytic activity/Vol] 45 U/L High 0-32 [facility] Comment on above: Performed By: #### C MP, CRP #### [facility] [address] [facility] [place] [address] Bilirubin [Mass/Vol] 0.3 mg/dL Normal 0.2-1.3 [facility] Comment on above: Performed By: #### C MP, CRP #### [facility] [address] [facility] [place] [address] Calcium [Mass/Vol] 9.1 mg/dL Normal 8.5-10.2 [facility] Comment on above: Result Comment: Felipe mmended reference range provided for this age range is published by the instrument adjunct writing instructor. Adult reference ranges have been verified. Performed By: #### C MP, CRP #### [facility] [address] [place] [address] [place] [address] Chloride [Moles/Vol] 102 mmol/L Normal 97-105 [facility] Comment on above: Performed By: #### C MP, CRP #### [facility] [address] [facility] [place] [address] CO2 [Moles/Vol] 26 mmol/L Normal 22-30 [facility] Comment on above: Performed By: #### C MP, CRP #### [facility] [address] [facility] [place] [address] Creatinine [Mass/Vol] 1.04 mg/dL High 0.58-0.96 [facility] Comment on above: Performed By: #### C MP, CRP #### [facility] [address] [facility] [place] [address] eGFR- Amer. >60 Normal >60 [facility] Comment on above: Performed By: #### C MP, CRP #### [facility] [address] [facility] [place] [address] eGFR-All Other Races 53 . Low >60 [facility] Comment on above: Result Comment: eGFR (Estimated GFR) Units of measure: mL/min/1.73 meters squared eGFR is derived from the reexpressed MDRD Study equation using the following parameters: serum creatinine, age, gender and race. The creatinine assay has been calibrated to be traceable to [facility]N[place]. An eGFR <60 mL/min/1.73m2 for >3 months is consistent with chronic kidney disease. Refer to KDOQI guidelines for clinical interpretation. In patients with unstable renal function, e.g. those with acute kidney injury, the eGFR may not accurately reflect actual GFR. Performed By: #### C MP, CRP #### [facility] [address] [facility] [place] [address] Glucose [Mass/Vol] 89 mg/dL Normal 74-99 [facility] Comment on above: Performed By: #### C MP, CRP #### [facility] [address] [facility] [place] [address] Potassium [Moles/Vol] 4.2 mmol/L Normal 3.7-5.1 [facility] Comment on above: Performed By: #### C MP, CRP #### [place] [address] [facility] [place] [address] Protein [Mass/Vol] 6.6 g/dL Normal 6.6-8.7 [facility] Comment on above: Performed By: #### C MP, CRP #### [place] [address] [facility] [place] [address] Sodium [Moles/Vol] 140 mmol/L Normal 136-144 [facility] Comment on above: Performed By: #### C MP, CRP #### [place] [address] [facility] [place] [address] Urea nitrogen [Mass/Vol] 27 mg/dL High 7-21 [facility] Comment on above: Result Comment: Felipe mmended reference range provided for this age range is published by the instrument adjunct writing instructor. Adult reference ranges have been verified. Performed By: #### C MP, CRP #### [place] [id number] [facility] [place] [address] NURSING PROGon 04-13-2021 NURSING PROG HNO ID: [id number] Author: Erich Castro RN Service: Nursing Author Type: Registered Nurse Type: Nursing Progress Note Filed: 04/13/2021 4:29 PM Note Text: Nursing Progress Note Patient Name: Bo Jacob Patient Location: [id number] 2 Daily Note:0730 Report obtained at this time Assessment completed, pt has no c/o at this time This note was completed by: Erich Castro [facility] NURSING PROG HNO ID: [id number] Author: Jessie Martinez RN Service: Nursing Author Type: Registered Nurse Type: Nursing Progress Note Filed: 04/13/2021 8:25 AM Note Text: Nursing Progress Note Patient Name: Bo Jacob Patient Location: [id number] 2 Daily Note: Patient vitals sustained on 3 liters of oxygen; continues with continent diarrhea. Slept well for majority of the night. No s/s Of respiratory distress. This note was completed by: Jessie Martinez [facility] C-Reactive Proteinon 021 C-Reactive Protein 27.1 mg/dL High <0.9 [facility] Comment on above: Performed By: #### C RP, RFP, CBC, FERR #### [facility] [address] [place] [address] CONSULT PROGon 04-12-2021 CONSULT PROG HNO ID: [id number] Author: Afsaneh Heard MD Service: Infectious Disease [...] 11 K AFSANEH HEARD M.D ID consultants [phone] Normal [facility] Comp Metabolic Panelon 04-12 Albumin [Mass/Vol] 3.4 g/dL Low 4.0-4.9 [facility] Comment on above: Performed By: #### C RP, RFP, CBC, FERR #### [facility] [address] [place] [address] ALP [Catalytic activity/Vol] 69 U/L Normal 34-123 [facility] Comment on above: Performed By: #### C RP, RFP, CBC, FERR #### [facility] [address] [address] ALT [Catalytic activity/Vol] 25 U/L Normal 0-33 [facility] Comment on above: Performed By: #### C RP, RFP, CBC, FERR #### [facility] [address] [facility] [place] [address] Anion gap [Moles/Vol] 12 mmol/L Normal 0-15 [facility] Comment on above: Performed By: #### C RP, RFP, CBC, FERR #### [facility] [address] [facility] [place] [address] AST [Catalytic activity/Vol] 41 U/L High 0-32 [facility] Comment on above: Performed By: #### C RP, RFP, CBC, FERR #### [place] [address] [facility] [place] [address] Bilirubin [Mass/Vol] 0.2 mg/dL Normal 0.2-1.3 [facility] Comment on above: Performed By: #### C RP, RFP, CBC, FERR #### [address] [place] [address] Calcium [Mass/Vol] 8.6 mg/dL Normal 8.5-10.2 [facility] Comment on above: Result Comment: Felipe mmended reference range provided for this age range is published by the instrument adjunct writing instructor. Adult reference ranges have been verified. Performed By: #### C RP, RFP, CBC, FERR #### [facility] [address] [facility] [place] [address] Chloride [Moles/Vol] 100 mmol/L Normal 97-105 [facility] Comment on above: Performed By: #### C RP, RFP, CBC, FERR #### [facility] [address] [facility] [place] [address] CO2 [Moles/Vol] 25 mmol/L Normal 22-30 [facility] Comment on above: Performed By: #### C RP, RFP, CBC, FERR #### [facility] [address] [facility] [place] [address] Creatinine [Mass/Vol] 1.03 mg/dL High 0.58-0.96 [facility] Comment on above: Performed By: #### C RP, RFP, CBC, FERR #### [facility] [address] [facility] [place] [address] eGFR- Amer. >60 Normal >60 [facility] Comment on above: Performed By: #### C RP, RFP, CBC, FERR #### [facility] [address] [facility] [place] [address] eGFR-All Other Races 54 . Low >60 [facility] Comment on above: Result Comment: eGFR [...] #### C RP, RFP, CBC, FERR #### [facility] [address] [facility] [place] [address] Glucose [Mass/Vol] 142 mg/dL High 74-99 [facility] Comment on above: Performed By: #### C RP, RFP, CBC, FERR #### [facility] [address] [facility] [place] [address] Potassium [Moles/Vol] 4.2 mmol/L Normal 3.7-5.1 [facility] Comment on above: Performed By: #### C RP, RFP, CBC, FERR #### [facility] [address] [facility] [place] [address] Protein [Mass/Vol] 6.4 g/dL Low 6.6-8.7 [facility] Comment on above: Performed By: #### C RP, RFP, CBC, FERR #### [facility] [address] [facility] [place] [address] Sodium [Moles/Vol] 137 mmol/L Normal 136-144 [facility] Comment on above: Performed By: #### C RP, RFP, CBC, FERR #### [facility] [address] [place]., [place] [address] Urea nitrogen [Mass/Vol] 23 mg/dL High 7-21 [facility] Comment on above: Result Comment: Felipe mmended reference range provided for this age range is published by the instrument adjunct writing instructor. Adult reference ranges have been verified. Performed By: #### C RP, RFP, CBC, FERR #### [facility] [address] [place] [address] NURSING PROGon 04-12-2021 NURSING PROG HNO ID: [id number] Author: Ondina Mauricio RN Service: ? Author Type: Registered Nurse Type: Nursing Progress Note Filed: 04/12/2021 11:01 AM Note Text: Nursing Progress Note Patient Name: Bo Jacob Patient Location: [id number] 2 Transfer Note: Patient transferred into room/unit 455-2 in stable condition. Actions taken: No futher actions taken at this time. Will continue to monitor and check with patient. This note was completed by: Ondina Mauricio [facility] NURSING PROG HNO ID: [id number] Author: Amber Ramirez RN Service: ? Author Type: Registered Nurse Type: Nursing Progress Note Filed: 04/12/2021 10:20 AM Note Text: Nursing Progress Note Patient Name: Bo Jacob [facility] Daily Note: 0715: assumed care of pt 0800: assessment as charted. Resting comfortably in bed. No s/s of distress, will continue to monitor. Daughter at bedside, updates given. 1015: report called to akshat Donnelly This note was completed by: Amber Ramirez Normal [facility] Procalcitoninon 04-12-2021 Procalcitonin 6.99 ng/mL High <0.09 [facility] Comment on above: Result Comment: For a guided interpretation of test results, please visit the Change in Procalcitonin Calculator, [email or web address]. Performed By: #### C RP, RFP, CBC, FERR #### [facility] [address] [place] [address] THERAPY NTon 04-12-2021 THERAPY NT HNO ID: [id number] Author: Geeta Nazario, PT Service: Physical Therapy Author Type: Physical Therapist Type: Therapy (PT/OT/Speech/Resp) Filed: 04/12/2021 11:28 AM Note Text: Physical Therapy Evaluation SERVICE DATE: 04/12/2021 SERVICE TIME: 0940 to 1030 ROOM: [place] [address] Recommended Discharge Disposition: Subacute/SNF Recommended Discharge Disposition [...] support and/or ph (more content not included)... [facility] THERAPY NT HNO ID: [id number] Author: Alice Nava OT/L Service: Occupational Therapy Author Type: Occupational Therapist Type: Therapy (PT/OT/Speech/Resp) Filed: 04/13/2021 2:12 PM Note Text: Occupational Therapy Evaluation SERVICE DATE: 04/12/2021 SERVICE TIME: 1045 to 1125 ROOM: [place] [address] Recommended Discharge Disposition: Subacute/SNF Recommended Discharge Disposition [...] daily living (ADL) Interventions Provided: Evaluation;Therapeutic Activity (92440);Self Fdc Management (29469) $ Evaluation-Low (63360) Billed Units: 1 unit Therapeutic Activity (15160) Treatment Minutes: 10 $ Therapeutic Activity (51355) Billed Units: 1 unit Self Fdc Management (11040) Treatment Minutes: 15 $ Self Fdc Management (97325) Billed Units: 1 unit Training AND education [...] SIGNATURE: Alice Nava OT/Elijah PATIENT NAME: Bo Jacob DATE: April 13, 2021 TIME: 2:11 PM [facility] ALLIED HEALTHon 04-11-2021 ALLIED HEALTH HNO ID: [id number] Author: Leslie Rodriguez Towboat Captain Service: Infection Prevention Author Type: ? Type: [...] of Positive Test(s): 04/06/2021 SIGNATURE: Leslie Rodriguez Towboat Captain PATIENT NAME: Bo Jacob DATE: April 11, 2021 TIME: 7:49 AM PAGER/CONTACT #: [phone] Infection Prevention after hours/weekend pager: [phone] [facility] C-Reactive Proteinon 021 C-Reactive Protein 25.0 mg/dL High <0.9 [facility] Comment on above: Performed By: #### C RP, RFP, CBC, FERR #### [facility] [address] [place] [address] CBCon 04-11-2021 Absolute nRBC <0.01 Normal <0.01 [facility] Comment on above: Performed By: #### C RP, RFP, CBC, FERR #### [facility] [address] [place] [address] Erythrocyte distribution width (RBC) [Ratio] 13.2 % Normal 11.5-15.0 [facility] Comment on above: Performed By: #### C RP, RFP, CBC, FERR #### [address] [place] [address] Hematocrit (Bld) [Volume fraction] 35.6 % Low 36.0-46.0 [facility] Comment on above: Performed By: #### C RP, RFP, CBC, FERR #### [address] [place] [address] Hemoglobin (Bld) [Mass/Vol] 11.7 g/dL Normal 11.5-15.5 [facility] Comment on above: Performed By: #### C RP, RFP, CBC, FERR #### [address] [place] [address] MCH 30.2 pG Normal 26.0-34.0 [facility] Comment on above: Performed By: #### C RP, RFP, CBC, FERR #### [address] [place] [address] MCHC (RBC) [Mass/Vol] 32.9 g/dL Normal 30.5-36.0 [facility] Comment on above: Performed By: #### C RP, RFP, CBC, FERR #### [address] [place] [address] MCV (RBC) [Entitic vol] 91.8 fL Normal 80.0-100.0 [facility] Comment on above: Performed By: #### C RP, RFP, CBC, FERR #### [address] [place] [address] Platelet mean volume (Bld) [Entitic vol] 9.8 fL Normal 9.0-12.7 [facility] Comment on above: Performed By: #### C RP, RFP, CBC, FERR #### [facility] [address] [facility] [place] [address] Platelets (Bld) [#/Vol] 178 10*3/uL Normal 150-400 [facility] Comment on above: Performed By: #### C RP, RFP, CBC, FERR #### [facility] [address] [facility] [place] [address] RBC (Bld) [#/Vol] 3.88 10*6/uL Low 3.90-5.20 [facility] Comment on above: Performed By: #### C RP, RFP, CBC, FERR #### [address] [place] [address] WBC (Bld) [#/Vol] 11.65 10*3/uL High 3.70-11.00 [facility] Comment on above: Performed By: #### C RP, RFP, CBC, FERR #### [address] [place] [address] CONSULTon 04-11-2021 CONSULT HNO ID: [id number] Author: Cresencio Wylie RPh Service: Pharmacy Author [...] have any questions, please contact pharmacy at [phone]. Age: [age] year old Allergies: ALLERGIES Allergen [...] Levels: No results found for: MICHAEL Wylie [facility] CONSULT HNO ID: [id number] Author: Afsaneh Heard MD Service: Infectious Disease Author Type: Physician Type: Consults Filed: 04/12/2021 7:44 AM Note Text: [facility] Consults ORIGINATOR: MD CECIL Lopez THERESE C ACCTNUM: [id number] SERVICE: ICU LOCATION: [place] [address] ATTENDING PHYSICIAN: Rolo Oates MD DATE OF SERVICE: 04/11/2021 TIME OF SERVICE: 10:05 AM REASON FOR REFERRAL: Severe COVID infection. HISTORY: This 65-year-old female with past medical history significant for breast cancer, who is currently on Aromasin, who presented to [facility] with concerns about worsening respiratory status. [...] ICU, intubated, in a local hospital in [place]. REVIEW OF SYSTEMS: As in History of [...] for the referral. Carl Heard MD HDJ:MedQ /[id number] [facility] CONSULT HNO ID: [id number] Author: Afsaneh Heard MD Service: Infectious Disease [...] AND continue supportive measures AFSANEH HEARD M.D [phone] April 11, 2021 10:05 AM [facility] Comp Metabolic Panelon 04-11 Albumin [Mass/Vol] 3.5 g/dL Low 4.0-4.9 [facility] Comment on above: Performed By: #### C RP, RFP, CBC, FERR #### [facility] [address] [place] [address] ALP [Catalytic activity/Vol] 74 U/L Normal 34-123 [facility] Comment on above: Performed By: #### C RP, RFP, CBC, FERR #### [facility] [address] [place] [address] ALT [Catalytic activity/Vol] 24 U/L Normal 0-33 [facility] Comment on above: Performed By: #### C RP, RFP, CBC, FERR #### [facility] [address] [place] [address] Anion gap [Moles/Vol] 14 mmol/L Normal 0-15 [facility] Comment on above: Performed By: #### C RP, RFP, CBC, FERR #### [address] [place] [address] AST [Catalytic activity/Vol] 50 U/L High 0-32 [facility] Comment on above: Performed By: #### C RP, RFP, CBC, FERR #### [address] [place] [address] Bilirubin [Mass/Vol] 0.2 mg/dL Normal 0.2-1.3 [facility] Comment on above: Performed By: #### C RP, RFP, CBC, FERR #### [address] [place] [address] Calcium [Mass/Vol] 8.7 mg/dL Normal 8.5-10.2 [facility] Comment on above: Result Comment: Felipe mmended reference range provided for this age range is published by the instrument adjunct writing instructor. Adult reference ranges have been verified. Performed By: #### C RP, RFP, CBC, FERR #### [address] [place] [address] Chloride [Moles/Vol] 102 mmol/L Normal 97-105 [facility] Comment on above: Performed By: #### C RP, RFP, CBC, FERR #### [address] [place] [address] CO2 [Moles/Vol] 19 mmol/L Low 22-30 [facility] Comment on above: Performed By: #### C RP, RFP, CBC, FERR #### [address] [place] [address] Creatinine [Mass/Vol] 1.10 mg/dL High 0.58-0.96 [facility] Comment on above: Performed By: #### C RP, RFP, CBC, FERR #### [address] [place] [address] eGFR- Amer. >60 Normal >60 [facility] Comment on above: Performed By: #### C RP, RFP, CBC, FERR #### [place] [address] [facility] [place] [address] eGFR-All Other Races 50 . Low >60 [facility] Comment on above: Result Comment: eGFR [...] #### C RP, RFP, CBC, FERR #### [address] [place] [address] Glucose [Mass/Vol] 110 mg/dL High 74-99 [facility] Comment on above: Performed By: #### C RP, RFP, CBC, FERR #### [address] [place] [address] Potassium [Moles/Vol] 4.2 mmol/L Normal 3.7-5.1 [facility] Comment on above: Performed By: #### C RP, RFP, CBC, FERR #### [address] [place] [address] Protein [Mass/Vol] 6.4 g/dL Low 6.6-8.7 [facility] Comment on above: Performed By: #### C RP, RFP, CBC, FERR #### [address] [place] [address] Sodium [Moles/Vol] 135 mmol/L Low 136-144 [facility] Comment on above: Performed By: #### C RP, RFP, CBC, FERR #### [facility] [address] [facility] [place]., [place] [address] Urea nitrogen [Mass/Vol] 18 mg/dL Normal 03-08 [facility] Comment on above: Result Comment: Felipe mmended reference range provided for this age range is published by the instrument adjunct writing instructor. Adult reference ranges have been verified. Performed By: #### C RP, RFP, CBC, FERR #### [facility] [address] [facility] [place] [address] Ferritinon 04-11-2021 Ferritin [Mass/Vol] 500.0 ng/mL High 14.7-205.1 [facility] Comment on above: Performed By: #### C RP, RFP, CBC, FERR #### [facility] [address] [facility] [place] [address] HISTORY PHYSICALon HISTORY PHYSICAL HNO ID: [id number] Author: Gavin Gonzalez MD Service: Hospital Medicine Author Type: Physician Type: HANDP Filed: 04/11/2021 6:33 AM Note Text: DEPARTMENT OF HOSPITAL MEDICINE HISTORY AND PHYSICAL EXAMINATION PATIENT NAME: Bo Jacob LENGTH OF STAY: 0 HOSPITAL ROOM: [place] [address]/[place] [address]* ; AGE: 2 1955; 65 year old ADMITTING PHYSICIAN: Sukumar Castellon MD DATE OF ADMISSION: No admission date for patient encounter. SERVICE - Hospital Medicine Patient admitted to hospitalist team. 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 She presented with a chief complaint of shortness of breath and cough reports symptoms have been going on for almost a week and see testing COVID-19 on 04/06/21. Her had similar symptoms and was diagnosed with COVID-19 infection and he is currently admitted at [facility] in the ICU. She was prescribed [...] consistent with viral pneumonitis. On arrival to [facility] O2 inc to 4-5 lit to keep [...] Soft, non-tender, non-diste (more content not included)... [facility] NURSING PROGon 04-11-2021 NURSING PROG HNO ID: [id number] Author: Jessie Martinez RN Service: Nursing Author Type: Registered Nurse Type: Nursing Progress Note Filed: 04/11/2021 6:07 AM Note Text: Nursing Progress Note Patient Name: Bo Jacob Patient Location: [id number] 2 Daily Note: Patient admitted and assessed [...] This note was completed by: Jessie Martinez [facility] Procalcitoninon 04-11-2021 Procalcitonin 7.12 ng/mL High <0.09 [facility] Comment on above: Result Comment: For a guided interpretation of test results, please visit the Change in Procalcitonin Calculator, [email or web address]. Performed By: #### C RP, RFP, CBC, FERR #### [facility] [address] [facility] [place] [address] Staph aureus PCRon 1 MRSA PCR Negative [facility] Comment on above: Performed By: #### C RP, RFP, CBC, FERR #### [facility] [address] [facility] [place] [address] S aureus Spec Source Nasal [facility] Comment on above: Performed By: #### C RP, RFP, CBC, FERR #### [facility] [address] [facility] [place] [address] Staph aureus PCR Positive Critically abnormal [facility] Comment on above: Performed By: #### C RP, RFP, CBC, FERR #### [facility] [address] [facility] [place] [address] [place] [address] Laboratory - Chemistry and C hemistry - challengeon 02-15-2021 Magnesium [Mass/Vol] 2.1 mg/dL 1.6-2.6 [facility] Basophil percentageon 2020 Basophil percentage 4.3 mg/dL 2.5-4.9 [facility] Potassiumon 01-25-2021 Potassium [Mass/Vol] 4.3 mg/dL 2.5-4.9 [facility] Trichomonas screening teston 01-25-2021 Phosphorus Level 4.3 mg/dL 2.5-4.9 [facility] ALLIED HEALTHon 06-10-2020 ALLIED HEALTH HNO ID: [id number] Author: Nicolle Kwon) GAVI Rojas Service: Radiology Author Type: Clinical Tubing Drier Type: Allied Health Filed: 06/10/2020 4:12 PM [...] June 10, 2020 TIME: 4:[address] [facility] CBC and Differentialon 06-10 Abs Baso 0.05 k/uL Normal <0.11 [facility] Comment on above: Performed By: #### C MP, CBCDIF ####[facility] [address] [place] [address] Abs [place] 0.42 k/uL Normal <0.87 [facility] Comment on above: Performed By: #### C NIURKA CBCDIF ####[place] [address] Abs Neut 4.78 k/uL Normal 1.45-7.50 [facility] Comment on above: Performed By: #### C MP, CBCDIF ####[place] [address] Absolute nRBC <0.01 Normal <0.01 [facility] Comment on above: Performed By: #### C MP, CBCDIF ####[place] [address] Basophils/100 WBC (Bld) 0.7 % [facility] Comment on above: Performed By: #### C MP, CBCDIF ####[place] [address] DTYPE Auto Diff Normal [facility] Comment on above: Performed By: #### C MP, CBCDIF ####[place] [address] Eosinophils (Bld) [#/Vol] 0.10 10*3/uL Normal <0.46 [facility] Comment on above: Performed By: #### C MP, CBCDIF ####[place] [address] Eosinophils/100 WBC (Bld) 1.4 % Normal [facility] Comment on above: Performed By: #### C MP, CBCDIF ####[facility] [address] [place] [address] Erythrocyte distribution width (RBC) [Ratio] 13.2 % Normal 11.5-15.0 [facility] Comment on above: Performed By: #### C NIURKA, CBCDIF ####[facility] [address] [place], [place] [address] Hematocrit (Bld) [Volume fraction] 46.2 % High 36.0-46.0 [facility] Comment on above: Performed By: #### C NIURKA, CBCDIF ####[facility] [address] [place], [place] [address] Hemoglobin (Bld) [Mass/Vol] 15.0 g/dL Normal 11.5-15.5 [facility] Comment on above: Performed By: #### C NIURKA, CBCDIF ####[place] [id number] Lymphocytes (Bld) [#/Vol] 1.71 10*3/uL Normal 1.00-4.00 [facility] Comment on above: Performed By: #### C NIURKA, CBCDIF ####[facility] [address] [place], [place] [address] Lymphocytes/100 WBC (Bld) 24.2 % Normal [facility] Comment on above: Performed By: #### C NIURKA, CBCDIF ####[facility] [address] [place], [place] [address] MCH (RBC) [Entitic mass] 30.6 pG Normal 26.0-34.0 [facility] Comment on above: Performed By: #### C NIURKA, CBCDIF ####[facility] [address] [place], [place] [address] MCHC (RBC) [Mass/Vol] 32.5 g/dL Normal 30.5-36.0 [facility] Comment on above: Performed By: #### C NIURKA, CBCDIF ####[place] [address] MCV (RBC) [Entitic vol] 94.3 fL Normal 80.0-100.0 [facility] Comment on above: Performed By: #### C NIURKA, CBCDIF ####[facility] [address] [place], [place] [address] Monocytes/100 WBC (Bld) 5.9 % Normal [facility] Comment on above: Performed By: #### C MP, CBCDIF ####[facility] Y[address]qqicd7012 [address] Neutrophils/100 WBC (Bld) 67.8 % Normal [facility] Comment on above: Performed By: #### C MP, CBCDIF ####[facility] Qviblnoaxe3850 [address] NRBCs 0.0 /[address] [facility] Comment on above: Performed By: #### C MP, CBCDIF ####[facility] [address] [place] [address] Platelet mean volume (Bld) [Entitic vol] 9.8 fL Normal 9.0-12.7 [facility] Comment on above: Performed By: #### C MP, CBCDIF ####[facility] Ihfcvobgtm8144 [address] Platelets (Bld) [#/Vol] 260 10*3/uL Normal 150-400 [facility] Comment on above: Performed By: #### C MP, CBCDIF ####[facility] [address] [place] [address] RBC (Bld) [#/Vol] 4.90 10*6/uL Normal 3.90-5.20 [facility] Comment on above: Performed By: #### C MP, CBCDIF ####[facility] Rxoodrmqaa4098 [address] WBC (Bld) [#/Vol] 7.06 10*3/uL Normal 3.70-11.00 [facility] Comment on above: Performed By: #### C MP, CBCDIF ####[facility] [address] [place] [phone] CT BRAIN WO IVCONon 06-10-[address] BRAIN WO IVCON * * *Final Report* * * DATE OF EXAM: Jun 10 2020 4:11PM [facility] 0504 - CT BRAIN WO IVCON / [...] extracranial soft tissues are grossly normal. NECK: Diagnostic Technician (topogram) images: Unremarkable Postop: There is a [...] CT BRAIN. NORMAL NECK AND INTRACRANIAL CTA. Memory Care Program Resident: PSCB Transcribe Date/Time: Jun 10 2020 4:16P Dictated by : ANGIE BARCENAS MD This examination was interpreted and the report reviewed and electronically signed by: ANGIE BARCENAS MD on Jun 10 2020 4:22PM EST [id number] [facility] CTA HEAD W IVCONon 0 CTA HEAD W IVCON * * *Final Report* * * DATE OF EXAM: Jun 10 2020 4:11PM [facility] 0022 - CTA HEAD W IVCON / [...] extracranial soft tissues are grossly normal. NECK: Diagnostic Technician (topogram) images: Unremarkable Postop: There is a [...] CT BRAIN. NORMAL NECK AND INTRACRANIAL CTA. Memory Care [facility] Transcribe Date/Time: Jun 10 2020 4:16P Dictated by : ANGIE BARCENAS MD This examination was interpreted and the report reviewed and electronically signed by: ANGIE BARCENAS MD on Jun 10 2020 4:22PM EST [id number] [facility] CTA NECK W IVCONon 0 CTA NECK W IVCON * * *Final Report* * * DATE OF EXAM: Jun 10 2020 4:11PM [facility] 0024 - CTA NECK W IVCON / [...] extracranial soft tissues are grossly normal. NECK: Diagnostic Technician (topogram) images: Unremarkable Postop: There is a [...] CT BRAIN. NORMAL NECK AND INTRACRANIAL CTA. Memory Care Program Resident: PSCB Transcribe Date/Time: Jun 10 2020 4:16P Dictated by : ANGIE BARCENAS MD This examination was interpreted and the report reviewed and electronically signed by: ANGIE BARCENAS MD on Jun 10 2020 4:22PM EST [id number] Normal [facility] Comp Metabolic Panelon 06-10 Albumin [Mass/Vol] 4.6 g/dL Normal 3.9-4.9 [facility] Comment on above: Performed By: #### C NIURKA CBCDIF ####[facility] [address] [place] [address] ALP [Catalytic activity/Vol] 88 U/L Normal 34-123 [facility] Comment on above: Performed By: #### C NIURKA CBCDIF ####[facility] [address] [place] [address] ALT [Catalytic activity/Vol] 13 U/L Normal 7-38 [facility] Comment on above: Performed By: #### C NIURKA CBCDIF ####[facility] [address] [place] [address] Anion gap [Moles/Vol] 12 mmol/L Normal 9-18 [facility] Comment on above: Performed By: #### C NIURKA CBCDIF ####[facility] [address] [place] [address] AST [Catalytic activity/Vol] 16 U/L Normal 13-35 [facility] Comment on above: Performed By: #### C NIURKA CBCDIF ####[facility] [address] [place] [address] Bilirubin [Mass/Vol] 0.6 mg/dL Normal 0.2-1.3 [facility] Comment on above: Performed By: #### C NIURKA CBCDIF ####[facility] [address] [place] [address] Calcium [Mass/Vol] 9.4 mg/dL Normal 8.5-10.2 [facility] Comment on above: Performed By: #### C MP, CBCDIF ####[facility] [address] [place] [id number] Chloride [Moles/Vol] 106 mmol/L High 97-105 [facility] Comment on above: Performed By: #### C MP, CBCDIF ####[facility] [address] [place] [id number] CO2 [Moles/Vol] 25 mmol/L Normal 22-30 [facility] Comment on above: Performed By: #### C MP, CBCDIF ####[facility] [address] [place] [address] Creatinine [Mass/Vol] 0.84 mg/dL Normal 0.58-0.96 [facility] Comment on above: Performed By: #### C NIURKA, CBCDIF ####[facility] [address] [place] [address] eGFR- Amer. >[address] [facility] Comment on above: Performed By: #### C NIURKA, CBCDIF ####[facility] [address] [place] [phone] GFR/1.73 sq M predicted among non-blacks MDRD (S/P/Bld) [Vol rate/Area] mL/min/{1.73_m2} Normal [facility] Comment on above: Result Comment: eGFR [...] GFR. Performed By: #### C MP, CBCDIF ####[facility] [address] [place] [address] Glucose [Mass/Vol] 91 mg/dL Normal 74-99 [facility] Comment on above: Result Comment: The [place] Diabetes Association (ADA) provides guidance for cutoff [...] Standards of Medical Care in Diabetes 2016, [place] [employer]. Diabetes Care. 2016.39(Suppl 1). Performed By: #### C NIURKA, CBCDIF ####[facility] [address] [place] [address] Potassium [Moles/Vol] 4.1 mmol/L Normal 3.7-5.1 [facility] Comment on above: Performed By: #### C NIURKA, CBCDIF ####[facility] [address] [place] [address] Protein [Mass/Vol] 6.7 g/dL Normal 6.3-8.0 [facility] Comment on above: Performed By: #### C NIURKA, CBCDIF ####[facility] [address] [place] [address] Sodium [Moles/Vol] 143 mmol/L Normal 136-144 [facility] Comment on above: Performed By: #### C NIURKA, CBCDIF ####[facility] [address] [place] [address] Urea nitrogen [Mass/Vol] 12 mg/dL Normal 7-21 [facility] Comment on above: Performed By: #### C NIURKA, CBCDIF ####[facility] [address] [place] [address] ED NOTEon 06-10-2020 ED NOTE HNO ID: [id number] Author: Catrina HendricksonRn) BERNABE [place] Service: ? Author Type: Registered Nurse Type: ED Notes Filed: 06/10/2020 4:46 PM Note Text: Discharged pt. with diagnosis of headache. Discharge and follow up instructions given. Pt. verbalized understanding of discharge instructions. Pt. has no further questions and/or concerns at this time. Heplock d/c'd. Pt. ambulates with steady gait. [facility] ED NOTE HNO ID: [id number] Author: Catrina HendricksonRn) BERNABE [place] Service: ? Author Type: Registered Nurse Type: ED Notes Filed: 06/10/2020 3:42 PM Note Text: Pt placed on 1L NC per verbal order from Abelardo ROY. [facility] ED NOTE HNO ID: [id number] Author: Catrina (Rn) BERNABE [place] Service: ? [...] light within reach, ID, allergy band on. [facility] ED NOTE HNO ID: [id number] Author: Ann HendricksonRn) BERNABE Ward Service: Nursing Author Type: Registered [...] denies vision changes, balance problem, or weakness [facility] ED PROV NOTEon 06-10-2020 ED PROV NOTE HNO ID: [id number] Author: Hans Reynolds Service: Emergency Medicine Author Type: Physician Type: ED Provider Notes Filed: 06/10/2020 7:31 PM Note Text: ED Provider Note Patient Name: Bo C Mennell SERVICE DATE: 06/10/20 History Patient presents with: [...] strength in both upper and lower extremities, fgavew-cx-nyjd intact, mwly-vw-pcgo intact, rapid alternative movements intact. Psychiatric: Behavior: [...] CT BRAIN. NORMAL NECK AND INTRACRANIAL CTA. Memory Care Program Resident: PSYCHIATRIC Transcribe Date/Time: Jun 10 2020 4:16P Dictated by : ANGIE BARCENAS MD This examination was interpreted and the report reviewed and electronically signed by: ANGIE BARCENAS MD on Jun 10 2020 4:22PM EST CTA HEAD W IVCON Final Result IMPRESSION: NORMAL NONCONTRAST CT BRAIN. NORMAL NECK AND INTRACRANIAL CTA. Memory Care Program Resident: PSYCHIATRIC Transcribe Date/Time: Jun 10 2020 4:16P Dictated by : ANGIE BARCENAS MD This examination was interpreted and the report reviewed and electronically signed by: ANGIE BARCENAS MD on Jun 10 2020 4:22PM EST CTA NECK W IVCON Final Result IMPRESSION: NORMAL NONCONTRAST CT BRAIN. NORMAL NECK AND INTRACRANIAL CTA. 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 The attending who evaluated and managed this patient was Dr. Reynolds. This note was partially generated using [employer] voice recognition system, and there may be some incorrect words, spellings, and punctuation that were not noted in checking the note before saving SIGNATURE: SHAW Graham 06/10/20 1645 Attending Note: I have personally performed a tjjn-el-tomq assessment of the patient and have reviewed [...] or worse symptoms Hans Reynolds 06/10/20 1931 [facility] ANES POSTPROC EVALon 020 ANES POSTPROC EVAL HNO ID: [id number] Author: Leo Velasquez Service: ? Author Type: Anesthesiologist Type: Anesthesia Postprocedure Evaluation Filed: 06/08/2020 4:16 PM Note Text: POST ANESTHESIA EVALUATION NOTE : 1955 Procedure Summary Date: 06/08/20 Room / Location: [place] OR06 / [place] OR Anesthesia Start: 1024 [...] June 08, 2020 TIME: 4:16 PM CSN: [id number] [facility] ANES PRE-OPon 06-08-2020 ANES PRE-OP HNO ID: [id number] Author: Leo Velasquez Service: ? Author Type: [...] no. Vitals Value Taken Time BP 166/79 06/08/20821 Pulse Resp 20 06/08/20821 Temp 36.3 ?C (97.3 ?F) 06/08/20821 SpO2 98 % 06/08/20821 Facility-Administered Medications as [...] June 08, 2020 TIME: 9:21 AM CSN: [id number] [facility] BRIEF OP NOTon 06-08-2020 BRIEF OP NOT HNO ID: [id number] Author: Jose Haro Service: General Surgery Author Type: Physician Type: Brief Op Note Filed: 06/08/2020 11:16 AM Note Text: BRIEF OPERATIVE NOTATION FOR SURGICAL PROCEDURE. Bo Jacob 1955 [id number] female LOG ID: [id number] Surgery/Procedure Date: 06/08/2020 Incision/Procedure Start Time: 10:33 AM Incision Close/Procedure End Time: 11:03 AM Surgeon(s)/Proceduralist(s) and Sliver Lap Tender(s): Surgeon(s) and Role: * Jose Haro - Primary REFERRING PHYSICIAN: Outpatient DEPT: [place] PROVIDER: Flor POS: [id number] ANESTHESIA: Monitored Anesthesia Care ASA CLASS: 3 - Severe DIAGNOSIS: right breast cancer PROCEDURE: left Subclavian portacath - 37707-452 and Fluoroscopic for vascular access - 95678-342-45 IVF: 700 EBL: 10 Specimens: ADDITIONAL DIAGNOSES: FINDINGS: COMPLICATIONS: None PMHx - PAST MEDICAL HISTORY Diagnosis Date - Arthritis - Breast cancer (HCC) 04/07/2020 - Ectopic fetus tube removed - Hypertension - Irregular heart beat COMORBIDITIES - Current Cancer Therapy Post Op Occurrences - None Wound Classification - Clean Operative note dictated in the dictation system. - [id number] Jose Haro MD [facility] HISTORY PHYSICALon 0 HISTORY PHYSICAL HNO ID: [id number] Author: Jose Haro Service: General Surgery Author [...] ? Planned Procedure: left Subclavian portacath - 68873-902 and Fluoroscopic for vascular access - 39304-291-56 ? Patient Weight Last 1 Encounter Wt Readings: Date: Wt: 05/31/2020 81.2 kg (179 lb) ? Antibiotic: Ancef 2gm IVPB irrigation laborer to OR ? Planned Anesthetic: MAC with local ? I ??? plan to access the port at the time of surgery. ? The patient was offered a surgery/procedure at a [place]. The surgeon/proceduralist and patient have discussed in [...] encounter diagnosis) ? __ Jose Haro MD Normal [facility] OPERATIVE NOon 06-08-2020 OPERATIVE NO HNO ID: [id number] Author: Jose Haro Service: General Surgery Author Type: Physician Type: Operative Report Filed: 06/08/2020 1:08 PM Note Text: [facility] - Operative Report MADELINE JACOBSE Rodriguez : 1955 AGE: 64. SEX: F PATIENT TYPE: A HOSP SVC: GEN LOCATION: [facility] ATTENDING PHYSICIAN: Jose Haro M.D. CSN NUMBER: [id number] DATE OF SURGERY/PROCEDURE: 06/08/2020 INCISION/PROCEDURE START TIME: 10:32 a.m. INCISION CLOSE/PROCEDURE END TIME: 11:03 a.m. PREOPERATIVE DIAGNOSIS: Right breast cancer, need for IV access. POSTOPERATIVE DIAGNOSIS: Left subclavian Port-A-Cath placement with fluoroscopy. SURGEON: Jose Haro M.D. PSYCHIATRIC NP: SURGERY/PROCEDURE: Left subclavian portacath placement with fluoroscopy ANESTHESIA: Local MAC. LOG ID: [id number]. ANESTHESIOLOGIST: Leo Velasquez. ASA: 3. INTRAVENOUS FLUIDS: 700 mL. ESTIMATED BLOOD LOSS: 10 mL. URINE OUTPUT: No catheter. FINDINGS: As described above. SPECIMENS: None. DRAINS: None. COMPLICATIONS: None. DISPOSITION: Patient was taken to PACU in stable condition. IMPLANTS: PowerPort reference #[id number], lot #[id number], expires 06/18/2021. DESCRIPTION OF PROCEDURE: Patient's left [...] for postprocedure chest x-ray. Jose Haro M.D. RG:[id number] /[id number] [facility] XR CHEST 1V FRONTAL PORTon 1 [...] silhouette. IMPRESSION: Status post LEFT Mediport placement Memory Care Program Resident: RODO Transcribe Date/Time: Jun 08 2020 12:06P Dictated by : JESSIE LOUIS MD This examination was interpreted and the report reviewed and electronically signed by: JESSIE LOUIS MD on Jun 08 2020 12:07PM EST [id number] [facility] HOSPon 05-31-2020 HOSP Patient:Emmy Jacob MRN: [...] for the following basenames: K,HCT Progress Notes ([facility]): Estuardo Chaudhari 05/31/2020 3:48 PM Signed 06-08-2020 Port placement Progress Notes ([facility]): Raymond Byrne LPN 05/31/2020 3:04 PM Signed [...] 05/31/2020 6:40 PM Signed HISTORY AND PHYSICAL Bose Jennifer Jacob 1955 REFERRING PHYSICIAN: CHIEF COMPLAINT: HPI: [...] procedure. Planned Procedure: left Subclavian portacath - 64945-588 and Fluoroscopic for vascular access - 09322-206-19 Patient Weight Last 1 Encounter Wt Readings: Date: Wt: 05/31/2020 81.2 kg (179 lb) Antibiotic: Ancef 2gm IVPB irrigation laborer to OR Planned Anesthetic: MAC with local I ??? plan to access the port at the time of surgery. The patient was offered a surgery/procedure at a [facility] facility. The surgeon/proceduralist and patient have [...] (primary encounter diagnosis) __ Jose Haro MD [facility] ALLIED HEALTHon 04-22-2020 [facility] HNO ID: [id number] Author: GAVI Avila (Ct) Service: Nuclear Medicine Author Type: Clinical Tubing Drier Type: Allied Health Filed: 04/22/2020 11:06 AM [...] 22, 2020 TIME: 11:05 AM PAGER/CONTACT #: [facility] ANES POSTPROC EVALon 020 ANES POSTPROC EVAL HNO ID: [id number] Author: Raymond Rocha Service: ? Author Type: Anesthesiologist Type: Anesthesia Postprocedure Evaluation Filed: 04/22/2020 4:20 PM Note Text: POST ANESTHESIA EVALUATION NOTE : 1955 Procedure Summary Date: 04/22/20 Room / Location: [place] [address] / [place] Anesthesia Start: 1242 Anesthesia Stop: 1418 Procedures: LUMPECTOMY BREAST (Right Breast) BIOPSY NODE [...] April 22, 2020 TIME: 4:20 PM CSN: [id number] [facility] ANES PRE-OPon 04-22-2020 ANES PRE-OP HNO ID: [id number] Author: Raymond Rocha Service: ? Author Type: [...] Pulse 80 04/22/20 0801 Resp 16 04/22/20 08 Temp 36.2 ?C (97.2 ?F) 04/22/20 08 SpO2 99 % 04/22/20 08 Facility-Administered Medications as of 04/22/2020 Medication Dose [...] April 22, 2020 TIME: 12:18 PM CSN: [id number] [facility] BRIEF OP NOTon 04-22-2020 BRIEF OP NOT HNO ID: [id number] Author: Jose Haro Service: General Surgery Author Type: Physician Type: Brief Op Note Filed: 04/22/2020 2:31 PM Note Text: BRIEF OPERATIVE NOTATION FOR SURGICAL PROCEDURE. Bo Jacob 1955 [id number] female LOG ID: [id number] Surgery/Procedure Date: 04/22/2020 Incision/Procedure Start Time: 1:13 PM Incision Close/Procedure End Time: 2:09 PM Surgeon(s)/Proceduralist(s) and Sliver Lap Tender(s): Surgeon(s) and Role: * Jose Haro - Primary Registered Nurse Insole Taper: Marisabel (Rn) BERNABE Cantrell REFERRING PHYSICIAN: Outpatient DEPT: WSarah PROVIDER: Flor POS: [id number] ANESTHESIA: General ASA CLASS: 3 - Severe DIAGNOSIS: right upper inner breast cancer PROCEDURE: right preoperative stereotactic guided needle placement - LUMPECTOMY, WITH SENTINEL LYMPH NODE BIOPSY, Radiotracter identification - [id number], [id number], [id number]?, [id number], [id number], [id number] IVF: 800 EBL: 25 Specimens: right axillary SLNBx, Right lumpectomy ADDITIONAL DIAGNOSES: FINDINGS: good radiographic margins COMPLICATIONS: None PMHx - PAST MEDICAL HISTORY Diagnosis Date - Arthritis - Breast cancer (HCC) 04/07/2020 - Ectopic fetus tube removed - Irregular heart beat COMORBIDITIES - None Post Op Occurrences - None Wound Classification - Clean Operative note dictated in the dictation system. 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 ? RESULTS Estrogen Receptor (ER) [...] patient was offered a surgery/procedure at a [facility] facility. The surgeon/proceduralist and patient have [...] right preoperative stereotactic guided needle placement - 69533 LUMPECTOMY, WITH SENTINEL LYMPH NODE BIOPSY, Radiotracter identification - [id number], [id number], [id number]-?, [id number], [id number], [id number] ? Anticipated Anesthetic: General ? Patient weight: Blood pressure 136/85, pulse 97, height 160 cm (5' 3), weight 81.2 kg (179 lb). BMI: Body mass index is 31.71 kg/m?. ? Planned antibiotic: Ancef 2gm IVPB irrigation laborer to OR ? SCDs needed - Yes ? Sliver Lap Tender Needed - Yes ? Diagnoses: (C50.411) Malignant neoplasm of upper-outer quadrant of right female breast, unspecified estrogen receptor status (HCC) (primary encounter diagnosis) ? ? Return to Clinic: The patient is instructed to follow-up with me 1 week post operatively. ? __ Jose Haro MD [facility] DIAGNOSTIC RTon 04-22-20 20 [facility] DIAGNOSTIC RT * * *Final Report* * * DATE OF EXAM: Apr 22 2020 11:26AM CHRIS 0626 - [facility] DIAGNOSTIC RT / PROCEDURE REASON: s/p needle localization * * * * Physician Interpretation * * * * #[id number] - [facility] DIAGNOSTIC RT #[id number] - [facility] SURGICAL BREAST SPECIMEN RT UNILATERAL RIGHT DIGITAL DIAGNOSTIC MAMMOGRAM WITH CAD: 04/22/2020 HISTORY: S/P Needle Localization S/P Lumpectomy. RESULT: TECHNIQUE: The study was acquired using full field digital technology and interpreted from soft copy. Current study was also evaluated with a Computer Aided Detection (CAD). Comparison is made to exams dated: 04/05/2020 mammogram, 04/04/2020 mammogram - [facility], 10/24/2017 mammogram, and 10/11/2017 mammogram. There [...] exams dated: 04/05/2020 mammogram, 04/04/2020 mammogram - [facility], 10/24/2017 mammogram, and 10/11/2017 mammogram. RIGHT BREAST SPECIMEN RADIOGRAPH: Indication: Biopsy-proven carcinoma Result: A specimen submitted for radiography includes the mass noted on the preoperative imaging. IMPRESSION: SPECIMEN IMPRESSION: BIRADS 6 - Known malignancy. Completed excisional breast biopsy. Recommendation: Correlation with pathology result from biopsy specimen. Cindy villalobos/charlene:04/22/2020 16:35:05 Ditch Repairer(s): Shelley Bravo RT(R)(M), [facility] Mammogram BI-RADS: Post-procedure mammogram for marker [...] Health, Family Medicine, and Medical/Surgical Oncology, the [facility] has carefully reviewed the data and [...] their providers when to stop screening mammograms. Memory Care Program Resident: Charlene Transcribe Date/Time: Apr 22 2020 11:21A Dictated by : CINDY LONDONO MD This examination was interpreted and the report reviewed and electronically signed by: CINDY LONDONO MD on Apr 22 2020 4:35PM EST [id number] Normal [facility] SURGICAL BREAST SPECIMEN RTon 04-22-2020 [facility] SURGICAL BREAST SPECIMEN RT * * *Final Report* * * DATE OF EXAM: Apr 22 2020 1:56PM CHRIS 0639 - [facility] SURGICAL BREAST SPECIMEN RT / PROCEDURE REASON: s/p lumpectomy * * * * Physician Interpretation * * * * #[id number] - [facility] DIAGNOSTIC RT #[id number] - [facility] SURGICAL BREAST SPECIMEN RT UNILATERAL RIGHT DIGITAL DIAGNOSTIC MAMMOGRAM WITH CAD: 04/22/2020 HISTORY: S/P Needle Localization S/P Lumpectomy. RESULT: TECHNIQUE: The study was acquired using full field digital technology and interpreted from soft copy. Current study was also evaluated with a Computer Aided Detection (CAD). Comparison is made to exams dated: 04/05/2020 mammogram, 04/04/2020 mammogram - [facility], 10/24/2017 mammogram, and 10/11/2017 mammogram. There [...] exams dated: 04/05/2020 mammogram, 04/04/2020 mammogram - [facility], 10/24/2017 mammogram, and 10/11/2017 mammogram. RIGHT BREAST SPECIMEN RADIOGRAPH: Indication: Biopsy-proven carcinoma Result: A specimen submitted for radiography includes the mass noted on the preoperative imaging. IMPRESSION: SPECIMEN IMPRESSION: BIRADS 6 - Known malignancy. Completed excisional breast biopsy. Recommendation: Correlation with pathology result from biopsy specimen. Cindy villalobos/charlene:04/22/2020 16:35:05 Ditch Repairer(s): Shelley Bravo RT(R)(M), [facility] Mammogram BI-RADS: Post-procedure mammogram for marker [...] Health, Family Medicine, and Medical/Surgical Oncology, the [facility] has carefully reviewed the data and [...] their providers when to stop screening mammograms. Memory Care Program Resident: Charlene Transcribe Date/Time: Apr 22 2020 11:21A Dictated by : CINDY LONDONO MD This examination was interpreted and the report reviewed and electronically signed by: CINDY LONDONO MD on Apr 22 2020 4:35PM EST [id number] Normal [facility] US LOC BREAST RTon 04-22 [facility] US LOC BREAST RT * * *Final Report* * * DATE OF EXAM: Apr 22 2020 11:31AM U 0600 - [facility] US LOC BREAST RT / PROCEDURE REASON: RT BREAST LESION * * * * Physician Interpretation * * * * TECHNIQUE: [facility] US LOC BREAST RT COMPARISON: [...] of a mass in the right breast. Memory Care Program Resident: RODO Transcribe Date/Time: Apr 22 2020 4:35P Dictated by : CINDY LONDONO MD This examination was interpreted and the report reviewed and electronically signed by: CINDY LONDONO MD on Apr 22 2020 4:42PM EST [id number] [facility] NM LYMPH NODE IMAGINGon Lymphocytes (Bld) [...] SENTINEL LYMPH NODES IDENTIFIED, RIGHT AXILLARY REGION. [facility] Date/Time: Apr 22 2020 11:19A Dictated by : PADMA JIMENEZ MD This examination was interpreted and the report reviewed and electronically signed by: PADMA JIMENEZ MD on Apr 22 2020 11:25AM EST [id number] [facility] OPERATIVE NOon 04-22-2020 OPERATIVE NO HNO ID: [id number] Author: Jose Haro Service: General Surgery Author Type: Physician Type: Operative Report Filed: 04/25/2020 8:36 AM Note Text: [facility] - Operative Report BO JACOB : 1955 AGE: 64. SEX: F PATIENT TYPE: A HOSP SVC: GENS LOCATION: [facility] ATTENDING PHYSICIAN: Jose Haro M.D. CSN NUMBER: [id number] DATE OF SURGERY/PROCEDURE: 04/22/2020 INCISION/PROCEDURE START TIME: 1:13 p.m. INCISION CLOSE/PROCEDURE END TIME: 2:09 p.m. PREOPERATIVE DIAGNOSIS: Right upper outer quadrant breast cancer. POSTOPERATIVE DIAGNOSIS: Successful sentinel lymph node biopsy and good radiographic margins at right upper inner quadrant lumpectomy site. SURGEON: Jose Haro M.D. PSYCHIATRIC NP: [facility]. SURGERY/PROCEDURE: Right preoperative stereotactic-guided needle placement, lumpectomy with sentinel lymph node biopsy using radiotracer and Lymphazurin Blue for node identification. ANESTHESIA: LMA. LOG ID: [id number]. ANESTHESIOLOGIST: Dr. Raymond Rocha. ASA: 3. INTRAVENOUS FLUIDS: 800 mL. ESTIMATED BLOOD LOSS: 25. URINE OUTPUT: No catheter. FINDINGS: As described above. SPECIMEN: [place] lymph nodes x2 nodes sent and lumpectomy [...] in stable condition. Marisabel Calvo was my DIRECTOR MERIT SYSTEM. She assisted in retraction, visualization, identification of structures and to perform subcuticular closure. There were no surgeons or qualified residents available. Jose Haro M.D. RG:[id number] /[id number] Normal [facility] OPERATIVE NO HNO ID: [id number] Author: Jose Haro Service: General Surgery Author Type: Physician Type: Operative Report Filed: 04/26/2020 10:37 AM Note Text: [facility] - Operative Report BO JACOB : 1955 AGE: 64. SEX: F PATIENT TYPE: A HOSP SVC: GENS LOCATION: [facility] ATTENDING PHYSICIAN: Jose Haro M.D. CSN NUMBER: [id number] DATE OF SURGERY/PROCEDURE: 04/22/2020 INCISION/PROCEDURE START TIME: 1:13 p.m. INCISION CLOSE/PROCEDURE END TIME: 2:09 p.m. PREOPERATIVE DIAGNOSIS: Right upper outer quadrant breast cancer. POSTOPERATIVE DIAGNOSIS: Successful sentinel lymph node biopsy and good radiographic margins at right upper inner quadrant lumpectomy site. SURGEON: Jose Haro M.D. PSYCHIATRIC NP: Marisabel Cantrell RN SURGERY/PROCEDURE: Right preoperative stereotactic-guided needle placement, lumpectomy with sentinel lymph node biopsy using radiotracer and Lymphazurin Blue for node identification. ANESTHESIA: LMA. LOG ID: [id number]. ANESTHESIOLOGIST: Dr. Raymond Rocha. ASA: 3. INTRAVENOUS FLUIDS: 800 mL. ESTIMATED BLOOD LOSS: 25. URINE OUTPUT: No catheter. FINDINGS: As described above. SPECIMEN: [place] lymph nodes x2 nodes sent and lumpectomy [...] in stable condition. Marisabel Calvo was my DIRECTOR MERIT SYSTEM. She assisted in retraction, visualization, identification of structures and to perform subcuticular closure. There were no surgeons or qualified residents available. Jose Haro M.D. RG:[id number] revised 04/26/2020 [facility] /[id number] [facility] PT EDon 04-22-2020 PT ED HNO ID: [id number] Author: Jocelyn (Rn) BERNABE Anne Service: ? Author Type: Registered Nurse Type: [...] Signed By: Jocelyn Anne RN In Department: [facility] SURGERY [facility] PT ED HNO ID: [id number] Author: Didier HendricksonRnNoris Campa RN Service: Nursing [...] Signed By: Didier Campa RN In Department: [facility] SURGERY [facility] PT ED HNO ID: [id number] Author: Randa HendricksonRn) BERNABE Rodríguez Service: Nursing Author Type: Registered Nurse Type: [...] Signed By: Randa Rodríguez RN In Department: [facility] SURGERY [facility] SURGICAL PATHOLOGYon 020 SURGICAL PATHOLOGY Specimen originated from [facility] Specimen #: [id number] Submitting Physician: Jose Haro M.D. FINAL DIAGNOSIS [...] pT1c Regional Lymph Nodes (pN): Modifier: (sn): [place] node(s) evaluated Category (pN): pN0 Distant metastasis: Distant Metastasis (pM) Not applicable/Not confirmed pathologically in this case Estrogen & progesterone receptors: Previously performed and reported as follows: Estrogen receptor: Positive (>95%, strong) Progesterone receptor: Positive (90%, strong) Specimen number #: [id number] (HER2) ERBB2 Status: Previously performed and reported as follows: HER2:Positive (3+) Specimen number #: [id number] [employer] Operator Tumor Block: Specify: B9 -- Farzana Mejia [...] margins. No other gross lesions are identified. [employer] Collection System Operator sections are submitted as follows: B1 slice [...] 04/22/20. NIALL/simone 04/26/2020 Gross examination performed at [facility], [address] [place] [address] Date of Report: 05/02/2020 Date of Procedure: 04/22/2020 Date of Receipt: 04/22/2020 Submitted by: Jose Haro M.D. Location: [facility] Diagnostic interpretation performed at [facility], [address] [place] [address]. IA Number: [id number] [facility] HISTORY PHYSICALon 0 HISTORY PHYSICAL HNO ID: [id number] Author: Lorna Segura) Miryam Service: ? Author Type: Nurse Practitioner Type: [...] fevers. Neuro: No history of TIA's, stroke, PATTERNMAKER tumor, impaired sensorium, hemiplegia, paraplegia or quadraplegia. No neurological symptoms or problems. Respiratory:(+) Former cigarette smoker No history of current cough or dyspnea, or pneumonia in the past 6 weeks. No history of respiratory/pulmonary symptoms or problems. Cardiovascular: (+) Irregular HB- hx of PVC's, asymptomatic (+) HTN-controlled on Rx. No history of HLD, angina, CHF, MO, cardiac surgery or stent. Denies rest pain, [...] > 1 time per night or hematuria HASH SLINGER: Negative for abnormal vaginal bleeding, abnormal vaginal [...] SIGNATURE: Lorna Witt APRN.CNP PATIENT NAME: Bo Jacob DATE: April 20, 2020 TIME: 8:48 AM PAGER/CONTACT #: [facility] NURSING PROGon 04-20-2020 NURSING PROG HNO ID: [id number] Author: Consuelo Mullins (Rn) BERNABE Rios Service: [...] Rios RN April 20, 2020 11:[address] 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 RESULTS Estrogen Receptor (ER) ? [...] patient was offered a surgery/procedure at a [place]. The surgeon/proceduralist and patient have discussed in [...] right preoperative stereotactic guided needle placement - 67202 LUMPECTOMY, WITH SENTINEL LYMPH NODE BIOPSY, Radiotracter identification - [id number], [id number], 81911-?, 89981, [id number], [id number] Anticipated Anesthetic: General Patient weight: Blood pressure 136/85, pulse 97, height 160 cm (5' 3), weight 81.2 kg (179 lb). BMI: Body mass index is 31.71 kg/m?. Planned antibiotic: Ancef 2gm IVPB irrigation laborer to OR SCDs needed - Yes Sliver Lap Tender Needed - Yes Diagnoses: (C50.411) Malignant neoplasm of upper-outer quadrant of right female breast, unspecified estrogen receptor status (HCC) (primary encounter diagnosis) Return to Clinic: The patient is instructed to follow-up with me 1 week post operatively. __ Jose Haro MD Previous Version Progress Notes ([facility]): Barbara Shultz RN 04/07/2020 3:10 PM Signed Call from Breast Center Coordinator Ursula Harmon at [facility] to request appointment with Dr Cummings for breast surgery consult. Dr Cummings is out of office from 04/08/20 to 04/27/20. May need to offer anther surgeon due to diagnosis of breast cancer. Message routed to [facility] to assist with calling patient to schedule appointment for Breast Surgery Consult Barbara Shultz RN 04/07/2020 4:19 PM Signed Phyllis Madden; [place] [facility] 6th Floor; [facility] Surg Mechanic Chief's Pool; Catrina Reeder 3 minutes ago (4:15 PM) Patient is scheduled for 04/11/[address] Haro Encounter closed. Normal [facility] DIAGNOSTIC RTon 04-05-20 20 [facility] DIAGNOSTIC RT * * *Final Report* * * * * * SEE BOTTOM OF REPORT FOR ADDENDED TEXT * * * DATE OF EXAM: Apr 05 2020 9:17AM CHRIS 0626 - [facility] DIAGNOSTIC RT / PROCEDURE REASON: RIGHT BREAST BIOPSY * * * * Physician Interpretation * * * * FINAL REPORT #[id number] - [facility] DIAGNOSTIC RT #[id number] - [facility] US BIOPSY BREAST RT ULTRASOUND [...] dated: 04/04/2020 mammogram and 04/04/2020 [facility]. An ultrasound guided biopsy using real-time [...] location, a core was obtained using a Flixster biopsy device. The patient received additional local [...] dated: 04/04/2020 mammogram and 04/04/2020 [facility]. There are scattered fibroglandular elements in [...] 15:00:42 copy to: GUY ARAYA, ph: [phone] Ditch Repairer(s): Lori Bueno RT(R)(M), [facility]; Caridad Ramey, [facility] Mammogram BI-RADS: Post-procedure mammogram for marker [...] Health, Family Medicine, and Medical/Surgical Oncology, the [facility] has carefully reviewed the data and [...] their providers when to stop screening mammograms. Memory Care Program Resident: Charlene Transcribe Date/Time: Apr 05 2020 8:39A Dictated by : GUY ARAYA MD This examination was interpreted and the report reviewed and electronically signed by: GUY ARAYA MD on Apr 05 2020 9:29AM EST This document has been addended by: GUY ARAYA MD on Apr 07 2020 3:00PM EST [id number] Normal [facility] US BIOPSY BREAST RTon [facility] US BIOPSY BREAST RT * * *Final Report* * * * * * SEE BOTTOM OF REPORT FOR ADDENDED TEXT * * * DATE OF EXAM: Apr 05 2020 9:09AM TONI 0598 - [facility] US BIOPSY BREAST RT / PROCEDURE REASON: R92.8-Abnormal finding on radiological examination of breast * * * * Physician Interpretation * * * * FINAL REPORT #[id number] - [facility] DIAGNOSTIC RT #[id number] - [facility] US BIOPSY BREAST RT ULTRASOUND [...] dated: 04/04/2020 mammogram and 04/04/2020 ultrasound - [facility]. An ultrasound guided biopsy using real-time [...] dated: 04/04/2020 mammogram and 04/04/2020 ultrasound - [facility]. There are scattered fibroglandular elements in [...] 15:00:42 copy to: GUY ARAYA, ph: [phone] Ditch Repairer(s): Lori Bueno RT(R)(M), [facility]; Caridad Ramey, [facility] Mammogram BI-RADS: Post-procedure mammogram for marker [...] Health, Family Medicine, and Medical/Surgical Oncology, the [facility] has carefully reviewed the data and [...] their providers when to stop screening mammograms. Memory Care Program Resident: Charlene Transcribe Date/Time: Apr 05 2020 8:39A Dictated by : GUY ARAYA MD This examination was interpreted and the report reviewed and electronically signed by: GUY ARAYA MD on Apr 05 2020 9:29AM EST This document has been addended by: GUY ARAYA MD on Apr 07 2020 3:00PM EST [id number] Normal [facility] SURGICAL PATHOLOGYon 020 SURGICAL PATHOLOGY ADDITIONAL PROCEDURES PRESENT Specimen originated from 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 MKK/td 04/06/2020 COMMENT The invasive [...] in-situ hybridization tests have been determined by [facility]'s Paulo Tram [facility] Pathology and Laboratory Medicine [place] ([facility]) in a manner consistent with CLIA requirements. One or more of these tests have not been cleared or approved by the FDA. [facility] is regulated under CLIA as qualified to [...] Receptor: Food and Drug Administration (FDA) cleared: [employer], [place], [place] Primary Antibody: SP1 Progesterone Receptor: FDA cleared: [employer], [place], [place] Primary Antibody: IE2 HER2 (ERBB2) by IHC: FDA cleared: [employer], [place], [place] Primary Antibody: 4B5 The hormone receptor tests were performed and reported according to Estrogen and Progesterone Receptor Testing in Breast Cancer: [place] Society of Clinical Oncology/College of Cymraes PathologistsGuidelineUpdate . Arch Pathol Lab Med.2020May;144(5):545-563. doi: 10.5858/arpa.5656-8507-EI. Aenm4780Oqr 13. The hormone receptor assays have been internally validated on decalcified tissues. Estrogen and progesterone receptor results are valid if tissue was processed according to ASCO/CAP guidelines. Antibody and Detection System: [employer] Pathway anti-HER2 rabbit monoclonal antibody (clone 4B5), Vesta anti-estrogen receptor rabbit monoclonal antibody (clone SP1) and Vesta anti-progesterone receptor rabbit monoclonal antibody (clone IE2) detected with the [employer] iView Detection System (indirect biotin streptavidin detection); [employer], [place], [place]. Control slides: Cell line controls with [...] accordance with the guidelines approved by the [place] Society of Clinical Oncologists and the College of [place]ymraes Pathologists. Zafar BERMUDEZ et al. Arch Pathol [...] < 1 minute(s) Gross examination performed at [facility], [address] [place] [address] EJL 04/05/2020 3:18:49 PM Date of Report: 04/07/2020 Date of Procedure: 04/05/2020 Date of Receipt: 04/05/2020 Submitted by: GUY ARAYA MD Location: RAMAMR Diagnostic interpretation performed at [facility], [address] [place] [address]. CLIA Number: [id number] [facility] DIAGNOSTIC BILon 020 [facility] DIAGNOSTIC TRACEE * * *Final Report* * * DATE OF EXAM: Apr 04 2020 8:29AM CHRIS 0620 - [facility] DIAGNOSTIC TRACEE / PROCEDURE REASON: right breast mass * * * * Physician Interpretation * * * * #[id number] - [facility] DIAGNOSTIC TRACEE #[id number] - [facility] US BREAST LTD RT BILATERAL [...] Health, Family Medicine, and Medical/Surgical Oncology, the [facility] has carefully reviewed the data and [...] their providers when to stop screening mammograms. Ditch Repairer(s): RT Yunior(Jasbir)(M), [facility]; Caridad Ramey, [facility] OVERALL STUDY BIRADS: 5 Highly suggestive of malignancy - Appropriate action should be taken Memory Care Program Resident: Charlene Transcribe Date/Time: Apr 04 2020 8:17A Dictated by : ANDREIA GREENWOOD MD This examination was interpreted and the report reviewed and electronically signed by: ANDREIA GREENWOOD MD on Apr 04 2020 10:19AM EST [id number] Normal [facility] US BREAST LTD RTon 04-04 [facility] US BREAST LTD RT * * *Final Report* * * DATE OF EXAM: Apr 04 2020 9:39AM TONI 0594 - [facility] US BREAST LTD RT / PROCEDURE REASON: breast mass * * * * Physician Interpretation * * * * #[id number] - [facility] DIAGNOSTIC TRACEE #[id number] - [facility] US BREAST LTD RT BILATERAL [...] Health, Family Medicine, and Medical/Surgical Oncology, the [facility] has carefully reviewed the data and [...] their providers when to stop screening mammograms. Ditch Repairer(s): RT Yunior(R)(M), [facility]; Caridad Ramey, [facility] OVERALL STUDY BIRADS: 5 Highly suggestive of malignancy - Appropriate action should be taken Memory Care Program Resident: Charlene Transcribe Date/Time: Apr 04 2020 8:17A Dictated by : ANDREIA GREENWOOD MD This examination was interpreted and the report reviewed and electronically signed by: ANDREIA GREENWOOD MD on Apr 04 2020 10:19AM EST [id number] Normal [facility] PROGRESSon 04-04-2020 PROGRESS HNO ID: [id number] Author: GAVI Mojica (Ct) Service: Radiology Author Type: Clinical Tubing Drier Type: Progress Notes Filed: 04/04/2020 8:29 AM [...] GAVI Mojica April 04, 2020 8:29 AM [facility] PROGRESS HNO ID: [id number] Author: GAVI De León (Ct) Service: Radiology Author Type: Clinical Tubing Drier Type: Progress Notes Filed: 04/04/2020 9:42 AM [...] De León April 04, 2020 9:42 AM [facility] CNTHERAPYon 05-03-2018 CNTHERAPY OT/PT/Speech Visit (PTMDRG) -------BO JACOB ([id number]) 1955 [facility] Time Provider Department05/03/18 8:45 AM ROSSY WILSON (PT) PTMDRGEncounter Number: [id number] Time Provider Department [place]05/03/2018 8:45 AM [id number] WILSON (P*PTMDRG [facility] for Visit: Physical Therapy [503]Primary Visit Diagnosis:Dizziness [...] NegativeSmooth pursuit: (undershoots x 1 to right)Right [place] Comments: immediate brief minor R torsion with sx's ++ :retest no sx's, slight L beat tendencyLeft [place] Comments: negative allTREATMENT:Self-Fdc Management:1: vestibular anatomy and mechanism of operation, [...] 3-4 hours.Billing:[place]: Self Care / Home Management (36571): 1:1 time: 10 minutes (1 unit:8-22 mins)Canalith Repositioning (87957) 1 unit (untimed)Total time: 30 minutesSAMMI Luorevious Version ------ Normal [facility] PROGRESSon 05-03-2018 Protein mass conc HNO ID: [id number] thor: Rossy (Pt) ReuschService: (none)Author Type: Physical [...] NegativeSmooth pursuit: (undershoots x 1 to right)Right [place] Comments: immediate brief minor R torsion with sx's ++: retest no sx's, slight L beat tendencyLeft [place] Comments: negative allTREATMENT:Self-Fdc Management:1: vestibular anatomy and mechanism of operation, [...] patient in post repositioning procedures including upright 3-4hours.Billing:[place]: Self Care / Home Management (27824): 1:1 time: 10 minutes (1unit: 8-22 mins)Canalith Repositioning (13231) 1 unit (untimed)Total time: 30 minutesRossy Wilson PT [facility] CNTHERAPYon 04-24-2018 CNTHERAPY OT/PT/Speech Visit (PTMDRG) -------BO JACOB ([id number]) 1955 FDate Time Provider Department04/24/18 1:45 PM ROSSY WILOSN (PT) PTMDRGEncounter Number: [id number] Time Provider Department [place]04/24/2018 1:45 PM [id number] WILSON (P*[facility]MDRG [facility] PT Eval [687] Patient Education [91]Primary Visit Diagnosis:Dizziness [R42]Allergies As of Date: 04/24/2018(No Known Allergies)Date Reviewed: 03/20/2018Reviewed by: Sony (Rn) BERNABE Faulkner - Fully AssessedPrescriptions as of [...] with minor sx's and nystagmus and repeated PICKLE PUMPER and issued for home if sx'spersist. She [...] providedEducation Provided To: PatientEducation Mode/Type: Explanation/Discussion;Perf ormanceTREATMENT:Evaluation EvaluationSelf-Fdc Management:1: eval findings, POC, HEP and parameters, Home PICKLE PUMPER-writtent hand outs if sx'spersistSkilled Intervention: Skilled judgment [...] patient in postrepositioning procedures including upright 3-4 hours.Jelena:[place]: Evaluation - Moderate Complexity (84044)Self Care / Home Management (47256): 1:1 time: 8 minutes (1 unit: 8-22 mins)Canalith Repositioning (67940) 1 unit (untimed)Total time: 45 minutesRossy Wilson PT -Letter TextRehabilitation and Sports [address] [place] [address]Lzcoxsvruah Line: Fax Line: Fax Cover LetterDate: 04/25/2018 Time: 12:55 PMTo: Callie Damon MDFrom: Kristian Luo of pages (including this page): Comments: Please [...] immediately and then destroythese copies.Rehabilitation [facility] Sports [address] [place], [place] [address]Skjkbjaiwxi Line: Fax Line: Date: 04/25/2018 PLAN OF CARE CERTIFICATIONTo: Callie Damon MDFrom: Therapist: GOYO LuoE: Patient Certification/Recertificati on Patient name: Bo Jacob [facility] review of the attached rehabilitation plan of care and ORIGINALsignature are required in order to comply with Payor: [facility] MEDICAID /Plan: [facility] MEDICAID / Product Type: Medicaid / [...] with minor sx's and nystagmus and repeated PICKLE PUMPER and issuedfor home if sx's persist. She [...] the treatment plan for Bo Jacob, CCF# [id number] for theperiod of 04/25/2018 -- 06/23/18, established on 04/25/2018.Provider signature: ____ Date: Please return only this signature form to:ATTN:[facility] [address] [place] [address]Synj: [phone]: [phone] [facility] PROGRESSon 04-24-2018 Protein mass conc HNO ID: [id number] thor: Rossy (Pt) ReuschService: (none)Author Type: Physical TherapistType: Progress NotesFiled: 04/25/2018 12:57 PMNote Text:Episode Visit Count: 1Therapist That Will Oversee The Plan Of Care: rossy reuschStart of Care Date: 04/24/18Onset Date: 03/25/18Plan of [...] still with minor sx's and nystagmus andrepeated PICKLE PUMPER and issued for home if sx's persist. She may benefit fromskilled therapy services to resolve dizziness.Prognosis: ExcellentExcellent due to: current objective clinical presentation;good overallhealth status;good support system/ coping skillsGoals for Episode of Care: created on 04/24/18 through 06/24/18Patient will decrease DHI score to less than 5/100 (evaluation: ).Patient will have negative positional testing for BPPV.Patient [...] educationprovidedEducation Provided To: PatientEducation Mode/Type: Explanation/Discussion;Perf ormanceTREATMENT:Evaluation EvaluationSelf-Fdc Management:1: eval findings, POC, HEP and parameters, Home PICKLE PUMPER-writtent hand outs ifsx's persistSkilled Intervention: Skilled judgment [...] patient in post repositioning procedures including upright 3-4hours.Billing:[place]: Evaluation - Moderate Complexity (28272)Self Care / Home Management (77867): 1:1 time: 8 minutes (1 unit: 8-22mins)Canalith Repositioning (58124) 1 unit (untimed)Total time: [address] [facility] Basic Metabolic Panlon 03-21 Anion gap 3 molar conc 13 mmol/L Normal 9-18 [facility] Comment on above: Performed By: #### C BC, BMP, MG1 ####[facility] [address] [place], [place] 317160-721-5160 Calcium mass conc 8.6 mg/dL Normal 8.5-10.2 [facility] Comment on above: Performed By: #### C BC, BMP, MG1 ####[facility] [address] [place] [address] Chloride molar conc 106 mmol/L High 97-105 [facility] Comment on above: Performed By: #### C BC, BMP, MG1 ####[facility] [address] [place] [address] CO2 molar conc 24 mmol/L Normal 22-30 [facility] Comment on above: Performed By: #### C BC, BMP, MG1 ####[facility] [address] [place] [address] Creatinine mass conc 0.86 mg/dL Normal 0.58-0.96 [facility] Comment on above: Performed By: #### C BC, BMP, MG1 ####[facility] [address] [place] [address] eGFR- Amer. >[address] [facility] Comment on above: Performed By: #### C BC, BMP, MG1 ####[facility] [address] [place] [address] GFR/1.73 sq M predicted among non-blacks MDRD vol rate/area (S/P/Bld) mL/min/{1.73_m2} Normal [facility] Comment on above: Result Comment: eGFR [...] actual GFR. Performed By: #### C BC, BMP, MG1 ####[facility] [address] [place] [address] Glucose mass conc 94 mg/dL Normal 74-99 [facility] Comment on above: Result Comment: The [place] Diabetes Association (ADA) provides guidance for cutoff [...] Standards of Medical Care in Diabetes 2016, [place] Diabetes Association. Diabetes Care. 2016.39(Suppl 1). Performed By: #### C ROSAURA CHOPRA, MG1 ####[facility] [address] [place] [address] Potassium molar conc 3.9 mmol/L Normal 3.7-5.1 [facility] Comment on above: Performed By: #### C KEYSHA, BMP, MG1 ####[facility] [address] [place] [address] Sodium molar conc 143 mmol/L Normal 136-144 [facility] Comment on above: Performed By: #### C KEYSHA, BMP, MG1 ####[facility] [address] [place] [address] Urea nitrogen mass conc 15 mg/dL Normal 7-21 [facility] Comment on above: Performed By: #### C KEYSHA, BMP, MG1 ####[facility] [address] [place] [address] CASE MANAGEMon 03-21-2018 CASE MANAGEM HNO ID: [id number] thor: Elisa Rodriguez (Sw): Care ManagementAuthor Type: Social WorkerType: Care Mgt Progress NoteFiled: 03/21/2018 10:15 AMNote Text:CARE MANAGEMENT PROGRESS NOTESERVICE DATE: 03/21/2018SERVICE TIME: 10:10 AM LOS: 0 daysPt remains with no skilled needs. PCP tasked. Family to transport. CM tofollow and support.SIGNATURE: SHAWN Workman PATIENT NAME: Bo JacobDATE: March 21, 2018 : 10:10 AM PAGER/CONTACT #: [phone] [facility] CBCon 03-21-2018 Erythrocyte distribution width Auto Ratio (RBC) 13.5 % Normal 11.5-15.0 [facility] Comment on above: Performed By: #### ROSAURA OLMEDO MG1 ####[facility] [address] [place] [address] Hematocrit Auto Volume Fraction (Bld) 45.1 % Normal 36.0-46.0 [facility] Comment on above: Performed By: #### ROSAURA OLMEDO MG1 ####[facility] [address] [place] [address] Hemoglobin mass conc (Bld) 14.8 g/dL Normal 11.5-15.5 [facility] Comment on above: Performed By: #### ROSAURA OLMEDO MG1 ####[place] [address] MCH Auto Entitic mass (RBC) 30.3 pG Normal 26.0-34.0 [facility] Comment on above: Performed By: #### ROSAURA OLMEDO MG1 ####[place] [address] MCHC Auto mass conc (RBC) 32.8 g/dL Normal 30.5-36.0 [facility] Comment on above: Performed By: #### ROSAURA OLMEDO MG1 ####[place] [address] MCV Auto Entitic volume (RBC) 92.4 fL Normal 80.0-100.0 [facility] Comment on above: Performed By: #### ROSAURA OLMEDO MG1 ####[place] [address] Platelet mean volume Auto Entitic volume (Bld) 9.9 fL Normal 9.0-12.7 [facility] Comment on above: Performed By: #### ROSAURA OLMEDO MG1 ####[place] [address] Platelets Auto #/vol (Bld) 238 10*3/uL Normal 150-400 [facility] Comment on above: Performed By: #### ROSAURA OLMEDO, MG1 ####[facility] [address] [place] [address] RBC Auto #/vol (Bld) 4.88 10*6/uL Normal 3.90-5.20 [facility] Comment on above: Performed By: #### C KEYSHA, ROSAURA, MG1 ####[facility] Nwacbvtfxd3130 [address] WBC Auto #/vol (Bld) 6.68 10*3/uL Normal 3.70-11.00 [facility] Comment on above: Performed By: #### C KEYSHA, ROSAURA, MG1 ####[facility] Lowjmmbbut5954 [place] [phone] CNCOon 03-21-2018 CNCO Letter TextAugust 2017Emmyteresa JacobWkeocbx31696 [facility] [address]Vwop Ms. Jacob,The nurses and staff of [facility] hope this letter finds you feelingwell [...] free to contact me, Jenna Plaza RN ([phone]) or email me at,[email or web address] lly, you will receive a survey in the mail asking you to rate thecare you received while in the hospital. Please take the time to complete andsend back the survey, as it is essential to our continued success. Ipersonally review all the results and would appreciate your feedback.Thank you in advance for your participation and [facility].Sincerely,Nurse Senior Quality Engineer: Jenna Plaza RN ([phone])[facility] Unit: 2 [facility] CNDSon 03-21-2018 CNDS HNO ID: [id number] thor: Callie Davis: Hospital MedicineAuthor Type: PhysicianType: Discharge SummariesFiled: 03/21/2018 12:56 PMNote Text:DISCHARGE SUMMARYPATIENT NAME: Bo Mennell ADMISSION DATE: 03/19/2018MRN: [id number] DISCHARGE DATE: 03/21/2018ATTENDING PHYSICIAN: Callie Byers FOR HOSPITALIZATION: dizzinessDIAGNOSIS: Active Problems: Dizziness Hypertensive urgency Hematuria, undiagnosed causeResolved Problems: * No resolved hospital problems. *OPERATIONS DURING HOSPITALIZATION: NonePROCEDURES DURING HOSPITALIZATION: No procedures performedHOSPITAL COURSE:Active Problems: Dizziness Overview: -ct head and MRI brain were negative. -pt complaining of episodic vertigo. -[place] halpike maneuver performed at bedside was positive. [...] ED to Hosp-Admission (Current) from 03/19/2018 in [place] [facility] Follow-Up Appointment Specialty PCP Provider Name Loan Dias NP Address [address] [place] [id number] Additonal Instructions Patient should bring the following [...] 21, 2018 : 12:35 PM PAGER/CONTACT #: [phone] [facility] Magnesiumon 03-21-2018 Magnesium mass conc 2.1 mg/dL Normal 1.7-2.3 [facility] Comment on above: Performed By: #### C BC, BMP, MG1 ####[facility] [address] [place] [address] NURSING PROGon 03-21-2018 Protein mass conc HNO ID: [id number] thor: Sony (Rn) Kaushik, RNService: (none)Author Type: Registered NurseType: Nursing Progress NoteFiled: 03/21/2018 6:47 AMNote Text: Nursing Progress NotePatient Name: Bo JacobMRN: [id number] Location: [place] [address]____ Daily Note:1900: Patient is resting in bed talking with family.2100: Pt is resting in bed with family, sinus on tele.2300: pt observed asleep.0100: Pt observed asleep.0300: Pt observed asleep.0500: Pt observed sleeping, sinus on tele.This note was completed by: Sony Faulkner, BERNABE [facility] THERAPY NTon 03-21-2018 THERAPY NT HNO ID: [id number] thor: Rbuy (Pt) NaplesService: Physical TherapyAuthor Type: Physical TherapistType: Therapy (PT/OT/Speech/Resp)Filed: 03/21/2018 10:32 AMNote Text:Physical Therapy EvaluationSERVICE DATE: 03/21/2018SERVICE TIME: 854 to 951ROOM: [id number] Discharge Disposition: Outpatient Physical TherapyRecommended Discharge Disposition [...] INTERVENTIONS:Therapy Diagnosis: Reduced mobility-otherInterventions Provided: Evaluation;Therapeutic Activity (00100);CanalithRepositioni ng (75498)$ Evaluation-Low (71726) Billed Units: 1 unitTherapeutic Activity (54358) Treatment Minutes: 232 unitsSkilled Intervention(s): Instructed patient [...] POC and anticipated OP progression andrationaleCanalith Repositioning (42892)$ Canalith Repositioning (54685) Billed Units: 1 unitSkilled Intervention(s): Professional judgment was used to determinespecific treatment interventions based on assessment of symptoms. Verbaland tactile cues provided to patient to assist in moving between eachposition of maneuver in correct sequence.Total Timed Code Treatment Minutes: 23Total Treatment Time (minutes): 55FUNCTIONAL G CODE:PT 6 Clicks Score: 24 (03/21/18 0855)Mobility: Walking and Moving Around Current Status (G8978): CH ()Mobility: Walking and Moving Around Goal Status [...] details for this therapy evaluation/treatment.SIGNAT URE: Ruby Leavitt, JAX PATIENT NAME: Bo JacobDATE: March 21, 2018 : 10:[address] [facility] Urinalysison 03-21-2018 Bilirubin, Urine Negative Normal Negative [facility] Comment on above: Performed By: #### U A, UAMIC ####[facility] [address] [place] [address] Clarity Clear Normal Clear [facility] Comment on above: Performed By: #### U A, UAMIC ####[facility] [address] [place] [address] Yellow [facility] Comment on above: Performed By: #### U A, UAMIC ####[facility] [address] [place] [address] Glucose Ql (U) Negative Normal Negative [facility] Comment on above: Performed By: #### U A, UAMIC ####[facility] [address] [place] [address] Hemoglobin/Blood,Ur Trace Critically abnormal Negative [facility] Comment on above: Performed By: #### U A, UAMIC ####[facility] Dgbwlx[address] [place] [address] Ketones Ql (U) Negative Normal Negative [facility] Comment on above: Performed By: #### U A, UAMIC ####[facility] [address] [place] [address] Leukest Small Critically abnormal Negative [facility] Comment on above: Performed By: #### U A, UAMIC ####[facility] [address] [place] [address] Nitrites Negative Normal [facility] Comment on above: Performed By: #### U A, UAMIC ####[facility] [address] [place] [address] pH 7.0 Normal 5.0-8.0 [facility] Comment on above: Performed By: #### U A, UAMIC ####[facility] [address]qjfivp6475 [place] [address] Protein, Urine Negative Normal Negative [facility] Comment on above: Performed By: #### U A, UAMIC ####[facility] [address] [place] [address] Specific Sarita, Ur <=1.005 Normal 1.001-1.029 [facility] Comment on above: Performed By: #### U A UAMIC ####[facility] [address] [place] [address] Urobilinogen 0.2 Normal 0.2-1.0 [facility] Comment on above: Performed By: #### U A UAMIC ####[facility] [address] [place] [address] Urine Microscopic (FOR LAB U SE ONLY)on 03-21-2018 Bacteria Few Critically abnormal 0 [facility] Comment on above: Performed By: #### U A UAMIC ####[facility] [address] [place] [address] Cast SEE COMMENT Normal 0 [facility] Comment on above: Result Comment: 0 Performed By: #### U A UAMIC ####[facility] D[address] [place] [address] Epithelial Cells SEE COMMENT Normal [facility] Comment on above: Result Comment: 0-5S quamous Epithelial Cells Performed By: #### U A, UAMIC ####[facility] [address] [place] [address] INR Coag RelTime (Bld) 3-5 Criticall y abnormal 0-3 [facility] Comment on above: Performed By: #### U A, UAMIC ####[facility] [address] [place] [address] WBC 5-10 Critically abnormal 0-5 [facility] Comment on above: Performed By: #### U A, UAMIC ####[facility] [address] [place] [address] Basic Metabolic Panlon 03-20 Anion gap 3 molar conc 12 mmol/L Normal 9-18 [facility] Comment on above: Performed By: #### C BC, BMP, MG1 ####[facility] Frrov[address] [place], [place] [address] Calcium mass conc 9.0 mg/dL Normal 8.5-10.2 [facility] Comment on above: Performed By: #### C BC, BMP, MG1 ####[facility] [address]qr[address]xm7156 [place] [address] Chloride molar conc 106 mmol/L High 97-105 [facility] Comment on above: Performed By: #### C BC, BMP, MG1 ####[facility] Qr[address]aqz2965 [place] [address] CO2 molar conc 26 mmol/L Normal 22-30 [facility] Comment on above: Performed By: #### C BC, BMP, MG1 ####[facility] [address]xeyyxufp3250 [place] [address] Creatinine mass conc 0.87 mg/dL Normal 0.58-0.96 [facility] Comment on above: Performed By: #### C BC, BMP, MG1 ####[facility] Xhfzqeqopl8141 [place] [address] eGFR- Amer. >[address] [facility] Comment on above: Performed By: #### C BC, BMP, MG1 ####[facility] Y[address]k9647 [place] [address] GFR/1.73 sq M predicted among non-blacks MDRD vol rate/area (S/P/Bld) mL/min/{1.73_m2} Normal [facility] Comment on above: Result Comment: eGFR [...] actual GFR. Performed By: #### C BC, BMP, MG1 ####[facility] Vueuawobdm2173 [place] [address] Glucose mass conc 84 mg/dL Normal 74-99 [facility] Comment on above: Result Comment: The [place] Diabetes Association (ADA) provides guidance for cutoff [...] Standards of Medical Care in Diabetes 2016, [place] [employer]. Diabetes Care. 2016.39(Suppl 1). Performed By: #### C ROSAURA CHOPRA MG1 ####[facility] [address] [place] [address] Potassium molar conc 3.9 mmol/L Normal 3.7-5.1 [facility] Comment on above: Performed By: #### C ROSAURA CHOPRA, MG1 ####[facility] [address] [place] [address] Sodium molar conc 144 mmol/L Normal 136-144 [facility] Comment on above: Performed By: #### C ROSAURA CHOPRA, MG1 ####[facility] [address] [place] [address] Urea nitrogen mass conc 12 mg/dL Normal 7-21 [facility] Comment on above: Performed By: #### ROSAURA OLMEDO, MG1 ####[facility] [address] [place] [address] CBCon 03-20-2018 Erythrocyte distribution width Auto Ratio (RBC) 13.5 % Normal 11.5-15.0 [facility] Comment on above: Performed By: #### C ROSAURA CHOPRA, MG1 ####[facility] [address]pvdcoppz[address] [place] [address] Hematocrit Auto Volume Fraction (Bld) 44.6 % Normal 36.0-46.0 [facility] Comment on above: Performed By: #### C ROSAURA CHOPRA, MG1 ####[facility] [address]zfss0669 [place] [address] Hemoglobin mass conc (Bld) 14.8 g/dL Normal 11.5-15.5 [facility] Comment on above: Performed By: #### C BC, BMP, MG1 ####[facility] [address]qcc2564 [place] [phone] MCH Auto Entitic mass (RBC) 30.9 pG Normal 26.0-34.0 [facility] Comment on above: Performed By: #### Jennifer BC, BMP, MG1 ####[facility] [address]ird77[address] [place] [phone] MCHC Auto mass conc (RBC) 33.2 g/dL Normal 30.5-36.0 [facility] Comment on above: Performed By: #### C BC, BMP, MG1 ####[facility] Eaimfiscai4[address] [place] [phone] MCV Auto Entitic volume (RBC) 93.1 fL Normal 80.0-100.0 [facility] Comment on above: Performed By: #### Jennifer BC, BMP, MG1 ####[facility] Egfloyjgmr8886 [address] Platelet mean volume Auto Entitic volume (Bld) 10.1 fL Normal 9.0-12.7 [facility] Comment on above: Performed By: #### Jennifer BC, BMP, MG1 ####[facility] Kvqifvricp8371 [address] Platelets Auto #/vol (Bld) 220 10*3/uL Normal 150-400 [facility] Comment on above: Performed By: #### Jennifer BC, BMP, MG1 ####[facility] Dgiqlhtdlj4792 [address]7[address] RBC Auto #/vol (Bld) 4.79 10*6/uL Normal 3.90-5.20 [facility] Comment on above: Performed By: #### C BC, BMP, MG1 ####[facility] Krjpfbyrdo3210 [address]7[address] WBC Auto #/vol (Bld) 5.66 10*3/uL Normal 3.70-11.00 [facility] Comment on above: Performed By: #### Jennifer BC, BMP, MG1 ####[facility] Vfnqbuqtoi8480 [address]7[address] CONSULTon 03-20-2018 CONSULT HNO ID: [id number] thor: [place]: NeurologyAuthor Type: PhysicianType: [...] high for her. Presented to [facility], treated as vertigo, prescribed Ativert and Valium and sent home whichdid not help her symptoms, made her feel drowsy. Followed up with PCP whoperformed orthostatics that increased going from laying to standing. HadEKG. Send to [place] ED. Strong family history of stroke so [...] 1.00 - 4.00 k/uL 2.12Mono% % 7.7Abs [place] <0.87 k/uL 0.65Eosin% % 3.7Abs Eosin <0.46 [...] NegativeBilirubin, Urine Negative NegativeKetones, Urine Negative NegativeSpecific Sarita, Ur 1.001 - 1.029 1.010Hemoglobin/Blood,Ur Negative NegativepH, [...] vestibular PT. No additionalneurological work-up needed.Rio Barr M.D.[facility] InstituteDepartment of NeurologyCenter for Regional NeurologyPager: [phone] [address] [facility] Lipid Panel, [place] 018 Cholesterol in HDL mass conc 49 mg/dL Normal >39 [facility] Comment on above: Result Comment: 40-5 9 mg/dL, Acceptable>59 mg/dL, High: Negative risk factor for coronary heart disease<40 mg/dL, Low: Positive risk factor for coronary heart disease Performed By: #### L IPB ####[address] [phone] Cholesterol in LDL mass conc 85 mg/dL Normal <100 [facility] Comment on above: Result Comment: <100 mg/dL, Optimal 100-129 mg/dL, Near optimal/above optimal 130-159 mg/dL, Borderline high 160-189 mg/dL, High>189 mg/dL, Very highSecondary prevention optimal LDL Cholesterol levels are recommended to be < 70 mg/dL Performed By: #### L IPB ####[facility] [address] [place], [place] [phone] Cholesterol mass conc 148 mg/dL Normal <200 [facility] Comment on above: Result Comment: <200 mg/dL, Desirable 200-239 mg/dL, Borderline high>239 mg/dL, High Performed By: #### L IPB ####[facility] [address]ov[address] [place], [place] [phone] Fasting Time Unknown Normal [facility] Comment on above: Performed By: #### L IPB ####[facility] [address]gayb[address]CPort[address], [place] [phone] LDL:HDL Ratio 1.73 [address] <2.54 [facility] Comment on above: Result Comment: Yvette jones:1. National Cholesterol Education Program ATP III Guideline At-A-Glance Quick Desk Reference: National Heart, Lung, and Blood [place]. National Institutes of Health. 2001: NIH Publication No. 01-3305.2. An International Atherosclerosis Society position paper: global recommendations for the management of dyslipidemia: executive summary, Atherosclerosis. 2014: 232(2):410-413. Performed By: #### L IPB ####[place] [address] [address], [place] [phone] Non HDL Cholesterol 99 mg/dL Normal <130 [facility] Comment on above: Result Comment: <130 mg/dL, Optimal 130-159 mg/dL, Near optimal/above optimal 160-189 mg/dL, Borderline high 190-219 mg/dL, High>219 mg/dL, Very highSecondary prevention optimal non HDL Cholesterol levels are recommended to be < 100 mg/dL Performed By: #### L IPB ####[facility], [place] [phone] TC:HDL Ratio 3.02 Normal <5.10 [facility] Comment on above: Performed By: #### L IPB ####[facility] [place], [place] [phone] Triglyceride mass conc 72 mg/dL Normal <150 [facility] Comment on above: Result Comment: <150 mg/dL, Normal 150-199 mg/dL, Borderline high 200-499 mg/dL, High>499 mg/dL, Very high Performed By: #### L IPB ####[place] [address], [place] [phone] VLDL Cholesterol 14 mg/dL Normal <30 [facility] Comment on above: Performed By: #### L IPB ####[facility] [address]ycgpr[address], [place] [phone] MRI BRAIN WO IVCONon 018 MRI BRAIN WO IVCON * * *Final Report* * *DATE OF EXAM: Mar 20 2018 11:31AM [facility] 0294 - MRI BRAIN WO IVCON [...] JAMIL MD on Mar 20 2018 11:53AM [id number] Normal [facility] Magnesiumon 03-20-2018 Magnesium mass conc 2.2 mg/dL Normal 1.7-2.3 [facility] Comment on above: Performed By: #### C BC, BMP, MG1 ####[facility] [address] [place], [place] [phone] NURSING PROGon 03-20-2018 Protein mass conc HNO ID: [id number] thor: Elza (Rn) THERESA Romeroervice: (none)Author Type: Registered NurseType: Nursing Progress NoteFiled: 03/20/2018 10:30 AMNote Text: Nursing Progress NotePatient Name: Bo JacobMRN: [id number] Location: [place] [address]/[id number]____ Daily Note:0735 RN assumed care of patient, patient resting in bed, assessmentcomplete, see NPR. Heart sounds regular, bowel sounds present, lung soundsclear, HR 83 SR on tele. IV patent, c/o dizziness, and a headache, lightsdimmed and repositioned.0856 Patient c/o headache and dizziness, medications given per OCT. HR 79SR on tele.1025 Report called to 2 North RN. Patient transferred in stable condition.This note was completed by: Elza Romero RN [facility] Protein mass conc HNO ID: [id number] thor: Ruth (Rn) THERESA Carreroervice: (none)Author Type: Registered NurseType: Nursing Progress NoteFiled: 03/20/2018 5:10 AMNote Text: Nursing Progress NotePatient Name: Bo JacobMRN: [id number] Location: [address]-2____ Daily Note:2000 Pt arrive on unit. Family present with pt. No sign of acute distress.2130 Pt sitting up in bed. SR on tele. No sign of distress. Family hasmultiple family members [id number] Pt laying in bed. No sign of distress. Pt asking when VS will betaken. Explained hospital policies on observation pt's, VS, and plan ofcare. Pt verbalizes understanding.0100 Pt laying in bed on back, sleeping. No sign of acute distress. SR [id number] Pt laying in bed, sleeping. No sign of acute distress. SR on [id number] Pt laying in bed, sleeping. SR on teleThis note was completed by: Ruth Carrero RN [facility] PROGRESSon 03-20-2018 Protein mass conc HNO ID: [id number] thor: Callie Jarvise: [facility] MedicineAuthor Type: PhysicianType: Progress NotesFiled: 03/20/2018 2:23 PMNote Text:[facility] MEDICINEPROGRESS NOTEName: Bo JacobMRN: [id number] DATE: 03/20/2018SERVICE TIME: 2:20 PMLOCATION / ROOM: [place] [address]/[address] [facility] Medicine/Primary Attending: Callie Damon MDNIGHT COVERAGE BETWEEN 5.30P-7.30APage 61042WHHZCSKFZS AND PLANActive Hospital Problems Diagnosis- Dizziness -ct head and MRI brain were negative.-pt complaining of episodic vertigo.-[place] halpike maneuver performed at bedside was positive.-Will get physical therapy to see the patient for teaching the [facility]aleu[facility] and further evaluation.-appreciate neurology .-meclizine not working [...] chewable tab(s) 81 mg ORAL DAILY Breanna ([employer]) Pena 81 mgat 03/20/18 48296.9% NaCl 3-5 mL 3-5 mL INTRAVENOUS q 12 H Breanna ([employer]) Pena 3 mL at03/20/18 0930ondansetron orally disintegrating 4 mg tab(s) (ZOFRAN ODT) 4 mg ORAL q 6 HPRN Breanna (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 Urinalysison 03-20-2018 Bilirubin, Urine Negative Normal Negative [facility] Comment on above: Performed By: #### U A, UAMIC ####[facility] [address] [place] [address] Clarity Clear Normal Clear [facility] Comment on above: Performed By: #### U A, UAMIC ####[facility] [address] [place] [address] Color Straw Critically abnormal Yellow [facility] Comment on above: Performed By: #### U A, UAMIC ####[facility] [address] [place] [address] Glucose Ql (U) Negative [facility] Comment on above: Performed By: #### U A, UAMIC ####[facility] [address] [place] [address] Hemoglobin/Blood,Ur Negative Normal Negative [facility] Comment on above: Performed By: #### U A, UAMIC ####[facility] [address]rapchr[address] [place] [address] Ketones Ql (U) Negative Normal [facility] Comment on above: Performed By: #### U A, UAMIC ####[facility] Mn[address]qsxdud[address] [place] [address] Leukest Trace Critically abnormal Negative [facility] Comment on above: Performed By: #### U A, UAMIC ####[facility] [address]vu[address] [place] [address] Nitrites Negative Normal [facility] Comment on above: Performed By: #### U A, UAMIC ####[facility] [address] [place] [address] pH 7.0 Normal 5.0-8.0 [facility] Comment on above: Performed By: #### U A, UAMIC ####[facility] J[address]zwn[address] [place] [address] Protein, Urine Negative Normal [facility] Comment on above: Performed By: #### U A, UAMIC ####[facility] Ytwrgivkbg2087 [place] [address] Specific Sarita, Ur 1.010 Normal 1.001-1.029 [facility] Comment on above: Performed By: #### U A, UAMIC ####[facility] Ekwfaywgkd2847 [place] [address] Urobilinogen 0.2 Normal 0.2-1.0 [facility] Comment on above: Performed By: #### U A, UAMIC ####[facility] Qgekwphlud4709 [place] [address] Urine Microscopic (FOR LAB U SE ONLY)on 03-20-2018 Cast SEE COMMENT Normal 0 [facility] Comment on above: Result Comment: 0 Performed By: #### U A, UAMIC ####[facility] [address] [place] [address] Epithelial Cells SEE COMMENT Normal [facility] Comment on above: Result Comment: 0-5S quamous Epithelial Cells Performed By: #### U A, UAMIC ####[facility]. [facility] [address] [place] [address] INR Coag RelTime (Bld) 0-3 Normal 0-3 [facility] Comment on above: Performed By: #### U A, UAMIC ####[facility] [address] [place] [address] WBC 0-5 Normal 0-5 [facility] Comment on above: Performed By: #### U A, UAMIC ####[facility] [address] [place] [address] CASE MGT INIT ASSESon 2017 CASE MGT INIT ASSES HNO ID: [id number] thor: Barbara (Rn) THERESA Arroyoervice: (none)Author Type: Registered NurseType: Care Mgt Initial AssessmentFiled: 03/19/2018 7:03 PMNote Text:CARE MANAGEMENT: ASSESSMENT AND DISCHARGE PLANSERVICE DATE: 03/19/2018SERVICE TIME: 6:56 PMRN Millinery Teacher met with patient at bedside in the emergency department.Introduction made and role of case management explained.Patient states she is agreeable to assessment questions.Assessment information provided by electronic medical record and patient.PRIMARY CARE PHYSICIAN: Loan Dias NP confirmedPhone: Upvttqr states she does not have any appointment scheduling preferencesADMISSION STATUS: EmergencyNeeds Prior to Discharge: To Be DeterminedMEDICAL:Patient/R epresentative Stated Goals:To have reduction in symptomsTo improve my functional statusTo return home to life as it wasHealth Insurance: [facility] and NoneHealth Issues Impacting Discharge Plan: Dizziness - HTNLast Admission Date: noneIs this Within the Past 30 days? NoAdvance Directive:Current Advance Directive: Health Care Power of Cane Splicer;Vitor Gomse Chart: NoHCPOA: Spouse Derrek Jacob [phone] Literacy:1. How often do you need to [...] Admission: NoneHas the Patient Been in a Alf Facility in the Past 30 days? 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 NoPharmacy Preference: [facility] Pharm[facility] in [facility] Concerns:In the Last Month, Have [...] [facility]SIGNATURE: Barbara Arroyo RN PATIENT NAME: Bo TarangoTE: March 19, 2018 : 6:56 PM PAGER/CONTACT #: [phone] [facility] CBC and Differentialon 03-19 Abs Baso 0.09 k/uL Normal <0.11 [facility] Comment on above: Performed By: #### C BCDIF, CMP, MG1 ####[facility] [address] [place] [address] Abs [place] 0.65 k/uL Normal <0.87 [facility] Comment on above: Performed By: #### C BCDIF, CMP, MG1 ####[facility] [address] [place] [address] Abs Neut 5.24 k/uL Normal 1.45-7.50 [facility] Comment on above: Performed By: #### C BCDIF, CMP, MG1 ####[facility] [address] [place] [id number] Basophils/100 WBC Auto (Bld) 1.1 % Normal [facility] Comment on above: Performed By: #### C BCDIF, CMP, MG1 ####[facility] [address] [place] [id number] Eosinophils Auto #/vol (Bld) 0.31 10*3/uL Normal <0.46 [facility] Comment on above: Performed By: #### C BCDIF, CMP, MG1 ####[facility] [address] [place] [address] Eosinophils/100 WBC Auto (Bld) 3.7 % Normal [facility] Comment on above: Performed By: #### C BCDIF CMP, MG1 ####[place] [address] Erythrocyte distribution width Auto Ratio (RBC) 13.5 % Normal 11.5-15.0 [facility] Comment on above: Performed By: #### C BCDIF CMP, MG1 ####[place] [address] Hematocrit Auto Volume Fraction (Bld) 46.4 % High 36.0-46.0 [facility] Comment on above: Performed By: #### C BCJIMMYF CMP, MG1 ####[place] [address] Hemoglobin mass conc (Bld) 15.4 g/dL Normal 11.5-15.5 [facility] Comment on above: Performed By: #### C BCDIF CMP, MG1 ####[place] [address] Lymphocytes Auto #/vol (Bld) 2.12 10*3/uL Normal 1.00-4.00 [facility] Comment on above: Performed By: #### C BCDIF CMP, MG1 ####[place] [address] Lymphocytes/100 WBC Auto (Bld) 25.2 % Normal [facility] Comment on above: Performed By: #### C BCDIF CMP, MG1 ####[place] [address] MCH Auto Entitic mass (RBC) 30.6 pG Normal 26.0-34.0 [facility] Comment on above: Performed By: #### C BCDIF CMP, MG1 ####[place] [address] MCHC Auto mass conc (RBC) 33.2 g/dL Normal 30.5-36.0 [facility] Comment on above: Performed By: #### C BCDIF, CMP, MG1 ####[place] [address] MCV Auto Entitic volume (RBC) 92.2 fL Normal 80.0-100.0 [facility] Comment on above: Performed By: #### C BCDIF, CMP, MG1 ####[facility] [address] [place] [address] Monocytes/100 WBC Auto (Bld) 7.7 % Normal [facility] Comment on above: Performed By: #### C BCDIF, CMP, MG1 ####[facility] [address] [place] [address] Neutrophils/100 WBC Auto (Bld) 62.3 % Normal [facility] Comment on above: Performed By: #### C BCDIF, CMP, MG1 ####[place] [address] Platelet mean volume Auto Entitic volume (Bld) 10.0 fL Normal 9.0-12.7 [facility] Comment on above: Performed By: #### C BCDIF, CMP, MG1 ####[place] [address] Platelets Auto #/vol (Bld) 255 10*3/uL Normal 150-400 [facility] Comment on above: Performed By: #### C BCDIF, CMP, MG1 ####[place] [address] RBC Auto #/vol (Bld) 5.03 10*6/uL Normal 3.90-5.20 [facility] Comment on above: Performed By: #### C BCDIF, CMP, MG1 ####[place] [address] WBC Auto #/vol (Bld) 8.41 10*3/uL Normal 3.70-11.00 [facility] Comment on above: Performed By: #### C BCDIF, CMP, MG1 ####[facility] [address] [place] [address] CK, Total and CKMBon 018 CK enzyme act/vol 64 U/L Normal 42-196 [facility] Comment on above: Performed By: #### C KCKMB ####[facility] [address] [place] [address] CK MB % CK MB % not reported with CK <100 U/L. Normal 0.0-4.0 [facility] Comment on above: Performed By: #### C LIANA ####[facility] [address] [place] [address] MB 1.8 ng/mL Normal <4.3 [facility] Comment on above: Performed By: #### C LIANA ####[facility] [address] [place] [address] Comp Metabolic Panelon 03-19 Albumin mass conc 4.6 g/dL Normal 3.9-4.9 [facility] Comment on above: Performed By: #### C BCDIF, CMP, MG1 ####[place] [address] ALP enzyme act/vol 91 U/L Normal 32-117 [facility] Comment on above: Performed By: #### C BCDIF, CMP, MG1 ####[facility] [address] [place] [address] ALT enzyme act/vol 41 U/L High 7-38 [facility] Comment on above: Performed By: #### C BCDIF, CMP, MG1 ####[place] [address] Anion gap 3 molar conc 12 mmol/L Normal 9-18 [facility] Comment on above: Performed By: #### C BCDIF, CMP, MG1 ####[facility] [address] [place] [address] AST enzyme act/vol 36 U/L High 13-35 [facility] Comment on above: Performed By: #### C BCDIF, CMP, MG1 ####[facility] [address] [place] [address] Bilirubin mass conc 0.4 mg/dL Normal 0.2-1.3 [facility] Comment on above: Performed By: #### C BCDIF, CMP, MG1 ####[facility] [address] [place] [address] Calcium mass conc 9.6 mg/dL Normal 8.5-10.2 [facility] Comment on above: Performed By: #### C BCJIMMYFRICK, MG1 ####[facility] [address] [place] [address] Chloride molar conc 104 mmol/L Normal 97-105 [facility] Comment on above: Performed By: #### C BCDIFRICK, MG1 ####[facility] [address] [place] [address] CO2 molar conc 26 mmol/L Normal 22-30 [facility] Comment on above: Performed By: #### C BCJIMMYFRICK, MG1 ####[facility] [address] [place] [address] Creatinine mass conc 0.88 mg/dL Normal 0.58-0.96 [facility] Comment on above: Performed By: #### C RICK LOMAX, MG1 ####[facility] [address] [place] [address] eGFR- Amer. >[address] [facility] Comment on above: Performed By: #### C RICK LOMAX, MG1 ####[facility] [address] [place] [address] GFR/1.73 sq M predicted among non-blacks MDRD vol rate/area (S/P/Bld) mL/min/{1.73_m2} Normal [facility] Comment on above: Result Comment: eGFR [...] reflect actual GFR. Performed By: #### C BCJIMMYFRICK, MG1 ####[facility] [address] [place] [address] Glucose mass conc 96 mg/dL Normal 74-99 [facility] Comment on above: Result Comment: The [employer] Diabetes Association (ADA) provides guidance for cutoff [...] Standards of Medical Care in Diabetes 2016, [employer]. Diabetes Care. 2016.39(Suppl 1). Performed By: #### C BCDIF, CMP, MG1 ####[facility] [address] [place] [address] Potassium molar conc 3.8 mmol/L Normal 3.7-5.1 [facility] Comment on above: Performed By: #### C BCDIF, CMP, MG1 ####[facility] [address] [place] [address] Protein mass conc 7.3 g/dL Normal 6.3-8.0 [facility] Comment on above: Performed By: #### C BCDIF, CMP, MG1 ####[facility] [address] [place] [address] Sodium molar conc 142 mmol/L Normal 136-144 [facility] Comment on above: Performed By: #### C BCDIF, CMP, MG1 ####[facility] [address] [place] [address] Urea nitrogen mass conc 13 mg/dL Normal 7-21 [facility] Comment on above: Performed By: #### C BCDIF, CMP, MG1 ####[facility] [address] [place] [address] ED NOTEon 03-19-2018 ED NOTE HNO ID: [id number] Author: Annie HendricksonRn) [place], BERNABE Service: (none) Author Type: Registered Nurse Type: ED Notes Filed: 03/19/2018 7:19 PM Note Text: pt updated on plan of care Normal [facility] ED NOTE HNO ID: [id number] Author: Alondra HendricksonRn) BERNABE Manzo Service: (none) Author Type: Registered Nurse Type: ED Notes Filed: 03/19/2018 6:27 PM Note Text: Ambulated to bathroom with assistance, continues to feel dizzy. [facility] ED NOTE HNO ID: [id number] Author: Alondra (Rn) Anais, BERNABE Service: (none) Author Type: Registered Nurse Type: ED Notes Filed: 03/19/2018 5:00 PM Note Text: XR at bedside [facility] ED NOTE HNO ID: [id number] thor: Alondra (Rn) Anais, RNService: (none)Author Type: Registered NurseType: ED NotesFiled: 03/19/2018 4:59 PMNote Text: Pt to ED c/o dizziness that started past Saturday. Reports that she wasseen by [facility] on Saturday and diagnosed with vertigo, [...] has intermittentdouble vision, none at this time. [facility] ED NOTE HNO ID: [id number] thor: Basim (Rn) Esme Gonzalesice: (none)Author Type: Registered NurseType: ED NotesFiled: 03/19/2018 4:37 PMNote Text:Bed: ED-11Expected date:Expected time:Means of arrival:Comments:Cecil - sent by Loan Dias Dizzy [facility] ED NOTE HNO ID: [id number] Author: Ruby HendricksonRn) BERNABE Walter Service: (none) Author Type: Registered Nurse Type: ED Notes Filed: 03/19/2018 4:36 PM Note Text: Patient presents to the ED from her PCP with positive orthostatics and dizziness. [facility] ED PROV NOTEon 03-19-2018 Protein mass conc HNO ID: [id number] thor: Heriberto Ballard III MDService: (none)Author Type: PhysicianType: ED Provider NotesFiled: 03/19/2018 10:29 PMNote Text:ED Provider NotePatient Name: Bo JacobMRN: [id number] DATE: 03/19/18HistoryPatient presents with:DizzinessHypertension6 2-year-old female, otherwise healthy, presents with dizziness, andtingling to upper lip. She states she's been dizzy for 4 days. Diagnosedwith vertigo at [facility] 2 days ago with a normal [...] The patient's never had a CVA or MO. She takesnothing for hypertension hyperlipidemia or diabetes. [...] for dizziness that's been4 days, seen at [facility] with a normal CT and labs however [...] of disposition: stableSIGNATURE: KIRILL Wolfe-Maria Elena Hutchinson (Kirill) Wwrwflb17/01/18 1846Attending NoteI have personally performed a face to face assessment of the patient andhave reviewed the PA/DOCUMENT PREPARATION SPECIALIST note. My posada findings include:62-year-old female presents emergency Department with complaint ofdizziness for the past 4 days. She also complains of some tingling of herupper lip. On examination she is awake alert she has no focal numbness orweakness. On ambulation the patient continues to complain of unsteadinessand dizziness she will be placed in observation for further evaluation andtreatment.Other additions or changes: NoneSignature: Heriberto Tim Elio, MDDate: 03/19/2018Time: 10:28 PMSmarisa Dumont Elio III, MD03/19/18 2229 [facility] EKGon 03-19-2018 Protein mass conc NAME : MADELINE JACOB SEPID : [id number] : 1955 Gender : FemaleRace : CaucasianORD : [id number] Procedure Date : Mar 19 2018 16:56:37Edit Date : Mar 20 2018 12:54:26 Diagnosis:NORMAL SINUS RHYTHMPOSSIBLE LEFT ATRIAL ENLARGEMENTLEFT AXIS DEVIATIONABNORMAL ECGNO PREVIOUS ECGS AVAILABLEConfirmed by MARIAH DINH M.D. ([id number]) on 03/20/2018 12:54:20 PM Ventricular Rate : 69 BPMAtrial Rate : 69 BPMP-R Interval : 148 msQRS Duration : 86 msQ-T Interval : 416 msQTC Calculation(Bezet) : 445 msP [place] : 33 degreesR [place] : -30 degreesT [place] : 12 degrees Test Reason : Dizziness Location : 1 : ER 11 Overread By : MARIAH DINH M.D.Edited By : MARIAH DINH M.D.Referred By : ,Acquired by : URI [facility] HISTORY PHYSICALon HISTORY PHYSICAL HNO ID: [id number] thor: Matti Haqueervice: Hospital MedicineAuthor Type: PhysicianType: HANDPFiled: 03/19/2018 11:06 PMNote Text:HOSPITAL MEDICINEHISTORY AND PHYSICAL EXAMPATIENT NAME: Bo JacobMRN: [id number] DATE: 03/19/2018SERVICE TIME: 6:54 [facility] Physician: Loan Dias NPNIGHT COVERAGEPage [phone] for any questions between 5.30p-7.30aASSESSMENT AND PLANActive Hospital Problems Diagnosis- Dizziness -dizziness for 4 days with intermittent blurred vision-continue antivert TID, valium made her drowsy-neuro consulted-tele monitoring-check A1C and lipid panel-BP control carefully-MRI in am-CT done 2 days ago at [facility] with no acute intracranial process- Hypertensive urgency SBP >200 in ED, clonidine given with improvement-tele monitoring-vital signs [id number] COMPLAINT: Dizziness and elevated BPHPI: This is a 62 year old female who presents with no PMH who presentswith dizziness and high blood pressure. She states she started to feeldizzy 4 days ago and her daughter (who is a nurse practitioner) took herBP and found it to be elevated so she went to [facility] to be evaluated andwas sent home on valium and antivert. She starts she didn't have muchrelief but it made her feel drowsy. She had a follow up with PCP thislion and was found to still be dizzy and have elevated blood pressure.She has no hx of htn and does not take any medications at home except babyaspirin. Her PCP then sent her here for evaluation. Her BP is stillelevating, and she is still reporting dizziness and blurred vision. A CTof her brain was done 2 days ago at [facility] and found to be negative forany [...] recent labsMost recent imagingMost recent EKGCBC:WBC 8.41 8HGB 15.4 03/19/2018Hematocrit 46.4 03/19/2018Platelet Count 255 03/19/2018CMP:Sodium 142 8Potassium 3.8 03/19/2018BUN 13 03/19/2018Creatinine 0.88 03/19/2018Glucose 96 03/19/2018Chloride 104 03/19/2018CO2 26 03/19/2018VTE Prophylaxis: Early AmbulationDisposition: HomePlan of care discussed with: PatientSIGNATURE: Breanna Pena APRN.CNPDATE: March 19, 2018TIME: 6:54 PMADDENDUMPatient seen and eval. Reviewed orders and HANDP from COMMAND AND CONTROL SPECIALIST.Patient presented with symptoms of vertigo x4 days [...] reviewed for today's visit:Most recent labsCBC:WBC 8.41 8HGB 15.4 8Hematocrit 46.4 03/19/2018Platelet Count 255 03/19/2018CMP:Sodium 142 8Potassium 3.8 03/19/2018BUN 13 03/19/2018Creatinine 0.88 03/19/2018Glucose 96 03/19/2018Chloride 104 8/1/4761TG7 26 03/19/2018Plan of care discussed with: Patient, daughter and sonSIGNATURE: Matti Aden, MDDATE: March 19, 2018TIME: 11:[address] [facility] Hemoglobin A1con 03-19-2018 Glucose mass conc 100 mg/dL Normal [facility] Comment on above: Result Comment: eAG: (Estimated average glucose) is a calculated value from HgbA1c and is sales representative groceries of the average blood glucose level in the last 2-3 month period. Performed By: #### H BA1C ####[address] [phone] Hemoglobin A1c/Hemoglobin.total mass fraction (Bld) 5.1 % Normal 4.3-5.6 [facility] Comment on above: Performed By: #### H BA1C ####[address] [phone] High Sens Troponin Ton 03-19 High Sensitivity KACY <6 Normal <12 [facility] Comment on above: Result Comment: [...] day MACE. Performed By: #### H STNT ####[facility] [address] [place], [place] [phone] High Sensitivity KACY <6 Normal <12 [facility] Comment on above: Result Comment: [...] day MACE. Performed By: #### H STNT ####[facility] [address] [place] [phone] Magnesiumon 03-19-2018 Magnesium mass conc 2.3 mg/dL Normal 1.7-2.3 [facility] Comment on above: Performed By: #### C BCDIF, CMP, MG1 ####[facility] [phone] XR CHEST 1V FRONTAL PORTon 0 03-19-2018 [...] or pleural effusions.Cardiomediastinal silhouette: Within normal limitsOther: .Memory Care Program Resident: PSCB Transcribe Date/Time: Mar 19 2018 5:08PDictated by : MARIBEL LINDSEY MDThis examination was interpreted and the report reviewed and electronically signed by: MARIBEL LINDSEY MD on Mar 19 2018 5:08PM [id number] Normal [facility] CT HEAD W/O CONTRASTon 03-17 CT HEAD W/O CONTRAST Performed at [facility] APPROVED BY: Caleb Shanks MD EXAMINATION: [...] unremarkable. IMPRESSION: No acute intracranial abnormality. Normal [facility] Comprehensive Panelon 2017 Albumin mass conc 3.7 g/dL Normal 3.4-5.0 [facility] Comment on above: Performed By: #### L P14 ####[facility] [place], [place] [address] ALP enzyme act/vol 99 U/L Normal 46-116 [facility] Comment on above: Performed By: #### L P14 ####[place] [address] ALT-SGPT Blood 47 U/L Normal 14-63 [facility] Comment on above: Performed By: #### L P14 ####[place] [address] Anion gap 3 molar conc 9 mmol/L Normal 8-20 [facility] Comment on above: Performed By: #### L P14 ####[place] [address] AST-SGOT Blood 24 U/L Normal 15-37 [facility] Comment on above: Performed By: #### L P14 ####[place] [address] Bilirubin Ql (U) 0.6 mg/dL Normal 0.2-1.0 [facility] Comment on above: Performed By: #### L P14 ####[address] [address] Calcium mass conc 8.9 mg/dL Normal 8.5-10.1 [facility] Comment on above: Performed By: #### L P14 ####[address] [address] Chloride molar conc 110 mmol/L High 98-107 [facility] Comment on above: Performed By: #### L P14 ####[place] [address] CO2 molar conc 28 mmol/L Normal 21-32 [facility] Comment on above: Performed By: #### L P14 ####[place] [address] Creatinine mass conc 0.84 mg/dL Normal 0.51-0.95 [facility] Comment on above: Performed By: #### L P14 ####[facility] [place], [place] [address] Glucose mass conc 108 mg/dL High 70-99 [facility] Comment on above: Performed By: #### L P14 ####[facility] [place] [address] Potassium molar conc 3.8 mmol/L Normal 3.5-5.1 [facility] Comment on above: Performed By: #### L P14 ####[place] [address] Protein mass conc 6.9 g/dL Normal 6.4-8.2 [facility] Comment on above: Performed By: #### L P14 ####[place] [address] Sodium molar conc 143 mmol/L Normal 136-145 [facility] Comment on above: Performed By: #### L P14 ####[address] [address] Urea nitrogen mass conc (Bld) 19 mg/dL Normal 7-25 [facility] Comment on above: Performed By: #### L P14 ####[place] [address] Urea nitrogen/Creatinine mass ratio 23 mg/mg High 10-20 [facility] Comment on above: Performed By: #### L P14 ####[address] [address] ED NOTEon 03-17-2018 ED NOTE HNO ID: [id number] Author: Maria Fernanda HendricksonRn) BERNABE Bolanos Service: (none) Author Type: Registered Nurse Type: ED Notes Filed: 03/17/2018 12:34 PM Note Text: Pt moving all extremities, speech clear No s/s of distress Normal [facility] ED NOTE HNO ID: [id number] thor: Maria Fernanda HendricksonRn) THERESA Bolanoservice: (none)Author Type: Registered NurseType: ED NotesFiled: 03/17/2018 12:29 PMNote Text:Dr Fong at bedsidePt resting quietlyStates Now I have a headache Reports 02/25Denies improvement of dizzinessSpeech clear, moving all extremities, no s/s of distress Normal [facility] ED NOTE HNO ID: [id number] Author: Maria Fernanda HendricksonRn) BERNABE Bolanos Service: (none) Author Type: Registered Nurse Type: ED Notes Filed: 03/17/2018 11:40 AM Note Text: Patient returned to the Emergency Department. Normal [facility] ED NOTE HNO ID: [id number] Author: Maria Fernanda Valdovinos (Rn) BERNABE Bolanos Service: (none) Author Type: Registered Nurse Type: ED Notes Filed: 03/17/2018 11:40 AM Note Text: Patient transported to radiology with Tech. [facility] ED NOTE HNO ID: [id number] thor: Maria Fernanda Zavala) THERESA Bolanoservice: (none)Author Type: Registered NurseType: ED NotesFiled: 03/17/2018 12:03 PMNote Text: Patient informed: the name of medication, why we are giving it, possibleside effects, what they may expect to feel, and was offered a chance toask questions, prior to the administration of valium and zofran. [facility] ED NOTE HNO ID: [id number] thor: Maria Fernanda Zavala) THERESA Bolanoservice: (none)Author Type: Registered NurseType: ED NotesFiled: 03/17/2018 10:57 AMNote Text:To ED bed 5 via hospital wheelchair, c/o dizziness since SaturdayNo s/s of distress, moving all extremities. Dr Fong at bedside [facility] ED PROV NOTEon 03-17-2018 Protein mass conc HNO ID: [id number] thor: DION Ramirezervice: Emergency MedicineAuthor Type: PhysicianType: ED Provider NotesFiled: 03/17/2018 12:11 PMNote Text:ED Provider NotePatient Name: Bo JacobMRN: [id number] DATE: 03/17/18HistoryPatient presents with:DizzinessHPIPatient presents with 2 [...] stable condition.SIGNATURE: Archie Mccracken MD03/17/18 1211 Normal [facility] Hemogram/Diffon 03-17-2018 Abs. Baso 0.05 thou/cmm Normal 0.00-0.08 [facility] Comment on above: Performed By: #### L CBCD ####[place] [address] Abs. [place] 0.45 thou/cmm Normal 0.20-1.00 [facility] Comment on above: Performed By: #### L CBCD ####[place] [address] Abs. Neut (ANC) 4.06 thou/cmm Normal 3.00-5.67 [facility] Comment on above: Performed By: #### L CBCD ####[place] [address] Basophils/100 WBC Auto (Bld) 0.8 % Normal [facility] Comment on above: Performed By: #### L CBCD ####[place] [address] Eosinophils Auto #/vol (Bld) 0.24 thou/cmm Normal 0.00-0.41 [facility] Comment on above: Performed By: #### L CBCD ####[address] [address] [address] Eosinophils/100 WBC Auto (Bld) 3.9 % Normal [facility] Comment on above: Performed By: #### L CBCD ####[address] [address] Erythrocyte distribution width Auto Ratio (RBC) 13.1 % Normal 11.5-15.9 [facility] Comment on above: Performed By: #### L CBCD ####[address] [address] Hematocrit Auto Volume Fraction (Bld) 45.2 % Normal 37.0-47.0 [facility] Comment on above: Performed By: #### L CBCD ####[address] [address] Hemoglobin mass conc (Bld) 14.9 g/dL Normal 12.0-16.0 [facility] Comment on above: Performed By: #### L CBCD ####[address] [address] Lymphocytes Auto #/vol (Bld) 1.40 thou/cmm Low 1.50-3.65 [facility] Comment on above: Performed By: #### L CBCD ####[address] [address] Lymphocytes/100 WBC Auto (Bld) 22.6 % Normal [facility] Comment on above: Performed By: #### L CBCD ####[address] [address] MCH Auto Entitic mass (RBC) 30.5 pg Normal 27.0-31.0 [facility] Comment on above: Performed By: #### L CBCD ####[address] [address] MCHC Auto mass conc (RBC) 33.0 % Normal 32.0-36.0 [facility] Comment on above: Performed By: #### L CBCD ####[address] [address] MCV Auto Entitic volume (RBC) 92.4 fL Normal 81.0-99.0 [facility] Comment on above: Performed By: #### L CBCD ####[place] [address] Monocytes/100 WBC Auto (Bld) 7.3 % Normal [facility] Comment on above: Performed By: #### L CBCD ####[place] [address] Platelet mean volume Auto Entitic volume (Bld) 10.1 fL Normal 7.1-10.5 [facility] Comment on above: Performed By: #### L CBCD ####[place] [address] Platelets Auto #/vol (Bld) 251 thou/cmm Normal 150-400 [facility] Comment on above: Performed By: #### L CBCD ####[place] [address] RBC Auto #/vol (Bld) 4.89 mil/cmm Normal 4.20-5.40 [facility] Comment on above: Performed By: #### L CBCD ####[place] [address] Seg Neutrophil 65.4 % Normal [facility] Comment on above: Performed By: #### L CBCD ####[place] [address] WBC Auto #/vol (Bld) 6.2 thou/cmm Normal 4.8-10.8 [facility] Comment on above: Performed By: #### L CBCD ####[place] [address] MDRD eGFRon 03-17-2018 GFR/1.73 sq M predicted among non-blacks MDRD vol rate/area (S/P/Bld) mL/min/{1.73_m2} Normal >60mL/min/1 .73m2 [facility] Comment on above: Result Comment: If t he patient is , multiply the result by 1.210. Performed By: #### L GFR ####[place] [address] [facility]24[id number] thor: Mammography CoordinatorService: (none)Author Type: PhysicianType: LetterFiled: 10/28/2017 11:32 PMNote Text:October 24, 2017 PID: [id number] [place], [place] [address]Kgll Ms. Jacob,Your recent breast imaging examination performed [...] in meeting your health care needs.Sincerely,Dr. GoddardInterpreting [facility] (# [facility] Follow[facility]) [facility] [id number] thor: Mammography CoordinatorService: (none)Author Type: PhysicianType: LetterFiled: 10/28/2017 11:32 PMNote Text:October 24, 2017 PID: [id number] [place], [place] [address]Iwjt Ms. Jacob,Your recent breast imaging examination performed [...] in meeting your health care needs.Sincerely,Dr. GoddardInterpreting [facility] (# mo Follow-up) Normal [facility] DIAGNOSTIC BILon 018 [facility] DIAGNOSTIC TRACEE * * *Final Report* * *DATE OF EXAM: Oct 24 2017 12:56PM W 0620 - [facility] DIAGNOSTIC TRACEE / REASON: breast mass n63 right * * * * Physician Interpretation * * * * #[id number] - [facility] DIAGNOSTIC BILBILATERAL DIGITAL DIAGNOSTIC MAMMOGRAM WITH CAD: 10/24/2017HISTORY: Breast Mass N63 Right /Bilateral Diagnostic Mammogram;Call Back/Abnormal Mammogram.RESULT:TECHNIQUE: The study was acquired using full field digital technology and interpreted from soft copy.Current study was also evaluated with a Computer Aided Detection (CAD).Comparison is made to exam dated: 10/11/2017 mammogram - [facility].The tissue of both breasts is predominantly [...] asymmetry in the right breast is probably benign.#[id number] - [facility] US BREAST LTD RTULTRASOUND OF RIGHT BREAST: 10/24/2017RESULT:Comparison is made to exam dated: 10/11/2017 mammogram - [facility].Ultrasound of the right breast was performed. [...] follow up recommended.Dimitri España/charlene:10/24/2017 13:35:38Imaging Technologist: Shelley MINA (R)(Susanna), [facility]: # Mo FU OVERALL STUDY BIRADS: 3 Probably benign finding - short term interval follow-up recommendedTranscriptionist : CharleneTranscribtremayne Date/Time: Oct 24 2017 12:38PDictated by : Vini STUART examination was interpreted and the report reviewed and electronically signed by: DIMITRI GODDARD DO on Oct 24 2017 1:35PM [id number] Normal [facility] RooT BREAST LTD RTon 10-24 [facility] RooT BREAST [employer] RT * * *Final Report* * *DATE OF EXAM: Oct 24 2017 1:31PM MDU 0594 - [facility] RooT BREAST [employer] RT / REASON: ABNORMAL MAMMOGRAM * * * * Physician Interpretation * * * * #[id number] - [facility] DIAGNOSTIC BILBILATERAL DIGITAL DIAGNOSTIC MAMMOGRAM WITH CAD: 10/24/2017HISTORY: Breast Mass N63 Right /Bilateral Diagnostic Mammogram;Call Back/Abnormal Mammogram.RESULT:TECHNIQUE: The study was acquired using full field digital technology and interpreted from soft copy.Current study was also evaluated with a Computer Aided Detection (CAD).Comparison is made to exam dated: 10/11/2017 mammogram - [facility].The tissue of both breasts is predominantly [...] asymmetry in the right breast is probably benign.#[id number] - [facility] RooT BREAST [employer] RTULTRASOUND OF RIGHT BREAST: 10/24/2017RESULT:Comparison is made to exam dated: 10/11/2017 mammogram - [facility].Ultrasound of the right breast was performed. [...] up recommended.Dimitri España/charlene:10/24/2017 13:35:38Imaging Technologist: Shelley CARLOS)(Susanna), [facility] sent: # Mo FU OVERALL STUDY BIRADS: 3 Probably benign finding - short term interval follow-up recommendedTranscriptionist : CharleneTranscribtremayne Date/Time: Oct 24 2017 12:38PDictated by : Vini STUART examination was interpreted and the report reviewed and electronically signed by: DIMITRI GODDARD DO on Oct 24 2017 1:35PM [id number] [facility] CNCOon 10-11-2017 [facility] HNO ID: [id number] thor: Mammography CoordinatorService: (none)Author Type: PhysicianType: LetterFiled: 2017 11:33 PMNote Text:October 11, 2017 PID: [id number] [place], [place] [address]Kqub Ms. Jacob,Your recent breast imaging exam on [...] in meeting your health care needs.Sincerely,Dr. GoddardInterpreting [facility] (Additional imaging) [facility] SCREENINGon 10-11-2017 [facility] SCREENING * * *Final Report* * *DATE OF EXAM: Oct 11 2017 10:29AM CHRIS 0581 - [facility] SCREENING / REASON: Z12.39 SCREENING * * * * Physician Interpretation * * * * #[id number] - [facility] SCREENINGBILATERAL DIGITAL SCREENING MAMMOGRAM WITH CAD: 10/11/2017HISTORY: [...] well as a possible ultrasound are recommended.Dimitri España/penrad:10/11/2017 12:57:42Imaging Technologist: Lisa CARLOS)(Susanna), [facility]: Additional Imaging NeededMammogram BI-RADS: 0 Incomplete: needs additional imaging evaluationTranscriptionist: CharleneTranscribtremayne Date/Time: Oct 11 2017 10:18ADictated by : Vini STUART examination was interpreted and the report reviewed and electronically signed by: DIMITRI GODDARD DO on Oct 11 2017 12:57PM [id number] Normal [facility] CHEST 2 VIEWSon 05-18-2017 Protein mass conc Performed at [facility] APPROVED BY: Tree Hernanedz MD EXAMINATION: CHEST RADIOGRAPH (2 VIEW FRONTAL & LATERAL) Clinical History: Chest painM: XC2_3Comparison: 08/17/2015 RESULT: Lines, tubes, and devices: None. Lungs and pleura: Mild hyperinflation. No pneumonia, congestion or pleural effusion. Cardiomediastinal silhouette: Normal cardiomediastinal silhouette. Other: No acute bony abnormality. IMPRESSION: No acute radiographic abnormality. Normal [facility] ED NOTEon 05-18-2017 ED NOTE HNO ID: [id number] thor: Valeria (Rn) THERESA Munozervice: Emergency MedicineAuthor Type: Registered NurseType: ED NotesFiled: 05/18/2017 10:41 AMNote Text:Pt was leaning over a fence and felt a pop. Pt now having l rib pain thatis getting worse Normal [facility] ED PROV NOTEon 05-18-2017 Protein mass conc HNO ID: [id number] thor: DION Blairervice: Emergency MedicineAuthor Type: PhysicianType: ED Provider NotesFiled: 05/18/2017 11:53 AMNote Text:ED Provider NotePatient Name: Bo JacobMRN: [id number] DATE: 05/18/17HistoryPatient presents with:Rib InjuryPatient is a [...] rib fxWill fu pcp, ED inc sx [place] painNo diagnosis found.PlanThe Patient was DISCHARGED: Counseled patient regarding suspecteddiagnosis AND need for follow-up. Discharged home with verbal and writteninstructions. They were instructed to return as needed for persistent orworsening symptoms or any new concerns.Condition at time of disposition: stableSIGNATURE: Emy Salgado, Tyrell Salgado MD05/18/17 1153 Normal [facility] Vital Signs Date Time Vital Sign Value Performing Clinician Facility 06-25-2025 09:18-0500 Body height 154.94 cm Loan LAURA Work Phone: [facility] 06-25-2025 09:18-0500 Body mass index (BMI) [Ratio] 34 kg/m2 Loan LAURA Work Phone: [facility] 06-25-2025 09:18-0500 Body weight 81.64 kg Loan LAURA Work Phone: [facility] 06-25-2025 09:18-0500 Diastolic blood pressure 91 mm[Hg] Loan LAURA Work Phone: [facility] 06-25-2025 09:18-0500 Heart rate 73 /min Loan LAURA Work Phone: [facility] 06-25-2025 09:18-0500 Respiratory rate 16 /min Loanaruna Dias [employer] Work Phone: [facility] 06-25-2025 09:18-0500 Systolic blood pressure 155 mm[Hg] Loanaruna Dias [employer]IST[employer] Work Phone: [facility] 06-24-2025 12:10-0500 Diastolic blood pressure 81 mm[Hg] Loanaruna Dias [employer]IST[employer] Work Phone: [facility] 06-24-2025 12:10-0500 Heart rate 76 /min Loanaruna Dias [employer]IST[employer]C Work Phone: [facility] 06-24-2025 12:10-0500 Respiratory rate 16 /min Loanaruna Dias [employer]IST[employer]C Work Phone: [facility] 06-24-2025 12:10-0500 SaO2% (BldA) [Mass fraction] 98 % Loanaruna Dias [employer]IST[employer]C Work Phone: [facility] 06-24-2025 12:10-0500 Systolic blood pressure 134 mm[Hg] Loanaruna Dias [employer]IST[employer]C Work Phone: [facility] 06-24-2025 12:07-0500 Body temperature 98.9 [degF] Loan Dias [employer]IST[employer]C Work Phone: [facility] 06-24-2025 10:28-0500 Body mass index (BMI) [Ratio] 34.4 kg/m2 Loanaruna Dias [employer]IST[employer]C Work Phone: [facility] 06-24-2025 10:28-0500 Body weight 82.73 kg Loanaruna Dias [employer] SPECIALIST[employer]C Work Phone: [facility] 06-15-2025 09:32-0400 Body height 154.94 cm Loan Dias [employer]IST[employer]C Work Phone: [facility] 06-15-2025 09:32-0400 Body mass index (BMI) [Ratio] 34.6 kg/m2 Loan Dias [employer]IST[employer]C Work Phone: [facility] 06-15-2025 09:32-0400 Body temperature 97.7 [degF] Loan Dias [employer]IST[employer]C Work Phone: [facility] 06-15-2025 09:32-0400 Body weight 83.14 kg Loan Dias [employer]IST[employer]C Work Phone: [facility] 06-15-2025 09:32-0400 Diastolic blood pressure 87 mm[Hg] Loan Dias [employer]IST[employer]C Work Phone: [facility] 06-15-2025 09:32-0400 Heart rate 84 /min Loanaruna Dias [employer]IST[employer]C Work Phone: [facility] 06-15-2025 09:32-0400 Respiratory rate 16 /min Loanaruna Dias [employer]IST[employer]C Work Phone: [facility] 06-15-2025 09:32-0400 SaO2% (BldA) [Mass fraction] 98 % Loan Dias [employer]IST[employer]C Work Phone: [facility] 06-15-2025 09:32-0400 Systolic blood pressure 138 mm[Hg] Loan Dias [employer]IST[employer]C Work Phone: [facility] 06-09-2025 14:19-0400 Body height 154.94 cm Loan Dias [employer]IST[employer]C Work Phone: [facility] 06-09-2025 14:19-0400 Body mass index (BMI) [Ratio] 34.4 kg/m2 Loanaruna Dias [employer]IST[employer]C Work Phone: [facility] 06-09-2025 14:19-0400 Body temperature 99.2 [degF] Loan Dias [employer] SPECIALIST[employer]C Work Phone: [facility] 06-09-2025 14:19-0400 Body weight 82.8 kg Loan Dias [employer]IST[employer]C Work Phone: [facility] 06-09-2025 14:19-0400 Diastolic blood pressure 78 mm[Hg] Loan Dias [employer]IST[employer]C Work Phone: [facility] 06-09-2025 14:19-0400 Heart rate 82 /min Loan Dias [employer]IST[employer]C Work Phone: [facility] 06-09-2025 14:19-0400 Respiratory rate 18 /min Loan Dias [employer]IST[employer]C Work Phone: [facility] 06-09-2025 14:19-0400 SaO2% (BldA) [Mass fraction] 99 % Loan Dias [employer]IST[employer]C Work Phone: [facility] 06-09-2025 14:19-0400 Systolic blood pressure 129 mm[Hg] Loan Dias [employer] SPECIALIST[employer]C Work Phone: [phone] 06-03-2025 07:58-0400 Body mass index (BMI) [Ratio] 34.2 kg/m2 Loan Dias [employer]IST[employer]C Work Phone: [facility] 06-03-2025 07:58-0400 Body temperature 97.8 [degF] Loan Dias [employer]IST[employer]C Work Phone: [facility] 06-03-2025 07:58-0400 Body weight 82.27 kg Loan Dias [employer]IST[employer]C Work Phone: [facility] 06-03-2025 07:58-0400 Diastolic blood pressure 91 mm[Hg] Loan Dias [employer]IST[employer]C Work Phone: [facility] 06-03-2025 07:58-0400 Heart rate 78 /min Loan Dias [employer]IST[employer]C Work Phone: [facility] 06-03-2025 07:58-0400 Respiratory rate 16 /min Loan Dias [employer]IST[employer]C Work Phone: [facility] 06-03-2025 07:58-0400 SaO2% (BldA) [Mass fraction] 98 % Loan Dias [employer]IST[employer]C Work Phone: [facility] 06-03-2025 07:58-0400 Systolic blood pressure 142 mm[Hg] Loan Dias [employer] SPECIALIST[employer]C Work Phone: [facility] 04-13-2025 15:12-0400 Body height 154.94 cm Loan Dias [employer]IST[employer]C Work Phone: [facility] 04-13-2025 15:12-0400 Body mass index (BMI) [Ratio] 34.5 kg/m2 Loanaruna Dias [employer]IST[employer]C Work Phone: [facility] 04-13-2025 15:12-0400 Body temperature 97.5 [degF] Loan Dias [employer]IST[employer]C Work Phone: [facility] 04-13-2025 15:12-0400 Body weight 83 kg Loan Dias [employer]IST[employer]C Work Phone: [facility] 04-13-2025 15:12-0400 Diastolic blood pressure 60 mm[Hg] Loan Dias [employer]IST[employer]C Work Phone: [facility] 04-13-2025 15:12-0400 Heart rate 106 /min Loan Dias [employer]IST[employer]C Work Phone: [facility] 04-13-2025 15:12-0400 Respiratory rate 18 /min Loan Dias [employer]IST[employer]C Work Phone: [facility] 04-13-2025 15:12-0400 SaO2% (BldA) [Mass fraction] 98 % Loan Dias [employer]IST[employer]C Work Phone: [facility] 04-13-2025 15:12-0400 Systolic blood pressure 120 mm[Hg] Loan Dias [employer]IST[employer]C Work Phone: [facility] 04-08-2025 09:29-0400 Body height 154.94 cm Loan Dias [employer]IST-C Work Phone: [facility] 04-08-2025 09:29-0400 Body mass index (BMI) [Ratio] 34.5 kg/m2 Loan Dias [employer]IST[employer]C Work Phone: [facility] 04-08-2025 09:29-0400 Body weight 83 kg Loan Dias [employer]IST-C Work Phone: [facility] 04-08-2025 09:29-0400 Diastolic blood pressure 83 mm[Hg] Loan Dias [employer] SPECIALIST-C Work Phone: [facility] 04-08-2025 09:29-0400 Heart rate 85 /min Loanaruna Dias [employer]IST-C Work Phone: [facility] 04-08-2025 09:29-0400 SaO2% (BldA) [Mass fraction] 98 % Loan Dias [employer] SPECIALIST-C Work Phone: [facility] 04-08-2025 09:29-0400 Systolic blood pressure 129 mm[Hg] Loanaruna Dias [employer] SPECIALIST-C Work Phone: [facility] 04-04-2025 03:57-0400 Body temperature 98 [degF] Loan Dias [employer]IST-C Work Phone: [facility] 04-04-2025 03:57-0400 Diastolic blood pressure 90 mm[Hg] Loan Dias [employer] SPECIALIST-C Work Phone: [facility] 04-04-2025 03:57-0400 Heart rate 70 /min Loanaruna Dias [employer]IST-C Work Phone: [facility] 04-04-2025 03:57-0400 Respiratory rate 12 /min Loan Dias [employer] SPECIALIST-C Work Phone: [facility] 04-04-2025 03:57-0400 SaO2% (BldA) [Mass fraction] 96 % Loan Dias [employer] SPECIALIST-C Work Phone: [facility] 04-04-2025 03:57-0400 Systolic blood pressure 129 mm[Hg] Loan Dias [employer]IST-C Work Phone: [facility] 04-04-2025 01:05-0400 Body height 154.94 cm Loanaruna Dias [employer]IST[employer]C Work Phone: [facility] 04-04-2025 01:05-0400 Body mass index (BMI) [Ratio] 36.1 kg/m2 Loanaruna Dias [employer]IST[employer]C Work Phone: [facility] 04-04-2025 01:05-0400 Body weight 86.8 kg Loanaruna Dias [employer] SPECIALIST-C Work Phone: [facility] 03-12-2025 11:14-0400 Body height 154.94 cm Loanaruna Dias [employer] SPECIALIST-C Work Phone: [facility] 03-12-2025 11:14-0400 Body mass index (BMI) [Ratio] 35.1 kg/m2 Loanaruna Dias [employer] SPECIALIST-C Work Phone: [facility] 03-12-2025 11:14-0400 Body weight 84.36 kg Loanaruna Dias [employer] SPECIALIST-C Work Phone: [facility] 03-12-2025 11:14-0400 Diastolic blood pressure 79 mm[Hg] Loanaruna Dias [employer] SPECIALIST-C Work Phone: [facility] 03-12-2025 11:14-0400 Heart rate 80 /min Loanaruna Dias [employer] SPECIALIST-C Work Phone: [facility] 03-12-2025 11:14-0400 Respiratory rate 16 /min Loanaruna Dias [employer] SPECIALIST-C Work Phone: [facility] 03-12-2025 11:14-0400 Systolic blood pressure 113 mm[Hg] Loanaruna Dias [employer] SPECIALIST-C Work Phone: [facility] 03-10-2025 13:47-0400 Body height 154.94 cm Loanaruna Dias [employer] SPECIALIST-C Work Phone: [facility] 03-10-2025 13:47-0400 Body mass index (BMI) [Ratio] 34 kg/m2 Loan Dias [employer] SPECIALIST-C Work Phone: [facility] 03-10-2025 13:47-0400 Body weight 81.7 kg Loan Dias [employer] SPECIALIST-C Work Phone: [facility] 03-10-2025 08:54-0400 Body height 154.9 cm Jarred Angeli DPM Work Phone: [facility] 03-10-2025 08:54-0400 Body mass index (BMI) [Ratio] 33.63 kg/m2 Jarred Angeli DPM Work Phone: [facility] 03-10-2025 08:54-0400 Body weight 80.74 kg Jarred Angeli DPM Work Phone: [facility] 03-10-2025 08:54-0400 Respiratory rate 18 /min Jarred Angeli DPM Work Phone: [facility] 12-14-2024 15:36-0400 Body mass index (BMI) [Ratio] 33.6 kg/m2 Loan Dias [employer] SPECIALIST-C Work Phone: [facility] 12-14-2024 15:36-0400 Body temperature 96.7 [degF] Loan Dias [employer] SPECIALIST-C Work Phone: [facility] 12-14-2024 15:36-0400 Body weight 80.73 kg Loan Dias [employer] SPECIALIST-C Work Phone: [facility] 12-14-2024 15:36-0400 Diastolic blood pressure 84 mm[Hg] Loan Dias [employer] SPECIALIST-C Work Phone: [facility] 12-14-2024 15:36-0400 Heart rate 63 /min Loan Dias [employer] SPECIALIST-C Work Phone: [facility] 12-14-2024 15:36-0400 Respiratory rate 16 /min Loan Dias [employer] SPECIALIST-C Work Phone: [facility] 12-14-2024 15:36-0400 SaO2% (BldA) [Mass fraction] 100 % Loan Dias [employer] SPECIALIST-C Work Phone: [facility] 12-14-2024 15:36-0400 Systolic blood pressure 144 mm[Hg] Loan Arun [employer] SPECIALIST-C Work Phone: [facility] 12-09-2024 11:01-0400 Body temperature 98.29 [degF] Nurse Pob Work Phone: [facility] 11-04-2024 14:42-0400 Body mass index (BMI) [Ratio] 31.18 kg/m2 Francisco Gorman MD Work Phone: [facility] 11-04-2024 14:42-0400 Body weight 74.84 kg Francisco Gorman MD Work Phone: [facility] 11-04-2024 14:42-0400 Diastolic blood pressure 87 mm[Hg] Francisco Gorman MD Work Phone: [facility] 11-04-2024 14:42-0400 Heart rate 76 /min Francisco Gorman MD Work Phone: [facility] 11-04-2024 14:42-0400 SaO2% (BldA) [Mass fraction] 98 % Francisco Gorman MD Work Phone: [facility] 11-04-2024 14:42-0400 Systolic blood pressure 143 mm[Hg] Francisco Gorman MD Work Phone: [facility] 10-28-2024 10:07-0400 Body mass index (BMI) [Ratio] 31.55 kg/m2 Smith Lopez MD Work Phone: [facility] 10-28-2024 10:07-0400 Body weight 75.75 kg Smith Lopez MD Work Phone: [facility] 10-28-2024 10:07-0400 Diastolic blood pressure 80 mm[Hg] Smith Lopez MD Work Phone: [facility] 10-28-2024 10:07-0400 Heart rate 73 /min Smith Lopez MD Work Phone: [facility] 10-28-2024 10:07-0400 SaO2% (BldA) [Mass fraction] 98 % Smith Lopez MD Work Phone: [facility] 10-28-2024 10:07-0400 Systolic blood pressure 138 mm[Hg] Smith Lopez MD Work Phone: [facility] 10-27-2024 14:34-0400 Body height 154.94 cm Loan Dias [employer]IST-C Work Phone: [facility] 10-27-2024 14:34-0400 Body mass index (BMI) [Ratio] 32.7 kg/m2 Loan Dias [employer]IST-C Work Phone: [facility] 10-27-2024 14:34-0400 Body temperature 97.8 [degF] Loan Dias [employer] SPECIALIST-C Work Phone: [facility] 10-27-2024 14:34-0400 Body weight 78.52 kg Loan Dias [employer] SPECIALIST-C Work Phone: [facility] 10-27-2024 14:34-0400 Diastolic blood pressure 76 mm[Hg] Loan Dias [employer] SPECIALIST-C Work Phone: [facility] 10-27-2024 14:34-0400 Heart rate 86 /min Loan Dias [employer] SPECIALIST-C Work Phone: [facility] 10-27-2024 14:34-0400 Respiratory rate 18 /min Loan Dias [employer] SPECIALIST-C Work Phone: [facility] 10-27-2024 14:34-0400 SaO2% (BldA) [Mass fraction] 100 % Loan Dias [employer] SPECIALIST-C Work Phone: [facility] 10-27-2024 14:34-0400 Systolic blood pressure 174 mm[Hg] Loan Dias [employer] AND CONTROL SPECIALIST-C Work Phone: [facility] 10-08-2024 17:44-0500 Body mass index (BMI) [Ratio] 32.3 kg/m2 Loan Dias COMMAND AND CONTROL SPECIALIST-C Work Phone: [facility] 10-08-2024 17:44-0500 Body temperature 97.7 [degF] Loan Dias COMMAND AND CONTROL SPECIALIST-C Work Phone: [facility] 10-08-2024 17:44-0500 Body weight 77.56 kg Loan Dias COMMAND AND CONTROL SPECIALIST-C Work Phone: [facility] 10-08-2024 17:44-0500 Diastolic blood pressure 60 mm[Hg] Loan Dias COMMAND AND CONTROL SPECIALIST-C Work Phone: [facility] 10-08-2024 17:44-0500 Heart rate 80 /min Loanaruna Dias COMMAND AND CONTROL SPECIALIST-C Work Phone: [facility] 10-08-2024 17:44-0500 Respiratory rate 18 /min Loanaruna Dias COMMAND AND CONTROL SPECIALIST-C Work Phone: [facility] 10-08-2024 17:44-0500 SaO2% (BldA) [Mass fraction] 98 % Loan Dias COMMAND AND CONTROL SPECIALIST-C Work Phone: [facility] 10-08-2024 17:44-0500 Systolic blood pressure 140 mm[Hg] Loan Dias COMMAND AND CONTROL SPECIALIST-C Work Phone: [facility] 09-21-2024 10:29-0500 Body mass index (BMI) [Ratio] 32.9 kg/m2 Loan Dias COMMAND AND CONTROL SPECIALIST-C Work Phone: [facility] 09-21-2024 10:29-0500 Body temperature 98.3 [degF] Loan Dias COMMAND AND CONTROL SPECIALIST-C Work Phone: [facility] 09-21-2024 10:29-0500 Body weight 79.03 kg Loan Dias COMMAND AND CONTROL SPECIALIST-C Work Phone: [facility] 09-21-2024 10:29-0500 Diastolic blood pressure 85 mm[Hg] Loan Dias COMMAND AND CONTROL SPECIALIST-C Work Phone: [facility] 09-21-2024 10:29-0500 Heart rate 77 /min Loan Dias COMMAND AND CONTROL SPECIALIST-C Work Phone: [facility] 09-21-2024 10:29-0500 Respiratory rate 18 /min Loan Dias COMMAND AND CONTROL SPECIALIST-C Work Phone: [facility] 09-21-2024 10:29-0500 SaO2% (BldA) [Mass fraction] 98 % Loan Dias COMMAND AND CONTROL SPECIALIST-C Work Phone: [facility] 09-21-2024 10:29-0500 Systolic blood pressure 124 mm[Hg] Loan Dias COMMAND AND CONTROL SPECIALIST-C Work Phone: [facility] 09-10-2024 15:00-0500 Diastolic blood pressure 71 mm[Hg] Smith Lopez MD Work Phone: [facility] 09-10-2024 15:00-0500 Systolic blood pressure 121 mm[Hg] Smith Lopez MD Work Phone: [facility] 09-10-2024 14:30-0500 Heart rate 88 /min Smith Lopez MD Work Phone: [facility] 09-10-2024 14:30-0500 Respiratory rate 28 /min Smith Lopez MD Work Phone: [facility] 09-10-2024 14:30-0500 SaO2% (BldA) [Mass fraction] 97 % Smith Lopez MD Work Phone: [facility] 08-31-2024 09:07-0500 Body mass index (BMI) [Ratio] 33.5 kg/m2 Loan Dias COMMAND AND CONTROL SPECIALIST-C Work Phone: [facility] 08-31-2024 09:07-0500 Body weight 80.45 kg Loan Dias COMMAND AND CONTROL SPECIALIST-C Work Phone: [facility] 07-27-2024 10:20-0500 Body height 154.9 cm Ling Mikula [employer] Work Phone: [facility] 07-27-2024 10:20-0500 Body mass index (BMI) [Ratio] 32.12 kg/m2 Ling Mikula [employer] Work Phone: [facility] 07-27-2024 10:20-0500 Body weight 77.11 kg Ling Mikula [employer] Work Phone: [facility] 07-27-2024 10:20-0500 Diastolic blood pressure 72 mm[Hg] Ling Mikula [employer] Work Phone: [facility] 07-27-2024 10:20-0500 Heart rate 81 /min Ling Mikula [employer] Work Phone: [facility] 07-27-2024 10:20-0500 Systolic blood pressure 125 mm[Hg] Ling Mikula [employer] Work Phone: [facility] 06-24-2024 10:09-0500 Body height 154.9 cm Smith Lopez MD Work Phone: [facility] 06-24-2024 10:09-0500 Body mass index (BMI) [Ratio] 32.69 kg/m2 Smith Lopez MD Work Phone: [facility] 06-24-2024 10:09-0500 Body weight 78.47 kg Smith Lopez MD Work Phone: [facility] 06-24-2024 10:09-0500 Diastolic blood pressure 80 mm[Hg] Smith Lopez MD Work Phone: [facility] 06-24-2024 10:09-0500 Heart rate 92 /min Smith Lopez MD Work Phone: [facility] 06-24-2024 10:09-0500 Respiratory rate 18 /min Smith Lopez MD Work Phone: [facility] 06-24-2024 10:09-0500 SaO2% (BldA) [Mass fraction] 98 % Smith Lopez MD Work Phone: [facility] 06-24-2024 10:09-0500 Systolic blood pressure 120 mm[Hg] Smith Lopez MD Work Phone: [facility] 06-09-2024 13:23-0400 Body height 154.9 cm Ling Mikula [employer] Work Phone: [facility] 06-09-2024 13:23-0400 Body mass index (BMI) [Ratio] 31.74 kg/m2 Ling Mikula [employer] Work Phone: [facility] 06-09-2024 13:23-0400 Body weight 76.2 kg Ling Mikula [employer] Work Phone: [facility] 06-09-2024 13:23-0400 Diastolic blood pressure 88 mm[Hg] Ling Mikula [employer] Work Phone: [facility] 06-09-2024 13:23-0400 Heart rate 82 /min Ling Mikula [employer] Work Phone: [facility] 06-09-2024 13:23-0400 Systolic blood pressure 150 mm[Hg] Ling Mikula [employer] Work Phone: [facility] 12-21-2023 10:27-0400 Body height 154.94 cm KEYA Dias COMMAND AND CONTROL SPECIALIST Work Phone: [facility] 12-21-2023 10:27-0400 Body mass index (BMI) [Ratio] 33.8 kg/m2 KEYA Dias COMMAND AND CONTROL SPECIALIST Work Phone: [facility] 12-21-2023 10:27-0400 Body temperature 96.9 [degF] KEYA Dias COMMAND AND CONTROL SPECIALIST Work Phone: [phone](781)[phone] [place] [address] 12-21-2023 10:27-0400 Body weight 81.19 kg COMMAND AND CONTROL SPECIALIST-C Loan Dias COMMAND AND CONTROL SPECIALIST Work Phone: [facility] 12-21-2023 10:27-0400 Diastolic blood pressure 85 mm[Hg] COMMAND AND CONTROL SPECIALIST-C Laon Dias COMMAND AND CONTROL SPECIALIST Work Phone: [facility] 12-21-2023 10:27-0400 Heart rate 60 /min COMMAND AND CONTROL SPECIALIST-C Loan Dias COMMAND AND CONTROL SPECIALIST Work Phone: [facility] 12-21-2023 10:27-0400 Respiratory rate 14 /min COMMAND AND CONTROL SPECIALIST-C Loan Dias COMMAND AND CONTROL SPECIALIST Work Phone: [phone] [place] [address] 12-21-2023 10:27-0400 SaO2% (BldA) [Mass fraction] 97 % COMMAND AND CONTROL SPECIALIST-C Loan Dias COMMAND AND CONTROL SPECIALIST Work Phone: 2(030)[phone] [place] [address] 12-21-2023 10:27-0400 Systolic blood pressure 107 mm[Hg] COMMAND AND CONTROL SPECIALIST-C Loan Dias COMMAND AND CONTROL SPECIALIST Work Phone: [phone] [place] [address] 12-12-2023 15:09-0400 Body temperature 98.1 [degF] COMMAND AND CONTROL SPECIALIST-C Loan Dias COMMAND AND CONTROL SPECIALIST Work Phone: [facility] 12-12-2023 15:09-0400 Diastolic blood pressure 74 mm[Hg] COMMAND AND CONTROL SPECIALIST-C Loan Dias COMMAND AND CONTROL SPECIALIST Work Phone: [phone] [place] [address] 12-12-2023 15:09-0400 Heart rate 82 /min COMMAND AND CONTROL SPECIALIST-C Loan Dias COMMAND AND CONTROL SPECIALIST Work Phone: [facility] 12-12-2023 15:09-0400 Respiratory rate 16 /min COMMAND AND CONTROL SPECIALIST-C Loan Dias COMMAND AND CONTROL SPECIALIST Work Phone: [phone](385)[phone] [place] [address] 12-12-2023 15:09-0400 SaO2% (BldA) [Mass fraction] 99 % COMMAND AND CONTROL SPECIALIST-C Loan Dias COMMAND AND CONTROL SPECIALIST Work Phone: [facility] 12-12-2023 15:09-0400 Systolic blood pressure 138 mm[Hg] COMMAND AND CONTROL SPECIALIST-C Loan Dias COMMAND AND CONTROL SPECIALIST Work Phone: [facility] 12-12-2023 12:25-0400 Body height 154.94 cm COMMAND AND CONTROL SPECIALIST-C Loan Dias COMMAND AND CONTROL SPECIALIST Work Phone: [facility] 12-12-2023 12:25-0400 Body mass index (BMI) [Ratio] 34.2 kg/m2 COMMAND AND CONTROL SPECIALIST-C Loan Dias COMMAND AND CONTROL SPECIALIST Work Phone: [facility] 12-12-2023 12:25-0400 Body weight 82.29 kg COMMAND AND CONTROL SPECIALIST-C Loan Dias COMMAND AND CONTROL SPECIALIST Work Phone: [facility] 12-03-2023 16:05-0400 Body temperature 98.3 [degF] COMMAND AND CONTROL SPECIALIST-C Loan Dias COMMAND AND CONTROL SPECIALIST Work Phone: [facility] 12-03-2023 16:05-0400 Diastolic blood pressure 75 mm[Hg] COMMAND AND CONTROL SPECIALIST-C Loan Dias COMMAND AND CONTROL SPECIALIST Work Phone: [facility] 12-03-2023 16:05-0400 Heart rate 70 /min COMMAND AND CONTROL SPECIALIST-C Loan Dias COMMAND AND CONTROL SPECIALIST Work Phone: [facility] 12-03-2023 16:05-0400 Respiratory rate 16 /min COMMAND AND CONTROL SPECIALIST-C Loan Dias COMMAND AND CONTROL SPECIALIST Work Phone: [facility] 12-03-2023 16:05-0400 SaO2% (BldA) [Mass fraction] 96 % COMMAND AND CONTROL SPECIALIST-C Loan Dias COMMAND AND CONTROL SPECIALIST Work Phone: [facility] 12-03-2023 16:05-0400 Systolic blood pressure 132 mm[Hg] COMMAND AND CONTROL SPECIALIST-C Loan Dias COMMAND AND CONTROL SPECIALIST Work Phone: [facility] 12-03-2023 14:30-0400 Inhaled oxygen flow rate 1 L/min COMMAND AND CONTROL SPECIALIST-C Loan Dias COMMAND AND CONTROL SPECIALIST Work Phone: [facility] 12-03-2023 09:37-0400 Body height 154.94 cm COMMAND AND CONTROL SPECIALIST-C Loan Dias COMMAND AND CONTROL SPECIALIST Work Phone: [facility] 12-03-2023 09:37-0400 Body mass index (BMI) [Ratio] 34.3 kg/m2 COMMAND AND CONTROL SPECIALIST-C Loan Dias COMMAND AND CONTROL SPECIALIST Work Phone: [facility] 12-03-2023 09:37-0400 Body weight 82.5 kg COMMAND AND CONTROL SPECIALIST-C Loan Dias COMMAND AND CONTROL SPECIALIST Work Phone: [facility] 11-04-2023 11:12-0400 Body height 154.94 cm COMMAND AND CONTROL SPECIALIST-C Loan Dias COMMAND AND CONTROL SPECIALIST Work Phone: [facility] 11-04-2023 11:12-0400 Body mass index (BMI) [Ratio] 35.3 kg/m2 COMMAND AND CONTROL SPECIALIST-C Loan Dias COMMAND AND CONTROL SPECIALIST Work Phone: [facility] 11-04-2023 11:12-0400 Body weight 84.82 kg COMMAND AND CONTROL SPECIALIST-C Loan Dias COMMAND AND CONTROL SPECIALIST Work Phone: [facility] 11-04-2023 11:12-0400 Diastolic blood pressure 77 mm[Hg] COMMAND AND CONTROL SPECIALIST-C Loan Dias COMMAND AND CONTROL SPECIALIST Work Phone: [facility] 11-04-2023 11:12-0400 Heart rate 76 /min COMMAND AND CONTROL SPECIALIST-C Loan Dais COMMAND AND CONTROL SPECIALIST Work Phone: [facility] 11-04-2023 11:12-0400 Respiratory rate 18 /min COMMAND AND CONTROL SPECIALIST-C Loan Dias COMMAND AND CONTROL SPECIALIST Work Phone: [facility] 11-04-2023 11:12-0400 SaO2% (BldA) [Mass fraction] 100 % COMMAND AND CONTROL SPECIALIST-C Loan Dias COMMAND AND CONTROL SPECIALIST Work Phone: [facility] 11-04-2023 11:12-0400 Systolic blood pressure 115 mm[Hg] COMMAND AND CONTROL SPECIALIST-C Loan Dias COMMAND AND CONTROL SPECIALIST Work Phone: [facility] 11-04-2023 08:58-0400 Body mass index (BMI) [Ratio] 35.3 kg/m2 COMMAND AND CONTROL SPECIALIST-C Loan Dias COMMAND AND CONTROL SPECIALIST Work Phone: [facility] 11-04-2023 08:58-0400 Body temperature 97.6 [degF] COMMAND AND CONTROL SPECIALIST-C Loan Dias COMMAND AND CONTROL SPECIALIST Work Phone: [facility] 11-04-2023 08:58-0400 Body weight 84.85 kg COMMAND AND CONTROL SPECIALIST-C Loan Dias COMMAND AND CONTROL SPECIALIST Work Phone: [facility] 11-04-2023 08:58-0400 Diastolic blood pressure 75 mm[Hg] COMMAND AND CONTROL SPECIALIST-C Loan Dias COMMAND AND CONTROL SPECIALIST Work Phone: [facility] 11-04-2023 08:58-0400 Heart rate 83 /min COMMAND AND CONTROL SPECIALIST-C Loan Dias COMMAND AND CONTROL SPECIALIST Work Phone: [facility] 11-04-2023 08:58-0400 Respiratory rate 16 /min COMMAND AND CONTROL SPECIALIST-C Loan Dias COMMAND AND CONTROL SPECIALIST Work Phone: [facility] 11-04-2023 08:58-0400 SaO2% (BldA) [Mass fraction] 97 % COMMAND AND CONTROL SPECIALIST-C Loan Dias COMMAND AND CONTROL SPECIALIST Work Phone: [facility] 11-04-2023 08:58-0400 Systolic blood pressure 110 mm[Hg] COMMAND AND CONTROL SPECIALIST-C Loan Dias COMMAND AND CONTROL SPECIALIST Work Phone: [facility] 10-11-2023 17:46-0500 Body mass index (BMI) [Ratio] 36.2 kg/m2 COMMAND AND CONTROL SPECIALIST-C Loan Dias COMMAND AND CONTROL SPECIALIST Work Phone: [facility] 10-11-2023 17:46-0500 Body temperature 97.5 [degF] COMMAND AND CONTROL SPECIALIST-C Loan Dias COMMAND AND CONTROL SPECIALIST Work Phone: [facility] 10-11-2023 17:46-0500 Body weight 87.08 kg COMMAND AND CONTROL SPECIALIST-C Loan Dias COMMAND AND CONTROL SPECIALIST Work Phone: [facility] 10-11-2023 17:46-0500 Diastolic blood pressure 80 mm[Hg] COMMAND AND CONTROL SPECIALIST-C Loan Dias COMMAND AND CONTROL SPECIALIST Work Phone: [facility] 10-11-2023 17:46-0500 Heart rate 76 /min COMMAND AND CONTROL SPECIALIST-C Loan Dias COMMAND AND CONTROL SPECIALIST Work Phone: [facility] 10-11-2023 17:46-0500 Respiratory rate 18 /min COMMAND AND CONTROL SPECIALIST-C Loan Dias COMMAND AND CONTROL SPECIALIST Work Phone: [facility] 10-11-2023 17:46-0500 SaO2% (BldA) [Mass fraction] 98 % COMMAND AND CONTROL SPECIALIST-C Loan Garciason COMMAND AND CONTROL SPECIALIST Work Phone: [facility] 10-11-2023 17:46-0500 Systolic blood pressure 142 mm[Hg] COMMAND AND CONTROL SPECIALIST-C Loan Dias COMMAND AND CONTROL SPECIALIST Work Phone: [facility] 09-23-2023 10:37-0500 Body height 154.94 cm COMMAND AND CONTROL SPECIALIST-C Loan Dias COMMAND AND CONTROL SPECIALIST Work Phone: [facility] 09-23-2023 10:37-0500 Body mass index (BMI) [Ratio] 36.7 kg/m2 COMMAND AND CONTROL SPECIALIST-C Loan Dias COMMAND AND CONTROL SPECIALIST Work Phone: [facility] 09-23-2023 10:37-0500 Body temperature 99.1 [degF] COMMAND AND CONTROL SPECIALIST-C Loan Garciason COMMAND AND CONTROL SPECIALIST Work Phone: [facility] 09-23-2023 10:37-0500 Body weight 88.11 kg COMMAND AND CONTROL SPECIALIST-C Loan Dias COMMAND AND CONTROL SPECIALIST Work Phone: [facility] 09-23-2023 10:37-0500 Diastolic blood pressure 72 mm[Hg] COMMAND AND CONTROL SPECIALIST-C Loan Garciason COMMAND AND CONTROL SPECIALIST Work Phone: [facility] 09-23-2023 10:37-0500 Heart rate 75 /min COMMAND AND CONTROL SPECIALIST-C Loan Garciason COMMAND AND CONTROL SPECIALIST Work Phone: [facility] 09-23-2023 10:37-0500 Respiratory rate 18 /min COMMAND AND CONTROL SPECIALIST-C Loan Garciason COMMAND AND CONTROL SPECIALIST Work Phone: [facility] 09-23-2023 10:37-0500 SaO2% (BldA) [Mass fraction] 99 % COMMAND AND CONTROL SPECIALIST-C Loan Dias COMMAND AND CONTROL SPECIALIST Work Phone: [facility] 09-23-2023 10:37-0500 Systolic blood pressure 105 mm[Hg] COMMAND AND CONTROL SPECIALIST-C Loan Dias COMMAND AND CONTROL SPECIALIST Work Phone: [facility] 09-09-2023 10:18-0500 Body mass index (BMI) [Ratio] 37.3 kg/m2 COMMAND AND CONTROL SPECIALIST-C Loan Dias COMMAND AND CONTROL SPECIALIST Work Phone: [facility] 09-09-2023 10:18-0500 Body weight 89.58 kg COMMAND AND CONTROL SPECIALIST-C Loan Dias COMMAND AND CONTROL SPECIALIST Work Phone: [facility] 08-06-2023 13:28-0500 Body height 154.94 cm COMMAND AND CONTROL SPECIALIST-C Loan Dias COMMAND AND CONTROL SPECIALIST Work Phone: [facility] 08-06-2023 13:28-0500 Body mass index (BMI) [Ratio] 38.1 kg/m2 COMMAND AND CONTROL SPECIALIST-C Loan Dias COMMAND AND CONTROL SPECIALIST Work Phone: [facility] 08-06-2023 13:28-0500 Body weight 91.62 kg COMMAND AND CONTROL SPECIALIST-C Loan Dias COMMAND AND CONTROL SPECIALIST Work Phone: [facility] 08-06-2023 13:28-0500 Diastolic blood pressure 82 mm[Hg] COMMAND AND CONTROL SPECIALIST-C Loan Dias COMMAND AND CONTROL SPECIALIST Work Phone: [facility] 08-06-2023 13:28-0500 Heart rate 79 /min COMMAND AND CONTROL SPECIALIST-C Loan Dias COMMAND AND CONTROL SPECIALIST Work Phone: [facility] 08-06-2023 13:28-0500 Respiratory rate 18 /min COMMAND AND CONTROL SPECIALIST-C Loan Dias COMMAND AND CONTROL SPECIALIST Work Phone: [facility] 08-06-2023 13:28-0500 SaO2% (BldA) [Mass fraction] 99 % COMMAND AND CONTROL SPECIALIST-C Loan Disa COMMAND AND CONTROL SPECIALIST Work Phone: [facility] 08-06-2023 13:28-0500 Systolic blood pressure 125 mm[Hg] COMMAND AND CONTROL SPECIALIST-C Loan Dias COMMAND AND CONTROL SPECIALIST Work Phone: [facility] 07-29-2023 19:57-0500 Body height 154.94 cm COMMAND AND CONTROL SPECIALIST-C Loan Dias COMMAND AND CONTROL SPECIALIST Work Phone: [facility] 07-29-2023 19:57-0500 Body mass index (BMI) [Ratio] 38.5 kg/m2 COMMAND AND CONTROL SPECIALIST-C Loan Dias COMMAND AND CONTROL SPECIALIST Work Phone: [facility] 07-29-2023 19:57-0500 Body temperature 97.9 [degF] COMMAND AND CONTROL SPECIALIST-C Loan Dias COMMAND AND CONTROL SPECIALIST Work Phone: [phone] [place] [address] 07-29-2023 19:57-0500 Body weight 92.53 kg COMMAND AND CONTROL SPECIALIST-C Loan Dias COMMAND AND CONTROL SPECIALIST Work Phone: 2(872)[phone] [place] [address] 07-29-2023 19:57-0500 Diastolic blood pressure 90 mm[Hg] COMMAND AND CONTROL SPECIALIST-C Loan Dias COMMAND AND CONTROL SPECIALIST Work Phone: 2(073)269-7[address] [place] [address] 07-29-2023 19:57-0500 Heart rate 79 /min COMMAND AND CONTROL SPECIALIST-C Loan Dias COMMAND AND CONTROL SPECIALIST Work Phone: 5(469)[phone] [place] [address] 07-29-2023 19:57-0500 Respiratory rate 18 /min COMMAND AND CONTROL SPECIALIST-C Loan Dias COMMAND AND CONTROL SPECIALIST Work Phone: [facility] 07-29-2023 19:57-0500 SaO2% (BldA) [Mass fraction] 98 % COMMAND AND CONTROL SPECIALIST-C Loan Dias COMMAND AND CONTROL SPECIALIST Work Phone: [facility] 07-29-2023 19:57-0500 Systolic blood pressure 148 mm[Hg] COMMAND AND CONTROL SPECIALIST-C Loan Dias COMMAND AND CONTROL SPECIALIST Work Phone: [facility] 05-27-2023 10:24-0400 Body mass index (BMI) [Ratio] 39.1 kg/m2 COMMAND AND CONTROL SPECIALIST-C Loan Dias COMMAND AND CONTROL SPECIALIST Work Phone: [facility] 05-27-2023 10:24-0400 Body temperature 98.5 [degF] COMMAND AND CONTROL SPECIALIST-C Loan Dias COMMAND AND CONTROL SPECIALIST Work Phone: [facility] 05-27-2023 10:24-0400 Body weight 93.95 kg COMMAND AND CONTROL SPECIALIST-C Loan Dias COMMAND AND CONTROL SPECIALIST Work Phone: [facility] 05-27-2023 10:24-0400 Diastolic blood pressure 85 mm[Hg] COMMAND AND CONTROL SPECIALIST-C Loan Dias COMMAND AND CONTROL SPECIALIST Work Phone: [facility] 05-27-2023 10:24-0400 Heart rate 72 /min COMMAND AND CONTROL SPECIALIST-C Loan Dias COMMAND AND CONTROL SPECIALIST Work Phone: [facility] 05-27-2023 10:24-0400 Respiratory rate 18 /min COMMAND AND CONTROL SPECIALIST-C Loan Dias COMMAND AND CONTROL SPECIALIST Work Phone: [facility] 05-27-2023 10:24-0400 SaO2% (BldA) [Mass fraction] 97 % COMMAND AND CONTROL SPECIALIST-C Loan Dias COMMAND AND CONTROL SPECIALIST Work Phone: [facility] 05-27-2023 10:24-0400 Systolic blood pressure 129 mm[Hg] COMMAND AND CONTROL SPECIALIST-C Loan Dias COMMAND AND CONTROL SPECIALIST Work Phone: [facility] 05-06-2023 08:58-0400 Body mass index (BMI) [Ratio] 38.5 kg/m2 COMMAND AND CONTROL SPECIALIST-C Loan Dias COMMAND AND CONTROL SPECIALIST Work Phone: [facility] 05-06-2023 08:58-0400 Body temperature 97.4 [degF] COMMAND AND CONTROL SPECIALIST-C Loan Dias COMMAND AND CONTROL SPECIALIST Work Phone: [facility] 05-06-2023 08:58-0400 Body weight 92.61 kg COMMAND AND CONTROL SPECIALIST-C Loan Dias COMMAND AND CONTROL SPECIALIST Work Phone: [facility] 05-06-2023 08:58-0400 Diastolic blood pressure 89 mm[Hg] COMMAND AND CONTROL SPECIALIST-C Loan Dias COMMAND AND CONTROL SPECIALIST Work Phone: [facility] 05-06-2023 08:58-0400 Heart rate 72 /min COMMAND AND CONTROL SPECIALIST-C Loan Dias COMMAND AND CONTROL SPECIALIST Work Phone: [facility] 05-06-2023 08:58-0400 Respiratory rate 18 /min COMMAND AND CONTROL SPECIALIST-C Loan Dias COMMAND AND CONTROL SPECIALIST Work Phone: [facility] 05-06-2023 08:58-0400 SaO2% (BldA) [Mass fraction] 98 % COMMAND AND CONTROL SPECIALIST-C Loan Garciason COMMAND AND CONTROL SPECIALIST Work Phone: [facility] 05-06-2023 08:58-0400 Systolic blood pressure 133 mm[Hg] COMMAND AND CONTROL SPECIALIST-C Loan Dias COMMAND AND CONTROL SPECIALIST Work Phone: [facility] 03-06-2023 10:07-0400 Body height 154.94 cm COMMAND AND CONTROL SPECIALIST-C Loan Dias COMMAND AND CONTROL SPECIALIST Work Phone: [facility] 03-06-2023 10:07-0400 Body mass index (BMI) [Ratio] 38.4 kg/m2 COMMAND AND CONTROL SPECIALIST-C Loan Dias COMMAND AND CONTROL SPECIALIST Work Phone: [facility] 03-06-2023 10:07-0400 Body weight 92.19 kg COMMAND AND CONTROL SPECIALIST-C Loan Dias COMMAND AND CONTROL SPECIALIST Work Phone: [facility] 03-06-2023 10:07-0400 Diastolic blood pressure 91 mm[Hg] COMMAND AND CONTROL SPECIALIST-C Loan Garciason COMMAND AND CONTROL SPECIALIST Work Phone: [facility] 03-06-2023 10:07-0400 Heart rate 89 /min COMMAND AND CONTROL SPECIALIST-C Loan Garciason COMMAND AND CONTROL SPECIALIST Work Phone: [facility] 03-06-2023 10:07-0400 Respiratory rate 18 /min COMMAND AND CONTROL SPECIALIST-C Loan Garciason COMMAND AND CONTROL SPECIALIST Work Phone: [facility] 03-06-2023 10:07-0400 SaO2% (BldA) [Mass fraction] 98 % COMMAND AND CONTROL SPECIALIST-C Loan Garciason COMMAND AND CONTROL SPECIALIST Work Phone: [facility] 03-06-2023 10:07-0400 Systolic blood pressure 159 mm[Hg] COMMAND AND CONTROL SPECIALIST-C Loan Garciason COMMAND AND CONTROL SPECIALIST Work Phone: [facility] 02-28-2023 09:32-0400 Body height 154.94 cm COMMAND AND CONTROL SPECIALIST-C Loan Dias COMMAND AND CONTROL SPECIALIST Work Phone: [facility] 02-28-2023 09:32-0400 Body mass index (BMI) [Ratio] 38.7 kg/m2 COMMAND AND CONTROL SPECIALIST-C Loan Dias COMMAND AND CONTROL SPECIALIST Work Phone: [facility] 02-28-2023 09:32-0400 Body temperature 97.4 [degF] COMMAND AND CONTROL SPECIALIST-C Loan Dias COMMAND AND CONTROL SPECIALIST Work Phone: [facility] 02-28-2023 09:32-0400 Body weight 92.98 kg COMMAND AND CONTROL SPECIALIST-C Loan Dias COMMAND AND CONTROL SPECIALIST Work Phone: [facility] 02-28-2023 09:32-0400 Diastolic blood pressure 81 mm[Hg] COMMAND AND CONTROL SPECIALIST-C Loan Dias [employer]IST Work Phone: [facility] 02-28-2023 09:32-0400 Heart rate 84 /min [employer]IST-C Loan Dias [employer] SPECIALIST Work Phone: [facility] 02-28-2023 09:32-0400 Respiratory rate 16 /min [employer] AND [employer] SPECIALIST-C Loan Dias [employer] SPECIALIST Work Phone: [facility] 02-28-2023 09:32-0400 SaO2% (BldA) [Mass fraction] 98 % [employer] SPECIALIST-C Loan Dias [employer] SPECIALIST Work Phone: [facility] 02-28-2023 09:32-0400 Systolic blood pressure 124 mm[Hg] [employer] SPECIALIST-C Loan Dias [employer] AND [employer] SPECIALIST Work Phone: [facility] 02-20-2023 09:32-0400 Body mass index (BMI) [Ratio] 38.7 kg/m2 [employer] SPECIALIST-C Loan Dias [employer] SPECIALIST Work Phone: [facility] 02-20-2023 09:32-0400 Body temperature 98.1 [degF] [employer] SPECIALIST-C Loan Dias [employer] SPECIALIST Work Phone: [facility] 02-20-2023 09:32-0400 Body weight 93.04 kg [employer] AND [employer] SPECIALIST-C Loan Dias [employer] AND [employer] SPECIALIST Work Phone: [facility] 02-20-2023 09:32-0400 Diastolic blood pressure 88 mm[Hg] [employer] SPECIALIST-C Loan Dias [employer] AND [employer] SPECIALIST Work Phone: [facility] 02-20-2023 09:32-0400 Heart rate 91 /min [employer] SPECIALIST-C Loan Garciason [employer] AND [employer] SPECIALIST Work Phone: [facility] 02-20-2023 09:32-0400 Respiratory rate 16 /min [employer] AND [employer] SPECIALIST-C Loan Dias [employer] AND [employer] SPECIALIST Work Phone: [facility] 02-20-2023 09:32-0400 SaO2% (BldA) [Mass fraction] 98 % [employer] SPECIALIST-C Loan Dias [employer] AND [employer]OL SPECIALIST Work Phone: [facility] 02-20-2023 09:32-0400 Systolic blood pressure 141 mm[Hg] [employer] SPECIALIST-C Loan Dias [employer] AND [employer] SPECIALIST Work Phone: [facility] 01-28-2023 10:50-0400 Body mass index (BMI) [Ratio] 38.6 kg/m2 [employer] SPECIALIST-C Loan Dias [employer] SPECIALIST Work Phone: [facility] 01-28-2023 10:50-0400 Body temperature 97.5 [degF] [employer] SPECIALIST-C Loan Dias [employer] AND [employer] SPECIALIST Work Phone: [facility] 01-28-2023 10:50-0400 Body weight 92.7 kg [employer] AND [employer] SPECIALIST-C Loan Dias [employer] AND [employer] SPECIALIST Work Phone: [facility] 01-28-2023 10:50-0400 Diastolic blood pressure 85 mm[Hg] [employer] SPECIALIST-C Loan Garciason [employer] AND [employer]OL SPECIALIST Work Phone: [facility] 01-28-2023 10:50-0400 Heart rate 69 /min [employer] SPECIALIST-C Loan Dias [employer] AND [employer]OL SPECIALIST Work Phone: [facility] 01-28-2023 10:50-0400 Respiratory rate 18 /min [employer] AND [employer] SPECIALIST-C Loan Garciason [employer] AND [employer]OL SPECIALIST Work Phone: [facility] 01-28-2023 10:50-0400 SaO2% (BldA) [Mass fraction] 99 % [employer] AND [employer] SPECIALIST-C Loan Dias [employer] AND [employer]OL SPECIALIST Work Phone: [facility] 01-28-2023 10:50-0400 Systolic blood pressure 148 mm[Hg] [employer] SPECIALIST-C Loan Garciason [employer] AND [employer] SPECIALIST Work Phone: [phone] [place] [address] 12-28-2022 11:50-0400 Body height 154.94 cm [employer] AND [employer] SPECIALIST-C Loan Garciason [employer] AND [employer]OL SPECIALIST Work Phone: [phone] [place] [address] 12-28-2022 11:50-0400 Diastolic blood pressure 90 mm[Hg] [employer] SPECIALIST-C Loan Garciason [employer] AND [employer]OL SPECIALIST Work Phone: [facility] 12-28-2022 11:50-0400 Systolic blood pressure 130 mm[Hg] [employer] AND [employer] SPECIALIST-C Loan Dias [employer] AND [employer]OL SPECIALIST Work Phone: [facility] 12-28-2022 09:41-0400 Body temperature 98.5 [degF] [employer] SPECIALIST-C Loan Dias [employer] AND [employer]OL SPECIALIST Work Phone: [facility] 12-28-2022 09:41-0400 Body weight 92.07 kg [employer] AND [employer] SPECIALIST-C Loan Dias [employer] AND [employer]OL SPECIALIST Work Phone: [facility] 12-28-2022 09:41-0400 Heart rate 90 /min [employer] AND [employer] SPECIALIST-C Loan Dias [employer] AND [employer]OL SPECIALIST Work Phone: [phone] [place] [address] 12-28-2022 09:41-0400 Respiratory rate 18 /min [employer] AND [employer] SPECIALIST-C Loan Garciason [employer] AND CONTROL SPECIALIST Work Phone: [facility] 12-28-2022 09:41-0400 SaO2% (BldA) [Mass fraction] 100 % [employer] AND [employer] SPECIALIST-C Loan Dias [employer] AND [employer]OL SPECIALIST Work Phone: [facility] 11-05-2022 13:04-0400 Body mass index (BMI) [Ratio] 38 kg/m2 [employer] AND [employer] SPECIALIST-C Loan Dias [employer] AND [employer]OL SPECIALIST Work Phone: [phone] [place] [address] 11-05-2022 13:04-0400 Body weight 91.17 kg [employer] AND [employer] SPECIALIST-C Loan Dias [employer] AND [employer]OL SPECIALIST Work Phone: [facility] 11-05-2022 13:04-0400 Diastolic blood pressure 83 mm[Hg] [employer] AND [employer] SPECIALIST-C Loan Dias [employer] AND [employer]OL SPECIALIST Work Phone: [facility] 11-05-2022 13:04-0400 Respiratory rate 16 /min [employer] AND [employer] SPECIALIST-C Loan Dias [employer] AND [employer]OL SPECIALIST Work Phone: [facility] 11-05-2022 13:04-0400 SaO2% (BldA) [Mass fraction] 98 % [employer] AND [employer] SPECIALIST-C Laon Dias [employer] AND [employer]OL SPECIALIST Work Phone: [facility] 11-05-2022 13:04-0400 Systolic blood pressure 128 mm[Hg] [employer] SPECIALIST-C Loan Dias [employer] AND [employer]OL SPECIALIST Work Phone: [facility] 11-01-2022 10:01-0400 Body height 154.94 cm [employer] AND [employer] SPECIALIST-C Loan Dias [employer] AND [employer]OL SPECIALIST Work Phone: [facility] 11-01-2022 10:01-0400 Body mass index (BMI) [Ratio] 35.9 kg/m2 [employer] SPECIALIST-C Loan Dias [employer] AND [employer] SPECIALIST Work Phone: [facility] 11-01-2022 10:01-0400 Body temperature 97.6 [degF] [employer] SPECIALIST-C Loan Dias [employer] AND [employer]OL SPECIALIST Work Phone: [facility] 11-01-2022 10:01-0400 Body weight 86.18 kg [employer] AND [employer] SPECIALIST-C Loan Dias [employer] AND [employer]OL SPECIALIST Work Phone: [facility] 11-01-2022 10:01-0400 Diastolic blood pressure 84 mm[Hg] [employer] AND [employer] SPECIALIST-C Loan Dias [employer] AND [employer]OL SPECIALIST Work Phone: [facility] 11-01-2022 10:01-0400 Heart rate 81 /min [employer] AND [employer] SPECIALIST-C Loan Dias [employer] AND [employer]OL SPECIALIST Work Phone: [facility] 11-01-2022 10:01-0400 Respiratory rate 16 /min [employer] AND [employer] SPECIALIST-C Loan Dias [employer] AND CONTROL SPECIALIST Work Phone: [facility] 11-01-2022 10:01-0400 SaO2% (BldA) [Mass fraction] 97 % [employer] AND [employer] SPECIALIST-C Loan Dias [employer] AND [employer]OL SPECIALIST Work Phone: [facility] 11-01-2022 10:01-0400 Systolic blood pressure 133 mm[Hg] [employer] AND [employer] SPECIALIST-C Loan Dias [employer] AND [employer]OL SPECIALIST Work Phone: [facility] 07-25-2022 10:33-0500 Body mass index (BMI) [Ratio] 37 kg/m2 [employer] AND [employer] SPECIALIST-C Loan Dias [employer] AND [employer]OL SPECIALIST Work Phone: [facility] 07-25-2022 10:33-0500 Body temperature 98.3 [degF] [employer] AND [employer] SPECIALIST-C Loan Dias [employer] AND [employer]OL SPECIALIST Work Phone: [facility] 07-25-2022 10:33-0500 Body weight 88.9 kg [employer] AND [employer] SPECIALIST-C Loan Dias [employer] AND [employer]OL SPECIALIST Work Phone: [facility] 07-25-2022 10:33-0500 Diastolic blood pressure 82 mm[Hg] [employer] AND [employer] SPECIALIST-C Loan Dias [employer] AND [employer]OL SPECIALIST Work Phone: [facility] 07-25-2022 10:33-0500 Heart rate 79 /min [employer] AND [employer]OL SPECIALIST-C Loan Dias [employer] AND [employer]OL SPECIALIST Work Phone: [facility] 07-25-2022 10:33-0500 Respiratory rate 16 /min [employer] AND [employer]OL SPECIALIST-C Loan Dias [employer] AND [employer]OL SPECIALIST Work Phone: [facility] 07-25-2022 10:33-0500 SaO2% (BldA) [Mass fraction] 99 % [employer] AND [employer] SPECIALIST-C Loan Dias [employer] AND [employer]OL SPECIALIST Work Phone: [facility] 07-25-2022 10:33-0500 Systolic blood pressure 122 mm[Hg] [employer] AND [employer] SPECIALIST-C Loan Dias [employer] AND [employer]OL SPECIALIST Work Phone: [facility] 05-21-2022 09:36-0400 Body temperature 97.6 [degF] [employer] AND [employer] SPECIALIST-C Loan Dias [employer] AND [employer]OL SPECIALIST Work Phone: [facility] Work Phone: 05-21-2022 09:36-0400 Diastolic blood pressure 83 mm[Hg] [employer] AND [employer] SPECIALIST-C Loan Dias [employer] AND [employer]OL SPECIALIST Work Phone: [facility] Work Phone: 05-21-2022 09:36-0400 Heart rate 69 /min [employer] AND [employer]OL SPECIALIST-C Loan Dias [employer] AND [employer]OL SPECIALIST Work Phone: [facility] Work Phone: 05-21-2022 09:36-0400 Respiratory rate 16 /min [employer] AND [employer] SPECIALIST-C Loan Dias [employer] AND [employer]OL SPECIALIST Work Phone: [facility] Work Phone: 05-21-2022 09:36-0400 SaO2% (BldA) [Mass fraction] 100 % [employer] AND [employer] SPECIALIST-C Loan Dias [employer] AND [employer]OL SPECIALIST Work Phone: [facility] Work Phone: 05-21-2022 09:36-0400 Systolic blood pressure 130 mm[Hg] [employer] AND [employer]OL SPECIALIST-C Loan Dias COMMAND AND [employer]OL SPECIALIST Work Phone: [facility] Work Phone: 05-21-2022 07:49-0400 Body height 154.94 cm [employer] AND [employer] SPECIALIST-C Loan Dias COMMAND AND [employer]OL SPECIALIST Work Phone: [facility] Work Phone: 05-21-2022 07:49-0400 Body mass index (BMI) [Ratio] 35.6 kg/m2 [employer] AND [employer] SPECIALIST-C Loan Dias [employer] AND [employer]OL SPECIALIST Work Phone: [facility] Work Phone: 05-21-2022 07:49-0400 Body weight 85.54 kg [employer] AND [employer] SPECIALIST-C Loan Dias [employer] AND [employer]OL SPECIALIST Work Phone: [facility] Work Phone: 04-25-2022 11:47-0400 Body mass index (BMI) [Ratio] 34.9 kg/m2 [employer] AND [employer] SPECIALIST-C Loan Dias [employer] AND [employer]OL SPECIALIST Work Phone: [facility] Work Phone: 04-25-2022 11:47-0400 Body weight 83.91 kg [employer] AND [employer] SPECIALIST-C Loan Dias [employer] AND CONTROL SPECIALIST Work Phone: [facility] Work Phone: 04-25-2022 08:30-0400 Body mass index (BMI) [Ratio] 35.6 kg/m2 [employer] AND [employer] SPECIALIST-C Loan Dias [employer] AND [employer]OL SPECIALIST Work Phone: [facility] Work Phone: 04-25-2022 08:30-0400 Body temperature 98 [degF] [employer] AND CONTROL SPECIALIST-C Loan Dias [employer] AND [employer]OL SPECIALIST Work Phone: [facility] Work Phone: 04-25-2022 08:30-0400 Body weight 85.72 kg [employer] AND [employer] SPECIALIST-C Loan Dias [employer] AND [employer]OL SPECIALIST Work Phone: [facility] Work Phone: 04-25-2022 08:30-0400 Diastolic blood pressure 93 mm[Hg] [employer] AND [employer] SPECIALIST-C Loan Dias [employer] AND CONTROL SPECIALIST Work Phone: [facility] Work Phone: 04-25-2022 08:30-0400 Heart rate 71 /min [employer] AND [employer] SPECIALIST-C Loan Dias [employer] AND CONTROL SPECIALIST Work Phone: [facility] Work Phone: 04-25-2022 08:30-0400 Respiratory rate 18 /min [employer] AND [employer]OL SPECIALIST-C Loan Dias [employer] AND CONTROL SPECIALIST Work Phone: [facility] Work Phone: 04-25-2022 08:30-0400 SaO2% (BldA) [Mass fraction] 97 % [employer] AND [employer] SPECIALIST-C Loan Dias [employer] AND CONTROL SPECIALIST Work Phone: [facility] Work Phone: 04-25-2022 08:30-0400 Systolic blood pressure 146 mm[Hg] [employer] AND [employer] SPECIALIST-C Loan Dias [employer] AND [employer]OL SPECIALIST Work Phone: [facility] Work Phone: 02-05-2022 08:38-0400 Body mass index (BMI) [Ratio] 36.3 kg/m2 [employer] AND [employer] SPECIALIST-C Loan Dias [employer] AND [employer] SPECIALIST Work Phone: [facility] Work Phone: 02-05-2022 08:38-0400 Body temperature 97.7 [degF] [employer] AND [employer] SPECIALIST-C Loan Dias [employer] AND [employer]OL SPECIALIST Work Phone: [facility] Work Phone: 02-05-2022 08:38-0400 Body weight 87.17 kg [employer] AND [employer] SPECIALIST-C Loan Dias [employer] AND [employer]OL SPECIALIST Work Phone: [facility] Work Phone: 02-05-2022 08:38-0400 Diastolic blood pressure 86 mm[Hg] [employer] AND [employer] SPECIALIST-C Loan Dias [employer] AND [employer]OL SPECIALIST Work Phone: [facility] Work Phone: 02-05-2022 08:38-0400 Heart rate 70 /min [employer] AND [employer]OL SPECIALIST-C Loan Dias [employer] AND [employer]OL SPECIALIST Work Phone: [facility] Work Phone: 02-05-2022 08:38-0400 Respiratory rate 16 /min [employer] AND [employer] SPECIALIST-C Loan Dias [employer] AND [employer]OL SPECIALIST Work Phone: [facility] Work Phone: 02-05-2022 08:38-0400 SaO2% (BldA) [Mass fraction] 100 % [employer] AND [employer] SPECIALIST-C Loan Dias [employer] AND [employer]OL SPECIALIST Work Phone: [facility] Work Phone: 02-05-2022 08:38-0400 Systolic blood pressure 138 mm[Hg] [employer] AND [employer] SPECIALIST-C Loan Dias [employer] AND [employer]OL SPECIALIST Work Phone: [facility] Work Phone: 01-29-2022 08:42-0400 Body mass index (BMI) [Ratio] 36.1 kg/m2 [employer] SPECIALIST-C Loan Dias [employer] AND [employer]OL SPECIALIST Work Phone: [facility] Work Phone: 01-29-2022 08:42-0400 Body weight 86.63 kg [employer] AND [employer] SPECIALIST-C Loan Dias [employer] AND [employer]OL SPECIALIST Work Phone: [facility] Work Phone: 01-25-2022 19:55-0400 Body mass index (BMI) [Ratio] 35.9 kg/m2 [employer] AND [employer] SPECIALIST-C Loan Dias [employer] AND [employer] SPECIALIST Work Phone: [facility] Work Phone: 01-25-2022 19:55-0400 Body temperature 97.7 [degF] [employer] AND [employer] SPECIALIST-C Loan Dias [employer] AND [employer]OL SPECIALIST Work Phone: [facility] Work Phone: 01-25-2022 19:55-0400 Body weight 86.18 kg [employer] AND [employer]OL SPECIALIST-C Loan Dias [employer] AND [employer]OL SPECIALIST Work Phone: [facility] Work Phone: 01-25-2022 19:55-0400 Diastolic blood pressure 70 mm[Hg] [employer] AND [employer] SPECIALIST-C Loan Dias [employer] AND [employer]OL SPECIALIST Work Phone: [facility] Work Phone: 01-25-2022 19:55-0400 Heart rate 118 /min [employer] AND [employer] SPECIALIST-C Loan Dias [employer] AND [employer]OL SPECIALIST Work Phone: [facility] Work Phone: 01-25-2022 19:55-0400 Respiratory rate 18 /min [employer] AND [employer] SPECIALIST-C Loan Dias [employer] AND [employer]OL SPECIALIST Work Phone: [facility] Work Phone: 01-25-2022 19:55-0400 SaO2% (BldA) [Mass fraction] 99 % [employer] AND [employer] SPECIALIST-C Loan Dias [employer] AND [employer]OL SPECIALIST Work Phone: [facility] Work Phone: 01-25-2022 19:55-0400 Systolic blood pressure 120 mm[Hg] [employer] AND [employer] SPECIALIST-C Loan Dias [employer] AND [employer]OL SPECIALIST Work Phone: [facility] Work Phone: 01-24-2022 12:54-0400 Body mass index (BMI) [Ratio] 35.9 kg/m2 [employer] AND [employer] SPECIALIST-C Loan Garciason [employer] AND [employer] SPECIALIST Work Phone: [facility] Work Phone: 01-24-2022 12:54-0400 Body temperature 97.8 [degF] [employer] AND [employer] SPECIALIST-C Loan Dias [employer] AND [employer]OL SPECIALIST Work Phone: [facility] Work Phone: 01-24-2022 12:54-0400 Body weight 86.18 kg [employer] AND [employer] SPECIALIST-C Loan Dias [employer] AND [employer]OL SPECIALIST Work Phone: [facility] Work Phone: 01-24-2022 12:54-0400 Diastolic blood pressure 86 mm[Hg] [employer] AND [employer] SPECIALIST-C Loan Dias [employer] AND [employer]OL SPECIALIST Work Phone: [facility] Work Phone: 01-24-2022 12:54-0400 Heart rate 81 /min [employer] AND [employer]OL SPECIALIST-C Loan Dias [employer] AND [employer]OL SPECIALIST Work Phone: [facility] Work Phone: 01-24-2022 12:54-0400 Respiratory rate 15 /min [employer] AND [employer]OL SPECIALIST-C Loan Dias [employer] AND CONTROL SPECIALIST Work Phone: [facility] Work Phone: 01-24-2022 12:54-0400 SaO2% (BldA) [Mass fraction] 96 % [employer] AND [employer] SPECIALIST-C Loan Garciason [employer] AND CONTROL SPECIALIST Work Phone: [facility] Work Phone: 01-24-2022 12:54-0400 Systolic blood pressure 122 mm[Hg] [employer] AND [employer] SPECIALIST-C Loan Dias [employer] AND [employer] SPECIALIST Work Phone: [facility] Work Phone: 01-23-2022 14:42-0400 Body mass index (BMI) [Ratio] 36.6 kg/m2 [employer] AND [employer] SPECIALIST-C Loan Dias [employer] AND [employer]OL SPECIALIST Work Phone: [facility] Work Phone: 01-23-2022 14:42-0400 Body temperature 97.7 [degF] [employer] AND [employer] SPECIALIST-C Loan Dias [employer] AND [employer]OL SPECIALIST Work Phone: [facility] Work Phone: 01-23-2022 14:42-0400 Body weight 87.99 kg [employer] AND [employer] SPECIALIST-C Loan Dias [employer] AND [employer]OL SPECIALIST Work Phone: [facility] Work Phone: 01-23-2022 14:42-0400 Diastolic blood pressure 84 mm[Hg] [employer] AND [employer] SPECIALIST-C Loan Dias [employer] AND [employer]OL SPECIALIST Work Phone: [facility] Work Phone: 01-23-2022 14:42-0400 Heart rate 90 /min [employer] AND [employer] SPECIALIST-C Loan Dias [employer] AND [employer]OL SPECIALIST Work Phone: [facility] Work Phone: 01-23-2022 14:42-0400 Respiratory rate 18 /min [employer] AND [employer] SPECIALIST-C Loan Dias [employer] AND [employer]OL SPECIALIST Work Phone: [facility] Work Phone: 01-23-2022 14:42-0400 SaO2% (BldA) [Mass fraction] 97 % [employer] AND [employer] SPECIALIST-C Loan Dias [employer] AND [employer]OL SPECIALIST Work Phone: [facility] Work Phone: 01-23-2022 14:42-0400 Systolic blood pressure 160 mm[Hg] [employer] AND [employer]OL SPECIALIST-C Loan Dias [employer] AND [employer]OL SPECIALIST Work Phone: [facility] Work Phone: 01-21-2022 14:33-0400 Diastolic blood pressure 86 mm[Hg] [employer] AND [employer] SPECIALIST-C Loan Dias [employer] AND [employer]OL SPECIALIST Work Phone: [facility] Work Phone: 01-21-2022 14:33-0400 Systolic blood pressure 168 mm[Hg] [employer] AND [employer]OL SPECIALIST-C Loan Dias [employer] AND [employer]OL SPECIALIST Work Phone: [facility] Work Phone: 01-21-2022 13:00-0400 Heart rate 74 /min [employer] AND [employer] SPECIALIST-C Loan Garciason [employer] AND [employer]OL SPECIALIST Work Phone: [facility] Work Phone: 01-21-2022 13:00-0400 Respiratory rate 21 /min [employer] AND [employer] SPECIALIST-C Loan Dias [employer] AND CONTROL SPECIALIST Work Phone: [facility] Work Phone: 01-21-2022 13:00-0400 SaO2% (BldA) [Mass fraction] 98 % [employer] AND [employer] SPECIALIST-C Loan Dias [employer] AND [employer]OL SPECIALIST Work Phone: [facility] Work Phone: 01-21-2022 10:47-0400 Body height 154.94 cm [employer] AND [employer] SPECIALIST-C Loan Dias [employer] AND [employer]OL SPECIALIST Work Phone: [facility] Work Phone: 01-21-2022 10:47-0400 Body mass index (BMI) [Ratio] 34.9 kg/m2 [employer] AND [employer] SPECIALIST-C Loan Dias [employer] AND CONTROL SPECIALIST Work Phone: [facility] Work Phone: 01-21-2022 10:47-0400 Body temperature 97.6 [degF] [employer] AND [employer] SPECIALIST-C Loan Dias [employer] AND [employer]OL SPECIALIST Work Phone: [facility] Work Phone: 01-21-2022 10:47-0400 Body weight 83.91 kg [employer] AND [employer] SPECIALIST-C Loan Arun [employer] AND CONTROL SPECIALIST Work Phone: [facility] Work Phone: 01-12-2022 08:25-0400 Body mass index (BMI) [Ratio] 36.2 kg/m2 [employer] AND [employer] SPECIALIST-C Loan Dias [employer] AND [employer] SPECIALIST Work Phone: [facility] Work Phone: 01-12-2022 08:25-0400 Body weight 87.08 kg [employer] AND [employer] SPECIALIST-C Loan Dias [employer] AND CONTROL SPECIALIST Work Phone: [facility] Work Phone: 01-12-2022 08:25-0400 Diastolic blood pressure 86 mm[Hg] [employer] AND [employer] SPECIALIST-C Loan Dias [employer] AND [employer]OL SPECIALIST Work Phone: [facility] Work Phone: 01-12-2022 08:25-0400 Heart rate 98 /min [employer] AND [employer] SPECIALIST-C Loan Dias [employer] AND [employer]OL SPECIALIST Work Phone: [facility] Work Phone: 01-12-2022 08:25-0400 Respiratory rate 16 /min [employer] AND [employer] SPECIALIST-C Loan Dias [employer] AND CONTR[employer] SPECIALIST Work Phone: [facility] Work Phone: 01-12-2022 08:25-0400 SaO2% (BldA) [Mass fraction] 99 % [employer] AND [employer] SPECIALIST-C Loan Dias [employer] AND CONTROL SPECIALIST Work Phone: [facility] Work Phone: 01-12-2022 08:25-0400 Systolic blood pressure 125 mm[Hg] [employer] AND [employer] SPECIALIST-C Loan Dias [employer] AND [employer]OL SPECIALIST Work Phone: [facility] Work Phone: 01-01-2022 16:02-0400 Body mass index (BMI) [Ratio] 36.4 kg/m2 [employer] SPECIALIST-C Loan Dias [employer] AND [employer] SPECIALIST Work Phone: [facility] Work Phone: 01-01-2022 16:02-0400 Body temperature 97.7 [degF] [employer] AND CONTROL SPECIALIST-C Loan Dias [employer] AND CONTROL SPECIALIST Work Phone: [facility] Work Phone: 01-01-2022 16:02-0400 Body weight 87.54 kg [employer] AND [employer] SPECIALIST-C Loan Dias [employer] AND CONTROL SPECIALIST Work Phone: [facility] Work Phone: 01-01-2022 16:02-0400 Diastolic blood pressure 60 mm[Hg] [employer] AND [employer] SPECIALIST-C Loan Dias [employer] AND [employer]OL SPECIALIST Work Phone: [facility] Work Phone: 01-01-2022 16:02-0400 Heart rate 98 /min [employer] AND [employer] SPECIALIST-C Loan Dias [employer] AND [employer]OL SPECIALIST Work Phone: [facility] Work Phone: 01-01-2022 16:02-0400 Respiratory rate 18 /min [employer] AND [employer] SPECIALIST-C Loan Dias [employer] AND CONTROL SPECIALIST Work Phone: [facility] Work Phone: 01-01-2022 16:02-0400 SaO2% (BldA) [Mass fraction] 97 % [employer] AND [employer] SPECIALIST-C Loan Dias [employer] AND CONTROL SPECIALIST Work Phone: [facility] Work Phone: 01-01-2022 16:02-0400 Systolic blood pressure 130 mm[Hg] [employer] AND [employer] SPECIALIST-C Loan Dias [employer] AND [employer]OL SPECIALIST Work Phone: [facility] Work Phone: 12-01-2021 08:40-0400 Body mass index (BMI) [Ratio] 36.1 kg/m2 [employer] AND [employer] SPECIALIST-C Loan Dias [employer] AND [employer] SPECIALIST Work Phone: [facility] Work Phone: 12-01-2021 08:40-0400 Body temperature 97.6 [degF] [employer] AND [employer] SPECIALIST-C Loan Dias [employer] AND [employer]OL SPECIALIST Work Phone: [facility] Work Phone: 12-01-2021 08:40-0400 Body weight 86.74 kg [employer] AND [employer] SPECIALIST-C Loan Dias [employer] AND [employer] SPECIALIST Work Phone: [facility] Work Phone: 12-01-2021 08:40-0400 Diastolic blood pressure 88 mm[Hg] [employer] AND [employer] SPECIALIST-C Loan Dias [employer] AND [employer]OL SPECIALIST Work Phone: [facility] Work Phone: 12-01-2021 08:40-0400 Heart rate 83 /min [employer] AND [employer] SPECIALIST-C Loan Dias [employer] AND [employer] SPECIALIST Work Phone: [facility] Work Phone: 12-01-2021 08:40-0400 Respiratory rate 17 /min [employer] AND [employer] SPECIALIST-C Loan Dias [employer] SPECIALIST Work Phone: [facility] Work Phone: 12-01-2021 08:40-0400 SaO2% (BldA) [Mass fraction] 98 % COMMAND AND CONTROL SPECIALIST-C Loan Dias COMMAND AND CONTROL SPECIALIST Work Phone: [facility] Work Phone: 12-01-2021 08:40-0400 Systolic blood pressure 150 mm[Hg] COMMAND AND CONTROL SPECIALIST-C Loan Dias COMMAND AND CONTROL SPECIALIST Work Phone: [facility] Work Phone: 10-26-2021 08:23-0500 Body temperature 98.1 [degF] COMMAND AND CONTROL SPECIALIST-C Loan Dias COMMAND AND CONTROL SPECIALIST Work Phone: [facility] Work Phone: 10-26-2021 08:23-0500 Body weight 87.54 kg COMMAND AND CONTROL SPECIALIST-C Loan Dias COMMAND AND CONTROL SPECIALIST Work Phone: [facility] Work Phone: 10-26-2021 08:23-0500 Diastolic blood pressure 85 mm[Hg] COMMAND AND CONTROL SPECIALIST-C Loan Dias COMMAND AND CONTROL SPECIALIST Work Phone: [facility] Work Phone: 10-26-2021 08:23-0500 Heart rate 95 /min COMMAND AND CONTROL SPECIALIST-C Loan Dias COMMAND AND CONTROL SPECIALIST Work Phone: [facility] Work Phone: 10-26-2021 08:23-0500 Respiratory rate 14 /min COMMAND AND CONTROL SPECIALIST-C Loan Garciason COMMAND AND CONTROL SPECIALIST Work Phone: [facility] Work Phone: 10-26-2021 08:23-0500 SaO2% (BldA) [Mass fraction] 99 % COMMAND AND CONTROL SPECIALIST-C Loan Dias COMMAND AND CONTROL SPECIALIST Work Phone: [facility] Work Phone: 10-26-2021 08:23-0500 Systolic blood pressure 140 mm[Hg] COMMAND AND CONTROL SPECIALIST-C Loan Dias COMMAND AND CONTROL SPECIALIST Work Phone: [facility] Work Phone: 10-18-2021 09:55-0500 Body mass index (BMI) [Ratio] 36.7 kg/m2 COMMAND AND CONTROL SPECIALIST-C Loan Dias COMMAND AND CONTROL SPECIALIST Work Phone: [facility] Work Phone: 10-18-2021 09:55-0500 Body temperature 98.1 [degF] COMMAND AND CONTROL SPECIALIST-C Loan Dias COMMAND AND CONTROL SPECIALIST Work Phone: [facility] Work Phone: 10-18-2021 09:55-0500 Body weight 88.11 kg COMMAND AND CONTROL SPECIALIST-C Loan Dias COMMAND AND CONTROL SPECIALIST Work Phone: [facility] Work Phone: 10-18-2021 09:55-0500 Diastolic blood pressure 96 mm[Hg] COMMAND AND CONTROL SPECIALIST-C Loan Dias COMMAND AND CONTROL SPECIALIST Work Phone: [facility] Work Phone: 10-18-2021 09:55-0500 Heart rate 80 /min COMMAND AND CONTROL SPECIALIST-C Loan Dias COMMAND AND CONTROL SPECIALIST Work Phone: [facility] Work Phone: 10-18-2021 09:55-0500 Respiratory rate 16 /min COMMAND AND CONTROL SPECIALIST-C Loan Dias COMMAND AND CONTROL SPECIALIST Work Phone: [facility] Work Phone: 10-18-2021 09:55-0500 SaO2% (BldA) [Mass fraction] 98 % COMMAND AND CONTROL SPECIALIST-C Loan Dias COMMAND AND CONTROL SPECIALIST Work Phone: [facility] Work Phone: 10-18-2021 09:55-0500 Systolic blood pressure 144 mm[Hg] COMMAND AND CONTROL SPECIALIST-C Loan Dias COMMAND AND CONTROL SPECIALIST Work Phone: [facility] Work Phone: 03-29-2021 13:14-0400 Diastolic blood pressure 91 mm[Hg] COMMAND AND CONTROL SPECIALIST-C Loan Dias COMMAND AND CONTROL SPECIALIST Work Phone: [facility] 03-29-2021 13:14-0400 Heart rate 82 /min COMMAND AND CONTROL SPECIALIST-C Loan Dias COMMAND AND CONTROL SPECIALIST Work Phone: [facility] 03-29-2021 13:14-0400 Respiratory rate 16 /min COMMAND AND CONTROL SPECIALIST-C Loan Dias COMMAND AND CONTROL SPECIALIST Work Phone: [facility] 03-29-2021 13:14-0400 SaO2% (BldA) [Mass fraction] 94 % COMMAND AND CONTROL SPECIALIST-C Loan Dias COMMAND AND CONTROL SPECIALIST Work Phone: [facility] 03-29-2021 13:14-0400 Systolic blood pressure 141 mm[Hg] COMMAND AND CONTROL SPECIALIST-C Loan Dias COMMAND AND CONTROL SPECIALIST Work Phone: [facility] 03-29-2021 10:04-0400 Body mass index (BMI) [Ratio] 35.1 kg/m2 COMMAND AND CONTROL SPECIALIST-C Loan Dias COMMAND AND CONTROL SPECIALIST Work Phone: [facility] 03-29-2021 10:04-0400 Body weight 89.98 kg COMMAND AND CONTROL SPECIALIST-C Loan Dias COMMAND AND CONTROL SPECIALIST Work Phone: [facility] 03-08-2021 13:07-0400 Body temperature 96.8 [degF] COMMAND AND CONTROL SPECIALIST-C Loan Dias COMMAND AND CONTROL SPECIALIST Work Phone: [facility] Encounters Encounter Date Encounter Type Care Provider Facility Start: 07-09-2025 ambulatory Loan Dias COMMAND AND CONTROL SPECIALIST Faci lity:[facility] Start: 07-01-2025 ambulatory Loan Dias COMMAND AND CONTROL SPECIALIST Faci lity:[facility] Start: 06-25-2025 End: 06-25-2025 ambulatory Loan Dias COMMAND AND CONTROL SPECIALIST Facility[place] Start: 06-24-2025 End: 06-24-2025 ambulatory Loan Dias COMMAND AND CONTROL SPECIALIST Facility:[facility] Start: 06-22-2025 End: 06-22-2025 ambulatory Loan Dias COMMAND AND CONTROL SPECIALIST Facility:[facility] Start: 06-15-2025 End: 06-15-2025 ambulatory Loan Dias COMMAND AND CONTROL SPECIALIST Facility:[facility] Start: 06-09-[address] Donell Escalante MD -[facility] Start: 06-09-2025 End: 06-09-2025 Patient encounter procedure Verónica Lopez COMMAND AND CONTROL SPECIALIST-C -[facility] Work Phone: Start: 06-09-2025 End: 06-09-2025 ambulatory Verónica John COMMAND AND CONTROL SPECIALIST Facility:[facility] Start: 06-03-2025 End: 06-03-2025 Patient encounter procedure Radha Tan COMMAND AND CONTROL SPECIALIST-C -[facility] Work Phone: Start: 06-03-2025 End: 06-03-2025 ambulatory Loanaruna Dias COMMAND AND CONTROL SPECIALIST-C Work Phone: -[facility] Start: 05-24-2025 End: 05-24-2025 ambulatory Loan Dias COMMAND AND CONTROL SPECIALIST-C Work Phone: -[facility] Start: 05-24-2025 End: 05-24-[address] Nico Hook MD -[facility] Work Phone: Start: 05-12-2025 End: 05-12-2025 ambulatory LOAN DIAS Facility:[facility] Start: 05-11-2025 ambulatory Loan Dias COMMAND AND CONTROL SPECIALIST Faci lity:[facility] Start: 05-11-2025 Non-patient / Non-visit Dr. Gustavo LEIVA -[facility] Start: 05-11-2025 End: 05-11-2025 Patient encounter procedure Ashli oRsado PA -[facility] Work Phone: Start: 05-11-2025 End: 05-11-2025 ambulatory Loan Dias COMMAND AND CONTROL SPECIALIST Facility:[facility] Start: 04-24-2025 End: 04-24-2025 ambulatory Loanaruna GarciaDias COMMAND AND CONTROL SPECIALIST-C Work Phone: -[facility] Start: 04-24-2025 End: 04-24-[address] Nico Hook MD -[facility] Work Phone: Start: 04-08-2025 End: 04-08-2025 Patient encounter procedure Radha Tan NP-C -[facility] Work Phone: Start: 04-08-2025 End: 04-08-2025 ambulatory Loan Dias COMMAND AND CONTROL SPECIALIST-C Work Phone: -[facility] Start: 04-07-2025 End: 04-07-2025 Patient encounter procedure Jarred Suh DPM Work Phone: [facility] Comment on above: Plantar fasciitis of right foot (Primary Dx); Equinus contracture of right ankle Start: 04-07-2025 End: 04-07-2025 ambulatory LOAN DIAS Facility:[facility] Start: 04-04-2025 End: 04-04-2025 Emergency department patient visit oLan Dias COMMAND AND CONTROL SPECIALIST-C Work Phone: -Emergency Department Work Phone: Start: 03-12-2025 End: 03-12-[address] Hossein Josue MD -[facility] Work Phone: Start: 03-12-2025 End: 03-12-2025 ambulatory Loan Dias COMMAND AND CONTROL SPECIALIST-C Work Phone: -[facility] Start: 03-10-2025 End: 03-10-[address] Raymond Lagos DO -[facility] Work Phone: Start: 03-10-2025 End: 03-10-2025 ambulatory Loan Dias COMMAND AND CONTROL SPECIALIST-C Work Phone: -[facility] Start: 03-10-2025 End: 03-10-2025 Patient encounter procedure Jarred Suh DPM Work Phone: [facility] Comment on above: Plantar fasciitis of right foot (Primary Dx); Pain in right foot Start: 03-10-2025 End: 03-10-2025 ambulatory LOAN L DIAS Facility:[facility] Start: 03-08-2025 End: 03-08-2025 Telephone encounter Sean Faustin Work Phone: [facility] Start: 03-06-2025 End: 03-06-2025 [facility] Start: 12-29-2024 End: 12-29-2024 ambulatory Francisco Gorman MD Work Phone: [facility] Comment on above: temporary stop on [place] Start: 12-18-2024 End: 12-18-2024 Telephone encounter Francisco Gorman MD Work Phone: [facility] Comment on above: Cardiac Clearance Start: 12-14-[address] Donell Escalante MD -[facility] Start: 12-14-2024 End: 12-14-2024 Patient encounter procedure Verónica Lopez NP- -[facility] Work Phone: Start: 12-14-2024 End: 12-14-2024 ambulatory Verónicaaruna Lopez COMMAND AND CONTROL SPECIALIST Facility:[facility] Start: 12-10-2024 End: 12-10-2024 ambulatory LOAN L DIAS Facility:[facility] Start: 12-09-2024 End: 12-09-2024 Nursing evaluation of patient and report Nurse Card Sean Helms Work Phone: [facility] Comment on above: Implantable loop rec order present (Primary Dx) Start: 12-09-2024 End: 12-09-2024 ambulatory LOAN L DIAS Facility:[facility] Start: 11-25-2024 End: 11-25-2024 ambulatory LOAN L DIAS Facility:[facility] Start: 11-06-2024 End: 11-06-2024 Telephone encounter Francisco Gorman MD Work Phone: [facility] Comment on above: Preparations For Pro cedures Start: 11-04-2024 End: 11-04-2024 Patient encounter procedure Francisco Gorman MD Work Phone: [facility] Comment on above: Paroxysmal atrial fi brillation (HCC) (Primary Dx); Sinus bradycardia Start: 11-04-2024 End: 11-04-2024 ambulatory LOAN L DIAS Facility:[facility] Start: 11-03-2024 End: 11-03-2024 ambulatory Loan Dias COMMAND AND CONTROL SPECIALIST-C Work Phone: [facility] Work Phone: Start: 11-03-2024 End: 11-03-[address] Antonia Escalante MD -[facility] Work Phone: Start: 11-03-2024 End: 11-03-2024 ambulatory Loan Dias COMMAND AND CONTROL SPECIALIST Facility:[facility] Start: 10-31-2024 End: 10-31-2024 ambulatory Loan Dias COMMAND AND CONTROL SPECIALIST-C Work Phone: [facility] Work Phone: Start: 10-31-2024 End: 10-31-[address] Antonia Escalante MD -Ultrasound, [facility] Work Phone: Start: 10-31-2024 End: 10-31-2024 ambulatory Loan Dias COMMAND AND CONTROL SPECIALIST Facility:[facility] Start: 10-29-2024 End: 10-29-2024 Patient encounter procedure [facility] Provider [facility] Start: 10-28-2024 End: 10-28-2024 Patient encounter procedure Smith Lopez MD Work Phone: [facility] Comment on above: PFO (patent foramen ovale) (Primary Dx); Paroxysmal atrial fibrillation (HCC) Start: 10-28-2024 End: 10-28-2024 ambulatory LOAN L DIAS [facility] Start: 10-27-2024 End: 10-27-[address] João Kong DO -[facility] Work Phone: Start: 10-27-2024 End: 10-27-2024 ambulatory Loan Dias COMMAND AND CONTROL SPECIALIST Facility:[facility] Start: 10-27-2024 End: 10-27-2024 ambulatory Loan Dias COMMAND AND CONTROL SPECIALIST-C Work Phone: [facility] Work Phone: Start: 10-27-2024 End: 10-27-[address] Mariajose Barclay MD -[facility] Work Phone: Start: 10-27-2024 End: 10-27-2024 ambulatory Mariajose Barclay Facility:[facility] Start: 10-26-2024 End: 10-26-2024 Telephone encounter Smith Lopez MD Work Phone: [facility] Cardiology [place] Comment on above: 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 Specialist - O ther Start: 10-01-2024 End: 10-02-2024 Telephone encounter Christy Luna SHANKER OUT.[employer]OR [employer]RIER Work Phone: [facility] Start: 09-30-2024 End: 09-30-2024 Telephone encounter Vandana Goldstein SHANKER OUT.[employer] CONVEYOR DRIER Work Phone: [facility] Comment on above: 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 Specialist - O ther Appointment Start: 09-24-2024 End: 09-30-2024 Evaluation and management of inpatient FRANCISCO GORMAN Facility:[facility] Start: 09-23-2024 Emergency department patient visit LOAN DIAS Facility:[facility] Start: 09-22-2024 End: 09-22-2024 Emergency department patient visit RANDA MEEK Facility:[facility] Start: 09-22-2024 End: 09-23-2024 Telephone encounter Smith Lopez MD Work Phone: [facility] Cardiology [place] Comment on above: Appointment; Care Co ordinator - Other Start: 09-22-2024 End: 09-22-2024 Emergency department patient visit LOAN DIAS Facility:[facility] Start: 09-21-[address] Donell Escalante MD -[facility] Start: 09-21-2024 End: 09-21-2024 Patient encounter procedure Verónica John COMMAND AND CONTROL SPECIALIST-[facility] Work Phone: Start: 09-21-2024 End: 09-21-2024 ambulatory Loan Dias COMMAND AND CONTROL SPECIALIST Facility:[facility] Start: 09-10-2024 End: 09-10-2024 Orders Only Vandana Goldstein APRN.[employer]ELT CONVEYOR DRIER Work Phone: [facility] [place] Comment on above: PFO (patent foramen ovale) [Q21.12] Start: 09-08-2024 End: 09-08-2024 ambulatory LOAN Elijah DIAS [facility] Start: 08-31-2024 End: 08-31-[address] Raymond Lagos DO [facility] Work Phone: Start: 08-31-2024 End: 08-31-2024 ambulatory Loan Dias COMMAND AND CONTROL SPECIALIST Facility:[facility] Start: 08-17-2024 End: 09-03-2024 Telephone encounter Kishan Piedra MD Work Phone: [facility] Comment on above: Patient Question Start: 08-05-2024 End: 08-05-2024 ambulatory LOAN Elijah DIAS Facility:[facility] Start: 07-28-2024 End: 07-28-2024 Telephone encounter Ag Card Work Phone: 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 Comment on above: Patient Question Start: 07-20-2024 End: 07-20-2024 ambulatory LOAN L DIAS Facility:[facility] Start: 07-15-2024 End: 07-15-2024 Patient encounter procedure [facility] Provider [facility] Start: 07-08-2024 End: 07-08-2024 Telephone encounter Marleny Reyez MD Work Phone: [place] [facility] Comment on above: Modified [place] [facility] Start: 07-03-2024 End: 07-03-2024 ambulatory Loan Dias COMMAND AND CONTROL SPECIALIST Facility:[facility] Start: 06-30-2024 End: 06-30-2024 Patient encounter procedure [facility] Provider [facility] Start: 06-30-2024 End: 06-30-2024 Telephone encounter Smith Lopez MD Work Phone: [facility] Comment on above: Cardiac Clearance Start: 06-26-2024 End: 06-26-2024 Telephone encounter Ag Card Work Phone: [facility] Cardiology [facility] Comment on above: Preparations For Pro cedures Start: 06-24-2024 End: 06-24-2024 Patient encounter procedure Smith Lopez MD Work Phone: 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); Essential hypertension; PFO (patent foramen ovale) Start: 06-09-2024 End: 06-09-2024 ambulatory LOAN DIAS Facility:[facility] Start: 04-29-2024 End: 04-29-2024 Telephone encounter Marleny Reyez MD Work Phone: [place] [facility] Comment on above: Stroke discharge [facility] Start: 04-19-2024 End: 04-19-2024 Admission to same day surgery center Cruz Wilkins MD Work Phone: Neurosurgery Comment on above: 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) (Primary Dx) Start: 04-19-2024 End: 04-19-2024 Telemedicine consultation with patient Cruz Wilkins MD Work Phone: Neurosurgery Start: 12-21-2023 End: 12-21-2023 Emergency department patient visit COMMAND AND CONTROL SPECIALIST-C Loan Dias COMMAND AND CONTROL SPECIALIST [facility] Work Phone: Start: 12-16-2023 End: 12-16-2023 Patient encounter procedure COMMAND AND CONTROL SPECIALIST-Jennifer Dias COMMAND AND CONTROL SPECIALIST Work Phone: [facility] Work Phone: Start: 12-12-2023 End: 12-12-2023 Emergency department patient visit COMMAND AND CONTROL SPECIALIST-Jennifer Dias COMMAND AND CONTROL SPECIALIST [facility] Phone: [facility] Work Phone: Start: 12-03-2023 Non-patient / Non-visit COMMAND AND CONTROL SPECIALIST-Jennifer Dias COMMAND AND CONTROL SPECIALIST Work Phone: [facility] Start: 12-03-2023 End: 12-03-2023 Admission to same day surgery center COMMAND AND CONTROL SPECIALIST-Jennifer Dias COMMAND AND CONTROL SPECIALIST Work Phone: [facility]-Surgical Day Care Start: 12-03-2023 End: 12-03-2023 ambulatory COMMAND AND CONTROL SPECIALIST-Jennifer Dias COMMAND AND CONTROL SPECIALIST Work Phone: [facility] Work Phone: Start: 11-06-2023 End: 11-06-2023 Patient encounter procedure COMMAND AND CONTROL SPECIALIST-Jennifer Dias COMMAND AND CONTROL SPECIALIST Work Phone: [facility] Work Phone: Start: 11-04-2023 End: 11-04-2023 ambulatory COMMAND AND CONTROL SPECIALIST-C Loan Dias COMMAND AND CONTROL SPECIALIST Work Phone: [facility] Work Phone: Start: 11-04-2023 End: 11-04-2023 Patient encounter procedure COMMAND AND CONTROL SPECIALIST-C Loan Dias COMMAND AND CONTROL SPECIALIST Work Phone: [facility]-Outpatient Breast Imaging Work Phone: Start: 11-04-2023 End: 11-04-2023 Patient encounter procedure COMMAND AND CONTROL SPECIALIST-C Loan Dias COMMAND AND CONTROL SPECIALIST Work Phone: [facility] Work Phone: Start: 11-04-2023 End: 11-04-2023 Patient encounter procedure COMMAND AND CONTROL SPECIALIST-C Loan Dias COMMAND AND CONTROL SPECIALIST Work Phone: [facility] Work Phone: Start: 10-09-2023 End: 10-09-2023 Patient encounter procedure COMMAND AND CONTROL SPECIALIST-C Loan Dias COMMAND AND CONTROL SPECIALIST Work Phone: [facility] Work Phone: Start: 09-25-2023 End: 09-25-2023 Patient encounter procedure COMMAND AND CONTROL SPECIALIST-C Loan Dias COMMAND AND CONTROL SPECIALIST Work Phone: [facility] Work Phone: Start: 09-23-2023 Registered Recurring COMMAND AND CONTROL SPECIALIST-C Loan Dias COMMAND AND CONTROL SPECIALIST [facility] Phone[facility] Start: 09-23-2023 End: 09-23-2023 Patient encounter procedure COMMAND AND CONTROL SPECIALIST-C Loan Dias COMMAND AND CONTROL SPECIALIST Work Phone: [facility] Work Phone: Start: 09-20-2023 End: 09-20-2023 ambulatory COMMAND AND CONTROL SPECIALIST-C Loan Dias COMMAND AND CONTROL SPECIALIST Work Phone: [facility] Work Phone: Start: 09-20-2023 End: 09-20-2023 Patient encounter procedure COMMAND AND CONTROL SPECIALIST-C Loan Dias COMMAND AND CONTROL SPECIALIST Work Phone: [facility] Work Phone: Start: 09-09-2023 End: 09-09-2023 Patient encounter procedure COMMAND AND CONTROL SPECIALIST-C Loan Dias COMMAND AND CONTROL SPECIALIST Work Phone: [facility] Work Phone: Start: 08-26-2023 End: 08-26-2023 ambulatory COMMAND AND CONTROL SPECIALIST-C Loan Dias COMMAND AND CONTROL SPECIALIST Work Phone: [facility] Work Phone: Start: 08-26-2023 End: 08-26-2023 Patient encounter procedure COMMAND AND CONTROL SPECIALIST-C Loan Dias COMMAND AND CONTROL SPECIALIST Work Phone: [facility]-Laboratory Work Phone: Start: 08-06-2023 End: 08-06-2023 Patient encounter procedure COMMAND AND CONTROL SPECIALIST-C Loan Dias COMMAND AND CONTROL SPECIALIST Work Phone: [facility] Work Phone: Start: 07-29-2023 End: 07-29-2023 ambulatory COMMAND AND CONTROL SPECIALIST-C Loan Dias COMMAND AND CONTROL SPECIALIST Work Phone: [facility] Work Phone: Start: 07-29-2023 End: 07-29-2023 Patient encounter procedure COMMAND AND CONTROL SPECIALIST-C Loan Dias COMMAND AND CONTROL SPECIALIST Work Phone: [facility]-Laboratory, Specimen Work Phone: Start: 05-27-2023 End: 05-27-2023 Patient encounter procedure COMMAND AND CONTROL SPECIALIST-C Loan Dias COMMAND AND CONTROL SPECIALIST Work Phone: [facility] Work Phone: Start: 05-15-2023 End: 05-15-2023 Patient encounter procedure COMMAND AND CONTROL SPECIALIST-C Loan Dias COMMAND AND CONTROL SPECIALIST Work Phone: [facility] Work Phone: Start: 05-06-2023 End: 05-06-2023 Patient encounter procedure COMMAND AND CONTROL SPECIALIST-C Loan Dias COMMAND AND CONTROL SPECIALIST Work Phone: [facility] Work Phone: Start: 03-14-2023 End: 03-14-2023 ambulatory COMMAND AND CONTROL SPECIALIST-C Loan Dias COMMAND AND CONTROL SPECIALIST Work Phone: [facility] Work Phone: Start: 03-14-2023 End: 03-14-2023 Patient encounter procedure COMMAND AND CONTROL SPECIALIST-C Loan Dias COMMAND AND CONTROL SPECIALIST Work Phone: [facility] Work Phone: Start: 03-06-2023 End: 03-06-2023 Patient encounter procedure COMMAND AND CONTROL SPECIALIST-C Loan Dias COMMAND AND CONTROL SPECIALIST Work Phone: [facility] Work Phone: Start: 03-06-2023 End: 03-06-2023 Patient encounter procedure COMMAND AND CONTROL SPECIALIST-C Loan Dias COMMAND AND CONTROL SPECIALIST Work Phone: [facility] Work Phone: Start: 02-28-2023 End: 02-28-2023 Patient encounter procedure COMMAND AND CONTROL SPECIALIST-C Loan Dias COMMAND AND CONTROL SPECIALIST Work Phone: [facility] Work Phone: Start: 02-26-2023 End: 02-26-2023 ambulatory COMMAND AND CONTROL SPECIALIST-C Loan Dias COMMAND AND CONTROL SPECIALIST Work Phone: [facility] Work Phone: Start: 02-26-2023 End: 02-26-2023 Patient encounter procedure COMMAND AND CONTROL SPECIALIST-C Loan Dias COMMAND AND CONTROL SPECIALIST Work Phone: [facility]Outpatient Breast Imaging Work Phone: Start: 02-20-2023 End: 02-20-2023 Patient encounter procedure COMMAND AND CONTROL SPECIALIST-Jennifer Dias COMMAND AND CONTROL SPECIALIST Work Phone: [facility] Work Phone: Start: 01-28-2023 End: 01-28-2023 Patient encounter procedure COMMAND AND CONTROL SPECIALIST-Jennifer Dias COMMAND AND CONTROL SPECIALIST Work Phone: [facility] Work Phone: Start: 01-15-2023 Non-patient / Non-visit COMMAND AND CONTROL SPECIALIST-C Tereza Dias COMMAND AND CONTROL SPECIALIST Work Phone: [facility] Start: 01-15-2023 End: 01-15-2023 ambulatory COMMAND AND CONTROL SPECIALIST-C Loan Dias COMMAND AND CONTROL SPECIALIST Work Phone: [facility] Work Phone: Start: 01-15-2023 End: 01-15-2023 Patient encounter procedure COMMAND AND CONTROL SPECIALIST-C Loan Dias COMMAND AND CONTROL SPECIALIST [facility] Phone[facility] Start: 12-28-2022 End: 12-28-2022 Patient encounter procedure COMMAND AND CONTROL SPECIALIST-Jennifer Dias COMMAND AND CONTROL SPECIALIST Work Phone: [facility] Start: 12-04-2022 Non-patient / Non-visit COMMAND AND CONTROL SPECIALIST-C Tereza Dias COMMAND AND CONTROL SPECIALIST Work Phone: [facility] Start: 11-05-2022 Registered Recurring COMMAND AND CONTROL SPECIALIST-Jennifer Dias COMMAND AND CONTROL SPECIALIST Work Phone: [facility] Start: 11-05-2022 End: 11-05-2022 Patient encounter procedure COMMAND AND CONTROL SPECIALIST-Jennifer Dias COMMAND AND CONTROL SPECIALIST Work Phone: [facility] Start: 11-01-2022 End: 11-01-2022 Patient encounter procedure COMMAND AND CONTROL SPECIALIST-Jennifer Dias COMMAND AND CONTROL SPECIALIST Work Phone: [facility] Start: 10-31-2022 End: 10-31-2022 ambulatory COMMAND AND CONTROL SPECIALIST-Jennifer Dias COMMAND AND CONTROL SPECIALIST Work Phone: [facility] Work Phone: Start: 10-31-2022 End: 10-31-2022 Patient encounter procedure COMMAND AND CONTROL SPECIALIST-Jennifer Dias COMMAND AND CONTROL SPECIALIST Work Phone: [facility] Start: 07-25-2022 End: 07-25-2022 Patient encounter procedure COMMAND AND CONTROL SPECIALIST-Jennifer Dias COMMAND AND CONTROL SPECIALIST Work Phone: [facility] Start: 05-21-2022 Non-patient / Non-visit COMMAND AND CONTROL SPECIALIST-C Tereza Dias COMMAND AND CONTROL SPECIALIST Work Phone: [facility] Start: 05-21-2022 End: 05-21-2022 Admission to same day surgery center COMMAND AND CONTROL SPECIALIST-Jennifer Dias COMMAND AND CONTROL SPECIALIST Work Phone: [facility]Endoscopy Start: 05-21-2022 End: 05-21-2022 ambulatory COMMAND AND CONTROL SPECIALIST-Jennifer Dias COMMAND AND CONTROL SPECIALIST Work Phone: [facility] Work Phone: Start: 04-26-2022 Non-patient / Non-visit COMMAND AND CONTROL SPECIALIST-C Tereza Dias COMMAND AND CONTROL SPECIALIST Work Phone: [facility] Start: 04-25-2022 Non-patient / Non-visit COMMAND AND CONTROL SPECIALIST-C Tereza Dias COMMAND AND CONTROL SPECIALIST Work Phone: [facility] Start: 04-25-2022 Registered Recurring COMMAND AND CONTROL SPECIALIST-Jennifer Dias COMMAND AND CONTROL SPECIALIST Work Phone: [facility] Start: 04-25-2022 End: 04-25-2022 Patient encounter procedure COMMAND AND CONTROL SPECIALIST-Jennifer Dias COMMAND AND CONTROL SPECIALIST Work Phone: [facility] Start: 02-16-2022 End: 02-16-2022 Patient encounter procedure COMMAND AND CONTROL SPECIALIST-Jennifer Dias COMMAND AND CONTROL SPECIALIST Work Phone: [facility] Start: 02-05-2022 End: 02-05-2022 Patient encounter procedure COMMAND AND CONTROL SPECIALIST-Jennifer Dias COMMAND AND CONTROL SPECIALIST Work Phone: [facility] Start: 01-29-2022 End: 01-29-2022 Patient encounter procedure COMMAND AND CONTROL SPECIALIST-Jennifer Dias COMMAND AND CONTROL SPECIALIST Work Phone: [facility] Start: 01-24-2022 End: 01-24-2022 Patient encounter procedure COMMAND AND CONTROL SPECIALIST-Jennifer Dias COMMAND AND CONTROL SPECIALIST Work Phone: [facility] Start: 01-21-2022 End: 01-21-2022 Emergency department patient visit COMMAND AND CONTROL SPECIALIST-Jennifer Dias COMMAND AND CONTROL SPECIALIST Work Phone: [facility]Emergency Department Start: 01-12-2022 End: 01-12-2022 Patient encounter procedure COMMAND AND CONTROL SPECIALIST-Jennifer Dias COMMAND AND CONTROL SPECIALIST Work Phone: [facility] Start: 01-02-2022 End: 01-02-2022 Patient encounter procedure COMMAND AND CONTROL SPECIALIST-Jennifer Dias COMMAND AND CONTROL SPECIALIST Work Phone: [facility] Start: 12-01-2021 End: 12-01-2021 Patient encounter procedure COMMAND AND CONTROL SPECIALIST-Jennifer Dias COMMAND AND CONTROL SPECIALIST Work Phone: [facility] Start: 10-26-2021 End: 10-26-2021 Patient encounter procedure COMMAND AND CONTROL SPECIALIST-Jennifer Dias COMMAND AND CONTROL SPECIALIST Work Phone: [facility] Start: 10-26-2021 End: 10-26-2021 Patient encounter procedure COMMAND AND CONTROL SPECIALIST-Jennifer Dias COMMAND AND CONTROL SPECIALIST Work Phone: [facility] Start: 10-18-2021 Registered Recurring COMMAND AND CONTROL SPECIALIST-Jennifer Dias COMMAND AND CONTROL SPECIALIST Work Phone: [facility] Start: 10-18-2021 End: 10-18-2021 Patient encounter procedure COMMAND AND CONTROL SPECIALIST-C Loan Dias COMMAND AND CONTROL SPECIALIST Work Phone: [facility] Start: 07-31-2021 Patient encounter status COMMAND AND CONTROL SPECIALIST-C Loan Dias COMMAND AND CONTROL SPECIALIST Work Phone: [facility] Start: 05-03-2018 End: 05-03-2018 Patient encounter ROSSY (PT) [facility] Start: 04-24-2018 End: 04-24-2018 Patient encounter ROSSY (PT) [facility] Start: 03-19-2018 End: 03-21-2018 Patient encounter [facility] Start: 10-24-2017 Patient encounter [facility] Start: 10-11-2017 Patient encounter [facility] Procedures Date Procedure Procedure Detail Performing Clinician Start: 06-09-2025 X-ray of lumbosacral spine Loanaruna GarciaDias COMMAND AND CONTROL SPECIALIST-C Work Phone: Start: 06-09-2025 Estimated creatinine clearance Loan Dias COMMAND AND CONTROL SPECIALIST-C Work Phone: Start: 05-11-2025 Radionuclide imaging of perfusion of myocardium under exercise stress Loanaruna GarciaDias COMMAND AND CONTROL SPECIALIST-C Work Phone: Start: 04-07-2025 Injection 1 tendon sheath/ligament aponeurosis Jarred GARCIAM Work Phone: Start: 04-04-2025 Plain chest X-ray Loanaruna GarciaDias COMMAND AND CONTROL SPECIALIST-C Work Phone: Start: 04-04-2025 Estimated creatinine clearance Loanaruna Dias COMMAND AND CONTROL SPECIALIST-C Work Phone: Start: 12-14-2024 Estimated creatinine clearance Loanaruna GarciaDias COMMAND AND CONTROL SPECIALIST-C Work Phone: Start: 11-03-2024 Dual energy X-ray absorptiometry Loanaruna GarciaDias COMMAND AND CONTROL SPECIALIST-C Work Phone: Start: 11-03-2024 Screening mammography D kae Dias COMMAND AND CONTROL SPECIALIST-C Work Phone: Start: 10-31-2024 Ultrasonography of abdomen Loan Dias COMMAND AND CONTROL SPECIALIST-C Work Phone: Start: 10-27-2024 MRI of lumbar spine Cirilo aruna Dias COMMAND AND CONTROL SPECIALIST-C Work Phone: Start: 09-22-2024 Electrocardiogram LOAN DIAS Start: 09-21-2024 Measurement of renal function Loan Dias COMMAND AND CONTROL SPECIALIST-C Work Phone: Comment on above: GFR Calc Start: 09-10-2024 Echo tthrc r-t 2d w/wom-mode compl spec&colr d Vandana Goldstein SHANKER OUT.[employer] Work Phone: Start: 09-10-2024 Echocardiography LOAN R ICHARDSON Start: 09-10-2024 LVEF ECHO Vandana Goldstein SHANKER OUT.[employer] Work Phone: Start: 09-10-2024 Radiologic exam ches t single view Vandana Goldstein APRN.[employer] Work Phone: Start: 09-10-2024 Coagulation time activated Smith Lopez MD Work Phone: Start: 08-31-2024 X-ray of knee, four or more views Loan Dias COMMAND AND CONTROL SPECIALIST-C Work Phone: Start: 04-20-2024 Lipid 1996 panel - S wesley or Plasma Marleny Reyez MD Work Phone: Start: 12-12-2023 SARS-CoV-2, Influenz a & RSV (PCR) COMMAND AND CONTROL SPECIALIST-C Loan Dias COMMAND AND CONTROL SPECIALIST Work Phone: Start: 12-12-2023 Plain chest X-ray COMMAND AND CONTROL SPECIALIST-C Loan Dias COMMAND AND CONTROL SPECIALIST Work Phone: Start: 12-03-2023 Arthroscopy of knee COMMAND AND CONTROL SPECIALIST- C Loan Dias COMMAND AND CONTROL SPECIALIST Work Phone: Start: 11-04-2023 Screening mammography N P-C Loan Dias COMMAND AND CONTROL SPECIALIST Work Phone: Start: 09-20-2023 MRI of joint of lowe r extremity COMMAND AND CONTROL SPECIALIST-C Loan Dias COMMAND AND CONTROL SPECIALIST Work Phone: Start: 09-09-2023 Radiologic examinati on of knee COMMAND AND CONTROL SPECIALIST-C Loan Dias COMMAND AND CONTROL SPECIALIST Work Phone: Start: 05-15-2023 Radiologic examinati on of knee COMMAND AND CONTROL SPECIALIST-C Loan Dias COMMAND AND CONTROL SPECIALIST Work Phone: Start: 03-14-2023 MRI of bilateral shyla asts with contrast COMMAND AND CONTROL SPECIALIST-C Loan Dias COMMAND AND CONTROL SPECIALIST Work Phone: Start: 03-06-2023 Radiologic examinati on of knee COMMAND AND CONTROL SPECIALIST-C Loan Dias COMMAND AND CONTROL SPECIALIST Work Phone: Start: 02-26-2023 Mammography COMMAND AND CONTROL SPECIALIST-C Loan Dias COMMAND AND CONTROL SPECIALIST Work Phone: Start: 02-26-2023 Ultrasonography of breast COMMAND AND CONTROL SPECIALIST-C Loan Disa COMMAND AND CONTROL SPECIALIST Work Phone: Start: 10-31-2022 Dual energy X-ray absorptiometry COMMAND AND CONTROL SPECIALIST-C Loan Dias COMMAND AND CONTROL SPECIALIST Work Phone: Start: 10-31-2022 Screening mammography N P-C Loan Dias COMMAND AND CONTROL SPECIALIST Work Phone: Start: 05-21-2022 Colonoscopy COMMAND AND CONTROL SPECIALIST-C Loan Dias COMMAND AND CONTROL SPECIALIST Work Phone: Start: 01-21-2022 Plain chest X-ray COMMAND AND CONTROL SPECIALIST-C Loan Dias COMMAND AND CONTROL SPECIALIST Work Phone: Start: 01-21-2022 CT of head without contrast COMMAND AND CONTROL SPECIALIST-C Loan Dias COMMAND AND CONTROL SPECIALIST Work Phone: Start: 01-02-2022 Radiologic examinati on of knee COMMAND AND CONTROL SPECIALIST-C Loan Dias COMMAND AND CONTROL SPECIALIST Work Phone: Start: 10-26-2021 CT of thorax with contrast COMMAND AND CONTROL SPECIALIST-C Loan Dias COMMAND AND CONTROL SPECIALIST Work Phone: Start: 10-26-2021 Screening mammography N P-C Loan Dias COMMAND AND CONTROL SPECIALIST Work Phone: Start: 01-25-2021 Trichomonas screening test Loan Dias COMMAND AND CONTROL SPECIALIST-C Work Phone: Start: 03-20-2018 Lipid 1996 panel - S wesley or Plasma Cruz Wilkins MD Work Phone: History of operative procedure on knee S/P arthroscopic surgery of left knee KEYA Dias NP Work Phone: Plan of Treatment Date Care Activity Detail Author Start: 09-26-2029 Urine microalbumin profile DTaP,Tdap,Td Vaccine (3 - Td or Tdap) [facility] Start: 04-20-2029 Lipid panel Lipid Screening [facility] Start: 09-30-2027 Diabetes Screening Diabetes Screening [facility] Start: 09-22-2027 Diabetes Screening Diabetes Screening [facility] Start: 09-08-2027 Diabetes Screening Diabetes Screening [facility] Start: 04-23-2027 Diabetes Screening Diabetes Screening [facility] Start: 04-19-2027 Diabetes Screening Diabetes Screening [facility] Start: 12-10-2025 End: 12-10-2025 Patient encounter procedure 12/10/2025 10:00 AM EDT Office Visit [facility] [address] [place] [address] Francisco Gorman MD [address] [phone] 1 year follow up [facility] Comment on above: 1 year follow up Start: 07-27-2025 BP Controlled (<130/80) BP Controlled (<130/80) [facility] Start: 06-25-2025 End: 06-25-2025 Patient encounter procedure Paroxysmal A-fib -[facility] Work Phone: Start: 06-25-2025 End: 06-25-2025 Evaluation of diagnostic study results [facility] Start: 06-24-2025 Esophagogastroduodenoscopy EGD (Not Applicable) [facility] Start: 06-24-2025 Non-patient / Non-visit Non-patient / Non-visit -[facility] Start: 06-24-2025 End: 06-24-2025 Admission to same day surgery center Abdominal pain -[facility] Work Phone: Start: 06-24-2025 Patient discharge [facility] Start: 06-22-2025 CT of thorax with contrast Chest WITH Contrast [facility] Start: 06-22-2025 End: 06-22-2025 Patient encounter procedure Departed Clinical -Cat [facility] Work Phone: Start: 06-15-2025 End: 06-15-2025 Patient encounter procedure Breast cancer of lower-inner quadrant of right female breast -[facility] Work Phone: Start: 06-09-2025 X-ray of lumbosacral spine L/S Spine Min 4 Views [facility] Start: 06-09-2025 Registered Recurring Anxiety as acute reaction to gross stress -[facility] Start: 06-09-2025 End: 06-09-2025 Patient encounter procedure Chest pain -[facility] Work Phone: Start: 06-03-2025 End: 06-03-2025 Patient encounter procedure Chest pain -[facility] Work Phone: Start: 05-12-2025 End: 05-12-2025 Patient encounter procedure 05/12/2025 9:45 AM EDT Office Visit [facility] [address] [place] [address] Jarred Suh DPM [address] [place] [address] Follow up Right foot [facility] Comment on above: Follow up Right foot Start: 04-30-2025 End: 04-30-2025 Patient encounter procedure 04/30/2025 9:00 AM EDT Office Visit [facility] [address] [place] [address] Smith Lopez MD [address] [place] [address] Return in about 6 months. briana [facility] Comment on above: Return in about 6 months. briana Start: 04-19-2025 Influenza vaccination [facility] Start: 04-07-2025 End: 04-07-2025 Patient encounter procedure 04/07/2025 9:45 AM EDT Office Visit [facility] [address] [place] [address] Jarred Suh DPM [address] [place] [address] Follow up Right foot [facility] Comment on above: Follow up Right foot Start: 04-04-2025 [facility] Start: 04-04-2025 Plain chest X-ray Chest 1 View (Portable) [facility] Start: 04-04-2025 XR Chest Single view [facility] Start: 04-04-2025 End: 04-04-2025 [facility] Start: 03-12-2025 End: 03-12-2025 Evaluation of diagnostic study results [facility] Start: 03-10-2025 End: 03-10-2025 Patient encounter procedure 03/10/2025 9:15 AM EDT Office Visit [facility] [address] [place] [address] Jarred Suh DPM [address] [place] [address] R foot/poss plantar fasciitis [facility] Comment on above: R foot/poss plantar fasciitis Start: 02-01-2025 End: 02-01-2025 Patient encounter procedure 02/01/2025 9:30 AM EDT Office Visit NEUROLOGY [address] [place], [place] [phone] Ling Harding APRN.[employer] [address] [place] [address] 6 month follow up NEUROLOGY Comment on above: 6 month follow up Start: 12-29-2024 End: 12-29-2024 Patient encounter procedure 12/29/2024 8:00 AM EDT Procedure [facility] [address] [place] [address] loop/sv/mdt/naif [facility] Comment on above: loop/sv/mdt/naif Start: 12-25-2024 End: 12-25-2024 Patient encounter procedure 12/25/2024 8:00 AM EDT Procedure [facility] [address] [place] [address] loop/sv/mdt/naif [facility] Comment on above: loop/sv/mdt/naif Start: 12-23-2024 End: 12-23-2024 Patient encounter procedure 12/23/2024 8:20 AM EDT Office Visit [facility] [address] [place] [address] Smith Lopez MD [address] [place] [address] Return in about 6 months (around 12/22/2024). [facility] Comment on above: Return in about 6 months (around ). Start: 12-07-2024 End: 12-07-2024 Patient encounter procedure 12/07/2024 10:00 AM EDT Office Visit [facility] [address] [place] [address] Francisco Gorman MD [address] [place] [address] Hospital follow up; monitor results [facility] Comment on above: Hospital follow up; monitor results Start: 11-25-2024 End: 11-25-2024 Admission to same day surgery center 11/25/2024 8:00 AM EDT - 11/25/2024 9:40 AM EDT Surgery [facility] [address] [place] [address] Francisco Gorman MD [address] [place] [address] INSERTION SUBCUTANEIOUS CARDIAC RHYTHM MONITOR,INCL PROGRAMMNG [...] EDT Hospital Encounter [facility] [address] [place] [address] Francisco Gorman MD [address] [place] [id number] (Fax) Paroxysmal atrial fibrillation (HCC) [I48.0], Sinus bradycardia [R00.1] [facility] Comment on above: Paroxysmal atrial fibrillation (HCC) [I4 8.0], Sinus bradycardia [R00.1] Start: 11-04-2024 End: 11-04-2024 Patient encounter procedure 11/04/2024 2:40 PM EDT Office Visit [facility] [address] [place], [place] [id number] Francisco Gorman MD [address] [place] [phone] Discuss montior results/PPM Implant [facility] Comment on above: Discuss montior results/PPM Implant Start: 10-28-2024 End: 10-28-2024 Patient encounter procedure [facility] Comment on above: 1mo PFO Closure follow up 1mo PFO Closure foll ow up/srs Start: 09-10-2024 End: 09-10-2024 Admission to same day surgery center 09/10/2024 12:00 PM EST - 09/10/2024 2:00 PM EST Surgery [facility] [address] [place] [address] Smith Lopez MD [address] [place], [place] [id number] PERCUTANEOUS TRANSCATHETER 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 [facility] Comment on above: PERCUTANEOUS TRANSCATHETER CLOSURE OF CO NGENITAL INTERATRIAL COMMUNICATION W/O IMPLANT Start: 09-10-2024 Subsequent hospital visit by physician 09/10/2024 12:00 PM EST Hospital Encounter [facility] [address] [place] [address] Smith Lopez MD [address] [place] [address] PFO (patent foramen ovale) [Q21.12] [facility] Comment on above: PFO (patent foramen ovale) [Q21.12] Start: 09-10-2024 End: 09-10-2024 Intracard echocard w/ther/dx ivntj incl img s&i [facility] Start: 09-10-2024 End: 09-10-2024 Prq tcat clsr cgen intratrl comunicaj w/implt [facility] Start: 08-19-2024 Advance Directive Discussion Advance Directive Discussion [facility] Start: 08-19-2024 Medicare Advantage Annual Wellness Visit Medicare Advantage Annual Wellness Visit [facility] Start: 08-05-2024 End: 08-05-2024 Admission to same day surgery center 08/05/2024 9:50 AM EST - 08/05/2024 10:55 AM EST Surgery [facility] [address] [place] [address] Kishan Piedra MD [address] [place] [address] ECHOCARDIOGRAM TRANSESOPHOGEAL, REAL TIME W/IMAGE DOCUMENT (2D) [...] NEUROLOGY [address] [place], [place] [phone] Ling Harding APRN.[employer] [address] [place] [address] 6 week follow up NEUROLOGY Comment on above: 6 week follow up Start: 07-20-2024 End: 07-20-2024 Admission to same day surgery center 07/20/2024 8:30 AM EST - 07/20/2024 9:30 AM EST Surgery [facility] [address] [place] [address] Cecily Guerrero MD [address] [place], [place] [id number] ECHOCARDIOGRAM TRANSESOPHOGEAL [facility] Comment on above: ECHOCARDIOGRAM TRANSESOPHOGEAL Start: 07-20-2024 End: 07-20-2024 Echo transesophag montr cardiac pump functj ECHOCARDIOGRAM TRANSESOPHOGEAL PFO (patent foramen ovale) 07/20/2024 8:30 AM EST [facility] Start: 07-20-2024 Subsequent hospital visit by physician 07/20/2024 8:30 AM EST Hospital Encounter [facility] [address] [place] [address] Cecily Guerrero MD [address] [place], [place] [id number] PFO (patent foramen ovale) [Q21.12] [facility] Comment on above: PFO (patent foramen ovale) [Q21.12] Start: 06-24-2024 End: 06-24-2024 Patient encounter procedure [facility] Comment on above: PFO PFO /sab Start: 06-09-2024 End: 06-09-2024 Patient encounter procedure 06/09/2024 1:30 PM EDT Office Visit Cerebrovascular [address] [place], [place] [phone] Ling Harding APRN.[employer] [address] [place] [address] Order [id number] [facility] Comment on above: Order [id number] Start: 04-19-2024 Covid-19 Vaccine (3 - 2023-24 season) Covid-19 Vaccine ( season) [facility] Start: 04-19-2024 Covid-19 Vaccine ( season) Covid-19 Vaccine ( season) [facility] Start: 04-19-2024 Influenza vaccination Influenza Vaccine (#1) [facility] Start: 12-12-2023 [facility] Start: 12-12-2023 End: 12-12-2023 [facility] Start: 12-03-2023 Anes open/surg arthroscopic proc knee joint nos ANESTH KNEE JOINT SURGERY [facility] Start: 12-03-2023 Arthrs knee w/meniscectomy med&lat w/shaving KNEE ARTHROSCOPY/SURGERY [facility] Start: 12-03-2023 Patient discharge [facility] Start: 12-03-2023 Application of ice collar, cap or bag [facility] Start: 12-03-2023 Catheterization of vein [facility] Start: 12-03-2023 Elevation of affected extremity [facility] Start: 12-03-2023 Following clinical pathway protocol [facility] Start: 12-03-2023 Procedure discontinued [facility] Start: 12-03-2023 Provision of mobility device [facility] Start: 12-03-2023 Taking patient vital signs [facility] Start: 12-03-2023 Vital signs measurements [facility] Start: 12-03-2023 End: 12-03-2023 [facility] Start: 12-03-2023 Medication education [facility] Start: 08-19-2023 Advance Directive Discussion Advance Directive Discussion [facility] Start: 03-20-2023 Lipid panel Lipid Screening [facility] Start: 10-31-2022 Dual energy X-ray absorptiometry Dexa Bone Density Study [facility] Start: 10-31-2022 DXA Bone [Mass/Area] Bone density [facility] Start: 05-21-2022 Patient discharge [facility] Work Phone: Start: 01-24-2022 Patient referral [facility] Work Phone: Start: 01-21-2022 [facility] Work Phone: Start: 01-01-2022 Patient referral [facility] Work Phone: Start: 05-30-2021 Screening for malignant neoplasm of breast Mammogram Screening [facility] Start: 11-16-2020 Venous catheter care management [facility] Start: 09-09-2020 [facility] Start: 06-13-2020 [facility] Start: 06-02-2020 [facility] Start: 2019 Pneumococcal Vaccine: 65+ (1 of 1 - PCV) Pneumococcal Vaccine: 65+ (1 of 1 - PCV) [facility] Start: 2019 Screening for osteoporosis Bone Density Screening [facility] Start: 2014 RSV Vaccine (1 - 1-dose 60+ series) RSV Vaccine (1 - 1-dose 60+ series) [facility] Start: 2014 RSV Vaccine (1 - Risk 60-74 years 1-dose series) RSV Vaccine (1 - Risk 60-74 years 1-dose series) [facility] Start: 2004 Pneumococcal Vaccine: 50+ (1 of 1 - PCV) Pneumococcal Vaccine: 50+ (1 of 1 - PCV) [facility] Start: 2004 Shingrix Vaccine (1 of 2) Shingrix Vaccine (1 of 2) [facility] Start: 1999 Screening for malignant neoplasm of colon [facility] Start: 1973 Pneumococcal Vaccine: 50+ (1 of 2 - PCV) Pneumococcal Vaccine: 50+ (1 of 2 - PCV) [facility] Start: 1973 Shingrix Vaccine (1 of 2) Shingrix Vaccine (1 of 2) [facility] Start: 1972 Annual PCP Team Chronic Disease Visit Annual PCP Team Chronic Disease Visit [facility] Start: 1972 BP Controlled (<130/80) BP Controlled (<130/80) [facility] Start: 1972 Depression Screening Depression Screening [facility] Start: 1972 Hepatitis C screening Hepatitis C Screening [facility] CBC W Auto Different ial panel - Blood [facility] Colonoscopy [facility] Work Phone: Comprehensive metabo lic 2000 panel - Serum or Plasma [facility] CT Chest W contrast IV [facility] ECG B/O W INTERP (MED OFFICE) EC G B/O W INTERP (MED OFFICE) ECG Routine PFO (patent foramen ovale) Ordered: 06/24/2024 [facility] Work Phone: Comment on above: Ordered: 06/24/2024 ECG B/O W INTERP (MED OFFICE) EC G B/O W INTERP (MED OFFICE) ECG Routine Ordered: 11/04/2024 [facility] Work Phone: Comment on above: Ordered: 11/04/2024 Echo transesophag r- t 2d w/prb img acquisj i&r ECHOCARDIOGRAM TRANSESOPHOGEAL, REAL TIME W/IMAGE DOCUMENT (2D) PFO (patent foramen ovale) [facility] End: 06-24-2025 ECHO TRANSESOPHAGEAL ECHO TRANSESOPHAGEAL Cardiology Routine PFO (patent foramen ovale) 1 Occurrences starting 06/24/2024 until 06/24/2025 [facility] Comment on above: 1 Occurrences starting 06/24/2024 until 06/24/2025 End: 07-23-2025 ECHO TRANSESOPHAGEAL ECHO TRANSESOPHAGEAL Cardiology Routine PFO (patent foramen ovale) 1 Occurrences starting 07/23/2024 until 07/23/2025 [facility] Work Phone: Comment on above: 1 Occurrences starting 07/23/2024 until 07/23/2025 End: 07-26-2025 ECHO TRANSESOPHAGEAL ECHO TRANSESOPHAGEAL Cardiology Routine PFO (patent foramen ovale) 1 Occurrences starting 07/26/2024 until 07/26/2025 [facility] Work Phone: Comment on above: 1 Occurrences starting 07/26/2024 until 07/26/2025 End: 09-10-2024 ELECTROPHYSIOLOGY US ELECTROPHYSIOLOGY US BIC Routine One Time for 1 Occurrences starting 09/10/2024 until 09/10/2024 [facility] Work Phone: Comment on above: One Time for 1 Occurrences starting 08/20 until 09/10/2024 Insertion subq cardi ac rhythm monitor w/prgrmg INSERTION SUBCUTANEIOUS CARDIAC RHYTHM MONITOR,INCL PROGRAMMNG Paroxysmal atrial fibrillation (HCC) Sinus bradycardia [facility] MG Breast - bilatera l Diagnostic [facility] MG Breast - bilateral Screening [facility] Patient Education [facility] Work Phone: Patient referral [facility] Work Phone: End: 09-10-2024 RIGHT HEART CATHETERIZATION RIGHT HEART CATHETERIZATION BIC Routine One Time for 1 Occurrences starting 09/10/2024 until 09/10/2024 [facility] Comment on above: One Time for 1 Occurrences starting 08/20 until 09/10/2024 [facility] Immunizations Immunization Date Immunization Notes Care Provider Tasha burton 08-27-2021 COVID-19 original vaccine, age 12+ yr, monovalent ([employer] [place] - PURPLE TOP) Cruz Wilkins MD Work Phone: [facility] 06-19-2021 influenza, injectabl e, quadrivalent, preservative free [employer]IST[employer] Loan Garciason [employer] AND CONTROL SPECIALIST Work Phone: [facility] 06-19-2021 influenza, seasonal, injectable [employer] SPECIALIST-C Loan Dias [employer] AND CONTROL SPECIALIST Work Phone: [facility] 06-19-2021 influenza virus vaccine, unspecified formulation Cruz Wilkins MD Work Phone: [facility] 05-26-2020 influenza, injectabl e, quadrivalent, preservative free [employer] SPECIALIST-C Loan Dias COMMAND AND CONTROL SPECIALIST Work Phone: [facility] 05-26-2020 influenza, seasonal, injectable [employer] SPECIALIST-C Loan Dias COMMAND AND CONTROL SPECIALIST Work Phone: [facility] 05-26-2020 influenza, seasonal, injectable, preservative free Cruz Wilkins MD Work Phone: [facility] 09-26-2019 diphtheria, tetanus toxoids and acellular pertussis vaccine, unspecified formulation [employer] SPECIALIST-C Loan Dias COMMAND AND CONTROL SPECIALIST Work Phone: [facility] Work Phone: 09-26-2019 tetanus toxoid, reduced diphtheria toxoid, and acellular pertussis vaccine, adsorbed [employer] SPECIALIST-C Loan Dias COMMAND AND CONTROL SPECIALIST Work Phone: [facility] Payers Date Payer Category Payer Medicare (Managed Care) [employer]ACE [employer] HMO Member Subscriber Plan / Payer (Effective 2023-Present) Name: Bo Jacob Relation to Subscriber: Self Name: Bo Jacob Payer ID: [id number] ([facility]) Group ID: [id number] Type: HMO Address: [address] [place] [id number] 2023 Unknown [facility] S AND BLUE [employer] ANTHEM MEDICARE ADVANTAGE O [id number] 2023-Present [phone] [address] [id number] 2023 Medicaid [id number] 2020 Medicaid [id number] 2020 Medicare [id number] 2020 Self-pay [id number] Medicare [id number] Medicare ANTHEM MEDICARE SENIOR ADVANTA [id number] Unknown [id number] Unknown [id number] 2.16.840.1.219031.3.579.2. 462 Unknown [id number] .840.1.645519.3.579.2. 462 Unknown [id number] 2..840.1.296717.3.579.2. 462 Unknown [id number] 2.840.1.782928.3.579.2. 462 Unknown [id number] 2.840.1.758310.3.579.2. 462 Unknown [id number] .840.1.461045.3.579.2. 462 Unknown [id number] 2.840.1.775610.3.579.2. 462 Unknown [id number] 2.840.1.266807.3.579.2. 462 Unknown [id number] .840.1.037373.3.579.2. 462 Unknown [id number] .840.1.119704.3.579.2. 462 Unknown [id number] .840.1.600740.3.579.2. 462 Unknown [id number] .840.1.177536.3.579.2. 462 Unknown [id number] 2.840.1.850151.3.579.2. 462 Unknown [id number] .840.1.046570.3.579.2. 462 Unknown [id number] .840.1.921649.3.579.2. 462 Unknown [id number] 2.840.1.259344.3.579.2. 462 Unknown [id number] .840.1.289832.3.579.2. 462 Unknown [id number] 2.840.1.268256.3.579.2. 462 Unknown [id number] 2.840.1.488365.3.579.2. 462 Unknown [id number] 2.16.840.1.119517.3.579.2. 462 Unknown [id number] 2.16.840.1.238410.3.579.2. 462 Unknown [id number] 2.16.840.1.711320.3.579.2. 462 Unknown [id number] 2.16.840.1.073990.3.579.2. 462 Unknown [id number] 2.16.840.1.400554.3.579.2. 462 Unknown [id number] 2.16.840.1.466657.3.579.2. 462 Unknown [id number] 2.16.840.1.377850.3.579.2. 462 Unknown [id number] 2.16.840.1.856067.3.579.2. 462 Unknown [id number] 2.16.840.1.969736.3.579.2. 462 Social History Date Type Detail Facility Start: 01-21-2022 End: 05-15-2023 Tobacco smoking status MIIS Unknown if ever smoked [facility] Start: 09-07-2020 Occasional [facility] Start: 09-07-2020 None [facility] Start: 09-07-2020 Alone [facility] Start: 11-28-2020 Cigarettes [facility] Start: 1955 Sex Assigned At Female [facility] Start: 05-11-2020 End: 06-09-2024 Tobacco smoking status MIIS Ex-smoker [facility] History of tobacco use Current smoker [facility] History of tobacco use Cigarette Smoker [facility] Start: 05-11-2020 End: 11-04-2024 Tobacco use and exposure Smokeless tobacco non-user [facility] Start: 07-16-2021 End: 07-27-2024 Alcoholic beverage intake Current drinker of alcohol (finding) [facility] Start: 07-24-2020 End: 07-16-2021 Alcoholic beverage intake [facility] Start: 06-10-2020 End: 07-24-2020 Alcohol Use Disorder Identification Test - Consumption [AUDIT-C] [facility] How often to you hav e a drink containing alcohol? 2-3 time sa week [facility] How many standard dr inks containing alcohol do you have on a typical day? 3 or 4 [facility] Start: 07-20-2012 Frequency of Binge Drinking Not on file [facility] Start: 05-11-2020 End: 06-09-2024 Tobacco Comment Pt smoked one pack weekly x 1 year. [facility] Start: 04-25-2021 Alcohol Comment glass of wine every couple of days [facility] Start: 03-29-2020 Gender identity Identifies as female gender (finding) [facility] Has the [employer], [employer], or water company threatened to shut off services in your home in past 12Mo No [facility] Work Phone: (I/We) worried ian er (my/our) food would run out before (I/we) got money to buy more. Never true [facility] Start: 06-24-2024 Alcohol Comment rately [facility] Start: 09-22-2024 End: 04-07-2025 Alcoholic beverage intake Ex-drinker (finding) [facility] Start: 11-04-2024 End: 06-18-2025 Tobacco smoking status NHIS Never smoked tobacco [facility] Start: 11-04-2024 Alcohol Comment none [facility] Start: 11-05-2024 End: 11-11-2024 Sex Female (finding) [facility] NEGATED: Highlighted row [facility] Medical Equipment Procedure Code Equipment Code Equipment Origin al Text Equipment Identifier Dates [facility] 8[facility] Plastic Polyurethane Implantable Infusion - [id number] Start: 06-08-2020 [place] [employer] FDA Start: 09-10-2024 [place] [employer] FDA Start: 09-10-2024 [place] [employer] FDA Start: 09-10-2024 [id number] Start: 11-25-2024 [place] [employer] FDA Start: 09-10-2024 [place] [employer] FDA Start: 09-10-2024 [place] [employer] FDA Start: 09-10-2024 [place] [employer] FDA Start: 09-10-2024 [place] [employer] FDA Start: 09-10-2024 [place] [employer] FDA Start: 09-10-2024 [place] [employer] FDA Start: 09-10-2024 [place] [employer] FDA Start: 09-10-2024 Goals Date Patient Goal Desired Activity /State Personal health goal Functional Status Date Assessment Result Facility 09-30-2024 Are you deaf, or do you have serious difficulty hearing No 09/30/2024 4:43 PM Trey Morley RN No [facility] 09-30-2024 Are you blind, or do you have serious difficulty seeing, even when wearing glasses No 09/30/2024 4:43 PM Trey Morley RN No [facility] 09-30-2024 Do you have serious difficulty walking or climbing stairs No 09/30/2024 4:43 PM Trey Morley RN No [facility] 09-30-2024 Do you have difficul ty dressing or bathing No 09/30/2024 4:43 PM Trey Morley RN No [facility] 09-30-2024 Because of a physica l, mental, or emotional condition, do you have difficulty doing errands alone such as visiting a physician's office or shopping No 09/30/2024 4:43 PM Trey Morley RN No [facility] Mental Status Date Assessment Result Facility 06-24-2025 Cognitive function Voice/Name [facility] Work Phone: 04-04-2025 Cognitive function Voice/Name [facility] Work Phone: 09-30-2024 Because of a physica l, mental, or emotional condition, do you have serious difficulty concentrating, remembering, or making decisions No 09/30/2024 4:43 PM Trey Morley RN No [facility] 12-12-2023 Cognitive function Level Of Cons ciousness Awake;Alert;Appropriate [facility] Work Phone: 12-03-2023 Cognitive function Level Of Cons ciousness Awake;Alert [facility] Work Phone: 12-03-2023 Cognitive function Voice/Name [facility] Work Phone: 05-21-2022 Cognitive function Voice/Name [facility] Work Phone: 01-21-2022 Cognitive function Level Of Cons ciousness Awake;Alert;Appropriate;Fo llows Commands [facility] Work Phone: Clinical Notes 04-11-2021 to 06-24-2025 Note Date & Type Note Facility 06-24-2025 Note [facility] Medical Records Department [address] [place] [address] History Physical Exam 06/24/25 1048 MR#: [id number] Acct: [id number] Name: BO JACOB Rep #: [id number] : 1955 69 From: Vern Friend PCP: KEYA Reaves Status:[facility] Location: [place] [address] HPI - General General Date of Admission: 06/24/25 Date of Service: 06/24/25 Chief Complaint: Chest pain and GERD HPI Narrative BO JACOB, is a 69 F who presents [ Chief Complaint: chest pain Details: OV 04/12/2025 The patient is a 69-year-old female with a history of atrial fibrillation secondary to PFO closure and pericarditis, now presenting with recurrent chest pressure. She first experienced the symptoms this past September and reports they resolved with the initiation of amiodarone, Cardizem, pantoprazole and colchicine. He discontinued amiodarone after 45 days and reports discontinuing colchicine shortly after this. She reports reducing her Cardizem dose from 360 to 180 mg 3 weeks ago and has since had 5 episodes of tachycardia (alerted by her smart watch) with associated chest pressure that radiates into her neck and back. She was seen in the emergency department 04/06/2025 and EKG was unremarkable. I did reach out to KIRILL Cornelius in cardiology office as patient has a loop recorder implanted and we will await evaluation of recent findings. She denies any heartburn, nausea, vomiting, or weight loss. The patient is a 69-year-old female presenting with persistent chest pain. The chest pain has been ongoing and is described as radiating from the chest to the neck and through to the back. She reports the pain occurs frequently, and it is not affected by eating, caffeine, or medication. The patient notes the pain as sharp but not extremely so, and it lingers before eventually dissipating. There are no associated symptoms like heartburn, nausea, or vomiting, and she denies any esophageal spasms or food sticking during swallowing. The pain began after undergoing a PFO closure, followed by atrial fibrillation. She has been on Cardizem 360 mg, which initially managed her symptoms until dosing changes were made. There has been no significant weight change, and no NSAIDs are used, only Tylenol if necessary. The patient has a history of breast cancer with radiation on the right breast but denies whole chest radiation. This all began after the cardiac intervention and remains despite returning to higher Cardizem doses. [facility] Medical History Screening for breast cancer Lumbar spine pain Pericardial effusion Atrial fibrillation with RVR Acute pericarditis Chest pain Paroxysmal A-fib Use of aromatase inhibitors Screening for osteoporosis Elevated alkaline phosphatase level History of transesophageal echocardiography (BLACK) PFO (patent foramen ovale) Wears glasses Marijuana use Dietary restriction Left breast lump ER+ (estrogen [...] Medications ???Medication ???Instructions ???Recorded ???Last Taken ???Type cholecalciferol (vitamin D3) 125 250 mcg PO DAILY 11/18/23 06/23/25 History mcg (5,000 unit) tablet (Vitamin D3) apixaban 5 mg tablet (Eliquis) 5 mg PO BID 10/08/24 06/20/25 Hist ory exemestane 25 mg tablet 25 mg PO DAILY #90 TABLETS 5 06/23/25 Rx ascorbate calcium (vitamin C) 500 500 mg PO QDAY 03/10/25 06/23/25 History mg tablet calcium acetate 667 mg tablet 667 mg PO ONCE 03/10/25 06/23/25 H istory clonazepam 0.5 mg tablet 0.5 mg PO BID PRN anxiety #60 tabs 04/13/25 06/23/25 Rx diltiazem HCl 360 mg 360 mg PO QAM this dose was 06/24/25 05:30 History capsule,extended release 24 hr resumed by PCP 04/13/25 (Cardizem CD) pantoprazole 40 mg tablet,delayed 40 mg PO QDAY #90 tabs 06/03/25 1 08/24/24 05:30 Rx release aspirin 81 mg tablet,delayed 81 mg PO DAILY 06/18/25 06/20/25 H istory release Allergy/AdvReac Type Severity Reaction Status Date / Time adhesive tape Allergy Intermediate Hives Verified 06/24/25 10:24 (more content not included)... [facility] 06-09-2025 Progress note [facility] 06-09-2025 Progress note Note Date/Time June 09, 2025 4:21pm [facility] [address] [place] [id number] OFFICE VISIT Date of Service: 06/09/25 1407 MR#: [id number] Acct: [id number] Name: BO JACOB Rep #: [id number] : 1955 From: Verónica Becerra ch, NP COMMAND AND CONTROL SPECIALIST-C Age/Sex: 69/F Location: [facility] Status: Signed HPI Subjective Date of Service 06/09/25 Chief Complaint Breast cancer on treatment History of Present Illness 69-year-old with stage IA (T1c, N0, M0) G3, ER positive, WI positive, 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 After skipping 2019 screening mammographies she felt a painless lump in the right breast and a diagnostic mammogram followed by a biopsy confirmed malignancy. April 28, 2020 she underwent a partial mastectomy with sentinel lymph node biopsy. Her work-up and surgery were done at [facility], she was then seen by medical oncology at [facility] with the recommendation of an adjuvant course of chemo immune therapy (ACTH/TCH) . She then went for a second opinion at [facility] were adjuvant chemoradiotherapy (TH) again recommended. She eventually made the decision to receive her treatment at [facility] close to home. CT chest June [...] field. Patient drove all the way to [place] and then back just prior to 2020. Experienced an acute right lower back pain and right sided sciatica. Although she had similar but less severe episodes in the past, this by far was the worst she ever experienced. She was seen in [facility] emergency room and plain x-rays [...] rare benign ductal elements June Diagnostic mammogram & US/Breast Limited Unilateral IMPRESSION: The palpable lump at the 9:00 position of the breast at 6 cm from the nipple corresponds to a 8 mm x 15 mm x 6 mm echogenic nodule most likely representing a lipoma. ASSESSMENT CATEGORY: BIRADS Category 2: Benign. Treatment summary: April 28, 2020 right partial mastectomy with sentinel lymph node biopsy. June 15, 2020 -August 31, 2020: 12 weekly treatments with adjuvant Taxol Herceptin. September 21, 2020 March 29, 2021 adjuvant Herceptin. Treatment was discontinuedwhen the patient became acutely ill with COVID-19 and had a protracted recovery. October-December 2020 adjuvant Arimidex, stopped due to musculoskeletal pains. January 2021 exemestane (better tolerated)- Adjuvant radiation: 4256 cGy of mixed 6 and 10 MV photons in 16 fractions to theright breast with a 3D conformal. A sequential boost consisting of 1000 cGy of mixed 6 and 10 MV photons in 5 fractions was delivered to the lumpectomy cavity with a 3D conformal technique. Date of First Treatment: 09/26/2020 Date of Last Treatment: 10/27/2020 Interval History The patient is presenting to clinic for a planned follow up. She reports good tolerance and good adherence to exemestane at this time. Takes at HS. Taking calcium and vitamin D. Reports midsternal CP x several months. Pain occurs several times per day, lastsseveral minutes, rates 5-8/10, describes as feels tight, moves up my both sidesof my neck and toward the back. Underwent echo, stress test. cardiology has not identified source of pain. Met with GI, started on PPI- no improvement. Plans EGD on 06/24/25. C/o mid, low back pain following a twisting injury 1 week ago. Follows with pain management for chronic back pain issues. c/o left breast lump, noticed several weeks ago. Unchanged. [facility] Medical History Pericardial effusion Atrial [...] 1-2 times per week duration: 15-30 minutes/day frankie/worship: Non-Jainism/Independent seatbelt use: always do you feel safe at home: Yes ROS ROS Narrative Negative except as documented in the interval HPI Intake Vital Signs 12/14/24 15:38 04/13/25 15:12 06/09/25 14:08 06/09/25 14:19 Height 5 ft 1 in 5 ft 1 in 5 ft 1 in 5 ft 1 in Weight: 182 lb 9 oz BMI 34.4 BP 129/78 H Blood Pressure Location Lt brachial Position Sitting Respiration 18 Pulse 82 Pulse Source Monitor Temp 99.2 F H Temperature Source Temporal Artery Pulse Oximetry (%) 99 Oxygen Delivery Method room air Intake Is patient in pain?: No Allergies adhesive tape Allergy (Intermediate, Verified 06/09/25 14:17) Hives oxycodone Allergy (Intermediate, Verified 06/09/25 14:17) Rash anastrozole Adverse Reaction (Severe, Verified 06/09/25 14:17) joint pain, anxiety, hot flashes Medications ?Medication ?Instructions ?Recorded ?Confirmed ?Type cholecalciferol (vitamin D3) 125 250 mcg PO DAILY 0409/1106/09/25 History mcg (5,000 unit) tablet (Vitamin D3) apixaban 5 mg tablet (Eliquis) 5 mg PO BID 10/08/24 History exemestane 25 mg tablet 25 mg PO DAILY #90 TABLETS 0 12/14/24 06/09/25 Rx ascorbate calcium (vitamin C) 500 500 mg PO QDAY 03/1006/09/25 History mg tablet calcium acetate 667 mg tablet 667 mg PO ONCE 03/10/25 06/09/25 History clonazepam 0.5 mg tablet 0.5 mg PO BID PRN anxiety #6 0 tabs 04/13/25 06/09/25 Rx diltiazem HCl 360 mg 360 mg PO QAM this dose was 04/14/25 06/09/25 History capsule,extended release 24 hr resumed by PCP 04/13/25 (Cardizem CD) pantoprazole 40 mg tablet,delayed 40 mg PO QDAY #90 ta bs 06/03/25 06/09/25 Rx release Have you fallen in the past year?: No Laboratory Tests 06/09/25 13:06 WBC 6.6 Hgb 16.2 H Hct 48.2 H Plt Count 293 Absolute Neuts (auto) 4.4 Sodium 140 Potassium 4.0 Chloride 103 Carbon Dioxide 25.3 BUN 15 Creatinine 1.13 Glucose 100 H Calcium 9.6 Total Bilirubin 0.60 AST 20 ALT 22 Alkaline Phosphatase 126 H Exam Physical Exam Narrative ECOG 0-1 Const alert and oriented x3 General Appearance: well kempt HEENT normocephalic and head/scalp atraumatic Eyes General Eye: normal appearance of both eyes Conjunctiva: conjunctiva normal Neck no lymphadenopathy Chest Chest Narrative: Right breast shows well healed scars within the axilla and breast, no palpable masses, skin abnormalities, nipple discharge or retraction Left breast without palpable masses skin, abnormalities. Nipple retracted. No axillary adenopathy Resp normal respiratory effort and clear to auscultation bilaterally Cardio regular rate, regular rhythm, S1 normal heart sound and S2 normal heart sound Psych mental status grossly normal Coding Level of Care Code Off vis,est,level 4 Exam Problem Focused Diagnoses 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 breast of female, estrogen receptor positive C50.311; Z17.0 Estrogen receptor status: positive Osteopenia of necks of both femurs M85.851; M85.852 Osteopenia location: femoral neck Laterality: bilateral Lumbar spine pain M54.50 Other chest pain R07.89 Chest pain type: other chest pain Assessment and Plan Assessment and Plan (1) Breast cancer of lower-inner quadrant of right female breast: Status: Chronic Qualifiers: Estrogen receptor status: positive Qualified Code(s): C50.311 - 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; Z17.0 - Estrogen receptor positive status [ER+] Comment: s/p lumpectomy, rad, chemo in 2019- surgery at [facility] (2) Osteopenia: Status: Chronic Qualifiers: Osteopenia location: femoral neck Laterality: bilateral Qualified Code(s): M85.851 - Other specified disorders of bone density and structure, right thigh; M85.852 - Other specified disorders of bone density and structure, left thigh (3) Lumbar spine pain: Status: Acute (4) Chest pain: Status: Acute Qualifiers: Chest pain type: other chest pain Qualified Code(s): R07.89 - Other chest pain Orders: Orders Chest WITH Contrast Today C50.311 - 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, R07.9 - Chest pain, unspecified, Z17.0 - Estrogen receptor positive status [ER+] L/S Spine Min 4 Views Today M54.50 - Low back pain, unspecified Plan Breast cancer: Presented as stage IA invasive ductal cancer of the right breast (T1c, N0, M0) G3, ER positive (over 95% strong) WI positive (90% strong) HER-2/aaron 3+. Patient is status post right partial mastectomy and sentinel lymph node biopsy April 28, 2020. Completed adjuvant systemic therapy with weekly Taxol Herceptin May,-August 2020 with no grade 3 or 4 toxicities. Received adjuvant radiation therapy September?October 2020. Received adjuvant Herceptin for approximately 10 months. Course was interrupted by acute COVID-19 infection followed by a protracted recovery. Started adjuvant hormonal therapy with Arimidex October 2020, reporting anxiety, hot flashes and increasing joint aches and pains interfering with quality of life. Hormonal therapy was held in December 2020 with significant improvement in musculoskeletal pains. She was switched to exemestane as of January 2021 which is better tolerated Preadjuvant hormonal therapy showed evidence of bone loss. Comorbid conditions: Osteopenia, postmenopausal predates AI therapy,, hypertension, arrhythmia, history of recurrent cystitis. Plan: #1-Continue systemic adjuvant hormonal therapy with exemestane for at least 5 years. Adjuvant hormonal therapy started October 2020. Hot flashes and musculoskeletal pains are known side effects but were interfering with her quality of life. Changed hormonal therapy from Arimidex (nonsteroidal AI) to Exemestane (steroidal AI) . She has tolerated exemestane much better and to continue. #2-Adjuvant radiation therapy completed September-October 2020. A mildly enlarged subcentimeter right internal mammary lymph node on postop preradiation planning chest CT was noted, stable on MRI in September 2020 cannot be further characterized was included in the radiation field. That lymph node was stable on CT scan June 2021. A CT of the chest to follow-up at 12 months in October 2021 showed stable subcentimeter mediastinal and right axillary nodes and no new lymphadenopathy and unchanged hypodensities within the liver. #3-Baseline bone density September 2020 prior to starting AI therapy showed osteopenia. Patient is already on vitamin D calcium supplement and advised to continue. Advised add bone supportive therapy with Prolia or Zometa after dental clearance. Patient received educational material but declined therapy in 2020. Follow-up bone density October 2024 shows persistent osteopenia but improvement in comparison to 2022. #4-Annual screening mammography due October 2025. Orders provided. #5 Chest pain?midsternal, following closely with cardiology and GI. Plans EGD on 06/24/2025. Request CT chest with contrast. #6 Back pain following acute injury. Lumbar x-ray requested. Patient to follow with pain management and her PCP. Clinical Quality Measures Falls Risk Screening/Assistive Devices Have you fallen in the past year?: No 06/09/25 1521 <Electronically signed by Verónica LAURA> Date _ Verónica Chance Signature: Date (if applicable) CC: ~ [facility] Work Phone: 1(468) 292-759010-16-2025 [facility] Gastroenterology [address] [address] OFFICE VISIT Date of Service: 06/03/25 MR#: [id number] Acct: [id number] Name: BO JACOB Rep #: [id number] : 1955 Provider: KEYA Tan Age/Sex: 69/F [place] [facility] [place] Status: Signed Intake Vital Signs 04/13/25 15:12 06/03/25 07:58 Height 5 ft 1 in 5 ft 1 in Weight: 183 lb 181 lb 6 oz BMI 34.5 34.2 BP 120/60 142/91 H Blood Pressure Location Rt brachial Position Sitting Respiration 18 16 Pulse 106 H 78 Pulse Source Doppler Temp 97.5 F L 97.8 F Temp Source Temporal Pulse Oximetry (%) 98 98 Oxygen Delivery Method room air room air Intake Visit Reasons: CHEST PRESSURE -HEART CHECKED OUT OKAY Chief Complaint: chest pain Evs Manager Required: No Accompanied by: Self Is patient in pain?: No Allergies adhesive tape Allergy (Intermediate, Verified 06/03/25 07:57) Hives oxycodone Allergy (Intermediate, Verified 06/03/25 07:57) Rash anastrozole Adverse Reaction (Severe, Verified 06/03/25 07:57) joint pain, anxiety, hot flashes Medications ?Medication ?Instructions ?Recorded ?Confirmed ?Type cholecalciferol (vitamin D3) 125 250 mcg PO DAILY 04/0 09/1106/03/25 History mcg (5,000 unit) tablet (Vitamin D3) hydroxyzine HCl 10 mg tablet 10 mg PO TID-QID PRN anxi ety #90 04/29/24 06/03/25 Rx tabs apixaban 5 mg tablet (Eliquis) 5 mg PO BID 10/08/24 History exemestane 25 mg tablet 25 mg PO DAILY #90 TABLETS 0 12/14/24 06/03/25 Rx ascorbate calcium (vitamin C) 500 500 mg PO QDAY 03/1006/03/25 History mg tablet calcium acetate 667 mg tablet 667 mg PO ONCE 03/10/25 06/03/25 History clonazepam 0.5 mg tablet 0.5 mg PO BID PRN anxiety #6 0 tabs 04/13/25 06/03/25 Rx diltiazem HCl 360 mg 360 mg PO QAM this dose was 04/14/25 06/03/25 History capsule,extended release 24 hr resumed by PCP 04/13/25 (Cardizem CD) pantoprazole 40 mg tablet,delayed 40 mg PO QDAY #90 ta bs 06/03/25 06/03/25 Rx release Have you fallen in the past year?: No PFSH Medical History (Updated 06/03/25 @ 08:12 by Radha Tan NP-C) Pericardial effusion Atrial fibrillation with RVR Acute [...] 1-2 times per week duration: 15-30 minutes/day frankie/worship: Non-Jainism/Independent seatbelt use: always do you feel safe at home: Yes HPI HPI Chief Complaint: chest pain Details: OV 04/12/2025 The patient is a 69-year-old female with a history of atrial fibrillation secondary to PFO closure and pericarditis, now presenting with recurrent chest pressure. She first experienced the symptoms this past September and reports they resolved with the initiation of amiodarone, Cardizem, pantoprazole and colchicine. He discontinued amiodarone after 45 days and reports discontinuing colchicine shortly after this. She reports reducing her Cardizem dose from 360 to 180 mg 3 weeks ago and has since had 5 episodes of tachycardia (alerted by her smart watch) with associated chest pressure that radiates into her neck and back. She was seen in the emergency department 04/06/2025 and EKG was unremarkab le. I did reach out to KIRILL Cornelius in cardiology office as patient hasa loop recorder implanted and we will await evaluation of recent findings. She denies any heartburn, nausea, vomiting, or weightloss. The patient is a 69-year-old female presenting with persistent chest pain. The chest pain has been ongoing and is described as radiating from the chest to the neck and through to the back. She reports the pain occurs frequently, and it is not affected by eating, caffeine, or medication. The patientnotes the pain as sharp but not extremely so, and it lingers before eventually dissipating. There are no associated symptoms like heartburn, nausea, or vomiting, and she denies any esophageal spasms or food sticking during swallowing. The pain began after undergoing a PFO closure, followed by atrial fibrillation. She has been on Cardizem 360 mg, which initially managed her symptoms until dosing changes were made. There has been no significant weight change, and no NSAIDs are used, only Tylenol if necessary. Thepatient has a history of breast cancer with radiation on the right breast but denies whole chest radiation. This all began after the cardiac intervention and remains despite returning to higher Cardizem doses. ROS Const Constitutional: Positive for fatigue; No fever(s) or weight change ENT ENT: No difficulty swallowing Gastro GI: No abdominal pain, belching, bloating, change in bowel habits, change in stool character, coffee ground emesis, constipation, cramping, diarrhea, heartburn, difficulty swallowing, feeling full early, excessive flatus, incontinent of stools, Vomiting blood/hematemesis, Blood in stool, loose stool s,Black,tarry stools, nausea/dyspepsia, pain with swallowing, vomiting or other Musc Musculoskeletal: Positive for joint pain, back pain, numbness, stiffness, tingling, Arthritis and sciatica Skin Skin: No yellowing of the eye or itchy eyes Neuro Neurology: Positive for numbness and tingling Psych Psychiatric: No anxiety and No depression Endo Endocrine: Positive for fatigue; No weight change Aller/Imm Allergy/Immunologic: No itchy eyes Arjun/Lymp Hematologic/Lymphatic: Positive for easy bruising; No easy bleeding ROS Narrative - Cardiovascular: Reports chest pain radiating to the neck and back; denies moreepisodes of rapid heart rate. - Gastrointestinal: Denies heartburn, nausea, vomiting, dysphagia, or food trapping. - Respiratory: Reports occasional shortness of breath for severe pain episodes. Exam Const General: cooperative, healthy appearing, no acute distress and well developed Nutritional Appearance: average body habitus and well nourished Orientation: alert and oriented x3 HENMT Head: normocephalic Ears: hearing grossly normal bilaterally Mouth: moist mucous membranes Teeth and gingiva: dentition normal Eyes Conjunctivae: conjunctivae normal Sclera: sclerae normal Neck Neck: normal visual inspection, full ROM and trachea midline Resp Effort & Inspection: normal respiratory effort, able to speak in complete sentences and symmetric chest movement Auscultation: Bilateral: Clear to Auscultation GI Inspection: normal to inspection Auscultation: normal bowel sounds Palpation: soft and no hepatosplenomegaly Rectal Exam: deferred Skin General: no rashes or lesions noted and turgor normal Neuro General: patient alert and patient oriented x3 Cranial Nerves: other (CN's grossly intact, non-focal exam) Cognition: normal cognition Speech: speech normal Gait: normal gait Extrem General: normal to inspection (no edema noted) Psych Appearance: grossly normal and well kempt Affect: normal affect Attitude: cooperative Thought Process: normal Assessment and Plan Assessment and Plan (1) Chest pain: Status: Acute Plan: As the chest pain began after PFO closure, it is already under cardiology's oversight, and cardiac causes have been ruled out. However, given the persistentnature and the overlap with possible gastrointestinal symptoms, an upper endoscopy is planned to evaluate for any esophageal involvement such as GERD or esophageal spasm. Upping the patient's pantoprazole from 20 mg to 40 mg daily isthe next step in management. (2) Esophageal reflux: Status: Acute Plan: To assess potential esophageal causes for chest pain and GERD management, the patient's dose of pantoprazole will be increased. The medication is to be taken on an empty stomach in the morning, now at two 20 mg tablets. A follow-up appointment is needed after the upper endoscopy, and results may guide future treatment plans. Medications: New pantoprazole take once a day 30 minutes before first meal 40 mg PO QDAY 90 tabs 1RF Discontinued pantoprazole (Protonix) Discontinued Reason: Order Changed 20 mg PO QDAY 90 tabs 3RF Plan 69-year-old female with a history of breast cancer and PFO closure presenting with persistent chestpain. The pain does not appear to be cardiac-related as per previous evaluations. However, it beganafter the PFO closure, and there is a need to exclude esophageal spasm or gastroesophageal reflux disease (GERD) as a possible source of her symptomatology. The decision to evaluate the gastrointestinal tract with an upper endoscopy is prudent given her current presentation. Patient Instructions: - Increase pantoprazole dose to 40 mg daily by taking two 20 mg tablets each morning on an empty stomach. - Scheduled for an upper endoscopy to investigate potential esophageal issues. - Do not eat or drink after midnight the night before the procedure. - Arrange for a highway truck driver to help you get home after the procedure since you will be sedated. - Report any significant changes in your condition, especially if symptoms worsen or if new symptoms arise. - Follow-up in office post procedure. Coding Level of Care Code Off vis,est,level 3 Diagnoses Chest pain R07.9 Esophageal reflux K21.9 Clinical Quality Measures Falls Risk Screening/Assistive Devices Have you fallen in the past year?: No 06/03/25 0813 daysi COMMAND AND CONTROL SPECIALIST-C> Date _ Radha CHANEYC Cosigner Signature: Date (if applicable) CC: ~ [facility]09-24-2025 [facility] 04-07-2025 [facility]08-20-2025 History of Present illness Narrative* Sariah Palomo LPN - 04/07/2025 10:06 AM EDT Prepared 3 cc syringe with 2 cc bupivacaine and 1 cc depo medrol with 25 gauge needle and gave to MD for injection - Sariah Palomo LPN * Jarred Suh DPM - 04/07/2025 9:54 AM EDTAssociated Order(s): Additional Injections: R plantar fascia Post-Procedure [...] Arthritis Breast cancer (HCC) 04/07/2020 Ectopic fetus ([facility]) tube removed HLD (hyperlipidemia) Hypertension Irregular heart beat PFO (patent foramen ovale) ([facility]) MEDS Current Outpatient Medications Medication Sig Dispense Refill ascorbic acid, vitamin C, (VITAMIN C) 500 mg tablet Take 500 mg by mouth two times a day. dilTIAZem HCl 360 mg 24 hr capsule Take 1 capsule by mouth once daily. (Patient taking differently:Take 180 mg by mouth once daily.) 90 [...] sensation intact at all pedal sites via [place] 5.07 monofilament bilateral. Derm: Skin texture [...] it has been explained to them and wouldlike to proceed. See procedure note below Follow up in 4 weeks Scribe Attestation: By signing my name below, I, Swati Mcdowell MA, attest that this documentation has been prepared under the direction and in the presence of Jarred Suh DPM. Electronically Signed: Swati Mcdowell MA, Scribe. April 07, 2025 10:08 AM. Additional Injections: [...] these instructions. Informed Consent Consent Obtained: Verbal [place] Protocol SIGN IN Patient/Surrogate Stated/Verified: Patient name TIME OUT Correct side/site marked and visible. Medications required for procedure verified. SIGN OUT The post-procedure POC has been communicated to the patient or surrogate. Clinician Attestation Statement: The information in this document, created by the medical office asst for me, accurately reflects the services I personally performed and the decisions made by me. I have reviewed and approved this document for accuracy. Jarred Suh DPM, FACFAS documented in [facility] encounterWayne [facility]08-20-2025 [facility]08-17-2025 Discharge summary [facility] Medical Records Department [address] [place] [address] Emergency Department Summary 04/04/25 MR#: [id number] Acct: [id number] Name: BO JACOB Rep #:[id number] : 1955 69 From: Rob Guallpa MD [...] she has felt her heart racing a littlebit, but not like it did that day. [...] and follows with cardiology here at the [facility]. She states her cuff slitter thinks that the pressure she has been having has been chronic pericarditis. [facility] Medical History Pericardial effusion Atrial fibrillation [...] 1-2 times per week duration: 15-30 minutes/day frankie/worship: Non-Jainism/Independent seatbelt use: always do you feel safe [...] Factors: 1 or 2 Risk Factors Troponin: Score: 3 MDM MDM MDM Narrative Medical [...] to extract information about her episodes of tachyc ardia, none of which occurred while she was [...] % (Auto) 57.9 Lymph % (Auto) 29.4 [place] % (Auto) 6.6 Eos % (Auto) 4.5 [...] As soon as possible Loan Dias NP, COMMAND AND CONTROL SPECIALIST-C [Primary Care Provider] - Print Language: Pashto Disposition Disposition: Home, Self Care What to do if you have Problems For any increased pain, shortness of breath, bleeding, nausea or vomiting, chestpain, or any unexpected problems, contact your Primary Care Provider. Call [facility] ([phone]) or report tothe closest Emergency Room. Call 911 if necessary. 04/04/25 0401 Cosigner Signature (if applicable): CC: KEYA Dias ~ Signed [facility]07-23-2025 Evaluation note* Diagnosis Onset Date Resolution Status Admit Date Left knee DJD acute March 10, 2025 1:40pm Acute pericarditis acute February 172024 11:07am Atrial fibrillation with RVR acute March 12, 2025 11:07am Chest pain acute April 08, 2 025 9:19am Anxiety acute April 13, 2 025 3:02pm Essential (primary) hypertension chronic April 13 3:02pm [facility] Work Phone: 1([phone]) 734-420407-23-2025 Evaluation note* Diagnosis Onset Date Resolution Status Admit Date Left knee DJD acute March 10, 2025 1:40pm Acute pericarditis acute February 172024 11:07am Atrial fibrillation with RVR acute March 12, 2025 11:07am Chest pain acute April 08, 2 025 9:19am Anxiety acute April 13, 2 025 3:02pm Essential (primary) hypertension chronic April 13 3:02pm Chest pain acute June 03, 2025 7:44am Esophageal reflux acute June 03, 2025 7:44am Chest pain acute June 09, 2025 1:01pm Lumbar spine pain acute June 09, 2025 1:01pm Breast cancer of lower-inner quadrant of right female breast chronic June 09 1:01pm Osteopenia chronic June 09, 2025 1:01pm Anxiety as acute reaction to gross stress acute June 09 1:15pm Encounter for chemotherapy management acute June 09 1:15pm Encounter for education acute O ctober 2024 1:15pm Rash acute June 09, 2025 1:15pm Urinary frequency acute June 09, 2025 1:15pm Breast cancer of lower-inner quadrant of right female breast chronic June 09 1:15pm Osteopenia chronic June 09, 2025 1:15pm Chest pressure resolved June 092024 1:15pm Drug rash resolved June 09, 2025 1:15pm [facility] Work Phone: 1([phone]) 601-208207-23-2025 Evaluation note* Diagnosis Onset Date Resolution Status Admit Date Left knee DJD acute March 10, 2025 1:40pm Acute pericarditis acute February 172024 11:07am Atrial fibrillation with RVR acute March 12, 2025 11:07am Chest pain acute April 08, 2 025 9:19am Anxiety acute April 13, 025 3:02pm Essential (primary) hypertension chronic April 13 3:02pm Chest pain acute June 03, 2025 7:44am Esophageal reflux acute June 03, 2025 7:44am Chest pain acute June 09, 2025 1:01pm Lumbar spine pain acute June 09, 2025 1:01pm Breast cancer of lower-inner quadrant of right female breast chronic June 09 1:01pm Osteopenia chronic June 09, 2025 1:01pm Anxiety as acute reaction to gross stress acute June 09 1:15pm Encounter for chemotherapy management acute June 09 1:15pm Encounter for education acute O ctober 2024 1:15pm Rash acute June 09, 2025 1:15pm Urinary frequency acute June 09, 2025 1:15pm Breast cancer of lower-inner quadrant of right female breast chronic June 09 1:15pm Osteopenia chronic June 09, 2025 1:15pm Chest pressure resolved June 092024 1:15pm Drug rash resolved June 09, 2025 1:15pm Breast cancer of lower-inner quadrant of right female breast chronic June 15 9:14am [facility] Work Phone: 1(190) 313-445707-23-2025 Evaluation note* Diagnosis Onset Date Resolution Status Admit Date Left knee DJD acute March 10, 2025 1:40pm Acute pericarditis acute February 172024 11:07am Atrial fibrillation with RVR acute March 12, 2025 11:07am Chest pain acute April 08, 2 025 9:19am Anxiety acute April 13, 2 025 3:02pm Essential (primary) hypertension chronic April 13 3:02pm Chest pain acute June 03, 2025 7:44am Esophageal reflux acute June 03, 2025 7:44am Chest pain acute June 09, 2025 1:01pm Lumbar spine pain acute June 09, 2025 1:01pm Breast cancer of lower-inner quadrant of right female breast chronic June 09 1:01pm Osteopenia chronic June 09, 2025 1:01pm Anxiety as acute reaction to gross stress acute June 09 1:15pm Encounter for chemotherapy management acute June 09 1:15pm Encounter for education acute O ctober 2024 1:15pm Rash acute June 09, 2025 1:15pm Urinary frequency acute June 09, 2025 1:15pm Breast cancer of lower-inner quadrant of right female breast chronic June 09 1:15pm Osteopenia chronic June 09, 2025 1:15pm Chest pressure resolved June 092024 1:15pm Drug rash resolved June 09, 2025 1:15pm Breast cancer of lower-inner quadrant of right female breast chronic June 15 9:14am Abdominal pain acute June 242024 10:09am Anxiety acute June 24, 2025 10:09am Change in bowel habits acute No vember 2024 10:09am Paroxysmal A-fib acute June 25, 2025 9:10am Essential (primary) hypertension chronic June 25 9:10am [facility] Work Phone: 1([phone]) 838-780407-23-2025 NoteHNO ID: [id number] Author: RANDA OLEARY MA Service: ? Author Type: Stallion Keeper Type: Progress Notes Filed: 03/11/2025 13:58 Note Text: PT fit for a Med Night Splint. PT advised on application and care of splint. [facility]07-23-2025 History of Present illness Narrative* Randa [...] sensation intact at all pedal sites via [place] 5.07 monofilament bilateral. Derm: Skin texture [...] off the plantar aspect posterior calcaneal tuberosity. Memory Care Program Resident: RODO ... ASSESSMENT: This is a 69 [...] Jarred Suh DPM, FACFAS documented in this encounterWayne Hospital07-23-2025 [facility]07-21-2025 Telephone encounter Note* Telephone Encounter - Annie Gipson - 03/08/2025 10:48 AM EDT I spoke with the patient and scheduled an appointment. Annie Gipson [facility]07-21-2025 Miscellaneous Notes* Telephone Encounter - Annie [...] which facility was the patient seen at: [facility] Was an appointment scheduled (Y/N): no Person calling if other than patient: no Return call to if other than patient: no Best contact number: [phone] Thank you, Eddie Fritz March 08, 2025 9:20 AM documented in this encounterWayne Hospital07-21-2025 Telephone encounter Note * Telephone Encounter [...] which facility was the patient seen at: [facility] Was an appointment scheduled (Y/N): no Person calling if other than patient: no Return call to if other than patient: no Best contact number: [phone] Thank you, Eddie Fritz March 08, 2025 9:20 AM [facility]05-13-2025 Telephone encounter Note* Telephone Encounter - Mary Boothe RN - 12/29/2024 11:13 AM EDT Telephone encounter regarding clearance was sent to Dr. Gorman. Mary Boothe RN [facility]05-13-2025 Miscellaneous Notes* Telephone Encounter - Mary Boothe RN - 12/29/2024 11:13 AM EDT Telephone encounter regarding clearance was sent to Dr. Gorman. Mary Boothe RN documented in this encounterWayne Hospital05-02-2025 Telephone encounter Note * Telephone Encounter - Yazmin Maravilla RN - 12/18/2024 7:55 AM EDT Clearance form to hold Eliquis received from Dr Alex ANDREW. Form placed in Dr. Gorman's door box. Yazmin Maravilla RN [facility]05-02-2025 Miscellaneous Notes* Telephone Encounter - Yazmin Maravilla RN - 12/18/2024 7:55 AM EDT Clearance form to hold Eliquis received from Dr Alex ANDREW. Form placed in Dr. Gorman's door box. Yazmin Maravilla, RN documented in this encounterWayne Hospital04-28-2025 Evaluation note* Diagnosis Onset Date Resolution [...] knee DJD acute March 10, 2025 1:40pm [facility] [employer] [facility] Work Phone: [phone]) [phone] Evaluation note* Diagnosis Onset Date Resolution Status [...] with RVR acute March 12, 2025 11:07am [facility] Work Phone: 1(236) 364-863404-23-2025 [facility]04-23-2025 History of Present illness Narrative* Christy [...] fever. Jeanna Pickens RN documented in this encounterWayne Hospital04-23-2025 [facility]03-21-2025 Telephone encounter Note* Telephone Encounter - Yazmin Maravilla RN - 11/06/2024 1:12 PM EDT Pt's name has been added to [facility] procedure board. Yazmin Maravilla RN [facility]03-21-2025 Miscellaneous Notes* Telephone Encounter - Yazmin Maravilla RN - 11/06/2024 1:12 PM EDT Pt's name has been added to [facility] procedure board. Yazmin Maravilla, BERNABE * Telephone Encounter - Alondra Hauser - [...] verbalized understanding. Alondra Hauser documented in this encounterWayne Hospital03-21-2025 Telephone encounter Note * Telephone Encounter [...] stated above. Patient verbalized understanding. Alondra Hauser [facility]03-19-2025 [facility]03-19-2025 History of Present illness Narrative* Francisco Gorman MD - 11/04/2024 3:29 PM EDT Images from the original note were not included. [facility] [place] [facility] SECTION OF CARDIAC PACING and ELECTROPHYSIOLOGY OUTPATIENT VISIT DATE November 04, 2024 OUTPATIENT VISIT TYPE ESTABLISHED PRIMARY CARE PHYSICIAN: Loan Dias (Debra) [address] [facility] [address] [place] [id number] HISTORY OF PRESENT ILLNESS: 69 year-old female [...] recorder will also assist in deciding whether termite technician anticoagulation is necessary - SURGICAL REQUEST - ELECTIVE (03/2020) 2. Sinus bradycardia - ICD9: 427.89, ICD10: R00.1 - SURGICAL REQUEST - ELECTIVE (03/2020) Francisco Gorman MD CONTACT INFORMATION: Francisco Gorman MD documented in this encounterWayne Hospital03-15-2025 Radiology Diagnostic study note [facility] Imaging Services [address] [place], [place] [address] Abdomen Limited MR#: [id number] Acct: [id number] Name: BO JACOB Rep #: [id number] : 1955 F 69 From: Omar Perez DO PCP: KEYA Reaves Status: REG CLI Study:Abdomen Limited Date of Exam: 10/17 01/10 Exam# [id number] Ordering Dr: Antonia Escalante MD PROCEDURE: ABDOMEN [...] KEYA Dias; Dr. 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 This [...] Follow-up in 6 months Smith Tidwell MD Hydrometer Calibrator of Internal Medicine [facility] Section of Interventional Cardiology Foundation Drill Operator Helper of Structural Heart Disease [address], [address] [place] [address] Facsimile: [phone] Email: [email or web address] documented in this encounterWayne Hospital03-12-2025 [facility]03-10-2025 Telephone encounter Note* Telephone Encounter - Jeanna Pickens RN - 10/26/2024 11:51 AM EDT Myao from {[facility] called in with abnormal Holter alert: Pt experienced fainting on 10/01 at 8:30 am. He will fax report and states it has been uploaded to portal. Jeanna Pickens RN [facility]03-10-2025 Miscellaneous Notes* Telephone Encounter - Jeanna Pickens RN - 10/26/2024 11:51 AM EDT Mayo from {[facility] called in with abnormal Holter alert: Pt experienced fainting on 10/01 at 8:30 am. He will fax report and states it has been uploaded to portal. Jeanna Pickens RN documented in this encounterWayne Hospital02-14-2025 Telephone encounter Note * Telephone Encounter - Jeanna Pickens RN - 10/02/2024 10:30 AM EST Called and spoke with Travis to relay Maddison's recommendations. She states pt is taking amiodarone as specified by Maddison until she follows up with Dr. Gorman. She reports Bo is doing better this morning. Jeanna Pickens RN [facility]02-14-2025 Miscellaneous Notes* Telephone Encounter - Jeanna [...] original note were not included. Shyam Acevedo APRN.BELT CONVEYOR DRIER You16 hours ago (4:22 PM) DL Covering for Maddison Luna CNP. Patient was discharged from the hospital 09/30/2024 on amiodarone 400 mg daily x 14 days to be followed by 200 mg daily thereafter in addition to diltiazem CD 360 mg dailyas well as Eliquis 5 mg twice daily. Patient was hooked up to 14-day extended lather apprentice. If patient has had syncopal or near [...] 01, 2024 9:33 AM documented in this encounterWayne Hospital02-14-2025 Telephone encounter Note * Telephone Encounter - Christy Luna APRN.ARELY - 10/02/2024 10:25 AM EST Agree with the recommendations. She should be taking amiodarone 400 mg daily x 14 days (from hospital discharge) with subsequent reduction to 200 mg daily until she follows up with Dr. Gorman. Christy Luna APRN.ARELY [facility]02-14-2025 Telephone encounter Note* Telephone Encounter - [...] if needed for syncope. Yazmin Maravilla RN [facility]25 Telephone encounter Note* Telephone Encounter - Yazmin Maravilla RN - 10/02/2024 8:37 AM EST Images from the original note were not included. Shyam Acevedo, STEPHANIE.BELT CONVEYOR DRIER You16 hours ago (4:22 PM) DL Covering for Maddison Luna CNP. Patient was discharged from the hospital 09/30/2024 on amiodarone 400 mg daily x 14 days to be followed by 200 mg daily thereafter in addition to diltiazem CD 360 mg dailyas well as Eliquis 5 mg twice daily. Patient was hooked up to 14-day extended lather apprentice. If patient has had syncopal or near [...] lowering Cardizem CD dose. Thanks, Shyam Acevedo APRN.BELT CONVEYOR DRIER October 01, 2024 4:21 PM [facility]02-13-2025 Telephone encounter Note* Telephone Encounter - Yazmin Maravilla RN - 10/01/2024 1:30 PM EST Daughter Travis who is a nurse calls to report pt is feeling better. She reports by noon pt's HR back up to 70s bpm and BP 117/70 mmHg. She reports she gave her mother her diltiazem. She reports evenafter diltiazem HR remains in the 70s bpm. Yazmin Maravilla, RN [facility]02-13-2025 Telephone encounter Note* Telephone Encounter - Grace Ag LPN - 10/01/2024 9:21 AM EST Bo Rodriguez Cecil patient's daughter called i stated as of today at 8 am mom has had diarrhea, syncope with 45 heart rate) (was caught by daughter prior to hitting floor) B/P 94/70, 102/75 ( heart rate running 55-61) Patient's daughter holding Diltiazem until she gets better instruction,and because of mom's syncope. Grace Ag LPN October 01, 2024 9:33 AM [facility]02-12-2025 [facility]02-12-2025 [facility]02-12-2025 [facility]02-12-2025 Telephone encounter Note* Telephone Encounter - Alondra Hauser - 09/30/2024 3:23 PM EST Follow up(s) scheduled. Patient to be notified upon discharge. Alondra Hauser [facility]02-12-2025 Miscellaneous Notes* Telephone Encounter - Alondra [...] you. Christy Luna APRN.CNP documented in this encounterWayne Hospital02-12-2025 Telephone encounter Note * Telephone Encounter [...] discharged today. Thank you. Christy Luna APRN.CNP [facility]02-12-2025 Telephone encounter Note* Telephone Encounter - Lexa Lew - 09/30/2024 1:26 PM EST Spoke to patient and scheduled 1mo PFO Closure follow up for 10/28/24 at 10:20 AM. Lexa Alcocer [facility]02-12-2025 Miscellaneous Notes* Telephone Encounter - Lexa Lew - 09/30/2024 1:26 PM EST Spoke to patient and scheduled 1mo PFO Closure follow up for 10/28/24 at 10:20 AM. Lexa Alcocer * Telephone Encounter - Vandana Goldstein APRN.CNP - 09/30/2024 1:04 PM EST Please schedule patient to see Dr. Tidwell in 1 month for PFO Closure follow up. Vandana Goldstein APRN.CNP documented in this encounterWayne Hospital02-12-2025 Telephone encounter Note * Telephone Encounter - Vandana Golsdtein APRN.CNP - 09/30/2024 1:04 PM EST Please schedule patient to see Dr. Tidwell in 1 month for PFO Closure follow up. Vandana Goldstein APRN.CNP [facility]02[facility]11[facility]02-10-2025 [facility]02-10-2025 Note [facility]02-10-2025 [facility] 09-27-2024 [facility]02-09-2025 [facility]02-09-2025 [facility]02-08-2025 [facility]02-08-2025 [facility]02-08-2025 [facility]02-08-2025 [facility] Note [facility]02-08-2025 NoteHNO ID: [id number] Author: NOTE, INTERFACE, ? Service: ? Author Type: ? Type: Progress Notes Filed: 09/26/2024 02:48 Note Text: Epic Scheduled Downtime: 09/26/2024 1:00:00 AM to 09/26/2024 2:36:00 [facility]-07-2025 [facility]02-05-2025 Telephone encounter Note* Telephone Encounter - Ilda Easton LPN - 09/23/2024 4:21 PM EST Images from the original note were not included. Smith Lopez MD You5 minutes ago (4:16 PM) Talked to patient over the phone and addressed all of her concerns. Smith Alcocer [facility]02-05-2025 Miscellaneous Notes* Telephone Encounter - Ilda [...] house. Patient is planning on going to [place] on 09/24/2024 and wants to make sure she is still able to go. Ilda Easton LPN * Telephone Encounter - Jeanna Pickens RN - 09/22/2024 5:02 PM EST Bose Jennifer Jacob and daughter called in. She [...] will affect her ability to travel to [place] on 09/24/2024 for 4 days. Patient is [...] 06/24/2024. Ilda Easton LPN documented in this encounterWayne Hospital02-05-2025 Telephone encounter Note * Telephone Encounter - Ilda Easton LPN - 09/23/2024 12:06 PM EST Ms. Jacob is calling stating she went to the emergency room on 09/22/2024 to be evaluated. Patient was evaluated but is still experiencing chest pain with walking around her house. Patient is planning on going to [place] on 09/24/2024 and wants to make sure she is still able to go. Ilda Easton LPN [facility]02-04-2025 Telephone encounter Note* Telephone Encounter - Jeanna [...] CP is considered normal. Jeanna Pickens RN [facility]02-04-2025 Telephone encounter Note* Telephone Encounter - Mary Boothe RN - 09/22/2024 2:00 PM EST Pts daughter called the office. Daughter states that they called a squad and went to the ED. Daughter wanted Dr. Lopez to be aware. Mary Boothe RN [facility]-04-2025 Telephone encounter Note* Telephone Encounter - Ilda [...] will affect her ability to travel to [place] on 09/24/2024 for 4 days. Patient is asking for instructions at this time based on symptoms. Ilda Easton LPN [facility]02-04-2025 Telephone encounter Note* Telephone Encounter - Ilda Easton LPN - 09/22/2024 9:25 AM EST Ms. Jacob is calling in stating she was told to try to follow up with Dr. Lopez after 1 month from her PFO closure. Is patient to be scheduled for this follow up or the 6 month follow up from appointment on 06/24/2024. Ilda Easton LPN [facility]01-23-2025 Progress note* Allied Health - Chantel Lynn [...] (Walker, Cane, Wheelchair, Crutches, etc.)? [facility] GENDER DATA: Assigned female at . status: : No status:NO. PATIENT RELEVANT IMPLANT DATA REVIEWED: Not Applicable PATIENT PRESENTS WITH AN IMPLANTABLE OR ATTACHED SLIVER HANDLER: No RADIOLOGY DEPARTMENT: General X-ray: Exam(s) Completed: Chest X-Ray PERIPHERAL IV DATA: Not applicable SIGNED BY: RT Adriana(Jasbir) September 10, 2024 1:21 PM [facility]01-23-2025 Miscellaneous Notes* Allied Health - Chantel Lynn RT(Jasbir) - 09/10/2024 1:20 PM EST Radiology Service [...] (Walker, Cane, Wheelchair, Crutches, etc.)? [facility] PATIENT GENDER DATA: Assigned female at . status: : No status:NO. PATIENT RELEVANT IMPLANT DATA REVIEWED: Not Applicable PATIENT PRESENTS WITH AN IMPLANTABLE OR ATTACHED SLIVER HANDLER: No RADIOLOGY DEPARTMENT: General X-ray: Exam(s) Completed: Chest X-Ray PERIPHERAL IV DATA: Not applicable SIGNED BY: RT Adriana(R) September 10, 2024 1:21 PM documented in this encounterWayne Hospital01-23-2025 Surgery Surgical operation note* Operative Report - Smith Lopez MD - 09/10/2024 11:06 AM EST PROCEDURE: Intracardiac Echocardiography PFO Closure with a 30mm [place] Cardioform septal occluder Name: Bo Jacob Date: September 10, 2024 STAFF PHYSICIAN: Dr. Smith Tidwell MD ACCESS: 11F RFV superior access, 11F RFV inferior Access DEVICE: 30mm [place] Cardioform septal occluder device DETAILS OF PROCEDURE: [...] no issues with ambulation Smith Tidwell MD Hydrometer Calibrator of Internal Medicine [facility] Section of Interventional Cardiology Foundation Drill Operator Helper of Structural Heart Disease [address], [address] [place] [address] Facsimile: [phone] Email: [email or web address] [facility]01-23-2025 Surgical operation note* Operative Report - Smith Lopez MD - 09/10/2024 11:06 AM EST PROCEDURE: Intracardiac Echocardiography PFO Closure with a 30mm [place] Cardioform septal occluder Name: Bo Jacob Date: September 10, 2024 STAFF PHYSICIAN: Dr. Smith Tidwell MD ACCESS: 11F RFV superior access, 11F RFV inferior Access DEVICE: 30mm [place] Cardioform septal occluder device DETAILS OF PROCEDURE: [...] no issues with ambulation Smith Tidwell MD Hydrometer Calibrator of Internal Medicine [facility] Section of Interventional Cardiology Foundation Drill Operator Helper of Structural Heart Disease [place] [address] Facsimile: [phone] Email: [email or web address] documented in this encounterWayne Hospital01-14-2025 Telephone encounter Note * Telephone Encounter - Jeanna Pickens RN - 09/01/2024 9:59 AM EST Bo Jennifer Jacob called in to inquire about next steps in scheduling the PFO procedure. She recalls from BLACK that she was told she would be a good candidate for procedure. Jeanna Pickens RN [facility]01-14-2025 Miscellaneous Notes* Telephone Encounter - Jeanna Pickens RN - 09/01/2024 9:59 AM EST Bose Jennifer Jacob called in to inquire about next [...] 08/05/24. Grace Ag MA documented in this encounterWayne Hospital01-13-2025 Evaluation note* Diagnosis Onset Date Resolution [...] female breast chronic October 27, 2024 1:32pm [facility] Work Phone: [phone] Telephone encounter Note* Telephone Encounter - Grace Ag MA - 08/17/2024 1:03 PM EST Patient under the understanding she needs another produce, that will close the whole in her heart. She would like a call back with clarification , patient stated she is not clear what the surgery is called due to being sleepy after surgery on 08/05/24. Grace Ag MA [facility]12-10-2024 Telephone encounter Note* Telephone Encounter - Alondra Hauser - 07/28/2024 8:55 AM EST Patient is scheduled for a BLACK on 08/05. The hospital will call the day before between 2-5pm with your arrival time. You should not eat or drink after midnight the day before the procedure. You will need a highway truck driver when released from the hospital. You should continue to take medications as prescribed the morning of the procedure with just a sip of water unless otherwise instructed. Spoke with Bo Jacob on July 28, 2024. Informed of instructions as stated above. Patient verbalized understanding. Alondra Hauser [facility]12-10-2024 Miscellaneous Notes* Telephone Encounter - Alondra Hauser - 07/28/2024 8:55 AM EST Patient is scheduled for a BLACK on 08/05. The hospital will call the day before between 2-5pm with your arrival time. You should not eat or drink after midnight the day before the procedure. You will need a highway truck driver when released from the hospital. You should continue to take medications as prescribed the morning of the procedure with just a sip of water unless otherwise instructed. Spoke with Bo Jacob on July 28, 2024. Informed of instructions as stated above. Patient verbalized understanding. Alondra Hauser documented in this encounterWayne Hospital12-09-2024 Instructions* Patient Instructions* Ling Harding APRN.CNP - 07/27/2024 10:55 AM EST Images from the original note were not included. Regarding your visit with Nurse Practitioner Ling Harding today at the [facility] we discussed the following: [...] Ling Harding CNP [facility] Nurse Practitioner [place], [place] [address] Office: [phone] Appointments: [phone] Stroke Signs and Symptoms: *Stroke is a [...] DASH-style diet rich in fruits and vegetables (https://www.nhlbi.nih.gov/education/gdkx-grrhgz-yjut) Consider Mediterranean diet supplemented with nuts Smoking [...] of an exercise program by a health care program resident such as a physical therapist or cardiac [...] for their cardiovascular health Adapted from the [place] Heart Association/Cymraes Stroke Association: 2021 Guideline for the Prevention of Stroke in Patients With Stroke and Transient Ischemic Attack documented in this encounterWayne Hospital12-09-2024 [facility]12-09-2024 History of Present illness Narrative* Ling Harding APRN.CNP - 07/27/2024 10:09 AM EST [facility] Established Visit PCP: Loan Magana) [address] [facility] [address] [place] [address] CEREBROVASCULAR HISTORY Bo Jacob is a 68 [...] ICU, she was later [place] [facility] [place] obtained and she was found [...] tremor. Sensation: Grossly intact light touch. Coordination: Gqqarm-wc-ifes without dysmetria bilaterally. Gait: Ambulates easily into [...] with the prior echocardiographic exam performed on 05/24/2020 ([facility]). Positive [...] which included preparing to see the patient, halq-kb-ohew patient care, completing clinical documentation, obtaining and/or reviewing separately obtained history, performing a medically appropriate examination, counseling and educating the patient/family/caregiver, independently interpreting results (not separately reported), and communicating results to the patient/family/caregiver SIGNATURE Ling Harding APRN.BELT CONVEYOR DRIER 07/27/2024 documented in this encounterWayne Hospital12-06-2024 Telephone encounter Note * Telephone Encounter - Yazmin Maravilla RN - 07/24/2024 8:53 AM EST Images from the original note were not included. Alondra Hauser; Cecily Guerrero MD; Smith Lopez MD; Alexis Porter RN (8:28 AM) EO She was scheduled 07/20. I didn't know that it was cancelled. Dr Tdiwell will have to reorder the TEEplease Cecily Guerrero MD You; Smith Lopez MD; Alondra Hauser; Alexis Porter RN2 days ago I have added Alondra and Reid here, they can take it further regarding scheduling BLACK with anesthesiaand will contact her with an available date. Thanks Cecily Guerrero MD, FACP, FAC Cardiovascular Master Certified Rv TechnicianElectric Motor [place] gas operator [facility] Pager: [phone] [facility]12-06-2024 Miscellaneous Notes* Telephone Encounter - Yazmin [...] available date. Thanks Cecily Guerrero MD, FACP, [facility] Cardiovascular Master Certified Rv TechnicianElectric Motor [place] gas operator [facility] Pager: [phone] * Telephone Encounter - Yazmin Maravilla RN - 07/22/2024 8:13 AM EST Pt asks if there is anything she should be doing to get BLACK with anesthesia scheduled? Yazmin Maravilla RN documented in this encounterWayne Hospital12-04-2024 Telephone encounter Note * Telephone Encounter - Yazmin Maravilla RN - 07/22/2024 8:13 AM EST Pt asks if there is anything she should be doing to get BLACK with anesthesia scheduled? Yazmin Maravilla RN [facility]11-20-2024 Telephone encounter Note* Telephone Encounter - Marjan Acosta RN - 07/08/2024 11:25 AM EST MODIFIED JOSE SCORE POST-DISCHARGE Telephone Visit Patient Name: Bo Jacob Today's date: July 08, 2024 Date of discharge: April 23, 2024 Person giving information: Bo Jacob. Relationship to patient: Self. Contact information: [phone] Contact attempt: #1 Patient discharge location: Home Patient current location: Home Presentation to ED or readmission after discharge: No Modified Jose Score: 90 days post discharge: 0 = No symptoms at all. Mortality: No Bo states that she has no residual effects from the stroke whatsoever. She is driving and independent with all activities of daily living. Signature: Marjan Acosta RN July 08, 2024 11:25 AM [facility]11-20-2024 Miscellaneous Notes* Telephone Encounter - Marjan Acosta RN - 07/08/2024 11:25 AM EST MODIFIED JOSE SCORE POST-DISCHARGE Telephone Visit Patient Name: Bo Jacob Today's date: July 08, 2024 Date of discharge: April 23, 2024 Person giving information: Bo Jacob. Relationship to patient: Self. Contact information: [phone] Contact attempt: #1 Patient discharge location: Home Patient current location: Home Presentation to ED or readmission after discharge: No Modified [place] Score: 90 days post discharge: 0 = No symptoms at all. Mortality: No Bo states that she has no residual effects from the stroke whatsoever. She is driving and independent with all activities of daily living. Signature: Marjan Acosta RN July 08, 2024 11:25 AM documented in this encounterWayne Hospital11-12-2024 Telephone encounter Note * Telephone Encounter - Lisa Chau - 06/30/2024 3:44 PM EST Clearance scanned in from surgical associates placed in Dr. Diann hansen to be reviewed. Lisa Chau June 30, 2024 3:44 PM [facility]11-12-2024 Miscellaneous Notes* Telephone Encounter - Lisa Chau - 06/30/2024 3:44 PM EST Clearance scanned in from surgical associates placed in Dr. Diann hansen to be reviewed. Lisa Chau June 30, 2024 3:44 PM documented in this encounterWayne Hospital11-08-2024 Telephone encounter Note * Telephone Encounter - Alondra Hauser - 06/26/2024 10:49 AM EST Patient is scheduled for a BLACK on 07/20. The hospital will call the day before between 2-5pm with your arrival time. You should not eat or drink after midnight the day before the procedure. You will need a highway truck driver when released from the hospital. You should continue to take medications as prescribed the morning of the procedure with just a sip of water unless otherwise instructed. Spoke with Bo Jennifer Jacob on June 26, 2024. Informed of instructions as stated above. Patientverbalized understanding. Alondra Hauser [facility]11-08-2024 Miscellaneous Notes* Telephone Encounter - Alondra Hauser - 06/26/2024 10:49 AM EST Patient is scheduled for a BLACK on 07/20. The hospital will call the day before between 2-5pm with your arrival time. You should not eat or drink after midnight the day before the procedure. You will need a highway truck driver when released from the hospital. You should continue to take medications as prescribed the morning of the procedure with just a sip of water unless otherwise instructed. Spoke with Bo Jacob on June 26, 2024. Informed of instructions as stated above. Patientverbalized understanding. Alondra Hauser documented in this encounterWayne Hospital11-06-2024 [facility]11-06-2024 History of Present illness Narrative* Smith Lopez MD - 06/24/2024 10:51 AM EST Chief Complaint: Patient presents with: CARD New Patient Consult: COMMAND AND CONTROL SPECIALIST REF FOR PFO Bo Jacob is a [...] Follow-up in 6 months Smith Tidwell MD Hydrometer Calibrator of Internal Medicine [facility] Section of Interventional Cardiology Foundation Drill Operator Helper of Structural Heart Disease [address], [address] [place] [address] Facsimile: [phone] Email: [email or web address] documented in this encounterWayne Hospital11-06-2024 Nurse Note* Lashawn Hilliard MA - 06/24/2024 10:09 AM EST Patient denies any cardiac issues or symptoms. [facility]11-06-2024 Nurse Note* Lashawn Hilliard MA - 06/24/2024 10:09 AM EST Patient denies any cardiac issues or symptoms. documented in this encounterWayne Hospital10-22-2024 Instructions* Patient Instructions* Ling Harding APRN.CNP - 06/09/2024 2:08 PM EDT Images from the original note were not included. Regarding your visit with Nurse Practitioner Ling Harding today at the [facility] we discussed the following: PLAN Stop aspirin Continue clopidogrel (Plavix) daily. Refills sent to pharmacy Follow up with cardiology as planned. Consider long-term event monitor if PFO closure not indicated. Ling Harding CNP [facility] Nurse Practitioner [place], [place] [address] Office: [phone] Appointments: [phone] Stroke Signs and Symptoms: *Stroke is a [...] DASH-style diet rich in fruits and vegetables (https://www.nhlbi.nih.gov/education/pvhf-deiacv-dfqx) Consider Mediterranean diet supplemented with nuts Smoking [...] of an exercise program by a health care program resident such as a physical therapist or cardiac [...] for their cardiovascular health Adapted from the [place] Heart Association/Cymraes Stroke Association: 202 Guideline for the Prevention of Stroke in Patients With Stroke and Transient Ischemic Attack documented in this encounterWayne Hospital10-22-2024 History of Present illness Narrative* Ling Harding APRN.CNP - 06/09/2024 1:30 PM EDT [facility] Established Visit PCP: Loan Dias (Debra) [address] [address] [address] CEREBROVASCULAR HISTORY Bo Jacob is a 68 [...] ICU, she was later [place] [facility] [place] obtained and she was found [...] tremor. Sensation: Grossly intact light touch. Coordination: Rrgzrj-fv-urgn without dysmetria bilaterally. Gait: Ambulates easily into [...] (CCF-MODIFIED): Embolic Stroke of Unknown Source Modified [place] Score: Score: 0 IMPRESSION Subacute right MCA [...] which included preparing to see the patient, hxze-qv-sxkc patient care, completing clinical documentation, obtaining and/or reviewing separately obtained history, performing a medically appropriate examination, counseling and educating the patient/family/caregiver, independently interpreting results (not separately reported), and communicating results to the patient/family/caregiver SIGNATURE Ling Harding APRN.CNP 06/09/2024 [facility]2024 [facility]09-11-2024 Telephone encounter Note* Telephone Encounter - Marjan Acosta RN - 04/29/2024 1:16 PM EDT STROKE POST-DISCHARGE CALLBACK Telephone Visit Patient Name: Bo Jacob Today's date: April 29, 2024 Date of discharge: April 23, 2024 Person giving information: Bo Jacob. Relationship to patient: self. Contact information: [phone] Contact attempt: #1 Patient discharge location: home [...] I also talked with her about the secondary art teacher that she is wearing and how that [...] primary care provider as well as her cuff slitter. 4.Follow ups. Bo says she is seeing her primary care provider today, and has an appointment soon with her cuff slitter. She also has an appointment to see Dr. Tidwell about her PFO in June. She was not aware that an appointment had been scheduled for her with stroke neurology clinic. I provided her the details of the appointment, which she appreciated. She denies transportation needs. Signature: Marjan Acosta RN April 29, 2024 1:16 PM [facility]09-11-2024 Miscellaneous Notes* Telephone Encounter - Marjan Acosta RN - 04/29/2024 1:16 PM EDT STROKE POST-DISCHARGE CALLBACK Telephone Visit Patient Name: Bo Jacob Today's date: April 29, 2024 Date of discharge: April 23, 2024 Person giving information: Bo Jacob. Relationship to patient: self. Contact information: [phone] Contact attempt: #1 Patient discharge location: home [...] I also talked with her about the secondary art teacher that she is wearing and how that [...] primary care provider as well as her cuff slitter. 4.Follow ups. Bo says she is seeing her primary care provider today, and has an appointment soon with her cuff slitter. She also has an appointment to see Dr. Tidwell about her PFO in June. She was not aware that an appointment had been scheduled for her with stroke neurology clinic. I provided her the details of the appointment, which she appreciated. She denies transportation needs. Signature: Marjan Acosta RN April 29, 2024 1:16 PM documented in this encounterWayne Hospital09-01-2024 NoteHNO ID: [id number] Author: CRUZ WILKNIS MD Service: ? Author Type: Physician Type: Progress Notes Filed: 04/19/2024 15:50 Note Text: TELESTROKE DOCUMENTATION Name: Bo Jacob : 1955 Referring Site: [facility] Referring Provider: Dr Garcia Last [...] a telestroke. Thank you for contacting the [facility]. I appreciate the opportunity for allowing me to participate in Bo Jennifer Cecil's care. Please feel free to contact me and/or the [facility] at any time if you have any further questions or need additional assistance. Cruz Wilkins MD April 19, 2024 3:28 [facility]09-01-2024 History of Present illness Narrative* Cruz Wilkins MD - 04/19/2024 3:10 PM EDT TELESTROKE DOCUMENTATION Name: Bo Jacob : 1955 Referring Site: [facility] Referring Provider: Dr Garcia Last [...] a telestroke. Thank you for contacting the [facility]. I appreciate the opportunity for allowing me to participate in Bo Jacob's care. Please feel free to contact me and/or the [facility] at any time if you have any further questions or need additional assistance. Cruz Wilkins MD April 19, 2024 3:28 PM documented in this encounterWayne Hospital04-16-2024 Discharge summary Author Raymond Lagos [facility] December 03, 2023 11:52am Note Date/Time December 03, 2023 11: 48am [facility] Medical Records Department [address] [place] [address] Instructions for Home/Discharge Instructions 12/03/23 1148 MR#: [id number] Acct: [id number] Name: BO JACOB Rep #:[id number] : 1955 68 From: Raymond Lagos DO PCP: Dr. Ashley Luna MD Status:REG [facility] Discharge Instructions Diet Discharge Diet: [...] 25 mg PO DAILY Qty: 30 11RF dckeefzuvesz-pgfr-nniqr acid 1 EACH tablet 1 ea PO [...] Care 12/03/23 1152<Electronically signed by Raymond Lagos DO>[facility] CC: Dr. Ashley Luna MD ~ Signed [facility] Work Phone: 1(812) 743-270004-16-2024 History and physical note Author [facility] December 03, 2023 9:57am Note Date/Time December 03, 2023 9:5 7am [facility] Medical Records Department [address] [place], [place] [address] [address] History & Physical Exam 12/03/23 0956 MR#: [id number] Acct: [id number] Name: BO JACOB Rep #:[id number] : 1955 68 From: Raymond Lagos DO PCP: Dr. Ashley Luna MD Status:[facility] Location: [place] [address] History and Physical Date of Admission: 12/03/23 [facility] [address] [place] [address] [address] [place] [address] OFFICE VISIT Date of Service: 11/06/23 MR#: [id number] Acct: [id number] Name: BO JACOB Rep #: [id number] : 1955 Provider: Dr. Raymond Lagos DO Age/Sex: 68/F Location[place] [facility] Status: Signed Intake Vital Signs 09/23/2409:37 11/03/2410:12 [...] 1-2 times per week duration: 15-30 minutes/day frankie/worship: Non-Jainism/Independent seatbelt use: always do you feel safe at home: Yes HPI left knee Details: This documentation accurately reflects the service provided and the decisions made by me, Dr. Raymond Lagos, DO 11/06/23 9040. Part of today?s visit was documented by [ ], acting as scribe. BO JACOB is a 68 year old F here today for a followup on her left knee. Patient notes that she continues to have knee pain. [facility] and was given a home exercise program. [...] signed by Raymond Lagos DO> Date Raymond Quintana Signature: Date (if applicable) CC: ~ I have examined the patient the following changes are noted: Lateral cyst has shrunk in size is much less noticeable and palpable explained to her that this synovial cyst will very possibly come back and I will have a hard time excising it now that it is smaller. 12/03/23956 <Electronically signed by Raymond Lagos DO> Meron Signature (if applicable): CC: Dr. Raymond Lagos DO; Dr. Ashley Luna MD~ Signed [facility] Work Phone: 1(839) 146-960104-16-2024 Procedure [facility] 04-24-2021 NoteHNO ID: [id number] Author: Marisabel Kurtz RN Service: Care Management Author Type: Registered Nurse Type: Care Mgt Progress Note Filed: 04/24/2021 2:59 PM Note Text: CARE MANAGEMENT DISCHARGE NOTE SERVICE DATE: 04/24/2021 SERVICE TIME:2:57pm LOS: 13 days Admission Date: 04/11/2021 DISCHARGE ARRANGEMENT (list agency and phone number) Discharge Arrangement: nursing home facility Was an expedited discharge program used?: No Provider Name: [facility] Phone: [phone] CAREGIVER ASSESSMENT: HANDOFF COMMUNICATION: Handoff to: Primary Care Physician Primary Care Physician Name/Phone: routed TRANSPORTATION ARRANGEMENTS: Transportation Arrangements: Ambulance/[facility] [employer] Agency and Phone #:: [facility] [phone] Date of Trip: 04/24/21 Time of Trip: 1600 Type of Service: BLS Non-emergency Is Patient Medicaid Pending?: No Discussion of financial coverage occurred with: Patient It Software Engineer Location: [facility] Destination: [facility] Financial Care Management Responsibility: None ADDITIONAL CONTACT RESOURCES:avs dc summary Written discharge today per [facility] tcu via cot 2L mmt at 4pm. Final dc order, avs dc summary, updated chart sent via [employer]. Facility willing to accept. Patient and dtr aware, no concerns voiced. Bedside rn will call report. SIGNATURE: Marisabel Kurtz RN PATIENT NAME: Bo Jacob DATE: April 24, 2021 TIME: 2:57 PM PAGER/CONTACT #: [phone] NoteHNO ID: [id number] Author: JUAN Bolivar Service: Care Management Author Type: Doll Eye Setter Type: Care Mgt Progress Note Filed: 04/23/2021 4:20 PM Note Text: CARE MANAGEMENT PROGRESS NOTE SERVICE DATE: 04/23/2021 SERVICE TIME: 4:19 PM LOS: 12 days Needs Prior to Discharge: Ready for Discharge Pt and family have discussed dc plan and the final choice is to transfer to [facility] t[facility]. If pt stable for dc on 04/23 pt can be transported at 4:00. Cm will follow SIGNATURE: JUAN Bolivar PATIENT NAME: Bo Jacob DATE: April 23, 2021 TIME: 4:18 PM PAGER/CONTACT #: [phone] NoteHNO ID: [id number] Author: Ty Pulido MD Service: General Internal Medicine Author Type: Physician Type: Progress Notes Filed: 04/23/2021 5:18 PM Note Text: SUBJECTIVE Patient is down to 2 L on nasal cannula oxygen Daughter is at the bedside Patient is very eager to go back to [facility] does not have any beds Cough [...] will have to consider rehab at the [facility] In any case we decided that the chances of patient going in meeting her in the ICU is very low given that she is positive and he is in the ICU Everyone is in agreement with this plan I discussed with the elementary school social worker Plan of care discussed with: Provider, RN, Patient and Family/Significant Other: Daughter. This note was partially generated using a voice recognition software system and there may be some incorrect words, phrases, spellings or punctuation that were not noted in review before signing.[facility] 04-22-2021 NoteHNO ID: [id number] Author: Ty Pulido MD Service: General Internal [...] the hospital and spoke to the nursing water maintenance supervisor and later spoke to the elementary school social worker I had to conversation with the elementary school social worker who tells me that the transition care unit/rehab does not have any beds. In the acute unit, the hospitalist was not willing to consider transfer and they are also very short on beds This message was conveyed to the patient We will continue to wean down the oxygen I will discussed with the elementary school social worker [facility] Plan of care discussed with: Provider, RN, Patient. This note was partially generated using a voice recognition software system and there may be some incorrect words, phrases, spellings or punctuation that were not noted in review before signing.[facility] 04-21-2021 NoteHNO ID: [id number] Author: Raymond Carmona PA-C Service: Pulmonary Disease Author Type: Physician Sliver Lap Tender Type: Progress Notes Filed: 04/21/2021 12:51 PM Note Text: Attestation signed by Ramirez Groves MD at 04/21/2021 1:57 PM Attending Note I have personally performed a face to face assessment of the patient and have reviewed the PA/DOCUMENT PREPARATION SPECIALIST note. My posada findings include: Subjective: Feels [...] She would like to talk to a senior analysis specialist if possible. Otherwise, she feels like she [...] ORAL DAILY (6 AM) - phenol 1 [place] (CHLORASEPTIC) 1 [facility] MUCOUS MEMBRANE (TOPICAL MOUTH AND THROAT) q 2 H PRN - sodium chloride 0.65 % 2 [place] (AYR, OCEAN) 2 [place] EACH NOSTRIL PRN EXAM BP 115/75 Pulse [...] hours) at 04/21/2021 1243 (more content not included)...[facility]09-03-2021 NoteHNO ID: [id number] Author: Ty Pulido MD Service: General Internal [...] exemestane ? PLAN PT and OT recommend penitentiary facility We are waiting to try and see if he can bring down oxygen requirements and subsequently will consider penitentiary facility She is finishing her Decadron course Reviewed all her medications Discussed with the nursing staff We will make attempts to wean down oxygen Plan of care discussed with: Provider, RN, Patient. This note was partially generated using a voice recognition software system and there may be some incorrect words, phrases, spellings or punctuation that were not noted in review before signing.[facility] 04-20-2021 NoteHNO ID: [id number] Author: Ty Pulido MD Service: General Internal [...] that were not noted in review before signing.[facility] 04-20-2021 NoteHNO ID: [id number] Author: Raymond Moscoso MD Service: Pulmonary Disease [...] ORAL DAILY (6 AM) - phenol 1 [facility] (CHLORASEPTIC) 1 [place] MUCOUS MEMBRANE (TOPICAL MOUTH AND THROAT) q [...] to chair ? Stable for transfer to [facility], Dr Pulido to assume care on the floor ? Updated daughter Travis on the phone Raymond Moscoso MD April 20, 2021 9:50 [facility]09-01-2021 NoteHNO ID: [id number] Author: Raymond Moscoso MD Service: Pulmonary Disease [...] able, PT/OT ? Stable for transfer to [facility], will consult Dr Pulido to assume care. We will see her tomorrow on the floor ? Updated daughter Travis on the phone Raymond Moscoso MD April 19, 2021 10:06 [facility]08-31-2021 NoteHNO ID: [id number] Author: Raymond Moscoso MD Service: Pulmonary Disease [...] Raymond Moscoso MD April 18, 2021 9:19 [facility]08-30-2021 NoteHNO ID: [id number] Author: Dina Manley APRN.BELT CONVEYOR DRIER Service: ? Author Type: Nurse Practitioner Type: Progress Notes Filed: 04/17/2021 1:54 PM Note Text: Clinical Indicators: 04/17/21 Nutrition Therapy Notes Nutrition Assessment: Recommended Malnutrition Diagnosis: Mild Protein-Calorie Malnutrition In the context of: Acute Illness or Injury Based on: Insufficient Energy Intake HPI: 65 year old F admitted for SOB 2/2 COVID PNA. PMHx significant for ER/WI positive, HER2 positive invasive ductal carcinoma in [...] to Determine Other, please specify Dina Manley APRN.[facility]08-30-2021 NoteHNO ID: [id number] Author: Raymond Moscoso MD Service: Pulmonary Disease [...] Raymond Moscoso MD April 17, 2021 9:27 [facility]08-29-2021 NoteHNO ID: [id number] Author: Ramirez Groves MD Service: Critical Care Author Type: Physician Type: Progress Notes Filed: 04/16/2021 12:27 PM Note Text: . Pulmonary AND Critical Care Medicine Follow-up Note Patient Name: Bo Jacob SERVICE DATE: 04/16/2021 ASSESSMENT 1. Acute hypoxic respiratory failure 2. COVID19 pneumonia 3. Possible superimposed bacterial pneumonia 4. Hx invasive ductal breast carcinoma (2020) 5. Hypertension RECOMMENDATIONS ? Still had periods [...] spouse is critically ill and deteriorating at [facility]. ICU Checklist Last Documented/Reviewed time: 04/16/2021 [...] Is Patient Clinically Ready to Transfer to [facility] or SDU?: No Discharge Planning: To [...] Groves MD Pulmonary AND Critical Care Medicine [facility] [place] April 16, 2021 9:14 AM SUBJECTIVE INTERVAL [...] 6 mg (DECADRON) 6 (more content not included)...[facility]08-28-2021 NoteHNO ID: [id number] Author: Ramirez Groves MD Service: Critical Care Author Type: Physician Type: Progress Notes Filed: 04/15/2021 1:04 PM Note Text: . Pulmonary AND Critical Care Medicine Follow-up Note Patient Name: Bo Jacob SERVICE DATE: 04/15/2021 ASSESSMENT 1. Acute hypoxic respiratory failure 2. COVID19 pneumonia 3. Possible superimposed bacterial pneumonia 4. Hx invasive ductal breast carcinoma (2019) 5. Hypertension RECOMMENDATIONS ? Stable on VM [...] Groves MD Pulmonary AND Critical Care Medicine [facility] [place] April 15, 2021 9:53 AM SUBJECTIVE INTERVAL [...] PHYSICAL EXAM: Vital Sign (more content not included)...[facility]08-28-2021 NoteHNO ID: [id number] Author: Popeye Arzola MD Service: Hospital Medicine [...] 0700 to 1700 please page me at [phone]; - nights from 1700 to 0700 please page the Medical Brand Activation Manager at [phone] or the night coverage physician at [phone].[facility] 04-14-2021 NoteHNO ID: [id number] Author: Raisa Bueno RN Service: Care Management Author Type: Registered Nurse Type: Care Mgt Progress Note Filed: 04/14/2021 12:22 PM Note Text: CARE MANAGEMENT PROGRESS NOTE SERVICE DATE: 04/14/2021 SERVICE TIME: 0800 LOS: 3 days [place] of Choice Given: Yes Level of Care Discussed: Alf Facility Provider List: (SNF choices reviewed with patient's daughter) Needs Prior to Discharge: Accepting Facility;To Be Determined;Bed Availability;Discharge Transportation Chart reviewed. Spoke with patient via room phone to discuss pt/ot evaluation: SNF. Patient agrees; aware snf choices limited due to +COVID. Call placed to patient's daughter to review snf choices as patient very sob(bedside RN notified) Preference: [facility]; referral sent. Facility can accept when patient medically stable on 4LNC O2 or less. Covid test within 72 hours of admission. Patient, Dr Castellon, bedside RN informed, VM left for patient's daughter to inform. SIGNATURE: Raisa Bueno RN PATIENT NAME: Bo Jacob DATE: April 14, 2021 TIME: 12:13 PM PAGER/CONTACT #: [phone] NoteHNO ID: [id number] Author: Sukumar Castellon MD Service: ? Author [...] 100 mg in NaCl 0.9% 250 mL Vial-Mate/ADD-[place] 100 mg INTRAVENOUS q 24 HR - [...] 3. Hx invasive ductal carcinoma right breast 2020- Aromasin daily. ? 4. Hypertension- cozaar ? 5.?DVT Prophylaxis- low molecular weight heparin. Above reviewed with the patients daughter Travis [phone] Arzola to assume care of patient as Attending physician effective 0700 04/15/21. SIGNATURE: Sukumar Castellon MD Date: 04/14/2021 Time: 8:33 AM Plan of care discussed with: Provider, RN, Patient. Total time caring/evaluating patient was 30 minutes.[facility]08-26-2021 NoteHNO ID: [id number] Author: Dina Manley APRN.BELT CONVEYOR DRIER Service: ? Author Type: Nurse Practitioner Type: Progress Notes Filed: 04/13/2021 6:38 PM Note Text: Clinical Indicators: 8/26/21 Current BMI: 37.74 kg/m 2 Last Wt: [...] exercise Nutrition consultation as needed Dina Manley APRN.[facility]08-26-2021 NoteHNO ID: [id number] Author: Sukumar Castellon MD Service: ? Author [...] 100 mg in NaCl 0.9% 250 mL Vial-Mate/ADD-[place] 100 mg INTRAVENOUS q 24 HR - [...] Patient. 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 Last discharge within 30 days: No Advance Directive: Current Advance Directive: Health Care Power of Cane Splicer In Chart: No Director Merit System Attempted to Assist with AD Completion: Yes [...] None Has the Patient Been in a Alf Facility in the Past 30 days?: No [...] Psychosocial Needs: None FREEDOM OF CHOICE EXPLAINED: Sibley of Choice Given: No Reason Not Given: Unable to complete with this assessment - revisit POTENTIAL TRANSITION PLANS Home Patient in ICU; awaiting transfer back to [facility]. Spoke with patient's daughter Travis. Patient admitted yesterday from [facility] due to SOB. Spouse in ICU on ventilator. 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 Per daughter, patient very independent. CM to follow for discharge needs. SIGNATURE: Raisa Bueno RN PATIENT NAME: Bo Jacob DATE: April 12, 2021 TIME: 7:55 AM PAGER/CONTACT #: [phone] NoteHNO ID: [id number] Author: Sukumar Castellon MD Service: ? Author [...] 100 mg in NaCl 0.9% 250 mL Vial-Mate/ADD-[place] 100 mg INTRAVENOUS q 24 HR - [...] Patient. Total time caring/evaluating patient was 30 minutes.[facility]08-24-2021 NoteHNO ID: [id number] Author: Yazmin Greene APRN.CNP Service: Critical Care [...] Jacob DATE: April 11, 2021 TIME: 8:09 [facility]08-24-2021 NoteHNO ID: [id number] Author: Rolo Oates MD Service: Pulmonary Disease [...] in the 24 hours ending 04/11/21 1007 ASSOCIATE STORE LEADER (Renal Replacement Therapy): None Can Patient Receive [...] Signature: Rolo Oates Date: 04/11/2021 Time: 10:09 [facility]08-24-2021 NoteHNO ID: [id number] Author: Akshat Julien RN Service: Nursing Author Type: Registered Nurse Type: Nursing Progress Note Filed: 04/15/2021 9:04 AM Note Text: AANDOx3 05/28 back and chest pain from coughing. Gave report to AUTOMATION QA TESTER, patient transferred.[facility]08-24-2021 NoteHNO ID: [id number] Author: Sukumar Castellon MD Service: ? Author [...] 100 mg in NaCl 0.9% 250 mL Vial-Mate/ADD-[place] 100 mg INTRAVENOUS q 24 HR - [...] Patient. Total time caring/evaluating patient was 30 minutes.[facility] Author Wu Augustine [facility] December 21, 2023 11:14am Note Date/Time December 21, 2023 10:44a m [facility] Medical Records Department [address] [place] [address] Emergency Department Summary 12/21/23 MR#: [id number] Acct: [id number] Name: BO JACOB Rep #:[id number] : 1955 68 From: Wu Augustine MD [...] Prior similar symptoms: No Recent [facility] Medical History Alcohol use Ambulates with cane [...] mcg tablet 1 ea PO DAILY vitamin 10/26/20 [History Last Taken 12/02/23] vitamin E 670 [...] Reaction Status Date / Time acetaminophen [From [place]] Allergy Intermediate Rash Verified 12/21/23 10:27 adhesive tape Allergy Intermediate Hives Verified 12/21/23 10:26 hydrocodone [From [place]] Allergy Intermediate Rash Verified 12/21/23 10:27 oxycodone [...] 1-2 times per week duration: 15-30 minutes/day frankie/worship: Non-Jainism/Independent seatbelt use: always do you feel safe [...] 25 mg PO DAILY Qty: 30 11RF afzlgcbnqqnm-zoao-mwsvr acid 1 EACH tablet 1 ea PO [...] Staff] - As Needed Loan Dias NP, COMMAND AND CONTROL SPECIALIST-C [Primary Care Provider] - As Needed Disposition Disposition: Home, Self Care What to do if you have Problems For any increased pain, shortness of breath, bleeding, nausea or vomiting, chestpain, or any unexpected problems, contact your Primary Care Provider. Call [facility] ([phone]) or report to the closest Emergency Room. Call 911 if necessary. 12/21/23 1114 <Electronically signed by Wu Augustine MD> Cosigner Signature (if applicable): CC: COMMAND AND CONTROL SPECIALIST-C Loan Dias ~ Signed [facility] Work Phone: Discharge summary Author Rob Guallpa [facility] Note Date/Time April 04, 2025 4: 01am [facility] System Medical Records Department [address] [facility] [place] [address] Emergency Department Summary 04/04/25 MR#: [id number] Acct: [id number] Name: BO JACOB Rep #:[id number] : 1955 69 From: Rob Guallpa MD [...] and follows with cardiology here at the [facility]. She states her cuff slitter thinks that the pressure she has been having has been chronic pericarditis. [facility] Medical History Pericardial effusion Atrial fibrillation [...] 1-2 times per week duration: 15-30 minutes/day frankie/worship: Non-Jainism/Independent seatbelt use: always do you feel safe [...] % (Auto) 57.9 Lymph % (Auto) 29.4 [place] % (Auto) 6.6 Eos % (Auto) 4.5 [...] As soon as possible Loan Dias NP, COMMAND AND CONTROL SPECIALIST-C [Primary Care Provider] - Print Language: Pashto Disposition Disposition: Home, Self Care What to do if you have Problems For any increased pain, shortness of breath, bleeding, nausea or vomiting, chestpain, or any unexpected problems, contact your Primary Care Provider. Call [facility] ([phone]) or report to the closest Emergency Room. Call 911 if necessary. 04/04/25 0401 <Electronically signed by Rob Guallpa MD> Cosigner Signature (if applicable): CC: COMMAND AND CONTROL SPECIALIST-C Loan Dias ~ Signed [facility] Work Phone: Evaluation note* Diagnosis Onset Date [...] joint, left acute Essential (primary) hypertension chronic [facility] Work Phone: Evaluation note* Diagnosis Onset Date [...] rash resolved Screening for colon cancer a [facility] Work Phone: Evaluation note* Diagnosis Onset Date Resolution Status Breast cancer of lower-inner quadrant of right female breast chronic Musculoskeletal pain chronic Osteopenia chronic Breast cancer of lower-inner quadrant of right female breast chronic [facility] Work Phone: Evaluation note* Diagnosis Onset Date [...] Drug rash resolved Essential (primary) hypertension chronic [facility] Work Phone: Evaluation note* Diagnosis Onset Date [...] lower-inner quadrant of right female breast chronic [facility] Work Phone: Evaluation note* Diagnosis Onset Date Resolution Status Essential (primary) hypertension chronic Breast cancer of lower-inner quadrant of right female breast chronic Musculoskeletal pain chronic Osteopenia chronic Breast cancer of lower-inner quadrant of right female breast chronic Breast cancer of lower-inner quadrant of right female breast chronic Right knee pain noneactive Left breast lump acute [facility] Work Phone: Evaluation note* Diagnosis Onset Date Resolution Status Breast cancer of lower-inner quadrant of right female breast chronic Left knee DJD acute Breast cancer of lower-inner quadrant of right female breast chronic Hyperlipidemia acute Essential (primary) hypertension chronic Essential (primary) hypertension chronic [facility] Work Phone: Evaluation note* Diagnosis Onset Date [...] DJD acute Sciatica of left side acute [facility] Work Phone: Evaluation note* Diagnosis Onset Date [...] cyst, left acute Lateral meniscus tear acute [facility] Work Phone: Evaluation note* Diagnosis Onset Date [...] cyst, left acute Lateral meniscus tear acute [facility] Work Phone: Evaluation note* Diagnosis Onset Date [...] cyst, left acute Lateral meniscus tear acute [facility] Work Phone: Evaluation note* Diagnosis Onset Date [...] Lateral meniscus tear acute Orthopedic aftercare noneact [facility] Work Phone: Evaluation note* Diagnosis Preoperative examination- [...] with cerebral infarction [facility]* Diagnosis Preoperative examination- Primary Preoperative examination, [...] atrial septal defect documented [facility]* Diagnosis Preoperative examination- Primary Preoperative examination, [...] atrial septal defect [facility] Diagnosis Preoperative examination- Primary Preoperative examination, [...] atrial septal defect [facility] Diagnosis Preoperative examination- Primary Preoperative examination, [...] atrial septal [facility] Diagnosis Onset Date Resolution Status Breast cancer of lower-inner quadrant of right female breast chronic Left knee DJD acute Breast cancer of lower-inner quadrant of right female breast chronic Hyperlipidemia acute Essential (primary) hypertension chronic [facility] Work Phone: Evaluation note* Diagnosis Preoperative examination- [...] atrial septal defect [facility] Diagnosis Preoperative examination- Primary Preoperative examination, [...] atrial septal defect documented [facility]* Diagnosis Preoperative examination- Primary Preoperative examination, [...] atrial septal defect documented in this encounter [facility] note* Diagnosis Preoperative examination- Primary Preoperative [...] (HCC) Atrial fibrillation [facility]* Diagnosis Preoperative examination- Primary Preoperative examination, [...] specified cardiac dysrhythmias [facility]* Diagnosis Preoperative examination- Primary Preoperative examination, [...] recorder present- Primary documented in [facility]* Diagnosis Preoperative examination- Primary Preoperative examination, [...] Pain in limb [facility]* Diagnosis Preoperative examination- Primary Preoperative examination, [...] of right ankle documented in this encounter [facility] Discharge instructions Additional Instructions Please follow-up outpatient.[facility] Work Phone: Progress note Author Radha Tan [facility] Note Date/Time June 03, 2025 8 :13am [facility] [address] [place] [address] OFFICE VISIT Date of Service: 06/03/25 MR#: [id number] Acct: [id number] Name: BO JACOB Rep #: [id number] : 1955 Provider: KEYA Tan Age/Sex: 69/F [place] [facility] [place] Signed Intake Vital Signs 04/13/25 15:12 06/03/25 07:58 Height 5 ft 1 in 5 ft 1 in Weight: 183 lb 181 lb 6 oz BMI 34.5 34.2 BP 120/60 142/91 H Blood Pressure Location Rt brachial Position Sitting Respiration 18 16 Pulse 106 H 78 Pulse Source Doppler Temp 97.5 F L 97.8 F Temp Source Temporal Pulse Oximetry (%) 98 98 Oxygen Delivery Method room air room air Intake Visit Reasons: CHEST PRESSURE -HEART CHECKED OUT OKAY Chief Complaint: chest pain Evs Manager Required: No Accompanied by: Self Is patient in pain?: No Allergies adhesive tape Allergy (Intermediate, Verified 06/03/25 07:57) Hives oxycodone Allergy (Intermediate, Verified 06/03/25 07:57) Rash anastrozole Adverse Reaction (Severe, Verified 06/03/25 07:57) joint pain, anxiety, hot flashes Medications ?Medication ?Instructions ?Recorded ?Confirmed ?Type cholecalciferol (vitamin D3) 125 250 mcg PO DAILY 04/09/1106/03/25 History mcg (5,000 unit) tablet (Vitamin D3) hydroxyzine HCl 10 mg tablet 10 mg PO TID-QID PRN anxi ety #90 04/29/24 06/03/25 Rx tabs apixaban 5 mg tablet (Eliquis) 5 mg PO BID 10/08/24 History exemestane 25 mg tablet 25 mg PO DAILY #90 TABLETS 0 12/14/24 06/03/25 Rx ascorbate calcium (vitamin C) 500 500 mg PO QDAY 03/1006/03/25 History mg tablet calcium acetate 667 mg tablet 667 mg PO ONCE 03/10/25 06/03/25 History clonazepam 0.5 mg tablet 0.5 mg PO BID PRN anxiety #6 0 tabs 04/13/25 06/03/25 Rx diltiazem HCl 360 mg 360 mg PO QAM this dose was 04/14/25 06/03/25 History capsule,extended release 24 hr resumed by PCP 04/13/25 (Cardizem CD) pantoprazole 40 mg tablet,delayed 40 mg PO QDAY #90 ta bs 06/03/25 06/03/25 Rx release Have you fallen in the past year?: No [facility] Medical History (Updated 06/03/25 @ 08:12 by Radha Tan NP-C) Pericardial effusion Atrial fibrillation with RVR Acute [...] 1-2 times per week duration: 15-30 minutes/day frankie/worship: Non-Jainism/Independent seatbelt use: always do you feel safe at home: Yes HPI HPI Chief Complaint: chest pain Details: OV 04/12/2025 The patient is a 69-year-old female with a history of atrial fibrillation secondary to PFO closure and pericarditis, now presenting with recurrent chest pressure. She first experienced the symptoms this past September and reports they resolved with the initiation of amiodarone, Cardizem, pantoprazole and colchicine. He discontinued amiodarone after 45 days and reports discontinuing colchicine shortly after this. She reports reducing her Cardizem dose from 360 to 180 mg 3 weeks ago and has since had 5 episodes of tachycardia (alerted by her smart watch) with associated chest pressure that radiates into her neck and back. She was seen in the emergency department 04/06/2025 and EKG was unremarkable. I did reach out to KIRILL Cornelius in cardiology office as patient hasa loop recorder implanted and we will await evaluation of recent findings. She denies any heartburn, nausea, vomiting, or weight loss. The patient is a 69-year-old female presenting with persistent chest pain. The chest pain has been ongoing and is described as radiating from the chest to the neck and through to the back. She reports the pain occurs frequently, and it is not affected by eating, caffeine, or medication. The patient notes the pain as sharp but not extremely so, and it lingers before eventually dissipating. There are no associated symptoms like heartburn, nausea, or vomiting, and she denies any esophageal spasms or food sticking during swallowing. The pain began after undergoing a PFO closure, followed by atrial fibrillation. She has been on Cardizem 360 mg, which initially managed her symptoms until dosing changes were made. There has been no significant weight change, and no NSAIDs are used, only Tylenol if necessary. The patient has a history of breast cancer with radiation on the right breast but denies whole chest radiation. This all began after the cardiac intervention and remains despite returning to higher Cardizem doses. ROS Const Constitutional: Positive for fatigue; No fever(s) or weight change ENT ENT: No difficulty swallowing Gastro GI: No abdominal pain, belching, bloating, change in bowel habits, change in stool character, coffee ground emesis, constipation, cramping, diarrhea, heartburn, difficulty swallowing, feeling full early, excessive flatus, incontinent of stools, Vomiting blood/hematemesis, Blood in stool, loose stools,Black,tarry stools, nausea/dyspepsia, pain with swallowing, vomiting or other Musc Musculoskeletal: Positive for joint pain, back pain, numbness, stiffness, tingling, Arthritis and sciatica Skin Skin: No yellowing of the eye or itchy eyes Neuro Neurology: Positive for numbness and tingling Psych Psychiatric: No anxiety and No depression Endo Endocrine: Positive for fatigue; No weight change Aller/Imm Allergy/Immunologic: No itchy eyes Arjun/Lymp Hematologic/Lymphatic: Positive for easy bruising; No easy bleeding ROS Narrative - Cardiovascular: Reports chest pain radiating to the neck and back; denies moreepisodes of rapid heart rate. - Gastrointestinal: Denies heartburn, nausea, vomiting, dysphagia, or food trapping. - Respiratory: Reports occasional shortness of breath for severe pain episodes. Exam Const General: cooperative, healthy appearing, no acute distress and well developed Nutritional Appearance: average body habitus and well nourished Orientation: alert and oriented x3 HENMT Head: normocephalic Ears: hearing grossly normal bilaterally Mouth: moist mucous membranes Teeth and gingiva: dentition normal Eyes Conjunctivae: conjunctivae normal Sclera: sclerae normal Neck Neck: normal visual inspection, full ROM and trachea midline Resp Effort & Inspection: normal respiratory effort, able to speak in complete sentences and symmetric chest movement Auscultation: Bilateral: Clear to Auscultation GI Inspection: normal to inspection Auscultation: normal bowel sounds Palpation: soft and no hepatosplenomegaly Rectal Exam: deferred Skin General: no rashes or lesions noted and turgor normal Neuro General: patient alert and patient oriented x3 Cranial Nerves: other (CN's grossly intact, non-focal exam) Cognition: normal cognition Speech: speech normal Gait: normal gait Extrem General: normal to inspection (no edema noted) Psych Appearance: grossly normal and well kempt Affect: normal affect Attitude: cooperative Thought Process: normal Assessment and Plan Assessment and Plan (1) Chest pain: Status: Acute Plan: As the chest pain began after PFO closure, it is already under cardiology's oversight, and cardiac causes have been ruled out. However, given the persistentnature and the overlap with possible gastrointestinal symptoms, an upper endoscopy is planned to evaluate for any esophageal involvement such as GERD or esophageal spasm. Upping the patient's pantoprazole from 20 mg to 40 mg daily isthe next step in management. (2) Esophageal reflux: Status: Acute Plan: To assess potential esophageal causes for chest pain and GERD management, the patient's dose of pantoprazole will be increased. The medication is to be taken on an empty stomach in the morning, now at two 20 mg tablets. A follow-up appointment is needed after the upper endoscopy, and results may guide future treatment plans. Medications: New pantoprazole take once a day 30 minutes before first meal 40 mg PO QDAY 90 tabs 1RF Discontinued pantoprazole (Protonix) Discontinued Reason: Order Changed 20 mg PO QDAY 90 tabs 3RF Plan 69-year-old female with a history of breast cancer and PFO closure presenting with persistent chest pain. The pain does not appear to be cardiac-related as per previous evaluations. However, it began after the PFO closure, and there is a need to exclude esophageal spasm or gastroesophageal reflux disease (GERD) as a possible source of her symptomatology. The decision to evaluate the gastrointestinal tract with an upper endoscopy is prudent given her current presentation. Patient Instructions: - Increase pantoprazole dose to 40 mg daily by taking two 20 mg tablets each morning on an empty stomach. - Scheduled for an upper endoscopy to investigate potential esophageal issues. - Do not eat or drink after midnight the night before the procedure. - Arrange for a highway truck driver to help you get home after the procedure since you will be sedated. - Report any significant changes in your condition, especially if symptoms worsen or if new symptoms arise. - Follow-up in office post procedure. Coding Level of Care Code Off vis,est,level 3 Diagnoses Chest pain R07.9 Esophageal reflux K21.9 Clinical Quality Measures Falls Risk Screening/Assistive Devices Have you fallen in the past year?: No 06/03/25 0813 <Electronically signed by Radha LAURA> Date _ Radha LAURA Cosigner Signature: Date (if applicable) CC: ~ [facility] Work Phone: Reason for referral (narrative)* Outpatient Procedure (Routine) - New Request Specialty Diagnoses / Procedures Referred By Jennifer t Referred To Contact [facility] Diagnoses PFO (patent foramen ovale) Procedures ECHO TRANSESOPHAGEAL ECHO TRANSESOPHAG R-T 2D W/PRB IMG ACQUISJ I&R Smith Lopez MD [address] [place] [id number] [facility] [place] [address] [place] [address] Referral ID Status Reason Start Date Expiration Date Visits Requested Visits Authorized [id number] New Request Auto-Generat ed Referral 06/24/2024 06/24/2025 1 1 [facility] for referral (narrative)* Outpatient Procedure (Routine) - New Request Specialty Diagnoses / Procedures Referred By Contobey t Referred To Contact [facility] Diagnoses PFO (patent foramen ovale) Procedures ECHO TRANSESOPHAGEAL ECHO TRANSESOPHAG R-T 2D W/PRB IMG ACQUISJ I&R Vandana Goldstein APRN.CNP [address] [place] [address] [id number] [facility] [address] [place] [address] Referral ID Status Reason Start Date Expiration Date Visits Requested Visits Authorized [id number] New Request Auto-Generat ed Referral 07/23/2024 07/23/2025 1 1 [facility] for referral (narrative)* Outpatient Procedure (Routine) - New Request Specialty Diagnoses / Procedures Referred By Contac t Referred To Contact [facility] Diagnoses PFO (patent foramen ovale) Procedures ECHO TRANSESOPHAGEAL ECHO TRANSESOPHAG R-T 2D W/PRB IMG ACQUISCyril I&R Smith Lopez MD [address] [place] [address] [facility] [place] [address] [place] [address] Referral ID Status Reason Start Date Expiration Date Visits Requested Visits Authorized [id number] New Request Auto-Generat ed Referral 07/26/2024 07/26/2025 1 1 [facility] for referral (narrative)No reason for referral information [facility]WFairfield [facility] Work Phone: Summary Purpose Family History Relationship Condition Age at Onset Recorded Date/T karla mother Cerebrovascular accident (CVA) Unknown Hypertension Unknown grandmother Cerebrovascular accident (CVA) Unknown aunt Cerebrovascular accident (CVA) Unknown father Chronic obstructive pulmonary disease Unk nown brother Malignant neoplasm of bone Unknown Malignant neoplasm of prostate Unknown Advance Directives Date Activated Date Inactivated Comments 09/24/2024 10:38 [...] 2020 10:33am Name of Medical Power of Cane Splicer Derrek Jacob March 29, 2021 10:33am Advance Directives Yes June 27, 2021 10:32am Living Will Yes January 21, 2022 1 1:38am Power of Cane Splicer Yes January 21, 2022 11:38am Advance Directive Response Recorded Date/ Time Advance Directives on File No Marus t 2020 10:33am Name of Medical Power of Cane Splicer Derrek Jacob March 29, 2021 10:33am Name of Medical Power of Cane Splicer TRAVIS HENSLEY January 21, 2022 11:38am Name of Medical Power of Cane Splicer IZABELLA HENSLEY May 16, 2022 2:56pm Advance Directives Yes January 25 7:55pm Living Will Yes May 16, 2022 2:56pm Power of Cane Splicer Yes April 2:56pm Advance Directive Response Recorded Date/ Time Advance Directives Yes January 25 7:55pm Living Will Yes May 16, 2022 2:56pm Power of Cane Splicer Yes April 2:56pm Advance Directive Response Recorded Date/ Time Advance Directives on File No Augus 2020 10:33am Name of Medical Power of Cane Splicer Derrek Jacob March 29, 2021 10:33am Advance Directives Yes January 25 7:55pm Living Will Yes May 16, 2022 2:56pm Power of Cane Splicer Yes April 2:56pm Advance Directive Response Recorded Date/ Time Advance Directives Yes January 25 6:55pm Living Will Yes May 16, 2022 1:56pm Power of Cane Splicer Yes April 1:56pm Advance Directive Response Recorded Date/ Time Advance Directives on File No Augus 2020 9:33am Name of Medical Power of Cane Splicer Derrek Jacob March 29, 2021 9:33am Advance Directives Yes January 25 6:55pm Living Will Yes May 16, 2022 1:56pm Power of Cane Splicer Yes April 1:56pm Advance Directive Response Recorded Date/ Time Advance Directives on File No Augus 2020 10:33am Name of Medical Power of Cane Splicer Derrek Jacob March 29, 2021 10:33am Name of Medical Power of Cane Splicer MARIOA MOISES HENSLEY November 18, 2023 1:12pm Advance Directives Yes January 25 7:55pm Living Will Yes November 18, 2023 1:12pm Power of Cane Splicer Yes November 17 1:12pm Advance Directive Response Recorded Date/ Time Advance Directives on File No Augus t 2020 10:33am Name of Medical Power of Cane Splicer Derrek Jacob March 29, 2021 10:33am Name of Medical Power of Cane Splicer MARIOA DGRIVERA HENSLEY November 18, 2023 1:12pm Name of Medical Power of Cane Splicer Travis Hensley December 12, 2023 12:44pm Advance Directives Yes January 25 7:55pm Living Will Yes December 12, 2023 12:44pm Power of Cane Splicer Yes December 11 12:44pm Advance Directive Response Recorded Date/ Time Advance Directives on File No Augus t 2020 10:33am Name of Medical Power of Cane Splicer Derrek Omerdino March 29, 2021 10:33am Name of Medical Power of Cane Splicer MARIOA DGTR TAIWO HENSLEY November 18, 2023 1:12pm Name of Medical Power of Cane Splicer Travis Hensley December 12, 2023 12:44pm Name of Medical Power of Cane Splicer TRAVIS HENSLEY December 21, 2023 10:32am Advance Directives Yes January 25 7:55pm Living Will Yes December 21, 2023 10 :32am Power of Cane Splicer Yes December 21, 2023 10:32am Date Activated Date Inactivated Comments 04/19/2024 4:04 PM Date Activated Date Inactivated Comments 04/19/2024 4:04 PM 04/23/2024 7:23 PM Question Answer Comments Full Code Order Discussed With: Patient Advance Directive Response Recorded Date/ Time Living Will Yes December 21, 2023 10 :32am Do you have a Healthcare Power of Cane Splicer? Yes December 21, 2023 10:32am Advance Directives on File No Augus t 2020 10:33am Living Will Yes March 29 10:33am Do you have a Healthcare Power of Cane Splicer? Yes March 29, 2021 10:33am Name of Medical Power of Cane Splicer Derrek Omerdino March 29, 2021 10:33am Advance Directives Yes January 25 7:55pm Advance Directive Response Recorded Date/ Time Advance Directives on File No Augus t 2020 10:33am Living Will Yes March 29 10:33am Do you have a Healthcare Power of Cane Splicer? Yes March 29, 2021 10:33am Name of Medical Power of Cane Splicer Derrek Jacob March 29, 2021 10:33am Advance Directives Yes January 25 7:55pm Advance Directive Response Recorded Date/ Time Advance Directives on File No Augus t 2020 10:33am Living Will Yes March 29 10:33am Do you have a Healthcare Power of Cane Splicer? Yes March 29, 2021 10:33am Name of Medical Power of Cane Splicer Derrek Jacob March 29, 2021 10:33am Do you have a Healthcare Power of Cane Splicer? Yes April 04, 2025 1:05am Advance Directives Yes January 25 7:55pm Advance Directive Response Recorded Date/ Time Do you have a Healthcare Power of Cane Splicer? Yes April 04, 2025 1:05am Advance Directives Yes January 25 7:55pm Advance Directive Response Recorded Date/ Time Advance Directives on File No Shilo 2020 9:33am Living Will Yes March 29 9:33am Do you have a Healthcare Power of Cane Splicer? Yes March 29, 2021 9:33am Name of Medical Power of Cane Splicer Derrek Jacob March 29, 2021 9:33am Do you have a Healthcare Power of Cane Splicer? Yes June 18, 2025 12:59pm Name of Medical Power of Cane Splicer daughter June 18, 2025 12:59pm Do you have a Healthcare Power of Cane Splicer? Yes April 04, 2025 12:05am Advance Directives Yes January 25 6:55pm Procedure Findings Note HNO ID: [id number] Author: Cyril Rocha Service: ? Author Type: Anesthesiologist Type: Anesthesia Procedure Notes Filed: 04/22/2020 4:19 PM Note Text: ANESTHESIOLOGY PROCEDURE NOTE Airway General Information Procedure Start Time/Medication Administration: 04/22/2020 12:50 PM Procedure End Time: 04/22/2020 12:51 PM Patient location during procedure: OR Timeout Performed Pre-procedure: timeout performed Consent Obtained: Yes Patient identity confirmed: patient and arm band Staffing Anesthesiologist: Raymond Rocha LAB INSTRUCTOR: Deng Barlow Performed by: LAB INSTRUCTOR Indications and Patient Condition Preoxygenated: yes Patient position: sniffing Manual In-Line Stabilization: Yes Difficult Mask: No Indications for airway management: anesthesia anesthesia circuit Method: asleep Airway Accessory: LMA Final Airway Details Final airway type: supraglottic airway Number of attempts at approach: 1 Final Supraglottic Airway: Size 4 Airway not difficult SIGNATURE: Deng Barlow APRN.CRNA PATIENT NAME: Ther (more content not included)... [...] Essential (primary) hypertension April 13, 2025 3:02pm Chief Complaint Admit Date LEFT KNEE March 10, 2025 1:40 pm ESTABLISH March 12, 2025 11:0 7am chest pressure April 04, 2025 1: 03am Hospital April 08, 2025 9: 19am medication refills April 13, 2025 3: 02pm Pacer Check Remote April 24, 2025 12:42pm CP, PERICARDIAL EFFUSION May 11, 2025 5:51am Pacer Check Remote May 24, 2025 12 :33pm CHEST PRESSURE -HEART CHECKED OUT OKAY O ctober 2024 7:44am 6MO LABS June 09, 2025 1 :01pm ONC/HEM June 09, 2025 1 :15pm Reason for Visit Admit Date Left knee DJD March 10, 2025 1:40 pm Acute pericarditis March 12, 2025 11:0 7am Atrial fibrillation with RVR March 12, 2025 11:07am Chest pain April 08, 2025 9: 19am Anxiety April 13, 2025 3: 02pm Essential (primary) hypertension April 13, 2025 3:02pm Chest pain June 03, 2025 7 :44am Esophageal reflux June 03, 2025 7 :44am Chest pain June 09, 2025 1 :01pm Lumbar spine pain June 09, 2025 1 :01pm Breast cancer of lower-inner quadrant of right female breast June 09, 2025 1:01pm Osteopenia June 09, 2025 1 :01pm Anxiety as acute reaction to gross stres s June 09, 2025 1:15pm Encounter for chemotherapy management Oc tober 2024 1:15pm Encounter for education June 09 1:15pm Rash June 09, 2025 1 :15pm Urinary frequency June 09, 2025 1 :15pm Breast cancer of lower-inner quadrant of right female breast June 09, 2025 1:15pm Osteopenia June 09, 2025 1 :15pm Chest pressure June 09, 2025 1 :15pm Drug rash June 09, 2025 1 :15pm Chief Complaint Admit Date LEFT KNEE March 10, 2025 1:40 pm ESTABLISH March 12, 2025 11:0 7am chest pressure April 04, 2025 1: 03am Hospital FU April 08, 2025 9: 19am medication refills April 13, 2025 3: 02pm Pacer Check Remote April 24, 2025 12:42pm CP, PERICARDIAL EFFUSION May 11, 2025 5:51am Pacer Check Remote May 24, 2025 12 :33pm CHEST PRESSURE -HEART CHECKED OUT OKAY O ctober 2024 7:44am 6MO LABS June 09, 2025 1 :01pm ONC/HEM June 09, 2025 1 :15pm 6 MONTH BREAST June 15, 2025 9 :14am Reason for Visit Admit Date Left knee DJD March 10, 2025 1:40 pm Acute pericarditis March 12, 2025 11:0 7am Atrial fibrillation with RVR March 12, 2025 11:07am Chest pain April 08, 2025 9: 19am Anxiety April 13, 2025 3: 02pm Essential (primary) hypertension April 13, 2025 3:02pm Chest pain June 03, 2025 7 :44am Esophageal reflux June 03, 2025 7 :44am Chest pain June 09, 2025 1 :01pm Lumbar spine pain June 09, 2025 1 :01pm Breast cancer of lower-inner quadrant of right female breast June 09, 2025 1:01pm Osteopenia June 09, 2025 1 :01pm Anxiety as acute reaction to gross stres s June 09, 2025 1:15pm Encounter for chemotherapy management Oc tober 2024 1:15pm Encounter for education June 09 1:15pm Rash June 09, 2025 1 :15pm Urinary frequency June 09, 2025 1 :15pm Breast cancer of lower-inner quadrant of right female breast June 09, 2025 1:15pm Osteopenia June 09, 2025 1 :15pm Chest pressure June 09, 2025 1 :15pm Drug rash June 09, 2025 1 :15pm Breast cancer of lower-inner quadrant of right female breast June 15, 2025 9:14am Chief Complaint Admit Date LEFT KNEE March 10, 2025 1:40 pm ESTABLISH March 12, 2025 11:0 7am chest pressure April 04, 2025 1: 03am Hospital FU April 08, 2025 9: 19am medication refills April 13, 2025 3: 02pm Pacer Check Remote April 24, 2025 12:42pm CP, PERICARDIAL EFFUSION May 11, 2025 5:51am Pacer Check Remote May 24, 2025 12 :33pm CHEST PRESSURE -HEART CHECKED OUT OKAY O ctober 2024 7:44am 6MO LABS June 09, 2025 1 :01pm ONC/HEM June 09, 2025 1 :15pm 6 MONTH BREAST June 15, 2025 9 :14am MID-STERNAL CP, HX BREAST CANCER Novem r 2024 12:48pm 3 M FU/AFIB June 25, 2025 9 :10am Reason for Visit Admit Date Left knee DJD March 10, 2025 1:40 pm Acute pericarditis March 12, 2025 11:0 7am Atrial fibrillation with RVR March 12, 2025 11:07am Chest pain April 08, 2025 9: 19am Anxiety April 13, 2025 3: 02pm Essential (primary) hypertension April 13, 2025 3:02pm Chest pain June 03, 2025 7 :44am Esophageal reflux June 03, 2025 7 :44am Chest pain June 09, 2025 1 :01pm Lumbar spine pain June 09, 2025 1 :01pm Breast cancer of lower-inner quadrant of right female breast June 09, 2025 1:01pm Osteopenia June 09, 2025 1 :01pm Anxiety as acute reaction to gross stres s June 09, 2025 1:15pm Encounter for chemotherapy management Oc tober 2024 1:15pm Encounter for education June 09 1:15pm Rash June 09, 2025 1 :15pm Urinary frequency June 09, 2025 1 :15pm Breast cancer of lower-inner quadrant of right female breast June 09, 2025 1:15pm Osteopenia June 09, 2025 1 :15pm Chest pressure June 09, 2025 1 :15pm Drug rash June 09, 2025 1 :15pm Breast cancer of lower-inner quadrant of right female breast June 15, 2025 9:14am Abdominal pain June 24, 2025 1 0:09am Anxiety June 24, 2025 1 0:09am Change in bowel habits June 24 10:09am Paroxysmal A-fib June 25, 2025 9 :10am Essential (primary) hypertension Novembe r 2024 9:10am Additional Source Comments INFORMATION SOURCE (unrecogn ized section and content) DATE CREATED AUTHOR 03/17/2018 [facility] DATE CREATED AUTHOR AUTHOR'S ORGANIZ ATION 03/17/2018 [facility] DATE CREATED AUTHOR AUTHOR'S ORGANIZ ATION 05/30/2018 [facility] DATE CREATED AUTHOR AUTHOR'S ORGANIZ ATION 06/10/2020 [facility] DATE CREATED AUTHOR AUTHOR'S ORGANIZ ATION 04/25/2021 [facility] DATE CREATED AUTHOR AUTHOR'S ORGANIZ ATION 04/19/2024 [facility] DATE CREATED AUTHOR AUTHOR'S ORGANIZ ATION 05/23/2025 [facility] DATE CREATED AUTHOR AUTHOR'S ORGANIZ ATION 06/30/2025 [facility] Goals (unrecognized section and content) Goals [...] Member Role Status Dates Loan Dias NP, COMMAND AND CONTROL SPECIALIST-C Primary Care Provider Active Dr. João Kong DO Attending Provider Active Team Status: Inactive Member Role Status Dates Loan Dias NP, COMMAND AND CONTROL SPECIALIST-C Primary Care Provider, Referr ing Provider Active Dr. Antonia Escalante MD Attending Provider Active Team Status: Inactive Member Role Status Dates Loan Dias COMMAND AND CONTROL SPECIALIST, COMMAND AND CONTROL SPECIALIST-C Primary Care Provider, Referr ing Provider Active Ashli ROY, PA Attending Provider Active Team Status: Inactive Member Role Status Dates Loan Dias NP, COMMAND AND CONTROL SPECIALIST-C Primary Care Provider, Referr ing Provider Active Dr. Raymond Lagos DO Attending Provider Active Team Status: Inactive Member Role Status Dates Loan Dias NP, COMMAND AND CONTROL SPECIALIST-C Primary Care Provider Active Dr. Nico Hook MD Attending Provider Active Team Status: Active Member Role Status Dates Dr. Raymond Lagos DO Attending Provider, Other Prov ider Active Dr. Ashley Luna MD Primary Care Provider, Referrin g Provider Active Team Status: Inactive Member Role Status Dates Loan Dias NP, COMMAND AND CONTROL SPECIALIST-C Primary Care Pr ovider, Attending Provider, Referring Provider Active Team Status: Active Member Role Status Dates Dr. Antonia Escalante MD Attending Provider Active Dr. Yogesh Haque MD Referring Provider Active Dr. João Luann , DO Other Provider Active Loan Dias COMMAND AND CONTROL SPECIALIST, COMMAND AND CONTROL SPECIALIST-C Primary Care Provider Active Team Status: Inactive Member Role Status Dates Loan Dias COMMAND AND CONTROL SPECIALIST, COMMAND AND CONTROL SPECIALIST-C Primary Care Provider Active Ashli Rosado PA, PA Attending Provider Active Team Status: Inactive Member Role Status Dates Loan Dias COMMAND AND CONTROL SPECIALIST, COMMAND AND CONTROL SPECIALIST-C Primary Care Provider Active Dr. Raymond Lagos DO Attending Provider, Referring Provider Active Team Status: Inactive Member Role Status Dates Loan Dias COMMAND AND CONTROL SPECIALIST, COMMAND AND CONTROL SPECIALIST-C Primary Care Provider Active Dr. Antonia Escalante MD Attending Provider, Referrin g Provider Active Team Status: Inactive Member Role Status Dates Dr. Raymond Lagos , Attending Provider Active Dr. Ashley Luna MD Primary Care Provider, Referrin g Provider Active Team Status: Active Member Role Status Dates Loan Dias COMMAND AND CONTROL SPECIALIST, COMMAND AND CONTROL SPECIALIST-C Primary Care Provider Active Team Status: Inactive Member Role Status Dates Loan Dias COMMAND AND CONTROL SPECIALIST, COMMAND AND CONTROL SPECIALIST-C Primary Care Provider, Referr ing Provider Active Dr. João Kong DO Attending Provider Active Team Status: Inactive Member Role Status Dates Loan Dias COMMAND AND CONTROL SPECIALIST, COMMAND AND CONTROL SPECIALIST-C Primary Care Provider, Referr ing Provider Active Verónica Lopez COMMAND AND CONTROL SPECIALIST, COMMAND AND CONTROL SPECIALIST-C Attending Provider Active Team Status: Inactive Member Role Status Dates Loan Dias COMMAND AND CONTROL SPECIALIST, COMMAND AND CONTROL SPECIALIST-C Primary Care Provider, Referr ing Provider Active Dr. Nico Hook MD Attending Provider Active Team Status: Active Member Role Status Dates Loan Dias COMMAND AND CONTROL SPECIALIST, COMMAND AND CONTROL SPECIALIST-C Primary Care Provider Active Lisa Harper Attending Provider Active Team Status: Active Member Role Status Dates Loan Dias COMMAND AND CONTROL SPECIALIST, COMMAND AND CONTROL SPECIALIST-C Primary Care Provider Active Dr. Nico Hook MD Attending Provider Active Team Status: Inactive Member Role Status Dates Loan Dias COMMAND AND CONTROL SPECIALIST, COMMAND AND CONTROL SPECIALIST-C Primary Care Provider Active Dr. Nico Hook MD Attending Provider, Referring Pro vider Active Team Status: Inactive Member Role Status Dates Loan Dias COMMAND AND CONTROL SPECIALIST, COMMAND AND CONTROL SPECIALIST-C Primary Care Provider Active Verónica Lopez NP, COMMAND AND CONTROL SPECIALIST-C Attending Provider, Referring Provider Active Team Status: Inactive Member Role Status Dates Loan Dias COMMAND AND CONTROL SPECIALIST, COMMAND AND CONTROL SPECIALIST-C Primary Care Provider, Referr ing Provider Active Dr. Dia Tobin MD Attending Provider Active Team Status: Inactive Member Role Status Dates Loan Dias COMMAND AND CONTROL SPECIALIST, COMMAND AND CONTROL SPECIALIST-C Primary Care Provider Active Dr. Dia Tobin MD Attending Provider, Referring Provider Active Team Status: Inactive Member Role Status Dates Loan Dias COMMAND AND CONTROL SPECIALIST, COMMAND AND CONTROL SPECIALIST-C Primary Care Provider, Attend ing Provider Active Team Status: Inactive Member Role Status Dates Loan Dias COMMAND AND CONTROL SPECIALIST, COMMAND AND CONTROL SPECIALIST-C Primary Care Provider Active Dr. Matthew Fajardo MD Emergency Provider Active Team Status: Inactive Member Role Status Dates Loan Dias COMMAND AND CONTROL SPECIALIST, COMMAND AND CONTROL SPECIALIST-C Primary Care Provider Active Dr. Matthew Fajardo MD Attending Provider, Emergency Pro vider Active Team Status: Inactive Member Role Status Dates Loan Dias COMMAND AND CONTROL SPECIALIST, COMMAND AND CONTROL SPECIALIST-C Primary Care Provider Active Dr. Wu Augustine MD Emergency Provider Active Polish Compounder Relationship Specialty Start Date End Date Loan Dias, [employer] [address] [place] [address] PCP - General Family Medicine 05/18/17 Polish Compounder Relationship Specialty Start Date End Date Loan Dias, [employer] [address] [place] [address] PCP - General Family Medicine 05/18/17 Polish Compounder Relationship Specialty Start Date End Date Loan Dias, [employer] [address] [place] [address] PCP - General Family Medicine 05/18/17 Polish Compounder Relationship Specialty Start Date End Date Loan Dias, [employer] [address] [place] [address] PCP - General Family Medicine 05/18/17 Polish Compounder Relationship Specialty Start Date End Date Loan Dias, [employer] [address] [place] [address] PCP - General Family Medicine 05/18/17 Polish Compounder Relationship Specialty Start Date End Date Loan Dias, [employer] [address] [place] [address] PCP - General Family Medicine 05/18/17 Polish Compounder Relationship Specialty Start Date End Date Loan Dias, [employer] [address] [place], [place] [phone] PCP - General Family Medicine 05/18/17 Polish Compounder Relationship Specialty Start Date End Date Loan Dias, [employer] [address] [place], [place] [phone] PCP - General Family Medicine 05/18/17 Polish Compounder Relationship Specialty Start Date End Date Loan Dias, [employer] [address] [place] [address] PCP - General Family Medicine 05/18/17 Polish Compounder Relationship Specialty Start Date End Date Loan Dias, [employer] [address] [place] [address] PCP - General Family Medicine 05/18/17 Polish Compounder Relationship Specialty Start Date End Date Loan Dias, [employer] [address] [facility] [place] [phone] PCP - General Family Medicine 05/18/17 Polish Compounder Relationship Specialty Start Date End Date Loan Dias, [employer] [address] [place], [place] [phone] PCP - General Family Medicine 05/18/17 Polish Compounder Relationship Specialty Start Date End Date Loan Dias, [employer] [address] [place], [place] [phone] PCP - General Family Medicine 05/18/17 Polish Compounder Relationship Specialty Start Date End Date Loan Dias, [employer] [address] [place], [place] [phone] PCP - General Family Medicine 05/18/17 Polish Compounder Relationship Specialty Start Date End Date Loan Dias, [employer] [address] [place], [place] [phone] PCP - General Family Medicine 05/18/17 Polish Compounder Relationship Specialty Start Date End Date Loan Dias, [employer] [address] [place], [place] [phone] PCP - General Family Medicine 05/18/17 Polish Compounder Relationship Specialty Start Date End Date Loan Dias, [employer] [address] [place], [place] [phone] PCP - General Family Medicine 05/18/17 Team Status: Inactive Member Role Status Dates Loan Dias NP, COMMAND AND CONTROL SPECIALIST-C Primary Care Provider Active Start: August 31, 2024 End: August 31, 2024 Loan Dias NP, COMMAND AND CONTROL SPECIALIST-C Referring Provider Active Start: August 31, 2024 End: August 31, 2024 Dr. Raymond Lagos DO Attending Provider Active Start: August 31, 2024 End: August 31, 2024 Team Status: Inactive Member Role Status Dates Loan Dias NP, COMMAND AND CONTROL SPECIALIST-C Primary Care Provider Active Start: August 31, 2024 End: August 31, 2024 Dr. Nico Hook MD Attending Provider Active S tart: August 31, 2024 End: August 31, 2024 Team Status: Inactive Member Role Status Dates Loan Dias NP, COMMAND AND CONTROL SPECIALIST-C Primary Care Provider Active Start: September 21, 2024 End: September 21, 2024 Loan Dias COMMAND AND CONTROL SPECIALIST, COMMAND AND CONTROL SPECIALIST-C Referring Provider Active Start: September 21, 2024 End: September 21, 2024 Verónica Lopez COMMAND AND CONTROL SPECIALIST, COMMAND AND CONTROL SPECIALIST-C Attending Provider Active Start: September 21, 2024 End: September 21, 2024 Team Status: Active Member Role Status Dates Dr. Antonia Escalante MD Attending Provider Active Start: September 21, 2024 Dr. Yogesh Haque MD Referring Provider Active Start: September 21, 2024 Dr. João Kong DO Other Provider Active Sta rt: September 21, 2024 Loan Dias COMMAND AND CONTROL SPECIALIST, COMMAND AND CONTROL SPECIALIST-C Primary Care Provider Active Start: September 21, 2024 Team Status: Inactive Member Role Status Dates Loan Dias COMMAND AND CONTROL SPECIALIST, COMMAND AND CONTROL SPECIALIST-C Primary Care Provider Active Start: October 08, 2024 End: October 08, 2024 Loan Dias COMMAND AND CONTROL SPECIALIST, COMMAND AND CONTROL SPECIALIST-C Attending Provider Active Start: October 08, 2024 End: October 08, 2024 Loan Dias COMMAND AND CONTROL SPECIALIST, COMMAND AND CONTROL SPECIALIST-C Referring Provider Active Start: October 08, 2024 End: October 08, 2024 Team Status: Inactive Member Role Status Dates Loan Dias COMMAND AND CONTROL SPECIALIST, COMMAND AND CONTROL SPECIALIST-C Primary Care Provider Active Start: October 27, 2024 End: October 27, 2024 Dr. Mariajose Barclay MD Attending Provider Active Start: October 27, 2024 End: October 27, 2024 Dr. Mariajose Barclay MD Referring Provider Active Start: October 27, 2024 End: October 27, 2024 Team Status: Inactive Member Role Status Dates Loan Dias COMMAND AND CONTROL SPECIALIST, COMMAND AND CONTROL SPECIALIST-C Primary Care Provider Active Start: October 27, 2024 End: October 27, 2024 Loan Dias COMMAND AND CONTROL SPECIALIST, COMMAND AND CONTROL SPECIALIST-C Referring Provider Active Start: October 27, 2024 End: October 27, 2024 Dr. João Kong DO Attending Provider Active Start: October 27, 2024 End: October 27, 2024 Team Status: Active Member Role Status Dates Loan Dias COMMAND AND CONTROL SPECIALIST, COMMAND AND CONTROL SPECIALIST-C Primary Care Provider Active Start: October 31, 2024 Dr. Antonia Escalante MD Attending Provider Active Start: October 31, 2024 Dr. Antonia Escalante MD Referring Provider Active Start: October 31, 2024 Team Status: Active Member Role Status Dates Loan Dias COMMAND AND CONTROL SPECIALIST, COMMAND AND CONTROL SPECIALIST-C Primary Care Provider Active Start: November 03, 2024 Dr. Antonia Escalante MD Attending Provider Active Start: November 03, 2024 Dr. Antonia Escalante MD Referring Provider Active Start: November 03, 2024 Team Status: Inactive Member Role Status Dates Loan Dias COMMAND AND CONTROL SPECIALIST, COMMAND AND CONTROL SPECIALIST-C Primary Care Provider Active Start: October 31, 2024 End: October 31, 2024 Dr. Antonia Escalante MD Attending Provider Active Start: October 31, 2024 End: October 31, 2024 Dr. Antonia Escalante MD Referring Provider Active Start: October 31, 2024 End: October 31, 2024 Team Status: Inactive Member Role Status Dates Loan Dias COMMAND AND CONTROL SPECIALIST, COMMAND AND CONTROL SPECIALIST-C Primary Care Provider Active Start: November 03, 2024 End: November 03, 2024 Dr. Antonia Escalante MD Attending Provider Active Start: November 03, 2024 End: November 03, 2024 Dr. Antonia Escalante MD Referring Provider Active Start: November 03, 2024 End: November 03, 2024 Polish Compounder Relationship Specialty Start Date End Date Loan Di[employer], [employer] [address] [place] [phone] PCP - General Family Medicine 05/18/17 Polish Compounder Relationship Specialty Start Date End Date Loan Dias [employer] [address] [place] [address] PCP - General Family Medicine 05/18/17 Team Status: Active Member Role/Relationship Status Dates Loan Dias COMMAND AND CONTROL SPECIALIST, COMMAND AND CONTROL SPECIALIST-C Primary Care Provider Active Team Status: Inactive Member Role/Relationship Status Dates Loan Dias COMMAND AND CONTROL SPECIALIST, COMMAND AND CONTROL SPECIALIST-C Primary Care Provider Active Start: December 14, 2024 End: December 14, 2024 Loan Dias COMMAND AND CONTROL SPECIALIST, COMMAND AND CONTROL SPECIALIST-C Referring Provider Active Start: December 14, 2024 End: December 14, 2024 Verónica Lopez COMMAND AND CONTROL SPECIALIST, COMMAND AND CONTROL SPECIALIST-C Attending Provider Active Start: December 14, 2024 End: December 14, 2024 Team Status: Active Member Role/Relationship Status Dates Dr. Antonia Escalante MD Attending Provider Active Start: December 14, 2024 Dr. Yogesh Haque MD Referring Provider Active Start: December 14, 2024 Dr. João Kong DO Other Provider Active Sta rt: December 14, 2024 Loan Dias COMMAND AND CONTROL SPECIALIST, COMMAND AND CONTROL SPECIALIST-C Primary Care Provider Active Start: December 14, 2024 Team Status: Inactive Member Role/Relationship Status Dates Loan Dias COMMAND AND CONTROL SPECIALIST, COMMAND AND CONTROL SPECIALIST-C Primary Care Provider Active Start: March 10, 2025 End: March 10, 2025 Loan Dias COMMAND AND CONTROL SPECIALIST, COMMAND AND CONTROL SPECIALIST-C Referring Provider Active Start: March 10, 2025 End: March 10, 2025 Dr. Raymond Lagos DO Attending Provider Active Start: March 10, 2025 End: March 10, 2025 Team Status: Inactive Member Role/Relationship Status Dates Loan Dias COMMAND AND CONTROL SPECIALIST, COMMAND AND CONTROL SPECIALIST-C Primary Care Provider Active Start: March 12, 2025 End: March 12, 2025 Loan Dias COMMAND AND CONTROL SPECIALIST, COMMAND AND CONTROL SPECIALIST-C Referring Provider Active Start: March 12, 2025 End: March 12, 2025 Dr. Hossein Josue MD Attending Provider Active Start: March 12, 2025 End: March 12, 2025 Team Status: Inactive Member Role/Relationship Status Dates Loan Dias COMMAND AND CONTROL SPECIALIST, COMMAND AND CONTROL SPECIALIST-C Primary Care Provider Active Start: April 04, 2025 End: April 04, 2025 Dr. Rob Guallpa MD Emergency Provider Active Start: April 04, 2025 End: April 04, 2025 Polish Compounder Relationship Specialty Start Date End Date Loan Dias, [employer] [address] [address] PCP - General Family Medicine 05/18/17 Team Status: Inactive Member Role/Relationship Status Dates Loan Dias COMMAND AND CONTROL SPECIALIST, COMMAND AND CONTROL SPECIALIST-C Primary Care Provider Active Start: April 08, 2025 End: April 08, 2025 Loan Dias COMMAND AND CONTROL SPECIALIST, COMMAND AND CONTROL SPECIALIST-C Referring Provider Active Start: April 08, 2025 End: April 08, 2025 Radha Tan NP-C Attending Provider Active Start: April 08, 2025 End: April 08, 2025 Team Status: Inactive Member Role/Relationship Status Dates Loan Dias COMMAND AND CONTROL SPECIALIST, COMMAND AND CONTROL SPECIALIST-C Primary Care Provider Active Start: March 10, 2025 End: March 10, 2025 Loan Dias COMMAND AND CONTROL SPECIALIST, COMMAND AND CONTROL SPECIALIST-C Referring Provider Active Start: March 10, 2025 End: March 10, 2025 Dr. Raymond Lagos DO Attending Provider Active Start: March 10, 2025 End: March 10, 2025 Team Status: Inactive Member Role/Relationship Status Dates Loan Arun COMMAND AND CONTROL SPECIALIST, COMMAND AND CONTROL SPECIALIST-C Primary Care Provider Active Start: March 12, 2025 End: March 12, 2025 Loan Arun COMMAND AND CONTROL SPECIALIST, COMMAND AND CONTROL SPECIALIST-C Referring Provider Active Start: March 12, 2025 End: March 12, 2025 Dr. Hossein Josue MD Attending Provider Active Start: March 12, 2025 End: March 12, 2025 Team Status: Inactive Member Role/Relationship Status Dates Loan Dias COMMAND AND CONTROL SPECIALIST, COMMAND AND CONTROL SPECIALIST-C Primary Care Provider Active Start: April 04, 2025 End: April 04, 2025 Dr. Rob Guallpa MD Attending Provider Active Start: April 04, 2025 End: April 04, 2025 Dr. Rob Guallpa MD Emergency Provider Active Start: April 04, 2025 End: April 04, 2025 Team Status: Inactive Member Role/Relationship Status Dates Loan Dias COMMAND AND CONTROL SPECIALIST, COMMAND AND CONTROL SPECIALIST-C Primary Care Provider Active Start: April 08, 2025 End: April 08, 2025 Loan Dias COMMAND AND CONTROL SPECIALIST, COMMAND AND CONTROL SPECIALIST-C Referring Provider Active Start: April 08, 2025 End: April 08, 2025 Radha Tan NP-C Attending Provider Active Start: April 08, 2025 End: April 08, 2025 Team Status: Inactive Member Role/Relationship Status Dates Loan Dias COMMAND AND CONTROL SPECIALIST, COMMAND AND CONTROL SPECIALIST-C Primary Care Provider Active Start: April 13, 2025 End: April 13, 2025 Loanaruna Dias COMMAND AND CONTROL SPECIALIST, COMMAND AND CONTROL SPECIALIST-C Attending Provider Active Start: April 13, 2025 End: April 13, 2025 Loan Arun COMMAND AND CONTROL SPECIALIST, COMMAND AND CONTROL SPECIALIST-C Referring Provider Active Start: April 13, 2025 End: April 13, 2025 Team Status: Inactive Member Role/Relationship Status Dates [employer] COMMAND AND CONTROL SPECIALIST, COMMAND AND CONTROL SPECIALIST-C Primary Care Provider Active Start: April 24, 2025 End: April 24, 2025 Dr. Nico Hook MD Attending Provider Active S tart: April 24, 2025 End: April 24, 2025 Team Status: Active Member Role/Relationship Status Dates [employer] COMMAND AND CONTROL SPECIALIST, COMMAND AND CONTROL SPECIALIST-C Primary care physician Active Team Status: Inactive Member Role/Relationship Status Dates [employer] COMMAND AND CONTROL SPECIALIST, COMMAND AND CONTROL SPECIALIST-C Primary care physician Active Start: March 10, 2025 End: March 10, 2025 [employer] COMMAND AND CONTROL SPECIALIST, COMMAND AND CONTROL SPECIALIST-C Referring Provider Active Start: March 10, 2025 End: March 10, 2025 Dr. Raymond Lagos DO Attending physician Active Start: March 10, 2025 End: March 10, 2025 Team Status: Inactive Member Role/Relationship Status Dates [employer] COMMAND AND CONTROL SPECIALIST, COMMAND AND CONTROL SPECIALIST-C Primary care physician Active Start: March 12, 2025 End: March 12, 2025 [employer] COMMAND AND CONTROL SPECIALIST, COMMAND AND CONTROL SPECIALIST-C Referring Provider Active Start: March 12, 2025 End: March 12, 2025 Dr. Hossein Josue MD Attending physician Active Start: March 12, 2025 End: March 12, 2025 Team Status: Inactive Member Role/Relationship Status Dates [employer] COMMAND AND CONTROL SPECIALIST, COMMAND AND CONTROL SPECIALIST-C Primary care physician Active Start: April 04, 2025 End: April 04, 2025 Dr. Rob Guallpa MD Attending physician Active Start: April 04, 2025 End: April 04, 2025 Dr. Rob Guallpa MD Emergency Depart ment Physician Active Start: April 04, 2025 End: April 04, 2025 Team Status: Inactive Member Role/Relationship Status Dates [employer] COMMAND AND CONTROL SPECIALIST, COMMAND AND CONTROL SPECIALIST-C Primary care physician Active Start: April 08, 2025 End: April 08, 2025 [employer] COMMAND AND CONTROL SPECIALIST, COMMAND AND CONTROL SPECIALIST-C Referring Provider Active Start: April 08, 2025 End: April 08, 2025 Radha Tan NP-C Attending physician Active Start: April 08, 2025 End: April 08, 2025 Team Status: Inactive Member Role/Relationship Status Dates [employer] COMMAND AND CONTROL SPECIALIST, COMMAND AND CONTROL SPECIALIST-C Primary care physician Active Start: April 13, 2025 End: April 13, 2025 [employer] COMMAND AND CONTROL SPECIALIST, COMMAND AND CONTROL SPECIALIST-C Attending physician Active Start: April 13, 2025 End: April 13, 2025 [employer] COMMAND AND CONTROL SPECIALIST, COMMAND AND CONTROL SPECIALIST-C Referring Provider Active Start: April 13, 2025 End: April 13, 2025 Team Status: Inactive Member Role/Relationship Status Dates [employer] COMMAND AND CONTROL SPECIALIST, COMMAND AND CONTROL SPECIALIST-C Primary care physician Active Start: April 24, 2025 End: April 24, 2025 Dr. Nico Hook MD Attending physician Active Start: April 24, 2025 End: April 24, 2025 Team Status: Inactive Member Role/Relationship Status Dates [employer] COMMAND AND CONTROL SPECIALIST, COMMAND AND CONTROL SPECIALIST-C Primary care physician Active Start: May 11, 2025 End: May 11, 2025 Ashli Rosado PA, PA Attending physician Active Start: May 11, 2025 End: May 11, 2025 Ashli Rosado PA, PA Referring Provider Active Start: May 11, 2025 End: May 11, 2025 Team Status: Active Member Role/Relationship Status Dates [employer] COMMAND AND CONTROL SPECIALIST, COMMAND AND CONTROL SPECIALIST-C Primary care physician Active Start: May 11, 2025 Dr. Nico Hook MD Attending physician Active Start: May 11, 2025 Team Status: Inactive Member Role/Relationship Status Dates [employer] COMMAND AND CONTROL SPECIALIST, COMMAND AND CONTROL SPECIALIST-C Primary care physician Active Start: May 24, 2025 End: May 24, 2025 Dr. Nico Hook MD Attending physician Active Start: May 24, 2025 End: May 24, 2025 Team Status: Inactive Member Role/Relationship Status Dates [employer] COMMAND AND CONTROL SPECIALIST, COMMAND AND CONTROL SPECIALIST-C Primary care physician Active Start: June 03, 2025 End: June 03, 2025 [employer] COMMAND AND CONTROL SPECIALIST, COMMAND AND CONTROL SPECIALIST-C Referring Provider Active Start: June 03, 2025 End: June 03, 2025 Radha Tan NP-C Attending physician Active Start: June 03, 2025 End: June 03, 2025 Team Status: Inactive Member Role/Relationship Status Dates [employer] COMMAND AND CONTROL SPECIALIST, COMMAND AND CONTROL SPECIALIST-C Primary care physician Active Start: June 09, 2025 End: June 09, 2025 [employer] COMMAND AND CONTROL SPECIALIST, COMMAND AND CONTROL SPECIALIST-C Referring Provider Active Start: June 09, 2025 End: June 09, 2025 Verónica Lopez COMMAND AND CONTROL SPECIALIST, COMMAND AND CONTROL SPECIALIST-C Attending physician Active Start: June 09, 2025 End: June 09, 2025 Team Status: Active Member Role/Relationship Status Dates Dr. Antonia Escalante MD Attending physician Active Start: June 09, 2025 Dr. Yogesh Haque MD Referring Provider Active Start: June 09, 2025 Dr. João Kong DO Nurse Practitioner Active Start: June 09, 2025 [employer] COMMAND AND CONTROL SPECIALIST, COMMAND AND CONTROL SPECIALIST-C Primary care physician Active Start: June 09, 2025 Verónicaaruna Lopez COMMAND AND CONTROL SPECIALIST, COMMAND AND CONTROL SPECIALIST-C Nurse Practitioner Active Start: June 09, 2025 Team Status: Inactive Member Role/Relationship Status Dates [employer] COMMAND AND CONTROL SPECIALIST, COMMAND AND CONTROL SPECIALIST-C Primary care physician Active Start: June 15, 2025 End: June 15, 2025 Dr. João Kong DO Attending physician Active Start: June 15, 2025 End: June 15, 2025 Team Status: Inactive Member Role/Relationship Status Dates [employer] COMMAND AND CONTROL SPECIALIST, COMMAND AND CONTROL SPECIALIST-C Primary care physician Active Start: June 22, 2025 End: June 22, 2025 Verónica Lopez COMMAND AND CONTROL SPECIALIST, COMMAND AND CONTROL SPECIALIST-C Attending physician Active Start: June 22, 2025 End: June 22, 2025 Verónica John COMMAND AND CONTROL SPECIALIST, COMMAND AND CONTROL SPECIALIST-C Referring Provider Active Start: June 22, 2025 End: June 22, 2025 Team Status: Inactive Member Role/Relationship Status Dates [employer] COMMAND AND CONTROL SPECIALIST, COMMAND AND CONTROL SPECIALIST-C Primary care physician Active Start: June 24, 2025 End: June 24, 2025 Loan Arun COMMAND AND CONTROL SPECIALIST, COMMAND AND CONTROL SPECIALIST-C Referring Provider Active Start: June 24, 2025 End: June 24, 2025 Dr. Vern Lott DO Attending physician Active Start: June 24, 2025 End: June 24, 2025 Team Status: Active Member Role/Relationship Status Dates [employer] COMMAND AND CONTROL SPECIALIST, COMMAND AND CONTROL SPECIALIST-C Primary care physician Active Start: June 24, 2025 [employer] COMMAND AND CONTROL SPECIALIST, COMMAND AND CONTROL SPECIALIST-C Referring Provider Active Start: June 24, 2025 Dr. Vern Lott DO Attending physician Active Start: June 24, 2025 Dr. Vern Lott DO Nurse Practitioner Active Start: June 24, 2025 Team Status: Inactive Member Role/Relationship Status Dates [employer] COMMAND AND CONTROL SPECIALIST, COMMAND AND CONTROL SPECIALIST-C Primary care physician Active Start: June 25, 2025 End: June 25, 2025 [employer] COMMAND AND CONTROL SPECIALIST, COMMAND AND CONTROL SPECIALIST-C Referring Provider Active Start: June 25, 2025 End: June 25, 2025 Dr. Hossein Josue MD Attending physician Active Start: June 25, 2025 End: June 25, 2025 Source Comments (unrecognize d section and content) In the event this informatio n is protected by the Federal Confidentiality of Alcohol and Drug Abuse Patient Records regulations: The Federal rules restrict any use of the information to criminally investigate or prosecute any alcohol or drug abuse patient.[facility] the event this information is protected by the Federal Confidentiality of Alcohol and Drug Abuse Patient Records regulations: The Federal rules restrict any use of the information to criminally investigate or prosecute any alcohol or drug abuse patient.[facility] HospitalIn the event this information is protected by the Federal Confidentiality of Alcohol and Drug Abuse Patient Records regulations: The Federal rules restrict any use of the information to criminally investigate or prosecute any alcohol or drug abuse patient.[facility] HospitalIn the event this information is protected by the Federal Confidentiality of Alcohol and Drug Abuse Patient Records regulations: The Federal rules restrict any use of the information to criminally investigate or prosecute any alcohol or drug abuse patient.[facility] HospitalIn the event this information is protected by the Federal Confidentiality of Alcohol and Drug Abuse Patient Records regulations: The Federal rules restrict any use of the information to criminally investigate or prosecute any alcohol or drug abuse patient.[facility] HospitalIn the event this information is protected by the Federal Confidentiality of Alcohol and Drug Abuse Patient Records regulations: The Federal rules restrict any use of the information to criminally investigate or prosecute any alcohol or drug abuse patient.[facility] HospitalIn the event this information is protected by the Federal Confidentiality of Alcohol and Drug Abuse Patient Records regulations: The Federal rules restrict any use of the information to criminally investigate or prosecute any alcohol or drug abuse patient.[facility] HospitalIn the event this information is protected by the Federal Confidentiality of Alcohol and Drug Abuse Patient Records regulations: The Federal rules restrict any use of the information to criminally investigate or prosecute any alcohol or drug abuse patient.[facility] HospitalIn the event this information is protected by the Federal Confidentiality of Alcohol and Drug Abuse Patient Records regulations: The Federal rules restrict any use of the information to criminally investigate or prosecute any alcohol or drug abuse patient.[facility] HospitalIn the event this information is protected by the Federal Confidentiality of Alcohol and Drug Abuse Patient Records regulations: The Federal rules restrict any use of the information to criminally investigate or prosecute any alcohol or drug abuse patient.[facility] HospitalIn the event this information is protected by the Federal Confidentiality of Alcohol and Drug Abuse Patient Records regulations: The Federal rules restrict any use of the information to criminally investigate or prosecute any alcohol or drug abuse patient.[facility] HospitalIn the event this information is protected by the Federal Confidentiality of Alcohol and Drug Abuse Patient Records regulations: The Federal rules restrict any use of the information to criminally investigate or prosecute any alcohol or drug abuse patient.[facility] HospitalIn the event this information is protected by the Federal Confidentiality of Alcohol and Drug Abuse Patient Records regulations: The Federal rules restrict any use of the information to criminally investigate or prosecute any alcohol or drug abuse patient.[facility] HospitalIn the event this information is protected by the Federal Confidentiality of Alcohol and Drug Abuse Patient Records regulations: The Federal rules restrict any use of the information to criminally investigate or prosecute any alcohol or drug abuse patient.[facility] HospitalIn the event this information is protected by the Federal Confidentiality of Alcohol and Drug Abuse Patient Records regulations: The Federal rules restrict any use of the information to criminally investigate or prosecute any alcohol or drug abuse patient.[facility] HospitalIn the event this information is protected by the Federal Confidentiality of Alcohol and Drug Abuse Patient Records regulations: The Federal rules restrict any use of the information to criminally investigate or prosecute any alcohol or drug abuse patient.[facility] HospitalIn the event this information is protected by the Federal Confidentiality of Alcohol and Drug Abuse Patient Records regulations: The Federal rules restrict any use of the information to criminally investigate or prosecute any alcohol or drug abuse patient.[facility] HospitalIn the event this information is protected by the Federal Confidentiality of Alcohol and Drug Abuse Patient Records regulations: The Federal rules restrict any use of the information to criminally investigate or prosecute any alcohol or drug abuse patient.[facility] HospitalIn the event this information is protected by the Federal Confidentiality of Alcohol and Drug Abuse Patient Records regulations: The Federal rules restrict any use of the information to criminally investigate or prosecute any alcohol or drug abuse patient.[facility] HospitalIn the event this information is protected by the Federal Confidentiality of Alcohol and Drug Abuse Patient Records regulations: The Federal rules restrict any use of the information to criminally investigate or prosecute any alcohol or drug abuse patient.[facility] HospitalIn the event this information is protected by the Federal Confidentiality of Alcohol and Drug Abuse Patient Records regulations: The Federal rules restrict any use of the information to criminally investigate or prosecute any alcohol or drug abuse patient.[facility] HospitalIn the event this information is protected by the Federal Confidentiality of Alcohol and Drug Abuse Patient Records regulations: The Federal rules restrict any use of the information to criminally investigate or prosecute any alcohol or drug abuse patient.[facility] HospitalIn the event this information is protected by the Federal Confidentiality of Alcohol and Drug Abuse Patient Records regulations: The Federal rules restrict any use of the information to criminally investigate or prosecute any alcohol or drug abuse patient.[facility] HospitalIn the event this information is protected by the Federal Confidentiality of Alcohol and Drug Abuse Patient Records regulations: The Federal rules restrict any use of the information to criminally investigate or prosecute any alcohol or drug abuse patient.[facility] HospitalIn the event this information is protected by the Federal Confidentiality of Alcohol and Drug Abuse Patient Records regulations: The Federal rules restrict any use of the information to criminally investigate or prosecute any alcohol or drug abuse patient.[facility] HospitalIn the event this information is protected by the Federal Confidentiality of Alcohol and Drug Abuse Patient Records regulations: The Federal rules restrict any use of the information to criminally investigate or prosecute any alcohol or drug abuse patient.[facility] HospitalIn the event this information is protected by the Federal Confidentiality of Alcohol and Drug Abuse Patient Records regulations: The Federal rules restrict any use of the information to criminally investigate or prosecute any alcohol or drug abuse patient.[facility] HospitalIn the event this information is protected by the Federal Confidentiality of Alcohol and Drug Abuse Patient Records regulations: The Federal rules restrict any use of the information to criminally investigate or prosecute any alcohol or drug abuse patient.[facility] HospitalIn the event this information is protected by the Federal Confidentiality of Alcohol and Drug Abuse Patient Records regulations: The Federal rules restrict any use of the information to criminally investigate or prosecute any alcohol or drug abuse patient.[facility] HospitalIn the event this information is protected by the Federal Confidentiality of Alcohol and Drug Abuse Patient Records regulations: The Federal rules restrict any use of the information to criminally investigate or prosecute any alcohol or drug abuse patient.[facility] HospitalIn the event this information is protected by the Federal Confidentiality of Alcohol and Drug Abuse Patient Records regulations: The Federal rules restrict any use of the information to criminally investigate or prosecute any alcohol or drug abuse patient.[facility] HospitalIn the event this information is protected by the Federal Confidentiality of Alcohol and Drug Abuse Patient Records regulations: The Federal rules restrict any use of the information to criminally investigate or prosecute any alcohol or drug abuse patient.[facility] Reason for Visit (unrecogniz ed section and content) Reason Onset Date Comments Stroke discharge callback 04/29/2024 Reason Comments CARD New Patient 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 AND CONTROL SPECIALIST REF FOR PFO Reason Comments Preparations For Procedures Reason Comments Hospital Discharge Reason Comments Cardiac Clearance Reason Onset Date Comments Modified [place] Score 07/08/2024 Reason Comments Patient Question Reason Comments Follow Up Specialty Diagnoses / Procedures Referred By Contact Referred To Contact Cerebrovascular / NEUROSURGERY Diagnoses 6 week follow up Procedures EST NI PATIENT Ling Harding APRN.[employer] [address] [place] [address] Ling Harding APRN.[employer] [address] [place] [address] Referral ID Status Reason Start Date Expiration Date Visits Re quested Visits Authorized [id number] Closed 07/27/2024 10/25/2024 1 1 Reason Comments Patient Question Specialty Diagnoses / Procedures Referred By Contac t Referred To Contact Diagnoses PFO (patent foramen ovale) PFO (patent foramen ovale) [Q21.12] Procedures PRQ TCAT CLSR CGEN INTRATRL COMUNICAJ W/IMPLT INTRACARD ECHOCARD W/THER/DX IVNTJ INCL IMG S&I PERCUTANEOUS TRANSCATHETER 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 INTRACARDIAC ECHOCARDIOGRAPHY DURING THERAPEUTIC/DIAGNOSTIC INTERVENTION W/ IMAGING SUPERVISION/INTERPRETATION [facility] [address] [place] [address] Referral ID Status Reason Start Date Expiration Date Visits Re quested Visits Authorized [id number] 1 1 Reason Comments Appointment 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 Specialist - Other Reason Comments 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 Specialist - Other Reason Onset Date Comments Appointment [...] Sat09/11/24 at 0302, NOW (EMERGENT PROCEDURE) FOR MOLDER HAND USE ONLY, Intraprocedure heparin 3,000 Units in NaCl 0.9% 500 mL irrigation 3,000 Units, IRRIGATION, ONE TIME, 1 dose, Starting on Frida 09/10/24 at 1015, Until Sat09/11/24 at 0302, NOW (EMERGENT PROCEDURE) FOR MOLDER HAND USE ONLY For Irrigation Use Only, Intraprocedure [...] bag 20 mL, INTRAVENOUS, NEEDED, Starting on Sat09/10/24 at 1254, Until Sat09/11/24 at 0302, See [...] INTRAVENOUS, DIRECTED NEEDED, 1 dose, Starting on Sat09/10/24 at 1254, Until Sat09/11/24 at 0302, Per [...] INTRAVENOUS, DIRECTED NEEDED, 1 dose, Starting on Sat09/10/24 at 1254, Until Sat09/11/24 at 0302, Per [...] BE BASED ON THE PRIMARY CLINICAL RECORDS. [facility]. provides no warranty or guarantee of the accuracy or completeness of information in this document.
[2025-07-09 07:31] VITALS: BP 144/97; PULSE 89; RESP 16; TEMP 36.6; O2SAT 100
== END 2025-07-09 08:00 | disposition home or self-care (01) ==
PROVIDERS: PCP Nurse Practitioner; Referring Provider Internal Medicine Gastroenterology; Visit Provider Internal Medicine Gastroenterology
PROC: F00ZJWZ Instrumental Swallowing and Oral Function Assessment using Swallowing Equipment (ICD-10-PCS; CPT 43235; principal; 2025-07-09 07:25)
DX: K21.9 Gastro-esophageal reflux disease without esophagitis (principal); K22.89 Other specified disease of esophagus
CPT/HCPCS: 91010